=== PATIENT | female | born 1960 | race Caucasian/White ===

== ENCOUNTER 2023-02-04 22:59 | Emergency (ER) | payer MEDICARE, MEDICAID, SELFPAY ==
[2023-02-04 22:55] VITALS: BP 96/56; PULSE 75; RESP 12; O2SAT 99; BMI 25.9
[2023-02-04 23:08] LABS: Glucometer 88 mg/dL (74-106)
--- NOTE | 2023-02-04 23:21 | ED.AMS1 ---
HPI - Altered Mental Status General Stated Complaint: SUGAR HIGH Time Seen by Provider: 02/04/23 23:20 Source: patient and EMR Mode of arrival: ambulance Limitations: no limitations History of Present Illness HPI narrative: IDDM. has pump in place. States she ate ice cream and believes she bolus too much insulin. She was not aware of this until Squad was at her home standing over her and treating her. Her called Squelio. She still feels weak. Her POC BS is now 88. complains of suprapubic pain for a couple of days. No nausea, fever Related Data Home Medications Medication Instructions Recorded Confirmed atenolol 50 mg tablet mg 02/05/23 celecoxib 200 mg capsule mg 02/05/23 duloxetine 30 mg capsule,delayed mg PO 02/05/23 release duloxetine 60 mg capsule,delayed mg PO 02/05/23 release hydrocodone 7.5 mg-acetaminophen tab 02/05/23 325 mg tablet nitroglycerin 0.4 mg sublingual mg 02/05/23 tablet Allergies Allergy/AdvReac Type Severity Reaction Status Date / Time morphine Allergy Verified 02/04/23 22:54 codin Allergy Uncoded 02/04/23 22:54 Review of Systems ROS Status of ROS 10 or more systems reviewed and unremarkable except as noted in history and below PFS PFS Social History Smoking status: Never smoker Exam Constitutional: Vital Signs - 24 hr 02/04/23 22:55 02/04/23 23:30 02/04/23 23:43 Pulse Rate 75 Pulse Rate [Monito r] 75 Respiratory Rate 12 12 20 Blood Pressure Blood Pressure [Le ft Arm] 96/56 L Pulse Oximetry 99 Oxygen Delivery Me thod Room Air 02/04/23 23:44 02/04/23 23:45 02/05/23 00:00 Pulse Rate 76 80 83 Pulse Rate [Monito r] Respiratory Rate 22 12 14 Blood Pressure 98/55 L 102/67 Blood Pressure [Le ft Arm] Pulse Oximetry Oxygen Delivery Me thod 02/05/23 00:30 02/05/23 01:00 02/05/23 01:30 Pulse Rate 87 91 H 86 Pulse Rate [Monito r] Respiratory Rate 18 14 21 Blood Pressure 108/59 L 107/55 L 139/78 H Blood Pressure [Le ft Arm] Pulse Oximetry Oxygen Delivery Me thod Common normals: no apparent distress, oriented x3, healthy appearing and well nourished HENMT: Common normals: normocephalic Eye: Common normals: EOMs intact bilaterally and conjunctivae normal Neck & C-Spine: Common normals: full ROM Chest: Common normals: inspection of chest normal and inspection of breasts normal Respiratory: Common normals: normal respiratory effort, no use of accessory muscles and clear to auscultation bilaterally Effort & inspection: able to speak in complete sentences Cardio: Common normals: regular rate and regular rhythm GI: Other: mild RLQ and suprapubic tenderness. pump RLQ Back & Pelvis: Common normals: no CVA tenderness Extremity: Common normals: normal to inspection and no joint enlargement Neuro: Common normals: oriented x3 and CN's II-XII intact bilaterally Psych: Common normals: mental status grossly normal Skin: Common normals: no rashes or lesions noted and no wounds Course Vital Signs Vital signs: Vital Signs Pulse Rate 75 02/04/23 22:55 Respiratory Rate 12 02/04/23 22:55 Blood Pressure 96/56 L 02/04/23 22:55 Pulse Oximetry 99 02/04/23 22:55 Oxygen Delivery Method Room Air 02/04/23 22:55 Pulse Rate 86 02/05/23 01:30 Respiratory Rate 21 02/05/23 01:30 Blood Pressure 139/78 H 02/05/23 01:30 Pulse Oximetry 99 02/04/23 22:55 Oxygen Delivery Method Room Air 02/04/23 22:55 MDM - Altered Mental Status MDM Narrative Medical decision making narrative: patient presents with hypoglycemia.She admits to bolusing too much insulin after eating ice cream. She has been eating while here in the department and her BS is now up and she has turned her insulin pump back up. Mild elevated lactic acid which is expected after she was found unresponsive and hypoglycemic at home. She does not want to wait for a second lactic acid .Both she and her are ready to go and feel they can manage her BS at home Lab Data Labs: Lab Results 02/04/23 02/04/23 02/05/23 Range/Units 23:07 23:49 00:18 WBC 11.9 H (4.0-11.0) 10^3/uL RBC 4.69 (4.20-5.40) 10^6/uL Hgb 13.6 (12.0-16.0) g/dL Hct 42.2 (36.0-48.0) % MCV 90.0 (81.0-99.0) fL MCH 29.0 (26.7-34.0) pg MCHC 32.2 (29.9-35.2) g/dL RDW 14.5 (11.0-15.0) % Plt Count 291 (150-450) 10^3/uL MPV 10.8 (9.5-13.5) fL Neut % (Auto) 86.2 H (43.0-75.0) % Lymph % (Auto) 8.9 L (20.5-60.0) % [place] % (Auto) 3.9 (1.7-12.0) % Eos % (Auto) 0.3 L (0.9-7.0) % Baso % (Auto) 0.3 (0.2-2.0) % Neut # (Auto) 10.2 H (1.4-6.5) 10^3/uL Lymph # (Auto) 1.1 L (1.2-3.8) 10^3/uL [place] # (Auto) 0.5 (0.3-0.8) 10^3/uL Eos # (Auto) 0.0 (0.0-0.7) 10^3/uL Baso # (Auto) 0.0 (0.0-0.1) 10^3/uL POC Glucometer 88 284 H (74-106) mg/dL 02/05/23 Range/Units 01:28 WBC (4.0-11.0) 10^3/uL RBC (4.20-5.40) 10^6/uL Hgb (12.0-16.0) g/dL Hct (36.0-48.0) % MCV (81.0-99.0) fL MCH (26.7-34.0) pg MCHC (29.9-35.2) g/dL RDW (11.0-15.0) % Plt Count (150-450) 10^3/uL MPV (9.5-13.5) fL Neut % (Auto) (43.0-75.0) % Lymph % (Auto) (20.5-60.0) % [place] % (Auto) (1.7-12.0) % Eos % (Auto) (0.9-7.0) % Baso % (Auto) (0.2-2.0) % Neut # (Auto) (1.4-6.5) 10^3/uL Lymph # (Auto) (1.2-3.8) 10^3/uL [place] # (Auto) (0.3-0.8) 10^3/uL Eos # (Auto) (0.0-0.7) 10^3/uL Baso # (Auto) (0.0-0.1) 10^3/uL POC Glucometer 424 H (74-106) mg/dL Discharge Plan Discharge Clinical Impression: Hypoglycemia Mode of Transportation: Private Vehicle Prescriptions / Home Meds: No Action celecoxib 200 mg capsule hydrocodone-acetaminophen 7.5-325 mg tablet nitroglycerin 0.4 mg tablet, sublingual atenolol 50 mg tablet duloxetine 30 mg capsule,delayed release(DR/EC) PO duloxetine 60 mg capsule,delayed release(DR/EC) PO Instructions: Hypoglycemia in a Person with Diabetes (ED) Stand Alone Forms: Portal Instructions Referrals: SANTO FLORES [Primary Care Provider] - 1 week Follow Up Appointments: follow up with the family doctor next week
--- NOTE | 2023-02-04 23:24 | ECG_ITS ---
The [facility] Test Date: 2023-02-04 Pat Name: Deirdre Kan Department: Room: - Gender: Female Data Manager: : 1960 Requested By: SANTO FLORES Order Number: [id number] Reading MD: MELIZA STEPHENSON Measurements Intervals [place] Rate: 75 P: 37 [place]: 144 QRS: 60 QRSD: 88 T: 78 QT: 416 QTc: 445 Interpretive Statements 1100 Sinus rhythm 9110 normal ECG No previous ECG available for comparison Electronically Signed On 02-05-2023 15:41:55 EDT by MELIZA STEPHENSON
--- NOTE | 2023-02-04 23:24 | XR_ITS ---
The [address] [address] Patient Name: MONICA ACOSTA MRN: [id number] date: 1960 Sex: F Assigned Patient Location: ER Current Patient Location: ER Accession/Order Number: [id number] Exam Date: 02/04/2023 23:50 Report Date: 02/05/2023 00:20 At the request of: STEFFANIE FARNSWORTH Procedure: XR chest 1V CXR HISTORY: Hypoglycemia. COMPARISON: None. TECHNIQUE: 1 view of the chest submitted for review. FINDINGS: Mediastinal wires are aligned and intact. There is some platelike atelectasis in the left lung base. The lungs are adequately expanded.. The cardiac silhouette measures within normal. Pulmonary vascularity is unremarkable. Osseous structures are normal for age. IMPRESSION: 1. Platelike atelectasis in the left lung base. 2. Postop changes of the mediastinum. 3. Otherwise unremarkable for acute pathology. Electronically authenticated by: SARAH SOLIS Date: 02/05/2023 00:20
[2023-02-04 23:30] VITALS: RESP 12
[2023-02-04 23:43] VITALS: PULSE 75; RESP 20
[2023-02-04 23:44] VITALS: PULSE 76; RESP 22
[2023-02-04 23:45] VITALS: BP 98/55; PULSE 80; RESP 12
[2023-02-05] VITALS: BP 102/67; PULSE 83; RESP 14
[2023-02-05 00:21] LABS: Glucometer 284 mg/dL (74-106)
[2023-02-05 00:30] VITALS: BP 108/59; PULSE 87; RESP 18
[2023-02-05 00:39] LABS: Basophils Percent Auto 0.3 % (0.2-2.0); Eosinophils Percent Auto 0.3 % (0.9-7.0); Hematocrit 42.2 % (36.0-48.0); Hemoglobin 13.6 g/dL (12.0-16.0); Immature Granulocytes Abs Auto 0.05 10^3/uL (0.00-0.03); Immature Granulocytes Pct Auto 0.4 % (0.0-0.5); Lymphocytes Absolute Auto 1.1 10^3/uL (1.2-3.8); Lymphocytes Percent Auto 8.9 % (20.5-60.0); Mean Corpuscular HGB Conc 32.2 g/dL (29.9-35.2); Mean Platelet Volume 10.8 fL (9.5-13.5); Monocytes Absolute Auto 0.5 10^3/uL (0.3-0.8); Monocytes Percent Auto 3.9 % (1.7-12.0); Neutrophils Absolute Auto 10.2 10^3/uL (1.4-6.5); Neutrophils Percent Auto 86.2 % (43.0-75.0); Platelet Count 291 10^3/uL (150-450); Red Blood Count 4.69 10^6/uL (4.20-5.40); Red Cell Distribution Width 14.5 % (11.0-15.0); White Blood Count 11.9 10^3/uL (4.0-11.0)
[2023-02-05 01:00] VITALS: BP 107/55; PULSE 91; RESP 14
[2023-02-05] MEDS: IBUPROFEN 400 MG TABLET 800 MG PO (01:25)
[2023-02-05 01:29] LABS: Glucometer 424 mg/dL (74-106)
[2023-02-05 01:30] VITALS: BP 139/78; PULSE 86; RESP 21
[2023-02-05 01:39] LABS: Calcium 9.6 mg/dL (8.5-10.1); Carbon Dioxide 21.1 mmol/L (21.0-32.0); Chloride 97 mmol/L (98-107); Estimated GFR (African America >60 (>=60); Estimated GFR (Non-African Ame 56 (>=60); Glucose 230 mg/dL (74-106); Potassium 4.1 mmol/L (3.5-5.1); Sodium 134 mmol/L (136-145); Troponin I High Sensitivity 5.1 pg/mL (4.0-51.3)
[2023-02-05 01:44] LABS: Lactate/Lactic Acid 2.3 mmol/L (0.4-2.0)
== END 2023-02-05 02:10 | disposition home or self-care (01) ==
PROVIDERS: Emergency Provider Internal Medicine; PCP Family Medicine
DX: E11.649 Type 2 diabetes mellitus with hypoglycemia without coma (principal); Z79.4 Long term (current) use of insulin; Z96.41 Presence of insulin pump (external) (internal)
CPT/HCPCS: 36415; 36416; 71045; 80048; 81003; 82948; 83605; 84484; 84703; 85025; 93005; 99285

== ENCOUNTER 2023-03-29 12:50 | Emergency (ER) | payer MEDICARE, SELFPAY ==
[2023-03-29 12:54] VITALS: BP 139/72; PULSE 83; RESP 18; TEMP 36.2; O2SAT 97; BMI 26.5
--- NOTE | 2023-03-29 13:30 | XR_ITS ---
The [address] [address] Patient Name: MONICA ACOSTA MRN: [id number] date: 1960 Sex: F Assigned Patient Location: ER Current Patient Location: ER Accession/Order Number: [id number] Exam Date: 03/29/2023 13:35 Report Date: 03/29/2023 14:16 At the request of: YASMIN STAFFORD Procedure: XR acute abdomen series EXAMINATION: XR acute abdomen series HISTORY: Injury COMPARISON: No relevant comparison available. FINDINGS: LUNGS: No infiltrate, pneumothorax, or pleural effusion. MEDIASTINUM: No abnormal widening. Prior sternotomy. BOWEL GAS PATTERN: Non-obstructed. No abnormal dilation or suspicious fluid levels. Moderate stool burden. FREE AIR: None. CALCIFICATIONS: None significant. BONES: L1 prior mild compression fracture and vertebroplasty. No acute bone abnormality. OTHER: Negative. XR/XR acute abdomen series IMPRESSION: 1. No acute cardiopulmonary process. 2. No acute or suspicious abdominal findings. Electronically authenticated by: RICHARD BURNETTE Date: 03/29/2023 14:16
--- NOTE | 2023-03-29 13:31 | ED_ITS ---
Documented by User: PADMINI Horn 03/29/23 14:27 HPI - General Adult General Chief complaint: Abdominal Pain Stated complaint: ABD PAIN Time Seen by Provider: 03/29/23 13:25 Source: patient Source information: patient Mode of arrival: walk-in Limitations: no limitations History of Present Illness HPI narrative: patient is a 62-year-old female who presents to the emergency department for the evaluation of left upper quadrant abdominal pain that began after an injury. Patient states just prior to arrival a person in a motorized wheelchair accidentally pushed the table into her left upper abdomen. She states initially at the time of injury she had trouble breathing for a moment. She no longer feels like she is having trouble breathing, she denies any injury to the chest. She initially had some nausea but no longer feels nauseous. She had no symptoms prior to the injury. She states she feels as though she is swollen in the left upper quadrant. She takes an aspirin daily but no other anticoagulation. She denies any other associated injuries, flank or back pain. Related Data Home Medications Medication Instructions Recorded Confirmed atenolol 50 mg tablet 50 mg PO DAILY 02/05/23 03/29/23 celecoxib 200 mg capsule 200 mg PO Q24H 02/05/23 03/29/23 duloxetine 30 mg capsule,delayed 30 mg PO .DA 02/05/23 03/29/23 release duloxetine 60 mg capsule,delayed 60 mg PO DAILY 02/05/23 03/29/23 release hydrocodone 7.5 mg-acetaminophen 1 tab PO Q8H 02/05/23 03/29/23 325 mg tablet nitroglycerin 0.4 mg sublingual 0.4 mg sublingual Q5M PRN chest 02/05/23 03/29/23 tablet pain Previous Rx's Medication Instructions Recorded ondansetron 4 mg disintegrating 4 mg PO Q6H PRN nausea and 03/29/23 tablet vomiting #12 tabs Allergies Allergy/AdvReac Type Severity Reaction Status Date / Time lisinopril Allergy Intermediate Verified 03/29/23 12:57 morphine Allergy Verified 02/04/23 22:54 codin Allergy Uncoded 02/04/23 22:54 Review of Systems 2 ROS Constitutional Denies: fever or chills Ears, nose, mouth, and throat Denies: throat pain Cardiovascular Denies: chest pain Respiratory Reports: shortness of breath; Denies: cough Gastrointestinal Reports: abdominal pain and nausea; Denies: vomiting Genitourinary Denies: painful urination Musculoskeletal Denies: back pain or neck pain Integumentary/Breast Denies: rash Neurological Denies: headache PFSH [facility] Social History Smoking status: Never smoker Exam Narrative Exam Narrative: Gen.: Awake, alert, in no distress, resting comfortably and breathing easily watching a video on her phone Head: Normocephalic, atraumatic ENT: Moist mucous membranes Respiratory: No respiratory distress, lungs clear bilaterally; no tenderness of the inferior ribs or chest wall Cardio: Regular rate and rhythm Gastrointestinal: Abdomen is soft, nondistended. no palpable areas of swelling or distention, no pulsatile mass or hematoma noted. No ecchymosis, abrasion or redness of the abdomen. Insulin pump noted to the right anterior abdomen. Left upper quadrant is mildly tender to palpation with no pain out of proportion or rebound tenderness. No guarding noted. Extremities: Moves extremities equally, no injuries noted Psych: Normal mood and affect Neuro: No focal neuro deficit Skin: Warm, dry, intact Constitutional Vital Signs, click to edit/add: Last Vital Signs Temp 97.2 F L 03/29/23 12:54 Pulse 83 03/29/23 12:54 Resp 18 03/29/23 12:54 BP 139/72 H 03/29/23 12:54 Pulse Ox 97 03/29/23 12:54 O2 Del Method Room Air 03/29/23 12:54 Course Vital Signs Vital signs: Vital Signs Temperature 97.2 F L 03/29/23 12:54 Pulse Rate 83 03/29/23 12:54 Respiratory Rate 18 03/29/23 12:54 Blood Pressure 139/72 H 03/29/23 12:54 Pulse Oximetry 97 03/29/23 12:54 Oxygen Delivery Method Room Air 03/29/23 12:54 Temperature 97.2 F L 03/29/23 12:54 Pulse Rate 83 03/29/23 12:54 Respiratory Rate 18 03/29/23 12:54 Blood Pressure 139/72 H 03/29/23 12:54 Pulse Oximetry 97 03/29/23 12:54 Oxygen Delivery Method Room Air 03/29/23 12:54 Medical Decision Making MDM Narrative Medical decision making narrative: patient treated with NSAIDs in the emergency department. Abdomen is soft and benign in the Emergency Room with no pain out of proportion on exam or unstable vital signs. No evidence on abdominal exam of surgical abdomen. Abdominal x-rays performed as the patient stated she had difficulty breathing and upper abdominal tenderness at the time of the injury. Abdominal x-rays and chest x-ray with no evidence of acute cardiopulmonary changes or acute abnormalities. Patient discharged home to apply ice to area of injury, she is on Celebrex daily. follow-up with PCP and return to the Emergency Room if symptoms change or worsen. Patient's prescription list shows she takes [place] three times a day. follow-up with PCP. Medical Records Medical records reviewed: Yes I reviewed the patient's medical records Imaging Data Abdominal x-ray: Attestation: I have reviewed the pertinent imaging results. Radiologist's impression: Procedure: XR acute abdomen series EXAMINATION: XR acute abdomen series HISTORY: Injury COMPARISON: No relevant comparison available. FINDINGS: LUNGS: No infiltrate, pneumothorax, or pleural effusion. MEDIASTINUM: No abnormal widening. Prior sternotomy. BOWEL GAS PATTERN: Non-obstructed. No abnormal dilation or suspicious fluid levels. Moderate stool burden. FREE AIR: None. CALCIFICATIONS: None significant. BONES: L1 prior mild compression fracture and vertebroplasty. No acute bone abnormality. OTHER: Negative. IMPRESSION: 1. No acute cardiopulmonary process. 2. No acute or suspicious abdominal findings. Electronically authenticated by: RICHARD BURNETTE Date: 03/29/2023 14:16 Discharge Plan Discharge Chief Complaint: Abdominal Pain Clinical Impression: Abdominal wall contusion Patient Disposition: Home, Self-Care Time of Disposition Decision: 14:24 Condition: Good Prescriptions / Home Meds: New ondansetron 4 mg tablet,disintegrating 4 mg PO Q6H PRN (Reason: nausea and vomiting) Qty: 12 0RF No Action celecoxib 200 mg capsule 200 mg PO Q24H hydrocodone-acetaminophen 7.5-325 mg tablet 1 tab PO Q8H nitroglycerin 0.4 mg tablet, sublingual 0.4 mg sublingual Q5M PRN (Reason: chest pain) atenolol 50 mg tablet 50 mg PO DAILY duloxetine 30 mg capsule,delayed release(DR/EC) 30 mg PO .DA duloxetine 60 mg capsule,delayed release(DR/EC) 60 mg PO DAILY Hold Instructions: Doctor's Order Instructions: Blunt Abdominal Injury (ED), Contusion in Adults (ED) Stand Alone Forms: Portal Instructions Referrals: SANTO FLORES [Primary Care Provider] - 1 week Discharge Date/Time: 03/29/23 14:34 Documented by User: Solo Cordero MD 03/29/23 20:21 HPI - General Adult General Chief complaint: Abdominal Pain Stated complaint: ABD PAIN Time Seen by Provider: 03/29/23 13:25 Related Data Home Medications Medication Instructions Recorded Confirmed atenolol 50 mg tablet 50 mg PO DAILY 02/05/23 03/29/23 celecoxib 200 mg capsule 200 mg PO Q24H 02/05/23 03/29/23 duloxetine 30 mg capsule,delayed 30 mg PO .DA 02/05/23 03/29/23 release duloxetine 60 mg capsule,delayed 60 mg PO DAILY 02/05/23 03/29/23 release hydrocodone 7.5 mg-acetaminophen 1 tab PO Q8H 02/05/23 03/29/23 325 mg tablet nitroglycerin 0.4 mg sublingual 0.4 mg sublingual Q5M PRN chest 02/05/23 03/29/23 tablet pain Previous Rx's Medication Instructions Recorded ondansetron 4 mg disintegrating 4 mg PO Q6H PRN nausea and 03/29/23 tablet vomiting #12 tabs Allergies Allergy/AdvReac Type Severity Reaction Status Date / Time lisinopril Allergy Intermediate Verified 03/29/23 12:57 morphine Allergy Verified 02/04/23 22:54 codin Allergy Uncoded 02/04/23 22:54 PFSH PFSH Social History Smoking status: Never smoker Exam Constitutional Vital Signs, click to edit/add: Last Vital Signs Temp 97.2 F L 03/29/23 12:54 Pulse 83 03/29/23 12:54 Resp 18 03/29/23 12:54 BP 139/72 H 03/29/23 12:54 Pulse Ox 97 03/29/23 12:54 O2 Del Method Room Air 03/29/23 12:54 Course Vital Signs Vital signs: Vital Signs Temperature 97.2 F L 03/29/23 12:54 Pulse Rate 83 03/29/23 12:54 Respiratory Rate 18 03/29/23 12:54 Blood Pressure 139/72 H 03/29/23 12:54 Pulse Oximetry 97 03/29/23 12:54 Oxygen Delivery Method Room Air 03/29/23 12:54 Temperature 97.2 F L 03/29/23 12:54 Pulse Rate 83 03/29/23 12:54 Respiratory Rate 18 03/29/23 12:54 Blood Pressure 139/72 H 03/29/23 12:54 Pulse Oximetry 97 03/29/23 12:54 Oxygen Delivery Method Room Air 03/29/23 12:54 Medical Decision Making MDM Narrative Medical decision making narrative: patient treated with NSAIDs in the emergency department. Abdomen is soft and benign in the Emergency Room with no pain out of proportion on exam or unstable vital signs. No evidence on abdominal exam of surgical abdomen. Abdominal x-rays performed as the patient stated she had difficulty breathing and upper abdominal tenderness at the time of the injury. Abdominal x-rays and chest x-ray with no evidence of acute cardiopulmonary changes or acute abnormalities. Patient discharged home to apply ice to area of injury, she is on Celebrex daily. follow-up with PCP and return to the Emergency Room if symptoms change or worsen. Patient's prescription list shows she takes [place] three times a day. follow-up with PCP. I, Dr Cordero, have reviewed the above progress note and course of action in the ER; agree with the above. I have personally gone over history and physical, and discussed disposition and treatment plan with the PA/patient. Discharge Plan Discharge Chief Complaint: Abdominal Pain Clinical Impression: Abdominal wall contusion Patient Disposition: Home, Self-Care Time of Disposition Decision: 14:24 Condition: Good Prescriptions / Home Meds: New ondansetron 4 mg tablet,disintegrating 4 mg PO Q6H PRN (Reason: nausea and vomiting) Qty: 12 0RF No Action celecoxib 200 mg capsule 200 mg PO Q24H hydrocodone-acetaminophen 7.5-325 mg tablet 1 tab PO Q8H nitroglycerin 0.4 mg tablet, sublingual 0.4 mg sublingual Q5M PRN (Reason: chest pain) atenolol 50 mg tablet 50 mg PO DAILY duloxetine 30 mg capsule,delayed release(DR/EC) 30 mg PO .DA duloxetine 60 mg capsule,delayed release(DR/EC) 60 mg PO DAILY Hold Instructions: Doctor's Order Instructions: Blunt Abdominal Injury (ED), Contusion in Adults (ED) Stand Alone Forms: Portal Instructions Referrals: SANTO FLORES [Primary Care Provider] - 1 week Discharge Date/Time: 03/29/23 14:34
[2023-03-29] MEDS: KETOROLAC TROMETHAMINE 10 MG TABLET PO (14:00)
== END 2023-03-29 14:34 | disposition home or self-care (01) ==
PROVIDERS: Emergency Provider Emergency Medicine; PCP Family Medicine
DX: S30.1XXA Contusion of abdominal wall, initial encounter (principal); W22.8XXA Striking against or struck by other objects, initial encounter; Z79.899 Other long term (current) drug therapy
CPT/HCPCS: 74022; 99283

== ENCOUNTER 2023-04-15 09:28 | Outpatient (OUT) | payer MEDICARE, MEDICAID, SELFPAY | END 2023-04-15 09:29 | disposition home or self-care (01) | PROVIDERS: PCP Family Medicine; Visit Provider Podiatrist Foot & Ankle Surgery | DX: L60.8 Other nail disorders (principal) | CPT/HCPCS: G0463 ==

== ENCOUNTER 2024-02-07 17:31 | Emergency (ER) | payer MEDICARE, MEDICAID, SELFPAY ==
[2024-02-07 17:33] VITALS: BP 143/71; PULSE 81; TEMP 36.9; O2SAT 97; BMI 28.0
--- NOTE | 2024-02-07 17:35 | CT_ITS ---
The [address] [address] Patient Name: MONICA ACOSTA MRN: [id number] date: 1960 Sex: F Assigned Patient Location: ED.MAIN Current Patient Location: Accession/Order Number: [id number] Exam Date: 02/07/2024 15:55 Report Date: 02/07/2024 19:52 At the request of: BONNIE TRAN Procedure: CT cervical spine wo con CT CERVICAL SPINE WITHOUT : 02/07/2024 3:55 PM EDT HISTORY: Neck pain. TECHNIQUE: Thin section axial CT images were obtained from the foramen magnum to the T1 vertebral body. Thin section sagittal and coronal reconstructed images were performed from the axial data set. Dose reduction techniques were achieved by using automated exposure control and/or adjustment of mA and/or kV according to patient size and/or use of iterative reconstruction technique. CONTRAST: None. COMPARISON: None. FINDINGS: There is no fracture or vertebral body height loss. There is no destructive osseous lesion. Normal anatomic alignment is maintained. There is no spondylolisthesis. There is no significant degenerative change. Osseous mineralization is within normal limits. The paraspinal soft tissues are unremarkable. There is no prevertebral soft tissue swelling. There is no significant central canal or neural foraminal narrowing in the cervical region or upper thoracic spine. Bilateral facet joints are well maintained and well aligned. Diffusely calcified bilateral carotid arteries at the neck at the carotid bulb. Region. CT/CT cervical spine wo con IMPRESSION: No fracture or malalignment. Electronically authenticated by: RADHA LESTER Date: 02/07/2024 19:52
--- NOTE | 2024-02-07 17:35 | CT_ITS ---
The [address] [address] Patient Name: MONICA ACOSTA MRN: [id number] date: 1960 Sex: F Assigned Patient Location: ED.MAIN Current Patient Location: Accession/Order Number: [id number] Exam Date: 02/07/2024 15:55 Report Date: 02/07/2024 19:39 At the request of: BONNIE TRAN Procedure: CT thoracic spine wo con EXAM: CT thoracic spine wo con HISTORY: fall COMPARISON: None. TECHNIQUE: Contiguous thin section axial scans obtained from lower cervical to upper lumbar spine with coronal and sagittal reformatted images. Dose reduction techniques were achieved by using automated exposure control and/or adjustment of mA and/or kV according to patient size and/or use of iterative reconstruction technique. FINDINGS: Patient has had previous fracture treatment of L1 vertebrae with bone cement present likely from prior vertebroplasty. Old superior endplate healed burst fracture with slight retropulsion of L1. There is slight increased thoracic kyphosis in the upper thoracic spine but no acute thoracic spine fractures. Normal height of vertebrae. No spondylolisthesis or dislocation. Patient slightly tilted to the right and the gantry. Overall disc heights and facet joints are normal. No central canal or neural foraminal stenosis. No acute paraspinal soft tissue changes. There is some left basilar dependent lower lobe bronchiectasis with soft tissue changes around bronchi. Could be chronic infiltrate. Query acute versus chronic. There is some scarring and atelectasis at right lower lobe. Coronary artery calcifications. No rib fractures are seen adjacent to the thoracic spine. Diffuse osseous demineralization. Incidentally noted small sliding-type hernia. Dense coronary artery calcifications are partially seen. CT/CT thoracic spine wo con IMPRESSION: 1. No acute thoracic spine fractures or acute malalignment abnormality. 2. A prior fracture treatment of L1 vertebrae with bone cement. 3. Parenchymal changes of lungs at left lower lobe as discussed. Chronic left basilar bronchiectasis with either acute or chronic infiltrate left lower lobe. 4. Suggestion of severe coronary artery calcific disease. 5. Small sliding-type hernia. Electronically authenticated by: RADHA LESTER Date: 02/07/2024 19:39
--- NOTE | 2024-02-07 17:35 | XR_ITS ---
The [address] [address] Patient Name: MONICA ACOSTA MRN: [id number] date: 1960 Sex: F Assigned Patient Location: ED.MAIN Current Patient Location: ER Accession/Order Number: [id number] Exam Date: 02/07/2024 18:27 Report Date: 02/07/2024 19:53 At the request of: BONNIE TRAN Procedure: XR knee LT 3V EXAM: XR knee LT 3V HISTORY: fall COMPARISON: None. TECHNIQUE: 3 view left knee submitted. FINDINGS: Small joint effusion seen on lateral view obtained crosstable without obvious fluid layering. There is some mild joint space loss medial compartment likely on a degenerative basis. Joints otherwise well preserved. No subluxation or dislocation. No acute fracture is seen. Adequate bone mineralization for age. No osseous lesion or destructive process. Normal soft tissues. XR/XR knee LT 3V IMPRESSION: Small reactive joint effusion. No acute fractures seen. Electronically authenticated by: RADHA LESTER Date: 02/07/2024 19:53
--- NOTE | 2024-02-07 17:35 | CT_ITS ---
The [address] [address] Patient Name: MONICA ACOSTA MRN: [id number] date: 1960 Sex: F Assigned Patient Location: ED.MAIN Current Patient Location: ED.MAIN Accession/Order Number: [id number] Exam Date: 02/07/2024 15:55 Report Date: 02/07/2024 19:36 At the request of: BONNIE TRAN Procedure: CT head/brain wo con CT OF THE BRAIN WITHOUT CONTRAST: 02/07/2024 3:55 PM EDT HISTORY: Fell and hit head. TECHNIQUE: Contiguous axially collimated images were obtained through the intracranial compartment, from the vertex through the foramen magnum. Coronal and Sagittal reformatted images were prepared on a separate workstation and reviewed on the PACS for anatomic correlation. No contrast was administered. This CT exam was performed using one or more of the following dose reduction techniques: Automated exposure control, adjustment of the mA and/or kV according to patient size, or use of iterative reconstruction technique. Thin section coronal and sagittal images were reconstructed from the axial data set. All images were reviewed and interpreted. COMPARISON: None. FINDINGS: There is no intracranial hemorrhage or abnormal extra-axial fluid collection. To the extent of evaluated with noncontrast technique, there is no mass lesion appreciated. There is no mass-effect or shift of midline structures. There is mild age-related global brain volume loss with prominence of the ventricles and CSF spaces. There is no evidence of hydrocephalus. There is no effacement of the basal cisterns. No evidence of acute ischemia. Minimal chronic small vessel ischemic change. There is no evidence of a lacunar infarct. The posterior fossa, brain stem, and fourth ventricle are normal. There is no tonsillar ectopy. The calvarium is intact, without destructive lesion or depressed fracture. The mastoid air cells are well-aerated. The paranasal sinuses are normally aerated. CT/CT head/brain wo con IMPRESSION: No acute intracranial findings are process. Electronically authenticated by: RADHA LESTER Date: 02/07/2024 19:36
--- NOTE | 2024-02-07 17:35 | XR_ITS ---
The [address] [address] Patient Name: MONICA ACOSTA MRN: [id number] date: 1960 Sex: F Assigned Patient Location: ED.MAIN Current Patient Location: ER Accession/Order Number: [id number] Exam Date: 02/07/2024 18:27 Report Date: 02/07/2024 19:53 At the request of: BONNIE TRAN Procedure: XR shoulder RT min 2V EXAM: XR shoulder RT min 2V HISTORY: fall COMPARISON: None. TECHNIQUE: 2 views submitted. FINDINGS: No fracture or dislocation or acute subluxation. The acromioclavicular and glenohumeral joints are well-maintained. Osseous demineralization. No destructive or erosive change. Normal soft tissues. XR/XR shoulder RT min 2V IMPRESSION: No acute bone or joint findings. Electronically authenticated by: RADHA LESTER Date: 02/07/2024 19:53
--- NOTE | 2024-02-07 17:35 | CT_ITS ---
The [address] [address] Patient Name: MONICA ACOSTA MRN: [facility]:[id number] date: 1960 Sex: F Assigned Patient Location: ED.MAIN Current Patient Location: Accession/Order Number: [id number] Exam Date: 02/07/2024 15:55 Report Date: 02/07/2024 19:43 At the request of: BONNIE TRAN Procedure: CT lumbar spine wo con EXAM: CT lumbar spine wo con HISTORY: trauma COMPARISON: CT thoracic spine same day TECHNIQUE: Contiguous thin section axial scans obtained from lower thoracic spine through lower sacrum at S3-4 with coronal and sagittal reconstructed images. Reviewed in bone and soft tissue windows. Dose reduction techniques were achieved by using automated exposure control and/or adjustment of mA and/or kV according to patient size and/or use of iterative reconstruction technique. FINDINGS: Old superior L1 burst fracture, status post vertebral plasty treatment with placement of bone cement. There is some extravasation of bone cement into the left psoas muscle. This is chronic. There is approximately 25-30% loss of height of the anterior superior L1 vertebrae with retropulsion. This is chronic. No acute lumbosacral fractures are evident. Satisfactory alignment of vertebrae. Osseous demineralization probable osteoporosis. There is some mild anterior endplate spondylosis from T12-L1 through L3-4. The disc heights are maintained from L1-2 through L5-S1. No central canal or concerning neural foraminal stenosis. Facet joints are well aligned and maintained. No acute paraspinal soft tissue abnormality. There are a few nonobstructing calculi in calyces of both kidneys. These are small, 1 to 2 mm each, 1 midpole right kidney and lower pole right kidney and one lower pole left kidney. Retroperitoneal structures are otherwise unremarkable. Both SI joints are maintained with some mild degenerative narrowing. CT/CT lumbar spine wo con IMPRESSION: 1. No acute lumbosacral fractures. 2. Old healed superior L1 burst fracture with retropulsion. Status post treatment with bone cement from prior vertebral plasty. See comments above. 3. Other chronic changes as discussed. Electronically authenticated by: RADHA LESTER Date: 02/07/2024 19:43
--- NOTE | 2024-02-07 17:48 | ED_ITS ---
HPI HPI - Fall General Chief Complaint: Fall Stated Complaint: Fall Time Seen by Provider: 02/07/24 17:35 Source: patient Mode of arrival: ambulance History of Present Illness HPI Narrative: Patient states she was sitting in a lawn chair at a baseball game and the ground was uneven. The lawn chair tipped over and she fell with a lawn chair backwards. She says she hit her head she complains of neck pain mid back and low back pain. She complains of left knee pain and right shoulder pain. She said she did not lose consciousness. She is not on blood thinners except for an aspirin daily. She denies chest pain. No neurological deficit. She states she is allergic to codeine and morphine. She is requesting pain medication. She arrived in a c-collar with EMS. No obvious external signs of trauma. Related Data Home Medications ?Medication ?Instructions ?Recorded ?Confirmed atenolol 50 mg tablet 50 mg PO DAILY 02/05/23 03/29/23 celecoxib 200 mg capsule 200 mg PO Q24H 02/05/23 03/29/23 duloxetine 30 mg capsule,delayed 30 mg PO .DA 02/05/23 03/29/23 release duloxetine 60 mg capsule,delayed 60 mg PO DAILY 02/05/23 03/29/23 release hydrocodone 7.5 mg-acetaminophen 1 tab PO Q8H 02/05/23 03/29/23 325 mg tablet nitroglycerin 0.4 mg sublingual 0.4 mg sublingual Q5M PRN chest 02/05/23 03/29/23 tablet pain Previous Rx's ?Medication ?Instructions ?Recorded ondansetron 4 mg disintegrating 4 mg PO Q6H PRN nausea and 03/29/23 tablet vomiting #12 tabs Allergies Allergy/AdvReac Type Severity Reaction Status Date / Time lisinopril Allergy Intermediate Verified 03/29/23 12:57 Opioid HPI Opioid Management Most Recent Pain and Opioid Data: No Data to Display Review of Systems ROS Status of ROS 10 or more systems reviewed and unremark able except as noted in history and below PFSH PFSH Social History Smoking status: Never smoker Exam Narrative Exam Narrative: Time Seen: [] Vital Signs: [Per nurse's notes.] General: [Alert] Skin: [Warm, dry, no rash.] Head: [Normocephalic, atraumatic.] Neck: [Supple, trachea midline.Diffuse C-spine tenderness Eye: [Pupils are equal, round and reactive to light, extraocular movements are intact, normal conjunctiva.] Ears, nose, mouth and throat: oral mucosa moist. Cardiovascular: [Regular rate and rhythm, no murmur.] Respiratory: [Lungs are clear to auscultation, respirations are non-labored, breath sounds are equal.] Chest wall: [No tenderness, no deformity.] Gastrointestinal: [Soft, nontender, non distended, normal bowel sounds.] MSK: 5 out of 5 muscle strength x 4 extremities no calf pain or edema. Diffuse left knee tenderness. Diffuse right shoulder tenderness and pain with range of motion of the right arm. He has some mid back and low back pain. Lymphatics: [No lymphadenopathy.] Psychiatric: [Cooperative, appropriate mood & affect.] Neurological: [Alert and oriented to person, place, time, and situation, no focal neurological deficit observed.] Constitutional Vital Signs, click to edit/add: Last Vital Signs Temp 98.4 F 02/07/24 17:33 Pulse 81 02/07/24 17:33 Resp 16 02/07/24 17:33 BP 143/71 H 02/07/24 17:33 Pulse Ox 97 02/07/24 17:33 O2 Del Method Room Air 02/07/24 17:33 Course Vital Signs Vital signs: Vital Signs Temperature 98.4 F 02/07/24 17:33 Pulse Rate 81 02/07/24 17:33 Respiratory Rate 16 02/07/24 17:33 Blood Pressure 143/71 H 02/07/24 17:33 Pulse Oximetry 97 02/07/24 17:33 Oxygen Delivery Method Room Air 02/07/24 17:33 Temperature 98.4 F 02/07/24 17:33 Pulse Rate 81 02/07/24 17:33 Respiratory Rate 16 02/07/24 17:33 Blood Pressure 143/71 H 02/07/24 17:33 Pulse Oximetry 97 02/07/24 17:33 Oxygen Delivery Method Room Air 02/07/24 17:33 Discharge Plan Discharge Chief Complaint: Fall Prescriptions / Home Meds: No Action ondansetron 4 mg tablet,disintegrating 4 mg PO Q6H PRN (Reason: nausea and vomiting) Qty: 12 0RF celecoxib 200 mg capsule 200 mg PO Q24H hydrocodone-acetaminophen 7.5-325 mg tablet 1 tab PO Q8H nitroglycerin 0.4 mg tablet, sublingual 0.4 mg sublingual Q5M PRN (Reason: chest pain) atenolol 50 mg tablet 50 mg PO DAILY duloxetine 30 mg capsule,delayed release(DR/EC) 30 mg PO .DA duloxetine 60 mg capsule,delayed release(DR/EC) 60 mg PO DAILY Hold Instructions: Doctor's Order Print Language: Rwandan Referrals: SANTO FLORES [Primary Care Provider] - 1 week
[2024-02-07] MEDS: OXYCODONE HCL/ACETAMINOPHEN 5MG/325MG 1 TAB PO (17:54)
--- NOTE | 2024-02-07 18:24 | PC.NURSE ---
pt sat in a lawn chair and fell backwards hit head neck and tail bone pt in ct at this time no loc
--- NOTE | 2024-02-07 20:06 | ED_ITS ---
HPI HPI - Fall General Chief Complaint: Fall Stated Complaint: Fall Time Seen by Provider: 02/07/24 17:35 Source: patient Mode of arrival: ambulance History of Present Illness HPI Narrative: 63-year-old female presented to the emergency department and was initially seen by Dr. Levine. The patient was signed out to me after discussing the case thoroughly. Please see her full history and physical exam. Related Data Home Medications ?Medication ?Instructions ?Recorded ?Confirmed atenolol 50 mg tablet 50 mg PO DAILY 02/05/23 03/29/23 celecoxib 200 mg capsule 200 mg PO Q24H 02/05/23 03/29/23 duloxetine 30 mg capsule,delayed 30 mg PO .DA 02/05/23 03/29/23 release duloxetine 60 mg capsule,delayed 60 mg PO DAILY 02/05/23 03/29/23 release hydrocodone 7.5 mg-acetaminophen 1 tab PO Q8H 02/05/23 03/29/23 325 mg tablet nitroglycerin 0.4 mg sublingual 0.4 mg sublingual Q5M PRN chest 02/05/23 03/29/23 tablet pain Previous Rx's ?Medication ?Instructions ?Recorded ondansetron 4 mg disintegrating 4 mg PO Q6H PRN nausea and 03/29/23 tablet vomiting #12 tabs Allergies Allergy/AdvReac Type Severity Reaction Status Date / Time lisinopril Allergy Intermediate Verified 03/29/23 12:57 Opioid HPI Opioid Management Most Recent Pain and Opioid Data: Last Pain Scale 6 02/07/24 17:54 Last MAR Pain Assessment 02/07/24 17:54 PFSH PFSH Social History Smoking status: Never smoker Exam Constitutional Vital Signs, click to edit/add: Last Vital Signs Temp 98.4 F 02/07/24 17:33 Pulse 81 02/07/24 17:33 Resp 16 02/07/24 17:33 BP 143/71 H 02/07/24 17:33 Pulse Ox 97 02/07/24 17:33 O2 Del Method Room Air 02/07/24 17:33 Course Vital Signs Vital signs: Vital Signs Temperature 98.4 F 02/07/24 17:33 Pulse Rate 81 02/07/24 17:33 Respiratory Rate 16 02/07/24 17:33 Blood Pressure 143/71 H 02/07/24 17:33 Pulse Oximetry 97 02/07/24 17:33 Oxygen Delivery Method Room Air 02/07/24 17:33 Temperature 98.4 F 02/07/24 17:33 Pulse Rate 81 02/07/24 17:33 Respiratory Rate 16 02/07/24 17:33 Blood Pressure 143/71 H 02/07/24 17:33 Pulse Oximetry 97 02/07/24 17:33 Oxygen Delivery Method Room Air 02/07/24 17:33 MDM - Fall MDM Narrative Medical decision making narrative: All radiographs show no acute findings. She was ambulated and is now able to be discharged home. Findings are discussed with the patient and her family. Imaging Data CT C-spine: Radiologist's impression: ITS Impressions Cervical Spine CT 02/07/24 17:35 IMPRESSION: No fracture or malalignment. Electronically authenticated by: RADHA LESTER Date: 02/07/2024 19:[address] 02/07/24 17:35 IMPRESSION: No acute intracranial findings are process. Electronically authenticated by: RADHA LESTER Date: 02/07/2024 19:36 Knee X-Ray 02/07/24 17:35 IMPRESSION: Small reactive joint effusion. No acute fractures seen. Electronically authenticated by: RADHA LESTER Date: 02/07/2024 19:[address] 02/07/24 17:35 IMPRESSION: 1. No acute lumbosacral fractures. 2. Old healed superior L1 burst fracture with retropulsion. Status post treatment with bone cement from prior vertebral plasty. See comments above. 3. Other chronic changes as discussed. Electronically authenticated by: RADHA LESTER Date: 02/07/2024 19:43 Shoulder X-Ray 02/07/24 17:35 IMPRESSION: No acute bone or joint findings. Electronically authenticated by: RADHA LESTER Date: 02/07/2024 19:[address] 02/07/24 17:35 IMPRESSION: 1. No acute thoracic spine fractures or acute malalignment abnormality. 2. A prior fracture treatment of L1 vertebrae with bone cement. 3. Parenchymal changes of lungs at left lower lobe as discussed. Chronic left basilar bronchiectasis with either acute or chronic infiltrate left lower lobe. 4. Suggestion of severe coronary artery calcific disease. 5. Small sliding-type hernia. Electronically authenticated by: RAHDA LESTER Date: 02/07/2024 19:39 Discharge Plan Discharge Stand Alone Forms: Portal Instructions Chief Complaint: Fall Clinical Impression: Fall Patient Disposition: Home, Self-Care Time of Disposition Decision: 20:06 Condition: Good Mode of Transportation: Private Vehicle Prescriptions / Home Meds: No Action ondansetron 4 mg tablet,disintegrating 4 mg PO Q6H PRN (Reason: nausea and vomiting) Qty: 12 0RF celecoxib 200 mg capsule 200 mg PO Q24H hydrocodone-acetaminophen 7.5-325 mg tablet 1 tab PO Q8H nitroglycerin 0.4 mg tablet, sublingual 0.4 mg sublingual Q5M PRN (Reason: chest pain) atenolol 50 mg tablet 50 mg PO DAILY duloxetine 30 mg capsule,delayed release(DR/EC) 30 mg PO .DA duloxetine 60 mg capsule,delayed release(DR/EC) 60 mg PO DAILY Hold Instructions: Doctor's Order Print Language: Kazakh Instructions: Fall Prevention for Older Adults (ED) Referrals: SANTO FLORES [Primary Care Provider] - 1 week
[2024-02-07 20:13] VITALS: BP 145/72; PULSE 81; O2SAT 98
== END 2024-02-07 20:18 | disposition home or self-care (01) ==
PROVIDERS: Emergency Provider Emergency Medicine; PCP Family Medicine
DX: Z04.3 Encounter for examination and observation following other accident (principal)
CPT/HCPCS: 70450; 72125; 72128; 72131; 73030; 73562; 99284

== ENCOUNTER 2024-04-21 16:29 | Emergency (ER) | payer MEDICARE, MEDICAID, SELFPAY ==
[2024-04-21] VITALS (27 sets, daily range): BP systolic 115–132; BP diastolic 67–71; PULSE 90–103; TEMP 36.7; O2SAT 88–98; BMI 30.3
--- NOTE | 2024-04-21 16:35 | ECG_ITS ---
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
--- NOTE | 2024-04-21 16:38 | XR_ITS ---
The [address] [address] Patient Name: MONICA ACOSTA MRN: [facility]:[id number] date: 1960 Sex: F Assigned Patient Location: ER Current Patient Location: .[facility] Accession/Order Number: [id number] Exam Date: 04/21/2024 17:10 Report Date: 04/21/2024 18:27 At the request of: JULIO CESAR GARDNER Procedure: XR tibia fibula VIC 2V EXAM: XR tibia fibula VIC 2V HISTORY: fall, tib fib injuries B/L COMPARISON: Left knee x-ray 02/07/2024. Right foot, ankle 03/13/2022. TECHNIQUE: AP lateral right lower leg knee to ankle. AP lateral left lower leg knee to ankle. FINDINGS: Right lower leg/tibia-fibula: Lungs are demineralized. Multiple fractures noted distal and proximal. . Comminuted fracture of the distal tibia above the ankle with angulation. Fracture of the adjacent fibula mildly displaced. Measures do not extend to the ankle. Fracture of the proximal fibula at the knee possible extension to the tibial fibular joint which demonstrates degenerative spurring. Visualized knee without fracture or joint effusion involving femur or patella. Foot abnormalities including postoperative appearance of metatarsals appear chronic and unchanged. Generative changes at the ankle. Left lower leg tibia-fibula: Comminuted fractures of the distal tibia and fibular shaft proximal to the ankle. Delayed displaced fibular fracture fragments. Posterior displacement distal fragment tibia with mild angulation. Findings suggest a large central fragment on the AP view. Next No proximal femur fracture. Question minimal nondisplaced fracture neck of the fibula at the knee. Vascular soft tissue clip. Postoperative changes foot partially imaged. XR/XR tibia fibula VIC 2V IMPRESSION: 1. Right lower leg demonstrates comminuted fractures distal tibial shaft of fibula proximal to the ankle. 2. Fracture proximal fibula on the right at the knee mildly displaced. 3. Left lower leg comminuted fractures distal tibia and fibular shaft proximal to the ankle. Question a hairline nondisplaced fracture fibular neck at the knee. 4. Bones appear demineralized. No suspicious focal bone lesion. Degenerative changes at the ankles poorly visualized. 5. postoperative findings right and left foot partially imaged. Electronically authenticated by: JOEL DONAHUE Date: 04/21/2024 18:27
--- OUTSIDE RECORDS SUMMARY | 2024-04-21 16:38 | XMS_ITS | CCD ---
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 Dry Cleaner Presser Name Role Phone SELF, REFERRED Referring Unavailable YISEL, ALEXANDER Admitting Unavailable CHILANGO MARTINEZ Surgeon Unavailable DIONNE HYATT Attending Unavailable CT Procedure Practitioner Unavailab le UNKNOWN, PHYSICIAN Primary Care Unavailable SELF, REFERRED Referring Unavailable SELF, REFERRED Primary Care Unavailable CHILANGO MARTINEZ K Attending Unavailable SERENA MARTINEZSEIN K Admitting Unavailable Veronica Mcneill Unavailable RADHA BRANNON Admitting Unavailable RADHA BRANNON Attending Unavailable FURLOWILFREDO, DR ZEN Reinoso Primary Care Unavailable HIGHLRADHA VASQUEZ Consulting Unavailable MIKA, REBECCA Consulting Unavailable RADHA BRANNON Admitting Unavailable CLOVIS, RADHA Nogueira Attending Unavailable FURLONG, DR ZEN Reinoso Primary Care Unavailable RADHA BRANNON Admitting Unavailable RADHA BRANNON Attending Unavailable FURLONG, DR ZEN Reinoso Primary Care Unavailable FURLONG, DR ZEN Reinoso Primary Care Unavailable MARKER, DR MANJARREZ Admitting Unavailable MARKER, DR MANJARREZ Attending Unavailable MARKER, DR MANJARREZ Consulting Unavailable LAZARUS QUINTANILLA Consulting Unavailable RADHA BRANNON Admitting Unavailable RADHA BRANNON Attending Unavailable FURLONG, DR ZEN Reinoso Primary Care Unavailable HIGHLRADHA VASQUEZ Consulting Unavailable BRENNAN, REBECCA Consulting Unavailable RADHA BRANNON Admitting Unavailable CLOVIS, RADHA Nogueira Attending Unavailable FURLONG, DR ZEN Reinoso Primary Care Unavailable RADHA BRANNON Admitting Unavailable RADHA BRANNON Attending Unavailable FURLONG, DR ZEN Reinoso Primary Care Unavailable ABBAS, DR BLANCO Admitting Unavailable ABBAS, DR BLANCO Attending Unavailable FURLONG, DR ZEN Reinoso Primary Care Unavailable ABBAS, DR BLANCO Consulting Unavailable YOMAIRA, DR RICHARD Sidhu Consulting Unavailable RADHA BRANNON Consulting Unavailable KUNS, DR DEMETRA Sidhu Admitting Unavailable KUNS, DR DEMETRA Sidhu Attending Unavailable FURLONG, DR ZEN Reinoso Primary Care Unavailable ZIEBER, DR RICHARD Sidhu Consulting Unavailable CHARLOTTE, DR DEMETRA Sidhu Consulting Unavailable HIGHLANDER, RADHA Nogueira Admitting Unavailable HIGHLANDER, RADHA Nogueira Attending Unavailable FURLONG, DR ZEN Reinoso Primary Care Unavailable HIGHLANDER, RADHA Nogueira Consulting Unavailable HIGHLANDER, RADHA Nogueira Admitting Unavailable HIGHLANDER, RADHA Nogueira Attending Unavailable FURLONG, DR ZEN Reinoso Primary Care Unavailable HIGHLANDER, RADHA Nogueira Admitting Unavailable HIGHLANDER, RADHA Nogueira Attending Unavailable FURLONG, DR ZEN Reinoso Primary Care Unavailable LA[place] CHARLES, DR ANN García Consulting Unavailable HIGHLANDER, RADHA Nogueira Consulting Unavailable HIGHLANDER, RADHA Nogueira Admitting Unavailable HIGHLANDER, RADHA Nogueira Attending Unavailable FURLONG, DR ZEN Reinoso Primary Care Unavailable HIGHLANDER, RADHA Nogueira Admitting Unavailable HIGHLANDER, RADHA Nogueira Attending Unavailable FURLONG, DR ZEN Reinoso Primary Care Unavailable HIGHLANDER, RADHA Nogueira Admitting Unavailable HIGHLANDER, RADHA Nogueira Attending Unavailable FURLONG, DR ZEN Reinoso Primary Care Unavailable DEBI, FARIBA Admitting Unavailable DEBI, FARIBA Attending Unavailable FURLONG, DR ZEN Reinoso Primary Care Unavailable LUCYER, DR RICHARD Sidhu Consulting Unavailable DEBI, FARIBA Consulting Unavailable DEBI, FARIBA Admitting Unavailable DEBI, FARIBA Attending Unavailable FURLONG, DR ZEN Reinoso Primary Care Unavailable FURLONG, DR ZEN Reinoso Primary Care Unavailable SCHUYLER, DR JAMES Reinoso Consulting Unavailabl e REINFREYA, DR JAMES Reinoso Admitting Unavailabl e REINFREYA, DR JAMES Reinoso Attending Unavailabl e FURLONG, DR ZEN Reinoso Primary Care Unavailable HAY, DR HARRELL Admitting Unavailable HAY, DR HARRELL Attending Unavailable KENDRA, DR HARRELL Consulting Unavailable RICHARD BRONSON Consulting Unavailable FURLOWILFREDO, DR ZEN Reinoso Primary Care Unavailable HAY, DR HARRELL Admitting Unavailable KENDRA, DR HARRELL Attending Unavailable KENDRA, DR HARRELL Consulting Unavailable JANETT HERNANDEZ Consulting Unavailable JOEL WILBURN Consulting Unavailable REMI, GIOVANNI Lambert Consulting Unavailable SLICKEREThea, DR BACILIO Farnsworth Attending Unavailable LICHA, DR BACILIO Farnsworth Admitting Unavailable FURLONG, DR ZEN Reinoso Primary Care Unavailable JEAN-PAUL, DR CHAYITO Sidhu Consulting Unavailable ALESSANDRO, DR HENRY Consulting Unavailable SLICKEREThea, DR BACILIO Farnsworth Consulting Unavailable CLOVIS, RADHA Nogueira Consulting Unavailable ANDRADE DIAL Consulting Unavailable ENRRIQUE GONCALVES Consulting Unavailable HIGHLANDER, RADHA Nogueira Procedure Practitioner UnaASH Bedoya Consulting Unavailable FURLONG, DR ZEN Reinoso Primary Care Unavailable FAWWAD, CAMPBELL H Admitting Unavailable FAWWAD, CAMPBELL H Attending Unavailable SHANKAR, DR ANN García Consulting Unavailable ZIEBER, DR RICHARD Sidhu Consulting Unavailable HIGHLANDERRADHA Consulting Unavailable FAFREDERIC, H Consulting Unavailable VAZQUEZ Kasia, GIAN LUJAN Consulting Unavailable SOLA STEVE Consulting Unavailable HERRERA NOLAN Consulting Unavailable FURLONG, DR ZEN Reinoso Primary Care Unavailable ALESSANDRO, DR HENRY Consulting Unavailable JEROMY, DR NAOMIE Dalton Admitting Unavailable PINZON, DR NAOMIE Dalton Attending Unavailable PINZON, DR NAOMIE Dalton Consulting Unavailable ZIEBER, DR RICHARD Sidhu Consulting Unavailable HIGHLANDER, RADHA Nogueira Consulting Unavailable GAYLESILVINA Anderson Consulting Unavailable AYYAGARIBRENDA Consulting Unavailable MCCRICHARD GUAMAN Consulting Unavailable MIKHAIL, DANNY Consulting Unavailable RADHA BRANNON Admitting Unavailable HIGHLCHRISTINA, RADHA Nogueira Attending Unavailable SANDRA, DR ZEN Reinoso Primary Care Unavailable HIGHLCHRISTINA, RADHA Nogueira Consulting Unavailable FURLONG, DR ZEN Reinoso Admitting Unavailable FURLONG, DR ZEN Reinoso Attending Unavailable FURLONG, DR ZEN Reinoso Primary Care Unavailable HIGHLANDER, RADHA Nogueira Admitting Unavailable HIGHLANDER, RADHA Nogueira Attending Unavailable FURJAZZYNG, DR ZEN Reinoso Primary Care Unavailable ZIEBER, DR RICHARD Sidhu Consulting Unavailable HIGHLANDER, RADHA Nogueira Consulting Unavailable FURLONG, DR ZEN Reinoso Primary Care Unavailable FAWWAD, CAMPBELL H Admitting Unavailable FAHANNAHD, CAMPBELL H Attending Unavailable SCHUYLER, DR JAMES Reinoso Consulting UnavailPADMINI Allison Consulting Unavailable NORA NARAYAN Consulting Unavailable FAWWAD, CAMPBELL H Consulting Unavailable SARAH SOLIS Consulting Unavailable ANN PEREA Consulting Unavailable MIKHAIL, DANNY Consulting Unavailable RADHA BRANNON Admitting Unavailable HIGHLCHRISTINA, RADHA Nogueira Attending Unavailable SANDRA, DR ZEN Reinoso Primary Care Unavailable RICHARD GAVIN Attending Unavailable Zen Flores DO Primary Care Provider DEMETRA PORTER Attending Unavailable ZEN FLORES Referring Unavailable ZEN FLORES Primary Care Unavailable SANDRA, ZEN Reinoso Attending Unavailable ZEN FLORES Referring Unavailable FURLONG, ZEN G Primary Care Unavailable FURLONG, ZEN G Attending Unavailable FURLONG, ZEN G Referring Unavailable FURLONG, ZEN G Primary Care Unavailable FURLONG, ZEN G Attending Unavailable FURLONG, ZEN G Referring Unavailable FURLONG, ZEN G Primary Care Unavailable FURLONG, ZEN G Attending Unavailable FURLONG, ZEN G Referring Unavailable FURLONG, ZEN G Primary Care Unavailable DEMETRA PORTER Referring Unavailable FURLONG, ZEN G Primary Care Unavailable FURLONG, ZEN G Referring Unavailable FURLONG, ZEN G Primary Care Unavailable FURLONG, ZEN G Referring Unavailable FURLONG, ZEN G Primary Care Unavailable FURLONG, ZEN G Referring Unavailable FURLONG, ZEN G Primary Care Unavailable Allergies Allergy Classification Reported Allergen(s) Allergy Type Date of Onset Reaction(s) Facility (1 source) Adhesive Tape Drug allergy (disorder) 0 [facility] (6 sources) Amino Acids; 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: [LISINOPRIL] Drug Allergy 0 [facility] (1 source) Bee/Wasp/Ant venom; 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: [Bee/Wasp Stings] Propensity to adverse reactions (disorder) 0 [facility] (5 sources) Codeine; 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: [CODEINE] Drug Allergy 0 [facility] (5 sources) Morphine; 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: [MORPHINE] Drug Allergy 0 [facility] (2 sources) bee venom Drug allergy (disorder) [facility] (3 sources) cilostazol; 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: [CILOSTAZOL] Drug Allergy 0 [facility] (2 sources) Desonide Drug Allergy [facility] (4 sources) HYDROmorphone; 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: [HYDROMORPHONE] Drug Allergy 0 [facility] (1 source) icosapent ethyl Drug Allergy [facility] (10 sources) Adhesive agent; 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: [ADHESIVE] Propensity to adverse reactions to drug 1 [facility] (10 sources) Bee pollen; 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: [BEE POLLEN] Drug Allergy 0 [facility] (8 sources) cilostazol Drug Allergy 0 [facility] (8 sources) Codeine Drug Allergy 0 [facility] (8 sources) HYDROmorphone Drug Allergy 0 [facility] (10 sources) icosapent ethyl; 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: [ICOSAPENT ETHYL] Drug Allergy 2 Dizziness [facility] (8 sources) Lisinopril Drug Allergy 0 [facility] (8 sources) Morphine Drug Allergy 0 [facility] (10 sources) Bee Venom Protein (Honey Bee); 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: [BEE VENOM PROTEIN (HONEY BEE)] Propensity to adverse reactions to drug 1 [facility] Medications Current Medications Medication Drug Class(es) Dates Sig (Normalized) Sig (Original) acetaminophen 325 mg / HYDROcodone bitartrate 7.5 mg oral tablet (15 sources) Opioid Agonist Start: 10-18-2023 End: 12-05-2023 take 1 tablet by mouth twice daily as needed for pain HYDROcodone-acetam inophen (NORCO) 7.5-325 mg per tablet Indications: Rheumatoid arthritis involving multiple sites, unspecified whether rheumatoid factor present ([facility]) Take 1 tablet by mouth 2 (two) times a day as needed for pain. 60 tablet 0 12/05/2023 Active Start: 08-30-2023 End: 10-16-2023 take 1 tablet by mouth twice daily as needed for pain HYDROcodone-acetaminophen (NORCO) 7.5-32 5 mg per tablet Indications: Compression fracture of L1 vertebra with routine healing, subsequent encounter Take 1 tablet by mouth 2 (two) times a day as needed for pain. 14 tablet 0 10/05/2023 10/16/2023 Discontinued (Reorder) HYDROcodone-Acet aminophen Active [id number] 200 actuat albuterol 0.09 mg/actuat metered dose inhaler (9 sources) beta2-Adrenergic Agonist Start: 07-27-2021 take 2 puff(s) by inhalation every four to six hours as needed Albuterol Sulfate HFA 108 (90 Base) MCG/ACT 2 puffs as needed Inhalation every 4-6 hours for 14 days Jul, Active take 2 puff(s) by in halation every six hours as needed albuterol (PROVENTIL HFA;VENTOLIN HFA) 9 0 mcg/actuation inhaler Inhale 2 puffs every 6 (six) hours as needed. 0 Active aspirin 81 mg oral tablet (8 sources) Platelet Aggregation Inhibitor, Nonsteroidal Anti-inflammatory Drug take 81 mg by mouth once daily BABY ASPIRIN ORAL Take 81 mg by mouth daily. 0 Active atenolol 50 mg oral tablet (9 sources) beta-Adrenergic Rakan Start: take 1 tablet by mouth in the morning atenoloL (TENORMIN) 50 mg tablet Take 1 tablet (50 mg total) by mouth in the morning. 90 tablet 1 06/17/2023 Active Atenolol Active atorvastatin 80 mg oral tablet (9 sources) HMG-CoA Reductase Inhibitor Start: 05-17-2023 take 1 tablet by mouth in the morning atorvastatin (LIPITOR) 80 mg tablet Take 1 tablet (80 mg total) by mouth in the morning. 100 tablet 3 05/17/2023 Active Atorvastatin Cali cium Active benzonatate 100 mg oral capsule (1 source) Non-narcotic Antitussive Start: 07-27-2021 take 1 capsule by mouth every eight hours Tessalon Perles 100 MG 1 capsule as needed Orally Three times a day for 7 days Jul, Active celecoxib 200 mg oral capsule (8 sources) Nonsteroidal Anti-inflammatory Drug Start: 08-18-2023 take 1 capsule by mouth in the morning, then take 1 capsule by mouth at bedtime celecoxib (CeleBREX) 200 mg capsule Take 1 capsule (200 mg total) by mouth in the morning and 1 capsule (200 mg total) before bedtime. 60 capsule 2 08/18/2023 Active cholecalciferol 0.125 mg oral tablet (8 sources) Vitamin D cholecalciferol, vitamin D3, 5,000 units tablet cholecalciferol (vitamin D3) 125 mcg (5,000 unit) tablet 0 Active cyclobenzaprine hydrochloride 10 mg oral tablet (8 sources) Muscle Relaxant Start: 06-06-2023 take 1 tablet by mouth every eight hours cyclobenzaprine (FLEXERIL) 10 mg tablet take 1 tablet by mouth every 8 hours if needed 90 tablet 1 06/06/2023 Active DULoxetine 30 mg delayed release oral capsule (17 sources) Serotonin and Norepinephrine Reuptake Inhibitor Start: 08-18-2023 take 1 capsule by mouth once daily in the morning DULoxetine (CYMBALTA) 30 mg capsule take 1 capsule by mouth every morning 90 capsule 1 08/18/2023 Active Start: 04-05-2023 take 1 capsule by mo uth in the morning DULoxetine (CYMBALTA) 60 mg capsule Take 1 capsule (60 mg total) by mouth in the morning. 90 capsule 1 04/05/2023 Active DULoxetine HCl A ctive Folic Acid (1 source) Folic Acid Activ e FreeStyle Tru 14 Day Senso r (1 source) FreeStyle Tru 14 Day Sensor Active insulin aspart protamine, hu man 70 unt/ml / insulin aspart, human 30 unt/ml injectable suspension (8 sources) Insulin Analog insulin asp prt- insulin aspart (NovoLOG 70/30) 100 unit/mL (70-30) injection Inject under the skin. 0 Active insulin aspart, human 100 un t/ml injectable solution (9 sources) Insulin Analog insulin aspart U -100 (NovoLOG) 100 unit/mL injection Novolog U-100 Insulin aspart 100 unit/mL subcutaneous solution 0 Active NovoLOG Active leflunomide (1 source) Antirheumatic Agent Leflunomide Active nitroglycerin 0.4 mg sublingual tablet (8 sources) Nitrate Vasodilator Start: 11-19-2022 nitroglycerin (NITROSTAT) 0.4 MG SL tablet Indications: Coronary arteriosclerosis 1 sublingually Q5 minutes prn chest pain 25 tablet 1 11/19/2022 Active pantoprazole 40 mg delayed release oral tablet (9 sources) Proton Pump Inhibitor pantoprazo le (PROTONIX) 40 mg EC tablet daily. 0 Active Pantoprazole Sod ium Active Problems Active Problems Problem Classification Problem Date Documented Da te Episodic/Chronic Acquired foot deformities (2 sources) Other hammer toe(s) (acquired), left foot; 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: [Hallux varus (acquired), unspecified foot] Onset: 05-19-2022 Chronic Anxiety disorders (18 sources) Anxiety disorder, unspecified; 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: [Other specified anxiety disorders] Onset: 08-16-2019 05-21-2022 Chronic Cardiac dysrhythmias (10 sources) Other specified cardiac arrhythmias; 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: [Unspecified atrial fibrillation] Onset: 07-17-2020 05-21-2022 Chronic Chronic kidney disease (1 source) Chronic kidney disease; 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: [CHRONIC KIDNEY DISEASE STAGE 3A] Onset: 03-22-2022 Chronic ulcer of skin (4 sources) Non-pressure chronic ulcer of left heel and midfoot with fat layer exposed; 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: [Non-pressure chronic ulcer of other part of left foot with fat layer exposed] Onset: 02-08-2022 Chronic Coronary atherosclerosis and other heart disease (17 sources) Atherosclerotic heart disease of [place] coronary artery without angina pectoris; 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: [Acute coronary syndrome] Onset: 08-16-2019 05-21-2022 Chronic Coronary atherosclerosis and other heart disease (2 sources) Presence of aortocoronary bypass graft; 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: [Presence of coronary angioplasty implant and graft] Onset: 03-22-2022 Episodic Diabetes mellitus with complications (20 sources) Type 2 diabetes mellitus with hypoglycemia without coma; 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: [Type 2 diabetes mellitus with foot ulcer] Onset: 01-08-2022 Chronic Diabetes mellitus without complication (9 sources) Type 2 diabetes mellitus without complications; 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: [Type 1 diabetes mellitus] Onset: 01-08-1965 05-21-2022 Chronic Diabetes mellitus without complication (1 source) Presence of insulin pump (external) (internal); 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: [PRESENCE INSULIN PUMP EXT INTERNAL] Onset: 10-19-2022 Episodic Disorders of lipid metabolism (12 sources) Pure hypercholesterolemia, unspecified; 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: [Hypertriglyceridemia ] Onset: 11-04-2020 05-21-2022 Chronic Esophageal disorders (9 sources) Gastro-esophageal reflux disease without esophagitis; 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: [Gastroesophageal reflux disease] Onset: 08-18-2019 05-21-2022 Chronic Essential hypertension (11 sources) Essential (primary) hypertension; 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: [Hypertensive disorder] Onset: 08-16-2019 05-21-2022 Chronic Genitourinary symptoms and ill-defined conditions (8 sources) Urge incontinence of urine; 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: [Urge incontinence] Onset: 04-01-2023 04-01-2023 Chronic Headache; including migraine (8 sources) Migraine; 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: [Migraine, unspecified, not intractable, without status migrainosus] Onset: 08-16-2019 05-21-2022 Chronic Hypertension with complications and secondary hypertension (1 source) Hypertensive chronic kidney disease with stage 1 through stage 4 chronic kidney disease, or unspecified chronic kidney disease; 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: [HTN CKD W/STAGE 1-4 CKD/UNS CKD] Onset: 03-22-2022 Chronic Immunity disorders (8 sources) Sarcoidosis; 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: [Sarcoidosis, unspecified] Onset: 05-21-2022 05-21-2022 Chronic Immunizations and screening for infectious disease (2 sources) Contact with and (suspected) exposure to other viral communicable diseases; 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: [Encounter for immunization] Onset: 07-27-2021 Resolved: 07-27-2021 Episodic Infective arthritis and osteomyelitis (except that caused by tuberculosis or sexually transmitted disease) (1 source) Other osteomyelitis, unspecified sites; 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: [OTHER OSTEOMYELITIS UNS SITES] Onset: 04-20-2022 Chronic Intracranial injury (1 source) Concussion without loss of consciousness, initial encounter; 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: [Concussion without loss of consciousness, initial encounter] Onset: 02-09-2024 Episodic Malaise and fatigue (3 sources) Weakness; 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: [Other fatigue] Onset: 08-18-2022 Episodic Mood disorders (11 sources) Major depressive disorder, single episode, unspecified; 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: [Severe depression] Onset: 08-16-2019 04-01-2023 Chronic Nausea and vomiting (1 source) Vomiting, unspecified; 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: [VOMITING UNSPECIFIED] Onset: 08-18-2022 Episodic Osteoarthritis (13 sources) Unspecified osteoarthritis, unspecified site; 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: [Primary osteoarthritis, right ankle and foot] Onset: 05-13-2022 Chronic Osteoporosis (9 sources) Age-related osteoporosis without current pathological fracture; 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: [Senile osteoporosis] Onset: 09-18-2019 09-18-2019 Chronic Other acquired deformities (1 source) Contracture, left ankle; 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: [CONTRACTURE LEFT ANKLE] Onset: 03-22-2022 Chronic Other aftercare (1 source) 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; 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: [MANA[employer] 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 INSULIN] Onset: 10-19-2022 Episodic Other aftercare (1 source) Other halfway (current) drug therapy; 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: [OTH DETENTION CURRENT DRUG THERAPY] Onset: 10-19-2022 Episodic Other aftercare (1 source) senior care (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 aspirin; 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: [MANA[employer] 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 ASPIRIN] Onset: 08-18-2022 Episodic Other aftercare (2 sources) Encounter for therapeutic drug level monitoring; 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: [Encounter for therapeutic drug level monitoring] Onset: 03-26-2024 Episodic Other bone disease and musculoskeletal deformities (2 sources) History of amputation of left foot; 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: [Acquired absence of left foot] Onset: 12-05-2023 12-05-2023 Chronic Other bone disease and musculoskeletal deformities (1 source) Acquired absence of left foot; 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: [Acquired absence of left foot] Onset: 12-05-2023 Chronic Other fractures (14 sources) Compression fracture of lumbar spine; 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: [Wedge compression fracture of first lumbar vertebra, subsequent encounter for fracture with routine healing] Onset: 09-29-2020 09-12-2023 Episodic Other gastrointestinal disorders (1 source) Diarrhea, unspecified; 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: [DIARRHEA UNSPECIFIED] Onset: 08-18-2022 Episodic Other lower respiratory disease (1 source) Personal history of pneumonia (recurrent); 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: [PERSONAL HX OF PNEUMONIA RECURRENT] Onset: 08-18-2022 Episodic Peripheral and visceral atherosclerosis (11 sources) Peripheral vascular disease, unspecified; 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: [Peripheral vascular disease, unspecified] Onset: 01-28-2022 11-19-2022 Chronic Residual codes; unclassified (3 sources) Transient alteration of awareness; 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: [TRANSIENT ALTERATION OF AWARENESS] Onset: 10-17-2022 Episodic Residual codes; unclassified (1 source) Acquired absence of other specified parts of digestive tract; 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: [ACQ ABSENCE OTH PART DIGESTV TRACT] Onset: 08-18-2022 Episodic Rheumatoid arthritis and related disease (13 sources) Rheumatoid arthritis, unspecified; 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: [Rheumatoid nodule, right ankle and foot] Onset: 08-16-2019 05-21-2022 Chronic Screening and history of mental health and substance abuse codes (1 source) Personal history of nicotine dependence; 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: [PERSONAL HISTORY OF NICOTINE DEPEND] Onset: 10-19-2022 Episodic Septicemia (except in labor) (5 sources) Sepsis, unspecified organism; 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: [Sepsis due to Enterococcus] Onset: 03-22-2022 Episodic Sprains and strains (2 sources) Strain of muscle, fascia and tendon at neck level, initial encounter; 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: [Strain of unspecified muscle, fascia and tendon at shoulder and upper arm level, right arm, initial encounter] Onset: 02-09-2024 Episodic Substance-related disorders (1 source) Other psychoactive substance dependence with withdrawal, unspecified; 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: [OTH PSYCHOACTV DEPEND W/D UNSPEC] Onset: 08-18-2022 Chronic Unclassified (1 source) CONTACT W/AND (SUSP) EXPOS COVID-19; 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: [CONTACT W/AND (SUSP) EXPOS COVID-19] Onset: 08-18-2022 Unclassified (1 source) PERSONAL HISTORY OF COVID-19; 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: [PERSONAL HISTORY OF COVID-19] Onset: 08-18-2022 Unclassified (1 source) ACIDOSIS UNSPECIFIED; 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: [ACIDOSIS UNSPECIFIED] Onset: 08-18-2022 Unclassified (1 source) controlled sub Onset: 12-05-2023 Urinary tract infections (1 source) Urinary tract infection, site not specified; 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: [UTI SITE NOT SPECIFIED] Onset: 08-18-2022 Episodic Past or Other Problems Problem Classification Problem Date Documented Da te Episodic/Chronic Abdominal pain (4 sources) Unspecified abdominal pain; 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: [UNSPECIFIED ABDOMINAL PAIN] Onset: 11-03-2021 Episodic Acquired foot deformities (1 source) Other acquired deformities of left foot; 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: [OTHER ACQUIRED DEFORMITIES LT FOOT] Onset: 05-31-2022 Episodic Acquired foot deformities (1 source) Other acquired deformities of right foot; 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: [OTHER ACQUIRED DEFORMITIES RT FOOT] Onset: 05-31-2022 Episodic Acute 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 renal failure (1 source) Acute kidney failure, unspecified; 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: [ACUTE KIDNEY FAILURE UNSPECIFIED] Onset: 03-22-2022 Episodic Cardiac dysrhythmias (1 source) Tachycardia, unspecified; 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: [TACHYCARDIA UNSPECIFIED] Onset: 05-04-2022 Episodic Complications of surgical procedures or medical care (5 sources) Other complications of procedures, not elsewhere classified, initial encounter; 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: [OT COMPLICATIONS PROC NEC INITIAL] Onset: 03-18-2022 Episodic E Codes: Fall (1 source) Unspecified fall, initial encounter; 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: [UNSPECIFIED FALL INITIAL ENCOUNTER] Onset: 05-20-2022 Episodic Fluid and electrolyte disorders (1 source) Dehydration; 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: [DEHYDRATION] Onset: 11-05-2021 Episodic Genitourinary symptoms and ill-defined conditions (3 sources) Dysuria; 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: [Proteinuria, unspecified] Onset: 05-21-2022 Episodic Mood disorders (9 sources) Mood disorders; 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: [DEPRESSION UNSPECIFIED] Onset: 07-12-2023 Resolved: 12-05-2023 07-12-2023 Nonspecific chest pain (4 sources) Chest pain, unspecified; 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: [Other chest pain] Onset: 04-30-2022 Episodic Open wounds of extremities (4 sources) Puncture wound without foreign body, left foot, initial encounter; 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: [PUNCT WOUND W/O FB LT FOOT INITIAL] Onset: 10-27-2021 Episodic Other bone disease and musculoskeletal deformities (1 source) Acquired absence of other right toe(s); 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: [ACQUIRED ABSENCE OTHER RIGHT TOES] Onset: 01-08-2022 Episodic Other circulatory disease (4 sources) Other specified symptoms and signs involving the circulatory and respiratory systems; 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: [OTH SPEC SX SIGNS INVLV CIRC RS] Onset: 02-18-2022 Episodic Other connective tissue disease (4 sources) Pain in right foot; 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: [PAIN IN RIGHT FOOT] Onset: 06-15-2022 Episodic Other connective tissue disease (4 sources) Other specified soft tissue disorders; 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: [OTHER SPEC SOFT TISSUE DISORDERS] Onset: 05-31-2022 Episodic Other connective tissue disease (1 source) Plantar fascial fibromatosis; 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: [PLANTAR FASCIAL FIBROMATOSIS] Onset: 04-20-2022 Episodic Other connective tissue disease (1 source) Bursopathy, unspecified; 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: [BURSOPATHY UNSPECIFIED] Onset: 03-22-2022 Episodic Other connective tissue disease (1 source) Pain in left foot; 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: [PAIN IN LEFT FOOT] Onset: 01-08-2022 Episodic Other connective tissue disease (8 sources) Primary fibromyalgia syndrome; 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: [Fibromyalgia] Onset: 08-16-2019 05-21-2022 Episodic Other fractures (1 source) Wedge compression fracture of first lumbar vertebra, sequela; 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: [Wedge compression fracture of first lumbar vertebra, sequela] Onset: 05-21-2022 Episodic Other fractures (1 source) Wedge compression fracture of first lumbar vertebra, subsequent encounter for fracture with routine healing; 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: [Wedge compression fracture of first lumbar vertebra, subsequent encounter for fracture with routine healing] Onset: 05-21-2022 Episodic Other gastrointestinal disorders (1 source) Constipation, unspecified; 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: [CONSTIPATION UNSPECIFIED] Onset: 11-05-2021 Episodic Other injuries and conditions due to external causes (4 sources) Unspecified injury of head, initial encounter; 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: [UNSPECIFIED INJURY HEAD INITIAL ENC] Onset: 05-19-2022 Episodic Other lower respiratory disease (1 source) Shortness of breath; 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: [SHORTNESS OF BREATH] Onset: 05-04-2022 Episodic Other non-traumatic joint disorders (1 source) Osteophyte, right foot; 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: [OSTEOPHYTE RIGHT FOOT] Onset: 06-15-2022 Episodic Other non-traumatic joint disorders (1 source) Other specified joint disorders, left ankle and foot; 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: [OTHER SPEC JOINT D/O LT ANKLE FOOT] Onset: 03-22-2022 Episodic Other nutritional; endocrine; and metabolic disorders (8 sources) Overweight; 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: [Overweight] Onset: 04-01-2023 04-01-2023 Episodic Other nutritional; endocrine; and metabolic disorders (1 source) Overweight; 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: [Overweight] Onset: 04-01-2023 Episodic Other screening for suspected conditions (not mental disorders or infectious disease) (1 source) Other specified abnormal findings of blood chemistry; 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: [OTH SPEC ABNORMAL FINDINGS BLD CHEM] Onset: 03-22-2022 Episodic Other skin disorders (1 source) Localized swelling, mass and lump, left lower limb; 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: [LOC SWELL MASS LUMP LT LOWER LIMB] Onset: 10-28-2021 Episodic Pathological fracture (8 sources) Pathological fracture due to osteoporosis; 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: [Other osteoporosis with current pathological fracture, unspecified site, initial encounter for fracture] Onset: 07-17-2020 05-21-2022 Episodic Phlebitis; thrombophlebitis and thromboembolism (10 sources) Personal history of other venous thrombosis and embolism; 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: [Acute embolism and thrombosis of unspecified deep veins of right distal lower extremity] Onset: 08-16-2019 05-21-2022 Episodic Pneumonia (except that caused by tuberculosis or sexually transmitted disease) (3 sources) Pneumonia, unspecified organism; 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: [PNEUMONIA UNSPECIFIED ORGANISM] Onset: 03-13-2022 Episodic Respiratory failure; insufficiency; arrest (adult) (1 source) Acute respiratory failure with hypoxia; 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: [ACUTE RESPIRATORY FAIL W/HYPOXIA] Onset: 03-22-2022 Episodic Superficial injury; contusion (1 source) Contusion of right hip, initial encounter; 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: [CONTUSION RIGHT HIP INITIAL ENC] Onset: 05-20-2022 Episodic Viral infection (1 source) COVID-19 Onset: 07-27-2021 Resolved: 07-27-2021 Results Test Name Value Interpretation Reference Range Facility BASIC METABOLIC PANLon 04-13 Anion gap [Moles/Vol] 10 mmol/L Normal 5-15 [facility] Comment on above: Performed By: #### B MP #### [facility] ([id number]) [address] [address] [place] [address] Calcium [Mass/Vol] 9.9 mg/dL Normal 8.5-10.5 [facility] Comment on above: Performed By: #### B MP #### [facility] ([id number]) [address] [address] [place] [address] Chloride [Moles/Vol] 100 mmol/L Normal 98-109 [facility] Comment on above: Performed By: #### B MP #### [facility] ([id number]) [address], [address] [place] [address] CO2 [Moles/Vol] 27 mmol/L Normal 22-32 [facility] Comment on above: Performed By: #### B MP #### [facility] ([id number]) [address], [address] [place] [address] Creatinine [Mass/Vol] 0.92 mg/dL Normal 0.40-1.00 [facility] Comment on above: Result Comment: METH OD TRACEABLE TO IDMS STANDARD Performed By: #### B MP #### [facility] ([id number]) [address], [address] [place] [address] GFR/1.73 sq M.predicted among non-blacks MDRD (S/P/Bld) [Vol rate/Area] 70 mL/min/{1.73_m2} Normal >59 [facility] Comment on above: Result Comment: Reported eGFR is based on the CKD-EPI 2020 equation that does not use a race coefficient. Performed By: #### B MP #### [facility] ([id number]) [address], [address] [place] [address] Glucose [Mass/Vol] 151 mg/dL High 65-99 [facility] Comment on above: Performed By: #### B MP #### [facility] ([id number]) [address], [address] [place] [address] Potassium [Moles/Vol] 4.5 mmol/L Normal 3.5-5.0 [facility] Comment on above: Performed By: #### B MP #### [facility] ([id number]) [address], [address] [place] [address] Sodium [Moles/Vol] 137 mmol/L Normal 134-146 [facility] Comment on above: Performed By: #### B MP #### [facility] ([id number]) [address], [address] [place] [address] Urea nitrogen [Mass/Vol] 28 mg/dL High 5-27 [facility] Comment on above: Performed By: #### B MP #### [facility] ([id number]) [address], [address] [place] [address] DRUG SCREEN, URINEon 024 AMPHETAMINE/METHAMP Negative Normal NEG [facility] Comment on above: Result Comment: AMPH /METH screening cut off = 1000 ng/mL Performed By: #### SELENA STINSON #### [facility] ([id number]) [address], [address] [place] [address] BARBITURATES Negative Normal NEG [facility] Comment on above: Result Comment: Juana iturates screening cut off value = 200 ng/mL Performed By: #### SELENA STINSON #### [facility] ([id number]) [address] [place] [address] BENZODIAZEPINES Negative Normal NEG [facility] Comment on above: Result Comment: Wade odiazepines screening cut off value = 200 ng/mL Performed By: #### Jero DECKER SELENA #### [facility] ([id number]) [address] [place] [address] CANNABINOIDS Negative Normal NEG [facility] Comment on above: Result Comment: Venus abinoids/THC screening cut off value = 50 ng/mL Performed By: #### Jero DECKER FINESSEDRAGAN #### [facility] ([id number]) [address] [place] [address] COCAINE METABOLITE Negative Normal NEG [facility] Comment on above: Result Comment: Coca ine screening cut off value = 300 ng/mL Performed By: #### Jero DECKER FINESSEDRAGAN #### [facility] ([id number]) [address] [place] [address] ECSTASY Negative Normal [facility] Comment on above: Result Comment: Ecst asy screening cut off value = 500 ng/mL This report is intended for use in clinical monitoring or management of patients. Performed By: #### Jero DECKER FINESSEDRAGAN #### [facility] ([id number]) [address] [place] [address] METHADONE Negative Normal NEG [facility] Comment on above: Result Comment: Meth adone screening cut off value = 300 ng/mL. Performed By: #### Jero DECKER FINESSEDRAGAN #### [facility] ([id number]) [address], [address] [place] [address] OPIATES Negative Normal NEG [facility] Comment on above: Result Comment: Opia rafal screening cut off value = 300 ng/mL NOTE: This test is used for the detection of codeine, hydrocodone (>1000 ng/mL), morphine and hydromorphone (>900 ng/mL) in urine. Performed By: #### Jero DECKER FINESSEDRAGAN #### [facility] ([id number]) [address], [address] [place] [address] OXYCODONE Negative Normal NEG [facility] Comment on above: Result Comment: Oxyc odone screening cut off value = 300 ng/mL NOTE: This test is used for the detection of oxycodone and oxymorphone in urine. Performed By: #### Jero DECKER FINESSEDRAGAN #### [facility] ([id number]) [address], [address] [place] [address] PHENCYCLIDINE Negative Normal NEG [facility] Comment on above: Result Comment: Phen cyclidine screening cut off value = 25 ng/mL Performed By: #### Jero DECKER FINESSEDRAGAN #### [facility] ([id number]) [address], [address] [place] [address] MICROALBUMIN - ALBUMIN:CREAT ININE URINE RATIOon 03-27-2024 ALB/CREAT RATIO 37.7 mg/g creat High 0.0-30.0 [facility] Comment on above: Performed By: #### SELENA STINSON #### [facility] ([id number]) [address], [address] [place] [address] Albumin DL <= 20 mg/L (U) [Mass/Vol] 2.0 mg/dL High 0.0-1.9 [facility] Comment on above: Performed By: #### Jero DECKER FINESSEDRAGAN #### [facility] ([id number]) [address] [place] [address] URINE CREAT 53.06 mg/dL Normal [facility] Comment on above: Performed By: #### Jero DECKER FINESSEDRAGAN #### [facility] ([id number]) [address] [place] [address] COMPLETE BLOOD COUNTon 03-26 Erythrocyte distribution width (RBC) [Ratio] 14.4 % Normal 11.5-15.0 [facility] Comment on above: Performed By: #### C SHEEBA, CMP #### [facility] ([id number]) [address], [address] [place] [address] Hematocrit (Bld) [Volume fraction] 40.1 % Normal 35-47 [facility] Comment on above: Performed By: #### C SHEEBA, CMP #### [facility] ([id number]) [address], [address] [place] [address] Hemoglobin (Bld) [Mass/Vol] 13.5 g/dL Normal 11.7-15.5 [facility] Comment on above: Performed By: #### C SHEEBA, CMP #### [facility] ([id number]) [address], [address] [place] [address] MCH (RBC) [Entitic mass] 30.8 pg Normal 27-34 [facility] Comment on above: Performed By: #### C SHEEBA, CMP #### [facility] ([id number]) [address], [address] [place] [address] MCHC (RBC) [Mass/Vol] 33.7 g/dL Normal 32-36 [facility] Comment on above: Performed By: #### C SHEEBA, CMP #### [facility] ([id number]) [address], [address] [place] [address] MCV (RBC) [Entitic vol] 91 fL Normal 80-100 [facility] Comment on above: Performed By: #### C SHEEBA, CMP #### [facility] ([id number]) [address] [place] [address] Platelet mean volume (Bld) [Entitic vol] 9.8 fL Normal 7-12 [facility] Comment on above: Performed By: #### C SHEEBA, CMP #### [facility] ([id number]) [address], [address] [place] [address] Platelets (Bld) [#/Vol] 308 10*3/uL Normal 150-450 [facility] Comment on above: Performed By: #### C SHEEBA, CMP #### [facility] ([id number]) [address] [place] [address] RBC COUNT 4.39 X10E12/L Normal 3.80-5.20 [facility] Comment on above: Performed By: #### C SHEEBA, CMP #### [facility] ([id number]) [address] [place] [address] WBC (Bld) [#/Vol] 10.1 10*3/uL Normal 4.0-11.0 [facility] Comment on above: Performed By: #### C SHEEBA, CMP #### [facility] ([id number]) [address] [place] [address] COMPREHENSIVE METABOLIC PANE Neftali 03-26-2024 Albumin [Mass/Vol] 3.8 g/dL Normal 3.2-5.3 [facility] Comment on above: Performed By: #### C SHEEBA, CMP #### [facility] ([id number]) [address], [address] [place] [address] ALP [Catalytic activity/Vol] 133 U/L High 39-130 [facility] Comment on above: Performed By: #### C SHEEBA, CMP #### [facility] ([id number]) [address], [address] [place] [address] ALT [Catalytic activity/Vol] 22 U/L Normal 0-31 [facility] Comment on above: Performed By: #### C BC, CMP #### [facility] ([id number]) [address], [address] [place] [address] Anion gap [Moles/Vol] 7 mmol/L Normal 5-15 [facility] Comment on above: Performed By: #### C SHEEBA, CMP #### [facility] ([id number]) [address], [address] [place] [address] AST [Catalytic activity/Vol] 24 U/L Normal 0-41 [facility] Comment on above: Performed By: #### C BC, CMP #### [facility] ([id number]) [address] [place] [address] Bilirubin [Mass/Vol] 0.4 mg/dL Normal 0.3-1.2 [facility] Comment on above: Performed By: #### C SHEEBA, CMP #### [facility] ([id number]) [address], [address] [place] [address] Calcium [Mass/Vol] 9.6 mg/dL Normal 8.5-10.5 [facility] Comment on above: Performed By: #### C SHEEBA, CMP #### [facility] ([id number]) [address] [place] [address] Chloride [Moles/Vol] 102 mmol/L Normal 98-109 [facility] Comment on above: Performed By: #### C SHEEBA, CMP #### [facility] ([id number]) [address], [address] [place] [address] CO2 [Moles/Vol] 28 mmol/L Normal 22-32 [facility] Comment on above: Performed By: #### C SHEEBA, CMP #### [facility] ([id number]) [address], [address] [place] [address] Creatinine [Mass/Vol] 0.96 mg/dL Normal 0.40-1.00 [facility] Comment on above: Result Comment: METH OD TRACEABLE TO IDMS STANDARD Performed By: #### C SHEEBA, CMP #### [facility] ([id number]) [address] [place] [address] GFR/1.73 sq M.predicted among non-blacks MDRD (S/P/Bld) [Vol rate/Area] 66 mL/min/{1.73_m2} Normal >59 [facility] Comment on above: Result Comment: Reported eGFR is based on the CKD-EPI 2020 equation that does not use a race coefficient. Performed By: #### C BC, CMP #### [facility] ([id number]) [address] [place] [address] Glucose [Mass/Vol] 179 mg/dL High 65-99 [facility] Comment on above: Performed By: #### C BC, CMP #### [facility] ([id number]) [address] [address] [place] [address] Potassium [Moles/Vol] 5.1 mmol/L High 3.5-5.0 [facility] Comment on above: Performed By: #### C BC, CMP #### [facility] ([id number]) [address] [address] [place] [address] Protein [Mass/Vol] 7.2 g/dL Normal 6.0-8.0 [facility] Comment on above: Performed By: #### C BC, CMP #### [facility] ([id number]) [address] [address] [place] [address] Sodium [Moles/Vol] 137 mmol/L Normal 134-146 [facility] Comment on above: Performed By: #### C BC, CMP #### [facility] ([id number]) [address] [address] [place] [address] Urea nitrogen [Mass/Vol] 23 mg/dL Normal 5-27 [facility] Comment on above: Performed By: #### C BC, CMP #### [facility] ([id number]) [address] [address] [place] [address] Lipid 1996 panelon 04-01-202 4 Cholesterol [Mass/Vol] 106 mg/dL Low 150 - 200 mg/dL [facility] Cholesterol in HDL [Mass/Vol] 46 mg/dL 39 - PINF mg/dL [facility] Comment on above: HDL <40 mg/dL - High Risk HDL > or = 40mg/dL- Desirable HDL >60 mg/dL - Negative Risk Cholesterol in LDL [Mass/Vol] 38 mg/dL NINF - 130 mg/dL [facility] Comment on above: LDL <100 mg/dL - Desirable LDL >160 mg/dL - High Risk Cholesterol in VLDL [Mass/Vol] 22 mg/dL 0 - 30 mg/dL [facility] Cholesterol.total/Cho lesterol in HDL [Mass ratio] 2.3 {ratio} 1.0 - 5.0 [facility] Interpretation and review of laboratory results Abnormal [facility] Triglyceride [Mass/Vol] 110 mg/dL 27 - 150 mg/dL [facility] Cholesterol [Mass/Vol] 106 mg/dL Low 150-200 [facility] Comment on above: Performed By: #### 2 4331-1, 3016-3 #### [facility] ([id number]) [address] [address] [place] [address] Cholesterol in HDL [Mass/Vol] 46 mg/dL Normal >39 [facility] Comment on above: Result Comment: HDL <40 mg/dL - High Risk HDL > or = 40mg/dL- Desirable HDL >60 mg/dL - Negative Risk Performed By: #### 2 4331-1, 3015-3 #### [facility] ([id number]) [address] [place] [address] Cholesterol in LDL [Mass/Vol] 38 mg/dL Normal <130 [facility] Comment on above: Result Comment: LDL <100 mg/dL - Desirable LDL >160 mg/dL - High Risk Performed By: #### 2 4331-1, 3015-3 #### [facility] ([id number]) [address] [place] [address] Cholesterol in VLDL [Mass/Vol] 22 mg/dL Normal 0-30 [facility] Comment on above: Performed By: #### 2 4331-1, 3015-3 #### [facility] ([id number]) [address] [place] [address] CHOLESTEROL:HDL 2.3 Normal 1.0-5.0 [facility] Comment on above: Performed By: #### 2 4331-1, 3015-3 #### [facility] ([id number]) [address], [address] [place] [address] Triglyceride [Mass/Vol] 110 mg/dL Normal 27-150 [facility] Comment on above: Performed By: #### 2 4331-1, 3015-3 #### [facility] ([id number]) [address] [place] [address] TSHon 12-05-2023 TSH Qn 3.00 m[IU]/L [facility] TSH Qnon 12-05-2023 [facility] TSH 3.00 uIU/mL Normal 0.49-4.67 [facility] Comment on above: Performed By: #### 2 4331-1, 3015-3 #### [facility] ([id number]) [address] [facility] [place] [address] POINT OF CARE GLUCOSEon 10-06 Glucose [Mass/Vol] 252 mg/dL Critically high 74-106 [facility] Comment on above: Performed By: #### P OCGLUC ####[facility] [address] [place] [address]Dr. Abiel Clement PROF CHEM 8 (BAS METB)on Anion gap [Moles/Vol] 11.5 mmol/L Normal [facility] Comment on above: Performed By: #### B MP ####[facility] [address] [place], [place] [address]Dr. Abiel Clement Calcium [Mass/Vol] 9.6 mg/dL Normal 8.5-10.1 [facility] Comment on above: Performed By: #### B MP ####[facility] [address] [place], [place] [address]Dr. Abiel Clement Chloride [Moles/Vol] 102 mmol/L Normal 98-107 [facility] Comment on above: Performed By: #### B MP ####[facility] [address] [place], [place] [address]Dr. Abiel Clement CO2 [Moles/Vol] 30.8 mmol/L Normal 21.0-32.0 [facility] Comment on above: Performed By: #### B MP ####[facility] [address] [place], [place] [address]DrKasia Clement Creatinine [Mass/Vol] 0.72 mg/dL Normal 0.55-1.02 [facility] Comment on above: Performed By: #### B MP ####[facility] [address] [place] [address]Dr. Abiel Clement EGFR-AF JORDANIAN >60 Normal >=60 [facility] Comment on above: Performed By: #### B MP ####[facility] [address] [place] [address]Dr. bAiel Clement EGFR-NON AF JORDANIAN >60 Normal >=60 [facility] Comment on above: Performed By: #### B MP ####[facility] [address] [place] [id number]. Abiel Clement Glucose [Mass/Vol] 127 mg/dL Critically high 74-106 [facility] Comment on above: Performed By: #### B MP ####[facility] [address] [place] [id number]. Abiel Clement Potassium [Moles/Vol] 4.3 mmol/L Normal 3.5-5.1 [facility] Comment on above: Performed By: #### B MP ####[facility] [address] [place] [address]Dr. Abiel Clement Sodium [Moles/Vol] 140 mmol/L Normal 136-145 [facility] Comment on above: Performed By: #### B MP ####[facility] [address] [place] [address]Dr. Abiel Clement Urea nitrogen [Mass/Vol] 17.0 mg/dL Normal 7.0-18.0 [facility] Comment on above: Performed By: #### B MP ####[facility] [address] [place], [place] [address]Dr. Abiel Clement Urea nitrogen/Creatinine [Mass ratio] 23.6 mg/mg Normal [facility] Comment on above: Performed By: #### B MP ####[facility] [address] [place] [address]Dr. Abiel Clement CULTURE URINEon 08-07-2022 CULTURE URINE Normal [facility] Comment on above: Performed By: #### U RCX ####[facility] [address] [place] [address]Dr. Abiel Clement CBC W MANUAL DIFFon 08-05-20 22 ANISOCYTOSIS SLIGHT Normal [facility] Comment on above: Performed By: #### C ALVINO ####[facility] [address] [place] [id number]. Abiel Clement ATYPICAL LYMPH # Normal [facility] Comment on above: Performed By: #### C ALVINO ####[facility] [address] [place] [id number]. Abiel Clement ATYPICAL LYMPH % Normal [facility] Comment on above: Performed By: #### C BCMAN ####[facility] [address] [place] [id number]. Abiel Clement BAND # 0.6 103/ul Critically high 0.0-0.3 [facility] Comment on above: Performed By: #### C BCMAN ####[facility] [address] [place] [address]Dr. Yilan Clement BAND % 3 % Normal 0-5 [facility] Comment on above: Performed By: #### C ALVINO ####[facility] [address] [place] [address]Dr. Abiel Clement BASOM # 0.00 103/ul Normal 0.00-0.10 [facility] Comment on above: Performed By: #### C ALVINO ####[facility] [address] [place] [address]Dr. Abiel Clement BASOM % 0.0 % Critically low 0.2-2.[address] [facility] Comment on above: Performed By: #### C ALVINO ####[facility] [address] [place] [address]Dr. Abiel Clement BLAST # Normal [facility] Comment on above: Performed By: #### C ALVINO ####[facility] [address] [place] [address]Dr. Abiel Clement BLAST % Normal [facility] Comment on above: Performed By: #### C BCALLY ####[facility] [address]udkrtshok[address] [place] [address]Dr. Abiel Clement CORRECTED WBC Normal 4.0-11.0 [facility] Comment on above: Performed By: #### C ALVINO ####[facility] Aeosmutkbp27[address] [place] [address]Dr. Abiel Clement EOS # 0.00 103/ul Normal 0.00-0.70 [facility] Comment on above: Performed By: #### C BCALLY ####[facility] Srehzbyone65[address] [place], [place] [address]Hd. Abiel Clement EOS% 0.0 % Critically low 0.9-7.[address] [facility] Comment on above: Performed By: #### C ALVINO ####[facility] Zmzlpgdngd6867 [place], [place] [address]Ou. Abiel Clement HCT 34.0 % Critically low 36.0-48.[address] [facility] Comment on above: Performed By: #### C ALVINO ####[facility] Doerkpnaks0981 [place], [place] [address]Ni. Abiel Clement HGB 10.8 g/dl Critically low 12.0-16.[address] [facility] Comment on above: Performed By: #### C ALVINO ####[facility] Mdkawippzd3658 [place] [id number]. Abiel Clement LYMPHM # 0.61 103/ul Critically low 1.20-3.80 [facility] Comment on above: Performed By: #### Sheila DE OLIVEIRA ####[facility] Gbzxkozxgd3541 [place] [id number]. Abiel Clement LYMPHM% 3.0 % Critically low 20.5-60.[address] [facility] Comment on above: Performed By: #### Sheila DE OLIVEIRA ####[facility] Bjqhvxalgd2522 [place] [id number]. Abiel Clement MCH 27.3 pg Normal 26.7-34.0 [facility] Comment on above: Performed By: #### Sheila DE OLIVEIRA ####[facility] Itpnvevdud9793 [place], [place] [address]Hl. Abiel Clement MCHC 31.8 g/dl Normal 29.9-35.2 [facility] Comment on above: Performed By: #### C ALVINO ####[facility] Flppjrqmmv[address] [place] [id number]. Abiel Clement MCV 85.9 fL Normal 81.0-99.0 [facility] Comment on above: Performed By: #### Sheila DE OLIVEIRA ####[facility] Gwzukrqrwc4724 [place] [id number]. Abiel Clement METAMYELOCYTE # Normal [facility] Comment on above: Performed By: #### C ALVINO ####[facility] Spegotliab8551 [place] [address]Dr. Abiel Clement METAMYELOCYTE % Normal [facility] Comment on above: Performed By: #### C ALVINO ####[facility] Hkfvnpdgqa8058 [place] [id number]. Abiel Clement MONOM# 1.01 103/ul Critically high 0.30-0.80 [facility] Comment on above: Performed By: #### C ALVINO ####[facility] Wmlgubzaoa5938 [place] [address]Dr. Abiel Clement MONOM% 5.0 % Normal 1.7-12.0 [facility] Comment on above: Performed By: #### C ALVINO ####[facility] Aafnipcpak[address]1 [place] [address]Dr. Abiel Urbano MPV 11.1 fL Normal 9.5-13.5 [facility] Comment on above: Performed By: #### C ALVINO ####[facility] Bkrsepuoni28[address] [place] [address]Dr. Abiel Clement MYELOCYTE # Normal [facility] Comment on above: Performed By: #### C ALVINO ####[facility] Lmnwpjybmz1024 [place] [id number]. Abiel Clement MYELOCYTE % Normal [facility] Comment on above: Performed By: #### C ALVINO ####[facility] Gowdffploq9508 [place] [id number]. Abiel Clement NRBC Normal [facility] Comment on above: Performed By: #### C ALVINO ####[facility] Endmkjqwhv[address] [place], [place] [address]Dr. Aibel Clement PLT 283 103/ul Normal 150-450 [facility] Comment on above: Performed By: #### C ALVINO ####[facility] Kykplaslta8029 [place] [id number]. Suyapaviviana Urbano RBC 3.96 106/ul Critically low 4.20-5.40 [facility] Comment on above: Performed By: #### C ALVINO ####[facility] Tmddyzjjbl5277 [place] [address]Dr. Abiel Clemetn RDW 15.4 % Critically high 11.0-15.0 [facility] Comment on above: Performed By: #### C ALVINO ####[facility] Syzepfczkl0936 [place] [address]Dr. Suyapaviviana Urbano SEG # 18.07 103/ul Critically high 1.40-6.50 [facility] Comment on above: Performed By: #### C ALVINO ####[facility] Lcokgznzim8157 [place] [address]Dr. Suyapaviviana Urbano SEG % 89.0 % Critically high 43.0-75.0 [facility] Comment on above: Performed By: #### C ALVINO ####[facility] Zggecldzsy[address] [place], [place] [address]Dr. Abiel Clement WBC 20.3 103/ul Critically high 4.0-11.0 [facility] Comment on above: Performed By: #### C ALVINO ####[facility] Dyfypxlefv[address] [place], [place] [address]Dr. Abiel Clement LACTATE/LACTIC ACIDon 2021 Lactate [Moles/Vol] 2.5 mmol/L Critically high 0.4-1.9 [facility] Comment on above: Performed By: #### L ACT ####[facility] Wdjlebljun[address] [place], [place] [address]Dr. Abiel Clement POINT OF CARE GLUCOSEon Glucose [Mass/Vol] 238 mg/dL Critically high 74-106 [facility] Comment on above: Performed By: #### P OCGLUC ####[facility] Muxwiouyao[address] [place], [place] [address]DrKasia Clement PROF CHEM 8 (BAS METB)on Anion gap [Moles/Vol] 10.8 mmol/L Normal [facility] Comment on above: Performed By: #### B MP ####[facility] Mqlkvavjrv7322 [place] [id number]. Abiel Clement Calcium [Mass/Vol] 8.4 mg/dL Critically low 8.5-10.1 Th [facility] Comment on above: Performed By: #### B MP ####[facility] Lhsbxcarbs1541 [place] [id number]. Abiel Clement Chloride [Moles/Vol] 103 mmol/L Normal 98-107 [facility] Comment on above: Performed By: #### B MP ####[facility] Dbwycafsym3889 [place] [address]Dr. Abiel Clement CO2 [Moles/Vol] 27.0 mmol/L Normal 21.0-32.0 [facility] Comment on above: Performed By: #### B MP ####[facility] Trahfdgeee9121 [place] [address]Dr. Abiel Clement Creatinine [Mass/Vol] 1.02 mg/dL Normal 0.55-1.02 [facility] Comment on above: Performed By: #### B MP ####[facility] Pgknjofdtj6983 [place] [address]Dr. Abiel Clement EGFR-AF JORDANIAN >60 Normal >=60 [facility] Comment on above: Performed By: #### B MP ####[facility] Kdnwpiwemq[address] [place], [place] [address]Dr. Abiel Clement EGFR-NON AF JORDANIAN 55 mL/min/1.73m2 Critically low >=60 [facility] Comment on above: Performed By: #### B MP ####[facility] Seadcjbapp9678 [place] [address]Dr. Abiel Clement Glucose [Mass/Vol] 199 mg/dL Critically high 74-106 [facility] Comment on above: Performed By: #### B MP ####[facility] Rgrsteiznt0770 [place] [address]Dr. Abiel Clement Potassium [Moles/Vol] 3.8 mmol/L Normal 3.5-5.1 [facility] Comment on above: Performed By: #### B MP ####[facility] Uojugjytgo2211 [place] [id number]. Abiel Clement Sodium [Moles/Vol] 137 mmol/L Normal 136-145 The [facility] Comment on above: Performed By: #### B MP ####[facility] Qughfvkrwj1617 [place] [address]Dr. Abiel Clement Urea nitrogen [Mass/Vol] 21.0 mg/dL Critically high 7.0-18.0 [facility] Comment on above: Performed By: #### B MP ####[facility] Blphwawoec[address] [place], [place] [address]Dr. Abiel Clement Urea nitrogen/Creatinine [Mass ratio] 20.6 mg/mg Normal [facility] Comment on above: Performed By: #### B MP ####[facility] Bgoljonrke[address] [place], [place] [address]Dr. Abiel Clement ACETONE SERUMon 08-04-2022 ACETONE Negative Normal NEGATIVE [facility] Comment on above: Performed By: #### A CETON ####[facility] Rlomhcrvqk[address] [place], [place] [address]Dr. Abiel Clement AMMONIAon 08-04-2022 Ammonia (P) [Moles/Vol] 24 umol/L Normal 11-32 [facility] Comment on above: Performed By: #### A MM ####[facility] Vvmpjfwjcu[address] [place], [place] [address]Dr. Abiel Clement CBC AUTO DIFFon 08-04-2022 BASO # 0.0 103/ul Normal 0.0-0.1 [facility] Comment on above: Performed By: #### C BC ####[facility] Npeqwcbtpl[address] [place], [place] [address]Dr. Abiel Urbano Basophils/100 WBC (Bld) 0.3 % Normal 0.2-2.0 [facility] Comment on above: Performed By: #### C BC ####[facility] Ldkrkodgel3888 [place] [address]Dr. Abiel Urbano EO # 0.0 103/ul Normal 0.0-0.7 [facility] Comment on above: Performed By: #### C BC ####[facility] Susxcyzegc2822 [place] [id number]. Abiel Clement Eosinophils/100 WBC (Bld) 0.4 % Critically low 0.9-7.0 [facility] Comment on above: Performed By: #### C BC ####[facility] Njnpvrxqvo4937 [place] [address]Dr. Abiel Clement Erythrocyte distribution width (RBC) [Ratio] 15.1 % Critically high 11.0-15.0 [facility] Comment on above: Performed By: #### C BC ####[facility] Smvdlqxtud[address] [place], [place] [address]Dr. Abiel Clement Hematocrit (Bld) [Volume fraction] 37.7 % Normal 36.0-48.0 [facility] Comment on above: Performed By: #### C BC ####[facility] Bzzejlcmtj[address] [place], [place] [address]Dr. Abiel Clement Hemoglobin (Bld) [Mass/Vol] 12.4 g/dL Normal 12.0-16.0 [facility] Comment on above: Performed By: #### C BC ####[facility] Tklkgkfwtb3[address] [place], [place] [address]Dr. Abiel Clement IG # 0.02 10e3/ul Normal 0.00-0.03 [facility] Comment on above: Performed By: #### C BC ####[facility] Hnpisybxun[address] [place], [place] [address]Dr. Abiel Clement IG % 0.2 % Normal 0.0-0.5 [facility] Comment on above: Performed By: #### C BC ####[facility] Diwawkzlbl18[address] [place], [place] [address]Dr. Abiel Clement LYMPH # 0.6 103/ul Critically low 1.2-3.[address] [facility] Comment on above: Performed By: #### C BC ####[facility] Xyixxdirgi[address] [place], [place] [address]Dr. Abiel Clement Lymphocytes/100 WBC (Bld) 6.8 % Critically low 20.5-60.0 [facility] Comment on above: Performed By: #### C BC ####[facility] Boncrsgkxu1041 [place] [id number]. Abiel Clement MANUAL DIFF REQ NO Normal [facility] Comment on above: Performed By: #### C BC ####[facility] Hirsjjggph1587 [place] [id number]. Abiel Clement MCH (RBC) [Entitic mass] 27.7 pg Normal 26.7-34.0 [facility] Comment on above: Performed By: #### C BC ####[facility] Upujgidvwq7713 [place] [address]Dr. Abiel Clement MCHC (RBC) [Mass/Vol] 32.9 g/dL Normal 29.9-35.2 [facility] Comment on above: Performed By: #### C BC ####[facility] Yxqgbzbpbi[address] [place], [place] [address]Dr. Abiel Clement MCV (RBC) [Entitic vol] 84.2 fL Normal 81.0-99.0 [facility] Comment on above: Performed By: #### C BC ####[facility] Osteyqqrfa[address] [place], [place] [address]Dr. Abiel Clement MONO # 0.4 103/ul Normal 0.3-0.8 [facility] Comment on above: Performed By: #### C BC ####[facility] Lrmpgcszfx[address] [place], [place] [address]Dr. Abiel Clement Monocytes/100 WBC (Bld) 4.7 % Normal 1.7-12.0 [facility] Comment on above: Performed By: #### C BC ####[facility] Cyixopokuw[address] [place], [place] [address]Dr. Abiel Clement NEUT # 8.1 103/ul Critically high 1.4-6.5 [facility] Comment on above: Performed By: #### C BC ####[facility] Izmboljefk3758 [place] [address]Dr. Abiel Clement Neutrophils/100 WBC (Bld) 87.6 % Critically high 43.0-75.0 [facility] Comment on above: Performed By: #### C BC ####[facility] Nzoetpdwcb3542 [place] [address]Dr. Abiel Clement Platelet mean volume (Bld) [Entitic vol] 10.5 fL Normal 9.5-13.5 [facility] Comment on above: Performed By: #### C BC ####[facility] Qtpynprfxx7626 [place] [address]Dr. Abiel Clement PLT 286 103/ul Normal 150-450 [facility] Comment on above: Performed By: #### C BC ####[facility] Tdbgcdawix2304 [place] [address]Dr. Abiel Clement RBC 4.48 106/ul Normal 4.20-5.40 [facility] Comment on above: Performed By: #### C BC ####[facility] Efvcerozrd4872 [place] [address]Dr. Abiel Clement WBC 9.2 103/ul Normal 4.0-11.0 [facility] Comment on above: Performed By: #### C BC ####[facility] Uuxtclfupn5052 [place] [address]Dr. Abiel Clement CT ABD/PELV W CONon 08-04-20 CT ABD/PELV W CON Normal [facility] CT HEAD WO CONon 08-04-2022 CT HEAD WO CON Normal [facility] CULTURE BLOODon 08-04-2022 Microscopic examination of blood, culture Culture Observations: NO GROWTH AT 5 DAYS. Normal [facility] Comment on above: Performed By: #### B LDCX1 ####[facility] Djgxuhfjgu4092 [place] [id number]. Abiel Clement Performed By: #### B LDCX2 ####[facility] Hfqdtdkjqh4054 [place] [address]Dr. Abiel Clement Covid-19 PCR (CVDTB)on 07-08 SARS-CoV-2 (COVID-19) RNA CLARIBEL+probe Ql (Unsp spec) Not detected Normal NOT DETECTED [facility] Comment on above: Result Comment: When diagnostic testing is negative, the possibility of a false negative should be considered inthe context of a patient's recent exposures and the presence of clinical signs and symptomsconsistent with SARS-CoV-2.This test is not yet approved or cleared by the [place] FDA. When there are no FDA-approved or cleared tests available, and other criteria are met, FDA can make tests available under an emergency access mechanism called an Emergency Use Authorization (EUA). The EUA for this test is supported by the [employer] of Health and Human Service's declaration that circumstances exist to justify the emergency use of in vitro diagnostics for the detection and/or diagnosis of the virus that causes COVID-19. This EUA will remain in effect for the duration of the COVID-19 declaration justifying emergency of IVDs, unless it is terminated or revoked by the FDA (after which the test may no longer be used). Performed By: #### C VDTBH ####[facility] Gfmbohlrql[address] [place], [place] [address]Dr. Abiel Clement DRUG SCREEN RAPID (URINE)on 08-04-2022 AMP Negative Normal NEGATIVE [facility] Comment on above: Performed By: #### D RUGRPD ####[facility] Otzxzyugme[address] [place], [place] [address]Dr. Abiel Clement BAR Negative Normal NEGATIVE [facility] Comment on above: Performed By: #### D RUGRPD ####[facility] Uvkkqvusxp[address] [place], [place] [address]Dr. Abiel Clement BUP Negative Normal NEGATIVE [facility] Comment on above: Performed By: #### D RUGRPD ####[facility] Ylajskmgrj[address] [place], [place] [address]Dr. Abiel Clement BZO Negative Normal NEGATIVE [facility] Comment on above: Performed By: #### D RUGRPD ####[facility] Euqlxfvmsi[address] [place], [place] [address]Dr. Abiel Clement CAROLINE Negative Normal NEGATIVE [facility] Comment on above: Performed By: #### D RUGRPD ####[facility] Xpbtxsxwbn[address] [place], [place] [address]Dr. Abiel Cleemnt CUT-OFFS SEE BELOW Normal [facility] Comment on above: Result Comment: AMP (Amphetamine): 500ng/mL, BAR (Barbituates): 200 ng/mL, BZO (Benzodiazepines): 150 ng/mL, BUP (Buprenorphine): 10 ng/mL, CAROLINE (Cocaine): 150 ng/mL, mAMP (Methamphetamine): 500 ng/mL, MTD (Methadone): 200 ng/mL, OPI (Opiates): 100 ng/mL, OXY (Oxycodone): 100 ng/mL, PCP (Phencyclidine): 25 ng/mL, PPX (Propoxyphene): 300 ng/mL, THC (Cannabinoids): 50 ng/mL, TCA (Trycyclic Antidepressants): 300 ng/mL Performed By: #### D RUGRPD ####[facility] Gmhysqxpri[address] [place], [place] [address]Dr. [facility] DRUG CUT HEADER DRUG CLASS TEST SYSTEM CUT-OFF CONCENTRATIONS ARE FOLLOWS: Normal [facility] Comment on above: Performed By: #### D RUGRPD ####[facility] Euxayzorlj[address] [place], [place] [address]Dr. Abiel Clement mAMP Negative Normal NEGATIVE [facility] Comment on above: Performed By: #### D RUGRPD ####[facility] Zvbemcrevi399[address] [place], [place] [address]Dr. Abiel Clement MTD Negative Normal NEGATIVE [facility] Comment on above: Performed By: #### D RUGRPD ####[facility] Ejadueybbm[address] [place], [place] [address]Dr. Abiel Clement OPI Positive Abnormal NEGATIVE [facility] Comment on above: Performed By: #### D RUGRPD ####[facility] Hiwnnmongi[address] [place], [place] [address]Dr. Abiel Clement OXY Negative Normal NEGATIVE [facility] Comment on above: Performed By: #### D RUGRPD ####[facility] Jdcithoupc[address] [place], [place] [address]Dr. Abiel [facility] PCP Negative Normal NEGATIVE [facility] Comment on above: Performed By: #### D RUGRPD ####[facility] Iwrbbhlgtv9[address] [place], [place] [address]Dr. Abiel Clement PPX Negative Normal NEGATIVE [facility] Comment on above: Performed By: #### D RUGRPD ####[facility] Ozdtefvaxj6418 [place] [address]Dr. Abiel Urbano TCA Negative Normal NEGATIVE [facility] Comment on above: Performed By: #### D RUGRPD ####[facility] Xthabgycig[address] [place], [place] [address]Dr. Abiel Urbano THC Negative Normal NEGATIVE [facility] Comment on above: Performed By: #### D RUGRPD ####[facility] Cgceeyzxyh[address] [place], [place] [address]Dr. Abiel Clement ER URINE PROFILEon 2 Bilirubin Ql (U) Negative Normal NEGATIVE [facility] Comment on above: Performed By: #### NESSA ACE ####[facility] Yusgpudvwp8[address] [place], [place] [address]Dr. Abiel Clement Clarity (U) CLEAR Normal CLEAR [facility] Comment on above: Performed By: #### NESSA ACE ####[facility] Qhlerrbdbw[address] [place], [place] [address]Dr. Abiel Clement Color (U) LT. YELLOW Normal YELLOW [facility] Comment on above: Performed By: #### NESSA ACE ####[facility] Fxxlhcygbf435[address] [place], [place] [address]Dr. Abiel Clement ERUAHD A micrscopic examination will be performed if indicated. Normal [facility] Comment on above: Performed By: #### NESSA ACE ####[facility] Dyxabkpili375[address] [place], [place] [address]Dr. Abiel Clement Glucose Ql (U) Negative Normal NEGATIVE [facility] Comment on above: Performed By: #### NESSA ACE ####[facility] Xtfaiooltq936[address] [place], [place] [address]Dr. Abiel Clement Hemoglobin Ql (U) SMALL Abnormal NEGATIVE [facility] Comment on above: Performed By: #### NESSA ACE ####[facility] Sfszledayg[address] [place], [place] [address]Dr. Abiel Clement Ketones Ql (U) Negative Normal NEGATIVE [facility] Comment on above: Performed By: #### NESSA ACE ####[facility] Ruwmpwzzso9728 [place] [address]Dr. Abiel Clement LEUKOCYTES LARGE Abnormal NEGATIVE [facility] Comment on above: Performed By: #### NESSA ACE ####[facility] Ymvdxcshpb3336 [place] [address]Dr. Abiel Clement Nitrite Ql (U) Negative Normal NEGATIVE [facility] Comment on above: Performed By: #### NESSA ACE ####[facility] Wmfwjagwnh[address] [place], [place] [address]Dr. Abiel Clement pH (U) 5.0 [pH] Normal 5-9 [facility] Comment on above: Performed By: #### NESSA ACE ####[facility] Iwnhoxyzco398[address] [place], [place] [address]Dr. Abiel Clement SPEC GRAVITY 1.020 Normal 1.005-<=1.02 5 [facility] Comment on above: Performed By: #### NESSA ACE ####[facility] Tpuogddpxq[address] [place], [place] [address]Dr. Abiel Clement UA PROTEIN Negative Normal NEGATIVE/ TRACE [facility] Comment on above: Performed By: #### NESSA ACE ####[facility] Dloeuutohw[address] [place], [place] [address]Dr. Abiel Clement UR MICRO IND INDICATED Normal [facility] Comment on above: Performed By: #### NESSA ACE ####[facility] Cdtntryrrm[address] [place], [place] [address]Dr. Abiel Clement Urobilinogen Qn (U) 0.2 {Keegan'U}/dL Normal 0.2 - 1. 0 [facility] Comment on above: Performed By: #### CARLOS ACERO ####[facility] Kcmezuxfuw[address] [place], [place] [address]Dr. Abiel Clement ETHANOL (BLD ALC)on 08-04-20 22 ALC NOTE NOTE: 80 mg/dl is th e legal limit for a blood alcohol level Normal [facility] Comment on above: Performed By: #### E TH ####[facility] Azzwbubpew[address] [place], [place] [address]Dr. Abiel Clement Ethanol [Mass/Vol] mg/dL Normal [facility] Comment on above: Performed By: #### E TH ####[facility] Jlsopvdhfw[address] [place], [place] [address]Dr. Abiel Clement INFLUENZA A AND B AGon 08-04 INFLUANEGH SEE BELOW Normal [facility] Comment on above: Result Comment: Nega tive for Flu A protein angiten. Infection due to Flu A cannot be ruled out. Flu A angiten in the sample may be below the detection limit of the test. Performed By: #### I NFLUAB ####[facility] Twtlkojbwe[address] [place], [place] [address]Dr. Abiel Clement INFLUBNEGH SEE BELOW Normal [facility] Comment on above: Result Comment: Nega tive for Flu B protein antigen. Infection due to Flu B cannot be ruled out. Flu B antigen in the sample may be below the detection limit of the test. Performed By: #### I NFLUAB ####[facility] [address]ztskjno[address] [place], [place] [address]Dr. Abiel Clement INFLUENZA A AG Negative Normal NEGATIVE SEE COMMENT [facility] Comment on above: Performed By: #### I NFLUAB ####[facility] Qfkcnvvfet[address] [place], [place] [address]Dr. Abiel Clement INFLUENZA B AG Negative Normal NEGATIVE SEE COMMENT [facility] Comment on above: Performed By: #### I NFLUAB ####[facility] Jixoarauqr[address] [place], [place] [address]Dr. Suyapaviviana Clement INTERNAL CONTROLS Within Normal Limits Normal Wi thin Normal Limits [facility] Comment on above: Performed By: #### I NFLUAB ####[facility] Ifpqewiejw[address] [place], [place] [address]Dr. Abiel Clement LACTATE/LACTIC ACIDon 2021 Lactate [Moles/Vol] 2.0 mmol/L Critically high 0.4-1.9 [facility] Comment on above: Performed By: #### L ACT ####[facility] Dhxyhtxhmy86[address] [place] [address]Dr. Abiel Clement LIPASEon 08-04-2022 Lipase [Catalytic activity/Vol] 28.0 U/L Critically low 73.0-393.0 [facility] Comment on above: Performed By: #### L IPA, CMP, HSTROPN, TSH ####[facility] [address]em[address]wykj[address] [place] [address]Dr. Abiel Clement PH VENOUS BLOODon 08-04-2022 PCO2 VENOUS 30.0 mmHg Critically low 40.0-52.0 [facility] Comment on above: Performed By: #### P HVEN ####[facility] Rqjngybdnr6213 [place] [address]Dr. Abiel Clement pH VENOUS 7.509 Critically high 7.330-7.430 [facility] Comment on above: Performed By: #### P HVEN ####[facility] Kpnlrkncll99[address] [place] [address]Dr. Abiel Clement POINT OF CARE GLUCOSEon 07-08 Glucose [Mass/Vol] 230 mg/dL Critically high 74-106 [facility] Comment on above: Performed By: #### P OCGLUC ####[facility] Ytmlxraayw[address] [place] [address]Dr. Abiel Clement PROF 14(COMP METB)on 022 Albumin [Mass/Vol] 3.0 g/dL Critically low 3.4-5.0 [facility] Comment on above: Performed By: #### L IPA, CMP, HSTROPN, TSH ####[facility] Ygfxwguwkr4032 [place] [address]Dr. Abiel Clement Albumin/Globulin [Mass ratio] 0.7 {ratio} Normal [facility] Comment on above: Performed By: #### L IPA, CMP, HSTROPN, TSH ####[facility] Uquiawiofk027[address] [place] [address]Dr. Abiel Clement ALP [Catalytic activity/Vol] 196 U/L Critically high 46-116 [facility] Comment on above: Performed By: #### L IPA, CMP, HSTROPN, TSH ####[facility] Rxiupqywqc50[address] [place] [address]Dr. Abiel Clement ALT [Catalytic activity/Vol] 21 U/L Normal 14-59 [facility] Comment on above: Performed By: #### L IPA, CMP, HSTROPN, TSH ####[facility] Mezpabyasn50[address] [place] [address]Dr. Abiel Clement Anion gap [Moles/Vol] 12.1 mmol/L Normal [facility] Comment on above: Performed By: #### L IPA, CMP, HSTROPN, TSH ####[facility] Wbhimpcrht18[address] [place] [address]Dr. Abiel Clement AST [Catalytic activity/Vol] 29 U/L Normal 15-37 [facility] Comment on above: Performed By: #### L IPA, CMP, HSTROPN, TSH ####[facility] Rhpkzypffr8603 [place] [address]Dr. Abiel Clement Bilirubin [Mass/Vol] 0.3 mg/dL Normal 0.2-1.0 [facility] Comment on above: Performed By: #### L IPA, CMP, HSTROPN, TSH ####[facility] Ylevkmzagi2052 [place] [address]Dr. Abiel Clement Calcium [Mass/Vol] 8.9 mg/dL Normal 8.5-10.1 [facility] Comment on above: Performed By: #### L IPA, CMP, HSTROPN, TSH ####[facility] Fjoabloink4[address] [place] [address]Dr. Abiel Clement Chloride [Moles/Vol] 102 mmol/L Normal 98-107 [facility] Comment on above: Performed By: #### L IPA, CMP, HSTROPN, TSH ####[facility] Aathzmklsa36[address] [place] [address]Dr. Abiel Clement CO2 [Moles/Vol] 27.1 mmol/L Normal 21.0-32.0 [facility] Comment on above: Performed By: #### L IPA, CMP, HSTROPN, TSH ####[facility] Hmpmfrfqhe2942 [place] [address]Dr. Abiel Clement Creatinine [Mass/Vol] 0.83 mg/dL Normal 0.55-1.02 [facility] Comment on above: Performed By: #### L IPA, CMP, HSTROPN, TSH ####[facility] Nlmpxiokhk15[address] [place] [address]Dr. Abiel Clement EGFR-AF JORDANIAN >60 Normal >=60 [facility] Comment on above: Performed By: #### L IPA, CMP, HSTROPN, TSH ####[facility] Vkbtrwmdft[address] [place], [place] [address]Dr. Abiel Clement EGFR-NON AF JORDANIAN >60 Normal >=60 [facility] Comment on above: Performed By: #### L IPA, CMP, HSTROPN, TSH ####[facility] Xglmxksemy[address] [place], [place] [address]Dr. Abiel Clement Globulin (S) [Mass/Vol] 4.2 g/dL Normal [facility] Comment on above: Performed By: #### L IPA, CMP, HSTROPN, TSH ####[facility] Evtwoelzjr5309 [place] [address]Dr. Abiel Clement Glucose [Mass/Vol] 132 mg/dL Critically high 74-106 [facility] Comment on above: Performed By: #### L IPA, CMP, HSTROPN, TSH ####[facility] Ffcyygvbha3634 [place] [address]Dr. Abiel Clement Potassium [Moles/Vol] 4.2 mmol/L Normal 3.5-5.1 [facility] Comment on above: Performed By: #### L IPA, CMP, HSTROPN, TSH ####[facility] Jymhlvrgbt[address] [place] [address]Dr. Abiel Clement Protein [Mass/Vol] 7.2 g/dL Normal 6.4-8.2 [facility] Comment on above: Performed By: #### L IPA, CMP, HSTROPN, TSH ####[facility] Mtmfgbqian[address] [place], [place] [address]Dr. Abiel Clement Sodium [Moles/Vol] 137 mmol/L Normal 136-145 [facility] Comment on above: Performed By: #### L IPA, CMP, HSTROPN, TSH ####[facility] Lpjdgnqtut8[address] [place], [place] [address]Dr. Abiel Clement Urea nitrogen [Mass/Vol] 18.0 mg/dL Normal 7.0-18.0 [facility] Comment on above: Performed By: #### L IPA, CMP, HSTROPN, TSH ####[facility] Rpqdennhpo230[address] [place], [place] [address]Dr. Abiel Clement Urea nitrogen/Creatinine [Mass ratio] 21.7 mg/mg Normal [facility] Comment on above: Performed By: #### L IPA, CMP, HSTROPN, TSH ####[facility] Hcbnvajhzq[address] [place], [place] [address]Dr. Abiel Clement PROTIMEon 08-04-2022 INR Coag (PPP) [Relative time] 1.05 {INR} Normal [facility] Comment on above: Performed By: #### P TT, PT ####[facility] Vcrghiqeac199[address] [place], [place] [address]Dr. Abiel Clement INR GUIDELINES SEE BELOW Normal [facility] Comment on above: Result Comment: GELY RED INR: 2.0 - 3.0 CONDITIONS NOT LISTED BELOW 2.5 - 3.5 FOR PROSTHETIC HEART VALVE REPLACEMENT 2.5 - 3.5 RECURRENT THROMBOSIS Performed By: #### P TT, PT ####[facility] Dxfzikgtei[address] [place], [place] [address]Dr. Abiel Clement PT Coag (PPP) [Time] 11.3 s Normal 9.0-11.6 [facility] Comment on above: Performed By: #### P TT, PT ####[facility] Iirkkythwz[address] [place], [place] [address]Dr. Abiel Clement PTTon 08-04-2022 aPTT Coag (Bld) [Time] 25.2 s Normal 22.3-36.2 [facility] Comment on above: Performed By: #### P TT, PT ####[facility] Zlivuhbihv28[address] [place] [address]Dr. Abiel Clement TROPONIN, HIGH SENSITIVITYon 08-04-2022 HSTROP 5.0 pg/mL Normal 4.0-51.3 [facility] Comment on above: Result Comment: CUT- OFF POINTS HAVE BEEN ESTABLISHED BASED ON THE FOURTH UNIVERSAL DEFINITIONS OF MYOCARDIALINFARCTION. THE UPPER REFERENCE LIMIT (URL) OF TROPONIN, DEFINED THE 99TH PERCENTILE OFcTnI DISTRIBUTION IN A REFERENCE POPULATION, HAS BEEN CONFIRMED THE DECISION THRESHOLDFOR MD DIAGNOSIS. Performed By: #### L IPA, CMP, HSTROPN, TSH ####[facility] Gtobwkenra[address] [place] [address]Dr. Abiel Clement TSHon 08-04-2022 TSH 1.695 uIU/mL Normal 0.358-3.740 [facility] Comment on above: Performed By: #### L IPA, CMP, HSTROPN, TSH ####[facility] Jtgulwneaf58[address] [place] [address]Dr. Suyapaviviana Clement URINE MICROSCOPIC ONLYon BACTERIA MODERATE Abnormal NONE SEEN [facility] Comment on above: Performed By: #### DARIUSZ ACEICRO ####[facility] Uqubflzapq07[address] [place] [address]Dr. Suyaapviviana Clement Bacteria identified Cx Nom (U) INDICATED Normal [facility] Comment on above: Performed By: #### Krystle GERMAN UMICRO ####[facility] Jlvbjboqnf5[address] [place] [address]Dr. Abiel Clement CAST NONE SEEN Normal NONE SEEN [facility] Comment on above: Performed By: #### Krystle GERMAN UMICRO ####[facility] Jrcpghmmff0117 [place] [address]Dr. Abiel Clement Crystals LM Nom (Urine sed) NONE SEEN Normal NONE SEEN [facility] Comment on above: Performed By: #### NESSA ACE ####[facility] Jbklzxlukz32[address] [place] [address]Dr. Abiel Clement Epithelial cells LM Ql (Urine sed) FEW Abnormal NONE SEEN /RARE [facility] Comment on above: Performed By: #### NESSA ACE ####[facility] Pxpwgzjmpl2468 [place] [address]Dr. Abiel Clement MUCOUS NONE SEEN Normal NONE SEEN [facility] Comment on above: Performed By: #### NESSA ACE ####[facility] Gapnrxtnoe[address] [place], [place] [address]Dr. Abiel Clement RBC 2-5 Abnormal 0-2 [facility] Comment on above: Performed By: #### NESSA ACE ####[facility] Fecthjzdrq[address] [place], [place] [address]Dr. Abiel Clement WBC 10-20 Abnormal NONE SEEN [facility] Comment on above: Performed By: #### NESSA ACE ####[facility] [address]gjgvzsy[address] [place], [place] [address]Dr. Abiel Clement XR CHEST 1 Von 08-04-2022 XR CHEST 1 V Normal [facility] XR FOOT RT MIN 3 VIEWSon XR FOOT RT MIN 3 VIEWS Normal [facility] CBC AUTO DIFFon 06-03-2022 BASO # 0.0 103/ul Normal 0.0-0.1 [facility] Comment on above: Performed By: #### C BC ####[facility] Iqzixrxfcu456[address] [place], [place] [address]Dr. Abiel Clement Basophils/100 WBC (Bld) 0.5 % Normal 0.2-2.0 [facility] Comment on above: Performed By: #### C BC ####[facility] Qfmwkfgsko[address] [place], [place] [address]Dr. Abiel Clement EO # 0.3 103/ul Normal 0.0-0.7 [facility] Comment on above: Performed By: #### C BC ####[facility] Fzayknotog[address] [place], [place] [address]Dr. Abiel Clement Eosinophils/100 WBC (Bld) 3.5 % Normal 0.9-7.0 [facility] Comment on above: Performed By: #### C BC ####[facility] Hrunbslvcw0084 [place] [address]Dr. Abiel Clement Erythrocyte distribution width (RBC) [Ratio] 13.7 % Normal 11.0-15.0 [facility] Comment on above: Performed By: #### C BC ####[facility] Pqeprbppbj[address] [place], [place] [address]Dr. Abiel Clement Hematocrit (Bld) [Volume fraction] 34.2 % Critically low 36.0-48.0 [facility] Comment on above: Performed By: #### C BC ####[facility] Siklwsncoh[address] [place], [place] [address]Dr. Abiel Clement Hemoglobin (Bld) [Mass/Vol] 10.5 g/dL Critically low 12.0-16.0 [facility] Comment on above: Performed By: #### C BC ####[facility] Uprcwtkvdd[address] [place], [place] [address]Dr. Abiel Clement IG # 0.02 10e3/ul Normal 0.00-0.03 [facility] Comment on above: Performed By: #### C BC ####[facility] Ndluozlvfs[address] [place], [place] [address]Dr. Abiel Clement IG % 0.3 % Normal 0.0-0.5 [facility] Comment on above: Performed By: #### C BC ####[facility] Tefqhkbhrf[address] [place], [place] [address]Dr. Abiel Clement LYMPH # 1.4 103/ul Normal 1.2-3.8 [facility] Comment on above: Performed By: #### C BC ####[facility] Hgrqszqdrh[address] [place], [place] [address]Dr. Abiel Clement Lymphocytes/100 WBC (Bld) 18.5 % Critically low 20.5-60.0 [facility] Comment on above: Performed By: #### C BC ####[facility] Hykdrzdlwf[address] [place], [place] [address]Dr. Abiel Clement MANUAL DIFF REQ NO Normal [facility] Comment on above: Performed By: #### C BC ####[facility] Gjfphvezuq023[address] [place] [address]Dr. Abiel Urbano MCH (RBC) [Entitic mass] 27.8 pg Normal 26.7-34.0 [facility] Comment on above: Performed By: #### C BC ####[facility] Ayqydquxzv[address] [place], [place] [address]Dr. Abiel Urbano MCHC (RBC) [Mass/Vol] 30.7 g/dL Normal 29.9-35.2 [facility] Comment on above: Performed By: #### C BC ####[facility] Gsdlrmstsh[address] [place], [place] [address]Dr. Abiel Clement MCV (RBC) [Entitic vol] 90.5 fL Normal 81.0-99.0 [facility] Comment on above: Performed By: #### C BC ####[facility] Cqxwphdtes[address] [place], [place] [address]Dr. Abiel Clement MONO # 0.7 103/ul Normal 0.3-0.8 [facility] Comment on above: Performed By: #### C BC ####[facility] Ikemvfpeij[address] [place], [place] [address]Dr. Abiel Clement Monocytes/100 WBC (Bld) 8.5 % Normal 1.7-12.0 [facility] Comment on above: Performed By: #### C BC ####[facility] Frimlptuon[address] [place], [place] [address]Dr. Abiel Clement NEUT # 5.2 103/ul Normal 1.4-6.5 [facility] Comment on above: Performed By: #### C BC ####[facility] Ihivwbwici[address] [place], [place] [address]Dr. Abiel Clement Neutrophils/100 WBC (Bld) 68.7 % Normal 43.0-75.0 [facility] Comment on above: Performed By: #### C BC ####[facility] Caahugxqkj[address] [place], [place] [address]Dr. Abiel Clement Platelet mean volume (Bld) [Entitic vol] 11.0 fL Normal 9.5-13.5 [facility] Comment on above: Performed By: #### C BC ####[facility] Llaawgejzh25[address] [place] [address]Dr. Abiel Clement PLT 249 103/ul Normal 150-450 [facility] Comment on above: Performed By: #### C BC ####[facility] Eocfmmbcdm1364 [place] [address]Dr. Abiel Clement RBC 3.78 106/ul Critically low 4.20-5.40 [facility] Comment on above: Performed By: #### C BC ####[facility] Pykyqaxfdl7911 [place] [address]Dr. Abiel Clement WBC 7.6 103/ul Normal 4.0-11.0 [facility] Comment on above: Performed By: #### C BC ####[facility] Zccxkpkjfc8422 [place] [address]Dr. Abiel Clement POINT OF CARE GLUCOSEon 05-07 Glucose [Mass/Vol] 84 mg/dL Normal 74-106 [facility] Comment on above: Performed By: #### P OCGLUC ####[facility] Fpxahvfplc[address] [place] [address]Dr. Abiel Clement Glucose [Mass/Vol] 49 mg/dL Critically low 74-106 [facility] Comment on above: Result Comment: Will Repeat Test Performed By: #### P OCGLUC ####[facility] Zwgwrbicxd9091 [place] [address]Dr. Abiel Clement Glucose [Mass/Vol] 182 mg/dL Critically high 74-106 [facility] Comment on above: Performed By: #### P OCGLUC ####[facility] Kikoyzhzzl9882 [place] [address]Dr. Abiel Clement PROF CHEM 8 (BAS METB)on Anion gap [Moles/Vol] 8.5 mmol/L Normal [facility] Comment on above: Performed By: #### B MP ####[facility] Ffwzpkrcjo0434 [place] [id number]. Abiel Clement Calcium [Mass/Vol] 9.2 mg/dL Normal 8.5-10.1 [facility] Comment on above: Performed By: #### B MP ####[facility] Toebuuqkva1812 [place] [id number]. Abiel Clement Chloride [Moles/Vol] 99 mmol/L Normal 98-107 [facility] Comment on above: Performed By: #### B MP ####[facility] Tmynvvsivt4007 [place] [address]Dr. Abiel Clement CO2 [Moles/Vol] 29.5 mmol/L Normal 21.0-32.0 [facility] Comment on above: Performed By: #### B MP ####[facility] Cdfxlailed[address] [place], [place] [address]Dr. Abiel Clement Creatinine [Mass/Vol] 0.97 mg/dL Normal 0.55-1.02 [facility] Comment on above: Performed By: #### B MP ####[facility] Fxaeuliibn9355 [place] [address]Dr. Abiel Clement EGFR-AF JORDANIAN >60 Normal >=60 [facility] Comment on above: Performed By: #### B MP ####[facility] Ddqccizhsv[address] [place], [place] [address]Dr. Abiel Clement EGFR-NON AF JORDANIAN 58 mL/min/1.73m2 Critically low >=60 [facility] Comment on above: Performed By: #### B MP ####[facility] Bfoobortqb[address] [place], [place] [address]Dr. Abiel Clement Glucose [Mass/Vol] 193 mg/dL Critically high 74-106 [facility] Comment on above: Performed By: #### B MP ####[facility] Wxfbmoooil[address] [place], [place] [address]Dr. Abiel Clement Potassium [Moles/Vol] 4.0 mmol/L Normal 3.5-5.1 [facility] Comment on above: Performed By: #### B MP ####[facility] Tbhdhcyrsr0088 [place] [id number]. Abiel Clement Sodium [Moles/Vol] 133 mmol/L Critically low 136-145 [facility] Comment on above: Performed By: #### B MP ####[facility] Cztmljmfja[address] [place] [address]Dr. Abiel Clement Urea nitrogen [Mass/Vol] 20.0 mg/dL Critically high 7.0-18.0 [facility] Comment on above: Performed By: #### B MP ####[facility] Arsntlcpcn[address] [place] [address]Dr. Abiel Clement Urea nitrogen/Creatinine [Mass ratio] 20.6 mg/mg Normal [facility] Comment on above: Performed By: #### B MP ####[facility] Ybcitzmdmx3733 [place] [address]Dr. Abiel Clement POINT OF CARE GLUCOSEon 05-07 Glucose [Mass/Vol] 62 mg/dL Critically low 74-106 [facility] Comment on above: Performed By: #### P OCGLUC ####[facility] Jiuxuksuid4467 [place] [address]Dr. Suyapalan Clement Glucose [Mass/Vol] 75 mg/dL Normal 74-106 [facility] Comment on above: Performed By: #### P OCGLUC ####[facility] Qedmeyufdn[address] [place], [place] [address]Dr. Suyapalan Clement Glucose [Mass/Vol] 83 mg/dL Normal 74-106 [facility] Comment on above: Performed By: #### P OCGLUC ####[facility] Nsyecgfuhf8587 [place] [address]Dr. Suyapalan Clement Glucose [Mass/Vol] 107 mg/dL Critically high 74-106 [facility] Comment on above: Performed By: #### P OCGLUC ####[facility] Hkbggoiodv[address] [place], [place] [address]Dr. Yilan Clement Glucose [Mass/Vol] 140 mg/dL Critically high 74-106 [facility] Comment on above: Performed By: #### P OCGLUC ####[facility] Nkzosjyjsm[address] [place] [id number]. Abiel Clement CBC AUTO DIFFon 06-01-2022 BASO # 0.0 103/ul Normal 0.0-0.1 [facility] Comment on above: Performed By: #### C BC ####[facility] P[address]dqerws[address] [place], [place] [address]Dr. Suyapaviviana Clement Basophils/100 WBC (Bld) 0.3 % Normal 0.2-2.0 [facility] Comment on above: Performed By: #### C BC ####[facility] Xbkqidgfgl[address] [place], [place] [address]Dr. Abiel Clement EO # 0.2 103/ul Normal 0.0-0.7 [facility] Comment on above: Performed By: #### C BC ####[facility] Obridoknoq[address] [place], [place] [address]Dr. Abiel Clement Eosinophils/100 WBC (Bld) 1.9 % Normal 0.9-7.0 [facility] Comment on above: Performed By: #### C BC ####[facility] Jfnyszyjte[address] [place], [place] [address]Dr. Suyapaviviana Clement Erythrocyte distribution width (RBC) [Ratio] 13.8 % Normal 11.0-15.0 [facility] Comment on above: Performed By: #### C BC ####[facility] [address]axdfcxb[address] [place], [place] [address]Dr. Abiel Clement Hematocrit (Bld) [Volume fraction] 37.7 % Normal 36.0-48.0 [facility] Comment on above: Performed By: #### C BC ####[facility] Ewzjnyepxb[address] [place], [place] [address]Dr. Abiel Clement Hemoglobin (Bld) [Mass/Vol] 11.7 g/dL Critically low 12.0-16.0 [facility] Comment on above: Performed By: #### C BC ####[facility] Kpnqlwlibz[address] [place], [place] [address]Dr. Abiel Clement IG # 0.03 10e3/ul Normal 0.00-0.03 [facility] Comment on above: Performed By: #### C BC ####[facility] Xtffasdzid0838 [place] [id number]. Abiel Clement IG % 0.3 % Normal 0.0-0.5 [facility] Comment on above: Performed By: #### C BC ####[facility] Highnjaglc7028 [place] [id number]. Abiel Clement LYMPH # 1.1 103/ul Critically low 1.2-3.8 [facility] Comment on above: Performed By: #### C BC ####[facility] Ncwupulcyl2345 [place] [id number]. Suyapaviviana Clement Lymphocytes/100 WBC (Bld) 12.0 % Critically low 20.5-60.0 [facility] Comment on above: Performed By: #### C BC ####[facility] Kvkjnxouwf9587 [place] [address]Dr. Abiel Clement MANUAL DIFF REQ NO Normal [facility] Comment on above: Performed By: #### C BC ####[facility] Cbcxpqqowq4662 [place] [id number]. Abiel Clement MCH (RBC) [Entitic mass] 27.9 pg Normal 26.7-34.0 [facility] Comment on above: Performed By: #### C BC ####[facility] Aljswllriq4471 [place] [address]Dr. Abiel Clement MCHC (RBC) [Mass/Vol] 31.0 g/dL Normal 29.9-35.2 [facility] Comment on above: Performed By: #### C BC ####[facility] Tpciwmpbuq9232 [place] [id number]. Abiel Clement MCV (RBC) [Entitic vol] 89.8 fL Normal 81.0-99.0 [facility] Comment on above: Performed By: #### C BC ####[facility] Senrtffyfx[address] [place], [place] [address]Dr. Suyapaviviana Clement MONO # 0.7 103/ul Normal 0.3-0.8 [facility] Comment on above: Performed By: #### C BC ####[facility] Zlfhnbnchb4703 [place] [id number]. Abiel Clement Monocytes/100 WBC (Bld) 8.0 % Normal 1.7-12.0 [facility] Comment on above: Performed By: #### C BC ####[facility] Rkqkpnttmt3376 [place] [address]Dr. Abiel Clement NEUT # 6.9 103/ul Critically high 1.4-6.5 [facility] Comment on above: Performed By: #### C BC ####[facility] Sovhjculzq2031 [place] [address]Dr. Abiel Clement Neutrophils/100 WBC (Bld) 77.5 % Critically high 43.0-75.0 [facility] Comment on above: Performed By: #### C BC ####[facility] Ahxuiurwct3[address] [place] [address]Dr. Abiel Clement Platelet mean volume (Bld) [Entitic vol] 11.1 fL Normal 9.5-13.5 [facility] Comment on above: Performed By: #### C BC ####[facility] Nrqyjebkfb8[address] [place] [address]Dr. Abiel Clement PLT 276 103/ul Normal 150-450 [facility] Comment on above: Performed By: #### C BC ####[facility] Jpubaahwow3147 [place] [id number]. Abiel Clement RBC 4.20 106/ul Normal 4.20-5.40 [facility] Comment on above: Performed By: #### C BC ####[facility] Cuazseowkr1651 [place] [id number]. Abiel Clement WBC 8.9 103/ul Normal 4.0-11.0 [facility] Comment on above: Performed By: #### C BC ####[facility] Qfjhrkrtlj40[address] [place] [address]Dr. Abiel Clement POINT OF CARE GLUCOSEon 09-2 Glucose [Mass/Vol] 121 mg/dL Critically high 74-106 [facility] Comment on above: Performed By: #### P OCGLUC ####[facility] Bqnngdavis[address] [place] [address]Dr. Abiel Clement Glucose [Mass/Vol] 303 mg/dL Critically high 74-106 [facility] Comment on above: Performed By: #### P OCGLUC ####[facility] Pyvvqvbqgs2120 [place] [address]Dr. Abiel Clement PROF 14(COMP METB)on 022 Albumin [Mass/Vol] 2.8 g/dL Critically low 3.4-5.0 [facility] Comment on above: Performed By: #### C MP ####[facility] [address]qntcoyz[address] [place], [place] [address]Dr. Abiel Clement Albumin/Globulin [Mass ratio] 0.7 {ratio} Normal [facility] Comment on above: Performed By: #### C MP ####[facility] [address]wyrdj[address] [place], [place] [address]Dr. Abiel Clement ALP [Catalytic activity/Vol] 174 U/L Critically high 46-116 [facility] Comment on above: Performed By: #### C MP ####[facility] Iyishotrhc[address] [place], [place] [address]Dr. Abiel Clement ALT [Catalytic activity/Vol] 14 U/L Normal 14-59 [facility] Comment on above: Performed By: #### C MP ####[facility] Xtaehhgztv[address] [place], [place] [address]Dr. Abiel Clement Anion gap [Moles/Vol] 14.2 mmol/L Normal [facility] Comment on above: Performed By: #### C MP ####[facility] Cr[address]zwqif[address] [place], [place] [address]Dr. Abiel Clement AST [Catalytic activity/Vol] 13 U/L Critically low 15-37 [facility] Comment on above: Performed By: #### C MP ####[facility] B[address]oopdvam[address] [place], [place] [address]Dr. Abiel Clement Bilirubin [Mass/Vol] 0.1 mg/dL Critically low 0.2-1.0 [facility] Comment on above: Performed By: #### C MP ####[facility] Mvkzwuqfho0322 [place] [id number]. Abiel Clement Calcium [Mass/Vol] 8.9 mg/dL Normal 8.5-10.1 [facility] Comment on above: Performed By: #### C MP ####[facility] Wlpazojdyc9120 [place] [id number]. Abiel Clement Chloride [Moles/Vol] 99 mmol/L Normal 98-107 [facility] Comment on above: Performed By: #### C MP ####[facility] Qglojpadzd[address] [place] [id number]. Abiel Clement CO2 [Moles/Vol] 27.1 mmol/L Normal 21.0-32.0 [facility] Comment on above: Performed By: #### C MP ####[facility] Oluvscgums[address] [place], [place] [address]Dr. Abiel Urbano Creatinine [Mass/Vol] 1.19 mg/dL Critically high 0.55-1.02 [facility] Comment on above: Performed By: #### C MP ####[facility] Ibcpnhjedc[address] [place], [place] [address]Dr. Abiel Urbano EGFR-AF JORDANIAN 56 mL/min/1.73m2 Critically low >=60 [facility] Comment on above: Performed By: #### C MP ####[facility] Lfpqwezmai[address] [place] [address]Dr. Suyapaviviana Urbano EGFR-NON AF JORDANIAN 46 mL/min/1.73m2 Critically low >=60 [facility] Comment on above: Performed By: #### C MP ####[facility] Ufzfxpibbr70[address] [place] [id number]. Abiel Urbano Globulin (S) [Mass/Vol] 4.0 g/dL Normal [facility] Comment on above: Performed By: #### C MP ####[facility] Pikwcijosd3251 [place] [id number]. Abiel Clement Glucose [Mass/Vol] 148 mg/dL Critically high 74-106 [facility] Comment on above: Performed By: #### C MP ####[facility] Ymltrfsdji4661 [place] [address]Dr. Abiel Clement Potassium [Moles/Vol] 4.3 mmol/L Normal 3.5-5.1 [facility] Comment on above: Performed By: #### C MP ####[facility] Rvmtqhoqdy101[address] [place] [address]Dr. Abiel Clement Protein [Mass/Vol] 6.8 g/dL Normal 6.4-8.2 [facility] Comment on above: Performed By: #### C MP ####[facility] Ciaefrkzoa6[address] [place] [address]Dr. Abiel Clement Sodium [Moles/Vol] 136 mmol/L Normal 136-145 [facility] Comment on above: Performed By: #### C MP ####[facility] Lpkxruxblz[address] [place], [place] [address]Dr. Abiel Urbano Urea nitrogen [Mass/Vol] 25.0 mg/dL Critically high 7.0-18.0 [facility] Comment on above: Performed By: #### C MP ####[facility] Ltajutqdrt[address] [place], [place] [address]Dr. Abiel Clement Urea nitrogen/Creatinine [Mass ratio] 21.0 mg/mg [facility] Comment on above: Performed By: #### C MP ####[facility] Dxrpfgsngl[address] [place], [place] [address]Dr. Abiel Urbano XR CHEST 1 Von 06-01-2022 XR CHEST 1 V Normal [facility] POINT OF CARE GLUCOSEon 05-07 Glucose [Mass/Vol] 195 mg/dL Critically high 74-106 [facility] Comment on above: Performed By: #### P OCGLUC ####[facility] Fjshucvyka[address] [place], [place] [address]Dr. Abiel Urbano Glucose [Mass/Vol] 236 mg/dL Critically high 74-106 [facility] Comment on above: Performed By: #### P OCGLUC ####[facility] Sbxzmalexc[address] [place], [place] [address]Dr. Abiel Clement Glucose [Mass/Vol] 169 mg/dL Critically high 74-106 [facility] Comment on above: Performed By: #### P OCGLUC ####[facility] Chqthiageg45[address] [place] [id number]. Abiel Clement Glucose [Mass/Vol] 162 mg/dL Critically high 74-106 [facility] Comment on above: Performed By: #### P OCGLUC ####[facility] Esrpucplcj6[address] [place] [address]Dr. Abiel Clement XR FOOT RT MIN 3 VIEWSon XR FOOT RT MIN 3 VIEWS Normal [facility] Covid-19 PCR (CVDTBH)on 05-07 SARS-CoV-2 (COVID-19) RNA CLARIBEL+probe Ql (Unsp spec) Not detected Normal NOT DETECTED [facility] Comment on above: Result Comment: This test is not yet approved or cleared by the [place] FDA. When there are no FDA-approved or cleared tests available, and other criteria are met, FDA can make tests available under an emergency access mechanism called an Emergency Use Authorization (EUA). The EUA for this test is supported by the [employer] Teacher of Health and Human Service's (HHS's) declaration that circumstances exist to justify the emergency use of in vitro diagnostics for the detection and/or diagnosis of the virus that causes COVID-19. This EUA will remain in effect (meaning this test can be used) for the duration of the COVID-19 declaration justifying emergency of IVDs, unless it is terminated or revoked by FDA (after which the test may no longer be used).When diagnostic testing is negative, the possibility of a false negative should be considered inthe context of a patient's recent exposures and the presence of clinical signs and symptomsconsistent with SARS-CoV-2. Performed By: #### C VDTBH ####[facility] Prtonplneg[address] [place] [address]Dr. Abiel Clement PROF CHEM 8 (BAS METB)on Anion gap [Moles/Vol] 11.8 mmol/L Normal [facility] Comment on above: Performed By: #### B MP ####[facility] Lggyuyrnel668[address] [place] [address]Dr. Abiel Clement Calcium [Mass/Vol] 9.1 mg/dL Normal 8.5-10.1 [facility] Comment on above: Performed By: #### B MP ####[facility] Ceokjvspgb4[address] [place] [address]Dr. Abiel Clement Chloride [Moles/Vol] 104 mmol/L Normal 98-107 [facility] Comment on above: Performed By: #### B MP ####[facility] Lpsjsacbsj6[address] [place] [address]Dr. Abiel Clement CO2 [Moles/Vol] 27.6 mmol/L Normal 21.0-32.0 [facility] Comment on above: Performed By: #### B MP ####[facility] Mvewefbtuo[address] [place], [place] [address]Dr. Abiel Clement Creatinine [Mass/Vol] 0.89 mg/dL Normal 0.55-1.02 [facility] Comment on above: Performed By: #### B MP ####[facility] Tjzwnfbxwg[address] [place], [place] [address]Dr. Abiel Clement EGFR-AF JORDANIAN >60 Normal >=60 [facility] Comment on above: Performed By: #### B MP ####[facility] Cfwlzvreyv[address] [place], [place] [address]Dr. Abiel Clement EGFR-NON AF JORDANIAN >60 Normal >=60 [facility] Comment on above: Performed By: #### B MP ####[facility] Nczimmmgyp69[address] [place] [address]Dr. Abiel Clement Glucose [Mass/Vol] 83 mg/dL Normal 74-106 [facility] Comment on above: Performed By: #### B MP ####[facility] Refrswfemt[address] [place], [place] [address]Dr. Abiel Clement Potassium [Moles/Vol] 4.4 mmol/L Normal 3.5-5.1 [facility] Comment on above: Performed By: #### B MP ####[facility] Tktahzynww[address] [place], [place] [id number]. Abiel Clement Sodium [Moles/Vol] 139 mmol/L Normal 136-145 [facility] Comment on above: Performed By: #### B MP ####[facility] Nrzniynsei28[address] [place] [id number]. Suyapaviviana Urbano Urea nitrogen [Mass/Vol] 18.0 mg/dL Normal 7.0-18.0 [facility] Comment on above: Performed By: #### B MP ####[facility] Vljtuvlfwm[address] [place] [address]Dr. Abiel Clement Urea nitrogen/Creatinine [Mass ratio] 20.2 mg/mg Normal [facility] Comment on above: Performed By: #### B MP ####[facility] Thsdijmexo[address] [place], [place] [address]Dr. Abiel Clement CT CSPINE WO CONon 2 CT CSPINE WO CON Normal [facility] CT HEAD WO CONon 05-19-2022 CT HEAD WO CON Normal [facility] XR HIP RT 2 3V W PELVISon XR HIP RT 2 3V W PELVIS Normal [facility] CT FOOT RT WO CONon 05-13-20 CT FOOT RT WO CON Normal [facility] BLOOD CULTURE ID PANELon A. baumannii Not detected Normal NOT DETECTED [facility] Comment on above: Performed By: #### B CID2 ####[facility] Uks[address]vzwhq[address] [place] [address]Dr. Abiel Clement Bacteriodes fragilis Not detected Normal NOT DETECTED [facility] Comment on above: Performed By: #### B CID2 ####[facility] Frjsykjeuy20[address] [place] [address]Dr. Abiel Clement BCID CONTROLS PASSED Normal [facility] Comment on above: Performed By: #### B CID2 ####[facility] Xwrrbfigpz45[address] [place] [address]Dr. Abiel Clement BCIDBTHD BLOOD CULTURE BOTTLE INFORMATION Normal [facility] Comment on above: Performed By: #### B CID2 ####[facility] Xjfacsljxl0509 [place] [id number]. Yiviviana Clement BCIDHD1 ANTIMICROBIAL RESISTANCE GENES Normal [facility] Comment on above: Performed By: #### B CID2 ####[facility] Assvsrttwc8[address] [place] [address]Dr. Yiviviana Clement BCIDHD2 SEE BELOW Normal [facility] Comment on above: Result Comment: Note : Antimicrobial resitance can occur via multiple mechanisms. A Not Detected result for the [employer] antomicrobial resistance gene assays does not indicate antimicrobial susceptibility. Subculturing is required for species identification and susceptibility testing of isolates. Performed By: #### B CID2 ####[facility] Pehguijbq[address] [place], [place] [address]Dr. Yiviviana Clement BCIDHD3 Positive Normal [facility] Comment on above: Performed By: #### B CID2 ####[facility] Dypsrgnbhm[address] [place], [place] [address]Dr. Yiviviana Clement BCIDHD4 Negative Normal [facility] Comment on above: Performed By: #### B CID2 ####[facility] Otkyodgxht[address] [place], [place] [address]Dr. Yiviviana Clement BCIDHD5 YEAST Normal [facility] Comment on above: Performed By: #### B CID2 ####[facility] Mmmyrrlvlo[address] [place], [place] [address]Dr. Yiviviana Clement Bottle Set: Set 1 Normal [facility] Comment on above: Performed By: #### B CID2 ####[facility] Iabzbvewhx[address] [place], [place] [address]Dr. Yiviviana Clement Bottle: Aerobic Normal [facility] Comment on above: Performed By: #### B CID2 ####[facility] Bclrjqqsid77[address] [place] [address]Dr. Yiviviana Clement C. neoformans/gattii Not detected Normal NOT DETECTED [facility] Comment on above: Performed By: #### B CID2 ####[facility] Pmdkhjivzk22[address] [place] [address]Dr. Yiviviana Clement Sakshi albicans Not detected Normal NOT DETECTED [facility] Comment on above: Performed By: #### B CID2 ####[facility] Kzzuwrzccr499[address] [place] [id number]. Yiviviana Clement Sakshi auris Not detected Normal NOT DETECTED [facility] Comment on above: Performed By: #### B CID2 ####[facility] Homqfunxxw6213 [place] [address]Dr. Yilan Clement Sakshi glabrata Not detected Normal NOT DETECTED [facility] Comment on above: Performed By: #### B CID2 ####[facility] Ltnrwulgmo5265 [place] [address]Dr. Yilan Clement Sakshi Krusei Not detected Normal NOT DETECTED [facility] Comment on above: Performed By: #### B CID2 ####[facility] Twcvjitnxu6[address] [place], [place] [address]Dr. Yiviviana Clement Sakshi Parapsilosis Not detected Normal NOT DETECTED [facility] Comment on above: Performed By: #### B CID2 ####[facility] Rbedpitpmd4033 [place] [address]Dr. Yiviviana Clement Sakshi Tropicalis Not detected Normal NOT DETECTED [facility] Comment on above: Performed By: #### B CID2 ####[facility] Fotxcbvqbs39[address] [place], [place] [address]Dr. Abiel Clement CTX-M Resistant Gene Not Applicable Normal NOT DETECTE D [facility] Comment on above: Performed By: #### B CID2 ####[facility] Dxfzozuxtt[address] [place], [place] [address]Dr. Yiviviana Clement E. Cloacae complex Not detected Normal NOT DETECTED [facility] Comment on above: Performed By: #### B CID2 ####[facility] Txwkxjlmtk5490 [place] [address]Dr. Yilan Clement E. faecalis Not detected Normal NOT DETECTED [facility] Comment on above: Performed By: #### B CID2 ####[facility] Mqfclkkgfm6772 [place] [address]Dr. Yiviviana Clement E. faecium Not detected Normal NOT DETECTED [facility] Comment on above: Performed By: #### B CID2 ####[facility] Xqbwerjdrd7058 [place] [address]Dr. Abiel Clement Enterobacteriaceae Not detected Normal NOT DETECTED [facility] Comment on above: Performed By: #### B CID2 ####[facility] Nyflgslapj7[address] [place], [place] [address]Dr. Abiel Clement Escherichia coli Not detected Normal NOT DETECTED [facility] Comment on above: Performed By: #### B CID2 ####[facility] Vfmwlkkqgo[address] [place], [place] [address]Dr. Abiel Clement H. influenzae Not detected Normal NOT DETECTED [facility] Comment on above: Performed By: #### B CID2 ####[facility] Rupfsdhbeh34[address] [place], [place] [address]Dr. Abiel Clement IMP Resistant Gene Not Applicable Normal NOT DETECTED [facility] Comment on above: Performed By: #### B CID2 ####[facility] Awqjsgmpji919[address] [place], [place] [address]Dr. Abiel Clement K. oxytoca Not detected Normal NOT DETECTED [facility] Comment on above: Performed By: #### B CID2 ####[facility] Urceugotvz[address] [place], [place] [address]Dr. Abiel Clement K. pneumoniae Not detected Normal NOT DETECTED [facility] Comment on above: Performed By: #### B CID2 ####[facility] Sgacwrrmoj[address] [place], [place] [address]Dr. Abiel Clement Klebsiella aerogenes Not detected Normal NOT DETECTED [facility] Comment on above: Performed By: #### B CID2 ####[facility] Vjfzsyufty23[address] [place], [place] [address]Dr. Abiel Clement KPC Resistant Gene Not detected Normal NOT DETECTED [facility] Comment on above: Performed By: #### B CID2 ####[facility] Uhfaoivtav4627[address] [place], [place] [address]Dr. Abiel Clement List. monocytogenes Not detected Normal NOT DETECTED [facility] Comment on above: Performed By: #### B CID2 ####[facility] Joekltvcpx7[address] [place], [place] [address]Dr. Abiel Clement Mcr-1 Resistant Gene Not Applicable Normal NOT DETECTE D [facility] Comment on above: Performed By: #### B CID2 ####[facility] Hinckwdnqz[address] [place], [place] [address]Dr. Suyapaviviana Clement mecA/C Not Applicable Normal NOT DETECTED [facility] Comment on above: Performed By: #### B CID2 ####[facility] Vhfncaqgix13[address] [place], [place] [address]Dr. Suyapaviviana Urbano mecA/C MREJ Not Applicable Normal NOT DETECTED [facility] Comment on above: Performed By: #### B CID2 ####[facility] Fsgrvhaiko[address] [place], [place] [address]Dr. Abiel Clement N. meningitidis Not detected Normal NOT DETECTED [facility] Comment on above: Performed By: #### B CID2 ####[facility] Tfgmindgqs507[address] [place], [place] [address]Dr. Abiel Clement NDM Resistant Gene Not Applicable Normal NOT DETECTED [facility] Comment on above: Performed By: #### B CID2 ####[facility] Ygbzvitsft6414[address] [place], [place] [address]Dr. Abiel Clement Oxa-48-like Not Applicable Normal NOT DETECTED [facility] Comment on above: Performed By: #### B CID2 ####[facility] Elivscbwpk1801[address] [place], [place] [address]Dr. Abiel Clement Proteus Not detected Normal NOT DETECTED [facility] Comment on above: Performed By: #### B CID2 ####[facility] Hsnilnfxxw4312[address] [place], [place] [address]Dr. Abiel Clement Pseud. aeruginosa Not detected Normal NOT DETECTED [facility] Comment on above: Performed By: #### B CID2 ####[facility] Iiycbumqgs[address] [place], [place] [address]Dr. Abiel Clement S. maltophilia Not detected Normal NOT DETECTED [facility] Comment on above: Performed By: #### B CID2 ####[facility] Ztfwppybkn60[address] [place], [place] [address]Dr. Abiel Clement Salmonella Not detected Normal NOT DETECTED [facility] Comment on above: Performed By: #### B CID2 ####[facility] Bwooduyyoq40[address] [place] [address]Dr. Abiel Clement Seratia marcescens Not detected Normal NOT DETECTED [facility] Comment on above: Performed By: #### B CID2 ####[facility] Feiuwefyyx6376 [place] [address]Dr. Abiel Clement Site: R A/c Normal [facility] Comment on above: Performed By: #### B CID2 ####[facility] Fmppgzeazo89[address] [place], [place] [address]Dr. Abiel Clement Staph. aureus Not detected Normal NOT DETECTED [facility] Comment on above: Performed By: #### B CID2 ####[facility] Kylqtsbdho557[address] [place], [place] [address]Dr. Abiel Clement Staph. epidermidis Not detected Normal NOT DETECTED [facility] Comment on above: Performed By: #### B CID2 ####[facility] Lhjecjncvs[address] [place], [place] [address]Dr. Abiel Clement Staph. lugdunensis Not detected Normal NOT DETECTED [facility] Comment on above: Performed By: #### B CID2 ####[facility] Fhsnciuciy0426[address] [place], [place] [address]Dr. Abiel Clement Staphylococcus Not detected Normal NOT DETECTED [facility] Comment on above: Performed By: #### B CID2 ####[facility] Dhwagtsryb23[address] [place], [place] [address]Dr. Abiel Clement Strep. agalactiae Not detected Normal NOT DETECTED [facility] Comment on above: Performed By: #### B CID2 ####[facility] Yjqlifsozl911[address] [place], [place] [address]Dr. Abiel Clement Strep. pneumoniae Not detected Normal NOT DETECTED [facility] Comment on above: Performed By: #### B CID2 ####[facility] Ppsjpfucsh[address] [place], [place] [address]Dr. Abiel Clement Strep. pyogenes Not detected Normal NOT DETECTED [facility] Comment on above: Performed By: #### B CID2 ####[facility] Asqosjvnuf88[address] [place], [place] [address]Dr. Abiel Clement Streptococcus Detected Abnormal NOT DETECTED [facility] Comment on above: Performed By: #### B CID2 ####[facility] Mvedmohsvd9567[address] [place], [place] [address]Dr. Abiel Clement Jarvis/B Resist. Gene Not detected Normal NOT DETECTED [facility] Comment on above: Performed By: #### B CID2 ####[facility] Iefqyblxsv216[address] [place], [place] [address]Dr. Abiel Clement VIM Resistant Gene Not Applicable Normal NOT DETECTED [facility] Comment on above: Performed By: #### B CID2 ####[facility] Bmyfqgmpag205[address] [place], [place] [address]Dr. Abiel Clement BNPon 04-30-2022 Natriuretic peptide B (Bld) [Mass/Vol] 127.0 pg/mL Normal <=900.0 [facility] Comment on above: Performed By: #### B CLEAN ROOM ASSEMBLER, CMP, HSTROPN ####[facility] Oytxqitxcm628[address] [place], [place] [address]Dr. Abiel Clement CBC AUTO DIFFon 04-30-2022 BASO # 0.1 103/ul Normal 0.0-0.1 [facility] Comment on above: Performed By: #### C BC ####[facility] Utzcqhkqzb17[address] [place], [place] [address]Dr. Abiel Clement Basophils/100 WBC (Bld) 0.6 % Normal 0.2-2.0 [facility] Comment on above: Performed By: #### C BC ####[facility] Hlhaotfrcv[address] [place], [place] [address]Dr. Abiel Clement EO # 0.3 103/ul Normal 0.0-0.7 [facility] Comment on above: Performed By: #### C BC ####[facility] Cuxdngftoa[address] [place], [place] [address]Dr. Abiel Clement Eosinophils/100 WBC (Bld) 2.8 % Normal 0.9-7.0 [facility] Comment on above: Performed By: #### C BC ####[facility] Szfjuyeimw77[address] [place] [address]Dr. Abiel Clement Erythrocyte distribution width (RBC) [Ratio] 12.9 % Normal 11.0-15.0 [facility] Comment on above: Performed By: #### C BC ####[facility] Mgiysoeexw[address] [place], [place] [address]Dr. Abiel Clement Hematocrit (Bld) [Volume fraction] 38.7 % Normal 36.0-48.0 [facility] Comment on above: Performed By: #### C BC ####[facility] Bmrbbsfuba74[address] [place], [place] [address]Dr. Abiel Clement Hemoglobin (Bld) [Mass/Vol] 12.5 g/dL Normal 12.0-16.0 [facility] Comment on above: Performed By: #### C BC ####[facility] Wtwyxmjajb[address] [place], [place] [address]Dr. Abiel Clement IG # 0.03 10e3/ul Normal 0.00-0.03 [facility] Comment on above: Performed By: #### C BC ####[facility] Iobgnntclx138[address] [place], [place] [address]Dr. Abiel Clement IG % 0.3 % Normal 0.0-0.5 [facility] Comment on above: Performed By: #### C BC ####[facility] Pyxrbrilre66[address] [place], [place] [address]Dr. Abiel Clement LYMPH # 1.6 103/ul Normal 1.2-3.8 [facility] Comment on above: Performed By: #### C BC ####[facility] Iqpbzzqzue[address] [place], [place] [address]Dr. Abiel Clement Lymphocytes/100 WBC (Bld) 15.0 % Critically low 20.5-60.0 [facility] Comment on above: Performed By: #### C BC ####[facility] Mbtpwwpzll[address] [place], [place] [address]Dr. Abiel Clement MANUAL DIFF REQ NO Normal [facility] Comment on above: Performed By: #### C BC ####[facility] Hpqgslogmz7[address] [place] [id number]. Abiel Urbano MCH (RBC) [Entitic mass] 28.9 pg Normal 26.7-34.0 [facility] Comment on above: Performed By: #### C BC ####[facility] Zxmtlzdzco[address] [place] [id number]. Abiel Urbano MCHC (RBC) [Mass/Vol] 32.3 g/dL Normal 29.9-35.2 [facility] Comment on above: Performed By: #### C BC ####[facility] Xxkbisdkcp4442 [place] [id number]. Abiel Urbano MCV (RBC) [Entitic vol] 89.6 fL Normal 81.0-99.0 [facility] Comment on above: Performed By: #### C BC ####[facility] Wqewipcwfd[address] [place], [place] [address]Dr. Abiel Clement MONO # 0.8 103/ul Normal 0.3-0.8 [facility] Comment on above: Performed By: #### C BC ####[facility] Zpfusrimge[address] [place], [place] [address]Dr. Suyapaviviana Clement Monocytes/100 WBC (Bld) 7.2 % Normal 1.7-12.0 [facility] Comment on above: Performed By: #### C BC ####[facility] Bt[address]jledc[address] [place], [place] [id number]. Suyapaviviana Clement NEUT # 7.9 103/ul Critically high 1.4-6.5 [facility] Comment on above: Performed By: #### C BC ####[facility] Gbblqpvgta[address] [place], [place] [address]Dr. Abiel Clement Neutrophils/100 WBC (Bld) 74.1 % Normal 43.0-75.0 [facility] Comment on above: Performed By: #### C BC ####[facility] Fucknlxlxr[address] [place] [id number]. Abiel Clement Platelet mean volume (Bld) [Entitic vol] 10.9 fL Normal 9.5-13.5 [facility] Comment on above: Performed By: #### C BC ####[facility] [address]xx[address] [place], [place] [address]Ta. Abiel Clement PLT 308 103/ul Normal 150-450 [facility] Comment on above: Performed By: #### C BC ####[facility] Mmirooloxm67[address] [place], [place] [address]Mt. Abiel Clement RBC 4.32 106/ul Normal 4.20-5.40 [facility] Comment on above: Performed By: #### C BC ####[facility] Izxapjilbf8467 [place], [place] [address]Wo. Abiel Clement WBC 10.6 103/ul Normal 4.0-11.0 [facility] Comment on above: Performed By: #### C BC ####[facility] K[address]fqgcbyx[address] [place], [place] [address]Ms. Abiel Clement Covid-19 PCR (CVDTB)on 04-06 SARS-CoV-2 (COVID-19) RNA CLARIBEL+probe Ql (Unsp spec) Not detected Normal NOT DETECTED [facility] Comment on above: Result Comment: When diagnostic testing is negative, the possibility of a false negative should be considered inthe context of a patient's recent exposures and the presence of clinical signs and symptomsconsistent with SARS-CoV-2.This test is not yet approved or cleared by the [place] FDA. When there are no FDA-approved or cleared tests available, and other criteria are met, FDA can make tests available under an emergency access mechanism called an Emergency Use Authorization (EUA). The EUA for this test is supported by the [employer] of Health and Human Service's declaration that circumstances exist to justify the emergency use of in vitro diagnostics for the detection and/or diagnosis of the virus that causes COVID-19. This EUA will remain in effect for the duration of the COVID-19 declaration justifying emergency of IVDs, unless it is terminated or revoked by the FDA (after which the test may no longer be used). Performed By: #### C VDTBH ####[facility] Hed[address]tsx[address] [place] [id number]. Abiel Clement LACTATE/LACTIC ACIDon 2021 Lactate [Moles/Vol] 2.3 mmol/L Critically high 0.4-1.9 [facility] Comment on above: Performed By: #### L ACT ####[facility] C[address]we[address] [place] [address]Dr. Abiel Clement Lactate [Moles/Vol] 3.3 mmol/L Critically high 0.4-1.9 [facility] Comment on above: Performed By: #### L ACT ####[facility] Iqaisvbbmv[address] [place] [address]Dr. Abiel Clement PROF 14(COMP METB)on 022 Albumin [Mass/Vol] 3.0 g/dL Critically low 3.4-5.0 [facility] Comment on above: Performed By: #### B CLEAN ROOM ASSEMBLER, CMP, HSTROPN ####[facility] V[address] [place], [place] [address]Dr. Abiel Clement Albumin/Globulin [Mass ratio] 0.7 {ratio} Normal [facility] Comment on above: Performed By: #### B CLEAN ROOM ASSEMBLER, CMP, HSTROPN ####[facility] [address] [place], [place] [address]Dr. Abiel Clement ALP [Catalytic activity/Vol] 218 U/L Critically high 46-116 [facility] Comment on above: Performed By: #### B CLEAN ROOM ASSEMBLER, CMP, HSTROPN ####[facility] Hpxljqaocm24[address] [place] [address]Dr. Abiel Clement ALT [Catalytic activity/Vol] 29 U/L Normal 14-59 [facility] Comment on above: Performed By: #### B CLEAN ROOM ASSEMBLER, CMP, HSTROPN ####[facility] Jowfceownb5[address] [place] [address]Dr. Abiel Clement Anion gap [Moles/Vol] 14.3 mmol/L Normal [facility] Comment on above: Performed By: #### B CLEAN ROOM ASSEMBLER, CMP, HSTROPN ####[facility] Fvuzxakupr38[address] [place] [address]Dr. Abiel Clement AST [Catalytic activity/Vol] 20 U/L Normal 15-37 [facility] Comment on above: Performed By: #### B CLEAN ROOM ASSEMBLER, CMP, HSTROPN ####[facility] Tbetjrufjq[address]63 [place] [address]Dr. Abiel Clement Bilirubin [Mass/Vol] 0.3 mg/dL Normal 0.2-1.0 [facility] Comment on above: Performed By: #### B CLEAN ROOM ASSEMBLER, CMP, HSTROPN ####[facility] Pttqdixzzh13[address] [place] [address]Dr. Abiel Clement Calcium [Mass/Vol] 9.2 mg/dL Normal 8.5-10.1 [facility] Comment on above: Performed By: #### B CLEAN ROOM ASSEMBLER, CMP, HSTROPN ####[facility] Islfuzcyze[address] [place], [place] [address]Dr. Abiel Clement Chloride [Moles/Vol] 98 mmol/L Normal 98-107 [facility] Comment on above: Performed By: #### B CLEAN ROOM ASSEMBLER, CMP, HSTROPN ####[facility] Rqfks[address] [place], [place] [address]Dr. Abiel Clement CO2 [Moles/Vol] 26.5 mmol/L Normal 21.0-32.0 [facility] Comment on above: Performed By: #### B CLEAN ROOM ASSEMBLER, CMP, HSTROPN ####[facility] Wniqtrbukh35[address] [place] [address]Dr. Abiel Clement Creatinine [Mass/Vol] 1.10 mg/dL Critically high 0.55-1.02 [facility] Comment on above: Performed By: #### B CLEAN ROOM ASSEMBLER, CMP, HSTROPN ####[facility] Ebanrkluyb[address] [place] [address]Dr. Abiel Clement EGFR-AF JORDANIAN >60 Normal >=60 [facility] Comment on above: Performed By: #### B CLEAN ROOM ASSEMBLER, CMP, HSTROPN ####[facility] Oiqocebiat[address] [place], [place] [address]Dr. Suyapaviviana Clement EGFR-NON AF JORDANIAN 50 mL/min/1.73m2 Critically low >=60 [facility] Comment on above: Performed By: #### B CLEAN ROOM ASSEMBLER, CMP, HSTROPN ####[facility] Iiphnzxhhg8805 [place] [address]Dr. Abiel Clement Globulin (S) [Mass/Vol] 4.3 g/dL Normal [facility] Comment on above: Performed By: #### B CLEAN ROOM ASSEMBLER, CMP, HSTROPN ####[facility] Zbufzciscy4512 [place] [address]Dr. Abiel Clement Glucose [Mass/Vol] 338 mg/dL Critically high 74-106 [facility] Comment on above: Performed By: #### B CLEAN ROOM ASSEMBLER, CMP, HSTROPN ####[facility] Xwkq[address]rqfa[address] [place], [place] [address]Dr. Abiel Clement Potassium [Moles/Vol] 3.8 mmol/L Normal 3.5-5.1 [facility] Comment on above: Performed By: #### B CLEAN ROOM ASSEMBLER, CMP, HSTROPN ####[facility] Ks[address] [place], [place] [address]Dr. Abiel Clement Protein [Mass/Vol] 7.3 g/dL Normal 6.4-8.2 [facility] Comment on above: Performed By: #### B CLEAN ROOM ASSEMBLER, CMP, HSTROPN ####[facility] Lidugojm[address] [place], [place] [address]Dr. Abiel Clement Sodium [Moles/Vol] 135 mmol/L Critically low 136-145 [facility] Comment on above: Performed By: #### B CLEAN ROOM ASSEMBLER, CMP, HSTROPN ####[facility] Hgmfdkoqdl[address] [place], [place] [address]Dr. Abiel Clement Urea nitrogen [Mass/Vol] 23.0 mg/dL Critically high 7.0-18.0 [facility] Comment on above: Performed By: #### B CLEAN ROOM ASSEMBLER, CMP, HSTROPN ####[facility] Qtyglghyum[address] [place], [place] [address]Dr. Abiel Clement Urea nitrogen/Creatinine [Mass ratio] 20.9 mg/mg Normal [facility] Comment on above: Performed By: #### B CLEAN ROOM ASSEMBLER, CMP, HSTROPN ####[facility] Rhwmtwpvbg7937 [place] [id number]. Abiel Clement TROPONIN, HIGH SENSITIVITYon 04-30-2022 HSTROP 3.8 pg/mL Critically low 4.0-51.[address] [facility] Comment on above: Result Comment: CUT- OFF POINTS HAVE BEEN ESTABLISHED BASED ON THE FOURTH UNIVERSAL DEFINITIONS OF MYOCARDIALINFARCTION. THE UPPER REFERENCE LIMIT (URL) OF TROPONIN, DEFINED THE 99TH PERCENTILE OFcTnI DISTRIBUTION IN A REFERENCE POPULATION, HAS BEEN CONFIRMED THE DECISION THRESHOLDFOR MD DIAGNOSIS. Performed By: #### H STROPN ####[facility] K[address]uknhat[address] [place] [address]Dr. Abiel Clement HSTROP 4.0 pg/mL Normal 4.0-51.3 [facility] Comment on above: Result Comment: CUT- OFF POINTS HAVE BEEN ESTABLISHED BASED ON THE FOURTH UNIVERSAL DEFINITIONS OF MYOCARDIALINFARCTION. THE UPPER REFERENCE LIMIT (URL) OF TROPONIN, DEFINED THE 99TH PERCENTILE OFcTnI DISTRIBUTION IN A REFERENCE POPULATION, HAS BEEN CONFIRMED THE DECISION THRESHOLDFOR MD DIAGNOSIS. Performed By: #### B CLEAN ROOM ASSEMBLER, CMP, HSTROPN ####[facility] Feipwh[address]hyk[address] [place] [address]Dr. Abiel Clement XR CHEST 1 Von 04-30-2022 XR CHEST 1 V Normal [facility] BNPon 03-15-2022 Natriuretic peptide B (Bld) [Mass/Vol] 2586.0 pg/mL Critically high <=900.0 [facility] Comment on above: Result Comment: repe ated Performed By: #### C MP, BNP, HSTROPN ####[facility] Fqxusanmtq[address] [place] [id number]. Abiel Clement CBC AUTO DIFFon 03-15-2022 BASO # 0.0 103/ul Normal 0.0-0.1 [facility] Comment on above: Performed By: #### C BC ####[facility] Lwbzqmcciq8[address] [place] [address]Dr. Abiel Clement Basophils/100 WBC (Bld) 0.4 % Normal 0.2-2.0 [facility] Comment on above: Performed By: #### C BC ####[facility] Jstshsvhfn4870 [place] [address]Dr. Abiel Clement EO # 0.1 103/ul Normal 0.0-0.7 [facility] Comment on above: Performed By: #### C BC ####[facility] Zuoztudqrm6106 [place] [address]Dr. Abiel Clement Eosinophils/100 WBC (Bld) 1.8 % Normal 0.9-7.0 [facility] Comment on above: Performed By: #### C BC ####[facility] Edmmiaflto[address] [place], [place] [address]Dr. Abiel Clement Erythrocyte distribution width (RBC) [Ratio] 13.7 % Normal 11.0-15.0 [facility] Comment on above: Performed By: #### C BC ####[facility] W[address] [place], [place] [address]Dr. Abiel Clement Hematocrit (Bld) [Volume fraction] 29.7 % Critically low 36.0-48.0 [facility] Comment on above: Performed By: #### C BC ####[facility] E[address]zk[address]ca[address] [place], [place] [address]Dr. Abiel Clement Hemoglobin (Bld) [Mass/Vol] 9.5 g/dL Critically low 12.0-16.0 [facility] Comment on above: Performed By: #### C BC ####[facility] [address]os[address] [place], [place] [address]Dr. Abiel Clement IG # 0.02 10e3/ul Normal 0.00-0.03 [facility] Comment on above: Performed By: #### C BC ####[facility] Ikdgrniwbu[address] [place], [place] [address]Dr. Abiel Clement IG % 0.3 % Normal 0.0-0.5 [facility] Comment on above: Performed By: #### C BC ####[facility] Slfud[address]vxu[address] [place], [place] [address]Dr. Suyapaviviana Clement LYMPH # 1.6 103/ul Normal 1.2-3.8 [facility] Comment on above: Performed By: #### C BC ####[facility] [address]ububqho[address] [place] [id number]. Abiel Urbano Lymphocytes/100 WBC (Bld) 20.1 % Critically low 20.5-60.0 [facility] Comment on above: Performed By: #### C BC ####[facility] Lnwcquraec7[address] [place] [id number]. Abiel Clement MANUAL DIFF REQ NO Normal [facility] Comment on above: Performed By: #### C BC ####[facility] Mifaxmtluo[address] [place] [id number]. Abiel Clement MCH (RBC) [Entitic mass] 29.6 pg Normal 26.7-34.0 [facility] Comment on above: Performed By: #### C BC ####[facility] Zwqmx[address] [place], [place] [address]Dr. Abiel Clement MCHC (RBC) [Mass/Vol] 32.0 g/dL Normal 29.9-35.2 [facility] Comment on above: Performed By: #### C BC ####[facility] Xhfppkgfmx2591 [place] [id number]. Abiel Clement MCV (RBC) [Entitic vol] 92.5 fL Normal 81.0-99.0 [facility] Comment on above: Performed By: #### C BC ####[facility] J[address] [place], [place] [address]Dr. Abiel Clement MONO # 0.6 103/ul Normal 0.3-0.8 [facility] Comment on above: Performed By: #### C BC ####[facility] Ucipxgooum4990 [place] [id number]. Abiel Clement Monocytes/100 WBC (Bld) 7.1 % Normal 1.7-12.0 [facility] Comment on above: Performed By: #### C BC ####[facility] [address]ib[address]be[address] [place], [place] [address]Dr. Abiel Clement NEUT # 5.5 103/ul Normal 1.4-6.5 [facility] Comment on above: Performed By: #### C BC ####[facility] Kzxedfhhhw16[address] [place] [address]Dr. Suyapaviviana Clement Neutrophils/100 WBC (Bld) 70.3 % Normal 43.0-75.0 [facility] Comment on above: Performed By: #### C BC ####[facility] Zczyyltuci0191 [place] [address]Dr. Abiel Clement Platelet mean volume (Bld) [Entitic vol] 10.5 fL Normal 9.5-13.5 [facility] Comment on above: Performed By: #### C BC ####[facility] Tqpgpoyycg7[address] [place] [address]Dr. Abiel Clement PLT 250 103/ul Normal 150-450 [facility] Comment on above: Performed By: #### C BC ####[facility] Fxybszlkxr2769 [place] [address]Dr. Abiel Clement RBC 3.21 106/ul Critically low 4.20-5.40 [facility] Comment on above: Performed By: #### C BC ####[facility] Iwlhgbuvde[address] [place] [address]Dr. Abiel Clement WBC 7.9 103/ul Normal 4.0-11.0 [facility] Comment on above: Performed By: #### C BC ####[facility] Tvwdvprgar2417 [place] [address]DrKasia Clement PROF 14(COMP METB)on 022 Albumin [Mass/Vol] 2.2 g/dL Critically low 3.4-5.0 [facility] Comment on above: Performed By: #### C MP, BNP, HSTROPN ####[facility] Bhgxvsrxdu2895 [place] [address]Dr. Abiel Clement Albumin/Globulin [Mass ratio] 0.6 {ratio} Normal [facility] Comment on above: Performed By: #### C MP, BNP, HSTROPN ####[facility] Tqzsixrvfk8381 [place] [address]Dr. Abiel Clement ALP [Catalytic activity/Vol] 112 U/L Normal 46-116 [facility] Comment on above: Performed By: #### C MP, BNP, HSTROPN ####[facility] Bhvhqycfrr1689 [place] [address]Dr. Abiel Clement ALT [Catalytic activity/Vol] 19 U/L Normal 14-59 [facility] Comment on above: Performed By: #### C MP, BNP, HSTROPN ####[facility] Kdhcschwsp9473 [place] [address]Dr. Abiel Clement Anion gap [Moles/Vol] 12.2 mmol/L Normal [facility] Comment on above: Performed By: #### C MP, BNP, HSTROPN ####[facility] [address] [place], [place] [address]Dr. Abiel Clement AST [Catalytic activity/Vol] 15 U/L Normal 15-37 [facility] Comment on above: Performed By: #### C MP, BNP, HSTROPN ####[facility] [address]usiglmdc[address] [place], [place] [address]Dr. Abiel Clement Bilirubin [Mass/Vol] 0.3 mg/dL Normal 0.2-1.0 [facility] Comment on above: Performed By: #### C MP, BNP, HSTROPN ####[facility] Fu[address]blhpzu[address] [place], [place] [address]Dr. Abiel Clement Calcium [Mass/Vol] 8.6 mg/dL Normal 8.5-10.1 [facility] Comment on above: Performed By: #### C MP, BNP, HSTROPN ####[facility] Jetrxbafoz4[address] [place] [address]Dr. Abiel Clement Chloride [Moles/Vol] 104 mmol/L Normal 98-107 [facility] Comment on above: Performed By: #### C MP, BNP, HSTROPN ####[facility] Yymwdzkeic2121 [place] [address]Dr. Abiel Clement CO2 [Moles/Vol] 25.3 mmol/L Normal 21.0-32.0 [facility] Comment on above: Performed By: #### C MP, BNP, HSTROPN ####[facility] Yjcvlrfeep9022 [place] [address]Dr. Abiel Clement Creatinine [Mass/Vol] 0.98 mg/dL Normal 0.55-1.02 [facility] Comment on above: Performed By: #### C MP, BNP, HSTROPN ####[facility] Hicoqeyxgy4[address] [place] [address]Dr. Abiel Clement EGFR-AF JORDANIAN >60 Normal >=60 [facility] Comment on above: Performed By: #### C MP, BNP, HSTROPN ####[facility] Hmqfrronyi6301 [place] [address]Dr. Abiel Clement EGFR-NON AF JORDANIAN 58 mL/min/1.73m2 Critically low >=60 [facility] Comment on above: Performed By: #### C MP, BNP, HSTROPN ####[facility] Mdypowbirh[address] [place], [place] [address]Dr. Abiel Clement Globulin (S) [Mass/Vol] 3.7 g/dL Normal [facility] Comment on above: Performed By: #### C MP, BNP, HSTROPN ####[facility] Jgkhmicvww[address] [place], [place] [address]Dr. Abiel Clement Glucose [Mass/Vol] 279 mg/dL Critically high 74-106 [facility] Comment on above: Performed By: #### C MP, BNP, HSTROPN ####[facility] Cwyj[address]dpeg[address] [place], [place] [address]Dr. Abiel Clement Potassium [Moles/Vol] 3.5 mmol/L Normal 3.5-5.1 [facility] Comment on above: Performed By: #### C MP, BNP, HSTROPN ####[facility] Vdwalzfmqe[address] [place], [place] [address]Dr. Abiel Clement Protein [Mass/Vol] 5.9 g/dL Critically low 6.4-8.2 [facility] Comment on above: Performed By: #### C MP, BNP, HSTROPN ####[facility] Flpwsnoryu9785 [place] [id number]. Abiel Clement Sodium [Moles/Vol] 138 mmol/L Normal 136-145 [facility] Comment on above: Performed By: #### C MP, BNP, HSTROPN ####[facility] Xgmbcjjgvm0949 [place] [address]Dr. Abiel lCement Urea nitrogen [Mass/Vol] 23.0 mg/dL Critically high 7.0-18.0 [facility] Comment on above: Performed By: #### C MP, BNP, HSTROPN ####[facility] Wldhwphkza7498 [place] [address]Dr. Abiel Clement Urea nitrogen/Creatinine [Mass ratio] 23.5 mg/mg Normal [facility] Comment on above: Performed By: #### C MP, BNP, HSTROPN ####[facility] Lwcnkx[address] [place], [place] [address]Dr. Abiel Clement TROPONIN, HIGH SENSITIVITYon 03-15-2022 HSTROP 9.0 pg/mL Normal 4.0-51.3 [facility] Comment on above: Result Comment: CUT- OFF POINTS HAVE BEEN ESTABLISHED BASED ON THE FOURTH UNIVERSAL DEFINITIONS OF MYOCARDIALINFARCTION. THE UPPER REFERENCE LIMIT (URL) OF TROPONIN, DEFINED THE 99TH PERCENTILE OFcTnI DISTRIBUTION IN A REFERENCE POPULATION, HAS BEEN CONFIRMED THE DECISION THRESHOLDFOR MD DIAGNOSIS. Performed By: #### C MP, BNP, HSTROPN ####[facility] O[address]zsn18[address] [place] [address]Dr. Abiel Clement BNPon 03-14-2022 Natriuretic peptide B (Bld) [Mass/Vol] 3438.0 pg/mL Critically high <=900.0 [facility] Comment on above: Performed By: #### H STROPN, BNP, CMP ####[facility] Uvpmcsjryd9208 [place] [address]Dr. Abiel Clement CBC AUTO DIFFon 03-14-2022 BASO # 0.0 103/ul Normal 0.0-0.1 [facility] Comment on above: Performed By: #### C BC ####[facility] Amvadznvem50[address] [place] [id number]. Abiel Clement Basophils/100 WBC (Bld) 0.4 % Normal 0.2-2.0 [facility] Comment on above: Performed By: #### C BC ####[facility] Sffcksseus1109 [place] [id number]. Abiel Clement EO # 0.1 103/ul Normal 0.0-0.7 [facility] Comment on above: Performed By: #### C BC ####[facility] V[address] [place], [place] [id number]. Abiel Clement Eosinophils/100 WBC (Bld) 0.9 % Normal 0.9-7.0 [facility] Comment on above: Performed By: #### C BC ####[facility] [address]ymfw[address] [place], [place] [address]Dr. Abiel Clement Erythrocyte distribution width (RBC) [Ratio] 13.5 % Normal 11.0-15.0 [facility] Comment on above: Performed By: #### C BC ####[facility] Aqmdqcglyb0849 [place] [id number]. Abiel Clement Hematocrit (Bld) [Volume fraction] 29.5 % Critically low 36.0-48.0 [facility] Comment on above: Performed By: #### C BC ####[facility] Oeesmcocon6102 [place] [id number]. Abiel Clement Hemoglobin (Bld) [Mass/Vol] 9.3 g/dL Critically low 12.0-16.0 [facility] Comment on above: Performed By: #### C BC ####[facility] Xjqjpwbrvo5324 [place] [id number]. Abiel Clement IG # 0.07 10e3/ul Critically high 0.00-0.03 [facility] Comment on above: Performed By: #### C BC ####[facility] [address] [place], [place] [address]Dr. Abiel Clement IG % 0.7 % Critically high 0.0-0.5 [facility] Comment on above: Performed By: #### C BC ####[facility] Bkvdxtvnpw5723 [place] [id number]. Abiel Clement LYMPH # 1.7 103/ul Normal 1.2-3.8 [facility] Comment on above: Performed By: #### C BC ####[facility] Dbzuhstgks3859 [place], [place] [address]Hl. Abiel Urbano Lymphocytes/100 WBC (Bld) 17.0 % Critically low 20.5-60.0 [facility] Comment on above: Performed By: #### C BC ####[facility] Ntmavwxaer50[address] [place] [id number]. Abiel Urbano MANUAL DIFF REQ NO Normal [facility] Comment on above: Performed By: #### C BC ####[facility] Nuaqtlaxhy1583 [place] [id number]. Abiel Urbano MCH (RBC) [Entitic mass] 29.2 pg Normal 26.7-34.0 [facility] Comment on above: Performed By: #### C BC ####[facility] Wcbkhvjzla1226 [place] [id number]. Abiel Clement MCHC (RBC) [Mass/Vol] 31.5 g/dL Normal 29.9-35.2 [facility] Comment on above: Performed By: #### C BC ####[facility] Mllcitghut8022 [place] [id number]. Abiel Urbano MCV (RBC) [Entitic vol] 92.5 fL Normal 81.0-99.0 [facility] Comment on above: Performed By: #### C BC ####[facility] Raglctarey2568 [place] [id number]. Abiel Clement MONO # 0.9 103/ul Critically high 0.3-0.8 [facility] Comment on above: Performed By: #### C BC ####[facility] Fukypowccz4203 [place] [id number]. Abiel Urbano Monocytes/100 WBC (Bld) 9.1 % Normal 1.7-12.0 [facility] Comment on above: Performed By: #### C BC ####[facility] Dfrdadwtjr0801 [place] [id number]. Abiel Clement NEUT # 7.3 103/ul Critically high 1.4-6.5 [facility] Comment on above: Performed By: #### C BC ####[facility] Fkeublvzhm4546 [place] [id number]. Abiel Clement Neutrophils/100 WBC (Bld) 71.9 % Normal 43.0-75.0 [facility] Comment on above: Performed By: #### C BC ####[facility] Ktzrodbtbk5492 [place] [address]Dr. Abiel Clement Platelet mean volume (Bld) [Entitic vol] 11.0 fL Normal 9.5-13.5 [facility] Comment on above: Performed By: #### C BC ####[facility] Oosqkybdcc3018 [place] [address]Dr. Abiel Clement PLT 232 103/ul Normal 150-450 [facility] Comment on above: Performed By: #### C BC ####[facility] Ifqjyvpiok5039 [place] [id number]. Abiel Clement RBC 3.19 106/ul Critically low 4.20-5.40 [facility] Comment on above: Performed By: #### C BC ####[facility] Vhfexxafnn5907 [place] [id number]. Abiel Clement WBC 10.1 103/ul Normal 4.0-11.0 [facility] Comment on above: Performed By: #### C BC ####[facility] Qeaepzdumi9428 [place] [id number]. Abiel Clement POINT OF CARE GLUCOSEon 03-05 0-2021 Glucose [Mass/Vol] 141 mg/dL Critically high 74-106 [facility] Comment on above: Performed By: #### P OCGLUC ####[facility] Mkkremvosf8919 [place] [id number]. Abiel Clement Glucose [Mass/Vol] 182 mg/dL Critically high 74-106 [facility] Comment on above: Performed By: #### P OCGLUC ####[facility] Agwuzweiqn7262 [place] [address]Dr. Abiel Clement Glucose [Mass/Vol] 235 mg/dL Critically high 74-106 [facility] Comment on above: Performed By: #### P OCGLUC ####[facility] Bafbtqfypf66[address] [place] [address]Dr. Abiel Clement Glucose [Mass/Vol] 246 mg/dL Critically high 74-106 [facility] Comment on above: Performed By: #### P OCGLUC ####[facility] Erlqmkuukv7274 [place] [address]Dr. Abiel Clement Glucose [Mass/Vol] 256 mg/dL Critically high -106 [facility] Comment on above: Performed By: #### P OCGLUC ####[facility] Lupjsulter28[address] [place] [address]Dr. Abiel Clement Glucose [Mass/Vol] 249 mg/dL Critically high -106 [facility] Comment on above: Performed By: #### P OCGLUC ####[facility] Deizzumpca6150 [place] [address]Dr. Abiel Clement PROF 14(COMP METB)on 022 Albumin [Mass/Vol] 2.2 g/dL Critically low 3.4-5.0 [facility] Comment on above: Performed By: #### H STROPN, BNP, CMP ####[facility] Botlktzeot220[address] [place] [address]Dr. Abiel Urbano Albumin/Globulin [Mass ratio] 0.6 {ratio} Normal [facility] Comment on above: Performed By: #### H STROPN, BNP, CMP ####[facility] Ckjkbtmjls8312 [place] [address]Dr. Abiel Urbano ALP [Catalytic activity/Vol] 114 U/L Normal 46-116 [facility] Comment on above: Performed By: #### H STROPN, BNP, CMP ####[facility] [address]azhat[address] [place] [address]Dr. Suyapaviviana Clement ALT [Catalytic activity/Vol] 20 U/L Normal 14-59 [facility] Comment on above: Performed By: #### H STROPN, BNP, CMP ####[facility] Xzdcezgwej[address] [place] [address]Dr. Abiel Clement Anion gap [Moles/Vol] 9.7 mmol/L Normal [facility] Comment on above: Performed By: #### H STROPN, BNP, CMP ####[facility] Eujkifukza[address] [place] [address]Dr. Abiel Clement AST [Catalytic activity/Vol] 18 U/L Normal 15-37 [facility] Comment on above: Performed By: #### H STROPN, BNP, CMP ####[facility] Iqxjhsvxrw[address] [place], [place] [address]Dr. Abiel Clement Bilirubin [Mass/Vol] 0.2 mg/dL Normal 0.2-1.0 [facility] Comment on above: Performed By: #### H STROPN, BNP, CMP ####[facility] Eivfzzyyqm[address] [place], [place] [address]Dr. Abiel Clement Calcium [Mass/Vol] 8.4 mg/dL Critically low 8.5-10.1 [facility] Comment on above: Performed By: #### H STROPN, BNP, CMP ####[facility] Rkuumapuf[address] [place], [place] [address]Dr. Abiel Clement Chloride [Moles/Vol] 105 mmol/L Normal 98-107 [facility] Comment on above: Performed By: #### H STROPN, BNP, CMP ####[facility] Sdevhyofnv[address] [place], [place] [address]Dr. Abiel Clement CO2 [Moles/Vol] 26.1 mmol/L Normal 21.0-32.0 [facility] Comment on above: Performed By: #### H STROPN, BNP, CMP ####[facility] Pmcoommvvv[address] [place], [place] [address]Dr. Abiel Clement Creatinine [Mass/Vol] 1.01 mg/dL Normal 0.55-1.02 [facility] Comment on above: Performed By: #### H STROPN, BNP, CMP ####[facility] Eqtokcztku[address] [place] [id number]. Abiel Clement EGFR-AF JORDANIAN >60 Normal >=60 [facility] Comment on above: Performed By: #### H STROPN, BNP, CMP ####[facility] Gdzowdwzur64[address] [place] [id number]. Abiel Clement EGFR-NON AF JORDANIAN 56 mL/min/1.73m2 Critically low >=60 [facility] Comment on above: Performed By: #### H STROPN, BNP, CMP ####[facility] Duyaidodtt[address] [place] [id number]. Abiel Clement Globulin (S) [Mass/Vol] 3.4 g/dL Normal [facility] Comment on above: Performed By: #### H STROPN, BNP, CMP ####[facility] Kuglpgobgf[address] [place] [address]Dr. Abiel Clement Glucose [Mass/Vol] 267 mg/dL Critically high 74-106 [facility] Comment on above: Performed By: #### H STROPN, BNP, CMP ####[facility] Epnzqkvjqu6[address] [place] [address]Dr. Abiel Clement Potassium [Moles/Vol] 3.8 mmol/L Normal 3.5-5.1 [facility] Comment on above: Performed By: #### H STROPN, BNP, CMP ####[facility] Knmxmkibjo23[address] [place] [id number]. Abiel Clement Protein [Mass/Vol] 5.6 g/dL Critically low 6.4-8.2 [facility] Comment on above: Performed By: #### H STROPN, BNP, CMP ####[facility] Mqikdtmupj[address] [place] [address]Dr. Abiel Clement Sodium [Moles/Vol] 137 mmol/L Normal 136-145 [facility] Comment on above: Performed By: #### H STROPN, BNP, CMP ####[facility] Hfxgsqmnhg8[address] [place] [address]Dr. Abiel Clement Urea nitrogen [Mass/Vol] 28.0 mg/dL Critically high 7.0-18.0 [facility] Comment on above: Performed By: #### H STROPN, BNP, CMP ####[facility] Dmpnxqnxnu[address] [place], [place] [address]Dr. Abiel Clement Urea nitrogen/Creatinine [Mass ratio] 27.7 mg/mg Normal [facility] Comment on above: Performed By: #### H STROPN, BNP, CMP ####[facility] Ibubkpmszw7[address] [place], [place] [address]Dr. Abiel Urbano TROPONIN, HIGH SENSITIVITYon 03-14-2022 HSTROP 13.7 pg/mL Normal 4.0-51.3 [facility] Comment on above: Result Comment: CUT- OFF POINTS HAVE BEEN ESTABLISHED BASED ON THE FOURTH UNIVERSAL DEFINITIONS OF MYOCARDIALINFARCTION. THE UPPER REFERENCE LIMIT (URL) OF TROPONIN, DEFINED THE 99TH PERCENTILE OFcTnI DISTRIBUTION IN A REFERENCE POPULATION, HAS BEEN CONFIRMED THE DECISION THRESHOLDFOR MD DIAGNOSIS. Performed By: #### H STROPN, BNP, CMP ####[facility] Xjeqjhgfqg[address] [place], [place] [address]Dr. Abiel Urbano BNPon 03-13-2022 Natriuretic peptide B (Bld) [Mass/Vol] 1791.0 pg/mL Critically high <=900.0 [facility] Comment on above: Performed By: #### C MP, BNP ####[facility] Nuwasvykjs[address] [place], [place] [address]Dr. Abiel Clement Natriuretic peptide B (Bld) [Mass/Vol] 698.0 pg/mL Normal <=900.0 [facility] Comment on above: Performed By: #### B CLEAN ROOM ASSEMBLER, CMP ####[facility] Sczppndrcd[address] [place], [place] [address]Dr. Abiel Clement CBC AUTO DIFFon 03-13-2022 BASO # 0.0 103/ul Normal 0.0-0.1 [facility] Comment on above: Performed By: #### C BC ####[facility] Xevohwdbew[address] [place], [place] [address]Dr. Abiel Clement Basophils/100 WBC (Bld) 0.2 % Normal 0.2-2.0 [facility] Comment on above: Performed By: #### C BC ####[facility] T[address]rqfgkei[address] [place] [id number]. Abiel Clemnet EO # 0.0 103/ul Normal 0.0-0.7 [facility] Comment on above: Performed By: #### C BC ####[facility] Fqtlvgczam4[address] [place] [id number] Abiel Clement Eosinophils/100 WBC (Bld) 0.0 % Critically low 0.9-7.0 [facility] Comment on above: Performed By: #### C BC ####[facility] Ziqbhktrxf4[address] [place] [address]Dr. Abiel Clement Erythrocyte distribution width (RBC) [Ratio] 13.3 % Normal 11.0-15.0 [facility] Comment on above: Performed By: #### C BC ####[facility] Byhfnbluaw[address] [place], [place] [address]Dr. Abiel Clement Hematocrit (Bld) [Volume fraction] 33.4 % Critically low 36.0-48.0 [facility] Comment on above: Performed By: #### C BC ####[facility] Jbjgoimqlf[address] [place], [place] [address]Dr. Abiel Clement Hemoglobin (Bld) [Mass/Vol] 10.6 g/dL Critically low 12.0-16.0 [facility] Comment on above: Performed By: #### C BC ####[facility] Hnqkpjhijn[address] [place], [place] [address]DrKasia Abiel Clement IG # 0.13 10e3/ul Critically high 0.00-0.03 [facility] Comment on above: Performed By: #### C BC ####[facility] Zdiyqiccse[address] [place], [place] [address]Dr. Suyapaviviana Clement IG % 0.8 % Critically high 0.0-0.5 [facility] Comment on above: Performed By: #### C BC ####[facility] Gezajaennn[address] [place], [place] [address]DrKasia Clement LYMPH # 1.0 103/ul Critically low 1.2-3.8 [facility] Comment on above: Performed By: #### C BC ####[facility] F[address]lyfnkiy[address] [place] [address]Dr. Abiel Clement Lymphocytes/100 WBC (Bld) 6.0 % Critically low 20.5-60.0 [facility] Comment on above: Performed By: #### C BC ####[facility] Pysnbzppmf4[address] [place] [address]Dr. Abiel Clement MANUAL DIFF REQ NO Normal [facility] Comment on above: Performed By: #### C BC ####[facility] O[address]qigycchq[address] [place] [address]Dr. Abiel Clement MCH (RBC) [Entitic mass] 30.0 pg Normal 26.7-34.0 [facility] Comment on above: Performed By: #### C BC ####[facility] Mbqvzcf[address] [place], [place] [address]Dr. Abiel Clement MCHC (RBC) [Mass/Vol] 31.7 g/dL Normal 29.9-35.2 [facility] Comment on above: Performed By: #### C BC ####[facility] Mlffjq[address] [place], [place] [address]Dr. Abiel Clement MCV (RBC) [Entitic vol] 94.6 fL Normal 81.0-99.0 [facility] Comment on above: Performed By: #### C BC ####[facility] [address] [place] [address]Dr. Abiel Clement MONO # 1.4 103/ul Critically high 0.3-0.8 [facility] Comment on above: Performed By: #### C BC ####[facility] Bxpggqfmjk[address] [place], [place] [address]Dr. Abiel Clement Monocytes/100 WBC (Bld) 8.9 % Normal 1.7-12.0 [facility] Comment on above: Performed By: #### C BC ####[facility] Meljjyrzoi[address] [place] [address]Dr. Abiel Clement NEUT # 13.3 103/ul Critically high 1.4-6.5 [facility] Comment on above: Performed By: #### C BC ####[facility] Jrabdpkmiq0653 [place] [address]Dr. Abiel Clement Neutrophils/100 WBC (Bld) 84.1 % Critically high 43.0-75.0 [facility] Comment on above: Performed By: #### C BC ####[facility] Gporgqrpjk39[address] [place] [address]Dr. Abiel Clement Platelet mean volume (Bld) [Entitic vol] 10.8 fL Normal 9.5-13.5 [facility] Comment on above: Performed By: #### C BC ####[facility] K[address]ylw[address] [place], [place] [address]Dr. Abiel Urbano PLT 243 103/ul Normal 150-450 [facility] Comment on above: Performed By: #### C BC ####[facility] Sz[address]vxtcr[address] [place], [place] [address]Dr. Abiel Urbano RBC 3.53 106/ul Critically low 4.20-5.40 [facility] Comment on above: Performed By: #### C BC ####[facility] Zdryjzxtni[address] [place], [place] [address]Dr. Abiel Clement WBC 15.9 103/ul Critically high 4.0-11.0 [facility] Comment on above: Performed By: #### C BC ####[facility] Ajtaawwy[address] [place], [place] [address]Dr. Abiel Urbano CBC W MANUAL DIFFon 03-13-20 22 ATYPICAL LYMPH # Normal [facility] Comment on above: Performed By: #### C BCMAN ####[facility] [address] [place], [place] [address]Dr. Abiel Urbano ATYPICAL LYMPH % Normal [facility] Comment on above: Performed By: #### C BCMAN ####[facility] Miqgapccps37[address] [place] [address]Dr. Abiel Clement BAND # 0.8 103/ul Critically high 0.0-0.3 [facility] Comment on above: Performed By: #### C BCMAN ####[facility] [address]utkwwde[address] [place] [id number]. Abiel Clement BAND % 6 % Critically high 0-5 [facility] Comment on above: Performed By: #### C BCMAN ####[facility] Dyzktrkpwm2644 [place] [id number]. Abiel Clement BASOM # 0.00 103/ul Normal 0.00-0.10 [facility] Comment on above: Performed By: #### C BCMAN ####[facility] Zbmmwcayra42[address] [place] [id number]. Abiel Clement BASOM % 0.0 % Critically low 0.2-2.[address] [facility] Comment on above: Performed By: #### C BCMAN ####[facility] Pcovlsywoj[address] [place] [address]Dr. Abiel Clement BLAST # Normal [facility] Comment on above: Performed By: #### C BCALLY ####[facility] Mslmjfqdxe[address] [place] [address]Dr. Yiviviana Clement BLAST % Normal [facility] Comment on above: Performed By: #### C BCALLY ####[facility] Emzogrismg[address] [place] [address]Dr. Abiel Clement CORRECTED WBC Normal 4.0-11.0 [facility] Comment on above: Performed By: #### C BCMAN ####[facility] Xuyoqceica[address] [place] [address]Dr. Abiel Clement EOS # 0.00 103/ul Normal 0.00-0.70 [facility] Comment on above: Performed By: #### C BCMAN ####[facility] Bcdpoezvti[address] [place] [address]Dr. Abiel Clement EOS% 0.0 % Critically low 0.9-7.[address] [facility] Comment on above: Performed By: #### C BCMAN ####[facility] Tqyozqinqk[address] [place] [id number]. Abiel Clement HCT 38.5 % Normal 36.0-48.0 [facility] Comment on above: Performed By: #### C ALVINO ####[facility] [address]lct[address]ubx[address] [place], [place] [address]Ri. Abiel Clement HGB 12.5 g/dl Normal 12.0-16.0 [facility] Comment on above: Performed By: #### C ALVINO ####[facility] Xutvbmphyd9904 [place], [place] [address]Kc. Abiel Clement LYMPHM # 0.13 103/ul Critically low 1.20-3.80 [facility] Comment on above: Performed By: #### C ALVINO ####[facility] Pbafjbjdsr[address] [place] [address]Dr. Abiel Clement LYMPHM% 1.0 % Critically low 20.5-60.[address] [facility] Comment on above: Performed By: #### C ALVINO ####[facility] Hdawlrcyto14[address] [place] [address]Dr. Abiel Clement MCH 29.3 pg Normal 26.7-34.0 [facility] Comment on above: Performed By: #### C ALVINO ####[facility] Sbkagmpdxw7[address] [place] [id number]. Abiel Clement MCHC 32.5 g/dl Normal 29.9-35.2 [facility] Comment on above: Performed By: #### C ALVINO ####[facility] Tqayrlfdul[address] [place], [place] [address]Xh. Abiel Clement MCV 90.4 fL Normal 81.0-99.0 [facility] Comment on above: Performed By: #### C ALVINO ####[facility] Bsmlvmhrso01[address] [place], [place] [address]Uo. Abiel Clement METAMYELOCYTE # Normal [facility] Comment on above: Performed By: #### C ALVINO ####[facility] F[address]noeyjgt25[address] [place], [place] [address]Ms. Abiel Clement METAMYELOCYTE % Normal [facility] Comment on above: Performed By: #### Sheila DE OLIVEIRA ####[facility] Rfqkcnhyuw32[address] [place] [id number]. Abiel Clement MONOM# 0.13 103/ul Critically low 0.30-0.80 [facility] Comment on above: Performed By: #### C ALVINO ####[facility] Yynukjpxtb6814 [place] [address]Dr. Abiel Clement MONOM% 1.0 % Critically low 1.7-12.0 [facility] Comment on above: Performed By: #### C ALVINO ####[facility] Gafodjdxim14[address] [place] [address]Dr. Abiel Clement MPV 10.6 fL Normal 9.5-13.5 [facility] Comment on above: Performed By: #### C ALVINO ####[facility] Qvwpvmvkro6832 [place] [address]Dr. Abiel Clement MYELOCYTE # Normal [facility] Comment on above: Performed By: #### C ALVINO ####[facility] Ywrisvfumq10[address] [place] [address]Dr. Abiel Clement MYELOCYTE % Normal [facility] Comment on above: Performed By: #### C ALVINO ####[facility] Bzietxhbko[address] [place] [address]Dr. Abiel Clement NRBC Normal [facility] Comment on above: Performed By: #### C ALVINO ####[facility] Mitfcmngep6[address] [place] [id number]. Abiel Clement PLT 307 103/ul Normal 150-450 [facility] Comment on above: Result Comment: Plat elet clumps noted on diff. Automated Platelet count may be falsely decreased Performed By: #### C ALVINO ####[facility] Ehhekahnin87[address] [place] [id number]. Abiel Clement RBC 4.26 106/ul Normal 4.20-5.40 [facility] Comment on above: Performed By: #### C ALVINO ####[facility] Zaupwnuaqn[address] [place] [address]Dr. Abiel Clement RDW 13.3 % Normal 11.0-15.0 [facility] Comment on above: Performed By: #### C BCMAN ####[facility] Icdkwuefwu55[address] [place], [place] [address]Kz. Abiel Clement SEG # 11.68 103/ul Critically high 1.40-6.50 [facility] Comment on above: Performed By: #### C BCMAN ####[facility] Zbmalkybzz3081 [place], [place] [address]Rf. Abiel Clement SEG % 92.0 % Critically high 43.0-75.0 [facility] Comment on above: Performed By: #### C BCMAN ####[facility] Lfwqmoawmd5421 [place], [place] [address]Ci. Abiel Clement WBC 12.7 103/ul Critically high 4.0-11.0 [facility] Comment on above: Performed By: #### C BCMAN ####[facility] Gyxfcccdle2655 [place], [place] [address]Po. Abiel Clement CTA CHEST WO W CONon 022 CTA CHEST WO W CON Normal [facility] CULTURE BLOODon 03-13-2022 Microscopic examination of blood, culture Culture Observations: NO GROWTH AT 5 DAYS. Normal [facility] Comment on above: Performed By: #### B LDCX2 ####[facility] [address]kz40[address] [place], [place] [address]Du. Abiel Clement Microscopic examination of blood, culture Culture Observations: NO GROWTH AT 5 DAYS. Normal [facility] Comment on above: Performed By: #### B LDCX1 ####[facility] Gspydncudg4556 [place] [id number]. Abiel Clement Covid-19 PCR (CVDTB)on SARS-CoV-2 (COVID-19) RNA CLARIBEL+probe Ql (Unsp spec) Not detected Normal NOT DETECTED [facility] Comment on above: Result Comment: When diagnostic testing is negative, the possibility of a false negative should be considered inthe context of a patient's recent exposures and the presence of clinical signs and symptomsconsistent with SARS-CoV-2.This test is not yet approved or cleared by the [place] FDA. When there are no FDA-approved or cleared tests available, and other criteria are met, FDA can make tests available under an emergency access mechanism called an Emergency Use Authorization (EUA). The EUA for this test is supported by the [employer] of Health and Human Service's declaration that circumstances exist to justify the emergency use of in vitro diagnostics for the detection and/or diagnosis of the virus that causes COVID-19. This EUA will remain in effect for the duration of the COVID-19 declaration justifying emergency of IVDs, unless it is terminated or revoked by the FDA (after which the test may no longer be used). Performed By: #### C VDTBH ####[facility] Njpxskmrdq[address] [place], [place] [address]Dr. Abiel Clement D-DIMERon 03-13-2022 D-DIMER 2.68 mg/L FEU Critically high <=0.59 [facility] Comment on above: Performed By: #### D DIM ####[facility] [address]okmb[address]nt[address] [place], [place] [address]Dr. Abiel Clement D-DIMER COMMENTS SEE BELOW Normal [facility] Comment on above: Result Comment: Incr eases in D-Dimer concentration observed with thromboembolic events can be variable due to localization, size, and age of the thrombus. Therefore, a thromboembolic event cannot be diagnosed with certainty on the basis of the reference range. D-Dimers may also be elevated for a variety of disorders including: advanced age, , coronary disease, cancer, liver disease, infection, inflammation, hematoma, DIC, trauma, post-surgery, diabetes, thrombolytic or anticoagulant therapy, stress, and generalized hospitalization. Performed By: #### D DIM ####[facility] Xvlfjjidnj[address] [place], [place] [address]Dr. Abiel Clement LACTATE/LACTIC ACIDon 2021 Lactate [Moles/Vol] 1.6 mmol/L Normal 0.4-1.9 [facility] Comment on above: Performed By: #### L ACT ####[facility] Cexsedidxw[address] [place], [place] [address]Dr. Abiel Clement Lactate [Moles/Vol] 2.0 mmol/L Critically high 0.4-1.9 [facility] Comment on above: Performed By: #### L ACT ####[facility] Rmuygvxjzk8135 [place] [id number]. Suyapaviviana Urbano POINT OF CARE GLUCOSEon Glucose [Mass/Vol] 359 mg/dL Critically high 74-106 [facility] Comment on above: Performed By: #### P OCGLUC ####[facility] Izcyjlodru4114 [place] [id number]. Abiel Clement Glucose [Mass/Vol] 428 mg/dL Critically high 74-106 [facility] Comment on above: Performed By: #### P OCGLUC ####[facility] Xazlgwrezn6487 [place] [address]Dr. Suyapaviviana Urbano Glucose [Mass/Vol] 461 mg/dL Critically high 74-106 [facility] Comment on above: Performed By: #### P OCGLUC ####[facility] Xcywupqzaq[address] [place], [place] [address]Dr. Abiel Clement Glucose [Mass/Vol] 494 mg/dL Critically high 74-106 [facility] Comment on above: Performed By: #### P OCGLUC ####[facility] Vvbftljzpj[address] [place], [place] [address]Dr. Abiel Clement PROF 14(COMP METB)on 022 Albumin [Mass/Vol] 2.4 g/dL Critically low 3.4-5.0 [facility] Comment on above: Performed By: #### C MP, BNP ####[facility] Vwchilx[address] [place], [place] [address]Dr. Abiel Clement Albumin/Globulin [Mass ratio] 0.6 {ratio} Normal [facility] Comment on above: Performed By: #### C MP, BNP ####[facility] Efqhpxlyvk[address] [place], [place] [address]Dr. Abiel Clement ALP [Catalytic activity/Vol] 128 U/L Critically high 46-116 [facility] Comment on above: Performed By: #### C MP, BNP ####[facility] Hfagkcltno[address] [place], [place] [address]Dr. Abiel Clement ALT [Catalytic activity/Vol] 17 U/L Normal 14-59 [facility] Comment on above: Performed By: #### C MP, BNP ####[facility] Iroevxnrth[address] [place], [place] [address]Dr. Abiel Clement Anion gap [Moles/Vol] 13.9 mmol/L Normal [facility] Comment on above: Performed By: #### C MP, BNP ####[facility] Hbailowmfe[address] [place], [place] [address]Dr. Abiel Urbano AST [Catalytic activity/Vol] 26 U/L Normal 15-37 [facility] Comment on above: Performed By: #### C MP, BNP ####[facility] Wnpfbvommr[address] [place], [place] [address]Dr. Suyapaviviana Clement Bilirubin [Mass/Vol] 0.5 mg/dL Normal 0.2-1.0 [facility] Comment on above: Performed By: #### C MP, BNP ####[facility] [address]hwmelmm[address] [place], [place] [address]Dr. Abiel Urbano Calcium [Mass/Vol] 8.3 mg/dL Critically low 8.5-10.1 [facility] Comment on above: Performed By: #### C MP, BNP ####[facility] Uhqfajvidg[address] [place], [place] [address]Dr. Abiel Urbano Chloride [Moles/Vol] 99 mmol/L Normal 98-107 [facility] Comment on above: Performed By: #### C MP, BNP ####[facility] Isotqylpoq[address] [place], [place] [address]Dr. Suyapaviviana Clement CO2 [Moles/Vol] 23.4 mmol/L Normal 21.0-32.0 [facility] Comment on above: Performed By: #### C MP, BNP ####[facility] Frvqcxyoeq[address] [place], [place] [address]Dr. Abiel Urbano Creatinine [Mass/Vol] 1.19 mg/dL Critically high 0.55-1.02 [facility] Comment on above: Performed By: #### C MP, BNP ####[facility] Tbgelrpago[address] [place], [place] [address]Dr. Abiel Clement EGFR-AF JORDANIAN 56 mL/min/1.73m2 Critically low >=60 [facility] Comment on above: Performed By: #### C MP, BNP ####[facility] Zytcaklzqj[address] [place], [place] [address]Dr. Abiel Clement EGFR-NON AF JORDANIAN 46 mL/min/1.73m2 Critically low >=60 [facility] Comment on above: Performed By: #### C MP, BNP ####[facility] [address]ou[address]jgf[address] [place], [place] [address]Dr. Abiel Clement Globulin (S) [Mass/Vol] 3.7 g/dL Normal [facility] Comment on above: Performed By: #### C MP, BNP ####[facility] Ptedxtjezq[address] [place], [place] [address]Dr. Abiel Clement Glucose [Mass/Vol] 447 mg/dL Critically high 74-106 [facility] Comment on above: Performed By: #### C MP, BNP ####[facility] [address]vchhgwyz[address] [place], [place] [address]Dr. Abiel Clement Potassium [Moles/Vol] 5.3 mmol/L Critically high 3.5-5.1 [facility] Comment on above: Performed By: #### C MP, BNP ####[facility] H[address]zkwhbod[address] [place], [place] [address]Dr. Abiel Clement Protein [Mass/Vol] 6.1 g/dL Critically low 6.4-8.2 [facility] Comment on above: Performed By: #### C MP, BNP ####[facility] Cfyhogvuel[address] [place], [place] [address]Dr. Abiel Clement Sodium [Moles/Vol] 131 mmol/L Critically low 136-145 [facility] Comment on above: Performed By: #### C MP, BNP ####[facility] Tcwtlyk[address] [place], [place] [address]Dr. Abiel Clement Urea nitrogen [Mass/Vol] 36.0 mg/dL Critically high 7.0-18.0 [facility] Comment on above: Performed By: #### C MP, BNP ####[facility] Hsmosunjcs4[address] [place] [id number]. Abiel Clement Urea nitrogen/Creatinine [Mass ratio] 30.3 mg/mg Normal [facility] Comment on above: Performed By: #### C MP, BNP ####[facility] Dnxydlkrlu[address] [place] [id number]. Abiel Clement Albumin [Mass/Vol] 3.1 g/dL Critically low 3.4-5.0 [facility] Comment on above: Performed By: #### B CLEAN ROOM ASSEMBLER, CMP ####[facility] Neglwuehit5562 [place] [id number]. Abiel Clement Albumin/Globulin [Mass ratio] 0.7 {ratio} Normal [facility] Comment on above: Performed By: #### B CLEAN ROOM ASSEMBLER, CMP ####[facility] Vkvgllvtrr27[address] [place] [address]Dr. Abiel Urbano ALP [Catalytic activity/Vol] 161 U/L Critically high 46-116 [facility] Comment on above: Performed By: #### B CLEAN ROOM ASSEMBLER, CMP ####[facility] Vyfbnrlvsv5466 [place] [id number]. Abiel Clement ALT [Catalytic activity/Vol] 22 U/L Normal 14-59 [facility] Comment on above: Performed By: #### B CLEAN ROOM ASSEMBLER, CMP ####[facility] Jdppohgbbd5456 [place] [id number]. Suyapaviviana Urbano Anion gap [Moles/Vol] 13.5 mmol/L Normal [facility] Comment on above: Performed By: #### B CLEAN ROOM ASSEMBLER, CMP ####[facility] Lyxwzlsewl8436 [place] [id number]. Abiel Urbano AST [Catalytic activity/Vol] 41 U/L Critically high 15-37 [facility] Comment on above: Performed By: #### B CLEAN ROOM ASSEMBLER, CMP ####[facility] Aaloclkvfb2639 [place] [address]Dr. Abiel Clement Bilirubin [Mass/Vol] 0.5 mg/dL Normal 0.2-1.0 [facility] Comment on above: Performed By: #### B CLEAN ROOM ASSEMBLER, CMP ####[facility] Zrjcmiutod1862 [place] [id number]. Abiel Clement Calcium [Mass/Vol] 9.4 mg/dL Normal 8.5-10.1 [facility] Comment on above: Performed By: #### B CLEAN ROOM ASSEMBLER, CMP ####[facility] Otwqssmjqs8802 [place] [address]Dr. Abiel Clement Chloride [Moles/Vol] 98 mmol/L Normal 98-107 [facility] Comment on above: Performed By: #### B CLEAN ROOM ASSEMBLER, CMP ####[facility] Wdbwqvvhke[address] [place], [place] [address]Dr. Abiel Clement CO2 [Moles/Vol] 27.0 mmol/L Normal 21.0-32.0 [facility] Comment on above: Performed By: #### B CLEAN ROOM ASSEMBLER, CMP ####[facility] Pnvupcqwgb18[address] [place], [place] [address]Dr. Abiel Clement Creatinine [Mass/Vol] 1.08 mg/dL Critically high 0.55-1.02 [facility] Comment on above: Performed By: #### B CLEAN ROOM ASSEMBLER, CMP ####[facility] Pvozmxrner[address] [place], [place] [address]Dr. Abiel Clement EGFR-AF JORDANIAN >60 Normal >=60 [facility] Comment on above: Performed By: #### B CLEAN ROOM ASSEMBLER, CMP ####[facility] Ncudpnvfxf47[address] [place], [place] [address]Dr. Abiel Clement EGFR-NON AF JORDANIAN 51 mL/min/1.73m2 Critically low >=60 [facility] Comment on above: Performed By: #### B CLEAN ROOM ASSEMBLER, CMP ####[facility] Qaoyteygfl[address] [place], [place] [address]Dr. Abiel Clement Globulin (S) [Mass/Vol] 4.2 g/dL Normal [facility] Comment on above: Performed By: #### B CLEAN ROOM ASSEMBLER, CMP ####[facility] Dyrwbhhlio[address] [place], [place] [address]Dr. Abiel Clement Glucose [Mass/Vol] 173 mg/dL Critically high 74-106 [facility] Comment on above: Performed By: #### B CLEAN ROOM ASSEMBLER, CMP ####[facility] Bcifqlrytn4244 [place] [address]Dr. Abiel Clement Potassium [Moles/Vol] 4.5 mmol/L Normal 3.5-5.1 [facility] Comment on above: Performed By: #### B CLEAN ROOM ASSEMBLER, CMP ####[facility] Raupnaguov7238 [place] [address]Dr. Abiel Celment Protein [Mass/Vol] 7.3 g/dL Normal 6.4-8.2 [facility] Comment on above: Performed By: #### B CLEAN ROOM ASSEMBLER, CMP ####[facility] Ethxpikrlq[address] [place], [place] [address]Dr. Abiel Clement Sodium [Moles/Vol] 134 mmol/L Critically low 136-145 [facility] Comment on above: Performed By: #### B CLEAN ROOM ASSEMBLER, CMP ####[facility] Fucgxaabsx[address] [place], [place] [address]Dr. Abiel Clement Urea nitrogen [Mass/Vol] 37.0 mg/dL Critically high 7.0-18.0 [facility] Comment on above: Performed By: #### B CLEAN ROOM ASSEMBLER, CMP ####[facility] Xcrfslfcss9[address] [place], [place] [address]Dr. Abiel Clement Urea nitrogen/Creatinine [Mass ratio] 34.3 mg/mg Normal [facility] Comment on above: Performed By: #### B CLEAN ROOM ASSEMBLER, CMP ####[facility] Djdugvvhns27[address] [place], [place] [address]Dr. Abiel Clement XR ANKLE RT MIN 3 VIEWSon XR ANKLE RT MIN 3 VIEWS Normal [facility] XR CHEST 1 Von 03-13-2022 XR CHEST 1 V Normal [facility] XR FOOT RT MIN 3 VIEWSon XR FOOT RT MIN 3 VIEWS Normal [facility] CBC AUTO DIFFon 03-12-2022 BASO # 0.1 103/ul Normal 0.0-0.1 [facility] Comment on above: Performed By: #### C BC ####[facility] Injtzbamim[address] [place], [place] [address]Dr. Abiel Clement Basophils/100 WBC (Bld) 0.7 % Normal 0.2-2.0 [facility] Comment on above: Performed By: #### C BC ####[facility] Qqyesoiyip4655 [place] [id number]. Abiel Clement EO # 0.2 103/ul Normal 0.0-0.7 [facility] Comment on above: Performed By: #### C BC ####[facility] Mxlmoppyps8789 [place] [address]Dr. Abiel Clement Eosinophils/100 WBC (Bld) 2.1 % Normal 0.9-7.0 [facility] Comment on above: Performed By: #### C BC ####[facility] Cuqkphrful156[address] [place], [place] [address]Dr. Abiel Clement Erythrocyte distribution width (RBC) [Ratio] 13.1 % Normal 11.0-15.0 [facility] Comment on above: Performed By: #### C BC ####[facility] Npqktuwksb166[address] [place], [place] [address]Dr. Abiel Clement Hematocrit (Bld) [Volume fraction] 33.9 % Critically low 36.0-48.0 [facility] Comment on above: Performed By: #### C BC ####[facility] Ixwyuoqbgo[address] [place], [place] [address]Dr. Abiel Clement Hemoglobin (Bld) [Mass/Vol] 11.0 g/dL Critically low 12.0-16.0 [facility] Comment on above: Performed By: #### C BC ####[facility] Almabwtyqg[address] [place], [place] [address]Dr. Abiel Clement IG # 0.04 10e3/ul Critically high 0.00-0.03 [facility] Comment on above: Performed By: #### C BC ####[facility] Wdmhfwuoil50[address] [place], [place] [id number]. Abiel Clement IG % 0.4 % Normal 0.0-0.5 [facility] Comment on above: Performed By: #### C BC ####[facility] Wessqvawjg[address] [place], [place] [address]Dr. Abiel Clement LYMPH # 2.0 103/ul Normal 1.2-3.8 [facility] Comment on above: Performed By: #### C BC ####[facility] Jzkyxeakoc2159 [place] [address]Dr. Abiel Clement Lymphocytes/100 WBC (Bld) 20.0 % Critically low 20.5-60.0 [facility] Comment on above: Performed By: #### C BC ####[facility] Xagqrqqxjl9576 [place] [address]Dr. Abiel Clement MANUAL DIFF REQ NO Normal [facility] Comment on above: Performed By: #### C BC ####[facility] Whfqrbxgzs6552 [place] [address]Dr. Abiel Clement MCH (RBC) [Entitic mass] 29.5 pg Normal 26.7-34.0 [facility] Comment on above: Performed By: #### C BC ####[facility] Scapxwtvjp[address] [place], [place] [address]Dr. Abiel Clement MCHC (RBC) [Mass/Vol] 32.4 g/dL Normal 29.9-35.2 [facility] Comment on above: Performed By: #### C BC ####[facility] Gpxcuhwtrd[address] [place], [place] [address]Dr. Abiel Clement MCV (RBC) [Entitic vol] 90.9 fL Normal 81.0-99.0 [facility] Comment on above: Performed By: #### C BC ####[facility] Tkjgdtwstn6915 [place] [address]Dr. Abiel Clement MONO # 1.0 103/ul Critically high 0.3-0.8 [facility] Comment on above: Performed By: #### C BC ####[facility] Xqgubsxpvn9212 [place] [address]Dr. Abiel Clement Monocytes/100 WBC (Bld) 10.3 % Normal 1.7-12.0 [facility] Comment on above: Performed By: #### C BC ####[facility] Kpwrcsfhkt[address] [place], [place] [address]Dr. Abiel Clement NEUT # 6.5 103/ul Normal 1.4-6.5 [facility] Comment on above: Performed By: #### C BC ####[facility] Ndofcujznr8335 [place] [address]Dr. Abiel Clement Neutrophils/100 WBC (Bld) 66.5 % Normal 43.0-75.0 [facility] Comment on above: Performed By: #### C BC ####[facility] Qfacnqxtft4045 [place] [address]Dr. Abiel Clement Platelet mean volume (Bld) [Entitic vol] 10.8 fL Normal 9.5-13.5 [facility] Comment on above: Performed By: #### C BC ####[facility] Sutapesker4[address] [place] [address]Dr. Abiel Clement PLT 278 103/ul Normal 150-450 [facility] Comment on above: Performed By: #### C BC ####[facility] Dsqjkholki0555 [place] [address]Dr. Abiel Clement RBC 3.73 106/ul Critically low 4.20-5.40 [facility] Comment on above: Performed By: #### C BC ####[facility] Pwwcdawvju9053 [place] [address]Dr. Abiel Clement WBC 9.7 103/ul Normal 4.0-11.0 [facility] Comment on above: Performed By: #### C BC ####[facility] Xbzzlssutp8215 [place] [address]Dr. Abiel Urbano PROF CHEM 8 (BAS METB)on Anion gap [Moles/Vol] 11.5 mmol/L Normal [facility] Comment on above: Performed By: #### B MP ####[facility] Bdjszonlxy1837 [place] [address]Dr. Abiel Clement Calcium [Mass/Vol] 8.9 mg/dL Normal 8.5-10.1 [facility] Comment on above: Performed By: #### B MP ####[facility] Rzwvkicsoy5522 [place] [address]Dr. Abiel Clement Chloride [Moles/Vol] 102 mmol/L Normal 98-107 [facility] Comment on above: Performed By: #### B MP ####[facility] Kytlhdxssy[address] [place], [place] [address]Dr. Abiel Clement CO2 [Moles/Vol] 28.4 mmol/L Normal 21.0-32.0 [facility] Comment on above: Performed By: #### B MP ####[facility] Rjqomssiau8[address] [place], [place] [address]Dr. Abiel Clement Creatinine [Mass/Vol] 1.10 mg/dL Critically high 0.55-1.02 [facility] Comment on above: Performed By: #### B MP ####[facility] Ljuqitbokj[address] [place], [place] [address]Dr. Abiel Clement EGFR-AF JORDANIAN >60 Normal >=60 [facility] Comment on above: Performed By: #### B MP ####[facility] Dnijhnhocf[address] [place], [place] [address]Dr. Abiel Clement EGFR-NON AF JORDANIAN 50 mL/min/1.73m2 Critically low >=60 [facility] Comment on above: Performed By: #### B MP ####[facility] Lttskrbrcs[address] [place], [place] [address]Dr. Abiel Clement Glucose [Mass/Vol] 106 mg/dL Normal 74-106 [facility] Comment on above: Performed By: #### B MP ####[facility] Wixksrtwkz9[address] [place], [place] [address]Dr. Abiel Clement Potassium [Moles/Vol] 3.9 mmol/L Normal 3.5-5.1 [facility] Comment on above: Performed By: #### B MP ####[facility] Rncxjvstkk269[address] [place], [place] [address]Dr. Abiel Clement Sodium [Moles/Vol] 138 mmol/L Normal 136-145 [facility] Comment on above: Performed By: #### B MP ####[facility] Yckzrhybpi[address] [place], [place] [address]Dr. Abiel Clement Urea nitrogen [Mass/Vol] 38.0 mg/dL Critically high 7.0-18.0 [facility] Comment on above: Performed By: #### B MP ####[facility] Wsgllcqjrn5821 [place] [address]Dr. Abiel Clement Urea nitrogen/Creatinine [Mass ratio] 34.5 mg/mg Normal [facility] Comment on above: Performed By: #### B MP ####[facility] Cayegoojml2617 [place] [address]Dr. Abiel Clement XR FOOT LT MIN 3 VIEWSon XR FOOT LT MIN 3 VIEWS Normal [facility] POINT OF CARE GLUCOSEon Glucose [Mass/Vol] 389 mg/dL Critically high [facility]106 [facility] Comment on above: Performed By: #### P OCGLUC ####[facility] Dfpmtdvlld[address] [place], [place] [address]Dr. Abiel Clement Glucose [Mass/Vol] 414 mg/dL Critically high [facility]106 [facility] Comment on above: Performed By: #### P OCGLUC ####[facility] Zopkjrulom3986 [place] [address]Dr. Abiel Clement Glucose [Mass/Vol] 295 mg/dL Critically high [address] [place] [address] Comment on above: Performed By: #### P OCGLUC ####[facility] Awjkjnoelk7[address] [place], [place] [address]Dr. Abiel Clement Glucose [Mass/Vol] 323 mg/dL Critically high [address] [place] [address] Comment on above: Performed By: #### P OCGLUC ####[facility] Knyosirkxa[address] [place], [place] [address]Dr. Abiel Clement Cov[facility] ([facility])on SARS-CoV-2 (COVID-19) RNA CLARIBEL+probe Ql (Unsp spec) Not detected Normal NOT DETECTED [facility] Comment on above: Result Comment: When diagnostic testing is negative, the possibility of a false negative should be considered inthe context of a patient's recent exposures and the presence of clinical signs and symptomsconsistent with SARS-CoV-2.This test is not yet approved or cleared by the [place] FDA. When there are no FDA-approved or cleared tests available, and other criteria are met, FDA can make tests available under an emergency access mechanism called an Emergency Use Authorization (EUA). The EUA for this test is supported by the [place] of Health and Human Service's declaration that circumstances exist to justify the emergency use of in vitro diagnostics for the detection and/or diagnosis of the virus that causes COVID-19. This EUA will remain in effect for the duration of the COVID-19 declaration justifying emergency of IVDs, unless it is terminated or revoked by the FDA (after which the test may no longer be used). Performed By: #### [facility] ####[facility] Kfqvzhxpkp[address] [place], [place] [address]Dr. Suyapaviviana Clement CBC AUTO DIFFon 03-01-2022 BASO # 0.1 103/ul Normal 0.0-0.1 [facility] Comment on above: Performed By: #### C BC ####[facility] Gjlgioukqm[address] [place], [place] [address]Dr. Suyapaviviana Clement Basophils/100 WBC (Bld) 0.7 % Normal 0.2-2.0 [facility] Comment on above: Performed By: #### C BC ####[facility] Jowwjotugv[address] [place], [place] [address]Dr. Suyapaviviana Clement EO # 0.2 103/ul Normal 0.0-0.7 [facility] Comment on above: Performed By: #### C BC ####[facility] Iexwqsojfy774[address] [place], [place] [address]Dr. Suyapaviviana Clement Eosinophils/100 WBC (Bld) 2.6 % Normal 0.9-7.0 [facility] Comment on above: Performed By: #### C BC ####[facility] Kcevvbejos[address] [place], [place] [address]Dr. Suyapaviviana Clement Erythrocyte distribution width (RBC) [Ratio] 13.2 % Normal 11.0-15.0 [facility] Comment on above: Performed By: #### C BC ####[facility] Vwwjzsxwof0918 [place] [address]Dr. Abiel Clement Hematocrit (Bld) [Volume fraction] 42.4 % Normal 36.0-48.0 [facility] Comment on above: Performed By: #### C BC ####[facility] Dognbdedqj6386 [place] [address]Dr. Abiel Urbano Hemoglobin (Bld) [Mass/Vol] 13.9 g/dL Normal 12.0-16.0 [facility] Comment on above: Performed By: #### C BC ####[facility] Soalcgiuxz5013 [place] [address]Dr. Abiel Clement IG # 0.02 10e3/ul Normal 0.00-0.03 [facility] Comment on above: Performed By: #### C BC ####[facility] Tdpxuceefi9781 [place] [address]Dr. Abiel Clement IG % 0.3 % Normal 0.0-0.5 [facility] Comment on above: Performed By: #### C BC ####[facility] Dtnpaxpjrj4860 [place] [address]Dr. Suyapaviviana Clement LYMPH # 1.8 103/ul Normal 1.2-3.8 [facility] Comment on above: Performed By: #### C BC ####[facility] Cehvisdebu8083 [place] [address]Dr. Suyapaviviana Clement Lymphocytes/100 WBC (Bld) 24.1 % Normal 20.5-60.0 [facility] Comment on above: Performed By: #### C BC ####[facility] Qteyoyijkr9405 [place] [address]Dr. Suyapaviviana Clement MANUAL DIFF REQ NO Normal [facility] Comment on above: Performed By: #### C BC ####[facility] Ttagsnrabd[address] [place], [place] [address]Dr. Abiel Urbano MCH (RBC) [Entitic mass] 29.4 pg Normal 26.7-34.0 [facility] Comment on above: Performed By: #### C BC ####[facility] Erzckkuypp[address] [place], [place] [address]Dr. Abiel Clement MCHC (RBC) [Mass/Vol] 32.8 g/dL Normal 29.9-35.2 [facility] Comment on above: Performed By: #### C BC ####[facility] Ywgoxxbnwo3700 [place] [id number]. Abiel Clement MCV (RBC) [Entitic vol] 89.8 fL Normal 81.0-99.0 [facility] Comment on above: Performed By: #### C BC ####[facility] Jebgmpurkg0855 [place] [id number]. Abiel Urbano MONO # 0.7 103/ul Normal 0.3-0.8 [facility] Comment on above: Performed By: #### C BC ####[facility] Vwwhjamshd1286 [place] [address]Dr. Suyapaviviana Clement Monocytes/100 WBC (Bld) 9.2 % Normal 1.7-12.0 [facility] Comment on above: Performed By: #### C BC ####[facility] Uhvbgnqdjd[address] [place], [place] [address]Dr. Abiel Urbano NEUT # 4.6 103/ul Normal 1.4-6.5 [facility] Comment on above: Performed By: #### C BC ####[facility] Mjjcrsbybc[address] [place], [place] [address]Dr. Abiel Urbano Neutrophils/100 WBC (Bld) 63.1 % Normal 43.0-75.0 [facility] Comment on above: Performed By: #### C BC ####[facility] Fxbudhoyem8211 [place] [address]Dr. Abiel Urbano Platelet mean volume (Bld) [Entitic vol] 11.4 fL Normal 9.5-13.5 [facility] Comment on above: Performed By: #### C BC ####[facility] Lozhmqspbf6208 [place] [id number]. Abiel Urbano PLT 309 103/ul Normal 150-450 [facility] Comment on above: Performed By: #### C BC ####[facility] Fjfytxjsns0240 [place] [address]Dr. Abiel Urbano RBC 4.72 106/ul Normal 4.20-5.40 [facility] Comment on above: Performed By: #### C BC ####[facility] Cvbpxrsaal[address] [place], [place] [address]Dr. Abiel Urbano WBC 7.3 103/ul Normal 4.0-11.0 [facility] Comment on above: Performed By: #### C BC ####[facility] Jpjbumzojm5950 [place] [address]Dr. Abiel Clement PROF CHEM 8 (BAS METB)on Anion gap [Moles/Vol] 12.2 mmol/L Normal [facility] Comment on above: Performed By: #### B MP ####[facility] Fypxgubxgr[address] [place], [place] [address]Dr. Abiel Clement Calcium [Mass/Vol] 9.2 mg/dL Normal 8.5-10.1 [facility] Comment on above: Performed By: #### B MP ####[facility] Lpfqpaxnad[address] [place], [place] [address]Dr. Abiel Clement Chloride [Moles/Vol] 102 mmol/L Normal 98-107 [facility] Comment on above: Performed By: #### B MP ####[facility] Ajpljglaly[address] [place], [place] [address]Dr. Abiel Clement CO2 [Moles/Vol] 26.9 mmol/L Normal 21.0-32.0 [facility] Comment on above: Performed By: #### B MP ####[facility] Ehqxcuchmo4809 [place] [address]Dr. Abiel Clement Creatinine [Mass/Vol] 0.99 mg/dL Normal 0.55-1.02 [facility] Comment on above: Performed By: #### B MP ####[facility] Txplaebcab[address] [place], [place] [address]Dr. Abiel Clement EGFR-AF JORDANIAN >=60 Normal >=60 [facility] Comment on above: Performed By: #### B MP ####[facility] Hvdrjbdaul6927 [place] [address]Dr. Abiel Clement EGFR-NON AF JORDANIAN 57 mL/min/1.73m2 Critically low >=60 [facility] Comment on above: Performed By: #### B MP ####[facility] Zqwuyzlzwa8194 [place] [address]Dr. Abiel Clement Glucose [Mass/Vol] 103 mg/dL Normal 74-106 [facility] Comment on above: Performed By: #### B MP ####[facility] Iopflctejj[address] [place], [place] [address]Dr. Abiel Clement Potassium [Moles/Vol] 4.1 mmol/L Normal 3.5-5.1 [facility] Comment on above: Performed By: #### B MP ####[facility] Nztuqvgoii[address] [place], [place] [address]Dr. Abiel Clement Sodium [Moles/Vol] 137 mmol/L Normal 136-145 [facility] Comment on above: Performed By: #### B MP ####[facility] Opdfkqdyfo[address] [place], [place] [address]Dr. Abiel Clement Urea nitrogen [Mass/Vol] 27.0 mg/dL Critically high 7.0-18.0 [facility] Comment on above: Performed By: #### B MP ####[facility] Tzvzkdbqcq[address] [place], [place] [address]Dr. Abiel Clement Urea nitrogen/Creatinine [Mass ratio] 27.3 mg/mg Normal [facility] Comment on above: Performed By: #### B MP ####[facility] Btjkrcsqnk[address] [place], [place] [address]Dr. Abiel Clement PROTIMEon 03-01-2022 INR Coag (PPP) [Relative time] 0.97 {INR} Normal [facility] Comment on above: Performed By: #### P TT, PT ####[facility] Mgxxthoqzk[address] [place], [place] [address]Dr. Abiel Clement INR GUIDELINES SEE BELOW Normal [facility] Comment on above: Result Comment: GELY RED INR: 2.0 - 3.0 CONDITIONS NOT LISTED BELOW 2.5 - 3.5 FOR PROSTHETIC HEART VALVE REPLACEMENT 2.5 - 3.5 RECURRENT THROMBOSIS Performed By: #### P TT, PT ####[facility] Yxslnsczpo8607 [place] [address]Dr. Abiel Clement PT Coag (PPP) [Time] 10.5 s Normal 9.0-11.6 [facility] Comment on above: Performed By: #### P TT, PT ####[facility] R[address]uwysqo[address] [place], [place] [address]Dr. Abiel Clement PTTon 03-01-2022 aPTT Coag (Bld) [Time] 24.8 s Normal 22.3-36.2 [facility] Comment on above: Performed By: #### P TT, PT ####[facility] Awxjbuxqwj[address] [place], [place] [address]Dr. Abiel Clement US CAROTID ART BILon 022 US CAROTID ART VIC Normal [facility] XR FOOT VIC MIN 3 VIEWSon XR FOOT VIC MIN 3 VIEWS Normal [facility] AMYLASEon 11-03-2021 Amylase [Catalytic activity/Vol] 66 U/L Normal 31-110 [facility] Comment on above: Performed By: #### C MP, STEFFI ZAPATA ####[facility] [address]xszeyvjzu[address] [place], [place] [address]Dr. Abiel Clement CBC AUTO DIFFon 11-03-2021 BASO # 0.1 103/ul Normal 0.0-0.1 [facility] Comment on above: Performed By: #### C BC ####[facility] V[address]zhcmcos[address] [place], [place] [address]Dr. Abiel Clement Basophils/100 WBC (Bld) 1.1 % Normal 0.2-2.0 [facility] Comment on above: Performed By: #### C BC ####[facility] Tyuswmqzes[address] [place], [place] [address]Dr. Abiel Clement EO # 0.1 103/ul Normal 0.0-0.7 [facility] Comment on above: Performed By: #### C BC ####[facility] Ebczadwxxm[address] [place], [place] [address]Dr. Abiel Clement Eosinophils/100 WBC (Bld) 2.5 % Normal 0.9-7.0 [facility] Comment on above: Performed By: #### C BC ####[facility] Cxrzsjlatv5661 [place] [address]Dr. Abiel Clement Erythrocyte distribution width (RBC) [Ratio] 14.6 % Normal 11.0-15.0 [facility] Comment on above: Performed By: #### C BC ####[facility] [address] [place], [place] [address]Dr. Abiel Clement Hematocrit (Bld) [Volume fraction] 47.4 % Normal 36.0-48.0 [facility] Comment on above: Performed By: #### C BC ####[facility] Rdicdmwbvq[address] [place], [place] [address]Dr. Abiel Clement Hemoglobin (Bld) [Mass/Vol] 15.4 g/dL Normal 12.0-16.0 [facility] Comment on above: Performed By: #### C BC ####[facility] Ecybrqxvfd[address] [place], [place] [address]Dr. Abiel Clement IG # 0.01 10e3/ul Normal 0.00-0.03 [facility] Comment on above: Performed By: #### C BC ####[facility] Thzkmzw[address] [place], [place] [address]Dr. Abiel Clement IG % 0.2 % Normal 0.0-0.5 [facility] Comment on above: Performed By: #### C BC ####[facility] Dubrwvgzvc[address] [place], [place] [address]Dr. Abiel Clement LYMPH # 1.6 103/ul Normal 1.2-3.8 [facility] Comment on above: Performed By: #### C BC ####[facility] Dpczj[address] [place], [place] [address]Dr. Abiel Clmeent Lymphocytes/100 WBC (Bld) 27.3 % Normal 20.5-60.0 [facility] Comment on above: Performed By: #### C BC ####[facility] [address] [place] [address]Dr. Abiel Urbano MANUAL DIFF REQ NO Normal [facility] Comment on above: Performed By: #### C BC ####[facility] Fqpnzoqrge[address] [place] [address]Dr. Abiel Clement MCH (RBC) [Entitic mass] 28.1 pg Normal 26.7-34.0 [facility] Comment on above: Performed By: #### C BC ####[facility] Pakofitv[address] [place], [place] [address]Dr. Abiel Urbano MCHC (RBC) [Mass/Vol] 32.5 g/dL Normal 29.9-35.2 [facility] Comment on above: Performed By: #### C BC ####[facility] Ltmq[address] [place], [place] [address]Dr. Suyapaviviana Clement MCV (RBC) [Entitic vol] 86.5 fL Normal 81.0-99.0 [facility] Comment on above: Performed By: #### C BC ####[facility] Mgfuupnwsk[address] [place], [place] [address]Dr. Abiel Urbano MONO # 0.5 103/ul Normal 0.3-0.8 [facility] Comment on above: Performed By: #### C BC ####[facility] Cwlv[address]ls[address] [place], [place] [address]Dr. Abiel Clement Monocytes/100 WBC (Bld) 8.5 % Normal 1.7-12.0 [facility] Comment on above: Performed By: #### C BC ####[facility] Y[address]lu[address]qi[address] [place], [place] [address]Dr. Suyapaviviana Urbano NEUT # 3.4 103/ul Normal 1.4-6.5 [facility] Comment on above: Performed By: #### C BC ####[facility] Kvujvcrzsg[address] [place], [place] [address]Dr. Suyapaviviana Clement Neutrophils/100 WBC (Bld) 60.4 % Normal 43.0-75.0 [facility] Comment on above: Performed By: #### C BC ####[facility] Bpfmtwzyks[address] [place], [place] [address]Dr. Abiel Clement Platelet mean volume (Bld) [Entitic vol] 11.6 fL Normal 9.5-13.5 [facility] Comment on above: Performed By: #### C BC ####[facility] [address] [place] [address]Dr. Abiel Clement PLT 257 103/ul Normal 150-450 [facility] Comment on above: Performed By: #### C BC ####[facility] Ulvbjtvvts[address] [place] [address]Dr. Abiel Clement RBC 5.48 106/ul Critically high 4.20-5.40 [facility] Comment on above: Performed By: #### C BC ####[facility] Yfpdzkkxst[address] [place] [address]Dr. Abiel Clement WBC 5.7 103/ul Normal 4.0-11.0 [facility] Comment on above: Performed By: #### C BC ####[facility] [address]gs[address] [place] [address]Dr. Suyapaviviana Clement LIPASEon 11-03-2021 Lipase [Catalytic activity/Vol] 32.0 U/L Normal 23.0-300.0 [facility] Comment on above: Performed By: #### C BENNY PEDERSEN LIPA ####[facility] Qgvcdzwhmt[address] [place] [address]Dr. Abiel Clement PROF 14(COMP METB)on 022 Albumin [Mass/Vol] 3.6 g/dL Normal 3.5-5.0 [facility] Comment on above: Performed By: #### C BENNY PEDERSEN LIPA ####[facility] Wrxjuwvges[address] [place] [address]Dr. Abiel Clement Albumin/Globulin [Mass ratio] 0.8 {ratio} Normal [facility] Comment on above: Performed By: #### C BENNY PEDERSEN LIPA ####[facility] Ytqsvwjckg[address] [place] [address]Dr. Abiel Clement ALP [Catalytic activity/Vol] 325 U/L Critically high 38-126 [facility] Comment on above: Performed By: #### C MP, BENNY, LIPA ####[facility] Rxgqrzkvrm[address] [place] [address]Dr. Abiel Clement ALT [Catalytic activity/Vol] 103 U/L Critically high 9-52 [facility] Comment on above: Performed By: #### C MP, BENNY, LIPA ####[facility] Nhgjmm[address] [place] [address]Dr. Abiel Clement Anion gap [Moles/Vol] 13.1 mmol/L Normal [facility] Comment on above: Performed By: #### C MP, BENNY, LIPA ####[facility] Prscwcsdyc[address] [place] [address]Dr. Abiel Clement AST [Catalytic activity/Vol] 78 U/L Critically high 14-36 [facility] Comment on above: Performed By: #### C MP, BENNY, LIPA ####[facility] Nuzw[address] [place], [place] [address]Dr. Abiel Clement Bilirubin [Mass/Vol] 0.4 mg/dL Normal 0.2-1.3 [facility] Comment on above: Performed By: #### C MP, BENNY, LIPA ####[facility] Dzhx[address]sp[address] [place], [place] [address]Dr. Abiel Clement Calcium [Mass/Vol] 9.6 mg/dL Normal 8.4-10.2 [facility] Comment on above: Performed By: #### C MP, BENNY, LIPA ####[facility] [address]ffbzjb[address] [place] [address]Dr. Abiel Clement Chloride [Moles/Vol] 102 mmol/L Normal 98-107 [facility] Comment on above: Performed By: #### C MP, BENNY, LIPA ####[facility] Djwjjztuf[address] [place], [place] [address]Dr. Abiel Clement CO2 [Moles/Vol] 21.5 mmol/L Critically low 22.0-30.0 [facility] Comment on above: Performed By: #### C MP, BENNY, LIPA ####[facility] Dcnllaqgsx[address] [place], [place] [address]Dr. Abiel Clement Creatinine [Mass/Vol] 1.51 mg/dL Critically high 0.52-1.04 [facility] Comment on above: Performed By: #### C MP, BENNY, LIPA ####[facility] [address] [place] [address]Dr. Abiel Clement EGFR-AF JORDANIAN 42 mL/min/1.73m2 Critically low >=60 [facility] Comment on above: Performed By: #### C MP, BENNY, LIPA ####[facility] Qxomxsajhz[address] [place] [address]Dr. Abiel Clement EGFR-NON AF JORDANIAN 35 mL/min/1.73m2 Critically low >=60 [facility] Comment on above: Performed By: #### C MP, BENNY, LIPA ####[facility] V[address]kn[address] [place] [address]Dr. Abiel Clement Globulin (S) [Mass/Vol] 4.5 g/dL Normal [facility] Comment on above: Performed By: #### C MP, BENNY, LIPA ####[facility] Fwrx[address]hve[address] [place] [address]Dr. Abiel Clement Glucose [Mass/Vol] 167 mg/dL Critically high 74-106 [facility] Comment on above: Performed By: #### C MP, BENNY, LIPA ####[facility] [address]eswtnawzs[address] [place] [address]Dr. Abiel Clement Potassium [Moles/Vol] 4.6 mmol/L Normal 3.4-5.0 [facility] Comment on above: Performed By: #### C MP, BENNY, LIPA ####[facility] [address]xeewwwkd[address] [place] [address]Dr. Abiel Clement Protein [Mass/Vol] 8.1 g/dL Normal 6.1-8.2 [facility] Comment on above: Performed By: #### C MP, BENNY, LIPA ####[facility] L[address]fnxxdhr[address] [place], [place] [address]Dr. Abiel Clement Sodium [Moles/Vol] 132 mmol/L Critically low 137-145 Th e [facility] Comment on above: Performed By: #### C BENNY PEDERSEN LIPA ####[facility] [address] [place], [place] [address]Ev. Abiel Clement Urea nitrogen [Mass/Vol] 35.0 mg/dL Critically high 7.0-17.0 [facility] Comment on above: Performed By: #### C BENNY PEDERSEN LIPA ####[facility] Ptks[address] [place], [place] [address]Qf. Abiel Clement Urea nitrogen/Creatinine [Mass ratio] 23.2 mg/mg Normal [facility] Comment on above: Performed By: #### C BENNY PEDERSEN LIPA ####[facility] [address] [place] [id number]. Abiel Clement XR ABD FLAT UP_PA Tl 11-03 XR ABD FLAT UP_PA CH Normal [facility] XR FOOT LT MIN 3 VIEWSon XR FOOT LT MIN 3 VIEWS Normal [facility] COMPREHENSIVE METABOLIC PANE Neftali 09-23-2021 Albumin [Mass/Vol] 4.1 g/dL Normal 3.6-5.1 [facility] Comment on above: Performed By: #### 1 551, 0910 #### [facility] [place] [address] [employer] Installer: Christian Dove MD Albumin/Globulin [Mass ratio] 1.2 {ratio} Normal 1.0-2.5 [facility] Comment on above: Performed By: #### 1 0231, 2390 #### [facility] [place] [address] [employer] Installer: Christian Dove MD ALP [Catalytic activity/Vol] 206 U/L High 37-153 [facility] Comment on above: Performed By: #### 1 0231, 1340 #### [facility] [place] [address] [employer] Installer: Christian Dove MD ALT [Catalytic activity/Vol] 32 U/L High 6-29 [facility] Comment on above: Result Comment: NO C OLLECTION DATE RECEIVED. WE HAVE USED THE DATE THE SPECIMEN WAS RECEIVED BY THIS LABORATORY THE COLLECTION DATE. IF THIS IS INCORRECT, PLEASE CONTACT CLIENT SERVICES. PHONE NUMBER: [phone] Performed By: #### 1 0231, 7600 #### [facility] of [address], [address] [place] [address] [employer]er: Christian Dove MD AST [Catalytic activity/Vol] 28 U/L Normal 10-35 [facility] Comment on above: Performed By: #### 1 0231, 7600 #### [facility] [address], [address] [place] [address] [employer] Installer: Christian Dove MD Bilirubin [Mass/Vol] 0.5 mg/dL Normal 0.2-1.2 [facility] Comment on above: Performed By: #### 1 023, 7600 #### [facility] [address], [address] [place] [address] [employer] Installer: Christian Dove MD BUN/CREATININE RATIO NOT APPLICABLE Normal 6-22 [facility] Comment on above: Performed By: #### 1 0231, 7600 #### [facility] [place] [address] [employer] Installer: Christian Dove MD Calcium [Mass/Vol] 9.6 mg/dL Normal 8.6-10.4 [facility] Comment on above: Performed By: #### 1 0231, 7600 #### [facility] [address], [address] [place] [address] [employer] Installer: Christian Dove MD Chloride [Moles/Vol] 101 mmol/L Normal 98-110 [facility] Comment on above: Performed By: #### 1 0231, 7600 #### [facility] [address], [address] [place] [address] [employer] Installer: Christian Dove MD CO2 [Moles/Vol] 27 mmol/L Normal 20-32 [facility] Comment on above: Performed By: #### 1 0231, 7600 #### [facility] of [place] [address], [address] [place] [address] [employer] Installer: Christian Dove MD Creatinine [Mass/Vol] 0.88 mg/dL Normal 0.50-0.99 [facility] Comment on above: Result Comment: For patients >49 years of age, the reference limit for Creatinine is approximately 13% higher for people identified as -Kosovan. Performed By: #### 1 023, 7600 #### [facility] [place] [address] [employer] Installer: Christian Dove MD eGFR NON-AFR. JORDANIAN 71 mL/min/1.73m2 Normal > OR = 60 [facility] Comment on above: Performed By: #### 1 023, 7599 #### [facility] [place] [address] [employer] Installer: Christian Dove MD GFR/1.73 sq M.predicted among blacks MDRD (S/P/Bld) [Vol rate/Area] 82 mL/min/{1.73_m2} Normal > OR = 60 [facility] Comment on above: Performed By: #### 1 230, 7599 #### [facility] [place] [address] [employer] Installer: Christian Dove MD Globulin (S) [Mass/Vol] 3.3 g/dL Normal 1.9-3.7 [facility] Comment on above: Performed By: #### 1 023, 7600 #### [facility] [place] [address] [employer] Installer: Christian Dove MD Glucose [Mass/Vol] 269 mg/dL High 65-99 [facility] Comment on above: Result Comment: Fasting reference interval For someone without known diabetes, a glucose value >125 mg/dL indicates that they may have diabetes and this should be confirmed with a follow-up test. Performed By: #### 1 023, 760 #### [facility] [place] [address] [employer] Installer: Christian Dove MD Potassium [Moles/Vol] 4.3 mmol/L Normal 3.5-5.3 [facility] Comment on above: Performed By: #### 1 0231, 7600 #### [facility] of [address], [address] [place] [address] [employer] Installer: Christian Dove MD Protein [Mass/Vol] 7.4 g/dL Normal 6.1-8.1 [facility] Comment on above: Performed By: #### 1 0231, 7600 #### [facility] of [address], [address] [place] [address] [employer] Installer: Christian Dove MD Sodium [Moles/Vol] 135 mmol/L Normal 135-146 [facility] Comment on above: Performed By: #### 1 023, 0 #### [facility] of [place] [address] [employer] Installer: Christian Dove MD Urea nitrogen [Mass/Vol] 18 mg/dL Normal 7-25 [facility] Comment on above: Performed By: #### 1 023, 0 #### [facility] of [place] [address] [employer] Installer: Christian Dove MD LIPID PANEL, [facility] 09-05 Cholesterol [Mass/Vol] 123 mg/dL Normal <200 [facility] Comment on above: Performed By: #### 1 0231, 7600 #### [facility] of [place] [address] [employer] Installer: Christian Dove MD Cholesterol in HDL [Mass/Vol] 36 mg/dL Low > OR = 50 [facility] Comment on above: Performed By: #### 1 0231, 7600 #### [facility] of [place] [address] [employer] Installer: Christian Dove MD Cholesterol in LDL [Mass/Vol] 65 mg/dL Normal [facility] Comment on above: Result Comment: Refe rence range: <100 Desirable range <100 mg/dL for primary prevention; <70 mg/dL for patients with CHD or diabetic patients with > or = 2 CHD risk factors. LDL-C is now calculated using the Vita calculation, which is a validated novel method providing better accuracy than the Friedewald equation in the estimation of LDL-C. Ciro PENN et al. MARIA T. 2013;310(19): 0874-2825 (http://education.[employer].InvitedHome/faq/SCC363) Performed By: #### 1 0231, 7600 #### [facility] [address], [address] [place] [address] [employer] Installer: Christian Dove MD Cholesterol.total/Cho lesterol in HDL [Mass ratio] 3.4 {ratio} Normal <5.0 [facility] Comment on above: Performed By: #### 1 023, 0 #### [facility] [address], [address] [place] [address] [employer] Installer: Christian Dove MD NON HDL CHOLESTEROL 87 mg/dL (calc) Normal <130 [facility] Comment on above: Result Comment: For patients with diabetes plus 1 major ASCVD risk factor, treating to a non-HDL-C goal of <100 mg/dL (LDL-C of <70 mg/dL) is considered a therapeutic option. Performed By: #### 1 023, 7600 #### [facility] [address], [address] [place] [address] [employer] Installer: Christian Dove MD Triglyceride [Mass/Vol] 134 mg/dL Normal <150 [facility] Comment on above: Performed By: #### 1 023, 7600 #### [facility] [address], [address] [place] [address] [employer] Installer: Christian Dove MD COVID Quick Testingon 2020 Result Positive Novapost Other POC GLUCOSE LABon 07-14-2020 Glucose [Mass/Vol] 311 mg/dL High 70-100 [facility] Comment on above: Performed By: #### 8 4841 #### [facility] [address] [place] [address], [place] Glucose [Mass/Vol] 231 mg/dL High 70-100 [facility] Comment on above: Performed By: #### 8 5499 #### [facility] [address] [place] [address], [place] POC GLUCOSE LABon 07-13-2020 Glucose [Mass/Vol] 173 mg/dL High 70-100 [facility] Comment on above: Performed By: #### 8 5499 #### [facility] [address] [place] [address], [place] Glucose [Mass/Vol] 117 mg/dL High 70-100 [facility] Comment on above: Performed By: #### 3 1792 #### [facility] [address] [place] [address], [place] Glucose [Mass/Vol] 282 mg/dL High 70-100 [facility] Comment on above: Performed By: #### 8 5499 #### [facility] [address] [place] [address], [place] Glucose [Mass/Vol] 288 mg/dL High 70-100 [facility] Comment on above: Performed By: #### 8 5499 ####[facility] [place] [address], [place] POC GLUCOSE LABon 07-12-2020 Glucose [Mass/Vol] 281 mg/dL High 70-100 [facility] Comment on above: Performed By: #### 8 5499 ####[facility] [place] [address], [place] Glucose [Mass/Vol] 102 mg/dL High 70-100 [facility] Comment on above: Performed By: #### 8 5499 ####[facility] [place] [address], [place] Glucose [Mass/Vol] 213 mg/dL High 70-100 The [facility] Comment on above: Performed By: #### 8 5499 ####[facility] [place] [address], [place] Glucose [Mass/Vol] 195 mg/dL High 70-100 [facility] Comment on above: Performed By: #### 3 1792 #### [facility] [address] [place] [address], [place] POC GLUCOSE LABon 07-11-2020 Glucose [Mass/Vol] 221 mg/dL High 70-100 [facility] Comment on above: Performed By: #### 8 5499 #### [facility] [address] [place] [address], [place] Glucose [Mass/Vol] 201 mg/dL High 70-100 [facility] Comment on above: Performed By: #### 0 0071, 59953 #### [facility] [address] [place] [address], [place] Glucose [Mass/Vol] 279 mg/dL High 70-100 [facility] Comment on above: Performed By: #### 8 5499 ####[facility] [place] [address], [place] Glucose [Mass/Vol] 214 mg/dL High 70-100 [facility] Comment on above: Performed By: #### 3 1792 #### [facility] [address] [place] [address], [place] POC GLUCOSE LABon 07-10-2020 Glucose [Mass/Vol] 207 mg/dL High 70-100 [facility] Comment on above: Performed By: #### 8 5499 #### [facility] [address] [place] [address], [place] Glucose [Mass/Vol] 119 mg/dL High 70-100 [facility] Comment on above: Performed By: #### 8 5499 #### [facility] [address] [place] [address], [place] Glucose [Mass/Vol] 282 mg/dL High 70-100 [facility] Comment on above: Performed By: #### 8 5499 #### [facility] [address] [place] [address], [place] Glucose [Mass/Vol] 212 mg/dL High 70-100 [facility] Comment on above: Performed By: #### 8 5499 #### [facility] [address] [place] [address], [place] POC GLUCOSE LABon 07-09-2020 Glucose [Mass/Vol] 134 mg/dL High 70-100 The [facility] Comment on above: Performed By: #### 8 5499 ####[facility] [place] [address], [place] Glucose [Mass/Vol] 113 mg/dL High 70-100 The [facility] Comment on above: Performed By: #### 8 5499 ####[facility] [place] [address], [place] Glucose [Mass/Vol] 158 mg/dL High 70-100 The [facility] Comment on above: Performed By: #### 8 5499 ####[facility] [place] [address], [place] Glucose [Mass/Vol] 146 mg/dL High 70-100 The [facility] Comment on above: Performed By: #### 3 1792 #### [facility] [address] [place] [address], [place] BASIC METABOLIC PANELon 11-0 Calcium [Mass/Vol] 9.4 mg/dL Normal 8.6-10.3 [facility] Comment on above: Order Comment: No: D o not add to previous draw Performed By: #### 0 0071, 20398 #### [facility] [address] [place] [address], [place] Chloride [Moles/Vol] 102 mmol/L Normal 98-107 [facility] Comment on above: Order Comment: No: D o not add to previous draw Performed By: #### 0 0071, 11871 #### [facility] [address] [place] [address], [place] CO2 [Moles/Vol] 28 mmol/L Normal 21-31 The [facility] Comment on above: Order Comment: No: D o not add to previous draw Performed By: #### 0 0071, 48850 #### [facility] [address] [place] [address], [place] Creatinine [Mass/Vol] 0.73 mg/dL Normal 0.60-1.20 [facility] Comment on above: Order Comment: No: D o not add to previous draw Performed By: #### 0 0071, 04373 #### [facility] [address] [place] [address], [place] GFR/1.73 sq M predicted among blacks MDRD (S/P/Bld) [Vol rate/Area] mL/min/{1.73_m2} Normal >60 [facility] Comment on above: Order Comment: No: D o not add to previous draw Performed By: #### 0 0071, 11363 #### [facility] [address] [place] [address], [place] GFR/1.73 sq M predicted among non-blacks MDRD (S/P/Bld) [Vol rate/Area] mL/min/{1.73_m2} Normal >60 [facility] Comment on above: Order Comment: No: D o not add to previous draw Performed By: #### 0 0071, 73469 #### [facility] [address] [place] [address], [facility] Glucose [Mass/Vol] 162 mg/dL High 70-100 The [facility] Comment on above: Order Comment: No: D o not add to previous draw Performed By: #### 0 0071, 43080 #### [facility] [address] [place] [address], [facility] Potassium [Moles/Vol] 3.8 mmol/L Normal 3.5-5.1 [facility] Comment on above: Order Comment: No: D o not add to previous draw Performed By: #### 0 0071, 40429 #### [facility] [address] [place] [address], [facility] Sodium [Moles/Vol] 138 mmol/L Normal 136-145 The [facility] Comment on above: Order Comment: No: D o not add to previous draw Performed By: #### 0 0071, 26359 #### [facility] [address] [place] [address], [facility] Urea nitrogen [Mass/Vol] 15 mg/dL Normal 7-25 [facility] Comment on above: Order Comment: No: D o not add to previous draw Performed By: #### 0 0071, 00906 #### [facility] [address] [facility] [place] [address], [facility] CBC W/DIFFon 07-08-2020 ABS BASOPHILS 0.1 10*3/uL Normal 0.0-0.2 The [facility] Comment on above: Order Comment: No: D o not add to previous draw Performed By: #### 8 5499 #### [facility] [address] [place] [address], [facility] ABS IMM GRANS 0.0 10*3/uL Normal 0.0-0.2 The [facility] Comment on above: Order Comment: No: D o not add to previous draw Performed By: #### 8 5499 #### [facility] [address] [place] [address], [facility] ABS NEUTROPHILS 3.5 10*3/uL Normal 1.6-7.6 The [facility] Comment on above: Order Comment: No: D o not add to previous draw Performed By: #### 8 5499 #### [facility] [address] [place] [address], [facility] Basophils/100 WBC (Bld) 0.9 % Normal 0.0-1.0 [facility] Comment on above: Order Comment: No: D o not add to previous draw Performed By: #### 8 5499 #### [facility] [facility] [address] [place] [address], [facility] Eosinophils (Bld) [#/Vol] 0.3 10*3/uL Normal 0.0-0.5 [facility] Comment on above: Order Comment: No: D o not add to previous draw Performed By: #### 8 [id number] #### [facility] [address] [place] [address], [facility] Eosinophils/100 WBC (Bld) 3.9 % Normal 0.0-6.0 [facility] Comment on above: Order Comment: No: D o not add to previous draw Performed By: #### 8 [id number] #### [facility] [address] [facility] [place] [address], [facility] Erythrocyte distribution width (RBC) [Ratio] 15.1 % High 11.5-15.0 [facility] Comment on above: Order Comment: No: D o not add to previous draw Performed By: #### 8 [id number] #### [facility] [address] [place] [id number], [facility] Hematocrit (Bld) [Volume fraction] 41.0 % Normal 36.0-45.0 [facility] Comment on above: Order Comment: No: D o not add to previous draw Performed By: #### 8 [id number] #### [facility] [address] [place] [address], [facility] Hemoglobin (Bld) [Mass/Vol] 13.0 g/dL Normal 12.0-15.0 [facility] Comment on above: Order Comment: No: D o not add to previous draw Performed By: #### 8 [id number] #### [facility] [address] [place] [address], [facility] IMMATURE GRANS 0.5 % Normal 0.0-1.0 [facility] Comment on above: Order Comment: No: D o not add to previous draw Performed By: #### 8 [id number] #### [facility] [address] [facility] [place] [address], [facility] Lymphocytes (Bld) [#/Vol] 1.8 10*3/uL Normal 1.2-4.0 [facility] Comment on above: Order Comment: No: D o not add to previous draw Performed By: #### 8 [id number] #### [facility] [address] [place] [address], [facility] Lymphocytes/100 WBC (Bld) 28.2 % Normal 20.0-45.0 [facility] Comment on above: Order Comment: No: D o not add to previous draw Performed By: #### 8 [id number] #### [facility] [address] [place] [address], [facility] MCH (RBC) [Entitic mass] 28.6 pg Normal 27.0-33.0 [facility] Comment on above: Order Comment: No: D o not add to previous draw Performed By: #### 8 [id number] #### [facility] [address] [place] [address], [facility] MCHC (RBC) [Mass/Vol] 31.7 g/dL Low 32.0-35.0 [facility] Comment on above: Order Comment: No: D o not add to previous draw Performed By: #### 8 [id number] #### [facility] [address] [place] [address], [facility] MCV (RBC) [Entitic vol] 90.3 fL Normal 82.0-98.0 [facility] Comment on above: Order Comment: No: D o not add to previous draw Performed By: #### 8 [id number] #### [facility] [address] [place] [address], [facility] Monocytes (Bld) [#/Vol] 0.7 10*3/uL Normal 0.1-1.0 [facility] Comment on above: Order Comment: No: D o not add to previous draw Performed By: #### 8 [id number] #### [facility] [address] [facility] [place] [address], [facility] MONOS 11.1 % Normal 5.0-12.0 [facility] Comment on above: Order Comment: No: D o not add to previous draw Performed By: #### 8 [id number] #### [facility] [address] [facility] [place] [address], [facility] Neutrophils/100 WBC (Bld) 55.4 % Normal 40.0-72.0 [facility] Comment on above: Order Comment: No: D o not add to previous draw Performed By: #### 8 [id number] #### [facility] [address] [place] [id number], [facility] Nucleated RBC/100 WBC (Bld) [Ratio] 0 % Normal 0-0 [facility] Comment on above: Order Comment: No: D o not add to previous draw Performed By: #### 8 [id number] #### [facility] [address] [place] [id number], [facility] PLAT CNT 230 10*3/uL Normal 150-[address] [facility] Comment on above: Order Comment: No: D o not add to previous draw Performed By: #### 8 [id number] #### [facility] [address] [place] [id number], [facility] RBC (Bld) [#/Vol] 4.54 10*6/uL Normal 3.80-5.00 The [facility] Comment on above: Order Comment: No: D o not add to previous draw Performed By: #### 8 5499 #### [facility] [address] [place] [address], [place] WBC (Bld) [#/Vol] 6.38 10*3/uL Normal 4.00-10.60 The [facility] Comment on above: Order Comment: No: D o not add to previous draw Performed By: #### 8 [id number] #### [facility] [address] [place] [address], [place] POC GLUCOSE LABon 07-08-2020 Glucose [Mass/Vol] 164 mg/dL High 70-100 [facility] Comment on above: Performed By: #### 8 5499 #### [facility] [address] [place] [address], [place] Glucose [Mass/Vol] 137 mg/dL High 70-100 [facility] Comment on above: Performed By: #### 8 5499 ####[facility] [place] [address], [place] Glucose [Mass/Vol] 247 mg/dL High 70-100 [facility] Comment on above: Performed By: #### 8 5499 ####[facility] [place] [address], [place] Glucose [Mass/Vol] 154 mg/dL High 70-100 [facility] Comment on above: Performed By: #### 8 5499 ####[facility] [place] [address], [place] Glucose [Mass/Vol] 158 mg/dL High 70-100 [facility] Comment on above: Performed By: #### 8 5499 #### [facility] [address] [place] [address], [place] POC GLUCOSE LABon 07-07-2020 Glucose [Mass/Vol] 144 mg/dL High 70-100 [facility] Comment on above: Performed By: #### 3 1792 #### [facility] [address] [place] [address], [place] Glucose [Mass/Vol] 184 mg/dL High 70-100 The [facility] Comment on above: Performed By: #### 8 [id number] ####[facility] [place] [address], [place] Glucose [Mass/Vol] 171 mg/dL High 70-100 The [facility] Comment on above: Performed By: #### 8 5499 ####[facility] [place] [address], [place] Glucose [Mass/Vol] 98 mg/dL Normal 70-100 The [facility] Comment on above: Performed By: #### 8 5499 #### [facility] [address] [place] [address], [place] POC GLUCOSE LABon 07-06-2020 Glucose [Mass/Vol] 220 mg/dL High 70-100 [facility] Comment on above: Performed By: #### 8 5499 ####[facility] [place] [address], [place] Glucose [Mass/Vol] 215 mg/dL High 70-100 [facility] Comment on above: Performed By: #### 8 5499 ####[facility] [place] [address], [place] Glucose [Mass/Vol] 288 mg/dL High 70-100 [facility] Comment on above: Performed By: #### 3 1792 #### [facility] [address] [place] [address], [place] POC GLUCOSE LABon 10-31-2020 Glucose [Mass/Vol] 111 mg/dL High 70-100 The [facility] Comment on above: Performed By: #### 8 5499 #### [facility] [address] [place] [address], [place] Glucose [Mass/Vol] 144 mg/dL High 70-100 The [facility] Comment on above: Performed By: #### 8 5499 #### [facility] [address] [place] [address], [place] Glucose [Mass/Vol] 151 mg/dL High 70-100 The [facility] Comment on above: Performed By: #### 8 5499 ####[facility] [place] [address], [place] Glucose [Mass/Vol] 157 mg/dL High 70-100 The [facility] Comment on above: Performed By: #### 8 5499 ####[facility] [place] [address], [place] Glucose [Mass/Vol] 154 mg/dL High 70-100 The [facility] Comment on above: Performed By: #### 8 5499 ####[facility] [place] [address], [place] BASIC METABOLIC PANELon 10-3 Calcium [Mass/Vol] 9.2 mg/dL Normal 8.6-10.3 The [facility] Comment on above: Order Comment: No: D o not add to previous draw Performed By: #### 0 0071, 73780 #### [facility] [address] [place] [address], [place] Chloride [Moles/Vol] 101 mmol/L Normal 98-107 [facility] Comment on above: Order Comment: No: D o not add to previous draw Performed By: #### 0 0071, 00739 #### [facility] [address] [place] [address], [place] CO2 [Moles/Vol] 26 mmol/L Normal 21-31 The [facility] Comment on above: Order Comment: No: D o not add to previous draw Performed By: #### 0 0071, 64855 #### [facility] [address] [place] [address], [place] Creatinine [Mass/Vol] 0.75 mg/dL Normal 0.60-1.20 [facility] Comment on above: Order Comment: No: D o not add to previous draw Performed By: #### 0 0071, 85084 #### [facility] [address] [place] [address], [place] GFR/1.73 sq M predicted among blacks MDRD (S/P/Bld) [Vol rate/Area] mL/min/{1.73_m2} Normal >60 [facility] Comment on above: Order Comment: No: D o not add to previous draw Performed By: #### 0 0071, 74490 #### [facility] [address] [place] [address], [place] GFR/1.73 sq M predicted among non-blacks MDRD (S/P/Bld) [Vol rate/Area] mL/min/{1.73_m2} Normal >60 [facility] Comment on above: Order Comment: No: D o not add to previous draw Performed By: #### 0 0071, 03115 #### [facility] [address] [place] [address], [place] Glucose [Mass/Vol] 343 mg/dL High 70-100 [facility] Comment on above: Order Comment: No: D o not add to previous draw Performed By: #### 0 0071, 46290 #### [facility] [address] [place] [address], [place] Potassium [Moles/Vol] 3.6 mmol/L Normal 3.5-5.1 [facility] Comment on above: Order Comment: No: D o not add to previous draw Performed By: #### 0 0071, 26255 #### [facility] [address] [place] [address], [facility] Sodium [Moles/Vol] 137 mmol/L Normal 136-145 The [facility] Comment on above: Order Comment: No: D o not add to previous draw Performed By: #### 0 0071, 75422 #### [facility] [address] [place] [id number], [facility] Urea nitrogen [Mass/Vol] 15 mg/dL Normal 7-25 [facility] Comment on above: Order Comment: No: D o not add to previous draw Performed By: #### 0 0071, 11253 #### [facility] [address] [facility] [place] [address], [facility] CBC W/DIFFon 07-04-2020 ABS BASOPHILS 0.0 10*3/uL Normal 0.0-0.2 The [facility] Comment on above: Order Comment: No: D o not add to previous draw Performed By: #### 8 5499 #### [facility] [address] [facility] [place] [address], [facility] ABS IMM GRANS 0.0 10*3/uL Normal 0.0-0.2 The [facility] Comment on above: Order Comment: No: D o not add to previous draw Performed By: #### 8 5499 #### [facility] [address] [place] [address], [facility] ABS NEUTROPHILS 4.0 10*3/uL Normal 1.6-7.6 The [facility] Comment on above: Order Comment: No: D o not add to previous draw Performed By: #### 8 5499 #### [facility] [address] [place] [id number], [facility] Basophils/100 WBC (Bld) 0.7 % Normal 0.0-1.0 [facility] Comment on above: Order Comment: No: D o not add to previous draw Performed By: #### 8 5499 #### [facility] [address] [place] [address], [facility] Eosinophils (Bld) [#/Vol] 0.3 10*3/uL Normal 0.0-0.5 [facility] Comment on above: Order Comment: No: D o not add to previous draw Performed By: #### 8 5499 #### [facility] [address] [place] [id number], [facility] Eosinophils/100 WBC (Bld) 4.7 % Normal 0.0-6.0 [facility] Comment on above: Order Comment: No: D o not add to previous draw Performed By: #### 8 5499 #### [facility] [address] [place] [address], [facility] Erythrocyte distribution width (RBC) [Ratio] 15.0 % Normal 11.5-15.0 [facility] Comment on above: Order Comment: No: D o not add to previous draw Performed By: #### 8 5499 #### [facility] [address] [facility] [place] [id number], [facility] Hematocrit (Bld) [Volume fraction] 38.0 % Normal 36.0-45.0 [facility] Comment on above: Order Comment: No: D o not add to previous draw Performed By: #### 8 5499 #### [facility] [address] [place] [address], [facility] Hemoglobin (Bld) [Mass/Vol] 12.4 g/dL Normal 12.0-15.0 [facility] Comment on above: Order Comment: No: D o not add to previous draw Performed By: #### 8 5499 #### [facility] [address] [place] [address], [place] IMMATURE GRANS 0.3 % Normal 0.0-1.0 [facility] Comment on above: Order Comment: No: D o not add to previous draw Performed By: #### 8 5499 #### [facility] [address] [place] [id number], [facility] Lymphocytes (Bld) [#/Vol] 1.1 10*3/uL Low 1.2-4.0 [facility] Comment on above: Order Comment: No: D o not add to previous draw Performed By: #### 8 5499 #### [facility] [address] [place] [id number], [facility] Lymphocytes/100 WBC (Bld) 18.1 % Low 20.0-45.0 [facility] Comment on above: Order Comment: No: D o not add to previous draw Performed By: #### 8 5499 #### [facility] [address] [place] [id number], [facility] MCH (RBC) [Entitic mass] 29.1 pg Normal 27.0-33.0 [facility] Comment on above: Order Comment: No: D o not add to previous draw Performed By: #### 8 5499 #### [facility] [address] [facility] [place] [id number], [facility] MCHC (RBC) [Mass/Vol] 32.6 g/dL Normal 32.0-35.0 [facility] Comment on above: Order Comment: No: D o not add to previous draw Performed By: #### 8 5499 #### [facility] [address] [place] [id number], [facility] MCV (RBC) [Entitic vol] 89.2 fL Normal 82.0-98.0 [facility] Comment on above: Order Comment: No: D o not add to previous draw Performed By: #### 8 5499 #### [facility] [address] [place] [id number], [facility] Monocytes (Bld) [#/Vol] 0.6 10*3/uL Normal 0.1-1.0 [facility] Comment on above: Order Comment: No: D o not add to previous draw Performed By: #### 8 5499 #### [facility] [address] [place] [address], [facility] MONOS 9.6 % Normal 5.0-12.0 [facility] Comment on above: Order Comment: No: D o not add to previous draw Performed By: #### 8 5499 #### [facility] [address] [place] [id number], [facility] Neutrophils/100 WBC (Bld) 66.6 % Normal 40.0-72.0 [facility] Comment on above: Order Comment: No: D o not add to previous draw Performed By: #### 8 5499 #### [facility] [address] [place] [id number], [facility] Nucleated RBC/100 WBC (Bld) [Ratio] 0 % Normal 0-0 [facility] Comment on above: Order Comment: No: D o not add to previous draw Performed By: #### 8 5499 #### [facility] [address] [place] [address], [facility] PLAT CNT 186 10*3/uL Normal 150-[address] [facility] Comment on above: Order Comment: No: D o not add to previous draw Performed By: #### 8 5499 #### [facility] [address] [place] [id number], [facility] RBC (Bld) [#/Vol] 4.26 10*6/uL Normal 3.80-5.00 The [facility] Comment on above: Order Comment: No: D o not add to previous draw Performed By: #### 8 5499 #### [facility] [address] [place] [id number], [place] WBC (Bld) [#/Vol] 5.96 10*3/uL Normal 4.00-10.60 [facility] Comment on above: Order Comment: No: D o not add to previous draw Performed By: #### 8 5499 #### [facility] [address] [place] [address], [place] MAGNESIUM BLOODon 07-04-2020 Magnesium [Mass/Vol] 1.7 mg/dL Low 1.9-2.7 [facility] Comment on above: Order Comment: No: D o not add to previous draw Performed By: #### 0 0071, 09934 #### [facility] [address] [place] [address], [place] POC GLUCOSE LABon 07-04-2020 Glucose [Mass/Vol] 143 mg/dL High 70-100 The [facility] Comment on above: Performed By: #### 8 5499 #### [facility] [address] [place] [address], [place] Glucose [Mass/Vol] 226 mg/dL High 70-100 The [facility] Comment on above: Performed By: #### 3 1792 #### [facility] [address] [place] [address], [place] Glucose [Mass/Vol] 340 mg/dL High 70-100 The [facility] Comment on above: Performed By: #### 8 5499 #### [facility] [address] [place] [address], [place] BASIC METABOLIC PANELon 06-06 Calcium [Mass/Vol] 9.1 mg/dL Normal 8.6-10.3 The [facility] Comment on above: Order Comment: No: D o not add to previous draw Performed By: #### 0 0071, 36074 #### [facility] [address] [place] [address], [place] Chloride [Moles/Vol] 104 mmol/L Normal 98-107 [facility] Comment on above: Order Comment: No: D o not add to previous draw Performed By: #### 0 0071, 33634 #### [facility] [address] [place] [address], [place] CO2 [Moles/Vol] 27 mmol/L Normal 21-31 The [facility] Comment on above: Order Comment: No: D o not add to previous draw Performed By: #### 0 0071, 14385 #### [facility] [address] [place] [address], [place] Creatinine [Mass/Vol] 0.69 mg/dL Normal 0.60-1.20 [facility] Comment on above: Order Comment: No: D o not add to previous draw Performed By: #### 0 0071, 97007 #### [facility] [address] [place] [address], [place] GFR/1.73 sq M predicted among blacks MDRD (S/P/Bld) [Vol rate/Area] mL/min/{1.73_m2} Normal >60 [facility] Comment on above: Order Comment: No: D o not add to previous draw Performed By: #### 0 0071, 76203 #### [facility] [address] [place] [address], [place] GFR/1.73 sq M predicted among non-blacks MDRD (S/P/Bld) [Vol rate/Area] mL/min/{1.73_m2} Normal >60 [facility] Comment on above: Order Comment: No: D o not add to previous draw Performed By: #### 0 0071, 29929 #### [facility] [address] [place] [address], [place] Glucose [Mass/Vol] 192 mg/dL High 70-100 [facility] Comment on above: Order Comment: No: D o not add to previous draw Performed By: #### 0 0071, 04389 #### [facility] [address] [place] [address], [place] Potassium [Moles/Vol] 3.2 mmol/L Low 3.5-5.1 [facility] Comment on above: Order Comment: No: D o not add to previous draw Performed By: #### 0 0071, 04293 #### [facility] [address] [place] [address], [facility] Sodium [Moles/Vol] 139 mmol/L Normal 136-145 The [facility] Comment on above: Order Comment: No: D o not add to previous draw Performed By: #### 0 0071, 19747 #### [facility] [address] [place] [address], [facility] Urea nitrogen [Mass/Vol] 13 mg/dL Normal 7-25 [facility] Comment on above: Order Comment: No: D o not add to previous draw Performed By: #### 0 0071, 39920 #### [facility] [address] [place] [address], [facility] CBC W/DIFFon 07-03-2020 ABS BASOPHILS 0.1 10*3/uL Normal 0.0-0.2 The [facility] Comment on above: Order Comment: No: D o not add to previous draw Performed By: #### 8 5499 #### [facility] [address] [facility] [place] [address], [facility] ABS IMM GRANS 0.0 10*3/uL Normal 0.0-0.2 The [facility] Comment on above: Order Comment: No: D o not add to previous draw Performed By: #### 8 5499 #### [facility] [address] [place] [address], [facility] ABS NEUTROPHILS 3.7 10*3/uL Normal 1.6-7.6 The [facility] Comment on above: Order Comment: No: D o not add to previous draw Performed By: #### 8 5499 #### [facility] [address] [place] [id number], [facility] Basophils/100 WBC (Bld) 0.8 % Normal 0.0-1.0 [facility] Comment on above: Order Comment: No: D o not add to previous draw Performed By: #### 8 5499 #### [facility] [address] [place] [address], [facility] Eosinophils (Bld) [#/Vol] 0.3 10*3/uL Normal 0.0-0.5 [facility] Comment on above: Order Comment: No: D o not add to previous draw Performed By: #### 8 5499 #### [facility] [address] [place] [address], [facility] Eosinophils/100 WBC (Bld) 4.4 % Normal 0.0-6.0 [facility] Comment on above: Order Comment: No: D o not add to previous draw Performed By: #### 8 5499 #### [facility] [address] [place] [address], [facility] Erythrocyte distribution width (RBC) [Ratio] 14.7 % Normal 11.5-15.0 [facility] Comment on above: Order Comment: No: D o not add to previous draw Performed By: #### 8 5499 #### [facility] [address] [facility] [place] [address], [facility] Hematocrit (Bld) [Volume fraction] 38.4 % Normal 36.0-45.0 [facility] Comment on above: Order Comment: No: D o not add to previous draw Performed By: #### 8 5499 #### [facility] [address] [place] [address], [facility] Hemoglobin (Bld) [Mass/Vol] 12.2 g/dL Normal 12.0-15.0 [facility] Comment on above: Order Comment: No: D o not add to previous draw Performed By: #### 8 5499 #### [facility] [address] [place] [address], [facility] IMMATURE GRANS 0.5 % Normal 0.0-1.0 [facility] Comment on above: Order Comment: No: D o not add to previous draw Performed By: #### 8 5499 #### [facility] [address] [place] [address], [facility] Lymphocytes (Bld) [#/Vol] 1.3 10*3/uL Normal 1.2-4.0 [facility] Comment on above: Order Comment: No: D o not add to previous draw Performed By: #### 8 5499 #### [facility] [address] [place] [address], [facility] Lymphocytes/100 WBC (Bld) 22.0 % Normal 20.0-45.0 [facility] Comment on above: Order Comment: No: D o not add to previous draw Performed By: #### 8 5499 #### [facility] [address] [place] [address], [facility] MCH (RBC) [Entitic mass] 28.6 pg Normal 27.0-33.0 [facility] Comment on above: Order Comment: No: D o not add to previous draw Performed By: #### 8 [id number] #### [facility] [address] [facility] [place] [address], [facility] MCHC (RBC) [Mass/Vol] 31.8 g/dL Low 32.0-35.0 [facility] Comment on above: Order Comment: No: D o not add to previous draw Performed By: #### 8 5499 #### [facility] [address] [place] [id number], [facility] MCV (RBC) [Entitic vol] 90.1 fL Normal 82.0-98.0 [facility] Comment on above: Order Comment: No: D o not add to previous draw Performed By: #### 8 [id number] #### [facility] [address] [place] [id number], [facility] Monocytes (Bld) [#/Vol] 0.7 10*3/uL Normal 0.1-1.0 [facility] Comment on above: Order Comment: No: D o not add to previous draw Performed By: #### 8 5499 #### [facility] [address] [place] [address], [facility] MONOS 11.1 % Normal 5.0-12.0 [facility] Comment on above: Order Comment: No: D o not add to previous draw Performed By: #### 8 5499 #### [facility] [address] [place] [address], [facility] Neutrophils/100 WBC (Bld) 61.2 % Normal 40.0-72.0 [facility] Comment on above: Order Comment: No: D o not add to previous draw Performed By: #### 8 5499 #### [facility] [address] [place] [address], [facility] Nucleated RBC/100 WBC (Bld) [Ratio] 0 % Normal 0-0 [facility] Comment on above: Order Comment: No: D o not add to previous draw Performed By: #### 8 5499 #### [facility] [address] [facility] [place] [id number], [place] PLAT CNT 193 10*3/uL Normal 150-[address] [facility] Comment on above: Order Comment: No: D o not add to previous draw Performed By: #### 8 5499 #### [facility] [address] [place] [id number], [facility] RBC (Bld) [#/Vol] 4.26 10*6/uL Normal 3.80-5.00 [facility] Comment on above: Order Comment: No: D o not add to previous draw Performed By: #### 8 5499 #### [facility] [address] [place] [address], [place] WBC (Bld) [#/Vol] 5.96 10*3/uL Normal 4.00-10.60 [facility] Comment on above: Order Comment: No: D o not add to previous draw Performed By: #### 8 5499 #### [facility] [address] [place] [address], [facility] POC GLUCOSE LABon 07-03-2020 Glucose [Mass/Vol] 161 mg/dL High 70-100 The [facility] Comment on above: Performed By: #### 8 5499 #### [facility] [address] [place] [address], [facility] BASIC METABOLIC PANELon 06-06 Calcium [Mass/Vol] 8.5 mg/dL Low 8.6-10.3 [facility] Comment on above: Order Comment: No: D o not add to previous draw Performed By: #### 0 0071, 27991 #### [facility] [address] [place] [address], [place] Chloride [Moles/Vol] 103 mmol/L Normal 98-107 [facility] Comment on above: Order Comment: No: D o not add to previous draw Performed By: #### 0 0071, 51134 #### [facility] [address] [place] [address], [place] CO2 [Moles/Vol] 24 mmol/L Normal 21-31 [facility] Comment on above: Order Comment: No: D o not add to previous draw Performed By: #### 0 0071, 07806 #### [facility] [address] [place] [address], [place] Creatinine [Mass/Vol] 0.76 mg/dL Normal 0.60-1.20 [facility] Comment on above: Order Comment: No: D o not add to previous draw Performed By: #### 0 0071, 22424 #### [facility] [address] [place] [address], [place] GFR/1.73 sq M predicted among blacks MDRD (S/P/Bld) [Vol rate/Area] mL/min/{1.73_m2} Normal >60 [facility] Comment on above: Order Comment: No: D o not add to previous draw Performed By: #### 0 0071, 09033 #### [facility] [address] [place] [address], [place] GFR/1.73 sq M predicted among non-blacks MDRD (S/P/Bld) [Vol rate/Area] mL/min/{1.73_m2} Normal >60 [facility] Comment on above: Order Comment: No: D o not add to previous draw Performed By: #### 0 0071, 94350 #### [facility] [address] [place] [address], [place] Glucose [Mass/Vol] 224 mg/dL High 70-100 [facility] Comment on above: Order Comment: No: D o not add to previous draw Performed By: #### 0 0071, 94305 #### [facility] [address] [place] [address], [place] Potassium [Moles/Vol] 4.0 mmol/L Normal 3.5-5.1 [facility] Comment on above: Order Comment: No: D o not add to previous draw Performed By: #### 0 0071, 37880 #### [facility] [address] [place] [address], [place] Sodium [Moles/Vol] 134 mmol/L Low 136-145 [facility] Comment on above: Order Comment: No: D o not add to previous draw Performed By: #### 0 0071, 75088 #### [facility] [address] [place] [address], [place] Urea nitrogen [Mass/Vol] 16 mg/dL Normal 7-25 [facility] Comment on above: Order Comment: No: D o not add to previous draw Performed By: #### 0 0071, 95040 #### [facility] [address] CBC W/DIFFon 07-02-2020 ABS BASOPHILS 0.1 10*3/uL Normal 0.0-0.2 [facility] Comment on above: Order Comment: No: D o not add to previous draw Performed By: #### 0 0071, 93830 #### [facility] [address] [place] [address], [facility] ABS IMM GRANS 0.1 10*3/uL Normal 0.0-0.2 [facility] Comment on above: Order Comment: No: D o not add to previous draw Performed By: #### 0 0071, 57695 #### [facility] [address] [place] [address], [facility] ABS NEUTROPHILS 6.5 10*3/uL Normal 1.6-7.6 The [facility] Comment on above: Order Comment: No: D o not add to previous draw Performed By: #### 0 0071, 00560 #### [facility] [address] [place] [address], [facility] Basophils/100 WBC (Bld) 0.7 % Normal 0.0-1.0 [facility] Comment on above: Order Comment: No: D o not add to previous draw Performed By: #### 0 0071, 30503 #### [facility] [address] [place] [address], [facility] Eosinophils (Bld) [#/Vol] 0.2 10*3/uL Normal 0.0-0.5 [facility] Comment on above: Order Comment: No: D o not add to previous draw Performed By: #### 0 0071, 84331 #### [facility] [address] [place] [address], [facility] Eosinophils/100 WBC (Bld) 2.5 % Normal 0.0-6.0 [facility] Comment on above: Order Comment: No: D o not add to previous draw Performed By: #### 0 0071, 88929 #### [facility] [address] [place] [address], [facility] Erythrocyte distribution width (RBC) [Ratio] 14.9 % Normal 11.5-15.0 [facility] Comment on above: Order Comment: No: D o not add to previous draw Performed By: #### 0 0071, 59411 #### [facility] [address] [place] [id number], [facility] Hematocrit (Bld) [Volume fraction] 37.8 % Normal 36.0-45.0 [facility] Comment on above: Order Comment: No: D o not add to previous draw Performed By: #### 0 0071, 78044 #### [facility] [address] [place] [address], [facility] Hemoglobin (Bld) [Mass/Vol] 12.0 g/dL Normal 12.0-15.0 [facility] Comment on above: Order Comment: No: D o not add to previous draw Performed By: #### 0 0071, 88261 #### [facility] [address] [facility] [place] [address], [facility] IMMATURE GRANS 0.6 % Normal 0.0-1.0 [facility] Comment on above: Order Comment: No: D o not add to previous draw Performed By: #### 0 0071, 31480 #### [facility] [address] [facility] [place] [address], [facility] Lymphocytes (Bld) [#/Vol] 1.0 10*3/uL Low 1.2-4.0 [facility] Comment on above: Order Comment: No: D o not add to previous draw Performed By: #### 0 0071, 22615 #### [facility] [address] [place] [address], [facility] Lymphocytes/100 WBC (Bld) 11.3 % Low 20.0-45.0 [facility] Comment on above: Order Comment: No: D o not add to previous draw Performed By: #### 0 0071, 72347 #### [facility] [address] [place] [address], [facility] MCH (RBC) [Entitic mass] 29.0 pg Normal 27.0-33.0 [facility] Comment on above: Order Comment: No: D o not add to previous draw Performed By: #### 0 0071, 47347 #### [facility] [address] [place] [address], [facility] MCHC (RBC) [Mass/Vol] 31.7 g/dL Low 32.0-35.0 [facility] Comment on above: Order Comment: No: D o not add to previous draw Performed By: #### 0 0071, 81997 #### [facility] [address] [place] [address], [facility] MCV (RBC) [Entitic vol] 91.3 fL Normal 82.0-98.0 [facility] Comment on above: Order Comment: No: D o not add to previous draw Performed By: #### 0 0071, 80640 #### [facility] [address] [facility] [place] [address], [facility] Monocytes (Bld) [#/Vol] 0.9 10*3/uL Normal 0.1-1.0 [facility] Comment on above: Order Comment: No: D o not add to previous draw Performed By: #### 0 0071, 31999 #### [facility] [address] [place] [address], [facility] MONOS 10.3 % Normal 5.0-12.0 [facility] Comment on above: Order Comment: No: D o not add to previous draw Performed By: #### 0 0071, 34411 #### [facility] [address] [place] [address], [facility] Neutrophils/100 WBC (Bld) 74.6 % High 40.0-72.0 [facility] Comment on above: Order Comment: No: D o not add to previous draw Performed By: #### 0 0071, 68494 #### [facility] [address] [place] [address], [facility] Nucleated RBC/100 WBC (Bld) [Ratio] 0 % Normal 0-0 [facility] Comment on above: Order Comment: No: D o not add to previous draw Performed By: #### 0 0071, 23237 #### [facility] [address] [place] [address], [facility] PLAT CNT 229 10*3/uL Normal 150-[address] [facility] Comment on above: Order Comment: No: D o not add to previous draw Performed By: #### 0 0071, 18746 #### [facility] [address] [place] [address], [facility] RBC (Bld) [#/Vol] 4.14 10*6/uL Normal 3.80-5.00 [facility] Comment on above: Order Comment: No: D o not add to previous draw Performed By: #### 0 0071, 56076 #### [facility] [address] [facility] [place] [address], [facility] WBC (Bld) [#/Vol] 8.65 10*3/uL Normal 4.00-10.60 [facility] Comment on above: Order Comment: No: D o not add to previous draw Performed By: #### 0 0071, 94417 #### [facility] [address] [place] [address], [facility] MAGNESIUM BLOODon 07-02-2020 Magnesium [Mass/Vol] 1.8 mg/dL Low 1.9-2.7 [facility] Comment on above: Order Comment: No: D o not add to previous draw Performed By: #### 0 0071, 62187 #### [facility] [address] [place] [address], [facility] POC GLUCOSE LABon 07-02-2020 Glucose [Mass/Vol] 157 mg/dL High 70-100 [facility] Comment on above: Performed By: #### 8 5499 #### [address] *MRSA/MSSA CULTUREon 020 *MRSA/MSSA CULTURE Clinical Report: (D) Specimen: NASAL SWAB Collected: 07/01/2020 10:15 Status: Final Last Updated: 07/02/2020 10:18 ISO (Final) No Methicillin Sensitive Staphylococcus aureus Isolated (MSSA) ISO (Final) No Methicillin Resistant Staphylococcus aureus Isolated (MRSA) This result added by MIGUEL A on 07/02/2020 10:18. The previous result was: CULT RES (Final) No Methicillin Resistant Staphylococcus aureus Isolated (MRSA) ISO (Final) No previously released data found. Normal [facility] Comment on above: Performed By: #### 3 1302 #### [address] LUMBAR SPINE 2 OR 3 Son LUMBAR SPINE 2 OR 3 S [facility] Department of Radiology [address] [place] [id number] Patient Name: MONICA ACOSTA : 1960 Sex: F Age: Race: White Pt. Location: [id number] Patient Status: I Ordered Date: 07/01/2020 7:00:00 AM Completed Date: 07/01/2020 12:20 PM Requesting Provider: CHILANGO MARTINEZ Attending Provider: CHILANGO MARTINEZ Report Copy To: Signs & Symptoms: L1 VERTEBROPLASTY History: Comments: L1 VERTEBROPLASTY Exam: LUMBAR SPINE 2 OR 3 VWS LUMBAR SPINE 2 OR 3 VWS 07/01/2020 12:20 PM CLINICAL INDICATIONS: L1 VERTEBROPLASTY TECHNOLOGIST COMMENTS: Dr Martinez used 1 minute and 19 seconds of fluoro time for L1 Vertebroplasty Red and Black c-arms in 1130 out 1220 QUESTION FOR RADIOLOGIST: L1 VERTEBROPLASTY PROTOCOL: AP, Lateral and L5-S1 spot film was obtained. COMPARISON: 06/25/2020. IMPRESSION: Intraoperative fluoroscopic spot images demonstrates kyphoplasty at L1. Approved by:Bogdan Puga07/01/2020 3:41 PM. I, Richard Clarke,have reviewed the images and reports Electronically signed: Richard Clarke. Transcribed by: [email or web address], User Resident: BOGDAN SOTELO Electronically Signed by: RICHARD CLARKE @ 07/01/2020 08:54 PM I personally read this/these film(s) with this resident Normal [facility] Comment on above: Order Comment: No: D o not add to previous draw Operative Reporton 0 Operative Report MR#: [id number] [facility] Pt. Name: Monica Acosta Room #: [id number] Discharge Date: Birthdate: 1960 OPERATIVE REPORT DATE OF SURGERY: 07/01/2020 SURGEON: Chilango Martinez M.D. [employer]IATION [employer] CONSULTANT: Ant Jolley M.D. PREOPERATIVE DIAGNOSIS: L1 vertebral compression fracture secondary to osteoporosis (ICD-10 M80.08XA). ANESTHESIA: General endotracheal. POSITION: Prone position on the Chris table in reverse Trendelenburg position. OPERATION: 1. L1 vertebroplasty (85979). 2. Use of intraoperative fluoroscopy (90565). POSTOPERATIVE DIAGNOSIS: E2talmrpenm compression fracture secondary to osteoporosis (ICD-10 M80.08XA). ESTIMATED BLOOD LOSS: Minimal Minimal. FLUID GIVEN: 700mL.crystaloid and 500mL. albumin COMPLICATIONS: None. INDICATION: Mrs. Acosta is 59 year-old patient who seen with chief complaint of severe back pain started after a fall. X ray and MRI scan confirmed acute L1 vertebral compression fracture. Due to severity of her symptoms affecting her daily activity, the patient was keen on the above-mentioned surgical procedure. We explained to the risk and benefit of the above-mentioned surgical procedure, which include but not limited to intraoperative complications from anesthesia including , extravasation of the cement that may result into spinal cord or nerve root injury that may result in temporary or permanent paralysis, postoperative complications include but not limited to infection, DVT/PE, incomplete relief of symptoms, adjacent segment fracture. The patient fully understood the risk and benefit. She signed a consent for surgery as well as blood transfusion. The patient had been cleared by medicine team. DESCRIPTION OF PROCEDURE: The patient was taken to the operating room today and she was positively identified, received a smooth general endotracheal intubation and IV antibiotic for surgical prophylaxis. Thigh-high GABRIELA stockings as well as sequential compression devices used for DVT prophylaxis. The patient was positioned prone on a Chris table. The two image, intensifier, both AP and lateral was brought into position and marked level of pedicle of L1. The skin was then prepped and draped in the usual manner. A small puncture wound with 15 blade was then performed at approximately 3 cm of midline on the right side of the pedicle of L1. A blunt dissector and working cannula were then introduced through the soft tissue and the position was confirmed with fluoroscopy, both AP and lateral position and lateral views before advancing them through the pedicle of L1. Once we passed the posterior vertebral body wall a core harvest needle biopsy was used to harvest the tissue for pathology. Following that, the cannula was advanced in the vertebral body and after confirmation of good positioning both on the AP and lateral, the cement from [employer] system from [employer] was mixed. Cement was injected under live fluoroscopy, both AP and lateral. We have noticed good filling of the vertebral body; however, we noticed also some lateral extravasation and stoped injection. We injected a total of 5mL of cement. The cannula was then removed and the skin edges were approximated with Steri-Strips and sterile dressings were applied. The patient tolerated the procedure well. There was no immediate complication. The patient was taken to recovery room in a stable condition. POSTOPERATIVE PLAN: Mobilization as tolerated. Electronically Signed by: Chilango Martinez M.D. 07/01/2020 12:30 P Chilango Martinez M.D. Date Dict: 07/01/2020/12:25 P/Chilango Martinez M.D. Date Trans: 07/01/2020 12:25 P/ [id number] Normal [facility] POC GLUCOSE LABon 07-01-2020 Glucose [Mass/Vol] 142 mg/dL High 70-100 The [facility] Comment on above: Performed By: #### 8 5499 ####[facility] [facility].[address] Glucose [Mass/Vol] 156 mg/dL High 70-100 [facility] Comment on above: Performed By: #### 3 1792 #### [facility] [address] Glucose [Mass/Vol] 187 mg/dL High 70-100 [facility] Comment on above: Performed By: #### 3 1792 #### [facility] [address] *SARS-CoV-2 COVID-19on 06-30 [id number] Not Detected Normal Not Detected The [facility] Comment on above: Order Comment: The A ptima SARS-CoV-2 assay is a nucleic acid amplification test intended for the qualitative detection of RNA from SARS-CoV-2 isolated and purified from nasopharyngeal (CLEAN ROOM ASSEMBLER),oropharyngeal (OP), nasal swab, sputum, and bronchoalveolar lavage (BAL) specimens from patients with signs and symptoms of infection who are suspected of COVID-19. Results are for the identification of SARS-CoV-2 RNA. The SARS-CoV-2 RNA is generally detectable during the acute phase of infection. The Aptima SARS-CoV-2 Assay on the [employer] and [employer] system is intended for use by laboratory personnel specifically instructed and trained in the operation of the [employer] system. The Aptima SARS-CoV-2 assay is only for use under the Food and Drug Administration Emergency Use Authorization. Testing is limited to laboratories certified under the Clinical Laboratory Improvement Amendments of 1988 (CLIA), 42 U.S.C. ???263a, to perform high complexity tests. Not Detected: Not detected does not preclude SARS-CoV-2 infection and should not be used as the sole basis for patient management decisions. Not detected results must be combined with clinical observations, patient history, and epidemiological information. Performed By: #### 3 1792 #### [facility] [address] APTTon 06-30-2020 aPTT Coag (Bld) [Time] 22.4 s Low 25.0-35.0 [facility] Comment on above: Result Comment: ALL RESULTS MUST BE INTERPRETED WITH RESPECT TO BLOOD DRAWING ARTIFACT OR DILUTION ERROR OF ANTICOAGULANT AT THE TIME OF SAMPLING. THE APTT SHOULD NOT BE USED TO MONITOR UNFRACTIONATED HEPARIN THERAPY, THIS LABORATORY NO LONGER HAS AN ESTABLISHED THERAPEUTIC RANGE BASED ON THE APTT. IT IS RECOMMENDED THAT THE UFH - HEPARIN ASSAY (ANTI-XA ACTIVITY) BE USED FOR THIS PURPOSE. Performed By: #### 8 5499 #### [facility] [address] BASIC METABOLIC PANELon 10- Calcium [Mass/Vol] 9.5 mg/dL Normal 8.6-10.3 [facility] Comment on above: Performed By: #### 8 5499 #### [facility] [address] [place] [address], [facility] Chloride [Moles/Vol] 95 mmol/L Low 98-107 [facility] Comment on above: Performed By: #### 8 5499 #### [facility] [address] [place] [address], [facility] CO2 [Moles/Vol] 21 mmol/L Normal 21-31 The [facility] Comment on above: Performed By: #### 8 5499 #### [facility] [address] [place] [address], [place] Creatinine [Mass/Vol] 1.00 mg/dL Normal 0.60-1.20 [facility] Comment on above: Performed By: #### 8 5499 #### [facility] [address] [place] [address], [place] GFR/1.73 sq M predicted among blacks MDRD (S/P/Bld) [Vol rate/Area] mL/min/{1.73_m2} Normal >60 [facility] Comment on above: Performed By: #### 8 5499 #### [facility] [address] [place] [address], [place] GFR/1.73 sq M predicted among non-blacks MDRD (S/P/Bld) [Vol rate/Area] 56 ml/min/1.73sq m Abnormal >[address] [facility] Comment on above: Performed By: #### 8 5499 #### [facility] [address] [place] [address], [place] Glucose [Mass/Vol] 395 mg/dL High 70-100 [facility] Comment on above: Performed By: #### 8 5499 #### [facility] [address] [place] [address], [place] Potassium [Moles/Vol] 4.4 mmol/L Normal 3.5-5.1 [facility] Comment on above: Performed By: #### 8 5499 #### [facility] [address] [place] [address], [place] Sodium [Moles/Vol] 134 mmol/L Low 136-145 [facility] Comment on above: Performed By: #### 8 5499 #### [facility] [address] [place] [address], [place] Urea nitrogen [Mass/Vol] 24 mg/dL Normal 7-25 [facility] Comment on above: Performed By: #### 8 5499 #### [facility] [address] BNP (B-TYPE NATRIURETIC PEPT PADMAJA)on 06-30-2020 Natriuretic peptide B (Bld) [Mass/Vol] 27 pg/mL Normal 0-100 [facility] Comment on above: Order Comment: No: D o not add to previous draw Result Comment: Give n the appropriate clinical setting a BNP result of >100 pg/mL indicates congestive heart failure. Performed By: #### 0 0071, 96490 #### [facility] [address] CBC W/DIFFon 06-30-2020 ABS BASOPHILS 0.1 10*3/uL Normal 0.0-0.2 The [facility] Comment on above: Performed By: #### 8 5499 #### [facility] [address] ABS IMM GRANS 0.1 10*3/uL Normal 0.0-0.2 [facility] Comment on above: Performed By: #### 8 5499 #### [facility] [address] ABS NEUTROPHILS 10.3 10*3/uL High 1.6-7.6 [facility] Comment on above: Performed By: #### 8 5499 #### [facility] [address] Basophils/100 WBC (Bld) 0.7 % Normal 0.0-1.0 [facility] Comment on above: Performed By: #### 8 5499 #### [facility] [address] [place] [address], [facility] Eosinophils (Bld) [#/Vol] 0.2 10*3/uL Normal 0.0-0.5 [facility] Comment on above: Performed By: #### 8 5499 #### [facility] [address] [facility] [place] [place] [address], [facility] Eosinophils/100 WBC (Bld) 1.4 % Normal 0.0-6.0 [facility] Comment on above: Performed By: #### 8 5499 #### [facility] [address] [facility] [place] [address], [facility] Erythrocyte distribution width (RBC) [Ratio] 14.7 % Normal 11.5-15.0 [facility] Comment on above: Performed By: #### 8 5499 #### [facility] [address] [facility] [place] [address], [facility] Hematocrit (Bld) [Volume fraction] 47.7 % High 36.0-45.0 [facility] Comment on above: Performed By: #### 8 5499 #### [facility] [address] [facility]. [address] Hemoglobin (Bld) [Mass/Vol] 15.3 g/dL High 12.0-15.0 [facility] Comment on above: Performed By: #### 8 5499 #### [facility] [address] [place] [address], [facility] IMMATURE GRANS 0.6 % Normal 0.0-1.0 [facility] Comment on above: Performed By: #### 8 5499 #### [facility] [address] [facility] [place] [address], [facility] [facility] Lymphocytes (Bld) [#/Vol] 1.4 10*3/uL Normal 1.2-4.0 [facility] Comment on above: Performed By: #### 8 [id number] #### [facility] [address] [facility] [place] [address], [facility] Lymphocytes/100 WBC (Bld) 11.0 % Low 20.0-45.0 [facility] Comment on above: Performed By: #### 8 [id number] #### [facility] [address] [place] [address], [facility] MCH (RBC) [Entitic mass] 28.7 pg Normal 27.0-33.0 [facility] Comment on above: Performed By: #### 8 [id number] #### [facility] [address] [facility] [place] [id number], [facility] MCHC (RBC) [Mass/Vol] 32.1 g/dL Normal 32.0-35.0 [facility] Comment on above: Performed By: #### 8 [id number] #### [facility] [address] [facility] [place] [address], [facility] MCV (RBC) [Entitic vol] 89.3 fL Normal 82.0-98.0 [facility] Comment on above: Performed By: #### 8 [id number] #### [facility] [address] [facility] [place] [address], [facility] Monocytes (Bld) [#/Vol] 1.0 10*3/uL Normal 0.1-1.0 [facility] Comment on above: Performed By: #### 8 [id number] #### [facility] [address] [facility] [place] [address], [facility] MONOS 7.4 % Normal 5.0-12.0 [facility] Comment on above: Performed By: #### 8 [id number] #### [facility] [address] [facility] [place] [address], [facility] Neutrophils/100 WBC (Bld) 78.9 % High 40.0-72.0 [facility] Comment on above: Performed By: #### 8 [id number] #### [facility] [address] [facility] [place] [address], [facility] Nucleated RBC/100 WBC (Bld) [Ratio] 0 % Normal 0-0 [facility] Comment on above: Performed By: #### 8 [id number] #### [facility] [address] PLAT CNT 315 10*3/uL Normal 150-[address] [facility] Comment on above: Performed By: #### 8 [id number] #### [facility] [address] [place] [address], [facility] RBC (Bld) [#/Vol] 5.34 10*6/uL High 3.80-5.00 [facility] Comment on above: Performed By: #### 8 [id number] #### [facility] [address] [place] [address], [facility] WBC (Bld) [#/Vol] 13.03 10*3/uL High 4.00-10.60 [facility] Comment on above: Performed By: #### 8 [id number] #### [facility] [address] BRAIN WO CONTRASTon 06-30 CT BRAIN WO CONTRAST [facility] Department of Radiology [address] [place] [address] [phone] Patient Name: MONICA ACOSTA : 1960 Sex: F Age: Race: White Pt. Location: [facility] Patient Status: E Ordered Date: 06/30/2020 6:35:00 AM Completed Date: 06/30/2020 07:46 AM Requesting Provider: MEHREEN SANCHEZ Attending Provider: MEHREEN SANCHEZ Report Copy To: Signs & Symptoms: Head Injury History: See Comments Comments: Bleed Exam: CT BRAIN WO CONTRAST CT BRAIN WO CONTRAST 06/30/2020 7:46 AM SIGNS AND SYMPTOMS: Head Injury TECHNOLOGIST COMMENTS: S/p fall from standing hitting posterior head s/p LOC. C/o neck tenderness upon physical examination with SALDAÑA QUESTION FOR THE RADIOLOGIST: Bleed PROTOCOL: Axial CT images of the head were obtained without IV contrast. TECHNIQUE:Multi-detec tor CT axial slices of the brain were obtained without IV contrast. Helical,sagittal, coronal, and 3-D reconstructions were performed and viewed on a separate workstation. COMPARISON: None. FINDINGS: There is no shift of the midline structures, acute intracranial bleeding, mass effects, or evidence of acute ischemia. The ventricular system is normal in size. The brainstem and the cerebellum are unremarkable. The visualized intraorbital contents, and the infratemporal soft tissues show no acute abnormality. The osseous structures in the skull base and the calvarium show no abnormality. Vascular calcifications are seen in the vertebral arteries and intracranial portions of internal carotid arteries bilaterally. Minimal mucoperiosteal thickening in the left sphenoid and left maxillary sinus IMPRESSION: Normal noncontrasted CT brain. Vascular calcifications and chronic left sphenoid and maxillary sinus disease. All CT scans at this facility use dose modulation, iterative reconstruction, and/or weight based dosing when appropriate to reduce radiation dose to as low as reasonably achievable Electronically signed: Enio Miles. Transcribed by: [email or web address], User Resident: Electronically Signed by: ENIO MILES @ 06/30/2020 07:52 AM Normal [facility] Comment on above: Order Comment: Bleed CT CERVICAL SPINE WITHOUT CO NTRASTon 06-30-2020 CT CERVICAL SPINE WITHOUT CONTRAST [facility] Department of Radiology [address] [place] [phone] Patient Name: MONICA ACOSTA : 1960 Sex: F Age: Race: White Pt. Location: [facility] Patient Status: Krystle Ordered Date: 06/30/2020 6:35:00 AM Completed Date: 06/30/2020 07:46 AM Requesting Provider: MEHREEN SANCHEZ Attending Provider: MEHREEN SANCHEZ Report Copy To: Signs & Symptoms: Back Pain (specify level) History: See Comments Comments: Fractures Exam: CT CERVICAL SPINE WITHOUT CONTRAST CT CERVICAL SPINE WITHOUT CONTRAST 06/30/2020 7:46 AM CLINICAL INDICATIONS: Back Pain (specify level) TECHNOLOGIST COMMENTS: QUESTION FOR THE RADIOLOGIST: Fractures PROTOCOL: Volume acquisition with MIP, multiplanar reformats and 3D reconstructed images were generated on an independent workstation and reviewed to further define anatomy and possible pathology. TECHNIQUE: Multidetector CT axial slices of thecervical spine were obtained without IV contrast. Multiplanar reformats, MIP, volume rendered 3-D images were generated on a separate workstation and reviewed to further define anatomy and possible pathology. All CT scans at this facility use dose modulation, iterative reconstruction, and/or weight based dosing when appropriate to reduce radiation dose to as low as reasonably achievable COMPARISON: None. FINDINGS: Sagittal reconstruction revealed satisfactory alignment. There is anterior bony spurring seen from C5 to T1 level and disc space narrowing seen at C7-T1 level. There is facet joint space narrowing and mild sclerosis seen bilaterally. Findings suggest mild severe cervical spondylosis with no evidence of acute bony abnormality. Prevertebral soft tissue space is unremarkable. Coronal reconstruction revealed satisfactory alignment at C1-2 and atlantooccipital articulation. Axial images evaluated in lung windows did not reveal apical pneumothorax. Minimal apical paraseptal emphysematous changes. Soft tissues appear unremarkable with low-attenuation nodule seen in the right thyroid lobe and vascular calcification seen at the carotid bulbs. IMPRESSION: Mild cervical spondylosis with no evidence of acute bony abnormality or malalignment. Electronically signed: Enio Miles. Transcribed by: [email or web address], User Resident: Electronically Signed by: ENIO MILES @ 06/30/2020 07:54 AM Normal [facility] Comment on above: Order Comment: No: D o not add to previous draw CT LUMBAR SPINE WO CONTRASTo n 06-30-2020 CT LUMBAR SPINE WO CONTRAST [facility] Department of Radiology [address] [place] [phone] Patient Name: MONICA ACOSTA : 1960 Sex: F Age: Race: White Pt. Location: [facility] Patient Status: E Ordered Date: 06/30/2020 7:00:00 AM Completed Date: 06/30/2020 07:47 AM Requesting Provider: MEHREEN SANCHEZ Attending Provider: MEHREEN SANCHEZ Report Copy To: Signs & Symptoms: Fracture History: See Comments Comments: Fractures Exam: CT LUMBAR SPINE WO CONTRAST CT LUMBAR SPINE WO CONTRAST 06/30/2020 7:47 AM CLINICAL INDICATIONS: Fracture TECHNOLOGIST COMMENTS: QUESTION FOR THE RADIOLOGIST: Fractures PROTOCOL: Axial CT images of the spine were obtained without IV contrast. TECHNIQUE: Multidetector CT axial slices of thelumbar spine were obtained without IV contrast. Multiplanar reformats, MIP, volume rendered 3-D images were generated on a separate workstation and reviewed to further define anatomy and possible pathology. All CT scans at this facility use dose modulation, iterative reconstruction, and/or weight based dosing when appropriate to reduce radiation dose to as low as reasonably achievable COMPARISON: None. FINDINGS: Sagittal reconstruction of the lumbar spine revealed the presence of mild anterior bony spurring at multiple levels and tiny vacuum phenomenon seen anteriorly at L2-3. There is wedging and 10-20% loss of height anteriorly at L1 with transverse fracture line seen involving the superior endplate and small retropulsed fragment at the superior posterior corner of L1 vertebral body extending into the spinal canal for approximately 6 mm. No additional other fractures are seen. Vascular calcifications are seen in the abdominal aorta. Visualized part of the abdominal and pelvic viscera appeared grossly unremarkable. IMPRESSION: Acute L1 compression fracture with retropulsed 6 mm fragment at the superior posterior corner into the spinal canal with mild acquired canal stenosis. MRI examination may be helpful in further evaluation of any possibility of conus or lower cord injury. Small adjacent prevertebral soft tissue hematoma. Vascular calcifications and no evidence of other acute traumatic injury. Electronically signed: Enio Miles. Transcribed by: [email or web address], User Resident: Electronically Signed by: ENIO MILES @ 06/30/2020 07:59 AM Normal [facility] Comment on above: Order Comment: No: D o not add to previous draw CTA CHESTon 06-30-2020 CTA CHEST [facility] Department of Radiology [address] [place] [phone] Patient Name: MONICA ACOSTA : 1960 Sex: F Age: Race: White Pt. Location: [id number] Patient Status: I Ordered Date: 06/30/2020 3:25:00 PM Completed Date: 06/30/2020 08:04 PM Requesting Provider: NIKKI BEAL Attending Provider: ALEXANDER MORILLO Report Copy To: Signs & Symptoms: Chest Pain History: See Comments Comments: Pulmonary Embolism Exam: CTA CHEST CTA CHEST 06/30/2020 8:04 PM SIGNS AND SYMPTOMS: Chest Pain TECHNOLOGIST COMMENTS: shortness of breath QUESTION FOR RADIOLOGISTS: Pulmonary Embolism PROTOCOL: Axial CT angiography images were obtained with IV contrast. CONTRAST: Contrast: OMNIPAQUE 350 (LOCM), 100 milliliter, Intravenous TECHNIQUE: Multidetector CT angiography axial slices of the chest were obtained with IV contrast. Multiplanar reformats, MIP, and volume rendered 3-D images were generated on a separate workstation and reviewed to further define anatomy and possible pathology. COMPARISON: None.. FINDINGS : No acute pulmonary emboli. No thoracic aortic aneurysm. No enlarged mediastinal or axillary lymph nodes. Moderate posterior lower lobe no lung nodules. No pleural or pericardial effusions. No osseous lesions. Bibasilar atelectasis. Mild hiatal hernia. Sternotomy. IMPRESSION: No acute pulmonary emboli. Moderate bibasilar lower lobe atelectasis. Electronically signed: Richard Clarke. Transcribed by: [email or web address], User Resident: Electronically Signed by: RICHARD CLARKE @ 06/30/2020 08:13 PM Normal [facility] Comment on above: Order Comment: No: D o not add to previous draw D DIMER TESTon 06-30-2020 D-DIMER TEST 1.78 mcg/mL FEU High 0.27-0.49 [facility] Comment on above: Order Comment: No: D o not add to previous draw Result Comment: D-Di pema values of less than 0.50 ug/ml (FEU) are considered to be a negative predictor of thrombosis. However, the D-Dimer result should be used in conjunction with pretest probability and should not be used alone to diagnose a thrombotic event. Performed By: #### 0 0071, [id number] #### [place] [address] HEMOGLOBIN A1Con 06-30-2020 HbA1c (Bld) [Mass fraction] 200 mmol/L Normal [facility] Comment on above: Order Comment: No: D o not add to previous draw Performed By: #### 0 0071, [id number] #### [facility] [address] [place] [address], [facility] HbA1c (Bld) [Mass fraction] 8.6 % High 4.0-6.0 [facility] Comment on above: Order Comment: No: D o not add to previous draw Performed By: #### 0 0071, [id number] #### [facility] [address] [facility] [place] [address], [facility] LACTATE BLOODon 06-30-2020 Lactate [Moles/Vol] 1.5 mmol/L Normal 0.5-2.2 [facility] Comment on above: Order Comment: No: D o not add to previous draw Performed By: #### 0 0071, [id number] #### [facility] [address] [facility] [place] [address], [facility] MAGNESIUM BLOODon 06-30-2020 Magnesium [Mass/Vol] 1.9 mg/dL Normal 1.9-2.7 [facility] Comment on above: Order Comment: No: D o not add to previous draw Performed By: #### 0 0071, [id number] #### [facility] [address] [facility] [place] [address], [facility] MRI LUMBAR SPINE W WO CONTRA STon 06-30-2020 MRI LUMBAR SPINE W WO CONTRAST [facility] Department of Radiology [address] [place] [phone] Patient Name: MONICA ACOSTA : 1960 Sex: F Age: Race: White Pt. Location: [facility] Patient Status: I Ordered Date: 06/30/2020 7:50:00 AM Completed Date: 06/30/2020 10:59 AM Requesting Provider: VALDEMAR HOPKINS Attending Provider: MEHREEN SANCHEZ Report Copy To: Signs & Symptoms: Trauma History: See Comments Comments: Fracture Exam: MRI LUMBAR SPINE W WO CONTRAST MRI LUMBAR SPINE W WO CONTRAST 06/30/2020 10:59 AM CLINICAL INDICATIONS: Trauma. TECHNOLOGIST COMMENTS: s/p fall yesterday fx. QUESTION FOR THE RADIOLOGIST: Fracture. PROTOCOL: The following pulse sequences were utilized when imaging the lumbar spine: sagittal T2, sagittal T1, sagittal STIR, axial T2, and axial T1. Post contrast images obtained in sagittal T1 and axial T1. CONTRAST: Contrast: DOTAREM .5mmol, 20 milliliter, Intravenous COMPARISON: CT obtained earlier today. FINDINGS: Acute L1 fracture with 10% height loss and minimal retropulsion of fracture fragments. No epidural hematoma. No compression of the cauda equina or signal abnormality noted in the conus which appears normal. No malalignment. No additional fractures. Mild paraspinal inflammatory changes likely related to recent injury. Enhancement in the L1 vertebral body and paraspinal soft tissues is likely reactive secondary to recent fracture. No additional enhancing lesions noted. Minimal protrusions of the intervertebral discs and facet degenerative changes at multiple levels with no canal stenosis or significant neural foraminal narrowing. IMPRESSION: 1. Acute L1 wedge compression fracture with 10% height loss. Minimal retropulsion of fracture fragments noted without evidence of epidural hematoma or canal stenosis. Visualized portions of the cauda equina and conus medullaris are normal. 2. Mild multilevel degenerative changes. Electronically signed: Dom Carbajal. Transcribed by: [email or web address], User Resident: Electronically Signed by: DOM CARBAJAL @ 06/30/2020 11:09 AM Normal [facility] Comment on above: Order Comment: No: D o not add to previous draw POC GLUCOSE EDon 06-30-2020 Glucose [Mass/Vol] 388 mg/dL High 70-100 [facility] Comment on above: Performed By: #### 8 [id number] #### [facility] [address] [place] [address], [place] POC GLUCOSE LABon 06-30-2020 Glucose [Mass/Vol] 430 mg/dL High 70-100 [facility] Comment on above: Performed By: #### 8 [id number] ####[facility] [place] [address], [place] Glucose [Mass/Vol] 308 mg/dL High 70-100 [facility] Comment on above: Performed By: #### 3 [id number] #### [facility] [address] [place] [address], [place] Glucose [Mass/Vol] 348 mg/dL High 70-100 [facility] Comment on above: Performed By: #### 8 [id number] #### [facility] [address] [place] [address], [place] PROCALCITONINon 06-30-2020 PROCALCITONIN 0.11 ng/mL High 0.00-0.10 [facility] Comment on above: Order Comment: No: D o not add to previous draw Result Comment: Susp ected Lower Respiratory Tract Infection: 0.1-0.25ng/mL- Low likelihood for bacterial infection;Antibiotics discouraged.* >0.25ng/mL- Increased likelihood bacterial infection;Antibiotics encouraged. Suspected Sepsis: Strongly consider initiating antibiotics in all unstable patients. 0.1-0.5ng/mL- Low likelihood for sepsis; Antibiotics discouraged.* >0.5ng/mL- Increased likelihood sepsis; Antibiotics encouraged. >2.0ng/mL- High risk of sepsis/septic shock; Antibiotics strongly encouraged. *Recommend retesting PCT within 6-12hours if clinically indicated and initial PCT<0.5ng/mL Performed By: #### 0 0071, [id number] #### [facility] [address] [facility]. [address] PROTHROMBIN TIMEon 0 INR Coag (PPP) [Relative time] 0.89 {INR} Low 0.91-1.16 [facility] Comment on above: Result Comment: ACCC P RECOMMENDED INR FOR WARFARIN THERAPY -------- ------- CONDITION INR PROPHYLAXIS OF VENOUS THROMBOSIS 2-3 (HIGH-RISK SURGERY) TREATMENT OF VENOUS THROMBOSIS 2-3 TREATMENT OF PULMONARY EMBOLISM 2-3 PREVENTION OF SYSTEMIC EMBOLISM: 2-3 ACUTE MYOCARDIAL INFARCTION TISSUE HEART VALVES VALVULAR HEART DISEASE ATRIAL FIBRILLATION RECURRENT SYSTEMIC EMBOLISM MECHANICAL HEART VALVE 2.5-3.5 FROM: ORAL ANTICOAGULANTS. MECHANISM OF ACTION, CLINICAL EFFECTIVENESS, AND OPTIMAL THERAPEUTIC RANGE. CHEST 1995;108:231S-246S. Performed By: #### 8 [id number] #### [facility] [address] [facility] [place] [address], [facility] PT Coag (PPP) [Time] 12.0 s Low 12.3-14.8 [facility] Comment on above: Result Comment: ALL RESULTS MUST BE INTERPRETED WITH RESPECT TO BLOOD DRAWING ARTIFACT OR DILUTION ERROR OF ANTICOAGULANT AT THE TIME OF SAMPLING. Performed By: #### 8 [id number] #### [facility] [address] [facility] [place] [place] [address], [facility] TPO ANTIBODY [id number] TPO ANTIBODY 0.8 IU/mL Normal 0.0-9.0 [facility] Comment on above: Result Comment: Perf ormed By: [address] [place] [address] Orchestra Musician: Emilia Arrieta MD TROPONIN-Ion 06-30-2020 Troponin I.cardiac [Mass/Vol] 0.01 ng/mL Normal 0.00-0.04 [facility] Comment on above: Order Comment: No: D o not add to previous draw Result Comment: REFE RENCE RANGES: 0.00 - 0.04 ng/ml NORMAL 0.05 - 0.50 ng/ml INDETERMINATE > 0.50 ng/ml CONSISTENT WITH AN M.I. Performed By: #### 0 0071, [id number] #### [facility] [address] [place] [address], [facility] Performed By: #### 8 [id number] #### [facility] [address] [place] [address], [facility] TYPE AND SCREENon 06-30-2020 ABO INTERPRETATION A Normal [facility] Comment on above: Performed By: #### 8 [id number] #### [facility] [address] [facility] [place] [address], [facility] RH INTERPRETATION Positive Normal [facility] Comment on above: Performed By: #### 8 [id number] #### [facility] [address] [facility] [place] [address], [facility] LUMBAR SPINE 2 OR 3 VWSon LUMBAR SPINE 2 OR 3 VWS [facility] Department of Radiology [address] [place] [phone] Patient Name: MONICA ACOSTA : 1960 Sex: F Age: Race: White Pt. Location: Patient Status: D Ordered Date: 06/25/2020 3:00:00 PM Completed Date: 06/25/2020 03:05 PM Requesting Provider: CHILANGO MARTINEZ Attending Provider: CHILANGO MARTINEZ Report Copy To: Signs & Symptoms: S32.009A Unsp fracture of unsp lumbar vertebra, init for clos fx I10 History: Comments: Views (X-RAY, LUMBAR SPINE): AP, Lateral, L5-S1 Spot Exam: LUMBAR SPINE 2 OR 3 VWS LUMBAR SPINE 2 OR 3 VWS 06/25/2020 3:05 PM CLINICAL INDICATIONS: S32.009A Unsp fracture of unsp lumbar vertebra, init for clos fx I10 TECHNOLOGIST COMMENTS: low back pain patient states L1 fx - 1 week ago QUESTION FOR RADIOLOGIST: Views (X-RAY, LUMBAR SPINE): AP, Lateral, L5-S1 Spot PROTOCOL: AP, Lateral and L5-S1 spot film was obtained. COMPARISON: None. FINDINGS: There is an age-indeterminate compression deformity at L1 with 50% body height loss. The remaining vertebral body heights are maintained. There is 5 lumbar type vertebral bodies. There is dextroconvex curvature. Multilevel disc space narrowing, anterior endplate osteophytosis and hypertrophic facet arthrosis. Abdominal aortic calcifications noted. IMPRESSION: There is an age-indeterminate compression deformity at L1 with 50% vertebral body height loss. MRA examination of the lumbar spine may be considered for differentiation of the acute compression fracture versus chronic change. Approved by:Bogdan Puga06/26/2020 9:13 AM. I, Jamie Elizondo,have reviewed the images and reports Electronically signed: Jamie Elizondo. Transcribed by: [email or web address], User Resident: BOGDAN SOTELO Electronically Signed by: JAMIE ELIZONDO @ 06/26/2020 11:06 AM I personally read this/these film(s) with this resident Normal [facility] Comment on above: Order Comment: No: D o not add to previous draw Vital Signs Date Time Vital Sign Value Performing Clinician Facility 12-05-2023 12:52-0400 Body height 170.2 cm Demetra DUMONTPARTY PL[employer] SALES UNIT ADVISOR Work Phone: [facility] 12-05-2023 12:52-0400 Body mass index (BMI) [Ratio] 28.16 kg/m2 Demetra Porter APRN-PARTY PL[employer] SALES UNIT ADVISOR Work Phone: [facility] 12-05-2023 12:52-0400 Body temperature 97.59 [degF] Demetra Porter APRN-PARTY PLAN SALES UNIT ADVISOR Work Phone: [facility] 12-05-2023 12:52-0400 Body weight 81.56 kg Demetra Porter APRN-[employer] SALES UNIT ADVISOR Work Phone: [facility] 12-05-2023 12:52-0400 Diastolic blood pressure 58 mm[Hg] Demetra Porter APRN-PARTY PL[employer] SALES UNIT ADVISOR Work Phone: [facility] 12-05-2023 12:52-0400 Heart rate 84 /min Demetra Porter APRN-[employer] SALES UNIT ADVISOR Work Phone: [facility] 12-05-2023 12:52-0400 Respiratory rate 18 /min Demetra Porter APRN-[employer] PL[employer] SALES UNIT ADVISOR Work Phone: [facility] 12-05-2023 12:52-0400 SaO2% (BldA) [Mass fraction] 98 % Demetra Porter APRN-[employer] PL[employer] SALES UNIT ADVISOR Work Phone: [facility] [employer] [facility] 12-05-2023 12:52-0400 Systolic blood pressure 96 mm[Hg] Demetra Porter ENVIRONMENTAL PROTECTION OFFICER-PARTY PLAN SALES UNIT ADVISOR Work Phone: [employer] [facility] 07-27-2021 12:15-0500 Body height 170.18 cm Veronica Ginty Other [facility] Other 07-27-2021 12:15-0500 Body mass index (BMI) [Ratio] 27.88 kg/m2 Veronica Ginty Other [facility] Other 07-27-2021 12:15-0500 Body temperature 96 [degF] Veronica Ginty Other [facility] Other 07-27-2021 12:15-0500 Body weight 80.74 kg Veronica Ginty Other [facility] Other 07-27-2021 12:15-0500 SaO2% (BldA) [Mass fraction] 96 % Veronica Ginty Other [facility] Other Encounters Encounter Date Encounter Type Care Provider Facility Start: 04-13-2024 End: 04-13-2024 [facility] Start: 04-13-2024 End: 04-13-2024 ambulatory [facility] Start: 03-27-2024 End: 03-27-2024 ambulatory [facility] Start: 03-27-2024 End: 03-27-2024 ambulatory [facility] Start: 03-26-2024 End: 03-26-2024 [facility] Start: 03-26-[address] [facility] Start: 02-09-2024 End: 02-09-2024 [facility]: 12-05-2023 End: 12-05[facility]2023 [facility] Start: 12-05-2023 End: 12-05-2023 Office outpatient visit 25 minutes Demetra Porter ENVIRONMENTAL PROTECTION OFFICER-PARTY PLAN SALES UNIT ADVISOR Work Phone: [facility] Internal Medicine - Family Medicine Comment on above: Rheumatoid arthritis involving multiple sites, unspecified whether rheumatoid factor present ([facility]) (Primary Dx); Status post partial amputation of left foot ([facility]); Diabetic polyneuropathy associated with type 2 diabetes mellitus ([facility]); Severe depression ([facility]); PAD (peripheral artery disease) ([facility]); Compression fracture of L1 vertebra with routine healing, subsequent encounter; Mixed hyperlipidemia Start: 12-05-2023 End: 12-05-2023 ambulatory RICH [facility] Start: 11-29-2023 Orders Only Demetra Porter ENVIRONMENTAL PROTECTION OFFICER-PARTY PLAN SALES UNIT ADVISOR Work Phone: [facility] Start: 11-15-2023 Orders Only Demetra Porter ENVIRONMENTAL PROTECTION OFFICER-PARTY PLAN SALES UNIT ADVISOR Work Phone: [facility] Internal Medicine - Family Medicine Start: 11-14-2023 Refill Zen Cornejolo ng DO Work Phone: [facility] - Medical Oncology Comment on above: Compression fracture of L1 vertebra with routine healing, subsequent encounter Start: 10-31-2023 Refill Zen Kemar Cornejolo ng DO Work Phone: [facility] Medical [facility]cology Comment on above: Compression fracture of L1 vertebra with routine healing, subsequent encounter Start: 10-16-2023 Refill Zen Kemar Cornejolo ng DO Work Phone: [facility] - Medical Oncology Comment on above: Compression fracture of L1 vertebra with routine healing, subsequent encounter Start: 10-04-2023 Refill Zen Kemar Cornejolo ng DO Work Phone: [facility] Comment on above: Compression fracture of L1 vertebra with routine healing, subsequent encounter Start: 09-12-2023 Refill Zen burns DO Work Phone: Yojana C[facility] - Medical Oncology Comment on above: Compression fracture of L1 vertebra with routine healing, subsequent encounter Start: 08-02-2023 End: 08-02-2023 ambulatory RICHARD Farnsworth FARIDA Not Available Start: 10-17-2022 End: 10-17-[address] ZEN FLORES Facility:[facility]1 Start: 08-17-2022 ambulatory FARIBA CARRERA Facilit y:H1 Start: 08-04-2022 End: 08-05-[address] ZEN FLORES Facility:[facility]1 Start: 06-15-2022 End: 06-16-2022 ambulatory FARIBA CARRERA Facility:H1 Start: 05-31-2022 Encounter for preprocedural cardiovascular examination [facility] Jero [facility] Start: 05-31-2022 Encounter for preprocedural laboratory examination [facility] Start: 05-31-2022 End: 06-03-[address] ZEN FLORES Facility:[facility]1 Start: 05-27-2022 End: 05-28-2022 ambulatory RADHA BRANNON Facility:[facility]1 Start: 05-27-2022 End: 05-28-2022 Encounter for preprocedural cardiovascular examination RADHA BRANNON Facility:H1 Start: 05-19-2022 End: 05-19-[address] ZEN FLORES Facility:H1 Start: 05-18-2022 End: 05-19-2022 ambulatory RADHA BRANNON Facility:H1 Start: 05-13-2022 End: 05-14-2022 ambulatory RADHA BRANNON Facility:H1 Start: 05-07-2022 End: 05-08-2022 ambulatory RADHA BRANNON Facility:H1 Start: 04-30-2022 End: 04-30-[address] ZEN FLORES Facility:[facility]1 Start: 04-16-2022 End: 04-17-2022 ambulatory RADHA BRANNON Facility:H1 Start: 04-09-2022 End: 04-10-2022 ambulatory RADHA BRANNON Facility:H1 Start: 04-01-2022 End: 04-02-2022 ambulatory RADHA BRANNON Facility:H1 Start: 03-25-2022 End: 03-26-2022 ambulatory RADHA FELIXCHRISTINA Facility:H1 Start: 03-18-2022 End: 03-19-2022 ambulatory RADAH BRANNON Facility:H1 Start: 03-14-2022 Encounter for preprocedural laboratory examination RADHA BRANNON [facility] Start: 03-13-2022 End: 03-15-2022 Evaluation and management of inpatient DR BACILIO HURT Facility:H1 Start: 03-11-2022 End: 03-12-[address] ZEN FLORES Facility:H1 Start: 03-06-2022 End: 03-07-2022 ambulatory RADHA BRANNON Facility:H1 Start: 03-06-2022 End: 03-07-2022 Encounter for preprocedural laboratory examination RADHA BRANNON Facility:H1 Start: 03-01-2022 End: 03-02-2022 ambulatory RADHA BRANNON Facility:H1 Start: 02-18-2022 End: 02-19-[address] BELLA TAPIA Facility:H1 Start: 02-16-2022 End: 02-17-2022 ambulatory RADHA BRANNON Facility:H1 Start: 01-26-2022 End: 01-27-2022 ambulatory RADHA BRANNON Facility:H1 Start: 01-22-2022 End: 01-23-2022 ambulatory RADHA BRANNON Facility:H1 Start: 12-30-2021 End: 12-31-2021 ambulatory RADHA BRANNON Facility:H1 Start: 11-03-2021 End: 11-03-[address] ZEN FLORES Facility:[facility]1 Start: 10-27-2021 End: 10-28-[address] DEMETRA PORTER Facility:H1 Start: 07-27-2021 End: 07-27-2021 ambulatory Veronica Mcneill Other [facility] Other Start: 07-27-2021 Office outpatient vi sit 15 minutes Veronica Mcneill [facility] Start: 07-17-2020 End: 08-01-2020 Patient encounter procedure REFERRED SELF Facility:[facility] Start: 06-30-2020 End: 07-14-2020 Evaluation and management of inpatient REFERRED SELF Facility:[facility] Procedures Date Procedure Procedure Detail Performing Clinician Start: 02-09-2024 Follow-up visit Follow-up ZEN FLORES Start: 12-05-2023 Adult depression screening assessment Demetra Porter ENVIRONMENTAL PROTECTION OFFICER-PARTY PLAN SALES UNIT ADVISOR Work Phone: Start: 07-12-2023 Adult depression screening assessment Zen Flores DO Work Phone: Start: 06-30-2023 Diabetic retinal eye exam Zen Flores DO Work Phone: Start: 05-31-2022 Excision of Left Geovanny t Muscle, Open Approach RADHA BRANNON Start: 05-31-2022 Excision of Left Geovanny t Subcutaneous Tissue and Fascia, Open Approach RADHA BRANNON Start: 05-31-2022 Resection of Right Metatarsal, Open Approach RADHA BRANNON Start: 05-21-2022 History of cholecystectomy History of cholecystectomy Zen Flores DO Work Phone: Start: 05-21-2022 History of coronary artery bypass grafting History of coronary artery bypass surgery Zen Flores DO Work Phone: Start: 05-21-2022 History of placement of stent for coronary artery disease History of coronary artery stent placement Zen Flores DO Work Phone: Start: 05-05-2022 Microscopic examinat ion of blood, culture RADHA BRANNON Comment on above: Performed By: #### B [id number] ####[facility] [address] [place], [place] [address]KeKasia Clement Start: 03-11-2022 Detachment at Left F oot, Partial 4th Ray, Open Approach RADHA BRANNON Start: 03-11-2022 Division of Left Geovanny t Subcutaneous Tissue and Fascia, Percutaneous Approach RADHA BRANNON Start: 03-11-2022 Division of Left Low er Leg Tendon, Open Approach RADHA BRANNON Start: 03-11-2022 EXC LT METATRSL [facility] BNE 1ST TOE OP RADAH BRANNON Start: 03-11-2022 Detachment at Left F oot, Partial 4th Ray, Open Approach RADHA BRANNON Start: 03-11-2022 Division of Left Low er Leg Tendon, Open Approach RADHA BRANNON Start: 03-11-2022 EXC LT METATRSL [facility] BNE 1ST TOE OP RADHA BRANNON Start: 03-11-2022 Excision of Left Geovanny t Subcutaneous Tissue and Fascia, Open Approach RADHA BRANNON Start: 07-01-2020 SUPPLEMENT LUMBAR VERTEBRA WITH SYNTH SUB, PERC APPROACH CHILANGO MARTINEZ Start: 06-30-2020 Antibody screen REFERRE D SELF Comment on above: Performed By: #### [id number] #### [facility] [address] Plan of Treatment Date Care Activity Detail Author Start: 09-17-2029 DTaP,Tdap and Td Vaccines (2 - Td or Tdap) DTaP,Tdap and Td Vaccines (2 - Td or Tdap) [facility] Start: 12-04-2024 Adult BMI Screening Adult BMI Screen ing [facility] Start: 12-04-2024 Depression Screening Depression Scre ening [facility] Start: 12-04-2024 Tobacco Screening Tobacco Screening [facility] Start: 07-12-2024 Adult BMI Screening Adult BMI Screen ing [facility] Start: 07-12-2024 Depression Screening Depression Scre ening [facility] Start: 07-12-2024 Tobacco Screening Tobacco Screening [facility] Start: 06-30-2024 Glaucoma screening Diabetic Op hthalmology Exam [facility] Start: 05-06-2024 Influenza vaccination Influenza Vacc ine [facility] Start: 11-20-2023 Screening for malign ant neoplasm of breast Mammogram [facility] Comment on above: Postponed from 11/19 (Patient Refused) Start: 11-20-2023 Screening for malign ant neoplasm of colon Colonoscopy [facility] Comment on above: Postponed from 11/19 (Patient Refused) Start: 11-10-2023 End: 11-10-2023 Patient encounter procedure 11/10/2023 1:50 PM EST [facility] [address] [place] [id number] Zen Flores, DO [address] [place] [address] [facility] Internal Medicine - Family Medicine Start: 09-13-2023 Diabetic foot examination Diabetic Foot Exam [facility] Start: 11-19-2022 Screening for malign ant neoplasm of breast Mammogram [facility] Start: 11-19-2022 Screening for malign ant neoplasm of colon Colonoscopy [facility] Start: 12-20-2009 Administration of varicella zoster vaccine Zoster (Shingles) Vaccine (1 of 2) [facility] Start: 12-20-1977 Adult BMI Follow Up Plan Adult BMI Follow Up Plan [facility] Immunizations Immunization Date Immunization Notes Care Provider Fa cility 07-12-2023 influenza, injectabl e, quadrivalent, preservative free Zen Furlong DO Work Phone: [facility] 07-12-2023 influenza virus vacc ine, unspecified formulation Demetra Porter [employer]YLA-PARTY PLAN SALES UNIT ADVISOR Work Phone: [facility] 08-05-2022 influenza, injectabl e, quadrivalent, preservative free Zen Furlong DO Work Phone: [facility] 05-21-2021 influenza, injectabl e, quadrivalent, preservative free Zen Furlong DO Work Phone: [facility] 11-06-2020 COVID-19, mRNA, LNP- S, PF, 30mcg/0.3mL Dose Zen Furlong DO Work Phone: [facility] 11-03-2020 SARS-COV-2 (COVID-19 ) Vaccine, Unspecified Zen Furlong DO Work Phone: [facility] 06-11-2020 pneumococcal conjuga te vaccine, 13 valent Zen Furlong DO Work Phone: [facility] Work Phone: 06-05-2020 influenza virus vacc ine, unspecified formulation Zen Furlong DO Work Phone: [facility] 06-05-2020 pneumococcal vaccine , unspecified formulation Zenemanuel Cornejolong DO Work Phone: [facility] 05-20-2020 influenza, injectabl e, quadrivalent, preservative free Zenemanuel Cornejolong DO Work Phone: [facility] 05-20-2020 pneumococcal polysaccharide vaccine, 23 valent Zen Bordenng DO Work Phone: [facility] 09-17-2019 tetanus toxoid, redu timmy diphtheria toxoid, and acellular pertussis vaccine, adsorbed Zen Flores DO Work Phone: [facility] 06-08-2019 influenza, injectabl e, quadrivalent, preservative free Zenemanuel Bordenng DO Work Phone: [facility] 11-28-2012 tetanus toxoid, unspecified formulation Zen Bordenng DO Work Phone: [facility] Payers Date Payer Category [place] [id number] 2022-Present [phone] [address] [place] [address] [id number] 2022 Medicaid [id number] 2021 Medicare AETNA MEDICARE A ETNA MEDICARE PLAN (HMO) [id number] 2021-Present [phone] [address] [place] [address] [id number] 1959 Unknown [id number] 2.16.840.1.659805.3.579.2.6 47 1959 Unknown [id number] 2.16.840.1.034957.3.579.2.6 47 1959 Unknown [id number] 2.16.840.1.182142.3.579.2.5 93 1959 Unknown [id number] 2.16.840.1.710494.3.579.2.5 93 1959 Unknown [id number] 2.16.840.1.007138.3.579.2.5 93 1959 Unknown [id number] 2.16.840.1.607453.3.579.2.5 93 1959 Unknown [id number] 2.16.840.1.899072.3.579.2.5 93 1959 Unknown [id number] 2.16.840.1.491920.3.579.2.5 93 1959 Unknown [id number] 2.16.840.1.128964.3.579.2.5 93 1959 Unknown [id number] 2.16.840.1.737683.3.579.2.5 93 1959 Unknown [id number] 2.16.840.1.467269.3.579.2.5 93 1959 Unknown [id number] 2.16.840.1.490513.3.579.2.5 93 1959 Unknown [id number] 2.16.840.1.039388.3.579.2.5 93 1959 Unknown [id number] 2.16.840.1.348673.3.579.2.5 93 1959 Unknown [id number] 2.16.840.1.308302.3.579.2.5 93 1959 Unknown [id number] 2.16.840.1.736170.3.579.2.5 93 1959 Unknown [id number] 2.16.840.1.158727.3.579.2.5 93 1959 Unknown [id number] 2.16.840.1.423416.3.579.2.5 93 1959 Unknown [id number] 2.16.840.1.998593.3.579.2.5 93 1959 Unknown [id number] 2.16.840.1.586468.3.579.2.5 93 1959 Unknown [id number] 2.16.840.1.648841.3.579.2.5 93 1959 Unknown [id number] 2.16.840.1.124789.3.579.2.5 93 1959 Unknown [id number] 2.16.840.1.262860.3.579.2.5 93 1959 Unknown [id number] 2.16.840.1.944889.3.579.2.5 93 1959 Unknown [id number] 2.16.840.1.597223.3.579.2.5 93 1959 Unknown [id number] 2.16.840.1.152991.3.579.2.5 93 1959 Unknown [id number] 2.16.840.1.938954.3.579.2.5 93 1959 Unknown [id number] 2.16.840.1.690390.3.579.2.5 93 1959 Unknown [id number] 2.16.840.1.347185.3.579.2.5 93 1959 Unknown [id number] 2.16.840.1.791212.3.579.2.5 93 1959 Unknown [id number] 2.16.840.1.512244.3.579.2.1 259 1959 Unknown [id number] 2.16.840.1.557714.3.579.2.1 286 1959 Unknown [id number] 2.16.840.1.937668.3.579.2.1 286 1959 Unknown [id number] 2.16.840.1.661788.3.579.2.1 286 1959 Unknown [id number] 2..840.1.738624.3.579.2.1 286 1959 Unknown [id number] 2.840.1.867152.3.579.2.1 286 1959 Unknown [id number] 2.16840.1.671654.3.579.2.1 286 1959 Unknown [id number] 2.840.1.246908.3.579.2.1 286 1959 Unknown [id number] 2.16840.1.641387.3.579.2.1 286 1959 Unknown [id number] 2.840.1.556924.3.579.2.1 286 1959 Medicare [id number] 1960 Self-pay Private Health Insurance [id number] [id number] Unknown [id number] Social History Date Type Detail Facility Start: 11-19-2022 End: 12-05-2023 Sex Assigned At [facility] Other Start: 07-27-2022 Tobacco smoking status NHIS Ex-smoker [facility] Start: 09-05-1975 End: 06-06-1997 History of tobacco use Current smoker [facility] Start: 09-05-1975 End: 06-06-1997 History of tobacco use Cigarette Smoker [facility] Start: 07-27-2022 End: 11-19-2022 Cigarettes smoked current (pack per day) - Reported 2.5 [facility] Start: 07-27-2022 Tobacco use and exposure Smokeless tobacco non-user [facility] Start: 07-12-2023 End: 12-05-2023 Alcohol intake Ex-drinker (finding) [facility] Do you belong to any clubs or organizations such as sabianism groups, unions, fraternal or athletic groups, or school groups? Yes [facility] Are you now , , , , never or living with a partner? [facility] How often to you hav e a drink containing alcohol? Never [facility] Average Number of Drinks Not on file [facility] How hard is it for y ou to pay for the very basics like food, housing, medical care, and heating Not very hard [facility] Do you feel stress - tense, restless, nervous, or anxious, or unable to sleep at night because your mind is troubled all the time - these days [OSQ] To some extent [facility] Start: 1960 Sex Assigned At Female [facility] Start: 09-15-2022 Gender identity Identifies as female gender (finding) [facility] Start: 09-15-2022 Sexual orientation Heterosexual (finding) [facility] How hard is it for y ou to pay for the very basics like food, housing, medical care, and heating Somewhat hard [facility] Clinical Notes 07-27-2021 to 12-05-2023 Demetra Porter, ENVIRONMENTAL [facility]CTION [facility] - 12/05/2023 1:00 PM EDTMmichelle Porter, ENVIRONMENTAL PROTECTION [facility] - 11/29/2023 7:44 AM EDTMmichelle Porter, ENVIRONMENTAL PROTECTION [facility] - 11/15/2023 7:58 AM EDT Note Date & Type Note Facility 12-05-2023 History of Presen t illness Narrative .Subjective Patient ID: Monica Acosta is a 62 y.o. female. She has been taking the hydrocodone for rheumatoid arthritis more so than her low back pain although her low back still gives her pain Her rheumatoid arthritis makes her ache in multiple joints She does not see a stereo equipment repairer for this She has been taking it twice daily and this has been working pretty well for her so she can function better and do her activities of daily living She has been without it now for the past several days so her level of pain has been much increased Her blood sugars have been better lately - she does see Dr Palomino for this, she had to cancel her last apt as she had the flu recently She is now on a pump and her blood sugars have improved, her blood sugar this am was 111 She plans to call and get another apt soon She is taking all her other medications Her depression she describes as up and down but stable for her No new symptoms of neuropathy or claudication The following portions of the patient's history were reviewed and updated as appropriate: allergies, current medications, past family history, past medical history, past social history, past surgical history, problem list, and medication reconciliation was completed including current medication and post discharge medication. Review of Systems Constitutional: Positive for fatigue. HENT: Negative. Eyes: Negative. Respiratory: Negative. Cardiovascular: Negative. Gastrointestinal: Negative. Endocrine: Negative. Genitourinary: Negative. Musculoskeletal: Positive for arthralgias, back pain, gait problem and myalgias. Skin: Negative. Allergic/Immunologic: Negative. Hematological: Negative. Psychiatric/Behavioral: Positive for dysphoric mood (stable). Objective Physical Exam Vitals reviewed. Constitutional: General: She is in acute distress. HENT: Head: Normocephalic. Eyes: Conjunctiva/sclera: Conjunctivae normal. Cardiovascular: Rate and Rhythm: Normal rate and regular rhythm. Heart sounds: Normal heart sounds. No murmur heard. Pulmonary: Effort: Pulmonary effort is normal. Breath sounds: Normal breath sounds. Musculoskeletal: General: Tenderness (multiple joints, low back) present. Right lower leg: No edema. Left lower leg: No edema. Lymphadenopathy: Cervical: No cervical adenopathy. Neurological: Mental Status: She is oriented to person, place, and time. Psychiatric: Thought Content: Thought content normal. Judgment: Judgment normal. Assessment/Plan Nadia was seen today for controlled sub. Diagnoses and all orders for this visit: Rheumatoid arthritis involving multiple sites, unspecified whether rheumatoid factor present ([facility]) - HYDROcodone-acetaminophen (NORCO) 7.5-325 mg per tablet; Take 1 tablet by mouth 2 (two) times a day as needed for pain. Status post partial amputation of left foot ([facility]) Diabetic polyneuropathy associated with type 2 diabetes mellitus ([facility]) - TSH; Future Severe depression ([facility]) PAD (peripheral artery disease) ([facility]) Compression fracture of L1 vertebra with routine healing, subsequent encounter Mixed hyperlipidemia - Lipid panel; Future The hydrocodone is reviewed, it is easing her pain and allowing her to participate in her ADLs and other activities that are limited mostly by her RA, but also by her more recent compression fracture that still causes her some distress as well as her neuropathy and to a lesser extent her PAD- as these are chronic conditions and as using this twice daily does improve her mobility with provide her with quantity sufficient to use twice daily She is due also for her lipid check and her yearly thyroid check, the other labs she has checked by Dr Palomino and she knows to reschedule her apt with him She is also somewhat limited by a previous amputation although this no longer causes her pain Her mood is stable for her, will continue to monitor Will see her back in 3 months for her controlled substance review The OARRS/MAPPS database was reviewed today and found to be appropriate. No indication of medication diversion, or non compliance. BECCA Cordero 12/05/23 1329 documented in this encounter [facility] 11-29-2023 History of Presen t illness Narrative The OARRS/MAPPS database was reviewed today and found to be appropriate. No indication of medication diversion, or non compliance. BECCA Cordero 11/29/23 0745 documented in this encounter [facility] 11-15-2023 History of Presen t illness Narrative The OARRS/MAPPS database was reviewed today and found to be appropriate. No indication of medication diversion, or non compliance. BECCA Cordero 11/15/23 0759 documented in this encounter [facility] 10-16-2023 Miscellaneous Notes Formattin g of this note might be different from the original. She has requesting a refill of her controlled substance but she is overdue for an appointment. She needs to set 1 up as soon as possible documented in this encounter [facility] 10-16-2023 Telephone encount er Note She has requesting a refill of her controlled substance but she is overdue for an appointment. She needs to set 1 up as soon as possible [facility] 10-04-2023 Miscellaneous Notes Formattin g of this note might be different from the original. Rx sent in. She is due for a controlled substance recheck next week documented in this encounter [facility] 10-04-2023 Telephone encount er Note Rx sent in. She is due for a controlled substance recheck next week [facility] 07-27-2021 Evaluation note Encounter Date Diagnosis Assessment Notes Jul, Contact with and (suspected) exposure to other viral communicable diseases (ICD-10 - Z20.828) Jul, COVID-19 (ICD-10 - U07.1) Rapid COVID test performed in office today. Advised patient that test was positive. Instructed patient to isolate per CDC guidelines for 10 days from symptom onset. May return to work/activities outside home after isolation period as long as symptoms are improving and has been afebrile for 24 hours without use of antipyretic. Advised patient that health dept. will be in contact as results are reported to them. Advised patient that treatment of COVID is with viral supportive care rx of Tessalon Perles as needed and Albuterol Inhaler as needed, Tylenol/Motrin as needed for body aches/fever. Increase fluids and rest. Encouraged use of cool mist humidifier. Follow-up with PCP to advise of positive result and further management need. Immediate eval for SOB, difficulty, chest pain, fevers that do not break with antipyretic or any other concerning symptoms as reviewed on patient education handout. Patient verbalizes understanding and is agreeable to treatment plan. Patient left in stable condition Jul, Other Additional time spent conducting pre-visit phone call, screening for symptoms, instructions on social distancing, application and removal of PPE, and cleaning of examination room, equipment and supplies was preformed. Patient education given for testing methodology and results. Patient care instructions given in writting by [facility] At Home document [facility] Other Evaluation note* Diagnosis Compression fracture of L1 vertebra with routine healing, subsequent encounter [facility] Diagnosis Compression fracture of L1 vertebra with routine healing, subsequent encounter [facility] Diagnosis Compression fracture of L1 vertebra with routine healing, subsequent encounter [facility] Diagnosis Rheumatoid arthritis involving multiple sites, unspecified whether rheumatoid factor present ([facility])- Primary Status post partial amputation of left foot ([facility]) Diabetic polyneuropathy associated with type 2 diabetes mellitus ([facility] [facility] [place] Severe depression ([facility]) Depressive disorder, not elsewhere classified PAD (peripheral artery disease) ([facility] [place]) Unspecified peripheral vascular disease Compression fracture of L1 vertebra with routine healing, subsequent encounter Mixed hyperlipidemia documented in this encounter [facility] SystemHistory general Narrative - Reported* Type Description Date Medical History diabetes mallitus Medical History chronic depression Medical History high blood pressure Medical History high cholesterol Medical History rheumatoid arthritis Surgical History open heart surgery [facility] Other InstructionsNot on filedocumented in this encounter [facility] SystemInstructionsNot on filedocumented in this encounter [facility] SystemInstructionsNot on filedocumented in this encounter [facility] SystemInstructionsNot on filedocumented in this encounter [facility] Summary Purpose Family History No Family History Records FoundNo Family History Records FoundNo Family History Records FoundNo Family History Records FoundNo Family History Records FoundNo Family History Records Found Advance Directives No Advanced Directives Records FoundNo Advanced Directives Records FoundNo Advanced Directives Records FoundNo Advanced Directives Records FoundNo Advanced Directives Records FoundNo Advanced Directives Records Found Hospital Course Note MR#: [id number] [facility] Pt. Name: Monica Acosta Admitted: 06/30/2020 Discharged: 07/14/2020 Date of : 1960 Physician: Dionne Hyatt MD DISCHARGE SUMMARY PRIMARY DIAGNOSES: 1. L1 compression fractures status post L1 vertebroplasty on July 01. 2. Syncope that was associated with medication related. Cardizem dose had been cut down to 180 mg and atenolol was kept as 50 mg. The patient is doing okay without any problem. 3. History of Pott's disease. Needs to follow with Dr. Ibarra. 4. Type 1 insulin-dependent diabetes mellitus. Continue the current regimen and follow up with the primary bench molder. HOSPITAL COURSE: The patient is a 59-year-old woman with recurrent falls and syncope exacerbated by atenolol and diltiazem dose increases, status post L1 decompression, underwent L1 vertebroplasty on July 01 and was doing okay, no active complaints status post the patient did not develop any complications. The patient had been doing good fo (more content not included)... Additional Source Comments INFORMATION SOURCE (unrecogn ized section and content) DATE CREATED AUTHOR 10/15/2020 [facility] DATE CREATED AUTHOR AUTHOR'S ORGANIZ ATION 09/23/2021 [facility] DATE CREATED AUTHOR AUTHOR'S ORGANIZ ATION 10/19/2022 [facility] DATE CREATED AUTHOR AUTHOR'S ORGANIZ ATION 08/03/2023 [facility] EPIC DATE CREATED AUTHOR AUTHOR'S ORGANIZ ATION 04/16/2024 [facility] DATE CREATED AUTHOR AUTHOR'S ORGANIZ ATION 04/16/2024 [facility] REASON FOR VISIT (unrecogniz ed section and content) Reason Onset Date Comments Med Refill 09/12/2023 Reason Onset Date Comments Med Refill 10/04/2023 Reason Onset Date Comments Med Refill 10/16/2023 Reason Onset Date Comments Med Refill 10/31/2023 Reason Onset Date Comments Med Refill 11/14/2023 Reason Comments controlled sub Care Teams (unrecognized sec tion and content) Dry Cleaner Presser Relationship Specialty Start Date End Date Zen Flores DO [address] [facility] [place] [address] PCP - General Family Medicine 09/18/19 Dry Cleaner Presser Relationship Specialty Start Date End Date Zen Flores DO [address] [place] [address] PCP - [facility] 09/18/19 Dry Cleaner Presser Relationship Specialty Start Date End Date Zen Flores DO [address], [place] [address] PCP - [facility] 09/18/19 Dry Cleaner Presser Relationship Specialty Start Date End Date Zen Flores DO [address], [address] [place] [address] [facility] 09/18/19 Dry Cleaner Presser Relationship Specialty Start Date End Date Zen Flores DO [address], [address] [address] [facility] 09/18/19 FOR RECORDS PERTAINING TO PATIENTS WHO ARE OR HAVE BEEN ENROLLED IN A CHEMICAL DEPENDENCY/SUBSTANCEABUSE PROGRAM, SOME INFORMATION MAY BE OMITTED. This clinical summary was aggregated from multiple sources. Caution should be exercised in using it in the provision of clinical care. This summary normalizes information from multiple sources, and as a consequence, information in this document may materially change the coding, format and clinical context of patient data. In addition, data may be omitted in some cases. CLINICAL DECISIONS SHOULD BE BASED ON THE PRIMARY CLINICAL RECORDS. [facility]. provides no warranty or guarantee of the accuracy or completeness of information in this document.
[2024-04-21] MEDS: 0.9 % SODIUM CHLORIDE 1,000 ML 150 ML IV (16:56)
--- NOTE | 2024-04-21 17:25 | ED.LOWEXI1 ---
HPI HPI - Extremity Injury (Lower) General Chief Complaint: Extremity Injury, Lower Stated Complaint: FALL Time Seen by Provider: 04/21/24 16:29 Source: patient Mode of arrival: ambulance Limitations: no limitations History of Present Illness HPI Narrative: Pt brought in by EMS after falling at home. Pt has POTS and became dizzy while walking in her home. She tried to get to a chair but lost her footing on the flat floor and fell, injuring both lower legs. EMS reported deformities to both lower leg proximal to the ankles. They applied posterior cardboard and padding splints to both lower legs. They established IV access and gave 75mcg Fentanyl IV, 2mg Versed IV and 4mg Zofran IV. Patient arrived to our ED feeling more comfortable than when EMS arrived. She denied any injury to the other extremities, torso, head, neck or back. No LOC. No pain in the hips or pelvis, thighs or knees. Related Data Home Medications ?Medication ?Instructions ?Recorded ?Confirmed atenolol 50 mg tablet 50 mg PO DAILY 02/05/23 03/29/23 celecoxib 200 mg capsule 200 mg PO Q24H 02/05/23 03/29/23 duloxetine 30 mg capsule,delayed 30 mg PO .DA 02/05/23 03/29/23 release duloxetine 60 mg capsule,delayed 60 mg PO DAILY 02/05/23 03/29/23 release hydrocodone 7.5 mg-acetaminophen 1 tab PO Q8H 02/05/23 03/29/23 325 mg tablet nitroglycerin 0.4 mg sublingual 0.4 mg sublingual Q5M PRN chest 02/05/23 03/29/23 tablet pain Previous Rx's ?Medication ?Instructions ?Recorded ondansetron 4 mg disintegrating 4 mg PO Q6H PRN nausea and 03/29/23 tablet vomiting #12 tabs Allergies Allergy/AdvReac Type Severity Reaction Status Date / Time lisinopril Allergy Intermediate Verified 03/29/23 12:57 Opioid HPI Opioid Management Most Recent Pain and Opioid Data: Last Pain Scale 5 04/21/24 18:17 Last ED Pain Assessment 04/21/24 18:17 PFSH PFSH Social History Smoking status: Never smoker Exam Narrative Exam Narrative: Nurses note and vital signs reviewed and patient is not hypoxic. afebrile General: The patient appears well and in no apparent distress. Patient is resting comfortably on cart. GCS = 15. Skin: Warm, dry, no pallor noted. Head: Normocephalic, atraumatic Neck: Supple, trachea mid-line, no tenderness, no lymphadenopathy. Full ROM and no cervical spinal tenderness. The patient has no step-offs or crepitus noted Eyes: PERRLA, EOMI ENT: TM's clear, no hemotympanum detected, no blood in posterior oropharynx Cardiovascular: Regular Rate and Rhythm Respiratory: Patient is in no distress, no accessory muscle use, lungs are clear to auscultation, no wheezing, rales or rhonchi Chest Wall: no tenderness, no flail chest, contusion, abrasion, or signs of trauma. Back: No thoracic vertebral or lumbar vertebral tenderness to palpation. Negative straight leg raise bilaterally. No ecchymosis, abrasions, lacerations noted. Musculoskeletal: Deformity in both tibia and fibulas with instability suggesting bilateral tibial and fibular fractures. There is associated swelling, erythema and pain at the fracture sites. She is neurovascularly intact distal to the fractures. no additional sign of long bone fracture. Pulses at femoral, DP, PT, and popiteal were 2+ bilaterally. Moves two upper extremities in all modalities with 5/5 strength. GI: Normal bowel sounds, no tenderness to palpation, no masses appreciated. No rebound, guarding, or rigidity noted. Neurological: A&O x4, normal equal system engineer strength, normal finger to nose, normal speech, normal coordination, normal motor, normal sensory. Psychiatric: Cooperative Constitutional Vital Signs, click to edit/add: Last Vital Signs Temp 98.0 F 04/21/24 16:33 Pulse 97 H 04/21/24 16:33 Resp 18 04/21/24 16:33 BP 118/67 04/21/24 16:33 Pulse Ox 95 04/21/24 16:48 O2 Del Method Nasal Cannula 04/21/24 16:48 O2 Flow Rate 4 04/21/24 16:48 Course Vital Signs Vital signs: Vital Signs Temperature 98.0 F 04/21/24 16:33 Pulse Rate 97 H 04/21/24 16:33 Respiratory Rate 18 04/21/24 16:33 Blood Pressure 118/67 04/21/24 16:33 Pulse Oximetry 94 L 04/21/24 16:33 Oxygen Delivery Method Nasal Cannula 04/21/24 16:33 Oxygen Delivery Flow Rate 4 04/21/24 16:33 Temperature 98.0 F 04/21/24 16:33 Pulse Rate 97 H 04/21/24 16:33 Respiratory Rate 18 04/21/24 16:33 Blood Pressure 118/67 04/21/24 16:33 Pulse Oximetry 95 04/21/24 16:48 Oxygen Delivery Method Nasal Cannula 04/21/24 16:48 Oxygen Delivery Flow Rate 4 04/21/24 16:48 MDM - Extremity Injury (Lower) MDM Narrative Medical decision making narrative: Patient had already received 75 mg of fentanyl from EMS as well as 2 mg of Versed and 4 mg of Zofran. Portable x-rays of the bilateral tib-fib's were obtained. The patient was placed on cardiac cath tech and EKG obtained. Blood drawn and sent for evaluation. X-rays confirmed what was suspected on examination at the time of patient's presentation - Fractures of both and fibula's. I reached out to our local orthopedist. I texted Dr. Sanchez a copy of the patient's x-rays. He felt this was too complicated to manage at the [facility] and recommended transfer to a tertiary trauma facility. The patient asked to be transferred to [facility], when she learned that she could not stay here at the [facility]. Arrangements made for the patient be transferred from our emergency department to the emergency department at [facility] to be admitted for surgical repair and further treatment of the acute close fractures of both tibia and fibulas. Dr Dorsey - trauma surgeon stone mill operator at [facility] - and he agreed to have the patient sent to their facility by ER to ER transfer. I spoke with Dr Costa - ER attending - who accepted the transfer to [facility] ED. The PA and I applied posterior OCL splints to both lower legs - the one on the left was up to the popliteal area to suppor the proximal fibular fx. Patient neurovascularly before and after the splinting. Arrangements made to transfer the patient to [facility] E.D. by ambulance. Lab Data Attestation: I reviewed the patient's lab results. Imaging Data xr both tib/fib: Radiologist's impression: ITS Impressions Tibia/Fibula X-Ray 04/21/24 16:38 IMPRESSION: 1. Right lower leg demonstrates comminuted fractures distal tibial shaft of fibula proximal to the ankle. 2. Fracture proximal fibula on the right at the knee mildly displaced. 3. Left lower leg comminuted fractures distal tibia and fibular shaft proximal to the ankle. Question a hairline nondisplaced fracture fibular neck at the knee. 4. Bones appear demineralized. No suspicious focal bone lesion. Degenerative changes at the ankles poorly visualized. 5. postoperative findings right and left foot partially imaged. Electronically authenticated by: JOEL DONAHUE Date: 04/21/2024 18:27 ECG Data Attestation: I personally reviewed and interpreted this ECG as follows: Interpretation: EKG interpretation: Emergency Department physician interpretation. Normal sinus rhythm at 99bpm. Normal axis, normal intervals and no ST segment elevation or depression. Normal EKG Discharge Plan Discharge Chief Complaint: Extremity Injury, Lower Clinical Impression: Closed bilateral tibial fractures, Closed fracture of both fibulae Patient Disposition: [facility] Time of Disposition Decision: 18:07 Discharge Location: [facility]
[2024-04-21 17:27] LABS: Basophils Absolute Auto 0.1 10^3/uL (0.0-0.1); Basophils Percent Auto 0.7 % (0.2-2.0); Eosinophils Absolute Auto 0.4 10^3/uL (0.0-0.7); Eosinophils Percent Auto 3.8 % (0.9-7.0); Hematocrit 40.9 % (36.0-48.0); Hemoglobin 13.4 g/dL (12.0-16.0); Immature Granulocytes Abs Auto 0.04 10^3/uL (0.00-0.03); Immature Granulocytes Pct Auto 0.4 % (0.0-0.5); Lymphocytes Absolute Auto 1.9 10^3/uL (1.2-3.8); Lymphocytes Percent Auto 16.8 % (20.5-60.0); Mean Corpuscular HGB Conc 32.8 g/dL (29.9-35.2); Mean Corpuscular Hemoglobin 30.5 pg (26.7-34.0); Mean Platelet Volume 10.6 fL (9.5-13.5); Neutrophils Absolute Auto 7.8 10^3/uL (1.4-6.5); Neutrophils Percent Auto 69.3 % (43.0-75.0); Platelet Count 395 10^3/uL (150-450); Red Cell Distribution Width 13.2 % (11.0-15.0); White Blood Count 11.2 10^3/uL (4.0-11.0)
[2024-04-21 17:34] LABS: Anion Gap 11.5; BUN Creatinine Ratio 34.4; Calcium 9.2 mg/dL (8.5-10.1); Carbon Dioxide 30.5 mmol/L (21.0-32.0); Chloride 100 mmol/L (98-107); Estimated GFR (African America >60 (>=60); Estimated GFR (Non-African Ame >60 (>=60); Glucose 60 mg/dL (74-106); Sodium 138 mmol/L (136-145)
[2024-04-21 17:41] LABS: Partial Thromboplastin Time 25.4 sec (22.3-36.2)
[2024-04-21 17:43] LABS: INR 0.97; Prothrombin Time 10.3 sec (9.0-11.6)
[2024-04-21] MEDS: ONDANSETRON PF 4 MG/2 ML VIAL IV (18:13)
[2024-04-21] MEDS: HYDROMORPHONE HCL 1 MG/ML CARTRIDGE 0.5 MG IVP (18:13)
[2024-04-21] MEDS: DEXTROSE 50 %-WATER 25 GM/50 ML SYRINGE IV (18:47)
[2024-04-21 19:22] LABS: Glucometer 192 mg/dL (74-106)
== END 2024-04-21 20:40 | disposition short-term general hospital (02) ==
PROVIDERS: Emergency Provider Emergency Medicine; PCP Family Medicine
DX: S82.302A Unspecified fracture of lower end of left tibia, initial encounter for closed fracture (principal); S82.301A Unspecified fracture of lower end of right tibia, initial encounter for closed fracture; S82.492A Other fracture of shaft of left fibula, initial encounter for closed fracture; S82.491A Other fracture of shaft of right fibula, initial encounter for closed fracture; G90.A Postural orthostatic tachycardia syndrome [POTS]; W19.XXXA Unspecified fall, initial encounter
CPT/HCPCS: 29505; 29515; 36415; 73590; 80048; 82948; 85025; 85610; 85730; 93005; 96361; 96374; 96375; 99285; J1170; J2405

== ENCOUNTER 2024-07-25 13:52 | Outpatient (OUT) | payer MEDICARE, MEDICAID, SELFPAY ==
--- OUTSIDE RECORDS SUMMARY | 2024-07-25 14:07 | XMS_ITS | CCD ---
Author Organization [facility] Care Team Providers Care Knitting Machine Operator Name Role Phone SELF, REFERRED Referring Unavailable YISEL, ALEXANDER Admitting Unavailable ELSERENA PATELSEIN K Surgeon Unavailable DIONNE HYATT Attending Unavailable [place] Procedure Practitioner Unavailab le UNKNOWN, PHYSICIAN Primary Care Unavailable SELF, REFERRED Referring Unavailable SELF, REFERRED Primary Care Unavailable ELSERENA PATELSEIN K Attending Unavailable SERENA MARTINEZSEIN K Admitting Unavailable Veronica Mcneill Unavailable RADHA BRANNON Admitting Unavailable RADHA BRANNON Attending Unavailable CHANTALLOWILFREDO, DR ZEN Reinoso Primary Care Unavailable HIGHLRADHA VASQUEZ Consulting Unavailable MIKA, REBECCA Consulting Unavailable RADHA BRANNON Admitting Unavailable CLOVIS, RADHA Nogueira Attending Unavailable FURLONG, DR ZEN Reinoso Primary Care Unavailable RADHA BRANNON Admitting Unavailable RADHA BRANNON Attending Unavailable FURLONG, DR ZEN Reinoso Primary Care Unavailable FURLONG, DR ZEN Reinoso Primary Care Unavailable MARKER, DR MANJARREZ Admitting Unavailable MARKER, DR MANJRAREZ Attending Unavailable MARKER, DR MANJARREZ Consulting Unavailable LAZARUS QUINTANILLA Consulting Unavailable RADHA BRANONN Admitting Unavailable RADHA BRANNON Attending Unavailable FURLOWILFREDO, DR ZEN Reinoso Primary Care Unavailable HIGHLANDERRADHA Consulting Unavailable MIKA, REBECCA Consulting Unavailable RADHA BRANNON Admitting Unavailable RADHA BRANNON Attending Unavailable CHANTALLONG, DR ZEN Reinoso Primary Care Unavailable RADHA BRANNON Admitting Unavailable RADHA BRANNON Attending Unavailable FURLOWILFREDO, DR ZEN Reinoso Primary Care Unavailable ABBAS, DR BLANCO Admitting Unavailable ABBAS, DR BLANCO Attending Unavailable FURLONG, DR ZEN Reinoso Primary Care Unavailable ABBAS, DR BLANCO Consulting Unavailable MINAEBTYLER, DR RICHARD Sidhu Consulting Unavailable RADHA BRANNON [...] FURLONG, DR ZEN Reinoso Primary Care Unavailable OXFORD, DR ANN García Consulting Unavailable HIGHLANDER, RADHA [...] FARIBA Admitting Unavailable DEBI, FARIBA Attending Unavailable FURLOWILFREDO, DR ZEN Reinoso Primary Care Unavailable FURLONG, DR ZEN Reinoso Primary Care Unavailable SCHUYLER, DR JAMES Reinoso Consulting Unavailabl e SCHUYLER, DR JAMES Reinoso Admitting Unavailabl e REINFREYA, DR JAMES Reinoso Attending Unavailabl e FURLONG, DR ZEN Reinoso Primary Care Unavailable HAY, DR HARRELL Admitting Unavailable HAY, DR HARRELL Attending Unavailable HAY, DR HARRELL Consulting Unavailable RICHARD BRONSON Consulting Unavailable FURTHAO, DR ZEN Reinoso Primary Care Unavailable KENDRA, DR HARRELL Admitting Unavailable KENDRA, DR HARRELL Attending Unavailable KENDRA, DR HARRELL Consulting Unavailable MARY, JANETT Consulting Unavailable AKILA, JOEL Consulting Unavailable REMI, GIOVANNI [facility] Consulting Unavailable NADEREThea, DR BACILIO Farnsworth Attending Unavailable LICHA, DR BACILIO Farnsworth Admitting Unavailable FURJAZZYNG, DR ZEN Reinoso Primary Care Unavailable JEAN-PAUL, DR CHAYITO Sidhu Consulting Unavailable ALESSANDRO, DR HENRY Consulting Unavailable SLICKEREThea, DR BACILIO Farnsworth Consulting Unavailable HIGHLCHRISTINA, RADHA Nogueira Consulting Unavailable ANDRADE DIAL Consulting Unavailable ENRRIQUE GONCALVES Consulting Unavailable HIGHLANDER, RADHA Nogueira Procedure Practitioner UnaASH Bedoya Consulting Unavailable FURLONG, DR ZEN Reinoso Primary Care Unavailable FAWWAD, CAMPBELL H Admitting Unavailable FAWWAD, CAMPBELL H Attending Unavailable SHANKAR, DR ANN García Consulting Unavailable ZIEBER, DR RICHARD Sidhu Consulting Unavailable HIGHLANDER, RADHA Nogueira Consulting Unavailable FAFREDERIC, H Consulting Unavailable VAZQUEZ [...] GUAMAN Consulting Unavailable MIKHAIL, DANNY Consulting Unavailable HIGHLRADHA VASQUEZ Admitting Unavailable HIGHLCHRISTINA, RADHA Nogueira Attending Unavailable SANDRA, DR ZEN Reinoso Primary Care Unavailable HIGHLANDER, RADHA Nogueira Consulting Unavailable FURTHAO, DR ZEN Reinoso Admitting Unavailable FURLONG, DR ZEN Reinoso Attending Unavailable FURLONG, DR ZEN Reinoso Primary Care Unavailable HIGHLANDER, RADHA Nogueira Admitting Unavailable HIGHLANDER, RADHA Nogueira Attending Unavailable FURTHAO, DR ZEN Reinoso Primary Care Unavailable ZIEBER, DR RICHARD Sidhu Consulting Unavailable HIGHLANDERRADHA Consulting Unavailable FURLONG, DR ZEN Reinoso Primary Care Unavailable FAWWAD, CAMPBELL H Admitting Unavailable SAM, CAMPBELL H Attending Unavailable SCHUYLER, DR JAMES Reinoso Consulting UnavailPADMINI Allison Consulting Unavailable NORA NARAYAN Consulting Unavailable FAWWAD, CAMPBELL H Consulting Unavailable SARAH SOLIS Consulting Unavailable ANN PEREA Consulting Unavailable IMKHAIL, DANNY Consulting Unavailable HIGHLANDERRADHA Admitting Unavailable HIGHLCHRISTINA, RADHA Nogueira Attending Unavailable SANDRA, DR ZEN Reinoso Primary Care Unavailable RICHARD GAVIN Attending Unavailable Zen Flores DO Primary Care Provider [phone] DEMETRA PORTER Attending Unavailable ZEN FLORES Referring Unavailable ZEN FLORES Primary Care Unavailable ZEN FLORES Attending Unavailable FURLONG, ZEN G Referring Unavailable [...] FURLONG, ZEN G Primary Care Unavailable FURLONG, ZNE G Referring Unavailable FURLONG, ZEN G Primary Care Unavailable PEREZ, BROOKE Referring Unavailable STEENHOFF, ISIDRO Referring Unavailable SHENDGE, VITHAL Referring Unavailable SHENDGE, VITHAL Attending Unavailable SHENDGE, VITHAL Attending Unavailable SHENDGE, VITHAL Attending Unavailable CHONGAUTUMN Referring Unavailable SEAYANTONIO Referring Unavailable SHENDGE, VITHAL Referring Unavailable SHENDGE, VITHAL Referring Unavailable SHENDGE, VITHAL Referring Unavailable PEREZ, BROOKE Referring Unavailable SHENDGE, VITHAL Referring Unavailable SHUCK, CORTNEY Referring Unavailable SHENDGE, VITHAL Referring Unavailable STEENHOFF, ISIDRO Referring Unavailable STEENHOFF, ISIDRO Referring Unavailable HAY, JULIO CESAR Referring Unavailable HI, JIANLIN Admitting Unavailable VELY, AELA Attending Unavailable Allergies Allergy Classification Reported Allergen(s) Allergy Type Date of Onset Reaction(s) Facility (1 source) Adhesive Tape Drug allergy (disorder) [address] [facility] Repository (7 sources) Amino Acids; 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: [LISINOPRIL] Drug Allergy [address] [facility] Repository (1 source) Bee/Wasp/Ant venom; 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: [Bee/Wasp Stings] Propensity to adverse reactions (disorder) [address] [facility] Repository (6 sources) Codeine; 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: [CODEINE] Drug Allergy [address] [facility] Repository (6 sources) Morphine; 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: [MORPHINE] Drug Allergy [address] [facility] Repository (2 sources) bee venom Drug allergy (disorder) The [facility] Repository (4 sources) cilostazol; 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: [CILOSTAZOL] Drug Allergy 0 [facility] Repository (2 sources) Desonide Drug Allergy The [facility] Repository (4 sources) HYDROmorphone; 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: [HYDROMORPHONE] Drug Allergy 0 [facility] Repository (1 source) icosapent ethyl Drug Allergy The [facility] Repository (11 sources) Adhesive agent; 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: [ADHESIVE] Propensity to adverse reactions to drug 1 [facility] (11 sources) Bee pollen; 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: [BEE POLLEN] Drug Allergy 0 [facility] (8 sources) cilostazol Drug Allergy 0 [facility] (8 sources) Codeine Drug Allergy 0 [facility] (8 sources) HYDROmorphone Drug Allergy 0 [facility] (11 sources) icosapent ethyl; 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: [ICOSAPENT ETHYL] Drug Allergy 2 Dizziness [facility] (8 sources) Lisinopril Drug Allergy 0 [facility] (8 sources) Morphine Drug Allergy 0 [facility] (11 sources) Bee Venom Protein (Honey Bee); 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: [BEE VENOM PROTEIN (HONEY BEE)] Propensity to adverse reactions to drug 1 [facility] Medications Current Medications Medication Drug Class(es) Dates Sig (Normalized) Sig (Original) acetaminophen 325 mg / HYDROcodone bitartrate 7.5 mg oral tablet (15 sources) Opioid Agonist Start: 10-18-2023 End: 12-05-2023 take 1 tablet by mouth twice daily as needed for pain HYDROcodone-acetam inophen (NORCO) 7.5-325 mg per tablet Indications: Rheumatoid arthritis involving multiple sites, unspecified whether rheumatoid factor present ([facility]) Take 1 tablet by mouth [...] 10/05/2023 10/16/2023 Discontinued (Reorder) HYDROcodone-Acet aminophen Active [id number] 200 actuat albuterol 0.09 mg/actuat metered dose [...] Start: 04-05-2023 take 1 capsule by mo [facility] in the morning DULoxetine (CYMBALTA) 60 mg [...] disease (17 sources) Atherosclerotic heart disease of [place] coronary artery without angina pectoris; 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: [Acute [...] 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: [Hypertriglyceridemia ] Onset: 11-04-2020 05-21-2022 Chronic E Codes: Fall (3 sources) Unspecified fall, initial encounter; 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: [UNSPECIFIED FALL INITIAL ENCOUNTER] Onset: 05-20-2022 Episodic Esophageal disorders (9 sources) Gastro-esophageal reflux disease without esophagitis; 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: [Gastroesophageal reflux disease] Onset: 08-18-2019 05-21-2022 Chronic Essential hypertension (11 sources) Essential (primary) hypertension; 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: [Hypertensive disorder] Onset: 08-16-2019 05-21-2022 Chronic Fracture of lower limb (4 sources) Unspecified fracture of shaft of right tibia, initial encounter for open fracture type I or II; 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: [Unspecified fracture of shaft of right fibula, initial encounter for open fracture type I or II] Onset: 04-22-2024 Episodic Fracture of lower limb (4 sources) Unspecified fracture of shaft of left tibia, initial encounter for closed fracture; 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: [Unspecified fracture of shaft of left fibula, initial encounter for closed fracture] Onset: 04-22-2024 Episodic Genitourinary symptoms and ill-defined conditions (8 sources) [...] ankle and foot] Onset: 05-13-2022 Chronic Osteoporosis (11 sources) Age-related osteoporosis without current pathological fracture; 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: [Senile osteoporosis] Onset: 09-18-2019 09-18-2019 Chronic Other acquired deformities (1 source) Contracture, left ankle; 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: [CONTRACTURE LEFT ANKLE] Onset: 03-22-2022 Chronic Other aftercare (1 source) penitentiary (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; 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: [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 INSULIN] Onset: 10-19-2022 Episodic Other aftercare (1 source) Other terminal system operator (current) drug therapy; 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: [OTH LONGTERM CURRENT DRUG THERAPY] Onset: 10-19-2022 Episodic Other aftercare (1 source) assistant terminal manager (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 aspirin; 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: [LONGTERM 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 ASPIRIN] Onset: 08-18-2022 Episodic [...] 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: [DIARRHEA UNSPECIFIED] Onset: 08-18-2022 Episodic Other gastrointestinal disorders (3 sources) Constipation, unspecified; 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: [CONSTIPATION UNSPECIFIED] Onset: 11-05-2021 Episodic Other lower respiratory disease (1 source) [...] procedures, not elsewhere classified, initial encounter; 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: [OTH COMPLICATIONS PROC NEC INITIAL] Onset: 03-18-2022 Episodic Fluid and electrolyte disorders (1 source) [...] with routine healing] Onset: 05-21-2022 Episodic Other injuries and conditions due to [...] Test Name Value Interpretation Reference Range Facility 36on 05-15-2024 36 Looks like patient told Dr Shipman was already taking these medications. Dr shipman did not prescribe patient anything. She will need to contact pcp office. [facility] 36 Kady from [facility] called for clarification on calcium and vit D3 order from , [facility] does not currently have an order for calcium and vit D3 for patient, please fax clarification to Fax:[phone] [facility] 36on 05-08-2024 36 [facility] 36 [facility] Telephoneon 05-08-2024 Telephone [facility] 30on 05-01-[address] [facility] [address] [facility] BASIC METABOLIC PANELon 04-06 Anion gap [Moles/Vol] 10 mmol/L Normal 7-20 [facility] Comment on above: Performed By: #### L [id number] ####[facility] ([facility])[address] [place] [address] Calcium [Mass/Vol] 9.1 mg/dL Normal 8.6-10.3 [facility] Comment on above: Performed By: #### L [id number] ####[facility] [place] [address] Chloride [Moles/Vol] 95 mmol/L Low 98-107 [facility] Comment on above: Performed By: #### L [id number] ####[facility] ([facility])[address] [place] [address] CO2 [Moles/Vol] 32 mmol/L High 21-31 [facility] Comment on above: Performed By: #### L [id number] ####[facility] ([facility])[address] [place] [address] Creatinine [Mass/Vol] 0.76 mg/dL Normal 0.60-1.20 [facility] Comment on above: Performed By: #### L [id number] ####[facility] [place] [address] GLOMERULAR FILTRATION RATE ML/MIN/1.73 SQ M.PREDICTED 87.4 mL/min/1.73m*2 Normal >60.0 [facility] Comment on above: Result Comment: [facility]???s estimated glomerular filtration rate (eGFR) will no longer include consideration of race in its calculation. The National Kidney Foundation???s eGFR Task Force developed new recommendations for the estimation of the glomerular filtration rate in the [place] They recommend immediate implementation of the new equation refit without the race variable in all laboratories because the calculation does not include race. In addition to not including race in the calculation and reporting, it included diversity in its development, and has acceptable performance characteristics and potential consequences that do not disproportionately affect any one group of individuals. Performed By: #### L [id number] ####[facility] ([facility])[address] [place] [address] Glucose [Mass/Vol] 102 mg/dL High 70-100 [facility] Comment on above: Performed By: #### L [id number] ####[facility] ([facility])[address] [place] [address] Potassium [Moles/Vol] 4.4 mmol/L Normal 3.5-5.1 [facility] Comment on above: Performed By: #### L [id number] ####[facility] ([facility])[address] [place] [address] Sodium [Moles/Vol] 133 mmol/L Low 136-145 [facility] Comment on above: Performed By: #### L [id number] ####[facility] ([facility])[address] [place] [address] Urea nitrogen [Mass/Vol] 23 mg/dL Normal 7-25 [facility] Comment on above: Performed By: #### L [id number] ####[facility] ([facility])[address] [place] [address] UREA NITROGEN/CREATININE (MASS RATIO) IN SER/PLAS 30.[address] [facility] Comment on above: Performed By: #### L [id number] ####[facility] ([facility])[address] [place] [address] CBCon 05-01-2024 Erythrocyte distribution width (RBC) [Ratio] 15.1 % High 11.5-15.0 [facility] Comment on above: Performed By: #### L [id number] ####[facility] ([facility])[address] [place] [address] ERYTHROCYTE MEAN CORPUSCULAR HEMOGLOBIN CONCENTRATION (G/DL) BY AUTOMATED 32.2 g/dL Normal 32.0-35.0 [facility] Comment on above: Performed By: #### L [id number] ####[facility] [place] [address] Hematocrit (Bld) [Volume fraction] 35.4 % Low 36.0-48.0 [facility] Comment on above: Performed By: #### L [id number] ####[facility] [place] [address] Hemoglobin (Bld) [Mass/Vol] 11.4 g/dL Low 12.0-15.0 [facility] Comment on above: Performed By: #### L [id number] ####[facility] [address] MCH (RBC) [Entitic mass] 29.8 pg Normal 27.0-33.0 [facility] Comment on above: Performed By: #### L [id number] ####[facility] ([facility])[address] [address] MCV (RBC) [Entitic vol] 92.7 fL Normal 82.0-98.0 [facility] Comment on above: Performed By: #### L [id number] ####[facility] ([facility])[address] [address] PLATELETS (10*3/UL) IN BLOOD AUTOMATED COUNT 425 10*3/uL High 150-400 [facility] Comment on above: Performed By: #### L [id number] ####[facility] [place], [place] [address] RBC (Bld) [#/Vol] 3.82 10*6/uL Normal 3.80-5.00 [facility] Comment on above: Performed By: #### L [id number] ####[facility] ([facility])[address] [place], [place] [address] WBC (Bld) [#/Vol] 9.39 10*3/uL Normal 4.00-10.60 [facility] Comment on above: Performed By: #### L [id number] ####[facility] ([facility])[address] [place] [address] CONSULTon 05-01-2024 CONSULT 13:25-SW requested transport for patient-await response. 14:40-SW notified [facility] can transport at 3:20pm-SW to make packet. 15:15-SW gave packet to [facility] crew.[id number] completed. OTM will continue to follow. Normal [facility] DSon 05-01-[address] [facility] MAGNESIUMon 05-01-2024 Magnesium [Mass/Vol] 1.9 mg/dL Normal 1.9-2.7 [facility] Comment on above: Performed By: #### L [id number] ####[facility] ([facility])[address] [place] [address] NURSNOTEon 05-01-2024 NURSNOTE Web Press Operator attempted to call [facility] for report. Web Press Operator was on hold for 5 minutes, was not able to leave voicemail. Normal [facility] PHOSPHORUSon 05-01-2024 Magnesium [Mass/Vol] 3.5 mg/dL Normal 2.5-5.0 [facility] Comment on above: Performed By: #### L [id number] ####[facility] ([facility])[address] [place] [address] POCT GLUCOSE METER UNSOLICIT ED RESULTSon 05-01-2024 Glucose [Mass/Vol] 99 mg/dL Normal 70-105 [facility] Comment on above: Order Comment: Waive d Testing in the ED is performed under the ED CLIA certificate #[id number]. Result Comment: cmci [email or web address] Performed By: #### L [id number] ####[facility] ([facility])[address] [place] [address] Glucose [Mass/Vol] 103 mg/dL Normal 70-105 [facility] Comment on above: Order Comment: Waive d Testing in the ED is performed under the ED CLIA certificate #[id number]. Result Comment: elac umsky Performed By: #### L [id number] ####[facility] [place] [address] BASIC METABOLIC PANELon 08-2 Anion gap [Moles/Vol] 11 mmol/L Normal 7-20 [facility] Comment on above: Performed By: #### L [id number] ####[facility] [place] [address] Calcium [Mass/Vol] 9.0 mg/dL Normal 8.6-10.3 [facility] Comment on above: Performed By: #### L [id number] ####[facility] ([facility])[address] [place] [address] Chloride [Moles/Vol] 94 mmol/L Low 98-107 [facility] Comment on above: Performed By: #### L [id number] ####[facility] ([facility])[address] [place] [address] CO2 [Moles/Vol] 34 mmol/L High 21-31 [facility] Comment on above: Performed By: #### L [id number] ####[facility] ([facility])[address] [place] [address] Creatinine [Mass/Vol] 0.78 mg/dL Normal 0.60-1.20 [facility] Comment on above: Performed By: #### L [id number] ####[facility] ([facility])[address] [place] [address] GLOMERULAR FILTRATION RATE ML/MIN/1.73 SQ M.PREDICTED 84.8 mL/min/1.73m*2 Normal >60.0 [facility] Comment on above: Result Comment: [facility]???s estimated glomerular filtration rate (eGFR) will no longer include consideration of race in its calculation. The National Kidney Foundation???s eGFR Task Force developed new recommendations for the estimation of the glomerular filtration rate in the [place] They recommend immediate implementation of the new equation refit without the race variable in all laboratories because the calculation does not include race. In addition to not including race in the calculation and reporting, it included diversity in its development, and has acceptable performance characteristics and potential consequences that do not disproportionately affect any one group of individuals. Performed By: #### L [id number] ####[facility] ([facility])[address] [place] [address] Glucose [Mass/Vol] 121 mg/dL High 70-100 [facility] Comment on above: Performed By: #### L [id number] ####[facility] ([facility])[address] [place] [address] Potassium [Moles/Vol] 4.4 mmol/L Normal 3.5-5.1 [facility] Comment on above: Performed By: #### L [id number] ####[facility] ([facility])[address] [place] [address] Sodium [Moles/Vol] 135 mmol/L Low 136-145 [facility] Comment on above: Performed By: #### L [id number] ####[facility] ([facility])[address] [place] [address] Urea nitrogen [Mass/Vol] 20 mg/dL Normal 7-25 [facility] Comment on above: Performed By: #### L [id number] ####[facility] ([facility])[address] [place] [address] UREA NITROGEN/CREATININE (MASS RATIO) IN SER/PLAS 25.[address] [facility] Comment on above: Performed By: #### L [id number] ####[facility] ([facility])[address] [place] [address] CBCon 04-30-2024 Erythrocyte distribution width (RBC) [Ratio] 14.7 % Normal 11.5-15.0 [facility] Comment on above: Performed By: #### L [id number] ####[facility] ([facility])[address] [place] [address] ERYTHROCYTE MEAN CORPUSCULAR HEMOGLOBIN CONCENTRATION (G/DL) BY AUTOMATED 31.7 g/dL Low 32.0-35.0 [facility] Comment on above: Performed By: #### L [id number] ####[facility] ([facility])[address] [place] [address] Hematocrit (Bld) [Volume fraction] 36.3 % Normal 36.0-48.0 [facility] Comment on above: Performed By: #### L [id number] ####[facility] ([facility])[address] [address] Hemoglobin (Bld) [Mass/Vol] 11.5 g/dL Low 12.0-15.0 [facility] Comment on above: Performed By: #### L [id number] ####[facility] ([facility])[address] [place] [address] MCH (RBC) [Entitic mass] 30.3 pg Normal 27.0-33.0 [facility] Comment on above: Performed By: #### L [id number] ####[facility] ([facility])[address] [place] [address] MCV (RBC) [Entitic vol] 95.8 fL Normal 82.0-98.0 [facility] Comment on above: Performed By: #### L [id number] ####[facility] ([facility])[address] [place] [address] PLATELETS (10*3/UL) IN BLOOD AUTOMATED COUNT 381 10*3/uL Normal 150-400 [facility] Comment on above: Performed By: #### L [id number] ####[facility] ([facility])[address] [place] [address] RBC (Bld) [#/Vol] 3.79 10*6/uL Low 3.80-5.00 [facility] Comment on above: Performed By: #### L [id number] ####[facility] ([facility])[address] [place] [address] WBC (Bld) [#/Vol] 9.02 10*3/uL Normal 4.00-10.60 [facility] Comment on above: Performed By: #### L [id number] ####[facility] ([facility])[address] [place] [address] MAGNESIUMon 04-30-2024 Magnesium [Mass/Vol] 1.8 mg/dL Low 1.9-2.7 [facility] Comment on above: Performed By: #### L [id number] ####[facility] ([facility])[address] [place] [address] PHOSPHORUSon 04-30-2024 Magnesium [Mass/Vol] 3.2 mg/dL Normal 2.5-5.0 [facility] Comment on above: Performed By: #### L [id number] ####[facility] ([facility])[address] [place] [address] POCT GLUCOSE METER UNSOLICIT ED RESULTSon 04-30-2024 Glucose [Mass/Vol] 160 mg/dL High 70-105 [facility] Comment on above: Order Comment: Waive d Testing in the ED is performed under the ED CLIA certificate #[id number]. Result Comment: [email or web address] [email or web address] Performed By: #### L [id number] ####[facility] ([facility])[address] [place] [address] Glucose [Mass/Vol] 111 mg/dL High 70-105 [facility] Comment on above: Order Comment: Waive d Testing in the ED is performed under the ED CLIA certificate #[id number]. Result Comment: [email or web address] [email or web address] Performed By: #### L [id number] ####[facility] ([facility])[address] [place] [address] Glucose [Mass/Vol] 172 mg/dL High 70-105 [facility] Comment on above: Order Comment: Waive d Testing in the ED is performed under the ED CLIA certificate #[id number]. Result Comment: epoo [email or web address] Performed By: #### L [id number] ####[facility] ([facility])[address] [place] [address] Glucose [Mass/Vol] 160 mg/dL High 70-105 [facility] Comment on above: Order Comment: Waive d Testing in the ED is performed under the ED CLIA certificate #[id number]. Result Comment: [email or web address] [email or web address] Performed By: #### L [id number] ####[facility] ([facility])[address] [place] [address] BASIC METABOLIC PANELon 08-2 Anion gap [Moles/Vol] 10 mmol/L Normal 7-20 [facility] Comment on above: Performed By: #### L [id number] ####[facility] ([facility])[address] [place] [address] Calcium [Mass/Vol] 8.9 mg/dL Normal 8.6-10.3 [facility] Comment on above: Performed By: #### L [id number] ####[facility] ([facility])[address] [place] [address] Chloride [Moles/Vol] 95 mmol/L Low 98-107 [facility] Comment on above: Performed By: #### L [id number] ####[facility] ([facility])[address] [place] [address] CO2 [Moles/Vol] 34 mmol/L High 21-31 [facility] Comment on above: Performed By: #### L [id number] ####[facility] ([facility])[address] [place] [address] Creatinine [Mass/Vol] 0.89 mg/dL Normal 0.60-1.20 [facility] Comment on above: Performed By: #### L [id number] ####[facility] ([facility])[address] [place] [address] GLOMERULAR FILTRATION RATE ML/MIN/1.73 SQ M.PREDICTED 72.4 mL/min/1.73m*2 Normal >60.0 [facility] Comment on above: Result Comment: [facility]???s estimated glomerular filtration rate (eGFR) will no longer include consideration of race in its calculation. The National Kidney Foundation???s eGFR Task Force developed new recommendations for the estimation of the glomerular filtration rate in the [place] They recommend immediate implementation of the new equation refit without the race variable in all laboratories because the calculation does not include race. In addition to not including race in the calculation and reporting, it included diversity in its development, and has acceptable performance characteristics and potential consequences that do not disproportionately affect any one group of individuals. Performed By: #### L [id number] ####[facility] ([facility])[address] [place] [address] Glucose [Mass/Vol] 173 mg/dL High 70-100 [facility] Comment on above: Performed By: #### L [id number] ####[facility] ([facility])[address] [place] [address] Potassium [Moles/Vol] 4.7 mmol/L Normal 3.5-5.1 [facility] Comment on above: Performed By: #### L [id number] ####[facility] ([facility])[address] [place] [address] Sodium [Moles/Vol] 134 mmol/L Low 136-145 [facility] Comment on above: Performed By: #### L [id number] ####[facility] ([facility])[address] [place] [address] Urea nitrogen [Mass/Vol] 16 mg/dL Normal 7-25 [facility] Comment on above: Performed By: #### L [id number] ####[facility] ([facility])[address] [place] [address] UREA NITROGEN/CREATININE (MASS RATIO) IN SER/PLAS 18.[address] [facility] Comment on above: Performed By: #### L [id number] ####[facility] ([facility])[address] [place] [address] CBCon 04-29-2024 Erythrocyte distribution width (RBC) [Ratio] 14.6 % Normal 11.5-15.0 [facility] Comment on above: Performed By: #### L [id number] ####[facility] ([facility])[address] [place] [address] ERYTHROCYTE MEAN CORPUSCULAR HEMOGLOBIN CONCENTRATION (G/DL) BY AUTOMATED 31.0 g/dL Low 32.0-35.0 [facility] Comment on above: Performed By: #### L [id number] ####[facility] ([facility])[address] [place] [address] Hematocrit (Bld) [Volume fraction] 33.9 % Low 36.0-48.0 [facility] Comment on above: Performed By: #### L [id number] ####[facility] ([facility])[address] [place] [address] Hemoglobin (Bld) [Mass/Vol] 10.5 g/dL Low 12.0-15.0 [facility] Comment on above: Performed By: #### L [id number] ####[facility] ([facility])[address] [place] [address] MCH (RBC) [Entitic mass] 30.1 pg Normal 27.0-33.0 [facility] Comment on above: Performed By: #### L [id number] ####[facility] ([facility])[address] [place] [address] MCV (RBC) [Entitic vol] 97.1 fL Normal 82.0-98.0 [facility] Comment on above: Performed By: #### L [id number] ####[facility] ([facility])[address] [place] [address] PLATELETS (10*3/UL) IN BLOOD AUTOMATED COUNT 320 10*3/uL Normal 150-400 [facility] Comment on above: Performed By: #### L [id number] ####[facility] ([facility])[address] [place] [address] RBC (Bld) [#/Vol] 3.49 10*6/uL Low 3.80-5.00 [facility] Comment on above: Performed By: #### L [id number] ####[facility] ([facility])[address] [place] [address] WBC (Bld) [#/Vol] 9.12 10*3/uL Normal 4.00-10.60 [facility] Comment on above: Performed By: #### L [id number] ####[facility] ([facility])[address] [place] [address] MAGNESIUMon 04-29-2024 Magnesium [Mass/Vol] 1.9 mg/dL Normal 1.9-2.7 [facility] Comment on above: Performed By: #### L [id number] ####[facility] ([facility])[address] [place] [address] NURSNOTEon 04-29-[address] [facility] PHOSPHORUSon 04-29-2024 Magnesium [Mass/Vol] 3.1 mg/dL Normal 2.5-5.0 [facility] Comment on above: Performed By: #### L [id number] ####[facility] ([facility])[address] [place] [address] POCT GLUCOSE METER UNSOLICIT ED RESULTSon 04-29-2024 Glucose [Mass/Vol] 116 mg/dL High 70-105 [facility] Comment on above: Order Comment: Waive d Testing in the ED is performed under the ED CLIA certificate #[id number]. Result Comment: [email or web address] Performed By: #### L [id number] ####[facility] ([facility])[address] [place] [address] Glucose [Mass/Vol] 153 mg/dL High 70-105 [facility] Comment on above: Order Comment: Waive d Testing in the ED is performed under the ED CLIA certificate #[id number]. Result Comment: [email or web address] [email or web address] Performed By: #### L [id number] ####[facility] ([facility])[address] [place] [address] Glucose [Mass/Vol] 205 mg/dL High 70-105 [facility] Comment on above: Order Comment: Waive d Testing in the ED is performed under the ED CLIA certificate #[id number]. Result Comment: [email or web address] Performed By: #### L [id number] ####[facility] ([facility])[address] [place] [address] Glucose [Mass/Vol] 181 mg/dL High 70-105 [facility] Comment on above: Order Comment: Waive d Testing in the ED is performed under the ED CLIA certificate #[id number]. Result Comment: [email or web address] Performed By: #### L [id number] ####[facility] ([facility])[address] [place] [address] BASIC METABOLIC PANELon 08 Anion gap [Moles/Vol] 7 mmol/L Normal 7-20 [facility] Comment on above: Performed By: #### L [id number] ####[facility] [place] [address] Calcium [Mass/Vol] 8.2 mg/dL Low 8.6-10.3 [facility] Comment on above: Performed By: #### L [id number] ####[facility] [place] [address] Chloride [Moles/Vol] 98 mmol/L Normal 98-107 [facility] Comment on above: Performed By: #### L [id number] ####[facility] [place] [address] CO2 [Moles/Vol] 38 mmol/L High 21-31 [facility] Comment on above: Performed By: #### L [id number] ####[facility] ([facility])[address] [place] [address] Creatinine [Mass/Vol] 0.66 mg/dL Normal 0.60-1.20 [facility] Comment on above: Performed By: #### L [id number] ####[facility] [place] [address] GLOMERULAR FILTRATION RATE ML/MIN/1.73 SQ M.PREDICTED 97.9 mL/min/1.73m*2 Normal >60.0 [facility] Comment on above: Result Comment: [facility]???s estimated glomerular filtration rate (eGFR) will no longer include consideration of race in its calculation. The National Kidney Foundation???s eGFR Task Force developed new recommendations for the estimation of the glomerular filtration rate in the [place] They recommend immediate implementation of the new equation refit without the race variable in all laboratories because the calculation does not include race. In addition to not including race in the calculation and reporting, it included diversity in its development, and has acceptable performance characteristics and potential consequences that do not disproportionately affect any one group of individuals. Performed By: #### L [id number] ####[facility] ([facility])[address] [place] [address] Glucose [Mass/Vol] 65 mg/dL Low 70-100 [facility] Comment on above: Performed By: #### L [id number] ####[facility] ([facility])[address] [facility] [address] Potassium [Moles/Vol] 3.9 mmol/L Normal 3.5-5.1 [facility] Comment on above: Performed By: #### L [id number] ####[facility] ([facility])[address] [facility] [address] Sodium [Moles/Vol] 139 mmol/L Normal 136-145 [facility] Comment on above: Performed By: #### L [id number] ####[facility] ([facility])[address] [facility] [place] [address] Urea nitrogen [Mass/Vol] 15 mg/dL Normal 7-25 [facility] Comment on above: Performed By: #### L [id number] ####[facility] ([facility])[address] [place] [address] UREA NITROGEN/CREATININE (MASS RATIO) IN SER/PLAS 22.[address] [facility] Comment on above: Performed By: #### L [id number] ####[facility] ([facility])[address] [facility] [place] [address] CBCon 04-28-2024 Erythrocyte distribution width (RBC) [Ratio] 14.3 % Normal 11.5-15.0 [facility] Comment on above: Performed By: #### L [id number] ####[facility] ([facility])[address] [place] [address] ERYTHROCYTE MEAN CORPUSCULAR HEMOGLOBIN CONCENTRATION (G/DL) BY AUTOMATED 32.3 g/dL Normal 32.0-35.0 [facility] Comment on above: Performed By: #### L [id number] ####[facility] ([facility])[address] [address] Hematocrit (Bld) [Volume fraction] 31.3 % Low 36.0-48.0 [facility] Comment on above: Performed By: #### L [id number] ####[facility] ([facility])[address] [place] [address] Hemoglobin (Bld) [Mass/Vol] 10.1 g/dL Low 12.0-15.0 [facility] Comment on above: Performed By: #### L [id number] ####[facility] ([facility])[address] [place] [address] MCH (RBC) [Entitic mass] 30.0 pg Normal 27.0-33.0 [facility] Comment on above: Performed By: #### L [id number] ####[facility] ([facility])[address] [place] [address] MCV (RBC) [Entitic vol] 92.9 fL Normal 82.0-98.0 [facility] Comment on above: Performed By: #### L [id number] ####[facility] [place] [address] PLATELETS (10*3/UL) IN BLOOD AUTOMATED COUNT 280 10*3/uL Normal 150-400 [facility] Comment on above: Performed By: #### L [id number] ####[facility] ([facility])[address] [place] [address] RBC (Bld) [#/Vol] 3.37 10*6/uL Low 3.80-5.00 [facility] Comment on above: Performed By: #### L [id number] ####[facility] [place] [address] WBC (Bld) [#/Vol] 7.00 10*3/uL Normal 4.00-10.60 [facility] Comment on above: Performed By: #### L [id number] ####[facility] ([facility])[address] [place] [address] MAGNESIUMon 04-28-2024 Magnesium [Mass/Vol] 2.2 mg/dL Normal 1.9-2.7 [facility] Comment on above: Performed By: #### L [id number] ####[facility] ([facility])[address] [place] [address] NURSNOTEon 04-28-2024 NURSNOTE 0707: Patients glucose found to be 59. Pt declining glucose tabs, instead ate richie crackers and apple juice. Pt also turned off her insulin pump temporarily. 0830: Pt Glucose recheck is 157. Normal [facility] PHOSPHORUSon 04-28-2024 Magnesium [Mass/Vol] 2.1 mg/dL Low 2.5-5.0 [facility] Comment on above: Performed By: #### L [id number] ####[facility] ([facility])[address] [place] [address] POCT GLUCOSE METER UNSOLICIT ED RESULTSon 04-28-2024 Glucose [Mass/Vol] 206 mg/dL High 70-105 [facility] Comment on above: Order Comment: Waive d Testing in the ED is performed under the ED CLIA certificate #[id number]. Result Comment: [email or web address] Performed By: #### L [id number] ####[facility] ([facility])[address] [place] [address] Glucose [Mass/Vol] 207 mg/dL High 70-105 [facility] Comment on above: Order Comment: Waive d Testing in the ED is performed under the ED CLIA certificate #[id number]. Result Comment: [email or web address] Performed By: #### L [id number] ####[facility] ([facility])[address] [place] [address] Glucose [Mass/Vol] 184 mg/dL High 70-105 [facility] Comment on above: Order Comment: Waive d Testing in the ED is performed under the ED CLIA certificate #[id number]. Result Comment: [email or web address] Performed By: #### L [id number] ####[facility] ([facility])[address] [place] [address] Glucose [Mass/Vol] 157 mg/dL High 70-105 [facility] Comment on above: Order Comment: Waive d Testing in the ED is performed under the ED CLIA certificate #[id number]. Result Comment: [email or web address] Performed By: #### L [id number] ####[facility] ([facility])[address] [place] [address] Glucose [Mass/Vol] 59 mg/dL Low 70-105 [facility] Comment on above: Order Comment: Waive d Testing in the ED is performed under the ED CLIA certificate #[id number]. Result Comment: [email or web address] [email or web address] Performed By: #### L [id number] ####[facility] ([facility])[address] [place] [address] 30on 04-27-[address] [facility] BASIC METABOLIC PANELon 04-06 Anion gap [Moles/Vol] 10 mmol/L Normal 7-20 [facility] Comment on above: Performed By: #### L [id number] ####[facility] [place] [address] Calcium [Mass/Vol] 7.6 mg/dL Low 8.6-10.3 [facility] Comment on above: Performed By: #### L [id number] ####[facility] [place] [address] Chloride [Moles/Vol] 100 mmol/L Normal 98-107 [facility] Comment on above: Performed By: #### L [id number] ####[facility] ([facility])[address] [place] [address] CO2 [Moles/Vol] 32 mmol/L High 21-31 [facility] Comment on above: Performed By: #### L [id number] ####[facility] ([facility])[address] [place] [address] Creatinine [Mass/Vol] 0.81 mg/dL Normal 0.60-1.20 [facility] Comment on above: Performed By: #### L [id number] ####[facility] ([facility])[address] [place] [address] GLOMERULAR FILTRATION RATE ML/MIN/1.73 SQ M.PREDICTED 81.0 mL/min/1.73m*2 Normal >60.0 [facility] Comment on above: Result Comment: [facility]???s estimated glomerular filtration rate (eGFR) will no longer include consideration of race in its calculation. The National Kidney Foundation???s eGFR Task Force developed new recommendations for the estimation of the glomerular filtration rate in the [place] They recommend immediate implementation of the new equation refit without the race variable in all laboratories because the calculation does not include race. In addition to not including race in the calculation and reporting, it included diversity in its development, and has acceptable performance characteristics and potential consequences that do not disproportionately affect any one group of individuals. Performed By: #### L [id number] ####[facility] ([facility])[address] [place] [address] Glucose [Mass/Vol] 111 mg/dL High 70-100 [facility] Comment on above: Performed By: #### L [id number] ####[facility] ([facility])[address] [place] [address] Potassium [Moles/Vol] 3.6 mmol/L Normal 3.5-5.1 [facility] Comment on above: Performed By: #### L [id number] ####[facility] ([facility])[address] [place] [address] Sodium [Moles/Vol] 138 mmol/L Normal 136-145 [facility] Comment on above: Performed By: #### L [id number] ####[facility] ([facility])[address] [place] [address] Urea nitrogen [Mass/Vol] 19 mg/dL Normal 7-25 [facility] Comment on above: Performed By: #### L [id number] ####[facility] ([facility])[address] [place] [address] UREA NITROGEN/CREATININE (MASS RATIO) IN SER/PLAS 23.[address] [facility] Comment on above: Performed By: #### L [id number] ####[facility] [place] [address] CBCon 04-27-2024 Erythrocyte distribution width (RBC) [Ratio] 14.2 % Normal 11.5-15.0 [facility] Comment on above: Performed By: #### L [id number] ####[facility] [address] ERYTHROCYTE MEAN CORPUSCULAR HEMOGLOBIN CONCENTRATION (G/DL) BY AUTOMATED 32.0 g/dL Normal 32.0-35.0 [facility] Comment on above: Performed By: #### L [id number] ####[facility] ([facility])[address] [place] [address] Hematocrit (Bld) [Volume fraction] 29.7 % Low 36.0-48.0 [facility] Comment on above: Performed By: #### L [id number] ####[facility] ([facility])[address] [place] [address] Hemoglobin (Bld) [Mass/Vol] 9.5 g/dL Low 12.0-15.0 [facility] Comment on above: Performed By: #### L [id number] ####[facility] ([facility])[address] [address] MCH (RBC) [Entitic mass] 30.0 pg Normal 27.0-33.0 [facility] Comment on above: Performed By: #### L [id number] ####[facility] ([facility])[address] [address] MCV (RBC) [Entitic vol] 93.7 fL Normal 82.0-98.0 [facility] Comment on above: Performed By: #### L [id number] ####[facility] ([facility])[address] [place] [address] PLATELETS (10*3/UL) IN BLOOD AUTOMATED COUNT 280 10*3/uL Normal 150-400 [facility] Comment on above: Performed By: #### L [id number] ####[facility] ([facility])[address] [place] [address] RBC (Bld) [#/Vol] 3.17 10*6/uL Low 3.80-5.00 [facility] Comment on above: Performed By: #### L [id number] ####[facility] ([facility])[address] [facility] [place] [address] WBC (Bld) [#/Vol] 7.40 10*3/uL Normal 4.00-10.60 [facility] Comment on above: Performed By: #### L [id number] ####[facility] ([facility])[address] [place] [address] CK TOTAL AND CKMBon 04-27-20 24 CREATINE KINASE (U/L) IN SER/PLAS 99.0 U/L Normal 30.0-223.0 [facility] Comment on above: Performed By: #### L [id number] ####[facility] ([facility])[address] [place] [address] CREATINE KINASE MB/CREATINE KINASE TOTAL BY CALCULATION 1.5 Normal 0.0-1.9 [facility] Comment on above: Performed By: #### L [id number] ####[facility] ([facility])[address] [place] [address] CREATINE KINASE-MB (NG/ML) IN SER/PLAS 1.5 ng/mL Normal 0.0-5.0 [facility] Comment on above: Performed By: #### L [id number] ####[facility] ([facility])[address] [place] [address] CONSULTon 04-27-[address] [facility] CONSULT Normal [facility] MAGNESIUMon 04-27-2024 Magnesium [Mass/Vol] 1.7 mg/dL Low 1.9-2.7 [facility] Comment on above: Performed By: #### L [id number] ####[facility] ([facility])[address] [place] [address] NURSNOTEon 04-27-[address] [facility] PHOSPHORUSon 04-27-2024 Magnesium [Mass/Vol] 3.4 mg/dL Normal 2.5-5.0 [facility] Comment on above: Performed By: #### L [id number] ####[facility] ([facility])[address] [place] [address] POCT GLUCOSE METER UNSOLICIT ED RESULTSon 04-27-2024 Glucose [Mass/Vol] 174 mg/dL High 70-105 [facility] Comment on above: Order Comment: Waive d Testing in the ED is performed under the ED CLIA certificate #[id number]. Result Comment: [email or web address] Performed By: #### L [id number] ####[facility] ([facility])[address] [place] [address] Glucose [Mass/Vol] 166 mg/dL High 70-105 [facility] Comment on above: Order Comment: Waive d Testing in the ED is performed under the ED CLIA certificate #[id number]. Result Comment: elac umsky Performed By: #### L [id number] ####[facility] ([facility])[address] [place] [address] Glucose [Mass/Vol] 215 mg/dL High 70-105 [facility] Comment on above: Order Comment: Waive d Testing in the ED is performed under the ED CLIA certificate #[id number]. Result Comment: [email or web address] Performed By: #### L [id number] ####[facility] ([facility])[address] [place] [address] Glucose [Mass/Vol] 222 mg/dL High 70-105 [facility] Comment on above: Order Comment: Waive d Testing in the ED is performed under the ED CLIA certificate #[id number]. Result Comment: elac umsky Performed By: #### L [id number] ####[facility] ([facility])[address] [place] [address] Glucose [Mass/Vol] 251 mg/dL High 70-105 [facility] Comment on above: Order Comment: Waive d Testing in the ED is performed under the ED CLIA certificate #[id number]. Result Comment: elac umsky Performed By: #### L [id number] ####[facility] ([facility])[address] [facility] [place] [address] Glucose [Mass/Vol] 142 mg/dL High 70-105 [facility] Comment on above: Order Comment: Waive d Testing in the ED is performed under the ED CLIA certificate #[id number]. Result Comment: [email or web address] Performed By: #### L [id number] ####[facility] ([facility])[address] [place] [place] [address] Glucose [Mass/Vol] 66 mg/dL Low 70-105 [facility] Comment on above: Order Comment: Waive d Testing in the ED is performed under the ED CLIA certificate #[id number]. Result Comment: [email or web address] Performed By: #### L [id number] ####[facility] ([facility])[address] [place] [address] T4, FREEon 04-27-2024 THYROXINE (T4) FREE (NG/DL) IN SER/PLAS 1.00 ng/dL Normal 0.71-1.85 [facility] Comment on above: Performed By: #### L [id number] ####[facility] ([facility])[address] [place] [address] TSHon 04-27-2024 THYROTROPIN (MIU/L) IN SER/PLAS BY DETECTION LIMIT <= 0.05 MIU/L 6.69 mIU/L High 0.34-5.60 [facility] Comment on above: Performed By: #### L [id number] ####[facility] ([facility])[address] [place] [address] 30on 04-26-[address] [facility] BASIC METABOLIC PANELon 04-06 Anion gap [Moles/Vol] 12 mmol/L Normal 7-20 [facility] Comment on above: Performed By: #### L [id number] ####[facility] ([facility])[address] [place] [address] Calcium [Mass/Vol] 8.0 mg/dL Low 8.6-10.3 [facility] Comment on above: Performed By: #### L [id number] ####[facility] ([facility])[address] [place] [address] Chloride [Moles/Vol] 98 mmol/L Normal 98-107 [facility] Comment on above: Performed By: #### L [id number] ####[facility] ([facility])[address] [place] [address] CO2 [Moles/Vol] 28 mmol/L Normal 21-31 [facility] Comment on above: Performed By: #### L [id number] ####[facility] ([facility])[address] [place] [address] Creatinine [Mass/Vol] 0.78 mg/dL Normal 0.60-1.20 [facility] Comment on above: Performed By: #### L [id number] ####[facility] ([facility])[address] [place] [address] GLOMERULAR FILTRATION RATE ML/MIN/1.73 SQ M.PREDICTED 84.8 mL/min/1.73m*2 Normal >60.0 [facility] Comment on above: Result Comment: [facility]???s estimated glomerular filtration rate (eGFR) will no longer include consideration of race in its calculation. The National Kidney Foundation???s eGFR Task Force developed new recommendations for the estimation of the glomerular filtration rate in the [place] They recommend immediate implementation of the new equation refit without the race variable in all laboratories because the calculation does not include race. In addition to not including race in the calculation and reporting, it included diversity in its development, and has acceptable performance characteristics and potential consequences that do not disproportionately affect any one group of individuals. Performed By: #### L [id number] ####[facility] ([facility])[address] [place] [address] Glucose [Mass/Vol] 456 mg/dL Critically high 70-100 [facility] Comment on above: Performed By: #### L [id number] ####[facility] ([facility])[address] [place] [address] Potassium [Moles/Vol] 4.8 mmol/L Normal 3.5-5.1 [facility] Comment on above: Performed By: #### L [id number] ####[facility] ([facility])[address] [place] [address] Sodium [Moles/Vol] 133 mmol/L Low 136-145 [facility] Comment on above: Performed By: #### L [id number] ####[facility] ([facility])[address] [place] [address] Urea nitrogen [Mass/Vol] 22 mg/dL Normal 7-25 [facility] Comment on above: Performed By: #### L [id number] ####[facility] ([facility])[address] [place] [address] UREA NITROGEN/CREATININE (MASS RATIO) IN SER/PLAS 28.[address] [facility] Comment on above: Performed By: #### L [id number] ####[facility] ([facility])[address] [place] [address] BLOOD CULTUREon 04-26-2024 Bacteria identified Cx Nom (Bld) No growth at 5 days Normal [facility] Comment on above: Order Comment: From a different site than #1. Performed By: #### L [id number] ####[facility] ([facility])[address] [place] [address] Bacteria identified Cx Nom (Bld) No growth at 5 days Normal [facility] Comment on above: Performed By: #### L [id number] ####[facility] [place] [address] CBCon 04-26-2024 Erythrocyte distribution width (RBC) [Ratio] 14.6 % Normal 11.5-15.0 [facility] Comment on above: Performed By: #### L [id number] ####[facility] [address] ERYTHROCYTE MEAN CORPUSCULAR HEMOGLOBIN CONCENTRATION (G/DL) BY AUTOMATED 31.0 g/dL Low 32.0-35.0 [facility] Comment on above: Performed By: #### L [id number] ####[facility] ([facility])[address] [place] [address] Hematocrit (Bld) [Volume fraction] 33.2 % Low 36.0-48.0 [facility] Comment on above: Performed By: #### L [id number] ####[facility] [place] [address] Hemoglobin (Bld) [Mass/Vol] 10.3 g/dL Low 12.0-15.0 [facility] Comment on above: Performed By: #### L [id number] ####[facility] [place] [address] MCH (RBC) [Entitic mass] 30.1 pg Normal 27.0-33.0 [facility] Comment on above: Performed By: #### L [id number] ####[facility] ([facility])[address] [place] [address] MCV (RBC) [Entitic vol] 97.1 fL Normal 82.0-98.0 [facility] Comment on above: Performed By: #### L [id number] ####[facility] [place] [address] PLATELETS (10*3/UL) IN BLOOD AUTOMATED COUNT 233 10*3/uL Normal 150-400 [facility] Comment on above: Performed By: #### L [id number] ####[facility] [place] [address] RBC (Bld) [#/Vol] 3.42 10*6/uL Low 3.80-5.00 [facility] Comment on above: Performed By: #### L [id number] ####[facility] [place] [address] WBC (Bld) [#/Vol] 7.37 10*3/uL Normal 4.00-10.60 [facility] Comment on above: Performed By: #### L [id number] ####[facility] ([facility])[address] [place] [address] CBC WITH AUTO DIFFERENTIALon 04-26-2024 Basophils (Bld) [#/Vol] 0.06 10*3/uL Normal 0.00-0.20 [facility] Comment on above: Performed By: #### L [id number] ####[facility] [place] [address] Basophils/100 WBC (Bld) 0.7 % Normal 0.0-1.0 [facility] Comment on above: Performed By: #### L [id number] ####[facility] [place] [address] Eosinophils (Bld) [#/Vol] 0.25 10*3/uL Normal 0.00-0.50 [facility] Comment on above: Performed By: #### L [id number] ####[facility] ([facility])[address] [place] [address] Eosinophils/100 WBC (Bld) 3.1 % Normal 0.0-6.0 [facility] Comment on above: Performed By: #### L [id number] ####[facility] ([facility])[address] [place] [address] Erythrocyte distribution width (RBC) [Ratio] 14.4 % Normal 11.5-15.0 [facility] Comment on above: Performed By: #### L [id number] ####[facility] ([facility])[address] [place] [address] ERYTHROCYTE MEAN CORPUSCULAR HEMOGLOBIN CONCENTRATION (G/DL) BY AUTOMATED 32.2 g/dL Normal 32.0-35.0 [facility] Comment on above: Performed By: #### L [id number] ####[facility] ([facility])[address] [place] [address] Hematocrit (Bld) [Volume fraction] 32.6 % Low 36.0-48.0 [facility] Comment on above: Performed By: #### L [id number] ####[facility] ([facility])[address] [place] [address] Hemoglobin (Bld) [Mass/Vol] 10.5 g/dL Low 12.0-15.0 [facility] Comment on above: Performed By: #### L [id number] ####[facility] ([facility])[address] [place] [address] Immature granulocytes (Bld) [#/Vol] 0.05 10*3/uL Normal 0.00-0.20 [facility] Comment on above: Performed By: #### L [id number] ####[facility] ([facility])[address] [place] [address] Immature granulocytes/100 WBC (Bld) 0.6 % Normal 0.0-1.0 [facility] Comment on above: Performed By: #### L [id number] ####[facility] ([facility])[address] [place] [address] Lymphocytes (Bld) [#/Vol] 0.90 10*3/uL Low 1.20-4.00 [facility] Comment on above: Performed By: #### L [id number] ####[facility] ([facility])[address] [place] [address] Lymphocytes/100 WBC (Bld) 11.0 % Low 20.0-45.0 [facility] Comment on above: Performed By: #### L [id number] ####[facility] ([facility])[address] [place] [address] MCH (RBC) [Entitic mass] 30.0 pg Normal 27.0-33.0 [facility] Comment on above: Performed By: #### L [id number] ####[facility] ([facility])[address] [place] [address] MCV (RBC) [Entitic vol] 93.1 fL Normal 82.0-98.0 [facility] Comment on above: Performed By: #### L [id number] ####[facility] ([facility])[address] [place] [address] Monocytes (Bld) [#/Vol] 0.61 10*3/uL Normal 0.10-1.00 [facility] Comment on above: Performed By: #### L [id number] ####[facility] ([facility])[address] [place] [address] Monocytes/100 WBC (Bld) 7.4 % Normal 5.0-12.0 [facility] Comment on above: Performed By: #### L [id number] ####[facility] ([facility])[address] [place] [address] Neutrophils (Bld) [#/Vol] 6.32 10*3/uL Normal 1.60-7.60 [facility] Comment on above: Performed By: #### L [id number] ####[facility] [place] [address] Neutrophils/100 WBC (Bld) 77.2 % High 40.0-72.0 [facility] Comment on above: Performed By: #### L [id number] ####[facility] ([facility] [place] [address] NRBC (PER 100 WBCS) BY AUTOMATED COUNT 0.0 % Normal 0 [facility] Comment on above: Performed By: #### L [id number] ####[facility] ([facility])[address] [place] [address] PLATELETS (10*3/UL) IN BLOOD AUTOMATED COUNT 290 10*3/uL Normal 150-400 [facility] Comment on above: Performed By: #### L [id number] ####[facility] ([facility])[address] [place] [address] RBC (Bld) [#/Vol] 3.50 10*6/uL Low 3.80-5.00 [facility] Comment on above: Performed By: #### L [id number] ####[facility] ([facility])[address] [place] [address] WBC (Bld) [#/Vol] 8.19 10*3/uL Normal 4.00-10.60 [facility] Comment on above: Performed By: #### L [id number] ####[facility] ([facility])[address] [place] [address] LACTIC ACID, PLASMAon 2023 LACTATE (MMOL/L) IN SER/PLAS 1.7 mmol/L Normal 0.5-2.2 [facility] Comment on above: Performed By: #### L [id number] ####[facility] ([facility])[address] [place] [address] MAGNESIUMon 04-26-2024 Magnesium [Mass/Vol] 2.1 mg/dL Normal 1.9-2.7 [facility] Comment on above: Performed By: #### L [id number] ####[facility] ([facility])[address] [place] [address] MRSA/MSSA DNA NASALon 2023 MRSA DNA Negative Normal Negative [facility] Comment on above: Order Comment: Testi ng methodology is an automated qualitative in vitro diagnostic test for the directdetection and differentiation of Staphylococcus aureus (SA) DNA and methicillin-resistant Staphylococcus aureus (MRSA) DNA from nasal swabs in patients at risk for nasal colonization. The test utilizes real-time polymerase chain reaction (PCR) for the amplification of MRSA/SA DNA and fluorogenic target-specific hybridization probes for the detection of the amplified DNA. A negative result does not preclude nasal colonization. Performed By: #### L [id number] ####[facility] ([facility])[address] [place] [address] MSSA DNA Negative Normal Negative [facility] Comment on above: Order Comment: Testi ng methodology is an automated qualitative in vitro diagnostic test for the directdetection and differentiation of Staphylococcus aureus (SA) DNA and methicillin-resistant Staphylococcus aureus (MRSA) DNA from nasal swabs in patients at risk for nasal colonization. The test utilizes real-time polymerase chain reaction (PCR) for the amplification of MRSA/SA DNA and fluorogenic target-specific hybridization probes for the detection of the amplified DNA. A negative result does not preclude nasal colonization. Performed By: #### L [id number] ####[facility] ([facility])[address] [place] [address] PHOSPHORUSon 04-26-2024 Magnesium [Mass/Vol] 2.4 mg/dL Low 2.5-5.0 [facility] Comment on above: Performed By: #### L [id number] ####[facility] ([facility])[address] [place] [address] POCT GLUCOSE METER UNSOLICIT ED RESULTSon 04-26-2024 Glucose [Mass/Vol] 127 mg/dL High 70-105 [facility] Comment on above: Order Comment: Waive d Testing in the ED is performed under the ED CLIA certificate #[id number]. Result Comment: [email or web address] Performed By: #### L [id number] ####[facility] ([facility])[address] [facility] [address] Glucose [Mass/Vol] 221 mg/dL High 70-105 [facility] Comment on above: Order Comment: Waive d Testing in the ED is performed under the ED CLIA certificate #[id number]. Result Comment: owit tko Performed By: #### L [id number] ####[facility] ([facility])[address] [place] [address] Glucose [Mass/Vol] 438 mg/dL High 70-105 [facility] Comment on above: Order Comment: Waive d Testing in the ED is performed under the ED CLIA certificate #[id number]. Result Comment: [email or web address] tko Performed By: #### L [id number] ####[facility] ([facility])[address] [place] [address] Glucose [Mass/Vol] 474 mg/dL High 70-105 [facility] Comment on above: Order Comment: Waive d Testing in the ED is performed under the ED CLIA certificate #[id number]. Result Comment: owit tko Performed By: #### L [id number] ####[facility] ([facility])[address] [place] [address] Glucose [Mass/Vol] 480 mg/dL High 70-105 [facility] Comment on above: Order Comment: Waive d Testing in the ED is performed under the ED CLIA certificate #[id number]. Result Comment: [email or web address] Performed By: #### L [id number] ####[facility] ([facility])[address] [place] [address] Glucose [Mass/Vol] 443 mg/dL High 70-105 [facility] Comment on above: Order Comment: Waive d Testing in the ED is performed under the ED CLIA certificate #[id number]. Result Comment: owit tko Performed By: #### L [id number] ####[facility] ([facility])[address] [place] [address] 30on 04-25-[address] [facility] [address] [facility] BASIC METABOLIC PANELon 04-06 Anion gap [Moles/Vol] 9 mmol/L Normal 7-20 [facility] Comment on above: Performed By: #### L [id number] ####[facility] ([facility])[address] [place] [address] Calcium [Mass/Vol] 8.7 mg/dL Normal 8.6-10.3 [facility] Comment on above: Performed By: #### L [id number] ####[facility] ([facility])[address] [place] [address] Chloride [Moles/Vol] 102 mmol/L Normal 98-107 [facility] Comment on above: Performed By: #### L [id number] ####[facility] [place] [address] CO2 [Moles/Vol] 29 mmol/L Normal 21-31 [facility] Comment on above: Performed By: #### L [id number] ####[facility] ([facility])[address] [place] [address] Creatinine [Mass/Vol] 0.63 mg/dL Normal 0.60-1.20 [facility] Comment on above: Performed By: #### L [id number] ####[facility] ([facility])[address] [place] [address] GLOMERULAR FILTRATION RATE ML/MIN/1.73 SQ M.PREDICTED 99.0 mL/min/1.73m*2 Normal >60.0 [facility] Comment on above: Result Comment: [facility]???s estimated glomerular filtration rate (eGFR) will no longer include consideration of race in its calculation. The National Kidney Foundation???s eGFR Task Force developed new recommendations for the estimation of the glomerular filtration rate in the [place] They recommend immediate implementation of the new equation refit without the race variable in all laboratories because the calculation does not include race. In addition to not including race in the calculation and reporting, it included diversity in its development, and has acceptable performance characteristics and potential consequences that do not disproportionately affect any one group of individuals. Performed By: #### L [id number] ####[facility] [place] [address] Glucose [Mass/Vol] 175 mg/dL High 70-100 [facility] Comment on above: Performed By: #### L [id number] ####[facility] (BE[facility])[address] [place] [address] Potassium [Moles/Vol] 3.9 mmol/L Normal 3.5-5.1 [facility] Comment on above: Performed By: #### L [id number] ####[facility] (BE[facility])[address] [place] [address] Sodium [Moles/Vol] 136 mmol/L Normal 136-145 [facility] Comment on above: Performed By: #### L [id number] ####[facility] ([facility])[address] [place] [address] Urea nitrogen [Mass/Vol] 15 mg/dL Normal 7-25 [facility] Comment on above: Performed By: #### L [id number] ####[facility] ([facility])[address] [place] [address] UREA NITROGEN/CREATININE (MASS RATIO) IN SER/PLAS 23.[address] [facility] Comment on above: Performed By: #### L [id number] ####[facility] [place] [address] CALCIUM, IONIZEDon CALCIUM IONIZED (MMOL/L) IN BLOOD 1.23 mmol/L Normal 1.15-1.33 [facility] Comment on above: Performed By: #### L [id number] ####[facility] [id number] [place] [address] [place] CBCon 04-25-2024 Erythrocyte distribution width (RBC) [Ratio] 14.5 % Normal 11.5-15.0 [facility] Comment on above: Performed By: #### L [id number] ####[facility] (BE[facility])[address] [place] [address] ERYTHROCYTE MEAN CORPUSCULAR HEMOGLOBIN CONCENTRATION (G/DL) BY AUTOMATED 33.5 g/dL Normal 32.0-35.0 [facility] Comment on above: Performed By: #### L [id number] ####[facility] ([facility])[address] [place] [address] Hematocrit (Bld) [Volume fraction] 31.0 % Low 36.0-48.0 [facility] Comment on above: Performed By: #### L [id number] ####[facility] [place] [address] Hemoglobin (Bld) [Mass/Vol] 10.4 g/dL Low 12.0-15.0 [facility] Comment on above: Performed By: #### L [id number] ####[facility] ([facility])[address] [place] [address] MCH (RBC) [Entitic mass] 30.1 pg Normal 27.0-33.0 [facility] Comment on above: Performed By: #### L [id number] ####[facility] ([facility])[address] [place] [address] MCV (RBC) [Entitic vol] 89.9 fL Normal 82.0-98.0 [facility] Comment on above: Performed By: #### L [id number] ####[facility] ([facility])[address] [place] [address] PLATELETS (10*3/UL) IN BLOOD AUTOMATED COUNT 256 10*3/uL Normal 150-400 [facility] Comment on above: Performed By: #### L [id number] ####[facility] ([facility])[address] [place] [address] RBC (Bld) [#/Vol] 3.45 10*6/uL Low 3.80-5.00 [facility] Comment on above: Performed By: #### L [id number] ####[facility] ([facility])[address] [place] [address] WBC (Bld) [#/Vol] 9.27 10*3/uL Normal 4.00-10.60 [facility] Comment on above: Performed By: #### L [id number] ####[facility] ([facility])[address] [place] [address] MAGNESIUMon 04-25-2024 Magnesium [Mass/Vol] 1.5 mg/dL Low 1.9-2.7 [facility] Comment on above: Performed By: #### L [id number] ####[facility] ([facility])[address] [place] [address] PHOSPHORUSon 04-25-2024 Magnesium [Mass/Vol] 2.0 mg/dL Low 2.5-5.0 [facility] Comment on above: Performed By: #### L [id number] ####[facility] ([facility])[address] [place] [address] Magnesium [Mass/Vol] 1.6 mg/dL Low 2.5-5.0 [facility] Comment on above: Performed By: #### L [id number] ####[facility] ([facility])[address] [place] [address] POCT GLUCOSE METER UNSOLICIT ED RESULTSon 04-25-2024 Glucose [Mass/Vol] 253 mg/dL High 70-105 [facility] Comment on above: Order Comment: Waive d Testing in the ED is performed under the ED CLIA certificate #[id number]. Result Comment: [email or web address] Performed By: #### L [id number] ####[facility] ([facility])[address] [place] [address] Glucose [Mass/Vol] 283 mg/dL High 70-105 [facility] Comment on above: Order Comment: Waive d Testing in the ED is performed under the ED CLIA certificate #[id number]. Result Comment: [email or web address] Performed By: #### L [id number] ####[facility] ([facility])[address] [place] [address] Glucose [Mass/Vol] 379 mg/dL High 70-105 [facility] Comment on above: Order Comment: Waive d Testing in the ED is performed under the ED CLIA certificate #[id number]. Result Comment: [email or web address] Performed By: #### L [id number] ####[facility] [place] [address] Glucose [Mass/Vol] 334 mg/dL High 70-105 [facility] Comment on above: Order Comment: Waive d Testing in the ED is performed under the ED CLIA certificate #[id number]. Result Comment: elac [email or web address] Performed By: #### L [id number] ####[facility] ([facility])[address] [place] [address] Glucose [Mass/Vol] 197 mg/dL High 70-105 [facility] Comment on above: Order Comment: Waive d Testing in the ED is performed under the ED CLIA certificate #[id number]. Result Comment: [email or web address] Performed By: #### L [id number] ####[facility] (BE[facility])[address] [place] [address] 30on 04-24-[address] [facility] BASIC METABOLIC PANELon 04-06 Anion gap [Moles/Vol] 10 mmol/L Normal 7-20 [facility] Comment on above: Performed By: #### L [id number] ####[facility] (BE[facility])[address] [place] [address] Calcium [Mass/Vol] 8.1 mg/dL Low 8.6-10.3 [facility] Comment on above: Performed By: #### L [id number] ####[facility] (BE[facility])[address] [place] [address] Chloride [Moles/Vol] 104 mmol/L Normal 98-107 [facility] Comment on above: Performed By: #### L [id number] ####[facility] ([facility])[address] [place] [address] CO2 [Moles/Vol] 27 mmol/L Normal 21-31 [facility] Comment on above: Performed By: #### L [id number] ####[facility] (BE[facility])[address] [place] [address] Creatinine [Mass/Vol] 0.74 mg/dL Normal 0.60-1.20 [facility] Comment on above: Performed By: #### L [id number] ####[facility] (BEAKER)[address] [place] [address] GLOMERULAR FILTRATION RATE ML/MIN/1.73 SQ M.PREDICTED 90.3 mL/min/1.73m*2 Normal >60.0 [facility] Comment on above: Result Comment: [facility]???s estimated glomerular filtration rate (eGFR) will no longer include consideration of race in its calculation. The National Kidney Foundation???s eGFR Task Force developed new recommendations for the estimation of the glomerular filtration rate in the [place] They recommend immediate implementation of the new equation refit without the race variable in all laboratories because the calculation does not include race. In addition to not including race in the calculation and reporting, it included diversity in its development, and has acceptable performance characteristics and potential consequences that do not disproportionately affect any one group of individuals. Performed By: #### L [id number] ####[facility] ([facility])[address] [place] [address] Glucose [Mass/Vol] 189 mg/dL High 70-100 [facility] Comment on above: Performed By: #### L [id number] ####[facility] ([facility])[address] [place] [address] Potassium [Moles/Vol] 4.2 mmol/L Normal 3.5-5.1 [facility] Comment on above: Performed By: #### L [id number] ####[facility] ([facility])[address] [place] [address] Sodium [Moles/Vol] 137 mmol/L Normal 136-145 [facility] Comment on above: Performed By: #### L [id number] ####[facility] [place] [address] Urea nitrogen [Mass/Vol] 19 mg/dL Normal 7-25 [facility] Comment on above: Performed By: #### L [id number] ####[facility] (BEAKER)[address] [place] [address] UREA NITROGEN/CREATININE (MASS RATIO) IN SER/PLAS 25.[address] [facility] Comment on above: Performed By: #### L [id number] ####[facility] (BEAKER)[address] [place] [address] CALCIUM, IONIZEDon CALCIUM IONIZED (MMOL/L) IN BLOOD 1.01 mmol/L Low 1.15-1.33 [facility] Comment on above: Performed By: #### L [id number] ####[facility] [id number] [place] [address] [place] CBCon 04-24-2024 Erythrocyte distribution width (RBC) [Ratio] 14.3 % Normal 11.5-15.0 [facility] Comment on above: Performed By: #### L [id number] ####[facility] ([facility])[address] [place] [address] ERYTHROCYTE MEAN CORPUSCULAR HEMOGLOBIN CONCENTRATION (G/DL) BY AUTOMATED 32.3 g/dL Normal 32.0-35.0 [facility] Comment on above: Performed By: #### L [id number] ####[facility] ([facility])[address] [place] [address] Hematocrit (Bld) [Volume fraction] 31.6 % Low 36.0-48.0 [facility] Comment on above: Performed By: #### L [id number] ####[facility] ([facility])[address] [place] [address] Hemoglobin (Bld) [Mass/Vol] 10.2 g/dL Low 12.0-15.0 [facility] Comment on above: Performed By: #### L [id number] ####[facility] [place] [address] MCH (RBC) [Entitic mass] 30.3 pg Normal 27.0-33.0 [facility] Comment on above: Performed By: #### L [id number] ####[facility] (BEAKER)[address] [place] [address] MCV (RBC) [Entitic vol] 93.8 fL Normal 82.0-98.0 [facility] Comment on above: Performed By: #### L [id number] ####[facility] ([facility])[address] [place] [address] PLATELETS (10*3/UL) IN BLOOD AUTOMATED COUNT 242 10*3/uL Normal 150-400 [facility] Comment on above: Performed By: #### L [id number] ####[facility] ([facility])[address] [place] [address] RBC (Bld) [#/Vol] 3.37 10*6/uL Low 3.80-5.00 [facility] Comment on above: Performed By: #### L [id number] ####[facility] ([facility])[address] [place] [address] WBC (Bld) [#/Vol] 8.93 10*3/uL Normal 4.00-10.60 [facility] Comment on above: Performed By: #### L [id number] ####[facility] ([facility])[address] [place] [address] MAGNESIUMon 04-24-2024 Magnesium [Mass/Vol] 1.7 mg/dL Low 1.9-2.7 [facility] Comment on above: Performed By: #### L [id number] ####[facility] ([facility])[address] [place] [address] POCT GLUCOSE METER UNSOLICIT ED RESULTSon 04-24-2024 Glucose [Mass/Vol] 269 mg/dL High 70-105 [facility] Comment on above: Order Comment: Waive d Testing in the ED is performed under the ED CLIA certificate #[id number]. Result Comment: [email or web address] Performed By: #### L [id number] ####[facility] ([facility])[address] [place] [address] Glucose [Mass/Vol] 361 mg/dL High 70-105 [facility] Comment on above: Order Comment: Waive d Testing in the ED is performed under the ED CLIA certificate #[id number]. Result Comment: elac umsky Performed By: #### L [id number] ####[facility] ([facility]AKER)[address] [place] [address] Glucose [Mass/Vol] 185 mg/dL High 70-105 [facility] Comment on above: Order Comment: Waive d Testing in the ED is performed under the ED CLIA certificate #[id number]. Result Comment: elac umsky Performed By: #### L [id number] ####[facility] ([facility])[address] [place] [address] Glucose [Mass/Vol] 209 mg/dL High 70-105 [facility] Comment on above: Order Comment: Waive d Testing in the ED is performed under the ED CLIA certificate #[id number]. Result Comment: elac umsky Performed By: #### L [id number] ####[facility] ([facility])[address] [place] [address] Glucose [Mass/Vol] 199 mg/dL High 70-105 [facility] Comment on above: Order Comment: Waive d Testing in the ED is performed under the ED CLIA certificate #[id number]. Result Comment: [email or web address] Performed By: #### L [id number] ####[facility] ([facility])[address] [place] [address] Glucose [Mass/Vol] 304 mg/dL High 70-105 [facility] Comment on above: Order Comment: Waive d Testing in the ED is performed under the ED CLIA certificate #[id number]. Result Comment: [facility] eub Performed By: #### L [id number] ####[facility] [place] [address] BASIC METABOLIC PANELon 04-05 Anion gap [Moles/Vol] 9 mmol/L Normal 7-20 [facility] Comment on above: Performed By: #### L [id number] ####[facility] ([facility])[address] [place] [address] Calcium [Mass/Vol] 8.4 mg/dL Low 8.6-10.3 [facility] Comment on above: Performed By: #### L [id number] ####[facility] ([facility] [place] [address] Chloride [Moles/Vol] 106 mmol/L Normal 98-107 [facility] Comment on above: Performed By: #### L [id number] ####[facility] ([facility] [place] [address] CO2 [Moles/Vol] 25 mmol/L Normal 21-31 [facility] Comment on above: Performed By: #### L [id number] ####[facility] ([facility])[address] [place] [address] Creatinine [Mass/Vol] 0.78 mg/dL Normal 0.60-1.20 [facility] Comment on above: Performed By: #### L [id number] ####[facility] ([facility])[address] [place] [address] GLOMERULAR FILTRATION RATE ML/MIN/1.73 SQ M.PREDICTED 84.8 mL/min/1.73m*2 Normal >60.0 [facility] Comment on above: Result Comment: [facility]???s estimated glomerular filtration rate (eGFR) will no longer include consideration of race in its calculation. The National Kidney Foundation???s eGFR Task Force developed new recommendations for the estimation of the glomerular filtration rate in the [place] They recommend immediate implementation of the new equation refit without the race variable in all laboratories because the calculation does not include race. In addition to not including race in the calculation and reporting, it included diversity in its development, and has acceptable performance characteristics and potential consequences that do not disproportionately affect any one group of individuals. Performed By: #### L [id number] ####[facility] ([facility] [place] [address] Glucose [Mass/Vol] 107 mg/dL High 70-100 [facility] Comment on above: Performed By: #### L [id number] ####[facility] ([facility] [place] [address] Potassium [Moles/Vol] 3.7 mmol/L Normal 3.5-5.1 [facility] Comment on above: Performed By: #### L [id number] ####[facility] ([facility] [place] [address] Sodium [Moles/Vol] 136 mmol/L Normal 136-145 [facility] Comment on above: Performed By: #### L [id number] ####[facility] ([facility])[address] [place] [address] Urea nitrogen [Mass/Vol] 21 mg/dL Normal 7-25 [facility] Comment on above: Performed By: #### L [id number] ####[facility] ([facility])[address] [place] [address] UREA NITROGEN/CREATININE (MASS RATIO) IN SER/PLAS 26.[address] [facility] Comment on above: Performed By: #### L [id number] ####[facility] ([facility])[address] [place] [address] Anion gap [Moles/Vol] 10 mmol/L Normal 7-20 [facility] Comment on above: Performed By: #### L [id number] ####[facility] ([facility] [place] [address] Calcium [Mass/Vol] 8.7 mg/dL Normal 8.6-10.3 [facility] Comment on above: Performed By: #### L [id number] ####[facility] ([facility] [place] [address] Chloride [Moles/Vol] 106 mmol/L Normal 98-107 [facility] Comment on above: Performed By: #### L [id number] ####[facility] (BEAKER)[address] [place] [address] CO2 [Moles/Vol] 26 mmol/L Normal 21-31 [facility] Comment on above: Performed By: #### L [id number] ####[facility] (BEAKER)[address] [place] [address] Creatinine [Mass/Vol] 0.87 mg/dL Normal 0.60-1.20 [facility] Comment on above: Performed By: #### L [id number] ####[facility] ([facility])[address] [place] [address] GLOMERULAR FILTRATION RATE ML/MIN/1.73 SQ M.PREDICTED 74.4 mL/min/1.73m*2 Normal >60.0 [facility] Comment on above: Result Comment: [facility]???s estimated glomerular filtration rate (eGFR) will no longer include consideration of race in its calculation. The National Kidney Foundation???s eGFR Task Force developed new recommendations for the estimation of the glomerular filtration rate in the [place] They recommend immediate implementation of the new equation refit without the race variable in all laboratories because the calculation does not include race. In addition to not including race in the calculation and reporting, it included diversity in its development, and has acceptable performance characteristics and potential consequences that do not disproportionately affect any one group of individuals. Performed By: #### L [id number] ####[facility] ([facility])[address] [place] [address] Glucose [Mass/Vol] 175 mg/dL High 70-100 [facility] Comment on above: Performed By: #### L [id number] ####[facility] ([facility])[address] [place] [address] Potassium [Moles/Vol] 4.4 mmol/L Normal 3.5-5.1 [facility] Comment on above: Performed By: #### L [id number] ####[facility] ([facility])[address] [place] [address] Sodium [Moles/Vol] 138 mmol/L Normal 136-145 [facility] Comment on above: Performed By: #### L [id number] ####[facility] ([facility])[address] [place] [address] Urea nitrogen [Mass/Vol] 24 mg/dL Normal 7-25 [facility] Comment on above: Performed By: #### L [id number] ####[facility] ([facility])[address] [place] [address] UREA NITROGEN/CREATININE (MASS RATIO) IN SER/PLAS 27.[address] [facility] Comment on above: Performed By: #### L [id number] ####[facility] ([facility])[address] [place] [place] [address] CBCon 04-23-2024 Erythrocyte distribution width (RBC) [Ratio] 14.0 % Normal 11.5-15.0 [facility] Comment on above: Performed By: #### L [id number] ####[facility] ([facility])[address] [place] [address] ERYTHROCYTE MEAN CORPUSCULAR HEMOGLOBIN CONCENTRATION (G/DL) BY AUTOMATED 29.8 g/dL Low 32.0-35.0 [facility] Comment on above: Performed By: #### L [id number] ####[facility] ([facility])[address] [place] [address] Hematocrit (Bld) [Volume fraction] 22.8 % Low 36.0-48.0 [facility] Comment on above: Performed By: #### L [id number] ####[facility] ([facility])[address] [place] [address] Hemoglobin (Bld) [Mass/Vol] 6.8 g/dL Low 12.0-15.0 [facility] Comment on above: Performed By: #### L [id number] ####[facility] ([facility])[address] [place] [address] MCH (RBC) [Entitic mass] 30.0 pg Normal 27.0-33.0 [facility] Comment on above: Performed By: #### L [id number] ####[facility] ([facility])[address] [place] [address] MCV (RBC) [Entitic vol] 100.4 fL High 82.0-98.0 [facility] Comment on above: Performed By: #### L [id number] ####[facility] [place] [address] PLATELETS (10*3/UL) IN BLOOD AUTOMATED COUNT 229 10*3/uL Normal 150-400 [facility] Comment on above: Performed By: #### L [id number] ####[facility] (BEAKER)[address] [address] RBC (Bld) [#/Vol] 2.27 10*6/uL Low 3.80-5.00 [facility] Comment on above: Performed By: #### L [id number] ####[facility] ([facility] [address] WBC (Bld) [#/Vol] 8.76 10*3/uL Normal 4.00-10.60 [facility] Comment on above: Performed By: #### L [id number] ####[facility] ([facility] [address] Erythrocyte distribution width (RBC) [Ratio] 13.8 % Normal 11.5-15.0 [facility] Comment on above: Performed By: #### L [id number] ####[facility] ([facility] [address] ERYTHROCYTE MEAN CORPUSCULAR HEMOGLOBIN CONCENTRATION (G/DL) BY AUTOMATED 32.5 g/dL Normal 32.0-35.0 [facility] Comment on above: Performed By: #### L [id number] ####[facility] (BEAKER)[address] [address] Hematocrit (Bld) [Volume fraction] 25.2 % Low 36.0-48.0 [facility] Comment on above: Performed By: #### L [id number] ####[facility] (BEAKER)[address] [place], [place] [address] Hemoglobin (Bld) [Mass/Vol] 8.2 g/dL Low 12.0-15.0 [facility] Comment on above: Performed By: #### L [id number] ####[facility] (BEAKER)[address] [address] MCH (RBC) [Entitic mass] 30.5 pg Normal 27.0-33.0 [facility] Comment on above: Performed By: #### L [id number] ####[facility] ([facility])[address] [place] [address] MCV (RBC) [Entitic vol] 93.7 fL Normal 82.0-98.0 [facility] Comment on above: Performed By: #### L [id number] ####[facility] ([facility])[address] [place] [address] PLATELETS (10*3/UL) IN BLOOD AUTOMATED COUNT 268 10*3/uL Normal 150-400 [facility] Comment on above: Performed By: #### L [id number] ####[facility] ([facility])[place] [address] RBC (Bld) [#/Vol] 2.69 10*6/uL Low 3.80-5.00 [facility] Comment on above: Performed By: #### L [id number] ####[facility] ([facility])[address] [place] [address] WBC (Bld) [#/Vol] 9.30 10*3/uL Normal 4.00-10.60 [facility] Comment on above: Performed By: #### L [id number] ####[facility] ([facility])[address] [place] [address] MAGNESIUMon 04-23-2024 Magnesium [Mass/Vol] 1.4 mg/dL Low 1.9-2.7 [facility] Comment on above: Performed By: #### L [id number] ####[facility] ([facility])[address] [place] [address] NURSNOTEon 04-23-[address] [facility] PHOSPHORUSon 04-23-2024 Magnesium [Mass/Vol] 3.2 mg/dL Normal 2.5-5.0 [facility] Comment on above: Performed By: #### L [id number] ####[facility] ([facility]ER)[address] [place] [address] POCT GLUCOSE METER UNSOLICIT ED RESULTSon 04-23-2024 Glucose [Mass/Vol] 301 mg/dL High 70-105 [facility] Comment on above: Order Comment: Waive d Testing in the ED is performed under the ED CLIA certificate #[id number]. Result Comment: [email or web address] Performed By: #### L [id number] ####[facility] ([facility])[address] [place] [address] Glucose [Mass/Vol] 138 mg/dL High 70-105 [facility] Comment on above: Order Comment: Waive d Testing in the ED is performed under the ED CLIA certificate #[id number]. Result Comment: [facility] eub Performed By: #### L [id number] ####[facility] ([facility])[address] [place] [address] Glucose [Mass/Vol] 156 mg/dL High 70-105 [facility] Comment on above: Order Comment: Waive d Testing in the ED is performed under the ED CLIA certificate #[id number]. Result Comment: [email or web address] Performed By: #### L [id number] ####[facility] ([facility])[address] [place] [address] Glucose [Mass/Vol] 198 mg/dL High 70-105 [facility] Comment on above: Order Comment: Waive d Testing in the ED is performed under the ED CLIA certificate #[id number]. Result Comment: [email or web address] Performed By: #### L [id number] ####[facility] ([facility]ER)[address] [place] [address] Glucose [Mass/Vol] 252 mg/dL High 70-105 [facility] Comment on above: Order Comment: Waive d Testing in the ED is performed under the ED CLIA certificate #[id number]. Result Comment: [email or web address] Performed By: #### L [id number] ####[facility] ([facility])[address] [place] [address] Glucose [Mass/Vol] 182 mg/dL High 70-105 [facility] Comment on above: Order Comment: Waive d Testing in the ED is performed under the ED CLIA certificate #[id number]. Result Comment: [email or web address] Performed By: #### L [id number] ####[facility] (BEAKER)[address] [place] [address] Glucose [Mass/Vol] 189 mg/dL High 70-105 [facility] Comment on above: Order Comment: Waive d Testing in the ED is performed under the ED CLIA certificate #[id number]. Result Comment: [email or web address] Performed By: #### L [id number] ####[facility] [place] [address] [id number] 04-22-[id number] [facility] ANESon 04-22-[address] [facility] ANES Normal [facility] Anesthesiaon 04-22-2024 Anesthesia [id number] Monica Acosta 1960 F Date Provider Department [place] 04/22/2024 CHRISTIANE AVENDANO [facility] OR [facility] C No family history on file Normal [facility] BASIC METABOLIC PANELon 04-05 Anion gap [Moles/Vol] 14 mmol/L Normal 7-20 [facility] Comment on above: Performed By: #### L [id number] ####[facility] (BEAKER)[address] [place] [address] Calcium [Mass/Vol] 8.6 mg/dL Normal 8.6-10.3 [facility] Comment on above: Performed By: #### L [id number] ####[facility] (BEAKER)[address] [place] [address] Chloride [Moles/Vol] 102 mmol/L Normal 98-107 [facility] Comment on above: Performed By: #### L [id number] ####[facility] (BE[facility]ER)[address] [place] [address] CO2 [Moles/Vol] 23 mmol/L Normal 21-31 [facility] Comment on above: Performed By: #### L [id number] ####[facility] ([facility])[address] [place] [address] Creatinine [Mass/Vol] 0.81 mg/dL Normal 0.60-1.20 [facility] Comment on above: Performed By: #### L [id number] ####[facility] ([facility])[address] [place] [address] GLOMERULAR FILTRATION RATE ML/MIN/1.73 SQ M.PREDICTED 81.0 mL/min/1.73m*2 Normal >60.0 [facility] Comment on above: Result Comment: [facility]???s estimated glomerular filtration rate (eGFR) will no longer include consideration of race in its calculation. The National Kidney Foundation???s eGFR Task Force developed new recommendations for the estimation of the glomerular filtration rate in the [place] They recommend immediate implementation of the new equation refit without the race variable in all laboratories because the calculation does not include race. In addition to not including race in the calculation and reporting, it included diversity in its development, and has acceptable performance characteristics and potential consequences that do not disproportionately affect any one group of individuals. Performed By: #### L [id number] ####[facility] ([facility])[address] [place] [address] Glucose [Mass/Vol] 342 mg/dL High 70-100 [facility] Comment on above: Performed By: #### L [id number] ####[facility] [place] [address] Potassium [Moles/Vol] 4.5 mmol/L Normal 3.5-5.1 [facility] Comment on above: Performed By: #### L [id number] ####[facility] [place] [address] Sodium [Moles/Vol] 134 mmol/L Low 136-145 [facility] Comment on above: Performed By: #### L [id number] ####[facility] (BE[facility]ER)[address] [place] [address] Urea nitrogen [Mass/Vol] 28 mg/dL High 7- [facility] Comment on above: Performed By: #### L [id number] ####[facility] [place] [address] UREA NITROGEN/CREATININE (MASS RATIO) IN SER/PLAS 34.[address] [facility] Comment on above: Performed By: #### L [id number] ####[facility] [place] [address] CBC WITH AUTO DIFFERENTIALon 04-22-2024 Basophils (Bld) [#/Vol] 0.06 10*3/uL Normal 0.00-0.20 [facility] Comment on above: Performed By: #### L [id number] ####[facility] [place] [address] Basophils/100 WBC (Bld) 0.5 % Normal 0.0-1.0 [facility] Comment on above: Performed By: #### L [id number] ####[facility] [place] [address] Eosinophils (Bld) [#/Vol] 0.22 10*3/uL Normal 0.00-0.50 [facility] Comment on above: Performed By: #### L [id number] ####[facility] [place] [address] Eosinophils/100 WBC (Bld) 1.9 % Normal 0.0-6.0 [facility] Comment on above: Performed By: #### L [id number] ####[facility] [place] [address] Erythrocyte distribution width (RBC) [Ratio] 13.5 % Normal 11.5-15.0 [facility] Comment on above: Performed By: #### L [id number] ####[facility] (BEAKER)[address] [place] [address] ERYTHROCYTE MEAN CORPUSCULAR HEMOGLOBIN CONCENTRATION (G/DL) BY AUTOMATED 31.4 g/dL Low 32.0-35.0 [facility] Comment on above: Performed By: #### L [id number] ####[facility] (BE[facility]ER)[address] [place] [address] Hematocrit (Bld) [Volume fraction] 36.0 % Normal 36.0-48.0 [facility] Comment on above: Performed By: #### L [id number] ####[facility] [facility] ([facility] [place] [address] Hemoglobin (Bld) [Mass/Vol] 11.3 g/dL Low 12.0-15.0 [facility] Comment on above: Performed By: #### L [id number] ####[facility] (BEAKER)[address] [place] [address] Immature granulocytes (Bld) [#/Vol] 0.05 10*3/uL Normal 0.00-0.20 [facility] Comment on above: Performed By: #### L [id number] ####[facility] (BEAK[facility])[address] [place] [address] Immature granulocytes/100 WBC (Bld) 0.4 % Normal 0.0-1.0 [facility] Comment on above: Performed By: #### L [id number] ####[facility] (BEAK[facility])[address] [place] [address] Lymphocytes (Bld) [#/Vol] 0.93 10*3/uL Low 1.20-4.00 [facility] Comment on above: Performed By: #### L [id number] ####[facility] (BEAKER)[address] [place] [address] Lymphocytes/100 WBC (Bld) 8.1 % Low 20.0-45.0 [facility] Comment on above: Performed By: #### L [id number] ####[facility] (BEAKER)[address] [place] [address] MCH (RBC) [Entitic mass] 30.3 pg Normal 27.0-33.0 [facility] Comment on above: Performed By: #### L [id number] ####[facility] (BEAKER)[address] [place] [address] MCV (RBC) [Entitic vol] 96.5 fL Normal 82.0-98.0 [facility] Comment on above: Performed By: #### L [id number] ####[facility] [place] [address] Monocytes (Bld) [#/Vol] 0.89 10*3/uL Normal 0.10-1.00 [facility] Comment on above: Performed By: #### L [id number] ####[facility] [place] [address] Monocytes/100 WBC (Bld) 7.7 % Normal 5.0-12.0 [facility] Comment on above: Performed By: #### L [id number] ####[facility] (BEAK[facility])[address] [place] [address] Neutrophils (Bld) [#/Vol] 9.38 10*3/uL High 1.60-7.60 [facility] Comment on above: Performed By: #### L [id number] ####[facility] (BE[facility])[address] [place] [address] Neutrophils/100 WBC (Bld) 81.4 % High 40.0-72.0 [facility] Comment on above: Performed By: #### L [id number] ####[facility] (BEAKER)[address] [place] [address] NRBC (PER 100 WBCS) BY AUTOMATED COUNT 0.0 % Normal 0 [facility] Comment on above: Performed By: #### L [id number] ####[facility] (BEAKER)[address] [place] [address] PLATELETS (10*3/UL) IN BLOOD AUTOMATED COUNT 325 10*3/uL Normal 150-400 [facility] Comment on above: Performed By: #### L [id number] ####[facility] [place] [address] RBC (Bld) [#/Vol] 3.73 10*6/uL Low 3.80-5.00 [facility] Comment on above: Performed By: #### L [id number] ####[facility] ([facility])[address] [place] [address] WBC (Bld) [#/Vol] 11.53 10*3/uL High 4.00-10.60 [facility] Comment on above: Performed By: #### L [id number] ####[facility] ([facility])[address] [place] [address] EDPROVon 04-22-2024 EDPR[address] Interpret[address] Code [facility] HPon 04-22-2024 HP H&P reviewed. The patient was examined and there are no changes to the H&P. Normal [facility] MAGNESIUMon 04-22-2024 Magnesium [Mass/Vol] 1.5 mg/dL Low 1.9-2.7 [facility] Comment on above: Performed By: #### L [id number] ####[facility] ([facility])[address] [place] [address] MRSA/MSSA DNA NASALon 2023 MRSA DNA Negative Normal Negative [facility] Comment on above: Order Comment: Testi ng methodology is an automated qualitative in vitro diagnostic test for the directdetection and differentiation of Staphylococcus aureus (SA) DNA and methicillin-resistant Staphylococcus aureus (MRSA) DNA from nasal swabs in patients at risk for nasal colonization. The test utilizes real-time polymerase chain reaction (PCR) for the amplification of MRSA/SA DNA and fluorogenic target-specific hybridization probes for the detection of the amplified DNA. A negative result does not preclude nasal colonization. Performed By: #### L [id number] ####[facility] ([facility])[address] [place] [address] MSSA DNA Negative Normal Negative [facility] Comment on above: Order Comment: Testi ng methodology is an automated qualitative in vitro diagnostic test for the directdetection and differentiation of Staphylococcus aureus (SA) DNA and methicillin-resistant Staphylococcus aureus (MRSA) DNA from nasal swabs in patients at risk for nasal colonization. The test utilizes real-time polymerase chain reaction (PCR) for the amplification of MRSA/SA DNA and fluorogenic target-specific hybridization probes for the detection of the amplified DNA. A negative result does not preclude nasal colonization. Performed By: #### L [id number] ####[facility] ([facility])[address] [place] [address] NURSNOTEon 04-22-2024 NURSNOTE This greeting card writer attempte d to get information about the insulin pump that is placed, patient is unable to give or sign the agreement at this time. Will try again at a later time. Normal [facility] NURSNOTE Normal [facility] NURSNOTE Dressing: Xeroflo, fluffs, kerlix, carlos wrap to bilateral legs Normal [facility] OPNOTEon 04-22-[address] [facility] PHOSPHORUSon 04-22-2024 Magnesium [Mass/Vol] 4.2 mg/dL Normal 2.5-5.0 [facility] Comment on above: Performed By: #### L [id number] ####[facility] ([facility])[address] [place] [address] POCT GLUCOSE METER UNSOLICIT ED RESULTSon 04-22-2024 Glucose [Mass/Vol] 187 mg/dL High 70-105 [facility] Comment on above: Order Comment: Waive d Testing in the ED is performed under the ED CLIA certificate #[id number]. Result Comment: [email or web address] [email or web address] Performed By: #### L [id number] ####[facility] ([facility])[address] [place] [address] Glucose [Mass/Vol] 256 mg/dL High 70-105 [facility] Comment on above: Order Comment: Waive d Testing in the ED is performed under the ED CLIA certificate #[id number]. Result Comment: [email or web address] Performed By: #### L [id number] ####[facility] ([facility]AKER)[address] [place] [address] Glucose [Mass/Vol] 247 mg/dL High 70-105 [facility] Comment on above: Order Comment: Waive d Testing in the ED is performed under the ED CLIA certificate #[id number]. Result Comment: [email or web address] Performed By: #### L [id number] ####[facility] ([facility])[address] [place] [address] Glucose [Mass/Vol] 213 mg/dL High 70-105 [facility] Comment on above: Order Comment: Waive d Testing in the ED is performed under the ED CLIA certificate #[id number]. Result Comment: [email or web address] Performed By: #### L [id number] ####[facility] ([facility])[address] [place] [address] Glucose [Mass/Vol] 247 mg/dL High 70-105 [facility] Comment on above: Order Comment: Waive d Testing in the ED is performed under the ED CLIA certificate #[id number]. Result Comment: [email or web address] hl Performed By: #### L [id number] ####[facility] ([facility])[address] [place] [address] Glucose [Mass/Vol] 316 mg/dL High 70-105 [facility] Comment on above: Order Comment: Waive d Testing in the ED is performed under the ED CLIA certificate #[id number]. Result Comment: czyd orc Performed By: #### L [id number] ####[facility] (BEAKER)[address] [place] [address] Glucose [Mass/Vol] 343 mg/dL High 70-105 [facility] Comment on above: Order Comment: Waive d Testing in the ED is performed under the ED CLIA certificate #[id number]. Result Comment: czyd orc Performed By: #### L [id number] ####[facility] [place] [address] Glucose [Mass/Vol] 354 mg/dL High 70-105 [facility] Comment on above: Order Comment: Waive d Testing in the ED is performed under the ED CLIA certificate #[id number]. Result Comment: [email or web address] Performed By: #### L [id number] ####[facility] (BEAKER)[address] [facility] [place] [address] Glucose [Mass/Vol] 358 mg/dL High 70-105 [facility] Comment on above: Order Comment: Waive d Testing in the ED is performed under the ED CLIA certificate #[id number]. Result Comment: [email or web address] Performed By: #### L [id number] ####[facility] [facility] [place] [address] TOXICOLOGY PANEL URINEon AMPHETAMINE+METHAMPHE TAMINE SCREEN (PRESENCE) IN URINE Negative Normal Negative [facility] Comment on above: Performed By: #### L [id number] ####[facility] [facility] [place] [address] BARBITURATES PRESENCE IN URINE BY SCREEN METHOD Negative Normal Negative [facility] Comment on above: Performed By: #### L [id number] ####[facility] (BEAKER)[address] [place] [address] Benzodiazepines Ql (U) Positive Abnormal Negative [facility] Comment on above: Performed By: #### L [id number] ####[facility] [facility] [place] [address] CANNABINOID (PRESENCE) IN URINE BY SCREEN METHOD Negative Normal Negative [facility] Comment on above: Performed By: #### L [id number] ####[facility] (BEAKER)[address] [facility] [place] [address] Cocaine Ql (U) Negative Normal Negative [facility] Comment on above: Performed By: #### L [id number] ####[facility] [place] [address] METHADONE (PRESENCE) IN URINE BY SCREEN METHOD Negative Normal Negative [facility] Comment on above: Performed By: #### L [id number] ####[facility] (BEAKER)[address] [facility] [place] [address] OPIATES (PRESENCE) IN URINE BY SCREEN METHOD Positive Abnormal Negative [facility] Comment on above: Performed By: #### L [id number] ####[facility] (BEAKER)[address] [place] [address] PHENCYCLIDINE PRESENCE IN URINE BY SCREEN METHOD Negative Normal Negative [facility] Comment on above: Performed By: #### L [id number] ####[facility] (BEAKER)[address] [place] [address] Propoxyphene Screen Ql (U) Negative Normal Negative [facility] Comment on above: Performed By: #### L [id number] ####[facility] (BEAKER)[address] [facility] [place] [address] TRICYCLIC ANTIDEPRESSANTS (PRESENCE) IN URINE Positive Abnormal Negative [facility] Comment on above: Performed By: #### L [id number] ####[facility] (BEAKER)[address] [place] [address] URINALYSIS WITH MICROSCOPICo n 04-22-2024 BILIRUBIN, TOTAL PRESENCE IN URINE Negative Normal Negative [facility] Comment on above: Performed By: #### L [id number] ####[facility] (BEAKER)[address] [place] [address] Clarity (U) Clear Normal Clear [facility] Comment on above: Performed By: #### L [id number] ####[facility] (BEAKER)[address] [place] [address] Color (U) Yellow Normal Yellow [facility] Comment on above: Performed By: #### L [id number] ####[facility] (BEAKER)[address] [place] [address] Glucose (U) [Mass/Vol] 50 mg/dL Abnormal Negative [facility] Comment on above: Performed By: #### L [id number] ####[facility] ([facility])[address] [place] [address] HEMOGLOBIN PRESENCE IN URINE Negative Normal Negative [facility] Comment on above: Performed By: #### L [id number] ####[facility] ([facility])[address] [place] [address] Ketones Ql (U) Negative Normal Negative [facility] Comment on above: Performed By: #### L [id number] ####[facility] ([facility])[address] [place] [address] LEUKOCYTE ESTERASE PRESENCE IN URINE BY TEST STRIP Negative Normal Negative [facility] Comment on above: Performed By: #### L [id number] ####[facility] ([facility])[address] [place] [address] MUCUS (#/HPF) IN URINE SEDIMENT Occasional Normal None Seen, Occasional, Few [facility] Comment on above: Performed By: #### L [id number] ####[facility] ([facility])[address] [place] [address] NITRITE PRESENCE IN URINE Negative Normal Negative [facility] Comment on above: Performed By: #### L [id number] ####[facility] ([facility])[address] [place], [place] [address] pH (U) 5.0 [pH] Normal 5.0-8.0 [facility] Comment on above: Performed By: #### L [id number] ####[facility] ([facility])[address] [place] [address] Protein (U) [Mass/Vol] Negative Normal Negative [facility] Comment on above: Performed By: #### L [id number] ####[facility] ([facility])[address] [place] [address] RBC (#/HPF) IN URINE SEDIMENT None Seen Normal None Seen [facility] Comment on above: Performed By: #### L [id number] ####[facility] ([facility])[address] [place], [place] [address] Specific gravity (U) [Rel density] 1.048 High 1.015-1.020 [facility] Comment on above: Performed By: #### L [id number] ####[facility] (BEAKER)[address] [place] [address] SQUAMOUS EPITHELIAL CELLS (#/HPF) IN URINE SEDIMENT Many Abnormal None Seen, Occasional [facility] Comment on above: Performed By: #### L [id number] ####[facility] [place] [address] WBC (LEUKOCYTE) (#/HPF) IN URINE SEDIMENT None Seen Normal None Seen [facility] Comment on above: Performed By: #### L [id number] ####[facility] [place] [address] APTTon 04-21-2024 ACTIVATED PARTIAL THROMBOPLASTIN TIME IN PPP BY COAGULATION ASSAY 22.9 Seconds Low 25.0-35.0 [facility] Comment on above: Result Comment: Clin ical significance of the APTT is questionable in the presence of heparin. Performed By: #### L [id number] ####[facility] (BEAKER)[address] [place] [address] BASIC METABOLIC PANELon 04-05 Anion gap [Moles/Vol] 8 mmol/L Normal 7-20 [facility] Comment on above: Performed By: #### L [id number] ####[facility] (BEAKER)[address] [place] [address] Calcium [Mass/Vol] 9.1 mg/dL Normal 8.6-10.3 [facility] Comment on above: Performed By: #### L [id number] ####[facility] (BEAKER)[address] [place] [address] Chloride [Moles/Vol] 105 mmol/L Normal 98-107 [facility] Comment on above: Performed By: #### L [id number] ####[facility] (BEAKER)[address] [place] [address] CO2 [Moles/Vol] 27 mmol/L Normal 21-31 [facility] Comment on above: Performed By: #### L [id number] ####[facility] ([facility])[address] [place] [address] Creatinine [Mass/Vol] 0.77 mg/dL Normal 0.60-1.20 [facility] Comment on above: Performed By: #### L [id number] ####[facility] ([facility])[address] [place] [address] GLOMERULAR FILTRATION RATE ML/MIN/1.73 SQ M.PREDICTED 86.1 mL/min/1.73m*2 Normal >60.0 [facility] Comment on above: Result Comment: [facility]???s estimated glomerular filtration rate (eGFR) will no longer include consideration of race in its calculation. The National Kid[employer] Foundation???s eGFR Task Force developed new recommendations for the estimation of the glomerular filtration rate in the [place] They recommend immediate implementation of the new equation refit without the race variable in all laboratories because the calculation does not include race. In addition to not including race in the calculation and reporting, it included diversity in its development, and has acceptable performance characteristics and potential consequences that do not disproportionately affect any one group of individuals. Performed By: #### L [id number] ####[facility] ([facility])[address] [place] [address] Glucose [Mass/Vol] 158 mg/dL High 70-100 [facility] Comment on above: Performed By: #### L [id number] ####[facility] ([facility])[address] [place] [address] Potassium [Moles/Vol] 4.1 mmol/L Normal 3.5-5.1 [facility] Comment on above: Performed By: #### L [id number] ####[facility] ([facility])[address] [place] [address] Sodium [Moles/Vol] 136 mmol/L Normal 136-145 [facility] Comment on above: Performed By: #### L [id number] ####[facility] ([facility])[address] [place] [address] Urea nitrogen [Mass/Vol] 31 mg/dL High 7-25 [facility] Comment on above: Performed By: #### L [id number] ####[facility] [place] [address] UREA NITROGEN/CREATININE (MASS RATIO) IN SER/PLAS 40.[address] [facility] Comment on above: Performed By: #### L [id number] ####[facility] [place] [address] CBC WITH AUTO DIFFERENTIALon 04-21-2024 Basophils (Bld) [#/Vol] 0.03 10*3/uL Normal 0.00-0.20 [facility] Comment on above: Performed By: #### L [id number] ####[facility] [place] [address] Basophils/100 WBC (Bld) 0.2 % Normal 0.0-1.0 [facility] Comment on above: Performed By: #### L [id number] ####[facility] [place] [address] Eosinophils (Bld) [#/Vol] 0.23 10*3/uL Normal 0.00-0.50 [facility] Comment on above: Performed By: #### L [id number] ####[facility] [place] [address] Eosinophils/100 WBC (Bld) 1.8 % Normal 0.0-6.0 [facility] Comment on above: Performed By: #### L [id number] ####[facility] [place] [address] Erythrocyte distribution width (RBC) [Ratio] 13.3 % Normal 11.5-15.0 [facility] Comment on above: Performed By: #### L [id number] ####[facility] [place] [address] ERYTHROCYTE MEAN CORPUSCULAR HEMOGLOBIN CONCENTRATION (G/DL) BY AUTOMATED 32.7 g/dL Normal 32.0-35.0 [facility] Comment on above: Performed By: #### L [id number] ####[facility] [place] [address] Hematocrit (Bld) [Volume fraction] 35.5 % Low 36.0-48.0 [facility] Comment on above: Performed By: #### L [id number] ####[facility] ([facility])[address] [place] [address] Hemoglobin (Bld) [Mass/Vol] 11.6 g/dL Low 12.0-15.0 [facility] Comment on above: Performed By: #### L [id number] ####[facility] ([facility])[address] [place] [address] Immature granulocytes (Bld) [#/Vol] 0.04 10*3/uL Normal 0.00-0.20 [facility] Comment on above: Performed By: #### L [id number] ####[facility] ([facility])[address] [place] [address] Immature granulocytes/100 WBC (Bld) 0.3 % Normal 0.0-1.0 [facility] Comment on above: Performed By: #### L [id number] ####[facility] [place] [address] Lymphocytes (Bld) [#/Vol] 1.65 10*3/uL Normal 1.20-4.00 [facility] Comment on above: Performed By: #### L [id number] ####[facility] ([facility] [place] [address] Lymphocytes/100 WBC (Bld) 12.6 % Low 20.0-45.0 [facility] Comment on above: Performed By: #### L [id number] ####[facility] (BEAKER)[address] [place] [address] MCH (RBC) [Entitic mass] 30.0 pg Normal 27.0-33.0 [facility] Comment on above: Performed By: #### L [id number] ####[facility] (BEAKER)[address] [place] [address] MCV (RBC) [Entitic vol] 91.7 fL Normal 82.0-98.0 [facility] Comment on above: Performed By: #### L [id number] ####[facility] (BEAKER)[address] [place] [address] Monocytes (Bld) [#/Vol] 1.02 10*3/uL High 0.10-1.00 [facility] Comment on above: Performed By: #### L [id number] ####[facility] ([facility])[address] [place] [address] Monocytes/100 WBC (Bld) 7.8 % Normal 5.0-12.0 [facility] Comment on above: Performed By: #### L [id number] ####[facility] ([facility])[address] [place] [address] Neutrophils (Bld) [#/Vol] 10.12 10*3/uL High 1.60-7.60 [facility] Comment on above: Performed By: #### L [id number] ####[facility] [place] [address] Neutrophils/100 WBC (Bld) 77.3 % High 40.0-72.0 [facility] Comment on above: Performed By: #### L [id number] ####[facility] [place] [address] NRBC (PER 100 WBCS) BY AUTOMATED COUNT 0.0 % Normal 0 [facility] Comment on above: Performed By: #### L [id number] ####[facility] (BEAKER)[address] [place] [address] PLATELETS (10*3/UL) IN BLOOD AUTOMATED COUNT 334 10*3/uL Normal 150-400 [facility] Comment on above: Performed By: #### L [id number] ####[facility] (BEAKER)[address] [place] [address] RBC (Bld) [#/Vol] 3.87 10*6/uL Normal 3.80-5.00 [facility] Comment on above: Performed By: #### L [id number] ####[facility] (BEAKER)[address] [place] [address] WBC (Bld) [#/Vol] 13.09 10*3/uL High 4.00-10.60 [facility] Comment on above: Performed By: #### L [id number] ####[facility] [place] [address] CONSULTon 04-21-[address] [facility] CT CERVICAL SPINE WO IV CONT RASTon 04-21-2024 CT CERVICAL SPINE WO IV CONTRAST Normal [facility] CT CHEST W IV CONTRASTon CT CHEST W IV CONTRAST Normal [facility] CT HEAD WO IV CONTRASTon CT HEAD WO IV CONTRAST Normal [facility] CTA AORTA AND BILATERAL ILIO FEMORAL RUNOFF W IV CONTRASTon 04-21-2024 CTA AORTA AND BILATERAL ILIOFEMORAL RUNOFF W IV CONTRAST Normal [facility] EDNURSon 04-21-[address] [facility] EDNURS Transfer from [place] Normal [facility] EDPROVon 04-21-[address] [facility] ETHANOLon 04-21-2024 ETHANOL (MG/DL) IN SER/PLAS <[address] [facility] Comment on above: Performed By: #### L [id number] ####[facility] (BEAKER)[address] [place] [address] ETHANOL CALCULATED (%) [facility] Comment on above: Performed By: #### L [id number] ####[facility] (BEAKER)[address] [place] [address] HEPATIC FUNCTION PANELon Albumin [Mass/Vol] 3.5 g/dL Normal 3.5-5.7 [facility] Comment on above: Performed By: #### L [id number] ####[facility] (BEAKER)[address] [place] [address] ALP [Catalytic activity/Vol] 240 U/L High 34-104 [facility] Comment on above: Performed By: #### L [id number] ####[facility] (BEAKER)[address] [place] [address] ALT [Catalytic activity/Vol] 72 U/L High 7-52 [facility] Comment on above: Performed By: #### L [id number] ####[facility] [place] [address] AST [Catalytic activity/Vol] 131 U/L High 13-39 [facility] Comment on above: Performed By: #### L [id number] ####[facility] [place] [address] Bilirubin [Mass/Vol] 0.3 mg/dL Normal 0.3-1.0 [facility] Comment on above: Performed By: #### L [id number] ####[facility] [facility] ([facility] [place] [address] Magnesium [Mass/Vol] 0.1 mg/dL Normal 0-0.2 [facility] Comment on above: Performed By: #### L AB20 ####[facility] ([facility] [place] [address] Protein [Mass/Vol] 6.8 g/dL Normal 6.0-8.3 [facility] Comment on above: Performed By: #### L AB20 ####[facility] (BEAKER)[address] [place] [address] HPon 04-21-[address] [facility] HP Normal [facility] LACTIC ACID, PLASMAon 2023 LACTATE (MMOL/L) IN SER/PLAS 0.9 mmol/L Normal 0.5-2.2 [facility] Comment on above: Performed By: #### L AB95 ####[facility] (BEAKER)[address] [place] [address] LIPASEon 04-21-2024 LIPASE (U/L) IN SER/PLAS 8 U/L Low 11-82 [facility] Comment on above: Performed By: #### L AB99 ####[facility] (BEAKER)[address] [place] [address] PROTIME-INRon 04-21-2024 INR IN PPP BY COAGULATION ASSAY 0.99 Normal 0.90-1.10 [facility] Comment on above: Result Comment: ACCC P RECOMMENDED INR FOR [facility] THERAPY CONDITION INRPROPHYLAXIS OF VENOUS THROMBOSIS 2-3(HIGH-RISK SURGERY)TREATMENT OF VENOUS THROMBOSIS 2-3TREATMENT OF PULMONARY EMBOLISM 2-3PREVENTION OF SYSTEMIC EMBOLISM: 2-3 ACUTE MYOCARDIAL INFARCTION TISSUE HEART VALVES VALVULAR HEART DISEASE ATRIAL FIBRILLATION RECURRENT SYSTEMIC EMBOLISMMECHANICAL HEART VALVE 2.5-3.5 FROM: ORAL ANTICOAGULANTS. MECHANISM OF ACTION, CLINICAL EFFECTIVENESS, AND OPTIMAL THERAPEUTIC RANGE. CHEST 1995;108:231S-246S. Performed By: #### L [id number] ####[facility] (BEAKER)[address] [place] [address] PROTHROMBIN TIME (PT) IN PPP BY COAGULATION ASSAY 13.1 Seconds Normal 12.3-14.8 [facility] Comment on above: Performed By: #### L AB320 ####[facility] (BEAKER)[address] [place] [address] TROPONIN Ion 04-21-2024 Troponin I.cardiac [Mass/Vol] 0.01 ng/mL Normal 0.00-0.04 [facility] Comment on above: Performed By: #### L [id number] ####[facility] (JOSSE)[address] [facility] [address] TYPE AND SCREENon 04-21-[address] [facility] Comment on above: Performed By: #### L AB276 ####[facility] BLOOD BANK, ABO group Nom (Bld) A Normal [facility] Comment on above: Performed By: #### L AB276 ####[facility] BLOOD [facility], RH TYPE IN BLOOD Positive Normal [facility] Comment on above: Performed By: #### L [id number] ####[facility] BLOOD [facility], VITAMIN D 25 HYDROXYon 04-21 CALCIDIOL (25 [place] VITAMIN D3) (NG/ML) IN SER/PLAS 34.8 ng/mL Normal 30.0-80.0 [facility] Comment on above: Result Comment: >80. 0 Toxicity possible Performed By: #### L [id number] ####[facility] ([facility] [place] [address] BASIC METABOLIC PANLon 04-13 Anion gap [Moles/Vol] 10 mmol/L Normal 5-15 Pro [facility] Comment on above: Performed By: #### B MP #### [facility] ([id number]) [address], [address] [place] [address] Calcium [Mass/Vol] 9.9 mg/dL Normal 8.5-10.5 [facility] Comment on above: Performed By: #### B MP #### [facility] ([id number]) [address] [place] [address] Chloride [Moles/Vol] 100 mmol/L Normal 98-109 [facility] Comment on above: Performed By: #### B MP #### [facility] ([id number]) [address], [address] [place] [address] CO2 [Moles/Vol] 27 mmol/L Normal 22-32 [facility] Comment on above: Performed By: #### B MP #### [facility] ([id number]) [address], [address] [place] [address] Creatinine [Mass/Vol] 0.92 mg/dL Normal 0.40-1.00 [facility] Comment on above: Result Comment: METH OD TRACEABLE TO IDMS STANDARD Performed By: #### B MP #### [facility] ([id number]) [address], [address] [place] [address] GFR/1.73 sq M.predicted among non-blacks MDRD (S/P/Bld) [Vol rate/Area] 70 mL/min/{1.73_m2} Normal >59 [facility] Comment on above: Result Comment: Reported eGFR is based on the CKD-EPI 2020 equation that does not use a race coefficient. Performed By: #### B MP #### [facility] ([id number]) [address] [place] [address] Glucose [Mass/Vol] 151 mg/dL High 65-99 [facility] Comment on above: Performed By: #### B MP #### [facility] ([id number]) [address], [address] [place] [address] Potassium [Moles/Vol] 4.5 mmol/L Normal 3.5-5.0 [facility] Comment on above: Performed By: #### B MP #### [facility] ([id number]) [address], [address] [place] [address] Sodium [Moles/Vol] 137 mmol/L Normal 134-146 [facility] Comment on above: Performed By: #### B MP #### [facility] ([id number]) [address], [address] [place] [address] Urea nitrogen [Mass/Vol] 28 mg/dL High 5-27 [facility] Comment on above: Performed By: #### B MP #### [facility] ([id number]) [address], [address] [place] [address] DRUG SCREEN, URINEon 024 AMPHETAMINE/METHAMP Negative Normal NEG [facility] Comment on above: Result Comment: AMPH /METH screening cut off = 1000 ng/mL Performed By: #### SELENA STINSON #### [facility] ([id number]) [address], [address] [place] [address] BARBITURATES Negative Normal NEG [facility] Comment on above: Result Comment: Juana iturates screening cut off value = 200 ng/mL Performed By: #### SELENA STINSON #### [facility] ([id number]) [address], [address] [place] [address] BENZODIAZEPINES Negative Normal NEG [facility] Comment on above: Result Comment: Wade odiazepines screening cut off value = 200 ng/mL Performed By: #### SELENA STINSON #### [facility] ([id number]) [address], [address] [place] [address] CANNABINOIDS Negative Normal NEG [facility] Comment on above: Result Comment: Venus abinoids/THC screening cut off value = 50 ng/mL Performed By: #### SELENA STINSON #### [facility] ([id number]) [address], [address] [place] [address] COCAINE METABOLITE Negative Normal NEG [facility] Comment on above: Result Comment: Coca ine screening cut off value = 300 ng/mL Performed By: #### SELENA STINSON #### [facility] ([id number]) [address], [address] [place] [address] ECSTASY Negative Normal NEG [facility] Comment on above: Result Comment: Ecst asy screening cut off value = 500 ng/mL This report is intended for use in clinical monitoring or management of patients. Performed By: #### SELENA STINSON #### [facility] ([id number]) [address], [address] [place] [address] METHADONE Negative Normal NEG [facility] Comment on above: Result Comment: Meth adone screening cut off value = 300 ng/mL. Performed By: #### SELENA STINSON #### [facility] ([id number]) [address], [address] [place] [address] OPIATES Negative Normal NEG [facility] Comment on above: Result Comment: Opia rafal screening cut off value = 300 ng/mL NOTE: This test is used for the detection of codeine, hydrocodone (>1000 ng/mL), morphine and hydromorphone (>900 ng/mL) in urine. Performed By: #### SELENA STINSON #### [facility] ([id number]) [address], [address] [place] [address] OXYCODONE Negative Normal NEG [facility] Comment on above: Result Comment: Oxyc odone screening cut off value = 300 ng/mL NOTE: This test is used for the detection of oxycodone and oxymorphone in urine. Performed By: #### SELENA STINSON #### [facility] ([id number]) [address], [address] [place] [address] PHENCYCLIDINE Negative Normal NEG [facility] Comment on above: Result Comment: Phen cyclidine screening cut off value = 25 ng/mL Performed By: #### SELENA STINSON #### [facility] ([id number]) [address], [address] [place] [address] MICROALBUMIN - ALBUMIN:CREAT ININE URINE RATIOon 03-27-2024 ALB/CREAT RATIO 37.7 mg/g creat High 0.0-30.0 [facility] Comment on above: Performed By: #### SELENA STINSON #### [facility] ([id number]) [address], [address] [place] [address] Albumin DL <= 20 mg/L (U) [Mass/Vol] 2.0 mg/dL High 0.0-1.9 [facility] Comment on above: Performed By: #### SELENA STINSON #### [facility] ([id number]) [address], [facility] [address] [place] [address] URINE CREAT 53.06 mg/dL Normal [facility] Comment on above: Performed By: #### SELENA STINSON #### [facility] ([id number]) [address] [address] [place] [address] COMPLETE BLOOD COUNTon 03-26 Erythrocyte distribution width (RBC) [Ratio] 14.4 % Normal 11.5-15.0 [facility] Comment on above: Performed By: #### Sheila ALY, CMP #### [facility] ([id number]) [address], [address] [place] [address] Hematocrit (Bld) [Volume fraction] 40.1 % Normal 35-47 [facility] Comment on above: Performed By: #### Sheila ALY, CMP #### [facility] ([id number]) [address], [address] [place] [address] Hemoglobin (Bld) [Mass/Vol] 13.5 g/dL Normal 11.7-15.5 [facility] Comment on above: Performed By: #### Sheila BC, CMP #### [facility] ([id number]) [address] [place] [address] MCH (RBC) [Entitic mass] 30.8 pg Normal 27-34 [facility] Comment on above: Performed By: #### Sheila BC, CMP #### [facility] ([id number]) [address] [address] [place] [address] MCHC (RBC) [Mass/Vol] 33.7 g/dL Normal 32-36 [facility] Comment on above: Performed By: #### C BC, CMP #### [facility] ([id number]) [address], [address] [place] [address] MCV (RBC) [Entitic vol] 91 fL Normal 80-100 [facility] Comment on above: Performed By: #### C BC, CMP #### [facility] ([id number]) [address], [address] [place] [address] Platelet mean volume (Bld) [Entitic vol] 9.8 fL Normal 7-12 [facility] Comment on above: Performed By: #### C SHEEBA, CMP #### [facility] ([id number]) [address], [address] [place] [address] Platelets (Bld) [#/Vol] 308 10*3/uL Normal 150-450 [facility] Comment on above: Performed By: #### C BC, CMP #### [facility] ([id number]) [address] [place] [address] RBC COUNT 4.39 X10E12/L Normal 3.80-5.20 [facility] Comment on above: Performed By: #### C SHEEBA, CMP #### [facility] ([id number]) [address], [address] [place] [address] WBC (Bld) [#/Vol] 10.1 10*3/uL Normal 4.0-11.0 [facility] Comment on above: Performed By: #### C BC, CMP #### [facility] ([id number]) [address], [address] [place] [address] COMPREHENSIVE METABOLIC PANE Neftali 03-26-2024 Albumin [Mass/Vol] 3.8 g/dL Normal 3.2-5.3 [facility] Comment on above: Performed By: #### C BC, CMP #### [facility] ([id number]) [address], [address] [place] [address] ALP [Catalytic activity/Vol] 133 U/L High 39-130 [facility] Comment on above: Performed By: #### C BC, CMP #### [facility] ([id number]) [address] [place] [address] ALT [Catalytic activity/Vol] 22 U/L Normal 0-31 [facility] Comment on above: Performed By: #### C BC, CMP #### [facility] ([id number]) [address] [place] [address] Anion gap [Moles/Vol] 7 mmol/L Normal 5-15 [facility] Comment on above: Performed By: #### C SHEEBA, CMP #### [facility] ([id number]) [address], [address] [place] [address] AST [Catalytic activity/Vol] 24 U/L Normal 0-41 [facility] Comment on above: Performed By: #### C SHEEBA, CMP #### [facility] ([id number]) [address] [place] [address] Bilirubin [Mass/Vol] 0.4 mg/dL Normal 0.3-1.2 [facility] Comment on above: Performed By: #### C SHEEBA, CMP #### [facility] ([id number]) [address] [place] [address] Calcium [Mass/Vol] 9.6 mg/dL Normal 8.5-10.5 [facility] Comment on above: Performed By: #### C BC, CMP #### [facility] ([id number]) [address] [place] [address] Chloride [Moles/Vol] 102 mmol/L Normal 98-109 [facility] Comment on above: Performed By: #### C BC, CMP #### [facility] ([id number]) [address], [address] [place] [address] CO2 [Moles/Vol] 28 mmol/L Normal 22-32 [facility] Comment on above: Performed By: #### C SHEEBA, CMP #### [facility] ([id number]) [address], [address] [place] [address] Creatinine [Mass/Vol] 0.96 mg/dL Normal 0.40-1.00 [facility] Comment on above: Result Comment: METH OD TRACEABLE TO IDMS STANDARD Performed By: #### C SHEEBA, CMP #### [facility] ([id number]) [address] [place] [address] GFR/1.73 sq M.predicted among non-blacks MDRD (S/P/Bld) [Vol rate/Area] 66 mL/min/{1.73_m2} Normal >59 [facility] Comment on above: Result Comment: Reported eGFR is based on the CKD-EPI 2020 equation that does not use a race coefficient. Performed By: #### C SHEEBA, CMP #### [facility] ([id number]) [address], [address] [place] [address] Glucose [Mass/Vol] 179 mg/dL High 65-99 [facility] Comment on above: Performed By: #### Sheila ALY, CMP #### [facility] ([id number]) [address] [address] [address] [place] [address] Potassium [Moles/Vol] 5.1 mmol/L High 3.5-5.0 [facility] Comment on above: Performed By: #### C SHEEBA, CMP #### [facility] ([id number]) [address], [address] [place] [address] Protein [Mass/Vol] 7.2 g/dL Normal 6.0-8.0 [facility] Comment on above: Performed By: #### C BC, CMP #### [facility] ([id number]) [address], [address] [place] [address] Sodium [Moles/Vol] 137 mmol/L Normal 134-146 [facility] Comment on above: Performed By: #### C BC, CMP #### [facility] ([id number]) [address], [address] [place] [address] Urea nitrogen [Mass/Vol] 23 mg/dL Normal 5-27 [facility] Comment on above: Performed By: #### C BC, CMP #### [facility] ([id number]) [address], [address] [place] [address] Lipid 1996 panelon 4 Cholesterol [Mass/Vol] 106 mg/dL Low 150 - 200 mg/dL [facility] Cholesterol in HDL [Mass/Vol] 46 mg/dL 39 - PINF mg/dL [facility] Comment on above: HDL <40 mg/dL - High Risk HDL > or = 40mg/dL- Desirable HDL >60 mg/dL - Negative Risk Cholesterol in LDL [Mass/Vol] 38 mg/dL NINF - 130 mg/dL [facility] Comment on above: LDL <100 mg/dL - Desirable LDL >160 mg/dL - High Risk Cholesterol in VLDL [Mass/Vol] 22 mg/dL 0 - 30 mg/dL [facility] Cholesterol.total/Cho lesterol in HDL [Mass ratio] 2.3 {ratio} 1.0 - 5.0 [facility] Interpretation and review of laboratory results Abnormal [facility] [employer] Triglyceride [Mass/Vol] 110 mg/dL 27 - 150 mg/dL [facility] Cholesterol [Mass/Vol] 106 mg/dL Low 150-200 [facility] Comment on above: Performed By: #### 2 4331-1, 3015-3 #### [facility] ([id number]) [address], [address] [place] [address] Cholesterol in HDL [Mass/Vol] 46 mg/dL Normal >39 [facility] Comment on above: Result Comment: HDL <40 mg/dL - High Risk HDL > or = 40mg/dL- Desirable HDL >60 mg/dL - Negative Risk Performed By: #### 2 4331-1, 3015- #### [facility] ([id number]) [address] [place] [address] Cholesterol in LDL [Mass/Vol] 38 mg/dL Normal <130 [facility] Comment on above: Result Comment: LDL <100 mg/dL - Desirable LDL >160 mg/dL - High Risk Performed By: #### 2 4331-1, 3015-3 #### [facility] ([id number]) [address] [place] [address] Cholesterol in VLDL [Mass/Vol] 22 mg/dL Normal 0-30 [facility] Comment on above: Performed By: #### 2 4331-1, 3015-3 #### [facility] ([id number]) [address], [address] [place] [address] CHOLESTEROL:HDL 2.3 Normal 1.0-5.0 [facility] Comment on above: Performed By: #### 2 4331-1, 3015- #### [facility] ([id number]) [address] [facility] [place] [address] Triglyceride [Mass/Vol] 110 mg/dL Normal 27-150 [facility] Comment on above: Performed By: #### 2 4331-1, 3016-3 #### [facility] ([id number]) [address] [place] [address] TSHon 12-05-2023 TSH Qn 3.00 m[IU]/L [facility] TSH Qnon 12-05-2023 [facility] TSH 3.00 uIU/mL Normal 0.49-4.67 [facility] Comment on above: Performed By: #### 2 4331-1, 3016-3 #### [facility] ([id number]) [address] [place] [address] POINT OF CARE GLUCOSEon 10-06 Glucose [Mass/Vol] 252 mg/dL Critically high 74-106 [facility] Comment on above: Performed By: #### P OCGLUC ####[facility] [address] [place], [place] [address]Dr. Abile Clement PROF CHEM 8 (BAS METB)on Anion gap [Moles/Vol] 11.5 mmol/L Normal [facility] Comment on above: Performed By: #### B MP ####[facility] [address] [place], [place] [address]Dr. Abiel Clement Calcium [Mass/Vol] 9.6 mg/dL Normal 8.5-10.1 [facility] Comment on above: Performed By: #### B MP ####[facility] [address] [place], [place] [address]Dr. Abiel Clement Chloride [Moles/Vol] 102 mmol/L Normal 98-107 [facility] Comment on above: Performed By: #### B MP ####[facility] [address] [place], [place] [address]Dr. Abiel Clement CO2 [Moles/Vol] 30.8 mmol/L Normal 21.0-32.0 [facility] Comment on above: Performed By: #### B MP ####[facility] [address] [place] [address]Dr. Abiel Urbano Creatinine [Mass/Vol] 0.72 mg/dL Normal 0.55-1.02 [facility] Comment on above: Performed By: #### B MP ####[facility] [address] [address]Dr. Abiel Urbano EGFR-AF TANZANIAN >60 Normal >=60 [facility] Comment on above: Performed By: #### B MP ####[facility] [address] [address]Dr. Abiel Clement EGFR-NON AF TANZANIAN >60 Normal >=60 [facility] Comment on above: Performed By: #### B MP ####[facility] [address] [place], [place] [address]Dr. Abiel Clement Glucose [Mass/Vol] 127 mg/dL Critically high 74-106 [facility] Comment on above: Performed By: #### B MP ####[facility] [address] [place], [place] [address]Dr. Abiel Clement Potassium [Moles/Vol] 4.3 mmol/L Normal 3.5-5.1 [facility] Comment on above: Performed By: #### B MP ####[facility] [address] [place], [place] [address]Dr. Abiel Clement Sodium [Moles/Vol] 140 mmol/L Normal 136-145 [facility] Comment on above: Performed By: #### B MP ####[facility] [address] [address]Dr. Abiel Clement Urea nitrogen [Mass/Vol] 17.0 mg/dL Normal 7.0-18.0 [facility] Comment on above: Performed By: #### B MP ####[facility] [address] [address]Dr. Abiel Clement Urea nitrogen/Creatinine [Mass ratio] 23.6 mg/mg Normal [facility] Comment on above: Performed By: #### B MP ####[facility] [address] [place] [id number]. Abiel Clement CULTURE URINEon 08-07-2022 CULTURE URINE Normal [facility] Comment on above: Performed By: #### U RCX ####[facility] [address] [place] [id number]. Abiel Clement CBC W MANUAL DIFFon 08-05-20 22 ANISOCYTOSIS SLIGHT Normal [facility] Comment on above: Performed By: #### C BCALLY ####[facility] [address] [place] [address]Dr. Abiel Clement ATYPICAL LYMPH # Normal [facility] Comment on above: Performed By: #### C ALVINO ####[facility] [address] [address]Dr. Abiel Clemetn ATYPICAL LYMPH % Normal [facility] Comment on above: Performed By: #### C ALVINO ####[facility] [address] [place], [place] [address]Dr. Abiel Clement BAND # 0.6 103/ul Critically high 0.0-0.3 [facility] Comment on above: Performed By: #### C BCALLY ####[facility] [address] [place], [place] [address]Dr. Abiel Clement BAND % 3 % Normal 0-5 [facility] Comment on above: Performed By: #### C BCALLY ####[facility] [address] [place], [place] [address]Dr. Abiel Clement BASOM # 0.00 103/ul Normal 0.00-0.10 [facility] Comment on above: Performed By: #### C BCALLY ####[facility] [address] [place], [place] [address]Dr. Abiel Clement BASOM % 0.0 % Critically low 0.2-2.0 [facility] Comment on above: Performed By: #### C BCALLY ####[facility] [address] [place], [place] [address]Dr. Abiel Clement BLAST # Normal [facility] Comment on above: Performed By: #### C ALVINO ####[facility] [address] [place] [id number]. Abiel Clement BLAST % Normal [facility] Comment on above: Performed By: #### C ALVINO ####[facility] [address] [place], [place] [address]Ea. Abiel Clement CORRECTED WBC Normal 4.0-11.0 [facility] Comment on above: Performed By: #### C ALVINO ####[facility] [address] [place] [id number]. Abiel Clement EOS # 0.00 103/ul Normal 0.00-0.70 [facility] Comment on above: Performed By: #### C ALVINO ####[facility] [address] [place] [id number]. Abiel Clement EOS% 0.0 % Critically low 0.9-7.[address] [facility] Comment on above: Performed By: #### C ALVINO ####[facility] [address] [place] [phone]. Abiel Clement HCT 34.0 % Critically low 36.0-48.0 [facility] Comment on above: Performed By: #### C ALVINO ####[facility] [address] [place] [phone]. Abiel Clement HGB 10.8 g/dl Critically low 12.0-16.0 [facility] Comment on above: Performed By: #### C ALVINO ####[facility] [id number] [place] [id number]. Abiel Clement LYMPHM # 0.61 103/ul Critically low 1.20-3.80 [facility] Comment on above: Performed By: #### C ALVINO ####[facility] [id number] [place] [id number]. Abiel Clement LYMPHM% 3.0 % Critically low 20.5-60.0 [facility] Comment on above: Performed By: #### C ALVINO ####[facility] Y[address]fr[address]ie[address] [place] [phone]. Abiel Clement MCH 27.3 pg Normal 26.7-34.0 The [facility] Comment on above: Performed By: #### C ALVINO ####[facility] Fxuvvmqwcr4[address] [place] [phone]. Abiel Clement MCHC 31.8 g/dl Normal 29.9-35.2 The [facility] Comment on above: Performed By: #### C ALVINO ####[facility] Gbmjzisuqt9[address] [place] [phone]. Abiel Clement MCV 85.9 fL Normal 81.0-99.0 The [facility] Comment on above: Performed By: #### C ALVINO ####[facility] Zokqnueifk[address] [place], [place] [address]Dr. Abiel Clement METAMYELOCYTE # Normal The [facility] Comment on above: Performed By: #### C ALVINO ####[facility] Aezpafmlac[address] [place], [place] [address]Dr. Abiel Clement METAMYELOCYTE % Normal The [facility] Comment on above: Performed By: #### C ALVINO ####[facility] Rhjaeajdpa[address] [place], [place] [address]Dr. Abiel Clement MONOM# 1.01 103/ul Critically high 0.30-0.80 The [facility] Comment on above: Performed By: #### C ALVINO ####[facility] Utmdlifhkr[address] [place], [place] [address]Dr. Abiel Clement MONOM% 5.0 % Normal 1.7-12.0 The [facility] Comment on above: Performed By: #### C ALVINO ####[facility] Qdikuygpgt6[address] [place] [phone]. Abiel Clement MPV 11.1 fL Normal 9.5-13.5 The [facility] Comment on above: Performed By: #### C ALVINO ####[facility] Vnfcylbpwf[address] [place], [place] [address]Dr. Abiel Clement MYELOCYTE # Normal The [facility] Comment on above: Performed By: #### C ALVINO ####[facility] Bpeop[address]sm36[address] [place], [place] [address]Uk. Abiel Clement MYELOCYTE % Normal The [facility] Comment on above: Performed By: #### C BCMAN ####[facility] Bhwfjwzpfb4[address] [place], [place] [address]Sf. Abiel Clement NRBC Normal The [facility] Comment on above: Performed By: #### C BCALLY ####[facility] Shzghqnnno2304 [place] [phone]. Abiel Clement PLT 283 103/ul Normal 150-450 The [facility] Comment on above: Performed By: #### C BCALLY ####[facility] Ajnepogdci05[address] [place] [phone]. Abiel Clement RBC 3.96 106/ul Critically low 4.20-5.40 The [facility] Comment on above: Performed By: #### C ALVINO ####[facility] Hqvamvbuuy39[address] [place] [phone]. Abiel Clement RDW 15.4 % Critically high 11.0-15.0 [facility] Comment on above: Performed By: #### C ALVINO ####[facility] Fzhgacsddg3928 [place] [phone]. Abiel Clement SEG # 18.07 103/ul Critically high 1.40-6.50 [facility] Comment on above: Performed By: #### C ALVINO ####[facility] Varnjbgxuc04[address] [place] [phone]. Abiel Clement SEG % 89.0 % Critically high 43.0-75.0 The [facility] Comment on above: Performed By: #### C BCMAN ####[facility] Vkvxpdkexx0[address] [place] [phone]. Abiel Clement WBC 20.3 103/ul Critically high 4.0-11.0 The [facility] Comment on above: Performed By: #### C BCALLY ####[facility] Tgahsgbqiw1606 [place] [phone]. Abiel Clement LACTATE/LACTIC ACIDon 2021 Lactate [Moles/Vol] 2.5 mmol/L Critically high 0.4-1.9 [facility] Comment on above: Performed By: #### L ACT ####[facility] Zxynfeykaq[address] [place], [place] [address]Dr. Abiel Clement POINT OF CARE GLUCOSEon 12-0 Glucose [Mass/Vol] 238 mg/dL Critically high 74-106 [facility] Comment on above: Performed By: #### P OCGLUC ####[facility] Pqwoabnvph75[address] [place], [place] [address]Dr. Abiel Clement PROF CHEM 8 (BAS METB)on Anion gap [Moles/Vol] 10.8 mmol/L Normal [facility] Comment on above: Performed By: #### B MP ####[facility] Sqykftmtfi[address] [place], [place] [address]Dr. Abiel Clement Calcium [Mass/Vol] 8.4 mg/dL Critically low 8.5-10.1 [facility] Comment on above: Performed By: #### B MP ####[facility] Kqlhzzubcp[address] [place], [place] [address]Dr. Abiel Clement Chloride [Moles/Vol] 103 mmol/L Normal 98-107 [facility] Comment on above: Performed By: #### B MP ####[facility] Ubyuqeimld7[address] [place], [place] [address]Dr. Abiel Clement CO2 [Moles/Vol] 27.0 mmol/L Normal 21.0-32.0 [facility] Comment on above: Performed By: #### B MP ####[facility] Jxphwbceuk[address] [place], [place] [address]Dr. Abiel Clement Creatinine [Mass/Vol] 1.02 mg/dL Normal 0.55-1.02 [facility] Comment on above: Performed By: #### B MP ####[facility] Hmzlxwozfw[address] [place], [place] [address]Dr. Abiel Clement EGFR-AF TANZANIAN >60 Normal >=60 The [facility] Comment on above: Performed By: #### B MP ####[facility] Qwmghemkbp50[address] [place] [address]Dr. Abiel Clement EGFR-NON AF TANZANIAN 55 mL/min/1.73m2 Critically low >=60 [facility] Comment on above: Performed By: #### B MP ####[facility] Mpbujopiqx46[address] [place] [address]Dr. Abiel Clement Glucose [Mass/Vol] 199 mg/dL Critically high 74-106 [facility] Comment on above: Performed By: #### B MP ####[facility] Ktcolcwgod45[address] [place] [address]Dr. Abiel Clement Potassium [Moles/Vol] 3.8 mmol/L Normal 3.5-5.1 [facility] Comment on above: Performed By: #### B MP ####[facility] Slkcvsmvyf07[address] [place], [place] [address]Dr. Abiel Clement Sodium [Moles/Vol] 137 mmol/L Normal 136-145 [facility] Comment on above: Performed By: #### B MP ####[facility] Wecksrdgnc8[address] [place], [place] [address]Dr. Abiel Clement Urea nitrogen [Mass/Vol] 21.0 mg/dL Critically high 7.0-18.0 [facility] Comment on above: Performed By: #### B MP ####[facility] Mlfnkkbusf006[address] [place], [place] [address]Dr. Abiel Clement Urea nitrogen/Creatinine [Mass ratio] 20.6 mg/mg Normal [facility] Comment on above: Performed By: #### B MP ####[facility] Ybpvihwaqg350[address] [place], [place] [address]Dr. Abiel Clement ACETONE SERUMon 08-04-2022 ACETONE Negative Normal NEGATIVE [facility] Comment on above: Performed By: #### A CETON ####[facility] Fjwephemde7[address] [place], [place] [address]Dr. Abiel Clement AMMONIAon 08-04-2022 Ammonia (P) [Moles/Vol] 24 umol/L Normal 11-32 [facility] Comment on above: Performed By: #### A MM ####[facility] Mzljfmxueb85[address] [place] [phone]. Abiel Clement CBC AUTO DIFFon 08-04-2022 BASO # 0.0 103/ul Normal 0.0-0.1 The [facility] Comment on above: Performed By: #### C BC ####[facility] Wveooibctw[address] [place], [place] [address]Dr. Suyapaviviana Clement Basophils/100 WBC (Bld) 0.3 % Normal 0.2-2.0 The [facility] Comment on above: Performed By: #### C BC ####[facility] Qflvvfyojn[address] [place], [place] [address]Dr. Abiel Clement EO # 0.0 103/ul Normal 0.0-0.7 The [facility] Comment on above: Performed By: #### C BC ####[facility] Jdomxqqxcj[address] [place], [place] [address]Dr. Abiel Clement Eosinophils/100 WBC (Bld) 0.4 % Critically low 0.9-7.0 The [facility] Comment on above: Performed By: #### C BC ####[facility] Evfiixdnkm[address] [place], [place] [address]Dr. Suyapaviviana Clement Erythrocyte distribution width (RBC) [Ratio] 15.1 % Critically high 11.0-15.0 [facility] Comment on above: Performed By: #### C BC ####[facility] Yefdhbeaie[address] [place], [place] [address]Dr. Abiel Clement Hematocrit (Bld) [Volume fraction] 37.7 % Normal 36.0-48.0 The [facility] Comment on above: Performed By: #### C BC ####[facility] Scmieznnvi[address] [place], [place] [address]Dr. Suyapaviviana Clement Hemoglobin (Bld) [Mass/Vol] 12.4 g/dL Normal 12.0-16.0 The [facility] Comment on above: Performed By: #### C BC ####[facility] Iwylb[address]kwq[address] [place], [place] [address]Dr. Abiel Clement IG # 0.02 10e3/ul Normal 0.00-0.03 The [facility] Comment on above: Performed By: #### C BC ####[facility] Lcdxpqwkoa36[address] [place] [phone]. Abiel Clement IG % 0.2 % Normal 0.0-0.5 [facility] Comment on above: Performed By: #### C BC ####[facility] Fipxoxmqby59[address] [place] [phone]. Abiel Clement LYMPH # 0.6 103/ul Critically low 1.2-3.[address] [facility] Comment on above: Performed By: #### C BC ####[facility] Sumvjjkbuw8[address] [place] [phone]. Abiel Urbano Lymphocytes/100 WBC (Bld) 6.8 % Critically low 20.5-60.0 [facility] Comment on above: Performed By: #### C BC ####[facility] Gznvteirld[address] [place] [address]Dr. Abiel Clement MANUAL DIFF REQ NO Normal [facility] Comment on above: Performed By: #### C BC ####[facility] Dwelwihwvm59[address] [place] [phone]. Abiel Clement MCH (RBC) [Entitic mass] 27.7 pg Normal 26.7-34.0 [facility] Comment on above: Performed By: #### C BC ####[facility] Yhcjbcqize17[address] [place] [phone]. Abiel Clement MCHC (RBC) [Mass/Vol] 32.9 g/dL Normal 29.9-35.2 The [facility] Comment on above: Performed By: #### C BC ####[facility] Fhlnrtiroz8244 [place] [phone]. Abiel Clement MCV (RBC) [Entitic vol] 84.2 fL Normal 81.0-99.0 The [facility] Comment on above: Performed By: #### C BC ####[facility] Zlbmagemzq[address] [place], [place] [address]Dr. Abiel Clement MONO # 0.4 103/ul Normal 0.3-0.8 The [facility] Comment on above: Performed By: #### C BC ####[facility] Aolscicnfy38[address] [place] [phone]. Abiel Clement Monocytes/100 WBC (Bld) 4.7 % Normal 1.7-12.0 [facility] Comment on above: Performed By: #### C BC ####[facility] Ospcsmpaik45[address] [place] [phone]. Abiel Clement NEUT # 8.1 103/ul Critically high 1.4-6.5 [facility] Comment on above: Performed By: #### C BC ####[facility] Lfqacsaeze3051 [place] [phone]. Abiel Clement Neutrophils/100 WBC (Bld) 87.6 % Critically high 43.0-75.0 [facility] Comment on above: Performed By: #### C BC ####[facility] Eprgaijrgr5[address] [place] [phone]. Abiel Clement Platelet mean volume (Bld) [Entitic vol] 10.5 fL Normal 9.5-13.5 [facility] Comment on above: Performed By: #### C BC ####[facility] Maboytsnvd48[address] [place] [phone]. Abiel Clement PLT 286 103/ul Normal 150-450 The [facility] Comment on above: Performed By: #### C BC ####[facility] Gpnxizbaeh50[address] [place] [phone]. Abiel Clement RBC 4.48 106/ul Normal 4.20-5.40 The [facility] Comment on above: Performed By: #### C BC ####[facility] Campobtvfv1097 [place] [phone]. Abiel Clement WBC 9.2 103/ul Normal 4.0-11.0 The [facility] Comment on above: Performed By: #### C BC ####[facility] Kobtjekiag[address] [place] [phone]. Abiel Clmeent CT ABD/PELV W CONon 08-04-20 CT ABD/PELV W CON Normal [facility] CT HEAD WO CONon 08-04-2022 CT HEAD WO CON Normal The [facility] CULTURE BLOODon 08-04-2022 Microscopic examination of blood, culture Culture Observations: NO GROWTH AT 5 DAYS. Normal The [facility] Comment on above: Performed By: #### B LDCX1 ####[facility] Feyqsinwfv25[address] [place], [place] [address]Xr. Abiel Clement Performed By: #### B LDCX2 ####[facility] Xcakkykymw05[address] [place] [phone]. Abiel Clement Covid-19 PCR (CVDTB)on 07-08 SARS-CoV-2 (COVID-19) RNA CLARIBEL+probe Ql (Unsp spec) Not detected Normal NOT DETECTED The [facility] Comment on above: Result Comment: When diagnostic [...] for this test is supported by the [place] [employer] and [employer]'s declaration that [...] be used). Performed By: #### C VDTBH ####[facility] Uilgecfzfm0162 [place], [place] [address]Sx. Abiel Clement DRUG SCREEN RAPID (URINE)on 08-04-2022 AMP Negative Normal NEGATIVE The [facility] Comment on above: Performed By: #### D RUGRPD ####[facility] Qonizoslfr3427 [place], [place] [address]Xu. Abiel Clement BAR Negative Normal NEGATIVE The [facility] Comment on above: Performed By: #### D RUGRPD ####[facility] [address] [place], [place] [address]Dr. Abiel Clement BUP Negative Normal NEGATIVE The [facility] Comment on above: Performed By: #### D RUGRPD ####[facility] [address]wevabnufb[address] [place], [place] [address]Dr. Abiel Clement BZO Negative Normal NEGATIVE The [facility] Comment on above: Performed By: #### D RUGRPD ####[facility] Yswasgagyg[address] [place], [place] [address]Dr. Abiel Clement CAROLINE Negative Normal NEGATIVE The [facility] Comment on above: Performed By: #### D RUGRPD ####[facility] Gmzrtpzxqo2[address] [place], [place] [address]Dr. Abiel Clement CUT-OFFS SEE BELOW Normal The [facility] Comment on above: Result Comment: AMP (Amphetamine): 500ng/mL, BAR (Barbituates): 200 ng/mL, BZO (Benzodiazepines): 150 ng/mL, BUP (Buprenorphine): 10 ng/mL, CAROLINE (Cocaine): 150 ng/mL, mAMP (Methamphetamine): 500 ng/mL, MTD (Methadone): 200 ng/mL, OPI (Opiates): 100 ng/mL, OXY (Oxycodone): 100 ng/mL, PCP (Phencyclidine): 25 ng/mL, PPX (Propoxyphene): 300 ng/mL, THC (Cannabinoids): 50 ng/mL, TCA (Trycyclic Antidepressants): 300 ng/mL Performed By: #### D RUGRPD ####[facility] Zibkwruerb[address] [place], [place] [address]Dr. Abiel Clement DRUG CUT HEADER DRUG CLASS TEST SYSTEM CUT-OFF CONCENTRATIONS ARE FOLLOWS: Normal The [facility] Comment on above: Performed By: #### D RUGRPD ####[facility] Lpsoodbwtr[address] [place], [place] [address]Dr. Abiel Clement mAMP Negative Normal NEGATIVE The [facility] Comment on above: Performed By: #### D RUGRPD ####[facility] Pgdtrcaitn5[address] [place], [place] [address]Dr. Abiel Clement MTD Negative Normal NEGATIVE The [facility] Comment on above: Performed By: #### D RUGRPD ####[facility] Gwvucbmfam64[address] [place] [address]Dr. Abiel Clement OPI Positive Abnormal NEGATIVE The [facility] Comment on above: Performed By: #### D RUGRPD ####[facility] Omtyamugnt38[address] [place] [address]Dr. Yilan Clement OXY Negative Normal NEGATIVE The [facility] Comment on above: Performed By: #### D RUGRPD ####[facility] Zeqtnmqxan24[address] [place] [address]Dr. Yilan Clement PCP Negative Normal NEGATIVE The [facility] Comment on above: Performed By: #### D RUGRPD ####[facility] Yf[address]vdfbgi[address] [place], [place] [address]Dr. Yilan Clement PPX Negative Normal NEGATIVE The [facility] Comment on above: Performed By: #### D RUGRPD ####[facility] Dwhwzbijet4[address] [place], [place] [address]Dr. Yilan Clement TCA Negative Normal NEGATIVE The [facility] Comment on above: Performed By: #### D RUGRPD ####[facility] Hpzxnqkuqi[address] [place], [place] [address]Dr. Yilan Clement THC Negative Normal NEGATIVE The [facility] Comment on above: Performed By: #### D RUGRPD ####[facility] Dtjehbaoym[address] [place], [place] [address]Dr. Abiel Clement ER URINE PROFILEon 2 Bilirubin Ql (U) Negative Normal NEGATIVE The [facility] Comment on above: Performed By: #### NESSA ACE ####[facility] Podozgrqsy[address] [place] [address]Dr. Suyapalan Clement Clarity (U) CLEAR Normal CLEAR The [facility] Comment on above: Performed By: #### NESSA ACE ####[facility] Igyfzcfyyh9[address] [place], [place] [address]Dr. Yilan Clement Color (U) LT. YELLOW Normal YELLOW The [facility] Comment on above: Performed By: #### NESSA ACE ####[facility] Xtxcdhszhk98[address] [place], [place] [address]Dr. Abiel KEY A micrscopic examination will be performed if indicated. Normal The [facility] Comment on above: Performed By: #### NESSA ACE ####[facility] Qezvlvfsmb[address] [place], [place] [address]Dr. Abiel Clement Glucose Ql (U) Negative Normal NEGATIVE The [facility] Comment on above: Performed By: #### NESSA ACE ####[facility] Nsztjlnmdi[address] [place], [place] [address]Dr. Abiel Clement Hemoglobin Ql (U) SMALL Abnormal NEGATIVE The [facility] Comment on above: Performed By: #### NESSA ACE ####[facility] Shxdryyjbu34[address] [place], [place] [address]Dr. Abiel Clement Ketones Ql (U) Negative Normal NEGATIVE The [facility] Comment on above: Performed By: #### CARLOS ACERO ####[facility] Ahvjoevcul05[address] [place], [place] [address]Dr. Abiel Clement LEUKOCYTES LARGE Abnormal NEGATIVE The [facility] Comment on above: Performed By: #### NESSA ACE ####[facility] Yoxujcyrgl[address] [place], [place] [address]Dr. Abiel Clement Nitrite Ql (U) Negative Normal NEGATIVE The [facility] Comment on above: Performed By: #### NESSA ACE ####[facility] Adqipammcw14[address] [place], [place] [address]Dr. Abiel Clement pH (U) 5.0 [pH] Normal 5-9 The [facility] Comment on above: Performed By: #### CARLOS ACERO ####[facility] Xlbwdphcib[address] [place], [place] [address]Dr. Abiel Clement SPEC GRAVITY 1.020 Normal 1.005-<=1.02 5 [facility] Comment on above: Performed By: #### CARLOS ACERO ####[facility] Pkrdymcpfo[address] [place], [place] [address]Dr. Abiel Clement UA PROTEIN Negative Normal NEGATIVE/ TRACE The [facility] Comment on above: Performed By: #### E CARLOS GERMANRO ####[facility] Bozmauusfa[address] [place], [place] [address]Dr. Abiel Clement UR MICRO IND INDICATED Normal [facility] Comment on above: Performed By: #### E NESSA GERMAN ####[facility] Qyuqsvalka04[address] [place], [place] [address]Dr. Abiel Urbano Urobilinogen Qn (U) 0.2 {Keegan'U}/dL Normal 0.2 - 1. 0 [facility] Comment on above: Performed By: #### E NESSA GERMAN ####[facility] Vfpjarfyqp[address] [place], [place] [address]Dr. Abiel Clement ETHANOL (BLD ALC)on 08-04-20 22 ALC NOTE NOTE: 80 mg/dl is th e legal limit for a blood alcohol level Normal [facility] Comment on above: Performed By: #### E TH ####[facility] Adfjwrcipj4[address] [place], [place] [address]Dr. Abiel Clement Ethanol [Mass/Vol] mg/dL Normal [facility] Comment on above: Performed By: #### E TH ####[facility] Udjdriiakm[address] [place], [place] [address]Dr. Abiel Clement INFLUENZA A AND B AGon 08-04 INFLUANEGH SEE BELOW Normal [facility] Comment on above: Result Comment: Nega tive for Flu A protein angiten. Infection due to Flu A cannot be ruled out. Flu A angiten in the sample may be below the detection limit of the test. Performed By: #### I NFLUAB ####[facility] Raokusrurm[address] [place], [place] [address]Dr. Abiel Clement INFLUBNEGH SEE BELOW Normal [facility] Comment on above: Result Comment: Nega tive for Flu B protein antigen. Infection due to Flu B cannot be ruled out. Flu B antigen in the sample may be below the detection limit of the test. Performed By: #### I NFLUAB ####[facility] Xnyahzuoev[address] [place], [place] [address]Dr. Abiel Clement INFLUENZA A AG Negative Normal NEGATIVE SEE COMMENT The [facility] Comment on above: Performed By: #### I NFLUAB ####[facility] Xqwlncpiyb99[address] [place] [address]Dr. Abiel Clement INFLUENZA B AG Negative Normal NEGATIVE SEE COMMENT The [facility] Comment on above: Performed By: #### I NFLUAB ####[facility] Heqhnmgjos1968 [place] [address]Dr. Abiel Clement INTERNAL CONTROLS Within Normal Limits Normal Wi thin Normal Limits The [facility] Comment on above: Performed By: #### I NFLUAB ####[facility] Bjtvhtsfoi[address] [place], [place] [address]Dr. Abiel Clement LACTATE/LACTIC ACIDon 2021 Lactate [Moles/Vol] 2.0 mmol/L Critically high 0.4-1.9 [facility] Comment on above: Performed By: #### L ACT ####[facility] Qqitslaznm[address] [place], [place] [address]Dr. Abiel Clement LIPASEon 08-04-2022 Lipase [Catalytic activity/Vol] 28.0 U/L Critically low 73.0-393.0 [facility] Comment on above: Performed By: #### L IPA, CMP, HSTROPN, TSH ####[facility] Ooygsepipo[address] [place], [place] [address]Dr. Abiel Clement PH VENOUS BLOODon 08-04-2022 PCO2 VENOUS 30.0 mmHg Critically low 40.0-52.0 [facility] Comment on above: Performed By: #### P HVEN ####[facility] Pxycqyrbju1896 [place] [address]Dr. Abiel Clement pH VENOUS 7.509 Critically high 7.330-7.430 [facility] Comment on above: Performed By: #### P HVEN ####[facility] Gebbtwpsmj8569 [place] [address]Dr. Abiel Clement POINT OF CARE GLUCOSEon 07-08 Glucose [Mass/Vol] 230 mg/dL Critically high 74-106 [facility] Comment on above: Performed By: #### P OCGLUC ####[facility] Ogdwhfyhwx8596 [place] [address]Dr. Abiel Clement PROF 14(COMP METB)on 022 Albumin [Mass/Vol] 3.0 g/dL Critically low 3.4-5.0 [facility] Comment on above: Performed By: #### L IPA, CMP, HSTROPN, TSH ####[facility] Eadsjqhyqk1026 [place] [address]Dr. Abiel Clement Albumin/Globulin [Mass ratio] 0.7 {ratio} Normal [facility] Comment on above: Performed By: #### L IPA, CMP, HSTROPN, TSH ####[facility] Bsddmzfjne1365 [place] [address]Dr. Abiel Clement ALP [Catalytic activity/Vol] 196 U/L Critically high 46-116 [facility] Comment on above: Performed By: #### L IPA, CMP, HSTROPN, TSH ####[facility] Wqvatsfaql7051 [place] [address]Dr. Abiel Clement ALT [Catalytic activity/Vol] 21 U/L Normal 14-59 [facility] Comment on above: Performed By: #### L IPA, CMP, HSTROPN, TSH ####[facility] Lvdlcixref1915 [place] [address]Dr. Abiel Clement Anion gap [Moles/Vol] 12.1 mmol/L Normal [facility] Comment on above: Performed By: #### L IPA, CMP, HSTROPN, TSH ####[facility] Agscmjuabb3757 [place] [address]Dr. Abiel Clement AST [Catalytic activity/Vol] 29 U/L Normal 15-37 [facility] Comment on above: Performed By: #### L IPA, CMP, HSTROPN, TSH ####[facility] Tukvrxwwss1504 [place] [address]Dr. Abiel Clement Bilirubin [Mass/Vol] 0.3 mg/dL Normal 0.2-1.0 [facility] Comment on above: Performed By: #### L IPA, CMP, HSTROPN, TSH ####[facility] Eagdqshmml3195 [place] [address]Dr. Abiel Clement Calcium [Mass/Vol] 8.9 mg/dL Normal 8.5-10.1 [facility] Comment on above: Performed By: #### L IPA, CMP, HSTROPN, TSH ####[facility] Cmbaiflpoy5513 [place] [address]Dr. Abiel Clement Chloride [Moles/Vol] 102 mmol/L Normal 98-107 [facility] Comment on above: Performed By: #### L IPA, CMP, HSTROPN, TSH ####[facility] Ymbhfegohn5149 [place] [address]Dr. bAiel Clement CO2 [Moles/Vol] 27.1 mmol/L Normal 21.0-32.0 [facility] Comment on above: Performed By: #### L IPA, CMP, HSTROPN, TSH ####[facility] Zcoyyvbclu[address] [place], [place] [address]Dr. Abiel Clement Creatinine [Mass/Vol] 0.83 mg/dL Normal 0.55-1.02 [facility] Comment on above: Performed By: #### L IPA, CMP, HSTROPN, TSH ####[facility] Urdzeumref7218 [place] [address]Dr. Abiel Clement EGFR-AF TANZANIAN >60 Normal >=60 [facility] Comment on above: Performed By: #### L IPA, CMP, HSTROPN, TSH ####[facility] Ihujczbpzl9188 [place] [address]Dr. Abiel Clement EGFR-NON AF TANZANIAN >60 Normal >=60 [facility] Comment on above: Performed By: #### L IPA, CMP, HSTROPN, TSH ####[facility] Odcoyhrhdj5528 [place] [address]Dr. Abiel Clement Globulin (S) [Mass/Vol] 4.2 g/dL Normal [facility] Comment on above: Performed By: #### L IPA, CMP, HSTROPN, TSH ####[facility] Gtfeirhpmx6950 [place] [address]Dr. Abiel Clement Glucose [Mass/Vol] 132 mg/dL Critically high 74-106 [facility] Comment on above: Performed By: #### L IPA, CMP, HSTROPN, TSH ####[facility] Eodgurlrxh6284 [place] [address]Dr. Abiel Clement Potassium [Moles/Vol] 4.2 mmol/L Normal 3.5-5.1 [facility] Comment on above: Performed By: #### L IPA, CMP, HSTROPN, TSH ####[facility] Xmgfqiuoor1255 [place] [address]Dr. Abiel Clement Protein [Mass/Vol] 7.2 g/dL Normal 6.4-8.2 [facility] Comment on above: Performed By: #### L IPA, CMP, HSTROPN, TSH ####[facility] Djhadumlzy0829 [place] [address]Dr. Abiel Clement Sodium [Moles/Vol] 137 mmol/L Normal 136-145 [facility] Comment on above: Performed By: #### L IPA, CMP, HSTROPN, TSH ####[facility] Uryqaocsjt1293 [place] [address]Dr. Abiel Clement Urea nitrogen [Mass/Vol] 18.0 mg/dL Normal 7.0-18.0 [facility] Comment on above: Performed By: #### L IPA, CMP, HSTROPN, TSH ####[facility] Kwrxojphio0086 [place] [address]Dr. Abiel Clement Urea nitrogen/Creatinine [Mass ratio] 21.7 mg/mg Normal [facility] Comment on above: Performed By: #### L IPA, CMP, HSTROPN, TSH ####[facility] Ripysmvuuj6871 [place] [address]Dr. Abiel Clement PROTIMEon 08-04-2022 INR Coag (PPP) [Relative time] 1.05 {INR} Normal [facility] Comment on above: Performed By: #### P TT, PT ####[facility] Yyswjuujhh1814 [place] [id number]. Abiel Clement INR GUIDELINES SEE BELOW Normal The [facility] Comment on above: Result Comment: GELY RED INR: 2.0 - 3.0 CONDITIONS NOT LISTED BELOW 2.5 - 3.5 FOR PROSTHETIC HEART VALVE REPLACEMENT 2.5 - 3.5 RECURRENT THROMBOSIS Performed By: #### P TT, PT ####[facility] Gllrtzhyla9333 [place] [address]Dr. Abiel Clement PT Coag (PPP) [Time] 11.3 s Normal 9.0-11.6 [facility] Comment on above: Performed By: #### P TT, PT ####[facility] Trykqqrcxj9508 [place] [address]Dr. Abiel Clement PTTon 08-04-2022 aPTT Coag (Bld) [Time] 25.2 s Normal 22.3-36.2 [facility] Comment on above: Performed By: #### P TT, PT ####[facility] Waqktshyke[address] [place], [place] [address]Dr. Abiel Clement TROPONIN, HIGH SENSITIVITYon 08-04-2022 HSTROP 5.0 pg/mL Normal 4.0-51.3 [facility] Comment on above: Result Comment: CUT- OFF POINTS HAVE BEEN ESTABLISHED BASED ON THE FOURTH UNIVERSAL DEFINITIONS OF MYOCARDIALINFARCTION. THE UPPER REFERENCE LIMIT (URL) OF TROPONIN, DEFINED THE 99TH PERCENTILE OFcTnI DISTRIBUTION IN A REFERENCE POPULATION, HAS BEEN CONFIRMED THE DECISION THRESHOLDFOR VA DIAGNOSIS. Performed By: #### L IPA, CMP, HSTROPN, TSH ####[facility] Zpttrgssgx2338 [place] [address]Dr. Abiel Clement TSHon 08-04-2022 TSH 1.695 uIU/mL Normal 0.358-3.740 [facility] Comment on above: Performed By: #### L IPA, CMP, HSTROPN, TSH ####[facility] Avwkxuylmb9794 [place] [address]Dr. Abiel Clement URINE MICROSCOPIC ONLYon BACTERIA MODERATE Abnormal NONE SEEN The [facility] Comment on above: Performed By: #### Krystle GERMAN UMICRO ####[facility] Ykndmfndsf[address] [place], [place] [address]Dr. Abiel Clement Bacteria identified Cx Nom (U) INDICATED Normal [facility] Comment on above: Performed By: #### Krystle GERMAN UMBELGICARO ####[facility] Grarenxiyz2672 [place] [address]Dr. Abiel Clement CAST NONE SEEN Normal NONE SEEN The [facility] Comment on above: Performed By: #### Krystle GERMAN UMICRO ####[facility] Mvzowpyjav6545 [place] [address]Dr. Abiel Clement Crystals LM Nom (Urine sed) NONE SEEN Normal NONE SEEN The [facility] Comment on above: Performed By: #### Krystle GERMAN UMBELGICARO ####[facility] Zpjtbutuyt13[address] [place], [place] [address]Dr. Abiel Clement Epithelial cells LM Ql (Urine sed) FEW Abnormal NONE SEEN /RARE The [facility] Comment on above: Performed By: #### Krystle GERMAN UMICRO ####[facility] Vfsvtwuqqy0[address] [place], [place] [address]Dr. Abiel Clement MUCOUS NONE SEEN Normal NONE SEEN The [facility] Comment on above: Performed By: #### CARLOS ACERO ####[facility] Grnihvsbus023[address] [place], [place] [address]Dr. Abiel Clement RBC 2-5 Abnormal 0-2 [facility] Comment on above: Performed By: #### CARLOS ACERO ####[facility] Bxllrbhfwc7[address] [place], [place] [address]Dr. Abiel Clement WBC 10-20 Abnormal NONE SEEN The [facility] Comment on above: Performed By: #### CARLOS ACERO ####[facility] Nrgwitebvs7[address] [place], [place] [address]Dr. Abiel Clement XR CHEST 1 Von 08-04-2022 XR CHEST 1 V Normal [facility] XR FOOT RT MIN 3 VIEWSon XR FOOT RT MIN 3 VIEWS Normal [facility] CBC AUTO DIFFon 06-03-2022 BASO # 0.0 103/ul Normal 0.0-0.1 [facility] Comment on above: Performed By: #### C BC ####[facility] Bfxylmdotf4944 [place] [address]Dr. Abiel Clement Basophils/100 WBC (Bld) 0.5 % Normal 0.2-2.0 [facility] Comment on above: Performed By: #### C BC ####[facility] Afqkbwgiqz817[address] [place], [place] [address]Dr. Abiel Clement EO # 0.3 103/ul Normal 0.0-0.7 [facility] Comment on above: Performed By: #### C BC ####[facility] Zezhwqasqy[address] [place], [place] [address]Dr. Abiel Clement Eosinophils/100 WBC (Bld) 3.5 % Normal 0.9-7.0 The [facility] Comment on above: Performed By: #### C BC ####[facility] Anyowwbogp07[address] [place], [place] [address]Dr. Abiel Clement Erythrocyte distribution width (RBC) [Ratio] 13.7 % Normal 11.0-15.0 [facility] Comment on above: Performed By: #### C BC ####[facility] Cwhynsalgw[address] [place], [place] [address]Dr. Abiel Clement Hematocrit (Bld) [Volume fraction] 34.2 % Critically low 36.0-48.0 [facility] Comment on above: Performed By: #### C BC ####[facility] Rvkxdkscua8[address] [place], [place] [address]Dr. Abiel Clement Hemoglobin (Bld) [Mass/Vol] 10.5 g/dL Critically low 12.0-16.0 [facility] Comment on above: Performed By: #### C BC ####[facility] Tntoelvezx7[address] [place], [place] [address]Dr. Suyapaviviana Clement IG # 0.02 10e3/ul Normal 0.00-0.03 [facility] Comment on above: Performed By: #### C BC ####[facility] Baqdqidltg1896 [place] [address]Dr. Abiel Clement IG % 0.3 % Normal 0.0-0.5 The [facility] Comment on above: Performed By: #### C BC ####[facility] Ppnpgqgewa8732 [place] [address]Dr. Abiel Clement LYMPH # 1.4 103/ul Normal 1.2-3.8 The [facility] Comment on above: Performed By: #### C BC ####[facility] Jqjesancmx[address] [place], [place] [address]Dr. Abiel Clement Lymphocytes/100 WBC (Bld) 18.5 % Critically low 20.5-60.0 The [facility] Comment on above: Performed By: #### C BC ####[facility] Aqxcnkilhf[address] [place], [place] [address]Dr. Abiel Clement MANUAL DIFF REQ NO Normal The [facility] Comment on above: Performed By: #### C BC ####[facility] Nkmumwuusq300[address] [place], [place] [address]Dr. Suyapaviviana Clement MCH (RBC) [Entitic mass] 27.8 pg Normal 26.7-34.0 The [facility] Comment on above: Performed By: #### C BC ####[facility] Dkqqmtlbwi0384[address] [place], [place] [address]Dr. Abiel Urbano MCHC (RBC) [Mass/Vol] 30.7 g/dL Normal 29.9-35.2 The [facility] Comment on above: Performed By: #### C BC ####[facility] Tbenwufliw[address] [place], [place] [address]DrKasia Clement MCV (RBC) [Entitic vol] 90.5 fL Normal 81.0-99.0 The [facility] Comment on above: Performed By: #### C BC ####[facility] Tnxrzrxbvy[address] [place], [place] [address]DrKasia Clement MONO # 0.7 103/ul Normal 0.3-0.8 The [facility] Comment on above: Performed By: #### C BC ####[facility] Pcbzciugwz[address] [place], [place] [address]Dr. Abiel Clement Monocytes/100 WBC (Bld) 8.5 % Normal 1.7-12.0 The [facility] Comment on above: Performed By: #### C BC ####[facility] Ulybpgntdc8980 [place] [address]Dr. Abiel Clement NEUT # 5.2 103/ul Normal 1.4-6.5 [facility] Comment on above: Performed By: #### C BC ####[facility] Yhbtxbdakm9015 [place] [address]Dr. Abiel Clement Neutrophils/100 WBC (Bld) 68.7 % Normal 43.0-75.0 The [facility] Comment on above: Performed By: #### C BC ####[facility] Jdmbxqrqfl0635 [place] [address]Dr. Abiel Clement Platelet mean volume (Bld) [Entitic vol] 11.0 fL Normal 9.5-13.5 [facility] Comment on above: Performed By: #### C BC ####[facility] Fabweqbnte2165 [place] [address]Dr. Abiel Clement PLT 249 103/ul Normal 150-450 [facility] Comment on above: Performed By: #### C BC ####[facility] Nhogxryhte8506 [place] [address]Dr. Abiel Clement RBC 3.78 106/ul Critically low 4.20-5.40 The [facility] Comment on above: Performed By: #### C BC ####[facility] Qedwzbvran8110 [place] [address]Dr. Abiel Clement WBC 7.6 103/ul Normal 4.0-11.0 The [facility] Comment on above: Performed By: #### C BC ####[facility] Ercgudedzz2244 [place] [address]Dr. Abiel Clement POINT OF CARE GLUCOSEon 05-07 Glucose [Mass/Vol] 84 mg/dL Normal 74-106 [facility] Comment on above: Performed By: #### P OCGLUC ####[facility] Mncdbfhwyn14[address] [place], [place] [address]Dr. Abiel Urbano Glucose [Mass/Vol] 49 mg/dL Critically low 74-106 [facility] Comment on above: Result Comment: Will Repeat Test Performed By: #### P OCGLUC ####[facility] Qzfnoqyacj8895 [place] [address]Dr. Suyapaviviana Clement Glucose [Mass/Vol] 182 mg/dL Critically high 74-106 [facility] Comment on above: Performed By: #### P OCGLUC ####[facility] Frkpzkgmza5718 [place] [address]Dr. Abiel Clement PROF CHEM 8 (BAS METB)on Anion gap [Moles/Vol] 8.5 mmol/L Normal [facility] Comment on above: Performed By: #### B MP ####[facility] Kwdsuntjtu[address] [place], [place] [address]Dr. Abiel Clement Calcium [Mass/Vol] 9.2 mg/dL Normal 8.5-10.1 [facility] Comment on above: Performed By: #### B MP ####[facility] Szmlalzvqv[address] [place], [place] [address]Dr. Abiel Clement Chloride [Moles/Vol] 99 mmol/L Normal 98-107 [facility] Comment on above: Performed By: #### B MP ####[facility] Aveihsgfoj8825[address] [place], [place] [address]Dr. Abiel Clement CO2 [Moles/Vol] 29.5 mmol/L Normal 21.0-32.0 [facility] Comment on above: Performed By: #### B MP ####[facility] Padzaqleua3762 [place] [address]Dr. Abiel Clement Creatinine [Mass/Vol] 0.97 mg/dL Normal 0.55-1.02 [facility] Comment on above: Performed By: #### B MP ####[facility] Atznicjmwz6210 [place] [address]Dr. Abiel Clement EGFR-AF TANZANIAN >60 Normal >=60 [facility] Comment on above: Performed By: #### B MP ####[facility] Pgujsuwybz6642 [place] [address]Dr. Abiel Clement EGFR-NON AF TANZANIAN 58 mL/min/1.73m2 Critically low >=60 [facility] Comment on above: Performed By: #### B MP ####[facility] Caevquvwgx3530 [place] [address]Dr. Abiel Clement Glucose [Mass/Vol] 193 mg/dL Critically high 74-106 [facility] Comment on above: Performed By: #### B MP ####[facility] Ajfjmzzbki0149 [place] [address]Dr. Abiel Clement Potassium [Moles/Vol] 4.0 mmol/L Normal 3.5-5.1 [facility] Comment on above: Performed By: #### B MP ####[facility] Rxmaocylvv3768 [place] [address]Dr. Abiel Clement Sodium [Moles/Vol] 133 mmol/L Critically low 136-145 [facility] Comment on above: Performed By: #### B MP ####[facility] Lergymnqry2[address] [place], [place] [address]Dr. Abiel Clement Urea nitrogen [Mass/Vol] 20.0 mg/dL Critically high 7.0-18.0 [facility] Comment on above: Performed By: #### B MP ####[facility] Suwjsisfkv[address] [place], [place] [address]Dr. Abiel Clement Urea nitrogen/Creatinine [Mass ratio] 20.6 mg/mg Normal [facility] Comment on above: Performed By: #### B MP ####[facility] Ytbthbuuan0111 [place] [address]Dr. Abiel Clement POINT OF CARE GLUCOSEon 05-07 Glucose [Mass/Vol] 62 mg/dL Critically low 74-106 [facility] Comment on above: Performed By: #### P OCGLUC ####[facility] Egfhjtprml9497 [place] [address]Dr. Abiel Clement Glucose [Mass/Vol] 75 mg/dL Normal 74-106 [facility] Comment on above: Performed By: #### P OCGLUC ####[facility] Rwuabukttz7581 [place] [id number]. Abiel Clement Glucose [Mass/Vol] 83 mg/dL Normal 74-106 [facility] Comment on above: Performed By: #### P OCGLUC ####[facility] Jprkaycyqb3946 [place] [id number]. Abiel Clement Glucose [Mass/Vol] 107 mg/dL Critically high 74-106 [facility] Comment on above: Performed By: #### P OCGLUC ####[facility] Mzzhbvyflp[address] [place], [place] [address]Dr. Suyapalan Clement Glucose [Mass/Vol] 140 mg/dL Critically high 74-106 [facility] Comment on above: Performed By: #### P OCGLUC ####[facility] Vsxxmyshwm647[address] [place], [place] [address]Dr. Abiel Clement CBC AUTO DIFFon 06-01-2022 BASO # 0.0 103/ul Normal 0.0-0.1 [facility] Comment on above: Performed By: #### C BC ####[facility] Nujzzwakpv[address] [place], [place] [address]Dr. Abiel Clement Basophils/100 WBC (Bld) 0.3 % Normal 0.2-2.0 [facility] Comment on above: Performed By: #### C BC ####[facility] Fvkwhwamyl73[address] [place], [place] [address]Dr. Abiel Clement EO # 0.2 103/ul Normal 0.0-0.7 [facility] Comment on above: Performed By: #### C BC ####[facility] Jvoqrzahxv32[address] [place], [place] [address]Dr. Abiel Clement Eosinophils/100 WBC (Bld) 1.9 % Normal 0.9-7.0 The [facility] Comment on above: Performed By: #### C BC ####[facility] Anxplqbhrl35[address] [place], [place] [address]Dr. Abiel Clement Erythrocyte distribution width (RBC) [Ratio] 13.8 % Normal 11.0-15.0 [facility] Comment on above: Performed By: #### C BC ####[facility] Aycvlotdmq8629 [place] [address]Dr. Abiel Clement Hematocrit (Bld) [Volume fraction] 37.7 % Normal 36.0-48.0 [facility] Comment on above: Performed By: #### C BC ####[facility] Zzecifhjiw5966 [place] [address]Dr. Abiel Clement Hemoglobin (Bld) [Mass/Vol] 11.7 g/dL Critically low 12.0-16.0 [facility] Comment on above: Performed By: #### C BC ####[facility] Vezwkuiwxc[address] [place], [place] [address]Dr. Abiel Clement IG # 0.03 10e3/ul Normal 0.00-0.03 [facility] Comment on above: Performed By: #### C BC ####[facility] Xfpvmxhfhe[address] [place], [place] [address]Dr. Abiel Clement IG % 0.3 % Normal 0.0-0.5 [facility] Comment on above: Performed By: #### C BC ####[facility] Mdaxjjmxeb[address] [place], [place] [address]Dr. Abiel Clement LYMPH # 1.1 103/ul Critically low 1.2-3.[address] [facility] Comment on above: Performed By: #### C BC ####[facility] Alourcjxgf[address] [place], [place] [address]Dr. Abiel Clement Lymphocytes/100 WBC (Bld) 12.0 % Critically low 20.5-60.0 The [facility] Comment on above: Performed By: #### C BC ####[facility] Zcimbscasv[address] [place], [place] [address]Dr. Abiel Clement MANUAL DIFF REQ NO Normal The [facility] Comment on above: Performed By: #### C BC ####[facility] Qrkofqobvg[address] [place], [place] [address]Dr. Abiel Clement MCH (RBC) [Entitic mass] 27.9 pg Normal 26.7-34.0 The [facility] Comment on above: Performed By: #### C BC ####[facility] Fifdwixrfz[address] [place] [id number]. Abiel Urbano MCHC (RBC) [Mass/Vol] 31.0 g/dL Normal 29.9-35.2 The [facility] Comment on above: Performed By: #### C BC ####[facility] Qewffbrnrt7580 [place] [phone]. Abiel Clement MCV (RBC) [Entitic vol] 89.8 fL Normal 81.0-99.0 The [facility] Comment on above: Performed By: #### C BC ####[facility] Widapydjoz[address] [place], [place] [address]Dr. Abiel Clement MONO # 0.7 103/ul Normal 0.3-0.8 The [facility] Comment on above: Performed By: #### C BC ####[facility] Rzunidllzq[address] [place], [place] [address]Dr. Abiel Clement Monocytes/100 WBC (Bld) 8.0 % Normal 1.7-12.0 The [facility] Comment on above: Performed By: #### C BC ####[facility] Ikibduaequ[address] [place], [place] [address]Dr. Abiel Clement NEUT # 6.9 103/ul Critically high 1.4-6.5 The [facility] Comment on above: Performed By: #### C BC ####[facility] Hgxfitubcc[address] [place], [place] [address]Dr. Abiel Clement Neutrophils/100 WBC (Bld) 77.5 % Critically high 43.0-75.0 The [facility] Comment on above: Performed By: #### C BC ####[facility] Pghdkvkujq[address] [place], [place] [address]Dr. Abiel Clement Platelet mean volume (Bld) [Entitic vol] 11.1 fL Normal 9.5-13.5 The [facility] Comment on above: Performed By: #### C BC ####[facility] Urnyrbxogx[address] [place], [place] [address]Dr. Abiel Clement PLT 276 103/ul Normal 150-450 The [facility] Comment on above: Performed By: #### C BC ####[facility] Rlykzwnbpi6394 [place] [phone]. Abiel Clement RBC 4.20 106/ul Normal 4.20-5.40 [facility] Comment on above: Performed By: #### C BC ####[facility] Xkzprivquy8950 [place] [phone]. Abiel Clement WBC 8.9 103/ul Normal 4.0-11.0 [facility] Comment on above: Performed By: #### C BC ####[facility] Cgohhqrtvk1278 [place] [address]Dr. Abiel Clement POINT OF CARE GLUCOSEon 05-07-2021 Glucose [Mass/Vol] 121 mg/dL Critically high 74-106 [facility] Comment on above: Performed By: #### P OCGLUC ####[facility] Hkirrxwflx7049 [place] [address]Dr. Abiel Clement Glucose [Mass/Vol] 303 mg/dL Critically high 74-106 [facility] Comment on above: Performed By: #### P OCGLUC ####[facility] Jvhhjbfepf9386 [place] [address]Dr. Abiel Clement PROF 14(COMP METB)on 022 Albumin [Mass/Vol] 2.8 g/dL Critically low 3.4-5.0 Th [facility] Comment on above: Performed By: #### C MP ####[facility] Anywoicvfg5367 [place] [address]Dr. Abiel Clement Albumin/Globulin [Mass ratio] 0.7 {ratio} Normal [facility] Comment on above: Performed By: #### C MP ####[facility] Bwrprclzwk2417 [place] [address]Dr. Abiel Clement ALP [Catalytic activity/Vol] 174 U/L Critically high 46-116 [facility] Comment on above: Performed By: #### C MP ####[facility] Ofwjqbgkwx8171 [place] [address]Dr. Abiel Clement ALT [Catalytic activity/Vol] 14 U/L Normal 14-59 [facility] Comment on above: Performed By: #### C MP ####[facility] Flsgvjygus9667 [place] [phone]. Abiel Clement Anion gap [Moles/Vol] 14.2 mmol/L Normal Th [facility] Comment on above: Performed By: #### C MP ####[facility] Thsltrhdew4654 [place] [phone]. Abiel Clement AST [Catalytic activity/Vol] 13 U/L Critically low 15-37 [facility] Comment on above: Performed By: #### C MP ####[facility] Vfltwjwmdd3849 [place] [address]Dr. Abiel Urbano Bilirubin [Mass/Vol] 0.1 mg/dL Critically low 0.2-1.0 [facility] Comment on above: Performed By: #### C MP ####[facility] Uildmtxbvn[address] [place], [place] [address]Dr. Abiel Urbano Calcium [Mass/Vol] 8.9 mg/dL Normal 8.5-10.1 [facility] Comment on above: Performed By: #### C MP ####[facility] Gqcarxwphv[address] [place], [place] [address]Dr. Abiel Urbano Chloride [Moles/Vol] 99 mmol/L Normal 98-107 [facility] Comment on above: Performed By: #### C MP ####[facility] Nepfhqgcas[address] [place], [place] [address]Dr. Abiel Urbano CO2 [Moles/Vol] 27.1 mmol/L Normal 21.0-32.0 [facility] Comment on above: Performed By: #### C MP ####[facility] Asjxevezwz[address] [place], [place] [address]Dr. Abiel Urbano Creatinine [Mass/Vol] 1.19 mg/dL Critically high 0.55-1.02 [facility] Comment on above: Performed By: #### C MP ####[facility] Qlrwbimzxi1481 [place] [address]Dr. Abiel Urbano EGFR-AF TANZANIAN 56 mL/min/1.73m2 Critically low >=60 [facility] Comment on above: Performed By: #### C MP ####[facility] Ypulrpipaq0754 [place] [phone]. Abiel Clement EGFR-NON AF TANZANIAN 46 mL/min/1.73m2 Critically low >=60 [facility] Comment on above: Performed By: #### C MP ####[facility] Elhfdzktec7173 [place] [phone]. Abiel Clement Globulin (S) [Mass/Vol] 4.0 g/dL Normal [facility] Comment on above: Performed By: #### C MP ####[facility] Zrtgyclreb9597 [place] [phone]. Abiel Clement Glucose [Mass/Vol] 148 mg/dL Critically high 74-106 [facility] Comment on above: Performed By: #### C MP ####[facility] Kuvcjdpgnj4650 [place] [address]Dr. Abiel Urbano Potassium [Moles/Vol] 4.3 mmol/L Normal 3.5-5.1 [facility] Comment on above: Performed By: #### C MP ####[facility] [address] [place], [place] [address]Dr. Abiel Clement Protein [Mass/Vol] 6.8 g/dL Normal 6.4-8.2 [facility] Comment on above: Performed By: #### C MP ####[facility] Qlzalzebhg9278 [place] [address]Dr. Abiel Clement Sodium [Moles/Vol] 136 mmol/L Normal 136-145 [facility] Comment on above: Performed By: #### C MP ####[facility] Xremmhxbxr0546 [place] [address]Dr. Abiel Clement Urea nitrogen [Mass/Vol] 25.0 mg/dL Critically high 7.0-18.0 [facility] Comment on above: Performed By: #### C MP ####[facility] Iltkzxqrus8949 [place] [address]Dr. Abiel Clement Urea nitrogen/Creatinine [Mass ratio] 21.0 mg/mg Normal [facility] Comment on above: Performed By: #### C MP ####[facility] Ktfwwrueqp3859 [place] [address]Dr. Abiel Clement XR CHEST 1 Von 06-01-2022 XR CHEST 1 V Normal The [facility] POINT OF CARE GLUCOSEon 05-07 Glucose [Mass/Vol] 195 mg/dL Critically high -106 [facility] Comment on above: Performed By: #### P OCGLUC ####[facility] Wunslsqfwk6185 [place] [address]Dr. Abiel Clement Glucose [Mass/Vol] 236 mg/dL Critically high -106 [facility] Comment on above: Performed By: #### P OCGLUC ####[facility] Hxnojpwdym[address] [place] [address]Dr. Abiel Clement Glucose [Mass/Vol] 169 mg/dL Critically high [facility]106 [facility] Comment on above: Performed By: #### P OCGLUC ####[facility] Omypuacrrz8619 [place] [address]Dr. Abiel Clement Glucose [Mass/Vol] 162 mg/dL Critically high [facility]106 [facility] Comment on above: Performed By: #### P OCGLUC ####[facility] Zmddzwvxxv[address] [place], [place] [address]Dr. Abiel Clement XR FOOT RT MIN 3 VIEWSon XR FOOT RT MIN 3 VIEWS Normal The [facility] Covid-19 PCR (CVDTB)on 05-07 SARS-CoV-2 (COVID-19) RNA CLARIBEL+probe Ql (Unsp spec) Not detected Normal NOT DETECTED The [facility] Comment on above: Result Comment: This test is not yet approved or cleared by the [place] FDA. When there are no FDA-approved or cleared tests available, and other criteria are met, FDA can make tests available under an emergency access mechanism called an Emergency Use Authorization (EUA). The EUA for this test is supported by the [place] of Health and Human Service's (HHS's) declaration [...] symptomsconsistent with SARS-CoV-2. Performed By: #### C VDTB ####[facility] Vporbkoomx5681 [place] [address]Dr. Abiel Clement PROF CHEM 8 (BAS METB)on Anion gap [Moles/Vol] 11.8 mmol/L Normal [facility] Comment on above: Performed By: #### B MP ####[facility] Apzermspoi5[address] [place], [place] [address]Dr. Abiel Clement Calcium [Mass/Vol] 9.1 mg/dL Normal 8.5-10.1 [facility] Comment on above: Performed By: #### B MP ####[facility] Naxzkznwis[address] [place], [place] [address]Dr. Abiel Clement Chloride [Moles/Vol] 104 mmol/L Normal 98-107 [facility] Comment on above: Performed By: #### B MP ####[facility] Lvqxinqnen[address] [place], [place] [address]Dr. Abiel Clement CO2 [Moles/Vol] 27.6 mmol/L Normal 21.0-32.0 The [facility] Comment on above: Performed By: #### B MP ####[facility] Pbwknlcvmz[address] [place], [place] [address]Dr. Abiel Clement Creatinine [Mass/Vol] 0.89 mg/dL Normal 0.55-1.02 [facility] Comment on above: Performed By: #### B MP ####[facility] Qhqyhlawmc[address] [place], [place] [address]Dr. Abiel Clement EGFR-AF TANZANIAN >60 Normal >=60 [facility] Comment on above: Performed By: #### B MP ####[facility] Hzewnfkcjb3455 [place] [phone]. Abiel Clement EGFR-NON AF TANZANIAN >60 Normal >=60 The [facility] Comment on above: Performed By: #### B MP ####[facility] Srhtazcpfe0835 [place] [address]Dr. Abiel Clement Glucose [Mass/Vol] 83 mg/dL Normal 74-106 [facility] Comment on above: Performed By: #### B MP ####[facility] Stkmbmhmut5891 [place] [phone]. Suyapaviviana Clement Potassium [Moles/Vol] 4.4 mmol/L Normal 3.5-5.1 The [facility] Comment on above: Performed By: #### B MP ####[facility] Epsrfyttta0375 [place] [address]Dr. Abiel Clement Sodium [Moles/Vol] 139 mmol/L Normal 136-145 [facility] Comment on above: Performed By: #### B MP ####[facility] Nrzyujklvs4482 [place] [address]Dr. Abiel Clement Urea nitrogen [Mass/Vol] 18.0 mg/dL Normal 7.0-18.0 The [facility] Comment on above: Performed By: #### B MP ####[facility] Liihazjkdd3069 [place] [address]Dr. Suyapaviviana Urbano Urea nitrogen/Creatinine [Mass ratio] 20.2 mg/mg Normal The [facility] Comment on above: Performed By: #### B MP ####[facility] Hnasfywsex[address] [place], [place] [address]Dr. Abiel Urbano CT CSPINE WO CONon 2 CT CSPINE WO CON Normal The [facility] CT HEAD WO CONon 05-19-2022 CT HEAD WO CON Normal The [facility] XR HIP RT 2 3V W PELVISon XR HIP RT 2 3V W PELVIS Normal The [facility] CT FOOT RT WO CONon 05-13-20 CT FOOT RT WO CON Normal The [facility] BLOOD CULTURE ID PANELon A. baumannii Not detected Normal NOT DETECTED The [facility] Comment on above: Performed By: #### B CID2 ####[facility] Aldkrvjqef3677 [place] [phone]. Yiviviana Clement Bacteriodes fragilis Not detected Normal NOT DETECTED The [facility] Comment on above: Performed By: #### B CID2 ####[facility] Domarkugko6470 [place] [phone]. Yilan Clement BCID CONTROLS PASSED Normal The [facility] Comment on above: Performed By: #### B CID2 ####[facility] Nursdiwjia5499 [place] [phone]. Yiviviana Clement BCIDBTHD BLOOD CULTURE BOTTLE INFORMATION [place] The [facility] Comment on above: Performed By: #### B CID2 ####[facility] Fxogadmgpv9880 [place] [address]Dr. Yiviviana Clement BCIDHD1 ANTIMICROBIAL RESISTANCE GENES Normal [facility] Comment on above: Performed By: #### B CID2 ####[facility] Amjqhrcpnu5069 [place] [address]Dr. Yilan Clement BCIDHD2 SEE BELOW [facility] Comment on above: Result Comment: Note : Antimicrobial resitance can occur via multiple mechanisms. A Not Detected result for the [employer] antomicrobial resistance gene assays does not indicate antimicrobial susceptibility. Subculturing is required for species identification and susceptibility testing of isolates. Performed By: #### B CID2 ####[facility] Enssdoytfk7245 [place] [address]Dr. Yiviviana Clement BCIDHD[address] [facility] Comment on above: Performed By: #### B CID2 ####[facility] Jpprdsswnk8586 [place] [address]Dr. Yilan Clement BCIDHD4 Negative Normal The [facility] Comment on above: Performed By: #### B CID2 ####[facility] Plwftaxnqp5074 [place] [address]Dr. Yiviviana Clement BCIDHD5 YEAST Normal The [facility] Comment on above: Performed By: #### B CID2 ####[facility] Bozvokplvd2439 [place] [address]Dr. Yilan Clement Bottle Set: Set 1 Normal The [facility] Comment on above: Performed By: #### B CID2 ####[facility] Itjyggqdns7511 [place] [address]Dr. Abiel Clement Bottle: Aerobic Normal The [facility] Comment on above: Performed By: #### B CID2 ####[facility] Bivesqasvv0192 [place] [address]Dr. Abiel Clement C. neoformans/gattii Not detected Normal NOT DETECTED The [facility] Comment on above: Performed By: #### B CID2 ####[facility] Ftehyrvnzv[address] [place], [place] [address]Dr. Abiel Clement Sakshi albicans Not detected Normal NOT DETECTED The [facility] Comment on above: Performed By: #### B CID2 ####[facility] Yqjmciinor[address] [place], [place] [address]Dr. Abiel Clement Sakshi auris Not detected Normal NOT DETECTED The [facility] Comment on above: Performed By: #### B CID2 ####[facility] Ahyimwvyfg[address] [place], [place] [address]Dr. Abiel [facility] Sakshi glabrata Not detected Normal NOT DETECTED The [facility] Comment on above: Performed By: #### B CID2 ####[facility] Kaesxpqavq5[address] [place], [place] [address]Dr. Abiel Clement Sakshi Krusei Not detected Normal NOT DETECTED [facility] Comment on above: Performed By: #### B CID2 ####[facility] Lezmlyccjj27[address] [place], [place] [address]Dr. Abiel Clement Sakshi Parapsilosis Not detected Normal NOT DETECTED The [facility] Comment on above: Performed By: #### B CID2 ####[facility] Mevcyugpua144[address] [place], [place] [address]Dr. Abiel Clement Sakshi Tropicalis Not detected Normal NOT DETECTED [facility] Comment on above: Performed By: #### B CID2 ####[facility] Uhcgbvhtfu50[address] [place], [place] [address]Dr. Abiel Clement CTX-M Resistant Gene Not Applicable Normal NOT DETECTE D [facility] Comment on above: Performed By: #### B CID2 ####[facility] Jcmaunmsdy2485 [place] [address]Dr. Abiel Clement E. Cloacae complex Not detected Normal NOT DETECTED [facility] Comment on above: Performed By: #### B CID2 ####[facility] Jhtnvxtlqo90[address] [place], [place] [address]Dr. Abiel Clement E. faecalis Not detected Normal NOT DETECTED The [facility] Comment on above: Performed By: #### B CID2 ####[facility] Fdhywbdlgz7[address] [place], [place] [address]Dr. Abiel Clement E. faecium Not detected Normal NOT DETECTED The [facility] Comment on above: Performed By: #### B CID2 ####[facility] Ewgcudivqe[address] [place], [place] [address]Dr. Abiel Clement Enterobacteriaceae Not detected Normal NOT DETECTED [facility] Comment on above: Performed By: #### B CID2 ####[facility] Eaxkqtaveh[address] [place], [place] [address]Dr. Abiel Clement Escherichia coli Not detected Normal NOT DETECTED The [facility] Comment on above: Performed By: #### B CID2 ####[facility] Xhrafrqxhm33[address] [place], [place] [address]Dr. Abiel Clement H. influenzae Not detected Normal NOT DETECTED The [facility] Comment on above: Performed By: #### B CID2 ####[facility] Ujbxpfbmce75[address] [place], [place] [address]Dr. Abiel Clement IMP Resistant Gene Not Applicable Normal NOT DETECTED The [facility] Comment on above: Performed By: #### B CID2 ####[facility] Gprzwaihox[address] [place], [place] [address]Dr. Abiel Clement K. oxytoca Not detected Normal NOT DETECTED The [facility] Comment on above: Performed By: #### B CID2 ####[facility] Zufiumjfso169[address] [place], [place] [address]Dr. Abiel Clement K. pneumoniae Not detected Normal NOT DETECTED The [facility] Comment on above: Performed By: #### B CID2 ####[facility] Aybiwkgelf7545 [place] [phone]. Abiel Clement Klebsiella aerogenes Not detected Normal NOT DETECTED The [facility] Comment on above: Performed By: #### B CID2 ####[facility] Erpopibueo7167[address] [place], [place] [address]Dr. Abiel Clement KPC Resistant Gene Not detected Normal NOT DETECTED [facility] Comment on above: Performed By: #### B CID2 ####[facility] Gclsssovep[address] [place], [place] [address]Dr. Abiel Clement List. monocytogenes Not detected Normal NOT DETECTED [facility] Comment on above: Performed By: #### B CID2 ####[facility] Dwgesbddln[address] [place], [place] [address]Dr. Abiel Clement Mcr-1 Resistant Gene Not Applicable Normal NOT DETECTE D [facility] Comment on above: Performed By: #### B CID2 ####[facility] Psdwctyawk[address] [place], [place] [address]Dr. Abiel Clement mecA/C Not Applicable Normal NOT DETECTED The [facility] Comment on above: Performed By: #### B CID2 ####[facility] Rekidsvpst[address] [place], [place] [address]Dr. Abiel Clement mecA/C MREJ Not Applicable Normal NOT DETECTED The [facility] Comment on above: Performed By: #### B CID2 ####[facility] Grpylotfrr7125[address] [place], [place] [address]Dr. Abiel Clement N. meningitidis Not detected Normal NOT DETECTED The [facility] Comment on above: Performed By: #### B CID2 ####[facility] Tnlhgmgikp2174[address] [place], [place] [address]Dr. Abiel Clement NDM Resistant Gene Not Applicable Normal NOT DETECTED The [facility] Comment on above: Performed By: #### B CID2 ####[facility] Opcjlcdhuc9[address] [place], [place] [address]Dr. Abiel Clement Oxa-48-like Not Applicable Normal NOT DETECTED The [facility] Comment on above: Performed By: #### B CID2 ####[facility] Yprqwouvuw[address] [place], [place] [address]Dr. Abiel Clement Proteus Not detected Normal NOT DETECTED The [facility] Comment on above: Performed By: #### B CID2 ####[facility] Uakehmhveq64[address] [place], [place] [address]Dr. Abiel Clement Pseud. aeruginosa Not detected Normal NOT DETECTED [facility] Comment on above: Performed By: #### B CID2 ####[facility] Vunbziifcl4[address] [place], [place] [address]Dr. Abiel Clement S. maltophilia Not detected Normal NOT DETECTED [facility] Comment on above: Performed By: #### B CID2 ####[facility] Pqgevgflhw[address] [place], [place] [address]Dr. Abiel Clement Salmonella Not detected Normal NOT DETECTED The [facility] Comment on above: Performed By: #### B CID2 ####[facility] Wlrnxeycul06[address] [place], [place] [address]Dr. Abiel Clement Seratia marcescens Not detected Normal NOT DETECTED [facility] Comment on above: Performed By: #### B CID2 ####[facility] [facility] Oasxxxjdjy[address] [place], [place] [address]Dr. Abiel Clement Site: R A/c Normal The [facility] Comment on above: Performed By: #### B CID2 ####[facility] Rqiqrbbgnc[address] [place], [place] [address]Dr. Abiel Clement Staph. aureus Not detected Normal NOT DETECTED The [facility] Comment on above: Performed By: #### B CID2 ####[facility] Vprsjprqxo[address] [place], [place] [address]Dr. Abiel Clement Staph. epidermidis Not detected Normal NOT DETECTED [facility] Comment on above: Performed By: #### B CID2 ####[facility] Grtfzmvpoq[address] [place], [place] [address]Dr. Abiel Clement Staph. lugdunensis Not detected Normal NOT DETECTED [facility] Comment on above: Performed By: #### B CID2 ####[facility] Egprhupnkx94[address] [place], [place] [address]Dr. Abiel Clement Staphylococcus Not detected Normal NOT DETECTED The [facility] Comment on above: Performed By: #### B CID2 ####[facility] Qqgouevbvs[address] [place], [place] [address]Dr. Abiel Clement Strep. agalactiae Not detected Normal NOT DETECTED The [facility] Comment on above: Performed By: #### B CID2 ####[facility] Vnoimksbni[address] [place], [place] [address]Dr. Abiel Clement Strep. pneumoniae Not detected Normal NOT DETECTED The [facility] Comment on above: Performed By: #### B CID2 ####[facility] Xemjgwkxcm[address] [place], [place] [address]Dr. Abiel Clement Strep. pyogenes Not detected Normal NOT DETECTED The [facility] Comment on above: Performed By: #### B CID2 ####[facility] Kpbxvmlnae[address] [place], [place] [address]Dr. Abiel Clement Streptococcus Detected Abnormal NOT DETECTED The [facility] Comment on above: Performed By: #### B CID2 ####[facility] Ansreklbdg[address] [place], [place] [address]Dr. Abiel Clement Jarvis/B Resist. Gene Not detected Normal NOT DETECTED [facility] Comment on above: Performed By: #### B CID2 ####[facility] Boqegmzmtj[address] [place], [place] [address]Dr. Abiel Clement VIM Resistant Gene Not Applicable Normal NOT DETECTED The [facility] Comment on above: Performed By: #### B CID2 ####[facility] Hlwzbmtciz9[address] [place], [place] [address]Dr. Abiel Clement BNPon 04-30-2022 Natriuretic peptide B (Bld) [Mass/Vol] 127.0 pg/mL Normal <=900.0 The [facility] Comment on above: Performed By: #### B PEDIATRICIAN MANAGING PARTNER, CMP, HSTROPN ####[facility] Nhqfhapots[address] [place], [place] [address]Dr. Abiel Clement CBC AUTO DIFFon 04-30-2022 BASO # 0.1 103/ul Normal 0.0-0.1 [facility] Comment on above: Performed By: #### C BC ####[facility] Ieefpemf[address] [place] [id number]. Abiel Clement Basophils/100 WBC (Bld) 0.6 % Normal 0.2-2.0 The [facility] Comment on above: Performed By: #### C BC ####[facility] [address] [place], [place] [address]Dr. Abiel Clement EO # 0.3 103/ul Normal 0.0-0.7 The [facility] Comment on above: Performed By: #### C BC ####[facility] Xxrgwgppqk9[address] [place], [place] [address]Dr. Abiel Clement Eosinophils/100 WBC (Bld) 2.8 % Normal 0.9-7.0 The [facility] Comment on above: Performed By: #### C BC ####[facility] Essqnbohct[address] [place], [place] [address]Dr. Abiel Clement Erythrocyte distribution width (RBC) [Ratio] 12.9 % Normal 11.0-15.0 [facility] Comment on above: Performed By: #### C BC ####[facility] [address]sw[address] [place], [place] [address]Dr. Abiel Clement Hematocrit (Bld) [Volume fraction] 38.7 % Normal 36.0-48.0 [facility] Comment on above: Performed By: #### C BC ####[facility] U[address] [place], [place] [address]Dr. Abiel Clement Hemoglobin (Bld) [Mass/Vol] 12.5 g/dL Normal 12.0-16.0 The [facility] Comment on above: Performed By: #### C BC ####[facility] Uxbyfgwnqo[address] [place], [place] [address]Dr. Abiel Clement IG # 0.03 10e3/ul Normal 0.00-0.03 The [facility] Comment on above: Performed By: #### C BC ####[facility] Ovpzxrvkrm[address] [place], [place] [address]Dr. Abiel Clement IG % 0.3 % Normal 0.0-0.5 The [facility] Comment on above: Performed By: #### C BC ####[facility] Zeifvadoau[address] [place] [id number]. Abiel Urbano LYMPH # 1.6 103/ul Normal 1.2-3.8 [facility] Comment on above: Performed By: #### C BC ####[facility] Bszpaynfsy28[address] [place] [phone]. Suyapaviviana Clement Lymphocytes/100 WBC (Bld) 15.0 % Critically low 20.5-60.0 [facility] Comment on above: Performed By: #### C BC ####[facility] Sazdpufuxh5[address] [place] [phone]. Abiel Clement MANUAL DIFF REQ NO Normal [facility] Comment on above: Performed By: #### C BC ####[facility] Uhopvhibhw5887 [place] [phone]. Abiel Clement MCH (RBC) [Entitic mass] 28.9 pg Normal 26.7-34.0 [facility] Comment on above: Performed By: #### C BC ####[facility] Ufwnqraqmj5846 [place] [phone]. Abiel Urbano MCHC (RBC) [Mass/Vol] 32.3 g/dL Normal 29.9-35.2 [facility] Comment on above: Performed By: #### C BC ####[facility] Rrmesmnifj0275 [place] [phone]. Abiel Clement MCV (RBC) [Entitic vol] 89.6 fL Normal 81.0-99.0 [facility] Comment on above: Performed By: #### C BC ####[facility] Fiemscsszh1763 [place] [phone]. Abiel Clement MONO # 0.8 103/ul Normal 0.3-0.8 The [facility] Comment on above: Performed By: #### C BC ####[facility] Bhuxevyuqj[address] [place] [phone]. Abiel Clement Monocytes/100 WBC (Bld) 7.2 % Normal 1.7-12.0 [facility] Comment on above: Performed By: #### C BC ####[facility] Zkluqfdmpp4470 [place] [phone]. Abiel Clement NEUT # 7.9 103/ul Critically high 1.4-6.5 [facility] Comment on above: Performed By: #### C BC ####[facility] Euojiwkvrn8569 [place] [phone]. Abiel Clement Neutrophils/100 WBC (Bld) 74.1 % Normal 43.0-75.0 The [facility] Comment on above: Performed By: #### C BC ####[facility] Hslpgimuit2712 [place] [phone]. Abiel Clement Platelet mean volume (Bld) [Entitic vol] 10.9 fL Normal 9.5-13.5 The [facility] Comment on above: Performed By: #### C BC ####[facility] Pvrevbrqvx5[address] [place] [address]Dr. Abiel Clement PLT 308 103/ul Normal 150-450 The [facility] Comment on above: Performed By: #### C BC ####[facility] Bixbjwjgfb6873 [place] [phone]. Abiel Clement RBC 4.32 106/ul Normal 4.20-5.40 The [facility] Comment on above: Performed By: #### C BC ####[facility] Zgwlcgdecq3104 [place] [phone]. Abiel Clement WBC 10.6 103/ul Normal 4.0-11.0 The [facility] Comment on above: Performed By: #### C BC ####[facility] R[address] [place], [place] [address]Dr. Abiel Clement Covid-19 PCR (CVDTB)on 04-06 SARS-CoV-2 (COVID-19) RNA CLARIBEL+probe Ql (Unsp spec) Not detected Normal NOT DETECTED The [facility] Comment on above: Result Comment: When diagnostic [...] for this test is supported by the Needle Loom Tender of Health and Human Service's declaration that [...] longer be used). Performed By: #### C VDTB ####[facility] Weds[address]rj[address] [place], [place] [address]Dr. Abiel Clement LACTATE/LACTIC ACIDon 2021 Lactate [Moles/Vol] 2.3 mmol/L Critically high 0.4-1.9 [facility] Comment on above: Performed By: #### L ACT ####[facility] Mqrlcnwgvj[address] [place], [place] [address]Dr. Abiel Clement Lactate [Moles/Vol] 3.3 mmol/L Critically high 0.4-1.9 [facility] Comment on above: Performed By: #### L ACT ####[facility] Dmarcdrtrt[address] [place], [place] [address]Dr. Abiel Clement PROF 14(COMP METB)on 022 Albumin [Mass/Vol] 3.0 g/dL Critically low 3.4-5.0 Th [facility] Comment on above: Performed By: #### B PEDIATRICIAN MANAGING PARTNER, CMP, HSTROPN ####[facility] Vndisgqqtz[address] [place] [address]Dr. Abiel Clement Albumin/Globulin [Mass ratio] 0.7 {ratio} Normal The [facility] Comment on above: Performed By: #### B PEDIATRICIAN MANAGING PARTNER, CMP, HSTROPN ####[facility] Xhspaqyxvz28[address] [place] [address]Dr. Abiel Clement ALP [Catalytic activity/Vol] 218 U/L Critically high 46-116 The [facility] Comment on above: Performed By: #### B PEDIATRICIAN MANAGING PARTNER, CMP, HSTROPN ####[facility] Epujydxxsb55[address] [place] [address]Dr. Abiel Clement ALT [Catalytic activity/Vol] 29 U/L Normal 14-59 [facility] Comment on above: Performed By: #### B PEDIATRICIAN MANAGING PARTNER, CMP, HSTROPN ####[facility] Eyrgnlsirt2157 [place] [address]Dr. Abiel Clement Anion gap [Moles/Vol] 14.3 mmol/L Normal Th e [facility] Comment on above: Performed By: #### B PEDIATRICIAN MANAGING PARTNER, CMP, HSTROPN ####[facility] Weurwnyyet[address] [place], [place] [address]Dr. Abiel Clement AST [Catalytic activity/Vol] 20 U/L Normal 15-37 [facility] Comment on above: Performed By: #### B PEDIATRICIAN MANAGING PARTNER, CMP, HSTROPN ####[facility] Bqmqcjigio[address] [place], [place] [address]Dr. Abiel Clement Bilirubin [Mass/Vol] 0.3 mg/dL Normal 0.2-1.0 The [facility] Comment on above: Performed By: #### B PEDIATRICIAN MANAGING PARTNER, CMP, HSTROPN ####[facility] Neencaumtg[address] [place], [place] [address]Dr. Abiel Clement Calcium [Mass/Vol] 9.2 mg/dL Normal 8.5-10.1 [facility] Comment on above: Performed By: #### B PEDIATRICIAN MANAGING PARTNER, CMP, HSTROPN ####[facility] Khonyrbyvg[address]23 [place] [address]Dr. Abiel Clement Chloride [Moles/Vol] 98 mmol/L Normal 98-107 The [facility] Comment on above: Performed By: #### B PEDIATRICIAN MANAGING PARTNER, CMP, HSTROPN ####[facility] Ghajxxqmub[address]409 [place] [address]Dr. Abiel Clement CO2 [Moles/Vol] 26.5 mmol/L Normal 21.0-32.0 The [facility] Comment on above: Performed By: #### B PEDIATRICIAN MANAGING PARTNER, CMP, HSTROPN ####[facility] Anqvsazcmh[address] [place] [address]Dr. Abiel Clement Creatinine [Mass/Vol] 1.10 mg/dL Critically high 0.55-1.02 [facility] Comment on above: Performed By: #### B PEDIATRICIAN MANAGING PARTNER, CMP, HSTROPN ####[facility] Odrkpnvasj18[address] [place] [address]Dr. Abiel Clement EGFR-AF TANZANIAN >60 Normal >=60 [facility] Comment on above: Performed By: #### B PEDIATRICIAN MANAGING PARTNER, CMP, HSTROPN ####[facility] Qxezxnsvtr26[address] [place] [address]Dr. Abiel Clement EGFR-NON AF TANZANIAN 50 mL/min/1.73m2 Critically low >=60 The [facility] Comment on above: Performed By: #### B PEDIATRICIAN MANAGING PARTNER, CMP, HSTROPN ####[facility] Jslptomzie[address] [place] [address]Dr. Abiel Clement Globulin (S) [Mass/Vol] 4.3 g/dL Normal [facility] Comment on above: Performed By: #### B PEDIATRICIAN MANAGING PARTNER, CMP, HSTROPN ####[facility] Rkpeusupnl[address] [place], [place] [address]Dr. Abiel Clement Glucose [Mass/Vol] 338 mg/dL Critically high 74-106 [facility] Comment on above: Performed By: #### B PEDIATRICIAN MANAGING PARTNER, CMP, HSTROPN ####[facility] Ossqqjbytw[address] [place] [address]Dr. Abiel Clement Potassium [Moles/Vol] 3.8 mmol/L Normal 3.5-5.1 [facility] Comment on above: Performed By: #### B PEDIATRICIAN MANAGING PARTNER, CMP, HSTROPN ####[facility] Enloknqhwj[address] [place], [place] [address]Dr. Abiel Clement Protein [Mass/Vol] 7.3 g/dL Normal 6.4-8.2 The [facility] Comment on above: Performed By: #### B PEDIATRICIAN MANAGING PARTNER, CMP, HSTROPN ####[facility] [address]uxfxtwbyp[address] [place], [place] [address]Dr. Abiel Clement Sodium [Moles/Vol] 135 mmol/L Critically low 136-145 Th e [facility] Comment on above: Performed By: #### B PEDIATRICIAN MANAGING PARTNER, CMP, HSTROPN ####[facility] Ddcnaukgtv5936 [place] [address]Dr. Abiel Clement Urea nitrogen [Mass/Vol] 23.0 mg/dL Critically high 7.0-18.0 [facility] Comment on above: Performed By: #### B PEDIATRICIAN MANAGING PARTNER, CMP, HSTROPN ####[facility] Vybbzubsag[address] [place] [address]Dr. Suyapaviviana Clement Urea nitrogen/Creatinine [Mass ratio] 20.9 mg/mg Normal [facility] Comment on above: Performed By: #### B PEDIATRICIAN MANAGING PARTNER, CMP, HSTROPN ####[facility] Pagdgicijl[address] [place] [address]Dr. Abiel Urbano TROPONIN, HIGH SENSITIVITYon 04-30-2022 HSTROP 3.8 pg/mL Critically low 4.0-51.[address] [facility] Comment on above: Result Comment: CUT- OFF POINTS HAVE BEEN ESTABLISHED BASED ON THE FOURTH UNIVERSAL DEFINITIONS OF MYOCARDIALINFARCTION. THE UPPER REFERENCE LIMIT (URL) OF TROPONIN, DEFINED THE 99TH PERCENTILE OFcTnI DISTRIBUTION IN A REFERENCE POPULATION, HAS BEEN CONFIRMED THE DECISION THRESHOLDFOR VA DIAGNOSIS. Performed By: #### H STROPN ####[facility] Hejgphgdfl8331 [place] [address]Dr. Abiel Clement HSTROP 4.0 pg/mL Normal 4.0-51.3 [facility] Comment on above: Result Comment: CUT- OFF POINTS HAVE BEEN ESTABLISHED BASED ON THE FOURTH UNIVERSAL DEFINITIONS OF MYOCARDIALINFARCTION. THE UPPER REFERENCE LIMIT (URL) OF TROPONIN, DEFINED THE 99TH PERCENTILE OFcTnI DISTRIBUTION IN A REFERENCE POPULATION, HAS BEEN CONFIRMED THE DECISION THRESHOLDFOR VA DIAGNOSIS. Performed By: #### B PEDIATRICIAN MANAGING PARTNER, CMP, HSTROPN ####[facility] Kstknasroi[address] [place] [address]Dr. Abiel Urbano XR CHEST 1 Von 04-30-2022 XR CHEST 1 V Normal The [facility] BNPon 03-15-2022 Natriuretic peptide B (Bld) [Mass/Vol] 2586.0 pg/mL Critically high <=900.0 The [facility] Comment on above: Result Comment: repe ated Performed By: #### C MP, BNP, HSTROPN ####[facility] Fjxqkumrfe[address] [place] [address]Dr. Abiel Urbano CBC AUTO DIFFon 03-15-2022 BASO # 0.0 103/ul Normal 0.0-0.1 The [facility] Comment on above: Performed By: #### C BC ####[facility] Xhtottjhon[address] [place], [place] [address]Dr. Abiel Clement Basophils/100 WBC (Bld) 0.4 % Normal 0.2-2.0 The [facility] Comment on above: Performed By: #### C BC ####[facility] Mpcwuxfrql[address] [place], [place] [address]Dr. Abiel Clement EO # 0.1 103/ul Normal 0.0-0.7 The [facility] Comment on above: Performed By: #### C BC ####[facility] Xpyrmywz[address] [place], [place] [address]Dr. Abiel Clement Eosinophils/100 WBC (Bld) 1.8 % Normal 0.9-7.0 The [facility] Comment on above: Performed By: #### C BC ####[facility] Tehalovvbm[address] [place], [place] [address]Dr. Abiel Clement Erythrocyte distribution width (RBC) [Ratio] 13.7 % Normal 11.0-15.0 The [facility] Comment on above: Performed By: #### C BC ####[facility] Uudfkttsif[address] [place], [place] [address]Dr. Abiel Clement Hematocrit (Bld) [Volume fraction] 29.7 % Critically low 36.0-48.0 The [facility] Comment on above: Performed By: #### C BC ####[facility] Jerxsffpwf19[address] [place], [place] [address]Dr. Abiel Clement Hemoglobin (Bld) [Mass/Vol] 9.5 g/dL Critically low 12.0-16.0 The [facility] Comment on above: Performed By: #### C BC ####[facility] Ammsvufslm6508 [place] [phone]. Abiel Clement IG # 0.02 10e3/ul Normal 0.00-0.03 [facility] Comment on above: Performed By: #### C BC ####[facility] Ijpiauzrom5681 [place] [phone]. Abiel Clement IG % 0.3 % Normal 0.0-0.5 [facility] Comment on above: Performed By: #### C BC ####[facility] Qwrptvbhxl8764 [place] [address]Dr. Abiel Clement LYMPH # 1.6 103/ul Normal 1.2-3.8 [facility] Comment on above: Performed By: #### C BC ####[facility] Ewjxedwteq9950 [place] [address]Dr. Abiel Clement Lymphocytes/100 WBC (Bld) 20.1 % Critically low 20.5-60.0 [facility] Comment on above: Performed By: #### C BC ####[facility] Lqdfbvfbzj4594 [place] [address]Dr. Abiel Clement MANUAL DIFF REQ NO Normal [facility] Comment on above: Performed By: #### C BC ####[facility] Tybrveemyd1899 [place] [phone]. Abiel Clement MCH (RBC) [Entitic mass] 29.6 pg Normal 26.7-34.0 [facility] Comment on above: Performed By: #### C BC ####[facility] Rqxzkhjuiw2954 [place] [phone]. Abiel Clement MCHC (RBC) [Mass/Vol] 32.0 g/dL Normal 29.9-35.2 The [facility] Comment on above: Performed By: #### C BC ####[facility] Mvacgjeztq7595 [place] [address]Dr. Abiel Clement MCV (RBC) [Entitic vol] 92.5 fL Normal 81.0-99.0 [facility] Comment on above: Performed By: #### C BC ####[facility] Lvqnowqsmf9965 [place] [phone]. Abiel Clement MONO # 0.6 103/ul Normal 0.3-0.8 The [facility] Comment on above: Performed By: #### C BC ####[facility] Cjpkhytztw3942 [place] [phone]. Abiel Clement Monocytes/100 WBC (Bld) 7.1 % Normal 1.7-12.0 The [facility] Comment on above: Performed By: #### C BC ####[facility] Kbxaqelewj2640 [place] [phone]. Abiel Clement NEUT # 5.5 103/ul Normal 1.4-6.5 [facility] Comment on above: Performed By: #### C BC ####[facility] Fvxtxmisdv9705 [place] [address]Dr. Abiel Clement Neutrophils/100 WBC (Bld) 70.3 % Normal 43.0-75.0 The [facility] Comment on above: Performed By: #### C BC ####[facility] Pbmqjftqbq6864 [place] [phone]. Abiel Clement Platelet mean volume (Bld) [Entitic vol] 10.5 fL Normal 9.5-13.5 [facility] Comment on above: Performed By: #### C BC ####[facility] Eborindcce6613 [place] [phone]. Abiel Clement PLT 250 103/ul Normal 150-450 The [facility] Comment on above: Performed By: #### C BC ####[facility] Dhaxdsppbu4983 [place] [phone]. Abiel Clement RBC 3.21 106/ul Critically low 4.20-5.40 The [facility] Comment on above: Performed By: #### C BC ####[facility] Odhgrodeay9719 [place] [phone]. Abiel Clement WBC 7.9 103/ul Normal 4.0-11.0 The [facility] Comment on above: Performed By: #### C BC ####[facility] Xwmaotntnv8594 [place] [address]Dr. Abiel Clement PROF 14(COMP METB)on 022 Albumin [Mass/Vol] 2.2 g/dL Critically low 3.4-5.0 [facility] Comment on above: Performed By: #### C MP, BNP, HSTROPN ####[facility] Qcygudtcrp4600 [place] [address]Dr. Abiel Clement Albumin/Globulin [Mass ratio] 0.6 {ratio} Normal [facility] Comment on above: Performed By: #### C MP, BNP, HSTROPN ####[facility] [address]ouxyorqv[address] [place], [place] [address]Dr. Abiel Clement ALP [Catalytic activity/Vol] 112 U/L Normal 46-116 [facility] Comment on above: Performed By: #### C MP, BNP, HSTROPN ####[facility] Ycjafjlwnm[address] [place], [place] [address]Dr. Abiel Clement ALT [Catalytic activity/Vol] 19 U/L Normal 14-59 [facility] Comment on above: Performed By: #### C MP, BNP, HSTROPN ####[facility] Eszknnmosf[address] [place], [place] [address]Dr. Abiel Clement Anion gap [Moles/Vol] 12.2 mmol/L Normal [facility] Comment on above: Performed By: #### C MP, BNP, HSTROPN ####[facility] Augultlhop[address] [place], [place] [address]Dr. Abiel Clement AST [Catalytic activity/Vol] 15 U/L Normal 15-37 [facility] Comment on above: Performed By: #### C MP, BNP, HSTROPN ####[facility] [address]llwzwwavm[address] [place], [place] [address]Dr. Abiel Clement Bilirubin [Mass/Vol] 0.3 mg/dL Normal 0.2-1.0 [facility] Comment on above: Performed By: #### C MP, BNP, HSTROPN ####[facility] Dhylwsfepg4122 [place] [address]Dr. Abiel Clement Calcium [Mass/Vol] 8.6 mg/dL Normal 8.5-10.1 [facility] Comment on above: Performed By: #### C MP, BNP, HSTROPN ####[facility] Yqmqukgghh[address] [place] [address]Dr. Abiel Clement Chloride [Moles/Vol] 104 mmol/L Normal 98-107 The [facility] Comment on above: Performed By: #### C MP, BNP, HSTROPN ####[facility] Kjadagjcsd[address] [place] [address]Dr. Abiel Clement CO2 [Moles/Vol] 25.3 mmol/L Normal 21.0-32.0 The [facility] Comment on above: Performed By: #### C MP, BNP, HSTROPN ####[facility] [address] [place], [place] [address]Dr. Abiel Clement Creatinine [Mass/Vol] 0.98 mg/dL Normal 0.55-1.02 The [facility] Comment on above: Performed By: #### C MP, BNP, HSTROPN ####[facility] Pjcxfrvqsy[address] [place], [place] [address]Dr. Abiel Clement EGFR-AF TANZANIAN >60 Normal >=60 The [facility] Comment on above: Performed By: #### C MP, BNP, HSTROPN ####[facility] Pxmzmwetsr[address] [place], [place] [address]Dr. Abiel Clement EGFR-NON AF TANZANIAN 58 mL/min/1.73m2 Critically low >=60 The [facility] Comment on above: Performed By: #### C MP, BNP, HSTROPN ####[facility] Dxpdonyvcw[address] [place], [place] [address]Dr. Abiel Clement Globulin (S) [Mass/Vol] 3.7 g/dL Normal The [facility] Comment on above: Performed By: #### C MP, BNP, HSTROPN ####[facility] Gdtafwifxm[address] [place] [address]Dr. Abiel Clement Glucose [Mass/Vol] 279 mg/dL Critically high 74-106 [facility] Comment on above: Performed By: #### C MP, BNP, HSTROPN ####[facility] Oiezpgywpf32[address] [place] [address]Dr. Abiel Clement Potassium [Moles/Vol] 3.5 mmol/L Normal 3.5-5.1 [facility] Comment on above: Performed By: #### C MP, BNP, HSTROPN ####[facility] Fngakhfpax28[address] [place] [address]Dr. Abiel Clement Protein [Mass/Vol] 5.9 g/dL Critically low 6.4-8.2 [facility] Comment on above: Performed By: #### C MP, BNP, HSTROPN ####[facility] Xipvixatxk24[address] [place] [address]Dr. Abiel Clement Sodium [Moles/Vol] 138 mmol/L Normal 136-145 [facility] Comment on above: Performed By: #### C MP, BNP, HSTROPN ####[facility] Ypwhgwcfsv6834 [place] [address]Dr. Abiel Clement Urea nitrogen [Mass/Vol] 23.0 mg/dL Critically high 7.0-18.0 [facility] Comment on above: Performed By: #### C MP, BNP, HSTROPN ####[facility] Sasqriyyum34[address] [place] [address]Dr. Abiel Clement Urea nitrogen/Creatinine [Mass ratio] 23.5 mg/mg Normal [facility] Comment on above: Performed By: #### C MP, BNP, HSTROPN ####[facility] Ktnakgsfzg4[address] [place] [address]Dr. Abiel Clement TROPONIN, HIGH SENSITIVITYon 03-15-2022 HSTROP 9.0 pg/mL Normal 4.0-51.3 [facility] Comment on above: Result Comment: CUT- OFF POINTS HAVE BEEN ESTABLISHED BASED ON THE FOURTH UNIVERSAL DEFINITIONS OF MYOCARDIALINFARCTION. THE UPPER REFERENCE LIMIT (URL) OF TROPONIN, DEFINED THE 99TH PERCENTILE OFcTnI DISTRIBUTION IN A REFERENCE POPULATION, HAS BEEN CONFIRMED THE DECISION THRESHOLDFOR VA DIAGNOSIS. Performed By: #### C MP, BNP, HSTROPN ####[facility] Jujdkywstp[address] [place] [address]Dr. Abiel Clement BNPon 03-14-2022 Natriuretic peptide B (Bld) [Mass/Vol] 3438.0 pg/mL Critically high <=900.0 The [facility] Comment on above: Performed By: #### H STROPN, BNP, CMP ####[facility] Hrldwsadrf[address] [place], [place] [address]Dr. Abiel Clement CBC AUTO DIFFon 03-14-2022 BASO # 0.0 103/ul Normal 0.0-0.1 The [facility] Comment on above: Performed By: #### C BC ####[facility] Qxugxmihpq[address] [place], [place] [address]Dr. Abiel Clement Basophils/100 WBC (Bld) 0.4 % Normal 0.2-2.0 The [facility] Comment on above: Performed By: #### C BC ####[facility] Smrwpptnih[address] [place], [place] [address]Dr. Abiel Clement EO # 0.1 103/ul Normal 0.0-0.7 The [facility] Comment on above: Performed By: #### C BC ####[facility] Jklbhhgk[address] [place], [place] [address]Dr. Abiel Clemetn Eosinophils/100 WBC (Bld) 0.9 % Normal 0.9-7.0 The [facility] Comment on above: Performed By: #### C BC ####[facility] Gbxozvjuiv[address] [place], [place] [address]Dr. Abiel Clement Erythrocyte distribution width (RBC) [Ratio] 13.5 % Normal 11.0-15.0 The [facility] Comment on above: Performed By: #### C BC ####[facility] Gfyiesmtfq[address] [place], [place] [address]Dr. Abiel Clement Hematocrit (Bld) [Volume fraction] 29.5 % Critically low 36.0-48.0 The [facility] Comment on above: Performed By: #### C BC ####[facility] Cpwssmwgeo[address] [place] [id number]. Abiel Clement Hemoglobin (Bld) [Mass/Vol] 9.3 g/dL Critically low 12.0-16.0 The [facility] Comment on above: Performed By: #### C BC ####[facility] Zpkphblpme4584 [place] [phone]. Abiel Clement IG # 0.07 10e3/ul Critically high 0.00-0.03 [facility] Comment on above: Performed By: #### C BC ####[facility] Fdrszjgzwc6578 [place] [address]Dr. Abiel Clement IG % 0.7 % Critically high 0.0-0.5 The [facility] Comment on above: Performed By: #### C BC ####[facility] Gakuknhxuj[address] [place], [place] [address]Dr. Abiel Clement LYMPH # 1.7 103/ul Normal 1.2-3.8 The [facility] Comment on above: Performed By: #### C BC ####[facility] Vcifjeiriy8[address] [place] [address]Dr. Abiel Clement Lymphocytes/100 WBC (Bld) 17.0 % Critically low 20.5-60.0 [facility] Comment on above: Performed By: #### C BC ####[facility] Wfkcmjkwmh[address] [place] [address]Dr. Abiel Clement MANUAL DIFF REQ NO Normal The [facility] Comment on above: Performed By: #### C BC ####[facility] Tqtwlwiaec[address] [place], [place] [address]Dr. Abiel Clement MCH (RBC) [Entitic mass] 29.2 pg Normal 26.7-34.0 The [facility] Comment on above: Performed By: #### C BC ####[facility] Wvcjtpxahj[address] [place], [place] [address]Dr. Abiel Clement MCHC (RBC) [Mass/Vol] 31.5 g/dL Normal 29.9-35.2 The [facility] Comment on above: Performed By: #### C BC ####[facility] Yvoawnmucs3485 [place] [phone]. Abiel Clement MCV (RBC) [Entitic vol] 92.5 fL Normal 81.0-99.0 The [facility] Comment on above: Performed By: #### C BC ####[facility] Yhnhbtwaet1182 [place] [phone]. Abiel Clement MONO # 0.9 103/ul Critically high 0.3-0.8 The [facility] Comment on above: Performed By: #### C BC ####[facility] R[address] [place], [place] [id number]. Abiel Clement Monocytes/100 WBC (Bld) 9.1 % Normal 1.7-12.0 The [facility] Comment on above: Performed By: #### C BC ####[facility] Ihsjqvloca[address] [place], [place] [address]Dr. Abiel Clement NEUT # 7.3 103/ul Critically high 1.4-6.5 The [facility] Comment on above: Performed By: #### C BC ####[facility] Mn[address]rx[address]xy[address] [place], [place] [id number]. Abiel Clement Neutrophils/100 WBC (Bld) 71.9 % Normal 43.0-75.0 The [facility] Comment on above: Performed By: #### C BC ####[facility] Jbdpybmslc[address] [place], [place] [address]Dr. Abiel Clement Platelet mean volume (Bld) [Entitic vol] 11.0 fL Normal 9.5-13.5 The [facility] Comment on above: Performed By: #### C BC ####[facility] Wurjkuqpxp7[address] [place] [phone]. Abiel Clement PLT 232 103/ul Normal 150-450 The [facility] Comment on above: Performed By: #### C BC ####[facility] Cxr[address]volq[address] [place], [place] [address]Dr. Abiel Clement RBC 3.19 106/ul Critically low 4.20-5.40 The [facility] Comment on above: Performed By: #### C BC ####[facility] Egimfoskhe08[address] [place] [phone]. Abiel Clement WBC 10.1 103/ul Normal 4.0-11.0 [facility] Comment on above: Performed By: #### C BC ####[facility] Iksmjcyilx9157 [place] [phone]. Abiel Clement POINT OF CARE GLUCOSEon 03-05 Glucose [Mass/Vol] 141 mg/dL Critically high [address] [place] [address] Comment on above: Performed By: #### P OCGLUC ####[facility] Tfyplvigpq7120 [place] [address]Dr. Abiel Clement Glucose [Mass/Vol] 182 mg/dL Critically high [address] [place] [address] Comment on above: Performed By: #### P OCGLUC ####[facility] Lrxzykdlrp4513 [place] [address]Dr. Abiel Clement Glucose [Mass/Vol] 235 mg/dL Critically high [address] [place] [address] Comment on above: Performed By: #### P OCGLUC ####[facility] Kirtclufuq0146 [place] [address]Dr. Abiel Clement Glucose [Mass/Vol] 246 mg/dL Critically high [address] [place] [address] Comment on above: Performed By: #### P OCGLUC ####[facility] Djqsadbell1207 [place] [address]Dr. Abiel Clement Glucose [Mass/Vol] 256 mg/dL Critically high [address] [place] [address] Comment on above: Performed By: #### P OCGLUC ####[facility] Mxcgoclbss5643 [place] [address]Dr. Abiel Clement Glucose [Mass/Vol] 249 mg/dL Critically high [address] [place] [address] Comment on above: Performed By: #### P OCGLUC ####[facility] Ygguboalap43[address] [place] [address]Dr. Abiel Urbano PROF 14(COMP METB)on 022 Albumin [Mass/Vol] 2.2 g/dL Critically low 3.4-5.0 [facility] Comment on above: Performed By: #### H STROPN, BNP, CMP ####[facility] Aqagcqdpcn98[address] [place] [address]Dr. Abiel Clement Albumin/Globulin [Mass ratio] 0.6 {ratio} Normal [facility] Comment on above: Performed By: #### H STROPN, BNP, CMP ####[facility] Kwjopfyltw7329 [place] [address]Dr. Abiel Clement ALP [Catalytic activity/Vol] 114 U/L Normal 46-116 [facility] Comment on above: Performed By: #### H STROPN, BNP, CMP ####[facility] Jfmsexbhwh5966 [place] [address]Dr. Abiel Clement ALT [Catalytic activity/Vol] 20 U/L Normal 14-59 [facility] Comment on above: Performed By: #### H STROPN, BNP, CMP ####[facility] Mmhswsecvh[address] [place], [place] [address]Dr. Abiel Clement Anion gap [Moles/Vol] 9.7 mmol/L Normal [facility] Comment on above: Performed By: #### H STROPN, BNP, CMP ####[facility] Edhkvpglbw[address] [place], [place] [address]Dr. Abiel Clement AST [Catalytic activity/Vol] 18 U/L Normal 15-37 [facility] Comment on above: Performed By: #### H STROPN, BNP, CMP ####[facility] Dxbejpvgrd[address] [place], [place] [address]Dr. Abiel Clement Bilirubin [Mass/Vol] 0.2 mg/dL Normal 0.2-1.0 [facility] Comment on above: Performed By: #### H STROPN, BNP, CMP ####[facility] Zedpuacmii[address] [place], [place] [address]Dr. Abiel Clement Calcium [Mass/Vol] 8.4 mg/dL Critically low 8.5-10.1 [facility] Comment on above: Performed By: #### H STROPN, BNP, CMP ####[facility] Ibakherocp[address] [place], [place] [address]Dr. Abiel Clement Chloride [Moles/Vol] 105 mmol/L Normal 98-107 The [facility] Comment on above: Performed By: #### H STROPN, BNP, CMP ####[facility] Bmriumeyki27[address] [place] [address]Dr. Abiel Clement CO2 [Moles/Vol] 26.1 mmol/L Normal 21.0-32.0 The [facility] Comment on above: Performed By: #### H STROPN, BNP, CMP ####[facility] Miazigdyse[address]138 [place] [address]Dr. Abiel Clement Creatinine [Mass/Vol] 1.01 mg/dL Normal 0.55-1.02 The [facility] Comment on above: Performed By: #### H STROPN, BNP, CMP ####[facility] Rruuxftdnf9928 [place] [address]Dr. Abiel Clement EGFR-AF TANZANIAN >60 Normal >=60 [facility] Comment on above: Performed By: #### H STROPN, BNP, CMP ####[facility] Gexvgjkpod15[address] [place] [address]Dr. Abiel Clement EGFR-NON AF TANZANIAN 56 mL/min/1.73m2 Critically low >=60 The [facility] Comment on above: Performed By: #### H STROPN, BNP, CMP ####[facility] Exlbkvvmee4547 [place] [address]Dr. Abiel Clement Globulin (S) [Mass/Vol] 3.4 g/dL Normal [facility] Comment on above: Performed By: #### H STROPN, BNP, CMP ####[facility] Xrysvfyfwx7041 [place] [address]Dr. Abiel Clement Glucose [Mass/Vol] 267 mg/dL Critically high 74-106 [facility] Comment on above: Performed By: #### H STROPN, BNP, CMP ####[facility] Mstqdzwxvt4938 [place] [address]Dr. Abiel Clement Potassium [Moles/Vol] 3.8 mmol/L Normal 3.5-5.1 The [facility] Comment on above: Performed By: #### H STROPN, BNP, CMP ####[facility] Qzwmjbgtbf1314 [place] [address]Dr. Abiel Clement Protein [Mass/Vol] 5.6 g/dL Critically low 6.4-8.2 Th [facility] Comment on above: Performed By: #### H STROPN, BNP, CMP ####[facility] Cknojdnsrs2576 [place] [address]Dr. Abiel Clement Sodium [Moles/Vol] 137 mmol/L Normal 136-145 [facility] Comment on above: Performed By: #### H STROPN, BNP, CMP ####[facility] Xobvfcujpa1258 [place] [address]Dr. Abiel Clement Urea nitrogen [Mass/Vol] 28.0 mg/dL Critically high 7.0-18.0 [facility] Comment on above: Performed By: #### H STROPN, BNP, CMP ####[facility] Zicdbbvjwx8871 [place] [address]Dr. Abiel Clement Urea nitrogen/Creatinine [Mass ratio] 27.7 mg/mg Normal [facility] Comment on above: Performed By: #### H STROPN, BNP, CMP ####[facility] Fenvobcqka45[address] [place] [address]Dr. Abiel Clement TROPONIN, HIGH SENSITIVITYon 03-14-2022 HSTROP 13.7 pg/mL Normal 4.0-51.3 [facility] Comment on above: Result Comment: CUT- OFF POINTS HAVE BEEN ESTABLISHED BASED ON THE FOURTH UNIVERSAL DEFINITIONS OF MYOCARDIALINFARCTION. THE UPPER REFERENCE LIMIT (URL) OF TROPONIN, DEFINED THE 99TH PERCENTILE OFcTnI DISTRIBUTION IN A REFERENCE POPULATION, HAS BEEN CONFIRMED THE DECISION THRESHOLDFOR VA DIAGNOSIS. Performed By: #### H STROPN, BNP, CMP ####[facility] Pxsvixxwky5732 [place] [address]Dr. Abiel Clement BNPon 03-13-2022 Natriuretic peptide B (Bld) [Mass/Vol] 1791.0 pg/mL Critically high <=900.0 [facility] Comment on above: Performed By: #### C MP, BNP ####[facility] Aeowoeutjg8925 [place] [phone]. Abiel Urbano Natriuretic peptide B (Bld) [Mass/Vol] 698.0 pg/mL Normal <=900.0 The [facility] Comment on above: Performed By: #### B [employer], CMP ####[facility] Xzyikupgya[address] [place], [place] [address]Dr. Abiel Clement CBC AUTO DIFFon 03-13-2022 BASO # 0.0 103/ul Normal 0.0-0.1 The [facility] Comment on above: Performed By: #### C BC ####[facility] Tcqmbwufxr[address] [place], [place] [address]Dr. Abiel Clement Basophils/100 WBC (Bld) 0.2 % Normal 0.2-2.0 The [facility] Comment on above: Performed By: #### C BC ####[facility] Eexnyoorgg[address] [place], [place] [address]Dr. Abiel Clement EO # 0.0 103/ul Normal 0.0-0.7 The [facility] Comment on above: Performed By: #### C BC ####[facility] Rmqyxdklwt[address] [place], [place] [address]Dr. Abiel Clement Eosinophils/100 WBC (Bld) 0.0 % Critically low 0.9-7.0 The [facility] Comment on above: Performed By: #### C BC ####[facility] Wabvqsdryu[address] [place], [place] [address]Dr. Abiel Clement Erythrocyte distribution width (RBC) [Ratio] 13.3 % Normal 11.0-15.0 The [facility] Comment on above: Performed By: #### C BC ####[facility] Xylmgkxcmo[address] [place], [place] [address]Dr. Abiel Clement Hematocrit (Bld) [Volume fraction] 33.4 % Critically low 36.0-48.0 The [facility] Comment on above: Performed By: #### C BC ####[facility] Gxbhhjwdfg[address] [place], [place] [address]Dr. Abiel Clement Hemoglobin (Bld) [Mass/Vol] 10.6 g/dL Critically low 12.0-16.0 [facility] Comment on above: Performed By: #### C BC ####[facility] Puptxuqmcp3844 [place] [address]DrKasia Clement IG # 0.13 10e3/ul Critically high 0.00-0.03 [facility] Comment on above: Performed By: #### C BC ####[facility] Iczmffzzmd9508 [place] [address]DrKasia Clement IG % 0.8 % Critically high 0.0-0.5 [facility] Comment on above: Performed By: #### C BC ####[facility] Tnqsmfhsvh2616 [place] [address]DrKasia Clement LYMPH # 1.0 103/ul Critically low 1.2-3.[address] [facility] Comment on above: Performed By: #### C BC ####[facility] Mwblxbiwty5026 [place] [address]DrKasia Clement Lymphocytes/100 WBC (Bld) 6.0 % Critically low 20.5-60.0 [facility] Comment on above: Performed By: #### C BC ####[facility] Birdxaxdkf7978 [place] [address]DrKasia Clement MANUAL DIFF REQ NO Normal [facility] Comment on above: Performed By: #### C BC ####[facility] Vmfnuilxok7995 [place] [address]DrKasia Clement MCH (RBC) [Entitic mass] 30.0 pg Normal 26.7-34.0 [facility] Comment on above: Performed By: #### C BC ####[facility] Yltyollmce1866 [place] [phone] Clement MCHC (RBC) [Mass/Vol] 31.7 g/dL Normal 29.9-35.2 The [facility] Comment on above: Performed By: #### C BC ####[facility] Mcupitmtte0187 [place] [phone] Clement MCV (RBC) [Entitic vol] 94.6 fL Normal 81.0-99.0 The [facility] Comment on above: Performed By: #### C BC ####[facility] Tjiiqqkjed0659 [place] [phone]. Abiel Clement MONO # 1.4 103/ul Critically high 0.3-0.8 [facility] Comment on above: Performed By: #### C BC ####[facility] Gkwqqqtfwy5788 [place] [phone]. Abiel Clement Monocytes/100 WBC (Bld) 8.9 % Normal 1.7-12.0 The [facility] Comment on above: Performed By: #### C BC ####[facility] Nnalxgdpny6304 [place] [phone]. Abiel Clement NEUT # 13.3 103/ul Critically high 1.4-6.5 [facility] Comment on above: Performed By: #### C BC ####[facility] Jvggkajrlm2958 [place] [address]Dr. Abiel Clement Neutrophils/100 WBC (Bld) 84.1 % Critically high 43.0-75.0 The [facility] Comment on above: Performed By: #### C BC ####[facility] Hstzibpogv9224 [place] [phone]. Abiel Clement Platelet mean volume (Bld) [Entitic vol] 10.8 fL Normal 9.5-13.5 The [facility] Comment on above: Performed By: #### C BC ####[facility] Ybdjmftujw8341 [place] [phone]. Abiel Clement PLT 243 103/ul Normal 150-450 The [facility] Comment on above: Performed By: #### C BC ####[facility] Zqudodueaw3864 [place] [phone]. Abiel Urbano RBC 3.53 106/ul Critically low 4.20-5.40 The [facility] Comment on above: Performed By: #### C BC ####[facility] Tyqwqeqcxr9589 [place] [phone]. Abiel Urbano WBC 15.9 103/ul Critically high 4.0-11.0 [facility] Comment on above: Performed By: #### C BC ####[facility] Haeudmofty[address] [place] [address]Dr. Abiel Clement CBC W MANUAL DIFFon 03-13-20 22 ATYPICAL LYMPH # Normal [facility] Comment on above: Performed By: #### C BCMAN ####[facility] Vlldhffiyo8364 [place] [phone]. Abiel Clement ATYPICAL LYMPH % Normal [facility] Comment on above: Performed By: #### C BCMAN ####[facility] Wqwheuycrv9465 [place] [address]Dr. Abiel Clement BAND # 0.8 103/ul Critically high 0.0-0.3 The [facility] Comment on above: Performed By: #### C BCMAN ####[facility] Onqvctubuh1566 [place] [address]Dr. Abiel Clement BAND % 6 % Critically high 0-5 The [facility] Comment on above: Performed By: #### C BCMAN ####[facility] [address]sfscneni[address] [place], [place] [address]Dr. Abiel Clement BASOM # 0.00 103/ul Normal 0.00-0.10 The [facility] Comment on above: Performed By: #### C BCMAN ####[facility] Yxkhystxbq2685 [place] [address]Dr. Abiel Urbano BASOM % 0.0 % Critically low 0.2-2.0 [facility] Comment on above: Performed By: #### C BCMAN ####[facility] Bfohsrfkdh8[address] [place] [address]Dr. Abiel Clement BLAST # Normal The [facility] Comment on above: Performed By: #### C BCMAN ####[facility] Fxwhub[address] [place], [place] [address]Dr. Abiel Clement BLAST % Normal The [facility] Comment on above: Performed By: #### C BCMAN ####[facility] Rgpzygxhnh[address] [place], [place] [address]Dr. Abiel Clement CORRECTED WBC Normal 4.0-11.0 [facility] Comment on above: Performed By: #### C ALVINO ####[facility] Ekmyhvilwj4039 [place], [place] [address]Zf. Abiel Clement EOS # 0.00 103/ul Normal 0.00-0.70 [facility] Comment on above: Performed By: #### C ALVINO ####[facility] Bndqcpvutk5539 [place], [place] [address]Pg. Abiel Clement EOS% 0.0 % Critically low 0.9-7.[address] [facility] Comment on above: Performed By: #### C ALVINO ####[facility] Mafdsxcdol0697 [place] [id number]. Abiel Clement HCT 38.5 % Normal 36.0-48.0 [facility] Comment on above: Performed By: #### C ALVINO ####[facility] Htfjwttevf5270 [place] [id number]. Abiel Clement HGB 12.5 g/dl Normal 12.0-16.0 [facility] Comment on above: Performed By: #### C ALVINO ####[facility] Qdpunxplex4547 [place] [id number]. Abiel Clement LYMPHM # 0.13 103/ul Critically low 1.20-3.80 [facility] Comment on above: Performed By: #### C ALVINO ####[facility] Tlhjmqbzal1377 [place] [phone]. Abiel Clement LYMPHM% 1.0 % Critically low 20.5-60.0 [facility] Comment on above: Performed By: #### C ALVINO ####[facility] Aauroyckjt1483 [place], [place] [address]Xh. Abiel Clement MCH 29.3 pg Normal 26.7-34.0 The [facility] Comment on above: Performed By: #### C ALVINO ####[facility] Fyigzzluqg8542 [place] [phone]. Abiel Clement MCHC 32.5 g/dl Normal 29.9-35.2 The [facility] Comment on above: Performed By: #### Sheila DE OLIVEIRA ####[facility] Tflyvjtyjw0312 [place] [phone]. Abiel Clement MCV 90.4 fL Normal 81.0-99.0 [facility] Comment on above: Performed By: #### C ALVINO ####[facility] Mwesnytebo8402 [place] [phone]. Abiel Clement METAMYELOCYTE # Normal The [facility] Comment on above: Performed By: #### Sheila DE OLIVEIRA ####[facility] Omfrhxtsou5033 [place] [address]Dr. Abiel Clement METAMYELOCYTE % Normal [facility] Comment on above: Performed By: #### Sheila DE OLIVEIRA ####[facility] Qzdlhvglxp[address] [place], [place] [address]Dr. Abiel Clement MONOM# 0.13 103/ul Critically low 0.30-0.80 [facility] Comment on above: Performed By: #### Sheila DE OLIVEIRA ####[facility] Nnecuuskmt[address] [place], [place] [address]Dr. Abiel Clement MONOM% 1.0 % Critically low 1.7-12.[address] [facility] Comment on above: Performed By: #### Sheila DE OLIVEIRA ####[facility] Dmudgfsdad9[address] [place], [place] [address]Dr. Abiel Clement MPV 10.6 fL Normal 9.5-13.5 The [facility] Comment on above: Performed By: #### Sheila DE OLIVEIRA ####[facility] Pnjxlhrimk[address] [place], [place] [address]Dr. Abiel Clement MYELOCYTE # Normal The [facility] Comment on above: Performed By: #### Sheila DE OLIVEIRA ####[facility] Ogeamzrawt[address] [place] [address]Dr. Abiel Clement MYELOCYTE % Normal The [facility] Comment on above: Performed By: #### Sheila DE OLIVEIRA ####[facility] Uyojhipzxt3222 [place] [address]Dr. Abiel Clement NRBC Normal The [facility] Comment on above: Performed By: #### Sheila DE OLIVEIRA ####[facility] Afgvockonu4650 [place], [place] [address]Dv. Abiel Clement PLT 307 103/ul Normal 150-450 [facility] Comment on above: Result Comment: Plat elet clumps noted on diff. Automated Platelet count may be falsely decreased Performed By: #### C ALVINO ####[facility] Njmxovbkhe2272 [place], [place] [address]Sa. Abiel Clement RBC 4.26 106/ul Normal 4.20-5.40 [facility] Comment on above: Performed By: #### C ALVINO ####[facility] Vxymzpisms8249 [place], [place] [address]Mv. Abiel Clement RDW 13.3 % Normal 11.0-15.0 [facility] Comment on above: Performed By: #### Sheila DE OLIVEIRA ####[facility] Evpqnveomq0460 [place] [phone]. Abiel Clement SEG # 11.68 103/ul Critically high 1.40-6.50 [facility] Comment on above: Performed By: #### Sheila DE OLIVEIRA ####[facility] Mrttnxzklz2047 [place], [place] [address]Zb. Abiel Clement SEG % 92.0 % Critically high 43.0-75.0 [facility] Comment on above: Performed By: #### C ALVINO ####[facility] Cbivajfryz7299 [place], [place] [address]Zb. Abiel Clement WBC 12.7 103/ul Critically high 4.0-11.0 [facility] Comment on above: Performed By: #### Sheila DE OLIEVIRA ####[facility] Mknlcqrdcr2424 [place], [place] [address]Sy. Abiel Clement CTA CHEST WO W CONon 022 CTA CHEST WO W CON Normal The [facility] CULTURE BLOODon 03-13-2022 Microscopic examination of blood, culture Culture Observations: NO GROWTH AT 5 DAYS. Normal The [facility] Comment on above: Performed By: #### B LDCX2 ####[facility] Bdybahvzha4825 [place] [phone]. Suyapaviviana Clement Microscopic examination of blood, culture Culture Observations: NO GROWTH AT 5 DAYS. Normal [facility] Comment on above: Performed By: #### B LDCX1 ####[facility] Bupjoqipvy1616 [place], [place] [address]Pv. Abiel Urbano [facility]on SARS-CoV-2 (COVID-19) RNA CLARIBEL+probe Ql (Unsp spec) Not detected Normal NOT DETECTED The [facility] Comment on above: Result Comment: When diagnostic [...] for this test is supported by the [place] of [employer] and Human Service's declaration that [...] be used). Performed By: #### C VDTBH ####[facility] Ilmmqadyjl8328 [place], [place] [address]Lk. Abiel Clement D-DIMERon 03-13-2022 D-DIMER 2.68 mg/L FEU Critically high <=0.59 [facility] Comment on above: Performed By: #### D DIM ####[facility] Tifylbblho6834 [place], [place] [address]Ls. Abiel [facility] D-DIMER COMMENTS SEE BELOW Normal The [facility] Comment on above: Result Comment: Incr eases [...] generalized hospitalization. Performed By: #### D DIM ####[facility] Ypdnburvtz9[address] [place], [place] [address]Dr. Suyapaviviana Urbano LACTATE/LACTIC ACIDon 2021 Lactate [Moles/Vol] 1.6 mmol/L Normal 0.4-1.9 [facility] Comment on above: Performed By: #### L ACT ####[facility] Frprqbxpsq[address] [place], [place] [address]Dr. Abiel Clement Lactate [Moles/Vol] 2.0 mmol/L Critically high 0.4-1.9 [facility] Comment on above: Performed By: #### L ACT ####[facility] Xqjqoijxcg83[address] [place], [place] [address]Dr. Abiel Clement POINT OF CARE GLUCOSEon Glucose [Mass/Vol] 359 mg/dL Critically high [address] [place] [address] Comment on above: Performed By: #### P OCGLUC ####[facility] Urpdxhothq98[address] [place], [place] [address]Dr. Abiel Clement Glucose [Mass/Vol] 428 mg/dL Critically high [address] [place] [address] Comment on above: Performed By: #### P OCGLUC ####[facility] Vryvteiahs[address] [place], [place] [address]Dr. Suyapaviviana Clement Glucose [Mass/Vol] 461 mg/dL Critically high [address] [place] [address] Comment on above: Performed By: #### P OCGLUC ####[facility] Zlyqfoyoqs8[address] [place], [place] [address]Dr. Abiel Clement Glucose [Mass/Vol] 494 mg/dL Critically high [address] [place] [address] Comment on above: Performed By: #### P OCGLUC ####[facility] Clleshehup72[address] [place], [place] [address]Dr. Abiel Clement PROF 14(COMP METB)on 022 Albumin [Mass/Vol] 2.4 g/dL Critically low 3.4-5.0 [facility] Comment on above: Performed By: #### C MP, BNP ####[facility] Ziuogfhoqa2492 [place] [address]Dr. Abiel Clement Albumin/Globulin [Mass ratio] 0.6 {ratio} Normal [facility] Comment on above: Performed By: #### C MP, BNP ####[facility] Elnwkfzihd6269 [place] [address]Dr. Abiel Clement ALP [Catalytic activity/Vol] 128 U/L Critically high 46-116 [facility] Comment on above: Performed By: #### C MP, BNP ####[facility] Qjfrsmvmln[address] [place], [place] [address]Dr. Abiel Clement ALT [Catalytic activity/Vol] 17 U/L Normal 14-59 [facility] Comment on above: Performed By: #### C MP, BNP ####[facility] Ukbpdbvdqv594[address] [place], [place] [address]Dr. Abiel Clement Anion gap [Moles/Vol] 13.9 mmol/L Normal [facility] Comment on above: Performed By: #### C MP, BNP ####[facility] Sscqnafbxt4[address] [place], [place] [address]Dr. Abiel Clement AST [Catalytic activity/Vol] 26 U/L Normal 15-37 [facility] Comment on above: Performed By: #### C MP, BNP ####[facility] Mbchkkovlc[address] [place], [place] [address]Dr. Abiel Clement Bilirubin [Mass/Vol] 0.5 mg/dL Normal 0.2-1.0 [facility] Comment on above: Performed By: #### C MP, BNP ####[facility] Xsvskydmiv72[address] [place], [place] [address]Dr. Abiel Clement Calcium [Mass/Vol] 8.3 mg/dL Critically low 8.5-10.1 [facility] Comment on above: Performed By: #### C MP, BNP ####[facility] Hsidbzhpuq35[address] [place], [place] [address]Dr. Abiel Clement Chloride [Moles/Vol] 99 mmol/L Normal 98-107 [facility] Comment on above: Performed By: #### C MP, BNP ####[facility] Vluwvputai3706[address] [place], [place] [address]Dr. Suyapaviviana Urbano CO2 [Moles/Vol] 23.4 mmol/L Normal 21.0-32.0 [facility] Comment on above: Performed By: #### C MP, BNP ####[facility] Pemqdweqqu[address] [place], [place] [address]Dr. Abiel Clement Creatinine [Mass/Vol] 1.19 mg/dL Critically high 0.55-1.02 [facility] Comment on above: Performed By: #### C MP, BNP ####[facility] Yfpmhsimaz5214[address] [place], [place] [address]Dr. Abiel Clement EGFR-AF TANZANIAN 56 mL/min/1.73m2 Critically low >=60 [facility] Comment on above: Performed By: #### C MP, BNP ####[facility] Cbzfgmdyht[address] [place], [place] [address]Dr. Abiel Clement EGFR-NON AF TANZANIAN 46 mL/min/1.73m2 Critically low >=60 [facility] Comment on above: Performed By: #### C MP, BNP ####[facility] Anivkbuzyr4924[address] [place], [place] [address]Dr. Abiel Clement Globulin (S) [Mass/Vol] 3.7 g/dL Normal [facility] Comment on above: Performed By: #### C MP, BNP ####[facility] Hfgaclcsnv919[address] [place], [place] [address]Dr. Abiel Clement Glucose [Mass/Vol] 447 mg/dL Critically high 74-106 [facility] Comment on above: Performed By: #### C MP, BNP ####[facility] Zualqplpbp74[address] [place], [place] [address]Dr. Abiel Clement Potassium [Moles/Vol] 5.3 mmol/L Critically high 3.5-5.1 [facility] Comment on above: Performed By: #### C MP, BNP ####[facility] [address] [place], [place] [address]Dr. Abiel Clement Protein [Mass/Vol] 6.1 g/dL Critically low 6.4-8.2 Th [facility] Comment on above: Performed By: #### C MP, BNP ####[facility] Ycczgzomlc9513[address] [place], [place] [address]Dr. Abiel Clement Sodium [Moles/Vol] 131 mmol/L Critically low 136-145 Th [facility] Comment on above: Performed By: #### C MP, BNP ####[facility] Sizlmwtedp039[address] [place], [place] [address]Dr. Abiel Clement Urea nitrogen [Mass/Vol] 36.0 mg/dL Critically high 7.0-18.0 [facility] Comment on above: Performed By: #### C MP, BNP ####[facility] Vfuiazdrjo[address] [place], [place] [address]Dr. Abiel Clement Urea nitrogen/Creatinine [Mass ratio] 30.3 mg/mg Normal [facility] Comment on above: Performed By: #### C MP, BNP ####[facility] Oaatetjmxp2799[address] [place], [place] [address]Dr. Abiel Clement Albumin [Mass/Vol] 3.1 g/dL Critically low 3.4-5.0 [facility] Comment on above: Performed By: #### B PEDIATRICIAN MANAGING PARTNER, CMP ####[facility] Tcrekkbnko3854[address] [place], [place] [address]Dr. Abiel Clement Albumin/Globulin [Mass ratio] 0.7 {ratio} Normal [facility] Comment on above: Performed By: #### B PEDIATRICIAN MANAGING PARTNER, CMP ####[facility] Synhlxjrrt1664[address] [place], [place] [address]Dr. Abiel Clement ALP [Catalytic activity/Vol] 161 U/L Critically high 46-116 [facility] Comment on above: Performed By: #### B PEDIATRICIAN MANAGING PARTNER, CMP ####[facility] Tgwcfwbwbt17[address] [place], [place] [address]Dr. Abiel Clement ALT [Catalytic activity/Vol] 22 U/L Normal 14-59 [facility] Comment on above: Performed By: #### B PEDIATRICIAN MANAGING PARTNER, CMP ####[facility] Pbwhixvtim5363 [place] [address]Dr. Abiel Clement Anion gap [Moles/Vol] 13.5 mmol/L Normal [facility] Comment on above: Performed By: #### B PEDIATRICIAN MANAGING PARTNER, CMP ####[facility] Itezmvobao3[address] [place], [place] [address]Dr. Abiel Clement AST [Catalytic activity/Vol] 41 U/L Critically high 15-37 The [facility] Comment on above: Performed By: #### B PEDIATRICIAN MANAGING PARTNER, CMP ####[facility] Ceajsngfro[address] [place], [place] [address]Dr. Abiel Clement Bilirubin [Mass/Vol] 0.5 mg/dL Normal 0.2-1.0 [facility] Comment on above: Performed By: #### B PEDIATRICIAN MANAGING PARTNER, CMP ####[facility] Nnxmefbhhe1312[address] [place], [place] [address]Dr. Abiel Clement Calcium [Mass/Vol] 9.4 mg/dL Normal 8.5-10.1 [facility] Comment on above: Performed By: #### B PEDIATRICIAN MANAGING PARTNER, CMP ####[facility] Pxjidsohcf27[address] [place], [place] [address]Dr. Suyapaviviana Clement Chloride [Moles/Vol] 98 mmol/L Normal 98-107 [facility] Comment on above: Performed By: #### B PEDIATRICIAN MANAGING PARTNER, CMP ####[facility] Vkaxtfvgmc7[address] [place], [place] [address]Dr. Suyapaviviana Clement CO2 [Moles/Vol] 27.0 mmol/L Normal 21.0-32.0 [facility] Comment on above: Performed By: #### B PEDIATRICIAN MANAGING PARTNER, CMP ####[facility] Ifvtmpbjuj3801[address] [place], [place] [address]Dr. Abiel Clement Creatinine [Mass/Vol] 1.08 mg/dL Critically high 0.55-1.02 [facility] Comment on above: Performed By: #### B PEDIATRICIAN MANAGING PARTNER, CMP ####[facility] Vryyirbpdr[address] [place], [place] [address]Dr. Abiel Clement EGFR-AF TANZANIAN >60 Normal >=60 [facility] Comment on above: Performed By: #### B PEDIATRICIAN MANAGING PARTNER, CMP ####[facility] Ofwzcdllyw3178 [place] [address]Dr. Abiel Clement EGFR-NON AF TANZANIAN 51 mL/min/1.73m2 Critically low >=60 [facility] Comment on above: Performed By: #### B PEDIATRICIAN MANAGING PARTNER, CMP ####[facility] Pmybbnstwq3799 [place] [phone]. Abiel Clement Globulin (S) [Mass/Vol] 4.2 g/dL Normal [facility] Comment on above: Performed By: #### B PEDIATRICIAN MANAGING PARTNER, CMP ####[facility] Mjhdmpktad7018 [place] [address]Dr. Abiel Clement Glucose [Mass/Vol] 173 mg/dL Critically high 74-106 [facility] Comment on above: Performed By: #### B PEDIATRICIAN MANAGING PARTNER, CMP ####[facility] Szkkijkwob[address] [place], [place] [address]Dr. Abiel Clement Potassium [Moles/Vol] 4.5 mmol/L Normal 3.5-5.1 [facility] Comment on above: Performed By: #### B PEDIATRICIAN MANAGING PARTNER, CMP ####[facility] C[address]ogjcufef[address] [place], [place] [address]Dr. Abiel Clement Protein [Mass/Vol] 7.3 g/dL Normal 6.4-8.2 [facility] Comment on above: Performed By: #### B PEDIATRICIAN MANAGING PARTNER, CMP ####[facility] Jtrbqrggwg66[address] [place], [place] [address]Dr. Abiel Clement Sodium [Moles/Vol] 134 mmol/L Critically low 136-145 Th [facility] Comment on above: Performed By: #### B PEDIATRICIAN MANAGING PARTNER, CMP ####[facility] [address]hz[address]vj[address] [place], [place] [address]Dr. Abiel Clement Urea nitrogen [Mass/Vol] 37.0 mg/dL Critically high 7.0-18.0 [facility] Comment on above: Performed By: #### B PEDIATRICIAN MANAGING PARTNER, CMP ####[facility] Rrapyyicpd17[address] [place], [place] [address]Dr. Abiel Clement Urea nitrogen/Creatinine [Mass ratio] 34.3 mg/mg Normal [facility] Comment on above: Performed By: #### B PEDIATRICIAN MANAGING PARTNER, CMP ####[facility] Dkhxrfpwaz3867 [place] [address]Dr. Abiel Clement XR ANKLE RT MIN 3 VIEWSon XR ANKLE RT MIN 3 VIEWS Normal The [facility] XR CHEST 1 Von 03-13-2022 XR CHEST 1 V Normal The [facility] XR FOOT RT MIN 3 VIEWSon XR FOOT RT MIN 3 VIEWS Normal The [facility] CBC AUTO DIFFon 03-12-2022 BASO # 0.1 103/ul Normal 0.0-0.1 The [facility] Comment on above: Performed By: #### C BC ####[facility] Crwjjduiao1424[address] [place], [place] [address]Dr. Abiel Clement Basophils/100 WBC (Bld) 0.7 % Normal 0.2-2.0 The [facility] Comment on above: Performed By: #### C BC ####[facility] Eaizoeydbw264[address] [place], [place] [address]Dr. Abiel Clement EO # 0.2 103/ul Normal 0.0-0.7 The [facility] Comment on above: Performed By: #### C BC ####[facility] Eoalqfqjsc[address] [place], [place] [address]DrKasia Clement Eosinophils/100 WBC (Bld) 2.1 % Normal 0.9-7.0 The [facility] Comment on above: Performed By: #### C BC ####[facility] Rziohwbags[address] [place], [place] [address]DrKasia Clement Erythrocyte distribution width (RBC) [Ratio] 13.1 % Normal 11.0-15.0 The [facility] Comment on above: Performed By: #### C BC ####[facility] Cmwbkwqqfi[address] [place], [place] [address]DrKasia Clement Hematocrit (Bld) [Volume fraction] 33.9 % Critically low 36.0-48.0 The [facility] Comment on above: Performed By: #### C BC ####[facility] Wtcrmoiifd[address] [place], [place] [address]DrKasia Clement Hemoglobin (Bld) [Mass/Vol] 11.0 g/dL Critically low 12.0-16.0 The [facility] Comment on above: Performed By: #### C BC ####[facility] Hhprrgfjzp0589 [place] [address]DrKasia Clement IG # 0.04 10e3/ul Critically high 0.00-0.03 [facility] Comment on above: Performed By: #### C BC ####[facility] Biwkaddopw1435 [place] [address]Dr. Abiel Clement IG % 0.4 % Normal 0.0-0.5 The [facility] Comment on above: Performed By: #### C BC ####[facility] Ussxucwlyv[address] [place], [place] [address]DrKasia Clement LYMPH # 2.0 103/ul Normal 1.2-3.8 The [facility] Comment on above: Performed By: #### C BC ####[facility] Ukopihrnri[address] [place], [place] [address]Dr. Abiel Clement Lymphocytes/100 WBC (Bld) 20.0 % Critically low 20.5-60.0 The [facility] Comment on above: Performed By: #### C BC ####[facility] Mnrfemmamf[address] [place], [place] [address]DrKasia Clement MANUAL DIFF REQ NO Normal [facility] Comment on above: Performed By: #### C BC ####[facility] Oeymoxksdi[address] [place], [place] [address]DrKasia Clement MCH (RBC) [Entitic mass] 29.5 pg Normal 26.7-34.0 The [facility] Comment on above: Performed By: #### C BC ####[facility] Sjdtpvxiqi[address] [place], [place] [address]Dr. Abiel Clement MCHC (RBC) [Mass/Vol] 32.4 g/dL Normal 29.9-35.2 The [facility] Comment on above: Performed By: #### C BC ####[facility] Buwyhnugvs[address] [place], [place] [address]Dr. Abiel Clement MCV (RBC) [Entitic vol] 90.9 fL Normal 81.0-99.0 The [facility] Comment on above: Performed By: #### C BC ####[facility] Txaehjfgms44[address] [place] [address]DrKasia Clement MONO # 1.0 103/ul Critically high 0.3-0.8 The [facility] Comment on above: Performed By: #### C BC ####[facility] Xg[address]yixc[address] [place], [place] [address]DrKasia Abiel Clement Monocytes/100 WBC (Bld) 10.3 % Normal 1.7-12.0 The [facility] Comment on above: Performed By: #### C BC ####[facility] Qenhbxxudv[address] [place], [place] [address]DrKasia Abiel Clement NEUT # 6.5 103/ul Normal 1.4-6.5 The [facility] Comment on above: Performed By: #### C BC ####[facility] Jptefpjkqc[address] [place], [place] [address]DrKasia Abiel Clement Neutrophils/100 WBC (Bld) 66.5 % Normal 43.0-75.0 The [facility] Comment on above: Performed By: #### C BC ####[facility] Nefxqrhdqj[address] [place], [place] [address]DrKasia Abiel Clement Platelet mean volume (Bld) [Entitic vol] 10.8 fL Normal 9.5-13.5 The [facility] Comment on above: Performed By: #### C BC ####[facility] Zwgwskkoua[address] [place], [place] [address]DrKasia Abiel Urbano PLT 278 103/ul Normal 150-450 The [facility] Comment on above: Performed By: #### C BC ####[facility] Ifxjgyvlgu[address] [place], [place] [address]DrKasia Abiel Urbano RBC 3.73 106/ul Critically low 4.20-5.40 The [facility] Comment on above: Performed By: #### C BC ####[facility] Vetgwsbowk[address] [place], [place] [address]DrKasia Clement WBC 9.7 103/ul Normal 4.0-11.0 [facility] Comment on above: Performed By: #### C BC ####[facility] Ygvrsarccb60[address] [place] [address]DrKasia Clement PROF CHEM 8 (BAS METB)on Anion gap [Moles/Vol] 11.5 mmol/L Normal [facility] Comment on above: Performed By: #### B MP ####[facility] Mdafxphhum[address] [place], [place] [address]Dr. Abiel Clement Calcium [Mass/Vol] 8.9 mg/dL Normal 8.5-10.1 [facility] Comment on above: Performed By: #### B MP ####[facility] Xplnelxnja[address] [place], [place] [address]DrKasia Clement Chloride [Moles/Vol] 102 mmol/L Normal 98-107 [facility] Comment on above: Performed By: #### B MP ####[facility] Rwyatxwgnx24[address] [place], [place] [address]Dr. Abiel Clement CO2 [Moles/Vol] 28.4 mmol/L Normal 21.0-32.0 [facility] Comment on above: Performed By: #### B MP ####[facility] Kicgqwluft27[address] [place], [place] [address]Dr. Abiel Clement Creatinine [Mass/Vol] 1.10 mg/dL Critically high 0.55-1.02 [facility] Comment on above: Performed By: #### B MP ####[facility] Uxwodwrkel[address] [place] [address]DrKasia Clement EGFR-AF TANZANIAN >60 Normal >=60 The [facility] Comment on above: Performed By: #### B MP ####[facility] Yuqwmgmlqn[address] [place], [place] [address]DrKasia Clement EGFR-NON AF TANZANIAN 50 mL/min/1.73m2 Critically low >=60 The [facility] Comment on above: Performed By: #### B MP ####[facility] Hizqojsxfl34[address] [place], [place] [address]DrKasia Clement Glucose [Mass/Vol] 106 mg/dL Normal 74-106 [facility] Comment on above: Performed By: #### B MP ####[facility] Zrssoskjir95[address] [place] [address]Dr. Abiel Clement Potassium [Moles/Vol] 3.9 mmol/L Normal 3.5-5.1 [facility] Comment on above: Performed By: #### B MP ####[facility] Cxyhlpooff[address] [place], [place] [address]Dr. Abiel Clement Sodium [Moles/Vol] 138 mmol/L Normal 136-145 [facility] Comment on above: Performed By: #### B MP ####[facility] Eqdjkyzyzx15[address] [place], [place] [address]Dr. Abiel Clement Urea nitrogen [Mass/Vol] 38.0 mg/dL Critically high 7.0-18.0 [facility] Comment on above: Performed By: #### B MP ####[facility] Xtxtayaknu[address] [place], [place] [address]Dr. Abiel Clement Urea nitrogen/Creatinine [Mass ratio] 34.5 mg/mg Normal [facility] Comment on above: Performed By: #### B MP ####[facility] Thykpfhryg[address] [place], [place] [address]Dr. Abiel Clement XR FOOT LT MIN 3 VIEWSon -2021 XR FOOT LT MIN 3 VIEWS Normal [facility] POINT OF CARE GLUCOSEon 0 Glucose [Mass/Vol] 389 mg/dL Critically high 74-106 [facility] Comment on above: Performed By: #### P OCGLUC ####[facility] Kcjbzbceql4355 [place] [address]Dr. Abiel Clement Glucose [Mass/Vol] 414 mg/dL Critically high 74-106 [facility] Comment on above: Performed By: #### P OCGLUC ####[facility] Rbsyekhdtt2674 [place] [address]Dr. Abiel Clement Glucose [Mass/Vol] 295 mg/dL Critically high 74-106 [facility] Comment on above: Performed By: #### P OCGLUC ####[facility] Ojusknhnwh6[address] [place] [id number]. Abiel Clement Glucose [Mass/Vol] 323 mg/dL Critically high 74-106 T he [facility] Comment on above: Performed By: #### P OCGLUC ####[facility] Zmmyoguong99[address] [place] [id number]. Abiel Clement Covid-19 PCR (CVDTBH)on SARS-CoV-2 (COVID-19) RNA CLARIBEL+probe Ql (Unsp spec) Not detected Normal NOT DETECTED The [facility] Comment on above: Result Comment: When diagnostic [...] for this test is supported by the [employer] and Human Service's declaration that [...] be used). Performed By: #### C VDTBH ####[facility] Osiahcmlwj2[address] [place] [id number]. Abiel Clement CBC AUTO DIFFon 03-01-2022 BASO # 0.1 103/ul Normal 0.0-0.1 [facility] Comment on above: Performed By: #### C BC ####[facility] Sqjpnxuazt2565 [place] [id number]. Abiel Clement Basophils/100 WBC (Bld) 0.7 % Normal 0.2-2.0 [facility] Comment on above: Performed By: #### C BC ####[facility] Wotildapup[address]72 [place] [address]Dr. Abiel Clement EO # 0.2 103/ul Normal 0.0-0.7 The [facility] Comment on above: Performed By: #### C BC ####[facility] Xrsrjhxeii24[address] [place], [place] [address]Dr. Abiel Clement Eosinophils/100 WBC (Bld) 2.6 % Normal 0.9-7.0 The [facility] Comment on above: Performed By: #### C BC ####[facility] Srigshpcru7[address] [place], [place] [address]Dr. Abiel Clement Erythrocyte distribution width (RBC) [Ratio] 13.2 % Normal 11.0-15.0 The [facility] Comment on above: Performed By: #### C BC ####[facility] Vcgghywidl[address] [place], [place] [address]Dr. Abiel Clement Hematocrit (Bld) [Volume fraction] 42.4 % Normal 36.0-48.0 The [facility] Comment on above: Performed By: #### C BC ####[facility] Fyggxwxfpf74[address] [place], [place] [address]Dr. Abiel Clement Hemoglobin (Bld) [Mass/Vol] 13.9 g/dL Normal 12.0-16.0 The [facility] Comment on above: Performed By: #### C BC ####[facility] Ewulxjidou[address] [place], [place] [address]Dr. Abiel Clement IG # 0.02 10e3/ul Normal 0.00-0.03 The [facility] Comment on above: Performed By: #### C BC ####[facility] Ygmhecajna[address] [place], [place] [address]Dr. Abiel Clement IG % 0.3 % Normal 0.0-0.5 The [facility] Comment on above: Performed By: #### C BC ####[facility] Kxoxnywepn[address] [place], [place] [address]Dr. Abiel Clement LYMPH # 1.8 103/ul Normal 1.2-3.8 The [facility] Comment on above: Performed By: #### C BC ####[facility] Xndpiaeijl9[address] [place] [address]Dr. Abiel Urbano Lymphocytes/100 WBC (Bld) 24.1 % Normal 20.5-60.0 The [facility] Comment on above: Performed By: #### C BC ####[facility] Gtnotdwvrg4236 [place] [address]Dr. Suyapaviviana Clement MANUAL DIFF REQ NO Normal The [facility] Comment on above: Performed By: #### C BC ####[facility] Ntsafbcmip2099 [place] [phone]. Abiel Urbano MCH (RBC) [Entitic mass] 29.4 pg Normal 26.7-34.0 The [facility] Comment on above: Performed By: #### C BC ####[facility] Ydwqctyofj[address] [place], [place] [address]Dr. Abiel Urbano MCHC (RBC) [Mass/Vol] 32.8 g/dL Normal 29.9-35.2 The [facility] Comment on above: Performed By: #### C BC ####[facility] Vuwuttnaxz4417[address] [place], [place] [address]Dr. Suyapaviviana Clement MCV (RBC) [Entitic vol] 89.8 fL Normal 81.0-99.0 The [facility] Comment on above: Performed By: #### C BC ####[facility] Harnzfykdo[address] [place], [place] [address]Dr. Abiel Clement MONO # 0.7 103/ul Normal 0.3-0.8 The [facility] Comment on above: Performed By: #### C BC ####[facility] Umxbhdjrhr[address] [place], [place] [address]Dr. Suyapaviviana Clement Monocytes/100 WBC (Bld) 9.2 % Normal 1.7-12.0 The [facility] Comment on above: Performed By: #### C BC ####[facility] Qzorkogogh1369[address] [place], [place] [address]Dr. Abiel Clement NEUT # 4.6 103/ul Normal 1.4-6.5 The [facility] Comment on above: Performed By: #### C BC ####[facility] Afuhjwzpzy1599 [place] [address]Dr. Abiel Clement Neutrophils/100 WBC (Bld) 63.1 % Normal 43.0-75.0 [facility] Comment on above: Performed By: #### C BC ####[facility] Usmacldhmi0739[address] [place], [place] [address]Dr. Abiel Clement Platelet mean volume (Bld) [Entitic vol] 11.4 fL Normal 9.5-13.5 [facility] Comment on above: Performed By: #### C BC ####[facility] Pmssbjyjpi67[address] [place], [place] [address]Dr. Abiel Clement PLT 309 103/ul Normal 150-450 [facility] Comment on above: Performed By: #### C BC ####[facility] Lwbggvahlj9198[address] [place], [place] [address]Dr. Abiel Clement RBC 4.72 106/ul Normal 4.20-5.40 [facility] Comment on above: Performed By: #### C BC ####[facility] Rabfykjton8[address] [place], [place] [address]Dr. Abiel Clement WBC 7.3 103/ul Normal 4.0-11.0 [facility] Comment on above: Performed By: #### C BC ####[facility] Icoicghtep35[address] [place], [place] [address]Dr. Abiel Clement PROF CHEM 8 (BAS METB)on Anion gap [Moles/Vol] 12.2 mmol/L Normal [facility] Comment on above: Performed By: #### B MP ####[facility] Tkapfsyklu[address] [place], [place] [address]Dr. Abiel Clement Calcium [Mass/Vol] 9.2 mg/dL Normal 8.5-10.1 [facility] Comment on above: Performed By: #### B MP ####[facility] Inagdrnapl6170[address] [place], [place] [address]Dr. Abiel Clement Chloride [Moles/Vol] 102 mmol/L Normal 98-107 [facility] Comment on above: Performed By: #### B MP ####[facility] Wnhvcrhjuf6156 [place] [phone]. Abiel Clement CO2 [Moles/Vol] 26.9 mmol/L Normal 21.0-32.0 The [facility] Comment on above: Performed By: #### B MP ####[facility] Rdjnsyqkmc2900 [place] [address]Dr. Abiel Clement Creatinine [Mass/Vol] 0.99 mg/dL Normal 0.55-1.02 The [facility] Comment on above: Performed By: #### B MP ####[facility] Mhkovvdpsx194[address] [place], [place] [address]Dr. Abiel Urbano EGFR-AF TANZANIAN >=60 Normal >=60 The [facility] Comment on above: Performed By: #### B MP ####[facility] Mptmtzkxcl963[address] [place], [place] [address]Dr. Abiel Clement EGFR-NON AF TANZANIAN 57 mL/min/1.73m2 Critically low >=60 The [facility] Comment on above: Performed By: #### B MP ####[facility] Whyjjjgsus7580[address] [place], [place] [address]Dr. Abiel Clement Glucose [Mass/Vol] 103 mg/dL Normal 74-106 The [facility] Comment on above: Performed By: #### B MP ####[facility] Lhgpaldajz34[address] [place], [place] [address]Dr. Abiel Clement Potassium [Moles/Vol] 4.1 mmol/L Normal 3.5-5.1 The [facility] Comment on above: Performed By: #### B MP ####[facility] Fnoyzllgjx6[address] [place], [place] [address]Dr. Abiel Clement Sodium [Moles/Vol] 137 mmol/L Normal 136-145 [facility] Comment on above: Performed By: #### B MP ####[facility] Bfnowkairr4064[address] [place], [place] [address]Dr. Abiel Clement Urea nitrogen [Mass/Vol] 27.0 mg/dL Critically high 7.0-18.0 The [facility] Comment on above: Performed By: #### B MP ####[facility] Yyigspgens7061 [place] [address]Dr. Abiel Clement Urea nitrogen/Creatinine [Mass ratio] 27.3 mg/mg Normal The [facility] Comment on above: Performed By: #### B MP ####[facility] Qynwgpqhrm9[address] [place] [address]Dr. Abiel Clement PROTIMEon 03-01-2022 INR Coag (PPP) [Relative time] 0.97 {INR} Normal The [facility] Comment on above: Performed By: #### P TT, PT ####[facility] Aynazmixnt96[address] [place], [place] [address]Dr. Abiel Clement INR GUIDELINES SEE BELOW Normal The [facility] Comment on above: Result Comment: GELY RED INR: 2.0 - 3.0 CONDITIONS NOT LISTED BELOW 2.5 - 3.5 FOR PROSTHETIC HEART VALVE REPLACEMENT 2.5 - 3.5 RECURRENT THROMBOSIS Performed By: #### P TT, PT ####[facility] Yanxkqiifl7[address] [place], [place] [address]Dr. Abiel Clement PT Coag (PPP) [Time] 10.5 s Normal 9.0-11.6 The [facility] Comment on above: Performed By: #### P TT, PT ####[facility] Twjrnibcqg509[address] [place], [place] [address]Dr. Abiel Clement PTTon 03-01-2022 aPTT Coag (Bld) [Time] 24.8 s Normal 22.3-36.2 The [facility] Comment on above: Performed By: #### P TT, PT ####[facility] Cchqvdldxu26[address] [place], [place] [address]Dr. Abiel Clement US CAROTID ART BILon 022 US CAROTID ART VIC Normal The [facility] XR FOOT VIC MIN 3 VIEWSon XR FOOT VIC MIN 3 VIEWS Normal The [facility] AMYLASEon 11-03-2021 Amylase [Catalytic activity/Vol] 66 U/L Normal 31-110 The [facility] Comment on above: Performed By: #### C MP, BENNY, LIPA ####[facility] Smhxrclvme[address] [place], [place] [address]Dr. Abiel Clement CBC AUTO DIFFon 11-03-2021 BASO # 0.1 103/ul Normal 0.0-0.1 The [facility] Comment on above: Performed By: #### C BC ####[facility] Oidahnwsrx29[address] [place], [place] [address]Dr. Abiel Urbano Basophils/100 WBC (Bld) 1.1 % Normal 0.2-2.0 The [facility] Comment on above: Performed By: #### C BC ####[facility] Imdoytxakk39[address] [place], [place] [address]Dr. Abiel Clement EO # 0.1 103/ul Normal 0.0-0.7 The [facility] Comment on above: Performed By: #### C BC ####[facility] Tnkznjpuhg[address] [place], [place] [address]Dr. Abiel Clement Eosinophils/100 WBC (Bld) 2.5 % Normal 0.9-7.0 The [facility] Comment on above: Performed By: #### C BC ####[facility] Cymgpkrokm[address] [place], [place] [address]Dr. Suyapaviviana Clement Erythrocyte distribution width (RBC) [Ratio] 14.6 % Normal 11.0-15.0 The [facility] Comment on above: Performed By: #### C BC ####[facility] Qsyofyktla[address] [place], [place] [address]Dr. Abiel Clement Hematocrit (Bld) [Volume fraction] 47.4 % Normal 36.0-48.0 The [facility] Comment on above: Performed By: #### C BC ####[facility] Caxvtixymi[address] [place], [place] [address]Dr. Abiel Clement Hemoglobin (Bld) [Mass/Vol] 15.4 g/dL Normal 12.0-16.0 The [facility] Comment on above: Performed By: #### C BC ####[facility] Emrhznbvaj1584[address] [place], [place] [address]Dr. Abiel Clement IG # 0.01 10e3/ul Normal 0.00-0.03 The [facility] Comment on above: Performed By: #### C BC ####[facility] Anwddivocc37[address] [place] [id number]. Suyapaviviana Clement IG % 0.2 % Normal 0.0-0.5 The [facility] Comment on above: Performed By: #### C BC ####[facility] Nunyvurvfg[address] [place] [address]Dr. Abiel Clement LYMPH # 1.6 103/ul Normal 1.2-3.8 The [facility] Comment on above: Performed By: #### C BC ####[facility] Zldrmkumyr[address] [place], [place] [address]DrKasia Clement Lymphocytes/100 WBC (Bld) 27.3 % Normal 20.5-60.0 The [facility] Comment on above: Performed By: #### C BC ####[facility] Dhpyevmliv74[address] [place], [place] [address]Dr. Abiel Clement MANUAL DIFF REQ NO Normal The [facility] Comment on above: Performed By: #### C BC ####[facility] Cpzynlvilm01[address] [place] [address]Dr. Abiel Urbano MCH (RBC) [Entitic mass] 28.1 pg Normal 26.7-34.0 The [facility] Comment on above: Performed By: #### C BC ####[facility] Iakcjmctdy8[address] [place], [place] [address]Dr. Abiel Urbano MCHC (RBC) [Mass/Vol] 32.5 g/dL Normal 29.9-35.2 The [facility] Comment on above: Performed By: #### C BC ####[facility] Tugykqveiq[address] [place], [place] [address]DrKasia Clement MCV (RBC) [Entitic vol] 86.5 fL Normal 81.0-99.0 The [facility] Comment on above: Performed By: #### C BC ####[facility] Cmhgccjpob[address] [place], [place] [address]DrKasia Clement MONO # 0.5 103/ul Normal 0.3-0.8 The [facility] Comment on above: Performed By: #### C BC ####[facility] [address]ax[address] [place], [place] [address]DrKasia Abiel Clement Monocytes/100 WBC (Bld) 8.5 % Normal 1.7-12.0 The [facility] Comment on above: Performed By: #### C BC ####[facility] Irtdcryuld0[address] [place] [address]Dr. Abiel Clement NEUT # 3.4 103/ul Normal 1.4-6.5 The [facility] Comment on above: Performed By: #### C BC ####[facility] Mhclefujtv1584 [place] [address]Dr. Abiel Clement Neutrophils/100 WBC (Bld) 60.4 % Normal 43.0-75.0 The [facility] Comment on above: Performed By: #### C BC ####[facility] Bqeovgqdgw4997 [place] [address]Dr. Abiel Clement Platelet mean volume (Bld) [Entitic vol] 11.6 fL Normal 9.5-13.5 The [facility] Comment on above: Performed By: #### C BC ####[facility] Xiqxdhwsdy9971 [place] [address]Dr. Abiel Clement PLT 257 103/ul Normal 150-450 The [facility] Comment on above: Performed By: #### C BC ####[facility] Vgnpbjghnv[address] [place], [place] [address]Dr. Abiel Clement RBC 5.48 106/ul Critically high 4.20-5.40 The [facility] Comment on above: Performed By: #### C BC ####[facility] Brinpjwklw8894 [place] [address]Dr. Abiel Clement WBC 5.7 103/ul Normal 4.0-11.0 The [facility] Comment on above: Performed By: #### C BC ####[facility] Jtfauvhnxi[address] [place] [address]Dr. Abiel Clement LIPASEon 11-03-2021 Lipase [Catalytic activity/Vol] 32.0 U/L Normal 23.0-300.0 The [facility] Comment on above: Performed By: #### C MP, BENNY, LIPA ####[facility] Pgatoljnci4057 [place] [address]Dr. Abiel Clement PROF 14(COMP METB)on 022 Albumin [Mass/Vol] 3.6 g/dL Normal 3.5-5.0 [facility] Comment on above: Performed By: #### C MP, BENNY, LIPA ####[facility] Cduszvdezz7965 [place] [address]Dr. Abiel Clement Albumin/Globulin [Mass ratio] 0.8 {ratio} Normal [facility] Comment on above: Performed By: #### C MP, BENNY, LIPA ####[facility] Yyjvoqltvn0823 [place] [address]Dr. Abiel Clement ALP [Catalytic activity/Vol] 325 U/L Critically high 38-126 [facility] Comment on above: Performed By: #### C MP, BENNY, LIPA ####[facility] Ynvcljwrck[address] [place], [place] [address]Dr. Abiel Clement ALT [Catalytic activity/Vol] 103 U/L Critically high 9-52 [facility] Comment on above: Performed By: #### C MP, BENNY, LIPA ####[facility] Zudiyzqhfg6[address] [place] [address]Dr. Abiel Clement Anion gap [Moles/Vol] 13.1 mmol/L Normal [facility] Comment on above: Performed By: #### C MP, BENNY, LIPA ####[facility] Krzpazfxod9[address] [place] [address]Dr. Abiel Clement AST [Catalytic activity/Vol] 78 U/L Critically high 14-36 [facility] Comment on above: Performed By: #### C MP, BENNY, LIPA ####[facility] [id number] [place] [address]Dr. Abiel Clement Bilirubin [Mass/Vol] 0.4 mg/dL Normal 0.2-1.3 [facility] Comment on above: Performed By: #### C MP, BENNY, LIPA ####[facility] [id number] [place] [address]Dr. Abiel Clement Calcium [Mass/Vol] 9.6 mg/dL Normal 8.4-10.2 [facility] Comment on above: Performed By: #### C BENNY PEDERSEN, LIPA ####[facility] [id number] [place] [address]Dr. Abiel Clement Chloride [Moles/Vol] 102 mmol/L Normal 98-107 [facility] Comment on above: Performed By: #### C SLAVA BENNY, LIPA ####[facility] [id number] [place] [address]Dr. Abiel Clement CO2 [Moles/Vol] 21.5 mmol/L Critically low 22.0-30.0 [facility] Comment on above: Performed By: #### C BENNY PEDERSEN LIPA ####[facility] [id number] [place], [place] [address]Dr. Abiel Clement Creatinine [Mass/Vol] 1.51 mg/dL Critically high 0.52-1.04 [facility] Comment on above: Performed By: #### C SLAVA BENNY, LIPA ####[facility] [id number] [place] [address]Dr. Abiel Clement EGFR-AF TANZANIAN 42 mL/min/1.73m2 Critically low >=60 [facility] Comment on above: Performed By: #### C SLAVA BENNY, LIPA ####[facility] [id number] [place] [address]Dr. Abiel Clement EGFR-NON AF TANZANIAN 35 mL/min/1.73m2 Critically low >=60 The [facility] Comment on above: Performed By: #### C MP BENNY, LIPA ####[facility] [id number] [place] [address]Dr. Abiel Clement Globulin (S) [Mass/Vol] 4.5 g/dL Normal The [facility] Comment on above: Performed By: #### C MP BENNY, LIPA ####[facility] [id number] [place] [address]Dr. Abiel Clement Glucose [Mass/Vol] 167 mg/dL Critically high 74-106 [facility] Comment on above: Performed By: #### C MP BENNY, LIPA ####[facility] [id number] [place] [address]Dr. Abiel Clement Potassium [Moles/Vol] 4.6 mmol/L Normal 3.4-5.0 [facility] Comment on above: Performed By: #### C MP, BENNY, LIPA ####[facility] [id number] [place] [address]Dr. Abiel Clement Protein [Mass/Vol] 8.1 g/dL Normal 6.1-8.2 [facility] Comment on above: Performed By: #### C MP, BENNY, LIPA ####[facility] [id number] [place] [address]Dr. Abiel Clement Sodium [Moles/Vol] 132 mmol/L Critically low 137-145 [facility] Comment on above: Performed By: #### C MP, BENNY, LIPA ####[facility] [id number] [place] [address]Dr. Abiel Clement Urea nitrogen [Mass/Vol] 35.0 mg/dL Critically high 7.0-17.0 [facility] Comment on above: Performed By: #### C SLAVA, BENNY, LIPA ####[facility] [id number] [place] [address]Dr. Abiel Clement Urea nitrogen/Creatinine [Mass ratio] 23.2 mg/mg Normal [facility] Comment on above: Performed By: #### C MP, BENNY, LIPA ####[facility] [id number] [place] [address]Dr. Abiel Clement XR ABD FLAT UP_PA Tl 11-03 XR ABD FLAT UP_PA CH Normal The [facility] XR FOOT LT MIN 3 VIEWSon XR FOOT LT MIN 3 VIEWS Normal The [facility] COMPREHENSIVE METABOLIC PANE Neftali 09-23-2021 Albumin [Mass/Vol] 4.1 g/dL Normal 3.6-5.1 [facility] Comment on above: Performed By: #### 1 8911, 8960 #### [facility] [address], [address] [place] [address] [employer] Laborer: Christian Dove MD Albumin/Globulin [Mass ratio] 1.2 {ratio} Normal 1.0-2.5 [facility] Comment on above: Performed By: #### 1 0231, 7600 #### [facility] of [address], [address] [place] [address] [employer] Laborer: Christian Dove MD ALP [Catalytic activity/Vol] 206 U/L High 37-153 [facility] Comment on above: Performed By: #### 1 0231, 7600 #### [facility] of [address], [address] [place] [address] [employer] Laborer: Christian Dove MD ALT [Catalytic activity/Vol] 32 U/L High 6-29 [facility] Comment on above: Result Comment: NO C OLLECTION DATE RECEIVED. WE HAVE USED THE DATE THE SPECIMEN WAS RECEIVED BY THIS LABORATORY THE COLLECTION DATE. IF THIS IS INCORRECT, PLEASE CONTACT CLIENT SERVICES. PHONE NUMBER: [phone] Performed By: #### 1 0231, 7600 #### [facility] of [address], [address] [place] [address] [employer] Laborer: Christian Dove MD AST [Catalytic activity/Vol] 28 U/L Normal 10-35 [facility] Comment on above: Performed By: #### 1 0231, 7600 #### [facility] of [address], [address] [place] [address] [employer]em[employer] Laborer: Christian Dove MD Bilirubin [Mass/Vol] 0.5 mg/dL Normal 0.2-1.2 [facility] Comment on above: Performed By: #### 1 0231, 7600 #### [facility] of [address], [address] [place] [address] [employer]em[employer] Laborer: Christian Dove MD BUN/CREATININE RATIO NOT APPLICABLE Normal 6-22 [facility] Comment on above: Performed By: #### 1 0231, 7600 #### [facility] [address], [address] [place] [address] [employer] Laborer: Christian Dove MD Calcium [Mass/Vol] 9.6 mg/dL Normal 8.6-10.4 [facility] Comment on above: Performed By: #### 1 230, 7600 #### [facility] [address], [address] [place] [address] [employer] Laborer: Christian Dove MD Chloride [Moles/Vol] 101 mmol/L Normal 98-110 [facility] Comment on above: Performed By: #### 1 023, 7600 #### [facility] [address], [address] [place] [address] [employer]esem[employer] Laborer: Christian Dove MD CO2 [Moles/Vol] 27 mmol/L Normal 20-32 [facility] Comment on above: Performed By: #### 1 023, 7600 #### [facility] [place] [address] [employer]em[employer] Laborer: Christian Dove MD Creatinine [Mass/Vol] 0.88 mg/dL Normal 0.50-0.99 [facility] Comment on above: Result Comment: For patients >49 years of age, the reference limit for Creatinine is approximately 13% higher for people identified as -Malaysian. Performed By: #### 1 230, 7600 #### [facility] [place] [address] [employer] Laborer: Christian Dove MD eGFR NON-AFR. TANZANIAN 71 mL/min/1.73m2 Normal > OR = 60 [facility] Comment on above: Performed By: #### 1 023, 7600 #### [facility] [place] [address] [employer] Laborer: Christian Dove MD GFR/1.73 sq M.predicted among blacks MDRD (S/P/Bld) [Vol rate/Area] 82 mL/min/{1.73_m2} Normal > OR = 60 [facility] Comment on above: Performed By: #### 1 230, 7600 #### [facility] [address], [address] [place] [address] [employer]esem[employer] Laborer: Christian Dove MD Globulin (S) [Mass/Vol] 3.3 g/dL Normal 1.9-3.7 [facility] Comment on above: Performed By: #### 1 023, 7600 #### [facility] of [place] [address] [employer]esemaking Laborer: Christian Dove MD Glucose [Mass/Vol] 269 mg/dL High 65-99 [facility] Comment on above: Result Comment: Fasting reference interval For someone without known diabetes, a glucose value >125 mg/dL indicates that they may have diabetes and this should be confirmed with a follow-up test. Performed By: #### 1 023, 0 #### [facility] [place] [address] [employer] Laborer: Christian Dove MD Potassium [Moles/Vol] 4.3 mmol/L Normal 3.5-5.3 [facility] Comment on above: Performed By: #### 1 230, 7599 #### [facility] of [place] [address] [employer]esem[employer] Laborer: Christian Dove MD Protein [Mass/Vol] 7.4 g/dL Normal 6.1-8.1 [facility] Comment on above: Performed By: #### 1 023, 0 #### [facility] [place] [address] Cheesemaking Laborer: Christian Dove MD Sodium [Moles/Vol] 135 mmol/L Normal 135-146 [facility] Comment on above: Performed By: #### 1 023, 0 #### [facility] of [place] [address] Cheesem[employer] Laborer: Christian Dove MD Urea nitrogen [Mass/Vol] 18 mg/dL Normal 7-25 [facility] Comment on above: Performed By: #### 1 023, 7600 #### [facility] of [place] [address] [employer]esem[employer] Laborer: Christian Dove MD LIPID PANEL, STANDARD 09-05 Cholesterol [Mass/Vol] 123 mg/dL Normal <200 [facility] Comment on above: Performed By: #### 1 023, 7600 #### [facility] [address], [address] [place] [address] Cheesemaking Laborer: Christian Dove MD Cholesterol in HDL [Mass/Vol] 36 mg/dL Low > OR = 50 [facility] Comment on above: Performed By: #### 1 023, 0 #### [facility] [address], [address] [place] [address] Cheesemaking Laborer: Christian Dove MD Cholesterol in LDL [Mass/Vol] [...] Ciro PENN et al. MARIA T. 2013;310(19): 3860-5220 (http://[email or web address]) Performed By: #### 1 230, 0 #### [facility] [place] [address] Cheesemaking Laborer: Christian Dove MD Cholesterol.total/Cho lesterol in HDL [Mass ratio] 3.4 {ratio} Normal <5.0 [facility] Comment on above: Performed By: #### 1 023, 0 #### [facility] [address], [address] [place] [address] Cheesemaking Laborer: Christian Dove MD NON HDL CHOLESTEROL 87 mg/dL (calc) Normal <130 [facility] Comment on above: Result Comment: For patients with diabetes plus 1 major ASCVD risk factor, treating to a non-HDL-C goal of <100 mg/dL (LDL-C of <70 mg/dL) is considered a therapeutic option. Performed By: #### 1 023, 7600 #### [facility] [address], [address] [place] [address] [employer]esemaking Laborer: Christian Dove MD Triglyceride [Mass/Vol] 134 mg/dL Normal <150 [facility] Comment on above: Performed By: #### 1 023, 7600 #### [facility] [address], [address] [place] [address] Cheesemaking Laborer: Christian Dove MD COVID Quick Testingon 2020 Result Positive [employer] Other POC GLUCOSE LABon 07-14-2020 Glucose [Mass/Vol] 311 mg/dL High 70-100 [facility] Comment on [facility]: Performed By: #### 8 5499 #### [facility] [address] [place] [address], [place] Glucose [Mass/Vol] 231 mg/dL High 70-100 [facility] Comment on above: Performed By: #### 8 5499 #### [facility] [address] [place] [address], [place] POC GLUCOSE LABon 07-13-2020 Glucose [Mass/Vol] 173 mg/dL High 70-100 [facility] Comment on above: Performed By: #### 8 5499 #### [facility] [address] [place] [address], [place] Glucose [Mass/Vol] 117 mg/dL High 70-100 [facility] Comment on above: Performed By: #### 3 1792 #### [facility] [address] [place] [address], [place] Glucose [Mass/Vol] 282 mg/dL High 70-100 [facility] Comment on above: Performed By: #### 8 5499 #### [facility] [address] [place] [address], [place] Glucose [Mass/Vol] 288 mg/dL High 70-100 [facility] Comment on above: Performed By: #### 8 5499 ####[facility] [place] [address], [place] POC GLUCOSE LABon 07-12-2020 Glucose [Mass/Vol] 281 mg/dL High 70-100 [facility] Comment on above: Performed By: #### 8 5499 ####[facility] [place] [address], [place] Glucose [Mass/Vol] 102 mg/dL High 70-100 [facility] Comment on above: Performed By: #### 8 5499 ####[facility] [place] [address], [place] Glucose [Mass/Vol] 213 mg/dL High 70-100 [facility] Comment on above: Performed By: #### 8 5499 ####[facility] [place] [address], [place] Glucose [Mass/Vol] 195 mg/dL High 70-100 [facility] Comment on above: Performed By: #### 3 1792 #### [facility] [address] [place] [address], [place] POC GLUCOSE LABon 07-11-2020 Glucose [Mass/Vol] 221 mg/dL High 70-100 [facility] Comment on above: Performed By: #### 8 5499 #### [facility] [address] [place] [address], [place] Glucose [Mass/Vol] 201 mg/dL High 70-100 [facility] Comment on above: Performed By: #### 0 0071, 31606 #### [facility] [address] [place] [address], [place] Glucose [Mass/Vol] 279 mg/dL High 70-100 [facility] Comment on above: Performed By: #### 8 5499 ####[facility] [place] [address], [place] Glucose [Mass/Vol] 214 mg/dL High 70-100 [facility] Comment on above: Performed By: #### 3 1792 #### [facility] [address] [place] [address], [place] POC GLUCOSE LABon 07-10-2020 Glucose [Mass/Vol] 207 mg/dL High 70-100 [facility] Comment on above: Performed By: #### 8 5499 #### [facility] [address] [place] [address], [place] Glucose [Mass/Vol] 119 mg/dL High 70-100 [facility] Comment on above: Performed By: #### 8 5499 #### [facility] [address] [place] [address], [place] Glucose [Mass/Vol] 282 mg/dL High 70-100 [facility] Comment on above: Performed By: #### 8 5499 #### [facility] [address] [place] [address], [place] Glucose [Mass/Vol] 212 mg/dL High 70-100 [facility] Comment on above: Performed By: #### 8 5499 #### [facility] [address] [place] [address], [place] POC GLUCOSE LABon 07-09-2020 Glucose [Mass/Vol] 134 mg/dL High 70-100 [facility] Comment on above: Performed By: #### 8 5499 ####[facility] [place] [address], [place] Glucose [Mass/Vol] 113 mg/dL High 70-100 [facility] Comment on above: Performed By: #### 8 5499 ####[facility] [place] [address], [place] Glucose [Mass/Vol] 158 mg/dL High 70-100 [facility] Comment on above: Performed By: #### 8 5499 ####[facility] [place] [address], [place] Glucose [Mass/Vol] 146 mg/dL High 70-100 [facility] Comment on above: Performed By: #### 3 1792 #### [facility] [address] [place] [place] [address], [place] BASIC METABOLIC PANELon 11-0 Calcium [Mass/Vol] 9.4 mg/dL Normal 8.6-10.3 [facility] Comment on above: Order Comment: No: D o not add to previous draw Performed By: #### 0 0071, 38772 #### [facility] [address] [place] [address], [place] Chloride [Moles/Vol] 102 mmol/L Normal 98-[address] [facility] Comment on above: Order Comment: No: D o not add to previous draw Performed By: #### 0 0071, 09895 #### [facility] [address] [place] [address], [place] CO2 [Moles/Vol] 28 mmol/L Normal 21-31 The [facility] Comment on above: Order Comment: No: D o not add to previous draw Performed By: #### 0 0071, 54071 #### [facility] [address] [place] [address], [place] Creatinine [Mass/Vol] 0.73 mg/dL Normal 0.60-1.[address] [facility] Comment on above: Order Comment: No: D o not add to previous draw Performed By: #### 0 0071, 68144 #### [facility] [address] [place] [address], [place] GFR/1.73 sq M predicted among blacks MDRD (S/P/Bld) [Vol rate/Area] mL/min/{1.73_m2} Normal >[address] [facility] Comment on above: Order Comment: No: D o not add to previous draw Performed By: #### 0 0071, 67444 #### [facility] [address] [place] [address], [place] GFR/1.73 sq M predicted among non-blacks MDRD (S/P/Bld) [Vol rate/Area] mL/min/{1.73_m2} Normal >[address] [facility] Comment on above: Order Comment: No: D o not add to previous draw Performed By: #### 0 0071, 19965 #### [facility] [address] [place] [address], [place] Glucose [Mass/Vol] 162 mg/dL High 70-100 [facility] Comment on above: Order Comment: No: D o not add to previous draw Performed By: #### 0 0071, 35058 #### [facility] [address] [place] [address], [place] Potassium [Moles/Vol] 3.8 mmol/L Normal 3.5-5.[address] [facility] Comment on above: Order Comment: No: D o not add to previous draw Performed By: #### 0 0071, 67065 #### [facility] [address] [place] [address], [place] Sodium [Moles/Vol] 138 mmol/L Normal 136-145 [facility] Comment on above: Order Comment: No: D o not add to previous draw Performed By: #### 0 0071, 36647 #### [facility] [address] [place] [address], [place] Urea nitrogen [Mass/Vol] 15 mg/dL Normal 7-[address] [facility] Comment on above: Order Comment: No: D o not add to previous draw Performed By: #### 0 0071, 91499 #### [facility] [address] [place] [address], [facility] CBC W/DIFFon 07-08-2020 ABS BASOPHILS 0.1 10*3/uL Normal 0.0-0.2 The [facility] Comment on above: Order Comment: No: D o not add to previous draw Performed By: #### 8 5499 #### [facility] [address] [place] [address], [facility] ABS IMM GRANS 0.0 10*3/uL Normal 0.0-0.2 The [facility] Comment on above: Order Comment: No: D o not add to previous draw Performed By: #### 8 5499 #### [facility] [address] [place] [address], [facility] ABS NEUTROPHILS 3.5 10*3/uL Normal 1.6-7.6 The [facility] Comment on above: Order Comment: No: D o not add to previous draw Performed By: #### 8 5499 #### [facility] [address] [facility] [place] [address], [facility] Basophils/100 WBC (Bld) 0.9 % Normal 0.0-1.[address] [facility] Comment on above: Order Comment: No: D o not add to previous draw Performed By: #### 8 5499 #### [facility] [address] [facility] [place] [address], [facility] Eosinophils (Bld) [#/Vol] 0.3 10*3/uL Normal 0.0-0.[address] [facility] Comment on above: Order Comment: No: D o not add to previous draw Performed By: #### 8 5499 #### [facility] [address] [place] [address], [facility] Eosinophils/100 WBC (Bld) 3.9 % Normal 0.0-6.[address] [facility] Comment on above: Order Comment: No: D o not add to previous draw Performed By: #### 8 5499 #### [facility] [address] [place] [address], [facility] Erythrocyte distribution width (RBC) [Ratio] 15.1 % High 11.5-15.[address] [facility] Comment on above: Order Comment: No: D o not add to previous draw Performed By: #### 8 5499 #### [facility] [address] [place] [address], [facility] Hematocrit (Bld) [Volume fraction] 41.0 % Normal 36.0-45.[address] [facility] Comment on above: Order Comment: No: D o not add to previous draw Performed By: #### 8 5499 #### [facility] [address] [place] [id number], [facility] Hemoglobin (Bld) [Mass/Vol] 13.0 g/dL Normal 12.0-15.[address] [facility] Comment on above: Order Comment: No: D o not add to previous draw Performed By: #### 8 5499 #### [facility] [address] [place] [id number], [facility] IMMATURE GRANS 0.5 % Normal 0.0-1.0 The [facility] Comment on above: Order Comment: No: D o not add to previous draw Performed By: #### 8 5499 #### [facility] [address] [place] [id number], [facility] Lymphocytes (Bld) [#/Vol] 1.8 10*3/uL Normal 1.2-4.[address] [facility] Comment on above: Order Comment: No: D o not add to previous draw Performed By: #### 8 5499 #### [facility] [address] [place] [id number], [facility] Lymphocytes/100 WBC (Bld) 28.2 % Normal 20.0-45.[address] [facility] Comment on above: Order Comment: No: D o not add to previous draw Performed By: #### 8 5499 #### [facility] [address] [place] [id number], [facility] MCH (RBC) [Entitic mass] 28.6 pg Normal 27.0-33.[address] [facility] Comment on above: Order Comment: No: D o not add to previous draw Performed By: #### 8 5499 #### [facility] [address] [place] [address], [facility] MCHC (RBC) [Mass/Vol] 31.7 g/dL Low 32.0-35.[address] [facility] Comment on above: Order Comment: No: D o not add to previous draw Performed By: #### 8 5499 #### [facility] [address] [place] [id number], [facility] MCV (RBC) [Entitic vol] 90.3 fL Normal 82.0-98.[address] [facility] Comment on above: Order Comment: No: D o not add to previous draw Performed By: #### 8 5499 #### [facility] [address] [place] [id number], [facility] Monocytes (Bld) [#/Vol] 0.7 10*3/uL Normal 0.1-1.[address] [facility] Comment on above: Order Comment: No: D o not add to previous draw Performed By: #### 8 5499 #### [facility] [address] [place] [address], [facility] MONOS 11.1 % Normal 5.0-12.[address] [facility] Comment on above: Order Comment: No: D o not add to previous draw Performed By: #### 8 5499 #### [facility] [address] [place] [address], [facility] Neutrophils/100 WBC (Bld) 55.4 % Normal 40.0-72.[address] [facility] Comment on above: Order Comment: No: D o not add to previous draw Performed By: #### 8 5499 #### [facility] [address] [place] [address], [place] Nucleated RBC/100 WBC (Bld) [Ratio] 0 % Normal 0-[address] [facility] Comment on above: Order Comment: No: D o not add to previous draw Performed By: #### 8 5499 #### [facility] [address] [place] [address], [place] PLAT CNT 230 10*3/uL Normal 150-400 The [facility] Comment on above: Order Comment: No: D o not add to previous draw Performed By: #### 8 5499 #### [facility] [address] [place] [address], [place] RBC (Bld) [#/Vol] 4.54 10*6/uL Normal 3.80-5.00 The [facility] Comment on above: Order Comment: No: D o not add to previous draw Performed By: #### 8 5499 #### [facility] [address] [place] [address], [place] WBC (Bld) [#/Vol] 6.38 10*3/uL Normal 4.00-10.60 The [facility] Comment on above: Order Comment: No: D o not add to previous draw Performed By: #### 8 5499 #### [facility] [address] [place] [address], [place] POC GLUCOSE LABon 07-08-2020 Glucose [Mass/Vol] 164 mg/dL High 70-100 [facility] Comment on above: Performed By: #### 8 5499 #### [facility] [address] [place] [address], [place] Glucose [Mass/Vol] 137 mg/dL High 70-100 [facility] Comment on above: Performed By: #### 8 5499 ####[facility] [place] [address], [place] Glucose [Mass/Vol] 247 mg/dL High 70-100 [facility] Comment on above: Performed By: #### 8 5499 ####[facility] [place] [address], [place] Glucose [Mass/Vol] 154 mg/dL High 70-100 [facility] Comment on above: Performed By: #### 8 5499 ####[facility] [place] [address], [place] Glucose [Mass/Vol] 158 mg/dL High 70-100 [facility] Comment on above: Performed By: #### 8 [id number] #### [facility] [address] [place] [address], [place] POC GLUCOSE LABon 07-07-2020 Glucose [Mass/Vol] 144 mg/dL High 70-100 [facility] Comment on above: Performed By: #### 3 1792 #### [facility] [address] [place] [address], [place] Glucose [Mass/Vol] 184 mg/dL High 70-100 [facility] Comment on above: Performed By: #### 8 5499 ####[facility] [place] [address], [place] Glucose [Mass/Vol] 171 mg/dL High 70-100 [facility] Comment on above: Performed By: #### 8 5499 ####[facility] [place] [address], [place] Glucose [Mass/Vol] 98 mg/dL Normal 70-100 [facility] Comment on above: Performed By: #### 8 [id number] #### [facility] [address] [place] [address], [place] POC GLUCOSE LABon 07-06-2020 Glucose [Mass/Vol] 220 mg/dL High 70-100 [facility] Comment on above: Performed By: #### 8 5499 ####[facility] [place] [address], [place] Glucose [Mass/Vol] 215 mg/dL High 70-100 [facility] Comment on above: Performed By: #### 8 5499 ####[facility] [place] [address], [place] Glucose [Mass/Vol] 288 mg/dL High 70-100 [facility] Comment on above: Performed By: #### 3 1792 #### [facility] [address] [place] [address], [place] POC GLUCOSE LABon 07-05-2020 Glucose [Mass/Vol] 111 mg/dL High 70-100 [facility] Comment on above: Performed By: #### 8 [id number] #### [facility] [address] [place] [address], [place] Glucose [Mass/Vol] 144 mg/dL High 70-100 [facility] Comment on above: Performed By: #### 8 5499 #### [facility] [address] [place] [address], [place] Glucose [Mass/Vol] 151 mg/dL High 70-100 [facility] Comment on above: Performed By: #### 8 5499 ####[facility] [place] [address], [place] Glucose [Mass/Vol] 157 mg/dL High 70-100 [facility]: Performed By: #### 8 5499 ####[facility] [place] [address], [place] Glucose [Mass/Vol] 154 mg/dL High 70-100 [facility] Comment on above: Performed By: #### 8 5499 ####[facility] [place] [address], [place] BASIC METABOLIC PANELon 10-3 0-2020 Calcium [Mass/Vol] 9.2 mg/dL Normal 8.6-10.3 [facility] Comment on above: Order Comment: No: D o not add to previous draw Performed By: #### 0 0071, 55453 #### [facility] [address] [place] [address], [place] Chloride [Moles/Vol] 101 mmol/L Normal 98-[address] [facility] Comment on above: Order Comment: No: D o not add to previous draw Performed By: #### 0 0071, 83069 #### [facility] [address] [place] [address], [place] CO2 [Moles/Vol] 26 mmol/L Normal 21-31 [facility] Comment on above: Order Comment: No: D o not add to previous draw Performed By: #### 0 0071, 33660 #### [facility] [address] [place] [address], [place] Creatinine [Mass/Vol] 0.75 mg/dL Normal 0.60-1.[address] [facility] Comment on above: Order Comment: No: D o not add to previous draw Performed By: #### 0 0071, 23171 #### [facility] [address] [place] [address], [place] GFR/1.73 sq M predicted among blacks MDRD (S/P/Bld) [Vol rate/Area] mL/min/{1.73_m2} Normal >[address] [facility] Comment on above: Order Comment: No: D o not add to previous draw Performed By: #### 0 0071, 61238 #### [facility] [address] [place] [address], [place] GFR/1.73 sq M predicted among non-blacks MDRD (S/P/Bld) [Vol rate/Area] mL/min/{1.73_m2} Normal >[address] [facility] Comment on above: Order Comment: No: D o not add to previous draw Performed By: #### 0 0071, 39545 #### [facility] [address] [place] [address], [place] Glucose [Mass/Vol] 343 mg/dL High 70-100 [facility] Comment on above: Order Comment: No: D o not add to previous draw Performed By: #### 0 0071, 49425 #### [facility] [address] [place] [address], [facility] Potassium [Moles/Vol] 3.6 mmol/L Normal 3.5-5.[address] [facility] Comment on above: Order Comment: No: D o not add to previous draw Performed By: #### 0 0071, 27238 #### [facility] [address] [place] [address], [facility] Sodium [Moles/Vol] 137 mmol/L Normal 136-145 [facility] Comment on above: Order Comment: No: D o not add to previous draw Performed By: #### 0 0071, 49331 #### [facility] [address] [place] [address], [facility] Urea nitrogen [Mass/Vol] 15 mg/dL Normal 7-[address] [facility] Comment on above: Order Comment: No: D o not add to previous draw Performed By: #### 0 0071, 14517 #### [facility] [address] [place] [address], [place] CBC W/DIFFon 07-04-2020 ABS BASOPHILS 0.0 10*3/uL Normal 0.0-0.2 The [facility] Comment on above: Order Comment: No: D o not add to previous draw Performed By: #### 8 5499 #### [facility] [address] [place] [address], [place] ABS IMM GRANS 0.0 10*3/uL Normal 0.0-0.2 [facility] Comment on above: Order Comment: No: D o not add to previous draw Performed By: #### 8 5499 #### [facility] [address] [place] [address], [facility] ABS NEUTROPHILS 4.0 10*3/uL Normal 1.6-7.6 The [facility] Comment on above: Order Comment: No: D o not add to previous draw Performed By: #### 8 5499 #### [facility] [address] [place] [address], [facility] Basophils/100 WBC (Bld) 0.7 % Normal 0.0-1.[address] [facility] Comment on above: Order Comment: No: D o not add to previous draw Performed By: #### 8 5499 #### [facility] [address] [place] [address], [facility] Eosinophils (Bld) [#/Vol] 0.3 10*3/uL Normal 0.0-0.[address] [facility] Comment on above: Order Comment: No: D o not add to previous draw Performed By: #### 8 5499 #### [facility] [address] [place] [address], [facility] Eosinophils/100 WBC (Bld) 4.7 % Normal 0.0-6.[address] [facility] Comment on above: Order Comment: No: D o not add to previous draw Performed By: #### 8 5499 #### [facility] [address] [place] [address], [place] Erythrocyte distribution width (RBC) [Ratio] 15.0 % Normal 11.5-15.[address] [facility] Comment on above: Order Comment: No: D o not add to previous draw Performed By: #### 8 5499 #### [facility] [address] [place] [address], [facility] Hematocrit (Bld) [Volume fraction] 38.0 % Normal 36.0-45.[address] [facility] Comment on above: Order Comment: No: D o not add to previous draw Performed By: #### 8 5499 #### [facility] [address] [place] [id number], [facility] Hemoglobin (Bld) [Mass/Vol] 12.4 g/dL Normal 12.0-15.[address] [facility] Comment on above: Order Comment: No: D o not add to previous draw Performed By: #### 8 5499 #### [facility] [address] [place] [id number], [facility] IMMATURE GRANS 0.3 % Normal 0.0-1.0 [facility] Comment on above: Order Comment: No: D o not add to previous draw Performed By: #### 8 5499 #### [facility] [address] [place] [id number], [facility] Lymphocytes (Bld) [#/Vol] 1.1 10*3/uL Low 1.2-4.[address] [facility] Comment on above: Order Comment: No: D o not add to previous draw Performed By: #### 8 5499 #### [facility] [address] [place] [address], [facility] Lymphocytes/100 WBC (Bld) 18.1 % Low 20.0-45.[address] [facility] Comment on above: Order Comment: No: D o not add to previous draw Performed By: #### 8 [id number] #### [facility] [address] [place] [id number], [place] MCH (RBC) [Entitic mass] 29.1 pg Normal 27.0-33.[address] [facility] Comment on above: Order Comment: No: D o not add to previous draw Performed By: #### 8 [id number] #### [facility] [address] [place] [id number], [facility] MCHC (RBC) [Mass/Vol] 32.6 g/dL Normal 32.0-35.[address] [facility] Comment on above: Order Comment: No: D o not add to previous draw Performed By: #### 8 5499 #### [facility] [address] [place] [address], [facility] MCV (RBC) [Entitic vol] 89.2 fL Normal 82.0-98.[address] [facility] Comment on above: Order Comment: No: D o not add to previous draw Performed By: #### 8 5499 #### [facility] [address] [place] [id number], [facility] Monocytes (Bld) [#/Vol] 0.6 10*3/uL Normal 0.1-1.[address] [facility] Comment on above: Order Comment: No: D o not add to previous draw Performed By: #### 8 5499 #### [facility] [address] [place] [address], [facility] MONOS 9.6 % Normal 5.0-12.[address] [facility] Comment on above: Order Comment: No: D o not add to previous draw Performed By: #### 8 [id number] #### [facility] [address] [facility] [place] [address], [facility] Neutrophils/100 WBC (Bld) 66.6 % Normal 40.0-72.[address] [facility] Comment on above: Order Comment: No: D o not add to previous draw Performed By: #### 8 [id number] #### [facility] [address] [facility] [place] [address], [facility] Nucleated RBC/100 WBC (Bld) [Ratio] 0 % Normal 0-[address] [facility] Comment on above: Order Comment: No: D o not add to previous draw Performed By: #### 8 [id number] #### [facility] [address] [place] [address], [place] PLAT CNT 186 10*3/uL Normal 150-400 The [facility] Comment on above: Order Comment: No: D o not add to previous draw Performed By: #### 8 [id number] #### [facility] [address] [place] [address], [place] RBC (Bld) [#/Vol] 4.26 10*6/uL Normal 3.80-5.00 The [facility] Comment on above: Order Comment: No: D o not add to previous draw Performed By: #### 8 [id number] #### [facility] [address] [place] [address], [place] WBC (Bld) [#/Vol] 5.96 10*3/uL Normal 4.00-10.60 The [facility] Comment on above: Order Comment: No: D o not add to previous draw Performed By: #### 8 [id number] #### [facility] [address] [place] [address], [place] MAGNESIUM BLOODon 07-04-2020 Magnesium [Mass/Vol] 1.7 mg/dL Low 1.9-2.[address] [facility] Comment on above: Order Comment: No: D o not add to previous draw Performed By: #### 0 0071, 27432 #### [facility] [address] [place] [address], [place] POC GLUCOSE LABon 07-04-2020 Glucose [Mass/Vol] 143 mg/dL High 70-100 [facility] Comment on above: Performed By: #### 8 5499 #### [facility] [address] [place] [address], [place] Glucose [Mass/Vol] 226 mg/dL High 70-100 [facility] Comment on above: Performed By: #### 3 1792 #### [facility] [address] [place] [address], [place] Glucose [Mass/Vol] 340 mg/dL High 70-100 [facility] Comment on above: Performed By: #### 8 5499 #### [facility] [address] [place] [address], [place] BASIC METABOLIC PANELon 10-2 Calcium [Mass/Vol] 9.1 mg/dL Normal 8.6-10.3 [facility] Comment on above: Order Comment: No: D o not add to previous draw Performed By: #### 0 0071, 24018 #### [facility] [address] [place] [address], [place] Chloride [Moles/Vol] 104 mmol/L Normal 98-[address] [facility] Comment on above: Order Comment: No: D o not add to previous draw Performed By: #### 0 0071, 83300 #### [facility] [address] [place] [address], [place] CO2 [Moles/Vol] 27 mmol/L Normal 21-31 [facility] Comment on above: Order Comment: No: D o not add to previous draw Performed By: #### 0 0071, 91875 #### [facility] [address] [place] [address], [place] Creatinine [Mass/Vol] 0.69 mg/dL Normal 0.60-1.[address] [facility] Comment on above: Order Comment: No: D o not add to previous draw Performed By: #### 0 0071, 34886 #### [facility] [address] [place] [address], [place] GFR/1.73 sq M predicted among blacks MDRD (S/P/Bld) [Vol rate/Area] mL/min/{1.73_m2} Normal >[address] [facility] Comment on above: Order Comment: No: D o not add to previous draw Performed By: #### 0 0071, 22977 #### [facility] [address] [place] [address], [place] GFR/1.73 sq M predicted among non-blacks MDRD (S/P/Bld) [Vol rate/Area] mL/min/{1.73_m2} Normal >[address] [facility] Comment on above: Order Comment: No: D o not add to previous draw Performed By: #### 0 0071, 30158 #### [facility] [address] [place] [address], [place] Glucose [Mass/Vol] 192 mg/dL High 70-100 [facility] Comment on above: Order Comment: No: D o not add to previous draw Performed By: #### 0 0071, 97115 #### [facility] [address] [place] [address], [facility] Potassium [Moles/Vol] 3.2 mmol/L Low 3.5-5.[address] [facility] Comment on above: Order Comment: No: D o not add to previous draw Performed By: #### 0 0071, 72973 #### [facility] [address] [place] [address], [facility] Sodium [Moles/Vol] 139 mmol/L Normal 136-145 [facility] Comment on above: Order Comment: No: D o not add to previous draw Performed By: #### 0 0071, 89980 #### [facility] [address] [place] [address], [facility] Urea nitrogen [Mass/Vol] 13 mg/dL Normal 7-[address] [facility] Comment on above: Order Comment: No: D o not add to previous draw Performed By: #### 0 0071, 13422 #### [facility] [address] [place] [address], [place] CBC W/DIFFon 07-03-2020 ABS BASOPHILS 0.1 10*3/uL Normal 0.0-0.2 The [facility] Comment on above: Order Comment: No: D o not add to previous draw Performed By: #### 8 5499 #### [facility] [address] [place] [address], [place] ABS IMM GRANS 0.0 10*3/uL Normal 0.0-0.2 [facility] Comment on above: Order Comment: No: D o not add to previous draw Performed By: #### 8 5499 #### [facility] [address] [place] [address], [facility] ABS NEUTROPHILS 3.7 10*3/uL Normal 1.6-7.6 The [facility] Comment on above: Order Comment: No: D o not add to previous draw Performed By: #### 8 5499 #### [facility] [address] [place] [id number], [facility] Basophils/100 WBC (Bld) 0.8 % Normal 0.0-1.[address] [facility] Comment on above: Order Comment: No: D o not add to previous draw Performed By: #### 8 5499 #### [facility] [address] [place] [id number], [facility] Eosinophils (Bld) [#/Vol] 0.3 10*3/uL Normal 0.0-0.[address] [facility] Comment on above: Order Comment: No: D o not add to previous draw Performed By: #### 8 5499 #### [facility] [address] [place] [address], [facility] Eosinophils/100 WBC (Bld) 4.4 % Normal 0.0-6.[address] [facility] Comment on above: Order Comment: No: D o not add to previous draw Performed By: #### 8 5499 #### [facility] [address] [place] [id number], [place] Erythrocyte distribution width (RBC) [Ratio] 14.7 % Normal 11.5-15.[address] [facility] Comment on above: Order Comment: No: D o not add to previous draw Performed By: #### 8 5499 #### [facility] [address] [place] [address], [facility] Hematocrit (Bld) [Volume fraction] 38.4 % Normal 36.0-45.[address] [facility] Comment on above: Order Comment: No: D o not add to previous draw Performed By: #### 8 5499 #### [facility] [address] [place] [address], [place] Hemoglobin (Bld) [Mass/Vol] 12.2 g/dL Normal 12.0-15.[address] [facility] Comment on above: Order Comment: No: D o not add to previous draw Performed By: #### 8 5499 #### [facility] [address] [place] [id number], [facility] IMMATURE GRANS 0.5 % Normal 0.0-1.0 The [facility] Comment on above: Order Comment: No: D o not add to previous draw Performed By: #### 8 5499 #### [facility] [address] [place] [id number], [facility] Lymphocytes (Bld) [#/Vol] 1.3 10*3/uL Normal 1.2-4.[address] [facility] Comment on above: Order Comment: No: D o not add to previous draw Performed By: #### 8 5499 #### [facility] [address] [place] [id number], [place] Lymphocytes/100 WBC (Bld) 22.0 % Normal 20.0-45.[address] [facility] Comment on above: Order Comment: No: D o not add to previous draw Performed By: #### 8 5499 #### [facility] [address] [place] [address], [place] MCH (RBC) [Entitic mass] 28.6 pg Normal 27.0-33.[address] [facility] Comment on above: Order Comment: No: D o not add to previous draw Performed By: #### 8 5499 #### [facility] [address] [place] [address], [place] MCHC (RBC) [Mass/Vol] 31.8 g/dL Low 32.0-35.[address] [facility] Comment on above: Order Comment: No: D o not add to previous draw Performed By: #### 8 5499 #### [facility] [address] [place] [address], [facility] MCV (RBC) [Entitic vol] 90.1 fL Normal 82.0-98.[address] [facility] Comment on above: Order Comment: No: D o not add to previous draw Performed By: #### 8 5499 #### [facility] [address] [place] [address], [facility] Monocytes (Bld) [#/Vol] 0.7 10*3/uL Normal 0.1-1.[address] [facility] Comment on above: Order Comment: No: D o not add to previous draw Performed By: #### 8 5499 #### [facility] [address] [facility] [place] [address], [facility] MONOS 11.1 % Normal 5.0-12.[address] [facility] Comment on above: Order Comment: No: D o not add to previous draw Performed By: #### 8 5499 #### [facility] [address] [facility] [place] [address], [facility] Neutrophils/100 WBC (Bld) 61.2 % Normal 40.0-72.[address] [facility] Comment on above: Order Comment: No: D o not add to previous draw Performed By: #### 8 [id number] #### [facility] [address] [facility] [place] [address], [facility] Nucleated RBC/100 WBC (Bld) [Ratio] 0 % Normal 0-[address] [facility] Comment on above: Order Comment: No: D o not add to previous draw Performed By: #### 8 [id number] #### [facility] [address] [place] [id number], [facility] PLAT CNT 193 10*3/uL Normal 150-400 The [facility] Comment on above: Order Comment: No: D o not add to previous draw Performed By: #### 8 5499 #### [facility] [address] [place] [address], [facility] RBC (Bld) [#/Vol] 4.26 10*6/uL Normal 3.80-5.00 The [facility] Comment on above: Order Comment: No: D o not add to previous draw Performed By: #### 8 [id number] #### [facility] [address] [place] [address], [place] WBC (Bld) [#/Vol] 5.96 10*3/uL Normal 4.00-10.60 The [facility] Comment on above: Order Comment: No: D o not add to previous draw Performed By: #### 8 [id number] #### [facility] [address] [place] [address], [facility] POC GLUCOSE LABon 07-03-2020 Glucose [Mass/Vol] 161 mg/dL High 70-100 [facility] Comment on above: Performed By: #### 8 [id number] #### [facility] [address] [place] [id number], [facility] BASIC METABOLIC PANELon 06-06 Calcium [Mass/Vol] 8.5 mg/dL Low 8.6-10.3 [facility] Comment on above: Order Comment: No: D o not add to previous draw Performed By: #### 0 0071, 92838 #### [facility] [address] [place] [address], [place] Chloride [Moles/Vol] 103 mmol/L Normal 98-[address] [facility] Comment on above: Order Comment: No: D o not add to previous draw Performed By: #### 0 0071, 42559 #### [facility] [address] [place] [address], [place] CO2 [Moles/Vol] 24 mmol/L Normal 21-31 [facility] [place] [facility] Comment on above: Order Comment: No: D o not add to previous draw Performed By: #### 0 0071, 33878 #### [facility] [address] [place] [address], [facility] Creatinine [Mass/Vol] 0.76 mg/dL Normal 0.60-1.[address] [facility] Comment on above: Order Comment: No: D o not add to previous draw Performed By: #### 0 0071, 68862 #### [facility] [address] [place] [address], [facility] GFR/1.73 sq M predicted among blacks MDRD (S/P/Bld) [Vol rate/Area] mL/min/{1.73_m2} Normal >[address] [facility] Comment on above: Order Comment: No: D o not add to previous draw Performed By: #### 0 0071, 98676 #### [facility] [address] [place] [address], [place] GFR/1.73 sq M predicted among non-blacks MDRD (S/P/Bld) [Vol rate/Area] mL/min/{1.73_m2} Normal >[address] [facility] Comment on above: Order Comment: No: D o not add to previous draw Performed By: #### 0 0071, 20142 #### [facility] [address] [place] [address], [place] Glucose [Mass/Vol] 224 mg/dL High 70-100 [facility] Comment on above: Order Comment: No: D o not add to previous draw Performed By: #### 0 0071, 22713 #### [facility] [address] [place] [address], [place] Potassium [Moles/Vol] 4.0 mmol/L Normal 3.5-5.[address] [facility] Comment on above: Order Comment: No: D o not add to previous draw Performed By: #### 0 0071, 53794 #### [facility] [address] [facility]. [address] Sodium [Moles/Vol] 134 mmol/L Low 136-145 [facility] Comment on above: Order Comment: No: D o not add to previous draw Performed By: #### 0 0071, 84176 #### [facility] [address] [facility]. [address] Urea nitrogen [Mass/Vol] 16 mg/dL Normal 7-[address] [facility] Comment on above: Order Comment: No: D o not add to previous draw Performed By: #### 0 0071, 09791 #### [facility] [address] CBC W/DIFFon 07-02-2020 ABS BASOPHILS 0.1 10*3/uL Normal 0.0-0.2 [facility] Comment on above: Order Comment: No: D o not add to previous draw Performed By: #### [id number], [id number] #### [facility] [address] ABS IMM GRANS 0.1 10*3/uL Normal 0.0-0.2 [facility] Comment on above: Order Comment: No: D o not add to previous draw Performed By: #### [id number], [id number] #### [facility] [address] [facility]. [address] ABS NEUTROPHILS 6.5 10*3/uL Normal 1.6-7.6 [facility] Comment on above: Order Comment: No: D o not add to previous draw Performed By: #### 0 0071, [id number] #### [facility] [address] [place] [address], [facility] Basophils/100 WBC (Bld) 0.7 % Normal 0.0-1.[address] [facility] Comment on above: Order Comment: No: D o not add to previous draw Performed By: #### 0 0071, 86096 #### [facility] [address] [place] [address], [facility] Eosinophils (Bld) [#/Vol] 0.2 10*3/uL Normal 0.0-0.[address] [facility] Comment on above: Order Comment: No: D o not add to previous draw Performed By: #### 0 0071, 92255 #### [facility] [address] [place] [id number], [facility] Eosinophils/100 WBC (Bld) 2.5 % Normal 0.0-6.[address] [facility] Comment on above: Order Comment: No: D o not add to previous draw Performed By: #### 0 0071, 94424 #### [facility] [address] [place] [address], [facility] Erythrocyte distribution width (RBC) [Ratio] 14.9 % Normal 11.5-15.[address] [facility] Comment on above: Order Comment: No: D o not add to previous draw Performed By: #### 0 0071, 63148 #### [facility] [address] [facility] [address], [facility] Hematocrit (Bld) [Volume fraction] 37.8 % Normal 36.0-45.[address] [facility] Comment on above: Order Comment: No: D o not add to previous draw Performed By: #### 0 0071, 62608 #### [facility] [address] [place] [address], [facility] Hemoglobin (Bld) [Mass/Vol] 12.0 g/dL Normal 12.0-15.[address] [facility] Comment on above: Order Comment: No: D o not add to previous draw Performed By: #### 0 0071, 04821 #### [facility] [address] [place] [address], [facility] IMMATURE GRANS 0.6 % Normal 0.0-1.0 The [facility] Dall[facility] rojas [facility] Comment on above: Order Comment: No: D o not add to previous draw Performed By: #### 0 0071, 36945 #### [facility] [address] [place] [address], [facility] Lymphocytes (Bld) [#/Vol] 1.0 10*3/uL Low 1.2-4.[address] [facility] Comment on above: Order Comment: No: D o not add to previous draw Performed By: #### 0 0071, 58561 #### [facility] [address] [place] [address], [facility] Lymphocytes/100 WBC (Bld) 11.3 % Low 20.0-45.[address] [facility] Comment on above: Order Comment: No: D o not add to previous draw Performed By: #### 0 0071, 63197 #### [facility] [address] [facility] [place] [address], [facility] MCH (RBC) [Entitic mass] 29.0 pg Normal 27.0-33.[address] [facility] Comment on above: Order Comment: No: D o not add to previous draw Performed By: #### 0 0071, 41784 #### [facility] [address] [facility] [place] [address], [facility] MCHC (RBC) [Mass/Vol] 31.7 g/dL Low 32.0-35.[address] [facility] Comment on above: Order Comment: No: D o not add to previous draw Performed By: #### 0 0071, 73997 #### [facility] [address] [facility] [address], [facility] MCV (RBC) [Entitic vol] 91.3 fL Normal 82.0-98.[address] [facility] Comment on above: Order Comment: No: D o not add to previous draw Performed By: #### 0 0071, 43197 #### [facility] [address] [place] [id number], [facility] Monocytes (Bld) [#/Vol] 0.9 10*3/uL Normal 0.1-1.[address] [facility] Comment on above: Order Comment: No: D o not add to previous draw Performed By: #### 0 0071, 64927 #### [facility] [address] [place] [address], [place] MONOS 10.3 % Normal 5.0-12.[address] [facility] Comment on above: Order Comment: No: D o not add to previous draw Performed By: #### 0 0071, 09017 #### [facility] [address] [place] [address], [place] Neutrophils/100 WBC (Bld) 74.6 % High 40.0-72.[address] [facility] Comment on above: Order Comment: No: D o not add to previous draw Performed By: #### 0 0071, 08525 #### [facility] [address] [place] [address], [place] Nucleated RBC/100 WBC (Bld) [Ratio] 0 % Normal 0-[address] [facility] Comment on above: Order Comment: No: D o not add to previous draw Performed By: #### 0 0071, 39881 #### [facility] [address] [place] [address], [place] PLAT CNT 229 10*3/uL Normal 150-400 The [facility] Comment on above: Order Comment: No: D o not add to previous draw Performed By: #### 0 0071, 05022 #### [facility] [address] [place] [address], [place] RBC (Bld) [#/Vol] 4.14 10*6/uL Normal 3.80-5.00 The [facility] Comment on above: Order Comment: No: D o not add to previous draw Performed By: #### 0 0071, 48404 #### [facility] [address] [place] [address], [place] WBC (Bld) [#/Vol] 8.65 10*3/uL Normal 4.00-10.60 The [facility] Comment on above: Order Comment: No: D o not add to previous draw Performed By: #### 0 0071, 52056 #### [facility] [address] [place], [place] [address] [place] [address] MAGNESIUM BLOODon 07-02-2020 Magnesium [Mass/Vol] 1.8 mg/dL Low 1.9-2.[address] [facility] Comment on above: Order Comment: No: D o not add to previous draw Performed By: #### 0 0071, 95280 #### [facility] [address] [place], [place] [id number] [place] [address] POC GLUCOSE LABon 07-02-2020 Glucose [Mass/Vol] 157 mg/dL High 70-100 The [facility] Comment on above: Performed By: #### 8 5499 #### [facility] [address] *MRSA/MSSA CULTUREon 020 *MRSA/MSSA CULTURE Clinical [...] No previously released data found. Normal [facility] Comment on above: Performed By: #### 3 1302 #### [facility] [address] [place], [place] [id number] [place] [address] LUMBAR SPINE 2 OR 3 VWSon LUMBAR SPINE [address] [facility] Department of Radiology [address] [place] [id number] Patient Name: MONICA ACOSTA : 1960 Sex: F Age: Race: White Pt. Location: [id number] Patient Status: I Ordered Date: 07/01/2020 7:00:00 [...] reports Electronically signed: Richard Clarke. Transcribed by: [email or web address], User Resident: BOGDAN SOTELO Electronically Signed by: RICHARD CLARKE @ 07/01/2020 08:54 PM I personally read this/these film(s) with this resident Normal [facility] Comment on above: Order Comment: No: D o not add to previous draw Operative Reporton 0 Operative Report MR#: [id number] [facility] Pt. Name: Monica Acosta Room #: [id number] Discharge Date: Birthdate: 1960 OPERATIVE REPORT DATE OF SURGERY: 07/01/2020 SURGEON: Chilango Martinez M.D. MOLDING SUPERVISOR: Ant Jolley M.D. PREOPERATIVE DIAGNOSIS: L1 vertebral compression fracture secondary to osteoporosis (ICD-10 M80.08XA). ANESTHESIA: General endotracheal. POSITION: Prone position on the Chris table in reverse Trendelenburg position. OPERATION: 1. L1 vertebroplasty (95381). 2. Use of intraoperative fluoroscopy (75216). POSTOPERATIVE DIAGNOSIS: S5esxizupbl compression fracture secondary to osteoporosis (ICD-10 M80.08XA). [...] Martinez M.D. Date Trans: 07/01/2020 12:25 P/ [id number] [facility] POC GLUCOSE LABon 07-01-2020 Glucose [Mass/Vol] 142 mg/dL High 70-100 [facility] Comment on above: Performed By: #### 8 5499 ####[facility] [facility] [place] [address], [facility] Glucose [Mass/Vol] 156 mg/dL High 70-100 [facility] Comment on above: Performed By: #### 3 1792 #### [facility] [address] [facility] [place] [address], [facility] Glucose [Mass/Vol] 187 mg/dL High 70-100 [facility] Comment on above: Performed By: #### 3 1792 #### [facility] [address] [facility] *SARS-CoV-2 COVID-19on 06-30 [id number] Not Detected Normal Not Detected The [facility] Comment on above: Order Comment: The A ptima SARS-CoV-2 assay is a nucleic acid amplification test intended for the qualitative detection of RNA from SARS-CoV-2 isolated and purified from nasopharyngeal (PED[employer]ICIAN MANAGING [employer]NER),oropharyngeal (OP), nasal swab, sputum, and bronchoalveolar lavage (BAL) specimens from patients with signs and symptoms of infection who are suspected of COVID-19. Results are for the identification of SARS-CoV-2 RNA. The SARS-CoV-2 RNA is generally detectable during the acute phase of infection. The Aptima SARS-CoV-2 Assay on the [employer] and [employer] system is intended for use by laboratory personnel specifically instructed and trained in the operation of the [employer] system. The Aptima SARS-CoV-2 assay is [...] information. Performed By: #### 3 1792 #### [facility] [address] APTTon 06-30-2020 aPTT Coag (Bld) [Time] 22.4 s Low 25.0-35.[address] [facility] Comment on above: Result Comment: ALL [...] PURPOSE. Performed By: #### 8 5499 #### [facility] [address] BASIC METABOLIC PANELon 10-2 6-2020 Calcium [Mass/Vol] 9.5 mg/dL Normal 8.6-10.3 [facility] Comment on above: Performed By: #### 8 5499 #### [facility] [address] [place] [address], [place] Chloride [Moles/Vol] 95 mmol/L Low 98-[address] [facility] Comment on above: Performed By: #### 8 5499 #### [facility] [address] [place] [address], [place] CO2 [Moles/Vol] 21 mmol/L Normal 21-31 The [facility] Comment on above: Performed By: #### 8 5499 #### [facility] [address] [place] [address], [place] Creatinine [Mass/Vol] 1.00 mg/dL Normal 0.60-1.[address] [facility] Comment on above: Performed By: #### 8 5499 #### [facility] [address] [place] [address], [place] GFR/1.73 sq M predicted among blacks MDRD (S/P/Bld) [Vol rate/Area] mL/min/{1.73_m2} Normal >[address] [facility] Comment on above: Performed By: #### 8 5499 #### [facility] [address] [place] [address], [place] GFR/1.73 sq M predicted among non-blacks MDRD (S/P/Bld) [Vol rate/Area] 56 ml/min/1.73sq m Abnormal >60 The [facility] Comment on above: Performed By: #### 8 5499 #### [facility] [address] [place] [address], [place] Glucose [Mass/Vol] 395 mg/dL High 70-100 [facility] Comment on above: Performed By: #### 8 5499 #### [facility] [address] [place] [address], [facility] Potassium [Moles/Vol] 4.4 mmol/L Normal 3.5-5.[address] [facility] Comment on above: Performed By: #### 8 5499 #### [facility] [address] [place] [address], [facility] Sodium [Moles/Vol] 134 mmol/L Low 136-145 [facility] Comment on above: Performed By: #### 8 5499 #### [facility] [address] [facility] [place] [address], [facility] Urea nitrogen [Mass/Vol] 24 mg/dL Normal 7-[address] [facility] Comment on above: Performed By: #### 8 5499 #### [facility] [address] [facility] BNP (B-TYPE NATRIURETIC PEPT PADMAJA)on 06-30-2020 Natriuretic peptide B (Bld) [Mass/Vol] 27 pg/mL Normal 0-[address] [facility] Comment on above: Order Comment: No: D o not add to previous draw Result Comment: Give n the appropriate clinical setting a BNP result of >100 pg/mL indicates congestive heart failure. Performed By: #### 0 0071, 51888 #### [facility] [address] [facility] [place] [address], [facility] CBC W/DIFFon 06-30-2020 ABS BASOPHILS 0.1 10*3/uL Normal 0.0-0.2 The [facility] Comment on above: Performed By: #### 8 5499 #### [facility] [address] [facility] [place] [address], [facility] ABS IMM GRANS 0.1 10*3/uL Normal 0.0-0.2 The [facility] Comment on above: Performed By: #### 8 5499 #### [facility] [address] [place] [address], [facility] ABS NEUTROPHILS 10.3 10*3/uL High 1.6-7.6 The [facility] Comment on above: Performed By: #### 8 5499 #### [facility] [address] [place] [address], [facility] Basophils/100 WBC (Bld) 0.7 % Normal 0.0-1.[address] [facility] Comment on above: Performed By: #### 8 5499 #### [facility] [address] [place] [address], [facility] Eosinophils (Bld) [#/Vol] 0.2 10*3/uL Normal 0.0-0.[address] [facility] Comment on above: Performed By: #### 8 5499 #### [facility] [address] [facility] [place] [address], [facility] Eosinophils/100 WBC (Bld) 1.4 % Normal 0.0-6.[address] [facility] Comment on above: Performed By: #### 8 5499 #### [facility] [address] [facility] [place] [address], [facility] Erythrocyte distribution width (RBC) [Ratio] 14.7 % Normal 11.5-15.[address] [facility] Comment on above: Performed By: #### 8 5499 #### [facility] [address] [facility] [place] [address], [facility] Hematocrit (Bld) [Volume fraction] 47.7 % High 36.0-45.[address] [facility] Comment on above: Performed By: #### 8 5499 #### [facility] [address] [facility] [place] [address], [facility] Hemoglobin (Bld) [Mass/Vol] 15.3 g/dL High 12.0-15.[address] [facility] Comment on above: Performed By: #### 8 5499 #### [facility] [address] [place] [address], [place] IMMATURE GRANS 0.6 % Normal 0.0-1.0 The Marge rojas [facility] Comment on above: Performed By: #### 8 5499 #### [facility] [address] [facility] [place] [address], [facility] Lymphocytes (Bld) [#/Vol] 1.4 10*3/uL Normal 1.2-4.[address] [facility] Comment on above: Performed By: #### 8 5499 #### [facility] [address] [facility] [place] [address], [facility] Lymphocytes/100 WBC (Bld) 11.0 % Low 20.0-45.[address] [facility] Comment on above: Performed By: #### 8 5499 #### [facility] [address] [facility] [address] MCH (RBC) [Entitic mass] 28.7 pg Normal 27.0-33.[address] [facility] Comment on above: Performed By: #### 8 5499 #### [facility] [address] [facility] [place] [address], [facility] MCHC (RBC) [Mass/Vol] 32.1 g/dL Normal 32.0-35.[address] [facility] Comment on above: Performed By: #### 8 5499 #### [facility] [address] [facility] [place] [address], [facility] MCV (RBC) [Entitic vol] 89.3 fL Normal 82.0-98.[address] [facility] Comment on above: Performed By: #### 8 5499 #### [facility] [address] [facility] [place] [address], [facility] Monocytes (Bld) [#/Vol] 1.0 10*3/uL Normal 0.1-1.[address] [facility] Comment on above: Performed By: #### 8 5499 #### [facility] [address] [facility] [place] [address], [facility] MONOS 7.4 % Normal 5.0-12.0 [facility] Comment on above: Performed By: #### 8 5499 #### [facility] [address] [facility] [place] [address], [facility] Neutrophils/100 WBC (Bld) 78.9 % High 40.0-72.0 [facility] Comment on above: Performed By: #### 8 5499 #### [facility] [address] [facility] [place] [address], [facility] Nucleated RBC/100 WBC (Bld) [Ratio] 0 % Normal 0-[address] [facility] Comment on above: Performed By: #### 8 5499 #### [facility] [address] [place] [address], [facility] PLAT CNT 315 10*3/uL Normal 150-400 The [facility] Comment on above: Performed By: #### 8 5499 #### [facility] [address] [place] [address], [facility] RBC (Bld) [#/Vol] 5.34 10*6/uL High 3.80-5.00 [facility] Comment on above: Performed By: #### 8 5499 #### [address] [place] [address], [facility] WBC (Bld) [#/Vol] 13.03 10*3/uL High 4.00-10.[address] [facility] Comment on above: Performed By: #### 8 5499 #### [place] [address], [facility] CT BRAIN WO CONTRASTon 06-30 CT BRAIN WO CONTRAST [facility] Department of Radiology [address] [place] [phone] Patient Name: MONICA ACOSTA : 1960 Sex: F Age: Race: White Pt. Location: [facility] Patient Status: E Ordered Date: 06/30/2020 6:35:00 [...] achievable Electronically signed: Enio Miles. Transcribed by: [email or web address], User Resident: Electronically Signed by: JUANLITO GINGER @ 06/30/2020 07:[address] [facility] Comment on above: Order Comment: Bleed CT CERVICAL SPINE WITHOUT CO NTRASTon 06-30-2020 CT CERVICAL SPINE WITHOUT CONTRAST [facility] Department of Radiology [address] [place] [phone] Patient Name: MONICA ACOSTA : 1960 Sex: F Age: Race: White Pt. Location: [facility] Patient Status: E Ordered Date: 06/30/2020 6:35:00 [...] malalignment. Electronically signed: Enio Miles. Transcribed by: [email or web address], User Resident: Electronically Signed by: ENIO MILES @ 06/30/2020 07:[address] [facility] Comment on above: Order Comment: No: D o not add to previous draw CT LUMBAR SPINE WO CONTRASTo n 06-30-2020 CT LUMBAR SPINE WO CONTRAST [facility] Department of Radiology [address] [place] [phone] Patient Name: MONICA ACOSTA : 1960 Sex: F Age: Race: White Pt. Location: [facility] Patient Status: E Ordered Date: 06/30/2020 7:00:00 [...] injury. Electronically signed: Enio Miles. Transcribed by: [email or web address], User Resident: Electronically Signed by: ENIO MILES @ 06/30/2020 07:[address] [facility] Comment on above: Order Comment: No: D o not add to previous draw CTA CHESTon 06-30-[address] [facility] Department of Radiology [address] [place] [phone] Patient Name: MONICA ACOSTA : 1960 Sex: F Age: Race: White Pt. Location: [id number] Patient Status: I Ordered Date: 06/30/2020 3:25:00 [...] atelectasis. Electronically signed: Richard Clarke. Transcribed by: [email or web address], User Resident: Electronically Signed by: RICHARD CLARKE @ 06/30/2020 08:13 PM Normal [facility] Comment on above: Order Comment: No: D o not add to previous draw D DIMER TESTon 06-30-2020 D-DIMER TEST 1.78 mcg/mL FEU High 0.27-0.49 [facility] Comment on above: Order Comment: No: D o not add to previous draw Result Comment: D-Di pema values of less than 0.50 ug/ml (FEU) are considered to be a negative predictor of thrombosis. However, the D-Dimer result should be used in conjunction with pretest probability and should not be used alone to diagnose a thrombotic event. Performed By: #### 0 0071, 14789 #### [facility] [address] [facility] [address] HEMOGLOBIN A1Con 06-30-2020 HbA1c (Bld) [Mass fraction] 200 mmol/L Normal [facility] Comment on above: Order Comment: No: D o not add to previous draw Performed By: #### 0 0071, 12308 #### [facility] [address] HbA1c (Bld) [Mass fraction] 8.6 % High 4.0-6.[address] [facility] Comment on above: Order Comment: No: D o not add to previous draw Performed By: #### 0 0071, 76945 #### [facility] [address] [place] [address], [facility] LACTATE BLOODon 06-30-2020 Lactate [Moles/Vol] 1.5 mmol/L Normal 0.5-2.2 The [facility] Comment on above: Order Comment: No: D o not add to previous draw Performed By: #### 0 0071, 01802 #### [facility] [address] [place] [address], [facility] MAGNESIUM BLOODon 06-30-2020 Magnesium [Mass/Vol] 1.9 mg/dL Normal 1.9-2.[address] [facility] Comment on above: Order Comment: No: D o not add to previous draw Performed By: #### 0 0071, 39259 #### [address] MRI LUMBAR SPINE W WO CONTRA STon 06-30-2020 MRI LUMBAR SPINE W WO CONTRAST [facility] Department of Radiology [address] [place] [phone] Patient Name: MONICA ACOSTA : 1960 Sex: F Age: Race: White Pt. Location: [facility] Patient Status: I Ordered Date: 06/30/2020 7:50:00 [...] changes. Electronically signed: Dom Carbajal. Transcribed by: [email or web address], User Resident: Electronically Signed by: DOM CARBAJAL @ 06/30/2020 11:[address] [facility] Comment on above: Order Comment: No: D o not add to previous draw POC GLUCOSE EDon 06-30-2020 Glucose [Mass/Vol] 388 mg/dL High 70-100 [facility] Comment on above: Performed By: #### 8 5499 #### [facility] [address] [place] [address], [place] POC GLUCOSE LABon 06-30-2020 Glucose [Mass/Vol] 430 mg/dL High 70-100 [facility] Comment on above: Performed By: #### 8 5499 ####[facility] [place] [address], [place] Glucose [Mass/Vol] 308 mg/dL High 70-100 [facility] Comment on above: Performed By: #### 3 1792 #### [facility] [address] [place] [address], [place] Glucose [Mass/Vol] 348 mg/dL High 70-100 [facility] Comment on above: Performed By: #### 8 5499 #### [facility] [address] [place] [address], [place] PROCALCITONINon 06-30-2020 PROCALCITONIN 0.11 ng/mL High 0.00-0.10 The [facility] Comment on above: Order Comment: No: [...] initial PCT<0.5ng/mL Performed By: #### 0 0071, 00804 #### [address] PROTHROMBIN TIMEon 0 INR Coag (PPP) [Relative time] 0.89 {INR} Low 0.91-1.[address] [facility] Comment on above: Result Comment: ACC P RECOMMENDED INR FOR WARFARIN THERAPY -------- [...] 1995;108:[id number]. Performed By: #### 8 5499 #### [facility] [address] PT Coag (PPP) [Time] 12.0 s Low 12.3-14.8 [facility] Comment on above: Result Comment: ALL RESULTS MUST BE INTERPRETED WITH RESPECT TO BLOOD DRAWING ARTIFACT OR DILUTION ERROR OF ANTICOAGULANT AT THE TIME OF SAMPLING. Performed By: #### 8 5499 #### [facility] [address] TPO ANTIBODY 81384hy 020 TPO ANTIBODY 0.8 IU/mL Normal 0.0-9.0 The [facility] Comment on above: Result Comment: Perf ormed By: Padlet [address] [place] [id number] Pricing Strategist: Emilia Arrieta MD TROPONIN-Ion 06-30-2020 Troponin I.cardiac [Mass/Vol] 0.01 ng/mL Normal 0.00-0.04 [facility] Comment on above: Order Comment: No: D o not add to previous draw Result Comment: REFE RENCE RANGES: 0.00 - 0.04 ng/ml NORMAL 0.05 - 0.50 ng/ml INDETERMINATE > 0.50 ng/ml CONSISTENT WITH AN M.I. Performed By: #### 0 0071, 55084 #### [facility] [address] Performed By: #### 8 5499 #### [facility] 3000 [facility] [place] [address], [facility] TYPE AND SCREENon 06-30-2020 ABO INTERPRETATION A Normal [facility] Comment on above: Performed By: #### 8 5499 #### [facility] [address] [facility] [place] [address], [facility] RH INTERPRETATION Positive Normal [facility] Comment on above: Performed By: #### 8 5499 #### [facility] [address] [facility] [place] [address], [facility] LUMBAR SPINE 2 OR 3 VWSon LUMBAR SPINE [address] [facility] Department of Radiology [address] [place] [address] [id number] Patient Name: MONICA ACOSTA : 1960 Sex: [...] reports Electronically signed: Jamie Elizondo. Transcribed by: [email or web address], User Resident: BOGDAN SOTELO Electronically Signed by: JAMIE ELIZONDO @ 06/26/2020 11:06 AM I personally read this/these film(s) with this resident Normal [facility] Comment on above: Order Comment: No: D o not add to previous draw Vital Signs Date Time Vital Sign Value Performing Clinician Facility 12-05-2023 12:52-0400 Body height 170.2 cm Demetra Charlotte HUDSON Work Phone: [facility] 12-05-2023 12:52-0400 Body mass index (BMI) [Ratio] 28.16 kg/m2 Demetra Charlotte WAKEFIELD-MANAGER SERVICING Work Phone: [facility] 12-05-2023 12:52-0400 Body temperature 97.59 [degF] Demetra Charlotte WAKEFIELD-MANAGER SERVICING Work Phone: [facility] 12-05-2023 12:52-0400 Body weight 81.56 kg Demetra Charlotte WAKEFIELD-MANAGER SERVICING Work Phone: [employer] 12-05-2023 12:52-0400 Diastolic blood pressure 58 mm[Hg] 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 Work Phone: [employer] 12-05-2023 12:52-0400 Heart rate 84 /min 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 Work Phone: [employer] 12-05-2023 12:52-0400 Respiratory rate 18 /min 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 Work Phone: [employer] 12-05-2023 12:52-0400 SaO2% (BldA) [Mass fraction] 98 % 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 Work Phone: [employer] 12-05-2023 12:52-0400 Systolic blood pressure 96 mm[Hg] Demetra Porter APRN-MANAGER SERVICING Work Phone: [employer] 07-27-2021 12:15-0500 Body height 170.18 cm Veronica Ginty Other [employer] Other 07-27-2021 12:15-0500 Body mass index (BMI) [Ratio] 27.88 kg/m2 Veronica Ginty Other [employer] Other 07-27-2021 12:15-0500 Body temperature 96 [degF] Veronica Ginty Other [employer] Other 07-27-2021 12:15-0500 Body weight 80.74 kg Veronica Ginty Other [employer] Other 07-27-2021 12:15-0500 SaO2% (BldA) [Mass fraction] 96 % Veronica Ginty Other [employer] Other Encounters Encounter Date Encounter Type Care Provider Facility Start: 07-09-2024 End: 07-09-2024 ambulatory [facility] Start: 06-11-2024 End: 06-11-2024 ambulatory [facility] Start: 05-14-2024 End: 05-14-2024 ambulatory [facility] Start: 04-28-2024 Evaluation and manag ement of inpatient ANTONIO SEAY [facility] Start: 04-27-2024 Evaluation and manag ement of inpatient AUTUMN SLATERENE [facility] Start: 04-25-2024 Evaluation and manag ement of inpatient CORTNEY HOLDEN [facility] Start: 04-24-2024 Evaluation [facility]ment [facility] Start: 04-22-2024 Evaluation and manag ement of inpatient [facility] Start: 04-22-2024 Evaluation and manag ement of inpatient [facility] Start: 04-22-2024 Emergency department patient visit [facility] Start: 04-21-2024 Emergency department patient visit ISIDRO [facility] Start: 04-21-2024 End: 05-01-2024 Evaluation and management of inpatient JULIO CESAR GARDNER [facility] Start: 04-13-2024 End: 04-13-2024 ambulatory [facility] Start: 04-13-2024 End: 04-13-2024 ambulatory [facility] Start: 03-27-2024 End: 03-27-2024 ambulatory [facility] Start: 03-27-2024 End: 03-27-2024 ambulatory [facility] Start: 03-26-2024 End: 03-26-2024 [facility] Start: 03-26-2024 ambulatory [facility] Start: 02-09-2024 End: 02-09-2024 ambulatory ZEN CORNEJOWILFREDO [facility] Start: 12-05-2023 End: 12-05-2023 [facility] Start: 12-05-2023 End: 12-05-2023 Office outpatient visit 25 minutes 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 Work Phone: [facility] Comment on above: Rheumatoid arthritis involving multiple sites, unspecified whether rheumatoid factor present ([facility]) (Primary Dx); Status post partial amputation of left foot ([facility]); Diabetic polyneuropathy associated with type 2 diabetes mellitus ([facility]); Severe depression ([facility]); PAD (peripheral artery disease) ([facility]); Compression fracture of L1 vertebra with routine healing, subsequent encounter; Mixed hyperlipidemia Start: 12-05-2023 End: 12-05-2023 ambulatory RICH [facility] Start: 11-29-2023 Orders Only 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 Work Phone: [facility] Start: 11-15-2023 Orders Only 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 Work Phone: [facility] Start: 11-14-2023 Refill Zen Cornejolo ng DO Work Phone: [facility] Comment on above: Compression fracture of L1 vertebra with routine healing, subsequent encounter Start: 10-31-2023 Refill Zen Kemar Cornejolo ng DO Work Phone: [facility] Comment on above: Compression fracture of L1 vertebra with routine healing, subsequent encounter Start: 10-16-2023 Refill Zen Kemar Cornejolo ng DO Work Phone: [facility] Comment on above: Compression fracture of L1 vertebra with routine healing, subsequent encounter Start: 10-04-2023 Refill Zen Kemar Cornejolo ng DO Work Phone: [facility] Comment on above: Compression fracture of L1 vertebra with routine healing, subsequent encounter Start: 09-12-2023 Refill Zen burns DO Work Phone: [facility] - [facility] Oncology Comment on above: Compression fracture of L1 vertebra with routine healing, subsequent encounter Start: 08-02-2023 End: 08-02-2023 ambulatory RICHARD Daja [facility] Not Available Start: 10-17-2022 End: 10-17-[address] ZEN FLORES Facility:[facility] Start: 08-17-2022 ambulatory FARIBA CARRERA Facilit y:[facility]1 Start: 08-04-2022 End: 08-05-[address] ZEN FLORES Facility:[facility] Start: 06-15-2022 End: 06-16-2022 ambulatory FARIBA CARRERA Facility:[facility] Start: 05-31-2022 Encounter for preprocedural cardiovascular examination [facility] Jero [facility] Start: 05-31-2022 Encounter for preprocedural laboratory examination [facility] Start: 05-31-2022 End: 06-03-[address] ZEN [...] Facility:[facility] Start: 03-25-2022 End: 03-26-2022 ambulatory RADHA BRANNON Facility:[facility] Start: 03-18-2022 End: 03-19-2022 ambulatory RADHA BRANNON Facility:[facility] Start: 03-14-2022 Encounter for preprocedural laboratory examination RADHA BRANNON [facility] Start: 03-13-2022 End: 03-15-2022 Evaluation and [...] 07-27-2021 End: 07-27-2021 ambulatory Veronica Mcneill Other [employer] Other Start: 07-27-2021 Office outpatient vi sit 15 minutes Veronica Mcneill [facility] Start: 07-17-2020 End: 08-01-2020 Patient encounter procedure REFERRED SELF Facility:[facility] Start: 06-30-2020 End: 07-14-2020 Evaluation and management of inpatient REFERRED SELF Facility:[facility] Procedures Date Procedure Procedure Detail Performing Clinician Start: 07-09-2024 Follow-up visit BROOKE PEREZ Start: 06-11-2024 Follow-up visit BROOKE PEREZ Start: 05-14-2024 Follow-up visit BROOKE PEREZ Start: 02-09-2024 Follow-up visit Follow-up ZEN FLORES Start: 12-05-2023 Adult depression screening assessment 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 Work Phone: Start: 07-12-2023 Adult depression screening [...] on above: Performed By: #### B LDX1 ####[facility] [address] [place], [place] [address]JcKasia Clement Start: 03-11-2022 Detachment at Left F oot, Partial 4th Ray, Open Approach RADHA BRANNON Start: 03-11-2022 Division of Left Geovanny t Subcutaneous Tissue and Fascia, Percutaneous Approach RADHA BRANNON Start: 03-11-2022 Division of Left Low er Leg Tendon, Open Approach RADHA BRANNON Start: 03-11-2022 EXC LT METATRSL [facility] BNE 1ST TOE OP RADHA BRANNON Start: 03-11-2022 Detachment at Left F oot, Partial 4th Ray, Open Approach RADHA BRANNON Start: 03-11-2022 Division of Left Low er Leg Tendon, Open Approach RADHA BRANNON Start: 03-11-2022 EXC LT METATRSL [facility] BNE 1ST TOE OP RADHA BRANNON Start: 03-11-2022 Excision of Left Geovanny t Subcutaneous Tissue and Fascia, Open Approach [facility] Start: 07-01-2020 SUPPLEMENT LUMBAR VERTEBRA WITH SYNTH SUB, PERC APPROACH CHILANGO Carvajal LINARabia Start: 06-30-2020 Antibody screen REFERRE D SELF Comment on above: Performed By: #### [id number] #### [address] Plan of Treatment Date Care Activity Detail Author Start: 09-17-2029 DTaP,Tdap and Td Vaccines (2 - Td or Tdap) DTaP,Tdap and Td Vaccines (2 - Td or Tdap) [facility] Start: 12-04-2024 Adult BMI Screening Adult BMI Screen ing [facility] Start: 12-04-2024 Depression Screening Depression Scre ening [facility] Start: 12-04-2024 Tobacco Screening Tobacco Screening [facility] Start: 07-12-2024 Adult BMI Screening Adult BMI Screen ing [facility] Start: 07-12-2024 Depression Screening Depression Scre ening [facility] Start: 07-12-2024 Tobacco Screening Tobacco Screening [facility] Start: 06-30-2024 Glaucoma screening Diabetic Op hthalmology Exam [facility] Start: 05-06-2024 Influenza vaccination Influenza Vacc ine [facility] Start: 11-20-2023 Screening for malign ant neoplasm of breast Mammogram [facility] Comment on above: Postponed from 11/19 (Patient Refused) Start: 11-20-2023 Screening for malign ant neoplasm of colon Colonoscopy [facility] Comment on above: Postponed from 11/19 (Patient Refused) Start: 11-10-2023 End: 11-10-2023 Patient encounter procedure 11/10/2023 1:50 PM EST Office Visit [facility] [address] [place] [address] ChantalthaoEvelioZen Kemar, DO [address], [facility] [place] [address] [facility] Start: 09-13-2023 Diabetic foot examination Diabetic Foot Exam [facility] Start: 11-19-2022 Screening for malign ant neoplasm of breast Mammogram [facility] Start: 11-19-2022 Screening for malign ant neoplasm of colon Colonoscopy [facility] Start: 12-20-2009 Administration of varicella zoster vaccine Zoster (Shingles) Vaccine (1 of 2) [facility] Start: 12-20-1977 Adult BMI Follow Up Plan Adult BMI Follow Up Plan [facility] Immunizations Immunization Date Immunization Notes Care Provider Fa cility 07-12-2023 influenza, injectabl e, quadrivalent, preservative free Zen Furlong DO Work Phone: [facility] 07-12-2023 influenza virus vacc ine, unspecified formulation 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 Work Phone: [facility] 08-05-2022 influenza, injectabl e, quadrivalent, preservative free Zen Furlong DO Work Phone: [facility] 05-21-2021 influenza, injectabl e, quadrivalent, preservative free Zen Furlong DO Work Phone: [facility] 11-06-2020 COVID-19, mRNA, LNP- S, PF, 30mcg/0.3mL Dose Zen Furlong DO Work Phone: [facility] 11-03-2020 SARS-COV-2 (COVID-19 ) Vaccine, Unspecified Zen Furlong DO Work Phone: [facility] 06-11-2020 pneumococcal conjuga te vaccine, 13 valent Zen Furlong DO Work Phone: [facility] Work Phone: 06-05-2020 influenza virus vacc ine, unspecified formulation Zen Furlong DO Work Phone: [facility] 06-05-2020 pneumococcal vaccine , unspecified formulation Zen Furlong DO Work Phone: [facility] 05-20-2020 influenza, injectabl e, quadrivalent, preservative free Zen Furlong DO Work Phone: [facility] 05-20-2020 pneumococcal polysaccharide vaccine, 23 valent Zen Furlong DO Work Phone: [facility] 09-17-2019 tetanus toxoid, redu timmy diphtheria toxoid, and acellular pertussis vaccine, adsorbed Zen Furlong DO Work Phone: [facility] 06-08-2019 influenza, injectabl e, quadrivalent, preservative free Zen Furlong DO Work Phone: [facility] 11-28-2012 tetanus toxoid, unspecified formulation Zen Furlong DO Work Phone: [facility] Payers Date Payer Category Payer Medicaid MEDICAID [facility] M EDICAID [id number] 2022-Present [phone] [address] [place] [address] [id number] 2022 Medicaid [id number] 2021 Medicare AETNA MEDICARE A ETNA MEDICARE PLAN (HMO) [id number] 2021-Present [phone] [address] [place] [address] [id number] 1959 Unknown [id number] 2.16.840.1.298937.3.579.2.6 47 1959 Unknown [id number] 2.16.840.1.729152.3.579.2.6 47 1959 Unknown [id number] 2.16.840.1.626274.3.579.2.5 93 1959 Unknown [id number] 2.16.840.1.953550.3.579.2.5 93 1959 Unknown [id number] 2.16.840.1.172791.3.579.2.5 93 1959 Unknown [id number] 2.16.840.1.376859.3.579.2.5 93 1959 Unknown [id number] 2.16.840.1.647670.3.579.2.5 93 1959 Unknown [id number] 2.16.840.1.938829.3.579.2.5 93 1959 Unknown [id number] 2.16.840.1.116812.3.579.2.5 93 1959 Unknown [id number] 2.16.840.1.358443.3.579.2.5 93 1959 Unknown [id number] 2.16.840.1.504771.3.579.2.5 93 1959 Unknown [id number] 2.16.840.1.295686.3.579.2.5 93 1959 Unknown [id number] 2.16.840.1.938520.3.579.2.5 93 1959 Unknown [id number] 2.16.840.1.126683.3.579.2.5 93 1959 Unknown [id number] 2.16.840.1.451813.3.579.2.5 93 1959 Unknown [id number] 2.16.840.1.465395.3.579.2.5 93 1959 Unknown [id number] 2.16.840.1.307868.3.579.2.5 93 1959 Unknown [id number] 2.16.840.1.634823.3.579.2.5 93 1959 Unknown [id number] 2.16.840.1.618035.3.579.2.5 93 1959 Unknown [id number] 2.16.840.1.385976.3.579.2.5 93 1959 Unknown [id number] 2.16.840.1.270248.3.579.2.5 93 1959 Unknown [id number] 2.16.840.1.366189.3.579.2.5 93 1959 Unknown [id number] 2.16.840.1.465298.3.579.2.5 93 1959 Unknown [id number] 2.16.840.1.014935.3.579.2.5 93 1959 Unknown [id number] 2.16.840.1.323345.3.579.2.5 93 1959 Unknown [id number] 2.16.840.1.623269.3.579.2.5 93 1959 Unknown [id number] 2.16.840.1.633653.3.579.2.5 93 1959 Unknown [id number] 2.16.840.1.789906.3.579.2.5 93 1959 Unknown [id number] 2.16.840.1.254761.3.579.2.5 93 1959 Unknown [id number] 2.16.840.1.862646.3.579.2.5 93 1959 Unknown [id number] 2.16.840.1.196972.3.579.2.1 259 1959 Unknown [id number] 2.16.840.1.491328.3.579.2.1 286 1959 Unknown [id number] 2.16840.1.716686.3.579.2.1 286 1959 Unknown [id number] 2.16.840.1.079441.3.579.2.1 286 1959 Unknown [id number] 2.16.840.1.067700.3.579.2.1 286 1959 Unknown [id number] 2.16.840.1.985337.3.579.2.1 286 1959 Unknown [id number] 2.16.840.1.226073.3.579.2.1 286 1959 Unknown [id number] 2.16.840.1.913049.3.579.2.1 286 1959 Unknown [id number] 2.16840.1.771308.3.579.2.1 286 1959 Unknown [id number] 2.840.1.424466.3.579.2.1 286 1960 Medicare [id number] 1960 Self-pay Private Health Insurance MEB [id number] Unknown [id number] Social History Date Type Detail Facility Start: 11-19-2022 End: 12-05-2023 Sex Assigned At [employer] Other Start: 07-27-2022 Tobacco smoking status NHIS Ex-smoker [facility] [employer] [facility] Start: 09-05-1975 End: 06-06-1997 History of tobacco use [facility] Start: 09-05-1975 End: 06-06-1997 History of tobacco use [facility] Start: 07-27-2022 End: 11-19-2022 Cigarettes smoked current (pack per day) - [facility] Start: 07-27-2022 Tobacco use and exposure Smokeless tobacco non-user [facility] [employer] [facility] Start: 07-12-2023 End: 12-05-2023 Alcohol intake Ex-drinker (finding) [facility] Do you belong to any clubs or organizations such as scientologist groups, unions, fraternal or athletic groups, or school groups? Yes [facility] Are you now , , , , never or living with a partner? [facility] How often to you hav e a drink containing alcohol? Never [facility] Average Number of Drinks Not on file [facility] How hard is it for y ou to pay for the very basics like food, housing, medical care, and heating Not very hard [facility] Do you feel stress - tense, restless, nervous, or anxious, or unable to sleep at night because your mind is troubled all the time - these days [OSQ] To some extent [facility] Start: 1960 Sex Assigned At Female [facility] Start: 09-15-2022 Gender identity Identifies as female gender (finding) [facility] Start: 09-15-2022 Sexual orientation Heterosexual (finding) [facility] How hard is it for y ou to pay for the very basics like food, housing, medical care, and heating Somewhat hard [facility] Clinical Notes 07-27-2021 to 07-09-2024 [facility] 12/05/2023 1:00 PM EDTMmichelle Porter, WASTE REDUCTION [facility]ORDIN[facility] - 11/29/2023 7:44 AM EDTMmichelle Porter, WASTE RED[facility]CTION [facility] - 11/15/2023 7:58 AM EDT Note Date & Type Note Facility 07-09-2024 Note [facility] 06-11-2024 Note [facility] 05-14-2024 Note [facility] 05-01-2024 Note Chronic CHF, [facility]. [facility] 05-01-2024 Note [facility] 05-01-2024 Note [facility] 05-01-2024 Note [facility] 04-30-2024 Note [facility] 04-30-2024 Note [facility] 04-30-2024 Note [facility] 04-30-2024 Note [facility] 04-30-2024 Note [facility] 04-30-2024 Note [facility] 04-29-2024 Note [facility] 04-29-2024 Note [facility] 04-28-2024 Note [facility] 04-28-2024 Note [facility] 04-27-2024 Note [facility] 04-26-2024 Note [facility] 04-26-2024 Note [facility] 04-26-2024 Note [facility] 04-26-2024 Note 10:00-SW sent update s to facility-await precert. OTM will continue to follow. [facility] 04-26-2024 Note [facility] 04-25-2024 Note [facility] 04-25-2024 Note 8:30-SW sent updates to [facility]-currently awaiting precert that was requested yesterday. OTM will continue to follow. [facility] 04-25-2024 Note [facility] 04-24-2024 Note [facility] 04-24-2024 Note [facility] 04-24-2024 Note [facility] 04-24-2024 Note [facility] 04-24-2024 Note [facility] 04-24-2024 Note [facility] 04-23-2024 Note New referral sent to Rosendo Banda [facility] 04-23-2024 Note [facility] 04-23-2024 Note [facility] 04-23-2024 Note [facility] 04-23-2024 Note [facility] 04-23-2024 Note [facility] 04-22-2024 Note Addendum created 1430 by Kirt Nicole MD Intra[facility] Event edited, Intraprocedure Staff edited [facility] 04-22-2024 Note [facility] 04-22-2024 Note [facility] 04-22-2024 Note [facility] 04-22-2024 Note [facility] 04-22-2024 Note [facility] 04-22-2024 Note [facility] 12-05-2023 History of Presen t illness Narrative .Subjective Patient ID: Monica Acosta is a 62 y.o. female. 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 Status post partial amputation of left foot ([facility]) Diabetic polyneuropathy associated with type 2 diabetes mellitus ([facility]) - TSH; Future Severe depression ([facility]) PAD (peripheral artery disease) ([facility]) Compression fracture of L1 vertebra with routine [...] diversion, or non compliance. BECCA Cordero 12/05/23 1328 documented in this encounter [employer] 11-29-2023 History of Presen t illness Narrative The OARRS/MAPPS database was reviewed today and found to be appropriate. No indication of medication diversion, or non compliance. Demetra Macario TWYLA Porter-MYRA 11/29/23 0745 documented in this encounter [facility] 11-15-2023 History of Presen t illness Narrative The OARRS/MAPPS database was reviewed today and found to be appropriate. No indication of medication diversion, or non compliance. Demetra Macario TWYLA Porter-MYRA 11/15/23 0759 documented in this encounter [facility] 10-16-2023 Miscellaneous Notes She has requesting a refill of her controlled substance but she is overdue for an appointment. She needs to set 1 up as soon as possible documented in this encounter [facility] 10-16-2023 Telephone encounter Note She has requesting a refill of her controlled substance but she is overdue for an appointment. She needs to set 1 up as soon as possible [facility] 10-04-2023 Miscellaneous Notes Rx sent in. She is due for a controlled substance recheck next week documented in this encounter [facility] 10-04-2023 Telephone encounter Note Rx sent in. She is due for a controlled substance recheck next week [facility] 11-22-2021 Evaluation note Encounter Date Diagnosis Assessment Notes [...] care instructions given in writting by [facility] Care At Home document [employer] Other Evaluation note* Diagnosis Compression fracture of L1 vertebra with routine healing, subsequent encounter [facility] Diagnosis Compression fracture of L1 vertebra with routine healing, subsequent encounter documented in this encounter [facility] Diagnosis Compression fracture of L1 vertebra with routine healing, subsequent encounter documented in this encounter [facility] [facility] SystemEvaluation note* Diagnosis Rheumatoid arthritis involving multiple sites, unspecified whether rheumatoid factor present ([facility])- Primary Status post partial amputation of left foot ([facility] Diabetic polyneuropathy associated with type 2 diabetes mellitus ([facility]) Severe depression ([facility]) Depressive disorder, not elsewhere classified PAD (peripheral artery disease) ([facility]) Unspecified peripheral vascular disease Compression fracture of L1 vertebra with routine healing, subsequent encounter Mixed hyperlipidemia documented in this encounter [facility] - [facility]* Type Description Date Medical History diabetes mallitus Medical History chronic depression Medical History high blood pressure Medical History high cholesterol Medical History rheumatoid arthritis Surgical History open heart surgery [employer] Other InstructionsNot on filedocumented in this encounter [facility] filedocument[facility] filedocumented in this encounter [facility] filed[facility] Purpose Family History No Family [...] Records Found Hospital Course Note MR#: [id number] [facility] Pt. Name: Monica Acosta Admitted: 06/30/2020 Discharged: [...] regimen and follow up with the primary contact center agent. HOSPITAL COURSE: The patient is a 59-year-old [...] and content) DATE CREATED AUTHOR 10/15/2020 [facility] DATE CREATED AUTHOR AUTHOR'S ORGANIZ ATION 09/23/2021 [facility] DATE CREATED AUTHOR AUTHOR'S ORGANIZ ATION 10/19/2022 [facility] DATE CREATED AUTHOR AUTHOR'S ORGANIZ ATION 08/03/2023 [facility] EPIC DATE CREATED AUTHOR AUTHOR'S ORGANIZ ATION 04/16/2024 [facility] DATE CREATED AUTHOR AUTHOR'S ORGANIZ ATION 04/16/2024 [facility] DATE CREATED AUTHOR AUTHOR'S ORGANIZ ATION 07/20/2024 [facility] REASON FOR VISIT (unrecogniz ed section and content) Reason Onset Date Comments Med Refill 09/12/2023 Reason Onset Date Comments Med Refill 10/04/2023 Reason Onset Date Comments Med Refill 10/16/2023 Reason Onset Date Comments Med Refill 10/31/2023 Reason Onset Date Comments Med Refill 11/14/2023 Reason Comments controlled sub 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[employer] Relationship Specialty Start Date End Date Zen Flores DO [address] [place] [address] PCP - General Family Medicine 09/18/19 [employer] Relationship Specialty Start Date End Date Zen Flores DO [address] [address] PCP - General Family Medicine 09/18/19 [employer] Relationship Specialty Start Date End Date Zen Flores DO [address] [address] PCP - General Family Medicine 09/18/19 [employer] Relationship Specialty Start Date End Date Zen Flores DO [address] [address] PCP - General Family Medicine 09/18/19 [employer] Relationship Specialty Start Date End Date Zen Flores DO [address] [place] [address] PCP - General Family Medicine 09/18/19 FOR RECORDS PERTAINING TO PATIENTS WHO [...] BE BASED ON THE PRIMARY CLINICAL RECORDS. [employer] [facility]. provides no warranty or guarantee of the accuracy or completeness of information in this document.
== END 2024-07-25 13:53 | disposition home or self-care (01) ==
LOC: WC 13:52
PROVIDERS: PCP Family Medicine; Visit Provider Physician Assistant
DX: E11.621 Type 2 diabetes mellitus with foot ulcer (principal); L97.412 Non-pressure chronic ulcer of right heel and midfoot with fat layer exposed
CPT/HCPCS: A6213; G0463

== ENCOUNTER 2024-08-23 14:18 | Outpatient (OUT) | payer MEDICARE, MEDICAID, SELFPAY | END 2024-08-23 14:19 | disposition home or self-care (01) | LOC: WC 14:19 | PROVIDERS: PCP Family Medicine; Visit Provider Physician Assistant | DX: L97.918 Non-pressure chronic ulcer of unspecified part of right lower leg with other specified severity (principal); L89.610 Pressure ulcer of right heel, unstageable | CPT/HCPCS: A6213; G0463 ==

== ENCOUNTER 2024-10-02 15:31 | Outpatient (OUT) | payer MEDICARE, MEDICAID, SELFPAY ==
--- OUTSIDE RECORDS SUMMARY | 2024-10-02 15:42 | XMS_ITS | CCD ---
Author Organization [facility] Care Team Providers Care Staff Toxicologist Name Role Phone SELF, REFERRED Referring Unavailable YISEL, ALEXANDER Admitting Unavailable ELGAFY CHILANGO K Surgeon Unavailable DIONNE HYATT Attending Unavailable MO Procedure Practitioner Unavailab le UNKNOWN, PHYSICIAN Primary Care Unavailable SELF, REFERRED Referring Unavailable SELF, REFERRED Primary Care Unavailable ELGAFY, CHILANGO K Attending Unavailable ELGAFRabia CHILANGO K Admitting Unavailable Veronica Mcneill Unavailable RADHA BRANNON Admitting Unavailable RADHA BRANNON Attending Unavailable SANDRA, DR ZEN Reinoso Primary Care Unavailable HIGHLRADHA VASQUEZ Consulting Unavailable REBECCA BRENNAN Consulting Unavailable RADHA BRANNON Admitting Unavailable CLOVIS, RADHA Nogueira Attending Unavailable CHANTALLOWILFREDO, DR ZEN Reinoso Primary Care Unavailable RADHA BRANNON Admitting Unavailable RADHA BRANNON Attending Unavailable FURLOWILFREDO, DR ZEN Reinoso Primary Care Unavailable FURLONG, DR ZEN Reinoso Primary Care Unavailable MARKER, DR MANJARREZ Admitting Unavailable MARKER, DR MANJARREZ Attending Unavailable MARKER, DR MANJARREZ Consulting Unavailable LAZARUS QUINTANILLA Consulting Unavailable RADHA BRANNON Admitting Unavailable RADHA BRANNON Attending Unavailable SANDRA, DR ZEN Reinoso Primary Care Unavailable HIGHLRADHA VASQUEZ Consulting Unavailable MIKA REBECCA Consulting Unavailable RADHA BRANNON Admitting Unavailable RADHA BRANNON Attending Unavailable SANDRA, DR ZEN Reinoso Primary Care Unavailable RADHA BRANNON Admitting Unavailable RADHA BRANNON Attending Unavailable SANDRA, DR ZEN Reinoso Primary Care Unavailable ABBAS, DR BLANCO Admitting Unavailable ABBAS, DR BLANCO Attending Unavailable SANDRA, DR ZEN Reinoso Primary Care Unavailable ABBAS, DR BLANCO Consulting Unavailable YOMAIRA, DR RICHARD Sidhu Consulting Unavailable RADHA BRANNON Consulting Unavailable CHARLOTTE, DR DEMETRA Sidhu Admitting Unavailable CHARLOTTE, DR DEMETRA Sidhu Attending Unavailable SANDRA, DR ZEN Reinoso Primary Care Unavailable ZIEBER, DR RICHARD Sidhu Consulting Unavailable KUNBrian, DR DEMETRA Sidhu Consulting Unavailable HIGHLANDER, RADHA Nogueira Admitting Unavailable HIGHLANDER, RADHA Nogueira Attending Unavailable FURLONG, DR ZEN Reinoso Primary Care Unavailable HIGHLANDER, RADHA Nogueira Consulting Unavailable HIGHLANDER, RADHA Nogueira Admitting Unavailable HIGHLANDER, RADHA Nogueira Attending Unavailable FURLONG, DR ZEN Reinoso Primary Care Unavailable HIGHLANDER, RADHA Nogueira Admitting Unavailable HIGHLANDER, RADHA Nogueira Attending Unavailable FURLONG, DR ZEN Reinoso Primary Care Unavailable RIVERHEAD, DR ANN García Consulting Unavailable HIGHLANDER, RADHA Nogueira Consulting Unavailable HIGHLANDER, RADHA Nogueira Admitting Unavailable HIGHLANDER, RADHA Nogueira Attending Unavailable FURLONG, DR ZEN Reinoso Primary Care Unavailable HIGHLANDER, RADHA Nogueira Admitting Unavailable HIGHLANDER, RADHA Nogueira Attending Unavailable FURLONG, DR ZEN Reinoso Primary Care Unavailable HIGHLANDER, RADHA Nogueira Admitting Unavailable HIGHLANDER, RADHA Nogueira Attending Unavailable FURJAZZYNG, DR ZEN Reinoso Primary Care Unavailable FARIBA CARRERA Admitting Unavailable FARIBA CARRERA Attending Unavailable SANDRA, DR ZEN Reinoso Primary Care Unavailable YOMAIRA, DR RICHARD Sidhu Consulting Unavailable DEBI, FARIBA Consulting Unavailable DEBI, FARIBA Admitting Unavailable DEBI, FARIBA Attending Unavailable SANDRA, DR ZEN Reinoso Primary Care Unavailable FURLONG, DR ZEN Reinoso Primary Care Unavailable SCHUYLER, DR JAMES Reinoso Consulting Unavailabl e SCHUYLER, DR JAMES Reinoso Admitting Unavailabl e REINFREYA, DR JAMES Reinoso Attending Unavailabl e SANDRA, DR ZEN Reinoso Primary Care Unavailable KENDRA, DR HARRELL Admitting Unavailable KENDRA, DR HARRELL Attending Unavailable KENDRA, DR HARRELL Consulting Unavailable RICHARD BRONSON Consulting Unavailable SANDRA, DR ZEN Reinoso Primary Care Unavailable KENDRA, DR HARRELL Admitting Unavailable KENDRA, DR HARRELL Attending Unavailable KENDRA, DR HARRELL Consulting Unavailable MARY, JANETT Consulting Unavailable AKILA, JOEL Consulting Unavailable REMI, GIOVANNI Lambert Consulting Unavailable SLICKEREThea, DR RUDOLPH Farnsworth Attending Unavailable LICHA, DR RUDOLPH Farnsworth Admitting Unavailable SANDRA, DR ZEN Reinoso Primary Care Unavailable JEAN-PAUL, DR CHAYITO Sidhu Consulting Unavailable ALESSANDRO, DR HENRY Consulting Unavailable LICHA, DR RUDOLPH Farnsworth Consulting Unavailable HIGHLCHRISTINA, RADHA Nogueira Consulting Unavailable ANDRADE DIAL Consulting Unavailable ENRRIQUE GONCALVES Consulting Unavailable RADHA BRANNON Procedure Practitioner Unava ASH Elizabeth Consulting Unavailable FURLONG, DR ZEN Reinoso Primary Care Unavailable FAWWAD, CAMPBELL H Admitting Unavailable FAWWAD, CAMPBELL H Attending Unavailable SHANKAR, DR ANN García Consulting Unavailable ZIEBER, DR RICHARD Sidhu Consulting Unavailable HIGHLANDERRADHA Consulting Unavailable FAFREDERIC, H Consulting Unavailable GIAN BALDWIN Consulting Unavailable SOLA STEVE Consulting Unavailable HERRERA NOLAN Consulting Unavailable FURLONG, DR ZEN Reinoso Primary Care Unavailable ALESSANDRO, DR HENRY Consulting Unavailable JEROMY, DR NAOMIE Dalton Admitting Unavailable PINZON, DR NAOMIE Dalton Attending Unavailable PINZON, DR NAOMIE Dalton Consulting Unavailable ZIEBER, DR RICHARD Sidhu Consulting Unavailable HIGHLANDER, RADHA Nogueira Consulting Unavailable SILVINA ARAUJO Consulting Unavailable AYYAGARI, BRENDA Consulting Unavailable RICHARD VILLATORO Consulting Unavailable MIKHAIL, DANNY Consulting Unavailable HIGHLRADHA VASQUEZ Admitting Unavailable HIGHLCHRISTINA, RADHA Nogueira Attending Unavailable SANDRA, DR ZEN Reinoso Primary Care Unavailable HIGHLANDER, RADHA Nogueira Consulting Unavailable FURLONG, DR ZEN Reinoso Admitting Unavailable FURLONG, DR ZEN Reinoso Attending Unavailable FURLONG, DR ZEN Reinoso Primary Care Unavailable HIGHLANDER, RADHA Nogueira Admitting Unavailable HIGHLANDER, RADHA Nogueira Attending Unavailable FURLONG, DR ZEN Reinoso Primary Care Unavailable LUCYER, DR RICHARD Sidhu Consulting Unavailable HIGHLANDERRADHA Consulting Unavailable FURLONG, DR ZEN Reinoso Primary Care Unavailable FAWWAD, CAMPBELL H Admitting Unavailable AMID, CAMPBELL H Attending Unavailable SCHUYLER, DR JAMES Reinoso Consulting UnavailPADMINI Allison Consulting Unavailable NORA NARAYAN Consulting Unavailable FAWWAD, CAMPBELL H Consulting Unavailable SARAH SOLIS Consulting Unavailable ANN PEREA Consulting Unavailable ELIZONDO, DANNY Consulting Unavailable HIGHLRADHA VASQUEZ Admitting Unavailable HIGHLANDERRADHA Attending Unavailable FURLOWILFREDO, DR ZEN Reinoso Primary Care Unavailable Furlong Zen WISE Primary Care Provider [phone] DEMETRA PORTER Attending Unavailable ZEN FLORES Referring Unavailable ZEN FLORES Primary Care Unavailable ZEN FLORES Attending Unavailable FURLONGZEN Referring Unavailable FURLONG, ZEN G Primary Care [...] Unavailable FURLONG, ZEN G Primary Care Unavailable SHENDGE, VITHAL Referring Unavailable SHENDGE, VITHAL Referring Unavailable PEREZ, BROOKE Referring Unavailable SHENDGE, VITHAL Attending Unavailable SHENDGE, VITHAL Attending Unavailable SHENDGE, VITHAL Attending Unavailable SHENDGE, VITHAL Attending Unavailable SHENDGE, VITHAL Referring Unavailable HAYJULIO CESAR Referring Unavailable HINUNU Admitting Unavailable VELY, AEDANTE Attending Unavailable STEENHOFF, ISIDRO Referring Unavailable STEENHOFF, ISIDRO Referring Unavailable STEENHOFF, ISIDRO Referring Unavailable PEREZ, BROOKE Referring Unavailable SHENDGE, VITHAL Referring Unavailable SEAY, ANTONIO Referring Unavailable SHENDGE, VITHAL Referring Unavailable CHONGAUTUMN Referring Unavailable SHUCKCORTNEY Referring Unavailable SHENDGE, VITHAL Referring Unavailable SHENDGE, VITHAL Referring Unavailable Furlong Zen SHAVER Primary Care Provider [phone] Rudolph Hurt MD Primary Care Provider [phone] RUDOLPH HURT Attending Unavailable SRIRAM, AHMAD F Attending Unavailable SRIRAM, AHMAD F Referring Unavailable Allergies Allergy Classification Reported Allergen(s) Allergy Type Date of Onset Reaction(s) Facility (1 source) Adhesive Tape Drug allergy (disorder) 0 [facility] (7 sources) Amino Acids; 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: [LISINOPRIL] Drug Allergy 0 [facility] (1 source) Bee/Wasp/Ant venom; 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: [Bee/Wasp Stings] Propensity to adverse reactions (disorder) 0 [facility] (6 sources) Codeine; 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: [CODEINE] Drug Allergy 0 [facility] (6 sources) Morphine; 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: [MORPHINE] Drug Allergy 0 [facility] (2 sources) bee venom Drug allergy (disorder) [facility] (4 sources) cilostazol; 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: [CILOSTAZOL] Drug Allergy 0 [facility] (2 sources) Desonide Drug Allergy [facility] (4 sources) HYDROmorphone; 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: [HYDROMORPHONE] Drug Allergy 0 [facility] (1 source) icosapent ethyl Drug Allergy [facility] (12 sources) Adhesive agent; 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: [ADHESIVE] Propensity to adverse reactions to drug 1 [facility] (12 sources) Bee pollen; 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: [BEE POLLEN] Drug Allergy 0 [facility] (9 sources) cilostazol Drug Allergy 0 [facility] (13 sources) Codeine Drug Allergy 0 Other [facility] (15 sources) HYDROmorphone Drug Allergy 0 [facility] (12 sources) icosapent ethyl; 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: [ICOSAPENT ETHYL] Drug Allergy 2 [facility] Lisinopril Drug Allergy 0 [facility] (13 sources) Morphine Drug Allergy 0 Other [facility] (12 sources) Bee Venom Protein (Honey Bee); 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: [BEE VENOM PROTEIN (HONEY BEE)] Propensity to adverse reactions to drug 1 [facility] (6 sources) Honey bee venom Propensity to adverse reactions 1 [facility] (6 sources) Lisinopril Allergy to substance 0 Other [facility] (6 sources) Wound Dressing Adhesive Drug Intolerance 1 [facility] Medications Current Medications Medication Drug Class(es) Dates Sig (Normalized) Sig (Original) acetaminophen 325 mg / HYDROcodone bitartrate 5 mg oral tablet (20 sources) Opioid Agonist Start: 09-19-2024 End: 09-26-2024 take 1 tablet by mouth four times daily as needed for pain HYDROcodone-aceta minophen ([place]) 5-325 MG tablet Indications: Rheumatoid arthritis involving multiple sites with positive rheumatoid factor ([facility]/HCC) Take 1 tablet by mouth 4 (four) times a day as needed for severe pain for up to 7 days 28 tablet 09/19/2024 09/26/2024 Active Start: 10-18-2023 End: 12-05-2023 take 1 tablet by mouth twice daily as needed for pain HYDROcodone-acetaminophen (NORCO) 7.5-32 5 mg per tablet Indications: Rheumatoid arthritis involving multiple sites, unspecified whether rheumatoid factor present ([facility]) Take 1 tablet by mouth 2 (two) times a day as needed for pain. 60 tablet 0 12/05/2023 Active Start: 08-18-2023 End: 10-16-2023 take 1 tablet by mouth twice daily as needed for pain HYDROcodone-acetaminophen (NORCO) 7.5-32 5 mg per tablet Indications: Compression fracture of L1 vertebra with routine healing, subsequent encounter Take 1 tablet by mouth 2 (two) times a day as needed for pain. 14 tablet 0 10/05/2023 10/16/2023 Discontinued (Reorder) End: 09-19-2024 HYDROcodone-acetaminophen (N orco) 5-325 MG tablet 09/19/2024 Discontinued HYDROcodone-Acet aminophen Active [id number] 200 actuat albuterol 0.09 mg/actuat metered dose inhaler (10 sources) beta2-Adrenergic Agonist Start: 07-27-2021 take 2 [...] as needed. 0 Active aspirin 81 mg delayed release oral tablet (15 sources) Platelet Aggregation Inhibitor, Nonsteroidal Anti-inflammatory Drug take 1 tablet by mouth in the morning aspirin 81 MG EC tablet Take 81 mg by mouth in the morning. Active take 81 mg by mouth once daily B SATHISH ASPIRIN ORAL Take 81 mg by mouth daily. 0 Active atenolol 50 mg oral tablet (16 sources) beta-Adrenergic Rakan Start: 06-17-2023 take 1 tablet by mouth in the morning atenoloL (TENORMIN) 50 mg tablet Take 1 tablet (50 mg total) by mouth in the morning. 90 tablet 1 06/17/2023 Active Atenolol Active atorvastatin 80 mg oral tablet (16 sources) HMG-CoA Reductase Inhibitor Start: 05-17-2023 take [...] a day for 7 days Jul, Active Blood Glucose Monitoring Suppl (OneTouch Verio Reflect) w/Device kit (6 sources) End: 09-19-2024 Blood Glucose Monitoring Suppl (OneTouch Verio Reflect) w/Device kit 09/19/2024 Discontinued Blood Glucose Mo nitoring Suppl (OneTouch Verio Reflect) w/Device kit Active cariprazine 1.5 mg oral capsule (6 sources) Atypical Antipsychotic End: 09-19-2024 Cariprazine HCl (Vraylar) 1.5 MG capsule Take by mouth 09/19/2024 Discontinued celecoxib 200 mg oral capsule (15 sources) Nonsteroidal Anti-inflammatory Drug Start: 08-18-2023 take 1 capsule by mouth in the morning, then take 1 capsule by mouth at bedtime celecoxib (CeleBREX) 200 mg capsule Take 1 capsule (200 mg total) by mouth in the morning and 1 capsule (200 mg total) before bedtime. 60 capsule 2 08/18/2023 Active cholecalciferol 0.025 mg oral capsule (15 sources) Vitamin D End: 09-19-2024 take 1 capsule by mouth in the morning cholecalciferol (Vitamin D-3) 25 MCG (1000 UT) capsule Take 1,000 Units by mouth in the morning. 09/19/2024 Discontinued cholecalciferol, vitamin D3, 5,000 units tablet cholecalciferol (vitamin D3) 125 mcg (5,000 unit) tablet 0 Active Continuous Glucose [employer] (FreeStyle Tru 14 Day [place]) device (6 sources) End: 09-19-2024 Continuous Glucose [employer] (FreeStyle Tru 14 Day [place]) device 09/19/2024 Discontinued Continuous Gluco se [employer] (FreeStyle Tru 14 Day [place]) device Active Continuous Glucose Sensor (FreeStyle Tru 14 Day Sensor) misc (6 sources) End: 09-19-2024 Continuous Glucose Sensor (FreeStyle Tru 14 Day Sensor) misc 09/19/2024 Discontinued Continuous Gluco se Sensor (FreeStyle Tru 14 Day Sensor) misc Active cyclobenzaprine hydrochloride 10 mg oral tablet (12 sources) Muscle Relaxant Start: 02-09-2024 End: 09-19-2024 take 1 tablet by mouth three times daily as needed for muscle spasms cyclobenzaprine (Flexeril) 10 MG tablet Take 10 mg by mouth 3 (three) times a day as needed for muscle spasms 02/09/2024 09/19/2024 Discontinued Start: 06-06-2023 take 1 tablet by nguyen every eight hours cyclobenzaprine (FLEXERIL) 10 mg tablet take 1 tablet by mouth every 8 hours if needed 90 tablet 1 06/06/2023 Active 24 hr dilTIAZem hydrochloride 180 mg extended release oral capsule (6 sources) Calcium Channel Rakan End: 09-19-2024 take 1 capsule by mouth once daily, then take 1 capsule by mouth every twenty-four hours dilTIAZem CD (Cardizem CD) 180 MG 24 hr capsule Take 180 mg by mouth Daily 09/19/2024 Discontinued DULoxetine 30 mg delayed release oral capsule (20 sources) Serotonin and Norepinephrine Reuptake Inhibitor Start: 08-18-2023 take 1 capsule by mouth once daily in the morning DULoxetine (CYMBALTA) 30 mg capsule take 1 capsule by mouth every morning 90 capsule 1 08/18/2023 Active Start: 04-05-2023 take 1 capsule by mo mth in the morning DULoxetine (CYMBALTA) 60 mg capsule Take 1 capsule (60 mg total) by mouth in the morning. 90 capsule 1 04/05/2023 Active DULoxetine HCl A ctive folic acid 1 mg oral tablet (3 sources) Start: 09-19-2024 take 1 tablet by mouth once daily folic acid (Folvite) 1 MG tablet Indications: Rheumatoid arthritis involving multiple sites with positive rheumatoid factor (CMS/HCC) Take 1 tablet (1 mg) by mouth Daily 30 tablet 5 09/19/2024 Active Start: 09-19-2024 take 1 tablet by nguyen th once daily folic acid (Folvite) 1 MG tablet Indications: Rheumatoid arthritis involving multiple sites with positive rheumatoid factor (CMS/HCC) Take 1 tablet (1 mg) by mouth Daily 30 tablet 5 09/19/2024 Active Folic Acid Activ e FreeStyle Tru 14 Day Sensor (1 source) FreeStyle Tru 14 Day Sensor Active gabapentin 100 mg oral capsule (6 sources) Anti-epileptic Agent take 1 capsule by mouth in the morning, then take 1 capsule by mouth in the evening, then take 1 capsule by mouth at bedtime gabapentin (Neurontin) 100 MG capsule Take 1 capsule by mouth in the morning and 1 capsule in the evening and 1 capsule before bedtime. Active HYDROcodone bitartrate 7.5 mg / ibuprofen 200 mg oral tablet (6 sources) Opioid Agonist, Nonsteroidal Anti-inflammatory Drug End: HYDROcodone-ibuprofe n (Vicoprofen) 7.5-200 MG tablet 09/19/2024 Discontinued insulin aspart protamine, human 70 unt/ml / insulin aspart, human 30 unt/ml injectable suspension (15 sources) Insulin Analog End: insulin aspart protamine-insulin aspart (NovoLOG Mix 70-30) (70-30) 100 UNIT/ML injection Inject under the skin 2 (two) times a day with meals. 09/19/2024 Discontinued insulin asp prt- insulin aspart (NovoLOG 70/30) 100 unit/mL (70-30) injection Inject under the skin. 0 Active insulin aspart, human 100 unt/ml injectable solution (20 sources) Insulin Analog Start: 08-21-2024 End: 11-19-2024 Insulin Aspart (NovoLOG) 100 UNIT/ML solution Indications: Type 1 diabetes mellitus with hyperglycemia (HCC) (CMS/HCC) Inject 50 Units as directed Daily 60 mL 1 08/21/2024 11/19/2024 Active End: 08-21-2024 insulin aspart (NovoLOG, Jodee sp) 100 UNIT/ML patient supplied pump Inject under the skin continuously Active insulin aspart U -100 (NovoLOG) 100 unit/mL injection Novolog U-100 Insulin aspart 100 unit/mL subcutaneous solution 0 Active NovoLOG Active leflunomide 20 mg oral tablet (7 sources) Antirheumatic Agent End: 09-19-2024 take 1 tablet by mouth once daily leflunomide (Arava) 20 MG tablet Take 20 mg by mouth Daily 09/19/2024 Discontinued Leflunomide Acti ve levothyroxine sodium 0.075 mg oral tablet (2 sources) l-Thyroxine take 1 tablet by mouth before mealtime levothyroxine (Synthroid, Levoxyl) 75 MCG tablet Take 75 mcg by mouth in the morning. Take before meals. Active methocarbamol 500 mg oral tablet (2 sources) Muscle Relaxant Start: 05-01-20 24 methocarbamol (Robaxin) 500 MG tablet Take 500 mg by mouth in the morning and 500 mg at noon and 500 mg in the evening. 05/01/2024 Active methotrexate 2.5 mg oral tablet (2 sources) Folate Analog Metabolic Inhibitor Start: 09-19-19 25 take 4 tablets by mouth every week methotrexate 2.5 MG tablet Indications: Rheumatoid arthritis involving multiple sites with positive rheumatoid factor (CMS/HCC) 4 tabs PO once a week 16 tablet 5 09/19/2024 Active Start: 09-19-2024 take 4 tablets by mo uth every week methotrexate 2.5 MG tablet Indications: Rheumatoid arthritis involving multiple sites with positive rheumatoid factor (CMS/HCC) 4 tabs PO once a week 16 tablet 5 09/19/2024 Active midodrine hydrochloride 10 mg oral tablet (6 sources) alpha-Adrenergic Agonist End: 09-19-2024 take 1 tablet by mouth in the morning, then take 1 tablet by mouth in the evening, then take 1 tablet by mouth at bedtime midodrine (Proamatine) 10 MG tablet Take 10 mg by mouth in the morning and 10 mg in the evening and 10 mg before bedtime. 09/19/2024 Discontinued nitroglycerin 0.4 mg sublingual tablet (15 sources) Nitrate Vasodilator Start: 11-19-2022 nitroglycerin (NITROSTAT) 0.4 MG SL tablet Indications: Coronary arteriosclerosis 1 sublingually Q5 minutes prn chest pain 25 tablet 1 11/19/2022 Active nitroglycerin (N itrostat) 0.[address] 0.4 mg under the tongue every 5 (five) minutes if needed for chest pain. Active ondansetron 4 mg oral tablet (6 sources) Serotonin-3 Receptor Antagonist End: 09-19-2024 ondansetron (Zofran) 4 MG tablet Take by mouth. 09/19/2024 Discontinued pantoprazole 40 mg delayed release oral tablet (16 sources) Proton Pump Inhibitor End: 09-19-2024 take 1 tablet by mouth before mealtime pantoprazole (ProtoNix) 40 MG EC tablet Take 40 mg by mouth in the morning. Take before meals. Do not crush, chew, or split.. 09/19/2024 Discontinued Pantoprazole Sod ium Active Problems Active Problems Problem Classification Problem Date Documented Da te Episodic/Chronic Acquired foot deformities (2 sources) Other hammer toe(s) (acquired), left foot; 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: [Hallux varus (acquired), unspecified foot] Onset: 05-19-2022 Chronic Anxiety disorders (20 sources) Anxiety disorder, unspecified; 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: [Other specified anxiety disorders] Onset: 08-16-2019 05-21-2022 Chronic Cardiac dysrhythmias (15 sources) Other specified cardiac arrhythmias; 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: [Unspecified [...] Chronic Coronary atherosclerosis and other heart disease (20 sources) Atherosclerotic heart disease of [place] coronary artery without angina pectoris; 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: [Acute [...] Onset: 01-08-2022 Chronic Diabetes mellitus without complication (12 sources) Type 2 diabetes mellitus without complications; 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: [Type 1 diabetes mellitus] Onset: 01-08-1965 05-21-2022 Chronic Diabetes mellitus without complication (9 sources) Presence of insulin pump (external) (internal); 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: [Insulin pump present] Onset: 10-19-2022 07-18-2024 Episodic Disorders of lipid metabolism (20 sources) Pure hypercholesterolemia, unspecified; 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: [Hypertriglyceridemia ] Onset: 11-04-2020 05-21-2022 Chronic Esophageal disorders (10 sources) Gastro-esophageal reflux disease without esophagitis; 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: [Gastroesophageal reflux disease] Onset: 08-18-2019 05-21-2022 Chronic Genitourinary symptoms and ill-defined conditions (9 sources) Urge incontinence of urine; 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: [Urge incontinence] Onset: 04-01-2023 04-01-2023 Chronic Headache; including migraine (9 sources) Migraine; 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: [Migraine, unspecified, not intractable, without status migrainosus] Onset: 08-16-2019 05-21-2022 Chronic Hypertension with complications and secondary hypertension (1 source) Hypertensive chronic kidney disease with stage 1 through stage 4 chronic kidney disease, or unspecified chronic kidney disease; 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: [HTN CKD W/STAGE 1-4 CKD/UNS CKD] Onset: 03-22-2022 Chronic Immunity disorders (9 sources) Sarcoidosis; 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: [Sarcoidosis, unspecified] Onset: 05-21-2022 [...] [Other fatigue] Onset: 08-18-2022 Episodic Mood disorders (12 sources) Major depressive disorder, single episode, unspecified; 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: [Severe depression] Onset: 08-16-2019 04-01-2023 Chronic Nausea and vomiting (1 source) Vomiting, unspecified; 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: [VOMITING UNSPECIFIED] Onset: 08-18-2022 Episodic Nutritional deficiencies (8 sources) Vitamin D deficiency; 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: [Vitamin D deficiency, unspecified] Onset: 07-18-2024 07-18-2024 Chronic Osteoarthritis (14 sources) Unspecified osteoarthritis, unspecified site; 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: [Primary osteoarthritis, right ankle and foot] Onset: 05-13-2022 Chronic Osteoporosis (12 sources) Age-related osteoporosis without current pathological fracture; 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: [Senile osteoporosis] Onset: 09-18-2019 09-18-2019 Chronic Other acquired deformities (1 source) Contracture, left ankle; 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: [CONTRACTURE LEFT ANKLE] Onset: 03-22-2022 Chronic Other aftercare (1 source) 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; 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: [SENIOR LIVING 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 INSULIN] Onset: 10-19-2022 Episodic Other aftercare (1 source) Other residential (current) drug therapy; 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: [OTH SENIOR LIVING CURRENT DRUG THERAPY] Onset: 10-19-2022 Episodic Other aftercare (1 source) termite treater (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 aspirin; 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: [TELESCOPE MAINTENANCE 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 ASPIRIN] Onset: 08-18-2022 Episodic Other aftercare (2 sources) Encounter for therapeutic drug level monitoring; 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: [Encounter for therapeutic drug level monitoring] Onset: 03-26-2024 Episodic Other aftercare (10 sources) Long-term current use of insulin; 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: [residential (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] Onset: 07-18-2024 07-18-2024 Episodic Other aftercare (4 sources) Long-term current use of drug therapy; 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: [Other residential (current) drug therapy] Onset: 09-19-2024 09-19-2024 Episodic Other bone disease and musculoskeletal deformities (2 sources) History of amputation of left foot; 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: [Acquired absence of left foot] Onset: 12-05-2023 12-05-2023 Chronic Other bone disease and musculoskeletal deformities (1 source) Acquired absence of left foot; 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: [Acquired absence of left foot] Onset: 12-05-2023 Chronic Other fractures (16 sources) Compression fracture of lumbar spine; 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: [Wedge compression fracture of first lumbar vertebra, subsequent encounter for fracture with routine healing] Onset: 09-29-2020 09-12-2023 Episodic Other gastrointestinal disorders (1 source) Diarrhea, unspecified; 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: [DIARRHEA UNSPECIFIED] Onset: 08-18-2022 Episodic Other lower respiratory disease (1 source) Personal history of pneumonia (recurrent); 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: [PERSONAL HX OF PNEUMONIA RECURRENT] Onset: 08-18-2022 Episodic Peripheral and visceral atherosclerosis (16 sources) Peripheral vascular disease, unspecified; 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: [Peripheral vascular disease, unspecified] Onset: 01-28-2022 11-19-2022 Chronic Residual codes; unclassified (3 sources) Transient alteration of awareness; 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: [TRANSIENT ALTERATION OF AWARENESS] Onset: 10-17-2022 Episodic Residual codes; unclassified (1 source) Acquired absence of other specified parts of digestive tract; 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: [ACQ ABSENCE OTH PART DIGESTV TRACT] Onset: 08-18-2022 Episodic Rheumatoid arthritis and related disease (20 sources) Rheumatoid arthritis, unspecified; 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: [Rheumatoid nodule, [...] [ACUTE KIDNEY FAILURE UNSPECIFIED] Onset: 03-22-2022 Episodic Administrative/social admission (8 sources) Patient encounter status; 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: [Dietary counseling and surveillance] Onset: 07-18-2024 Resolved: 09-19-2024 07-18-2024 Episodic Cardiac dysrhythmias (1 source) Tachycardia, unspecified; 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: [TACHYCARDIA UNSPECIFIED] Onset: 05-04-2022 Episodic Complications of surgical procedures or medical care (5 sources) Other complications of procedures, not elsewhere classified, initial encounter; 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: [OTH COMPLICATIONS PROC NEC INITIAL] Onset: 03-18-2022 Episodic E Codes: Fall (3 sources) Unspecified fall, initial encounter; 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: [UNSPECIFIED FALL INITIAL ENCOUNTER] Onset: 05-20-2022 Episodic Essential hypertension (20 sources) Essential (primary) hypertension; 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: [Hypertensive disorder] Onset: 08-16-2019 Resolved: 09-19-2024 05-21-2022 Chronic Fluid and electrolyte disorders (1 source) Dehydration; 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: [DEHYDRATION] Onset: 11-05-2021 Episodic Fracture of lower limb (4 sources) Unspecified fracture of shaft of left tibia, initial encounter for closed fracture; 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: [Unspecified fracture of shaft of left fibula, initial encounter for closed fracture] Onset: 04-22-2024 Episodic Fracture of lower limb (4 sources) Unspecified fracture of shaft of right tibia, initial encounter for open fracture type I or II; 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: [Unspecified fracture of shaft of right fibula, initial encounter for open fracture type I or II] Onset: 04-22-2024 Episodic Genitourinary symptoms and ill-defined conditions (3 sources) Dysuria; 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: [Proteinuria, unspecified] Onset: 05-21-2022 Episodic Mood disorders (10 sources) Mood disorders; 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: [DEPRESSION UNSPECIFIED] Onset: [...] Onset: 01-08-2022 Episodic Other connective tissue disease (9 sources) Primary fibromyalgia syndrome; 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: [Fibromyalgia] Onset: [...] healing] Onset: 05-21-2022 Episodic Other gastrointestinal disorders (3 sources) Constipation, [...] Episodic Other nutritional; endocrine; and metabolic disorders (9 sources) Overweight; 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: [Overweight] Onset: 04-01-2023 04-01-2023 [...] LOWER LIMB] Onset: 10-28-2021 Episodic Pathological fracture (9 sources) Pathological fracture due to osteoporosis; 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: [Other osteoporosis with current pathological fracture, unspecified site, initial encounter for fracture] Onset: 07-17-2020 05-21-2022 Episodic Phlebitis; thrombophlebitis and thromboembolism (11 sources) Personal history of other venous thrombosis [...] Test Name Value Interpretation Reference Range Facility Glucose (Bld) [Mass/Vol]Orde red By: Meenakshi Heck on 08-21-2024 Glucose Blood, POC 100 mg/dL [facility] - Hematology and Cell countson 08-21-2024 HbA1c (Bld) [Mass fraction] 7.5 % [facility] No Panel InformationOrdered By: Meenakshi Heck on 08-21-2024 [facility] Follow-Upon 08-13-2024 Follow-Up [facility] 36on 05-15-2024 36 Looks like patient told Dr Shipman was already taking these medications. Dr shipman did not prescribe patient anything. She will need to contact pcp office. [facility] 36 Kady from [place] called for clarification on calcium and vit D3 order from , [place] does not currently have an order for calcium and vit D3 for patient, please fax clarification to Fax:[phone] [facility] 36on 05-08-2024 36 [facility] 36 [facility] Telephoneon 05-08-2024 Telephone [facility] 30on 05-01-2024 30 [facility] 30 [facility] BASIC METABOLIC PANELon 04-06 Anion gap [Moles/Vol] 10 mmol/L Normal - [facility] [place] Comment on above: Performed By: #### L [id number] ####[facility] ([facility])[address] [place] [address] Calcium [Mass/Vol] 9.1 mg/dL Normal 8.6-10.3 [facility] Comment on above: Performed By: #### L [id number] ####[facility] (BEAKER)[address] [place] [address] Chloride [Moles/Vol] 95 mmol/L Low 98-107 [facility] Comment on above: Performed By: #### L [id number] ####[facility] ([facility])[address] [place] [address] CO2 [Moles/Vol] 32 mmol/L High 21-31 [facility] Comment on above: Performed By: #### L [id number] ####[facility] ([facility])[address] [place] [address] Creatinine [Mass/Vol] 0.76 mg/dL Normal 0.60-1.20 [facility] Comment on above: Performed By: #### L [id number] ####[facility] ([facility])[address] [place] [address] GLOMERULAR FILTRATION RATE ML/MIN/1.73 SQ M.PREDICTED 87.4 mL/min/1.73m*2 Normal >60.0 [facility] Comment on above: Result Comment: [facility]???s estimated glomerular filtration rate (eGFR) will no [...] of individuals. Performed By: #### L [id number] ####[facility] ([facility])[address] [place] [address] Glucose [Mass/Vol] 102 mg/dL High 70-100 [facility] Comment on above: Performed By: #### L [id number] ####[facility] ([facility])[address] [place] [address] Potassium [Moles/Vol] 4.4 mmol/L Normal 3.5-5.1 [facility] [place] Comment on above: Performed By: #### L [id number] ####[facility] ([facility])[address] [place] [address] Sodium [Moles/Vol] 133 mmol/L Low 136-145 [facility] Comment on above: Performed By: #### L [id number] ####[facility] ([facility])[address] [place] [address] Urea nitrogen [Mass/Vol] 23 mg/dL Normal 7-25 [facility] Comment on above: Performed By: #### L [id number] ####[facility] ([facility])[address] [place] [address] UREA NITROGEN/CREATININE (MASS RATIO) IN SER/PLAS 30.3 Normal [facility] Comment on above: Performed By: #### L [id number] ####[facility] ([facility])[address] [place] [address] CBCon 05-01-2024 Erythrocyte distribution width (RBC) [Ratio] 15.1 % High 11.5-15.0 [facility] Comment on above: Performed By: #### L [id number] ####[facility] ([facility])[address] [place] [address] ERYTHROCYTE MEAN CORPUSCULAR HEMOGLOBIN CONCENTRATION (G/DL) BY AUTOMATED 32.2 g/dL Normal 32.0-35.0 [facility] Comment on above: Performed By: #### L [id number] ####[facility] ([facility])[address] [place] [address] Hematocrit (Bld) [Volume fraction] 35.4 % Low 36.0-48.0 [facility] Comment on above: Performed By: #### L [id number] ####[facility] ([facility])[address] [place] [address] Hemoglobin (Bld) [Mass/Vol] 11.4 g/dL Low 12.0-15.0 [facility] Comment on above: Performed By: #### L [id number] ####[facility] ([facility])[address] [place] [address] MCH (RBC) [Entitic mass] 29.8 pg Normal 27.0-33.0 [facility] Comment on above: Performed By: #### L [id number] ####[facility] ([facility])[address] [place] [address] MCV (RBC) [Entitic vol] 92.7 fL Normal 82.0-98.0 [facility] Comment on above: Performed By: #### L [id number] ####[facility] ([facility])[address] [place] [address] PLATELETS (10*3/UL) IN BLOOD AUTOMATED COUNT 425 10*3/uL High 150-400 [facility] Comment on above: Performed By: #### L [id number] ####[facility] ([facility])[address] [place] [address] RBC (Bld) [#/Vol] 3.82 10*6/uL Normal 3.80-5.00 [facility] Comment on above: Performed By: #### L [id number] ####[facility] ([facility])[address] [place] [address] WBC (Bld) [#/Vol] 9.39 10*3/uL Normal 4.00-10.60 [facility] Comment on above: Performed By: #### L [id number] ####[facility] ([facility])[address] [place] [address] CONSULTon 05-01-2024 CONSULT 13:25-SW requested transport for patient-await response. 14:40-SW notified [facility] can transport at 3:20pm-SW to make packet. 15:15-SW gave packet to [facility] crew.[id number] completed. OTM will continue to follow. Normal [facility] DSon 05-01-2024 DS Normal [facility] MAGNESIUMon 05-01-2024 Magnesium [Mass/Vol] 1.9 mg/dL Normal 1.9-2.7 [facility] Comment on above: Performed By: #### L [id number] ####[facility] ([facility])[address] [place] [address] NURSNOTEon 05-01-2024 NURSNOTE [employer]or attempted to call [employer] for report. Appliance Counselor was on hold for 5 minutes, was not able to leave voicemail. Normal [facility] PHOSPHORUSon 05-01-2024 Magnesium [Mass/Vol] 3.5 mg/dL Normal 2.5-5.0 [facility] Comment on above: Performed By: #### L [id number] ####[facility] ([facility])[address] [place] [address] POCT GLUCOSE METER UNSOLICIT ED RESULTSon 05-01-2024 Glucose [Mass/Vol] 99 mg/dL Normal 70-105 [facility] Comment on above: Order Comment: Waive d Testing in the ED is performed under the ED CLIA certificate #[id number]. Result Comment: [email or web address] Performed By: #### L [id number] ####[facility] ([facility])[address] [place] [address] Glucose [Mass/Vol] 103 mg/dL Normal 70-105 [facility] Comment on above: Order Comment: Waive d Testing in the ED is performed under the ED CLIA certificate #[id number]. Result Comment: elac umsky Performed By: #### L [id number] ####[facility] ([facility])[address] [place] [address] BASIC METABOLIC PANELon 04-06 Anion gap [Moles/Vol] 11 mmol/L Normal 7-20 [facility] Comment on above: Performed By: #### L [id number] ####[facility] ([facility])[address] [place] [address] Calcium [Mass/Vol] 9.0 mg/dL Normal 8.6-10.3 [facility] Comment on above: Performed By: #### L [id number] ####[facility] ([facility])[address] [place] [address] Chloride [Moles/Vol] 94 mmol/L Low 98-107 [facility] Comment on above: Performed By: #### L [id number] ####[facility] ([facility])[address] [place] [address] CO2 [Moles/Vol] 34 mmol/L High 21-31 [facility] Comment on above: Performed By: #### L [id number] ####[facility] ([facility])[address] [place] [address] Creatinine [Mass/Vol] 0.78 mg/dL Normal 0.60-1.20 [facility] Comment on above: Performed By: #### L [id number] ####[facility] ([facility])[address] [place] [address] GLOMERULAR FILTRATION RATE ML/MIN/1.73 SQ M.PREDICTED 84.8 mL/min/1.73m*2 Normal >60.0 [facility] Comment on above: Result Comment: [facility]???s estimated glomerular filtration rate (eGFR) will no [...] of individuals. Performed By: #### L [id number] ####[facility] ([facility])[address] [place] [address] Glucose [Mass/Vol] 121 mg/dL High 70-100 [facility] Comment on above: Performed By: #### L [id number] ####[facility] ([facility])[address] [place] [address] Potassium [Moles/Vol] 4.4 mmol/L Normal 3.5-5.1 [facility] [place] Comment on above: Performed By: #### L [id number] ####[facility] ([facility])[address] [place] [address] Sodium [Moles/Vol] 135 mmol/L Low 136-145 [facility] Comment on above: Performed By: #### L [id number] ####[facility] ([facility])[address] [place] [address] Urea nitrogen [Mass/Vol] 20 mg/dL Normal 7-25 [facility] Comment on above: Performed By: #### L [id number] ####[facility] ([facility])[address] [place] [address] UREA NITROGEN/CREATININE (MASS RATIO) IN SER/PLAS 25.6 Normal [facility] Comment on above: Performed By: #### L [id number] ####[facility] ([facility])[address] [place] [address] CBCon 04-30-2024 Erythrocyte distribution width (RBC) [Ratio] 14.7 % Normal 11.5-15.0 [facility] Comment on above: Performed By: #### L [id number] ####[facility] ([facility])[address] [place] [address] ERYTHROCYTE MEAN CORPUSCULAR HEMOGLOBIN CONCENTRATION (G/DL) BY AUTOMATED 31.7 g/dL Low 32.0-35.0 [facility] Comment on above: Performed By: #### L [id number] ####[facility] ([facility])[address] [place] [address] Hematocrit (Bld) [Volume fraction] 36.3 % Normal 36.0-48.0 [facility] Comment on above: Performed By: #### L [id number] ####[facility] ([facility])[address] [place] [address] Hemoglobin (Bld) [Mass/Vol] 11.5 g/dL Low 12.0-15.0 [facility] Comment on above: Performed By: #### L [id number] ####[facility] ([facility])[address] [place] [address] MCH (RBC) [Entitic mass] 30.3 pg Normal 27.0-33.0 [facility] Comment on above: Performed By: #### L [id number] ####[facility] ([facility])[address] [address] MCV (RBC) [Entitic vol] 95.8 fL Normal 82.0-98.0 [facility] Comment on above: Performed By: #### L [id number] ####[facility] ([facility])[address] [place] [address] PLATELETS (10*3/UL) IN BLOOD AUTOMATED COUNT 381 10*3/uL Normal 150-400 [facility] Comment on above: Performed By: #### L [id number] ####[facility] ([facility])[address] [address] RBC (Bld) [#/Vol] 3.79 10*6/uL Low 3.80-5.00 [facility] Comment on above: Performed By: #### L [id number] ####[facility] ([facility])[address] [place] [address] WBC (Bld) [#/Vol] 9.02 10*3/uL Normal 4.00-10.60 [facility] Comment on above: Performed By: #### L [id number] ####[facility] ([facility])[address] [place] [address] MAGNESIUMon 04-30-2024 Magnesium [Mass/Vol] 1.8 mg/dL Low 1.9-2.7 [facility] Comment on above: Performed By: #### L [id number] ####[facility] ([facility])[address] [place] [address] PHOSPHORUSon 04-30-2024 Magnesium [Mass/Vol] 3.2 mg/dL Normal 2.5-5.0 [facility] Comment on above: Performed By: #### L [id number] ####[facility] ([facility])[address] [place] [address] POCT GLUCOSE METER UNSOLICIT ED RESULTSon 04-30-2024 Glucose [Mass/Vol] 160 mg/dL High 70-105 [facility] Comment on above: Order Comment: Waive d Testing in the ED is performed under the ED CLIA certificate #[id number]. Result Comment: saravanan downey Performed By: #### L [id number] ####[facility] ([facility])[address] [place] [address] Glucose [Mass/Vol] 111 mg/dL High 70-105 [facility] Comment on above: Order Comment: Waive d Testing in the ED is performed under the ED CLIA certificate #[id number]. Result Comment: epoo [email or web address] Performed By: #### L [id number] ####[facility] ([facility])[address] [place] [address] Glucose [Mass/Vol] 172 mg/dL High 70-105 [facility] Comment on above: Order Comment: Waive d Testing in the ED is performed under the ED CLIA certificate #[id number]. Result Comment: epoo [email or web address] Performed By: #### L [id number] ####[facility] ([facility])[address] [place] [address] Glucose [Mass/Vol] 160 mg/dL High 70-105 [facility] Comment on above: Order Comment: Waive d Testing in the ED is performed under the ED CLIA certificate #[id number]. Result Comment: epoo [email or web address] Performed By: #### L [id number] ####[facility] ([facility])[address] [place] [address] BASIC METABOLIC PANELon 04-06 Anion gap [Moles/Vol] 10 mmol/L Normal 7-20 [facility] Comment on above: Performed By: #### L [id number] ####[facility] ([facility])[address] [place] [address] Calcium [Mass/Vol] 8.9 mg/dL Normal 8.6-10.3 [facility] Comment on above: Performed By: #### L [id number] ####[facility] ([facility])[address] [place] [address] Chloride [Moles/Vol] 95 mmol/L Low 98-107 [facility] Comment on above: Performed By: #### L [id number] ####[facility] ([facility])[address] [place] [address] CO2 [Moles/Vol] 34 mmol/L High 21-31 [facility] Comment on above: Performed By: #### L [id number] ####[facility] ([facility])[address] [place] [address] Creatinine [Mass/Vol] 0.89 mg/dL Normal 0.60-1.20 [facility] Comment on above: Performed By: #### L [id number] ####[facility] ([facility])[address] [place] [address] GLOMERULAR FILTRATION RATE ML/MIN/1.73 SQ M.PREDICTED 72.4 mL/min/1.73m*2 Normal >60.0 [facility] Comment on above: Result Comment: [facility]???s estimated glomerular filtration rate (eGFR) will no [...] of individuals. Performed By: #### L [id number] ####[facility] ([facility])[address] [place] [address] Glucose [Mass/Vol] 173 mg/dL High 70-100 [facility] Comment on above: Performed By: #### L [id number] ####[facility] ([facility])[address] [place] [address] Potassium [Moles/Vol] 4.7 mmol/L Normal 3.5-5.1 [facility] [place] Comment on above: Performed By: #### L [id number] ####[facility] ([facility])[address] [place] [address] Sodium [Moles/Vol] 134 mmol/L Low 136-145 [facility] Comment on above: Performed By: #### L [id number] ####[facility] ([facility])[address] [place] [address] Urea nitrogen [Mass/Vol] 16 mg/dL Normal 7-25 [facility] Comment on above: Performed By: #### L [id number] ####[facility] ([facility])[address] [place] [address] UREA NITROGEN/CREATININE (MASS RATIO) IN SER/PLAS 18.0 Normal [facility] Comment on above: Performed By: #### L [id number] ####[facility] ([facility])[address] [place] [address] CBCon 04-29-2024 Erythrocyte distribution width (RBC) [Ratio] 14.6 % Normal 11.5-15.0 [facility] Comment on above: Performed By: #### L [id number] ####[facility] ([facility])[address] [place] [address] ERYTHROCYTE MEAN CORPUSCULAR HEMOGLOBIN CONCENTRATION (G/DL) BY AUTOMATED 31.0 g/dL Low 32.0-35.0 [facility] Comment on above: Performed By: #### L [id number] ####[facility] ([facility])[address] [place] [address] Hematocrit (Bld) [Volume fraction] 33.9 % Low 36.0-48.0 [facility] Comment on above: Performed By: #### L [id number] ####[facility] ([facility])[address] [place] [address] Hemoglobin (Bld) [Mass/Vol] 10.5 g/dL Low 12.0-15.0 [facility] Comment on above: Performed By: #### L [id number] ####[facility] ([facility])[address] [place] [address] MCH (RBC) [Entitic mass] 30.1 pg Normal 27.0-33.0 [facility] Comment on above: Performed By: #### L [id number] ####[facility] ([facility])[address] [place] [address] MCV (RBC) [Entitic vol] 97.1 fL Normal 82.0-98.0 [facility] Comment on above: Performed By: #### L [id number] ####[facility] ([facility])[address] [place] [address] PLATELETS (10*3/UL) IN BLOOD AUTOMATED COUNT 320 10*3/uL Normal 150-400 [facility] Comment on above: Performed By: #### L [id number] ####[facility] ([facility])[address] [place] [address] RBC (Bld) [#/Vol] 3.49 10*6/uL Low 3.80-5.00 [facility] Comment on above: Performed By: #### L [id number] ####[facility] ([facility])[address] [place] [address] WBC (Bld) [#/Vol] 9.12 10*3/uL Normal 4.00-10.60 [facility] Comment on above: Performed By: #### L [id number] ####[facility] ([facility])[address] [place] [address] MAGNESIUMon 04-29-2024 Magnesium [Mass/Vol] 1.9 mg/dL Normal 1.9-2.7 [facility] Comment on above: Performed By: #### L [id number] ####[facility] ([facility])[address] [place] [address] NURSNOTEon 04-29-2024 NURSNOTE Normal [facility] PHOSPHORUSon 04-29-2024 Magnesium [Mass/Vol] 3.1 mg/dL Normal 2.5-5.0 [facility] Comment on above: Performed By: #### L [id number] ####[facility] ([facility])[address] [place] [address] POCT GLUCOSE METER UNSOLICIT ED RESULTSon 04-29-2024 Glucose [Mass/Vol] 116 mg/dL High 70-105 [facility] Comment on above: Order Comment: Waive d Testing in the ED is performed under the ED CLIA certificate #[id number]. Result Comment: beatrice castaneda Performed By: #### L [id number] ####[facility] ([facility])[address] [place] [address] Glucose [Mass/Vol] 153 mg/dL High 70-105 [facility] Comment on above: Order Comment: Waive d Testing in the ED is performed under the ED CLIA certificate #[id number]. Result Comment: epoo le6 Performed By: #### L [id number] ####[facility] ([facility])[address] [place] [address] Glucose [Mass/Vol] 205 mg/dL High 70-105 [facility] Comment on above: Order Comment: Waive d Testing in the ED is performed under the ED CLIA certificate #[id number]. Result Comment: epoo le6 Performed By: #### L [id number] ####[facility] ([facility])[address] [place] [address] Glucose [Mass/Vol] 181 mg/dL High 70-105 [facility] Comment on above: Order Comment: Waive d Testing in the ED is performed under the ED CLIA certificate #[id number]. Result Comment: [email or web address] Performed By: #### L [id number] ####[facility] ([facility])[address] [place] [address] BASIC METABOLIC PANELon 08-2 Anion gap [Moles/Vol] 7 mmol/L Normal 7-20 [facility] Comment on above: Performed By: #### L [id number] ####[facility] ([facility])[address] [place] [address] Calcium [Mass/Vol] 8.2 mg/dL Low 8.6-10.3 [facility] Comment on above: Performed By: #### L [id number] ####[facility] ([facility])[address] [place] [address] Chloride [Moles/Vol] 98 mmol/L Normal 98-107 [facility] Comment on above: Performed By: #### L [id number] ####[facility] ([facility])[address] [place] [address] CO2 [Moles/Vol] 38 mmol/L High 21-31 [facility] Comment on above: Performed By: #### L [id number] ####[facility] ([facility])[address] [place] [address] Creatinine [Mass/Vol] 0.66 mg/dL Normal 0.60-1.20 [facility] Comment on above: Performed By: #### L [id number] ####[facility] ([facility])[address] [place] [address] GLOMERULAR FILTRATION RATE ML/MIN/1.73 SQ M.PREDICTED 97.9 mL/min/1.73m*2 Normal >60.0 [facility] Comment on above: Result Comment: [facility]???s estimated glomerular filtration rate (eGFR) will no [...] of individuals. Performed By: #### L [id number] ####[facility] ([facility])[address] [place] [address] Glucose [Mass/Vol] 65 mg/dL Low 70-100 [facility] Comment on above: Performed By: #### L [id number] ####[facility] ([facility])[address] [place] [address] Potassium [Moles/Vol] 3.9 mmol/L Normal 3.5-5.1 [facility] Comment on above: Performed By: #### L [id number] ####[facility] ([facility])[address] [place] [address] Sodium [Moles/Vol] 139 mmol/L Normal 136-145 [facility] Comment on above: Performed By: #### L [id number] ####[facility] ([facility])[address] [place] [address] Urea nitrogen [Mass/Vol] 15 mg/dL Normal 7-25 [facility] Comment on above: Performed By: #### L [id number] ####[facility] ([facility])[address] [place] [address] UREA NITROGEN/CREATININE (MASS RATIO) IN SER/PLAS 22.7 Normal [facility] Comment on above: Performed By: #### L [id number] ####[facility] ([facility])[address] [place] [address] CBCon 04-28-2024 Erythrocyte distribution width (RBC) [Ratio] 14.3 % Normal 11.5-15.0 [facility] Comment on above: Performed By: #### L [id number] ####[facility] ([facility])[address] [place] [address] ERYTHROCYTE MEAN CORPUSCULAR HEMOGLOBIN CONCENTRATION (G/DL) BY AUTOMATED 32.3 g/dL Normal 32.0-35.0 [facility] Comment on above: Performed By: #### L [id number] ####[facility] ([facility])[address] [place] [address] Hematocrit (Bld) [Volume fraction] 31.3 % Low 36.0-48.0 [facility] Comment on above: Performed By: #### L [id number] ####[facility] ([facility])[address] [place] [address] Hemoglobin (Bld) [Mass/Vol] 10.1 g/dL Low 12.0-15.0 [facility] Comment on above: Performed By: #### L [id number] ####[facility] ([facility])[address] [place] [address] MCH (RBC) [Entitic mass] 30.0 pg Normal 27.0-33.0 [facility] Comment on above: Performed By: #### L [id number] ####[facility] ([facility])[address] [place] [address] MCV (RBC) [Entitic vol] 92.9 fL Normal 82.0-98.0 [facility] Comment on above: Performed By: #### L [id number] ####[facility] ([facility])[address] [place] [address] PLATELETS (10*3/UL) IN BLOOD AUTOMATED COUNT 280 10*3/uL Normal 150-400 [facility] Comment on above: Performed By: #### L [id number] ####[facility] ([facility])[address] [place] [address] RBC (Bld) [#/Vol] 3.37 10*6/uL Low 3.80-5.00 [facility] Comment on above: Performed By: #### L [id number] ####[facility] ([facility])[address] [place], [place] [address] WBC (Bld) [#/Vol] 7.00 10*3/uL Normal 4.00-10.60 [facility] Comment on above: Performed By: #### L [id number] ####[facility] ([facility])[address] [place] [address] MAGNESIUMon 04-28-2024 Magnesium [Mass/Vol] 2.2 mg/dL Normal 1.9-2.7 [facility] Comment on above: Performed By: #### L [id number] ####[facility] ([facility])[address] [place] [address] NURSNOTEon 04-28-2024 NURSNOTE 0707: Patients glucose found to be 59. Pt declining glucose tabs, instead ate richie crackers and apple juice. Pt also turned off her insulin pump temporarily. 0830: Pt Glucose recheck is 157. Normal [facility] PHOSPHORUSon 04-28-2024 Magnesium [Mass/Vol] 2.1 mg/dL Low 2.5-5.0 [facility] Comment on above: Performed By: #### L [id number] ####[facility] ([facility])[address] [place] [address] POCT GLUCOSE METER UNSOLICIT ED RESULTSon 04-28-2024 Glucose [Mass/Vol] 206 mg/dL High 70-105 [facility] Comment on above: Order Comment: Waive d Testing in the ED is performed under the ED CLIA certificate #[id number]. Result Comment: [email or web address] Performed By: #### L [id number] ####[facility] ([facility])[address] [place] [address] Glucose [Mass/Vol] 207 mg/dL High 70-105 [facility] Comment on above: Order Comment: Waive d Testing in the ED is performed under the ED CLIA certificate #[id number]. Result Comment: [email or web address] Performed By: #### L [id number] ####[facility] ([facility])[address] [place] [address] Glucose [Mass/Vol] 184 mg/dL High 70-105 [facility] Comment on above: Order Comment: Waive d Testing in the ED is performed under the ED CLIA certificate #[id number]. Result Comment: [email or web address] Performed By: #### L [id number] ####[facility] ([facility])[address] [place] [address] Glucose [Mass/Vol] 157 mg/dL High 70-105 [facility] Comment on above: Order Comment: Waive d Testing in the ED is performed under the ED CLIA certificate #[id number]. Result Comment: [email or web address] Performed By: #### L [id number] ####[facility] ([facility])[address] [place] [address] Glucose [Mass/Vol] 59 mg/dL Low 70-105 [facility] Comment on above: Order Comment: Waive d Testing in the ED is performed under the ED CLIA certificate #[id number]. Result Comment: [email or web address] Performed By: #### L [id number] ####[facility] ([facility])[address] [place] [address] 30on 04-27-2024 30 Normal [facility] BASIC METABOLIC PANELon 04-06 Anion gap [Moles/Vol] 10 mmol/L Normal 7-20 [facility] Comment on above: Performed By: #### L [id number] ####[facility] ([facility])[address] [place] [address] Calcium [Mass/Vol] 7.6 mg/dL Low 8.6-10.3 [facility] Comment on above: Performed By: #### L [id number] ####[facility] ([facility])[address] [place] [address] Chloride [Moles/Vol] 100 mmol/L Normal 98-107 [facility] Comment on above: Performed By: #### L [id number] ####[facility] ([facility])[address] [place] [address] CO2 [Moles/Vol] 32 mmol/L High 21-31 [facility] Comment on above: Performed By: #### L [id number] ####[facility] ([facility])[address] [place] [address] Creatinine [Mass/Vol] 0.81 mg/dL Normal 0.60-1.20 [facility] Comment on above: Performed By: #### L [id number] ####[facility] ([facility])[address] [place] [address] GLOMERULAR FILTRATION RATE ML/MIN/1.73 SQ M.PREDICTED 81.0 mL/min/1.73m*2 Normal >60.0 [facility] Comment on above: Result Comment: [facility]???s estimated glomerular filtration rate (eGFR) will no [...] of individuals. Performed By: #### L [id number] ####[facility] ([facility])[address] [place] [address] Glucose [Mass/Vol] 111 mg/dL High 70-100 [facility] Comment on above: Performed By: #### L [id number] ####[facility] ([facility])[address] [place] [address] Potassium [Moles/Vol] 3.6 mmol/L Normal 3.5-5.1 [facility] Comment on above: Performed By: #### L [id number] ####[facility] ([facility])[address] [place] [address] Sodium [Moles/Vol] 138 mmol/L Normal 136-145 [facility] Comment on above: Performed By: #### L [id number] ####[facility] ([facility])[address] [place] [address] Urea nitrogen [Mass/Vol] 19 mg/dL Normal 7-25 [facility] Comment on above: Performed By: #### L [id number] ####[facility] ([facility])[address] [place] [address] UREA NITROGEN/CREATININE (MASS RATIO) IN SER/PLAS 23.5 Normal [facility] Comment on above: Performed By: #### L [id number] ####[facility] ([facility])[address] [place] [address] CBCon 04-27-2024 Erythrocyte distribution width (RBC) [Ratio] 14.2 % Normal 11.5-15.0 [facility] Comment on above: Performed By: #### L [id number] ####[facility] ([facility])[address] [place] [address] ERYTHROCYTE MEAN CORPUSCULAR HEMOGLOBIN CONCENTRATION (G/DL) BY AUTOMATED 32.0 g/dL Normal 32.0-35.0 [facility] Comment on above: Performed By: #### L [id number] ####[facility] ([facility])[address] [place] [address] Hematocrit (Bld) [Volume fraction] 29.7 % Low 36.0-48.0 [facility] Comment on above: Performed By: #### L [id number] ####[facility] ([facility])[address] [place] [address] Hemoglobin (Bld) [Mass/Vol] 9.5 g/dL Low 12.0-15.0 [facility] Comment on above: Performed By: #### L [id number] ####[facility] ([facility])[address] [place] [address] MCH (RBC) [Entitic mass] 30.0 pg Normal 27.0-33.0 [facility] Comment on above: Performed By: #### L [id number] ####[facility] ([facility])[address] [place] [address] MCV (RBC) [Entitic vol] 93.7 fL Normal 82.0-98.0 [facility] Comment on above: Performed By: #### L [id number] ####[facility] ([facility])[address] [place] [address] PLATELETS (10*3/UL) IN BLOOD AUTOMATED COUNT 280 10*3/uL Normal 150-400 [facility] Comment on above: Performed By: #### L [id number] ####[facility] ([facility])[address] [place] [address] RBC (Bld) [#/Vol] 3.17 10*6/uL Low 3.80-5.00 [facility] Comment on above: Performed By: #### L [id number] ####[facility] ([facility])[address] [place] [address] WBC (Bld) [#/Vol] 7.40 10*3/uL Normal 4.00-10.60 [facility] Comment on above: Performed By: #### L [id number] ####[facility] ([facility])[address] [place] [address] CK TOTAL AND CKMBon 04-27-20 CREATINE KINASE (U/L) IN SER/PLAS 99.0 U/L Normal 30.0-223.0 [facility] Comment on above: Performed By: #### L [id number] ####[facility] ([facility])[address] [place] [address] CREATINE KINASE MB/CREATINE KINASE TOTAL BY CALCULATION 1.5 Normal 0.0-1.9 [facility] Comment on above: Performed By: #### L [id number] ####[facility] ([facility])[address] [place] [address] CREATINE KINASE-MB (NG/ML) IN SER/PLAS 1.5 ng/mL Normal 0.0-5.0 [facility] Comment on above: Performed By: #### L [id number] ####[facility] ([facility])[address] [place] [address] CONSULTon 04-27-2024 CONSULT Normal [facility] CONSULT Normal [facility] MAGNESIUMon 04-27-2024 Magnesium [Mass/Vol] 1.7 mg/dL Low 1.9-2.7 [facility] Comment on above: Performed By: #### L [id number] ####[facility] ([facility])[address] [place] [address] NURSNOTEon 04-27-2024 NURSNOTE Normal [facility] PHOSPHORUSon 04-27-2024 Magnesium [Mass/Vol] 3.4 mg/dL Normal 2.5-5.0 [facility] Comment on above: Performed By: #### L [id number] ####[facility] ([facility])[address] [place] [address] POCT GLUCOSE METER UNSOLICIT ED RESULTSon 04-27-2024 Glucose [Mass/Vol] 174 mg/dL High 70-105 [facility] Comment on above: Order Comment: Waive d Testing in the ED is performed under the ED CLIA certificate #[id number]. Result Comment: [email or web address] Performed By: #### L [id number] ####[facility] ([facility])[address] [place] [address] Glucose [Mass/Vol] 166 mg/dL High 70-105 [facility] Comment on above: Order Comment: Waive d Testing in the ED is performed under the ED CLIA certificate #[id number]. Result Comment: [email or web address] Performed By: #### L [id number] ####[facility] ([facility])[address] [place] [address] Glucose [Mass/Vol] 215 mg/dL High 70-105 [facility] Comment on above: Order Comment: Waive d Testing in the ED is performed under the ED CLIA certificate #[id number]. Result Comment: [email or web address] Performed By: #### L [id number] ####[facility] ([facility])[address] [place] [address] Glucose [Mass/Vol] 222 mg/dL High 70-105 [facility] Comment on above: Order Comment: Waive d Testing in the ED is performed under the ED CLIA certificate #[id number]. Result Comment: elac [email or web address] Performed By: #### L [id number] ####[facility] ([facility])[address] [place] [address] Glucose [Mass/Vol] 251 mg/dL High 70-105 [facility] Comment on above: Order Comment: Waive d Testing in the ED is performed under the ED CLIA certificate #[id number]. Result Comment: elac umsky Performed By: #### L [id number] ####[facility] ([facility])[address] [place] [address] Glucose [Mass/Vol] 142 mg/dL High 70-105 [facility] Comment on above: Order Comment: Waive d Testing in the ED is performed under the ED CLIA certificate #[id number]. Result Comment: [email or web address] Performed By: #### L [id number] ####[facility] ([facility])[address] [place] [address] Glucose [Mass/Vol] 66 mg/dL Low 70-105 [facility] Comment on above: Order Comment: Waive d Testing in the ED is performed under the ED CLIA certificate #[id number]. Result Comment: [email or web address] Performed By: #### L [id number] ####[facility] ([facility])[address] [place] [address] T4, FREEon 04-27-2024 THYROXINE (T4) FREE (NG/DL) IN SER/PLAS 1.00 ng/dL Normal 0.71-1.85 [facility] Comment on above: Performed By: #### L [id number] ####[facility] ([facility])[address] [place] [address] TSHon 04-27-2024 THYROTROPIN (MIU/L) IN SER/PLAS BY DETECTION LIMIT <= 0.05 MIU/L 6.69 mIU/L High 0.34-5.60 [facility] Comment on above: Performed By: #### L [id number] ####[facility] ([facility])[address] [place] [address] 30on 04-26-2024 30 Normal [facility] BASIC METABOLIC PANELon 04-06 Anion gap [Moles/Vol] 12 mmol/L Normal 7-20 [facility] Comment on above: Performed By: #### L [id number] ####[facility] ([facility])[address] [place] [address] Calcium [Mass/Vol] 8.0 mg/dL Low 8.6-10.3 [facility] Comment on above: Performed By: #### L [id number] ####[facility] ([facility])[address] [place] [address] Chloride [Moles/Vol] 98 mmol/L Normal 98-107 [facility] Comment on above: Performed By: #### L [id number] ####[facility] ([facility])[address] [place] [address] CO2 [Moles/Vol] 28 mmol/L Normal 21-31 [facility] Comment on above: Performed By: #### L [id number] ####[facility] ([facility])[address] [place] [address] Creatinine [Mass/Vol] 0.78 mg/dL Normal 0.60-1.20 [facility] Comment on above: Performed By: #### L [id number] ####[facility] ([facility])[address] [place] [address] GLOMERULAR FILTRATION RATE ML/MIN/1.73 SQ M.PREDICTED 84.8 mL/min/1.73m*2 Normal >60.0 [facility] Comment on above: Result Comment: [facility]???s estimated glomerular filtration rate (eGFR) will no [...] of individuals. Performed By: #### L [id number] ####[facility] ([facility])[address] [place] [address] Glucose [Mass/Vol] 456 mg/dL Critically high 70-100 [facility] Comment on above: Performed By: #### L [id number] ####[facility] ([facility])[address] [place] [address] Potassium [Moles/Vol] 4.8 mmol/L Normal 3.5-5.1 [facility] Comment on above: Performed By: #### L [id number] ####[facility] ([facility])[address] [place] [address] Sodium [Moles/Vol] 133 mmol/L Low 136-145 [facility] Comment on above: Performed By: #### L [id number] ####[facility] ([facility])[address] [place] [address] Urea nitrogen [Mass/Vol] 22 mg/dL Normal 7-25 [facility] Comment on above: Performed By: #### L [id number] ####[facility] ([facility])[address] [place] [address] UREA NITROGEN/CREATININE (MASS RATIO) IN SER/PLAS 28.2 [facility] Comment on above: Performed By: #### L [id number] ####[facility] ([facility])[address] [place] [address] BLOOD CULTUREon 04-26-2024 Bacteria identified Cx Nom (Bld) No growth at 5 days [facility] Comment on above: Order Comment: From a different site than #1. Performed By: #### L [id number] ####[facility] ([facility])[address] [place] [address] Bacteria identified Cx Nom (Bld) No growth at 5 days Normal [facility] Comment on above: Performed By: #### L [id number] ####[facility] ([facility])[address] [place] [address] CBCon 04-26-2024 Erythrocyte distribution width (RBC) [Ratio] 14.6 % Normal 11.5-15.0 [facility] Comment on above: Performed By: #### L [id number] ####[facility] ([facility])[address] [place] [address] ERYTHROCYTE MEAN CORPUSCULAR HEMOGLOBIN CONCENTRATION (G/DL) BY AUTOMATED 31.0 g/dL Low 32.0-35.0 [facility] Comment on above: Performed By: #### L [id number] ####[facility] ([facility])[address] [place] [address] Hematocrit (Bld) [Volume fraction] 33.2 % Low 36.0-48.0 [facility] Comment on above: Performed By: #### L [id number] ####[facility] ([facility])[address] [place] [address] Hemoglobin (Bld) [Mass/Vol] 10.3 g/dL Low 12.0-15.0 [facility] Comment on above: Performed By: #### L [id number] ####[facility] ([facility])[address] [place] [address] MCH (RBC) [Entitic mass] 30.1 pg Normal 27.0-33.0 [facility] Comment on above: Performed By: #### L [id number] ####[facility] ([facility])[address] [place] [address] MCV (RBC) [Entitic vol] 97.1 fL Normal 82.0-98.0 [facility] Comment on above: Performed By: #### L [id number] ####[facility] ([facility])[address] [place] [address] PLATELETS (10*3/UL) IN BLOOD AUTOMATED COUNT 233 10*3/uL Normal 150-400 [facility] Comment on above: Performed By: #### L [id number] ####[facility] ([facility])[address] [place] [address] RBC (Bld) [#/Vol] 3.42 10*6/uL Low 3.80-5.00 [facility] Comment on above: Performed By: #### L [id number] ####[facility] ([facility])[address] [place] [address] WBC (Bld) [#/Vol] 7.37 10*3/uL Normal 4.00-10.60 [facility] Comment on above: Performed By: #### L [id number] ####[facility] ([facility])[address] [place] [address] CBC WITH AUTO DIFFERENTIALon 04-26-2024 Basophils (Bld) [#/Vol] 0.06 10*3/uL Normal 0.00-0.20 [facility] Comment on above: Performed By: #### L [id number] ####[facility] ([facility])[address] [place] [address] Basophils/100 WBC (Bld) 0.7 % Normal 0.0-1.0 [facility] Comment on above: Performed By: #### L [id number] ####[facility] ([facility])[address] [place] [address] Eosinophils (Bld) [#/Vol] 0.25 10*3/uL Normal 0.00-0.50 [facility] Comment on above: Performed By: #### L [id number] ####[facility] ([facility])[address] [place] [address] Eosinophils/100 WBC (Bld) 3.1 % Normal 0.0-6.0 [facility] Comment on above: Performed By: #### L [id number] ####[facility] ([facility])[address] [place] [address] Erythrocyte distribution width (RBC) [Ratio] 14.4 % Normal 11.5-15.0 [facility] Comment on above: Performed By: #### L [id number] ####[facility] ([facility])[address] [place] [address] ERYTHROCYTE MEAN CORPUSCULAR HEMOGLOBIN CONCENTRATION (G/DL) BY AUTOMATED 32.2 g/dL Normal 32.0-35.0 [facility] Comment on above: Performed By: #### L [id number] ####[facility] ([facility])[address] [place] [address] Hematocrit (Bld) [Volume fraction] 32.6 % Low 36.0-48.0 [facility] Comment on above: Performed By: #### L [id number] ####[facility] ([facility])[address] [place] [address] Hemoglobin (Bld) [Mass/Vol] 10.5 g/dL Low 12.0-15.0 [facility] Comment on above: Performed By: #### L [id number] ####[facility] ([facility])[address] [place] [address] Immature granulocytes (Bld) [#/Vol] 0.05 10*3/uL Normal 0.00-0.20 [facility] Comment on above: Performed By: #### L [id number] ####[facility] ([facility])[address] [place] [address] Immature granulocytes/100 WBC (Bld) 0.6 % Normal 0.0-1.0 [facility] Comment on above: Performed By: #### L [id number] ####[facility] ([facility])[address] [place] [address] Lymphocytes (Bld) [#/Vol] 0.90 10*3/uL Low 1.20-4.00 [facility] Comment on above: Performed By: #### L [id number] ####[facility] ([facility])[address] [place] [address] Lymphocytes/100 WBC (Bld) 11.0 % Low 20.0-45.0 [facility] Comment on above: Performed By: #### L [id number] ####[facility] ([facility])[address] [place] [address] MCH (RBC) [Entitic mass] 30.0 pg Normal 27.0-33.0 [facility] Comment on above: Performed By: #### L [id number] ####[facility] ([facility])[address] [place] [address] MCV (RBC) [Entitic vol] 93.1 fL Normal 82.0-98.0 [facility] Comment on above: Performed By: #### L [id number] ####[facility] ([facility])[address] [place] [address] Monocytes (Bld) [#/Vol] 0.61 10*3/uL Normal 0.10-1.00 [facility] Comment on above: Performed By: #### L [id number] ####[facility] ([facility])[address] [place] [address] Monocytes/100 WBC (Bld) 7.4 % Normal 5.0-12.0 [facility] Comment on above: Performed By: #### L [id number] ####[facility] ([facility])[address] [place] [address] Neutrophils (Bld) [#/Vol] 6.32 10*3/uL Normal 1.60-7.60 [facility] Comment on above: Performed By: #### L [id number] ####[facility] ([facility])[address] [place] [address] Neutrophils/100 WBC (Bld) 77.2 % High 40.0-72.0 [facility] Comment on above: Performed By: #### L [id number] ####[facility] ([facility])[address] [place] [address] NRBC (PER 100 WBCS) BY AUTOMATED COUNT 0.0 % Normal 0 [facility] Comment on above: Performed By: #### L [id number] ####[facility] ([facility])[address] [place] [address] PLATELETS (10*3/UL) IN BLOOD AUTOMATED COUNT 290 10*3/uL Normal 150-400 [facility] Comment on above: Performed By: #### L [id number] ####[facility] ([facility])[address] [place] [address] RBC (Bld) [#/Vol] 3.50 10*6/uL Low 3.80-5.00 [facility] Comment on above: Performed By: #### L [id number] ####[facility] ([facility])[address] [place] [address] WBC (Bld) [#/Vol] 8.19 10*3/uL Normal 4.00-10.60 [facility] Comment on above: Performed By: #### L [id number] ####[facility] ([facility])[address] [place] [address] LACTIC ACID, PLASMAon 2023 LACTATE (MMOL/L) IN SER/PLAS 1.7 mmol/L Normal 0.5-2.2 [facility] Comment on above: Performed By: #### L [id number] ####[facility] ([facility])[address] [place] [address] MAGNESIUMon 04-26-2024 Magnesium [Mass/Vol] 2.1 mg/dL Normal 1.9-2.7 [facility] Comment on above: Performed By: #### L [id number] ####[facility] ([facility])[address] [place] [address] MRSA/MSSA DNA NASALon 2023 MRSA DNA Negative Normal Negative [facility] Comment on above: Order Comment: Testi ng [...] preclude nasal colonization. Performed By: #### L [id number] ####[facility] ([facility])[address] [place] [address] MSSA DNA Negative Normal Negative [facility] Comment on above: Order Comment: Testi ng [...] preclude nasal colonization. Performed By: #### L [id number] ####[facility] ([facility])[address] [facility] [place] [address] PHOSPHORUSon 04-26-2024 Magnesium [Mass/Vol] 2.4 mg/dL Low 2.5-5.0 [facility] Comment on above: Performed By: #### L [id number] ####[facility] ([facility])[address] [facility] [place] [address] POCT GLUCOSE METER UNSOLICIT ED RESULTSon 04-26-2024 Glucose [Mass/Vol] 127 mg/dL High 70-105 [facility] Comment on above: Order Comment: Waive d Testing in the ED is performed under the ED CLIA certificate #[id number]. Result Comment: [email or web address] Performed By: #### L [id number] ####[facility] ([facility])[address] [place] [address] Glucose [Mass/Vol] 221 mg/dL High 70-105 [facility] Comment on above: Order Comment: Waive d Testing in the ED is performed under the ED CLIA certificate #[id number]. Result Comment: owit tko Performed By: #### L [id number] ####[facility] ([facility])[address] [facility] [place] [address] Glucose [Mass/Vol] 438 mg/dL High 70-105 [facility] Comment on above: Order Comment: Waive d Testing in the ED is performed under the ED CLIA certificate #[id number]. Result Comment: owit tko Performed By: #### L [id number] ####[facility] ([facility])[address] [place] [address] Glucose [Mass/Vol] 474 mg/dL High 70-105 [facility] Comment on above: Order Comment: Waive d Testing in the ED is performed under the ED CLIA certificate #[id number]. Result Comment: owit tko Performed By: #### L [id number] ####[facility] ([facility])[address] [place] [address] Glucose [Mass/Vol] 480 mg/dL High 70-105 [facility] Comment on above: Order Comment: Waive d Testing in the ED is performed under the ED CLIA certificate #[id number]. Result Comment: stephon campbell Performed By: #### L [id number] ####[facility] ([facility])[address] [place] [address] Glucose [Mass/Vol] 443 mg/dL High 70-105 [facility] Comment on above: Order Comment: Waive d Testing in the ED is performed under the ED CLIA certificate #[id number]. Result Comment: owit tko Performed By: #### L [id number] ####[facility] ([facility])[address] [place] [address] 30on 04-25-2024 30 Normal [facility] 30 Normal [facility] BASIC METABOLIC PANELon 08-2 Anion gap [Moles/Vol] 9 mmol/L Normal 7-20 [facility] Comment on above: Performed By: #### L [id number] ####[facility] ([facility])[address] [place] [address] Calcium [Mass/Vol] 8.7 mg/dL Normal 8.6-10.3 [facility] Comment on above: Performed By: #### L [id number] ####[facility] ([facility])[address] [place] [address] Chloride [Moles/Vol] 102 mmol/L Normal 98-107 [facility] Comment on above: Performed By: #### L [id number] ####[facility] ([facility])[address] [place] [address] CO2 [Moles/Vol] 29 mmol/L Normal 21-31 [facility] Comment on above: Performed By: #### L [id number] ####[facility] ([facility])[address] [place] [address] Creatinine [Mass/Vol] 0.63 mg/dL Normal 0.60-1.20 [facility] Comment on above: Performed By: #### L [id number] ####[facility] ([facility])[address] [place] [address] GLOMERULAR FILTRATION RATE ML/MIN/1.73 SQ M.PREDICTED 99.0 mL/min/1.73m*2 Normal >60.0 [facility] Comment on above: Result Comment: [facility]???s estimated glomerular filtration rate (eGFR) will no [...] of individuals. Performed By: #### L [id number] ####[facility] ([facility])[address] [place] [address] Glucose [Mass/Vol] 175 mg/dL High 70-100 [facility] Comment on above: Performed By: #### L [id number] ####[facility] ([facility])[address] [place] [address] Potassium [Moles/Vol] 3.9 mmol/L Normal 3.5-5.1 [facility] Comment on above: Performed By: #### L [id number] ####[facility] ([facility])[address] [place] [address] Sodium [Moles/Vol] 136 mmol/L Normal 136-145 [facility] Comment on above: Performed By: #### L [id number] ####[facility] ([facility])[address] [place] [address] Urea nitrogen [Mass/Vol] 15 mg/dL Normal 7-25 [facility] Comment on above: Performed By: #### L [id number] ####[facility] ([facility])[address] [place] [address] UREA NITROGEN/CREATININE (MASS RATIO) IN SER/PLAS 23.8 Normal [facility] Comment on above: Performed By: #### L [id number] ####[facility] ([facility])[address] [place] [address] CALCIUM, IONIZEDon CALCIUM IONIZED (MMOL/L) IN BLOOD 1.23 mmol/L Normal 1.15-1.33 [facility] Comment on above: Performed By: #### L [id number] ####[facility] [id number] [place] [address] [place] CBCon 04-25-2024 Erythrocyte distribution width (RBC) [Ratio] 14.5 % Normal 11.5-15.0 [facility] Comment on above: Performed By: #### L [id number] ####[facility] ([facility])[address] [place] [address] ERYTHROCYTE MEAN CORPUSCULAR HEMOGLOBIN CONCENTRATION (G/DL) BY AUTOMATED 33.5 g/dL Normal 32.0-35.0 [facility] Comment on above: Performed By: #### L [id number] ####[facility] ([facility])[address] [place] [address] Hematocrit (Bld) [Volume fraction] 31.0 % Low 36.0-48.0 [facility] Comment on above: Performed By: #### L [id number] ####[facility] ([facility])[address] [place] [address] Hemoglobin (Bld) [Mass/Vol] 10.4 g/dL Low 12.0-15.0 [facility] Comment on above: Performed By: #### L [id number] ####[facility] ([facility])[address] [place] [address] MCH (RBC) [Entitic mass] 30.1 pg Normal 27.0-33.0 [facility] Comment on above: Performed By: #### L [id number] ####[facility] ([facility])[address] [place] [address] MCV (RBC) [Entitic vol] 89.9 fL Normal 82.0-98.0 [facility] Comment on above: Performed By: #### L [id number] ####[facility] ([facility])[address] [place] [address] PLATELETS (10*3/UL) IN BLOOD AUTOMATED COUNT 256 10*3/uL Normal 150-400 [facility] Comment on above: Performed By: #### L [id number] ####[facility] ([facility])[address] [address] RBC (Bld) [#/Vol] 3.45 10*6/uL Low 3.80-5.00 [facility] Comment on above: Performed By: #### L [id number] ####[facility] ([facility])[address] [place] [address] WBC (Bld) [#/Vol] 9.27 10*3/uL Normal 4.00-10.60 [facility] Comment on above: Performed By: #### L [id number] ####[facility] ([facility])[address] [place] [address] MAGNESIUMon 04-25-2024 Magnesium [Mass/Vol] 1.5 mg/dL Low 1.9-2.7 [facility] Comment on above: Performed By: #### L [id number] ####[facility] ([facility])[address] [place] [address] PHOSPHORUSon 04-25-2024 Magnesium [Mass/Vol] 2.0 mg/dL Low 2.5-5.0 [facility] Comment on above: Performed By: #### L [id number] ####[facility] ([facility])[address] [place] [address] Magnesium [Mass/Vol] 1.6 mg/dL Low 2.5-5.0 [facility] Comment on above: Performed By: #### L [id number] ####[facility] ([facility])[address] [place] [address] POCT GLUCOSE METER UNSOLICIT ED RESULTSon 04-25-2024 Glucose [Mass/Vol] 253 mg/dL High 70-105 [facility] Comment on above: Order Comment: Waive d Testing in the ED is performed under the ED CLIA certificate #[id number]. Result Comment: [email or web address] Performed By: #### L [id number] ####[facility] ([facility])[address] [place] [address] Glucose [Mass/Vol] 283 mg/dL High 70-105 [facility] Comment on above: Order Comment: Waive d Testing in the ED is performed under the ED CLIA certificate #[id number]. Result Comment: elac umsky Performed By: #### L [id number] ####[facility] ([facility])[address] [place] [address] Glucose [Mass/Vol] 379 mg/dL High 70-105 [facility] Comment on above: Order Comment: Waive d Testing in the ED is performed under the ED CLIA certificate #[id number]. Result Comment: [email or web address] Performed By: #### L [id number] ####[facility] ([facility])[address] [place] [address] Glucose [Mass/Vol] 334 mg/dL High 70-105 [facility] Comment on above: Order Comment: Waive d Testing in the ED is performed under the ED CLIA certificate #[id number]. Result Comment: elac umsky Performed By: #### L [id number] ####[facility] ([facility]ER)[address] [place] [address] Glucose [Mass/Vol] 197 mg/dL High 70-105 [facility] Comment on above: Order Comment: Waive d Testing in the ED is performed under the ED CLIA certificate #[id number]. Result Comment: [facility] Performed By: #### L [id number] ####[facility] ([facility])[address] [place] [address] 30on 04-24-2023 30 Normal [facility] BASIC METABOLIC PANELon 04-06 Anion gap [Moles/Vol] 10 mmol/L Normal 7-20 [facility] Comment on above: Performed By: #### L [id number] ####[facility] ([facility])[address] [place] [address] Calcium [Mass/Vol] 8.1 mg/dL Low 8.6-10.3 [facility] Comment on above: Performed By: #### L [id number] ####[facility] ([facility])[address] [place] [address] Chloride [Moles/Vol] 104 mmol/L Normal 98-107 [facility] Comment on above: Performed By: #### L [id number] ####[facility] ([facility])[address] [place] [address] CO2 [Moles/Vol] 27 mmol/L Normal 21-31 [facility] Comment on above: Performed By: #### L [id number] ####[facility] ([facility])[address] [place] [address] Creatinine [Mass/Vol] 0.74 mg/dL Normal 0.60-1.20 [facility] Comment on above: Performed By: #### L [id number] ####[facility] ([facility])[address] [place] [address] GLOMERULAR FILTRATION RATE ML/MIN/1.73 SQ M.PREDICTED 90.3 mL/min/1.73m*2 Normal >60.0 [facility] Comment on above: Result Comment: [facility]???s estimated glomerular filtration rate (eGFR) will no [...] of individuals. Performed By: #### L [id number] ####[facility] ([facility])[address] [place] [address] Glucose [Mass/Vol] 189 mg/dL High 70-100 [facility] Comment on above: Performed By: #### L [id number] ####[facility] ([facility])[address] [place] [address] Potassium [Moles/Vol] 4.2 mmol/L Normal 3.5-5.1 [facility] [place] Comment on above: Performed By: #### L [id number] ####[facility] ([facility])[address] [place] [address] Sodium [Moles/Vol] 137 mmol/L Normal 136-145 [facility] Comment on above: Performed By: #### L [id number] ####[facility] ([facility])[address] [place] [address] Urea nitrogen [Mass/Vol] 19 mg/dL Normal 7-25 [facility] Comment on above: Performed By: #### L [id number] ####[facility] ([facility])[address] [place] [address] UREA NITROGEN/CREATININE (MASS RATIO) IN SER/PLAS 25.7 Normal [facility] Comment on above: Performed By: #### L [id number] ####[facility] ([facility])[address] [place] [address] CALCIUM, IONIZEDon 4 CALCIUM IONIZED (MMOL/L) IN BLOOD 1.01 mmol/L Low 1.15-1.33 [facility] Comment on above: Performed By: #### L [id number] ####[facility] RESPIRATORY [id number] [place] [address] [place] CBCon 04-24-2024 Erythrocyte distribution width (RBC) [Ratio] 14.3 % Normal 11.5-15.0 [facility] Comment on above: Performed By: #### L [id number] ####[facility] ([facility])[address] [place] [address] ERYTHROCYTE MEAN CORPUSCULAR HEMOGLOBIN CONCENTRATION (G/DL) BY AUTOMATED 32.3 g/dL Normal 32.0-35.0 [facility] Comment on above: Performed By: #### L [id number] ####[facility] ([facility])[address] [place] [address] Hematocrit (Bld) [Volume fraction] 31.6 % Low 36.0-48.0 [facility] Comment on above: Performed By: #### L [id number] ####[facility] ([facility])[address] [place] [address] Hemoglobin (Bld) [Mass/Vol] 10.2 g/dL Low 12.0-15.0 [facility] Comment on above: Performed By: #### L [id number] ####[facility] ([facility])[address] [place] [address] MCH (RBC) [Entitic mass] 30.3 pg Normal 27.0-33.0 [facility] Comment on above: Performed By: #### L [id number] ####[facility] ([facility])[address] [place] [address] MCV (RBC) [Entitic vol] 93.8 fL Normal 82.0-98.0 [facility] Comment on above: Performed By: #### L [id number] ####[facility] ([facility])[address] [place] [address] PLATELETS (10*3/UL) IN BLOOD AUTOMATED COUNT 242 10*3/uL Normal 150-400 [facility] Comment on above: Performed By: #### L [id number] ####[facility] ([facility])[address] [place] [address] RBC (Bld) [#/Vol] 3.37 10*6/uL Low 3.80-5.00 [facility] Comment on above: Performed By: #### L [id number] ####[facility] ([facility])[address] [place] [address] WBC (Bld) [#/Vol] 8.93 10*3/uL Normal 4.00-10.60 [facility] Comment on above: Performed By: #### L [id number] ####[facility] ([facility])[address] [place] [address] MAGNESIUMon 04-24-2024 Magnesium [Mass/Vol] 1.7 mg/dL Low 1.9-2.7 [facility] Comment on above: Performed By: #### L [id number] ####[facility] ([facility])[address] [place] [address] POCT GLUCOSE METER UNSOLICIT ED RESULTSon 04-24-2024 Glucose [Mass/Vol] 269 mg/dL High 70-105 [facility] Comment on above: Order Comment: Waive d Testing in the ED is performed under the ED CLIA certificate #[id number]. Result Comment: [email or web address] Performed By: #### L [id number] ####[facility] ([facility])[address] [place] [address] Glucose [Mass/Vol] 361 mg/dL High 70-105 [facility] Comment on above: Order Comment: Waive d Testing in the ED is performed under the ED CLIA certificate #[id number]. Result Comment: micky quiroz Performed By: #### L [id number] ####[facility] ([facility])[address] [place] [address] Glucose [Mass/Vol] 185 mg/dL High 70-105 [facility] Comment on above: Order Comment: Waive d Testing in the ED is performed under the ED CLIA certificate #[id number]. Result Comment: elac umsky Performed By: #### L [id number] ####[facility] ([facility])[address] [place] [address] Glucose [Mass/Vol] 209 mg/dL High 70-105 [facility] Comment on above: Order Comment: Waive d Testing in the ED is performed under the ED CLIA certificate #[id number]. Result Comment: elac umsky Performed By: #### L [id number] ####[facility] ([facility])[address] [place] [address] Glucose [Mass/Vol] 199 mg/dL High 70-105 [facility] Comment on above: Order Comment: Waive d Testing in the ED is performed under the ED CLIA certificate #[id number]. Result Comment: [email or web address] gun Performed By: #### L [id number] ####[facility] ([facility])[address] [place] [address] Glucose [Mass/Vol] 304 mg/dL High 70-105 [facility] Comment on above: Order Comment: Waive d Testing in the ED is performed under the ED CLIA certificate #[id number]. Result Comment: [facility] Performed By: #### L [id number] ####[facility] ([facility])[address] [place] [address] BASIC METABOLIC PANELon - Anion gap [Moles/Vol] 9 mmol/L Normal 7-20 [facility] Comment on above: Performed By: #### L [id number] ####[facility] ([facility])[address] [place] [address] Calcium [Mass/Vol] 8.4 mg/dL Low 8.6-10.3 [facility] Comment on above: Performed By: #### L [id number] ####[facility] ([facility])[address] [place] [address] Chloride [Moles/Vol] 106 mmol/L Normal 98-107 [facility] Comment on above: Performed By: #### L [id number] ####[facility] ([facility])[address] [place] [address] CO2 [Moles/Vol] 25 mmol/L Normal 21-31 [facility] Comment on above: Performed By: #### L [id number] ####[facility] ([facility])[address] [place] [address] Creatinine [Mass/Vol] 0.78 mg/dL Normal 0.60-1.20 [facility] Comment on above: Performed By: #### L [id number] ####[facility] ([facility])[address] [place] [address] GLOMERULAR FILTRATION RATE ML/MIN/1.73 SQ M.PREDICTED 84.8 mL/min/1.73m*2 Normal >60.0 [facility] Comment on above: Result Comment: [facility]???s estimated glomerular filtration rate (eGFR) will no [...] of individuals. Performed By: #### L [id number] ####[facility] ([facility])[address] [place] [address] Glucose [Mass/Vol] 107 mg/dL High 70-100 [facility] Comment on above: Performed By: #### L [id number] ####[facility] ([facility])[address] [place] [address] Potassium [Moles/Vol] 3.7 mmol/L Normal 3.5-5.1 [facility] Comment on above: Performed By: #### L [id number] ####[facility] ([facility])[address] [place] [address] Sodium [Moles/Vol] 136 mmol/L Normal 136-145 [facility] Comment on above: Performed By: #### L [id number] ####[facility] ([facility])[address] [place] [address] Urea nitrogen [Mass/Vol] 21 mg/dL Normal 7-25 [facility] Comment on above: Performed By: #### L [id number] ####[facility] ([facility])[address] [place] [address] UREA NITROGEN/CREATININE (MASS RATIO) IN SER/PLAS 26.9 Normal [facility] Comment on above: Performed By: #### L [id number] ####[facility] ([facility])[address] [place] [address] Anion gap [Moles/Vol] 10 mmol/L Normal 7-20 [facility] Comment on above: Performed By: #### L [id number] ####[facility] ([facility])[address] [place] [address] Calcium [Mass/Vol] 8.7 mg/dL Normal 8.6-10.3 [facility] Comment on above: Performed By: #### L [id number] ####[facility] ([facility])[address] [place] [address] Chloride [Moles/Vol] 106 mmol/L Normal 98-107 [facility] Comment on above: Performed By: #### L [id number] ####[facility] ([facility])[address] [place] [address] CO2 [Moles/Vol] 26 mmol/L Normal 21-31 [facility] Comment on above: Performed By: #### L [id number] ####[facility] ([facility])[address] [place] [address] Creatinine [Mass/Vol] 0.87 mg/dL Normal 0.60-1.20 [facility] Comment on above: Performed By: #### L [id number] ####[facility] ([facility])[address] [place] [address] GLOMERULAR FILTRATION RATE ML/MIN/1.73 SQ M.PREDICTED 74.4 mL/min/1.73m*2 Normal >60.0 [facility] Comment on above: Result Comment: [facility]???s estimated glomerular filtration rate (eGFR) will no [...] of individuals. Performed By: #### L [id number] ####[facility] ([facility])[address] [place] [address] Glucose [Mass/Vol] 175 mg/dL High 70-100 [facility] Comment on above: Performed By: #### L [id number] ####[facility] ([facility])[address] [place] [address] Potassium [Moles/Vol] 4.4 mmol/L Normal 3.5-5.1 [facility] Comment on above: Performed By: #### L [id number] ####[facility] ([facility])[address] [place] [address] Sodium [Moles/Vol] 138 mmol/L Normal 136-145 [facility] Comment on above: Performed By: #### L [id number] ####[facility] ([facility])[address] [place] [address] Urea nitrogen [Mass/Vol] 24 mg/dL Normal 7-25 [facility] Comment on above: Performed By: #### L [id number] ####[facility] ([facility])[address] [place] [address] UREA NITROGEN/CREATININE (MASS RATIO) IN SER/PLAS 27.6 Normal [facility] Comment on above: Performed By: #### L [id number] ####[facility] ([facility])[address] [place] [address] CBCon 04-23-2024 Erythrocyte distribution width (RBC) [Ratio] 14.0 % Normal 11.5-15.0 [facility] Comment on above: Performed By: #### L [id number] ####[facility] ([facility])[address] [address] ERYTHROCYTE MEAN CORPUSCULAR HEMOGLOBIN CONCENTRATION (G/DL) BY AUTOMATED 29.8 g/dL Low 32.0-35.0 [facility] Comment on above: Performed By: #### L [id number] ####[facility] ([facility])[address] [place] [address] Hematocrit (Bld) [Volume fraction] 22.8 % Low 36.0-48.0 [facility] Comment on above: Performed By: #### L [id number] ####[facility] ([facility])[address] [place] [address] Hemoglobin (Bld) [Mass/Vol] 6.8 g/dL Low 12.0-15.0 [facility] Comment on above: Performed By: #### L [id number] ####[facility] ([facility])[address] [place] [address] MCH (RBC) [Entitic mass] 30.0 pg Normal 27.0-33.0 [facility] Comment on above: Performed By: #### L [id number] ####[facility] ([facility])[address] [place] [address] MCV (RBC) [Entitic vol] 100.4 fL High 82.0-98.0 [facility] Comment on above: Performed By: #### L [id number] ####[facility] ([facility])[address] [place] [address] PLATELETS (10*3/UL) IN BLOOD AUTOMATED COUNT 229 10*3/uL Normal 150-400 [facility] Comment on above: Performed By: #### L [id number] ####[facility] ([facility])[address] [place] [address] RBC (Bld) [#/Vol] 2.27 10*6/uL Low 3.80-5.00 [facility] Comment on above: Performed By: #### L [id number] ####[facility] ([facility])[address] [place] [address] WBC (Bld) [#/Vol] 8.76 10*3/uL Normal 4.00-10.60 [facility] Comment on above: Performed By: #### L [id number] ####[facility] ([facility])[address] [place] [address] Erythrocyte distribution width (RBC) [Ratio] 13.8 % Normal 11.5-15.0 [facility] Comment on above: Performed By: #### L [id number] ####[facility] ([facility])[address] [place] [address] ERYTHROCYTE MEAN CORPUSCULAR HEMOGLOBIN CONCENTRATION (G/DL) BY AUTOMATED 32.5 g/dL Normal 32.0-35.0 [facility] Comment on above: Performed By: #### L [id number] ####[facility] ([facility])[address] [place] [address] Hematocrit (Bld) [Volume fraction] 25.2 % Low 36.0-48.0 [facility] Comment on above: Performed By: #### L [id number] ####[facility] ([facility])[address] [place] [address] Hemoglobin (Bld) [Mass/Vol] 8.2 g/dL Low 12.0-15.0 [facility] Comment on above: Performed By: #### L [id number] ####[facility] ([facility])[address] [place] [address] MCH (RBC) [Entitic mass] 30.5 pg Normal 27.0-33.0 [facility] Comment on above: Performed By: #### L [id number] ####[facility] ([facility])[address] [place] [address] MCV (RBC) [Entitic vol] 93.7 fL Normal 82.0-98.0 [facility] Comment on above: Performed By: #### L [id number] ####[facility] ([facility])[address] [place] [address] PLATELETS (10*3/UL) IN BLOOD AUTOMATED COUNT 268 10*3/uL Normal 150-400 [facility] Comment on above: Performed By: #### L [id number] ####[facility] ([facility])[address] [place] [address] RBC (Bld) [#/Vol] 2.69 10*6/uL Low 3.80-5.00 [facility] Comment on above: Performed By: #### L [id number] ####[facility] ([facility])[address] [place] [address] WBC (Bld) [#/Vol] 9.30 10*3/uL Normal 4.00-10.60 [facility] Comment on above: Performed By: #### L [id number] ####[facility] ([facility])[address] [place] [address] MAGNESIUMon 04-23-2024 Magnesium [Mass/Vol] 1.4 mg/dL Low 1.9-2.7 [facility] Comment on above: Performed By: #### L [id number] ####[facility] ([facility])[address] [place] [address] NURSNOTEon 04-23-2024 NURSNOTE Normal [facility] PHOSPHORUSon 04-23-2024 Magnesium [Mass/Vol] 3.2 mg/dL Normal 2.5-5.0 [facility] Comment on above: Performed By: #### L [id number] ####[facility] ([facility])[address] [place] [address] POCT GLUCOSE METER UNSOLICIT ED RESULTSon 04-23-2024 Glucose [Mass/Vol] 301 mg/dL High 70-105 [facility] Comment on above: Order Comment: Waive d Testing in the ED is performed under the ED CLIA certificate #[id number]. Result Comment: nsc eub Performed By: #### L [id number] ####[facility] ([facility])[address] [place] [address] Glucose [Mass/Vol] 138 mg/dL High 70-105 [facility] Comment on above: Order Comment: Waive d Testing in the ED is performed under the ED CLIA certificate #[id number]. Result Comment: [facility] eub Performed By: #### L [id number] ####[facility] ([facility])[address] [place] [address] Glucose [Mass/Vol] 156 mg/dL High 70-105 [facility] Comment on above: Order Comment: Waive d Testing in the ED is performed under the ED CLIA certificate #[id number]. Result Comment: [email or web address] Performed By: #### L [id number] ####[facility] ([facility])[address] [place] [address] Glucose [Mass/Vol] 198 mg/dL High 70-105 [facility] Comment on above: Order Comment: Waive d Testing in the ED is performed under the ED CLIA certificate #[id number]. Result Comment: ulysses [email or web address] Performed By: #### L [id number] ####[facility] ([facility])[address] [place] [address] Glucose [Mass/Vol] 252 mg/dL High 70-105 [facility] Comment on above: Order Comment: Waive d Testing in the ED is performed under the ED CLIA certificate #[id number]. Result Comment: ulysses [email or web address] Performed By: #### L [id number] ####[facility] ([facility])[address] [place] [address] Glucose [Mass/Vol] 182 mg/dL High 70-105 [facility] Comment on above: Order Comment: Waive d Testing in the ED is performed under the ED CLIA certificate #[id number]. Result Comment: alaf oun3 Performed By: #### L [id number] ####[facility] ([facility])[address] [place] [address] Glucose [Mass/Vol] 189 mg/dL High 70-105 [facility] Comment on above: Order Comment: Waive d Testing in the ED is performed under the ED CLIA certificate #[id number]. Result Comment: alaf oun3 Performed By: #### L [id number] ####[facility] ([facility])[address] [place] [address] [id number] 04-22-2024 [id number] Normal [facility] ANESon 04-22-2024 ANES Normal [facility] ANES Normal [facility] Anesthesiaon 04-22-2024 Anesthesia [id number] Monica Acosta 1960 F Date Provider Department [place] 04/22/2024 BrentCHRISTIANE MERINO. [facility] No family history on file Normal [facility] BASIC METABOLIC PANELon 04-05 Anion gap [Moles/Vol] 14 mmol/L Normal 7-20 [facility] Comment on above: Performed By: #### L [id number] ####[facility] ([facility])[address] [place] [address] Calcium [Mass/Vol] 8.6 mg/dL Normal 8.6-10.3 [facility] Comment on above: Performed By: #### L [id number] ####[facility] ([facility])[address] [place] [address] Chloride [Moles/Vol] 102 mmol/L Normal 98-107 [facility] Comment on above: Performed By: #### L [id number] ####[facility] ([facility])[address] [place] [address] CO2 [Moles/Vol] 23 mmol/L Normal 21-31 [facility] Comment on above: Performed By: #### L [id number] ####[facility] ([facility])[address] [place] [address] Creatinine [Mass/Vol] 0.81 mg/dL Normal 0.60-1.20 [facility] Comment on above: Performed By: #### L [id number] ####[facility] ([facility])[address] [place] [address] GLOMERULAR FILTRATION RATE ML/MIN/1.73 SQ M.PREDICTED 81.0 mL/min/1.73m*2 Normal >60.0 [facility] Comment on above: Result Comment: [facility]???s estimated glomerular filtration rate (eGFR) will no [...] of individuals. Performed By: #### L [id number] ####[facility] ([facility])[address] [place] [address] Glucose [Mass/Vol] 342 mg/dL High 70-100 [facility] Comment on above: Performed By: #### L [id number] ####[facility] ([facility])[address] [place] [address] Potassium [Moles/Vol] 4.5 mmol/L Normal 3.5-5.1 [facility] Comment on above: Performed By: #### L [id number] ####[facility] ([facility])[address] [place] [address] Sodium [Moles/Vol] 134 mmol/L Low 136-145 [facility] Comment on above: Performed By: #### L [id number] ####[facility] ([facility])[address] [place] [address] Urea nitrogen [Mass/Vol] 28 mg/dL High 7-25 [facility] Comment on above: Performed By: #### L [id number] ####[facility] ([facility])[address] [place] [address] UREA NITROGEN/CREATININE (MASS RATIO) IN SER/PLAS 34.6 Normal [facility] Comment on above: Performed By: #### L [id number] ####[facility] ([facility])[address] [place] [address] CBC WITH AUTO DIFFERENTIALon 04-22-2024 Basophils (Bld) [#/Vol] 0.06 10*3/uL Normal 0.00-0.20 [facility] Comment on above: Performed By: #### L [id number] ####[facility] ([facility])[address] [place] [address] Basophils/100 WBC (Bld) 0.5 % Normal 0.0-1.0 [facility] Comment on above: Performed By: #### L [id number] ####[facility] ([facility])[address] [place] [address] Eosinophils (Bld) [#/Vol] 0.22 10*3/uL Normal 0.00-0.50 [facility] Comment on above: Performed By: #### L [id number] ####[facility] ([facility])[address] [place] [address] Eosinophils/100 WBC (Bld) 1.9 % Normal 0.0-6.0 [facility] Comment on above: Performed By: #### L [id number] ####[facility] ([facility])[address] [place] [address] Erythrocyte distribution width (RBC) [Ratio] 13.5 % Normal 11.5-15.0 [facility] Comment on above: Performed By: #### L [id number] ####[facility] ([facility])[address] [place] [address] ERYTHROCYTE MEAN CORPUSCULAR HEMOGLOBIN CONCENTRATION (G/DL) BY AUTOMATED 31.4 g/dL Low 32.0-35.0 [facility] Comment on above: Performed By: #### L [id number] ####[facility] ([facility])[address] [place] [address] Hematocrit (Bld) [Volume fraction] 36.0 % Normal 36.0-48.0 [facility] Comment on above: Performed By: #### L [id number] ####[facility] ([facility])[address] [place] [address] Hemoglobin (Bld) [Mass/Vol] 11.3 g/dL Low 12.0-15.0 [facility] Comment on above: Performed By: #### L [id number] ####[facility] ([facility])[address] [place] [address] Immature granulocytes (Bld) [#/Vol] 0.05 10*3/uL Normal 0.00-0.20 [facility] Comment on above: Performed By: #### L [id number] ####[facility] ([facility])[address] [place] [address] Immature granulocytes/100 WBC (Bld) 0.4 % Normal 0.0-1.0 [facility] Comment on above: Performed By: #### L [id number] ####[facility] ([facility])[address] [place] [address] Lymphocytes (Bld) [#/Vol] 0.93 10*3/uL Low 1.20-4.00 [facility] Comment on above: Performed By: #### L [id number] ####[facility] ([facility])[address] [place] [address] Lymphocytes/100 WBC (Bld) 8.1 % Low 20.0-45.0 [facility] Comment on above: Performed By: #### L [id number] ####[facility] ([facility])[address] [place] [address] MCH (RBC) [Entitic mass] 30.3 pg Normal 27.0-33.0 [facility] Comment on above: Performed By: #### L [id number] ####[facility] ([facility])[address] [place] [address] MCV (RBC) [Entitic vol] 96.5 fL Normal 82.0-98.0 [facility] Comment on above: Performed By: #### L [id number] ####[facility] ([facility])[address] [place] [address] Monocytes (Bld) [#/Vol] 0.89 10*3/uL Normal 0.10-1.00 [facility] Comment on above: Performed By: #### L [id number] ####[facility] ([facility])[address] [place] [address] Monocytes/100 WBC (Bld) 7.7 % Normal 5.0-12.0 [facility] Comment on above: Performed By: #### L [id number] ####[facility] ([facility])[address] [place] [address] Neutrophils (Bld) [#/Vol] 9.38 10*3/uL High 1.60-7.60 [facility] Comment on above: Performed By: #### L [id number] ####[facility] ([facility])[address] [place] [address] Neutrophils/100 WBC (Bld) 81.4 % High 40.0-72.0 [facility] Comment on above: Performed By: #### L [id number] ####[facility] ([facility])[address] [place] [address] NRBC (PER 100 WBCS) BY AUTOMATED COUNT 0.0 % Normal 0 [facility] Comment on above: Performed By: #### L [id number] ####[facility] ([facility])[address] [place] [address] PLATELETS (10*3/UL) IN BLOOD AUTOMATED COUNT 325 10*3/uL Normal 150-400 [facility] Comment on above: Performed By: #### L [id number] ####[facility] ([facility])[address] [place] [address] RBC (Bld) [#/Vol] 3.73 10*6/uL Low 3.80-5.00 [facility] Comment on above: Performed By: #### L [id number] ####[facility] ([facility])[address] [place] [address] WBC (Bld) [#/Vol] 11.53 10*3/uL High 4.00-10.60 [facility] Comment on above: Performed By: #### L [id number] ####[facility] ([facility])[address] [place] [address] EDPROVon 04-22-2024 EDPROV Invalid Interpretation Code [facility] HPon 04-22-2024 HP H&P reviewed. The patient was examined and there are no changes to the H&P. Normal [facility] MAGNESIUMon 04-22-2024 Magnesium [Mass/Vol] 1.5 mg/dL Low 1.9-2.7 [facility] Comment on above: Performed By: #### L [id number] ####[facility] ([facility])[address] [place] [address] MRSA/MSSA DNA NASALon 2023 MRSA DNA Negative Normal Negative [facility] Comment on above: Order Comment: Testi ng [...] preclude nasal colonization. Performed By: #### L [id number] ####[facility] ([facility])[address] [place] [address] MSSA DNA Negative Normal Negative [facility] Comment on above: Order Comment: Testi ng [...] preclude nasal colonization. Performed By: #### L [id number] ####[facility] ([facility])[address] [place] [address] NURSNOTEon 04-22-2024 NURSNOTE This senior copywriter attempte d to get information about the insulin pump that is placed, patient is unable to give or sign the agreement at this time. Will try again at a later time. Normal [facility] NURSNOTE Normal [facility] NURSNOTE Dressing: Xeroflo, fluffs, kerlix, carlos wrap to bilateral legs [facility] OPNOTEon 04-22-2024 OPNOTE Normal [facility] PHOSPHORUSon 04-22-2024 Magnesium [Mass/Vol] 4.2 mg/dL Normal 2.5-5.0 [facility] Comment on above: Performed By: #### L [id number] ####[facility] ([facility])[address] [place] [address] POCT GLUCOSE METER UNSOLICIT ED RESULTSon 04-22-2024 Glucose [Mass/Vol] 187 mg/dL High 70-105 [facility] Comment on above: Order Comment: Waive d Testing in the ED is performed under the ED CLIA certificate #[id number]. Result Comment: atha [email or web address] Performed By: #### L [id number] ####[facility] ([facility])[address] [place] [address] Glucose [Mass/Vol] 256 mg/dL High 70-105 [facility] Comment on above: Order Comment: Waive d Testing in the ED is performed under the ED CLIA certificate #[id number]. Result Comment: [email or web address] Performed By: #### L [id number] ####[facility] ([facility])[address] [place] [address] Glucose [Mass/Vol] 247 mg/dL High 70-105 [facility] Comment on above: Order Comment: Waive d Testing in the ED is performed under the ED CLIA certificate #[id number]. Result Comment: [email or web address] Performed By: #### L [id number] ####[facility] ([facility])[address] [place] [address] Glucose [Mass/Vol] 213 mg/dL High 70-105 [facility] Comment on above: Order Comment: Waive d Testing in the ED is performed under the ED CLIA certificate #[id number]. Result Comment: [email or web address] [email or web address] Performed By: #### L [id number] ####[facility] ([facility])[address] [place] [address] Glucose [Mass/Vol] 247 mg/dL High 70-105 [facility] Comment on above: Order Comment: Waive d Testing in the ED is performed under the ED CLIA certificate #[id number]. Result Comment: sanket hl Performed By: #### L [id number] ####[facility] ([facility])[address] [place] [address] Glucose [Mass/Vol] 316 mg/dL High 70-105 [facility] Comment on above: Order Comment: Waive d Testing in the ED is performed under the ED CLIA certificate #[id number]. Result Comment: czyd orc Performed By: #### L [id number] ####[facility] ([facility])[address] [place] [address] Glucose [Mass/Vol] 343 mg/dL High 70-105 [facility] Comment on above: Order Comment: Waive d Testing in the ED is performed under the ED CLIA certificate #[id number]. Result Comment: czyd orc Performed By: #### L [id number] ####[facility] ([facility])[address] [place] [address] Glucose [Mass/Vol] 354 mg/dL High 70-105 [facility] Comment on above: Order Comment: Waive d Testing in the ED is performed under the ED CLIA certificate #[id number]. Result Comment: [email or web address] Performed By: #### L [id number] ####[facility] ([facility])[address] [place] [address] Glucose [Mass/Vol] 358 mg/dL High 70-105 [facility] Comment on above: Order Comment: Waive d Testing in the ED is performed under the ED CLIA certificate #[id number]. Result Comment: [email or web address] Performed By: #### L [id number] ####[facility] ([facility])[address] [place] [address] TOXICOLOGY PANEL URINEon AMPHETAMINE+METHAMPHE TAMINE SCREEN (PRESENCE) IN URINE Negative Normal Negative [facility] Comment on above: Performed By: #### L [id number] ####[facility] ([facility])[address] [place] [address] BARBITURATES PRESENCE IN URINE BY SCREEN METHOD Negative Normal Negative [facility] Comment on above: Performed By: #### L [id number] ####[facility] ([facility])[address] [place] [address] Benzodiazepines Ql (U) Positive Abnormal Negative [facility] Comment on above: Performed By: #### L [id number] ####[facility] ([facility])[address] [place] [address] CANNABINOID (PRESENCE) IN URINE BY SCREEN METHOD Negative Normal Negative [facility] Comment on above: Performed By: #### L [id number] ####[facility] ([facility])[address] [place] [address] Cocaine Ql (U) Negative Normal Negative [facility] Comment on above: Performed By: #### L [id number] ####[facility] ([facility])[address] [place] [address] METHADONE (PRESENCE) IN URINE BY SCREEN METHOD Negative Normal Negative [facility] Comment on above: Performed By: #### L [id number] ####[facility] ([facility])[address] [place] [address] OPIATES (PRESENCE) IN URINE BY SCREEN METHOD Positive Abnormal Negative [facility] Comment on above: Performed By: #### L [id number] ####[facility] ([facility])[address] [place] [address] PHENCYCLIDINE PRESENCE IN URINE BY SCREEN METHOD Negative Normal Negative [facility] Comment on above: Performed By: #### L [id number] ####[facility] ([facility])[address] [place] [address] Propoxyphene Screen Ql (U) Negative Normal Negative [facility] Comment on above: Performed By: #### L [id number] ####[facility] ([facility])[address] [place] [address] TRICYCLIC ANTIDEPRESSANTS (PRESENCE) IN URINE Positive Abnormal Negative [facility] Comment on above: Performed By: #### L [id number] ####[facility] ([facility])[address] [place] [address] URINALYSIS WITH MICROSCOPICo n 04-22-2024 BILIRUBIN, TOTAL PRESENCE IN URINE Negative Normal Negative [facility] Comment on above: Performed By: #### L [id number] ####[facility] ([facility])[address] [place] [address] Clarity (U) Clear Normal Clear [facility] Comment on above: Performed By: #### L [id number] ####[facility] ([facility])[address] [place] [address] Color (U) Yellow Normal Yellow [facility] Comment on above: Performed By: #### L [id number] ####[facility] ([facility])[address] [place] [address] Glucose (U) [Mass/Vol] 50 mg/dL Abnormal Negative [facility] Comment on above: Performed By: #### L [id number] ####[facility] ([facility])[address] [place] [address] HEMOGLOBIN PRESENCE IN URINE Negative Normal Negative [facility] Comment on above: Performed By: #### L [id number] ####[facility] ([facility])[address] [place] [address] Ketones Ql (U) Negative Normal Negative [facility] Comment on above: Performed By: #### L [id number] ####[facility] ([facility])[address] [place] [address] LEUKOCYTE ESTERASE PRESENCE IN URINE BY TEST STRIP Negative Normal Negative [facility] Comment on above: Performed By: #### L [id number] ####[facility] ([facility])[address] [place] [address] MUCUS (#/HPF) IN URINE SEDIMENT Occasional Normal None Seen, Occasional, Few [facility] Comment on above: Performed By: #### L [id number] ####[facility] ([facility])[address] [place] [address] NITRITE PRESENCE IN URINE Negative Normal Negative [facility] Comment on above: Performed By: #### L [id number] ####[facility] ([facility])[address] [place] [address] pH (U) 5.0 [pH] Normal 5.0-8.0 [facility] Comment on above: Performed By: #### L [id number] ####[facility] ([facility])[address] [place] [address] Protein (U) [Mass/Vol] Negative Normal Negative [facility] Comment on above: Performed By: #### L [id number] ####[facility] ([facility])[address] [place] [address] RBC (#/HPF) IN URINE SEDIMENT None Seen Normal None Seen [facility] Comment on above: Performed By: #### L [id number] ####[facility] ([facility])[address] [place] [address] Specific gravity (U) [Rel density] 1.048 High 1.015-1.020 [facility] Comment on above: Performed By: #### L [id number] ####[facility] ([facility])[address] [place] [address] SQUAMOUS EPITHELIAL CELLS (#/HPF) IN URINE SEDIMENT Many Abnormal None Seen, Occasional [facility] Comment on above: Performed By: #### L [id number] ####[facility] ([facility])[address] [place] [address] WBC (LEUKOCYTE) (#/HPF) IN URINE SEDIMENT None Seen Normal None Seen [facility] Comment on above: Performed By: #### L [id number] ####[facility] ([facility])[address] [place] [address] APTTon 04-21-2024 ACTIVATED PARTIAL THROMBOPLASTIN TIME IN PPP BY COAGULATION ASSAY 22.9 Seconds Low 25.0-35.0 [facility] Comment on above: Result Comment: Clin ical significance of the APTT is questionable in the presence of heparin. Performed By: #### L [id number] ####[facility] ([facility])[address] [place] [address] BASIC METABOLIC PANELon 04-05 Anion gap [Moles/Vol] 8 mmol/L Normal 7-20 [facility] Comment on above: Performed By: #### L [id number] ####[facility] ([facility])[address] [place] [address] Calcium [Mass/Vol] 9.1 mg/dL Normal 8.6-10.3 [facility] Comment on above: Performed By: #### L [id number] ####[facility] ([facility])[address] [place] [address] Chloride [Moles/Vol] 105 mmol/L Normal 98-107 [facility] Comment on above: Performed By: #### L [id number] ####[facility] ([facility]AK[facility])[address] [place] [address] CO2 [Moles/Vol] 27 mmol/L Normal 21-31 [facility] Comment on above: Performed By: #### L [id number] ####[facility] ([facility])[address] [place] [address] Creatinine [Mass/Vol] 0.77 mg/dL Normal 0.60-1.20 [facility] Comment on above: Performed By: #### L [id number] ####[facility] ([facility])[address] [place] [address] GLOMERULAR FILTRATION RATE ML/MIN/1.73 SQ M.PREDICTED 86.1 mL/min/1.73m*2 Normal >60.0 [facility] Comment on above: Result Comment: [facility]???s estimated glomerular filtration rate (eGFR) will no [...] of individuals. Performed By: #### L [id number] ####[facility] ([facility])[address] [place] [address] Glucose [Mass/Vol] 158 mg/dL High 70-100 [facility] Comment on above: Performed By: #### L [id number] ####[facility] ([facility])[address] [place] [address] Potassium [Moles/Vol] 4.1 mmol/L Normal 3.5-5.1 [facility] Comment on above: Performed By: #### L [id number] ####[facility] ([facility])[address] [place] [address] Sodium [Moles/Vol] 136 mmol/L Normal 136-145 [facility] Comment on above: Performed By: #### L [id number] ####[facility] ([facility])[address] [place] [address] Urea nitrogen [Mass/Vol] 31 mg/dL High 7-25 [facility] Comment on above: Performed By: #### L [id number] ####[facility] ([facility])[address] [place] [address] UREA NITROGEN/CREATININE (MASS RATIO) IN SER/PLAS 40.3 Normal [facility] Comment on above: Performed By: #### L [id number] ####[facility] ([facility])[address] [place] [address] CBC WITH AUTO DIFFERENTIALon 04-21-2024 Basophils (Bld) [#/Vol] 0.03 10*3/uL Normal 0.00-0.20 [facility] Comment on above: Performed By: #### L [id number] ####[facility] ([facility])[address] [place] [address] Basophils/100 WBC (Bld) 0.2 % Normal 0.0-1.0 [facility] Comment on above: Performed By: #### L [id number] ####[facility] ([facility])[address] [place] [address] Eosinophils (Bld) [#/Vol] 0.23 10*3/uL Normal 0.00-0.50 [facility] Comment on above: Performed By: #### L [id number] ####[facility] ([facility])[address] [place] [address] Eosinophils/100 WBC (Bld) 1.8 % Normal 0.0-6.0 [facility] Comment on above: Performed By: #### L [id number] ####[facility] ([facility])[address] [place] [address] Erythrocyte distribution width (RBC) [Ratio] 13.3 % Normal 11.5-15.0 [facility] Comment on above: Performed By: #### L [id number] ####[facility] ([facility])[address] [place] [address] ERYTHROCYTE MEAN CORPUSCULAR HEMOGLOBIN CONCENTRATION (G/DL) BY AUTOMATED 32.7 g/dL Normal 32.0-35.0 [facility] Comment on above: Performed By: #### L [id number] ####[facility] ([facility])[address] [place] [address] Hematocrit (Bld) [Volume fraction] 35.5 % Low 36.0-48.0 [facility] Comment on above: Performed By: #### L [id number] ####[facility] ([facility])[address] [place] [address] Hemoglobin (Bld) [Mass/Vol] 11.6 g/dL Low 12.0-15.0 [facility] Comment on above: Performed By: #### L [id number] ####[facility] ([facility])[address] [place] [address] Immature granulocytes (Bld) [#/Vol] 0.04 10*3/uL Normal 0.00-0.20 [facility] Comment on above: Performed By: #### L [id number] ####[facility] ([facility])[address] [place] [address] Immature granulocytes/100 WBC (Bld) 0.3 % Normal 0.0-1.0 [facility] Comment on above: Performed By: #### L [id number] ####[facility] ([facility])[address] [place] [address] Lymphocytes (Bld) [#/Vol] 1.65 10*3/uL Normal 1.20-4.00 [facility] Comment on above: Performed By: #### L [id number] ####[facility] ([facility])[address] [place] [address] Lymphocytes/100 WBC (Bld) 12.6 % Low 20.0-45.0 [facility] Comment on above: Performed By: #### L [id number] ####[facility] ([facility])[address] [place] [address] MCH (RBC) [Entitic mass] 30.0 pg Normal 27.0-33.0 [facility] Comment on above: Performed By: #### L [id number] ####[facility] ([facility])[address] [place] [address] MCV (RBC) [Entitic vol] 91.7 fL Normal 82.0-98.0 [facility] Comment on above: Performed By: #### L [id number] ####[facility] ([facility]ER)[address] [place] [address] Monocytes (Bld) [#/Vol] 1.02 10*3/uL High 0.10-1.00 [facility] Comment on above: Performed By: #### L [id number] ####[facility] ([facility])[address] [place] [address] Monocytes/100 WBC (Bld) 7.8 % Normal 5.0-12.0 [facility] Comment on above: Performed By: #### L [id number] ####[facility] ([facility])[address] [place], [place] [address] Neutrophils (Bld) [#/Vol] 10.12 10*3/uL High 1.60-7.60 [facility] Comment on above: Performed By: #### L [id number] ####[facility] ([facility])[address] [place] [address] Neutrophils/100 WBC (Bld) 77.3 % High 40.0-72.0 [facility] Comment on above: Performed By: #### L [id number] ####[facility] ([facility])[address] [place] [place] [address] NRBC (PER 100 WBCS) BY AUTOMATED COUNT 0.0 % Normal 0 [facility] Comment on above: Performed By: #### L [id number] ####[facility] ([facility])[address] [place] [address] PLATELETS (10*3/UL) IN BLOOD AUTOMATED COUNT 334 10*3/uL Normal 150-400 [facility] Comment on above: Performed By: #### L [id number] ####[facility] ([facility])[address] [place], [place] [address] RBC (Bld) [#/Vol] 3.87 10*6/uL Normal 3.80-5.00 [facility] Comment on above: Performed By: #### L [id number] ####[facility] ([facility])[address] [place] [address] WBC (Bld) [#/Vol] 13.09 10*3/uL High 4.00-10.60 [facility] Comment on above: Performed By: #### L [id number] ####[facility] ([facility])[address] [place] [address] CONSULTon 04-21-2024 CONSULT Normal [facility] CT CERVICAL SPINE WO IV CONT RASTon 04-21-2024 CT CERVICAL SPINE WO IV CONTRAST Normal [facility] CT CHEST W IV CONTRASTon CT CHEST W IV CONTRAST Normal [facility] CT HEAD WO IV CONTRASTon CT HEAD WO IV CONTRAST Normal [facility] CTA AORTA AND BILATERAL ILIO FEMORAL RUNOFF W IV CONTRASTon 04-21-2024 CTA AORTA AND BILATERAL ILIOFEMORAL RUNOFF W IV CONTRAST Normal [facility] EDNURSon 04-21-2024 EDNURS Normal [facility] EDNURS Transfer from Tye Normal [facility] EDPROVon 04-21-2024 EDPROV Normal [facility] ETHANOLon 04-21-2024 ETHANOL (MG/DL) IN SER/PLAS <10 Normal [facility] Comment on above: Performed By: #### L [id number] ####[facility] ([facility])[address] [place] [address] ETHANOL CALCULATED (%) [facility] Comment on above: Performed By: #### L [id number] ####[facility] ([facility])[address] [place] [address] HEPATIC FUNCTION PANELon Albumin [Mass/Vol] 3.5 g/dL Normal 3.5-5.7 [facility] Comment on above: Performed By: #### L [id number] ####[facility] ([facility])[address] [place] [address] ALP [Catalytic activity/Vol] 240 U/L High 34-104 [facility] Comment on above: Performed By: #### L [id number] ####[facility] ([facility])[address] [place] [address] ALT [Catalytic activity/Vol] 72 U/L High 7-52 [facility] Comment on above: Performed By: #### L [id number] ####[facility] ([facility])[address] [place] [address] AST [Catalytic activity/Vol] 131 U/L High 13-39 [facility] Comment on above: Performed By: #### L [id number] ####[facility] ([facility])[address] [place] [address] Bilirubin [Mass/Vol] 0.3 mg/dL Normal 0.3-1.0 [facility] Comment on above: Performed By: #### L [id number] ####[facility] ([facility])[address] [place] [address] Magnesium [Mass/Vol] 0.1 mg/dL Normal 0-0.2 [facility] Comment on above: Performed By: #### L [id number] ####[facility] ([facility])[address] [place] [address] Protein [Mass/Vol] 6.8 g/dL Normal 6.0-8.3 [facility] Comment on above: Performed By: #### L [id number] ####[facility] ([facility])[address] [place] [address] HPon 04-21-2024 HP Normal [facility] HP Normal [facility] LACTIC ACID, PLASMAon 2023 LACTATE (MMOL/L) IN SER/PLAS 0.9 mmol/L Normal 0.5-2.2 [facility] Comment on above: Performed By: #### L [id number] ####[facility] ([facility])[address] [place] [address] LIPASEon 04-21-2024 LIPASE (U/L) IN SER/PLAS 8 U/L Low 11-82 [facility] Comment on above: Performed By: #### L [id number] ####[facility] ([employer])[address] [place] [address] PROTIME-INRon 04-21-2024 INR IN PPP BY COAGULATION ASSAY 0.99 Normal 0.90-1.10 [facility] Comment on above: Result Comment: ACCC P [...] CHEST 1995;108:231S-246S. Performed By: #### L [id number] ####[facility] ([employer])[address] [place] [address] PROTHROMBIN TIME (PT) IN PPP BY COAGULATION ASSAY 13.1 Seconds Normal 12.3-14.8 [facility] Comment on above: Performed By: #### L [id number] ####[facility] ([employer])[address] [place] [address] TROPONIN Ion 04-21-2024 Troponin I.cardiac [Mass/Vol] 0.01 ng/mL Normal 0.00-0.04 [facility] Comment on above: Performed By: #### L [id number] ####[facility] ([employer])[address] [place] [address] TYPE AND SCREENon 04-21-2024 AB SCREEN Negative Normal [facility] Comment on above: Performed By: #### L [id number] ####[facility], ABO group Nom (Bld) A [facility] Comment on above: Performed By: #### L [id number] ####[facility], RH TYPE IN BLOOD Positive Normal [facility] Comment on above: Performed By: #### L [id number] ####[facility], VITAMIN D 25 HYDROXYon 04-21 CALCIDIOL (25 [place] VITAMIN D3) (NG/ML) IN SER/PLAS 34.8 ng/mL Normal 30.0-80.0 [facility] Comment on above: Result Comment: >80. 0 Toxicity possible Performed By: #### L [id number] ####[facility] ([facility]AKER)[address] [place] [address] BASIC METABOLIC PANLon 04-13 Anion gap [Moles/Vol] 10 mmol/L Normal 5-15 [facility] Comment on above: Performed By: #### B MP #### [facility] ([id number]) [address], [address] [place] [address] Calcium [Mass/Vol] 9.9 mg/dL Normal 8.5-10.5 [facility] Comment on above: Performed By: #### B MP #### [facility] ([id number]) [address], [address] [place] [address] Chloride [Moles/Vol] 100 mmol/L Normal 98-109 [facility] Comment on above: Performed By: #### B MP #### [facility] ([id number]) [address], [address] [place] [address] CO2 [Moles/Vol] 27 mmol/L Normal 22-32 [facility] Comment on above: Performed By: #### B MP #### [facility] ([id number]) [address], [address] [place] [address] Creatinine [Mass/Vol] 0.92 mg/dL Normal 0.40-1.00 [facility] Comment on above: Result Comment: METH OD TRACEABLE TO IDMS STANDARD Performed By: #### B MP #### [facility] ([id number]) [address], [address] [place] [address] GFR/1.73 sq M.predicted among non-blacks MDRD (S/P/Bld) [Vol rate/Area] 70 mL/min/{1.73_m2} Normal >59 [facility] Comment on above: Result Comment: Reported eGFR is based on the CKD-EPI 2020 equation that does not use a race coefficient. Performed By: #### B MP #### [facility] ([id number]) [address], [address] [place] [address] Glucose [Mass/Vol] 151 mg/dL High 65-99 [facility] Comment on above: Performed By: #### B MP #### [facility] ([id number]) [address], [address] [place] [address] Potassium [Moles/Vol] 4.5 mmol/L Normal 3.5-5.0 [facility] Comment on above: Performed By: #### B MP #### [facility] ([id number]) [address], [address] [place] [address] Sodium [Moles/Vol] 137 mmol/L Normal 134-146 [facility] Comment on above: Performed By: #### B MP #### [facility] ([id number]) [address], [address] [place] [address] Urea nitrogen [Mass/Vol] 28 mg/dL High 5-27 [facility] Comment on above: Performed By: #### B MP #### [facility] ([id number]) [address], [address] [place] [address] DRUG SCREEN, URINEon 07-23-2 024 AMPHETAMINE/METHAMP Negative Normal [facility] [place] Comment on above: Result Comment: AMPH /METH screening cut off = 1000 ng/mL Performed By: #### Jero EDCKER FINESSEDRAGAN #### [facility] ([id number]) [address], [address] [place] [address] BARBITURATES Negative Normal NEG [facility] Comment on above: Result Comment: Juana iturates screening cut off value = 200 ng/mL Performed By: #### Jero DECKER FINESSEDRAGAN #### [facility] ([id number]) [address], [address] [place] [address] BENZODIAZEPINES Negative Normal NEG [facility] Comment on above: Result Comment: Wade odiazepines screening cut off value = 200 ng/mL Performed By: #### Jero DECKER FINESSEDRAGAN #### [facility] ([id number]) [address], [address] [place] [address] CANNABINOIDS Negative Normal NEG [facility] Comment on above: Result Comment: Venus abinoids/THC screening cut off value = 50 ng/mL Performed By: #### SELENA STINSON #### [facility] ([id number]) [address], [address] [place] [address] COCAINE METABOLITE Negative Normal NEG [facility] Comment on above: Result Comment: Coca ine screening cut off value = 300 ng/mL Performed By: #### Jero DECKER FINESSEDRAGAN #### [facility] ([id number]) [address], [address] [place] [address] ECSTASY Negative Normal NEG [facility] Comment on above: Result Comment: Ecst asy screening cut off value = 500 ng/mL This report is intended for use in clinical monitoring or management of patients. Performed By: #### SELENA STINSON #### [facility] ([id number]) [address], [address] [place] [address] METHADONE Negative Normal NEG [facility] Comment on above: Result Comment: Meth adone screening cut off value = 300 ng/mL. Performed By: #### SELENA STINSON #### [facility] ([id number]) [address], [address] [place] [address] OPIATES Negative Normal NEG [facility] Comment on above: Result Comment: Opia rafal screening cut off value = 300 ng/mL NOTE: This test is used for the detection of codeine, hydrocodone (>1000 ng/mL), morphine and hydromorphone (>900 ng/mL) in urine. Performed By: #### SELENA STINSON #### [facility] ([id number]) [address] [facility] [place] [address] OXYCODONE Negative Normal NEG [facility] Comment on above: Result Comment: Oxyc odone screening cut off value = 300 ng/mL NOTE: This test is used for the detection of oxycodone and oxymorphone in urine. Performed By: #### SELENA STINSON #### [facility] ([id number]) [address], [address] [place] [address] PHENCYCLIDINE Negative Normal NEG [facility] Comment on above: Result Comment: Phen cyclidine screening cut off value = 25 ng/mL Performed By: #### SELENA STINSON #### [facility] ([id number]) [address], [address] [place] [address] MICROALBUMIN - ALBUMIN:CREAT ININE URINE RATIOon 03-27-2024 ALB/CREAT RATIO 37.7 mg/g creat High 0.0-30.0 [facility] Comment on above: Performed By: #### SELENA STINSON #### [facility] ([id number]) [address], [address] [place] [address] Albumin DL <= 20 mg/L (U) [Mass/Vol] 2.0 mg/dL High 0.0-1.9 [facility] Comment on above: Performed By: #### D SELENA DECKER #### [facility] ([id number]) [address], [address] [place] [address] URINE CREAT 53.06 mg/dL Normal [facility] Comment on above: Performed By: #### SELENA STINSON #### [facility] ([id number]) [address], [address] [place] [address] COMPLETE BLOOD COUNTon 03-26 Erythrocyte distribution width (RBC) [Ratio] 14.4 % Normal 11.5-15.0 [facility] Comment on above: Performed By: #### Sheila ALY, CMP #### [facility] ([id number]) [address], [address] [place] [address] Hematocrit (Bld) [Volume fraction] 40.1 % Normal 35-47 [facility] Comment on above: Performed By: #### Sheila ALY, CMP #### [facility] ([id number]) [address], [address] [place] [address] Hemoglobin (Bld) [Mass/Vol] 13.5 g/dL Normal 11.7-15.5 [facility] Comment on above: Performed By: #### C BC, CMP #### [facility] ([id number]) [address] [place] [address] MCH (RBC) [Entitic mass] 30.8 pg Normal 27-34 [facility] Comment on above: Performed By: #### C BC, CMP #### [facility] ([id number]) [address] [place] [address] MCHC (RBC) [Mass/Vol] 33.7 g/dL Normal 32-36 [facility] Comment on above: Performed By: #### C BC, CMP #### [facility] ([id number]) [address], [address] [place] [address] MCV (RBC) [Entitic vol] 91 fL Normal 80-100 [facility] Comment on above: Performed By: #### C SHEEBA, CMP #### [facility] ([id number]) [address], [address] [place] [address] Platelet mean volume (Bld) [Entitic vol] 9.8 fL Normal 7-12 [facility] Comment on above: Performed By: #### C SHEEBA, CMP #### [facility] ([id number]) [address], [facility] [address] [place] [address] Platelets (Bld) [#/Vol] 308 10*3/uL Normal 150-450 [facility] Comment on above: Performed By: #### C SHEEBA, CMP #### [facility] ([id number]) [address], [address] [place] [address] RBC COUNT 4.39 X10E12/L Normal 3.80-5.20 [facility] Comment on above: Performed By: #### Sheila ALY, CMP #### [facility] ([id number]) [address], [facility] [address] [place] [address] WBC (Bld) [#/Vol] 10.1 10*3/uL Normal 4.0-11.0 [place] Comment on above: Performed By: #### Sheila ALY, CMP #### [facility] ([id number]) [address], [address] [place] [address] COMPREHENSIVE METABOLIC PANE Neftali 03-26-2024 Albumin [Mass/Vol] 3.8 g/dL Normal 3.2-5.3 [facility] Comment on above: Performed By: #### C BC, CMP #### [facility] ([id number]) [address], [address] [place] [address] ALP [Catalytic activity/Vol] 133 U/L High 39-130 [facility] Comment on above: Performed By: #### C BC, CMP #### [facility] ([id number]) [address], [address] [place] [address] ALT [Catalytic activity/Vol] 22 U/L Normal 0-31 [facility] Comment on above: Performed By: #### C BC, CMP #### [facility] ([id number]) [address] [place] [address] Anion gap [Moles/Vol] 7 mmol/L Normal 5-15 [facility] Comment on above: Performed By: #### C SHEEBA, CMP #### [facility] ([id number]) [address] [place] [address] AST [Catalytic activity/Vol] 24 U/L Normal 0-41 [facility] Comment on above: Performed By: #### C SHEEBA, CMP #### [facility] ([id number]) [address] [place] [address] Bilirubin [Mass/Vol] 0.4 mg/dL Normal 0.3-1.2 [facility] Comment on above: Performed By: #### C SHEEBA, CMP #### [facility] ([id number]) [address] [place] [address] Calcium [Mass/Vol] 9.6 mg/dL Normal 8.5-10.5 [facility] Comment on above: Performed By: #### C SHEEBA, CMP #### [facility] ([id number]) [address], [address] [place] [address] Chloride [Moles/Vol] 102 mmol/L Normal 98-109 [facility] Comment on above: Performed By: #### C BC, CMP #### [facility] ([id number]) [address], [address] [place] [address] CO2 [Moles/Vol] 28 mmol/L Normal 22-32 [facility] Comment on above: Performed By: #### C SHEEBA, CMP #### [facility] ([id number]) [address] [address] [place] [address] Creatinine [Mass/Vol] 0.96 mg/dL Normal 0.40-1.00 [facility] Comment on above: Result Comment: METH OD TRACEABLE TO IDMS STANDARD Performed By: #### C SHEEBA, CMP #### [facility] ([id number]) [address] [place] [address] GFR/1.73 sq M.predicted among non-blacks MDRD (S/P/Bld) [Vol rate/Area] 66 mL/min/{1.73_m2} Normal >59 [facility] Comment on above: Result Comment: Reported eGFR is based on the CKD-EPI 2020 equation that does not use a race coefficient. Performed By: #### C SHEEBA, CMP #### [facility] ([id number]) [address] [address] [place] [address] Glucose [Mass/Vol] 179 mg/dL High 65-99 [facility] Comment on above: Performed By: #### Sheila ALY, CMP #### [facility] ([id number]) [address] [address] [place] [address] Potassium [Moles/Vol] 5.1 mmol/L High 3.5-5.0 [facility] Comment on above: Performed By: #### C SHEEBA, CMP #### [facility] ([id number]) [address] [address] [place] [address] Protein [Mass/Vol] 7.2 g/dL Normal 6.0-8.0 [facility] Comment on above: Performed By: #### Sheila ALY, CMP #### [facility] ([id number]) [address] [address] [place] [address] Sodium [Moles/Vol] 137 mmol/L Normal 134-146 [facility] Comment on above: Performed By: #### C BC, CMP #### [facility] ([id number]) [address] [facility] [place] [address] Urea nitrogen [Mass/Vol] 23 mg/dL Normal 5-27 [facility] Comment on above: Performed By: #### C BC, CMP #### [facility] ([id number]) [address] [facility], [address] [place] [address] Lipid 1996 panelon 4 Cholesterol [Mass/Vol] 106 mg/dL Low 150 - 200 mg/dL [facility] Cholesterol in HDL [Mass/Vol] 46 mg/dL 39 - PINF mg/dL [facility] Comment on above: HDL <40 mg/dL - High Risk HDL > or = 40mg/dL- Desirable HDL >60 mg/dL - Negative Risk Cholesterol in LDL [Mass/Vol] 38 mg/dL NINF - 130 mg/dL [facility] Comment on above: LDL <100 mg/dL - Desirable LDL >160 mg/dL - High Risk Cholesterol in VLDL [Mass/Vol] 22 mg/dL 0 - 30 mg/dL [facility] Cholesterol.total/Cho lesterol in HDL [Mass ratio] 2.3 {ratio} 1.0 - 5.0 [facility] Interpretation and review of laboratory results Abnormal [facility] Triglyceride [Mass/Vol] 110 mg/dL 27 - 150 mg/dL [facility] Cholesterol [Mass/Vol] 106 mg/dL Low 150-200 [facility] Comment on above: Performed By: #### 2 4331-1, 3016-3 #### [facility] ([id number]) [address], [address] [place] [address] Cholesterol in HDL [Mass/Vol] 46 mg/dL Normal >39 [facility] Comment on above: Result Comment: HDL <40 mg/dL - High Risk HDL > or = 40mg/dL- Desirable HDL >60 mg/dL - Negative Risk Performed By: #### 2 4331-1, 3015-3 #### [facility] ([id number]) [address], [facility] [address] [place] [address] Cholesterol in LDL [Mass/Vol] 38 mg/dL Normal <130 [facility] Comment on above: Result Comment: LDL <100 mg/dL - Desirable LDL >160 mg/dL - High Risk Performed By: #### 2 4331-1, 6-3 #### [facility] ([id number]) [address], [facility] [address] [place] [address] Cholesterol in VLDL [Mass/Vol] 22 mg/dL Normal 0-30 [facility] Comment on above: Performed By: #### 2 4331-1, 6-3 #### [facility] ([id number]) [address], [facility] [address] [place] [address] CHOLESTEROL:HDL 2.3 Normal 1.0-5.0 [facility] Comment on above: Performed By: #### 2 4331-1, 6-3 #### [facility] ([id number]) [address] [address] [place] [address] Triglyceride [Mass/Vol] 110 mg/dL Normal 27-150 [facility] Comment on above: Performed By: #### 2 4331-1, 3016-3 #### [facility] ([id number]) [address] [facility] [place] [address] TSHon 12-05-2023 TSH Qn 3.00 m[IU]/L [facility] TSH Qnon 12-05-2023 [facility] TSH 3.00 uIU/mL Normal 0.49-4.67 [facility] Comment on above: Performed By: #### 2 4331-1, 3016-3 #### [facility] ([id number]) [address] [facility] [place] [address] POINT OF CARE GLUCOSEon 10-06 Glucose [Mass/Vol] 252 mg/dL Critically high 74-106 [facility] Comment on above: Performed By: #### P OCGLUC ####[facility] Ly[address]yco[address] [place], [place] [address]Dr. Abiel Clement PROF CHEM 8 (BAS METB)on Anion gap [Moles/Vol] 11.5 mmol/L Normal [facility] Comment on above: Performed By: #### B MP ####[facility] B[address] [place], [place] [address]Dr. Abiel Clement Calcium [Mass/Vol] 9.6 mg/dL Normal 8.5-10.1 [facility] Comment on above: Performed By: #### B MP ####[facility] [address] [place] [address]Dr. Abiel Clement Chloride [Moles/Vol] 102 mmol/L Normal 98-107 Comment on above: Performed By: #### B MP ####[facility] [address] [place] [address]Dr. Abiel Clement CO2 [Moles/Vol] 30.8 mmol/L Normal 21.0-32.0 [facility] Comment on above: Performed By: #### B MP ####[facility] [address]qolncote[address] [place] [address]Dr. Abiel Clement Creatinine [Mass/Vol] 0.72 mg/dL Normal 0.55-1.02 Comment on above: Performed By: #### B MP ####[facility] [address] [place] [address]Dr. Abiel Urbano EGFR-AF RWANDAN >60 Normal >=60 [facility] Comment on above: Performed By: #### B MP ####[facility] [address]ihj61[address] [place] [address]Dr. Abiel Urbano EGFR-NON AF RWANDAN >60 Normal >=60 Comment on above: Performed By: #### B MP ####[facility] Wgiojsxqyz8118 [place] [address]Dr. Suyapaviviana Urbano Glucose [Mass/Vol] 127 mg/dL Critically high 74-106 [facility] Comment on above: Performed By: #### B MP ####[facility] [address]mmm[address] [place] [address]Dr. Suyapaviviana Urbano Potassium [Moles/Vol] 4.3 mmol/L Normal 3.5-5.1 Comment on above: Performed By: #### B MP ####[facility] [address]rjty27[address] [place] [address]Dr. Suyapaviviana Urbano Sodium [Moles/Vol] 140 mmol/L Normal 136-145 [facility] Comment on above: Performed By: #### B MP ####[facility] Jywusdxrfo9812 [place] [address]Dr. Suyapaviviana Urbano Urea nitrogen [Mass/Vol] 17.0 mg/dL Normal 7.0-18.0 Comment on above: Performed By: #### B MP ####[facility] Rwsovbvyeg1632 [place] [address]Dr. Abiel Clement Urea nitrogen/Creatinine [Mass ratio] 23.6 mg/mg Normal Comment on above: Performed By: #### B MP ####[facility] Fcxponhaqq6001 [place] [address]Dr. Abiel Clement CULTURE URINEon 08-07-2022 CULTURE URINE Normal [facility] Comment on above: Performed By: #### U RCX ####[facility] [address]wci[address] [place] [address]Dr. Abiel Clement CBC W MANUAL DIFFon 08-05-20 22 ANISOCYTOSIS SLIGHT Normal Comment on above: Performed By: #### C BCMAN ####[facility] [address]odnttwz[address] [place] [address]Dr. Abiel Clement ATYPICAL LYMPH # Normal [facility] Comment on above: Performed By: #### C BCMAN ####[facility] Q[address]vevtnod[address] [place] [address]Dr. Abiel Clement ATYPICAL LYMPH % Normal [facility] Comment on above: Performed By: #### C BCMAN ####[facility] Gxe[address]auhalc[address] [place], [place] [address]Dr. Abiel Clement BAND # 0.6 103/ul Critically high 0.0-0.3 [facility] Comment on above: Performed By: #### C BCMAN ####[facility] O[address] [place], [place] [address]Dr. Abiel Clement BAND % 3 % Normal 0-5 [facility] Comment on above: Performed By: #### C BCALLY ####[facility] Ifcgvgkldg[address] [place], [place] [address]Dr. Abiel Clement BASOM # 0.00 103/ul Normal 0.00-0.10 [facility] Comment on above: Performed By: #### C BCALLY ####[facility] [address]srbkdcajz[address] [place], [place] [address]Dr. Abiel Clement BASOM % 0.0 % Critically low 0.2-2.0 [facility] Comment on above: Performed By: #### C BCALLY ####[facility] Kyxgpotyqj[address] [place], [place] [address]Dr. Abiel Clement BLAST # Normal Comment on above: Performed By: #### C BCALLY ####[facility] Dmumjqllsb[address] [place], [place] [address]Dr. Abiel Clement BLAST % Normal [facility] Comment on above: Performed By: #### C BCALLY ####[facility] [address] [place], [place] [address]Ud. Abiel Clement CORRECTED WBC Normal 4.0-11.0 [facility] Comment on above: Performed By: #### C ALVINO ####[facility] Tunthnxchu3263 [place], [place] [address]Fg. Abiel Clement EOS # 0.00 103/ul Normal 0.00-0.70 [facility] Comment on above: Performed By: #### C ALVINO ####[facility] Zvobchibrm3997 [place], [place] [address]Tj. Abiel Clement EOS% 0.0 % Critically low 0.9-7.0 [facility] Comment on above: Performed By: #### C ALVINO ####[facility] Fxncyvdnhf9709 [place], [place] [address]Jl. Abiel Clement HCT 34.0 % Critically low 36.0-48.0 [facility] Comment on above: Performed By: #### C ALVINO ####[facility] Phdgqvjnpq4114 [place] [phone]. Abiel Clement HGB 10.8 g/dl Critically low 12.0-16.0 [facility] Comment on above: Performed By: #### C ALVINO ####[facility] Qgvjusyzhu0739 [place], [place] [address]Oh. Abiel Clement LYMPHM # 0.61 103/ul Critically low 1.20-3.80 [facility] Comment on above: Performed By: #### C ALVINO ####[facility] Vkyfgewovo5540 [place] [address]Dr. Abiel Clement LYMPHM% 3.0 % Critically low 20.5-60.0 [facility] Comment on above: Performed By: #### C ALVINO ####[facility] Gxoqyyxjvf9217 [place], [place] [address]Zy. Abiel Clement MCH 27.3 pg Normal 26.7-34.0 [facility] Comment on above: Performed By: #### C ALVINO ####[facility] Slatpdvjkf3181 [place] [phone]. Abiel Clement MCHC 31.8 g/dl Normal 29.9-35.2 [facility] Comment on above: Performed By: #### C ALVINO ####[facility] Dwdbxggdwy10[address] [place] [address]Dr. Abiel Clement MCV 85.9 fL Normal 81.0-99.0 [facility] Comment on above: Performed By: #### C ALVINO ####[facility] Vlcrwyfvyx8332 [place] [address]Dr. Abiel Clement METAMYELOCYTE # Normal [facility] Comment on above: Performed By: #### C ALVINO ####[facility] Lrmobsvpjg9213 [place] [address]Dr. Abiel Clement METAMYELOCYTE % Normal [facility] Comment on above: Performed By: #### C ALVINO ####[facility] [address]vnhqrxkbu[address] [place], [place] [address]Dr. Abiel Clement MONOM# 1.01 103/ul Critically high 0.30-0.80 [facility] Comment on above: Performed By: #### C ALVINO ####[facility] Yaiikdobjr[address] [place], [place] [address]Dr. Abiel Clement MONOM% 5.0 % Normal 1.7-12.0 Comment on above: Performed By: #### C ALVINO ####[facility] Akymumczar[address] [place], [place] [address]Dr. Abiel Clement MPV 11.1 fL Normal 9.5-13.5 [facility] Comment on above: Performed By: #### C ALVINO ####[facility] Tejjdonlth[address] [place] [address]Dr. Abiel Clement MYELOCYTE # Normal [facility] Comment on above: Performed By: #### C ALVINO ####[facility] Xdajsghzjl9565 [place] [address]Dr. Abiel Clement MYELOCYTE % Normal [facility] Comment on above: Performed By: #### C ALVINO ####[facility] Omvrosxtgf3318 [place] [address]Dr. Abiel Clement NRBC Normal [facility] Comment on above: Performed By: #### C ALVINO ####[facility] Oiluabepki3989 [place] [address]Dr. Abiel Clement PLT 283 103/ul Normal 150-450 Comment on above: Performed By: #### C ALVINO ####[facility] Jdxojtjnxv3115 [place], [place] [address]Ol. Abiel Clement RBC 3.96 106/ul Critically low 4.20-5.40 [facility] Comment on above: Performed By: #### C ALVINO ####[facility] Wkdkogstaa0855 [place] [address]Dr. Abiel Clement RDW 15.4 % Critically high 11.0-15.0 [facility] Comment on above: Performed By: #### C ALVINO ####[facility] Ampzqsrpva7027 [place] [address]Dr. Abiel Clement SEG # 18.07 103/ul Critically high 1.40-6.50 [facility] Comment on above: Performed By: #### C ALVINO ####[facility] Utlrlrjiyh3255 [place] [address]Dr. Abiel Clement SEG % 89.0 % Critically high 43.0-75.0 [facility] Comment on above: Performed By: #### C ALVINO ####[facility] Jgpcisijvt4024 [place] [address]Dr. Abiel Clement WBC 20.3 103/ul Critically high 4.0-11.0 [facility] Comment on above: Performed By: #### C ALVINO ####[facility] Gsnnxmqngt1001 [place] [address]Dr. Abiel Clement LACTATE/LACTIC ACIDon 2021 Lactate [Moles/Vol] 2.5 mmol/L Critically high 0.4-1.9 Comment on above: Performed By: #### L ACT ####[facility] Voqmsyawrd7794 [place] [address]Dr. Abiel Urbano POINT OF CARE GLUCOSEon 12-0 Glucose [Mass/Vol] 238 mg/dL Critically high 74-106 [facility] Comment on above: Performed By: #### P OCGLUC ####[facility] Asambhutbi48[address] [place] [address]Dr. Abiel Urbano PROF CHEM 8 (BAS METB)on Anion gap [Moles/Vol] 10.8 mmol/L Normal [facility] Comment on above: Performed By: #### B MP ####[facility] Caiexughpp5226 [place] [address]Dr. Abiel Clement Calcium [Mass/Vol] 8.4 mg/dL Critically low 8.5-10.1 [facility] Comment on above: Performed By: #### B MP ####[facility] Zsdretzgoq[address] [place], [place] [address]Dr. Abiel Clement Chloride [Moles/Vol] 103 mmol/L Normal 98-107 Comment on above: Performed By: #### B MP ####[facility] Chehcpetyb54[address] [place], [place] [address]Dr. Abiel Clement CO2 [Moles/Vol] 27.0 mmol/L Normal 21.0-32.0 [facility] Comment on above: Performed By: #### B MP ####[facility] Cm[address]fnsqlv[address] [place], [place] [address]Dr. Abiel Clement Creatinine [Mass/Vol] 1.02 mg/dL Normal 0.55-1.02 Comment on above: Performed By: #### B MP ####[facility] Icfpsdyddj9013 [place] [address]Dr. Abiel Clement EGFR-AF RWANDAN >60 Normal >=60 [facility] Comment on above: Performed By: #### B MP ####[facility] Eiudehxnhu8645 [place] [address]Dr. Abiel Clement EGFR-NON AF RWANDAN 55 mL/min/1.73m2 Critically low >=60 Comment on above: Performed By: #### B MP ####[facility] Qpxfvdtyvz6056 [place] [address]Dr. Abiel Clement Glucose [Mass/Vol] 199 mg/dL Critically high 74-106 T [facility] Comment on above: Performed By: #### B MP ####[facility] Apjhdkoiim[address] [place], [place] [address]Dr. Abiel Clement Potassium [Moles/Vol] 3.8 mmol/L Normal 3.5-5.1 Comment on above: Performed By: #### B MP ####[facility] Mwelllzies[address] [place], [place] [address]Dr. Abiel Clement Sodium [Moles/Vol] 137 mmol/L Normal 136-145 [facility] Comment on above: Performed By: #### B MP ####[facility] Kcaurvzroi[address] [place], [place] [address]Dr. Abiel Clement Urea nitrogen [Mass/Vol] 21.0 mg/dL Critically high 7.0-18.0 Comment on above: Performed By: #### B MP ####[facility] Ecyffanoww32[address] [place], [place] [address]Dr. Abiel Clement Urea nitrogen/Creatinine [Mass ratio] 20.6 mg/mg Normal Comment on above: Performed By: #### B MP ####[facility] Ttvebyfpmo[address] [place], [place] [address]Dr. Abiel Clement ACETONE SERUMon 08-04-2022 ACETONE Negative Normal NEGATIVE Comment on above: Performed By: #### A CETON ####[facility] Fuokhodbwp8[address] [place], [place] [address]Dr. Abiel Clement AMMONIAon 08-04-2022 Ammonia (P) [Moles/Vol] 24 umol/L Normal - Comment on above: Performed By: #### A MM ####[facility] Zpbudruyeh[address] [place], [place] [address]Dr. Abiel Clement CBC AUTO DIFFon 08-04-2022 BASO # 0.0 103/ul Normal 0.0-0.1 Comment on above: Performed By: #### C BC ####[facility] Luzdbwltlu3654 [place] [address]Dr. Abiel Clement Basophils/100 WBC (Bld) 0.3 % Normal 0.2-2.0 [facility] Comment on above: Performed By: #### C BC ####[facility] Hyt[address]xdv[address] [place], [place] [address]Dr. Abiel Clement EO # 0.0 103/ul Normal 0.0-0.7 [facility] Comment on above: Performed By: #### C BC ####[facility] Pxarizhkto04[address] [place], [place] [address]Dr. Abiel Clement Eosinophils/100 WBC (Bld) 0.4 % Critically low 0.9-7.0 [facility] Comment on above: Performed By: #### C BC ####[facility] Kjafwppluo[address] [place], [place] [address]Dr. Abiel Clement Erythrocyte distribution width (RBC) [Ratio] 15.1 % Critically high 11.0-15.0 [facility] Comment on above: Performed By: #### C BC ####[facility] Diqpmrglts[address] [place], [place] [address]Dr. Abiel Clement Hematocrit (Bld) [Volume fraction] 37.7 % Normal 36.0-48.0 [facility] Comment on above: Performed By: #### C BC ####[facility] Kfwxibzqsx[address] [place], [place] [address]Dr. Abiel Clement Hemoglobin (Bld) [Mass/Vol] 12.4 g/dL Normal 12.0-16.0 [facility] Comment on above: Performed By: #### C BC ####[facility] Bhsaogvnyi06[address] [place], [place] [address]Dr. Abiel Clement IG # 0.02 10e3/ul Normal 0.00-0.03 [facility] Comment on above: Performed By: #### C BC ####[facility] Xhluopknsk[address] [place], [place] [address]Dr. Abiel Clement IG % 0.2 % Normal 0.0-0.5 [facility] Comment on above: Performed By: #### C BC ####[facility] Ohpawyvzqe7611 [place] [address]Dr. Abiel Clement LYMPH # 0.6 103/ul Critically low 1.2-3.8 [facility] Comment on above: Performed By: #### C BC ####[facility] Zpdlzwruvw9618 [place] [address]Dr. Abiel Urbano Lymphocytes/100 WBC (Bld) 6.8 % Critically low 20.5-60.0 Comment on above: Performed By: #### C BC ####[facility] Byqkxtiokd0822 [place] [address]Dr. Suyapaviviana Clement MANUAL DIFF REQ NO Normal [facility] Comment on above: Performed By: #### C BC ####[facility] Qyfpjywnbu4274 [place] [address]Dr. Abiel Urbano MCH (RBC) [Entitic mass] 27.7 pg Normal 26.7-34.0 Comment on above: Performed By: #### C BC ####[facility] Ljymwovmdr1107 [place] [address]Dr. Abiel Clement MCHC (RBC) [Mass/Vol] 32.9 g/dL Normal 29.9-35.2 Comment on above: Performed By: #### C BC ####[facility] Hspegcykej9671 [place] [address]Dr. Abiel Urbano MCV (RBC) [Entitic vol] 84.2 fL Normal 81.0-99.0 [facility] Comment on above: Performed By: #### C BC ####[facility] Tfolfpbsgg6962 [place] [address]Dr. Abiel Clement MONO # 0.4 103/ul Normal 0.3-0.8 [facility] Comment on above: Performed By: #### C BC ####[facility] Clldvezdcp4185 [place] [address]Dr. Abiel Urbano Monocytes/100 WBC (Bld) 4.7 % Normal 1.7-12.0 [facility] Comment on above: Performed By: #### C BC ####[facility] Cyisivzhcw6453 [place] [address]Dr. Abiel Clement NEUT # 8.1 103/ul Critically high 1.4-6.5 [facility] Comment on above: Performed By: #### C BC ####[facility] Qsbuzcnyai8789 [place] [address]Dr. Abiel Clement Neutrophils/100 WBC (Bld) 87.6 % Critically high 43.0-75.0 Comment on above: Performed By: #### C BC ####[facility] Vmykokpeqg8228 [place] [address]Dr. Abiel Clement Platelet mean volume (Bld) [Entitic vol] 10.5 fL Normal 9.5-13.5 Comment on above: Performed By: #### C BC ####[facility] Btglnivpfb6431 [place] [address]Dr. Abiel Clement PLT 286 103/ul Normal 150-450 [facility] Comment on above: Performed By: #### C BC ####[facility] Vocpsmcjrt2741 [place] [address]Dr. Abiel Clement RBC 4.48 106/ul Normal 4.20-5.40 [facility] Comment on above: Performed By: #### C BC ####[facility] Vajtweanng4211 [place] [address]Dr. Abiel Clement WBC 9.2 103/ul Normal 4.0-11.0 [facility] Comment on above: Performed By: #### C BC ####[facility] Unwliepxwr5111 [place] [address]Dr. Abiel Clement CT ABD/PELV W CONon 08-04-[address] ABD/PELV W CON Normal [facility] CT HEAD WO CONon 08-04-2022 CT HEAD WO CON Normal [facility] CULTURE BLOODon 08-04-2022 Microscopic examination of blood, culture Culture Observations: NO GROWTH AT 5 DAYS. Normal [facility] Comment on above: Performed By: #### B LDCX1 ####[facility] Nazigtidzu3898 [place] [address]Dr. Abiel Clement Performed By: #### B LDCX2 ####[facility] Fwgdtlrrxy09[address] [place] [address]Dr. Abiel Clement [facility]on [facility]-08 SARS-CoV-2 (COVID-19) RNA CLARIBEL+probe Ql (Unsp spec) Not detected Normal NOT DETECTED [facility] Comment on above: Result Comment: When [...] for this test is supported by the [place] of [employer] and Human Service's declaration that [...] be used). Performed By: #### C VDTBH ####[facility] Qyprabjlsq55[address] [place] [address]Dr. Abiel Clement DRUG SCREEN RAPID (URINE)on 08-04-2022 AMP Negative Normal NEGATIVE [facility] Comment on above: Performed By: #### D RUGRPD ####[facility] Yhrgyuxkte4503 [place] [address]Dr. Abiel Clement BAR Negative Normal NEGATIVE [facility] Comment on above: Performed By: #### D RUGRPD ####[facility] Uwrmaedphn0459 [place] [address]Dr. Abiel Clement BUP Negative Normal NEGATIVE [facility] Comment on above: Performed By: #### D RUGRPD ####[facility] [address]hnl[address]nb[address] [place], [place] [address]Dr. Abiel Clement BZO Negative Normal NEGATIVE [facility] Comment on above: Performed By: #### D RUGRPD ####[facility] Jejjxfcqtq9765 [place] [address]Dr. Abiel Clement CAROLINE Negative Normal NEGATIVE [facility] Comment on above: Performed By: #### D RUGRPD ####[facility] Ludkameykj55[address] [place] [address]Dr. Abiel Clement CUT-OFFS SEE BELOW Normal [facility] Comment on above: Result Comment: AMP (Amphetamine): 500ng/mL, BAR (Barbituates): 200 ng/mL, BZO (Benzodiazepines): 150 ng/mL, BUP (Buprenorphine): 10 ng/mL, CAROLINE (Cocaine): 150 ng/mL, mAMP (Methamphetamine): 500 ng/mL, MTD (Methadone): 200 ng/mL, OPI (Opiates): 100 ng/mL, OXY (Oxycodone): 100 ng/mL, PCP (Phencyclidine): 25 ng/mL, PPX (Propoxyphene): 300 ng/mL, THC (Cannabinoids): 50 ng/mL, TCA (Trycyclic Antidepressants): 300 ng/mL Performed By: #### D RUGRPD ####[facility] Cmlpxdmfrq[address] [place], [place] [address]Dr. Abiel Clement DRUG CUT HEADER DRUG CLASS TEST SYSTEM CUT-OFF CONCENTRATIONS ARE FOLLOWS: Normal [facility] Comment on above: Performed By: #### D RUGRPD ####[facility] Ikmesygpch[address] [place], [place] [address]Dr. Abiel Clement mAMP Negative Normal NEGATIVE [facility] Comment on above: Performed By: #### D RUGRPD ####[facility] Efpwexaqge6939 [place] [address]Dr. Abiel Clement MTD Negative Normal NEGATIVE [facility] Comment on above: Performed By: #### D RUGRPD ####[facility] Jeuswoekqz1975 [place] [address]Dr. Abiel Clement OPI Positive Abnormal NEGATIVE [facility] Comment on above: Performed By: #### D RUGRPD ####[facility] Sfcxlnocfs4651 [place] [address]Dr. Abiel Clement OXY Negative Normal NEGATIVE [facility] Comment on above: Performed By: #### D RUGRPD ####[facility] Xqxhtugbti8140 [place] [address]Dr. Abiel Clement PCP Negative Normal NEGATIVE [facility] Comment on above: Performed By: #### D RUGRPD ####[facility] Xmbdislfgu[address] [place], [place] [address]Dr. Abiel Clement PPX Negative Normal NEGATIVE [facility] Comment on above: Performed By: #### D RUGRPD ####[facility] Zqpszsgmkk[address] [place], [place] [address]Dr. Abiel Clement TCA Negative Normal NEGATIVE [facility] Comment on above: Performed By: #### D RUGRPD ####[facility] Scasmpxunx[address] [place], [place] [address]Dr. Abiel Clement THC Negative Normal NEGATIVE [facility] Comment on above: Performed By: #### D RUGRPD ####[facility] Mxwqbwbkuc[address] [place], [place] [address]Dr. Abiel Urbano ER URINE PROFILEon 2 Bilirubin Ql (U) Negative Normal NEGATIVE [facility] Comment on above: Performed By: #### NESSA ACE ####[facility] Gogmjnzurh4[address] [place], [place] [address]Dr. Abiel Clement Clarity (U) CLEAR Normal CLEAR [facility] Comment on above: Performed By: #### NESSA ACE ####[facility] Rljhexorzf[address] [place], [place] [address]Dr. Abiel Clement Color (U) LT. YELLOW Normal YELLOW Comment on above: Performed By: #### NESSA ACE ####[facility] Sbljabdqkq[address] [place], [place] [address]Dr. Abiel Clement ERUAHD A micrscopic examination will be performed if indicated. Normal [facility] Comment on above: Performed By: #### NESSA ACE ####[facility] Aahmkmveyp1656 [place] [address]Dr. Abiel Clement Glucose Ql (U) Negative Normal NEGATIVE [facility] Comment on above: Performed By: #### NESSA ACE ####[facility] Rtpoxsinzv[address] [place], [place] [address]Dr. Abiel Clement Hemoglobin Ql (U) SMALL Abnormal NEGATIVE [facility] Comment on above: Performed By: #### NESSA ACE ####[facility] Xzrjaocofr[address] [place], [place] [address]Dr. Abiel Clement Ketones Ql (U) Negative Normal NEGATIVE [facility] Comment on above: Performed By: #### NESSA ACE ####[facility] Dgxxwcolkm[address] [place], [place] [address]Dr. Abiel Clement LEUKOCYTES LARGE Abnormal NEGATIVE Comment on above: Performed By: #### NESSA ACE ####[facility] [address]xdexeyieo[address] [place], [place] [address]Dr. Abiel Clement Nitrite Ql (U) Negative Normal NEGATIVE [facility] Comment on above: Performed By: #### NESSA ACE ####[facility] Lqlzcylcrq[address] [place], [place] [address]Dr. Abiel Clement pH (U) 5.0 [pH] Normal 5-9 Comment on above: Performed By: #### NESSA ACE ####[facility] Lxjzhkixyw[address] [place], [place] [address]Dr. Abiel Clement SPEC GRAVITY 1.020 Normal 1.005-<=1.02 5 Comment on above: Performed By: #### NESSA ACE ####[facility] Sixdeihvib4[address] [place], [place] [address]Dr. Abiel Clement UA PROTEIN Negative Normal NEGATIVE/ TRACE [facility] Comment on above: Performed By: #### NESAS ACE ####[facility] Fapbiyhkhj6[address] [place], [place] [address]Dr. Abiel Clement UR MICRO IND INDICATED Normal Comment on above: Performed By: #### E NESSA GERMAN ####[facility] Yktukfayzk9[address] [place], [place] [address]Dr. Abiel Clement Urobilinogen Qn (U) 0.2 {Keegan'U}/dL Normal 0.2 - 1. 0 Comment on above: Performed By: #### E NESSA GERMAN ####[facility] Bncrhyrrgw5[address] [place], [place] [address]Dr. Abiel Clement ETHANOL (BLD ALC)on 08-04-20 22 ALC NOTE NOTE: 80 mg/dl is th e legal limit for a blood alcohol level Normal Comment on above: Performed By: #### E TH ####[facility] Iqrpwmezii57[address] [place], [place] [address]Dr. Abiel Clement Ethanol [Mass/Vol] mg/dL Normal [facility] Comment on above: Performed By: #### E TH ####[facility] Crcjzgumuh[address] [place], [place] [address]Dr. Abiel Clement INFLUENZA A AND B AGon 08-04 INFLUANEGH SEE BELOW Normal Comment on above: Result Comment: Nega tive for Flu A protein angiten. Infection due to Flu A cannot be ruled out. Flu A angiten in the sample may be below the detection limit of the test. Performed By: #### I NFLUAB ####[facility] Emingsnmyt[address] [place], [place] [address]Dr. Abiel Clement INFLUBNEGH SEE BELOW Normal Comment on above: Result Comment: Nega tive for Flu B protein antigen. Infection due to Flu B cannot be ruled out. Flu B antigen in the sample may be below the detection limit of the test. Performed By: #### I NFLUAB ####[facility] Khsglstlxi17[address] [place], [place] [address]Dr. Abiel Clement INFLUENZA A AG Negative Normal NEGATIVE SEE COMMENT Comment on above: Performed By: #### I NFLUAB ####[facility] Lconeptarp92[address] [place], [place] [address]Dr. Abiel Clement INFLUENZA B AG Negative Normal NEGATIVE SEE COMMENT [facility] Comment on above: Performed By: #### I NFLUAB ####[facility] Gogoifvkzn[address] [place] [address]Dr. Abiel Clement INTERNAL CONTROLS Within Normal Limits Normal Wi thin Normal Limits Comment on above: Performed By: #### I NFLUAB ####[facility] Hsoovdsaoi80[address] [place] [address]Dr. Suyapaviviana Urbano LACTATE/LACTIC ACIDon 2021 Lactate [Moles/Vol] 2.0 mmol/L Critically high 0.4-1.9 Comment on above: Performed By: #### L ACT ####[facility] Xuwzhexucz5[address] [place], [place] [address]Dr. Abiel Clement LIPASEon 08-04-2022 Lipase [Catalytic activity/Vol] 28.0 U/L Critically low 73.0-393.0 Comment on above: Performed By: #### L IPA, CMP, HSTROPN, TSH ####[facility] [address]acdqad[address] [place] [address]Dr. Abiel Clement PH VENOUS BLOODon 08-04-2022 PCO2 VENOUS 30.0 mmHg Critically low 40.0-52.0 [facility] Comment on above: Performed By: #### P HVEN ####[facility] Vxgzpchszk[address] [place] [address]Dr. Suyapaviviana Clement pH VENOUS 7.509 Critically high 7.330-7.430 [facility] Comment on above: Performed By: #### P HVEN ####[facility] [address]velodzqep[address] [place] [address]Dr. Abiel Clement POINT OF CARE GLUCOSEon 07-08 Glucose [Mass/Vol] 230 mg/dL Critically high 74-106 T [facility] Comment on above: Performed By: #### P OCGLUC ####[facility] Xsakdwwjoh02[address] [place] [address]Dr. Abiel Clement PROF 14(COMP METB)on 022 Albumin [Mass/Vol] 3.0 g/dL Critically low 3.4-5.0 [facility] Comment on above: Performed By: #### L IPA, CMP, HSTROPN, TSH ####[facility] Heweboikga[address] [place] [address]Dr. Abiel Clement Albumin/Globulin [Mass ratio] 0.7 {ratio} Normal Comment on above: Performed By: #### L IPA, CMP, HSTROPN, TSH ####[facility] Sqpyeerovo9678 [place] [address]Dr. Abiel Clement ALP [Catalytic activity/Vol] 196 U/L Critically high 46-116 Comment on above: Performed By: #### L IPA, CMP, HSTROPN, TSH ####[facility] Vbtsbtaqsh1582 [place] [address]Dr. Abiel Clement ALT [Catalytic activity/Vol] 21 U/L Normal 14-59 Comment on above: Performed By: #### L IPA, CMP, HSTROPN, TSH ####[facility] Ebrtzwicxc23[address] [place], [place] [address]Dr. Abiel Clement Anion gap [Moles/Vol] 12.1 mmol/L Normal [facility] Comment on above: Performed By: #### L IPA, CMP, HSTROPN, TSH ####[facility] Xuxetxkwee0606 [place] [address]Dr. Abiel Clement AST [Catalytic activity/Vol] 29 U/L Normal 15-37 Comment on above: Performed By: #### L IPA, CMP, HSTROPN, TSH ####[facility] Gwerneepqu[address] [place] [address]Dr. Abiel Clement Bilirubin [Mass/Vol] 0.3 mg/dL Normal 0.2-1.0 Comment on above: Performed By: #### L IPA, CMP, HSTROPN, TSH ####[facility] Gxoafoejmf3387 [place] [address]Dr. Abiel Clement Calcium [Mass/Vol] 8.9 mg/dL Normal 8.5-10.1 [facility] Comment on above: Performed By: #### L IPA, CMP, HSTROPN, TSH ####[facility] Fuibffbdbv668[address] [place] [address]Dr. Abiel Clement Chloride [Moles/Vol] 102 mmol/L Normal 98-107 [facility] Comment on above: Performed By: #### L IPA, CMP, HSTROPN, TSH ####[facility] Jomqcpzhyl2173 [place] [address]Dr. Abiel Clement CO2 [Moles/Vol] 27.1 mmol/L Normal 21.0-32.0 [facility] Comment on above: Performed By: #### L IPA, CMP, HSTROPN, TSH ####[facility] Ecyzckaaxg00[address] [place], [place] [address]Dr. Abiel Clement Creatinine [Mass/Vol] 0.83 mg/dL Normal 0.55-1.02 [facility] Comment on above: Performed By: #### L IPA, CMP, HSTROPN, TSH ####[facility] Abtnczpjuc68[address] [place], [place] [address]Dr. Abiel Clement EGFR-AF RWANDAN >60 Normal >=60 [facility] Comment on above: Performed By: #### L IPA, CMP, HSTROPN, TSH ####[facility] Kgvkenlgcn17[address] [place] [address]Dr. Abiel Clement EGFR-NON AF RWANDAN >60 Normal >=60 [facility] Comment on above: Performed By: #### L IPA, CMP, HSTROPN, TSH ####[facility] Nrrxjbency3562 [place] [address]Dr. Abiel Clement Globulin (S) [Mass/Vol] 4.2 g/dL Normal [facility] Comment on above: Performed By: #### L IPA, CMP, HSTROPN, TSH ####[facility] Opssrgvvbs2290 [place] [address]Dr. Abiel Clement Glucose [Mass/Vol] 132 mg/dL Critically high 74-106 T [facility] Comment on above: Performed By: #### L IPA, CMP, HSTROPN, TSH ####[facility] Sclsenjsst7894 [place] [address]Dr. Abiel Clement Potassium [Moles/Vol] 4.2 mmol/L Normal 3.5-5.1 [facility] Comment on above: Performed By: #### L IPA, CMP, HSTROPN, TSH ####[facility] Vujbkcrmdf3119 [place] [address]Dr. Suyapaviviana Clement Protein [Mass/Vol] 7.2 g/dL Normal 6.4-8.2 [facility] Comment on above: Performed By: #### L IPA, CMP, HSTROPN, TSH ####[facility] Ycjysnsays9608 [place] [address]Dr. Suyapaviviana Clement Sodium [Moles/Vol] 137 mmol/L Normal 136-145 [facility] Comment on above: Performed By: #### L IPA, CMP, HSTROPN, TSH ####[facility] Ecdppubngq[address] [place], [place] [address]Dr. Abiel Clement Urea nitrogen [Mass/Vol] 18.0 mg/dL Normal 7.0-18.0 [facility] Comment on above: Performed By: #### L IPA, CMP, HSTROPN, TSH ####[facility] Alxlqobstk[address] [place], [place] [address]Dr. Abiel Clement Urea nitrogen/Creatinine [Mass ratio] 21.7 mg/mg Normal [facility] Comment on above: Performed By: #### L IPA, CMP, HSTROPN, TSH ####[facility] Uxfvqucpbj2153 [place] [address]Dr. Abiel Clement PROTIMEon 08-04-2022 INR Coag (PPP) [Relative time] 1.05 {INR} Normal [facility] Comment on above: Performed By: #### P TT, PT ####[facility] Irhahkfvdj[address] [place], [place] [address]Dr. Abiel Clement INR GUIDELINES SEE BELOW Normal [facility] Comment on above: Result Comment: GELY RED INR: 2.0 - 3.0 CONDITIONS NOT LISTED BELOW 2.5 - 3.5 FOR PROSTHETIC HEART VALVE REPLACEMENT 2.5 - 3.5 RECURRENT THROMBOSIS Performed By: #### P TT, PT ####[facility] Eeubohpmik[address] [place] [address]Dr. Abiel Clement PT Coag (PPP) [Time] 11.3 s Normal 9.0-11.6 [facility] Comment on above: Performed By: #### P TT, PT ####[facility] Hjrgaiwcip3538 [place] [address]Dr. Abiel Clement PTTon 08-04-2022 aPTT Coag (Bld) [Time] 25.2 s Normal 22.3-36.2 [facility] Comment on above: Performed By: #### P TT, PT ####[facility] Smpcdtzudf[address] [place], [place] [address]Dr. Abiel Clement TROPONIN, HIGH SENSITIVITYon 08-04-2022 HSTROP 5.0 pg/mL Normal 4.0-51.3 [facility] Comment on above: Result Comment: CUT- OFF POINTS HAVE BEEN ESTABLISHED BASED ON THE FOURTH UNIVERSAL DEFINITIONS OF MYOCARDIALINFARCTION. THE UPPER REFERENCE LIMIT (URL) OF TROPONIN, DEFINED THE 99TH PERCENTILE OFcTnI DISTRIBUTION IN A REFERENCE POPULATION, HAS BEEN CONFIRMED THE DECISION THRESHOLDFOR OR DIAGNOSIS. Performed By: #### L IPA, CMP, HSTROPN, TSH ####[facility] Nznrapxhxk04[address] [place] [address]Dr. Abiel Clement TSHon 08-04-2022 TSH 1.695 uIU/mL Normal 0.358-3.740 [facility] Comment on above: Performed By: #### L IPA, CMP, HSTROPN, TSH ####[facility] Gr[address]amgvru[address] [place] [address]Dr. Abiel Clement URINE MICROSCOPIC ONLYon BACTERIA MODERATE Abnormal NONE SEEN [facility] Comment on above: Performed By: #### E CARLOS GERMANRO ####[facility] Fwwrymdaol[address] [place] [address]Dr. Abiel Clement Bacteria identified Cx Nom (U) INDICATED Normal [facility] Comment on above: Performed By: #### E RANDYR, UMICRO ####[facility] Wfhphydovs6772 [place] [address]Dr. Abiel Clement CAST NONE SEEN Normal NONE SEEN [facility] Comment on above: Performed By: #### CARLOS ACERO ####[facility] Cfvpsmaxaz3819 [place] [address]Dr. Abiel Clement Crystals LM Nom (Urine sed) NONE SEEN Normal NONE SEEN [facility] Comment on above: Performed By: #### CARLOS ACERO ####[facility] Qgpfnjxawr8858 [place] [address]Dr. Abiel Clement Epithelial cells LM Ql (Urine sed) FEW Abnormal NONE SEEN /RARE [facility] Comment on above: Performed By: #### CARLOS ACERO ####[facility] Jfrjejgyyv14[address] [place] [address]Dr. Abiel Clement MUCOUS NONE SEEN Normal NONE SEEN [facility] Comment on above: Performed By: #### CARLOS ACERO ####[facility] Peinssjeni[address] [place], [place] [address]Dr. Abiel Clement RBC 2-5 Abnormal 0-2 [facility] Comment on above: Performed By: #### CARLOS ACERO ####[facility] Ybikaazctr[address] [place], [place] [address]Dr. Abiel Clement WBC 10-20 Abnormal NONE SEEN [facility] Comment on above: Performed By: #### CARLOS ACERO ####[facility] Ihzwujlexv0[address] [place], [place] [address]Dr. Abiel Clement XR CHEST 1 Von 08-04-2022 XR CHEST 1 V Normal [facility] XR FOOT RT MIN 3 VIEWSon XR FOOT RT MIN 3 VIEWS Normal [facility] CBC AUTO DIFFon 06-03-2022 BASO # 0.0 103/ul Normal 0.0-0.1 [facility] Comment on above: Performed By: #### C BC ####[facility] Exrqsuceku[address] [place], [place] [address]Dr. Abiel Clement Basophils/100 WBC (Bld) 0.5 % Normal 0.2-2.0 [facility] Comment on above: Performed By: #### C BC ####[facility] Hpkpcfhfcq[address] [place], [place] [address]Dr. Abiel Clement EO # 0.3 103/ul Normal 0.0-0.7 [facility] Comment on above: Performed By: #### C BC ####[facility] Iancpfsuob9[address] [place], [place] [address]Dr. Abiel Clement Eosinophils/100 WBC (Bld) 3.5 % Normal 0.9-7.0 [facility] Comment on above: Performed By: #### C BC ####[facility] Onbjymxwrd59[address] [place], [place] [address]Dr. Abiel Clement Erythrocyte distribution width (RBC) [Ratio] 13.7 % Normal 11.0-15.0 [facility] Comment on above: Performed By: #### C BC ####[facility] Endrzdhswj64[address] [place], [place] [address]Dr. Abiel Clement Hematocrit (Bld) [Volume fraction] 34.2 % Critically low 36.0-48.0 [facility] Comment on above: Performed By: #### C BC ####[facility] Yydfsypfgd[address] [place], [place] [address]Dr. Abiel Clement Hemoglobin (Bld) [Mass/Vol] 10.5 g/dL Critically low 12.0-16.0 [facility] Comment on above: Performed By: #### C BC ####[facility] Gcqafmqedu[address] [place], [place] [address]Dr. Abiel Clement IG # 0.02 10e3/ul Normal 0.00-0.03 [facility] Comment on above: Performed By: #### C BC ####[facility] Ofxihmglym18[address] [place], [place] [address]Dr. Abiel Urbano IG % 0.3 % Normal 0.0-0.5 [facility] Comment on above: Performed By: #### C BC ####[facility] Dvzukavyej[address] [place], [place] [address]Dr. Abiel Clement LYMPH # 1.4 103/ul Normal 1.2-3.8 [facility] Comment on above: Performed By: #### C BC ####[facility] Iyikmaaosc5182 [place] [address]DrKasia Clement Lymphocytes/100 WBC (Bld) 18.5 % Critically low 20.5-60.0 [facility] Comment on above: Performed By: #### C BC ####[facility] Gtobpfhhar7904 [place] [address]DrKasia Clement MANUAL DIFF REQ NO Normal [facility] Comment on above: Performed By: #### C BC ####[facility] Xtsdoykdpq2013 [place] [address]Dr. Abiel Clement MCH (RBC) [Entitic mass] 27.8 pg Normal 26.7-34.0 [facility] Comment on above: Performed By: #### C BC ####[facility] Rqzqjlbwvv[address] [place], [place] [address]Dr. Abiel Clement MCHC (RBC) [Mass/Vol] 30.7 g/dL Normal 29.9-35.2 [facility] Comment on above: Performed By: #### C BC ####[facility] Ijiusoobjn01[address] [place], [place] [address]DrKasia Clement MCV (RBC) [Entitic vol] 90.5 fL Normal 81.0-99.0 [facility] Comment on above: Performed By: #### C BC ####[facility] Tskdegmrln6905 [place] [address]DrKasia Clement MONO # 0.7 103/ul Normal 0.3-0.8 [facility] Comment on above: Performed By: #### C BC ####[facility] Uyoxcykyyt[address] [place], [place] [address]DrKasia Clement Monocytes/100 WBC (Bld) 8.5 % Normal 1.7-12.0 [facility] Comment on above: Performed By: #### C BC ####[facility] Lznxlliysz20[address] [place], [place] [address]Dr. Abiel Clement NEUT # 5.2 103/ul Normal 1.4-6.5 Comment on above: Performed By: #### C BC ####[facility] Sqcpppdyba6727 [place] [address]Dr. Abiel Clement Neutrophils/100 WBC (Bld) 68.7 % Normal 43.0-75.0 Comment on above: Performed By: #### C BC ####[facility] Ttscjpmijw7410 [place] [address]Dr. Abiel Clement Platelet mean volume (Bld) [Entitic vol] 11.0 fL Normal 9.5-13.5 Comment on above: Performed By: #### C BC ####[facility] Aiypdcnxpa[address] [place], [place] [address]Dr. Abiel Clement PLT 249 103/ul Normal 150-450 Comment on above: Performed By: #### C BC ####[facility] Chgxicmsqu26[address] [place], [place] [address]Dr. Abiel Clement RBC 3.78 106/ul Critically low 4.20-5.40 [facility] Comment on above: Performed By: #### C BC ####[facility] Lfdsqbbejb8[address] [place], [place] [address]Dr. Abiel Clement WBC 7.6 103/ul Normal 4.0-11.0 Comment on above: Performed By: #### C BC ####[facility] Krqvvgqfiv[address] [place], [place] [address]DrKasia Abiel Clement POINT OF CARE GLUCOSEon - Glucose [Mass/Vol] 84 mg/dL Normal 74-106 [facility] Comment on above: Performed By: #### P OCGLUC ####[facility] Povvfcwbqp5739 [place] [address]Dr. Abiel Urbano Glucose [Mass/Vol] 49 mg/dL Critically low 74-106 [facility] Comment on above: Result Comment: Will Repeat Test Performed By: #### P OCGLUC ####[facility] Dnqcgiqfot[address] [place], [place] [address]Dr. Abiel Clement Glucose [Mass/Vol] 182 mg/dL Critically high 74-106 T [facility] Comment on above: Performed By: #### P OCGLUC ####[facility] Tjxihffoai1586 [place] [address]Dr. Suyapaviviana Clement PROF CHEM 8 (BAS METB)on Anion gap [Moles/Vol] 8.5 mmol/L Normal Comment on above: Performed By: #### B MP ####[facility] Jybokooemi8599 [place] [address]Dr. Aibel Clement Calcium [Mass/Vol] 9.2 mg/dL Normal 8.5-10.1 [facility] Comment on above: Performed By: #### B MP ####[facility] Epvlofldjx6039 [place] [address]Dr. Abiel Clement Chloride [Moles/Vol] 99 mmol/L Normal 98-107 Comment on above: Performed By: #### B MP ####[facility] Zxrvozovll9624 [place] [address]Dr. Abiel Clement CO2 [Moles/Vol] 29.5 mmol/L Normal 21.0-32.0 [facility] Comment on above: Performed By: #### B MP ####[facility] Amkzclwufe2202 [place] [address]Dr. Abiel Clement Creatinine [Mass/Vol] 0.97 mg/dL Normal 0.55-1.02 Comment on above: Performed By: #### B MP ####[facility] Ekxrhonxut8848 [place] [address]Dr. Abiel Clement EGFR-AF RWANDAN >60 Normal >=60 [facility] Comment on above: Performed By: #### B MP ####[facility] Brgoumqehg5274 [place] [address]Dr. Abiel Clement EGFR-NON AF RWANDAN 58 mL/min/1.73m2 Critically low >=60 Comment on above: Performed By: #### B MP ####[facility] Qfrayyaepj6684 [place] [address]Dr. Abiel Clement Glucose [Mass/Vol] 193 mg/dL Critically high 74-106 T [facility] Comment on above: Performed By: #### B MP ####[facility] Lhozftvtpp[address] [place], [place] [address]Dr. Abiel Clement Potassium [Moles/Vol] 4.0 mmol/L Normal 3.5-5.1 Comment on above: Performed By: #### B MP ####[facility] Xtrufuzwtj[address] [place], [place] [address]Dr. Abiel Clement Sodium [Moles/Vol] 133 mmol/L Critically low 136-145 [facility] Comment on above: Performed By: #### B MP ####[facility] Cdgeiwvubv90[address] [place], [place] [address]Dr. Abiel Clement Urea nitrogen [Mass/Vol] 20.0 mg/dL Critically high 7.0-18.0 Comment on above: Performed By: #### B MP ####[facility] Jhvgbblglc34[address] [place], [place] [address]Dr. Abiel Clement Urea nitrogen/Creatinine [Mass ratio] 20.6 mg/mg Normal Comment on above: Performed By: #### B MP ####[facility] Xijvpwjgkd[address] [place], [place] [address]Dr. Abiel Clement POINT OF CARE GLUCOSEon 05-07 Glucose [Mass/Vol] 62 mg/dL Critically low 74-106 [facility] Comment on above: Performed By: #### P OCGLUC ####[facility] Cpwruqzsrb44[address] [place], [place] [address]Dr. Suyapalan Clement Glucose [Mass/Vol] 75 mg/dL Normal 74-106 [facility] Comment on above: Performed By: #### P OCGLUC ####[facility] Btkwacbbvq[address] [place], [place] [address]Dr. Suyapalan Clement Glucose [Mass/Vol] 83 mg/dL Normal 74-106 [facility] Comment on above: Performed By: #### P OCGLUC ####[facility] Pbaeqozgiq9978 [place] [address]Dr. Abiel Clement Glucose [Mass/Vol] 107 mg/dL Critically high 74-106 [facility] Comment on above: Performed By: #### P OCGLUC ####[facility] Hdjrxwgogd65[address] [place], [place] [address]Dr. Abiel Clement Glucose [Mass/Vol] 140 mg/dL Critically high 74-106 [facility] Comment on above: Performed By: #### P OCGLUC ####[facility] Brqjuocuze7[address] [place], [place] [address]Dr. Abiel Clement CBC AUTO DIFFon 06-01-2022 BASO # 0.0 103/ul Normal 0.0-0.1 [facility] Comment on above: Performed By: #### C BC ####[facility] Pcpjzpxslv[address] [place], [place] [address]Dr. Abiel Clement Basophils/100 WBC (Bld) 0.3 % Normal 0.2-2.0 Comment on above: Performed By: #### C BC ####[facility] Cuzpl[address]ebq[address] [place], [place] [address]Dr. Abiel Clement EO # 0.2 103/ul Normal 0.0-0.7 [facility] Comment on above: Performed By: #### C BC ####[facility] Wlrasedrtb[address] [place], [place] [address]Dr. Abiel Clement Eosinophils/100 WBC (Bld) 1.9 % Normal 0.9-7.0 [facility] Comment on above: Performed By: #### C BC ####[facility] [address]bqmytvhgj[address] [place], [place] [address]Dr. Abiel Clement Erythrocyte distribution width (RBC) [Ratio] 13.8 % Normal 11.0-15.0 [facility] Comment on above: Performed By: #### C BC ####[facility] Kqfpupkxgr[address] [place], [place] [address]Dr. Abiel Clement Hematocrit (Bld) [Volume fraction] 37.7 % Normal 36.0-48.0 [facility] Comment on above: Performed By: #### C BC ####[facility] Qpcijbfbfg1786 [place] [address]Dr. Abiel Clement Hemoglobin (Bld) [Mass/Vol] 11.7 g/dL Critically low 12.0-16.0 [facility] Comment on above: Performed By: #### C BC ####[facility] Hvodaxbihh5478 [place] [address]Dr. Abiel Clement IG # 0.03 10e3/ul Normal 0.00-0.03 [facility] Comment on above: Performed By: #### C BC ####[facility] Ywmfloirmj8500 [place] [address]Dr. Abiel Clement IG % 0.3 % Normal 0.0-0.5 [facility] Comment on above: Performed By: #### C BC ####[facility] Bsiiehbfjs7154 [place] [address]Dr. Abiel Clement LYMPH # 1.1 103/ul Critically low 1.2-3.8 [facility] Comment on above: Performed By: #### C BC ####[facility] Huzmsuijtx6441 [place] [address]Dr. Abiel Clement Lymphocytes/100 WBC (Bld) 12.0 % Critically low 20.5-60.0 Comment on above: Performed By: #### C BC ####[facility] Emhxtwrvin6492 [place] [address]Dr. Suyapaviviana Clement MANUAL DIFF REQ NO Normal [facility] Comment on above: Performed By: #### C BC ####[facility] Bicvmnjtkr[address] [place], [place] [address]Dr. Abiel Clement MCH (RBC) [Entitic mass] 27.9 pg Normal 26.7-34.0 [facility] Comment on above: Performed By: #### C BC ####[facility] Wyedcyvmaq[address] [place], [place] [address]Dr. Abiel Clement MCHC (RBC) [Mass/Vol] 31.0 g/dL Normal 29.9-35.2 [facility] Comment on above: Performed By: #### C BC ####[facility] Wwrdnuadtz1220 [place] [id number]. Abiel Clement MCV (RBC) [Entitic vol] 89.8 fL Normal 81.0-99.0 [facility] Comment on above: Performed By: #### C BC ####[facility] Jqyqkksova5247 [place] [address]Dr. Abiel Clement MONO # 0.7 103/ul Normal 0.3-0.8 [facility] Comment on above: Performed By: #### C BC ####[facility] Zeursylriu[address] [place], [place] [address]Dr. Abiel Clement Monocytes/100 WBC (Bld) 8.0 % Normal 1.7-12.0 [facility] Comment on above: Performed By: #### C BC ####[facility] [address]dvnsdiof[address] [place], [place] [address]Dr. Abiel Clement NEUT # 6.9 103/ul Critically high 1.4-6.5 [facility] Comment on above: Performed By: #### C BC ####[facility] [address]dnafhsbof[address] [place], [place] [address]Dr. Abiel Clement Neutrophils/100 WBC (Bld) 77.5 % Critically high 43.0-75.0 [facility] Comment on above: Performed By: #### C BC ####[facility] [address]ynqjppcit[address] [place], [place] [address]Dr. Abiel Clement Platelet mean volume (Bld) [Entitic vol] 11.1 fL Normal 9.5-13.5 [facility] Comment on above: Performed By: #### C BC ####[facility] Jgfdpieyci[address] [place], [place] [address]Dr. Abiel Clement PLT 276 103/ul Normal 150-450 [facility] Comment on above: Performed By: #### C BC ####[facility] Ahrkhkllxz[address] [place], [place] [id number]. Abiel Urbano RBC 4.20 106/ul Normal 4.20-5.40 [facility] Comment on above: Performed By: #### C BC ####[facility] Palqsatwvb037[address] [place] [id number]. Abiel Clemnet WBC 8.9 103/ul Normal 4.0-11.0 Comment on above: Performed By: #### C BC ####[facility] Zcenbhfegd4[address] [place] [address]Dr. Abiel Clement POINT OF CARE GLUCOSEon 05-07 Glucose [Mass/Vol] 121 mg/dL Critically high 74-106 [facility] Comment on above: Performed By: #### P OCGLUC ####[facility] Wnptkipjog[address] [place] [address]Dr. Abiel Clement Glucose [Mass/Vol] 303 mg/dL Critically high 74-106 [facility] Comment on above: Performed By: #### P OCGLUC ####[facility] Vdrelurhqu[address] [place] [address]Dr. Abiel Clement PROF 14(COMP METB)on 022 Albumin [Mass/Vol] 2.8 g/dL Critically low 3.4-5.0 [facility] Comment on above: Performed By: #### C MP ####[facility] Tknrtwjcis[address] [place] [address]Dr. Abiel Clement Albumin/Globulin [Mass ratio] 0.7 {ratio} Normal Comment on above: Performed By: #### C MP ####[facility] Wlmpnsdxhu450[address] [place] [address]Dr. Abiel Clement ALP [Catalytic activity/Vol] 174 U/L Critically high 46-116 Comment on above: Performed By: #### C MP ####[facility] Fqkwxrlfmh2435 [place] [address]Dr. Abiel Clement ALT [Catalytic activity/Vol] 14 U/L Normal 14-59 Comment on above: Performed By: #### C MP ####[facility] Rrcwgvztpx23[address] [place] [address]Dr. Abiel Clement Anion gap [Moles/Vol] 14.2 mmol/L Normal [facility] Comment on above: Performed By: #### C MP ####[facility] Jalpjrrxzb25[address] [place] [address]Dr. Abiel Clement AST [Catalytic activity/Vol] 13 U/L Critically low 15-37 Comment on above: Performed By: #### C MP ####[facility] Xlrtbjhvbw[address] [place] [address]Dr. Abiel Clement Bilirubin [Mass/Vol] 0.1 mg/dL Critically low 0.2-1.0 Comment on above: Performed By: #### C MP ####[facility] Xwpwcbpppy[address] [place], [place] [address]Dr. Abiel Clement Calcium [Mass/Vol] 8.9 mg/dL Normal 8.5-10.1 [facility] Comment on above: Performed By: #### C MP ####[facility] Qnlegvujrf5[address] [place], [place] [address]Dr. Abiel Clement Chloride [Moles/Vol] 99 mmol/L Normal 98-107 Comment on above: Performed By: #### C MP ####[facility] Tbpvgfvsys[address] [place], [place] [address]Dr. Abiel Clement CO2 [Moles/Vol] 27.1 mmol/L Normal 21.0-32.0 [facility] Comment on above: Performed By: #### C MP ####[facility] Ervajvwojs[address] [place], [place] [address]Dr. Abiel Clement Creatinine [Mass/Vol] 1.19 mg/dL Critically high 0.55-1.02 Comment on above: Performed By: #### C MP ####[facility] Pqizoywqqc548[address] [place], [place] [address]Dr. Abiel Clement EGFR-AF RWANDAN 56 mL/min/1.73m2 Critically low >=60 [facility] Comment on above: Performed By: #### C MP ####[facility] Wbdaerqhin6[address] [place], [place] [address]Dr. Abiel Urbano EGFR-NON AF RWANDAN 46 mL/min/1.73m2 Critically low >=60 Comment on above: Performed By: #### C MP ####[facility] Wfsuwxfuqf35[address] [place] [address]Dr. Abiel Clement Globulin (S) [Mass/Vol] 4.0 g/dL Normal Comment on above: Performed By: #### C MP ####[facility] Wdfgprapgk3120 [place] [address]Dr. Abiel Clement Glucose [Mass/Vol] 148 mg/dL Critically high 74-106 [facility] Comment on above: Performed By: #### C MP ####[facility] Rzpjslukmm8926 [place] [address]Dr. Abiel Clement Potassium [Moles/Vol] 4.3 mmol/L Normal 3.5-5.1 Comment on above: Performed By: #### C MP ####[facility] Lzckhhzfvr14[address] [place], [place] [address]Dr. Abiel Clement Protein [Mass/Vol] 6.8 g/dL Normal 6.4-8.2 [facility] Comment on above: Performed By: #### C MP ####[facility] Kuqmrztfir86[address] [place], [place] [address]Dr. Abiel Clement Sodium [Moles/Vol] 136 mmol/L Normal 136-145 [facility] Comment on above: Performed By: #### C MP ####[facility] Oqudrqaxkj28[address] [place] [address]Dr. Abiel Clement Urea nitrogen [Mass/Vol] 25.0 mg/dL Critically high 7.0-18.0 Comment on above: Performed By: #### C MP ####[facility] Nkrldqzpni2197 [place] [address]Dr. Abiel Clement Urea nitrogen/Creatinine [Mass ratio] 21.0 mg/mg Normal Comment on above: Performed By: #### C MP ####[facility] Tizhksqtvy[address]107 [place] [address]Dr. Abiel Urbano XR CHEST 1 Von 06-01-2022 XR CHEST 1 V Normal [facility] POINT OF CARE GLUCOSEon 05-07 Glucose [Mass/Vol] 195 mg/dL Critically high 74-106 [facility] Comment on above: Performed By: #### P OCGLUC ####[facility] Zefeurfjus6[address] [place] [address]Dr. Abiel Clement Glucose [Mass/Vol] 236 mg/dL Critically high -106 [facility] Comment on above: Performed By: #### P OCGLUC ####[facility] Jpwkmdcrkz4881 [place] [address]Dr. Abiel Clement Glucose [Mass/Vol] 169 mg/dL Critically high -106 [facility] Comment on above: Performed By: #### P OCGLUC ####[facility] Hwmkfidsxm4799 [place] [address]Dr. Abiel Clement Glucose [Mass/Vol] 162 mg/dL Critically high [facility]106 [facility] Comment on above: Performed By: #### P OCGLUC ####[facility] Avkupwhedj79[address] [place] [address]Dr. Abiel Clement XR FOOT RT MIN 3 VIEWSon XR FOOT RT MIN 3 VIEWS Normal [facility]on 05-07 SARS-CoV-2 (COVID-19) RNA CLARIBEL+probe Ql (Unsp spec) Not detected Normal NOT DETECTED [facility] Comment on above: Result Comment: This test is not yet approved or cleared by the [place] FDA. When there are no FDA-approved or cleared tests available, and other criteria are met, FDA can make tests available under an emergency access mechanism called an Emergency Use Authorization (EUA). The EUA for this test is supported by the [employer] Manager of Health and Human Service's (HHS's) declaration [...] with SARS-CoV-2. Performed By: #### C VDTB ####[facility] Ykhkzxqofz[address] [place] [address]Dr. Abiel Clement PROF CHEM 8 (BAS METB)on Anion gap [Moles/Vol] 11.8 mmol/L Normal [facility] Comment on above: Performed By: #### B MP ####[facility] Fgnrzifdrp7925[address] [place], [place] [address]Dr. Abiel Clement Calcium [Mass/Vol] 9.1 mg/dL Normal 8.5-10.1 [facility] Comment on above: Performed By: #### B MP ####[facility] Hdmolmwsyq4[address] [place], [place] [address]Dr. Abiel Clement Chloride [Moles/Vol] 104 mmol/L Normal 98-107 Comment on above: Performed By: #### B MP ####[facility] Olyfaprrmh[address] [place], [place] [address]Dr. Abiel Clement CO2 [Moles/Vol] 27.6 mmol/L Normal 21.0-32.0 [facility] Comment on above: Performed By: #### B MP ####[facility] Iwasxgaupr27[address] [place], [place] [address]Dr. Abiel Clement Creatinine [Mass/Vol] 0.89 mg/dL Normal 0.55-1.02 Comment on above: Performed By: #### B MP ####[facility] Jbenxnsydp87[address] [place], [place] [address]Dr. Abiel Clement EGFR-AF RWANDAN >60 Normal >=60 [facility] Comment on above: Performed By: #### B MP ####[facility] Wuahqltozw408[address] [place], [place] [address]Dr. Abiel Clement EGFR-NON AF RWANDAN >60 Normal >=60 Comment on above: Performed By: #### B MP ####[facility] Ofcbrctppu92[address] [place], [place] [address]Dr. Abiel Clement Glucose [Mass/Vol] 83 mg/dL Normal 74-106 [facility] Comment on above: Performed By: #### B MP ####[facility] Ivgcnzyutm1694 [place] [address]Dr. Abiel Clement Potassium [Moles/Vol] 4.4 mmol/L Normal 3.5-5.1 Comment on above: Performed By: #### B MP ####[facility] Wiqaxzvsvd1936 [place] [address]Dr. Abiel Clement Sodium [Moles/Vol] 139 mmol/L Normal 136-145 [facility] Comment on above: Performed By: #### B MP ####[facility] Ctlcjspron[address] [place], [place] [address]Dr. Abiel Clement Urea nitrogen [Mass/Vol] 18.0 mg/dL Normal 7.0-18.0 Comment on above: Performed By: #### B MP ####[facility] Kmvptqwxkr34[address] [place], [place] [address]Dr. Abiel Clement Urea nitrogen/Creatinine [Mass ratio] 20.2 mg/mg Normal [facility] Comment on above: Performed By: #### B MP ####[facility] Lgoclvdinl5[address] [place], [place] [address]Dr. Abiel Clement CT CSPINE WO CONon 2 CT CSPINE WO CON Normal [facility] CT HEAD WO CONon 05-19-2022 CT HEAD WO CON Normal [facility] XR HIP RT 2 3V W PELVISon XR HIP RT 2 3V W PELVIS Normal [facility] CT FOOT RT WO CONon 05-13-[address] FOOT RT WO CON Normal [facility] BLOOD CULTURE ID PANELon A. baumannii Not detected Normal NOT DETECTED [facility] Comment on above: Performed By: #### B CID2 ####[facility] Tpnpjouphv23[address] [place] [address]Dr. Suyapaviviana Urbano Bacteriodes fragilis Not detected Normal NOT DETECTED [facility] Comment on above: Performed By: #### B CID2 ####[facility] Tffrfjdzwt3489 [place] [address]Dr. Yilan Clement BCID CONTROLS PASSED Normal [facility] Comment on above: Performed By: #### B CID2 ####[facility] Dgulqietna7064 [place] [address]Dr. Yiviviana Clement BCIDBTHD BLOOD CULTURE BOTTLE INFORMATION [facility] Comment on above: Performed By: #### B CID2 ####[facility] Yiffkxasha1556 [place] [address]Dr. Yiviviana Clement BCIDHD1 ANTIMICROBIAL RESISTANCE GENES [facility] Comment on above: Performed By: #### B CID2 ####[facility] Gmeipnctws9[address] [place] [address]Dr. Yiviviana Clement BCIDHD2 SEE BELOW [facility] Comment on above: Result Comment: Note : Antimicrobial resitance can occur via multiple mechanisms. A Not Detected result for the Scan[employer] antomicrobial resistance gene assays does not indicate antimicrobial susceptibility. Subculturing is required for species identification and susceptibility testing of isolates. Performed By: #### B CID2 ####[facility] Tbspewerrg0124 [place] [address]Dr. Abiel Clement BCIDHD3 Positive [facility] Comment on above: Performed By: #### B CID2 ####[facility] Ilgtyzeohc2203 [place] [address]Dr. Yiviviana Clement BCIDHD4 Negative [facility] Comment on above: Performed By: #### B CID2 ####[facility] Cocxolpfnt8849 [place] [address]Dr. Yiviviana Clement BCIDHD5 YEAST Normal Comment on above: Performed By: #### B CID2 ####[facility] Vdnlrxzmun5016 [place] [address]Dr. Yilan Clement Bottle Set: Set 1 [facility] Comment on above: Performed By: #### B CID2 ####[facility] Hnqchurfgn8766 [place] [address]Dr. Yilan Clement Bottle: Aerobic [facility] Comment on above: Performed By: #### B CID2 ####[facility] Tbneebczds9890 [place] [address]Dr. Yilan Clement C. neoformans/gattii Not detected Normal NOT DETECTED [facility] Comment on above: Performed By: #### B CID2 ####[facility] Imteroytya5168 [place] [address]Dr. Yilan Clement Sakshi albicans Not detected Normal NOT DETECTED [facility] Comment on above: Performed By: #### B CID2 ####[facility] Hprmntauem[address] [place], [place] [address]Dr. Yilan Clement Sakshi auris Not detected Normal NOT DETECTED [facility] Comment on above: Performed By: #### B CID2 ####[facility] Uvyygapmrv4[address] [place], [place] [address]Dr. Yiviviana Clement Sakshi glabrata Not detected Normal NOT DETECTED [facility] Comment on above: Performed By: #### B CID2 ####[facility] Jwpzuoamop19[address] [place], [place] [address]Dr. Yilan Clement Sakshi Krusei Not detected Normal NOT DETECTED [facility] Comment on above: Performed By: #### B CID2 ####[facility] Lacuzercne[address] [place], [place] [address]Dr. Yilan Clement Sakshi Parapsilosis Not detected Normal NOT DETECTED [facility] Comment on above: Performed By: #### B CID2 ####[facility] Tfgniodcyp68[address] [place], [place] [address]Dr. Yilan Clement Sakshi Tropicalis Not detected Normal NOT DETECTED [facility] Comment on above: Performed By: #### B CID2 ####[facility] Zofugmhpvj00[address] [place], [place] [address]Dr. Abiel Clement CTX-M Resistant Gene Not Applicable Normal NOT DETECTE D Comment on above: Performed By: #### B CID2 ####[facility] Ljhsnuwiox27[address] [place] [address]Dr. Yiviviana Clement E. Cloacae complex Not detected Normal NOT DETECTED [facility] Comment on above: Performed By: #### B CID2 ####[facility] Iswmcxjcon8[address] [place], [place] [address]Dr. Abiel Clement E. faecalis Not detected Normal NOT DETECTED [facility] Comment on above: Performed By: #### B CID2 ####[facility] Uxavqsthvf5[address] [place], [place] [address]Dr. Abiel Clement E. faecium Not detected Normal NOT DETECTED [facility] Comment on above: Performed By: #### B CID2 ####[facility] Fbskmzqdji6922[address] [place], [place] [address]Dr. Abiel Clement Enterobacteriaceae Not detected Normal NOT DETECTED [facility] Comment on above: Performed By: #### B CID2 ####[facility] Wcvjldhprc6[address] [place], [place] [address]Dr. Abiel Clement Escherichia coli Not detected Normal NOT DETECTED [facility] Comment on above: Performed By: #### B CID2 ####[facility] Vyglnjczrg86[address] [place], [place] [address]Dr. Abiel Clement H. influenzae Not detected Normal NOT DETECTED [facility] Comment on above: Performed By: #### B CID2 ####[facility] Suwijstxsd[address] [place], [place] [address]Dr. Abiel Clement IMP Resistant Gene Not Applicable Normal NOT DETECTED [facility] Comment on above: Performed By: #### B CID2 ####[facility] Xsqfkjkxon6[address] [place], [place] [address]Dr. Abiel Clement K. oxytoca Not detected Normal NOT DETECTED [facility] Comment on above: Performed By: #### B CID2 ####[facility] Ucmktirjco39[address] [place], [place] [address]Dr. Abiel Clement K. pneumoniae Not detected Normal NOT DETECTED [facility] Comment on above: Performed By: #### B CID2 ####[facility] Gwbwaoyljb75[address] [place], [place] [address]Dr. Abiel Clement Klebsiella aerogenes Not detected Normal NOT DETECTED [facility] Comment on above: Performed By: #### B CID2 ####[facility] Nurcmclypo2330[address] [place], [place] [address]Dr. Abiel Clement KPC Resistant Gene Not detected Normal NOT DETECTED [facility] Comment on above: Performed By: #### B CID2 ####[facility] Rbbrxprsgj749[address] [place], [place] [address]Dr. Abiel Clement List. monocytogenes Not detected Normal NOT DETECTED [facility] Comment on above: Performed By: #### B CID2 ####[facility] Zldkiwobku3513[address] [place], [place] [address]Dr. Abiel Clement Mcr-1 Resistant Gene Not Applicable Normal NOT DETECTE D Comment on above: Performed By: #### B CID2 ####[facility] Bxgdtfisxt[address] [place], [place] [address]Dr. Abiel Clement mecA/C Not Applicable Normal NOT DETECTED [facility] Comment on above: Performed By: #### B CID2 ####[facility] Zcjhmdzrkp11[address] [place], [place] [address]Dr. Abiel Clement mecA/C MREJ Not Applicable Normal NOT DETECTED [facility] Comment on above: Performed By: #### B CID2 ####[facility] Itkjeisphb60[address] [place], [place] [address]Dr. Abiel Clement N. meningitidis Not detected Normal NOT DETECTED [facility] Comment on above: Performed By: #### B CID2 ####[facility] Jchqdanpns2912[address] [place], [place] [address]Dr. Abiel Clement NDM Resistant Gene Not Applicable Normal NOT DETECTED [facility] Comment on above: Performed By: #### B CID2 ####[facility] Mnktmylury9[address] [place], [place] [address]Dr. Abiel Clement Oxa-48-like Not Applicable Normal NOT DETECTED [facility] Comment on above: Performed By: #### B CID2 ####[facility] Wnwwjvjvkv18[address] [place], [place] [address]Dr. Abiel Clement Proteus Not detected Normal NOT DETECTED [facility] Comment on above: Performed By: #### B CID2 ####[facility] Uovdpjpvph345[address] [place], [place] [address]Dr. Abiel Clement Pseud. aeruginosa Not detected Normal NOT DETECTED [facility] Comment on above: Performed By: #### B CID2 ####[facility] Ghnefjhfog424[address] [place], [place] [address]Dr. Abiel Clement S. maltophilia Not detected Normal NOT DETECTED [facility] Comment on above: Performed By: #### B CID2 ####[facility] Rhcsyvdkns24[address] [place], [place] [address]Dr. Abiel Clement Salmonella Not detected Normal NOT DETECTED [facility] Comment on above: Performed By: #### B CID2 ####[facility] Mayknitwuk9[address] [place], [place] [address]Dr. Abiel Clement Seratia marcescens Not detected Normal NOT DETECTED [facility] Comment on above: Performed By: #### B CID2 ####[facility] Zikazanidn256[address] [place], [place] [address]Dr. Abiel Clement Site: R A/c Normal [facility] Comment on above: Performed By: #### B CID2 ####[facility] Kruokpnbce9407[address] [place], [place] [address]Dr. Abiel Clement Staph. aureus Not detected Normal NOT DETECTED [facility] Comment on above: Performed By: #### B CID2 ####[facility] Fvknurnacs966[address] [place], [place] [address]Dr. Abiel Clement Staph. epidermidis Not detected Normal NOT DETECTED [facility] Comment on above: Performed By: #### B CID2 ####[facility] Kyampdxdfp3306[address] [place], [place] [address]Dr. Abiel Clement Staph. lugdunensis Not detected Normal NOT DETECTED [facility] Comment on above: Performed By: #### B CID2 ####[facility] Jnvtizoifg27[address] [place], [place] [address]Dr. Abiel Clement Staphylococcus Not detected Normal NOT DETECTED [facility] Comment on above: Performed By: #### B CID2 ####[facility] Ckwqqmfxrn8832[address] [place], [place] [address]Dr. Abiel Clement Strep. agalactiae Not detected Normal NOT DETECTED [facility] Comment on above: Performed By: #### B CID2 ####[facility] Uauotqaxbt906[address] [place], [place] [address]Dr. Abiel Clement Strep. pneumoniae Not detected Normal NOT DETECTED Comment on above: Performed By: #### B CID2 ####[facility] Hjjqvykdsm158[address] [place], [place] [address]Dr. Abiel Clement Strep. pyogenes Not detected Normal NOT DETECTED [facility] Comment on above: Performed By: #### B CID2 ####[facility] Iikptjztwv9639[address] [place], [place] [address]Dr. Abiel Clement Streptococcus Detected Abnormal NOT DETECTED [facility] Comment on above: Performed By: #### B CID2 ####[facility] Nutlrhufxp94[address] [place], [place] [address]Dr. Abiel Clement Jarvis/B Resist. Gene Not detected Normal NOT DETECTED [facility] Comment on above: Performed By: #### B CID2 ####[facility] Ewzcovtsbm300[address] [place], [place] [address]Dr. Abiel Clement VIM Resistant Gene Not Applicable Normal NOT DETECTED [facility] Comment on above: Performed By: #### B CID2 ####[facility] Gjopoyjybb[address] [place], [place] [address]Dr. Abiel Clement BNPon 04-30-2022 Natriuretic peptide B (Bld) [Mass/Vol] 127.0 pg/mL Normal <=900.0 [facility] Comment on above: Performed By: #### B FACILITIES PAINTER, CMP, HSTROPN ####[facility] Gfqecpogvg38[address] [place], [place] [address]Dr. Abiel Clement CBC AUTO DIFFon 04-30-2022 BASO # 0.1 103/ul Normal 0.0-0.1 Comment on above: Performed By: #### C BC ####[facility] Fssljbqcaq8636[address] [place], [place] [address]Dr. Abiel Clement Basophils/100 WBC (Bld) 0.6 % Normal 0.2-2.0 [facility] Comment on above: Performed By: #### C BC ####[facility] Dchlhwldkh8271 [place] [address]Dr. Abiel Clement EO # 0.3 103/ul Normal 0.0-0.7 [facility] Comment on above: Performed By: #### C BC ####[facility] Qdoazmclwy60[address] [place], [place] [address]Dr. Abiel Clement Eosinophils/100 WBC (Bld) 2.8 % Normal 0.9-7.0 [facility] Comment on above: Performed By: #### C BC ####[facility] Hrlpddztdj9[address] [place], [place] [address]Dr. Abiel Clement Erythrocyte distribution width (RBC) [Ratio] 12.9 % Normal 11.0-15.0 Comment on above: Performed By: #### C BC ####[facility] Niaveaprlj5[address] [place], [place] [address]Dr. Abiel Clement Hematocrit (Bld) [Volume fraction] 38.7 % Normal 36.0-48.0 Comment on above: Performed By: #### C BC ####[facility] Xcpjnbotmy8184[address] [place], [place] [address]Dr. Abiel Clement Hemoglobin (Bld) [Mass/Vol] 12.5 g/dL Normal 12.0-16.0 [facility] Comment on above: Performed By: #### C BC ####[facility] Rhdthjcutf9513[address] [place], [place] [address]Dr. Abiel Clement IG # 0.03 10e3/ul Normal 0.00-0.03 [facility] Comment on above: Performed By: #### C BC ####[facility] Uumorjfobj20[address] [place], [place] [address]Dr. Abiel Clement IG % 0.3 % Normal 0.0-0.5 [facility] Comment on above: Performed By: #### C BC ####[facility] Xcsypacged65[address] [place], [place] [address]Dr. Abiel Clement LYMPH # 1.6 103/ul Normal 1.2-3.8 [facility] Comment on above: Performed By: #### C BC ####[facility] Uamajjcwih0456 [place] [address]Dr. Abiel Clement Lymphocytes/100 WBC (Bld) 15.0 % Critically low 20.5-60.0 Comment on above: Performed By: #### C BC ####[facility] Wbxyassver3210 [place] [address]Dr. Abiel Urbano MANUAL DIFF REQ NO Normal [facility] Comment on above: Performed By: #### C BC ####[facility] Nxghpwmnkj9732 [place] [address]Dr. Abiel Urbano MCH (RBC) [Entitic mass] 28.9 pg Normal 26.7-34.0 [facility] Comment on above: Performed By: #### C BC ####[facility] Pqplwverue[address] [place], [place] [address]Dr. Abiel Urbano MCHC (RBC) [Mass/Vol] 32.3 g/dL Normal 29.9-35.2 [facility] Comment on above: Performed By: #### C BC ####[facility] Paxwmdlyug5481 [place] [address]Dr. Abiel Clement MCV (RBC) [Entitic vol] 89.6 fL Normal 81.0-99.0 [facility] Comment on above: Performed By: #### C BC ####[facility] Fmyycsyxam[address] [place], [place] [address]Dr. Abiel Urbano MONO # 0.8 103/ul Normal 0.3-0.8 [facility] Comment on above: Performed By: #### C BC ####[facility] [address]ux[address]teeywh[address] [place], [place] [address]Dr. Abiel Clement Monocytes/100 WBC (Bld) 7.2 % Normal 1.7-12.0 [facility] Comment on above: Performed By: #### C BC ####[facility] Fjjyajnrgh[address] [place], [place] [address]Dr. Suyapaviviana Clement NEUT # 7.9 103/ul Critically high 1.4-6.5 [facility] Comment on above: Performed By: #### C BC ####[facility] [address]ikz[address] [place] [id number]. Abiel Clement Neutrophils/100 WBC (Bld) 74.1 % Normal 43.0-75.0 Comment on above: Performed By: #### C BC ####[facility] Mquwbifott4[address] [place] [id number]. Abiel Clement Platelet mean volume (Bld) [Entitic vol] 10.9 fL Normal 9.5-13.5 Comment on above: Performed By: #### C BC ####[facility] Pntngcwztl92[address] [place] [phone]. Abiel Clement PLT 308 103/ul Normal 150-450 [facility] Comment on above: Performed By: #### C BC ####[facility] Nuuotdcwft8[address] [place] [id number]. Abiel Clement RBC 4.32 106/ul Normal 4.20-5.40 [facility] Comment on above: Performed By: #### C BC ####[facility] Qeseexheci2171 [place] [id number]. Abiel Clement WBC 10.6 103/ul Normal 4.0-11.0 [facility] Comment on above: Performed By: #### C BC ####[facility] Qhjklfjbzt76[address] [place] [id number]. Abiel Clement Covid-19 PCR (CVDTB)on 04-06 SARS-CoV-2 (COVID-19) RNA CLARIBEL+probe Ql (Unsp spec) Not detected Normal NOT DETECTED [facility] Comment on above: Result Comment: When [...] for this test is supported by the [employer] Manager of Health and Human Service's declaration that [...] be used). Performed By: #### C VDTB ####[facility] [address] [place] [address]Dr. Abiel Clement LACTATE/LACTIC ACIDon 2021 Lactate [Moles/Vol] 2.3 mmol/L Critically high 0.4-1.9 Comment on above: Performed By: #### L ACT ####[facility] Imsbsdvpjt[address] [place], [place] [address]Dr. Abiel Clement Lactate [Moles/Vol] 3.3 mmol/L Critically high 0.4-1.9 Comment on above: Performed By: #### L ACT ####[facility] Sythxffeyz[address] [place], [place] [address]Dr. Abiel Clement PROF 14(COMP METB)on 022 Albumin [Mass/Vol] 3.0 g/dL Critically low 3.4-5.0 [facility] Comment on above: Performed By: #### B FACILITIES PAINTER, CMP, HSTROPN ####[facility] Znqinrqeqe24[address] [place], [place] [address]Dr. Abiel Clement Albumin/Globulin [Mass ratio] 0.7 {ratio} Normal [facility] Comment on above: Performed By: #### B FACILITIES PAINTER, CMP, HSTROPN ####[facility] [address]zovx[address] [place] [address]Dr. Abiel Clement ALP [Catalytic activity/Vol] 218 U/L Critically high 46-116 [facility] Comment on above: Performed By: #### B FACILITIES PAINTER, CMP, HSTROPN ####[facility] Z[address]zhygzbmi5[address] [place] [address]Dr. Abiel Clement ALT [Catalytic activity/Vol] 29 U/L Normal 14-59 [facility] Comment on above: Performed By: #### B FACILITIES PAINTER, CMP, HSTROPN ####[facility] Hqcunlhlui6[address] [place] [address]Dr. Abiel Clement Anion gap [Moles/Vol] 14.3 mmol/L Normal [facility] Comment on above: Performed By: #### B FACILITIES PAINTER, CMP, HSTROPN ####[facility] Acjbevrigk[address] [place] [address]Dr. Abiel Clement AST [Catalytic activity/Vol] 20 U/L Normal 15-37 Comment on above: Performed By: #### B FACILITIES PAINTER, CMP, HSTROPN ####[facility] Ajxrcgllud[address] [place], [place] [address]Dr. Abiel Clement Bilirubin [Mass/Vol] 0.3 mg/dL Normal 0.2-1.0 Comment on above: Performed By: #### B FACILITIES PAINTER, CMP, HSTROPN ####[facility] Thgfewewqi64[address] [place], [place] [address]Dr. Abiel Clement Calcium [Mass/Vol] 9.2 mg/dL Normal 8.5-10.1 [facility] Comment on above: Performed By: #### B FACILITIES PAINTER, CMP, HSTROPN ####[facility] [address]fejjmtzpm35[address] [place] [address]Dr. Abiel Clement Chloride [Moles/Vol] 98 mmol/L Normal 98-107 Comment on above: Performed By: #### B FACILITIES PAINTER, CMP, HSTROPN ####[facility] Hepbxzwmaj[address] [place], [place] [address]Dr. Abiel Clement CO2 [Moles/Vol] 26.5 mmol/L Normal 21.0-32.0 [facility] Comment on above: Performed By: #### B FACILITIES PAINTER, CMP, HSTROPN ####[facility] Ajssbmvkmm79[address] [place] [address]Dr. Abiel Clement Creatinine [Mass/Vol] 1.10 mg/dL Critically high 0.55-1.02 Comment on above: Performed By: #### B FACILITIES PAINTER, CMP, HSTROPN ####[facility] Ihxdeylktz40[address] [place] [id number]. Abiel Clement EGFR-AF RWANDAN >60 Normal >=60 [facility] Comment on above: Performed By: #### B FACILITIES PAINTER, CMP, HSTROPN ####[facility] Sligzxidxy[address] [place] [address]Dr. Abiel Clement EGFR-NON AF RWANDAN 50 mL/min/1.73m2 Critically low >=60 Comment on above: Performed By: #### B FACILITIES PAINTER, CMP, HSTROPN ####[facility] Ecpvkpbtvm5435 [place] [address]Dr. Abiel Clement Globulin (S) [Mass/Vol] 4.3 g/dL Normal Comment on above: Performed By: #### B FACILITIES PAINTER, CMP, HSTROPN ####[facility] Zckrkusqgg4[address] [place], [place] [address]Dr. Abiel Clement Glucose [Mass/Vol] 338 mg/dL Critically high 74-106 T [facility] Comment on above: Performed By: #### B FACILITIES PAINTER, CMP, HSTROPN ####[facility] Onevutrhyp[address] [place], [place] [address]Dr. Abiel Clement Potassium [Moles/Vol] 3.8 mmol/L Normal 3.5-5.1 Comment on above: Performed By: #### B FACILITIES PAINTER, CMP, HSTROPN ####[facility] Ljvwfltkvt68[address] [place] [address]Dr. Abiel Clement Protein [Mass/Vol] 7.3 g/dL Normal 6.4-8.2 [facility] Comment on above: Performed By: #### B FACILITIES PAINTER, CMP, HSTROPN ####[facility] Bojgtmeqaj9[address] [place], [place] [address]Dr. Abiel Clement Sodium [Moles/Vol] 135 mmol/L Critically low 136-145 [facility] Comment on above: Performed By: #### B FACILITIES PAINTER, CMP, HSTROPN ####[facility] [address] [place] [id number]. Abiel Clement Urea nitrogen [Mass/Vol] 23.0 mg/dL Critically high 7.0-18.0 [facility] Comment on above: Performed By: #### B FACILITIES PAINTER, CMP, HSTROPN ####[facility] Saegkihvvp18[address] [place] [phone]. Abiel Clement Urea nitrogen/Creatinine [Mass ratio] 20.9 mg/mg Normal [facility] Comment on above: Performed By: #### B FACILITIES PAINTER, CMP, HSTROPN ####[facility] Lhmdzehyqp24[address] [place] [phone]. Abiel Clement TROPONIN, HIGH SENSITIVITYon 04-30-2022 HSTROP 3.8 pg/mL Critically low 4.0-51.3 [facility] Comment on above: Result Comment: CUT- OFF POINTS HAVE BEEN ESTABLISHED BASED ON THE FOURTH UNIVERSAL DEFINITIONS OF MYOCARDIALINFARCTION. THE UPPER REFERENCE LIMIT (URL) OF TROPONIN, DEFINED THE 99TH PERCENTILE OFcTnI DISTRIBUTION IN A REFERENCE POPULATION, HAS BEEN CONFIRMED THE DECISION THRESHOLDFOR OR DIAGNOSIS. Performed By: #### H STROPN ####[facility] [address]fjiscfb[address] [place] [address]Dr. Abiel Clmeent HSTROP 4.0 pg/mL Normal 4.0-51.3 [facility] Comment on above: Result Comment: CUT- OFF POINTS HAVE BEEN ESTABLISHED BASED ON THE FOURTH UNIVERSAL DEFINITIONS OF MYOCARDIALINFARCTION. THE UPPER REFERENCE LIMIT (URL) OF TROPONIN, DEFINED THE 99TH PERCENTILE OFcTnI DISTRIBUTION IN A REFERENCE POPULATION, HAS BEEN CONFIRMED THE DECISION THRESHOLDFOR OR DIAGNOSIS. Performed By: #### B FACILITIES PAINTER, CMP, HSTROPN ####[facility] Okxizjndmy17[address] [place] [phone]. Abiel Clement XR CHEST 1 Von 04-30-2022 XR CHEST 1 V Normal [facility] BNPon 03-15-2022 Natriuretic peptide B (Bld) [Mass/Vol] 2586.0 pg/mL Critically high <=900.0 [facility] Comment on above: Result Comment: repe ated Performed By: #### C MP, BNP, HSTROPN ####[facility] Xaxsrebybu23[address] [place] [id number]. Abiel Clement CBC AUTO DIFFon 03-15-2022 BASO # 0.0 103/ul Normal 0.0-0.1 [facility] Comment on above: Performed By: #### C BC ####[facility] Qipgsfrwwa7186 [place] [phone]. Suyapaviviana Clement Basophils/100 WBC (Bld) 0.4 % Normal 0.2-2.0 [facility] Comment on above: Performed By: #### C BC ####[facility] Muskczchyr[address] [place], [place] [address]Dr. Abiel Urbano EO # 0.1 103/ul Normal 0.0-0.7 [facility] Comment on above: Performed By: #### C BC ####[facility] Xacbnxbjrx[address] [place], [place] [address]Dr. Suyapaviviana Clement Eosinophils/100 WBC (Bld) 1.8 % Normal 0.9-7.0 [facility] Comment on above: Performed By: #### C BC ####[facility] Vvnqpzyywp[address] [place], [place] [address]Dr. Abiel Clement Erythrocyte distribution width (RBC) [Ratio] 13.7 % Normal 11.0-15.0 [facility] Comment on above: Performed By: #### C BC ####[facility] Fyybrbhlxh[address] [place], [place] [address]Dr. Abiel Clement Hematocrit (Bld) [Volume fraction] 29.7 % Critically low 36.0-48.0 [facility] Comment on above: Performed By: #### C BC ####[facility] Cuwgoskaaw[address] [place], [place] [address]Dr. Abiel Clement Hemoglobin (Bld) [Mass/Vol] 9.5 g/dL Critically low 12.0-16.0 [facility] Comment on above: Performed By: #### C BC ####[facility] Tazuw[address]fb[address] [place], [place] [address]Dr. Abiel Clement IG # 0.02 10e3/ul Normal 0.00-0.03 [facility] Comment on above: Performed By: #### C BC ####[facility] Xqmoimmuat7679 [place] [phone]. Suyapaviviana Clement IG % 0.3 % Normal 0.0-0.5 Comment on above: Performed By: #### C BC ####[facility] Xixcmkdaue4310 [place] [phone]. Abiel Urbano LYMPH # 1.6 103/ul Normal 1.2-3.8 [facility] Comment on above: Performed By: #### C BC ####[facility] Dhcyyipiol3796 [place] [address]Dr. Suyapaviviana Clement Lymphocytes/100 WBC (Bld) 20.1 % Critically low 20.5-60.0 Comment on above: Performed By: #### C BC ####[facility] Hgnyufdnib9513 [place] [address]Dr. Abiel Clement MANUAL DIFF REQ NO Normal [facility] Comment on above: Performed By: #### C BC ####[facility] Kfqfhnbbma6562 [place] [phone]. Abiel Urbano MCH (RBC) [Entitic mass] 29.6 pg Normal 26.7-34.0 Comment on above: Performed By: #### C BC ####[facility] Nwjgpmswwu0619 [place] [address]Dr. Abiel Urbano MCHC (RBC) [Mass/Vol] 32.0 g/dL Normal 29.9-35.2 [facility] Comment on above: Performed By: #### C BC ####[facility] Fvphgbndxf1710 [place] [address]Dr. Abiel Urbano MCV (RBC) [Entitic vol] 92.5 fL Normal 81.0-99.0 [facility] Comment on above: Performed By: #### C BC ####[facility] Ycgglnpioz[address] [place], [place] [address]Dr. Abiel Clement MONO # 0.6 103/ul Normal 0.3-0.8 Comment on above: Performed By: #### C BC ####[facility] Bbdfbrrnoa3866 [place] [phone]. Abiel Clement Monocytes/100 WBC (Bld) 7.1 % Normal 1.7-12.0 Comment on above: Performed By: #### C BC ####[facility] Vbdmmtjxae8692 [place] [phone]. Abiel Clement NEUT # 5.5 103/ul Normal 1.4-6.5 Comment on above: Performed By: #### C BC ####[facility] Wroelnftjo9304 [place] [phone]. Abiel Clement Neutrophils/100 WBC (Bld) 70.3 % Normal 43.0-75.0 Comment on above: Performed By: #### C BC ####[facility] Aasiapmdle5619 [place] [phone]. Abiel Clement Platelet mean volume (Bld) [Entitic vol] 10.5 fL Normal 9.5-13.5 Comment on above: Performed By: #### C BC ####[facility] Pibmkiumuw7902 [place] [id number]. Abiel Clement PLT 250 103/ul Normal 150-450 Comment on above: Performed By: #### C BC ####[facility] Qwnqilkdjo5697 [place] [phone]. Abiel Clement RBC 3.21 106/ul Critically low 4.20-5.40 [facility] Comment on above: Performed By: #### C BC ####[facility] Yyecrjvtjc8551 [place] [phone]. Abiel Clement WBC 7.9 103/ul Normal 4.0-11.0 Comment on above: Performed By: #### C BC ####[facility] Hjoylffsif2346 [place] [id number] Abiel Urbano PROF 14(COMP METB)on 022 Albumin [Mass/Vol] 2.2 g/dL Critically low 3.4-5.0 [facility] Comment on above: Performed By: #### C MP, BNP, HSTROPN ####[facility] Wckwoqtmgo5248 [place] [address]Dr. Abiel Clement Albumin/Globulin [Mass ratio] 0.6 {ratio} Normal Comment on above: Performed By: #### C MP, BNP, HSTROPN ####[facility] Adsjtmwamy4314 [place] [address]Dr. Abiel Clement ALP [Catalytic activity/Vol] 112 U/L Normal 46-116 Comment on above: Performed By: #### C MP, BNP, HSTROPN ####[facility] Xjxlfrkwim[address] [place], [place] [address]Dr. Abiel Clement ALT [Catalytic activity/Vol] 19 U/L Normal 14-59 Comment on above: Performed By: #### C MP, BNP, HSTROPN ####[facility] [address]nwncadazn[address] [place], [place] [address]Dr. Abiel Clement Anion gap [Moles/Vol] 12.2 mmol/L Normal [facility] Comment on above: Performed By: #### C MP, BNP, HSTROPN ####[facility] Dfsasybdfu[address] [place], [place] [address]Dr. Abiel Clement AST [Catalytic activity/Vol] 15 U/L Normal 15-37 Comment on above: Performed By: #### C MP, BNP, HSTROPN ####[facility] Qhktperslo[address] [place], [place] [address]Dr. Abiel Clement Bilirubin [Mass/Vol] 0.3 mg/dL Normal 0.2-1.0 Comment on above: Performed By: #### C MP, BNP, HSTROPN ####[facility] Irwcyyfzmk[address] [place], [place] [address]Dr. Abiel Urbano Calcium [Mass/Vol] 8.6 mg/dL Normal 8.5-10.1 [facility] Comment on above: Performed By: #### C MP, BNP, HSTROPN ####[facility] Amzzoiiosd7416 [place] [address]Dr. Abiel Clement Chloride [Moles/Vol] 104 mmol/L Normal 98-107 [facility] Comment on above: Performed By: #### C MP, BNP, HSTROPN ####[facility] Qlmfszknic7304 [place] [address]Dr. Abiel Clement CO2 [Moles/Vol] 25.3 mmol/L Normal 21.0-32.0 [facility] Comment on above: Performed By: #### C MP, BNP, HSTROPN ####[facility] Oawqzpbnmc6212 [place] [address]Dr. Abiel Clement Creatinine [Mass/Vol] 0.98 mg/dL Normal 0.55-1.02 Comment on above: Performed By: #### C MP, BNP, HSTROPN ####[facility] H[address]ocsrshts[address] [place], [place] [address]Dr. Abiel Clement EGFR-AF RWANDAN >60 Normal >=60 [facility] Comment on above: Performed By: #### C MP, BNP, HSTROPN ####[facility] Oljaatsjml[address] [place], [place] [address]Dr. Abiel Clement EGFR-NON AF RWANDAN 58 mL/min/1.73m2 Critically low >=60 Comment on above: Performed By: #### C MP, BNP, HSTROPN ####[facility] Wcjoyxokwz7102 [place] [address]Dr. Abiel Clement Globulin (S) [Mass/Vol] 3.7 g/dL Normal Comment on above: Performed By: #### C MP, BNP, HSTROPN ####[facility] Uumonizkrv[address] [place], [place] [address]Dr. Abiel Clement Glucose [Mass/Vol] 279 mg/dL Critically high 74-106 T [facility] Comment on above: Performed By: #### C MP, BNP, HSTROPN ####[facility] Xcjlskkjpe7587 [place] [address]Dr. Abiel Clement Potassium [Moles/Vol] 3.5 mmol/L Normal 3.5-5.1 Comment on above: Performed By: #### C MP, BNP, HSTROPN ####[facility] Ubjrgroawi7358 [place] [address]Dr. Abiel Clement Protein [Mass/Vol] 5.9 g/dL Critically low 6.4-8.2 [facility] Comment on above: Performed By: #### C MP, BNP, HSTROPN ####[facility] Xfbdqlktcp2608 [place] [address]Dr. Abiel Clement Sodium [Moles/Vol] 138 mmol/L Normal 136-145 [facility] Comment on above: Performed By: #### C MP, BNP, HSTROPN ####[facility] Huvttzcjia7450 [place] [address]Dr. Abiel Clement Urea nitrogen [Mass/Vol] 23.0 mg/dL Critically high 7.0-18.0 Comment on above: Performed By: #### C MP, BNP, HSTROPN ####[facility] Hecvjntmec8371 [place] [address]Dr. Abiel Clement Urea nitrogen/Creatinine [Mass ratio] 23.5 mg/mg Normal Comment on above: Performed By: #### C MP, BNP, HSTROPN ####[facility] Hreassxciu7239 [place] [address]Dr. Abiel Clement TROPONIN, HIGH SENSITIVITYon 03-15-2022 HSTROP 9.0 pg/mL Normal 4.0-51.3 Comment on above: Result Comment: CUT- OFF POINTS HAVE BEEN ESTABLISHED BASED ON THE FOURTH UNIVERSAL DEFINITIONS OF MYOCARDIALINFARCTION. THE UPPER REFERENCE LIMIT (URL) OF TROPONIN, DEFINED THE 99TH PERCENTILE OFcTnI DISTRIBUTION IN A REFERENCE POPULATION, HAS BEEN CONFIRMED THE DECISION THRESHOLDFOR OR DIAGNOSIS. Performed By: #### C MP, BNP, HSTROPN ####[facility] Woyzzxltmu0058 [place] [address]Dr. Abiel Clement BNPon 03-14-2022 Natriuretic peptide B (Bld) [Mass/Vol] 3438.0 pg/mL Critically high <=900.0 [facility] Comment on above: Performed By: #### H STROPN, BNP, CMP ####[facility] Gwqxxbtjne05[address] [place] [address]Dr. Abiel Clement CBC AUTO DIFFon 03-14-2022 BASO # 0.0 103/ul Normal 0.0-0.1 [facility] Comment on above: Performed By: #### C BC ####[facility] Edaduconjc[address] [place], [place] [address]Dr. Suyapaviviana Clement Basophils/100 WBC (Bld) 0.4 % Normal 0.2-2.0 [facility] Comment on above: Performed By: #### C BC ####[facility] Fqcejmrgxl[address] [place], [place] [address]Dr. Suyapaviviana Clement EO # 0.1 103/ul Normal 0.0-0.7 [facility] Comment on above: Performed By: #### C BC ####[facility] Crdvfzumih[address] [place], [place] [address]Dr. Suyapaviviana Clement Eosinophils/100 WBC (Bld) 0.9 % Normal 0.9-7.0 [facility] Comment on above: Performed By: #### C BC ####[facility] Mtqoyxblzy[address] [place], [place] [address]Dr. Suyapaviviana Clement Erythrocyte distribution width (RBC) [Ratio] 13.5 % Normal 11.0-15.0 [facility] Comment on above: Performed By: #### C BC ####[facility] Pmypeifler[address] [place], [place] [address]Dr. Suyapaviviana Clement Hematocrit (Bld) [Volume fraction] 29.5 % Critically low 36.0-48.0 [facility] Comment on above: Performed By: #### C BC ####[facility] [address]btirzogtb[address] [place], [place] [address]Dr. Abiel Clement Hemoglobin (Bld) [Mass/Vol] 9.3 g/dL Critically low 12.0-16.0 [facility] Comment on above: Performed By: #### C BC ####[facility] Qzkhsuoxob7335 [place] [phone]. Abiel Clement IG # 0.07 10e3/ul Critically high 0.00-0.03 [facility] Comment on above: Performed By: #### C BC ####[facility] Bkzbhhugop0592 [place] [phone]. Abiel Clement IG % 0.7 % Critically high 0.0-0.5 [facility] Comment on above: Performed By: #### C BC ####[facility] Ctwztzjhob9[address] [place] [address]Dr. Abiel Clement LYMPH # 1.7 103/ul Normal 1.2-3.8 [facility] Comment on above: Performed By: #### C BC ####[facility] Ptnpmtohcs3125 [place] [address]Dr. Abiel Clement Lymphocytes/100 WBC (Bld) 17.0 % Critically low 20.5-60.0 Comment on above: Performed By: #### C BC ####[facility] Oqucviliap[address] [place] [address]Dr. Abiel Clement MANUAL DIFF REQ NO Normal [facility] Comment on above: Performed By: #### C BC ####[facility] Btaoubnpjx74[address] [place] [address]Dr. Abiel Clement MCH (RBC) [Entitic mass] 29.2 pg Normal 26.7-34.0 Comment on above: Performed By: #### C BC ####[facility] [address]ytbyjuuyi[address] [place], [place] [address]Dr. Abiel Clement MCHC (RBC) [Mass/Vol] 31.5 g/dL Normal 29.9-35.2 [facility] Comment on above: Performed By: #### C BC ####[facility] Zazryyogjf6966 [place] [address]Dr. Abiel Clement MCV (RBC) [Entitic vol] 92.5 fL Normal 81.0-99.0 Comment on above: Performed By: #### C BC ####[facility] Yiokgjbvmz9425 [place] [id number]. Abiel Clement MONO # 0.9 103/ul Critically high 0.3-0.8 [facility] Comment on above: Performed By: #### C BC ####[facility] Owrotuasun7938 [place] [id number]. Aibel Clement Monocytes/100 WBC (Bld) 9.1 % Normal 1.7-12.0 [facility] Comment on above: Performed By: #### C BC ####[facility] Awagzebjyq2235 [place] [id number]. Abiel Clement NEUT # 7.3 103/ul Critically high 1.4-6.5 [facility] Comment on above: Performed By: #### C BC ####[facility] Rkdocjyqrl6272 [place] [address]Dr. Abiel Clement Neutrophils/100 WBC (Bld) 71.9 % Normal 43.0-75.0 [facility] Comment on above: Performed By: #### C BC ####[facility] Nnskoogoda4908 [place] [phone]. Abiel Clement Platelet mean volume (Bld) [Entitic vol] 11.0 fL Normal 9.5-13.5 [facility] Comment on above: Performed By: #### C BC ####[facility] Hmaczspynn6342 [place] [id number]. Abiel Clement PLT 232 103/ul Normal 150-450 [facility] Comment on above: Performed By: #### C BC ####[facility] Hnzmkqsoki3732 [place] [id number]. Abiel Clement RBC 3.19 106/ul Critically low 4.20-5.40 [facility] Comment on above: Performed By: #### C BC ####[facility] Zjyukldain4110 [place] [id number]. Abiel Clement WBC 10.1 103/ul Normal 4.0-11.0 [facility] Comment on above: Performed By: #### C BC ####[facility] Rnsouctzqr6440 [place] [id number]. Abiel Clement POINT OF CARE GLUCOSEon 03-05 Glucose [Mass/Vol] 141 mg/dL Critically high [address] [place] [address] Comment on above: Performed By: #### P OCGLUC ####[facility] Gsxeshusjo6608 [place] [phone]. Abiel Clement Glucose [Mass/Vol] 182 mg/dL Critically high [address] [place] [address] Comment on above: Performed By: #### P OCGLUC ####[facility] Uqxaurayaf9737 [place] [phone]. Abiel Clement Glucose [Mass/Vol] 235 mg/dL Critically high [address] [place] [address] Comment on above: Performed By: #### P OCGLUC ####[facility] Lbmtmnufsl[address] [place] [address]Dr. Abiel Clement Glucose [Mass/Vol] 246 mg/dL Critically high [address] [place] [address] Comment on above: Performed By: #### P OCGLUC ####[facility] Iaggbvkgzq1724 [place] [address]Dr. Abiel Clement Glucose [Mass/Vol] 256 mg/dL Critically high [address] [place] [address] Comment on above: Performed By: #### P OCGLUC ####[facility] Sisnrsodil7203 [place] [address]Dr. Abiel Clement Glucose [Mass/Vol] 249 mg/dL Critically high [address] [place] [address] Comment on above: Performed By: #### P OCGLUC ####[facility] [address]xrlfcxtkj[address] [place], [place] [address]Dr. Abiel Clement PROF 14(COMP METB)on 022 Albumin [Mass/Vol] 2.2 g/dL Critically low 3.4-5.0 [facility] Comment on above: Performed By: #### H STROPN, BNP, CMP ####[facility] Fyfzbteeot3613 [place] [address]Dr. Abiel Clement Albumin/Globulin [Mass ratio] 0.6 {ratio} [facility] Comment on above: Performed By: #### H STROPN, BNP, CMP ####[facility] Rztufzwvht9719 [place] [address]Dr. Abiel Clement ALP [Catalytic activity/Vol] 114 U/L Normal 46-116 Comment on above: Performed By: #### H STROPN, BNP, CMP ####[facility] Rwebevupis2898 [place] [address]Dr. Abiel Clement ALT [Catalytic activity/Vol] 20 U/L Normal 14-59 Comment on above: Performed By: #### H STROPN, BNP, CMP ####[facility] Gnfvpnayrj3084 [place] [address]Dr. Abiel Clement Anion gap [Moles/Vol] 9.7 mmol/L Normal Comment on above: Performed By: #### H STROPN, BNP, CMP ####[facility] Cxirnfpzem[address] [place], [place] [address]Dr. Abiel Clement AST [Catalytic activity/Vol] 18 U/L Normal 15-37 Comment on above: Performed By: #### H STROPN, BNP, CMP ####[facility] Zanteytqpn[address] [place], [place] [address]Dr. Abiel Clement Bilirubin [Mass/Vol] 0.2 mg/dL Normal 0.2-1.0 Comment on above: Performed By: #### H STROPN, BNP, CMP ####[facility] Hdxkaadbpe[address] [place], [place] [address]Dr. Abiel Clement Calcium [Mass/Vol] 8.4 mg/dL Critically low 8.5-10.1 [facility] Comment on above: Performed By: #### H STROPN, BNP, CMP ####[facility] [facility] [address] [place], [place] [address]Dr. Abiel Clement Chloride [Moles/Vol] 105 mmol/L Normal 98-107 Comment on above: Performed By: #### H STROPN, BNP, CMP ####[facility] Iyxpkvmxxg0[address] [place], [place] [address]Dr. Abiel Clement CO2 [Moles/Vol] 26.1 mmol/L Normal 21.0-32.0 [facility] Comment on above: Performed By: #### H STROPN, BNP, CMP ####[facility] Lqaragpvqa45[address] [place] [address]Dr. Abiel Clement Creatinine [Mass/Vol] 1.01 mg/dL Normal 0.55-1.02 Comment on above: Performed By: #### H STROPN, BNP, CMP ####[facility] Sichgsccyv38[address] [place] [address]Dr. Abiel Clement EGFR-AF RWANDAN >60 Normal >=60 [facility] Comment on above: Performed By: #### H STROPN, BNP, CMP ####[facility] Xcdbldavrj8636 [place] [address]Dr. Abiel Clement EGFR-NON AF RWANDAN 56 mL/min/1.73m2 Critically low >=60 Comment on above: Performed By: #### H STROPN, BNP, CMP ####[facility] Yexclisddd8112 [place] [address]Dr. Suyapaviviana Clement Globulin (S) [Mass/Vol] 3.4 g/dL Normal Comment on above: Performed By: #### H STROPN, BNP, CMP ####[facility] Fqonehpyjz8804 [place] [address]Dr. Suyapaviviana Clement Glucose [Mass/Vol] 267 mg/dL Critically high 74-106 [facility] Comment on above: Performed By: #### H STROPN, BNP, CMP ####[facility] Tsyulzecmc5355 [place] [address]Dr. Abiel Clement Potassium [Moles/Vol] 3.8 mmol/L Normal 3.5-5.1 Comment on above: Performed By: #### H STROPN, BNP, CMP ####[facility] Glxmoeofjq78[address] [place] [address]Dr. Abiel Clement Protein [Mass/Vol] 5.6 g/dL Critically low 6.4-8.2 [facility] Comment on above: Performed By: #### H STROPN, BNP, CMP ####[facility] Blcdmsziki7103 [place] [address]Dr. Abiel Clement Sodium [Moles/Vol] 137 mmol/L Normal 136-145 [facility] Comment on above: Performed By: #### H STROPN, BNP, CMP ####[facility] Cdbwmwpgtt8016 [place] [address]Dr. Abiel Clement Urea nitrogen [Mass/Vol] 28.0 mg/dL Critically high 7.0-18.0 Comment on above: Performed By: #### H STROPN, BNP, CMP ####[facility] Jdjfntrwgf1727 [place] [address]Dr. Abiel Clement Urea nitrogen/Creatinine [Mass ratio] 27.7 mg/mg Normal Comment on above: Performed By: #### H STROPN, BNP, CMP ####[facility] Anprukaexp[address] [place], [place] [address]Dr. Abiel Clement TROPONIN, HIGH SENSITIVITYon 03-14-2022 HSTROP 13.7 pg/mL Normal 4.0-51.3 Comment on above: Result Comment: CUT- OFF POINTS HAVE BEEN ESTABLISHED BASED ON THE FOURTH UNIVERSAL DEFINITIONS OF MYOCARDIALINFARCTION. THE UPPER REFERENCE LIMIT (URL) OF TROPONIN, DEFINED THE 99TH PERCENTILE OFcTnI DISTRIBUTION IN A REFERENCE POPULATION, HAS BEEN CONFIRMED THE DECISION THRESHOLDFOR OR DIAGNOSIS. Performed By: #### H STROPN, BNP, CMP ####[facility] Sdxvfluqah[address] [place], [place] [address]Dr. Abiel Clement BNPon 03-13-2022 Natriuretic peptide B (Bld) [Mass/Vol] 1791.0 pg/mL Critically high <=900.0 Comment on above: Performed By: #### C MP, BNP ####[facility] Ijlkfmpoiu28[address] [place] [address]Dr. Abiel Clement Natriuretic peptide B (Bld) [Mass/Vol] 698.0 pg/mL Normal <=900.0 Comment on above: Performed By: #### B FACILITIES PAINTER, CMP ####[facility] Qetlsvppnc9925 [place] [id number]. Abile Clement CBC AUTO DIFFon 03-13-2022 BASO # 0.0 103/ul Normal 0.0-0.1 [facility] Comment on above: Performed By: #### C BC ####[facility] Rtjoqgunjd5166 [place] [id number]. Suyapaviviana Clement Basophils/100 WBC (Bld) 0.2 % Normal 0.2-2.0 [facility] Comment on above: Performed By: #### C BC ####[facility] Iynlfuixzv0675 [place] [address]Dr. Abiel Clement EO # 0.0 103/ul Normal 0.0-0.7 [facility] Comment on above: Performed By: #### C BC ####[facility] Bbwkxifuti7[address] [place], [place] [address]Dr. Abiel Urbano Eosinophils/100 WBC (Bld) 0.0 % Critically low 0.9-7.0 [facility] Comment on above: Performed By: #### C BC ####[facility] Wsqyxfzrhb[address] [place], [place] [address]Dr. Abiel Clement Erythrocyte distribution width (RBC) [Ratio] 13.3 % Normal 11.0-15.0 [facility] Comment on above: Performed By: #### C BC ####[facility] Zqeovlssjs[address] [place], [place] [address]Dr. Abiel Clement Hematocrit (Bld) [Volume fraction] 33.4 % Critically low 36.0-48.0 [facility] Comment on above: Performed By: #### C BC ####[facility] Omemwjuflp24[address] [place], [place] [address]Dr. Abiel Clement Hemoglobin (Bld) [Mass/Vol] 10.6 g/dL Critically low 12.0-16.0 [facility] Comment on above: Performed By: #### C BC ####[facility] Zufsawhqrz0[address] [place], [place] [address]Dr. Abiel Clement IG # 0.13 10e3/ul Critically high 0.00-0.03 [facility] Comment on above: Performed By: #### C BC ####[facility] Nmxlbsitbg5270 [place] [id number] Clement IG % 0.8 % Critically high 0.0-0.5 [facility] Comment on above: Performed By: #### C BC ####[facility] Ntkynctmui1661 [place] [phone] Clement LYMPH # 1.0 103/ul Critically low 1.2-3.8 [facility] Comment on above: Performed By: #### C BC ####[facility] Qtyqifrvwh6357 [place] [phone] Clement Lymphocytes/100 WBC (Bld) 6.0 % Critically low 20.5-60.0 Comment on above: Performed By: #### C BC ####[facility] Sgsoriwtjo5426 [place] [id number] Clement MANUAL DIFF REQ NO Normal [facility] Comment on above: Performed By: #### C BC ####[facility] Wlivqxlsob4926 [place] [phone] Abiel Urbano MCH (RBC) [Entitic mass] 30.0 pg Normal 26.7-34.0 Comment on above: Performed By: #### C BC ####[facility] Dzycjbbowd4611 [place] [phone] Suyapaviviana Clement MCHC (RBC) [Mass/Vol] 31.7 g/dL Normal 29.9-35.2 Comment on above: Performed By: #### C BC ####[facility] Svkxdtduti1218 [place] [phone] Clement MCV (RBC) [Entitic vol] 94.6 fL Normal 81.0-99.0 Comment on above: Performed By: #### C BC ####[facility] Khfsgalyed6986 [place] [id number] Clement MONO # 1.4 103/ul Critically high 0.3-0.8 [facility] Comment on above: Performed By: #### C BC ####[facility] Mznldyevxw8984 [place] [address]Dr. Abiel Clement Monocytes/100 WBC (Bld) 8.9 % Normal 1.7-12.0 [facility] Comment on above: Performed By: #### C BC ####[facility] Bcikuphaom8686 [place] [phone]. Abiel Clement NEUT # 13.3 103/ul Critically high 1.4-6.5 [facility] Comment on above: Performed By: #### C BC ####[facility] Ojyebkfdsk0899 [place] [address]Dr. Abiel Clement Neutrophils/100 WBC (Bld) 84.1 % Critically high 43.0-75.0 Comment on above: Performed By: #### C BC ####[facility] Winnelxrej0933 [place] [address]Dr. Abiel Clement Platelet mean volume (Bld) [Entitic vol] 10.8 fL Normal 9.5-13.5 [facility] Comment on above: Performed By: #### C BC ####[facility] [address]qsx[address] [place], [place] [address]Dr. Abiel Clement PLT 243 103/ul Normal 150-450 [facility] Comment on above: Performed By: #### C BC ####[facility] Mflidpxmsg1092 [place] [address]Dr. Abiel Clement RBC 3.53 106/ul Critically low 4.20-5.40 [facility] Comment on above: Performed By: #### C BC ####[facility] Zxcfmcvvwl5041 [place] [phone]. Abiel Clement WBC 15.9 103/ul Critically high 4.0-11.0 [facility] Comment on above: Performed By: #### C BC ####[facility] Zhqbxvrdgi3406 [place] [phone]. Abiel Clement CBC W MANUAL DIFFon 03-13-20 22 ATYPICAL LYMPH # Normal [facility] Comment on above: Performed By: #### C BCALLY ####[facility] Xfzewjbvrl9515 [place] [phone]. Abiel Clement ATYPICAL LYMPH % Normal [facility] Comment on above: Performed By: #### C BCMAN ####[facility] Fjqxfpxmai0537 [place] [phone]. Abiel Clement BAND # 0.8 103/ul Critically high 0.0-0.3 [facility] Comment on above: Performed By: #### C BCMAN ####[facility] Wuqfohkweb9072 [place] [phone]. Suyapalan Clement BAND % 6 % Critically high 0-5 [facility] Comment on above: Performed By: #### C ALVINO ####[facility] Zvjdiobzqi5671 [place] [address]Dr. Abiel Clement BASOM # 0.00 103/ul Normal 0.00-0.10 [facility] Comment on above: Performed By: #### C ALVINO ####[facility] Gtpowdpoon2922 [place] [address]Dr. Abiel Clement BASOM % 0.0 % Critically low 0.2-2.0 [facility] Comment on above: Performed By: #### C BCALLY ####[facility] Ldwaxioxnw5924 [place] [phone]. Abiel Clement BLAST # Normal [facility] Comment on above: Performed By: #### C BCALLY ####[facility] Jxtatiemvv3550 [place] [address]Dr. Abiel Clement BLAST % Normal [facility] Comment on above: Performed By: #### C ALVINO ####[facility] Fbxoasgsag6130 [place] [address]Dr. Abiel Clement CORRECTED WBC Normal 4.0-11.0 [facility] Comment on above: Performed By: #### C BCALLY ####[facility] Jwbdnycpff1299 [place] [phone]. Suyapalan Clement EOS # 0.00 103/ul Normal 0.00-0.70 [facility] Comment on above: Performed By: #### C ALVINO ####[facility] Bbaduyjjrc2573 [place], [place] [address]Sh. Abiel Clement EOS% 0.0 % Critically low 0.9-7.0 [facility] Comment on above: Performed By: #### C ALVINO ####[facility] Nqaskpsgzd9654 [place], [place] [address]Ci. Abiel Clement HCT 38.5 % Normal 36.0-48.0 [facility] Comment on above: Performed By: #### C ALVINO ####[facility] Ejbpinlosa1032 [place], [place] [address]Uc. Abiel Clement HGB 12.5 g/dl Normal 12.0-16.0 [facility] Comment on above: Performed By: #### C ALVINO ####[facility] Gxbonuhfco3223 [place], [place] [address]Za. Abiel Clement LYMPHM # 0.13 103/ul Critically low 1.20-3.80 [facility] Comment on above: Performed By: #### C ALVINO ####[facility] Ajqhgzrplv1408 [place], [place] [address]Wb. Abiel Clement LYMPHM% 1.0 % Critically low 20.5-60.0 [facility] Comment on above: Performed By: #### C ALVINO ####[facility] Ridntomkdf4519 [place], [place] [address]Ff. Abiel Clement MCH 29.3 pg Normal 26.7-34.0 [facility] Comment on above: Performed By: #### C ALVINO ####[facility] Bleckvyxae3690 [place], [place] [address]Ph. Abiel Clement MCHC 32.5 g/dl Normal 29.9-35.2 [facility] Comment on above: Performed By: #### C ALVINO ####[facility] Hpmdmnviqg4139 [place], [place] [address]Fu. Abiel Clement MCV 90.4 fL Normal 81.0-99.0 [facility] Comment on above: Performed By: #### C ALVINO ####[facility] Gbhllibdig2535 [place] [phone]. Abiel Clement METAMYELOCYTE # Normal [facility] Comment on above: Performed By: #### C ALVINO ####[facility] Aqpdvcxgzr5709 [place] [phone]. Abiel Clement METAMYELOCYTE % Normal [facility] Comment on above: Performed By: #### C ALVINO ####[facility] Lcbjkrrcyh6114 [place] [phone]. Abiel Clement MONOM# 0.13 103/ul Critically low 0.30-0.80 [facility] Comment on above: Performed By: #### C ALVINO ####[facility] Zzjennetme8868 [place] [address]Dr. Abiel Clement MONOM% 1.0 % Critically low 1.7-12.0 [facility] Comment on above: Performed By: #### C ALVINO ####[facility] Kiyqhlvdil9689 [place] [address]Dr. Abiel Clement MPV 10.6 fL Normal 9.5-13.5 Comment on above: Performed By: #### C ALVINO ####[facility] [address]utij[address] [place], [place] [address]Dr. Abiel Clement MYELOCYTE # Normal [facility] Comment on above: Performed By: #### C ALVINO ####[facility] Vpogwyoxmc9199 [place] [address]Dr. Abiel Clement MYELOCYTE % Normal [facility] Comment on above: Performed By: #### C ALVINO ####[facility] Vdpbidfufa3090 [place] [address]Dr. Abiel Clement NRBC Normal [facility] Comment on above: Performed By: #### C ALVINO ####[facility] Egopxjpmfr3198 [place] [address]Dr. Abiel Clement PLT 307 103/ul Normal 150-450 [facility] Comment on above: Result Comment: Plat elet clumps noted on diff. Automated Platelet count may be falsely decreased Performed By: #### C ALVINO ####[facility] Kqhpesyglp4124 [place], [place] [address]Wj. Abiel Clement RBC 4.26 106/ul Normal 4.20-5.40 Comment on above: Performed By: #### C ALVINO ####[facility] Tsyfdpxkeu4298 [place], [place] [address]Dp. Abiel Clement RDW 13.3 % Normal 11.0-15.0 Comment on above: Performed By: #### C ALVINO ####[facility] Pzbmfqmklv8865 [place], [place] [address]Wq. Abiel Clement SEG # 11.68 103/ul Critically high 1.40-6.50 [facility] Comment on above: Performed By: #### Sheila DE OLIVEIRA ####[facility] Mrdvprmjqy3746 [place] [phone]. Abiel Clement SEG % 92.0 % Critically high 43.0-75.0 [facility] Comment on above: Performed By: #### Sheila DE OLIVEIRA ####[facility] Vroflnuqhp6607 [place], [place] [address]Ij. Abiel Clement WBC 12.7 103/ul Critically high 4.0-11.0 [facility] Comment on above: Performed By: #### Sheila DE OLIVEIRA ####[facility] Wzljjpyfrq9127 [place], [place] [address]Oa. Suyapaviviana Urbano CTA CHEST WO W CONon 022 CTA CHEST WO W CON Normal [facility] CULTURE BLOODon 03-13-2022 Microscopic examination of blood, culture Culture Observations: NO GROWTH AT 5 DAYS. Normal Comment on above: Performed By: #### B LDCX2 ####[facility] Ooslxlgvbm8620 [place] [id number]. Abiel Clement Microscopic examination of blood, culture Culture Observations: NO GROWTH AT 5 DAYS. Normal Comment on above: Performed By: #### B LDCX1 ####[facility] Gztegslnie6869 [place] [phone]. Abiel Clement Covid-19 PCR (CVDTBH)on SARS-CoV-2 (COVID-19) RNA CLARIBEL+probe Ql (Unsp spec) Not detected Normal NOT DETECTED [facility] Comment on above: Result Comment: When [...] for this test is supported by the [employer] Manager of Health and Human Service's declaration that [...] be used). Performed By: #### C VDTBH ####[facility] Quwulpkctl3458 [place] [address]Dr. Abiel Clement D-DIMERon 03-13-2022 D-DIMER 2.68 mg/L FEU Critically high <=0.59 [facility] Comment on above: Performed By: #### D DIM ####[facility] Wpwjoeghkp[address] [place], [place] [address]Dr. Abiel Clement D-DIMER COMMENTS SEE BELOW Normal [facility] Comment on above: Result Comment: Incr [...] generalized hospitalization. Performed By: #### D DIM ####[facility] Eqjzkakwlk1848 [place] [address]Dr. Suyapaviviana Urbano LACTATE/LACTIC ACIDon 2021 Lactate [Moles/Vol] 1.6 mmol/L Normal 0.4-1.9 [facility] Comment on above: Performed By: #### L ACT ####[facility] Hykjpfccrj0646 [place] [address]Dr. Suyapaviviana Urbano Lactate [Moles/Vol] 2.0 mmol/L Critically high 0.4-1.9 Comment on above: Performed By: #### L ACT ####[facility] Wvkoqeupau9331 [place] [address]Dr. Suyapaviviana Urbano POINT OF CARE GLUCOSEon Glucose [Mass/Vol] 359 mg/dL Critically high [address] [place] [address] Comment on above: Performed By: #### P OCGLUC ####[facility] Fmljwugcwg0512 [place] [address]Dr. Abiel Clement Glucose [Mass/Vol] 428 mg/dL Critically high [address] [place] [address] Comment on above: Performed By: #### P OCGLUC ####[facility] Gddguznqil2550 [place] [address]Dr. Abiel Clement Glucose [Mass/Vol] 461 mg/dL Critically high [address] [place] [address] Comment on above: Performed By: #### P OCGLUC ####[facility] Ptafuuspvb8099 [place] [address]Dr. Abiel Urbano Glucose [Mass/Vol] 494 mg/dL Critically high [address] [place] [address] Comment on above: Performed By: #### P OCGLUC ####[facility] Bclkrsauhh4556 [place] [address]Dr. Abiel Clement PROF 14(COMP METB)on 022 Albumin [Mass/Vol] 2.4 g/dL Critically low 3.4-5.0 [facility] Comment on above: Performed By: #### C MP, BNP ####[facility] Wszndmlziv6131 [place] [address]Dr. Abiel Clement Albumin/Globulin [Mass ratio] 0.6 {ratio} Normal [facility] Comment on above: Performed By: #### C MP, BNP ####[facility] Fhvuosrsgz0807 [place] [address]Dr. Abiel Clement ALP [Catalytic activity/Vol] 128 U/L Critically high 46-116 Comment on above: Performed By: #### C MP, BNP ####[facility] Fmzakyafil2202 [place] [address]Dr. Abiel Urbano ALT [Catalytic activity/Vol] 17 U/L Normal 14-59 Comment on above: Performed By: #### C MP, BNP ####[facility] Tajsvzstlj[address] [place], [place] [address]Dr. Abiel Urbano Anion gap [Moles/Vol] 13.9 mmol/L Normal [facility] Comment on above: Performed By: #### C MP, BNP ####[facility] Jlaplgvccz[address] [place], [place] [address]Dr. Abiel Urbano AST [Catalytic activity/Vol] 26 U/L Normal 15-37 Comment on above: Performed By: #### C MP, BNP ####[facility] Gtczkbcrwj12[address] [place], [place] [address]Dr. Abiel Urbano Bilirubin [Mass/Vol] 0.5 mg/dL Normal 0.2-1.0 Comment on above: Performed By: #### C MP, BNP ####[facility] Vrhsjfinjy60[address] [place], [place] [address]Dr. Abiel Clement Calcium [Mass/Vol] 8.3 mg/dL Critically low 8.5-10.1 [facility] Comment on above: Performed By: #### C MP, BNP ####[facility] Aimmvxffcv9[address] [place], [place] [address]Dr. Abiel Clement Chloride [Moles/Vol] 99 mmol/L Normal 98-107 Comment on above: Performed By: #### C MP, BNP ####[facility] Onrtdhidva[address] [place], [place] [address]Dr. Abiel Clement CO2 [Moles/Vol] 23.4 mmol/L Normal 21.0-32.0 [facility] Comment on above: Performed By: #### C MP, BNP ####[facility] Pcovfjadjy9[address] [place], [place] [address]Dr. Abiel Urbano Creatinine [Mass/Vol] 1.19 mg/dL Critically high 0.55-1.02 Comment on above: Performed By: #### C MP, BNP ####[facility] Auyscuouct[address] [place], [place] [address]Dr. Abiel Urbano EGFR-AF RWANDAN 56 mL/min/1.73m2 Critically low >=60 Comment on above: Performed By: #### C MP, BNP ####[facility] Mxtdxsrmwr[address] [place], [place] [address]Dr. Suyapaviviana Urbano EGFR-NON AF RWANDAN 46 mL/min/1.73m2 Critically low >=60 Comment on above: Performed By: #### C MP, BNP ####[facility] Cjgihzimqs[address] [place], [place] [address]Dr. Abiel Clement Globulin (S) [Mass/Vol] 3.7 g/dL Normal Comment on above: Performed By: #### C MP, BNP ####[facility] Kpywnrrckv6[address] [place], [place] [address]Dr. Suyapaviviana Urbano Glucose [Mass/Vol] 447 mg/dL Critically high 74-106 [facility] Comment on above: Performed By: #### C MP, BNP ####[facility] Bhgkkcmfze99[address] [place], [place] [address]Dr. Abiel Clement Potassium [Moles/Vol] 5.3 mmol/L Critically high 3.5-5.1 Comment on above: Performed By: #### C MP, BNP ####[facility] Gpszifhbza9[address] [place], [place] [address]Dr. bAiel Clement Protein [Mass/Vol] 6.1 g/dL Critically low 6.4-8.2 [facility] Comment on above: Performed By: #### C MP, BNP ####[facility] Rmgzxlnwqn32[address] [place], [place] [address]Dr. Abiel Clement Sodium [Moles/Vol] 131 mmol/L Critically low 136-145 [facility] Comment on above: Performed By: #### C MP, BNP ####[facility] Fpnsvjbdjn3[address] [place], [place] [address]Dr. Abiel Clement Urea nitrogen [Mass/Vol] 36.0 mg/dL Critically high 7.0-18.0 Comment on above: Performed By: #### C MP, BNP ####[facility] Cbobjrfjpd[address] [place], [place] [address]Dr. Abiel Urbano Urea nitrogen/Creatinine [Mass ratio] 30.3 mg/mg Normal Comment on above: Performed By: #### C MP, BNP ####[facility] Tzdzazotcb24[address] [place], [place] [address]Dr. Suyapaviviana Clement Albumin [Mass/Vol] 3.1 g/dL Critically low 3.4-5.0 [facility] Comment on above: Performed By: #### B FACILITIES PAINTER, CMP ####[facility] Mlgkyjmqgd[address] [place], [place] [address]Dr. Abiel Clement Albumin/Globulin [Mass ratio] 0.7 {ratio} Normal Comment on above: Performed By: #### B FACILITIES PAINTER, CMP ####[facility] Vfngzafaxk[address] [place], [place] [address]Dr. Abiel Urbano ALP [Catalytic activity/Vol] 161 U/L Critically high 46-116 Comment on above: Performed By: #### B FACILITIES PAINTER, CMP ####[facility] Jdiyeubyab350[address] [place], [place] [address]Dr. Abiel Urbano ALT [Catalytic activity/Vol] 22 U/L Normal 14-59 Comment on above: Performed By: #### B FACILITIES PAINTER, CMP ####[facility] Cmnzittrsv[address] [place], [place] [address]Dr. Suyapaviviana Urbano Anion gap [Moles/Vol] 13.5 mmol/L Normal [facility] Comment on above: Performed By: #### B FACILITIES PAINTER, CMP ####[facility] Bmxgqlqcch6889 [place] [address]Dr. Abiel Clement AST [Catalytic activity/Vol] 41 U/L Critically high 15-37 [facility] Comment on above: Performed By: #### B FACILITIES PAINTER, CMP ####[facility] Hzglhxtkmk9[address] [place], [place] [address]Dr. Abiel Clement Bilirubin [Mass/Vol] 0.5 mg/dL Normal 0.2-1.0 Comment on above: Performed By: #### B FACILITIES PAINTER, CMP ####[facility] Builkloeqc[address] [place], [place] [address]Dr. Abiel Clement Calcium [Mass/Vol] 9.4 mg/dL Normal 8.5-10.1 [facility] Comment on above: Performed By: #### B FACILITIES PAINTER, CMP ####[facility] Jtfnvxjbgg604[address] [place], [place] [address]Dr. Abiel Clement Chloride [Moles/Vol] 98 mmol/L Normal 98-107 Comment on above: Performed By: #### B FACILITIES PAINTER, CMP ####[facility] Didljyzdqt85[address] [place], [place] [address]Dr. Abiel Clement CO2 [Moles/Vol] 27.0 mmol/L Normal 21.0-32.0 [facility] Comment on above: Performed By: #### B FACILITIES PAINTER, CMP ####[facility] Rmyxihvfuo[address] [place], [place] [address]Dr. Abiel Clement Creatinine [Mass/Vol] 1.08 mg/dL Critically high 0.55-1.02 Comment on above: Performed By: #### B FACILITIES PAINTER, CMP ####[facility] Mgzzcucryh9[address] [place], [place] [address]Dr. Abiel Urbano EGFR-AF RWANDAN >60 Normal >=60 [facility] Comment on above: Performed By: #### B FACILITIES PAINTER, CMP ####[facility] Numtfauynv7[address] [place], [place] [address]Dr. Abiel Urbano EGFR-NON AF RWANDAN 51 mL/min/1.73m2 Critically low >=60 [facility] Comment on above: Performed By: #### B FACILITIES PAINTER, CMP ####[facility] Gfpflfluxh9528 [place] [address]Dr. Abiel Clement Globulin (S) [Mass/Vol] 4.2 g/dL Normal Comment on above: Performed By: #### B FACILITIES PAINTER, CMP ####[facility] Xbjsackhsn8590 [place] [address]Dr. Abiel Clement Glucose [Mass/Vol] 173 mg/dL Critically high 74-106 T [facility] Comment on above: Performed By: #### B FACILITIES PAINTER, CMP ####[facility] Dazeywnvte5272 [place] [address]Dr. Abiel Clement Potassium [Moles/Vol] 4.5 mmol/L Normal 3.5-5.1 Comment on above: Performed By: #### B FACILITIES PAINTER, CMP ####[facility] [address]ozmlxvcel[address] [place], [place] [address]Dr. Abiel Clement Protein [Mass/Vol] 7.3 g/dL Normal 6.4-8.2 [facility] Comment on above: Performed By: #### B FACILITIES PAINTER, CMP ####[facility] Ibqsfrvgty804467 [address] [address] [place], [place] [address]Dr. Abiel Clement Sodium [Moles/Vol] 134 mmol/L Critically low 136-145 [facility] Comment on above: Performed By: #### B FACILITIES PAINTER, CMP ####[facility] Fqzrgldjkd4[address] [place], [place] [address]Dr. Abiel Clement Urea nitrogen [Mass/Vol] 37.0 mg/dL Critically high 7.0-18.0 Comment on above: Performed By: #### B FACILITIES PAINTER, CMP ####[facility] Tnmtbytrvl6866[address] [place], [place] [address]Dr. Abiel Clement Urea nitrogen/Creatinine [Mass ratio] 34.3 mg/mg Normal Comment on above: Performed By: #### B FACILITIES PAINTER, CMP ####[facility] Wpjengujwm4435[address] [place], [place] [address]Dr. Abiel Urbano XR ANKLE RT MIN 3 VIEWSon XR ANKLE RT MIN 3 VIEWS Normal XR CHEST 1 Von 03-13-2022 XR CHEST 1 V Normal [facility] XR FOOT RT MIN 3 VIEWSon XR FOOT RT MIN 3 VIEWS Normal [facility] CBC AUTO DIFFon 03-12-2022 BASO # 0.1 103/ul Normal 0.0-0.1 [facility] Comment on above: Performed By: #### C BC ####[facility] [address] [place] [address]Dr. Abiel Clement Basophils/100 WBC (Bld) 0.7 % Normal 0.2-2.0 [facility] Comment on above: Performed By: #### C BC ####[facility] Scfsaglzzc939867 [address] [place], [place] [address]Dr. Abiel Clement EO # 0.2 103/ul Normal 0.0-0.7 [facility] Comment on above: Performed By: #### C BC ####[facility] Dhlngytrxg4985[address] [place], [place] [address]Dr. Abiel Clement Eosinophils/100 WBC (Bld) 2.1 % Normal 0.9-7.0 [facility] Comment on above: Performed By: #### C BC ####[facility] Mbxlwtkoki4938[address] [place], [place] [address]Dr. Abiel Clement Erythrocyte distribution width (RBC) [Ratio] 13.1 % Normal 11.0-15.0 [facility] Comment on above: Performed By: #### C BC ####[facility] Birymnrzng926067 [address] [place], [place] [address]Dr. Abiel Clement Hematocrit (Bld) [Volume fraction] 33.9 % Critically low 36.0-48.0 [facility] Comment on above: Performed By: #### C BC ####[facility] Qjaaqzebiv3[address] [place], [place] [address]Dr. Abiel Clement Hemoglobin (Bld) [Mass/Vol] 11.0 g/dL Critically low 12.0-16.0 [facility] Comment on above: Performed By: #### C BC ####[facility] Gqqicadqmk245[address] [place], [place] [address]DrKasia Clement IG # 0.04 10e3/ul Critically high 0.00-0.03 [facility] Comment on above: Performed By: #### C BC ####[facility] [address]muqma[address] [place] [address]DrKasia Clement IG % 0.4 % Normal 0.0-0.5 Comment on above: Performed By: #### C BC ####[facility] Paxmpcennr[address] [place] [address]DrKasia Clement LYMPH # 2.0 103/ul Normal 1.2-3.8 [facility] Comment on above: Performed By: #### C BC ####[facility] Vwvulmhoyz790767 [address] [place], [place] [address]DrKaisa Clement Lymphocytes/100 WBC (Bld) 20.0 % Critically low 20.5-60.0 Comment on above: Performed By: #### C BC ####[facility] Xneaywqump1160[address] [place], [place] [address]DrKasia Clement MANUAL DIFF REQ NO Normal [facility] Comment on above: Performed By: #### C BC ####[facility] Ucqwvevdhh613[address] [place], [place] [address]DrKasia Clement MCH (RBC) [Entitic mass] 29.5 pg Normal 26.7-34.0 [facility] Comment on above: Performed By: #### C BC ####[facility] Npqpbpdlfi899[address] [place], [place] [address]DrKasia Clement MCHC (RBC) [Mass/Vol] 32.4 g/dL Normal 29.9-35.2 [facility] Comment on above: Performed By: #### C BC ####[facility] Avfhgkhjmw804867 [address] [place], [place] [address]DrKasia Clement MCV (RBC) [Entitic vol] 90.9 fL Normal 81.0-99.0 [facility] Comment on above: Performed By: #### C BC ####[facility] Oageuszxcb3080[address] [place], [place] [address]DrKasia Clement MONO # 1.0 103/ul Critically high 0.3-0.8 [facility] Comment on above: Performed By: #### C BC ####[facility] Xwrioqusnd57[address] [place] [id number]. Abiel Clement Monocytes/100 WBC (Bld) 10.3 % Normal 1.7-12.0 [facility] Comment on above: Performed By: #### C BC ####[facility] Xypngutnjv[address] [place] [address]Dr. Abiel Clement NEUT # 6.5 103/ul Normal 1.4-6.5 [facility] Comment on above: Performed By: #### C BC ####[facility] Svayacmsmf[address] [place] [address]Dr. Abiel Clement Neutrophils/100 WBC (Bld) 66.5 % Normal 43.0-75.0 [facility] Comment on above: Performed By: #### C BC ####[facility] Jlchqhyxau454[address] [place], [place] [address]Dr. Abiel Clement Platelet mean volume (Bld) [Entitic vol] 10.8 fL Normal 9.5-13.5 [facility] Comment on above: Performed By: #### C BC ####[facility] [address]okqmmudu[address] [place] [address]Dr. Abiel Clement PLT 278 103/ul Normal 150-450 [facility] Comment on above: Performed By: #### C BC ####[facility] Bnafdaasxl5[address] [place] [id number]. Abiel Clement RBC 3.73 106/ul Critically low 4.20-5.40 [facility] Comment on above: Performed By: #### C BC ####[facility] Gnwdbawhtl59[address] [place] [id number]. Abiel Clement WBC 9.7 103/ul Normal 4.0-11.0 [facility] Comment on above: Performed By: #### C BC ####[facility] Zhreyfyllz7467[address] [place], [place] [address]DrKasia Suyapaviviana Clement PROF CHEM 8 (BAS METB)on Anion gap [Moles/Vol] 11.5 mmol/L Normal [facility] Comment on above: Performed By: #### B MP ####[facility] Acweifiegp403567 [address] [place], [place] [address]Dr. Suyapaviviana Clement Calcium [Mass/Vol] 8.9 mg/dL Normal 8.5-10.1 [facility] Comment on above: Performed By: #### B MP ####[facility] Htskdbxobq691467 [address] [place], [place] [address]Dr. Abiel Clement Chloride [Moles/Vol] 102 mmol/L Normal 98-107 [facility] Comment on above: Performed By: #### B MP ####[facility] Tkomgogonl964467 [address] [place], [place] [address]Dr. Abiel Clement CO2 [Moles/Vol] 28.4 mmol/L Normal 21.0-32.0 [facility] Comment on above: Performed By: #### B MP ####[facility] Jdfkgrkqor735167 [address] [place], [place] [address]Dr. Abiel Clement Creatinine [Mass/Vol] 1.10 mg/dL Critically high 0.55-1.02 Comment on above: Performed By: #### B MP ####[facility] Vjgttlymcn4248[address] [place], [place] [address]Dr. Abiel Clement EGFR-AF RWANDAN >60 Normal >=60 [facility] Comment on above: Performed By: #### B MP ####[facility] Wmdqioscza2086[address] [place], [place] [address]Dr. Abiel Clement EGFR-NON AF RWANDAN 50 mL/min/1.73m2 Critically low >=60 [facility] Comment on above: Performed By: #### B MP ####[facility] Kyusqibdrx089[address] [place], [place] [address]Dr. Abiel Clement Glucose [Mass/Vol] 106 mg/dL Normal 74-106 [facility] Comment on above: Performed By: #### B MP ####[facility] Yzsykpjgfw7597[address] [place], [place] [address]Dr. Abiel Clement Potassium [Moles/Vol] 3.9 mmol/L Normal 3.5-5.1 Comment on above: Performed By: #### B MP ####[facility] [address]qnvlfrkgd[address] [place] [address]Dr. Abiel Clement Sodium [Moles/Vol] 138 mmol/L Normal 136-145 [facility] Comment on above: Performed By: #### B MP ####[facility] Fwygjbldub[address] [place] [address]Dr. Abiel Clement Urea nitrogen [Mass/Vol] 38.0 mg/dL Critically high 7.0-18.0 Comment on above: Performed By: #### B MP ####[facility] Tyukyibohn109[address] [place], [place] [address]Dr. Abiel Clement Urea nitrogen/Creatinine [Mass ratio] 34.5 mg/mg Normal Comment on above: Performed By: #### B MP ####[facility] Enswyaxfgs059[address] [place], [place] [address]Dr. Abiel Clement XR FOOT LT MIN 3 VIEWSon XR FOOT LT MIN 3 VIEWS Normal POINT OF CARE GLUCOSEon Glucose [Mass/Vol] 389 mg/dL Critically high [address] [place] [address] Comment on above: Performed By: #### P OCGLUC ####[facility] [address]fqgvsfy[address] [place] [address]Dr. Abiel Clement Glucose [Mass/Vol] 414 mg/dL Critically high [facility]106 [facility] Comment on above: Performed By: #### P OCGLUC ####[facility] Pdrmzjnypx16[address] [place] [address]Dr. Abiel Clement Glucose [Mass/Vol] 295 mg/dL Critically high [address] [place] [address] Comment on above: Performed By: #### P OCGLUC ####[facility] Uawtkndocy6136 [place] [address]Dr. Abiel Clement Glucose [Mass/Vol] 323 mg/dL Critically high [facility]106 [facility] Comment on above: Performed By: #### P OCGLUC ####[facility] Wizwprovig5410[address] [place], [place] [address]Dr. Abiel Clement [facility]on SARS-CoV-2 (COVID-19) RNA CLARIBEL+probe Ql (Unsp spec) Not detected Normal NOT DETECTED [facility] Comment on above: Result Comment: When [...] for this test is supported by the [employer] Manager of Health and Human Service's declaration that [...] be used). Performed By: #### C VDTBH ####[facility] Txwmtjmvjv020[address] [place], [place] [address]Dr. Abiel Clement CBC AUTO DIFFon 03-01-2022 BASO # 0.1 103/ul Normal 0.0-0.1 [facility] Comment on above: Performed By: #### C BC ####[facility] Iqpcrsdpqv6189[address] [place], [place] [address]Dr. Abiel Urbano Basophils/100 WBC (Bld) 0.7 % Normal 0.2-2.0 [facility] Comment on above: Performed By: #### C BC ####[facility] Ssiqhfaqzj4520[address] [place], [place] [address]Dr. Abiel Clement EO # 0.2 103/ul Normal 0.0-0.7 [facility] Comment on above: Performed By: #### C BC ####[facility] Pcfegqigsk5669[address] [place], [place] [address]Dr. Abiel Clement Eosinophils/100 WBC (Bld) 2.6 % Normal 0.9-7.0 [facility] Comment on above: Performed By: #### C BC ####[facility] Sezrusrail[address] [place] [address]Dr. Abiel Clement Erythrocyte distribution width (RBC) [Ratio] 13.2 % Normal 11.0-15.0 [facility] Comment on above: Performed By: #### C BC ####[facility] Cmhzoenomm9348 [place] [address]Dr. Abiel Celment Hematocrit (Bld) [Volume fraction] 42.4 % Normal 36.0-48.0 [facility] Comment on above: Performed By: #### C BC ####[facility] Kalpaxrids66[address] [place] [address]Dr. Abiel Clement Hemoglobin (Bld) [Mass/Vol] 13.9 g/dL Normal 12.0-16.0 [facility] Comment on above: Performed By: #### C BC ####[facility] Icdjjtrxqk7071 [place] [address]Dr. Abiel Clement IG # 0.02 10e3/ul Normal 0.00-0.03 [facility] Comment on above: Performed By: #### C BC ####[facility] Moitqscwsc038[address] [place] [address]Dr. Abiel Clement IG % 0.3 % Normal 0.0-0.5 [facility] Comment on above: Performed By: #### C BC ####[facility] Cbduxrddsu[address] [place] [address]Dr. Abiel Clement LYMPH # 1.8 103/ul Normal 1.2-3.8 [facility] Comment on above: Performed By: #### C BC ####[facility] Jooivgjumu[address] [place] [address]Dr. Abiel Clement Lymphocytes/100 WBC (Bld) 24.1 % Normal 20.5-60.0 [facility] Comment on above: Performed By: #### C BC ####[facility] [address]iqlfrkfoa[address] [place] [address]Dr. Abiel Urbano MANUAL DIFF REQ NO Normal [facility] Comment on above: Performed By: #### C BC ####[facility] Uzrsoontps2051 [place] [id number]. Abiel Clement MCH (RBC) [Entitic mass] 29.4 pg Normal 26.7-34.0 [facility] Comment on above: Performed By: #### C BC ####[facility] Htqetvluyo87[address] [place] [address]Dr. Abiel Urbano MCHC (RBC) [Mass/Vol] 32.8 g/dL Normal 29.9-35.2 [facility] Comment on above: Performed By: #### C BC ####[facility] Dllpdptalv6584[address] [place], [place] [address]Dr. Suyapaviviana Clement MCV (RBC) [Entitic vol] 89.8 fL Normal 81.0-99.0 [facility] Comment on above: Performed By: #### C BC ####[facility] Wdtaudwmvh7204[address] [place], [place] [address]Dr. Abiel Urbano MONO # 0.7 103/ul Normal 0.3-0.8 [facility] Comment on above: Performed By: #### C BC ####[facility] Zcipblpenl733867 [address] [place], [place] [address]Dr. Suyapaviviana Clement Monocytes/100 WBC (Bld) 9.2 % Normal 1.7-12.0 [facility] Comment on above: Performed By: #### C BC ####[facility] Oyrjaigitv99[address] [place] [address]Dr. Suyapaviviana Urbano NEUT # 4.6 103/ul Normal 1.4-6.5 [facility] Comment on above: Performed By: #### C BC ####[facility] Mlvtotdysf3584[address] [place], [place] [address]Dr. Abiel Clement Neutrophils/100 WBC (Bld) 63.1 % Normal 43.0-75.0 [facility] Comment on above: Performed By: #### C BC ####[facility] Bkpxjyiakc2[address] [place] [address]Dr. Abiel Clement Platelet mean volume (Bld) [Entitic vol] 11.4 fL Normal 9.5-13.5 Comment on above: Performed By: #### C BC ####[facility] Tggwhkzapj8196 [place] [address]Dr. Abiel Clement PLT 309 103/ul Normal 150-450 Comment on above: Performed By: #### C BC ####[facility] Fsgfgrvutq68[address] [place] [address]Dr. Abiel Clement RBC 4.72 106/ul Normal 4.20-5.40 Comment on above: Performed By: #### C BC ####[facility] Xrxrnlqqrv6604[address] [place], [place] [address]Dr. Abiel Clement WBC 7.3 103/ul Normal 4.0-11.0 Comment on above: Performed By: #### C BC ####[facility] Afmtbfgxpm279067 [address] [place], [place] [address]Dr. Abiel Clement PROF CHEM 8 (BAS METB)on Anion gap [Moles/Vol] 12.2 mmol/L Normal [facility] Comment on above: Performed By: #### B MP ####[facility] Gygjfjkdxr079967 [address] [place], [place] [address]Dr. Abiel Clement Calcium [Mass/Vol] 9.2 mg/dL Normal 8.5-10.1 [facility] Comment on above: Performed By: #### B MP ####[facility] Bpfnsvfgob29[address] [place] [address]Dr. Abiel Clement Chloride [Moles/Vol] 102 mmol/L Normal 98-107 Comment on above: Performed By: #### B MP ####[facility] Jtatwkwawm045[address] [place], [place] [address]Dr. Abiel Clement CO2 [Moles/Vol] 26.9 mmol/L Normal 21.0-32.0 [facility] Comment on above: Performed By: #### B MP ####[facility] Paswfpihnm3498 [place] [address]Dr. Abiel Urbano Creatinine [Mass/Vol] 0.99 mg/dL Normal 0.55-1.02 [facility] Comment on above: Performed By: #### B MP ####[facility] Dxqvqhvkry3185 [place] [address]Dr. Suyapaviviana Urbano EGFR-AF RWANDAN >=60 Normal >=60 [facility] Comment on above: Performed By: #### B MP ####[facility] Cbgonaltrb8971 [place] [address]Dr. Suyapaviviana Urbano EGFR-NON AF RWANDAN 57 mL/min/1.73m2 Critically low >=60 [facility] Comment on above: Performed By: #### B MP ####[facility] Aacanqqqfx573367 [address] [place], [place] [address]Dr. Abiel Clement Glucose [Mass/Vol] 103 mg/dL Normal 74-106 [facility] Comment on above: Performed By: #### B MP ####[facility] Hpeegknxvw996[address] [place], [place] [address]Dr. Abiel Clement Potassium [Moles/Vol] 4.1 mmol/L Normal 3.5-5.1 [facility] Comment on above: Performed By: #### B MP ####[facility] Mcosuhhejx8675[address] [place], [place] [address]Dr. Abiel Clement Sodium [Moles/Vol] 137 mmol/L Normal 136-145 [facility] Comment on above: Performed By: #### B MP ####[facility] Atrdjfxinf38216[address] [place], [place] [address]Dr. Abiel Clement Urea nitrogen [Mass/Vol] 27.0 mg/dL Critically high 7.0-18.0 [facility] Comment on above: Performed By: #### B MP ####[facility] Fllymaujvo094867 [address] [place], [place] [address]Dr. Abiel Clement Urea nitrogen/Creatinine [Mass ratio] 27.3 mg/mg Normal [facility] Comment on above: Performed By: #### B MP ####[facility] Vbtwhvkjwm2367[address] [place], [place] [address]Dr. Abiel Clement PROTIMEon 03-01-2022 INR Coag (PPP) [Relative time] 0.97 {INR} Normal [facility] Comment on above: Performed By: #### P TT, PT ####[facility] Fmsdkyyfli8984[address] [place], [place] [address]DrKasia Clement INR GUIDELINES SEE BELOW Normal [facility] Comment on above: Result Comment: GELY RED INR: 2.0 - 3.0 CONDITIONS NOT LISTED BELOW 2.5 - 3.5 FOR PROSTHETIC HEART VALVE REPLACEMENT 2.5 - 3.5 RECURRENT THROMBOSIS Performed By: #### P TT, PT ####[facility] Timtpjozat1908[address] [place], [place] [address]Dr. Abiel Clement PT Coag (PPP) [Time] 10.5 s Normal 9.0-11.6 [facility] Comment on above: Performed By: #### P TT, PT ####[facility] Wmvtcrinwc310[address] [place], [place] [address]DrKasia Clement PTTon 03-01-2022 aPTT Coag (Bld) [Time] 24.8 s Normal 22.3-36.2 [facility] Comment on above: Performed By: #### P TT, PT ####[facility] Vbquvamejj0716[address] [place], [place] [address]DrKasia Clement US CAROTID ART BILon 022 US CAROTID ART VIC Normal [facility] XR FOOT VIC MIN 3 VIEWSon XR FOOT VIC MIN 3 VIEWS Normal [facility] AMYLASEon 11-03-2021 Amylase [Catalytic activity/Vol] 66 U/L Normal 31-110 [facility] Comment on above: Performed By: #### C MP, BENNY, LIPA ####[facility] Ttnehqszwe7422[address] [place], [place] [address]DrKasia Clement CBC AUTO DIFFon 11-03-2021 BASO # 0.1 103/ul Normal 0.0-0.1 [facility] Comment on above: Performed By: #### C BC ####[facility] Fqapistnmz8274[address] [place], [place] [address]DrKasia Clement Basophils/100 WBC (Bld) 1.1 % Normal 0.2-2.0 [facility] Comment on above: Performed By: #### C BC ####[facility] Jbbkccetxy3148[address] [place], [place] [address]Dr. Abiel Clement EO # 0.1 103/ul Normal 0.0-0.7 [facility] Comment on above: Performed By: #### C BC ####[facility] Umpmsuvhnq599[address] [place], [place] [address]Dr. Abiel Clement Eosinophils/100 WBC (Bld) 2.5 % Normal 0.9-7.0 [facility] Comment on above: Performed By: #### C BC ####[facility] Xlpedvfmkg407367 [address] [place], [place] [address]Dr. Abiel Clement Erythrocyte distribution width (RBC) [Ratio] 14.6 % Normal 11.0-15.0 [facility] Comment on above: Performed By: #### C BC ####[facility] Nixsnwblpa2418[address] [place], [place] [address]Dr. Abiel Clement Hematocrit (Bld) [Volume fraction] 47.4 % Normal 36.0-48.0 [facility] Comment on above: Performed By: #### C BC ####[facility] Pumljbdjwo1459[address] [place], [place] [address]Dr. Abiel Clement Hemoglobin (Bld) [Mass/Vol] 15.4 g/dL Normal 12.0-16.0 [facility] Comment on above: Performed By: #### C BC ####[facility] Stkafuciqb25[address] [place], [place] [address]Dr. Abiel Clement IG # 0.01 10e3/ul Normal 0.00-0.03 [facility] Comment on above: Performed By: #### C BC ####[facility] Pxyqruckte1790[address] [place], [place] [address]Dr. Abiel Clement IG % 0.2 % Normal 0.0-0.5 [facility] Comment on above: Performed By: #### C BC ####[facility] Qyxacvhhpb874[address] [place], [place] [address]Dr. Abiel Clement LYMPH # 1.6 103/ul Normal 1.2-3.8 [facility] Comment on above: Performed By: #### C BC ####[facility] Zyp[address]zjbvz94[address] [place] [address]Dr. Suyapaviviana Clement Lymphocytes/100 WBC (Bld) 27.3 % Normal 20.5-60.0 [facility] Comment on above: Performed By: #### C BC ####[facility] Jnosnwpftm6074 [place] [address]Dr. Abiel Clement MANUAL DIFF REQ NO Normal [facility] Comment on above: Performed By: #### C BC ####[facility] Tjhdjvrjjn7702 [place] [address]Dr. Abiel Clement MCH (RBC) [Entitic mass] 28.1 pg Normal 26.7-34.0 [facility] Comment on above: Performed By: #### C BC ####[facility] Orkvvefanu77[address] [place], [place] [address]Dr. Suyaapviviana Clement MCHC (RBC) [Mass/Vol] 32.5 g/dL Normal 29.9-35.2 [facility] Comment on above: Performed By: #### C BC ####[facility] Mxobnkunrq3987[address] [place], [place] [address]Dr. Abiel Clement MCV (RBC) [Entitic vol] 86.5 fL Normal 81.0-99.0 [facility] Comment on above: Performed By: #### C BC ####[facility] Frqfzmfnxm8808 [place] [address]Dr. Abiel Clement MONO # 0.5 103/ul Normal 0.3-0.8 [facility] Comment on above: Performed By: #### C BC ####[facility] Jhpjlrfhce8[address] [place], [place] [address]Dr. Abiel Clement Monocytes/100 WBC (Bld) 8.5 % Normal 1.7-12.0 [facility] Comment on above: Performed By: #### C BC ####[facility] Emwylwavbk55[address] [place], [place] [address]Dr. Abiel Clement NEUT # 3.4 103/ul Normal 1.4-6.5 Comment on above: Performed By: #### C BC ####[facility] Mtpmojoybs2826 [place] [address]Dr. Abiel Clement Neutrophils/100 WBC (Bld) 60.4 % Normal 43.0-75.0 Comment on above: Performed By: #### C BC ####[facility] Hnzsgoyjgz9127 [place] [address]Dr. Abiel Clement Platelet mean volume (Bld) [Entitic vol] 11.6 fL Normal 9.5-13.5 Comment on above: Performed By: #### C BC ####[facility] Ulnpagsenh[address] [place] [address]Dr. Abiel Clement PLT 257 103/ul Normal 150-450 [facility] Comment on above: Performed By: #### C BC ####[facility] Szmzbvitms1132 [place] [address]Dr. Abiel Clement RBC 5.48 106/ul Critically high 4.20-5.40 [facility] Comment on above: Performed By: #### C BC ####[facility] Jycbotvjgk9284 [place] [address]Dr. Abiel Clement WBC 5.7 103/ul Normal 4.0-11.0 Comment on above: Performed By: #### C BC ####[facility] [address]mkvteuzt26[address] [place] [address]DrKasia Abiel Urbano LIPASEon 11-03-2021 Lipase [Catalytic activity/Vol] 32.0 U/L Normal 23.0-300.0 Comment on above: Performed By: #### C BENNY PEDERSEN LIPA ####[facility] Fnkkxmtple86[address] [place] [address]DrKasia Clement PROF 14(COMP METB)on 022 Albumin [Mass/Vol] 3.6 g/dL Normal 3.5-5.0 [facility] Comment on above: Performed By: #### C BENNY PEDERSEN, LIPA ####[facility] Bmjfsmvibx7[address] [place] [address]Dr. Abiel Urbano Albumin/Globulin [Mass ratio] 0.8 {ratio} Normal Comment on above: Performed By: #### C MP, BENNY, LIPA ####[facility] Eysvbeosae87[address] [place] [address]Dr. Abiel Urbano ALP [Catalytic activity/Vol] 325 U/L Critically high 38-126 Comment on above: Performed By: #### C MP, BENNY, LIPA ####[facility] Wuskegnroo52[address] [place] [address]Dr. Abiel Clement ALT [Catalytic activity/Vol] 103 U/L Critically high 9-52 Comment on above: Performed By: #### C MP, BENNY, LIPA ####[facility] Lqrbxjktdc7350 [place] [address]Dr. Abiel Clement Anion gap [Moles/Vol] 13.1 mmol/L Normal [facility] Comment on above: Performed By: #### C MP, BENNY, LIPA ####[facility] Pwsrvpsurg[address] [place], [place] [address]Dr. Suyapaviviana Clement AST [Catalytic activity/Vol] 78 U/L Critically high 14-36 Comment on above: Performed By: #### C MP, BENNY, LIPA ####[facility] Ssqrutnbmv3858 [place] [address]Dr. Abiel Clement Bilirubin [Mass/Vol] 0.4 mg/dL Normal 0.2-1.3 Comment on above: Performed By: #### C MP, BENNY, LIPA ####[facility] Kspbwiivbt8999 [place] [address]Dr. Abiel Clement Calcium [Mass/Vol] 9.6 mg/dL Normal 8.4-10.2 [facility] Comment on above: Performed By: #### C MP, BENNY, LIPA ####[facility] Qmiygxvwyv3157 [place] [address]Dr. Abiel Clement Chloride [Moles/Vol] 102 mmol/L Normal 98-107 [facility] Comment on above: Performed By: #### C BENNY PEDERSEN, LIPA ####[facility] Jxprndkfkm7028 [place] [address]Dr. Abiel Clement CO2 [Moles/Vol] 21.5 mmol/L Critically low 22.0-30.0 Comment on above: Performed By: #### C BENNY PEDERSEN LIPA ####[facility] [address] [place] [address]Dr. Abiel Clement Creatinine [Mass/Vol] 1.51 mg/dL Critically high 0.52-1.04 [facility] Comment on above: Performed By: #### C BENNY PEDERSEN, LIPA ####[facility] [address] [place], [place] [address]Dr. Abiel Clement EGFR-AF RWANDAN 42 mL/min/1.73m2 Critically low >=60 [facility] Comment on above: Performed By: #### C BENNY PEDERSEN LIPA ####[facility] [address] [place] [address]Dr. Abiel Clement EGFR-NON AF RWANDAN 35 mL/min/1.73m2 Critically low >=60 [facility] Comment on above: Performed By: #### C BENNY PEDERSEN, LIPA ####[facility] [address] [place] [address]Dr. Abiel Clement Globulin (S) [Mass/Vol] 4.5 g/dL Normal [facility] Comment on above: Performed By: #### C BENNY PEDERSEN, LIPA ####[facility] [address] [place] [address]Dr. Abiel Clement Glucose [Mass/Vol] 167 mg/dL Critically high 74-106 T [facility] Comment on above: Performed By: #### C BENNY PEDERSEN, LIPA ####[facility] [address] [place] [address]Dr. Abiel Clement Potassium [Moles/Vol] 4.6 mmol/L Normal 3.4-5.0 [facility] Comment on above: Performed By: #### C BENNY PEDERSEN, LIPA ####[facility] [address] [place] [id number]. Abiel Clement Protein [Mass/Vol] 8.1 g/dL Normal 6.1-8.2 [facility] Comment on above: Performed By: #### C MP, BENNY, LIPA ####[facility] [address] [place] [id number]. Abiel Clement Sodium [Moles/Vol] 132 mmol/L Critically low 137-145 Th [facility] Comment on above: Performed By: #### C MP, BENNY, LIPA ####[facility] [address] [place] [address]Dr. Abiel Clement Urea nitrogen [Mass/Vol] 35.0 mg/dL Critically high 7.0-17.0 Comment on above: Performed By: #### C SLAVA, BENNY, LIPA ####[facility] [address] [place] [address]Dr. Abiel Clement Urea nitrogen/Creatinine [Mass ratio] 23.2 mg/mg Normal Comment on above: Performed By: #### C SLAVA, BENNY, LIPA ####[facility] [address] [place] [address]Dr. Abiel Clement XR ABD FLAT UP_PA Tl 11-03 XR ABD FLAT UP_PA CH Normal [facility] XR FOOT LT MIN 3 VIEWSon XR FOOT LT MIN 3 VIEWS Normal [facility] COMPREHENSIVE METABOLIC PANE Neftali 09-23-2021 Albumin [Mass/Vol] 4.1 g/dL Normal 3.6-5.1 [facility] Comment on above: Performed By: #### 1 023, 3110 #### [facility] [address] [address] [employer]ist: Christian Dove MD Albumin/Globulin [Mass ratio] 1.2 {ratio} Normal 1.0-2.5 [facility] Comment on above: Performed By: #### 1 0231, 0 #### [facility] [address] [place] [address] [employer]ist: Christian Dove MD ALP [Catalytic activity/Vol] 206 U/L High 37-153 [facility] Comment on above: Performed By: #### 1 0231, 7600 #### [facility] of [address], [address] [place] [address] [employer]ist: Christian Dove MD ALT [Catalytic activity/Vol] 32 U/L High 6-29 [facility] Comment on above: Result Comment: NO C OLLECTION DATE RECEIVED. WE HAVE USED THE DATE THE SPECIMEN WAS RECEIVED BY THIS LABORATORY THE COLLECTION DATE. IF THIS IS INCORRECT, PLEASE CONTACT CLIENT SERVICES. PHONE NUMBER: [phone] Performed By: #### 1 0231, 7600 #### [facility] of [address], [address] [place] [address] [employer]ist: Christian Dove MD AST [Catalytic activity/Vol] 28 U/L Normal 10-35 [facility] Comment on above: Performed By: #### 1 0231, 7600 #### [facility] of [address], [address] [place] [address] [employer] Specialist: Christian Dove MD Bilirubin [Mass/Vol] 0.5 mg/dL Normal 0.2-1.2 [facility] Comment on above: Performed By: #### 1 0231, 7600 #### [facility] of [address], [address] [place] [address] [employer] Specialist: Christian Dove MD BUN/CREATININE RATIO NOT APPLICABLE Normal 6-22 [facility] Comment on above: Performed By: #### 1 0231, 7600 #### [facility] of [address], [address] [place] [address] [employer]ist: Christian Dove MD Calcium [Mass/Vol] 9.6 mg/dL Normal 8.6-10.4 [facility] Comment on above: Performed By: #### 1 0231, 7600 #### [facility] of [address], [address] [place] [address] [employer] Specialist: Christian Dove MD Chloride [Moles/Vol] 101 mmol/L Normal 98-110 [facility] Comment on above: Performed By: #### 1 023, 7600 #### [facility] [place] [address] [employer] Specialist: Christian Dove MD CO2 [Moles/Vol] 27 mmol/L Normal 20-32 [facility] Comment on above: Performed By: #### 1 023, 7600 #### [facility] [place] [address] [employer] Specialist: Christian Dove MD Creatinine [Mass/Vol] 0.88 mg/dL Normal 0.50-0.[address] [facility] [address] [facility] Comment on above: Result Comment: For patients >49 years of age, the reference limit for Creatinine is approximately 13% higher for people identified as -Albanian. Performed By: #### 1 230, 0 #### [facility] [place] [address] [employer]ist: Christian Dove MD eGFR NON-AFR. RWANDAN 71 mL/min/1.73m2 Normal > OR = 60 [facility] Comment on above: Performed By: #### 1 230, 7600 #### [facility] [place] [address] [employer] Specialist: Christian Dove MD GFR/1.73 sq M.predicted among blacks MDRD (S/P/Bld) [Vol rate/Area] 82 mL/min/{1.73_m2} Normal > OR = 60 [facility] Comment on above: Performed By: #### 1 023, 7600 #### [facility] [place] [address] [employer] Specialist: Christian Dove MD Globulin (S) [Mass/Vol] 3.3 g/dL Normal 1.9-3.7 [facility] Comment on above: Performed By: #### 1 230, 7600 #### [facility] [address] [place] [address] [employer]ist: Christian Dove MD Glucose [Mass/Vol] 269 mg/dL High 65-99 [facility] Comment on above: Result Comment: Fasting reference interval For someone without known diabetes, a glucose value >125 mg/dL indicates that they may have diabetes and this should be confirmed with a follow-up test. Performed By: #### 1 0231, 7600 #### [facility] [address], [address] [place] [address] [employer]ist: Christian Dove MD Potassium [Moles/Vol] 4.3 mmol/L Normal 3.5-5.[address] [facility] Comment on above: Performed By: #### 1 023, 7600 #### [facility] [place] [address] [employer] Specialist: Christian Dove MD Protein [Mass/Vol] 7.4 g/dL Normal 6.1-8.1 [facility] Comment on above: Performed By: #### 1 023, 0 #### [facility] [place] [address] [employer] Specialist: Christian Dove MD Sodium [Moles/Vol] 135 mmol/L Normal 135-146 [facility] Comment on above: Performed By: #### 1 023, 7600 #### [facility] [place] [address] [employer] Specialist: Christian Dove MD Urea nitrogen [Mass/Vol] 18 mg/dL Normal 7-25 [facility] Comment on above: Performed By: #### 1 0231, 7600 #### [facility] [place] [address] [employer] Specialist: Christian Dove MD LIPID PANEL, STANDARD 09-05 Cholesterol [Mass/Vol] 123 mg/dL Normal <200 [facility] Comment on above: Performed By: #### 1 0231, 7600 #### [facility] [place] [address] [employer] Specialist: Christian Dove MD Cholesterol in HDL [Mass/Vol] 36 mg/dL Low > OR = 50 [facility] Comment on above: Performed By: #### 1 023, 7600 #### [facility] [place] [address] [employer] Specialist: Christian Dvoe MD Cholesterol in LDL [Mass/Vol] 65 mg/dL [...] Ciro PENN et al. MARIA T. 2013;310(19): 4472-5882 ([email or web address]/[email or web address]) Performed By: #### 1 023, 0 #### [facility] [address], [address] [place] [address] [employer]ist: Christian Dove MD Cholesterol.total/Cho lesterol in HDL [Mass ratio] 3.4 {ratio} Normal <5.0 [facility] Comment on above: Performed By: #### 1 023, 0 #### [facility] [place] [address] [employer] Specialist: Christian Dove MD NON HDL CHOLESTEROL 87 mg/dL (calc) Normal <130 [facility] Comment on above: Result Comment: For patients with diabetes plus 1 major ASCVD risk factor, treating to a non-HDL-C goal of <100 mg/dL (LDL-C of <70 mg/dL) is considered a therapeutic option. Performed By: #### 1 023, 7600 #### [facility] [place] [address] [employer] Specialist: Christian Dove MD Triglyceride [Mass/Vol] 134 mg/dL Normal <150 [facility] Comment on above: Performed By: #### 1 0231, 5970 #### [facility] [address], [address] [place] [address] [employer]ist: Christian Dove MD COVID Quick Testingon 2020 Result Positive [place] Other POC GLUCOSE LABon 07-14-2020 Glucose [Mass/Vol] 311 mg/dL High 70-100 [facility] Comment on above: Performed By: #### 8 5499 #### [facility] [address] [place] [address], [place] Glucose [Mass/Vol] 231 mg/dL High 70-100 [facility] Comment on above: Performed By: #### 8 5499 #### [facility] [address] [place] [address], [place] POC GLUCOSE LABon 07-13-2020 Glucose [Mass/Vol] 173 mg/dL High 70-100 [facility] Comment on above: Performed By: #### 8 5499 #### [facility] [address] [place] [address], [place] Glucose [Mass/Vol] 117 mg/dL High 70-100 [facility] Comment on above: Performed By: #### 3 1792 #### [facility] [address] [place] [address], [place] Glucose [Mass/Vol] 282 mg/dL High 70-100 [facility] Comment on above: Performed By: #### 8 5499 #### [facility] [address] [place] [address], [place] Glucose [Mass/Vol] 288 mg/dL High 70-100 [facility] Comment on above: Performed By: #### 8 5499 ####[facility] [place] [address], [place] POC GLUCOSE LABon 07-12-2020 Glucose [Mass/Vol] 281 mg/dL High 70-100 [facility] Comment on above: Performed By: #### 8 5499 ####[facility] [place] [address], [place] Glucose [Mass/Vol] 102 mg/dL High 70-100 [facility] Comment on above: Performed By: #### 8 5499 ####[facility] [place] [address], [place] Glucose [Mass/Vol] 213 mg/dL High 70-100 [facility] Comment on above: Performed By: #### 8 5499 ####[facility] [place] [address], [place] Glucose [Mass/Vol] 195 mg/dL High 70-100 [facility] Comment on above: Performed By: #### 3 1792 #### [facility] [address] [place] [address], [place] POC GLUCOSE LABon 07-11-2020 Glucose [Mass/Vol] 221 mg/dL High 70-100 [facility] Comment on above: Performed By: #### 8 5499 #### [facility] [address] [place] [address], [place] Glucose [Mass/Vol] 201 mg/dL High 70-100 [facility] Comment on above: Performed By: #### 0 0071, 82453 #### [facility] [address] [place] [address], [place] Glucose [Mass/Vol] 279 mg/dL High 70-100 [facility] Comment on above: Performed By: #### 8 5499 ####[facility] [place] [address], [place] Glucose [Mass/Vol] 214 mg/dL High 70-100 [facility] Comment on above: Performed By: #### 3 1792 #### [facility] [address] [place] [address], [place] POC GLUCOSE LABon 07-10-2020 Glucose [Mass/Vol] 207 mg/dL High 70-100 [facility] Comment on above: Performed By: #### 8 5499 #### [facility] [address] [place] [address], [place] Glucose [Mass/Vol] 119 mg/dL High 70-100 [facility] Comment on above: Performed By: #### 8 5499 #### [facility] [address] [place] [address], [place] Glucose [Mass/Vol] 282 mg/dL High 70-100 [facility] Comment on above: Performed By: #### 8 5499 #### [facility] [address] [place] [address], [place] Glucose [Mass/Vol] 212 mg/dL High 70-100 [facility] Comment on above: Performed By: #### 8 5499 #### [facility] [address] [place] [address], [place] POC GLUCOSE LABon 07-09-2020 Glucose [Mass/Vol] 134 mg/dL High 70-100 [facility] Comment on above: Performed By: #### 8 5499 ####[facility] [place] [address], [place] Glucose [Mass/Vol] 113 mg/dL High 70-100 [facility] Comment on above: Performed By: #### 8 5499 ####[facility] [place] [address], [place] Glucose [Mass/Vol] 158 mg/dL High 70-100 [facility] Comment on above: Performed By: #### 8 5499 ####[facility] [place] [address], [place] Glucose [Mass/Vol] 146 mg/dL High 70-100 The [facility] Comment on above: Performed By: #### 3 1792 #### [facility] [address] [place] [address], [place] BASIC METABOLIC PANELon 11-0 Calcium [Mass/Vol] 9.4 mg/dL Normal 8.6-10.3 The [facility] Comment on above: Order Comment: No: D o not add to previous draw Performed By: #### 0 0071, 31108 #### [facility] [address] [place] [address], [place] Chloride [Moles/Vol] 102 mmol/L Normal 98-107 [facility] Comment on above: Order Comment: No: D o not add to previous draw Performed By: #### 0 0071, 39878 #### [facility] [address] [place] [address], [place] CO2 [Moles/Vol] 28 mmol/L Normal 21-31 The [facility] Comment on above: Order Comment: No: D o not add to previous draw Performed By: #### 0 0071, 04798 #### [facility] [address] [place] [address], [place] Creatinine [Mass/Vol] 0.73 mg/dL Normal 0.60-1.20 [facility] Comment on above: Order Comment: No: D o not add to previous draw Performed By: #### 0 0071, 85879 #### [facility] [address] [place] [address], [place] GFR/1.73 sq M predicted among blacks MDRD (S/P/Bld) [Vol rate/Area] mL/min/{1.73_m2} Normal >60 [facility] Comment on above: Order Comment: No: D o not add to previous draw Performed By: #### 0 0071, 01721 #### [facility] [address] [place] [address], [facility] GFR/1.73 sq M predicted among non-blacks MDRD (S/P/Bld) [Vol rate/Area] mL/min/{1.73_m2} Normal >60 [facility] Comment on above: Order Comment: No: D o not add to previous draw Performed By: #### 0 0071, 08289 #### [facility] [address] [place] [address], [facility] Glucose [Mass/Vol] 162 mg/dL High 70-100 The [facility] Comment on above: Order Comment: No: D o not add to previous draw Performed By: #### 0 0071, 96084 #### [facility] [address] [place] [address], [facility] Potassium [Moles/Vol] 3.8 mmol/L Normal 3.5-5.1 [facility] Comment on above: Order Comment: No: D o not add to previous draw Performed By: #### 0 0071, 96966 #### [facility] [address] [place] [address], [facility] Sodium [Moles/Vol] 138 mmol/L Normal 136-145 The [facility] Comment on above: Order Comment: No: D o not add to previous draw Performed By: #### 0 0071, 02330 #### [facility] [address] [place] [address], [facility] Urea nitrogen [Mass/Vol] 15 mg/dL Normal 7-25 [facility] Comment on above: Order Comment: No: D o not add to previous draw Performed By: #### 0 0071, 07559 #### [facility] [address] [place] [address], [place] CBC W/DIFFon 07-08-2020 ABS BASOPHILS 0.1 10*3/uL Normal 0.0-0.2 The [facility] Comment on above: Order Comment: No: D o not add to previous draw Performed By: #### 8 5499 #### [facility] [address] [place] [address], [facility] ABS IMM GRANS 0.0 10*3/uL Normal 0.0-0.2 [facility] Comment on above: Order Comment: No: D o not add to previous draw Performed By: #### 8 5499 #### [facility] [address] [place] [address], [place] ABS NEUTROPHILS 3.5 10*3/uL Normal 1.6-7.6 The [facility] Comment on above: Order Comment: No: D o not add to previous draw Performed By: #### 8 5499 #### [facility] [address] [place] [address], [facility] Basophils/100 WBC (Bld) 0.9 % Normal 0.0-1.0 [facility] Comment on above: Order Comment: No: D o not add to previous draw Performed By: #### 8 5499 #### [facility] [address] [place] [address], [place] Eosinophils (Bld) [#/Vol] 0.3 10*3/uL Normal 0.0-0.5 [facility] Comment on above: Order Comment: No: D o not add to previous draw Performed By: #### 8 5499 #### [facility] [address] [place] [address], [place] Eosinophils/100 WBC (Bld) 3.9 % Normal 0.0-6.0 [facility] Comment on above: Order Comment: No: D o not add to previous draw Performed By: #### 8 5499 #### [facility] [address] [place] [address], [place] Erythrocyte distribution width (RBC) [Ratio] 15.1 % High 11.5-15.0 [facility] Comment on above: Order Comment: No: D o not add to previous draw Performed By: #### 8 5499 #### [facility] [address] [place] [address], [facility] Hematocrit (Bld) [Volume fraction] 41.0 % Normal 36.0-45.0 [facility] Comment on above: Order Comment: No: D o not add to previous draw Performed By: #### 8 5499 #### [facility] [address] [place] [address], [facility] Hemoglobin (Bld) [Mass/Vol] 13.0 g/dL Normal 12.0-15.0 [facility] Comment on above: Order Comment: No: D o not add to previous draw Performed By: #### 8 5499 #### [facility] [address] [place] [address], [facility] IMMATURE GRANS 0.5 % Normal 0.0-1.0 The [facility] Comment on above: Order Comment: No: D o not add to previous draw Performed By: #### 8 5499 #### [facility] [address] [place] [address], [facility] Lymphocytes (Bld) [#/Vol] 1.8 10*3/uL Normal 1.2-4.0 [facility] Comment on above: Order Comment: No: D o not add to previous draw Performed By: #### 8 5499 #### [facility] [address] [place] [address], [place] Lymphocytes/100 WBC (Bld) 28.2 % Normal 20.0-45.0 [facility] Comment on above: Order Comment: No: D o not add to previous draw Performed By: #### 8 5499 #### [facility] [address] [place] [address], [place] MCH (RBC) [Entitic mass] 28.6 pg Normal 27.0-33.0 [facility] Comment on above: Order Comment: No: D o not add to previous draw Performed By: #### 8 5499 #### [facility] [address] [place] [address], [facility] MCHC (RBC) [Mass/Vol] 31.7 g/dL Low 32.0-35.0 [facility] Comment on above: Order Comment: No: D o not add to previous draw Performed By: #### 8 5499 #### [facility] [address] [place] [address], [facility] MCV (RBC) [Entitic vol] 90.3 fL Normal 82.0-98.0 [facility] Comment on above: Order Comment: No: D o not add to previous draw Performed By: #### 8 5499 #### [facility] [address] [place] [address], [facility] Monocytes (Bld) [#/Vol] 0.7 10*3/uL Normal 0.1-1.0 [facility] Comment on above: Order Comment: No: D o not add to previous draw Performed By: #### 8 5499 #### [facility] [address] [place] [address], [facility] MONOS 11.1 % Normal 5.0-12.0 [facility] Comment on above: Order Comment: No: D o not add to previous draw Performed By: #### 8 5499 #### [facility] [address] [place] [address], [facility] Neutrophils/100 WBC (Bld) 55.4 % Normal 40.0-72.0 [facility] Comment on above: Order Comment: No: D o not add to previous draw Performed By: #### 8 [id number] #### [facility] [address] [place] [address], [facility] Nucleated RBC/100 WBC (Bld) [Ratio] 0 % Normal 0-0 [facility] Comment on above: Order Comment: No: D o not add to previous draw Performed By: #### 8 [id number] #### [facility] [address] [place] [address], [place] PLAT CNT 230 10*3/uL Normal 150-400 The [facility] Comment on above: Order Comment: No: D o not add to previous draw Performed By: #### 8 [id number] #### [facility] [address] [place] [address], [place] RBC (Bld) [#/Vol] 4.54 10*6/uL Normal 3.80-5.00 The [facility] Comment on above: Order Comment: No: D o not add to previous draw Performed By: #### 8 5499 #### [facility] [address] [place] [address], [place] WBC (Bld) [#/Vol] 6.38 10*3/uL Normal 4.00-10.60 [facility] Comment on above: Order Comment: No: D o not add to previous draw Performed By: #### 8 [id number] #### [facility] [address] [place] [address], [place] POC GLUCOSE LABon 07-08-2020 Glucose [Mass/Vol] 164 mg/dL High 70-100 The [facility] Comment on above: Performed By: #### 8 5499 #### [facility] [address] [place] [address], [place] Glucose [Mass/Vol] 137 mg/dL High 70-100 The [facility] Comment on above: Performed By: #### 8 [id number] ####[facility] [place] [address], [place] Glucose [Mass/Vol] 247 mg/dL High 70-100 The [facility] Comment on above: Performed By: #### 8 [id number] ####[facility] [place] [address], [place] Glucose [Mass/Vol] 154 mg/dL High 70-100 [facility] Comment on above: Performed By: #### 8 [id number] ####[facility] [place] [address], [place] Glucose [Mass/Vol] 158 mg/dL High 70-100 [facility] Comment on above: Performed By: #### 8 [id number] #### [facility] [address] [place] [address], [place] POC GLUCOSE LABon 07-07-2020 Glucose [Mass/Vol] 144 mg/dL High 70-100 [facility] Comment on above: Performed By: #### 3 1792 #### [facility] [address] [place] [address], [place] Glucose [Mass/Vol] 184 mg/dL High 70-100 [facility] Comment on above: Performed By: #### 8 [id number] ####[facility] [place] [address], [place] Glucose [Mass/Vol] 171 mg/dL High 70-100 [facility] Comment on above: Performed By: #### 8 [id number] ####[facility] [place] [address], [place] Glucose [Mass/Vol] 98 mg/dL Normal 70-100 [facility] Comment on above: Performed By: #### 8 [id number] #### [facility] [address] [place] [address], [place] POC GLUCOSE LABon 07-06-2020 Glucose [Mass/Vol] 220 mg/dL High 70-100 [facility] Comment on above: Performed By: #### 8 [id number] ####[facility] [place] [address], [place] Glucose [Mass/Vol] 215 mg/dL High 70-100 [facility] Comment on above: Performed By: #### 8 [id number] ####[facility] [place] [address], [place] Glucose [Mass/Vol] 288 mg/dL High 70-100 [facility] Comment on above: Performed By: #### 3 1792 #### [facility] [address] [place] [address], [place] POC GLUCOSE LABon 07-05-2020 Glucose [Mass/Vol] 111 mg/dL High 70-100 [facility] Comment on above: Performed By: #### 8 [id number] #### [facility] [address] [place] [address], [place] Glucose [Mass/Vol] 144 mg/dL High 70-100 [facility] Comment on above: Performed By: #### 8 [id number] #### [facility] [address] [place] [address], [place] Glucose [Mass/Vol] 151 mg/dL High 70-100 [facility] Comment on above: Performed By: #### 8 [id number] ####[facility] [place] [address], [place] Glucose [Mass/Vol] 157 mg/dL High 70-100 [facility] Comment on above: Performed By: #### 8 [id number] ####[facility] [place] [address], [place] Glucose [Mass/Vol] 154 mg/dL High 70-100 [facility] Comment on above: Performed By: #### 8 [id number] ####[facility] [place] [address], [place] BASIC METABOLIC PANELon 10-3 Calcium [Mass/Vol] 9.2 mg/dL Normal 8.6-10.3 [facility] Comment on above: Order Comment: No: D o not add to previous draw Performed By: #### 0 0071, 87021 #### [facility] [address] [place] [address], [place] Chloride [Moles/Vol] 101 mmol/L Normal 98-107 The [facility] Comment on above: Order Comment: No: D o not add to previous draw Performed By: #### 0 0071, 80636 #### [facility] [address] [place] [address], [place] CO2 [Moles/Vol] 26 mmol/L Normal 21-31 The [facility] Comment on above: Order Comment: No: D o not add to previous draw Performed By: #### 0 0071, [id number] #### [facility] [address] [place] [address], [place] Creatinine [Mass/Vol] 0.75 mg/dL Normal 0.60-1.20 The [facility] Comment on above: Order Comment: No: D o not add to previous draw Performed By: #### 0 0071, 82822 #### [facility] [address] [place] [address], [place] GFR/1.73 sq M predicted among blacks MDRD (S/P/Bld) [Vol rate/Area] mL/min/{1.73_m2} Normal >60 The [facility] Comment on above: Order Comment: No: D o not add to previous draw Performed By: #### 0 0071, [id number] #### [facility] [address] [place] [address], [place] GFR/1.73 sq M predicted among non-blacks MDRD (S/P/Bld) [Vol rate/Area] mL/min/{1.73_m2} Normal >60 The [facility] Comment on above: Order Comment: No: D o not add to previous draw Performed By: #### 0 0071, [id number] #### [facility] [address] [place] [address], [facility] Glucose [Mass/Vol] 343 mg/dL High 70-100 The [facility] Comment on above: Order Comment: No: D o not add to previous draw Performed By: #### 0 0071, 23093 #### [facility] [address] [place] [address], [facility] Potassium [Moles/Vol] 3.6 mmol/L Normal 3.5-5.1 The [facility] Comment on above: Order Comment: No: D o not add to previous draw Performed By: #### 0 0071, [id number] #### [facility] [address] [place] [address], [facility] Sodium [Moles/Vol] 137 mmol/L Normal 136-145 The [facility] Comment on above: Order Comment: No: D o not add to previous draw Performed By: #### 0 0071, [id number] #### [facility] [address] [place] [address], [facility] Urea nitrogen [Mass/Vol] 15 mg/dL Normal 7-25 The [facility] Comment on above: Order Comment: No: D o not add to previous draw Performed By: #### 0 0071, 92076 #### [facility] [address] [place] [address], [facility] CBC W/DIFFon 07-04-2020 ABS BASOPHILS 0.0 10*3/uL Normal 0.0-0.2 The [facility] Comment on above: Order Comment: No: D o not add to previous draw Performed By: #### 8 [id number] #### [facility] [address] [place] [address], [facility] ABS IMM GRANS 0.0 10*3/uL Normal 0.0-0.2 The [facility] Comment on above: Order Comment: No: D o not add to previous draw Performed By: #### 8 [id number] #### [facility] [address] [place] [address], [facility] ABS NEUTROPHILS 4.0 10*3/uL Normal 1.6-7.6 The [facility] Comment on above: Order Comment: No: D o not add to previous draw Performed By: #### 8 [id number] #### [facility] [address] [place] [address], [place] Basophils/100 WBC (Bld) 0.7 % Normal 0.0-1.0 [facility] Comment on above: Order Comment: No: D o not add to previous draw Performed By: #### 8 [id number] #### [facility] [address] [place] [address], [facility] Eosinophils (Bld) [#/Vol] 0.3 10*3/uL Normal 0.0-0.5 [facility] Comment on above: Order Comment: No: D o not add to previous draw Performed By: #### 8 [id number] #### [facility] [address] [place] [address], [facility] Eosinophils/100 WBC (Bld) 4.7 % Normal 0.0-6.0 [facility] Comment on above: Order Comment: No: D o not add to previous draw Performed By: #### 8 [id number] #### [facility] [address] [place] [address], [facility] Erythrocyte distribution width (RBC) [Ratio] 15.0 % Normal 11.5-15.0 [facility] Comment on above: Order Comment: No: D o not add to previous draw Performed By: #### 8 [id number] #### [facility] [address] [place] [address], [facility] Hematocrit (Bld) [Volume fraction] 38.0 % Normal 36.0-45.0 [facility] Comment on above: Order Comment: No: D o not add to previous draw Performed By: #### 8 [id number] #### [facility] [address] [place] [address], [facility] Hemoglobin (Bld) [Mass/Vol] 12.4 g/dL Normal 12.0-15.0 [facility] Comment on above: Order Comment: No: D o not add to previous draw Performed By: #### 8 [id number] #### [facility] [address] [place] [address], [facility] IMMATURE GRANS 0.3 % Normal 0.0-1.0 [facility] Comment on above: Order Comment: No: D o not add to previous draw Performed By: #### 8 [id number] #### [facility] [address] [place] [address], [facility] Lymphocytes (Bld) [#/Vol] 1.1 10*3/uL Low 1.2-4.0 [facility] Comment on above: Order Comment: No: D o not add to previous draw Performed By: #### 8 [id number] #### [facility] [address] [facility] [place] [address], [facility] Lymphocytes/100 WBC (Bld) 18.1 % Low 20.0-45.0 [facility] Comment on above: Order Comment: No: D o not add to previous draw Performed By: #### 8 [id number] #### [facility] [address] [facility] [place] [address], [facility] MCH (RBC) [Entitic mass] 29.1 pg Normal 27.0-33.0 [facility] Comment on above: Order Comment: No: D o not add to previous draw Performed By: #### 8 [id number] #### [facility] [address] [facility] [place] [id number], [facility] MCHC (RBC) [Mass/Vol] 32.6 g/dL Normal 32.0-35.0 [facility] Comment on above: Order Comment: No: D o not add to previous draw Performed By: #### 8 [id number] #### [facility] [address] [place] [address], [facility] MCV (RBC) [Entitic vol] 89.2 fL Normal 82.0-98.0 [facility] Comment on above: Order Comment: No: D o not add to previous draw Performed By: #### 8 [id number] #### [facility] [address] [place] [address], [facility] Monocytes (Bld) [#/Vol] 0.6 10*3/uL Normal 0.1-1.0 [facility] Comment on above: Order Comment: No: D o not add to previous draw Performed By: #### 8 [id number] #### [facility] [address] [place] [address], [facility] MONOS 9.6 % Normal 5.0-12.0 [facility] Comment on above: Order Comment: No: D o not add to previous draw Performed By: #### 8 [id number] #### [facility] [address] [facility] [place] [address], [facility] Neutrophils/100 WBC (Bld) 66.6 % Normal 40.0-72.0 [facility] Comment on above: Order Comment: No: D o not add to previous draw Performed By: #### 8 [id number] #### [facility] [address] [facility] [place] [address], [facility] Nucleated RBC/100 WBC (Bld) [Ratio] 0 % Normal 0-0 [facility] Comment on above: Order Comment: No: D o not add to previous draw Performed By: #### 8 [id number] #### [facility] [address] [place] [id number], [place] PLAT CNT 186 10*3/uL Normal 150-400 [facility] Comment on above: Order Comment: No: D o not add to previous draw Performed By: #### 8 [id number] #### [facility] [address] [place] [address], [facility] RBC (Bld) [#/Vol] 4.26 10*6/uL Normal 3.80-5.00 [facility] Comment on above: Order Comment: No: D o not add to previous draw Performed By: #### 8 [id number] #### [facility] [address] [place] [address], [place] WBC (Bld) [#/Vol] 5.96 10*3/uL Normal 4.00-10.60 [facility] Comment on above: Order Comment: No: D o not add to previous draw Performed By: #### 8 [id number] #### [facility] [address] [place] [address], [place] MAGNESIUM BLOODon 07-04-2020 Magnesium [Mass/Vol] 1.7 mg/dL Low 1.9-2.7 [facility] Comment on above: Order Comment: No: D o not add to previous draw Performed By: #### 0 0071, 90179 #### [facility] [address] [place] [address], [place] POC GLUCOSE LABon 07-04-2020 Glucose [Mass/Vol] 143 mg/dL High 70-100 The [facility] Comment on above: Performed By: #### 8 [id number] #### [facility] [address] [place] [address], [place] Glucose [Mass/Vol] 226 mg/dL High 70-100 [facility] Comment on above: Performed By: #### 3 1792 #### [facility] [address] [place] [address], [place] Glucose [Mass/Vol] 340 mg/dL High 70-100 [facility] Comment on above: Performed By: #### 8 [id number] #### [facility] [address] [place] [address], [place] BASIC METABOLIC PANELon - Calcium [Mass/Vol] 9.1 mg/dL Normal 8.6-10.3 [facility] Comment on above: Order Comment: No: D o not add to previous draw Performed By: #### 0 0071, 56504 #### [facility] [address] [place] [address], [place] Chloride [Moles/Vol] 104 mmol/L Normal 98-107 [facility] Comment on above: Order Comment: No: D o not add to previous draw Performed By: #### 0 0071, 38821 #### [facility] [address] [place] [address], [place] CO2 [Moles/Vol] 27 mmol/L Normal 21-31 The [facility] Comment on above: Order Comment: No: D o not add to previous draw Performed By: #### 0 0071, 84024 #### [facility] [address] [place] [address], [place] Creatinine [Mass/Vol] 0.69 mg/dL Normal 0.60-1.20 [facility] Comment on above: Order Comment: No: D o not add to previous draw Performed By: #### 0 0071, 21872 #### [facility] [address] [place] [address], [place] GFR/1.73 sq M predicted among blacks MDRD (S/P/Bld) [Vol rate/Area] mL/min/{1.73_m2} Normal >60 [facility] Comment on above: Order Comment: No: D o not add to previous draw Performed By: #### 0 0071, [id number] #### [facility] [address] [place] [address], [place] GFR/1.73 sq M predicted among non-blacks MDRD (S/P/Bld) [Vol rate/Area] mL/min/{1.73_m2} Normal >60 [facility] Comment on above: Order Comment: No: D o not add to previous draw Performed By: #### 0 0071, 22456 #### [facility] [address] [place] [address], [facility] Glucose [Mass/Vol] 192 mg/dL High 70-100 The [facility] Comment on above: Order Comment: No: D o not add to previous draw Performed By: #### 0 0071, 49799 #### [facility] [address] [place] [address], [facility] Potassium [Moles/Vol] 3.2 mmol/L Low 3.5-5.1 [facility] Comment on above: Order Comment: No: D o not add to previous draw Performed By: #### 0 0071, 48780 #### [facility] [address] [place] [address], [facility] Sodium [Moles/Vol] 139 mmol/L Normal 136-145 The [facility] Comment on above: Order Comment: No: D o not add to previous draw Performed By: #### 0 0071, 09833 #### [facility] [address] [place] [address], [facility] Urea nitrogen [Mass/Vol] 13 mg/dL Normal 7-25 [facility] Comment on above: Order Comment: No: D o not add to previous draw Performed By: #### 0 0071, 14228 #### [facility] [address] [place] [address], [facility] CBC W/DIFFon 07-03-2020 ABS BASOPHILS 0.1 10*3/uL Normal 0.0-0.2 The [facility] Comment on above: Order Comment: No: D o not add to previous draw Performed By: #### 8 [id number] #### [facility] [address] [place] [address], [facility] ABS IMM GRANS 0.0 10*3/uL Normal 0.0-0.2 [facility] Comment on above: Order Comment: No: D o not add to previous draw Performed By: #### 8 [id number] #### [facility] [address] [place] [address], [facility] ABS NEUTROPHILS 3.7 10*3/uL Normal 1.6-7.6 The [facility] Comment on above: Order Comment: No: D o not add to previous draw Performed By: #### 8 [id number] #### [facility] [address] [place] [address], [place] Basophils/100 WBC (Bld) 0.8 % Normal 0.0-1.0 [facility] Comment on above: Order Comment: No: D o not add to previous draw Performed By: #### 8 [id number] #### [facility] [address] [place] [address], [facility] Eosinophils (Bld) [#/Vol] 0.3 10*3/uL Normal 0.0-0.5 [facility] Comment on above: Order Comment: No: D o not add to previous draw Performed By: #### 8 [id number] #### [facility] [address] [place] [address], [facility] Eosinophils/100 WBC (Bld) 4.4 % Normal 0.0-6.0 [facility] Comment on above: Order Comment: No: D o not add to previous draw Performed By: #### 8 [id number] #### [facility] [address] [place] [id number], [facility] Erythrocyte distribution width (RBC) [Ratio] 14.7 % Normal 11.5-15.0 [facility] Comment on above: Order Comment: No: D o not add to previous draw Performed By: #### 8 [id number] #### [facility] [address] [place] [address], [place] Hematocrit (Bld) [Volume fraction] 38.4 % Normal 36.0-45.0 [facility] Comment on above: Order Comment: No: D o not add to previous draw Performed By: #### 8 [id number] #### [facility] [address] [place] [address], [facility] Hemoglobin (Bld) [Mass/Vol] 12.2 g/dL Normal 12.0-15.0 [facility] Comment on above: Order Comment: No: D o not add to previous draw Performed By: #### 8 [id number] #### [facility] [address] [place] [address], [facility] IMMATURE GRANS 0.5 % Normal 0.0-1.0 [facility] Comment on above: Order Comment: No: D o not add to previous draw Performed By: #### 8 [id number] #### [facility] [address] [facility] [place] [address], [facility] Lymphocytes (Bld) [#/Vol] 1.3 10*3/uL Normal 1.2-4.0 [facility] Comment on above: Order Comment: No: D o not add to previous draw Performed By: #### 8 [id number] #### [facility] [address] [facility] [place] [address], [facility] Lymphocytes/100 WBC (Bld) 22.0 % Normal 20.0-45.0 [facility] Comment on above: Order Comment: No: D o not add to previous draw Performed By: #### 8 [id number] #### [facility] [address] [facility] [place] [address], [facility] MCH (RBC) [Entitic mass] 28.6 pg Normal 27.0-33.0 [facility] Comment on above: Order Comment: No: D o not add to previous draw Performed By: #### 8 [id number] #### [facility] [address] [facility] [place] [id number], [facility] MCHC (RBC) [Mass/Vol] 31.8 g/dL Low 32.0-35.0 [facility] Comment on above: Order Comment: No: D o not add to previous draw Performed By: #### 8 [id number] #### [facility] [address] [place] [address], [facility] MCV (RBC) [Entitic vol] 90.1 fL Normal 82.0-98.0 [facility] Comment on above: Order Comment: No: D o not add to previous draw Performed By: #### 8 [id number] #### [facility] [address] [place] [address], [facility] Monocytes (Bld) [#/Vol] 0.7 10*3/uL Normal 0.1-1.0 [facility] Comment on above: Order Comment: No: D o not add to previous draw Performed By: #### 8 [id number] #### [facility] [address] [place] [address], [facility] MONOS 11.1 % Normal 5.0-12.0 [facility] Comment on above: Order Comment: No: D o not add to previous draw Performed By: #### 8 [id number] #### [facility] [address] [facility] [place] [address], [facility] Neutrophils/100 WBC (Bld) 61.2 % Normal 40.0-72.0 [facility] Comment on above: Order Comment: No: D o not add to previous draw Performed By: #### 8 [id number] #### [facility] [address] [facility] [place] [id number], [facility] Nucleated RBC/100 WBC (Bld) [Ratio] 0 % Normal 0-0 [facility] Comment on above: Order Comment: No: D o not add to previous draw Performed By: #### 8 [id number] #### [facility] [address] [place] [address], [facility] PLAT CNT 193 10*3/uL Normal 150-400 [facility] Comment on above: Order Comment: No: D o not add to previous draw Performed By: #### 8 [id number] #### [facility] [address] [place] [id number], [facility] RBC (Bld) [#/Vol] 4.26 10*6/uL Normal 3.80-5.00 [facility] Comment on above: Order Comment: No: D o not add to previous draw Performed By: #### 8 [id number] #### [facility] [address] [place] [address], [facility] WBC (Bld) [#/Vol] 5.96 10*3/uL Normal 4.00-10.60 [facility] Comment on above: Order Comment: No: D o not add to previous draw Performed By: #### 8 [id number] #### [facility] [address] [place] [address], [facility] POC GLUCOSE LABon 07-03-2020 Glucose [Mass/Vol] 161 mg/dL High 70-100 The [facility] Comment on above: Performed By: #### 8 [id number] #### [facility] [address] [place] [address], [facility] BASIC METABOLIC PANELon - Calcium [Mass/Vol] 8.5 mg/dL Low 8.6-10.3 [facility] Comment on above: Order Comment: No: D o not add to previous draw Performed By: #### 0 0071, [id number] #### [facility] [address] [place] [address], [facility] Chloride [Moles/Vol] 103 mmol/L Normal 98-107 [facility] Comment on above: Order Comment: No: D o not add to previous draw Performed By: #### 0 0071, [id number] #### [facility] [address] [place] [id number], [facility] CO2 [Moles/Vol] 24 mmol/L Normal 21-31 [facility] Comment on above: Order Comment: No: D o not add to previous draw Performed By: #### 0 0071, 44095 #### [facility] [facility] [address] [place] [address], [facility] Creatinine [Mass/Vol] 0.76 mg/dL Normal 0.60-1.20 [facility] Comment on above: Order Comment: No: D o not add to previous draw Performed By: #### 0 0071, [id number] #### [facility] [address] [place] [address], [place] GFR/1.73 sq M predicted among blacks MDRD (S/P/Bld) [Vol rate/Area] mL/min/{1.73_m2} Normal >60 [facility] Comment on above: Order Comment: No: D o not add to previous draw Performed By: #### 0 0071, 38455 #### [facility] [address] [facility] [place] [address], [facility] GFR/1.73 sq M predicted among non-blacks MDRD (S/P/Bld) [Vol rate/Area] mL/min/{1.73_m2} Normal >60 [facility] Comment on above: Order Comment: No: D o not add to previous draw Performed By: #### 0 0071, 80070 #### [facility] [address] [place] [address], [facility] Glucose [Mass/Vol] 224 mg/dL High 70-100 [facility] Comment on above: Order Comment: No: D o not add to previous draw Performed By: #### 0 0071, 80468 #### [facility] [address] [place] [address], [place] Potassium [Moles/Vol] 4.0 mmol/L Normal 3.5-5.1 [facility] Comment on above: Order Comment: No: D o not add to previous draw Performed By: #### 0 0071, 27123 #### [facility] [address] [place] [address], [place] Sodium [Moles/Vol] 134 mmol/L Low 136-145 [facility] Comment on above: Order Comment: No: D o not add to previous draw Performed By: #### 0 0071, 14294 #### [facility] [address] [place] [address], [facility] Urea nitrogen [Mass/Vol] 16 mg/dL Normal 7-25 [facility] Comment on above: Order Comment: No: D o not add to previous draw Performed By: #### 0 0071, [id number] #### [facility] [address] [place] [address], [facility] CBC W/DIFFon 07-02-2020 ABS BASOPHILS 0.1 10*3/uL Normal 0.0-0.2 [facility] Comment on above: Order Comment: No: D o not add to previous draw Performed By: #### 0 0071, 61160 #### [facility] [address] ABS IMM GRANS 0.1 10*3/uL Normal 0.0-0.2 [facility] Comment on above: Order Comment: No: D o not add to previous draw Performed By: #### 0 0071, 72186 #### [facility] [address] [place] [address], [facility] ABS NEUTROPHILS 6.5 10*3/uL Normal 1.6-7.6 The [facility] Comment on above: Order Comment: No: D o not add to previous draw Performed By: #### 0 0071, 68234 #### [facility] [address] [facility] [place] [address], [facility] Basophils/100 WBC (Bld) 0.7 % Normal 0.0-1.0 [facility] Comment on above: Order Comment: No: D o not add to previous draw Performed By: #### 0 0071, 47769 #### [facility] [address] [place] [address], [facility] Eosinophils (Bld) [#/Vol] 0.2 10*3/uL Normal 0.0-0.5 [facility] Comment on above: Order Comment: No: D o not add to previous draw Performed By: #### 0 0071, 43556 #### [facility] [address] [place] [address], [facility] Eosinophils/100 WBC (Bld) 2.5 % Normal 0.0-6.0 [facility] Comment on above: Order Comment: No: D o not add to previous draw Performed By: #### 0 0071, 25041 #### [facility] [address] [place] [address], [facility] Erythrocyte distribution width (RBC) [Ratio] 14.9 % Normal 11.5-15.0 [facility] Comment on above: Order Comment: No: D o not add to previous draw Performed By: #### 0 0071, 77050 #### [facility] [address] [place] [address], [facility] Hematocrit (Bld) [Volume fraction] 37.8 % Normal 36.0-45.0 [facility] Comment on above: Order Comment: No: D o not add to previous draw Performed By: #### 0 0071, 08854 #### [facility] [address] [place] [address], [facility] Hemoglobin (Bld) [Mass/Vol] 12.0 g/dL Normal 12.0-15.0 [facility] Comment on above: Order Comment: No: D o not add to previous draw Performed By: #### 0 0071, 23084 #### [facility] [address] [place] [address], [facility] IMMATURE GRANS 0.6 % Normal 0.0-1.0 [facility] Comment on above: Order Comment: No: D o not add to previous draw Performed By: #### 0 0071, 59567 #### [facility] [address] [place] [id number], [facility] Lymphocytes (Bld) [#/Vol] 1.0 10*3/uL Low 1.2-4.0 [facility] Comment on above: Order Comment: No: D o not add to previous draw Performed By: #### 0 0071, 60432 #### [facility] [address] [place] [address], [facility] Lymphocytes/100 WBC (Bld) 11.3 % Low 20.0-45.0 [facility] Comment on above: Order Comment: No: D o not add to previous draw Performed By: #### 0 0071, 59145 #### [facility] [address] [place] [address], [facility] MCH (RBC) [Entitic mass] 29.0 pg Normal 27.0-33.0 [facility] Comment on above: Order Comment: No: D o not add to previous draw Performed By: #### 0 0071, 31861 #### [facility] [address] [place] [address], [facility] MCHC (RBC) [Mass/Vol] 31.7 g/dL Low 32.0-35.0 [facility] Comment on above: Order Comment: No: D o not add to previous draw Performed By: #### 0 0071, 88304 #### [facility] [address] [place] [address], [facility] MCV (RBC) [Entitic vol] 91.3 fL Normal 82.0-98.0 [facility] Comment on above: Order Comment: No: D o not add to previous draw Performed By: #### 0 0071, 36098 #### [facility] [address] [place] [address], [facility] Monocytes (Bld) [#/Vol] 0.9 10*3/uL Normal 0.1-1.0 [facility] Comment on above: Order Comment: No: D o not add to previous draw Performed By: #### 0 0071, 94993 #### [facility] [address] [place] [address], [place] MONOS 10.3 % Normal 5.0-12.0 [facility] Comment on above: Order Comment: No: D o not add to previous draw Performed By: #### 0 0071, 21159 #### [facility] [address] [place] [address], [place] Neutrophils/100 WBC (Bld) 74.6 % High 40.0-72.0 [facility] Comment on above: Order Comment: No: D o not add to previous draw Performed By: #### 0 0071, 43958 #### [facility] [address] [place] [address], [place] Nucleated RBC/100 WBC (Bld) [Ratio] 0 % Normal 0-0 [facility] Comment on above: Order Comment: No: D o not add to previous draw Performed By: #### 0 0071, 57935 #### [facility] [address] [place] [address], [place] PLAT CNT 229 10*3/uL Normal 150-400 [facility] Comment on above: Order Comment: No: D o not add to previous draw Performed By: #### 0 0071, 94629 #### [facility] [address] [place] [address], [place] RBC (Bld) [#/Vol] 4.14 10*6/uL Normal 3.80-5.00 [facility] Comment on above: Order Comment: No: D o not add to previous draw Performed By: #### 0 0071, 16350 #### [facility] [address] [place] [address], [place] WBC (Bld) [#/Vol] 8.65 10*3/uL Normal 4.00-10.60 [facility] Comment on above: Order Comment: No: D o not add to previous draw Performed By: #### 0 0071, 17409 #### [facility] [address] MAGNESIUM BLOODon 07-02-2020 Magnesium [Mass/Vol] 1.8 mg/dL Low 1.9-2.7 [facility] Comment on above: Order Comment: No: D o not add to previous draw Performed By: #### 0 0071, 85802 #### [facility] [address] [facility] POC GLUCOSE LABon 07-02-2020 Glucose [Mass/Vol] 157 mg/dL High 70-100 [facility] Comment on above: Performed By: #### 8 5499 #### [facility] [address] *MRSA/MSSA CULTUREon 020 *MRSA/MSSA CULTURE Clinical [...] No previously released data found. Normal [facility] Comment on above: Performed By: #### 3 1302 #### [address] LUMBAR SPINE 2 OR 3 [facility] LUMBAR SPINE 2 OR 3 S [facility] Department of Radiology [address] [place] [address] Patient Name: MONICA ACOSTA : 1960 Sex: F Age: Race: White Pt. Location: [id number] Patient Status: I Ordered Date: 07/01/2020 7:00:00 [...] reports Electronically signed: Richard Clarke. Transcribed by: [email or web address], User Resident: BOGDAN SOTELO Electronically Signed by: RICHARD CLARKE @ 07/01/2020 08:54 PM I personally read this/these film(s) with this resident Normal [facility] Comment on above: Order Comment: No: D o not add to previous draw Operative Reporton 0 Operative Report MR#: [id number] I [facility] Pt. Name: Monica Acosta Room #: [id number] Discharge Date: Birthdate: 1960 OPERATIVE REPORT DATE OF SURGERY: 07/01/2020 SURGEON: Chilango Martinez M.D. SCALE OPERATOR: Ant Jolley M.D. PREOPERATIVE DIAGNOSIS: L1 vertebral compression fracture secondary to osteoporosis (ICD-10 M80.08XA). ANESTHESIA: General endotracheal. POSITION: Prone position on the Chris table in reverse Trendelenburg position. OPERATION: 1. L1 vertebroplasty (40872). 2. Use of intraoperative fluoroscopy (85546). POSTOPERATIVE DIAGNOSIS: [id number] compression fracture secondary to osteoporosis (ICD-10 M80.08XA). [...] Martinez M.D. Date Trans: 07/01/2020 12:25 P/ [id number] Normal [facility] POC GLUCOSE LABon 07-01-2020 Glucose [Mass/Vol] 142 mg/dL High 70-100 [facility] Comment on above: Performed By: #### 8 [id number] ####[facility] [address] Glucose [Mass/Vol] 156 mg/dL High 70-100 [facility] Comment on above: Performed By: #### 3 1792 #### [facility] [address] Glucose [Mass/Vol] 187 mg/dL High 70-100 [facility] Comment on above: Performed By: #### 3 1792 #### [facility] [address] *SARS-CoV-2 COVID-19on 06-30 [id number] Not Detected Normal Not Detected [facility] Comment on above: Order Comment: The A ptima SARS-CoV-2 assay is a nucleic acid amplification test intended for the qualitative detection of RNA from SARS-CoV-2 isolated and purified from nasopharyngeal (FACILITIES PAINTER),oropharyngeal (OP), nasal swab, sputum, and bronchoalveolar lavage (BAL) specimens from patients with signs and symptoms of infection who are suspected of COVID-19. Results are for the identification of SARS-CoV-2 RNA. The SARS-CoV-2 RNA is generally detectable during the acute phase of infection. The Aptima SARS-CoV-2 Assay on the [employer] and Gety[employer] Fusion system is intended for use by laboratory personnel specifically instructed and trained in the operation of the [place] and [place] Fusion system. The Aptima SARS-CoV-2 assay is [...] information. Performed By: #### 3 1792 #### [facility] [address] APTTon 06-30-2020 aPTT Coag (Bld) [Time] 22.4 s Low 25.0-35.0 [facility] Comment on above: Result Comment: ALL RESULTS [...] PURPOSE. Performed By: #### 8 5499 #### [facility] [address] BASIC METABOLIC PANELon - Calcium [Mass/Vol] 9.5 mg/dL Normal 8.6-10.3 [facility] Comment on above: Performed By: #### 8 5499 #### [facility] [address] [place] [address], [place] Chloride [Moles/Vol] 95 mmol/L Low 98-107 [facility] Comment on above: Performed By: #### 8 5499 #### [facility] [address] [place] [address], [place] CO2 [Moles/Vol] 21 mmol/L Normal 21-31 [facility] Comment on above: Performed By: #### 8 5499 #### [facility] [address] [place] [address], [place] Creatinine [Mass/Vol] 1.00 mg/dL Normal 0.60-1.20 [facility] Comment on above: Performed By: #### 8 5499 #### [facility] [address] [place] [address], [place] GFR/1.73 sq M predicted among blacks MDRD (S/P/Bld) [Vol rate/Area] mL/min/{1.73_m2} Normal >60 [facility] Comment on above: Performed By: #### 8 5499 #### [facility] [address] [place] [address], [place] GFR/1.73 sq M predicted among non-blacks MDRD (S/P/Bld) [Vol rate/Area] 56 ml/min/1.73sq m Abnormal >60 [facility] Comment on above: Performed By: #### 8 [id number] #### [facility] [address] [place] [address], [place] Glucose [Mass/Vol] 395 mg/dL High 70-100 [facility] Comment on above: Performed By: #### 8 5499 #### [facility] [address] [place] [address], [place] Potassium [Moles/Vol] 4.4 mmol/L Normal 3.5-5.1 [facility] Comment on above: Performed By: #### 8 5499 #### [facility] [address] [place] [address], [facility] Sodium [Moles/Vol] 134 mmol/L Low 136-145 [facility] Comment on above: Performed By: #### 8 5499 #### [facility] [address] [facility] [place] [address], [facility] Urea nitrogen [Mass/Vol] 24 mg/dL Normal 7-25 [facility] Comment on above: Performed By: #### 8 5499 #### [facility] [address] [place] [address], [facility] BNP (B-TYPE NATRIURETIC PEPT PADMAJA)on 06-30-2020 Natriuretic peptide B (Bld) [Mass/Vol] 27 pg/mL Normal 0-100 [facility] Comment on above: Order Comment: No: D o not add to previous draw Result Comment: Give n the appropriate clinical setting a BNP result of >100 pg/mL indicates congestive heart failure. Performed By: #### 0 0071, 38348 #### [facility] [address] [place] [address], [facility] CBC W/DIFFon 06-30-2020 ABS BASOPHILS 0.1 10*3/uL Normal 0.0-0.2 [facility] Comment on above: Performed By: #### 8 5499 #### [facility] [address] [place] [address], [facility] ABS IMM GRANS 0.1 10*3/uL Normal 0.0-0.2 [facility] Comment on above: Performed By: #### 8 5499 #### [facility] [address] [place] [address], [facility] ABS NEUTROPHILS 10.3 10*3/uL High 1.6-7.6 [facility] Comment on above: Performed By: #### 8 5499 #### [facility] [address] [place] [address], [facility] Basophils/100 WBC (Bld) 0.7 % Normal 0.0-1.0 [facility] Comment on above: Performed By: #### 8 5499 #### [facility] [address] [place] [address], [facility] Eosinophils (Bld) [#/Vol] 0.2 10*3/uL Normal 0.0-0.5 [facility] Comment on above: Performed By: #### 8 5499 #### [facility] [address] [place] [address], [facility] Eosinophils/100 WBC (Bld) 1.4 % Normal 0.0-6.0 [facility] Comment on above: Performed By: #### 8 5499 #### [facility] [address] [facility] [address] Erythrocyte distribution width (RBC) [Ratio] 14.7 % Normal 11.5-15.0 [facility] Comment on above: Performed By: #### 8 5499 #### [facility] [address] [place] [address], [facility] Hematocrit (Bld) [Volume fraction] 47.7 % High 36.0-45.0 [facility] Comment on above: Performed By: #### 8 5499 #### [facility] [address] [place] [address], [facility] Hemoglobin (Bld) [Mass/Vol] 15.3 g/dL High 12.0-15.0 [facility] Comment on above: Performed By: #### 8 5499 #### [facility] [address] [address], [facility] IMMATURE GRANS 0.6 % Normal 0.0-1.0 [facility] Comment on above: Performed By: #### 8 5499 #### [facility] [address] [place] [address], [facility] Lymphocytes (Bld) [#/Vol] 1.4 10*3/uL Normal 1.2-4.0 [facility] Comment on above: Performed By: #### 8 5499 #### [facility] [address] [place] [address], [facility] Lymphocytes/100 WBC (Bld) 11.0 % Low 20.0-45.0 [facility] Comment on above: Performed By: #### 8 5499 #### [facility] [address] [facility] [place] [address], [facility] MCH (RBC) [Entitic mass] 28.7 pg Normal 27.0-33.0 [facility] Comment on above: Performed By: #### 8 5499 #### [facility] [address] [facility] [address] MCHC (RBC) [Mass/Vol] 32.1 g/dL Normal 32.0-35.0 [facility] Comment on above: Performed By: #### 8 5499 #### [facility] [address] [facility] [place] [address], [facility] MCV (RBC) [Entitic vol] 89.3 fL Normal 82.0-98.0 [facility] Comment on above: Performed By: #### 8 5499 #### [facility] [address] [facility] [place] [address], [facility] Monocytes (Bld) [#/Vol] 1.0 10*3/uL Normal 0.1-1.0 [facility] Comment on above: Performed By: #### 8 5499 #### [facility] [address] [place] [address], [facility] MONOS 7.4 % Normal 5.0-12.0 [facility] Comment on above: Performed By: #### 8 5499 #### [facility] [address] [place] [address], [facility] Neutrophils/100 WBC (Bld) 78.9 % High 40.0-72.0 [facility] Comment on above: Performed By: #### 8 5499 #### [facility] [address] Nucleated RBC/100 WBC (Bld) [Ratio] 0 % Normal 0-0 [facility] Comment on above: Performed By: #### 8 5499 #### [facility] [address] PLAT CNT 315 10*3/uL Normal 150-400 [facility] Comment on above: Performed By: #### 8 5499 #### [address] RBC (Bld) [#/Vol] 5.34 10*6/uL High 3.80-5.00 [facility] Comment on above: Performed By: #### 8 5499 #### [facility] [address] WBC (Bld) [#/Vol] 13.03 10*3/uL High 4.00-10.60 [facility] Comment on above: Performed By: #### 8 5499 #### [address] BRAIN WO CONTRAST 06-30 CT BRAIN WO CONTRAST [facility] Department of Radiology [address] [place] [id number] Patient Name: MONICA ACOSTA : 1960 Sex: F Age: Race: White Pt. Location: [facility] Patient Status: E Ordered Date: [...] achievable Electronically signed: Enio Miles. Transcribed by: [email or web address], User Resident: Electronically Signed by: ENOI MILES @ 06/30/2020 07:52 AM Normal [facility] Comment on above: Order Comment: Bleed CT CERVICAL SPINE WITHOUT CO NTRASTon 06-30-2020 CT CERVICAL SPINE WITHOUT CONTRAST [facility] Department of Radiology [address] [place] [address] Patient Name: MONICA ACOSTA : 1960 Sex: F Age: Race: White Pt. Location: [facility] Patient Status: E Ordered Date: [...] malalignment. Electronically signed: Enio Miles. Transcribed by: [id number], User Resident: Electronically Signed by: ENIO MILES @ 06/30/2020 07:54 AM Normal [facility] Comment on above: Order Comment: No: D o not add to previous draw CT LUMBAR SPINE WO CONTRASTo n 06-30-2020 CT LUMBAR SPINE WO CONTRAST [facility] Department of Radiology [address] [place] [id number] Patient Name: MONICA ACOSTA : 1960 Sex: F Age: Race: White Pt. Location: [facility] Patient Status: E Ordered Date: [...] injury. Electronically signed: Enio Miles. Transcribed by: [email or web address], User Resident: Electronically Signed by: ENIO MILES @ 06/30/2020 07:59 AM Normal [facility] Comment on above: Order Comment: No: D o not add to previous draw CTA CHESTon 06-30-2020 CTA CHEST [facility] Department of Radiology [address] [place] [id number] Patient Name: MONICA ACOSTA : 1960 Sex: F Age: Race: White Pt. Location: [id number] Patient Status: I Ordered Date: 06/30/2020 3:25:00 [...] bibasilar lower lobe atelectasis. Electronically signed: Richard Clarek. Transcribed by: [email or web address], User Resident: Electronically Signed by: RICHARD CLARKE @ 06/30/2020 08:13 PM Normal [facility] Comment on above: Order Comment: No: D o not add to previous draw D DIMER TESTon 06-30-2020 D-DIMER TEST 1.78 mcg/mL FEU High 0.27-0.49 [facility] Comment on above: Order Comment: No: D o not add to previous draw Result Comment: D-Di pema values of less than 0.50 ug/ml (FEU) are considered to be a negative predictor of thrombosis. However, the D-Dimer result should be used in conjunction with pretest probability and should not be used alone to diagnose a thrombotic event. Performed By: #### 0 0071, 36451 #### [facility] [address] HEMOGLOBIN A1Con 06-30-2020 HbA1c (Bld) [Mass fraction] 200 mmol/L Normal [facility] Comment on above: Order Comment: No: D o not add to previous draw Performed By: #### 0 0071, 24851 #### [facility] [address] [place] [address], [facility] HbA1c (Bld) [Mass fraction] 8.6 % High 4.0-6.0 [facility] Comment on above: Order Comment: No: D o not add to previous draw Performed By: #### 0 0071, 72599 #### [facility] [address] [place] [address], [facility] LACTATE BLOODon 06-30-2020 Lactate [Moles/Vol] 1.5 mmol/L Normal 0.5-2.2 [facility] Comment on above: Order Comment: No: D o not add to previous draw Performed By: #### 0 [id number], [id number] #### [facility] [address] [place] [address], [facility] MAGNESIUM BLOODon 06-30-2020 Magnesium [Mass/Vol] 1.9 mg/dL Normal 1.9-2.7 [facility] Comment on above: Order Comment: No: D o not add to previous draw Performed By: #### 0 [id number], [id number] #### [facility] [address] [place] [address], [facility] MRI LUMBAR SPINE W WO CONTRA STon 06-30-2020 MRI LUMBAR SPINE W WO CONTRAST [facility] Department of Radiology [address] [place] [address] Patient Name: MONICA ACOSTA : 1960 Sex: F Age: Race: White Pt. Location: [facility] Patient Status: I Ordered Date: [...] changes. Electronically signed: Dom Carbajal. Transcribed by: [email or web address], User Resident: Electronically Signed by: DOM CARBAJAL @ 06/30/2020 11:09 AM Normal [facility] Comment on above: Order Comment: No: D o not add to previous draw POC GLUCOSE EDon 06-30-2020 Glucose [Mass/Vol] 388 mg/dL High 70-100 [facility] Comment on above: Performed By: #### [id number] #### [facility] [address] [facility] [place] [address], [facility] POC GLUCOSE LABon 06-30-2020 Glucose [Mass/Vol] 430 mg/dL High 70-100 [facility] Comment on above: Performed By: #### [id number] ####[facility] [place] [address], [place] Glucose [Mass/Vol] 308 mg/dL High 70-100 [facility] Comment on above: Performed By: #### 3 [id number] #### [facility] [address] [facility] [place] [address], [place] Glucose [Mass/Vol] 348 mg/dL High 70-100 [facility] Comment on above: Performed By: #### [id number] #### [facility] [address] [place] [address], [place] PROCALCITONINon 06-30-2020 PROCALCITONIN 0.11 ng/mL High 0.00-0.10 [facility] Comment on above: Order Comment: No: [...] initial PCT<0.5ng/mL Performed By: #### 0 0071, [id number] #### [address] PROTHROMBIN TIMEon 0 INR Coag (PPP) [Relative time] 0.89 {INR} Low 0.91-1.16 [facility] Comment on above: Result Comment: ACCC P [...] 1995;[id number]. Performed By: #### [id number] #### [facility] [address] PT Coag (PPP) [Time] 12.0 s Low 12.3-14.8 [facility] Comment on above: Result Comment: ALL RESULTS MUST BE INTERPRETED WITH RESPECT TO BLOOD DRAWING ARTIFACT OR DILUTION ERROR OF ANTICOAGULANT AT THE TIME OF SAMPLING. Performed By: #### [id number] #### [facility] [address] [facility] [address] TPO ANTIBODY [id number] 020 TPO ANTIBODY 0.8 IU/mL Normal 0.0-9.0 The [facility] Comment on above: Result Comment: Perf ormed By: [employer] [address] [place] [address] Contract Associate Manager: Emilia Arrieta MD TROPONIN-Ion 06-30-2020 Troponin I.cardiac [Mass/Vol] 0.01 ng/mL Normal 0.00-0.04 [facility] Comment on above: Order Comment: No: D o not add to previous draw Result Comment: REFE RENCE RANGES: 0.00 - 0.04 ng/ml NORMAL 0.05 - 0.50 ng/ml INDETERMINATE > 0.50 ng/ml CONSISTENT WITH AN M.I. Performed By: #### 0 0071, [id number] #### [facility] [address] [facility] [address] Performed By: #### [id number] #### [facility] [address] [facility] [address] TYPE AND SCREENon 06-30-2020 ABO INTERPRETATION A Normal [facility] Comment on above: Performed By: #### [id number] #### [address] [place] [address], [facility] RH INTERPRETATION Positive Normal [facility] Comment on above: Performed By: #### 8 [id number] #### [facility] [address] [facility] [place] [address], [facility] LUMBAR SPINE 2 OR 3 [facility] LUMBAR SPINE 2 OR 3 VWS [facility] Department of Radiology [address] [place] [id number] Patient Name: MONICA ACOSTA : 1960 [...] reports Electronically signed: Jamie Elizondo. Transcribed by: [email or web address], User Resident: BOGDAN SOTELO Electronically Signed by: JAMIE ELIZONDO @ 06/26/2020 11:06 AM I personally read this/these film(s) with this resident Normal [facility] Comment on above: Order Comment: No: D o not add to previous draw Vital Signs Date Time Vital Sign Value Performing Clinician Facility 09-19-2024 11:190500 Body height 170.2 cm Rudolph Hurt MD Work Phone: [facility] 09-19-2024 11:19-0500 Body mass index (BMI) [Ratio] 29.76 kg/m2 Rudolph Hurt MD Work Phone: [facility] 09-19-2024 11:19-0500 Body temperature 96.21 [degF] Rudolph Hurt MD Work Phone: [facility] 09-19-2024 11:19-0500 Body weight 86.18 kg Rudolph Hurt MD Work Phone: [facility] 09-19-2024 11:19-0500 Diastolic blood pressure 66 mm[Hg] Rudolph Hurt MD Work Phone: [facility] 09-19-2024 11:19-0500 Heart rate 102 /min Rudolph Hurt MD Work Phone: [facility] 09-19-2024 11:19-0500 Respiratory rate 22 /min Rudolph Hurt MD Work Phone: [facility] 09-19-2024 11:19-0500 SaO2% (BldA) [Mass fraction] 91 % Rudolph Hurt MD Work Phone: [facility] 09-19-2024 11:19-0500 Systolic blood pressure 124 mm[Hg] Rudolph Hurt MD Work Phone: [facility] 08-21-2024 13:37-0500 Body height 170.2 cm Zeyad Tate MD Work Phone: [facility] 08-21-2024 13:37-0500 Body mass index (BMI) [Ratio] 30.7 kg/m2 Zeyad Tate MD Work Phone: [facility] 08-21-2024 13:37-0500 Body weight 88.91 kg Zeyad Tate MD Work Phone: [facility] 08-21-2024 13:37-0500 Diastolic blood pressure 66 mm[Hg] Zeayd Tate MD Work Phone: [facility] 08-21-2024 13:37-0500 Heart rate 83 /min Zeyad Tate MD Work Phone: [facility] 08-21-2024 13:37-0500 Respiratory rate 18 /min Zeyad Tate MD Work Phone: [facility] 08-21-2024 13:37-0500 Systolic blood pressure 100 mm[Hg] Zeyad Tate MD Work Phone: [facility] 12-05-2023 12:52-0400 Body height 170.2 cm Demetra HUDSON Work Phone: [facility] 12-05-2023 12:52-0400 Body mass index (BMI) [Ratio] 28.16 kg/m2 Demetra Porter APRN-CORONARY CLINICAL SPECIALIST Work Phone: [facility] 12-05-2023 12:52-0400 Body temperature 97.59 [degF] Demetra Porter APRN-CORONARY CLINICAL SPECIALIST [facility] 12-05-2023 12:52-0400 Body weight 81.56 kg Demetra Porter APRN-CORONARY CLINICAL SPECIALIST Work Phone: [facility] 12-05-2023 12:52-0400 Diastolic blood pressure 58 mm[Hg] Demetra Porter APRN-CORONARY CLINICAL SPECIALIST [facility] 12-05-2023 12:52-0400 Heart rate 84 /min Demetra DUMONTCORONARY CLINICAL SPECIALIST [facility] 12-05-2023 12:52-0400 Respiratory rate 18 /min Demetra Porter APRN-CORONARY CLINICAL SPECIALIST [facility] 12-05-2023 12:52-0400 SaO2% (BldA) [Mass fraction] 98 % Demetra Porter APRN-CORONARY CLINICAL SPECIALIST Work Phone: [employer] 12-05-2023 12:52-0400 Systolic blood pressure 96 mm[Hg] Demetra DUMONTCORONARY CLINICAL SPECIALIST Work Phone: [employer] 07-27-2021 12:15-0500 Body height 170.18 cm Veronica Ginty Other [facility] Other 07-27-2021 12:15-0500 Body mass index (BMI) [Ratio] 27.88 kg/m2 Veronica Ginty Other [facility] Other 07-27-2021 12:15-0500 Body temperature 96 [degF] Veronica Ginty Other [facility] Other 07-27-2021 12:15-0500 Body weight 80.74 kg Veronica Ginty Other [facility] Other 07-27-2021 12:150500 SaO2% (BldA) [Mass fraction] 96 % Veronica Mcneill Other [facility] Other Encounters Encounter Date Encounter Type Care Provider Facility Start: 09-19-2024 End: 09-19-2024 Bamboo flowsheet Rudolph Hurt MD Work Phone: [facility] Start: 09-19-2024 End: 09-19-2024 Bamboo flowsheet Rudolph Hurt MD Work Phone: [facility] Start: 09-19-2024 End: 09-19-2024 Office outpatient new 45 minutes Rudolph Hurt MD Work Phone: [facility] Comment on above: Rheumatoid arthritis involving multiple sites with positive rheumatoid factor (CMS/HCC) (Primary Dx); Type I diabetes mellitus with polyneuropathy (CMS/HCC); Coronary artery disease involving otoe-missouria coronary artery of otoe[place] heart without angina pectoris (CMS/HCC); PAD (peripheral artery disease) (CMS/HCC); POTS (postural orthostatic tachycardia syndrome); Type 1 diabetes mellitus with other circulatory complications (CMS/HCC); Type 1 diabetes mellitus with hyperglycemia (HCC) (CMS/HCC); Encounter for long-term (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 medications; Dyslipidemia (CMS/HCC); residential (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 (CMS/HCC) Start: 09-19-2024 End: 09-19-2024 ambulatory RUDOLPH HURT Not Available Start: 08-21-2024 End: 08-21-2024 Bamboo flowsheet Zeyad Tate MD Work Phone: [facility] Start: 08-21-2024 End: 08-21-2024 Bamboo flowsheet Zeyad Tate MD Work Phone: [facility] Start: 08-21-2024 End: 08-21-2024 Office outpatient new 60 minutes Zeyad Tate MD Work Phone: [facility] Comment on above: Type 1 diabetes ciara itus with hyperglycemia (HCC) (CMS/HCC) (Primary Dx); Essential (primary) hypertension (CMS/HCC); Vitamin D deficiency, unspecified; Dietary counseling and surveillance; Mixed hyperlipidemia (CMS/HCC); Presence of insulin pump (external) (internal); 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); Encounter for fitting or adjustment of insulin pump Start: 08-21-2024 End: 08-21-2024 ambulatory ZEYAD TATE Not Available Start: 08-13-2024 End: 08-13-2024 ambulatory [facility] Start: 07-09-2024 End: 07-09-2024 ambulatory [facility] Start: 06-11-2024 End: 06-11-2024 ambulatory [facility] Start: 05-14-2024 End: 05-14-2024 ambulatory [facility] Start: 04-28-2024 Evaluation and management of inpatient ANTONIO SEAY [facility] Start: 04-27-2024 Evaluation and management of inpatient AUTUMN SCHWARZ [facility] Start: 04-25-2024 Evaluation and management of inpatient CORTNEY HOLDEN [facility] Start: 04-24-2024 Evaluation and management of inpatient BROOKE PEREZ [facility] Start: 04-22-2024 Evaluation and management of inpatient [facility] Start: 04-22-2024 Evaluation and management of inpatient [facility] Start: 04-22-2024 [facility] Start: 04-21-[facility]24 [facility] Start: 04-21-2024 End: 05-01-2024 Evaluation and management of inpatient JULIO CESAR GARDNER [facility] Start: 04-13-2024 End: 04-13-2024 [facility] Start: 04-13-2024 End: 04-13-2024 ambulatory [facility] Start: 03-27-2024 End: 03-27-2024 ambulatory [facility] Start: 03-27-2024 End: 03-27-2024 ambulatory [facility] Start: 03-26-2024 End: 03-26-2024 ambulatory [facility] Start: 03-26-2024 ambulatory [facility] Start: 02-09-2024 End: 02-09-2024 ambulatory [facility] Start: 12-05-2023 End: 12-05-2023 ambulatory RICH [facility] Start: 12-05-2023 End: 12-05-2023 Office outpatient visit 25 minutes Demetra Porter CLINICAL INSTRUCTOR-CORONARY CLINICAL SPECIALIST Work Phone: [facility] Comment on above: Rheumatoid arthritis involving multiple sites, unspecified whether rheumatoid factor present ([facility]) (Primary Dx); Status post partial amputation of left foot ([facility]); Diabetic polyneuropathy associated with type 2 diabetes mellitus ([facility]); Severe depression ([facility]); PAD (peripheral artery disease) ([facility]); Compression fracture of L1 vertebra with routine healing, subsequent encounter; Mixed hyperlipidemia Start: 12-05-2023 End: 12-05-2023 ambulatory RICH [facility] Start: 11-29-2023 Orders Only Demetra Porter CLINICAL INSTRUCTOR-CORONARY CLINICAL SPECIALIST Work Phone: [facility] Start: 11-15-2023 Orders Only Demetra Porter CLINICAL INSTRUCTOR-CORONARY CLINICAL SPECIALIST Work Phone: [facility] Start: 11-14-2023 Refill Zen G Furlo ng DO Work Phone: [facility] Comment on above: Compression fracture of L1 vertebra with routine healing, subsequent encounter Start: 10-31-2023 Refill Zen G Furlo ng DO Work Phone: [facility] Comment on above: Compression fracture of L1 vertebra with routine healing, subsequent encounter Start: 10-16-2023 Refill Zen Borden ng DO Work Phone: [facility] Comment on above: Compression fracture of L1 vertebra with routine healing, subsequent encounter Start: 10-04-2023 Refill Zenюлия Borden ng DO Work Phone: [facility] Comment on above: Compression fracture of L1 vertebra with routine healing, subsequent encounter Start: 09-12-2023 Refill Zen Cornejolo ng DO Work Phone: [facility] Comment on above: Compression fracture of L1 vertebra with routine healing, subsequent encounter Start: 08-30-2023 Refill Zenюлия Cornejojazzy ng DO Work Phone: [facility] Comment on above: Compression fracture of L1 vertebra with routine healing, subsequent encounter Start: 10-17-2022 End: 10-17-[address] ZEN FLORES Facility:[facility] Start: 08-17-2022 ambulatory FARIBA CARRERA Facilit y:[facility] Start: 08-04-2022 End: 08-05-[address] ZEN LFORES Facility:[facility] Start: 06-15-2022 End: 06-16-2022 ambulatory FARIBA CARRERA Facility:[facility] Start: 05-31-2022 Encounter for preprocedural cardiovascular examination RADHA BRANNON Start: 05-31-2022 Encounter for preprocedural laboratory examination RADHA BRANNON Start: 05-31-2022 End: 06-03-[address] ZEN [...] Facility:[facility] Start: 03-25-2022 End: 03-26-2022 ambulatory RADHA FELIXANDER Facility:[facility] Start: 03-18-2022 End: 03-19-2022 ambulatory RADHA BRANNON Facility:[facility] Start: 03-14-2022 Encounter for preprocedural laboratory examination RADHA BRANNON Start: 03-13-2022 End: 03-15-2022 Evaluation and management of inpatient DR RUDOLPH HURT Facility:[facility] Start: 03-11-2022 End: 03-12-2022 ambulatory [...] 07-27-2021 End: 07-27-2021 ambulatory Veronica Mcneill Other [facility] Other Start: 07-27-2021 Office outpatient vi sit 15 minutes Veronica Ginty [facility] Start: 07-17-2020 End: 08-01-2020 Patient encounter procedure REFERRED SELF Facility:[facility] Start: 06-30-2020 End: 07-14-2020 Evaluation and management of inpatient REFERRED SELF Facility:[facility] Procedures Date Procedure Procedure Detail Performing Clinician Start: 08-21-2024 Gluc bld gluc mntr d ev cleared fda spec home use Zeyad Tate MD Work Phone: Start: 07-09-2024 Follow-up visit OCTAVIANO SHIPMAN Start: 06-11-2024 Follow-up visit OCTAVIANO SHIPMAN Start: 05-14-2024 Follow-up visit OCTAVIANO SHIPMAN Start: 02-09-2024 Follow-up visit Follow-up ZEN FLORES Start: 12-05-2023 Adult depression screening assessment Demetra Porter CLINICAL INSTRUCTOR-CORONARY CLINICAL SPECIALIST Work Phone: Start: 07-12-2023 Adult depression screening assessment Zen Flores Work Phone: Start: 06-30-2023 Diabetic retinal eye [...] on above: Performed By: #### B [id number] ####[facility] [id number] [place], [place] [address]Qx. Abiel Clement Start: 03-11-2022 Detachment at Left F oot, Partial 4th Ray, Open Approach RADHA [facility] Start: 03-11-2022 Division of Left Geovanny t Subcutaneous Tissue and Fascia, Percutaneous Approach RADHA [facility] Start: 03-11-2022 Division of Left Low er Leg Tendon, Open Approach RADHA [facility] Start: 03-11-2022 EXC LT METATRSL SSMD BNE 1ST TOE OP RADHA [facility] Start: 03-11-2022 Detachment at Left F oot, Partial 4th Ray, Open Approach RADHA [facility] Start: 03-11-2022 Division of Left Low er Leg Tendon, Open Approach RADHA [facility] Start: 03-11-2022 EXC LT METATRSL SSMD BNE 1ST TOE OP RADHA [facility] Start: 03-11-2022 Excision of Left Geovanny t Subcutaneous Tissue and Fascia, Open Approach RADHA [facility] Start: 07-01-2020 SUPPLEMENT LUMBAR VERTEBRA WITH SYNTH SUB, PERC APPROACH CHILANGO MARTINEZ Start: 06-30-2020 Antibody screen REFERRE D SELF Comment on above: Performed By: #### [id number] #### [address] Plan of Treatment Date Care Activity Detail Author Start: 09-17-2029 DTaP,Tdap and Td Vaccines (2 - Td or Tdap) DTaP,Tdap and Td Vaccines (2 - Td or Tdap) [facility] Start: 09-19-2025 Screening for malign ant neoplasm of breast Mammogram [facility] Comment on above: Postponed from 12/20 (Patient Refused) Start: 09-19-2025 Screening for malign ant neoplasm of colon Colorectal Cancer Screening [facility] Comment on above: Postponed from 12/20 (Patient Refused) Start: 03-27-2025 Urine screening for protein Diabetes: Urine Protein Screening [facility] Start: 02-19-2025 Hemoglobin A1c measurement Diabetes: Hemoglobin A1C [facility] Start: 12-10-2024 End: 12-10-2024 Patient encounter procedure 12/10/2024 2:15 PM EDT Office Visit [facility] [address] [place] [address] Rudolph Hurt MD [address] [place] [address] [facility] Start: 12-04-2024 Adult BMI Screening Adult BMI Screen ing [facility] Start: 12-04-2024 Depression Screening Depression Scre ening [facility] Start: 12-04-2024 Tobacco Screening Tobacco Screening [facility] Start: 11-27-2024 End: 11-27-2024 Patient encounter procedure 11/27/2024 1:40 PM EDT Office Visit [facility] [address] [place] [address] Zeyad Tate MD [address] [place] [address] [facility] Start: 11-19-2024 Hemoglobin A1c measurement Diabetes: Hemoglobin A1C [facility] Start: 09-19-2024 End: 09-19-2025 Basic metabolic 1998 panel - Serum or Plasma Basic metabolic panel Lab Routine Encounter for long-term (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 medications Expected: 09/19/2024 (Approximate), Expires: 09/19/2025 [facility] Comment on above: Expected: 09/19/2024 (Approximate), Expires: 09/19/2025 Start: 09-19-2024 End: 09-19-2025 CBC W Auto Differential panel - Blood CBC and differential Lab Routine Encounter for long-term (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 medications Expected: 09/19/2024 (Approximate), Expires: 09/19/2025 [facility] Comment on above: Expected: 09/19/2024 (Approximate), Expires: 09/19/2025 Start: 09-19-2024 End: 09-19-2025 Erythrocyte sedimentation rate Sedimentation rate, automated Lab Routine Rheumatoid arthritis involving multiple sites with positive rheumatoid factor ([facility]) Expected: 09/19/2024 (Approximate), Expires: 09/19/2025 [facility] Comment on above: Expected: 09/19/2024 (Approximate), Expires: 09/19/2025 Start: 09-19-2024 End: 09-19-2025 Hepatic function 2000 panel - Serum or Plasma Hepatic function panel Lab Routine Encounter for long-term (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 medications Expected: 09/19/2024 (Approximate), Expires: 09/19/2025 [facility] Comment on above: Expected: 09/19/2024 (Approximate), Expires: 09/19/2025 Start: 09-19-2024 End: 09-19-2025 Lipid 1996 panel - Serum or Plasma Lipid panel Lab Routine Dyslipidemia ([facility]) Expected: 09/19/2024 (Approximate), Expires: 09/19/2025 [facility] Comment on above: Expected: 09/19/2024 (Approximate), Expires: 09/19/2025 Start: 09-19-2024 End: 09-19-2025 Rheumatoid factor [Units/volume] in Serum or Plasma Rheumatoid factor Lab Routine Rheumatoid arthritis involving multiple sites with positive rheumatoid factor ([facility]) Expected: 09/19/2024 (Approximate), Expires: 09/19/2025 [facility] Work Phone: Comment on above: Expected: 09/19/2024 (Approximate), Expires: 09/19/2025 Start: 09-19-2024 End: 09-19-2024 Patient encounter procedure 09/19/2024 11:30 AM EST Office Visit [facility] [address] [place] [id number] Rudolph Hurt MD [address] [place] [phone] Arrived [facility] Comment on above: Arrived Start: 08-21-2024 End: 08-21-2024 Patient encounter procedure 08/21/2024 1:20 PM EST [facility] Visit [facility] [address] [place] [address] Zeyad Tate MD [address] [place] [address] Arrived [facility] Comment on above: Arrived Start: 07-12-2024 Adult BMI Screening Adult BMI Screen ing [facility] Start: 07-12-2024 Depression Screening Depression Scre ening [facility] Start: 07-12-2024 Medicare Annual Well ness (AWV) Medicare Annual Wellness (AWV) [facility] Start: 07-12-2024 Tobacco Screening Tobacco Screening [facility] Start: 06-30-2024 Glaucoma screening Diabetic Op hthalmology Exam [facility] Start: 05-06-2024 Influenza vaccination [facility] Start: 11-20-2023 Screening for malign ant neoplasm of breast Mammogram [facility] Comment on above: Postponed from 11/19 (Patient Refused) Start: 11-20-2023 Screening for malign ant neoplasm of colon Colonoscopy [facility] Comment on above: Postponed from 11/19 (Patient Refused) Start: 11-10-2023 End: 11-10-2023 Patient encounter procedure 11/10/2023 1:50 PM EST [facility] [address] [place] [address] Zen Flores, [address], [place] [address] [facility] Start: 09-13-2023 Diabetic foot examination Diabetic Foot Exam [facility] Start: 11-19-2022 Screening for malign ant neoplasm of breast Mammogram [facility] Start: 11-19-2022 Screening for malign ant neoplasm of colon Colonoscopy [facility] Start: 09-30-2020 Hemoglobin A1c measurement Diabetes: Hemoglobin A1C [facility] Start: 12-20-2009 Administration of varicella zoster vaccine Zoster (Shingles) Vaccine (1 of 2) [facility] Start: 1999 Screening for malign ant neoplasm of breast Mammogram [facility] Start: 12-20-1989 Screening for malign ant neoplasm of cervix [facility] Start: 12-20-1980 Screening for malign ant neoplasm of cervix Pap Smear [facility] Start: 12-20-1977 Adult BMI Follow Up Plan Adult BMI Follow Up Plan [facility] Start: 12-20-1969 Glaucoma screening Diabetes: R etinopathy Screening [facility] Start: 1959 Screening for malign ant neoplasm of colon [facility] Immunizations Immunization Date Immunization Notes [facility] Provider [facility] 07-12-2023 influenza, injectabl e, quadrivalent, preservative free Zen Furlong DO Work Phone: [facility] 07-12-2023 influenza virus vacc ine, unspecified formulation Demetra Porter CLINICAL INSTRUCTOR-CORONARY CLINICAL SPECIALIST Work Phone: [facility] 08-05-2022 influenza, injectabl e, quadrivalent, preservative free Zen Furlong DO Work Phone: [facility] 09-01-2021 Pfizer Purple Cap SARS-CoV-2 Vaccination Zeyad Tate MD Work Phone: [facility] 05-21-2021 influenza, injectabl e, quadrivalent, preservative free Zen Furlong DO Work Phone: [facility] 11-27-2020 Pfizer Purple Cap SARS-CoV-2 Vaccination Zeyad Tate MD Work Phone: [facility] 11-06-2020 COVID-19, mRNA, LNP- S, PF, 30mcg/0.3mL Dose Zen Furlong DO Work Phone: [facility] 11-03-2020 SARS-COV-2 (COVID-19 ) Vaccine, Unspecified Zen Furlong DO Work Phone: [facility] 06-11-2020 pneumococcal conjuga te vaccine, 13 valent Zen Furlong DO Work Phone: [facility] Work Phone: 06-05-2020 influenza virus vacc ine, unspecified formulation Zen Furlong DO Work Phone: [facility] 06-05-2020 pneumococcal vaccine , unspecified formulation Zen Furlong DO Work Phone: [facility] 05-20-2020 influenza, injectabl e, quadrivalent, preservative free Zen Chantallong DO Work Phone: [facility] 05-20-2020 pneumococcal polysaccharide vaccine, 23 valent Zen Furlong DO Work Phone: [facility] 09-17-2019 tetanus toxoid, redu timmy diphtheria toxoid, and acellular pertussis vaccine, adsorbed Zen Miching DO Work Phone: [facility] 06-08-2019 influenza, injectabl e, quadrivalent, preservative free Zen Chantallong DO Work Phone: [facility] 06-04-2019 influenza, seasonal, injectable Zeyad Tate MD Work Phone: [facility] 11-28-2012 tetanus toxoid, unspecified formulation Zen Furlong DO Work Phone: [facility] Payers Date Payer Category Payer Medicaid [id number] 2022 Medicaid [id number] 2021 Medicare AETNA MEDICARE A ETNA MEDICARE PLAN (HMO) [id number] 2021-Present [phone] [address] [place] [address] [id number] 1959 Unknown [id number] 2.16.840.1.062972.3.579.2.6 47 1959 Unknown [id number] 2.16.840.1.007682.3.579.2.6 47 1959 Unknown [id number] 2.16.840.1.828058.3.579.2.5 93 1959 Unknown [id number] 2.16.840.1.656005.3.579.2.5 93 1959 Unknown [id number] 2.16.840.1.763113.3.579.2.5 93 1959 Unknown [id number] 2.16.840.1.371969.3.579.2.5 93 1959 Unknown [id number] 2.16.840.1.177254.3.579.2.5 93 1959 Unknown [id number] 2.16.840.1.265574.3.579.2.5 93 1959 Unknown [id number] 2.16.840.1.099920.3.579.2.5 93 1959 Unknown [id number] 2.16.840.1.854604.3.579.2.5 93 1959 Unknown [id number] 2.16.840.1.416023.3.579.2.5 93 1959 Unknown [id number] 2.16.840.1.340666.3.579.2.5 93 1959 Unknown [id number] 2.16.840.1.145735.3.579.2.5 93 1959 Unknown [id number] 2.16.840.1.851009.3.579.2.5 93 1959 Unknown [id number] 2.16.840.1.856658.3.579.2.5 93 1959 Unknown [id number] 2.16.840.1.845351.3.579.2.5 93 1959 Unknown [id number] 2.16.840.1.640222.3.579.2.5 93 1959 Unknown [id number] 2.16.840.1.341462.3.579.2.5 93 1959 Unknown [id number] 2.16.840.1.405845.3.579.2.5 93 1959 Unknown [id number] 2.16.840.1.035968.3.579.2.5 93 1959 Unknown [id number] 2.16.840.1.739262.3.579.2.5 93 1959 Unknown [id number] 2.16.840.1.133849.3.579.2.5 93 1959 Unknown [id number] 2.16.840.1.859948.3.579.2.5 93 1959 Unknown [id number] 2.16.840.1.674709.3.579.2.5 93 1959 Unknown [id number] 2.16.840.1.679293.3.579.2.5 93 1959 Unknown [id number] 2.16.840.1.367599.3.579.2.5 93 1959 Unknown [id number] 2.16.840.1.641669.3.579.2.5 93 1959 Unknown [id number] 2.16.840.1.009038.3.579.2.5 93 1959 Unknown [id number] 2.16.840.1.677212.3.579.2.5 93 1959 Unknown [id number] 2.16.840.1.830352.3.579.2.5 93 1959 Unknown [id number] 2.16.840.1.899546.3.579.2.1 286 1959 Unknown [id number] 2.16.840.1.619347.3.579.2.1 286 1959 Unknown [id number] 2.16.840.1.259869.3.579.2.1 286 1959 Unknown [id number] 2.16.840.1.954142.3.579.2.1 286 1959 Unknown [id number] 2.16.840.1.534235.3.579.2.1 286 1959 Unknown [id number] 2.16.840.1.898671.3.579.2.1 286 1959 Unknown [id number] 2.16.840.1.043825.3.579.2.1 286 1959 Unknown [id number] 2.16.840.1.278273.3.579.2.1 286 1959 Unknown [id number] 2.16.840.1.472376.3.579.2.1 286 1959 Unknown [id number] 2.16840.1.380534.3.579.2.1 259 1959 Unknown [id number] 2.16840.1.843999.3.579.2.1 259 1959 Medicare [id number] 1960 Self-pay Private Health Insurance NHB [id number] Unknown [id number] Social History Date Type Detail Facility Start: 11-19-2022 End: 04-01-2023 Sex Assigned At [place] Other Start: 07-27-2022 End: 07-01-2024 Tobacco smoking status GAIS Ex-smoker [facility] Start: 09-05-1975 End: 06-06-1997 History of tobacco use Current smoker [facility] Start: 09-05-1975 End: 06-06-1997 History of tobacco use Cigarette Smoker [facility] Start: 07-27-2022 End: 11-19-2022 Cigarettes smoked current (pack per day) - Reported 2.5 [facility] Start: 07-27-2022 End: 07-01-2024 Tobacco use and exposure Smokeless tobacco non-user [facility] Start: 07-12-2023 End: 09-19-2024 Alcohol intake Ex-drinker (finding) [facility] Do you belong to any clubs or organizations such as [employer] groups, [employer], [employer] or athle[employer]ura! groups, or school groups? Yes [facility] Are you now , , , , never or living with a partner? [facility] How often to you hav e a drink containing alcohol? Never [facility] Average Number of Drinks Not on file [facility] How hard is it for y ou to pay for the very basics like food, housing, medical care, and heating Not very hard [facility] Do you feel stress - tense, restless, nervous, or anxious, or unable to sleep at night because your mind is troubled all the time - these days [OSQ] To some extent [facility] Start: 1960 Sex Assigned At Female [facility] Start: 09-15-2022 Gender identity Identifies as female gender (finding) [facility] Start: 09-15-2022 Sexual orientation Heterosexual (finding) [facility] How hard is it for y ou to pay for the very basics like food, housing, medical care, and heating Somewhat hard [facility] Start: 1960 Sex assigned at Not on file [facility] Do you belong to any clubs or organizations such as [employer] groups, [employer], [employer] or [employer]ura! groups, or school groups? No [facility] (I/We) worried wheth er (my/our) food would run out before (I/we) got money to buy more. Sometimes true [facility] The food that (I/we) bought just didn't last, and (I/we) didn't have money to get more. Never true [facility] Medical Equipment Procedure Code Equipment Code Equipment Origin al Text Equipment Identifier Dates End: 09-19-2024 Clinical Notes 07-27-2021 to 09-19-2024 Rudolph Hurt MD - 09/19/2024 12:14 PM Melina Hurt MD - 09/19/2024 12:14 PM Melina Hurt MD - 09/19/2024 12:14 PM Melina Hurt MD - 09/19/2024 12:08 PM EST Note Date & Type Note Facility 09-19-2024 History of Presen t illness Narrative Associated Problem(s): Type I diabetes mellitus with polyneuropathy (CMS/HCC) Symptoms stable and continue neurontin. Associated Problem(s): Type 1 diabetes mellitus with other circulatory complications (CMS/HCC) Follow with vascular. Associated Problem(s): Type 1 diabetes mellitus with hyperglycemia (HCC) (CMS/HCC) BS stable and follow with endo. Associated Problem(s): Rheumatoid arthritis involving multiple sites with positive rheumatoid factor (CMS/HCC) Continued pain and deformity. Check labs and refer to rheumatology. Resume methotrexate and folic acid. Resume norco. Discussed risks and benefits of opiate therapy. Warned medication is narcotic and risk of addiction. OARRS reviewed. Associated Problem(s): POTS (postural orthostatic tachycardia syndrome) Occasional symptoms and increase fluids. Continue atenolol. Associated Problem(s): PAD (peripheral artery disease) (CMS/HCC) Not lightheaded and monitor. Return to vascular. Associated Problem(s): Coronary artery disease involving otoe-missouria coronary artery of o[place]ou[place] heart without angina pectoris (CMS/HCC) No pain and continue medication. Recommend return to cardiology. Images from the original note were not included. Subjective Patient ID: Monica Acosta is a 63 y.o. female who presents for Follow-up (New patient ). New patient to establish care and changing PCPs. History of rheumatoid arthritis diagnosed several years ago. Previously on medication and currently only on celebrex. Needs referral to rheumatology. No labs for months. Follows with endo for DM and on insulin pump. Last A1C 7.5. History of neuropathy and on neurontin. Continues to have pain and burning in feet. History of PAD and seen by vascular. Monitoring carotids. Prior CAD with stents but no evaluation for several years. Taking medication daily. Previously diagnosed with POTS. Still occasional low BP and lightheaded when up and moving. On atenolol and doesn't notice heart racing. Review of Systems Respiratory: Negative for cough, shortness of breath and wheezing. Cardiovascular: Negative for chest pain and palpitations. Gastrointestinal: Negative for abdominal pain, diarrhea, nausea and vomiting. Genitourinary: Negative for dysuria. Objective Physical Exam Constitutional: General: She is not in acute distress. Appearance: Normal appearance. HENT: Head: Normocephalic. Right Ear: Tympanic membrane normal. Left Ear: Tympanic membrane normal. Eyes: Extraocular Movements: Extraocular movements intact. Pupils: Pupils are equal, round, and reactive to light. Cardiovascular: Rate and Rhythm: Normal rate and regular rhythm. Heart sounds: No murmur heard. No friction rub. No gallop. Pulmonary: Effort: Pulmonary effort is normal. Breath sounds: Normal breath sounds. No wheezing, rhonchi or rales. Abdominal: General: Bowel sounds are normal. There is no distension. Palpations: Abdomen is soft. Tenderness: There is no abdominal tenderness. There is no guarding or rebound. Musculoskeletal: Cervical back: Neck supple. Right lower leg: No edema. Left lower leg: No edema. Neurological: Mental Status: She is alert. Assessment/Plan Problem List Items Addressed This Visit Type 1 diabetes mellitus with other circulatory complications (CMS/HCC) Follow with vascular. Dyslipidemia (CMS/HCC) Relevant Orders Lipid panel PAD (peripheral artery disease) (CMS/HCC) Not lightheaded and monitor. Return to vascular. Coronary artery disease involving otoe-missouria coronary artery of otoe-[place]ou[place] heart without angina pectoris (CMS/HCC) No pain and continue medication. Recommend return to cardiology. Rheumatoid arthritis involving multiple sites with positive rheumatoid factor (CMS/HCC) - Primary Continued pain and deformity. Check labs and refer to rheumatology. Resume methotrexate and folic acid. Resume norco. Discussed risks and benefits of opiate therapy. Warned medication is narcotic and risk of addiction. OARRS reviewed. Relevant Medications folic acid (Folvite) 1 MG tablet methotrexate 2.5 MG tablet HYDROcodone-acetaminophen (Muscadine) 5-325 MG tablet Other Relevant Orders Rheumatoid factor Sedimentation rate, automated Ambulatory referral to Rheumatology Type 1 diabetes mellitus with hyperglycemia (HCC) (CMS/HCC) BS stable and follow with endo. Type I diabetes mellitus with polyneuropathy (CMS/HCC) Symptoms stable and continue neurontin. POTS (postural orthostatic tachycardia syndrome) Occasional symptoms and increase fluids. Continue atenolol. Encounter for long-term (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 medications Relevant Orders Basic metabolic panel CBC and differential Hepatic function panel documented in this encounter [facility] 08-21-2024 History of Presen t illness Narrative Monica Acosta is a 63 y.o. female Zeyad Tate MD presents with chief complaint of Diabetes Mellitus and Follow-up HPI: IM: 08/2024 follow up 08/21 with a 01/2024 from type 1 diabetes. Basal rates at 12 a.m 0.95, 8 a.m., 1.3, 12 p.m 1.45, 10 pm 1.2. ICR at 12 am 5.5, 9 am 6.5, 5 PM 6. ISS 1:75. A1c in the office 7.5, TDD 43, CGM 183. IM: 04/2024 follow up 04/18/2024 from type 1 diabetes. Basal rates at 12 a.m 0.85, 8 a.m., 1.3, 12 p.m 1.45, 10 pm 1.2. ICR at 12 am 5.5, 9 am 6.5, 5 PM 6. ISS 1:75. A1c in the office 8.7, Basal 56%, bolus 44% , avg 196, TDD 39. CGM 1-70-29 avg 196. IM: 12/2023 follow up 12/20/2023 from type 1 diabetes. Basal rates at 12 a.m 0.85, 8 a.m., 1.3, 12 p.m 1.45, 10 pm 1.2. ICR at 12 am 5.5, 9 am 6.5, 5 PM 6. ISS 1:75. A1c in the office 8.4, Basal 45%, bolus 55% , avg 225, TDD 36. CGM 0-75-25 avg 176. IM: 08/2023 follow up 08/15/2023 from type 1 diabetes. Basal rates at 12 a.m 0.85, 8 a.m., 1.1, 12 p.m 1.15, 10 pm 0.8. ICR at 12 am 7, 9 am 6.5, 5 PM 7. ISS 1:70. A1c in the office 8.6, Basal 72%, bolus 28% , avg 295, TDD 43. CGM 0-72-28 avg 176. IM: 05/2023 follow up 05/23/2023 from type 1 diabetes. Basal rates at 12 a.m 0.95, 8 a.m., 1.10, 12 p.m 1, 10 pm 0.8. ICR at 12 am 7, 9 am 6.5, 5 PM 7. ISS 1:70. A1c in the office 8.5, Basal 42%, bolus 58% , avg 413, TDD 33. CGM 0-70-30, IM: 10/2022 follow up from type 1 diabetes. Basal rates at 12 a.m 1, 8 a.m., 1.2, 12 p.m 1. ICR at 12 am 7, 9 am 6.5, 5 PM 7. ISS 1:65. A1c in the office 8.0, Basal 56%, bolus 46% , avg 209, TDD 35. CGM 3-47-50. had depression IM: 04/2022 follow up from type 1 diabetes. Basal rates at 12 a.m 1, 8 a.m., 1.2, 12 p.m 1. ICR at 12 am 7, 9 am 6.5, 5 PM 7. ISS 1:65. A1c in the office 7.1. M 65 %, AUTO 35 , Basal 50%, bolus 50% , avg 217, CGM 4-24 avg 168 IM: 01/2022 follow up from type 1 diabetes. Basal rates at 12 a.m. 1; 8 a.m., 1.2, 12 p.m 1. ICR at 12 am 9, 8 a, 8.8 12 PM 8, 5 PM 8. ISS 1:50. A1c in the office 8.6. M 50%, AUTO 50, Basal 60%, bolus 40% , avg 231, CGM 251 IM:: 06/2021 follow up from type 1 diabetes. Basal rates at 12 a.m. 1.1; 8 a.m., 1.2, 12 p.m 1.15; and 11 p.m., 1.05. ICR at 12 a.m., 7; 9 a.M 8, 12 PM 6.8, 5 PM 6.8. ISS 1:60. A1c in the office 8.2. M 100%, Basal 79%, bolus 21% , avg 315. had issues with [facility] IM: 02/2021 follow up from type 1 diabetes. Basal rates at 12 a.m. 1.1; 8 a.m., 1.3, 12 p.m 1.15; and 11 p.m., 1.3. ICR at 12 a.m., 8; 9 a.m., 5; and 5 p.m., 8.5. ISS 1:45. A1c in the office 7.9. A 16%, M 84%, Basal 67%, bolus 33% , avg 244. IM: 10/2020 follow up from type 1 diabetes. Basal rates at 12 a.m. 1.1; 8 a.m., 01.3, 12 p.m 1.15; and 11 p.m., 1.3. ICR at 12 a.m., 8; 9 a.m., 6.5; and 5 p.m., 8.5. ISS 1:45. A1c in the office 7.8. had back surgery in [place] IM: 03/2020 follow up from type 1 diabetes. Basal rates at 12 a.m. 0.7; 8 a.m., 0.9; 12 p.m., 0.875; and 11 p.m., 0.95. ICR at 12 a.m., 8; 9 a.m., 6.5; and 5 p.m., 8.5. ISS 1:55. A1c in the office 7.8 IM: 12/[address] Zen Flores for type 1 diabetes. Basal rates at 12 a.m. 0.7; 8 a.m., 0.9; 12 p.m., 0.875; and 11 p.m., 0.95. ICR at 12 a.m., 8; 9 a.m., 6.5; and 5 p.m., 8.5. ISS 1:55. we saw her today with tele medicine with [employer]. HPI: 09/24 New patient sent from Dr. Zen Flores for type 1 diabetes. A1C in the office 6.9 and it was 7. She has diabetes since 54 years. She is on insulin pump since 1980. CGM interpretation was 1% low range, 73% in good range, 16% in high range, and 10% in very high range. Basal rates at 12 a.m. 0.7; 8 a.m., 0.9; 12 p.m., 0.875; and 11 p.m., 0.95. ICR at 12 a.m., 8; 9 a.m., 6.5; and 5 p.m., 8.5. ISS 1:55. Pump readings; auto-mode 88%, manual mode 12%, sensor read 86%, average 156, carb 167, total daily dose 50 units. SUBJECTIVE: MEDICATIONS: Current Outpatient Medications Medication Instructions Accu-Chek FastClix Lancets misc Does not apply aspirin 81 mg, Daily atenolol (TENORMIN) 50 mg, Daily atorvastatin (LIPITOR) 80 mg, Daily Blood Glucose Monitoring Suppl (Kuapay Verio Reflect) w/Device kit Does not apply Cariprazine HCl (Vraylar) 1.5 MG capsule Oral celecoxib (CELEBREX) 200 mg, 2 times daily cholecalciferol (VITAMIN D-3) 1,000 Units, Oral, Daily Continuous Glucose Associate Director Finance (FreeStyle Tru 14 Day [place]) device Does not apply Continuous Glucose Sensor (FreeStyle Tru 14 Day Sensor) misc Does not apply dilTIAZem CD (CARDIZEM CD) 180 mg, Oral, Daily DULoxetine (CYMBALTA) 60 mg, Daily DULoxetine (CYMBALTA) 30 mg, 2 times daily gabapentin (Neurontin) 100 MG capsule 1 capsule, 3 times daily glucose blood (Accu-Chek Guide) test strip 1 each, Other, As needed, Use as instructed glucose blood (Contour Next Test) test strip 1 each, Other, As needed, Use as instructed glucose blood (OneTouch Verio) test strip 1 each, Other, As needed, Use as instructed HYDROcodone-acetaminophen (Muscadine) 5-325 MG tablet No dose, route, or frequency recorded. HYDROcodone-ibuprofen (Vicoprofen) 7.5-200 MG tablet No dose, route, or frequency recorded. Insulin Aspart (NOVOLOG) 50 Units, Injection, Daily insulin aspart protamine-insulin aspart (NovoLOG Mix 70-30) (70-30) 100 UNIT/ML injection Subcutaneous, 2 times daily with meals leflunomide (ARAVA) 20 mg, Oral, Daily midodrine (PROAMATINE) 10 mg, Oral, 3 times daily nitroglycerin (NITROSTAT) 0.4 mg, Every 5 min PRN ondansetron (Zofran) 4 MG tablet Oral OneTouch Delica Lancets 33G misc Does not apply pantoprazole (PROTONIX) 40 mg, Oral, Daily before breakfast, Do not crush, chew, or split. ALLERGIES: Allergies Allergen Reactions Wound Dressing Adhesive BLISTERS (IF ON FOR TOO LONG) Bee Venom Other reaction(s): TROUBLE BREATHING Codeine Other Other Reaction(s): GETS HYPERACTIVE Hydromorphone Lisinopril Other Other Reaction(s): LOW BLOOD PRESSURE Morphine Other Other Reaction(s): PASS OUT Past Medical History: Diagnosis Date Body mass index (BMI) 31.0-31.9, adult CAD (coronary artery disease) ([facility]/HCC) Current use of insulin ([facility]) Diabetes ([facility]) Dietary counseling and surveillance Encounter for fitting and adjustment of insulin pump Essential (primary) hypertension ([facility]) Fracture of right hand Heart problem High cholesterol ([facility]) History of open heart surgery HTN (hypertension) ([facility] Hypertension ([facility]) 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 ([facility]) Mixed hyperlipidemia ([facility]) Obesity, unspecified PAD (peripheral artery disease) ([facility]) Personal history of other medical treatment Triple Bypass POTS (postural orthostatic tachycardia syndrome) Presence of insulin pump (external) (internal) Rheumatoid arthritis ([facility]) Type 1 diabetes mellitus with other circulatory complications ([facility]) Vitamin D deficiency, unspecified Past Surgical History: Procedure Laterality Date BACK SURGERY fall CARDIAC SURGERY CATARACT EXTRACTION Bilateral SECTION, CLASSIC CHOLECYSTECTOMY CT ANGIOGRAM HEART CORONARY 06/30/2020 CT ANGIOGRAM TAVR FOOT SURGERY GALLBLADDER SURGERY HERNIA REPAIR ORTHOPEDIC SURGERY WRIST SURGERY REVIEW OF SYMPTOMS: 14 POINT OF SYSTEM REVIEWED AND NEGATIVE OBJECTIVE: Constitutional: Afebrile @ home; no weakness or night sweats SKIN: No change in skin color; no itching, rash or lesions; no hair loss; HEENT: No HAs or injury; no dizziness; No difficulty with vision; no eye pain, discharge or lesions; no hearing loss or difficulty; no nasal discharge, NECK: No pain, limitation of motion, lumps or swollen glands RESP: No cough, wheezing or difficulty breathing. No CP with breathing; CARDIO: No CP , SOB or fatigue, No edema, palpitations or dyspnea with exertion GI: No N/V/D or abd. pain; good appetite with no recent change. No heart burn, liver or gallbladder disease; no rectal bleeding or pain : No urinary pain , frequency or odor. MUSCULOSKELETAL: No muscle pain or cramps; no extremity weakness.No joint pain, stiffness, swelling or limitation of movement NEUROLOGY: No H/O seizures, stroke or fainting. No weakness, tremors. Hematology: No bleeding problems or excessive bruising ENDOCRINE: No increase in hunger, thirst or urination; admits compliance to medical management plan Feet: numbness tingling , ulcers or skin break Lab Results Component Value Date HGBA1C 7.5 08/21/2024 Lab Results Component Value Date GLU 100 08/21/2024 GLU 99 05/01/2024 GLU 103 05/01/2024 Visit Vitals BP 100/66 Pulse 83 Resp 18 Ht 5' 7 Wt 196 lb BMI 30.70 kg/m Smoking Status Former BSA 2.05 m ASSESSMENT AND PLAN: Assessment/Plan Diagnoses and all orders for this visit: Type 1 diabetes mellitus with hyperglycemia (HCC) (CMS/HCC) - POCT glucose manually resulted - POCT glycosylated hemoglobin (Hb A1C) docked device - Insulin Aspart (NovoLOG) 100 UNIT/ML solution; Inject 50 Units as directed Daily We will continue the same settings. Essential (primary) hypertension (CMS/HCC) Vitamin D deficiency, unspecified Dietary counseling and surveillance Diet and exercise reviewed with the patient Mixed hyperlipidemia (CMS/HCC) Presence of insulin pump (external) (internal) residential (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 (CMS/HCC) Encounter for fitting or adjustment of insulin pump Follow up in about 3 months (around 11/19/2024). documented in this encounter [facility] 08-13-2024 Note [facility] 07-09-2024 Note [facility] 06-11-2024 Note [facility] 05-14-2024 Note [facility] 05-01-2024 Note Chronic CHF, [facility] type[facility] 05-01-2024 Note [facility] 05-01-2024 Note [facility] 05-01-2024 Note [facility] 04-30-2024 Note [facility] 04-30-2024 Note [facility] 04-30-2024 Note [facility] 04-30-2024 Note [facility] 04-30-2024 Note [facility] 04-30-2024 Note [facility] 04-29-2024 Note [facility] 04-29-2024 Note [facility] 04-28-2024 Note [facility] 04-28-2024 Note [facility] 04-27-2024 Note [facility] 04-26-2024 Note [facility] 04-26-2024 Note [facility] 04-26-2024 Note [facility] 04-26-2024 Note 10:00-SW sent update s to [facility]-await precert. OTM will continue to follow. [facility] 04-26-2024 Note [facility] 04-25-2024 Note [facility] 04-25-2024 Note 8:30-SW sent updates to [facility]-currently awaiting precert that was requested yesterday. OTM will continue to follow. [facility] 04-25-2024 Note [facility] 04-24-2024 Note [facility] 04-24-2024 Note [facility] 04-24-2024 Note [facility] 04-24-2024 Note [facility] 04-24-2024 Note [facility] 04-24-2024 Note [facility] 04-23-2024 Note New referral sent to Ros[facility] Banda [facility] 04-23-2024 Note [facility] 04-23-2024 Note [facility] 04-23-2024 Note [facility] 04-23-2024 Note [facility] 04-23-2024 Note [facility] 04-22-2024 Note Addendum created 1430 by Kirt Nicole MD Intraprocedure Event edited, Intraprocedure Staff edited [facility] 04-22-2024 Note [facility] 04-22-2024 Note [facility] 04-22-2024 Note [facility] 04-22-2024 Note [facility] 04-22-2024 Note [facility] 04-22-2024 Note [facility] 12-05-2023 History of Presen t illness Narrative .Subjective Patient ID: Monica Acosta is a 62 y.o. female. She has been taking the hydrocodone for rheumatoid arthritis more so than her low back pain although her low back still gives her pain Her rheumatoid arthritis makes her ache in multiple joints She does not see a resource economist for this She has been taking it [...] multiple sites, unspecified whether rheumatoid factor present ([facility] [place] - HYDROcodone-acetaminophen (NORCO) 7.5-325 mg per tablet; Take 1 tablet by mouth 2 (two) times a day as needed for pain. Status post partial amputation of left foot ([facility] [place] Diabetic polyneuropathy associated with type 2 diabetes mellitus ([facility] [place] - TSH; Future Severe depression ([facility] [place] PAD (peripheral artery disease) ([facility] [place] Compression fracture of L1 vertebra with routine [...] Cordero 12/05/23 1329 documented in this encounter [facility] 11-29-2023 History of Presen t illness Narrative The OARRS/MAPPS database was reviewed today and found to be appropriate. No indication of medication diversion, or non compliance. BECCA Cordero 11/29/23 0745 documented in this encounter [facility] 11-15-2023 History of Presen t illness Narrative The OARRS/MAPPS database was reviewed today and found to be appropriate. No indication of medication diversion, or non compliance. RichBECCA Vasquez 11/15/23 0759 documented in this encounter [facility] 10-16-2023 Miscellaneous Notes She has requesting a refill of her controlled substance but she is overdue for an appointment. She needs to set 1 up as soon as possible documented in this encounter [facility] 10-16-2023 Telephone encounter Note She has requesting a refill of her controlled substance but she is overdue for an appointment. She needs to set 1 up as soon as possible [facility] 10-04-2023 Miscellaneous Notes Rx sent in. She is due for a controlled substance recheck next week documented in this encounter [facility] 10-04-2023 Telephone encounter Note Rx sent in. She is due for a controlled substance recheck next week [facility] 07-27-2021 Evaluation note Encounter Date Diagnosis Assessment [...] Patient care instructions given in writting by [facility] At Home document [place] Other Evaluation note* Diagnosis Compression fracture of L1 vertebra with routine healing, subsequent encounter [facility] Diagnosis Compression fracture of L1 vertebra with routine healing, subsequent encounter [facility] Diagnosis Compression fracture of L1 vertebra with routine healing, subsequent encounter [facility] Diagnosis Rheumatoid arthritis involving multiple sites, unspecified whether rheumatoid factor present ([facility] Primary Status post partial amputation of left foot ([facility] [place] Diabetic polyneuropathy associated with type 2 diabetes mellitus ([facility]) Severe depression ([facility] [place] Depressive disorder, not elsewhere classified PAD (peripheral artery disease) ([facility] [place] Unspecified peripheral vascular disease Compression fracture of L1 vertebra with routine healing, subsequent encounter Mixed hyperlipidemia documented [facility] Diagnosis Type 1 diabetes mellitus with hyperglycemia (HCC) ([facility] Primary Essential (primary) hypertension ([facility]) Unspecified essential hypertension Vitamin D deficiency, unspecified Dietary counseling and surveillance Mixed hyperlipidemia ([facility]) Mixed hyperlipidemia Presence of insulin pump (external) (internal) 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 ([facility]) Encounter for fitting or adjustment of insulin pump Fitting and adjustment of insulin pump documented in this encounter [facility] HealthcareEvaluation note* Diagnosis Rheumatoid arthritis involving multiple sites with positive rheumatoid factor ([facility] Primary Type I diabetes mellitus with polyneuropathy ([facility]) Coronary artery disease involving otoe-[place]ouria coronary artery of otoe-[place] heart without angina pectoris ([facility]) PAD (peripheral artery disease) ([facility]) Unspecified peripheral vascular disease POTS (postural orthostatic tachycardia syndrome) Unspecified tachycardia Type 1 diabetes mellitus with other circulatory complications ([facility]) Type 1 diabetes mellitus with hyperglycemia (HCC) ([facility]) Encounter for long-term (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 medications Encounter for long-term (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 other medications Dyslipidemia ([facility]) Other 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 hyperlipidemia 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 ([facility]) documented in this encounter [facility] HealthcareHistory general Narrative - Reported* Type Description Date Medical History diabetes mallitus Medical History chronic depression Medical History high blood pressure Medical History high cholesterol Medical History rheumatoid arthritis Surgical History open heart surgery [place] Other InstructionsNot on filedocumented in this [facility] this [facility] Summary Purpose Family History No [...] Records Found Hospital Course Note MR#: [id number] [facility] Pt. Name: Monica Acosta Admitted: 06/30/2020 [...] regimen and follow up with the primary sewing machinist. HOSPITAL COURSE: The patient is a 59-year-old [...] and content) DATE CREATED AUTHOR 10/15/2020 [facility] DATE CREATED AUTHOR AUTHOR'S ORGANIZ ATION 09/23/2021 [facility] DATE CREATED AUTHOR AUTHOR'S ORGANIZ ATION 10/19/2022 [facility] DATE CREATED AUTHOR AUTHOR'S ORGANIZ ATION 04/16/2024 [facility] DATE CREATED AUTHOR AUTHOR'S ORGANIZ ATION 04/16/2024 [facility] DATE CREATED AUTHOR AUTHOR'S ORGANIZ ATION 08/19/2024 [facility] DATE CREATED AUTHOR AUTHOR'S ORGANIZ ATION 09/22/2024 [facility] EPIC REASON FOR VISIT (unrecogniz ed section and content) Reason Onset Date Comments Med Refill 09/12/2023 Reason Onset Date Comments Med Refill 10/04/2023 Reason Onset Date Comments Med Refill 10/16/2023 Reason Onset Date Comments Med Refill 10/31/2023 Reason Onset Date Comments Med Refill 11/14/2023 Reason Comments controlled sub Reason Comments Diabetes Mellitus Follow-up Reason Comments Follow-up New patient Reason Onset Date Comments Med Refill 08/30/2023 Care Teams (unrecognized sec tion and content) Staff Toxicologist Relationship Specialty Start Date End Date Zen Flores DO [address] [place] [address] PCP - General Family Medicine 09/18/19 Staff Toxicologist Relationship Specialty Start Date End Date Zen Flores DO [address] [place] [address] PCP - General Family Medicine 09/18/19 Staff Toxicologist Relationship Specialty Start Date End Date Zen Flores DO [address] [place] [address] PCP - General Family Medicine 09/18/19 Staff Toxicologist Relationship Specialty Start Date End Date ChantaljazzyZen burns [address], [place] [address] PCP - General Family Medicine 09/18/19 Staff Toxicologist Relationship Specialty Start Date End Date Chantalthao Zen Kemar [address], [place] [address] PCP - General Family Medicine 09/18/19 Staff Toxicologist Relationship Specialty Start Date End Date Zen Flores MD [address], [place] [address] PCP - General Family Medicine 08/14/24 Staff Toxicologist Relationship Specialty Start Date End Date Zen Flores MD [address] [place] [address] PCP - General Family Medicine 08/14/24 Staff Toxicologist Relationship Specialty Start Date End Date Rudolph Hurt MD [address] [place] [address] PCP - General Family Medicine 09/19/24 Staff Toxicologist Relationship Specialty Start Date End Date Zen Flores MD [address] [place] [address] PCP - General Family Medicine 08/14/24 FOR RECORDS PERTAINING TO PATIENTS WHO ARE [...] BE BASED ON THE PRIMARY CLINICAL RECORDS. [employer] provides no warranty or guarantee of the accuracy or completeness of information in this document.
== END 2024-10-02 15:32 | disposition home or self-care (01) ==
LOC: WC 15:31
PROVIDERS: PCP Family Medicine; Visit Provider Physician Assistant
DX: L97.918 Non-pressure chronic ulcer of unspecified part of right lower leg with other specified severity (principal); L89.610 Pressure ulcer of right heel, unstageable
CPT/HCPCS: G0463

== ENCOUNTER 2024-10-30 14:15 | Outpatient (OUT) | payer MEDICARE, MEDICAID, SELFPAY | END 2024-10-30 14:16 | disposition home or self-care (01) | LOC: WC 14:15 | PROVIDERS: PCP Family Medicine; Visit Provider Physician Assistant | DX: L97.918 Non-pressure chronic ulcer of unspecified part of right lower leg with other specified severity (principal); L89.610 Pressure ulcer of right heel, unstageable | CPT/HCPCS: G0463 ==

== ENCOUNTER 2024-11-21 14:20 | Outpatient (OUT) | payer MEDICARE, MEDICAID, SELFPAY | END 2024-11-21 14:21 | disposition home or self-care (01) | LOC: WC 14:21 | PROVIDERS: PCP Family Medicine; Visit Provider Physician Assistant | DX: L97.918 Non-pressure chronic ulcer of unspecified part of right lower leg with other specified severity (principal); L89.610 Pressure ulcer of right heel, unstageable; L97.919 Non-pressure chronic ulcer of unspecified part of right lower leg with unspecified severity; Z98.890 Other specified postprocedural states; R60.0 Localized edema | CPT/HCPCS: 73590; G0463 ==

== ENCOUNTER 2024-11-21 14:46 | Outpatient (OUT) | payer MEDICARE, MEDICAID, SELFPAY ==
--- NOTE | 2024-11-21 14:51 | XR_ITS ---
[facility] [place] [id number] Patient Name: MONICA ACOSTA MRN: [id number] date: 1960 Sex: F Assigned Patient Location: [facility] Current Patient Location: [facility] Accession/Order Number: [id number] Exam Date: 11/21/2024 18:36 Report Date: 11/21/2024 18:38 At the request of: FARIBA CARRERA Procedure: XR tibia fibula RT 2V RIGHT TIBIA AND FIBULA - - 2 views CLINICAL HISTORY: Pressure sore distal aspect of right tib-fib for 2 months. COMPARISON: None FINDINGS: Vascular clips are noted. Soft tissue swelling is present. No soft tissue gas or radiopaque foreign body is seen. Hardware fixation is seen involving a remote tibial fracture without evidence of hardware complication. Remote posttraumatic deformity is seen involving the distal fibula. No acute fracture or plain film evidence of osteomyelitis. Bones are grossly generalized. Ankle mortise appears intact with degenerative change. Visualized knee joint demonstrate degenerative change. XR/XR tibia fibula RT 2V IMPRESSION: SOFT TISSUE SWELLING. POSTTRAUMATIC CHANGES INVOLVING THE DISTAL TIBIA AND FIBULA WITHOUT EVIDENCE OF HARDWARE COMPLICATION. NO DEFINITIVE PLAIN FILM EVIDENCE OF OSTEOMYELITIS. Impression dictated by: Daniel Salas Jr., D.O.11/21/2024 6:38 PM Dictation Location: [place] [address] Electronically authenticated by: [id number] Y Date: 11/21/2024 18:38
== END 2024-11-21 14:47 | disposition home or self-care (01) ==
LOC: RAD 14:47
PROVIDERS: PCP Family Medicine; Visit Provider Physician Assistant
DX: L97.919 Non-pressure chronic ulcer of unspecified part of right lower leg with unspecified severity (principal); Z98.890 Other specified postprocedural states; R60.0 Localized edema
CPT/HCPCS: 73590

== ENCOUNTER 2024-11-22 11:57 | Outpatient (OUT) | payer MEDICARE, MEDICAID, SELFPAY ==
--- OUTSIDE RECORDS SUMMARY | 2024-11-22 12:05 | XMS_ITS | CCD ---
Author Organization [facility] Care Team Providers Care Rope Tier Name Role Phone SELF, REFERRED Referring Unavailable YISEL, ALEXANDER Admitting Unavailable CHILANGO MARTINEZ Surgeon Unavailable DIONNE HYATT Attending Unavailable [place] Procedure Practitioner Unavailab le UNKNOWN, PHYSICIAN Primary [...] FURLONG, DR ZEN Reinoso Primary Care Unavailable MILL CREEK, DR ANN García Consulting Unavailable HIGHLANDER, RADHA [...] Unavailable LICHA, DR RUDOLPH Farnsworth Admitting Unavailable FURLONG, DR ZEN Reinoso Primary Care Unavailable JEAN-PAUL, DR CHAYITO Sidhu Consulting Unavailable ALESSANDRO, DR HENRY Consulting Unavailable SLICKEREThea, DR RUDOLPH Farnsworth Consulting Unavailable CLOVIS, RADHA Nogueira Consulting [...] GAYLESILVINA Anderson Consulting Unavailable AYYAGARIBRENDA Consulting Unavailable MCCORNARICHARD MILLER Consulting Unavailable MIKHAIL, DANNY Consulting Unavailable RADHA [...] Unavailable FAWWAD, CAMPBELL H Admitting Unavailable FAHANNAHD, CMAPBELL H Attending Unavailable SCHUYLER, DR JAMES Reinoso Consulting UnavailPADMINI Allison Consulting Unavailable NORA NARAYAN Consulting Unavailable FAWWAD, CAMPBELL H Consulting Unavailable SARAH SOLIS Consulting Unavailable ANN PEREA Consulting Unavailable MIKHAIL, DANNY Consulting Unavailable RADHA BRANNON Admitting Unavailable HIGHLCHRISTINA, RADHA Nogueira Attending Unavailable FURLONG, DR ZEN Reinoso Primary Care Unavailable DEMETRA PORTER Attending Unavailable FURLOZEN VILLALOBOS Referring Unavailable FURLONGZEN Primary Care Unavailable FURLONGZEN Attending Unavailable FURLONGZEN Referring Unavailable FURLONGZEN Primary Care Unavailable FURLONG, ZEN Reinoso Attending Unavailable FURLONG, ZEN Reinoso Referring Unavailable FURLONG, ZEN G Primary Care Unavailable FURLONG, ZEN G Attending Unavailable FURLONG, ZEN G Referring Unavailable FURLONG, ZEN G Primary Care Unavailable FURLONG, ZEN G Attending Unavailable FURLONG, ZEN G Referring Unavailable FURLONG, ZEN G Primary Care Unavailable Furlong Zen SHAVER Primary Care Provider [phone] Rudolph Hurt MD Primary Care Provider [phone] RUDOLPH HURT Attending Unavailable ZEYAD TATE Attending Unavailable ZEYAD TATE F Referring Unavailable Furlong DOZen Primary Care Provider [phone] SHENDGE, VITHAL Referring Unavailable SHENDGE, VITHAL Referring Unavailable SHENDGE, VITHAL Referring Unavailable SHENDGE, VITHAL Attending Unavailable CORTNEY HOLDEN Referring Unavailable STEENHOFF, ISIDRO Referring Unavailable HAYJULIO CESAR Referring Unavailable NUNU HI Admitting Unavailable DONNA WONG Attending Unavailable SHENDGE, VITHAL Referring Unavailable AUTUMN SCHWARZ Referring Unavailable SEAYANTONIO Referring Unavailable SHENDGE, VITHAL Referring Unavailable SHENDGE, VITHAL Attending Unavailable PEREZ, BROOKE Referring Unavailable SHENDGE, VITHAL Referring Unavailable PEREZ, BROOKE Referring Unavailable STEENHOFF, ISIDRO Referring Unavailable STEENHOFF, ISIDRO Referring Unavailable SHENDGE, VITHAL Attending Unavailable SHENDGE, VITHAL Attending Unavailable SHENDGE, VITHAL Attending Unavailable SHENDGE, VITHAL Referring Unavailable SHENDGE, VITHAL Referring Unavailable Rudolph Hurt MD Primary Care Provider [phone] DEMETRA PORTER Referring Unavailable FURLONG, ZEN G Primary Care Unavailable FURLONG, ZEN G Referring Unavailable FURLONG, ZEN G Primary Care Unavailable FURLONG, ZEN G Referring Unavailable FURLONG, ZEN G Primary Care Unavailable FURLONG, ZEN G Referring Unavailable FURLONG, ZEN G Primary Care Unavailable RIGO, COLLIN Attending Unavailable RUDOLPH HURT Referring Unavailable RUDOLPH HURT Primary Care Unavailable RIGO, COLLIN Referring Unavailable RUDOLPH HURT Primary Care Unavailable SABA, COLLIN Referring Unavailable RUDOLPH HURT Primary Care Unavailable Allergies Allergy Classification Reported Allergen(s) Allergy Type Date of Onset Reaction(s) Facility (1 source) Adhesive Tape Drug allergy (disorder) [address] [facility] Repository (7 sources) Amino Acids; 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: [LISINOPRIL] Drug Allergy [address] [facility] Repository (1 source) Bee/Wasp/Ant venom; 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: [Bee/Wasp Stings] Propensity to adverse reactions (disorder) [address] [facility] Repository (6 sources) Codeine; 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: [CODEINE] Drug Allergy [address] [facility] Repository (6 sources) Morphine; 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: [MORPHINE] Drug Allergy [address] [facility] Repository (2 sources) bee venom Drug allergy (disorder) The [facility] Repository (4 sources) cilostazol; 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: [CILOSTAZOL] Drug Allergy 0 [facility] Repository (2 sources) Desonide Drug Allergy [facility] Rep[facility] (4 sources) HYDROmorphone; 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: [HYDROMORPHONE] Drug Allergy 0 [facility] Repository (1 source) icosapent ethyl Drug Allergy [facility] Repository (20 sources) Adhesive agent; 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: [ADHESIVE] Propensity to adverse reactions to drug (disorder) 1 [facility] Repository (20 sources) Bee pollen; 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: [BEE POLLEN] Propensity to adverse reactions to drug (disorder) 0 [facility] (20 sources) icosapent ethyl; 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: [ICOSAPENT ETHYL] Drug Allergy 2 Dizziness [facility] Rep[facility] (20 sources) BEE VENOM PROTEIN (HONEY BEE); 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: [BEE VENOM PROTEIN (HONEY BEE)] Propensity to adverse reactions to drug (disorder) 1 [facility] (20 sources) Codeine Drug Allergy 0 Other [facility] (8 sources) Honey bee venom Propensity to adverse reactions 1 [facility] (20 sources) HYDROmorphone Drug Allergy 0 [facility] (8 sources) Lisinopril Allergy to substance 0 Other [facility] (20 sources) Morphine Drug Allergy 0 Other [facility] (8 sources) Wound Dressing Adhesive Drug Intolerance 1 [facility] (20 sources) cilostazol Drug Allergy 0 [facility] (20 sources) Lisinopril Drug Allergy 0 Rash [facility] Medications Current Medications Medication Drug Class(es) Dates Sig (Normalized) Sig (Original) acetaminophen 325 mg / HYDROcodone bitartrate 5 mg oral tablet (20 sources) Opioid Agonist Start: 11-12-2024 End: 11-19-2024 take 1 tablet by mouth four times daily as needed for pain HYDROcodone-aceta minophen ([place]) 5-325 MG tablet Indications: Rheumatoid arthritis involving multiple sites with positive rheumatoid factor (CMS/HCC) Take 1 tablet by mouth 4 (four) times a day as needed for severe pain for up to 7 days 28 tablet 11/12/2024 11/19/2024 Active Start: 10-19-2024 End: 10-26-2024 take 1 tablet by mouth four times daily as needed for pain HYDROcodone-acetaminophen ([place]) 5-325 MG tablet Indications: Rheumatoid arthritis involving multiple sites with positive rheumatoid factor (CMS/HCC) Take 1 tablet by mouth 4 (four) times a day as needed for severe pain for up to 7 days 28 tablet 10/19/2024 10/26/2024 Active Start: 09-19-2024 End: 09-26-2024 take 1 tablet by mouth four times daily as needed for pain HYDROcodone-acetaminophen ([place]) 5-325 MG tablet Indications: Rheumatoid arthritis involving multiple sites with positive rheumatoid factor (CMS/HCC) Take 1 tablet by mouth 4 (four) times a day as needed for severe pain for up to 7 days 28 tablet 09/19/2024 09/26/2024 Active Start: 03-29-2024 take 1 tablet by nguyen th once daily in the morning HYDROcodone-acetaminophen (NORCO) 7.5-32 5 mg per tablet Indications: Rheumatoid arthritis involving multiple sites, unspecified whether rheumatoid factor present (CMS-HCC) Take 1 tablet by mouth in the morning. Max Daily Amount: 1 tablet. 21 tablet 03/29/2024 Active Start: 10-18-2023 End: 03-27-2024 take 1 tablet by mouth twice daily as needed for pain HYDROcodone-acetaminophen (NORCO) 7.5-32 5 mg per tablet Indications: Rheumatoid arthritis involving multiple sites, unspecified whether rheumatoid factor present ([facility]) Take 1 tablet by mouth 2 (two) [...] MG tablet 09/19/2024 Discontinued HYDROcodone-Acet aminophen Active [id number] 200 actuat albuterol 0.09 mg/actuat metered dose inhaler (20 sources) beta2-Adrenergic Agonist Start: 07-27-2021 take 2 puff(s) by inhalation every four to six hours as needed Albuterol Sulfate HFA 108 (90 Base) MCG/ACT 2 puffs as needed Inhalation every 4-6 hours for 14 days Jul, Active End: 03-26-2024 take 2 puff(s) by inhalation every six hours as needed albuterol (PROVENTIL HFA;VENTOLIN HFA) 90 mcg/actuation inhaler Inhale 2 puffs every 6 (six) hours as needed. 03/26/2024 Discontinued (Patient Stopped On Own) aspirin 81 mg oral tablet (20 sources) Platelet Aggregation Inhibitor, Nonsteroidal Anti-inflammatory Drug take 81 mg by mouth once daily BABY ASPIRIN ORAL Take 81 mg by mouth daily. Active take 1 tablet by mouth in the mo rning aspirin 81 MG EC tablet Take 81 mg by mouth in the morning. Active atenolol 50 mg oral tablet (20 sources) beta-Adrenergic Rakan Start: 06-17-2023 End: 02-27-2024 take 1 tablet by mouth in the morning atenoloL (TENORMIN) 50 mg tablet Take 1 tablet (50 mg total) by mouth in the morning. 90 tablet 1 02/27/2024 Active Atenolol Active atorvastatin 80 mg oral tablet (20 sources) HMG-CoA Reductase Inhibitor Start: 05-17-2023 take [...] Suppl (OneTouch Verio Reflect) w/Device kit Active blood-glucose meter (ONETOUCH VERIO REFLECT METER) misc (11 sources) blood-glucose me ter (ONETOUCH VERIO REFLECT METER) misc use as directed Active cariprazine 1.5 mg oral capsule (6 sources) Atypical Antipsychotic End: Cariprazine HCl (Vraylar) 1.5 MG capsule Take by mouth 09/19/2024 Discontinued celecoxib 200 mg oral capsule (20 sources) Nonsteroidal Anti-inflammatory Drug Start: 023 End: 024 take 1 capsule by mouth in the morning celecoxib (CeleBREX) 200 MG capsule Indications: Rheumatoid arthritis involving multiple sites with positive rheumatoid factor (CMS/HCC) Take 1 capsule (200 mg) by mouth in the morning and 1 capsule (200 mg) before bedtime. 60 capsule 3 09/19/2024 Active cholecalciferol 0.125 mg oral tablet (20 sources) Vitamin D cholecalciferol, vitamin D3, 5,000 units tablet cholecalciferol (vitamin D3) 125 mcg (5,000 unit) tablet Active End: 09-19-2024 take 1 capsule by mouth in the morning cholecalciferol (Vitamin D-3) 25 MCG (1000 UT) capsule Take 1,000 Units by mouth in the morning. 09/19/2024 Discontinued cholecalciferol, vitamin D3, 5,000 units tablet cholecalciferol (vitamin D3) 125 mcg (5,000 unit) tablet 0 Active Continuous Glucose Clothing Consultant (FreeStyle Tru 14 Day [place]) device (6 sources) End: 09-19-2024 Continuous Glucose Clothing Consultant (FreeStyle Tru 14 Day [place]) device 09/19/2024 Discontinued Continuous Gluco se Clothing Consultant (FreeStyle Tru 14 Day [place]) device Active Continuous Glucose Sensor (FreeStyle Tru 14 Day Sensor) misc (6 sources) End: 09-19-2024 Continuous Glucose Sensor (FreeStyle Tru 14 Day Sensor) misc 09/19/2024 Discontinued Continuous Gluco se Sensor (FreeStyle Tru 14 Day Sensor) [facility] [place] cyclobenzaprine hydrochloride 10 mg oral tablet (20 sources) Muscle Relaxant Start: 02-09-2024 End: 09-19-2024 take 1 tablet by mouth three times daily as needed for muscle spasms cyclobenzaprine (FLEXERIL) 10 mg tablet Indications: Strain of neck muscle, initial encounter Take 1 tablet (10 mg total) by mouth 3 (three) times a day as needed for muscle spasms. 30 tablet 1 02/09/2024 Active Start: 06-06-2023 End: 02-09-2024 take 1 tablet by mouth every eight hours cyclobenzaprine (FLEXERIL) 10 mg tablet take 1 tablet by mouth every 8 hours if needed 90 tablet 1 06/06/2023 02/09/2024 Discontinued (Reorder) 24 hr dilTIAZem hydrochloride 180 mg extended [...] Serotonin and Norepinephrine Reuptake Inhibitor Start: 08-18-2023 End: 04-03-2024 take 1 capsule by mouth once daily in the morning DULoxetine (CYMBALTA) 30 mg capsule take 1 capsule by mouth every morning 30 capsule 04/03/2024 Active Start: 04-05-2023 End: 10-04-2025 take 1 capsule by mouth once daily DULoxetine (Cymbalta) [address] capsule Indications: Generalized anxiety disorder (CMS/HCC) Take 1 capsule (60 mg) by mouth Daily Do not crush or chew. 30 capsule 5 10/04/2024 10/04/2025 Active DULoxetine HCl A ctive finerenone (KERENDIA) 10 mg tablet (4 sources) Start: 04-16-2024 take 1 tablet by mouth in the morning finerenone (KERENDIA) 10 mg tablet Take 10 mg by mouth in the morning. 30 tablet 5 04/16/2024 Active Start: 04-13-2024 End: 04-13-2024 take 1 tablet by mouth in the morning finerenone (KERENDIA) 10 mg tablet Take 10 mg by mouth in the morning. 90 tablet 1 04/13/2024 04/13/2024 Discontinued (Error) folic acid 1 mg oral tablet (5 sources) Start: 09-19-2024 take 1 tablet by mouth once daily folic acid (Folvite) 1 MG tablet Indications: Rheumatoid arthritis involving multiple sites with positive rheumatoid factor (CMS/HCC) Take 1 tablet (1 mg) by mouth Daily 30 tablet 5 09/19/2024 Active Folic Acid Activ e FreeStyle Tru 14 Day Sensor (1 source) FreeStyle Tru 14 Day Sensor Active gabapentin 100 mg oral capsule (12 sources) Anti-epileptic Agent Start: 2023 take 1 capsule by mouth three times daily gabapentin (NEURONTIN) 100 mg capsule Indications: Diabetic polyneuropathy associated with type 1 diabetes mellitus (CMS-HCC) Take 1 capsule (100 mg total) by mouth 3 (three) times a day. 90 capsule 2 04/13/2024 Active HYDROcodone bitartrate 7.5 mg / ibuprofen 200 mg oral tablet (6 sources) Opioid Agonist, Nonsteroidal Anti-inflammatory Drug End: 2024 HYDROcodone-ibuprofen (Vicoprofen) 7.5-200 MG tablet 09/19/2024 Discontinued hydroxychloroquine sulfate 200 mg oral tablet (1 source) Antimalarial, Antirheumatic Agent Start: 2024 take 1 tablet by mouth in the morning, then take 1 tablet by mouth at bedtime hydroxychloroquine (PLAQUENIL) 200 mg tablet Indications: Rheumatoid arthritis involving multiple sites, unspecified whether rheumatoid factor present (CMS-HCC) Take 1 tablet (200 mg total) by mouth in the morning and 1 tablet (200 mg total) before bedtime. 60 tablet 2 11/19/2024 Active insulin aspart protamine, human 70 unt/ml / insulin aspart, human 30 unt/ml injectable suspension (20 sources) Insulin Analog insulin asp prt- insulin aspart (NovoLOG 70/30) 100 unit/mL (70-30) injection Inject under the skin. Active End: 09-19-2024 insulin aspart protamine-ins ulin aspart (NovoLOG Mix 70-30) (70-30) 100 UNIT/ML [...] Type 1 diabetes mellitus with hyperglycemia (HCC) ([facility]) Inject 50 Units as directed Daily 60 mL 1 08/21/2024 11/19/2024 Active insulin aspart U -100 (NovoLOG) 100 unit/mL injection Novolog U-100 Insulin aspart 100 unit/mL subcutaneous solution Active End: 08-21-2024 insulin aspart (NovoLOG, Jodee sp) 100 UNIT/ML patient supplied pump Inject under the skin continuously Active insulin aspart U -100 (NovoLOG) 100 unit/mL injection Novolog U-100 Insulin aspart 100 unit/mL subcutaneous solution 0 Active NovoLOG Active leflunomide 20 mg oral tablet (8 sources) Antirheumatic Agent Start: 11-19-2024 take 1 tablet by mouth in the morning leflunomide (ARAVA) 20 mg tablet Indications: Rheumatoid arthritis involving multiple sites, unspecified whether rheumatoid factor present ([facility]) Take 1 tablet (20 mg total) by mouth in the morning. 30 tablet 5 11/19/2024 Active End: 09-19-2024 take 1 tablet by mouth once daily leflunomide (Arava) 20 MG tablet Take 20 mg by mouth Daily 09/19/2024 Discontinued Leflunomide Acti ve levothyroxine sodium 0.075 mg oral tablet (4 sources) l-Thyroxine Start: 09-24-2024 take 1 tablet by mouth before mealtime levothyroxine (Synthroid, Levoxyl) 75 MCG tablet Indications: Dyslipidemia (CMS/HCC) Take 1 tablet (75 mcg) by mouth in the morning. Take before meals. 90 tablet 3 09/24/2024 Active take 1 tablet by mouth before me altime levothyroxine (Synthroid, Levoxyl) 75 MCG tablet Take 75 mcg by mouth in the morning. Take before meals. Active methocarbamol 500 mg oral tablet (4 sources) Muscle Relaxant Start: 09-24-2024 take 1 tablet by mouth every eight hours for muscle spasms methocarbamol (Robaxin) 500 MG tablet Indications: Rheumatoid arthritis involving multiple sites with positive rheumatoid factor (CMS/HCC) Take 1 tablet (500 mg) by mouth every 8 (eight) hours if needed for muscle spasms 90 tablet 09/24/2024 Active Start: 05-01-2024 methocarbamol (Robaxin) 500 MG tablet Take 500 mg by mouth in the morning and 500 mg at noon and 500 mg in the evening. 05/01/2024 Active methotrexate 2.5 mg oral tablet (4 sources) Folate Analog Metabolic Inhibitor Start: 09-19-2024 take 4 tablets by mouth every week [...] 09/19/2024 Discontinued nitroglycerin 0.4 mg sublingual tablet (20 sources) Nitrate Vasodilator Start: 11-19-2022 nitroglycerin (NITROSTAT) [...] pantoprazole 40 mg delayed release oral tablet (20 sources) Proton Pump Inhibitor End: 09-19-2024 take [...] disorders] Onset: 08-16-2019 05-21-2022 Chronic Cardiac dysrhythmias (20 sources) Other specified cardiac arrhythmias; 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: [Unspecified atrial fibrillation] Onset: 07-17-2020 09-19-2024 Chronic Chronic kidney disease (1 source) Chronic [...] disease (20 sources) Atherosclerotic heart disease of [place] coronary artery without angina pectoris; 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: [Coronary arteriosclerosis] Onset: 08-16-2019 09-19-2024 Chronic Coronary atherosclerosis and other heart disease (2 sources) Presence of aortocoronary bypass graft; 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: [Presence of coronary angioplasty implant and graft] Onset: 03-22-2022 Episodic Diabetes mellitus with complications (20 sources) Type 2 diabetes mellitus with hypoglycemia without coma; 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: [Type 2 diabetes mellitus with foot ulcer] Onset: 01-08-2022 Chronic Diabetes mellitus without complication (20 sources) Type 2 diabetes mellitus without complications; 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: [Patient encounter status] Onset: 01-08-1965 08-21-2024 Chronic Disorders of lipid metabolism (20 sources) Pure hypercholesterolemia, unspecified; 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: [Mixed hyperlipidemia] Onset: 11-04-2020 07-18-2024 Chronic Esophageal disorders (20 sources) Gastro-esophageal reflux disease without esophagitis; 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: [Gastroesophageal reflux disease] Onset: 08-18-2019 05-21-2022 Chronic Essential hypertension (20 sources) Essential (primary) hypertension; 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: [Essential hypertension] Onset: 08-16-2019 Resolved: 09-19-2024 07-18-2024 Chronic Genitourinary symptoms and ill-defined conditions (20 sources) Urge incontinence of urine; 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: [Urge incontinence] Onset: 04-01-2023 04-01-2023 Chronic Headache; including migraine (20 sources) Migraine; 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: [Migraine, unspecified, not intractable, without status migrainosus] Onset: 08-16-2019 05-21-2022 Chronic Hypertension with complications and secondary hypertension (1 source) Hypertensive chronic kidney disease with stage 1 through stage 4 chronic kidney disease, or unspecified chronic kidney disease; 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: [HTN CKD W/STAGE 1-4 CKD/UNS CKD] Onset: 03-22-2022 Chronic Immunity disorders (20 sources) Sarcoidosis; 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: [Sarcoidosis, unspecified] Onset: 05-21-2022 [...] UNS SITES] Onset: 04-20-2022 Chronic Intracranial injury (2 sources) Concussion without loss of consciousness, initial encounter; 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: [Concussion with no loss of consciousness] Onset: 02-09-2024 02-09-2024 Episodic Mood disorders (20 sources) Major depressive disorder, single episode, unspecified; 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: [Major depressive disorder, single episode, severe without psychotic features] Onset: 08-16-2019 04-01-2023 Chronic Nausea and vomiting (1 source) Vomiting, unspecified; 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: [VOMITING UNSPECIFIED] Onset: 08-18-2022 Episodic Nutritional deficiencies (10 sources) Vitamin D deficiency; 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: [Vitamin D deficiency, unspecified] Onset: 07-18-2024 4 Chronic Osteoarthritis (20 sources) Unspecified osteoarthritis, unspecified site; Translations: [Primary osteoarthritis, right ankle and foot] Onset: 05-13-2022 Chronic Osteoporosis (20 sources) Age-related osteoporosis without current pathological fracture; Translations: [Senile osteoporosis] Onset: 09-18-2019 09-18-2019 Chronic Other acquired deformities (1 source) Contracture, left ankle; Translations: [CONTRACTURE LEFT ANKLE] Onset: 03-22-2022 Chronic Other aftercare (1 source) shelter (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; Translations: [LONG-TERM 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 INSULIN] Onset: 10-19-2022 Episodic Other aftercare (2 sources) Other senior care (current) drug therapy; Translations: [OTH ICE MAKER CURRENT DRUG THERAPY] Onset: 10-19-2022 Episodic Other aftercare (1 source) 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; Translations: [LONG-TERM 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 ASPIRIN] Onset: 08-18-2022 Episodic Other aftercare (6 sources) Long-term current use of drug therapy; Translations: [Other senior care (current) drug therapy] Onset: 09-19-2024 09-19-2024 Episodic Other aftercare (1 source) Drug therapy finding; Translations: [Other [place] (current) drug therapy] 11-19-2024 Episodic Other aftercare (2 sources) Long-term current use of leflunomide; Translations: [Other [place]erman (current) drug therapy] Onset: 11-19-2024 11-19-2024 Episodic Other bone disease and musculoskeletal deformities (1 source) Acquired absence of left foot; Translations: [Acquired absence of left foot] Onset: 12-05-2023 Chronic Other bone disease and musculoskeletal deformities (20 sources) History of amputation of left foot; Translations: [Acquired absence of left foot] Onset: 12-05-2023 12-05-2023 Chronic Other gastrointestinal disorders (1 source) Diarrhea, unspecified; Translations: [DIARRHEA UNSPECIFIED] Onset: 08-18-2022 Episodic Other lower respiratory disease (1 source) Personal history of pneumonia (recurrent); Translations: [PERSONAL HX OF PNEUMONIA RECURRENT] Onset: 08-18-2022 Episodic Peripheral and visceral atherosclerosis (20 sources) Peripheral vascular disease, unspecified; Translations: [Peripheral vascular disease, unspecified] Onset: 01-28-2022 09-19-2024 Chronic Residual codes; unclassified (3 sources) Transient alteration of awareness; Translations: [TRANSIENT ALTERATION OF AWARENESS] Onset: 10-17-2022 Episodic Residual codes; unclassified (1 source) Acquired absence of other specified parts of digestive tract; Translations: [ACQ ABSENCE OTH PART DIGESTV TRACT] Onset: 08-18-2022 Episodic Rheumatoid arthritis and related disease (20 sources) Rheumatoid arthritis, unspecified; Translations: [Rheumatoid nodule, right ankle and foot] Onset: 08-16-2019 09-19-2024 Chronic Screening and history of mental health and substance abuse codes (1 source) Personal history of nicotine dependence; Translations: [PERSONAL HISTORY OF NICOTINE DEPEND] Onset: 10-19-2022 Episodic Septicemia (except in labor) (5 sources) Sepsis, unspecified organism; Translations: [Sepsis due to Enterococcus] Onset: 03-22-2022 Episodic Sprains and strains (4 sources) Strain of muscle, fascia and tendon at neck level, initial encounter; Translations: [Strain of unspecified muscle, fascia and tendon at shoulder and upper arm level, right arm, initial encounter] Onset: 02-09-2024 02-09-2024 Episodic Substance-related disorders (1 source) Other [...] COMPLICATIONS PROC NEC INITIAL] Onset: 03-18-2022 Episodic Diabetes mellitus without complication (11 sources) Presence of insulin pump (external) (internal); Translations: [Insulin pump present] Onset: 10-19-2022 07-18-2024 Episodic E Codes: Fall (3 sources) Unspecified fall, initial encounter; Translations: [UNSPECIFIED FALL INITIAL ENCOUNTER] Onset: 05-20-2022 Episodic Fluid and electrolyte disorders (2 sources) Dehydration; Translations: [Hyperkalemia] Onset: 11-05-2021 04-13-2024 Episodic Fracture of lower limb (4 sources) [...] Dysuria; Translations: [Proteinuria, unspecified] Onset: 05-21-2022 Episodic Malaise and fatigue (4 sources) Weakness; Translations: [Other fatigue] Onset: 08-18-2022 03-26-2024 Episodic Mood disorders (20 sources) Mood disorders; Translations: [DEPRESSION UNSPECIFIED] Onset: 07-12-2023 Resolved: 04-13-2024 07-12-2023 Nonspecific chest pain (4 sources) Chest pain, unspecified; Translations: [Other chest pain] Onset: 04-30-2022 Episodic Open wounds of extremities (4 sources) Puncture wound without foreign body, left foot, initial encounter; Translations: [PUNCT WOUND W/O FB LT FOOT INITIAL] Onset: 10-27-2021 Episodic Other aftercare (2 sources) Encounter for therapeutic drug level monitoring; Translations: [Encounter for therapeutic drug level monitoring] Onset: 03-26-2024 Episodic Other aftercare (12 sources) Patient encounter status; Translations: [Dietary counseling and surveillance] Onset: 07-18-2024 Resolved: 09-19-2024 07-18-2024 Episodic Other aftercare (12 sources) Long-term current use of insulin; 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] Onset: 07-18-2024 07-18-2024 Episodic Other bone disease and musculoskeletal deformities [...] Onset: 01-08-2022 Episodic Other connective tissue disease (20 sources) Primary fibromyalgia syndrome; Translations: [Fibromyalgia] Onset: [...] with routine healing] Onset: 05-21-2022 Episodic Other fractures (20 sources) Compression fracture of lumbar spine; Translations: [Wedge compression fracture of unspecified lumbar vertebra, initial encounter for closed fracture] Onset: 09-29-2020 05-21-2022 Episodic Other gastrointestinal disorders (3 sources) [...] Overweight; Translations: [Overweight] Onset: 04-01-2023 Episodic Other nutritional; endocrine; and metabolic disorders (20 sources) Overweight; Translations: [Overweight] Onset: 04-01-2023 04-01-2023 Episodic Other screening for suspected conditions (not mental disorders or infectious disease) (1 source) Other specified abnormal findings of blood chemistry; Translations: [OTH SPEC ABNORMAL FINDINGS BLD CHEM] Onset: 03-22-2022 Episodic Other skin disorders (1 source) Localized swelling, mass and lump, left lower limb; Translations: [LOC SWELL MASS LUMP LT LOWER LIMB] Onset: 10-28-2021 Episodic Pathological fracture (20 sources) Pathological fracture due to osteoporosis; Translations: [Other osteoporosis with current pathological fracture, unspecified site, initial encounter for fracture] Onset: 07-17-2020 05-21-2022 Episodic Phlebitis; thrombophlebitis and thromboembolism (20 sources) Personal history of other venous thrombosis [...] W/HYPOXIA] Onset: 03-22-2022 Episodic Superficial injury; contusion (2 sources) Contusion of right hip, initial encounter; Translations: [Contusion of left knee] Onset: 05-20-2022 02-10-2024 Episodic Viral infection (1 source) COVID-19 Onset: 07-27-2021 Resolved: 07-27-2021 Results Test Name Value Interpretation Reference Range Facility XR OSSEOUS SURVEY LIMITEDon 11-20-2024 XR OSSEOUS SURVEY LIMITED XR OSSEOUS SURVEY LIMITED XR OSSEOUS SURVEY LIMITED Rheumatoid arthritis involving multiple sites, unspecified whether [place] factor present [place] [place] Findings: There is grossly no fracture or destructive lesion. Impression: * No acute findings. 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 Findings are bilateral but most notable on the right. * Consider MRI if you suspect occult process. * Finalized by Pavan Ames MD on 11/20/2024 7:53 AM Normal [facility] CBC AND AUTO DIFFon 11-20-19 25 ABSOLUTE BASOPHIL 0.1 X10E9/L Normal 0.0-0.2 [facility] Comment on above: Performed By: #### 2 4331-1, 3016-3 #### [facility] ([id number]) [address], [address] [place] [address] ABSOLUTE NEUTROPHIL 5.8 X10E9/L Normal 1.5-6.6 [facility] Comment on above: Performed By: #### 2 4331-1, 3015-3 #### [facility] ([id number]) [address], [address] [place] [address] Basophils/100 WBC (Bld) 1.5 % Normal [facility] Comment on above: Performed By: #### 2 4331-1, 3015-3 #### [facility] ([id number]) [address], [address] [place] [address] Eosinophils (Bld) [#/Vol] 0.3 10*3/uL Normal 0.0-0.4 [facility] Comment on above: Performed By: #### 2 4331-1, 3015- #### [facility] ([id number]) [address], [address] [place] [address] Eosinophils/100 WBC (Bld) 3.6 % Normal [facility] Comment on above: Performed By: #### 2 4331-1, 3015-3 #### [facility] ([id number]) [address], [address] [place] [address] Erythrocyte distribution width (RBC) [Ratio] 19.0 % High 11.5-15.0 [facility] Comment on above: Performed By: #### 2 4331-1, 3015-3 #### [facility] ([id number]) [address], [address] [place] [address] Hematocrit (Bld) [Volume fraction] 43.6 % Normal 35-47 [facility] Comment on above: Performed By: #### 2 4331-1, 3015-3 #### [facility] ([id number]) [address], [address] [place] [address] Hemoglobin (Bld) [Mass/Vol] 14.6 g/dL Normal 11.7-15.5 [facility] Comment on above: Performed By: #### 2 4331-1, 3016-3 #### [facility] ([id number]) [address], [facility] [address] [place] [address] Lymphocytes (Bld) [#/Vol] 1.1 10*3/uL Normal 1.0-3.5 [facility] Comment on above: Performed By: #### 2 4331-1, 3015-3 #### [facility] ([id number]) [address], [facility] [address] [place] [address] Lymphocytes/100 WBC (Bld) 14.2 % Normal [facility] Comment on above: Performed By: #### 2 4331-1, 3015- #### [facility] ([id number]) [address], [facility] [address] [place] [address] MCH (RBC) [Entitic mass] 29.8 pg Normal 27-34 [facility] Comment on above: Performed By: #### 2 4331-1, 3015-3 #### [facility] ([id number]) [address], [facility] [address] [place] [address] MCHC (RBC) [Mass/Vol] 33.5 g/dL Normal 32-36 [facility] Comment on above: Performed By: #### 2 4331-1, 3015- #### [facility] ([id number]) [address], [facility] [address] [place] [address] MCV (RBC) [Entitic vol] 89 fL Normal 80-100 [facility] Comment on above: Performed By: #### 2 4331-1, 3015- #### [facility] ([id number]) [address] [address] [place] [address] Monocytes (Bld) [#/Vol] 0.5 10*3/uL Normal 0-0.9 [facility] Comment on above: Performed By: #### 2 4331-1, 3015-3 #### [facility] ([id number]) [address], [address] [place] [address] Monocytes/100 WBC (Bld) 6.2 % Normal [facility] Comment on above: Performed By: #### 2 4331-1, 6-3 #### [facility] ([id number]) [address], [address] [place] [address] Neutrophils/100 WBC (Bld) 74.5 % Normal [facility] Comment on above: Performed By: #### 2 4331-1, 3015-3 #### [facility] ([id number]) [address], [address] [place] [address] Platelet mean volume (Bld) [Entitic vol] 9.6 fL Normal 7-12 [facility] Comment on above: Performed By: #### 2 4331-1, 3015-3 #### [facility] ([id number]) [address], [address] [place] [address] Platelets (Bld) [#/Vol] 262 10*3/uL Normal 150-450 [facility] Comment on above: Performed By: #### 2 4331-1, 3015-3 #### [facility] ([id number]) [address], [address] [place] [address] RBC COUNT 4.89 X10E12/L Normal 3.80-5.20 [facility] Comment on above: Performed By: #### 2 4331-1, 3015-3 #### [facility] ([id number]) [address], [address] [place] [address] WBC (Bld) [#/Vol] 7.8 10*3/uL Normal 4.0-11.0 [facility] Comment on above: Performed By: #### 2 4331-1, 6-3 #### [facility] ([id number]) [address], [address] [place] [address] COMPREHENSIVE METABOLIC PANE [facility] 11-19-2024 Albumin [Mass/Vol] 4.1 g/dL Normal 3.2-5.3 [facility] Comment on above: Performed By: #### 1 5205-8, 3016-3, CMP, 1988-01, CBCA, 9, 52827-0, 68799-9, 21348-9 #### [facility] ([id number]) [address], [address] [place] [address] ALP [Catalytic activity/Vol] 154 U/L High 39-130 [facility] Comment on above: Performed By: #### 1 5-8, 6-3, CMP, 1988-01, CBCA, 2132-05, 73073-8, 89914-4, 70137-8 #### [facility] ([id number]) [address], [address] [place] [address] ALT [Catalytic activity/Vol] 19 U/L Normal 0-31 [facility] Comment on above: Performed By: #### 1 5-8, 6-3, CMP, 1988-01, CBCA, 2132-05, 07241-7, 92408-1, 93468-7 #### [facility] ([id number]) [address], [facility] [address] [place] [address] Anion gap [Moles/Vol] 12 mmol/L Normal 5-15 [facility] Comment on above: Performed By: #### 1 5-8, 6-3, CMP, 1988-01, CBCA, 2132-05, 44174-5, 70870-5, 23197-3 #### [facility] ([id number]) [address], [address] [place] [address] AST [Catalytic activity/Vol] 28 U/L Normal 0-41 [facility] Comment on above: Performed By: #### 1 5-8, 6-3, CMP, 1988-01, CBCA, 9, 21023-8, 36745-9, 32240-6 #### [facility] ([id number]) [address], [address] [place] [address] Bilirubin [Mass/Vol] 0.4 mg/dL Normal 0.3-1.2 [facility] Comment on above: Performed By: #### 1 5-8, 6-3, CMP, 1988-01, CBCA, 2132-05, 84742-6, 84524-1, 99556-0 #### [facility] ([id number]) [address], [address] [place] [address] Calcium [Mass/Vol] 10.1 mg/dL Normal 8.5-10.5 [facility] Comment on above: Performed By: #### 1 5204-8, 3015-3, CMP, 1988-01, CBCA, 2132-05, 34117-8, 16488-4, 69997-1 #### [facility] ([id number]) [address], [address] [place] [address] Chloride [Moles/Vol] 99 mmol/L Normal 98-109 [facility] Comment on above: Performed By: #### 1 5204-8, 3015-3, CMP, 1988-01, CBCA, 2132-05, 74884-6, 06875-2, 72833-1 #### [facility] ([id number]) [address], [address] [place] [address] CO2 [Moles/Vol] 24 mmol/L Normal 22-32 [facility] Comment on above: Performed By: #### 1 5204-8, 3015-3, CMP, 1988-01, CBCA, 2132-05, 81625-3, 98441-5, 19011-6 #### [facility] ([id number]) [address], [address] [place] [address] Creatinine [Mass/Vol] 1.24 mg/dL High 0.40-1.00 [facility] Comment on above: Result Comment: METH OD TRACEABLE TO IDMS STANDARD Performed By: #### 1 5204-8, 3015-3, CMP, 1988-01, CBCA, 2132-05, 45076-4, 34087-7, 73584-4 #### [facility] ([id number]) [address] [facility], [address] [place] [address] GFR/1.73 sq M.predicted among non-blacks MDRD (S/P/Bld) [Vol rate/Area] 49 mL/min/{1.73_m2} Low >59 [facility] Comment on above: Result Comment: Reported eGFR is based on the CKD-EPI 2020 equation that does not use a race coefficient. Performed By: #### 1 5204-8, 3015-3, [facility], 1988-01, CBCA, 2132-05, 34276-6, 92037-2, 32474-8 #### [facility] ([id number]) [address] [facility], [address] [place] [address] Glucose [Mass/Vol] 189 mg/dL High 65-99 [facility] Comment on above: Performed By: #### 1 5204-8, 3015-3, CMP, 1988-01, CBCA, 2132-05, 68028-7, 47879-0, 18889-9 #### [facility] ([id number]) [address], [address] [place] [address] Potassium [Moles/Vol] 5.0 mmol/L Normal 3.5-5.0 [facility] Comment on above: Performed By: #### 1 5204-8, 3015-3, CMP, 1988-01, CBCA, 2132-05, 92149-9, 47583-8, 33647-0 #### [facility] ([id number]) [address], [address] [place] [address] Protein [Mass/Vol] 7.9 g/dL Normal 6.0-8.0 [facility] Comment on above: Performed By: #### 1 5205-8, 3016-3, CMP, 1988-01, CBCA, 2132-05, 13451-6, 37846-9, 42065-3 #### [facility] ([id number]) [address], [address] [place] [address] Sodium [Moles/Vol] 135 mmol/L Normal 134-146 [facility] Comment on above: Performed By: #### 1 5205-8, 6-3, CMP, 1988-01, CBCA, 2132-05, 40742-5, 99783-2, 52157-2 #### [facility] ([id number]) [address], [facility] [address] [place] [address] Urea nitrogen [Mass/Vol] 25 mg/dL Normal 5-27 [facility] Comment on above: Performed By: #### 1 5-8, 6-3, CMP, 1988-01, CBCA, 2132-05, 19846-3, 08369-2, 61405-2 #### [facility] ([id number]) [address], [address] [place] [address] CRP [Mass/Vol]on 11-19-2024 C REACTIVE PROTEIN 0.5 mg/dL Normal 0.000-0.744 [facility] Comment on above: Performed By: #### 2 4331-1, 3015-3 #### [facility] ([id number]) [address], [address] [place] [address] ESR Photometric method (Bld) [Velocity]on 11-19-2024 ESR, ERYTHROCYTE SEDIMENTATION RATE 29 mm/h Normal 0-30 [facility] Comment on above: Performed By: #### 2 4331-1, 6-3 #### [facility] ([id number]) [address], [address] [place] [address] Rheumatoid factor Nephelomet ry Qn (S)on 11-19-2024 RHEUMATOID FACTOR 54 IU/mL High <20 [facility] Comment on above: Performed By: #### 1 5205-8, 3016-3, CMP, 1988-01, CBCA, 2132-05, 64086-3, 59193-8, 35728-5 #### [facility] ([id number]) [address] [facility], [address] [place] [address] TSH Qnon 11-19-2024 TSH 3.01 uIU/mL Normal 0.49-4.67 [facility] Comment on above: Performed By: #### 1 5205-8, 3016-3, CMP, 1988-01, CBCA, 2132-05, 05586-5, 47295-5, 47805-5 #### [facility] ([id number]) [address] [facility], [address] [place] [address] VITAMIN B12on 11-19-2024 Cobalamin (Vitamin B12) [Mass/Vol] 279 pg/mL Normal 180-914 [facility] Comment on above: Performed By: #### 2 4331-1, 3016-3 #### [facility] ([id number]) [address] [facility], [address] [place] [address] Vitamin D+Metabolites [Mass/ Vol]on 11-19-2024 VITAMIN D 25 HYD TOT 55.1 ng/mL Normal 30-100 [facility] Comment on above: Result Comment: Vitamin D status 25 [place] Vitamin D Deficiency <20 ng/mL Insufficiency 20-29 ng/mL Sufficiency 30-100 ng/mL Toxicity >100 ng/mL NOTE: A pediatric reference range has not been established by the behavioral health associate of this kit. The [place] [employer] recommends a Vitamin D level of = or >20ng/mL in infants and children. Performed By: #### 2 4331-1, 3016-3 #### [facility] ([id number]) [address], [address] [place] [address] XR CHEST 2 VWSon 11-19-2024 XR CHEST 2 VWS XR CHEST 2 VWS EXAM: XR CHEST 2 VWS CLINICAL INFORMATION: Rheumatoid arthritis involving multiple sites, unspecified whether rheumatoid factor present ([facility] COMPARISON: None. FINDINGS: There are low lung volumes with associated hypoventilatory changes. There is mild left basilar atelectasis. There are no focal consolidations. There is no pulmonary edema or pleural effusions. Heart size is within normal limits. There are changes of prior sternotomy. Changes of lumbar kyphoplasty are noted. IMPRESSION: 1. No acute cardiopulmonary disease. 2. Postsurgical changes, as above. Finalized by Fernando Brenner MD on 11/19/2024 6:46 PM [facility] Follow-Upon 10-15-2024 Follow-Up [facility] Glucose (Bld) [Mass/Vol]Orde red By: Meenakshi Heck on 08-21-2024 Glucose Blood, POC 100 mg/dL [facility] - Hematology and Cell countson 08-21-2024 HbA1c (Bld) [Mass fraction] 7.5 % [facility] No Panel InformationOrdered By: Meenakshi Heck on 08-21-2024 [facility] Follow-Upon 08-13-2024 Follow-Up [facility] 36on 05-15-2024 36 Looks like patient told Dr Shipman was already taking these medications. Dr shipman did not prescribe patient anything. She will need to contact pcp office. [facility] 36 Kady from [place] called for clarification on calcium and vit D3 order from , [facility] does not currently have an order for calcium and vit D3 for patient, please fax clarification to Fax:[phone] [facility] 36on 05-08-2024 36 [facility] 36 [facility] Telephoneon 05-08-2024 Telephone [facility] 30on 05-01-[address] [facility] [address] [facility] BASIC METABOLIC PANELon 04-06 Anion gap [Moles/Vol] 10 mmol/L Normal 7-20 [facility] Comment on above: Performed By: #### L AB15 ####[facility] ([facility])[address] [place] [address] Calcium [Mass/Vol] 9.1 mg/dL Normal 8.6-10.[address] [facility] Comment on above: Performed By: #### L AB15 ####[facility] ([facility])[address] [place] [address] Chloride [Moles/Vol] 95 mmol/L Low 98-107 [facility] Comment on above: Performed By: #### L AB15 ####[facility] (BEAKER)[address] [place] [address] CO2 [Moles/Vol] 32 mmol/L High 21-31 [facility] Comment on above: Performed By: #### L AB15 ####[facility] (BEAKER)[address] [place] [address] Creatinine [Mass/Vol] 0.76 mg/dL Normal 0.60-1.20 [facility] Comment on above: Performed By: #### L AB15 ####[facility] ([facility])[address] [place] [address] GLOMERULAR FILTRATION RATE ML/MIN/1.73 SQ M.PREDICTED 87.4 mL/min/1.73m*2 Normal >60.0 [facility] Comment on above: Result Comment: [facility]???s estimated glomerular filtration rate (eGFR) will [...] of individuals. Performed By: #### L AB15 ####[facility] ([facility])[address] [place] [address] Glucose [Mass/Vol] 102 mg/dL High 70-[address] [facility] Comment on above: Performed By: #### L AB15 ####[facility] ([facility])[address] [place] [address] Potassium [Moles/Vol] 4.4 mmol/L Normal 3.5-5.1 [facility] Comment on above: Performed By: #### L AB15 ####[facility] ([facility])[address] [place] [address] Sodium [Moles/Vol] 133 mmol/L Low 136-[address] [facility] Comment on above: Performed By: #### L AB15 ####[facility] ([facility])[address] [place] [address] Urea nitrogen [Mass/Vol] 23 mg/dL Normal 7-25 [facility] Comment on above: Performed By: #### L AB15 ####[facility] ([facility])[address] [place] [address] UREA NITROGEN/CREATININE (MASS RATIO) IN SER/PLAS 30.[address] [facility] Comment on above: Performed By: #### L AB15 ####[facility] ([facility])[address] [place] [address] CBCon 05-01-2024 Erythrocyte distribution width (RBC) [Ratio] 15.1 % High 11.5-15.0 [facility] Comment on above: Performed By: #### L [id number] ####[facility] ([facility])[address] [place] [address] ERYTHROCYTE MEAN CORPUSCULAR HEMOGLOBIN CONCENTRATION (G/DL) BY AUTOMATED 32.2 g/dL Normal 32.0-35.0 [facility] Comment on above: Performed By: #### L AB294 ####[facility] ([facility])[address] [place] [address] Hematocrit (Bld) [Volume fraction] 35.4 % Low 36.0-48.0 [facility] Comment on above: Performed By: #### L [id number] ####[facility] ([facility])[address] [place] [place] [address] Hemoglobin (Bld) [Mass/Vol] 11.4 g/dL Low 12.0-15.0 [facility] Comment on above: Performed By: #### L [id number] ####[facility] ([facility])[address] [place] [address] MCH (RBC) [Entitic mass] 29.8 pg Normal 27.0-33.0 [facility] Comment on above: Performed By: #### L AB294 ####[facility] ([facility])[address] [place] [address] MCV (RBC) [Entitic vol] 92.7 fL Normal 82.0-98.0 [facility] Comment on above: Performed By: #### L AB294 ####[facility] ([facility])[address] [place] [address] PLATELETS (10*3/UL) IN BLOOD AUTOMATED COUNT 425 10*3/uL High 150-400 [facility] Comment on above: Performed By: #### L [id number] ####[facility] ([facility])[address] [place] [address] RBC (Bld) [#/Vol] 3.82 10*6/uL Normal 3.80-5.00 [facility] Comment on above: Performed By: #### L [id number] ####[facility] ([facility])[address] [place], [place] [address] WBC (Bld) [#/Vol] 9.39 10*3/uL Normal 4.00-10.60 [facility] Comment on above: Performed By: #### L AB294 ####[facility] ([facility])[address] [place] [address] CONSULTon 05-01-2024 CONSULT 13:25-SW requested transport for patient-await response. 14:40-SW notified [facility] can transport at 3:20pm-SW to make packet. 15:15-SW gave packet to [facility] crew.[id number] completed. OTM will continue to follow. Normal [facility] DSon 05-01-[address] [facility] MAGNESIUMon 05-01-2024 Magnesium [Mass/Vol] 1.9 mg/dL Normal 1.9-2.7 [facility] Comment on above: Performed By: #### L AB103 ####[facility] ([facility])[address] [place] [address] NURSNOTEon 05-01-2024 NURSNOTE Window Installer attempted to call [facility] for report. Window Installer was on hold for 5 minutes, was not able to leave voicemail. Normal [facility] PHOSPHORUSon 05-01-2024 Magnesium [Mass/Vol] 3.5 mg/dL Normal 2.5-5.0 [facility] Comment on above: Performed By: #### L AB113 ####[facility] ([facility])[address] [place] [address] POCT GLUCOSE METER UNSOLICIT ED RESULTSon 05-01-2024 Glucose [Mass/Vol] 99 mg/dL Normal 70-[address] [facility] Comment on above: Order Comment: Waive d Testing in the ED is performed under the ED CLIA certificate #[id number]. Result Comment: cmci [email or web address] Performed By: #### L [id number] ####[facility] ([facility])[address] [place] [address] Glucose [Mass/Vol] 103 mg/dL Normal 70-[address] [facility] Comment on above: Order Comment: Waive d Testing in the ED is performed under the ED CLIA certificate #[id number]. Result Comment: elac umsky Performed By: #### L [id number] ####[facility] ([facility])[address] [place] [address] BASIC METABOLIC PANELon 08-2 Anion gap [Moles/Vol] 11 mmol/L Normal 7-20 [facility] Comment on above: Performed By: #### L [id number] ####[facility] ([facility])[address] [place] [address] Calcium [Mass/Vol] 9.0 mg/dL Normal 8.6-10.[address] [facility] Comment on above: Performed By: #### L [id number] ####[facility] ([facility])[address] [place] [address] Chloride [Moles/Vol] 94 mmol/L Low 98-107 [facility] Comment on above: Performed By: #### L [id number] ####[facility] ([facility])[address] [place] [address] CO2 [Moles/Vol] 34 mmol/L High 21-31 [facility] Comment on above: Performed By: #### L [id number] ####[facility] ([facility])[address] [place] [address] Creatinine [Mass/Vol] 0.78 mg/dL Normal 0.60-1.20 [facility] Comment on above: Performed By: #### L [id number] ####[facility] ([facility])[address] [place] [address] GLOMERULAR FILTRATION RATE ML/MIN/1.73 SQ M.PREDICTED 84.8 mL/min/1.73m*2 Normal >60.0 [facility] Comment on above: Result Comment: [facility]???s estimated glomerular filtration rate (eGFR) will [...] of individuals. Performed By: #### L [id number] ####[facility] ([facility])[address] [place] [address] Glucose [Mass/Vol] 121 mg/dL High 70-[address] [facility] Comment on above: Performed By: #### L [id number] ####[facility] ([facility])[address] [place] [address] Potassium [Moles/Vol] 4.4 mmol/L Normal 3.5-5.1 [facility] Comment on above: Performed By: #### L [id number] ####[facility] ([facility])[address] [place] [address] Sodium [Moles/Vol] 135 mmol/L Low 136-[address] [facility] Comment on above: Performed By: #### L [id number] ####[facility] ([facility])[address] [place] [address] Urea nitrogen [Mass/Vol] 20 mg/dL Normal 7-25 [facility] Comment on above: Performed By: #### L [id number] ####[facility] ([facility])[address] [place] [address] UREA NITROGEN/CREATININE (MASS RATIO) IN SER/PLAS 25.[address] [facility] Comment on above: Performed By: #### L [id number] ####[facility] ([facility])[address] [place] [address] CBCon 04-30-2024 Erythrocyte distribution width (RBC) [Ratio] 14.7 % Normal 11.5-15.0 [facility] Comment on above: Performed By: #### L [id number] ####[facility] ([facility])[address] [place] [address] ERYTHROCYTE MEAN CORPUSCULAR HEMOGLOBIN CONCENTRATION (G/DL) BY AUTOMATED 31.7 g/dL Low 32.0-35.0 [facility] Comment on above: Performed By: #### L [id number] ####[facility] ([facility])[address] [place] [address] Hematocrit (Bld) [Volume fraction] 36.3 % Normal 36.0-48.0 [facility] Comment on above: Performed By: #### L [id number] ####[facility] ([facility])[address] [place] [address] Hemoglobin (Bld) [Mass/Vol] 11.5 g/dL Low 12.0-15.0 [facility] Comment on above: Performed By: #### L [id number] ####[facility] ([facility])[address] [place] [address] MCH (RBC) [Entitic mass] 30.3 pg Normal 27.0-33.0 [facility] Comment on above: Performed By: #### L [id number] ####[facility] ([facility])[address] [place] [address] MCV (RBC) [Entitic vol] 95.8 fL Normal 82.0-98.0 [facility] Comment on above: Performed By: #### L [id number] ####[facility] ([facility])[address] [place] [address] PLATELETS (10*3/UL) IN BLOOD AUTOMATED COUNT 381 10*3/uL Normal 150-400 [facility] Comment on above: Performed By: #### L [id number] ####[facility] ([facility])[address] [place] [address] RBC (Bld) [#/Vol] 3.79 10*6/uL Low 3.80-5.00 [facility] Comment on above: Performed By: #### L [id number] ####[facility] ([facility])[address] [place] [address] WBC (Bld) [#/Vol] 9.02 10*3/uL Normal 4.00-10.60 [facility] Comment on above: Performed By: #### L [id number] ####[facility] ([facility])[address] [place] [address] MAGNESIUMon 04-30-2024 Magnesium [Mass/Vol] 1.8 mg/dL Low 1.9-2.7 [facility] Comment on above: Performed By: #### L [id number] ####[facility] ([facility])[address] [place] [address] PHOSPHORUSon 04-30-2024 Magnesium [Mass/Vol] 3.2 mg/dL Normal 2.5-5.0 [facility] Comment on above: Performed By: #### L [id number] ####[facility] ([facility])[address] [place] [address] POCT GLUCOSE METER UNSOLICIT ED RESULTSon 04-30-2024 Glucose [Mass/Vol] 160 mg/dL High 70-[address] [facility] Comment on above: Order Comment: Waive d Testing in the ED is performed under the ED CLIA certificate #[id number]. Result Comment: [email or web address] [email or web address] Performed By: #### L [id number] ####[facility] ([facility])[address] [place] [address] Glucose [Mass/Vol] 111 mg/dL High 70-[address] [facility] Comment on above: Order Comment: Waive d Testing in the ED is performed under the ED CLIA certificate #[id number]. Result Comment: epoo [email or web address] Performed By: #### L [id number] ####[facility] ([facility])[address] [place] [address] Glucose [Mass/Vol] 172 mg/dL High 70-[address] [facility] Comment on above: Order Comment: Waive d Testing in the ED is performed under the ED CLIA certificate #[id number]. Result Comment: epoo [email or web address] Performed By: #### L [id number] ####[facility] ([facility])[address] [place] [address] Glucose [Mass/Vol] 160 mg/dL High 70-[address] [facility] Comment on above: Order Comment: Waive d Testing in the ED is performed under the ED CLIA certificate #[id number]. Result Comment: epoo [email or web address] Performed By: #### L [id number] ####[facility] ([facility])[address] [place] [address] BASIC METABOLIC PANELon 08-2 Anion gap [Moles/Vol] 10 mmol/L Normal 7-20 [facility] Comment on above: Performed By: #### L [id number] ####[facility] ([facility])[address] [place] [address] Calcium [Mass/Vol] 8.9 mg/dL Normal 8.6-10.[address] [facility] Comment on above: Performed By: #### L [id number] ####[facility] ([facility])[address] [place] [address] Chloride [Moles/Vol] 95 mmol/L Low 98-107 [facility] Comment on above: Performed By: #### L [id number] ####[facility] ([facility])[address] [place] [address] CO2 [Moles/Vol] 34 mmol/L High 21-31 [facility] Comment on above: Performed By: #### L [id number] ####[facility] ([facility])[address] [place] [address] Creatinine [Mass/Vol] 0.89 mg/dL Normal 0.60-1.20 [facility] Comment on above: Performed By: #### L [id number] ####[facility] ([facility])[address] [place] [address] GLOMERULAR FILTRATION RATE ML/MIN/1.73 SQ M.PREDICTED 72.4 mL/min/1.73m*2 Normal >60.0 [facility] Comment on above: Result Comment: [facility]???s estimated glomerular filtration rate (eGFR) will [...] of individuals. Performed By: #### L [id number] ####[facility] ([facility])[address] [place] [address] Glucose [Mass/Vol] 173 mg/dL High 70-[address] [facility] Comment on above: Performed By: #### L [id number] ####[facility] ([facility])[address] [place] [address] Potassium [Moles/Vol] 4.7 mmol/L Normal 3.5-5.1 [facility] Comment on above: Performed By: #### L [id number] ####[facility] ([facility])[address] [place] [address] Sodium [Moles/Vol] 134 mmol/L Low 136-[address] [facility] Comment on above: Performed By: #### L [id number] ####[facility] ([facility])[address] [place] [address] Urea nitrogen [Mass/Vol] 16 mg/dL Normal 7-25 [facility] Comment on above: Performed By: #### L [id number] ####[facility] ([facility])[address] [place] [address] UREA NITROGEN/CREATININE (MASS RATIO) IN SER/PLAS 18.[address] [facility] Comment on above: Performed By: #### L [id number] ####[facility] ([facility])[address] [place] [address] CBCon 04-29-2024 Erythrocyte distribution width (RBC) [Ratio] 14.6 % Normal 11.5-15.0 [facility] Comment on above: Performed By: #### L [id number] ####[facility] ([facility])[address] [place] [address] ERYTHROCYTE MEAN CORPUSCULAR HEMOGLOBIN CONCENTRATION (G/DL) BY AUTOMATED 31.0 g/dL Low 32.0-35.0 [facility] Comment on above: Performed By: #### L [id number] ####[facility] ([facility])[address] [place] [address] Hematocrit (Bld) [Volume fraction] 33.9 % Low 36.0-48.0 [facility] Comment on above: Performed By: #### L [id number] ####[facility] ([facility])[address] [place] [address] Hemoglobin (Bld) [Mass/Vol] 10.5 g/dL Low 12.0-15.0 [facility] Comment on above: Performed By: #### L [id number] ####[facility] ([facility])[address] [place] [address] MCH (RBC) [Entitic mass] 30.1 pg Normal 27.0-33.0 [facility] Comment on above: Performed By: #### L [id number] ####[facility] ([facility])[address] [place] [address] MCV (RBC) [Entitic vol] 97.1 fL Normal 82.0-98.0 [facility] Comment on above: Performed By: #### L [id number] ####[facility] ([facility])[address] [place] [address] PLATELETS (10*3/UL) IN BLOOD AUTOMATED COUNT 320 10*3/uL Normal 150-400 [facility] Comment on above: Performed By: #### L [id number] ####[facility] ([facility])[address] [place] [address] RBC (Bld) [#/Vol] 3.49 10*6/uL Low 3.80-5.00 [facility] Comment on above: Performed By: #### L [id number] ####[facility] ([facility])[address] [place] [address] WBC (Bld) [#/Vol] 9.12 10*3/uL Normal 4.00-10.60 [facility] Comment on above: Performed By: #### L [id number] ####[facility] ([facility])[address] [place] [address] MAGNESIUMon 04-29-2024 Magnesium [Mass/Vol] 1.9 mg/dL Normal 1.9-2.7 [facility] Comment on above: Performed By: #### L [id number] ####[facility] ([facility])[address] [place] [address] NURSNOTEon 04-29-[address] [facility] PHOSPHORUSon 04-29-2024 Magnesium [Mass/Vol] 3.1 mg/dL Normal 2.5-5.0 [facility] Comment on above: Performed By: #### L [id number] ####[facility] ([facility])[address] [place] [address] POCT GLUCOSE METER UNSOLICIT ED RESULTSon 04-29-2024 Glucose [Mass/Vol] 116 mg/dL High 70-[address] [facility] Comment on above: Order Comment: Waive d Testing in the ED is performed under the ED CLIA certificate #[id number]. Result Comment: [email or web address] Performed By: #### L [id number] ####[facility] ([facility])[address] [place] [address] Glucose [Mass/Vol] 153 mg/dL High 70-[address] [facility] Comment on above: Order Comment: Waive d Testing in the ED is performed under the ED CLIA certificate #[id number]. Result Comment: epoo [email or web address] Performed By: #### L [id number] ####[facility] ([facility])[address] [place] [address] Glucose [Mass/Vol] 205 mg/dL High 70-[address] [facility] Comment on above: Order Comment: Waive d Testing in the ED is performed under the ED CLIA certificate #[id number]. Result Comment: epoo [email or web address] Performed By: #### L [id number] ####[facility] ([facility])[address] [place] [address] Glucose [Mass/Vol] 181 mg/dL High 70-[address] [facility] Comment on above: Order Comment: Waive d Testing in the ED is performed under the ED CLIA certificate #[id number]. Result Comment: [email or web address] Performed By: #### L [id number] ####[facility] ([facility])[address] [place] [address] BASIC METABOLIC PANELon 08-2 Anion gap [Moles/Vol] 7 mmol/L Normal 7-20 [facility] Comment on above: Performed By: #### L [id number] ####[facility] ([facility])[address] [place] [address] Calcium [Mass/Vol] 8.2 mg/dL Low 8.6-10.[address] [facility] Comment on above: Performed By: #### L [id number] ####[facility] ([facility])[address] [place] [address] Chloride [Moles/Vol] 98 mmol/L Normal 98-107 [facility] Comment on above: Performed By: #### L [id number] ####[facility] ([facility])[address] [place] [address] CO2 [Moles/Vol] 38 mmol/L High 21-31 [facility] Comment on above: Performed By: #### L [id number] ####[facility] ([facility])[address] [place] [address] Creatinine [Mass/Vol] 0.66 mg/dL Normal 0.60-1.20 [facility] Comment on above: Performed By: #### L [id number] ####[facility] ([facility])[address] [place] [address] GLOMERULAR FILTRATION RATE ML/MIN/1.73 SQ M.PREDICTED 97.9 mL/min/1.73m*2 Normal >60.0 [facility] Comment on above: Result Comment: [facility]???s estimated glomerular filtration rate (eGFR) will [...] of individuals. Performed By: #### L [id number] ####[facility] ([facility])[address] [place] [address] Glucose [Mass/Vol] 65 mg/dL Low 70-[address] [facility] Comment on above: Performed By: #### L [id number] ####[facility] ([facility])[address] [place] [place] [address] Potassium [Moles/Vol] 3.9 mmol/L Normal 3.5-5.1 [facility] Comment on above: Performed By: #### L [id number] ####[facility] ([facility])[address] [place] [address] Sodium [Moles/Vol] 139 mmol/L Normal 136-[address] [facility] Comment on above: Performed By: #### L [id number] ####[facility] ([facility])[address] [place] [place] [address] Urea nitrogen [Mass/Vol] 15 mg/dL Normal 7-25 [facility] Comment on above: Performed By: #### L [id number] ####[facility] ([facility])[address] [place] [address] UREA NITROGEN/CREATININE (MASS RATIO) IN SER/PLAS 22.[address] [facility] Comment on above: Performed By: #### L [id number] ####[facility] ([facility])[address] [place] [address] CBCon 04-28-2024 Erythrocyte distribution width (RBC) [Ratio] 14.3 % Normal 11.5-15.0 [facility] Comment on above: Performed By: #### L [id number] ####[facility] ([facility])[address] [place] [address] ERYTHROCYTE MEAN CORPUSCULAR HEMOGLOBIN CONCENTRATION (G/DL) BY AUTOMATED 32.3 g/dL Normal 32.0-35.0 [facility] Comment on above: Performed By: #### L [id number] ####[facility] ([facility])[address] [place] [address] Hematocrit (Bld) [Volume fraction] 31.3 % Low 36.0-48.0 [facility] Comment on above: Performed By: #### L [id number] ####[facility] ([facility])[address] [place] [address] Hemoglobin (Bld) [Mass/Vol] 10.1 g/dL Low 12.0-15.0 [facility] Comment on above: Performed By: #### L [id number] ####[facility] ([facility])[address] [place] [address] MCH (RBC) [Entitic mass] 30.0 pg Normal 27.0-33.0 [facility] Comment on above: Performed By: #### L [id number] ####[facility] ([facility])[address] [place] [address] MCV (RBC) [Entitic vol] 92.9 fL Normal 82.0-98.0 [facility] Comment on above: Performed By: #### L [id number] ####[facility] ([facility])[address] [place] [address] PLATELETS (10*3/UL) IN BLOOD AUTOMATED COUNT 280 10*3/uL Normal 150-400 [facility] Comment on above: Performed By: #### L [id number] ####[facility] ([facility])[address] [place] [address] RBC (Bld) [#/Vol] 3.37 10*6/uL Low 3.80-5.00 [facility] Comment on above: Performed By: #### L [id number] ####[facility] ([facility])[address] [place] [address] WBC (Bld) [#/Vol] 7.00 10*3/uL Normal 4.00-10.60 [facility] Comment on above: Performed By: #### L [id number] ####[facility] ([facility])[address] [place] [address] MAGNESIUMon 04-28-2024 Magnesium [Mass/Vol] 2.2 mg/dL Normal 1.9-2.7 [facility] Comment on above: Performed By: #### L [id number] ####[facility] ([facility])[address] [place] [address] NURSNOTEon 04-28-2024 NURSNOTE 0707: Patients glucose found to be 59. Pt declining glucose tabs, instead ate richie crackers and apple juice. Pt also turned off her insulin pump temporarily. 0830: Pt Glucose recheck is 157. Normal [facility] PHOSPHORUSon 04-28-2024 Magnesium [Mass/Vol] 2.1 mg/dL Low 2.5-5.0 [facility] Comment on above: Performed By: #### L [id number] ####[facility] ([facility])[address] [place] [address] POCT GLUCOSE METER UNSOLICIT ED RESULTSon 04-28-2024 Glucose [Mass/Vol] 206 mg/dL High 70-[address] [facility] Comment on above: Order Comment: Waive d Testing in the ED is performed under the ED CLIA certificate #[id number]. Result Comment: [email or web address] Performed By: #### L [id number] ####[facility] ([facility])[address] [place] [address] Glucose [Mass/Vol] 207 mg/dL High 70-[address] [facility] Comment on above: Order Comment: Waive d Testing in the ED is performed under the ED CLIA certificate #[id number]. Result Comment: epoo [email or web address] Performed By: #### L [id number] ####[facility] ([facility])[address] [place] [address] Glucose [Mass/Vol] 184 mg/dL High 70-[address] [facility] Comment on above: Order Comment: Waive d Testing in the ED is performed under the ED CLIA certificate #[id number]. Result Comment: epoo [email or web address] Performed By: #### L [id number] ####[facility] ([facility])[address] [place] [address] Glucose [Mass/Vol] 157 mg/dL High 70-[address] [facility] Comment on above: Order Comment: Waive d Testing in the ED is performed under the ED CLIA certificate #[id number]. Result Comment: epoo [email or web address] Performed By: #### L [id number] ####[facility] ([facility])[address] [place] [address] Glucose [Mass/Vol] 59 mg/dL Low 70-[address] [facility] Comment on above: Order Comment: Waive d Testing in the ED is performed under the ED CLIA certificate #[id number]. Result Comment: epoo [email or web address] Performed By: #### L [id number] ####[facility] ([facility])[address] [place] [address] 30on 04-27-[address] [facility] BASIC METABOLIC PANELon 04-06 Anion gap [Moles/Vol] 10 mmol/L Normal 7-20 [facility] Comment on above: Performed By: #### L [id number] ####[facility] ([facility])[address] [place] [address] Calcium [Mass/Vol] 7.6 mg/dL Low 8.6-10.[address] [facility] Comment on above: Performed By: #### L [id number] ####[facility] ([facility])[address] [place] [address] Chloride [Moles/Vol] 100 mmol/L Normal 98-107 [facility] Comment on above: Performed By: #### L [id number] ####[facility] ([facility])[address] [place] [address] CO2 [Moles/Vol] 32 mmol/L High 21-31 [facility] Comment on above: Performed By: #### L [id number] ####[facility] ([facility])[address] [place] [address] Creatinine [Mass/Vol] 0.81 mg/dL Normal 0.60-1.20 [facility] Comment on above: Performed By: #### L [id number] ####[facility] ([facility])[address] [place] [address] GLOMERULAR FILTRATION RATE ML/MIN/1.73 SQ M.PREDICTED 81.0 mL/min/1.73m*2 Normal >60.0 [facility] Comment on above: Result Comment: [facility]???s estimated glomerular filtration rate (eGFR) will [...] of individuals. Performed By: #### L [id number] ####[facility] ([facility])[address] [place] [address] Glucose [Mass/Vol] 111 mg/dL High 70-[address] [facility] Comment on above: Performed By: #### L [id number] ####[facility] ([facility])[address] [place] [address] Potassium [Moles/Vol] 3.6 mmol/L Normal 3.5-5.1 [facility] Comment on above: Performed By: #### L [id number] ####[facility] ([facility])[address] [place] [address] Sodium [Moles/Vol] 138 mmol/L Normal 136-[address] [facility] Comment on above: Performed By: #### L [id number] ####[facility] ([facility])[address] [address] Urea nitrogen [Mass/Vol] 19 mg/dL Normal 7-25 [facility] Comment on above: Performed By: #### L [id number] ####[facility] ([facility])[address] [address] UREA NITROGEN/CREATININE (MASS RATIO) IN SER/PLAS 23.[address] [facility] Comment on above: Performed By: #### L [id number] ####[facility] ([facility])[address] [address] CBCon 04-27-2024 Erythrocyte distribution width (RBC) [Ratio] 14.2 % Normal 11.5-15.0 [facility] Comment on above: Performed By: #### L [id number] ####[facility] ([facility])[address] [address] ERYTHROCYTE MEAN CORPUSCULAR HEMOGLOBIN CONCENTRATION (G/DL) BY AUTOMATED 32.0 g/dL Normal 32.0-35.0 [facility] Comment on above: Performed By: #### L [id number] ####[facility] ([facility])[address] [address] Hematocrit (Bld) [Volume fraction] 29.7 % Low 36.0-48.0 [facility] Comment on above: Performed By: #### L [id number] ####[facility] ([facility])[address] [address] Hemoglobin (Bld) [Mass/Vol] 9.5 g/dL Low 12.0-15.0 [facility] Comment on above: Performed By: #### L [id number] ####[facility] ([facility])[address] [address] MCH (RBC) [Entitic mass] 30.0 pg Normal 27.0-33.0 [facility] Comment on above: Performed By: #### L [id number] ####[facility] ([facility])[address] [address] MCV (RBC) [Entitic vol] 93.7 fL Normal 82.0-98.0 [facility] Comment on above: Performed By: #### L [id number] ####[facility] ([facility])[address] [place] [address] PLATELETS (10*3/UL) IN BLOOD AUTOMATED COUNT 280 10*3/uL Normal 150-400 [facility] Comment on above: Performed By: #### L [id number] ####[facility] ([facility])[address] [place] [address] RBC (Bld) [#/Vol] 3.17 10*6/uL Low 3.80-5.00 [facility] Comment on above: Performed By: #### L [id number] ####[facility] ([facility])[address] [place] [address] WBC (Bld) [#/Vol] 7.40 10*3/uL Normal 4.00-10.60 [facility] Comment on above: Performed By: #### L [id number] ####[facility] ([facility])[address] [place] [address] CK TOTAL AND CKMBon 04-27-20 24 CREATINE KINASE (U/L) IN SER/PLAS 99.0 U/L Normal 30.0-223.0 [facility] Comment on above: Performed By: #### L [id number] ####[facility] ([facility])[address] [place] [address] CREATINE KINASE MB/CREATINE KINASE TOTAL BY CALCULATION 1.5 Normal 0.0-1.9 [facility] Comment on above: Performed By: #### L [id number] ####[facility] ([facility])[address] [place] [address] CREATINE KINASE-MB (NG/ML) IN SER/PLAS 1.5 ng/mL Normal 0.0-5.0 [facility] Comment on above: Performed By: #### L [id number] ####[facility] ([facility])[address] [place] [address] CONSULTon 04-27-[address] [facility] CONSULT Normal [facility] MAGNESIUMon 04-27-2024 Magnesium [Mass/Vol] 1.7 mg/dL Low 1.9-2.7 [facility] Comment on above: Performed By: #### L [id number] ####[facility] ([facility])[address] [place] [address] NURSNOTEon 04-27-[address] [facility] PHOSPHORUSon 04-27-2024 Magnesium [Mass/Vol] 3.4 mg/dL Normal 2.5-5.0 [facility] Comment on above: Performed By: #### L [id number] ####[facility] ([employer])[address] [place] [address] POCT GLUCOSE METER UNSOLICIT ED RESULTSon 04-27-2024 Glucose [Mass/Vol] 174 mg/dL High 70-[address] [facility] Comment on above: Order Comment: Waive d Testing in the ED is performed under the ED CLIA certificate #[id number]. Result Comment: [email or web address] Performed By: #### L [id number] ####[facility] ([facility])[address] [place] [address] Glucose [Mass/Vol] 166 mg/dL High 70-[address] [facility] Comment on above: Order Comment: Waive d Testing in the ED is performed under the ED CLIA certificate #[id number]. Result Comment: elac umsky Performed By: #### L [id number] ####[facility] ([employer])[address] [place] [address] Glucose [Mass/Vol] 215 mg/dL High 70-[address] [facility] Comment on above: Order Comment: Waive d Testing in the ED is performed under the ED CLIA certificate #[id number]. Result Comment: [email or web address] Performed By: #### L [id number] ####[facility] ([employer])[address] [place] [address] Glucose [Mass/Vol] 222 mg/dL High 70-[address] [facility] Comment on above: Order Comment: Waive d Testing in the ED is performed under the ED CLIA certificate #[id number]. Result Comment: elac umsky Performed By: #### L [id number] ####[facility] ([facility])[address] [place] [address] Glucose [Mass/Vol] 251 mg/dL High 70-[address] [facility] Comment on above: Order Comment: Waive d Testing in the ED is performed under the ED CLIA certificate #[id number]. Result Comment: elac umsky Performed By: #### L [id number] ####[facility] ([facility])[address] [place] [address] Glucose [Mass/Vol] 142 mg/dL High 70-[address] [facility] Comment on above: Order Comment: Waive d Testing in the ED is performed under the ED CLIA certificate #[id number]. Result Comment: [email or web address] Performed By: #### L [id number] ####[facility] ([facility])[address] [place] [address] Glucose [Mass/Vol] 66 mg/dL Low 70-[address] [facility] Comment on above: Order Comment: Waive d Testing in the ED is performed under the ED CLIA certificate #[id number]. Result Comment: [email or web address] Performed By: #### L [id number] ####[facility] ([facility])[address] [place] [address] T4, FREEon 04-27-2024 THYROXINE (T4) FREE (NG/DL) IN SER/PLAS 1.00 ng/dL Normal 0.71-1.85 [facility] Comment on above: Performed By: #### L [id number] ####[facility] ([facility])[address] [place] [address] TSHon 04-27-2024 THYROTROPIN (MIU/L) IN SER/PLAS BY DETECTION LIMIT <= 0.05 MIU/L 6.69 mIU/L High 0.34-5.60 [facility] Comment on above: Performed By: #### L [id number] ####[facility] ([facility])[address] [place] [address] 30on 04-26-[address] [facility] BASIC METABOLIC PANELon 04-06 Anion gap [Moles/Vol] 12 mmol/L Normal 7-20 [facility] Comment on above: Performed By: #### L [id number] ####[facility] ([facility])[address] [place] [address] Calcium [Mass/Vol] 8.0 mg/dL Low 8.6-10.[address] [facility] Comment on above: Performed By: #### L [id number] ####[facility] ([facility])[address] [place] [address] Chloride [Moles/Vol] 98 mmol/L Normal 98-107 [facility] Comment on above: Performed By: #### L [id number] ####[facility] ([facility])[address] [place] [address] CO2 [Moles/Vol] 28 mmol/L Normal 21-31 [facility] Comment on above: Performed By: #### L [id number] ####[facility] ([facility])[address] [place] [address] Creatinine [Mass/Vol] 0.78 mg/dL Normal 0.60-1.20 [facility] Comment on above: Performed By: #### L [id number] ####[facility] ([facility])[address] [place] [address] GLOMERULAR FILTRATION RATE ML/MIN/1.73 SQ M.PREDICTED 84.8 mL/min/1.73m*2 Normal >60.0 [facility] Comment on above: Result Comment: [facility]???s estimated glomerular filtration rate (eGFR) will [...] of individuals. Performed By: #### L [id number] ####[facility] ([facility])[address] [place] [address] Glucose [Mass/Vol] 456 mg/dL Critically high 70-100 [facility] Comment on above: Performed By: #### L [id number] ####[facility] ([facility])[address] [place] [address] Potassium [Moles/Vol] 4.8 mmol/L Normal 3.5-5.1 [facility] Comment on above: Performed By: #### L [id number] ####[facility] ([facility])[address] [place] [address] Sodium [Moles/Vol] 133 mmol/L Low 136-[address] [facility] Comment on above: Performed By: #### L [id number] ####[facility] ([facility])[address] [place] [address] Urea nitrogen [Mass/Vol] 22 mg/dL Normal 7-25 [facility] Comment on above: Performed By: #### L [id number] ####[facility] ([facility])[address] [place] [address] UREA NITROGEN/CREATININE (MASS RATIO) IN SER/PLAS 28.[address] [facility] Comment on above: Performed By: #### L [id number] ####[facility] ([facility])[address] [place] [address] BLOOD CULTUREon 04-26-2024 Bacteria identified Cx Nom (Bld) No growth at 5 days Normal [facility] Comment on above: Order Comment: From a different site than #1. Performed By: #### L [id number] ####[facility] ([facility])[address] [place] [address] Bacteria identified Cx Nom (Bld) No growth at 5 days Normal [facility] Comment on above: Performed By: #### L [id number] ####[facility] ([facility])[address] [address] CBCon 04-26-2024 Erythrocyte distribution width (RBC) [Ratio] 14.6 % Normal 11.5-15.0 [facility] Comment on above: Performed By: #### L [id number] ####[facility] ([facility])[address] [address] ERYTHROCYTE MEAN CORPUSCULAR HEMOGLOBIN CONCENTRATION (G/DL) BY AUTOMATED 31.0 g/dL Low 32.0-35.0 [facility] Comment on above: Performed By: #### L [id number] ####[facility] ([facility])[address] [place] [address] Hematocrit (Bld) [Volume fraction] 33.2 % Low 36.0-48.0 [facility] Comment on above: Performed By: #### L [id number] ####[facility] ([facility])[address] [place] [address] Hemoglobin (Bld) [Mass/Vol] 10.3 g/dL Low 12.0-15.0 [facility] Comment on above: Performed By: #### L [id number] ####[facility] ([facility])[address] [place] [address] MCH (RBC) [Entitic mass] 30.1 pg Normal 27.0-33.0 [facility] Comment on above: Performed By: #### L [id number] ####[facility] ([facility])[address] [place] [address] MCV (RBC) [Entitic vol] 97.1 fL Normal 82.0-98.0 [facility] Comment on above: Performed By: #### L [id number] ####[facility] ([facility])[address] [place] [address] PLATELETS (10*3/UL) IN BLOOD AUTOMATED COUNT 233 10*3/uL Normal 150-400 [facility] Comment on above: Performed By: #### L [id number] ####[facility] ([facility])[address] [place] [address] RBC (Bld) [#/Vol] 3.42 10*6/uL Low 3.80-5.00 [facility] Comment on above: Performed By: #### L [id number] ####[facility] ([facility])[address] [place] [address] WBC (Bld) [#/Vol] 7.37 10*3/uL Normal 4.00-10.60 [facility] Comment on above: Performed By: #### L [id number] ####[facility] ([facility])[address] [place] [address] CBC WITH AUTO DIFFERENTIALon 04-26-2024 Basophils (Bld) [#/Vol] 0.06 10*3/uL Normal 0.00-0.20 [facility] Comment on above: Performed By: #### L [id number] ####[facility] ([facility])[address] [place] [address] Basophils/100 WBC (Bld) 0.7 % Normal 0.0-1.0 [facility] Comment on above: Performed By: #### L [id number] ####[facility] ([facility])[address] [place] [address] Eosinophils (Bld) [#/Vol] 0.25 10*3/uL Normal 0.00-0.50 [facility] Comment on above: Performed By: #### L [id number] ####[facility] ([facility])[address] [place] [address] Eosinophils/100 WBC (Bld) 3.1 % Normal 0.0-6.0 [facility] Comment on above: Performed By: #### L [id number] ####[facility] ([facility])[address] [place] [address] Erythrocyte distribution width (RBC) [Ratio] 14.4 % Normal 11.5-15.0 [facility] Comment on above: Performed By: #### L [id number] ####[facility] ([facility])[address] [place] [address] ERYTHROCYTE MEAN CORPUSCULAR HEMOGLOBIN CONCENTRATION (G/DL) BY AUTOMATED 32.2 g/dL Normal 32.0-35.0 [facility] Comment on above: Performed By: #### L [id number] ####[facility] ([facility])[address] [place] [address] Hematocrit (Bld) [Volume fraction] 32.6 % Low 36.0-48.0 [facility] Comment on above: Performed By: #### L [id number] ####[facility] ([facility])[address] [place] [address] Hemoglobin (Bld) [Mass/Vol] 10.5 g/dL Low 12.0-15.0 [facility] Comment on above: Performed By: #### L [id number] ####[facility] ([facility])[address] [place] [address] Immature granulocytes (Bld) [#/Vol] 0.05 10*3/uL Normal 0.00-0.20 [facility] Comment on above: Performed By: #### L [id number] ####[facility] ([facility])[address] [place] [address] Immature granulocytes/100 WBC (Bld) 0.6 % Normal 0.0-1.0 [facility] Comment on above: Performed By: #### L [id number] ####[facility] ([facility])[address] [place] [address] Lymphocytes (Bld) [#/Vol] 0.90 10*3/uL Low 1.20-4.00 [facility] Comment on above: Performed By: #### L [id number] ####[facility] ([facility])[address] [place] [address] Lymphocytes/100 WBC (Bld) 11.0 % Low 20.0-45.0 [facility] Comment on above: Performed By: #### L [id number] ####[facility] ([facility])[address] [place] [address] MCH (RBC) [Entitic mass] 30.0 pg Normal 27.0-33.0 [facility] Comment on above: Performed By: #### L [id number] ####[facility] ([facility])[address] [place] [address] MCV (RBC) [Entitic vol] 93.1 fL Normal 82.0-98.0 [facility] Comment on above: Performed By: #### L [id number] ####[facility] ([facility])[address] [place] [address] Monocytes (Bld) [#/Vol] 0.61 10*3/uL Normal 0.10-1.00 [facility] Comment on above: Performed By: #### L [id number] ####[facility] ([facility])[address] [place] [address] Monocytes/100 WBC (Bld) 7.4 % Normal 5.0-12.0 [facility] Comment on above: Performed By: #### L [id number] ####[facility] ([facility])[address] [place] [address] Neutrophils (Bld) [#/Vol] 6.32 10*3/uL Normal 1.60-7.60 [facility] Comment on above: Performed By: #### L [id number] ####[facility] ([facility])[address] [place] [address] Neutrophils/100 WBC (Bld) 77.2 % High 40.0-72.0 [facility] Comment on above: Performed By: #### L [id number] ####[facility] ([facility])[address] [place] [address] NRBC (PER 100 WBCS) BY AUTOMATED COUNT 0.0 % Normal 0 [facility] Comment on above: Performed By: #### L [id number] ####[facility] ([facility])[address] [place] [address] PLATELETS (10*3/UL) IN BLOOD AUTOMATED COUNT 290 10*3/uL Normal 150-400 [facility] Comment on above: Performed By: #### L [id number] ####[facility] ([facility])[address] [place] [address] RBC (Bld) [#/Vol] 3.50 10*6/uL Low 3.80-5.00 [facility] Comment on above: Performed By: #### L [id number] ####[facility] ([facility])[address] [place] [address] WBC (Bld) [#/Vol] 8.19 10*3/uL Normal 4.00-10.60 [facility] Comment on above: Performed By: #### L [id number] ####[facility] ([facility])[address] [place] [address] LACTIC ACID, PLASMAon 2023 LACTATE (MMOL/L) IN SER/PLAS 1.7 mmol/L Normal 0.5-2.2 [facility] Comment on above: Performed By: #### L [id number] ####[facility] ([facility])[address] [place] [address] MAGNESIUMon 04-26-2024 Magnesium [Mass/Vol] 2.1 mg/dL Normal 1.9-2.7 [facility] Comment on above: Performed By: #### L [id number] ####[facility] ([facility])[address] [place] [address] MRSA/MSSA DNA NASALon 2023 MRSA DNA Negative Normal Negative [facility] Comment on above: Order Comment: Testi [...] preclude nasal colonization. Performed By: #### L [id number] ####[facility] ([facility])[address] [address] MSSA DNA Negative Normal Negative [facility] Comment on above: Order Comment: Testi [...] preclude nasal colonization. Performed By: #### L [id number] ####[facility] ([facility])[address] [place] [address] PHOSPHORUSon 04-26-2024 Magnesium [Mass/Vol] 2.4 mg/dL Low 2.5-5.0 [facility] Comment on above: Performed By: #### L [id number] ####[facility] ([facility])[address] [place] [address] POCT GLUCOSE METER UNSOLICIT ED RESULTSon 04-26-2024 Glucose [Mass/Vol] 127 mg/dL High 70-[address] [facility] Comment on above: Order Comment: Waive d Testing in the ED is performed under the ED CLIA certificate #[id number]. Result Comment: [email or web address] Performed By: #### L [id number] ####[facility] ([facility])[address] [place] [address] Glucose [Mass/Vol] 221 mg/dL High 70-105 [facility] Comment on above: Order Comment: Waive d Testing in the ED is performed under the ED CLIA certificate #[id number]. Result Comment: owit tko Performed By: #### L [id number] ####[facility] ([facility])[address] [place] [address] Glucose [Mass/Vol] 438 mg/dL High 70-105 [facility] Comment on above: Order Comment: Waive d Testing in the ED is performed under the ED CLIA certificate #[id number]. Result Comment: owit tko Performed By: #### L [id number] ####[facility] ([facility])[address] [place] [address] Glucose [Mass/Vol] 474 mg/dL High 70-[address] [facility] Comment on above: Order Comment: Waive d Testing in the ED is performed under the ED CLIA certificate #[id number]. Result Comment: owit tko Performed By: #### L [id number] ####[facility] ([facility])[address] [place] [address] Glucose [Mass/Vol] 480 mg/dL High 70-[address] [facility] Comment on above: Order Comment: Waive d Testing in the ED is performed under the ED CLIA certificate #[id number]. Result Comment: [email or web address] Performed By: #### L [id number] ####[facility] ([employer])[address] [place] [address] Glucose [Mass/Vol] 443 mg/dL High 70-[address] [facility] Comment on above: Order Comment: Waive d Testing in the ED is performed under the ED CLIA certificate #[id number]. Result Comment: owit tko Performed By: #### L [id number] ####[facility] ([facility])[address] [place] [address] 30on 04-25-[address] [facility] [address] [facility] BASIC METABOLIC PANELon - Anion gap [Moles/Vol] 9 mmol/L Normal 7-20 [facility] Comment on above: Performed By: #### L [id number] ####[facility] ([facility])[address] [place] [address] Calcium [Mass/Vol] 8.7 mg/dL Normal 8.6-10.[address] [facility] Comment on above: Performed By: #### L [id number] ####[facility] ([facility])[address] [place] [address] Chloride [Moles/Vol] 102 mmol/L Normal 98-107 [facility] Comment on above: Performed By: #### L [id number] ####[facility] ([facility])[address] [place] [address] CO2 [Moles/Vol] 29 mmol/L Normal 21-31 [facility] Comment on above: Performed By: #### L [id number] ####[facility] ([facility])[address] [place] [address] Creatinine [Mass/Vol] 0.63 mg/dL Normal 0.60-1.20 [facility] Comment on above: Performed By: #### L [id number] ####[facility] ([facility])[address] [place] [address] GLOMERULAR FILTRATION RATE ML/MIN/1.73 SQ M.PREDICTED 99.0 mL/min/1.73m*2 Normal >60.0 [facility] Comment on above: Result Comment: [facility]???s estimated glomerular filtration rate (eGFR) will [...] of individuals. Performed By: #### L [id number] ####[facility] ([facility])[address] [place] [address] Glucose [Mass/Vol] 175 mg/dL High 70-[address] [facility] Comment on above: Performed By: #### L [id number] ####[facility] ([facility]ER)[address] [place] [address] Potassium [Moles/Vol] 3.9 mmol/L Normal 3.5-5.1 [facility] Comment on above: Performed By: #### L [id number] ####[facility] ([facility])[address] [place] [address] Sodium [Moles/Vol] 136 mmol/L Normal 136-[address] [facility] Comment on above: Performed By: #### L [id number] ####[facility] ([facility])[address] [place] [address] Urea nitrogen [Mass/Vol] 15 mg/dL Normal 7-25 [facility] Comment on above: Performed By: #### L [id number] ####[facility] ([facility])[address] [place] [address] UREA NITROGEN/CREATININE (MASS RATIO) IN SER/PLAS 23.[address] [facility] Comment on above: Performed By: #### L [id number] ####[facility] ([facility])[address] [place] [address] CALCIUM, IONIZEDon CALCIUM IONIZED (MMOL/L) IN BLOOD 1.23 mmol/L Normal 1.15-1.33 [facility] Comment on above: Performed By: #### L [id number] ####[facility] [id number] [place] [address] [place] CBCon 04-25-2024 Erythrocyte distribution width (RBC) [Ratio] 14.5 % Normal 11.5-15.0 [facility] Comment on above: Performed By: #### L [id number] ####[facility] ([facility])[address] [place] [address] ERYTHROCYTE MEAN CORPUSCULAR HEMOGLOBIN CONCENTRATION (G/DL) BY AUTOMATED 33.5 g/dL Normal 32.0-35.0 [facility] Comment on above: Performed By: #### L [id number] ####[facility] ([facility])[address] [place] [address] Hematocrit (Bld) [Volume fraction] 31.0 % Low 36.0-48.0 [facility] Comment on above: Performed By: #### L [id number] ####[facility] ([facility])[address] [place] [address] Hemoglobin (Bld) [Mass/Vol] 10.4 g/dL Low 12.0-15.0 [facility] Comment on above: Performed By: #### L [id number] ####[facility] ([facility])[address] [place] [address] MCH (RBC) [Entitic mass] 30.1 pg Normal 27.0-33.0 [facility] Comment on above: Performed By: #### L [id number] ####[facility] ([facility])[address] [place] [address] MCV (RBC) [Entitic vol] 89.9 fL Normal 82.0-98.0 [facility] [facility] Comment on above: Performed By: #### L [id number] ####[facility] ([facility])[address] [place] [address] PLATELETS (10*3/UL) IN BLOOD AUTOMATED COUNT 256 10*3/uL Normal 150-400 [facility] Comment on above: Performed By: #### L [id number] ####[facility] ([facility])[address] [place] [address] RBC (Bld) [#/Vol] 3.45 10*6/uL Low 3.80-5.00 [facility] Comment on above: Performed By: #### L [id number] ####[facility] ([facility])[address] [place] [address] WBC (Bld) [#/Vol] 9.27 10*3/uL Normal 4.00-10.60 [facility] Comment on above: Performed By: #### L [id number] ####[facility] ([facility])[address] [place] [address] MAGNESIUMon 04-25-2024 Magnesium [Mass/Vol] 1.5 mg/dL Low 1.9-2.7 [facility] Comment on above: Performed By: #### L [id number] ####[facility] ([facility])[address] [place] [address] PHOSPHORUSon 04-25-2024 Magnesium [Mass/Vol] 2.0 mg/dL Low 2.5-5.0 [facility] Comment on above: Performed By: #### L [id number] ####[facility] ([facility])[address] [place] [address] Magnesium [Mass/Vol] 1.6 mg/dL Low 2.5-5.0 [facility] Comment on above: Performed By: #### L [id number] ####[facility] ([facility])[address] [place] [address] POCT GLUCOSE METER UNSOLICIT ED RESULTSon 04-25-2024 Glucose [Mass/Vol] 253 mg/dL High 70-[address] [facility] Comment on above: Order Comment: Waive d Testing in the ED is performed under the ED CLIA certificate #[id number]. Result Comment: [email or web address] Performed By: #### L [id number] ####[facility] ([facility])[address] [place] [address] Glucose [Mass/Vol] 283 mg/dL High 70-[address] [facility] Comment on above: Order Comment: Waive d Testing in the ED is performed under the ED CLIA certificate #[id number]. Result Comment: [email or web address] Performed By: #### L [id number] ####[facility] ([facility])[address] [place] [address] Glucose [Mass/Vol] 379 mg/dL High 70-[address] [facility] Comment on above: Order Comment: Waive d Testing in the ED is performed under the ED CLIA certificate #[id number]. Result Comment: [email or web address] Performed By: #### L [id number] ####[facility] ([facility])[address] [place] [address] Glucose [Mass/Vol] 334 mg/dL High 70-[address] [facility] Comment on above: Order Comment: Waive d Testing in the ED is performed under the ED CLIA certificate #[id number]. Result Comment: elac umsky Performed By: #### L [id number] ####[facility] ([facility])[address] [place] [address] Glucose [Mass/Vol] 197 mg/dL High 70-[address] [facility] Comment on above: Order Comment: Waive d Testing in the ED is performed under the ED CLIA certificate #[id number]. Result Comment: nsch eub Performed By: #### L [id number] ####[facility] ([facility])[address] [place] [address] 30on 04-24-[address] [facility] BASIC METABOLIC PANELon 04-06 Anion gap [Moles/Vol] 10 mmol/L Normal 7-20 [facility] Comment on above: Performed By: #### L [id number] ####[facility] ([facility])[address] [place] [address] Calcium [Mass/Vol] 8.1 mg/dL Low 8.6-10.[address] [facility] Comment on above: Performed By: #### L [id number] ####[facility] ([facility])[address] [place] [address] Chloride [Moles/Vol] 104 mmol/L Normal 98-107 [facility] Comment on above: Performed By: #### L [id number] ####[facility] ([facility])[address] [place] [address] CO2 [Moles/Vol] 27 mmol/L Normal 21-31 [facility] Comment on above: Performed By: #### L [id number] ####[facility] ([facility])[address] [place] [address] Creatinine [Mass/Vol] 0.74 mg/dL Normal 0.60-1.20 [facility] Comment on above: Performed By: #### L [id number] ####[facility] ([facility])[address] [place] [address] GLOMERULAR FILTRATION RATE ML/MIN/1.73 SQ M.PREDICTED 90.3 mL/min/1.73m*2 Normal >60.0 [facility] Comment on above: Result Comment: [facility]???s estimated glomerular filtration rate (eGFR) will [...] of individuals. Performed By: #### L [id number] ####[facility] ([facility])[address] [place] [address] Glucose [Mass/Vol] 189 mg/dL High 70-[address] [facility] Comment on above: Performed By: #### L [id number] ####[facility] ([facility])[address] [place] [address] Potassium [Moles/Vol] 4.2 mmol/L Normal 3.5-5.1 [facility] Comment on above: Performed By: #### L [id number] ####[facility] ([facility])[address] [place] [address] Sodium [Moles/Vol] 137 mmol/L Normal 136-[address] [facility] Comment on above: Performed By: #### L [id number] ####[facility] ([facility])[address] [place] [address] Urea nitrogen [Mass/Vol] 19 mg/dL Normal 7-25 [facility] Comment on above: Performed By: #### L [id number] ####[facility] ([facility])[address] [place] [address] UREA NITROGEN/CREATININE (MASS RATIO) IN SER/PLAS 25.[address] [facility] Comment on above: Performed By: #### L [id number] ####[facility] ([facility])[address] [place] [address] CALCIUM, IONIZEDon CALCIUM IONIZED (MMOL/L) IN BLOOD 1.01 mmol/L Low 1.15-1.33 [facility] Comment on above: Performed By: #### L [id number] ####[facility] [id number] [place] [address] [place] CBCon 04-24-2024 Erythrocyte distribution width (RBC) [Ratio] 14.3 % Normal 11.5-15.0 [facility] Comment on above: Performed By: #### L [id number] ####[facility] ([facility])[address] [place] [address] ERYTHROCYTE MEAN CORPUSCULAR HEMOGLOBIN CONCENTRATION (G/DL) BY AUTOMATED 32.3 g/dL Normal 32.0-35.0 [facility] Comment on above: Performed By: #### L [id number] ####[facility] ([facility])[address] [place] [address] Hematocrit (Bld) [Volume fraction] 31.6 % Low 36.0-48.0 [facility] Comment on above: Performed By: #### L [id number] ####[facility] ([facility])[address] [place] [address] Hemoglobin (Bld) [Mass/Vol] 10.2 g/dL Low 12.0-15.0 [facility] Comment on above: Performed By: #### L [id number] ####[facility] ([facility])[address] [place] [address] MCH (RBC) [Entitic mass] 30.3 pg Normal 27.0-33.0 [facility] Comment on above: Performed By: #### L [id number] ####[facility] ([facility])[address] [place] [address] MCV (RBC) [Entitic vol] 93.8 fL Normal 82.0-98.0 [facility] Comment on above: Performed By: #### L [id number] ####[facility] ([facility])[address] [place] [address] PLATELETS (10*3/UL) IN BLOOD AUTOMATED COUNT 242 10*3/uL Normal 150-400 [facility] Comment on above: Performed By: #### L [id number] ####[facility] ([facility])[address] [place] [address] RBC (Bld) [#/Vol] 3.37 10*6/uL Low 3.80-5.00 [facility] Comment on above: Performed By: #### L [id number] ####[facility] ([facility])[address] [place] [address] WBC (Bld) [#/Vol] 8.93 10*3/uL Normal 4.00-10.60 [facility] Comment on above: Performed By: #### L [id number] ####[facility] ([facility])[address] [place] [address] MAGNESIUMon 04-24-2024 Magnesium [Mass/Vol] 1.7 mg/dL Low 1.9-2.7 [facility] Comment on above: Performed By: #### L [id number] ####[facility] ([facility])[address] [place] [address] POCT GLUCOSE METER UNSOLICIT ED RESULTSon 04-24-2024 Glucose [Mass/Vol] 269 mg/dL High 70-[address] [facility] Comment on above: Order Comment: Waive d Testing in the ED is performed under the ED CLIA certificate #[id number]. Result Comment: [email or web address] Performed By: #### L [id number] ####[facility] ([facility])[address] [place] [address] Glucose [Mass/Vol] 361 mg/dL High 70-[address] [facility] Comment on above: Order Comment: Waive d Testing in the ED is performed under the ED CLIA certificate #[id number]. Result Comment: elac umsky Performed By: #### L [id number] ####[facility] ([facility])[address] [place] [address] Glucose [Mass/Vol] 185 mg/dL High 70-[address] [facility] Comment on above: Order Comment: Waive d Testing in the ED is performed under the ED CLIA certificate #[id number]. Result Comment: elac umsky Performed By: #### L [id number] ####[facility] ([facility])[address] [place] [address] Glucose [Mass/Vol] 209 mg/dL High 70-[address] [facility] Comment on above: Order Comment: Waive d Testing in the ED is performed under the ED CLIA certificate #[id number]. Result Comment: elac umsky Performed By: #### L [id number] ####[facility] ([facility])[address] [place] [address] Glucose [Mass/Vol] 199 mg/dL High 70-[address] [facility] Comment on above: Order Comment: Waive d Testing in the ED is performed under the ED CLIA certificate #[id number]. Result Comment: [email or web address] gun Performed By: #### L [id number] ####[facility] ([facility])[address] [place] [address] Glucose [Mass/Vol] 304 mg/dL High 70-[address] [facility] Comment on above: Order Comment: Waive d Testing in the ED is performed under the ED CLIA certificate #[id number]. Result Comment: [facility] Performed By: #### L [id number] ####[facility] ([facility])[address] [place] [address] BASIC METABOLIC PANELon 04-05 Anion gap [Moles/Vol] 9 mmol/L Normal 7-20 [facility] Comment on above: Performed By: #### L [id number] ####[facility] ([facility])[address] [place] [address] Calcium [Mass/Vol] 8.4 mg/dL Low 8.6-10.[address] [facility] Comment on above: Performed By: #### L [id number] ####[facility] ([facility])[address] [place] [address] Chloride [Moles/Vol] 106 mmol/L Normal 98-107 [facility] Comment on above: Performed By: #### L [id number] ####[facility] ([facility])[address] [place] [address] CO2 [Moles/Vol] 25 mmol/L Normal 21-31 [facility] Comment on above: Performed By: #### L [id number] ####[facility] ([facility])[address] [place] [address] Creatinine [Mass/Vol] 0.78 mg/dL Normal 0.60-1.20 [facility] Comment on above: Performed By: #### L [id number] ####[facility] ([facility])[address] [place] [address] GLOMERULAR FILTRATION RATE ML/MIN/1.73 SQ M.PREDICTED 84.8 mL/min/1.73m*2 Normal >60.0 [facility] Comment on above: Result Comment: [facility]???s estimated glomerular filtration rate (eGFR) will [...] of individuals. Performed By: #### L [id number] ####[facility] ([facility])[address] [place] [address] Glucose [Mass/Vol] 107 mg/dL High 70-[address] [facility] Comment on above: Performed By: #### L [id number] ####[facility] ([facility])[address] [place] [address] Potassium [Moles/Vol] 3.7 mmol/L Normal 3.5-5.1 [facility] Comment on above: Performed By: #### L [id number] ####[facility] ([facility])[address] [place] [address] Sodium [Moles/Vol] 136 mmol/L Normal 136-[address] [facility] Comment on above: Performed By: #### L [id number] ####[facility] ([facility])[address] [place] [address] Urea nitrogen [Mass/Vol] 21 mg/dL Normal 7-25 [facility] Comment on above: Performed By: #### L [id number] ####[facility] ([facility])[address] [place] [address] UREA NITROGEN/CREATININE (MASS RATIO) IN SER/PLAS 26.[address] [facility] Comment on above: Performed By: #### L [id number] ####[facility] ([facility])[address] [place] [address] Anion gap [Moles/Vol] 10 mmol/L Normal 7-20 [facility] Comment on above: Performed By: #### L [id number] ####[facility] ([facility])[address] [place] [address] Calcium [Mass/Vol] 8.7 mg/dL Normal 8.6-10.[address] [facility] Comment on above: Performed By: #### L [id number] ####[facility] ([facility])[address] [place] [address] Chloride [Moles/Vol] 106 mmol/L Normal 98-107 [facility] Comment on above: Performed By: #### L [id number] ####[facility] ([facility])[address] [place] [address] CO2 [Moles/Vol] 26 mmol/L Normal 21-31 [facility] Comment on above: Performed By: #### L [id number] ####[facility] ([facility])[address] [place] [address] Creatinine [Mass/Vol] 0.87 mg/dL Normal 0.60-1.20 [facility] Comment on above: Performed By: #### L [id number] ####[facility] ([facility])[address] [place] [address] GLOMERULAR FILTRATION RATE ML/MIN/1.73 SQ M.PREDICTED 74.4 mL/min/1.73m*2 Normal >60.0 [facility] Comment on above: Result Comment: [facility]???s estimated glomerular filtration rate (eGFR) will [...] of individuals. Performed By: #### L [id number] ####[facility] ([facility])[address] [place] [address] Glucose [Mass/Vol] 175 mg/dL High 70-[address] [facility] Comment on above: Performed By: #### L [id number] ####[facility] ([facility])[address] [place] [address] Potassium [Moles/Vol] 4.4 mmol/L Normal 3.5-5.1 [facility] Comment on above: Performed By: #### L [id number] ####[facility] ([facility])[address] [place] [address] Sodium [Moles/Vol] 138 mmol/L Normal 136-[address] [facility] Comment on above: Performed By: #### L [id number] ####[facility] ([facility])[address] [place] [address] Urea nitrogen [Mass/Vol] 24 mg/dL Normal 7-25 [facility] Comment on above: Performed By: #### L [id number] ####[facility] ([facility])[address] [place] [address] UREA NITROGEN/CREATININE (MASS RATIO) IN SER/PLAS 27.[address] [facility] Comment on above: Performed By: #### L [id number] ####[facility] ([facility])[address] [place] [address] CBCon 04-23-2024 Erythrocyte distribution width (RBC) [Ratio] 14.0 % Normal 11.5-15.0 [facility] Comment on above: Performed By: #### L [id number] ####[facility] ([facility])[address] [place] [address] ERYTHROCYTE MEAN CORPUSCULAR HEMOGLOBIN CONCENTRATION (G/DL) BY AUTOMATED 29.8 g/dL Low 32.0-35.0 [facility] Comment on above: Performed By: #### L [id number] ####[facility] ([facility])[address] [place] [address] Hematocrit (Bld) [Volume fraction] 22.8 % Low 36.0-48.0 [facility] Comment on above: Performed By: #### L [id number] ####[facility] ([facility])[address] [place] [address] Hemoglobin (Bld) [Mass/Vol] 6.8 g/dL Low 12.0-15.0 [facility] Comment on above: Performed By: #### L [id number] ####[facility] ([facility])[address] [place] [address] MCH (RBC) [Entitic mass] 30.0 pg Normal 27.0-33.0 [facility] Comment on above: Performed By: #### L [id number] ####[facility] ([facility])[address] [place] [address] MCV (RBC) [Entitic vol] 100.4 fL High 82.0-98.0 [facility] Comment on above: Performed By: #### L [id number] ####[facility] ([facility])[address] [place] [address] PLATELETS (10*3/UL) IN BLOOD AUTOMATED COUNT 229 10*3/uL Normal 150-400 [facility] Comment on above: Performed By: #### L [id number] ####[facility] ([facility])[address] [address] RBC (Bld) [#/Vol] 2.27 10*6/uL Low 3.80-5.00 [facility] Comment on above: Performed By: #### L [id number] ####[facility] ([facility])[address] [address] WBC (Bld) [#/Vol] 8.76 10*3/uL Normal 4.00-10.60 [facility] Comment on above: Performed By: #### L [id number] ####[facility] ([facility])[address] [place] [address] Erythrocyte distribution width (RBC) [Ratio] 13.8 % Normal 11.5-15.0 [facility] Comment on above: Performed By: #### L [id number] ####[facility] ([facility])[address] [place], [place] [address] ERYTHROCYTE MEAN CORPUSCULAR HEMOGLOBIN CONCENTRATION (G/DL) BY AUTOMATED 32.5 g/dL Normal 32.0-35.0 [facility] Comment on above: Performed By: #### L [id number] ####[facility] ([facility])[address] [place], [place] [address] Hematocrit (Bld) [Volume fraction] 25.2 % Low 36.0-48.0 [facility] Comment on above: Performed By: #### L [id number] ####[facility] ([facility])[address] [place], [place] [address] Hemoglobin (Bld) [Mass/Vol] 8.2 g/dL Low 12.0-15.0 [facility] Comment on above: Performed By: #### L [id number] ####[facility] ([facility])[address] [place] [address] MCH (RBC) [Entitic mass] 30.5 pg Normal 27.0-33.0 [facility] Comment on above: Performed By: #### L [id number] ####[facility] ([facility])[address] [place] [address] MCV (RBC) [Entitic vol] 93.7 fL Normal 82.0-98.0 [facility] Comment on above: Performed By: #### L [id number] ####[facility] ([facility])[address] [place] [address] PLATELETS (10*3/UL) IN BLOOD AUTOMATED COUNT 268 10*3/uL Normal 150-400 [facility] Comment on above: Performed By: #### L [id number] ####[facility] ([facility] [address] RBC (Bld) [#/Vol] 2.69 10*6/uL Low 3.80-5.00 [facility] Comment on above: Performed By: #### L [id number] ####[facility] ([facility])[address] [place] [address] WBC (Bld) [#/Vol] 9.30 10*3/uL Normal 4.00-10.60 [facility] Comment on above: Performed By: #### L [id number] ####[facility] ([facility])[address] [place] [address] MAGNESIUMon 04-23-2024 Magnesium [Mass/Vol] 1.4 mg/dL Low 1.9-2.7 [facility] Comment on above: Performed By: #### L [id number] ####[facility] ([facility])[address] [place] [address] NURSNOTEon 04-23-[address] [facility] PHOSPHORUSon 04-23-2024 Magnesium [Mass/Vol] 3.2 mg/dL Normal 2.5-5.0 [facility] Comment on above: Performed By: #### L [id number] ####[facility] ([facility])[address] [place] [address] POCT GLUCOSE METER UNSOLICIT ED RESULTSon 04-23-2024 Glucose [Mass/Vol] 301 mg/dL High 70-[address] [facility] Comment on above: Order Comment: Waive d Testing in the ED is performed under the ED CLIA certificate #[id number]. Result Comment: nsch eub Performed By: #### L [id number] ####[facility] ([facility])[address] [place] [address] Glucose [Mass/Vol] 138 mg/dL High 70-[address] [facility] Comment on above: Order Comment: Waive d Testing in the ED is performed under the ED CLIA certificate #[id number]. Result Comment: [facility] eub Performed By: #### L [id number] ####[facility] ([facility])[address] [place] [address] Glucose [Mass/Vol] 156 mg/dL High 70-[address] [facility] Comment on above: Order Comment: Waive d Testing in the ED is performed under the ED CLIA certificate #[id number]. Result Comment: [email or web address] Performed By: #### L [id number] ####[facility] ([facility])[address] [place] [address] Glucose [Mass/Vol] 198 mg/dL High 70-[address] [facility] Comment on above: Order Comment: Waive d Testing in the ED is performed under the ED CLIA certificate #[id number]. Result Comment: [email or web address] Performed By: #### L [id number] ####[facility] ([facility])[address] [place] [address] Glucose [Mass/Vol] 252 mg/dL High 70-[address] [facility] Comment on above: Order Comment: Waive d Testing in the ED is performed under the ED CLIA certificate #[id number]. Result Comment: [email or web address] Performed By: #### L [id number] ####[facility] ([facility])[address] [place] [address] Glucose [Mass/Vol] 182 mg/dL High 70-[address] [facility] Comment on above: Order Comment: Waive d Testing in the ED is performed under the ED CLIA certificate #[id number]. Result Comment: [email or web address] Performed By: #### L [id number] ####[facility] ([facility])[address] [place] [address] Glucose [Mass/Vol] 189 mg/dL High 70-[address] [facility] Comment on above: Order Comment: Waive d Testing in the ED is performed under the ED CLIA certificate #[id number]. Result Comment: [email or web address] Performed By: #### L [id number] ####[facility] ([facility])[address] [place] [address] [id number] 04-22-[id number] [facility] ANESon 04-22-[address] [facility] ANES Normal [facility] Anesthesiaon 04-22-2024 Anesthesia [id number] Monica Acosta 1960 F Date Provider Department [place] [facility] No family history on file Normal [facility] BASIC METABOLIC PANELon 04-05 Anion gap [Moles/Vol] 14 mmol/L Normal 7-20 [facility] Comment on above: Performed By: #### L [id number] ####[facility] ([facility])[address] [place] [address] Calcium [Mass/Vol] 8.6 mg/dL Normal 8.6-10.[address] [facility] Comment on above: Performed By: #### L [id number] ####[facility] ([facility])[address] [place] [address] Chloride [Moles/Vol] 102 mmol/L Normal 98-107 [facility] Comment on above: Performed By: #### L [id number] ####[facility] ([facility])[address] [place] [address] CO2 [Moles/Vol] 23 mmol/L Normal 21-31 [facility] Comment on above: Performed By: #### L [id number] ####[facility] ([facility])[address] [place] [address] Creatinine [Mass/Vol] 0.81 mg/dL Normal 0.60-1.20 [facility] Comment on above: Performed By: #### L [id number] ####[facility] ([facility])[address] [place] [address] GLOMERULAR FILTRATION RATE ML/MIN/1.73 SQ M.PREDICTED 81.0 mL/min/1.73m*2 Normal >60.0 [facility] Comment on above: Result Comment: [facility]???s estimated glomerular filtration rate (eGFR) will [...] of individuals. Performed By: #### L [id number] ####[facility] ([facility])[address] [place] [address] Glucose [Mass/Vol] 342 mg/dL High 70-[address] [facility] Comment on above: Performed By: #### L [id number] ####[facility] ([facility])[address] [place] [address] Potassium [Moles/Vol] 4.5 mmol/L Normal 3.5-5.1 [facility] Comment on above: Performed By: #### L [id number] ####[facility] ([facility])[address] [place] [address] Sodium [Moles/Vol] 134 mmol/L Low 136-[address] [facility] Comment on above: Performed By: #### L [id number] ####[facility] ([facility])[address] [place] [address] Urea nitrogen [Mass/Vol] 28 mg/dL High - [facility] Comment on above: Performed By: #### L [id number] ####[facility] ([facility])[address] [place] [address] UREA NITROGEN/CREATININE (MASS RATIO) IN SER/PLAS 34.[address] [facility] Comment on above: Performed By: #### L [id number] ####[facility] ([facility])[address] [place] [address] CBC WITH AUTO DIFFERENTIALon 04-22-2024 Basophils (Bld) [#/Vol] 0.06 10*3/uL Normal 0.00-0.20 [facility] Comment on above: Performed By: #### L [id number] ####[facility] ([facility])[address] [place] [address] Basophils/100 WBC (Bld) 0.5 % Normal 0.0-1.0 [facility] Comment on above: Performed By: #### L [id number] ####[facility] ([facility])[address] [place] [address] Eosinophils (Bld) [#/Vol] 0.22 10*3/uL Normal 0.00-0.50 [facility] Comment on above: Performed By: #### L [id number] ####[facility] ([facility])[address] [place] [address] Eosinophils/100 WBC (Bld) 1.9 % Normal 0.0-6.0 [facility] Comment on above: Performed By: #### L [id number] ####[facility] ([facility])[address] [place] [address] Erythrocyte distribution width (RBC) [Ratio] 13.5 % Normal 11.5-15.0 [facility] Comment on above: Performed By: #### L [id number] ####[facility] ([facility])[address] [place] [address] ERYTHROCYTE MEAN CORPUSCULAR HEMOGLOBIN CONCENTRATION (G/DL) BY AUTOMATED 31.4 g/dL Low 32.0-35.0 [facility] Comment on above: Performed By: #### L [id number] ####[facility] ([facility])[address] [place] [address] Hematocrit (Bld) [Volume fraction] 36.0 % Normal 36.0-48.0 [facility] Comment on above: Performed By: #### L [id number] ####[facility] ([facility])[address] [place] [address] Hemoglobin (Bld) [Mass/Vol] 11.3 g/dL Low 12.0-15.0 [facility] Comment on above: Performed By: #### L [id number] ####[facility] ([facility])[address] [place] [address] Immature granulocytes (Bld) [#/Vol] 0.05 10*3/uL Normal 0.00-0.20 [facility] Comment on above: Performed By: #### L [id number] ####[facility] ([facility])[address] [place] [address] Immature granulocytes/100 WBC (Bld) 0.4 % Normal 0.0-1.0 [facility] Comment on above: Performed By: #### L [id number] ####[facility] ([facility])[address] [place] [address] Lymphocytes (Bld) [#/Vol] 0.93 10*3/uL Low 1.20-4.00 [facility] Comment on above: Performed By: #### L [id number] ####[facility] ([facility])[address] [place] [address] Lymphocytes/100 WBC (Bld) 8.1 % Low 20.0-45.0 [facility] Comment on above: Performed By: #### L [id number] ####[facility] ([facility])[address] [place] [address] MCH (RBC) [Entitic mass] 30.3 pg Normal 27.0-33.0 [facility] Comment on above: Performed By: #### L [id number] ####[facility] ([facility])[address] [place] [address] MCV (RBC) [Entitic vol] 96.5 fL Normal 82.0-98.0 [facility] Comment on above: Performed By: #### L [id number] ####[facility] ([facility])[address] [place] [address] Monocytes (Bld) [#/Vol] 0.89 10*3/uL Normal 0.10-1.00 [facility] Comment on above: Performed By: #### L [id number] ####[facility] ([facility])[address] [place] [address] Monocytes/100 WBC (Bld) 7.7 % Normal 5.0-12.0 [facility] Comment on above: Performed By: #### L [id number] ####[facility] ([facility])[address] [place] [address] Neutrophils (Bld) [#/Vol] 9.38 10*3/uL High 1.60-7.60 [facility] Comment on above: Performed By: #### L [id number] ####[facility] ([facility])[address] [place] [address] Neutrophils/100 WBC (Bld) 81.4 % High 40.0-72.0 [facility] Comment on above: Performed By: #### L [id number] ####[facility] ([facility])[address] [place] [address] NRBC (PER 100 WBCS) BY AUTOMATED COUNT 0.0 % Normal 0 [facility] Comment on above: Performed By: #### L [id number] ####[facility] ([facility])[address] [place] [address] PLATELETS (10*3/UL) IN BLOOD AUTOMATED COUNT 325 10*3/uL Normal 150-400 [facility] Comment on above: Performed By: #### L [id number] ####[facility] ([facility])[address] [place] [address] RBC (Bld) [#/Vol] 3.73 10*6/uL Low 3.80-5.00 [facility] Comment on above: Performed By: #### L [id number] ####[facility] ([facility])[address] [place] [address] WBC (Bld) [#/Vol] 11.53 10*3/uL High 4.00-10.60 [facility] Comment on above: Performed By: #### L [id number] ####[facility] ([facility])[address] [place] [address] EDPROVon 04-22-2024 EDPROV [address] Interpretation Code [facility] HPon 04-22-2024 HP H&P reviewed. The patient was examined and there are no changes to the H&P. Normal [facility] MAGNESIUMon 04-22-2024 Magnesium [Mass/Vol] 1.5 mg/dL Low 1.9-2.7 [facility] Comment on above: Performed By: #### L [id number] ####[facility] ([facility])[address] [place] [address] MRSA/MSSA DNA NASALon 2023 MRSA DNA Negative Normal Negative [facility] Comment on above: Order Comment: Testi [...] preclude nasal colonization. Performed By: #### L [id number] ####[facility] ([facility])[address] [place] [address] MSSA DNA Negative Normal Negative [facility] Comment on above: Order Comment: Testi [...] preclude nasal colonization. Performed By: #### L [id number] ####[facility] ([facility])[address] [place] [address] NURSNOTEon 04-22-2024 NURSNOTE This singer songwriter attempte d to get information about the insulin pump that is placed, patient is unable to give or sign the agreement at this time. Will try again at a later time. Normal [facility] NURSNOTE Normal [facility] NURSNOTE Dressing: Xeroflo, fluffs, kerlix, carlos wrap to bilateral legs Normal [facility] OPNOTEon 04-22-[address] [facility] PHOSPHORUSon 04-22-2024 Magnesium [Mass/Vol] 4.2 mg/dL Normal 2.5-5.0 [facility] Comment on above: Performed By: #### L [id number] ####[facility] ([facility])[address] [place] [address] POCT GLUCOSE METER UNSOLICIT ED RESULTSon 04-22-2024 Glucose [Mass/Vol] 187 mg/dL High 70-[address] [facility] Comment on above: Order Comment: Waive d Testing in the ED is performed under the ED CLIA certificate #[id number]. Result Comment: [email or web address] [email or web address] Performed By: #### L [id number] ####[facility] ([facility])[address] [place] [address] Glucose [Mass/Vol] 256 mg/dL High 70-[address] [facility] Comment on above: Order Comment: Waive d Testing in the ED is performed under the ED CLIA certificate #[id number]. Result Comment: [email or web address] Performed By: #### L [id number] ####[facility] ([facility])[address] [place] [address] Glucose [Mass/Vol] 247 mg/dL High 70-[address] [facility] Comment on above: Order Comment: Waive d Testing in the ED is performed under the ED CLIA certificate #[id number]. Result Comment: [email or web address] Performed By: #### L [id number] ####[facility] ([facility])[address] [place] [address] Glucose [Mass/Vol] 213 mg/dL High 70-[address] [facility] Comment on above: Order Comment: Waive d Testing in the ED is performed under the ED CLIA certificate #[id number]. Result Comment: [email or web address] Performed By: #### L [id number] ####[facility] ([facility])[address] [place] [address] Glucose [Mass/Vol] 247 mg/dL High 70-[address] [facility] Comment on above: Order Comment: Waive d Testing in the ED is performed under the ED CLIA certificate #[id number]. Result Comment: sanket hl Performed By: #### L [id number] ####[facility] ([facility])[address] [place] [address] Glucose [Mass/Vol] 316 mg/dL High 70-[address] [facility] Comment on above: Order Comment: Waive d Testing in the ED is performed under the ED CLIA certificate #[id number]. Result Comment: czyd orc Performed By: #### L [id number] ####[facility] ([facility])[address] [place] [address] Glucose [Mass/Vol] 343 mg/dL High 70-[address] [facility] Comment on above: Order Comment: Waive d Testing in the ED is performed under the ED CLIA certificate #[id number]. Result Comment: czyd orc Performed By: #### L [id number] ####[facility] ([facility])[address] [place] [address] Glucose [Mass/Vol] 354 mg/dL High 70-[address] [facility] Comment on above: Order Comment: Waive d Testing in the ED is performed under the ED CLIA certificate #[id number]. Result Comment: [email or web address] Performed By: #### L [id number] ####[facility] ([facility])[address] [place] [address] Glucose [Mass/Vol] 358 mg/dL High 70-[address] [facility] Comment on above: Order Comment: Waive d Testing in the ED is performed under the ED CLIA certificate #[id number]. Result Comment: [email or web address] Performed By: #### L [id number] ####[facility] ([facility])[address] [place] [address] TOXICOLOGY PANEL URINEon AMPHETAMINE+METHAMPHE TAMINE SCREEN (PRESENCE) IN URINE Negative Normal Negative [facility] Comment on above: Performed By: #### L [id number] ####[facility] ([facility])[address] [address] BARBITURATES PRESENCE IN URINE BY SCREEN METHOD Negative Normal Negative [facility] Comment on above: Performed By: #### L [id number] ####[facility] ([facility])[address] [place] [address] Benzodiazepines Ql (U) Positive Abnormal Negative [facility] Comment on above: Performed By: #### L [id number] ####[facility] ([facility])[address] [place] [place] [address] CANNABINOID (PRESENCE) IN URINE BY SCREEN METHOD Negative Normal Negative [facility] Comment on above: Performed By: #### L [id number] ####[facility] ([facility])[address] [place] [address] Cocaine Ql (U) Negative Normal Negative [facility] Comment on above: Performed By: #### L [id number] ####[facility] ([facility])[address] [place] [address] METHADONE (PRESENCE) IN URINE BY SCREEN METHOD Negative Normal Negative [facility] Comment on above: Performed By: #### L [id number] ####[facility] ([facility])[address] [place] [address] OPIATES (PRESENCE) IN URINE BY SCREEN METHOD Positive Abnormal Negative [facility] Comment on above: Performed By: #### L [id number] ####[facility] ([facility])[address] [place] [address] PHENCYCLIDINE PRESENCE IN URINE BY SCREEN METHOD Negative Normal Negative [facility] Comment on above: Performed By: #### L [id number] ####[facility] ([facility])[address] [place] [address] Propoxyphene Screen Ql (U) Negative Normal Negative [facility] Comment on above: Performed By: #### L [id number] ####[facility] ([facility])[address] [place] [address] TRICYCLIC ANTIDEPRESSANTS (PRESENCE) IN URINE Positive Abnormal Negative [facility] Comment on above: Performed By: #### L [id number] ####[facility] ([facility])[address] [place] [address] URINALYSIS WITH MICROSCOPICo n 04-22-2024 BILIRUBIN, TOTAL PRESENCE IN URINE Negative Normal Negative [facility] Comment on above: Performed By: #### L [id number] ####[facility] ([facility])[address] [place] [address] Clarity (U) Clear Normal Clear [facility] Comment on above: Performed By: #### L [id number] ####[facility] ([facility])[address] [place] [address] Color (U) Yellow Normal Yellow [facility] Comment on above: Performed By: #### L [id number] ####[facility] ([facility])[address] [place] [address] Glucose (U) [Mass/Vol] 50 mg/dL Abnormal Negative [facility] Comment on above: Performed By: #### L [id number] ####[facility] ([facility])[address] [place] [address] HEMOGLOBIN PRESENCE IN URINE Negative Normal Negative [facility] Comment on above: Performed By: #### L [id number] ####[facility] ([facility])[address] [place] [address] Ketones Ql (U) Negative Normal Negative [facility] Comment on above: Performed By: #### L [id number] ####[facility] ([facility])[address] [place] [address] LEUKOCYTE ESTERASE PRESENCE IN URINE BY TEST STRIP Negative Normal Negative [facility] Comment on above: Performed By: #### L [id number] ####[facility] ([facility])[address] [place] [address] MUCUS (#/HPF) IN URINE SEDIMENT Occasional Normal None Seen, Occasional, Few [facility] Comment on above: Performed By: #### L [id number] ####[facility] ([facility])[address] [place] [address] NITRITE PRESENCE IN URINE Negative Normal Negative [facility] Comment on above: Performed By: #### L [id number] ####[facility] ([facility])[address] [place] [address] pH (U) 5.0 [pH] Normal 5.0-8.0 [facility] Comment on above: Performed By: #### L [id number] ####[facility] ([facility])[address] [place] [address] Protein (U) [Mass/Vol] Negative Normal Negative [facility] Comment on above: Performed By: #### L [id number] ####[facility] ([facility])[address] [place] [address] RBC (#/HPF) IN URINE SEDIMENT None Seen Normal None Seen [facility] Comment on above: Performed By: #### L [id number] ####[facility] ([facility])[address] [place] [address] Specific gravity (U) [Rel density] 1.048 High 1.015-1.020 [facility] Comment on above: Performed By: #### L [id number] ####[facility] ([facility])[address] [place] [address] SQUAMOUS EPITHELIAL CELLS (#/HPF) IN URINE SEDIMENT Many Abnormal None Seen, Occasional [facility] Comment on above: Performed By: #### L [id number] ####[facility] ([facility])[address] [place] [address] WBC (LEUKOCYTE) (#/HPF) IN URINE SEDIMENT None Seen Normal None Seen [facility] Comment on above: Performed By: #### L [id number] ####[facility] ([facility])[address] [place] [address] APTTon 04-21-2024 ACTIVATED PARTIAL THROMBOPLASTIN TIME IN PPP BY COAGULATION ASSAY 22.9 Seconds Low 25.0-35.0 [facility] Comment on above: Result Comment: Clin ical significance of the APTT is questionable in the presence of heparin. Performed By: #### L [id number] ####[facility] ([facility])[address] [place] [address] BASIC METABOLIC PANELon 04-05 Anion gap [Moles/Vol] 8 mmol/L Normal 7-20 [facility] Comment on above: Performed By: #### L [id number] ####[facility] ([facility])[address] [place] [address] Calcium [Mass/Vol] 9.1 mg/dL Normal 8.6-10.[address] [facility] Comment on above: Performed By: #### L [id number] ####[facility] ([facility])[address] [place] [address] Chloride [Moles/Vol] 105 mmol/L Normal 98-107 [facility] Comment on above: Performed By: #### L [id number] ####[facility] ([facility])[address] [place] [address] CO2 [Moles/Vol] 27 mmol/L Normal 21-31 [facility] Comment on above: Performed By: #### L [id number] ####[facility] ([facility])[address] [place] [address] Creatinine [Mass/Vol] 0.77 mg/dL Normal 0.60-1.20 [facility] Comment on above: Performed By: #### L [id number] ####[facility] ([facility])[address] [place] [address] GLOMERULAR FILTRATION RATE ML/MIN/1.73 SQ M.PREDICTED 86.1 mL/min/1.73m*2 Normal >60.0 [facility] Comment on above: Result Comment: [facility]???s estimated glomerular filtration rate (eGFR) will [...] of individuals. Performed By: #### L [id number] ####[facility] ([facility])[address] [place] [address] Glucose [Mass/Vol] 158 mg/dL High 70-[address] [facility] Comment on above: Performed By: #### L [id number] ####[facility] ([facility])[address] [place] [address] Potassium [Moles/Vol] 4.1 mmol/L Normal 3.5-5.1 [facility] Comment on above: Performed By: #### L [id number] ####[facility] ([facility])[address] [place] [address] Sodium [Moles/Vol] 136 mmol/L Normal 136-[address] [facility] Comment on above: Performed By: #### L [id number] ####[facility] ([facility])[address] [place] [address] Urea nitrogen [Mass/Vol] 31 mg/dL High 7-25 [facility] Comment on above: Performed By: #### L [id number] ####[facility] ([facility])[address] [place] [address] UREA NITROGEN/CREATININE (MASS RATIO) IN SER/PLAS 40.[address] [facility] Comment on above: Performed By: #### L [id number] ####[facility] ([facility])[address] [place] [address] CBC WITH AUTO DIFFERENTIALon 04-21-2024 Basophils (Bld) [#/Vol] 0.03 10*3/uL Normal 0.00-0.20 [facility] Comment on above: Performed By: #### L [id number] ####[facility] ([facility])[address] [place] [address] Basophils/100 WBC (Bld) 0.2 % Normal 0.0-1.0 [facility] Comment on above: Performed By: #### L [id number] ####[facility] ([facility])[address] [place] [address] Eosinophils (Bld) [#/Vol] 0.23 10*3/uL Normal 0.00-0.50 [facility] Comment on above: Performed By: #### L [id number] ####[facility] ([facility])[address] [place] [address] Eosinophils/100 WBC (Bld) 1.8 % Normal 0.0-6.0 [facility] Comment on above: Performed By: #### L [id number] ####[facility] ([facility])[address] [place] [address] Erythrocyte distribution width (RBC) [Ratio] 13.3 % Normal 11.5-15.0 [facility] Comment on above: Performed By: #### L [id number] ####[facility] ([facility])[address] [place] [address] ERYTHROCYTE MEAN CORPUSCULAR HEMOGLOBIN CONCENTRATION (G/DL) BY AUTOMATED 32.7 g/dL Normal 32.0-35.0 [facility] Comment on above: Performed By: #### L [id number] ####[facility] ([facility])[address] [place] [address] Hematocrit (Bld) [Volume fraction] 35.5 % Low 36.0-48.0 [facility] Comment on above: Performed By: #### L [id number] ####[facility] ([facility])[address] [place] [address] Hemoglobin (Bld) [Mass/Vol] 11.6 g/dL Low 12.0-15.0 [facility] Comment on above: Performed By: #### L [id number] ####[facility] ([facility])[address] [place] [address] Immature granulocytes (Bld) [#/Vol] 0.04 10*3/uL Normal 0.00-0.20 [facility] Comment on above: Performed By: #### L [id number] ####[facility] ([facility])[address] [place] [address] Immature granulocytes/100 WBC (Bld) 0.3 % Normal 0.0-1.0 [facility] Comment on above: Performed By: #### L [id number] ####[facility] ([facility])[address] [place] [address] Lymphocytes (Bld) [#/Vol] 1.65 10*3/uL Normal 1.20-4.00 [facility] Comment on above: Performed By: #### L [id number] ####[facility] ([facility])[address] [place] [address] Lymphocytes/100 WBC (Bld) 12.6 % Low 20.0-45.0 [facility] Comment on above: Performed By: #### L [id number] ####[facility] ([facility])[address] [place] [address] MCH (RBC) [Entitic mass] 30.0 pg Normal 27.0-33.0 [facility] Comment on above: Performed By: #### L [id number] ####[facility] ([facility])[address] [place] [address] MCV (RBC) [Entitic vol] 91.7 fL Normal 82.0-98.0 [facility] Comment on above: Performed By: #### L [id number] ####[facility] ([facility])[address] [place] [address] Monocytes (Bld) [#/Vol] 1.02 10*3/uL High 0.10-1.00 [facility] Comment on above: Performed By: #### L [id number] ####[facility] ([facility])[address] [place] [address] Monocytes/100 WBC (Bld) 7.8 % Normal 5.0-12.0 [facility] Comment on above: Performed By: #### L [id number] ####[facility] ([facility])[address] [place] [address] Neutrophils (Bld) [#/Vol] 10.12 10*3/uL High 1.60-7.60 [facility] Comment on above: Performed By: #### L [id number] ####[facility] ([facility])[address] [place] [address] Neutrophils/100 WBC (Bld) 77.3 % High 40.0-72.0 [facility] Comment on above: Performed By: #### L [id number] ####[facility] ([facility])[address] [place] [address] NRBC (PER 100 WBCS) BY AUTOMATED COUNT 0.0 % Normal 0 [facility] Comment on above: Performed By: #### L [id number] ####[facility] ([facility])[address] [place] [address] PLATELETS (10*3/UL) IN BLOOD AUTOMATED COUNT 334 10*3/uL Normal 150-400 [facility] Comment on above: Performed By: #### L [id number] ####[facility] ([facility])[address] [place] [address] RBC (Bld) [#/Vol] 3.87 10*6/uL Normal 3.80-5.00 [facility] Comment on above: Performed By: #### L [id number] ####[facility] ([facility])[address] [address] WBC (Bld) [#/Vol] 13.09 10*3/uL High 4.00-10.60 [facility] Comment on above: Performed By: #### L [id number] ####[facility] ([facility])[address] [place] [address] CONSULTon 04-21-[address] [facility] CT CERVICAL SPINE WO IV CONT RASTon 04-21-2024 CT CERVICAL SPINE WO IV CONTRAST Normal [facility] CT CHEST W IV CONTRASTon CT CHEST W IV CONTRAST Normal [facility] CT HEAD WO IV CONTRASTon CT HEAD WO IV CONTRAST Normal [facility] CTA AORTA AND BILATERAL ILIO FEMORAL RUNOFF W IV CONTRASTon 04-21-2024 CTA AORTA AND BILATERAL ILIOFEMORAL RUNOFF W IV CONTRAST Normal [facility] EDNURSon 04-21-[address] [facility] EDNURS Transfer from [place] Normal [facility] EDPROVon 04-21-[address] [facility] ETHANOLon 04-21-2024 ETHANOL (MG/DL) IN SER/PLAS <[address] [facility] Comment on above: Performed By: #### L [id number] ####[facility] ([facility])[address] [place] [address] ETHANOL CALCULATED (%) [facility] Comment on above: Performed By: #### L [id number] ####[facility] ([facility])[address] [place] [address] HEPATIC FUNCTION PANELon Albumin [Mass/Vol] 3.5 g/dL Normal 3.5-5.[address] [facility] Comment on above: Performed By: #### L [id number] ####[facility] ([facility])[address] [place] [address] ALP [Catalytic activity/Vol] 240 U/L High 34-104 [facility] Comment on above: Performed By: #### L [id number] ####[facility] ([facility])[address] [place] [address] ALT [Catalytic activity/Vol] 72 U/L High 7-52 [facility] Comment on above: Performed By: #### L [id number] ####[facility] ([facility])[address] [place] [address] AST [Catalytic activity/Vol] 131 U/L High 13-39 [facility] Comment on above: Performed By: #### L [id number] ####[facility] ([facility])[address] [place] [address] Bilirubin [Mass/Vol] 0.3 mg/dL Normal 0.3-1.0 [facility] Comment on above: Performed By: #### L [id number] ####[facility] ([facility])[address] [place] [address] Magnesium [Mass/Vol] 0.1 mg/dL Normal 0-0.2 [facility] Comment on above: Performed By: #### L [id number] ####[facility] ([facility])[address] [place] [address] Protein [Mass/Vol] 6.8 g/dL Normal 6.0-8.[address] [facility] Comment on above: Performed By: #### L [id number] ####[facility] ([facility])[address] [place] [address] HPon 04-21-2024 HP [facility] HP [facility] LACTIC ACID, PLASMAon 2023 LACTATE (MMOL/L) IN SER/PLAS 0.9 mmol/L Normal 0.5-2.2 [facility] Comment on above: Performed By: #### L [id number] ####[facility] ([facility])[address] [place] [address] LIPASEon 04-21-2024 LIPASE (U/L) IN SER/PLAS 8 U/L Low 11-82 [facility] Comment on above: Performed By: #### L [id number] ####[facility] ([facility])[address] [place] [address] PROTIME-INRon 04-21-2024 INR IN PPP BY COAGULATION ASSAY 0.99 Normal 0.90-1.10 [facility] Comment on above: Result Comment: ACCC [...] CHEST 1995;108:231S-246S. Performed By: #### L [id number] ####[facility] ([facility])[address] [place] [address] PROTHROMBIN TIME (PT) IN PPP BY COAGULATION ASSAY 13.1 Seconds Normal 12.3-14.8 [facility] Comment on above: Performed By: #### L [id number] ####[facility] ([facility])[address] [place] [address] TROPONIN Ion 04-21-2024 Troponin I.cardiac [Mass/Vol] 0.01 ng/mL Normal 0.00-0.04 [facility] Comment on above: Performed By: #### L [id number] ####[facility] ([facility]OSSE)[address] [place] [address] TYPE AND SCREENon 04-21-[address]24 AB SCREEN Negative Normal [facility] Comment on above: Performed By: #### L [id number] ####[facility], ABO group Nom (Bld) A Normal [facility] Comment on above: Performed By: #### L [id number] ####[facility], RH TYPE IN BLOOD Positive Normal [facility] Comment on above: Performed By: #### L [id number] ####[facility], VITAMIN D 25 HYDROXYon 04-21 CALCIDIOL (25 [place] VITAMIN D3) (NG/ML) IN SER/PLAS 34.8 ng/mL Normal 30.0-80.0 [facility] Comment on above: Result Comment: >80. 0 Toxicity possible Performed By: #### L [id number] ####[facility] ([facility])[address] [place] [address] BASIC METABOLIC PANLon 04-13 Anion gap [Moles/Vol] 10 mmol/L Normal 5-15 Pro [facility] Comment on above: Performed By: #### B MP #### [facility] ([id number]) [address], [address] [place] [address] Calcium [Mass/Vol] 9.9 mg/dL Normal 8.5-10.5 [facility] Comment on above: Performed By: #### B MP #### [facility] ([id number]) [address], [address] [place] [address] Chloride [Moles/Vol] 100 mmol/L Normal 98-109 [facility] Comment on above: Performed By: #### B MP #### [facility] ([id number]) [address], [address] [place] [address] CO2 [Moles/Vol] 27 mmol/L Normal 22-32 [facility] Comment on above: Performed By: #### B MP #### [facility] ([id number]) [address], [address] [place] [address] Creatinine [Mass/Vol] 0.92 mg/dL Normal 0.40-1.00 [facility] Comment on above: Result Comment: METH OD TRACEABLE TO IDMS STANDARD Performed By: #### B MP #### [facility] ([id number]) [address], [address] [place] [address] GFR/1.73 sq M.predicted among non-blacks MDRD (S/P/Bld) [Vol rate/Area] 70 mL/min/{1.73_m2} Normal >59 [facility] Comment on above: Result Comment: Reported eGFR is based on the CKD-EPI 2020 equation that does not use a race coefficient. Performed By: #### B MP #### [facility] ([id number]) [address], [address] [place] [address] Glucose [Mass/Vol] 151 mg/dL High 65-99 [facility] Comment on above: Performed By: #### B MP #### [facility] ([id number]) [address], [address] [place] [address] Potassium [Moles/Vol] 4.5 mmol/L Normal 3.5-5.0 [facility] Comment on above: Performed By: #### B MP #### [facility] ([id number]) [address], [address] [place] [address] Sodium [Moles/Vol] 137 mmol/L Normal 134-146 [facility] Comment on above: Performed By: #### B MP #### [facility] ([id number]) [address], [address] [place] [address] Urea nitrogen [Mass/Vol] 28 mg/dL High 5-27 [facility] Comment on above: Performed By: #### B MP #### [facility] ([id number]) [address], [address] [place] [address] DRUG SCREEN, URINEon 024 AMPHETAMINE/METHAMP Negative Normal NEG [facility] Comment on above: Result Comment: AMPH /METH screening cut off = 1000 ng/mL Performed By: #### SELENA STINSON #### [facility] ([id number]) [address], [address] [place] [address] BARBITURATES Negative Normal NEG [facility] Comment on above: Result Comment: Juana iturates screening cut off value = 200 ng/mL Performed By: #### SELENA STINSON #### [facility] ([id number]) [address], [address] [place] [address] BENZODIAZEPINES Negative Normal NEG [facility] Comment on above: Result Comment: Wade odiazepines screening cut off value = 200 ng/mL Performed By: #### SELENA STINSON #### [facility] ([id number]) [address], [address] [place] [address] CANNABINOIDS Negative Normal NEG [facility] Comment on above: Result Comment: Venus abinoids/THC screening cut off value = 50 ng/mL Performed By: #### SELENA STINSON #### [facility] ([id number]) [address] [place] [address] COCAINE METABOLITE Negative Normal NEG [facility] Comment on above: Result Comment: Coca ine screening cut off value = 300 ng/mL Performed By: #### SELENA STINSON #### [facility] ([id number]) [address], [address] [place] [address] ECSTASY Negative Normal NEG [facility] Comment on above: Result Comment: Ecst asy screening cut off value = 500 ng/mL This report is intended for use in clinical monitoring or management of patients. Performed By: #### SELENA STINSON #### [facility] ([id number]) [address], [address] [place] [address] METHADONE Negative Normal NEG [facility] Comment on above: Result Comment: Meth adone screening cut off value = 300 ng/mL. Performed By: #### SELENA STINSON #### [facility] ([id number]) [address], [address] [place] [address] OPIATES Negative Normal NEG [facility] Comment on above: Result Comment: Opia rafal screening cut off value = 300 ng/mL NOTE: This test is used for the detection of codeine, hydrocodone (>1000 ng/mL), morphine and hydromorphone (>900 ng/mL) in urine. Performed By: #### SELENA STINSON #### [facility] ([id number]) [address], [address] [place] [address] OXYCODONE Negative Normal NEG [facility] Comment on above: Result Comment: Oxyc odone screening cut off value = 300 ng/mL NOTE: This test is used for the detection of oxycodone and oxymorphone in urine. Performed By: #### SELENA STINSON #### [facility] ([id number]) [address], [address] [place] [address] PHENCYCLIDINE Negative Normal NEG [facility] Comment on above: Result Comment: Phen cyclidine screening cut off value = 25 ng/mL Performed By: #### SELENA STINSON #### [facility] ([id number]) [address], [address] [place] [address] MICROALBUMIN - ALBUMIN:CREAT ININE URINE RATIOon 03-27-2024 ALB/CREAT RATIO 37.7 mg/g creat High 0.0-30.0 [facility] Comment on above: Performed By: #### SELENA STINSON #### [facility] ([id number]) [address] [place] [address] Albumin DL <= 20 mg/L (U) [Mass/Vol] 2.0 mg/dL High 0.0-1.9 [facility] Comment on above: Performed By: #### SELENA STINSON #### [facility] ([id number]) [address] [place] [address] URINE CREAT 53.06 mg/dL Normal [facility] Comment on above: Performed By: #### SELENA STINSON #### [facility] ([id number]) [address] [address] [place] [address] COMPLETE BLOOD COUNTon 03-26 Erythrocyte distribution width (RBC) [Ratio] 14.4 % Normal 11.5-15.0 [facility] Comment on above: Performed By: #### Sheila ALY, CMP #### [facility] ([id number]) [address] [address] [place] [address] Hematocrit (Bld) [Volume fraction] 40.1 % Normal 35-47 [facility] Comment on above: Performed By: #### Sheila ALY, CMP #### [facility] ([id number]) [address] [address] [place] [address] Hemoglobin (Bld) [Mass/Vol] 13.5 g/dL Normal 11.7-15.5 [facility] Comment on above: Performed By: #### Sheila BC, CMP #### [facility] ([id number]) [address] [place] [address] MCH (RBC) [Entitic mass] 30.8 pg Normal 27-34 [facility] Comment on above: Performed By: #### Sheila BC, CMP #### [facility] ([id number]) [address] [place] [address] MCHC (RBC) [Mass/Vol] 33.7 g/dL Normal 32-36 [facility] Comment on above: Performed By: #### C BC, CMP #### [facility] ([id number]) [address], [address] [place] [address] MCV (RBC) [Entitic vol] 91 fL Normal 80-100 [facility] Comment on above: Performed By: #### C BC, CMP #### [facility] ([id number]) [address], [address] [place] [address] Platelet mean volume (Bld) [Entitic vol] 9.8 fL Normal 7-12 [facility] Comment on above: Performed By: #### C SHEEBA, CMP #### [facility] ([id number]) [address], [address] [place] [address] Platelets (Bld) [#/Vol] 308 10*3/uL Normal 150-450 [facility] Comment on above: Performed By: #### C BC, CMP #### [facility] ([id number]) [address], [address] [place] [address] RBC COUNT 4.39 X10E12/L Normal 3.80-5.20 [facility] Comment on above: Performed By: #### C SHEEBA, CMP #### [facility] ([id number]) [address], [address] [place] [address] WBC (Bld) [#/Vol] 10.1 10*3/uL Normal 4.0-11.0 [facility] Comment on above: Performed By: #### C BC, CMP #### [facility] ([id number]) [address], [address] [place] [address] COMPREHENSIVE METABOLIC PANE Neftali 03-26-2024 Albumin [Mass/Vol] 3.8 g/dL Normal 3.2-5.3 [facility] Comment on above: Performed By: #### C BC, CMP #### [facility] ([id number]) [address], [address] [place] [address] ALP [Catalytic activity/Vol] 133 U/L High 39-130 [facility] Comment on above: Performed By: #### C BC, CMP #### [facility] ([id number]) [address], [address] [place] [address] ALT [Catalytic activity/Vol] 22 U/L Normal 0-31 [facility] Comment on above: Performed By: #### C BC, CMP #### [facility] ([id number]) [address], [address] [place] [address] Anion gap [Moles/Vol] 7 mmol/L Normal 5-15 [facility] Comment on above: Performed By: #### C SHEEBA, CMP #### [facility] ([id number]) [address], [address] [place] [address] AST [Catalytic activity/Vol] 24 U/L Normal 0-41 [facility] Comment on above: Performed By: #### C SHEEBA, CMP #### [facility] ([id number]) [address] [place] [address] Bilirubin [Mass/Vol] 0.4 mg/dL Normal 0.3-1.2 [facility] Comment on above: Performed By: #### C SHEEBA, CMP #### [facility] ([id number]) [address], [address] [place] [address] Calcium [Mass/Vol] 9.6 mg/dL Normal 8.5-10.5 [facility] Comment on above: Performed By: #### C BC, CMP #### [facility] ([id number]) [address], [address] [place] [address] Chloride [Moles/Vol] 102 mmol/L Normal 98-109 [facility] Comment on above: Performed By: #### C BC, CMP #### [facility] ([id number]) [address], [address] [place] [address] CO2 [Moles/Vol] 28 mmol/L Normal 22-32 [facility] Comment on above: Performed By: #### C SHEEBA, CMP #### [facility] ([id number]) [address], [address] [place] [address] Creatinine [Mass/Vol] 0.96 mg/dL Normal 0.40-1.00 [facility] Comment on above: Result Comment: METH OD TRACEABLE TO IDMS STANDARD Performed By: #### C SHEEBA, CMP #### [facility] ([id number]) [address], [address] [place] [address] GFR/1.73 sq M.predicted among non-blacks MDRD (S/P/Bld) [Vol rate/Area] 66 mL/min/{1.73_m2} Normal >59 [facility] Comment on above: Result Comment: Reported eGFR is based on the CKD-EPI 2020 equation that does not use a race coefficient. Performed By: #### Sheila ALY, CMP #### [facility] ([id number]) [address], [address] [place] [address] Glucose [Mass/Vol] 179 mg/dL High 65-99 [facility] Comment on above: Performed By: #### Sheila ALY, CMP #### [facility] ([id number]) [address] [place] [address] Potassium [Moles/Vol] 5.1 mmol/L High 3.5-5.0 [facility] Comment on above: Performed By: #### Sheila ALY, CMP #### [facility] ([id number]) [address], [address] [place] [address] Protein [Mass/Vol] 7.2 g/dL Normal 6.0-8.0 [facility] Comment on above: Performed By: #### C BC, CMP #### [facility] ([id number]) [address], [address] [place] [address] Sodium [Moles/Vol] 137 mmol/L Normal 134-146 [facility] Comment on above: Performed By: #### C BC, CMP #### [facility] ([id number]) [address], [address] [place] [address] Urea nitrogen [Mass/Vol] 23 mg/dL Normal 5-27 [facility] Comment on above: Performed By: #### C BC, CMP #### [facility] ([id number]) [address], [address] [place] [address] Lipid 1996 panelon 4 Cholesterol [Mass/Vol] 106 mg/dL Low 150 - 200 mg/dL [facility] Cholesterol in HDL [Mass/Vol] 46 mg/dL 39 - PINF mg/dL [facility] Comment on above: HDL <40 mg/dL - High Risk HDL > or = 40mg/dL- Desirable HDL >60 mg/dL - Negative Risk Cholesterol in LDL [Mass/Vol] 38 mg/dL NINF - 130 mg/dL [facility] Comment on above: LDL <100 mg/dL - Desirable LDL >160 mg/dL - High Risk Cholesterol in VLDL [Mass/Vol] 22 mg/dL 0 - 30 mg/dL [facility] Cholesterol.total/Cho lesterol in HDL [Mass ratio] 2.3 {ratio} 1.0 - 5.0 [facility] Interpretation and review of laboratory results Abnormal [facility] Triglyceride [Mass/Vol] 110 mg/dL 27 - 150 mg/dL [facility] Cholesterol [Mass/Vol] 106 mg/dL Low 150-200 [facility] Comment on above: Performed By: #### 2 4331-1, 3015-3 #### [facility] ([id number]) [address], [address] [place] [address] Cholesterol in HDL [Mass/Vol] 46 mg/dL Normal >39 [facility] Comment on above: Result Comment: HDL <40 mg/dL - High Risk HDL > or = 40mg/dL- Desirable HDL >60 mg/dL - Negative Risk Performed By: #### 2 4331-1, 3015- #### [facility] ([id number]) [address], [address] [place] [address] Cholesterol in LDL [Mass/Vol] 38 mg/dL Normal <130 [facility] Comment on above: Result Comment: LDL <100 mg/dL - Desirable LDL >160 mg/dL - High Risk Performed By: #### 2 4331-1, 3015-3 #### [facility] ([id number]) [address] [place] [address] Cholesterol in VLDL [Mass/Vol] 22 mg/dL Normal 0-30 [facility] Comment on above: Performed By: #### 2 4331-1, 3015-3 #### [facility] ([id number]) [address], [address] [place] [address] CHOLESTEROL:HDL 2.3 Normal 1.0-5.0 [facility] Comment on above: Performed By: #### 2 4331-1, 3015- #### [facility] ([id number]) [address], [address] [place] [address] Triglyceride [Mass/Vol] 110 mg/dL Normal 27-150 [facility] Comment on above: Performed By: #### 2 4331-1, 3016-3 #### [facility] ([id number]) [address], [address] [place] [address] TSHon 12-05-2023 TSH Qn 3.00 m[IU]/L [facility] TSH Qnon 12-05-2023 [facility] TSH 3.00 uIU/mL Normal 0.49-4.67 [facility] Comment on above: Performed By: #### 2 4331-1, 3016-3 #### [facility] ([id number]) [address], [address] [place] [address] POINT OF CARE GLUCOSEon 10-06 Glucose [Mass/Vol] 252 mg/dL Critically high 74-106 [facility] Comment on above: Performed By: #### P OCGLUC ####[facility] [address] [place], [place] [address]Dr. Abiel Clement PROF CHEM 8 (BAS METB)on Anion gap [Moles/Vol] 11.5 mmol/L Normal [facility] Comment on above: Performed By: #### B MP ####[facility] [address] [place], [place] [address]Dr. Abiel Clement Calcium [Mass/Vol] 9.6 mg/dL Normal 8.5-10.1 [facility] Comment on above: Performed By: #### B MP ####[facility] [address] [place], [place] [address]Dr. Abiel Clement Chloride [Moles/Vol] 102 mmol/L Normal 98-[address] [facility] Comment on above: Performed By: #### B MP ####[facility] [address] [place], [place] [address]Dr. Abiel Clement CO2 [Moles/Vol] 30.8 mmol/L Normal 21.0-32.0 [facility] Comment on above: Performed By: #### B MP ####[facility] [address] [place] [address]Dr. Abiel Urbano Creatinine [Mass/Vol] 0.72 mg/dL Normal 0.55-1.[address] [facility] Comment on above: Performed By: #### B MP ####[facility] [address] [place] [address]Dr. Suyapaviviana Urbano EGFR-AF PALAUAN >60 Normal >=60 [facility] Comment on above: Performed By: #### B MP ####[facility] [address] [place] [address]Dr. Abiel Clement EGFR-NON AF PALAUAN >60 Normal >=[address] [facility] Comment on above: Performed By: #### B MP ####[facility] [address] [place], [place] [address]Dr. Abiel Clement Glucose [Mass/Vol] 127 mg/dL Critically high 74-106 [facility] Comment on above: Performed By: #### B MP ####[facility] [address] [place], [place] [address]Dr. Abiel Clement Potassium [Moles/Vol] 4.3 mmol/L Normal 3.5-5.[address] [facility] Comment on above: Performed By: #### B MP ####[facility] Vsxbzhbcdn[address] [place], [place] [address]Dr. Abiel Clement Sodium [Moles/Vol] 140 mmol/L Normal 136-145 [facility] Comment on above: Performed By: #### B MP ####[facility] Eluxgvyiyj[address] [place] [address]Dr. Abiel Clement Urea nitrogen [Mass/Vol] 17.0 mg/dL Normal 7.0-18.[address] [facility] Comment on above: Performed By: #### B MP ####[facility] Drinuohqct[address] [place] [address]Dr. Abiel Clement Urea nitrogen/Creatinine [Mass ratio] 23.6 mg/mg Normal [facility] Comment on above: Performed By: #### B MP ####[facility] Vgthhdfuhs27[address] [place] [address]Dr. Abiel Clement CULTURE URINEon 08-07-2022 CULTURE URINE Normal [facility] Comment on above: Performed By: #### U RCX ####[facility] Dqrgpwxlke6026 [place] [id number]. Abiel Celment CBC W MANUAL DIFFon 08-05-20 22 ANISOCYTOSIS SLIGHT Normal [facility] Comment on above: Performed By: #### C BCALLY ####[facility] Zytsxmgvct7064 [place] [address]Dr. Abiel Clement ATYPICAL LYMPH # Normal [facility] Comment on above: Performed By: #### C ALVINO ####[facility] Dcknffnyvu438[address] [place], [place] [address]Dr. Abiel Clement ATYPICAL LYMPH % Normal [facility] Comment on above: Performed By: #### C ALVINO ####[facility] Txgrwbvfar84[address] [place], [place] [address]Dr. Abiel Clement BAND # 0.6 103/ul Critically high 0.0-0.3 [facility] Comment on above: Performed By: #### C BCALLY ####[facility] Gcrmtznnsc[address] [place], [place] [address]Dr. Abiel Urbano BAND % 3 % Normal 0-5 [facility] Comment on above: Performed By: #### C BCALLY ####[facility] Ltqgzzndaz[address] [place], [place] [address]Dr. Abiel Clement BASOM # 0.00 103/ul Normal 0.00-0.10 [facility] Comment on above: Performed By: #### C BCALLY ####[facility] Dakrosyhwn[address] [place], [place] [address]Dr. Abiel Clement BASOM % 0.0 % Critically low 0.2-2.0 [facility] Comment on above: Performed By: #### C BCALLY ####[facility] Vtfxbajdqc[address] [place], [place] [address]Dr. Abiel Clement BLAST # Normal [facility] Comment on above: Performed By: #### C ALVINO ####[facility] Hullzjlxzj5945 [place] [id number]. Abiel Clement BLAST % Normal [facility] Comment on above: Performed By: #### C ALVINO ####[facility] Qaescfgynu8908 [place] [id number]. Abiel Clement CORRECTED WBC Normal 4.0-11.0 [facility] Comment on above: Performed By: #### C ALVINO ####[facility] Mzopjrptgo5973 [place] [id number]. Abiel Clement EOS # 0.00 103/ul Normal 0.00-0.70 [facility] Comment on above: Performed By: #### C ALVINO ####[facility] Wonitngxqh2063 [place] [id number]. Abiel Clement EOS% 0.0 % Critically low 0.9-7.0 [facility] Comment on above: Performed By: #### C ALVINO ####[facility] Cubjfgjfpu9144 [place] [id number]. Abiel Clement HCT 34.0 % Critically low 36.0-48.0 [facility] Comment on above: Performed By: #### C ALVINO ####[facility] Vrxqlpugup0575 [place] [id number]. Abiel Clement HGB 10.8 g/dl Critically low 12.0-16.0 [facility] Comment on above: Performed By: #### C ALVINO ####[facility] Nxndiorbrw2721 [place] [id number]. Abiel Clement LYMPHM # 0.61 103/ul Critically low 1.20-3.80 [facility] Comment on above: Performed By: #### C ALVINO ####[facility] Spawzxaucb7241 [place] [id number]. Abiel Clement LYMPHM% 3.0 % Critically low 20.5-60.0 [facility] Comment on above: Performed By: #### C ALVINO ####[facility] Glhscxlvbe8708 [place] [id number]. Abiel Clement MCH 27.3 pg Normal 26.7-34.0 [facility] Comment on above: Performed By: #### C ALVINO ####[facility] Iwumlzwghy6258 [place] [id number]. Abiel Clement MCHC 31.8 g/dl Normal 29.9-35.2 [facility] Comment on above: Performed By: #### C ALVINO ####[facility] Kyryvgejwo7575 [place] [id number]. Abiel Clement MCV 85.9 fL Normal 81.0-99.0 [facility] Comment on above: Performed By: #### C ALVINO ####[facility] Cwqqjnjioy[address] [place], [place] [address]Dr. Abiel Clement METAMYELOCYTE # Normal [facility] Comment on above: Performed By: #### C ALVINO ####[facility] Evzuouamiw[address] [place], [place] [address]Dr. Abiel Clement METAMYELOCYTE % Normal [facility] Comment on above: Performed By: #### C ALVINO ####[facility] Dgxtdcnvev40[address] [place], [place] [address]Dr. Abiel Clement MONOM# 1.01 103/ul Critically high 0.30-0.80 [facility] Comment on above: Performed By: #### C ALVINO ####[facility] Kbesavgepl57[address] [place], [place] [address]Dr. Abiel Clement MONOM% 5.0 % Normal 1.7-12.0 [facility] Comment on above: Performed By: #### C ALVINO ####[facility] Efxgprwjkh[address] [place], [place] [address]Dr. Abiel Clement MPV 11.1 fL Normal 9.5-13.5 [facility] Comment on above: Performed By: #### C ALVINO ####[facility] Zlnbhkpfuj72[address] [place], [place] [address]Dr. Abiel Clement MYELOCYTE # Normal [facility] Comment on above: Performed By: #### C ALVINO ####[facility] Jzclmhcfwi9954 [place], [place] [address]Tj. Abiel Clement MYELOCYTE % Normal [facility] Comment on above: Performed By: #### C BCALLY ####[facility] Dviguarvsk4506 [place], [place] [address]Fl. Abiel Clement NRBC Normal [facility] Comment on above: Performed By: #### C BCALLY ####[facility] Cevqotmtvw0170 [place] [id number]. Abiel Clement PLT 283 103/ul Normal 150-450 [facility] Comment on above: Performed By: #### C ALVINO ####[facility] Flqaxomkgy7990 [place] [id number]. Abiel Clement RBC 3.96 106/ul Critically low 4.20-5.40 [facility] Comment on above: Performed By: #### C ALVINO ####[facility] Xkvpooraft5746 [place] [id number]. Abiel Clement RDW 15.4 % Critically high 11.0-15.0 [facility] Comment on above: Performed By: #### C ALVINO ####[facility] Wveooondgv6281 [place] [id number]. Abiel Clement SEG # 18.07 103/ul Critically high 1.40-6.50 [facility] Comment on above: Performed By: #### C ALVINO ####[facility] Ylbzkokgzc1499 [place] [id number]. Abiel Clement SEG % 89.0 % Critically high 43.0-75.0 [facility] Comment on above: Performed By: #### C BCALLY ####[facility] Xsmgdyddds4627 [place] [id number]. Abiel Clement WBC 20.3 103/ul Critically high 4.0-11.0 [facility] Comment on above: Performed By: #### C BCALLY ####[facility] Rbpijsmwpp7478 [place] [id number]. Abiel Clement LACTATE/LACTIC ACIDon 12-01- 2022 Lactate [Moles/Vol] 2.5 mmol/L Critically high 0.4-1.[address] [facility] Comment on above: Performed By: #### L ACT ####[facility] Abdpzqieeq429[address] [place], [place] [address]Dr. Abiel Clement POINT OF CARE GLUCOSEon 12- Glucose [Mass/Vol] 238 mg/dL Critically high 74-106 [facility] Comment on above: Performed By: #### P OCGLUC ####[facility] Glufznbqeh[address] [place], [place] [address]Dr. Abiel Clement PROF CHEM 8 (BAS METB)on Anion gap [Moles/Vol] 10.8 mmol/L Normal [facility] Comment on above: Performed By: #### B MP ####[facility] Tvcpddvzza9[address] [place], [place] [address]Dr. Abiel Clement Calcium [Mass/Vol] 8.4 mg/dL Critically low 8.5-10.[address] [facility] Comment on above: Performed By: #### B MP ####[facility] Pmtofbbjsa136[address] [place], [place] [address]Dr. Abiel Clement Chloride [Moles/Vol] 103 mmol/L Normal 98-[address] [facility] Comment on above: Performed By: #### B MP ####[facility] Xmzbdujlfa018[address] [place], [place] [address]Dr. Abiel Clement CO2 [Moles/Vol] 27.0 mmol/L Normal 21.0-32.0 [facility] Comment on above: Performed By: #### B MP ####[facility] Cxdbpobufi0439 [place] [address]Dr. Abiel Clement Creatinine [Mass/Vol] 1.02 mg/dL Normal 0.55-1.[address] [facility] Comment on above: Performed By: #### B MP ####[facility] Ykcekzqgtd4146 [place] [address]Dr. Abiel Clement EGFR-AF PALAUAN >60 Normal >=60 [facility] Comment on above: Performed By: #### B MP ####[facility] Jdoqebkdkd7503 [place] [id number]. Abiel Clement EGFR-NON AF PALAUAN 55 mL/min/1.73m2 Critically low >=[address] [facility] Comment on above: Performed By: #### B MP ####[facility] Waytyuhtcf2278 [place] [address]Dr. Abiel Clement Glucose [Mass/Vol] 199 mg/dL Critically high 74-106 [facility] Comment on above: Performed By: #### B MP ####[facility] Rwhvsfdfxh3608 [place] [address]Dr. Abiel Clement Potassium [Moles/Vol] 3.8 mmol/L Normal 3.5-5.[address] [facility] Comment on above: Performed By: #### B MP ####[facility] Rcgcjnfonu7422 [place] [address]Dr. Abiel Clement Sodium [Moles/Vol] 137 mmol/L Normal 136-145 [facility] Comment on above: Performed By: #### B MP ####[facility] Ptuwpmbvji6832 [place] [address]Dr. Abiel Clement Urea nitrogen [Mass/Vol] 21.0 mg/dL Critically high 7.0-18.[address] [facility] Comment on above: Performed By: #### B MP ####[facility] Hjawpbnlsv8570 [place] [address]Dr. Abiel Clement Urea nitrogen/Creatinine [Mass ratio] 20.6 mg/mg Normal [facility] Comment on above: Performed By: #### B MP ####[facility] Xtkbkoobsx5493 [place] [address]Dr. Abiel Clement ACETONE SERUMon 08-04-2022 ACETONE Negative Normal NEGATIVE [facility] Comment on above: Performed By: #### A CETON ####[facility] Twwxwpgynd8[address] [place], [place] [address]Dr. Abiel Clement AMMONIAon 08-04-2022 Ammonia (P) [Moles/Vol] 24 umol/L Normal 11-[address] [facility] Comment on above: Performed By: #### A MM ####[facility] Rnchrjcxgi4223 [place] [id number]. Abiel Clement CBC AUTO DIFFon 08-04-2022 BASO # 0.0 103/ul Normal 0.0-0.1 [facility] Comment on above: Performed By: #### C BC ####[facility] Rratyscxwu690[address] [place], [place] [address]Dr. Suyapaviviana Clement Basophils/100 WBC (Bld) 0.3 % Normal 0.2-2.0 [facility] Comment on above: Performed By: #### C BC ####[facility] Vyodebthdf25[address] [place], [place] [address]Dr. Suyapaviviana Clement EO # 0.0 103/ul Normal 0.0-0.7 [facility] Comment on above: Performed By: #### C BC ####[facility] Upxxsrvwla304[address] [place], [place] [address]Dr. Abiel Clement Eosinophils/100 WBC (Bld) 0.4 % Critically low 0.9-7.0 [facility] Comment on above: Performed By: #### C BC ####[facility] Kgtsgshwzp[address] [place], [place] [address]Dr. Suyapaviviana Clement Erythrocyte distribution width (RBC) [Ratio] 15.1 % Critically high 11.0-15.[address] [facility] Comment on above: Performed By: #### C BC ####[facility] Vffhpgmfme[address] [place], [place] [address]Dr. Suyapaviviana Clement Hematocrit (Bld) [Volume fraction] 37.7 % Normal 36.0-48.0 [facility] Comment on above: Performed By: #### C BC ####[facility] Joxondudus[address] [place], [place] [address]Dr. Suyapaviviana Clement Hemoglobin (Bld) [Mass/Vol] 12.4 g/dL Normal 12.0-16.0 [facility] Comment on above: Performed By: #### C BC ####[facility] Mdnoztzlby25[address] [place], [place] [address]Dr. Abiel Clement IG # 0.02 10e3/ul Normal 0.00-0.03 [facility] Comment on above: Performed By: #### C BC ####[facility] Mlpudrxouf4510 [place] [id number]. Abiel Clement IG % 0.2 % Normal 0.0-0.[address] [facility] Comment on above: Performed By: #### C BC ####[facility] Thfseezjch2403 [place] [id number]. Abiel Clement LYMPH # 0.6 103/ul Critically low 1.2-3.8 [facility] Comment on above: Performed By: #### C BC ####[facility] Wwleqtjjev3783 [place] [id number]. Abiel Urbano Lymphocytes/100 WBC (Bld) 6.8 % Critically low 20.5-60.[address] [facility] Comment on above: Performed By: #### C BC ####[facility] Sjsjrymjkz0926 [place] [address]Dr. Abiel Clement MANUAL DIFF REQ NO Normal [facility] Comment on above: Performed By: #### C BC ####[facility] Obcfvnqcvo7059 [place] [id number]. Abiel Clement MCH (RBC) [Entitic mass] 27.7 pg Normal 26.7-34.[address] [facility] Comment on above: Performed By: #### C BC ####[facility] Ntvendhalj6838 [place] [address]Dr. Abiel Clement MCHC (RBC) [Mass/Vol] 32.9 g/dL Normal 29.9-35.2 [facility] Comment on above: Performed By: #### C BC ####[facility] Pmdtvqvoiy3689 [place] [id number]. Abiel Urbano MCV (RBC) [Entitic vol] 84.2 fL Normal 81.0-99.0 [facility] Comment on above: Performed By: #### C BC ####[facility] Offmogchqx2715 [place] [address]Dr. Abiel Clement MONO # 0.4 103/ul Normal 0.3-0.8 [facility] Comment on above: Performed By: #### C BC ####[facility] Iltovmqxfk7596 [place], [place] [address]Zm. Abiel Clement Monocytes/100 WBC (Bld) 4.7 % Normal 1.7-12.0 [facility] Comment on above: Performed By: #### C BC ####[facility] Rcoottomau9186 [place] [id number]. Abiel Clement NEUT # 8.1 103/ul Critically high 1.4-6.5 [facility] Comment on above: Performed By: #### C BC ####[facility] Xzoufzgefp3537 [place] [address]Dr. Abiel Clement Neutrophils/100 WBC (Bld) 87.6 % Critically high 43.0-75.[address] [facility] Comment on above: Performed By: #### C BC ####[facility] Iwyeaxosqp4588 [place] [id number]. Abiel Clement Platelet mean volume (Bld) [Entitic vol] 10.5 fL Normal 9.5-13.[address] [facility] Comment on above: Performed By: #### C BC ####[facility] Kzsxbrevdu5747 [place] [id number]. Abiel Clement PLT 286 103/ul Normal 150-450 [facility] Comment on above: Performed By: #### C BC ####[facility] Ifqrlfwgbv8711 [place] [address]Dr. Abiel Clement RBC 4.48 106/ul Normal 4.20-5.40 [facility] Comment on above: Performed By: #### C BC ####[facility] Aydwohqdrt2044 [place] [id number]. Abiel Clement WBC 9.2 103/ul Normal 4.0-11.0 [facility] Comment on above: Performed By: #### C BC ####[facility] Gfmspzuavu8309 [place] [id number]. Abiel Clement CT ABD/PELV W CONon 08-04-20 CT ABD/PELV W CON Normal [facility] CT HEAD WO CONon 08-04-2022 CT HEAD WO CON Normal [facility] CULTURE BLOODon 08-04-2022 Microscopic examination of blood, culture Culture Observations: NO GROWTH AT 5 DAYS. Normal [facility] Comment on above: Performed By: #### B LDCX1 ####[facility] Gbjrvktbet1976 [place], [place] [address]Ar. Abiel Clement Performed By: #### B LDCX2 ####[facility] Eeyqlybdjs9250 [place] [id number]. Abiel Clement Covid-19 PCR (CVDTB)on 07-08 SARS-CoV-2 (COVID-19) RNA CLARIBEL+probe Ql (Unsp spec) Not detected Normal NOT DETECTED [facility] Comment on above: Result Comment: When [...] for this test is supported by the [place] of [employer] and Human Service's declaration that [...] be used). Performed By: #### C VDTBH ####[facility] Jckloraggx1168 [place], [place] [address]Nl. Abiel Clement DRUG SCREEN RAPID (URINE)on 08-04-2022 AMP Negative Normal NEGATIVE [facility] Comment on above: Performed By: #### D RUGRPD ####[facility] Pwthtzouee0198 [place], [place] [address]Or. Abiel Clement BAR Negative Normal NEGATIVE [facility] Comment on above: Performed By: #### D RUGRPD ####[facility] Qdexzmgssn[address] [place], [place] [address]Dr. Suyapaviviana Clement BUP Negative Normal NEGATIVE [facility] Comment on above: Performed By: #### D RUGRPD ####[facility] Bxxzlibrup7[address] [place], [place] [address]Dr. Abiel Clement BZO Negative Normal NEGATIVE [facility] Comment on above: Performed By: #### D RUGRPD ####[facility] Iphhuixkwe[address] [place], [place] [address]Dr. Abiel Clement CAROLINE Negative Normal NEGATIVE [facility] Comment on above: Performed By: #### D RUGRPD ####[facility] Ecbkmurfwk[address] [place], [place] [address]Dr. Abiel Clement CUT-OFFS SEE BELOW Normal [facility] Comment on above: Result Comment: AMP (Amphetamine): 500ng/mL, BAR (Barbituates): 200 ng/mL, BZO (Benzodiazepines): 150 ng/mL, BUP (Buprenorphine): 10 ng/mL, CAROLINE (Cocaine): 150 ng/mL, mAMP (Methamphetamine): 500 ng/mL, MTD (Methadone): 200 ng/mL, OPI (Opiates): 100 ng/mL, OXY (Oxycodone): 100 ng/mL, PCP (Phencyclidine): 25 ng/mL, PPX (Propoxyphene): 300 ng/mL, THC (Cannabinoids): 50 ng/mL, TCA (Trycyclic Antidepressants): 300 ng/mL Performed By: #### D RUGRPD ####[facility] Xivsclalcp04[address] [place], [place] [address]Dr. Abiel Clement DRUG CUT HEADER DRUG CLASS TEST SYSTEM CUT-OFF CONCENTRATIONS ARE FOLLOWS: Normal [facility] Comment on above: Performed By: #### D RUGRPD ####[facility] Wekaewicdl175[address] [place], [place] [address]Dr. Abiel Clement mAMP Negative Normal NEGATIVE [facility] Comment on above: Performed By: #### D RUGRPD ####[facility] Adgszifgqr93[address] [place], [place] [address]Dr. Abiel Clement MTD Negative Normal NEGATIVE [facility] Comment on above: Performed By: #### D RUGRPD ####[facility] Lfzqiticrj8190 [place] [address]Dr. Yiviviana Clement OPI Positive Abnormal NEGATIVE [facility] Comment on above: Performed By: #### D RUGRPD ####[facility] Owrpngunmw2764 [place] [address]Dr. Yilan Clement OXY Negative Normal NEGATIVE [facility] Comment on above: Performed By: #### D RUGRPD ####[facility] Jxqqamprhz8381 [place] [address]Dr. Yilan Clement PCP Negative Normal NEGATIVE [facility] Comment on above: Performed By: #### D RUGRPD ####[facility] Rtaltouswp[address] [place], [place] [address]Dr. Yilan Clement PPX Negative Normal NEGATIVE [facility] Comment on above: Performed By: #### D RUGRPD ####[facility] Jfltlbejpy63[address] [place], [place] [address]Dr. Yilan Clement TCA Negative Normal NEGATIVE [facility] Comment on above: Performed By: #### D RUGRPD ####[facility] [address]ajxmalwok[address] [place], [place] [address]Dr. Yilan Clement THC Negative Normal NEGATIVE [facility] Comment on above: Performed By: #### D RUGRPD ####[facility] Jbacvzchdx[address] [place], [place] [address]Dr. Abiel Clement ER URINE PROFILEon 2 Bilirubin Ql (U) Negative Normal NEGATIVE [facility] Comment on above: Performed By: #### NESSA ACE ####[facility] Cbveuvhkrt[address] [place], [place] [address]Dr. Suyapalan Clement Clarity (U) CLEAR Normal CLEAR [facility] Comment on above: Performed By: #### NESSA ACE ####[facility] Ahexxpxfji4862 [place] [address]Dr. Suyapalan Clement Color (U) LT. YELLOW Normal YELLOW [facility] Comment on above: Performed By: #### NESSA ACE ####[facility] Uvszlbfvhp5[address] [place], [place] [address]Dr. Abiel TORRESAHD A micrscopic examination will be performed if indicated. Normal [facility] Comment on above: Performed By: #### NESSA ACE ####[facility] Rjjcuphxhm9119 [place] [address]Dr. Abiel Clement Glucose Ql (U) Negative Normal NEGATIVE [facility] Comment on above: Performed By: #### NESSA ACE ####[facility] Kyrcmisxyh[address] [place], [place] [address]Dr. Abiel Clement Hemoglobin Ql (U) SMALL Abnormal NEGATIVE [facility] Comment on above: Performed By: #### NESSA ACE ####[facility] Pltyahmhgo045[address] [place], [place] [address]Dr. Abiel Clement Ketones Ql (U) Negative Normal NEGATIVE [facility] Comment on above: Performed By: #### CARLOS ACERO ####[facility] Rdlrtgbbqr840[address] [place], [place] [address]Dr. Abiel Clement LEUKOCYTES LARGE Abnormal NEGATIVE [facility] Comment on above: Performed By: #### NESSA ACE ####[facility] Qyackkduoy626[address] [place], [place] [address]Dr. Abiel Clement Nitrite Ql (U) Negative Normal NEGATIVE [facility] Comment on above: Performed By: #### NESSA ACE ####[facility] Nwyegqynwh84[address] [place], [place] [address]Dr. Abiel Clement pH (U) 5.0 [pH] Normal 5-9 [facility] Comment on above: Performed By: #### CARLOS ACERO ####[facility] Rodgoqdflf287[address] [place], [place] [address]Dr. Abiel Clement SPEC GRAVITY 1.020 Normal 1.005-<=1.[address] [facility] Comment on above: Performed By: #### NESSA ACE ####[facility] Ksyoplegit[address] [place], [place] [address]Dr. Abiel Clement UA PROTEIN Negative Normal NEGATIVE/ TRACE [facility] Comment on above: Performed By: #### E CARLOS GERMANRO ####[facility] Npqrmoyptm[address] [place], [place] [address]Dr. Abiel Clement UR MICRO IND INDICATED Normal [facility] Comment on above: Performed By: #### E CARLOS GERMANRO ####[facility] Anivytcrbo[address] [place], [place] [address]Dr. Abiel Urbano Urobilinogen Qn (U) 0.2 {Keegan'U}/dL Normal 0.2 - 1. [address] [facility] Comment on above: Performed By: #### E CARLOS GERMANRO ####[facility] Seazimkukk[address] [place], [place] [address]Dr. Abiel Clement ETHANOL (BLD ALC)on 08-04-20 22 ALC NOTE NOTE: 80 mg/dl is th e legal limit for a blood alcohol level Normal [facility] Comment on above: Performed By: #### E TH ####[facility] Edoerbrpoa[address] [place], [place] [address]Dr. Abiel Clement Ethanol [Mass/Vol] mg/dL Normal [facility] Comment on above: Performed By: #### E TH ####[facility] Wmcjawtnge[address] [place], [place] [address]Dr. Abiel Clement INFLUENZA A AND B AGon 08-04 INFLUANEGH SEE BELOW Normal [facility] Comment on above: Result Comment: Nega tive for Flu A protein angiten. Infection due to Flu A cannot be ruled out. Flu A angiten in the sample may be below the detection limit of the test. Performed By: #### I NFLUAB ####[facility] Kexmmtfr[address] [place], [place] [address]Dr. Abiel Clement INFLUBNEGH SEE BELOW Normal [facility] Comment on above: Result Comment: Nega tive for Flu B protein antigen. Infection due to Flu B cannot be ruled out. Flu B antigen in the sample may be below the detection limit of the test. Performed By: #### I NFLUAB ####[facility] Djksdmrbgv[address] [place], [place] [address]Dr. Abiel Clement INFLUENZA A AG Negative Normal NEGATIVE SEE COMMENT [facility] Comment on above: Performed By: #### I NFLUAB ####[facility] [address] [place] [address]Dr. Abiel Clement INFLUENZA B AG Negative Normal NEGATIVE SEE COMMENT [facility] Comment on above: Performed By: #### I NFLUAB ####[facility] [address]tstcekfhq[address] [place] [address]Dr. Abiel Clement INTERNAL CONTROLS Within Normal Limits Normal Wi thin Normal Limits [facility] Comment on above: Performed By: #### I NFLUAB ####[facility] [address]zb[address] [place] [address]Dr. Abiel Clement LACTATE/LACTIC ACIDon 2021 Lactate [Moles/Vol] 2.0 mmol/L Critically high 0.4-1.[address] [facility] Comment on above: Performed By: #### L ACT ####[facility] Suvdzzbugg[address] [place], [place] [address]Dr. Abiel Clement LIPASEon 08-04-2022 Lipase [Catalytic activity/Vol] 28.0 U/L Critically low 73.0-393.[address] [facility] Comment on above: Performed By: #### L IPA, CMP, HSTROPN, TSH ####[facility] [address] [place] [address]Dr. Abiel Clement PH VENOUS BLOODon 08-04-2022 PCO2 VENOUS 30.0 mmHg Critically low 40.0-52.0 [facility] Comment on above: Performed By: #### P HVEN ####[facility] [address]rmxsh[address] [place] [address]Dr. Abiel Clement pH VENOUS 7.509 Critically high 7.330-7.430 [facility] Comment on above: Performed By: #### P HVEN ####[facility] [address]mujurz[address] [place] [address]Dr. Abiel Clement POINT OF CARE GLUCOSEon 07-08 Glucose [Mass/Vol] 230 mg/dL Critically high 74-106 [facility] Comment on above: Performed By: #### P OCGLUC ####[facility] [address]cud[address] [place] [address]Dr. Abiel Clement PROF 14(COMP METB)on 022 Albumin [Mass/Vol] 3.0 g/dL Critically low 3.4-5.[address] [facility] Comment on above: Performed By: #### L IPA, CMP, HSTROPN, TSH ####[facility] [address]clns[address] [place] [address]Dr. Abiel Clement Albumin/Globulin [Mass ratio] 0.7 {ratio} Normal [facility] Comment on above: Performed By: #### L IPA, CMP, HSTROPN, TSH ####[facility] [address]hrdeg[address] [place] [address]Dr. Abiel Clement ALP [Catalytic activity/Vol] 196 U/L Critically high 46-[address] [facility] Comment on above: Performed By: #### L IPA, CMP, HSTROPN, TSH ####[facility] Efuqdjgrvn[address] [place] [address]Dr. Abiel Clement ALT [Catalytic activity/Vol] 21 U/L Normal 14-[address] [facility] Comment on above: Performed By: #### L IPA, CMP, HSTROPN, TSH ####[facility] Qmltauuayr[address] [place] [address]Dr. Abiel Clement Anion gap [Moles/Vol] 12.1 mmol/L Normal [facility] Comment on above: Performed By: #### L IPA, CMP, HSTROPN, TSH ####[facility] [address]zhcpqdact[address] [place] [address]Dr. Abiel Clement AST [Catalytic activity/Vol] 29 U/L Normal 15-[address] [facility] Comment on above: Performed By: #### L IPA, CMP, HSTROPN, TSH ####[facility] Wqiyj[address]bxe[address] [place] [address]Dr. Abiel Clement Bilirubin [Mass/Vol] 0.3 mg/dL Normal 0.2-1.[address] [facility] Comment on above: Performed By: #### L IPA, CMP, HSTROPN, TSH ####[facility] Xuwctzigdk[address] [place] [address]Dr. Abiel Clement Calcium [Mass/Vol] 8.9 mg/dL Normal 8.5-10.1 [facility] Comment on above: Performed By: #### L IPA, CMP, HSTROPN, TSH ####[facility] Urdm[address]lfpp[address] [place] [address]Dr. Abiel Clement Chloride [Moles/Vol] 102 mmol/L Normal 98-107 [facility] Comment on above: Performed By: #### L IPA, CMP, HSTROPN, TSH ####[facility] Agtmshqelf[address] [place], [place] [address]Dr. Abiel Clement CO2 [Moles/Vol] 27.1 mmol/L Normal 21.0-32.0 [facility] Comment on above: Performed By: #### L IPA, CMP, HSTROPN, TSH ####[facility] Bwnhhzvnuk[address] [place], [place] [address]Dr. Abiel Clement Creatinine [Mass/Vol] 0.83 mg/dL Normal 0.55-1.02 [facility] Comment on above: Performed By: #### L IPA, CMP, HSTROPN, TSH ####[facility] Afkutcbjcj[address] [place], [place] [address]Dr. Abiel Clement EGFR-AF PALAUAN >60 Normal >=60 [facility] Comment on above: Performed By: #### L IPA, CMP, HSTROPN, TSH ####[facility] [address]oz[address] [place] [address]Dr. Abiel Clement EGFR-NON AF PALAUAN >60 Normal >=60 [facility] Comment on above: Performed By: #### L IPA, CMP, HSTROPN, TSH ####[facility] Euq[address]xpln[address] [place] [address]Dr. Abiel Clement Globulin (S) [Mass/Vol] 4.2 g/dL Normal [facility] Comment on above: Performed By: #### L IPA, CMP, HSTROPN, TSH ####[facility] U[address]tf[address]ou[address] [place] [address]Dr. Abiel Clement Glucose [Mass/Vol] 132 mg/dL Critically high 74-106 T [facility] Comment on above: Performed By: #### L IPA, CMP, HSTROPN, TSH ####[facility] [address]whijc[address] [place] [address]Dr. Abiel Clement Potassium [Moles/Vol] 4.2 mmol/L Normal 3.5-5.[address] [facility] Comment on above: Performed By: #### L IPA, CMP, HSTROPN, TSH ####[facility] [address]oyxx[address]vsd[address] [place] [address]Dr. Abiel Clement Protein [Mass/Vol] 7.2 g/dL Normal 6.4-8.[address] [facility] Comment on above: Performed By: #### L IPA, CMP, HSTROPN, TSH ####[facility] [address]uhdccie[address] [place] [address]Dr. Abiel Clement Sodium [Moles/Vol] 137 mmol/L Normal 136-[address] [facility] Comment on above: Performed By: #### L IPA, CMP, HSTROPN, TSH ####[facility] [address]izsqduovm[address] [place] [address]Dr. Abiel Clement Urea nitrogen [Mass/Vol] 18.0 mg/dL Normal 7.0-18.0 [facility] Comment on above: Performed By: #### L IPA, CMP, HSTROPN, TSH ####[facility] [address]ntd[address] [place] [address]Dr. Abiel Clement Urea nitrogen/Creatinine [Mass ratio] 21.7 mg/mg Normal [facility] Comment on above: Performed By: #### L IPA, CMP, HSTROPN, TSH ####[facility] [address]flc[address] [place] [address]Dr. Abiel Clement PROTIMEon 08-04-2022 INR Coag (PPP) [Relative time] 1.05 {INR} Normal [facility] Comment on above: Performed By: #### P TT, PT ####[facility] [address] [place] [id number]. Abiel Clement INR GUIDELINES SEE BELOW Normal [facility] Comment on above: Result Comment: GELY RED INR: 2.0 - 3.0 CONDITIONS NOT LISTED BELOW 2.5 - 3.5 FOR PROSTHETIC HEART VALVE REPLACEMENT 2.5 - 3.5 RECURRENT THROMBOSIS Performed By: #### P TT, PT ####[facility] [address]ibc[address] [place] [address]Dr. Abiel Clement PT Coag (PPP) [Time] 11.3 s Normal 9.0-11.6 [facility] Comment on above: Performed By: #### P TT, PT ####[facility] Sdbfwxtyrl[address] [place] [address]Dr. Abiel Clement PTTon 08-04-2022 aPTT Coag (Bld) [Time] 25.2 s Normal 22.3-36.2 [facility] Comment on above: Performed By: #### P TT, PT ####[facility] Enbkipnrxj[address] [place], [place] [address]Dr. Abiel Clement TROPONIN, HIGH SENSITIVITYon 08-04-2022 HSTROP 5.0 pg/mL Normal 4.0-51.3 [facility] Comment on above: Result Comment: CUT- OFF POINTS HAVE BEEN ESTABLISHED BASED ON THE FOURTH UNIVERSAL DEFINITIONS OF MYOCARDIALINFARCTION. THE UPPER REFERENCE LIMIT (URL) OF TROPONIN, DEFINED THE 99TH PERCENTILE OFcTnI DISTRIBUTION IN A REFERENCE POPULATION, HAS BEEN CONFIRMED THE DECISION THRESHOLDFOR [place] DIAGNOSIS. Performed By: #### L IPA, CMP, HSTROPN, TSH ####[facility] [address] [place] [id number]. Abiel Clement TSHon 08-04-2022 TSH 1.695 uIU/mL Normal 0.358-3.740 [facility] Comment on above: Performed By: #### L IPA, CMP, HSTROPN, TSH ####[facility] [address]vow[address] [place] [address]Dr. Abiel Clement URINE MICROSCOPIC ONLYon BACTERIA MODERATE Abnormal NONE SEEN [facility] Comment on above: Performed By: #### Krystle GERMAN UMICRO ####[facility] Muggwvbzro[address] [place], [place] [address]Dr. Abiel Clement Bacteria identified Cx Nom (U) INDICATED Normal [facility] Comment on above: Performed By: #### Krystle GERMAN UMBELGICARO ####[facility] Oqyofmmuqj[address] [place], [place] [address]Dr. Abiel Clement CAST NONE SEEN Normal NONE SEEN [facility] Comment on above: Performed By: #### Krystle GREMAN UMICRO ####[facility] [address]seuey[address] [place] [address]Dr. Abiel Clement Crystals LM Nom (Urine sed) NONE SEEN Normal NONE SEEN [facility] Comment on above: Performed By: #### Krystle GERMAN UMICRO ####[facility] Deudrslizh[address] [place], [place] [address]Dr. Abiel Clement Epithelial cells LM Ql (Urine sed) FEW Abnormal NONE SEEN /RARE [facility] Comment on above: Performed By: #### Krystle GERMAN UMICRO ####[facility] Xaeyjrdsol[address] [place], [place] [address]Dr. Abiel Clement MUCOUS NONE SEEN Normal NONE SEEN [facility] Comment on above: Performed By: #### CARLOS ACERO ####[facility] Zftuazutfn[address] [place], [place] [address]Dr. Abiel Clement RBC 2-5 Abnormal 0-2 [facility] Comment on above: Performed By: #### CARLOS ACERO ####[facility] Fkgwuwjakx[address] [place], [place] [address]Dr. Abiel Clement WBC 10-20 Abnormal NONE SEEN [facility] Comment on above: Performed By: #### CARLOS ACERO ####[facility] Nrffdvlvzl[address] [place], [place] [address]Dr. Abiel Clement XR CHEST 1 Von 08-04-2022 XR CHEST 1 V Normal [facility] XR FOOT RT MIN 3 VIEWSon XR FOOT RT MIN 3 VIEWS Normal [facility] CBC AUTO DIFFon 06-03-2022 BASO # 0.0 103/ul Normal 0.0-0.1 [facility] Comment on above: Performed By: #### C BC ####[facility] [address]ef[address]rmt[address] [place] [address]Dr. Abiel Clement Basophils/100 WBC (Bld) 0.5 % Normal 0.2-2.0 [facility] Comment on above: Performed By: #### C BC ####[facility] K[address]kxmprtuy[address] [place], [place] [address]Dr. Abiel Clement EO # 0.3 103/ul Normal 0.0-0.7 [facility] Comment on above: Performed By: #### C BC ####[facility] Fdasqqzoyw[address] [place], [place] [address]Dr. Abiel Clement Eosinophils/100 WBC (Bld) 3.5 % Normal 0.9-7.0 [facility] Comment on above: Performed By: #### C BC ####[facility] [address]pncwrsmqi[address] [place], [place] [address]Dr. Abiel Clement Erythrocyte distribution width (RBC) [Ratio] 13.7 % Normal 11.0-15.0 [facility] Comment on above: Performed By: #### C BC ####[facility] Vquankraug[address] [place], [place] [address]Dr. Abiel Clement Hematocrit (Bld) [Volume fraction] 34.2 % Critically low 36.0-48.0 [facility] Comment on above: Performed By: #### C BC ####[facility] Owlwizbqpq[address] [place], [place] [address]Dr. Abiel Clement Hemoglobin (Bld) [Mass/Vol] 10.5 g/dL Critically low 12.0-16.0 [facility] Comment on above: Performed By: #### C BC ####[facility] Qzsjtejexo[address] [place], [place] [address]Dr. Suyapaviviana Clement IG # 0.02 10e3/ul Normal 0.00-0.03 [facility] Comment on above: Performed By: #### C BC ####[facility] [address]sp[address]vxl[address] [place] [address]Dr. Abiel Clement IG % 0.3 % Normal 0.0-0.5 [facility] Comment on above: Performed By: #### C BC ####[facility] Axvzufokxq[address] [place], [place] [address]Dr. Abiel Clement LYMPH # 1.4 103/ul Normal 1.2-3.8 [facility] Comment on above: Performed By: #### C BC ####[facility] Qppwhaynkv[address] [place], [place] [address]Dr. Abiel Clement Lymphocytes/100 WBC (Bld) 18.5 % Critically low 20.5-60.0 [facility] Comment on above: Performed By: #### C BC ####[facility] Fxetvtauoq[address] [place], [place] [address]Dr. Abiel Clement MANUAL DIFF REQ NO Normal [facility] Comment on above: Performed By: #### C BC ####[facility] V[address]jhqomawf[address] [place] [address]Dr. Suyapaviviana Clement MCH (RBC) [Entitic mass] 27.8 pg Normal 26.7-34.0 [facility] Comment on above: Performed By: #### C BC ####[facility] Sfbtxrnrzj[address] [place], [place] [address]Dr. Abiel Urbano MCHC (RBC) [Mass/Vol] 30.7 g/dL Normal 29.9-35.2 [facility] Comment on above: Performed By: #### C BC ####[facility] Nnwxmrssfe[address] [place], [place] [address]DrKasia Clement MCV (RBC) [Entitic vol] 90.5 fL Normal 81.0-99.0 [facility] Comment on above: Performed By: #### C BC ####[facility] Hntfcklqie[address] [place], [place] [address]DrKasia Clement MONO # 0.7 103/ul Normal 0.3-0.8 [facility] Comment on above: Performed By: #### C BC ####[facility] Wvjcwjcgyg[address] [place], [place] [address]Dr. Abiel Clement Monocytes/100 WBC (Bld) 8.5 % Normal 1.7-12.0 [facility] Comment on above: Performed By: #### C BC ####[facility] Natguiklzh[address] [place] [address]Dr. Abiel Clement NEUT # 5.2 103/ul Normal 1.4-6.[address] [facility] Comment on above: Performed By: #### C BC ####[facility] Jhvbvdqdmy[address] [place] [address]Dr. Abiel Clement Neutrophils/100 WBC (Bld) 68.7 % Normal 43.0-75.0 [facility] Comment on above: Performed By: #### C BC ####[facility] Qhbpyydgtb[address] [place] [address]Dr. Abiel Clement Platelet mean volume (Bld) [Entitic vol] 11.0 fL Normal 9.5-13.[address] [facility] Comment on above: Performed By: #### C BC ####[facility] Zvpwosmhnu[address] [place] [address]Dr. Abiel Clement PLT 249 103/ul Normal 150-450 [facility] Comment on above: Performed By: #### C BC ####[facility] Enmihhjelo[address] [place] [address]Dr. Abiel Clement RBC 3.78 106/ul Critically low 4.20-5.40 [facility] Comment on above: Performed By: #### C BC ####[facility] P[address]merbhoi[address] [place] [address]Dr. Abiel Clement WBC 7.6 103/ul Normal 4.0-11.0 [facility] Comment on above: Performed By: #### C BC ####[facility] Xfpdvqwnga[address] [place] [address]Dr. Abiel Clement POINT OF CARE GLUCOSEon - Glucose [Mass/Vol] 84 mg/dL Normal 74-106 [facility] Comment on above: Performed By: #### P OCGLUC ####[facility] Cecxjtmnru[address] [place], [place] [address]Dr. Suyapaviviana Urbano Glucose [Mass/Vol] 49 mg/dL Critically low 74-106 Th [facility] Comment on above: Result Comment: Will Repeat Test Performed By: #### P OCGLUC ####[facility] [address]twbznvgcc[address] [place] [address]Dr. Suyapaviviana Clement Glucose [Mass/Vol] 182 mg/dL Critically high 74-106 T [facility] Comment on above: Performed By: #### P OCGLUC ####[facility] Zdsxoxkrph[address] [place] [address]Dr. Abiel Clement PROF CHEM 8 (BAS METB)on Anion gap [Moles/Vol] 8.5 mmol/L Normal [facility] Comment on above: Performed By: #### B MP ####[facility] Ztumxrdrwo[address] [place], [place] [address]Dr. Abiel Clement Calcium [Mass/Vol] 9.2 mg/dL Normal 8.5-10.1 [facility] Comment on above: Performed By: #### B MP ####[facility] [address]msqrsbmdi[address] [place], [place] [address]Dr. Abiel Clement Chloride [Moles/Vol] 99 mmol/L Normal 98-[address] [facility] Comment on above: Performed By: #### B MP ####[facility] [address]jlvtwahxi[address] [place], [place] [address]Dr. Abiel Clement CO2 [Moles/Vol] 29.5 mmol/L Normal 21.0-32.0 [facility] Comment on above: Performed By: #### B MP ####[facility] [address]wqxklnomr[address] [place], [place] [address]Dr. Abiel Clement Creatinine [Mass/Vol] 0.97 mg/dL Normal 0.55-1.[address] [facility] Comment on above: Performed By: #### B MP ####[facility] Bxvfbnipcu[address] [place], [place] [address]Dr. Abiel Clement EGFR-AF PALAUAN >60 Normal >=60 [facility] Comment on above: Performed By: #### B MP ####[facility] [address]azcxlrb[address] [place] [address]Dr. Abiel Clement EGFR-NON AF PALAUAN 58 mL/min/1.73m2 Critically low >=[address] [facility] Comment on above: Performed By: #### B MP ####[facility] [address]nqbuibkn[address] [place] [address]Dr. Abiel Clement Glucose [Mass/Vol] 193 mg/dL Critically high 74-106 T [facility] Comment on above: Performed By: #### B MP ####[facility] Rftffgfezf[address]188 [place] [address]Dr. Abiel Clement Potassium [Moles/Vol] 4.0 mmol/L Normal 3.5-5.[address] [facility] Comment on above: Performed By: #### B MP ####[facility] Wgxhuqkdcp[address] [place] [address]Dr. Abiel Clement Sodium [Moles/Vol] 133 mmol/L Critically low 136-145 Th [facility] Comment on above: Performed By: #### B MP ####[facility] Lcfofgdgox[address] [place], [place] [address]Dr. Abiel Clement Urea nitrogen [Mass/Vol] 20.0 mg/dL Critically high 7.0-18.[address] [facility] Comment on above: Performed By: #### B MP ####[facility] [address]hyxvqkf[address] [place], [place] [address]Dr. Abiel Clement Urea nitrogen/Creatinine [Mass ratio] 20.6 mg/mg Normal [facility] Comment on above: Performed By: #### B MP ####[facility] Hrynyiitrl[address] [place] [address]Dr. Abiel Clement POINT OF CARE GLUCOSEon 05-07 Glucose [Mass/Vol] 62 mg/dL Critically low 74-106 Th [facility] Comment on above: Performed By: #### P OCGLUC ####[facility] Kfzgkhqzwu7[address] [place] [id number]. Abiel Clement Glucose [Mass/Vol] 75 mg/dL Normal 74-106 [facility] Comment on above: Performed By: #### P OCGLUC ####[facility] Ciejgransb8745 [place] [id number]. Abiel Clement Glucose [Mass/Vol] 83 mg/dL Normal 74-106 [facility] Comment on above: Performed By: #### P OCGLUC ####[facility] Qxntzegsvz4397 [place] [id number]. Abiel Clement Glucose [Mass/Vol] 107 mg/dL Critically high 74-106 [facility] Comment on above: Performed By: #### P OCGLUC ####[facility] Kboqgyvfpc[address] [place] [address]Dr. Suyapalan Clement Glucose [Mass/Vol] 140 mg/dL Critically high 74-106 [facility] Comment on above: Performed By: #### P OCGLUC ####[facility] Uqkocvnzzj[address] [place], [place] [address]Dr. Abiel Clement CBC AUTO DIFFon 06-01-2022 BASO # 0.0 103/ul Normal 0.0-0.[address] [facility] Comment on above: Performed By: #### C BC ####[facility] Yrkefbbasz[address] [place], [place] [address]Dr. Abiel Clement Basophils/100 WBC (Bld) 0.3 % Normal 0.2-2.[address] [facility] Comment on above: Performed By: #### C BC ####[facility] Hgdwyeipob[address] [place], [place] [address]Dr. Abiel Clement EO # 0.2 103/ul Normal 0.0-0.[address] [facility] Comment on above: Performed By: #### C BC ####[facility] Bluxijdzlu[address] [place], [place] [address]Dr. Abiel Clement Eosinophils/100 WBC (Bld) 1.9 % Normal 0.9-7.0 [facility] Comment on above: Performed By: #### C BC ####[facility] Mrjitwsmzc[address] [place], [place] [address]Dr. Abiel Clement Erythrocyte distribution width (RBC) [Ratio] 13.8 % Normal 11.0-15.[address] [facility] Comment on above: Performed By: #### C BC ####[facility] [address]utnuuxgjv[address] [place] [address]Dr. Suyapaviviana Clement Hematocrit (Bld) [Volume fraction] 37.7 % Normal 36.0-48.[address] [facility] Comment on above: Performed By: #### C BC ####[facility] [address]nyffmcacw[address] [place] [address]Dr. Abiel Clement Hemoglobin (Bld) [Mass/Vol] 11.7 g/dL Critically low 12.0-16.0 [facility] Comment on above: Performed By: #### C BC ####[facility] Prryzavuik[address] [place], [place] [address]Dr. Abiel Clement IG # 0.03 10e3/ul Normal 0.00-0.[address] [facility] Comment on above: Performed By: #### C BC ####[facility] Thwogupecn[address] [place], [place] [address]Dr. Abiel Clement IG % 0.3 % Normal 0.0-0.5 [facility] Comment on above: Performed By: #### C BC ####[facility] Tnpjgqirxd[address] [place], [place] [address]Dr. Abiel Clement LYMPH # 1.1 103/ul Critically low 1.2-3.8 [facility] Comment on above: Performed By: #### C BC ####[facility] Izyjrucaxm[address] [place], [place] [address]Dr. Abiel Clement Lymphocytes/100 WBC (Bld) 12.0 % Critically low 20.5-60.0 [facility] Comment on above: Performed By: #### C BC ####[facility] Apnowtbwdk413[address] [place], [place] [address]Dr. Abiel Clement MANUAL DIFF REQ NO Normal The [facility] Comment on above: Performed By: #### C BC ####[facility] [address]ymvjy[address] [place] [address]Dr. Abiel Clement MCH (RBC) [Entitic mass] 27.9 pg Normal 26.7-34.0 [facility] Comment on above: Performed By: #### C BC ####[facility] Smevkrevaw[address] [place] [id number]. Abiel Urbano MCHC (RBC) [Mass/Vol] 31.0 g/dL Normal 29.9-35.2 [facility] Comment on above: Performed By: #### C BC ####[facility] Dveooniica8096 [place] [id number]. Abiel Clement MCV (RBC) [Entitic vol] 89.8 fL Normal 81.0-99.0 [facility] Comment on above: Performed By: #### C BC ####[facility] Jkkqledebm5[address] [place], [place] [address]Dr. Abiel Clement MONO # 0.7 103/ul Normal 0.3-0.8 [facility] Comment on above: Performed By: #### C BC ####[facility] Hdzeqphlwx47[address] [place], [place] [address]Dr. Abiel Clement Monocytes/100 WBC (Bld) 8.0 % Normal 1.7-12.0 [facility] Comment on above: Performed By: #### C BC ####[facility] Mqpasrphtg326[address] [place], [place] [address]Dr. Abiel Clement NEUT # 6.9 103/ul Critically high 1.4-6.5 [facility] Comment on above: Performed By: #### C BC ####[facility] Bmntpcddyp[address] [place], [place] [address]Dr. Abiel Clement Neutrophils/100 WBC (Bld) 77.5 % Critically high 43.0-75.0 [facility] Comment on above: Performed By: #### C BC ####[facility] Llpcrmrufz[address] [place], [place] [address]Dr. Abiel Clement Platelet mean volume (Bld) [Entitic vol] 11.1 fL Normal 9.5-13.5 [facility] Comment on above: Performed By: #### C BC ####[facility] Xoisnjwfuz[address] [place], [place] [address]Dr. Abiel Clement PLT 276 103/ul Normal 150-450 [facility] Comment on above: Performed By: #### C BC ####[facility] Uvpvaeohhc9358 [place] [address]Dr. Abiel Clement RBC 4.20 106/ul Normal 4.20-5.[address] [facility] Comment on above: Performed By: #### C BC ####[facility] Xtzihqkzag5862 [place] [id number]. Abiel Clement WBC 8.9 103/ul Normal 4.0-11.[address] [facility] Comment on above: Performed By: #### C BC ####[facility] Mkihxzjcgi[address]990 [place] [address]Dr. Abiel Clement POINT OF CARE GLUCOSEon 05-07 Glucose [Mass/Vol] 121 mg/dL Critically high 74-106 [facility] Comment on above: Performed By: #### P OCGLUC ####[facility] Snbuisnfmf[address] [place] [address]Dr. Abiel Clement Glucose [Mass/Vol] 303 mg/dL Critically high 74-106 [facility] Comment on above: Performed By: #### P OCGLUC ####[facility] Spdbhmspug[address] [place] [address]Dr. Abiel Clement PROF 14(COMP METB)on 022 Albumin [Mass/Vol] 2.8 g/dL Critically low 3.4-5.0 Th [facility] Comment on above: Performed By: #### C MP ####[facility] Wnwmcxjbww9280 [place] [address]Dr. Abiel Clement Albumin/Globulin [Mass ratio] 0.7 {ratio} Normal [facility] Comment on above: Performed By: #### C MP ####[facility] Tniezmfrly[address] [place] [address]Dr. Abiel Clement ALP [Catalytic activity/Vol] 174 U/L Critically high 46-[address] [facility] Comment on above: Performed By: #### C MP ####[facility] Nlmztjrmmo4974 [place] [address]Dr. Abiel Clement ALT [Catalytic activity/Vol] 14 U/L Normal 14-[address] [facility] Comment on above: Performed By: #### C MP ####[facility] Iowxvhszem79[address] [place] [id number]. Abiel Clement Anion gap [Moles/Vol] 14.2 mmol/L Normal Th [facility] Comment on above: Performed By: #### C MP ####[facility] Ypvcvzxtbp4441 [place] [id number]. Abiel Clement AST [Catalytic activity/Vol] 13 U/L Critically low 15-[address] [facility] Comment on above: Performed By: #### C MP ####[facility] Vmbfxecxvz5342 [place] [id number]. Abiel Clement Bilirubin [Mass/Vol] 0.1 mg/dL Critically low 0.2-1.[address] [facility] Comment on above: Performed By: #### C MP ####[facility] Toqhmffdts64[address] [place], [place] [address]Dr. Abiel Urbano Calcium [Mass/Vol] 8.9 mg/dL Normal 8.5-10.1 [facility] Comment on above: Performed By: #### C MP ####[facility] Hrwqovervs[address] [place], [place] [address]Dr. Abiel Urbano Chloride [Moles/Vol] 99 mmol/L Normal 98-[address] [facility] Comment on above: Performed By: #### C MP ####[facility] Ljsktoqdwv6644 [place] [address]Dr. Abiel Urbano CO2 [Moles/Vol] 27.1 mmol/L Normal 21.0-32.0 [facility] Comment on above: Performed By: #### C MP ####[facility] Klotijzsql[address] [place] [address]Dr. Abiel Clement Creatinine [Mass/Vol] 1.19 mg/dL Critically high 0.55-1.[address] [facility] Comment on above: Performed By: #### C MP ####[facility] Nmuuttpbyq49[address] [place] [address]Dr. Abiel Urbano EGFR-AF PALAUAN 56 mL/min/1.73m2 Critically low >=60 [facility] Comment on above: Performed By: #### C MP ####[facility] Qcjrajaqij1282 [place] [id number]. Abiel Clement EGFR-NON AF PALAUAN 46 mL/min/1.73m2 Critically low >=[address] [facility] Comment on above: Performed By: #### C MP ####[facility] Rtrqhpksqy2783 [place] [id number]. Abiel Clement Globulin (S) [Mass/Vol] 4.0 g/dL Normal [facility] Comment on above: Performed By: #### C MP ####[facility] Bvqpcwadye3841 [place] [id number]. Abiel Clement Glucose [Mass/Vol] 148 mg/dL Critically high 74-106 T [facility] Comment on above: Performed By: #### C MP ####[facility] Mhoxryqdbe8403 [place] [id number]. Abiel Urbano Potassium [Moles/Vol] 4.3 mmol/L Normal 3.5-5.[address] [facility] Comment on above: Performed By: #### C MP ####[facility] Pwtdkvjzse9420 [place] [id number]. Abiel Clement Protein [Mass/Vol] 6.8 g/dL Normal 6.4-8.2 [facility] Comment on above: Performed By: #### C MP ####[facility] Nvmeottonr6120 [place] [id number]. Abiel Clement Sodium [Moles/Vol] 136 mmol/L Normal 136-[address] [facility] Comment on above: Performed By: #### C MP ####[facility] Urvimbglbl8887 [place] [id number]. Abiel Clement Urea nitrogen [Mass/Vol] 25.0 mg/dL Critically high 7.0-18.[address] [facility] Comment on above: Performed By: #### C MP ####[facility] Sitrciyciz6241 [place] [id number]. Abiel Clement Urea nitrogen/Creatinine [Mass ratio] 21.0 mg/mg Normal [facility] Comment on above: Performed By: #### C MP ####[facility] Pqepiwnkyy9[address] [place] [address]Dr. Abiel Clement XR CHEST 1 Von 06-01-2022 XR CHEST 1 V Normal [facility] POINT OF CARE GLUCOSEon 05-07 Glucose [Mass/Vol] 195 mg/dL Critically high 74-106 [facility] Comment on above: Performed By: #### P OCGLUC ####[facility] Eevudlmtvb27[address] [place] [address]Dr. Abiel Clement Glucose [Mass/Vol] 236 mg/dL Critically high -106 [facility] Comment on above: Performed By: #### P OCGLUC ####[facility] Needgbraks[address] [place], [place] [address]Dr. Abiel Clement Glucose [Mass/Vol] 169 mg/dL Critically high -106 [facility] Comment on above: Performed By: #### P OCGLUC ####[facility] Drcxjzrzbp7187 [place] [address]Dr. Abiel Clement Glucose [Mass/Vol] 162 mg/dL Critically high [facility]106 [facility] Comment on above: Performed By: #### P OCGLUC ####[facility] Wnmddrlfuu[address] [place], [place] [address]Dr. Abiel Clement XR FOOT RT MIN 3 VIEWSon XR FOOT RT MIN 3 VIEWS Normal [facility] Covid-19 PCR (CVDTB)on 05-07 SARS-CoV-2 (COVID-19) RNA CLARIBEL+probe Ql (Unsp spec) Not detected Normal NOT DETECTED [facility] Comment on above: Result Comment: This test is not yet approved or cleared by the [place] FDA. When there are no FDA-approved or cleared tests available, and other criteria are met, FDA can make tests available under an emergency access mechanism called an Emergency Use Authorization (EUA). The EUA for this test is supported by the [employer] [place] of Health and Human Service's (HHS's) declaration [...] with SARS-CoV-2. Performed By: #### C VDTB ####[facility] Csmatsegkv7452 [place] [address]Dr. Abiel Clement PROF CHEM 8 (BAS METB)on Anion gap [Moles/Vol] 11.8 mmol/L Normal [facility] Comment on above: Performed By: #### B MP ####[facility] Qsynygqrrk[address] [place], [place] [address]Dr. Abiel Clement Calcium [Mass/Vol] 9.1 mg/dL Normal 8.5-10.1 [facility] Comment on above: Performed By: #### B MP ####[facility] Lrhmkdxgsp455[address] [place], [place] [address]Dr. Abiel Clement Chloride [Moles/Vol] 104 mmol/L Normal 98-[address] [facility] Comment on above: Performed By: #### B MP ####[facility] Wlvwwbdyfo05[address] [place], [place] [address]Dr. Abiel Clement CO2 [Moles/Vol] 27.6 mmol/L Normal 21.0-32.0 [facility] Comment on above: Performed By: #### B MP ####[facility] Zdbnxqhfzq1464[address] [place], [place] [address]Dr. Abiel Clement Creatinine [Mass/Vol] 0.89 mg/dL Normal 0.55-1.[address] [facility] Comment on above: Performed By: #### B MP ####[facility] Wilkuyxpwh[address] [place], [place] [address]Dr. Abiel Clement EGFR-AF PALAUAN >60 Normal >=60 [facility] Comment on above: Performed By: #### B MP ####[facility] Laeclldmue8336 [place] [id number]. Abiel Clement EGFR-NON AF PALAUAN >60 Normal >=60 [facility] Comment on above: Performed By: #### B MP ####[facility] Euujgafjgg7868 [place] [address]Dr. Suyapaviviana Clement Glucose [Mass/Vol] 83 mg/dL Normal 74-[address] [facility] Comment on above: Performed By: #### B MP ####[facility] Izxtqeyomm3458 [place] [id number]. Suyapaviviana Clement Potassium [Moles/Vol] 4.4 mmol/L Normal 3.5-5.1 [facility] Comment on above: Performed By: #### B MP ####[facility] Xzvywqasiv7156 [place] [address]Dr. Abiel Clement Sodium [Moles/Vol] 139 mmol/L Normal 136-[address] [facility] Comment on above: Performed By: #### B MP ####[facility] Psqduwbyhq9781 [place] [address]Dr. Abiel Clement Urea nitrogen [Mass/Vol] 18.0 mg/dL Normal 7.0-18.0 [facility] Comment on above: Performed By: #### B MP ####[facility] Vqjnmyjkce6291 [place] [address]Dr. Abeil Clement Urea nitrogen/Creatinine [Mass ratio] 20.2 mg/mg Normal [facility] Comment on above: Performed By: #### B MP ####[facility] Sovqyjteiw74[address] [place], [place] [address]Dr. Abiel Urbano CT CSPINE WO CONon 2 CT CSPINE WO CON Normal [facility] CT HEAD WO CONon 05-19-2022 CT HEAD WO CON Normal [facility] XR HIP RT 2 3V W PELVISon XR HIP RT 2 3V W PELVIS Normal [facility] CT FOOT RT WO CONon 05-13-20 CT FOOT RT WO CON Normal [facility] BLOOD CULTURE ID PANELon A. baumannii Not detected Normal NOT DETECTED [facility] Comment on above: Performed By: #### B CID2 ####[facility] Rbuacludtt8928 [place] [id number]. Yiviviana Clement Bacteriodes fragilis Not detected Normal NOT DETECTED [facility] Comment on above: Performed By: #### B CID2 ####[facility] Gjhwwqdxww4443 [place] [id number]. Yilan Clement BCID CONTROLS PASSED Normal [facility] Comment on above: Performed By: #### B CID2 ####[facility] Ugcjcpsmzo8038 [place] [id number]. Yiviviana Clement BCIDBTHD BLOOD CULTURE BOTTLE INFORMATION Normal [facility] Comment on above: Performed By: #### B CID2 ####[facility] Qlhrwagusx5813 [place] [address]Dr. Yiviviana Clement BCIDHD1 ANTIMICROBIAL RESISTANCE GENES [facility] Comment on above: Performed By: #### B CID2 ####[facility] Cnhsnvphga8846 [place] [address]Dr. Yilan Clement BCIDHD2 SEE BELOW [facility] Comment on above: Result Comment: Note : Antimicrobial resitance can occur via multiple mechanisms. A Not Detected result for the [employer] antomicrobial resistance gene assays does not indicate antimicrobial susceptibility. Subculturing is required for species identification and susceptibility testing of isolates. Performed By: #### B CID2 ####[facility] Nwcorsyebm4281 [place] [address]Dr. Abiel Clement BCIDHD3 Positive [facility] Comment on above: Performed By: #### B CID2 ####[facility] Vuomjesjrt7719 [place] [address]Dr. Yilan Clement BCIDHD4 Negative Normal [facility] Comment on above: Performed By: #### B CID2 ####[facility] Adsbnsjaoa5837 [place] [address]Dr. Yiviivana Clement BCIDHD5 YEAST Normal [facility] Comment on above: Performed By: #### B CID2 ####[facility] Ndzlzqqegi377[address] [place], [place] [address]Dr. Yilan Clement Bottle Set: Set 1 Normal [facility] Comment on above: Performed By: #### B CID2 ####[facility] Eorxnktiyc8214 [place] [address]Dr. Abiel Clement Bottle: Aerobic Normal [facility] Comment on above: Performed By: #### B CID2 ####[facility] Yiczydbvzg[address] [place], [place] [address]Dr. Abiel Clement C. neoformans/gattii Not detected Normal NOT DETECTED [facility] Comment on above: Performed By: #### B CID2 ####[facility] Tkyanzkagy17[address] [place], [place] [address]Dr. Abiel Clement Sakshi albicans Not detected Normal NOT DETECTED [facility] Comment on above: Performed By: #### B CID2 ####[facility] Tawanzubwb7[address] [place], [place] [address]Dr. Abiel Clement Sakshi auris Not detected Normal NOT DETECTED [facility] Comment on above: Performed By: #### B CID2 ####[facility] Aouiqxuxmq290[address] [place], [place] [address]Dr. Abiel Clement Sakshi glabrata Not detected Normal NOT DETECTED [facility] Comment on above: Performed By: #### B CID2 ####[facility] Alobkhwyae9916[address] [place], [place] [address]Dr. Abiel Clement Sakshi Krusei Not detected Normal NOT DETECTED [facility] Comment on above: Performed By: #### B CID2 ####[facility] Wlzjtpbgwv[address] [place], [place] [address]Dr. Abiel Clement Sakshi Parapsilosis Not detected Normal NOT DETECTED [facility] Comment on above: Performed By: #### B CID2 ####[facility] Tpbflvtcqa377[address] [place], [place] [address]Dr. Abiel Clement Sakshi Tropicalis Not detected Normal NOT DETECTED [facility] Comment on above: Performed By: #### B CID2 ####[facility] Xhmgqmojua60[address] [place], [place] [address]Dr. Abiel Clement CTX-M Resistant Gene Not Applicable Normal NOT DETECTE D [facility] Comment on above: Performed By: #### B CID2 ####[facility] Lnpfadsots4685 [place] [address]Dr. Abiel Clement E. Cloacae complex Not detected Normal NOT DETECTED [facility] Comment on above: Performed By: #### B CID2 ####[facility] Nmdmsgidgl6017 [place] [address]Dr. Abiel Clement E. faecalis Not detected Normal NOT DETECTED [facility] Comment on above: Performed By: #### B CID2 ####[facility] Xwvppbxxum78[address] [place], [place] [address]Dr. Abiel Clement E. faecium Not detected Normal NOT DETECTED [facility] Comment on above: Performed By: #### B CID2 ####[facility] Skzeqmkcuu979[address] [place], [place] [address]Dr. Abiel Clement Enterobacteriaceae Not detected Normal NOT DETECTED [facility] Comment on above: Performed By: #### B CID2 ####[facility] Jvtkmrwsjt368[address] [place], [place] [address]Dr. Abiel Clement Escherichia coli Not detected Normal NOT DETECTED [facility] Comment on above: Performed By: #### B CID2 ####[facility] Gshgpilyel116[address] [place], [place] [address]Dr. Abiel Clement H. influenzae Not detected Normal NOT DETECTED [facility] Comment on above: Performed By: #### B CID2 ####[facility] Stqsfagbis[address] [place], [place] [address]Dr. Suyapaviviana Clement IMP Resistant Gene Not Applicable Normal NOT DETECTED [facility] Comment on above: Performed By: #### B CID2 ####[facility] Hmxovqenqz17[address] [place], [place] [address]Dr. Abiel Clement K. oxytoca Not detected Normal NOT DETECTED [facility] Comment on above: Performed By: #### B CID2 ####[facility] Ejbwfvxooi97[address] [place], [place] [address]Dr. Abiel Clement K. pneumoniae Not detected Normal NOT DETECTED [facility] Comment on above: Performed By: #### B CID2 ####[facility] Dohmsyugdm3629 [place] [address]Dr. Abiel Clement Klebsiella aerogenes Not detected Normal NOT DETECTED [facility] Comment on above: Performed By: #### B CID2 ####[facility] Osfhpwqang33[address] [place], [place] [address]Dr. Abiel Clement KPC Resistant Gene Not detected Normal NOT DETECTED [facility] Comment on above: Performed By: #### B CID2 ####[facility] Kndjkfehkt14[address] [place], [place] [address]Dr. Abiel Clement List. monocytogenes Not detected Normal NOT DETECTED T [facility] Comment on above: Performed By: #### B CID2 ####[facility] Osmbxkzucs904[address] [place], [place] [address]Dr. Abiel Clement Mcr-1 Resistant Gene Not Applicable Normal NOT DETECTE D [facility] Comment on above: Performed By: #### B CID2 ####[facility] Vqxzcikfbx26[address] [place], [place] [address]Dr. Abiel Clement mecA/C Not Applicable Normal NOT DETECTED [facility] Comment on above: Performed By: #### B CID2 ####[facility] Rlsikmgjpq287[address] [place], [place] [address]Dr. Abiel Clement mecA/C MREJ Not Applicable Normal NOT DETECTED [facility] Comment on above: Performed By: #### B CID2 ####[facility] Jqxoddmlub353[address] [place], [place] [address]Dr. Abiel Clement N. meningitidis Not detected Normal NOT DETECTED [facility] Comment on above: Performed By: #### B CID2 ####[facility] Sibpckmbxg740[address] [place], [place] [address]Dr. Abiel Clement NDM Resistant Gene Not Applicable Normal NOT DETECTED [facility] Comment on above: Performed By: #### B CID2 ####[facility] Bgxjmvisyi598[address] [place], [place] [address]Dr. Abiel Clement Oxa-48-like Not Applicable Normal NOT DETECTED [facility] Comment on above: Performed By: #### B CID2 ####[facility] Qnrylhwafv529[address] [place], [place] [address]Dr. Abiel Clement Proteus Not detected Normal NOT DETECTED [facility] Comment on above: Performed By: #### B CID2 ####[facility] Hpqimlnmya580[address] [place], [place] [address]Dr. Abiel Clement Pseud. aeruginosa Not detected Normal NOT DETECTED [facility] Comment on above: Performed By: #### B CID2 ####[facility] Pxfdmdzzme249[address] [place], [place] [address]Dr. Abiel Clement S. maltophilia Not detected Normal NOT DETECTED [facility] Comment on above: Performed By: #### B CID2 ####[facility] Htswexjgio114[address] [place], [place] [address]Dr. Abiel Clement Salmonella Not detected Normal NOT DETECTED [facility] Comment on above: Performed By: #### B CID2 ####[facility] Nkcmgrsnam8[address] [place], [place] [address]Dr. Abiel Clement Seratia marcescens Not detected Normal NOT DETECTED [facility] Comment on above: Performed By: #### B CID2 ####[facility] Kolvucgldj958[address] [place], [place] [address]Dr. Abiel Clement Site: R A/c Normal [facility] Comment on above: Performed By: #### B CID2 ####[facility] Slqiolbuzp098[address] [place], [place] [address]Dr. Abeil Clement Staph. aureus Not detected Normal NOT DETECTED [facility] Comment on above: Performed By: #### B CID2 ####[facility] Yknyxqgykn589[address] [place], [place] [address]Dr. Abiel Clement Staph. epidermidis Not detected Normal NOT DETECTED [facility] Comment on above: Performed By: #### B CID2 ####[facility] Qvnwfdusud264[address] [place], [place] [address]Dr. Abiel Clement Staph. lugdunensis Not detected Normal NOT DETECTED [facility] Comment on above: Performed By: #### B CID2 ####[facility] Qcsktbnbzo820[address] [place], [place] [address]Dr. Abiel Clement Staphylococcus Not detected Normal NOT DETECTED [facility] Comment on above: Performed By: #### B CID2 ####[facility] Yylowksxgk58[address] [place], [place] [address]Dr. Abiel Clement Strep. agalactiae Not detected Normal NOT DETECTED [facility] Comment on above: Performed By: #### B CID2 ####[facility] Rncijhecht[address] [place], [place] [address]Dr. Suyapaviviana Clement Strep. pneumoniae Not detected Normal NOT DETECTED [facility] Comment on above: Performed By: #### B CID2 ####[facility] Ndhcoowgdd86[address] [place], [place] [address]Dr. Suyapaviviana Clement Strep. pyogenes Not detected Normal NOT DETECTED [facility] Comment on above: Performed By: #### B CID2 ####[facility] Tkdthfyudv[address] [place], [place] [address]Dr. Suyapaviviana Clement Streptococcus Detected Abnormal NOT DETECTED The [facility] Comment on above: Performed By: #### B CID2 ####[facility] Pnayzcqxvm[address] [place], [place] [address]Dr. Abiel Clement Jarvis/B Resist. Gene Not detected Normal NOT DETECTED [facility] Comment on above: Performed By: #### B CID2 ####[facility] Zroyfuzldd390[address] [place], [place] [address]Dr. Abiel Clement VIM Resistant Gene Not Applicable Normal NOT DETECTED [facility] Comment on above: Performed By: #### B CID2 ####[facility] Zwmdcxrpdp[address] [place], [place] [address]Dr. Abiel Clement BNPon 04-30-2022 Natriuretic peptide B (Bld) [Mass/Vol] 127.0 pg/mL Normal <=900.0 [facility] Comment on above: Performed By: #### B BUILDINGS AND GROUNDS DIRECTOR, CMP, HSTROPN ####[facility] Cmanpgxsij44[address] [place], [place] [address]Dr. Abiel Clement CBC AUTO DIFFon 04-30-2022 BASO # 0.1 103/ul Normal 0.0-0.[address] [facility] Comment on above: Performed By: #### C BC ####[facility] Gqmbqxartl[address] [place] [id number]. Abiel Clement Basophils/100 WBC (Bld) 0.6 % Normal 0.2-2.0 [facility] Comment on above: Performed By: #### C BC ####[facility] R[address]wed[address]ft[address] [place], [place] [address]Dr. Abiel Clement EO # 0.3 103/ul Normal 0.0-0.7 [facility] Comment on above: Performed By: #### C BC ####[facility] Upopkhryci[address] [place], [place] [address]Dr. Abiel Clement Eosinophils/100 WBC (Bld) 2.8 % Normal 0.9-7.0 [facility] Comment on above: Performed By: #### C BC ####[facility] Ayicgvyims[address] [place], [place] [address]Dr. Abiel Clement Erythrocyte distribution width (RBC) [Ratio] 12.9 % Normal 11.0-15.[address] [facility] Comment on above: Performed By: #### C BC ####[facility] Wpwsrppvew[address] [place], [place] [address]Dr. Abiel Clement Hematocrit (Bld) [Volume fraction] 38.7 % Normal 36.0-48.[address] [facility] Comment on above: Performed By: #### C BC ####[facility] Trvzvgmcq[address] [place], [place] [address]Dr. Abiel Clement Hemoglobin (Bld) [Mass/Vol] 12.5 g/dL Normal 12.0-16.0 [facility] Comment on above: Performed By: #### C BC ####[facility] Ylvormdrhj4[address] [place], [place] [address]Dr. Abiel Clement IG # 0.03 10e3/ul Normal 0.00-0.03 [facility] Comment on above: Performed By: #### C BC ####[facility] Shcxmhysyh13[address] [place], [place] [address]Dr. Abiel Clement IG % 0.3 % Normal 0.0-0.5 [facility] Comment on above: Performed By: #### C BC ####[facility] Bcfjnycbke4[address] [place] [id number]. Abiel Urbano LYMPH # 1.6 103/ul Normal 1.2-3.[address] [facility] Comment on above: Performed By: #### C BC ####[facility] Cenymhrlam6334 [place] [id number]. Suyapaviviana Clement Lymphocytes/100 WBC (Bld) 15.0 % Critically low 20.5-60.[address] [facility] Comment on above: Performed By: #### C BC ####[facility] Iiuxrvqldw8448 [place] [id number]. Abiel Clement MANUAL DIFF REQ NO Normal [facility] Comment on above: Performed By: #### C BC ####[facility] Ailnjnfves5168 [place] [id number]. Abiel Clement MCH (RBC) [Entitic mass] 28.9 pg Normal 26.7-34.[address] [facility] Comment on above: Performed By: #### C BC ####[facility] Qczzhkmsec8892 [place] [id number]. Suyapaviviana Clement MCHC (RBC) [Mass/Vol] 32.3 g/dL Normal 29.9-35.[address] [facility] Comment on above: Performed By: #### C BC ####[facility] Ngobworyte3464 [place] [id number]. Abiel Clement MCV (RBC) [Entitic vol] 89.6 fL Normal 81.0-99.0 [facility] Comment on above: Performed By: #### C BC ####[facility] Gigfunfsdr1956 [place] [id number]. Abiel Clement MONO # 0.8 103/ul Normal 0.3-0.8 [facility] Comment on above: Performed By: #### C BC ####[facility] Rciiyjshuk9916 [place] [id number]. Abiel Clement Monocytes/100 WBC (Bld) 7.2 % Normal 1.7-12.[address] [facility] Comment on above: Performed By: #### C BC ####[facility] Wsfqicuyql7021 [place] [id number]. Abiel Clement NEUT # 7.9 103/ul Critically high 1.4-6.5 The [facility] Comment on above: Performed By: #### C BC ####[facility] Qlgqiomado8404 [place] [id number]. Abiel Clement Neutrophils/100 WBC (Bld) 74.1 % Normal 43.0-75.0 [facility] Comment on above: Performed By: #### C BC ####[facility] Snirqubrks2570 [place] [id number]. Abiel Clement Platelet mean volume (Bld) [Entitic vol] 10.9 fL Normal 9.5-13.5 [facility] Comment on above: Performed By: #### C BC ####[facility] [address]esggwenhf[address] [place] [address]Dr. Abiel Clement PLT 308 103/ul Normal 150-450 [facility] Comment on above: Performed By: #### C BC ####[facility] Jhpwliqnck7886 [place] [id number]. Abiel Clement RBC 4.32 106/ul Normal 4.20-5.40 [facility] Comment on above: Performed By: #### C BC ####[facility] Qrgesnwnan6759 [place] [id number]. Abiel Clement WBC 10.6 103/ul Normal 4.0-11.0 [facility] Comment on above: Performed By: #### C BC ####[facility] Gjlfolrlxw[address] [place], [place] [address]Dr. Abiel Clement Covid-19 PCR (CVDTB)on 04-06 SARS-CoV-2 (COVID-19) RNA CLARIBEL+probe Ql (Unsp spec) Not detected Normal NOT DETECTED [facility] Comment on above: Result Comment: When [...] for this test is supported by the [employer] [place] of Health and Human Service's declaration that [...] be used). Performed By: #### C VDTB ####[facility] Wxppkgsaqh[address] [place], [place] [address]Dr. Abiel Clement LACTATE/LACTIC ACIDon 2021 Lactate [Moles/Vol] 2.3 mmol/L Critically high 0.4-1.[address] [facility] Comment on above: Performed By: #### L ACT ####[facility] Qdjohqgrhw[address] [place], [place] [address]DrKasia Clement Lactate [Moles/Vol] 3.3 mmol/L Critically high 0.4-1.[address] [facility] Comment on above: Performed By: #### L ACT ####[facility] Lbsdtlzlfx[address] [place], [place] [address]DrKasia Clement PROF 14(COMP METB)on 022 Albumin [Mass/Vol] 3.0 g/dL Critically low 3.4-5.0 Th [facility] Comment on above: Performed By: #### B BUILDINGS AND GROUNDS DIRECTOR, CMP, HSTROPN ####[facility] Huhajabiqy4267 [place] [address]DrKasia Clement Albumin/Globulin [Mass ratio] 0.7 {ratio} Normal [facility] Comment on above: Performed By: #### B BUILDINGS AND GROUNDS DIRECTOR, CMP, HSTROPN ####[facility] Eyjakvwpcg[address] [place] [address]Dr. Abiel Clement ALP [Catalytic activity/Vol] 218 U/L Critically high 46-116 [facility] Comment on above: Performed By: #### B BUILDINGS AND GROUNDS DIRECTOR, CMP, HSTROPN ####[facility] Pabuyqwdke[address] [place] [address]Dr. Abiel Clement ALT [Catalytic activity/Vol] 29 U/L Normal 14-[address] [facility] Comment on above: Performed By: #### B BUILDINGS AND GROUNDS DIRECTOR, CMP, HSTROPN ####[facility] Zhpncjaevd7688 [place] [address]Dr. Abiel Clement Anion gap [Moles/Vol] 14.3 mmol/L Normal Th e [facility] Comment on above: Performed By: #### B BUILDINGS AND GROUNDS DIRECTOR, CMP, HSTROPN ####[facility] Paappzyuqp[address] [place], [place] [address]Dr. Abiel Clement AST [Catalytic activity/Vol] 20 U/L Normal 15-[address] [facility] Comment on above: Performed By: #### B BUILDINGS AND GROUNDS DIRECTOR, CMP, HSTROPN ####[facility] Nvliymezcj[address] [place], [place] [address]Dr. Abiel Clement Bilirubin [Mass/Vol] 0.3 mg/dL Normal 0.2-1.[address] [facility] Comment on above: Performed By: #### B BUILDINGS AND GROUNDS DIRECTOR, CMP, HSTROPN ####[facility] Xruhxagrbp[address] [place], [place] [address]Dr. Abiel Clement Calcium [Mass/Vol] 9.2 mg/dL Normal 8.5-10.1 [facility] Comment on above: Performed By: #### B BUILDINGS AND GROUNDS DIRECTOR, CMP, HSTROPN ####[facility] Hhscpqctet7335 [place] [address]Dr. Abiel Clement Chloride [Moles/Vol] 98 mmol/L Normal 98-107 [facility] Comment on above: Performed By: #### B BUILDINGS AND GROUNDS DIRECTOR, CMP, HSTROPN ####[facility] Tybobgcwky8[address] [place] [address]Dr. Abiel Clement CO2 [Moles/Vol] 26.5 mmol/L Normal 21.0-32.0 [facility] Comment on above: Performed By: #### B BUILDINGS AND GROUNDS DIRECTOR, CMP, HSTROPN ####[facility] Myocoycwqw47[address] [place] [address]Dr. Abiel Clement Creatinine [Mass/Vol] 1.10 mg/dL Critically high 0.55-1.[address] [facility] Comment on above: Performed By: #### B BUILDINGS AND GROUNDS DIRECTOR, CMP, HSTROPN ####[facility] Bfnpudkyfw6196 [place] [address]Dr. Abiel Clement EGFR-AF PALAUAN >60 Normal >=60 [facility] Comment on above: Performed By: #### B BUILDINGS AND GROUNDS DIRECTOR, CMP, HSTROPN ####[facility] Fengigkgta224[address] [place] [address]Dr. Abiel Clement EGFR-NON AF PALAUAN 50 mL/min/1.73m2 Critically low >=60 [facility] Comment on above: Performed By: #### B BUILDINGS AND GROUNDS DIRECTOR, CMP, HSTROPN ####[facility] Abpctmdhrj1651 [place] [address]Dr. Abiel Clement Globulin (S) [Mass/Vol] 4.3 g/dL Normal [facility] Comment on above: Performed By: #### B BUILDINGS AND GROUNDS DIRECTOR, CMP, HSTROPN ####[facility] Zrrnqnbzmr[address] [place], [place] [address]Dr. Abiel Clement Glucose [Mass/Vol] 338 mg/dL Critically high 74-106 T [facility] Comment on above: Performed By: #### B BUILDINGS AND GROUNDS DIRECTOR, CMP, HSTROPN ####[facility] Vecxuulttg9842 [place] [address]Dr. Abiel Clement Potassium [Moles/Vol] 3.8 mmol/L Normal 3.5-5.[address] [facility] Comment on above: Performed By: #### B BUILDINGS AND GROUNDS DIRECTOR, CMP, HSTROPN ####[facility] Usmfjkrlxa[address] [place], [place] [address]Dr. Abiel Clement Protein [Mass/Vol] 7.3 g/dL Normal 6.4-8.[address] [facility] Comment on above: Performed By: #### B BUILDINGS AND GROUNDS DIRECTOR, CMP, HSTROPN ####[facility] Mxixbvugnb[address] [place], [place] [address]Dr. Abiel Clement Sodium [Moles/Vol] 135 mmol/L Critically low 136-145 Th e [facility] Comment on above: Performed By: #### B BUILDINGS AND GROUNDS DIRECTOR, CMP, HSTROPN ####[facility] Vhkcvzrjgl0304 [place] [id number]. Abiel Clement Urea nitrogen [Mass/Vol] 23.0 mg/dL Critically high 7.0-18.[address] [facility] Comment on above: Performed By: #### B BUILDINGS AND GROUNDS DIRECTOR, CMP, HSTROPN ####[facility] Feuqwudlbj37[address] [place] [address]Dr. Suyapaviviana Clement Urea nitrogen/Creatinine [Mass ratio] 20.9 mg/mg Normal [facility] Comment on above: Performed By: #### B BUILDINGS AND GROUNDS DIRECTOR, CMP, HSTROPN ####[facility] Fxjwzdmmav4698 [place] [address]Dr. Abiel Urbano TROPONIN, HIGH SENSITIVITYon 04-30-2022 HSTROP 3.8 pg/mL Critically low 4.0-51.3 [facility] Comment on above: Result Comment: CUT- OFF POINTS HAVE BEEN ESTABLISHED BASED ON THE FOURTH UNIVERSAL DEFINITIONS OF MYOCARDIALINFARCTION. THE UPPER REFERENCE LIMIT (URL) OF TROPONIN, DEFINED THE 99TH PERCENTILE OFcTnI DISTRIBUTION IN A REFERENCE POPULATION, HAS BEEN CONFIRMED THE DECISION THRESHOLDFOR [place] DIAGNOSIS. Performed By: #### H STROPN ####[facility] Kybmocupsw[address] [place] [address]Dr. Abiel Clement HSTROP 4.0 pg/mL Normal 4.0-51.[address] [facility] Comment on above: Result Comment: CUT- OFF POINTS HAVE BEEN ESTABLISHED BASED ON THE FOURTH UNIVERSAL DEFINITIONS OF MYOCARDIALINFARCTION. THE UPPER REFERENCE LIMIT (URL) OF TROPONIN, DEFINED THE 99TH PERCENTILE OFcTnI DISTRIBUTION IN A REFERENCE POPULATION, HAS BEEN CONFIRMED THE DECISION THRESHOLDFOR [place] DIAGNOSIS. Performed By: #### B BUILDINGS AND GROUNDS DIRECTOR, CMP, HSTROPN ####[facility] Sljygycixa[address] [place] [address]Dr. Abiel Urbano XR CHEST 1 Von 04-30-2022 XR CHEST 1 V Normal [facility] BNPon 03-15-2022 Natriuretic peptide B (Bld) [Mass/Vol] 2586.0 pg/mL Critically high <=900.0 [facility] Comment on above: Result Comment: repe ated Performed By: #### C MP, BNP, HSTROPN ####[facility] Iactcbxolc9699 [place] [address]Dr. Abiel Urbano CBC AUTO DIFFon 03-15-2022 BASO # 0.0 103/ul Normal 0.0-0.1 [facility] Comment on above: Performed By: #### C BC ####[facility] Jfemndiwos[address] [place], [place] [address]Dr. Abiel Clement Basophils/100 WBC (Bld) 0.4 % Normal 0.2-2.0 [facility] Comment on above: Performed By: #### C BC ####[facility] Aqzvjtkgza[address] [place], [place] [address]Dr. Abiel Clement EO # 0.1 103/ul Normal 0.0-0.7 [facility] Comment on above: Performed By: #### C BC ####[facility] Tesyxivlcn[address] [place], [place] [address]Dr. Abiel Clement Eosinophils/100 WBC (Bld) 1.8 % Normal 0.9-7.0 [facility] Comment on above: Performed By: #### C BC ####[facility] Efmhfowzhg[address] [place], [place] [address]Dr. Abiel Clement Erythrocyte distribution width (RBC) [Ratio] 13.7 % Normal 11.0-15.0 [facility] Comment on above: Performed By: #### C BC ####[facility] Ukwncrnfzg[address] [place], [place] [address]Dr. Abiel Clement Hematocrit (Bld) [Volume fraction] 29.7 % Critically low 36.0-48.0 [facility] Comment on above: Performed By: #### C BC ####[facility] Htpjdcnahn[address] [place], [place] [address]Dr. Abiel Clement Hemoglobin (Bld) [Mass/Vol] 9.5 g/dL Critically low 12.0-16.0 [facility] Comment on above: Performed By: #### C BC ####[facility] Aprcwwroxt26[address] [place] [address]Dr. Abiel Clement IG # 0.02 10e3/ul Normal 0.00-0.[address] [facility] Comment on above: Performed By: #### C BC ####[facility] Ogmjyoitrv5239 [place] [address]Dr. Abiel Clement IG % 0.3 % Normal 0.0-0.[address] [facility] Comment on above: Performed By: #### C BC ####[facility] Kgvtuqpsyo3285 [place] [address]Dr. Abiel Clement LYMPH # 1.6 103/ul Normal 1.2-3.[address] [facility] Comment on above: Performed By: #### C BC ####[facility] Mewkebfzxs4825 [place] [address]Dr. Abiel Clement Lymphocytes/100 WBC (Bld) 20.1 % Critically low 20.5-60.[address] [facility] Comment on above: Performed By: #### C BC ####[facility] Nszozehxcg[address] [place] [address]Dr. Abiel Clement MANUAL DIFF REQ NO Normal [facility] Comment on above: Performed By: #### C BC ####[facility] Flqnomvjqx2427 [place] [id number]. Abiel Clement MCH (RBC) [Entitic mass] 29.6 pg Normal 26.7-34.[address] [facility] Comment on above: Performed By: #### C BC ####[facility] Lskydpgvdh4824 [place] [id number]. Abiel Clement MCHC (RBC) [Mass/Vol] 32.0 g/dL Normal 29.9-35.2 [facility] Comment on above: Performed By: #### C BC ####[facility] Ubkyvwlbwf0191 [place] [address]Dr. Abiel Clement MCV (RBC) [Entitic vol] 92.5 fL Normal 81.0-99.[address] [facility] Comment on above: Performed By: #### C BC ####[facility] Hrvqjbhapn7240 [place] [id number]. Abiel Clement MONO # 0.6 103/ul Normal 0.3-0.8 [facility] Comment on above: Performed By: #### C BC ####[facility] Cdsejfatll8165 [place] [id number]. Abiel Clement Monocytes/100 WBC (Bld) 7.1 % Normal 1.7-12.0 [facility] Comment on above: Performed By: #### C BC ####[facility] Qymxnwetwq5967 [place] [id number]. Abiel Clement NEUT # 5.5 103/ul Normal 1.4-6.5 [facility] Comment on above: Performed By: #### C BC ####[facility] Mnbzwvzped7928 [place] [address]Dr. Abiel Clement Neutrophils/100 WBC (Bld) 70.3 % Normal 43.0-75.0 [facility] Comment on above: Performed By: #### C BC ####[facility] Zckwnpzcxa3552 [place] [id number]. Abiel Clement Platelet mean volume (Bld) [Entitic vol] 10.5 fL Normal 9.5-13.[address] [facility] Comment on above: Performed By: #### C BC ####[facility] Llarzmgfoh2663 [place] [id number]. Abiel Clement PLT 250 103/ul Normal 150-450 [facility] Comment on above: Performed By: #### C BC ####[facility] Xfjoxxnqrn7655 [place] [id number]. Abiel Clement RBC 3.21 106/ul Critically low 4.20-5.40 [facility] Comment on above: Performed By: #### C BC ####[facility] Jhqhrnjkua3229 [place] [id number]. Abiel Clement WBC 7.9 103/ul Normal 4.0-11.0 [facility] Comment on above: Performed By: #### C BC ####[facility] Vizugxjbtk3457 [place] [address]Dr. Abiel Clement PROF 14(COMP METB)on 022 Albumin [Mass/Vol] 2.2 g/dL Critically low 3.4-5.[address] [facility] Comment on above: Performed By: #### C MP, BNP, HSTROPN ####[facility] Yddqjjisyh6116 [place] [address]Dr. Abiel Clement Albumin/Globulin [Mass ratio] 0.6 {ratio} Normal [facility] Comment on above: Performed By: #### C MP, BNP, HSTROPN ####[facility] Xnjcsjkdxx[address] [place], [place] [address]Dr. Abiel Clement ALP [Catalytic activity/Vol] 112 U/L Normal 46-[address] [facility] Comment on above: Performed By: #### C MP, BNP, HSTROPN ####[facility] Wpzisocqho[address] [place], [place] [address]Dr. Abiel Clement ALT [Catalytic activity/Vol] 19 U/L Normal 14-[address] [facility] Comment on above: Performed By: #### C MP, BNP, HSTROPN ####[facility] Bcgiagvlmo45[address] [place], [place] [address]Dr. Abiel Clement Anion gap [Moles/Vol] 12.2 mmol/L Normal [facility] Comment on above: Performed By: #### C MP, BNP, HSTROPN ####[facility] Npeeiodqts14[address] [place], [place] [address]Dr. Abiel Clement AST [Catalytic activity/Vol] 15 U/L Normal 15-[address] [facility] Comment on above: Performed By: #### C MP, BNP, HSTROPN ####[facility] Vwempojfnd[address] [place], [place] [address]Dr. Abiel Clement Bilirubin [Mass/Vol] 0.3 mg/dL Normal 0.2-1.[address] [facility] Comment on above: Performed By: #### C MP, BNP, HSTROPN ####[facility] Hqoaqqlvkf3725 [place] [address]Dr. Abiel Clement Calcium [Mass/Vol] 8.6 mg/dL Normal 8.5-10.[address] [facility] Comment on above: Performed By: #### C MP, BNP, HSTROPN ####[facility] Pgenpuzctl7561 [place] [address]Dr. Abiel Clement Chloride [Moles/Vol] 104 mmol/L Normal 98-107 [facility] Comment on above: Performed By: #### C MP, BNP, HSTROPN ####[facility] Bmbytoplki2371 [place] [address]Dr. Abiel Clement CO2 [Moles/Vol] 25.3 mmol/L Normal 21.0-32.0 [facility] Comment on above: Performed By: #### C MP, BNP, HSTROPN ####[facility] Vlbkcxlvrs[address] [place], [place] [address]Dr. Abiel Clement Creatinine [Mass/Vol] 0.98 mg/dL Normal 0.55-1.02 [facility] Comment on above: Performed By: #### C MP, BNP, HSTROPN ####[facility] Eusyqbnqsb[address] [place], [place] [address]Dr. Abiel Clement EGFR-AF PALAUAN >60 Normal >=60 [facility] Comment on above: Performed By: #### C MP, BNP, HSTROPN ####[facility] Eticrbxjuf[address] [place], [place] [address]Dr. Abiel Clement EGFR-NON AF PALAUAN 58 mL/min/1.73m2 Critically low >=60 [facility] Comment on above: Performed By: #### C MP, BNP, HSTROPN ####[facility] Zytmfujhwg[address] [place], [place] [address]Dr. Abiel Clement Globulin (S) [Mass/Vol] 3.7 g/dL Normal [facility] Comment on above: Performed By: #### C MP, BNP, HSTROPN ####[facility] Yfwfbesdbp9598 [place] [address]Dr. Abiel Clement Glucose [Mass/Vol] 279 mg/dL Critically high 74-106 T [facility] Comment on above: Performed By: #### C MP, BNP, HSTROPN ####[facility] Dcomsjevfc0529 [place] [address]Dr. Abiel Clement Potassium [Moles/Vol] 3.5 mmol/L Normal 3.5-5.[address] [facility] Comment on above: Performed By: #### C MP, BNP, HSTROPN ####[facility] Bgfprftnlg6505 [place] [address]Dr. Abiel Clement Protein [Mass/Vol] 5.9 g/dL Critically low 6.4-8.[address] [facility] Comment on above: Performed By: #### C MP, BNP, HSTROPN ####[facility] Ebiovkcmbj9603 [place] [address]Dr. Abiel Clement Sodium [Moles/Vol] 138 mmol/L Normal 136-145 [facility] Comment on above: Performed By: #### C MP, BNP, HSTROPN ####[facility] Wxcqjvogko1745 [place] [address]Dr. Abiel Clement Urea nitrogen [Mass/Vol] 23.0 mg/dL Critically high 7.0-18.[address] [facility] Comment on above: Performed By: #### C MP, BNP, HSTROPN ####[facility] Mjncpzjukt0621 [place] [address]Dr. Abiel Clement Urea nitrogen/Creatinine [Mass ratio] 23.5 mg/mg Normal [facility] Comment on above: Performed By: #### C MP, BNP, HSTROPN ####[facility] Jeqikklhve3740 [place] [address]Dr. Abiel Clement TROPONIN, HIGH SENSITIVITYon 03-15-2022 HSTROP 9.0 pg/mL Normal 4.0-51.[address] [facility] Comment on above: Result Comment: CUT- OFF POINTS HAVE BEEN ESTABLISHED BASED ON THE FOURTH UNIVERSAL DEFINITIONS OF MYOCARDIALINFARCTION. THE UPPER REFERENCE LIMIT (URL) OF TROPONIN, DEFINED THE 99TH PERCENTILE OFcTnI DISTRIBUTION IN A REFERENCE POPULATION, HAS BEEN CONFIRMED THE DECISION [place]RESHOLDFOR [place] DIAGNOSIS. Performed By: #### C MP, BNP, HSTROPN ####[facility] [address] [place] [address]Dr. Abiel Clement BNPon 03-14-2022 Natriuretic peptide B (Bld) [Mass/Vol] 3438.0 pg/mL Critically high <=900.[address] [facility] Comment on above: Performed By: #### H STROPN, BNP, CMP ####[facility] Svgxqusm[address] [place], [place] [address]Dr. Abiel Clement CBC AUTO DIFFon 03-14-2022 BASO # 0.0 103/ul Normal 0.0-0.1 [facility] Comment on above: Performed By: #### C BC ####[facility] Ffizgnkwoe[address] [place], [place] [address]Dr. Abiel Clement Basophils/100 WBC (Bld) 0.4 % Normal 0.2-2.0 [facility] Comment on above: Performed By: #### C BC ####[facility] Wkkezvozre[address] [place], [place] [address]Dr. Abiel Clement EO # 0.1 103/ul Normal 0.0-0.7 [facility] Comment on above: Performed By: #### C BC ####[facility] Kbbzzdrrgv[address] [place], [place] [address]Dr. Abiel Clement Eosinophils/100 WBC (Bld) 0.9 % Normal 0.9-7.0 [facility] Comment on above: Performed By: #### C BC ####[facility] Tmxtnpyqpk[address] [place], [place] [address]Dr. Abiel Clement Erythrocyte distribution width (RBC) [Ratio] 13.5 % Normal 11.0-15.0 [facility] Comment on above: Performed By: #### C BC ####[facility] Vmytqdmtug[address] [place], [place] [address]Dr. Abiel Clement Hematocrit (Bld) [Volume fraction] 29.5 % Critically low 36.0-48.0 [facility] Comment on above: Performed By: #### C BC ####[facility] [address]ow[address] [place] [id number]. Abiel Clement Hemoglobin (Bld) [Mass/Vol] 9.3 g/dL Critically low 12.0-16.0 [facility] Comment on above: Performed By: #### C BC ####[facility] Sfiisqklli[address] [place] [id number]. Abiel Clement IG # 0.07 10e3/ul Critically high 0.00-0.03 [facility] Comment on above: Performed By: #### C BC ####[facility] [address]fr[address] [place] [address]Dr. Abiel Clement IG % 0.7 % Critically high 0.0-0.5 [facility] Comment on above: Performed By: #### C BC ####[facility] Apppdgkavz[address] [place], [place] [address]Dr. Abiel Clement LYMPH # 1.7 103/ul Normal 1.2-3.8 [facility] Comment on above: Performed By: #### C BC ####[facility] Dnitqavzah[address] [place] [address]Dr. Abiel Clement Lymphocytes/100 WBC (Bld) 17.0 % Critically low 20.5-60.[address] [facility] Comment on above: Performed By: #### C BC ####[facility] Xndkmqkrqs[address] [place] [address]Dr. Abiel Clement MANUAL DIFF REQ NO Normal [facility] Comment on above: Performed By: #### C BC ####[facility] Dqybaoekfb[address] [place], [place] [address]Dr. Abiel Clement MCH (RBC) [Entitic mass] 29.2 pg Normal 26.7-34.0 [facility] Comment on above: Performed By: #### C BC ####[facility] Rehhjqfdyj94[address] [place], [place] [address]Dr. Abiel Clement MCHC (RBC) [Mass/Vol] 31.5 g/dL Normal 29.9-35.2 [facility] Comment on above: Performed By: #### C BC ####[facility] Sebcnarktg[address] [place] [id number]. Abiel Clement MCV (RBC) [Entitic vol] 92.5 fL Normal 81.0-99.0 [facility] Comment on above: Performed By: #### C BC ####[facility] Rhhcsjgrtk[address] [place] [id number]. Abiel Clement MONO # 0.9 103/ul Critically high 0.3-0.8 [facility] Comment on above: Performed By: #### C BC ####[facility] Xdrggargrx[address] [place], [place] [address]Dr. Abiel Clement Monocytes/100 WBC (Bld) 9.1 % Normal 1.7-12.0 [facility] Comment on above: Performed By: #### C BC ####[facility] Gyhwqdwkzw058[address] [place], [place] [address]Dr. Abiel Clement NEUT # 7.3 103/ul Critically high 1.4-6.5 [facility] Comment on above: Performed By: #### C BC ####[facility] Anijuqzplu339[address] [place], [place] [address]Dr. Abiel Clement Neutrophils/100 WBC (Bld) 71.9 % Normal 43.0-75.0 [facility] Comment on above: Performed By: #### C BC ####[facility] Ooemakdqkg35[address] [place], [place] [address]Dr. Abiel Clement Platelet mean volume (Bld) [Entitic vol] 11.0 fL Normal 9.5-13.5 [facility] Comment on above: Performed By: #### C BC ####[facility] Bugqjzegoz[address] [place], [place] [address]Dr. Abiel Clement PLT 232 103/ul Normal 150-450 [facility] Comment on above: Performed By: #### C BC ####[facility] [address]zvexfprb[address] [place], [place] [address]Dr. Abiel Clement RBC 3.19 106/ul Critically low 4.20-5.40 [facility] Comment on above: Performed By: #### C BC ####[facility] Odbxpztlqs47[address] [place] [id number]. Abiel Clement WBC 10.1 103/ul Normal 4.0-11.[address] [facility] Comment on above: Performed By: #### C BC ####[facility] Htkqxxcajc9164 [place] [id number]. Abiel Clement POINT OF CARE GLUCOSEon 03-05 Glucose [Mass/Vol] 141 mg/dL Critically high [address] [place] [address] Comment on above: Performed By: #### P OCGLUC ####[facility] Xsliimjnet[address] [place] [address]Dr. Abiel Clement Glucose [Mass/Vol] 182 mg/dL Critically high [address] [place] [address] Comment on above: Performed By: #### P OCGLUC ####[facility] Vrsqqcmkoo[address] [place] [address]Dr. Abiel Clement Glucose [Mass/Vol] 235 mg/dL Critically high [address] [place] [address] Comment on above: Performed By: #### P OCGLUC ####[facility] Mmructfwfj[address] [place] [address]Dr. Abiel Clement Glucose [Mass/Vol] 246 mg/dL Critically high [address] [place] [address] Comment on above: Performed By: #### P OCGLUC ####[facility] Tuhvylgovt[address] [place] [address]Dr. Abiel Clement Glucose [Mass/Vol] 256 mg/dL Critically high [address] [place] [address] Comment on above: Performed By: #### P OCGLUC ####[facility] Ijpbhohyag[address] [place] [address]Dr. Abiel Clement Glucose [Mass/Vol] 249 mg/dL Critically high [address] [place] [address] Comment on above: Performed By: #### P OCGLUC ####[facility] Acgdbkecpb[address] [place], [place] [address]Dr. Abiel Urbano PROF 14(COMP METB)on 022 Albumin [Mass/Vol] 2.2 g/dL Critically low 3.4-5.[address] [facility] Comment on above: Performed By: #### H STROPN, BNP, CMP ####[facility] Vpzyxxpgow[address] [place] [address]Dr. Abiel Clement Albumin/Globulin [Mass ratio] 0.6 {ratio} Normal [facility] Comment on above: Performed By: #### H STROPN, BNP, CMP ####[facility] Spxshybdvv6[address] [place] [address]Dr. Abiel Clement ALP [Catalytic activity/Vol] 114 U/L Normal 46-[address] [facility] Comment on above: Performed By: #### H STROPN, BNP, CMP ####[facility] [address]edrjayqsa[address] [place] [address]Dr. Abiel Clement ALT [Catalytic activity/Vol] 20 U/L Normal 14-[address] [facility] Comment on above: Performed By: #### H STROPN, BNP, CMP ####[facility] Iaqmvapnco12[address] [place], [place] [address]Dr. Abiel Clement Anion gap [Moles/Vol] 9.7 mmol/L Normal [facility] Comment on above: Performed By: #### H STROPN, BNP, CMP ####[facility] Hlvzglmyzp264[address] [place], [place] [address]Dr. Abiel Clement AST [Catalytic activity/Vol] 18 U/L Normal 15-[address] [facility] Comment on above: Performed By: #### H STROPN, BNP, CMP ####[facility] Bhtbsxbjdq[address] [place], [place] [address]Dr. Abiel Clement Bilirubin [Mass/Vol] 0.2 mg/dL Normal 0.2-1.[address] [facility] Comment on above: Performed By: #### H STROPN, BNP, CMP ####[facility] Kpivppyvkp[address] [place], [place] [address]Dr. Abiel Clement Calcium [Mass/Vol] 8.4 mg/dL Critically low 8.5-10.1 [facility] Comment on above: Performed By: #### H STROPN, BNP, CMP ####[facility] Fqmusstsup15[address] [place], [place] [address]Dr. Abiel Clement Chloride [Moles/Vol] 105 mmol/L Normal 98-107 [facility] Comment on above: Performed By: #### H STROPN, BNP, CMP ####[facility] Dhdipnlqkp[address] [place] [address]Dr. Abiel Clement CO2 [Moles/Vol] 26.1 mmol/L Normal 21.0-32.0 [facility] Comment on above: Performed By: #### H STROPN, BNP, CMP ####[facility] Dasxciunko[address] [place] [address]Dr. Abiel Clement Creatinine [Mass/Vol] 1.01 mg/dL Normal 0.55-1.02 [facility] Comment on above: Performed By: #### H STROPN, BNP, CMP ####[facility] Gicxzrunwi[address] [place] [address]Dr. Abiel Clement EGFR-AF PALAUAN >60 Normal >=60 [facility] Comment on above: Performed By: #### H STROPN, BNP, CMP ####[facility] Weupzumbkd14[address] [place] [address]Dr. Abiel Clement EGFR-NON AF PALAUAN 56 mL/min/1.73m2 Critically low >=60 [facility] Comment on above: Performed By: #### H STROPN, BNP, CMP ####[facility] Sjlcodsllb[address] [place] [address]Dr. Abiel Clement Globulin (S) [Mass/Vol] 3.4 g/dL Normal [facility] Comment on above: Performed By: #### H STROPN, BNP, CMP ####[facility] Sawmmfapcr[address] [place] [address]Dr. Abiel Clement Glucose [Mass/Vol] 267 mg/dL Critically high 74-106 [facility] Comment on above: Performed By: #### H STROPN, BNP, CMP ####[facility] Yvmhzdxaie[address] [place] [address]Dr. Abiel Clement Potassium [Moles/Vol] 3.8 mmol/L Normal 3.5-5.1 [facility] Comment on above: Performed By: #### H STROPN, BNP, CMP ####[facility] Eoybgocroy[address] [place] [address]Dr. Abiel Clement Protein [Mass/Vol] 5.6 g/dL Critically low 6.4-8.2 Th [facility] Comment on above: Performed By: #### H STROPN, BNP, CMP ####[facility] Wkqmikyben[address] [place] [address]Dr. Abiel Clement Sodium [Moles/Vol] 137 mmol/L Normal 136-145 [facility] Comment on above: Performed By: #### H STROPN, BNP, CMP ####[facility] Dlykzscfxk6[address] [place] [address]Dr. Abiel Clement Urea nitrogen [Mass/Vol] 28.0 mg/dL Critically high 7.0-18.[address] [facility] Comment on above: Performed By: #### H STROPN, BNP, CMP ####[facility] Bssgqtcyzz[address] [place], [place] [address]Dr. Abiel Clement Urea nitrogen/Creatinine [Mass ratio] 27.7 mg/mg Normal [facility] Comment on above: Performed By: #### H STROPN, BNP, CMP ####[facility] Qvthuhreli[address] [place], [place] [address]Dr. Abiel Clement TROPONIN, HIGH SENSITIVITYon 03-14-2022 HSTROP 13.7 pg/mL Normal 4.0-51.[address] [facility] Comment on above: Result Comment: CUT- OFF POINTS HAVE BEEN ESTABLISHED BASED ON THE FOURTH UNIVERSAL DEFINITIONS OF MYOCARDIALINFARCTION. THE UPPER REFERENCE LIMIT (URL) OF TROPONIN, DEFINED THE 99TH PERCENTILE OFcTnI DISTRIBUTION IN A REFERENCE POPULATION, HAS BEEN CONFIRMED THE DECISION THRESHOLDFOR [place] DIAGNOSIS. Performed By: #### H STROPN, BNP, CMP ####[facility] Avjbkbezdo[address] [place] [address]Dr. Abiel Clement BNPon 03-13-2022 Natriuretic peptide B (Bld) [Mass/Vol] 1791.0 pg/mL Critically high <=900.[address] [facility] Comment on above: Performed By: #### C MP, BNP ####[facility] Tvnnhfzwmz[address] [place] [id number]. Abiel Urbano Natriuretic peptide B (Bld) [Mass/Vol] 698.0 pg/mL Normal <=900.0 [facility] Comment on above: Performed By: #### B BUILDINGS AND GROUNDS DIRECTOR, CMP ####[facility] Soodocskbr[address] [place] [address]Dr. Abiel Clement CBC AUTO DIFFon 03-13-2022 BASO # 0.0 103/ul Normal 0.0-0.1 [facility] Comment on above: Performed By: #### C BC ####[facility] Pxdrcvyyzh[address] [place], [place] [address]Dr. Abiel Clement Basophils/100 WBC (Bld) 0.2 % Normal 0.2-2.0 [facility] Comment on above: Performed By: #### C BC ####[facility] Rxillcerqe36[address] [place], [place] [address]Dr. Abiel Clement EO # 0.0 103/ul Normal 0.0-0.7 [facility] Comment on above: Performed By: #### C BC ####[facility] Okjyoakdow17[address] [place], [place] [address]Dr. Abiel Clement Eosinophils/100 WBC (Bld) 0.0 % Critically low 0.9-7.[address] [facility] Comment on above: Performed By: #### C BC ####[facility] Krljfzotpk[address] [place], [place] [address]Dr. Abiel Clement Erythrocyte distribution width (RBC) [Ratio] 13.3 % Normal 11.0-15.0 [facility] Comment on above: Performed By: #### C BC ####[facility] Iykvxcvyhi[address] [place], [place] [address]Dr. Abiel Clement Hematocrit (Bld) [Volume fraction] 33.4 % Critically low 36.0-48.0 [facility] Comment on above: Performed By: #### C BC ####[facility] Byfvfzymer23[address] [place], [place] [address]Dr. Abiel Clement Hemoglobin (Bld) [Mass/Vol] 10.6 g/dL Critically low 12.0-16.[address] [facility] Comment on above: Performed By: #### C BC ####[facility] Xudpdzxsuj64[address] [place] [address]DrKasia Clement IG # 0.13 10e3/ul Critically high 0.00-0.03 [facility] Comment on above: Performed By: #### C BC ####[facility] Atibjzndwc[address] [place] [address]DrKasia Clement IG % 0.8 % Critically high 0.0-0.5 [facility] Comment on above: Performed By: #### C BC ####[facility] Vaeasusogc[address] [place] [address]DrKasia Clement LYMPH # 1.0 103/ul Critically low 1.2-3.8 [facility] Comment on above: Performed By: #### C BC ####[facility] Fxbyexptya9980 [place] [address]DrKasia Clement Lymphocytes/100 WBC (Bld) 6.0 % Critically low 20.5-60.[address] [facility] Comment on above: Performed By: #### C BC ####[facility] Dhiicividj0454 [place] [address]DrKasia Clement MANUAL DIFF REQ NO Normal [facility] Comment on above: Performed By: #### C BC ####[facility] Tlgduqqbqd7859 [place] [address]DrKasia Clement MCH (RBC) [Entitic mass] 30.0 pg Normal 26.7-34.[address] [facility] Comment on above: Performed By: #### C BC ####[facility] Skccyhkgrg2287 [place] [id number] Clement MCHC (RBC) [Mass/Vol] 31.7 g/dL Normal 29.9-35.2 [facility] Comment on above: Performed By: #### C BC ####[facility] Qoxrgfnagh1408 [place] [id number] Clement MCV (RBC) [Entitic vol] 94.6 fL Normal 81.0-99.0 [facility] Comment on above: Performed By: #### C BC ####[facility] Htlmbxzljo6991 [place] [id number]. Abiel Clement MONO # 1.4 103/ul Critically high 0.3-0.8 [facility] Comment on above: Performed By: #### C BC ####[facility] Whftuqohfl2368 [place] [id number]. Abiel Urbano Monocytes/100 WBC (Bld) 8.9 % Normal 1.7-12.0 [facility] Comment on above: Performed By: #### C BC ####[facility] Xleibqnqfh4937 [place] [id number]. Abiel Clement NEUT # 13.3 103/ul Critically high 1.4-6.5 [facility] Comment on above: Performed By: #### C BC ####[facility] Cjshpjzkbx5[address] [place] [address]Dr. Suyapaviviana Clement Neutrophils/100 WBC (Bld) 84.1 % Critically high 43.0-75.0 [facility] Comment on above: Performed By: #### C BC ####[facility] Vhlfeyotrb4783 [place] [id number]. Abiel Urbano Platelet mean volume (Bld) [Entitic vol] 10.8 fL Normal 9.5-13.5 [facility] Comment on above: Performed By: #### C BC ####[facility] Wvnobyxocp4643 [place] [id number]. Abiel Urbano PLT 243 103/ul Normal 150-450 [facility] Comment on above: Performed By: #### C BC ####[facility] Qgtivrabdu9334 [place] [id number]. Abiel Clement RBC 3.53 106/ul Critically low 4.20-5.40 [facility] Comment on above: Performed By: #### C BC ####[facility] Wbtdbiriur3367 [place] [id number]. Abiel Clement WBC 15.9 103/ul Critically high 4.0-11.0 [facility] Comment on above: Performed By: #### C BC ####[facility] Qrtomeqdpd8093 [place] [address]Dr. Abiel Clement CBC W MANUAL DIFFon 03-13-20 22 ATYPICAL LYMPH # Normal [facility] Comment on above: Performed By: #### C BCMAN ####[facility] Ytldswpccz023[address] [place] [address]Dr. Abiel Clement ATYPICAL LYMPH % Normal [facility] Comment on above: Performed By: #### C BCMAN ####[facility] Gbeucykpza7[address] [place] [address]Dr. Abiel Clement BAND # 0.8 103/ul Critically high 0.0-0.3 [facility] Comment on above: Performed By: #### C BCMAN ####[facility] [address]uktjasykw[address] [place], [place] [address]Dr. Abiel Clement BAND % 6 % Critically high 0-5 [facility] Comment on above: Performed By: #### C BCMAN ####[facility] Wphgegdcun[address] [place], [place] [address]Dr. Abiel Clement BASOM # 0.00 103/ul Normal 0.00-0.10 [facility] Comment on above: Performed By: #### C BCMAN ####[facility] Ytndpoybkw[address] [place], [place] [address]Dr. Abiel Clement BASOM % 0.0 % Critically low 0.2-2.0 [facility] Comment on above: Performed By: #### C BCMAN ####[facility] Ttujojntcs7[address] [place] [address]Dr. Abiel Clement BLAST # Normal [facility] Comment on above: Performed By: #### C BCMAN ####[facility] Bdibdnvhgk[address] [place], [place] [address]Dr. Abiel Clement BLAST % Normal [facility] Comment on above: Performed By: #### C BCMAN ####[facility] Ijtcatgxps[address] [place], [place] [address]Dr. Abiel Clement CORRECTED WBC Normal 4.0-11.0 [facility] Comment on above: Performed By: #### C BCALLY ####[facility] Eorhuwapog1749 [place], [place] [address]St. Abiel Clement EOS # 0.00 103/ul Normal 0.00-0.[address] [facility] Comment on above: Performed By: #### C BCALLY ####[facility] Qshbqebfsk9712 [place] [id number]. Abiel Clement EOS% 0.0 % Critically low 0.9-7.0 [facility] Comment on above: Performed By: #### C ALVINO ####[facility] Rhkfwdgyon7218 [place] [id number]. Abiel Clement HCT 38.5 % Normal 36.0-48.[address] [facility] Comment on above: Performed By: #### C ALVINO ####[facility] Pdnkbssyon5754 [place] [id number]. Abiel Clement HGB 12.5 g/dl Normal 12.0-16.[address] [facility] Comment on above: Performed By: #### C ALVINO ####[facility] Flfkekksbe3132 [place] [id number]. Abiel Clement LYMPHM # 0.13 103/ul Critically low 1.20-3.80 [facility] Comment on above: Performed By: #### C ALVINO ####[facility] Xxudoqjkhx2411 [place] [id number]. Abiel Clement LYMPHM% 1.0 % Critically low 20.5-60.0 [facility] Comment on above: Performed By: #### C ALVINO ####[facility] Ngvqatpjxu1401 [place], [place] [address]Iq. Abiel Clement MCH 29.3 pg Normal 26.7-34.0 [facility] Comment on above: Performed By: #### C ALVINO ####[facility] Rzrqrbhzdh8723 [place] [id number]. Abiel Clement MCHC 32.5 g/dl Normal 29.9-35.2 [facility] Comment on above: Performed By: #### Sheila DE OLIVEIRA ####[facility] Hbbjbgqfue0626 [place] [id number]. Abiel Clement MCV 90.4 fL Normal 81.0-99.[address] [facility] Comment on above: Performed By: #### C ALVINO ####[facility] Yfbpfvfhmw8507 [place] [id number]. Abiel Clement METAMYELOCYTE # Normal [facility] Comment on above: Performed By: #### Sheila DE OLIVEIRA ####[facility] Duuvbkyrde[address] [place], [place] [address]Dr. Abiel Clement METAMYELOCYTE % Normal [facility] Comment on above: Performed By: #### C ALVINO ####[facility] Jsbfkolnbb[address] [place], [place] [address]Dr. Abiel Clement MONOM# 0.13 103/ul Critically low 0.30-0.80 [facility] Comment on above: Performed By: #### Sheila DE OLIVEIRA ####[facility] Erckelaphx[address] [place], [place] [address]Dr. Abiel Clement MONOM% 1.0 % Critically low 1.7-12.0 [facility] Comment on above: Performed By: #### Sheila DE OLIVEIRA ####[facility] Izdrmybakw[address] [place], [place] [address]Dr. Abiel Clement MPV 10.6 fL Normal 9.5-13.[address] [facility] Comment on above: Performed By: #### Sheila DE OLIVEIRA ####[facility] Usufifwifi[address] [place], [place] [address]Dr. Abiel Clement MYELOCYTE # Normal [facility] Comment on above: Performed By: #### Sheila DE OLIVEIRA ####[facility] [address]azjswiccw[address] [place], [place] [address]Dr. Abiel Clement MYELOCYTE % Normal [facility] Comment on above: Performed By: #### Sheila DE OLIVEIRA ####[facility] Veflvhjzfq[address] [place], [place] [address]Dr. Abiel Clement NRBC Normal [facility] Comment on above: Performed By: #### Sheila DE OLIVEIRA ####[facility] Hrchhgdzgn5441 [place], [place] [address]Sf. Abiel Clement PLT 307 103/ul Normal 150-450 [facility] Comment on above: Result Comment: Plat elet clumps noted on diff. Automated Platelet count may be falsely decreased Performed By: #### C ALVINO ####[facility] Hgsfitxtxt1497 [place], [place] [address]Wb. Abiel Clement RBC 4.26 106/ul Normal 4.20-5.40 [facility] [facility] Comment on above: Performed By: #### Sheila DE OLIVEIRA ####[facility] Zvjcczzzpm[address] [place], [place] [address]Vi. Abiel Clement RDW 13.3 % Normal 11.0-15.[address] [facility] Comment on above: Performed By: #### Sheila DE OLIVEIRA ####[facility] Cpaybgftzy37[address] [place] [id number]. Suyapaviviana Clement SEG # 11.68 103/ul Critically high 1.40-6.50 [facility] Comment on above: Performed By: #### Sheila DE OLIVEIRA ####[facility] Tzycvsdq[address] [place], [place] [address]Lg. Abiel Clement SEG % 92.0 % Critically high 43.0-75.0 [facility] Comment on above: Performed By: #### Sheila DE OLIVEIRA ####[facility] Xuigumgixe3318 [place], [place] [address]Ts. Abiel Clement WBC 12.7 103/ul Critically high 4.0-11.0 [facility] Comment on above: Performed By: #### Sheila DE OLIVEIRA ####[facility] Emwlpzzors5493 [place], [place] [address]Uz. Abiel Clement CTA CHEST WO W CONon 022 CTA CHEST WO W CON Normal The [facility] CULTURE BLOODon 03-13-2022 Microscopic examination of blood, culture Culture Observations: NO GROWTH AT 5 DAYS. Normal [facility] Comment on above: Performed By: #### B LDCX2 ####[facility] Karqnaiaot[address] [place] [id number]. Abiel Clement Microscopic examination of blood, culture Culture Observations: NO GROWTH AT 5 [address]. [address] [facility] Comment on above: Performed By: #### B LDCX1 ####[facility] Ciywjiegtu0682 [place], [place] [address]Xh. Abiel Clement Covid-19 PCR (CVDTB)on SARS-CoV-2 (COVID-19) RNA CLARIBEL+probe Ql (Unsp spec) Not detected Normal NOT DETECTED [facility] Comment on above: Result Comment: When [...] for this test is supported by the [place] of Health and Human Service's declaration that [...] be used). Performed By: #### C VDTBH ####[facility] Ylxgktxgfm1752 [place], [place] [address]Du. Abiel Clement D-DIMERon 03-13-2022 D-DIMER 2.68 mg/L FEU Critically high <=0.[address] [facility] Comment on above: Performed By: #### D DIM ####[facility] Ubolirggme2419 [place], [place] [address]Ib. Abiel [facility] D-DIMER COMMENTS SEE BELOW Normal [facility] Comment on above: Result Comment: Incr [...] generalized hospitalization. Performed By: #### D DIM ####[facility] Sxuytrhxk[address] [place], [place] [address]Dr. Abiel Clement LACTATE/LACTIC ACIDon 2021 Lactate [Moles/Vol] 1.6 mmol/L Normal 0.4-1.9 [facility] Comment on above: Performed By: #### L ACT ####[facility] Ntkviwhpnl[address] [place], [place] [address]Dr. Abiel Clement Lactate [Moles/Vol] 2.0 mmol/L Critically high 0.4-1.[address] [facility] Comment on above: Performed By: #### L ACT ####[facility] Qyweidvzzf[address] [place], [place] [address]Dr. Abiel Clement POINT OF CARE GLUCOSEon Glucose [Mass/Vol] 359 mg/dL Critically high [address] [place] [address] Comment on above: Performed By: #### P OCGLUC ####[facility] Unqhqkoqry[address] [place], [place] [address]Dr. Abiel Clement Glucose [Mass/Vol] 428 mg/dL Critically high [address] [place] [address] Comment on above: Performed By: #### P OCGLUC ####[facility] Tlhdcilacf034[address] [place], [place] [address]Dr. Suyapaviviana Clement Glucose [Mass/Vol] 461 mg/dL Critically high [address] [place] [address] Comment on above: Performed By: #### P OCGLUC ####[facility] Picznzygfa039[address] [place], [place] [address]Dr. Abiel Clement Glucose [Mass/Vol] 494 mg/dL Critically high [address] [place] [address] Comment on above: Performed By: #### P OCGLUC ####[facility] Oczmzbtzpx[address] [place], [place] [address]Dr. Abiel Clement PROF 14(COMP METB)on 022 Albumin [Mass/Vol] 2.4 g/dL Critically low 3.4-5.[address] [facility] Comment on above: Performed By: #### C MP, BNP ####[facility] Gcxbpdpwsp[address] [place] [address]Dr. Abiel Clement Albumin/Globulin [Mass ratio] 0.6 {ratio} Normal [facility] Comment on above: Performed By: #### C MP, BNP ####[facility] Gompclgwhx[address] [place] [address]Dr. Abiel Clement ALP [Catalytic activity/Vol] 128 U/L Critically high 46-[address] [facility] Comment on above: Performed By: #### C MP, BNP ####[facility] Papngjztpw18[address] [place], [place] [address]Dr. Abiel Clement ALT [Catalytic activity/Vol] 17 U/L Normal 14-[address] [facility] Comment on above: Performed By: #### C MP, BNP ####[facility] Ewdhlkrvqn709[address] [place], [place] [address]Dr. Abiel Clement Anion gap [Moles/Vol] 13.9 mmol/L Normal Th [facility] Comment on above: Performed By: #### C MP, BNP ####[facility] Olsxpaazki[address] [place], [place] [address]Dr. Abiel Clement AST [Catalytic activity/Vol] 26 U/L Normal 15-[address] [facility] Comment on above: Performed By: #### C MP, BNP ####[facility] Mtczyaucrz[address] [place], [place] [address]Dr. Abiel Clement Bilirubin [Mass/Vol] 0.5 mg/dL Normal 0.2-1.[address] [facility] Comment on above: Performed By: #### C MP, BNP ####[facility] Abucchsnut11[address] [place], [place] [address]Dr. Abiel Clement Calcium [Mass/Vol] 8.3 mg/dL Critically low 8.5-10.1 Th [facility] Comment on above: Performed By: #### C MP, BNP ####[facility] Zndetknvtt13[address] [place], [place] [address]Dr. Abiel Clement Chloride [Moles/Vol] 99 mmol/L Normal 98-[address] [facility] Comment on above: Performed By: #### C MP, BNP ####[facility] Wtkpholzau[address] [place], [place] [address]Dr. Abiel Clement CO2 [Moles/Vol] 23.4 mmol/L Normal 21.0-32.0 [facility] Comment on above: Performed By: #### C MP, BNP ####[facility] Feytsqzxde06[address] [place], [place] [address]Dr. Abiel Clement Creatinine [Mass/Vol] 1.19 mg/dL Critically high 0.55-1.[address] [facility] Comment on above: Performed By: #### C MP, BNP ####[facility] Bkwoqxrckz[address] [place], [place] [address]Dr. Abiel Clement EGFR-AF PALAUAN 56 mL/min/1.73m2 Critically low >=[address] [facility] Comment on above: Performed By: #### C MP, BNP ####[facility] Gvdmxhstce[address] [place], [place] [address]Dr. Abiel Clement EGFR-NON AF PALAUAN 46 mL/min/1.73m2 Critically low >=[address] [facility] Comment on above: Performed By: #### C MP, BNP ####[facility] Sviehskjng33[address] [place], [place] [address]Dr. Abiel Clement Globulin (S) [Mass/Vol] 3.7 g/dL Normal [facility] Comment on above: Performed By: #### C MP, BNP ####[facility] Lvtasslriw317[address] [place], [place] [address]Dr. Abiel Clement Glucose [Mass/Vol] 447 mg/dL Critically high 74-106 [facility] Comment on above: Performed By: #### C MP, BNP ####[facility] Kdxbbgicxr9[address] [place], [place] [address]Dr. Abiel Clement Potassium [Moles/Vol] 5.3 mmol/L Critically high 3.5-5.[address] [facility] Comment on above: Performed By: #### C MP, BNP ####[facility] Ovpdshjsds27[address] [place], [place] [address]Dr. Abiel Clement Protein [Mass/Vol] 6.1 g/dL Critically low 6.4-8.2 Th [facility] Comment on above: Performed By: #### C MP, BNP ####[facility] Mcqtpvxvlj802[address] [place], [place] [address]Dr. Abiel Clement Sodium [Moles/Vol] 131 mmol/L Critically low 136-145 Th [facility] Comment on above: Performed By: #### C MP, BNP ####[facility] Lnqrmzfqlo97[address] [place], [place] [address]Dr. Abiel Clement Urea nitrogen [Mass/Vol] 36.0 mg/dL Critically high 7.0-18.[address] [facility] Comment on above: Performed By: #### C MP, BNP ####[facility] Hbgrhwfupx965[address] [place], [place] [address]Dr. Abiel Clement Urea nitrogen/Creatinine [Mass ratio] 30.3 mg/mg Normal [facility] Comment on above: Performed By: #### C MP, BNP ####[facility] Bylvhpdbjl57[address] [place], [place] [address]Dr. Abiel Clement Albumin [Mass/Vol] 3.1 g/dL Critically low 3.4-5.[address] [facility] Comment on above: Performed By: #### B BUILDINGS AND GROUNDS DIRECTOR, CMP ####[facility] Wnmvmavfxb400[address] [place], [place] [address]Dr. Abiel Clement Albumin/Globulin [Mass ratio] 0.7 {ratio} Normal [facility] Comment on above: Performed By: #### B BUILDINGS AND GROUNDS DIRECTOR, CMP ####[facility] Kkmubjaely138[address] [place], [place] [address]Dr. Abiel Clement ALP [Catalytic activity/Vol] 161 U/L Critically high 46-[address] [facility] Comment on above: Performed By: #### B BUILDINGS AND GROUNDS DIRECTOR, CMP ####[facility] Qyzwgyybfx2[address] [place], [place] [address]Dr. Abiel Clement ALT [Catalytic activity/Vol] 22 U/L Normal 14-[address] [facility] Comment on above: Performed By: #### B BUILDINGS AND GROUNDS DIRECTOR, CMP ####[facility] L[address]vqhbmhj[address] [place] [id number]. Abiel Clement Anion gap [Moles/Vol] 13.5 mmol/L Normal [facility] Comment on above: Performed By: #### B BUILDINGS AND GROUNDS DIRECTOR, CMP ####[facility] Cdgumvamul[address] [place], [place] [address]Dr. Abiel Clement AST [Catalytic activity/Vol] 41 U/L Critically high 15-37 [facility] Comment on above: Performed By: #### B BUILDINGS AND GROUNDS DIRECTOR, CMP ####[facility] Sonlaffvqr36[address] [place], [place] [address]Dr. Suyapaviviana Clement Bilirubin [Mass/Vol] 0.5 mg/dL Normal 0.2-1.[address] [facility] Comment on above: Performed By: #### B BUILDINGS [employer] GROUNDS DIRECTOR, CMP ####[facility] Quyydcwatf12[address] [place], [place] [address]Dr. Abiel Clement Calcium [Mass/Vol] 9.4 mg/dL Normal 8.5-10.1 [facility] Comment on above: Performed By: #### B BUILDINGS AND GROUNDS DIRECTOR, CMP ####[facility] Alnclbprhq[address] [place], [place] [address]Dr. Abiel Clement Chloride [Moles/Vol] 98 mmol/L Normal 98-[address] [facility] Comment on above: Performed By: #### B BUILDINGS AND GROUNDS DIRECTOR, CMP ####[facility] Eyfvaafaap[address] [place], [place] [address]Dr. Abiel Clement CO2 [Moles/Vol] 27.0 mmol/L Normal 21.0-32.0 [facility] Comment on above: Performed By: #### B BUILDINGS AND GROUNDS DIRECTOR, CMP ####[facility] Eebemfujad[address] [place], [place] [address]Dr. Abiel Clement Creatinine [Mass/Vol] 1.08 mg/dL Critically high 0.55-1.[address] [facility] Comment on above: Performed By: #### B BUILDINGS AND GROUNDS DIRECTOR, CMP ####[facility] Ytzkftnxyq64[address] [place], [place] [address]Dr. Abiel Clement EGFR-AF PALAUAN >60 Normal >=60 [facility] Comment on above: Performed By: #### B BUILDINGS AND GROUNDS DIRECTOR, CMP ####[facility] Fveawicyny1220 [place] [id number]. Abiel Clement EGFR-NON AF PALAUAN 51 mL/min/1.73m2 Critically low >=[address] [facility] Comment on above: Performed By: #### B BUILDINGS AND GROUNDS DIRECTOR, CMP ####[facility] Cgkdufozyb5707 [place] [id number]. Abiel Clement Globulin (S) [Mass/Vol] 4.2 g/dL Normal [facility] Comment on above: Performed By: #### B BUILDINGS AND GROUNDS DIRECTOR, CMP ####[facility] Pyorxhzwxk5[address] [place] [address]Dr. Abiel Clement Glucose [Mass/Vol] 173 mg/dL Critically high 74-106 T [facility] Comment on above: Performed By: #### B BUILDINGS AND GROUNDS DIRECTOR, CMP ####[facility] Plnpfzmzov[address] [place], [place] [address]Dr. Abiel Clement Potassium [Moles/Vol] 4.5 mmol/L Normal 3.5-5.[address] [facility] Comment on above: Performed By: #### B BUILDINGS AND GROUNDS DIRECTOR, CMP ####[facility] Kaebrvndii[address] [place], [place] [address]Dr. Abiel Clement Protein [Mass/Vol] 7.3 g/dL Normal 6.4-8.2 [facility] Comment on above: Performed By: #### B BUILDINGS AND GROUNDS DIRECTOR, CMP ####[facility] Ypjsgnalob[address] [place], [place] [address]Dr. Abiel Clement Sodium [Moles/Vol] 134 mmol/L Critically low 136-[address] [facility] Comment on above: Performed By: #### B BUILDINGS AND GROUNDS DIRECTOR, CMP ####[facility] Foiizxvrxk[address] [place], [place] [address]Dr. Abiel Clement Urea nitrogen [Mass/Vol] 37.0 mg/dL Critically high 7.0-18.[address] [facility] Comment on above: Performed By: #### B BUILDINGS AND GROUNDS DIRECTOR, CMP ####[facility] Domjnlqmph[address] [place], [place] [address]Dr. Abiel Clement Urea nitrogen/Creatinine [Mass ratio] 34.3 mg/mg Normal [facility] Comment on above: Performed By: #### B BUILDINGS AND GROUNDS DIRECTOR, CMP ####[facility] Tpjsqdyuso[address] [place] [address]Dr. Abiel Clement XR ANKLE RT MIN 3 VIEWSon XR ANKLE RT MIN 3 VIEWS Normal [facility] XR CHEST 1 Von 03-13-2022 XR CHEST 1 V Normal [facility] XR FOOT RT MIN 3 VIEWSon XR FOOT RT MIN 3 VIEWS Normal [facility] CBC AUTO DIFFon 03-12-2022 BASO # 0.1 103/ul Normal 0.0-0.1 [facility] Comment on above: Performed By: #### C BC ####[facility] Xbxeqrpmxr[address] [place], [place] [address]Dr. Abiel Clement Basophils/100 WBC (Bld) 0.7 % Normal 0.2-2.0 [facility] Comment on above: Performed By: #### C BC ####[facility] Jqujsarsni[address] [place], [place] [address]Dr. Abiel Clement EO # 0.2 103/ul Normal 0.0-0.7 [facility] Comment on above: Performed By: #### C BC ####[facility] Muaiicgbeh[address] [place], [place] [address]DrKasia Clement Eosinophils/100 WBC (Bld) 2.1 % Normal 0.9-7.0 [facility] Comment on above: Performed By: #### C BC ####[facility] Swifheippe[address] [place], [place] [address]DrKasia Clement Erythrocyte distribution width (RBC) [Ratio] 13.1 % Normal 11.0-15.0 [facility] Comment on above: Performed By: #### C BC ####[facility] Bvsqymmzve[address] [place], [place] [address]DrKasia Clement Hematocrit (Bld) [Volume fraction] 33.9 % Critically low 36.0-48.0 [facility] Comment on above: Performed By: #### C BC ####[facility] Mbubfovqfz89[address] [place], [place] [address]Dr. Abiel Clement Hemoglobin (Bld) [Mass/Vol] 11.0 g/dL Critically low 12.0-16.0 [facility] Comment on above: Performed By: #### C BC ####[facility] Lbfvhwxqwe3[address] [place] [address]Dr. Abiel Clement IG # 0.04 10e3/ul Critically high 0.00-0.03 [facility] Comment on above: Performed By: #### C BC ####[facility] Jvkkrfkxiw69[address] [place] [address]Dr. Abiel Clement IG % 0.4 % Normal 0.0-0.5 [facility] Comment on above: Performed By: #### C BC ####[facility] Smqlqixfxl[address] [place], [place] [address]Dr. Abiel Clement LYMPH # 2.0 103/ul Normal 1.2-3.8 [facility] Comment on above: Performed By: #### C BC ####[facility] Dnatzrgcls85[address] [place], [place] [address]Dr. Abiel Clement Lymphocytes/100 WBC (Bld) 20.0 % Critically low 20.5-60.0 [facility] Comment on above: Performed By: #### C BC ####[facility] Mmwpussuuy[address] [place], [place] [address]Dr. Abiel Clement MANUAL DIFF REQ NO Normal [facility] Comment on above: Performed By: #### C BC ####[facility] Cgpatkcmfz324[address] [place], [place] [address]Dr. Abiel Clement MCH (RBC) [Entitic mass] 29.5 pg Normal 26.7-34.0 [facility] Comment on above: Performed By: #### C BC ####[facility] Zloxulzwfx614[address] [place], [place] [address]Dr. Abiel Clement MCHC (RBC) [Mass/Vol] 32.4 g/dL Normal 29.9-35.2 [facility] Comment on above: Performed By: #### C BC ####[facility] Xmgrlmtbhm364[address] [place], [place] [address]Dr. Abiel Clement MCV (RBC) [Entitic vol] 90.9 fL Normal 81.0-99.0 [facility] Comment on above: Performed By: #### C BC ####[facility] [address]qpocjgge[address] [place] [address]DrKasia Abiel Clement MONO # 1.0 103/ul Critically high 0.3-0.8 [facility] Comment on above: Performed By: #### C BC ####[facility] Odtmstjpws[address] [place], [place] [address]Dr. Abiel Urbano Monocytes/100 WBC (Bld) 10.3 % Normal 1.7-12.0 [facility] Comment on above: Performed By: #### C BC ####[facility] Xotlcvubok[address] [place], [place] [address]Dr. Abiel Clement NEUT # 6.5 103/ul Normal 1.4-6.5 [facility] Comment on above: Performed By: #### C BC ####[facility] Lkevbuudue[address] [place], [place] [address]Dr. Abiel Urbano Neutrophils/100 WBC (Bld) 66.5 % Normal 43.0-75.0 [facility] Comment on above: Performed By: #### C BC ####[facility] Hnmzmjcqfo[address] [place], [place] [address]Dr. Abiel Urbano Platelet mean volume (Bld) [Entitic vol] 10.8 fL Normal 9.5-13.5 [facility] Comment on above: Performed By: #### C BC ####[facility] Rybtjtlvim[address] [place], [place] [address]Dr. Suyapaviviana Urbano PLT 278 103/ul Normal 150-450 [facility] Comment on above: Performed By: #### C BC ####[facility] Muyeahkkkx[address] [place], [place] [address]DrKasia Daleviviana Urbano RBC 3.73 106/ul Critically low 4.20-5.40 [facility] Comment on above: Performed By: #### C BC ####[facility] Lanhavnvjf[address] [place], [place] [address]Dr. Abiel Clement WBC 9.7 103/ul Normal 4.0-11.[address] [facility] Comment on above: Performed By: #### C BC ####[facility] Igvdiixevx25[address] [place] [address]DrKasia Clement PROF CHEM 8 (BAS METB)on Anion gap [Moles/Vol] 11.5 mmol/L Normal [facility] Comment on above: Performed By: #### B MP ####[facility] Bphzjxspmr66[address] [place] [address]Dr. Abiel Clement Calcium [Mass/Vol] 8.9 mg/dL Normal 8.5-10.1 [facility] Comment on above: Performed By: #### B MP ####[facility] Xmsaaaxtjs[address] [place] [address]Dr. Abiel Clement Chloride [Moles/Vol] 102 mmol/L Normal 98-[address] [facility] Comment on above: Performed By: #### B MP ####[facility] Awxqunsmvb409[address] [place], [place] [address]Dr. Abiel Clement CO2 [Moles/Vol] 28.4 mmol/L Normal 21.0-32.0 [facility] Comment on above: Performed By: #### B MP ####[facility] Trnwjlbiyt038[address] [place], [place] [address]Dr. Abiel Clement Creatinine [Mass/Vol] 1.10 mg/dL Critically high 0.55-1.[address] [facility] Comment on above: Performed By: #### B MP ####[facility] Sjkbriswnf[address] [place] [address]DrKasia Clement EGFR-AF PALAUAN >60 Normal >=60 [facility] Comment on above: Performed By: #### B MP ####[facility] Hgxsdsjvyh[address] [place], [place] [address]DrKasia Clement EGFR-NON AF PALAUAN 50 mL/min/1.73m2 Critically low >=60 [facility] Comment on above: Performed By: #### B MP ####[facility] Mqzrjpifip9[address] [place], [place] [address]Dr. Abiel Clement Glucose [Mass/Vol] 106 mg/dL Normal 74-106 [facility] Comment on above: Performed By: #### B MP ####[facility] [address]oxvqlzq[address] [place] [address]Dr. Abiel Clement Potassium [Moles/Vol] 3.9 mmol/L Normal 3.5-5.[address] [facility] Comment on above: Performed By: #### B MP ####[facility] Sbknoonkde3406 [place] [address]Dr. Abiel Clement Sodium [Moles/Vol] 138 mmol/L Normal 136-145 [facility] Comment on above: Performed By: #### B MP ####[facility] Igkhzshfod[address] [place], [place] [address]Dr. Abiel Clement Urea nitrogen [Mass/Vol] 38.0 mg/dL Critically high 7.0-18.[address] [facility] Comment on above: Performed By: #### B MP ####[facility] Wybcarwapr[address] [place], [place] [address]Dr. Abiel Clement Urea nitrogen/Creatinine [Mass ratio] 34.5 mg/mg Normal [facility] Comment on above: Performed By: #### B MP ####[facility] Hfhvcgxbwr[address] [place], [place] [address]Dr. Abiel Clement XR FOOT LT MIN 3 VIEWSon -2021 XR FOOT LT MIN 3 VIEWS Normal [facility] POINT OF CARE GLUCOSEon 0 Glucose [Mass/Vol] 389 mg/dL Critically high 74-106 [facility] Comment on above: Performed By: #### P OCGLUC ####[facility] Djngvtgzzk[address] [place] [address]Dr. Abiel Clement Glucose [Mass/Vol] 414 mg/dL Critically high 74-106 [facility] Comment on above: Performed By: #### P OCGLUC ####[facility] Rgrkmaqjyx45[address] [place] [address]Dr. Abiel Clement Glucose [Mass/Vol] 295 mg/dL Critically high 74-106 [facility] Comment on above: Performed By: #### P OCGLUC ####[facility] [address]oektzssw[address] [place] [id number]. Abiel Clement Glucose [Mass/Vol] 323 mg/dL Critically high 74-106 T [facility] Comment on above: Performed By: #### P OCGLUC ####[facility] Mdzrhxhlut[address] [place] [id number]. Abiel Clement Covid-19 PCR (CVDTB)on SARS-CoV-2 (COVID-19) RNA CLARIBEL+probe Ql (Unsp spec) Not detected Normal NOT DETECTED [facility] Comment on above: Result Comment: When [...] for this test is supported by the [place] of Health and Human Service's declaration that [...] be used). Performed By: #### C VDTBH ####[facility] Eddloctgzz[address] [place] [address]Dr. Abiel Clement CBC AUTO DIFFon 03-01-2022 BASO # 0.1 103/ul Normal 0.0-0.1 [facility] Comment on above: Performed By: #### C BC ####[facility] [address] [place], [place] [address]Dr. Abiel Clement Basophils/100 WBC (Bld) 0.7 % Normal 0.2-2.0 [facility] Comment on above: Performed By: #### C BC ####[facility] Mnxbwrxrde[address] [place] [address]Dr. Abiel Clement EO # 0.2 103/ul Normal 0.0-0.7 [facility] Comment on above: Performed By: #### C BC ####[facility] Fgbmkepnan218[address] [place], [place] [address]Dr. Abiel Clement Eosinophils/100 WBC (Bld) 2.6 % Normal 0.9-7.0 [facility] Comment on above: Performed By: #### C BC ####[facility] Ncadjutwlg416[address] [place], [place] [address]Dr. Abiel Clement Erythrocyte distribution width (RBC) [Ratio] 13.2 % Normal 11.0-15.0 [facility] Comment on above: Performed By: #### C BC ####[facility] Pltdvqzrgt448[address] [place], [place] [address]Dr. Abiel Clement Hematocrit (Bld) [Volume fraction] 42.4 % Normal 36.0-48.0 [facility] Comment on above: Performed By: #### C BC ####[facility] Nqnxjovziu[address] [place], [place] [address]Dr. Abiel Clement Hemoglobin (Bld) [Mass/Vol] 13.9 g/dL Normal 12.0-16.0 [facility] Comment on above: Performed By: #### C BC ####[facility] Blqpfwdvbx725[address] [place], [place] [address]Dr. Abiel Clement IG # 0.02 10e3/ul Normal 0.00-0.03 [facility] Comment on above: Performed By: #### C BC ####[facility] Pejbnkhdhb515[address] [place], [place] [address]Dr. Abiel Clement IG % 0.3 % Normal 0.0-0.5 [facility] Comment on above: Performed By: #### C BC ####[facility] Mizktubgxx14[address] [place], [place] [address]Dr. Abiel Clement LYMPH # 1.8 103/ul Normal 1.2-3.8 [facility] Comment on above: Performed By: #### C BC ####[facility] Ctdamvgolr9374 [place] [id number]. Abiel Urbano Lymphocytes/100 WBC (Bld) 24.1 % Normal 20.5-60.0 [facility] Comment on above: Performed By: #### C BC ####[facility] Hgfjlaeheb4401 [place] [address]Dr. Abiel Urbano MANUAL DIFF REQ NO Normal [facility] Comment on above: Performed By: #### C BC ####[facility] Mlzyvgzwqu9767 [place] [id number]. Abiel Urbano MCH (RBC) [Entitic mass] 29.4 pg Normal 26.7-34.0 [facility] Comment on above: Performed By: #### C BC ####[facility] Ioeuolaitt205[address] [place], [place] [address]Dr. Abiel Urbano MCHC (RBC) [Mass/Vol] 32.8 g/dL Normal 29.9-35.2 [facility] Comment on above: Performed By: #### C BC ####[facility] Dcdtlgjltz2591 [place] [address]Dr. Abiel Urbano MCV (RBC) [Entitic vol] 89.8 fL Normal 81.0-99.0 [facility] Comment on above: Performed By: #### C BC ####[facility] Soamzicgdi0115[address] [place], [place] [address]Dr. Suyapaviviana Urbano MONO # 0.7 103/ul Normal 0.3-0.8 [facility] Comment on above: Performed By: #### C BC ####[facility] Favjkisyjc1555 [place] [address]Dr. Suyapaviviana Clement Monocytes/100 WBC (Bld) 9.2 % Normal 1.7-12.0 [facility] Comment on above: Performed By: #### C BC ####[facility] Fwksilsdpu916[address] [place], [place] [address]Dr. Abiel Clement NEUT # 4.6 103/ul Normal 1.4-6.5 [facility] Comment on above: Performed By: #### C BC ####[facility] Jklgysnzbl0674 [place] [address]Dr. Abiel Clement Neutrophils/100 WBC (Bld) 63.1 % Normal 43.0-75.[address] [facility] Comment on above: Performed By: #### C BC ####[facility] Mbuxmfnebb4284 [place] [address]Dr. Abiel Clement Platelet mean volume (Bld) [Entitic vol] 11.4 fL Normal 9.5-13.5 [facility] Comment on above: Performed By: #### C BC ####[facility] Mlxutqosii397[address] [place], [place] [address]Dr. Abiel Clement PLT 309 103/ul Normal 150-[address] [facility] Comment on above: Performed By: #### C BC ####[facility] Hvawbmfyed79[address] [place], [place] [address]Dr. Abiel Clement RBC 4.72 106/ul Normal 4.20-5.[address] [facility] Comment on above: Performed By: #### C BC ####[facility] Qeovubjsea969[address] [place], [place] [address]Dr. Abiel Clement WBC 7.3 103/ul Normal 4.0-11.[address] [facility] Comment on above: Performed By: #### C BC ####[facility] Nsktmauijw[address] [place], [place] [address]Dr. Abiel Clement PROF CHEM 8 (BAS METB)on Anion gap [Moles/Vol] 12.2 mmol/L Normal [facility] Comment on above: Performed By: #### B MP ####[facility] Rbwkllachh39[address] [place], [place] [address]Dr. Abiel Clement Calcium [Mass/Vol] 9.2 mg/dL Normal 8.5-10.1 [facility] Comment on above: Performed By: #### B MP ####[facility] Stsykccfkc[address] [place], [place] [address]Dr. Abiel Clement Chloride [Moles/Vol] 102 mmol/L Normal 98-[address] [facility] Comment on above: Performed By: #### B MP ####[facility] Whjlvfxcbq2224 [place] [address]Dr. Abiel Clement CO2 [Moles/Vol] 26.9 mmol/L Normal 21.0-32.0 [facility] Comment on above: Performed By: #### B MP ####[facility] Mdphqgucgm4577 [place] [address]Dr. Abiel Clement Creatinine [Mass/Vol] 0.99 mg/dL Normal 0.55-1.02 [facility] Comment on above: Performed By: #### B MP ####[facility] Utmsjyycil[address] [place] [address]Dr. Abiel Urbano EGFR-AF PALAUAN >=60 Normal >=60 [facility] Comment on above: Performed By: #### B MP ####[facility] Pmpguzyjig9115 [place] [address]Dr. Abiel Urbano EGFR-NON AF PALAUAN 57 mL/min/1.73m2 Critically low >=60 [facility] Comment on above: Performed By: #### B MP ####[facility] Pnvjaheper1114[address] [place], [place] [address]Dr. Abiel Clement Glucose [Mass/Vol] 103 mg/dL Normal 74-[address] [facility] Comment on above: Performed By: #### B MP ####[facility] Xfzklqezyj414[address] [place], [place] [address]Dr. Abiel Clement Potassium [Moles/Vol] 4.1 mmol/L Normal 3.5-5.1 [facility] Comment on above: Performed By: #### B MP ####[facility] Ivtibtijjx2397 [place] [address]Dr. Abiel Clement Sodium [Moles/Vol] 137 mmol/L Normal 136-[address] [facility] Comment on above: Performed By: #### B MP ####[facility] Kmwibaonxv258[address] [place], [place] [address]Dr. Abiel Clement Urea nitrogen [Mass/Vol] 27.0 mg/dL Critically high 7.0-18.0 [facility] Comment on above: Performed By: #### B MP ####[facility] Mupsbqgski3884 [place] [address]Dr. Abiel Clement Urea nitrogen/Creatinine [Mass ratio] 27.3 mg/mg Normal [facility] Comment on above: Performed By: #### B MP ####[facility] Xtjsdjwhls6164 [place] [address]Dr. Abiel Clement PROTIMEon 03-01-2022 INR Coag (PPP) [Relative time] 0.97 {INR} Normal [facility] Comment on above: Performed By: #### P TT, PT ####[facility] Zkwirbrduq546[address] [place], [place] [address]Dr. Abiel Clement INR GUIDELINES SEE BELOW Normal [facility] Comment on above: Result Comment: GELY RED INR: 2.0 - 3.0 CONDITIONS NOT LISTED BELOW 2.5 - 3.5 FOR PROSTHETIC HEART VALVE REPLACEMENT 2.5 - 3.5 RECURRENT THROMBOSIS Performed By: #### P TT, PT ####[facility] Ajbeqxflhz037[address] [place], [place] [address]Dr. Abiel Clement PT Coag (PPP) [Time] 10.5 s Normal 9.0-11.6 [facility] Comment on above: Performed By: #### P TT, PT ####[facility] Ivyoosqdjd919[address] [place], [place] [address]Dr. Abiel Clement PTTon 03-01-2022 aPTT Coag (Bld) [Time] 24.8 s Normal 22.3-36.2 [facility] Comment on above: Performed By: #### P TT, PT ####[facility] Xmcrkxptrx[address] [place], [place] [address]Dr. Abiel Clement US CAROTID ART BILon 022 US CAROTID ART VIC Normal The [facility] XR FOOT VIC MIN 3 VIEWSon XR FOOT VIC MIN 3 VIEWS Normal [facility] AMYLASEon 11-03-2021 Amylase [Catalytic activity/Vol] 66 U/L Normal 31-110 [facility] Comment on above: Performed By: #### C MP, BENNY, LIPA ####[facility] Kwtevkbnqn9828[address] [place], [place] [address]Dr. Abiel Clement CBC AUTO DIFFon 11-03-2021 BASO # 0.1 103/ul Normal 0.0-0.1 [facility] Comment on above: Performed By: #### C BC ####[facility] Naaybmxwgr387[address] [place], [place] [address]Dr. Suyapaviviana Clement Basophils/100 WBC (Bld) 1.1 % Normal 0.2-2.0 [facility] Comment on above: Performed By: #### C BC ####[facility] Xmflbmekmb232[address] [place], [place] [address]Dr. Abiel Clement EO # 0.1 103/ul Normal 0.0-0.7 [facility] Comment on above: Performed By: #### C BC ####[facility] Kfpqzavjzo33[address] [place], [place] [address]Dr. Abiel Clement Eosinophils/100 WBC (Bld) 2.5 % Normal 0.9-7.0 [facility] Comment on above: Performed By: #### C BC ####[facility] Paiiyuejlg86[address] [place], [place] [address]Dr. Abiel Clement Erythrocyte distribution width (RBC) [Ratio] 14.6 % Normal 11.0-15.0 [facility] Comment on above: Performed By: #### C BC ####[facility] Krezsjjvkh840[address] [place], [place] [address]Dr. Abiel Clement Hematocrit (Bld) [Volume fraction] 47.4 % Normal 36.0-48.0 [facility] Comment on above: Performed By: #### C BC ####[facility] Czqipipcnb25[address] [place], [place] [address]Dr. Suyapaviviana Clement Hemoglobin (Bld) [Mass/Vol] 15.4 g/dL Normal 12.0-16.0 [facility] Comment on above: Performed By: #### C BC ####[facility] Vxtneczbol[address] [place], [place] [address]Dr. Abiel Clement IG # 0.01 10e3/ul Normal 0.00-0.03 [facility] Comment on above: Performed By: #### C BC ####[facility] Jguhmlgrxk2313 [place] [id number]. Abiel Clement IG % 0.2 % Normal 0.0-0.5 [facility] Comment on above: Performed By: #### C BC ####[facility] Pqijbeasht3155 [place] [address]Dr. Abiel Clement LYMPH # 1.6 103/ul Normal 1.2-3.8 [facility] Comment on above: Performed By: #### C BC ####[facility] Nlhduvhyds7[address] [place], [place] [address]Dr. Abiel Clement Lymphocytes/100 WBC (Bld) 27.3 % Normal 20.5-60.0 [facility] Comment on above: Performed By: #### C BC ####[facility] Aksecshagb8[address] [place], [place] [address]Dr. Abiel Clement MANUAL DIFF REQ NO Normal [facility] Comment on above: Performed By: #### C BC ####[facility] Jobglphike3378 [place] [address]Dr. Abiel Urbano MCH (RBC) [Entitic mass] 28.1 pg Normal 26.7-34.0 [facility] Comment on above: Performed By: #### C BC ####[facility] Gfxwtxrgzv39[address] [place], [place] [address]Dr. Abiel Urbano MCHC (RBC) [Mass/Vol] 32.5 g/dL Normal 29.9-35.2 [facility] Comment on above: Performed By: #### C BC ####[facility] Bkagfarbyo4509 [place] [address]Dr. Abiel Clement MCV (RBC) [Entitic vol] 86.5 fL Normal 81.0-99.0 [facility] Comment on above: Performed By: #### C BC ####[facility] Kjdwcectxy63[address] [place], [place] [address]Dr. Abiel Clement MONO # 0.5 103/ul Normal 0.3-0.8 [facility] Comment on above: Performed By: #### C BC ####[facility] Fdxysrinxo464[address] [place], [place] [address]Dr. Abiel Clement Monocytes/100 WBC (Bld) 8.5 % Normal 1.7-12.0 [facility] Comment on above: Performed By: #### C BC ####[facility] Oihnjfntac1937 [place] [address]Dr. Abiel Clement NEUT # 3.4 103/ul Normal 1.4-6.5 [facility] Comment on above: Performed By: #### C BC ####[facility] Afsuwyazcc0763 [place] [address]Dr. Abiel Clement Neutrophils/100 WBC (Bld) 60.4 % Normal 43.0-75.0 [facility] Comment on above: Performed By: #### C BC ####[facility] Sqhftfulyn8900 [place] [address]Dr. Abiel Clement Platelet mean volume (Bld) [Entitic vol] 11.6 fL Normal 9.5-13.5 [facility] Comment on above: Performed By: #### C BC ####[facility] Xuqjxhsznp3060 [place] [address]Dr. Abiel Clement PLT 257 103/ul Normal 150-450 [facility] Comment on above: Performed By: #### C BC ####[facility] Sqkdelybga0670 [place] [address]Dr. Abiel Clement RBC 5.48 106/ul Critically high 4.20-5.40 [facility] Comment on above: Performed By: #### C BC ####[facility] Lfovjsifko7720 [place] [address]Dr. Abiel Clement WBC 5.7 103/ul Normal 4.0-11.0 [facility] Comment on above: Performed By: #### C BC ####[facility] Epvuoejpfg7060 [place] [address]Dr. Abiel Clement LIPASEon 11-03-2021 Lipase [Catalytic activity/Vol] 32.0 U/L Normal 23.0-300.0 [facility] Comment on above: Performed By: #### C MP, BENNY, LIPA ####[facility] Avivmavpyu1994 [place] [address]Dr. Abiel Clement PROF 14(COMP METB)on 022 Albumin [Mass/Vol] 3.6 g/dL Normal 3.5-5.0 [facility] Comment on above: Performed By: #### C MP, BENNY, LIPA ####[facility] Ggqlwueqbe9936 [place] [address]Dr. Abiel Clement Albumin/Globulin [Mass ratio] 0.8 {ratio} Normal [facility] Comment on above: Performed By: #### C MP, BENNY, LIPA ####[facility] Dtxjasyity[address] [place], [place] [address]Dr. Abiel Clement ALP [Catalytic activity/Vol] 325 U/L Critically high 38-[address] [facility] Comment on above: Performed By: #### C MP, BENNY, LIPA ####[facility] Otczsqkpuc99[address] [place], [place] [address]Dr. Abiel Clement ALT [Catalytic activity/Vol] 103 U/L Critically high 9-[address] [facility] Comment on above: Performed By: #### C MP, BENNY, LIPA ####[facility] Tifaokppqj398[address] [place], [place] [address]Dr. Abiel Clement Anion gap [Moles/Vol] 13.1 mmol/L Normal [facility] Comment on above: Performed By: #### C MP, BENNY, LIPA ####[facility] Wqemobdtmr50[address] [place], [place] [address]Dr. Abiel Clement AST [Catalytic activity/Vol] 78 U/L Critically high 14-[address] [facility] Comment on above: Performed By: #### C MP, BENNY, LIPA ####[facility] Eobluhvszq94[address] [place], [place] [address]Dr. Abiel Clement Bilirubin [Mass/Vol] 0.4 mg/dL Normal 0.2-1.[address] [facility] Comment on above: Performed By: #### C MP, BENNY, LIPA ####[facility] Kapbkrlqas26[address] [place], [place] [address]Dr. Abiel Clement Calcium [Mass/Vol] 9.6 mg/dL Normal 8.4-10.2 [facility] Comment on above: Performed By: #### C BENNY PEDERSEN LIPA ####[facility] Jjfluehlvo0287 [place] [address]Dr. Abiel Clement Chloride [Moles/Vol] 102 mmol/L Normal 98-[address] [facility] Comment on above: Performed By: #### C SLAVA BENNY, LIPA ####[facility] Kvteojplic6023 [place] [address]Dr. Abiel Clement CO2 [Moles/Vol] 21.5 mmol/L Critically low 22.0-30.[address] [facility] Comment on above: Performed By: #### C BENNY PEDERSEN LIPA ####[facility] Rbucknxskr[address] [place], [place] [address]Dr. Abiel Clement Creatinine [Mass/Vol] 1.51 mg/dL Critically high 0.52-1.[address] [facility] Comment on above: Performed By: #### C SLAVA BENNY, LIPA ####[facility] Hupznnqfpb4139 [place] [address]Dr. Abiel Clement EGFR-AF PALAUAN 42 mL/min/1.73m2 Critically low >=[address] [facility] Comment on above: Performed By: #### C BENNY PEDERSEN, LIPA ####[facility] Pnrkkrxjww94[address] [place], [place] [address]Dr. Abiel Clement EGFR-NON AF PALAUAN 35 mL/min/1.73m2 Critically low >=60 [facility] Comment on above: Performed By: #### C SLAVA BENNY, LIPA ####[facility] Rubvooehkk6156 [place] [address]Dr. Abiel Clement Globulin (S) [Mass/Vol] 4.5 g/dL Normal [facility] Comment on above: Performed By: #### C MP BENNY, LIPA ####[facility] Zohxlodiwu4792 [place] [address]Dr. Abiel Clement Glucose [Mass/Vol] 167 mg/dL Critically high 74-106 [facility] Comment on above: Performed By: #### C SLAVA BENNY, LIPA ####[facility] Tzrdvwujqh7410 [place] [address]Dr. Abiel Clement Potassium [Moles/Vol] 4.6 mmol/L Normal 3.4-5.[address] [facility] Comment on above: Performed By: #### C MP, BENNY, LIPA ####[facility] Cruhclqhfo0628 [place] [address]Dr. Abiel Clement Protein [Mass/Vol] 8.1 g/dL Normal 6.1-8.2 [facility] Comment on above: Performed By: #### C MP, BENNY, LIPA ####[facility] Mexalsfaue9834 [place] [address]Dr. Abiel Clement Sodium [Moles/Vol] 132 mmol/L Critically low 137-145 Th [facility] Comment on above: Performed By: #### C MP, BENNY, LIPA ####[facility] Ethgfvzkab8788 [place] [address]Dr. Abiel Clement Urea nitrogen [Mass/Vol] 35.0 mg/dL Critically high 7.0-17.[address] [facility] Comment on above: Performed By: #### C SLAVA, BENNY, LIPA ####[facility] Oejconbopp0620 [place] [address]Dr. Abiel Clement Urea nitrogen/Creatinine [Mass ratio] 23.2 mg/mg Normal [facility] Comment on above: Performed By: #### C MP, BENNY, LIPA ####[facility] Owqcnwjswc0623 [place] [address]Dr. Abiel Clement XR ABD FLAT UP_PA Tl 11-03 XR ABD FLAT UP_PA CH Normal [facility] XR FOOT LT MIN 3 VIEWSon XR FOOT LT MIN 3 VIEWS Normal [facility] COMPREHENSIVE METABOLIC PANE Neftali 09-23-2021 Albumin [Mass/Vol] 4.1 g/dL Normal 3.6-5.1 [facility] Comment on above: Performed By: #### 1 1951, 2120 #### [facility] [address], [address] [place] [address] [employer] Supervisor: Christian Dove MD Albumin/Globulin [Mass ratio] 1.2 {ratio} Normal 1.0-2.5 [facility] Comment on above: Performed By: #### 1 0231, 7600 #### [facility] of [address], [address] [place] [address] [employer] Supervisor: Christian Dove MD ALP [Catalytic activity/Vol] 206 U/L High 37-153 [facility] Comment on above: Performed By: #### 1 0231, 7600 #### [facility] of [address], [address] [place] [address] [employer] Supervisor: Christian Dove MD ALT [Catalytic activity/Vol] 32 U/L High 6-29 [facility] Comment on above: Result Comment: NO C OLLECTION DATE RECEIVED. WE HAVE USED THE DATE THE SPECIMEN WAS RECEIVED BY THIS LABORATORY THE COLLECTION DATE. IF THIS IS INCORRECT, PLEASE CONTACT CLIENT SERVICES. PHONE NUMBER: [phone] Performed By: #### 1 0231, 7600 #### [facility] of [address], [address] [place] [address] [employer] Supervisor: Christian Dove MD AST [Catalytic activity/Vol] 28 U/L Normal 10-35 [facility] Comment on above: Performed By: #### 1 0231, 7600 #### [facility] of [address], [address] [place] [address] [employer] Supervisor: Christian Dove MD Bilirubin [Mass/Vol] 0.5 mg/dL Normal 0.2-1.2 [facility] Comment on above: Performed By: #### 1 0231, 7600 #### [facility] [address], [address] [place] [address] [employer] Supervisor: Christian Dove MD BUN/CREATININE RATIO NOT APPLICABLE Normal 6-22 [facility] Comment on above: Performed By: #### 1 0231, 7600 #### [facility] [address], [address] [place] [address] [employer] Supervisor: Christian Dove MD Calcium [Mass/Vol] 9.6 mg/dL Normal 8.6-10.4 [facility] Comment on above: Performed By: #### 1 230, 7600 #### [facility] [address], [address] [place] [address] [employer] Supervisor: Christian Dove MD Chloride [Moles/Vol] 101 mmol/L Normal 98-110 [facility] Comment on above: Performed By: #### 1 023, 7600 #### [facility] [address], [address] [place] [address] [employer] Supervisor: Christian Dove MD CO2 [Moles/Vol] 27 mmol/L Normal 20-32 [facility] Comment on above: Performed By: #### 1 023, 7600 #### [facility] [place] [address] [employer] Supervisor: Christian Dove MD Creatinine [Mass/Vol] 0.88 mg/dL Normal 0.50-0.[address] [facility] Comment on above: Result Comment: For patients >49 years of age, the reference limit for Creatinine is approximately 13% higher for people identified as -Ecuad[place]. Performed By: #### 1 230, 0 #### [facility] [place] [address] [employer] Supervisor: Christian Dove MD eGFR NON-AFR. PALAUAN 71 mL/min/1.73m2 Normal > OR = 60 [facility] Comment on above: Performed By: #### 1 230, 7600 #### [facility] [place] [address] [employer] Supervisor: Christian Dove MD GFR/1.73 sq M.predicted among blacks MDRD (S/P/Bld) [Vol rate/Area] 82 mL/min/{1.73_m2} Normal > OR = 60 [facility] Comment on above: Performed By: #### 1 230, 7600 #### [facility] [place] [address] [employer] Supervisor: Christian Dove MD Globulin (S) [Mass/Vol] 3.3 g/dL Normal 1.9-3.7 [facility] Comment on above: Performed By: #### 1 023, 7600 #### [facility] of [place] [address] [employer] Supervisor: Christian Dove MD Glucose [Mass/Vol] 269 mg/dL High 65-99 [facility] Comment on above: Result Comment: Fasting reference interval For someone without known diabetes, a glucose value >125 mg/dL indicates that they may have diabetes and this should be confirmed with a follow-up test. Performed By: #### 1 023, 7600 #### [facility] [place] [address] [employer] Supervisor: Christian Dove MD Potassium [Moles/Vol] 4.3 mmol/L Normal 3.5-5.[address] [facility] Comment on above: Performed By: #### 1 230, 7599 #### [facility] of [place] [address] [employer] Supervisor: Christian Dove MD Protein [Mass/Vol] 7.4 g/dL Normal 6.1-8.1 [facility] Comment on above: Performed By: #### 1 023, 7600 #### [facility] [place] [address] [employer] Supervisor: Christian Dove MD Sodium [Moles/Vol] 135 mmol/L Normal 135-146 [facility] Comment on above: Performed By: #### 1 023, 0 #### [facility] of [place] [address] [employer] Supervisor: Christian Dove MD Urea nitrogen [Mass/Vol] 18 mg/dL Normal 7-25 [facility] Comment on above: Performed By: #### 1 023, 7600 #### [facility] [place] [address] [employer] Supervisor: Christian Dove MD LIPID PANEL, STANDARD 09-05 Cholesterol [Mass/Vol] 123 mg/dL Normal <200 [facility] Comment on above: Performed By: #### 1 023, 7600 #### [facility] [place] [address] [employer] Supervisor: Christian Dove MD Cholesterol in HDL [Mass/Vol] 36 mg/dL Low > OR = 50 [facility] Comment on above: Performed By: #### 1 230, 0 #### [facility] [address], [address] [place] [address] [employer] Supervisor: Christian Dove MD Cholesterol in LDL [Mass/Vol] 65 mg/dL Normal [facility] Comment on above: Result Comment: Refe rence range: <100 Desirable range <100 mg/dL for primary prevention; <70 mg/dL for patients with CHD or diabetic patients with > or = 2 CHD risk factors. LDL-C is now calculated using the Ciro-Fox calculation, which is a validated novel method providing better accuracy than the Friedewald equation in the estimation of LDL-C. Ciro PENN et al. MARIA T. 2013;310(19): 6488-0782 (http://education.FabZat.com/faq/EZZ978) Performed By: #### 1 230, 0 #### [facility] [place] [address] [employer] Supervisor: Christian Dove MD Cholesterol.total/Cho lesterol in HDL [Mass ratio] 3.4 {ratio} Normal <5.0 [facility] Comment on above: Performed By: #### 1 023, 0 #### [facility] [address], [address] [place] [address] [employer] Supervisor: Christian Dove MD NON HDL CHOLESTEROL 87 mg/dL (calc) Normal <130 [facility] Comment on above: Result Comment: For patients with diabetes plus 1 major ASCVD risk factor, treating to a non-HDL-C goal of <100 mg/dL (LDL-C of <70 mg/dL) is considered a therapeutic option. Performed By: #### 1 023, 7600 #### [facility] [address], [address] [place] [address] [employer] Supervisor: Christian Dove MD Triglyceride [Mass/Vol] 134 mg/dL Normal <150 [facility] Comment on above: Performed By: #### 1 023, 7599 #### [facility] [address], [address] [place] [address] [employer] Supervisor: Christian Dove MD COVID Quick Testingon 2020 Result Positive [employer] Other POC GLUCOSE LABon 07-14-2020 Glucose [Mass/Vol] 311 mg/dL High 70-100 [facility] Comment on above: Performed By: #### 8 5499 #### [facility] [address] [place] [address], [place] Glucose [Mass/Vol] 231 mg/dL High 70-100 [facility] Comment on above: Performed By: #### 8 5499 #### [facility] [place] [address] [place] [address], [place] POC GLUCOSE LABon 07-13-2020 Glucose [Mass/Vol] 173 mg/dL High 70-100 [facility] Comment on above: Performed By: #### 8 5499 #### [facility] [address] [place] [address], [place] Glucose [Mass/Vol] 117 mg/dL High 70-100 [facility] Comment on above: Performed By: #### 3 1792 #### [facility] [place] [address] [place] [address], [place] Glucose [Mass/Vol] 282 mg/dL High 70-100 [facility] Comment on above: Performed By: #### 8 5499 #### [facility] [place] [address] [place] [address], [place] Glucose [Mass/Vol] 288 mg/dL High 70-100 [facility] Comment on above: Performed By: #### 8 5499 ####[facility] [place] [address], [place] POC GLUCOSE LABon 07-12-2020 Glucose [Mass/Vol] 281 mg/dL High 70-100 [facility] Comment on above: Performed By: #### 8 5499 ####[facility] [place] [address], [place] Glucose [Mass/Vol] 102 mg/dL High 70-100 [facility] Comment on above: Performed By: #### 8 5499 ####[facility] [place] [address], [place] Glucose [Mass/Vol] 213 mg/dL High 70-100 [facility] Comment on above: Performed By: #### 8 5499 ####[facility] [place] [address], [place] Glucose [Mass/Vol] 195 mg/dL High 70-100 [facility] Comment on above: Performed By: #### 3 1792 #### [facility] [address] [place] [address], [place] POC GLUCOSE LABon 07-11-2020 Glucose [Mass/Vol] 221 mg/dL High 70-100 [facility] Comment on above: Performed By: #### 8 5499 #### [facility] [place] [address] [place] [address], [place] Glucose [Mass/Vol] 201 mg/dL High 70-100 [facility] Comment on above: Performed By: #### 0 0071, 43877 #### [facility] [address] [place] [address], [place] Glucose [Mass/Vol] 279 mg/dL High 70-100 [facility] Comment on above: Performed By: #### 8 5499 ####[facility] [place] [address], [place] Glucose [Mass/Vol] 214 mg/dL High 70-100 [facility] Comment on above: Performed By: #### 3 1792 #### [facility] [address] [place] [address], [place] POC GLUCOSE LABon 07-10-2020 Glucose [Mass/Vol] 207 mg/dL High 70-100 [facility] Comment on above: Performed By: #### 8 5499 #### [facility] [address] [place] [address], [place] Glucose [Mass/Vol] 119 mg/dL High 70-100 [facility] Comment on above: Performed By: #### 8 5499 #### [facility] [address] [place] [address], [place] Glucose [Mass/Vol] 282 mg/dL High 70-100 [facility] Comment on above: Performed By: #### 8 5499 #### [facility] [place] [address] [place] [address], [place] Glucose [Mass/Vol] 212 mg/dL High 70-100 [facility] Comment on above: Performed By: #### 8 5499 #### [facility] [place] [address] [place] [address], [place] POC GLUCOSE LABon 07-09-2020 Glucose [Mass/Vol] 134 mg/dL High 70-100 [facility] Comment on above: Performed By: #### 8 5499 ####[facility] [place] [address], [place] Glucose [Mass/Vol] 113 mg/dL High 70-100 [facility] Comment on above: Performed By: #### 8 5499 ####[facility] [place] [address], [place] Glucose [Mass/Vol] 158 mg/dL High 70-100 [facility] Comment on above: Performed By: #### 8 5499 ####[facility] [place] [address], [place] Glucose [Mass/Vol] 146 mg/dL High 70-100 [facility] Comment on above: Performed By: #### 3 1792 #### [facility] [place] [address] [place] [place] [address], [place] BASIC METABOLIC PANELon 11-0 Calcium [Mass/Vol] 9.4 mg/dL Normal 8.6-10.3 [facility] Comment on above: Order Comment: No: D o not add to previous draw Performed By: #### 0 0071, 57027 #### [facility] [address] [place] [address], [place] Chloride [Moles/Vol] 102 mmol/L Normal 98-[address] [facility] Comment on above: Order Comment: No: D o not add to previous draw Performed By: #### 0 0071, 63011 #### [facility] [address] [place] [address], [place] CO2 [Moles/Vol] 28 mmol/L Normal 21-31 The [facility] Comment on above: Order Comment: No: D o not add to previous draw Performed By: #### 0 0071, 87984 #### [facility] [place] [address] [place] [address], [place] Creatinine [Mass/Vol] 0.73 mg/dL Normal 0.60-1.[address] [facility] Comment on above: Order Comment: No: D o not add to previous draw Performed By: #### 0 0071, 59851 #### [facility] [place] [address] [place] [address], [place] GFR/1.73 sq M predicted among blacks MDRD (S/P/Bld) [Vol rate/Area] mL/min/{1.73_m2} Normal >[address] [facility] Comment on above: Order Comment: No: D o not add to previous draw Performed By: #### 0 0071, 90057 #### [facility] [place] [address] [place] [address], [place] GFR/1.73 sq M predicted among non-blacks MDRD (S/P/Bld) [Vol rate/Area] mL/min/{1.73_m2} Normal >[address] [facility] Comment on above: Order Comment: No: D o not add to previous draw Performed By: #### 0 0071, 10042 #### [facility] [address] [place] [address], [place] Glucose [Mass/Vol] 162 mg/dL High 70-100 [facility] Comment on above: Order Comment: No: D o not add to previous draw Performed By: #### 0 0071, 59372 #### [facility] [place] [address] [place] [address], [place] Potassium [Moles/Vol] 3.8 mmol/L Normal 3.5-5.[address] [facility] Comment on above: Order Comment: No: D o not add to previous draw Performed By: #### 0 0071, 38329 #### [facility] [address] [place] [address], [place] Sodium [Moles/Vol] 138 mmol/L Normal 136-145 [facility] Comment on above: Order Comment: No: D o not add to previous draw Performed By: #### 0 0071, 43303 #### [facility] [place] [address] [place] [address], [place] Urea nitrogen [Mass/Vol] 15 mg/dL Normal 7-[address] [facility] Comment on above: Order Comment: No: D o not add to previous draw Performed By: #### 0 0071, 64737 #### [facility] [address] [place] [address], [facility] CBC W/DIFFon 07-08-2020 ABS BASOPHILS 0.1 10*3/uL Normal 0.0-0.[address] [facility] Comment on above: Order Comment: No: D o not add to previous draw Performed By: #### 8 [id number] #### [facility] [place] [address] [place] [address], [facility] ABS IMM GRANS 0.0 10*3/uL Normal 0.0-0.[address] [facility] Comment on above: Order Comment: No: D o not add to previous draw Performed By: #### 8 [id number] #### [facility] [place] [address] [place] [address], [facility] ABS NEUTROPHILS 3.5 10*3/uL Normal 1.6-7.6 The [facility] Comment on above: Order Comment: No: D o not add to previous draw Performed By: #### 8 [id number] #### [facility] [place] [address] [facility] [place] [address], [facility] Basophils/100 WBC (Bld) 0.9 % Normal 0.0-1.[address] [facility] Comment on above: Order Comment: No: D o not add to previous draw Performed By: #### 8 [id number] #### [facility] [place] [address] [facility] [place] [address], [facility] Eosinophils (Bld) [#/Vol] 0.3 10*3/uL Normal 0.0-0.[address] [facility] Comment on above: Order Comment: No: D o not add to previous draw Performed By: #### 8 [id number] #### [facility] [place] [address] [place] [address], [facility] Eosinophils/100 WBC (Bld) 3.9 % Normal 0.0-6.[address] [facility] Comment on above: Order Comment: No: D o not add to previous draw Performed By: #### 8 [id number] #### [facility] [address] [place] [address], [facility] Erythrocyte distribution width (RBC) [Ratio] 15.1 % High 11.5-15.[address] [facility] Comment on above: Order Comment: No: D o not add to previous draw Performed By: #### 8 [id number] #### [facility] [address] [place] [address], [facility] Hematocrit (Bld) [Volume fraction] 41.0 % Normal 36.0-45.[address] [facility] Comment on above: Order Comment: No: D o not add to previous draw Performed By: #### 8 [id number] #### [facility] [place] [address] [place] [id number], [facility] Hemoglobin (Bld) [Mass/Vol] 13.0 g/dL Normal 12.0-15.[address] [facility] Comment on above: Order Comment: No: D o not add to previous draw Performed By: #### 8 [id number] #### [facility] [place] [address] [place] [id number], [facility] IMMATURE GRANS 0.5 % Normal 0.0-1.[address] [facility] Comment on above: Order Comment: No: D o not add to previous draw Performed By: #### 8 [id number] #### [facility] [place] [address] [place] [id number], [facility] Lymphocytes (Bld) [#/Vol] 1.8 10*3/uL Normal 1.2-4.[address] [facility] Comment on above: Order Comment: No: D o not add to previous draw Performed By: #### 8 [id number] #### [facility] [place] [address] [place] [id number], [facility] Lymphocytes/100 WBC (Bld) 28.2 % Normal 20.0-45.[address] [facility] Comment on above: Order Comment: No: D o not add to previous draw Performed By: #### 8 [id number] #### [facility] [place] [address] [place] [address], [facility] MCH (RBC) [Entitic mass] 28.6 pg Normal 27.0-33.[address] [facility] Comment on above: Order Comment: No: D o not add to previous draw Performed By: #### 8 [id number] #### [facility] [place] [address] [place] [id number], [facility] MCHC (RBC) [Mass/Vol] 31.7 g/dL Low 32.0-35.[address] [facility] Comment on above: Order Comment: No: D o not add to previous draw Performed By: #### 8 [id number] #### [facility] [place] [address] [place] [address], [facility] MCV (RBC) [Entitic vol] 90.3 fL Normal 82.0-98.[address] [facility] Comment on above: Order Comment: No: D o not add to previous draw Performed By: #### 8 [id number] #### [facility] [place] [address] [place] [address], [facility] Monocytes (Bld) [#/Vol] 0.7 10*3/uL Normal 0.1-1.[address] [facility] Comment on above: Order Comment: No: D o not add to previous draw Performed By: #### 8 [id number] #### [facility] [place] [address] [place] [address], [facility] MONOS 11.1 % Normal 5.0-12.[address] [facility] Comment on above: Order Comment: No: D o not add to previous draw Performed By: #### 8 [id number] #### [facility] [place] [address] [place] [address], [facility] Neutrophils/100 WBC (Bld) 55.4 % Normal 40.0-72.[address] [facility] Comment on above: Order Comment: No: D o not add to previous draw Performed By: #### 8 [id number] #### [facility] [address] [place] [address], [place] Nucleated RBC/100 WBC (Bld) [Ratio] 0 % Normal 0-[address] [facility] Comment on above: Order Comment: No: D o not add to previous draw Performed By: #### 8 [id number] #### [facility] [address] [place] [address], [place] PLAT CNT 230 10*3/uL Normal 150-400 [facility] Comment on above: Order Comment: No: D o not add to previous draw Performed By: #### 8 [id number] #### [facility] [place] [address] [place] [address], [place] RBC (Bld) [#/Vol] 4.54 10*6/uL Normal 3.80-5.00 The [facility] Comment on above: Order Comment: No: D o not add to previous draw Performed By: #### 8 [id number] #### [facility] [address] [place] [address], [place] WBC (Bld) [#/Vol] 6.38 10*3/uL Normal 4.00-10.60 [facility] Comment on above: Order Comment: No: D o not add to previous draw Performed By: #### 8 [id number] #### [facility] [address] [place] [address], [place] POC GLUCOSE LABon 07-08-2020 Glucose [Mass/Vol] 164 mg/dL High 70-100 [facility] Comment on above: Performed By: #### 8 [id number] #### [facility] [address] [place] [address], [place] Glucose [Mass/Vol] 137 mg/dL High 70-100 [facility] Comment on above: Performed By: #### 8 [id number] ####[facility] [place] [address], [place] Glucose [Mass/Vol] 247 mg/dL High 70-100 [facility] Comment on above: Performed By: #### 8 [id number] ####[facility] [place] [address], [place] Glucose [Mass/Vol] 154 mg/dL High 70-100 [facility] Comment on above: Performed By: #### 8 [id number] ####[facility] [place] [address], [place] Glucose [Mass/Vol] 158 mg/dL High 70-100 [facility] Comment on above: Performed By: #### 8 [id number] #### [facility] [address] [place] [address], [place] POC GLUCOSE LABon 07-07-2020 Glucose [Mass/Vol] 144 mg/dL High 70-100 [facility] Comment on above: Performed By: #### 3 1792 #### [facility] [address] [place] [address], [place] Glucose [Mass/Vol] 184 mg/dL High 70-100 [facility] Comment on above: Performed By: #### 8 [id number] ####[facility] [place] [address], [place] Glucose [Mass/Vol] 171 mg/dL High 70-100 [facility] Comment on above: Performed By: #### 8 5499 ####[facility] [place] [address], [place] Glucose [Mass/Vol] 98 mg/dL Normal 70-100 [facility] Comment on above: Performed By: #### 8 [id number] #### [facility] [address] [place] [address], [place] POC GLUCOSE LABon 07-06-2020 Glucose [Mass/Vol] 220 mg/dL High 70-100 [facility] Comment on above: Performed By: #### 8 [id number] ####[facility] [place] [address], [place] Glucose [Mass/Vol] 215 mg/dL High 70-100 [facility] Comment on above: Performed By: #### 8 [id number] ####[facility] [place] [address], [place] Glucose [Mass/Vol] 288 mg/dL High 70-100 [facility] Comment on above: Performed By: #### 3 1792 #### [facility] [address] [place] [address], [place] POC GLUCOSE LABon 07-05-2020 Glucose [Mass/Vol] 111 mg/dL High 70-100 [facility] Comment on above: Performed By: #### 8 [id number] #### [facility] [address] [place] [address], [place] Glucose [Mass/Vol] 144 mg/dL High 70-100 [facility] Comment on above: Performed By: #### 8 [id number] #### [facility] [place] [address] [place] [address], [place] Glucose [Mass/Vol] 151 mg/dL High 70-100 [facility] Comment on above: Performed By: #### 8 5499 ####[facility] [place] [address], [place] Glucose [Mass/Vol] 157 mg/dL High 70-100 [facility] Comment on above: Performed By: #### 8 [id number] ####[facility] [place] [place] [address], [place] Glucose [Mass/Vol] 154 mg/dL High 70-100 [facility] Comment on above: Performed By: #### 8 [id number] ####[facility] [place] [place] [address], [place] BASIC METABOLIC PANELon 10-3 0-2020 Calcium [Mass/Vol] 9.2 mg/dL Normal 8.6-10.3 [facility] Comment on above: Order Comment: No: D o not add to previous draw Performed By: #### 0 0071, 92605 #### [facility] [address] [place] [address], [place] Chloride [Moles/Vol] 101 mmol/L Normal 98-[address] [facility] Comment on above: Order Comment: No: D o not add to previous draw Performed By: #### 0 0071, 51840 #### [facility] [address] [place] [address], [place] CO2 [Moles/Vol] 26 mmol/L Normal 21-31 [facility] Comment on above: Order Comment: No: D o not add to previous draw Performed By: #### 0 0071, 91644 #### [facility] [place] [address] [place] [address], [place] Creatinine [Mass/Vol] 0.75 mg/dL Normal 0.60-1.[address] [facility] Comment on above: Order Comment: No: D o not add to previous draw Performed By: #### 0 0071, 96125 #### [facility] [place] [address] [place] [address], [place] GFR/1.73 sq M predicted among blacks MDRD (S/P/Bld) [Vol rate/Area] mL/min/{1.73_m2} Normal >[address] [facility] Comment on above: Order Comment: No: D o not add to previous draw Performed By: #### 0 0071, 21669 #### [facility] [address] [place] [address], [place] GFR/1.73 sq M predicted among non-blacks MDRD (S/P/Bld) [Vol rate/Area] mL/min/{1.73_m2} Normal >[address] [facility] Comment on above: Order Comment: No: D o not add to previous draw Performed By: #### 0 0071, [id number] #### [facility] [place] [address] [place] [address], [place] Glucose [Mass/Vol] 343 mg/dL High 70-100 [facility] Comment on above: Order Comment: No: D o not add to previous draw Performed By: #### 0 0071, 79601 #### [facility] [place] [address] [place] [address], [facility] Potassium [Moles/Vol] 3.6 mmol/L Normal 3.5-5.[address] [facility] Comment on above: Order Comment: No: D o not add to previous draw Performed By: #### 0 0071, [id number] #### [facility] [place] [address] [place] [address], [facility] Sodium [Moles/Vol] 137 mmol/L Normal 136-145 [facility] Comment on above: Order Comment: No: D o not add to previous draw Performed By: #### 0 0071, 40781 #### [facility] [place] [address] [place] [address], [facility] Urea nitrogen [Mass/Vol] 15 mg/dL Normal 7-[address] [facility] Comment on above: Order Comment: No: D o not add to previous draw Performed By: #### 0 0071, [id number] #### [facility] [place] [address] [place] [address], [place] CBC W/DIFFon 07-04-2020 ABS BASOPHILS 0.0 10*3/uL Normal 0.0-0.[address] [facility] Comment on above: Order Comment: No: D o not add to previous draw Performed By: #### 8 [id number] #### [facility] [place] [address] [place] [address], [place] ABS IMM GRANS 0.0 10*3/uL Normal 0.0-0.[address] [facility] Comment on above: Order Comment: No: D o not add to previous draw Performed By: #### 8 [id number] #### [facility] [place] [address] [place] [address], [facility] ABS NEUTROPHILS 4.0 10*3/uL Normal 1.6-7.6 [facility] Comment on above: Order Comment: No: D o not add to previous draw Performed By: #### 8 [id number] #### [facility] [place] [address] [place] [address], [facility] Basophils/100 WBC (Bld) 0.7 % Normal 0.0-1.[address] [facility] Comment on above: Order Comment: No: D o not add to previous draw Performed By: #### 8 [id number] #### [facility] [place] [address] [place] [address], [facility] Eosinophils (Bld) [#/Vol] 0.3 10*3/uL Normal 0.0-0.[address] [facility] Comment on above: Order Comment: No: D o not add to previous draw Performed By: #### 8 [id number] #### [facility] [place] [address] [place] [address], [facility] Eosinophils/100 WBC (Bld) 4.7 % Normal 0.0-6.[address] [facility] Comment on above: Order Comment: No: D o not add to previous draw Performed By: #### 8 [id number] #### [facility] [place] [address] [place] [address], [place] Erythrocyte distribution width (RBC) [Ratio] 15.0 % Normal 11.5-15.[address] [facility] Comment on above: Order Comment: No: D o not add to previous draw Performed By: #### 8 [id number] #### [facility] [place] [address] [place] [address], [place] Hematocrit (Bld) [Volume fraction] 38.0 % Normal 36.0-45.[address] [facility] Comment on above: Order Comment: No: D o not add to previous draw Performed By: #### 8 [id number] #### [facility] [place] [address] [place] [address], [facility] Hemoglobin (Bld) [Mass/Vol] 12.4 g/dL Normal 12.0-15.[address] [facility] Comment on above: Order Comment: No: D o not add to previous draw Performed By: #### 8 [id number] #### [facility] [place] [address] [place] [address], [place] IMMATURE GRANS 0.3 % Normal 0.0-1.0 [facility] Comment on above: Order Comment: No: D o not add to previous draw Performed By: #### 8 [id number] #### [facility] [place] [address] [place] [address], [place] Lymphocytes (Bld) [#/Vol] 1.1 10*3/uL Low 1.2-4.[address] [facility] Comment on above: Order Comment: No: D o not add to previous draw Performed By: #### 8 [id number] #### [facility] [place] [address] [place] [id number], [place] Lymphocytes/100 WBC (Bld) 18.1 % Low 20.0-45.[address] [facility] Comment on above: Order Comment: No: D o not add to previous draw Performed By: #### 8 [id number] #### [facility] [place] [address] [place] [address], [place] MCH (RBC) [Entitic mass] 29.1 pg Normal 27.0-33.[address] [facility] Comment on above: Order Comment: No: D o not add to previous draw Performed By: #### 8 [id number] #### [facility] [place] [address] [place] [address], [place] MCHC (RBC) [Mass/Vol] 32.6 g/dL Normal 32.0-35.[address] [facility] Comment on above: Order Comment: No: D o not add to previous draw Performed By: #### 8 [id number] #### [facility] [place] [address] [place] [address], [facility] MCV (RBC) [Entitic vol] 89.2 fL Normal 82.0-98.[address] [facility] Comment on above: Order Comment: No: D o not add to previous draw Performed By: #### 8 [id number] #### [facility] [place] [address] [place] [id number], [facility] Monocytes (Bld) [#/Vol] 0.6 10*3/uL Normal 0.1-1.[address] [facility] Comment on above: Order Comment: No: D o not add to previous draw Performed By: #### 8 [id number] #### [facility] [place] [address] [facility] [place] [address], [facility] MONOS 9.6 % Normal 5.0-12.[address] [facility] Comment on above: Order Comment: No: D o not add to previous draw Performed By: #### 8 [id number] #### [facility] [place] [address] [facility] [address], [facility] Neutrophils/100 WBC (Bld) 66.6 % Normal 40.0-72.[address] [facility] Comment on above: Order Comment: No: D o not add to previous draw Performed By: #### 8 [id number] #### [facility] [place] [address] [place] [address], [facility] Nucleated RBC/100 WBC (Bld) [Ratio] 0 % Normal 0-[address] [facility] Comment on above: Order Comment: No: D o not add to previous draw Performed By: #### 8 [id number] #### [facility] [place] [address] [place] [id number], [facility] PLAT CNT 186 10*3/uL Normal 150-400 [facility] Comment on above: Order Comment: No: D o not add to previous draw Performed By: #### 8 [id number] #### [facility] [place] [address] [place] [address], [place] RBC (Bld) [#/Vol] 4.26 10*6/uL Normal 3.80-5.00 [facility] Comment on above: Order Comment: No: D o not add to previous draw Performed By: #### 8 [id number] #### [facility] [place] [address] [place] [address], [place] WBC (Bld) [#/Vol] 5.96 10*3/uL Normal 4.00-10.60 [facility] Comment on above: Order Comment: No: D o not add to previous draw Performed By: #### 8 [id number] #### [facility] [place] [address] [place] [address], [place] MAGNESIUM BLOODon 07-04-2020 Magnesium [Mass/Vol] 1.7 mg/dL Low 1.9-2.[address] [facility] Comment on above: Order Comment: No: D o not add to previous draw Performed By: #### 0 0071, 05981 #### [facility] [place] [address] [place] [address], [place] POC GLUCOSE LABon 07-04-2020 Glucose [Mass/Vol] 143 mg/dL High 70-100 [facility] Comment on above: Performed By: #### 8 [id number] #### [facility] [place] [address] [place] [address], [place] Glucose [Mass/Vol] 226 mg/dL High 70-100 [facility] Comment on above: Performed By: #### 3 [id number] #### [facility] [place] [address] [place] [address], [place] Glucose [Mass/Vol] 340 mg/dL High 70-100 [facility] Comment on above: Performed By: #### 8 [id number] #### [facility] [place] [address] [place] [address], [place] BASIC METABOLIC PANELon 10-2 Calcium [Mass/Vol] 9.1 mg/dL Normal 8.6-10.3 [facility] Comment on above: Order Comment: No: D o not add to previous draw Performed By: #### 0 0071, [id number] #### [facility] [place] [address] [place] [address], [place] Chloride [Moles/Vol] 104 mmol/L Normal 98-[address] [facility] Comment on above: Order Comment: No: D o not add to previous draw Performed By: #### 0 0071, [id number] #### [facility] [place] [address] [place] [address], [place] CO2 [Moles/Vol] 27 mmol/L Normal 21-31 [facility] Comment on above: Order Comment: No: D o not add to previous draw Performed By: #### 0 0071, 73838 #### [facility] [place] [address] [place] [address], [facility] Creatinine [Mass/Vol] 0.69 mg/dL Normal 0.60-1.[address] [facility] Comment on above: Order Comment: No: D o not add to previous draw Performed By: #### 0 0071, [id number] #### [facility] [place] [address] [place] [address], [place] GFR/1.73 sq M predicted among blacks MDRD (S/P/Bld) [Vol rate/Area] mL/min/{1.73_m2} Normal >[address] [facility] Comment on above: Order Comment: No: D o not add to previous draw Performed By: #### 0 0071, [id number] #### [facility] [place] [address] [place] [address], [place] GFR/1.73 sq M predicted among non-blacks MDRD (S/P/Bld) [Vol rate/Area] mL/min/{1.73_m2} Normal >[address] [facility] Comment on above: Order Comment: No: D o not add to previous draw Performed By: #### 0 0071, 32703 #### [facility] [place] [address] [place] [address], [place] Glucose [Mass/Vol] 192 mg/dL High 70-100 [facility] Comment on above: Order Comment: No: D o not add to previous draw Performed By: #### 0 0071, 22384 #### [facility] [place] [address] [place] [address], [facility] Potassium [Moles/Vol] 3.2 mmol/L Low 3.5-5.[address] [facility] Comment on above: Order Comment: No: D o not add to previous draw Performed By: #### 0 0071, 18752 #### [facility] [place] [address] [place] [address], [facility] Sodium [Moles/Vol] 139 mmol/L Normal 136-145 [facility] Comment on above: Order Comment: No: D o not add to previous draw Performed By: #### 0 0071, 59415 #### [facility] [place] [address] [place] [address], [facility] Urea nitrogen [Mass/Vol] 13 mg/dL Normal 7-[address] [facility] Comment on above: Order Comment: No: D o not add to previous draw Performed By: #### 0 0071, 17000 #### [facility] [place] [address] [place] [address], [place] CBC W/DIFFon 07-03-2020 ABS BASOPHILS 0.1 10*3/uL Normal 0.0-0.[address] [facility] Comment on above: Order Comment: No: D o not add to previous draw Performed By: #### 8 [id number] #### [facility] [place] [address] [place] [address], [facility] ABS IMM GRANS 0.0 10*3/uL Normal 0.0-0.[address] [facility] Comment on above: Order Comment: No: D o not add to previous draw Performed By: #### 8 [id number] #### [facility] [place] [address] [place] [address], [facility] ABS NEUTROPHILS 3.7 10*3/uL Normal 1.6-7.6 [facility] Comment on above: Order Comment: No: D o not add to previous draw Performed By: #### 8 [id number] #### [facility] [place] [address] [place] [address], [facility] Basophils/100 WBC (Bld) 0.8 % Normal 0.0-1.[address] [facility] Comment on above: Order Comment: No: D o not add to previous draw Performed By: #### 8 [id number] #### [facility] [place] [address] [place] [id number], [facility] Eosinophils (Bld) [#/Vol] 0.3 10*3/uL Normal 0.0-0.[address] [facility] Comment on above: Order Comment: No: D o not add to previous draw Performed By: #### 8 [id number] #### [facility] [place] [address] [place] [id number], [facility] Eosinophils/100 WBC (Bld) 4.4 % Normal 0.0-6.[address] [facility] Comment on above: Order Comment: No: D o not add to previous draw Performed By: #### 8 [id number] #### [facility] [place] [address] [place] [id number], [place] Erythrocyte distribution width (RBC) [Ratio] 14.7 % Normal 11.5-15.[address] [facility] Comment on above: Order Comment: No: D o not add to previous draw Performed By: #### 8 [id number] #### [facility] [place] [address] [place] [address], [facility] Hematocrit (Bld) [Volume fraction] 38.4 % Normal 36.0-45.[address] [facility] Comment on above: Order Comment: No: D o not add to previous draw Performed By: #### 8 [id number] #### [facility] [place] [address] [place] [address], [place] Hemoglobin (Bld) [Mass/Vol] 12.2 g/dL Normal 12.0-15.[address] [facility] Comment on above: Order Comment: No: D o not add to previous draw Performed By: #### 8 [id number] #### [facility] [place] [address] [place] [id number], [facility] IMMATURE GRANS 0.5 % Normal 0.0-1.[address] [facility] Comment on above: Order Comment: No: D o not add to previous draw Performed By: #### 8 [id number] #### [facility] [place] [address] [place] [id number], [facility] Lymphocytes (Bld) [#/Vol] 1.3 10*3/uL Normal 1.2-4.[address] [facility] Comment on above: Order Comment: No: D o not add to previous draw Performed By: #### 8 [id number] #### [facility] [place] [address] [place] [id number], [place] Lymphocytes/100 WBC (Bld) 22.0 % Normal 20.0-45.[address] [facility] Comment on above: Order Comment: No: D o not add to previous draw Performed By: #### 8 [id number] #### [facility] [place] [address] [place] [id number], [place] MCH (RBC) [Entitic mass] 28.6 pg Normal 27.0-33.[address] [facility] Comment on above: Order Comment: No: D o not add to previous draw Performed By: #### 8 [id number] #### [facility] [place] [address] [place] [id number], [place] MCHC (RBC) [Mass/Vol] 31.8 g/dL Low 32.0-35.[address] [facility] Comment on above: Order Comment: No: D o not add to previous draw Performed By: #### 8 [id number] #### [facility] [place] [address] [place] [address], [facility] MCV (RBC) [Entitic vol] 90.1 fL Normal 82.0-98.[address] [facility] Comment on above: Order Comment: No: D o not add to previous draw Performed By: #### 8 [id number] #### [facility] [place] [address] [place] [address], [facility] Monocytes (Bld) [#/Vol] 0.7 10*3/uL Normal 0.1-1.[address] [facility] Comment on above: Order Comment: No: D o not add to previous draw Performed By: #### 8 [id number] #### [facility] [place] [address] [place] [address], [facility] MONOS 11.1 % Normal 5.0-12.[address] [facility] Comment on above: Order Comment: No: D o not add to previous draw Performed By: #### 8 [id number] #### [facility] [place] [address] [place] [address], [facility] Neutrophils/100 WBC (Bld) 61.2 % Normal 40.0-72.[address] [facility] Comment on above: Order Comment: No: D o not add to previous draw Performed By: #### 8 [id number] #### [facility] [place] [address] [place] [id number], [facility] Nucleated RBC/100 WBC (Bld) [Ratio] 0 % Normal 0-[address] [facility] Comment on above: Order Comment: No: D o not add to previous draw Performed By: #### 8 [id number] #### [facility] [place] [address] [place] [address], [facility] PLAT CNT 193 10*3/uL Normal 150-400 [facility] Comment on above: Order Comment: No: D o not add to previous draw Performed By: #### 8 [id number] #### [facility] [place] [address] [place] [address], [facility] RBC (Bld) [#/Vol] 4.26 10*6/uL Normal 3.80-5.00 [facility] Comment on above: Order Comment: No: D o not add to previous draw Performed By: #### 8 [id number] #### [facility] [place] [address] [place] [address], [place] WBC (Bld) [#/Vol] 5.96 10*3/uL Normal 4.00-10.60 [facility] Comment on above: Order Comment: No: D o not add to previous draw Performed By: #### 8 [id number] #### [facility] [place] [address] [place] [address], [facility] POC GLUCOSE LABon 07-03-2020 Glucose [Mass/Vol] 161 mg/dL High 70-100 [facility] Comment on above: Performed By: #### 8 [id number] #### [facility] [place] [address] [place] [address], [facility] BASIC METABOLIC PANELon 06-06 Calcium [Mass/Vol] 8.5 mg/dL Low 8.6-10.3 [facility] Comment on above: Order Comment: No: D o not add to previous draw Performed By: #### 0 0071, [id number] #### [facility] [place] [address] [place] [address], [place] Chloride [Moles/Vol] 103 mmol/L Normal 98-[address] [facility] Comment on above: Order Comment: No: D o not add to previous draw Performed By: #### 0 0071, 67444 #### [facility] [place] [address] [place] [address], [place] CO2 [Moles/Vol] 24 mmol/L Normal 21-31 [facility] Comment on above: Order Comment: No: D o not add to previous draw Performed By: #### 0 0071, 12323 #### [facility] [place] [address] [place] [address], [facility] Creatinine [Mass/Vol] 0.76 mg/dL Normal 0.60-1.[address] [facility] Comment on above: Order Comment: No: D o not add to previous draw Performed By: #### 0 0071, 34465 #### [facility] [place] [address] [place] [address], [place] GFR/1.73 sq M predicted among blacks MDRD (S/P/Bld) [Vol rate/Area] mL/min/{1.73_m2} Normal >[address] [facility] Comment on above: Order Comment: No: D o not add to previous draw Performed By: #### 0 0071, 81584 #### [facility] [place] [address] [place] [address], [place] GFR/1.73 sq M predicted among non-blacks MDRD (S/P/Bld) [Vol rate/Area] mL/min/{1.73_m2} Normal >[address] [facility] Comment on above: Order Comment: No: D o not add to previous draw Performed By: #### 0 0071, 76382 #### [facility] [place] [address] [place] [address], [place] Glucose [Mass/Vol] 224 mg/dL High 70-100 [facility] Comment on above: Order Comment: No: D o not add to previous draw Performed By: #### 0 0071, 01363 #### [facility] [place] [address] [place] [address], [place] Potassium [Moles/Vol] 4.0 mmol/L Normal 3.5-5.[address] [facility] Comment on above: Order Comment: No: D o not add to previous draw Performed By: #### 0 0071, 97458 #### [facility] [place] [address] [facility] Sodium [Moles/Vol] 134 mmol/L Low 136-145 [facility] Comment on above: Order Comment: No: D o not add to previous draw Performed By: #### 0 0071, 99410 #### [facility] [place] [address] [facility]. [address] Urea nitrogen [Mass/Vol] 16 mg/dL Normal 7-[address] [facility] Comment on above: Order Comment: No: D o not add to previous draw Performed By: #### 0 0071, 90365 #### [facility] [place] [address] CBC W/DIFFon 07-02-2020 ABS BASOPHILS 0.1 10*3/uL Normal 0.0-0.[address] [facility] Comment on above: Order Comment: No: D o not add to previous draw Performed By: #### 0 0071, 74356 #### [facility] [place] [address] ABS IMM GRANS 0.1 10*3/uL Normal 0.0-0.[address] [facility] Comment on above: Order Comment: No: D o not add to previous draw Performed By: #### 0 0071, 85618 #### [facility] [place] [address] [facility]. [address] ABS NEUTROPHILS 6.5 10*3/uL Normal 1.6-7.6 [facility] Comment on above: Order Comment: No: D o not add to previous draw Performed By: #### 0 0071, 30533 #### [facility] [place] [address] Basophils/100 WBC (Bld) 0.7 % Normal 0.0-1.[address] [facility] Comment on above: Order Comment: No: D o not add to previous draw Performed By: #### 0 0071, 63590 #### [facility] [place] [address] [place] [address], [facility] Eosinophils (Bld) [#/Vol] 0.2 10*3/uL Normal 0.0-0.[address] [facility] Comment on above: Order Comment: No: D o not add to previous draw Performed By: #### 0 0071, 59515 #### [facility] [place] [address] [place] [id number], [facility] Eosinophils/100 WBC (Bld) 2.5 % Normal 0.0-6.[address] [facility] Comment on above: Order Comment: No: D o not add to previous draw Performed By: #### 0 0071, 83372 #### [facility] [place] [address] [place] [address], [facility] Erythrocyte distribution width (RBC) [Ratio] 14.9 % Normal 11.5-15.[address] [facility] Comment on above: Order Comment: No: D o not add to previous draw Performed By: #### 0 0071, 74050 #### [facility] [place] [address] [place] [id number], [facility] Hematocrit (Bld) [Volume fraction] 37.8 % Normal 36.0-45.[address] [facility] Comment on above: Order Comment: No: D o not add to previous draw Performed By: #### 0 0071, 13109 #### [facility] [place] [address] [place] [address], [facility] Hemoglobin (Bld) [Mass/Vol] 12.0 g/dL Normal 12.0-15.[address] [facility] Comment on above: Order Comment: No: D o not add to previous draw Performed By: #### 0 0071, 25281 #### [facility] [place] [address] [place] [address], [facility] IMMATURE GRANS 0.6 % Normal 0.0-1.0 [facility] Comment on above: Order Comment: No: D o not add to previous draw Performed By: #### 0 0071, [id number] #### [facility] [place] [address] [place] [address], [facility] Lymphocytes (Bld) [#/Vol] 1.0 10*3/uL Low 1.2-4.[address] [facility] Comment on above: Order Comment: No: D o not add to previous draw Performed By: #### 0 0071, 51474 #### [facility] [place] [address] [place] [address], [facility] Lymphocytes/100 WBC (Bld) 11.3 % Low 20.0-45.[address] [facility] Comment on above: Order Comment: No: D o not add to previous draw Performed By: #### 0 0071, 96946 #### [facility] [place] [address] [facility] [place] [address], [facility] MCH (RBC) [Entitic mass] 29.0 pg Normal 27.0-33.[address] [facility] Comment on above: Order Comment: No: D o not add to previous draw Performed By: #### 0 0071, 67424 #### [facility] [place] [address] [facility] [place] [address], [facility] MCHC (RBC) [Mass/Vol] 31.7 g/dL Low 32.0-35.[address] [facility] Comment on above: Order Comment: No: D o not add to previous draw Performed By: #### 0 0071, 45563 #### [facility] [place] [address] [place] [id number], [facility] MCV (RBC) [Entitic vol] 91.3 fL Normal 82.0-98.[address] [facility] Comment on above: Order Comment: No: D o not add to previous draw Performed By: #### 0 0071, 05080 #### [facility] [place] [address] [place] [address], [facility] Monocytes (Bld) [#/Vol] 0.9 10*3/uL Normal 0.1-1.[address] [facility] Comment on above: Order Comment: No: D o not add to previous draw Performed By: #### 0 0071, 14171 #### [facility] [place] [address] [place] [address], [place] MONOS 10.3 % Normal 5.0-12.[address] [facility] Comment on above: Order Comment: No: D o not add to previous draw Performed By: #### 0 0071, 74571 #### [facility] [place] [address] [place] [address], [place] Neutrophils/100 WBC (Bld) 74.6 % High 40.0-72.[address] [facility] Comment on above: Order Comment: No: D o not add to previous draw Performed By: #### 0 0071, 84164 #### [facility] [place] [address] [place] [address], [place] Nucleated RBC/100 WBC (Bld) [Ratio] 0 % Normal 0-[address] [facility] Comment on above: Order Comment: No: D o not add to previous draw Performed By: #### 0 0071, 84713 #### [facility] [place] [address] [place] [address], [place] PLAT CNT 229 10*3/uL Normal 150-400 [facility] Comment on above: Order Comment: No: D o not add to previous draw Performed By: #### 0 0071, 06307 #### [facility] [place] [address] [place] [address], [place] RBC (Bld) [#/Vol] 4.14 10*6/uL Normal 3.80-5.00 The [facility] Comment on above: Order Comment: No: D o not add to previous draw Performed By: #### 0 0071, 23881 #### [facility] [place] [address] [place] [address], [place] WBC (Bld) [#/Vol] 8.65 10*3/uL Normal 4.00-10.60 [facility] Comment on above: Order Comment: No: D o not add to previous draw Performed By: #### 0 0071, 62815 #### [facility] [place] [address] [facility] [place], [place] [id number] [place] [address] MAGNESIUM BLOODon 07-02-2020 Magnesium [Mass/Vol] 1.8 mg/dL Low 1.9-2.[address] [facility] Comment on above: Order Comment: No: D o not add to previous draw Performed By: #### 0 0071, 14110 #### [facility] [place] [address] [place], [place] [id number] [place] [address] POC GLUCOSE LABon 07-02-2020 Glucose [Mass/Vol] 157 mg/dL High 70-100 [facility] Comment on above: Performed By: #### 8 [id number] #### [facility] [place] [address] *MRSA/MSSA CULTUREon 020 *MRSA/MSSA CULTURE Clinical [...] previously released data found. Normal The [facility] Comment on above: Performed By: #### 3 1302 #### [facility] [place] [address] [place], [place] [id number] [place] [address] LUMBAR SPINE 2 OR 3 VWSon LUMBAR SPINE [address] [facility] Department of Radiology [address] [place] [address] Patient Name: MONICA ACOSTA : 1960 Sex: F Age: Race: White Pt. Location: [id number] Patient Status: I Ordered Date: 07/01/2020 7:00:00 AM Completed Date: 07/01/2020 12:20 PM Requesting Provider: HCILANGO MARTINEZ Attending Provider: CHILANGO MARTINEZ Report Copy [...] reports Electronically signed: Richard Clarke. Transcribed by: [email or web address], User Resident: BOGDAN SOTELO Electronically Signed by: RICHARD CLARKE @ 07/01/2020 08:54 PM I personally read this/these film(s) with this resident Normal The [facility] Comment on above: Order Comment: No: D o not add to previous draw Operative Reporton 0 Operative Report MR#: [id number] [facility] Pt. Name: Monica Acosta Room #: [id number] Discharge Date: Birthdate: 1960 OPERATIVE REPORT DATE OF SURGERY: 07/01/2020 SURGEON: Chilango Martinez M.D. CONSUMER CREDIT COUNSELOR: Ant Jolley M.D. PREOPERATIVE DIAGNOSIS: L1 vertebral compression fracture secondary to osteoporosis (ICD-10 M80.08XA). ANESTHESIA: General endotracheal. POSITION: Prone position on the Chris table in reverse Trendelenburg position. OPERATION: 1. L1 vertebroplasty (96421). 2. Use of intraoperative fluoroscopy (41137). POSTOPERATIVE DIAGNOSIS: A6xdtygcnib compression fracture secondary to osteoporosis (ICD-10 M80.08XA). [...] Martinez M.D. Date Trans: 07/01/2020 12:25 P/ [id number] [facility] POC GLUCOSE LABon 07-01-2020 Glucose [Mass/Vol] 142 mg/dL High 70-100 The [facility] Comment on above: Performed By: #### 8 [id number] ####[facility] [place] [facility] [place] [address], [facility] Glucose [Mass/Vol] 156 mg/dL High 70-100 [facility] Comment on above: Performed By: #### 3 1792 #### [facility] [place] [address] [facility] [place] [address], [facility] Glucose [Mass/Vol] 187 mg/dL High 70-100 [facility] Comment on above: Performed By: #### 3 1792 #### [facility] [place] [address] *SARS-CoV-2 COVID-19on 06-30 [id number] Not Detected Normal Not Detected The [facility] Comment on above: Order Comment: The A ptima SARS-CoV-2 assay is a nucleic acid amplification test intended for the qualitative detection of RNA from SARS-CoV-2 isolated and purified from nasopharyngeal (BUILDINGS AND GROUNDS DIRECTOR),oropharyngeal (OP), nasal swab, sputum, and bronchoalveolar lavage (BAL) specimens from patients with signs and symptoms of infection who are suspected of COVID-19. Results are for the identification of SARS-CoV-2 RNA. The SARS-CoV-2 RNA is generally detectable during the acute phase of infection. The Aptima SARS-CoV-2 Assay on the Darudar and Darudar Fusion system is intended for use by laboratory personnel specifically instructed and trained in the operation of the [place]agara and Niagara Fusion system. The Aptima SARS-CoV-2 assay is [...] information. Performed By: #### 3 1792 #### [facility] [place] [address] [facility]. [address] APTTon 06-30-2020 aPTT Coag (Bld) [Time] 22.4 s Low 25.0-35.[address] [facility] Comment on above: Result Comment: ALL [...] PURPOSE. Performed By: #### 8 [id number] #### [facility] [place] [address] BASIC METABOLIC PANELon 10-2 6-2020 Calcium [Mass/Vol] 9.5 mg/dL Normal 8.6-10.3 [facility] Comment on above: Performed By: #### 8 [id number] #### [facility] [place] [address] [place] [address], [place] Chloride [Moles/Vol] 95 mmol/L Low 98-[address] [facility] Comment on above: Performed By: #### 8 [id number] #### [facility] [place] [address] [place] [address], [place] CO2 [Moles/Vol] 21 mmol/L Normal 21-31 The [facility] Comment on above: Performed By: #### 8 [id number] #### [facility] [place] [address] [place] [address], [place] Creatinine [Mass/Vol] 1.00 mg/dL Normal 0.60-1.[address] [facility] Comment on above: Performed By: #### 8 5499 #### [facility] [place] [address] [place] [address], [place] GFR/1.73 sq M predicted among blacks MDRD (S/P/Bld) [Vol rate/Area] mL/min/{1.73_m2} Normal >[address] [facility] Comment on above: Performed By: #### 8 5499 #### [facility] [place] [address] [place] [address], [place] GFR/1.73 sq M predicted among non-blacks MDRD (S/P/Bld) [Vol rate/Area] 56 ml/min/1.73sq m Abnormal >60 [facility] Comment on above: Performed By: #### 8 [id number] #### [facility] [place] [address] [place] [address], [place] Glucose [Mass/Vol] 395 mg/dL High 70-100 [facility] Comment on above: Performed By: #### 8 [id number] #### [facility] [place] [address] [place] [address], [facility] Potassium [Moles/Vol] 4.4 mmol/L Normal 3.5-5.[address] [facility] Comment on above: Performed By: #### 8 [id number] #### [facility] [place] [address] [place] [address], [facility] Sodium [Moles/Vol] 134 mmol/L Low 136-145 [facility] Comment on above: Performed By: #### 8 [id number] #### [facility] [place] [address] [facility] [place] [address], [facility] Urea nitrogen [Mass/Vol] 24 mg/dL Normal 7-[address] [facility] Comment on above: Performed By: #### 8 [id number] #### [facility] [place] [address] [facility]. [address] BNP (B-TYPE NATRIURETIC PEPT PADMAJA)on 06-30-2020 Natriuretic peptide B (Bld) [Mass/Vol] 27 pg/mL Normal 0-[address] [facility] Comment on above: Order Comment: No: D o not add to previous draw Result Comment: Give n the appropriate clinical setting a BNP result of >100 pg/mL indicates congestive heart failure. Performed By: #### 0 0071, 13871 #### [facility] [place] [address] [facility] [place] [address], [facility] CBC W/DIFFon 06-30-2020 ABS BASOPHILS 0.1 10*3/uL Normal 0.0-0.[address] [facility] Comment on above: Performed By: #### 8 [id number] #### [facility] [place] [address] [facility] [place] [address], [facility] ABS IMM GRANS 0.1 10*3/uL Normal 0.0-0.[address] [facility] Comment on above: Performed By: #### 8 [id number] #### [facility] [place] [address] [place] [address], [facility] ABS NEUTROPHILS 10.3 10*3/uL High 1.6-7.6 The [facility] Comment on above: Performed By: #### 8 [id number] #### [facility] [place] [address] [place] [address], [facility] Basophils/100 WBC (Bld) 0.7 % Normal 0.0-1.[address] [facility] Comment on above: Performed By: #### 8 5499 #### [facility] [place] [address] [place] [address], [facility] Eosinophils (Bld) [#/Vol] 0.2 10*3/uL Normal 0.0-0.[address] [facility] Comment on above: Performed By: #### 8 [id number] #### [facility] [place] [address] [facility] [place] [address], [facility] Eosinophils/100 WBC (Bld) 1.4 % Normal 0.0-6.[address] [facility] Comment on above: Performed By: #### 8 [id number] #### [facility] [place] [address] [facility] [place] [address], [facility] Erythrocyte distribution width (RBC) [Ratio] 14.7 % Normal 11.5-15.[address] [facility] Comment on above: Performed By: #### 8 [id number] #### [facility] [place] [address] [facility] [place] [address], [facility] Hematocrit (Bld) [Volume fraction] 47.7 % High 36.0-45.[address] [facility] Comment on above: Performed By: #### 8 [id number] #### [facility] [place] [address] [place] [place] [address], [facility] Hemoglobin (Bld) [Mass/Vol] 15.3 g/dL High 12.0-15.[address] [facility] Comment on above: Performed By: #### 8 [id number] #### [facility] [place] [address] [place] [place] [address], [place] IMMATURE GRANS 0.6 % Normal 0.0-1.0 [facility] Comment on above: Performed By: #### 8 [id number] #### [facility] [place] [address] [place] [address], [facility] Lymphocytes (Bld) [#/Vol] 1.4 10*3/uL Normal 1.2-4.[address] [facility] Comment on above: Performed By: #### 8 5499 #### [facility] [place] [address] [facility] [place] [address], [facility] Lymphocytes/100 WBC (Bld) 11.0 % Low 20.0-45.[address] [facility] Comment on above: Performed By: #### 8 [id number] #### [facility] [place] [address] [facility] MCH (RBC) [Entitic mass] 28.7 pg Normal 27.0-33.[address] [facility] Comment on above: Performed By: #### 8 [id number] #### [facility] [place] [address] [facility] MCHC (RBC) [Mass/Vol] 32.1 g/dL Normal 32.0-35.[address] [facility] Comment on above: Performed By: #### 8 [id number] #### [facility] [place] [address] [place] [address], [facility] MCV (RBC) [Entitic vol] 89.3 fL Normal 82.0-98.[address] [facility] Comment on above: Performed By: #### 8 [id number] #### [facility] [place] [address] [place] [address], [facility] Monocytes (Bld) [#/Vol] 1.0 10*3/uL Normal 0.1-1.[address] [facility] Comment on above: Performed By: #### 8 [id number] #### [facility] [place] [address] [place] [address], [place] MONOS 7.4 % Normal 5.0-12.0 [facility] Comment on above: Performed By: #### 8 [id number] #### [facility] [place] [address] [facility] [place] [address], [facility] Neutrophils/100 WBC (Bld) 78.9 % High 40.0-72.0 [facility] Comment on above: Performed By: #### 8 [id number] #### [facility] [place] [address] [facility] [place] [place] [address], [facility] Nucleated RBC/100 WBC (Bld) [Ratio] 0 % Normal 0-[address] [facility] Comment on above: Performed By: #### 8 [id number] #### [facility] [place] [address] [facility] [place] [address], [facility] PLAT CNT 315 10*3/uL Normal 150-400 [facility] Comment on above: Performed By: #### 8 [id number] #### [facility] [place] [address] [place] [address], [facility] RBC (Bld) [#/Vol] 5.34 10*6/uL High 3.80-5.00 [facility] Comment on above: Performed By: #### 8 [id number] #### [facility] [place] [address] [facility] [place] [place] [address], [facility] WBC (Bld) [#/Vol] 13.03 10*3/uL High 4.00-10.60 [facility] Comment on above: Performed By: #### 8 [id number] #### [facility] [place] [address] [place] [address], [facility] CT BRAIN WO CONTRASTon 06-30 CT BRAIN WO CONTRAST [facility] Department of Radiology [address] [place] [id number] Patient Name: MONICA ACOSTA : 1960 Sex: F Age: Race: White Pt. Location: [facility] Patient Status: E Ordered Date: 06/30/2020 6:35:00 [...] achievable Electronically signed: Enio Miles. Transcribed by: [email or web address], User Resident: Electronically Signed by: ENIO MILES @ 06/30/2020 07:[address] [facility] Comment on above: Order Comment: Bleed CT CERVICAL SPINE WITHOUT CO NTRASTon 06-30-2020 CT CERVICAL SPINE WITHOUT CONTRAST [facility] Department of Radiology [address] [place] [id number] Patient Name: MONICA ACOSTA : 1960 Sex: F Age: Race: White Pt. Location: [facility] Patient Status: E Ordered Date: 06/30/2020 6:35:00 [...] malalignment. Electronically signed: Enio Miles. Transcribed by: [email or web address], User Resident: Electronically Signed by: ENIO MILES @ 06/30/2020 07:[address] [facility] Comment on above: Order Comment: No: D o not add to previous draw CT LUMBAR SPINE WO CONTRASTo n 06-30-2020 CT LUMBAR SPINE WO CONTRAST [facility] Department of Radiology [address] [place] [phone] Patient Name: MONICA ACOSTA : 1960 Sex: F Age: Race: White Pt. Location: [facility] Patient Status: E Ordered Date: 06/30/2020 7:00:00 [...] injury. Electronically signed: Enio Miles. Transcribed by: [email or web address], User Resident: Electronically Signed by: ENIO MILES @ 06/30/2020 07:[address] [facility] Comment on above: Order Comment: No: D o not add to previous draw CTA CHESTon 06-30-[address] [facility] Department of Radiology [address] [place] [phone] Patient Name: MONICA ACOSTA : 1960 Sex: F Age: Race: White Pt. Location: [id number] Patient Status: I Ordered Date: 06/30/2020 3:25:00 [...] atelectasis. Electronically signed: Richard Clarke. Transcribed by: [email or web address], User Resident: Electronically Signed by: RICHARD CLARKE @ 06/30/2020 08:13 PM Normal [facility] Comment on above: Order Comment: No: D o not add to previous draw D DIMER TESTon 06-30-2020 D-DIMER TEST 1.78 mcg/mL FEU High 0.27-0.49 [facility] Comment on above: Order [...] thrombotic event. Performed By: #### 0 0071, [id number] #### [facility] [place] [address] [facility] [address] HEMOGLOBIN A1Con 06-30-2020 HbA1c (Bld) [Mass fraction] 200 mmol/L Normal [facility] Comment on above: Order Comment: No: D o not add to previous draw Performed By: #### 0 0071, [id number] #### [facility] [place] [address] HbA1c (Bld) [Mass fraction] 8.6 % High 4.0-6.[address] [facility] Comment on above: Order Comment: No: D o not add to previous draw Performed By: #### 0 0071, [id number] #### [facility] [place] [address] [facility] [place] [address], [facility] LACTATE BLOODon 06-30-2020 Lactate [Moles/Vol] 1.5 mmol/L Normal 0.5-2.2 [facility] Comment on above: Order Comment: No: D o not add to previous draw Performed By: #### 0 0071, 22365 #### [facility] [place] [address] [place] [address], [facility] MAGNESIUM BLOODon 06-30-2020 Magnesium [Mass/Vol] 1.9 mg/dL Normal 1.9-2.[address] [facility] Comment on above: Order Comment: No: D o not add to previous draw Performed By: #### 0 0071, 53260 #### [address] MRI LUMBAR SPINE W WO CONTRA STon 06-30-2020 MRI LUMBAR SPINE W WO CONTRAST [facility] Department of Radiology [address] [place] [phone] Patient Name: MONICA ACOSTA : 1960 Sex: F Age: Race: White Pt. Location: [facility] Patient Status: I Ordered Date: 06/30/2020 7:50:00 [...] changes. Electronically signed: Dom Carbajal. Transcribed by: [email or web address], User Resident: Electronically Signed by: DOM CARBAJAL @ 06/30/2020 11:[address] [facility] Comment on above: Order Comment: No: D o not add to previous draw POC GLUCOSE EDon 06-30-2020 Glucose [Mass/Vol] 388 mg/dL High 70-100 [facility] Comment on above: Performed By: #### 8 [id number] #### [facility] [place] [address] [place] [address], [place] POC GLUCOSE LABon 06-30-2020 Glucose [Mass/Vol] 430 mg/dL High 70-100 [facility] Comment on above: Performed By: #### [id number] ####[facility] [place] [place] [address], [place] Glucose [Mass/Vol] 308 mg/dL High 70-100 [facility] Comment on above: Performed By: #### [id number] #### [facility] [place] [address] [place] [address], [place] Glucose [Mass/Vol] 348 mg/dL High 70-100 [facility] Comment on above: Performed By: #### [id number] #### [facility] [address] [place] [address], [place] PROCALCITONINon 06-30-2020 PROCALCITONIN 0.11 ng/mL High 0.00-0.10 [facility] Comment on above: Order Comment: No: D [...] initial PCT<0.5ng/mL Performed By: #### [id number], [id number] #### [facility] [address] PROTHROMBIN TIMEon 0 INR Coag (PPP) [Relative time] 0.89 {INR} Low 0.91-1.[address] [facility] Comment on above: Result Comment: ACC [...] 1995;[id number]. Performed By: #### [id number] #### [facility] [place] [address] PT Coag (PPP) [Time] 12.0 s Low 12.3-14.8 [facility] Comment on above: Result Comment: ALL RESULTS MUST BE INTERPRETED WITH RESPECT TO BLOOD DRAWING ARTIFACT OR DILUTION ERROR OF ANTICOAGULANT AT THE TIME OF SAMPLING. Performed By: #### [id number] #### [facility] [place] [address] TPO ANTIBODY [id number] TPO ANTIBODY 0.8 IU/mL Normal 0.0-9.0 [facility] Comment on above: Result Comment: Perf ormed By: [employer] [place] [id number] Manager Intermediate: Emilia Arrieta MD TROPONIN-Ion 06-30-2020 Troponin I.cardiac [Mass/Vol] 0.01 ng/mL Normal 0.00-0.04 [facility] Comment on above: Order Comment: No: D o not add to previous draw Result Comment: REFE RENCE RANGES: 0.00 - 0.04 ng/ml NORMAL 0.05 - 0.50 ng/ml INDETERMINATE > 0.50 ng/ml CONSISTENT WITH AN M.I. Performed By: #### [id number], [id number] #### [facility] [place] [address] Performed By: #### [id number] #### [facility] [address] [facility] [place] [address], [facility] TYPE AND SCREENon 06-30-2020 ABO INTERPRETATION A Normal [facility] Comment on above: Performed By: #### [id number] #### [facility] [address] [facility] [place] [place] [address], [facility] RH INTERPRETATION Positive Normal [facility] Comment on above: Performed By: #### [id number] #### [facility] [address] [facility] [place] [address], [facility] LUMBAR SPINE 2 OR 3 VWSon LUMBAR SPINE [address] [facility] Department of Radiology [address] [place] [address] [id number] Patient Name: MONICA ACOSTA : 1960 Sex: [...] reports Electronically signed: Jamie Elizondo. Transcribed by: [email or web address], User Resident: BOGDAN SOTELO Electronically Signed by: JAMIE ELIZONDO @ 06/26/2020 11:06 AM I personally read this/these film(s) with this resident Normal [facility] Comment on above: Order Comment: No: D o not add to previous draw Vital Signs Date Time Vital Sign Value Performing Clinician Facility 11-19-2024 13:38-0400 Body height 170.2 cm Collin Saba MD Work Phone: [facility] 11-19-2024 13:38-0400 Body mass index (BMI) [Ratio] 29.12 kg/m2 Collin Saba MD Work Phone: [facility] 11-19-2024 13:38-0400 Body weight 84.37 kg Collin Saba MD Work Phone: [facility] 11-19-2024 13:38-0400 Diastolic blood pressure 64 mm[Hg] Collin Saba MD Work Phone: [facility] 11-19-2024 13:38-0400 Respiratory rate 18 /min Collin Saba MD Work Phone: [facility] 11-19-2024 13:38-0400 Systolic blood pressure 114 mm[Hg] Collin Saba MD Work Phone: [facility] 09-19-2024 11:19-0500 Body height 170.2 cm Rudolph Hurt MD Work Phone: [facility] 09-19-2024 11:19-0500 Body mass index (BMI) [Ratio] 29.76 kg/m2 Rudolph Hurt MD Work Phone: [facility] 09-19-2024 11:19-0500 Body temperature 96.21 [degF] Rudolph Hurt MD Work Phone: [facility] 09-19-2024 11:19-0500 Body weight 86.18 kg Rudolph Hurt MD Work Phone: [facility] 09-19-2024 11:19-0500 Diastolic blood pressure 66 mm[Hg] Rudolph Hurt MD Work Phone: [facility] 09-19-2024 11:19-0500 Heart rate 102 /min Rudolph Hurt MD Work Phone: [facility] 09-19-2024 11:19-0500 Respiratory rate 22 /min Rudolph Hurt MD Work Phone: [facility] 09-19-2024 11:19-0500 SaO2% (BldA) [Mass fraction] 91 % Rudolph Hurt MD Work Phone: [facility] 09-19-2024 11:19-0500 Systolic blood pressure 124 mm[Hg] Rudolph Hurt MD Work Phone: [facility] 08-21-2024 13:37-0500 Body height 170.2 cm Zeyad Tate MD Work Phone: [facility] 08-21-2024 13:37-0500 Body mass index (BMI) [Ratio] 30.7 kg/m2 Zeyad Tate MD Work Phone: [facility] 08-21-2024 13:37-0500 Body weight 88.91 kg Zeyad Tate MD Work Phone: [facility] 08-21-2024 13:37-0500 Diastolic blood pressure 66 mm[Hg] Zeyad Tate MD Work Phone: [facility] 08-21-2024 13:37-0500 Heart rate 83 /min Zeyad Tate MD Work Phone: [facility] 08-21-2024 13:37-0500 Respiratory rate 18 /min Zeyad Tate MD Work Phone: [facility] 08-21-2024 13:37-0500 Systolic blood pressure 100 mm[Hg] Zeyad Tate MD Work Phone: [facility] 04-13-2024 11:43-0400 Body height 170.2 cm Zen Furlong DO Work Phone: [facility] 04-13-2024 11:43-0400 Body mass index (BMI) [Ratio] 28.66 kg/m2 Zen Furlong DO Work Phone: [facility] 04-13-2024 11:43-0400 Body temperature 98.01 [degF] Zen Furlong DO Work Phone: [facility] 04-13-2024 11:43-0400 Body weight 83.01 kg Zen Furlong DO Work Phone: [facility] 04-13-2024 11:43-0400 Diastolic blood pressure 60 mm[Hg] Zen Furlong DO Work Phone: [facility] 04-13-2024 11:43-0400 Heart rate 88 /min Zen Furlong DO Work Phone: [facility] 04-13-2024 11:43-0400 SaO2% (BldA) [Mass fraction] 97 % Zen Furlong DO Work Phone: [facility] 04-13-2024 11:43-0400 Systolic blood pressure 100 mm[Hg] Zen Furlong DO Work Phone: [facility] 03-26-2024 13:20-0400 Body height 170.2 cm Zen Furlong DO Work Phone: [facility] 03-26-2024 13:20-0400 Body mass index (BMI) [Ratio] 28.72 kg/m2 Zen Furlong DO Work Phone: [facility] 03-26-2024 13:20-0400 Body temperature 97.9 [degF] Zen Furlong DO Work Phone: [facility] 03-26-2024 13:20-0400 Body weight 83.19 kg Zen Furlong DO Work Phone: [facility] 03-26-2024 13:20-0400 Diastolic blood pressure 60 mm[Hg] Zen Furlong DO Work Phone: [facility] 03-26-2024 13:20-0400 Heart rate 81 /min Zen Furlong DO Work Phone: [facility] 03-26-2024 13:20-0400 SaO2% (BldA) [Mass fraction] 97 % Zen Furlong DO Work Phone: [facility] 03-26-2024 13:20-0400 Systolic blood pressure 110 mm[Hg] Zen Furlong DO Work Phone: [facility] 02-09-2024 16:28-0400 Body height 170.2 cm Zen Furlong DO Work Phone: [facility] 02-09-2024 16:28-0400 Body mass index (BMI) [Ratio] 28.33 kg/m2 Zen Furlong DO Work Phone: [facility] 02-09-2024 16:28-0400 Body temperature 98.2 [degF] Zen Furlong DO Work Phone: [facility] 02-09-2024 16:28-0400 Body weight 82.06 kg Zne Furlong DO Work Phone: [facility] 02-09-2024 16:28-0400 Diastolic blood pressure 60 mm[Hg] Zen Furlong DO Work Phone: [facility] 02-09-2024 16:28-0400 Heart rate 84 /min Zen Furlong DO Work Phone: [facility] 02-09-2024 16:28-0400 Respiratory rate 18 /min Zen Furlong DO Work Phone: [facility] 02-09-2024 16:28-0400 SaO2% (BldA) [Mass fraction] 95 % Zen Furlong DO Work Phone: [facility] 02-09-2024 16:28-0400 Systolic blood pressure 110 mm[Hg] Zen Furlong DO Work Phone: [facility] 12-05-2023 12:52-0400 Body height 170.2 cm Demetra Porter DEPARTMENTAL SHIPPING CLERK-PAYROLL SUPERVISOR Work Phone: [facility] 12-05-2023 12:52-0400 Body mass index (BMI) [Ratio] 28.16 kg/m2 Demerta Porter DEPARTMENTAL SHIPPING CLERK-PAYROLL SUPERVISOR Work Phone: [facility] 12-05-2023 12:52-0400 Body temperature 97.59 [degF] Demetra Porter DEPARTMENTAL SHIPPING CLERK-PAYROLL SUPERVISOR Work Phone: [facility] 12-05-2023 12:52-0400 Body weight 81.56 kg Demetra DUMONTPAYROLL SUPERVISOR Work Phone: [facility] 12-05-2023 12:52-0400 Diastolic blood pressure 58 mm[Hg] Demetra DUMONTPAYROLL SUPERVISOR Work Phone: [facility] 12-05-2023 12:52-0400 Heart rate 84 /min Demetra DUMONTPAYROLL SUPERVISOR Work Phone: [facility] 12-05-2023 12:52-0400 Respiratory rate 18 /min Demetra DUMONTPAYROLL SUPERVISOR Work Phone: [facility] 12-05-2023 12:52-0400 SaO2% (BldA) [Mass fraction] 98 % Demetra DUMONTPAYROLL SUPERVISOR Work Phone: [facility] 12-05-2023 12:52-0400 Systolic blood pressure 96 mm[Hg] Demetra DUMONTPAYROLL SUPERVISOR Work Phone: [facility] 07-27-2021 12:15-0500 Body height 170.18 cm Veronica Ginty [facility] Other 07-27-2021 12:15-0500 Body mass index (BMI) [Ratio] 27.88 kg/m2 Veronica Ginty [facility] Other 07-27-2021 12:15-0500 Body temperature 96 [degF] Veronica Ginty [facility] Other 07-27-2021 12:15-0500 Body weight 80.74 kg Veronica Ginty [facility] Other 07-27-2021 12:15-0500 SaO2% (BldA) [Mass fraction] 96 % Veronica Ginty [facility] Other Encounters Encounter Date Encounter Type Care Provider Facility Start: 11-19-2024 End: 11-19-2024 ambulatory [facility] Start: 11-19-2024 End: 11-19-2024 Office consultation new/estab patient 80 min Collin Saba MD Work Phone: [facility] Rheumatology, A Department of [facility] Comment on above: Rheumatoid arthritis involving multiple sites, unspecified whether rheumatoid factor present (CMS-HCC) (Primary Dx); Long-term use of Plaquenil; Long-term use of leflunomide therapy Start: 11-19-2024 End: 11-19-2024 ambulatory [facility] Start: 11-12-2024 End: 11-12-2024 Refill Rudolph Hurt MD Work Phone: [facility] Comment on above: Rheumatoid arthritis involving multiple sites with positive rheumatoid factor (CMS/HCC) Start: 10-19-2024 End: 10-19-2024 Refill Rudolph Hurt MD Work Phone: [facility] Comment on above: Rheumatoid arthritis involving multiple sites with positive rheumatoid factor (CMS/HCC) Start: 10-15-2024 End: 10-15-2024 ambulatory [facility] Start: 09-19-2024 End: 09-19-2024 Bamboo flowsaneta Hurt MD Work Phone: [facility] Start: 09-19-2024 End: 09-19-2024 Bamboo flowsheet Rudolph Hurt MD Work Phone: [facility] Start: 09-19-2024 End: 09-19-2024 Office outpatient new 45 minutes Rudolph Hurt MD Work Phone: [facility] Comment on above: Rheumatoid arthritis involving multiple sites with positive rheumatoid factor (CMS/HCC) (Primary Dx); Type I diabetes mellitus with polyneuropathy (CMS/HCC); Coronary artery disease involving [place] coronary artery of [place] heart without angina pectoris (CMS/HCC); PAD (peripheral artery disease) (CMS/HCC); POTS (postural orthostatic tachycardia syndrome); Type 1 diabetes mellitus with other circulatory complications (CMS/HCC); Type 1 diabetes mellitus with hyperglycemia (HCC) (CMS/HCC); Encounter for long-term (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 medications; Dyslipidemia (CMS/HCC); shelter (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 (CMS/HCC) Start: 09-19-2024 End: 09-19-2024 ambulatory RUDOLPH HURT Not Available Start: 08-21-2024 End: 08-21-2024 Bamboo flowsheet Zeyad Tate MD Work Phone: [facility] Start: 08-21-2024 End: 08-21-2024 Scan & Targeto flowsheet Zeyad Tate MD Work Phone: [facility] Start: 08-21-2024 End: 08-21-2024 Office outpatient new 60 minutes Zeyad Tate MD Work Phone: [facility] Comment on above: Type 1 diabetes ciara itus with hyperglycemia (HCC) (CMS/HCC) (Primary Dx); Essential (primary) hypertension (CMS/HCC); Vitamin D deficiency, unspecified; Dietary counseling and surveillance; Mixed hyperlipidemia (CMS/HCC); Presence of insulin pump (external) (internal); shelter (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 (CMS/HCC); Encounter for fitting or adjustment of insulin pump Start: 08-21-2024 End: 08-21-2024 ambulatory ZEYAD TATE Not Available Start: 08-13-2024 End: 08-13-2024 ambulatory [facility] Start: 07-09-2024 End: 07-09-2024 ambulatory [facility] Start: 06-11-2024 End: 06-11-2024 ambulatory [facility] Start: 05-14-2024 End: 05-14-2024 ambulatory [facility] Start: 04-30-2024 End: 05-02-2024 Telephone encounter Ana Edwards STATE WILDLIFE OFFICER [facility] Start: 04-28-2024 Evaluation and manag ement of inpatient ANTONIO SEAY [facility] Start: 04-27-2024 Evaluation and manag ement of inpatient AUTUMN SCHWARZ [facility] Start: 04-25-2024 Evaluation and manag ement of inpatient CORTNEY HOLDEN [facility] Start: 04-24-2024 Evaluation and manag ement of inpatient BROOKE PEREZ [facility] Start: 04-22-2024 Evaluation and manag ement of inpatient [facility] Start: 04-22-2024 Evaluation and manag ement of inpatient [facility] Start: 04-22-2024 [facility] Start: 04-21-2024 Emergency department [facility] Start: 04-21-2024 End: 05-01-2024 Evaluation and management of inpatient JULIO CESAR GARDNER [facility] Start: 04-16-2024 End: 04-16-2024 Orders Only Zen Flores DO Work Phone: [facility] Start: 04-13-2024 End: 04-13-2024 ambulatory [facility] Start: 04-13-2024 End: 04-13-2024 Office outpatient visit 25 minutes Zen Flores DO Work Phone: [facility] Comment on above: Stage 2 chronic kidn ey disease due to type 1 diabetes mellitus ([facility]-H[facility]) (Primary Dx); Rheumatoid arthritis involving multiple sites, unspecified whether rheumatoid factor present ([facility]-HCC); 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 ([facility]-HCC); Diabetic polyneuropathy associated with type 1 diabetes mellitus ([facility]); Hyperkalemia; Compression fracture of L1 vertebra, sequela Start: 04-13-2024 End: 04-13-2024 ambulatory [facility] Start: 04-03-2024 End: 04-03-2024 Orders Only Zen Bordenng DO Work Phone: [facility] Comment on above: Medication monitorin g encounter (Primary Dx); Compression fracture of L1 vertebra, sequela; Rheumatoid arthritis involving multiple sites, unspecified whether rheumatoid factor present ([facility]) Start: 04-03-2024 End: 04-03-2024 Refill Radha Ohara DEPARTMENTAL SHIPPING CLERK-STUCCO PLASTERER [facility] Start: 03-30-2024 End: 04-02-2024 Telephone encounter Ana Edwards [facility] Start: 03-29-2024 End: 03-29-2024 Telephone encounter Zen Flores DO Work Phone: [facility] - [facility] Start: 03-27-2024 End: 03-27-2024 ambulatory [facility] Start: 03-27-2024 End: 03-29-2024 ambulatory [facility] Comment on above: Rheumatoid arthritis involving multiple sites, unspecified whether rheumatoid factor present ([facility] Start: 03-26-2024 End: 03-26-2024 ambulatory [facility] Start: 03-26-2024 End: 03-26-2024 Office outpatient visit 25 minutes Zen Bordenng DO Work Phone: [facility] Comment on above: Compression fracture of L1 vertebra, sequela (Primary Dx); Rheumatoid arthritis involving multiple sites, unspecified whether rheumatoid factor present ([facility]); Other fatigue; Medication monitoring encounter; Primary hypertension; Type 1 diabetes mellitus with diabetic polyneuropathy [place] Overweight Start: 03-26-2024 ambulatory [facility] Start: 03-20-2024 End: 03-20-2024 Refill Zen Bordenng DO Work Phone: [facility] - Medical Oncology Start: 02-27-2024 End: 02-27-2024 Refill Zen Flores DO Work Phone: [facility] Start: 02-09-2024 End: 02-09-2024 Office outpatient visit 15 minutes Zen Flores DO Work Phone: [facility] Comment on above: Concussion without l oss of consciousness, initial encounter (Primary Dx); Strain of neck muscle, initial encounter; Strain of right shoulder, initial encounter; Overweight; Contusion of left knee, initial encounter Start: 02-09-2024 End: 02-09-2024 [facility] Start: 02-07-2024 End: 02-09-2024 Telephone encounter Demetra Porter DEPARTMENTAL SHIPPING CLERK-PAYROLL SUPERVISOR Work Phone: [facility] Start: 01-27-2024 End: 01-27-2024 Orders Only Zen Flores DO Work Phone: [facility] Start: 01-26-2024 End: 01-27-2024 Refill Demetra Porter DEPARTMENTAL SHIPPING CLERK-PAYROLL SUPERVISOR Work Phone: [facility] Comment on above: Rheumatoid arthritis involving multiple sites, unspecified whether rheumatoid factor present ([facility]) Start: 12-26-2023 End: 12-27-2023 Refill Zen Flores DO Work Phone: [facility] Start: 12-08-2023 Refill Dario Barker Work Phone: [facility] Start: 12-05-2023 End: 12-05-2023 ambulatory [facility] Thea PORTER [facility] Start: 12-05-2023 End: 12-05-2023 Office outpatient visit 25 minutes Demetra Porter DEPARTMENTAL SHIPPING CLERK-PAYROLL SUPERVISOR Work Phone: [facility] Comment on above: Rheumatoid arthritis involving multiple sites, unspecified whether rheumatoid factor present ([facility]) (Primary Dx); Status post partial amputation of left foot ([facility]); Diabetic polyneuropathy associated with type 2 diabetes mellitus ([facility]); Severe depression ([facility]-H[facility]); PAD (peripheral artery disease) ([facility]); Compression fracture of L1 vertebra with routine healing, subsequent encounter; Mixed hyperlipidemia Start: 12-05-2023 End: 12-05-2023 ambulatory DEMETRA PORTER [facility] Start: 11-29-2023 Orders Only Demetra Porter DEPARTMENTAL SHIPPING CLERK-PAYROLL SUPERVISOR [facility] Start: 11-15-2023 Orders Only Demetra Porter DEPARTMENTAL SHIPPING CLERK-PAYROLL SUPERVISOR Work Phone: [facility] Start: 11-14-2023 Refill Zen G Furlo ng DO Work Phone: [facility] Medical Oncology Comment on above: Compression fracture of L1 vertebra with routine healing, subsequent encounter Start: 10-31-2023 Refill Zen G Furlo ng DO Work Phone: [facility] Comment on above: Compression fracture of L1 vertebra with routine healing, subsequent encounter Start: 10-16-2023 Refill Zen G Furlo ng DO Work Phone: [facility] Comment on above: Compression fracture of L1 vertebra with routine healing, subsequent encounter Start: 10-04-2023 Refill Zen G Furlo ng DO Work Phone: [facility] Medical Oncology Comment on above: Compression fracture of L1 vertebra with routine healing, subsequent encounter Start: 09-12-2023 Refill Zen G Furlo ng DO Work Phone: [facility] Medical Oncology Comment on above: Compression fracture of L1 vertebra with routine healing, subsequent encounter Start: 08-30-2023 Orders Only Zen G Furlo ng DO Work Phone: [facility] Comment on above: Compression fracture of L1 vertebra with routine healing, subsequent encounter Start: 10-17-2022 End: 10-17-[address] ZEN FLORES Facility:[facility] Start: 08-17-2022 ambulatory FARIBA CARRERA Facilit y:[facility] Start: 08-04-2022 End: 08-05-[address] ZEN FLORES Facility:[facility] Start: 06-15-2022 End: 06-16-2022 ambulatory FARIBA CARRERA Facility:[facility] Start: 05-31-2022 Encounter for preprocedural cardiovascular examination RADHA BRANNON [facility] Start: 05-31-2022 Encounter for preprocedural laboratory examination RADHA BRANNON [facility] Start: 05-31-2022 End: 06-03-[address] [...] Encounter for preprocedural laboratory examination RADHA BRANNON [facility] Start: 03-13-2022 End: 03-15-2022 Evaluation and management of inpatient DR RUDOLPH HURT Facility:[facility] Start: 03-11-2022 End: 03-12-[address] ZEN FLORES Facility:[facility] Start: 03-06-2022 End: 03-07-2022 ambulatory RADHA Nogueira [facility] Facility:[facility] Start: 03-06-2022 End: 03-07-2022 Encounter for preprocedural laboratory examination RADHA Nogueira [facility] Facility:[facility] Start: 03-01-2022 End: 03-02-2022 ambulatory RADHA Nogueira [facility] Facility:H1 Start: 02-18-2022 End: 02-19-[address] BELLA TAPIA Facility:H1 Start: 02-16-2022 End: 02-17-2022 ambulatory RADHA Nogueira [facility] Facility:H1 Start: 01-26-2022 End: 01-27-2022 ambulatory RADHA Nogueira [facility] Facility:H1 Start: 01-22-2022 End: 01-23-2022 ambulatory RADHA Nogueira [facility] Facility:H1 Start: 12-30-2021 End: 12-31-2021 ambulatory RADHA Nogueira [facility] Facility:H1 Start: 11-03-2021 End: 11-03-[address] ZEN FLORES Facility:H1 Start: 10-27-2021 End: 10-28-[address] DEMETRA PORTER Facility:H1 Start: 07-27-2021 End: 07-27-2021 ambulatory Veronica Mcneill [facility] Other Start: 07-27-2021 Office outpatient vi sit 15 minutes Veronica Mcneill [facility] Start: 07-17-2020 End: 08-01-2020 Patient encounter procedure REFERRED SELF Facility:[facility] Start: 06-30-2020 End: 07-14-2020 Evaluation and management of inpatient REFERRED SELF Facility:[facility] Procedures Date Procedure Procedure Detail Performing Clinician Start: 11-19-2024 Cyclic citrullinated peptide antibody DEMETRA PORTER Comment on above: Result Comment: Interpretation-------- <3 Negative >=3 Positive Performed By: #### 2 [id number], [id number] #### [facility] ([id number]) [address], [address] [place] [address] Start: 08-21-2024 Gluc bld gluc mntr d ev cleared fda spec home use Zeyad Tate MD Work Phone: Start: 07-09-2024 Follow-up visit OCTAVIANO SHIPMAN Start: 06-11-2024 Follow-up visit OCTAVIANO SHIPMAN Start: 05-14-2024 Follow-up visit OCTAVIANO MASONKrystle Start: 04-13-2024 Adult depression screening assessment Zen Flores DO [employer] Phone: Start: 03-26-2024 Adult depression screening assessment Zen Flores DO [employer] Phone: Start: 02-09-2024 Follow-up visit Follow-up ZEN FLORES Start: 02-09-2024 Adult depression screening assessment Demetra Porter APRN-[employer] Work Phone: Start: 12-05-2023 Adult depression screening assessment Demetra Porter APRN-[facility] Work Phone: Start: 07-12-2023 Adult depression screening assessment Zen Flores DO [employer] Phone: Start: 06-30-2023 Diabetic retinal eye exam Zen Flores DO [employer] Phone: Start: 05-31-2022 Excision of Left Geovanny t Muscle, Open Approach RADHA BRANNON Start: 05-31-2022 Excision of Left Geovanny t Subcutaneous Tissue and Fascia, Open Approach RADHA BRANNON Start: 05-31-2022 Resection of Right Metatarsal, Open Approach RADHA BRANNON Start: 05-21-2022 History of cholecystectomy History of cholecystectomy Zen Flores [employer] Phone: Start: 05-21-2022 History of coronary artery bypass grafting History of coronary artery bypass surgery Zen Flores [employer] Work Phone: Start: 05-21-2022 History of placement of stent for coronary artery disease History of coronary artery stent placement Zen Flores DO Work Phone: Start: 05-05-2022 Microscopic examinat ion of blood, culture RADHA BRANNON Comment on above: Performed By: #### B [id number] ####[facility] [id number] [id number]. Abiel Clement Start: 03-11-2022 Detachment at Left F oot, Partial 4th Ray, Open Approach RADHA [facility] Start: 03-11-2022 Division of Left Geovanny t Subcutaneous Tissue and Fascia, Percutaneous Approach RADHA [facility] Start: 03-11-2022 Division of Left Low er Leg Tendon, Open Approach RADHA [facility] Start: 03-11-2022 EXC LT METATRSL [facility] BNE 1ST TOE OP RADHA [facility] Start: 03-11-2022 Detachment at Left F oot, Partial 4th Ray, Open Approach RADHA [facility] Start: 03-11-2022 Division of Left Low er Leg Tendon, Open Approach RADHA [facility] Start: 03-11-2022 EXC LT METATRSL SSMD BNE 1ST TOE OP RADHA [facility] Start: 03-11-2022 Excision of Left Geovanny t Subcutaneous Tissue and Fascia, Open Approach RADHA [facility] Start: 07-01-2020 SUPPLEMENT LUMBAR VERTEBRA WITH SYNTH SUB, PERC APPROACH CHILANGO MARTINEZ Start: 06-30-2020 Antibody screen REFERRE D SELF Comment on above: Performed By: #### [id number] #### [address] Plan of Treatment Date Care Activity Detail Author Start: 09-17-2029 DTaP,Tdap and Td Vaccines (2 - Td or Tdap) DTaP,Tdap and Td Vaccines (2 - Td or Tdap) [facility] Start: 11-19-2025 Adult BMI Screening Adult BMI Screening [facility] Start: 09-19-2025 Screening for malignant neoplasm of breast Mammogram [facility] Comment on above: Postponed from 1999 (Patient Refus ed) Start: 09-19-2025 Screening for malignant neoplasm of colon Colorectal Cancer Screening [facility] Comment on above: Postponed from 1959 (Patient Refus ed) Start: 04-13-2025 Adult BMI Screening Adult BMI Screening [facility] Start: 04-13-2025 Depression Screening Depression Screening [facility] Start: 04-13-2025 Tobacco Screening Tobacco Screening [facility] Start: 03-27-2025 Urine screening for protein Diabetes: Urine Protein Screening [facility] Start: 03-26-2025 Adult BMI Screening Adult BMI Screening [facility] Start: 03-26-2025 Depression Screening Depression Screening [facility] Start: 03-26-2025 Tobacco Screening Tobacco Screening [facility] Start: 02-19-2025 Hemoglobin A1c measurement Diabetes: Hemoglobin A1C [facility] Start: 02-09-2025 Screening for malignant neoplasm of colon Colonoscopy [facility] Comment on above: Postponed from 11/19/2022 (Patient Refus ed) Start: 02-09-2025 Tobacco Screening Tobacco Screening [facility] Start: 02-08-2025 Adult BMI Screening Adult BMI Screening [facility] Start: 02-08-2025 Depression Screening Depression Screening [facility] Start: 02-08-2025 Tobacco Screening Tobacco Screening [facility] Start: 12-20-2024 End: 11-19-2025 CBC W Auto Differential panel - Blood CBC auto differential Lab Routine Rheumatoid arthritis involving multiple sites, unspecified whether rheumatoid factor present ([facility]) Long-term use of leflunomide therapy Expected: 12/20/2024 (Approximate), Expires: 11/19/2025 [facility] Comment on above: Expected: 12/20/2024 (Approximate), Expi res: 11/19/2025 Start: 12-20-2024 End: 11-19-2025 Comprehensive metabolic 2000 panel - Serum or Plasma Comprehensive metabolic panel Lab Routine Rheumatoid arthritis involving multiple sites, unspecified whether rheumatoid factor present ([facility]) Long-term use of leflunomide therapy Expected: 12/20/2024 (Approximate), Expires: 11/19/2025 [facility] Comment on above: Expected: 12/20/2024 (Approximate), Expi res: 11/19/2025 Start: 12-19-2024 End: 12-19-2024 Patient encounter procedure 12/19/2024 3:00 PM EDT Office Visit [facility], A Department of [facility] [address] [phone] Collin Saba MD [address] [address] [facility] Department of [facility] Start: 12-10-2024 End: 12-10-2024 Patient encounter procedure 12/10/2024 2:15 PM EDT Office Visit [facility] [address] [place] [address] Rudolph Hurt MD [address] [place] [address] [facility] Start: 12-04-2024 Adult BMI Screening Adult BMI Screening [facility] Start: 12-04-2024 Depression Screening Depression Screening [facility] Start: 12-04-2024 Tobacco Screening Tobacco Screening [facility] Start: 12-03-2024 End: 11-19-2025 CBC W Auto Differential panel - Blood CBC auto differential Lab Routine Rheumatoid arthritis involving multiple sites, unspecified whether rheumatoid factor present ([facility]) Long-term use of leflunomide therapy Expected: 12/03/2024 (Approximate), Expires: 11/19/2025 [facility] Comment on above: Expected: 12/03/2024 (Approximate), Expi res: 11/19/2025 Start: 12-03-2024 End: 11-19-2025 Comprehensive metabolic 2000 panel - Serum or Plasma Comprehensive metabolic panel Lab Routine Rheumatoid arthritis involving multiple sites, unspecified whether rheumatoid factor present ([facility]) Long-term use of leflunomide therapy Expected: 12/03/2024 (Approximate), Expires: 11/19/2025 [facility] Comment on above: Expected: 12/03/2024 (Approximate), Expi res: 11/19/2025 Start: 11-27-2024 End: 11-27-2024 Patient encounter procedure 11/27/2024 1:40 PM EDT [facility] [address] [place] [address] Zeyad Tate MD [address] [place] [address] [facility] Start: 11-19-2024 End: 11-19-2025 C-reactive protein C-reactive protein Lab Routine Rheumatoid arthritis involving multiple sites, unspecified whether rheumatoid factor present ([facility]) Expected: 11/19/2024 (Approximate), Expires: 11/19/2025 [facility] Comment on above: Expected: 11/19/2024 (Approximate), Expi res: 11/19/2025 Start: 11-19-2024 End: 11-19-2025 CBC W Auto Differential panel - Blood [facility] Comment on above: Expected: 11/19/2024 (Approximate), Expi res: 11/19/2025 Start: 11-19-2024 End: 11-19-2025 Comprehensive metabolic 2000 panel - Serum or Plasma [facility] Comment on above: Expected: 11/19/2024 (Approximate), Expi res: 11/19/2025 Start: 11-19-2024 End: 11-19-2025 Cyanocobalamin vitamin b-12 Vitamin B12 Lab Routine Rheumatoid arthritis involving multiple sites, unspecified whether rheumatoid factor present ([facility]) Expected: 11/19/2024, Expires: 11/19/2025 [facility] Comment on above: Expected: 11/19/2024, Expires: Start: 11-19-2024 End: 11-19-2025 Erythrocyte sedimentation rate Erythrocyte Sedimentation Rate (ESR) Lab Routine Rheumatoid arthritis involving multiple sites, unspecified whether rheumatoid factor present ([facility]) Expected: 11/19/2024 (Approximate), Expires: 11/19/2025 [facility] Comment on above: Expected: 11/19/2024 (Approximate), Expi res: 11/19/2025 Start: 11-19-2024 Hemoglobin A1c measurement Diabetes: Hemoglobin A1C [facility] Start: 11-19-2024 End: 11-19-2025 Thyrotropin [Units/volume] in Serum or Plasma [facility] Comment on above: Expected: 11/19/2024, Expires: Start: 11-19-2024 End: 11-19-2025 Vitamin D 25 hydroxy Vitamin D 25 hydroxy Lab Routine Rheumatoid arthritis involving multiple sites, unspecified whether rheumatoid factor present ([facility]) Expected: 11/19/2024, Expires: 11/19/2025 [employer] Work Phone: Comment on above: Expected: 11/19/2024, Expires: Start: 11-19-2024 End: 11-19-2025 XR Bones Limited Survey Views [facility] Comment on above: Expected: 11/19/2024, Expires: Start: 11-19-2024 End: 11-19-2025 XR Chest PA and Lateral [employer] Comment on above: Expected: 11/19/2024, Expires: Start: 09-19-2024 End: 09-19-2025 Basic metabolic 1998 panel - Serum or Plasma Basic metabolic panel Lab Routine Encounter for long-term (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 medications Expected: 09/19/2024 (Approximate), Expires: 09/19/2025 [facility] Comment on above: Expected: 09/19/2024 (Approximate), Expi res: 09/19/2025 Start: 09-19-2024 End: 09-19-2025 CBC W Auto Differential panel - Blood CBC and differential Lab Routine Encounter for long-term (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 medications Expected: 09/19/2024 (Approximate), Expires: 09/19/2025 [facility] Comment on above: Expected: 09/19/2024 (Approximate), Expi res: 09/19/2025 Start: 09-19-2024 End: 09-19-2025 Erythrocyte sedimentation rate Sedimentation rate, automated Lab Routine Rheumatoid arthritis involving multiple sites with positive rheumatoid factor ([facility]) Expected: 09/19/2024 (Approximate), Expires: 09/19/2025 [facility] Comment on above: Expected: 09/19/2024 (Approximate), Expi res: 09/19/2025 Start: 09-19-2024 End: 09-19-2025 Hepatic function 2000 panel - Serum or Plasma Hepatic function panel Lab Routine Encounter for long-term (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 medications Expected: 09/19/2024 (Approximate), Expires: 09/19/2025 [facility] Comment on above: Expected: 09/19/2024 (Approximate), Expi res: 09/19/2025 Start: 09-19-2024 End: 09-19-2025 Lipid 1996 panel - Serum or Plasma Lipid panel Lab Routine Dyslipidemia ([facility]) Expected: 09/19/2024 (Approximate), Expires: 09/19/2025 [facility] Comment on above: Expected: 09/19/2024 (Approximate), Expi res: 09/19/2025 Start: 09-19-2024 End: 09-19-2025 Rheumatoid factor [Units/volume] in Serum or Plasma Rheumatoid factor Lab Routine Rheumatoid arthritis involving multiple sites with positive rheumatoid factor ([facility]) Expected: 09/19/2024 (Approximate), Expires: 09/19/2025 [facility] Work Phone: Comment on above: Expected: 09/19/2024 (Approximate), Expi res: 09/19/2025 Start: 09-19-2024 End: 09-19-2024 Patient encounter procedure 09/19/2024 11:30 AM EST Office Visit [facility] [address] [place] [phone] Rudolph Hurt MD [address] [place] [phone] Arrived [facility] Comment on above: Arrived Start: 08-21-2024 End: 08-21-2024 Patient encounter procedure 08/21/2024 1:20 PM EST Office Visit [facility] [address] [place] [address] Zeyad Tate MD [address] [place] [address] Arrived [facility] Comment on above: Arrived Start: 07-12-2024 Adult BMI Screening Adult BMI Screening [facility] Start: 07-12-2024 Depression Screening Depression Screening [facility] Start: 07-12-2024 Medicare Annual Wellness (AWV) Medicare Annual Wellness (AWV) [facility] Start: 07-12-2024 Tobacco Screening Tobacco Screening [facility] Start: 06-30-2024 Glaucoma screening Diabetic Ophthalmology Exam [facility] Start: 05-06-2024 Influenza vaccination [facility] Start: 04-17-2024 End: 04-17-2024 Patient encounter procedure 04/17/2024 11:45 AM EDT Office Visit [facility] [address] [address] Collin Saba MD [address] [address] [facility] Start: 04-13-2024 End: 04-13-2024 Patient encounter procedure 04/13/2024 11:30 AM EDT Office Visit [facility] - Family Medicine [address] [place] [address] Zen Flores DO [address], [place] [address] [facility] Start: 03-26-2024 End: 03-26-2024 Patient encounter procedure 03/26/2024 1:30 PM EDT Office Visit [facility] [address] [place] [address] Zen Flores, [address], [place] [address] [facility] Start: 03-19-2024 End: 03-19-2024 Patient encounter procedure 03/19/2024 2:15 PM EDT Office Visit [facility] [address] [place] [address] Zen Flores, DO [address], [place] [address] [facility] - Family Medicine Start: 11-20-2023 Screening for malignant neoplasm of breast Mammogram [facility] Comment on above: Postponed from 11/19/2022 (Patient Refus ed) Start: 11-20-2023 Screening for malignant neoplasm of colon Colonoscopy [facility] Comment on above: Postponed from 11/19/2022 (Patient Refus ed) Start: 11-10-2023 End: 11-10-2023 Patient encounter procedure 11/10/2023 1:50 PM EST [facility] [address] [place] [address] Zen Flores DO [address], [place] [address] [facility] Internal Medicine Family Medicine Start: 09-13-2023 Diabetic foot examination Diabetic Foot Exam [facility] Start: 11-19-2022 Screening for malignant neoplasm of breast Mammogram [facility] Start: 11-19-2022 Screening for malignant neoplasm of colon Colonoscopy [facility] Start: 09-30-2020 Hemoglobin A1c measurement Diabetes: Hemoglobin A1C [facility] Start: 12-20-2009 Administration of varicella zoster vaccine Zoster (Shingles) Vaccine (1 of 2) [facility] Start: 1999 Screening for malignant neoplasm of breast Mammogram [facility] Start: 12-20-1989 Screening for malignant neoplasm of cervix [facility] Start: 12-20-1980 Screening for malignant neoplasm of cervix Pap Smear [facility] Start: 12-20-1977 Adult BMI Follow Up Plan Adult BMI Follow Up Plan [facility] Start: 12-20-1969 Glaucoma screening Diabetes: Retinopathy Screening [facility] Start: 1959 Screening for malignant neoplasm of colon [facility] End: 04-13-2025 Basic metabolic 2000 panel - Serum or Plasma Basic Metabolic Panel Lab Routine 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 1 Occurrences starting 04/13/2024 until 04/13/2025 [employer] Work Phone: Comment on above: 1 Occurrences starting 04/13/2024 until 04/13/2025 C reactive protein [Mass/volume] in Serum or Plasma C-reactive protein Lab Routine Rheumatoid arthritis involving multiple sites, unspecified whether rheumatoid factor present [place] 11/19/2024 2:38 PM EDT [facility] End: 03-26-2025 CBC panel - Blood by Automated count CBC Lab Routine Other fatigue 1 Occurrences starting 03/26/2024 until 03/26/2025 [facility] Comment on above: 1 Occurrences starting 03/26/2024 until 03/26/2025 End: 11-19-2025 CCP Ab CCP Ab Lab Routine Rheumatoid arthritis involving multiple sites, unspecified whether rheumatoid factor present ([facility] 1 Occurrences starting 11/19/2024 until 11/19/2025 [facility] Comment on above: 1 Occurrences starting 11/19/2024 until 11/19/2025 Cobalamin (Vitamin B 12) [Mass/volume] in Serum or Plasma Vitamin B12 Lab Routine Rheumatoid arthritis involving multiple sites, unspecified whether rheumatoid factor present ([facility] 11/19/2024 2:38 PM EDT [facility] End: 03-26-2025 Comprehensive metabolic 2000 panel - Serum or Plasma Comprehensive metabolic panel Lab Routine Primary hypertension 1 Occurrences starting 03/26/2024 until 03/26/2025 [facility] Comment on above: 1 Occurrences starting 03/26/2024 until 03/26/2025 Cyclic citrullinated peptide IgG Ab [Units/volume] in Serum or Plasma CCP Ab Lab Routine Rheumatoid arthritis involving multiple sites, unspecified whether rheumatoid factor present ([facility] 11/19/2024 2:38 PM EDT [facility] End: 07-22-2025 Drug Screen, Urine Drug Screen, Urine Lab Routine Medication monitoring encounter 1 Occurrences starting 03/26/2024 until 03/26/2025 [employer] Work Phone: Comment on above: 1 Occurrences starting 03/26/2024 until 03/26/2025 End: 04-03-2025 Drug Screen, Urine Drug Screen, Urine Lab Routine Medication monitoring encounter Rheumatoid arthritis involving multiple sites, unspecified whether rheumatoid factor present ([facility] 1 Occurrences starting 04/03/2024 until 04/03/2025 [employer] Work Phone: Comment on above: 1 Occurrences starting 04/03/2024 until 04/03/2025 Erythrocyte sedimentation rate by Photometric method Erythrocyte Sedimentation Rate (ESR) Lab Routine Rheumatoid arthritis involving multiple sites, unspecified whether rheumatoid factor present ([facility] 11/19/2024 2:38 PM EDT [facility] End: 03-26-2025 Microalbumin - Albumin: Creatinine Urine Ratio Microalbumin - Albumin: Creatinine Urine Ratio Lab Routine Type 1 diabetes mellitus with diabetic polyneuropathy ([facility] 1 Occurrences starting 03/26/2024 until 03/26/2025 [facility] Comment on above: 1 Occurrences starting 03/26/2024 until 03/26/2025 End: 11-19-2025 Rheumatoid factor Rheumatoid factor Lab Routine Rheumatoid arthritis involving multiple sites, unspecified whether rheumatoid factor present ([facility] 1 Occurrences starting 11/19/2024 until 11/19/2025 [facility] Comment on above: 1 Occurrences starting 11/19/2024 until 11/19/2025 Rheumatoid factor [Units/volume] in Serum by Nephelometry Rheumatoid factor Lab Routine Rheumatoid arthritis involving multiple sites, unspecified whether rheumatoid factor present ([facility] 11/19/2024 2:38 PM EDT [facility] Vitamin D+Metabolite s [Mass/volume] in Serum or Plasma Vitamin D 25 hydroxy Lab Routine Rheumatoid arthritis involving multiple sites, unspecified whether rheumatoid factor present ([facility] 11/19/2024 2:38 PM EDT [facility] Immunizations Immunization Date Immunization Notes Care Provider Fa cili 07-12-2023 influenza, injectabl e, quadrivalent, preservative free Zen Flores DO Work Phone: [facility] 07-12-2023 influenza virus vacc ine, unspecified formulation Zen Furlong DO Work Phone: [facility] 08-05-2022 influenza, injectabl e, quadrivalent, preservative free Zen Furlong DO Work Phone: [facility] 09-01-2021 Pfizer Purple Cap SARS-CoV-2 Vaccination Zeyad Tate MD Work Phone: [facility] 05-21-2021 influenza, injectabl e, quadrivalent, preservative free Zen Furlong DO Work Phone: [facility] 11-27-2020 Pfizer Purple Cap SARS-CoV-2 Vaccination Zeyad Tate MD Work Phone: [facility] 11-06-2020 COVID-19, mRNA, LNP- S, PF, 30mcg/0.3mL Dose Zen Furlong DO Work Phone: [facility] 11-03-2020 SARS-COV-2 (COVID-19 ) Vaccine, Unspecified Zen Furlong DO Work Phone: [facility] 06-11-2020 pneumococcal conjuga te vaccine, 13 valent Zen Furlong DO Work Phone: [facility] 06-05-2020 influenza virus vacc ine, unspecified formulation Zen Furlong DO Work Phone: [facility] 06-05-2020 pneumococcal vaccine , unspecified formulation Zen Furlong DO Work Phone: [facility] 05-20-2020 influenza, injectabl e, quadrivalent, preservative free Zen Furlong DO Work Phone: [facility] 05-20-2020 pneumococcal polysaccharide vaccine, 23 valent Zen Furlong DO Work Phone: [facility] 09-17-2019 tetanus toxoid, redu timmy diphtheria toxoid, and acellular pertussis vaccine, adsorbed Zen Furlong DO Work Phone: [facility] 06-08-2019 influenza, injectabl e, quadrivalent, preservative free Zen Flores DO Work Phone: [facility] 06-04-2019 influenza, seasonal, injectable Zeyad Tate MD Work Phone: [facility] 11-28-2012 tetanus toxoid, unspecified formulation Zen Flores DO Work Phone: [facility] Payers Date Payer Category Payer Medicaid [id number] 2022 Medicaid [id number] 2021 Medicare AETNA MEDICARE A ETNA MEDICARE PLAN (HMO) [id number] 2021-Present [id number] [place] [id number] 2021 Medicare HMO AETNA MEDICARE [id number] 1959 Unknown [id number] 2.16.840.1.797025.3.579.2. 647 1959 Unknown [id number] 2.16.840.1.886193.3.579.2. 647 1959 Unknown [id number] 2.16.840.1.621070.3.579.2. 593 1959 Unknown [id number] 2.16.840.1.628946.3.579.2. 59 1959 Unknown [id number] 2.16.840.1.788478.3.579.2. 593 1959 Unknown [id number] 2.16.840.1.078327.3.579.2. 59 1959 Unknown [id number] 2.16.840.1.408349.3.579.2. 593 1959 Unknown [id number] 2.16.840.1.901481.3.579.2. 59 1959 Unknown [id number] 2.16.840.1.408921.3.579.2. 593 1959 Unknown [id number] 2.16.840.1.548364.3.579.2. 59 1959 Unknown [id number] 2.16.840.1.546691.3.579.2. 593 1959 Unknown [id number] 2.16.840.1.832337.3.579.2. 593 1959 Unknown [id number] 2.16.840.1.853523.3.579.2. 593 1959 Unknown [id number] 2.16.840.1.732717.3.579.2. 59 1959 Unknown [id number] 2.16.840.1.732321.3.579.2. 593 1959 Unknown [id number] 2.16.840.1.540581.3.579.2. 59 1959 Unknown [id number] 2.16.840.1.865262.3.579.2. 593 1959 Unknown [id number] 2.16.840.1.307170.3.579.2. 59 1959 Unknown [id number] 2.16.840.1.173836.3.579.2. 593 1959 Unknown [id number] 2.16.840.1.575534.3.579.2. 593 1959 Unknown [id number] 2.16.840.1.024118.3.579.2. 593 1959 Unknown [id number] 2.16.840.1.485360.3.579.2. 593 1959 Unknown [id number] 2.16.840.1.663388.3.579.2. 593 1959 Unknown [id number] 2.16.840.1.834007.3.579.2. 593 1959 Unknown [id number] 2.16.840.1.115648.3.579.2. 593 1959 Unknown [id number] 2.16.840.1.285944.3.579.2. 593 1959 Unknown [id number] 2.16.840.1.831886.3.579.2. 593 1959 Unknown [id number] 2.16.840.1.438364.3.579.2. 593 1959 Unknown [id number] 2.16.840.1.677372.3.579.2. 593 1959 Unknown [id number] 2.16.840.1.201519.3.579.2. 593 1959 Unknown [id number] 2.16.840.1.405009.3.579.2. 1286 1959 Unknown [id number] 2.16.840.1.800642.3.579.2. 128 1959 Unknown [id number] 2.16.840.1.967073.3.579.2. 1286 1959 Unknown [id number] 2.16.840.1.346357.3.579.2. 1286 -16-1960 Unknown [id number] 2.16.840.1.990491.3.579.2. 128 1959 Unknown [id number] 2.16.840.1.000403.3.579.2. 1259 1959 Unknown [id number] 2.16.840.1.331988.3.579.2. 1259 1959 Unknown [id number] 2.16.840.1.373708.3.579.2. 128 1959 Unknown [id number] 2.16.840.1.361137.3.579.2. 1285 1959 Unknown [id number] 2.16840.1.994656.3.579.2. 1285 1959 Unknown [id number] 2.840.1.054768.3.579.2. 1285 1959 Unknown [id number] 2.16840.1.746775.3.579.2. 1285 1959 Unknown [id number] 2.16840.1.187030.3.579.2. 1285 1959 Unknown [id number] 2.16840.1.311460.3.579.2. 1285 1959 Unknown [id number] 2.840.1.154398.3.579.2. 1285 1959 Medicare [id number] 1960 Self-pay Private Health Insurance [facility] [id number] Unknown [id number] Social History Date Type Detail Facility Start: 11-19-2022 End: 07-01-2024 Sex Assigned At [facility] Start: 07-27-2022 End: 07-01-2024 Tobacco smoking status MNIS Ex-smoker [facility] Start: 09-05-1975 End: 06-06-1997 History of tobacco use Current smoker [facility] Start: 09-05-1975 End: 06-06-1997 History of tobacco use Cigarette Smoker [facility] Start: 07-27-2022 End: 07-01-2024 Tobacco use and exposure Smokeless tobacco non-user [facility] Start: 08-14-2024 End: 11-19-2024 Alcoholic beverage intake Ex-drinker (finding) [facility] Start: 11-19-2022 End: 07-01-2024 History of Social function [facility] Start: 1960 Sex assigned at Not on file [facility] Start: 09-15-2022 Sexual orientation Heterosexual (finding) [facility] How often do you nee d to have someone help you when you read instructions, pamphlets, or other written material from your doctor or pharmacy [SILS] Never [facility] Do you belong to any clubs or organizations such as adventist groups, [employer], [employer] or [email or web address] groups, or school groups? No [facility] Are you now , , , , never or living with a partner? [facility] How often to you hav e a drink containing alcohol? Never [facility] How hard is it for y ou to pay for the very basics like food, housing, medical care, and heating Not very hard [facility] Do you feel stress - tense, restless, nervous, or anxious, or unable to sleep at night because your mind is troubled all the time - these days [OSQ] To some extent [facility] (I/We) worried wheth er (my/our) food would run out before (I/we) got money to buy more. Sometimes true [facility] The food that (I/we) bought just didn't last, and (I/we) didn't have money to get more. Never true [facility] Do you belong to any clubs or organizations such as adventist groups, [employer], [employer] or [email or web address] groups, or school groups? Yes [facility] Start: 1960 Sex Assigned At Female [facility] Start: 09-15-2022 Gender identity Identifies as female gender (finding) [facility] How hard is it for y ou to pay for the very basics like food, housing, medical care, and heating Somewhat hard [facility] Start: 09-18-2019 Sex Female (finding) [facility] Medical Equipment Procedure Code Equipment Code Equipment Origin al Text Equipment Identifier Dates End: 09-19-2024 Clinical Notes 07-27-2021 to 11-19-2024 Collin Saba MD - 11/19/2024 2:15 PM Jon Hurt MD - 09/19/2024 12:14 PM Melina Hurt MD - 09/19/2024 12:14 PM Melina Hurt MD - 09/19/2024 12:14 PM EST Note Date & Type Note Facility 11-19-2024 History of Present illness Narrative Images from the original note were not included. [id number] [address] Date of Service: 11/19/2024 Subjective: Monica Acosta is a 63 y.o. female who presents today for evaluation rheumatoid arthritis. Patient is seen at the request of RUDOLPH HURT MD. This is the 1st clinic visit for this 63-year-old female patient who has been referred to us with diagnosis of rheumatoid arthritis Patient symptoms started in age 39 years with joint pain involving the joints of the hands, knees, ankles, hips, shoulders, elbows, feet, associated with swelling, and stiffness, for which she has been was given methotrexate which she took for few weeks and stop because fatigue, subsequently was given leflunomide for 6 months however stop because of follow-up issues, patient said that she was given 1 time Humira injection and stopped because of insurance issues. At least for the past 6 weeks patient has been on a on Celebrex for pain control. Patient has been given the following medications including atenolol, atorvastatin, Celebrex, cyclobenzaprine, duloxetine, , insulin, Past surgical gall bladder removal,triple bypass heart,. Past medical hyperlipidemia, hypertension, diabetes Smoking history negative The following portions of the patient's history were reviewed and updated as appropriate: allergies, current medications, past family history, past medical history, past social history, past surgical history and problem list. Review of Systems: Review of Systems Constitutional: Positive for fatigue. HENT: Negative. Eyes: Negative. Respiratory: Negative. Cardiovascular: Negative. Gastrointestinal: Negative. Genitourinary: Negative. Musculoskeletal: Positive for arthralgias and joint swelling. Skin: Negative for rash. Allergic/Immunologic: Lisinopril rash Neurological: Negative for seizures, syncope, weakness and headaches. Hematological: Does not bruise/bleed easily. Psychiatric/Behavioral: Positive for dysphoric mood. Current Outpatient Medications Medication Sig Dispense Refill atenoloL (TENORMIN) 50 mg tablet Take 1 tablet (50 mg total) by mouth in the morning. 90 tablet 1 atorvastatin (LIPITOR) 80 mg tablet Take 1 tablet (80 mg total) by mouth in the morning. 100 tablet 3 BABY ASPIRIN ORAL Take 81 mg by mouth daily. celecoxib (CeleBREX) 200 mg capsule take 1 capsule by mouth twice a day every morning and BEFORE BEDTIME 60 capsule 2 cholecalciferol, vitamin D3, 5,000 units tablet cholecalciferol (vitamin D3) 125 mcg (5,000 unit) tablet DULoxetine (CYMBALTA) 60 mg capsule Take 1 capsule (60 mg total) by mouth in the morning. 90 capsule 1 finerenone (KERENDIA) 10 mg tablet Take 10 mg by mouth in the morning. 30 tablet 5 gabapentin (NEURONTIN) 100 mg capsule Take 1 capsule (100 mg total) by mouth 3 (three) times a day. 90 capsule 2 HYDROcodone-acetaminophen (NORCO) 7.5-325 mg per tablet Take 1 tablet by mouth in the morning. Max Daily Amount: 1 tablet. 21 tablet 0 insulin asp prt-insulin aspart (NovoLOG 70/30) 100 unit/mL (70-30) injection Inject under the skin. insulin aspart U-100 (NovoLOG) 100 unit/mL injection Novolog U-100 Insulin aspart 100 unit/mL subcutaneous solution nitroglycerin (NITROSTAT) 0.4 MG SL tablet 1 sublingually Q5 minutes prn chest pain 25 tablet 1 blood-glucose meter (ZEturf VERIO REFLECT METER) [facility] directed cyclobenzaprine (FLEXERIL) 10 mg tablet Take 1 tablet (10 mg total) by mouth 3 (three) times a day as needed for muscle spasms. 30 tablet 1 DULoxetine (CYMBALTA) 30 mg capsule take 1 capsule by mouth every morning 30 capsule 0 hydroxychloroquine (PLAQUENIL) 200 mg tablet Take 1 tablet (200 mg total) by mouth in the morning and 1 tablet (200 mg total) before bedtime. 60 tablet 2 lancets (ONETOUCH DELICA PLUS LANCET) 33 gauge misc TEST DIRECTED 5 TIMES A DAY leflunomide (ARAVA) 20 mg tablet Take 1 tablet (20 mg total) by mouth in the morning. 30 tablet 5 ONETOUCH VERIO TEST STRIPS strip TEST DIRECTED 5 TIMES A DAY No current facility-administered medications for this visit. Physical Exam: Physical Exam Vitals and nursing note reviewed. Constitutional: General: She is not in acute distress. Appearance: She is well-developed. She is not diaphoretic. HENT: Head: Normocephalic and atraumatic. Right Ear: External ear normal. Left Ear: External ear normal. Nose: Nose normal. Eyes: Conjunctiva/sclera: Conjunctivae normal. Pupils: Pupils are equal, round, and reactive to light. Neck: Thyroid: No thyromegaly. Cardiovascular: Rate and Rhythm: Normal rate and regular rhythm. Heart sounds: Normal heart sounds. No murmur heard. No friction rub. Pulmonary: Effort: Pulmonary effort is normal. No respiratory distress. Breath sounds: No stridor. No wheezing or rales. Abdominal: General: There is no distension. Palpations: Abdomen is soft. There is no mass. Tenderness: There is no guarding. Musculoskeletal: General: No tenderness or deformity. Normal range of motion. Cervical back: Normal range of motion and neck supple. Comments: Ulnar deviation right wrist with some subluxation at the MCP levels with painful range motion and limited range of motion of wrists. Left side putting year middle finger, reduced range motion of the MCPs as well as wrists. Right elbow subcutaneous nodule. Left foot cooked -up deformities Skin: General: Skin is warm and dry. Findings: No erythema or rash. Neurological: Mental Status: She is alert and oriented to person, place, and time. Cranial Nerves: No cranial nerve deficit. Coordination: Coordination normal. Psychiatric: Behavior: Behavior normal. BUSTILLOS-28 (If Applicable) There is currently no information documented on the homunculus. Go to the Rheumatology activity and complete the homunculus joint exam. BUSTLILOS-28 (CRP): -- BUSTILLOS-28 (ESR): -- Tender (BUSTILLOS-28): -- Swollen (BUSTILLOS-28): -- BP 114/64 Resp 18 Ht 170.2 cm (5' 7.01 ) Wt 84.4 kg (186 lb) BMI 29.12 kg/m : reviewed Labs and Imaging: reviewed and discussed with the patient during the visit.I Lab Results Component Value Date WBC 10.1 03/26/2024 HGB 13.5 03/26/2024 HCT 40.1 03/26/2024 MCV 91 03/26/2024 GFR 55 (L) 01/29/2020 GFR >60 01/29/2020 AST 24 03/26/2024 Imaging: Assessment and Plan: Monica Acosta is a 63 y.o. female patient with: 1. Rheumatoid arthritis involving multiple sites, unspecified whether [place] factor present [place] [place] - Vitamin D 25 hydroxy; Future - Vitamin B12; Future - TSH; Future - Comprehensive metabolic panel; Future - CBC auto differential; Future - C-reactive protein; Future - Erythrocyte Sedimentation Rate (ESR); Future - Rheumatoid factor; Future - CCP Ab; Future - X-ray osseous survey limited; Future - X-ray chest 2 views; Future - hydroxychloroquine (PLAQUENIL) 200 mg tablet; Take 1 tablet (200 mg total) by mouth in the morning and 1 tablet (200 mg total) before bedtime. Dispense: 60 tablet; Refill: 2 - leflunomide (ARAVA) 20 mg tablet; Take 1 tablet (20 mg total) by mouth in the morning. Dispense: 30 tablet; Refill: 5 - CBC auto differential; Future - Comprehensive metabolic panel; Future - CBC auto differential; Future - Comprehensive metabolic panel; Future 2. Long-term use of Plaquenil 3. Long-term use of leflunomide therapy - Comprehensive metabolic panel; Future - CBC auto differential; Future - CBC auto differential; Future - Comprehensive metabolic panel; Future - CBC auto differential; Future - Comprehensive metabolic panel; Future At this point I am seeing this patient with longstanding nodule rheumatoid with deformities who has not been on treatment for many, she was given early in her disease short courses of medication including methotrexate and leflunomide and 1 injection of Humira. Putting order for lab tests as well as x-rays. Restart patient on hydroxychloroquine as well as leflunomide. Side effects were explained the patient and advised that she needs to see Ophthalmology. Lab tests today, 2 weeks and 1 month RTC 1 months This note was created with the assistance of a speech recognition program. While intending to generate a timely document that accurately reflects the content of the visit, no guarantee can be provided that every grammatical or spelling mistake has been or will be identified or corrected. Thank you for your understanding. [facility] Rheumatology Dr. Collin Saba MD [address], [address] [place] [address] Office: [phone] documented in this encounter [facility] 10-15-2024 Note [facility] 09-19-2024 History of Present illness Narrative Associated Problem(s): Type I diabetes [...] atenolol. Associated Problem(s): PAD (peripheral artery disease) ([facility]/HCC) Not lightheaded and monitor. Return to vascular. Associated Problem(s): Coronary artery disease involving [place] coronary artery of [place] heart without angina pectoris ([facility]) No pain and continue medication. Recommend return [...] Return to vascular. Coronary artery disease involving [place] coronary artery of [place] heart without angina pectoris (CMS/HCC) No pain [...] MG tablet methotrexate 2.5 MG tablet HYDROcodone-acetaminophen ([place]) 5-325 MG tablet Other Relevant Orders Rheumatoid [...] Hepatic function panel documented in this encounter [facility] 08-21-2024 History of Present illness Narrative Monica Acosta is a 63 [...] 50%, bolus 50% , avg 217, CGM 4-62-24 avg 168 IM: 01/2022 follow up from type 1 diabetes. Basal rates at 12 a.m. 1; 8 a.m., 1.2, 12 p.m 1. ICR at 12 am 9, 8 a, 8.8 12 PM 8, 5 PM 8. ISS 1:50. A1c in the office 8.6. M 50%, AUTO 50, Basal 60%, bolus 40% , avg 231, CGM 2-47-51 IM:: 06/2021 follow up from type 1 [...] the office 7.8. had back surgery in [place] IM: 03/2020 follow up from type 1 [...] saw her today with tele medicine with [facility]. HPI: 09/24 New patient sent from Dr. [...] 80 mg, Daily Blood Glucose Monitoring Suppl (OneReDoc Softwareuch Verio Reflect) w/Device kit Does not apply Cariprazine HCl (Vraylar) 1.5 MG capsule Oral celecoxib (CELEBREX) 200 mg, 2 times daily cholecalciferol (VITAMIN D-3) 1,000 Units, Oral, Daily Continuous Glucose Clothing Consultant (FreeStyle Tru 14 Day [place]) device Does not apply Continuous Glucose Sensor [...] Other, As needed, Use as instructed HYDROcodone-acetaminophen ([place]) 5-325 MG tablet No dose, route, or [...] (BMI) 31.0-31.9, adult CAD (coronary artery disease) ([facility]) Current use of insulin ([facility] Diabetes ([facility]) Dietary counseling and surveillance Encounter for fitting and adjustment of insulin pump Essential (primary) hypertension ([facility]) Fracture of right hand Heart problem High cholesterol ([facility]) History of open heart surgery HTN (hypertension) ([facility] Hypertension ([facility]) shelter (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 ([facility]) Mixed hyperlipidemia ([facility]) Obesity, unspecified PAD (peripheral artery disease) ([facility]) Personal history of other medical treatment Triple Bypass POTS (postural orthostatic tachycardia syndrome) Presence of insulin pump (external) (internal) Rheumatoid arthritis ([facility]) Type 1 diabetes mellitus with other circulatory complications ([facility]) Vitamin D deficiency, unspecified Past Surgical History: [...] (CMS/HCC) 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 documented in this encounter [facility] 08-13-2024 Note [facility] 07-09-2024 Note [facility] 06-11-2024 Note [facility] 05-14-2024 Note [facility] 05-01-2024 Note Chronic CHF, unknown type. [facility] 05-01-2024 Note [facility] 05-01-2024 Note [facility] 05-01-2024 Note [facility] 04-30-2024 Note [facility] 04-30-2024 Note [facility] 04-30-2024 Note [facility] 04-30-2024 Note [facility] 04-30-2024 Miscellaneous Notes Patient is at [facility] she fell and broke both legs and will be transferring to the [place] for rehab documented in this encounter [facility] 04-30-2024 Telephone encounter Note Patient is at [facility] she fell and broke both legs and will be transferring to the [place] for rehab [facility] 04-30-2024 Note [facility] 04-30-2024 Note [facility] 04-29-2024 Note [facility] 04-29-2024 Note [facility] 04-28-2024 Note [facility] 04-28-2024 Note [facility] 04-27-2024 Note [facility] 04-26-2024 Note [facility] 04-26-2024 Note [facility] 04-26-2024 Note [facility] 04-26-2024 Note 10:00-SW sent update s to [facility]-await precert. OTM will continue to follow. [facility] 04-26-2024 Note [facility] 04-25-2024 Note [facility] 04-25-2024 Note 8:30-SW sent updates to [facility]-currently awaiting precert that was requested yesterday. OTM will continue to follow. [facility] 04-25-2024 Note [facility] 04-24-2024 Note [facility] 04-24-2024 Note [facility] 04-24-2024 Note [facility] 04-24-2024 Note [facility] 04-24-2024 Note [facility] 04-24-2024 Note [facility] 04-23-2024 Note New referral sent to Rosendo Banda [facility] 04-23-2024 Note [facility] 04-23-2024 Note [facility] 04-23-2024 Note [facility] 04-23-2024 Note [facility] 04-23-2024 Note [facility] 04-22-2024 Note Addendum created 1430 by Kirt Nicole MD Intraprocedure Event edited, Intraprocedure Staff edited [facility] 04-22-2024 Note [facility] 04-22-2024 Note [facility] 04-22-2024 Note [facility] 04-22-2024 Note [facility] 04-22-2024 Note [facility] 04-22-2024 Note [facility] 04-13-2024 History of Present illness Narrative Subjective Patient ID: Monica Acosta is a 63 y.o. female. Nadia presents today for recheck of her chronic pain. She had no hydrocodone in her urine at last check despite the fact that she is adamant that she says she takes it. I offered to recheck it again today but she declined. She would rather just try to get off of it and take something else for pain and not have to hassle with all that is involved with opioid medications such as drug monitoring. She does have rheumatoid arthritis pain. She was seeing a telephone collector in [place] prior to coming to [place] and was referred to Rheumatology here but had to keep cancelling the appointment due to illnesses. She is taking Celebrex. She says that her back where she had the compression fracture is still generating a significant amount of her pain. That was the primary reason for using hydrocodone. The following portions of the patient's history were reviewed and updated as appropriate: allergies, current medications, past family history, past medical history, past social history, past surgical history, problem list, and medication reconciliation was completed including current medication and post discharge medication. Review of Systems Constitutional: Negative. Musculoskeletal: Positive for arthralgias, back pain, joint swelling and myalgias. Neurological: Negative. Objective Physical Exam Vitals reviewed. Exam conducted with a geophysical prospecting surveyor present. Constitutional: General: She is not in acute distress. HENT: Head: Normocephalic. Neck: Vascular: No carotid bruit. Cardiovascular: Rate and Rhythm: Normal rate and regular rhythm. Pulses: Normal pulses. Heart sounds: Normal heart sounds. No murmur heard. Pulmonary: Effort: Pulmonary effort is normal. No respiratory distress. Breath sounds: Normal breath sounds. No wheezing, rhonchi or rales. Musculoskeletal: General: Swelling (Multiple joints), tenderness and deformity (Ulnar deviation of multiple fingers) present. Cervical back: Neck supple. Lymphadenopathy: Cervical: No cervical adenopathy. Neurological: General: No focal deficit present. Mental Status: She is alert and oriented to person, place, and time. Psychiatric: Attention and Perception: Attention normal. Mood and Affect: Mood and affect normal. Speech: Speech normal. Behavior: Behavior normal. Behavior is cooperative. Thought Content: Thought content normal. Cognition and Memory: Cognition normal. Judgment: Judgment normal. Assessment/Plan Nadia was seen today for discuss pain options. Diagnoses and all orders for this visit: Rheumatoid arthritis involving multiple sites, unspecified whether rheumatoid factor present [place] [place] [facility] [place], [place]; Future Refer back to Rheumatology. Importance of modifying disease progression discussed. Stay on Celebrex for now since she has stage 2 chronic kidney disease. 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 She has stage 2 chronic kidney disease with microalbuminuria Diabetic polyneuropathy associated with type 1 diabetes mellitus [place] [place] - gabapentin (NEURONTIN) 100 mg capsule; Take 1 capsule (100 mg total) by mouth 3 (three) times a day. We will start gabapentin 100 mg 3 times a day. Hyperkalemia Recheck potassium. If normal then consider kerendia Stage 2 chronic kidney disease due to type 1 diabetes mellitus Recheck BMP. Follow-up with endocrinology as directed Compression fracture of L1 vertebrae, sequelae Patient defers referral to pain management. We will wean her off hydrocodone. She is taking 7.5 mg daily. We will decrease to 5 mg daily for another 2 weeks and then stop. We will start gabapentin 100 mg 3 times a day. Stay on Celebrex for now since she has stage 2 chronic kidney disease. Other orders - Discontinue: finerenone (KERENDIA) 10 mg tablet; Take 10 mg by mouth in the morning. documented in this encounter [facility] 03-30-2024 Miscellaneous Notes Patient is very upset and would like to ask you some questions like what stage her kidneys are in. She stated if you can call her when you are done with patients today that would be great. documented in this encounter [facility] 03-30-2024 Telephone encounter Note Patient is very upset and would like to ask you some questions like what stage her kidneys are in. She stated if you can call her when you are done with patients today that would be great. [facility] 03-29-2024 Miscellaneous Notes Patient called and she is complaining about her drug screen and norco, she said she takes it every day and now she is out. I dont know what you would like to do I sent in few more and then we need to discuss different treatment options Notified and appointment scheduled documented in this encounter [facility] 03-29-2024 Telephone encounter Note Patient called and she is complaining about her drug screen and norco, she said she takes it every day and now she is out. I dont know what you would like to do [facility] 03-29-2024 Telephone encounter Note I sent in few more and then we need to discuss different treatment options [facility] 03-29-2024 Telephone encounter Note Notified and appointment scheduled [facility] 03-27-2024 History of Present illness Narrative Urine specimen obtained for drug screen documented in this encounter [facility] 03-26-2024 History of Present illness Narrative Images from the original note were not included. Subjective Patient ID: Monica Acosta is a 63 y.o. female. Nadia is here to recheck her hydrocodone use. She is using 1-2 a day for her compression fracture of her spine and rheumatoid arthritis. She had been only using 1 a day until her recent fall. Her neck and shoulder are feeling better. It is providing moderate relief. Pain gets up to about an 8 on a scale of 1-10. She is also taking Celebrex 200 mg twice a day and Flexeril as needed. She has not having any side effects. She is fatigued. She would like labs checked. She would like to see if she is anemic. She was anemic in the past. She denies sleep apnea symptoms, snoring, witnessed apnea or headaches. She sees the tip puncher as week for type 1 diabetes. The following portions of the patient's history were reviewed and updated as appropriate: allergies, current medications, past family history, past medical history, past social history, past surgical history, problem list, and medication reconciliation was completed including current medication and post discharge medication. Review of Systems Objective Physical Exam Vitals reviewed. Constitutional: General: She is not in acute distress. Appearance: She is overweight. HENT: Head: Normocephalic and atraumatic. Cardiovascular: Rate and Rhythm: Normal rate and regular rhythm. Pulses: Normal pulses. Heart sounds: Normal heart sounds. No murmur heard. Pulmonary: Effort: Pulmonary effort is normal. No respiratory distress. Breath sounds: Normal breath sounds. No wheezing, rhonchi or rales. Abdominal: General: Bowel sounds are normal. Palpations: Abdomen is soft. Tenderness: There is no abdominal tenderness. Musculoskeletal: Right hand: Swelling, deformity and tenderness present. Decreased range of motion. Left hand: Swelling, deformity and tenderness present. Decreased range of motion. Cervical back: Neck supple. No spasms. Back: Left knee: Normal. Right lower leg: No edema. Left lower leg: No edema. Lymphadenopathy: Cervical: No cervical adenopathy. Neurological: General: No focal deficit present. Mental Status: She is alert and oriented to person, place, and time. Cranial Nerves: Cranial nerves 2-12 are intact. Psychiatric: Attention and Perception: Attention normal. Mood and Affect: Mood normal. Speech: Speech normal. Behavior: Behavior normal. Behavior is cooperative. Thought Content: Thought content normal. Judgment: Judgment normal. Assessment/Plan Nadia was seen today for controlled substance. Diagnoses and all orders for this visit: Compression fracture of L1 vertebra, sequela Stable. Continue current regimen. She is a high risk medication with benefit. Check urine for drugs of abuse and presence of medication. She will try to cut back to 1 a day on the hydrocodone since her shoulder and neck are feeling better. Rheumatoid arthritis involving multiple sites, unspecified whether rheumatoid factor present [place] [place] As above. Other fatigue - CBC; Future Check CBC. [place] sleep scale showed normal risk. She was moderate risk with STOPBANG scale. May need further workup Medication monitoring encounter - Drug Screen, Urine; Future Check urine for drugs of abuse. Primary hypertension - Comprehensive metabolic panel; Future Check CMP. Blood pressure at goal. Type 1 diabetes mellitus with diabetic polyneuropathy ([facility]) - Microalbumin - Albumin: Creatinine Urine Ratio; Future Check ACR. Overweight She is overweight. She would benefit from weight loss. Diet exercise and weight loss discussed. Not really able to exercise much due to rheumatoid arthritis documented in this encounter [facility] 02-09-2024 History of Present illness Narrative Images from the original note were not included. Subjective Patient ID: Monica Acosta is a 63 y.o. female. She was at [facility] watching grandson play T-ball and her son put down her chair and it was uneven and she fell backwards in her chair. She hit her head on the ground. She has a concussion. She did not lose consciousness. She did not get up right away. She laid there and people called the squad and told her not to move since she landed on her head and neck. She is nauseated, even more dizzy than usual. The back of her head hurts. She also some how hurt her knee when she tried to do a somersault . The knee pain is gone now. She also hurt her right shoulder but it hurts now more in the muscle by the neck and shoulder. She has trouble lifting her arm above the level of her head. She did drive herself to the office today. Follow-up Associated symptoms include arthralgias and headaches. The following portions of the patient's history were reviewed and updated as appropriate: allergies, current medications, past family history, past medical history, past social history, past surgical history, problem list, and medication reconciliation was completed including current medication and post discharge medication. Review of Systems Constitutional: Negative. Respiratory: Negative. Cardiovascular: Negative. Musculoskeletal: Positive for arthralgias and back pain. Neurological: Positive for dizziness, light-headedness and headaches. Psychiatric/Behavioral: Negative. Objective Physical Exam Constitutional: General: She is not in acute distress. Appearance: She is overweight. HENT: Head: Normocephalic and atraumatic. Comments: She has point tenderness on the back of her head Cardiovascular: Rate and Rhythm: Normal rate and regular rhythm. Pulses: Normal pulses. Heart sounds: Normal heart sounds. Pulmonary: Effort: Pulmonary effort is normal. No respiratory distress. Breath sounds: Normal breath sounds. No wheezing, rhonchi or rales. Musculoskeletal: Right shoulder: Tenderness present. No swelling, deformity, effusion, laceration, bony tenderness or crepitus. Decreased range of motion (Unable to actively abduct greater than 110 but I could passively abductor to about 150 ; she could internally and externally rotate by touching the back of her head and her mid back but with pain). Cervical back: Spasms and tenderness present. Thoracic back: Spasms and tenderness present. Back: Left knee: Normal. Comments: Tenderness and spasm of the right trapezius, upper back area Neurological: General: No focal deficit present. Mental Status: She is alert and oriented to person, place, and time. Cranial Nerves: Cranial nerves 2-12 are intact. Psychiatric: Attention and Perception: Attention normal. Mood and Affect: Mood normal. Speech: Speech normal. Behavior: Behavior normal. Behavior is cooperative. Thought Content: Thought content normal. Judgment: Judgment normal. Assessment/Plan Nadia was seen today for follow-up. Diagnoses and all orders for this visit: Concussion without loss of consciousness, initial encounter Discussed concussion measures. She should avoid electronics, loud noises and excessive stimulation. Rest frequently. When he came into the room she was on her phone. She should avoid driving until her dizziness resolves. ER report, x-rays and CT scans reviewed and discussed with patient. Fractures were noted. No intracranial hemorrhage. Call if worse or new symptoms arise. Should slowly resolve over time. May take weeks though. Strain of neck muscle, initial encounter - cyclobenzaprine (FLEXERIL) 10 mg tablet; Take 1 tablet (10 mg total) by mouth 3 (three) times a day as needed for muscle spasms. Will add Flexeril 10 mg every 8 hours as needed for muscle spasms. Strain of right shoulder, initial encounter [id number] exercises given. Risk of frozen shoulder discussed. She defers physical therapy. Medications as above. Overweight She is overweight. It is contributing to diabetes. She would benefit from weight loss Contusion of left knee, initial encounter Resolved documented in this encounter [facility] 02-07-2024 Miscellaneous Notes ----- Message from BECCA Cordero sent at 12/05/2023 1:22 PM EDT ----- Regarding: controlled substance Due late February, early March for RA Sent mychart msg documented in this encounter [facility] 02-07-2024 Telephone encounter Note ----- Message from BECCA Cordero sent at 12/05/2023 1:22 PM EDT ----- Regarding: controlled substance Due late February, early March for RA [facility] 02-07-2024 Telephone encounter Note Sent mychart msg [facility] 01-27-2024 History of Present illness Narrative The OARRS/MAPPS database was reviewed today and found to be appropriate. No indication of medication diversion, or non compliance. documented in this encounter [facility] 12-05-2023 History of Present illness Narrative .Subjective Patient ID: Monica Acosta is a 62 y.o. female. She has been taking the hydrocodone for rheumatoid arthritis more so than her low back pain although her low back still gives her pain Her rheumatoid arthritis makes her ache in multiple joints She does not see a telephone collector for this She has been taking it [...] multiple sites, unspecified whether rheumatoid factor present [place] [place] - HYDROcodone-acetaminophen (NORCO) 7.5-325 mg per tablet; Take 1 tablet by mouth 2 (two) times a day as needed for pain. Status post partial amputation of left foot ([facility]) Diabetic polyneuropathy associated with type 2 diabetes mellitus [place] [place] TSH; Future Severe depression ([facility]) PAD (peripheral artery disease) ([facility]) Compression fracture of L1 vertebra with routine [...] Cordero 12/05/23 1329 documented in this encounter [facility] 11-29-2023 History of Present illness Narrative The OARRS/MAPPS database was reviewed today and found to be appropriate. No indication of medication diversion, or non compliance. BECCA Cordero 11/29/23 0745 documented in this encounter [facility] 11-15-2023 History of Present illness Narrative The OARRS/MAPPS database was reviewed today and found to be appropriate. No indication of medication diversion, or non compliance. BECCA Cordero 11/15/23 0759 documented in this encounter [facility] 10-16-2023 Miscellaneous Notes She has requesting a refill of her controlled substance but she is overdue for an appointment. She needs to set 1 up as soon as possible documented in this encounter [facility] 10-16-2023 Telephone encounter Note She has requesting a refill of her controlled substance but she is overdue for an appointment. She needs to set 1 up as soon as possible [facility] Miscellaneous Notes Rx sent in. She is due for a controlled substance recheck next week documented in this encounter [facility] 10-04-2023 Telephone encounter Note Rx sent in. She is due for a controlled substance recheck next week [facility] Evaluation note Encounter Date Diagnosis [...] Patient care instructions given in writting by [facility] Care At Home document [facility] Other Evaluation note* Diagnosis Type 1 diabetes mellitus with hyperglycemia (HCC) (CMS/HCC)- Primary Essential (primary) hypertension (CMS/HCC) Unspecified essential hypertension Vitamin D deficiency, unspecified Dietary counseling and surveillance Mixed hyperlipidemia (CMS/HCC) Mixed hyperlipidemia Presence of insulin pump (external) (internal) shelter (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 ([facility]) Encounter for fitting or adjustment of insulin pump Fitting and adjustment of insulin pump documented in this encounter [facility]* Diagnosis Rheumatoid arthritis involving multiple sites with positive rheumatoid factor (CMS/HCC)- Primary Type I diabetes mellitus with polyneuropathy (CMS/HCC) Coronary artery disease involving [place] coronary artery of [place] heart without angina pectoris (CMS/HCC) PAD (peripheral artery disease) ([facility]) Unspecified peripheral vascular disease POTS (postural orthostatic tachycardia syndrome) Unspecified tachycardia Type 1 diabetes mellitus with other circulatory complications (CMS/HCC) Type 1 diabetes mellitus with hyperglycemia (HCC) ([facility]) Encounter for long-term (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 medications Encounter for long-term (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 other medications Dyslipidemia (CMS/HCC) Other 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 hyperlipidemia shelter (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 ([facility]) documented in this encounter [facility]* Diagnosis Compression fracture of L1 vertebra with routine healing, subsequent encounter documented in this encounter [facility]* Diagnosis Rheumatoid arthritis involving multiple sites with positive rheumatoid factor ([facility]/HCC)- Primary Type I diabetes mellitus with polyneuropathy (CMS/HCC) Coronary artery disease involving [place] coronary artery of [place] heart without angina pectoris (CMS/HCC) PAD (peripheral artery disease) ([facility]/HCC) Unspecified peripheral vascular disease POTS (postural orthostatic tachycardia syndrome) Unspecified tachycardia Type 1 diabetes mellitus with other circulatory complications (CMS/HCC) Type 1 diabetes mellitus with hyperglycemia (HCC) ([facility]) Encounter for long-term (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 medications Encounter for long-term (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 other medications Dyslipidemia (CMS/HCC) Other 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 hyperlipidemia 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 Diagnosis Rheumatoid arthritis involving multiple sites, unspecified whether rheumatoid factor present ([facility]) [facility]* Diagnosis Compression fracture of L1 vertebra with routine healing, subsequent encounter [facility]* Diagnosis Compression fracture of L1 vertebra with routine healing, subsequent encounter [facility]* Diagnosis Compression fracture of L1 vertebra, sequela- Primary Rheumatoid arthritis involving multiple sites, unspecified whether rheumatoid factor present ([facility]) Other fatigue Medication monitoring encounter Encounter for therapeutic drug monitoring Primary hypertension Unspecified essential hypertension Type 1 diabetes mellitus with diabetic polyneuropathy [place] [place] Overweight documented in this encounter [facility]* Diagnosis Rheumatoid arthritis involving multiple sites, unspecified whether rheumatoid factor present ([facility]) [facility]* Diagnosis Medication monitoring encounter- Primary Encounter for therapeutic drug monitoring Compression fracture of L1 vertebra, sequela Rheumatoid arthritis involving multiple sites, unspecified whether rheumatoid factor present ([facility]) documented in this encounter [facility]* Diagnosis Rheumatoid arthritis involving multiple sites, unspecified whether rheumatoid factor present ([facility])- Primary Status post partial amputation of left foot [place] [place] Diabetic polyneuropathy associated with type 2 diabetes mellitus [place] [place] Severe depression [place] [place] Depressive disorder, not elsewhere classified PAD (peripheral artery disease) [place] [place] Unspecified peripheral vascular disease Compression fracture of L1 vertebra with routine healing, subsequent encounter Mixed hyperlipidemia [facility]* Diagnosis Stage 2 chronic kidney disease due to type 1 diabetes mellitus ([facility])- Primary Rheumatoid arthritis involving multiple sites, unspecified whether rheumatoid factor present ([facility]) 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 [place] [place] Diabetic polyneuropathy associated with type 1 diabetes mellitus [place] [place] Hyperkalemia Hyperpotassemia Compression fracture of L1 vertebra, sequela [facility] Diagnosis Rheumatoid arthritis involving multiple sites with positive rheumatoid factor ([facility]/HCC)- Primary Type I diabetes mellitus with polyneuropathy ([facility]/HCC) Coronary artery disease involving [place] coronary artery of [place] heart without angina pectoris ([facility]/HCC) PAD (peripheral artery disease) ([facility] [facility]) Unspecified peripheral vascular disease POTS (postural orthostatic tachycardia syndrome) Unspecified tachycardia Type 1 diabetes mellitus with other circulatory complications ([facility]/HCC) Type 1 diabetes mellitus with hyperglycemia (HCC) ([facility]) Encounter for long-term (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 medications Encounter for long-term (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 other medications Dyslipidemia ([facility]) Other 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 hyperlipidemia shelter (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 ([facility]) Rheumatoid arthritis involving multiple sites with positive rheumatoid factor ([facility]) [facility] encounter [facility] Diagnosis Rheumatoid arthritis involving multiple sites, unspecified whether rheumatoid factor present ([facility])- Primary Long-term use of Pl[place]en[place] Long-term use of leflunomide therapy [facility] - [facility]* Type Description Date Medical History diabetes mallitus Medical History chronic depression Medical History high blood pressure Medical History high cholesterol Medical History rheumatoid arthritis Surgical History open heart surgery [facility] Other InstructionsNot on filedocumented in this encounter [facility] filedocumented in this encounter [facility]ructionsNot on filedocumented in this encounter [facility]* Attachments The following attachments cannot be sent through Care Everywhere. * Frozen Shoulder Exercises (Canadian) documented in this encounterPro[facility]ica Health SystemInstructionsNot on file documented in this encounterProMedica Health SystemInstructionsNot on file documented in this encounterProMediFoodini Health SystemInstructionsNot on file documented in this encounterProMediFoodini Health SystemInstructionsNot on file documented in this encounterProMedica Health SystemInstructionsNot on file documented in this encounterProMediFoodini Health SystemInstructionsNot on file documented in this encounterProMediIsotera SystemInstructionsNot on file documented in this encounterProMedica Health SystemReason for referral (narrative)* Consultation (Routine) - Authorized Specialty Diagnoses / Procedures Referred By Contac t Referred To Contact Rheumatology Diagnoses Rheumatoid arthritis involving multiple sites, unspecified whether rheumatoid factor present [place] [place] Zen Flores DO [address], [place] [address] Collin Saba MD [address] [address] Referral ID Status Reason Start Date Expiration Date Visits Requested Visits Authorized [id number] Authorized Specialty Services Required 04/13/2024 04/13/2025 1 1 [facility] hospital for visit Narrative* Consultation (Routine) - Pending Review Specialty Diagnoses / Procedures Referred By Narendra adams Referred To Contact Rheumatology Diagnoses Rheumatoid arthritis involving multiple sites with positive rheumatoid factor [place] [place] Procedures [place] OFFICE OUTPATIENT VISIT 60-74 MINS HIGH MDM [id number] (SNOMED CT) - AMB REFERRAL TO RHEUMATOLOGY Rudolph Hurt MD [address] [place] [address] Phone: tel: fax: Collin Saba MD [address] [address] Phone: tel: fax: Referral ID Status Reason Start Date Expiration Date V isits Requested Visits Authorized [id number] Pending Review 09/19/2024 03/18/2025 1 1 [facility] Summary Purpose Family History No Family History [...] Records Found Hospital Course Note MR#: [id number] [facility] Pt. Name: Monica Acosta Admitted: 06/30/2020 Discharged: [...] regimen and follow up with the primary tip puncher. HOSPITAL COURSE: The patient is a 59-year-old [...] and content) DATE CREATED AUTHOR 10/15/2020 [facility] DATE CREATED AUTHOR AUTHOR'S ORGANIZ ATION 09/23/2021 [facility] DATE CREATED AUTHOR AUTHOR'S ORGANIZ ATION [facility]/19[facility]2022 [facility] DATE CREATED AUTHOR AUTHOR'S ORGANIZ ATION 04/16/2024 [facility] DATE CREATED AUTHOR AUTHOR'S ORGANIZ ATION 09/22/2024 [facility] DATE CREATED AUTHOR AUTHOR'S ORGANIZ ATION 10/19/2024 [facility] DATE CREATED AUTHOR AUTHOR'S ORGANIZ ATION 11/21/2024 [facility] REASON FOR VISIT (unrecogniz ed section and content) Reason Comments Diabetes Mellitus Follow-up Reason Comments Follow-up New patient Reason Onset Date Comments Med Refill 08/30/2023 Reason Onset Date Comments Med Refill 12/26/2023 Reason Onset Date Comments Med Refill 09/12/2023 Reason Onset Date Comments Med Refill 10/19/2024 Reason Comments Follow-up [facility] Reason Onset Date Comments Med Refill 01/26/2024 Reason Onset Date Comments Med Refill 10/04/2023 Reason Onset Date Comments Med Refill 10/16/2023 Reason Onset Date Comments Med Refill 02/27/2024 Reason Onset Date Comments Med Refill 10/31/2023 Reason Comments Med Refill Reason Onset Date Comments Med Refill 11/14/2023 Reason Comments Controlled Substance Reason Onset Date Comments Med Refill 03/27/2024 Reason Comments controlled sub Reason Comments Discuss Pain Options Reason Onset Date Comments Med Refill 12/08/2023 Care Teams (unrecognized sec tion and content) Rope Tier Relationship Specialty Start Date End Date Zen Flores MD [address], [place] [address] PCP - General Family Medicine 08/14/24 Rope Tier Relationship Specialty Start Date End Date Zen Flores MD [address], [place] [address] PCP - General Family Medicine 08/14/24 Rope Tier Relationship Specialty Start Date End Date Rudolph Hurt MD [address] [place] [address] PCP - General Family Medicine 09/19/24 Rope Tier Relationship Specialty Start Date End Date Zen Flores MD [address], [place] [address] PCP - General Family Medicine 08/14/24 Rope Tier Relationship Specialty Start Date End Date Zen Flores DO [address] [place] [address] PCP - General Family Medicine 09/18/19 Rope Tier Relationship Specialty Start Date End Date Zen Flores DO [address], [place] [address] PCP - General Family Medicine 09/18/19 Rope Tier Relationship Specialty Start Date End Date Rudolph Hurt MD [address] [place] [address] PCP - General Family Medicine 09/19/24 Rope Tier Relationship Specialty Start Date End Date SandraZen [address] [place] [address] PCP - General Family Medicine 09/18/19 Rope Tier Relationship Specialty Start Date End Date SandraZen [address], [place] [address] PCP - General Family Medicine 09/18/19 Rope Tier Relationship Specialty Start Date End Date Evelio Floresemanuel Reinoso [address], [place] [address] PCP - General Family Medicine 09/18/19 Rope Tier Relationship Specialty Start Date End Date SandraZen [address], [place] [address] PCP - General Family Medicine 09/18/19 Rope Tier Relationship Specialty Start Date End Date SandraZen [address] [place] [address] PCP - General Family Medicine 09/18/19 Rope Tier Relationship Specialty Start Date End Date Evelio Floresemanuel Reinoso [address] [place] [address] PCP - General Family Medicine 09/18/19 Rope Tier Relationship Specialty Start Date End Date Zen Flores DO [address] [place] [address] PCP - [facility] 09/18/19 Rope Tier Relationship Specialty Start Date End Date Rudolph Hurt MD [address] [place] [address] PCP - [facility] 09/19/24 Rope Tier Relationship Specialty Start Date End Date Rudolph Hurt MD [address] [place] [address] PCP - General Family [facility] 09/21/24 FOR RECORDS PERTAINING TO PATIENTS WHO ARE [...] BE BASED ON THE PRIMARY CLINICAL RECORDS. [employer] [facility]. provides no warranty or guarantee of the accuracy or completeness of information in this document.
== END 2024-11-22 11:58 | disposition home or self-care (01) ==
LOC: WC 11:58
PROVIDERS: PCP Family Medicine; Visit Provider Podiatrist Foot & Ankle Surgery
DX: L89.610 Pressure ulcer of right heel, unstageable (principal); L97.814 Non-pressure chronic ulcer of other part of right lower leg with necrosis of bone
CPT/HCPCS: G0463

== ENCOUNTER 2024-11-30 14:08 | Outpatient (OUT) | payer MEDICARE, MEDICAID, SELFPAY ==
[2024-11-30 15:38] LABS: INR 1.02; Partial Thromboplastin Time 25.1 sec (22.3-36.2); Prothrombin Time 10.8 sec (9.0-11.6)
== END 2024-11-30 14:09 | disposition home or self-care (01) ==
PROVIDERS: PCP Family Medicine; Visit Provider Podiatrist Foot & Ankle Surgery
DX: Z01.812 Encounter for preprocedural laboratory examination (principal); M86.8X6 Other osteomyelitis, lower leg
CPT/HCPCS: 80048; 85610; 85652; 85730; 86140

== ENCOUNTER 2024-12-03 06:40 | Outpatient (OUT) | payer MEDICARE, MEDICAID, SELFPAY ==
--- OUTSIDE RECORDS SUMMARY | 2024-12-03 06:43 | XMS_ITS | CCD ---
Author Organization [facility] Care Team Providers Care Online Merchandising Manager Name Role Phone SELF, REFERRED Referring Unavailable YISEL, ALEXANDER Admitting Unavailable ELGAFRabia CHILANGO K Surgeon Unavailable DIONNE HYATT Attending Unavailable [place] Procedure Practitioner Unavailab le UNKNOWN, PHYSICIAN Primary Care Unavailable SELF, REFERRED Referring Unavailable SELF, REFERRED Primary Care Unavailable ELGAFY, CHILANGO K Attending Unavailable ELGAEVIE CHILANGO K Admitting Unavailable Veronica Mcneill Unavailable RADHA BRANNON Admitting Unavailable RADHA BRANNON Attending Unavailable SANDRA, DR ZEN Reinoso Primary Care Unavailable HIGHLRADHA VASQUEZ Consulting Unavailable REBECCA BRENNAN Consulting Unavailable RADHA BRANNON Admitting Unavailable CLOVIS, RADHA Nogueira Attending Unavailable CHANTALLOKATY, DR ZEN Reinoso Primary Care Unavailable RADHA BRANNON Admitting Unavailable RADHA BRANNON Attending Unavailable FURLOKATY, DR ZEN Reinoso Primary Care Unavailable FURLONG, [...] FURLONG, DR ZEN Reinoso Primary Care Unavailable CHEROKEE, DR ANN García Consulting Unavailable HIGHLANDER, RADHA [...] Consulting Unavailable FAFREDERIC, H Consulting Unavailable VAZQUEZ Pedroza, GIAN LUJAN Consulting Unavailable SOLA STEVE Consulting Unavailable HERRERA NOLAN Consulting Unavailable FURLONG, DR ZEN Reinoso Primary Care Unavailable ALESSANDRO, DR HENRY Consulting Unavailable JEROMY, DR NAOMIE Dalton Admitting Unavailable PINZON, DR NAOMIE Dalton Attending Unavailable PINZON, DR NAOMIE Dalton Consulting Unavailable ZIEBER, DR RICHARD Sidhu Consulting Unavailable HIGHLANDER, RADHA Nogueira Consulting Unavailable SILVINA ARAUJO Consulting Unavailable AYYAGARI, BRENDA Consulting Unavailable MCCRICHARD GUAMAN Consulting Unavailable MIKHAIL, DANNY Consulting Unavailable HIGHLRADHA VASQUEZ Admitting Unavailable HIGHLCHRISTINA, RADHA Nogueira Attending Unavailable FURDONATO, DR ZEN Reinoso Primary Care Unavailable HIGHLANDER, RADHA Nogueira Consulting Unavailable FURLONG, DR ZEN Reinoso Admitting Unavailable FURLONG, DR ZEN Reinoso Attending Unavailable FURLONG, DR ZEN Reinoso Primary Care Unavailable HIGHLANDER, RADHA Nogueira Admitting Unavailable HIGHLANDER, RADHA Nogueira Attending Unavailable FURLONG, DR ZEN Reinoso Primary Care Unavailable ZIEBER, DR RICHARD Sidhu Consulting Unavailable HIGHLANDERRADHA Consulting Unavailable FURLONG, DR ZEN Renioso Primary Care Unavailable FAWWAD, CAMPBELL H Admitting Unavailable AMID, CAMPBELL H Attending Unavailable SCHUYLER, DR JAMES Reinoso Consulting UnavailPADMINI Allison Consulting Unavailable NORA NARAYAN Consulting Unavailable FAWWAD, CAMPBELL H Consulting Unavailable SARAH SOLIS Consulting Unavailable ANN PEREA Consulting Unavailable MIKHAIL, DANNY Consulting Unavailable HIGHLRADHA VASQUEZ Admitting Unavailable HIGHLANDER, RADHA Nogueira Attending Unavailable FURLONG, DR ZEN Reinoso Primary Care Unavailable DEMETRA PORTER Attending Unavailable FURLONGZEN Referring Unavailable FURLONGZEN Primary Care Unavailable FURLONGZEN Attending Unavailable FURLONGZEN Referring Unavailable FURLONG, ZEN Reinoso Primary Care Unavailable FURLONG, ZEN Reinoso Attending Unavailable FURLONG, ZEN G Referring Unavailable FURLONG, ZEN G Primary Care Unavailable FURLONG, ZEN G Attending Unavailable FURLONG, ZEN G Referring Unavailable FURLONG, ZEN G Primary Care Unavailable FURLONG, ZEN G Attending Unavailable FURLONG, ZEN G Referring Unavailable FURLONG, ZEN G Primary Care Unavailable Furlong Zen SHAVER Primary Care Provider [phone] Rudolph Hurt MD Primary Care Provider RUDOLPH HURT Attending Unavailable ZEYAD TATE Attending Unavailable ZEYAD TATE F Referring Unavailable Furlong DO, Zen Reinoso Primary Care Provider Rudolph Hurt MD Primary Care Provider DEMETRA PORTER Referring Unavailable FURLONG, ZEN G Primary Care Unavailable FURLONG, ZEN G Referring Unavailable FURLONG, ZEN G Primary Care Unavailable FURLONG, ZEN G Referring Unavailable FURLONG, ZEN G Primary Care Unavailable FURLONG, ZEN G Referring Unavailable FURLONG, ZEN G Primary Care Unavailable RIGO, COLLIN Attending Unavailable RUDOLPH HURT Referring Unavailable RUDOLPH HURT Primary Care Unavailable MACIE SABAADER Referring Unavailable RUDOLPH HURT Primary Care Unavailable RIGO, COLLIN Referring Unavailable RUDOLPH HURT Primary Care Unavailable TY COREA Attending Unavailable JULIO CESAR GARDNER Referring Unavailable NUNU HI Admitting Unavailable DONNA WONG Attending Unavailable STEENHOFF, ISIDRO Referring Unavailable SHENDGE, VITHAL Attending Unavailable SHENDGE, VITHAL Attending Unavailable SHENDGE, VITHAL Referring Unavailable SHENDGE, VITHAL Referring Unavailable SHENDGE, VITHAL Attending Unavailable SHENDGE, VITHAL Attending Unavailable STEENHOFF, ISIDRO Referring Unavailable PEREZ BROOKE Referring Unavailable SHENDGE, VITHAL Referring Unavailable ANA, BROOKE Referring Unavailable SHENDGE, VITHAL Referring Unavailable ANTONIO SEAY Referring Unavailable AUTUMN SCHWARZ Referring Unavailable CORTNEY HOLDEN Referring Unavailable SHENDGE, VITHAL Attending Unavailable SHENDGE, VITHAL Referring Unavailable SHENDGE, VITHAL Referring Unavailable SHENDGE, VITHAL Referring Unavailable SHENDGE, VITHAL Referring Unavailable STEENHOFF, ISIDRO Referring Unavailable Allergies Allergy Classification Reported Allergen(s) Allergy Type Date of Onset Reaction(s) Facility (1 source) Adhesive Tape Drug allergy (disorder) 0 [facility] (7 sources) Amino Acids; Translations: [LISINOPRIL] Drug Allergy 0 [facility] (1 source) Bee/Wasp/Ant venom; Translations: [Bee/Wasp Stings] Propensity to adverse reactions (disorder) 0 [facility] (6 sources) Codeine; Translations: [CODEINE] Drug Allergy 0 [facility] (6 sources) Morphine; Translations: [MORPHINE] Drug Allergy 0 [facility] (2 sources) bee venom Drug allergy (disorder) [facility] (4 sources) cilostazol; Translations: [CILOSTAZOL] Drug Allergy 0 [facility] (2 sources) Desonide Drug Allergy [facility] (4 sources) HYDROmorphone; Translations: [HYDROMORPHONE] Drug Allergy 0 [facility] (1 source) icosapent ethyl Drug Allergy [facility] (20 sources) Adhesive agent; Translations: [...] Drug Allergy 0 Other [facility] (9 sources) Honey bee venom Propensity to adverse reactions 1 [facility] (20 sources) HYDROmorphone Drug Allergy 0 [facility] (9 sources) Lisinopril Allergy to substance 0 Other [facility] (20 sources) Morphine Drug Allergy 0 Other [facility] (9 sources) Wound Dressing Adhesive Drug Intolerance 1 [facility] (20 sources) cilostazol [facility] Lisinopril Drug Allergy 0 Rash [facility] Medications Current Medications Medication Drug Class(es) Dates Sig (Normalized) Sig (Original) acetaminophen 325 mg / HYDROcodone bitartrate 5 mg oral tablet (20 sources) Opioid Agonist Start: 11-12-2024 End: 11-19-2024 take 1 tablet by mouth four times daily as needed for pain HYDROcodone-aceta minophen (Antonito) 5-325 MG tablet Indications: Rheumatoid arthritis involving multiple sites with positive rheumatoid factor (CMS/HCC) Take 1 tablet by mouth 4 (four) times a day as needed for severe pain for up to 7 days 28 tablet 11/12/2024 11/19/2024 Active Start: 10-19-2024 End: 10-26-2024 take 1 tablet by mouth four times daily as needed for pain HYDROcodone-acetaminophen (Antonito) 5-325 MG tablet Indications: Rheumatoid arthritis involving multiple sites with positive rheumatoid factor (CMS/HCC) Take 1 tablet by mouth 4 (four) times a day as needed for severe pain for up to 7 days 28 tablet 10/19/2024 10/26/2024 Active Start: 09-19-2024 End: 09-26-2024 take 1 tablet by mouth four times daily as needed for pain HYDROcodone-acetaminophen (Antonito) 5-325 MG tablet Indications: Rheumatoid arthritis involving [...] multiple sites, unspecified whether rheumatoid factor present ([facility]) Take 1 tablet by mouth 2 [...] MG tablet 09/19/2024 Discontinued HYDROcodone-Acet aminophen Active [id number] 200 actuat albuterol 0.09 mg/actuat metered dose [...] (Patient Stopped On Own) aspirin 81 mg delayed release oral tablet (20 sources) Platelet Aggregation Inhibitor, Nonsteroidal Anti-inflammatory Drug take 1 tablet by mouth in the morning aspirin 81 MG EC tablet Take 81 mg by mouth in the morning. Active take 81 mg by mouth once daily B SATHISH ASPIRIN ORAL Take 81 mg by mouth daily. Active atenolol 50 mg oral tablet (20 [...] oral capsule (6 sources) Atypical Antipsychotic End: 09-19-19 Cariprazine HCl (Vraylar) 1.5 MG capsule Take by mouth 09/19/2024 Discontinued celecoxib 200 mg oral capsule (20 sources) Nonsteroidal Anti-inflammatory Drug Start: 09-19-19 25 take 1 capsule by mouth in the morning celecoxib (CeleBREX) 200 MG capsule Indications: Rheumatoid arthritis involving multiple sites with positive rheumatoid factor (CMS/HCC) Take 1 capsule (200 mg) by mouth in the morning and 1 capsule (200 mg) before bedtime. 60 capsule 3 09/19/2024 Active Start: 08-18-2023 End: 03-20-2024 take 1 capsule by mouth in the morning celecoxib (CeleBREX) 200 MG capsule Indications: Rheumatoid arthritis involving multiple sites with positive rheumatoid factor (CMS/HCC) Take 1 capsule (200 mg) by mouth in the morning and 1 capsule (200 mg) before bedtime. 60 capsule 3 09/19/2024 Active cholecalciferol 0.125 mg ora l tablet (20 sources) Vitamin D cholecalciferol, vitamin [...] (5,000 unit) tablet 0 Active Continuous Glucose Seal Mixing Operator (FreeStyle Tru 14 Day [place]) device (6 sources) End: 09-19-2024 Continuous Glucose Seal Mixing Operator (FreeStyle Tru 14 Day [place]) device 09/19/2024 Discontinued Continuous Gluco se Seal Mixing Operator (FreeStyle Tru 14 Day [place]) device Active Continuous Glucose Sensor (FreeStyle Tru [...] mg by mouth Daily 09/19/2024 Discontinued DULoxetine 60 mg delayed release oral capsule (20 sources) [...] (Error) folic acid 1 mg oral tablet (6 sources) Start: 09-19-2024 take 1 tablet by mouth once daily folic acid (Folvite) 1 MG tablet Indications: Rheumatoid arthritis involving multiple sites with positive rheumatoid factor (CMS/HCC) Take 1 tablet (1 mg) by mouth Daily 30 tablet 5 09/19/2024 Active Folic Acid Activ e FreeStyle Tru 14 Day Sensor (1 source) FreeStyle Tru 14 Day Sensor Active gabapentin 100 mg oral capsule (13 sources) Anti-epileptic Agent Start: 2023 take 1 [...] as directed Daily 60 mL 1 08/21/2024 Active End: 08-21-2024 insulin aspart (NovoLOG, Jodee sp) 100 UNIT/ML patient supplied pump Inject under the skin continuously Active insulin aspart U -100 (NovoLOG) 100 unit/mL injection Novolog U-100 Insulin aspart 100 unit/mL subcutaneous solution Active insulin aspart U -100 (NovoLOG) 100 unit/mL injection Novolog U-100 Insulin aspart 100 unit/mL subcutaneous solution 0 Active NovoLOG Active leflunomide 20 mg oral tablet (8 sources) Antirheumatic Agent Start: 11-19-2024 take 1 tablet by mouth in the morning leflunomide (ARAVA) 20 mg tablet Indications: Rheumatoid arthritis involving multiple sites, unspecified whether rheumatoid factor present (CMS-HCC) Take 1 tablet (20 mg total) by mouth in the morning. 30 tablet 5 11/19/2024 Active End: 09-19-2024 take 1 tablet by mouth once daily leflunomide (Arava) 20 MG tablet Take 20 mg by mouth Daily 09/19/2024 Discontinued Leflunomide Acti ve levothyroxine sodium 0.075 mg oral tablet (5 sources) l-Thyroxine Start: 09-24-2024 take 1 tablet [...] meals. Active methocarbamol 500 mg oral tablet (5 sources) Muscle Relaxant Start: 09-24-2024 take 1 [...] 05/01/2024 Active methotrexate 2.5 mg oral tablet (5 sources) Folate Analog Metabolic Inhibitor Start: 09-19-2024 [...] disease (20 sources) Atherosclerotic heart disease of [place] coronary artery without angina pectoris; Translations: [Coronary arteriosclerosis] Onset: 08-16-2019 09-19-2024 Chronic Coronary atherosclerosis and other heart disease (4 sources) Presence of aortocoronary bypass graft; Translations: [...] 05-21-2022 Chronic Genitourinary symptoms and ill-defined conditions (20 [...] [VOMITING UNSPECIFIED] Onset: 08-18-2022 Episodic Nutritional deficiencies (11 sources) Vitamin D deficiency; Translations: [Vitamin D deficiency, unspecified] Onset: 07-18-2024 07-18-2024 Chronic Osteoarthritis (20 sources) Unspecified osteoarthritis, unspecified site; Translations: [Primary osteoarthritis, right ankle and foot] Onset: 05-13-2022 Chronic Osteoporosis (20 sources) Age-related osteoporosis without current pathological fracture; Translations: [Senile osteoporosis] Onset: 09-18-2019 09-18-2019 Chronic Other acquired deformities (1 source) Contracture, left ankle; Translations: [CONTRACTURE LEFT ANKLE] Onset: 03-22-2022 Chronic Other aftercare (1 source) 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; 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] Onset: 10-19-2022 Episodic Other aftercare (2 sources) Other detention (current) drug therapy; Translations: [OTH SENIOR CARE CURRENT DRUG THERAPY] Onset: 10-19-2022 Episodic Other aftercare (1 source) [facility] (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 aspirin; Translations: [SENIOR CARE 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 ASPIRIN] Onset: 08-18-2022 Episodic Other aftercare (7 sources) Long-term current use of drug therapy; Translations: [Other detention (current) drug therapy] Onset: 09-19-2024 09-19-2024 Episodic Other aftercare (1 source) Drug therapy finding; Translations: [Other detention (current) drug therapy] 11-19-2024 Episodic Other aftercare (2 sources) Long-term current use of leflunomide; Translations: [Other detention (current) drug therapy] Onset: 11-19-2024 11-19-2024 Episodic Other bone disease and musculoskeletal deformities (1 source) Acquired absence of left foot; Translations: [Acquired absence of left foot] Onset: 12-05-2023 Chronic Other bone disease and musculoskeletal deformities (20 sources) History of amputation of left foot; Translations: [Acquired absence of left foot] Onset: 12-05-2023 12-05-2023 Chronic Other circulatory disease (2 sources) Postural orthostatic tachycardia syndrome ; Translations: [Postural orthostatic tachycardia syndrome (POTS)] Onset: 11-30-2024 Episodic Other gastrointestinal disorders (1 source) Diarrhea, unspecified; Translations: [DIARRHEA UNSPECIFIED] Onset: 08-18-2022 Episodic Other lower respiratory disease (1 source) Personal history of pneumonia (recurrent); Translations: [PERSONAL HX OF PNEUMONIA RECURRENT] Onset: 08-18-2022 Episodic Other lower respiratory disease (3 sources) Shortness of breath; Translations: [SHORTNESS OF BREATH] Onset: 05-04-2022 Episodic Peripheral and visceral atherosclerosis (20 sources) [...] Onset: 03-18-2022 Episodic Diabetes mellitus without complication (12 sources) Presence of insulin pump (external) (internal); Translations: [Insulin pump present] Onset: 10-19-2022 07-18-2024 Episodic E Codes: Fall (3 sources) Unspecified fall, initial encounter; Translations: [UNSPECIFIED FALL INITIAL ENCOUNTER] Onset: 05-20-2022 Episodic Essential hypertension (20 sources) Essential (primary) hypertension; Translations: [Essential hypertension] Onset: 08-16-2019 Resolved: 09-19-2024 07-18-2024 Chronic Fluid and electrolyte disorders (2 sources) Dehydration; Translations: [Hyperkalemia] Onset: 11-05-2021 04-13-2024 Episodic Fracture of lower limb (4 sources) Unspecified fracture of shaft of right tibia, initial encounter for open fracture type I or II; Translations: [Unspecified fracture of shaft of right fibula, initial encounter for open fracture type I or II] Onset: 04-21-2024 Episodic Fracture of lower limb (4 sources) Unspecified fracture of shaft of left tibia, initial encounter for closed fracture; Translations: [Unspecified fracture of shaft of left fibula, initial encounter for closed fracture] Onset: 04-21-2024 Episodic Genitourinary symptoms and ill-defined conditions (3 [...] level monitoring] Onset: 03-26-2024 Episodic Other aftercare (13 sources) Patient encounter status; Translations: [Dietary counseling and surveillance] Onset: 07-18-2024 Resolved: 09-19-2024 07-18-2024 Episodic Other aftercare (13 sources) Long-term current use of insulin; Translations: [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] Onset: 07-18-2024 07-18-2024 [...] HEAD INITIAL ENC] Onset: 05-19-2022 Episodic Other non-traumatic joint disorders (1 source) [...] Test Name Value Interpretation Reference Range Facility [facility] APTTon 11-30-2024 aPTT Coag (Bld) [Time] 25.1 s [facility] No Panel Informationon 11-30 [facility] SRMCOH PROTHROMBIN TIME INR W/O COUMon 11-30-2024 PT Coag (PPP) [Time] 10.8 s [facility] TB INR 1.02 [facility] Comment on above: DESIRED INR: 2.0-3.0 CONDITIONS NOT LISTED BELOW 2.5-3.5 FOR PROSTHETIC HEART VALVE REPLACEMENT 2.5-3.5 RECURRENT THROMBOSIS XR OSSEOUS SURVEY LIMITEDon 11-20-2024 XR OSSEOUS SURVEY LIMITED XR OSSEOUS SURVEY LIMITED XR OSSEOUS SURVEY LIMITED Rheumatoid arthritis involving multiple sites, unspecified whether rheumatoid factor present [place] Findings: There is grossly no fracture or [...] Ames MD on 11/20/2024 7:53 AM Normal [facility] CBC AND AUTO DIFFon 11-20-19 25 ABSOLUTE BASOPHIL 0.1 X10E9/L Normal 0.0-0.2 [facility] Comment on above: Performed By: #### 2 4331-1, 3016-3 #### [facility] ([id number]) [address], [address] [place] [address] ABSOLUTE NEUTROPHIL 5.8 X10E9/L Normal 1.5-6.6 [facility] Comment on above: Performed By: #### 2 4331-1, 3016-3 #### [facility] ([id number]) [address], [address] [place] [address] Basophils/100 WBC (Bld) 1.5 % Normal [facility] Comment on above: Performed By: #### 2 4331-1, 3016-3 #### [facility] ([id number]) [address], [address] [place] [address] Eosinophils (Bld) [#/Vol] 0.3 10*3/uL Normal 0.0-0.4 [facility] Comment on above: Performed By: #### 2 4331-1, 3016-3 #### [facility] ([id number]) [address], [address] [place] [address] Eosinophils/100 WBC (Bld) 3.6 % Normal [facility] Comment on above: Performed By: #### 2 4331-1, 3016-3 #### [facility] ([id number]) [address], [facility] [address] [place] [address] Erythrocyte distribution width (RBC) [Ratio] 19.0 % High 11.5-15.0 [facility] Comment on above: Performed By: #### 2 4331-1, 3015-3 #### [facility] ([id number]) [address], [facility] [address] [place] [address] Hematocrit (Bld) [Volume fraction] 43.6 % Normal 35-47 [facility] Comment on above: Performed By: #### 2 4331-1, 3015-3 #### [facility] ([id number]) [address], [facility] [address] [place] [address] Hemoglobin (Bld) [Mass/Vol] 14.6 g/dL Normal 11.7-15.5 [facility] Comment on above: Performed By: #### 2 4331-1, 3015-3 #### [facility] ([id number]) [address] [address] [place] [address] Lymphocytes (Bld) [#/Vol] 1.1 10*3/uL Normal 1.0-3.5 [facility] Comment on above: Performed By: #### 2 4331-1, 3015-3 #### [facility] ([id number]) [address] [address] [place] [address] Lymphocytes/100 WBC (Bld) 14.2 % Normal [facility] Comment on above: Performed By: #### 2 4331-1, 3015-3 #### [facility] ([id number]) [address] [address] [place] [address] MCH (RBC) [Entitic mass] 29.8 pg Normal 27-34 [facility] Comment on above: Performed By: #### 2 4331-1, 3015-3 #### [facility] ([id number]) [address], [address] [place] [address] MCHC (RBC) [Mass/Vol] 33.5 g/dL Normal 32-36 [facility] Comment on above: Performed By: #### 2 4331-1, 6-3 #### [facility] ([id number]) [address], [address] [place] [address] MCV (RBC) [Entitic vol] 89 fL Normal 80-100 [facility] Comment on above: Performed By: #### 2 4331-1, 6-3 #### [facility] ([id number]) [address], [address] [place] [address] Monocytes (Bld) [#/Vol] 0.5 10*3/uL Normal 0-0.9 [facility] Comment on above: Performed By: #### 2 4331-1, 6-3 #### [facility] ([id number]) [address], [address] [place] [address] Monocytes/100 WBC (Bld) 6.2 % Normal [facility] Comment on above: Performed By: #### 2 4331-1, 6-3 #### [facility] ([id number]) [address], [address] [place] [address] Neutrophils/100 WBC (Bld) 74.5 % Normal [facility] Comment on above: Performed By: #### 2 4331-1, 6-3 #### [facility] ([id number]) [address], [address] [place] [address] Platelet mean volume (Bld) [Entitic vol] 9.6 fL Normal 7-12 [facility] Comment on above: Performed By: #### 2 4331-1, 6-3 #### [facility] ([id number]) [address], [address] [place] [address] Platelets (Bld) [#/Vol] 262 10*3/uL Normal 150-450 [facility] Comment on above: Performed By: #### 2 4331-1, 3016-3 #### [facility] ([id number]) [address], [address] [place] [address] RBC COUNT 4.89 X10E12/L Normal 3.80-5.20 [facility] Comment on above: Performed By: #### 2 4331-1, 6-3 #### [facility] ([id number]) [address], [address] [place] [address] WBC (Bld) [#/Vol] 7.8 10*3/uL Normal 4.0-11.0 [facility] Comment on above: Performed By: #### 2 4331-1, 3015-3 #### [facility] ([id number]) [address], [address] [place] [address] COMPREHENSIVE METABOLIC PANE Neftali 11-19-2024 Albumin [Mass/Vol] 4.1 g/dL Normal 3.2-5.3 [facility] Comment on above: Performed By: #### 1 5205-8, 3016-3, CMP, 1988-01, CBCA, 2132-05, 75501-7, 01113-4, 77208-6 #### [facility] ([id number]) [address], [address] [place] [address] ALP [Catalytic activity/Vol] 154 U/L High 39-130 [facility] Comment on above: Performed By: #### 1 5205-8, 3016-3, CMP, 1988-01, CBCA, 2132-05, 68175-8, 12580-0, 40178-3 #### [facility] ([id number]) [address], [address] [place] [address] ALT [Catalytic activity/Vol] 19 U/L Normal 0-31 [facility] Comment on above: Performed By: #### 1 5-8, 6-3, CMP, 1988-01, CBCA, 9, 43877-8, 54082-0, 58254-4 #### [facility] ([id number]) [address], [address] [place] [address] Anion gap [Moles/Vol] 12 mmol/L Normal 5-15 [facility] Comment on above: Performed By: #### 1 5204-8, 3015-3, CMP, 1988-01, CBCA, 2132-05, 62381-1, 49932-9, 87819-4 #### [facility] ([id number]) [address], [address] [place] [address] AST [Catalytic activity/Vol] 28 U/L Normal 0-41 [facility] Comment on above: Performed By: #### 1 5204-8, 3015-3, CMP, 1988-01, CBCA, 2132-05, 02806-8, 92294-1, 79434-8 #### [facility] ([id number]) [address], [address] [place] [address] Bilirubin [Mass/Vol] 0.4 mg/dL Normal 0.3-1.2 [facility] Comment on above: Performed By: #### 1 5204-8, 3015-3, CMP, 1988-01, CBCA, 2132-05, 84647-4, 85521-3, 19520-6 #### [facility] ([id number]) [address], [address] [place] [address] Calcium [Mass/Vol] 10.1 mg/dL Normal 8.5-10.5 [facility] Comment on above: Performed By: #### 1 5-8, 3015-3, CMP, 1988-01, CBCA, 9, 95464-9, 87073-3, 22462-5 #### [facility] ([id number]) [address], [address] [place] [address] Chloride [Moles/Vol] 99 mmol/L Normal 98-109 [facility] Comment on above: Performed By: #### 1 5-8, 6-3, CMP, 1988-01, CBCA, 2132-05, 21974-2, 07034-7, 54885-2 #### [facility] ([id number]) [address], [address] [place] [address] CO2 [Moles/Vol] 24 mmol/L Normal 22-32 [facility] Comment on above: Performed By: #### 1 5204-8, 3015-3, CMP, 1988-01, CBCA, 2132-05, 83392-8, 77913-9, 40951-7 #### [facility] ([id number]) [address], [address] [place] [address] Creatinine [Mass/Vol] 1.24 mg/dL High 0.40-1.00 [facility] Comment on above: Result Comment: METH OD TRACEABLE TO IDMS STANDARD Performed By: #### 1 5204-8, 3015-3, [facility], 1988-01, CBCA, 2132-05, 92395-1, 22153-5, 59299-2 #### [facility] ([id number]) [address], [address] [place] [address] GFR/1.73 sq M.predicted among non-blacks MDRD (S/P/Bld) [Vol rate/Area] 49 mL/min/{1.73_m2} Low >59 [facility] Comment on above: Result Comment: Reported eGFR is based on the CKD-EPI 2020 equation that does not use a race coefficient. Performed By: #### 1 5-8, 6-3, CMP, 1988-01, CBCA, 2132-05, 83104-5, 43793-4, 10546-9 #### [facility] ([id number]) [address], [address] [place] [address] Glucose [Mass/Vol] 189 mg/dL High 65-99 [facility] Comment on above: Performed By: #### 1 5-8, 6-3, CMP, 1988-01, CBCA, 2132-05, 94569-0, 00147-6, 17126-9 #### [facility] ([id number]) [address], [address] [place] [address] Potassium [Moles/Vol] 5.0 mmol/L Normal 3.5-5.0 [facility] Comment on above: Performed By: #### 1 5204-8, 3015-3, CMP, 1988-01, CBCA, 2132-05, 68948-4, 33179-1, 87960-0 #### [facility] ([id number]) [address], [address] [place] [address] Protein [Mass/Vol] 7.9 g/dL Normal 6.0-8.0 [facility] Comment on above: Performed By: #### 1 5204-8, 3015-3, CMP, 1988-01, CBCA, 2132-05, 34705-5, 13214-7, 57950-0 #### [facility] ([id number]) [address], [address] [place] [address] Sodium [Moles/Vol] 135 mmol/L Normal 134-146 [facility] Comment on above: Performed By: #### 1 5-8, 3015-3, CMP, 1988-01, CBCA, 2132-05, 34839-3, 82695-9, 61351-5 #### [facility] ([id number]) [address], [address] [place] [address] Urea nitrogen [Mass/Vol] 25 mg/dL Normal 5-27 [facility] Comment on above: Performed By: #### 1 5-8, 6-3, CMP, 1988-01, CBCA, 2132-05, 54579-0, 82075-2, 57241-1 #### [facility] ([id number]) [address], [address] [place] [address] CRP [Mass/Vol]on 11-19-2024 C REACTIVE PROTEIN 0.5 mg/dL Normal 0.000-0.744 [facility] Comment on above: Performed By: #### 2 4331-1, 6-3 #### [facility] ([id number]) [address] [place] [address] ESR Photometric method (Bld) [Velocity]on 11-19-2024 ESR, ERYTHROCYTE SEDIMENTATION RATE 29 mm/h Normal 0-30 [facility] Comment on above: Performed By: #### 2 4331-1, 6-3 #### [facility] ([id number]) [address] [place] [address] Rheumatoid factor Nephelomet ry Qn (S)on 11-19-2024 RHEUMATOID FACTOR 54 IU/mL High <20 [facility] Comment on above: Performed By: #### 1 5205-8, 6-3, CMP, 1988-01, CBCA, 2132-05, 81677-5, 05781-4, 67302-7 #### [facility] ([id number]) [address], [address] [place] [address] TSH Qnon 11-19-2024 TSH 3.01 uIU/mL Normal 0.49-4.67 [facility] Comment on above: Performed By: #### 1 5205-8, 3016-3, CMP, 1988-01, CBCA, 2132-05, 10723-7, 80653-8, 91117-1 #### [facility] ([id number]) [address] [address] [place] [address] VITAMIN B12on 11-19-2024 Cobalamin (Vitamin B12) [Mass/Vol] 279 pg/mL Normal 180-914 [facility] Comment on above: Performed By: #### 2 4331-1, 3016-3 #### [facility] ([id number]) [address], [address] [place] [address] Vitamin D+Metabolites [Mass/ Vol]on 11-19-2024 VITAMIN D 25 HYD TOT 55.1 ng/mL Normal 30-100 [facility] Comment on above: Result Comment: Vitamin D status 25 [place] Vitamin D Deficiency <20 ng/mL Insufficiency 20-29 ng/mL Sufficiency 30-100 ng/mL Toxicity >100 ng/mL NOTE: A pediatric reference range has not been established by the metal expediter of this kit. The [place] [employer] recommends a Vitamin D level of = or >20ng/mL in infants and children. Performed By: #### 2 4331-1, 3016-3 #### [facility] ([id number]) [address] [place] [address] XR CHEST 2 VWSon 11-19-2024 XR CHEST 2 VWS XR CHEST 2 VWS EXAM: XR CHEST 2 VWS CLINICAL INFORMATION: Rheumatoid arthritis involving multiple sites, unspecified whether rheumatoid factor present ([facility] COMPARISON: None. FINDINGS: There are low [...] Fernando Brenner MD on 11/19/2024 6:46 PM Normal [facility] Follow-Upon 10-15-2024 Follow-Up [facility] Glucose (Bld) [Mass/Vol]Orde red By: Meenakshi Heck on 08-21-2024 Glucose Blood, POC 100 mg/dL [facility] - Hematology and Cell countson 08-21-2024 HbA1c (Bld) [Mass fraction] 7.5 % [facility] No Panel InformationOrdered By: Meenakshi Heck on 08-21-2024 [facility] Follow-Upon 08-13-2024 Follow-Up [facility] 36on 05-15-2024 36 Looks like patient told Dr Shipman was already taking these medications. Dr shipman did not prescribe patient anything. She will need to contact pcp office. [facility] 36 Kady from [place] called for clarification on calcium and vit D3 order from , [place] does not currently have an order for calcium and vit D3 for patient, please fax clarification to Fax:[phone] [facility] 36on 05-08-2024 36 [facility] 36 [facility] Telephoneon 05-08-2024 Telephone [facility] 30on 05-01-2024 30 [facility] 30 [facility] BASIC METABOLIC PANELon 04-06 Anion gap [Moles/Vol] 10 mmol/L Normal 7-20 [facility] Comment on above: Performed By: #### L [id number] ####[facility] ([facility])[address] [place] [address] Calcium [Mass/Vol] 9.1 mg/dL Normal 8.6-10.3 [facility] Comment on above: Performed By: #### L [id number] ####[facility] ([facility])[address] [facility] [place] [address] Chloride [Moles/Vol] 95 mmol/L Low 98-107 [facility] Comment on above: Performed By: #### L [id number] ####[facility] ([facility])[address] [facility] [place] [address] CO2 [Moles/Vol] 32 mmol/L High 21-31 [facility] Comment on above: Performed By: #### L [id number] ####[facility] ([facility])[address] [place] [address] Creatinine [Mass/Vol] 0.76 mg/dL Normal 0.60-1.20 [facility] Comment on above: Performed By: #### L [id number] ####[facility] ([facility])[address] [place] [address] GLOMERULAR FILTRATION RATE ML/MIN/1.73 SQ M.PREDICTED 87.4 mL/min/1.73m*2 Normal >60.0 [facility] Comment on above: Result Comment: [facility]???s estimated glomerular filtration rate (eGFR) will [...] of individuals. Performed By: #### L [id number] ####[facility] ([facility])[address] [place] [address] Glucose [Mass/Vol] 102 mg/dL High 70-100 [facility] Comment on above: Performed By: #### L [id number] ####[facility] ([facility])[address] [place] [address] Potassium [Moles/Vol] 4.4 mmol/L Normal 3.5-5.1 [facility] Comment on above: Performed By: #### L [id number] ####[facility] ([facility])[address] [place] [address] Sodium [Moles/Vol] 133 mmol/L Low 136-145 [facility] Comment on above: Performed By: #### L [id number] ####[facility] ([facility])[address] [place] [address] Urea nitrogen [Mass/Vol] 23 mg/dL Normal 7-25 [facility] Comment on above: Performed By: #### L [id number] ####[facility] [place] [address] UREA NITROGEN/CREATININE (MASS RATIO) IN SER/PLAS 30.3 Normal [facility] Comment on above: Performed By: #### L [id number] ####[facility] [place] [address] CBCon 05-01-2024 Erythrocyte distribution width (RBC) [Ratio] 15.1 % High 11.5-15.0 [facility] Comment on above: Performed By: #### L [id number] ####[facility] ([facility])[address] [place] [address] ERYTHROCYTE MEAN CORPUSCULAR HEMOGLOBIN CONCENTRATION (G/DL) BY AUTOMATED 32.2 g/dL Normal 32.0-35.0 [facility] Comment on above: Performed By: #### L [id number] ####[facility] ([facility] [place] [address] Hematocrit (Bld) [Volume fraction] 35.4 % Low 36.0-48.0 [facility] Comment on above: Performed By: #### L [id number] ####[facility] [place] [address] Hemoglobin (Bld) [Mass/Vol] 11.4 g/dL Low 12.0-15.0 [facility] Comment on above: Performed By: #### L [id number] ####[facility] [place] [address] MCH (RBC) [Entitic mass] 29.8 pg Normal 27.0-33.0 [facility] Comment on above: Performed By: #### L [id number] ####[facility] ([facility])[address] [place] [address] MCV (RBC) [Entitic vol] 92.7 fL Normal 82.0-98.0 [facility] Comment on above: Performed By: #### L [id number] ####[facility] ([facility])[address] [place] [address] PLATELETS (10*3/UL) IN BLOOD AUTOMATED COUNT 425 10*3/uL High 150-400 [facility] Comment on above: Performed By: #### L [id number] ####[facility] ([facility])[address] [facility] [address] RBC (Bld) [#/Vol] 3.82 10*6/uL Normal 3.80-5.00 [facility] Comment on above: Performed By: #### L [id number] ####[facility] ([facility])[address] [place] [address] WBC (Bld) [#/Vol] 9.39 10*3/uL Normal 4.00-10.60 [facility] Comment on above: Performed By: #### L [id number] ####[facility] ([facility])[address] [facility] [address] CONSULTon 05-01-2024 CONSULT 13:25-SW requested transport for patient-await response. 14:40-SW notified [facility] can transport at 3:20pm-SW to make packet. 15:15-SW gave packet to [facility] crew.[id number] completed. OTM will continue to follow. [facility] DSon 05-01-2024 DS Normal [facility] MAGNESIUMon 05-01-2024 Magnesium [Mass/Vol] 1.9 mg/dL Normal 1.9-2.7 [facility] Comment on above: Performed By: #### L [id number] ####[facility] ([facility])[address] [place] [address] NURSNOTEon 05-01-2024 NURSNOTE Training Lead attempted to call [place] for report. Training Lead was on hold for 5 minutes, was not able to leave voicemail. [facility] PHOSPHORUSon 05-01-2024 Magnesium [Mass/Vol] 3.5 mg/dL Normal 2.5-5.0 [facility] Comment on above: Performed By: #### L [id number] ####[facility] ([facility])[address] [place] [address] POCT GLUCOSE METER UNSOLICIT ED RESULTSon 05-01-2024 Glucose [Mass/Vol] 99 mg/dL Normal 70-105 [facility] Comment on above: Order Comment: Waive d Testing in the ED is performed under the ED CLIA certificate #[id number]. Result Comment: [email or web address] Performed By: #### L [id number] ####[facility] [place] [address] Glucose [Mass/Vol] 103 mg/dL Normal 70-105 [facility] Comment on above: Order Comment: Waive d Testing in the ED is performed under the ED CLIA certificate #[id number]. Result Comment: elac umsky Performed By: #### L [id number] ####[facility] ([facility])[address] [place] [address] BASIC METABOLIC PANELon 04-06 Anion gap [Moles/Vol] 11 mmol/L Normal 7-20 [facility] Comment on above: Performed By: #### L [id number] ####[facility] ([facility])[address] [place] [address] Calcium [Mass/Vol] 9.0 mg/dL Normal 8.6-10.3 [facility] Comment on above: Performed By: #### L [id number] ####[facility] ([facility])[address] [place] [address] Chloride [Moles/Vol] 94 mmol/L Low 98-107 [facility] Comment on above: Performed By: #### L [id number] ####[facility] ([facility])[address] [place] [address] CO2 [Moles/Vol] 34 mmol/L High 21-31 [facility] Comment on above: Performed By: #### L [id number] ####[facility] [place] [address] Creatinine [Mass/Vol] 0.78 mg/dL Normal 0.60-1.20 [facility] Comment on above: Performed By: #### L [id number] ####[facility] ([facility])[address] [place] [address] GLOMERULAR FILTRATION RATE ML/MIN/1.73 SQ M.PREDICTED 84.8 mL/min/1.73m*2 Normal >60.0 [facility] Comment on above: Result Comment: [facility]???s estimated glomerular filtration rate (eGFR) will [...] of individuals. Performed By: #### L [id number] ####[facility] ([facility])[address] [place] [address] Glucose [Mass/Vol] 121 mg/dL High 70-100 [facility] Comment on above: Performed By: #### L [id number] ####[facility] ([facility])[address] [place] [address] Potassium [Moles/Vol] 4.4 mmol/L Normal 3.5-5.1 [facility] Comment on above: Performed By: #### L [id number] ####[facility] ([facility])[address] [place] [address] Sodium [Moles/Vol] 135 mmol/L Low 136-145 [facility] Comment on above: Performed By: #### L [id number] ####[facility] ([facility])[address] [place] [address] Urea nitrogen [Mass/Vol] 20 mg/dL Normal 7-25 [facility] Comment on above: Performed By: #### L [id number] ####[facility] ([facility])[address] [place] [address] UREA NITROGEN/CREATININE (MASS RATIO) IN SER/PLAS 25.6 [facility] Comment on above: Performed By: #### L [id number] ####[facility] ([facility])[address] [place] [address] CBCon 04-30-2024 Erythrocyte distribution width (RBC) [Ratio] 14.7 % Normal 11.5-15.0 [facility] Comment on above: Performed By: #### L [id number] ####[facility] ([facility])[address] [place] [address] ERYTHROCYTE MEAN CORPUSCULAR HEMOGLOBIN CONCENTRATION (G/DL) BY AUTOMATED 31.7 g/dL Low 32.0-35.0 [facility] Comment on above: Performed By: #### L [id number] ####[facility] ([facility])[address] [place] [address] Hematocrit (Bld) [Volume fraction] 36.3 % Normal 36.0-48.0 [facility] Comment on above: Performed By: #### L [id number] ####[facility] [place] [address] Hemoglobin (Bld) [Mass/Vol] 11.5 g/dL Low 12.0-15.0 [facility] Comment on above: Performed By: #### L [id number] ####[facility] ([facility] [place] [address] MCH (RBC) [Entitic mass] 30.3 pg Normal 27.0-33.0 [facility] Comment on above: Performed By: #### L [id number] ####[facility] ([facility])[address] [place] [address] MCV (RBC) [Entitic vol] 95.8 fL Normal 82.0-98.0 [facility] Comment on above: Performed By: #### L [id number] ####[facility] ([facility])[address] [place] [address] PLATELETS (10*3/UL) IN BLOOD AUTOMATED COUNT 381 10*3/uL Normal 150-400 [facility] Comment on above: Performed By: #### L [id number] ####[facility] ([facility])[address] [place] [address] RBC (Bld) [#/Vol] 3.79 10*6/uL Low 3.80-5.00 [facility] Comment on above: Performed By: #### L [id number] ####[facility] ([facility])[address] [place] [address] WBC (Bld) [#/Vol] 9.02 10*3/uL Normal 4.00-10.60 [facility] Comment on above: Performed By: #### L [id number] ####[facility] ([facility])[address] [place] [address] MAGNESIUMon 04-30-2024 Magnesium [Mass/Vol] 1.8 mg/dL Low 1.9-2.7 [facility] Comment on above: Performed By: #### L [id number] ####[facility] ([facility])[address] [place] [address] PHOSPHORUSon 04-30-2024 Magnesium [Mass/Vol] 3.2 mg/dL Normal 2.5-5.0 [facility] Comment on above: Performed By: #### L [id number] ####[facility] ([facility])[address] [place] [address] POCT GLUCOSE METER UNSOLICIT ED RESULTSon 04-30-2024 Glucose [Mass/Vol] 160 mg/dL High 70-105 [facility] Comment on above: Order Comment: Waive d Testing in the ED is performed under the ED CLIA certificate #[id number]. Result Comment: saravanan downey Performed By: #### L [id number] ####[facility] ([facility])[address] [place] [address] Glucose [Mass/Vol] 111 mg/dL High 70-105 [facility] Comment on above: Order Comment: Waive d Testing in the ED is performed under the ED CLIA certificate #[id number]. Result Comment: epoo [email or web address] Performed By: #### L [id number] ####[facility] ([facility])[address] [place] [address] Glucose [Mass/Vol] 172 mg/dL High 70-105 [facility] Comment on above: Order Comment: Waive d Testing in the ED is performed under the ED CLIA certificate #[id number]. Result Comment: epoo le6 Performed By: #### L [id number] ####[facility] ([facility])[address] [place] [address] Glucose [Mass/Vol] 160 mg/dL High 70-105 [facility] Comment on above: Order Comment: Waive d Testing in the ED is performed under the ED CLIA certificate #[id number]. Result Comment: epoo [email or web address] Performed By: #### L [id number] ####[facility] ([facility])[address] [place] [address] BASIC METABOLIC PANELon 08-2 Anion gap [Moles/Vol] 10 mmol/L Normal 7-20 [facility] Comment on above: Performed By: #### L [id number] ####[facility] ([facility])[address] [place] [address] Calcium [Mass/Vol] 8.9 mg/dL Normal 8.6-10.3 [facility] Comment on above: Performed By: #### L [id number] ####[facility] ([facility])[address] [place] [address] Chloride [Moles/Vol] 95 mmol/L Low 98-107 [facility] Comment on above: Performed By: #### L [id number] ####[facility] ([facility])[address] [place] [address] CO2 [Moles/Vol] 34 mmol/L High 21-31 [facility] Comment on above: Performed By: #### L [id number] ####[facility] ([facility])[address] [place] [address] Creatinine [Mass/Vol] 0.89 mg/dL Normal 0.60-1.20 [facility] Comment on above: Performed By: #### L [id number] ####[facility] ([facility])[address] [place] [address] GLOMERULAR FILTRATION RATE ML/MIN/1.73 SQ M.PREDICTED 72.4 mL/min/1.73m*2 Normal >60.0 [facility] Comment on above: Result Comment: [facility]???s estimated glomerular filtration rate (eGFR) will [...] of individuals. Performed By: #### L [id number] ####[facility] ([facility])[address] [place] [address] Glucose [Mass/Vol] 173 mg/dL High 70-100 [facility] Comment on above: Performed By: #### L [id number] ####[facility] ([facility])[address] [place] [address] Potassium [Moles/Vol] 4.7 mmol/L Normal 3.5-5.1 [facility] Comment on above: Performed By: #### L [id number] ####[facility] ([facility])[address] [place] [address] Sodium [Moles/Vol] 134 mmol/L Low 136-145 [facility] Comment on above: Performed By: #### L [id number] ####[facility] ([facility])[address] [place] [address] Urea nitrogen [Mass/Vol] 16 mg/dL Normal 7-25 [facility] Comment on above: Performed By: #### L [id number] ####[facility] [place] [address] UREA NITROGEN/CREATININE (MASS RATIO) IN SER/PLAS 18.0 Normal [facility] Comment on above: Performed By: #### L [id number] ####[facility] [place] [address] CBCon 04-29-2024 Erythrocyte distribution width (RBC) [Ratio] 14.6 % Normal 11.5-15.0 [facility] Comment on above: Performed By: #### L [id number] ####[facility] ([facility])[address] [place] [address] ERYTHROCYTE MEAN CORPUSCULAR HEMOGLOBIN CONCENTRATION (G/DL) BY AUTOMATED 31.0 g/dL Low 32.0-35.0 [facility] Comment on above: Performed By: #### L [id number] ####[facility] ([facility] [address] Hematocrit (Bld) [Volume fraction] 33.9 % Low 36.0-48.0 [facility] Comment on above: Performed By: #### L [id number] ####[facility] [address] Hemoglobin (Bld) [Mass/Vol] 10.5 g/dL Low 12.0-15.0 [facility] Comment on above: Performed By: #### L [id number] ####[facility] ([facility])[address] [address] MCH (RBC) [Entitic mass] 30.1 pg Normal 27.0-33.0 [facility] Comment on above: Performed By: #### L [id number] ####[facility] ([facility])[address] [address] MCV (RBC) [Entitic vol] 97.1 fL Normal 82.0-98.0 [facility] Comment on above: Performed By: #### L [id number] ####[facility] ([facility])[address] [place] [address] PLATELETS (10*3/UL) IN BLOOD AUTOMATED COUNT 320 10*3/uL Normal 150-400 [facility] Comment on above: Performed By: #### L [id number] ####[facility] ([facility])[address] [place] [address] RBC (Bld) [#/Vol] 3.49 10*6/uL Low 3.80-5.00 [facility] Comment on above: Performed By: #### L [id number] ####[facility] ([facility])[address] [place] [address] WBC (Bld) [#/Vol] 9.12 10*3/uL Normal 4.00-10.60 [facility] Comment on above: Performed By: #### L [id number] ####[facility] ([facility])[address] [facility] [address] MAGNESIUMon 04-29-2024 Magnesium [Mass/Vol] 1.9 mg/dL Normal 1.9-2.7 [facility] Comment on above: Performed By: #### L [id number] ####[facility] ([facility])[address] [place] [address] NURSNOTEon 04-29-2024 NURSNOTE Normal [facility] PHOSPHORUSon 04-29-2024 Magnesium [Mass/Vol] 3.1 mg/dL Normal 2.5-5.0 [facility] Comment on above: Performed By: #### L [id number] ####[facility] ([facility])[address] [place] [address] POCT GLUCOSE METER UNSOLICIT ED RESULTSon 04-29-2024 Glucose [Mass/Vol] 116 mg/dL High 70-105 [facility] Comment on above: Order Comment: Waive d Testing in the ED is performed under the ED CLIA certificate #[id number]. Result Comment: [email or web address] Performed By: #### L [id number] ####[facility] ([facility])[address] [place] [address] Glucose [Mass/Vol] 153 mg/dL High 70-105 [facility] Comment on above: Order Comment: Waive d Testing in the ED is performed under the ED CLIA certificate #[id number]. Result Comment: [email or web address] [email or web address] Performed By: #### L [id number] ####[facility] ([facility])[address] [place] [address] Glucose [Mass/Vol] 205 mg/dL High 70-105 [facility] Comment on above: Order Comment: Waive d Testing in the ED is performed under the ED CLIA certificate #[id number]. Result Comment: [email or web address] [email or web address] Performed By: #### L [id number] ####[facility] ([facility])[address] [place] [address] Glucose [Mass/Vol] 181 mg/dL High 70-105 [facility] Comment on above: Order Comment: Waive d Testing in the ED is performed under the ED CLIA certificate #[id number]. Result Comment: [email or web address] Performed By: #### L [id number] ####[facility] ([facility])[address] [place] [address] BASIC METABOLIC PANELon 08-2 Anion gap [Moles/Vol] 7 mmol/L Normal 7-20 [facility] Comment on above: Performed By: #### L [id number] ####[facility] ([facility])[address] [place] [address] Calcium [Mass/Vol] 8.2 mg/dL Low 8.6-10.3 [facility] Comment on above: Performed By: #### L [id number] ####[facility] [place] [address] Chloride [Moles/Vol] 98 mmol/L Normal 98-107 [facility] Comment on above: Performed By: #### L [id number] ####[facility] ([facility])[address] [place] [address] CO2 [Moles/Vol] 38 mmol/L High 21-31 [facility] Comment on above: Performed By: #### L [id number] ####[facility] ([facility])[address] [place] [address] Creatinine [Mass/Vol] 0.66 mg/dL Normal 0.60-1.20 [facility] Comment on above: Performed By: #### L [id number] ####[facility] ([facility])[address] [place] [address] GLOMERULAR FILTRATION RATE ML/MIN/1.73 SQ M.PREDICTED 97.9 mL/min/1.73m*2 Normal >60.0 [facility] Comment on above: Result Comment: [facility]???s estimated glomerular filtration rate (eGFR) will [...] of individuals. Performed By: #### L [id number] ####[facility] ([facility])[address] [place] [address] Glucose [Mass/Vol] 65 mg/dL Low 70-100 [facility] Comment on above: Performed By: #### L [id number] ####[facility] [place] [address] Potassium [Moles/Vol] 3.9 mmol/L Normal 3.5-5.1 [facility] Comment on above: Performed By: #### L [id number] ####[facility] ([facility])[address] [place] [address] Sodium [Moles/Vol] 139 mmol/L Normal 136-145 [facility] Comment on above: Performed By: #### L [id number] ####[facility] [place] [address] Urea nitrogen [Mass/Vol] 15 mg/dL Normal 7-25 [facility] Comment on above: Performed By: #### L [id number] ####[facility] ([facility])[address] [place] [address] UREA NITROGEN/CREATININE (MASS RATIO) IN SER/PLAS 22.7 Normal [facility] Comment on above: Performed By: #### L [id number] ####[facility] ([facility])[address] [place] [address] CBCon 04-28-2024 Erythrocyte distribution width (RBC) [Ratio] 14.3 % Normal 11.5-15.0 [facility] Comment on above: Performed By: #### L [id number] ####[facility] [place] [address] ERYTHROCYTE MEAN CORPUSCULAR HEMOGLOBIN CONCENTRATION (G/DL) BY AUTOMATED 32.3 g/dL Normal 32.0-35.0 [facility] Comment on above: Performed By: #### L [id number] ####[facility] [place] [address] Hematocrit (Bld) [Volume fraction] 31.3 % Low 36.0-48.0 [facility] Comment on above: Performed By: #### L [id number] ####[facility] [place] [address] Hemoglobin (Bld) [Mass/Vol] 10.1 g/dL Low 12.0-15.0 [facility] Comment on above: Performed By: #### L [id number] ####[facility] ([facility])[address] [place] [address] MCH (RBC) [Entitic mass] 30.0 pg Normal 27.0-33.0 [facility] Comment on above: Performed By: #### L [id number] ####[facility] ([facility])[address] [place] [address] MCV (RBC) [Entitic vol] 92.9 fL Normal 82.0-98.0 [facility] Comment on above: Performed By: #### L [id number] ####[facility] ([facility])[address] [place] [address] PLATELETS (10*3/UL) IN BLOOD AUTOMATED COUNT 280 10*3/uL Normal 150-400 [facility] Comment on above: Performed By: #### L [id number] ####[facility] ([facility])[address] [place] [address] RBC (Bld) [#/Vol] 3.37 10*6/uL Low 3.80-5.00 [facility] Comment on above: Performed By: #### L [id number] ####[facility] ([facility])[address] [place] [address] WBC (Bld) [#/Vol] 7.00 10*3/uL Normal 4.00-10.60 [facility] Comment on above: Performed By: #### L [id number] ####[facility] ([facility])[address] [place] [address] MAGNESIUMon 04-28-2024 Magnesium [Mass/Vol] 2.2 mg/dL Normal 1.9-2.7 [facility] Comment on above: Performed By: #### L [id number] ####[facility] ([facility])[address] [place] [address] NURSNOTEon 04-28-2024 NURSNOTE 0707: Patients glucose found to be 59. Pt declining glucose tabs, instead ate richie crackers and apple juice. Pt also turned off her insulin pump temporarily. 0830: Pt Glucose recheck is 157. Normal [facility] PHOSPHORUSon 04-28-2024 Magnesium [Mass/Vol] 2.1 mg/dL Low 2.5-5.0 [facility] Comment on above: Performed By: #### L [id number] ####[facility] ([facility])[address] [place] [address] POCT GLUCOSE METER UNSOLICIT ED RESULTSon 04-28-2024 Glucose [Mass/Vol] 206 mg/dL High 70-105 [facility] Comment on above: Order Comment: Waive d Testing in the ED is performed under the ED CLIA certificate #[id number]. Result Comment: [email or web address] Performed By: #### L [id number] ####[facility] ([facility])[address] [place] [address] Glucose [Mass/Vol] 207 mg/dL High 70-105 [facility] Comment on above: Order Comment: Waive d Testing in the ED is performed under the ED CLIA certificate #[id number]. Result Comment: [email or web address] [email or web address] Performed By: #### L [id number] ####[facility] ([facility])[address] [place] [address] Glucose [Mass/Vol] 184 mg/dL High 70-105 [facility] Comment on above: Order Comment: Waive d Testing in the ED is performed under the ED CLIA certificate #[id number]. Result Comment: [email or web address] [email or web address] Performed By: #### L [id number] ####[facility] ([employer])[address] [place] [address] Glucose [Mass/Vol] 157 mg/dL High 70-105 [facility] Comment on above: Order Comment: Waive d Testing in the ED is performed under the ED CLIA certificate #[id number]. Result Comment: [email or web address] [email or web address] Performed By: #### L [id number] ####[facility] ([facility] [place] [address] Glucose [Mass/Vol] 59 mg/dL Low 70-105 [facility] Comment on above: Order Comment: Waive d Testing in the ED is performed under the ED CLIA certificate #[id number]. Result Comment: [email or web address] [email or web address] Performed By: #### L [id number] ####[facility] ([facility])[address] [place] [address] 30on 04-27-2024 30 Normal [facility] BASIC METABOLIC PANELon 04-06 Anion gap [Moles/Vol] 10 mmol/L Normal 7-20 [facility] Comment on above: Performed By: #### L [id number] ####[facility] ([facility])[address] [place] [address] Calcium [Mass/Vol] 7.6 mg/dL Low 8.6-10.3 [facility] Comment on above: Performed By: #### L [id number] ####[facility] ([facility])[address] [place] [address] Chloride [Moles/Vol] 100 mmol/L Normal 98-107 [facility] Comment on above: Performed By: #### L [id number] ####[facility] ([facility])[address] [place] [address] CO2 [Moles/Vol] 32 mmol/L High 21-31 [facility] Comment on above: Performed By: #### L [id number] ####[facility] ([facility])[address] [place] [address] Creatinine [Mass/Vol] 0.81 mg/dL Normal 0.60-1.20 [facility] Comment on above: Performed By: #### L [id number] ####[facility] ([facility])[address] [place] [address] GLOMERULAR FILTRATION RATE ML/MIN/1.73 SQ M.PREDICTED 81.0 mL/min/1.73m*2 Normal >60.0 [facility] Comment on above: Result Comment: [facility]???s estimated glomerular filtration rate (eGFR) will [...] of individuals. Performed By: #### L [id number] ####[facility] [place] [address] Glucose [Mass/Vol] 111 mg/dL High 70-100 [facility] Comment on above: Performed By: #### L [id number] ####[facility] ([facility])[address] [place] [address] Potassium [Moles/Vol] 3.6 mmol/L Normal 3.5-5.1 [facility] Comment on above: Performed By: #### L [id number] ####[facility] ([facility])[address] [place] [address] Sodium [Moles/Vol] 138 mmol/L Normal 136-145 [facility] Comment on above: Performed By: #### L [id number] ####[facility] ([facility])[address] [place] [address] Urea nitrogen [Mass/Vol] 19 mg/dL Normal 7-25 [facility] Comment on above: Performed By: #### L [id number] ####[facility] ([facility])[address] [place] [address] UREA NITROGEN/CREATININE (MASS RATIO) IN SER/PLAS 23.5 Normal [facility] Comment on above: Performed By: #### L [id number] ####[facility] ([facility])[address] [place] [address] CBCon 04-27-2024 Erythrocyte distribution width (RBC) [Ratio] 14.2 % Normal 11.5-15.0 [facility] Comment on above: Performed By: #### L [id number] ####[facility] [place] [address] ERYTHROCYTE MEAN CORPUSCULAR HEMOGLOBIN CONCENTRATION (G/DL) BY AUTOMATED 32.0 g/dL Normal 32.0-35.0 [facility] Comment on above: Performed By: #### L [id number] ####[facility] ([facility])[address] [place] [address] Hematocrit (Bld) [Volume fraction] 29.7 % Low 36.0-48.0 [facility] Comment on above: Performed By: #### L [id number] ####[facility] ([facility])[address] [place] [address] Hemoglobin (Bld) [Mass/Vol] 9.5 g/dL Low 12.0-15.0 [facility] Comment on above: Performed By: #### L [id number] ####[facility] ([facility])[address] [place] [address] MCH (RBC) [Entitic mass] 30.0 pg Normal 27.0-33.0 [facility] Comment on above: Performed By: #### L [id number] ####[facility] ([facility])[address] [place] [address] MCV (RBC) [Entitic vol] 93.7 fL Normal 82.0-98.0 [facility] Comment on above: Performed By: #### L [id number] ####[facility] ([facility])[address] [place] [address] PLATELETS (10*3/UL) IN BLOOD AUTOMATED COUNT 280 10*3/uL Normal 150-400 [facility] Comment on above: Performed By: #### L [id number] ####[facility] ([facility])[address] [place] [address] RBC (Bld) [#/Vol] 3.17 10*6/uL Low 3.80-5.00 [facility] Comment on above: Performed By: #### L [id number] ####[facility] ([facility])[address] [place] [address] WBC (Bld) [#/Vol] 7.40 10*3/uL Normal 4.00-10.60 [facility] Comment on above: Performed By: #### L [id number] ####[facility] ([facility])[address] [place] [address] CK TOTAL AND CKMBon 04-27-20 24 CREATINE KINASE (U/L) IN SER/PLAS 99.0 U/L Normal 30.0-223.0 [facility] Comment on above: Performed By: #### L [id number] ####[facility] ([facility])[address] [place] [address] CREATINE KINASE MB/CREATINE KINASE TOTAL BY CALCULATION 1.5 Normal 0.0-1.9 [facility] Comment on above: Performed By: #### L [id number] ####[facility] ([facility])[address] [place] [address] CREATINE KINASE-MB (NG/ML) IN SER/PLAS 1.5 ng/mL Normal 0.0-5.0 [facility] Comment on above: Performed By: #### L [id number] ####[facility] ([facility])[address] [place] [address] CONSULTon 04-27-2024 CONSULT Normal [facility] CONSULT Normal [facility] MAGNESIUMon 04-27-2024 Magnesium [Mass/Vol] 1.7 mg/dL Low 1.9-2.7 [facility] Comment on above: Performed By: #### L [id number] ####[facility] ([facility])[address] [place] [address] NURSNOTEon 04-27-2024 NURSNOTE Normal [facility] PHOSPHORUSon 04-27-2024 Magnesium [Mass/Vol] 3.4 mg/dL Normal 2.5-5.0 [facility] Comment on above: Performed By: #### L [id number] ####[facility] ([facility])[address] [place] [address] POCT GLUCOSE METER UNSOLICIT ED RESULTSon 04-27-2024 Glucose [Mass/Vol] 174 mg/dL High 70-105 [facility] Comment on above: Order Comment: Waive d Testing in the ED is performed under the ED CLIA certificate #[id number]. Result Comment: [email or web address] Performed By: #### L [id number] ####[facility] ([facility])[address] [place] [address] Glucose [Mass/Vol] 166 mg/dL High 70-105 [facility] Comment on above: Order Comment: Waive d Testing in the ED is performed under the ED CLIA certificate #[id number]. Result Comment: elac [email or web address] Performed By: #### L [id number] ####[facility] ([facility])[address] [place] [address] Glucose [Mass/Vol] 215 mg/dL High 70-105 [facility] Comment on above: Order Comment: Waive d Testing in the ED is performed under the ED CLIA certificate #[id number]. Result Comment: [email or web address] Performed By: #### L [id number] ####[facility] ([facility])[address] [place] [address] Glucose [Mass/Vol] 222 mg/dL High 70-105 [facility] Comment on above: Order Comment: Waive d Testing in the ED is performed under the ED CLIA certificate #[id number]. Result Comment: elac umsky Performed By: #### L [id number] ####[facility] ([facility])[address] [place] [address] Glucose [Mass/Vol] 251 mg/dL High 70-105 [facility] Comment on above: Order Comment: Waive d Testing in the ED is performed under the ED CLIA certificate #[id number]. Result Comment: elac umsky Performed By: #### L [id number] ####[facility] [place] [address] Glucose [Mass/Vol] 142 mg/dL High 70-105 [facility] Comment on above: Order Comment: Waive d Testing in the ED is performed under the ED CLIA certificate #[id number]. Result Comment: [email or web address] Performed By: #### L [id number] ####[facility] [place] [address] Glucose [Mass/Vol] 66 mg/dL Low 70-105 [facility] Comment on above: Order Comment: Waive d Testing in the ED is performed under the ED CLIA certificate #[id number]. Result Comment: [email or web address] Performed By: #### L [id number] ####[facility] ([facility])[address] [place] [address] T4, FREEon 04-27-2024 THYROXINE (T4) FREE (NG/DL) IN SER/PLAS 1.00 ng/dL Normal 0.71-1.85 [facility] Comment on above: Performed By: #### L [id number] ####[facility] ([facility])[address] [place] [address] TSHon 04-27-2024 THYROTROPIN (MIU/L) IN SER/PLAS BY DETECTION LIMIT <= 0.05 MIU/L 6.69 mIU/L High 0.34-5.60 [facility] Comment on above: Performed By: #### L [id number] ####[facility] ([facility])[address] [place] [address] 30on 04-26-2024 30 Normal [facility] BASIC METABOLIC PANELon 08 Anion gap [Moles/Vol] 12 mmol/L Normal 7-20 [facility] Comment on above: Performed By: #### L [id number] ####[facility] ([facility])[address] [place] [address] Calcium [Mass/Vol] 8.0 mg/dL Low 8.6-10.3 [facility] Comment on above: Performed By: #### L [id number] ####[facility] ([facility])[address] [place] [address] Chloride [Moles/Vol] 98 mmol/L Normal 98-107 [facility] Comment on above: Performed By: #### L [id number] ####[facility] [place] [address] CO2 [Moles/Vol] 28 mmol/L Normal 21-31 [facility] Comment on above: Performed By: #### L [id number] ####[facility] ([facility])[address] [place] [address] Creatinine [Mass/Vol] 0.78 mg/dL Normal 0.60-1.20 [facility] Comment on above: Performed By: #### L [id number] ####[facility] ([facility])[address] [place] [address] GLOMERULAR FILTRATION RATE ML/MIN/1.73 SQ M.PREDICTED 84.8 mL/min/1.73m*2 Normal >60.0 [facility] Comment on above: Result Comment: [facility]???s estimated glomerular filtration rate (eGFR) will [...] of individuals. Performed By: #### L [id number] ####[facility] ([facility])[address] [place] [address] Glucose [Mass/Vol] 456 mg/dL Critically high 70-100 [facility] Comment on above: Performed By: #### L [id number] ####[facility] [place] [address] Potassium [Moles/Vol] 4.8 mmol/L Normal 3.5-5.1 [facility] Comment on above: Performed By: #### L [id number] ####[facility] ([facility])[address] [place] [address] Sodium [Moles/Vol] 133 mmol/L Low 136-145 [facility] Comment on above: Performed By: #### L [id number] ####[facility] ([facility])[address] [place] [address] Urea nitrogen [Mass/Vol] 22 mg/dL Normal 7-25 [facility] Comment on above: Performed By: #### L [id number] ####[facility] ([facility])[address] [place] [address] UREA NITROGEN/CREATININE (MASS RATIO) IN SER/PLAS 28.2 Normal [facility] Comment on above: Performed By: #### L [id number] ####[facility] ([facility])[address] [place] [address] BLOOD CULTUREon 04-26-2024 Bacteria identified Cx Nom (Bld) No growth at 5 days Normal [facility] Comment on above: Order Comment: From a different site than #1. Performed By: #### L [id number] ####[facility] ([facility])[address] [place] [address] Bacteria identified Cx Nom (Bld) No growth at 5 days Normal [facility] Comment on above: Performed By: #### L [id number] ####[facility] ([facility])[address] [place] [address] CBCon 04-26-2024 Erythrocyte distribution width (RBC) [Ratio] 14.6 % Normal 11.5-15.0 [facility] Comment on above: Performed By: #### L [id number] ####[facility] ([facility])[address] [place] [address] ERYTHROCYTE MEAN CORPUSCULAR HEMOGLOBIN CONCENTRATION (G/DL) BY AUTOMATED 31.0 g/dL Low 32.0-35.0 [facility] Comment on above: Performed By: #### L [id number] ####[facility] ([facility])[address] [place] [address] Hematocrit (Bld) [Volume fraction] 33.2 % Low 36.0-48.0 [facility] Comment on above: Performed By: #### L [id number] ####[facility] ([facility])[address] [place] [address] Hemoglobin (Bld) [Mass/Vol] 10.3 g/dL Low 12.0-15.0 [facility] Comment on above: Performed By: #### L [id number] ####[facility] ([facility])[address] [place] [address] MCH (RBC) [Entitic mass] 30.1 pg Normal 27.0-33.0 [facility] Comment on above: Performed By: #### L [id number] ####[facility] ([facility])[address] [place] [address] MCV (RBC) [Entitic vol] 97.1 fL Normal 82.0-98.0 [facility] Comment on above: Performed By: #### L [id number] ####[facility] ([facility])[address] [place] [address] PLATELETS (10*3/UL) IN BLOOD AUTOMATED COUNT 233 10*3/uL Normal 150-400 [facility] Comment on above: Performed By: #### L [id number] ####[facility] ([facility])[address] [place] [address] RBC (Bld) [#/Vol] 3.42 10*6/uL Low 3.80-5.00 [facility] Comment on above: Performed By: #### L [id number] ####[facility] ([facility])[address] [place] [address] WBC (Bld) [#/Vol] 7.37 10*3/uL Normal 4.00-10.60 [facility] Comment on above: Performed By: #### L [id number] ####[facility] ([facility])[address] [place] [address] CBC WITH AUTO DIFFERENTIALon 04-26-2024 Basophils (Bld) [#/Vol] 0.06 10*3/uL Normal 0.00-0.20 [facility] Comment on above: Performed By: #### L [id number] ####[facility] ([facility])[address] [place] [address] Basophils/100 WBC (Bld) 0.7 % Normal 0.0-1.0 [facility] Comment on above: Performed By: #### L [id number] ####[facility] ([facility])[address] [place] [address] Eosinophils (Bld) [#/Vol] 0.25 10*3/uL Normal 0.00-0.50 [facility] Comment on above: Performed By: #### L [id number] ####[facility] ([facility])[address] [place] [address] Eosinophils/100 WBC (Bld) 3.1 % Normal 0.0-6.0 [facility] Comment on above: Performed By: #### L [id number] ####[facility] ([facility])[address] [place] [address] Erythrocyte distribution width (RBC) [Ratio] 14.4 % Normal 11.5-15.0 [facility] Comment on above: Performed By: #### L [id number] ####[facility] ([facility])[address] [place] [address] ERYTHROCYTE MEAN CORPUSCULAR HEMOGLOBIN CONCENTRATION (G/DL) BY AUTOMATED 32.2 g/dL Normal 32.0-35.0 [facility] Comment on above: Performed By: #### L [id number] ####[facility] ([facility])[address] [place] [address] Hematocrit (Bld) [Volume fraction] 32.6 % Low 36.0-48.0 [facility] Comment on above: Performed By: #### L [id number] ####[facility] ([facility])[address] [place] [address] Hemoglobin (Bld) [Mass/Vol] 10.5 g/dL Low 12.0-15.0 [facility] Comment on above: Performed By: #### L [id number] ####[facility] (BEAKER)[address] [place] [address] Immature granulocytes (Bld) [#/Vol] 0.05 10*3/uL Normal 0.00-0.20 [facility] Comment on above: Performed By: #### L [id number] ####[facility] ([facility])[address] [place] [address] Immature granulocytes/100 WBC (Bld) 0.6 % Normal 0.0-1.0 [facility] Comment on above: Performed By: #### L [id number] ####[facility] ([facility])[address] [place] [address] Lymphocytes (Bld) [#/Vol] 0.90 10*3/uL Low 1.20-4.00 [facility] Comment on above: Performed By: #### L [id number] ####[facility] ([facility])[address] [place] [address] Lymphocytes/100 WBC (Bld) 11.0 % Low 20.0-45.0 [facility] Comment on above: Performed By: #### L [id number] ####[facility] ([facility])[address] [place] [address] MCH (RBC) [Entitic mass] 30.0 pg Normal 27.0-33.0 [facility] Comment on above: Performed By: #### L [id number] ####[facility] ([facility])[address] [place] [address] MCV (RBC) [Entitic vol] 93.1 fL Normal 82.0-98.0 [facility] Comment on above: Performed By: #### L [id number] ####[facility] ([facility])[address] [place] [address] Monocytes (Bld) [#/Vol] 0.61 10*3/uL Normal 0.10-1.00 [facility] Comment on above: Performed By: #### L [id number] ####[facility] ([facility])[address] [place] [address] Monocytes/100 WBC (Bld) 7.4 % Normal 5.0-12.0 [facility] Comment on above: Performed By: #### L [id number] ####[facility] ([facility])[address] [place] [address] Neutrophils (Bld) [#/Vol] 6.32 10*3/uL Normal 1.60-7.60 [facility] Comment on above: Performed By: #### L [id number] ####[facility] [place] [address] Neutrophils/100 WBC (Bld) 77.2 % High 40.0-72.0 [facility] Comment on above: Performed By: #### L [id number] ####[facility] [place] [address] NRBC (PER 100 WBCS) BY AUTOMATED COUNT 0.0 % Normal 0 [facility] Comment on above: Performed By: #### L [id number] ####[facility] ([facility])[address] [address] PLATELETS (10*3/UL) IN BLOOD AUTOMATED COUNT 290 10*3/uL Normal 150-400 [facility] Comment on above: Performed By: #### L [id number] ####[facility] [place] [address] RBC (Bld) [#/Vol] 3.50 10*6/uL Low 3.80-5.00 [facility] Comment on above: Performed By: #### L [id number] ####[facility] ([facility])[address] [place] [address] WBC (Bld) [#/Vol] 8.19 10*3/uL Normal 4.00-10.60 [facility] Comment on above: Performed By: #### L [id number] ####[facility] ([facility])[address] [place] [address] LACTIC ACID, PLASMAon 2023 LACTATE (MMOL/L) IN SER/PLAS 1.7 mmol/L Normal 0.5-2.2 [facility] Comment on above: Performed By: #### L [id number] ####[facility] ([facility])[address] [place] [address] MAGNESIUMon 04-26-2024 Magnesium [Mass/Vol] 2.1 mg/dL Normal 1.9-2.7 [facility] Comment on above: Performed By: #### L [id number] ####[facility] ([facility])[address] [place] [address] MRSA/MSSA DNA NASALon 2023 MRSA DNA Negative Normal Negative [facility] Comment on above: Order Comment: Testi [...] preclude nasal colonization. Performed By: #### L [id number] ####[facility] ([facility])[address] [place] [address] MSSA DNA Negative Normal Negative [facility] Comment on above: Order Comment: Testi [...] preclude nasal colonization. Performed By: #### L [id number] ####[facility] ([facility])[address] [place] [address] PHOSPHORUSon 04-26-2024 Magnesium [Mass/Vol] 2.4 mg/dL Low 2.5-5.0 [facility] Comment on above: Performed By: #### L [id number] ####[facility] [place] [address] POCT GLUCOSE METER UNSOLICIT ED RESULTSon 04-26-2024 Glucose [Mass/Vol] 127 mg/dL High 70-105 [facility] Comment on above: Order Comment: Waive d Testing in the ED is performed under the ED CLIA certificate #[id number]. Result Comment: [email or web address] Performed By: #### L [id number] ####[facility] ([facility])[address] [place] [address] Glucose [Mass/Vol] 221 mg/dL High 70-105 [facility] Comment on above: Order Comment: Waive d Testing in the ED is performed under the ED CLIA certificate #[id number]. Result Comment: owit tko Performed By: #### L [id number] ####[facility] ([facility])[address] [place] [address] Glucose [Mass/Vol] 438 mg/dL High 70-105 [facility] Comment on above: Order Comment: Waive d Testing in the ED is performed under the ED CLIA certificate #[id number]. Result Comment: owit tko Performed By: #### L [id number] ####[facility] ([facility])[address] [place] [address] Glucose [Mass/Vol] 474 mg/dL High 70-105 [facility] Comment on above: Order Comment: Waive d Testing in the ED is performed under the ED CLIA certificate #[id number]. Result Comment: owit tko Performed By: #### L [id number] ####[facility] ([facility])[address] [place] [address] Glucose [Mass/Vol] 480 mg/dL High 70-105 [facility] Comment on above: Order Comment: Waive d Testing in the ED is performed under the ED CLIA certificate #[id number]. Result Comment: [email or web address] Performed By: #### L [id number] ####[facility] ([facility])[address] [place] [address] Glucose [Mass/Vol] 443 mg/dL High 70-105 [facility] Comment on above: Order Comment: Waive d Testing in the ED is performed under the ED CLIA certificate #[id number]. Result Comment: owit tko Performed By: #### L [id number] ####[facility] ([facility])[address] [place] [address] 30on 04-25-2024 30 Normal [facility] 30 Normal [facility] BASIC METABOLIC PANELon 04-06 Anion gap [Moles/Vol] 9 mmol/L Normal 7-20 [facility] Comment on above: Performed By: #### L [id number] ####[facility] ([facility])[address] [place] [address] Calcium [Mass/Vol] 8.7 mg/dL Normal 8.6-10.3 [facility] Comment on above: Performed By: #### L [id number] ####[facility] ([facility])[address] [place] [address] Chloride [Moles/Vol] 102 mmol/L Normal 98-107 [facility] Comment on above: Performed By: #### L [id number] ####[facility] ([facility])[address] [place] [address] CO2 [Moles/Vol] 29 mmol/L Normal 21-31 [facility] Comment on above: Performed By: #### L [id number] ####[facility] ([facility])[address] [place] [address] Creatinine [Mass/Vol] 0.63 mg/dL Normal 0.60-1.20 [facility] Comment on above: Performed By: #### L [id number] ####[facility] ([facility])[address] [place] [address] GLOMERULAR FILTRATION RATE ML/MIN/1.73 SQ M.PREDICTED 99.0 mL/min/1.73m*2 Normal >60.0 [facility] Comment on above: Result Comment: [facility]???s estimated glomerular filtration rate (eGFR) will [...] of individuals. Performed By: #### L [id number] ####[facility] ([facility])[address] [place] [address] Glucose [Mass/Vol] 175 mg/dL High 70-100 [facility] Comment on above: Performed By: #### L [id number] ####[facility] [place] [address] Potassium [Moles/Vol] 3.9 mmol/L Normal 3.5-5.1 [facility] Comment on above: Performed By: #### L [id number] ####[facility] [place] [address] Sodium [Moles/Vol] 136 mmol/L Normal 136-145 [facility] Comment on above: Performed By: #### L [id number] ####[facility] ([facility])[address] [facility] [address] Urea nitrogen [Mass/Vol] 15 mg/dL Normal 7-25 [facility] Comment on above: Performed By: #### L [id number] ####[facility] [address] UREA NITROGEN/CREATININE (MASS RATIO) IN SER/PLAS 23.8 Normal [facility] Comment on above: Performed By: #### L [id number] ####[facility] ([facility])[address] [facility] [address] CALCIUM, IONIZEDon 4 CALCIUM IONIZED (MMOL/L) IN BLOOD 1.23 mmol/L Normal 1.15-1.33 [facility] Comment on above: Performed By: #### L [id number] ####[facility] [id number] [place] [address] [place] CBCon 04-25-2024 Erythrocyte distribution width (RBC) [Ratio] 14.5 % Normal 11.5-15.0 [facility] Comment on above: Performed By: #### L [id number] ####[facility] ([facility]ER)[address] [place] [address] ERYTHROCYTE MEAN CORPUSCULAR HEMOGLOBIN CONCENTRATION (G/DL) BY AUTOMATED 33.5 g/dL Normal 32.0-35.0 [facility] Comment on above: Performed By: #### L [id number] ####[facility] ([facility]ER)[address] [place] [address] Hematocrit (Bld) [Volume fraction] 31.0 % Low 36.0-48.0 [facility] Comment on above: Performed By: #### L [id number] ####[facility] ([facility])[address] [place] [address] Hemoglobin (Bld) [Mass/Vol] 10.4 g/dL Low 12.0-15.0 [facility] Comment on above: Performed By: #### L [id number] ####[facility] ([facility])[address] [place] [address] MCH (RBC) [Entitic mass] 30.1 pg Normal 27.0-33.0 [facility] Comment on above: Performed By: #### L [id number] ####[facility] ([facility]ER)[address] [place] [address] MCV (RBC) [Entitic vol] 89.9 fL Normal 82.0-98.0 [facility] Comment on above: Performed By: #### L [id number] ####[facility] ([facility])[address] [place] [address] PLATELETS (10*3/UL) IN BLOOD AUTOMATED COUNT 256 10*3/uL Normal 150-400 [facility] Comment on above: Performed By: #### L [id number] ####[facility] [place] [address] RBC (Bld) [#/Vol] 3.45 10*6/uL Low 3.80-5.00 [facility] Comment on above: Performed By: #### L [id number] ####[facility] ([facility])[address] [place] [address] WBC (Bld) [#/Vol] 9.27 10*3/uL Normal 4.00-10.60 [facility] Comment on above: Performed By: #### L [id number] ####[facility] ([facility])[address] [place] [address] MAGNESIUMon 04-25-2024 Magnesium [Mass/Vol] 1.5 mg/dL Low 1.9-2.7 [facility] Comment on above: Performed By: #### L [id number] ####[facility] ([facility])[address] [place] [address] PHOSPHORUSon 04-25-2024 Magnesium [Mass/Vol] 2.0 mg/dL Low 2.5-5.0 [facility] Comment on above: Performed By: #### L [id number] ####[facility] ([facility])[address] [place] [address] Magnesium [Mass/Vol] 1.6 mg/dL Low 2.5-5.0 [facility] Comment on above: Performed By: #### L [id number] ####[facility] [place] [address] POCT GLUCOSE METER UNSOLICIT ED RESULTSon 04-25-2024 Glucose [Mass/Vol] 253 mg/dL High 70-105 [facility] Comment on above: Order Comment: Waive d Testing in the ED is performed under the ED CLIA certificate #[id number]. Result Comment: [email or web address] [email or web address] Performed By: #### L [id number] ####[facility] ([facility]ER)[address] [place] [address] Glucose [Mass/Vol] 283 mg/dL High 70-105 [facility] Comment on above: Order Comment: Waive d Testing in the ED is performed under the ED CLIA certificate #[id number]. Result Comment: elac umsky Performed By: #### L [id number] ####[facility] ([facility]ER)[address] [place] [address] Glucose [Mass/Vol] 379 mg/dL High 70-105 [facility] Comment on above: Order Comment: Waive d Testing in the ED is performed under the ED CLIA certificate #[id number]. Result Comment: nicolle macedo Performed By: #### L [id number] ####[facility] ([facility]ER)[address] [place] [address] Glucose [Mass/Vol] 334 mg/dL High 70-105 [facility] Comment on above: Order Comment: Waive d Testing in the ED is performed under the ED CLIA certificate #[id number]. Result Comment: elac umsky Performed By: #### L [id number] ####[facility] ([facility])[address] [place] [address] Glucose [Mass/Vol] 197 mg/dL High 70-105 [facility] Comment on above: Order Comment: Waive d Testing in the ED is performed under the ED CLIA certificate #[id number]. Result Comment: [facility] eub Performed By: #### L [id number] ####[facility] ([facility]ER)[address] [place] [address] 30on 04-24-2023 30 Normal [facility] BASIC METABOLIC PANELon 04-06 Anion gap [Moles/Vol] 10 mmol/L Normal 7-20 [facility] Comment on above: Performed By: #### L [id number] ####[facility] ([facility]ER)[address] [place] [address] Calcium [Mass/Vol] 8.1 mg/dL Low 8.6-10.3 [facility] Comment on above: Performed By: #### L [id number] ####[facility] ([facility]OSSE)[address] [place] [address] Chloride [Moles/Vol] 104 mmol/L Normal 98-107 [facility] Comment on above: Performed By: #### L [id number] ####[facility] ([facility])[address] [place] [address] CO2 [Moles/Vol] 27 mmol/L Normal 21-31 [facility] Comment on above: Performed By: #### L [id number] ####[facility] ([facility])[address] [place] [address] Creatinine [Mass/Vol] 0.74 mg/dL Normal 0.60-1.20 [facility] Comment on above: Performed By: #### L [id number] ####[facility] ([facility])[address] [facility] [place] [address] GLOMERULAR FILTRATION RATE ML/MIN/1.73 SQ M.PREDICTED 90.3 mL/min/1.73m*2 Normal >60.0 [facility] Comment on above: Result Comment: [facility]???s estimated glomerular filtration rate (eGFR) will [...] of individuals. Performed By: #### L [id number] ####[facility] ([place])[address] [place] [address] Glucose [Mass/Vol] 189 mg/dL High 70-100 [facility] Comment on above: Performed By: #### L [id number] ####[facility] ([facility]ER)[address] [place] [address] Potassium [Moles/Vol] 4.2 mmol/L Normal 3.5-5.1 [facility] Comment on above: Performed By: #### L [id number] ####[facility] ([facility])[address] [place] [address] Sodium [Moles/Vol] 137 mmol/L Normal 136-145 [facility] Comment on above: Performed By: #### L [id number] ####[facility] ([facility]ER)[address] [place] [address] Urea nitrogen [Mass/Vol] 19 mg/dL Normal 7-25 [facility] Comment on above: Performed By: #### L [id number] ####[facility] ([facility])[address] [place] [address] UREA NITROGEN/CREATININE (MASS RATIO) IN SER/PLAS 25.7 Normal [facility] Comment on above: Performed By: #### L [id number] ####[facility] ([facility])[address] [place] [address] CALCIUM, IONIZEDon CALCIUM IONIZED (MMOL/L) IN BLOOD 1.01 mmol/L Low 1.15-1.33 [facility] Comment on above: Performed By: #### L [id number] ####[facility] [id number] [place] [address] [place] CBCon 04-24-2024 Erythrocyte distribution width (RBC) [Ratio] 14.3 % Normal 11.5-15.0 [facility] Comment on above: Performed By: #### L [id number] ####[facility] ([facility])[address] [place] [address] ERYTHROCYTE MEAN CORPUSCULAR HEMOGLOBIN CONCENTRATION (G/DL) BY AUTOMATED 32.3 g/dL Normal 32.0-35.0 [facility] Comment on above: Performed By: #### L [id number] ####[facility] ([facility])[address] [place] [address] Hematocrit (Bld) [Volume fraction] 31.6 % Low 36.0-48.0 [facility] Comment on above: Performed By: #### L [id number] ####[facility] ([facility])[address] [place] [address] Hemoglobin (Bld) [Mass/Vol] 10.2 g/dL Low 12.0-15.0 [facility] Comment on above: Performed By: #### L [id number] ####[facility] ([facility])[address] [place] [address] MCH (RBC) [Entitic mass] 30.3 pg Normal 27.0-33.0 [facility] Comment on above: Performed By: #### L [id number] ####[facility] ([facility])[address] [place] [address] MCV (RBC) [Entitic vol] 93.8 fL Normal 82.0-98.0 [facility] Comment on above: Performed By: #### L [id number] ####[facility] ([facility])[address] [place] [address] PLATELETS (10*3/UL) IN BLOOD AUTOMATED COUNT 242 10*3/uL Normal 150-400 [facility] Comment on above: Performed By: #### L [id number] ####[facility] ([facility])[address] [place] [address] RBC (Bld) [#/Vol] 3.37 10*6/uL Low 3.80-5.00 [facility] Comment on above: Performed By: #### L [id number] ####[facility] ([facility])[address] [place] [address] WBC (Bld) [#/Vol] 8.93 10*3/uL Normal 4.00-10.60 [facility] Comment on above: Performed By: #### L [id number] ####[facility] [place] [address] MAGNESIUMon 04-24-2024 Magnesium [Mass/Vol] 1.7 mg/dL Low 1.9-2.7 [facility] Comment on above: Performed By: #### L [id number] ####[facility] ([facility])[address] [place] [address] POCT GLUCOSE METER UNSOLICIT ED RESULTSon 04-24-2024 Glucose [Mass/Vol] 269 mg/dL High 70-105 [facility] Comment on above: Order Comment: Waive d Testing in the ED is performed under the ED CLIA certificate #[id number]. Result Comment: [email or web address] [email or web address] Performed By: #### L [id number] ####[facility] ([facility])[address] [place] [address] Glucose [Mass/Vol] 361 mg/dL High 70-105 [facility] Comment on above: Order Comment: Waive d Testing in the ED is performed under the ED CLIA certificate #[id number]. Result Comment: elac umsky Performed By: #### L [id number] ####[facility] ([facility])[address] [place] [address] Glucose [Mass/Vol] 185 mg/dL High 70-105 [facility] Comment on above: Order Comment: Waive d Testing in the ED is performed under the ED CLIA certificate #[id number]. Result Comment: elac umsky Performed By: #### L [id number] ####[facility] ([facility])[address] [place] [address] Glucose [Mass/Vol] 209 mg/dL High 70-105 [facility] Comment on above: Order Comment: Waive d Testing in the ED is performed under the ED CLIA certificate #[id number]. Result Comment: elac umsky Performed By: #### L [id number] ####[facility] ([facility])[address] [place] [address] Glucose [Mass/Vol] 199 mg/dL High 70-105 [facility] Comment on above: Order Comment: Waive d Testing in the ED is performed under the ED CLIA certificate #[id number]. Result Comment: oziel gun Performed By: #### L [id number] ####[facility] (BEAKER)[address] [place] [address] Glucose [Mass/Vol] 304 mg/dL High 70-105 [facility] Comment on above: Order Comment: Waive d Testing in the ED is performed under the ED CLIA certificate #[id number]. Result Comment: nsch eub Performed By: #### L [id number] ####[facility] (BEAKER)[address] [place] [address] BASIC METABOLIC PANELon 04-05 Anion gap [Moles/Vol] 9 mmol/L Normal 7-20 [facility] Comment on above: Performed By: #### L [id number] ####[facility] ([facility])[address] [place] [address] Calcium [Mass/Vol] 8.4 mg/dL Low 8.6-10.3 [facility] Comment on above: Performed By: #### L [id number] ####[facility] ([facility])[address] [place] [address] Chloride [Moles/Vol] 106 mmol/L Normal 98-107 [facility] Comment on above: Performed By: #### L [id number] ####[facility] ([facility])[address] [place] [address] CO2 [Moles/Vol] 25 mmol/L Normal 21-31 [facility] Comment on above: Performed By: #### L [id number] ####[facility] ([facility])[address] [place] [address] Creatinine [Mass/Vol] 0.78 mg/dL Normal 0.60-1.20 [facility] Comment on above: Performed By: #### L [id number] ####[facility] (BEAKER)[address] [place] [address] GLOMERULAR FILTRATION RATE ML/MIN/1.73 SQ M.PREDICTED 84.8 mL/min/1.73m*2 Normal >60.0 [facility] Comment on above: Result Comment: [facility]???s estimated glomerular filtration rate (eGFR) will [...] of individuals. Performed By: #### L [id number] ####[facility] ([facility])[address] [place] [address] Glucose [Mass/Vol] 107 mg/dL High 70-100 [facility] Comment on above: Performed By: #### L [id number] ####[facility] ([facility])[address] [place] [address] Potassium [Moles/Vol] 3.7 mmol/L Normal 3.5-5.1 [facility] Comment on above: Performed By: #### L [id number] ####[facility] ([facility])[address] [place] [address] Sodium [Moles/Vol] 136 mmol/L Normal 136-145 [facility] Comment on above: Performed By: #### L [id number] ####[facility] [place] [address] Urea nitrogen [Mass/Vol] 21 mg/dL Normal 7-25 [facility] Comment on above: Performed By: #### L [id number] ####[facility] ([facility])[address] [place] [address] UREA NITROGEN/CREATININE (MASS RATIO) IN SER/PLAS 26.9 Normal [facility] Comment on above: Performed By: #### L [id number] ####[facility] ([facility])[address] [place] [address] Anion gap [Moles/Vol] 10 mmol/L Normal 7-20 [facility] Comment on above: Performed By: #### L [id number] ####[facility] [place] [address] Calcium [Mass/Vol] 8.7 mg/dL Normal 8.6-10.3 [facility] Comment on above: Performed By: #### L [id number] ####[facility] [place] [address] Chloride [Moles/Vol] 106 mmol/L Normal 98-107 [facility] Comment on above: Performed By: #### L [id number] ####[facility] ([facility])[address] [place] [address] CO2 [Moles/Vol] 26 mmol/L Normal 21-31 [facility] Comment on above: Performed By: #### L [id number] ####[facility] ([facility])[address] [place] [address] Creatinine [Mass/Vol] 0.87 mg/dL Normal 0.60-1.20 [facility] Comment on above: Performed By: #### L [id number] ####[facility] ([facility])[address] [place] [address] GLOMERULAR FILTRATION RATE ML/MIN/1.73 SQ M.PREDICTED 74.4 mL/min/1.73m*2 Normal >60.0 [facility] Comment on above: Result Comment: [facility]???s estimated glomerular filtration rate (eGFR) will [...] of individuals. Performed By: #### L [id number] ####[facility] ([facility])[address] [place] [address] Glucose [Mass/Vol] 175 mg/dL High 70-100 [facility] Comment on above: Performed By: #### L [id number] ####[facility] ([facility])[address] [place] [address] Potassium [Moles/Vol] 4.4 mmol/L Normal 3.5-5.1 [facility] [facility] Comment on above: Performed By: #### L [id number] ####[facility] ([facility] [place] [address] Sodium [Moles/Vol] 138 mmol/L Normal 136-145 [facility] Comment on above: Performed By: #### L [id number] ####[facility] ([facility] [place] [address] Urea nitrogen [Mass/Vol] 24 mg/dL Normal 7-25 [facility] Comment on above: Performed By: #### L [id number] ####[facility] ([facility])[address] [place] [address] UREA NITROGEN/CREATININE (MASS RATIO) IN SER/PLAS 27.6 Normal [facility] Comment on above: Performed By: #### L [id number] ####[facility] ([facility] [place] [address] CBCon 04-23-2024 Erythrocyte distribution width (RBC) [Ratio] 14.0 % Normal 11.5-15.0 [facility] Comment on above: Performed By: #### L [id number] ####[facility] ([facility] [place] [address] ERYTHROCYTE MEAN CORPUSCULAR HEMOGLOBIN CONCENTRATION (G/DL) BY AUTOMATED 29.8 g/dL Low 32.0-35.0 [facility] Comment on above: Performed By: #### L [id number] ####[facility] ([facility])[address] [place] [address] Hematocrit (Bld) [Volume fraction] 22.8 % Low 36.0-48.0 [facility] Comment on above: Performed By: #### L [id number] ####[facility] ([facility])[address] [place] [address] Hemoglobin (Bld) [Mass/Vol] 6.8 g/dL Low 12.0-15.0 [facility] Comment on above: Performed By: #### L [id number] ####[facility] ([facility])[address] [place] [address] MCH (RBC) [Entitic mass] 30.0 pg Normal 27.0-33.0 [facility] Comment on above: Performed By: #### L [id number] ####[facility] ([facility])[address] [place], [place] [address] MCV (RBC) [Entitic vol] 100.4 fL High 82.0-98.0 [facility] Comment on above: Performed By: #### L [id number] ####[facility] ([facility])[address] [place] [address] PLATELETS (10*3/UL) IN BLOOD AUTOMATED COUNT 229 10*3/uL Normal 150-400 [facility] Comment on above: Performed By: #### L [id number] ####[facility] ([facility])[address] [place] [address] RBC (Bld) [#/Vol] 2.27 10*6/uL Low 3.80-5.00 [facility] Comment on above: Performed By: #### L [id number] ####[facility] ([facility])[address] [place] [address] WBC (Bld) [#/Vol] 8.76 10*3/uL Normal 4.00-10.60 [facility] Comment on above: Performed By: #### L [id number] ####[facility] ([facility])[address] [place] [address] Erythrocyte distribution width (RBC) [Ratio] 13.8 % Normal 11.5-15.0 [facility] Comment on above: Performed By: #### L [id number] ####[facility] ([facility])[address] [place] [address] ERYTHROCYTE MEAN CORPUSCULAR HEMOGLOBIN CONCENTRATION (G/DL) BY AUTOMATED 32.5 g/dL Normal 32.0-35.0 [facility] Comment on above: Performed By: #### L [id number] ####[facility] ([facility])[address] [place] [address] Hematocrit (Bld) [Volume fraction] 25.2 % Low 36.0-48.0 [facility] Comment on above: Performed By: #### L [id number] ####[facility] ([facility])[address] [place] [address] Hemoglobin (Bld) [Mass/Vol] 8.2 g/dL Low 12.0-15.0 [facility] Comment on above: Performed By: #### L [id number] ####[facility] ([facility])[address] [place] [address] MCH (RBC) [Entitic mass] 30.5 pg Normal 27.0-33.0 [facility] Comment on above: Performed By: #### L [id number] ####[facility] ([facility])[address] [place] [address] MCV (RBC) [Entitic vol] 93.7 fL Normal 82.0-98.0 [facility] Comment on above: Performed By: #### L [id number] ####[facility] ([facility])[address] [place] [address] PLATELETS (10*3/UL) IN BLOOD AUTOMATED COUNT 268 10*3/uL Normal 150-400 [facility] Comment on above: Performed By: #### L [id number] ####[facility] ([facility])[address] [place] [address] RBC (Bld) [#/Vol] 2.69 10*6/uL Low 3.80-5.00 [facility] Comment on above: Performed By: #### L [id number] ####[facility] [place] [address] WBC (Bld) [#/Vol] 9.30 10*3/uL Normal 4.00-10.60 [facility] Comment on above: Performed By: #### L [id number] ####[facility] ([facility])[address] [place] [address] MAGNESIUMon 04-23-2024 Magnesium [Mass/Vol] 1.4 mg/dL Low 1.9-2.7 [facility] Comment on above: Performed By: #### L [id number] ####[facility] ([facility])[address] [place] [address] NURSNOTEon 04-23-2024 NURSNOT Normal [facility] PHOSPHORUSon 04-23-2024 Magnesium [Mass/Vol] 3.2 mg/dL Normal 2.5-5.0 [facility] Comment on above: Performed By: #### L [id number] ####[facility] ([facility])[address] [place] [address] POCT GLUCOSE METER UNSOLICIT ED RESULTSon 04-23-2024 Glucose [Mass/Vol] 301 mg/dL High 70-105 [facility] Comment on above: Order Comment: Waive d Testing in the ED is performed under the ED CLIA certificate #[id number]. Result Comment: nsch eub Performed By: #### L [id number] ####[facility] ([facility])[address] [place] [address] Glucose [Mass/Vol] 138 mg/dL High 70-105 [facility] Comment on above: Order Comment: Waive d Testing in the ED is performed under the ED CLIA certificate #[id number]. Result Comment: [facility] eub Performed By: #### L [id number] ####[facility] [place] [address] Glucose [Mass/Vol] 156 mg/dL High 70-105 [facility] Comment on above: Order Comment: Waive d Testing in the ED is performed under the ED CLIA certificate #[id number]. Result Comment: [email or web address] Performed By: #### L [id number] ####[facility] ([facility])[address] [place] [address] Glucose [Mass/Vol] 198 mg/dL High 70-105 [facility] Comment on above: Order Comment: Waive d Testing in the ED is performed under the ED CLIA certificate #[id number]. Result Comment: [email or web address] Performed By: #### L [id number] ####[facility] ([facility])[address] [place] [address] Glucose [Mass/Vol] 252 mg/dL High 70-105 [facility] Comment on above: Order Comment: Waive d Testing in the ED is performed under the ED CLIA certificate #[id number]. Result Comment: [email or web address] Performed By: #### L [id number] ####[facility] ([facility])[address] [place] [address] Glucose [Mass/Vol] 182 mg/dL High 70-105 [facility] Comment on above: Order Comment: Waive d Testing in the ED is performed under the ED CLIA certificate #[id number]. Result Comment: alaf oun3 Performed By: #### L [id number] ####[facility] ([facility])[address] [place] [address] Glucose [Mass/Vol] 189 mg/dL High 70-105 [facility] Comment on above: Order Comment: Waive d Testing in the ED is performed under the ED CLIA certificate #[id number]. Result Comment: alaf oun3 Performed By: #### L [id number] ####[facility] ([facility])[address] [place] [address] [id number] 04-22-2024 [id number] Normal [facility] ANESon 04-22-2024 ANES Normal [facility] ANES Normal [facility] Anesthesiaon 04-22-2024 Anesthesia [id number] Monica Acosta 1960 F Date Provider Department [place] 04/22/2024 CHRISTIANE AVENDANO [facility] No family history on file Normal [facility] BASIC METABOLIC PANELon 04-05 Anion gap [Moles/Vol] 14 mmol/L Normal 7-20 [facility] Comment on above: Performed By: #### L [id number] ####[facility] ([facility])[address] [place] [address] Calcium [Mass/Vol] 8.6 mg/dL Normal 8.6-10.3 [facility] Comment on above: Performed By: #### L [id number] ####[facility] ([facility])[address] [place] [address] Chloride [Moles/Vol] 102 mmol/L Normal 98-107 [facility] Comment on above: Performed By: #### L [id number] ####[facility] ([facility])[address] [place] [address] CO2 [Moles/Vol] 23 mmol/L Normal 21-31 [facility] Comment on above: Performed By: #### L [id number] ####[facility] ([facility])[address] [place] [address] Creatinine [Mass/Vol] 0.81 mg/dL Normal 0.60-1.20 [facility] Comment on above: Performed By: #### L [id number] ####[facility] ([facility])[address] [place] [address] GLOMERULAR FILTRATION RATE ML/MIN/1.73 SQ M.PREDICTED 81.0 mL/min/1.73m*2 Normal >60.0 [facility] Comment on above: Result Comment: [facility]???s estimated glomerular filtration rate (eGFR) will [...] of individuals. Performed By: #### L [id number] ####[facility] ([facility])[address] [place] [address] Glucose [Mass/Vol] 342 mg/dL High 70-100 [facility] Comment on above: Performed By: #### L [id number] ####[facility] ([facility])[address] [place] [address] Potassium [Moles/Vol] 4.5 mmol/L Normal 3.5-5.1 [facility] Comment on above: Performed By: #### L [id number] ####[facility] ([facility])[address] [place] [address] Sodium [Moles/Vol] 134 mmol/L Low 136-145 [facility] Comment on above: Performed By: #### L [id number] ####[facility] ([facility])[address] [place] [address] Urea nitrogen [Mass/Vol] 28 mg/dL High 7-25 [facility] Comment on above: Performed By: #### L [id number] ####[facility] [place] [address] UREA NITROGEN/CREATININE (MASS RATIO) IN SER/PLAS 34.6 Normal [facility] Comment on above: Performed By: #### L [id number] ####[facility] ([facility])[address] [place] [address] CBC WITH AUTO DIFFERENTIALon 04-22-2024 Basophils (Bld) [#/Vol] 0.06 10*3/uL Normal 0.00-0.20 [facility] Comment on above: Performed By: #### L [id number] ####[facility] ([facility])[address] [place] [address] Basophils/100 WBC (Bld) 0.5 % Normal 0.0-1.0 [facility] Comment on above: Performed By: #### L [id number] ####[facility] ([facility])[address] [place] [address] Eosinophils (Bld) [#/Vol] 0.22 10*3/uL Normal 0.00-0.50 [facility] Comment on above: Performed By: #### L [id number] ####[facility] [place] [address] Eosinophils/100 WBC (Bld) 1.9 % Normal 0.0-6.0 [facility] Comment on above: Performed By: #### L [id number] ####[facility] ([facility])[address] [place] [address] Erythrocyte distribution width (RBC) [Ratio] 13.5 % Normal 11.5-15.0 [facility] Comment on above: Performed By: #### L [id number] ####[facility] [place] [address] ERYTHROCYTE MEAN CORPUSCULAR HEMOGLOBIN CONCENTRATION (G/DL) BY AUTOMATED 31.4 g/dL Low 32.0-35.0 [facility] Comment on above: Performed By: #### L [id number] ####[facility] ([facility])[address] [place] [address] Hematocrit (Bld) [Volume fraction] 36.0 % Normal 36.0-48.0 [facility] Comment on above: Performed By: #### L [id number] ####[facility] ([facility])[address] [place] [address] Hemoglobin (Bld) [Mass/Vol] 11.3 g/dL Low 12.0-15.0 [facility] Comment on above: Performed By: #### L [id number] ####[facility] ([facility])[address] [place] [address] Immature granulocytes (Bld) [#/Vol] 0.05 10*3/uL Normal 0.00-0.20 [facility] Comment on above: Performed By: #### L [id number] ####[facility] ([facility])[address] [place] [address] Immature granulocytes/100 WBC (Bld) 0.4 % Normal 0.0-1.0 [facility] Comment on above: Performed By: #### L [id number] ####[facility] ([facility])[address] [place] [address] Lymphocytes (Bld) [#/Vol] 0.93 10*3/uL Low 1.20-4.00 [facility] Comment on above: Performed By: #### L [id number] ####[facility] ([facility])[address] [place] [address] Lymphocytes/100 WBC (Bld) 8.1 % Low 20.0-45.0 [facility] Comment on above: Performed By: #### L [id number] ####[facility] ([facility])[address] [place] [address] MCH (RBC) [Entitic mass] 30.3 pg Normal 27.0-33.0 [facility] Comment on above: Performed By: #### L [id number] ####[facility] ([facility])[address] [place] [address] MCV (RBC) [Entitic vol] 96.5 fL Normal 82.0-98.0 [facility] Comment on above: Performed By: #### L [id number] ####[facility] ([facility])[address] [place] [address] Monocytes (Bld) [#/Vol] 0.89 10*3/uL Normal 0.10-1.00 [facility] Comment on above: Performed By: #### L [id number] ####[facility] [place] [place] [address] Monocytes/100 WBC (Bld) 7.7 % Normal 5.0-12.0 [facility] Comment on above: Performed By: #### L [id number] ####[facility] ([facility])[address] [place] [address] Neutrophils (Bld) [#/Vol] 9.38 10*3/uL High 1.60-7.60 [facility] Comment on above: Performed By: #### L [id number] ####[facility] ([facility])[address] [place] [address] Neutrophils/100 WBC (Bld) 81.4 % High 40.0-72.0 [facility] Comment on above: Performed By: #### L [id number] ####[facility] [place] [address] NRBC (PER 100 WBCS) BY AUTOMATED COUNT 0.0 % Normal 0 [facility] Comment on above: Performed By: #### L [id number] ####[facility] ([facility])[address] [place] [address] PLATELETS (10*3/UL) IN BLOOD AUTOMATED COUNT 325 10*3/uL Normal 150-400 [facility] Comment on above: Performed By: #### L [id number] ####[facility] ([facility])[address] [place] [address] RBC (Bld) [#/Vol] 3.73 10*6/uL Low 3.80-5.00 [facility] Comment on above: Performed By: #### L [id number] ####[facility] [place] [address] WBC (Bld) [#/Vol] 11.53 10*3/uL High 4.00-10.60 [facility] Comment on above: Performed By: #### L [id number] ####[facility] [place] [address] EDPROVon 04-22-2024 EDPROV Invalid Interpretation Code [facility] HPon 04-22-2024 HP H&P reviewed. The patient was examined and there are no changes to the H&P. Normal [facility] MAGNESIUMon 04-22-2024 Magnesium [Mass/Vol] 1.5 mg/dL Low 1.9-2.7 [facility] Comment on above: Performed By: #### L [id number] ####[facility] ([facility])[address] [place] [address] MRSA/MSSA DNA NASALon 2023 MRSA DNA Negative Normal Negative [facility] Comment on above: Order Comment: Testi [...] preclude nasal colonization. Performed By: #### L [id number] ####[facility] ([facility])[address] [place] [address] MSSA DNA Negative Normal Negative [facility] Comment on above: Order Comment: Testi [...] preclude nasal colonization. Performed By: #### L [id number] ####[facility] ([facility])[address] [place] [address] NURSNOTEon 04-22-2024 NURSNOTE This radio script writer attempte d to get information about the insulin pump that is placed, patient is unable to give or sign the agreement at this time. Will try again at a later time. [facility] NURSNOTE [facility] NURSNOTE Dressing: Xeroflo, fluffs, kerlix, carlos wrap to bilateral legs [facility] OPNOTEon 08-18-2024 OPNOTE Normal [facility] PHOSPHORUSon 04-22-2024 Magnesium [Mass/Vol] 4.2 mg/dL Normal 2.5-5.0 [facility] Comment on above: Performed By: #### L [id number] ####[facility] ([facility])[address] [place] [address] POCT GLUCOSE METER UNSOLICIT ED RESULTSon 04-22-2024 Glucose [Mass/Vol] 187 mg/dL High 70-105 [facility] Comment on above: Order Comment: Waive d Testing in the ED is performed under the ED CLIA certificate #[id number]. Result Comment: [email or web address] [email or web address] Performed By: #### L [id number] ####[facility] ([facility])[address] [place] [address] Glucose [Mass/Vol] 256 mg/dL High 70-105 [facility] Comment on above: Order Comment: Waive d Testing in the ED is performed under the ED CLIA certificate #[id number]. Result Comment: [email or web address] Performed By: #### L [id number] ####[facility] ([facility])[address] [place] [address] Glucose [Mass/Vol] 247 mg/dL High 70-105 [facility] Comment on above: Order Comment: Waive d Testing in the ED is performed under the ED CLIA certificate #[id number]. Result Comment: [email or web address] Performed By: #### L [id number] ####[facility] ([facility])[address] [place] [address] Glucose [Mass/Vol] 213 mg/dL High 70-105 [facility] Comment on above: Order Comment: Waive d Testing in the ED is performed under the ED CLIA certificate #[id number]. Result Comment: [email or web address] [email or web address] Performed By: #### L [id number] ####[facility] ([facility])[address] [place] [address] Glucose [Mass/Vol] 247 mg/dL High 70-105 [facility] Comment on above: Order Comment: Waive d Testing in the ED is performed under the ED CLIA certificate #[id number]. Result Comment: sanket hl Performed By: #### L [id number] ####[facility] ([employer])[address] [place] [address] Glucose [Mass/Vol] 316 mg/dL High 70-105 [facility] Comment on above: Order Comment: Waive d Testing in the ED is performed under the ED CLIA certificate #[id number]. Result Comment: czyd orc Performed By: #### L [id number] ####[facility] ([facility])[address] [facility] [place] [address] Glucose [Mass/Vol] 343 mg/dL High [address] [facility] Comment on above: Order Comment: Waive d Testing in the ED is performed under the ED CLIA certificate #[id number]. Result Comment: czyd orc Performed By: #### L [id number] ####[facility] ([facility])[address] [facility] [place] [address] Glucose [Mass/Vol] 354 mg/dL High [address] [facility] Comment on above: Order Comment: Waive d Testing in the ED is performed under the ED CLIA certificate #[id number]. Result Comment: [email or web address] Performed By: #### L [id number] ####[facility] ([employer])[address] [facility] [place] [address] Glucose [Mass/Vol] 358 mg/dL High 70-105 [facility] Comment on above: Order Comment: Waive d Testing in the ED is performed under the ED CLIA certificate #[id number]. Result Comment: [email or web address] Performed By: #### L [id number] ####[facility] ([employer])[address] [facility] [place] [address] TOXICOLOGY PANEL URINEon AMPHETAMINE+METHAMPHE TAMINE SCREEN (PRESENCE) IN URINE Negative Normal Negative [facility] Comment on above: Performed By: #### L [id number] ####[facility] [place] [address] BARBITURATES PRESENCE IN URINE BY SCREEN METHOD Negative Normal Negative [facility] Comment on above: Performed By: #### L [id number] ####[facility] [place] [address] Benzodiazepines Ql (U) Positive Abnormal Negative [facility] Comment on above: Performed By: #### L [id number] ####[facility] ([facility])[address] [place] [address] CANNABINOID (PRESENCE) IN URINE BY SCREEN METHOD Negative Normal Negative [facility] Comment on above: Performed By: #### L [id number] ####[facility] ([facility])[address] [place] [address] Cocaine Ql (U) Negative Normal Negative [facility] Comment on above: Performed By: #### L [id number] ####[facility] ([facility])[address] [place] [address] METHADONE (PRESENCE) IN URINE BY SCREEN METHOD Negative Normal Negative [facility] Comment on above: Performed By: #### L [id number] ####[facility] ([facility])[address] [place] [address] OPIATES (PRESENCE) IN URINE BY SCREEN METHOD Positive Abnormal Negative [facility] Comment on above: Performed By: #### L [id number] ####[facility] ([facility])[address] [place] [address] PHENCYCLIDINE PRESENCE IN URINE BY SCREEN METHOD Negative Normal Negative [facility] Comment on above: Performed By: #### L [id number] ####[facility] ([facility])[address] [address] Propoxyphene Screen Ql (U) Negative Normal Negative [facility] Comment on above: Performed By: #### L [id number] ####[facility] [place] [address] TRICYCLIC ANTIDEPRESSANTS (PRESENCE) IN URINE Positive Abnormal Negative [facility] Comment on above: Performed By: #### L [id number] ####[facility] ([facility])[address] [place] [address] URINALYSIS WITH MICROSCOPICo n 04-22-2024 BILIRUBIN, TOTAL PRESENCE IN URINE Negative Normal Negative [facility] Comment on above: Performed By: #### L [id number] ####[facility] [place] [address] Clarity (U) Clear Normal Clear [facility] Comment on above: Performed By: #### L [id number] ####[facility] ([facility])[address] [place] [address] Color (U) Yellow Normal Yellow [facility] Comment on above: Performed By: #### L [id number] ####[facility] ([facility])[address] [place] [address] Glucose (U) [Mass/Vol] 50 mg/dL Abnormal Negative [facility] Comment on above: Performed By: #### L [id number] ####[facility] ([facility])[address] [place] [address] HEMOGLOBIN PRESENCE IN URINE Negative Normal Negative [facility] Comment on above: Performed By: #### L [id number] ####[facility] ([facility])[address] [place] [address] Ketones Ql (U) Negative Normal Negative [facility] Comment on above: Performed By: #### L [id number] ####[facility] ([facility])[address] [place] [address] LEUKOCYTE ESTERASE PRESENCE IN URINE BY TEST STRIP Negative Normal Negative [facility] Comment on above: Performed By: #### L [id number] ####[facility] ([facility])[address] [place] [address] MUCUS (#/HPF) IN URINE SEDIMENT Occasional Normal None Seen, Occasional, Few [facility] Comment on above: Performed By: #### L [id number] ####[facility] ([facility])[address] [place] [address] NITRITE PRESENCE IN URINE Negative Normal Negative [facility] Comment on above: Performed By: #### L [id number] ####[facility] ([facility])[address] [place] [address] pH (U) 5.0 [pH] Normal 5.0-8.0 [facility] Comment on above: Performed By: #### L [id number] ####[facility] ([facility])[address] [place] [address] Protein (U) [Mass/Vol] Negative Normal Negative [facility] Comment on above: Performed By: #### L [id number] ####[facility] ([employer])[address] [place] [address] RBC (#/HPF) IN URINE SEDIMENT None Seen Normal None Seen [facility] Comment on above: Performed By: #### L [id number] ####[facility] ([employer])[address] [place] [address] Specific gravity (U) [Rel density] 1.048 High 1.015-1.020 [facility] Comment on above: Performed By: #### L [id number] ####[facility] ([employer])[address] [place] [address] SQUAMOUS EPITHELIAL CELLS (#/HPF) IN URINE SEDIMENT Many Abnormal None Seen, Occasional [facility] Comment on above: Performed By: #### L [id number] ####[facility] ([facility])[address] [place] [address] WBC (LEUKOCYTE) (#/HPF) IN URINE SEDIMENT None Seen Normal None Seen [facility] Comment on above: Performed By: #### L [id number] ####[facility] ([facility]AK[facility])[address] [place] [address] APTTon 04-21-2024 ACTIVATED PARTIAL THROMBOPLASTIN TIME IN PPP BY COAGULATION ASSAY 22.9 Seconds Low 25.0-35.0 [facility] Comment on above: Result Comment: Clin ical significance of the APTT is questionable in the presence of heparin. Performed By: #### L [id number] ####[facility] (BEAKER)[address] [place] [address] BASIC METABOLIC PANELon 04-05 Anion gap [Moles/Vol] 8 mmol/L Normal 7-20 [facility] Comment on above: Performed By: #### L [id number] ####[facility] ([facility] [place] [address] Calcium [Mass/Vol] 9.1 mg/dL Normal 8.6-10.3 [facility] Comment on above: Performed By: #### L [id number] ####[facility] ([facility])[address] [place] [address] Chloride [Moles/Vol] 105 mmol/L Normal 98-107 [facility] Comment on above: Performed By: #### L [id number] ####[facility] ([facility] [place] [address] CO2 [Moles/Vol] 27 mmol/L Normal 21-31 [facility] Comment on above: Performed By: #### L [id number] ####[facility] ([facility] [place] [address] Creatinine [Mass/Vol] 0.77 mg/dL Normal 0.60-1.20 [facility] Comment on above: Performed By: #### L [id number] ####[facility] ([facility] [place] [address] GLOMERULAR FILTRATION RATE ML/MIN/1.73 SQ M.PREDICTED 86.1 mL/min/1.73m*2 Normal >60.0 [facility] Comment on above: Result Comment: [facility]???s estimated glomerular filtration rate (eGFR) will [...] of individuals. Performed By: #### L [id number] ####[facility] ([facility])[address] [place] [address] Glucose [Mass/Vol] 158 mg/dL High 70-100 [facility] Comment on above: Performed By: #### L [id number] ####[facility] ([facility])[address] [place] [address] Potassium [Moles/Vol] 4.1 mmol/L Normal 3.5-5.1 [facility] Comment on above: Performed By: #### L [id number] ####[facility] ([facility])[address] [place] [address] Sodium [Moles/Vol] 136 mmol/L Normal 136-145 [facility] Comment on above: Performed By: #### L [id number] ####[facility] ([facility])[address] [place] [address] Urea nitrogen [Mass/Vol] 31 mg/dL High 7-25 [facility] Comment on above: Performed By: #### L [id number] ####[facility] ([facility])[address] [place] [address] UREA NITROGEN/CREATININE (MASS RATIO) IN SER/PLAS 40.3 Normal [facility] Comment on above: Performed By: #### L [id number] ####[facility] ([facility])[address] [place] [address] CBC WITH AUTO DIFFERENTIALon 04-21-2024 Basophils (Bld) [#/Vol] 0.03 10*3/uL Normal 0.00-0.20 [facility] Comment on above: Performed By: #### L [id number] ####[facility] ([facility])[address] [place] [address] Basophils/100 WBC (Bld) 0.2 % Normal 0.0-1.0 [facility] Comment on above: Performed By: #### L [id number] ####[facility] (BEAKER)[address] [place] [address] Eosinophils (Bld) [#/Vol] 0.23 10*3/uL Normal 0.00-0.50 [facility] Comment on above: Performed By: #### L [id number] ####[facility] ([facility] [place] [address] Eosinophils/100 WBC (Bld) 1.8 % Normal 0.0-6.0 [facility] Comment on above: Performed By: #### L [id number] ####[facility] ([facility])[address] [place] [address] Erythrocyte distribution width (RBC) [Ratio] 13.3 % Normal 11.5-15.0 [facility] Comment on above: Performed By: #### L [id number] ####[facility] ([facility])[address] [place] [address] ERYTHROCYTE MEAN CORPUSCULAR HEMOGLOBIN CONCENTRATION (G/DL) BY AUTOMATED 32.7 g/dL Normal 32.0-35.0 [facility] Comment on above: Performed By: #### L [id number] ####[facility] ([facility])[address] [place] [address] Hematocrit (Bld) [Volume fraction] 35.5 % Low 36.0-48.0 [facility] Comment on above: Performed By: #### L [id number] ####[facility] ([facility] [place] [address] Hemoglobin (Bld) [Mass/Vol] 11.6 g/dL Low 12.0-15.0 [facility] Comment on above: Performed By: #### L [id number] ####[facility] ([facility] [place] [address] Immature granulocytes (Bld) [#/Vol] 0.04 10*3/uL Normal 0.00-0.20 [facility] Comment on above: Performed By: #### L [id number] ####[facility] ([facility])[address] [place] [address] Immature granulocytes/100 WBC (Bld) 0.3 % Normal 0.0-1.0 [facility] Comment on above: Performed By: #### L [id number] ####[facility] ([facility])[address] [place] [address] Lymphocytes (Bld) [#/Vol] 1.65 10*3/uL Normal 1.20-4.00 [facility] Comment on above: Performed By: #### L [id number] ####[facility] ([facility]ER)[address] [place] [address] Lymphocytes/100 WBC (Bld) 12.6 % Low 20.0-45.0 [facility] Comment on above: Performed By: #### L [id number] ####[facility] ([facility])[address] [place] [address] MCH (RBC) [Entitic mass] 30.0 pg Normal 27.0-33.0 [facility] Comment on above: Performed By: #### L [id number] ####[facility] ([facility]ER)[address] [place] [address] MCV (RBC) [Entitic vol] 91.7 fL Normal 82.0-98.0 [facility] Comment on above: Performed By: #### L [id number] ####[facility] ([facility])[address] [place] [address] Monocytes (Bld) [#/Vol] 1.02 10*3/uL High 0.10-1.00 [facility] Comment on above: Performed By: #### L [id number] ####[facility] ([facility])[address] [place] [address] Monocytes/100 WBC (Bld) 7.8 % Normal 5.0-12.0 [facility] Comment on above: Performed By: #### L [id number] ####[facility] ([facility])[address] [place] [address] Neutrophils (Bld) [#/Vol] 10.12 10*3/uL High 1.60-7.60 [facility] Comment on above: Performed By: #### L [id number] ####[facility] ([facility])[address] [place] [address] Neutrophils/100 WBC (Bld) 77.3 % High 40.0-72.0 [facility] Comment on above: Performed By: #### L [id number] ####[facility] ([facility])[address] [place] [address] NRBC (PER 100 WBCS) BY AUTOMATED COUNT 0.0 % Normal 0 [facility] Comment on above: Performed By: #### L [id number] ####[facility] ([facility])[address] [place] [address] PLATELETS (10*3/UL) IN BLOOD AUTOMATED COUNT 334 10*3/uL Normal 150-400 [facility] Comment on above: Performed By: #### L [id number] ####[facility] ([facility])[address] [place] [address] RBC (Bld) [#/Vol] 3.87 10*6/uL Normal 3.80-5.00 [facility] Comment on above: Performed By: #### L [id number] ####[facility] ([facility])[address] [place] [address] WBC (Bld) [#/Vol] 13.09 10*3/uL High 4.00-10.60 [facility] Comment on above: Performed By: #### L [id number] ####[facility] ([facility])[address] [place] [address] CONSULTon 04-21-2024 CONSULT Normal [facility] CT CERVICAL SPINE WO IV CONT RASTon 04-21-2024 CT CERVICAL SPINE WO IV CONTRAST Normal [facility] CT CHEST W IV CONTRASTon CT CHEST W IV CONTRAST Normal [facility] CT HEAD WO IV CONTRASTon CT HEAD WO IV CONTRAST Normal [facility] CTA AORTA AND BILATERAL ILIO FEMORAL RUNOFF W IV CONTRASTon 04-21-2024 CTA AORTA AND BILATERAL ILIOFEMORAL RUNOFF W IV CONTRAST Normal [facility] EDNURSon 04-21-2024 EDNURS Normal [facility] EDNURS Transfer from [place] Normal [facility] EDPROVon 04-21-2024 EDPROV Normal [facility] ETHANOLon 04-21-2024 ETHANOL (MG/DL) IN SER/PLAS <10 Normal [facility] Comment on above: Performed By: #### L [id number] ####[facility] ([facility]AKER)[address] [place] [address] ETHANOL CALCULATED (%) [facility] Comment on above: Performed By: #### L [id number] ####[facility] ([facility])[address] [place] [address] HEPATIC FUNCTION PANELon Albumin [Mass/Vol] 3.5 g/dL Normal 3.5-5.7 [facility] Comment on above: Performed By: #### L [id number] ####[facility] ([facility]ER)[address] [place] [address] ALP [Catalytic activity/Vol] 240 U/L High 34-104 [facility] Comment on above: Performed By: #### L [id number] ####[facility] ([facility]ER)[address] [place] [address] ALT [Catalytic activity/Vol] 72 U/L High 7-52 [facility] Comment on above: Performed By: #### L [id number] ####[facility] ([facility]ER)[address] [place] [address] AST [Catalytic activity/Vol] 131 U/L High 13-39 [facility] Comment on above: Performed By: #### L [id number] ####[facility] ([facility]ER)[address] [place] [address] Bilirubin [Mass/Vol] 0.3 mg/dL Normal 0.3-1.0 [facility] Comment on above: Performed By: #### L [id number] ####[facility] ([facility] [place] [address] Magnesium [Mass/Vol] 0.1 mg/dL Normal 0-0.2 [facility] Comment on above: Performed By: #### L [id number] ####[facility] ([facility])[address] [place] [address] Protein [Mass/Vol] 6.8 g/dL Normal 6.0-8.3 [facility] Comment on above: Performed By: #### L [id number] ####[facility] ([facility])[address] [place] [address] HPon 04-21-2024 HP Normal [facility] HP Normal [facility] LACTIC ACID, PLASMAon 2023 LACTATE (MMOL/L) IN SER/PLAS 0.9 mmol/L Normal 0.5-2.2 [facility] Comment on above: Performed By: #### L [id number] ####[facility] ([facility])[address] [place] [address] LIPASEon 04-21-2024 LIPASE (U/L) IN SER/PLAS 8 U/L Low 11-82 [facility] Comment on above: Performed By: #### L [id number] ####[facility] ([facility])[address] [place] [address] PROTIME-INRon 04-21-2024 INR IN PPP BY COAGULATION ASSAY 0.99 Normal 0.90-1.10 [facility] Comment on above: Result Comment: ACCC [...] CHEST 1995;108:[id number]. Performed By: #### L [id number] ####[facility] ([employer])[address] [place] [address] PROTHROMBIN TIME (PT) IN PPP BY COAGULATION ASSAY 13.1 Seconds Normal 12.3-14.8 [facility] Comment on above: Performed By: #### L [id number] ####[facility] ([employer])[address] [facility] [place] [address] TROPONIN Ion 04-21-2024 Troponin I.cardiac [Mass/Vol] 0.01 ng/mL Normal 0.00-0.04 [facility] Comment on above: Performed By: #### L [id number] ####[facility] ([employer])[address] [facility] [place] [address] TYPE AND SCREENon 04-21-2024 AB SCREEN Negative Normal [facility] Comment on above: Performed By: #### L [id number] ####[facility], ABO group Nom (Bld) A Normal [facility] Comment on above: Performed By: #### L [id number] ####[facility], RH TYPE IN BLOOD Positive Normal [facility] Comment on above: Performed By: #### L [id number] ####[facility], VITAMIN D 25 HYDROXYon 04-21 CALCIDIOL (25 [place] VITAMIN D3) (NG/ML) IN SER/PLAS 34.8 ng/mL Normal 30.0-80.0 [facility] Comment on above: Result Comment: >80. 0 Toxicity possible Performed By: #### L [id number] ####[facility] ([facility])[address] [place] [address] BASIC METABOLIC PANLon 04-13 Anion gap [Moles/Vol] 10 mmol/L Normal 5-15 [facility] Comment on above: Performed By: #### B MP #### [facility] ([id number]) [address], [address] [place] [address] Calcium [Mass/Vol] 9.9 mg/dL Normal 8.5-10.5 [facility] Comment on above: Performed By: #### B MP #### [facility] ([id number]) [address], [address] [place] [address] Chloride [Moles/Vol] 100 mmol/L Normal 98-109 [facility] Comment on above: Performed By: #### B MP #### [facility] ([id number]) [address], [address] [place] [address] CO2 [Moles/Vol] 27 mmol/L Normal 22-32 [facility] Comment on above: Performed By: #### B MP #### [facility] ([id number]) [address], [address] [place] [address] Creatinine [Mass/Vol] 0.92 mg/dL Normal 0.40-1.00 [facility] Comment on above: Result Comment: METH OD TRACEABLE TO IDMS STANDARD Performed By: #### B MP #### [facility] ([id number]) [address], [address] [place] [address] GFR/1.73 sq M.predicted among non-blacks MDRD (S/P/Bld) [Vol rate/Area] 70 mL/min/{1.73_m2} Normal >59 [facility] Comment on above: Result Comment: Reported eGFR is based on the CKD-EPI 2020 equation that does not use a race coefficient. Performed By: #### B MP #### [facility] ([id number]) [address], [address] [place] [address] Glucose [Mass/Vol] 151 mg/dL High 65-99 [facility] Comment on above: Performed By: #### B MP #### [facility] ([id number]) [address], [address] [place] [address] Potassium [Moles/Vol] 4.5 mmol/L Normal 3.5-5.0 [facility] Comment on above: Performed By: #### B MP #### [facility] ([id number]) [address], [address] [place] [address] Sodium [Moles/Vol] 137 mmol/L Normal 134-146 [facility] Comment on above: Performed By: #### B MP #### [facility] ([id number]) [address], [address] [place] [address] Urea nitrogen [Mass/Vol] 28 mg/dL High 5-27 [facility] Comment on above: Performed By: #### B MP #### [facility] ([id number]) [address], [address] [place] [address] DRUG SCREEN, URINEon 024 AMPHETAMINE/METHAMP Negative Normal NEG [facility] Comment on above: Result Comment: AMPH /METH screening cut off = 1000 ng/mL Performed By: #### SELENA STINSON #### [facility] ([id number]) [address], [address] [place] [address] BARBITURATES Negative Normal NEG [facility] Comment on above: Result Comment: Juana iturates screening cut off value = 200 ng/mL Performed By: #### SELENA STINSON #### [facility] ([id number]) [address], [address] [place] [address] BENZODIAZEPINES Negative Normal NEG [facility] Comment on above: Result Comment: Wade odiazepines screening cut off value = 200 ng/mL Performed By: #### SELENA STINSON #### [facility] ([id number]) [address], [address] [place] [address] CANNABINOIDS Negative Normal NEG [facility] Comment on above: Result Comment: Venus abinoids/THC screening cut off value = 50 ng/mL Performed By: #### SELENA STINSON #### [facility] ([id number]) [address], [address] [place] [address] COCAINE METABOLITE Negative Normal NEG [facility] Comment on above: Result Comment: Coca ine screening cut off value = 300 ng/mL Performed By: #### SELENA STINSON #### [facility] ([id number]) [address], [address] [place] [address] ECSTASY Negative Normal NEG [facility] Comment on above: Result Comment: Ecst asy screening cut off value = 500 ng/mL This report is intended for use in clinical monitoring or management of patients. Performed By: #### SELENA STINSON #### [facility] ([id number]) [address], [address] [place] [address] METHADONE Negative Normal NEG [facility] Comment on above: Result Comment: Meth adone screening cut off value = 300 ng/mL. Performed By: #### SELENA STINSON #### [facility] ([id number]) [address], [address] [place] [address] OPIATES Negative Normal NEG [facility] Comment on above: Result Comment: Opia rafal screening cut off value = 300 ng/mL NOTE: This test is used for the detection of codeine, hydrocodone (>1000 ng/mL), morphine and hydromorphone (>900 ng/mL) in urine. Performed By: #### SELENA STINSON #### [facility] ([id number]) [address], [address] [place] [address] OXYCODONE Negative Normal NEG [facility] Comment on above: Result Comment: Oxyc odone screening cut off value = 300 ng/mL NOTE: This test is used for the detection of oxycodone and oxymorphone in urine. Performed By: #### SELENA STINSON #### [facility] ([id number]) [address] [address] PHENCYCLIDINE Negative Normal NEG [facility] Comment on above: Result Comment: Phen cyclidine screening cut off value = 25 ng/mL Performed By: #### SELENA STINSON #### [facility] ([id number]) [address] [address] MICROALBUMIN - ALBUMIN:CREAT ININE URINE RATIOon 03-27-2024 ALB/CREAT RATIO 37.7 mg/g creat High 0.0-30.0 [facility] Comment on above: Performed By: #### SELENA STINSON #### [facility] ([id number]) [address] [address] Albumin DL <= 20 mg/L (U) [Mass/Vol] 2.0 mg/dL High 0.0-1.9 [facility] Comment on above: Performed By: #### SELENA STINSON #### [facility] ([id number]) [address] [address] URINE CREAT 53.06 mg/dL Normal [facility] Comment on above: Performed By: #### Jero DECKER FINESSEDRAGAN #### [facility] ([id number]) [address] [address] COMPLETE BLOOD COUNTon 03-26 Erythrocyte distribution width (RBC) [Ratio] 14.4 % Normal 11.5-15.0 [facility] Comment on above: Performed By: #### C BC, CMP #### [facility] ([id number]) [address] [place] [address] Hematocrit (Bld) [Volume fraction] 40.1 % Normal 35-47 [facility] Comment on above: Performed By: #### C SHEEBA, CMP #### [facility] ([id number]) [address], [address] [place] [address] Hemoglobin (Bld) [Mass/Vol] 13.5 g/dL Normal 11.7-15.5 [facility] Comment on above: Performed By: #### C SHEEBA, CMP #### [facility] ([id number]) [address], [facility] [address] [place] [address] MCH (RBC) [Entitic mass] 30.8 pg Normal 27-34 [facility] Comment on above: Performed By: #### Sheila ALY, CMP #### [facility] ([id number]) [address], [address] [place] [address] MCHC (RBC) [Mass/Vol] 33.7 g/dL Normal 32-36 [facility] Comment on above: Performed By: #### C SHEEBA, CMP #### [facility] ([id number]) [address], [address] [place] [address] MCV (RBC) [Entitic vol] 91 fL Normal 80-100 [facility] Comment on above: Performed By: #### C SHEEBA, CMP #### [facility] ([id number]) [address], [address] [place] [address] Platelet mean volume (Bld) [Entitic vol] 9.8 fL Normal 7-12 [facility] Comment on above: Performed By: #### C SHEEBA, CMP #### [facility] ([id number]) [address] [address] [place] [address] Platelets (Bld) [#/Vol] 308 10*3/uL Normal 150-450 [facility] Comment on above: Performed By: #### C SHEEBA, CMP #### [facility] ([id number]) [address], [address] [place] [address] RBC COUNT 4.39 X10E12/L Normal 3.80-5.20 [facility] Comment on above: Performed By: #### C SHEEBA, CMP #### [facility] ([id number]) [address], [address] [place] [address] WBC (Bld) [#/Vol] 10.1 10*3/uL Normal 4.0-11.0 [facility] Comment on above: Performed By: #### C SHEEBA, CMP #### [facility] ([id number]) [address], [address] [place] [address] COMPREHENSIVE METABOLIC PANE Neftali 03-26-2024 Albumin [Mass/Vol] 3.8 g/dL Normal 3.2-5.3 [facility] Comment on above: Performed By: #### Sheila ALY, CMP #### [facility] ([id number]) [address], [address] [place] [address] ALP [Catalytic activity/Vol] 133 U/L High 39-130 [facility] Comment on above: Performed By: #### C SHEEBA, CMP #### [facility] ([id number]) [address], [address] [place] [address] ALT [Catalytic activity/Vol] 22 U/L Normal 0-31 [facility] Comment on above: Performed By: #### Sheila ALY, CMP #### [facility] ([id number]) [address], [address] [place] [address] Anion gap [Moles/Vol] 7 mmol/L Normal 5-15 [facility] Comment on above: Performed By: #### C SHEEBA, CMP #### [facility] ([id number]) [address], [address] [place] [address] AST [Catalytic activity/Vol] 24 U/L Normal 0-41 [facility] Comment on above: Performed By: #### C SHEEBA, CMP #### [facility] ([id number]) [address], [address] [place] [address] Bilirubin [Mass/Vol] 0.4 mg/dL Normal 0.3-1.2 [facility] Comment on above: Performed By: #### C SHEEBA, CMP #### [facility] ([id number]) [address], [address] [facility] [place] [address] Calcium [Mass/Vol] 9.6 mg/dL Normal 8.5-10.5 [facility] Comment on above: Performed By: #### Sheila ALY, CMP #### [facility] ([id number]) [address], [address] [place] [address] Chloride [Moles/Vol] 102 mmol/L Normal 98-109 [facility] Comment on above: Performed By: #### Sheila ALY, CMP #### [facility] ([id number]) [address], [address] [place] [address] CO2 [Moles/Vol] 28 mmol/L Normal 22-32 [facility] Comment on above: Performed By: #### Sheila ALY, CMP #### [facility] ([id number]) [address], [address] [place] [address] Creatinine [Mass/Vol] 0.96 mg/dL Normal 0.40-1.00 [facility] Comment on above: Result Comment: METH OD TRACEABLE TO IDMS STANDARD Performed By: #### C SHEEBA, CMP #### [facility] ([id number]) [address], [address] [place] [address] GFR/1.73 sq M.predicted among non-blacks MDRD (S/P/Bld) [Vol rate/Area] 66 mL/min/{1.73_m2} Normal >59 [facility] Comment on above: Result Comment: Reported eGFR is based on the CKD-EPI 2020 equation that does not use a race coefficient. Performed By: #### C SHEEBA, CMP #### [facility] ([id number]) [address], [address] [place] [address] Glucose [Mass/Vol] 179 mg/dL High 65-99 [facility] Comment on above: Performed By: #### C SHEEBA, CMP #### [facility] ([id number]) [address], [address] [place] [address] Potassium [Moles/Vol] 5.1 mmol/L High 3.5-5.0 [facility] Comment on above: Performed By: #### C SHEEBA, CMP #### [facility] ([id number]) [address], [address] [place] [address] Protein [Mass/Vol] 7.2 g/dL Normal 6.0-8.0 [facility] Comment on above: Performed By: #### C SHEEBA, CMP #### [facility] ([id number]) [address], [address] [place] [address] Sodium [Moles/Vol] 137 mmol/L Normal 134-146 [facility] Comment on above: Performed By: #### Sheila ALY, CMP #### [facility] ([id number]) [address] [address] [address] [place] [address] Urea nitrogen [Mass/Vol] 23 mg/dL Normal 5-27 [facility] Comment on above: Performed By: #### C SHEEBA, CMP #### [facility] ([id number]) [address] [place] [address] Lipid 1996 panelon 4 Cholesterol [Mass/Vol] 106 mg/dL Low 150 - 200 mg/dL [facility] Cholesterol in HDL [Mass/Vol] 46 mg/dL 39 - PINF mg/dL [facility] Comment on above: HDL <40 mg/dL - High Risk HDL > or = 40mg/dL- Desirable HDL >60 mg/dL - Negative Risk Cholesterol in LDL [Mass/Vol] 38 mg/dL NINF - 130 mg/dL [facility] Comment on above: LDL <100 mg/dL - Desirable LDL >160 mg/dL - High Risk Cholesterol in VLDL [Mass/Vol] 22 mg/dL 0 - 30 mg/dL [facility] Cholesterol.total/Cho lesterol in HDL [Mass ratio] 2.3 {ratio} 1.0 - 5.0 [facility] Interpretation and review of laboratory results Abnormal [facility] Triglyceride [Mass/Vol] 110 mg/dL 27 - 150 mg/dL [facility] Cholesterol [Mass/Vol] 106 mg/dL Low 150-200 [facility] Comment on above: Performed By: #### 2 4331-1, 3016-3 #### [facility] ([id number]) Formerly [facility] [address] [place] [address] Cholesterol in HDL [Mass/Vol] 46 mg/dL Normal >39 [facility] Comment on above: Result Comment: HDL <40 mg/dL - High Risk HDL > or = 40mg/dL- Desirable HDL >60 mg/dL - Negative Risk Performed By: #### 2 4331-1, 3016-3 #### [facility] ([id number]) [address], [address] [place] [address] Cholesterol in LDL [Mass/Vol] 38 mg/dL Normal <130 [facility] Comment on above: Result Comment: LDL <100 mg/dL - Desirable LDL >160 mg/dL - High Risk Performed By: #### 2 4331-1, 6-3 #### [facility] ([id number]) [address] [place] [address] Cholesterol in VLDL [Mass/Vol] 22 mg/dL Normal 0-30 [facility] Comment on above: Performed By: #### 2 4331-1, 6-3 #### [facility] ([id number]) [address], [address] [place] [address] CHOLESTEROL:HDL 2.3 Normal 1.0-5.0 [facility] Comment on above: Performed By: #### 2 4331-1, 6-3 #### [facility] ([id number]) [address], [address] [place] [address] Triglyceride [Mass/Vol] 110 mg/dL Normal 27-150 [facility] Comment on above: Performed By: #### 2 4331-1, 6-3 #### [facility] ([id number]) [address] [place] [address] TSHon 12-05-2023 TSH Qn 3.00 m[IU]/L [facility] TSH Qnon 12-05-2023 [facility] TSH 3.00 uIU/mL Normal 0.49-4.67 [facility] Comment on above: Performed By: #### 2 4331-1, 6-3 #### [facility] ([id number]) [address] [place] [address] POINT OF CARE GLUCOSEon 10-06 Glucose [Mass/Vol] 252 mg/dL Critically high 74-106 [facility] Comment on above: Performed By: #### P OCGLUC ####[facility] [address]ort[address] [place] [address]Dr. Abiel Clement PROF CHEM 8 (BAS METB)on Anion gap [Moles/Vol] 11.5 mmol/L Normal [facility] Comment on above: Performed By: #### B MP ####[facility] Eyomb[address]msr[address] [place] [address]Dr. Abiel Clement Calcium [Mass/Vol] 9.6 mg/dL Normal 8.5-10.1 [facility] Comment on above: Performed By: #### B MP ####[facility] Smizckuiag[address] [place], [place] [address]Dr. Abiel Clement Chloride [Moles/Vol] 102 mmol/L Normal 98-107 [facility] Comment on above: Performed By: #### B MP ####[facility] Cbejithiwe[address] [place], [place] [address]Dr. Abiel Clement CO2 [Moles/Vol] 30.8 mmol/L Normal 21.0-32.0 [facility] Comment on above: Performed By: #### B MP ####[facility] Mlririrlan[address] [place], [place] [address]Dr. Abiel Clement Creatinine [Mass/Vol] 0.72 mg/dL Normal 0.55-1.02 [facility] Comment on above: Performed By: #### B MP ####[facility] Uwtvlvkzej[address] [place], [place] [address]Dr. Abiel Clement EGFR-AF CZECH >60 Normal >=60 [facility] Comment on above: Performed By: #### B MP ####[facility] Abzurmvtrv[address] [place], [place] [address]Dr. Abiel Clement EGFR-NON AF CZECH >60 Normal >=60 [facility] Comment on above: Performed By: #### B MP ####[facility] Bayapggbab4[address] [place], [place] [address]Dr. Abiel Clement Glucose [Mass/Vol] 127 mg/dL Critically high 74-106 [facility] Comment on above: Performed By: #### B MP ####[facility] [address]dsxwfj[address] [place] [address]Dr. Abiel Clement Potassium [Moles/Vol] 4.3 mmol/L Normal 3.5-5.1 [facility] Comment on above: Performed By: #### B MP ####[facility] Jpionvsspy[address] [place] [address]Dr. Abiel Clement Sodium [Moles/Vol] 140 mmol/L Normal 136-145 [facility] Comment on above: Performed By: #### B MP ####[facility] N[address]yhubopz[address] [place] [address]Dr. Abiel Clement Urea nitrogen [Mass/Vol] 17.0 mg/dL Normal 7.0-18.0 [facility] Comment on above: Performed By: #### B MP ####[facility] Iyfpzolnzr[address] [place], [place] [address]Dr. Abiel Clement Urea nitrogen/Creatinine [Mass ratio] 23.6 mg/mg Normal [facility] Comment on above: Performed By: #### B MP ####[facility] Oqlquyenqm[address] [place], [place] [address]Dr. Abiel Clement CULTURE URINEon 08-07-2022 CULTURE URINE Normal [facility] Comment on above: Performed By: #### U RCX ####[facility] Ymztzvssgk[address] [place], [place] [address]Dr. Abiel Clement CBC W MANUAL DIFFon 08-05-20 22 ANISOCYTOSIS SLIGHT Normal [facility] Comment on above: Performed By: #### C BCMAN ####[facility] [address]tvkfte[address] [place] [address]Dr. Abiel Clement ATYPICAL LYMPH # Normal [facility] Comment on above: Performed By: #### C BCMAN ####[facility] Nxy[address]hmnyw[address] [place] [address]Dr. Abiel Clement ATYPICAL LYMPH % Normal [facility] Comment on above: Performed By: #### C BCMAN ####[facility] Lbnuxbwaeg[address] [place], [place] [address]Dr. Abiel Clement BAND # 0.6 103/ul Critically high 0.0-0.3 [facility] Comment on above: Performed By: #### C BCMAN ####[facility] [address]qrfokts[address] [place] [address]Dr. Abiel Clement BAND % 3 % Normal 0-5 [facility] Comment on above: Performed By: #### C BCMAN ####[facility] T[address]hectt[address] [place] [address]Dr. Abiel Clement BASOM # 0.00 103/ul Normal 0.00-0.10 [facility] Comment on above: Performed By: #### C BCMAN ####[facility] Wdzuptlwzy[address] [place], [place] [address]Dr. Abiel Clement BASOM % 0.0 % Critically low 0.2-2.0 [facility] Comment on above: Performed By: #### C BCALLY ####[facility] Iefbgynjew[address] [place], [place] [address]Dr. Abiel Clement BLAST # Normal [facility] Comment on above: Performed By: #### C BCALLY ####[facility] Ixetfgzmux[address] [place], [place] [address]Dr. Abiel Clement BLAST % Normal [facility] Comment on above: Performed By: #### C BCALLY ####[facility] Toizhckkkb[address] [place], [place] [address]Dr. Abiel Clement CORRECTED WBC Normal 4.0-11.0 [facility] Comment on above: Performed By: #### C BCMAN ####[facility] Cbbgqqoeop94[address] [place], [place] [address]Dr. Abiel Clement EOS # 0.00 103/ul Normal 0.00-0.70 [facility] Comment on above: Performed By: #### C BCMAN ####[facility] Tcizctbshz[address] [place], [place] [address]Dr. Abiel Clement EOS% 0.0 % Critically low 0.9-7.0 [facility] Comment on above: Performed By: #### C BCALLY ####[facility] [address]zb[address]15[address] [place], [place] [address]Yc. Abiel Clement HCT 34.0 % Critically low 36.0-48.0 [facility] Comment on above: Performed By: #### C ALVINO ####[facility] Yvbcgcczkt5[address] [place], [place] [address]Kb. Abiel Clement HGB 10.8 g/dl Critically low 12.0-16.0 [facility] Comment on above: Performed By: #### C ALVINO ####[facility] [address] [place] [id number]. Abiel Clement LYMPHM # 0.61 103/ul Critically low 1.20-3.80 [facility] Comment on above: Performed By: #### C ALVINO ####[facility] Spqojynknc65[address] [place] [id number]. Abiel Clement LYMPHM% 3.0 % Critically low 20.5-60.0 [facility] Comment on above: Performed By: #### C ALVINO ####[facility] [address]ryyikuy[address] [place] [id number]. Abiel Clement MCH 27.3 pg Normal 26.7-34.0 [facility] Comment on above: Performed By: #### C ALVINO ####[facility] Mwkvovvzkv60[address] [place] [id number]. Abiel Clement MCHC 31.8 g/dl Normal 29.9-35.2 [facility] Comment on above: Performed By: #### C ALVINO ####[facility] Impchaadle[address] [place] [id number]. Abiel Clement MCV 85.9 fL Normal 81.0-99.0 [facility] Comment on above: Performed By: #### C ALVINO ####[facility] Itdsiyrayw64[address] [place] [id number]. Abiel Clement METAMYELOCYTE # Normal [facility] Comment on above: Performed By: #### C ALVINO ####[facility] Aofadvznzx9394 [place] [id number]. Abiel Clement METAMYELOCYTE % Normal [facility] Comment on above: Performed By: #### C ALVINO ####[facility] Dcjoqtfewf64[address] [place], [place] [address]Ih. Abiel Clement MONOM# 1.01 103/ul Critically high 0.30-0.80 [facility] Comment on above: Performed By: #### C ALVINO ####[facility] Mnbpvcdhas8253 [place], [place] [address]Io. Abiel Clement MONOM% 5.0 % Normal 1.7-12.0 [facility] Comment on above: Performed By: #### C ALVINO ####[facility] Rwlqfqyely6[address] [place], [place] [address]Ox. Abiel Clement MPV 11.1 fL Normal 9.5-13.5 [facility] Comment on above: Performed By: #### C ALVINO ####[facility] Gokgctavjx27[address] [place] [id number]. Abiel Clement MYELOCYTE # Normal [facility] Comment on above: Performed By: #### C ALVINO ####[facility] Mezsxfujrk37[address] [place], [place] [address]Ra. Abiel Clement MYELOCYTE % Normal [facility] Comment on above: Performed By: #### C ALVINO ####[facility] Jsbyfvbtcv264[address] [place], [place] [address]Tp. Abiel Clement NRBC Normal [facility] Comment on above: Performed By: #### C ALVINO ####[facility] Qxtaldceir[address] [place] [id number]. Abiel Clement PLT 283 103/ul Normal 150-450 [facility] Comment on above: Performed By: #### C ALVINO ####[facility] Pigfisxvsw9244 [place] [id number]. Abiel Clement RBC 3.96 106/ul Critically low 4.20-5.40 [facility] Comment on above: Performed By: #### C ALVINO ####[facility] Gzubnaidhu33[address] [place], [place] [address]Ev. Abiel Clement RDW 15.4 % Critically high 11.0-15.0 [facility] Comment on above: Performed By: #### C BCMAN ####[facility] Aclbbnznvu99[address] [place] [address]Dr. Suyapaviviana Urbano SEG # 18.07 103/ul Critically high 1.40-6.50 [facility] Comment on above: Performed By: #### C BCMAN ####[facility] Gsunymdtbi7[address] [place] [address]Dr. Abiel Clement SEG % 89.0 % Critically high 43.0-75.0 [facility] Comment on above: Performed By: #### C BCALLY ####[facility] Bmbdyyrrwy4686 [place] [address]Dr. Abiel Clement WBC 20.3 103/ul Critically high 4.0-11.0 [facility] Comment on above: Performed By: #### C ALVINO ####[facility] Zomdwukbtv[address] [place], [place] [address]Dr. Abiel Clement LACTATE/LACTIC ACIDon 2021 Lactate [Moles/Vol] 2.5 mmol/L Critically high 0.4-1.9 [facility] Comment on above: Performed By: #### L ACT ####[facility] Hdlkhnyqyf[address] [place], [place] [address]Dr. Abiel Clement POINT OF CARE GLUCOSEon Glucose [Mass/Vol] 238 mg/dL Critically high 74-106 [facility] Comment on above: Performed By: #### P OCGLUC ####[facility] Mvxklwjxmq3332 [place] [address]DrKasia Clement PROF CHEM 8 (BAS METB)on Anion gap [Moles/Vol] 10.8 mmol/L Normal [facility] Comment on above: Performed By: #### B MP ####[facility] Mticamkchr0228 [place] [address]DrKasia Clement Calcium [Mass/Vol] 8.4 mg/dL Critically low 8.5-10.1 [facility] Comment on above: Performed By: #### B MP ####[facility] Pzziqhmsyz7707 [place] [phone]. Abiel Clement Chloride [Moles/Vol] 103 mmol/L Normal 98-107 [facility] Comment on above: Performed By: #### B MP ####[facility] Lqlwtqmmxa9657 [place] [phone]. Abiel Clement CO2 [Moles/Vol] 27.0 mmol/L Normal 21.0-32.0 [facility] Comment on above: Performed By: #### B MP ####[facility] Uhqbivlqhm7600 [place] [phone]. Abiel Clement Creatinine [Mass/Vol] 1.02 mg/dL Normal 0.55-1.02 [facility] Comment on above: Performed By: #### B MP ####[facility] Keopenvhlb77[address] [place] [address]Dr. Suyapaviviana Urbano EGFR-AF CZECH >60 Normal >=60 [facility] Comment on above: Performed By: #### B MP ####[facility] Lilmvjelxb169[address] [place], [place] [address]Dr. Abiel Urbano EGFR-NON AF CZECH 55 mL/min/1.73m2 Critically low >=60 [facility] Comment on above: Performed By: #### B MP ####[facility] Xtlxqlisuv18[address] [place], [place] [address]Dr. Abiel Clement Glucose [Mass/Vol] 199 mg/dL Critically high 74-106 T [facility] Comment on above: Performed By: #### B MP ####[facility] Lrplqwxfxu8121 [place] [address]Dr. Suyapaviviana Clmeent Potassium [Moles/Vol] 3.8 mmol/L Normal 3.5-5.1 [facility] Comment on above: Performed By: #### B MP ####[facility] Kbktumjcyd8970 [place] [address]Dr. Abiel Clement Sodium [Moles/Vol] 137 mmol/L Normal 136-145 [facility] Comment on above: Performed By: #### B MP ####[facility] Rkyyygpwgs0026 [place] [address]Dr. Abiel Clement Urea nitrogen [Mass/Vol] 21.0 mg/dL Critically high 7.0-18.0 [facility] Comment on above: Performed By: #### B MP ####[facility] Z[address]ebwkmpi01[address] [place], [place] [address]Dr. Abiel Clement Urea nitrogen/Creatinine [Mass ratio] 20.6 mg/mg Normal [facility] Comment on above: Performed By: #### B MP ####[facility] Fdtdrpzpvj37[address] [place], [place] [address]Dr. Abiel Clement ACETONE SERUMon 08-04-2022 ACETONE Negative Normal NEGATIVE [facility] Comment on above: Performed By: #### A CETON ####[facility] Wabdzzjzso[address] [place], [place] [address]Dr. Abiel Clement AMMONIAon 08-04-2022 Ammonia (P) [Moles/Vol] 24 umol/L Normal [facility] Comment on above: Performed By: #### A MM ####[facility] Agofvznelp[address] [place], [place] [address]Dr. Abiel Clement CBC AUTO DIFFon 08-04-2022 BASO # 0.0 103/ul Normal 0.0-0.1 [facility] Comment on above: Performed By: #### C BC ####[facility] Mqkmvhwpnv[address] [place], [place] [address]Dr. Abiel Clement Basophils/100 WBC (Bld) 0.3 % Normal 0.2-2.0 [facility] Comment on above: Performed By: #### C BC ####[facility] Urpfjxvnwv70[address] [place], [place] [address]Dr. Abiel Clement EO # 0.0 103/ul Normal 0.0-0.7 [facility] Comment on above: Performed By: #### C BC ####[facility] Spujzhebuq4925[address] [place], [place] [address]Dr. Abiel Clement Eosinophils/100 WBC (Bld) 0.4 % Critically low 0.9-7.0 [facility] Comment on above: Performed By: #### C BC ####[facility] Wawizxslot4664 [place] [address]Dr. Abiel Clement Erythrocyte distribution width (RBC) [Ratio] 15.1 % Critically high 11.0-15.0 [facility] Comment on above: Performed By: #### C BC ####[facility] Cnrygjzsum89[address] [place] [address]Dr. Abiel Clement Hematocrit (Bld) [Volume fraction] 37.7 % Normal 36.0-48.0 [facility] Comment on above: Performed By: #### C BC ####[facility] Oydumddfzg[address] [place], [place] [address]Dr. Abiel Clement Hemoglobin (Bld) [Mass/Vol] 12.4 g/dL Normal 12.0-16.0 [facility] Comment on above: Performed By: #### C BC ####[facility] Rnforccydt[address] [place], [place] [address]Dr. Abiel Clement IG # 0.02 10e3/ul Normal 0.00-0.03 [facility] Comment on above: Performed By: #### C BC ####[facility] Vzmwqqvbtt3[address] [place], [place] [address]Dr. Abiel Clement IG % 0.2 % Normal 0.0-0.5 [facility] Comment on above: Performed By: #### C BC ####[facility] Fskpqscgnc[address] [place], [place] [address]Dr. Abiel Clement LYMPH # 0.6 103/ul Critically low 1.2-3.8 [facility] Comment on above: Performed By: #### C BC ####[facility] Nooywemxze64[address] [place], [place] [address]Dr. Abiel Clement Lymphocytes/100 WBC (Bld) 6.8 % Critically low 20.5-60.0 [facility] Comment on above: Performed By: #### C BC ####[facility] Xgysloctsn[address] [place], [place] [address]Dr. Abiel Clement MANUAL DIFF REQ NO Normal [facility] Comment on above: Performed By: #### C BC ####[facility] Wjihylfwzy2674 [place] [phone]. Abiel Urbano MCH (RBC) [Entitic mass] 27.7 pg Normal 26.7-34.0 [facility] Comment on above: Performed By: #### C BC ####[facility] Bwwzgrynxo[address] [place] [phone]. Abiel Urbano MCHC (RBC) [Mass/Vol] 32.9 g/dL Normal 29.9-35.2 [facility] Comment on above: Performed By: #### C BC ####[facility] Ootexmciia16[address] [place] [phone]. Suyapaviviana Clement MCV (RBC) [Entitic vol] 84.2 fL Normal 81.0-99.0 [facility] Comment on above: Performed By: #### C BC ####[facility] Oibzdezclb[address] [place], [place] [address]Dr. Abiel Clement MONO # 0.4 103/ul Normal 0.3-0.8 [facility] Comment on above: Performed By: #### C BC ####[facility] Vptfsrprou40[address] [place] [address]Dr. Abiel Clement Monocytes/100 WBC (Bld) 4.7 % Normal 1.7-12.0 [facility] Comment on above: Performed By: #### C BC ####[facility] [address]yqmkizc[address] [place], [place] [address]Dr. Abiel Clement NEUT # 8.1 103/ul Critically high 1.4-6.5 [facility] Comment on above: Performed By: #### C BC ####[facility] Ipfdhnfanf8100 [place] [phone]. Abiel Clement Neutrophils/100 WBC (Bld) 87.6 % Critically high 43.0-75.0 [facility] Comment on above: Performed By: #### C BC ####[facility] [address]vq[address] [place], [place] [id number]. Abiel Clement Platelet mean volume (Bld) [Entitic vol] 10.5 fL Normal 9.5-13.5 [facility] Comment on above: Performed By: #### C BC ####[facility] Shlolopesb75[address] [place], [place] [address]Vh. Abiel Clement PLT 286 103/ul Normal 150-450 [facility] Comment on above: Performed By: #### C BC ####[facility] Zkjcgzjrgj8601 [place], [place] [address]Im. Abiel Clement RBC 4.48 106/ul Normal 4.20-5.40 [facility] Comment on above: Performed By: #### C BC ####[facility] Vpjxcgagos7424 [place], [place] [address]Ai. Abiel Clement WBC 9.2 103/ul Normal 4.0-11.0 [facility] Comment on above: Performed By: #### C BC ####[facility] Kmcdvyzqvb9573 [place], [place] [address]Cy. Abiel Clement CT ABD/PELV W CONon 08-04-20 CT ABD/PELV W CON Normal [facility] CT HEAD WO CONon 08-04-2022 CT HEAD WO CON Normal [facility] CULTURE BLOODon 08-04-2022 Microscopic examination of blood, culture Culture Observations: NO GROWTH AT 5 DAYS. Normal [facility] Comment on above: Performed By: #### B LDCX1 ####[facility] Xttcoozuwl[address] [place] [phone]. Abiel Clement Performed By: #### B LDCX2 ####[facility] Ssouawshex[address] [place] [phone]. Abiel Clement [facility]08 SARS-CoV-2 (COVID-19) RNA CLARIBEL+probe Ql (Unsp spec) Not detected Normal NOT DETECTED [facility] Comment on above: Result Comment: When [...] for this test is supported by the [place] of [employer] and Human Service's declaration that [...] be used). Performed By: #### C VDTBH ####[facility] Ozrrkuausu[address] [place], [place] [address]Dr. Abiel Clement DRUG SCREEN RAPID (URINE)on 08-04-2022 AMP Negative Normal NEGATIVE [facility] Comment on above: Performed By: #### D RUGRPD ####[facility] Slnssjvmca[address] [place], [place] [address]Dr. Abiel Clement BAR Negative Normal NEGATIVE [facility] Comment on above: Performed By: #### D RUGRPD ####[facility] Fsscuwttyz129[address] [place], [place] [address]Dr. Suyapaviviana [facility] BUP Negative Normal NEGATIVE [facility] Comment on above: Performed By: #### D RUGRPD ####[facility] Irbgonamcc024[address] [place], [place] [address]Dr. Abiel Clement BZO Negative Normal NEGATIVE [facility] Comment on above: Performed By: #### D RUGRPD ####[facility] Peqymndbjg924[address] [place], [place] [address]Dr. Suyapaviviana Clement CAROLINE Negative Normal NEGATIVE [facility] Comment on above: Performed By: #### D RUGRPD ####[facility] Kdceowhoyo9[address] [place], [place] [address]Dr. [facility] CUT-OFFS SEE BELOW Normal [facility] Comment on above: Result Comment: AMP (Amphetamine): 500ng/mL, BAR (Barbituates): 200 ng/mL, BZO (Benzodiazepines): 150 ng/mL, BUP (Buprenorphine): 10 ng/mL, CAROLINE (Cocaine): 150 ng/mL, mAMP (Methamphetamine): 500 ng/mL, MTD (Methadone): 200 ng/mL, OPI (Opiates): 100 ng/mL, OXY (Oxycodone): 100 ng/mL, PCP (Phencyclidine): 25 ng/mL, PPX (Propoxyphene): 300 ng/mL, THC (Cannabinoids): 50 ng/mL, TCA (Trycyclic Antidepressants): 300 ng/mL Performed By: #### D RUGRPD ####[facility] Zwhenwqfda62[address] [place], [place] [address]Dr. Abiel Clement DRUG CUT HEADER DRUG CLASS TEST SYSTEM CUT-OFF CONCENTRATIONS ARE FOLLOWS: Normal [facility] Comment on above: Performed By: #### D RUGRPD ####[facility] Gifteimzmy[address] [place], [place] [address]Dr. Abiel Clement mAMP Negative Normal NEGATIVE [facility] Comment on above: Performed By: #### D RUGRPD ####[facility] Apnpmszjdt2517[address] [place], [place] [address]Dr. Abiel Clement MTD Negative Normal NEGATIVE [facility] Comment on above: Performed By: #### D RUGRPD ####[facility] Oswubdbajn28[address] [place], [place] [address]Dr. Abiel Clement OPI Positive Abnormal NEGATIVE [facility] Comment on above: Performed By: #### D RUGRPD ####[facility] Hsszefhoyt[address] [place], [place] [address]Dr. Abiel Clement OXY Negative Normal NEGATIVE [facility] Comment on above: Performed By: #### D RUGRPD ####[facility] Advixptcgl5729[address] [place], [place] [address]Dr. Abiel Clement PCP Negative Normal NEGATIVE [facility] Comment on above: Performed By: #### D RUGRPD ####[facility] Lglkkawkqr490[address] [place], [place] [address]Dr. Abiel Clement PPX Negative Normal NEGATIVE [facility] Comment on above: Performed By: #### D RUGRPD ####[facility] Tyxwoyjvqy[address] [place], [place] [address]Dr. Abiel Clement TCA Negative Normal NEGATIVE [facility] Comment on above: Performed By: #### D RUGRPD ####[facility] [address] [place] [address]Dr. Abiel Clement THC Negative Normal NEGATIVE [facility] Comment on above: Performed By: #### Jero IBRAHIM ####[facility] Nuqqryzabp[address] [place] [address]Dr. Abiel Clement ER URINE PROFILEon 2 Bilirubin Ql (U) Negative Normal NEGATIVE [facility] Comment on above: Performed By: #### NESSA ACE ####[facility] Zidqphqvpc449[address] [place], [place] [address]Dr. Abiel Clement Clarity (U) CLEAR Normal CLEAR [facility] Comment on above: Performed By: #### NESSA ACE ####[facility] Agtslfkuzs758[address] [place], [place] [address]Dr. Abiel Clement Color (U) LT. YELLOW Normal YELLOW [facility] Comment on above: Performed By: #### NESSA ACE ####[facility] Qaxdbyhnoe729[address] [place], [place] [address]Dr. Abiel Clement ERUAHD A micrscopic examination will be performed if indicated. Normal [facility] Comment on above: Performed By: #### NESSA ACE ####[facility] Eigzgythwl188[address] [place], [place] [address]Dr. Abiel Clement Glucose Ql (U) Negative Normal NEGATIVE The [facility] Comment on above: Performed By: #### NESSA ACE ####[facility] Qojezsxozd4700[address] [place], [place] [address]Dr. Abiel Clement Hemoglobin Ql (U) SMALL Abnormal NEGATIVE The [facility] Comment on above: Performed By: #### NESSA ACE ####[facility] Qzjlqfzmra20[address] [place], [place] [address]Dr. Abiel Clement Ketones Ql (U) Negative Normal NEGATIVE [facility] Comment on above: Performed By: #### NESSA ACE ####[facility] Hgkjwaumzx808[address] [place], [place] [address]Dr. Abiel Clement LEUKOCYTES LARGE Abnormal NEGATIVE [facility] Comment on above: Performed By: #### CARLOS ACERO ####[facility] Vqudmvhauv25[address] [place] [address]Dr. Abiel Clement Nitrite Ql (U) Negative Normal NEGATIVE [facility] Comment on above: Performed By: #### CARLOS ACERO ####[facility] Omxjkomxjs95[address] [place] [address]DrKasia Clement pH (U) 5.0 [pH] Normal 5-9 [facility] Comment on above: Performed By: #### CARLOS ACERO ####[facility] Xukenrcixn307[address] [place], [place] [address]DrKasia Clement SPEC GRAVITY 1.020 Normal 1.005-<=1.02 5 [facility] Comment on above: Performed By: #### CARLOS ACERO ####[facility] Nbgfpafcgg2533[address] [place], [place] [address]Dr. Abiel Clement UA PROTEIN Negative Normal NEGATIVE/ TRACE [facility] Comment on above: Performed By: #### CARLOS ACERO ####[facility] Bgufbuxxec524[address] [place], [place] [address]DrKasia Clement UR MICRO IND INDICATED Normal [facility] Comment on above: Performed By: #### CARLOS ACERO ####[facility] Ckroaeibit[address] [place], [place] [address]Dr. Abiel Clement Urobilinogen Qn (U) 0.2 {Keegan'U}/dL Normal 0.2 - 1. 0 [facility] Comment on above: Performed By: #### CARLOS ACERO ####[facility] Axknisgpiv350[address] [place], [place] [address]DrKasia Clement ETHANOL (BLD ALC)on 08-04-20 ALC NOTE NOTE: 80 mg/dl is th e legal limit for a blood alcohol level Normal [facility] Comment on above: Performed By: #### Krytsle TH ####[facility] Zmnkzukqgu589[address] [place], [place] [address]Dr. Abiel Clement Ethanol [Mass/Vol] mg/dL Normal [facility] Comment on above: Performed By: #### E TH ####[facility] Xhdnkooqhb4428[address] [place], [place] [address]Dr. Abiel Clement INFLUENZA A AND B AGon 08-04 INFLUANEGH SEE BELOW Normal [facility] Comment on above: Result Comment: Nega tive for Flu A protein angiten. Infection due to Flu A cannot be ruled out. Flu A angiten in the sample may be below the detection limit of the test. Performed By: #### I NFLUAB ####[facility] Iradbztmsz723[address] [place], [place] [address]Dr. Abiel Clement INFLUBNEGH SEE BELOW Normal [facility] Comment on above: Result Comment: Nega tive for Flu B protein antigen. Infection due to Flu B cannot be ruled out. Flu B antigen in the sample may be below the detection limit of the test. Performed By: #### I NFLUAB ####[facility] Tqnwntbiab8[address] [place], [place] [address]Dr. Abiel Clement INFLUENZA A AG Negative Normal NEGATIVE SEE COMMENT [facility] Comment on above: Performed By: #### I NFLUAB ####[facility] Ipmockbhlu[address] [place], [place] [address]Dr. Abiel Clement INFLUENZA B AG Negative Normal NEGATIVE SEE COMMENT [facility] Comment on above: Performed By: #### I NFLUAB ####[facility] Kqayrdpxhr300[address] [place], [place] [address]Dr. Abiel Clement INTERNAL CONTROLS Within Normal Limits Normal Wi thin Normal Limits [facility] Comment on above: Performed By: #### I NFLUAB ####[facility] Eleboepuwq4589[address] [place], [place] [address]Dr. Abiel Clement LACTATE/LACTIC ACIDon 2021 Lactate [Moles/Vol] 2.0 mmol/L Critically high 0.4-1.9 [facility] Comment on above: Performed By: #### L ACT ####[facility] Vutscesbuu56[address] [place], [place] [address]Dr. Abiel Clement LIPASEon 08-04-2022 Lipase [Catalytic activity/Vol] 28.0 U/L Critically low 73.0-393.0 [facility] Comment on above: Performed By: #### L IPA, CMP, HSTROPN, TSH ####[facility] P[address]xf[address] [place] [address]Dr. Suyapaviviana Clement PH VENOUS BLOODon 08-04-2022 PCO2 VENOUS 30.0 mmHg Critically low 40.0-52.0 [facility] Comment on above: Performed By: #### P HVEN ####[facility] Egakmebamp[address] [place] [address]Dr. Suyapaviviana Clement pH VENOUS 7.509 Critically high 7.330-7.430 [facility] Comment on above: Performed By: #### P HVEN ####[facility] Droybhvqja[address] [place] [address]Dr. Abiel Clement POINT OF CARE GLUCOSEon 07-08 Glucose [Mass/Vol] 230 mg/dL Critically high 74-106 [facility] Comment on above: Performed By: #### P OCGLUC ####[facility] Ftxxcehtdg4[address] [place] [address]Dr. Abiel Clement PROF 14(COMP METB)on 022 Albumin [Mass/Vol] 3.0 g/dL Critically low 3.4-5.0 [facility] Comment on above: Performed By: #### L IPA, CMP, HSTROPN, TSH ####[facility] Jalmnrqcut[address] [place] [address]Dr. Abiel Clement Albumin/Globulin [Mass ratio] 0.7 {ratio} Normal [facility] Comment on above: Performed By: #### L IPA, CMP, HSTROPN, TSH ####[facility] Mcyxbtqwuz[address] [place] [address]Dr. Abiel Clement ALP [Catalytic activity/Vol] 196 U/L Critically high 46-116 [facility] Comment on above: Performed By: #### L IPA, CMP, HSTROPN, TSH ####[facility] Wzrayqvmct[address] [place] [address]Dr. Abiel Clement ALT [Catalytic activity/Vol] 21 U/L Normal 14-59 [facility] Comment on above: Performed By: #### L IPA, CMP, HSTROPN, TSH ####[facility] Veplozmapx[address] [place] [address]Dr. Abiel Clement Anion gap [Moles/Vol] 12.1 mmol/L Normal [facility] Comment on above: Performed By: #### L IPA, CMP, HSTROPN, TSH ####[facility] Rarfikldhe[address] [place] [address]Dr. Abiel Clement AST [Catalytic activity/Vol] 29 U/L Normal 15-37 [facility] Comment on above: Performed By: #### L IPA, CMP, HSTROPN, TSH ####[facility] Hkwqohdhha[address] [place] [address]Dr. Abiel Clement Bilirubin [Mass/Vol] 0.3 mg/dL Normal 0.2-1.0 [facility] Comment on above: Performed By: #### L IPA, CMP, HSTROPN, TSH ####[facility] Greuujmwuo[address] [place] [address]Dr. Abiel Clement Calcium [Mass/Vol] 8.9 mg/dL Normal 8.5-10.1 [facility] Comment on above: Performed By: #### L IPA, CMP, HSTROPN, TSH ####[facility] M[address]ut[address]wojw[address] [place] [address]Dr. Abiel Clement Chloride [Moles/Vol] 102 mmol/L Normal 98-107 [facility] Comment on above: Performed By: #### L IPA, CMP, HSTROPN, TSH ####[facility] Rujbdzhhae4[address] [place] [address]Dr. Abiel Clement CO2 [Moles/Vol] 27.1 mmol/L Normal 21.0-32.0 [facility] Comment on above: Performed By: #### L IPA, CMP, HSTROPN, TSH ####[facility] Mypgklqgvd[address] [place] [address]Dr. Abiel Clement Creatinine [Mass/Vol] 0.83 mg/dL Normal 0.55-1.02 [facility] Comment on above: Performed By: #### L IPA, CMP, HSTROPN, TSH ####[facility] Jxzabnbykx[address] [place] [address]Dr. Abiel Clement EGFR-AF CZECH >60 Normal >=60 [facility] Comment on above: Performed By: #### L IPA, CMP, HSTROPN, TSH ####[facility] Hsewueqxep[address] [place] [address]Dr. Abiel Clement EGFR-NON AF CZECH >60 Normal >=60 [facility] Comment on above: Performed By: #### L IPA, CMP, HSTROPN, TSH ####[facility] Uzkwtmemab25[address] [place] [address]Dr. Abiel Clement Globulin (S) [Mass/Vol] 4.2 g/dL Normal [facility] Comment on above: Performed By: #### L IPA, CMP, HSTROPN, TSH ####[facility] Oknrzskwco[address] [place] [address]Dr. Abiel Clement Glucose [Mass/Vol] 132 mg/dL Critically high 74-106 [facility] Comment on above: Performed By: #### L IPA, CMP, HSTROPN, TSH ####[facility] Efqcxixedj7954 [place] [address]Dr. Abiel Clement Potassium [Moles/Vol] 4.2 mmol/L Normal 3.5-5.1 [facility] Comment on above: Performed By: #### L IPA, CMP, HSTROPN, TSH ####[facility] Cyixzrzyun[address] [place] [address]Dr. Abiel Clement Protein [Mass/Vol] 7.2 g/dL Normal 6.4-8.2 [facility] Comment on above: Performed By: #### L IPA, CMP, HSTROPN, TSH ####[facility] Rsmghglgmt[address] [place] [address]Dr. Abiel Clement Sodium [Moles/Vol] 137 mmol/L Normal 136-145 [facility] Comment on above: Performed By: #### L IPA, CMP, HSTROPN, TSH ####[facility] Veenjnlkfw5[address] [place] [address]Dr. Abiel Clement Urea nitrogen [Mass/Vol] 18.0 mg/dL Normal 7.0-18.0 [facility] Comment on above: Performed By: #### L IPA, CMP, HSTROPN, TSH ####[facility] Njwxlfhuyy3047 [place] [address]Dr. Abiel Clement Urea nitrogen/Creatinine [Mass ratio] 21.7 mg/mg Normal [facility] Comment on above: Performed By: #### L IPA, CMP, HSTROPN, TSH ####[facility] Lzxmwlfnva[address] [place], [place] [address]Dr. Abiel Clement PROTIMEon 08-04-2022 INR Coag (PPP) [Relative time] 1.05 {INR} Normal [facility] Comment on above: Performed By: #### P TT, PT ####[facility] Tbmzzcweld[address] [place], [place] [address]Dr. Abiel Clement INR GUIDELINES SEE BELOW Normal [facility] Comment on above: Result Comment: GELY RED INR: 2.0 - 3.0 CONDITIONS NOT LISTED BELOW 2.5 - 3.5 FOR PROSTHETIC HEART VALVE REPLACEMENT 2.5 - 3.5 RECURRENT THROMBOSIS Performed By: #### P TT, PT ####[facility] Nwfwxmzdgk23[address] [place], [place] [address]Dr. Abiel Clement PT Coag (PPP) [Time] 11.3 s Normal 9.0-11.6 [facility] Comment on above: Performed By: #### P TT, PT ####[facility] Gmzxefnrao[address] [place], [place] [address]Dr. Abiel Clement PTTon 08-04-2022 aPTT Coag (Bld) [Time] 25.2 s Normal 22.3-36.2 [facility] Comment on above: Performed By: #### P TT, PT ####[facility] Ruyqszwuih[address] [place], [place] [address]Dr. Abiel Clement TROPONIN, HIGH SENSITIVITYon 08-04-2022 HSTROP 5.0 pg/mL Normal 4.0-51.3 [facility] Comment on above: Result Comment: CUT- OFF POINTS HAVE BEEN ESTABLISHED BASED ON THE FOURTH UNIVERSAL DEFINITIONS OF MYOCARDIALINFARCTION. THE UPPER REFERENCE LIMIT (URL) OF TROPONIN, DEFINED THE 99TH PERCENTILE OFcTnI DISTRIBUTION IN A REFERENCE POPULATION, HAS BEEN CONFIRMED THE DECISION THRESHOLDFOR [place] DIAGNOSIS. Performed By: #### L IPA, CMP, HSTROPN, TSH ####[facility] Cbfstrzllz[address] [place] [address]Dr. Abiel Clement TSHon 08-04-2022 TSH 1.695 uIU/mL Normal 0.358-3.740 [facility] Comment on above: Performed By: #### L IPA, CMP, HSTROPN, TSH ####[facility] Ejzslohlzq[address] [place] [address]Dr. Abiel Urbano URINE MICROSCOPIC ONLYon BACTERIA MODERATE Abnormal NONE SEEN [facility] Comment on above: Performed By: #### Krystle GERMAN UMICRO ####[facility] Vpbudkcnpp[address] [place] [address]Dr. Suyapaviviana Clement Bacteria identified Cx Nom (U) INDICATED Normal [facility] Comment on above: Performed By: #### Krystle GERMAN UMICRO ####[facility] Lojenavecr[address] [place] [address]Dr. Abiel Clement CAST NONE SEEN Normal NONE SEEN [facility] Comment on above: Performed By: #### Krystle GERMAN UMICRO ####[facility] Sbnfptcmiy[address] [place] [address]Dr. Abiel Clement Crystals LM Nom (Urine sed) NONE SEEN Normal NONE SEEN [facility] Comment on above: Performed By: #### Krystle GERMAN UMICRO ####[facility] Bqanrxwuns6274 [place] [address]Dr. Abiel Clement Epithelial cells LM Ql (Urine sed) FEW Abnormal NONE SEEN /RARE [facility] Comment on above: Performed By: #### NESSA ACE ####[facility] Sxogltmkwj2397 [place] [address]Dr. Abiel Clement MUCOUS NONE SEEN Normal NONE SEEN [facility] Comment on above: Performed By: #### NESSA ACE ####[facility] Byqoitfffk5081 [place] [address]Dr. Abiel Clement RBC 2-5 Abnormal 0-2 [facility] Comment on above: Performed By: #### NESSA ACE ####[facility] Wktqsqxfge0242 [place] [address]Dr. Abiel Urbano WBC 10-20 Abnormal NONE SEEN [facility] Comment on above: Performed By: #### NESSA ACE ####[facility] Mguuugzpor8[address] [place], [place] [address]Dr. Abiel Clement XR CHEST 1 Von 08-04-2022 XR CHEST 1 V Normal [facility] XR FOOT RT MIN 3 VIEWSon XR FOOT RT MIN 3 VIEWS Normal [facility] CBC AUTO DIFFon 06-03-2022 BASO # 0.0 103/ul Normal 0.0-0.1 [facility] Comment on above: Performed By: #### C BC ####[facility] Miufisknux23[address] [place], [place] [address]Dr. Abiel Clement Basophils/100 WBC (Bld) 0.5 % Normal 0.2-2.0 [facility] Comment on above: Performed By: #### C BC ####[facility] Xsijnrioug939[address] [place], [place] [address]Dr. Abiel Clement EO # 0.3 103/ul Normal 0.0-0.7 [facility] Comment on above: Performed By: #### C BC ####[facility] Iknvilbvjn[address] [place], [place] [address]Dr. Suyapaviviana Urbano Eosinophils/100 WBC (Bld) 3.5 % Normal 0.9-7.0 [facility] Comment on above: Performed By: #### C BC ####[facility] Zlezydyswi[address] [place], [place] [address]Dr. Abiel Clement Erythrocyte distribution width (RBC) [Ratio] 13.7 % Normal 11.0-15.0 [facility] Comment on above: Performed By: #### C BC ####[facility] Xhcrmorigh8418 [place] [address]Dr. Abiel Clement Hematocrit (Bld) [Volume fraction] 34.2 % Critically low 36.0-48.0 [facility] Comment on above: Performed By: #### C BC ####[facility] Ucoqvawsxv80[address] [place], [place] [address]Dr. Abiel Clement Hemoglobin (Bld) [Mass/Vol] 10.5 g/dL Critically low 12.0-16.0 [facility] Comment on above: Performed By: #### C BC ####[facility] Wbidemgrtg7[address] [place], [place] [address]Dr. Suyapaviviana Clement IG # 0.02 10e3/ul Normal 0.00-0.03 [facility] Comment on above: Performed By: #### C BC ####[facility] Agqudvanaw8155[address] [place], [place] [address]Dr. Abeil Clement IG % 0.3 % Normal 0.0-0.5 [facility] Comment on above: Performed By: #### C BC ####[facility] Amrvruqpxj107[address] [place], [place] [address]DrKasia Abiel Clement LYMPH # 1.4 103/ul Normal 1.2-3.8 [facility] Comment on above: Performed By: #### C BC ####[facility] Ixzccxpsyk[address] [place], [place] [address]DrKasia Abiel Clement Lymphocytes/100 WBC (Bld) 18.5 % Critically low 20.5-60.0 [facility] Comment on above: Performed By: #### C BC ####[facility] Cyyjbovbdd1867[address] [place], [place] [address]DrKasia Abiel Urbano MANUAL DIFF REQ NO Normal [facility] Comment on above: Performed By: #### C BC ####[facility] Zhokimjifw7024[address] [place], [place] [address]DrKasia Clement MCH (RBC) [Entitic mass] 27.8 pg Normal 26.7-34.0 [facility] Comment on above: Performed By: #### C BC ####[facility] Btrcueoezr5272 [place] [address]Dr. Abiel Urbano MCHC (RBC) [Mass/Vol] 30.7 g/dL Normal 29.9-35.2 [facility] Comment on above: Performed By: #### C BC ####[facility] Ihfhxkfwhg43[address] [place], [place] [address]Dr. Abiel Clement MCV (RBC) [Entitic vol] 90.5 fL Normal 81.0-99.0 [facility] Comment on above: Performed By: #### C BC ####[facility] Hfmipikqzw[address] [place], [place] [address]Dr. Abiel Clement MONO # 0.7 103/ul Normal 0.3-0.8 [facility] Comment on above: Performed By: #### C BC ####[facility] Epdxysgtoe749[address] [place], [place] [address]Dr. Abiel Clement Monocytes/100 WBC (Bld) 8.5 % Normal 1.7-12.0 [facility] Comment on above: Performed By: #### C BC ####[facility] Kjreilxytd6[address] [place], [place] [address]Dr. Abiel Clement NEUT # 5.2 103/ul Normal 1.4-6.5 [facility] Comment on above: Performed By: #### C BC ####[facility] Erhqlmlwej9989[address] [place], [place] [address]Dr. Abiel Clement Neutrophils/100 WBC (Bld) 68.7 % Normal 43.0-75.0 [facility] Comment on above: Performed By: #### C BC ####[facility] Vqmpuajlad9[address] [place], [place] [address]DrKasia Clement Platelet mean volume (Bld) [Entitic vol] 11.0 fL Normal 9.5-13.5 [facility] Comment on above: Performed By: #### C BC ####[facility] Bkwxbtspyr18[address] [place], [place] [address]Dr. Abiel Clement PLT 249 103/ul Normal 150-450 [facility] Comment on above: Performed By: #### C BC ####[facility] Fvsycahntp026[address] [place] [address]Dr. Abiel Clement RBC 3.78 106/ul Critically low 4.20-5.40 [facility] Comment on above: Performed By: #### C BC ####[facility] Vimqjfdmcr8[address] [place] [address]Dr. Abiel Clement WBC 7.6 103/ul Normal 4.0-11.0 [facility] Comment on above: Performed By: #### C BC ####[facility] Vuqbygxxjm7058 [place] [address]Dr. Abiel Urbano POINT OF CARE GLUCOSEon 05-07 Glucose [Mass/Vol] 84 mg/dL Normal 74-106 [facility] Comment on above: Performed By: #### P OCGLUC ####[facility] Nhnqkgizyr3997 [place] [address]Dr. Abiel Clement Glucose [Mass/Vol] 49 mg/dL Critically low 74-106 [facility] Comment on above: Result Comment: Will Repeat Test Performed By: #### P OCGLUC ####[facility] Vksluxqibi3633 [place] [address]Dr. Abiel Clement Glucose [Mass/Vol] 182 mg/dL Critically high 74-106 T [facility] Comment on above: Performed By: #### P OCGLUC ####[facility] Nequccjnxx7705 [place] [address]Dr. Abiel Urbano PROF CHEM 8 (BAS METB)on Anion gap [Moles/Vol] 8.5 mmol/L Normal [facility] Comment on above: Performed By: #### B MP ####[facility] Ucdhynoahj0010 [place] [address]Dr. Abiel Clement Calcium [Mass/Vol] 9.2 mg/dL Normal 8.5-10.1 [facility] Comment on above: Performed By: #### B MP ####[facility] Xmbmxyiopj1827 [place] [id number]. Abiel Clement Chloride [Moles/Vol] 99 mmol/L Normal 98-107 [facility] Comment on above: Performed By: #### B MP ####[facility] Vutuhgsaxt7909 [place] [address]Dr. Abiel Clement CO2 [Moles/Vol] 29.5 mmol/L Normal 21.0-32.0 [facility] Comment on above: Performed By: #### B MP ####[facility] Qvvdyhrzeq6255 [place] [address]Dr. Abiel Urbano Creatinine [Mass/Vol] 0.97 mg/dL Normal 0.55-1.02 [facility] Comment on above: Performed By: #### B MP ####[facility] Mlnwonaxiz8360 [place] [address]Dr. Suyapaviviana Urbano EGFR-AF CZECH >60 Normal >=60 [facility] Comment on above: Performed By: #### B MP ####[facility] Tyhtrfrpdr9666 [place] [address]Dr. Abiel Urbano EGFR-NON AF CZECH 58 mL/min/1.73m2 Critically low >=60 [facility] Comment on above: Performed By: #### B MP ####[facility] Qzvrtdofsf4887 [place] [address]Dr. Suyapaviviana Urbano Glucose [Mass/Vol] 193 mg/dL Critically high 74-106 T [facility] Comment on above: Performed By: #### B MP ####[facility] Ghexqgadvh8848 [place] [address]Dr. Abiel Clement Potassium [Moles/Vol] 4.0 mmol/L Normal 3.5-5.1 [facility] Comment on above: Performed By: #### B MP ####[facility] Gogvdseddc8452 [place] [address]Dr. Abiel Clement Sodium [Moles/Vol] 133 mmol/L Critically low 136-145 [facility] Comment on above: Performed By: #### B MP ####[facility] Epdqtjonjt4475 [place] [address]Dr. Abiel Clement Urea nitrogen [Mass/Vol] 20.0 mg/dL Critically high 7.0-18.0 [facility] Comment on above: Performed By: #### B MP ####[facility] Vzgenztndf1539 [place] [address]Dr. Abiel Clement Urea nitrogen/Creatinine [Mass ratio] 20.6 mg/mg Normal [facility] Comment on above: Performed By: #### B MP ####[facility] Dbpwmqkawi20[address] [place], [place] [address]Dr. Abiel Clement POINT OF CARE GLUCOSEon 05-07 Glucose [Mass/Vol] 62 mg/dL Critically low 74-106 [facility] Comment on above: Performed By: #### P OCGLUC ####[facility] Ztrsevgbze97[address] [place], [place] [address]Dr. Abiel Clement Glucose [Mass/Vol] 75 mg/dL Normal 74-106 [facility] Comment on above: Performed By: #### P OCGLUC ####[facility] Tgkfxsimnb439[address] [place], [place] [address]Dr. Abiel Clement Glucose [Mass/Vol] 83 mg/dL Normal 74-106 [facility] Comment on above: Performed By: #### P OCGLUC ####[facility] Yjlbvtyirx7801[address] [place], [place] [address]Dr. Abiel Clement Glucose [Mass/Vol] 107 mg/dL Critically high 74-106 [facility] Comment on above: Performed By: #### P OCGLUC ####[facility] Uvzzuubjuu623[address] [place], [place] [address]Dr. Abiel Clement Glucose [Mass/Vol] 140 mg/dL Critically high 74-106 [facility] Comment on above: Performed By: #### P OCGLUC ####[facility] Vkfjydcpaf26[address] [place], [place] [address]Dr. Abiel Clement CBC AUTO DIFFon 06-01-2022 BASO # 0.0 103/ul Normal 0.0-0.1 [facility] Comment on above: Performed By: #### C BC ####[facility] Eoziyjqfbx5291 [place] [id number]. Abiel Clement Basophils/100 WBC (Bld) 0.3 % Normal 0.2-2.0 [facility] Comment on above: Performed By: #### C BC ####[facility] Ojzetpnmvz3837 [place] [phone]. Abiel Clement EO # 0.2 103/ul Normal 0.0-0.7 [facility] Comment on above: Performed By: #### C BC ####[facility] Xgpdnynrgj80[address] [place], [place] [id number]. Abiel Clement Eosinophils/100 WBC (Bld) 1.9 % Normal 0.9-7.0 [facility] Comment on above: Performed By: #### C BC ####[facility] Jegcvdhlxx5129[address] [place], [place] [address]Dr. Abiel Clement Erythrocyte distribution width (RBC) [Ratio] 13.8 % Normal 11.0-15.0 [facility] Comment on above: Performed By: #### C BC ####[facility] Rdiqxzbfbr023[address] [place], [place] [address]Dr. Abiel Clement Hematocrit (Bld) [Volume fraction] 37.7 % Normal 36.0-48.0 [facility] Comment on above: Performed By: #### C BC ####[facility] Phuxxxlgmg5037 [place] [phone]. Abiel Clement Hemoglobin (Bld) [Mass/Vol] 11.7 g/dL Critically low 12.0-16.0 [facility] Comment on above: Performed By: #### C BC ####[facility] Fzaqwlcntj[address] [place], [place] [address]Dr. Abiel Clement IG # 0.03 10e3/ul Normal 0.00-0.03 [facility] Comment on above: Performed By: #### C BC ####[facility] Ptdsevltuj7964[address] [place], [place] [id number]. Abiel Clement IG % 0.3 % Normal 0.0-0.5 [facility] Comment on above: Performed By: #### C BC ####[facility] Hbmepemwek1576 [place] [phone]. Abiel Urbano LYMPH # 1.1 103/ul Critically low 1.2-3.8 The [facility] Comment on above: Performed By: #### C BC ####[facility] Cfqpneqmum6093 [place] [phone]. Abiel Urbano Lymphocytes/100 WBC (Bld) 12.0 % Critically low 20.5-60.0 [facility] Comment on above: Performed By: #### C BC ####[facility] Eudzdclbob3736 [place] [phone]. Suyapaviviana Clement MANUAL DIFF REQ NO Normal [facility] Comment on above: Performed By: #### C BC ####[facility] Coujupvjsr8165 [place] [phone]. Abiel Urbano MCH (RBC) [Entitic mass] 27.9 pg Normal 26.7-34.0 [facility] Comment on above: Performed By: #### C BC ####[facility] Nljhyqfwqq2805 [place] [phone]. Abiel Clement MCHC (RBC) [Mass/Vol] 31.0 g/dL Normal 29.9-35.2 [facility] Comment on above: Performed By: #### C BC ####[facility] Llwjzkoxml4676 [place] [phone]. Abiel Clement MCV (RBC) [Entitic vol] 89.8 fL Normal 81.0-99.0 [facility] Comment on above: Performed By: #### C BC ####[facility] Zuccubydtj1540 [place] [phone]. Abiel Urbano MONO # 0.7 103/ul Normal 0.3-0.8 [facility] Comment on above: Performed By: #### C BC ####[facility] Bsdvcfuoek6784 [place] [phone]. Suyapaviviana Clement Monocytes/100 WBC (Bld) 8.0 % Normal 1.7-12.0 [facility] Comment on above: Performed By: #### C BC ####[facility] Kfjnftzcjy2555 [place] [phone]. Abiel Clement NEUT # 6.9 103/ul Critically high 1.4-6.5 [facility] Comment on above: Performed By: #### C BC ####[facility] Dlngxfoqtg9749 [place] [phone]. Abiel Clement Neutrophils/100 WBC (Bld) 77.5 % Critically high 43.0-75.0 [facility] Comment on above: Performed By: #### C BC ####[facility] Kspxvuzbme4694 [place] [phone]. Abiel Clement Platelet mean volume (Bld) [Entitic vol] 11.1 fL Normal 9.5-13.5 [facility] Comment on above: Performed By: #### C BC ####[facility] Vvfuesdysp9699 [place] [address]Dr. Abiel Clement PLT 276 103/ul Normal 150-450 [facility] Comment on above: Performed By: #### C BC ####[facility] Xcwidrtgnh9566 [place] [address]Dr. Abiel Clement RBC 4.20 106/ul Normal 4.20-5.40 [facility] Comment on above: Performed By: #### C BC ####[facility] Fmctiaavsy2848 [place] [phone]. Abiel Clement WBC 8.9 103/ul Normal 4.0-11.0 [facility] Comment on above: Performed By: #### C BC ####[facility] Xaektlfzap4612 [place] [phone]. Abiel Clement POINT OF CARE GLUCOSEon 05-07 Glucose [Mass/Vol] 121 mg/dL Critically high 74-106 [facility] Comment on above: Performed By: #### P OCGLUC ####[facility] Ajymtuqesl2775 [place] [phone]. Abiel Clement Glucose [Mass/Vol] 303 mg/dL Critically high 74-106 [facility] Comment on above: Performed By: #### P OCGLUC ####[facility] Fywftbzrno8139 [place] [address]Dr. Abiel Clement PROF 14(COMP METB)on 022 Albumin [Mass/Vol] 2.8 g/dL Critically low 3.4-5.0 [facility] Comment on above: Performed By: #### C MP ####[facility] Kqbzkarroo4145 [place] [address]Dr. Abiel Clement Albumin/Globulin [Mass ratio] 0.7 {ratio} Normal [facility] Comment on above: Performed By: #### C MP ####[facility] Disvakznrk4531 [place] [address]Dr. Abiel Clement ALP [Catalytic activity/Vol] 174 U/L Critically high 46-116 [facility] Comment on above: Performed By: #### C MP ####[facility] Gpgdvxezsw18[address] [place], [place] [address]Dr. Abiel Clement ALT [Catalytic activity/Vol] 14 U/L Normal 14-59 [facility] Comment on above: Performed By: #### C MP ####[facility] Grhasbuqsw47[address] [place], [place] [address]Dr. Abiel Clement Anion gap [Moles/Vol] 14.2 mmol/L Normal [facility] Comment on above: Performed By: #### C MP ####[facility] Bkzcxoksyz750[address] [place], [place] [address]Dr. Abiel Clement AST [Catalytic activity/Vol] 13 U/L Critically low 15-37 [facility] Comment on above: Performed By: #### C MP ####[facility] Ghvosfatyc5314[address] [place], [place] [address]Dr. Abiel Clement Bilirubin [Mass/Vol] 0.1 mg/dL Critically low 0.2-1.0 [facility] Comment on above: Performed By: #### C MP ####[facility] Xznbcxnkxb388[address] [place], [place] [address]Dr. Abiel Clement Calcium [Mass/Vol] 8.9 mg/dL Normal 8.5-10.1 [facility] Comment on above: Performed By: #### C MP ####[facility] Sfmjxiufer8691 [place] [address]Dr. Abiel Clement Chloride [Moles/Vol] 99 mmol/L Normal 98-107 [facility] Comment on above: Performed By: #### C MP ####[facility] Lrczyrcgcq2189 [place] [phone]. Abiel Clement CO2 [Moles/Vol] 27.1 mmol/L Normal 21.0-32.0 [facility] Comment on above: Performed By: #### C MP ####[facility] Putpujmugl5143 [place] [address]Dr. Abiel Urbano Creatinine [Mass/Vol] 1.19 mg/dL Critically high 0.55-1.02 [facility] Comment on above: Performed By: #### C MP ####[facility] Fdttvqvseb[address] [place], [place] [address]Dr. Abiel Urbano EGFR-AF CZECH 56 mL/min/1.73m2 Critically low >=60 [facility] Comment on above: Performed By: #### C MP ####[facility] Rnfjplugzk3218[address] [place], [place] [address]Dr. Abiel Urbano EGFR-NON AF CZECH 46 mL/min/1.73m2 Critically low >=60 [facility] Comment on above: Performed By: #### C MP ####[facility] Lngsgnfrin7[address] [place], [place] [address]Dr. Abiel Urbano Globulin (S) [Mass/Vol] 4.0 g/dL Normal [facility] Comment on above: Performed By: #### C MP ####[facility] Gapasgmxal9438 [place] [address]Dr. Abiel Urbano Glucose [Mass/Vol] 148 mg/dL Critically high 74-106 T [facility] Comment on above: Performed By: #### C MP ####[facility] Vtvrbmuwhn5243 [place] [address]Dr. Abiel Clement Potassium [Moles/Vol] 4.3 mmol/L Normal 3.5-5.1 [facility] Comment on above: Performed By: #### C MP ####[facility] Maklqbhcxc2964 [place] [address]Dr. Abiel Clement Protein [Mass/Vol] 6.8 g/dL Normal 6.4-8.2 [facility] Comment on above: Performed By: #### C MP ####[facility] Ikexiwpkkm1778 [place] [address]Dr. Abiel Clement Sodium [Moles/Vol] 136 mmol/L Normal 136-145 [facility] Comment on above: Performed By: #### C MP ####[facility] Xgzxygqssl410[address] [place], [place] [address]Dr. Abiel Clement Urea nitrogen [Mass/Vol] 25.0 mg/dL Critically high 7.0-18.0 [facility] Comment on above: Performed By: #### C MP ####[facility] Fjacxmqlhc98[address] [place], [place] [address]Dr. Abiel Clement Urea nitrogen/Creatinine [Mass ratio] 21.0 mg/mg [facility] Comment on above: Performed By: #### C MP ####[facility] Blsujerxsj16[address] [place], [place] [address]Dr. Abiel Clement XR CHEST 1 Von 06-01-2022 XR CHEST 1 V Normal [facility] POINT OF CARE GLUCOSEon 05-07 Glucose [Mass/Vol] 195 mg/dL Critically high 74-106 [facility] Comment on above: Performed By: #### P OCGLUC ####[facility] Uwvxpirsif27[address] [place], [place] [address]Dr. Abiel Clement Glucose [Mass/Vol] 236 mg/dL Critically high 74-106 [facility] Comment on above: Performed By: #### P OCGLUC ####[facility] Jjrcnwuidd4814[address] [place], [place] [address]Dr. Abiel Clement Glucose [Mass/Vol] 169 mg/dL Critically high 74-106 [facility] Comment on above: Performed By: #### P OCGLUC ####[facility] Fdfanqlaux1118[address] [place], [place] [address]Dr. Yilan Clement Glucose [Mass/Vol] 162 mg/dL Critically high 74-106 T he [facility] Comment on above: Performed By: #### P OCGLUC ####[facility] Lldrxunuga8495 [place] [phone]. Abiel Urbano XR FOOT RT MIN 3 VIEWSon XR FOOT RT MIN 3 VIEWS Normal [facility] Covid-19 PCR (CVDTBH)on 05-07 SARS-CoV-2 (COVID-19) RNA CLARIBEL+probe Ql (Unsp spec) Not detected Normal NOT DETECTED [facility] Comment on above: Result Comment: This test is not yet approved or cleared by the [place] FDA. When there are no FDA-approved or cleared tests available, and other criteria are met, FDA can make tests available under an emergency access mechanism called an Emergency Use Authorization (EUA). The EUA for this test is supported by the [employer] of Health and Human Service's (HHS's) declaration [...] with SARS-CoV-2. Performed By: #### C VDTBH ####[facility] Arcnqmeoht5455 [place] [address]Dr. Abiel Clement PROF CHEM 8 (BAS METB)on Anion gap [Moles/Vol] 11.8 mmol/L Normal [facility] Comment on above: Performed By: #### B MP ####[facility] Utjpflbler7431 [place] [phone]. Abiel Clement Calcium [Mass/Vol] 9.1 mg/dL Normal 8.5-10.1 [facility] Comment on above: Performed By: #### B MP ####[facility] Ovrmsxivrw5907 [place] [phone]. Abiel Clement Chloride [Moles/Vol] 104 mmol/L Normal 98-107 [facility] Comment on above: Performed By: #### B MP ####[facility] Ytpdxepdhu1998 [place] [address]Dr. Abiel Clement CO2 [Moles/Vol] 27.6 mmol/L Normal 21.0-32.0 [facility] Comment on above: Performed By: #### B MP ####[facility] Oflhgdugtp1356 [place] [address]Dr. Abiel Clement Creatinine [Mass/Vol] 0.89 mg/dL Normal 0.55-1.02 [facility] Comment on above: Performed By: #### B MP ####[facility] Jmkfvbrqxs8320 [place] [address]Dr. Abiel Clement EGFR-AF CZECH >60 Normal >=60 [facility] Comment on above: Performed By: #### B MP ####[facility] Ulcwpiowpn317[address] [place], [place] [address]Dr. Abiel Clement EGFR-NON AF CZECH >60 Normal >=60 [facility] Comment on above: Performed By: #### B MP ####[facility] Fsatwhnreg390[address] [place], [place] [address]Dr. Abiel Clement Glucose [Mass/Vol] 83 mg/dL Normal 74-106 [facility] Comment on above: Performed By: #### B MP ####[facility] Rslllzvkou7205[address] [place], [place] [address]Dr. Abiel Clement Potassium [Moles/Vol] 4.4 mmol/L Normal 3.5-5.1 [facility] Comment on above: Performed By: #### B MP ####[facility] Ajgcvlpaxb8364[address] [place], [place] [address]Dr. Abiel Clement Sodium [Moles/Vol] 139 mmol/L Normal 136-145 [facility] Comment on above: Performed By: #### B MP ####[facility] Dtzqwcogwe738[address] [place], [place] [address]Dr. Abiel Clement Urea nitrogen [Mass/Vol] 18.0 mg/dL Normal 7.0-18.0 [facility] Comment on above: Performed By: #### B MP ####[facility] Jfarnrhntw7060 [place] [address]Dr. Suyapaviviana Urbano Urea nitrogen/Creatinine [Mass ratio] 20.2 mg/mg Normal [facility] Comment on above: Performed By: #### B MP ####[facility] Ztpbgpckkm922[address] [place], [place] [address]Dr. Suyapaviviana Urbano CT CSPINE WO CONon CT CSPINE WO CON Normal [facility] CT HEAD WO CONon 05-19-2022 CT HEAD WO CON Normal [facility] XR HIP RT 2 3V W PELVISon XR HIP RT 2 3V W PELVIS Normal [facility] CT FOOT RT WO CONon 05-13-20 CT FOOT RT WO CON Normal The [facility] BLOOD CULTURE ID PANELon A. baumannii Not detected Normal NOT DETECTED [facility] Comment on above: Performed By: #### B CID2 ####[facility] Arssdzaoio45[address] [place], [place] [address]Dr. Abiel Clement Bacteriodes fragilis Not detected Normal NOT DETECTED [facility] Comment on above: Performed By: #### B CID2 ####[facility] Vcqeelvkkq0337 [place] [address]Dr. Abiel Clement BCID CONTROLS PASSED Normal The [facility] Comment on above: Performed By: #### B CID2 ####[facility] Umyhoxyclx1697 [place] [address]Dr. Abiel Clement BCIDBTHD BLOOD CULTURE BOTTLE INFORMATION Normal [facility] Comment on above: Performed By: #### B CID2 ####[facility] Acjtbqdgma9[address] [place], [place] [address]Dr. Abiel Clement BCIDHD1 ANTIMICROBIAL RESISTANCE GENES Normal [facility] Comment on above: Performed By: #### B CID2 ####[facility] Nmuzoaunrs53[address] [place], [place] [address]Dr. Abiel Clement BCIDHD2 SEE BELOW Normal [facility] Comment on above: Result Comment: Note : Antimicrobial resitance can occur via multiple mechanisms. A Not Detected result for the [employer] antomicrobial resistance gene assays does not indicate antimicrobial susceptibility. Subculturing is required for species identification and susceptibility testing of isolates. Performed By: #### B CID2 ####[facility] Zuckvpgrvg7963 [place] [address]Dr. Abiel Clement BCIDHD3 Positive Normal [facility] Comment on above: Performed By: #### B CID2 ####[facility] Bmbcyqxtpk8749 [place] [address]Dr. Abiel Clement BCIDHD4 Negative Normal [facility] Comment on above: Performed By: #### B CID2 ####[facility] Lwywzwazsj8[address] [place], [place] [address]Dr. Abiel Clement BCIDHD5 YEAST Normal [facility] Comment on above: Performed By: #### B CID2 ####[facility] Xufhwwdvre415[address] [place], [place] [address]Dr. Abiel Clement Bottle Set: Set 1 Normal [facility] Comment on above: Performed By: #### B CID2 ####[facility] Cnevgcxshz112[address] [place], [place] [address]Dr. Abiel Clement Bottle: Aerobic Normal [facility] Comment on above: Performed By: #### B CID2 ####[facility] Pnntrcdanz498[address] [place], [place] [address]Dr. Abiel Clement C. neoformans/gattii Not detected Normal NOT DETECTED [facility] Comment on above: Performed By: #### B CID2 ####[facility] Jrvvrfrhmm8059 [place] [address]Dr. Abiel Clement Sakshi albicans Not detected Normal NOT DETECTED [facility] Comment on above: Performed By: #### B CID2 ####[facility] Sopgrzkbim60[address] [place], [place] [address]Dr. Abiel Clement Sakshi auris Not detected Normal NOT DETECTED [facility] Comment on above: Performed By: #### B CID2 ####[facility] Xkbjlogzyg[address] [place], [place] [id number]. Abiel Clement Sakshi glabrata Not detected Normal NOT DETECTED [facility] Comment on above: Performed By: #### B CID2 ####[facility] Zwhenfigsb088[address] [place], [place] [address]Dr. Yiviviana Clement Sakshi Krusei Not detected Normal NOT DETECTED [facility] Comment on above: Performed By: #### B CID2 ####[facility] Unuedhxrid33[address] [place], [place] [address]Dr. Yiviviana Clement Sakshi Parapsilosis Not detected Normal NOT DETECTED [facility] Comment on above: Performed By: #### B CID2 ####[facility] [address]ctzbv[address] [place], [place] [address]Dr. Yiviviana Clement Sakshi Tropicalis Not detected Normal NOT DETECTED [facility] Comment on above: Performed By: #### B CID2 ####[facility] Itbmaxujlu6810[address] [place], [place] [address]Dr. Abiel Clement CTX-M Resistant Gene Not Applicable Normal NOT DETECTE D [facility] Comment on above: Performed By: #### B CID2 ####[facility] Pdjjxerwva2329[address] [place], [place] [address]Dr. Yiviviana Clement E. Cloacae complex Not detected Normal NOT DETECTED [facility] Comment on above: Performed By: #### B CID2 ####[facility] Kwxyukktnx6611[address] [place], [place] [address]Dr. Yiviviana Clement E. faecalis Not detected Normal NOT DETECTED [facility] Comment on above: Performed By: #### B CID2 ####[facility] Mxlkfbuuyf220[address] [place], [place] [address]Dr. Abiel Clement E. faecium Not detected Normal NOT DETECTED The [facility] Comment on above: Performed By: #### B CID2 ####[facility] Zspaocoptm8690[address] [place], [place] [address]Dr. Abiel Clement Enterobacteriaceae Not detected Normal NOT DETECTED [facility] Comment on above: Performed By: #### B CID2 ####[facility] Avkzomerxo1235[address] [place], [place] [address]Dr. Yilan Lcement Escherichia coli Not detected Normal NOT DETECTED [facility] Comment on above: Performed By: #### B CID2 ####[facility] Ygeiaezctz5155[address] [place], [place] [address]Dr. Abiel Clement H. influenzae Not detected Normal NOT DETECTED [facility] Comment on above: Performed By: #### B CID2 ####[facility] Lzegkwhwvo1285[address] [place], [place] [address]Dr. Abiel Clement IMP Resistant Gene Not Applicable Normal NOT DETECTED [facility] Comment on above: Performed By: #### B CID2 ####[facility] Kqwwdlxdvh738[address] [place], [place] [address]Dr. Abiel Clement K. oxytoca Not detected Normal NOT DETECTED The [facility] Comment on above: Performed By: #### B CID2 ####[facility] Krwpdmejtn3155[address] [place], [place] [address]Dr. Abiel Clement K. pneumoniae Not detected Normal NOT DETECTED [facility] Comment on above: Performed By: #### B CID2 ####[facility] Adhftimhdv636[address] [place], [place] [address]Dr. Abiel Clement Klebsiella aerogenes Not detected Normal NOT DETECTED [facility] Comment on above: Performed By: #### B CID2 ####[facility] Pposozbpmp635[address] [place], [place] [address]Dr. Abiel Clement KPC Resistant Gene Not detected Normal NOT DETECTED [facility] Comment on above: Performed By: #### B CID2 ####[facility] Oiprugpalv995[address] [place], [place] [address]Dr. Abiel Clement List. monocytogenes Not detected Normal NOT DETECTED [facility] Comment on above: Performed By: #### B CID2 ####[facility] Jjtshbcygp2028[address] [place], [place] [address]Dr. Abiel Clement Mcr-1 Resistant Gene Not Applicable Normal NOT DETECTE D [facility] Comment on above: Performed By: #### B CID2 ####[facility] Ewxpqwbzvb8713[address] [place], [place] [address]Dr. Abiel Clement mecA/C Not Applicable Normal NOT DETECTED The [facility] Comment on above: Performed By: #### B CID2 ####[facility] Tztedhfqkd7675[address] [place], [place] [address]Dr. Abiel Clement mecA/C MREJ Not Applicable Normal NOT DETECTED [facility] Comment on above: Performed By: #### B CID2 ####[facility] Mucevomqjb199[address] [place], [place] [address]Dr. Abiel Clement N. meningitidis Not detected Normal NOT DETECTED The [facility] Comment on above: Performed By: #### B CID2 ####[facility] Ldcfdxkxkr988779 [address] [place], [place] [address]Dr. Abiel Clement NDM Resistant Gene Not Applicable Normal NOT DETECTED [facility] Comment on above: Performed By: #### B CID2 ####[facility] Cxdfldhhbo037[address] [place], [place] [address]Dr. Abiel Clement Oxa-48-like Not Applicable Normal NOT DETECTED The [facility] Comment on above: Performed By: #### B CID2 ####[facility] Drueexjudw725[address] [place], [place] [address]Dr. Abiel Clement Proteus Not detected Normal NOT DETECTED The [facility] Comment on above: Performed By: #### B CID2 ####[facility] Yliobxoniq604[address] [place], [place] [address]Dr. Abiel Clement Pseud. aeruginosa Not detected Normal NOT DETECTED [facility] Comment on above: Performed By: #### B CID2 ####[facility] Hthzhreeus872[address] [place], [place] [address]Dr. Abiel Clement S. maltophilia Not detected Normal NOT DETECTED The [facility] Comment on above: Performed By: #### B CID2 ####[facility] Aqcxbdregf194[address] [place], [place] [address]Dr. Abiel Clement Salmonella Not detected Normal NOT DETECTED The [facility] Comment on above: Performed By: #### B CID2 ####[facility] Vghlgllroi4626[address] [place], [place] [address]Dr. Abiel Clement Seratia marcescens Not detected Normal NOT DETECTED [facility] Comment on above: Performed By: #### B CID2 ####[facility] U[address]rsnq[address] [place] [address]Dr. Abiel Clement Site: R A/c Normal [facility] Comment on above: Performed By: #### B CID2 ####[facility] Worpexhyck3048[address] [place], [place] [address]Dr. Abiel Clement Staph. aureus Not detected Normal NOT DETECTED [facility] Comment on above: Performed By: #### B CID2 ####[facility] Zwfndkqhlj659379 [address] [place], [place] [address]Dr. Abiel Clement Staph. epidermidis Not detected Normal NOT DETECTED [facility] Comment on above: Performed By: #### B CID2 ####[facility] Jalbvxfnuu8988[address] [place], [place] [address]Dr. Abiel Clement Staph. lugdunensis Not detected Normal NOT DETECTED [facility] Comment on above: Performed By: #### B CID2 ####[facility] Rjhlboummj918[address] [place], [place] [address]Dr. Abiel Clement Staphylococcus Not detected Normal NOT DETECTED The [facility] Comment on above: Performed By: #### B CID2 ####[facility] Ttduljgnto7299[address] [place], [place] [address]Dr. Abiel Clement Strep. agalactiae Not detected Normal NOT DETECTED [facility] Comment on above: Performed By: #### B CID2 ####[facility] Xilgpcgahm804[address] [place], [place] [address]Dr. Abiel Clement Strep. pneumoniae Not detected Normal NOT DETECTED [facility] Comment on above: Performed By: #### B CID2 ####[facility] Eoolvslzfz2225[address] [place], [place] [address]Dr. Abiel Clement Strep. pyogenes Not detected Normal NOT DETECTED The [facility] Comment on above: Performed By: #### B CID2 ####[facility] Giqvdbxlmc0744[address] [place], [place] [address]Dr. Suyapalan Clement Streptococcus Detected Abnormal NOT DETECTED [facility] Comment on above: Performed By: #### B CID2 ####[facility] Agdnymqcrs149879 [address] [place], [place] [address]Dr. Abiel Clement Jarvis/B Resist. Gene Not detected Normal NOT DETECTED T [facility] Comment on above: Performed By: #### B CID2 ####[facility] Ggdwguxhmo5211[address] [place], [place] [address]Dr. Abiel Clement VIM Resistant Gene Not Applicable Normal NOT DETECTED [facility] Comment on above: Performed By: #### B CID2 ####[facility] Zmdcedrxsr7828[address] [place], [place] [address]Dr. Abiel Clement BNPon 04-30-2022 Natriuretic peptide B (Bld) [Mass/Vol] 127.0 pg/mL Normal <=900.0 [facility] Comment on above: Performed By: #### B RACING SECRETARY AND HANDICAPPER, CMP, HSTROPN ####[facility] Vzpmvitxzf0035[address] [place], [place] [address]Dr. Abiel Clement CBC AUTO DIFFon 04-30-2022 BASO # 0.1 103/ul Normal 0.0-0.1 [facility] Comment on above: Performed By: #### C BC ####[facility] Orhxxtcyoh6468[address] [place], [place] [address]Dr. Abiel Clement Basophils/100 WBC (Bld) 0.6 % Normal 0.2-2.0 [facility] Comment on above: Performed By: #### C BC ####[facility] Glmcyrmlrq650[address] [place], [place] [address]Dr. Abiel Clement EO # 0.3 103/ul Normal 0.0-0.7 [facility] Comment on above: Performed By: #### C BC ####[facility] Xjwoaoelqu359[address] [place], [place] [address]Dr. Abiel Clement Eosinophils/100 WBC (Bld) 2.8 % Normal 0.9-7.0 [facility] Comment on above: Performed By: #### C BC ####[facility] Mdtdclyhvd996[address] [place], [place] [address]Dr. Abiel Clement Erythrocyte distribution width (RBC) [Ratio] 12.9 % Normal 11.0-15.0 [facility] Comment on above: Performed By: #### C BC ####[facility] Wy[address]wzoedd[address] [place] [address]Dr. Abiel Clement Hematocrit (Bld) [Volume fraction] 38.7 % Normal 36.0-48.0 [facility] Comment on above: Performed By: #### C BC ####[facility] Xbzwaweevh[address] [place] [address]Dr. Abiel Clement Hemoglobin (Bld) [Mass/Vol] 12.5 g/dL Normal 12.0-16.0 [facility] Comment on above: Performed By: #### C BC ####[facility] Lldpjwzsnb584[address] [place], [place] [address]Dr. Abiel Clement IG # 0.03 10e3/ul Normal 0.00-0.03 [facility] Comment on above: Performed By: #### C BC ####[facility] Qfzdxplbzq5937[address] [place], [place] [address]Dr. Suyapaviviana Clement IG % 0.3 % Normal 0.0-0.5 [facility] Comment on above: Performed By: #### C BC ####[facility] Lezhogjqfc055[address] [place], [place] [address]Dr. Abiel Urbano LYMPH # 1.6 103/ul Normal 1.2-3.8 [facility] Comment on above: Performed By: #### C BC ####[facility] Shilnqbcog308[address] [place], [place] [address]Dr. Suyapaviviana Clement Lymphocytes/100 WBC (Bld) 15.0 % Critically low 20.5-60.0 [facility] Comment on above: Performed By: #### C BC ####[facility] Dawuukguie7205[address] [place], [place] [address]Dr. Suyapaviviana Clement MANUAL DIFF REQ NO Normal [facility] Comment on above: Performed By: #### C BC ####[facility] M[address]ahojddt9[address] [place] [address]Dr. Suyapaviviana Clement MCH (RBC) [Entitic mass] 28.9 pg Normal 26.7-34.0 [facility] Comment on above: Performed By: #### C BC ####[facility] Pqslopccvn6[address] [place] [id number]. Abiel Urbano MCHC (RBC) [Mass/Vol] 32.3 g/dL Normal 29.9-35.2 [facility] Comment on above: Performed By: #### C BC ####[facility] Anaoxzeuaa[address] [place] [id number]. Abiel Clement MCV (RBC) [Entitic vol] 89.6 fL Normal 81.0-99.0 [facility] Comment on above: Performed By: #### C BC ####[facility] Ednlsznigh[address] [place], [place] [id number]. Abiel Clement MONO # 0.8 103/ul Normal 0.3-0.8 [facility] Comment on above: Performed By: #### C BC ####[facility] Vpkuotdmlw6727[address] [place], [place] [address]Dr. Abiel Clement Monocytes/100 WBC (Bld) 7.2 % Normal 1.7-12.0 [facility] Comment on above: Performed By: #### C BC ####[facility] Hbsnqqgeuz4429[address] [place], [place] [address]Dr. Abiel Clement NEUT # 7.9 103/ul Critically high 1.4-6.5 [facility] Comment on above: Performed By: #### C BC ####[facility] Scjpbgowhq878[address] [place], [place] [address]Dr. Abiel Clement Neutrophils/100 WBC (Bld) 74.1 % Normal 43.0-75.0 [facility] Comment on above: Performed By: #### C BC ####[facility] Vfsqoztkac897[address] [place], [place] [address]Dr. Abiel Clement Platelet mean volume (Bld) [Entitic vol] 10.9 fL Normal 9.5-13.5 [facility] Comment on above: Performed By: #### C BC ####[facility] Jqpluaofrx5626[address] [place], [place] [address]Dr. Abiel Clement PLT 308 103/ul Normal 150-450 [facility] Comment on above: Performed By: #### C BC ####[facility] Ujfgdxjpiy15[address] [place] [id number]. Abiel Clement RBC 4.32 106/ul Normal 4.20-5.40 [facility] Comment on above: Performed By: #### C BC ####[facility] Akuclomgvo23[address] [place] [id number]. Abiel Clement WBC 10.6 103/ul Normal 4.0-11.0 [facility] Comment on above: Performed By: #### C BC ####[facility] Gnngcebndw96[address] [place] [id number]. Abiel Clement Covid-19 PCR (CVDTBH)on 04-06 SARS-CoV-2 (COVID-19) RNA CLARIBEL+probe Ql (Unsp spec) Not detected Normal NOT DETECTED [facility] Comment on above: Result Comment: When [...] for this test is supported by the [employer] of Health and Human Service's declaration that [...] be used). Performed By: #### C VDTBH ####[facility] Hqrwdkkvpp36[address] [place] [address]Dr. Abiel Clement LACTATE/LACTIC ACIDon 2021 Lactate [Moles/Vol] 2.3 mmol/L Critically high 0.4-1.9 [facility] Comment on above: Performed By: #### L ACT ####[facility] Jhnbuevjci[address] [place], [place] [id number]. Abiel Clement Lactate [Moles/Vol] 3.3 mmol/L Critically high 0.4-1.9 [facility] Comment on above: Performed By: #### L ACT ####[facility] O[address]xqdiob[address] [place] [address]Dr. Abiel Clement PROF 14(COMP METB)on 022 Albumin [Mass/Vol] 3.0 g/dL Critically low 3.4-5.0 [facility] Comment on above: Performed By: #### B RACING SECRETARY AND HANDICAPPER, CMP, HSTROPN ####[facility] Firewtcued[address] [place], [place] [address]Dr. Abiel Clement Albumin/Globulin [Mass ratio] 0.7 {ratio} Normal [facility] Comment on above: Performed By: #### B RACING SECRETARY AND HANDICAPPER, CMP, HSTROPN ####[facility] Uicdhyrncp0132[address] [place], [place] [address]Dr. Abiel Clement ALP [Catalytic activity/Vol] 218 U/L Critically high 46-116 [facility] Comment on above: Performed By: #### B RACING SECRETARY AND HANDICAPPER, CMP, HSTROPN ####[facility] Yunzykvaec7159[address] [place], [place] [address]Dr. Abiel Clement ALT [Catalytic activity/Vol] 29 U/L Normal 14-59 [facility] Comment on above: Performed By: #### B RACING SECRETARY AND HANDICAPPER, CMP, HSTROPN ####[facility] Yoxhrunwur[address] [place] [address]Dr. Abiel Clement Anion gap [Moles/Vol] 14.3 mmol/L Normal [facility] Comment on above: Performed By: #### B RACING SECRETARY AND HANDICAPPER, CMP, HSTROPN ####[facility] Nuenjdgbhh487[address] [place], [place] [address]Dr. Abiel Clement AST [Catalytic activity/Vol] 20 U/L Normal 15-37 [facility] Comment on above: Performed By: #### B RACING SECRETARY AND HANDICAPPER, CMP, HSTROPN ####[facility] Ejosxwgeup1568[address] [place], [place] [address]Dr. Abiel Clement Bilirubin [Mass/Vol] 0.3 mg/dL Normal 0.2-1.0 [facility] Comment on above: Performed By: #### B RACING SECRETARY AND HANDICAPPER, CMP, HSTROPN ####[facility] Vnztjgilvg68[address] [place] [address]Dr. Abiel Clement Calcium [Mass/Vol] 9.2 mg/dL Normal 8.5-10.1 [facility] Comment on above: Performed By: #### B RACING SECRETARY AND HANDICAPPER, CMP, HSTROPN ####[facility] Gzgizadpgh0941 [place] [address]Dr. Abiel Clement Chloride [Moles/Vol] 98 mmol/L Normal 98-107 [facility] Comment on above: Performed By: #### B RACING SECRETARY AND HANDICAPPER, CMP, HSTROPN ####[facility] Egpxjxvvzg3436[address] [place], [place] [address]Dr. Abiel Clement CO2 [Moles/Vol] 26.5 mmol/L Normal 21.0-32.0 [facility] Comment on above: Performed By: #### B RACING SECRETARY AND HANDICAPPER, CMP, HSTROPN ####[facility] Ttfufgnahx9037[address] [place], [place] [address]Dr. Abiel Clement Creatinine [Mass/Vol] 1.10 mg/dL Critically high 0.55-1.02 [facility] Comment on above: Performed By: #### B RACING SECRETARY AND HANDICAPPER, CMP, HSTROPN ####[facility] Gzpvsiunbx032[address] [place], [place] [address]Dr. Abiel Clement EGFR-AF CZECH >60 Normal >=60 [facility] Comment on above: Performed By: #### B RACING SECRETARY AND HANDICAPPER, CMP, HSTROPN ####[facility] Thpkmisnlp65[address] [place], [place] [address]Dr. Abiel Clement EGFR-NON AF CZECH 50 mL/min/1.73m2 Critically low >=60 [facility] Comment on above: Performed By: #### B RACING SECRETARY AND HANDICAPPER, CMP, HSTROPN ####[facility] Ljktlnvdyf94[address] [place] [address]Dr. Abiel Clement Globulin (S) [Mass/Vol] 4.3 g/dL Normal [facility] Comment on above: Performed By: #### B RACING SECRETARY AND HANDICAPPER, CMP, HSTROPN ####[facility] Mnawmmmcpq6[address] [place] [address]Dr. Abiel Clement Glucose [Mass/Vol] 338 mg/dL Critically high 74-106 T [facility] Comment on above: Performed By: #### B RACING SECRETARY AND HANDICAPPER, CMP, HSTROPN ####[facility] Dcmiepgdgg44[address] [place] [address]Dr. Abiel Clement Potassium [Moles/Vol] 3.8 mmol/L Normal 3.5-5.1 [facility] Comment on above: Performed By: #### B RACING SECRETARY AND HANDICAPPER, CMP, HSTROPN ####[facility] Hkhytswvbf426[address] [place], [place] [address]Dr. Abiel Clement Protein [Mass/Vol] 7.3 g/dL Normal 6.4-8.2 [facility] Comment on above: Performed By: #### B RACING SECRETARY AND HANDICAPPER, CMP, HSTROPN ####[facility] Qcjnenguuw325[address] [place], [place] [address]Dr. Abiel Clement Sodium [Moles/Vol] 135 mmol/L Critically low 136-145 Th [facility] Comment on above: Performed By: #### B RACING SECRETARY AND HANDICAPPER, CMP, HSTROPN ####[facility] Lxqpgwrllk23[address] [place] [address]Dr. Abiel Clement Urea nitrogen [Mass/Vol] 23.0 mg/dL Critically high 7.0-18.0 [facility] Comment on above: Performed By: #### B RACING SECRETARY AND HANDICAPPER, CMP, HSTROPN ####[facility] Wbzhmigcrh57[address] [place] [address]Dr. Abiel Clement Urea nitrogen/Creatinine [Mass ratio] 20.9 mg/mg Normal [facility] Comment on above: Performed By: #### B RACING SECRETARY AND HANDICAPPER, CMP, HSTROPN ####[facility] Gmiwxhviqt8[address] [place] [address]Dr. Abiel Clement TROPONIN, HIGH SENSITIVITYon 04-30-2022 HSTROP 3.8 pg/mL Critically low 4.0-51.3 [facility] Comment on above: Result Comment: CUT- OFF POINTS HAVE BEEN ESTABLISHED BASED ON THE FOURTH UNIVERSAL DEFINITIONS OF MYOCARDIALINFARCTION. THE UPPER REFERENCE LIMIT (URL) OF TROPONIN, DEFINED THE 99TH PERCENTILE OFcTnI DISTRIBUTION IN A REFERENCE POPULATION, HAS BEEN CONFIRMED THE DECISION THRESHOLDFOR [place] DIAGNOSIS. Performed By: #### H STROPN ####[facility] Zdfgnurqiw76[address] [place], [place] [address]Dr. Abiel Urbano HSTROP 4.0 pg/mL Normal 4.0-51.3 [facility] Comment on above: Result Comment: CUT- OFF POINTS HAVE BEEN ESTABLISHED BASED ON THE FOURTH UNIVERSAL DEFINITIONS OF MYOCARDIALINFARCTION. THE UPPER REFERENCE LIMIT (URL) OF TROPONIN, DEFINED THE 99TH PERCENTILE OFcTnI DISTRIBUTION IN A REFERENCE POPULATION, HAS BEEN CONFIRMED THE DECISION THRESHOLDFOR [place] DIAGNOSIS. Performed By: #### B RACING SECRETARY AND HANDICAPPER, CMP, HSTROPN ####[facility] Tgnqgisflj1848[address] [place], [place] [address]Dr. Suyapaviviana Clement XR CHEST 1 Von 04-30-2022 XR CHEST 1 V Normal [facility] BNPon 03-15-2022 Natriuretic peptide B (Bld) [Mass/Vol] 2586.0 pg/mL Critically high <=900.0 [facility] Comment on above: Result Comment: repe ated Performed By: #### C MP, BNP, HSTROPN ####[facility] Rojvsschya650[address] [place], [place] [address]Dr. Abiel Urbano CBC AUTO DIFFon 03-15-2022 BASO # 0.0 103/ul Normal 0.0-0.1 [facility] Comment on above: Performed By: #### C BC ####[facility] Sshwwfoxfx115[address] [place], [place] [address]Dr. Abiel Clement Basophils/100 WBC (Bld) 0.4 % Normal 0.2-2.0 [facility] Comment on above: Performed By: #### C BC ####[facility] Zkwnqiwzun[address] [place], [place] [address]Dr. Abiel Clement EO # 0.1 103/ul Normal 0.0-0.7 [facility] Comment on above: Performed By: #### C BC ####[facility] Jgzhaezrec14[address] [place] [address]Dr. Abiel Clement Eosinophils/100 WBC (Bld) 1.8 % Normal 0.9-7.0 [facility] Comment on above: Performed By: #### C BC ####[facility] Nwqbmmlppd332[address] [place], [place] [address]Dr. Abiel Clement Erythrocyte distribution width (RBC) [Ratio] 13.7 % Normal 11.0-15.0 [facility] Comment on above: Performed By: #### C BC ####[facility] Ornomqvoqh2[address] [place], [place] [address]Dr. Abiel Clement Hematocrit (Bld) [Volume fraction] 29.7 % Critically low 36.0-48.0 [facility] Comment on above: Performed By: #### C BC ####[facility] Exyrsdukfb3270[address] [place], [place] [address]Dr. Abiel Clement Hemoglobin (Bld) [Mass/Vol] 9.5 g/dL Critically low 12.0-16.0 [facility] Comment on above: Performed By: #### C BC ####[facility] Doycduzrdd16[address] [place], [place] [address]Dr. Abiel Clement IG # 0.02 10e3/ul Normal 0.00-0.03 [facility] Comment on above: Performed By: #### C BC ####[facility] Jiggqatxye3[address] [place], [place] [address]Dr. Aibel Clement IG % 0.3 % Normal 0.0-0.5 [facility] [facility] Comment on above: Performed By: #### C BC ####[facility] J[address]kwz[address]ia[address] [place], [place] [address]Dr. Abiel Clement LYMPH # 1.6 103/ul Normal 1.2-3.8 [facility] Comment on above: Performed By: #### C BC ####[facility] Ehkiqromqh8[address] [place], [place] [address]Dr. Abiel Clement Lymphocytes/100 WBC (Bld) 20.1 % Critically low 20.5-60.0 [facility] Comment on above: Performed By: #### C BC ####[facility] Uzmpedvrgq88[address] [place] [phone]. Abiel Clement MANUAL DIFF REQ NO Normal [facility] Comment on above: Performed By: #### C BC ####[facility] Ubvocmdatr6224 [place] [phone]. Abiel Clement MCH (RBC) [Entitic mass] 29.6 pg Normal 26.7-34.0 [facility] Comment on above: Performed By: #### C BC ####[facility] Lqbmbvkxqc6723 [place] [phone]. Abiel Clement MCHC (RBC) [Mass/Vol] 32.0 g/dL Normal 29.9-35.2 [facility] Comment on above: Performed By: #### C BC ####[facility] Ydfngtipxw[address] [place], [place] [address]Dr. Abiel Clement MCV (RBC) [Entitic vol] 92.5 fL Normal 81.0-99.0 [facility] Comment on above: Performed By: #### C BC ####[facility] Qfcsxxcwtn[address] [place], [place] [id number]. Abiel Clement MONO # 0.6 103/ul Normal 0.3-0.8 [facility] Comment on above: Performed By: #### C BC ####[facility] Xydnyffuzd[address] [place], [place] [address]Dr. Abiel Clement Monocytes/100 WBC (Bld) 7.1 % Normal 1.7-12.0 [facility] Comment on above: Performed By: #### C BC ####[facility] Cjiapprpgc[address] [place], [place] [address]Dr. Abiel Clement NEUT # 5.5 103/ul Normal 1.4-6.5 [facility] Comment on above: Performed By: #### C BC ####[facility] Ujgwavvqtz6[address] [place], [place] [id number]. Abiel Clement Neutrophils/100 WBC (Bld) 70.3 % Normal 43.0-75.0 [facility] Comment on above: Performed By: #### C BC ####[facility] Wkihsehlaj5284 [place] [address]Dr. Abiel Clement Platelet mean volume (Bld) [Entitic vol] 10.5 fL Normal 9.5-13.5 [facility] Comment on above: Performed By: #### C BC ####[facility] Twrsqszutw4510 [place] [address]Dr. Abiel Clement PLT 250 103/ul Normal 150-450 [facility] Comment on above: Performed By: #### C BC ####[facility] Fuxsneiatt0640 [place] [address]Dr. Abiel Clement RBC 3.21 106/ul Critically low 4.20-5.40 [facility] Comment on above: Performed By: #### C BC ####[facility] Cdvqovuxyf3012 [place] [address]Dr. Abiel Clement WBC 7.9 103/ul Normal 4.0-11.0 [facility] Comment on above: Performed By: #### C BC ####[facility] Hxraqidvjp9[address] [place], [place] [address]Dr. Abiel Clement PROF 14(COMP METB)on 022 Albumin [Mass/Vol] 2.2 g/dL Critically low 3.4-5.0 [facility] Comment on above: Performed By: #### C MP, BNP, HSTROPN ####[facility] Jhplneanyz0052 [place] [address]Dr. Abiel Clement Albumin/Globulin [Mass ratio] 0.6 {ratio} Normal [facility] Comment on above: Performed By: #### C MP, BNP, HSTROPN ####[facility] Xxvikyabau0164 [place] [address]Dr. Abiel Clement ALP [Catalytic activity/Vol] 112 U/L Normal 46-116 [facility] Comment on above: Performed By: #### C MP, BNP, HSTROPN ####[facility] Sjmoylvvbe4418 [place] [address]Dr. Abiel Clement ALT [Catalytic activity/Vol] 19 U/L Normal 14-59 [facility] Comment on above: Performed By: #### C MP, BNP, HSTROPN ####[facility] Zgrxwklaxu1857 [place] [address]Dr. Abiel Clement Anion gap [Moles/Vol] 12.2 mmol/L Normal [facility] Comment on above: Performed By: #### C MP, BNP, HSTROPN ####[facility] Wmclwojsuj8[address] [place], [place] [address]Dr. Abiel Clement AST [Catalytic activity/Vol] 15 U/L Normal 15-37 [facility] Comment on above: Performed By: #### C MP, BNP, HSTROPN ####[facility] Evfvktxidb5848[address] [place], [place] [address]Dr. Abiel Clement Bilirubin [Mass/Vol] 0.3 mg/dL Normal 0.2-1.0 [facility] Comment on above: Performed By: #### C MP, BNP, HSTROPN ####[facility] Wlmdhinfau13[address] [place], [place] [address]Dr. Abiel Clement Calcium [Mass/Vol] 8.6 mg/dL Normal 8.5-10.1 [facility] Comment on above: Performed By: #### C MP, BNP, HSTROPN ####[facility] Fiqgkmidbd249[address] [place], [place] [address]Dr. Abiel Clement Chloride [Moles/Vol] 104 mmol/L Normal 98-107 [facility] Comment on above: Performed By: #### C MP, BNP, HSTROPN ####[facility] Niafkbqglm[address] [place], [place] [address]Dr. Abiel Clement CO2 [Moles/Vol] 25.3 mmol/L Normal 21.0-32.0 [facility] Comment on above: Performed By: #### C MP, BNP, HSTROPN ####[facility] Scfkmosbgs4085 [place] [address]Dr. Abiel Clement Creatinine [Mass/Vol] 0.98 mg/dL Normal 0.55-1.02 [facility] Comment on above: Performed By: #### C MP, BNP, HSTROPN ####[facility] Olctmlcofk2133 [place] [address]Dr. Abiel Clement EGFR-AF CZECH >60 Normal >=60 [facility] Comment on above: Performed By: #### C MP, BNP, HSTROPN ####[facility] Nzzpvrquva7696 [place] [address]Dr. Abiel Clement EGFR-NON AF CZECH 58 mL/min/1.73m2 Critically low >=60 [facility] Comment on above: Performed By: #### C MP, BNP, HSTROPN ####[facility] Ilxonjoqne0786 [place] [address]Dr. Abiel Clement Globulin (S) [Mass/Vol] 3.7 g/dL Normal [facility] Comment on above: Performed By: #### C MP, BNP, HSTROPN ####[facility] Qulhpempqh6[address] [place], [place] [address]Dr. Abiel Clement Glucose [Mass/Vol] 279 mg/dL Critically high 74-106 [facility] Comment on above: Performed By: #### C MP, BNP, HSTROPN ####[facility] Jrlrftaran418[address] [place], [place] [address]Dr. Abiel Clement Potassium [Moles/Vol] 3.5 mmol/L Normal 3.5-5.1 [facility] Comment on above: Performed By: #### C MP, BNP, HSTROPN ####[facility] Avrssiasfw932[address] [place], [place] [address]Dr. Abiel Clement Protein [Mass/Vol] 5.9 g/dL Critically low 6.4-8.2 [facility] Comment on above: Performed By: #### C MP, BNP, HSTROPN ####[facility] Auoxfwglri3526[address] [place], [place] [address]Dr. Abiel Clement Sodium [Moles/Vol] 138 mmol/L Normal 136-145 [facility] Comment on above: Performed By: #### C MP, BNP, HSTROPN ####[facility] Lntnilgoqa3458 [place] [address]Dr. Abiel Clement Urea nitrogen [Mass/Vol] 23.0 mg/dL Critically high 7.0-18.0 [facility] Comment on above: Performed By: #### C MP, BNP, HSTROPN ####[facility] Utzyxnxiyv4741 [place] [address]Dr. Abiel Clement Urea nitrogen/Creatinine [Mass ratio] 23.5 mg/mg Normal [facility] Comment on above: Performed By: #### C MP, BNP, HSTROPN ####[facility] Eniqipjexq464[address] [place], [place] [address]Dr. Abiel Clement TROPONIN, HIGH SENSITIVITYon 03-15-2022 HSTROP 9.0 pg/mL Normal 4.0-51.3 [facility] Comment on above: Result Comment: CUT- OFF POINTS HAVE BEEN ESTABLISHED BASED ON THE FOURTH UNIVERSAL DEFINITIONS OF MYOCARDIALINFARCTION. THE UPPER REFERENCE LIMIT (URL) OF TROPONIN, DEFINED THE 99TH PERCENTILE OFcTnI DISTRIBUTION IN A REFERENCE POPULATION, HAS BEEN CONFIRMED THE DECISION THRESHOLDFOR [place] DIAGNOSIS. Performed By: #### C MP, BNP, HSTROPN ####[facility] Uiezrlfoon[address] [place], [place] [address]Dr. Abiel Clement BNPon 03-14-2022 Natriuretic peptide B (Bld) [Mass/Vol] 3438.0 pg/mL Critically high <=900.0 [facility] Comment on above: Performed By: #### H STROPN, BNP, CMP ####[facility] Ydovqwjatr[address] [place], [place] [address]Dr. Abiel Clement CBC AUTO DIFFon 03-14-2022 BASO # 0.0 103/ul Normal 0.0-0.1 [facility] Comment on above: Performed By: #### C BC ####[facility] Qjhfipyrkn5[address] [place], [place] [address]Dr. Abiel Clement Basophils/100 WBC (Bld) 0.4 % Normal 0.2-2.0 [facility] Comment on above: Performed By: #### C BC ####[facility] Lsuiubucpg7457 [place] [phone]. Abiel Clement EO # 0.1 103/ul Normal 0.0-0.7 [facility] Comment on above: Performed By: #### C BC ####[facility] Gtubsudjns3410 [place] [phone]. Abiel Clement Eosinophils/100 WBC (Bld) 0.9 % Normal 0.9-7.0 [facility] Comment on above: Performed By: #### C BC ####[facility] Cpddkryvxo2593 [place] [address]Dr. Abiel Clement Erythrocyte distribution width (RBC) [Ratio] 13.5 % Normal 11.0-15.0 [facility] Comment on above: Performed By: #### C BC ####[facility] Kjswjzjyyq9997 [place] [address]Dr. Abiel Clement Hematocrit (Bld) [Volume fraction] 29.5 % Critically low 36.0-48.0 [facility] Comment on above: Performed By: #### C BC ####[facility] Qflycsigck4492 [place] [phone]. Abiel Clement Hemoglobin (Bld) [Mass/Vol] 9.3 g/dL Critically low 12.0-16.0 [facility] Comment on above: Performed By: #### C BC ####[facility] Vwifukarhg8998 [place] [address]Dr. Abiel Clement IG # 0.07 10e3/ul Critically high 0.00-0.03 [facility] Comment on above: Performed By: #### C BC ####[facility] Ottbrjzuzl3751 [place] [phone]. Abiel Clement IG % 0.7 % Critically high 0.0-0.5 [facility] Comment on above: Performed By: #### C BC ####[facility] Jyshqykauy9[address] [place], [place] [address]Dr. Abiel Cleemnt LYMPH # 1.7 103/ul Normal 1.2-3.8 [facility] Comment on above: Performed By: #### C BC ####[facility] Cgcoilyywn7484 [place] [phone]. Abiel Urbano Lymphocytes/100 WBC (Bld) 17.0 % Critically low 20.5-60.0 [facility] Comment on above: Performed By: #### C BC ####[facility] Wetpakryrp2912 [place] [phone]. Suyapaviviana Clement MANUAL DIFF REQ NO Normal [facility] Comment on above: Performed By: #### C BC ####[facility] Dbuysxlyyz2877 [place] [phone]. Abiel Urbano MCH (RBC) [Entitic mass] 29.2 pg Normal 26.7-34.0 [facility] Comment on above: Performed By: #### C BC ####[facility] Jgbkotqshl246[address] [place], [place] [address]Dr. Abiel Urbano MCHC (RBC) [Mass/Vol] 31.5 g/dL Normal 29.9-35.2 [facility] Comment on above: Performed By: #### C BC ####[facility] Rkdgpjgsls2176 [place] [phone]. Abiel Urbano MCV (RBC) [Entitic vol] 92.5 fL Normal 81.0-99.0 [facility] Comment on above: Performed By: #### C BC ####[facility] Tcgkcfqyvi0182 [place] [phone]. Abiel Clement MONO # 0.9 103/ul Critically high 0.3-0.8 [facility] Comment on above: Performed By: #### C BC ####[facility] Icapbbkowx5399 [place] [phone]. Suyapaviviana Clement Monocytes/100 WBC (Bld) 9.1 % Normal 1.7-12.0 [facility] Comment on above: Performed By: #### C BC ####[facility] Xnbxgjccpa[address] [place], [place] [id number]. Abiel Clement NEUT # 7.3 103/ul Critically high 1.4-6.5 [facility] Comment on above: Performed By: #### C BC ####[facility] Hitheraodm6986 [place] [phone]. Abiel Clement Neutrophils/100 WBC (Bld) 71.9 % Normal 43.0-75.0 [facility] Comment on above: Performed By: #### C BC ####[facility] Vrkoqzamhp1115 [place] [phone]. Abiel Clement Platelet mean volume (Bld) [Entitic vol] 11.0 fL Normal 9.5-13.5 [facility] Comment on above: Performed By: #### C BC ####[facility] Znixcdaalb4435 [place] [phone]. Abiel Clement PLT 232 103/ul Normal 150-450 [facility] Comment on above: Performed By: #### C BC ####[facility] Fuxcrofcry4719 [place] [phone]. Abiel Clement RBC 3.19 106/ul Critically low 4.20-5.40 [facility] Comment on above: Performed By: #### C BC ####[facility] Gqgfoggfdr8716 [place] [phone]. Abiel Clement WBC 10.1 103/ul Normal 4.0-11.0 [facility] Comment on above: Performed By: #### C BC ####[facility] Rmloahiywu9946 [place] [phone]. Abiel Clement POINT OF CARE GLUCOSEon 07- 0-2021 Glucose [Mass/Vol] 141 mg/dL Critically high 74-106 [facility] Comment on above: Performed By: #### P OCGLUC ####[facility] Drwlccxpbh1052 [place] [phone]. Abiel Clement Glucose [Mass/Vol] 182 mg/dL Critically high 74-106 [facility] Comment on above: Performed By: #### P OCGLUC ####[facility] Vxkieeczta3570 [place] [phone]. Abiel Clement Glucose [Mass/Vol] 235 mg/dL Critically high 74-106 [facility] Comment on above: Performed By: #### P OCGLUC ####[facility] Trnzhpbiga5947 [place] [phone]. Abiel Clement Glucose [Mass/Vol] 246 mg/dL Critically high 74-106 [facility] Comment on above: Performed By: #### P OCGLUC ####[facility] Cryawaeuds7091 [place] [phone]. Abiel Clement Glucose [Mass/Vol] 256 mg/dL Critically high -106 [facility] Comment on above: Performed By: #### P OCGLUC ####[facility] Awxridaeje7285 [place] [address]Dr. Abiel Clement Glucose [Mass/Vol] 249 mg/dL Critically high -106 [facility] Comment on above: Performed By: #### P OCGLUC ####[facility] Sttvfvgkzh4469 [place] [address]Dr. Abiel Clement PROF 14(COMP METB)on 022 Albumin [Mass/Vol] 2.2 g/dL Critically low 3.4-5.0 [facility] Comment on above: Performed By: #### H STROPN, BNP, CMP ####[facility] Krilyybxrc0495 [place] [address]Dr. Abiel Clement Albumin/Globulin [Mass ratio] 0.6 {ratio} Normal [facility] Comment on above: Performed By: #### H STROPN, BNP, CMP ####[facility] Cewvincmen9169 [place] [address]Dr. Abiel Clement ALP [Catalytic activity/Vol] 114 U/L Normal 46-116 [facility] Comment on above: Performed By: #### H STROPN, BNP, CMP ####[facility] Yabqtpcdim3403 [place] [address]Dr. Abiel Clement ALT [Catalytic activity/Vol] 20 U/L Normal 14-59 [facility] Comment on above: Performed By: #### H STROPN, BNP, CMP ####[facility] Gfjbmlqcwn0815 [place] [address]Dr. Abiel Clement Anion gap [Moles/Vol] 9.7 mmol/L Normal [facility] Comment on above: Performed By: #### H STROPN, BNP, CMP ####[facility] Gwvczstmas9006 [place] [address]Dr. Abiel Clement AST [Catalytic activity/Vol] 18 U/L Normal 15-37 [facility] Comment on above: Performed By: #### H STROPN, BNP, CMP ####[facility] Bszfebcktr4471 [place] [address]Dr. Abiel Clement Bilirubin [Mass/Vol] 0.2 mg/dL Normal 0.2-1.0 [facility] Comment on above: Performed By: #### H STROPN, BNP, CMP ####[facility] Gstxwbpztv23[address] [place], [place] [address]Dr. Abiel Clement Calcium [Mass/Vol] 8.4 mg/dL Critically low 8.5-10.1 [facility] Comment on above: Performed By: #### H STROPN, BNP, CMP ####[facility] Jzceuovsyl[address] [place], [place] [address]Dr. Abiel Clement Chloride [Moles/Vol] 105 mmol/L Normal 98-107 [facility] Comment on above: Performed By: #### H STROPN, BNP, CMP ####[facility] Cmaxbuyizt489[address] [place], [place] [address]Dr. Abiel Clement CO2 [Moles/Vol] 26.1 mmol/L Normal 21.0-32.0 [facility] Comment on above: Performed By: #### H STROPN, BNP, CMP ####[facility] Xnejxyrnla97[address] [place], [place] [address]Dr. Abiel Clement Creatinine [Mass/Vol] 1.01 mg/dL Normal 0.55-1.02 [facility] Comment on above: Performed By: #### H STROPN, BNP, CMP ####[facility] Toquldqtjq395[address] [place], [place] [address]Dr. Abiel Clement EGFR-AF CZECH >60 Normal >=60 [facility] Comment on above: Performed By: #### H STROPN, BNP, CMP ####[facility] Yqhmuvhxqn6838 [place] [address]Dr. Abiel Clement EGFR-NON AF CZECH 56 mL/min/1.73m2 Critically low >=60 [facility] Comment on above: Performed By: #### H STROPN, BNP, CMP ####[facility] Gutocanrmu9960 [place] [address]Dr. Abiel Clement Globulin (S) [Mass/Vol] 3.4 g/dL Normal [facility] Comment on above: Performed By: #### H STROPN, BNP, CMP ####[facility] Whfousrcao3262 [place] [address]Dr. Abiel Clement Glucose [Mass/Vol] 267 mg/dL Critically high 74-106 [facility] Comment on above: Performed By: #### H STROPN, BNP, CMP ####[facility] Qftlqhzlgh9195 [place] [address]Dr. Abiel Clement Potassium [Moles/Vol] 3.8 mmol/L Normal 3.5-5.1 [facility] Comment on above: Performed By: #### H STROPN, BNP, CMP ####[facility] Bkrailqhcz3120 [place] [address]Dr. Abiel Clement Protein [Mass/Vol] 5.6 g/dL Critically low 6.4-8.2 [facility] Comment on above: Performed By: #### H STROPN, BNP, CMP ####[facility] Xhbbfabyhx8876 [place] [address]Dr. Abiel Clement Sodium [Moles/Vol] 137 mmol/L Normal 136-145 [facility] Comment on above: Performed By: #### H STROPN, BNP, CMP ####[facility] Vlcubbfvjk5455 [place] [address]Dr. Abiel Clement Urea nitrogen [Mass/Vol] 28.0 mg/dL Critically high 7.0-18.0 [facility] Comment on above: Performed By: #### H STROPN, BNP, CMP ####[facility] Fkbymhpaib6302 [place] [address]Dr. Abiel Clement Urea nitrogen/Creatinine [Mass ratio] 27.7 mg/mg Normal [facility] Comment on above: Performed By: #### H STROPN, BNP, CMP ####[facility] Klwzkvlngs8522 [place] [address]Dr. Abiel Clement TROPONIN, HIGH SENSITIVITYon 03-14-2022 HSTROP 13.7 pg/mL Normal 4.0-51.3 [facility] Comment on above: Result Comment: CUT- OFF POINTS HAVE BEEN ESTABLISHED BASED ON THE FOURTH UNIVERSAL DEFINITIONS OF MYOCARDIALINFARCTION. THE UPPER REFERENCE LIMIT (URL) OF TROPONIN, DEFINED THE 99TH PERCENTILE OFcTnI DISTRIBUTION IN A REFERENCE POPULATION, HAS BEEN CONFIRMED THE DECISION THRESHOLDFOR [place] DIAGNOSIS. Performed By: #### H STROPN, BNP, CMP ####[facility] Xqearphvbs197[address] [place], [place] [address]Dr. Abiel Clement BNPon 03-13-2022 Natriuretic peptide B (Bld) [Mass/Vol] 1791.0 pg/mL Critically high <=900.0 [facility] Comment on above: Performed By: #### C MP, BNP ####[facility] Nufmeuhgwc[address] [place], [place] [address]Dr. Abiel Clement Natriuretic peptide B (Bld) [Mass/Vol] 698.0 pg/mL Normal <=900.0 [facility] Comment on above: Performed By: #### B RACING SECRETARY AND HANDICAPPER, CMP ####[facility] Qfwurxeseq832[address] [place], [place] [address]Dr. Abiel Clement CBC AUTO DIFFon 03-13-2022 BASO # 0.0 103/ul Normal 0.0-0.1 [facility] Comment on above: Performed By: #### C BC ####[facility] Yufaewndqf807[address] [place], [place] [address]Dr. Abiel Clement Basophils/100 WBC (Bld) 0.2 % Normal 0.2-2.0 [facility] Comment on above: Performed By: #### C BC ####[facility] Ydmguaayuh387[address] [place], [place] [address]Dr. Abiel Clement EO # 0.0 103/ul Normal 0.0-0.7 [facility] Comment on above: Performed By: #### C BC ####[facility] Ygxgfteafo7903 [place] [phone]. Abiel Clement Eosinophils/100 WBC (Bld) 0.0 % Critically low 0.9-7.0 [facility] Comment on above: Performed By: #### C BC ####[facility] Yjhzxjvbzb6730 [place] [phone]. Abiel Clement Erythrocyte distribution width (RBC) [Ratio] 13.3 % Normal 11.0-15.0 [facility] Comment on above: Performed By: #### C BC ####[facility] Wniqydnksi8104 [place] [address]Dr. Abiel Clement Hematocrit (Bld) [Volume fraction] 33.4 % Critically low 36.0-48.0 [facility] Comment on above: Performed By: #### C BC ####[facility] Uvaemqvpnj[address] [place], [place] [address]Dr. Abiel Clement Hemoglobin (Bld) [Mass/Vol] 10.6 g/dL Critically low 12.0-16.0 [facility] Comment on above: Performed By: #### C BC ####[facility] Urnvrdwptl[address] [place], [place] [address]Dr. Abiel Clement IG # 0.13 10e3/ul Critically high 0.00-0.03 [facility] Comment on above: Performed By: #### C BC ####[facility] Dfebrhcjto7522 [place] [address]Dr. Abiel Clement IG % 0.8 % Critically high 0.0-0.5 [facility] Comment on above: Performed By: #### C BC ####[facility] Cmwnavcqju[address] [place], [place] [address]Dr. Abiel Clement LYMPH # 1.0 103/ul Critically low 1.2-3.8 [facility] Comment on above: Performed By: #### C BC ####[facility] Bbdvegkjka0502 [place] [phone]. Abiel Clement Lymphocytes/100 WBC (Bld) 6.0 % Critically low 20.5-60.0 [facility] Comment on above: Performed By: #### C BC ####[facility] Wsbktoqjki5902 [place] [address]Dr. Abiel Clement MANUAL DIFF REQ NO Normal [facility] Comment on above: Performed By: #### C BC ####[facility] Ufrqjtkooz1355 [place] [phone]. Abiel Clement MCH (RBC) [Entitic mass] 30.0 pg Normal 26.7-34.0 [facility] Comment on above: Performed By: #### C BC ####[facility] Gsifuquhsw4761 [place] [address]Dr. Abiel Clement MCHC (RBC) [Mass/Vol] 31.7 g/dL Normal 29.9-35.2 [facility] Comment on above: Performed By: #### C BC ####[facility] [facility] Xxvpqtogxd[address] [place], [place] [address]Dr. Abiel Clement MCV (RBC) [Entitic vol] 94.6 fL Normal 81.0-99.0 [facility] Comment on above: Performed By: #### C BC ####[facility] Ufgfzxmjzx[address] [place], [place] [address]Dr. Abiel Clement MONO # 1.4 103/ul Critically high 0.3-0.8 [facility] Comment on above: Performed By: #### C BC ####[facility] Uibichmzdg115[address] [place], [place] [address]Dr. Abiel Celment Monocytes/100 WBC (Bld) 8.9 % Normal 1.7-12.0 [facility] Comment on above: Performed By: #### C BC ####[facility] Fxfhrtsfqg15[address] [place], [place] [address]DrKasia Clement NEUT # 13.3 103/ul Critically high 1.4-6.5 The [facility] Comment on above: Performed By: #### C BC ####[facility] Voumnproji[address] [place], [place] [id number] Clement Neutrophils/100 WBC (Bld) 84.1 % Critically high 43.0-75.0 [facility] Comment on above: Performed By: #### C BC ####[facility] [address]irskwozu[address] [place] [address]Dr. Abiel Clement Platelet mean volume (Bld) [Entitic vol] 10.8 fL Normal 9.5-13.5 [facility] Comment on above: Performed By: #### C BC ####[facility] Boiamvczlx1354 [place] [address]Dr. Abiel Clement PLT 243 103/ul Normal 150-450 [facility] Comment on above: Performed By: #### C BC ####[facility] Dpgcvlxzcl3436 [place] [address]Dr. Abiel Clement RBC 3.53 106/ul Critically low 4.20-5.40 [facility] Comment on above: Performed By: #### C BC ####[facility] Gxagqtgtuo9156 [place] [address]Dr. Abiel Clement WBC 15.9 103/ul Critically high 4.0-11.0 The [facility] Comment on above: Performed By: #### C BC ####[facility] Drrnhryiot[address] [place] [address]Dr. Abiel Clement CBC W MANUAL DIFFon 03-13-20 22 ATYPICAL LYMPH # Normal [facility] Comment on above: Performed By: #### C BCMAN ####[facility] Tlkcwkmaxf3558 [place] [address]Dr. Abiel Clement ATYPICAL LYMPH % Normal [facility] Comment on above: Performed By: #### C BCMAN ####[facility] Deljpotxfr9328 [place] [id number]. Suyapaviviana Urbano BAND # 0.8 103/ul Critically high 0.0-0.3 [facility] Comment on above: Performed By: #### C BCMAN ####[facility] Pcnpfgccmf6085 [place] [address]Dr. Abiel Clement BAND % 6 % Critically high 0-5 [facility] Comment on above: Performed By: #### C BCMAN ####[facility] Yxtxzydgqe1183 [place] [id number]. Abiel Clement BASOM # 0.00 103/ul Normal 0.00-0.10 [facility] Comment on above: Performed By: #### C BCMAN ####[facility] Isgaiglcwu4052 [place] [address]Dr. Abiel Clement BASOM % 0.0 % Critically low 0.2-2.0 The [facility] Comment on above: Performed By: #### C BCMAN ####[facility] Looixndveh4666 [place] [address]Dr. Abiel Clement BLAST # Normal [facility] Comment on above: Performed By: #### C BCALLY ####[facility] Iidpjsizui248[address] [place], [place] [address]Dr. Abiel Clement BLAST % Normal [facility] Comment on above: Performed By: #### C BCALLY ####[facility] Gqbmbnzilm[address] [place], [place] [address]Dr. Abiel Clement CORRECTED WBC Normal 4.0-11.0 The [facility] Comment on above: Performed By: #### C BCALLY ####[facility] Qcylvznrpy7[address] [place], [place] [address]Dr. Abiel Clement EOS # 0.00 103/ul Normal 0.00-0.70 [facility] Comment on above: Performed By: #### C BCALLY ####[facility] Lkfaanexle[address] [place], [place] [address]Dr. Abiel Clement EOS% 0.0 % Critically low 0.9-7.0 The [facility] Comment on above: Performed By: #### C BCALLY ####[facility] Cgpzckzzof42[address] [place], [place] [address]Dr. Abiel Clement HCT 38.5 % Normal 36.0-48.0 [facility] Comment on above: Performed By: #### C BCMAN ####[facility] Nxsbmktjic95[address] [place], [place] [address]Dr. Abiel Clement HGB 12.5 g/dl Normal 12.0-16.0 [facility] Comment on above: Performed By: #### C ALVINO ####[facility] Gqywhbkxpr8279 [place], [place] [address]Jq. Abiel Clement LYMPHM # 0.13 103/ul Critically low 1.20-3.80 [facility] Comment on above: Performed By: #### C ALVINO ####[facility] Hurygelzox3009 [place] [id number]. Abiel Clement LYMPHM% 1.0 % Critically low 20.5-60.0 [facility] Comment on above: Performed By: #### C ALVINO ####[facility] Zpctltykvj2366 [place] [phone]. Abiel Clement MCH 29.3 pg Normal 26.7-34.0 [facility] Comment on above: Performed By: #### Sheila DE OLIVEIRA ####[facility] Fepkmbfayw9767 [place] [phone]. Abiel Clement MCHC 32.5 g/dl Normal 29.9-35.2 [facility] Comment on above: Performed By: #### Sheila DE OLIVEIRA ####[facility] Xphvqgqcpl7253 [place] [phone]. Abiel Clement MCV 90.4 fL Normal 81.0-99.0 [facility] Comment on above: Performed By: #### Sheila DE OLIVEIRA ####[facility] Bvmngyyqkz4656 [place] [phone]. Abiel Clement METAMYELOCYTE # Normal [facility] Comment on above: Performed By: #### Sheila DE OLIVEIRA ####[facility] Kvnbbbxtbv2648 [place] [phone]. Abiel Clement METAMYELOCYTE % Normal [facility] Comment on above: Performed By: #### Sheila DE OLIVEIRA ####[facility] Txqgikzjum8069 [place] [phone]. Abiel Clement MONOM# 0.13 103/ul Critically low 0.30-0.80 [facility] Comment on above: Performed By: #### Sheila DE OLIVEIRA ####[facility] Xkkhziqjqj1183 [place] [phone]. Abiel Clement MONOM% 1.0 % Critically low 1.7-12.0 The [facility] Comment on above: Performed By: #### C ALVINO ####[facility] Xeqlrbegpn2224 [place] [phone]. Abiel Clement MPV 10.6 fL Normal 9.5-13.5 [facility] Comment on above: Performed By: #### C ALVINO ####[facility] Gxtyjkybpw7970 [place] [phone]. Abiel Clement MYELOCYTE # Normal [facility] Comment on above: Performed By: #### C ALVINO ####[facility] Ncaietvqcl0716 [place] [address]Dr. Abiel Clement MYELOCYTE % Normal [facility] Comment on above: Performed By: #### C ALVINO ####[facility] Psudkesukp1385 [place] [address]Dr. bAiel Clement NRBC Normal [facility] Comment on above: Performed By: #### C ALVINO ####[facility] Uzkomgtuek5730 [place] [phone]. Abiel Clement PLT 307 103/ul Normal 150-450 [facility] Comment on above: Result Comment: Plat elet clumps noted on diff. Automated Platelet count may be falsely decreased Performed By: #### C ALVINO ####[facility] Zwmpyrhwfj3622 [place] [address]Dr. Abiel Clement RBC 4.26 106/ul Normal 4.20-5.40 [facility] Comment on above: Performed By: #### C ALVINO ####[facility] Uwmpfckpya7713 [place] [phone]. Abiel Clement RDW 13.3 % Normal 11.0-15.0 [facility] Comment on above: Performed By: #### C ALVINO ####[facility] Tqmmoyggrs4731 [place] [phone]. Abiel Clement SEG # 11.68 103/ul Critically high 1.40-6.50 [facility] Comment on above: Performed By: #### C ALVINO ####[facility] Cgjrkxevvg1925 [place], [place] [address]Zv. Abiel Clement SEG % 92.0 % Critically high 43.0-75.0 [facility] Comment on above: Performed By: #### C BCMAN ####[facility] Yiuvmvxtoj6876 [place], [place] [address]Ob. Abiel Clement WBC 12.7 103/ul Critically high 4.0-11.0 [facility] Comment on above: Performed By: #### C BCMAN ####[facility] Linaoowtzz2421 [place], [place] [address]Hk. Abiel Clement CTA CHEST WO W CONon 022 CTA CHEST WO W CON Normal [facility] CULTURE BLOODon 03-13-2022 Microscopic examination of blood, culture Culture Observations: NO GROWTH AT 5 DAYS. Normal [facility] Comment on above: Performed By: #### B LDCX2 ####[facility] Qipfxdyzox8414 [place], [place] [address]Hk. Abiel Clement Microscopic examination of blood, culture Culture Observations: NO GROWTH AT 5 DAYS. Normal [facility] Comment on above: Performed By: #### B LDCX1 ####[facility] Wbljxcxlvn9428 [place] [phone]. Abiel Clement Covid-19 PCR (CVDTB)on SARS-CoV-2 (COVID-19) RNA CLARIBEL+probe Ql (Unsp spec) Not detected Normal NOT DETECTED [facility] Comment on above: Result Comment: When [...] for this test is supported by the [place] of [employer] and Human Service's declaration that [...] be used). Performed By: #### C VDTB ####[facility] Rllnhnzdbc[address] [place], [place] [address]Dr. Abiel Clement D-DIMERon 03-13-2022 D-DIMER 2.68 mg/L FEU Critically high <=0.59 [facility] Comment on above: Performed By: #### D DIM ####[facility] Eaqlpqdcql[address] [place], [place] [address]Dr. Abiel [facility] D-DIMER COMMENTS SEE BELOW Normal [facility] Comment on above: Result Comment: [...] generalized hospitalization. Performed By: #### D DIM ####[facility] Niapvwhuyr68[address] [place], [place] [address]Dr. Abiel Clement LACTATE/LACTIC ACIDon 2021 Lactate [Moles/Vol] 1.6 mmol/L Normal 0.4-1.9 [facility] Comment on above: Performed By: #### L ACT ####[facility] Ctpplvbvng32[address] [place], [place] [address]Dr. Abiel Clement Lactate [Moles/Vol] 2.0 mmol/L Critically high 0.4-1.9 [facility] Comment on above: Performed By: #### L ACT ####[facility] Lxfcurchkg7824[address] [place], [place] [address]Dr. Abiel Clement POINT OF CARE GLUCOSEon Glucose [Mass/Vol] 359 mg/dL Critically high 74-106 [facility] Comment on above: Performed By: #### P OCGLUC ####[facility] Umdehfiybr4120 [place] [phone]. Abiel Clement Glucose [Mass/Vol] 428 mg/dL Critically high 74-106 [facility] Comment on above: Performed By: #### P OCGLUC ####[facility] Cetzlwvzlh0890 [place] [phone]. Suyapaviviana Urbano Glucose [Mass/Vol] 461 mg/dL Critically high 74-106 [facility] Comment on above: Performed By: #### P OCGLUC ####[facility] Lftiyhoodm6609 [place] [address]Dr. Abiel Clement Glucose [Mass/Vol] 494 mg/dL Critically high 74-106 [facility] Comment on above: Performed By: #### P OCGLUC ####[facility] Byyzhjbcqa0537 [place] [address]Dr. Abiel Clement PROF 14(COMP METB)on 022 Albumin [Mass/Vol] 2.4 g/dL Critically low 3.4-5.0 [facility] Comment on above: Performed By: #### C MP, BNP ####[facility] Mnzjhtdhis7965 [place] [address]Dr. Abiel Clement Albumin/Globulin [Mass ratio] 0.6 {ratio} Normal [facility] Comment on above: Performed By: #### C MP, BNP ####[facility] Zfpqilicbk0218 [place] [address]Dr. Abiel Clement ALP [Catalytic activity/Vol] 128 U/L Critically high 46-116 [facility] Comment on above: Performed By: #### C MP, BNP ####[facility] Jlaoexhjcd4915 [place] [address]Dr. Abiel Clement ALT [Catalytic activity/Vol] 17 U/L Normal 14-59 [facility] Comment on above: Performed By: #### C MP, BNP ####[facility] Fohybjwwgi1206 [place] [phone]. Abiel Clement Anion gap [Moles/Vol] 13.9 mmol/L Normal [facility] Comment on above: Performed By: #### C MP, BNP ####[facility] Mmndiqfhqc8620 [place] [address]Dr. Abiel Urbano AST [Catalytic activity/Vol] 26 U/L Normal 15-37 [facility] Comment on above: Performed By: #### C MP, BNP ####[facility] Udurmcflrs5712 [place] [address]Dr. Abiel Clement Bilirubin [Mass/Vol] 0.5 mg/dL Normal 0.2-1.0 [facility] Comment on above: Performed By: #### C MP, BNP ####[facility] Vdslwexofp[address] [place], [place] [address]Dr. Abiel Clement Calcium [Mass/Vol] 8.3 mg/dL Critically low 8.5-10.1 [facility] Comment on above: Performed By: #### C MP, BNP ####[facility] Pcyqcbwrex17[address] [place], [place] [address]Dr. Abiel Clement Chloride [Moles/Vol] 99 mmol/L Normal 98-107 [facility] Comment on above: Performed By: #### C MP, BNP ####[facility] Iksdpltfyv1399[address] [place], [place] [address]Dr. Abiel Clement CO2 [Moles/Vol] 23.4 mmol/L Normal 21.0-32.0 [facility] Comment on above: Performed By: #### C MP, BNP ####[facility] Qzzlioysiu8868[address] [place], [place] [address]Dr. Abiel Clement Creatinine [Mass/Vol] 1.19 mg/dL Critically high 0.55-1.02 [facility] Comment on above: Performed By: #### C MP, BNP ####[facility] Xweafrxiag479[address] [place], [place] [address]Dr. Abiel Clement EGFR-AF CZECH 56 mL/min/1.73m2 Critically low >=60 [facility] Comment on above: Performed By: #### C MP, BNP ####[facility] Ncrxoxdgue335[address] [place], [place] [address]Dr. Abiel Clement EGFR-NON AF CZECH 46 mL/min/1.73m2 Critically low >=60 [facility] Comment on above: Performed By: #### C MP, BNP ####[facility] Qzatrrdofa705[address] [place], [place] [address]Dr. Abiel Clement Globulin (S) [Mass/Vol] 3.7 g/dL Normal [facility] Comment on above: Performed By: #### C MP, BNP ####[facility] Raprbkstaa9185[address] [place], [place] [address]Dr. Abiel Clement Glucose [Mass/Vol] 447 mg/dL Critically high 74-106 T [facility] Comment on above: Performed By: #### C MP, BNP ####[facility] Raalsypcjd0050[address] [place], [place] [address]Dr. Abiel Clement Potassium [Moles/Vol] 5.3 mmol/L Critically high 3.5-5.1 [facility] Comment on above: Performed By: #### C MP, BNP ####[facility] Hlsicjihcs[address] [place], [place] [address]Dr. Abiel Clement Protein [Mass/Vol] 6.1 g/dL Critically low 6.4-8.2 [facility] Comment on above: Performed By: #### C MP, BNP ####[facility] Pahjxanleo144[address] [place], [place] [address]Dr. Abiel Clement Sodium [Moles/Vol] 131 mmol/L Critically low 136-145 [facility] Comment on above: Performed By: #### C MP, BNP ####[facility] Eekxakemcu267[address] [place], [place] [address]Dr. Abiel Clement Urea nitrogen [Mass/Vol] 36.0 mg/dL Critically high 7.0-18.0 [facility] Comment on above: Performed By: #### C MP, BNP ####[facility] Cvgmosiadw88[address] [place], [place] [address]Dr. Abiel Clement Urea nitrogen/Creatinine [Mass ratio] 30.3 mg/mg Normal [facility] Comment on above: Performed By: #### C MP, BNP ####[facility] Xufughndrp8887 [place], [place] [address]In. Abiel Clement Albumin [Mass/Vol] 3.1 g/dL Critically low 3.4-5.0 [facility] Comment on above: Performed By: #### B RACING SECRETARY AND HANDICAPPER, CMP ####[facility] Fxdfcpymhr8006 [place], [place] [address]Tq. Abiel Clement Albumin/Globulin [Mass ratio] 0.7 {ratio} Normal [facility] Comment on above: Performed By: #### B RACING SECRETARY AND HANDICAPPER, CMP ####[facility] Fuefwzmdej4912 [place] [phone]. Abiel Clement ALP [Catalytic activity/Vol] 161 U/L Critically high 46-116 [facility] Comment on above: Performed By: #### B RACING SECRETARY AND HANDICAPPER, CMP ####[facility] Uvrcpnlmtb6226 [place] [phone]. Abiel Urbano ALT [Catalytic activity/Vol] 22 U/L Normal 14-59 [facility] Comment on above: Performed By: #### B RACING SECRETARY AND HANDICAPPER, CMP ####[facility] Jjtgzqmxdn0325 [place] [phone]. Abiel Clement Anion gap [Moles/Vol] 13.5 mmol/L Normal [facility] Comment on above: Performed By: #### B RACING SECRETARY AND HANDICAPPER, CMP ####[facility] Zyvrbuscfl5902 [place] [phone]. Abiel Urbano AST [Catalytic activity/Vol] 41 U/L Critically high 15-37 [facility] Comment on above: Performed By: #### B RACING SECRETARY AND HANDICAPPER, CMP ####[facility] Acvefffadp0505 [place] [phone]. Abiel Urbano Bilirubin [Mass/Vol] 0.5 mg/dL Normal 0.2-1.0 [facility] Comment on above: Performed By: #### B RACING SECRETARY AND HANDICAPPER, CMP ####[facility] Vkrythwhfx3142 [place] [phone]. Abiel Urbano Calcium [Mass/Vol] 9.4 mg/dL Normal 8.5-10.1 [facility] Comment on above: Performed By: #### B RACING SECRETARY AND HANDICAPPER, CMP ####[facility] Fuzficzjie6505 [place] [phone]. Abiel Clement Chloride [Moles/Vol] 98 mmol/L Normal 98-107 [facility] Comment on above: Performed By: #### B RACING SECRETARY AND HANDICAPPER, CMP ####[facility] Dzdqddiigs9066 [place] [phone]. Abiel Clement CO2 [Moles/Vol] 27.0 mmol/L Normal 21.0-32.0 [facility] Comment on above: Performed By: #### B RACING SECRETARY AND HANDICAPPER, CMP ####[facility] Xwlzjeaojk2701 [place] [address]Dr. Abiel Clement Creatinine [Mass/Vol] 1.08 mg/dL Critically high 0.55-1.02 [facility] Comment on above: Performed By: #### B RACING SECRETARY AND HANDICAPPER, CMP ####[facility] Hrpitgpjno[address] [place], [place] [address]Dr. Abiel Clement EGFR-AF CZECH >60 Normal >=60 [facility] Comment on above: Performed By: #### B RACING SECRETARY AND HANDICAPPER, CMP ####[facility] Igbrxssqmn3170 [place] [phone]. Abiel Clement EGFR-NON AF CZECH 51 mL/min/1.73m2 Critically low >=60 [facility] Comment on above: Performed By: #### B RACING SECRETARY AND HANDICAPPER, CMP ####[facility] Fcnqtwablo[address] [place], [place] [address]Dr. Abiel Clement Globulin (S) [Mass/Vol] 4.2 g/dL Normal [facility] Comment on above: Performed By: #### B RACING SECRETARY AND HANDICAPPER, CMP ####[facility] Qnfyrcaepr1212 [place] [phone]. Abiel Clement Glucose [Mass/Vol] 173 mg/dL Critically high 74-106 [facility] Comment on above: Performed By: #### B RACING SECRETARY AND HANDICAPPER, CMP ####[facility] Oklvodefvq807[address] [place], [place] [address]Dr. Abiel Clement Potassium [Moles/Vol] 4.5 mmol/L Normal 3.5-5.1 [facility] Comment on above: Performed By: #### B RACING SECRETARY AND HANDICAPPER, CMP ####[facility] Ckkqaiocwj8534 [place] [address]Dr. Abiel Urbano Protein [Mass/Vol] 7.3 g/dL Normal 6.4-8.2 [facility] Comment on above: Performed By: #### B RACING SECRETARY AND HANDICAPPER, CMP ####[facility] Ustamjaiqu68[address] [place], [place] [address]Dr. Abiel Clement Sodium [Moles/Vol] 134 mmol/L Critically low 136-145 [facility] Comment on above: Performed By: #### B RACING SECRETARY AND HANDICAPPER, CMP ####[facility] Zpcvxzsgwz3767[address] [place], [place] [address]Dr. Abiel Clement Urea nitrogen [Mass/Vol] 37.0 mg/dL Critically high 7.0-18.0 [facility] Comment on above: Performed By: #### B RACING SECRETARY AND HANDICAPPER, CMP ####[facility] Prwpsybicv9889[address] [place], [place] [address]Dr. Abiel Clement Urea nitrogen/Creatinine [Mass ratio] 34.3 mg/mg Normal [facility] Comment on above: Performed By: #### B RACING SECRETARY AND HANDICAPPER, CMP ####[facility] Cjzgmivrqr[address] [place], [place] [address]Dr. Abiel Clement XR ANKLE RT MIN 3 VIEWSon XR ANKLE RT MIN 3 VIEWS Normal [facility] XR CHEST 1 Von 03-13-2022 XR CHEST 1 V Normal [facility] XR FOOT RT MIN 3 VIEWSon XR FOOT RT MIN 3 VIEWS Normal [facility] CBC AUTO DIFFon 03-12-2022 BASO # 0.1 103/ul Normal 0.0-0.1 [facility] Comment on above: Performed By: #### C BC ####[facility] Gwajyujkjl8[address] [place], [place] [address]Dr. Abiel Clement Basophils/100 WBC (Bld) 0.7 % Normal 0.2-2.0 [facility] Comment on above: Performed By: #### C BC ####[facility] Ltsrxytavk210[address] [place], [place] [address]Dr. Abiel Clement EO # 0.2 103/ul Normal 0.0-0.7 [facility] Comment on above: Performed By: #### C BC ####[facility] Yiwgykucjn6851 [place] [address]Dr. Abiel Urbano Eosinophils/100 WBC (Bld) 2.1 % Normal 0.9-7.0 [facility] Comment on above: Performed By: #### C BC ####[facility] Mvbghiminb876[address] [place], [place] [address]Dr. Abiel Urbano Erythrocyte distribution width (RBC) [Ratio] 13.1 % Normal 11.0-15.0 [facility] Comment on above: Performed By: #### C BC ####[facility] Onvempdeza040[address] [place], [place] [address]Dr. Abiel Clement Hematocrit (Bld) [Volume fraction] 33.9 % Critically low 36.0-48.0 [facility] Comment on above: Performed By: #### C BC ####[facility] Rffrdhwukl455[address] [place], [place] [address]Dr. Abiel Clement Hemoglobin (Bld) [Mass/Vol] 11.0 g/dL Critically low 12.0-16.0 [facility] Comment on above: Performed By: #### C BC ####[facility] Igkvtcuvxe723[address] [place], [place] [address]Dr. Suyapaviviana Urbano IG # 0.04 10e3/ul Critically high 0.00-0.03 [facility] Comment on above: Performed By: #### C BC ####[facility] T[address]jvxnlje90[address] [place], [place] [address]Dr. Abiel Clement IG % 0.4 % Normal 0.0-0.5 [facility] Comment on above: Performed By: #### C BC ####[facility] Oivydzppkj037[address] [place], [place] [address]Dr. Abiel Clement LYMPH # 2.0 103/ul Normal 1.2-3.8 [facility] [facility] Comment on above: Performed By: #### C BC ####[facility] Cuuojzykpl[address] [place], [place] [address]DrKasia Clement Lymphocytes/100 WBC (Bld) 20.0 % Critically low 20.5-60.0 [facility] Comment on above: Performed By: #### C BC ####[facility] Invosovjaz[address] [place] [address]DrKasia Clement MANUAL DIFF REQ NO Normal [facility] Comment on above: Performed By: #### C BC ####[facility] Iiceuehazs4167 [place] [address]DrKasia Clement MCH (RBC) [Entitic mass] 29.5 pg Normal 26.7-34.0 [facility] Comment on above: Performed By: #### C BC ####[facility] Inhwsbsbjq777[address] [place], [place] [address]DrKasia Clement MCHC (RBC) [Mass/Vol] 32.4 g/dL Normal 29.9-35.2 [facility] Comment on above: Performed By: #### C BC ####[facility] Hmquvblras32[address] [place], [place] [address]DrKasia Clement MCV (RBC) [Entitic vol] 90.9 fL Normal 81.0-99.0 [facility] Comment on above: Performed By: #### C BC ####[facility] Jhlviiijbl2438[address] [place], [place] [address]DrKasia Clement MONO # 1.0 103/ul Critically high 0.3-0.8 [facility] Comment on above: Performed By: #### C BC ####[facility] Wfuabvysig078[address] [place], [place] [address]DrKasia Clement Monocytes/100 WBC (Bld) 10.3 % Normal 1.7-12.0 [facility] Comment on above: Performed By: #### C BC ####[facility] Oujynucbst9718[address] [place], [place] [address]DrKasia Clement NEUT # 6.5 103/ul Normal 1.4-6.5 [facility] Comment on above: Performed By: #### C BC ####[facility] Soqlqtkydi600[address] [place], [place] [address]DrKasia Clement Neutrophils/100 WBC (Bld) 66.5 % Normal 43.0-75.0 [facility] Comment on above: Performed By: #### C BC ####[facility] Vujxavbrnz0867 [place] [id number] Clement Platelet mean volume (Bld) [Entitic vol] 10.8 fL Normal 9.5-13.5 [facility] Comment on above: Performed By: #### C BC ####[facility] Pcalzcamku0257 [place] [address]DrKasia Clement PLT 278 103/ul Normal 150-450 [facility] Comment on above: Performed By: #### C BC ####[facility] Cwkprbqqbm6036[address] [place], [place] [address]DrKasia Clement RBC 3.73 106/ul Critically low 4.20-5.40 [facility] Comment on above: Performed By: #### C BC ####[facility] Ijqhdbtwbp6885[address] [place], [place] [address]DrKasia Clement WBC 9.7 103/ul Normal 4.0-11.0 [facility] Comment on above: Performed By: #### C BC ####[facility] Mftbnkzlxf1244[address] [place], [place] [address]DrKasia Clement PROF CHEM 8 (BAS METB)on Anion gap [Moles/Vol] 11.5 mmol/L Normal [facility] Comment on above: Performed By: #### B MP ####[facility] Redduocovh234[address] [place], [place] [address]DrKasia Clement Calcium [Mass/Vol] 8.9 mg/dL Normal 8.5-10.1 [facility] Comment on above: Performed By: #### B MP ####[facility] Inzmreqtnh486[address] [place], [place] [address]DrKasia Clement Chloride [Moles/Vol] 102 mmol/L Normal 98-107 [facility] Comment on above: Performed By: #### B MP ####[facility] Exjbkpaxjd8[address] [place], [place] [id number] Beebe Urbano CO2 [Moles/Vol] 28.4 mmol/L Normal 21.0-32.0 [facility] Comment on above: Performed By: #### B MP ####[facility] Jmsxltaoxd5264 [place] [address]Dr. Suyapaviviana Urbano Creatinine [Mass/Vol] 1.10 mg/dL Critically high 0.55-1.02 [facility] Comment on above: Performed By: #### B MP ####[facility] Oyocugghko9[address] [place] [address]Dr. Abiel Clement EGFR-AF CZECH >60 Normal >=60 [facility] Comment on above: Performed By: #### B MP ####[facility] Fddhotnlbf449[address] [place], [place] [address]Dr. Abiel Clement EGFR-NON AF CZECH 50 mL/min/1.73m2 Critically low >=60 [facility] Comment on above: Performed By: #### B MP ####[facility] Tpalhllmpt801[address] [place], [place] [address]Dr. Abiel Clemnet Glucose [Mass/Vol] 106 mg/dL Normal 74-106 [facility] Comment on above: Performed By: #### B MP ####[facility] Wstzxusatg2330[address] [place], [place] [address]Dr. Abiel Clement Potassium [Moles/Vol] 3.9 mmol/L Normal 3.5-5.1 [facility] Comment on above: Performed By: #### B MP ####[facility] Ooonrynsza6628[address] [place], [place] [address]Dr. Abiel Clement Sodium [Moles/Vol] 138 mmol/L Normal 136-145 [facility] Comment on above: Performed By: #### B MP ####[facility] Oykhjmyszg9775[address] [place], [place] [address]Dr. Abiel Clement Urea nitrogen [Mass/Vol] 38.0 mg/dL Critically high 7.0-18.0 [facility] Comment on above: Performed By: #### B MP ####[facility] Kjjgfoohtk8864[address] [place], [place] [address]Dr. Abiel Clement Urea nitrogen/Creatinine [Mass ratio] 34.5 mg/mg Normal [facility] Comment on above: Performed By: #### B MP ####[facility] Eotjwrodrl7[address] [place] [address]Dr. Abiel Clement XR FOOT LT MIN 3 VIEWSon XR FOOT LT MIN 3 VIEWS Normal [facility] POINT OF CARE GLUCOSEon Glucose [Mass/Vol] 389 mg/dL Critically high [facility]106 [facility] Comment on above: Performed By: #### P OCGLUC ####[facility] Pngnfwhxgd5514 [place] [id number]. Abiel Clement Glucose [Mass/Vol] 414 mg/dL Critically high [facility]106 [facility] Comment on above: Performed By: #### P OCGLUC ####[facility] Tawksvmpuq5259 [place] [address]Dr. Abiel Clement Glucose [Mass/Vol] 295 mg/dL Critically high [address] [place] [address] Comment on above: Performed By: #### P OCGLUC ####[facility] Bctdoxxnoj9726 [place] [phone]. Abiel Clement Glucose [Mass/Vol] 323 mg/dL Critically high [address] [place] [address] Comment on above: Performed By: #### P OCGLUC ####[facility] Ycybmhuhaf8508 [place] [address]Dr. Abiel Clement Covid-19 PCR ([facility])on SARS-CoV-2 (COVID-19) RNA CLARIBEL+probe Ql (Unsp spec) Not detected Normal NOT DETECTED [facility] Comment on above: Result Comment: When [...] for this test is supported by the [employer] of Health and Human Service's declaration that [...] longer be used). Performed By: #### C [facility] ####[facility] Xwwnepfwti3499[address] [place], [place] [address]Dr. Abiel Urbano CBC AUTO DIFFon 03-01-2022 BASO # 0.1 103/ul Normal 0.0-0.1 [facility] Comment on above: Performed By: #### C BC ####[facility] Lsmrneftpv884[address] [place], [place] [address]Dr. Abiel Clement Basophils/100 WBC (Bld) 0.7 % Normal 0.2-2.0 [facility] Comment on above: Performed By: #### C BC ####[facility] Ofwxnqddft184379 [address] [place], [place] [address]Dr. Abiel Clement EO # 0.2 103/ul Normal 0.0-0.7 [facility] Comment on above: Performed By: #### C BC ####[facility] Tepjhbttpe75[address] [place], [place] [address]Dr. Suyapaviviana Clement Eosinophils/100 WBC (Bld) 2.6 % Normal 0.9-7.0 [facility] Comment on above: Performed By: #### C BC ####[facility] Dklawfmorm824[address] [place], [place] [address]Dr. Suyapaviviana Clement Erythrocyte distribution width (RBC) [Ratio] 13.2 % Normal 11.0-15.0 [facility] Comment on above: Performed By: #### C BC ####[facility] Bbqghgapga818[address] [place], [place] [address]Dr. Abiel Clement Hematocrit (Bld) [Volume fraction] 42.4 % Normal 36.0-48.0 [facility] Comment on above: Performed By: #### C BC ####[facility] Ltgodhqlys4138 [place] [id number]. Abiel Clement Hemoglobin (Bld) [Mass/Vol] 13.9 g/dL Normal 12.0-16.0 [facility] Comment on above: Performed By: #### C BC ####[facility] Kgyvoqhxcj1790 [place] [phone]. Abiel Clement IG # 0.02 10e3/ul Normal 0.00-0.03 [facility] Comment on above: Performed By: #### C BC ####[facility] Ftvmuqshir3155 [place] [id number]. Abiel Clement IG % 0.3 % Normal 0.0-0.5 [facility] Comment on above: Performed By: #### C BC ####[facility] Itcjyrbqdf5416 [place] [address]Dr. Abiel Clement LYMPH # 1.8 103/ul Normal 1.2-3.8 [facility] Comment on above: Performed By: #### C BC ####[facility] Utwepzvoqk5201 [place] [phone]. Abiel Clement Lymphocytes/100 WBC (Bld) 24.1 % Normal 20.5-60.0 [facility] Comment on above: Performed By: #### C BC ####[facility] Tovahdnezd6875 [place] [id number]. Abiel Clement MANUAL DIFF REQ NO Normal [facility] Comment on above: Performed By: #### C BC ####[facility] Maqhyknire8729 [place] [phone]. Abiel Clement MCH (RBC) [Entitic mass] 29.4 pg Normal 26.7-34.0 [facility] Comment on above: Performed By: #### C BC ####[facility] Wxqxvtvbkc7239 [place] [phone]. Abiel Clement MCHC (RBC) [Mass/Vol] 32.8 g/dL Normal 29.9-35.2 [facility] Comment on above: Performed By: #### C BC ####[facility] Hfgrxmixhy4585 [place] [phone]. Abiel Urbano MCV (RBC) [Entitic vol] 89.8 fL Normal 81.0-99.0 [facility] Comment on above: Performed By: #### C BC ####[facility] Ibzicwxydw9054 [place] [address]Dr. Abiel Clement MONO # 0.7 103/ul Normal 0.3-0.8 [facility] Comment on above: Performed By: #### C BC ####[facility] Mdjsglsnsc4930[address] [place], [place] [address]Dr. Suyapaviviana Clement Monocytes/100 WBC (Bld) 9.2 % Normal 1.7-12.0 [facility] Comment on above: Performed By: #### C BC ####[facility] Hpwcsddwvn617[address] [place], [place] [address]Dr. Abiel Urbano NEUT # 4.6 103/ul Normal 1.4-6.5 [facility] Comment on above: Performed By: #### C BC ####[facility] Cefnopuzrw1770[address] [place], [place] [address]Dr. Suyapaviviana Clement Neutrophils/100 WBC (Bld) 63.1 % Normal 43.0-75.0 [facility] Comment on above: Performed By: #### C BC ####[facility] Zghyecwsqf3337[address] [place], [place] [address]Dr. Abiel Urbano Platelet mean volume (Bld) [Entitic vol] 11.4 fL Normal 9.5-13.5 [facility] Comment on above: Performed By: #### C BC ####[facility] Vaiguofhuw3750[address] [place], [place] [address]Dr. Abiel Urbano PLT 309 103/ul Normal 150-450 [facility] Comment on above: Performed By: #### C BC ####[facility] Iznydekzum832[address] [place], [place] [address]Dr. Abiel Clement RBC 4.72 106/ul Normal 4.20-5.40 [facility] Comment on above: Performed By: #### C BC ####[facility] Qhtrjhkhjx850979 [address] [place], [place] [address]Dr. Abiel Clement WBC 7.3 103/ul Normal 4.0-11.0 [facility] Comment on above: Performed By: #### C BC ####[facility] Lnvtxeczmo3655 [place] [address]Dr. Abiel Urbano PROF CHEM 8 (BAS METB)on Anion gap [Moles/Vol] 12.2 mmol/L Normal [facility] Comment on above: Performed By: #### B MP ####[facility] Piiivrgnar4034 [place] [address]Dr. Abiel Urbano Calcium [Mass/Vol] 9.2 mg/dL Normal 8.5-10.1 [facility] Comment on above: Performed By: #### B MP ####[facility] Jsqgpcksty2345[address] [place], [place] [address]Dr. Abiel Clement Chloride [Moles/Vol] 102 mmol/L Normal 98-107 [facility] Comment on above: Performed By: #### B MP ####[facility] Vtgxdmuqlr3475[address] [place], [place] [address]Dr. Abiel Urbano CO2 [Moles/Vol] 26.9 mmol/L Normal 21.0-32.0 [facility] Comment on above: Performed By: #### B MP ####[facility] Tpsyscugjo646[address] [place], [place] [address]Dr. Suyapaviviana Urbano Creatinine [Mass/Vol] 0.99 mg/dL Normal 0.55-1.02 [facility] Comment on above: Performed By: #### B MP ####[facility] Jbiszvtoug0074 [place] [address]Dr. Abiel Clement EGFR-AF CZECH >=60 Normal >=60 [facility] Comment on above: Performed By: #### B MP ####[facility] Yttavjazsx5610[address] [place], [place] [address]Dr. Abiel Clement EGFR-NON AF CZECH 57 mL/min/1.73m2 Critically low >=60 [facility] Comment on above: Performed By: #### B MP ####[facility] Dyjsfesxxb7645[address] [place], [place] [address]Dr. Abiel Clement Glucose [Mass/Vol] 103 mg/dL Normal 74-106 [facility] Comment on above: Performed By: #### B MP ####[facility] Lzxxlceotk3680 [place] [address]Dr. Abiel Clement Potassium [Moles/Vol] 4.1 mmol/L Normal 3.5-5.1 [facility] Comment on above: Performed By: #### B MP ####[facility] Xmttvlfcel7119 [place] [address]Dr. Abiel Clement Sodium [Moles/Vol] 137 mmol/L Normal 136-145 [facility] Comment on above: Performed By: #### B MP ####[facility] Qphebfinmg5059 [place] [address]Dr. Abiel Clement Urea nitrogen [Mass/Vol] 27.0 mg/dL Critically high 7.0-18.0 [facility] Comment on above: Performed By: #### B MP ####[facility] Dqbvddviyq2882 [place] [address]Dr. Abiel Clement Urea nitrogen/Creatinine [Mass ratio] 27.3 mg/mg Normal [facility] Comment on above: Performed By: #### B MP ####[facility] Npptphihkz5549 [place] [address]Dr. Abiel Clement PROTIMEon 03-01-2022 INR Coag (PPP) [Relative time] 0.97 {INR} Normal [facility] Comment on above: Performed By: #### P TT, PT ####[facility] Vpopqdtrvx9385 [place] [address]Dr. Abiel Clement INR GUIDELINES SEE BELOW Normal [facility] Comment on above: Result Comment: GELY RED INR: 2.0 - 3.0 CONDITIONS NOT LISTED BELOW 2.5 - 3.5 FOR PROSTHETIC HEART VALVE REPLACEMENT 2.5 - 3.5 RECURRENT THROMBOSIS Performed By: #### P TT, PT ####[facility] Stqrlogfrc1455 [place] [address]Dr. Abiel Clement PT Coag (PPP) [Time] 10.5 s Normal 9.0-11.6 [facility] Comment on above: Performed By: #### P TT, PT ####[facility] Tjfncbdkxn6[address] [place], [place] [address]Dr. Abiel Clement PTTon 03-01-2022 aPTT Coag (Bld) [Time] 24.8 s Normal 22.3-36.2 [facility] Comment on above: Performed By: #### P TT, PT ####[facility] Afndnnapvg712979 [address] [place], [place] [address]Dr. Abiel Clement US CAROTID ART BILon 022 US CAROTID ART VIC Normal [facility] XR FOOT VIC MIN 3 VIEWSon XR FOOT VIC MIN 3 VIEWS Normal [facility] AMYLASEon 11-03-2021 Amylase [Catalytic activity/Vol] 66 U/L Normal 31-110 [facility] Comment on above: Performed By: #### C MP, BENNY, LIPA ####[facility] Kmwkgooehd8[address] [place], [place] [address]Dr. Abiel Clement CBC AUTO DIFFon 11-03-2021 BASO # 0.1 103/ul Normal 0.0-0.1 [facility] Comment on above: Performed By: #### C BC ####[facility] Kahzbydqij567[address] [place], [place] [address]Dr. Abiel Urbano Basophils/100 WBC (Bld) 1.1 % Normal 0.2-2.0 [facility] Comment on above: Performed By: #### C BC ####[facility] Ahmtmykgar980979 [address] [place], [place] [address]Dr. Abiel Clement EO # 0.1 103/ul Normal 0.0-0.7 [facility] Comment on above: Performed By: #### C BC ####[facility] Kfzsztgjsq807[address] [place], [place] [address]Dr. Abiel Urbano Eosinophils/100 WBC (Bld) 2.5 % Normal 0.9-7.0 [facility] Comment on above: Performed By: #### C BC ####[facility] Vksjbztwbq836[address] [place], [place] [address]Dr. Abiel Clement Erythrocyte distribution width (RBC) [Ratio] 14.6 % Normal 11.0-15.0 [facility] Comment on above: Performed By: #### C BC ####[facility] Mkktlgoktv3034 [place] [address]Dr. Abiel Clement Hematocrit (Bld) [Volume fraction] 47.4 % Normal 36.0-48.0 [facility] Comment on above: Performed By: #### C BC ####[facility] Ldvkdmvppv0111[address] [place], [place] [address]Dr. Abiel Clement Hemoglobin (Bld) [Mass/Vol] 15.4 g/dL Normal 12.0-16.0 [facility] Comment on above: Performed By: #### C BC ####[facility] Smauhsaaoj7868[address] [place], [place] [address]Dr. Suyapaviviana Clement IG # 0.01 10e3/ul Normal 0.00-0.03 [facility] Comment on above: Performed By: #### C BC ####[facility] Ckopryycgt7332[address] [place], [place] [address]Dr. Abiel Clement IG % 0.2 % Normal 0.0-0.5 [facility] Comment on above: Performed By: #### C BC ####[facility] Xrbenayefm157679 [address] [place], [place] [address]Dr. Abiel Clement LYMPH # 1.6 103/ul Normal 1.2-3.8 [facility] Comment on above: Performed By: #### C BC ####[facility] Wanujbxhoq3417[address] [place], [place] [address]Dr. Abiel Urbano Lymphocytes/100 WBC (Bld) 27.3 % Normal 20.5-60.0 [facility] Comment on above: Performed By: #### C BC ####[facility] Lqbtlamwij2489[address] [place], [place] [address]Dr. Suyapaviviana Clement MANUAL DIFF REQ NO Normal [facility] Comment on above: Performed By: #### C BC ####[facility] Apidwcdudo350[address] [place], [place] [address]Dr. Abiel Clement MCH (RBC) [Entitic mass] 28.1 pg Normal 26.7-34.0 [facility] Comment on above: Performed By: #### C BC ####[facility] Xexknoehqi1410 [place] [address]Dr. Abiel Clement MCHC (RBC) [Mass/Vol] 32.5 g/dL Normal 29.9-35.2 [facility] Comment on above: Performed By: #### C BC ####[facility] Udutgugqbe4[address] [place], [place] [address]Dr. Abiel Urbano MCV (RBC) [Entitic vol] 86.5 fL Normal 81.0-99.0 [facility] Comment on above: Performed By: #### C BC ####[facility] Lwadkqthey7880[address] [place], [place] [address]Dr. Abiel Clement MONO # 0.5 103/ul Normal 0.3-0.8 [facility] Comment on above: Performed By: #### C BC ####[facility] Adcjoffgbq349[address] [place], [place] [address]Dr. Suyapaviviana Clement Monocytes/100 WBC (Bld) 8.5 % Normal 1.7-12.0 [facility] Comment on above: Performed By: #### C BC ####[facility] Ecoetgtcmq510[address] [place], [place] [address]Dr. Abiel Urbano NEUT # 3.4 103/ul Normal 1.4-6.5 [facility] Comment on above: Performed By: #### C BC ####[facility] Gamujodhuj8417[address] [place], [place] [address]Dr. Abiel Clement Neutrophils/100 WBC (Bld) 60.4 % Normal 43.0-75.0 [facility] Comment on above: Performed By: #### C BC ####[facility] Tyuinekedn5615[address] [place], [place] [address]Dr. Abiel Clement Platelet mean volume (Bld) [Entitic vol] 11.6 fL Normal 9.5-13.5 [facility] Comment on above: Performed By: #### C BC ####[facility] V[address]ssgpmeti[address] [place], [place] [id number]. Abiel Clement PLT 257 103/ul Normal 150-450 [facility] Comment on above: Performed By: #### C BC ####[facility] Cvkfktisse6094 [place] [address]Dr. Abiel Clement RBC 5.48 106/ul Critically high 4.20-5.40 [facility] Comment on above: Performed By: #### C BC ####[facility] Xyryrcqdbl2572 [place] [address]Dr. Abiel Clement WBC 5.7 103/ul Normal 4.0-11.0 [facility] Comment on above: Performed By: #### C BC ####[facility] Zqounsddnf66[address] [place], [place] [address]Dr. Abiel Clement LIPASEon 11-03-2021 Lipase [Catalytic activity/Vol] 32.0 U/L Normal 23.0-300.0 [facility] Comment on above: Performed By: #### C MP, BENNY, LIPA ####[facility] Ecbxwitzcx3502 [place] [address]Dr. Suyapaviviana Clement PROF 14(COMP METB)on 022 Albumin [Mass/Vol] 3.6 g/dL Normal 3.5-5.0 [facility] Comment on above: Performed By: #### C MP, BENNY, LIPA ####[facility] Tzgazduppp9228 [place] [address]Dr. Abiel Urbano Albumin/Globulin [Mass ratio] 0.8 {ratio} Normal [facility] Comment on above: Performed By: #### C MP, BENNY, LIPA ####[facility] Akdoreohcd6487 [place] [address]Dr. Abiel Urbano ALP [Catalytic activity/Vol] 325 U/L Critically high 38-126 [facility] Comment on above: Performed By: #### C MP, BENNY, LIPA ####[facility] Kjqevxxulu5626 [place] [address]Dr. Abiel Clement ALT [Catalytic activity/Vol] 103 U/L Critically high 9-52 [facility] Comment on above: Performed By: #### C MP, BENNY, LIPA ####[facility] Seobwgzdxt1030 [place] [address]Dr. Abiel Clement Anion gap [Moles/Vol] 13.1 mmol/L Normal [facility] Comment on above: Performed By: #### C MP, BENNY, LIPA ####[facility] Rcuffdaazx3761 [place] [address]Dr. Abiel Clement AST [Catalytic activity/Vol] 78 U/L Critically high 14-36 [facility] Comment on above: Performed By: #### C MP, BENNY, LIPA ####[facility] Yhyhxigsoa4167 [place] [address]Dr. Abiel Clement Bilirubin [Mass/Vol] 0.4 mg/dL Normal 0.2-1.3 [facility] Comment on above: Performed By: #### C MP, BENNY, LIPA ####[facility] Fkerwarpkf[address] [place], [place] [address]Dr. Abiel Clement Calcium [Mass/Vol] 9.6 mg/dL Normal 8.4-10.2 [facility] Comment on above: Performed By: #### C MP, BENNY, LIPA ####[facility] [facility] [address] [place], [place] [address]Dr. Abiel Clement Chloride [Moles/Vol] 102 mmol/L Normal 98-107 [facility] Comment on above: Performed By: #### C MP, BENNY, LIPA ####[facility] [address] [place], [place] [address]Dr. Abiel Clement CO2 [Moles/Vol] 21.5 mmol/L Critically low 22.0-30.0 [facility] Comment on above: Performed By: #### C MP, BENNY, LIPA ####[facility] [address] [place], [place] [address]Dr. Abiel Clement Creatinine [Mass/Vol] 1.51 mg/dL Critically high 0.52-1.04 [facility] Comment on above: Performed By: #### C MP, BENNY, LIPA ####[facility] [address] [place] [address]Dr. Abiel Clement EGFR-AF CZECH 42 mL/min/1.73m2 Critically low >=60 [facility] Comment on above: Performed By: #### C MP, BENNY, LIPA ####[facility] [address] [place] [address]Dr. Abiel Clement EGFR-NON AF CZECH 35 mL/min/1.73m2 Critically low >=60 [facility] Comment on above: Performed By: #### C MP, BENNY, LIPA ####[facility] [address] [place] [address]Dr. Abiel Clement Globulin (S) [Mass/Vol] 4.5 g/dL Normal [facility] Comment on above: Performed By: #### C MP, BENNY, LIPA ####[facility] [address] [place] [address]Dr. Abiel Clement Glucose [Mass/Vol] 167 mg/dL Critically high 74-106 T [facility] Comment on above: Performed By: #### C MP, BENNY, LIPA ####[facility] [address] [place] [address]Dr. Abiel Clement Potassium [Moles/Vol] 4.6 mmol/L Normal 3.4-5.0 [facility] Comment on above: Performed By: #### C MP, BENNY, LIPA ####[facility] [address] [place] [address]Dr. Abiel Clement Protein [Mass/Vol] 8.1 g/dL Normal 6.1-8.2 [facility] Comment on above: Performed By: #### C MP, BENNY, LIPA ####[facility] [address] [place] [address]Dr. Abiel Clement Sodium [Moles/Vol] 132 mmol/L Critically low 137-145 [facility] Comment on above: Performed By: #### C MP, BENNY, LIPA ####[facility] [address] [place] [address]Dr. Abiel Clement Urea nitrogen [Mass/Vol] 35.0 mg/dL Critically high 7.0-17.0 [facility] Comment on above: Performed By: #### C BENNY PEDERSEN, LIPA ####[facility] [address] [place], [place] [address]Vp. Abiel Clement Urea nitrogen/Creatinine [Mass ratio] 23.2 mg/mg Normal [facility] Comment on above: Performed By: #### C MP BENNY, LIPA ####[facility] [address] [place], [place] [address]Py. Abiel Clement XR ABD FLAT UP_PA Tl 11-03 XR ABD FLAT UP_PA CH Normal [facility] XR FOOT LT MIN 3 VIEWSon XR FOOT LT MIN 3 VIEWS Normal [facility] COMPREHENSIVE METABOLIC PANE Neftali 09-23-2021 Albumin [Mass/Vol] 4.1 g/dL Normal 3.6-5.1 [facility] Comment on above: Performed By: #### 1 023, 7600 #### [facility] [place] [address] Therapy Technician: Christian Dove MD Albumin/Globulin [Mass ratio] 1.2 {ratio} Normal 1.0-2.5 [facility] Comment on above: Performed By: #### 1 023, 7600 #### [facility] [place] [address] Therapy Technician: Christian Dove MD ALP [Catalytic activity/Vol] 206 U/L High 37-153 [facility] Comment on above: Performed By: #### 1 0231, 7600 #### [facility] [place] [address] Therapy Technician: Christian Dove MD ALT [Catalytic activity/Vol] 32 U/L High 6-29 [facility] Comment on above: Result Comment: NO C OLLECTION DATE RECEIVED. WE HAVE USED THE DATE THE SPECIMEN WAS RECEIVED BY THIS LABORATORY THE COLLECTION DATE. IF THIS IS INCORRECT, PLEASE CONTACT CLIENT SERVICES. PHONE NUMBER: [phone] Performed By: #### 1 0231, 7600 #### [facility] of [place] [address] Therapy Technician: Christian Dove MD AST [Catalytic activity/Vol] 28 U/L Normal 10-35 [facility] Comment on above: Performed By: #### 1 0231, 7600 #### [facility] of [place] [address] Therapy Technician: Christian Dove MD Bilirubin [Mass/Vol] 0.5 mg/dL Normal 0.2-1.2 [facility] Comment on above: Performed By: #### 1 023, 7600 #### [facility] of [place] [address] Therapy Technician: Christian Dove MD BUN/CREATININE RATIO NOT APPLICABLE Normal 6-22 [facility] Comment on above: Performed By: #### 1 023, 7600 #### [facility] [place] [address] Therapy Technician: Christian Dove MD Calcium [Mass/Vol] 9.6 mg/dL Normal 8.6-10.4 [facility] Comment on above: Performed By: #### 1 0231, 7600 #### [facility] [place] [address] Therapy Technician: Christian Dove MD Chloride [Moles/Vol] 101 mmol/L Normal 98-110 [facility] Comment on above: Performed By: #### 1 0231, 7600 #### [facility] of [place] [address] Therapy Technician: Christian Dove MD CO2 [Moles/Vol] 27 mmol/L Normal 20-32 [facility] Comment on above: Performed By: #### 1 0231, 7600 #### [facility] of [place] [address] Therapy Technician: Christian Dove MD Creatinine [Mass/Vol] 0.88 mg/dL Normal 0.50-0.99 [facility] Comment on above: Result Comment: For patients >49 years of age, the reference limit for Creatinine is approximately 13% higher for people identified as -Omani. Performed By: #### 1 230, 7600 #### [facility] [place] [address] Therapy Technician: Christian Dove MD eGFR NON-AFR. CZECH 71 mL/min/1.73m2 Normal > OR = 60 [facility] Comment on above: Performed By: #### 1 023, 7600 #### [facility] [place] [address] Therapy Technician: Christian Dove MD GFR/1.73 sq M.predicted among blacks MDRD (S/P/Bld) [Vol rate/Area] 82 mL/min/{1.73_m2} Normal > OR = 60 [facility] Comment on above: Performed By: #### 1 230, 0 #### [facility] [place] [address] Therapy Technician: Christian Dove MD Globulin (S) [Mass/Vol] 3.3 g/dL Normal 1.9-3.7 [facility] Comment on above: Performed By: #### 1 023, 7600 #### [facility] [place] [address] Therapy Technician: Christian Dove MD Glucose [Mass/Vol] 269 mg/dL High 65-99 [facility] Comment on above: Result Comment: Fasting reference interval For someone without known diabetes, a glucose value >125 mg/dL indicates that they may have diabetes and this should be confirmed with a follow-up test. Performed By: #### 1 023, 7600 #### [facility] [place] [address] Therapy Technician: Christian Dove MD Potassium [Moles/Vol] 4.3 mmol/L Normal 3.5-5.3 [facility] Comment on above: Performed By: #### 1 023, 7600 #### [facility] [address] [place] [address] Therapy Technician: Christian Dove MD Protein [Mass/Vol] 7.4 g/dL Normal 6.1-8.1 [facility] Comment on above: Performed By: #### 1 0231, 7600 #### [facility] [place] [address] Therapy Technician: Christian Dove MD Sodium [Moles/Vol] 135 mmol/L Normal 135-146 [facility] Comment on above: Performed By: #### 1 0231, 7600 #### [facility] [place] [address] Therapy Technician: Christian Dove MD Urea nitrogen [Mass/Vol] 18 mg/dL Normal 7-25 [facility] Comment on above: Performed By: #### 1 023, 7600 #### [facility] [place] [address] Therapy Technician: Christian Dove MD LIPID PANEL, [facility] 09-05 Cholesterol [Mass/Vol] 123 mg/dL Normal <200 [facility] Comment on above: Performed By: #### 1 0231, 7600 #### [facility] [place] [address] Therapy Technician: Christian Dove MD Cholesterol in HDL [Mass/Vol] 36 mg/dL Low > OR = 50 [facility] Comment on above: Performed By: #### 1 0231, 7600 #### [facility] [place] [address] Therapy Technician: Christian Dove MD Cholesterol in LDL [Mass/Vol] [...] Ciro PENN et al. MARIA T. 2013;310(19): 9008-8064 (http://[email or web address]/[email or web address]) Performed By: #### 1 230, 7600 #### [facility] of [address], [address] [place] [address] Therapy Technician: Christian Dove MD Cholesterol.total/Cho lesterol in HDL [Mass ratio] 3.4 {ratio} Normal <5.0 [facility] Comment on above: Performed By: #### 1 230, 0 #### [facility] [address], [address] [place] [address] Therapy Technician: Christian Dove MD NON HDL CHOLESTEROL 87 mg/dL (calc) Normal <130 [facility] Comment on above: Result Comment: For patients with diabetes plus 1 major ASCVD risk factor, treating to a non-HDL-C goal of <100 mg/dL (LDL-C of <70 mg/dL) is considered a therapeutic option. Performed By: #### 1 230, 0 #### [facility] [address], [address] [place] [address] Therapy Technician: Christian Dove MD Triglyceride [Mass/Vol] 134 mg/dL Normal <150 [facility] Comment on above: Performed By: #### 1 230, 0 #### [facility] [address], [address] [place] [address] Therapy Technician: Christian Dove MD COVID Quick Testingon 2020 Result Positive [facility] Other POC GLUCOSE LABon 07-14-2020 Glucose [Mass/Vol] 311 mg/dL High 70-100 [facility] Comment on above: Performed By: #### 8 7649 #### [facility] [address] [place] [address], [facility] Glucose [Mass/Vol] 231 mg/dL High 70-100 [facility] Comment on above: Performed By: #### 8 8892 #### [facility] [address] [place] [address], [place] POC GLUCOSE LABon 07-13-2020 Glucose [Mass/Vol] 173 mg/dL High 70-100 [facility] Comment on above: Performed By: #### 8 5499 #### [facility] [address] [place] [address], [place] Glucose [Mass/Vol] 117 mg/dL High 70-100 [facility] Comment on above: Performed By: #### 3 1792 #### [facility] [address] [place] [address], [place] Glucose [Mass/Vol] 282 mg/dL High 70-100 [facility] Comment on above: Performed By: #### 8 5499 #### [facility] [address] [place] [address], [place] Glucose [Mass/Vol] 288 mg/dL High 70-100 [facility] Comment on above: Performed By: #### 8 5499 ####[facility] [place] [address], [place] POC GLUCOSE LABon 07-12-2020 Glucose [Mass/Vol] 281 mg/dL High 70-100 [facility] Comment on above: Performed By: #### 8 5499 ####[facility] [place] [address], [place] Glucose [Mass/Vol] 102 mg/dL High 70-100 [facility] Comment on above: Performed By: #### 8 5499 ####[facility] [place] [address], [place] Glucose [Mass/Vol] 213 mg/dL High 70-100 [facility] Comment on above: Performed By: #### 8 5499 ####[facility] [place] [address], [place] Glucose [Mass/Vol] 195 mg/dL High 70-100 [facility] Comment on above: Performed By: #### 3 1792 #### [facility] [address] [place] [address], [place] POC GLUCOSE LABon 07-11-2020 Glucose [Mass/Vol] 221 mg/dL High 70-100 [facility] Comment on above: Performed By: #### 8 5499 #### [facility] [address] [place] [address], [place] Glucose [Mass/Vol] 201 mg/dL High 70-100 [facility] Comment on above: Performed By: #### 0 0071, 31832 #### [facility] [address] [place] [address], [place] Glucose [Mass/Vol] 279 mg/dL High 70-100 [facility] Comment on above: Performed By: #### 8 5499 ####[facility] [place] [address], [place] Glucose [Mass/Vol] 214 mg/dL High 70-100 [facility] Comment on above: Performed By: #### 3 1792 #### [facility] [address] [place] [address], [place] POC GLUCOSE LABon 07-10-2020 Glucose [Mass/Vol] 207 mg/dL High 70-100 The [facility] Comment on above: Performed By: #### 8 5499 #### [facility] [address] [place] [address], [place] Glucose [Mass/Vol] 119 mg/dL High 70-100 [facility] Comment on above: Performed By: #### 8 5499 #### [facility] [address] [place] [address], [place] Glucose [Mass/Vol] 282 mg/dL High 70-100 [facility] Comment on above: Performed By: #### 8 5499 #### [facility] [address] [place] [address], [place] Glucose [Mass/Vol] 212 mg/dL High 70-100 [facility] Comment on above: Performed By: #### 8 5499 #### [facility] [address] [place] [address], [place] POC GLUCOSE LABon 07-09-2020 Glucose [Mass/Vol] 134 mg/dL High 70-100 [facility] Comment on above: Performed By: #### 8 5499 ####[facility] [place] [address], [place] Glucose [Mass/Vol] 113 mg/dL High 70-100 [facility] Comment on above: Performed By: #### 8 5499 ####[facility] [place] [address], [place] Glucose [Mass/Vol] 158 mg/dL High 70-100 [facility] Comment on above: Performed By: #### 8 5499 ####[facility] [place] [address], [place] Glucose [Mass/Vol] 146 mg/dL High 70-100 [facility] Comment on above: Performed By: #### 3 1792 #### [facility] [address] [place] [address], [place] BASIC METABOLIC PANELon 11-0 Calcium [Mass/Vol] 9.4 mg/dL Normal 8.6-10.3 [facility] Comment on above: Order Comment: No: D o not add to previous draw Performed By: #### 0 0071, 88197 #### [facility] [address] [place] [address], [place] Chloride [Moles/Vol] 102 mmol/L Normal 98-107 [facility] Comment on above: Order Comment: No: D o not add to previous draw Performed By: #### 0 0071, 81530 #### [facility] [address] [place] [address], [place] CO2 [Moles/Vol] 28 mmol/L Normal 21-31 [facility] Comment on above: Order Comment: No: D o not add to previous draw Performed By: #### 0 0071, 25375 #### [facility] [address] [place] [address], [facility] Creatinine [Mass/Vol] 0.73 mg/dL Normal 0.60-1.20 [facility] Comment on above: Order Comment: No: D o not add to previous draw Performed By: #### 0 0071, 38775 #### [facility] [address] [place] [address], [place] GFR/1.73 sq M predicted among blacks MDRD (S/P/Bld) [Vol rate/Area] mL/min/{1.73_m2} Normal >60 [facility] Comment on above: Order Comment: No: D o not add to previous draw Performed By: #### 0 0071, 56902 #### [facility] [address] [place] [address], [place] GFR/1.73 sq M predicted among non-blacks MDRD (S/P/Bld) [Vol rate/Area] mL/min/{1.73_m2} Normal >60 [facility] Comment on above: Order Comment: No: D o not add to previous draw Performed By: #### 0 0071, 55962 #### [facility] [address] [place] [address], [place] Glucose [Mass/Vol] 162 mg/dL High 70-[address] [facility] Comment on above: Order Comment: No: D o not add to previous draw Performed By: #### 0 0071, 01399 #### [facility] [address] [place] [address], [facility] Potassium [Moles/Vol] 3.8 mmol/L Normal 3.5-5.1 [facility] Comment on above: Order Comment: No: D o not add to previous draw Performed By: #### 0 0071, 57319 #### [facility] [address] [place] [address], [facility] Sodium [Moles/Vol] 138 mmol/L Normal 136-145 [facility] Comment on above: Order Comment: No: D o not add to previous draw Performed By: #### 0 0071, 91489 #### [facility] [address] [address], [facility] Urea nitrogen [Mass/Vol] 15 mg/dL Normal 7-25 [facility] Comment on above: Order Comment: No: D o not add to previous draw Performed By: #### 0 0071, 71637 #### [facility] [address] [place] [address], [facility] CBC W/DIFFon 07-08-2020 ABS BASOPHILS 0.1 10*3/uL Normal 0.0-0.2 The [facility] Comment on above: Order Comment: No: D o not add to previous draw Performed By: #### 8 5499 #### [facility] [address] [place] [address], [facility] ABS IMM GRANS 0.0 10*3/uL Normal 0.0-0.2 The [facility] Comment on above: Order Comment: No: D o not add to previous draw Performed By: #### 8 5499 #### [facility] [address] [place] [address], [facility] ABS NEUTROPHILS 3.5 10*3/uL Normal 1.6-7.6 The [facility] Comment on above: Order Comment: No: D o not add to previous draw Performed By: #### 8 5499 #### [facility] [address] [place] [address], [facility] Basophils/100 WBC (Bld) 0.9 % Normal 0.0-1.0 [facility] Comment on above: Order Comment: No: D o not add to previous draw Performed By: #### 8 5499 #### [facility] [address] [place] [address], [place] Eosinophils (Bld) [#/Vol] 0.3 10*3/uL Normal 0.0-0.5 [facility] Comment on above: Order Comment: No: D o not add to previous draw Performed By: #### 8 5499 #### [facility] [address] [place] [address], [facility] Eosinophils/100 WBC (Bld) 3.9 % Normal 0.0-6.0 [facility] Comment on above: Order Comment: No: D o not add to previous draw Performed By: #### 8 5499 #### [facility] [address] [place] [address], [facility] Erythrocyte distribution width (RBC) [Ratio] 15.1 % High 11.5-15.0 [facility] Comment on above: Order Comment: No: D o not add to previous draw Performed By: #### 8 5499 #### [facility] [address] [place] [address], [facility] Hematocrit (Bld) [Volume fraction] 41.0 % Normal 36.0-45.0 [facility] Comment on above: Order Comment: No: D o not add to previous draw Performed By: #### 8 5499 #### [facility] [address] [place] [address], [facility] Hemoglobin (Bld) [Mass/Vol] 13.0 g/dL Normal 12.0-15.0 [facility] Comment on above: Order Comment: No: D o not add to previous draw Performed By: #### 8 5499 #### [facility] [address] [place] [address], [facility] IMMATURE GRANS 0.5 % Normal 0.0-1.0 [facility] Comment on above: Order Comment: No: D o not add to previous draw Performed By: #### 8 5499 #### [facility] [address] [address], [facility] Lymphocytes (Bld) [#/Vol] 1.8 10*3/uL Normal 1.2-4.0 [facility] Comment on above: Order Comment: No: D o not add to previous draw Performed By: #### 8 5499 #### [facility] [address] [place] [address], [facility] Lymphocytes/100 WBC (Bld) 28.2 % Normal 20.0-45.0 [facility] Comment on above: Order Comment: No: D o not add to previous draw Performed By: #### 8 5499 #### [facility] [address] [address], [facility] MCH (RBC) [Entitic mass] 28.6 pg Normal 27.0-33.0 [facility] Comment on above: Order Comment: No: D o not add to previous draw Performed By: #### 8 5499 #### [facility] [address] [facility] [place] [address], [facility] MCHC (RBC) [Mass/Vol] 31.7 g/dL Low 32.0-35.0 [facility] Comment on above: Order Comment: No: D o not add to previous draw Performed By: #### 8 5499 #### [facility] [address] [facility] [place] [address], [facility] MCV (RBC) [Entitic vol] 90.3 fL Normal 82.0-98.0 [facility] Comment on above: Order Comment: No: D o not add to previous draw Performed By: #### 8 5499 #### [facility] [address] [place] [address], [facility] Monocytes (Bld) [#/Vol] 0.7 10*3/uL Normal 0.1-1.0 [facility] Comment on above: Order Comment: No: D o not add to previous draw Performed By: #### 8 5499 #### [facility] [address] [place] [address], [facility] MONOS 11.1 % Normal 5.0-12.0 [facility] Comment on above: Order Comment: No: D o not add to previous draw Performed By: #### 8 5499 #### [facility] [address] [facility] [place] [address], [facility] Neutrophils/100 WBC (Bld) 55.4 % Normal 40.0-72.0 [facility] Comment on above: Order Comment: No: D o not add to previous draw Performed By: #### 8 5499 #### [facility] [address] [place] [address], [facility] Nucleated RBC/100 WBC (Bld) [Ratio] 0 % Normal 0-0 [facility] Comment on above: Order Comment: No: D o not add to previous draw Performed By: #### 8 [id number] #### [facility] [address] [facility] [place] [address], [facility] PLAT CNT 230 10*3/uL Normal 150-400 The [facility] Comment on above: Order Comment: No: D o not add to previous draw Performed By: #### 8 [id number] #### [facility] [address] [place] [id number], [facility] RBC (Bld) [#/Vol] 4.54 10*6/uL Normal 3.80-5.00 The [facility] Comment on above: Order Comment: No: D o not add to previous draw Performed By: #### 8 [id number] #### [facility] [address] [place] [address], [place] WBC (Bld) [#/Vol] 6.38 10*3/uL Normal 4.00-10.60 [facility] Comment on above: Order Comment: No: D o not add to previous draw Performed By: #### 8 [id number] #### [facility] [address] [place] [address], [place] POC GLUCOSE LABon 07-08-2020 Glucose [Mass/Vol] 164 mg/dL High 70-100 [facility] Comment on above: Performed By: #### 8 5499 #### [facility] [address] [place] [address], [place] Glucose [Mass/Vol] 137 mg/dL High 70-100 [facility] Comment on above: Performed By: #### 8 5499 ####[facility] [place] [address], [place] Glucose [Mass/Vol] 247 mg/dL High 70-100 [facility] Comment on above: Performed By: #### 8 5499 ####[facility] [place] [address], [place] Glucose [Mass/Vol] 154 mg/dL High 70-100 [facility] Comment on above: Performed By: #### 8 [id number] ####[facility] [place] [address], [place] Glucose [Mass/Vol] 158 mg/dL High 70-100 [facility] Comment on above: Performed By: #### 8 [id number] #### [facility] [address] [place] [place] [address], [place] POC GLUCOSE LABon 07-07-2020 Glucose [Mass/Vol] 144 mg/dL High 70-100 [facility] Comment on above: Performed By: #### 3 1792 #### [facility] [address] [place] [address], [place] Glucose [Mass/Vol] 184 mg/dL High 70-100 [facility] Comment on above: Performed By: #### 8 [id number] ####[facility] [place] [address], [place] Glucose [Mass/Vol] 171 mg/dL High 70-100 [facility] Comment on above: Performed By: #### 8 [id number] ####[facility] [place] [address], [place] Glucose [Mass/Vol] 98 mg/dL Normal 70-100 [facility] Comment on above: Performed By: #### 8 [id number] #### [facility] [address] [place] [address], [place] POC GLUCOSE LABon 07-06-2020 Glucose [Mass/Vol] 220 mg/dL High 70-100 [facility] Comment on above: Performed By: #### 8 [id number] ####[facility] [place] [address], [place] Glucose [Mass/Vol] 215 mg/dL High 70-100 [facility] Comment on above: Performed By: #### 8 [id number] ####[facility] [place] [address], [place] Glucose [Mass/Vol] 288 mg/dL High 70-100 [facility] Comment on above: Performed By: #### 3 1792 #### [facility] [address] [place] [address], [place] POC GLUCOSE LABon 07-05-2020 Glucose [Mass/Vol] 111 mg/dL High 70-100 [facility] Comment on above: Performed By: #### 8 [id number] #### [facility] [address] [place] [address], [place] Glucose [Mass/Vol] 144 mg/dL High 70-100 [facility] Comment on above: Performed By: #### 8 [id number] #### [facility] [address] [place] [address], [place] Glucose [Mass/Vol] 151 mg/dL High 70-100 [facility] Comment on above: Performed By: #### 8 [id number] ####[facility] [place] [address], [place] Glucose [Mass/Vol] 157 mg/dL High 70-100 [facility] Comment on above: Performed By: #### 8 [id number] ####[facility] [place] [address], [place] Glucose [Mass/Vol] 154 mg/dL High 70-100 [facility] Comment on above: Performed By: #### 8 [id number] ####[facility] [place] [address], [place] BASIC METABOLIC PANELon 10-3 0-2020 Calcium [Mass/Vol] 9.2 mg/dL Normal 8.6-10.3 [facility] Comment on above: Order Comment: No: D o not add to previous draw Performed By: #### 0 0071, 94548 #### [facility] [address] [place] [address], [place] Chloride [Moles/Vol] 101 mmol/L Normal 98-107 [facility] Comment on above: Order Comment: No: D o not add to previous draw Performed By: #### 0 0071, 22555 #### [facility] [address] [place] [address], [place] CO2 [Moles/Vol] 26 mmol/L Normal 21-31 The [facility] Comment on above: Order Comment: No: D o not add to previous draw Performed By: #### 0 0071, 01664 #### [facility] [address] [place] [address], [place] Creatinine [Mass/Vol] 0.75 mg/dL Normal 0.60-1.20 [facility] Comment on above: Order Comment: No: D o not add to previous draw Performed By: #### 0 0071, 92918 #### [facility] [address] [place] [address], [place] GFR/1.73 sq M predicted among blacks MDRD (S/P/Bld) [Vol rate/Area] mL/min/{1.73_m2} Normal >60 [facility] Comment on above: Order Comment: No: D o not add to previous draw Performed By: #### 0 0071, 99304 #### [facility] [address] [place] [address], [place] GFR/1.73 sq M predicted among non-blacks MDRD (S/P/Bld) [Vol rate/Area] mL/min/{1.73_m2} Normal >60 [facility] Comment on above: Order Comment: No: D o not add to previous draw Performed By: #### 0 0071, 58391 #### [facility] [address] [place] [address], [place] Glucose [Mass/Vol] 343 mg/dL High 70-100 [facility] Comment on above: Order Comment: No: D o not add to previous draw Performed By: #### 0 0071, 85619 #### [facility] [address] [place] [address], [place] Potassium [Moles/Vol] 3.6 mmol/L Normal 3.5-5.1 [facility] Comment on above: Order Comment: No: D o not add to previous draw Performed By: #### 0 0071, 22571 #### [facility] [address] [place] [address], [place] Sodium [Moles/Vol] 137 mmol/L Normal 136-145 [facility] Comment on above: Order Comment: No: D o not add to previous draw Performed By: #### 0 0071, 11947 #### [facility] [address] [facility] [place] [address], [facility] Urea nitrogen [Mass/Vol] 15 mg/dL Normal 7-25 [facility] Comment on above: Order Comment: No: D o not add to previous draw Performed By: #### 0 0071, 70817 #### [facility] [address] [facility] [place] [address], [facility] CBC W/DIFFon 07-04-2020 ABS BASOPHILS 0.0 10*3/uL Normal 0.0-0.2 The [facility] Comment on above: Order Comment: No: D o not add to previous draw Performed By: #### 8 [id number] #### [facility] [address] [place] [address], [facility] ABS IMM GRANS 0.0 10*3/uL Normal 0.0-0.2 The [facility] Comment on above: Order Comment: No: D o not add to previous draw Performed By: #### 8 [id number] #### [facility] [address] [facility] [place] [address], [facility] ABS NEUTROPHILS 4.0 10*3/uL Normal 1.6-7.6 The [facility] Comment on above: Order Comment: No: D o not add to previous draw Performed By: #### 8 [id number] #### [facility] [address] [facility] [place] [address], [facility] Basophils/100 WBC (Bld) 0.7 % Normal 0.0-1.0 [facility] Comment on above: Order Comment: No: D o not add to previous draw Performed By: #### 8 [id number] #### [facility] [address] [place] [address], [facility] Eosinophils (Bld) [#/Vol] 0.3 10*3/uL Normal 0.0-0.5 [facility] Comment on above: Order Comment: No: D o not add to previous draw Performed By: #### 8 [id number] #### [facility] [address] [place] [address], [facility] Eosinophils/100 WBC (Bld) 4.7 % Normal 0.0-6.0 [facility] Comment on above: Order Comment: No: D o not add to previous draw Performed By: #### 8 [id number] #### [facility] [address] [place] [address], [facility] Erythrocyte distribution width (RBC) [Ratio] 15.0 % Normal 11.5-15.0 [facility] Comment on above: Order Comment: No: D o not add to previous draw Performed By: #### 8 [id number] #### [facility] [address] [place] [address], [facility] Hematocrit (Bld) [Volume fraction] 38.0 % Normal 36.0-45.0 [facility] Comment on above: Order Comment: No: D o not add to previous draw Performed By: #### 8 [id number] #### [facility] [address] [place] [address], [facility] Hemoglobin (Bld) [Mass/Vol] 12.4 g/dL Normal 12.0-15.0 [facility] Comment on above: Order Comment: No: D o not add to previous draw Performed By: #### 8 [id number] #### [facility] [address] [place] [address], [place] IMMATURE GRANS 0.3 % Normal 0.0-1.0 The [facility] Comment on above: Order Comment: No: D o not add to previous draw Performed By: #### 8 [id number] #### [facility] [address] [place] [address], [place] Lymphocytes (Bld) [#/Vol] 1.1 10*3/uL Low 1.2-4.0 [facility] Comment on above: Order Comment: No: D o not add to previous draw Performed By: #### 8 [id number] #### [facility] [address] [place] [address], [facility] Lymphocytes/100 WBC (Bld) 18.1 % Low 20.0-45.0 [facility] Comment on above: Order Comment: No: D o not add to previous draw Performed By: #### 8 [id number] #### [facility] [address] [facility] [place] [id number], [facility] MCH (RBC) [Entitic mass] 29.1 pg Normal 27.0-33.0 [facility] Comment on above: Order Comment: No: D o not add to previous draw Performed By: #### 8 [id number] #### [facility] [address] [place] [address], [facility] MCHC (RBC) [Mass/Vol] 32.6 g/dL Normal 32.0-35.0 [facility] Comment on above: Order Comment: No: D o not add to previous draw Performed By: #### 8 [id number] #### [facility] [address] [facility] [place] [address], [facility] MCV (RBC) [Entitic vol] 89.2 fL Normal 82.0-98.0 [facility] Comment on above: Order Comment: No: D o not add to previous draw Performed By: #### 8 [id number] #### [facility] [address] [place] [address], [facility] Monocytes (Bld) [#/Vol] 0.6 10*3/uL Normal 0.1-1.0 [facility] Comment on above: Order Comment: No: D o not add to previous draw Performed By: #### 8 [id number] #### [facility] [address] [facility] [place] [id number], [facility] MONOS 9.6 % Normal 5.0-12.0 [facility] Comment on above: Order Comment: No: D o not add to previous draw Performed By: #### 8 [id number] #### [facility] [address] [place] [address], [facility] Neutrophils/100 WBC (Bld) 66.6 % Normal 40.0-72.0 [facility] Comment on above: Order Comment: No: D o not add to previous draw Performed By: #### 8 [id number] #### [facility] [address] [place] [address], [facility] Nucleated RBC/100 WBC (Bld) [Ratio] 0 % Normal 0-0 [facility] Comment on above: Order Comment: No: D o not add to previous draw Performed By: #### 8 [id number] #### [facility] [address] [place] [address], [facility] PLAT CNT 186 10*3/uL Normal 150-400 The [facility] Comment on above: Order Comment: No: D o not add to previous draw Performed By: #### 8 [id number] #### [facility] [address] [place] [address], [facility] RBC (Bld) [#/Vol] 4.26 10*6/uL Normal 3.80-5.00 The [facility] Comment on above: Order Comment: No: D o not add to previous draw Performed By: #### 8 [id number] #### [facility] [address] [place] [address], [place] WBC (Bld) [#/Vol] 5.96 10*3/uL Normal 4.00-10.60 The [facility] Comment on above: Order Comment: No: D o not add to previous draw Performed By: #### 8 [id number] #### [facility] [address] [place] [address], [place] MAGNESIUM BLOODon 07-04-2020 Magnesium [Mass/Vol] 1.7 mg/dL Low 1.9-2.7 [facility] Comment on above: Order Comment: No: D o not add to previous draw Performed By: #### 0 0071, 01094 #### [facility] [address] [place] [address], [place] POC GLUCOSE LABon 07-04-2020 Glucose [Mass/Vol] 143 mg/dL High 70-100 [facility] Comment on above: Performed By: #### 8 [id number] #### [facility] [address] [place] [address], [place] Glucose [Mass/Vol] 226 mg/dL High 70-100 [facility] Comment on above: Performed By: #### 3 1792 #### [facility] [address] [place] [address], [place] Glucose [Mass/Vol] 340 mg/dL High 70-100 [facility] Comment on above: Performed By: #### 8 [id number] #### [facility] [address] [place] [address], [place] BASIC METABOLIC PANELon 06-06 Calcium [Mass/Vol] 9.1 mg/dL Normal 8.6-10.3 [facility] Comment on above: Order Comment: No: D o not add to previous draw Performed By: #### 0 0071, 13879 #### [facility] [address] [place] [address], [place] Chloride [Moles/Vol] 104 mmol/L Normal 98-107 [facility] Comment on above: Order Comment: No: D o not add to previous draw Performed By: #### 0 0071, 99515 #### [facility] [address] [place] [address], [place] CO2 [Moles/Vol] 27 mmol/L Normal 21-31 The [facility] Comment on above: Order Comment: No: D o not add to previous draw Performed By: #### 0 0071, 95668 #### [facility] [address] [place] [address], [place] Creatinine [Mass/Vol] 0.69 mg/dL Normal 0.60-1.20 [facility] Comment on above: Order Comment: No: D o not add to previous draw Performed By: #### 0 0071, 02320 #### [facility] [address] [place] [address], [place] GFR/1.73 sq M predicted among blacks MDRD (S/P/Bld) [Vol rate/Area] mL/min/{1.73_m2} Normal >60 [facility] Comment on above: Order Comment: No: D o not add to previous draw Performed By: #### 0 0071, 74091 #### [facility] [address] [place] [address], [place] GFR/1.73 sq M predicted among non-blacks MDRD (S/P/Bld) [Vol rate/Area] mL/min/{1.73_m2} Normal >60 [facility] Comment on above: Order Comment: No: D o not add to previous draw Performed By: #### 0 0071, 97614 #### [facility] [address] [place] [address], [place] Glucose [Mass/Vol] 192 mg/dL High 70-100 [facility] Comment on above: Order Comment: No: D o not add to previous draw Performed By: #### 0 0071, 62054 #### [facility] [address] [place] [address], [place] Potassium [Moles/Vol] 3.2 mmol/L Low 3.5-5.1 [facility] Comment on above: Order Comment: No: D o not add to previous draw Performed By: #### 0 0071, 37804 #### [facility] [address] [place] [address], [place] Sodium [Moles/Vol] 139 mmol/L Normal 136-145 [facility] Comment on above: Order Comment: No: D o not add to previous draw Performed By: #### 0 0071, 50783 #### [facility] [address] [place] [address], [facility] Urea nitrogen [Mass/Vol] 13 mg/dL Normal 7-25 [facility] Comment on above: Order Comment: No: D o not add to previous draw Performed By: #### 0 0071, 46010 #### [facility] [address] [place] [address], [facility] CBC W/DIFFon 07-03-2020 ABS BASOPHILS 0.1 10*3/uL Normal 0.0-0.2 The [facility] Comment on above: Order Comment: No: D o not add to previous draw Performed By: #### 8 [id number] #### [facility] [address] [facility] [place] [address], [facility] ABS IMM GRANS 0.0 10*3/uL Normal 0.0-0.2 The [facility] Comment on above: Order Comment: No: D o not add to previous draw Performed By: #### 8 [id number] #### [facility] [address] [facility] [place] [address], [facility] ABS NEUTROPHILS 3.7 10*3/uL Normal 1.6-7.6 The [facility] Comment on above: Order Comment: No: D o not add to previous draw Performed By: #### 8 [id number] #### [facility] [address] [place] [address], [facility] Basophils/100 WBC (Bld) 0.8 % Normal 0.0-1.0 [facility] Comment on above: Order Comment: No: D o not add to previous draw Performed By: #### 8 [id number] #### [facility] [address] [place] [address], [place] Eosinophils (Bld) [#/Vol] 0.3 10*3/uL Normal 0.0-0.5 [facility] Comment on above: Order Comment: No: D o not add to previous draw Performed By: #### 8 [id number] #### [facility] [address] [place] [address], [facility] Eosinophils/100 WBC (Bld) 4.4 % Normal 0.0-6.0 [facility] Comment on above: Order Comment: No: D o not add to previous draw Performed By: #### 8 [id number] #### [facility] [address] [place] [address], [facility] Erythrocyte distribution width (RBC) [Ratio] 14.7 % Normal 11.5-15.0 [facility] Comment on above: Order Comment: No: D o not add to previous draw Performed By: #### 8 [id number] #### [facility] [address] Hematocrit (Bld) [Volume fraction] 38.4 % Normal 36.0-45.0 [facility] Comment on above: Order Comment: No: D o not add to previous draw Performed By: #### 8 [id number] #### [facility] [address] [place] [address], [facility] Hemoglobin (Bld) [Mass/Vol] 12.2 g/dL Normal 12.0-15.0 [facility] Comment on above: Order Comment: No: D o not add to previous draw Performed By: #### 8 [id number] #### [facility] [address] [place] [id number], [facility] IMMATURE GRANS 0.5 % Normal 0.0-1.0 The [facility] Comment on above: Order Comment: No: D o not add to previous draw Performed By: #### 8 [id number] #### [facility] [address] [place] [address], [facility] Lymphocytes (Bld) [#/Vol] 1.3 10*3/uL Normal 1.2-4.0 [facility] Comment on above: Order Comment: No: D o not add to previous draw Performed By: #### 8 [id number] #### [facility] [address] [place] [address], [facility] Lymphocytes/100 WBC (Bld) 22.0 % Normal 20.0-45.0 [facility] Comment on above: Order Comment: No: D o not add to previous draw Performed By: #### 8 [id number] #### [facility] [address] [place] [address], [facility] MCH (RBC) [Entitic mass] 28.6 pg Normal 27.0-33.0 [facility] Comment on above: Order Comment: No: D o not add to previous draw Performed By: #### 8 [id number] #### [facility] [address] [place] [address], [facility] MCHC (RBC) [Mass/Vol] 31.8 g/dL Low 32.0-35.0 [facility] Comment on above: Order Comment: No: D o not add to previous draw Performed By: #### 8 [id number] #### [facility] [address] [place] [address], [facility] MCV (RBC) [Entitic vol] 90.1 fL Normal 82.0-98.0 [facility] Comment on above: Order Comment: No: D o not add to previous draw Performed By: #### 8 [id number] #### [facility] [address] [place] [address], [facility] Monocytes (Bld) [#/Vol] 0.7 10*3/uL Normal 0.1-1.0 [facility] Comment on above: Order Comment: No: D o not add to previous draw Performed By: #### 8 [id number] #### [facility] [address] [place] [address], [place] MONOS 11.1 % Normal 5.0-12.0 [facility] Comment on above: Order Comment: No: D o not add to previous draw Performed By: #### 8 [id number] #### [facility] [address] [place] [address], [facility] Neutrophils/100 WBC (Bld) 61.2 % Normal 40.0-72.0 [facility] Comment on above: Order Comment: No: D o not add to previous draw Performed By: #### 8 [id number] #### [facility] [address] [place] [address], [facility] Nucleated RBC/100 WBC (Bld) [Ratio] 0 % Normal 0-0 [facility] Comment on above: Order Comment: No: D o not add to previous draw Performed By: #### 8 [id number] #### [facility] [address] [place] [address], [facility] PLAT CNT 193 10*3/uL Normal 150-400 The [facility] Comment on above: Order Comment: No: D o not add to previous draw Performed By: #### 8 [id number] #### [facility] [address] [facility] [place] [address], [facility] RBC (Bld) [#/Vol] 4.26 10*6/uL Normal 3.80-5.00 The [facility] Comment on above: Order Comment: No: D o not add to previous draw Performed By: #### 8 [id number] #### [facility] [address] [place] [id number], [place] WBC (Bld) [#/Vol] 5.96 10*3/uL Normal 4.00-10.60 The [facility] Comment on above: Order Comment: No: D o not add to previous draw Performed By: #### 8 [id number] #### [facility] [address] [place] [id number], [facility] POC GLUCOSE LABon 07-03-2020 Glucose [Mass/Vol] 161 mg/dL High 70-100 [facility] Comment on above: Performed By: #### 8 [id number] #### [facility] [address] [place] [address], [facility] BASIC METABOLIC PANELon 10-2 Calcium [Mass/Vol] 8.5 mg/dL Low 8.6-10.3 [facility] Comment on above: Order Comment: No: D o not add to previous draw Performed By: #### 0 0071, 00269 #### [facility] [address] [place] [address], [facility] Chloride [Moles/Vol] 103 mmol/L Normal 98-107 [facility] Comment on above: Order Comment: No: D o not add to previous draw Performed By: #### 0 0071, 77177 #### [facility] [address] [place] [address], [facility] CO2 [Moles/Vol] 24 mmol/L Normal 21-31 The [facility] Comment on above: Order Comment: No: D o not add to previous draw Performed By: #### 0 0071, 37234 #### [facility] [address] [place] [address], [facility] Creatinine [Mass/Vol] 0.76 mg/dL Normal 0.60-1.20 [facility] Comment on above: Order Comment: No: D o not add to previous draw Performed By: #### 0 0071, 94569 #### [facility] [address] [place] [address], [place] GFR/1.73 sq M predicted among blacks MDRD (S/P/Bld) [Vol rate/Area] mL/min/{1.73_m2} Normal >60 [facility] Comment on above: Order Comment: No: D o not add to previous draw Performed By: #### 0 0071, 19558 #### [facility] [address] [place] [address], [facility] GFR/1.73 sq M predicted among non-blacks MDRD (S/P/Bld) [Vol rate/Area] mL/min/{1.73_m2} Normal >60 [facility] Comment on above: Order Comment: No: D o not add to previous draw Performed By: #### [id number] #### [facility] [address] [place] [address], [facility] Glucose [Mass/Vol] 224 mg/dL High 70-100 [facility] Comment on above: Order Comment: No: D o not add to previous draw Performed By: #### [id number], [id number] #### [facility] [facility] [address] [place] [address], [facility] Potassium [Moles/Vol] 4.0 mmol/L Normal 3.5-5.1 [facility] Comment on above: Order Comment: No: D o not add to previous draw Performed By: #### 0 0071, 58589 #### [facility] [address] [facility] [place] [address], [facility] Sodium [Moles/Vol] 134 mmol/L Low 136-145 [facility] Comment on above: Order Comment: No: D o not add to previous draw Performed By: #### 0 0071, 80131 #### [facility] [address] [place] [address], [facility] Urea nitrogen [Mass/Vol] 16 mg/dL Normal 7-25 [facility] Comment on above: Order Comment: No: D o not add to previous draw Performed By: #### 0 0071, 80165 #### [facility] [address] [place] [address], [facility] CBC W/DIFFon 07-02-2020 ABS BASOPHILS 0.1 10*3/uL Normal 0.0-0.2 The [facility] Comment on above: Order Comment: No: D o not add to previous draw Performed By: #### 0 0071, 12401 #### [facility] [address] [place] [address], [facility] ABS IMM GRANS 0.1 10*3/uL Normal 0.0-0.2 The [facility] Comment on above: Order Comment: No: D o not add to previous draw Performed By: #### 0 0071, 76527 #### [facility] [address] [place] [address], [facility] ABS NEUTROPHILS 6.5 10*3/uL Normal 1.6-7.6 The [facility] Comment on above: Order Comment: No: D o not add to previous draw Performed By: #### 0 0071, 67937 #### [facility] [address] [place] [address], [facility] Basophils/100 WBC (Bld) 0.7 % Normal 0.0-1.0 [facility] Comment on above: Order Comment: No: D o not add to previous draw Performed By: #### 0 0071, 38734 #### [facility] [address] [facility] [place] [address], [facility] Eosinophils (Bld) [#/Vol] 0.2 10*3/uL Normal 0.0-0.5 [facility] Comment on above: Order Comment: No: D o not add to previous draw Performed By: #### 0 0071, 99549 #### [facility] [address] [facility] [place] [address], [facility] Eosinophils/100 WBC (Bld) 2.5 % Normal 0.0-6.0 [facility] Comment on above: Order Comment: No: D o not add to previous draw Performed By: #### 0 0071, 06665 #### [facility] [address] [place] [address], [facility] Erythrocyte distribution width (RBC) [Ratio] 14.9 % Normal 11.5-15.0 [facility] Comment on above: Order Comment: No: D o not add to previous draw Performed By: #### 0 0071, 07209 #### [facility] [address] [facility] [place] [address], [facility] Hematocrit (Bld) [Volume fraction] 37.8 % Normal 36.0-45.0 [facility] Comment on above: Order Comment: No: D o not add to previous draw Performed By: #### 0 0071, 25945 #### [facility] [address] [facility] [place] [address], [facility] Hemoglobin (Bld) [Mass/Vol] 12.0 g/dL Normal 12.0-15.0 [facility] Comment on above: Order Comment: No: D o not add to previous draw Performed By: #### 0 0071, 33177 #### [facility] [address] [facility] [place] [address], [facility] IMMATURE GRANS 0.6 % Normal 0.0-1.0 The [facility] Comment on above: Order Comment: No: D o not add to previous draw Performed By: #### 0 0071, 79901 #### [facility] [address] [place] [address], [facility] Lymphocytes (Bld) [#/Vol] 1.0 10*3/uL Low 1.2-4.0 [facility] Comment on above: Order Comment: No: D o not add to previous draw Performed By: #### 0 0071, 19796 #### [facility] [address] [place] [address], [facility] Lymphocytes/100 WBC (Bld) 11.3 % Low 20.0-45.0 [facility] Comment on above: Order Comment: No: D o not add to previous draw Performed By: #### 0 0071, 83919 #### [facility] [address] [facility] [id number], [facility] MCH (RBC) [Entitic mass] 29.0 pg Normal 27.0-33.0 [facility] Comment on above: Order Comment: No: D o not add to previous draw Performed By: #### 0 0071, 90183 #### [facility] [address] [place] [address], [facility] MCHC (RBC) [Mass/Vol] 31.7 g/dL Low 32.0-35.0 [facility] Comment on above: Order Comment: No: D o not add to previous draw Performed By: #### 0 0071, 36102 #### [facility] [address] [place] [id number], [facility] MCV (RBC) [Entitic vol] 91.3 fL Normal 82.0-98.0 [facility] Comment on above: Order Comment: No: D o not add to previous draw Performed By: #### 0 0071, 22083 #### [facility] [address] [place] [address], [facility] Monocytes (Bld) [#/Vol] 0.9 10*3/uL Normal 0.1-1.0 [facility] Comment on above: Order Comment: No: D o not add to previous draw Performed By: #### 0 0071, 62706 #### [facility] [address] [place] [address], [facility] MONOS 10.3 % Normal 5.0-12.0 [facility] Comment on above: Order Comment: No: D o not add to previous draw Performed By: #### 0 0071, 17340 #### [facility] [address] [place] [address], [facility] Neutrophils/100 WBC (Bld) 74.6 % High 40.0-72.0 [facility] Comment on above: Order Comment: No: D o not add to previous draw Performed By: #### 0 0071, 69343 #### [facility] [address] [place] [id number], [facility] Nucleated RBC/100 WBC (Bld) [Ratio] 0 % Normal 0-0 [facility] Comment on above: Order Comment: No: D o not add to previous draw Performed By: #### 0 0071, 96450 #### [facility] [address] [place] [address], [facility] PLAT CNT 229 10*3/uL Normal 150-400 The [facility] Comment on above: Order Comment: No: D o not add to previous draw Performed By: #### 0 0071, 37828 #### [facility] [address] [place] [address], [facility] RBC (Bld) [#/Vol] 4.14 10*6/uL Normal 3.80-5.00 The [facility] Comment on above: Order Comment: No: D o not add to previous draw Performed By: #### 0 0071, 32425 #### [facility] [address] [place] [address], [facility] WBC (Bld) [#/Vol] 8.65 10*3/uL Normal 4.00-10.60 The [facility] Comment on above: Order Comment: No: D o not add to previous draw Performed By: #### 0 0071, 09357 #### [facility] [address] MAGNESIUM BLOODon 07-02-2020 Magnesium [Mass/Vol] 1.8 mg/dL Low 1.9-2.7 [facility] Comment on above: Order Comment: No: D o not add to previous draw Performed By: #### 0 0071, 61054 #### [facility] [address] [place] [address], [facility] POC GLUCOSE LABon 07-02-2020 Glucose [Mass/Vol] 157 mg/dL High 70-100 [facility] Comment on above: Performed By: #### 8 5499 #### [facility] [address] *MRSA/MSSA CULTUREon 020 *MRSA/MSSA CULTURE Clinical [...] No previously released data found. Normal [facility] Comment on above: Performed By: #### 3 1302 #### [address] LUMBAR SPINE 2 OR 3 [facility] LUMBAR SPINE 2 OR 3 [facility] Department of Radiology [address] [place] [phone] Patient Name: MONICA ACOSTA : 1960 Sex: F Age: Race: White Pt. Location: [id number] Patient Status: I Ordered Date: 07/01/2020 7:00:00 AM Completed Date: 07/01/2020 12:20 PM Requesting Provider: CHILANGO MARTINEZ Attending Provider: CHILANGO MARTINEZ Report Copy To: Signs & Symptoms: L1 VERTEBROPLASTY History: Comments: L1 VERTEBROPLASTY Exam: LUMBAR SPINE 2 OR 3 [facility] LUMBAR SPINE 2 OR 3 VWS 07/01/2020 [...] L1. Approved by:Bogdan Puga07/01/2020 3:41 PM. I, Richrad Clarke,have reviewed the images and reports Electronically signed: Richard Clarke. Transcribed by: [email or web address], User Resident: BOGDAN SOTELO Electronically Signed by: RICHARD CLARKE @ 07/01/2020 08:54 PM I personally read this/these film(s) with this resident Normal [facility] Comment on above: Order Comment: No: D o not add to previous draw Operative Reporton 0 Operative Report MR#: [id number] [facility] Pt. Name: Monica Acosta Room #: [id number] Discharge Date: Birthdate: 1960 OPERATIVE REPORT DATE OF SURGERY: 07/01/2020 SURGEON: Chilango Martinez M.D. LETTERSET PRESS SET UP OPERATOR: Ant Jolley M.D. PREOPERATIVE DIAGNOSIS: L1 vertebral compression fracture secondary to osteoporosis (ICD-10 M80.08XA). ANESTHESIA: General endotracheal. POSITION: Prone position on the Chris table in reverse Trendelenburg position. OPERATION: 1. L1 vertebroplasty (04994). 2. Use of intraoperative fluoroscopy (12478). POSTOPERATIVE DIAGNOSIS: [id number] compression fracture secondary to osteoporosis (ICD-10 M80.08XA). [...] lateral, the cement from [employer] system from [employer] was mixed. Cement was injected under live [...] Martinez M.D. Date Trans: 07/01/2020 12:25 P/ [id number] Normal [facility] POC GLUCOSE LABon 07-01-2020 Glucose [Mass/Vol] 142 mg/dL High 70-100 [facility] Comment on above: Performed By: #### 8 5499 ####[facility] [address] Glucose [Mass/Vol] 156 mg/dL High 70-100 [facility] Comment on above: Performed By: #### 3 1792 #### [facility] [address] [place] [address], [facility] Glucose [Mass/Vol] 187 mg/dL High 70-100 [facility] Comment on above: Performed By: #### 3 1792 #### [facility] [address] *SARS-CoV-2 COVID-19on 06-30 [id number] Not Detected Normal Not Detected The [facility] Comment on above: Order Comment: The A ptima SARS-CoV-2 assay is a nucleic acid amplification test intended for the qualitative detection of RNA from SARS-CoV-2 isolated and purified from nasopharyngeal (RACING SECRETARY AND HANDICAPPER),oropharyngeal (OP), nasal swab, sputum, and bronchoalveolar lavage (BAL) specimens from patients with signs and symptoms of infection who are suspected of COVID-19. Results are for the identification of SARS-CoV-2 RNA. The SARS-CoV-2 RNA is generally detectable during the acute phase of infection. The Aptima SARS-CoV-2 Assay on the [employer] and [employer] system is intended for use by laboratory personnel specifically instructed and trained in the operation of the [employer] system. The Aptima SARS-CoV-2 assay is [...] information. Performed By: #### 3 1792 #### [facility] [address] APTTon 06-30-2020 aPTT Coag (Bld) [Time] 22.4 s Low 25.0-35.0 [facility] Comment on above: Result Comment: ALL [...] PURPOSE. Performed By: #### 8 5499 #### [facility] [address] BASIC METABOLIC PANELon 06-06 Calcium [Mass/Vol] 9.5 mg/dL Normal 8.6-10.[address] [facility] Comment on above: Performed By: #### 8 5499 #### [facility] [address] [facility] [address], [facility] Chloride [Moles/Vol] 95 mmol/L Low 98-107 [facility] Comment on above: Performed By: #### 8 5499 #### [facility] [address] [place] [address], [facility] CO2 [Moles/Vol] 21 mmol/L Normal 21-31 The [facility] Comment on above: Performed By: #### 8 5499 #### [facility] [address] [place] [address], [facility] Creatinine [Mass/Vol] 1.00 mg/dL Normal 0.60-1.20 [facility] Comment on above: Performed By: #### 8 5499 #### [facility] [address] [place] [address], [place] GFR/1.73 sq M predicted among blacks MDRD (S/P/Bld) [Vol rate/Area] mL/min/{1.73_m2} Normal >60 [facility] Comment on above: Performed By: #### 8 5499 #### [facility] [address] [place] [address], [place] GFR/1.73 sq M predicted among non-blacks MDRD (S/P/Bld) [Vol rate/Area] 56 ml/min/1.73sq m Abnormal >60 The [facility] Comment on above: Performed By: #### 8 5499 #### [facility] [address] [place] [address], [place] Glucose [Mass/Vol] 395 mg/dL High 70-100 [facility] Comment on above: Performed By: #### 8 5499 #### [facility] [address] [place] [address], [place] Potassium [Moles/Vol] 4.4 mmol/L Normal 3.5-5.1 [facility] Comment on above: Performed By: #### 8 5499 #### [facility] [address] [place] [address], [place] Sodium [Moles/Vol] 134 mmol/L Low 136-145 [facility] Comment on above: Performed By: #### 8 5499 #### [facility] [address] [place] [address], [place] Urea nitrogen [Mass/Vol] 24 mg/dL Normal 7-25 [facility] Comment on above: Performed By: #### 8 5499 #### [facility] [address] [place] [address], [place] BNP (B-TYPE NATRIURETIC PEPT PADMAJA)on 06-30-2020 Natriuretic peptide B (Bld) [Mass/Vol] 27 pg/mL Normal 0-100 [facility] Comment on above: Order Comment: No: D o not add to previous draw Result Comment: Give n the appropriate clinical setting a BNP result of >100 pg/mL indicates congestive heart failure. Performed By: #### 0 0071, 40578 #### [facility] [address] CBC W/DIFFon 06-30-2020 ABS BASOPHILS 0.1 10*3/uL Normal 0.0-0.2 The [facility] Comment on above: Performed By: #### 8 5499 #### [facility] [address] ABS IMM GRANS 0.1 10*3/uL Normal 0.0-0.2 The [facility] Comment on above: Performed By: #### 8 5499 #### [facility] [address] ABS NEUTROPHILS 10.3 10*3/uL High 1.6-7.6 The [facility] Comment on above: Performed By: #### 8 5499 #### [facility] [address] [place] [address], [facility] Basophils/100 WBC (Bld) 0.7 % Normal 0.0-1.0 [facility] Comment on above: Performed By: #### 8 5499 #### [facility] [address] [place] [address], [facility] Eosinophils (Bld) [#/Vol] 0.2 10*3/uL Normal 0.0-0.5 [facility] Comment on above: Performed By: #### 8 5499 #### [facility] [address] [place] [address], [facility] Eosinophils/100 WBC (Bld) 1.4 % Normal 0.0-6.0 [facility] Comment on above: Performed By: #### 8 5499 #### [facility] [address] [facility] [place] [address] Erythrocyte distribution width (RBC) [Ratio] 14.7 % Normal 11.5-15.0 [facility] Comment on above: Performed By: #### 8 5499 #### [facility] [address] [facility] [place] [address], [facility] Hematocrit (Bld) [Volume fraction] 47.7 % High 36.0-45.0 [facility] Comment on above: Performed By: #### 8 5499 #### [facility] [address] [facility] Hemoglobin (Bld) [Mass/Vol] 15.3 g/dL High 12.0-15.0 [facility] Comment on above: Performed By: #### 8 5499 #### [facility] [address] [place] [address], [facility] IMMATURE GRANS 0.6 % Normal 0.0-1.0 The [facility] Comment on above: Performed By: #### 8 5499 #### [facility] [address] [facility] Lymphocytes (Bld) [#/Vol] 1.4 10*3/uL Normal 1.2-4.0 [facility] Comment on above: Performed By: #### 8 5499 #### [facility] [address] [facility] Lymphocytes/100 WBC (Bld) 11.0 % Low 20.0-45.0 [facility] Comment on above: Performed By: #### 8 5499 #### [facility] [address] [place] [address], [facility] MCH (RBC) [Entitic mass] 28.7 pg Normal 27.0-33.0 [facility] Comment on above: Performed By: #### 8 5499 #### [facility] [address] [place] [address], [facility] MCHC (RBC) [Mass/Vol] 32.1 g/dL Normal 32.0-35.0 [facility] Comment on above: Performed By: #### 8 5499 #### [facility] [address] [place] [address], [facility] MCV (RBC) [Entitic vol] 89.3 fL Normal 82.0-98.0 [facility] Comment on above: Performed By: #### 8 5499 #### [facility] [address] [facility] [place] [address], [facility] Monocytes (Bld) [#/Vol] 1.0 10*3/uL Normal 0.1-1.0 [facility] Comment on above: Performed By: #### 8 5499 #### [facility] [address] [facility] [place] [address], [facility] MONOS 7.4 % Normal 5.0-12.0 [facility] Comment on above: Performed By: #### 8 5499 #### [facility] [address] [facility] [place] [address], [facility] Neutrophils/100 WBC (Bld) 78.9 % High 40.0-72.0 [facility] Comment on above: Performed By: #### 8 5499 #### [facility] [address] [facility] [place] [address], [facility] Nucleated RBC/100 WBC (Bld) [Ratio] 0 % Normal 0-0 [facility] Comment on above: Performed By: #### 8 5499 #### [facility] [address] [facility] [place] [address], [facility] PLAT CNT 315 10*3/uL Normal 150-400 The [facility] Comment on above: Performed By: #### 8 5499 #### [facility] [address] [place] [address], [facility] RBC (Bld) [#/Vol] 5.34 10*6/uL High 3.80-5.00 [facility] Comment on above: Performed By: #### 8 5499 #### [facility] [address] [facility] [address], [facility] WBC (Bld) [#/Vol] 13.03 10*3/uL High 4.00-10.60 [facility] Comment on above: Performed By: #### 8 5499 #### [facility] [address] [facility] [address], [facility] CT BRAIN WO CONTRASTon 06-30 CT BRAIN WO CONTRAST [facility] Department of Radiology [address] [place], [place] [phone] Patient Name: MONICA ACOSTA : 1960 Sex: F Age: Race: White Pt. Location: [facility] Patient Status: E Ordered Date: 06/30/2020 [...] achievable Electronically signed: Enio Miles. Transcribed by: [email or web address], User Resident: Electronically Signed by: ENIO MILES @ 06/30/2020 07:52 AM Normal [facility] Comment on above: Order Comment: Bleed CT CERVICAL SPINE WITHOUT CO NTRASTon 06-30-2020 CT CERVICAL SPINE WITHOUT CONTRAST [facility] Department of Radiology [address] [place] [phone] Patient Name: MONICA ACOSTA : 1960 Sex: F Age: Race: White Pt. Location: [facility] Patient Status: E Ordered Date: 06/30/2020 [...] malalignment. Electronically signed: Enio Miles. Transcribed by: [email or web address], User Resident: Electronically Signed by: ENIO MILES @ 06/30/2020 07:54 AM Kevin [facility] Comment on above: Order Comment: No: D o not add to previous draw CT LUMBAR SPINE WO CONTRASTo n 06-30-2020 CT LUMBAR SPINE WO CONTRAST [facility] Department of Radiology [address] [place] [phone] Patient Name: MONICA ACOSTA : 1960 Sex: F Age: Race: White Pt. Location: [facility] Patient Status: E Ordered Date: 06/30/2020 [...] injury. Electronically signed: Enio Miles. Transcribed by: [email or web address], User Resident: Electronically Signed by: ENIO MILES @ 06/30/2020 07:59 AM Normal [facility] Comment on above: Order Comment: No: D o not add to previous draw CTA CHESTon 06-30-2020 CTA CHEST [facility] Department of Radiology [address] [place] [phone] Patient Name: MONICA ACOSTA : 1960 Sex: F Age: Race: White Pt. Location: [id number] Patient Status: I Ordered Date: 06/30/2020 3:25:00 [...] atelectasis. Electronically signed: Richard Clarke. Transcribed by: [email or web address], User Resident: Electronically Signed by: RICHARD CLARKE @ 06/30/2020 08:13 PM Normal [facility] Comment on above: Order Comment: No: D o not add to previous draw D DIMER TESTon 06-30-2020 D-DIMER TEST 1.78 mcg/mL FEU High 0.27-0.49 The [facility] Comment on above: Order Comment: No: D o not add to previous draw Result Comment: D-Di pema values of less than 0.50 ug/ml (FEU) are considered to be a negative predictor of thrombosis. However, the D-Dimer result should be used in conjunction with pretest probability and should not be used alone to diagnose a thrombotic event. Performed By: #### 0 0071, 32353 #### [facility] [address] [place] [address], [facility] HEMOGLOBIN A1Con 06-30-2020 HbA1c (Bld) [Mass fraction] 200 mmol/L Normal [facility] Comment on above: Order Comment: No: D o not add to previous draw Performed By: #### 0 0071, 44809 #### [facility] [address] [place] [address], [facility] HbA1c (Bld) [Mass fraction] 8.6 % High 4.0-6.0 [facility] Comment on above: Order Comment: No: D o not add to previous draw Performed By: #### 0 0071, 48678 #### [facility] [address] [place] [address], [facility] LACTATE BLOODon 06-30-2020 Lactate [Moles/Vol] 1.5 mmol/L Normal 0.5-2.2 The [facility] Comment on above: Order Comment: No: D o not add to previous draw Performed By: #### 0 0071, 72352 #### [facility] [address] [place] [address], [facility] MAGNESIUM BLOODon 06-30-2020 Magnesium [Mass/Vol] 1.9 mg/dL Normal 1.9-2.7 [facility] Comment on above: Order Comment: No: D o not add to previous draw Performed By: #### 0 0071, 60568 #### [facility] [address] [facility] [place] [address], [facility] MRI LUMBAR SPINE W WO CONTRA STon 06-30-2020 MRI LUMBAR SPINE W WO CONTRAST [facility] Department of Radiology [address] [place] [phone] Patient Name: MONICA ACOSTA : 1960 Sex: F Age: Race: White Pt. Location: [facility] Patient Status: I Ordered Date: 06/30/2020 [...] changes. Electronically signed: Dom Carbajal. Transcribed by: [email or web address], User Resident: Electronically Signed by: DOM CARBAJAL @ 06/30/2020 11:09 AM Normal [facility] Comment on above: Order Comment: No: D o not add to previous draw POC GLUCOSE EDon 06-30-2020 Glucose [Mass/Vol] 388 mg/dL High 70-100 [facility] Comment on above: Performed By: #### [id number] #### [facility] [address] [place] [address], [place] POC GLUCOSE LABon 06-30-2020 Glucose [Mass/Vol] 430 mg/dL High 70-100 [facility] Comment on above: Performed By: #### [id number] ####[facility] [place] [address], [place] Glucose [Mass/Vol] 308 mg/dL High 70-100 [facility] Comment on above: Performed By: #### [id number] #### [facility] [address] [place] [address], [place] Glucose [Mass/Vol] 348 mg/dL High 70-100 [facility] Comment on above: Performed By: #### [id number] #### [facility] [address] [place] [address], [facility] PROCALCITONINon 06-30-2020 PROCALCITONIN 0.11 ng/mL High 0.00-0.10 [facility] Comment on above: Order Comment: No: [...] initial PCT<0.5ng/mL Performed By: #### 0 [id number], [id number] #### [facility] [address] [place] [address], [facility] PROTHROMBIN TIMEon 06-30-202 0 INR Coag (PPP) [Relative time] 0.89 {INR} Low 0.91-1.16 [facility] Comment on above: Result Comment: ACCC [...] 1995;[id number]. Performed By: #### [id number] #### [facility] [address] [place] [address], [facility] PT Coag (PPP) [Time] 12.0 s Low 12.3-14.8 [facility] Comment on above: Result Comment: ALL RESULTS MUST BE INTERPRETED WITH RESPECT TO BLOOD DRAWING ARTIFACT OR DILUTION ERROR OF ANTICOAGULANT AT THE TIME OF SAMPLING. Performed By: #### [id number] #### [facility] [address] [facility] TPO ANTIBODY [address]ia 020 TPO ANTIBODY 0.8 IU/mL Normal 0.0-9.0 [facility] Comment on above: Result Comment: Perf ormed By: [facility] [address] [place] [address] Buckle Sorter: Emilia Arrieta MD TROPONIN-Ion 06-30-2020 Troponin I.cardiac [Mass/Vol] 0.01 ng/mL Normal 0.00-0.04 [facility] Comment on above: Order Comment: No: D o not add to previous draw Result Comment: REFE RENCE RANGES: 0.00 - 0.04 ng/ml NORMAL 0.05 - 0.50 ng/ml INDETERMINATE > 0.50 ng/ml CONSISTENT WITH AN M.I. Performed By: #### 0 [id number], [id number] #### [address] Performed By: #### [id number] #### [facility] [address] [place], [place] [id number] [place] [address] TYPE AND SCREENon 06-30-2020 ABO INTERPRETATION A Normal [facility] Comment on above: Performed By: #### [id number] #### [facility] [address] [facility] [place] [address], [facility] RH INTERPRETATION Positive Normal [facility] Comment on above: Performed By: #### [id number] #### [address] [address], [facility] LUMBAR SPINE 2 OR 3 [facility] LUMBAR SPINE 2 OR 3 [facility] Department of Radiology [address] [place] [address] [id number] Patient Name: MONICA ACOSTA : 1960 Sex: [...] chronic change. Approved by:Bogdan Puga06/26/2020 9:13 AM. IJamie,have reviewed the images and reports Electronically signed: Jamie Elizondo. Transcribed by: [email or web address], User Resident: BOGDAN MCNAIRP Electronically Signed by: JAMIE ELIZONDO @ 06/26/2020 11:06 AM I personally read this/these film(s) with this resident Normal [facility] Comment on above: Order Comment: No: D o not add to previous draw Vital Signs Date Time Vital Sign Value Performing Clinician Facility 11-19-2024 13:38-0400 Body height 170.2 cm Collin Saba MD Work Phone: [facility] 11-19-2024 13:38-0400 Body mass index (BMI) [Ratio] 29.12 kg/m2 Collin Saba MD Work Phone: [facility] 11-19-2024 13:38-0400 Body weight 84.37 kg Collin Saba MD Work Phone: [facility] 11-19-2024 13:38-0400 Diastolic blood pressure 64 mm[Hg] Collin Saba MD Work Phone: [facility] 11-19-2024 13:38-0400 Respiratory rate 18 /min Collin Saba MD Work Phone: [facility] 11-19-2024 13:38-0400 Systolic blood pressure 114 mm[Hg] Collin Saba MD Work Phone: [facility] 09-19-2024 11:19-0500 Body height 170.2 cm Rudolph Hurt MD Work Phone: [facility] 09-19-2024 11:19-0500 Body mass index (BMI) [Ratio] 29.76 kg/m2 Rudolph Hurt MD Work Phone: [facility] 09-19-2024 11:19-0500 Body temperature 96.21 [degF] Rudolph Hurt MD Work Phone: [facility] 09-19-2024 11:19-0500 Body weight 86.18 kg Rudolph Hurt MD Work Phone: [facility] 09-19-2024 11:19-0500 Diastolic blood pressure 66 mm[Hg] Rudolph Hurt MD Work Phone: [facility] 09-19-2024 11:19-0500 Heart rate 102 /min Rudolph Hurt MD Work Phone: [facility] 09-19-2024 11:19-0500 Respiratory rate 22 /min Rudolph Hurt MD Work Phone: [facility] 09-19-2024 11:19-0500 SaO2% (BldA) [Mass fraction] 91 % Rudolph Hurt MD Work Phone: [facility] 09-19-2024 11:19-0500 Systolic blood pressure 124 mm[Hg] Rudolph Hurt MD Work Phone: [facility] 08-21-2024 13:37-0500 Body height 170.2 cm Zeyad Tate MD Work Phone: [facility] 08-21-2024 13:37-0500 Body mass index (BMI) [Ratio] 30.7 kg/m2 Zeyad Tate MD Work Phone: [facility] 08-21-2024 13:37-0500 Body weight 88.91 kg Zeyad Tate MD Work Phone: [facility] 08-21-2024 13:37-0500 Diastolic blood pressure 66 mm[Hg] Zeyad Tate MD Work Phone: [facility] 08-21-2024 13:37-0500 Heart rate 83 /min Zeyad Tate MD Work Phone: [facility] 08-21-2024 13:37-0500 Respiratory rate 18 /min Zeyad Tate MD Work Phone: [facility] 08-21-2024 13:37-0500 Systolic blood pressure 100 mm[Hg] Zeyad Tate MD Work Phone: [facility] 04-13-2024 11:43-0400 Body height 170.2 cm Zen Furlong DO Work Phone: [facility] [employer] 04-13-2024 11:43-0400 Body mass index (BMI) [Ratio] 28.66 kg/m2 Zen Furlong DO Work Phone: [facility] [employer] 04-13-2024 11:43-0400 Body temperature 98.01 [degF] Zen Furlong DO Work Phone: [facility] [employer] [facility] 04-13-2024 11:43-0400 Body weight 83.01 kg Zen Furlong DO Work Phone: [facility] [employer] 04-13-2024 11:43-0400 Diastolic blood pressure 60 mm[Hg] Zen Furlong DO Work Phone: [facility] [employer] [facility] 04-13-2024 11:43-0400 Heart rate 88 /min Zen Furlong DO Work Phone: [facility] [employer] 04-13-2024 11:43-0400 SaO2% (BldA) [Mass fraction] 97 % Zen Furlong DO Work Phone: [facility] [employer] 04-13-2024 11:43-0400 Systolic blood pressure 100 mm[Hg] Zen Furlong DO Work Phone: [facility] [employer] [facility] 03-26-2024 13:20-0400 Body height 170.2 cm Zen Furlong DO Work Phone: [facility] [employer] [facility] 03-26-2024 13:20-0400 Body mass index (BMI) [Ratio] 28.72 kg/m2 Zen Furlong DO Work Phone: [facility] [employer] [facility] 03-26-2024 13:20-0400 Body temperature 97.9 [degF] Zen Furlong DO Work Phone: [facility] [employer] [facility] 03-26-2024 13:20-0400 Body weight 83.19 kg Zen Furlong DO Work Phone: [facility] [employer] [facility] 03-26-2024 13:20-0400 Diastolic blood pressure 60 mm[Hg] Zen Furlong DO Work Phone: [facility] [employer] [facility] 03-26-2024 13:20-0400 Heart rate 81 /min Zen Furlong DO Work Phone: [facility] 03-26-2024 13:20-0400 SaO2% (BldA) [Mass fraction] 97 % Zen Furlong DO Work Phone: [facility] [employer] [facility] 03-26-2024 13:20-0400 Systolic blood pressure 110 mm[Hg] Zen Furlong DO Work Phone: [facility] 02-09-2024 16:28-0400 Body height 170.2 cm Zen Furlong DO Work Phone: [facility] 02-09-2024 16:28-0400 Body mass index (BMI) [Ratio] 28.33 kg/m2 Zen Furlong DO Work Phone: [facility] [employer] [facility] 02-09-2024 16:28-0400 Body temperature 98.2 [degF] Zen Furlong DO Work Phone: [facility] [employer] [facility] 02-09-2024 16:28-0400 Body weight 82.06 kg Zen Furlong DO Work Phone: [facility] 02-09-2024 16:28-0400 Diastolic blood pressure 60 mm[Hg] Zen Furlong DO Work Phone: [facility] [employer] [facility] 02-09-2024 16:28-0400 Heart rate 84 /min Zen Furlong DO Work Phone: [facility] 02-09-2024 16:28-0400 Respiratory rate 18 /min Zen Furlong DO Work Phone: [facility] 02-09-2024 16:28-0400 SaO2% (BldA) [Mass fraction] 95 % Zen Flores DO Work Phone: [facility] [employer] [facility] 02-09-2024 16:28-0400 Systolic blood pressure 110 mm[Hg] Zen Flores DO Work Phone: [facility] [employer] [facility] 12-05-2023 12:52-0400 Body height 170.2 cm Demetra DUMONTMACHINE OPERATOR TRANSPLANTER Work Phone: [facility] 12-05-2023 12:52-0400 Body mass index (BMI) [Ratio] 28.16 kg/m2 Demetra Porter APRN-MACHINE OPERATOR TRANSPLANTER Work Phone: [facility] [employer] [facility] 12-05-2023 12:52-0400 Body temperature 97.59 [degF] Demetra DUMONTMACHINE OPERATOR TRANSPLANTER Work Phone: [facility] [employer] [facility] 12-05-2023 12:52-0400 Body weight 81.56 kg Demetra DUMONTMACHINE OPERATOR TRANSPLANTER Work Phone: [facility] [employer] [facility] 12-05-2023 12:52-0400 Diastolic blood pressure 58 mm[Hg] Demetra HUDSON Work Phone: [facility] [employer] [facility] 12-05-2023 12:52-0400 Heart rate 84 /min Demetra GARCIAP Work Phone: [facility] [employer] [facility] 12-05-2023 12:52-0400 Respiratory rate 18 /min Demetra Porter APRNDeangeloMACHINE OPERATOR TRANSPLANTER Work Phone: [facility] [employer] [facility] 12-05-2023 12:52-0400 SaO2% (BldA) [Mass fraction] 98 % Demetra DUMONTMACHINE OPERATOR TRANSPLANTER Work Phone: [facility] [employer] [facility] 12-05-2023 12:52-0400 Systolic blood pressure 96 mm[Hg] Demetra Porter APRNDeangeloMACHINE OPERATOR TRANSPLANTER Work Phone: [facility] [employer] [facility] 07-27-2021 12:15-0500 Body height 170.18 cm Veronica Ginty Other [employer] Other 07-27-2021 12:15-0500 Body mass index (BMI) [Ratio] 27.88 kg/m2 Veronica Ginty Other [employer] Other 07-27-2021 12:15-0500 Body temperature 96 [degF] Veronica Ginty Other [employer] Other 07-27-2021 12:15-0500 Body weight 80.74 kg Veronica Ginty Other [employer] Other 07-27-2021 12:15-0500 SaO2% (BldA) [Mass fraction] 96 % Veronica Ginty Other [employer] Other Encounters Encounter Date Encounter Type Care Provider Facility Start: 11-30-2024 End: 11-30-2024 Clinisync Result Encounter Generic External Data Provider [facility] External Department Unsolicited Start: 11-30-2024 End: 11-30-2024 Clinisync Result Encounter Generic External Data Provider [facility] External Department Unsolicited Start: 11-30-2024 End: 11-30-2024 ambulatory [facility] Start: 11-30-2024 End: 11-30-2024 Encounter for preprocedural cardiovascular examination [facility] Start: 11-19-2024 End: 11-19-2024 ambulatory COLLIN SABA [facility] Start: 11-19-2024 End: 11-19-2024 Office consultation new/estab patient 80 min Collin Saba MD Work Phone: [facility], A Department of [facility] Comment on above: Rheumatoid arthritis involving multiple sites, unspecified whether rheumatoid factor present ([facility]) (Primary Dx); Long-term use of Plaquenil; Long-term use of leflunomide therapy Start: 11-19-2024 End: 11-19-2024 ambulatory COLLINKATLYN SULLIVANAFA [facility] Start: 11-12-2024 End: 11-12-2024 Refill Rudolph Hurt MD Work Phone: [facility] Comment on above: Rheumatoid arthritis involving multiple sites with positive rheumatoid factor (CMS/HCC) Start: 10-19-2024 End: 10-19-2024 Refill Rudolph Hurt MD Work Phone: [facility] Comment on above: Rheumatoid arthritis involving multiple sites with positive rheumatoid factor (CMS/HCC) Start: 10-15-2024 End: 10-15-2024 ambulatory [facility] Start: 09-19-2024 End: 09-19-2024 Bamboo flowsheet Rudolph [...] with polyneuropathy (CMS/HCC); Coronary artery disease involving [place] coronary artery of [place] heart without angina pectoris (CMS/HCC); PAD (peripheral artery disease) (CMS/HCC); POTS (postural orthostatic tachycardia syndrome); Type 1 diabetes mellitus with other circulatory complications (CMS/HCC); Type 1 diabetes mellitus with hyperglycemia (HCC) (CMS/HCC); Encounter for long-term (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 medications; Dyslipidemia (CMS/HCC); 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) Start: 09-19-2024 End: 09-19-2024 ambulatory RUDOLPH HURT Not Available Start: 08-21-2024 End: 08-21-2024 Bamboo flowsheet Zeyad Tate MD Work Phone: [facility] Start: 08-21-2024 End: 08-21-2024 Bamboo flowsheet Zeyad Tate MD Work Phone: [facility] Start: 08-21-2024 End: 08-21-2024 Office outpatient new 60 minutes Zeyad Tate MD Work Phone: [facility] Comment on above: Type 1 diabetes ciara itus with hyperglycemia (HCC) (CMS/HCC) (Primary Dx); Essential (primary) hypertension (CMS/HCC); Vitamin D deficiency, unspecified; Dietary counseling and surveillance; Mixed hyperlipidemia (CMS/HCC); Presence of insulin pump (external) (internal); 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); Encounter for fitting or adjustment of insulin pump Start: 08-21-2024 End: 08-21-2024 ambulatory ZEYAD TATE Not Available Start: 08-13-2024 End: 08-13-2024 ambulatory [facility] Start: 07-09-2024 End: 07-09-2024 ambulatory [facility] Start: 06-11-2024 End: 06-11-2024 ambulatory [facility] Start: 05-14-2024 End: 05-14-2024 ambulatory [facility] Start: 04-30-2024 End: 05-02-2024 Telephone encounter [facility] Start: 04-28-2024 Evaluation and manag ement of inpatient ANTONIO SEAY [facility] Start: 04-27-2024 Evaluation and manag ement of inpatient AUTUMN SCHWARZ [facility] Start: 04-25-2024 Evaluation and manag ement of inpatient [facility] Start: 04-24-2024 Evaluation and manag ement of inpatient BROOKE PERZE [facility] Start: 04-22-2024 Evaluation and manag ement of inpatient [facility] Start: 04-22-2024 Evaluation and manag ement of inpatient [facility] Start: 04-22-2024 [facility]: [facility] Start: 04-21-2024 End: 05-01-2024 Evaluation and management of inpatient JULIO CESAR GARDNER [facility] Start: 04-16-2024 End: 04-16-2024 Orders Only Zen Flores DO Work Phone: [facility] Start: 04-13-2024 End: 04-13-2024 ambulatory [facility] Start: 04-13-2024 End: 04-13-2024 Office outpatient visit 25 minutes Zen Flores DO Work Phone: [facility] Comment on above: Stage 2 chronic kidn ey disease due to type 1 diabetes mellitus (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 ([facility]); Diabetic polyneuropathy associated with type 1 diabetes mellitus ([facility]); Hyperkalemia; Compression fracture of L1 vertebra, sequela Start: 04-13-2024 End: 04-13-2024 ambulatory [facility] Start: 04-03-2024 End: 04-03-2024 Orders Only Zen Flores DO Work Phone: [facility] Comment on above: Medication monitorin g encounter (Primary Dx); Compression fracture of L1 vertebra, sequela; Rheumatoid arthritis involving multiple sites, unspecified whether rheumatoid factor present ([facility]) Start: 04-03-2024 End: 04-03-2024 Refill Radha Ohara FINANCIAL AUDITOR-ART LIBRARIAN Work Phone: [facility] Start: 03-30-2024 End: 04-02-2024 Telephone encounter [facility] Start: 03-29-2024 End: 03-29-2024 Telephone encounter Zen Flores DO Work Phone: [facility] Start: 03-27-2024 End: 03-27-2024 ambulatory [facility] Start: 03-27-2024 End: 03-29-2024 ambulatory [facility] Comment on above: Rheumatoid arthritis involving multiple sites, unspecified whether rheumatoid factor present ([facility]) Start: 03-26-2024 End: 03-26-2024 [facility] Start: 03-26-2024 End: 03-26-2024 Office outpatient visit 25 minutes Zen Bordenng DO Work Phone: [facility] Comment on above: Compression fracture of L1 vertebra, sequela (Primary Dx); Rheumatoid arthritis involving multiple sites, unspecified whether rheumatoid factor present ([facility]); Other fatigue; Medication monitoring encounter; Primary hypertension; Type 1 diabetes mellitus with diabetic polyneuropathy ([facility]); Overweight Start: 03-26-2024 [facility] Start: 03-20-2024 End: 03-20-2024 Refill Zen Bordenng DO Work Phone: [facility] Start: 02-27-2024 End: 02-27-2024 Refill Zen Bordenng DO Work Phone: [facility] Start: 02-09-2024 End: 02-09-2024 Office outpatient visit 15 minutes Zen Bordenng DO Work Phone: [facility] Comment on above: Concussion without l oss of consciousness, initial encounter (Primary Dx); Strain of neck muscle, initial encounter; Strain of right shoulder, initial encounter; Overweight; Contusion of left knee, initial encounter Start: 02-09-2024 End: 02-09-2024 ambulatory [facility] Start: 02-07-2024 End: 02-09-2024 Telephone encounter Demetra Porter FINANCIAL AUDITOR-MACHINE OPERATOR TRANSPLANTER Work Phone: [facility] Start: 01-27-2024 End: 01-27-2024 Orders Only Zen Cornejokaty DO Work Phone: [facility] Start: 01-26-2024 End: 01-27-2024 Refill Demetra Porter FINANCIAL AUDITOR-MACHINE OPERATOR TRANSPLANTER Work Phone: [facility] Comment on above: Rheumatoid arthritis involving multiple sites, unspecified whether rheumatoid factor present ([facility]) Start: 12-26-2023 End: 12-27-2023 Refill Zen Cornejokaty DO Work Phone: [facility] Oncology Start: 12-08-2023 Refill [facility] Barker [facility] Start: 12-05-2023 End: 12-05-2023 ambulatory [facility] Start: 12-05-2023 End: 12-05-2023 Office outpatient visit 25 minutes Demetra Porter FINANCIAL AUDITOR-MACHINE OPERATOR TRANSPLANTER Work Phone: [facility] Comment on above: Rheumatoid arthritis involving multiple sites, unspecified whether rheumatoid factor present ([facility]) (Primary Dx); Status post partial amputation of left foot ([facility]); Diabetic polyneuropathy associated with type 2 diabetes mellitus ([facility]); Severe depression ([facility]); PAD (peripheral artery disease) ([facility]); Compression fracture of L1 vertebra with routine healing, subsequent encounter; Mixed hyperlipidemia Start: 12-05-2023 End: 12-05-2023 ambulatory [address] [facility] Start: 11-29-2023 Orders Only Demetra Porter FINANCIAL AUDITOR-MACHINE OPERATOR TRANSPLANTER Work Phone: [facility] Start: 11-15-2023 Orders Only Demetra Porter FINANCIAL AUDITOR-MACHINE OPERATOR TRANSPLANTER Work Phone: [facility] Start: 11-14-2023 Refill Zen Borden ng DO Work Phone: [facility] Comment on above: Compression fracture of L1 vertebra with routine healing, subsequent encounter Start: 10-31-2023 Refill Zenюлия Cornejolo ng DO Work Phone: [facility] Comment on above: Compression fracture of L1 vertebra with routine healing, subsequent encounter Start: 10-16-2023 Refill Zenюлия Cornejolo ng DO Work Phone: [facility] Comment on above: Compression fracture of L1 vertebra with routine healing, subsequent encounter Start: 10-04-2023 Refill Zenюлия Cornejolo ng DO Work Phone: [facility] Comment on above: Compression fracture of L1 vertebra with routine healing, subsequent encounter Start: 09-12-2023 Refill Zenюлия Cornejolo ng DO Work Phone: [facility] Comment on above: Compression fracture of L1 vertebra with routine healing, subsequent encounter Start: 08-30-2023 Orders Only Zenюлия Cornejolo ng DO Work Phone: [facility] [...] Encounter for preprocedural cardiovascular examination RADHA BRANNON [facility] Start: 05-31-2022 Encounter for preprocedural laboratory examination RADHA BRANNON [facility] Start: 05-31-2022 End: 06-03-[address] [...] Encounter for preprocedural laboratory examination RADHA BRANNON [facility] Start: 03-13-2022 End: 03-15-2022 Evaluation and management of inpatient DR RUDOLPH HURT Facility:[facility] Start: 03-11-2022 End: 03-12-[address] ZEN FLORES Facility:[facility] Start: 03-06-2022 End: 03-07-2022 ambulatory RADHA BRANNON Facility:[facility] Start: 03-06-2022 End: 03-07-2022 Encounter for preprocedural laboratory examination RADHA BRANNON Facility:H1 Start: 03-01-2022 End: 03-02-2022 ambulatory RADHA Nogueira [facility] Facility:H1 Start: 02-18-2022 End: 02-19-[address] BELLA TAPIA Facility:H1 Start: 02-16-2022 End: 02-17-2022 ambulatory RADHA Jero [facility] Facility:H1 Start: 01-26-2022 End: 01-27-2022 ambulatory RADHA Nogueira [facility] Facility:H1 Start: 01-22-2022 End: 01-23-2022 ambulatory RADHA Nogueira [facility] Facility:[facility]1 Start: 12-30-2021 End: 12-31-2021 ambulatory RADHA Nogueira [facility] Facility:H1 Start: 11-03-2021 End: 11-03-[address] ZEN FLORES Facility:H1 Start: 10-27-2021 End: 10-28-[address] DEMETRA PORTER Facility:H1 Start: 07-27-2021 End: 07-27-2021 ambulatory Veronica Mcneill Other [facility] Other Start: 07-27-2021 Office outpatient vi sit 15 minutes Veronica Mcneill [facility] Start: 07-17-2020 End: 08-01-2020 Patient encounter procedure REFERRED SELF Facility:[facility] Start: 06-30-2020 End: 07-14-2020 Evaluation and management of inpatient REFERRED SELF Facility:[facility] Procedures Date Procedure Procedure Detail Performing Clinician Start: 11-30-2024 [facility] APTT Generic Ex ternal Data Provider Start: 11-30-2024 SRMCOH PROTHROMBIN T MARISA INR W/O COUM Generic External Data Provider Start: 11-30-2024 Follow-up visit TY COREA Start: 11-19-2024 Cyclic citrullinated peptide antibody DEMETRA PORTER Comment on above: Result Comment: Interpretation-------- <3 Negative >=3 Positive Performed By: #### 2 [id number], [id number] #### [facility] ([id number]) [address] [place] [address], [address] [place] [address] Start: 08-21-2024 Gluc bld gluc mntr d ev cleared fda spec home use Zeyad Tate MD Work Phone: Start: 07-09-2024 Follow-up visit TY COREA Start: 06-11-2024 Follow-up visit TY COREA Start: 05-14-2024 Follow-up visit TY COREA Start: 04-13-2024 Adult depression screening assessment Zen Flores DO Work Phone: Start: 03-26-2024 Adult depression screening assessment Zen Flores DO Work Phone: Start: 02-09-2024 Follow-up visit Follow-up ZEN FLORES Start: 02-09-2024 Adult depression screening assessment Demetra Porter FINANCIAL AUDITOR-MACHINE OPERATOR TRANSPLANTER Work Phone: Start: 12-05-2023 Adult depression screening assessment Demetra Porter APRN-[facility] Work Phone: Start: 07-12-2023 Adult depression [...] of cholecystectomy History of cholecystectomy Zen Flores [employer] Work Phone: Start: 05-21-2022 History of coronary artery bypass grafting History of coronary artery bypass surgery Zen Flores DO Work Phone: Start: 05-21-2022 History of placement of stent for coronary artery disease History of coronary artery stent placement Zen Flores DO Work Phone: Start: 05-05-2022 Microscopic examinat ion of blood, culture RADHA BRANNON Comment on above: Performed By: #### B [id number] ####[facility] [id number] [place], [place] [address]FjKasia Clement Start: 03-11-2022 Detachment at Left F oot, Partial 4th Ray, Open Approach RADHA [facility] Start: 03-11-2022 Division of Left Geovanny t Subcutaneous Tissue and Fascia, Percutaneous Approach [facility] Start: 03-11-2022 Division of Left Low er Leg Tendon, Open Approach [facility] Start: 03-11-2022 EXC LT METATRSL [facility] BNE 1ST TOE OP [facility] Start: 03-11-2022 Detachment at Left F oot, Partial 4th Ray, Open Approach [facility] Start: 03-11-2022 Division of Left Low er Leg Tendon, Open Approach [facility] Start: 03-11-2022 EXC LT METATRSL [facility] BNE 1ST TOE OP [facility] Start: 03-11-2022 Excision of Left Geovanny t Subcutaneous Tissue and Fascia, Open Approach [facility] Start: 07-01-2020 SUPPLEMENT LUMBAR VERTEBRA WITH SYNTH SUB, PERC APPROACH CHILANGO MARTINEZ Start: 06-30-2020 Antibody screen REFERRE D SELF Comment on above: Performed By: #### [id number] #### [address] Plan of Treatment Date Care Activity Detail Author Start: 09-17-2029 DTaP,Tdap and Td Vaccines (2 - Td or Tdap) DTaP,Tdap and Td Vaccines (2 - Td or Tdap) [facility] Start: 11-19-2025 Adult BMI Screening Adult BMI Screening [facility] Start: 09-19-2025 Screening for malignant neoplasm of breast Mammogram [facility] Comment on above: Postponed from 1999 (Patient Refus ed) Start: 09-19-2025 Screening for malignant neoplasm of colon Colorectal Cancer Screening [facility] Comment on above: Postponed from 1959 (Patient Refus ed) Start: 04-13-2025 Adult BMI Screening Adult BMI Screening [facility] Start: 04-13-2025 Depression Screening Depression Screening [facility] Start: 04-13-2025 Tobacco Screening Tobacco Screening [facility] Start: 03-27-2025 Urine screening for protein Diabetes: Urine Protein Screening [facility] Start: 03-26-2025 Adult BMI Screening Adult BMI Screening [facility] Start: 03-26-2025 Depression Screening Depression Screening [facility] Start: 03-26-2025 Tobacco Screening Tobacco Screening [facility] Start: 02-19-2025 Hemoglobin A1c measurement Diabetes: Hemoglobin A1C [facility] Start: 02-09-2025 Screening for malignant neoplasm of colon Colonoscopy [facility] Comment on above: Postponed from 11/19/2022 (Patient Refus ed) Start: 02-09-2025 Tobacco Screening Tobacco Screening [facility] Start: 02-08-2025 Adult BMI Screening Adult BMI Screening [facility] Start: 02-08-2025 Depression Screening Depression Screening [facility] Start: 02-08-2025 Tobacco Screening Tobacco Screening [facility] Start: 12-20-2024 End: 11-19-2025 CBC W Auto Differential panel - Blood CBC auto differential Lab Routine Rheumatoid arthritis involving multiple sites, unspecified whether rheumatoid factor present ([facility]) Long-term use of leflunomide therapy Expected: 12/20/2024 (Approximate), Expires: 11/19/2025 [facility] Comment on above: Expected: 12/20/2024 (Approximate), Expi res: 11/19/2025 Start: 12-20-2024 End: 11-19-2025 Comprehensive metabolic 2000 panel - Serum or Plasma Comprehensive metabolic panel Lab Routine Rheumatoid arthritis involving multiple sites, unspecified whether rheumatoid factor present ([facility]) Long-term use of leflunomide therapy Expected: 12/20/2024 (Approximate), Expires: 11/19/2025 [facility] Comment on above: Expected: 12/20/2024 (Approximate), Expi res: 11/19/2025 Start: 12-19-2024 End: 12-19-2024 Patient encounter procedure 12/19/2024 3:00 PM EDT Office Visit [facility] Department of [facility] [address] [address] Collin Saba MD [address] [address] [facility], [facility] Department of [facility] Start: 12-10-2024 End: 12-10-2024 Patient encounter procedure 12/10/2024 2:15 PM EDT Office Visit [facility] [address] [place] [address] Rudolph Hurt MD [address] [place] [address] [facility] Start: 12-04-2024 Adult BMI Screening Adult BMI Screening [facility] Start: 12-04-2024 Depression Screening Depression Screening [facility] Start: 12-04-2024 Tobacco Screening Tobacco Screening [facility] Start: 12-03-2024 End: 11-19-2025 CBC W Auto Differential panel - Blood CBC auto differential Lab Routine Rheumatoid arthritis involving multiple sites, unspecified whether rheumatoid factor present ([facility]) Long-term use of leflunomide therapy Expected: 12/03/2024 (Approximate), Expires: 11/19/2025 [facility] Comment on above: Expected: 12/03/2024 (Approximate), Expi res: 11/19/2025 Start: 12-03-2024 End: 11-19-2025 Comprehensive metabolic 2000 panel - Serum or Plasma Comprehensive metabolic panel Lab Routine Rheumatoid arthritis involving multiple sites, unspecified whether rheumatoid factor present ([facility]) Long-term use of leflunomide therapy Expected: 12/03/2024 (Approximate), Expires: 11/19/2025 [facility] Comment on above: Expected: 12/03/2024 (Approximate), Expi res: 11/19/2025 Start: 11-27-2024 End: 11-27-2024 Patient encounter procedure 11/27/2024 1:40 PM EDT Office Visit [facility] [address] [place] [id number] Zeyad Tate MD [address], [address] [place] [address] [facility] Start: 11-19-2024 End: 11-19-2025 C-reactive protein C-reactive protein Lab Routine Rheumatoid arthritis involving multiple sites, unspecified whether rheumatoid factor present ([facility]) Expected: 11/19/2024 (Approximate), Expires: 11/19/2025 [facility] Comment on above: Expected: 11/19/2024 (Approximate), Expi res: 11/19/2025 Start: 11-19-2024 End: 11-19-2025 CBC W Auto Differential panel - Blood [facility] Comment on above: Expected: 11/19/2024 (Approximate), Expi res: 11/19/2025 Start: 11-19-2024 End: 11-19-2025 Comprehensive metabolic 2000 panel - Serum or Plasma [facility] Comment on above: Expected: 11/19/2024 (Approximate), Expi res: 11/19/2025 Start: 11-19-2024 End: 11-19-2025 Cyanocobalamin vitamin b-12 Vitamin B12 Lab Routine Rheumatoid arthritis involving multiple sites, unspecified whether rheumatoid factor present ([facility]) Expected: 11/19/2024, Expires: 11/19/2025 [facility] Comment on above: Expected: 11/19/2024, Expires: Start: 11-19-2024 End: 11-19-2025 Erythrocyte sedimentation rate Erythrocyte Sedimentation Rate (ESR) Lab Routine Rheumatoid arthritis involving multiple sites, unspecified whether rheumatoid factor present ([facility]) Expected: 11/19/2024 (Approximate), Expires: 11/19/2025 [facility] M-Factor [facility] Comment on above: Expected: 11/19/2024 (Approximate), Expi res: 11/19/2025 Start: 11-19-2024 Hemoglobin A1c measurement Diabetes: Hemoglobin A1C [facility] Start: 11-19-2024 End: 11-19-2025 Thyrotropin [Units/volume] in Serum or Plasma [facility] Comment on above: Expected: 11/19/2024, Expires: Start: 11-19-2024 End: 11-19-2025 Vitamin D 25 hydroxy Vitamin D 25 hydroxy Lab Routine Rheumatoid arthritis involving multiple sites, unspecified whether rheumatoid factor present ([facility]) Expected: 11/19/2024, Expires: 11/19/2025 [employer] Work Phone: Comment on above: Expected: 11/19/2024, Expires: Start: 11-19-2024 End: 11-19-2025 XR [employer] [facility] Comment on above: Expected: 11/19/2024, Expires: Start: 11-19-2024 End: 11-19-2025 XR Chest PA and Lateral [facility] Comment on above: Expected: 11/19/2024, Expires: Start: 09-19-2024 End: 09-19-2025 Basic metabolic 1998 panel - Serum or Plasma Basic metabolic panel Lab Routine Encounter for long-term (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 medications Expected: 09/19/2024 (Approximate), Expires: 09/19/2025 [facility] Comment on above: Expected: 09/19/2024 (Approximate), Expi res: 09/19/2025 Start: 09-19-2024 End: 09-19-2025 CBC W Auto Differential panel - Blood CBC and differential Lab Routine Encounter for long-term (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 medications Expected: 09/19/2024 (Approximate), Expires: 09/19/2025 [facility] Comment on above: Expected: 09/19/2024 (Approximate), Expi res: 09/19/2025 Start: 09-19-2024 End: 09-19-2025 Erythrocyte sedimentation rate Sedimentation rate, automated Lab Routine Rheumatoid arthritis involving multiple sites with positive rheumatoid factor ([facility]) Expected: 09/19/2024 (Approximate), Expires: 09/19/2025 [facility] Comment on above: Expected: 09/19/2024 (Approximate), Expi res: 09/19/2025 Start: 09-19-2024 End: 09-19-2025 Hepatic function 2000 panel - Serum or Plasma Hepatic function panel Lab Routine Encounter for long-term (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 medications Expected: 09/19/2024 (Approximate), Expires: 09/19/2025 [facility] Comment on above: Expected: 09/19/2024 (Approximate), Expi res: 09/19/2025 Start: 09-19-2024 End: 09-19-2025 Lipid 1996 panel - Serum or Plasma Lipid panel Lab Routine Dyslipidemia ([facility]) Expected: 09/19/2024 (Approximate), Expires: 09/19/2025 [facility] Comment on above: Expected: 09/19/2024 (Approximate), Expi res: 09/19/2025 Start: 09-19-2024 End: 09-19-2025 Rheumatoid factor [Units/volume] in Serum or Plasma Rheumatoid factor Lab Routine Rheumatoid arthritis involving multiple sites with positive rheumatoid factor ([facility]) Expected: 09/19/2024 (Approximate), Expires: 09/19/2025 [facility] Work Phone: Comment on above: Expected: 09/19/2024 (Approximate), Expi res: 09/19/2025 Start: 09-19-2024 End: 09-19-2024 Patient encounter procedure 09/19/2024 11:30 AM EST Office [facility] [address] [place] [address] Rudolph Hurt MD [address] [place] [address] [facility] [facility] Comment on above: Arrived Start: 08-21-2024 End: 08-21-2024 Patient encounter procedure 08/21/2024 1:20 PM EST Office Visit [facility] [address] [place] [address] Zeyad Tate MD [address] [place] [address] [facility] Comment on above: Arrived Start: 07-12-2024 Adult BMI Screening Adult BMI Screening [facility] Start: 07-12-2024 Depression Screening Depression Screening [facility] Start: 07-12-2024 Medicare Annual Wellness (AWV) Medicare Annual Wellness (AWV) [facility] Start: 07-12-2024 Tobacco Screening Tobacco Screening [facility] Start: 06-30-2024 Glaucoma screening Diabetic Ophthalmology Exam [facility] Start: 05-06-2024 Influenza vaccination [facility] Start: 04-17-2024 End: 04-17-2024 Patient encounter procedure 04/17/2024 11:45 AM EDT Office Visit [facility] [address] [address] Collin Saba MD [address] [address] [facility] Start: 04-13-2024 End: 04-13-2024 Patient encounter procedure 04/13/2024 11:30 AM EDT Office Visit [facility] - Family Medicine [address] [place] [address] Zen Flores DO [address], [facility] [address] [facility] Start: 03-26-2024 End: 03-26-2024 Patient encounter procedure 03/26/2024 1:30 PM EDT Office Visit [facility] [address] [place] [address] Zen Flores DO [address], [facility] [address] [facility] Start: 03-19-2024 End: 03-19-2024 Patient encounter procedure 03/19/2024 2:15 PM EDT Office Visit [facility] [address] [place] [address] Zen Flores DO [address] [place] [address] [facility] Start: 11-20-2023 Screening for malignant neoplasm of breast Mammogram [facility] Comment on above: Postponed from 11/19/2022 (Patient Refus ed) Start: 11-20-2023 Screening for malignant neoplasm of colon Colonoscopy [facility] Comment on above: Postponed from 11/19/2022 (Patient Refus ed) Start: 11-10-2023 End: 11-10-2023 Patient encounter procedure 11/10/2023 1:50 PM EST Office Visit [facility] [address] [place] [address] Zen Flores DO [address] [place] [address] [facility] Start: 09-13-2023 Diabetic foot examination Diabetic Foot Exam [facility] Start: 11-19-2022 Screening for malignant neoplasm of breast Mammogram [facility] Start: 11-19-2022 Screening for malignant neoplasm of colon Colonoscopy [facility] Start: 09-30-2020 Hemoglobin A1c measurement Diabetes: Hemoglobin A1C [facility] Start: 12-20-2009 Administration of varicella zoster vaccine Zoster (Shingles) Vaccine (1 of 2) [facility] Start: 1999 Screening for malignant neoplasm of breast Mammogram [facility] Start: 12-20-1989 Screening for malignant neoplasm of cervix [facility] Start: 12-20-1980 Screening for malignant neoplasm of cervix Pap Smear [facility] Start: 12-20-1977 Adult BMI Follow Up Plan Adult BMI Follow Up Plan [facility] Start: 12-20-1969 Glaucoma screening Diabetes: Retinopathy Screening [facility] Start: 1959 Screening for malignant neoplasm of colon [facility] End: 04-13-2025 Basic metabolic 2000 panel - Serum or Plasma Basic Metabolic Panel Lab Routine 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 1 Occurrences starting 04/13/2024 until 04/13/2025 [employer] Work Phone: Comment on above: 1 Occurrences starting 04/13/2024 until 04/13/2025 C reactive protein [Mass/volume] in Serum or Plasma C-reactive protein Lab Routine Rheumatoid arthritis involving multiple sites, unspecified whether rheumatoid factor present ([facility]) 11/19/2024 2:38 PM EDT [facility] End: 03-26-2025 CBC panel - Blood by Automated count CBC Lab Routine Other fatigue 1 Occurrences starting 03/26/2024 until 03/26/2025 [facility] Comment on above: 1 Occurrences starting 03/26/2024 until 03/26/2025 End: 11-19-2025 CCP Ab CCP Ab Lab Routine Rheumatoid arthritis involving multiple sites, unspecified whether rheumatoid factor present ([facility] 1 Occurrences starting 11/19/2024 until 11/19/2025 [facility] Comment on above: 1 Occurrences starting 11/19/2024 until 11/19/2025 Cobalamin (Vitamin B 12) [Mass/volume] in Serum or Plasma Vitamin B12 Lab Routine Rheumatoid arthritis involving multiple sites, unspecified whether rheumatoid factor present ([facility]) 11/19/2024 2:38 PM EDT [facility] End: 03-26-2025 Comprehensive metabolic 2000 panel - Serum or Plasma Comprehensive metabolic panel Lab Routine Primary hypertension 1 Occurrences starting 03/26/2024 until 03/26/2025 [facility] Comment on above: 1 Occurrences starting 03/26/2024 until 03/26/2025 Cyclic citrullinated peptide IgG Ab [Units/volume] in Serum or Plasma CCP Ab Lab Routine Rheumatoid arthritis involving multiple sites, unspecified whether rheumatoid factor present ([facility]) 11/19/2024 2:38 PM EDT [facility] End: 03-26-2025 Drug Screen, Urine Drug Screen, Urine Lab Routine Medication monitoring encounter 1 Occurrences starting 03/26/2024 until 03/26/2025 [employer] Work Phone: Comment on above: 1 Occurrences starting 03/26/2024 until 03/26/2025 End: 04-03-2025 Drug Screen, Urine Drug Screen, Urine Lab Routine Medication monitoring encounter Rheumatoid arthritis involving multiple sites, unspecified whether rheumatoid factor present ([facility] 1 Occurrences starting 04/03/2024 until 04/03/2025 [employer] Work Phone: Comment on above: 1 Occurrences starting 04/03/2024 until 04/03/2025 Erythrocyte sedimentation rate by Photometric method Erythrocyte Sedimentation Rate (ESR) Lab Routine Rheumatoid arthritis involving multiple sites, unspecified whether rheumatoid factor present ([facility]) 11/19/2024 2:38 PM EDT [facility] End: 03-26-2025 Microalbumin - Albumin: Creatinine Urine Ratio Microalbumin - Albumin: Creatinine Urine Ratio Lab Routine Type 1 diabetes mellitus with diabetic polyneuropathy ([facility]) 1 Occurrences starting 03/26/2024 until 03/26/2025 [facility] Comment on above: 1 Occurrences starting 03/26/2024 until 03/26/2025 End: 11-19-2025 Rheumatoid factor Rheumatoid factor Lab Routine Rheumatoid arthritis involving multiple sites, unspecified whether rheumatoid factor present ([facility] 1 Occurrences starting 11/19/2024 until 11/19/2025 [facility] on above: 1 Occurrences starting 11/19/2024 until 11/19/2025 Rheumatoid factor [Units/volume] in Serum by Nephelometry Rheumatoid factor Lab Routine Rheumatoid arthritis involving multiple sites, unspecified whether rheumatoid factor present ([facility] 11/19/2024 2:38 PM EDT [facility] Vitamin D+Metabolite s [Mass/volume] in Serum or Plasma Vitamin D 25 hydroxy Lab Routine Rheumatoid arthritis involving multiple sites, unspecified whether rheumatoid factor present ([facility]) 11/19/2024 2:38 PM EDT [facility] Immunizations Immunization Date Immunization Notes Care Provider Fa cili 07-12-2023 influenza, injectabl e, quadrivalent, preservative free Zen Furlong DO [facility] 07-12-2023 influenza virus vacc ine, unspecified formulation Zen Furlong DO Work Phone: [facility] 08-05-2022 influenza, injectabl e, quadrivalent, preservative free Zen Furlong DO Work Phone: [facility] 09-01-2021 Pfizer Purple Cap SARS-CoV-2 Vaccination Zeyad Tate MD Work Phone: [facility] 05-21-2021 influenza, injectabl e, quadrivalent, preservative free Zen Furlong DO Work Phone: [facility] 11-27-2020 Pfizer Purple Cap SARS-CoV-2 Vaccination Zeyad Tate MD Work Phone: [facility] 11-06-2020 COVID-19, mRNA, LNP- S, PF, 30mcg/0.3mL Dose Zen Furlong DO Work Phone: [facility] 11-03-2020 SARS-COV-2 (COVID-19 ) Vaccine, Unspecified Zen Furlong DO Work Phone: [facility] 06-11-2020 pneumococcal conjuga te vaccine, 13 valent Zen Furlong DO Work Phone: [facility] 06-05-2020 influenza virus vacc ine, unspecified formulation Zen Furlong DO Work Phone: [facility] 06-05-2020 pneumococcal vaccine , unspecified formulation Zen Furlong DO Work Phone: [facility] 05-20-2020 influenza, injectabl e, quadrivalent, preservative free Zen Furlong DO Work Phone: [facility] 05-20-2020 pneumococcal polysaccharide vaccine, 23 valent Zen Furlong DO Work Phone: [facility] 09-17-2019 tetanus toxoid, redu timmy diphtheria toxoid, and acellular pertussis vaccine, adsorbed Zen Furlong DO Work Phone: [facility] Services 06-08-2019 influenza, injectabl e, quadrivalent, preservative free Zen Furlong DO Work Phone: [facility] 06-04-2019 influenza, seasonal, injectable Zeyad Tate MD Work Phone: [facility] 11-28-2012 tetanus toxoid, unspecified formulation Zen Flores DO Work Phone: [facility] Payers Date Payer Category Payer Medicaid [id number] 2022 Medicaid [id number] 2021 Medicare AETNA MEDICARE A ETNA MEDICARE PLAN (HMO) [id number] 2021-Present [phone] [id number] [place] [id number] 2021 Medicare HMO AETNA MEDICARE [id number] 1959 Unknown [id number] 2.16.840.1.924237.3.579.2. 647 1959 Unknown [id number] 2.16.840.1.151456.3.579.2. 647 1959 Unknown [id number] 2.16.840.1.921078.3.579.2. 593 1959 Unknown [id number] 2.16.840.1.622038.3.579.2. 593 1959 Unknown [id number] 2.16.840.1.646931.3.579.2. 593 1959 Unknown [id number] 2.16.840.1.792617.3.579.2. 593 1959 Unknown [id number] 2.16.840.1.311643.3.579.2. 593 1959 Unknown [id number] 2.16.840.1.860332.3.579.2. 593 1959 Unknown [id number] 2.16.840.1.254377.3.579.2. 593 1959 Unknown [id number] 2.16.840.1.430463.3.579.2. 59 1959 Unknown [id number] 2.16.840.1.840123.3.579.2. 593 1959 Unknown [id number] 2.16.840.1.279056.3.579.2. 593 1959 Unknown [id number] 2.16.840.1.499903.3.579.2. 593 1959 Unknown [id number] 2.16.840.1.474390.3.579.2. 593 1959 Unknown [id number] 2.16.840.1.212198.3.579.2. 593 1959 Unknown [id number] 2.16.840.1.868253.3.579.2. 593 1959 Unknown [id number] 2.16.840.1.014135.3.579.2. 593 1959 Unknown [id number] 2.16.840.1.314243.3.579.2. 593 1959 Unknown [id number] 2.16.840.1.084239.3.579.2. 593 1959 Unknown [id number] 2.16.840.1.884839.3.579.2. 593 1959 Unknown [id number] 2.16.840.1.086948.3.579.2. 593 1959 Unknown [id number] 2.16.840.1.297976.3.579.2. 593 1959 Unknown [id number] 2.16.840.1.836352.3.579.2. 593 1959 Unknown [id number] 2.16.840.1.704746.3.579.2. 593 1959 Unknown [id number] 2.16.840.1.292384.3.579.2. 593 1959 Unknown [id number] 2.16.840.1.715137.3.579.2. 593 1959 Unknown [id number] 2.16.840.1.461399.3.579.2. 593 1959 Unknown [id number] 2.16.840.1.322580.3.579.2. 593 1959 Unknown [id number] 2.16.840.1.614408.3.579.2. 593 1959 Unknown [id number] 2.16.840.1.700745.3.579.2. 593 1959 Unknown [id number] 2.16.840.1.041347.3.579.2. 1286 1959 Unknown [id number] 2.16.840.1.218077.3.579.2. 1285 1959 Unknown [id number] 2.16.840.1.792099.3.579.2. 128 1959 Unknown [id number] 2.16.840.1.889065.3.579.2. 1285 1959 Unknown [id number] 2.16.840.1.615973.3.579.2. 128 1959 Unknown [id number] 2.16.840.1.509143.3.579.2. 1259 1959 Unknown [id number] 2.16.840.1.880196.3.579.2. 1259 1959 Unknown [id number] 2.16.840.1.306064.3.579.2. 1286 1959 Unknown [id number] 2.16.840.1.847893.3.579.2. 1285 1959 Unknown [id number] 2.16.840.1.477870.3.579.2. 1285 1959 Unknown [id number] 2.16.840.1.348372.3.579.2. 1285 1959 Unknown [id number] 2.16.840.1.244612.3.579.2. 1285 1959 Unknown [id number] 2.16.840.1.932536.3.579.2. 1285 1959 Unknown [id number] 2.16840.1.019824.3.579.2. 1285 1959 Unknown [id number] 2.16.840.1.831750.3.579.2. 6 1959 Medicare [id number] 1960 Self-pay Private Health Insurance [facility] [id number] Unknown [id number] 2.16.840.1.921400.19 Social History Date Type Detail Facility Start: 07-01-2024 End: 09-12-2024 Sex Assigned At [facility] Start: 07-27-2022 End: 07-01-2024 Tobacco smoking status ALIS Ex-smoker [facility] Start: 09-05-1975 End: 06-06-1997 History of tobacco use Current smoker [facility] Start: 09-05-1975 End: 06-06-1997 History of tobacco use Cigarette Smoker [facility] Start: 07-27-2022 End: 07-01-2024 Tobacco use and exposure Smokeless tobacco non-user [facility] Start: 08-14-2024 End: 09-19-2024 Alcoholic beverage intake Ex-drinker (finding) [facility] Start: 07-01-2024 End: 09-12-2024 History of Social function [facility] Start: 1960 Sex assigned at Not on file [facility] Start: 09-15-2022 Sexual orientation Heterosexual (finding) [facility] How often do you nee d to have someone help you when you read instructions, pamphlets, or other written material from your doctor or pharmacy [SILS] Never [facility] Do you belong to any clubs or organizations such as [employer] groups, [employer], [employer] or [employer] groups, or school groups? No [facility] Are you now , , , , never or living with a partner? [facility] How often to you hav e a drink containing alcohol? Never [facility] How hard is it for y ou to pay for the very basics like food, housing, medical care, and heating Not very hard [facility] Do you feel stress - tense, restless, nervous, or anxious, or unable to sleep at night because your mind is troubled all the time - these days [OSQ] To some extent [facility] (I/We) worried whenicki er (my/our) food would run out before (I/we) got money to buy more. Sometimes true [facility] The food that (I/we) bought just didn't last, and (I/we) didn't have money to get more. Never true [facility] Do you belong to any clubs or organizations such as [facility] [facility] groups, [employer], [employer] or [employer] groups, or school groups? Yes [facility] Start: 1960 Sex Assigned At Female [facility] Start: 09-15-2022 Gender identity Identifies as female gender (finding) [facility] How hard is it for y ou to pay for the very basics like food, housing, medical care, and heating Somewhat hard [facility] Start: 09-18-2019 Sex Female (finding) [facility] Medical Equipment Procedure Code Equipment Code Equipment Origin al Text Equipment Identifier Dates End: 09-19-2024 Clinical Notes 07-27-2021 to 11-30-2024 Collin Saba MD - 11/19/2024 2:15 PM Jon Hurt MD - 09/19/2024 12:14 PM Melina Hurt MD - 09/19/2024 12:14 PM Melina Hurt MD - 09/19/2024 12:14 PM EST Note Date & Type Note Facility 11-30-2024 Note [facility] 11-19-2024 History of Present illness Narrative Images from the original note were not included. [address] [facility] [address] [facility] [id number] Date of Service: 11/19/2024 Subjective: Monica Acosta [...] chest pain 25 tablet 1 blood-glucose meter ([employer] VERIO REFLECT METER) misc use as directed cyclobenzaprine (FLEXERIL) 10 mg [...] total) before bedtime. 60 tablet 2 lancets (Quality PracticeTOUCH DELICA PLUS LANCET) 33 gauge misc TEST [...] activity and complete the homunculus joint exam. BUSTILLOS-28 (CRP): -- BUSTILLOS-28 (ESR): -- Tender (BUSTILLOS-28): [...] multiple sites, unspecified whether rheumatoid factor present [place] - Vitamin D 25 hydroxy; Future - [...] or corrected. Thank you for your understanding. [facility] Dr. Collin Saba MD [address], [address] [place] [address] Office: [phone] documented in this encounter [facility] 10-15-2024 Note [facility] 09-19-2024 History of Present illness Narrative Associated [...] vascular. Associated Problem(s): Coronary artery disease involving [place] coronary artery of [place] heart without angina pectoris (CMS/HCC) No pain [...] Return to vascular. Coronary artery disease involving [place] coronary artery of [place] heart without angina pectoris (CMS/HCC) No pain [...] MG tablet methotrexate 2.5 MG tablet HYDROcodone-acetaminophen (Antonito) 5-325 MG tablet Other Relevant Orders Rheumatoid [...] Hepatic function panel documented in this encounter [facility] 08-21-2024 History of Present illness Narrative Monica [...] 46% , avg 209, TDD 35. CGM 347-50. had depression IM: 04/2022 follow up from type 1 diabetes. Basal rates at 12 a.m 1, 8 a.m., 1.2, 12 p.m 1. ICR at 12 am 7, 9 am 6.5, 5 PM 7. ISS 1:65. A1c in the office 7.1. M 65 %, AUTO 35 , Basal 50%, bolus 50% , avg 217, CGM 462-24 avg 168 IM: 01/2022 follow up from type 1 diabetes. Basal rates at 12 a.m. 1; 8 a.m., 1.2, 12 p.m 1. ICR at 12 am 9, 8 a, 8.8 12 PM 8, 5 PM 8. ISS 1:50. A1c in the office 8.6. M 50%, AUTO 50, Basal 60%, bolus 40% , avg 231, CGM 247-51 IM:: 06/2021 follow up from type 1 [...] the office 7.8. had back surgery in [place] IM: 03/2020 follow up from type 1 [...] saw her today with tele medicine with [facility]. HPI: 09/24 New patient sent from Dr. [...] 80 mg, Daily Blood Glucose Monitoring Suppl (OneTouch Verio Reflect) w/Device kit Does not apply Cariprazine HCl (Vraylar) 1.5 MG capsule Oral celecoxib (CELEBREX) 200 mg, 2 times daily cholecalciferol (VITAMIN D-3) 1,000 Units, Oral, Daily Continuous Glucose Seal Mixing Operator (FreeStyle Tru 14 Day Sterling) device Does not apply Continuous Glucose Sensor [...] Other, As needed, Use as instructed HYDROcodone-acetaminophen (Antonito) 5-325 MG tablet No dose, route, or [...] MG tablet Oral OneTouch Delica Lancets 33G [facility] [place] Does not apply pantoprazole (PROTONIX) 40 mg, [...] (BMI) 31.0-31.9, adult CAD (coronary artery disease) ([facility]) Current use of insulin ([facility]) Diabetes ([facility]) Dietary counseling and surveillance Encounter for fitting and adjustment of insulin pump Essential (primary) hypertension ([facility]) Fracture of right hand Heart problem High cholesterol ([facility]) History of open heart surgery HTN (hypertension) ([facility] Hypertension ([facility]) FDC (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 ([facility]) Mixed hyperlipidemia ([facility]) Obesity, unspecified PAD (peripheral artery disease) ([facility]) Personal history of other medical treatment Triple Bypass POTS (postural orthostatic tachycardia syndrome) Presence of insulin pump (external) (internal) Rheumatoid arthritis ([facility]) Type 1 diabetes mellitus with other circulatory complications ([facility]) Vitamin D deficiency, unspecified Past Surgical [...] Type 1 diabetes mellitus with hyperglycemia (HCC) ([facility]) - POCT glucose manually resulted - POCT glycosylated hemoglobin (Hb A1C) docked device - Insulin Aspart (NovoLOG) 100 UNIT/ML solution; Inject 50 Units as directed Daily We will continue the same settings. Essential (primary) hypertension ([facility]) Vitamin D deficiency, unspecified Dietary counseling and surveillance Diet and exercise reviewed with the patient Mixed hyperlipidemia ([facility]) Presence of insulin pump (external) (internal) FDC (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 ([facility]) Encounter for fitting or adjustment of insulin pump Follow up in about 3 months (around 11/19/2024). documented in this encounter [facility] 08-13-2024 Note [facility] 07-09-2024 Note [facility] 06-11-2024 Note [facility] 05-14-2024 Note [facility] 05-01-2024 Note Chronic CHF, unknown type. [facility] 05-01-2024 Note [facility] 05-01-2024 Note [facility] 05-01-2024 Note [facility] 04-30-2024 Note [facility] 04-30-2024 Note [facility] 04-30-2024 Note [facility] 04-30-2024 Note [facility] 04-30-2024 Miscellaneous Notes Patient is at [facility] she fell and broke both legs and will be transferring to [facility] rehab documented in this encounter [facility] 04-30-2024 Telephone encounter Note Patient is at [facility] she fell and broke both legs and will be transferring to the [facility] for rehab [facility] 04-30-2024 Note [facility] 04-30-2024 Note [facility] 04-29-2024 Note [facility] 04-29-2024 Note [facility] 04-28-2024 Note [facility] 04-28-2024 Note [facility] 04-27-2024 Note [facility] 04-26-2024 Note [facility] 04-26-2024 Note [facility] 04-26-2024 Note [facility] 04-26-2024 Note 10:00-SW sent update s to facility-await precert. OTM will continue to follow. [facility] 04-26-2024 Note [facility] 04-25-2024 Note [facility] 04-25-2024 Note 8:30-SW sent updates to [facility]-currently awaiting precert that was requested yesterday. OTM will continue to follow. [facility] 04-25-2024 Note [facility] 04-24-2024 Note [facility] 04-24-2024 Note [facility] 04-24-2024 Note [facility] 04-24-2024 Note [facility] 04-24-2024 Note [facility] 04-24-2024 Note [facility] 04-23-2024 Note New referral sent to Ros[facility] B[facility] 04-23-2024 Note [facility] 04-23-2024 Note [facility] 04-23-2024 Note [facility] 04-23-2024 Note [facility] 04-23-2024 Note [facility] 04-22-2024 Note Addendum created 1430 by Kirt Nicole MD Intraprocedure Event edited, Intraprocedure Staff edited [facility] 04-22-2024 Note [facility] 04-22-2024 Note [facility] 04-22-2024 Note [facility] 04-22-2024 Note [facility] 04-22-2024 Note [facility] 04-22-2024 Note [facility] 04-13-2024 History of Present illness Narrative Subjective [...] rheumatoid arthritis pain. She was seeing a packing floor worker in [place] prior to coming to [place] and was referred to Rheumatology here but [...] Exam Vitals reviewed. Exam conducted with a tank cooper present. Constitutional: General: She is not in [...] multiple sites, unspecified whether rheumatoid factor present ([facility] - [facility] [place], [place]; Future Refer back to Rheumatology. Importance of modifying disease progression discussed. Stay on Celebrex for now since she has stage 2 chronic kidney disease. 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 - Basic Metabolic Panel; Future Recheck BMP to recheck potassium. She has stage 2 chronic kidney disease with microalbuminuria Diabetic polyneuropathy associated with type 1 diabetes mellitus ([facility] - gabapentin (NEURONTIN) 100 mg capsule; Take [...] in the morning. documented in this encounter [facility] 03-30-2024 Miscellaneous Notes Patient is very upset and would like to ask you some questions like what stage her kidneys are in. She stated if you can call her when you are done with patients today that would be great. documented in this encounter [facility] 03-30-2024 Telephone encounter Note Patient is very upset and would like to ask you some questions like what stage her kidneys are in. She stated if you can call her when you are done with patients today that would be great. [facility] 03-29-2024 Miscellaneous Notes Patient called and she is complaining about her drug screen and norco, she said she takes it every day and now she is out. I dont know what you would like to do I sent in few more and then we need to discuss different treatment options Notified and appointment scheduled documented in this encounter [facility] 03-29-2024 Telephone encounter Note Patient called and she is complaining about her drug screen and norco, she said she takes it every day and now she is out. I dont know what you would like to do [facility] 03-29-2024 Telephone encounter Note I sent in few more and then we need to discuss different treatment options [facility] 03-29-2024 Telephone encounter Note Notified and appointment scheduled [facility] 03-27-2024 History of Present illness Narrative Urine specimen obtained for drug screen documented in this encounter [facility] 03-26-2024 History of Present [...] witnessed apnea or headaches. She sees the varnisher as week for type 1 diabetes. The [...] multiple sites, unspecified whether rheumatoid factor present ([facility]) As above. Other fatigue - CBC; Future Check CBC. [place] sleep scale showed normal risk. She was moderate risk with STOPBANG scale. May need further workup Medication monitoring encounter - Drug Screen, Urine; Future Check urine for drugs of abuse. Primary hypertension - Comprehensive metabolic panel; Future Check CMP. Blood pressure at goal. Type 1 diabetes mellitus with diabetic polyneuropathy ([facility]) - Microalbumin - Albumin: Creatinine Urine Ratio; Future Check ACR. Overweight She is overweight. She would benefit from weight loss. Diet exercise and weight loss discussed. Not really able to exercise much due to rheumatoid arthritis [facility] History of Present illness Narrative Images from the original note were not included. Subjective Patient ID: Monica Acosta is a 63 y.o. female. She was at [facility] watching grandson play T-ball and her son [...] spasms. Strain of right shoulder, initial encounter [id number]-ym-[id number] exercises given. Risk of frozen shoulder discussed. She defers physical therapy. Medications as above. Overweight She is overweight. It is contributing to diabetes. She would benefit from weight loss Contusion of left knee, initial encounter Resolved [facility] 02-07-[facility]24 Miscellaneous Notes ----- Message from BECCA Cordero sent at 12/05/2023 1:22 PM EDT ----- Regarding: controlled substance Due late February, early March for RA Sent jesika cervantes documented in this encounter [facility] 02-07-2024 Telephone encounter Note ----- Message from BECCA Cordero sent at 12/05/2023 1:22 PM EDT ----- Regarding: controlled substance Due late February, early March for RA [facility] 02-07-2024 Telephone encounter Note Sent mychart msg [facility] 01-27-2024 History of Present illness Narrative The OARRS/MAPPS database was reviewed today and found to be appropriate. No indication of medication diversion, or non compliance. documented in this encounter [facility] 12-05-2023 History of Present illness Narrative .Subjective Patient ID: Monica Acosta is a 62 y.o. female. 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 - HYDROcodone-acetaminophen (NORCO) 7.5-325 mg per tablet; Take 1 tablet by mouth 2 (two) times a day as needed for pain. Status post partial amputation of left foot ([facility]) Diabetic polyneuropathy associated with type 2 diabetes mellitus ([facility]) - TSH; Future Severe depression ([facility]) PAD (peripheral artery disease) ([facility]) Compression fracture of L1 vertebra with routine [...] of medication diversion, or non compliance. Demetra Porter APRN-MYRA 12/05/23 1329 documented in this encounter [facility] 11-29-2023 History of Present illness Narrative The OARRS/MAPPS database was reviewed today and found to be appropriate. No indication of medication diversion, or non compliance. Demetra Porter APRN-MYRA 11/29/23 0745 documented in this encounter [facility] 11-15-2023 History of Present illness Narrative The OARRS/MAPPS database was reviewed today and found to be appropriate. No indication of medication diversion, or non compliance. RichBECCA Vasquez 11/15/23 0759 documented in this encounter [facility] 10-16-2023 Miscellaneous Notes She has requesting a refill of her controlled substance but she is overdue for an appointment. She needs to set 1 up as soon as possible documented in this encounter [facility] 10-16-2023 Telephone encounter Note She has requesting a refill of her controlled substance but she is overdue for an appointment. She needs to set 1 up as soon as possible [facility] 10-04-2023 Miscellaneous Notes Rx sent in. She is due for a controlled substance recheck next week [facility] Telephone encounter Note Rx sent in. She is due for a controlled substance recheck next week [facility] 07-27-2021 Evaluation note Encounter Date Diagnosis [...] Patient care instructions given in writting by [facility] At Home document [employer] Other Evaluation note* Diagnosis Type 1 diabetes mellitus with hyperglycemia (HCC) ([facility])- Primary Essential (primary) hypertension ([facility]) Unspecified essential hypertension Vitamin D deficiency, unspecified Dietary counseling and surveillance Mixed hyperlipidemia ([facility]) Mixed hyperlipidemia Presence of insulin pump (external) (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 ([facility]) Encounter for fitting or adjustment of insulin pump Fitting and adjustment of insulin pump documented in this encounter [facility] HealthcareEvaluation note* Diagnosis Rheumatoid arthritis involving multiple sites with positive rheumatoid factor ([facility] [facility])- Primary Type I diabetes mellitus with polyneuropathy ([facility]) Coronary artery disease involving [place] coronary artery of [place] heart without angina pectoris ([facility]) PAD (peripheral artery disease) ([facility]) Unspecified peripheral vascular disease POTS (postural orthostatic tachycardia syndrome) Unspecified tachycardia Type 1 diabetes mellitus with other circulatory complications ([facility]) Type 1 diabetes mellitus with hyperglycemia (HCC) ([facility]) Encounter for long-term (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 medications Encounter for long-term (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 other medications Dyslipidemia ([facility]) Other 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 hyperlipidemia FDC (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 ([facility]) documented in this encounter [facility] HealthcareEvaluation note* Diagnosis Compression fracture of L1 vertebra with routine healing, subsequent encounter [facility] Diagnosis Rheumatoid arthritis involving multiple sites with positive rheumatoid factor ([facility])- Primary Type I diabetes mellitus with polyneuropathy ([facility]) Coronary artery disease involving [place] coronary artery of [place] heart without angina pectoris ([facility]) PAD (peripheral artery disease) ([facility]) Unspecified peripheral vascular disease POTS (postural orthostatic tachycardia syndrome) Unspecified tachycardia Type 1 diabetes mellitus with other circulatory complications ([facility]) Type 1 diabetes mellitus with hyperglycemia (HCC) ([facility]) Encounter for long-term (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 medications Encounter for long-term (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 other medications Dyslipidemia ([facility]) Other 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 hyperlipidemia 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 ([facility]) Rheumatoid arthritis involving multiple sites with positive rheumatoid factor ([facility]) documented in this encounter [facility] HealthcareEvaluation note* Diagnosis Concussion without loss of consciousness, initial encounter- Primary Strain of neck muscle, initial encounter Strain of right shoulder, initial encounter Overweight Contusion of left knee, initial encounter [facility] in this [facility]* Diagnosis Rheumatoid arthritis involving multiple sites, unspecified whether rheumatoid factor present ([facility]) documented in this encounter [facility] SystemEvaluation note* Diagnosis Compression fracture of L1 vertebra with routine healing, subsequent encounter documented in this encounter [facility] SystemEvaluation note* Diagnosis Compression fracture of L1 vertebra with routine healing, subsequent encounter documented in this encounter [facility] SystemEvaluation note* Diagnosis Compression fracture of L1 vertebra, sequela- Primary Rheumatoid arthritis involving multiple sites, unspecified whether rheumatoid factor present ([facility]) Other fatigue Medication monitoring encounter Encounter for therapeutic drug monitoring Primary hypertension Unspecified essential hypertension Type 1 diabetes mellitus with diabetic polyneuropathy ([facility]) Overweight documented in this encounter [facility] SystemEvaluation note* Diagnosis Rheumatoid arthritis involving multiple sites, unspecified whether rheumatoid factor present ([facility]) documented in this encounter [facility] SystemEvaluation note* Diagnosis Medication monitoring encounter- Primary Encounter for therapeutic drug monitoring Compression fracture of L1 vertebra, sequela Rheumatoid arthritis involving multiple sites, unspecified whether rheumatoid factor present ([facility]) documented in this encounter [facility] SystemEvaluation note* Diagnosis Rheumatoid arthritis involving multiple sites, unspecified whether rheumatoid factor present ([facility])- Primary Status post partial amputation of left foot ([facility]) Diabetic polyneuropathy associated with type 2 diabetes mellitus ([facility]) Severe depression ([facility]) Depressive disorder, not elsewhere classified PAD (peripheral artery disease) ([facility]) Unspecified peripheral vascular disease Compression fracture of L1 vertebra with routine healing, subsequent encounter Mixed hyperlipidemia documented in this encounter [facility] System[facility] note* Diagnosis Stage 2 chronic kidney disease due to type 1 diabetes mellitus ([facility])- Primary Rheumatoid arthritis involving multiple sites, unspecified whether rheumatoid factor present ([facility]) 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 ([facility]) Diabetic polyneuropathy associated with type 1 diabetes mellitus ([facility]) Hyperkalemia Hyperpotassemia Compression fracture of L1 vertebra, sequela documented in this encounter [facility] System[facility] note* Diagnosis Rheumatoid arthritis involving multiple sites with positive rheumatoid factor ([facility])- Primary Type I diabetes mellitus with polyneuropathy ([facility]) Coronary artery disease involving [place] coronary artery of [place] heart without angina pectoris ([facility]) PAD (peripheral artery disease) ([facility]) Unspecified peripheral vascular disease POTS (postural orthostatic tachycardia syndrome) Unspecified tachycardia Type 1 diabetes mellitus with other circulatory complications ([facility]) Type 1 diabetes mellitus with hyperglycemia (HCC) ([facility]) Encounter for long-term (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 medications Encounter for long-term (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 other medications Dyslipidemia (CMS/HCC) Other 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 hyperlipidemia FDC (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 ([facility]) Rheumatoid arthritis involving multiple sites with positive rheumatoid factor ([facility]) documented in this encounter [facility] HealthcareEvaluation note* Diagnosis Rheumatoid arthritis involving multiple sites, unspecified whether rheumatoid factor present ([facility])- Primary Long-term use of [place] Long-term use of leflunomide therapy documented [facility] - Reported* Type Description Date Medical History diabetes mallitus Medical History chronic depression Medical History high blood pressure Medical History high cholesterol Medical History rheumatoid arthritis Surgical History open heart surgery Ventario Other InstructionsNot on filedocumented in this encounter [facility] filed[facility] in this encounter [facility] filedocumented in this encounter [facility]* Attachments The following attachments cannot be sent through Care Everywhere. * Frozen Shoulder Exercises (Turkmen) documented in [facility] on [...] Authorized Specialty Diagnoses / Procedures Referred By Narendra t Referred To Contact Rheumatology Diagnoses Rheumatoid arthritis involving multiple sites, unspecified whether rheumatoid factor present ([facility]) Zen Flores, DO [address], [place] [address] Collin Saba MD [address] [address] Referral ID Status Reason Start Date Expiration Date Visits Requested Visits Authorized [id number] Authorized Specialty Services Required 04/13/2024 04/13/2025 1 1 [facility] for visit Narrative* Consultation (Routine) - Pending Review Specialty Diagnoses / Procedures Referred By Contac t Referred To Contact Rheumatology Diagnoses Rheumatoid arthritis involving multiple sites with positive rheumatoid factor ([facility]) Procedures [place] OFFICE OUTPATIENT VISIT 60-74 MINS HIGH MDM [id number] (SNOMED CT) - AMB REFERRAL TO RHEUMATOLOGY Rudolph Hurt MD [address] [place] [address] Phone: tel: fax: Collin Saba MD [address] [address] Phone: tel: fax: Referral ID Status Reason Start Date Expiration Date V isits Requested Visits Authorized [id number] Pending Review 09/19/2024 03/18/2025 1 1 [facility] Summary Purpose Family History No Family History [...] Records Found Hospital Course Note MR#: [id number] [facility] Pt. Name: Monica Acosta Admitted: [...] regimen and follow up with the primary varnisher. HOSPITAL COURSE: The patient is a 59-year-old [...] and content) DATE CREATED AUTHOR 10/15/2020 [facility] DATE CREATED AUTHOR AUTHOR'S ORGANIZ ATION 09/23/2021 [facility] DATE CREATED AUTHOR AUTHOR'S ORGANIZ ATION 10/19/2022 [facility] DATE CREATED AUTHOR AUTHOR'S ORGANIZ ATION 04/16/2024 [facility] DATE CREATED AUTHOR AUTHOR'S ORGANIZ ATION 09/22/2024 [facility] EPIC DATE CREATED AUTHOR AUTHOR'S ORGANIZ ATION 11/21/2024 [facility] DATE CREATED AUTHOR AUTHOR'S ORGANIZ ATION 12/01/2024 [facility] REASON FOR VISIT (unrecogniz ed section [...] Care Teams (unrecognized sec tion and content) Online Merchandising Manager Relationship Specialty Start Date End Date Zen Flores MD [address] [place] [address] PCP - General Family Medicine 08/14/24 Online Merchandising Manager Relationship Specialty Start Date End Date Zen Flores MD [address], [place] [address] PCP - General Family Medicine 08/14/24 Online Merchandising Manager Relationship Specialty Start Date End Date Rudolph Hurt MD [address] [place] [phone] PCP - General Family Medicine 09/19/24 Online Merchandising Manager Relationship Specialty Start Date End Date Zen Flores MD [address], [place] [address] PCP - General Family Medicine 08/14/24 Online Merchandising Manager Relationship Specialty Start Date End Date Zen Flores DO [address], [place] [address] PCP - General Family Medicine 09/18/19 Online Merchandising Manager Relationship Specialty Start Date End Date Zen Flores DO [address], [place] [address] PCP - General Family Medicine 09/18/19 Online Merchandising Manager Relationship Specialty Start Date End Date Rudolph Hurt MD [address] [place] [phone] PCP - General Family Medicine 09/19/24 Online Merchandising Manager Relationship Specialty Start Date End Date Zen Flores DO [address] [place] [address] PCP - General Family Medicine 09/18/19 Online Merchandising Manager Relationship Specialty Start Date End Date ChantaljazzyZen burns DO [address] [place] [address] PCP - General Family Medicine 09/18/19 Online Merchandising Manager Relationship Specialty Start Date End Date ChantaljazzyZen burns DO [address] [place] [address] PCP - General Family Medicine 09/18/19 Online Merchandising Manager Relationship Specialty Start Date End Date ChantaljazzyZen burns DO [address] [place] [address] PCP - General Family Medicine 09/18/19 Online Merchandising Manager Relationship Specialty Start Date End Date Zen Flores DO [address] [place] [address] PCP - General Family Medicine 09/18/19 Online Merchandising Manager Relationship Specialty Start Date End Date ChantaljazzyZen burns DO [address] [place] [address] PCP - General Family Medicine 09/18/19 Online Merchandising Manager Relationship Specialty Start Date End Date ChantaljazzyZen burns DO [address] [address] PCP - General Family Medicine 09/18/19 Online Merchandising Manager Relationship Specialty Start Date End Date Rudolph Hurt MD [address] [place] [phone] PCP - General [facility] 09/19/24 Online Merchandising Manager Relationship Specialty Start Date End Date Rudolph Hurt MD [address] [place] [phone] PCP - [facility] 09/21/24 Online Merchandising Manager Relationship Specialty Start Date End Date Rudolph Hurt MD [address] [place] [phone] PCP - General Family Medicine 09/19/24 FOR RECORDS PERTAINING TO PATIENTS WHO ARE [...] BE BASED ON THE PRIMARY CLINICAL RECORDS. [facility]. provides no warranty or guarantee of the accuracy or completeness of information in this document.
--- NOTE | 2024-12-03 07:00 | CA_ITS ---
Patient Name: MONICA ACOSTA MR#: [id number] : 1960 Exam Date: 12/03/2024 Ordering Doctor: DR TY CARTER M.D. ECHOCARDIOGRAM REPORT PROCEDURE: CA ECHO DOPPLER COMPLETE INDICATIONS: Preop, shortness of breath, CABGx3, diabetes COMPARISON: None. DESCRIPTION: COMPLETE ECHOCARDIOGRAM Real-time transthoracic echocardiography with 2D, M-mode, spectral and color flow Doppler performed. QUALITY: Technical quality was good. LEFT VENTRICLE: Normal chamber size. Abnormal septal motion due to prior open heart surgery. Systolic function is normal. LV EF: Normal left ventricular ejection fraction, (55-60%). DIASTOLIC: Normal diastolic function. ATRIAL SEPTUM: LEFT ATRIUM: Normal chamber size. RIGHT ATRIUM: Normal chamber size. RIGHT VENTRICLE: Normal chamber size. Mildly reduced right ventricular systolic function. TRICUSPID VALVE: Normal mobility and thickness. No stenosis with trivial regurgitation. Doppler studies reveal mildly (35-45) elevated right sided pressures. RVSP 36 mmHg MITRAL VALVE: Normal mobility and thickness. No evidence of mitral valve stenosis. Mild mitral annular calcification. No mitral regurgitation. AORTIC VALVE: Normal trileaflet appearance. No visible sclerosis. Normal leaflet mobility. No evidence of aortic valve stenosis. No aortic regurgitation. AORTIC ROOT: Normal diameter and appearance, measuring 2.6 cm. PULMONIC VALVE: Normal thickness and mobility. No stenosis. PERICARDIUM: No evidence of pericardial effusion. IVC: Not well visualized. PLEURA: CONCLUSION: 1. Normal left ventricular size and systolic function. Estimated LVEF is 55 to 60%. 2. Normal right ventricular size with mildly reduced systolic function. 3. No significant valvular dysfunction. 4. Mildly elevated right-sided pressures. 5. No pericardial effusion. Adult Echocardiography Procedure Report Left Ventricle LVEDD (3.7 - 5.6 cm): 2.97 cm LVESD (2.2 - 4.0 cm): 2.28 cm LVIVS thickness (0.6 - 1.2 cm): 0.80 cm LVPW thickness (0.5 - 1.0 cm): 0.77 cm e': 0.10 m/s E - e': 4.93 LVOT Max Gradient: 2.26 mm[Hg] LVOT Area (cm2): 0.75 m/s Peak Velocity (LVOT): 0.75 m/s Mean Velocity (LVOT): 0.50 m/s LVOT Diameter 1.97 cm Left Atrium LA Volume Index (2D A2C): 21.16 ml/m2 Left Atrium Systolic Dimension: 3.13 cm Mitral Valve MV E to A Ratio: 0.63 Mitral Valve A-Wave Peak Velocity: 0.80 m/s Mitral Valve E-Wave Peak Velocity: 0.51 m/s Right Ventricle Aorta AO Root Diam: 2.57 cm Aortic Valve AoV Area (Peak Pawel): 1.85 cm2, 1.85 cm2 AoV Area (VTI): 2.14 cm2, 2.14 cm2 Peak Velocity(Antegrade Flow): 1.23 m/s Peak Gradient(Antegrade Flow): 6.10 mm[Hg] Mean Velocity(Antegrade Flow): 0.85 m/s Mean Gradient(Antegrade Flow): 3.21 mm[Hg] Velocity Time Integral: 23.52 cm Tricuspid Valve Peak Velocity (Regurgitant Flow): 2.85 m/s Pulmonic Valve Mean Gradient: 1.71 mm[Hg] Mean Velocity: 0.61 m/s Peak Velocity: 0.91 m/s, 0.82 m/s Peak Gradient: 2.66 mm[Hg], 3.31 mm[Hg] Right Atrium Right Atrium Systolic Pressure: 23.34 ml, 23.34 ml Dictated by: Ty Carter M.D. on 12/03/2024 at 19:48 Approved by: Ty Carter M.D. on 12/03/2024 at 19:51
== END 2024-12-03 06:41 | disposition home or self-care (01) ==
LOC: CARD 06:40
PROVIDERS: PCP Family Medicine; Visit Provider Internal Medicine Interventional Cardiology
DX: Z01.810 Encounter for preprocedural cardiovascular examination (principal); R06.02 Shortness of breath; I25.10 Atherosclerotic heart disease of native coronary artery without angina pectoris
CPT/HCPCS: 93306

== ENCOUNTER 2024-12-05 12:41 | Outpatient (OUT) | payer MEDICARE, MEDICAID, SELFPAY ==
--- NOTE | 2024-12-05 12:48 | CT_ITS ---
The [address] [address] Patient Name: MONICA ACOSTA MRN: [id number] date: 1960 Sex: F Assigned Patient Location: CT Current Patient Location: [facility] Accession/Order Number: [id number] Exam Date: 12/05/2024 14:10 Report Date: 12/05/2024 14:22 At the request of: RADHA BRANNON DPM Procedure: CT lower leg RT wo con CT of the right lower leg without contrast TECHNIQUE: The CT exam was performed using one or more the following dose reduction techniques: Automated exposure control, adjustment of the MA and/or Kv according to patient size, or use of the iterative reconstruction technique. COMPARISON: Plain film imaging 11/21/2024 demonstrating posttraumatic changes. No evidence of osteomyelitis. History of wound involving the distal aspect of the right tibia and fibula for 2 months duration. Additional history of bone sticking out of the region of the wound. HISTORY: History of the above No skin marker identified. Plain film demonstrates skin marker in the anterior lower tibia. There is a region of 5 bony prominence/soft tissue calcification in the anterior portion of the distal tibia adjacent to soft tissue wound. This area is appears be well-defined. There is no acute bony destruction present. There is adjacent cortical defect in this region. 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 Lucency extends to the intramedullary dwaine. This is in the region of heel/healing fracture of the distal tibia. the intramedullary fixation hardware is intact. The support screws are intact. No subcutaneous air. No identifiable soft tissue abscess. Healed/healing distal fibular shaft fracture. CT/CT lower leg RT wo con IMPRESSION: Findings likely representing 2 cm bony sequestration in the anterior portion of the distal tibia associated with the region of soft tissue wound. Impression dictated by: Solo Hill M.D.12/05/2024 2:22 PM Dictation Location: [place] [address] Electronically authenticated by: [id number] Y Date: 12/05/2024 14:22
== END 2024-12-05 12:42 | disposition home or self-care (01) ==
LOC: CT 12:41
PROVIDERS: PCP Family Medicine; Visit Provider Podiatrist Foot & Ankle Surgery
DX: M86.661 Other chronic osteomyelitis, right tibia and fibula (principal)
CPT/HCPCS: 73700

== ENCOUNTER 2024-12-06 10:37 | Day surgery (SDC) | payer MEDICARE, MEDICAID, SELFPAY ==
[2024-11-30 15:11] VITALS: BP 131/80; PULSE 84; TEMP 36.2; O2SAT 96; BMI 29.4
[2024-12-06] VITALS (8 sets, daily range): BP systolic 105–137; BP diastolic 61–91; PULSE 71–89; TEMP 36.1–36.4; O2SAT 92–99; BMI 29.4
[2024-12-06 10:51] LABS: Basophils Absolute Auto 0.1 10^3/uL (0.0-0.1); Basophils Percent Auto 0.8 % (0.2-2.0); Eosinophils Absolute Auto 0.4 10^3/uL (0.0-0.7); Eosinophils Percent Auto 3.4 % (0.9-7.0); Hematocrit 47.2 % (36.0-48.0); Hemoglobin 15.2 g/dL (12.0-16.0); Immature Granulocytes Abs Auto 0.04 10^3/uL (0.00-0.03); Immature Granulocytes Pct Auto 0.4 % (0.0-0.5); Lymphocytes Absolute Auto 1.5 10^3/uL (1.2-3.8); Lymphocytes Percent Auto 14.5 % (20.5-60.0); Mean Corpuscular HGB Conc 32.2 g/dL (29.9-35.2); Mean Corpuscular Hemoglobin 29.4 pg (26.7-34.0); Mean Corpuscular Volume 91.3 fL (81.0-99.0); Mean Platelet Volume 11.7 fL (9.5-13.5); Monocytes Absolute Auto 0.6 10^3/uL (0.3-0.8); Monocytes Percent Auto 5.3 % (1.7-12.0); Neutrophils Absolute Auto 7.8 10^3/uL (1.4-6.5); Neutrophils Percent Auto 75.6 % (43.0-75.0); Platelet Count 292 10^3/uL (150-450); Red Blood Count 5.17 10^6/uL (4.20-5.40); Red Cell Distribution Width 16.8 % (11.0-15.0); White Blood Count 10.3 10^3/uL (4.0-11.0)
[2024-12-06 11:04] LABS: Glucometer 187 mg/dL (74-106)
--- NOTE | 2024-12-06 11:44 | PC.NURSE ---
1 unsuccessful attempt by other staff member
[2024-12-06] MEDS: LACTATED RINGER'S SOLUTION 1,000 ML 50 ML IV (11:45)
[2024-12-06] MEDS: CEFAZOLIN SODIUM 2 GM/50 ML D5W PREMIX IV (12:21)
--- NOTE | 2024-12-06 12:30 | PC.NURSE ---
Saphenous/ popliteal block started at 1202 and completed at 1214 by nurse German anesthesia; procedure tolerated well; insulin pump and monitor removed
--- NOTE | 2024-12-06 12:49 | PM.ORONB ---
Brief Operative Note Date of procedure: 12/06/24 Pre-op diagnosis general: Right leg chronic osteomyelitis, ulceration with bone necrosis, tibia fracture sequela Post-op diagnosis: same as pre-op Procedure: Procedure performed: Partial excision of right tibia with delayed primary closure of ulceration Indications for procedure: Patient is a 63-year-old female with multiple medical comorbidities who suffered right tibia shaft fracture which required intramedullary nail fixation months ago which was performed at an outside facility. Subsequently she developed an ulceration over the right anterior leg and presented to our wound center. Despite local wound care the ulceration did not progress and at her most recent appointment there was exposed bone noted from the ulceration. CT scan was ordered which showed secondary bone healing of her fracture with stable fixation with a prominent fracture fragment underneath the ulcer site. I discussed the potential risks and benefits of surgical intervention versus continued conservative care and patient wished to undergo the above procedures. She has been on p.o. antibiotics over the last 2 weeks and has not noticed any local signs of acute infection. Intraoperative findings: Ulceration noted on anterior tibia with bone protruding out. Ulceration measures 1.2 x 0.8 cm. Exposed bone was discolored and soft. Bone excised did not bleed well so bone was debrided until healthy bleeding occurred. No evidence of acute infection such as pus. Closure was obtained without tension Procedure in detail: Patient was identified in preop holding by myself which time correct side and site were marked and consent was obtained. Regional anesthesia was performed by the anesthesia team and patient was brought back in the operating theater and placed on table in supine position. Preoperative antibiotics were started and the right lower extremity was prepped and draped in usual sterile fashion with a thigh tourniquet. Formal timeout was performed and the right lower extremity was exsanguinated and tourniquet was inflated. Ulceration was excised and a 3-1 ellipse then extended proximally and distally. Then a combination of sharp and blunt dissection allowed full exposure of the protruding bone as well as underlying compromised bone which was yellowish and soft. Debridement of this bone showed no bleeding and therefore was excised with an osteotome. Then a rasp and curettes were used until healthy bleeding bone was noted. Excised bone was sent to the lab for analysis. Surgical site was irrigated with copious saline. Then a clean curette was used to obtain a specimen from the tibia which was sent to microbiology for analysis. The tourniquet was deflated with a prompt hyperemic response and all remaining tissue bled appropriately. A small defect in the bone was noted and was packed with vancomycin impregnated observable bone cement. Then additional vancomycin powder was placed into the surgical site prior to closure. Skin edges were friable therefore a 3 deep sutures were placed with observable suture were placed to protect the skin. Skin was then closed with nonabsorbable suture and a dry sterile dressing was then placed. Patient tolerated the procedure and anesthesia well was transferred to the recovery room with vital signs stable and brisk capillary refill to the toes. Postoperative plan: Discharge home under family's care Weightbearing as tolerated May change surgical dressing in 3 days and wash the surgical site with soap and water and replace gauze dressing Continue antibiotics as prescribed Prescription for [place] 5/325 #30 was placed in the chart Follow-up in wound center within 1 week Implants: Stimulan absorbable bone cement with vancomycin Anesthesia: MAC and regional Surgeon: Montez Montoya Estimated blood loss (mL): 25 Pathology: other (tibia to micro/path) Condition: stable Disposition: PACU
[2024-12-06] MEDS: VANCOMYCIN HCL 1,000 MG VIAL 2000 MG TOPICAL (13:19)
[2024-12-06 13:59] LABS: Glucometer 165 mg/dL (74-106)
--- NOTE | 2024-12-06 14:08 | XR_ITS ---
[address] [address] Patient Name: MONICA ACOSTA MRN: [id number] date: 1960 Sex: F Assigned Patient [facility]: [facility] Current Patient Location: [facility] Accession/Order Number: [id number] Exam Date: 12/06/2024 14:30 Report Date: 12/06/2024 14:32 At the request of: RADHA BRANNON [facility] Procedure: XR tibia fibula RT 2V 2 views right tibia and fibula plain film HISTORY: Postop right lower leg osteomyelitis COMPARISON: CT 12/05/2024 ACUTE FINDINGS: Stable bony alignment. No acute complication. DEGENERATIVE CHANGE: Unremarkable SOFT TISSUE FINDINGS: Atherosclerosis JOINT EFFUSION: None POSTOP CHANGES: Postsurgical bony resection changes of the anterior portion of the distal tibia. Stable hardware. BONE MINERALIZATION: Adequate XR/XR tibia fibula RT 2V IMPRESSION: Bony resection changes of the anterior distal tibia. No complication. Intact hardware. No bony or soft tissue complication. Impression dictated by: Solo Hill M.D.12/06/2024 2:32 PM Dictation Location: [place] [address] Electronically authenticated by: [id number] Y Date: 12/06/2024 14:32
[2024-12-06] MEDS: OXYCODONE HCL 5 MG TABLET 10 MG PO (14:20)
--- NOTE | 2024-12-06 14:31 | PC.NURSE ---
Medicated for left hip pain that radiates down leg with oral narcotic pain medication
--- NOTE | 2024-12-06 14:49 | PC.NURSE ---
States that right hip also hurts; assisted to chair and extremity elevated and ice applied
== END 2024-12-06 15:20 | disposition home or self-care (01) ==
PROVIDERS: Anesthesiology; PCP Family Medicine; Visit Provider Podiatrist Foot & Ankle Surgery
PROC: (CPT 1480; principal; 2024-12-06 12:00)
DX: E10.69 Type 1 diabetes mellitus with other specified complication (principal); M86.661 Other chronic osteomyelitis, right tibia and fibula; L97.814 Non-pressure chronic ulcer of other part of right lower leg with necrosis of bone; S82.391S Other fracture of lower end of right tibia, sequela; E10.622 Type 1 diabetes mellitus with other skin ulcer; Z79.4 Long term (current) use of insulin; Z90.49 Acquired absence of other specified parts of digestive tract; Z95.1 Presence of aortocoronary bypass graft; Z95.5 Presence of coronary angioplasty implant and graft; I25.10 Atherosclerotic heart disease of native coronary artery without angina pectoris
CPT/HCPCS: 27640; 36415; 64445; 64450; 73590; 76942; 82948; 85025; 87070; 87102; 87116; 87205; 87206; 88305; 99999; C1713; J0690; J2250; J2405; J2704; J2795; J3010; J3370

== ENCOUNTER 2024-12-14 10:38 | Outpatient (OUT) | payer MEDICARE, MEDICAID, SELFPAY | END 2024-12-14 10:39 | disposition home or self-care (01) | LOC: WC 10:38 | PROVIDERS: PCP Family Medicine; Visit Provider Podiatrist Foot & Ankle Surgery | DX: L89.610 Pressure ulcer of right heel, unstageable (principal); L97.814 Non-pressure chronic ulcer of other part of right lower leg with necrosis of bone | CPT/HCPCS: G0463 ==

== ENCOUNTER 2025-01-02 15:58 | Outpatient (OUT) | payer MEDICARE, MEDICAID, SELFPAY | END 2025-01-02 15:59 | disposition home or self-care (01) | LOC: WC 15:58 | PROVIDERS: PCP Family Medicine; Visit Provider Podiatrist Foot & Ankle Surgery | DX: L89.610 Pressure ulcer of right heel, unstageable (principal) | CPT/HCPCS: A6213; G0463 ==

== ENCOUNTER 2025-02-13 10:43 | Outpatient (OUT) | payer MEDICARE, MEDICAID, SELFPAY ==
--- OUTSIDE RECORDS SUMMARY | 2025-02-13 10:45 | XMS_ITS | Encounter Summary ---
Author Organization [facility] Address [address] [place] [address] Care Team Providers Care Letterer Name Role Phone Zeyad Tate MD Primary Care Provider [phone] Zen Viera MD Primary Care Provider [phone] Rudoplh Peter MD Primary Care Provider [phone] Encounter Details Date Type Department Care Team (Late Contact Info) Description 08/16/2023 Abstract [facility] [address] [place] [id number] Panchito Pardo DPM [address] [place], [place] [id number] Social History Tobacco Use Types Packs/Day Years Used Date Smoking Tobacco: Never Smokeless Tobacco: Never Alcohol Use Standard Drinks/Week Comments Not Currently 0 (1 standard drink = 0.6 oz pur e alcohol) Comments Unknown Sex and Gender Information Value Date Recorded Sex Assigned at Not on file Legal Sex Female 11:21 PM EDT Gender Identity Not on file Sexual Orientation Straight 05/04/2023 9: 27 AM EDT COVID-19 Exposure Response Date Recorded In the last 10 days, have yo u been in contact with someone who was confirmed or suspected to have Coronavirus/COVID-19? No / Unsure 08/01/2023 11:13 AM EST documented as of this encounter Plan of Treatment Upcoming Encounters Date Type Department Care Team (Late Contact Info) Description 03/14/2025 1:30 PM EDT Office Visit [facility] [address] [place] [address] Rudolph Peter MD [address] [place] [address] 04/01/2025 2:10 PM EDT Office Visit [facility] [address] [place] [address] Zeyad Tate MD [address] [place] [address] documented as of this encounter Visit Diagnoses Not on filedocumented in this encounter Care Teams Letterer Relationship Specialty Start Date End Date Zeyad Tate MD [address] [place] [address] PCP - General Endocrinology 06/06/23 08/13/24 Zen Viera MD [address] [place] [address] PCP - General Family Medicine 08/14/24 09/18/24 Rudolph Peter MD [address] [place] [address] PCP - General Family Medicine 09/19/24 documented as of this encounter
--- OUTSIDE RECORDS SUMMARY | 2025-02-13 10:46 | XMS_ITS | Encounter Summary ---
Author Organization [facility] Address [facility] [id number] [address] [place] [address] Care Team Providers Care Syrup Shed Supervisor Name Role Phone Rudolph Peter MD Primary Care Provider [phone] Encounter Details Date Type Department Care Team (Late st Contact Info) Description 04/05/2023 Orders Only [facility] - Family Medicine [address] [place] [address] Dario Love, DO [address] [place] [address] Social History Tobacco Use Types Packs/Day Years Used Date Smoking Tobacco: Former Cigarettes 2.5 24 1 976 - 06/06/1997 Smokeless Tobacco: Never Alcohol Use Standard Drinks/Week Comments Not Currently 0 (1 standard drink = 0.6 oz pur e alcohol) Social Connection and Isolat ion Panel [NHANES] Answer Date Recorded In a typical week, how many times do you talk on the phone with family, friends, or neighbors? More than three times a week 11/19/2022 How often do you get togethe r with friends or relatives? More than three times a week 11/19/2022 How often do you attend chur ch or episcopal services? More than 4 times per year 11/19/2022 Do you belong to any clubs o r organizations such as yarsanism groups, unions, fraternal or athletic groups, or school groups? Yes 11/19/2022 How often do you attend meet ings of the clubs or organizations you belong to? More than 4 times per year 11/19/2022 Are you , , di vorced, , never , or living with a partner? 11/19/2022 AUDIT-C Answer Date Recorded Q1: How often do you have a drink containing alc ohol? Never 01/30/2020 Average Number of Drinks Not on file 020 Frequency of Binge Drinking Not on file 01/04 Overall Financial Resource Strain (CARDIA) Answe r Date Recorded How hard is it for you to pa y for the very basics like food, housing, medical care, and heating? Not very hard 11/19/2022 PHQ-2 Answer Date Recorded Total Score 16 04/01/2023 [facility] [place] of Occupat ional Health - Occupational Stress Questionnaire Answer Date Recorded Do you feel stress - tense, restless, nervous, or anxious, or unable to sleep at night because your mind is troubled all the time - these days? To some extent 11/19/2022 Exercise Vital Sign Answer Date Recorde d On average, how many days pe r week do you engage in moderate to strenuous exercise (like a brisk walk)? 0 days 04/01/2023 On average, how many minutes do you engage in exercise at this level? 0 min 04/01/2023 PRAPARE - Transportation Answer Date Re corded In the past 12 months, has l ack of transportation kept you from medical appointments or from getting medications? No 11/03 In the past 12 months, has l ack of transportation kept you from meetings, work, or from getting things needed for daily living? No 11/19/2022 Housing Instability Answer Date Recorde d Are you worried or concerned that in the next two months you may not have stable housing that you own, rent or stay in as a part of a household? No 11/19/2022 Childcare Answer Date Recorded Do problems getting child ca re make it difficult for you to work or study? No 11/19/2022 Employment Answer Date Recorded Do you need help finding a l ocal career center and/or a training program? No 11/19/2022 Hunger Screening Answer Date Recorded Within the past 12 months we worried whether our food would run out before we got money to buy more. Sometimes True 023 Within the past 12 months th e food we bought just didn't last and we didn't have money to get more. Sometimes True 11/19/2022 Purpose - Life Answer Date Recorded I have a purpose and direction in my life. Lamonte chairez Agree nor Disagree 11/19/2022 Comments No Sex and Gender Information Value Date Recorded Sex Assigned at Female 09/15/2022 1:36 AM EST Legal Sex Female 10:27 AM EST Gender Identity Female 09/15/2022 1:36 AM EST Sexual Orientation Straight 09/15/2022 1: 36 AM EST documented as of this encounter Plan of Treatment Not on file documented as of this encounter Visit Diagnoses Not on filedocumented in this encounter Additional Health Concerns Assessment Noted Time PHQ-9 Depression Total Score: 16 023 10:13 AM EDT documented as of this encounter Care Teams Syrup Shed Supervisor Relationship Specialty Start Date End Date Rudolph Peter MD PCP - General Family Medicine 09/21/24 documented as of this encounter
--- OUTSIDE RECORDS SUMMARY | 2025-02-13 10:46 | XMS_ITS | Encounter Summary ---
Author Organization [facility] Address [id number] [address] [place] [address] Care Team Providers Care Converting Supervisor Name Role Phone Rudolph Peter MD Primary Care Provider [phone] Reason for Visit * Reason Onset Date Comments Med Refill 11/29/2022 Encounter Details Date Type Department Care Team (Late st Contact Info) Description 11/29/2022 Refill [facility] - Family Medicine [address] [place] [address] Zen Viera, DO [address] [facility], [place] [address] Compression fracture of L1 vertebra with routine healing, subsequent encounter Social History Tobacco Use Types Packs/Day Years [...] often do you attend chur ch or spiritism services? More than 4 times per year 11/19/2022 Do you belong to any clubs o r organizations such as sabianist groups, unions, fraternal or athletic groups, or [...] 11/19/2022 PHQ-2 Answer Date Recorded Total Score 9 11/19/2022 [facility] [place] of Occupat ional Health - Occupational Stress [...] to strenuous exercise (like a brisk walk)? 7 days 11/19/2022 On average, how many minutes do you engage in exercise at this level? 10 min 11/19/2022 PRAPARE - Transportation Answer Date Re corded [...] Recorded Do you need help finding a [facility] career center and/or a training program? No [...] a purpose and direction in my life. Neith er Agree nor Disagree 11/19/2022 Comments No Sex and Gender Information Value Date Recorded Sex Assigned at Female 09/15/2022 1:36 AM EST Legal Sex Female 10:27 AM EST Gender Identity Female 09/15/2022 1:36 AM EST Sexual Orientation Straight 09/15/2022 1: 36 AM EST COVID-19 Exposure Response Date Recorded In the last month, have you been in contact with someone who was confirmed or suspected to have Coronavirus / COVID-19? No / Unsure 11/19/2022 9:38 AM EDT documented as of this encounter Plan of Treatment Not on file documented as of this encounter Visit Diagnoses Diagnosis Compression fracture of L1 vertebra with routine healing, subsequent encounter documented in this encounter Additional Health Concerns Assessment Noted Time PHQ-9 Depression Total Score: 9 11/20/19 23 9:43 AM EDT documented as of this encounter Care Teams Converting Supervisor Relationship Specialty Start Date End Date Rudolph Peter MD PCP - General Family Medicine 09/21/24 documented as of this encounter
--- OUTSIDE RECORDS SUMMARY | 2025-02-13 10:46 | XMS_ITS | Encounter Summary ---
Author Organization [facility] Address [facility] [id number] [address] [place] [address] Care Team Providers Care Maintenance Clerk Name Role Phone Rudolph Peter MD Primary Care Provider [phone] Encounter Details Date Type Department Care Team (Late st Contact Info) Description 03/29/2024 Orders Only [facility] - Family Medicine [address] [place] [address] Zen Viera, DO [address], [place] [address] Social History Tobacco Use Types Packs/Day Years [...] often do you attend chur ch or restoration services? More than 4 times per year 11/19/2022 Do you belong to any clubs o r organizations such as christian groups, unions, fraternal or athletic groups, or [...] like food, housing, medical care, and heating? Somewhat hard 12/03/2023 PHQ-2 Answer Date Recorded Total Score 17 03/26/2024 [facility] of Occupat ional Health - Occupational Stress [...] medical appointments or from getting medications? No 11/05 In the past 12 months, has l ack of transportation kept you from meetings, work, or from getting things needed for daily living? No 12/03/2023 Housing Instability Answer Date Recorde d Are you worried or concerned that in the next two months you may not have stable housing that you own, rent or stay in as a part of a household? No 12/03/2023 Childcare Answer Date Recorded Do problems getting [...] before we got money to buy more. Never True 03/26/2024 Within the past 12 months th e food we bought just didn't last and we didn't have money to get more. Never True 03/26/2024 Purpose - Life Answer Date Recorded I [...] Assessment Noted Time PHQ-9 Depression Total Score: 17 024 1:18 PM EDT documented as of this encounter Care Teams Maintenance Clerk Relationship Specialty Start Date End Date Rudolph Peter MD PCP - General Family Medicine 09/21/24 documented as of this encounter
--- OUTSIDE RECORDS SUMMARY | 2025-02-13 10:46 | XMS_ITS | Encounter Summary ---
Author Organization [facility] Address [id number] [address] [place] [address] Care Team Providers Care Geophysicist Name Role Phone Rudolph Peter MD Primary Care Provider [phone] Encounter Details Date Type Department Care Team (Late st Contact Info) Description 03/31/2023 Orders Only [facility] - Family Medicine [address] [place] [address] External, Scanning Provider Social History Tobacco Use Types Packs/Day Years [...] often do you attend chur ch or cheondoism services? More than 4 times per year 11/19/2022 Do you belong to any clubs o r organizations such as shinto groups, unions, fraternal or athletic groups, or [...] Answer Date Recorded Total Score 16 04/01/2023 [facility] of Occupat ional Health - Occupational [...] Recorded Do you need help finding a [facility] career center and/or a training program? No [...] purpose and direction in my life. Lamonte er Agree nor Disagree 11/19/2022 Comments No Sex and Gender Information Value Date Recorded Sex Assigned at Female 09/15/2022 1:36 AM EST Legal Sex Female 10:27 AM EST Gender Identity Female 09/15/2022 1:36 AM EST Sexual Orientation Straight 09/15/2022 1: 36 AM EST documented as of this encounter Plan of Treatment Not on file documented as of this encounter Procedures Procedure Name Priority Date/Time Associated Diagnosis Comments XR ABDOMEN AP 1 VW Routine 03/29/2023 8:44 AM EDT documented in this encounter Results * X-ray abdomen ap 1 view (03/29/2023 8:44 AM EDT) Anatomical Region Laterality Modality Body, Abdomen N/A Computed Radiogr aphy us Scanning Provider External IMG DIAGNOSTIC IMAGIN G ORDERABLES Final Result documented in this encounter Visit Diagnoses Not on filedocumented in this encounter Additional Health Concerns Assessment Noted Time PHQ-9 Depression Total Score: 10 12/27/2 023 10:54 AM EDT documented as of this encounter Care Teams Geophysicist Relationship Specialty Start Date End Date Rudolph Peter MD PCP - General Family Medicine 09/21/24 documented as of this encounter
--- OUTSIDE RECORDS SUMMARY | 2025-02-13 10:46 | XMS_ITS | Encounter Summary ---
Author Organization [facility] Address [id number] [address] [place] [address] Care Team Providers Care Banding Machine Operator Name Role Phone Rudolph Peter MD Primary Care Provider [phone] Reason for Visit * Reason Onset Date Comments Med Refill 08/03/2022 Encounter Details Date Type Department Care Team (Late st Contact Info) Description 08/03/2022 Refill [facility] Internal Medicine - Family Medicine [address] [place] [address] Zen Viera, DO [address] [facility], [place] [address] Compression fracture of L1 vertebra with routine healing, subsequent encounter Social History Tobacco Use Types Packs/Day Years Used Date Smoking Tobacco: Former Cigarettes 2.5 24 1 976 - 06/06/1997 Smokeless Tobacco: Never Alcohol Use Standard Drinks/Week Comments Not Currently 0 (1 standard drink = 0.6 oz pur e alcohol) AUDIT-C Answer Date Recorded Q1: How often do you have a drink containing alc ohol? Never 01/30/2020 Average Number of Drinks Not on file 020 Frequency of Binge Drinking Not on file 01/04 Childcare Answer Date Recorded Childcare Unknown 09/18/2019 Employment Answer Date Recorded Employment Unknown 09/18/2019 Purpose - Life Answer Date Recorded Purpose and direction in life Unknown Comments No Sex and Gender Information Value [...] have Coronavirus / COVID-19? No / Unsure 07/27/2022 3:24 PM EST documented as of this encounter Plan of Treatment Not on file documented as of this encounter Visit Diagnoses Diagnosis Compression fracture of L1 vertebra with routine healing, subsequent encounter documented in this encounter Care Teams Banding Machine Operator Relationship Specialty Start Date End Date Rudolph Peter MD PCP - General Family Medicine 09/21/24 documented as of this encounter
--- OUTSIDE RECORDS SUMMARY | 2025-02-13 10:46 | XMS_ITS | Encounter Summary ---
Author Organization [facility] Address [facility] [id number] [address] [place] [address] Care Team Providers Care Forklift Picker Name Role Phone Rudolph Peter MD Primary Care Provider [phone] Reason for Visit * Reason Comments Med Refill Encounter Details Date Type Department Care Team (Late st Contact Info) Description 04/10/2023 Refill [facility] - Family Medicine [address] [place] [address] Radha Ohara, CRYSTALIZER OPERATOR-GENERAL ROAD PRODUCTION MANAGER [address] [place] [address] Social History Tobacco Use Types Packs/Day Years [...] 11/19/2022 How often do you attend chur or druze services? More than 4 times per year 11/19/2022 Do you belong to any clubs o r organizations such as religion groups, unions, fraternal or athletic groups, or [...] Answer Date Recorded Total Score 16 04/01/2023 [facility] [place] of Occupat ional Health - Occupational Stress [...] Recorded Do you need help finding a [facility] career [facility] and/or a training program? No [...] documented as of this encounter Care Teams Forklift Picker Relationship Specialty Start Date End Date Rudolph Peter MD PCP - General Family Medicine 09/21/24 documented as of this encounter
--- OUTSIDE RECORDS SUMMARY | 2025-02-13 10:46 | XMS_ITS | Encounter Summary ---
Author [facility] Address [facility] [id number] [address] [place] [address] Care Team Providers Care Consulting Property Manager Name Role Phone Rudolph Peter MD Primary Care Provider [phone] Encounter Details Date Type Department Care Team (Late st Contact Info) Description 03/31/2023 [facility]phone [facility] [address] [place] [address] Mariya Nascimento CMA Social History Tobacco Use Types Packs/Day Years [...] often do you attend chur ch or islam services? More than 4 times per year 11/19/2022 Do you belong to any clubs o r organizations such as adventist groups, unions, fraternal or athletic groups, or [...] Answer Date Recorded Total Score 16 04/01/2023 [facility] of Occupat ional Health - Occupational Stress [...] Recorded Do you need help finding a [facility] career [facility] and/or a training program? [...] AM EST documented as of this encounter Miscellaneous Notes * Telephone Encounter - Mariya Nascimento CMA - 03/31/2023 8:48 AM EDT FYI- Pt has an appointment with you tomorrow for her controlled substance visit. We got an XR from ER, looks like she was at [facility] on March 29. I called Med records, and they will be sending over her ED Notes. * Telephone Encounter - Zen Viera DO - 03/31/2023 8:48 AM EDT Ok thanks documented in this encounter Plan of Treatment Not on file documented as of this encounter Visit Diagnoses Not on filedocumented in this encounter Additional Health Concerns Assessment Noted Time PHQ-9 Depression Total Score: 10 023 10:54 AM EDT documented as of this encounter Care Teams Consulting Property Manager Relationship Specialty Start Date End Date Rudolph Peter MD PCP - General Family Medicine 09/21/24 documented as of this encounter
--- OUTSIDE RECORDS SUMMARY | 2025-02-13 10:46 | XMS_ITS | Encounter Summary ---
Author [facility] Address [facility] [id number] [address] [place] [address] Care Team Providers Care Air Transport Professionals Name Role Phone Rudolph Peter MD Primary Care Provider [phone] Encounter Details Date Type Department Care Team (Late st Contact Info) Description 03/27/2024 [facility]phone [facility] [address] [place] [address] Faiza Lange, PETROLEUM GEOLOGY FACULTY MEMBER Social History Tobacco Use Types Packs/Day Years [...] often do you attend chur ch or jehovah's witness services? More than 4 times per year 11/19/2022 Do you belong to any clubs o r organizations such as taoism groups, unions, fraternal or athletic groups, or [...] Answer Date Recorded Total Score 17 03/26/2024 [facility] of Occupat ional Health - [...] Recorded Do you need help finding a [facility] career center and/or a training [...] encounter Miscellaneous Notes * Telephone Encounter - Faiza Lange CMA - 03/27/2024 7:59 AM EDT Did you orginally order a drug urine on this pt ? If so she came in and left a sample can you send an order ? * Telephone Encounter - Faiza Lange CMA - 03/27/2024 7:59 AM EDT Never mind I found it and printed it off documented in this encounter Plan of Treatment Not on file documented as of this encounter Visit Diagnoses Not on filedocumented in this encounter Additional Health Concerns Assessment Noted Time PHQ-9 Depression Total Score: 17 024 1:18 PM EDT documented as of this encounter Care Teams Air Transport Professionals Relationship Specialty Start Date End Date Rudolph Peter MD PCP - General Family Medicine 09/21/24 documented as of this encounter
--- OUTSIDE RECORDS SUMMARY | 2025-02-13 10:46 | XMS_ITS | Encounter Summary ---
Author Organization [facility] Address [address] [place] [address] Care Team Providers Care Policy Advisor Name Role Phone Rudolph Peter MD Primary Care Provider [phone] Encounter Details Date Type Department Care Team (Late st Contact Info) Description 01/01/2025 Abstract [facility] [address] [place] [phone] Rudolph Peter MD [address] [place] [id number] Social History Tobacco Use Types Packs/Day Years Used Date Smoking Tobacco: Former Cigarettes Smokeless Tobacco: Never Alcohol Use Standard Drinks/Week Comments Not Currently 0 (1 standard drink = 0.6 oz pur e alcohol) B1300 Health Literacy Answer Date Recor ded How often do you need to hav e someone help you when you read instructions, pamphlets, or other written material from your doctor or pharmacy? Never 09/12/2024 Social Connection and Isolat ion Panel [NHANES] Answer Date Recorded In a typical week, how many times do you talk on the phone with family, friends, or neighbors? More than three times a week 09/12/2024 How often do you get togethe r with friends or relatives? More than three times a week 09/12/2024 How often do you attend chur ch or jehovah's witness services? More than 4 times per year 09/12/2024 Do you belong to any clubs o r organizations such as latter-day groups, unions, fraternal or athletic groups, or school groups? No 09/12/2024 How often do you attend meet ings of the clubs or organizations you belong to? Patient declined 09/12/2024 Are you , , di vorced, , never , or living with a partner? 09/12/2024 AUDIT-C Answer Date Recorded Q1: How often do you have a drink containing alcohol? Never 09/12/2024 Q2: How many drinks containi ng alcohol do you have on a typical day when you are drinking? Patient does not drink Q3: How often do you have si x or more drinks on one occasion? Never 09/12/2024 Overall Financial Resource Strain (CARDIA) Answe r Date Recorded How hard is it for you to pa y for the very basics like food, housing, medical care, and heating? Not very hard 09/12/2024 [facility] [place] of Occupat ional Health - Occupational Stress Questionnaire Answer Date Recorded Do you feel stress - tense, restless, nervous, or anxious, or unable to sleep at night because your mind is troubled all the time - these days? To some extent 09/12/2024 Exercise Vital Sign Answer Date Recorde d On average, how many days pe r week do you engage in moderate to strenuous exercise (like a brisk walk)? 0 days 09/12/2024 On average, how many minutes do you engage in exercise at this level? 0 min 09/12/2024 Hunger Vital Sign Answer Date Recorded Within the past 12 months, y ou worried that your food would run out before you got the money to buy more. Sometimes true Within the past 12 months, t he food you bought just didn't last and you didn't have money to get more. Never true 04/2025 PRAPARE - Transportation Answer Date Re corded In the past 12 months, has l ack of transportation kept you from medical appointments or from getting medications? Yes 04/2025 In the past 12 months, has l ack of transportation kept you from meetings, work, or from getting things needed for daily living? Yes 09/12/2024 Housing Stability Vital Sign Answer Iftikhar e Recorded In the last 12 months, was t here a time when you were not able to pay the mortgage or rent on time? No 09/12/2024 In the past 12 months, how m any times have you moved where you were living? 0 09/12/2024 At any time in the past 12 m [facility], were you homeless or living in a fci (including now)? No 09/12/2024 Comments Unknown Sex and Gender Information Value Date Recorded Sex Assigned at Not on file Legal Sex Female 11:21 PM EDT Gender Identity Not on file Sexual Orientation Straight 05/04/2023 9: 27 AM EDT documented as of this encounter Plan of Treatment Upcoming Encounters Date Type Department Care Team (Late st Contact Info) Description 03/14/2025 1:30 PM EDT Office Visit [facility] [address] [place] [address] Rudolph Peter MD [address] [place] [phone] 04/01/2025 2:10 PM EDT Office Visit [facility] [address] [place] [address] Zeyad Tate MD [address] [place] [address] documented as of this encounter Visit Diagnoses Not on filedocumented in this encounter Care Teams Policy Advisor Relationship Specialty Start Date End Date Rudolph Peter MD [address] [place] [phone] PCP - General Family Medicine 09/19/24 documented as of this encounter
--- OUTSIDE RECORDS SUMMARY | 2025-02-13 10:46 | XMS_ITS | Clinical Summary ---
Author Organization [facility] Address [address] [place] [address] Care Team Providers Care Land Leasing Information Clerk Name Role Phone Rudolph Peter MD Primary Care Provider [phone] Allergies Active Allergy Reactions Criticality Noted Date Comments Adhesive Other High 06/03/2021 BLISTERS (IF ON FOR TOO LONG) Bee Pollen Other 01/30/2020 Bee Venom Protein (Honey Bee) Shortness of breath High 06/03/2021 Other reaction(s): TROUBLE BREATHING Other reaction(s): TROUBLE BREATHING Cilostazol Unknown 01/30/2020 Codeine Other 01/30/2020 Other Reaction(s): GETS HYPERACTIVE Icosapent Ethyl Dizziness 02/11/2022 Lisinopril Other,Rash Low 01/30/2020 Other Reaction(s): LOW BLOOD PRESSURE Red face Morphine Other 01/30/2020 Other Reaction(s): PASS OUT Medications atenolol (Tenormin) 50 mg tablet Take 1 tablet by mouth in the morning. Active celecoxib (CeleBREX) 200 mg capsule take 1 capsule by mouth twice a day every morning and BEFORE BEDTIME 4 Active DULoxetine (Cymbalta) [address] capsule take 1 capsule by mouth once daily ALONG WITH A 60 MG TABLET 4 Active DULoxetine (Cymbalta) [address] capsule take 1 capsule by mouth once daily ALONG WITH 30MG CAPSULE 4 Active nitroglycerin (Nitrostat) 0.4 mg SL tablet 1 sublingually Q5 minutes prn chest pain 3 Active atorvastatin (Lipitor) 80 mg tablet Take 1 tablet by mouth in the morning. Active methocarbamol (Robaxin) 500 mg tabletIndicati ons:Type I or II open fracture of right tibia and fibula, initial encounter,Frac ture of shaft of tibia and fibula, closed, left, initial encounter,Fall , initial encounter Take 1 tablet (500 mg) by mouth three times daily. 90 tablet 4 Active acetaminophen (Tylenol 8 Hour) 650 mg ER tablet Take 650 mg by mouth every 8 (eight) hours if needed for mild pain (1-3 pain score). Do not crush, chew, or split. Active vitamin D3-folic acid 2,500 unit- 1 mg tablet Take 2 capsules by mouth in the morning. Active docusate sodium (Colace) 100 mg capsule Take 100 mg by mouth two times daily. Active enoxaparin (Lovenox) 40 mg/0.4 mL syringe Inject 40 mg under the skin in the morning. Active gabapentin (Neurontin) 100 mg capsule Take 100 mg by mouth three times daily. Active ibuprofen 400 mg tablet Take 400 mg by mouth every 6 (six) hours if needed for moderate pain (4-7 pain score). Active lactulose 10 gram/15 mL solution Take 20 g by mouth three times daily. Active levothyroxine (Synthroid, Levoxyl) 75 mcg tablet Take 75 mcg by mouth before breakfast. Active lidocaine (Lidoderm) 5 % patch Apply 1 patch topically in the morning. Remove & discard patch within 12 hours or as directed by MD. Active loperamide (Imodium A-D) 2 mg tablet Take 2 mg by mouth if needed in the morning, at noon, in the evening, and at bedtime for diarrhea. Active melatonin 3 mg capsule Take by mouth. Activ e polyethylene glycol (Glycolax) oral powder Take 17 g by mouth in the morning. Active sennosides (Senokot) 8.6 mg tablet Take 1 tablet by mouth in the morning. Active cyclobenzaprin e (Flexeril) 10 mg tablet 10 mg if needed in the morning, at noon, and at bedtime for muscle spasms. 4 Active hydroxychloroq uine (Plaquenil) 200 mg tablet Take 200 mg by mouth twice a day. 5 Active NovoLOG U-100 Insulin aspart 100 unit/mL injection vial INJECT 50 UNITS SUBCUTANEOUSLY (UNDER THE SKIN) DAILY Active methotrexate 2.5 mg tablet 4 tabs PO once a week 5 Active HYDROcodone-ac etaminophen ([place]) 5-325 mg tablet Take 1 tablet by mouth every 4 (four) hours if needed for severe pain (8-10 pain score). Active aspirin 81 mg EC tablet Take 81 mg by mouth in the morning. 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 07/18/2024 Presence of insulin pump (external) (internal) 1 09/17/2023 Type 1 diabetes mellitus wit h other circulatory complications 07/18/2024 Vitamin D deficiency, unspecified 07/18/2024 Fall 04/22/2024 Type I or II open fracture o f right tibia and fibula, initial encounter 04/22/2024 Type I or II open fracture of right tibia and fi bula 04/21/2024 Fracture of shaft of tibia a nd fibula, closed, left, initial encounter 04/21/2024 Diabetic polyneuropathy asso ciated with type 1 diabetes mellitus 12/05/2023 Status post partial amputation of left foot 09/2023 Overweight 04/01/2023 Urge incontinence of urine 04/01/2023 PAD (peripheral artery disease) 11/19/2022 History of cholecystectomy 05/21/2022 History of coronary artery bypass surgery 2021 Localized, primary osteoarthritis of hand 2021 Sarcoidosis 05/21/2022 History of coronary artery stent placement 05/21 Hypertriglyceridemia 11/04/2020 Compression fracture of lumbar vertebra 09/29/19 21 Pneumonia 09/04/2020 Postural orthostatic tachycardia syndrome 2019 Gastroesophageal reflux disease 08/18/2019 Coronary arteriosclerosis 08/16/2019 Hypertension 08/16/2019 Migraine 08/16/2019 Panic attack 08/16/2019 Primary fibromyalgia syndrome 08/16/2019 Rheumatoid arthritis 08/16/2019 Severe depression 08/16/2019 Resolved Problems Problem Noted Date Diagnosed Date Resolved Date Acute coronary syndrome 05/21/2022 08/2 12/2023 Deep vein thrombosis (DVT) 08/16/2019 0 04/28/2024 Encounters Date Type Department Care Team Description 11/30/2024 9:15 AM EDT Office Visit [facility] [address] [place] [address] Berny Carter MD Preop cardiovascular exam (Primary Dx); Shortness of breath; Coronary artery disease involving [place] coronary artery of [place] heart without angina pectoris; POTS (postural orthostatic tachycardia syndrome); History of coronary artery bypass surgery from Last 3 Months Immunizations Immunization Administration Dates Next Due Influenza, injectable, quadr ivalent, preservative free 07/12/2023,08/05/2022,05/21/2021,2019,06/08/2019 Pneumococcal Conjugate PCV 13 06/11/2020 Family History Medical History Relation Name Comments Broken bones Father Ilana Marquez Coronary artery disease Father Ilana Marquez Stroke Father Ilana Marquez Anesthesia problems Mother Nina Mcintyre Broken bones Mother Nina Mcintyre Osteoporosis Mother Nina Mcintyre Relation Name Status Comments Father Ilana Marquez Mother Nina Mcintyre Social History Tobacco Use Types Packs/Day Years Used Date Smoking Tobacco: Former Cigarettes 1.5 15 Smokeless Tobacco: Never Tobacco Cessation:Counseling Given: Not Answered Alcohol Use Standard Drinks/Week Comments Never 0 (1 standard drink = 0.6 oz pur e alcohol) [facility] Utilities Answer Date Recorded In the past 12 months has e [employer], gas, oil, or water [employer] threatened to shut off services in your home? No 05/14/2024 Humiliation, Afraid, Rape, and Kick questionnair e Answer Date Recorded Within the last year, have y ou been afraid of your partner or ex-partner? No 07/09/2024 Emotionally Abused Not on file 07/09/2024 Physically Abused Not on file 07/09/2024 Sexually Abused Not on file 07/09/2024 Overall Financial Resource Strain (CARDIA) Answe r Date Recorded How hard is it for you to pa y for the very basics like food, housing, medical care, and heating? Not hard at all 05/14/2024 PHQ-2 Answer Date Recorded Patient Health Questionnaire-2 Score 0 08/13/2024 Transportation Answer Date Recorded In the past 12 months, has l ack of transportation kept you from medical appointments or from getting medications? No 05/14/2024 Lack of Transportation (Non-Medical) Not on file 05/14/2024 Housing Stability Vital Sign Answer Iftikhar e Recorded Unable to Pay for Housing in the Last Year Not o n file 05/14/2024 Number of Places Lived in the Last Year Not on f ile 05/14/2024 In the last 12 months, was t here a time when you did not have a steady place to sleep or slept in a group home (including now)? No 05/14/2024 Hunger Vital Sign Answer Date Recorded Within the past 12 months, y ou worried that your food would run out before you got the money to buy more. Never true 05/14/20 24 Ran Out of Food in the Last Year Not on file 05/14/2024 Comments No Sex and Gender Information Value Date Recorded Sex Assigned at Female 08/13/2024 12:53 PM EST Legal Sex Female 12:29 AM EDT Gender Identity Female 08/13/2024 12:53 PM EST Sexual Orientation Heterosexual or Straight 11/2024 9:04 AM EST Last Filed Vital Signs Vital Sign Reading Time Taken Comments Blood Pressure 108/68 11/30/2024 8:50 AM EDT Pulse 83 11/30/2024 8:50 AM EDT Temperature 36.8 C (98.2 F) 05/01/2024 6:12 AM EDT Respiratory Rate 16 05/01/2024 6:12 AM EDT Oxygen Saturation 95% 11/30/2024 8:50 AM EDT Inhaled Oxygen Concentration - - Weight 77.1 kg (170 lb) 11/30/2024 8:50 AM EDT Height 170.2 cm (5' 7 ) 11/30/2024 8:50 AM EDT Body Mass Index 26.63 11/30/2024 8:50 AM EDT Plan of Treatment Upcoming Encounters Date Type Department Care Team (Late st Contact Info) Description 02/20/2025 2:00 PM EDT Follow-Up [facility] [address] [place] [address] [place] [address] Christian Shipman MD [address] [place] [address] 02/25/2025 2:00 PM EDT Office Visit [facility] [address] [place] [address] Berny Carter MD [address] [facility] [address] [facility] [place] [address] Health Maintenance Due Date Last Done Comments CT Colonography 1959 Colonoscopy 1959 Colorectal Cancer Screening 1959 FIT-DNA 1959 FIT 1959 FOBT 1959 Medicare Annual Wellness (AWV) 1959 Medicare Initial Physical (IPPE) 1959 Sigmoidoscopy 1959 Diabetes: Retinopathy Screening 12/20/1969 Pap Smear 12/20/1980 Cervical Cancer Screening 12/20/1989 HPV/Cotest 12/20/1989 Mammogram 1999 Zoster Vaccines (1 of 2) 12/20/2009 Diabetes: Hemoglobin A1C 09/30/2020 06/30/2020 COVID-19 Vaccine ( season) 2024 09/01/2021, 11/27/2020, 11/06/2020, Additional history exists Fall Risk Screening 12/20/2024 08/13/2024 Diabetes: Urine Protein Screening 03/27/2025 03/27/2024 Influenza Vaccine (Season Ended) 2025 07/12/2023, 08/05/2022, 05/21/2021, Additional history exists Pneumococcal Vaccine: 50+ Years (3 of 3 - PCV20 or PCV21) 06/11/2025 06/11/2020, 06/05/2020, 05/20/2020 Depression Screening 08/13/2025 08/13/2024 Adult Tetanus 09/17/2029 09/17/2019 HIB Vaccines Aged Out No longer eligi ble based on patient's age to complete this topic HPV Vaccines Aged Out No longer eligi ble based on patient's age to complete this topic IPV Vaccines Aged Out No longer eligi ble based on patient's age to complete this topic Meningococcal B Vaccine Aged Out No l onger eligible based on patient's age to complete this topic Meningococcal Vaccine Aged Out No elizabeth kimberlee eligible based on patient's age to complete this topic Rotavirus Vaccines Aged Out No longer eligible based on patient's age to complete this topic Medical Devices Implanted Type Area Dry Cleaner Hand Device Identifier Shelf Expiration Date Model / Serial / Lot T2 Alpha Tibia Implanted:Qty: 1 on 04/22/2024 by Christian Shipman MD at [facility] Nail Right: Tibia [facility] [employer] [id number] 09/04/2033 [id number] S / / [id number] T2 Alpha Nail Implanted:Qty: 1 on 04/22/2024 by Christian Shipman MD at [facility] Nail Left: Tibia [facility] [id number] 12/03/2032 3352-7552 S / / [id number] Imn Screws Advanced Locking Screw Implanted:Qty: 1 on 04/22/2024 by Christian Shipman MD at [facility] Screw Right: Tibia [employer] [id number] 07/05/2032 0529-2365 S / / [id number] Imn Screws Advanced Locking Screw Implanted:Qty: 1 on 04/22/2024 by Christian Shipman MD at [facility] Screw Left: Tibia [facility] [id number] 12/03/2032 7855-8787 S / / [id number] Imn Screws Advanced Locking Screw Implanted:Qty: 1 on 04/22/2024 by Christian Shipman MD at [facility] Screw Right: Tibia [facility] [id number] 02/02/2034 3338-8896 S / / [id number] Imn Screws Advanced Locking Screw Implanted:Qty: 1 on 04/22/2024 by Christian Shipman MD at [facility] Screw Right: Tibia [facility] [id number] 03/04/2033 4976-3804 S / / [id number] Imn Screws Advanced Locking Screw Implanted:Qty: 1 on 04/22/2024 by Christian Shipman MD at [facility] Screw Left: Tibia [facility] [id number] 11/02/2032 3161-9573 S / / [id number] Imn Screws Advanced Locking Screw Implanted:Qty: 1 on 04/22/2024 by Christian Shipman MD at [facility] Screw Right: Tibia [facility] [id number] 11/02/2032 2562-6180 S / / [id number] Imn Screws Advanced Locking Screw Implanted:Qty: 1 on 04/22/2024 by Christian Shipman MD at [facility] Screw Left: Tibia [facility] [id number] 10/05/2032 7198-2296 S / / [id number] Imn Screws Advanced Locking Screw Implanted:Qty: 1 on 04/22/2024 by Christian Shipman MD at [facility] Screw Right: Tibia [facility] [id number] 01/02/2033 2888-3492 S / / [id number] Imn Screws Advanced Locking Screw Implanted:Qty: 1 on 04/22/2024 by Christian Shipman MD at [facility] Screw Right: Tibia [facility] [id number] 07/05/2032 4065-1631 S / / [id number] Alpha Tibial System End Cap Tibia Implanted:Qty: 1 on 04/22/2024 by Christian Shipman MD at [facility] Right: Tibia [facility] [id number] 08/04/2032 6471-3243 S / / [id number] T2 Alpha Tibia End Cap Tibia Implanted:Qty: 1 on 04/22/2024 by Christian Shipman MD at [facility] Left: Tibia [facility] [id number] 02/02/2033 3034-7026 S / / [id number] Procedures Procedure Name Priority Date/Time Associated Diagnosis Comments ECG 12 LEAD UNIT PERFORMED Routine 11/30/2024 8:50 AM EDT Preop cardiovascular exam HEMOGLOBIN A1C Routine 06/30/2020 11:36 AM EDT from Last 3 Months or Most Recently Relevant to Health Maintenance Results * ECG 12 lead unit performed (11/30/2024 8:50 AM EDT) Berny Carter MD ECG ORDERABLES Final Result * (ABNORMAL) Hemoglobin A1c (06/30/2020 11:36 AM EDT) Hemoglobin A1C 8.6(H) 4.0 - 6.0 % LAB CONVERSIONS Estimated Average Glucose 200 mmol/L LAB CONVERSIONS 06/30/2020 11:3 6 AM EDT 06/30/2020 6:28 PM EDT Narrative LAB CONVERSIONS - 07/01/2020 10:26 AM EDT Yes: Add to Previous draw if able us Generic Provider Conversion LAB BLOOD ORDERABLES Final Result LAB CONVERSIONS from Last 3 Months or Most Recently Relevant to Health Maintenance Insurance MEDICAID [place] [employer] MEDICARE ADVANTAGE Advance Directives * Full Code (Latest Code Status on File) Date Activated Date Inactivated Comments 04/22/2024 3:26 AM 05/01/2024 5:35 PM Care Teams Land Leasing Information Clerk Relationship Specialty Start Date End Date Rudolph Peter MD [address] [place] [address] PCP - General Family Medicine 11/23/24
--- OUTSIDE RECORDS SUMMARY | 2025-02-13 10:46 | XMS_ITS | Encounter Summary ---
Author Organization [facility] Address [id number] [address] [place] [address] Care Team Providers Care Smelter Operator Name Role Phone Rudolph Peter MD Primary Care Provider [phone] Encounter Details Date Type Department Care Team (Late st Contact Info) Description 08/09/2022 Orders Only [facility] - Family Medicine [address] [place] [address] Zen Viera, DO [address] [place] [address] Social History Tobacco Use Types Packs/Day Years [...] Name Priority Date/Time Associated Diagnosis Comments ECG 12-LEAD Routine 08/09/2022 documented in this encounter Results * ECG 12 lead (08/09/2022) us Zen Viera DO ECG ORDERABLES Final Result MANUALLY TRANSCRIBED RESULTS documented in this encounter Visit Diagnoses Not on filedocumented in this encounter Care Teams Smelter Operator Relationship Specialty Start Date End Date Rudolph Peter MD PCP - General Family Medicine 09/21/24 documented as of this encounter
--- OUTSIDE RECORDS SUMMARY | 2025-02-13 10:46 | XMS_ITS | Encounter Summary ---
Author Organization [facility] Address [address] [place] [address] Care Team Providers Care Stone Hand Name Role Phone Rudolph Peter MD Primary Care Provider [phone] Encounter Details Date Type Department Care Team (Late st Contact Info) Description 11/20/2024 [facility] Only [facility] [address] [place] [phone] Rudolph Peter MD [address] [place] [address] Social History Tobacco Use Types Packs/Day Years [...] often do you attend chur ch or orthodoxy services? More than 4 times per year 09/12/2024 Do you belong to any clubs o r organizations such as sabianism groups, unions, fraternal [...] care, and heating? Not very hard 09/12/2024 [facility] [place] of Occupat ional Health - Occupational Stress [...] any time in the past 12 m [facility], were you homeless or living in a senior care (including now)? No 09/12/2024 Comments Unknown Sex [...] 03/14/2025 1:30 PM EDT Office Visit [facility] [address] [place] [address] Rudolph Peter MD [address] [place] [address] 04/01/2025 2:10 PM EDT Office Visit [facility] [address] [place] [address] Zeyad Tate MD [address] [place] [address] documented as of this encounter Procedures Procedure Name Priority Date/Time Associated Diagnosis Comments XR BONE SURVEY LIMITED Routine 11/20/2024 11:55 AM EDT XR CHEST 2 VIEWS Routine 11/20/2024 8:54 AM EDT documented in this encounter Results * XR bone survey limited (11/20/2024 11:55 AM EDT) Anatomical Region Laterality Modality Body, Upper Extremities, Low er Extremities, Spine, Head, Neck Radiographic Imaging us Rudolph Peter MD IMG XR PROCEDURES Final Result * XR chest 2 views (11/20/2024 8:54 AM EDT) Anatomical Region Laterality Modality Chest Radiographic Caro ging us Rudolph Peter MD IMG XR PROCEDURES Final Result documented in this encounter Visit Diagnoses Not on filedocumented in this encounter Care Teams Stone Hand Relationship Specialty Start Date End Date Rudolph Peter MD [address] [place] [phone] PCP - General Family Medicine 09/19/24 documented as of this encounter
--- OUTSIDE RECORDS SUMMARY | 2025-02-13 10:46 | XMS_ITS | Encounter Summary ---
Author Organization [facility] Sys [facility] Address [facility][id number] [address] [place] [address] Care Team Providers Care Wallpaperer Helper Name Role Phone Rudolph Peter MD Primary Care Provider [phone] Encounter Details Date Type Department Care Team (Late st Contact Info) Description 09/13/2022 Telephone [facility] [address] [place] [address] Katelynn Jean CMA Social History Tobacco Use Types Packs/Day [...] of Binge Drinking Not on file 01/04 PHQ-2 Answer Date Recorded Total Score 14 08/19/2022 Childcare Answer Date Recorded Childcare Unknown 09/18/2019 [...] have Coronavirus / COVID-19? No / Unsure 08/19/2022 1:51 PM EST documented as of this encounter Plan of Treatment Not on file documented as of this encounter Visit Diagnoses Not on filedocumented in this encounter Additional Health Concerns Assessment Noted Time PHQ-9 Depression Total Score: 14 022 2:07 PM EST documented as of this encounter Care Teams Wallpaperer Helper Relationship Specialty Start Date End Date Rudolph Peter MD PCP - General Family Medicine 09/21/24 documented as of this encounter
--- OUTSIDE RECORDS SUMMARY | 2025-02-13 10:46 | XMS_ITS | Encounter Summary ---
Author Organization [facility] Address [address] [place] [address] Care Team Providers Care Button Puncher Name Role Phone Zeyad Tate MD Primary Care Provider [phone] Zen Viera MD Primary Care Provider [phone] Rudolph Peter MD Primary Care Provider [phone] Encounter Details Date Type Department Care Team (Late Contact Info) Description 07/17/2024 Abstract [facility] [address] [place] [address] Zeyad Tate MD [address] [place] [address] Social History Tobacco Use Types Packs/Day Years [...] 03/14/2025 1:30 PM EDT Office Visit [facility] [address] [place] [address] Rudolph Peter MD [address] [place] [address] 04/01/2025 2:10 PM EDT Office Visit [facility] [address] [place] [address] Zeyad Tate MD [address] [place] [address] documented as of this encounter Visit Diagnoses Not on filedocumented in this encounter Care Teams Button Puncher Relationship Specialty Start Date End Date Zeyad Tate MD [address] [place] [address] PCP - General Endocrinology 06/06/23 08/13/24 Zen Viera MD [address] [place] [address] PCP - General Family Medicine 08/14/24 09/18/24 Rudolph Peter MD [address] [place] [address] PCP - General Family Medicine 09/19/24 documented as of this encounter
--- OUTSIDE RECORDS SUMMARY | 2025-02-13 10:46 | XMS_ITS | Referral Summary ---
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 Active aspirin 81 mg EC tablet Take 81 mg by mouth in the morning. 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 07/18/2024 Presence [...] Deep vein thrombosis (DVT) 08/16/2019 0 04/28/2024 Immunizations Immunization Administration Dates Next Due Influenza, injectable, quadr ivalent, preservative free 07/12/2023,08/05/2022,05/21/2021,2019,06/08/2019 Pneumococcal Conjugate PCV 13 06/11/2020 Social History Tobacco Use Types Packs/Day Years Used Date Smoking Tobacco: Former Cigarettes 1.5 15 Smokeless Tobacco: Never Tobacco Cessation:Counseling Given: Not Answered Alcohol Use Standard Drinks/Week Comments Never 0 (1 standard drink = 0.6 oz pur e alcohol) [facility] Utilities Answer Date Recorded In the past 12 months has th e electric, gas, oil, or water company threatened to shut off services in your [...] place to sleep or slept in a mcfp (including now)? No 05/14/2024 Hunger Vital Sign [...] Info) Description 02/20/2025 2:00 PM EDT Follow-Up [facility] [address] [place] [address] [place] [address] Christian Shipman MD [address] [place] [address] [place] [address] 02/25/2025 2:00 PM EDT Office Visit [facility] [address] [place] [address] Berny Carter MD [address] [place] [address] Medical Devices Implanted Type Area Adoption Manager Device Identifier Shelf Expiration Date Model / Serial / Lot T2 Alpha Tibia Implanted:Qty: 1 on 04/22/2024 by Christian Shipman MD at [facility] Nail Right: Tibia [employer] [id number] 09/04/2033 2601-0277 S / / [id number] T2 Alpha Nail Implanted:Qty: 1 on 04/22/2024 by Christian Shipman MD at [facility] Nail Left: Tibia [employer] [id number] 12/03/2032 8625-6582 S / / [id number] Imn Screws Advanced Locking Screw Implanted:Qty: 1 on 04/22/2024 by Christian Shipman MD at [facility] Screw Right: Tibia [employer] [id number] 07/05/2032 0271-9946 S / / [id number] Imn Screws Advanced Locking Screw Implanted:Qty: 1 on 04/22/2024 by Christian Shipman MD at [facility] Screw Left: [employer]ia [employer] [id number] 12/03/2032 7946-1986 S / / [id number] Imn Screws Advanced Locking Screw Implanted:Qty: 1 on 04/22/2024 by Christian Shipman MD at [facility] Screw Right: Tibia [employer] [id number] 02/02/2034 5301-2428 S / / [id number] Imn Screws Advanced Locking Screw Implanted:Qty: 1 on 04/22/2024 by Christian Shipman MD at [facility] Screw Right: [employer]ia [employer] [id number] 03/04/2033 0343-9427 S / / [id number] Imn Screws Advanced Locking Screw Implanted:Qty: 1 on 04/22/2024 by Christian Shipman MD at [facility] Screw Left: [employer]ia [employer] [id number] 11/02/2032 7927-8314 S / / [id number] Imn Screws Advanced Locking Screw Implanted:Qty: 1 on 04/22/2024 by Christian Shipman MD at [facility] Screw Right: [employer] [id number] 11/02/2032 3452-5954 S / / [id number] Imn Screws Advanced Locking Screw Implanted:Qty: 1 on 04/22/2024 by Christian Shipman MD at [facility] Screw Left: Tibia [employer] [id number] 10/05/2032 0151-8927 S / / [id number] Imn Screws Advanced Locking Screw Implanted:Qty: 1 on 04/22/2024 by Christian Shipman MD at [facility] Screw Right: Tibia [employer] [id number] 01/02/2033 8674-4921 S / / [id number] Imn Screws Advanced Locking Screw Implanted:Qty: 1 on 04/22/2024 by Christian Shipman MD at [facility] Screw Right: Tibia [employer] [id number] 07/05/2032 0380-6068 S / / [id number] T2 Alpha Tibial System End Cap Tibia Implanted:Qty: 1 on 04/22/2024 by Christian Shipman MD at [facility] Right: Tibia [employer] [id number] 08/04/2032 5282-7060 S / / [id number] Alpha Tibia End Cap Tibia Implanted:Qty: 1 on 04/22/2024 by Christian Shipman MD at [facility] Left: Tibia [employer] [id number] 02/02/2033 0334-4035 S / / [id number] Procedures Procedure Name Priority Date/Time Associated Diagnosis [...] Yes: Add to Previous draw if able Generic Provider Conversion LAB BLOOD ORDERABLES Final Result LAB CONVERSIONS from Last 3 Months or Most Recently Relevant to Health Maintenance Insurance [place]ICAID [place] [employer] MEDICARE ADVANTAGE Advance Directives * Full Code (Latest Code Status on File) Date Activated Date Inactivated Comments 04/22/2024 3:26 AM 05/01/2024 5:35 PM Care Teams Network Operations Analyst Relationship Specialty Start Date End Date Rudolph Peter MD [address] [place] [address] PCP - General Family Medicine 11/23/24
--- OUTSIDE RECORDS SUMMARY | 2025-02-13 10:46 | XMS_ITS | Encounter Summary ---
Author Organization [facility] Sys [facility] Address [id number] [address] [place] [address] Care Team Providers Care Test Borer Helper Name Role Phone Rudolph Peter MD Primary Care Provider [phone] Encounter Details Date Type Department Care Team (Late st Contact Info) Description 03/03/2023 Orders Only [facility] - Family Medicine [address] [place] [address] Zen Viera, DO [address], [place] [address] Social History Tobacco Use Types Packs/Day Years [...] any clubs o r organizations such as gnosticism groups, unions, fraternal or athletic groups, or [...] 11/19/2022 PHQ-2 Answer Date Recorded Total Score 10 12/27/2022 [facility] of Occupat ional Health - [...] documented as of this encounter Care Teams Test Borer Helper Relationship Specialty Start Date End Date Rudolph Peter MD PCP - General Family Medicine 09/21/24 documented as of this encounter
--- OUTSIDE RECORDS SUMMARY | 2025-02-13 10:46 | XMS_ITS | Encounter Summary ---
Author Organization [employer] [facility] Address [facility][id number] [address] [place] [address] Care Team Providers Care Hopper Feeder Name Role Phone Rudolph Peter MD Primary Care Provider [phone] Encounter Details Date Type Department Care Team (Late st Contact Info) Description 08/25/2022 Telephone [facility] [address] [facility] [address] [place] [address] Katelynn Jean, [place] Social History Tobacco Use Types Packs/Day Years [...] documented as of this encounter Care Teams Hopper Feeder Relationship Specialty Start Date End Date Rudolph Peter MD PCP - General Family Medicine 09/21/24 documented as of this encounter
--- OUTSIDE RECORDS SUMMARY | 2025-02-13 10:46 | XMS_ITS | Encounter Summary ---
Author Organization [facility] Address [id number] [address] [place] [address] Care Team Providers Care Infrastructure Software Engineer Name Role Phone Rudolph Peter MD Primary Care Provider [phone] Reason for Visit * Reason Comments Med Refill Encounter Details Date Type Department Care Team (Late st Contact Info) Description 07/27/2022 Refill [facility] - Family Medicine [address] [place] [address] Zen Viera, DO [address] [facility], [place] [address] Social History Tobacco Use Types Packs/Day Years [...] on filedocumented in this encounter Care Teams Infrastructure Software Engineer Relationship Specialty Start Date End Date Rudolph Peter MD PCP - General Family Medicine 09/21/24 documented as of this encounter
--- OUTSIDE RECORDS SUMMARY | 2025-02-13 10:46 | XMS_ITS | Encounter Summary ---
Author Organization [facility] Address [id number] [address] [place] [address] Care Team Providers Care Kennel Operator Name Role Phone Rudolph Peter MD Primary Care Provider [phone] Encounter Details Date Type Department Care Team (Late st Contact Info) Description 11/27/2024 [facility]phone [facility] [address] [place] [address] Kailee Mays CMA Social History Tobacco Use Types Packs/Day [...] often do you attend chur ch or adventist services? More than 4 times per year 11/19/2022 Do you belong to any clubs o r organizations such as confucianism groups, unions, fraternal or athletic groups, or [...] 12/03/2023 PHQ-2 Answer Date Recorded Total Score 16 04/13/2024 [facility] of Occupat ional Health - Occupational Stress [...] Recorded Do you need help finding a [facility] career center and/or a training program? No 11/19/2022 Hunger Screening Answer Date Recorded Within the past 12 months we worried whether our food would run out before we got money to buy more. Never True 04/13/2024 Within the past 12 months th e food we bought just didn't last and we didn't have money to get more. Never True 04/13/2024 Purpose - Life Answer Date Recorded I [...] encounter Miscellaneous Notes * Telephone Encounter - Kailee Mays CMA - 11/27/2024 12:46 PM EDT Nadia called stated since started the plaquenil she been having more pain than usually. Also this medication is upsetting her stomach. Please advise. Thanks * Telephone Encounter - Belgica Saba MD - 11/27/2024 12:46 PM EDT She can stop hydroxychloroquine for a week time to see if the pain will go away * Telephone Encounter - Kailee Mays CMA - 11/27/2024 12:46 PM EDT Pt notified. documented in this encounter Plan of Treatment Not on file documented as of this encounter Visit Diagnoses Not on filedocumented in this encounter Additional Health Concerns Assessment Noted Time PHQ-9 Depression Total Score: 16 024 11:42 AM EDT documented as of this encounter Care Teams Kennel Operator Relationship Specialty Start Date End Date Rudolph Peter MD PCP - General Family Medicine 09/21/24 documented as of this encounter
--- OUTSIDE RECORDS SUMMARY | 2025-02-13 10:46 | XMS_ITS | Encounter Summary ---
Author Organization [facility] Address [address] [place] [address] Care Team Providers Care Jewelry Department Supervisor Name Role Phone Rudolph Peter MD Primary Care Provider [phone] Encounter Details Date Type Department Care Team (Late st Contact Info) Description 12/17/2024 Abstract [facility] [address] [place] [address] Rudolph Peter MD [address] [place] [address] Social History Tobacco Use Types Packs/Day Years [...] often do you attend chur ch or christianity services? More than 4 times per year [...] care, and heating? Not very hard 09/12/2024 [facility] of Occupat ional Health - Occupational Stress [...] any time in the past 12 m [facility], were you homeless or living in [...] Visit [facility] [address] [place] [address] Rudolph Peter MD [address] [place] [address] 04/01/2025 2:10 PM EDT Office Visit [facility] [address] [place] [address] Zeyad Tate MD [address] [place] [address] documented as of this encounter Visit Diagnoses Not on filedocumented in this encounter Care Teams Jewelry Department Supervisor Relationship Specialty Start Date End Date Rudolph Peter MD [address] [place] [address] PCP - General Family Medicine 09/19/24 documented as of this encounter
--- OUTSIDE RECORDS SUMMARY | 2025-02-13 10:46 | XMS_ITS | Encounter Summary ---
Author Organization [facility] Sys tem Address [id number] [address] [place] [address] Care Team Providers Care Crime Scene Evidence Technician Name Role Phone Rudolph Peter MD Primary Care Provider [phone] Encounter Details Date Type Department Care Team (Late st Contact Info) Description 02/07/2023 Orders Only [facility] - Family Medicine [address] [place] [address] External, Scanning Provider Social History Tobacco Use [...] often do you attend chur ch or moravian services? More than 4 times per year 11/19/2022 Do you belong to any clubs o r organizations such as sikhism groups, unions, fraternal or athletic groups, or [...] Answer Date Recorded Total Score 10 12/27/2022 [facility] of Occupat ional Health - Occupational Stress [...] Recorded Do you need help finding a [facility] and/or a training program? [...] Name Priority Date/Time Associated Diagnosis Comments XR CHEST 1 VW Routine 02/07/2023 ECG 12-LEAD Routine 02/07/2023 documented in this encounter Results * X-ray chest 1 view (02/07/2023) Anatomical Region Laterality Modality Body, Chest N/A Computed Radiogr aphy us Scanning Provider External IMG DIAGNOSTIC IMAGIN G ORDERABLES Final Result * ECG 12 lead (02/07/2023) us Zen Viera DO ECG ORDERABLES Final Result MANUALLY TRANSCRIBED RESULTS documented in this encounter Visit Diagnoses Not on filedocumented in this encounter Additional Health Concerns Assessment Noted Time PHQ-9 Depression Total Score: 10 023 10:54 AM EDT documented as of this encounter Care Teams Crime Scene Evidence Technician Relationship Specialty Start Date End Date Rudolph Peter MD PCP - General Family Medicine 09/21/24 documented as of this encounter
--- OUTSIDE RECORDS SUMMARY | 2025-02-13 10:46 | XMS_ITS | Encounter Summary ---
Author Organization [facility] Sys tem Address [facility]-[id number] [address] [place] [address] Care Team Providers Care Combat Information Center Officer Name Role Phone Rudolph Peter MD Primary Care Provider [phone] Reason for Visit * Reason Onset Date Comments Med Refill 08/24/2022 Encounter Details Date Type Department Care Team (Late st Contact Info) Description 08/24/2022 Refill [facility] - Family Medicine [address] [place] [address] Zen Viera, DO [address] [facility], [place] [address] Compression fracture of L1 vertebra with routine [...] documented as of this encounter Care Teams Combat Information Center Officer Relationship Specialty Start Date End Date Rudolph Peter MD PCP - General Family Medicine 09/21/24 documented as of this encounter
--- OUTSIDE RECORDS SUMMARY | 2025-02-13 10:46 | XMS_ITS | Encounter Summary ---
Author Organization [facility] Sys tem Address [id number] [address] [place] [address] Care Team Providers Care Pollution Control Chemist Name Role Phone Rudolph Peter MD Primary Care Provider [phone] Encounter Details Date Type Department Care Team (Late st Contact Info) Description 02/08/2024 Orders Only [facility] - Family Medicine [address] [place] [address] External, Scanning Provider Social History Tobacco Use [...] often do you attend chur ch or sikh services? More than 4 times per year 11/19/2022 Do you belong to any clubs o r organizations such as catholic groups, unions, fraternal or athletic groups, or [...] 12/03/2023 PHQ-2 Answer Date Recorded Total Score 12 02/09/2024 [facility] of Occupat ional Health - [...] Do you need help finding a [facility] and/or a training program? No 11/19/2022 Hunger Screening Answer Date Recorded Within the past 12 months we worried whether our food would run out before we got money to buy more. Never True 02/09/2024 Within the past 12 months th e food we bought just didn't last and we didn't have money to get more. Never True 02/09/2024 Purpose - Life Answer Date Recorded I [...] Name Priority Date/Time Associated Diagnosis Comments XR SHOULDER RT MIN 2 VWS Routine 02/07/2024 8:[address] CERVICAL SPINE WO CONT Routine 02/07/2024 8:[address] THORACIC SPINE WO CONT Routine 02/07/2024 CT LUMBAR SPINE W WO CONT Routine 02/07/2024 XR KNEE LT 3 VWS Routine 02/07/2024 CT BRAIN WO CONT Routine 02/07/2024 documented in this encounter Results * X-ray shoulder right minimum 2 views (02/07/2024 8:37 AM EDT) Anatomical Region Laterality Modality MSK, Upper Extremities, Shoulder Right Computed Radiography us Scanning Provider External IMG DIAGNOSTIC IMAGIN G ORDERABLES Final Result * CT cervical spine without contrast (02/07/2024 8:34 AM EDT) Anatomical Region Laterality Modality MSK, Neuro, Spine, C-spine, Spine Covera N/A Computed Tomography us Scanning Provider External IMG CT ORDERABLES Fin al Result * CT lumbar spine with and without contrast (02/07/2024) Anatomical Region Laterality Modality MSK, Neuro, Spine, L-spine, Spine Covera N/A Computed Tomography 02/07/2024 us Scanning Provider External IMG CT ORDERABLES Fin al Result * CT thoracic spine without contrast (02/07/2024) Anatomical Region Laterality Modality MSK, Neuro, Spine, T-spine, Spine Covera N/A Computed Tomography 02/07/2024 us Scanning Provider External IMG CT ORDERABLES Fin al Result * CT brain without contrast (02/07/2024) Anatomical Region Laterality Modality Neuro, Head, Head and Neck, Neuro Covera N/A Computed Tomography 02/07/2024 us Scanning Provider External IMG CT ORDERABLES Christiano shavonne Result - Final * X-ray knee left 3 views (02/07/2024) Anatomical Region Laterality Modality Lower Extremities, MSK, Knee Left Com puted Radiography 02/07/2024 us Scanning Provider External IMG DIAGNOSTIC IMAGIN G ORDERABLES Final Result documented in this encounter Visit Diagnoses Not on filedocumented in this encounter Additional Health Concerns Assessment Noted Time PHQ-9 Depression Total Score: 12 024 12:49 PM EDT documented as of this encounter Care Teams Pollution Control Chemist Relationship Specialty Start Date End Date Rudolph Peter MD PCP - General Family Medicine 09/21/24 documented as of this encounter
--- OUTSIDE RECORDS SUMMARY | 2025-02-13 10:46 | XMS_ITS | Encounter Summary ---
Author Organization [facility] Address [id number] [address] [place] [address] Care Team Providers Care Derrick Boat Captain Name Role Phone Rudolph Peter MD Primary Care Provider [phone] Reason for Visit * Reason Comments Med Refill Encounter Details Date Type Department Care Team (Late st Contact Info) Description 07/22/2022 Refill [facility] - Family Medicine [address] [place] [address] Zen Viera, DO [address] [place] [address] Compression fracture of L1 vertebra with routine [...] Purpose and direction in life Unknown Comments Unknown Sex and Gender Information Value [...] encounter documented in this encounter Care Teams Derrick Boat Captain Relationship Specialty Start Date End Date Rudolph Peter MD PCP - General Family Medicine 09/21/24 documented as of this encounter
--- OUTSIDE RECORDS SUMMARY | 2025-02-13 10:46 | XMS_ITS | Encounter Summary ---
Author Organization [facility] Sys [facility] Address [id number] [address] [place] [address] Care Team Providers Care Powder And Primer Canning Leader Name Role Phone Rudolph Peter MD Primary Care Provider [phone] Encounter Details Date Type Department Care Team (Late st Contact Info) Description 07/12/2022 Orders Only [facility] [address] [facility] [place] [place] [address] Ref Prov, [place] [address] Social History Tobacco Use Types Packs/Day Years [...] Procedure Name Priority Date/Time Associated Diagnosis Comments DIABETES EYE EXAM Routine 07/12/2022 documented in this encounter Results * DIABETES EYE EXAM (07/12/2022) us Not In System Ref Prov HEALTH MAINTENANCE Final Result MANUALLY TRANSCRIBED RESULTS documented in this encounter Visit Diagnoses Not on filedocumented in this encounter Care Teams Powder And Primer Canning Leader Relationship Specialty Start Date End Date Rudolph Peter MD PCP - General Family Medicine 09/21/24 documented as of this encounter
--- OUTSIDE RECORDS SUMMARY | 2025-02-13 10:47 | XMS_ITS | Encounter Summary ---
Author Organization [facility] tem Address [facility] [id number] [address] [place] [address] Care Team Providers Care Concrete Analyst Name Role Phone Rudolph Peter MD Primary Care Provider [phone] Encounter Details Date Type Department Care Team (Late st Contact Info) Description 11/01/2023 Orders Only [facility] - Family Medicine [address] [place] [address] Zne Viera, DO [address], [place] [address] Social History Tobacco Use Types Packs/Day Years [...] often do you attend chur ch or latter-day services? More than 4 times per year 11/19/2022 Do you belong to any clubs o r organizations such as methodist groups, unions, fraternal or athletic groups, or [...] 11/19/2022 PHQ-2 Answer Date Recorded Total Score 0 07/12/2023 [facility] of Occupat ional Health - Occupational Stress [...] Assessment Noted Time PHQ-9 Depression Total Score: 0 07/12/20 23 12:48 PM EST documented as of this encounter Care Teams Concrete Analyst Relationship Specialty Start Date End Date Rudolph Peter MD PCP - General Family Medicine 09/21/24 documented as of this encounter
--- OUTSIDE RECORDS SUMMARY | 2025-02-13 10:47 | XMS_ITS | Encounter Summary ---
Author Organization [facility] Sys tem Address [facility] [place]-[id number] [address] [place] [address] Care Team Providers Care Cake Puncher Name Role Phone Rudolph Peter MD Primary Care Provider [phone] Encounter Details Date Type Department Care Team (Late st Contact Info) Description 08/18/2023 Orders Only [facility] Internal [facility] - Family Medicine [address] [place] [address] Zen Viera, DO [address], [place] [address] Social History Tobacco Use Types Packs/Day Years [...] often do you attend chur ch or amish services? More than 4 times per year 11/19/2022 Do you belong to any clubs o r organizations such as rastafari groups, unions, fraternal or athletic groups, or [...] Answer Date Recorded Total Score 0 07/12/2023 [facility] of Occupat ional Health - Occupational [...] documented as of this encounter Care Teams Cake Puncher Relationship Specialty Start Date End Date Rudolph Peter MD PCP - General Family Medicine 09/21/24 documented as of this encounter
--- OUTSIDE RECORDS SUMMARY | 2025-02-13 10:47 | XMS_ITS | Encounter Summary ---
Author Organization [facility] Address [facility] [id number] [address] [place] [address] Care Team Providers Care Upholstery Estimator Name Role Phone Rudolph Peter MD Primary Care Provider [phone] Encounter Details Date Type Department Care Team (Late st Contact Info) Description 11/29/2023 Telephone [facility] Internal [facility] - Family Medicine [address] [place] [address] Demetra Yin, OPHTHALMIC SURGEON-CIVILIAN JAIL OFFICER [address] [facility] [facility] [address] [place] [address] Social History Tobacco Use Types Packs/Day Years [...] often do you attend chur ch or nondenominational services? More than 4 times per year 11/19/2022 Do you belong to any clubs o r organizations such as muslim groups, unions, fraternal or athletic groups, or [...] 12/03/2023 PHQ-2 Answer Date Recorded Total Score 0 07/12/2023 [facility] of Occupat ional Health - Occupational Stress [...] got money to buy more. Never True 024 Within the past 12 months th e food we bought just didn't last and we didn't have money to get more. Sometimes True 12/03/2023 Purpose - Life Answer Date Recorded I [...] encounter Miscellaneous Notes * Telephone Encounter - Kaylin Fitch - 11/29/2023 9:10 AM EDT ----- Message from Demetra Yin APRN-MYRA sent at 11/29/2023 7:46 AM EDT ----- Regarding: refill of hydrocodone I haven't seen her since July, she needs an apt before her hydrocodone can be refilled - Demetra * Telephone Encounter - Kaylin Fitch - 11/29/2023 9:10 AM EDT As many times as we have scheduled appointment she keeps canceling, will try again documented in this encounter Plan of Treatment Not on file documented as of this encounter Visit Diagnoses Not on filedocumented in this encounter Additional Health Concerns Assessment Noted Time PHQ-9 Depression Total Score: 0 07/12/20 23 12:48 PM EST documented as of this encounter Care Teams Upholstery Estimator Relationship Specialty Start Date End Date Rudolhp Peter MD PCP - General Family Medicine 09/21/24 documented as of this encounter
--- OUTSIDE RECORDS SUMMARY | 2025-02-13 10:47 | XMS_ITS | Encounter Summary ---
Author Organization [facility] tem Address [id number] [address] [place] [address] Care Team Providers Care Airfreight Operations Agent Name Role Phone Rudolph Peter MD Primary Care Provider [phone] Encounter Details Date Type Department Care Team (Late st Contact Info) Description 05/27/2023 Orders Only [facility] - Family Medicine [address] [place] [address] Zen Viera, DO [address], [place] [address] Social History Tobacco Use Types Packs/Day Years [...] often do you attend chur ch or adventism services? More than 4 times per year 11/19/2022 Do you belong to any clubs o r organizations such as tenriism groups, unions, fraternal or athletic groups, or [...] 11/19/2022 PHQ-2 Answer Date Recorded Total Score 8 05/02/2023 [facility] of Occupat ional Health - Occupational [...] Assessment Noted Time PHQ-9 Depression Total Score: 8 05/02/20 23 1:14 PM EDT documented as of this encounter Care Teams Airfreight Operations Agent Relationship Specialty Start Date End Date Rudolph Peter MD PCP - General Family Medicine 09/21/24 documented as of this encounter
--- OUTSIDE RECORDS SUMMARY | 2025-02-13 10:47 | XMS_ITS | Encounter Summary ---
Author Organization [employer] [facility] Address [facility]-[id number] [address] [place] [address] Care Team Providers Care Acute Care Assistant Name Role Phone Rudolph Peter MD Primary Care Provider [phone] Reason for Visit * Reason Comments Med Refill Encounter Details Date Type Department Care Team (Late st Contact Info) Description 10/27/2022 Refill [facility] C[facility] - Medical Oncology [address] [place] [address] Zen Viera, DO [address] [facility], [place] [address] Social History Tobacco Use Types Packs/Day Years [...] Noted Time PHQ-9 Depression Total Score: 14 12/2 022 2:07 PM EST documented as of this encounter Care Teams Acute Care Assistant Relationship Specialty Start Date End Date Rudolph Peter MD PCP - General Family Medicine 09/21/24 documented as of this encounter
--- OUTSIDE RECORDS SUMMARY | 2025-02-13 10:47 | XMS_ITS | Encounter Summary ---
Author Organization [facility] Address [facility] [id number] [address] [place] [address] Care Team Providers Care Field Services Manager Name Role Phone Rudolph Peter MD Primary Care Provider [phone] Reason for Visit * Reason Comments Med Refill Encounter Details Date Type Department Care Team (Late st Contact Info) Description 06/01/2022 Refill [facility] - Family Medicine [address] [place] [address] Zen Viera, DO [address] [facility], [place] [address] Social History Tobacco Use Types Packs/Day Years [...] on filedocumented in this encounter Care Teams Field Services Manager Relationship Specialty Start Date End Date Rudolph Peter MD PCP - General Family Medicine 09/21/24 documented as of this encounter
--- OUTSIDE RECORDS SUMMARY | 2025-02-13 10:47 | XMS_ITS | Encounter Summary ---
Author Organization [facility] Sys tem Address [facility] [id number] [address] [place] [address] Care Team Providers Care It Application Support Analyst Name Role Phone Rudolph Peter MD Primary Care Provider [phone] Encounter Details Date Type Department Care Team (Late st Contact Info) Description 07/06/2023 Orders Only [facility] - Family Medicine [address] [place] [address] External, Scanning Provider Social History Tobacco Use [...] any clubs o r organizations such as pentecostalism groups, unions, fraternal or athletic groups, or [...] Answer Date Recorded Total Score 8 05/02/2023 [facility] of Occupat ional Health - Occupational [...] Recorded Do you need help finding a [facility] and/or a training program? [...] documented as of this encounter Care Teams It Application Support Analyst Relationship Specialty Start Date End Date Rudolph Peter MD PCP - General Family Medicine 09/21/24 documented as of this encounter
--- OUTSIDE RECORDS SUMMARY | 2025-02-13 10:47 | XMS_ITS | Encounter Summary ---
Author Organization [facility] Address [facility] [place]-[id number] [address] [place] [address] Care Team Providers Care Cylinder Press Operator Name Role Phone Rudolph Peter MD Primary Care Provider [phone] Reason for Visit * Reason Onset Date Comments Med Refill 04/25/2023 Encounter Details Date Type Department Care Team (Late st Contact Info) Description 04/25/2023 Refill [facility] - Family Medicine [address] [place] [address] Zen Viera, DO [address] [facility], [place] [address] Compression fracture of L1 vertebra with routine [...] often do you attend chur ch or christian services? More than 4 times per year 11/19/2022 Do you belong to any clubs o r organizations such as jainism groups, unions, fraternal or athletic groups, or [...] Answer Date Recorded Total Score 16 04/01/2023 [facility] of Occupat ional Health - Occupational Stress [...] Recorded Do you need help finding a [facility] career center and/or a training program? [...] documented as of this encounter Care Teams Cylinder Press Operator Relationship Specialty Start Date End Date Rudolph Peter MD PCP - General Family Medicine 09/21/24 documented as of this encounter
--- OUTSIDE RECORDS SUMMARY | 2025-02-13 10:47 | XMS_ITS | Encounter Summary ---
Author Organization [facility] Address [facility] [id number] [address] [place] [address] Care Team Providers Care General Superintendent Name Role Phone Rudolph Peter MD Primary Care Provider [phone] Reason for Visit * Reason Comments Med Refill Encounter Details Date Type Department Care Team (Late st Contact Info) Description 05/29/2022 Refill [facility] - Family Medicine [address] [place] [address] Zen Viera, DO [address] [facility], [place] [address] Compression fracture of L1 vertebra with routine [...] encounter documented in this encounter Care Teams General Superintendent Relationship Specialty Start Date End Date Rudolph Peter MD PCP - General Family Medicine 09/21/24 documented as of this encounter
--- OUTSIDE RECORDS SUMMARY | 2025-02-13 10:47 | XMS_ITS | Encounter Summary ---
Author Organization [facility] Address [id number] [address] [place] [address] Care Team Providers Care Grocery Deliverer Name Role Phone Rudolph Peter MD Primary Care Provider [phone] Encounter Details Date Type Department Care Team (Late st Contact Info) Description 06/01/2023 Orders Only [facility] Internal [facility] - Family Medicine [address] [place] [place] [address] Miranda Nash CMA Type 1 diabetes mellitus with diabetic polyneuropathy ([facility]) Social History Tobacco Use Types Packs/Day Years [...] often do you attend chur ch or church services? More than 4 times per year [...] Answer Date Recorded Total Score 8 05/02/2023 [facility] of Occupat ional Health - Occupational Stress [...] Recorded Do you need help finding a [facility] and/or a training program? [...] Procedure Name Priority Date/Time Associated Diagnosis Comments AMB REFERRAL TO ENDOCRINOLOGY Routine 06/01/2023 5:46 PM EDT Type 1 diabetes mellitus with diabetic polyneuropathy (CMS-HCC) documented in this encounter Results * Ambulatory referral to Endocrinology (06/01/2023 5:46 PM EDT) us Zen Viera DO OUTPATIENT REFERRAL ORDERABL ES Final Result MANUALLY TRANSCRIBED RESULTS documented in this encounter Visit Diagnoses Diagnosis Type 1 diabetes mellitus with diabetic polyneuropathy (CMS-HCC) documented in this encounter Additional Health Concerns Assessment Noted Time PHQ-9 Depression Total Score: 8 05/02/20 23 1:14 PM EDT documented as of this encounter Care Teams Grocery Deliverer Relationship Specialty Start Date End Date Rudolph Peter MD PCP - General Family Medicine 09/21/24 documented as of this encounter
--- OUTSIDE RECORDS SUMMARY | 2025-02-13 10:47 | XMS_ITS | Encounter Summary ---
Author Organization [email or web address] Sys tem Address [facility]-[id number] [address] [place] [address] Care Team Providers Care Drum Sealer Name Role Phone Rudolph Peter MD Primary Care Provider [phone] Reason for Visit * Reason Onset Date Comments Med Refill 05/16/2023 Encounter Details Date Type Department Care Team (Late st Contact Info) Description 05/16/2023 Refill Yojana Cai [facility] - Medical Oncology [address] [place] [address] Zen Viera, DO [address] [facility], [place] [address] Compression fracture of L1 vertebra with routine [...] often do you attend chur ch or baptist services? More than 4 times per year [...] Answer Date Recorded Total Score 8 05/02/2023 [facility] [place] of Occupat ional Health - Occupational Stress [...] Recorded Do you need help finding a [facility] career center and/or a training program? No [...] documented as of this encounter Care Teams Drum Sealer Relationship Specialty Start Date End Date Rudolph Peter MD PCP - General Family Medicine 09/21/24 documented as of this encounter
--- OUTSIDE RECORDS SUMMARY | 2025-02-13 10:47 | XMS_ITS | Encounter Summary ---
Author Organization [facility] tem Address [facility] [place]-[id number] [address] [place] [address] Care Team Providers Care Blow Mold Machine Operator Name Role Phone Rudolph Peter MD Primary Care Provider [phone] Encounter Details Date Type Department Care Team (Late st Contact Info) Description 08/08/2023 Orders Only [facility] Internal Medicine - Family Medicine [address] [place] [address] Zen Viera, DO [address], [place] [address] Social History Tobacco Use Types Packs/Day Years [...] often do you attend chur ch or worship services? More than 4 times per year 11/19/2022 Do you belong to any clubs o r organizations such as zoroastrianism groups, unions, fraternal or athletic groups, or [...] Answer Date Recorded Total Score 0 07/12/2023 [facility] of Occupat ional Health - Occupational [...] documented as of this encounter Care Teams Blow Mold Machine Operator Relationship Specialty Start Date End Date Rudolph Peter MD PCP - General Family Medicine 09/21/24 documented as of this encounter
--- OUTSIDE RECORDS SUMMARY | 2025-02-13 10:47 | XMS_ITS | Encounter Summary ---
Author Organization [employer] [facility] Address [facility] [place]-[id number] [address] [place] [address] Care Team Providers Care Regional Sales Trainer Name Role Phone Rudolph Peter MD Primary Care Provider [phone] Reason for Visit * Reason Onset Date Comments Med Refill 11/28/2023 Encounter Details Date Type Department Care Team (Late st Contact Info) Description 11/28/2023 Refill Yojana Cai [facility] - Medical Oncology [address] [place] [address] Demetra Yin, ALPINE PATROLLER-RETAIL ACCOUNT REPRESENTATIVE [address] [facility] [address] [place], [place] [id number] Compression fracture of L1 vertebra with routine [...] often do you attend chur ch or shinto services? More than 4 times per year 11/19/2022 Do you belong to any clubs o r organizations such as confucianist groups, unions, fraternal or athletic groups, or [...] Answer Date Recorded Total Score 0 07/12/2023 [facility] of Occupat ional Health - [...] Recorded Do you need help finding a [facility] career center and/or a training program? No [...] documented as of this encounter Care Teams Regional Sales Trainer Relationship Specialty Start Date End Date Rudolph Peter MD PCP - General Family Medicine 09/21/24 documented as of this encounter
--- OUTSIDE RECORDS SUMMARY | 2025-02-13 10:47 | XMS_ITS | Encounter Summary ---
Author Organization [facility] Address [facility] [place][id number] [address] [place] [address] Care Team Providers Care Unix Systems Administrator Name Role Phone Rudolph Peter MD Primary Care Provider [phone] Encounter Details Date Type Department Care Team (Late st Contact Info) Description 01/28/2022 Orders Only [facility] [address] [place] [address] Ref Prov, [place] [address] Social History Tobacco Use Types Packs/Day Years Used Date Smoking Tobacco: Former Smokeless Tobacco: Never Alcohol Use Standard Drinks/Week Comments Never 0 [...] Procedure Name Priority Date/Time Associated Diagnosis Comments ANKLE BRACHIAL INDEX Routine 01/28/2022 documented in this encounter Results * Ankle Brachial Index (01/28/2022) us Not In System Ref Prov PROCEDURE/MINOR SURGICAL ORDERABLES Final Result MANUALLY TRANSCRIBED RESULTS documented in this encounter Visit Diagnoses Not on filedocumented in this encounter Care Teams Unix Systems Administrator Relationship Specialty Start Date End Date Rudolph Peter MD PCP - General Family Medicine 09/21/24 documented as of this encounter
--- OUTSIDE RECORDS SUMMARY | 2025-02-13 10:47 | XMS_ITS | Encounter Summary ---
Author Organization [employer] Address [facility] [id number] [address] [place] [address] Care Team Providers Care Kitchen Food Assembler Name Role Phone Rudolph Peter MD Primary Care Provider [phone] Reason for Visit * Reason Comments Med Refill Encounter Details Date Type Department Care Team (Late st Contact Info) Description 11/11/2022 Refill Yojana Cai [facility] - Medical Oncology [address] [place] [address] Zen Viera, DO [address] [facility], [place] [address] Social History Tobacco Use Types Packs/Day Years [...] documented as of this encounter Care Teams Kitchen Food Assembler Relationship Specialty Start Date End Date Rudolph Peter MD PCP - General Family Medicine 09/21/24 documented as of this encounter
--- OUTSIDE RECORDS SUMMARY | 2025-02-13 10:47 | XMS_ITS | Clinical Summary ---
Author Organization [place] s tem Address [id number] [address] [place] [address] Care Team Providers Care Audio Visual Collections Coordinator Name Role Phone Rudolph Peter MD Primary Care Provider [phone] Allergies Active Allergy Reactions Criticality Noted Date Comments Adhesive High 06/03/2021 BLISTERS (IF ON FOR TOO LONG) Bee Pollen 01/30/2020 Bee Venom Protein (Honey Bee) 06/03/2021 Other reaction(s): TROUBLE BREATHING Cilostazol 01/30/2020 Icosapent Ethyl Dizziness 02/11/2022 Lisinopril Rash Low 01/30/2020 Red face Medications BABY ASPIRIN ORAL Take 81 mg by mouth daily. Active cholecalciferol, vitamin D3, 5,000 units tablet cholecalciferol (vitamin D3) 125 mcg (5,000 unit) tablet Active insulin aspart U-100 (NovoLOG) 100 unit/mL injection Novolog U-100 Insulin aspart 100 unit/mL subcutaneous solution Active nitroglycerin (NITROSTAT) 0.4 MG SL tabletIndications:C oronary arteriosclerosis 1 sublingually Q5 minutes prn chest pain 25 tablet 1 023 Active atorvastatin (LIPITOR) 80 mg tablet Take 1 tablet (80 mg total) by mouth in the morning. 100 tablet 3 023 Active insulin asp prt-insulin aspart (NovoLOG 70/30) 100 unit/mL (70-30) injection Inject under the skin. Active DULoxetine (CYMBALTA) 60 mg capsule Take 1 capsule (60 mg total) by mouth in the morning. 90 capsule 1 024 Active cyclobenzaprine (FLEXERIL) 10 mg tabletIndications:S train of neck muscle, initial encounter Take 1 tablet (10 mg total) by mouth 3 (three) times a day as needed for muscle spasms. 30 tablet 1 024 Active atenoloL (TENORMIN) 50 mg tablet Take 1 tablet (50 mg total) by mouth in the morning. 90 tablet 1 024 Active celecoxib (CeleBREX) 200 mg capsule take 1 capsule by mouth twice a day every morning and BEFORE BEDTIME 60 capsule 2 024 Active lancets (EmployInsightTOUCH DELICA PLUS LANCET) 33 gauge misc TEST DIRECTED 5 TIMES A DAY Active ONETOUCH VERIO TEST STRIPS strip TEST DIRECTED 5 TIMES A DAY Active blood-glucose meter (EmployInsightTOUCH VERIO REFLECT METER) misc use as directed Active HYDROcodone-acetami nophen (NORCO) 7.5-325 mg per tabletIndications:R heumatoid arthritis involving multiple sites, unspecified whether rheumatoid factor present ([facility]) Take 1 tablet by mouth in the morning. Max Daily Amount: 1 tablet. 21 tablet 024 Active DULoxetine (CYMBALTA) 30 mg capsule take 1 capsule by mouth every morning 30 capsule 024 Active gabapentin (NEURONTIN) 100 mg capsuleIndications: Diabetic polyneuropathy associated with type 1 diabetes mellitus ([facility]) Take 1 capsule (100 mg total) by mouth 3 (three) times a day. 90 capsule 2 024 Active finerenone (KERENDIA) 10 mg tablet Take 10 mg by mouth in the morning. 30 tablet 5 024 Active hydroxychloroquine (PLAQUENIL) 200 mg tabletIndications:R heumatoid arthritis involving multiple sites, unspecified whether rheumatoid factor present ([facility]) Take 1 tablet (200 mg total) by mouth in the morning and 1 tablet (200 mg total) before bedtime. 60 tablet 2 025 Active leflunomide (ARAVA) 20 mg tabletIndications:R heumatoid arthritis involving multiple sites, unspecified whether rheumatoid factor present ([facility]) Take 1 tablet (20 mg total) by mouth in the morning. 30 tablet 5 025 Active Active Problems Problem Noted Date Diagnosed Date Long-term use of leflunomide therapy 11/19/2024 Status post partial amputation of left foot 09/2023 Diabetic polyneuropathy asso ciated with type 1 diabetes mellitus 12/05/2023 Urge incontinence of urine 04/01/2023 Overweight 04/01/2023 PAD (peripheral artery disease) 11/19/2022 Acute coronary syndrome 05/21/2022 History of cholecystectomy 05/21/2022 History of coronary artery bypass surgery 2021 History of coronary artery stent placement 05/21 Localized, primary osteoarthritis of hand 2021 Sarcoidosis 05/21/2022 Hypertriglyceridemia 11/04/2020 Compression fracture of lumbar vertebra 09/29/19 21 Pathological fracture due to osteoporosis 2019 Postural orthostatic tachycardia syndrome 2019 Senile osteoporosis 09/18/2019 Gastroesophageal reflux disease 08/18/2019 Anxiety 08/16/2019 Coronary arteriosclerosis 08/16/2019 Deep vein thrombosis (DVT) 08/16/2019 Severe depression 08/16/2019 Hypertension 08/16/2019 Migraine 08/16/2019 Panic attack 08/16/2019 Primary fibromyalgia syndrome 08/16/2019 Rheumatoid arthritis 08/16/2019 Type 1 diabetes mellitus 01/08/1965 Encounters Date Type Department Care Team Description 01/25/2025 Telephone [facility] - Family Medicine [address] [place] [address] Manda Marinelli CMA appointment due 01/05/2025 Travel 12/17/2024 Travel 11/27/2024 Telephone [facility], A Department of [facility] [address] [facility] [address] [place] [address] Kailee Mays CMA 11/19/2024 2:54 PM EDT - 11/19/2024 11:59 PM EDT Hospital Encounter [facility] - Radiology Imaging [address] [facility] [address] [place] [phone] Rheumatoid arthritis involving multiple sites, unspecified whether rheumatoid factor present ([facility]) Discharge Disposition: Home 11/19/2024 2:54 PM EDT - 11/19/2024 11:59 PM EDT Hospital Encounter [facility] - Radiology Imaging [address] [facility] [address] [place] [phone] Rheumatoid arthritis involving multiple sites, unspecified whether rheumatoid factor present ([facility]) Discharge Disposition: Home 11/19/2024 2:36 PM EDT - 11/19/2024 2:53 PM EDT Hospital Encounter [facility] - Lab [address] [facility] [place] [phone] Rheumatoid arthritis involving multiple sites, unspecified whether rheumatoid factor present ([facility]); Long-term use of leflunomide therapy Discharge Disposition: Home 11/19/2024 2:15 PM EDT [facility] Department of [facility] [address] [facility] [address] [place] [address] Belgica Saba MD Rheumatoid arthritis involving multiple sites, unspecified whether rheumatoid factor present ([facility]) (Primary Dx); Long-term use of Plaquenil; Long-term use of leflunomide therapy 11/19/2024 Travel from Last 3 Months Immunizations Immunization Administration Dates Next Due COVID-19, mRNA, LNP-S, PF, 3 0mcg/0.3mL Dose 11/06/2020 Influenza, Injectable, quadr ivalent (PF) 07/12/2023,08/05/2022,05/21/2021,05/20,06/08/2019 Influenza, Unspecified 06/05/2020 Pneumococcal Conjugate 13-Valent 06/11/2020 Pneumococcal Polysaccharide 05/20/2020 Pneumococcal, Unspecified 06/05/2020 SARS-COV-2 (COVID-19) Vaccin e, Unspecified 11/03/2020 Tdap 09/17/2019 Tetanus Toxoid, Unspecified 11/28/2012 Family History Medical History Relation Name Comments Stroke Brother 1 blood clot went to brain after surgery for soft tissue mass on leg No Known Problems Brother 2 motorcycle accident at age 22 No Known Problems Daughter Cerebral aneurysm Father Ilana Hypertension Father Ilana Stroke Father Ilana Arthritis Maternal Grandmother Kelly Lived w ith it Dementia Mother Stroke Paternal Grandfather Diabetes Paternal Grandmother No Known Problems Son Relation Name Status Comments Brother 1 Brother 2 Daughter Alive Father Ilana Granddaughter Alive Grandson 1 Alive Grandson 2 Alive Maternal Grandfather Maternal Grandmother Kelly Mother Paternal Grandfather Paternal Grandmother Son Alive Social History Tobacco Use Types Packs/Day Years Used Date Smoking Tobacco: Former Cigarettes 2.5 24 1 976 - 06/06/1997 Smokeless Tobacco: Never Tobacco Cessation:Counseling Given: Not Answered Alcohol Use Standard Drinks/Week Comments Not Currently [...] often do you attend chur ch or mormon services? More than 4 times per year [...] Answer Date Recorded Total Score 16 04/13/2024 [facility] [place] of Occupat ional Health - Occupational Stress [...] Recorded Do you need help finding a [facility] career center and/or a training program? [...] Orientation Straight 09/15/2022 1: 36 AM EST Last Filed Vital Signs Vital Sign Reading Time Taken Comments Blood Pressure 114/64 11/19/2024 1:38 PM EDT Pulse 88 04/13/2024 11:43 AM EDT Temperature 36.7 C (98 F) 04/13/2024 11:43 AM EDT Respiratory Rate 18 11/19/2024 1:38 PM EDT Oxygen Saturation 97% 04/13/2024 11:43 AM EDT Inhaled Oxygen Concentration - - Weight 84.4 kg (186 lb) 11/19/2024 1:38 PM EDT Height 170.2 cm (5' 7.01 ) 11/19/2024 1:38 PM ED T Body Mass Index 29.12 11/19/2024 1:38 PM EDT Plan of Treatment Health Maintenance Due Date Last Done Comments Adult BMI Follow Up Plan 12/20/1977 Zoster (Shingles) Vaccine (1 of 2) 12/20/2009 Colonoscopy 11/19/2022 Mammogram 11/19/2022 Diabetic Foot Exam 09/13/2023 09/13/2022 Diabetic Ophthalmology Exam 06/30/2024 06/30/2023, 1 09/11/2021 Medicare Annual Wellness Visit 07/12/2024 07/12/2023 Depression Screening 04/13/2025 04/13/2024 Fall Risk Screening 04/13/2025 04/13/2024 Influenza Vaccine 05/06/2025 07/12/2023, , 05/21/2021, Additional history exists Adult BMI Screening 11/19/2025 11/19/2024 Tobacco Screening 11/19/2025 11/19/2024 DTaP,Tdap and Td Vaccines (2 - Td or Tdap) 09/17/2029 09/17/2019 COVID-19 Vaccine Discontinued 09/01/2021, , 11/06/2020, Additional history exists Medical Devices Not on file Procedures Procedure Name Priority Date/Time Associated Diagnosis Comments XR CHEST 2 VWS Routine 11/19/2024 3:22 PM EDT Rheumatoid arthritis involving multiple sites, unspecified whether rheumatoid factor present ([facility]) XR OSSEOUS SURVEY LIMITED Routine 11/19/2024 3:11 PM EDT Rheumatoid arthritis involving multiple sites, unspecified whether rheumatoid factor present ([facility]) VITAMIN D 25 HYDROXY Routine 11/19/2024 2:37 PM EDT Rheumatoid arthritis involving multiple sites, unspecified whether rheumatoid factor present ([facility]) VITAMIN B12 Routine 11/19/2024 2:37 PM EDT Rheumatoid arthritis involving multiple sites, unspecified whether rheumatoid factor present (CMS-HCC) TSH Routine 11/19/2024 2:37 PM EDT Rheumatoid arthritis involving multiple sites, unspecified whether rheumatoid factor present (CMS-HCC) COMPREHENSIVE METABOLIC PANEL Routine 11/19/2024 2:37 PM EDT Rheumatoid arthritis involving multiple sites, unspecified whether rheumatoid factor present (CMS-HCC) Long-term use of leflunomide therapy CBC WITH AUTO DIFFERENTIAL Routine 11/19/2024 2:37 PM EDT Rheumatoid arthritis involving multiple sites, unspecified whether rheumatoid factor present (CMS-HCC) Long-term use of leflunomide therapy C-REACTIVE PROTEIN Routine 11/19/2024 2: 37 PM EDT Rheumatoid arthritis involving multiple sites, unspecified whether rheumatoid factor present (CMS-HCC) ERYTHROCYTE SEDIMENTATION RATE (ESR) Routine 11/19/2024 2:37 PM EDT Rheumatoid arthritis involving multiple sites, unspecified whether rheumatoid factor present (CMS-HCC) RHEUMATOID FACTOR Routine 11/19/2024 2:3 7 PM EDT Rheumatoid arthritis involving multiple sites, unspecified whether rheumatoid factor present (CMS-HCC) CCP ANTIBODY Routine 11/19/2024 2:37 PM EDT Rheumatoid arthritis involving multiple sites, unspecified whether rheumatoid factor present (CMS-HCC) HM DIABETES EYE EXAM Routine 07/12/2022 from Last 3 Months or Most Recently Relevant to Health Maintenance Results * X-ray chest 2 views (11/19/2024 3:22 PM EDT) Anatomical Region Laterality Modality Body, Chest N/A Computed Radiogr aphy 11/19/2024 6:45 PM EDT Narrative 11/19/2024 6:46 PM EDT EXAM: XR CHEST 2 VWS CLINICAL INFORMATION: Rheumatoid arthritis involving multiple sites, unspecified whether rheumatoid factor present (CMS-HCC). COMPARISON: None. FINDINGS: There are low lung [...] Fernando Brenner MD on 11/19/2024 6:46 PM Procedure Note Fernando Brenner MD - 11/19/2024 EXAM: XR CHEST 2 VWS CLINICAL INFORMATION: Rheumatoid arthritis involving multiple sites,unspecified whether rheumatoid factor present ([facility]). COMPARISON: None. FINDINGS: There are low lung volumes with associated hypoventilatory changes. Thereis mild left basilar atelectasis. There are no focal consolidations.There is no pulmonary edema or pleural effusions. Heart size is withinnormal limits. There are changes of prior sternotomy. Changes of lumbarkyphoplasty are noted. IMPRESSION: 1. No acute cardiopulmonary disease. 2. Postsurgical changes, as above. Finalized by Fernando Brenner MD on 11/19/2024 6:46 PM Belgica Saba MD IMG DIAGNOSTIC IMAGING ORDERAB LES Final Result * X-ray osseous survey limited (11/19/2024 3:11 PM EDT) Anatomical Region Laterality Modality MSK N/A Computed Radiogr aphy 11/20/2024 7:51 AM EDT Narrative 11/20/2024 7:53 AM EDT XR OSSEOUS SURVEY LIMITED Rheumatoid arthritis involving multiple sites, unspecified whether rheumatoid factor present ([facility]) Findings: There is grossly no fracture or [...] Pavan Ames MD on 11/20/2024 7:53 AM Procedure Note Pavan Ames MD - 11/20/2024 XR OSSEOUS SURVEY LIMITED Rheumatoid arthritis involving multiple sites, unspecified whetherrheumatoid factor present ([facility]) Findings: There is grossly no fracture or destructive lesion. Impression: * No acute findings. Advanced inflammatory arthropathy with ulnarsubluxations and dislocations at the MPJs and extensive bone erosions atthose joints as well as diffuse osteopenia and extensive erosion of theradiocarpal joint and intercarpal articulations and distal radial ulnarjoint. Findings are bilateral but most notable on the right. * Consider MRI if you suspect occult process. * Finalized by Pavan Ames MD on 11/20/2024 7:53 AM Belgica Saba MD IMG DIAGNOSTIC IMAGING ORDERAB LES Final Result * Erythrocyte Sedimentation Rate (ESR) (11/19/2024 2:37 PM EDT) [facility] Sed Rate 29 0 - 30 mm/h 11/19/2024 6:00 PM EDT [facility] Blood / Unknown 11/19/2024 2 :37 PM EDT 11/19/2024 2:38 PM EDT Belgica Saba MD LAB BLOOD ORDERABLES Final Res ult [facility] [address] [facility] [place] [address] * (ABNORMAL) CCP Ab (11/19/2024 2:37 PM EDT) [facility] [address] CCP IgG Antibodies 16.3(H) <3.0 U/ML 11/20/2024 1:31 PM EDT [facility] Comment: Interpretation-------- <3 Negative >=3 Positive Serum / Unknown 11/19/2024 2 :37 PM EDT 11/19/2024 2:38 PM EDT us Belgica Saba MD LAB BLOOD ORDERABLES Final Res ult [facility] [address] [facility] [place] [address] * (ABNORMAL) CBC auto differential (11/19/2024 2:37 PM EDT) White Blood Cells 7.8 4.0 - 11.0 X10E9/L 11/19/2024 5:47 PM EDT [facility] RBC count 4.89 3.80 - 5.20 X10E12/L 11/19/2024 5:47 PM EDT [facility] Hemoglobin 14.6 11.7 - 15.5 g/dL 11/19/2024 5:47 PM EDT [facility] Hematocrit 43.6 35 - 47 % 11/19/2024 5:47 PM EDT [facility] MCV 89 80 - 100 fL 11/19/2024 5:47 PM EDT [facility] MCH 29.8 27 - 34 pg 11/19/2024 5:47 PM EDT [facility] MCHC 33.5 32 - 36 g/dL 11/19/2024 5:47 PM EDT [facility] RDW 19.0(H) 11.5 - 15.0 % 11/19/2024 5:47 PM EDT [facility] Platelets 262 150 - 450 X10E9/L 11/19/2024 5:47 PM EDT [facility] MPV 9.6 7 - 12 fL 11/19/2024 5:47 PM EDT [facility] % neutrophils 74.5 % 11/19/2024 5:47 PM EDT [facility] % lymphocytes 14.2 % 11/19/2024 5:47 PM EDT [facility] % monocytes 6.2 % 11/19/2024 5:47 PM EDT [facility] % eosinophils 3.6 % 11/19/2024 5:47 PM EDT [facility] % Basophils 1.5 % 11/19/2024 5:47 PM EDT [facility] Neutrophils Absolute (A) 5.8 1.5 - 6.6 X10E9/L 11/19/2024 5:47 PM EDT [facility] Lymphocytes Absolute 1.1 1.0 - 3.5 X10E9/L 11/19/2024 5:47 PM EDT [facility] Monocytes Absolute 0.5 0 - 0.9 X10E9/L 11/19/2024 5:47 PM EDT [facility] Eosinophils Absolute 0.3 0.0 - 0.4 X10E9/L 11/19/2024 5:47 PM EDT [facility] Basophils Absolute 0.1 0.0 - 0.2 X10E9/L 11/19/2024 5:47 PM EDT [facility] Blood / Unknown 11/19/2024 2 :37 PM EDT 11/19/2024 2:38 PM EDT us Belgica Saba MD LAB BLOOD ORDERABLES Final Res ult [facility]IL [facility] [address] [facility] [place] [address] * Vitamin D 25 hydroxy (11/19/2024 2:37 PM EDT) Vit D, 25-Hydroxy 55.1 30 - 100 ng/mL 11/19/2024 5:59 PM EDT [facility] Comment: Vitamin D status 25 [place] Vitamin D Deficiency <20 ng/mL Insufficiency 20-29 ng/mL Sufficiency 30-100 ng/mL Toxicity >100 ng/mL NOTE: A pediatric reference range has not been established by the veterinary nurse of this kit. The [place] [employer] recommends a Vitamin D level of = or >20ng/mL in infants and children. PLASMA 11/19/2024 2:37 PM EDT 11/19/2024 2:38 PM EDT Belgica Saba MD LAB BLOOD ORDERABLES Final Res ult [facility] [address] [facility] [place] [address] * (ABNORMAL) Rheumatoid factor (11/19/2024 2:37 PM EDT) Rheumatoid factor 54(H) <20 IU/mL 11/19/2024 5:30 PM EDT [facility] Serum / Unknown 11/19/2024 2 :37 PM EDT 11/19/2024 2:38 PM EDT Belgica Saba MD LAB BLOOD ORDERABLES Final Res ult Performing Organization Address City/[facility]/ZIP Co de Phone Number [facility] [address] [facility] [place] [address] * C-reactive protein (11/19/2024 2:37 PM EDT) CRP 0.5 0.000 - 0.744 mg/dL 11/19/2024 5:46 PM EDT [facility] PLASMA 11/19/2024 2:37 PM EDT 11/19/2024 2:38 PM EDT Belgica Saba MD LAB BLOOD ORDERABLES Final Res ult Performing Organization Address City/[facility]/ZIP Co de Phone Number [facility] [address] [facility] [address] [place] [address] * TSH (11/19/2024 2:37 PM EDT) Pathologist [facility] TSH 3.01 0.49 - 4.67 uIU/mL 11/19/2024 5:45 PM EDT [facility] PLASMA 11/19/2024 2:37 PM EDT 11/19/2024 2:38 PM EDT Belgica Saba MD LAB BLOOD ORDERABLES Final Res ult [facility] [address] [place] [address], [address] [place] [address] * Vitamin B12 (11/19/2024 2:37 PM EDT) Pathologist [facility] Vitamin B-12 279 180 - 914 pg/mL 11/19/2024 5:56 PM EDT [facility] Serum / Unknown 11/19/2024 2 :37 PM EDT 11/19/2024 2:38 PM EDT Belgica Saba MD LAB BLOOD ORDERABLES Final Res ult [facility] [address] [place] [address], [address] [place] [address] * (ABNORMAL) Comprehensive metabolic panel (11/19/2024 2:37 PM EDT) Pathologist [facility] Sodium 135 134 - 146 mmol/L 11/19/2024 5:46 PM EDT [facility] Potassium, Bld 5.0 3.5 - 5.0 mmol/L 11/19/2024 5:46 PM EDT [facility] Chloride 99 98 - 109 mmol/L 11/19/2024 5:46 PM EDT [facility] CO2 24 22 - 32 mmol/L 11/19/2024 5:46 PM EDT [facility] Anion gap 12 5 - 15 mmol/L 11/19/2024 5:46 PM EDT [facility] BUN 25 5 - 27 mg/dL 11/19/2024 5:46 PM EDT [facility] Creatinine 1.24(H) 0.40 - 1.00 mg/dL 11/19/2024 5:46 PM EDT [facility] Comment:METHOD TRACEABLE TO IDIA STANDARD Glucose 189(H) 65 - 99 mg/dL 11/19/2024 5:46 PM EDT [facility] Calcium 10.1 8.5 - 10.5 mg/dL 11/19/2024 5:46 PM EDT [facility] Total Protein 7.9 6.0 - 8.0 g/dL 11/19/2024 5:46 PM EDT [facility] Albumin 4.1 3.2 - 5.3 g/dL 11/19/2024 5:46 PM EDT [facility] Alkaline Phosphatase 154(H) 39 - 130 U/L 11/19/2024 5:46 PM EDT [facility] AST 28 0 - 41 U/L 11/19/2024 5:46 PM EDT [facility] ALT 19 0 - 31 U/L 11/19/2024 5:46 PM EDT [facility] Total bilirubin 0.4 0.3 - 1.2 mg/dL 11/19/2024 5:46 PM EDT [facility] eGFR (CKD-EPI)non-rac e dependent 49(L) >59 ml/min/1.7 3sq.m 11/19/2024 5:46 PM EDT [facility] Comment: Reported eGFR is based on the CKD-EPI 2020 equation that does not use a race coefficient. PLASMA 11/19/2024 2:37 PM EDT 11/19/2024 2:38 PM EDT Belgica Saba MD LAB BLOOD ORDERABLES Final Res ult [facility]IL [facility] [address] [facility] [facility] [place] [address] * DIABETES EYE EXAM (07/12/2022) us Not In System Ref Prov HEALTH MAINTENANCE Final Result MANUALLY TRANSCRIBED RESULTS from Last 3 Months or Most Recently Relevant to Health Maintenance Insurance [employer] MEDICARE MEDICAID [place] Care Teams Audio Visual Collections Coordinator Relationship Specialty Start Date End Date Rudolph Peter MD PCP - General Family Medicine 09/21/24
--- OUTSIDE RECORDS SUMMARY | 2025-02-13 10:47 | XMS_ITS | Encounter Summary ---
[id number] [address] [place] [address] Care Team Providers Care Cigarette Making Machine Catcher Name Role Phone Rudolph Peter MD Primary Care Provider [phone] Encounter Details Date Type Department Care Team (Late st Contact Info) Description 04/16/2024 [facility] [address] [place] [address] Humza Celeste CMA Social History Tobacco Use Types Packs/Day [...] often do you attend chur ch or jain services? More than 4 times per year 11/19/2022 Do you belong to any clubs o r organizations such as sikh groups, unions, fraternal or athletic groups, or [...] Answer Date Recorded Total Score 16 04/13/2024 [facility] [place] of Occupat ional Health - Occupational Stress [...] Recorded Do you need help finding a [facility] and/or a training [...] encounter Miscellaneous Notes * Telephone Encounter - Humza Celeste CMA - 04/16/2024 8:53 AM EDT ----- Message from Dr. Zen Viera DO sent at 04/15/2024 9:53 AM EDT ----- Her K+ is now ok. I will send in Kerendia if she still agrees. Her GFR is stable at 70 which is stage 2 chronic kidney disease. I called pt and read result note. Pt verbally states she understands. She is agreeable to Kerendia and pharmacy is [facility] documented in this encounter Plan of Treatment Not on file documented as of this encounter Visit Diagnoses Not on filedocumented in this encounter Additional Health Concerns Assessment Noted Time PHQ-9 Depression Total Score: 16 024 11:42 AM EDT documented as of this encounter Care Teams Cigarette Making Machine Catcher Relationship Specialty Start Date End Date Rudolph Peter MD PCP - General Family Medicine 09/21/24 documented as of this encounter
--- OUTSIDE RECORDS SUMMARY | 2025-02-13 10:47 | XMS_ITS | Encounter Summary ---
Author [facility] Address [facility] [place]-[id number] [address] [place] [address] Care Team Providers Care Radio Board Operator Name Role Phone Rudolph Peter MD Primary Care Provider [phone] Encounter Details Date Type Department Care Team (Late st Contact Info) Description 05/31/2023 [facility] [address] [place] [address] Zen Viera, DO [address], [place] [address] Social History Tobacco Use Types Packs/Day Years [...] often do you attend chur ch or jainism services? More than 4 times per year 11/19/2022 Do you belong to any clubs o r organizations such as pentecostal groups, unions, fraternal or athletic groups, or [...] Answer Date Recorded Total Score 8 05/02/2023 [facility] [place] of Occupat ional Health - Occupational Stress [...] encounter Miscellaneous Notes * Telephone Encounter - Colette King - 05/31/2023 10:47 AM EDT Michelle called from Dr Montoya's office. Pt was scheduled for an appt with them on 05-18-23 and was a no show. documented in this encounter Plan of Treatment Not on file documented as of this encounter Visit Diagnoses Not on filedocumented in this encounter Additional Health Concerns Assessment Noted Time PHQ-9 Depression Total Score: 8 05/02/20 23 1:14 PM EDT documented as of this encounter Care Teams Radio Board Operator Relationship Specialty Start Date End Date Rudolph Peter MD PCP - General Family Medicine 09/21/24 documented as of this encounter
--- OUTSIDE RECORDS SUMMARY | 2025-02-13 10:47 | XMS_ITS | Encounter Summary ---
[facility] Address [facility]-[id number] [address] [place] [address] Care Team Providers Care Cloth Printer Name Role Phone Rudolph Peter MD Primary Care Provider [phone] Encounter Details Date Type Department Care Team (Late st Contact Info) Description 07/18/2024 [facility] [address] [place] [address] Faiza Lange, WORKFORCE MANAGEMENT CONSULTANT Social History Tobacco Use Types Packs/Day Years [...] often do you attend chur ch or orthodox services? More than 4 times per year 11/19/2022 Do you belong to any clubs o r organizations such as anglican groups, unions, fraternal or athletic groups, or [...] Answer Date Recorded Total Score 16 04/13/2024 [facility] of Occupat ional Health - Occupational [...] Recorded Do you need help finding a [facility] and/or a training [...] Telephone Encounter - Faiza Lange CMA - 07/18/2024 10:30 AM EST Stephanie from [facility] called to see if you would follow this pt for [facility]? * Telephone Encounter - Zen Viera DO - 07/18/2024 10:30 AM EST sure documented in this encounter Plan of Treatment Not on file documented as of this encounter Visit Diagnoses Not on filedocumented in this encounter Additional Health Concerns Assessment Noted Time PHQ-9 Depression Total Score: 16 024 11:42 AM EDT documented as of this encounter Care Teams Cloth Printer Relationship Specialty Start Date End Date Rudolph Peter MD PCP - General Family Medicine 09/21/24 documented as of this encounter
--- OUTSIDE RECORDS SUMMARY | 2025-02-13 10:47 | XMS_ITS | Encounter Summary ---
Author Organization [facility] Sys tem Address [id number] [address] [place] [address] Care Team Providers Care Counter Person Name Role Phone Rudolph Peter MD Primary Care Provider [phone] Encounter Details Date Type Department Care Team (Late st Contact Info) Description 04/24/2024 Orders Only [facility] Internal Medicine - Family Medicine [address] [place] [address] Ref Prov, [place] [address] Social History Tobacco Use Types Packs/Day Years [...] often do you attend chur ch or lutheran services? More than 4 times per year 11/19/2022 Do you belong to any clubs o r organizations such as lutheran groups, unions, fraternal or athletic groups, or [...] Answer Date Recorded Total Score 16 04/13/2024 [facility] [place] of Occupat ional Health - Occupational Stress [...] Recorded Do you need help finding a [facility] career center and/or a training program? [...] Name Priority Date/Time Associated Diagnosis Comments XR TIBIA FIBULA LT MIN 2 VWS Routine 04/21/2024 7:39 AM EDT ECG 12-LEAD Routine 04/21/2024 7:38 AM EDT documented in this encounter Results * X-ray tibia fibula left minimum 2 views (04/21/2024 7:39 AM EDT) Anatomical Region Laterality Modality Lower Extremities, MSK, Lower Leg Left Computed Radiography us Not In System Ref Prov IMG DIAGNOSTIC IMAGING OR DERABLES Final Result * ECG 12 lead (04/21/2024 7:38 AM EDT) us Not In System Ref Prov ECG ORDERABLES Final Res ult MANUALLY TRANSCRIBED RESULTS documented in this encounter Visit Diagnoses Not on filedocumented in this encounter Additional Health Concerns Assessment Noted Time PHQ-9 Depression Total Score: 16 024 11:42 AM EDT documented as of this encounter Care Teams Counter Person Relationship Specialty Start Date End Date Rudolph Peter MD PCP - General Family Medicine 09/21/24 documented as of this encounter
--- OUTSIDE RECORDS SUMMARY | 2025-02-13 10:47 | XMS_ITS | Encounter Summary ---
Author Organization [facility] Sys tem Address [facility]-[id number] [address] [place] [address] Care Team Providers Care Paint Pourer Name Role Phone Rudolph Peter MD Primary Care Provider Encounter Details Date Type Department Care Team (Late st Contact Info) Description 05/17/2022 Orders Only [facility] Internal Medicine - Family Medicine [address] [place] [address] External, Scanning Provider Social History Tobacco Use [...] Procedure Name Priority Date/Time Associated Diagnosis Comments CT FOOT RT WO CONT Routine 05/13/2022 documented in this encounter Results * CT foot right without contrast (05/13/2022) Anatomical Region Laterality Modality MSK, Lower Extremities, Foot, Toes, MSK Covera R ight Computed Tomography us Scanning Provider External IMG CT ORDERABLES Fin al Result documented in this encounter Visit Diagnoses Not on filedocumented in this encounter Care Teams Paint Pourer Relationship Specialty Start Date End Date Rudolph Peter MD PCP - General Family Medicine 09/21/24 documented as of this encounter
--- OUTSIDE RECORDS SUMMARY | 2025-02-13 10:47 | XMS_ITS | Encounter Summary ---
Author Organization [facility] Address [address] [place] [address] Care Team Providers Care Hi Lo Driver Name Role Phone Rudolph Peter MD Primary Care Provider [phone] Encounter Details Date Type Department Care Team (Late st Contact Info) Description 01/01/2025 Abstract [facility] [address] [place] [phone] Rudolph Peter MD [address] [place] [address] Social History Tobacco Use Types Packs/Day Years [...] often do you attend chur ch or scientology services? More than 4 times per year 09/12/2024 Do you belong to any clubs o r organizations such as restorationism groups, unions, fraternal or athletic groups, or [...] care, and heating? Not very hard 09/12/2024 [facility] [place] of Occupat ional Health - Occupational Stress [...] any time in the past 12 m [facility], were you homeless or living in a usp (including now)? No 09/12/2024 Comments Unknown Sex [...] Visit [facility] [address] [place] [place] [address] Rudolph Peter MD [address] [place] [phone] 04/01/2025 2:10 PM EDT Office Visit [facility] [address] [place] [address] Zeyad Tate MD [address] [place] [address] documented as of this encounter Visit Diagnoses Not on filedocumented in this encounter Care Teams Hi Lo Driver Relationship Specialty Start Date End Date Rudolph Peter MD [address] [place] [phone] PCP - General Family Medicine 09/19/24 documented as of this encounter
--- OUTSIDE RECORDS SUMMARY | 2025-02-13 10:47 | XMS_ITS | Encounter Summary ---
Author Organization [facility] Address [facility] [place] [place]-[id number] [address] [place] [address] Care Team Providers Care Ssn/Ssbn Assistant Navigator Name Role Phone Rudolph Peter MD Primary Care Provider [phone] Reason for Visit * Reason Comments Med Refill Encounter Details Date Type Department Care Team (Late st Contact Info) Description 05/16/2023 Refill [facility] Internal Medicine - Family Medicine [address] [place] [address] Zen Viera, DO [address] [facility], [place] [address] Compression fracture of L1 vertebra with routine [...] often do you attend chur ch or buddhism services? More than 4 times per year 11/19/2022 Do you belong to any clubs o r organizations such as buddhist groups, unions, fraternal or athletic groups, or [...] Answer Date Recorded Total Score 8 05/02/2023 [facility] of Occupat ional Health - [...] Recorded Do you need help finding a [facility] career center and/or a training program? [...] documented as of this encounter Care Teams Ssn/Ssbn Assistant Navigator Relationship Specialty Start Date End Date Rudolph Peter MD PCP - General Family Medicine 09/21/24 documented as of this encounter
--- OUTSIDE RECORDS SUMMARY | 2025-02-13 10:47 | XMS_ITS | Encounter Summary ---
Author [facility] Address [id number] [address] [place] [address] Care Team Providers Care Spring Coiler Name Role Phone Rudolph Peter MD Primary Care Provider [phone] Encounter Details Date Type Department Care Team (Late st Contact Info) Description 11/15/2023 Telephone [facility] Internal Medicine - Family Medicine [address] [place] [address] Demetra Yin, PRESSURIZATION MECHANIC-COVER SEAMER [address] [place] [address] Social History Tobacco Use Types Packs/Day Years [...] often do you attend chur ch or advent services? More than 4 times per year 11/19/2022 Do you belong to any clubs o r organizations such as hinduism groups, unions, fraternal or athletic groups, or [...] Answer Date Recorded Total Score 0 07/12/2023 [facility] [place] of Occupat ional Health - Occupational Stress [...] got money to buy more. Sometimes True 03/17/2 023 Within the past 12 months th [...] * Telephone Encounter - Kaylin Fitch - 11/15/2023 10:32 AM EDT ----- Message from Demetra Yin APRN-MYRA sent at 11/15/2023 8:00 AM EDT ----- Regarding: hydrocodone prescription I am going to refill her hydrocodone today but it appears she has been on this intermittently for some time, I would recommend she make a f/u apt with Dr Viera when he comes back as she likely meets the criteria at this point for chronic management - Demetra * Telephone Encounter - Kaylin Fitch - 11/15/2023 10:32 AM EDT LM on VM documented in this encounter Plan of Treatment Not on file documented as of this encounter Visit Diagnoses Not on filedocumented in this encounter Additional Health Concerns Assessment Noted Time PHQ-9 Depression Total Score: 0 07/12/20 23 12:48 PM EST documented as of this encounter Care Teams Spring Coiler Relationship Specialty Start Date End Date Rudolph Peter MD PCP - General Family Medicine 09/21/24 documented as of this encounter
--- OUTSIDE RECORDS SUMMARY | 2025-02-13 10:47 | XMS_ITS | Clinical Summary ---
Author Organization [facility] Healthcare Address [address] [place] [address] Care Team Providers Care Patient Service Specialist Name Role Phone Rudolph Peter MD Primary Care Provider [phone] Allergies Active Allergy Reactions Criticality Noted Date Comments Bee Venom 06/03/2021 Other reaction(s): TROUBLE BREATHING Hydromorphone 07/01/2024 Lisinopril Other 01/30/2020 Other Reaction(s): LOW BLOOD PRESSURE Wound Dressing Adhesive High 06/03/2021 BLISTERS (IF ON FOR TOO LONG) Medications atorvastatin (Lipitor) 80 MG tablet Take 80 mg by mouth Daily Active aspirin 81 MG EC tablet Take 81 mg by mouth Daily Active nitroglycerin (Nitrostat) 0.[address] 0.4 mg under the tongue every 5 (five) minutes if needed for chest pain Active gabapentin (Neurontin) 100 MG capsule Take 1 capsule by mouth in the morning and 1 capsule in the evening and 1 capsule before bedtime. Active DULoxetine (Cymbalta) [address] capsule Take 30 mg by mouth in the morning and 30 mg before bedtime. Do not crush or chew. Active Insulin Aspart (NovoLOG) 100 UNIT/ML solutionIndicati ons:Type 1 diabetes mellitus with hyperglycemia (HCC) ([facility]) Inject 50 Units as directed Daily 60 mL 1 024 Active insulin aspart (NovoLOG, Fiasp) 100 UNIT/ML patient supplied pump Inject under the skin continuously Active folic acid (Folvite) 1 MG tabletIndication s:Rheumatoid arthritis involving multiple sites with positive rheumatoid factor (CMS/HCC) Take 1 tablet (1 mg) by mouth Daily 30 tablet 5 025 Active Additional Information Patient not taking.Reported on 01/15/2025 methotrexate 2.5 MG tabletIndication s:Rheumatoid arthritis involving multiple sites with positive rheumatoid factor (CMS/HCC) 4 tabs PO once a week 16 tablet 025 Active celecoxib (CeleBREX) 200 MG capsuleIndicatio ns:Rheumatoid arthritis involving multiple sites with positive rheumatoid factor (CMS/HCC) Take 1 capsule (200 mg) by mouth in the morning and 1 capsule (200 mg) before bedtime. 60 capsule 3 025 Active levothyroxine (Synthroid, Levoxyl) 75 MCG tabletIndication s:Dyslipidemia (CMS/HCC) Take 1 tablet (75 mcg) by mouth in the morning. Take before meals. 90 tablet 3 025 Active methocarbamol (Robaxin) 500 MG tabletIndication s:Rheumatoid arthritis involving multiple sites with positive rheumatoid factor (CMS/HCC) Take 1 tablet (500 mg) by mouth every 8 (eight) hours if needed for muscle spasms 90 tablet 025 Active DULoxetine (Cymbalta) [address] capsuleIndicatio ns:Generalized anxiety disorder (CMS/HCC) Take 1 capsule (60 mg) by mouth Daily Do not crush or chew. 30 capsule 025 2025 Active leflunomide (Arava) 10 MG tablet Take 10 mg by mouth Daily Active albuterol HFA 90 mcg/act inhalerIndicatio ns:SOB (shortness of breath) on exertion Inhale 2 puffs every 4 (four) hours if needed for shortness of breath or wheezing 18 g 2 025 Active atenolol (Tenormin) 50 MG tabletIndication s:POTS (postural orthostatic tachycardia syndrome) TAKE 1 TABLET BY MOUTH IN THE MORNING 90 tablet 3 025 Active HYDROcodone-acet aminophen ([place]) 5-325 MG tabletIndication s:Rheumatoid arthritis involving multiple sites with positive rheumatoid factor (CMS/HCC) Take 1 tablet by mouth 4 (four) times a day as needed for moderate pain or severe pain 28 tablet 025 Active atenolol (Tenormin) 50 MG tablet Take 50 mg by mouth Daily 2024 Discontinued HYDROcodone-acet aminophen ([place]) 5-325 MG tabletIndication s:Rheumatoid arthritis involving multiple sites with positive rheumatoid factor (CMS/HCC) Take 1 tablet by mouth 4 (four) times a day as needed for severe pain or moderate pain 28 tablet 025 2024 Discontinued Active Problems Problem Noted Date Diagnosed Date Rheumatoid arthritis with rh eumatoid factor of multiple sites without organ or systems involvement 01/24/2025 Unsteadiness on feet 01/24/2025 SOB (shortness of breath) on exertion 01/15/2025 Assessment & Plan (01/15/2025 12:34 PM EDT): Continued SOB and former smoker. Check PFTs and start albuterol PRN. Chest pain at rest 01/15/2025 Assessment & Plan (01/15/2025 12:33 PM EDT): Developed pain with exertion and prior 3 vessel CABG. Check lexiscan cardiolyte stress test. Follow with cardiology. Hypersomnia 12/10/2024 Assessment & Plan (01/15/2025 12:34 PM EDT): Signs of MARA and check sleep study. Assessment & Plan (12/10/2024 2:53 PM EDT): Signs of MARA and check sleep study. PAD (peripheral artery disease) 09/19/2024 Assessment & Plan (09/19/2024 12:07 PM EST): Not lightheaded and monitor. Return to vascular. Coronary artery disease invo lving mohegan coronary artery of mohegan heart without angina pectoris 09/19/2024 Assessment & Plan (01/15/2025 12:34 PM EDT): Check stress test and follow with cardiology. Assessment & Plan (12/10/2024 2:53 PM EDT): Feels worse and follow up with cardiology. Assessment & Plan (09/19/2024 12:07 PM EST): No pain and continue medication. Recommend return to cardiology. Rheumatoid arthritis involvi ng multiple sites with positive rheumatoid factor 09/19/2024 Assessment & Plan (12/10/2024 2:54 PM EDT): Continued pain and deformity. Follow with rheum. Assessment & Plan (09/19/2024 12:14 PM EST): Continued pain and deformity. Check labs and refer to rheumatology. Resume methotrexate and folic acid. Resume norco. Discussed risks and benefits of opiate therapy. Warned medication is narcotic and risk of addiction. OARRS reviewed. Type 1 diabetes mellitus with hyperglycemia (HCC ) 09/19/2024 Assessment & Plan (12/10/2024 2:54 PM EDT): BS stable and follow with endo. Assessment & Plan (09/19/2024 12:14 PM EST): BS stable and follow with endo. Type I diabetes mellitus with polyneuropathy Assessment & Plan (12/10/2024 2:54 PM EDT): Symptoms stable and continue neurontin. Assessment & Plan (09/19/2024 12:14 PM EST): Symptoms stable and continue neurontin. POTS (postural orthostatic tachycardia syndrome) 09/19/2024 Assessment & Plan (01/23/2025 2:46 PM EDT): Monica is in need of a power wheelchair due to POTS, DM with polyneuropathy, and RA in order to complete MRADLs. Assessment & Plan (12/10/2024 2:54 PM EDT): Occasional symptoms and increase fluids. Continue atenolol. Assessment & Plan (09/19/2024 12:07 PM EST): Occasional symptoms and increase fluids. Continue atenolol. Encounter for long-term (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 medicat ions 09/19/2024 Type 1 diabetes mellitus wit h other circulatory complications 07/18/2024 Assessment & Plan (09/19/2024 12:14 PM EST): Follow with vascular. Vitamin D deficiency, unspecified 07/18/2024 Dyslipidemia 07/18/2024 Presence of insulin pump (external) (internal) 1 09/17/2023 nursing home (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 07/18/2024 Resolved Problems Problem Noted Date Diagnosed Date Resolved Date Essential (primary) hypertension 07/18/2024 09/19/2024 Dietary counseling and surveillance 07/18/2024 09/19/2024 Encounters Date Type Department Care Team Description 01/26/2025 Refill [facility] [address] [place] [address] Rudolph Peter MD POTS (postural orthostatic tachycardia syndrome) (Primary Dx); Rheumatoid arthritis involving multiple sites with positive rheumatoid factor ([facility]/HCC) 01/24/2025 Bamboo flowsheet [facility] [address] [place] [address] Taylor Tilley, PT 01/24/2025 Travel 01/24/2025 Plan of Care Documentation [facility] [address] [place] [address] 01/23/2025 10:45 AM EDT Clinical Support [facility] [address] [place] [address] Taylor Tilley, PT POTS (postural orthostatic tachycardia syndrome) (Primary Dx); Rheumatoid arthritis with rheumatoid factor of multiple sites without organ or systems involvement ([facility]); Unsteadiness on feet 01/23/2025 Telephone [facility] [address] [place] [address] Rudolph Peter MD 01/15/2025 11:45 AM EDT Office Visit [facility] [address] [place] [address] Rudolph Peter MD Chest pain at rest (Primary Dx); SOB (shortness of breath) on exertion; Coronary artery disease involving mohegan coronary artery of mohegan heart without angina pectoris (CMS/HCC); Hypersomnia; POTS (postural orthostatic tachycardia syndrome) 01/01/2025 Abstract [facility] [address] [place] [address] Rudolph Peter MD 01/01/2025 Abstract [facility] [address] [place] [address] Rudolph Peter MD 12/31/2024 2:10 PM EDT Office Visit [facility] [address] [place] [address] Zeyad Tate MD Type 1 diabetes mellitus with hyperglycemia (HCC) (CMS/HCC) (Primary Dx); Essential (primary) hypertension (CMS/HCC); Vitamin D deficiency, unspecified; Dietary counseling and surveillance; Mixed hyperlipidemia (CMS/HCC); Presence of insulin pump (external) (internal); nursing home (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 (CMS/HCC); Encounter for fitting or adjustment of insulin pump 12/31/2024 Bamboo flowsheet [facility] [address] [place] [address] Zeyad Tate MD 12/27/2024 [facility] [address] [place] [address] Rudolph Peter MD Rheumatoid arthritis involving multiple sites with positive rheumatoid factor (CMS/HCC) 12/27/2024 Travel 12/17/2024 Abstract [facility] [address] [place] [address] Rudolph Peter MD 12/10/2024 2:15 PM EDT Office Visit [facility] [address] [place] [address] Rudolph Peter MD Type I diabetes mellitus with polyneuropathy (CMS/HCC) (Primary Dx); Type 1 diabetes mellitus with hyperglycemia (HCC) (CMS/HCC); POTS (postural orthostatic tachycardia syndrome); Rheumatoid arthritis involving multiple sites with positive rheumatoid factor ([facility]); Coronary artery disease involving mohegan coronary artery of mohegan heart without angina pectoris ([facility]); Hypersomnia 12/10/2024 Bamboo flowsheet [facility] [address] [place] [address] Rudolph Peter MD 12/08/2024 Travel 12/06/2024 Clinisync Result Encounter [facility] External Department Unsolicited Provider, Generic External Data 12/06/2024 Clinisync Result Encounter [facility] External Department Unsolicited Provider, Generic External Data 12/05/2024 Clinisync Result Encounter [facility] External Department Unsolicited Provider, Generic External Data 12/04/2024 Travel 12/03/2024 Clinisync Result Encounter [facility] External Department Unsolicited Provider, Generic External Data 12/03/2024 Refill [facility] [address] [place] [address] Rudolph Peter MD Rheumatoid arthritis involving multiple sites with positive rheumatoid factor ([facility]) 11/30/2024 Clinisync Result Encounter [facility] External Department Unsolicited Provider, Generic External Data 11/20/2024 Orders Only [facility] [address] [place] [address] Rudolph Peter MD 11/19/2024 External Result Encounter [facility] External Department Unsolicited Provider, Generic External Data from Last 3 Months Immunizations Immunization Administration Dates Next Due Influenza, Unspecified 06/05/2020 Influenza, injectable, quadr ivalent, preservative free 08/05/2022,05/21/2021,05/20/2020,06/08 Influenza, seasonal, injectable 06/04/2019 Pfizer Purple Cap SARS-CoV-2 Vaccination 09/01/2021,11/27/2020,11/06/2020 Pneumococcal Conjugate PCV 13 06/11/2020 Pneumococcal Polysaccharide PPSV23 05/20/2020 Pneumococcal, Unspecified 06/05/2020 SARS-CoV-2, Unspecified 11/03/2020 Tdap 09/17/2019 Tetanus Toxoid, Unspecified 11/28/2012 Family History Medical History Relation Name Comments Heart disease Father Relation Name Status Comments Father Mother Other 2 children Alive Sibling 2 Social History Tobacco Use Types Packs/Day Years Used Date Smoking Tobacco: Former Cigarettes Smokeless Tobacco: Never Tobacco Cessation:Counseling Given: Not [...] 09/12/2024 How often do you attend chur or rastafarian services? More than 4 times per year [...] care, and heating? Not very hard 09/12/2024 [facility] [place] [facility] Occupat ional [facility] - Occupational Stress [...] any time in the past 12 [address] [place], were you homeless or living in a alf (including now)? No 09/12/2024 Comments Unknown Sex and Gender Information Value Date Recorded Sex Assigned at Not on file Legal Sex Female 11:21 PM EDT Gender Identity Not on file Sexual Orientation Straight 05/04/2023 9: 27 AM EDT Last Filed Vital Signs Vital Sign Reading Time Taken Comments Blood Pressure 140/70 01/15/2025 12:06 PM EDT Pulse 88 01/15/2025 12:06 PM EDT Temperature 35.7 C (96.2 F) 01/15/2025 12:06 PM EDT Respiratory Rate 20 01/15/2025 12:06 PM EDT Oxygen Saturation 97% 01/15/2025 12:06 PM EDT Inhaled Oxygen Concentration - - Weight 84.8 kg (187 lb) 01/15/2025 12:06 PM EDT Height 170.2 cm (5' 7 ) 01/15/2025 12:06 PM EDT Body Mass Index 29.29 01/15/2025 12:06 PM EDT Plan of Treatment Upcoming Encounters Date Type Department Care Team (Late st Contact Info) Description 03/14/2025 1:30 PM EDT Office Visit [facility] [address] [place] [address] Rudolph Peter MD [address] [place] [address] 04/01/2025 2:10 PM EDT Office Visit [facility] [address] [place] [phone] Zeyad Tate MD [address] [place] [address] Health Maintenance Due Date Last Done Comments CT Colonography 1960 Colonoscopy 1960 FIT-DNA 1959 FIT 1960 FOBT 1960 Sigmoidoscopy 1960 Diabetes: Retinopathy Screening 12/20/1969 Pap Smear 12/20/1980 Cervical Cancer Screening 12/20/1989 HPV/Cotest 12/20/1989 Medicare Annual Wellness (AWV) 07/12/2024 07/12/2023 Diabetes: Urine Protein Screening 03/27/2025 03/27/2024, 03/27/2024 Influenza Vaccine (Season Ended) 2025 07/12/2023, 08/05/2022, 05/21/2021, Additional history exists Pneumococcal Vaccine: 65+ Years (3 of 3 - PCV20 or PCV21) 06/11/2025 06/11/2020, 06/05/2020, 05/20/2020 Diabetes: Hemoglobin A1C 07/02/2025 025, 08/21/2024, 06/30/2020 Colorectal Cancer Screening 09/19/2025 Postponed from 1959 (Patient Refused) Mammogram 09/19/2025 Postponed from 1999 (Patient Refused) Procedures Procedure Name Priority Date/Time Associated Diagnosis Comments POCT GLYCOSYLATED HEMOGLOBIN (HGB A1C) Routine 12/31/2024 1:55 PM EDT Type 1 diabetes mellitus with hyperglycemia (HCC) ([facility]) POCT GLUCOSE Routine 12/31/2024 1:55 PM EDT Type 1 diabetes mellitus with hyperglycemia (HCC) ([facility]) XR TIBIA FIBULA 2 VIEWS RIGHT 12/06/2024 2:32 PM EDT AEROBIC CULTURE Routine 12/06/2024 1:14 PM EDT ANAEROBIC CULTURE Routine 12/06/2024 1:1 4 PM EDT FUNGUS STAIN Routine 12/06/2024 1:14 PM EDT GRAM STAIN RESULT Routine 12/06/2024 1:1 4 PM EDT FUNGUS (MYCOLOGY) CULTURE Routine 12/06/2024 1:14 PM EDT ACID FAST CULTURE Routine 12/06/2024 1:1 4 PM EDT ACID FAST SMEAR Routine 12/06/2024 1:14 PM EDT AFB SPECIMEN PROCESSING Routine 12/06/2024 1:14 PM EDT ALL CBC WITH AUTO DIFF Routine 12/06/2024 10:[address] LOWER EXTREMITY RIGHT WO IV CONTRAST 12/05/2024 2:22 PM EDT CA ECHO DOPPLER COMPLETE 12/03/2024 7:51 PM EDT CCF APTT Routine 11/30/2024 3:10 PM EDT SRMCOH PROTHROMBIN TIME INR W/O COUM Routine 11/30/2024 3:10 PM EDT XR BONE SURVEY LIMITED Routine 11/20/2024 11:55 AM EDT XR CHEST 2 VIEWS Routine 11/20/2024 8:54 AM EDT CYCLIC CITRUL PEPTIDE ANTIBODY, IGG Routine 11/19/2024 2:37 PM EDT SED RATE BY MODIFIED WESTERGREN Routine 11/19/2024 2:37 PM EDT VITAMIN D 25 HYDROXY TOTAL Routine 11/19/2024 2:37 PM EDT VITAMIN B12 Routine 11/19/2024 2:37 PM EDT CBC WITH AUTO DIFFERENTIAL Routine 11/19/2024 2:37 PM EDT C-REACTIVE PROTEIN Routine 11/19/2024 2: 37 PM EDT COMPREHENSIVE METABOLIC PANEL Routine 11/19/2024 2:37 PM EDT TSH ([place]) Routine 11/19/2024 2:37 PM EDT RHEUMATOID FACTOR Routine 11/19/2024 2:3 7 PM EDT from Last 3 Months Results * POCT glycosylated hemoglobin (Hb A1C) docked device (12/31/2024 1:55 PM EDT) Hemoglobin A1C 7.5 Blood Venous blood specimen / Unknown 12/31/2024 1:55 PM EDT us Zeyad Tate MD POINT OF CARE TEST ENTER/EDIT ORDERABLES Final Result * POCT glucose manually resulted (12/31/2024 1:55 PM EDT) Glucose Blood, POC 166 mg/dL Blood Capillary blood specimen / Unknown 12/31/2024 1:55 PM EDT us Zeyad Tate MD POINT OF CARE TEST ENTER/EDIT ORDERABLES Final Result * XR tibia fibula 2 views right (12/06/2024 2:32 PM EDT) Anatomical Region Laterality Modality Lower Extremities, Lower Leg Right Rad iographic Imaging 12/06/2024 2:32 PM EDT Narrative 12/06/2024 2:35 [place] [address] XRay Report Signed Patient: MONICA ACOSTA MR#: [id number] : 1960 Acct:[id number] Age/Sex: 63 / F ADM Date: 12/06/24 Loc: SURGOUT Attending Dr: Radha Montoya D.P.M. Ordering Physician: Radha Montoya D.P.M. Date of Service: 12/06/24 Procedure(s): XR tibia fibula RT 2V Accession Number(s): [id number] cc: Radha Montoya D.P.M.; Rudolph Peter M.D. [place] [address] Patient Name: MONICA ACOSTA MRN: [facility]:[id number] date: 1960 Sex: F Assigned Patient Location: [facility] Current Patient Location: [facility] Accession/Order Number: [id number] Exam Date: 12/06/2024 14:30 Report Date: 12/06/2024 14:32 At the request of: RADHA MONTOYA DPM Procedure: XR tibia fibula RT 2V 2 views right tibia and fibula plain film HISTORY: Postop right lower leg osteomyelitis COMPARISON: CT 12/05/2024 ACUTE FINDINGS: Stable bony alignment. No acute complication. DEGENERATIVE CHANGE: Unremarkable SOFT TISSUE FINDINGS: Atherosclerosis JOINT EFFUSION: None POSTOP CHANGES: Postsurgical bony resection changes of the anterior portion of the distal tibia. Stable hardware. BONE MINERALIZATION: Adequate XR/XR tibia fibula RT 2V IMPRESSION: Bony resection changes of the anterior distal tibia. No complication. Intact hardware. No bony or soft tissue complication. Impression dictated by: Solo Hill M.D.12/06/2024 2:32 PM Dictation Location: [place] [address] Electronically authenticated by: [id number] Y Date: 12/06/2024 14:32 Dictated By: Solo Hill D.O. Signed By: 12/06/241434 DD/ 31 TD/TT: Comber Setter: Procedure Note Radiology, Radiologist, - 12/06/2024 [place] [address] XRay Report Signed Patient: MONICA ACOSTA LMR#: [id number] : 1960Acct:[id number] Age/Sex: 63 / FADM Date: 12/06/24 Loc: SURGOUT Attending Dr: Radha Montoya D.P.M. Ordering Physician: Radha Montoya D.P.M. Date of Service: 12/06/24 Procedure(s): XR tibia fibula RT 2V Accession Number(s): [id number] cc: Radha Montoya D.P.M.; Rudolph Peter M.D. The [address] [address] Patient Name: MONICA ACOSTA MRN: [id number] date: 1960 Sex: F Assigned Patient Location: [facility] Current Patient Location: [facility] Accession/Order Number: [id number] Exam Date: 12/06/2024 14:30 Report Date: 12/06/2024 14:32 At the request of: RADHA MONTOYA DPPetra Procedure: XR tibia fibula RT 2V 2 views right tibia and fibula plain film HISTORY: Postop right lower leg osteomyelitis COMPARISON: CT 12/05/2024 ACUTE FINDINGS: Stable bony alignment. No acute complication. DEGENERATIVE CHANGE: Unremarkable SOFT TISSUE FINDINGS: Atherosclerosis JOINT EFFUSION: None POSTOP CHANGES: Postsurgical bony resection changes of the anteriorportion of the distal tibia. Stable hardware. BONE MINERALIZATION: Adequate XR/XR tibia fibula RT 2V IMPRESSION: Bony resection changes of the anterior distal tibia. No complication. Intact hardware. No bony or soft tissue complication. Impression dictated by: Solo Hill M.D.12/06/2024 2:32 PM Dictation Location: [place] [address] Electronically authenticated by: [id number] Y Date: 4:32 Dictated By: Solo Hill D.O. Signed By:12/06/24 1435 DD/ 31 TD/TT: Comber Setter: Generic External Data Provider IMG XR PROCEDURES Final Result * ANAEROBIC CULTURE (12/06/2024 1:14 PM EDT) ANAEROBIC CULTURE Anaerobic Culture No anaerobic growth in 72 hours. TB 12/06/2024 1:14 PM EDT 12/06/2024 2:41 PM EDT Narrative CLINISYID - 01/01/2025 4:07 PM EDT Generic External Data Provider LAB BLOOD ORDERAB LES Final Result Performing Organization Address [facility] Co de Phone Number [facility] TB * AEROBIC CULTURE (12/06/2024 1:14 PM EDT) AEROBIC CULTURE Aerobic Culture No growth in 56-72 hours. TB 12/06/2024 1:14 PM EDT 12/06/2024 2:41 PM EDT Narrative CLINISYID - 01/01/2025 4:07 PM EDT Generic External Data Provider LAB BLOOD ORDERAB LES Final Result Performing Organization Address [facility] Co de Phone Number [facility] * GRAM STAIN RESULT (12/06/2024 1:14 PM EDT) GRAM STAIN RESULT Gram Stain Result TB[facility] GRAM STAIN RESULT Few white blood cells. [facility] GRAM STAIN RESULT [facility] GRAM STAIN RESULT Few gram negative rods. TB 12/06/2024 1:14 PM EDT 12/06/2024 2:41 PM EDT Narrative CLINISYNC - 01/01/2025 4:07 PM EDT us Generic External Data Provider LAB BLOOD ORDERAB LES Final Result Performing Organization Address [facility] de Phone Number CLINFABIENID TB * FUNGUS STAIN (12/06/2024 1:14 PM EDT) FUNGUS STAIN Fungus Stain TB FUNGUS STAIN AURELIA/Calcofl uor preparation : no fungus observed. [facility] 12/06/2024 1:14 PM EDT 12/06/2024 2:41 PM EDT Narrative [facility] - 01/04/2025 12:09 PM EDT Generic External Data Provider LAB BLOOD ORDERAB LES Final Result Performing Organization Address [facility] Phone Number [facility] * ACID FAST CULTURE (12/06/2024 1:14 PM EDT) ACID FAST CULTURE Acid Fast Culture Specimen has been received and testing has been initiated. [facility] ACID FAST CULTURE Negative TB ACID FAST CULTURE No acid fast bacilli isolated after 6 weeks. TB ACID FAST CULTURE Performed at: [facility] TB ACID FAST CULTURE [address] [place], [place] [id number] [facility] ACID FAST CULTURE Tank Furnace Operator: Stephane Terrazas PhD, Phone: [phone] [facility] 12/06/2024 1:14 PM EDT 12/06/2024 2:41 PM EDT Narrative [facility] - 01/19/2025 8:09 AM EDT Generic External Data Provider LAB BLOOD ORDERAB LES Final Result Performing Organization Address [facility] de Phone Number CL[facility]ABIENID TB * FUNGUS (MYCOLOGY) CULTURE (12/06/2024 1:14 PM EDT) FUNGUS (MYCOLOGY) CULTURE Fungus (Mycology) Culture TB FUNGUS (MYCOLOGY) CULTURE Culture Report: TB FUNGUS (MYCOLOGY) CULTURE The specimen submitted for fungus culture has been received and TB FUNGUS (MYCOLOGY) CULTURE culture has been initiated. TB FUNGUS (MYCOLOGY) CULTURE No yeast or mold isolated after 4 weeks. TB FUNGUS (MYCOLOGY) CULTURE [facility]formed [facility]: [facility] FUNGUS (MYCOLOGY) CULTURE [address], [place] [id number] [facility] FUNGUS (MYCOLOGY) CULTURE Tank Furnace Operator: Stephane Terrazas PhD, Phone: [phone] [facility] 12/06/2024 1:14 PM EDT 12/06/2024 2:41 PM EDT Narrative [facility] - 01/04/2025 12:09 PM EDT Generic External Data Provider LAB BLOOD ORDERAB LES Final Result Performing Organization Address City/[facility]/ZIP Co de Phone Number [facility] * ACID FAST SMEAR (12/06/2024 1:14 PM EDT) Pathologist [facility] ACID FAST SMEAR Acid Fast Smear Negative [facility] 12/06/2024 1:14 PM EDT 12/06/2024 2:41 PM EDT Narrative [facility] - 01/19/2025 8:09 AM EDT [facility] External Data Provider LAB BLOOD ORDERAB LES Final Result Performing Organization Address [facility] Co de Phone Number [facility] * AFB SPECIMEN PROCESSING (12/06/2024 1:14 PM EDT) Pathologist [facility] AFB SPECIMEN PROCESSING AFB Specimen Processing [facility] AFB SPECIMEN PROCESSING Tissue Grinding [facility] 12/06/2024 1:14 PM EDT 12/06/2024 2:41 PM EDT Narrative [facility] - 01/19/2025 8:09 AM EDT Generic External Data Provider LAB BLOOD ORDERAB LES Final Result Performing Organization Address City/[facility] Co de Phone Number [facility] * (ABNORMAL) ALL CBC WITH AUTO DIFF (12/06/2024 10:46 AM EDT) Pathologist [facility] WBC 10.3 4.0 - 11.0 10 3/uL TB TB RBC 5.17 4.20 - 5.40 10 6/uL [facility]H TBH HGB 15.2 12.0 - 16.0 g/dL [facility] TBH HCT 47.2 36.0 - 48.0 % [facility]H [facility] MCV 91.3 81.0 - 99.0 fL TBH TBH MCH 29.4 26.7 - 34.0 pg TBH TBH MCHC 32.2 29.9 - 35.2 g/dL TBH TBH RDW 16.8(H) 11.0 - 15.0 % TBH TBH PLT 292 150 - 450 10 3/uL TBH TBH MPV 11.7 9.5 - 13.5 fL TBH NEUTROPHILS PERCENT AUTO 75.6(H) 43.0 - 75.0 % TBH LYMPHOCYTES PERCENT AUTO 14.5(L) 20.5 - 60.0 % [facility]H MONOCYTES PERCENT AUTO 5.3 1.7 - 12.0 % [facility]H [facility]H EO % 3.4 0.9 - 7.0 % [facility] BASOPHILS PERCENT AUTO 0.8 0.2 - 2.0 % [facility]H IMMATURE GRANULOCYTES PCT AUTO 0.4 0.0 - 0.5 % TBH NEUTROPHILS ABSOLUTE AUTO 7.8(H) 1.4 - 6.5 10 3/uL TBH LYMPHOCYTES ABSOLUTE AUTO 1.5 1.2 - 3.8 10 3/uL TBH MONOCYTES ABSOLUTE AUTO 0.6 0.3 - 0.8 10 3/uL TBH TBH EO # 0.4 0.0 - 0.7 10 3/uL TBH BASOPHILS ABSOLUTE AUTO 0.1 0.0 - 0.1 10 3/uL TBH IMMATURE GRANULOCYTES ABS AUTO 0.04(H) 0.00 - 0.03 10 3/uL [facility] 12/06/2024 10:4 6 AM EDT 12/06/2024 10:48 AM EDT Narrative [facility] - 12/06/2024 10:51 AM EDT us Generic External Data Provider [facility] F inal Result [facility] * CT lower extremity right wo IV contrast (12/05/2024 2:22 PM EDT) Anatomical Region Laterality Modality Lower Extremities Right Computed Tomog jimi 12/05/2024 2:22 PM EDT Narrative 12/05/2024 2:24 PM EDT [facility] [place] [id number] CT Scan Report Signed Patient: MONICA ACOSTA MR#: [id number] : 1960 Acct:[id number] Age/Sex: 63 / F ADM Date: 12/05/24 Loc: CT Attending Dr: Radha Montoya D.P.M. Ordering Physician: Radha Montoya D.P.M. Date of Service: 12/05/24 Procedure(s): CT lower leg RT wo con Accession Number(s): [id number] cc: Rudolph Peter M.D. [facility] [place] [address] Patient Name: MONICA ACOSTA MRN: [id number] date: 1960 Sex: F Assigned Patient Location: CT Current Patient Location: [facility] Accession/Order Number: [id number] Exam Date: 12/05/2024 14:10 Report Date: 12/05/2024 14:22 At the request of: RADHA MONTOYA DPePtra Procedure: CT lower leg RT wo con CT of the right lower leg without contrast TECHNIQUE: The CT exam was performed using one or more the following dose reduction techniques: Automated exposure control, adjustment of the MA and/or Kv according to patient size, or use of the iterative reconstruction technique. COMPARISON: Plain film imaging 11/21/2024 demonstrating posttraumatic changes. No evidence of osteomyelitis. History of wound involving the distal aspect of the right tibia and fibula for 2 months duration. Additional history of bone sticking out of the region of the wound. HISTORY: History of the above No skin marker identified. Plain film demonstrates skin marker in the anterior lower tibia. There is a region of 5 bony prominence/soft tissue calcification in the anterior portion of the distal tibia adjacent to soft tissue wound. This area is appears be well-defined. There is no acute bony destruction present. There is adjacent cortical defect in this region. 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 Lucency extends to the intramedullary dwaine. This is in the region of heel/healing fracture of the distal tibia. the intramedullary fixation hardware is intact. The support screws are intact. No subcutaneous air. No identifiable soft tissue abscess. Healed/healing distal fibular shaft fracture. CT/CT lower leg RT wo con IMPRESSION: Findings likely representing 2 cm bony sequestration in the anterior portion of the distal tibia associated with the region of soft tissue wound. Impression dictated by: Solo Hill M.D.12/05/2024 2:22 PM Dictation Location: [place] [address] Electronically authenticated by: [id number] Y Date: 12/05/2024 14:22 Dictated By: Solo Hill D.O. Signed By: 12/05/24 1424 DD/ 142 TD/TT: Comber Setter: Procedure Note Radiology, Radiologist, MD - 12/06/2024 [place] [address] CT Scan Report Signed Patient: MONICA ACOSTA LMR#: [id number] : 1960Acct:[id number] Age/Sex: 63 / FADM Date: 12/05/24 Loc: CT Attending Dr: Radha Montoya D.P.M. Ordering Physician: Radha Montoya D.P.M. Date of Service: 12/05/24 Procedure(s): CT lower leg RT wo con Accession Number(s): [id number] cc: Rudolph Peter M.D. [facility] [place] [id number] Patient Name: MONICA ACOSTA MRN: [id number] date: 1960 Sex: F Assigned Patient Location: CT Current Patient Location: [facility] Accession/Order Number: [id number] Exam Date: 12/05/2024 14:10 Report Date: 12/05/2024 14:22 At the request of: RADHA MONTOYA DPM Procedure: CT lower leg RT wo con CT of the right lower leg without contrast TECHNIQUE: The CT exam was performed using one or more the following dose reduction techniques: Automated exposure control, adjustment of the MAand/or Kv according to patient size, or use of the iterative reconstruction technique. COMPARISON: Plain film imaging 11/21/2024 demonstrating posttraumaticchanges. No evidence of osteomyelitis. History of wound involving the distalaspect of the right tibia and fibula for 2 months duration. Additional history ofbone sticking out of the region of the wound. HISTORY: History of the above No skin marker identified. Plain film demonstrates skin marker in the anterior lower tibia. There is a region of 5 bony prominence/soft tissue calcification in the anterior portion of the distal tibia adjacent to soft tissue wound. This area is appears be well-defined. There is no acutebony destruction present. There is adjacent cortical defect in this region. 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 Lucency extends to the intramedullary dwaine. This is in the region of heel/healing fracture of the distal tibia. the intramedullary fixation hardware is intact. The support screws are intact. No subcutaneous air.No identifiable soft tissue abscess. Healed/healing distal fibular shaft fracture. CT/CT lower leg RT wo con IMPRESSION: Findings likely representing 2 cm bony sequestration in the anterior portion of the distal tibia associated with the region of softtissue wound. Impression dictated by: Solo Hill M.D.12/05/2024 2:22 PM Dictation Location: [place] [address] Electronically authenticated by: [id number] Y Date: 4:22 Dictated By: Solo Hill D.O. Signed By:12/05/24 1424 DD/ 1422 TD/TT: Comber Setter: Generic External Data Provider IMG CT PROCEDURES Final Result * CA ECHO DOPPLER COMPLETE (12/03/2024 7:51 PM EDT) Anatomical Region Laterality Modality Other 12/03/2024 7:51 PM EDT Narrative 12/03/2024 7:52 [place] [address] Cardiology Report Signed Patient: MONICA ACOSTA MR#: [id number] : 1960 Acct:[id number] Age/Sex: 63 / F ADM Date: 12/03/24 Loc: CARD Attending Dr: TY COREA Ordering Physician: TY COREA Date of Service: 12/03/24 Procedure(s): CA echo doppler complete Accession Number(s): [id number] cc: TY COREA; Rudolph Peter M.D. Patient Name: MONICA ACOSTA MR#: [id number] : 1960 Exam Date: 12/03/2024 Ordering Doctor: DR TY COREA M.D. ECHOCARDIOGRAM REPORT PROCEDURE: CA ECHO DOPPLER COMPLETE INDICATIONS: Preop, shortness of breath, CABGx3, diabetes COMPARISON: None. DESCRIPTION: COMPLETE ECHOCARDIOGRAM Real-time transthoracic echocardiography with 2D, M-mode, spectral and color flow Doppler performed. QUALITY: Technical quality was good. LEFT VENTRICLE: Normal chamber size. Abnormal septal motion due to prior open heart surgery. Systolic function is normal. LV EF: Normal left ventricular ejection fraction, (55-60%). DIASTOLIC: Normal diastolic function. ATRIAL SEPTUM: LEFT ATRIUM: Normal chamber size. RIGHT ATRIUM: Normal chamber size. RIGHT VENTRICLE: Normal chamber size. Mildly reduced right ventricular systolic function. TRICUSPID VALVE: Normal mobility and thickness. No stenosis with trivial regurgitation. Doppler studies reveal mildly (35-45) elevated right sided pressures. RVSP 36 mmHg MITRAL VALVE: Normal mobility and thickness. No evidence of mitral valve stenosis. Mild mitral annular calcification. No mitral regurgitation. AORTIC VALVE: Normal trileaflet appearance. No visible sclerosis. Normal leaflet mobility. No evidence of aortic valve stenosis. No aortic regurgitation. AORTIC ROOT: Normal diameter and appearance, measuring 2.6 cm. PULMONIC VALVE: Normal thickness and mobility. No stenosis. PERICARDIUM: No evidence of pericardial effusion. IVC: Not well visualized. PLEURA: CONCLUSION: 1. Normal left ventricular size and systolic function. Estimated LVEF is 55 to 60%. 2. Normal right ventricular size with mildly reduced systolic function. 3. No significant valvular dysfunction. 4. Mildly elevated right-sided pressures. 5. No pericardial effusion. Adult Echocardiography Procedure Report Left Ventricle LVEDD (3.7 - 5.6 cm): 2.97 cm LVESD (2.2 - 4.0 cm): 2.28 cm LVIVS thickness (0.6 - 1.2 cm): 0.80 cm LVPW thickness (0.5 - 1.0 cm): 0.77 cm e': 0.10 m/s E - e': 4.93 LVOT Max Gradient: 2.26 mm[Hg] LVOT Area (cm2): 0.75 m/s Peak Velocity (LVOT): 0.75 m/s Mean Velocity (LVOT): 0.50 m/s LVOT Diameter 1.97 cm Left Atrium LA Volume Index (2D A2C): 21.16 ml/m2 Left Atrium Systolic Dimension: 3.13 cm Mitral Valve MV E to A Ratio: 0.63 Mitral Valve A-Wave Peak Velocity: 0.80 m/s Mitral Valve E-Wave Peak Velocity: 0.51 m/s Right Ventricle Aorta AO Root Diam: 2.57 cm Aortic Valve AoV Area (Peak Pawel): 1.85 cm2, 1.85 cm2 AoV Area (VTI): 2.14 cm2, 2.14 cm2 Peak Velocity(Antegrade Flow): 1.23 m/s Peak Gradient(Antegrade Flow): 6.10 mm[Hg] Mean Velocity(Antegrade Flow): 0.85 m/s Mean Gradient(Antegrade Flow): 3.21 mm[Hg] Velocity Time Integral: 23.52 cm Tricuspid Valve Peak Velocity (Regurgitant Flow): 2.85 m/s Pulmonic Valve Mean Gradient: 1.71 mm[Hg] Mean Velocity: 0.61 m/s Peak Velocity: 0.91 m/s, 0.82 m/s Peak Gradient: 2.66 mm[Hg], 3.31 mm[Hg] Right Atrium Right Atrium Systolic Pressure: 23.34 ml, 23.34 ml Dictated by: Ty Corea M.D. on 12/03/2024 at 19:48 Approved by: Ty Corea M.D. on 12/03/2024 at 19:51 Dictated By: TY COREA Signed By: 12/03/241951 DD/ 50 TD/TT: Comber Setter: Procedure Note Radiology, Radiologist, MD - 12/03/2024 [facility] [place] [id number] Cardiology Report Signed Patient: MONICA ACOSTA LMR#: [id number] : 1960Acct:[id number] Age/Sex: 63 / FADM Date: 12/03/24 Loc: CARD Attending Dr: TY COREA Ordering Physician: TY COREA Date of Service: 12/03/24 Procedure(s): CA echo doppler complete Accession Number(s): [id number] cc: TY COREA; Rudolph Peter M.D. Patient Name: MONICA ACOSTA MR#: [id number] : 1960 Exam Date: 12/03/2024 Ordering Doctor: DR TY COREA M.D. ECHOCARDIOGRAM REPORT PROCEDURE: CA ECHO DOPPLER COMPLETE INDICATIONS: Preop, shortness of breath, CABGx3, diabetes COMPARISON: None. DESCRIPTION: COMPLETE ECHOCARDIOGRAM Real-time transthoracic echocardiography with 2D, M-mode, spectral and color flow Dopplerperformed. QUALITY: Technical quality was good. LEFT VENTRICLE: Normal chamber size. Abnormal septal motion due toprior open heart surgery. Systolic function is normal. LV EF: Normal left ventricular ejection fraction, (55-60%). DIASTOLIC: Normal diastolic function. ATRIAL SEPTUM: LEFT ATRIUM: Normal chamber size. RIGHT ATRIUM: Normal chamber size. RIGHT VENTRICLE: Normal chamber size. Mildly reduced rightventricular systolic function. TRICUSPID VALVE: Normal mobility and thickness. No stenosis withtrivial regurgitation. Doppler studies reveal mildly (35-45) elevated right sided pressures. RVSP 36 mmHg MITRAL VALVE: Normal mobility and thickness. No evidence of mitralvalve stenosis. Mild mitral annular calcification. No mitral regurgitation. AORTIC VALVE: Normal trileaflet appearance. No visible sclerosis.Normal leaflet mobility. No evidence of aortic valve stenosis. No aortic regurgitation. AORTIC ROOT: Normal diameter and appearance, measuring 2.6 cm. PULMONIC VALVE: Normal thickness and mobility. No stenosis. PERICARDIUM: No evidence of pericardial effusion. IVC: Not well visualized. PLEURA: CONCLUSION: 1. Normal left ventricular size and systolic function. Estimated LVEF is55 to 60%. 2. Normal right ventricular size with mildly reduced systolic function. 3. No significant valvular dysfunction. 4. Mildly elevated right-sided pressures. 5. No pericardial effusion. Adult Echocardiography Procedure Report Left Ventricle LVEDD (3.7 - 5.6 cm): 2.97 cm LVESD (2.2 - 4.0 cm): 2.28 cm LVIVS thickness (0.6 - 1.2 cm): 0.80 cm LVPW thickness (0.5 - 1.0 cm): 0.77 cm e': 0.10 m/s E - e': 4.93 LVOT Max Gradient: 2.26 mm[Hg] LVOT Area (cm2): 0.75 m/s Peak Velocity (LVOT): 0.75 m/s Mean Velocity (LVOT): 0.50 m/s LVOT Diameter 1.97 cm Left Atrium LA Volume Index (2D A2C): 21.16 ml/m2 Left Atrium Systolic Dimension: 3.13 cm Mitral Valve MV E to A Ratio: 0.63 Mitral Valve A-Wave Peak Velocity: 0.80 m/s Mitral Valve E-Wave Peak Velocity: 0.51 m/s Right Ventricle Aorta AO Root Diam: 2.57 cm Aortic Valve AoV Area (Peak Pawel): 1.85 cm2, 1.85 cm2 AoV Area (VTI): 2.14 cm2, 2.14 cm2 Peak Velocity(Antegrade Flow): 1.23 m/s Peak Gradient(Antegrade Flow): 6.10 mm[Hg] Mean Velocity(Antegrade Flow): 0.85 m/s Mean Gradient(Antegrade Flow): 3.21 mm[Hg] Velocity Time Integral: 23.52 cm Tricuspid Valve Peak Velocity (Regurgitant Flow): 2.85 m/s Pulmonic Valve Mean Gradient: 1.71 mm[Hg] Mean Velocity: 0.61 m/s Peak Velocity: 0.91 m/s, 0.82 m/s Peak Gradient: 2.66 mm[Hg], 3.31 mm[Hg] Right Atrium Right Atrium Systolic Pressure: 23.34 ml, 23.34 ml Dictated by: Ty Corea M.D. on 12/03/2024 at 19:48 Approved by: Ty Corea M.D. on 12/03/2024 at 19:51 Dictated By: TY COREA Signed By:12/03/241951 DD/ 50 TD/TT: Comber Setter: Generic External Data Provider [facility] IMAGING Final Result * [facility] PROTHROMBIN TIME INR W/O COUM (11/30/2024 3:10 PM EDT) PROTHROMBIN TIME 10.8 9.0 - 11.6 sec TBH TBH INR 1.02 TBH Comment: DESIRED INR: 2.0-3.0 CONDITIONS NOT LISTED BELOW 2.5-3.5 FOR PROSTHETIC HEART VALVE REPLACEMENT 2.5-3.5 RECURRENT THROMBOSIS 11/30/2024 3:10 PM EDT 11/30/2024 3:16 PM EDT Narrative [facility] - 11/30/2024 3:46 PM EDT Generic External Data Provider [facility] F inal Result Performing Organization Address City/[facility]/ZIP Co de Phone Number [facility] * CCF APTT (11/30/2024 3:10 PM EDT) PARTIAL THROMBOPLASTIN TIME 25.1 22.3 - 36.2 sec TB 11/30/2024 3:10 PM EDT 11/30/2024 3:16 PM EDT Narrative [facility] - 11/30/2024 3:46 PM EDT Generic External Data Provider [facility] F inal Result Performing Organization Address City/[facility]/ZIP Co de Phone Number [facility] TB * XR bone survey limited (11/20/2024 11:55 AM EDT) Anatomical Region Laterality Modality Body, Upper Extremities, Low er Extremities, Spine, Head, Neck Radiographic Imaging Rudolph Peter MD IMG XR PROCEDURES Final Result * XR chest 2 views (11/20/2024 8:54 AM EDT) Anatomical Region Laterality Modality Chest Radiographic Caro ging Rudolph Peter MD IMG XR PROCEDURES Final Result * TSH ([facility]) (11/19/2024 2:37 PM EDT) TSH 3.01 0.49 - 4.67 uIU/mL [facility] Comment: PERFORMED AT [facility] [address],[place] [address] The copy-to physician of this order is RUDOLPH Salas ; , ; The ordering physician of this order is COLLIN Ricci 11/19/2024 2:37 PM EDT 11/19/2024 2:38 PM EDT us Generic External Data Provider LAB BLOOD ORDERAB LES Final Result [facility] * (ABNORMAL) CBC auto differential (11/19/2024 2:37 PM EDT) WHITE BLOOD CELL COUNT, WBC 7.8 4.0 - 11.0 X10E9/L [facility] RED BLOOD CELL COUNT, RBC 4.89 3.80 - 5.20 X10E12/L [facility] HEMOGLOBIN 14.6 11.7 - 15.5 g/dL [facility] HEMATOCRIT 43.6 35 - 47 % [facility] MEAN CELL VOLUME, MCV 89 80 - 100 fL [facility] MEAN CELL HEMOGLOBIN, MCH 29.8 27 - 34 pg [facility] MEAN CELL HEMOGLOGIN CONCENTRATION, MCHC 33.5 32 - 36 g/dL [facility] RED CELL DISTRIBUTION WIDTH, RDW 19.0(H) 11.5 - 15.0 % [facility] PLATELET COUNT 262 150 - 450 X10E9/L [facility] MEAN PLATELET VOLUME, MPV 9.6 7 - 12 fL [facility] % NEUTROPHILS 74.5 % [facility] % LYMPHOCYTES 14.2 % [facility] % MONOCYTES 6.2 % [facility] % EOSINOPHILS 3.6 % [facility] % BASOPHILS 1.5 % [facility] ABSOLUTE NEUTROPHIL 5.8 1.5 - 6.6 X10E9/L [facility] ABSOLUTE LYMPHOCYTE 1.1 1.0 - 3.5 X10E9/L [facility] ABSOLUTE MONOCYTE 0.5 0 - 0.9 X10E9/L [facility] ABSOLUTE EOSINOPHIL 0.3 0.0 - 0.4 X10E9/L [facility] ABSOLUTE BASOPHIL 0.1 0.0 - 0.2 X10E9/L [facility] Comment: PERFORMED AT [address], [place] [address] The copy-to physician of this order is RUDOLPH Salas ; , ; The ordering physician of this order is COLLIN Ricci 11/19/2024 2:37 PM EDT 11/19/2024 2:38 PM EDT Generic External Data Provider LAB BLOOD ORDERAB LES Final Result Performing Organization Address [facility] Co de Phone Number [facility] * (ABNORMAL) Cyclic citrul peptide antibody, IgG (11/19/2024 2:37 PM EDT) CCP ANTIBODY 16.3(H) <3.0 U/ML [facility] Comment: Interpretation-------- <3 Negative >=3 Positive PERFORMED AT [address], [place] [address] The copy-to physician of this order is RUDOLPH Salas ; , ; The ordering physician of this order is COLLIN Ricci 11/19/2024 2:37 PM EDT 11/19/2024 2:38 PM EDT Generic External Data Provider LAB BLOOD ORDERAB LES Final Result [facility] * Vitamin D 25 hydroxy Total (11/19/2024 2:37 PM EDT) VITAMIN D 25 HYD TOT 55.1 30 - 100 ng/mL [facility] Comment: Vitamin D status 25 [place] Vitamin D Deficiency <20 ng/mL Insufficiency 20-29 ng/mL Sufficiency 30-100 ng/mL Toxicity >100 ng/mL NOTE: A pediatric reference range has not been established by the hospital carrier of this kit. The [place] [employer] recommends a Vitamin D level of = or >20ng/mL in infants and children. PERFORMED AT [address], [place] [address] The copy-to physician of this order is RUDOLPH Salas ; , ; The ordering physician of this order is COLLIN Ricci 11/19/2024 2:37 PM EDT 11/19/2024 2:38 PM EDT Generic External Data Provider LAB BLOOD ORDERAB LES Final Result Performing Organization Address City/[facility]/ZIP Co de Phone Number [facility] * Sedimentation rate, automated (11/19/2024 2:37 PM EDT) ESR 29 0 - 30 mm/h [facility] Comment: PERFORMED AT [address], [place] [address] The copy-to physician of this order is RUDOLPH Salas ; , ; The ordering physician of this order is COLLIN Ricci 11/19/2024 2:37 PM EDT 11/19/2024 2:38 PM EDT us Generic External Data Provider LAB BLOOD ORDERAB LES Final Result [facility] * (ABNORMAL) Rheumatoid factor (11/19/2024 2:37 PM EDT) RHEUMATOID FACTOR 54(H) <20 IU/mL [facility] Comment: PERFORMED AT [address], [place] [address] The copy-to physician of this order is RUDOLPH Salas ; , ; The ordering physician of this order is COLLIN Ricci 11/19/2024 2:37 PM EDT 11/19/2024 2:38 PM EDT us Generic External Data Provider LAB BLOOD ORDERAB LES Final Result Performing Organization Address [facility] Co de Phone Number [facility] * C-reactive protein (11/19/2024 2:37 PM EDT) Pathologist [facility] C REACTIVE PROTEIN 0.5 0.000 - 0.744 mg/dL [facility] Comment: PERFORMED AT [address], [place] [address] The copy-to physician of this order is RUDOLPH Salas ; , ; The ordering physician of this order is COLLIN Ricci 11/19/2024 2:37 PM EDT 11/19/2024 2:38 PM EDT Generic External Data Provider LAB BLOOD ORDERAB LES Final Result Performing Organization Address [facility] Phone Number [facility] * Vitamin B12 (11/19/2024 2:37 PM EDT) [facility] VITAMIN B12 279 180 - 914 pg/mL [facility] Comment: PERFORMED AT [address], [place] [address] The copy-to physician of this order is RUDOLPH Salas ; , ; The ordering physician of this order is COLLIN Ricci 11/19/2024 2:37 PM EDT 11/19/2024 2:38 PM EDT us Generic External Data Provider LAB BLOOD ORDERAB LES Final Result Performing Organization Address City/[facility] Co de Phone Number [facility] * (ABNORMAL) Comprehensive metabolic panel (11/19/2024 2:37 PM EDT) Sodium 135 134 - 146 mmol/L [facility] Potassium, Bld 5.0 3.5 - 5.0 mmol/L [facility] Chloride 99 98 - 109 mmol/L [facility] Carbon Dioxide 24 22 - 32 mmol/L [facility] Anion Gap 12 5 - 15 mmol/L [facility] BUN 25 5 - 27 mg/dL [facility] Creatinine 1.24(H) 0.40 - 1.00 mg/dL [facility] Comment:METHOD TRACEABLE TO IDMS STANDARD Glucose 189(H) 65 - 99 mg/dL [facility] Calcium 10.1 8.5 - 10.5 mg/dL [facility] TOTAL PROTEIN 7.9 6.0 - 8.0 g/dL [facility] ALBUMIN 4.1 3.2 - 5.3 g/dL [facility] ALKALINE PHOSPHATASE 154(H) 39 - 130 U/L [facility] AST 28 0 - 41 U/L [facility] ALT 19 0 - 31 U/L [facility] TOTAL BILIRUBIN 0.4 0.3 - 1.2 mg/dL [facility] EGFR 49(L) >59 ml/min/1.7 3sq.m [facility] Comment: Reported eGFR is based on the CKD-EPI 2020 equation that does not use a race coefficient. PERFORMED AT [facility] [address],[place] [address] The copy-to physician of this order is RUDOLPH Salas ; , ; The ordering physician of this order is COLLIN Ricci 11/19/2024 2:37 PM EDT 11/19/2024 2:38 PM EDT us Generic External Data Provider LAB BLOOD ORDERAB LES Final Result [facility] from Last 3 Months Insurance [employer] MED[employer]ARE [employer]VANTAGE MEDICAID [place] Care Teams Patient Service Specialist Relationship Specialty Start Date End Date Rudolph Peter MD [address] [place] [phone] PCP - General Family Medicine 09/19/24
== END 2025-02-13 10:44 | disposition home or self-care (01) ==
LOC: WC 10:43
PROVIDERS: PCP Family Medicine; Visit Provider Physician Assistant
DX: L89.610 Pressure ulcer of right heel, unstageable (principal); L97.814 Non-pressure chronic ulcer of other part of right lower leg with necrosis of bone
CPT/HCPCS: G0463

== ENCOUNTER 2025-05-07 13:08 | Outpatient (OUT) | payer MEDICARE, MEDICAID, SELFPAY ==
--- OUTSIDE RECORDS SUMMARY | 2025-05-07 13:32 | XMS_ITS | CCD ---
Author Organization [facility] Care Team Providers Care Javascript Programmer Name Role Phone SELF, REFERRED Referring Unavailable YISEL, ALEXANDER Admitting Unavailable ELGAFY CHILANGO K Surgeon Unavailable DIONNE HYATT Attending Unavailable MA Procedure Practitioner Unavailab le UNKNOWN, PHYSICIAN Primary Care Unavailable SELF, REFERRED Referring Unavailable SELF, REFERRED Primary Care Unavailable ELGAFY, CHILANGO K Attending Unavailable ELGAFLexy CHILANGO K Admitting Unavailable Veronica Mcneill Unavailable [...] FURLONG, DR ZEN Reinoso Primary Care Unavailable ROUND [place], DR ANN García Consulting Unavailable HIGHLANDER, RADHA Nogueira Consulting Unavailable HIGHLANDER, RADHA Nogueira Admitting Unavailable HIGHLANDER, RADHA Nogueira Attending Unavailable FURLONG, DR ZEN Reinoso Primary Care Unavailable HIGHLANDER, ARDHA Nogueira Admitting Unavailable HIGHLANDER, RADHA Nogueira Attending [...] Admitting Unavailable HIGHLCHRISTINA, RADHA Nogueira Attending Unavailable FURTHAO, DR ZEN Reinoso Primary Care Unavailable HIGHLANDER, [...] Unavailable Furlong Zen SHAVER Primary Care Provider Rudolph Hurt MD Primary Care Provider Chantallong DO Zen G Primary Care Provider Rudolph Hurt MD Primary Care Provider DEMETRA PORTER Referring Unavailable FURLONG, ZEN Reinoso Primary Care Unavailable FURLONG, ZEN Kemar Referring Unavailable FURLONG, ZEN Reinoso Primary Care Unavailable FURLONG, ZEN G Referring Unavailable FURLONG, ZEN Reinoso Primary Care Unavailable FURLONG, ZEN Kemar Referring Unavailable FURLONG, ZEN Kemar Primary Care Unavailable SABA, COLLIN Attending Unavailable RUDOLPH HURT Referring Unavailable NADERER, RUDOLPH Primary Care Unavailable SABA, COLLIN Referring Unavailable NADERER, RUDOLPH Primary Care Unavailable SABA, COLLIN Referring Unavailable RUDOLPH HURT Primary Care Unavailable Furlong DO Zen Primary Care Provider Radha Brannon DPM Attending Provider [phone] SHENDGE, VITHAL Referring Unavailable SHENDGE, VITHAL Referring Unavailable SHENDGE, VITHAL Referring Unavailable SHENDGE, VITHAL Attending Unavailable SHENDGE, KARLHAL Attending Unavailable STEENHOFF, ISIDRO Referring Unavailable JULIO CESAR GARDNER Referring Unavailable DONNA WONG Attending Unavailable NUNU HI Admitting Unavailable TY CARTER Attending Unavailable SHENDGE, VITHAL Attending Unavailable CORTNEY HOLDEN Referring Unavailable AUTUMN SCHWARZ Referring Unavailable ANTONIO SEAY Referring Unavailable SHENDGE, VITHAL Referring Unavailable PEREZ, BROOKE Referring Unavailable SHENDGE, VITHAL Referring Unavailable PEREZ, BROOKE Referring Unavailable STEENHOFF, ISIDRO Referring Unavailable SHENDGE, VITHAL Attending Unavailable SHENDGE, VITHAL Attending Unavailable SHENDGE, VITHAL Referring Unavailable SHENDGE, VITHAL Referring Unavailable STEENHOFF, ISIDRO Referring Unavailable SHENDGE, VITHAL Referring Unavailable Rahda Brannon Attending Unavailable Radha Brannon Admitting Unavailable MichiZen burns Primary Care Unavailable Silvia Blank APRN Attending Provider [phone] Rudolph Hurt MD Primary Care Provider [phone] RUDOLPH HURT Attending Unavailable SRIRAM, AHMAD F Attending Unavailable SRIRAM, AHMAD F Referring Unavailable SRIRAM, AHMAD F Attending Unavailable SRIRAM, AHMAD F Referring Unavailable RUDOLPH HURT Attending Unavailable SANJEEV CHAIREZ Attending Unavailable RUDOLPH HURT Referring Unavailable RUDOLPH HURT Attending Unavailable RUDOLPH HURT Attending Unavailable Allergies Allergy Classification Reported Allergen(s) [...] sources) bee venom Drug allergy (disorder) [facility] Repository (4 sources) cilostazol; Translations: [CILOSTAZOL] Drug Allergy 0 [facility] (2 sources) Desonide Drug Allergy [facility] (4 sources) HYDROmorphone; Translations: [HYDROMORPHONE] Drug Allergy 0 [facility] (1 source) icosapent ethyl Drug Allergy [facility] Rep[facility] (20 sources) Adhesive agent; [...] (20 sources) Codeine Drug Allergy 0 Other [facility] (20 sources) Honey bee venom Propensity to adverse reactions 1 [facility] (20 sources) HYDROmorphone Drug Allergy 0 [facility] (20 sources) Lisinopril Allergy to substance 0 Other [facility] (20 sources) Morphine Drug Allergy 0 Other [facility] (20 sources) Wound Dressing Adhesive Drug Intolerance 1 [facility] (20 sources) cilostazol Drug Allergy 0 [facility] (20 sources) Lisinopril Drug Allergy 0 Rash [facility] Medications Current Medications Medication Drug Class(es) Dates Sig (Normalized) Sig (Original) acetaminophen 325 mg / HYDROcodone bitartrate 5 mg oral tablet (20 sources) Opioid Agonist Start: 03-14-2025 End: 03-29-2025 take 1 tablet by mouth four times daily as needed for pain HYDROcodone-aceta minophen ([place]) 5-325 MG tablet Indications: Rheumatoid arthritis involving multiple sites with positive rheumatoid factor (HCC) Take 1 tablet by mouth 4 (four) times a day as needed for severe pain for up to 15 days 60 tablet 03/14/2025 03/29/2025 Active Start: 12-27-2024 End: 03-05-2025 take 1 tablet by mouth four times daily as needed for pain HYDROcodone-acetaminophen ([place]) 5-325 MG tablet Indications: Rheumatoid arthritis involving multiple sites with positive rheumatoid factor (HCC) Take 1 tablet by mouth 4 (four) times a day as needed for severe pain for up to 7 days 28 tablet 02/26/2025 03/05/2025 Active Start: 12-03-2024 End: 12-10-2024 take 1 tablet by mouth four times daily as needed for pain HYDROcodone-acetaminophen ([place]) 5-325 MG tablet Indications: Rheumatoid arthritis involving multiple sites with positive rheumatoid factor (CMS/HCC) Take 1 tablet by mouth 4 (four) times a day as needed for severe pain for up to 7 days 28 tablet 12/03/2024 12/10/2024 Active Start: 11-12-2024 End: 11-19-2024 take 1 tablet by mouth four times daily as needed for pain HYDROcodone-acetaminophen ([place]) 5-325 MG tablet Indications: Rheumatoid arthritis involving multiple sites with positive rheumatoid factor (CMS/HCC) Take 1 tablet by mouth 4 (four) times a day as needed for severe pain for up to 7 days 28 tablet 11/12/2024 11/19/2024 Active Start: 10-19-2024 End: 10-26-2024 take 1 tablet by mouth four times daily as needed for pain HYDROcodone-acetaminophen ([place]) 5-325 MG tablet Indications: Rheumatoid arthritis involving multiple sites with positive rheumatoid factor (CMS/HCC) Take 1 tablet by mouth 4 (four) times a day as needed for severe pain for up to 7 days 28 tablet 10/19/2024 10/26/2024 Active Start: 09-19-2024 End: 09-26-2024 take 1 tablet by mouth four times daily as needed for pain HYDROcodone-acetaminophen ([place]) 5-325 MG tablet Indications: Rheumatoid arthritis involving multiple sites with positive rheumatoid factor (CMS/HCC) Take 1 tablet by mouth 4 (four) times a day as needed for severe pain for up to 7 days 28 tablet 09/19/2024 09/26/2024 Active Start: 03-29-2024 take 1 tablet by nguyen once daily in the morning HYDROcodone-acetaminophen ([place]) [...] present (CMS-HCC) Take 1 tablet by mouth 2 (two) [...] MG tablet 09/19/2024 Discontinued HYDROcodone-Acet aminophen Active [id number] 200 actuat albuterol 0.09 mg/actuat metered dose inhaler (20 sources) beta2-Adrenergic Agonist Start: 01-15-2025 take 2 puff(s) by inhalation every four hours for wheezing albuterol HFA 90 mcg/act inhaler Indications: SOB (shortness of breath) on exertion Inhale 2 puffs every 4 (four) hours if needed for shortness of breath or wheezing 18 g 2 01/15/2025 Active Start: 07-27-2021 take 2 puff(s) by in halation every four to six hours as needed [...] Anti-inflammatory Drug take 1 tablet by mouth once daily aspirin 81 MG EC tablet Take 81 mg by mouth Daily Active take 81 mg by mouth once daily B SATHISH ASPIRIN ORAL Take 81 mg by mouth daily. Active atenolol 50 mg oral tablet (20 sources) beta-Adrenergic Rakan Start: 06-17-2023 End: 01-29-2025 take 1 tablet by mouth in the morning atenolol (Tenormin) 50 MG tablet Indications: POTS (postural orthostatic tachycardia syndrome) TAKE 1 TABLET BY MOUTH IN THE MORNING 90 tablet 3 01/29/2025 Active Atenolol Active atorvastatin 80 mg oral tablet (20 sources) HMG-CoA Reductase Inhibitor Start: 05-17-2023 End: 02-25-2025 take 1 tablet by mouth once daily atorvastatin (Lipitor) 80 MG tablet Indications: Coronary artery disease involving [place] coronary artery of [place] heart without angina pectoris Take 1 tablet (80 mg) by mouth Daily 90 tablet 3 02/26/2025 Active Atorvastatin Cali cium Active benzonatate 100 [...] (20 sources) Nonsteroidal Anti-inflammatory Drug Start: 09-19-19 End: 03-14-20 take 1 capsule by mouth in the morning celecoxib (CeleBREX) 200 MG capsule Indications: Rheumatoid arthritis involving multiple sites with positive rheumatoid factor (HCC) Take 1 capsule (200 mg) by mouth in the morning and 1 capsule (200 mg) before bedtime. 180 capsule 3 03/14/2025 Active Start: 08-18-2023 End: 03-20-2024 take 1 [...] (5,000 unit) tablet 0 Active Continuous Glucose Barn Operator (FreeStyle Tru 14 Day [place]) device (6 sources) End: 09-19-2024 Continuous Glucose Barn Operator (FreeStyle Tru 14 Day [place]) device 09/19/2024 Discontinued Continuous Gluco se Barn Operator (FreeStyle Tru 14 Day [place]) device Active Continuous Glucose Sensor (FreeStyle Tru [...] and Norepinephrine Reuptake Inhibitor Start: 08-18-2023 End: 03-14-2025 take 1 capsule by mouth once daily DULoxetine (Cymbalta) [address] capsule Indications: MDD (major depressive disorder), recurrent episode, moderate (HCC) Take 1 capsule (30 mg) by mouth Daily Do not crush or chew. 30 capsule 5 03/14/2025 Active Start: 04-05-2023 End: 10-04-2025 take 1 capsule by mouth once daily DULoxetine (Cymbalta) [address] capsule Indications: Generalized anxiety disorder Take 1 capsule (60 mg) by mouth [...] 90 tablet 1 04/13/2024 04/13/2024 Discontinued (Error) FreeStyle Tru 14 Day Sensor (1 source) FreeStyle Tru 14 Day Sensor Active HYDROcodone bitartrate 7.5 mg / ibuprofen [...] injectable solution (20 sources) Insulin Analog Start: 03-11-2025 Insulin Aspart U-100 (Novolog U-100 Insulin Aspart) 100 unit/mL solution Active SUBCUT March 11, 2025 12:00am Complies with drug therapy Start: 08-21-2024 End: 11-19-2024 Insulin Aspart (NovoLOG) 100 UNIT/ML solution Indications: Type 1 diabetes mellitus with hyperglycemia (HCC) Inject 50 Units as directed Daily 60 [...] NovoLOG Active leflunomide 20 mg oral tablet (18 sources) Antirheumatic Agent Start: 11-19-2024 take 1 tablet by mouth in the morning leflunomide (ARAVA) 20 mg tablet Indications: Rheumatoid arthritis involving multiple sites, unspecified whether rheumatoid factor present ([facility]-HCC) Take 1 tablet (20 mg total) by mouth in the morning. 30 tablet 5 11/19/2024 Active take 1 tablet by nguyen once daily leflunomide (Arava) 10 MG tablet Take 10 mg by mouth Daily Active End: 09-19-2024 take 1 tablet by mouth once daily leflunomide (Arava) 20 MG tablet Take 20 mg by mouth Daily 09/19/2024 Discontinued Leflunomide Acti ve levothyroxine sodium 0.075 mg oral tablet (20 sources) l-Thyroxine Start: 09-24-2024 take 1 tablet by mouth before mealtime levothyroxine (Synthroid, Levoxyl) 75 MCG tablet Indications: Dyslipidemia Take 1 tablet (75 mcg) by mouth in the morning. Take before meals. 90 tablet 3 09/24/2024 Active take 1 tablet by mouth before me altime levothyroxine (Synthroid, Levoxyl) 75 MCG tablet Take 75 mcg by mouth in the morning. Take before meals. Active methocarbamol 500 mg oral tablet (20 sources) Muscle Relaxant Start: 09-24-2024 take 1 tablet by mouth every eight hours for muscle spasms methocarbamol (Robaxin) 500 MG tablet Indications: Rheumatoid arthritis involving multiple sites with positive rheumatoid factor (HCC) Take 1 tablet (500 mg) by mouth every 8 (eight) hours if needed for muscle spasms 90 tablet 09/24/2024 Active Start: 05-01-2024 methocarbamol (Robaxin) 500 MG tablet Take 500 mg by mouth in the morning and 500 mg at noon and 500 mg in the evening. 05/01/2024 Active midodrine hydrochloride 10 mg oral tablet [...] minutes if needed for chest pain Active ondansetron 4 mg oral tablet (6 [...] split.. 09/19/2024 Discontinued Pantoprazole Sod ium Active Completed/Discontinued Medications Medication Drug Class(es) Dates Sig (Normalized) Sig (Original) Finerenone (1 source) Start: 03-11-2025 End: 03-11-2025 Finerenone (Kerendia) 10 mg tablet Discontinued MG PO March 11, 2025 12:00am March 11, 2025 12:59pm folic acid 1 mg oral tablet (20 sources) Start: 09-19-2024 End: 03-14-2025 take 1 tablet by mouth once daily folic acid (Folvite) 1 MG tablet Indications: Rheumatoid arthritis involving multiple sites with positive rheumatoid factor (HCC) Take 1 tablet (1 mg) by mouth Daily 30 tablet 5 09/19/2024 03/14/2025 Discontinued Folic Acid Activ e gabapentin 100 mg oral capsule (20 sources) Anti-epileptic Agent Start: 04-13-2024 End: 03-14-2025 Gabapentin 100 mg capsule Discontinued MG PO March 11, 2025 12:00am March 11, 2025 12:59pm methotrexate 2.5 mg oral tablet (20 sources) Folate Analog Metabolic Inhibitor Start: 09-19-2024 End: 03-14-2025 take 4 tablets by mouth every week methotrexate 2.5 MG tablet Indications: Rheumatoid arthritis involving multiple sites with positive rheumatoid factor (HCC) 4 tabs PO once a week 16 tablet 5 09/19/2024 03/14/2025 Discontinued Problems Active Problems Problem Classification Problem Date [...] disease (20 sources) Atherosclerotic heart disease of [place] coronary artery without angina pectoris; Translations: [Coronary [...] unspecified; Translations: [VOMITING UNSPECIFIED] Onset: 08-18-2022 Episodic Nonspecific chest pain (16 sources) Chest pain, unspecified; Translations: [Other chest pain] Onset: 04-30-2022 Resolved: 03-14-2025 Episodic Nutritional deficiencies (20 sources) Vitamin D deficiency; Translations: [Vitamin D [...] Onset: 03-22-2022 Chronic Other aftercare (1 source) longterm (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; Translations: [HOOP COILER 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 INSULIN] Onset: 10-19-2022 Episodic Other aftercare (2 sources) Other halfway (current) drug therapy; Translations: [OTH LONGTERM CURRENT DRUG THERAPY] Onset: 10-19-2022 Episodic Other aftercare (1 source) parts counterman (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 aspirin; Translations: [LONGTERM 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 ASPIRIN] Onset: 08-18-2022 Episodic Other aftercare (1 source) Drug therapy finding; Translations: [Other halfway (current) drug therapy] 11-19-2024 Episodic Other aftercare (2 sources) Long-term current use of leflunomide; Translations: [Other parts counterman (current) drug therapy] Onset: 11-19-2024 11-19-2024 Episodic [...] [SHORTNESS OF BREATH] Onset: 05-04-2022 Episodic Other lower respiratory disease (10 sources) Dyspnea on exertion; Translations: [Shortness of breath] Onset: 01-15-2025 01-15-2025 Episodic Other nervous system disorders (5 sources) Unsteady when standing; Translations: [Unsteadiness on feet] Onset: 01-24-2025 01-24-2025 Episodic Peripheral and visceral atherosclerosis (20 sources) Peripheral vascular disease, unspecified; Translations: [Peripheral vascular disease, unspecified] Onset: 01-28-2022 09-19-2024 Chronic Residual codes; unclassified (18 sources) Hypersomnia; Translations: [Hypersomnia, unspecified] Onset: 12-10-2024 12-10-2024 Chronic Residual codes; unclassified (3 sources) Transient [...] Onset: 03-18-2022 Episodic Diabetes mellitus without complication (20 sources) Presence of insulin pump (external) (internal); [...] [DEPRESSION UNSPECIFIED] Onset: 07-12-2023 Resolved: 04-13-2024 07-12-2023 Open wounds of extremities (4 sources) Puncture wound without foreign body, left foot, initial encounter; Translations: [PUNCT WOUND W/O FB LT FOOT INITIAL] Onset: 10-27-2021 Episodic Other aftercare (2 sources) Encounter for therapeutic drug level monitoring; Translations: [Encounter for therapeutic drug level monitoring] Onset: 03-26-2024 Episodic Other aftercare (20 sources) Patient encounter status; Translations: [Dietary counseling and surveillance] Onset: 07-18-2024 Resolved: 09-19-2024 07-18-2024 Episodic Other aftercare (20 sources) Long-term current use of insulin; Translations: [longterm (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] Onset: 07-18-2024 07-18-2024 Episodic Other aftercare (20 sources) Long-term current use of drug therapy; Translations: [Other halfway (current) drug therapy] Onset: 09-19-2024 09-19-2024 Episodic [...] (Bld) [Mass/Vol]Orde red By: Meenakshi Heck on 12-31-2024 Glucose Blood, POC 166 mg/dL [facility] - Hematology and Cell countson 12-31-2024 HbA1c (Bld) [Mass fraction] 7.5 % [facility] No Panel InformationOrdered By: Meenakshi Heck on 12-31-2024 [facility] ALL CBC WITH AUTO DIFFon BASOPHILS ABSOLUTE AUTO 0.1 [facility] Basophils/100 WBC (Bld) 0.8 % 0.2 - 2.0 % [facility] Eosinophils/100 WBC (Bld) 3.4 % 0.9 - 7.0 % [facility] Erythrocyte distribution width (RBC) [Ratio] 16.8 % High 11.0 - 15.0 % [facility] Hematocrit (Bld) [Volume fraction] 47.2 % 36.0 - 48.0 % [facility] Hemoglobin (Bld) [Mass/Vol] 15.2 g/dL 12.0 - 16.0 g/dL [facility] IMMATURE GRANULOCYTES ABS AUTO 0.04 High [facility] Immature granulocytes/100 WBC (Bld) 0.4 % 0.0 - 0.5 % [facility] Interpretation and review of laboratory results Abnormal [facility] LYMPHOCYTES ABSOLUTE AUTO 1.5 [facility] Lymphocytes/100 WBC (Bld) 14.5 % Low 20.5 - 60.0 % [facility] MCH (RBC) [Entitic mass] 29.4 pg 26.7 - 34.0 pg [facility] MCHC (RBC) [Mass/Vol] 32.2 g/dL 29.9 - 35.2 g/dL [facility] MCV (RBC) [Entitic vol] 91.3 fL 81.0 - 99.0 fL [facility] MONOCYTES ABSOLUTE AUTO 0.6 [facility] Monocytes/100 WBC (Bld) 5.3 % 1.7 - 12.0 % [facility] NEUTROPHILS ABSOLUTE AUTO 7.8 High [facility] Neutrophils/100 WBC (Bld) 75.6 % High 43.0 - 75.0 % [facility] Platelet mean volume (Bld) [Entitic vol] 11.7 fL 9.5 - 13.5 fL [facility] EO # 0.4 [facility] PLT 292 [facility] RBC 5.17 [facility] WBC 10.3 [facility] Neftali 12-06-2024 L - -------- Specimen: [id number] Received: 12/07/24 Status: MARLEE Escobar Num: [id number] Spec Type: Surgical Subm Dr: Radha Brannon,WALTER, [place] Tissues: A Bone Fragments - Other than Path Fracture (RIGHT TIBIA) Procedures: ADY, Gross/Micro L3, Decalcification -------- Age/ Patient Sex Location Account Attending Physician -------- Monica Acosta 63/F LABELL [id number] Radha Brannon DPM, MS -------- SPEC NUM: [id number] RECD: 12/07/24135 STATUS: MARLEE ESCOBAR NUM: [id number] GLENROY: 12/06/24 [facility] DR: Radha Brannon DPM, MS ENTERED: 12/07/24-[address]: Solo,Lab SPEC TYPE: Surgical DEPT: [facility]IN[facility] ENTERED BY: [id number] RECV BY: [id number] ORDERED: HE, Gross/Micro L3, Decalcification ORDERED: HE, Gross/Micro L3, Decalcification Pathological Diagnosis Right tibia, biopsy: Soft tissue and bone with reactive changes. Clinical Information Osteomyelitis and ulcer right anterior lower leg Gross Description Part A is received in formalin labeled with the patients name, date of , and right tibia are lopez-doll, granular bone fragments, 2.8 x 1.4 x 0.8 cm in aggregate. Axle And Frame Mechanic sections are submitted in a single cassette after decalcification in rapid Cali immuno. (1, , RS42-056 A) CPT Codes 67659 -------- -------- Specimen: [id number] Received: 12/07/24 Status: MARLEE Escobar Num: [id number] Spec Type: Surgical Subm Dr: Radha Brannon,WALTER, MS Tissues: A Bone Fragments - Other than Path Fracture (RIGHT TIBIA) Procedures: HE, Gross/Micro L3, Decalcification -------- Patient: Monica Acosta [id number] (Continued) -------- Signed (signature on file) Keyla Lewis MD 12/12/24 6836 Normal [facility] XR Tibia and Fibula - right 2 Viewson 12-06-2024 The [facility] [address] [place] [address] XRay Report Signed Patient: MONICA ACOSTA MR#: [id number] : 1960 Acct:[id number] Age/Sex: 63 / F ADM Date: 12/06/24 Loc: SURGOUT Attending Dr: Radha Brannon D.P.M. Ordering Physician: Radha Brannon D.P.M. Date of Service: 12/06/24 Procedure(s): XR tibia fibula RT 2V Accession Number(s): [id number] cc: Radha Brannon D.P.M.; Rudolph Hurt M.D. The [address] [address] Patient Name: MONICA ACOSTA MRN: [facility]:[id number] date: 1960 Sex: F Assigned Patient Location: SURGOUT Current Patient Location: [facility] Accession/Order Number: [id number] Exam Date: 12/06/2024 14:30 Report Date: 12/06/2024 14:32 At the request of: RADHA BRANNON DP Procedure: XR tibia fibula RT 2V 2 [...] Solo Hill M.D.12/06/2024 2:32 PM Dictation Location: [place] [address] Electronically authenticated by: [id number] Y Date: 12/06/2024 14:32 Dictated By: Solo Hill D.O. Signed By: 12/06/24 1435 DD/ 143 TD/TT: Bowling Pin Setters Installer: [facility] Radiology, Radiologist, MD - 12/06/[address] [address] XRay Report Signed Patient: MONICA ACOSTA MR#: [id number] : 1960 Acct:[id number] Age/Sex: 63 / F ADM Date: 12/06/24 Loc: SURGOUT Attending Dr: Radha Brannon D.P.M. Ordering Physician: Radha Brannon D.P.M. Date of Service: 12/06/24 Procedure(s): XR tibia fibula RT 2V Accession Number(s): [id number] cc: Radha Brannon D.P.M.; Rudolph Hurt M.D. [place] [address] Patient Name: MONICA ACOSTA MRN: [id number] date: 1960 Sex: F Assigned Patient Location: [facility]OUT [facility] Accession/Order Number: [id number] Exam Date: 12/06/2024 14:30 Report Date: 12/06/2024 14:32 At the request of: RADHA BRANNON DPM Procedure: XR tibia fibula RT 2V [...] Solo Hill M.D.12/06/2024 2:32 PM Dictation Location: [place] [address] Electronically authenticated by: [id number] Y Date: 12/06/2024 14:32 Dictated By: Solo Hill D.O. Signed By: 12/06/24 1435 DD/ 143 TD/TT: Bowling Pin Setters Installer: [facility] [employer] Radiology Study observation (narrative) [facility] XR Tibia and Fibula - right 2 ViewsOrdered By: Radiologist Radiology on 12-06-2024 [facility] [employer] Work Phone: CT Lower extremity - right W O contraston 12-05-2024 [place] [address] CT Scan Report Signed Patient: MONICA ACOSTA MR#: [id number] : 1960 Acct:[id number] Age/Sex: 63 / F ADM Date: 12/05/24 Loc: CT Attending Dr: Radha Brannon D.P.M. Ordering Physician: Radha Brannon D.P.M. Date of Service: 12/05/24 Procedure(s): CT lower leg RT wo con Accession Number(s): [id number] cc: Rudolph Hurt M.D. [place] [address] Patient Name: MONICA ACOSTA MRN: [facility]:[id number] date: 1960 Sex: F Assigned Patient Location: CT [facility] Accession/Order Number: [id number] Exam Date: 12/05/2024 14:10 Report Date: 12/05/2024 14:22 At the request of: RADHA BRANNON DPPetra Procedure: CT lower leg RT wo con [...] Solo Hill M.D.12/05/2024 2:22 PM Dictation Location: [place] [address] Electronically authenticated by: [id number] Y Date: 12/05/2024 14:22 Dictated By: Solo Hill D.O. Signed By: 12/05/24 1424 DD/ 142 TD/TT: Bowling Pin Set[employer] Installer: [facility] Radiology, Radiologist, MD - 12/06/2024 [place] [address] CT Scan Report Signed Patient: MONICA ACOSTA MR#: [id number] : 1960 Acct:[id number] Age/Sex: 63 / F ADM Date: 12/05/24 Loc: CT Attending Dr: Radha Brannon D.P.M. Ordering Physician: Radha Brannon D.P.M. Date of Service: 12/05/24 Procedure(s): CT lower leg RT wo con Accession Number(s): [id number] cc: Rudolph Hurt M.D. [place] [address] Patient Name: MONICA ACOSTA MRN: [facility]:[id number] date: 1960 Sex: F Assigned Patient Location: CT Current Patient Location: [facility] Accession/Order Number: [id number] Exam Date: 12/05/2024 14:10 Report Date: 12/05/2024 14:22 At the request of: RADHA BRANNON DPPetra Procedure: CT lower leg RT wo con [...] Solo Hill M.D.12/05/2024 2:22 PM Dictation Location: [facility] [employer] Electronically authenticated by: [id number] Y Date: 12/05/2024 14:22 Dictated By: Solo Hill D.O. Signed By: 12/05/24 1424 DD/ 1422 TD/TT: [employer] Installer: [facility] Radiology Study observation (narrative) [facility] CT Lower extremity - right W O contrastOrdered By: Radiologist Radiology on 12-05-2024 [facility] [employer] Work Phone: [place] ECHO DOPPLER COMPLETEon 0 12-03-2024 [place] [address] Cardiology Report Signed Patient: MONICA ACOSTA MR#: [id number] : 1960 Acct:[id number] Age/Sex: 63 / F ADM Date: 12/03/24 Loc: CARD Attending Dr: TY CARTER Ordering Physician: TY CARTER Date of Service: 12/03/24 Procedure(s): CA echo doppler complete Accession Number(s): [id number] cc: TY CARTER; Rudolph Hurt M.D. Patient Name: MONICA ACOSTA MR#: [id number] : 1960 Exam Date: 12/03/2024 Ordering Doctor: DR TY CARTER M.D. ECHOCARDIOGRAM REPORT PROCEDURE: CA ECHO DOPPLER [...] 23.34 ml, 23.34 ml Dictated by: Ty Carter M.D. on 12/03/2024 at 19:48 Approved by: Ty Carter M.D. on 12/03/2024 at 19:51 Dictated By: TY CARTER Signed By: 12/03/241951 (more content not included)... [facility] Radiology, Radiologist, MD - 12/03/2024 [place] [address] Cardiology Report Signed Patient: MONICA ACOSTA MR#: [id number] : 1960 Acct:[id number] Age/Sex: 63 / F ADM Date: 12/03/24 Loc: CARD Attending Dr: TY CARTER Ordering Physician: TY CARTER Date of Service: 12/03/24 Procedure(s): CA echo doppler complete Accession Number(s): [id number] cc: TY CARTER; Rudolph Hurt M.D. Patient Name: MONICA ACOSTA MR#: [id number] : 1960 Exam Date: 12/03/2024 Ordering Doctor: DR TY CARTER M.D. ECHOCARDIOGRAM REPORT PROCEDURE: CA ECHO DOPPLER [...] 23.34 ml, 23.34 ml Dictated by: Ty Carter M.D. on 12/03/2024 at 19:48 Approved by: Ty Carter M.D. on 12/03/2024 at 19:51 Dictated By: TY CARTER Signed By: 12/03/241951 DD/ 50 TD/TT: [employer] Installer: [facility] Radiology Study observation (narrative) [facility] CA ECHO DOPPLER COMPLETEOrde red By: Radiologist Radiology on 12-03-2024 [facility] Work Phone: [facility] APTTon 11-30-2024 aPTT Coag (Bld) [Time] 25.1 s [facility] No Panel Informationon 11-30 [facility] SRMCOH PROTHROMBIN TIME INR W/O COUMon 11-30-2024 PT Coag (PPP) [Time] 10.8 s [facility] TBH INR 1.02 [facility] Comment on above: DESIRED INR: 2.0-3.0 CONDITIONS NOT LISTED BELOW 2.5-3.5 FOR PROSTHETIC HEART VALVE REPLACEMENT 2.5-3.5 RECURRENT THROMBOSIS XR OSSEOUS SURVEY LIMITEDon 11-20-2024 XR OSSEOUS SURVEY LIMITED XR OSSEOUS SURVEY LIMITED XR OSSEOUS SURVEY LIMITED Rheumatoid arthritis involving multiple sites, unspecified whether rheumatoid factor present ([facility]) Findings: There is grossly no fracture or [...] Ames MD on 11/20/2024 7:53 AM Normal [facility] CBC AND AUTO DIFFon 11-20-19 25 ABSOLUTE BASOPHIL 0.1 X10E9/L Normal 0.0-0.2 [facility] Comment on above: Performed By: #### 2 4331-1, 3016-3 #### [facility] ([id number]) [address], [address] [place] [address] ABSOLUTE NEUTROPHIL 5.8 X10E9/L Normal 1.5-6.6 [facility] Comment on above: Performed By: #### 2 4331-1, 3016-3 #### [facility] ([id number]) [address], [address] [place] [address] Basophils/100 WBC (Bld) 1.5 % Normal [facility] Comment on above: Performed By: #### 2 4331-1, 3016-3 #### [facility] ([id number]) [address], [facility] [address] [place] [address] Eosinophils (Bld) [#/Vol] 0.3 10*3/uL Normal 0.0-0.4 [facility] Comment on above: Performed By: #### 2 4331-1, 3016-3 #### [facility] ([id number]) [address], [address] [place] [address] Eosinophils/100 WBC (Bld) 3.6 % Normal [facility] Comment on above: Performed By: #### 2 4331-1, 3016-3 #### [facility] ([id number]) [address], [address] [place] [address] Erythrocyte distribution width (RBC) [Ratio] 19.0 % High 11.5-15.0 [facility] Comment on above: Performed By: #### 2 4331-1, 6-3 #### [facility] ([id number]) [address], [facility] [address] [place] [address] Hematocrit (Bld) [Volume fraction] 43.6 % Normal 35-47 [facility] Comment on above: Performed By: #### 2 4331-1, 3015-3 #### [facility] ([id number]) [address], [address] [place] [address] Hemoglobin (Bld) [Mass/Vol] 14.6 g/dL Normal 11.7-15.5 [facility] Comment on above: Performed By: #### 2 4331-1, 6-3 #### [facility] ([id number]) [address], [address] [place] [address] Lymphocytes (Bld) [#/Vol] 1.1 10*3/uL Normal 1.0-3.5 [facility] Comment on above: Performed By: #### 2 4331-1, 6-3 #### [facility] ([id number]) [address], [address] [place] [address] Lymphocytes/100 WBC (Bld) 14.2 % Normal [facility] Comment on above: Performed By: #### 2 4331-1, 6-3 #### [facility] ([id number]) [address], [address] [place] [address] MCH (RBC) [Entitic mass] 29.8 pg Normal 27-34 [facility] Comment on above: Performed By: #### 2 4331-1, 6-3 #### [facility] ([id number]) [address], [address] [place] [address] MCHC (RBC) [Mass/Vol] 33.5 g/dL Normal 32-36 [facility] Comment on above: Performed By: #### 2 4331-1, 3015-3 #### [facility] ([id number]) [address], [address] [place] [address] MCV (RBC) [Entitic vol] 89 fL Normal 80-100 [facility] Comment on above: Performed By: #### 2 4331-1, 3015-3 #### [facility] ([id number]) [address], [address] [place] [address] Monocytes (Bld) [#/Vol] 0.5 10*3/uL Normal 0-0.9 [facility] Comment on above: Performed By: #### 2 4331-1, 3015-3 #### [facility] ([id number]) [address], [address] [place] [address] Monocytes/100 WBC (Bld) 6.2 % Normal [facility] Comment on above: Performed By: #### 2 4331-1, 3015-3 #### [facility] ([id number]) [address], [address] [place] [address] Neutrophils/100 WBC (Bld) 74.5 % Normal [facility] Comment on above: Performed By: #### 2 4331-1, 3015-3 #### [facility] ([id number]) [address], [address] [place] [address] Platelet mean volume (Bld) [Entitic vol] 9.6 fL Normal 7-12 [facility] Comment on above: Performed By: #### 2 4331-1, 6-3 #### [facility] ([id number]) [address], [address] [place] [address] Platelets (Bld) [#/Vol] 262 10*3/uL Normal 150-450 [facility] Comment on above: Performed By: #### 2 4331-1, 3015-3 #### [facility] ([id number]) [address], [address] [place] [address] RBC COUNT 4.89 X10E12/L Normal 3.80-5.20 [facility] Comment on above: Performed By: #### 2 4331-1, 3015-3 #### [facility] ([id number]) [address], [address] [place] [address] WBC (Bld) [#/Vol] 7.8 10*3/uL Normal 4.0-11.0 [facility] Comment on above: Performed By: #### 2 4331-1, 3015-3 #### [facility] ([id number]) [address], [address] [place] [address] COMPREHENSIVE METABOLIC PANE Neftali 11-19-2024 Albumin [Mass/Vol] 4.1 g/dL Normal 3.2-5.3 [facility] Comment on above: Performed By: #### 1 5205-8, 6-3, CMP, 1988-01, CBCA, 2132-05, 78565-2, 12720-4, 10847-0 #### [facility] ([id number]) [address], [address] [place] [address] ALP [Catalytic activity/Vol] 154 U/L High 39-130 [facility] Comment on above: Performed By: #### 1 5-8, 6-3, CMP, 1988-01, CBCA, 2132-05, 00288-2, 83440-0, 91857-7 #### [facility] ([id number]) [address], [address] [place] [address] ALT [Catalytic activity/Vol] 19 U/L Normal 0-31 [facility] Comment on above: Performed By: #### 1 5205-8, 3016-3, CMP, 1988-01, CBCA, 2132-05, 29794-0, 10172-0, 87431-0 #### [facility] ([id number]) [address], [address] [place] [address] Anion gap [Moles/Vol] 12 mmol/L Normal 5-15 [facility] Comment on above: Performed By: #### 1 5205-8, 3016-3, CMP, 1988-01, CBCA, 2132-05, 77813-5, 88898-8, 83021-9 #### [facility] ([id number]) [address], [address] [place] [address] AST [Catalytic activity/Vol] 28 U/L Normal 0-41 [facility] Comment on above: Performed By: #### 1 5205-8, 3016-3, CMP, 1988-01, CBCA, 2132-05, 22240-4, 26035-6, 17414-9 #### [facility] ([id number]) [address], [address] [place] [address] Bilirubin [Mass/Vol] 0.4 mg/dL Normal 0.3-1.2 [facility] Comment on above: Performed By: #### 1 5205-8, 3016-3, CMP, 1988-01, CBCA, 2132-05, 02282-2, 67569-4, 35582-9 #### [facility] ([id number]) [address], [address] [place] [address] Calcium [Mass/Vol] 10.1 mg/dL Normal 8.5-10.5 [facility] Comment on above: Performed By: #### 1 5205-8, 3016-3, CMP, 1988-01, CBCA, 9, 59911-4, 84800-0, 25964-6 #### [facility] ([id number]) [address], [address] [place] [address] Chloride [Moles/Vol] 99 mmol/L Normal 98-109 [facility] Comment on above: Performed By: #### 1 5205-8, 6-3, CMP, 1988-01, CBCA, 2132-05, 37527-3, 35918-1, 21610-8 #### [facility] ([id number]) [address], [address] [place] [address] CO2 [Moles/Vol] 24 mmol/L Normal 22-32 [facility] Comment on above: Performed By: #### 1 5205-8, 6-3, CMP, 1988-01, CBCA, 9, 46731-2, 60386-3, 87995-4 #### [facility] ([id number]) [address], [address] [place] [address] Creatinine [Mass/Vol] 1.24 mg/dL High 0.40-1.00 [facility] Comment on above: Result Comment: METH OD TRACEABLE TO IDMS STANDARD Performed By: #### 1 5-8, 6-3, CMP, 1988-01, CBCA, 9, 80103-0, 49946-8, 08784-3 #### [facility] ([id number]) [address], [address] [place] [address] GFR/1.73 sq M.predicted among non-blacks MDRD (S/P/Bld) [Vol rate/Area] 49 mL/min/{1.73_m2} Low >59 [facility] Comment on above: Result Comment: Reported eGFR is based on the CKD-EPI 2020 equation that does not use a race coefficient. Performed By: #### 1 5204-8, 3015-3, CMP, 1988-01, CBCA, 2132-05, 74996-7, 84481-8, 65542-6 #### [facility] ([id number]) [address], [address] [place] [address] Glucose [Mass/Vol] 189 mg/dL High 65-99 [facility] Comment on above: Performed By: #### 1 5204-8, 3015-3, CMP, 1988-01, CBCA, 2132-05, 70147-6, 24867-2, 53401-5 #### [facility] ([id number]) [address], [address] [place] [address] Potassium [Moles/Vol] 5.0 mmol/L Normal 3.5-5.[address] [facility] Comment on above: Performed By: #### 1 5204-8, 3, CMP, 1988-01, CBCA, 2132-05, 08346-3, 84788-0, 37741-9 #### [facility] ([id number]) [address], [address] [place] [address] Protein [Mass/Vol] 7.9 g/dL Normal 6.0-8.0 [facility] Comment on above: Performed By: #### 1 5204-8, 3, CMP, 1988-01, CBCA, 2132-05, 76736-5, 90922-3, 14514-1 #### [facility] ([id number]) [address], [address] [place] [address] Sodium [Moles/Vol] 135 mmol/L Normal 134-146 [facility] Comment on above: Performed By: #### 1 5204-8, 3015-3, CMP, 1988-01, CBCA, 2132-05, 67586-2, 77988-9, 26576-8 #### [facility] ([id number]) [address], [address] [place] [address] Urea nitrogen [Mass/Vol] 25 mg/dL Normal 5-27 [facility] Comment on above: Performed By: #### 1 5205-8, 6-3, CMP, 1988-01, CBCA, 2132-05, 32341-0, 22211-9, 10011-0 #### [facility] ([id number]) [address], [address] [place] [address] CRP [Mass/Vol]on 11-19-2024 C REACTIVE PROTEIN 0.5 mg/dL Normal 0.000-0.744 [facility] Comment on above: Performed By: #### 2 4331-1, 3015-3 #### [facility] ([id number]) [address], [address] [place] [address] ESR Photometric method (Bld) [Velocity]on 11-19-2024 ESR, ERYTHROCYTE SEDIMENTATION RATE 29 mm/h Normal 0-30 [facility] Comment on above: Performed By: #### 2 4331-1, 3015-3 #### [facility] ([id number]) [address], [address] [place] [address] Rheumatoid factor Nephelomet ry Qn (S)on 11-19-2024 RHEUMATOID FACTOR 54 IU/mL High <20 [facility] Comment on above: Performed By: #### 1 5205-8, 6-3, CMP, 1988-01, CBCA, 2132-05, 85676-0, 40225-6, 90985-9 #### [facility] ([id number]) [address], [address] [place] [address] TSH Qnon 11-19-2024 TSH 3.01 uIU/mL Normal 0.49-4.67 [facility] Comment on above: Performed By: #### 1 5204-8, 3016-3, CMP, 1988-01, CBCA, 2131-9, 68958-1, 83097-6, 49532-4 #### [facility] ([id number]) [address], [address] [place] [address] VITAMIN B12on 11-19-2024 Cobalamin (Vitamin B12) [Mass/Vol] 279 pg/mL Normal 180-914 [facility] Comment on above: Performed By: #### 2 4331-1, 3015-3 #### [facility] ([id number]) [address], [address] [place] [address] Vitamin D+Metabolites [Mass/ Vol]on 11-19-2024 VITAMIN D 25 HYD TOT 55.1 ng/mL Normal 30-100 [facility] Comment on above: Result Comment: Vitamin D status 25 [place] Vitamin D Deficiency <20 ng/mL Insufficiency 20-29 ng/mL Sufficiency 30-100 ng/mL Toxicity >100 ng/mL NOTE: A pediatric reference range has not been established by the propellant assembler of this kit. The [employer] [employer] recommends a Vitamin D level of = or >20ng/mL in infants and children. Performed By: #### 2 4331-1, 3015-3 #### [facility] ([id number]) [address], [address] [place] [address] XR CHEST 2 VWSon 11-19-2024 XR CHEST 2 VWS XR CHEST 2 VWS EXAM: XR CHEST 2 VWS CLINICAL INFORMATION: Rheumatoid arthritis involving multiple sites, unspecified whether rheumatoid factor present ([facility]). COMPARISON: None. FINDINGS: There are low lung [...] Fernando Brenner MD on 11/19/2024 6:46 PM [facility] Follow-Upon 10-15-2024 Follow-Up [facility] Glucose (Bld) [Mass/Vol]Orde red By: Meenakshi Heck on 08-21-2024 Glucose Blood, POC 100 mg/dL [facility] - Hematology and Cell countson 08-21-2024 HbA1c (Bld) [Mass fraction] 7.5 % [facility] No Panel InformationOrdered By: Meenakshi Heck on 08-21-2024 [facility] Follow-Upon 08-13-2024 Follow-Up [facility] 36on 05-15-2024 36 Looks like patient told Dr Shipman was already taking these medications. Dr shipman did not prescribe patient anything. She will need to contact pcp office. [facility] 36 Kady from [facility] called for clarification on calcium and vit D3 order from , [facility] does not currently have an order for calcium and vit D3 for patient, please fax clarification to Fax:[phone] [facility] 36on 05-08-2024 36 [facility] 36 [facility] Telephoneon 05-08-2024 Telephone [facility] 30on 05-01-2024 30 [facility] 30 [facility] BASIC METABOLIC PANELon 04-06 Anion gap [Moles/Vol] 10 mmol/L Normal 7-20 [facility] Comment on above: Performed By: #### L AB15 ####[facility] (BEAKER)[address] [place] [address] Calcium [Mass/Vol] 9.1 mg/dL Normal 8.6-10.3 [facility] Comment on above: Performed By: #### L AB15 ####[facility] (BEAKER)[address] [place] [address] Chloride [Moles/Vol] 95 mmol/L Low 98-107 [facility] Comment on above: Performed By: #### L AB15 ####[facility] ([facility])[address] [place] [address] CO2 [Moles/Vol] 32 mmol/L High 21-31 [facility] Comment on above: Performed By: #### L AB15 ####[facility] ([facility])[address] [place] [address] Creatinine [Mass/Vol] 0.76 mg/dL Normal 0.60-1.20 [facility] Comment on above: Performed By: #### L AB15 ####[facility] ([facility])[address] [place] [address] GLOMERULAR FILTRATION RATE ML/MIN/1.73 SQ M.PREDICTED 87.4 mL/min/1.73m*2 Normal >60.0 [facility] Comment on above: Result Comment: The St. [...] of individuals. Performed By: #### L AB15 ####[facility] ([facility])[address] [place] [address] Glucose [Mass/Vol] 102 mg/dL High 70-100 [facility] Comment on above: Performed By: #### L AB15 ####[facility] ([facility])[address] [place] [address] Potassium [Moles/Vol] 4.4 mmol/L Normal 3.5-5.1 [facility] Comment on above: Performed By: #### L AB15 ####[facility] (BEAKER)[address] [place] [address] Sodium [Moles/Vol] 133 mmol/L Low 136-145 [facility] Comment on above: Performed By: #### L AB15 ####[facility] ([facility] [place] [address] Urea nitrogen [Mass/Vol] 23 mg/dL Normal 7-25 [facility] Comment on above: Performed By: #### L AB15 ####[facility] ([facility])[address] [place] [address] UREA NITROGEN/CREATININE (MASS RATIO) IN SER/PLAS 30.[address] [facility] Comment on above: Performed By: #### L AB15 ####[facility] ([facility])[address] [place] [address] CBCon 05-01-2024 Erythrocyte distribution width (RBC) [Ratio] 15.1 % High 11.5-15.0 [facility] Comment on above: Performed By: #### L AB294 ####[facility] ([facility] [place] [address] ERYTHROCYTE MEAN CORPUSCULAR HEMOGLOBIN CONCENTRATION (G/DL) BY AUTOMATED 32.2 g/dL Normal 32.0-35.0 [facility] Comment on above: Performed By: #### L AB294 ####[facility] ([facility] [place] [address] Hematocrit (Bld) [Volume fraction] 35.4 % Low 36.0-48.0 [facility] Comment on above: Performed By: #### L AB294 ####[facility] (BEAKER)[address] [place] [address] Hemoglobin (Bld) [Mass/Vol] 11.4 g/dL Low 12.0-15.0 [facility] Comment on above: Performed By: #### L AB294 ####[facility] (BEAKER)[address] [place] [address] MCH (RBC) [Entitic mass] 29.8 pg Normal 27.0-33.0 [facility] Comment on above: Performed By: #### L AB294 ####[facility] ([facility])[address] [place] [address] MCV (RBC) [Entitic vol] 92.7 fL Normal 82.0-98.0 [facility] Comment on above: Performed By: #### L AB294 ####[facility] ([facility])[address] [place] [address] PLATELETS (10*3/UL) IN BLOOD AUTOMATED COUNT 425 10*3/uL High 150-400 [facility] Comment on above: Performed By: #### L AB294 ####[facility] ([facility])[address] [place] [address] RBC (Bld) [#/Vol] 3.82 10*6/uL Normal 3.80-5.00 [facility] Comment on above: Performed By: #### L AB294 ####[facility] ([facility])[address] [place] [address] WBC (Bld) [#/Vol] 9.39 10*3/uL Normal 4.00-10.60 [facility] Comment on above: Performed By: #### L AB294 ####[facility] ([facility])[address] [place] [address] CONSULTon 05-01-2024 CONSULT 13:25-SW requested transport for patient-await response. 14:40-SW notified [facility] can transport at 3:20pm-SW to make packet. 15:15-SW gave packet to [facility] crew.7000 completed. OTM will continue to follow. Normal [facility] DSon 05-01-[address] [facility] MAGNESIUMon 05-01-2024 Magnesium [Mass/Vol] 1.9 mg/dL Normal 1.9-2.7 [facility] Comment on above: Performed By: #### L AB103 ####[facility] ([facility])[address] [place] [address] NURSNOTEon 05-01-2024 NURSNOTE Photocomposition Keyboard Operator attempted to call [facility] for report. Photocomposition Keyboard Operator was on hold for 5 minutes, was not able to leave voicemail. Normal [facility] PHOSPHORUSon 05-01-2024 Magnesium [Mass/Vol] 3.5 mg/dL Normal 2.5-5.0 [facility] Comment on above: Performed By: #### L AB113 ####[facility] ([facility])[address] [place] [address] POCT GLUCOSE METER UNSOLICIT ED RESULTSon 05-01-2024 Glucose [Mass/Vol] 99 mg/dL Normal 70-105 [facility] Comment on above: Order Comment: Waive d Testing in the ED is performed under the ED CLIA certificate #[id number]. Result Comment: [email or web address] Performed By: #### L [id number] ####[facility] ([facility])[address] [facility] [place] [address] Glucose [Mass/Vol] 103 mg/dL Normal 70-105 [facility] Comment on above: Order Comment: Waive d Testing in the ED is performed under the ED CLIA certificate #[id number]. Result Comment: [email or web address] Performed By: #### L [id number] ####[facility] ([facility] [facility] [place] [address] BASIC METABOLIC PANELon 04-06 Anion gap [Moles/Vol] 11 mmol/L Normal 7-20 [facility] Comment on above: Performed By: #### L [id number] ####[facility] ([facility] [place] [address] Calcium [Mass/Vol] 9.0 mg/dL Normal 8.6-10.3 [facility] Comment on above: Performed By: #### L [id number] ####[facility] ([facility] [facility] [place] [address] Chloride [Moles/Vol] 94 mmol/L Low 98-107 [facility] Comment on above: Performed By: #### L [id number] ####[facility] ([facility])[address] [place] [address] CO2 [Moles/Vol] 34 mmol/L High 21-31 [facility] Comment on above: Performed By: #### L [id number] ####[facility] ([facility] [place] [address] Creatinine [Mass/Vol] 0.78 mg/dL Normal 0.60-1.20 [facility] [facility] Comment on above: Performed By: #### L [id number] ####[facility] [place] [address] GLOMERULAR FILTRATION RATE ML/MIN/1.73 SQ M.PREDICTED 84.8 mL/min/1.73m*2 Normal >60.0 [facility] Comment on above: Result Comment: The St. [...] of individuals. Performed By: #### L [id number] ####[facility] (BEAKER)[address] [place] [address] Glucose [Mass/Vol] 121 mg/dL High 70-100 [facility] Comment on above: Performed By: #### L [id number] ####[facility] (BEAKER)[address] [place] [address] Potassium [Moles/Vol] 4.4 mmol/L Normal 3.5-5.1 [facility] Comment on above: Performed By: #### L [id number] ####[facility] (BEAKER)[address] [place] [address] Sodium [Moles/Vol] 135 mmol/L Low 136-145 [facility] Comment on above: Performed By: #### L [id number] ####[facility] ([facility] [place] [address] Urea nitrogen [Mass/Vol] 20 mg/dL Normal 7-25 [facility] Comment on above: Performed By: #### L [id number] ####[facility] ([facility])[address] [place] [address] UREA NITROGEN/CREATININE (MASS RATIO) IN SER/PLAS 25.[address] [facility] Comment on above: Performed By: #### L [id number] ####[facility] ([facility])[address] [place] [address] CBCon 04-30-2024 Erythrocyte distribution width (RBC) [Ratio] 14.7 % Normal 11.5-15.0 [facility] Comment on above: Performed By: #### L [id number] ####[facility] ([facility])[address] [place] [address] ERYTHROCYTE MEAN CORPUSCULAR HEMOGLOBIN CONCENTRATION (G/DL) BY AUTOMATED 31.7 g/dL Low 32.0-35.0 [facility] Comment on above: Performed By: #### L [id number] ####[facility] ([facility])[address] [place] [address] Hematocrit (Bld) [Volume fraction] 36.3 % Normal 36.0-48.0 [facility] Comment on above: Performed By: #### L [id number] ####[facility] ([facility] [place] [address] Hemoglobin (Bld) [Mass/Vol] 11.5 g/dL Low 12.0-15.0 [facility] Comment on above: Performed By: #### L [id number] ####[facility] [place] [address] MCH (RBC) [Entitic mass] 30.3 pg Normal 27.0-33.0 [facility] Comment on above: Performed By: #### L [id number] ####[facility] ([facility] [place] [address] MCV (RBC) [Entitic vol] 95.8 fL Normal 82.0-98.0 [facility] Comment on above: Performed By: #### L [id number] ####[facility] ([facility])[address] [place] [address] PLATELETS (10*3/UL) IN BLOOD AUTOMATED COUNT 381 10*3/uL Normal 150-400 [facility] Comment on above: Performed By: #### L [id number] ####[facility] ([facility])[address] [place] [address] RBC (Bld) [#/Vol] 3.79 10*6/uL Low 3.80-5.00 [facility] Comment on above: Performed By: #### L [id number] ####[facility] ([facility])[address] [place] [address] WBC (Bld) [#/Vol] 9.02 10*3/uL Normal 4.00-10.60 [facility] Comment on above: Performed By: #### L [id number] ####[facility] ([facility])[address] [place] [address] MAGNESIUMon 04-30-2024 Magnesium [Mass/Vol] 1.8 mg/dL Low 1.9-2.7 [facility] Comment on above: Performed By: #### L [id number] ####[facility] ([facility])[address] [place] [address] PHOSPHORUSon 04-30-2024 Magnesium [Mass/Vol] 3.2 mg/dL Normal 2.5-5.0 [facility] Comment on above: Performed By: #### L [id number] ####[facility] ([facility])[address] [place] [address] POCT GLUCOSE METER UNSOLICIT ED RESULTSon 04-30-2024 Glucose [Mass/Vol] 160 mg/dL High 70-105 [facility] Comment on above: Order Comment: Waive d Testing in the ED is performed under the ED CLIA certificate #[id number]. Result Comment: [email or web address] Performed By: #### L [id number] ####[facility] (BEAKER)[address] [place] [address] Glucose [Mass/Vol] 111 mg/dL High 70-105 [facility] Comment on above: Order Comment: Waive d Testing in the ED is performed under the ED CLIA certificate #[id number]. Result Comment: epoo [email or web address] Performed By: #### L [id number] ####[facility] ([facility])[address] [place] [address] Glucose [Mass/Vol] 172 mg/dL High 70-105 [facility] Comment on above: Order Comment: Waive d Testing in the ED is performed under the ED CLIA certificate #[id number]. Result Comment: epoo [email or web address] Performed By: #### L [id number] ####[facility] ([facility])[address] [place] [address] Glucose [Mass/Vol] 160 mg/dL High 70-105 [facility] Comment on above: Order Comment: Waive d Testing in the ED is performed under the ED CLIA certificate #[id number]. Result Comment: epoo [email or web address] Performed By: #### L [id number] ####[facility] ([facility])[address] [place] [address] BASIC METABOLIC PANELon 08-2 Anion gap [Moles/Vol] 10 mmol/L Normal 7-20 [facility] Comment on above: Performed By: #### L [id number] ####[facility] ([facility])[address] [place] [address] Calcium [Mass/Vol] 8.9 mg/dL Normal 8.6-10.3 [facility] Comment on above: Performed By: #### L [id number] ####[facility] ([facility])[address] [place] [address] Chloride [Moles/Vol] 95 mmol/L Low 98-107 [facility] Comment on above: Performed By: #### L [id number] ####[facility] ([facility])[address] [place] [address] CO2 [Moles/Vol] 34 mmol/L High 21-31 [facility] Comment on above: Performed By: #### L [id number] ####[facility] ([facility])[address] [place] [address] Creatinine [Mass/Vol] 0.89 mg/dL Normal 0.60-1.20 [facility] Comment on above: Performed By: #### L [id number] ####[facility] ([facility])[address] [place] [address] GLOMERULAR FILTRATION RATE ML/MIN/1.73 SQ M.PREDICTED 72.4 mL/min/1.73m*2 Normal >60.0 [facility] Comment on above: Result Comment: The St. [...] of individuals. Performed By: #### L [id number] ####[facility] ([facility])[address] [place] [address] Glucose [Mass/Vol] 173 mg/dL High 70-100 [facility] Comment on above: Performed By: #### L [id number] ####[facility] ([facility])[address] [place] [address] Potassium [Moles/Vol] 4.7 mmol/L Normal 3.5-5.1 [facility] Comment on above: Performed By: #### L [id number] ####[facility] (BEAKER)[address] [place] [address] Sodium [Moles/Vol] 134 mmol/L Low 136-145 [facility] Comment on above: Performed By: #### L [id number] ####[facility] (BEAKER)[address] [place] [address] Urea nitrogen [Mass/Vol] 16 mg/dL Normal 7-25 [facility] Comment on above: Performed By: #### L [id number] ####[facility] (BEAKER)[address] [place] [address] UREA NITROGEN/CREATININE (MASS RATIO) IN SER/PLAS 18.[address] [facility] Comment on above: Performed By: #### L [id number] ####[facility] (BEAKER)[address] [place] [address] CBCon 04-29-2024 Erythrocyte distribution width (RBC) [Ratio] 14.6 % Normal 11.5-15.0 [facility] Comment on above: Performed By: #### L [id number] ####[facility] (BEAKER)[address] [place] [address] ERYTHROCYTE MEAN CORPUSCULAR HEMOGLOBIN CONCENTRATION (G/DL) BY AUTOMATED 31.0 g/dL Low 32.0-35.0 [facility] Comment on above: Performed By: #### L [id number] ####[facility] (BEAKER)[address] [place], [place] [address] Hematocrit (Bld) [Volume fraction] 33.9 % Low 36.0-48.0 [facility] Comment on above: Performed By: #### L [id number] ####[facility] (BEAKER)[address] [place], [place] [address] Hemoglobin (Bld) [Mass/Vol] 10.5 g/dL Low 12.0-15.0 [facility] Comment on above: Performed By: #### L [id number] ####[facility] (BEAKER)[address] [place] [address] MCH (RBC) [Entitic mass] 30.1 pg Normal 27.0-33.0 [facility] Comment on above: Performed By: #### L [id number] ####[facility] ([facility])[address] [place] [address] MCV (RBC) [Entitic vol] 97.1 fL Normal 82.0-98.0 [facility] Comment on above: Performed By: #### L [id number] ####[facility] ([facility])[address] [place] [address] PLATELETS (10*3/UL) IN BLOOD AUTOMATED COUNT 320 10*3/uL Normal 150-400 [facility] Comment on above: Performed By: #### L [id number] ####[facility] ([facility])[address] [place] [address] RBC (Bld) [#/Vol] 3.49 10*6/uL Low 3.80-5.00 [facility] Comment on above: Performed By: #### L [id number] ####[facility] ([facility])[address] [place] [address] WBC (Bld) [#/Vol] 9.12 10*3/uL Normal 4.00-10.60 [facility] Comment on above: Performed By: #### L [id number] ####[facility] ([facility])[address] [place] [address] MAGNESIUMon 04-29-2024 Magnesium [Mass/Vol] 1.9 mg/dL Normal 1.9-2.7 [facility] Comment on above: Performed By: #### L [id number] ####[facility] ([facility])[address] [place] [address] NURSNOTEon 04-29-[address] [facility] PHOSPHORUSon 04-29-2024 Magnesium [Mass/Vol] 3.1 mg/dL Normal 2.5-5.0 [facility] Comment on above: Performed By: #### L [id number] ####[facility] [place] [address] POCT GLUCOSE METER UNSOLICIT ED RESULTSon 04-29-2024 Glucose [Mass/Vol] 116 mg/dL High 70-105 [facility] Comment on above: Order Comment: Waive d Testing in the ED is performed under the ED CLIA certificate #[id number]. Result Comment: [email or web address] Performed By: #### L [id number] ####[facility] ([facility])[address] [place] [address] Glucose [Mass/Vol] 153 mg/dL High 70-105 [facility] Comment on above: Order Comment: Waive d Testing in the ED is performed under the ED CLIA certificate #[id number]. Result Comment: [email or web address] [email or web address] Performed By: #### L [id number] ####[facility] ([facility])[address] [place] [address] Glucose [Mass/Vol] 205 mg/dL High 70-105 [facility] Comment on above: Order Comment: Waive d Testing in the ED is performed under the ED CLIA certificate #[id number]. Result Comment: [email or web address] [email or web address] Performed By: #### L [id number] ####[facility] ([facility])[address] [place] [address] Glucose [Mass/Vol] 181 mg/dL High 70-105 [facility] Comment on above: Order Comment: Waive d Testing in the ED is performed under the ED CLIA certificate #[id number]. Result Comment: [email or web address] Performed By: #### L [id number] ####[facility] ([facility])[address] [place] [address] BASIC METABOLIC PANELon 04-06 Anion gap [Moles/Vol] 7 mmol/L Normal 7-20 [facility] Comment on above: Performed By: #### L [id number] ####[facility] (Clean PET)[address] [place] [address] Calcium [Mass/Vol] 8.2 mg/dL Low 8.6-10.3 [facility] Comment on above: Performed By: #### L [id number] ####[facility] ([facility])[address] [place] [address] Chloride [Moles/Vol] 98 mmol/L Normal 98-107 [facility] Comment on above: Performed By: #### L [id number] ####[facility] ([facility])[address] [place] [address] CO2 [Moles/Vol] 38 mmol/L High 21-31 [facility] Comment on above: Performed By: #### L [id number] ####[facility] ([facility])[address] [place] [address] Creatinine [Mass/Vol] 0.66 mg/dL Normal 0.60-1.20 [facility] Comment on above: Performed By: #### L [id number] ####[facility] ([facility])[address] [place] [address] GLOMERULAR FILTRATION RATE ML/MIN/1.73 SQ M.PREDICTED 97.9 mL/min/1.73m*2 Normal >60.0 [facility] Comment on above: Result Comment: The St. [...] of individuals. Performed By: #### L [id number] ####[facility] ([facility])[address] [place] [address] Glucose [Mass/Vol] 65 mg/dL Low 70-100 [facility] Comment on above: Performed By: #### L [id number] ####[facility] (BEAKER)[address] [place] [address] Potassium [Moles/Vol] 3.9 mmol/L Normal 3.5-5.1 [facility] Comment on above: Performed By: #### L [id number] ####[facility] (BEAKER)[address] [place] [address] Sodium [Moles/Vol] 139 mmol/L Normal 136-145 [facility] Comment on above: Performed By: #### L [id number] ####[facility] (BEAKER)[address] [place] [address] Urea nitrogen [Mass/Vol] 15 mg/dL Normal 7-25 [facility] Comment on above: Performed By: #### L [id number] ####[facility] (BEAKER)[address] [place] [address] UREA NITROGEN/CREATININE (MASS RATIO) IN SER/PLAS 22.[address] [facility] Comment on above: Performed By: #### L [id number] ####[facility] (BEAKER)[address] [place] [address] CBCon 04-28-2024 Erythrocyte distribution width (RBC) [Ratio] 14.3 % Normal 11.5-15.0 [facility] Comment on above: Performed By: #### L [id number] ####[facility] (BEAKER)[address] [place] [address] ERYTHROCYTE MEAN CORPUSCULAR HEMOGLOBIN CONCENTRATION (G/DL) BY AUTOMATED 32.3 g/dL Normal 32.0-35.0 [facility] Comment on above: Performed By: #### L [id number] ####[facility] (BEAKER)[address] [place] [address] Hematocrit (Bld) [Volume fraction] 31.3 % Low 36.0-48.0 [facility] Comment on above: Performed By: #### L [id number] ####[facility] (BEAKER)[address] [place] [address] Hemoglobin (Bld) [Mass/Vol] 10.1 g/dL Low 12.0-15.0 [facility] Comment on above: Performed By: #### L [id number] ####[facility] ([facility])[address] [place] [address] MCH (RBC) [Entitic mass] 30.0 pg Normal 27.0-33.0 [facility] Comment on above: Performed By: #### L [id number] ####[facility] ([facility])[address] [place] [address] MCV (RBC) [Entitic vol] 92.9 fL Normal 82.0-98.0 [facility] Comment on above: Performed By: #### L [id number] ####[facility] ([facility])[address] [place] [address] PLATELETS (10*3/UL) IN BLOOD AUTOMATED COUNT 280 10*3/uL Normal 150-400 [facility] Comment on above: Performed By: #### L [id number] ####[facility] ([facility])[address] [place] [address] RBC (Bld) [#/Vol] 3.37 10*6/uL Low 3.80-5.00 [facility] Comment on above: Performed By: #### L [id number] ####[facility] ([facility])[address] [place] [address] WBC (Bld) [#/Vol] 7.00 10*3/uL Normal 4.00-10.60 [facility] Comment on above: Performed By: #### L [id number] ####[facility] ([facility])[address] [place] [address] MAGNESIUMon 04-28-2024 Magnesium [Mass/Vol] 2.2 mg/dL Normal 1.9-2.7 [facility] Comment on above: Performed By: #### L [id number] ####[facility] ([facility])[address] [place] [address] NURSNOTEon 04-28-2024 NURSNOTE 0707: Patients glucose found to be 59. Pt declining glucose tabs, instead ate richie crackers and apple juice. Pt also turned off her insulin pump temporarily. 0830: Pt Glucose recheck is 157. Normal [facility] PHOSPHORUSon 04-28-2024 Magnesium [Mass/Vol] 2.1 mg/dL Low 2.5-5.0 [facility] Comment on above: Performed By: #### L [id number] ####[facility] ([facility])[address] [place] [address] POCT GLUCOSE METER UNSOLICIT ED RESULTSon 04-28-2024 Glucose [Mass/Vol] 206 mg/dL High 70-105 [facility] Comment on above: Order Comment: Waive d Testing in the ED is performed under the ED CLIA certificate #[id number]. Result Comment: [email or web address] Performed By: #### L [id number] ####[facility] (Clean PET)[address] [place] [address] Glucose [Mass/Vol] 207 mg/dL High 70-105 [facility] Comment on above: Order Comment: Waive d Testing in the ED is performed under the ED CLIA certificate #[id number]. Result Comment: [email or web address] [email or web address] Performed By: #### L [id number] ####[facility] ([employer])[address] [place] [address] Glucose [Mass/Vol] 184 mg/dL High 70-105 [facility] Comment on above: Order Comment: Waive d Testing in the ED is performed under the ED CLIA certificate #[id number]. Result Comment: [email or web address] Performed By: #### L [id number] ####[facility] ([employer])[address] [place] [address] Glucose [Mass/Vol] 157 mg/dL High 70-105 [facility] Comment on above: Order Comment: Waive d Testing in the ED is performed under the ED CLIA certificate #[id number]. Result Comment: [email or web address] Performed By: #### L [id number] ####[facility] ([employer])[address] [place] [address] Glucose [Mass/Vol] 59 mg/dL Low 70-105 [facility] Comment on above: Order Comment: Waive d Testing in the ED is performed under the ED CLIA certificate #[id number]. Result Comment: [email or web address] [email or web address] Performed By: #### L [id number] ####[facility] (BEAKER)[address] [place] [address] 30on 04-27-[address] [facility] BASIC METABOLIC PANELon 04-06 Anion gap [Moles/Vol] 10 mmol/L Normal 7-20 [facility] Comment on above: Performed By: #### L [id number] ####[facility] [place] [address] Calcium [Mass/Vol] 7.6 mg/dL Low 8.6-10.3 [facility] Comment on above: Performed By: #### L [id number] ####[facility] (BEAKER)[address] [place] [address] Chloride [Moles/Vol] 100 mmol/L Normal 98-107 [facility] Comment on above: Performed By: #### L [id number] ####[facility] (BEAKER)[address] [place] [address] CO2 [Moles/Vol] 32 mmol/L High 21-31 [facility] Comment on above: Performed By: #### L [id number] ####[facility] (BEAKER)[address] [place] [address] Creatinine [Mass/Vol] 0.81 mg/dL Normal 0.60-1.20 [facility] Comment on above: Performed By: #### L [id number] ####[facility] (BEAKER)[address] [place] [address] GLOMERULAR FILTRATION RATE ML/MIN/1.73 SQ M.PREDICTED 81.0 mL/min/1.73m*2 Normal >60.0 [facility] Comment on above: Result Comment: The St. [...] of individuals. Performed By: #### L [id number] ####[facility] (AKER)[address] [place] [address] Glucose [Mass/Vol] 111 mg/dL High 70-100 [facility] Comment on above: Performed By: #### L [id number] ####[facility] (BEAKER)[address] [place] [address] Potassium [Moles/Vol] 3.6 mmol/L Normal 3.5-5.1 [facility] Comment on above: Performed By: #### L [id number] ####[facility] (BEAKER)[address] [place] [address] Sodium [Moles/Vol] 138 mmol/L Normal 136-145 [facility] Comment on above: Performed By: #### L [id number] ####[facility] (BEAKER)[address] [place] [address] Urea nitrogen [Mass/Vol] 19 mg/dL Normal 7-25 [facility] Comment on above: Performed By: #### L [id number] ####[facility] (BEAKER)[address] [place] [address] UREA NITROGEN/CREATININE (MASS RATIO) IN SER/PLAS 23.[address] [facility] Comment on above: Performed By: #### L [id number] ####[facility] (BEAKER)[address] [place] [address] CBCon 04-27-2024 Erythrocyte distribution width (RBC) [Ratio] 14.2 % Normal 11.5-15.0 [facility] Comment on above: Performed By: #### L [id number] ####[facility] [place] [address] ERYTHROCYTE MEAN CORPUSCULAR HEMOGLOBIN CONCENTRATION (G/DL) BY AUTOMATED 32.0 g/dL Normal 32.0-35.0 [facility] Comment on above: Performed By: #### L [id number] ####[facility] ([facility])[address] [place] [address] Hematocrit (Bld) [Volume fraction] 29.7 % Low 36.0-48.0 [facility] Comment on above: Performed By: #### L [id number] ####[facility] ([facility])[address] [place] [address] Hemoglobin (Bld) [Mass/Vol] 9.5 g/dL Low 12.0-15.0 [facility] Comment on above: Performed By: #### L [id number] ####[facility] ([facility])[address] [place] [address] MCH (RBC) [Entitic mass] 30.0 pg Normal 27.0-33.0 [facility] Comment on above: Performed By: #### L [id number] ####[facility] ([facility])[address] [place] [address] MCV (RBC) [Entitic vol] 93.7 fL Normal 82.0-98.0 [facility] Comment on above: Performed By: #### L [id number] ####[facility] [place] [address] PLATELETS (10*3/UL) IN BLOOD AUTOMATED COUNT 280 10*3/uL Normal 150-400 [facility] Comment on above: Performed By: #### L [id number] ####[facility] [place] [address] RBC (Bld) [#/Vol] 3.17 10*6/uL Low 3.80-5.00 [facility] Comment on above: Performed By: #### L [id number] ####[facility] ([facility])[address] [place] [address] WBC (Bld) [#/Vol] 7.40 10*3/uL Normal 4.00-10.60 [facility] Comment on above: Performed By: #### L [id number] ####[facility] ([facility])[address] [place] [address] CK TOTAL AND CKMBon 04-27-20 24 CREATINE KINASE (U/L) IN SER/PLAS 99.0 U/L Normal 30.0-223.0 [facility] Comment on above: Performed By: #### L [id number] ####[facility] ([facility])[address] [place] [address] CREATINE KINASE MB/CREATINE KINASE TOTAL BY CALCULATION 1.5 Normal 0.0-1.9 [facility] Comment on above: Performed By: #### L [id number] ####[facility] ([facility])[address] [place] [address] CREATINE KINASE-MB (NG/ML) IN SER/PLAS 1.5 ng/mL Normal 0.0-5.0 [facility] Comment on above: Performed By: #### L [id number] ####[facility] ([facility])[address] [place] [address] CONSULTon 04-27-[address] [facility] CONSULT Normal [facility] MAGNESIUMon 04-27-2024 Magnesium [Mass/Vol] 1.7 mg/dL Low 1.9-2.7 [facility] Comment on above: Performed By: #### L [id number] ####[facility] ([facility])[address] [place] [address] NURSNOTEon 04-27-[address] [facility] PHOSPHORUSon 04-27-2024 Magnesium [Mass/Vol] 3.4 mg/dL Normal 2.5-5.0 [facility] Comment on above: Performed By: #### L [id number] ####[facility] ([facility])[address] [place] [address] POCT GLUCOSE METER UNSOLICIT ED RESULTSon 04-27-2024 Glucose [Mass/Vol] 174 mg/dL High 70-105 [facility] Comment on above: Order Comment: Waive d Testing in the ED is performed under the ED CLIA certificate #[id number]. Result Comment: [email or web address] Performed By: #### L [id number] ####[facility] ([facility])[address] [place] [address] Glucose [Mass/Vol] 166 mg/dL High 70-105 [facility] Comment on above: Order Comment: Waive d Testing in the ED is performed under the ED CLIA certificate #[id number]. Result Comment: elac umsky Performed By: #### L [id number] ####[facility] ([facility])[address] [place] [address] Glucose [Mass/Vol] 215 mg/dL High 70-105 [facility] Comment on above: Order Comment: Waive d Testing in the ED is performed under the ED CLIA certificate #[id number]. Result Comment: [email or web address] Performed By: #### L [id number] ####[facility] ([facility])[address] [place] [address] Glucose [Mass/Vol] 222 mg/dL High 70-105 [facility] Comment on above: Order Comment: Waive d Testing in the ED is performed under the ED CLIA certificate #[id number]. Result Comment: elac umsky Performed By: #### L [id number] ####[facility] ([facility])[address] [place] [address] Glucose [Mass/Vol] 251 mg/dL High 70-105 [facility] Comment on above: Order Comment: Waive d Testing in the ED is performed under the ED CLIA certificate #[id number]. Result Comment: elac umsky Performed By: #### L [id number] ####[facility] ([facility])[address] [place] [address] Glucose [Mass/Vol] 142 mg/dL High 70-105 [facility] Comment on above: Order Comment: Waive d Testing in the ED is performed under the ED CLIA certificate #[id number]. Result Comment: [email or web address] Performed By: #### L [id number] ####[facility] ([facility])[address] [place] [address] Glucose [Mass/Vol] 66 mg/dL Low 70-105 [facility] Comment on above: Order Comment: Waive d Testing in the ED is performed under the ED CLIA certificate #[id number]. Result Comment: [email or web address] Performed By: #### L [id number] ####[facility] ([facility])[address] [place] [address] T4, FREEon 04-27-2024 THYROXINE (T4) FREE (NG/DL) IN SER/PLAS 1.00 ng/dL Normal 0.71-1.85 [facility] Comment on above: Performed By: #### L [id number] ####[facility] ([facility])[address] [place] [address] TSHon 04-27-2024 THYROTROPIN (MIU/L) IN SER/PLAS BY DETECTION LIMIT <= 0.05 MIU/L 6.69 mIU/L High 0.34-5.60 [facility] Comment on above: Performed By: #### L [id number] ####[facility] ([facility])[address] [place] [address] 30on 04-26-[address] [facility] BASIC METABOLIC PANELon 04-06 Anion gap [Moles/Vol] 12 mmol/L Normal 7-20 [facility] Comment on above: Performed By: #### L [id number] ####[facility] ([facility])[address] [place] [address] Calcium [Mass/Vol] 8.0 mg/dL Low 8.6-10.3 [facility] Comment on above: Performed By: #### L [id number] ####[facility] ([facility])[address] [place] [address] Chloride [Moles/Vol] 98 mmol/L Normal 98-107 [facility] Comment on above: Performed By: #### L [id number] ####[facility] ([facility])[address] [place] [address] CO2 [Moles/Vol] 28 mmol/L Normal 21-31 [facility] Comment on above: Performed By: #### L [id number] ####[facility] ([facility])[address] [place] [address] Creatinine [Mass/Vol] 0.78 mg/dL Normal 0.60-1.20 [facility] Comment on above: Performed By: #### L [id number] ####[facility] ([facility])[address] [place] [address] GLOMERULAR FILTRATION RATE ML/MIN/1.73 SQ M.PREDICTED 84.8 mL/min/1.73m*2 Normal >60.0 [facility] Comment on above: Result Comment: The St. [...] of individuals. Performed By: #### L [id number] ####[facility] ([facility])[address] [place] [address] Glucose [Mass/Vol] 456 mg/dL Critically high 70-100 [facility] Comment on above: Performed By: #### L [id number] ####[facility] ([facility])[address] [place] [address] Potassium [Moles/Vol] 4.8 mmol/L Normal 3.5-5.1 [facility] Comment on above: Performed By: #### L [id number] ####[facility] [place] [address] Sodium [Moles/Vol] 133 mmol/L Low 136-145 [facility] Comment on above: Performed By: #### L [id number] ####[facility] [place] [address] Urea nitrogen [Mass/Vol] 22 mg/dL Normal 7-25 [facility] Comment on above: Performed By: #### L [id number] ####[facility] ([facility])[address] [place] [address] UREA NITROGEN/CREATININE (MASS RATIO) IN SER/PLAS 28.[address] [facility] Comment on above: Performed By: #### L [id number] ####[facility] ([facility])[address] [place] [address] BLOOD CULTUREon 04-26-2024 Bacteria identified Cx Nom (Bld) No growth at 5 days Normal [facility] Comment on above: Order Comment: From a different site than #1. Performed By: #### L [id number] ####[facility] [place] [address] Bacteria identified Cx Nom (Bld) No growth at 5 days Normal [facility] Comment on above: Performed By: #### L [id number] ####[facility] [place] [address] CBCon 04-26-2024 Erythrocyte distribution width (RBC) [Ratio] 14.6 % Normal 11.5-15.0 [facility] Comment on above: Performed By: #### L [id number] ####[facility] ([facility] [place] [address] ERYTHROCYTE MEAN CORPUSCULAR HEMOGLOBIN CONCENTRATION (G/DL) BY AUTOMATED 31.0 g/dL Low 32.0-35.0 [facility] Comment on above: Performed By: #### L [id number] ####[facility] ([facility])[address] [place] [address] Hematocrit (Bld) [Volume fraction] 33.2 % Low 36.0-48.0 [facility] Comment on above: Performed By: #### L [id number] ####[facility] ([facility])[address] [address] Hemoglobin (Bld) [Mass/Vol] 10.3 g/dL Low 12.0-15.0 [facility] Comment on above: Performed By: #### L [id number] ####[facility] ([facility])[address] [address] MCH (RBC) [Entitic mass] 30.1 pg Normal 27.0-33.0 [facility] Comment on above: Performed By: #### L [id number] ####[facility] ([facility])[address] [place] [address] MCV (RBC) [Entitic vol] 97.1 fL Normal 82.0-98.0 [facility] Comment on above: Performed By: #### L [id number] ####[facility] ([facility])[address] [place] [address] PLATELETS (10*3/UL) IN BLOOD AUTOMATED COUNT 233 10*3/uL Normal 150-400 [facility] Comment on above: Performed By: #### L [id number] ####[facility] ([facility])[address] [place] [address] RBC (Bld) [#/Vol] 3.42 10*6/uL Low 3.80-5.00 [facility] Comment on above: Performed By: #### L [id number] ####[facility] ([facility])[address] [address] WBC (Bld) [#/Vol] 7.37 10*3/uL Normal 4.00-10.60 [facility] Comment on above: Performed By: #### L [id number] ####[facility] ([facility])[address] [place] [address] CBC WITH AUTO DIFFERENTIALon 04-26-2024 Basophils (Bld) [#/Vol] 0.06 10*3/uL Normal 0.00-0.20 [facility] Comment on above: Performed By: #### L [id number] ####[facility] [place] [address] Basophils/100 WBC (Bld) 0.7 % Normal 0.0-1.0 [facility] Comment on above: Performed By: #### L [id number] ####[facility] ([facility])[address] [place] [address] Eosinophils (Bld) [#/Vol] 0.25 10*3/uL Normal 0.00-0.50 [facility] Comment on above: Performed By: #### L [id number] ####[facility] ([facility])[address] [place] [address] Eosinophils/100 WBC (Bld) 3.1 % Normal 0.0-6.0 [facility] Comment on above: Performed By: #### L [id number] ####[facility] ([facility])[address] [place] [address] Erythrocyte distribution width (RBC) [Ratio] 14.4 % Normal 11.5-15.0 [facility] Comment on above: Performed By: #### L [id number] ####[facility] ([facility])[address] [place] [address] ERYTHROCYTE MEAN CORPUSCULAR HEMOGLOBIN CONCENTRATION (G/DL) BY AUTOMATED 32.2 g/dL Normal 32.0-35.0 [facility] Comment on above: Performed By: #### L [id number] ####[facility] ([facility])[address] [place] [address] Hematocrit (Bld) [Volume fraction] 32.6 % Low 36.0-48.0 [facility] Comment on above: Performed By: #### L [id number] ####[facility] ([facility])[address] [place] [address] Hemoglobin (Bld) [Mass/Vol] 10.5 g/dL Low 12.0-15.0 [facility] Comment on above: Performed By: #### L [id number] ####[facility] ([facility])[address] [place] [address] Immature granulocytes (Bld) [#/Vol] 0.05 10*3/uL Normal 0.00-0.20 [facility] Comment on above: Performed By: #### L [id number] ####[facility] ([facility])[address] [place] [address] Immature granulocytes/100 WBC (Bld) 0.6 % Normal 0.0-1.0 [facility] Comment on above: Performed By: #### L [id number] ####[facility] ([facility])[address] [place] [address] Lymphocytes (Bld) [#/Vol] 0.90 10*3/uL Low 1.20-4.00 [facility] Comment on above: Performed By: #### L [id number] ####[facility] ([facility])[address] [place] [address] Lymphocytes/100 WBC (Bld) 11.0 % Low 20.0-45.0 [facility] Comment on above: Performed By: #### L [id number] ####[facility] ([facility])[address] [place] [address] MCH (RBC) [Entitic mass] 30.0 pg Normal 27.0-33.0 [facility] Comment on above: Performed By: #### L [id number] ####[facility] ([facility])[address] [place] [address] MCV (RBC) [Entitic vol] 93.1 fL Normal 82.0-98.0 [facility] Comment on above: Performed By: #### L [id number] ####[facility] ([facility])[address] [place] [address] Monocytes (Bld) [#/Vol] 0.61 10*3/uL Normal 0.10-1.00 [facility] Comment on above: Performed By: #### L [id number] ####[facility] ([facility])[address] [place] [address] Monocytes/100 WBC (Bld) 7.4 % Normal 5.0-12.0 [facility] Comment on above: Performed By: #### L [id number] ####[facility] ([facility])[address] [place] [address] Neutrophils (Bld) [#/Vol] 6.32 10*3/uL Normal 1.60-7.60 [facility] Comment on above: Performed By: #### L [id number] ####[facility] ([facility])[address] [place] [address] Neutrophils/100 WBC (Bld) 77.2 % High 40.0-72.0 [facility] Comment on above: Performed By: #### L [id number] ####[facility] ([facility])[address] [place] [address] NRBC (PER 100 WBCS) BY AUTOMATED COUNT 0.0 % Normal 0 [facility] Comment on above: Performed By: #### L [id number] ####[facility] ([facility])[address] [place] [address] PLATELETS (10*3/UL) IN BLOOD AUTOMATED COUNT 290 10*3/uL Normal 150-400 [facility] Comment on above: Performed By: #### L [id number] ####[facility] ([facility])[address] [place] [address] RBC (Bld) [#/Vol] 3.50 10*6/uL Low 3.80-5.00 [facility] Comment on above: Performed By: #### L [id number] ####[facility] ([facility])[address] [place] [address] WBC (Bld) [#/Vol] 8.19 10*3/uL Normal 4.00-10.60 [facility] Comment on above: Performed By: #### L [id number] ####[facility] ([facility])[address] [place] [address] LACTIC ACID, PLASMAon 2023 LACTATE (MMOL/L) IN SER/PLAS 1.7 mmol/L Normal 0.5-2.2 [facility] Comment on above: Performed By: #### L [id number] ####[facility] ([facility])[address] [place] [address] MAGNESIUMon 04-26-2024 Magnesium [Mass/Vol] 2.1 mg/dL Normal 1.9-2.7 [facility] Comment on above: Performed By: #### L [id number] ####[facility] ([facility])[address] [place] [address] MRSA/MSSA DNA NASALon 2023 MRSA DNA Negative [...] preclude nasal colonization. Performed By: #### L [id number] ####[facility] ([facility])[address] [place] [address] MSSA DNA Negative [facility] [...] preclude nasal colonization. Performed By: #### L [id number] ####[facility] ([facility])[address] [place] [address] PHOSPHORUSon 04-26-2024 Magnesium [Mass/Vol] 2.4 mg/dL Low 2.5-5.0 [facility] Comment on above: Performed By: #### L [id number] ####[facility] ([facility])[address] [place] [address] POCT GLUCOSE METER UNSOLICIT ED RESULTSon 04-26-2024 Glucose [Mass/Vol] 127 mg/dL High 70-105 [facility] Comment on above: Order Comment: Waive d Testing in the ED is performed under the ED CLIA certificate #[id number]. Result Comment: [email or web address] Performed By: #### L [id number] ####[facility] ([facility])[address] [place] [address] Glucose [Mass/Vol] 221 mg/dL High 70-105 [facility] Comment on above: Order Comment: Waive d Testing in the ED is performed under the ED CLIA certificate #[id number]. Result Comment: owit tko Performed By: #### L [id number] ####[facility] ([facility])[address] [place] [address] Glucose [Mass/Vol] 438 mg/dL High 70-105 [facility] Comment on above: Order Comment: Waive d Testing in the ED is performed under the ED CLIA certificate #[id number]. Result Comment: owit tko Performed By: #### L [id number] ####[facility] ([facility])[address] [place] [address] Glucose [Mass/Vol] 474 mg/dL High 70-105 [facility] Comment on above: Order Comment: Waive d Testing in the ED is performed under the ED CLIA certificate #[id number]. Result Comment: owit tko Performed By: #### L [id number] ####[facility] ([facility])[address] [place] [address] Glucose [Mass/Vol] 480 mg/dL High 70-105 [facility] Comment on above: Order Comment: Waive d Testing in the ED is performed under the ED CLIA certificate #[id number]. Result Comment: stephon campbell Performed By: #### L [id number] ####[facility] ([facility])[address] [place] [address] Glucose [Mass/Vol] 443 mg/dL High 70-105 [facility] Comment on above: Order Comment: Waive d Testing in the ED is performed under the ED CLIA certificate #[id number]. Result Comment: owit tko Performed By: #### L [id number] ####[facility] ([facility])[address] [place] [address] 30on 04-25-[address] [facility] [address] [facility] BASIC METABOLIC PANELon 04-06 Anion gap [Moles/Vol] 9 mmol/L Normal 7-20 [facility] Comment on above: Performed By: #### L [id number] ####[facility] ([facility])[address] [place] [address] Calcium [Mass/Vol] 8.7 mg/dL Normal 8.6-10.3 [facility] Comment on above: Performed By: #### L [id number] ####[facility] ([facility])[address] [place] [address] Chloride [Moles/Vol] 102 mmol/L Normal 98-107 [facility] Comment on above: Performed By: #### L [id number] ####[facility] ([facility])[address] [place] [address] CO2 [Moles/Vol] 29 mmol/L Normal 21-31 [facility] Comment on above: Performed By: #### L [id number] ####[facility] ([facility])[address] [place] [address] Creatinine [Mass/Vol] 0.63 mg/dL Normal 0.60-1.20 [facility] Comment on above: Performed By: #### L [id number] ####[facility] ([facility])[address] [place] [address] GLOMERULAR FILTRATION RATE ML/MIN/1.73 SQ M.PREDICTED 99.0 mL/min/1.73m*2 Normal >60.0 [facility] Comment on above: Result Comment: The St. [...] of individuals. Performed By: #### L [id number] ####[facility] ([facility])[address] [place] [address] Glucose [Mass/Vol] 175 mg/dL High 70-100 [facility] Comment on above: Performed By: #### L [id number] ####[facility] ([facility])[address] [place] [address] Potassium [Moles/Vol] 3.9 mmol/L Normal 3.5-5.1 [facility] Comment on above: Performed By: #### L [id number] ####[facility] ([facility])[address] [place] [address] Sodium [Moles/Vol] 136 mmol/L Normal 136-145 [facility] Comment on above: Performed By: #### L [id number] ####[facility] ([facility])[address] [place] [address] Urea nitrogen [Mass/Vol] 15 mg/dL Normal 7-25 [facility] Comment on above: Performed By: #### L [id number] ####[facility] ([facility])[address] [place] [address] UREA NITROGEN/CREATININE (MASS RATIO) IN SER/PLAS 23.[address] [facility] Comment on above: Performed By: #### L [id number] ####[facility] ([facility])[address] [place] [address] CALCIUM, IONIZEDon CALCIUM IONIZED (MMOL/L) IN BLOOD 1.23 mmol/L Normal 1.15-1.33 [facility] Comment on above: Performed By: #### L [id number] ####[facility] RESPIRATORY [id number] [place] [address] [facility] CBCon 04-25-2024 Erythrocyte distribution width (RBC) [Ratio] 14.5 % Normal 11.5-15.0 [facility] Comment on above: Performed By: #### L [id number] ####[facility] ([facility])[address] [place] [address] ERYTHROCYTE MEAN CORPUSCULAR HEMOGLOBIN CONCENTRATION (G/DL) BY AUTOMATED 33.5 g/dL Normal 32.0-35.0 [facility] Comment on above: Performed By: #### L [id number] ####[facility] ([facility])[address] [place] [address] Hematocrit (Bld) [Volume fraction] 31.0 % Low 36.0-48.0 [facility] Comment on above: Performed By: #### L [id number] ####[facility] ([facility])[address] [place] [address] Hemoglobin (Bld) [Mass/Vol] 10.4 g/dL Low 12.0-15.0 [facility] Comment on above: Performed By: #### L [id number] ####[facility] ([facility])[address] [place] [address] MCH (RBC) [Entitic mass] 30.1 pg Normal 27.0-33.0 [facility] Comment on above: Performed By: #### L [id number] ####[facility] ([facility])[address] [place] [address] MCV (RBC) [Entitic vol] 89.9 fL Normal 82.0-98.0 [facility] Comment on above: Performed By: #### L [id number] ####[facility] ([facility])[address] [place] [address] PLATELETS (10*3/UL) IN BLOOD AUTOMATED COUNT 256 10*3/uL Normal 150-400 [facility] Comment on above: Performed By: #### L [id number] ####[facility] ([facility])[address] [place] [address] RBC (Bld) [#/Vol] 3.45 10*6/uL Low 3.80-5.00 [facility] Comment on above: Performed By: #### L [id number] ####[facility] ([facility])[address] [place] [address] WBC (Bld) [#/Vol] 9.27 10*3/uL Normal 4.00-10.60 [facility] Comment on above: Performed By: #### L [id number] ####[facility] ([facility])[address] [place] [address] MAGNESIUMon 04-25-2024 Magnesium [Mass/Vol] 1.5 mg/dL Low 1.9-2.7 [facility] Comment on above: Performed By: #### L [id number] ####[facility] ([facility])[address] [place] [address] PHOSPHORUSon 04-25-2024 Magnesium [Mass/Vol] 2.0 mg/dL Low 2.5-5.0 [facility] Comment on above: Performed By: #### L [id number] ####[facility] ([facility])[address] [place] [address] Magnesium [Mass/Vol] 1.6 mg/dL Low 2.5-5.0 [facility] Comment on above: Performed By: #### L [id number] ####[facility] [place] [address] POCT GLUCOSE METER UNSOLICIT ED RESULTSon 04-25-2024 Glucose [Mass/Vol] 253 mg/dL High 70-105 [facility] Comment on above: Order Comment: Waive d Testing in the ED is performed under the ED CLIA certificate #[id number]. Result Comment: [email or web address] Performed By: #### L [id number] ####[facility] ([facility])[address] [place] [address] Glucose [Mass/Vol] 283 mg/dL High 70-105 [facility] Comment on above: Order Comment: Waive d Testing in the ED is performed under the ED CLIA certificate #[id number]. Result Comment: elac umsky Performed By: #### L [id number] ####[facility] ([facility])[address] [place] [address] Glucose [Mass/Vol] 379 mg/dL High 70-105 [facility] Comment on above: Order Comment: Waive d Testing in the ED is performed under the ED CLIA certificate #[id number]. Result Comment: [email or web address] Performed By: #### L [id number] ####[facility] ([facility])[address] [place] [address] Glucose [Mass/Vol] 334 mg/dL High 70-105 [facility] Comment on above: Order Comment: Waive d Testing in the ED is performed under the ED CLIA certificate #[id number]. Result Comment: elac umsky Performed By: #### L [id number] ####[facility] ([facility])[address] [place] [address] Glucose [Mass/Vol] 197 mg/dL High 70-105 [facility] Comment on above: Order Comment: Waive d Testing in the ED is performed under the ED CLIA certificate #[id number]. Result Comment: [facility] eub Performed By: #### L [id number] ####[facility] (BEAKER)[address] [place] [address] 30on 04-24-[address] [facility] BASIC METABOLIC PANELon 08-2 Anion gap [Moles/Vol] 10 mmol/L Normal 7-20 [facility] Comment on above: Performed By: #### L [id number] ####[facility] ([facility])[address] [place] [address] Calcium [Mass/Vol] 8.1 mg/dL Low 8.6-10.3 [facility] Comment on above: Performed By: #### L [id number] ####[facility] ([facility])[address] [facility] [address] Chloride [Moles/Vol] 104 mmol/L Normal 98-107 [facility] Comment on above: Performed By: #### L [id number] ####[facility] ([facility])[address] [place] [address] CO2 [Moles/Vol] 27 mmol/L Normal 21-31 [facility] Comment on above: Performed By: #### L [id number] ####[facility] ([facility])[address] [facility] [place] [address] Creatinine [Mass/Vol] 0.74 mg/dL Normal 0.60-1.20 [facility] Comment on above: Performed By: #### L [id number] ####[facility] ([facility])[address] [facility] [place] [address] GLOMERULAR FILTRATION RATE ML/MIN/1.73 SQ M.PREDICTED 90.3 mL/min/1.73m*2 Normal >60.0 [facility] Comment on above: Result Comment: The St. [...] of individuals. Performed By: #### L [id number] ####[facility] ([facility])[address] [place] [address] Glucose [Mass/Vol] 189 mg/dL High 70-100 [facility] Comment on above: Performed By: #### L [id number] ####[facility] ([facility])[address] [place] [address] Potassium [Moles/Vol] 4.2 mmol/L Normal 3.5-5.1 [facility] Comment on above: Performed By: #### L [id number] ####[facility] ([facility])[address] [place] [address] Sodium [Moles/Vol] 137 mmol/L Normal 136-145 [facility] Comment on above: Performed By: #### L [id number] ####[facility] ([facility])[address] [place] [address] Urea nitrogen [Mass/Vol] 19 mg/dL Normal 7-25 [facility] Comment on above: Performed By: #### L [id number] ####[facility] ([facility])[address] [place] [address] UREA NITROGEN/CREATININE (MASS RATIO) IN SER/PLAS 25.[address] [facility] Comment on above: Performed By: #### L [id number] ####[facility] ([facility])[address] [place] [address] CALCIUM, IONIZEDon CALCIUM IONIZED (MMOL/L) IN BLOOD 1.01 mmol/L Low 1.15-1.33 [facility] Comment on above: Performed By: #### L [id number] ####[facility] RESPIRATORY [id number] [place] [address] [place] CBCon 04-24-2024 Erythrocyte distribution width (RBC) [Ratio] 14.3 % Normal 11.5-15.0 [facility] Comment on above: Performed By: #### L [id number] ####[facility] ([facility]ER)[address] [place] [address] ERYTHROCYTE MEAN CORPUSCULAR HEMOGLOBIN CONCENTRATION (G/DL) BY AUTOMATED 32.3 g/dL Normal 32.0-35.0 [facility] Comment on above: Performed By: #### L [id number] ####[facility] [place] [address] Hematocrit (Bld) [Volume fraction] 31.6 % Low 36.0-48.0 [facility] Comment on above: Performed By: #### L [id number] ####[facility] [place] [address] Hemoglobin (Bld) [Mass/Vol] 10.2 g/dL Low 12.0-15.0 [facility] Comment on above: Performed By: #### L [id number] ####[facility] [place] [address] MCH (RBC) [Entitic mass] 30.3 pg Normal 27.0-33.0 [facility] Comment on above: Performed By: #### L [id number] ####[facility] [place] [address] MCV (RBC) [Entitic vol] 93.8 fL Normal 82.0-98.0 [facility] Comment on above: Performed By: #### L [id number] ####[facility] [place] [address] PLATELETS (10*3/UL) IN BLOOD AUTOMATED COUNT 242 10*3/uL Normal 150-400 [facility] Comment on above: Performed By: #### L [id number] ####[facility] ([facility])[address] [place] [address] RBC (Bld) [#/Vol] 3.37 10*6/uL Low 3.80-5.00 [facility] Comment on above: Performed By: #### L [id number] ####[facility] ([facility])[address] [place] [address] WBC (Bld) [#/Vol] 8.93 10*3/uL Normal 4.00-10.60 [facility] Comment on above: Performed By: #### L [id number] ####[facility] ([facility])[address] [place] [address] MAGNESIUMon 04-24-2024 Magnesium [Mass/Vol] 1.7 mg/dL Low 1.9-2.7 [facility] Comment on above: Performed By: #### L [id number] ####[facility] ([facility])[address] [place] [address] POCT GLUCOSE METER UNSOLICIT ED RESULTSon 04-24-2024 Glucose [Mass/Vol] 269 mg/dL High 70-105 [facility] Comment on above: Order Comment: Waive d Testing in the ED is performed under the ED CLIA certificate #[id number]. Result Comment: [email or web address] Performed By: #### L [id number] ####[facility] ([facility])[address] [place] [address] Glucose [Mass/Vol] 361 mg/dL High 70-105 [facility] Comment on above: Order Comment: Waive d Testing in the ED is performed under the ED CLIA certificate #[id number]. Result Comment: elac umsky Performed By: #### L [id number] ####[facility] ([facility])[address] [place] [address] Glucose [Mass/Vol] 185 mg/dL High 70-105 [facility] Comment on above: Order Comment: Waive d Testing in the ED is performed under the ED CLIA certificate #[id number]. Result Comment: elac umsky Performed By: #### L [id number] ####[facility] ([facility])[address] [place] [address] Glucose [Mass/Vol] 209 mg/dL High 70-105 [facility] Comment on above: Order Comment: Waive d Testing in the ED is performed under the ED CLIA certificate #[id number]. Result Comment: elac umsky Performed By: #### L [id number] ####[facility] ([facility])[address] [place] [address] Glucose [Mass/Vol] 199 mg/dL High 70-105 [facility] Comment on above: Order Comment: Waive d Testing in the ED is performed under the ED CLIA certificate #[id number]. Result Comment: [email or web address] Performed By: #### L [id number] ####[facility] ([facility] [place] [address] Glucose [Mass/Vol] 304 mg/dL High 70-105 [facility] Comment on above: Order Comment: Waive d Testing in the ED is performed under the ED CLIA certificate #[id number]. Result Comment: [facility] eub Performed By: #### L [id number] ####[facility] ([facility]ER)[address] [place] [address] BASIC METABOLIC PANELon 04-05 Anion gap [Moles/Vol] 9 mmol/L Normal 7-20 [facility] Comment on above: Performed By: #### L [id number] ####[facility] ([facility])[address] [place] [address] Calcium [Mass/Vol] 8.4 mg/dL Low 8.6-10.3 [facility] Comment on above: Performed By: #### L [id number] ####[facility] ([facility])[address] [place] [address] Chloride [Moles/Vol] 106 mmol/L Normal 98-107 [facility] Comment on above: Performed By: #### L [id number] ####[facility] ([facility])[address] [place] [address] CO2 [Moles/Vol] 25 mmol/L Normal 21-31 [facility] Comment on above: Performed By: #### L [id number] ####[facility] ([facility])[address] [place] [address] Creatinine [Mass/Vol] 0.78 mg/dL Normal 0.60-1.20 [facility] Comment on above: Performed By: #### L [id number] ####[facility] ([facility])[address] [place] [address] GLOMERULAR FILTRATION RATE ML/MIN/1.73 SQ M.PREDICTED 84.8 mL/min/1.73m*2 Normal >60.0 [facility] Comment on above: Result Comment: The St. [...] of individuals. Performed By: #### L [id number] ####[facility] ([facility])[address] [place] [address] Glucose [Mass/Vol] 107 mg/dL High 70-100 [facility] Comment on above: Performed By: #### L [id number] ####[facility] ([facility])[address] [place] [address] Potassium [Moles/Vol] 3.7 mmol/L Normal 3.5-5.1 [facility] Comment on above: Performed By: #### L [id number] ####[facility] ([facility])[address] [place] [address] Sodium [Moles/Vol] 136 mmol/L Normal 136-145 [facility] Comment on above: Performed By: #### L [id number] ####[facility] ([facility])[address] [place] [address] Urea nitrogen [Mass/Vol] 21 mg/dL Normal 7-25 [facility] Comment on above: Performed By: #### L [id number] ####[facility] ([facility])[address] [place] [address] UREA NITROGEN/CREATININE (MASS RATIO) IN SER/PLAS 26.[address] [facility] Comment on above: Performed By: #### L [id number] ####[facility] ([facility])[address] [place] [address] Anion gap [Moles/Vol] 10 mmol/L Normal 7-20 [facility] Comment on above: Performed By: #### L [id number] ####[facility] ([facility])[address] [place] [address] Calcium [Mass/Vol] 8.7 mg/dL Normal 8.6-10.3 [facility] Comment on above: Performed By: #### L [id number] ####[facility] ([facility])[address] [place] [address] Chloride [Moles/Vol] 106 mmol/L Normal 98-107 [facility] Comment on above: Performed By: #### L [id number] ####[facility] ([facility])[address] [place] [address] CO2 [Moles/Vol] 26 mmol/L Normal 21-31 [facility] Comment on above: Performed By: #### L [id number] ####[facility] ([facility])[address] [place] [address] Creatinine [Mass/Vol] 0.87 mg/dL Normal 0.60-1.20 [facility] Comment on above: Performed By: #### L [id number] ####[facility] ([facility])[address] [place] [address] GLOMERULAR FILTRATION RATE ML/MIN/1.73 SQ M.PREDICTED 74.4 mL/min/1.73m*2 Normal >60.0 [facility] Comment on above: Result Comment: The St. [...] of individuals. Performed By: #### L [id number] ####[facility] ([facility] [place] [address] Glucose [Mass/Vol] 175 mg/dL High 70-100 [facility] Comment on above: Performed By: #### L [id number] ####[facility] ([facility])[address] [place] [address] Potassium [Moles/Vol] 4.4 mmol/L Normal 3.5-5.1 [facility] Comment on above: Performed By: #### L [id number] ####[facility] ([facility])[address] [place] [address] Sodium [Moles/Vol] 138 mmol/L Normal 136-145 [facility] Comment on above: Performed By: #### L [id number] ####[facility] ([facility])[address] [place] [address] Urea nitrogen [Mass/Vol] 24 mg/dL Normal 7-25 [facility] Comment on above: Performed By: #### L [id number] ####[facility] ([facility] [place] [address] UREA NITROGEN/CREATININE (MASS RATIO) IN SER/PLAS 27.[address] [facility] Comment on above: Performed By: #### L [id number] ####[facility] ([facility])[address] [place] [address] CBCon 04-23-2024 Erythrocyte distribution width (RBC) [Ratio] 14.0 % Normal 11.5-15.0 [facility] Comment on above: Performed By: #### L [id number] ####[facility] ([facility]ER)[address] [place] [address] ERYTHROCYTE MEAN CORPUSCULAR HEMOGLOBIN CONCENTRATION (G/DL) BY AUTOMATED 29.8 g/dL Low 32.0-35.0 [facility] Comment on above: Performed By: #### L [id number] ####[facility] ([facility])[address] [place] [address] Hematocrit (Bld) [Volume fraction] 22.8 % Low 36.0-48.0 [facility] Comment on above: Performed By: #### L [id number] ####[facility] ([facility])[address] [place] [address] Hemoglobin (Bld) [Mass/Vol] 6.8 g/dL Low 12.0-15.0 [facility] Comment on above: Performed By: #### L [id number] ####[facility] ([facility])[address] [place] [address] MCH (RBC) [Entitic mass] 30.0 pg Normal 27.0-33.0 [facility] Comment on above: Performed By: #### L [id number] ####[facility] ([facility])[address] [place] [address] MCV (RBC) [Entitic vol] 100.4 fL High 82.0-98.0 [facility] Comment on above: Performed By: #### L [id number] ####[facility] ([facility])[address] [place] [address] PLATELETS (10*3/UL) IN BLOOD AUTOMATED COUNT 229 10*3/uL Normal 150-400 [facility] Comment on above: Performed By: #### L [id number] ####[facility] ([facility])[address] [place] [address] RBC (Bld) [#/Vol] 2.27 10*6/uL Low 3.80-5.00 [facility] Comment on above: Performed By: #### L [id number] ####[facility] ([facility])[address] [place] [address] WBC (Bld) [#/Vol] 8.76 10*3/uL Normal 4.00-10.60 [facility] Comment on above: Performed By: #### L [id number] ####[facility] ([facility])[address] [place] [address] Erythrocyte distribution width (RBC) [Ratio] 13.8 % Normal 11.5-15.0 [facility] Comment on above: Performed By: #### L [id number] ####[facility] ([facility])[address] [place] [address] ERYTHROCYTE MEAN CORPUSCULAR HEMOGLOBIN CONCENTRATION (G/DL) BY AUTOMATED 32.5 g/dL Normal 32.0-35.0 [facility] Comment on above: Performed By: #### L [id number] ####[facility] ([facility])[address] [place] [address] Hematocrit (Bld) [Volume fraction] 25.2 % Low 36.0-48.0 [facility] Comment on above: Performed By: #### L [id number] ####[facility] ([facility])[address] [place] [address] Hemoglobin (Bld) [Mass/Vol] 8.2 g/dL Low 12.0-15.0 [facility] Comment on above: Performed By: #### L [id number] ####[facility] ([facility])[address] [place] [address] MCH (RBC) [Entitic mass] 30.5 pg Normal 27.0-33.0 [facility] Comment on above: Performed By: #### L [id number] ####[facility] ([facility])[address] [place] [address] MCV (RBC) [Entitic vol] 93.7 fL Normal 82.0-98.0 [facility] Comment on above: Performed By: #### L [id number] ####[facility] ([facility])[address] [place] [address] PLATELETS (10*3/UL) IN BLOOD AUTOMATED COUNT 268 10*3/uL Normal 150-400 [facility] Comment on above: Performed By: #### L [id number] ####[facility] ([facility])[address] [place] [address] RBC (Bld) [#/Vol] 2.69 10*6/uL Low 3.80-5.00 [facility] Comment on above: Performed By: #### L [id number] ####[facility] ([facility])[address] [place] [address] WBC (Bld) [#/Vol] 9.30 10*3/uL Normal 4.00-10.60 [facility] Comment on above: Performed By: #### L [id number] ####[facility] ([facility])[address] [place] [address] MAGNESIUMon 04-23-2024 Magnesium [Mass/Vol] 1.4 mg/dL Low 1.9-2.7 [facility] Comment on above: Performed By: #### L [id number] ####[facility] ([facility])[address] [place] [address] NURSNOTEon 04-23-[address] [facility] PHOSPHORUSon 04-23-2024 Magnesium [Mass/Vol] 3.2 mg/dL Normal 2.5-5.0 [facility] Comment on above: Performed By: #### L [id number] ####[facility] ([facility])[address] [place] [address] POCT GLUCOSE METER UNSOLICIT ED RESULTSon 04-23-2024 Glucose [Mass/Vol] 301 mg/dL High 70-105 [facility] Comment on above: Order Comment: Waive d Testing in the ED is performed under the ED CLIA certificate #[id number]. Result Comment: [facility] eub Performed By: #### L [id number] ####[facility] ([facility])[address] [place] [address] Glucose [Mass/Vol] 138 mg/dL High 70-105 [facility] Comment on above: Order Comment: Waive d Testing in the ED is performed under the ED CLIA certificate #[id number]. Result Comment: nsch eub Performed By: #### L [id number] ####[facility] ([facility]ER)[address] [place] [address] Glucose [Mass/Vol] 156 mg/dL High 70-105 [facility] Comment on above: Order Comment: Waive d Testing in the ED is performed under the ED CLIA certificate #[id number]. Result Comment: [email or web address] Performed By: #### L [id number] ####[facility] ([facility]ER)[address] [place] [address] Glucose [Mass/Vol] 198 mg/dL High 70-105 [facility] Comment on above: Order Comment: Waive d Testing in the ED is performed under the ED CLIA certificate #[id number]. Result Comment: [email or web address] Performed By: #### L [id number] ####[facility] (BEAKER)[address] [place] [address] Glucose [Mass/Vol] 252 mg/dL High 70-105 [facility] Comment on above: Order Comment: Waive d Testing in the ED is performed under the ED CLIA certificate #[id number]. Result Comment: [email or web address] Performed By: #### L [id number] ####[facility] (BEClean PET)[address] [place] [address] Glucose [Mass/Vol] 182 mg/dL High 70-105 [facility] Comment on above: Order Comment: Waive d Testing in the ED is performed under the ED CLIA certificate #[id number]. Result Comment: [email or web address] [email or web address] Performed By: #### L [id number] ####[facility] (BE[facility]ER)[address] [place] [address] Glucose [Mass/Vol] 189 mg/dL High 70-105 [facility] Comment on above: Order Comment: Waive d Testing in the ED is performed under the ED CLIA certificate #[id number]. Result Comment: alaf [email or web address] Performed By: #### L [id number] ####[facility] ([facility]ER)[address] [place] [address] [id number] 04-22-[id number] [facility] ANESon 04-22-[address] [facility] ANES Normal [facility] Anesthesiaon 04-22-2024 Anesthesia [id number] LuciusMonica 1960 F Date Provider Department [place] 04/22/2024 CHRISTIANE AVENDANO [facility] OR [facility] C No family history on file Normal [facility] BASIC METABOLIC PANELon 04-05 Anion gap [Moles/Vol] 14 mmol/L Normal 7-20 [facility] Comment on above: Performed By: #### L [id number] ####[facility] (BEAKER)[address] [place] [address] Calcium [Mass/Vol] 8.6 mg/dL Normal 8.6-10.3 [facility] Comment on above: Performed By: #### L [id number] ####[facility] (BEAKER)[address] [place] [address] Chloride [Moles/Vol] 102 mmol/L Normal 98-107 [facility] Comment on above: Performed By: #### L [id number] ####[facility] (BEAKER)[address] [place] [address] CO2 [Moles/Vol] 23 mmol/L Normal 21-31 [facility] Comment on above: Performed By: #### L [id number] ####[facility] (BEAKER)[address] [place] [address] Creatinine [Mass/Vol] 0.81 mg/dL Normal 0.60-1.20 [facility] Comment on above: Performed By: #### L [id number] ####[facility] (BEAKER)[address] [place] [address] GLOMERULAR FILTRATION RATE ML/MIN/1.73 SQ M.PREDICTED 81.0 mL/min/1.73m*2 Normal >60.0 [facility] Comment on above: Result Comment: The St. [...] of individuals. Performed By: #### L [id number] ####[facility] (BEAKER)[address] [place] [address] Glucose [Mass/Vol] 342 mg/dL High 70-100 [facility] Comment on above: Performed By: #### L [id number] ####[facility] (BEAKER)[address] [place] [address] Potassium [Moles/Vol] 4.5 mmol/L Normal 3.5-5.1 [facility] Comment on above: Performed By: #### L [id number] ####[facility] (BEAKER)[address] [place] [address] Sodium [Moles/Vol] 134 mmol/L Low 136-145 [facility] Comment on above: Performed By: #### L [id number] ####[facility] (BEAKER)[address] [place] [address] Urea nitrogen [Mass/Vol] 28 mg/dL High 7-25 [facility] Comment on above: Performed By: #### L [id number] ####[facility] (BEAKER)[address] [place] [address] UREA NITROGEN/CREATININE (MASS RATIO) IN SER/PLAS 34.[address] [facility] Comment on above: Performed By: #### L [id number] ####[facility] (BEAKER)[address] [place] [address] CBC WITH AUTO DIFFERENTIALon 04-22-2024 Basophils (Bld) [#/Vol] 0.06 10*3/uL Normal 0.00-0.20 [facility] Comment on above: Performed By: #### L [id number] ####[facility] (BEAKER)[address] [place] [address] Basophils/100 WBC (Bld) 0.5 % Normal 0.0-1.0 [facility] Comment on above: Performed By: #### L [id number] ####[facility] (BEAKER)[address] [place] [address] Eosinophils (Bld) [#/Vol] 0.22 10*3/uL Normal 0.00-0.50 [facility] Comment on above: Performed By: #### L [id number] ####[facility] (BEAKER)[address] [place] [address] Eosinophils/100 WBC (Bld) 1.9 % Normal 0.0-6.0 [facility] Comment on above: Performed By: #### L [id number] ####[facility] (BEAKER)[address] [place] [address] Erythrocyte distribution width (RBC) [Ratio] 13.5 % Normal 11.5-15.0 [facility] Comment on above: Performed By: #### L [id number] ####[facility] (BEAKER)[address] [place] [address] ERYTHROCYTE MEAN CORPUSCULAR HEMOGLOBIN CONCENTRATION (G/DL) BY AUTOMATED 31.4 g/dL Low 32.0-35.0 [facility] Comment on above: Performed By: #### L [id number] ####[facility] (BEAKER)[address] [place] [address] Hematocrit (Bld) [Volume fraction] 36.0 % Normal 36.0-48.0 [facility] Comment on above: Performed By: #### L [id number] ####[facility] (BEAKER)[address] [place] [address] Hemoglobin (Bld) [Mass/Vol] 11.3 g/dL Low 12.0-15.0 [facility] Comment on above: Performed By: #### L [id number] ####[facility] [place] [address] Immature granulocytes (Bld) [#/Vol] 0.05 10*3/uL Normal 0.00-0.20 [facility] Comment on above: Performed By: #### L [id number] ####[facility] ([facility])[address] [place] [address] Immature granulocytes/100 WBC (Bld) 0.4 % Normal 0.0-1.0 [facility] Comment on above: Performed By: #### L [id number] ####[facility] ([facility])[address] [place] [address] Lymphocytes (Bld) [#/Vol] 0.93 10*3/uL Low 1.20-4.00 [facility] Comment on above: Performed By: #### L [id number] ####[facility] ([facility])[address] [place] [address] Lymphocytes/100 WBC (Bld) 8.1 % Low 20.0-45.0 [facility] Comment on above: Performed By: #### L [id number] ####[facility] ([facility])[address] [place] [address] MCH (RBC) [Entitic mass] 30.3 pg Normal 27.0-33.0 [facility] Comment on above: Performed By: #### L [id number] ####[facility] ([facility] [place] [address] MCV (RBC) [Entitic vol] 96.5 fL Normal 82.0-98.0 [facility] Comment on above: Performed By: #### L [id number] ####[facility] (BEAKER)[address] [place] [address] Monocytes (Bld) [#/Vol] 0.89 10*3/uL Normal 0.10-1.00 [facility] Comment on above: Performed By: #### L [id number] ####[facility] ([facility]AKER)[address] [place], [place] [address] Monocytes/100 WBC (Bld) 7.7 % Normal 5.0-12.0 [facility] Comment on above: Performed By: #### L [id number] ####[facility] (BEAKER)[address] [place] [address] Neutrophils (Bld) [#/Vol] 9.38 10*3/uL High 1.60-7.60 [facility] Comment on above: Performed By: #### L [id number] ####[facility] (BEAKER)[address] [place], [place] [address] Neutrophils/100 WBC (Bld) 81.4 % High 40.0-72.0 [facility] Comment on above: Performed By: #### L [id number] ####[facility] (BEAKER)[address] [place], [place] [address] NRBC (PER 100 WBCS) BY AUTOMATED COUNT 0.0 % Normal 0 [facility] Comment on above: Performed By: #### L [id number] ####[facility] (BEAKER)[address] [place], [place] [address] PLATELETS (10*3/UL) IN BLOOD AUTOMATED COUNT 325 10*3/uL Normal 150-400 [facility] Comment on above: Performed By: #### L [id number] ####[facility] (BEAKER)[address] [place], [place] [address] RBC (Bld) [#/Vol] 3.73 10*6/uL Low 3.80-5.00 [facility] Comment on above: Performed By: #### L [id number] ####[facility] (BEAKER)[address] [place], [place] [address] WBC (Bld) [#/Vol] 11.53 10*3/uL High 4.00-10.60 [facility] Comment on above: Performed By: #### L [id number] ####[facility] (BEAKER)[address] [place] [address] EDPROVon 04-22-2024 EDPROV Invalid Interpretation Code [facility] HPon 04-22-2024 HP H&P reviewed. The patient was examined and there are no changes to the H&P. Normal [facility] MAGNESIUMon 04-22-2024 Magnesium [Mass/Vol] 1.5 mg/dL Low 1.9-2.7 [facility] Comment on above: Performed By: #### L [id number] ####[facility] ([facility])[address] [place] [address] MRSA/MSSA DNA NASALon 2023 MRSA DNA Negative [...] preclude nasal colonization. Performed By: #### L [id number] ####[facility] ([facility])[address] [place] [address] MSSA DNA Negative [facility] [...] preclude nasal colonization. Performed By: #### L [id number] ####[facility] ([facility])[address] [place] [address] NURSNOTEon 04-22-2024 NURSNOTE This com writer attempte d to get information about [...] 04-22-2024 Magnesium [Mass/Vol] 4.2 mg/dL Normal 2.5-5.0 [facility] Comment on above: Performed By: #### L [id number] ####[facility] ([facility])[address] [place] [address] POCT GLUCOSE METER UNSOLICIT ED RESULTSon 04-22-2024 Glucose [Mass/Vol] 187 mg/dL High 70-105 [facility] Comment on above: Order Comment: Waive d Testing in the ED is performed under the ED CLIA certificate #[id number]. Result Comment: [email or web address] Performed By: #### L [id number] ####[facility] ([facility] [place] [address] Glucose [Mass/Vol] 256 mg/dL High 70-105 [facility] Comment on above: Order Comment: Waive d Testing in the ED is performed under the ED CLIA certificate #[id number]. Result Comment: [email or web address] Performed By: #### L [id number] ####[facility] ([employer])[address] [place] [address] Glucose [Mass/Vol] 247 mg/dL High 70-105 [facility] Comment on above: Order Comment: Waive d Testing in the ED is performed under the ED CLIA certificate #[id number]. Result Comment: [email or web address] Performed By: #### L [id number] ####[facility] ([facility])[address] [place] [address] Glucose [Mass/Vol] 213 mg/dL High 70-105 [facility] Comment on above: Order Comment: Waive d Testing in the ED is performed under the ED CLIA certificate #[id number]. Result Comment: [email or web address] Performed By: #### L [id number] ####[facility] ([facility])[address] [place] [address] Glucose [Mass/Vol] 247 mg/dL High 70-105 [facility] Comment on above: Order Comment: Waive d Testing in the ED is performed under the ED CLIA certificate #[id number]. Result Comment: [email or web address] Performed By: #### L [id number] ####[facility] ([facility])[address] [place] [address] Glucose [Mass/Vol] 316 mg/dL High 70-105 [facility] Comment on above: Order Comment: Waive d Testing in the ED is performed under the ED CLIA certificate #[id number]. Result Comment: czyd orc Performed By: #### L [id number] ####[facility] ([facility])[address] [place] [address] Glucose [Mass/Vol] 343 mg/dL High 70-105 [facility] Comment on above: Order Comment: Waive d Testing in the ED is performed under the ED CLIA certificate #[id number]. Result Comment: czyd orc Performed By: #### L [id number] ####[facility] ([facility])[address] [place] [address] Glucose [Mass/Vol] 354 mg/dL High 70-105 [facility] Comment on above: Order Comment: Waive d Testing in the ED is performed under the ED CLIA certificate #[id number]. Result Comment: [email or web address] Performed By: #### L [id number] ####[facility] ([facility])[address] [place] [address] Glucose [Mass/Vol] 358 mg/dL High 70-105 [facility] Comment on above: Order Comment: Waive d Testing in the ED is performed under the ED CLIA certificate #[id number]. Result Comment: [email or web address] Performed By: #### L [id number] ####[facility] ([facility])[address] [facility] [place] [address] TOXICOLOGY PANEL URINEon AMPHETAMINE+METHAMPHE TAMINE SCREEN (PRESENCE) IN URINE Negative Normal Negative [facility] Comment on above: Performed By: #### L [id number] ####[facility] ([facility])[address] [facility] [place] [address] BARBITURATES PRESENCE IN URINE BY SCREEN METHOD Negative Normal Negative [facility] Comment on above: Performed By: #### L [id number] ####[facility] ([facility])[address] [facility] [place] [address] Benzodiazepines Ql (U) Positive Abnormal Negative [facility] Comment on above: Performed By: #### L [id number] ####[facility] ([facility])[address] [facility] [place] [address] CANNABINOID (PRESENCE) IN URINE BY SCREEN METHOD Negative Normal Negative [facility] Comment on above: Performed By: #### L [id number] ####[facility] ([facility])[address] [facility] [place] [address] Cocaine Ql (U) Negative Normal Negative [facility] Comment on above: Performed By: #### L [id number] ####[facility] ([facility])[address] [facility] [place] [address] METHADONE (PRESENCE) IN URINE BY SCREEN METHOD Negative Normal Negative [facility] Comment on above: Performed By: #### L [id number] ####[facility] ([facility])[address] [facility] [place] [address] OPIATES (PRESENCE) IN URINE BY SCREEN METHOD Positive Abnormal Negative [facility] Comment on above: Performed By: #### L [id number] ####[facility] ([facility])[address] [facility] [place] [address] PHENCYCLIDINE PRESENCE IN URINE BY SCREEN METHOD Negative Normal Negative [facility] Comment on above: Performed By: #### L [id number] ####[facility] ([facility])[address] [facility] [place] [address] Propoxyphene Screen Ql (U) Negative Normal Negative [facility] Comment on above: Performed By: #### L [id number] ####[facility] (BEAKER)[address] [place] [address] TRICYCLIC ANTIDEPRESSANTS (PRESENCE) IN URINE Positive Abnormal Negative [facility] Comment on above: Performed By: #### L [id number] ####[facility] (BEAKER)[address] [place] [address] URINALYSIS WITH MICROSCOPICo n 04-22-2024 BILIRUBIN, TOTAL PRESENCE IN URINE Negative Normal Negative [facility] Comment on above: Performed By: #### L [id number] ####[facility] (BEAKER)[address] [place] [address] Clarity (U) Clear Normal Clear [facility] Comment on above: Performed By: #### L [id number] ####[facility] (BEAKER)[address] [place] [address] Color (U) Yellow Normal Yellow [facility] Comment on above: Performed By: #### L [id number] ####[facility] (BEAKER)[address] [place] [address] Glucose (U) [Mass/Vol] 50 mg/dL Abnormal Negative [facility] Comment on above: Performed By: #### L [id number] ####[facility] (BEAKER)[address] [place] [address] HEMOGLOBIN PRESENCE IN URINE Negative Normal Negative [facility] Comment on above: Performed By: #### L [id number] ####[facility] (BEAKER)[address] [place] [address] Ketones Ql (U) Negative Normal Negative [facility] Comment on above: Performed By: #### L [id number] ####[facility] (BEAKER)[address] [place] [address] LEUKOCYTE ESTERASE PRESENCE IN URINE BY TEST STRIP Negative Normal Negative [facility] Comment on above: Performed By: #### L [id number] ####[facility] (BEAKER)[address] [place] [address] MUCUS (#/HPF) IN URINE SEDIMENT Occasional Normal None Seen, Occasional, Few [facility] Comment on above: Performed By: #### L [id number] ####[facility] ([facility])[address] [place] [address] NITRITE PRESENCE IN URINE Negative Normal Negative [facility] Comment on above: Performed By: #### L [id number] ####[facility] ([facility])[address] [place] [address] pH (U) 5.0 [pH] Normal 5.0-8.0 [facility] Comment on above: Performed By: #### L [id number] ####[facility] ([facility])[address] [place] [address] Protein (U) [Mass/Vol] Negative Normal Negative [facility] Comment on above: Performed By: #### L [id number] ####[facility] ([facility])[address] [place] [address] RBC (#/HPF) IN URINE SEDIMENT None Seen Normal None Seen [facility] Comment on above: Performed By: #### L [id number] ####[facility] ([facility])[address] [place] [address] Specific gravity (U) [Rel density] 1.048 High 1.015-1.020 [facility] Comment on above: Performed By: #### L [id number] ####[facility] ([facility])[address] [place] [address] SQUAMOUS EPITHELIAL CELLS (#/HPF) IN URINE SEDIMENT Many Abnormal None Seen, Occasional [facility] Comment on above: Performed By: #### L [id number] ####[facility] ([facility] [place] [address] WBC (LEUKOCYTE) (#/HPF) IN URINE SEDIMENT None Seen Normal None Seen [facility] Comment on above: Performed By: #### L [id number] ####[facility] ([facility])[address] [place] [address] APTTon 04-21-2024 ACTIVATED PARTIAL THROMBOPLASTIN TIME IN PPP BY COAGULATION ASSAY 22.9 Seconds Low 25.0-35.0 [facility] Comment on above: Result Comment: Clin ical significance of the APTT is questionable in the presence of heparin. Performed By: #### L [id number] ####[facility] (BEAKER)[address] [place] [address] BASIC METABOLIC PANELon - Anion gap [Moles/Vol] 8 mmol/L Normal 7-20 [facility] Comment on above: Performed By: #### L [id number] ####[facility] ([facility])[address] [place] [address] Calcium [Mass/Vol] 9.1 mg/dL Normal 8.6-10.3 [facility] Comment on above: Performed By: #### L [id number] ####[facility] ([facility])[address] [place] [address] Chloride [Moles/Vol] 105 mmol/L Normal 98-107 [facility] Comment on above: Performed By: #### L [id number] ####[facility] ([facility] [place] [address] CO2 [Moles/Vol] 27 mmol/L Normal 21-31 [facility] Comment on above: Performed By: #### L [id number] ####[facility] ([facility] [place] [address] Creatinine [Mass/Vol] 0.77 mg/dL Normal 0.60-1.20 [facility] Comment on above: Performed By: #### L [id number] ####[facility] ([facility])[address] [place] [address] GLOMERULAR FILTRATION RATE ML/MIN/1.73 SQ M.PREDICTED 86.1 mL/min/1.73m*2 Normal >60.0 [facility] Comment on above: Result Comment: The St. [...] of individuals. Performed By: #### L [id number] ####[facility] ([facility])[address] [place] [address] Glucose [Mass/Vol] 158 mg/dL High 70-100 [facility] Comment on above: Performed By: #### L [id number] ####[facility] ([facility])[address] [place] [address] Potassium [Moles/Vol] 4.1 mmol/L Normal 3.5-5.1 [facility] Comment on above: Performed By: #### L [id number] ####[facility] ([facility])[address] [facility] [place] [address] Sodium [Moles/Vol] 136 mmol/L Normal 136-145 [facility] Comment on above: Performed By: #### L [id number] ####[facility] ([facility])[address] [place] [address] Urea nitrogen [Mass/Vol] 31 mg/dL High 7-25 [facility] Comment on above: Performed By: #### L [id number] ####[facility] ([facility])[address] [facility] [place] [address] UREA NITROGEN/CREATININE (MASS RATIO) IN SER/PLAS 40.[address] [facility] Comment on above: Performed By: #### L [id number] ####[facility] ([facility])[address] [facility] [place] [address] CBC WITH AUTO DIFFERENTIALon 04-21-2024 Basophils (Bld) [#/Vol] 0.03 10*3/uL Normal 0.00-0.20 [facility] Comment on above: Performed By: #### L [id number] ####[facility] (BEAKER)[address] [place] [address] Basophils/100 WBC (Bld) 0.2 % Normal 0.0-1.0 [facility] Comment on above: Performed By: #### L [id number] ####[facility] (BEAKER)[address] [place] [address] Eosinophils (Bld) [#/Vol] 0.23 10*3/uL Normal 0.00-0.50 [facility] Comment on above: Performed By: #### L [id number] ####[facility] (BEAKER)[address] [place] [address] Eosinophils/100 WBC (Bld) 1.8 % Normal 0.0-6.0 [facility] Comment on above: Performed By: #### L [id number] ####[facility] (BEAKER)[address] [place] [address] Erythrocyte distribution width (RBC) [Ratio] 13.3 % Normal 11.5-15.0 [facility] Comment on above: Performed By: #### L [id number] ####[facility] (BEAKER)[address] [place] [address] ERYTHROCYTE MEAN CORPUSCULAR HEMOGLOBIN CONCENTRATION (G/DL) BY AUTOMATED 32.7 g/dL Normal 32.0-35.0 [facility] Comment on above: Performed By: #### L [id number] ####[facility] (BEAKER)[address] [place] [address] Hematocrit (Bld) [Volume fraction] 35.5 % Low 36.0-48.0 [facility] Comment on above: Performed By: #### L [id number] ####[facility] (BEAKER)[address] [place] [address] Hemoglobin (Bld) [Mass/Vol] 11.6 g/dL Low 12.0-15.0 [facility] Comment on above: Performed By: #### L [id number] ####[facility] (BEAKER)[address] [place] [address] Immature granulocytes (Bld) [#/Vol] 0.04 10*3/uL Normal 0.00-0.20 [facility] Comment on above: Performed By: #### L [id number] ####[facility] (BEAKER)[address] [place] [address] Immature granulocytes/100 WBC (Bld) 0.3 % Normal 0.0-1.0 [facility] Comment on above: Performed By: #### L [id number] ####[facility] (BEAKER)[address] [place] [address] Lymphocytes (Bld) [#/Vol] 1.65 10*3/uL Normal 1.20-4.00 [facility] Comment on above: Performed By: #### L [id number] ####[facility] (BEAKER)[address] [place] [address] Lymphocytes/100 WBC (Bld) 12.6 % Low 20.0-45.0 [facility] Comment on above: Performed By: #### L [id number] ####[facility] (BEAKER)[address] [place] [address] MCH (RBC) [Entitic mass] 30.0 pg Normal 27.0-33.0 [facility] Comment on above: Performed By: #### L [id number] ####[facility] (BEAKER)[address] [place] [address] MCV (RBC) [Entitic vol] 91.7 fL Normal 82.0-98.0 [facility] Comment on above: Performed By: #### L [id number] ####[facility] (BEAKER)[address] [place] [address] Monocytes (Bld) [#/Vol] 1.02 10*3/uL High 0.10-1.00 [facility] Comment on above: Performed By: #### L [id number] ####[facility] (BEAKER)[address] [place] [address] Monocytes/100 WBC (Bld) 7.8 % Normal 5.0-12.0 [facility] Comment on above: Performed By: #### L [id number] ####[facility] ([facility])[address] [place] [address] Neutrophils (Bld) [#/Vol] 10.12 10*3/uL High 1.60-7.60 [facility] Comment on above: Performed By: #### L [id number] ####[facility] ([facility])[address] [place] [address] Neutrophils/100 WBC (Bld) 77.3 % High 40.0-72.0 [facility] Comment on above: Performed By: #### L [id number] ####[facility] ([facility])[address] [place] [address] NRBC (PER 100 WBCS) BY AUTOMATED COUNT 0.0 % Normal 0 [facility] Comment on above: Performed By: #### L [id number] ####[facility] ([facility])[address] [place] [address] PLATELETS (10*3/UL) IN BLOOD AUTOMATED COUNT 334 10*3/uL Normal 150-400 [facility] Comment on above: Performed By: #### L [id number] ####[facility] ([facility])[address] [place] [address] RBC (Bld) [#/Vol] 3.87 10*6/uL Normal 3.80-5.00 [facility] Comment on above: Performed By: #### L [id number] ####[facility] ([facility])[address] [place] [address] WBC (Bld) [#/Vol] 13.09 10*3/uL High 4.00-10.60 [facility] Comment on above: Performed By: #### L [id number] ####[facility] [place] [address] CONSULTon 04-21-[address] [facility] [...] Normal [facility] EDNURS Transfer from [place] Normal [facility] EDPROVon 04-21-[address] [facility] ETHANOLon 04-21-2024 ETHANOL (MG/DL) IN SER/PLAS <[address] [facility] Comment on above: Performed By: #### L [id number] ####[facility] (BEAKER)[address] [facility] [place] [address] ETHANOL CALCULATED (%) Normal [facility] Comment on above: Performed By: #### L [id number] ####[facility] (BEAKER)[address] [facility] [place] [address] HEPATIC FUNCTION PANELon Albumin [Mass/Vol] 3.5 g/dL Normal 3.5-5.7 [facility] Comment on above: Performed By: #### L [id number] ####[facility] (BEAKER)[address] [facility] [place] [address] ALP [Catalytic activity/Vol] 240 U/L High 34-104 [facility] Comment on above: Performed By: #### L [id number] ####[facility] (BEAKER)[address] [facility] [place] [address] ALT [Catalytic activity/Vol] 72 U/L High 7-52 [facility] Comment on above: Performed By: #### L [id number] ####[facility] (BEAKER)[address] [place] [address] AST [Catalytic activity/Vol] 131 U/L High 13-39 [facility] Comment on above: Performed By: #### L [id number] ####[facility] [place] [address] Bilirubin [Mass/Vol] 0.3 mg/dL Normal 0.3-1.0 [facility] Comment on above: Performed By: #### L [id number] ####[facility] ([facility])[address] [place] [address] Magnesium [Mass/Vol] 0.1 mg/dL Normal 0-0.2 [facility] Comment on above: Performed By: #### L [id number] ####[facility] ([facility])[address] [place] [address] Protein [Mass/Vol] 6.8 g/dL Normal 6.0-8.3 [facility] Comment on above: Performed By: #### L [id number] ####[facility] ([facility])[address] [place] [address] HPon 04-21-[address] [facility] HP Normal [facility] LACTIC ACID, PLASMAon 2023 LACTATE (MMOL/L) IN SER/PLAS 0.9 mmol/L Normal 0.5-2.2 [facility] Comment on above: Performed By: #### L [id number] ####[facility] ([facility])[address] [place] [address] LIPASEon 04-21-2024 LIPASE (U/L) IN SER/PLAS 8 U/L Low 11-82 [facility] Comment on above: Performed By: #### L [id number] ####[facility] ([facility])[address] [place] [address] PROTIME-INRon 04-21-2024 INR IN PPP BY COAGULATION ASSAY 0.99 Normal 0.90-1.10 [facility] Comment on above: Result Comment: [facility] RECOMMENDED INR FOR WARFARIN THERAPY CONDITION INRPROPHYLAXIS OF VENOUS THROMBOSIS 2-3(HIGH-RISK SURGERY)TREATMENT OF VENOUS THROMBOSIS 2-3TREATMENT OF PULMONARY EMBOLISM 2-3PREVENTION OF SYSTEMIC EMBOLISM: 2-3 ACUTE MYOCARDIAL INFARCTION TISSUE HEART VALVES VALVULAR HEART DISEASE ATRIAL FIBRILLATION RECURRENT SYSTEMIC EMBOLISMMECHANICAL HEART VALVE 2.5-3.5 FROM: ORAL ANTICOAGULANTS. MECHANISM OF ACTION, CLINICAL EFFECTIVENESS, AND OPTIMAL THERAPEUTIC RANGE. CHEST 1995;108:231S-246S. Performed By: #### L [id number] ####[facility] ([facility])[address] [place] [address] PROTHROMBIN TIME (PT) IN PPP BY COAGULATION ASSAY 13.1 Seconds Normal 12.3-14.8 [facility] Comment on above: Performed By: #### L [id number] ####[facility] ([facility])[address] [place] [address] TROPONIN Ion 04-21-2024 Troponin I.cardiac [Mass/Vol] 0.01 ng/mL Normal 0.00-0.04 [facility] Comment on above: Performed By: #### L [id number] ####[facility] ([facility])[address] [place] [address] TYPE AND SCREENon 04-21-[address] Normal [facility] Comment on above: Performed By: #### L [id number] ####[facility] BLOOD BANK, ABO group Nom (Bld) A Normal [facility] Comment on above: Performed By: #### L [id number] ####[facility] BLOOD BANK, RH TYPE IN BLOOD Positive Normal [facility] Comment on above: Performed By: #### L [id number] ####[facility] BLOOD BANK, VITAMIN D 25 HYDROXYon 04-21 CALCIDIOL (25 [place] VITAMIN D3) (NG/ML) IN SER/PLAS 34.8 ng/mL Normal 30.0-80.0 [facility] Comment on above: Result Comment: >80. 0 Toxicity possible Performed By: #### L [id number] ####[facility] HOSPITAL LAB (BEAKER)[address] [place] [address] BASIC METABOLIC PANLon 04-13 Anion gap [Moles/Vol] 10 mmol/L Normal 5-15 [facility] Comment on above: Performed By: #### B MP #### [facility] ([id number]) [address], [address] [place] [address] Calcium [Mass/Vol] 9.9 mg/dL Normal 8.5-10.5 [facility] Comment on above: Performed By: #### B MP #### [facility] ([id number]) [address], [address] [place] [address] Chloride [Moles/Vol] 100 mmol/L Normal 98-109 [facility] Comment on above: Performed By: #### B MP #### [facility] ([id number]) [address], [address] [place] [address] CO2 [Moles/Vol] 27 mmol/L Normal 22-32 [facility] Comment on above: Performed By: #### B MP #### [facility] ([id number]) [address], [address] [place] [address] Creatinine [Mass/Vol] 0.92 mg/dL Normal 0.40-1.00 [facility] Comment on above: Result Comment: METH OD TRACEABLE TO IDMS STANDARD Performed By: #### B MP #### [facility] ([id number]) [address], [address] [place] [address] GFR/1.73 sq M.predicted among non-blacks MDRD (S/P/Bld) [Vol rate/Area] 70 mL/min/{1.73_m2} Normal >59 [facility] Comment on above: Result Comment: Reported eGFR is based on the CKD-EPI 2020 equation that does not use a race coefficient. Performed By: #### B MP #### [facility] ([id number]) [address], [address] [place] [address] Glucose [Mass/Vol] 151 mg/dL High 65-99 [facility] Comment on above: Performed By: #### B MP #### [facility] ([id number]) [address], [address] [place] [address] Potassium [Moles/Vol] 4.5 mmol/L Normal 3.5-5.0 [facility] Comment on above: Performed By: #### B MP #### [facility] ([id number]) [address], [address] [place] [address] Sodium [Moles/Vol] 137 mmol/L Normal 134-146 [facility] Comment on above: Performed By: #### B MP #### [facility] ([id number]) [address], [address] [place] [address] Urea nitrogen [Mass/Vol] 28 mg/dL High 5-27 [facility] Comment on above: Performed By: #### B MP #### [facility] ([id number]) [address], [address] [place] [address] DRUG SCREEN, URINEon 024 AMPHETAMINE/METHAMP Negative Normal NEG [facility] Comment on above: Result Comment: AMPH /METH screening cut off = 1000 ng/mL Performed By: #### SELENA STINSON #### [facility] ([id number]) [address], [address] [place] [address] BARBITURATES Negative Normal NEG [facility] Comment on above: Result Comment: Juana iturates screening cut off value = 200 ng/mL Performed By: #### D SELENA DECKER #### [facility] ([id number]) [address] [place] [address] BENZODIAZEPINES Negative Normal [facility] Comment on above: Result Comment: Wade odiazepines screening cut off value = 200 ng/mL Performed By: #### Jero DECKER SELENA #### [facility] ([id number]) [address] [place] [address] CANNABINOIDS Negative Normal NEG [facility] Comment on above: Result Comment: Venus abinoids/THC screening cut off value = 50 ng/mL Performed By: #### Jero DECKER FINESSEDRAGAN #### [facility] ([id number]) [address] [place] [address] COCAINE METABOLITE Negative Normal [facility] Comment on above: Result Comment: Coca ine screening cut off value = 300 ng/mL Performed By: #### Jero DECKER FINESSEDRAGAN #### [facility] ([id number]) [address], [address] [place] [address] [facility] Comment on above: Result Comment: Ecst asy screening cut off value = 500 ng/mL This report is intended for use in clinical monitoring or management of patients. Performed By: #### Jero DECKER FINESSEDRAGAN #### [facility] ([id number]) [address] [place] [address] METHADONE Negative Normal NEG [facility] Comment on above: Result Comment: Meth adone screening cut off value = 300 ng/mL. Performed By: #### Jero DECKER FINESSEDRAGAN #### [facility] ([id number]) [address], [address] [place] [address] OPIATES Negative Normal NEG [facility] Comment on above: Result Comment: Opia rafal screening cut off value = 300 ng/mL NOTE: This test is used for the detection of codeine, hydrocodone (>1000 ng/mL), morphine and hydromorphone (>900 ng/mL) in urine. Performed By: #### SELENA STINSON #### [facility] ([id number]) [address], [address] [place] [address] OXYCODONE Negative Normal NEG [facility] Comment on above: Result Comment: Oxyc odone screening cut off value = 300 ng/mL NOTE: This test is used for the detection of oxycodone and oxymorphone in urine. Performed By: #### SELENA STINSON #### [facility] ([id number]) [address], [address] [place] [address] PHENCYCLIDINE Negative Normal NEG [facility] Comment on above: Result Comment: Phen cyclidine screening cut off value = 25 ng/mL Performed By: #### SELENA STINSON #### [facility] ([id number]) [address], [address] [place] [address] MICROALBUMIN - ALBUMIN:CREAT ININE URINE RATIOon 03-27-2024 ALB/CREAT RATIO 37.7 mg/g creat High 0.0-30.0 [facility] Comment on above: Performed By: #### SELENA STINSON #### [facility] ([id number]) [address], [address] [place] [address] Albumin DL <= 20 mg/L (U) [Mass/Vol] 2.0 mg/dL High 0.0-1.9 [facility] Comment on above: Performed By: #### SELENA STINSON #### [facility] ([id number]) [address], [address] [place] [address] URINE CREAT 53.06 mg/dL Normal [facility] Comment on above: Performed By: #### SELENA STINSON #### [facility] ([id number]) [address], [address] [place] [address] COMPLETE BLOOD COUNTon 03-26 Erythrocyte distribution width (RBC) [Ratio] 14.4 % Normal 11.5-15.0 [facility] Comment on above: Performed By: #### C SHEEBA, CMP #### [facility] ([id number]) [address], [address] [place] [address] Hematocrit (Bld) [Volume fraction] 40.1 % Normal 35-47 [facility] Comment on above: Performed By: #### C SHEEBA, CMP #### [facility] ([id number]) [address], [address] [place] [address] Hemoglobin (Bld) [Mass/Vol] 13.5 g/dL Normal 11.7-15.5 [facility] Comment on above: Performed By: #### C SHEEBA, CMP #### [facility] ([id number]) [address], [address] [place] [address] MCH (RBC) [Entitic mass] 30.8 pg Normal 27-34 [facility] Comment on above: Performed By: #### C SHEEBA, CMP #### [facility] ([id number]) [address], [address] [place] [address] MCHC (RBC) [Mass/Vol] 33.7 g/dL Normal 32-36 [facility] Comment on above: Performed By: #### C SHEEBA, CMP #### [facility] ([id number]) [address], [address] [place] [address] MCV (RBC) [Entitic vol] 91 fL Normal 80-100 [facility] Comment on above: Performed By: #### C SHEEBA, CMP #### [facility] ([id number]) [address], [address] [place] [address] Platelet mean volume (Bld) [Entitic vol] 9.8 fL Normal 7-12 [facility] Comment on above: Performed By: #### C SHEEBA, CMP #### [facility] ([id number]) [address], [address] [place] [address] Platelets (Bld) [#/Vol] 308 10*3/uL Normal 150-450 [facility] Comment on above: Performed By: #### C SHEEBA, CMP #### [facility] ([id number]) [address], [address] [place] [address] RBC COUNT 4.39 X10E12/L Normal 3.80-5.20 [facility] Comment on above: Performed By: #### C SHEEBA, CMP #### [facility] ([id number]) [address], [address] [place] [address] WBC (Bld) [#/Vol] 10.1 10*3/uL Normal 4.0-11.0 [facility] Comment on above: Performed By: #### Sheila ALY, CMP #### [facility] ([id number]) [address], [address] [place] [address] COMPREHENSIVE METABOLIC PANE Neftali 03-26-2024 Albumin [Mass/Vol] 3.8 g/dL Normal 3.2-5.3 [facility] Comment on above: Performed By: #### Sheila ALY, CMP #### [facility] ([id number]) [address] [place] [address] ALP [Catalytic activity/Vol] 133 U/L High 39-130 [facility] Comment on above: Performed By: #### C SHEEBA, CMP #### [facility] ([id number]) [address], [address] [place] [address] ALT [Catalytic activity/Vol] 22 U/L Normal 0-31 [facility] Comment on above: Performed By: #### Sheila ALY, CMP #### [facility] ([id number]) [address], [address] [place] [address] Anion gap [Moles/Vol] 7 mmol/L Normal 5-15 [facility] Comment on above: Performed By: #### C SHEEBA, CMP #### [facility] ([id number]) [address], [address] [place] [address] AST [Catalytic activity/Vol] 24 U/L Normal 0-41 [facility] Comment on above: Performed By: #### C BC, CMP #### [facility] ([id number]) [address] [place] [address] Bilirubin [Mass/Vol] 0.4 mg/dL Normal 0.3-1.2 [facility] Comment on above: Performed By: #### C SHEEBA, CMP #### [facility] ([id number]) [address], [address] [place] [address] Calcium [Mass/Vol] 9.6 mg/dL Normal 8.5-10.5 [facility] Comment on above: Performed By: #### C SHEEBA, CMP #### [facility] ([id number]) [address] [place] [address] Chloride [Moles/Vol] 102 mmol/L Normal 98-109 [facility] Comment on above: Performed By: #### C SHEEBA, CMP #### [facility] ([id number]) [address] [place] [address] CO2 [Moles/Vol] 28 mmol/L Normal 22-32 [facility] Comment on above: Performed By: #### C SHEEBA, CMP #### [facility] ([id number]) [address], [address] [place] [address] Creatinine [Mass/Vol] 0.96 mg/dL Normal 0.40-1.00 [facility] Comment on above: Result Comment: METH OD TRACEABLE TO IDMS STANDARD Performed By: #### C SHEEBA, CMP #### [facility] ([id number]) [address] [place] [address] GFR/1.73 sq M.predicted among non-blacks MDRD (S/P/Bld) [Vol rate/Area] 66 mL/min/{1.73_m2} Normal >59 [facility] Comment on above: Result Comment: Reported eGFR is based on the CKD-EPI 2020 equation that does not use a race coefficient. Performed By: #### C BC, CMP #### [facility] ([id number]) [address] [place] [address] Glucose [Mass/Vol] 179 mg/dL High 65-99 [facility] Comment on above: Performed By: #### C BC, CMP #### [facility] ([id number]) [address] [address] [place] [address] Potassium [Moles/Vol] 5.1 mmol/L High 3.5-5.0 [facility] Comment on above: Performed By: #### C BC, CMP #### [facility] ([id number]) [address] [address] [place] [address] Protein [Mass/Vol] 7.2 g/dL Normal 6.0-8.0 [facility] Comment on above: Performed By: #### C BC, CMP #### [facility] ([id number]) [address] [place] [address] Sodium [Moles/Vol] 137 mmol/L Normal 134-146 [facility] Comment on above: Performed By: #### C BC, CMP #### [facility] ([id number]) [address] [place] [address] Urea nitrogen [Mass/Vol] 23 mg/dL Normal 5-27 [facility] Comment on above: Performed By: #### C BC, CMP #### [facility] ([id number]) [address] [place] [address] Lipid 1996 panelon 4 Cholesterol [Mass/Vol] 106 mg/dL Low 150 - 200 mg/dL [facility] Cholesterol in HDL [Mass/Vol] 46 mg/dL 39 - PINF mg/dL [facility] Comment on above: HDL <40 mg/dL - High Risk HDL > or = 40mg/dL- Desirable HDL >60 mg/dL - Negative Risk Cholesterol in LDL [Mass/Vol] 38 mg/dL NINF - 130 mg/dL [facility] Comment on above: LDL <100 mg/dL - Desirable LDL >160 mg/dL - High Risk Cholesterol in VLDL [Mass/Vol] 22 mg/dL 0 - 30 mg/dL [facility] Cholesterol.total/Cho lesterol in HDL [Mass ratio] 2.3 {ratio} 1.0 - 5.0 [facility] Interpretation and review of laboratory results Abnormal [facility] Triglyceride [Mass/Vol] 110 mg/dL 27 - 150 mg/dL [facility] Cholesterol [Mass/Vol] 106 mg/dL Low 150-200 [facility] Comment on above: Performed By: #### 2 4331-1, 3016-3 #### [facility] ([id number]) [address] [facility] [address], [address] [place] [address] Cholesterol in HDL [Mass/Vol] 46 mg/dL Normal >39 [facility] Comment on above: Result Comment: HDL <40 mg/dL - High Risk HDL > or = 40mg/dL- Desirable HDL >60 mg/dL - Negative Risk Performed By: #### 2 4331-1, 3015-3 #### [facility] ([id number]) [address] [place] [address] Cholesterol in LDL [Mass/Vol] 38 mg/dL Normal <130 [facility] Comment on above: Result Comment: LDL <100 mg/dL - Desirable LDL >160 mg/dL - High Risk Performed By: #### 2 4331-1, 6-3 #### [facility] ([id number]) [address], [address] [place] [address] Cholesterol in VLDL [Mass/Vol] 22 mg/dL Normal 0-30 [facility] Comment on above: Performed By: #### 2 4331-1, 3015-3 #### [facility] ([id number]) [address], [address] [place] [address] CHOLESTEROL:HDL 2.3 Normal 1.0-5.0 [facility] Comment on above: Performed By: #### 2 4331-1, 3015-3 #### [facility] ([id number]) [address], [address] [place] [address] Triglyceride [Mass/Vol] 110 mg/dL Normal 27-150 [facility] Comment on above: Performed By: #### 2 4331-1, 3015-3 #### [facility] ([id number]) [address], [address] [place] [address] TSHon 12-05-2023 TSH Qn 3.00 m[IU]/L [facility] TSH Qnon 12-05-2023 [facility] TSH 3.00 uIU/mL Normal 0.49-4.67 [facility] Comment on above: Performed By: #### 2 4331-1, 6-3 #### [facility] ([id number]) [address] [facility], [address] [place] [address] POINT OF CARE GLUCOSEon 10-06 Glucose [Mass/Vol] 252 mg/dL Critically high 74-106 [facility] Comment on above: Performed By: #### P OCGLUC ####[facility] [address] [place] [address]Dr. Abiel Clement PROF CHEM 8 (BAS METB)on Anion gap [Moles/Vol] 11.5 mmol/L Normal [facility] Comment on above: Performed By: #### B MP ####[facility] [address] [place], [place] [address]Dr. Abiel Clement Calcium [Mass/Vol] 9.6 mg/dL Normal 8.5-10.1 [facility] Comment on above: Performed By: #### B MP ####[facility] [address] [place], [place] [address]Dr. Abiel Clement Chloride [Moles/Vol] 102 mmol/L Normal 98-107 [facility] [place] [facility] Comment on above: Performed By: #### B MP ####[facility] [address] [place], [place] [address]Dr. Abiel Clement CO2 [Moles/Vol] 30.8 mmol/L Normal 21.0-32.0 [facility] Comment on above: Performed By: #### B MP ####[facility] [address] [place], [place] [address]DrKasia Clement Creatinine [Mass/Vol] 0.72 mg/dL Normal 0.55-1.02 [facility] [place] [facility] Comment on above: Performed By: #### B MP ####[facility] [address] [place] [address]Dr. Abiel Clement EGFR-AF HAITIAN >60 Normal >=60 [facility] Comment on above: Performed By: #### B MP ####[facility] [address] [place], [place] [address]Dr. Abiel Clement EGFR-NON AF HAITIAN >60 Normal >=60 [facility] Comment on above: Performed By: #### B MP ####[facility] [address] [place] [address]Dr. Abiel Clement Glucose [Mass/Vol] 127 mg/dL Critically high 74-106 [facility] Comment on above: Performed By: #### B MP ####[facility] [address] [place] [address]Dr. Abiel Clement Potassium [Moles/Vol] 4.3 mmol/L Normal 3.5-5.1 [facility] [place] [facility] Comment on above: Performed By: #### B MP ####[facility] [address] [place] [address]Dr. Abiel Clement Sodium [Moles/Vol] 140 mmol/L Normal 136-145 [facility] Comment on above: Performed By: #### B MP ####[facility] [address] [place] [address]Dr. Abiel Clement Urea nitrogen [Mass/Vol] 17.0 mg/dL Normal 7.0-18.0 [facility] [place] [facility] Comment on above: Performed By: #### B MP ####[facility] [address] [place] [address]Dr. Abiel Clement Urea nitrogen/Creatinine [Mass ratio] 23.6 mg/mg Normal [facility] [place] [facility] Comment on above: Performed By: #### B MP ####[facility] [address] [place] [address]Dr. Abiel Clement CULTURE URINEon 08-07-2022 CULTURE URINE Normal [facility] Comment on above: Performed By: #### U RCX ####[facility] [address] [place] [address]Dr. Abiel Clement CBC W MANUAL DIFFon 08-05-20 ANISOCYTOSIS SLIGHT Normal [facility] [place] [facility] Comment on above: Performed By: #### C ALVINO ####[facility] [address] [place] [address]Dr. Abiel Clement ATYPICAL LYMPH # Normal [facility] Comment on above: Performed By: #### C BCALLY ####[facility] [address] [place] [address]Dr. Abiel Clement ATYPICAL LYMPH % Normal [facility] Comment on above: Performed By: #### C ALVINO ####[facility] [address] [place] [address]Dr. Yiviviana Clement BAND # 0.6 103/ul Critically high 0.0-0.3 [facility] Comment on above: Performed By: #### C BCALLY ####[facility] [address] [place] [address]Dr. Yilan Clement BAND % 3 % Normal 0-5 [facility] Comment on above: Performed By: #### C ALVINO ####[facility] [address] [place] [address]Dr. Abiel Clement BASOM # 0.00 103/ul Normal 0.00-0.10 [facility] Comment on above: Performed By: #### C ALVINO ####[facility] [address] [place] [address]Dr. Abiel Clement BASOM % 0.0 % Critically low 0.2-2.0 [facility] Comment on above: Performed By: #### C ALVINO ####[facility] [address] [place], [place] [address]Dr. Abiel Clement BLAST # Normal [facility] Comment on above: Performed By: #### C ALVINO ####[facility] [address] [place] [address]Dr. Abiel Clement BLAST % Normal [facility] Comment on above: Performed By: #### C ALVINO ####[facility] [address] [place] [address]Dr. Abiel Clement CORRECTED WBC Normal 4.0-11.0 [facility] Comment on above: Performed By: #### C ALVINO ####[facility] [address] [place] [address]Dr. Abiel Clement EOS # 0.00 103/ul Normal 0.00-0.70 [facility] Comment on above: Performed By: #### C ALVINO ####[facility] [address] [place], [place] [address]Pt. Abiel Clement EOS% 0.0 % Critically low 0.9-7.0 [facility] Comment on above: Performed By: #### C ALVINO ####[facility] [address] [place], [place] [address]Gv. Abiel Clement HCT 34.0 % Critically low 36.0-48.0 [facility] Comment on above: Performed By: #### C ALVINO ####[facility] [address] [place], [place] [address]Ez. Abiel Clement HGB 10.8 g/dl Critically low 12.0-16.0 [facility] Comment on above: Performed By: #### C ALVINO ####[facility] [address] [place], [place] [address]Fc. Abiel Clement LYMPHM # 0.61 103/ul Critically low 1.20-3.80 [facility] Comment on above: Performed By: #### C ALVINO ####[facility] [address] [place], [place] [address]Dg. Abiel Clement LYMPHM% 3.0 % Critically low 20.5-60.0 [facility] Comment on above: Performed By: #### C ALVINO ####[facility] [address] [place] [id number]. Abiel Clement MCH 27.3 pg Normal 26.7-34.0 [facility] Comment on above: Performed By: #### C ALVINO ####[facility] [address] [place], [place] [address]To. Abiel Clement MCHC 31.8 g/dl Normal 29.9-35.2 [facility] Comment on above: Performed By: #### C ALVINO ####[facility] [address] [place], [place] [address]Fx. Abiel Clement MCV 85.9 fL Normal 81.0-99.0 [facility] Comment on above: Performed By: #### C ALVINO ####[facility] [address] [place] [id number]. Abiel Clement METAMYELOCYTE # Normal [facility] Comment on above: Performed By: #### C ALVINO ####[facility] [address] [place] [id number]. Abiel Clement METAMYELOCYTE % Normal [facility] Comment on above: Performed By: #### C ALVINO ####[facility] [address] [place] [id number]. Abiel Clement MONOM# 1.01 103/ul Critically high 0.30-0.80 [facility] Comment on above: Performed By: #### C ALVINO ####[facility] [address] [place] [address]Dr. Abiel Clement MONOM% 5.0 % Normal 1.7-12.0 [facility] [place] [facility] Comment on above: Performed By: #### C ALVINO ####[facility] [address] [place] [address]Dr. Abiel Clement MPV 11.1 fL Normal 9.5-13.5 [facility] [place] [facility] Comment on above: Performed By: #### C ALVINO ####[facility] [address] [place] [address]Dr. Abiel Clement MYELOCYTE # Normal [facility] Comment on above: Performed By: #### C ALVINO ####[facility] Vvhssiqpri[address] [place] [address] [id number]. Abiel Clement MYELOCYTE % Normal [facility] Comment on above: Performed By: #### C ALVINO ####[facility] Zhtddqznun[address] [place] [id number]. Abiel Clement NRBC Normal [facility] Comment on above: Performed By: #### C ALVINO ####[facility] Epgjydsdes[address] [place] [id number]. Abiel Clement PLT 283 103/ul Normal 150-450 [facility] Comment on above: Performed By: #### C ALVINO ####[facility] Bakdetmoob[address] [place] [id number]. Abiel Clement RBC 3.96 106/ul Critically low 4.20-5.40 [facility] Comment on above: Performed By: #### C ALVINO ####[facility] Bwhvdwjmtu[address] [place] [address]Dr. Suyapaviviana Urbano RDW 15.4 % Critically high 11.0-15.0 [facility] Comment on above: Performed By: #### C ALVINO ####[facility] Nuscqqezth[address] [place] [address]DrKasia Daleviviana Urbano SEG # 18.07 103/ul Critically high 1.40-6.50 [facility] Comment on above: Performed By: #### C ALVINO ####[facility] [address]vcu[address]uv[address] [place], [place] [address]Dr. Abiel Clement SEG % 89.0 % Critically high 43.0-75.0 [facility] Comment on above: Performed By: #### C ALVINO ####[facility] Lyhhxivvab[address] [place], [place] [address]DrKasia Clement WBC 20.3 103/ul Critically high 4.0-11.0 [facility] Comment on above: Performed By: #### C ALVINO ####[facility] Egnvkzxhxo[address] [place], [place] [address]DrKasia Clement LACTATE/LACTIC ACIDon 2021 Lactate [Moles/Vol] 2.5 mmol/L Critically high 0.4-1.9 [facility] Comment on above: Performed By: #### L ACT ####[facility] Aywfsbarcz[address] [place], [place] [address]DrKasia Clement POINT OF CARE GLUCOSEon Glucose [Mass/Vol] 238 mg/dL Critically high 74-106 [facility] Comment on above: Performed By: #### P OCGLUC ####[facility] Wowsqognuk[address] [place], [place] [address]DrKasia Clement PROF CHEM 8 (BAS METB)on Anion gap [Moles/Vol] 10.8 mmol/L Normal [facility] Comment on above: Performed By: #### B MP ####[facility] Mtyijcjbgm[address] [place] [id number]. Abiel Clement Calcium [Mass/Vol] 8.4 mg/dL Critically low 8.5-10.1 [facility] Comment on above: Performed By: #### B MP ####[facility] Evqbuwxqee[address] [place] [address]Dr. Abiel Clement Chloride [Moles/Vol] 103 mmol/L Normal 98-107 [facility] Comment on above: Performed By: #### B MP ####[facility] [address]dsjzpyjhs[address] [place], [place] [address]Dr. Abiel Clement CO2 [Moles/Vol] 27.0 mmol/L Normal 21.0-32.0 [facility] Comment on above: Performed By: #### B MP ####[facility] Urklxcrlmo005[address] [place], [place] [address]Dr. Abiel Clement Creatinine [Mass/Vol] 1.02 mg/dL Normal 0.55-1.02 [facility] Comment on above: Performed By: #### B MP ####[facility] Tjrymfqyjx[address] [place], [place] [address]Dr. Abiel Clement EGFR-AF HAITIAN >60 Normal >=60 [facility] Comment on above: Performed By: #### B MP ####[facility] Umvvdsffxj[address] [place], [place] [address]Dr. Abiel Clement EGFR-NON AF HAITIAN 55 mL/min/1.73m2 Critically low >=60 [facility] Comment on above: Performed By: #### B MP ####[facility] P[address]wbkrjrlv[address] [place], [place] [address]Dr. Abiel Clement Glucose [Mass/Vol] 199 mg/dL Critically high 74-106 [facility] Comment on above: Performed By: #### B MP ####[facility] Etdvkydtpy24[address] [place], [place] [address]Dr. Abiel Clement Potassium [Moles/Vol] 3.8 mmol/L Normal 3.5-5.1 [facility] Comment on above: Performed By: #### B MP ####[facility] Ypwlnfwrhk[address] [place] [id number]. Abiel Clement Sodium [Moles/Vol] 137 mmol/L Normal 136-145 [facility] Comment on above: Performed By: #### B MP ####[facility] Pnhweqlzwj57[address] [place] [address]Dr. Abiel Clement Urea nitrogen [Mass/Vol] 21.0 mg/dL Critically high 7.0-18.0 [facility] Comment on above: Performed By: #### B MP ####[facility] Dsfvsiemyf[address] [place], [place] [address]Dr. Abiel Clement Urea nitrogen/Creatinine [Mass ratio] 20.6 mg/mg Normal [facility] Comment on above: Performed By: #### B MP ####[facility] Emkutqlyao22[address] [place], [place] [address]Dr. Abiel Clement ACETONE SERUMon 08-04-2022 ACETONE Negative Normal NEGATIVE [facility] Comment on above: Performed By: #### A CETON ####[facility] Qvxtcxmgkf460[address] [place], [place] [address]Dr. Abiel Clement AMMONIAon 08-04-2022 Ammonia (P) [Moles/Vol] 24 umol/L Normal 11-32 [facility] Comment on above: Performed By: #### A MM ####[facility] Adgdgcwngu208[address] [place], [place] [address]Dr. Abiel Clement CBC AUTO DIFFon 08-04-2022 BASO # 0.0 103/ul Normal 0.0-0.1 [facility] Comment on above: Performed By: #### C BC ####[facility] Epynfbnthq911[address] [place], [place] [address]Dr. Abiel Urbano Basophils/100 WBC (Bld) 0.3 % Normal 0.2-2.0 [facility] Comment on above: Performed By: #### C BC ####[facility] Ubryfkwhqv15[address] [place], [place] [address]Dr. Abiel Urbano EO # 0.0 103/ul Normal 0.0-0.7 [facility] Comment on above: Performed By: #### C BC ####[facility] [address]ir[address]obsx[address] [place] [address]Dr. Abiel Clement Eosinophils/100 WBC (Bld) 0.4 % Critically low 0.9-7.0 [facility] Comment on above: Performed By: #### C BC ####[facility] Ibimonzkxe[address] [place] [address]Dr. Abiel Clement Erythrocyte distribution width (RBC) [Ratio] 15.1 % Critically high 11.0-15.0 [facility] Comment on above: Performed By: #### C BC ####[facility] Ljllvfspci[address] [place], [place] [address]Dr. Abiel Clement Hematocrit (Bld) [Volume fraction] 37.7 % Normal 36.0-48.0 [facility] Comment on above: Performed By: #### C BC ####[facility] Bbflmuxfjx625[address] [place], [place] [address]Dr. Abiel Clement Hemoglobin (Bld) [Mass/Vol] 12.4 g/dL Normal 12.0-16.0 [facility] Comment on above: Performed By: #### C BC ####[facility] Vgujcmjgcg033[address] [place], [place] [address]Dr. Abiel Clement IG # 0.02 10e3/ul Normal 0.00-0.03 [facility] Comment on above: Performed By: #### C BC ####[facility] Auxvygwxzw49[address] [place], [place] [address]Dr. Abiel Clement IG % 0.2 % Normal 0.0-0.5 [facility] Comment on above: Performed By: #### C BC ####[facility] Ohrqauudik24[address] [place], [place] [address]Dr. Abiel Clement LYMPH # 0.6 103/ul Critically low 1.2-3.8 [facility] Comment on above: Performed By: #### C BC ####[facility] Ivozvrthqc[address] [place], [place] [address]Dr. Abiel Clement Lymphocytes/100 WBC (Bld) 6.8 % Critically low 20.5-60.0 [facility] Comment on above: Performed By: #### C BC ####[facility] [address]xrjfketdt[address] [place] [id number]. Abiel Clement MANUAL DIFF REQ NO Normal [facility] Comment on above: Performed By: #### C BC ####[facility] Iemxndzvcu13[address] [place] [id number]. Abiel Clement MCH (RBC) [Entitic mass] 27.7 pg Normal 26.7-34.0 [facility] Comment on above: Performed By: #### C BC ####[facility] Ndzeslmlga28[address] [place] [id number]. Abiel Clement MCHC (RBC) [Mass/Vol] 32.9 g/dL Normal 29.9-35.2 [facility] Comment on above: Performed By: #### C BC ####[facility] Fyhvthkfij[address] [place], [place] [address]Dr. Abiel Clement MCV (RBC) [Entitic vol] 84.2 fL Normal 81.0-99.0 [facility] Comment on above: Performed By: #### C BC ####[facility] Ovziuzwisi[address] [place], [place] [address]Dr. Abiel Clement MONO # 0.4 103/ul Normal 0.3-0.8 [facility] Comment on above: Performed By: #### C BC ####[facility] Lwbdmjykfu248[address] [place], [place] [address]Dr. Abiel Clement Monocytes/100 WBC (Bld) 4.7 % Normal 1.7-12.0 [facility] Comment on above: Performed By: #### C BC ####[facility] Dmdqypleaq[address] [place], [place] [address]Dr. Abiel Clement NEUT # 8.1 103/ul Critically high 1.4-6.5 [facility] Comment on above: Performed By: #### C BC ####[facility] Cgmjsnkonm62[address] [place] [id number]. Abiel Clement Neutrophils/100 WBC (Bld) 87.6 % Critically high 43.0-75.0 [facility] Comment on above: Performed By: #### C BC ####[facility] Uajpaygbyu[address] [place] [id number]. Abiel Clement Platelet mean volume (Bld) [Entitic vol] 10.5 fL Normal 9.5-13.5 [facility] Comment on above: Performed By: #### C BC ####[facility] J[address]gjdusqu3[address] [place] [id number]. Abiel Clement PLT 286 103/ul Normal 150-450 [facility] Comment on above: Performed By: #### C BC ####[facility] Pcqlsyzirw45[address] [place] [id number]. Abiel Clement RBC 4.48 106/ul Normal 4.20-5.40 [facility] Comment on above: Performed By: #### C BC ####[facility] Bl[address]vsofpls16[address] [place] [phone]. Abiel Clement WBC 9.2 103/ul Normal 4.0-11.0 [facility] Comment on above: Performed By: #### C BC ####[facility] Bzcfgkyzck[address] [place] [id number]. Abiel Clement CT ABD/PELV W CONon 08-04-20 CT ABD/PELV W CON Normal [facility] CT HEAD WO CONon 08-04-2022 CT HEAD WO CON Normal [facility] CULTURE BLOODon 08-04-2022 Microscopic examination of blood, culture Culture Observations: NO GROWTH AT 5 DAYS. Normal [facility] Comment on above: Performed By: #### B LDCX1 ####[facility] Euvieyvqkz[address] [place] [id number]. Abiel Clement Performed By: #### B LDCX2 ####[facility] Yqvovukrxu[address] [place] [address]Dr. Abiel Clement Covid-19 PCR (CVDTB)on 07-08 SARS-CoV-2 (COVID-19) RNA CLARIBEL+probe Ql (Unsp spec) Not detected Normal NOT DETECTED [facility] Comment on above: Result Comment: [...] for this test is supported by the [place] of [employer] and Human Service's declaration that [...] be used). Performed By: #### C VDTBH ####[facility] Qydcvfuqku109[address] [place], [place] [address]Dr. Abiel Clement DRUG SCREEN RAPID (URINE)on 08-04-2022 AMP Negative Normal NEGATIVE [facility] Comment on above: Performed By: #### D RUGRPD ####[facility] [address]vafrgzad[address] [place] [address]Dr. Abiel Clement BAR Negative Normal NEGATIVE [facility] Comment on above: Performed By: #### D RUGRPD ####[facility] Snqenekira34[address] [place] [id number]. Abiel Clement BUP Negative Normal NEGATIVE [facility] Comment on above: Performed By: #### D RUGRPD ####[facility] Xfqhmqngjp13[address] [place] [address]Dr. Abiel Clement BZO Negative Normal NEGATIVE [facility] Comment on above: Performed By: #### D RUGRPD ####[facility] Jyzeljvlbf[address] [place] [address]Dr. Abiel Clement CAROLINE Negative Normal NEGATIVE [facility] Comment on above: Performed By: #### D RUGRPD ####[facility] Ykpqigkjzu[address] [place], [place] [address]Dr. Abiel Clement CUT-OFFS SEE BELOW Normal [facility] Comment on above: Result Comment: AMP (Amphetamine): 500ng/mL, BAR (Barbituates): 200 ng/mL, BZO (Benzodiazepines): 150 ng/mL, BUP (Buprenorphine): 10 ng/mL, CAROLINE (Cocaine): 150 ng/mL, mAMP (Methamphetamine): 500 ng/mL, MTD (Methadone): 200 ng/mL, OPI (Opiates): 100 ng/mL, OXY (Oxycodone): 100 ng/mL, PCP (Phencyclidine): 25 ng/mL, PPX (Propoxyphene): 300 ng/mL, THC (Cannabinoids): 50 ng/mL, TCA (Trycyclic Antidepressants): 300 ng/mL Performed By: #### D RUGRPD ####[facility] Bmhpiyjlxf[address] [place], [place] [address]Dr. [facility] [place][Note 2] DRUG CUT HEADER DRUG CLASS TEST SYSTEM CUT-OFF CONCENTRATIONS ARE FOLLOWS: Normal [facility] Comment on above: Performed By: #### D RUGRPD ####[facility] Qltounyjzu4[address] [place], [place] [address]Dr. Abiel [facility] mAMP Negative Normal NEGATIVE [facility] Comment on above: Performed By: #### D RUGRPD ####[facility] Hneegxdkbt[address] [place], [place] [address]Dr. [facility] [place][Note 2] MTD Negative Normal NEGATIVE [facility] Comment on above: Performed By: #### D RUGRPD ####[facility] Nzpkpfwwbu370[address] [place], [place] [address]Dr. [facility] [place][Note 2] OPI Positive Abnormal NEGATIVE [facility] Comment on above: Performed By: #### D RUGRPD ####[facility] Fngrbujtqn158[address] [place], [place] [address]Dr. [facility] OXY Negative Normal NEGATIVE [facility] Comment on above: Performed By: #### D RUGRPD ####[facility] Kwkpdgsmwz760[address] [place], [place] [address]Dr. [facility] PCP Negative Normal NEGATIVE [facility] Comment on above: Performed By: #### D RUGRPD ####[facility] Cmqbsmfvsl230[address] [place], [place] [address]Dr. Abiel Clement PPX Negative Normal NEGATIVE [facility] Comment on above: Performed By: #### D RUGRPD ####[facility] Fgjhcltnbg7[address] [place] [address]Dr. Abiel Clement TCA Negative Normal NEGATIVE [facility] Comment on above: Performed By: #### D RUGRPD ####[facility] Pyxidofpes65[address] [place], [place] [address]Dr. Abiel Clement THC Negative Normal NEGATIVE [facility] Comment on above: Performed By: #### D RUGRPD ####[facility] Vwyiikknpu[address] [place], [place] [address]Dr. Abiel Clement ER URINE PROFILEon 2 Bilirubin Ql (U) Negative Normal NEGATIVE [facility] Comment on above: Performed By: #### NESSA ACE ####[facility] Lrushsehys[address] [place], [place] [address]Dr. Abiel Clement Clarity (U) CLEAR Normal CLEAR [facility] Comment on above: Performed By: #### NESSA ACE ####[facility] Ytodznnrfu704[address] [place], [place] [address]Dr. Abiel Clement Color (U) LT. YELLOW Normal YELLOW [facility] Comment on above: Performed By: #### NESSA ACE ####[facility] Iqxytibfjn368[address] [place], [place] [address]Dr. Abiel Clement ERUAHD A micrscopic examination will be performed if indicated. Normal [facility] Comment on above: Performed By: #### NESSA ACE ####[facility] Nkxgdflnkp96[address] [place], [place] [address]Dr. Abiel Clement Glucose Ql (U) Negative Normal NEGATIVE [facility] Comment on above: Performed By: #### NESSA ACE ####[facility] Acoxhotdqj434[address] [place], [place] [address]Dr. Abiel Clement Hemoglobin Ql (U) SMALL Abnormal NEGATIVE [facility] Comment on above: Performed By: #### NESSA ACE ####[facility] Hkfkowomqp3[address] [place] [address]Dr. Abiel Clement Ketones Ql (U) Negative Normal NEGATIVE [facility] Comment on above: Performed By: #### NESSA ACE ####[facility] Fvgmzgkiow9[address] [place] [address]Dr. Abiel Clement LEUKOCYTES LARGE Abnormal NEGATIVE [facility] Comment on above: Performed By: #### NESSA ACE ####[facility] Ldwjtvluza[address] [place], [place] [address]Dr. Abiel Clement Nitrite Ql (U) Negative Normal NEGATIVE [facility] Comment on above: Performed By: #### NESSA ACE ####[facility] Yxqgmguncv7[address] [place], [place] [address]DrKasia Clement pH (U) 5.0 [pH] Normal 5-9 [facility] Comment on above: Performed By: #### NESSA ACE ####[facility] Cpllnalkso05[address] [place], [place] [address]Dr. Abiel Clement SPEC GRAVITY 1.020 Normal 1.005-<=1.02 5 [facility] Comment on above: Performed By: #### NESSA ACE ####[facility] Qjzbnkqkrx[address] [place], [place] [address]DrKasia Clement UA PROTEIN Negative Normal NEGATIVE/ TRACE [facility] Comment on above: Performed By: #### NESSA ACE ####[facility] Rrubbdbmss[address] [place], [place] [address]Dr. Abiel Clement UR MICRO IND INDICATED Normal [facility] Comment on above: Performed By: #### NESSA ACE ####[facility] Crgegmcpxr709[address] [place], [place] [address]DrKasia Clement Urobilinogen Qn (U) 0.2 {Keegan'U}/dL Normal 0.2 - 1. 0 [facility] Comment on above: Performed By: #### NESSA ACE ####[facility] Augkepubsa[address] [place], [place] [address]DrKasia Clement ETHANOL (BLD ALC)on 08-04-20 22 ALC NOTE NOTE: 80 mg/dl is th e legal limit for a blood alcohol level Normal [facility] Comment on above: Performed By: #### E TH ####[facility] Lhioghvduc[address] [place], [place] [address]Dr. Abiel Clement Ethanol [Mass/Vol] mg/dL Normal [facility] Comment on above: Performed By: #### E TH ####[facility] Oksqfkzdvl19[address] [place], [place] [address]Dr. Abiel Clement INFLUENZA A AND B AGon 08-04 INFLUANEGH SEE BELOW Normal [facility] Comment on above: Result Comment: Nega tive for Flu A protein angiten. Infection due to Flu A cannot be ruled out. Flu A angiten in the sample may be below the detection limit of the test. Performed By: #### I NFLUAB ####[facility] Zaodjamgcn[address] [place], [place] [address]Dr. Abiel Clement INFLUBNEGH SEE BELOW Normal [facility] Comment on above: Result Comment: Nega tive for Flu B protein antigen. Infection due to Flu B cannot be ruled out. Flu B antigen in the sample may be below the detection limit of the test. Performed By: #### I NFLUAB ####[facility] Wkeghtifzd[address] [place], [place] [address]Dr. Abiel [facility] INFLUENZA A AG Negative Normal NEGATIVE SEE COMMENT [facility] Comment on above: Performed By: #### I NFLUAB ####[facility] [address]vwljgfh[address] [place], [place] [address]Dr. Abiel Clement INFLUENZA B AG Negative Normal NEGATIVE SEE COMMENT [facility] Comment on above: Performed By: #### I NFLUAB ####[facility] Ibkoyskigf[address] [place], [place] [address]Dr. Abiel Clement INTERNAL CONTROLS Within Normal Limits Normal Wi thin Normal Limits [facility] Comment on above: Performed By: #### I NFLUAB ####[facility] Qivatutjex[address] [place], [place] [address]Dr. Abiel Clement LACTATE/LACTIC ACIDon 2021 Lactate [Moles/Vol] 2.0 mmol/L Critically high 0.4-1.9 [facility] Comment on above: Performed By: #### L ACT ####[facility] Wxbkclkmwl[address] [place] [address]Dr. Suyapaviviana Urbano LIPASEon 08-04-2022 Lipase [Catalytic activity/Vol] 28.0 U/L Critically low 73.0-393.0 [facility] Comment on above: Performed By: #### L IPA, CMP, HSTROPN, TSH ####[facility] Psnvwdiytx[address] [place] [address]Dr. Abiel Clement PH VENOUS BLOODon 08-04-2022 PCO2 VENOUS 30.0 mmHg Critically low 40.0-52.0 [facility] Comment on above: Performed By: #### P HVEN ####[facility] Phrhodqcpg[address] [place] [address]Dr. Abiel Clement pH VENOUS 7.509 Critically high 7.330-7.430 [facility] Comment on above: Performed By: #### P HVEN ####[facility] Bfdmlaqfxx67[address] [place] [address]Dr. Abiel Clement POINT OF CARE GLUCOSEon 07-08 Glucose [Mass/Vol] 230 mg/dL Critically high 74-106 [facility] Comment on above: Performed By: #### P OCGLUC ####[facility] Xsxixkydkj[address] [place] [address]Dr. Abiel Clement PROF 14(COMP METB)on 022 Albumin [Mass/Vol] 3.0 g/dL Critically low 3.4-5.0 [facility] Comment on above: Performed By: #### L IPA, CMP, HSTROPN, TSH ####[facility] Dhjirbfwnn[address] [place] [address]Dr. Abiel Clement Albumin/Globulin [Mass ratio] 0.7 {ratio} Normal [facility] Comment on above: Performed By: #### L IPA, CMP, HSTROPN, TSH ####[facility] Aiyqacjlts[address] [place] [address]Dr. Abiel Clement ALP [Catalytic activity/Vol] 196 U/L Critically high 46-116 [facility] Comment on above: Performed By: #### L IPA, CMP, HSTROPN, TSH ####[facility] Agvugjawjm[address] [place] [address]Dr. Abiel Clement ALT [Catalytic activity/Vol] 21 U/L Normal 14-59 [facility] Comment on above: Performed By: #### L IPA, CMP, HSTROPN, TSH ####[facility] Bpbxlrrkle98[address] [place] [address]Dr. Abiel Clement Anion gap [Moles/Vol] 12.1 mmol/L Normal Th [facility] Comment on above: Performed By: #### L IPA, CMP, HSTROPN, TSH ####[facility] Utxxvndvmv94[address] [place] [address]Dr. Abiel Clement AST [Catalytic activity/Vol] 29 U/L Normal 15-37 [facility] Comment on above: Performed By: #### L IPA, CMP, HSTROPN, TSH ####[facility] Vtvlqonwlj[address] [place] [address]Dr. Abiel Clement Bilirubin [Mass/Vol] 0.3 mg/dL Normal 0.2-1.0 [facility] Comment on above: Performed By: #### L IPA, CMP, HSTROPN, TSH ####[facility] W[address]velczgh[address] [place] [address]Dr. Abiel Clement Calcium [Mass/Vol] 8.9 mg/dL Normal 8.5-10.1 [facility] Comment on above: Performed By: #### L IPA, CMP, HSTROPN, TSH ####[facility] Wtpnfyjahu37[address] [place] [address]Dr. Abiel Clement Chloride [Moles/Vol] 102 mmol/L Normal 98-107 [facility] Comment on above: Performed By: #### L IPA, CMP, HSTROPN, TSH ####[facility] Bbsxgulvok[address] [place] [address]Dr. Abiel Clement CO2 [Moles/Vol] 27.1 mmol/L Normal 21.0-32.0 [facility] Comment on above: Performed By: #### L IPA, CMP, HSTROPN, TSH ####[facility] Whdemqslvp23[address] [place] [address]Dr. Abiel Clement Creatinine [Mass/Vol] 0.83 mg/dL Normal 0.55-1.02 [facility] Comment on above: Performed By: #### L IPA, CMP, HSTROPN, TSH ####[facility] Wxmzrinlja70[address] [place] [address]Dr. Abiel Clement EGFR-AF HAITIAN >60 Normal >=60 [facility] Comment on above: Performed By: #### L IPA, CMP, HSTROPN, TSH ####[facility] Svyxweauxp46[address] [place] [address]Dr. Abiel Clement EGFR-NON AF HAITIAN >60 Normal >=60 [facility] Comment on above: Performed By: #### L IPA, CMP, HSTROPN, TSH ####[facility] [address]vocidfnv[address] [place], [place] [address]Dr. Abiel Clement Globulin (S) [Mass/Vol] 4.2 g/dL Normal [facility] Comment on above: Performed By: #### L IPA, CMP, HSTROPN, TSH ####[facility] Wzofxiipuh[address] [place] [address]Dr. Abiel Clement Glucose [Mass/Vol] 132 mg/dL Critically high 74-106 [facility] Comment on above: Performed By: #### L IPA, CMP, HSTROPN, TSH ####[facility] Mutnnclfzn[address] [place] [address]Dr. Abiel Clement Potassium [Moles/Vol] 4.2 mmol/L Normal 3.5-5.1 [facility] Comment on above: Performed By: #### L IPA, CMP, HSTROPN, TSH ####[facility] [address]fulse[address] [place] [address]Dr. Abiel Clement Protein [Mass/Vol] 7.2 g/dL Normal 6.4-8.2 [facility] Comment on above: Performed By: #### L IPA, CMP, HSTROPN, TSH ####[facility] Suzkejvosq[address] [place] [address]Dr. Abiel Clement Sodium [Moles/Vol] 137 mmol/L Normal 136-145 [facility] Comment on above: Performed By: #### L IPA, CMP, HSTROPN, TSH ####[facility] Lmkgu[address] [place], [place] [address]Dr. Abiel Clement Urea nitrogen [Mass/Vol] 18.0 mg/dL Normal 7.0-18.0 [facility] Comment on above: Performed By: #### L IPA, CMP, HSTROPN, TSH ####[facility] Mfstrocjvz[address] [place], [place] [address]Dr. Abiel Clement Urea nitrogen/Creatinine [Mass ratio] 21.7 mg/mg Normal [facility] Comment on above: Performed By: #### L IPA, CMP, HSTROPN, TSH ####[facility] Ipcomaencz[address] [place], [place] [address]Dr. Abiel Clement PROTIMEon 08-04-2022 INR Coag (PPP) [Relative time] 1.05 {INR} Normal [facility] Comment on above: Performed By: #### P TT, PT ####[facility] Dmobtbtdz[address] [place], [place] [address]Dr. Abiel Clement INR GUIDELINES SEE BELOW Normal The [facility] Comment on above: Result Comment: GELY RED INR: 2.0 - 3.0 CONDITIONS NOT LISTED BELOW 2.5 - 3.5 FOR PROSTHETIC HEART VALVE REPLACEMENT 2.5 - 3.5 RECURRENT THROMBOSIS Performed By: #### P TT, PT ####[facility] Jdnjnrcyim[address] [place], [place] [address]Dr. Abiel Clement PT Coag (PPP) [Time] 11.3 s Normal 9.0-11.6 [facility] Comment on above: Performed By: #### P TT, PT ####[facility] Ubmftbvxql[address] [place], [place] [address]Dr. Abiel Clement PTTon 08-04-2022 aPTT Coag (Bld) [Time] 25.2 s Normal 22.3-36.2 [facility] Comment on above: Performed By: #### P TT, PT ####[facility] F[address]kncyb[address] [place] [address]Dr. Abiel Clement TROPONIN, HIGH SENSITIVITYon 08-04-2022 HSTROP 5.0 pg/mL Normal 4.0-51.3 [facility] Comment on above: Result Comment: CUT- OFF POINTS HAVE BEEN ESTABLISHED BASED ON THE FOURTH UNIVERSAL DEFINITIONS OF MYOCARDIALINFARCTION. THE UPPER REFERENCE LIMIT (URL) OF TROPONIN, DEFINED THE 99TH PERCENTILE OFcTnI DISTRIBUTION IN A REFERENCE POPULATION, HAS BEEN CONFIRMED THE DECISION THRESHOLDFOR NH DIAGNOSIS. Performed By: #### L IPA, CMP, HSTROPN, TSH ####[facility] Tjxvfofohb[address] [place], [place] [address]Dr. Abiel Clement TSHon 08-04-2022 TSH 1.695 uIU/mL Normal 0.358-3.740 [facility] Comment on above: Performed By: #### L IPA, CMP, HSTROPN, TSH ####[facility] Xaarihxlfb[address] [place], [place] [address]Dr. Abiel Clement URINE MICROSCOPIC ONLYon BACTERIA MODERATE Abnormal NONE SEEN [facility] Comment on above: Performed By: #### Krystle GERMAN UMICRO ####[facility] Zdluhfqjax[address] [place], [place] [address]Dr. Abiel Urbano Bacteria identified Cx Nom (U) INDICATED Normal [facility] Comment on above: Performed By: #### Krystle RUThea UMICRO ####[facility] Eebqgfephg[address] [place], [place] [address]Dr. Abiel Clement CAST NONE SEEN Normal NONE SEEN [facility] Comment on above: Performed By: #### E RUThea UMICRO ####[facility] Buuyutyeje[address] [place], [place] [address]Dr. Abiel Clement Crystals LM Nom (Urine sed) NONE SEEN Normal NONE SEEN [facility] Comment on above: Performed By: #### E RUR, UMICRO ####[facility] P[address]og[address]bsbwb[address] [place] [address]Dr. Abiel Clement Epithelial cells LM Ql (Urine sed) FEW Abnormal NONE SEEN /RARE [facility] Comment on above: Performed By: #### NESSA ACE ####[facility] Szirxclcix[address] [place] [address]Dr. Abiel Clement MUCOUS NONE SEEN Normal NONE SEEN [facility] Comment on above: Performed By: #### CARLOS ACERO ####[facility] Frgpxwkjfw27[address] [place], [place] [address]Dr. Abiel Clement RBC 2-5 Abnormal 0-2 [facility] Comment on above: Performed By: #### NESSA ACE ####[facility] Exiuwbbdbr58[address] [place], [place] [address]Dr. Abiel Clement WBC 10-20 Abnormal NONE SEEN [facility] Comment on above: Performed By: #### NESSA ACE ####[facility] Ivqxctnooo[address] [place], [place] [address]Dr. Abiel Clement XR CHEST 1 Von 08-04-2022 XR CHEST 1 V Normal [facility] XR FOOT RT MIN 3 VIEWSon XR FOOT RT MIN 3 VIEWS Normal [facility] CBC AUTO DIFFon 06-03-2022 BASO # 0.0 103/ul Normal 0.0-0.1 [facility] Comment on above: Performed By: #### C BC ####[facility] Nknvcsenot[address] [place], [place] [address]Dr. Abiel Clement Basophils/100 WBC (Bld) 0.5 % Normal 0.2-2.0 [facility] Comment on above: Performed By: #### C BC ####[facility] Bupbzhethf[address] [place], [place] [address]Dr. Abiel Clement EO # 0.3 103/ul Normal 0.0-0.7 [facility] Comment on above: Performed By: #### C BC ####[facility] Blbaguexdp87[address] [place], [place] [address]Dr. Abiel Clement Eosinophils/100 WBC (Bld) 3.5 % Normal 0.9-7.0 [facility] Comment on above: Performed By: #### C BC ####[facility] Flcyohfaqa[address] [place] [address]Dr. Abiel Clement Erythrocyte distribution width (RBC) [Ratio] 13.7 % Normal 11.0-15.0 [facility] Comment on above: Performed By: #### C BC ####[facility] Ypiqyyyftk[address] [place], [place] [address]Dr. Abiel Clement Hematocrit (Bld) [Volume fraction] 34.2 % Critically low 36.0-48.0 [facility] Comment on above: Performed By: #### C BC ####[facility] Tjvhpuytze[address] [place], [place] [address]Dr. Abiel Clement Hemoglobin (Bld) [Mass/Vol] 10.5 g/dL Critically low 12.0-16.0 [facility] Comment on above: Performed By: #### C BC ####[facility] Mhrwkvfqui[address] [place], [place] [address]Dr. Abiel Clement IG # 0.02 10e3/ul Normal 0.00-0.03 [facility] Comment on above: Performed By: #### C BC ####[facility] Xkjjcjohby88[address] [place], [place] [address]Dr. Abiel Clement IG % 0.3 % Normal 0.0-0.5 [facility] Comment on above: Performed By: #### C BC ####[facility] Icsspwrxji[address] [place], [place] [address]Dr. Abiel Clement LYMPH # 1.4 103/ul Normal 1.2-3.8 [facility] Comment on above: Performed By: #### C BC ####[facility] Xeitwntjvx64[address] [place], [place] [address]Dr. Abiel Clement Lymphocytes/100 WBC (Bld) 18.5 % Critically low 20.5-60.0 [facility] Comment on above: Performed By: #### C BC ####[facility] Ikngsdxxge[address] [place] [address]Dr. Abiel Urbano MANUAL DIFF REQ NO Normal [facility] Comment on above: Performed By: #### C BC ####[facility] Rwzwzettvk64[address] [place] [address]Dr. Abiel Clement MCH (RBC) [Entitic mass] 27.8 pg Normal 26.7-34.0 [facility] Comment on above: Performed By: #### C BC ####[facility] Genkfbnjjq[address] [place], [place] [address]Dr. Abiel Urbano MCHC (RBC) [Mass/Vol] 30.7 g/dL Normal 29.9-35.2 [facility] Comment on above: Performed By: #### C BC ####[facility] Zyfannmofe[address] [place], [place] [address]Dr. Suyapaviviana Clement MCV (RBC) [Entitic vol] 90.5 fL Normal 81.0-99.0 [facility] Comment on above: Performed By: #### C BC ####[facility] Hqfrcpfrnt[address] [place], [place] [address]Dr. Abiel Urbano MONO # 0.7 103/ul Normal 0.3-0.8 [facility] Comment on above: Performed By: #### C BC ####[facility] Zcntuuqciv25[address] [place], [place] [address]Dr. Abiel Clement Monocytes/100 WBC (Bld) 8.5 % Normal 1.7-12.0 [facility] Comment on above: Performed By: #### C BC ####[facility] Eknzyzhqwn[address] [place], [place] [address]Dr. Suyapaviviana Urbano NEUT # 5.2 103/ul Normal 1.4-6.5 [facility] Comment on above: Performed By: #### C BC ####[facility] Ywdkfzytwk[address] [place], [place] [address]Dr. Suyapaviviana Clement Neutrophils/100 WBC (Bld) 68.7 % Normal 43.0-75.0 [facility] Comment on above: Performed By: #### C BC ####[facility] Hutqdoraut[address] [place], [place] [address]Dr. Abiel Clement Platelet mean volume (Bld) [Entitic vol] 11.0 fL Normal 9.5-13.5 [facility] Comment on above: Performed By: #### C BC ####[facility] [address]wxg[address] [place] [address]Dr. Abiel Clement PLT 249 103/ul Normal 150-450 [facility] Comment on above: Performed By: #### C BC ####[facility] Rfsq[address]jsyai[address] [place] [address]Dr. Abiel Clement RBC 3.78 106/ul Critically low 4.20-5.40 [facility] Comment on above: Performed By: #### C BC ####[facility] Tr[address]ztpk[address] [place] [address]Dr. Abiel Clement WBC 7.6 103/ul Normal 4.0-11.0 [facility] Comment on above: Performed By: #### C BC ####[facility] Q[address]rfpcexx[address] [place] [address]Dr. Abiel Clement POINT OF CARE GLUCOSEon 05-07 Glucose [Mass/Vol] 84 mg/dL Normal 74-106 [facility] Comment on above: Performed By: #### P OCGLUC ####[facility] Kwnedxxiju[address] [place] [address]Dr. Abiel Clement Glucose [Mass/Vol] 49 mg/dL Critically low 74-106 [facility] Comment on above: Result Comment: Will Repeat Test Performed By: #### P OCGLUC ####[facility] Ueavvupaer[address] [place] [address]Dr. Abiel Clement Glucose [Mass/Vol] 182 mg/dL Critically high 74-106 [facility] Comment on above: Performed By: #### P OCGLUC ####[facility] [address]raq[address] [place] [address]Dr. Abiel Clement PROF CHEM 8 (BAS METB)on Anion gap [Moles/Vol] 8.5 mmol/L Normal [facility] Comment on above: Performed By: #### B MP ####[facility] [address]ohendbltp[address] [place] [id number]. Abiel Clement Calcium [Mass/Vol] 9.2 mg/dL Normal 8.5-10.1 [facility] Comment on above: Performed By: #### B MP ####[facility] Pmffxxpgqf495[address] [place] [id number]. Abiel Clement Chloride [Moles/Vol] 99 mmol/L Normal 98-107 [facility] Comment on above: Performed By: #### B MP ####[facility] Zerpuivinq032[address] [place] [id number]. Abiel Clement CO2 [Moles/Vol] 29.5 mmol/L Normal 21.0-32.0 [facility] Comment on above: Performed By: #### B MP ####[facility] Xwndssjhyx[address] [place] [address]Dr. Abiel Clement Creatinine [Mass/Vol] 0.97 mg/dL Normal 0.55-1.02 [facility] Comment on above: Performed By: #### B MP ####[facility] [address]umlsfncc[address] [place] [address]Dr. Abiel Clement EGFR-AF HAITIAN >60 Normal >=60 [facility] Comment on above: Performed By: #### B MP ####[facility] Coecpcqrmf[address] [place] [id number]. Abiel Clement EGFR-NON AF HAITIAN 58 mL/min/1.73m2 Critically low >=60 [facility] Comment on above: Performed By: #### B MP ####[facility] Dtmff[address]awvp[address] [place] [address]Dr. Abiel Clement Glucose [Mass/Vol] 193 mg/dL Critically high 74-106 [facility] Comment on above: Performed By: #### B MP ####[facility] Iwabfttwvg[address] [place] [address]Dr. Abiel Clement Potassium [Moles/Vol] 4.0 mmol/L Normal 3.5-5.1 [facility] Comment on above: Performed By: #### B MP ####[facility] Srbfakrhng2410 [place] [id number]. Abiel Clement Sodium [Moles/Vol] 133 mmol/L Critically low 136-145 [facility] Comment on above: Performed By: #### B MP ####[facility] Pdgyjiocla[address] [place] [address]Dr. Suyapalan Clement Urea nitrogen [Mass/Vol] 20.0 mg/dL Critically high 7.0-18.0 [facility] Comment on above: Performed By: #### B MP ####[facility] Wglekqjsbz[address] [place] [address]Dr. Suyapalan Clement Urea nitrogen/Creatinine [Mass ratio] 20.6 mg/mg Normal [facility] Comment on above: Performed By: #### B MP ####[facility] Aojhelvykq76[address] [place] [address]Dr. Abiel Clement POINT OF CARE GLUCOSEon 05-07 Glucose [Mass/Vol] 62 mg/dL Critically low 74-106 [facility] Comment on above: Performed By: #### P OCGLUC ####[facility] Qwslgkaxhw75[address] [place] [address]Dr. Suyapalan Clement Glucose [Mass/Vol] 75 mg/dL Normal 74-106 [facility] Comment on above: Performed By: #### P OCGLUC ####[facility] Rwrfukbmxk3441 [place] [address]Dr. Suyapalan Clement Glucose [Mass/Vol] 83 mg/dL Normal 74-106 [facility] Comment on above: Performed By: #### P OCGLUC ####[facility] Jtswusktmm0[address] [place] [address]Dr. Yilan Clement Glucose [Mass/Vol] 107 mg/dL Critically high 74-106 [facility] Comment on above: Performed By: #### P OCGLUC ####[facility] Bvkisgagiv8046 [place] [address]Dr. Yilan Clement Glucose [Mass/Vol] 140 mg/dL Critically high 74-106 [facility] Comment on above: Performed By: #### P OCGLUC ####[facility] Vdccqenqtm17[address] [place] [id number]. Abiel Urbano CBC AUTO DIFFon 06-01-2022 BASO # 0.0 103/ul Normal 0.0-0.1 [facility] Comment on above: Performed By: #### C BC ####[facility] Koqknuktxs[address] [place], [place] [address]Dr. Abiel Clement Basophils/100 WBC (Bld) 0.3 % Normal 0.2-2.0 [facility] Comment on above: Performed By: #### C BC ####[facility] Uslptqumnc22[address] [place], [place] [address]Dr. Abiel Clement EO # 0.2 103/ul Normal 0.0-0.7 [facility] Comment on above: Performed By: #### C BC ####[facility] Kpfxdbyfju[address] [place], [place] [address]Dr. Abiel Clement Eosinophils/100 WBC (Bld) 1.9 % Normal 0.9-7.0 [facility] Comment on above: Performed By: #### C BC ####[facility] Ldekmquhpx[address] [place], [place] [address]Dr. Suyapaviviana Clement Erythrocyte distribution width (RBC) [Ratio] 13.8 % Normal 11.0-15.0 [facility] Comment on above: Performed By: #### C BC ####[facility] Qwydaobwch[address] [place], [place] [address]Dr. Abiel Clement Hematocrit (Bld) [Volume fraction] 37.7 % Normal 36.0-48.0 [facility] Comment on above: Performed By: #### C BC ####[facility] Uanvfxyyot[address] [place], [place] [address]Dr. Abiel Clement Hemoglobin (Bld) [Mass/Vol] 11.7 g/dL Critically low 12.0-16.0 [facility] Comment on above: Performed By: #### C BC ####[facility] Jbzgclbqbg[address] [place], [place] [address]Dr. Abiel Clement IG # 0.03 10e3/ul Normal 0.00-0.03 [facility] Comment on above: Performed By: #### C BC ####[facility] Xfchwbadfb6299 [place] [id number]. Suyapaviviana Clement IG % 0.3 % Normal 0.0-0.5 [facility] Comment on above: Performed By: #### C BC ####[facility] Alsanctwuf264[address] [place] [id number]. Abiel Urbano LYMPH # 1.1 103/ul Critically low 1.2-3.8 [facility] Comment on above: Performed By: #### C BC ####[facility] Kfknterkuk[address] [place] [id number]. Suyapaviviana Clement Lymphocytes/100 WBC (Bld) 12.0 % Critically low 20.5-60.0 [facility] Comment on above: Performed By: #### C BC ####[facility] Kbzvmkotyl56[address] [place] [address]Dr. Abiel Clement MANUAL DIFF REQ NO Normal [facility] Comment on above: Performed By: #### C BC ####[facility] Wdwvqfmptc7[address] [place] [phone]. Abiel Urbano MCH (RBC) [Entitic mass] 27.9 pg Normal 26.7-34.0 [facility] Comment on above: Performed By: #### C BC ####[facility] Fdwrgfrqis8[address] [place] [phone]. Abiel Urbano MCHC (RBC) [Mass/Vol] 31.0 g/dL Normal 29.9-35.2 [facility] Comment on above: Performed By: #### C BC ####[facility] Xbikmqfxkh91[address] [place] [phone]. Abiel Urbano MCV (RBC) [Entitic vol] 89.8 fL Normal 81.0-99.0 [facility] Comment on above: Performed By: #### C BC ####[facility] Qbhxrqaefp94[address] [place] [address]Dr. Abiel Clement MONO # 0.7 103/ul Normal 0.3-0.8 [facility] Comment on above: Performed By: #### C BC ####[facility] Llnkuokdtp1781 [place] [phone]. Abiel Clement Monocytes/100 WBC (Bld) 8.0 % Normal 1.7-12.0 [facility] Comment on above: Performed By: #### C BC ####[facility] Ylwgmqvoed54[address] [place] [id number]. Abiel Clement NEUT # 6.9 103/ul Critically high 1.4-6.5 [facility] Comment on above: Performed By: #### C BC ####[facility] Roixacyztx3520 [place] [phone]. Abiel Clement Neutrophils/100 WBC (Bld) 77.5 % Critically high 43.0-75.0 [facility] Comment on above: Performed By: #### C BC ####[facility] Ehqxwntmja3165 [place] [phone]. Abiel Clement Platelet mean volume (Bld) [Entitic vol] 11.1 fL Normal 9.5-13.5 [facility] Comment on above: Performed By: #### C BC ####[facility] Uurgslfhmv[address] [place] [address]Dr. Abiel Clement PLT 276 103/ul Normal 150-450 [facility] Comment on above: Performed By: #### C BC ####[facility] Efovoshskt7[address] [place] [id number]. Abiel Clement RBC 4.20 106/ul Normal 4.20-5.40 [facility] Comment on above: Performed By: #### C BC ####[facility] Jphhuckree7[address] [place] [phone]. Abiel Clement WBC 8.9 103/ul Normal 4.0-11.0 [facility] Comment on above: Performed By: #### C BC ####[facility] Cduenqddig[address] [place] [id number]. Abiel Clement POINT OF CARE GLUCOSEon 09-2 Glucose [Mass/Vol] 121 mg/dL Critically high 74-106 [facility] Comment on above: Performed By: #### P OCGLUC ####[facility] Voqhdroove[address] [place] [address]Dr. Abiel Clement Glucose [Mass/Vol] 303 mg/dL Critically high 74-106 [facility] Comment on above: Performed By: #### P OCGLUC ####[facility] Xynhwolzlt400[address] [place] [address]Dr. Abiel Clement PROF 14(COMP METB)on 022 Albumin [Mass/Vol] 2.8 g/dL Critically low 3.4-5.0 [facility] Comment on above: Performed By: #### C MP ####[facility] Atqtdewsqu[address] [place], [place] [address]Dr. Abiel Clement Albumin/Globulin [Mass ratio] 0.7 {ratio} Normal [facility] Comment on above: Performed By: #### C MP ####[facility] Tretvsfodq[address] [place], [place] [address]Dr. Abiel Clement ALP [Catalytic activity/Vol] 174 U/L Critically high 46-116 [facility] Comment on above: Performed By: #### C MP ####[facility] Oxzditgexz[address] [place], [place] [address]Dr. Abiel Clement ALT [Catalytic activity/Vol] 14 U/L Normal 14-59 [facility] Comment on above: Performed By: #### C MP ####[facility] Bmrbfavofs[address] [place], [place] [address]Dr. Abiel Clement Anion gap [Moles/Vol] 14.2 mmol/L Normal [facility] Comment on above: Performed By: #### C MP ####[facility] Gsxergqqnu[address] [place], [place] [address]Dr. Abiel Clement AST [Catalytic activity/Vol] 13 U/L Critically low 15-37 [facility] Comment on above: Performed By: #### C MP ####[facility] Obrdzumeej[address] [place], [place] [address]Dr. Abiel Clement Bilirubin [Mass/Vol] 0.1 mg/dL Critically low 0.2-1.0 [facility] Comment on above: Performed By: #### C MP ####[facility] Juwvznbeni5058 [place] [id number]. Abiel Clement Calcium [Mass/Vol] 8.9 mg/dL Normal 8.5-10.1 [facility] Comment on above: Performed By: #### C MP ####[facility] Gvournybhw6042 [place] [id number]. Abiel Clement Chloride [Moles/Vol] 99 mmol/L Normal 98-107 [facility] Comment on above: Performed By: #### C MP ####[facility] Pydcfsyqry7354 [place] [id number]. Abiel Clement CO2 [Moles/Vol] 27.1 mmol/L Normal 21.0-32.0 [facility] Comment on above: Performed By: #### C MP ####[facility] Jayzvnvtdi[address] [place] [address]Dr. Abiel Urbano Creatinine [Mass/Vol] 1.19 mg/dL Critically high 0.55-1.02 [facility] Comment on above: Performed By: #### C MP ####[facility] Etaqowgfur[address] [place] [id number]. Abiel Urbano EGFR-AF HAITIAN 56 mL/min/1.73m2 Critically low >=60 [facility] Comment on above: Performed By: #### C MP ####[facility] Cgyhcyqrxo5536 [place] [phone]. Abiel Urbano EGFR-NON AF HAITIAN 46 mL/min/1.73m2 Critically low >=60 [facility] Comment on above: Performed By: #### C MP ####[facility] Wrnlouvmdt8543 [place] [phone]. Abiel Urbano Globulin (S) [Mass/Vol] 4.0 g/dL Normal [facility] Comment on above: Performed By: #### C MP ####[facility] Aawgsdilhx4676 [place] [phone]. Abiel Clement Glucose [Mass/Vol] 148 mg/dL Critically high 74-106 [facility] Comment on above: Performed By: #### C MP ####[facility] Njhgaqvazz2641 [place] [address]Dr. Abiel Clement Potassium [Moles/Vol] 4.3 mmol/L Normal 3.5-5.1 [facility] Comment on above: Performed By: #### C MP ####[facility] Nnloucvhor7713 [place] [address]Dr. Abiel Clement Protein [Mass/Vol] 6.8 g/dL Normal 6.4-8.2 [facility] Comment on above: Performed By: #### C MP ####[facility] Taihwsqeqe[address] [place], [place] [address]Dr. Abiel Clement Sodium [Moles/Vol] 136 mmol/L Normal 136-145 [facility] Comment on above: Performed By: #### C MP ####[facility] [address]crrltexv[address] [place], [place] [address]Dr. Abiel Clement Urea nitrogen [Mass/Vol] 25.0 mg/dL Critically high 7.0-18.0 [facility] Comment on above: Performed By: #### C MP ####[facility] Ifdoiqarlv[address] [place], [place] [address]Dr. Abiel Clement Urea nitrogen/Creatinine [Mass ratio] 21.0 mg/mg [facility] Comment on above: Performed By: #### C MP ####[facility] Orvdtmiyhm[address] [place], [place] [address]Dr. Abiel Clement XR CHEST 1 Von 06-01-2022 XR CHEST 1 V Normal [facility] POINT OF CARE GLUCOSEon 05-07 Glucose [Mass/Vol] 195 mg/dL Critically high 74-106 [facility] Comment on above: Performed By: #### P OCGLUC ####[facility] Npeihaetig[address] [place], [place] [address]Dr. Abiel Clement Glucose [Mass/Vol] 236 mg/dL Critically high 74-106 [facility] Comment on above: Performed By: #### P OCGLUC ####[facility] Qpnztwyiyq[address] [place], [place] [address]Dr. Abiel Clement Glucose [Mass/Vol] 169 mg/dL Critically high 74-106 [facility] Comment on above: Performed By: #### P OCGLUC ####[facility] Srafhxncxx2843 [place] [id number]. Abiel Clement Glucose [Mass/Vol] 162 mg/dL Critically high 74-106 [facility] Comment on above: Performed By: #### P OCGLUC ####[facility] Khbhqhtazs27[address] [place] [address]Dr. Abiel Clement XR FOOT RT MIN 3 VIEWSon XR FOOT RT MIN 3 VIEWS Normal [facility] Covid-19 PCR (CVDTB)on 05-07 SARS-CoV-2 (COVID-19) RNA CLARIBEL+probe Ql (Unsp spec) Not detected Normal NOT DETECTED [facility] Comment on above: Result Comment: This test is not yet approved or cleared by the [place] FDA. When there are no FDA-approved or cleared tests available, and other criteria are met, FDA can make tests available under an emergency access mechanism called an Emergency Use Authorization (EUA). The EUA for this test is supported by the [place] of Health and Human Service's (HHS's) declaration [...] with SARS-CoV-2. Performed By: #### C VDTBH ####[facility] [address] [place] [address]Dr. Abiel Clement PROF CHEM 8 (BAS METB)on Anion gap [Moles/Vol] 11.8 mmol/L Normal [facility] Comment on above: Performed By: #### B MP ####[facility] [address] [place] [address]Dr. Abiel Clement Calcium [Mass/Vol] 9.1 mg/dL Normal 8.5-10.1 [facility] Comment on above: Performed By: #### B MP ####[facility] [address]qtex[address] [place] [address]Dr. Abiel Clement Chloride [Moles/Vol] 104 mmol/L Normal 98-107 [facility] Comment on above: Performed By: #### B MP ####[facility] Xngqyxsssz[address] [place] [address]Dr. Abiel Clement CO2 [Moles/Vol] 27.6 mmol/L Normal 21.0-32.0 [facility] Comment on above: Performed By: #### B MP ####[facility] E[address] [place], [place] [address]Dr. Abiel Clement Creatinine [Mass/Vol] 0.89 mg/dL Normal 0.55-1.02 [facility] Comment on above: Performed By: #### B MP ####[facility] Udfkprovvm[address] [place], [place] [address]Dr. Abiel Clement EGFR-AF HAITIAN >60 Normal >=60 [facility] Comment on above: Performed By: #### B MP ####[facility] Zldnewezpa[address] [place], [place] [address]Dr. Abiel Clement EGFR-NON AF HAITIAN >60 Normal >=60 [facility] Comment on above: Performed By: #### B MP ####[facility] Zxipvcpkan[address] [place], [place] [address]Dr. Abiel Clement Glucose [Mass/Vol] 83 mg/dL Normal 74-106 [facility] Comment on above: Performed By: #### B MP ####[facility] Mppfxgruzr7[address] [place], [place] [address]Dr. Abiel Clement Potassium [Moles/Vol] 4.4 mmol/L Normal 3.5-5.1 [facility] Comment on above: Performed By: #### B MP ####[facility] [address]ix[address] [place] [id number]. Abiel Clement Sodium [Moles/Vol] 139 mmol/L Normal 136-145 [facility] Comment on above: Performed By: #### B MP ####[facility] Xcqqrfasxq01[address] [place] [id number]. Abiel Clement Urea nitrogen [Mass/Vol] 18.0 mg/dL Normal 7.0-18.0 [facility] Comment on above: Performed By: #### B MP ####[facility] G[address]ze[address]rg[address]ad[address] [place] [address]Dr. Abiel Clement Urea nitrogen/Creatinine [Mass ratio] 20.2 mg/mg Normal [facility] Comment on above: Performed By: #### B MP ####[facility] Jaoyeuachc6[address] [place], [place] [address]Dr. Abiel Clement CT CSPINE WO CONon 2 CT CSPINE WO CON Normal [facility] CT HEAD WO CONon 05-19-2022 CT HEAD WO CON Normal [facility] XR HIP RT 2 3V W PELVISon XR HIP RT 2 3V W PELVIS Normal [facility] CT FOOT RT WO CONon 05-13-20 CT FOOT RT WO CON Normal [facility] BLOOD CULTURE ID PANELon A. baumannii Not detected Normal NOT DETECTED [facility] Comment on above: Performed By: #### B CID2 ####[facility] Pclndnpkxp18[address] [place], [place] [address]Dr. Abiel Clement Bacteriodes fragilis Not detected Normal NOT DETECTED [facility] Comment on above: Performed By: #### B CID2 ####[facility] [address]vq[address] [place] [address]Dr. Abiel Clement BCID CONTROLS PASSED Normal [facility] Comment on above: Performed By: #### B CID2 ####[facility] Hzrhiagelo65[address] [place] [id number]. Abiel Clement BCIDBTHD BLOOD CULTURE BOTTLE INFORMATION Normal [facility] Comment on above: Performed By: #### B CID2 ####[facility] Naovzteocp4[address] [place] [id number]. Yiviviana Clement BCIDHD1 ANTIMICROBIAL RESISTANCE GENES Normal [facility] Comment on above: Performed By: #### B CID2 ####[facility] Erjicjcvma[address] [place] [address]Dr. Yiviviana Clement BCIDHD2 SEE BELOW Normal [facility] Comment on above: Result Comment: Note : Antimicrobial resitance can occur via multiple mechanisms. A Not Detected result for the [employer] antomicrobial resistance gene assays does not indicate antimicrobial susceptibility. Subculturing is required for species identification and susceptibility testing of isolates. Performed By: #### B CID2 ####[facility] Tnjifrktyl[address] [place], [place] [address]Dr. Yiivviana Clement BCIDHD3 Positive Normal [facility] [place] [facility] Comment on above: Performed By: #### B CID2 ####[facility] Yvsoelenwv2265[address] [place], [place] [address]Dr. Yiviviana Clement BCIDHD4 Negative Normal [facility] Comment on above: Performed By: #### B CID2 ####[facility] Glcupmtykj712[address] [place], [place] [address]Dr. Yiviviana Clement BCIDHD5 YEAST Normal [facility] Comment on above: Performed By: #### B CID2 ####[facility] Kxxnrmsjdi[address] [place], [place] [address]Dr. Yilan Clement Bottle Set: Set 1 Normal [facility] Comment on above: Performed By: #### B CID2 ####[facility] Tuhdmjvsug[address] [place], [place] [address]Dr. Yilan Clement Bottle: Aerobic Normal [facility] Comment on above: Performed By: #### B CID2 ####[facility] X[address]wx[address] [place] [address]Dr. Yilan Clement C. neoformans/gattii Not detected Normal NOT DETECTED [facility] Comment on above: Performed By: #### B CID2 ####[facility] [address]eb[address]emzai[address] [place] [address]Dr. Yiviviana Clement Sakshi albicans Not detected Normal NOT DETECTED [facility] Comment on above: Performed By: #### B CID2 ####[facility] Izpaurtnkd[address] [place] [id number]. Yiviviana Clement Sakshi auris Not detected Normal NOT DETECTED [facility] Comment on above: Performed By: #### B CID2 ####[facility] Hpmruckpbb[address] [place] [address]Dr. Yiviviana Clement Sakshi glabrata Not detected Normal NOT DETECTED [facility] Comment on above: Performed By: #### B CID2 ####[facility] Fmaxgxlgpt8[address] [place] [address]Dr. Yiviviana Clement Sakshi Krusei Not detected Normal NOT DETECTED [facility] Comment on above: Performed By: #### B CID2 ####[facility] Psvyduneol[address] [place], [place] [address]Dr. Yiviviana Clement Sakshi Parapsilosis Not detected Normal NOT DETECTED [facility] Comment on above: Performed By: #### B CID2 ####[facility] Ufzxatgqih57[address] [place], [place] [address]Dr. Yiviviana Clement Sakshi Tropicalis Not detected Normal NOT DETECTED [facility] Comment on above: Performed By: #### B CID2 ####[facility] Pibfgbolfl[address] [place], [place] [address]Dr. Abiel Clement CTX-M Resistant Gene Not Applicable Normal NOT DETECTE D [facility] [place] [facility] Comment on above: Performed By: #### B CID2 ####[facility] Fortipujkv9316[address] [place], [place] [address]Dr. Yiviviana Clement E. Cloacae complex Not detected Normal NOT DETECTED [facility] Comment on above: Performed By: #### B CID2 ####[facility] Vvvwfkaiev[address] [place] [address]Dr. Yilan Clement E. faecalis Not detected Normal NOT DETECTED [facility] Comment on above: Performed By: #### B CID2 ####[facility] Mcrhhotmeg44[address] [place], [place] [address]Dr. Yivviiana Clement E. faecium Not detected Normal NOT DETECTED [facility] Comment on above: Performed By: #### B CID2 ####[facility] Cbgmhfupht[address] [place], [place] [id number]. Suyapaviviana Clement Enterobacteriaceae Not detected Normal NOT DETECTED [facility] Comment on above: Performed By: #### B CID2 ####[facility] Npvhvxukrq714[address] [place], [place] [address]Dr. Abiel Clement Escherichia coli Not detected Normal NOT DETECTED [facility] Comment on above: Performed By: #### B CID2 ####[facility] Kuxunpwdwz25[address] [place], [place] [address]Dr. Abiel Clement H. influenzae Not detected Normal NOT DETECTED [facility] Comment on above: Performed By: #### B CID2 ####[facility] Lnubxuwdcw2979[address] [place], [place] [address]Dr. Abiel Clement IMP Resistant Gene Not Applicable Normal NOT DETECTED [facility] Comment on above: Performed By: #### B CID2 ####[facility] Hejhbuhlod736[address] [place], [place] [address]Dr. Abiel Clement K. oxytoca Not detected Normal NOT DETECTED [facility] Comment on above: Performed By: #### B CID2 ####[facility] Zbifmtpmlp376[address] [place], [place] [address]Dr. Abiel Clement K. pneumoniae Not detected Normal NOT DETECTED [facility] Comment on above: Performed By: #### B CID2 ####[facility] Krpokyygsr3914[address] [place], [place] [address]Dr. Abiel Clement Klebsiella aerogenes Not detected Normal NOT DETECTED [facility] Comment on above: Performed By: #### B CID2 ####[facility] S[address]xpciuvoa[address] [place], [place] [address]Dr. Abiel Clement KPC Resistant Gene Not detected Normal NOT DETECTED [facility] Comment on above: Performed By: #### B CID2 ####[facility] Fxygejdztk1812[address] [place], [place] [address]Dr. Abiel Clement List. monocytogenes Not detected Normal NOT DETECTED [facility] Comment on above: Performed By: #### B CID2 ####[facility] Wemcnbdcvt95[address] [place], [place] [address]Dr. Abiel Clement Mcr-1 Resistant Gene Not Applicable Normal NOT DETECTE D [facility] Comment on above: Performed By: #### B CID2 ####[facility] Crmdilnihe8518[address] [place], [place] [address]Dr. Suyapaviviana Urbano mecA/C Not Applicable Normal NOT DETECTED [facility] Comment on above: Performed By: #### B CID2 ####[facility] Ecwwkcfgvb[address] [place], [place] [address]Dr. Abiel Clement mecA/C MREJ Not Applicable Normal NOT DETECTED [facility] Comment on above: Performed By: #### B CID2 ####[facility] Axvtiugdbw7035[address] [place], [place] [address]Dr. Abiel Clement N. meningitidis Not detected Normal NOT DETECTED [facility] Comment on above: Performed By: #### B CID2 ####[facility] Fvirroktje9824[address] [place], [place] [address]Dr. Abiel Clement NDM Resistant Gene Not Applicable Normal NOT DETECTED [facility] Comment on above: Performed By: #### B CID2 ####[facility] Qhvaivkpuy355[address] [place], [place] [address]Dr. Abiel Clement Oxa-48-like Not Applicable Normal NOT DETECTED [facility] Comment on above: Performed By: #### B CID2 ####[facility] Xowigjrnol79[address] [place], [place] [address]Dr. Abiel Clement Proteus Not detected Normal NOT DETECTED [facility] Comment on above: Performed By: #### B CID2 ####[facility] Rqhtxkxlhu2469[address] [place], [place] [address]Dr. Abiel Clement Pseud. aeruginosa Not detected Normal NOT DETECTED [facility] Comment on above: Performed By: #### B CID2 ####[facility] Vvnowqygfi9950[address] [place], [place] [address]Dr. Abiel Clement S. maltophilia Not detected Normal NOT DETECTED [facility] Comment on above: Performed By: #### B CID2 ####[facility] Xkpiooxwtw377[address] [place], [place] [address]Dr. Abiel Clement Salmonella Not detected Normal NOT DETECTED [facility] Comment on above: Performed By: #### B CID2 ####[facility] Pbxiosxflb[address] [place] [address]Dr. Abiel Clement Seratia marcescens Not detected Normal NOT DETECTED [facility] Comment on above: Performed By: #### B CID2 ####[facility] Brujflmkpf[address] [place] [address]Dr. Abiel Clement Site: R A/c Normal [facility] Comment on above: Performed By: #### B CID2 ####[facility] Cgojpjrhnq[address] [place], [place] [address]Dr. Abiel Clement Staph. aureus Not detected Normal NOT DETECTED [facility] Comment on above: Performed By: #### B CID2 ####[facility] Gsxqnsblmw512[address] [place], [place] [address]Dr. Abiel Clement Staph. epidermidis Not detected Normal NOT DETECTED [facility] Comment on above: Performed By: #### B CID2 ####[facility] Vhgaiafwxg[address] [place], [place] [address]Dr. Abiel Clement Staph. lugdunensis Not detected Normal NOT DETECTED [facility] Comment on above: Performed By: #### B CID2 ####[facility] Ntzqkinfpq668[address] [place], [place] [address]Dr. Abiel Clement Staphylococcus Not detected Normal NOT DETECTED [facility] Comment on above: Performed By: #### B CID2 ####[facility] Mcsmuuzoeq[address] [place], [place] [address]Dr. Abiel Clement Strep. agalactiae Not detected Normal NOT DETECTED [facility] Comment on above: Performed By: #### B CID2 ####[facility] Ovsxzfcsvy596[address] [place], [place] [address]Dr. Abiel Clement Strep. pneumoniae Not detected Normal NOT DETECTED [facility] Comment on above: Performed By: #### B CID2 ####[facility] Vvbwxztrat[address] [place], [place] [address]Dr. Abiel Clement Strep. pyogenes Not detected Normal NOT DETECTED [facility] Comment on above: Performed By: #### B CID2 ####[facility] Kgewoxmhzl[address] [place], [place] [address]Dr. Abiel Clement Streptococcus Detected Abnormal NOT DETECTED [facility] Comment on above: Performed By: #### B CID2 ####[facility] Xbdmflylkb6439[address] [place], [place] [address]Dr. Abiel Clement Jarvis/B Resist. Gene Not detected Normal NOT DETECTED [facility] Comment on above: Performed By: #### B CID2 ####[facility] Nnlhpderxt5675[address] [place], [place] [address]Dr. Abiel Clement VIM Resistant Gene Not Applicable Normal NOT DETECTED [facility] Comment on above: Performed By: #### B CID2 ####[facility] Gpmiqxxnkd9339[address] [place], [place] [address]Dr. Abiel Clement BNPon 04-30-2022 Natriuretic peptide B (Bld) [Mass/Vol] 127.0 pg/mL Normal <=900.0 [facility] [place] [facility] Comment on above: Performed By: #### B FUR PULLER, CMP, HSTROPN ####[facility] Fmqknhepkr27[address] [place], [place] [address]Dr. Abiel Clement CBC AUTO DIFFon 04-30-2022 BASO # 0.1 103/ul Normal 0.0-0.1 [facility] [place] [facility] Comment on above: Performed By: #### C BC ####[facility] Cvvcqfwetn[address] [place], [place] [address]Dr. Abiel Clement Basophils/100 WBC (Bld) 0.6 % Normal 0.2-2.0 [facility] Comment on above: Performed By: #### C BC ####[facility] Cagimetaed43[address] [place], [place] [address]Dr. Abiel Clement EO # 0.3 103/ul Normal 0.0-0.7 [facility] Comment on above: Performed By: #### C BC ####[facility] Yfztizlzjd[address] [place], [place] [address]Dr. Abiel Clement Eosinophils/100 WBC (Bld) 2.8 % Normal 0.9-7.0 [facility] Comment on above: Performed By: #### C BC ####[facility] [address]xdrenfn[address] [place] [address]Dr. Abiel Clement Erythrocyte distribution width (RBC) [Ratio] 12.9 % Normal 11.0-15.0 [facility] [place] [facility] Comment on above: Performed By: #### C BC ####[facility] Jwgcvgxava645[address] [place], [place] [address]Dr. Abiel Clement Hematocrit (Bld) [Volume fraction] 38.7 % Normal 36.0-48.0 [facility] [place] [facility] Comment on above: Performed By: #### C BC ####[facility] Qkkgzsqetu[address] [place], [place] [address]Dr. Abiel Clement Hemoglobin (Bld) [Mass/Vol] 12.5 g/dL Normal 12.0-16.0 [facility] [place] [facility] Comment on above: Performed By: #### C BC ####[facility] Hndxkzgjtz[address] [place], [place] [address]Dr. Abiel Clement IG # 0.03 10e3/ul Normal 0.00-0.03 [facility] [place] [facility] Comment on above: Performed By: #### C BC ####[facility] Ivbrtcdqkh[address] [place], [place] [address]Dr. Abiel Clement IG % 0.3 % Normal 0.0-0.5 [facility] [place] [facility] Comment on above: Performed By: #### C BC ####[facility] Hafwucahkj[address] [place], [place] [address]Dr. Abiel Clement LYMPH # 1.6 103/ul Normal 1.2-3.8 [facility] Comment on above: Performed By: #### C BC ####[facility] Rtdfkpiabp[address] [place], [place] [address]Dr. Abiel Clement Lymphocytes/100 WBC (Bld) 15.0 % Critically low 20.5-60.0 [facility] [place] [facility] Comment on above: Performed By: #### C BC ####[facility] Teaunmwpse[address] [place], [place] [address]Dr. Abiel Clement MANUAL DIFF REQ NO Normal [facility] Comment on above: Performed By: #### C BC ####[facility] [address] [place] [id number]. Abiel Urbano MCH (RBC) [Entitic mass] 28.9 pg Normal 26.7-34.0 [facility] Comment on above: Performed By: #### C BC ####[facility] Goyxtevyvw[address] [place] [id number]. Abiel Urbano MCHC (RBC) [Mass/Vol] 32.3 g/dL Normal 29.9-35.2 [facility] Comment on above: Performed By: #### C BC ####[facility] Vnrgjbxfdh[address] [place] [address]Dr. Suyapaviviana Clement MCV (RBC) [Entitic vol] 89.6 fL Normal 81.0-99.0 [facility] Comment on above: Performed By: #### C BC ####[facility] [address]feiiojk[address] [place], [place] [address]Dr. Abiel Clement MONO # 0.8 103/ul Normal 0.3-0.8 [facility] Comment on above: Performed By: #### C BC ####[facility] [address]gswercp[address] [place] [address]Dr. Abiel Clement Monocytes/100 WBC (Bld) 7.2 % Normal 1.7-12.0 [facility] Comment on above: Performed By: #### C BC ####[facility] [address]uzvuxdcwx[address] [place], [place] [address]Dr. Abiel Clement NEUT # 7.9 103/ul Critically high 1.4-6.5 [facility] Comment on above: Performed By: #### C BC ####[facility] [address]vn[address] [place], [place] [address]Dr. Abiel Clement Neutrophils/100 WBC (Bld) 74.1 % Normal 43.0-75.0 [facility] Comment on above: Performed By: #### C BC ####[facility] Uuwlesrvmj[address] [place] [id number]. Abiel Clement Platelet mean volume (Bld) [Entitic vol] 10.9 fL Normal 9.5-13.5 [facility] Comment on above: Performed By: #### C BC ####[facility] [address] [place], [place] [address]Br. Abiel Clement PLT 308 103/ul Normal 150-450 [facility] Comment on above: Performed By: #### C BC ####[facility] [address]wo[address] [place], [place] [address]Sh. Abiel Clement RBC 4.32 106/ul Normal 4.20-5.40 [facility] Comment on above: Performed By: #### C BC ####[facility] W[address]umeofwey54[address] [place], [place] [address]Xz. Abiel Clement WBC 10.6 103/ul Normal 4.0-11.0 [facility] Comment on above: Performed By: #### C BC ####[facility] [address]cch[address]jcm[address]60 [place], [place] [address]Jd. Abiel Clement Covid-19 PCR (CVDTB)on 04-06 SARS-CoV-2 (COVID-19) RNA CLARIBEL+probe Ql (Unsp spec) Not detected Normal NOT DETECTED [facility] Comment on above: Result Comment: [...] for this test is supported by the [place] of Health and Human Service's declaration that [...] be used). Performed By: #### C VDTBH ####[facility] Qyyxcwwqum[address]406 [place], [place] [address]Ql. Abiel Clement LACTATE/LACTIC ACIDon 2021 Lactate [Moles/Vol] 2.3 mmol/L Critically high 0.4-1.9 [facility] [place] [facility] Comment on above: Performed By: #### L ACT ####[facility] D[address]ujmbace[address] [place] [address]Dr. Abiel Clement Lactate [Moles/Vol] 3.3 mmol/L Critically high 0.4-1.9 [facility] [place] [facility] Comment on above: Performed By: #### L ACT ####[facility] Wh[address]ngdutih[address] [place] [address]Dr. Abiel Clement PROF 14(COMP METB)on 022 Albumin [Mass/Vol] 3.0 g/dL Critically low 3.4-5.0 [facility] Comment on above: Performed By: #### B FUR PULLER, CMP, HSTROPN ####[facility] Vlkzqnofpt[address] [place], [place] [address]Dr. Abiel Clement Albumin/Globulin [Mass ratio] 0.7 {ratio} Normal [facility] [place] [facility] Comment on above: Performed By: #### B FUR PULLER, CMP, HSTROPN ####[facility] [address]ockzuqvo[address] [place], [place] [address]Dr. Abiel Clement ALP [Catalytic activity/Vol] 218 U/L Critically high 46-116 [facility] [place] [facility] Comment on above: Performed By: #### B FUR PULLER, CMP, HSTROPN ####[facility] Jpwhxoethh[address] [place] [address]Dr. Abiel Clement ALT [Catalytic activity/Vol] 29 U/L Normal 14-59 [facility] [place] [facility] Comment on above: Performed By: #### B FUR PULLER, CMP, HSTROPN ####[facility] Vvchgitkii[address] [place], [place] [address]Dr. Abiel Clement Anion gap [Moles/Vol] 14.3 mmol/L Normal [facility] Comment on above: Performed By: #### B FUR PULLER, CMP, HSTROPN ####[facility] Ofbrjeynal[address] [place], [place] [address]Dr. Abiel Clement AST [Catalytic activity/Vol] 20 U/L Normal 15-37 [facility] Comment on above: Performed By: #### B FUR PULLER, CMP, HSTROPN ####[facility] [address]xvpjcw[address] [place] [address]Dr. Abiel Clement Bilirubin [Mass/Vol] 0.3 mg/dL Normal 0.2-1.0 [facility] Comment on above: Performed By: #### B FUR PULLER, CMP, HSTROPN ####[facility] [address]xuf[address] [place] [address]Dr. Abiel Clement Calcium [Mass/Vol] 9.2 mg/dL Normal 8.5-10.1 [facility] Comment on above: Performed By: #### B FUR PULLER, CMP, HSTROPN ####[facility] [address]xb[address]xz[address] [place] [address]Dr. Abiel Clement Chloride [Moles/Vol] 98 mmol/L Normal 98-107 [facility] Comment on above: Performed By: #### B FUR PULLER, CMP, HSTROPN ####[facility] [address]yaevgeah[address] [place] [address]Dr. Abiel Clement CO2 [Moles/Vol] 26.5 mmol/L Normal 21.0-32.0 [facility] Comment on above: Performed By: #### B FUR PULLER, CMP, HSTROPN ####[facility] [address]omnz[address] [place] [address]Dr. Abiel Clement Creatinine [Mass/Vol] 1.10 mg/dL Critically high 0.55-1.02 [facility] [place] [facility] Comment on above: Performed By: #### B FUR PULLER, CMP, HSTROPN ####[facility] [address]qkgfwj[address] [place] [address]Dr. Abiel Clement EGFR-AF HAITIAN >60 Normal >=60 [facility] Comment on above: Performed By: #### B FUR PULLER, CMP, HSTROPN ####[facility] [address]ns[address]zcj[address] [place] [address]Dr. Abiel Clement EGFR-NON AF HAITIAN 50 mL/min/1.73m2 Critically low >=60 [facility] Comment on above: Performed By: #### B FUR PULLER, CMP, HSTROPN ####[facility] [address]tr[address] [place] [address]Dr. Abiel Clement Globulin (S) [Mass/Vol] 4.3 g/dL Normal [facility] [place] [facility] Comment on above: Performed By: #### B FUR PULLER, CMP, HSTROPN ####[facility] Lfwtggejex[address] [place] [address]Dr. Abiel Clement Glucose [Mass/Vol] 338 mg/dL Critically high 74-106 [facility] Comment on above: Performed By: #### B FUR PULLER, CMP, HSTROPN ####[facility] Nzkdnnrxdd[address] [place] [address]Dr. Abiel Clement Potassium [Moles/Vol] 3.8 mmol/L Normal 3.5-5.1 [facility] [place] [facility] Comment on above: Performed By: #### B FUR PULLER, CMP, HSTROPN ####[facility] [address] [place], [place] [address]Dr. Abiel Clement Protein [Mass/Vol] 7.3 g/dL Normal 6.4-8.2 [facility] Comment on above: Performed By: #### B FUR PULLER, CMP, HSTROPN ####[facility] [address]thq[address] [place] [address]Dr. Abiel Clement Sodium [Moles/Vol] 135 mmol/L Critically low 136-145 [facility] Comment on above: Performed By: #### B FUR PULLER, CMP, HSTROPN ####[facility] Ecpwnuypwl[address] [place] [address]Dr. Suyapalan Clement Urea nitrogen [Mass/Vol] 23.0 mg/dL Critically high 7.0-18.0 [facility] [place] [facility] Comment on above: Performed By: #### B FUR PULLER, CMP, HSTROPN ####[facility] Ifkhhlbmit[address] [place] [address]Dr. Abiel Clement Urea nitrogen/Creatinine [Mass ratio] 20.9 mg/mg Normal [facility] [place] [facility] Comment on above: Performed By: #### B FUR PULLER, CMP, HSTROPN ####[facility] [address]rsbwt[address] [place] [id number]. Abiel Clement TROPONIN, HIGH SENSITIVITYon 04-30-2022 HSTROP 3.8 pg/mL Critically low 4.0-51.3 [facility] Comment on above: Result Comment: CUT- OFF POINTS HAVE BEEN ESTABLISHED BASED ON THE FOURTH UNIVERSAL DEFINITIONS OF MYOCARDIALINFARCTION. THE UPPER REFERENCE LIMIT (URL) OF TROPONIN, DEFINED THE 99TH PERCENTILE OFcTnI DISTRIBUTION IN A REFERENCE POPULATION, HAS BEEN CONFIRMED THE DECISION THRESHOLDFOR [place] DIAGNOSIS. Performed By: #### H STROPN ####[facility] Hi[address]bcccwq[address] [place] [address]Dr. Abiel Clement HSTROP 4.0 pg/mL Normal 4.0-51.3 [facility] Comment on above: Result Comment: CUT- OFF POINTS HAVE BEEN ESTABLISHED BASED ON THE FOURTH UNIVERSAL DEFINITIONS OF MYOCARDIALINFARCTION. THE UPPER REFERENCE LIMIT (URL) OF TROPONIN, DEFINED THE 99TH PERCENTILE OFcTnI DISTRIBUTION IN A REFERENCE POPULATION, HAS BEEN CONFIRMED THE DECISION THRESHOLDFOR [place] DIAGNOSIS. Performed By: #### B FUR PULLER, CMP, HSTROPN ####[facility] [address]rjgl[address] [place] [address]Dr. Abiel Clement XR CHEST 1 Von 04-30-2022 XR CHEST 1 V Normal [facility] BNPon 03-15-2022 Natriuretic peptide B (Bld) [Mass/Vol] 2586.0 pg/mL Critically high <=900.0 [facility] Comment on above: Result Comment: repe ated Performed By: #### C MP, BNP, HSTROPN ####[facility] Ylzhmjokzd[address] [place] [id number]. Abiel Clement CBC AUTO DIFFon 03-15-2022 BASO # 0.0 103/ul Normal 0.0-0.1 [facility] Comment on above: Performed By: #### C BC ####[facility] Orz[address]zcqg[address] [place] [address]Dr. Abiel Clement Basophils/100 WBC (Bld) 0.4 % Normal 0.2-2.0 [facility] Comment on above: Performed By: #### C BC ####[facility] Ifctxwkckh5[address] [place] [address]Dr. Abiel Clement EO # 0.1 103/ul Normal 0.0-0.7 [facility] Comment on above: Performed By: #### C BC ####[facility] Mhybpzozab[address] [place] [address]Dr. Abiel Clement Eosinophils/100 WBC (Bld) 1.8 % Normal 0.9-7.0 [facility] Comment on above: Performed By: #### C BC ####[facility] [address]ztefg[address] [place], [place] [address]Dr. Abiel Clement Erythrocyte distribution width (RBC) [Ratio] 13.7 % Normal 11.0-15.0 [facility] Comment on above: Performed By: #### C BC ####[facility] Zeobksjtxy[address] [place], [place] [address]Dr. Abiel Clement Hematocrit (Bld) [Volume fraction] 29.7 % Critically low 36.0-48.0 [facility] [place] [facility] Comment on above: Performed By: #### C BC ####[facility] Gsp[address]nfyzr[address] [place], [place] [address]Dr. Abiel Clement Hemoglobin (Bld) [Mass/Vol] 9.5 g/dL Critically low 12.0-16.0 [facility] Comment on above: Performed By: #### C BC ####[facility] Ynnsuoxvmq[address] [place], [place] [address]Dr. Abiel Clement IG # 0.02 10e3/ul Normal 0.00-0.03 [facility] Comment on above: Performed By: #### C BC ####[facility] [address]uezvzpz[address] [place], [place] [address]Dr. Abiel Clement IG % 0.3 % Normal 0.0-0.5 [facility] Comment on above: Performed By: #### C BC ####[facility] Q[address]jjeiocm[address] [place], [place] [address]Dr. Suyapaviviana Clement LYMPH # 1.6 103/ul Normal 1.2-3.8 [facility] Comment on above: Performed By: #### C BC ####[facility] Kwrtumazxa[address] [place] [id number]. Abiel Clement Lymphocytes/100 WBC (Bld) 20.1 % Critically low 20.5-60.0 [facility] [place] [facility] Comment on above: Performed By: #### C BC ####[facility] Yxormvqcti8[address] [place] [id number]. Abiel Clement MANUAL DIFF REQ NO Normal [facility] Comment on above: Performed By: #### C BC ####[facility] Nyqhxpjblr10[address] [place] [id number]. Abiel Clement MCH (RBC) [Entitic mass] 29.6 pg Normal 26.7-34.0 [facility] Comment on above: Performed By: #### C BC ####[facility] G[address]rrwnudqu[address] [place] [address]Dr. Abiel Clement MCHC (RBC) [Mass/Vol] 32.0 g/dL Normal 29.9-35.2 [facility] Comment on above: Performed By: #### C BC ####[facility] Aiytjlaiue4[address] [place] [id number]. Abiel Clement MCV (RBC) [Entitic vol] 92.5 fL Normal 81.0-99.0 [facility] [place] [facility] Comment on above: Performed By: #### C BC ####[facility] H[address]jnccfa42[address] [place] [address]Dr. Abiel Clement MONO # 0.6 103/ul Normal 0.3-0.8 [facility] Comment on above: Performed By: #### C BC ####[facility] Chtgwbqjak9[address] [place] [id number]. Abiel Clement Monocytes/100 WBC (Bld) 7.1 % Normal 1.7-12.0 [facility] Comment on above: Performed By: #### C BC ####[facility] Oxnsumzuhk[address] [place], [place] [address]Dr. Abiel Clement NEUT # 5.5 103/ul Normal 1.4-6.5 [facility] Comment on above: Performed By: #### C BC ####[facility] Ixemedwtlo64[address] [place] [address]Dr. Abiel Clement Neutrophils/100 WBC (Bld) 70.3 % Normal 43.0-75.0 [facility] [place] [facility] Comment on above: Performed By: #### C BC ####[facility] Kfzeankriw[address] [place] [address]Dr. Abiel Clement Platelet mean volume (Bld) [Entitic vol] 10.5 fL Normal 9.5-13.5 [facility] [place] [facility] Comment on above: Performed By: #### C BC ####[facility] Xhsarfnhev[address] [place] [address]Dr. Abiel Clement PLT 250 103/ul Normal 150-450 [facility] [place] [facility] Comment on above: Performed By: #### C BC ####[facility] Zmnkkboxgn65[address] [place] [address]Dr. Abiel Clement RBC 3.21 106/ul Critically low 4.20-5.40 [facility] Comment on above: Performed By: #### C BC ####[facility] Wlckuzonel[address] [place], [place] [address]Dr. Abiel Clement WBC 7.9 103/ul Normal 4.0-11.0 [facility] [place] [facility] Comment on above: Performed By: #### C BC ####[facility] Elaq[address]izmwr[address] [place] [address]DrKasia Clement PROF 14(COMP METB)on 022 Albumin [Mass/Vol] 2.2 g/dL Critically low 3.4-5.0 [facility] Comment on above: Performed By: #### C MP, BNP, HSTROPN ####[facility] Licjsckvvv[address] [place] [address]Dr. Abiel Clement Albumin/Globulin [Mass ratio] 0.6 {ratio} Normal [facility] [place] [facility] Comment on above: Performed By: #### C MP, BNP, HSTROPN ####[facility] Angmxaixek[address] [place] [address]Dr. Abiel Clement ALP [Catalytic activity/Vol] 112 U/L Normal 46-116 [facility] [place] [facility] Comment on above: Performed By: #### C MP, BNP, HSTROPN ####[facility] Slvvcxdjiz[address] [place] [address]Dr. Abiel Clement ALT [Catalytic activity/Vol] 19 U/L Normal 14-59 [facility] [place] [facility] Comment on above: Performed By: #### C MP, BNP, HSTROPN ####[facility] Untnolgtik15[address] [place] [address]Dr. Abiel Clement Anion gap [Moles/Vol] 12.2 mmol/L Normal [facility] Comment on above: Performed By: #### C MP, BNP, HSTROPN ####[facility] Nckginools[address] [place], [place] [address]Dr. Abiel Clement AST [Catalytic activity/Vol] 15 U/L Normal 15-37 [facility] [place] [facility] Comment on above: Performed By: #### C MP, BNP, HSTROPN ####[facility] [address] [place], [place] [address]Dr. Abiel Clement Bilirubin [Mass/Vol] 0.3 mg/dL Normal 0.2-1.0 [facility] [place] [facility] Comment on above: Performed By: #### C MP, BNP, HSTROPN ####[facility] Mugnaewkti[address] [place] [address]Dr. Abiel Clement Calcium [Mass/Vol] 8.6 mg/dL Normal 8.5-10.1 [facility] Comment on above: Performed By: #### C MP, BNP, HSTROPN ####[facility] Eielnfbusv[address] [place] [address]Dr. Abiel Clement Chloride [Moles/Vol] 104 mmol/L Normal 98-107 [facility] Comment on above: Performed By: #### C MP, BNP, HSTROPN ####[facility] Lflnlpmsjb13[address] [place] [address]Dr. Abiel Clement CO2 [Moles/Vol] 25.3 mmol/L Normal 21.0-32.0 [facility] Comment on above: Performed By: #### C MP, BNP, HSTROPN ####[facility] Yistroexcm[address] [place] [address]Dr. Abiel Clement Creatinine [Mass/Vol] 0.98 mg/dL Normal 0.55-1.02 [facility] [place] [facility] Comment on above: Performed By: #### C MP, BNP, HSTROPN ####[facility] Ephhyupkne[address] [place], [place] [address]Dr. Abiel Clement EGFR-AF HAITIAN >60 Normal >=60 [facility] Comment on above: Performed By: #### C MP, BNP, HSTROPN ####[facility] V[address]fhrlrmfg[address] [place], [place] [address]Dr. Abiel Clement EGFR-NON AF HAITIAN 58 mL/min/1.73m2 Critically low >=60 [facility] [place] [facility] Comment on above: Performed By: #### C MP, BNP, HSTROPN ####[facility] [address]rmiwl[address] [place], [place] [address]Dr. Abiel Clement Globulin (S) [Mass/Vol] 3.7 g/dL Normal [facility] [place] [facility] Comment on above: Performed By: #### C MP, BNP, HSTROPN ####[facility] Y[address]btu[address] [place], [place] [address]Dr. Abiel Clement Glucose [Mass/Vol] 279 mg/dL Critically high 74-106 [facility] Comment on above: Performed By: #### C MP, BNP, HSTROPN ####[facility] Kljliabicm[address] [place], [place] [address]Dr. Abiel Clement Potassium [Moles/Vol] 3.5 mmol/L Normal 3.5-5.1 [facility] [place] [facility] Comment on above: Performed By: #### C MP, BNP, HSTROPN ####[facility] [address]zuzjcxv[address] [place], [place] [address]Dr. Abiel Clement Protein [Mass/Vol] 5.9 g/dL Critically low 6.4-8.2 [facility] Comment on above: Performed By: #### C MP, BNP, HSTROPN ####[facility] Mapfnrjwiz80[address] [place] [address]Dr. Abiel Clement Sodium [Moles/Vol] 138 mmol/L Normal 136-145 [facility] Comment on above: Performed By: #### C MP, BNP, HSTROPN ####[facility] Tnqvnkebdd9547 [place] [address]Dr. Abiel Clement Urea nitrogen [Mass/Vol] 23.0 mg/dL Critically high 7.0-18.0 [facility] [place] [facility] Comment on above: Performed By: #### C MP, BNP, HSTROPN ####[facility] Eb[address]kg[address] [place], [place] [address]Dr. Abiel Clement Urea nitrogen/Creatinine [Mass ratio] 23.5 mg/mg Normal [facility] Comment on above: Performed By: #### C MP, BNP, HSTROPN ####[facility] B[address]cv[address]efyi[address] [place], [place] [address]Dr. Abiel Clement TROPONIN, HIGH SENSITIVITYon 03-15-2022 HSTROP 9.0 pg/mL Normal 4.0-51.3 [facility] Comment on above: Result Comment: CUT- OFF POINTS HAVE BEEN ESTABLISHED BASED ON THE FOURTH UNIVERSAL DEFINITIONS OF MYOCARDIALINFARCTION. THE UPPER REFERENCE LIMIT (URL) OF TROPONIN, DEFINED THE 99TH PERCENTILE OFcTnI DISTRIBUTION IN A REFERENCE POPULATION, HAS BEEN CONFIRMED THE DECISION THRESHOLDFOR NH DIAGNOSIS. Performed By: #### C MP, BNP, HSTROPN ####[facility] [address]wtvibhtfx[address] [place], [place] [address]Dr. Abiel Clement BNPon 03-14-2022 Natriuretic peptide B (Bld) [Mass/Vol] 3438.0 pg/mL Critically high <=900.0 [facility] Comment on above: Performed By: #### H STROPN, BNP, CMP ####[facility] [address]wgwnksw[address] [place], [place] [address]Dr. Abiel Clement CBC AUTO DIFFon 03-14-2022 BASO # 0.0 103/ul Normal 0.0-0.1 [facility] [place] [facility] Comment on above: Performed By: #### C BC ####[facility] [address]ytusk[address] [place] [id number]. Abiel Clement Basophils/100 WBC (Bld) 0.4 % Normal 0.2-2.0 [facility] Comment on above: Performed By: #### C BC ####[facility] Snculemphk[address] [place] [id number]. Abiel Clement EO # 0.1 103/ul Normal 0.0-0.7 [facility] Comment on above: Performed By: #### C BC ####[facility] Tfwnecjztr[address] [place], [place] [address]Dr. Abiel Clement Eosinophils/100 WBC (Bld) 0.9 % Normal 0.9-7.0 [facility] Comment on above: Performed By: #### C BC ####[facility] Ctllhugvyp[address] [place], [place] [address]Dr. Abiel Clement Erythrocyte distribution width (RBC) [Ratio] 13.5 % Normal 11.0-15.0 [facility] [place] [facility] Comment on above: Performed By: #### C BC ####[facility] [address]uphryowaa[address] [place] [address]Dr. Abiel Clement Hematocrit (Bld) [Volume fraction] 29.5 % Critically low 36.0-48.0 [facility] [place] [facility] Comment on above: Performed By: #### C BC ####[facility] Jqsjxqbldn17[address] [place] [id number]. Abiel Clement Hemoglobin (Bld) [Mass/Vol] 9.3 g/dL Critically low 12.0-16.0 [facility] Comment on above: Performed By: #### C BC ####[facility] Fqhfgtvrby3614 [place] [phone]. Abiel Clement IG # 0.07 10e3/ul Critically high 0.00-0.03 [facility] Comment on above: Performed By: #### C BC ####[facility] Umnyh[address] [place], [place] [address]Dr. Abiel Clement IG % 0.7 % Critically high 0.0-0.5 [facility] Comment on above: Performed By: #### C BC ####[facility] Rwsjeuflkd4[address] [place] [phone]. Abiel Clement LYMPH # 1.7 103/ul Normal 1.2-3.8 [facility] Comment on above: Performed By: #### C BC ####[facility] Dspvxewkrd8134 [place], [place] [address]Gn. Abiel Urbano Lymphocytes/100 WBC (Bld) 17.0 % Critically low 20.5-60.0 [facility] Comment on above: Performed By: #### C BC ####[facility] Ilmnsxsxpt8[address] [place] [phone]. Suyapaviviana Clement MANUAL DIFF REQ NO Normal [facility] Comment on above: Performed By: #### C BC ####[facility] Vulhnigzhv28[address] [place] [phone]. Abiel Urbano MCH (RBC) [Entitic mass] 29.2 pg Normal 26.7-34.0 [facility] Comment on above: Performed By: #### C BC ####[facility] Yambshuqbq7[address] [place] [phone]. Abiel Clement MCHC (RBC) [Mass/Vol] 31.5 g/dL Normal 29.9-35.2 [facility] [place] [facility] Comment on above: Performed By: #### C BC ####[facility] Vakvpzirqn4[address] [place] [phone]. Abiel Clement MCV (RBC) [Entitic vol] 92.5 fL Normal 81.0-99.0 [facility] Comment on above: Performed By: #### C BC ####[facility] Ocfvscrugn9[address] [place] [id number]. Abiel Clement MONO # 0.9 103/ul Critically high 0.3-0.8 [facility] Comment on above: Performed By: #### C BC ####[facility] Obgsikjvgw88[address] [place] [phone]. Suyapaviviana Clement Monocytes/100 WBC (Bld) 9.1 % Normal 1.7-12.0 [facility] Comment on above: Performed By: #### C BC ####[facility] Zzxeurdmai045[address] [place] [id number]. Abiel Clement NEUT # 7.3 103/ul Critically high 1.4-6.5 [facility] Comment on above: Performed By: #### C BC ####[facility] Hkpnptucdl39[address] [place] [phone]. Abiel Clement Neutrophils/100 WBC (Bld) 71.9 % Normal 43.0-75.0 [facility] [place] [facility] Comment on above: Performed By: #### C BC ####[facility] Kskkoguvgu[address] [place] [address]Dr. Abiel Clement Platelet mean volume (Bld) [Entitic vol] 11.0 fL Normal 9.5-13.5 [facility] [place] [facility] Comment on above: Performed By: #### C BC ####[facility] Fsbcjwpcku59[address] [place] [address]Dr. Abiel Clement PLT 232 103/ul Normal 150-450 [facility] Comment on above: Performed By: #### C BC ####[facility] Aqmkdojruy45[address] [place] [phone]. Abiel Clement RBC 3.19 106/ul Critically low 4.20-5.40 [facility] Comment on above: Performed By: #### C BC ####[facility] Yvpqplxnhk8023 [place] [phone]. Abiel Clement WBC 10.1 103/ul Normal 4.0-11.0 [facility] [place] [facility] Comment on above: Performed By: #### C BC ####[facility] Svtbynlqix8[address] [place] [phone]. Abiel Clement POINT OF CARE GLUCOSEon 07- 0-2021 Glucose [Mass/Vol] 141 mg/dL Critically high 74-106 [facility] Comment on above: Performed By: #### P OCGLUC ####[facility] Dylnfwpdce[address] [place] [address]Dr. Abiel Clement Glucose [Mass/Vol] 182 mg/dL Critically high 74-106 [facility] Comment on above: Performed By: #### P OCGLUC ####[facility] Bxjfnedkkh8539 [place] [address]Dr. Abiel Clement Glucose [Mass/Vol] 235 mg/dL Critically high -106 [facility] Comment on above: Performed By: #### P OCGLUC ####[facility] Yoelosdywc8026 [place] [address]Dr. Abiel Clement Glucose [Mass/Vol] 246 mg/dL Critically high 74-106 [facility] Comment on above: Performed By: #### P OCGLUC ####[facility] Lqkgddocrj2531 [place] [address]Dr. Abiel Clement Glucose [Mass/Vol] 256 mg/dL Critically high -106 [facility] Comment on above: Performed By: #### P OCGLUC ####[facility] Busmllpmto7665 [place] [address]Dr. Abiel Clement Glucose [Mass/Vol] 249 mg/dL Critically high -106 [facility] Comment on above: Performed By: #### P OCGLUC ####[facility] Ignjmzhokh[address]42 [place] [address]Dr. Abiel Clement PROF 14(COMP METB)on 022 Albumin [Mass/Vol] 2.2 g/dL Critically low 3.4-5.0 [facility] Comment on above: Performed By: #### H STROPN, BNP, CMP ####[facility] Kjzdzzskfg27[address] [place] [address]Dr. Abiel Urbano Albumin/Globulin [Mass ratio] 0.6 {ratio} Normal [facility] [place] [facility] Comment on above: Performed By: #### H STROPN, BNP, CMP ####[facility] Rmzhiogvil[address] [place] [address]Dr. Abiel Clement ALP [Catalytic activity/Vol] 114 U/L Normal 46-116 [facility] [place] [facility] Comment on above: Performed By: #### H STROPN, BNP, CMP ####[facility] Sekyvkwook[address] [place] [address]Dr. Abiel Urbano ALT [Catalytic activity/Vol] 20 U/L Normal 14-59 [facility] [place] [facility] Comment on above: Performed By: #### H STROPN, BNP, CMP ####[facility] Jyseengbjk500[address] [place] [address]Dr. Abiel Clement Anion gap [Moles/Vol] 9.7 mmol/L Normal [facility] [place] [facility] Comment on above: Performed By: #### H STROPN, BNP, CMP ####[facility] Rycanutwey[address] [place] [address]Dr. Abiel Clement AST [Catalytic activity/Vol] 18 U/L Normal 15-37 [facility] [place] [facility] Comment on above: Performed By: #### H STROPN, BNP, CMP ####[facility] Byevxybhiu[address] [place], [place] [address]Dr. Abiel Clement Bilirubin [Mass/Vol] 0.2 mg/dL Normal 0.2-1.0 [facility] [place] [facility] Comment on above: Performed By: #### H STROPN, BNP, CMP ####[facility] [address] [place], [place] [address]Dr. Abiel Clement Calcium [Mass/Vol] 8.4 mg/dL Critically low 8.5-10.1 [facility] Comment on above: Performed By: #### H STROPN, BNP, CMP ####[facility] Mmmrdfepcx8[address] [place] [address]Dr. Abiel Clement Chloride [Moles/Vol] 105 mmol/L Normal 98-107 [facility] Comment on above: Performed By: #### H STROPN, BNP, CMP ####[facility] Evkrycumrm[address] [place], [place] [address]Dr. Abiel Clement CO2 [Moles/Vol] 26.1 mmol/L Normal 21.0-32.0 [facility] Comment on above: Performed By: #### H STROPN, BNP, CMP ####[facility] [address]zb[address]rkkbp[address] [place], [place] [address]Dr. Abiel Clement Creatinine [Mass/Vol] 1.01 mg/dL Normal 0.55-1.02 [facility] [place] [facility] Comment on above: Performed By: #### H STROPN, BNP, CMP ####[facility] Hhpowzvstl5[address] [place] [id number]. Abiel Clement EGFR-AF HAITIAN >60 Normal >=60 [facility] Comment on above: Performed By: #### H STROPN, BNP, CMP ####[facility] Mvlbbylvzi3597 [place] [id number]. Abiel Clement EGFR-NON AF HAITIAN 56 mL/min/1.73m2 Critically low >=60 [facility] [place] [facility] Comment on above: Performed By: #### H STROPN, BNP, CMP ####[facility] Mmvmatgbhe2908 [place] [id number]. Abiel Clement Globulin (S) [Mass/Vol] 3.4 g/dL Normal [facility] [place] [facility] Comment on above: Performed By: #### H STROPN, BNP, CMP ####[facility] Hskdgyyprs11[address] [place] [address]Dr. Abiel Clement Glucose [Mass/Vol] 267 mg/dL Critically high 74-106 [facility] Comment on above: Performed By: #### H STROPN, BNP, CMP ####[facility] Dmmlywyhlm4087 [place] [address]Dr. Abiel Clement Potassium [Moles/Vol] 3.8 mmol/L Normal 3.5-5.1 [facility] [place] [facility] Comment on above: Performed By: #### H STROPN, BNP, CMP ####[facility] Ivralonruj23[address] [place] [address]Dr. Abiel Clement Protein [Mass/Vol] 5.6 g/dL Critically low 6.4-8.2 [facility] Comment on above: Performed By: #### H STROPN, BNP, CMP ####[facility] Jhyabtlzds[address] [place] [address]Dr. Abiel Clement Sodium [Moles/Vol] 137 mmol/L Normal 136-145 [facility] Comment on above: Performed By: #### H STROPN, BNP, CMP ####[facility] Xhdbtivojj9848 [place] [address]Dr. Abiel Clement Urea nitrogen [Mass/Vol] 28.0 mg/dL Critically high 7.0-18.0 [facility] Comment on above: Performed By: #### H STROPN, BNP, CMP ####[facility] Olwkeosczf[address] [place] [address]Dr. Abiel Clement Urea nitrogen/Creatinine [Mass ratio] 27.7 mg/mg Normal [facility] Comment on above: Performed By: #### H STROPN, BNP, CMP ####[facility] [address] [place], [place] [address]Dr. Abiel Urbano TROPONIN, HIGH SENSITIVITYon 03-14-2022 HSTROP 13.7 pg/mL Normal 4.0-51.3 [facility] Comment on above: Result Comment: CUT- OFF POINTS HAVE BEEN ESTABLISHED BASED ON THE FOURTH UNIVERSAL DEFINITIONS OF MYOCARDIALINFARCTION. THE UPPER REFERENCE LIMIT (URL) OF TROPONIN, DEFINED THE 99TH PERCENTILE OFcTnI DISTRIBUTION IN A REFERENCE POPULATION, HAS BEEN CONFIRMED THE DECISION THRESHOLDFOR [place] DIAGNOSIS. Performed By: #### H STROPN, BNP, CMP ####[facility] [address] [place], [place] [address]Dr. Abiel Clement BNPon 03-13-2022 Natriuretic peptide B (Bld) [Mass/Vol] 1791.0 pg/mL Critically high <=900.0 [facility] Comment on above: Performed By: #### C MP, BNP ####[facility] [address] [place], [place] [address]Dr. Suyapaviviana Clement Natriuretic peptide B (Bld) [Mass/Vol] 698.0 pg/mL Normal <=900.0 [facility] Comment on above: Performed By: #### B FUR PULLER, CMP ####[facility] Zttxeclznl[address] [place], [place] [address]Dr. Suyapaviviana Clement CBC AUTO DIFFon 03-13-2022 BASO # 0.0 103/ul Normal 0.0-0.1 [facility] Comment on above: Performed By: #### C BC ####[facility] Hdfjjsrsli[address] [place], [place] [address]Dr. Abiel Clement Basophils/100 WBC (Bld) 0.2 % Normal 0.2-2.0 [facility] Comment on above: Performed By: #### C BC ####[facility] Vwkxvgcxmc42[address] [place] [id number]. Abiel Clement EO # 0.0 103/ul Normal 0.0-0.7 [facility] [place] [facility] Comment on above: Performed By: #### C BC ####[facility] Hsmzzjttbc5399 [place] [id number]. Abiel Clement Eosinophils/100 WBC (Bld) 0.0 % Critically low 0.9-7.0 [facility] [place] [facility] Comment on above: Performed By: #### C BC ####[facility] Upukfuxuds[address] [place] [address]Dr. Suyapaviviana Clement Erythrocyte distribution width (RBC) [Ratio] 13.3 % Normal 11.0-15.0 [facility] [place] [facility] Comment on above: Performed By: #### C BC ####[facility] Wbfblelkmq4933[address] [place], [place] [address]Dr. Suyapaviviana Clement Hematocrit (Bld) [Volume fraction] 33.4 % Critically low 36.0-48.0 [facility] [place] [facility] Comment on above: Performed By: #### C BC ####[facility] Vxjuytxrkx[address] [place], [place] [address]Dr. Abiel Clement Hemoglobin (Bld) [Mass/Vol] 10.6 g/dL Critically low 12.0-16.0 [facility] [place] [facility] Comment on above: Performed By: #### C BC ####[facility] Rhbphpxgkt185[address] [place], [place] [address]Dr. Abiel Clement IG # 0.13 10e3/ul Critically high 0.00-0.03 [facility] Comment on above: Performed By: #### C BC ####[facility] Qqmlnblrsb417[address] [place], [place] [address]Dr. Abiel Clement IG % 0.8 % Critically high 0.0-0.5 [facility] Comment on above: Performed By: #### C BC ####[facility] Utayxcycps427[address] [place], [place] [address]DrKasia Clement LYMPH # 1.0 103/ul Critically low 1.2-3.8 [facility] Comment on above: Performed By: #### C BC ####[facility] Jpcrmtjkgz12[address] [place] [address]DrKasia Clement Lymphocytes/100 WBC (Bld) 6.0 % Critically low 20.5-60.0 [facility] [place] [facility] Comment on above: Performed By: #### C BC ####[facility] Jqeriosvph[address] [place] [address]DrKasia Clement MANUAL DIFF REQ NO Normal [facility] Comment on above: Performed By: #### C BC ####[facility] Hqgohdizeh59[address] [place] [address]DrKasia Clement MCH (RBC) [Entitic mass] 30.0 pg Normal 26.7-34.0 [facility] [place] [facility] Comment on above: Performed By: #### C BC ####[facility] Dfruicdpii205[address] [place], [place] [address]Dr. Abiel Clement MCHC (RBC) [Mass/Vol] 31.7 g/dL Normal 29.9-35.2 [facility] Comment on above: Performed By: #### C BC ####[facility] Pdgqhywbhs57[address] [place], [place] [address]DrKasia Clement MCV (RBC) [Entitic vol] 94.6 fL Normal 81.0-99.0 [facility] Comment on above: Performed By: #### C BC ####[facility] Wvnwlszbtp88[address] [place], [place] [address]DrKasia Clement MONO # 1.4 103/ul Critically high 0.3-0.8 [facility] Comment on above: Performed By: #### C BC ####[facility] Jvkzlbdyco3975[address] [place], [place] [address]DrKasia Clement Monocytes/100 WBC (Bld) 8.9 % Normal 1.7-12.0 [facility] Comment on above: Performed By: #### C BC ####[facility] Clldscbqwp388[address] [place], [place] [address]DrKasia Clement NEUT # 13.3 103/ul Critically high 1.4-6.5 [facility] Comment on above: Performed By: #### C BC ####[facility] Afgoiiolhp[address] [place] [address]Dr. Abiel Clement Neutrophils/100 WBC (Bld) 84.1 % Critically high 43.0-75.0 [facility] Comment on above: Performed By: #### C BC ####[facility] Snssrczuol[address] [place] [address]Dr. Abiel Urbano Platelet mean volume (Bld) [Entitic vol] 10.8 fL Normal 9.5-13.5 [facility] Comment on above: Performed By: #### C BC ####[facility] Ydjyrdgsmr58[address] [place], [place] [address]Dr. Abiel Urbano PLT 243 103/ul Normal 150-450 [facility] Comment on above: Performed By: #### C BC ####[facility] Ivedrgtmde5920[address] [place], [place] [address]Dr. Abiel Urbano RBC 3.53 106/ul Critically low 4.20-5.40 [facility] Comment on above: Performed By: #### C BC ####[facility] Pqvsbavyjs117[address] [place], [place] [address]Dr. Abiel Urbano WBC 15.9 103/ul Critically high 4.0-11.0 [facility] Comment on above: Performed By: #### C BC ####[facility] Liqmonmcmg886[address] [place], [place] [address]Dr. Abiel Clement CBC W MANUAL DIFFon 03-13-20 22 ATYPICAL LYMPH # Normal [facility] Comment on above: Performed By: #### C BCMAN ####[facility] Txuchgrhlu[address] [place], [place] [address]Dr. Abiel Clement ATYPICAL LYMPH % Normal [facility] Comment on above: Performed By: #### C BCMAN ####[facility] Bdcrtkniel[address] [place], [place] [address]Dr. Abiel Clement BAND # 0.8 103/ul Critically high 0.0-0.3 [facility] Comment on above: Performed By: #### C BCALLY ####[facility] Pmxzwaskuo9357 [place] [id number]. Abiel Clement BAND % 6 % Critically high 0-5 [facility] Comment on above: Performed By: #### C BCMAN ####[facility] Yfuwzvlots5319 [place], [place] [address]Oc. Abiel Clement BASOM # 0.00 103/ul Normal 0.00-0.10 [facility] Comment on above: Performed By: #### C BCMAN ####[facility] Uonfwjojnh2657 [place] [phone]. Yiviviana Clement BASOM % 0.0 % Critically low 0.2-2.0 [facility] [place] [facility] Comment on above: Performed By: #### C ALVINO ####[facility] Qyhsbftwgt9034 [place] [phone]. Yiviviana Clement BLAST # Normal [facility] [place] [facility] Comment on above: Performed By: #### C BCALLY ####[facility] Jautvwhwul[address] [place] [address]Dr. Yiviviana Clement BLAST % Normal [facility] Comment on above: Performed By: #### C BCALLY ####[facility] Edryrgmyig[address] [place] [address]Dr. Abiel Clement CORRECTED WBC Normal 4.0-11.0 [facility] Comment on above: Performed By: #### C BCALLY ####[facility] Wbcvwueknr4973 [place] [phone]. Yiviviana Clement EOS # 0.00 103/ul Normal 0.00-0.70 [facility] Comment on above: Performed By: #### C BCALLY ####[facility] Roazvgwesf75[address] [place] [address]Dr. Yiviviana Clement EOS% 0.0 % Critically low 0.9-7.0 [facility] [place] [facility] Comment on above: Performed By: #### C BCALLY ####[facility] Rjdewgkvan4528 [place] [phone]. Yilan Clement HCT 38.5 % Normal 36.0-48.0 [facility] Comment on above: Performed By: #### C ALVINO ####[facility] Pjxgemxsjy4465 [place] [phone]. Abiel Clement HGB 12.5 g/dl Normal 12.0-16.0 [facility] [place] [facility] Comment on above: Performed By: #### C ALVINO ####[facility] Mepbeycwdo9[address] [place] [phone]. Abiel Clement LYMPHM # 0.13 103/ul Critically low 1.20-3.80 [facility] Comment on above: Performed By: #### C ALVINO ####[facility] Vwrlffqtuu2353 [place] [phone]. Abiel Clement LYMPHM% 1.0 % Critically low 20.5-60.0 [facility] Comment on above: Performed By: #### C ALVINO ####[facility] Twfpppqvjr2798 [place] [phone]. Abiel Clement MCH 29.3 pg Normal 26.7-34.0 [facility] [place] [facility] Comment on above: Performed By: #### C ALVINO ####[facility] Dwrhugpbif0276 [place] [phone]. Abiel Clement MCHC 32.5 g/dl Normal 29.9-35.2 [facility] Comment on above: Performed By: #### C ALVINO ####[facility] Ounzxiyduh97[address] [place] [phone]. Abiel Clement MCV 90.4 fL Normal 81.0-99.0 [facility] Comment on above: Performed By: #### C ALVINO ####[facility] Fjwbgrgwhf4734 [place] [phone]. Abiel Clement METAMYELOCYTE # Normal [facility] Comment on above: Performed By: #### C ALVINO ####[facility] Opeabqjqkp8780 [place] [phone]. Abiel Clement METAMYELOCYTE % Normal [facility] Comment on above: Performed By: #### Sheila DE OLIVEIRA ####[facility] Ijzqzxwboi19[address] [place] [phone]. Abiel Clement MONOM# 0.13 103/ul Critically low 0.30-0.80 [facility] Comment on above: Performed By: #### C ALVINO ####[facility] Gehipytvex0496 [place] [phone]. Abiel Clement MONOM% 1.0 % Critically low 1.7-12.0 [facility] Comment on above: Performed By: #### C ALVINO ####[facility] Wxhrjbqpqi67[address] [place] [address]Dr. Abiel Clement MPV 10.6 fL Normal 9.5-13.5 [facility] Comment on above: Performed By: #### C ALVINO ####[facility] R[address]njmdh[address] [place], [place] [address]Dr. Abiel Clement MYELOCYTE # Normal [facility] Comment on above: Performed By: #### C AVLINO ####[facility] Kdjnvzednz[address] [place], [place] [address]Dr. Abiel Clement MYELOCYTE % Normal [facility] Comment on above: Performed By: #### C ALVINO ####[facility] Nyqnbniykp58[address] [place] [address]Dr. Abiel Clement NRBC Normal [facility] Comment on above: Performed By: #### C ALVINO ####[facility] Gpebcghggf6997 [place] [address]Dr. Abiel Clement PLT 307 103/ul Normal 150-450 [facility] Comment on above: Result Comment: Plat elet clumps noted on diff. Automated Platelet count may be falsely decreased Performed By: #### C ALVINO ####[facility] Rhvwnqoadf9563 [place] [phone]. Abiel Clement RBC 4.26 106/ul Normal 4.20-5.40 [facility] Comment on above: Performed By: #### C ALVINO ####[facility] Yzvvwixnxq7047 [place] [address]Dr. Abiel Clement RDW 13.3 % Normal 11.0-15.0 [facility] Comment on above: Performed By: #### C BCMAN ####[facility] Gvmjdrtezl2400 [place], [place] [address]Al. Abiel Clement SEG # 11.68 103/ul Critically high 1.40-6.50 [facility] Comment on above: Performed By: #### C BCMAN ####[facility] Hryrhrlhcf5531 [place], [place] [address]Ph. Abiel Clement SEG % 92.0 % Critically high 43.0-75.0 [facility] Comment on above: Performed By: #### C BCMAN ####[facility] Jfcnaeqjpm3375 [place], [place] [address]As. Abiel Clement WBC 12.7 103/ul Critically high 4.0-11.0 [facility] Comment on above: Performed By: #### C BCMAN ####[facility] Bwsfoxubqk8568 [place] [phone]. Abiel Clement CTA CHEST WO W CONon 022 CTA CHEST WO W CON Normal [facility] CULTURE BLOODon 03-13-2022 Microscopic examination of blood, culture Culture Observations: NO GROWTH AT 5 DAYS. Normal [facility] Comment on above: Performed By: #### B LDCX2 ####[facility] Hfkmbqhgsq4661 [place] [phone]. Abiel Clement Microscopic examination of blood, culture Culture Observations: NO GROWTH AT 5 DAYS. Normal [facility] [place] [facility] Comment on above: Performed By: #### B LDCX1 ####[facility] Jfeyquamro8472 [place] [phone]. Abiel Clement Covid-19 PCR (CVDTB)on SARS-CoV-2 (COVID-19) RNA CLARIBEL+probe Ql (Unsp spec) Not detected Normal NOT DETECTED [facility] Comment on above: Result Comment: [...] for this test is supported by the [place] of [employer] and Human Service's declaration that [...] be used). Performed By: #### C VDTBH ####[facility] Cdwcbwcuyx[address] [place], [place] [address]Dr. Abiel Clement D-DIMERon 03-13-2022 D-DIMER 2.68 mg/L FEU Critically high <=0.59 [facility] Comment on above: Performed By: #### D DIM ####[facility] Wlcpleahjm06[address] [place], [place] [address]Dr. Abiel Clement D-DIMER COMMENTS SEE BELOW Normal [facility] Comment on above: Result Comment: Incr [...] generalized hospitalization. Performed By: #### D DIM ####[facility] Hnkfezbbcx8[address] [place], [place] [address]Dr. Abiel Clement LACTATE/LACTIC ACIDon 2021 Lactate [Moles/Vol] 1.6 mmol/L Normal 0.4-1.9 [facility] Comment on above: Performed By: #### L ACT ####[facility] Qjoeaigmco[address] [place], [place] [address]Dr. Abiel Clement Lactate [Moles/Vol] 2.0 mmol/L Critically high 0.4-1.9 [facility] [place] [facility] Comment on above: Performed By: #### L ACT ####[facility] Cmgaapchxh5322 [place] [phone]. Abiel Clement POINT OF CARE GLUCOSEon Glucose [Mass/Vol] 359 mg/dL Critically high -106 [facility] Comment on above: Performed By: #### P OCGLUC ####[facility] Vzysbubmez7[address] [place] [address]Dr. Abiel Clement Glucose [Mass/Vol] 428 mg/dL Critically high 74-106 [facility] Comment on above: Performed By: #### P OCGLUC ####[facility] Taxsaiihaz[address] [place] [address]Dr. Abiel Clement Glucose [Mass/Vol] 461 mg/dL Critically high -106 [facility] Comment on above: Performed By: #### P OCGLUC ####[facility] Tdjpnfzcdk66[address] [place], [place] [address]Dr. Abiel Clement Glucose [Mass/Vol] 494 mg/dL Critically high 74-106 [facility] Comment on above: Performed By: #### P OCGLUC ####[facility] Aiugoluzpq25[address] [place], [place] [address]Dr. Abiel Clement PROF 14(COMP METB)on 022 Albumin [Mass/Vol] 2.4 g/dL Critically low 3.4-5.0 [facility] Comment on above: Performed By: #### C MP, BNP ####[facility] Vfcpvsbgip4530 [place] [address]Dr. Abiel Clement Albumin/Globulin [Mass ratio] 0.6 {ratio} Normal [facility] [place] [facility] Comment on above: Performed By: #### C MP, BNP ####[facility] Snucutbzli9461 [place] [address]Dr. Abiel Clement ALP [Catalytic activity/Vol] 128 U/L Critically high 46-116 [facility] [place] [facility] Comment on above: Performed By: #### C MP, BNP ####[facility] Nvfgiphoyh8432 [place] [address]Dr. Abiel Clement ALT [Catalytic activity/Vol] 17 U/L Normal 14-59 [facility] [place] [facility] Comment on above: Performed By: #### C MP, BNP ####[facility] Ovegzpiqzy017[address] [place], [place] [address]Dr. Suyapaviviana Urbano Anion gap [Moles/Vol] 13.9 mmol/L Normal [facility] Comment on above: Performed By: #### C MP, BNP ####[facility] Teynswutti[address] [place], [place] [address]Dr. Suyapaviviana Urbano AST [Catalytic activity/Vol] 26 U/L Normal 15-37 [facility] [place] [facility] Comment on above: Performed By: #### C MP, BNP ####[facility] Jiofpvfnlx400[address] [place], [place] [address]Dr. Abiel Clement Bilirubin [Mass/Vol] 0.5 mg/dL Normal 0.2-1.0 [facility] [place] [facility] Comment on above: Performed By: #### C MP, BNP ####[facility] Xbjntvvcyu016[address] [place], [place] [address]Dr. Abiel Clement Calcium [Mass/Vol] 8.3 mg/dL Critically low 8.5-10.1 [facility] Comment on above: Performed By: #### C MP, BNP ####[facility] Qpshojkcrf47[address] [place], [place] [address]Dr. Abiel Clement Chloride [Moles/Vol] 99 mmol/L Normal 98-107 [facility] [place] [facility] Comment on above: Performed By: #### C MP, BNP ####[facility] Jsxgeaesnm9210[address] [place], [place] [address]Dr. Abiel Clement CO2 [Moles/Vol] 23.4 mmol/L Normal 21.0-32.0 [facility] Comment on above: Performed By: #### C MP, BNP ####[facility] Mztaqcslnf[address] [place], [place] [address]Dr. Abiel Clement Creatinine [Mass/Vol] 1.19 mg/dL Critically high 0.55-1.02 [facility] [place] [facility] Comment on above: Performed By: #### C MP, BNP ####[facility] Zcvbcernwb[address] [place], [place] [address]Dr. Abiel Clement EGFR-AF HAITIAN 56 mL/min/1.73m2 Critically low >=60 [facility] [place] [facility] Comment on above: Performed By: #### C MP, BNP ####[facility] Vopvvxihhu97[address] [place], [place] [address]Dr. Abiel Clement EGFR-NON AF HAITIAN 46 mL/min/1.73m2 Critically low >=60 [facility] [place] [facility] Comment on above: Performed By: #### C MP, BNP ####[facility] Jccyyjihre38[address] [place], [place] [address]Dr. Abiel Clement Globulin (S) [Mass/Vol] 3.7 g/dL Normal [facility] [place] [facility] Comment on above: Performed By: #### C MP, BNP ####[facility] Gmdcikunik437[address] [place], [place] [address]Dr. Abiel Clement Glucose [Mass/Vol] 447 mg/dL Critically high 74-106 [facility] Comment on above: Performed By: #### C MP, BNP ####[facility] Bvwwbpvbnf74[address] [place], [place] [address]Dr. Abiel Clement Potassium [Moles/Vol] 5.3 mmol/L Critically high 3.5-5.1 [facility] [place] [facility] Comment on above: Performed By: #### C MP, BNP ####[facility] Gcpcntrtmx[address] [place], [place] [address]Dr. Abeil Clement Protein [Mass/Vol] 6.1 g/dL Critically low 6.4-8.2 [facility] Comment on above: Performed By: #### C MP, BNP ####[facility] Cvwtcommys208[address] [place], [place] [address]Dr. Abiel Clement Sodium [Moles/Vol] 131 mmol/L Critically low 136-145 [facility] Comment on above: Performed By: #### C MP, BNP ####[facility] Jsbjdutpkb10[address] [place], [place] [address]Dr. Abiel Clement Urea nitrogen [Mass/Vol] 36.0 mg/dL Critically high 7.0-18.0 [facility] [place] [facility] Comment on above: Performed By: #### C MP, BNP ####[facility] Gvghtjosia7[address] [place] [id number]. Abiel Clement Urea nitrogen/Creatinine [Mass ratio] 30.3 mg/mg Normal [facility] [place] [facility] Comment on above: Performed By: #### C MP, BNP ####[facility] Zcwjuzheoc3541 [place] [phone]. Abiel Clement Albumin [Mass/Vol] 3.1 g/dL Critically low 3.4-5.0 [facility] Comment on above: Performed By: #### B FUR PULLER, CMP ####[facility] Azrriacqzh47[address] [place] [address]Dr. Abiel Clement Albumin/Globulin [Mass ratio] 0.7 {ratio} Normal [facility] [place] [facility] Comment on above: Performed By: #### B FUR PULLER, CMP ####[facility] Flyocdpmor379[address] [place], [place] [address]Dr. Abiel Clement ALP [Catalytic activity/Vol] 161 U/L Critically high 46-116 [facility] [place] [facility] Comment on above: Performed By: #### B FUR PULLER, CMP ####[facility] Omwkvdvakb4421 [place] [id number]. Abiel Clement ALT [Catalytic activity/Vol] 22 U/L Normal 14-59 [facility] [place] [facility] Comment on above: Performed By: #### B FUR PULLER, CMP ####[facility] Qfuogwaucq6528 [place] [phone]. Suyapaviviana Urbano Anion gap [Moles/Vol] 13.5 mmol/L Normal [facility] Comment on above: Performed By: #### B FUR PULLER, CMP ####[facility] Fmezinvqte3330 [place] [phone]. Suyapaviviana Clement AST [Catalytic activity/Vol] 41 U/L Critically high 15-37 [facility] [place] [facility] Comment on above: Performed By: #### B FUR PULLER, CMP ####[facility] Lwcqxasqcr[address] [place], [place] [address]Dr. Abiel Clement Bilirubin [Mass/Vol] 0.5 mg/dL Normal 0.2-1.0 [facility] [place] [facility] Comment on above: Performed By: #### B FUR PULLER, CMP ####[facility] Ukkspvaame2201 [place] [phone]. Abiel Clement Calcium [Mass/Vol] 9.4 mg/dL Normal 8.5-10.1 [facility] Comment on above: Performed By: #### B FUR PULLER, CMP ####[facility] Zszfpuhged7368 [place] [address]Dr. Abiel Clement Chloride [Moles/Vol] 98 mmol/L Normal 98-107 [facility] Comment on above: Performed By: #### B FUR PULLER, CMP ####[facility] Odvxhvcntx9027 [place] [address]Dr. Abiel Clement CO2 [Moles/Vol] 27.0 mmol/L Normal 21.0-32.0 [facility] Comment on above: Performed By: #### B FUR PULLER, CMP ####[facility] Wnhinoyvqz477[address] [place], [place] [address]Dr. Abiel Clement Creatinine [Mass/Vol] 1.08 mg/dL Critically high 0.55-1.02 [facility] [place] [facility] Comment on above: Performed By: #### B FUR PULLER, CMP ####[facility] Ob[address]afjvzrg[address] [place], [place] [address]Dr. Abiel Clement EGFR-AF HAITIAN >60 Normal >=60 [facility] Comment on above: Performed By: #### B FUR PULLER, CMP ####[facility] Pttzthiyft057[address] [place], [place] [address]Dr. Abiel Clement EGFR-NON AF HAITIAN 51 mL/min/1.73m2 Critically low >=60 [facility] [place] [facility] Comment on above: Performed By: #### B FUR PULLER, CMP ####[facility] Yoltylabtj67[address] [place], [place] [address]Dr. Abiel Clement Globulin (S) [Mass/Vol] 4.2 g/dL Normal [facility] [place] [facility] Comment on above: Performed By: #### B FUR PULLER, CMP ####[facility] Iasjrrxvhv494[address] [place], [place] [address]Dr. Abiel Clement Glucose [Mass/Vol] 173 mg/dL Critically high 74-106 [facility] Comment on above: Performed By: #### B FUR PULLER, CMP ####[facility] Ucgrljrxlk2475 [place] [address]Dr. Abiel Clement Potassium [Moles/Vol] 4.5 mmol/L Normal 3.5-5.1 [facility] [place] [facility] Comment on above: Performed By: #### B FUR PULLER, CMP ####[facility] Gucrtzwlma[address] [place], [place] [address]Dr. Abiel Urbano Protein [Mass/Vol] 7.3 g/dL Normal 6.4-8.2 [facility] Comment on above: Performed By: #### B FUR PULLER, CMP ####[facility] Suzwyjvxne30[address] [place], [place] [address]Dr. Suyapaviviana Urbano Sodium [Moles/Vol] 134 mmol/L Critically low 136-145 [facility] Comment on above: Performed By: #### B FUR PULLER, CMP ####[facility] Okndyycroe8[address] [place], [place] [address]Dr. Abiel Clement Urea nitrogen [Mass/Vol] 37.0 mg/dL Critically high 7.0-18.0 [facility] [place] [facility] Comment on above: Performed By: #### B FUR PULLER, CMP ####[facility] Waspyorqgd385[address] [place], [place] [address]Dr. Suyapaviviana Urbano Urea nitrogen/Creatinine [Mass ratio] 34.3 mg/mg Normal [facility] [place] [facility] Comment on above: Performed By: #### B FUR PULLER, CMP ####[facility] [address]swaxspfpu[address] [place], [place] [address]Dr. Abiel Urbano XR ANKLE RT MIN 3 VIEWSon XR ANKLE RT MIN 3 VIEWS Normal [facility] XR CHEST 1 Von 03-13-2022 XR CHEST 1 V Normal [facility] XR FOOT RT MIN 3 VIEWSon XR FOOT RT MIN 3 VIEWS Normal [facility] [place] [facility] CBC AUTO DIFFon 03-12-2022 BASO # 0.1 103/ul Normal 0.0-0.1 [facility] [place] [facility] Comment on above: Performed By: #### C BC ####[facility] Qquvvspbsl[address] [place], [place] [address]Dr. Abiel Clement Basophils/100 WBC (Bld) 0.7 % Normal 0.2-2.0 [facility] Comment on above: Performed By: #### C BC ####[facility] Wacrspurwu[address] [place] [address]Dr. Abiel Clement EO # 0.2 103/ul Normal 0.0-0.7 [facility] Comment on above: Performed By: #### C BC ####[facility] [facility] [address] [place], [place] [address]Dr. Abiel Clement Eosinophils/100 WBC (Bld) 2.1 % Normal 0.9-7.0 [facility] Comment on above: Performed By: #### C BC ####[facility] Hdxgtkzuzg354[address] [place], [place] [address]Dr. Abiel Clement Erythrocyte distribution width (RBC) [Ratio] 13.1 % Normal 11.0-15.0 [facility] Comment on above: Performed By: #### C BC ####[facility] Uciddzdrwu34[address] [place], [place] [address]Dr. Abiel Clement Hematocrit (Bld) [Volume fraction] 33.9 % Critically low 36.0-48.0 [facility] Comment on above: Performed By: #### C BC ####[facility] Mpwcbrddan89[address] [place], [place] [address]Dr. Abiel Clement Hemoglobin (Bld) [Mass/Vol] 11.0 g/dL Critically low 12.0-16.0 [facility] Comment on above: Performed By: #### C BC ####[facility] Arvlcfsvbz85[address] [place], [place] [address]Dr. Abiel Clement IG # 0.04 10e3/ul Critically high 0.00-0.03 [facility] Comment on above: Performed By: #### C BC ####[facility] Bvegdrdzoo01[address] [place], [place] [address]Dr. Abiel Clement IG % 0.4 % Normal 0.0-0.5 [facility] Comment on above: Performed By: #### C BC ####[facility] Zektrzwasq[address] [place], [place] [id number]. Abiel Clement LYMPH # 2.0 103/ul Normal 1.2-3.8 [facility] Comment on above: Performed By: #### C BC ####[facility] [address]asgojaac[address] [place] [address]Dr. Suyapaviviana Clement Lymphocytes/100 WBC (Bld) 20.0 % Critically low 20.5-60.0 [facility] Comment on above: Performed By: #### C BC ####[facility] Ilfglnherb[address] [place] [address]Dr. Abiel Clement MANUAL DIFF REQ NO Normal [facility] Comment on above: Performed By: #### C BC ####[facility] Bkplcimzuu3408 [place] [address]Dr. Abiel Urbano MCH (RBC) [Entitic mass] 29.5 pg Normal 26.7-34.0 [facility] Comment on above: Performed By: #### C BC ####[facility] Tfpuonktpn143[address] [place], [place] [address]Dr. Abiel Urbano MCHC (RBC) [Mass/Vol] 32.4 g/dL Normal 29.9-35.2 [facility] Comment on above: Performed By: #### C BC ####[facility] Gurhgxruan[address] [place] [address]Dr. Abiel Clement MCV (RBC) [Entitic vol] 90.9 fL Normal 81.0-99.0 [facility] Comment on above: Performed By: #### C BC ####[facility] Vpbuadvntg[address] [place] [address]Dr. Abiel Clement MONO # 1.0 103/ul Critically high 0.3-0.8 [facility] Comment on above: Performed By: #### C BC ####[facility] Ecopxyjtni7[address] [place], [place] [address]Dr. Abiel Clement Monocytes/100 WBC (Bld) 10.3 % Normal 1.7-12.0 [facility] Comment on above: Performed By: #### C BC ####[facility] Qepdlrbjgs66[address] [place], [place] [address]Dr. Abiel Clement NEUT # 6.5 103/ul Normal 1.4-6.5 [facility] Comment on above: Performed By: #### C BC ####[facility] Fslfqbnqpn2686 [place] [address]Dr. Abiel Clement Neutrophils/100 WBC (Bld) 66.5 % Normal 43.0-75.0 [facility] Comment on above: Performed By: #### C BC ####[facility] Xagrxsqbpk20[address] [place] [address]Dr. Abiel Clement Platelet mean volume (Bld) [Entitic vol] 10.8 fL Normal 9.5-13.5 [facility] Comment on above: Performed By: #### C BC ####[facility] Dlevstjavr4746 [place] [address]Dr. Abiel Urbano PLT 278 103/ul Normal 150-450 [facility] Comment on above: Performed By: #### C BC ####[facility] Jjoawqojiv201[address] [place], [place] [address]Dr. Abiel Clement RBC 3.73 106/ul Critically low 4.20-5.40 [facility] Comment on above: Performed By: #### C BC ####[facility] Zoywkhskdp7[address] [place] [address]Dr. Abiel Clement WBC 9.7 103/ul Normal 4.0-11.0 [facility] Comment on above: Performed By: #### C BC ####[facility] Lpzgixuqyl0345 [place] [address]Dr. Suyapaviviana Clement PROF CHEM 8 (BAS METB)on Anion gap [Moles/Vol] 11.5 mmol/L Normal [facility] Comment on above: Performed By: #### B MP ####[facility] Kvzyuvwmxy3673 [place] [address]Dr. Abiel Urbano Calcium [Mass/Vol] 8.9 mg/dL Normal 8.5-10.1 [facility] Comment on above: Performed By: #### B MP ####[facility] Dkwyrlatpm5241 [place] [id number]. Abiel Clement Chloride [Moles/Vol] 102 mmol/L Normal 98-107 [facility] Comment on above: Performed By: #### B MP ####[facility] Cflvcnnzqf2437 [place] [address]Dr. Abiel Clement CO2 [Moles/Vol] 28.4 mmol/L Normal 21.0-32.0 [facility] Comment on above: Performed By: #### B MP ####[facility] Jnzbyahmhl2359 [place] [address]Dr. Abiel Clement Creatinine [Mass/Vol] 1.10 mg/dL Critically high 0.55-1.02 [facility] Comment on above: Performed By: #### B MP ####[facility] Hzelrywllc34[address] [place], [place] [address]Dr. Abiel Clement EGFR-AF HAITIAN >60 Normal >=60 [facility] Comment on above: Performed By: #### B MP ####[facility] Qyhfsykltm25[address] [place], [place] [address]Dr. Abiel Clement EGFR-NON AF HAITIAN 50 mL/min/1.73m2 Critically low >=60 [facility] Comment on above: Performed By: #### B MP ####[facility] Bqhhawwgmx4450[address] [place], [place] [address]Dr. Abiel Clement Glucose [Mass/Vol] 106 mg/dL Normal 74-106 [facility] Comment on above: Performed By: #### B MP ####[facility] Kqdowqaznq85[address] [place], [place] [address]Dr. Abiel Clement Potassium [Moles/Vol] 3.9 mmol/L Normal 3.5-5.1 [facility] Comment on above: Performed By: #### B MP ####[facility] Hllotijyyu6[address] [place], [place] [address]Dr. Abiel Clement Sodium [Moles/Vol] 138 mmol/L Normal 136-145 [facility] Comment on above: Performed By: #### B MP ####[facility] Akpxaafspf1299[address] [place], [place] [address]Dr. Abiel Clement Urea nitrogen [Mass/Vol] 38.0 mg/dL Critically high 7.0-18.0 [facility] Comment on above: Performed By: #### B MP ####[facility] Lzxofllepx5981 [place] [address]Dr. Abiel Clement Urea nitrogen/Creatinine [Mass ratio] 34.5 mg/mg Normal [facility] Comment on above: Performed By: #### B MP ####[facility] Notekbqscw4244 [place] [address]Dr. Abiel Clement XR FOOT LT MIN 3 VIEWSon XR FOOT LT MIN 3 VIEWS Normal [facility] POINT OF CARE GLUCOSEon Glucose [Mass/Vol] 389 mg/dL Critically high [facility]106 [facility] Comment on above: Performed By: #### P OCGLUC ####[facility] Tgzzdwulwo9846 [place] [address]Dr. Abiel Clement Glucose [Mass/Vol] 414 mg/dL Critically high [facility]106 [facility] Comment on above: Performed By: #### P OCGLUC ####[facility] Losizgidjw8352 [place] [address]Dr. Abiel Clement Glucose [Mass/Vol] 295 mg/dL Critically high [address] [place] [address] Comment on above: Performed By: #### P OCGLUC ####[facility] Niploalhch[address] [place], [place] [address]Dr. Abiel Clement Glucose [Mass/Vol] 323 mg/dL Critically high [facility]106 [facility] Comment on above: Performed By: #### P OCGLUC ####[facility] Aoutvegypg538[address] [place], [place] [address]Dr. Abiel Clement Covid-19 PCR ([facility])on SARS-CoV-2 (COVID-19) RNA CLARIBEL+probe Ql (Unsp spec) Not detected Normal NOT DETECTED [facility] Comment on above: Result Comment: [...] for this test is supported by the Head Cager of Health and Human Service's declaration that [...] longer be used). Performed By: #### [facility] ####[facility] Wenmoilkyv31[address] [place], [place] [address]Dr. Suyapaviviana Clement CBC AUTO DIFFon 03-01-2022 BASO # 0.1 103/ul Normal 0.0-0.1 [facility] Comment on above: Performed By: #### C BC ####[facility] Orhosagnki[address] [place], [place] [address]Dr. Suyapaviviana Clement Basophils/100 WBC (Bld) 0.7 % Normal 0.2-2.0 [facility] Comment on above: Performed By: #### C BC ####[facility] Gujdobkpsn[address] [place], [place] [address]Dr. Suyapaviviana Clement EO # 0.2 103/ul Normal 0.0-0.7 [facility] Comment on above: Performed By: #### C BC ####[facility] Jepbhgoudp838[address] [place], [place] [address]Dr. Suyapaviviana Clement Eosinophils/100 WBC (Bld) 2.6 % Normal 0.9-7.0 [facility] Comment on above: Performed By: #### C BC ####[facility] Psqkgzqfjb175[address] [place], [place] [address]Dr. Suyapaviviana Clement Erythrocyte distribution width (RBC) [Ratio] 13.2 % Normal 11.0-15.0 [facility] Comment on above: Performed By: #### C BC ####[facility] Gscfrqcamu28[address] [place] [address]Dr. Abiel Clement Hematocrit (Bld) [Volume fraction] 42.4 % Normal 36.0-48.0 [facility] Comment on above: Performed By: #### C BC ####[facility] Cgppwepkjq3705 [place] [address]Dr. Abiel Urbano Hemoglobin (Bld) [Mass/Vol] 13.9 g/dL Normal 12.0-16.0 [facility] Comment on above: Performed By: #### C BC ####[facility] Kkvnbwwwzk6042 [place] [address]Dr. Abiel Clement IG # 0.02 10e3/ul Normal 0.00-0.03 [facility] Comment on above: Performed By: #### C BC ####[facility] Bpxyodngey60[address] [place] [address]Dr. Abiel Clement IG % 0.3 % Normal 0.0-0.5 [facility] Comment on above: Performed By: #### C BC ####[facility] Kpjqyjsbsu8494 [place] [address]Dr. Suyapaviviana Clement LYMPH # 1.8 103/ul Normal 1.2-3.8 [facility] Comment on above: Performed By: #### C BC ####[facility] Odjagoxaux[address] [place], [place] [address]Dr. Abiel Clement Lymphocytes/100 WBC (Bld) 24.1 % Normal 20.5-60.0 [facility] Comment on above: Performed By: #### C BC ####[facility] Vvirtidjrv5182 [place] [address]Dr. Suyapaviviana Clement MANUAL DIFF REQ NO Normal [facility] Comment on above: Performed By: #### C BC ####[facility] Vcissnuxig1299[address] [place], [place] [address]Dr. Abiel Clement MCH (RBC) [Entitic mass] 29.4 pg Normal 26.7-34.0 [facility] Comment on above: Performed By: #### C BC ####[facility] Xssjcoggqa5240 [place] [id number]. Abiel Clement MCHC (RBC) [Mass/Vol] 32.8 g/dL Normal 29.9-35.2 [facility] Comment on above: Performed By: #### C BC ####[facility] Oucoqdphbq4432 [place] [id number]. Abiel Clement MCV (RBC) [Entitic vol] 89.8 fL Normal 81.0-99.0 [facility] Comment on above: Performed By: #### C BC ####[facility] Xhkmksskwb6644 [place] [address]Dr. Abiel Clement MONO # 0.7 103/ul Normal 0.3-0.8 [facility] Comment on above: Performed By: #### C BC ####[facility] Uyvblkvwfy194[address] [place], [place] [address]Dr. Abiel Urbano Monocytes/100 WBC (Bld) 9.2 % Normal 1.7-12.0 [facility] Comment on above: Performed By: #### C BC ####[facility] Bhspztqagb[address] [place], [place] [address]Dr. Abiel Clement NEUT # 4.6 103/ul Normal 1.4-6.5 [facility] Comment on above: Performed By: #### C BC ####[facility] Moyftputch88[address] [place], [place] [address]Dr. Abiel Clement Neutrophils/100 WBC (Bld) 63.1 % Normal 43.0-75.0 [facility] Comment on above: Performed By: #### C BC ####[facility] Xxbnsexdtz4512 [place] [id number]. Abiel Clement Platelet mean volume (Bld) [Entitic vol] 11.4 fL Normal 9.5-13.5 [facility] Comment on above: Performed By: #### C BC ####[facility] Gzdlzxdfun17[address] [place], [place] [address]Dr. Abiel Urbano PLT 309 103/ul Normal 150-450 [facility] Comment on above: Performed By: #### C BC ####[facility] Irodmgpekq9332 [place] [address]Dr. Suyapaviviana Urbano RBC 4.72 106/ul Normal 4.20-5.40 [facility] Comment on above: Performed By: #### C BC ####[facility] Eizgytskeo4089 [place] [address]Dr. Suyapaviviana Urbano WBC 7.3 103/ul Normal 4.0-11.0 [facility] Comment on above: Performed By: #### C BC ####[facility] Rtiefnajev39[address] [place], [place] [address]Dr. Abiel Clement PROF CHEM 8 (BAS METB)on Anion gap [Moles/Vol] 12.2 mmol/L Normal [facility] Comment on above: Performed By: #### B MP ####[facility] Zhdoglprnt9[address] [place], [place] [address]Dr. Abiel Clement Calcium [Mass/Vol] 9.2 mg/dL Normal 8.5-10.1 [facility] Comment on above: Performed By: #### B MP ####[facility] Wotalsdbhw8539[address] [place], [place] [address]Dr. Abiel Clement Chloride [Moles/Vol] 102 mmol/L Normal 98-107 [facility] Comment on above: Performed By: #### B MP ####[facility] Reuxouuksp[address]15[address] [place], [place] [address]Dr. Abiel Clement CO2 [Moles/Vol] 26.9 mmol/L Normal 21.0-32.0 [facility] Comment on above: Performed By: #### B MP ####[facility] Eulaozaopd[address] [place], [place] [address]Dr. Abiel Clement Creatinine [Mass/Vol] 0.99 mg/dL Normal 0.55-1.02 [facility] Comment on above: Performed By: #### B MP ####[facility] Bnezfvwfip35[address] [place], [place] [address]Dr. Abiel Clement EGFR-AF HAITIAN >=60 Normal >=60 [facility] Comment on above: Performed By: #### B MP ####[facility] Ezwakswdro1416 [place] [address]Dr. Abiel Clement EGFR-NON AF HAITIAN 57 mL/min/1.73m2 Critically low >=60 [facility] Comment on above: Performed By: #### B MP ####[facility] Mzjjbqhmlj3513 [place] [address]Dr. Abiel Clement Glucose [Mass/Vol] 103 mg/dL Normal 74-106 [facility] Comment on above: Performed By: #### B MP ####[facility] Mdlyvcobwa6016 [place] [address]Dr. Abiel Clement Potassium [Moles/Vol] 4.1 mmol/L Normal 3.5-5.1 [facility] Comment on above: Performed By: #### B MP ####[facility] Mhfxmuzuoz0028 [place] [address]Dr. Abiel Clement Sodium [Moles/Vol] 137 mmol/L Normal 136-145 [facility] Comment on above: Performed By: #### B MP ####[facility] Ozcmcmidyr6[address] [place], [place] [address]Dr. Abiel Clement Urea nitrogen [Mass/Vol] 27.0 mg/dL Critically high 7.0-18.0 [facility] Comment on above: Performed By: #### B MP ####[facility] Iebjjvuvld425[address] [place], [place] [address]Dr. Abiel Clement Urea nitrogen/Creatinine [Mass ratio] 27.3 mg/mg Normal [facility] Comment on above: Performed By: #### B MP ####[facility] Gwvloqxvub37[address] [place] [address]Dr. Abiel Clement PROTIMEon 03-01-2022 INR Coag (PPP) [Relative time] 0.97 {INR} Normal [facility] Comment on above: Performed By: #### P TT, PT ####[facility] Cnpezhkdhc[address] [place], [place] [address]Dr. Abiel Clement INR GUIDELINES SEE BELOW Normal [facility] Comment on above: Result Comment: GELY RED INR: 2.0 - 3.0 CONDITIONS NOT LISTED BELOW 2.5 - 3.5 FOR PROSTHETIC HEART VALVE REPLACEMENT 2.5 - 3.5 RECURRENT THROMBOSIS Performed By: #### P TT, PT ####[facility] Sddffcltnu0369 [place] [address]Dr. Suyapaviviana Urbano PT Coag (PPP) [Time] 10.5 s Normal 9.0-11.6 [facility] Comment on above: Performed By: #### P TT, PT ####[facility] Vowzdglerx1199 [place] [address]Dr. Abiel Clement PTTon 03-01-2022 aPTT Coag (Bld) [Time] 24.8 s Normal 22.3-36.2 [facility] Comment on above: Performed By: #### P TT, PT ####[facility] Xlmjemuskq424[address] [place], [place] [address]Dr. Abiel Clement US CAROTID ART BILon 022 US CAROTID ART VIC Normal [facility] XR FOOT VIC MIN 3 VIEWSon XR FOOT VIC MIN 3 VIEWS Normal [facility] AMYLASEon 11-03-2021 Amylase [Catalytic activity/Vol] 66 U/L Normal 31-110 [facility] Comment on above: Performed By: #### C BENNY PEDERSEN LIPA ####[facility] Tkqmgssrle[address] [place], [place] [address]Dr. Abiel Clement CBC AUTO DIFFon 11-03-2021 BASO # 0.1 103/ul Normal 0.0-0.1 [facility] Comment on above: Performed By: #### C BC ####[facility] Qghptouuhp025[address] [place], [place] [address]Dr. Abiel Clement Basophils/100 WBC (Bld) 1.1 % Normal 0.2-2.0 [facility] Comment on above: Performed By: #### C BC ####[facility] Nwmvbmvwod[address] [place], [place] [address]Dr. Abiel Clement EO # 0.1 103/ul Normal 0.0-0.7 [facility] Comment on above: Performed By: #### C BC ####[facility] Nhvxjalcvd990[address] [place], [place] [address]Dr. Abiel Clement Eosinophils/100 WBC (Bld) 2.5 % Normal 0.9-7.0 [facility] Comment on above: Performed By: #### C BC ####[facility] Qnmqczcmxn9286 [place] [address]Dr. Abiel Clement Erythrocyte distribution width (RBC) [Ratio] 14.6 % Normal 11.0-15.0 [facility] Comment on above: Performed By: #### C BC ####[facility] Twpwerrqua1522 [place] [address]Dr. Abiel Clement Hematocrit (Bld) [Volume fraction] 47.4 % Normal 36.0-48.0 [facility] Comment on above: Performed By: #### C BC ####[facility] Qfrtkamdft2042 [place] [address]Dr. Abiel Clement Hemoglobin (Bld) [Mass/Vol] 15.4 g/dL Normal 12.0-16.0 [facility] Comment on above: Performed By: #### C BC ####[facility] Bcyicwnszz1153 [place] [address]Dr. Abiel Clement IG # 0.01 10e3/ul Normal 0.00-0.03 [facility] Comment on above: Performed By: #### C BC ####[facility] Jqoaqvhhlu3553 [place] [address]Dr. Abiel Clement IG % 0.2 % Normal 0.0-0.5 [facility] Comment on above: Performed By: #### C BC ####[facility] Eixernirvb3143 [place] [address]Dr. Abiel Clement LYMPH # 1.6 103/ul Normal 1.2-3.8 [facility] Comment on above: Performed By: #### C BC ####[facility] Yeqgdibkar2569 [place] [address]Dr. Abiel Clement Lymphocytes/100 WBC (Bld) 27.3 % Normal 20.5-60.0 [facility] Comment on above: Performed By: #### C BC ####[facility] Knfiycpeox8039 [place] [address]Dr. Suyapaviviana Clement MANUAL DIFF REQ NO Normal [facility] Comment on above: Performed By: #### C BC ####[facility] Fjktgbqiuv0716 [place] [address]Dr. Abiel Clement MCH (RBC) [Entitic mass] 28.1 pg Normal 26.7-34.0 [facility] Comment on above: Performed By: #### C BC ####[facility] Sfpcxiiaul5057 [place] [address]Dr. Abiel Urbano MCHC (RBC) [Mass/Vol] 32.5 g/dL Normal 29.9-35.2 [facility] Comment on above: Performed By: #### C BC ####[facility] Foxesnsnjl87[address] [place], [place] [address]Dr. Suyapaviviana Clement MCV (RBC) [Entitic vol] 86.5 fL Normal 81.0-99.0 [facility] Comment on above: Performed By: #### C BC ####[facility] Itumvaggbm[address] [place], [place] [address]Dr. Abiel Urbano MONO # 0.5 103/ul Normal 0.3-0.8 [facility] Comment on above: Performed By: #### C BC ####[facility] Ynqkwwtash[address] [place], [place] [address]Dr. Abiel Clement Monocytes/100 WBC (Bld) 8.5 % Normal 1.7-12.0 [facility] Comment on above: Performed By: #### C BC ####[facility] Zegiwbfxsm5444 [place] [address]Dr. Abiel Clement NEUT # 3.4 103/ul Normal 1.4-6.5 [facility] Comment on above: Performed By: #### C BC ####[facility] Hkfexxayay[address] [place], [place] [address]Dr. Abiel Clement Neutrophils/100 WBC (Bld) 60.4 % Normal 43.0-75.0 [facility] Comment on above: Performed By: #### C BC ####[facility] Cwaqpzkrpp9838 [place] [address]Dr. Abiel Clement Platelet mean volume (Bld) [Entitic vol] 11.6 fL Normal 9.5-13.5 [facility] Comment on above: Performed By: #### C BC ####[facility] Wnjijevdef9105 [place] [address]Dr. Abiel Clement PLT 257 103/ul Normal 150-450 [facility] Comment on above: Performed By: #### C BC ####[facility] Uhyxgwroqb6492 [place] [address]Dr. Abiel Clement RBC 5.48 106/ul Critically high 4.20-5.40 [facility] Comment on above: Performed By: #### C BC ####[facility] Zfuktamyyx[address] [place], [place] [address]Dr. Abiel Clement WBC 5.7 103/ul Normal 4.0-11.0 [facility] Comment on above: Performed By: #### C BC ####[facility] Vbulplqcwa5972 [place] [address]Dr. Abiel Urbano LIPASEon 11-03-2021 Lipase [Catalytic activity/Vol] 32.0 U/L Normal 23.0-300.0 [facility] Comment on above: Performed By: #### C BENNY PEDERSEN LIPA ####[facility] Jppbmtozkr4779 [place] [address]Dr. Abiel Clement PROF 14(COMP METB)on 022 Albumin [Mass/Vol] 3.6 g/dL Normal 3.5-5.0 [facility] Comment on above: Performed By: #### C BENNY PEDERSEN, LIPA ####[facility] Lfvingilcf8332 [place] [address]Dr. Abiel Clement Albumin/Globulin [Mass ratio] 0.8 {ratio} Normal [facility] Comment on above: Performed By: #### C SLAVA BENNY, LIPA ####[facility] Dfrvyqqeaz2860 [place] [address]Dr. Abiel Clement ALP [Catalytic activity/Vol] 325 U/L Critically high 38-126 [facility] Comment on above: Performed By: #### C MP, BENNY, LIPA ####[facility] Xpkopwruhk7667 [place] [address]Dr. Abiel Clement ALT [Catalytic activity/Vol] 103 U/L Critically high 9-52 [facility] Comment on above: Performed By: #### C MP, BENNY, LIPA ####[facility] Zzlejkabxa4522 [place] [address]Dr. Abiel Clement Anion gap [Moles/Vol] 13.1 mmol/L Normal [facility] Comment on above: Performed By: #### C MP, BENNY, LIPA ####[facility] Wycpyzerxk1064 [place] [address]Dr. Abiel Clement AST [Catalytic activity/Vol] 78 U/L Critically high 14-36 [facility] Comment on above: Performed By: #### C MP, BENNY, LIPA ####[facility] Zwktrsewhv[address] [place], [place] [address]Dr. Abiel Clement Bilirubin [Mass/Vol] 0.4 mg/dL Normal 0.2-1.3 [facility] Comment on above: Performed By: #### C MP, BENNY, LIPA ####[facility] Fvbseooxjd[address] [place], [place] [address]Dr. Abiel Clement Calcium [Mass/Vol] 9.6 mg/dL Normal 8.4-10.2 [facility] Comment on above: Performed By: #### C MP, BENNY, LIPA ####[facility] Kmxommntzb0794 [place] [address]Dr. Abiel Clement Chloride [Moles/Vol] 102 mmol/L Normal 98-107 [facility] Comment on above: Performed By: #### C MP, BENNY, LIPA ####[facility] Irqsyfbynt[address] [place], [place] [address]Dr. Abiel Clement CO2 [Moles/Vol] 21.5 mmol/L Critically low 22.0-30.0 [facility] Comment on above: Performed By: #### C MP, BENNY, LIPA ####[facility] [address] [place], [place] [id number]. Abiel Clement Creatinine [Mass/Vol] 1.51 mg/dL Critically high 0.52-1.04 [facility] [place] [facility] Comment on above: Performed By: #### C MP, BENNY, LIPA ####[facility] [address] [place] [address]Dr. Abiel Clement EGFR-AF HAITIAN 42 mL/min/1.73m2 Critically low >=60 [facility] [place] [facility] Comment on above: Performed By: #### C MP, BENNY, LIPA ####[facility] [address] [place] [address]Dr. Abiel Clement EGFR-NON AF HAITIAN 35 mL/min/1.73m2 Critically low >=60 [facility] [place] [facility] Comment on above: Performed By: #### C MP, BENNY, LIPA ####[facility] [address] [place] [address]Dr. Abiel Urbano Globulin (S) [Mass/Vol] 4.5 g/dL Normal [facility] [place] [facility] Comment on above: Performed By: #### C MP, BENNY, LIPA ####[facility] [address] [place] [address]Dr. Abiel Clement Glucose [Mass/Vol] 167 mg/dL Critically high 74-106 [facility] Comment on above: Performed By: #### C MP, BENNY, LIPA ####[facility] [address] [place] [address]Dr. Abiel Clement Potassium [Moles/Vol] 4.6 mmol/L Normal 3.4-5.0 [facility] [place] [facility] Comment on above: Performed By: #### C MP, BENNY, LIPA ####[facility] [address] [place] [address]Dr. Abiel Clement Protein [Mass/Vol] 8.1 g/dL Normal 6.1-8.2 [facility] Comment on above: Performed By: #### C MP, BENNY, LIPA ####[facility] [address] [place], [place] [address]Dr. Abiel Clement Sodium [Moles/Vol] 132 mmol/L Critically low 137-145 Th e [facility] Comment on above: Performed By: #### C BENNY PEDERSEN LIPA ####[facility] [address] [place] [id number]. Abiel Clement Urea nitrogen [Mass/Vol] 35.0 mg/dL Critically high 7.0-17.0 [facility] [place] [facility] Comment on above: Performed By: #### C BENNY PEDERSEN LIPA ####[facility] [address] [place], [place] [address]Jc. Abiel Clement Urea nitrogen/Creatinine [Mass ratio] 23.2 mg/mg Normal [facility] [place] [facility] Comment on above: Performed By: #### C BENNY PEDERSEN LIPA ####[facility] [address] [place] [id number]. Abiel Clement XR ABD FLAT UP_PA Tl 11-03 XR ABD FLAT UP_PA CH Normal [facility] XR FOOT LT MIN 3 VIEWSon XR FOOT LT MIN 3 VIEWS Normal [facility] COMPREHENSIVE METABOLIC PANE Neftali 09-23-2021 Albumin [Mass/Vol] 4.1 g/dL Normal 3.6-5.1 [facility] Comment on above: Performed By: #### 1 023, 7600 #### [facility] [place] [address] Price Analyst: Christian Dove MD Albumin/Globulin [Mass ratio] 1.2 {ratio} Normal 1.0-2.5 [facility] Comment on above: Performed By: #### 1 0231, 7600 #### [facility] [place] [address] Price Analyst: Christian Dove MD ALP [Catalytic activity/Vol] 206 U/L High 37-153 [facility] Comment on above: Performed By: #### 1 023, 7600 #### [facility] [place] [address] Price Analyst: Christian Dove MD ALT [Catalytic activity/Vol] 32 U/L High 6-29 [facility] Comment on above: Result Comment: NO C OLLECTION DATE RECEIVED. WE HAVE USED THE DATE THE SPECIMEN WAS RECEIVED BY THIS LABORATORY THE COLLECTION DATE. IF THIS IS INCORRECT, PLEASE CONTACT CLIENT SERVICES. PHONE NUMBER: [phone] Performed By: #### 1 0231, 7600 #### [facility] of [address], [address] [place] [address] Price Analyst: Christian Dove MD AST [Catalytic activity/Vol] 28 U/L Normal 10-35 [facility] Comment on above: Performed By: #### 1 0231, 7600 #### [facility] [address], [address] [place] [address] Price Analyst: Christian Dove MD Bilirubin [Mass/Vol] 0.5 mg/dL Normal 0.2-1.2 [facility] Comment on above: Performed By: #### 1 023, 7600 #### [facility] [place] [address] Price Analyst: Christian Dove MD BUN/CREATININE RATIO NOT APPLICABLE Normal 6-22 [facility] Comment on above: Performed By: #### 1 0231, 7600 #### [facility] [place] [address] Price Analyst: Christian Dove MD Calcium [Mass/Vol] 9.6 mg/dL Normal 8.6-10.4 [facility] Comment on above: Performed By: #### 1 0231, 7600 #### [facility] [place] [address] Price Analyst: Christian Dove MD Chloride [Moles/Vol] 101 mmol/L Normal 98-110 [facility] Comment on above: Performed By: #### 1 0231, 7600 #### [facility] [place] [address] Price Analyst: Christian Dove MD CO2 [Moles/Vol] 27 mmol/L Normal 20-32 [facility] Comment on above: Performed By: #### 1 0231, 7600 #### [facility] [place] [address] Price Analyst: Christian Dove MD Creatinine [Mass/Vol] 0.88 mg/dL Normal 0.50-0.99 [facility] Comment on above: Result Comment: For patients >49 years of age, the reference limit for Creatinine is approximately 13% higher for people identified as -Tajik. Performed By: #### 1 230, 7600 #### [facility] [place] [address] Price Analyst: Christian Dove MD eGFR NON-AFR. HAITIAN 71 mL/min/1.73m2 Normal > OR = 60 [facility] Comment on above: Performed By: #### 1 230, 7599 #### [facility] [place] [address] Price Analyst: Christian Dove MD GFR/1.73 sq M.predicted among blacks MDRD (S/P/Bld) [Vol rate/Area] 82 mL/min/{1.73_m2} Normal > OR = 60 [facility] Comment on above: Performed By: #### 1 230, 7599 #### [facility] [place] [address] Price Analyst: Christian Dove MD Globulin (S) [Mass/Vol] 3.3 g/dL Normal 1.9-3.7 [facility] Comment on above: Performed By: #### 1 230, 7600 #### [facility] [place] [address] Price Analyst: Christian Dove MD Glucose [Mass/Vol] 269 mg/dL High 65-99 [facility] Comment on above: Result Comment: Fasting reference interval For someone without known diabetes, a glucose value >125 mg/dL indicates that they may have diabetes and this should be confirmed with a follow-up test. Performed By: #### 1 230, 7599 #### [facility] [place] [address] Price Analyst: Christian Dove MD Potassium [Moles/Vol] 4.3 mmol/L Normal 3.5-5.3 [facility] Comment on above: Performed By: #### 1 0231, 7600 #### [facility] of [place] [address] Price Analyst: Christian Dove MD Protein [Mass/Vol] 7.4 g/dL Normal 6.1-8.1 [facility] Comment on above: Performed By: #### 1 0231, 7600 #### [facility] of [address], [address] [place] [address] Price Analyst: Christian Dove MD Sodium [Moles/Vol] 135 mmol/L Normal 135-146 [facility] Comment on above: Performed By: #### 1 0231, 7600 #### [facility] [place] [address] Price Analyst: Christian Dove MD Urea nitrogen [Mass/Vol] 18 mg/dL Normal 7-25 [facility] Comment on above: Performed By: #### 1 0231, 7600 #### [facility] [place] [address] Price Analyst: Christian Dove MD LIPID PANEL, [facility] 09-05 Cholesterol [Mass/Vol] 123 mg/dL Normal <200 [facility] Comment on above: Performed By: #### 1 0231, 7600 #### [facility] of [place] [address] Price Analyst: Christian Dove MD Cholesterol in HDL [Mass/Vol] 36 mg/dL Low > OR = 50 [facility] Comment on above: Performed By: #### 1 0231, 7600 #### [facility] of [place] [address] Price Analyst: Christian Dove MD Cholesterol in LDL [Mass/Vol] [...] Ciro PENN et al. MARIA T. 2013;310(19): 7702-9544 ([email or web address]://[email or web address]) Performed By: #### 1 0231, 7600 #### [facility] [address], [address] [place] [address] Price Analyst: Christian Dove MD Cholesterol.total/Cho lesterol in HDL [Mass ratio] 3.4 {ratio} Normal <5.0 [facility] Comment on above: Performed By: #### 1 023, 7600 #### [facility] [address], [address] [place] [address] Price Analyst: Christian Dove MD NON HDL CHOLESTEROL 87 mg/dL (calc) Normal <130 [facility] Comment on above: Result Comment: For patients with diabetes plus 1 major ASCVD risk factor, treating to a non-HDL-C goal of <100 mg/dL (LDL-C of <70 mg/dL) is considered a therapeutic option. Performed By: #### 1 023, 7600 #### [facility] [address], [address] [place] [address] Price Analyst: Christian Dove MD Triglyceride [Mass/Vol] 134 mg/dL Normal <150 [facility] Comment on above: Performed By: #### 1 023, 7600 #### [facility] [address], [address] [place] [address] Price Analyst: Christian Dove MD COVID Quick Testingon 2020 Result Positive [facility] Other POC GLUCOSE LABon 07-14-2020 Glucose [Mass/Vol] 311 mg/dL High 70-100 [facility] Comment on above: Performed By: #### 8 7167 #### [facility] [address] [place] [address], [place] Glucose [Mass/Vol] 231 mg/dL High 70-100 [facility] Comment on above: Performed By: #### 8 5499 #### [facility] [address] [place] [address], [place] POC GLUCOSE LABon 07-13-2020 Glucose [Mass/Vol] 173 mg/dL High 70-100 [facility] Comment on above: Performed By: #### 8 5499 #### [facility] [address] [place] [address], [place] Glucose [Mass/Vol] 117 mg/dL High 70-100 [facility] Comment on above: Performed By: #### 3 1792 #### [facility] [address] [place] [address], [place] Glucose [Mass/Vol] 282 mg/dL High 70-100 [facility] Comment on above: Performed By: #### 8 5499 #### [facility] [address] [place] [address], [place] Glucose [Mass/Vol] 288 mg/dL High 70-100 [facility] Comment on above: Performed By: #### 8 5499 ####[facility] [place] [address], [place] POC GLUCOSE LABon 07-12-2020 Glucose [Mass/Vol] 281 mg/dL High 70-100 [facility] Comment on above: Performed By: #### 8 5499 ####[facility] [place] [address], [place] Glucose [Mass/Vol] 102 mg/dL High 70-100 [facility] Comment on above: Performed By: #### 8 5499 ####[facility] [place] [address], [place] Glucose [Mass/Vol] 213 mg/dL High 70-100 [facility] Comment on above: Performed By: #### 8 5499 ####[facility] [place] [address], [place] Glucose [Mass/Vol] 195 mg/dL High 70-100 [facility] Comment on above: Performed By: #### 3 1792 #### [facility] [address] [place] [address], [place] POC GLUCOSE LABon 07-11-2020 Glucose [Mass/Vol] 221 mg/dL High 70-100 [facility] Comment on above: Performed By: #### 8 5499 #### [facility] [address] [place] [address], [place] Glucose [Mass/Vol] 201 mg/dL High 70-100 [facility] Comment on above: Performed By: #### 0 0071, 98546 #### [facility] [address] [place] [address], [place] Glucose [Mass/Vol] 279 mg/dL High 70-100 [facility] Comment on above: Performed By: #### 8 5499 ####[facility] [place] [address], [place] Glucose [Mass/Vol] 214 mg/dL High 70-100 [facility] Comment on above: Performed By: #### 3 1792 #### [facility] [address] [place] [address], [place] POC GLUCOSE LABon 07-10-2020 Glucose [Mass/Vol] 207 mg/dL High 70-100 [facility] Comment on above: Performed By: #### 8 5499 #### [facility] [address] [place] [address], [place] Glucose [Mass/Vol] 119 mg/dL High 70-100 [facility] Comment on above: Performed By: #### 8 5499 #### [facility] [address] [place] [address], [place] Glucose [Mass/Vol] 282 mg/dL High 70-100 [facility] Comment on above: Performed By: #### 8 5499 #### [facility] [address] [place] [address], [place] Glucose [Mass/Vol] 212 mg/dL High 70-100 [facility] Comment on above: Performed By: #### 8 5499 #### [facility] [address] [place] [address], [place] POC GLUCOSE LABon 07-09-2020 Glucose [Mass/Vol] 134 mg/dL High 70-100 [facility] Comment on above: Performed By: #### 8 5499 ####[facility] [place] [address], [place] Glucose [Mass/Vol] 113 mg/dL High 70-100 [facility] Comment on above: Performed By: #### 8 5499 ####[facility] [place] [address], [place] Glucose [Mass/Vol] 158 mg/dL High 70-100 [facility] Comment on above: Performed By: #### 8 5499 ####[facility] [place] [address], [place] Glucose [Mass/Vol] 146 mg/dL High 70-100 The [facility] Comment on above: Performed By: #### 3 1792 #### [facility] [address] [place] [address], [place] BASIC METABOLIC PANELon 11-0 Calcium [Mass/Vol] 9.4 mg/dL Normal 8.6-10.3 [facility] [place] [facility] Comment on above: Order Comment: No: D o not add to previous draw Performed By: #### 0 0071, 07247 #### [facility] [address] [place] [address], [place] Chloride [Moles/Vol] 102 mmol/L Normal 98-[address] [facility] Comment on above: Order Comment: No: D o not add to previous draw Performed By: #### 0 0071, 93525 #### [facility] [address] [place] [address], [place] CO2 [Moles/Vol] 28 mmol/L Normal 21-31 [facility] Comment on above: Order Comment: No: D o not add to previous draw Performed By: #### 0 0071, 68191 #### [facility] [address] [place] [address], [place] Creatinine [Mass/Vol] 0.73 mg/dL Normal 0.60-1.[address] [facility] Comment on above: Order Comment: No: D o not add to previous draw Performed By: #### 0 0071, 35858 #### [facility] [address] [place] [address], [place] GFR/1.73 sq M predicted among blacks MDRD (S/P/Bld) [Vol rate/Area] mL/min/{1.73_m2} Normal >[address] [facility] Comment on above: Order Comment: No: D o not add to previous draw Performed By: #### 0 0071, 22264 #### [facility] [address] [place] [address], [place] GFR/1.73 sq M predicted among non-blacks MDRD (S/P/Bld) [Vol rate/Area] mL/min/{1.73_m2} Normal >[address] [facility] Comment on above: Order Comment: No: D o not add to previous draw Performed By: #### 0 0071, 13605 #### [facility] [address] [place] [address], [facility] Glucose [Mass/Vol] 162 mg/dL High 70-100 [facility] Comment on above: Order Comment: No: D o not add to previous draw Performed By: #### 0 0071, 01798 #### [facility] [address] [place] [address], [facility] Potassium [Moles/Vol] 3.8 mmol/L Normal 3.5-5.[address] [facility] Comment on above: Order Comment: No: D o not add to previous draw Performed By: #### 0 0071, 26706 #### [facility] [address] [place] [address], [facility] Sodium [Moles/Vol] 138 mmol/L Normal 136-145 [facility] Comment on above: Order Comment: No: D o not add to previous draw Performed By: #### 0 0071, 81245 #### [facility] [address] [place] [address], [facility] Urea nitrogen [Mass/Vol] 15 mg/dL Normal 7-[address] [facility] Comment on above: Order Comment: No: D o not add to previous draw Performed By: #### 0 0071, 57488 #### [facility] [address] [place] [address], [facility] CBC W/DIFFon 07-08-2020 ABS BASOPHILS 0.1 10*3/uL Normal 0.0-0.2 The [facility] Comment on above: Order Comment: No: D o not add to previous draw Performed By: #### 8 5499 #### [facility] [address] [place] [address], [facility] ABS IMM GRANS 0.0 10*3/uL Normal 0.0-0.2 The [facility] Comment on above: Order Comment: No: D o not add to previous draw Performed By: #### 8 5499 #### [facility] [address] [place] [address], [facility] ABS NEUTROPHILS 3.5 10*3/uL Normal 1.6-7.6 The [facility] Comment on above: Order Comment: No: D o not add to previous draw Performed By: #### 8 5499 #### [facility] [address] [place] [address], [facility] Basophils/100 WBC (Bld) 0.9 % Normal 0.0-1.[address] [facility] Comment on above: Order Comment: No: D o not add to previous draw Performed By: #### 8 5499 #### [facility] [address] [place] [address], [facility] Eosinophils (Bld) [#/Vol] 0.3 10*3/uL Normal 0.0-0.5 [facility] Comment on above: Order Comment: No: D o not add to previous draw Performed By: #### 8 5499 #### [facility] [address] [place] [address], [facility] Eosinophils/100 WBC (Bld) 3.9 % Normal 0.0-6.[address] [facility] Comment on above: Order Comment: No: D o not add to previous draw Performed By: #### 8 5499 #### [facility] [address] [place] [id number], [facility] Erythrocyte distribution width (RBC) [Ratio] 15.1 % High 11.5-15.[address] [facility] Comment on above: Order Comment: No: D o not add to previous draw Performed By: #### 8 5499 #### [facility] [address] [place] [address], [facility] Hematocrit (Bld) [Volume fraction] 41.0 % Normal 36.0-45.[address] [facility] Comment on above: Order Comment: No: D o not add to previous draw Performed By: #### 8 5499 #### [facility] [address] [place] [address], [facility] Hemoglobin (Bld) [Mass/Vol] 13.0 g/dL Normal 12.0-15.[address] [facility] Comment on above: Order Comment: No: D o not add to previous draw Performed By: #### 8 5499 #### [facility] [address] [place] [address], [facility] IMMATURE GRANS 0.5 % Normal 0.0-1.0 [facility] Comment on above: Order Comment: No: D o not add to previous draw Performed By: #### 8 5499 #### [facility] [address] [place] [address], [facility] Lymphocytes (Bld) [#/Vol] 1.8 10*3/uL Normal 1.2-4.[address] [facility] Comment on above: Order Comment: No: D o not add to previous draw Performed By: #### 8 5499 #### [facility] [address] [place] [place] [address], [facility] Lymphocytes/100 WBC (Bld) 28.2 % Normal 20.0-45.[address] [facility] Comment on above: Order Comment: No: D o not add to previous draw Performed By: #### 8 5499 #### [facility] [address] [place] [address], [facility] MCH (RBC) [Entitic mass] 28.6 pg Normal 27.0-33.[address] [facility] Comment on above: Order Comment: No: D o not add to previous draw Performed By: #### 8 5499 #### [facility] [address] [place] [id number], [facility] MCHC (RBC) [Mass/Vol] 31.7 g/dL Low 32.0-35.[address] [facility] Comment on above: Order Comment: No: D o not add to previous draw Performed By: #### 8 5499 #### [facility] [address] [place] [address], [facility] MCV (RBC) [Entitic vol] 90.3 fL Normal 82.0-98.[address] [facility] Comment on above: Order Comment: No: D o not add to previous draw Performed By: #### 8 5499 #### [facility] [address] [place] [address], [facility] Monocytes (Bld) [#/Vol] 0.7 10*3/uL Normal 0.1-1.[address] [facility] Comment on above: Order Comment: No: D o not add to previous draw Performed By: #### 8 5499 #### [facility] [address] [place] [address], [facility] MONOS 11.1 % Normal 5.0-12.[address] [facility] Comment on above: Order Comment: No: D o not add to previous draw Performed By: #### 8 5499 #### [facility] [address] [place] [id number], [facility] Neutrophils/100 WBC (Bld) 55.4 % Normal 40.0-72.[address] [facility] Comment on above: Order Comment: No: D o not add to previous draw Performed By: #### 8 5499 #### [facility] [address] [place] [id number], [facility] Nucleated RBC/100 WBC (Bld) [Ratio] 0 % Normal 0-[address] [facility] Comment on above: Order Comment: No: D o not add to previous draw Performed By: #### 8 5499 #### [facility] [address] [place] [address], [facility] PLAT CNT 230 10*3/uL Normal 150-400 The [facility] Comment on above: Order Comment: No: D o not add to previous draw Performed By: #### 8 5499 #### [facility] [address] [place] [id number], [place] RBC (Bld) [#/Vol] 4.54 10*6/uL Normal 3.80-5.00 [facility] Comment on above: Order Comment: No: D o not add to previous draw Performed By: #### 8 5499 #### [facility] [address] [place] [address], [place] WBC (Bld) [#/Vol] 6.38 10*3/uL Normal 4.00-10.60 The [facility] Comment on above: Order Comment: No: D o not add to previous draw Performed By: #### 8 5499 #### [facility] [address] [place] [address], [place] POC GLUCOSE LABon 07-08-2020 Glucose [Mass/Vol] 164 mg/dL High 70-100 [facility] Comment on above: Performed By: #### 8 5499 #### [facility] [address] [place] [address], [place] Glucose [Mass/Vol] 137 mg/dL High 70-100 [facility] Comment on above: Performed By: #### 8 5499 ####[facility] [place] [address], [place] Glucose [Mass/Vol] 247 mg/dL High 70-100 [facility] Comment on above: Performed By: #### 8 5499 ####[facility] [place] [address], [place] Glucose [Mass/Vol] 154 mg/dL High 70-100 [facility] Comment on above: Performed By: #### 8 5499 ####[facility] [place] [address], [place] Glucose [Mass/Vol] 158 mg/dL High 70-100 [facility] Comment on above: Performed By: #### 8 5499 #### [facility] [address] [place] [address], [place] POC GLUCOSE LABon 07-07-2020 Glucose [Mass/Vol] 144 mg/dL High 70-100 [facility] Comment on above: Performed By: #### 3 1792 #### [facility] [address] [place] [address], [place] Glucose [Mass/Vol] 184 mg/dL High 70-100 [facility] Comment on above: Performed By: #### 8 5499 ####[facility] [place] [address], [place] Glucose [Mass/Vol] 171 mg/dL High 70-100 [facility] Comment on above: Performed By: #### 8 5499 ####[facility] [place] [address], [place] Glucose [Mass/Vol] 98 mg/dL Normal 70-100 [facility] Comment on above: Performed By: #### 8 5499 #### [facility] [address] [place] [address], [place] POC GLUCOSE LABon 07-06-2020 Glucose [Mass/Vol] 220 mg/dL High 70-100 [facility] Comment on above: Performed By: #### 8 5499 ####[facility] [place] [address], [place] Glucose [Mass/Vol] 215 mg/dL High 70-100 [facility] Comment on above: Performed By: #### 8 5499 ####[facility] [place] [address], [place] Glucose [Mass/Vol] 288 mg/dL High 70-100 [facility] Comment on above: Performed By: #### 3 1792 #### [facility] [address] [place] [address], [place] POC GLUCOSE LABon 07-05-2020 Glucose [Mass/Vol] 111 mg/dL High 70-100 The [facility] Comment on above: Performed By: #### 8 5499 #### [facility] [address] [place] [address], [place] Glucose [Mass/Vol] 144 mg/dL High 70-100 [facility] Comment on above: Performed By: #### 8 [id number] #### [facility] [address] [place] [address], [place] Glucose [Mass/Vol] 151 mg/dL High 70-100 [facility] Comment on above: Performed By: #### 8 [id number] ####[facility] [place] [address], [place] Glucose [Mass/Vol] 157 mg/dL High 70-100 [facility] Comment on above: Performed By: #### 8 5499 ####[facility] [place] [address], [place] Glucose [Mass/Vol] 154 mg/dL High 70-100 [facility] Comment on above: Performed By: #### 8 5499 ####[facility] [place] [address], [place] BASIC METABOLIC PANELon 06-07 Calcium [Mass/Vol] 9.2 mg/dL Normal 8.6-10.3 [facility] Comment on above: Order Comment: No: D o not add to previous draw Performed By: #### 0 0071, [id number] #### [facility] [address] [place] [address], [place] Chloride [Moles/Vol] 101 mmol/L Normal 98-[address] [facility] Comment on above: Order Comment: No: D o not add to previous draw Performed By: #### 0 0071, 44830 #### [facility] [address] [place] [address], [place] CO2 [Moles/Vol] 26 mmol/L Normal 21-[address] [facility] Comment on above: Order Comment: No: D o not add to previous draw Performed By: #### 0 0071, 87314 #### [facility] [address] [place] [address], [place] Creatinine [Mass/Vol] 0.75 mg/dL Normal 0.60-1.[address] [facility] Comment on above: Order Comment: No: D o not add to previous draw Performed By: #### 0 0071, 84133 #### [facility] [address] [place] [address], [place] GFR/1.73 sq M predicted among blacks MDRD (S/P/Bld) [Vol rate/Area] mL/min/{1.73_m2} Normal >[address] [facility] Comment on above: Order Comment: No: D o not add to previous draw Performed By: #### 0 0071, 06986 #### [facility] [address] [place] [address], [place] GFR/1.73 sq M predicted among non-blacks MDRD (S/P/Bld) [Vol rate/Area] mL/min/{1.73_m2} Normal >[address] [facility] Comment on above: Order Comment: No: D o not add to previous draw Performed By: #### 0 0071, 14883 #### [facility] [address] [place] [address], [place] Glucose [Mass/Vol] 343 mg/dL High 70-100 [facility] Comment on above: Order Comment: No: D o not add to previous draw Performed By: #### 0 0071, 64573 #### [facility] [address] [place] [address], [place] Potassium [Moles/Vol] 3.6 mmol/L Normal 3.5-5.[address] [facility] Comment on above: Order Comment: No: D o not add to previous draw Performed By: #### 0 0071, 31891 #### [facility] [address] [place] [id number], [facility] Sodium [Moles/Vol] 137 mmol/L Normal 136-145 [facility] Comment on above: Order Comment: No: D o not add to previous draw Performed By: #### 0 0071, 71144 #### [facility] [address] [place] [id number], [facility] Urea nitrogen [Mass/Vol] 15 mg/dL Normal 7-[address] [facility] Comment on above: Order Comment: No: D o not add to previous draw Performed By: #### 0 0071, 78294 #### [facility] [address] [place] [id number], [facility] CBC W/DIFFon 07-04-2020 ABS BASOPHILS 0.0 10*3/uL Normal 0.0-0.2 [facility] Comment on above: Order Comment: No: D o not add to previous draw Performed By: #### 8 [id number] #### [facility] [address] [address], [facility] ABS IMM GRANS 0.0 10*3/uL Normal 0.0-0.2 [facility] Comment on above: Order Comment: No: D o not add to previous draw Performed By: #### 8 [id number] #### [facility] [address] [place] [id number], [facility] ABS NEUTROPHILS 4.0 10*3/uL Normal 1.6-7.6 The [facility] Comment on above: Order Comment: No: D o not add to previous draw Performed By: #### 8 5499 #### [facility] [address] [place] [id number], [facility] Basophils/100 WBC (Bld) 0.7 % Normal 0.0-1.[address] [facility] Comment on above: Order Comment: No: D o not add to previous draw Performed By: #### 8 5499 #### [facility] [address] [place] [address], [facility] Eosinophils (Bld) [#/Vol] 0.3 10*3/uL Normal 0.0-0.[address] [facility] Comment on above: Order Comment: No: D o not add to previous draw Performed By: #### 8 5499 #### [facility] [address] [place] [id number], [facility] Eosinophils/100 WBC (Bld) 4.7 % Normal 0.0-6.[address] [facility] Comment on above: Order Comment: No: D o not add to previous draw Performed By: #### 8 [id number] #### [facility] [address] [place] [address], [facility] Erythrocyte distribution width (RBC) [Ratio] 15.0 % Normal 11.5-15.[address] [facility] Comment on above: Order Comment: No: D o not add to previous draw Performed By: #### 8 [id number] #### [facility] [address] [place] [address], [facility] Hematocrit (Bld) [Volume fraction] 38.0 % Normal 36.0-45.[address] [facility] Comment on above: Order Comment: No: D o not add to previous draw Performed By: #### 8 [id number] #### [facility] [address] [place] [address], [facility] Hemoglobin (Bld) [Mass/Vol] 12.4 g/dL Normal 12.0-15.[address] [facility] Comment on above: Order Comment: No: D o not add to previous draw Performed By: #### 8 [id number] #### [facility] [address] [place] [address], [facility] IMMATURE GRANS 0.3 % Normal 0.0-1.0 [facility] Comment on above: Order Comment: No: D o not add to previous draw Performed By: #### 8 [id number] #### [facility] [address] [place] [address], [facility] Lymphocytes (Bld) [#/Vol] 1.1 10*3/uL Low 1.2-4.[address] [facility] Comment on above: Order Comment: No: D o not add to previous draw Performed By: #### 8 5499 #### [facility] [address] [place] [id number], [facility] Lymphocytes/100 WBC (Bld) 18.1 % Low 20.0-45.[address] [facility] Comment on above: Order Comment: No: D o not add to previous draw Performed By: #### 8 [id number] #### [facility] [address] [place] [address], [facility] MCH (RBC) [Entitic mass] 29.1 pg Normal 27.0-33.[address] [facility] Comment on above: Order Comment: No: D o not add to previous draw Performed By: #### 8 [id number] #### [facility] [address] [place] [id number], [facility] MCHC (RBC) [Mass/Vol] 32.6 g/dL Normal 32.0-35.[address] [facility] Comment on above: Order Comment: No: D o not add to previous draw Performed By: #### 8 5499 #### [facility] [address] [place] [address], [facility] MCV (RBC) [Entitic vol] 89.2 fL Normal 82.0-98.[address] [facility] Comment on above: Order Comment: No: D o not add to previous draw Performed By: #### 8 5499 #### [facility] [address] [place] [address], [facility] Monocytes (Bld) [#/Vol] 0.6 10*3/uL Normal 0.1-1.[address] [facility] Comment on above: Order Comment: No: D o not add to previous draw Performed By: #### 8 [id number] #### [facility] [address] [place] [id number], [facility] MONOS 9.6 % Normal 5.0-12.[address] [facility] Comment on above: Order Comment: No: D o not add to previous draw Performed By: #### 8 5499 #### [facility] [address] [place] [id number], [facility] Neutrophils/100 WBC (Bld) 66.6 % Normal 40.0-72.[address] [facility] Comment on above: Order Comment: No: D o not add to previous draw Performed By: #### 8 [id number] #### [facility] [address] [place] [address], [facility] Nucleated RBC/100 WBC (Bld) [Ratio] 0 % Normal 0-[address] [facility] Comment on above: Order Comment: No: D o not add to previous draw Performed By: #### 8 [id number] #### [facility] [address] [place] [id number], [facility] PLAT CNT 186 10*3/uL Normal 150-400 [facility] Comment on above: Order Comment: No: D o not add to previous draw Performed By: #### 8 5499 #### [facility] [address] [place] [id number], [facility] RBC (Bld) [#/Vol] 4.26 10*6/uL Normal 3.80-5.00 [facility] Comment on above: Order Comment: No: D o not add to previous draw Performed By: #### 8 [id number] #### [facility] [address] [place] [id number], [place] WBC (Bld) [#/Vol] 5.96 10*3/uL Normal 4.00-10.60 [facility] Comment on above: Order Comment: No: D o not add to previous draw Performed By: #### 8 5499 #### [facility] [address] [place] [address], [place] MAGNESIUM BLOODon 07-04-2020 Magnesium [Mass/Vol] 1.7 mg/dL Low 1.9-2.[address] [facility] Comment on above: Order Comment: No: D o not add to previous draw Performed By: #### 0 0071, 70027 #### [facility] [address] [place] [address], [place] POC GLUCOSE LABon 07-04-2020 Glucose [Mass/Vol] 143 mg/dL High 70-100 [facility] Comment on above: Performed By: #### 8 5499 #### [facility] [address] [place] [address], [place] Glucose [Mass/Vol] 226 mg/dL High 70-100 [facility] Comment on above: Performed By: #### 3 1792 #### [facility] [address] [place] [address], [place] Glucose [Mass/Vol] 340 mg/dL High 70-100 [facility] Comment on above: Performed By: #### 8 5499 #### [facility] [address] [place] [address], [place] BASIC METABOLIC PANELon 06-06 Calcium [Mass/Vol] 9.1 mg/dL Normal 8.6-10.3 [facility] Comment on above: Order Comment: No: D o not add to previous draw Performed By: #### 0 0071, 25789 #### [facility] [address] [place] [address], [place] Chloride [Moles/Vol] 104 mmol/L Normal 98-[address] [facility] Comment on above: Order Comment: No: D o not add to previous draw Performed By: #### 0 0071, 64073 #### [facility] [address] [place] [address], [place] CO2 [Moles/Vol] 27 mmol/L Normal 21-31 [facility] Comment on above: Order Comment: No: D o not add to previous draw Performed By: #### 0 0071, 08258 #### [facility] [address] [place] [address], [place] Creatinine [Mass/Vol] 0.69 mg/dL Normal 0.60-1.[address] [facility] Comment on above: Order Comment: No: D o not add to previous draw Performed By: #### 0 0071, 34595 #### [facility] [address] [place] [address], [place] GFR/1.73 sq M predicted among blacks MDRD (S/P/Bld) [Vol rate/Area] mL/min/{1.73_m2} Normal >60 [facility] Comment on above: Order Comment: No: D o not add to previous draw Performed By: #### 0 0071, 60909 #### [facility] [address] [place] [address], [place] GFR/1.73 sq M predicted among non-blacks MDRD (S/P/Bld) [Vol rate/Area] mL/min/{1.73_m2} Normal >[address] [facility] Comment on above: Order Comment: No: D o not add to previous draw Performed By: #### 0 0071, 02276 #### [facility] [address] [place] [address], [place] Glucose [Mass/Vol] 192 mg/dL High 70-100 [facility] Comment on above: Order Comment: No: D o not add to previous draw Performed By: #### 0 0071, 94356 #### [facility] [address] [place] [address], [place] Potassium [Moles/Vol] 3.2 mmol/L Low 3.5-5.[address] [facility] Comment on above: Order Comment: No: D o not add to previous draw Performed By: #### 0 0071, 23447 #### [facility] [address] [place] [address], [facility] Sodium [Moles/Vol] 139 mmol/L Normal 136-145 [facility] Comment on above: Order Comment: No: D o not add to previous draw Performed By: #### 0 0071, 84730 #### [facility] [address] [place] [address], [facility] Urea nitrogen [Mass/Vol] 13 mg/dL Normal 7-[address] [facility] Comment on above: Order Comment: No: D o not add to previous draw Performed By: #### 0 0071, 78303 #### [facility] [address] [place] [address], [facility] CBC W/DIFFon 07-03-2020 ABS BASOPHILS 0.1 10*3/uL Normal 0.0-0.2 [facility] Comment on above: Order Comment: No: D o not add to previous draw Performed By: #### 8 [id number] #### [facility] [address] [place] [address], [facility] ABS IMM GRANS 0.0 10*3/uL Normal 0.0-0.2 [facility] Comment on above: Order Comment: No: D o not add to previous draw Performed By: #### 8 5499 #### [facility] [address] [place] [id number], [facility] ABS NEUTROPHILS 3.7 10*3/uL Normal 1.6-7.6 The [facility] Comment on above: Order Comment: No: D o not add to previous draw Performed By: #### 8 5499 #### [facility] [address] [place] [id number], [facility] Basophils/100 WBC (Bld) 0.8 % Normal 0.0-1.[address] [facility] Comment on above: Order Comment: No: D o not add to previous draw Performed By: #### 8 5499 #### [facility] [address] [place] [address], [facility] Eosinophils (Bld) [#/Vol] 0.3 10*3/uL Normal 0.0-0.[address] [facility] Comment on above: Order Comment: No: D o not add to previous draw Performed By: #### 8 5499 #### [facility] [address] [place] [address], [facility] Eosinophils/100 WBC (Bld) 4.4 % Normal 0.0-6.[address] [facility] Comment on above: Order Comment: No: D o not add to previous draw Performed By: #### 8 5499 #### [facility] [address] [place] [address], [facility] Erythrocyte distribution width (RBC) [Ratio] 14.7 % Normal 11.5-15.[address] [facility] Comment on above: Order Comment: No: D o not add to previous draw Performed By: #### 8 [id number] #### [facility] [address] [place] [address], [facility] Hematocrit (Bld) [Volume fraction] 38.4 % Normal 36.0-45.[address] [facility] Comment on above: Order Comment: No: D o not add to previous draw Performed By: #### 8 5499 #### [facility] [address] [place] [address], [facility] Hemoglobin (Bld) [Mass/Vol] 12.2 g/dL Normal 12.0-15.[address] [facility] Comment on above: Order Comment: No: D o not add to previous draw Performed By: #### 8 5499 #### [facility] [address] [place] [address], [facility] IMMATURE GRANS 0.5 % Normal 0.0-1.0 [facility] Comment on above: Order Comment: No: D o not add to previous draw Performed By: #### 8 [id number] #### [facility] [address] [place] [address], [facility] Lymphocytes (Bld) [#/Vol] 1.3 10*3/uL Normal 1.2-4.[address] [facility] Comment on above: Order Comment: No: D o not add to previous draw Performed By: #### 8 5499 #### [facility] [address] [place] [address], [facility] Lymphocytes/100 WBC (Bld) 22.0 % Normal 20.0-45.[address] [facility] Comment on above: Order Comment: No: D o not add to previous draw Performed By: #### 8 [id number] #### [facility] [address] [place] [address], [facility] MCH (RBC) [Entitic mass] 28.6 pg Normal 27.0-33.[address] [facility] Comment on above: Order Comment: No: D o not add to previous draw Performed By: #### 8 [id number] #### [facility] [address] [address], [facility] MCHC (RBC) [Mass/Vol] 31.8 g/dL Low 32.0-35.[address] [facility] Comment on above: Order Comment: No: D o not add to previous draw Performed By: #### 8 5499 #### [facility] [address] [place] [address], [facility] MCV (RBC) [Entitic vol] 90.1 fL Normal 82.0-98.[address] [facility] Comment on above: Order Comment: No: D o not add to previous draw Performed By: #### 8 [id number] #### [facility] [address] [place] [id number], [facility] Monocytes (Bld) [#/Vol] 0.7 10*3/uL Normal 0.1-1.0 [facility] Comment on above: Order Comment: No: D o not add to previous draw Performed By: #### 8 [id number] #### [facility] [address] [place] [id number], [facility] MONOS 11.1 % Normal 5.0-12.[address] [facility] Comment on above: Order Comment: No: D o not add to previous draw Performed By: #### 8 5499 #### [facility] [address] [place] [address], [facility] Neutrophils/100 WBC (Bld) 61.2 % Normal 40.0-72.[address] [facility] Comment on above: Order Comment: No: D o not add to previous draw Performed By: #### 8 [id number] #### [facility] [address] [place] [address], [facility] Nucleated RBC/100 WBC (Bld) [Ratio] 0 % Normal 0-[address] [facility] Comment on above: Order Comment: No: D o not add to previous draw Performed By: #### 8 [id number] #### [facility] [address] [place] [address], [facility] PLAT CNT 193 10*3/uL Normal 150-400 [facility] Comment on above: Order Comment: No: D o not add to previous draw Performed By: #### 8 [id number] #### [facility] [address] [place] [id number], [facility] RBC (Bld) [#/Vol] 4.26 10*6/uL Normal 3.80-5.00 [facility] Comment on above: Order Comment: No: D o not add to previous draw Performed By: #### 8 [id number] #### [facility] [address] [place] [address], [place] WBC (Bld) [#/Vol] 5.96 10*3/uL Normal 4.00-10.60 [facility] Comment on above: Order Comment: No: D o not add to previous draw Performed By: #### 8 [id number] #### [facility] [address] [place] [address], [facility] POC GLUCOSE LABon 07-03-2020 Glucose [Mass/Vol] 161 mg/dL High 70-100 [facility] Comment on above: Performed By: #### 8 [id number] #### [facility] [address] [place] [address], [facility] BASIC METABOLIC PANELon 06-06 Calcium [Mass/Vol] 8.5 mg/dL Low 8.6-10.3 [facility] Comment on above: Order Comment: No: D o not add to previous draw Performed By: #### 0 0071, 68654 #### [facility] [address] [place] [address], [place] Chloride [Moles/Vol] 103 mmol/L Normal 98-[address] [facility] Comment on above: Order Comment: No: D o not add to previous draw Performed By: #### 0 0071, 65468 #### [facility] [address] [place] [address], [place] CO2 [Moles/Vol] 24 mmol/L Normal 21-[address] [facility] Comment on above: Order Comment: No: D o not add to previous draw Performed By: #### 0 0071, 75531 #### [facility] [address] [place] [address], [place] Creatinine [Mass/Vol] 0.76 mg/dL Normal 0.60-1.[address] [facility] Comment on above: Order Comment: No: D o not add to previous draw Performed By: #### 0 0071, 54272 #### [facility] [address] [place] [address], [place] GFR/1.73 sq M predicted among blacks MDRD (S/P/Bld) [Vol rate/Area] mL/min/{1.73_m2} Normal >[address] [facility] Comment on above: Order Comment: No: D o not add to previous draw Performed By: #### 0 0071, 68072 #### [facility] [address] [place] [address], [place] GFR/1.73 sq M predicted among non-blacks MDRD (S/P/Bld) [Vol rate/Area] mL/min/{1.73_m2} Normal >[address] [facility] Comment on above: Order Comment: No: D o not add to previous draw Performed By: #### 0 0071, 61931 #### [facility] [address] [place] [address], [place] Glucose [Mass/Vol] 224 mg/dL High 70-100 [facility] Comment on above: Order Comment: No: D o not add to previous draw Performed By: #### 0 0071, 82368 #### [facility] [address] [place] [address], [place] Potassium [Moles/Vol] 4.0 mmol/L Normal 3.5-5.[address] [facility] Comment on above: Order Comment: No: D o not add to previous draw Performed By: #### 0 0071, 88059 #### [facility] [address] [place] [address], [place] Sodium [Moles/Vol] 134 mmol/L Low 136-145 [facility] Comment on above: Order Comment: No: D o not add to previous draw Performed By: #### 0 0071, 87546 #### [facility] [address] [place] [address], [place] Urea nitrogen [Mass/Vol] 16 mg/dL Normal 7-[address] [facility] Comment on above: Order Comment: No: D o not add to previous draw Performed By: #### 0 0071, 74052 #### [facility] [address] CBC W/DIFFon 07-02-2020 ABS BASOPHILS 0.1 10*3/uL Normal 0.0-0.2 The [facility] Comment on above: Order Comment: No: D o not add to previous draw Performed By: #### 0 0071, 32909 #### [facility] [address] [place] [address], [facility] ABS IMM GRANS 0.1 10*3/uL Normal 0.0-0.2 [facility] Comment on above: Order Comment: No: D o not add to previous draw Performed By: #### 0 0071, 24535 #### [facility] [address] ABS NEUTROPHILS 6.5 10*3/uL Normal 1.6-7.6 The [facility] Comment on above: Order Comment: No: D o not add to previous draw Performed By: #### 0 0071, 50371 #### [facility] [address] [place] [address], [facility] Basophils/100 WBC (Bld) 0.7 % Normal 0.0-1.[address] [facility] Comment on above: Order Comment: No: D o not add to previous draw Performed By: #### 0 0071, 88690 #### [facility] [address] [place] [address], [facility] Eosinophils (Bld) [#/Vol] 0.2 10*3/uL Normal 0.0-0.[address] [facility] Comment on above: Order Comment: No: D o not add to previous draw Performed By: #### 0 0071, 59585 #### [facility] [address] [place] [address], [facility] Eosinophils/100 WBC (Bld) 2.5 % Normal 0.0-6.[address] [facility] Comment on above: Order Comment: No: D o not add to previous draw Performed By: #### 0 0071, 59698 #### [facility] [address] [place] [address], [facility] Erythrocyte distribution width (RBC) [Ratio] 14.9 % Normal 11.5-15.[address] [facility] Comment on above: Order Comment: No: D o not add to previous draw Performed By: #### 0 0071, 74031 #### [facility] [address] [place] [address], [facility] Hematocrit (Bld) [Volume fraction] 37.8 % Normal 36.0-45.[address] [facility] Comment on above: Order Comment: No: D o not add to previous draw Performed By: #### 0 0071, 11612 #### [facility] [address] [place] [address], [facility] Hemoglobin (Bld) [Mass/Vol] 12.0 g/dL Normal 12.0-15.[address] [facility] Comment on above: Order Comment: No: D o not add to previous draw Performed By: #### 0 0071, 94846 #### [facility] [address] [place] [place] [address], [facility] IMMATURE GRANS 0.6 % Normal 0.0-1.0 [facility] Comment on above: Order Comment: No: D o not add to previous draw Performed By: #### 0 0071, 39244 #### [facility] [address] [place] [address], [facility] Lymphocytes (Bld) [#/Vol] 1.0 10*3/uL Low 1.2-4.[address] [facility] Comment on above: Order Comment: No: D o not add to previous draw Performed By: #### 0 0071, 66065 #### [facility] [address] [place] [address], [facility] Lymphocytes/100 WBC (Bld) 11.3 % Low 20.0-45.[address] [facility] Comment on above: Order Comment: No: D o not add to previous draw Performed By: #### 0 0071, 76521 #### [facility] [address] [place] [address], [facility] MCH (RBC) [Entitic mass] 29.0 pg Normal 27.0-33.[address] [facility] Comment on above: Order Comment: No: D o not add to previous draw Performed By: #### 0 0071, 49757 #### [facility] [address] [place] [address], [facility] MCHC (RBC) [Mass/Vol] 31.7 g/dL Low 32.0-35.[address] [facility] Comment on above: Order Comment: No: D o not add to previous draw Performed By: #### 0 0071, 91936 #### [facility] [address] [place] [address], [facility] MCV (RBC) [Entitic vol] 91.3 fL Normal 82.0-98.[address] [facility] Comment on above: Order Comment: No: D o not add to previous draw Performed By: #### 0 0071, 91982 #### [facility] [address] [place] [address], [facility] Monocytes (Bld) [#/Vol] 0.9 10*3/uL Normal 0.1-1.[address] [facility] Comment on above: Order Comment: No: D o not add to previous draw Performed By: #### 0 0071, 06567 #### [facility] [address] [place] [address], [facility] MONOS 10.3 % Normal 5.0-12.[address] [facility] Comment on above: Order Comment: No: D o not add to previous draw Performed By: #### 0 0071, 63930 #### [facility] [address] [place] [address], [facility] Neutrophils/100 WBC (Bld) 74.6 % High 40.0-72.[address] [facility] Comment on above: Order Comment: No: D o not add to previous draw Performed By: #### 0 0071, 00548 #### [facility] [address] [place] [address], [facility] Nucleated RBC/100 WBC (Bld) [Ratio] 0 % Normal 0-[address] [facility] Comment on above: Order Comment: No: D o not add to previous draw Performed By: #### 0 0071, 85149 #### [facility] [address] [place] [address], [place] PLAT CNT 229 10*3/uL Normal 150-400 The [facility] Comment on above: Order Comment: No: D o not add to previous draw Performed By: #### 0 0071, 68764 #### [facility] [address] [place] [address], [facility] RBC (Bld) [#/Vol] 4.14 10*6/uL Normal 3.80-5.00 [facility] Comment on above: Order Comment: No: D o not add to previous draw Performed By: #### 0 0071, 04655 #### [facility] [address] [place] [address], [facility] WBC (Bld) [#/Vol] 8.65 10*3/uL Normal 4.00-10.60 [facility] Comment on above: Order Comment: No: D o not add to previous draw Performed By: #### 0 0071, 51476 #### [facility] [address] [place] [address], [facility] MAGNESIUM BLOODon 07-02-2020 Magnesium [Mass/Vol] 1.8 mg/dL Low 1.9-2.[address] [facility] Comment on above: Order Comment: No: D o not add to previous draw Performed By: #### 0 0071, 19660 #### [facility] [address] [place] [address], [facility] POC GLUCOSE LABon 07-02-2020 Glucose [Mass/Vol] 157 mg/dL High 70-100 [facility] Comment on above: Performed By: #### 8 5499 #### [address] *MRSA/MSSA CULTUREon 020 *MRSA/MSSA CULTURE Clinical [...] above: Performed By: #### 3 1302 #### [address] LUMBAR SPINE 2 OR 3 [facility] LUMBAR SPINE [address] [facility] Department of Radiology [address] [place] [phone] Patient Name: MONICA ACOSTA : 1960 Sex: F Age: Race: White Pt. Location: [id number] Patient Status: I Ordered Date: 07/01/2020 7:00:00 AM Completed Date: 07/01/2020 12:20 PM Requesting Provider: CHILANGO MARTINEZ Attending Provider: CHILANGO MARTINEZ Report Copy To: Signs & Symptoms: L1 VERTEBROPLASTY History: Comments: L1 VERTEBROPLASTY Exam: LUMBAR SPINE 2 OR 3 VWS LUMBAR SPINE 2 OR 3 S 07/01/2020 12:20 PM CLINICAL INDICATIONS: L1 VERTEBROPLASTY [...] reports Electronically signed: Richard Clarke. Transcribed by: [email or web address], User Resident: BOGDAN SOTELO Electronically Signed by: RICHARD CLARKE @ 07/01/2020 08:54 PM I personally read this/these film(s) with this resident Normal [facility] Comment on above: Order Comment: No: D o not add to previous draw Operative Reporton 0 Operative Report MR#: [id number] [facility] Pt. Name: Monica Acosta Room #: [id number] Discharge Date: Birthdate: 1960 OPERATIVE REPORT DATE OF SURGERY: 07/01/2020 SURGEON: Chilango Martinez M.D. [employer] OWNER: Ant Jolley M.D. PREOPERATIVE DIAGNOSIS: L1 vertebral compression fracture secondary to osteoporosis (ICD-10 M80.08XA). ANESTHESIA: General endotracheal. POSITION: Prone position on the Chris table in reverse Trendelenburg position. OPERATION: 1. L1 vertebroplasty (16190). 2. Use of intraoperative fluoroscopy (46867). POSTOPERATIVE DIAGNOSIS: [id number] compression fracture secondary to osteoporosis (ICD-10 M80.08XA). ESTIMATED BLOOD LOSS: Minimal Minimal. FLUID GIVEN: 700mL.crystaloid and 500mL. albumin COMPLICATIONS: None. INDICATION: Mrs. Acsota is 59 year-old patient who seen with [...] lateral, the cement from [employer] system from [employer] was mixed. Cement was injected under live [...] Martinez M.D. Date Trans: 07/01/2020 12:25 P/ [id number] [facility] POC GLUCOSE LABon 07-01-2020 Glucose [Mass/Vol] 142 mg/dL High 70-100 The [facility] Comment on above: Performed By: #### 8 5499 ####[facility].[address] Glucose [Mass/Vol] 156 mg/dL High 70-100 [facility] Comment on above: Performed By: #### 3 1792 #### [facility] [address] [place] [address], [facility] Glucose [Mass/Vol] 187 mg/dL High 70-100 [facility] Comment on above: Performed By: #### 3 1792 #### [facility] [address] [facility]. [address] *SARS-CoV-2 COVID-19on 06-30 [id number] Not Detected Normal Not Detected [facility] Comment on above: Order Comment: The A ptima SARS-CoV-2 assay is a nucleic acid amplification test intended for the qualitative detection of RNA from SARS-CoV-2 isolated and purified from nasopharyngeal (FUR PULLER),oropharyngeal (OP), nasal swab, sputum, and bronchoalveolar lavage (BAL) specimens from patients with signs and symptoms of infection who are suspected of COVID-19. Results are for the identification of SARS-CoV-2 RNA. The SARS-CoV-2 RNA is generally detectable during the acute phase of infection. The Aptima SARS-CoV-2 Assay on the [employer] and [employer] system is intended for use by laboratory personnel specifically instructed and trained in the operation of the [employer] system. The Aptima SARS-CoV-2 assay is [...] information. Performed By: #### 3 1792 #### [facility] [address] APTTon 06-30-2020 aPTT Coag (Bld) [Time] [...] PURPOSE. Performed By: #### 8 5499 #### [facility] [address] BASIC METABOLIC PANELon 10-2 Calcium [Mass/Vol] 9.5 mg/dL Normal 8.6-10.3 [facility] Comment on above: Performed By: #### 8 5499 #### [facility] [address] [place] [address], [facility] Chloride [Moles/Vol] 95 mmol/L Low 98-[address] [facility] Comment on above: Performed By: #### 8 5499 #### [facility] [address] [facility] [place] [address], [facility] CO2 [Moles/Vol] 21 mmol/L Normal 21-[address] [facility] Comment on above: Performed By: #### 8 5499 #### [facility] [address] [place] [address], [place] Creatinine [Mass/Vol] 1.00 mg/dL Normal 0.60-1.[address] [facility] Comment on above: Performed By: #### 8 5499 #### [facility] [address] [place] [address], [place] GFR/1.73 sq M predicted among blacks MDRD (S/P/Bld) [Vol rate/Area] mL/min/{1.73_m2} Normal >[address] [facility] Comment on above: Performed By: #### 8 5499 #### [facility] [address] [place] [address], [place] GFR/1.73 sq M predicted among non-blacks MDRD (S/P/Bld) [Vol rate/Area] 56 ml/min/1.73sq m Abnormal >60 The [facility] Comment on above: Performed By: #### 8 5499 #### [facility] [address] [place] [address], [place] Glucose [Mass/Vol] 395 mg/dL High 70-100 [facility] Comment on above: Performed By: #### 8 5499 #### [facility] [address] [place] [address], [place] Potassium [Moles/Vol] 4.4 mmol/L Normal 3.5-5.[address] [facility] Comment on above: Performed By: #### 8 5499 #### [facility] [address] [place] [address], [place] Sodium [Moles/Vol] 134 mmol/L Low 136-145 [facility] Comment on above: Performed By: #### 8 5499 #### [facility] [address] [place] [address], [place] Urea nitrogen [Mass/Vol] 24 mg/dL Normal 7-[address] [facility] Comment on above: Performed By: #### 8 5499 #### [facility] [address] BNP (B-TYPE NATRIURETIC PEPT PADMAJA)on 06-30-2020 Natriuretic peptide B (Bld) [Mass/Vol] 27 pg/mL Normal 0-[address] [facility] Comment on above: Order Comment: No: D o not add to previous draw Result Comment: Give n the appropriate clinical setting a BNP result of >100 pg/mL indicates congestive heart failure. Performed By: #### 0 0071, 61717 #### [facility] [address] CBC W/DIFFon 06-30-2020 ABS BASOPHILS 0.1 10*3/uL Normal 0.0-0.2 The [facility] Comment on above: Performed By: #### 8 5499 #### [facility] [address] ABS IMM GRANS 0.1 10*3/uL Normal 0.0-0.2 The [facility] Comment on above: Performed By: #### 8 5499 #### [facility] [address] ABS NEUTROPHILS 10.3 10*3/uL High 1.6-7.6 [facility] Comment on above: Performed By: #### 8 5499 #### [facility] [address] Basophils/100 WBC (Bld) 0.7 % Normal 0.0-1.[address] [facility] Comment on above: Performed By: #### 8 5499 #### [facility] [address] [place] [address], [facility] Eosinophils (Bld) [#/Vol] 0.2 10*3/uL Normal 0.0-0.[address] [facility] Comment on above: Performed By: #### 8 5499 #### [facility] [address] [place] [address], [facility] Eosinophils/100 WBC (Bld) 1.4 % Normal 0.0-6.[address] [facility] Comment on above: Performed By: #### 8 5499 #### [facility] [address] [facility] [place] [address], [facility] Erythrocyte distribution width (RBC) [Ratio] 14.7 % Normal 11.5-15.[address] [facility] Comment on above: Performed By: #### 8 5499 #### [facility] [address] [facility] [place] [address], [facility] Hematocrit (Bld) [Volume fraction] 47.7 % High 36.0-45.[address] [facility] Comment on above: Performed By: #### 8 5499 #### [facility] [address] [facility] [place] [address], [facility] Hemoglobin (Bld) [Mass/Vol] 15.3 g/dL High 12.0-15.[address] [facility] Comment on above: Performed By: #### 8 5499 #### [facility] [address] [place] [address], [facility] IMMATURE GRANS 0.6 % Normal 0.0-1.0 The [facility] Comment on above: Performed By: #### 8 5499 #### [facility] [address] [facility] [place] [address], [facility] Lymphocytes (Bld) [#/Vol] 1.4 10*3/uL Normal 1.2-4.[address] [facility] Comment on above: Performed By: #### 8 5499 #### [facility] [address] [place] [place] [address], [facility] Lymphocytes/100 WBC (Bld) 11.0 % Low 20.0-45.[address] [facility] Comment on above: Performed By: #### 8 5499 #### [facility] [address] [facility] [place] [address], [facility] MCH (RBC) [Entitic mass] 28.7 pg Normal 27.0-33.[address] [facility] Comment on above: Performed By: #### 8 5499 #### [facility] [address] [facility] [place] [place] [address], [facility] MCHC (RBC) [Mass/Vol] 32.1 g/dL Normal 32.0-35.[address] [facility] Comment on above: Performed By: #### 8 5499 #### [facility] [address] MCV (RBC) [Entitic vol] 89.3 fL Normal 82.0-98.[address] [facility] Comment on above: Performed By: #### 8 5499 #### [facility] [address] Monocytes (Bld) [#/Vol] 1.0 10*3/uL Normal 0.1-1.[address] [facility] Comment on above: Performed By: #### 8 5499 #### [facility] [address] MONOS 7.4 % Normal 5.0-12.[address] [facility] Comment on above: Performed By: #### 8 5499 #### [facility] [address] Neutrophils/100 WBC (Bld) 78.9 % High 40.0-72.[address] [facility] Comment on above: Performed By: #### 8 5499 #### [facility] [address] [place] [address], [facility] Nucleated RBC/100 WBC (Bld) [Ratio] 0 % Normal 0-[address] [facility] Comment on above: Performed By: #### 8 5499 #### [facility] [address] PLAT CNT 315 10*3/uL Normal 150-400 [facility] Comment on above: Performed By: #### 8 5499 #### [address] RBC (Bld) [#/Vol] 5.34 10*6/uL High 3.80-5.00 [facility] Comment on above: Performed By: #### 8 5499 #### [facility] [address] [place] [address], [facility] WBC (Bld) [#/Vol] 13.03 10*3/uL High 4.00-10.60 [facility] Comment on above: Performed By: #### 8 5499 #### [address] BRAIN WO CONTRASTon 06-30 CT BRAIN WO CONTRAST [facility] Department of Radiology [address] [place], [place] [phone] Patient Name: MONICA ACOSTA : 1960 Sex: F Age: Race: White Pt. Location: [facility] Patient Status: E Ordered Date: 06/30/2020 [...] achievable Electronically signed: Enio Miles. Transcribed by: [email or web address], User Resident: Electronically Signed by: ENIO MILES @ 06/30/2020 07:[address] [facility] Comment on above: Order Comment: Bleed CT CERVICAL SPINE WITHOUT CO NTRASTon 06-30-2020 CT CERVICAL SPINE WITHOUT CONTRAST [facility] Department of Radiology [address] [place] [phone] Patient Name: MONICA AOCSTA : 1960 Sex: F Age: Race: White Pt. Location: [facility] Patient Status: Krystle Ordered Date: 06/30/2020 6:35:00 [...] malalignment. Electronically signed: Enio Miles. Transcribed by: [email or web address], User Resident: Electronically Signed by: ENIO MILES @ 06/30/2020 07:[address] [facility] Comment on above: Order Comment: No: D o not add to previous draw CT LUMBAR SPINE WO CONTRASTo n 06-30-2020 CT LUMBAR SPINE WO CONTRAST [facility] Department of Radiology [address] [place] [phone] Patient Name: MONICA ACOSTA : 1960 Sex: F Age: Race: White Pt. Location: [facility] Patient Status: E Ordered Date: 06/30/2020 [...] injury. Electronically signed: Enio Miles. Transcribed by: [email or web address], User Resident: Electronically Signed by: ENIO MILES @ 06/30/2020 07:[address] [facility] Comment on above: Order Comment: No: D o not add to previous draw CTA CHESTon 06-30-[address] [facility] Department of Radiology [address] [place] [phone] Patient Name: MONICA ACOSTA : 1960 Sex: F Age: Race: White Pt. Location: [id number] Patient Status: I Ordered Date: 06/30/2020 3:25:00 [...] atelectasis. Electronically signed: Richard Clarke. Transcribed by: [email or web address], User Resident: Electronically Signed by: RICHARD CLARKE @ 06/30/2020 08:[address] [facility] Comment on above: Order Comment: No: D o not add to previous draw D DIMER TESTon 06-30-2020 D-DIMER TEST 1.78 mcg/mL FEU High 0.27-0.49 [facility] Comment on above: Order Comment: No: D o not add to previous draw Result Comment: D-Di pema values of less than 0.50 ug/ml (FEU) are considered to be a negative predictor of thrombosis. However, the D-Dimer result should be used in conjunction with pretest probability and should not be used alone to diagnose a thrombotic event. Performed By: #### 0 0071, [address]167 #### [place] [address] [address] HEMOGLOBIN A1Con 06-30-2020 HbA1c (Bld) [Mass fraction] 200 mmol/L Normal [facility] Comment on above: Order Comment: No: D o not add to previous draw Performed By: #### 0 0071, 21652 #### [facility] [address] [place] [address], [facility] HbA1c (Bld) [Mass fraction] 8.6 % High 4.0-6.[address] [facility] Comment on above: Order Comment: No: D o not add to previous draw Performed By: #### 0 0071, 61373 #### [facility] [address] [facility] [place] [address], [facility] LACTATE BLOODon 06-30-2020 Lactate [Moles/Vol] 1.5 mmol/L Normal 0.5-2.2 [facility] Comment on above: Order Comment: No: D o not add to previous draw Performed By: #### 0 0071, 18484 #### [facility] [address] [place] [address], [facility] MAGNESIUM BLOODon 06-30-2020 Magnesium [Mass/Vol] 1.9 mg/dL Normal 1.9-2.[address] [facility] Comment on above: Order Comment: No: D o not add to previous draw Performed By: #### 0 0071, 48849 #### [facility] [address] [facility] [place] [address], [facility] MRI LUMBAR SPINE W WO CONTRA STon 06-30-2020 MRI LUMBAR SPINE W WO CONTRAST [facility] Department of Radiology [address] [place] [phone] Patient Name: MONICA ACOSTA : 1960 Sex: F Age: Race: White Pt. Location: [facility] Patient Status: I Ordered Date: 06/30/2020 7:50:00 AM Completed Date: 06/30/2020 10:59 AM Requesting Provider: SOLO HOPKINS Attending Provider: MEHREEN SANCHEZ Report Copy [...] changes. Electronically signed: Dom Carbajal. Transcribed by: [email or web address], User Resident: Electronically Signed by: DOM CARBAJAL @ 06/30/2020 11:[address] [facility] Comment on above: Order Comment: No: D o not add to previous draw POC GLUCOSE EDon 06-30-2020 Glucose [Mass/Vol] 388 mg/dL High 70-100 [facility] Comment on above: Performed By: #### 8 5499 #### [facility] [address] [place] [address], [place] POC GLUCOSE LABon 06-30-2020 Glucose [Mass/Vol] 430 mg/dL High 70-100 [facility] Comment on above: Performed By: #### 8 5499 ####[facility] [place] [address], [place] Glucose [Mass/Vol] 308 mg/dL High 70-100 [facility] Comment on above: Performed By: #### 3 1792 #### [facility] [address] [place] [address], [place] Glucose [Mass/Vol] 348 mg/dL High 70-100 [facility] Comment on above: Performed By: #### 8 5499 #### [facility] [address] [place] [address], [place] PROCALCITONINon 06-30-2020 PROCALCITONIN 0.11 ng/mL High 0.00-0.10 The [facility] Comment on above: Order Comment: [...] initial PCT<0.5ng/mL Performed By: #### 0 0071, 82917 #### [facility] [address] [facility]. [address] PROTHROMBIN TIMEon 0 INR Coag (PPP) [...] 1995;108:231S-246S. Performed By: #### 8 5499 #### [facility] [address] [place] [address], [facility] PT Coag (PPP) [Time] 12.0 s Low 12.3-14.8 [facility] Comment on above: Result Comment: ALL RESULTS MUST BE INTERPRETED WITH RESPECT TO BLOOD DRAWING ARTIFACT OR DILUTION ERROR OF ANTICOAGULANT AT THE TIME OF SAMPLING. Performed By: #### 8 5499 #### [facility] [address] [facility] [place] [address], [facility] TPO ANTIBODY [id number] 020 TPO ANTIBODY 0.8 IU/mL Normal 0.0-9.0 The [facility] Comment on above: Result Comment: Perf ormed By: [employer] [address] [place] [address] Medical Affairs Specialist: Emilia Arrieta MD TROPONIN-Ion 06-30-2020 Troponin I.cardiac [Mass/Vol] 0.01 ng/mL Normal 0.00-0.04 [facility] Comment on above: Order Comment: No: D o not add to previous draw Result Comment: REFE RENCE RANGES: 0.00 - 0.04 ng/ml NORMAL 0.05 - 0.50 ng/ml INDETERMINATE > 0.50 ng/ml CONSISTENT WITH AN M.I. Performed By: #### 0 0071, 45913 #### [facility] [address] [place] [address], [facility] Performed By: #### 8 5499 #### [facility] [address] [facility] [place] [address], [facility] TYPE AND SCREENon 06-30-2020 ABO INTERPRETATION A Normal [facility] Comment on above: Performed By: #### 8 5499 #### [facility] [address] [facility] [place] [address], [facility] RH INTERPRETATION Positive Normal [facility] Comment on above: Performed By: #### 8 5499 #### [facility] [address] [facility] [place] [address], [facility] LUMBAR SPINE 2 OR 3 VWSon LUMBAR SPINE [address] [facility] Department of Radiology [address] [place] [phone] Patient Name: MONICA ACOSTA : 1960 [...] reports Electronically signed: Jamie Elizondo. Transcribed by: [email or web address], User Resident: BOGDAN SOTELO Electronically Signed by: JAMIE ELIZONDO @ 06/26/2020 11:06 AM I personally read this/these film(s) with this resident Normal [facility] Comment on above: Order Comment: No: D o not add to previous draw Vital Signs Date Time Vital Sign Value Performing Clinician Facility 03-14-2025 13:27-0400 Body height 170.2 cm Rudolph Hurt MD Work Phone: [facility] 03-14-2025 13:27-0400 Body mass index (BMI) [Ratio] 28.66 kg/m2 Rudolph Hurt MD Work Phone: [facility] 03-14-2025 13:27-0400 Body temperature 97.11 [degF] Rudolph Hurt MD Work Phone: [facility] 03-14-2025 13:27-0400 Body weight 83.01 kg Rudolph Hurt MD Work Phone: [facility] 03-14-2025 13:27-0400 Diastolic blood pressure 58 mm[Hg] Rudolph Hurt MD Work Phone: [facility] 03-14-2025 13:27-0400 Heart rate 89 /min Rudolph Hurt MD Work Phone: [facility] 03-14-2025 13:27-0400 Respiratory rate 20 /min Rudolph Hurt MD Work Phone: [facility] 03-14-2025 13:27-0400 SaO2% (BldA) [Mass fraction] 95 % Rudolph Hurt MD Work Phone: [facility] 03-14-2025 13:27-0400 Systolic blood pressure 118 mm[Hg] Rudolph Hurt MD Work Phone: [facility] 03-11-2025 12:59-0400 Body height 170.18 cm Rudolph Hurt MD Work Phone: [facility] 03-11-2025 12:59-0400 Body mass index (BMI) [Ratio] 28.5 kg/m2 Rudolph Hurt MD Work Phone: [facility] 03-11-2025 12:59-0400 Body temperature 98.6 [degF] Rudolph Hurt MD Work Phone: [facility] 03-11-2025 12:59-0400 Body weight 82.78 kg Rudolph Hurt MD Work Phone: [facility] 03-11-2025 12:59-0400 Diastolic blood pressure 70 mm[Hg] Rudolph Hurt MD Work Phone: [facility] 03-11-2025 12:59-0400 Heart rate 83 /min Rudolph Hurt MD Work Phone: [facility] 03-11-2025 12:59-0400 Respiratory rate 18 /min Rudolph Hurt MD Work Phone: [facility] 03-11-2025 12:59-0400 SaO2% (BldA) [Mass fraction] 97 % Rudolph Hurt MD Work Phone: [facility] 03-11-2025 12:59-0400 Systolic blood pressure 117 mm[Hg] Rudolph Hurt MD Work Phone: [facility] 01-15-2025 12:06-0400 Body height 170.2 cm Rudolph Hurt MD Work Phone: [facility] 01-15-2025 12:06-0400 Body mass index (BMI) [Ratio] 29.29 kg/m2 Rudolph Hurt MD Work Phone: [facility] 01-15-2025 12:06-0400 Body temperature 96.21 [degF] Rudolph Hurt MD Work Phone: [facility] 01-15-2025 12:06-0400 Body weight 84.82 kg Rudolph Hurt MD Work Phone: [facility] 01-15-2025 12:06-0400 Diastolic blood pressure 70 mm[Hg] Rudolph Hurt MD Work Phone: [facility] 01-15-2025 12:06-0400 Heart rate 88 /min Rudolph Hurt MD Work Phone: [facility] 01-15-2025 12:06-0400 Respiratory rate 20 /min Rudolph Hurt MD Work Phone: [facility] 01-15-2025 12:06-0400 SaO2% (BldA) [Mass fraction] 97 % Rudolph Hurt MD Work Phone: [facility] 01-15-2025 12:06-0400 Systolic blood pressure 140 mm[Hg] Rudolph Hurt MD Work Phone: [facility] 12-31-2024 13:52-0400 Body height 170.2 cm Zeyad Tate MD Work Phone: [facility] 12-31-2024 13:52-0400 Body mass index (BMI) [Ratio] 29.91 kg/m2 Zeyad Tate MD Work Phone: [facility] 12-31-2024 13:52-0400 Body weight 86.64 kg Zeyad Tate MD Work Phone: [facility] 12-31-2024 13:52-0400 Diastolic blood pressure 60 mm[Hg] Zeyad Tate MD Work Phone: [facility] 12-31-2024 13:52-0400 Heart rate 82 /min Zeyad Tate MD Work Phone: [facility] 12-31-2024 13:52-0400 Respiratory rate 18 /min Zeyad Tate MD Work Phone: [facility] 12-31-2024 13:52-0400 SaO2% (BldA) [Mass fraction] 97 % Zeyad Tate MD Work Phone: [facility] 12-31-2024 13:52-0400 Systolic blood pressure 110 mm[Hg] Zeyad Tate MD Work Phone: [facility] 12-10-2024 14:18-0400 Body height 170.2 cm Rudolph Hurt MD Work Phone: [facility] 12-10-2024 14:18-0400 Body mass index (BMI) [Ratio] 29.29 kg/m2 Rudolph Hurt MD Work Phone: [facility] 12-10-2024 14:18-0400 Body temperature 97.11 [degF] Rudolph Hurt MD Work Phone: [facility] 12-10-2024 14:18-0400 Body weight 84.82 kg Rudolph Hurt MD Work Phone: [facility] 12-10-2024 14:18-0400 Diastolic blood pressure 76 mm[Hg] Rudolph Hurt MD Work Phone: [facility] 12-10-2024 14:18-0400 Heart rate 87 /min Rudolph Hurt MD Work Phone: [facility] 12-10-2024 14:18-0400 Respiratory rate 22 /min Rudolph Hurt MD Work Phone: [facility] 12-10-2024 14:18-0400 SaO2% (BldA) [Mass fraction] 95 % Rudolph Hurt MD Work Phone: [facility] 12-10-2024 14:18-0400 Systolic blood pressure 114 mm[Hg] Rudolph Hurt MD Work Phone: [facility] 11-19-2024 13:38-0400 Body height 170.2 cm Collin Saba MD Work Phone: [facility] 11-19-2024 13:38-0400 Body mass index (BMI) [Ratio] 29.12 kg/m2 Collin Saba MD Work Phone: [facility] 11-19-2024 13:38-0400 Body weight 84.37 kg Collin Saba MD Work Phone: [facility] 11-19-2024 13:38-0400 Diastolic blood pressure 64 mm[Hg] Collin Saba MD Work Phone: [facility] 11-19-2024 13:38-0400 Respiratory rate 18 /min Collin Saba MD Work Phone: [facility] 11-19-2024 13:38-0400 Systolic blood pressure 114 mm[Hg] Collin Saba MD Work Phone: [facility] 09-19-2024 11:19-0500 Body height 170.2 cm Rudolph Hurt MD Work Phone: [facility] 09-19-2024 11:19-0500 Body mass index (BMI) [Ratio] 29.76 kg/m2 Rudolph Hurt MD Work Phone: [facility] 09-19-2024 11:19-0500 Body temperature 96.21 [degF] Rudolph Hurt MD Work Phone: [facility] 09-19-2024 11:19-0500 Body weight 86.18 kg Rudolph Hurt MD Work Phone: [facility] 09-19-2024 11:19-0500 Diastolic blood pressure 66 mm[Hg] Rudolph Hurt MD Work Phone: [facility] 09-19-2024 11:19-0500 Heart rate 102 /min Rudolph Hurt MD Work Phone: [facility] 09-19-2024 11:19-0500 Respiratory rate 22 /min Rudolph Hurt MD Work Phone: [facility] 09-19-2024 11:19-0500 SaO2% (BldA) [Mass fraction] 91 % Rudolph Hurt MD Work Phone: [facility] 09-19-2024 11:19-0500 Systolic blood pressure 124 mm[Hg] Rudolph Hurt MD Work Phone: [facility] 08-21-2024 13:37-0500 Body height 170.2 cm Zeyad Tate MD Work Phone: [facility] 08-21-2024 13:37-0500 Body mass index (BMI) [Ratio] 30.7 kg/m2 Zeyad Tate MD Work Phone: [facility] 08-21-2024 13:37-0500 Body weight 88.91 kg Zeyad Tate MD Work Phone: [facility] 08-21-2024 13:37-0500 Diastolic blood pressure 66 mm[Hg] Zeyad Tate MD Work Phone: [facility] 08-21-2024 13:37-0500 Heart rate 83 /min Zeyad Tate MD Work Phone: [facility] 08-21-2024 13:37-0500 Respiratory rate 18 /min Zeyad Tate MD Work Phone: [facility] 08-21-2024 13:37-0500 Systolic blood pressure 100 mm[Hg] Zeyad Tate MD Work Phone: [facility] 04-13-2024 11:43-0400 Body height 170.2 cm Zenюлия Cornejothao DO Work Phone: [facility] 04-13-2024 11:43-0400 Body mass index (BMI) [Ratio] 28.66 kg/m2 Zen Chantallong DO Work Phone: [facility] 04-13-2024 11:43-0400 Body temperature 98.01 [degF] Zenюлия Cornejolong DO Work Phone: [facility] 04-13-2024 11:43-0400 Body weight 83.01 kg Zen Furlong DO Work Phone: [facility] 04-13-2024 11:43-0400 Diastolic blood pressure 60 mm[Hg] Zen Furlong DO Work Phone: [facility] 04-13-2024 11:43-0400 Heart rate 88 /min Zen Furlong DO Work Phone: [facility] 04-13-2024 11:43-0400 SaO2% (BldA) [Mass fraction] 97 % Zen Furlong DO Work Phone: [facility] 04-13-2024 11:43-0400 Systolic blood pressure 100 mm[Hg] Zen Furlong DO Work Phone: [facility] 03-26-2024 13:20-0400 Body height 170.2 cm Zen Furlong DO Work Phone: [facility] 03-26-2024 13:20-0400 Body mass index (BMI) [Ratio] 28.72 kg/m2 Zen Furlong DO Work Phone: [facility] 03-26-2024 13:20-0400 Body temperature 97.9 [degF] Zen Furlong DO Work Phone: [facility] 03-26-2024 13:20-0400 Body weight 83.19 kg Zen Furlong DO Work Phone: [facility] 03-26-2024 13:20-0400 Diastolic blood pressure 60 mm[Hg] Zen Furlong DO Work Phone: [facility] 03-26-2024 13:20-0400 Heart rate 81 /min Zen Furlong DO Work Phone: [facility] 03-26-2024 13:20-0400 SaO2% (BldA) [Mass fraction] 97 % Zen Furlong DO Work Phone: [facility] 03-26-2024 13:20-0400 Systolic blood pressure 110 mm[Hg] Zen Furlong DO Work Phone: [facility] 02-09-2024 16:28-0400 Body height 170.2 cm Zen Furlong DO Work Phone: [facility] 02-09-2024 16:28-0400 Body mass index (BMI) [Ratio] 28.33 kg/m2 Zen Furlong DO Work Phone: [facility] 02-09-2024 16:28-0400 Body temperature 98.2 [degF] Zen Furlong DO Work Phone: [facility] 02-09-2024 16:28-0400 Body weight 82.06 kg Zen Furlong DO Work Phone: [facility] 02-09-2024 16:28-0400 Diastolic blood pressure 60 mm[Hg] Zen Furlong DO Work Phone: [facility] 02-09-2024 16:28-0400 Heart rate 84 /min Zen Furlong DO Work Phone: [facility] 02-09-2024 16:28-0400 Respiratory rate 18 /min Zen Furlong DO Work Phone: [facility] 02-09-2024 16:28-0400 SaO2% (BldA) [Mass fraction] 95 % Zen Furlong DO Work Phone: [facility] 02-09-2024 16:28-0400 Systolic blood pressure 110 mm[Hg] Zen Furlong DO Work Phone: [facility] 12-05-2023 12:52-0400 Body height 170.2 cm Demetra Porter [employer] Work Phone: [facility] 12-05-2023 12:52-0400 Body mass index (BMI) [Ratio] 28.16 kg/m2 Demetra [address] [employer] Work Phone: [facility] 12-05-2023 12:52-0400 Body temperature 97.59 [degF] Demetra [address] [employer] Work Phone: [facility] 12-05-2023 12:52-0400 Body weight 81.[address] [employer] Work Phone: [facility] 12-05-2023 12:52-0400 Diastolic blood pressure 58 mm[Hg] Demetra [address] [employer] Work Phone: [facility] 12-05-2023 12:52-0400 Heart rate 84 /min Demetra [address] [employer] Work Phone: [facility] 12-05-2023 12:52-0400 Respiratory rate 18 /min Demetra [address] [employer] Work Phone: [facility] 12-05-2023 12:52-0400 SaO2% (BldA) [Mass fraction] 98 % Demetra [address] [employer] Work Phone: [facility] 12-05-2023 12:52-0400 Systolic blood pressure 96 mm[Hg] Demetra [address] [employer] Work Phone: [facility] 07-27-2021 12:15-0500 Body height 170.18 cm Veronica Ginty Other [facility] Other 07-27-2021 12:15-0500 Body mass index (BMI) [Ratio] 27.88 kg/m2 Veronica Ginty Other [facility] Other 07-27-2021 12:15-0500 Body temperature 96 [degF] Veronica Ginty Other [facility] Other 07-27-2021 12:15-0500 Body weight 80.74 kg Veronica Mcneill Other [facility] Other 07-27-2021 12:15-0500 SaO2% (BldA) [Mass fraction] 96 % Veronica Mcneill Other [facility] Other Encounters Encounter Date Encounter Type Care Provider Facility Start: 03-14-2025 End: 03-14-2025 [employer] flowsheet Rudolph Hurt MD Work Phone: [facility] Start: 03-14-2025 End: 03-14-2025 [employer] Rudolph Hurt MD Work Phone: [facility] Start: 03-14-2025 End: 03-14-2025 Office outpatient visit 25 minutes Rudolph Hurt MD Work Phone: [facility] Comment on above: MDD (major depressiv e disorder), recurrent episode, moderate (HCC) (Primary Dx); Type I diabetes mellitus with polyneuropathy (HCC); Rheumatoid arthritis involving multiple sites with positive rheumatoid factor (HCC); Type 1 diabetes mellitus with hyperglycemia (HCC); POTS (postural orthostatic tachycardia syndrome); Coronary artery disease involving [place] coronary artery of [place] heart without angina pectoris Start: 03-14-2025 End: 03-14-2025 ambulatory RUDOLPH HURT Not Available Start: 03-11-2025 End: 03-11-2025 ambulatory Rudolph Hurt MD Work Phone: [facility] Work Phone: Start: 03-11-2025 End: 03-11-2025 Patient encounter procedure Silvia Blank [facility] [employer] Work Phone: Start: 02-25-2025 End: 02-26-2025 Refill Rudolph Hurt MD Work Phone: [facility] Comment on above: Coronary artery dise ase involving [place] coronary artery of [place] heart without angina pectoris (Primary Dx); Rheumatoid arthritis involving multiple sites with positive rheumatoid factor (HCC) Start: 01-26-2025 End: 01-29-2025 Refill Rudolph Hurt MD Work Phone: [facility] Comment on above: POTS (postural ortho static tachycardia syndrome) (Primary Dx); Rheumatoid arthritis involving multiple sites with positive rheumatoid factor (CMS/HCC) Start: 01-24-2025 End: 01-24-2025 Bamboo flowsheet Sanjeev Chairez PT Work Phone: [facility] Start: 01-24-2025 End: 01-24-2025 Bamboo flowsheet Sanjeev Chairez PT Work Phone: [facility] Start: 01-24-2025 End: 01-24-2025 ambulatory SANJEEV CHAIREZ Not Available Start: 01-15-2025 End: 01-15-2025 Office outpatient visit 25 minutes Rudolph Hurt MD Work Phone: [facility] Comment on above: Chest pain at rest ( Primary Dx); SOB (shortness of breath) on exertion; Coronary artery disease involving [place] coronary artery of [place] heart without angina pectoris (CMS/HCC); Hypersomnia Start: 01-15-2025 End: 01-15-2025 ambulatory RUDOLPH HURT Not Available Start: 12-31-2024 End: 12-31-2024 Office outpatient visit 40 minutes Zeyad Tate MD Work Phone: [facility] Comment on above: Type 1 diabetes ciara itus with hyperglycemia (HCC) (CMS/HCC) (Primary Dx); Essential (primary) hypertension (CMS/HCC); Vitamin D deficiency, unspecified; Dietary counseling and surveillance; Mixed hyperlipidemia (CMS/HCC); Presence of insulin pump (external) (internal); 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); Encounter for fitting or adjustment of insulin pump Start: 12-31-2024 End: 12-31-2024 Bamboo flowsheet Zeyad Tate MD Work Phone: [facility] Start: 12-31-2024 End: 12-31-2024 Bamboo flowsheet Zeyad Tate MD Work Phone: [facility] Start: 12-31-2024 End: 12-31-2024 ambulatory ZEYAD TATE Not Available Start: 12-27-2024 End: 12-27-2024 Refill Rudolph Hurt MD Work Phone: [facility] Comment on above: Rheumatoid arthritis involving multiple sites with positive rheumatoid factor (CMS/HCC) Start: 12-10-2024 End: 12-10-2024 Office outpatient visit 25 minutes Rudolph Hurt MD Work Phone: [facility] Comment on above: Type I diabetes ciara itus with polyneuropathy (CMS/HCC) (Primary Dx); Type 1 diabetes mellitus with hyperglycemia (HCC) (CMS/HCC); POTS (postural orthostatic tachycardia syndrome); Rheumatoid arthritis involving multiple sites with positive rheumatoid factor (CMS/HCC); Coronary artery disease involving [place] coronary artery of [place] heart without angina pectoris (CMS/HCC); Hypersomnia Start: 12-10-2024 End: 12-10-2024 Bamboo flowsheet Rudolph Hurt MD Work Phone: [facility] Start: 12-10-2024 End: 12-10-2024 Bamboo flowsheet Rudolph Hurt MD Work Phone: [facility] Start: 12-10-2024 End: 12-10-2024 ambulatory RUDOLPH HURT Not Available Start: 12-06-2024 End: 12-06-2024 Clinisync Result Encounter Generic External Data Provider [facility] External Department Unsolicited Start: 12-06-2024 End: 12-06-2024 Clinisync Result Encounter Generic External Data Provider [facility] External Department Unsolicited Start: 12-06-2024 End: 12-06-2024 ambulatory Zen Flores DO Work Phone: [facility] Work Phone: Start: 12-06-2024 End: 12-06-2024 Departed Referred Zen Flores Work Phone: [facility] Start: 12-05-2024 End: 12-06-2024 Clinisync Result Encounter Generic External Data Provider [facility] External Department Unsolicited Start: 12-05-2024 End: 12-06-2024 Clinisync Result Encounter Generic External Data Provider [facility] External Department Unsolicited Start: 12-03-2024 End: 12-03-2024 Clinisync Result Encounter Generic External Data Provider [facility] External Department Unsolicited Start: 12-03-2024 End: 12-03-2024 Clinisync Result Encounter Generic External Data Provider [facility] External Department Unsolicited Start: 12-03-2024 End: 12-03-2024 Refill Rudolph Hurt MD Work Phone: [facility] Comment on above: Rheumatoid arthritis involving multiple sites with positive rheumatoid factor (CMS/HCC) Start: 11-30-2024 End: 11-30-2024 Clinisync Result Encounter Generic External Data Provider [facility] External Department Unsolicited Start: 11-30-2024 End: 11-30-2024 Clinisync Result Encounter Generic External Data Provider [facility] External Department Unsolicited Start: 11-30-2024 End: 11-30-2024 ambulatory [facility] Start: 11-30-2024 End: 11-30-2024 Encounter for preprocedural cardiovascular examination [facility] Start: 11-19-2024 End: 11-19-2024 ambulatory [facility] Start: 11-19-2024 End: 11-19-2024 Office consultation new/estab patient 80 min Collin Saba MD Work Phone: [facility] Comment on above: Rheumatoid arthritis involving multiple sites, unspecified whether rheumatoid factor present ([facility]) (Primary Dx); Long-term use of Plaquenil; Long-term use of leflunomide therapy Start: 11-19-2024 End: 11-19-2024 ambulatory COLLIN SABA [facility] Start: 11-12-2024 End: 11-12-2024 Refill Rudolph Hurt MD Work Phone: [facility] Comment on above: Rheumatoid arthritis involving multiple sites with positive rheumatoid factor (CMS/HCC) Start: 10-19-2024 End: 10-19-2024 Refill Rudolph Hurt MD Work Phone: [facility] Comment on above: Rheumatoid arthritis involving multiple sites with positive rheumatoid factor (CMS/HCC) Start: 10-15-2024 End: 10-15-2024 ambulatory [facility] Start: 09-19-2024 End: 09-19-2024 Bamboo flowsheet Rudolph Hurt MD Work Phone: [facility] Start: 09-19-2024 End: 09-19-2024 Bamboo flowsheet Rudolph Hurt MD Work Phone: [facility] Start: 09-19-2024 End: 09-19-2024 Office outpatient new 45 minutes Rudolph Hurt MD Work Phone: [facility] Comment on above: Rheumatoid arthritis involving multiple sites with positive rheumatoid factor (CMS/HCC) (Primary Dx); Type I diabetes mellitus with polyneuropathy (CMS/HCC); Coronary artery disease involving [place] coronary artery of [place] heart without angina pectoris (CMS/HCC); PAD (peripheral artery disease) (CMS/HCC); POTS (postural orthostatic tachycardia syndrome); Type 1 diabetes mellitus with other circulatory complications (CMS/HCC); Type 1 diabetes mellitus with hyperglycemia (HCC) (CMS/HCC); Encounter for long-term (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 medications; Dyslipidemia (CMS/HCC); longterm (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 (CMS/HCC) Start: 09-19-2024 End: 09-19-2024 ambulatory RUDOLPH HURT Not Available Start: 08-21-2024 End: 08-21-2024 Bamboo flowsheet Zeyad Tate MD Work Phone: [facility] Start: 08-21-2024 End: 08-21-2024 Bamboo flowsheet Zeyad Tate MD Work Phone: [facility] Start: 08-21-2024 End: 08-21-2024 Office outpatient new 60 minutes Zeyad Tate MD Work Phone: [facility] Comment on above: Type 1 diabetes ciara itus with hyperglycemia (HCC) (CMS/HCC) (Primary Dx); Essential (primary) hypertension (CMS/HCC); Vitamin D deficiency, unspecified; Dietary counseling and surveillance; Mixed hyperlipidemia (CMS/HCC); Presence of insulin pump (external) (internal); longterm (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 (CMS/HCC); Encounter for fitting or adjustment of insulin pump Start: 08-21-2024 End: 08-21-2024 ambulatory ZEYAD TATE Not Available Start: 08-13-2024 End: 08-13-2024 ambulatory [facility] Start: 07-09-2024 End: 07-09-2024 ambulatory [facility] Start: 06-11-2024 End: 06-11-2024 ambulatory [facility] Start: 05-14-2024 End: 05-14-2024 ambulatory [facility] Start: 04-30-2024 End: 05-02-2024 Telephone encounter Ana Edwards CMA [facility] Start: 04-28-2024 Evaluation and manag ement of inpatient ANTONIO SEAY [facility] Start: 04-27-2024 Evaluation and manag ement of inpatient AUTUMN SCHWARZ [facility] Start: 04-25-2024 Evaluation and manag ement of inpatient CORTNEY HOLDEN [facility] Start: 04-24-2024 Evaluation and manag ement of inpatient BROOKE PEREZ [facility] Start: 04-22-2024 Evaluation and manag ement of inpatient [facility] Start: 04-22-2024 Evaluation and manag ement of inpatient [facility] Start: 04-22-2024 Emergency department patient visit ISIDRO DINERO [facility] Start: 04-21-2024 Emergency department patient visit ISIDRO DINERO [facility] Start: 04-21-2024 End: 05-01-2024 Evaluation and management of inpatient JULIO CESAR GARDNER [facility] Start: 04-16-2024 End: 04-16-2024 Orders Only Zen Flores DO Work Phone: [facility] Start: 04-13-2024 End: 04-13-2024 ambulatory [facility] Start: 04-13-2024 End: 04-13-2024 Office outpatient visit 25 minutes Zen Flores DO Work Phone: [facility] Comment on above: Stage 2 chronic kidn ey disease due to type 1 diabetes mellitus ([facility]) (Primary Dx); Rheumatoid arthritis involving multiple sites, unspecified whether rheumatoid factor present ([facility]); 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 ([facility]); Diabetic polyneuropathy associated with type 1 diabetes mellitus ([facility]); Hyperkalemia; Compression fracture of L1 vertebra, sequela Start: 04-13-2024 End: 04-13-2024 ambulatory [facility] Start: 04-03-2024 End: 04-03-2024 Orders Only Zen Flores DO Work Phone: [facility] Comment on above: Medication monitorin g encounter (Primary Dx); Compression fracture of L1 vertebra, sequela; Rheumatoid arthritis involving multiple sites, unspecified whether rheumatoid factor present ([facility]) Start: 04-03-2024 End: 04-03-2024 Refill Radha Ohara [employer] Work Phone: [facility] Start: 03-30-2024 End: 04-02-2024 [facility] Start: 03-29-2024 End: 03-29-2024 Telephone encounter Zen Flores DO Work Phone: [facility] Start: 03-27-2024 End: 03-27-2024 [facility] Start: 03-27-2024 End: 03-29-2024 ambulatory [facility] Comment on above: Rheumatoid arthritis involving multiple sites, unspecified whether rheumatoid factor present ([facility]) Start: 03-26-2024 End: 03-26-2024 [facility] Start: 03-26-2024 End: 03-26-2024 Office outpatient visit 25 minutes Zen Flores DO Work Phone: [facility] Comment on above: Compression fracture of L1 vertebra, sequela (Primary Dx); Rheumatoid arthritis involving multiple sites, unspecified whether rheumatoid factor present ([facility]); Other fatigue; Medication monitoring encounter; Primary hypertension; Type 1 diabetes mellitus with diabetic polyneuropathy ([facility]); Overweight Start: 03-26-2024 ambulatory [facility] Start: 03-20-2024 End: 03-20-2024 Refill Zen Flores DO Work Phone: [facility] Start: 02-27-2024 End: 02-27-2024 [...] knee, initial encounter Start: 02-09-2024 End: 02-09-2024 [facility] Start: 02-07-2024 End: 02-09-2024 Telephone encounter Demetra Porter [employer] Work Phone: [facility] Start: 01-27-2024 End: 01-27-2024 Orders Only Zen Flores DO Work [facility] Start: 01-26-2024 End: 01-27-2024 Refill Demetra Porter [employer] Work Phone: [facility] Comment on above: Rheumatoid arthritis involving multiple sites, unspecified whether rheumatoid factor present ([facility]) Start: 12-26-2023 End: 12-27-2023 Refill Zen Flores DO Work Phone: [facility] Start: 12-08-2023 Refill Dario Barker Work Phone: [facility] Start: 12-05-2023 End: 12-05-2023 ambulatory [facility] Start: 12-05-2023 End: 12-05-2023 Office outpatient visit 25 minutes Demetra Porter [employer] Work Phone: [facility] - Family Medicine Comment on above: Rheumatoid arthritis involving multiple sites, unspecified whether rheumatoid factor present ([facility]) (Primary Dx); Status post partial amputation of left foot ([facility]); Diabetic polyneuropathy associated with type 2 diabetes mellitus ([facility]); Severe depression ([facility]); PAD (peripheral artery disease) ([facility]); Compression fracture of L1 vertebra with routine healing, subsequent encounter; Mixed hyperlipidemia Start: 12-05-2023 End: 12-05-2023 ambulatory [facility] Start: 11-29-2023 Orders Only Demetra Porter [employer] Work Phone: [facility] Start: 11-15-2023 Orders Only Demetra Porter [employer] Work Phone: [facility] Start: 11-14-2023 Refill Zen Cornejolo ng DO Work Phone: [facility] Comment on above: Compression fracture of L1 vertebra with routine healing, subsequent encounter Start: 10-31-2023 Refill Zen Cornejolo ng DO Work Phone: [facility] Comment on above: Compression fracture of L1 vertebra with routine healing, subsequent encounter Start: 10-16-2023 Refill Zen Cornejolo ng DO Work Phone: [facility] Comment on above: Compression fracture of L1 vertebra with routine healing, subsequent encounter Start: 10-04-2023 Refill Zen Cornejolo ng DO Work Phone: [facility] Comment on above: Compression fracture of L1 vertebra with routine healing, subsequent encounter Start: 09-12-2023 Refill Zen Cornejolo ng DO Work Phone: [facility] Comment on above: Compression fracture of L1 vertebra with routine healing, subsequent encounter Start: 08-30-2023 Orders Only Zen Borden ng DO Work Phone: [facility] [...] Start: 05-31-2022 Encounter for preprocedural cardiovascular examination [facility] Start: 05-31-2022 Encounter for preprocedural laboratory examination [facility] Start: 05-31-2022 End: 06-03-[address] ZEN FLORES Facility:H1 Start: 05-27-2022 End: 05-28-2022 ambulatory RADHA BRANNON Facility:[facility]1 Start: 05-27-2022 End: 05-28-2022 Encounter for preprocedural cardiovascular examination RADHA BRANNON Facility:[facility]1 Start: 05-19-2022 End: 05-19-[address] ZEN FLORES Facility:[facility]1 Start: 05-18-2022 End: 05-19-2022 ambulatory RADHA RBANNON Facility:H1 Start: 05-13-2022 End: 05-14-2022 ambulatory RADHA [...] Encounter for preprocedural laboratory examination RADHA BRANNON [facility] Start: 03-13-2022 End: 03-15-2022 Evaluation and [...] Start: 02-16-2022 End: 02-17-2022 [facility] Start: 01-26-2022 End: 01-27-2022 ambulatory [facility] Start: 01-22-2022 End: 01-23-2022 ambulatory RADHA Nogueira [facility] Facility:H1 Start: 12-30-2021 End: 12-31-2021 ambulatory [facility] Start: 11-03-2021 End: 11-03-[address] ZEN FLORES Facility:[facility]1 Start: 10-27-2021 End: 10-28-[address] DEMETRA PORTER Facility:H1 Start: 07-27-2021 End: 07-27-2021 ambulatory Veronica Ginty [facility] Other Start: 07-27-2021 Office outpatient vi sit 15 minutes Veronica Ginty [facility] Start: 07-17-2020 End: 08-01-2020 Patient encounter procedure REFERRED SELF Facility:[facility] Start: 06-30-2020 End: 07-14-2020 Evaluation and management of inpatient REFERRED SELF Facility:[facility] Procedures Date Procedure Procedure Detail Performing Clinician Start: 12-31-2024 Gluc bld gluc mntr d ev cleared fda spec home use Zeyad Tate MD Work Phone: Start: 12-06-2024 Radiologic examinati on tibia & fibula 2 views Generic External Data Provider Start: 12-06-2024 ALL CBC WITH AUTO DIFF Generic External Data Provider Start: 12-05-2024 Ct lower extremity w /o contrast material Generic External Data Provider Start: 12-03-2024 CA ECHO DOPPLER COMPLETE Generic External Data Provider Start: 11-30-2024 [facility] APTT Generic Ex ternal Data Provider Start: 11-30-2024 SRMCOH PROTHROMBIN T MARISA INR W/O COUM Generic External Data Provider Start: 11-30-2024 Follow-up visit OCTAVIANO SHIPMAN Start: 11-19-2024 Cyclic citrullinated peptide antibody DEMETRA PORTER Comment on above: Result Comment: Interpretation-------- <3 Negative >=3 Positive Performed By: #### 2 [id number], [id number] #### [facility] ([id number]) [address], [address] [place] [address] Start: 08-21-2024 Gluc bld gluc mntr d ev cleared fda spec home use Zeyad Tate MD Work Phone: Start: 07-09-2024 Follow-up visit OCTAVIANO SHIPMAN Start: 06-11-2024 Follow-up visit OCTAVIANO ROAROBERTO Start: 05-14-2024 Follow-up visit OCTAVIANO ROAROBERTO Start: 04-13-2024 Adult depression screening assessment Zen Flores DO [facility] Phone: Start: 03-26-2024 Adult depression screening assessment Zen Flores DO [facility] Phone: Start: 02-09-2024 Follow-up visit Follow-up ZEN FLORES Start: 02-09-2024 Adult depression screening assessment Demetra Porter [employer] Work Phone: Start: 12-05-2023 Adult depression screening assessment Demetra Porter [employer] Work Phone: Start: 07-12-2023 Adult depression screening assessment Zne Flores DO [facility] Phone: Start: 06-30-2023 Diabetic retinal eye exam Zen Flores DO [facility] Phone: Start: 05-31-2022 Excision of Left Geovanny t Muscle, Open Approach RADHA BRANNON Start: 05-31-2022 Excision of Left Geovanny t Subcutaneous Tissue and Fascia, Open Approach RADHA BRANNON Start: 05-31-2022 Resection of Right Metatarsal, Open Approach RADHA BRANNON Start: 05-21-2022 History of cholecystectomy History of cholecystectomy Zen Flores Pomelo Work Phone: Start: 05-21-2022 History of coronary artery bypass grafting History of coronary artery bypass surgery Zen Flores DO Work Phone: Start: 05-21-2022 History of placement of stent for coronary artery disease History of coronary artery stent placement Zen Flores DO Work Phone: Start: 05-05-2022 Microscopic examinat ion of blood, culture RADHA BRANNON Comment on above: Performed By: #### B [id number] ####[facility] [id number] [place], [place] [address]Uy. Abiel Clement Start: 03-11-2022 Detachment at Left F oot, Partial 4th Ray, Open Approach RADHA [facility] Start: 03-11-2022 Division of Left Geovanny t Subcutaneous Tissue and Fascia, Percutaneous Approach RADHA [facility] Start: 03-11-2022 Division of Left Low er Leg Tendon, Open Approach RADHA [facility] Start: 03-11-2022 EXC LT METATRSL SSMD BNE 1ST TOE OP RADHA [facility] Start: 03-11-2022 Detachment at Left F oot, Partial 4th Ray, Open Approach RADHA [facility] Start: 03-11-2022 Division of Left Low er Leg Tendon, Open Approach RADHA [facility] Start: 03-11-2022 EXC LT METATRSL SSMD BNE 1ST TOE OP ARDHA [facility] Start: 03-11-2022 Excision of Left Geovanny t Subcutaneous Tissue and Fascia, Open Approach RADHA [facility] Start: 07-01-2020 SUPPLEMENT LUMBAR VERTEBRA WITH SYNTH SUB, PERC APPROACH CHILANGO MARTINEZ Start: 06-30-2020 Antibody screen REFERRE D SELF Comment on above: Performed By: #### 8 [id number] #### [address] Plan of Treatment Date Care Activity Detail Author Start: 09-17-2029 DTaP,Tdap and Td Vaccines (2 - Td or Tdap) DTaP,Tdap and Td Vaccines (2 - Td or Tdap) [facility] Start: 11-19-2025 Adult BMI Screening Adult BMI Screening [facility] Start: 09-19-2025 Screening for malignant neoplasm of breast Mammogram [facility] Comment on above: Postponed from 1999 (Patient Refus ed) Start: 09-19-2025 Screening for malignant neoplasm of colon Colorectal Cancer Screening [facility] Comment on above: Postponed from 1959 (Patient Refus ed) Start: 09-16-2025 End: 09-16-2025 Patient encounter procedure 09/16/2025 1:15 PM EST Office Visit [facility] [address] [place] [address] Rudolph Hurt MD [address] [place] [address] [facility] Start: 07-02-2025 Hemoglobin A1c measurement Diabetes: Hemoglobin A1C [facility] Start: 06-11-2025 Pneumococcal Vaccine: 65+ Years (3 of 3 - PCV20 or PCV21) Pneumococcal Vaccine: 65+ Years (3 of 3 - PCV20 or PCV21) [facility] Start: 05-06-2025 Influenza vaccination [facility] Start: 04-13-2025 Adult BMI Screening Adult BMI Screening [facility] Start: 04-13-2025 Depression Screening Depression Screening [facility] Start: 04-13-2025 Tobacco Screening Tobacco Screening [facility] Start: 04-01-2025 End: 04-01-2025 Patient encounter procedure 04/01/2025 2:10 PM EDT Office Visit [facility] [address] [place] [address] Zeyad Tate MD [address] [place] [address] [facility] Start: 03-27-2025 Urine screening for protein Diabetes: Urine Protein Screening [facility] Start: 03-26-2025 Adult BMI Screening Adult BMI Screening [facility] Start: 03-26-2025 Depression Screening Depression Screening [facility] Start: 03-26-2025 Tobacco Screening Tobacco Screening [facility] Start: 03-14-2025 End: 03-14-2025 Patient encounter procedure [facility] Comment on above: Arrived Start: 02-19-2025 Hemoglobin A1c measurement Diabetes: Hemoglobin A1C [facility] Start: 02-09-2025 Screening for malignant neoplasm of colon Colonoscopy [facility] Comment on above: Postponed from 11/19/2022 (Patient Refus ed) Start: 02-09-2025 Tobacco Screening Tobacco Screening [facility] Start: 02-08-2025 Adult BMI Screening Adult BMI Screening [facility] Start: 02-08-2025 Depression Screening Depression Screening [facility] Start: 02-08-2025 Tobacco Screening Tobacco Screening [facility] Start: 01-15-2025 End: 01-15-2027 NM Heart Perfusion W single state of exercise Stress test with myocardial perfusion Cardiac Nuclear Medicine Routine Chest pain at rest Coronary artery disease involving [place] coronary artery of [place] heart without angina pectoris ([facility]) Expected: 01/15/2025 (Approximate), Expires: 01/15/2027 [facility] Comment on above: Expected: 01/15/2025 (Approximate), Expi res: 01/15/2027 Start: 12-31-2024 End: 12-31-2024 Patient encounter procedure [facility] Comment on above: Type 1 diabetes mellitus with hyperglyce matias (HCC) ([facility]) Start: 12-20-2024 End: 11-19-2025 CBC W Auto Differential panel - Blood CBC auto differential Lab Routine Rheumatoid arthritis involving multiple sites, unspecified whether rheumatoid factor present ([facility]) Long-term use of leflunomide therapy Expected: 12/20/2024 (Approximate), Expires: 11/19/2025 [facility] Comment on above: Expected: 12/20/2024 (Approximate), Expi res: 11/19/2025 Start: 12-20-2024 End: 11-19-2025 Comprehensive metabolic 2000 panel - Serum or Plasma Comprehensive metabolic panel Lab Routine Rheumatoid arthritis involving multiple sites, unspecified whether rheumatoid factor present ([facility]) Long-term use of leflunomide therapy Expected: 12/20/2024 (Approximate), Expires: 11/19/2025 [facility] Comment on above: Expected: 12/20/2024 (Approximate), Expi res: 11/19/2025 Start: 12-19-2024 End: 12-19-2024 Patient encounter procedure 12/19/2024 3:00 PM EDT Office Visit [facility] Department of [facility] [address] [id number] Collin Saba MD [address] [address] [facility] Department of [facility] Start: 12-11-2024 End: 12-11-2024 Patient encounter procedure 12/11/2024 1:50 PM EDT Office Visit [facility] [address] [place] [address] Zeyad Tate MD [address] [place] [address] [facility] Start: 12-10-2024 End: 12-10-2024 Patient encounter procedure [facility] Comment on above: Arrived Start: 12-04-2024 Adult BMI Screening Adult BMI Screening [facility] Start: 12-04-2024 Depression Screening Depression Screening [facility] Start: 12-04-2024 Tobacco Screening Tobacco Screening [facility] Start: 12-03-2024 End: 11-19-2025 CBC W Auto Differential panel - Blood CBC auto differential Lab Routine Rheumatoid arthritis involving multiple sites, unspecified whether rheumatoid factor present ([facility]) Long-term use of leflunomide therapy Expected: 12/03/2024 (Approximate), Expires: 11/19/2025 [facility] Comment on above: Expected: 12/03/2024 (Approximate), Expi res: 11/19/2025 Start: 12-03-2024 End: 11-19-2025 Comprehensive metabolic 2000 panel - Serum or Plasma Comprehensive metabolic panel Lab Routine Rheumatoid arthritis involving multiple sites, unspecified whether rheumatoid factor present ([facility]) Long-term use of leflunomide therapy Expected: 12/03/2024 (Approximate), Expires: 11/19/2025 [facility] Comment on above: Expected: 12/03/2024 (Approximate), Expi res: 11/19/2025 Start: 11-27-2024 End: 11-27-2024 Patient encounter procedure 11/27/2024 1:40 PM EDT Office Visit [facility] [address] [place] [address] Zeyad Tate MD [address] [place] [address] [facility] Start: 11-19-2024 End: 11-19-2025 C-reactive protein C-reactive protein Lab Routine Rheumatoid arthritis involving multiple sites, unspecified whether rheumatoid factor present ([facility]) Expected: 11/19/2024 (Approximate), Expires: 11/19/2025 [facility] Comment on above: Expected: 11/19/2024 (Approximate), Expi res: 11/19/2025 Start: 11-19-2024 End: 11-19-2025 CBC W Auto Differential panel - Blood [facility] Comment on above: Expected: 11/19/2024 (Approximate), Expi res: 11/19/2025 Start: 11-19-2024 End: 11-19-2025 Comprehensive metabolic 2000 panel - Serum or Plasma [facility] Comment on above: Expected: 11/19/2024 (Approximate), Expi res: 11/19/2025 Start: 11-19-2024 End: 11-19-2025 Cyanocobalamin vitamin b-12 Vitamin B12 Lab Routine Rheumatoid arthritis involving multiple sites, unspecified whether rheumatoid factor present ([facility]) Expected: 11/19/2024, Expires: 11/19/2025 [facility] Comment on above: Expected: 11/19/2024, Expires: Start: 11-19-2024 End: 11-19-2025 Erythrocyte sedimentation rate Erythrocyte Sedimentation Rate (ESR) Lab Routine Rheumatoid arthritis involving multiple sites, unspecified whether rheumatoid factor present ([facility]) Expected: 11/19/2024 (Approximate), Expires: 11/19/2025 [facility] Comment on above: Expected: 11/19/2024 (Approximate), Expi res: 11/19/2025 Start: 11-19-2024 Hemoglobin A1c measurement Diabetes: Hemoglobin A1C [facility] Start: 11-19-2024 End: 11-19-2025 Thyrotropin [Units/volume] in Serum or Plasma [facility] Comment on above: Expected: 11/19/2024, Expires: Start: 11-19-2024 End: 11-19-2025 Vitamin D 25 hydroxy Vitamin D 25 hydroxy Lab Routine Rheumatoid arthritis involving multiple sites, unspecified whether rheumatoid factor present ([facility]) Expected: 11/19/2024, Expires: 11/19/2025 [employer] Work Phone: Comment on above: Expected: 11/19/2024, Expires: Start: 11-19-2024 End: 11-19-2025 XR Bones Limited Survey Views [facility] Comment on above: Expected: 11/19/2024, Expires: Start: 11-19-2024 End: 11-19-2025 XR Chest PA and Lateral [facility] Comment on above: Expected: 11/19/2024, Expires: Start: 09-19-2024 End: 09-19-2025 Basic metabolic 1998 panel - Serum or Plasma Basic metabolic panel Lab Routine Encounter for long-term (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 medications Expected: 09/19/2024 (Approximate), Expires: 09/19/2025 [facility] Comment on above: Expected: 09/19/2024 (Approximate), Expi res: 09/19/2025 Start: 09-19-2024 End: 09-19-2025 CBC W Auto Differential panel - Blood CBC and differential Lab Routine Encounter for long-term (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 medications Expected: 09/19/2024 (Approximate), Expires: 09/19/2025 [facility] Comment on above: Expected: 09/19/2024 (Approximate), Expi res: 09/19/2025 Start: 09-19-2024 End: 09-19-2025 Erythrocyte sedimentation rate Sedimentation rate, automated Lab Routine Rheumatoid arthritis involving multiple sites with positive rheumatoid factor ([facility]) Expected: 09/19/2024 (Approximate), Expires: 09/19/2025 [facility] Comment on above: Expected: 09/19/2024 (Approximate), Expi res: 09/19/2025 Start: 09-19-2024 End: 09-19-2025 Hepatic function 2000 panel - Serum or Plasma Hepatic function panel Lab Routine Encounter for long-term (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 medications Expected: 09/19/2024 (Approximate), Expires: 09/19/2025 [facility] Comment on above: Expected: 09/19/2024 (Approximate), Expi res: 09/19/2025 Start: 09-19-2024 End: 09-19-2025 Lipid 1996 panel - Serum or Plasma Lipid panel Lab Routine Dyslipidemia ([facility]) Expected: 09/19/2024 (Approximate), Expires: 09/19/2025 [facility] Comment on above: Expected: 09/19/2024 (Approximate), Expi res: 09/19/2025 Start: 09-19-2024 End: 09-19-2025 Rheumatoid factor [Units/volume] in Serum or Plasma Rheumatoid factor Lab Routine Rheumatoid arthritis involving multiple sites with positive rheumatoid factor ([facility]) Expected: 09/19/2024 (Approximate), Expires: 09/19/2025 [facility] Work Phone: Comment on above: Expected: 09/19/2024 (Approximate), Expi res: 09/19/2025 Start: 09-19-2024 End: 09-19-2024 Patient encounter procedure 09/19/2024 11:30 AM EST Office Visit [facility] [address] [place] [phone] Rudolph Hurt MD [address] [place] [phone] Arrived [facility] Comment on above: Arrived Start: 08-21-2024 End: 08-21-2024 Patient encounter procedure 08/21/2024 1:20 PM EST Office Visit [facility] [address] [place] [phone] Zeyad Tate MD [address] [place] [address] Arrived [facility] Comment on above: Arrived Start: 07-12-2024 Adult BMI Screening Adult BMI Screening [facility] Start: 07-12-2024 Depression Screening Depression Screening [facility] Start: 07-12-2024 Medicare Annual Wellness (AWV) Medicare Annual Wellness (AWV) [facility] Start: 07-12-2024 Tobacco Screening Tobacco Screening [facility] Start: 06-30-2024 Glaucoma screening Diabetic Ophthalmology Exam [facility] Start: 05-06-2024 Influenza vaccination [facility] Start: 04-17-2024 End: 04-17-2024 Patient encounter procedure 04/17/2024 11:45 AM EDT Office Visit [facility] [address] [address] Collin Saba MD [address] [address] [facility] Start: 04-13-2024 End: 04-13-2024 Patient encounter procedure 04/13/2024 11:30 AM EDT Office Visit [facility] [address] [place] [address] Zen Flores, [address] [place] [address] [facility] Start: 03-26-2024 End: 03-26-2024 Patient encounter procedure 03/26/2024 1:30 PM EDT Office Visit [facility] [address] [place] [address] Zen Flores DO [address], [place] [address] [facility] Start: 03-19-2024 End: 03-19-2024 Patient encounter procedure 03/19/2024 2:15 PM EDT Office Visit [facility] [address] [place] [address] Zen Flores, DO [address] [place] [address] [facility] Start: 11-20-2023 Screening for malignant neoplasm of breast Mammogram [facility] Comment on above: Postponed from 11/19/2022 (Patient Refus ed) Start: 11-20-2023 Screening for malignant neoplasm of colon Colonoscopy [facility] Comment on above: Postponed from 11/19/2022 (Patient Refus ed) Start: 11-10-2023 End: 11-10-2023 Patient encounter procedure 11/10/2023 1:50 PM EST [facility] [address] [place] [address] Zen Flores, DO [address], [place] [address] [facility] Start: 09-13-2023 Diabetic foot examination Diabetic Foot Exam [facility] Start: 11-19-2022 Screening for malignant neoplasm of breast Mammogram [facility] Start: 11-19-2022 Screening for malignant neoplasm of colon Colonoscopy [facility] Start: 09-30-2020 Hemoglobin A1c measurement Diabetes: Hemoglobin A1C [facility] Start: 12-20-2009 Administration of varicella zoster vaccine Zoster (Shingles) Vaccine (1 of 2) [facility] Start: 1999 Screening for malignant neoplasm of breast Mammogram [facility] Start: 12-20-1989 Screening for malignant neoplasm of cervix [facility] Start: 12-20-1980 Screening for malignant neoplasm of cervix Pap Smear [facility] Start: 12-20-1977 Adult BMI Follow Up Plan Adult BMI Follow Up Plan [facility] Start: 12-20-1969 Glaucoma screening Diabetes: Retinopathy Screening [facility] Start: 1959 Screening for malignant neoplasm of colon [facility] End: 04-13-2025 Basic metabolic 2000 panel - Serum or Plasma Basic Metabolic Panel Lab Routine 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 ([facility]) 1 Occurrences starting 04/13/2024 until 04/13/2025 [employer] Phone: Comment on above: 1 Occurrences starting 04/13/2024 until 04/13/2025 C reactive protein [Mass/volume] in Serum or Plasma C-reactive protein Lab Routine Rheumatoid arthritis involving multiple sites, unspecified whether rheumatoid factor present ([facility]) 11/19/2024 2:38 PM EDT [place] End: 03-26-2025 CBC panel - Blood by Automated count CBC Lab Routine Other fatigue 1 Occurrences starting 03/26/2024 until 03/26/2025 [place] Comment on above: 1 Occurrences starting 03/26/2024 until 03/26/2025 End: 11-19-2025 CCP Ab CCP Ab Lab Routine Rheumatoid arthritis involving multiple sites, unspecified whether rheumatoid factor present ([facility]) 1 Occurrences starting 11/19/2024 until 11/19/[address] [facility] Comment on above: 1 Occurrences starting 11/19/2024 until 11/19/2025 Cobalamin (Vitamin B 12) [Mass/volume] in Serum or Plasma Vitamin B12 Lab Routine Rheumatoid arthritis involving multiple sites, unspecified whether rheumatoid factor present ([facility]) 11/19/2024 2:38 PM EDT [place] End: 03-26-2025 Comprehensive metabolic 2000 panel - Serum or Plasma Comprehensive metabolic panel Lab Routine Primary hypertension 1 Occurrences starting 03/26/2024 until 03/26/2025 [place] Comment on above: 1 Occurrences starting 03/26/2024 until 03/26/2025 Cyclic citrullinated peptide IgG Ab [Units/volume] in Serum or Plasma CCP Ab Lab Routine Rheumatoid arthritis involving multiple sites, unspecified whether rheumatoid factor present ([facility]) 11/19/2024 2:38 PM EDT [place] End: 03-26-2025 Drug Screen, Urine Drug Screen, Urine Lab Routine Medication monitoring encounter 1 Occurrences starting 03/26/2024 until 03/26/2025 [employer] Work Phone: Comment on above: 1 Occurrences starting 03/26/2024 until 03/26/2025 End: 04-03-2025 Drug Screen, Urine Drug Screen, Urine Lab Routine Medication monitoring encounter Rheumatoid arthritis involving multiple sites, unspecified whether rheumatoid factor present ([facility]) 1 Occurrences starting 04/03/2024 until 04/03/2025 [employer] Work Phone: Comment on above: 1 Occurrences starting 04/03/2024 until 04/03/2025 Erythrocyte sedimentation rate by Photometric method Erythrocyte Sedimentation Rate (ESR) Lab Routine Rheumatoid arthritis involving multiple sites, unspecified whether rheumatoid factor present ([facility]) 11/19/2024 2:38 PM EDT [place] End: 03-26-2025 Microalbumin - Albumin: Creatinine Urine Ratio Microalbumin - Albumin: Creatinine Urine Ratio Lab Routine Type 1 diabetes mellitus with diabetic polyneuropathy ([facility]) 1 Occurrences starting 03/26/2024 until 03/26/2025 [place] Comment on above: 1 Occurrences starting 03/26/2024 until 03/26/2025 Pulmonary function report Pulmonary Function Test Imaging Routine SOB (shortness of breath) on exertion Ordered: 01/15/2025 [facility] [employer] Work Phone: Comment on above: Ordered: 01/15/2025 End: 11-19-2025 Rheumatoid factor Rheumatoid factor Lab Routine Rheumatoid arthritis involving multiple sites, unspecified whether rheumatoid factor present ([facility]) 1 Occurrences starting 11/19/2024 until 11/19/2025 [place] Comment on above: 1 Occurrences starting 11/19/2024 until 11/19/2025 Rheumatoid factor [Units/volume] in Serum by Nephelometry Rheumatoid factor Lab Routine Rheumatoid arthritis involving multiple sites, unspecified whether rheumatoid factor present ([facility]) 11/19/2024 2:38 PM EDT [place] Vitamin D+Metabolite s [Mass/volume] in Serum or Plasma Vitamin D 25 hydroxy Lab Routine Rheumatoid arthritis involving multiple sites, unspecified whether rheumatoid factor present ([facility]) 11/19/2024 2:38 PM EDT [facility] Immunizations Immunization Date Immunization Notes Care Provider Daisha velarde 07-12-2023 influenza, injectabl e, quadrivalent, preservative free Zen Furlong DO Work Phone: [facility] 07-12-2023 influenza virus vacc ine, unspecified formulation Zen Furlong DO Work Phone: [facility] 08-05-2022 influenza, injectabl e, quadrivalent, preservative free Zen Furlong DO Work Phone: [facility] 09-01-2021 Pfizer Purple Cap SARS-CoV-2 Vaccination Zeyad Tate MD Work Phone: [facility] 05-21-2021 influenza, injectabl e, quadrivalent, preservative free Zen Furlong DO Work Phone: [facility] 11-27-2020 Pfizer Purple Cap SARS-CoV-2 Vaccination Zeyad Tate MD Work Phone: [facility] 11-06-2020 COVID-19, mRNA, LNP- S, PF, 30mcg/0.3mL Dose Zen Furlong DO Work Phone: [facility] 11-03-2020 SARS-COV-2 (COVID-19 ) Vaccine, Unspecified Zen Furlong DO Work Phone: [facility] 06-11-2020 pneumococcal conjuga te vaccine, 13 valent Zen Furlong DO Work Phone: [facility] 06-05-2020 influenza virus vacc ine, unspecified formulation Zen Furlong DO Work Phone: [facility] 06-05-2020 pneumococcal vaccine , unspecified formulation Zen Furlong DO Work Phone: [facility] 05-20-2020 influenza, injectabl e, quadrivalent, preservative free Zen Furlong DO Work Phone: [facility] 05-20-2020 pneumococcal polysaccharide vaccine, 23 valent Zen Flores DO Work Phone: [facility] 09-17-2019 tetanus toxoid, redu timmy diphtheria toxoid, and acellular pertussis vaccine, adsorbed Zen Flores DO Work Phone: [facility] 06-08-2019 influenza, injectabl e, quadrivalent, preservative free Zen Flores DO Work Phone: [facility] 06-04-2019 influenza, seasonal, injectable Zeyad Tate MD Work Phone: [facility] 11-28-2012 tetanus toxoid, unspecified formulation Zen Flores DO Work Phone: [facility] Payers Date Payer Category Payer Medicaid [id number] 2022 Medicaid [id number] 2021 Medicare AETNA MEDICARE A ETNA MEDICARE PLAN (HMO) [id number] 2021-Present [id number] [place] [id number] 2021 Medicare HMO A[employer] MEDICARE [id number] 1959 Unknown [id number] 2.16.840.1.810607.3.579.2. 647 1959 Unknown [id number] 2.16.840.1.006718.3.579.2. 647 1959 Unknown [id number] 2.16.840.1.523543.3.579.2. 593 1959 Unknown [id number] 2.16.840.1.719243.3.579.2. 593 1959 Unknown [id number] 2.16.840.1.694332.3.579.2. 593 1959 Unknown [id number] 2.16.840.1.568820.3.579.2. 593 1959 Unknown [id number] 2.16.840.1.603689.3.579.2. 593 1959 Unknown [id number] 2.16.840.1.218971.3.579.2. 593 1959 Unknown [id number] 2.16.840.1.007402.3.579.2. 593 1959 Unknown [id number] 2.16.840.1.916773.3.579.2. 593 1959 Unknown [id number] 2.16.840.1.958008.3.579.2. 593 1959 Unknown [id number] 2.16.840.1.745827.3.579.2. 593 1959 Unknown [id number] 2.16.840.1.503269.3.579.2. 593 1959 Unknown [id number] 2.16.840.1.020132.3.579.2. 593 1959 Unknown [id number] 2.16.840.1.284239.3.579.2. 593 1959 Unknown [id number] 2.16.840.1.012169.3.579.2. 593 1959 Unknown [id number] 2.16.840.1.425358.3.579.2. 593 1959 Unknown [id number] 2.16.840.1.348629.3.579.2. 593 1959 Unknown [id number] 2.16.840.1.652097.3.579.2. 593 1959 Unknown [id number] 2.16.840.1.200221.3.579.2. 593 1959 Unknown [id number] 2.16.840.1.672012.3.579.2. 593 1959 Unknown [id number] 2.16.840.1.786480.3.579.2. 593 1959 Unknown [id number] 2.16.840.1.465513.3.579.2. 593 1959 Unknown [id number] 2.16.840.1.230987.3.579.2. 593 1959 Unknown [id number] 2.16.840.1.904564.3.579.2. 593 1959 Unknown [id number] 2.16.840.1.747445.3.579.2. 593 1959 Unknown [id number] 2.16.840.1.246677.3.579.2. 593 1959 Unknown [id number] 2.16.840.1.751332.3.579.2. 593 1959 Unknown [id number] 2.16.840.1.449727.3.579.2. 593 1959 Unknown [id number] 2.16.840.1.962334.3.579.2. 593 1959 Unknown [id number] 2.16.840.1.338343.3.579.2. 1286 1959 Unknown [id number] 2.16.840.1.770841.3.579.2. 1285 1959 Unknown [id number] 2.16.840.1.897932.3.579.2. 1285 1959 Unknown [id number] 2.16.840.1.396361.3.579.2. 1285 1959 Unknown [id number] 2..840.1.071076.3.579.2. 1285 1959 Unknown [id number] 2..840.1.545403.3.579.2. 1285 1959 Unknown [id number] 2..840.1.454324.3.579.2. 1285 1959 Unknown [id number] 2.840.1.694370.3.579.2. 1285 1959 Unknown [id number] 2.840.1.972212.3.579.2. 1285 1959 Unknown [id number] 2.840.1.196489.3.579.2. 1285 1959 Unknown [id number] 2..840.1.334136.3.579.2. 1285 1959 Unknown [id number] 2.840.1.028822.3.579.2. 1285 1959 Unknown [id number] 840.1.713765.3.579.2. 1285 1959 Unknown [id number] 2..840.1.825147.3.579.2. 1258 1959 Unknown [id number] 2..840.1.117008.3.579.2. 1258 1959 Unknown [id number] 2..840.1.355131.3.579.2. 1258 1959 Unknown [id number] 2..840.1.323770.3.579.2. 1258 1959 Unknown [id number] 2..840.1.854397.3.579.2. 1259 1959 Unknown [id number] 2..840.1.857613.3.579.2. 1259 1959 Unknown [id number] 2..840.1.570704.3.579.2. 1259 1959 Medicare [id number] 1960 Self-pay Private Health Insurance MEB [id number] Unknown [id number] 2..840.1.594215.19 Unknown [id number] 2.16.840.1.757432.3.579.2. 531 Social History Date Type Detail Facility Start: 07-01-2024 End: 09-12-2024 Sex Assigned At [facility] Start: 07-27-2022 End: 07-01-2024 Tobacco smoking status [facility] Ex-smoker [facility] Start: 09-05-1975 End: 06-06-1997 History of tobacco use Current smoker [facility] Start: 09-05-1975 End: 06-06-1997 History of tobacco use Cigarette Smoker [facility] Start: 07-27-2022 End: 07-01-2024 Tobacco use and exposure Smokeless tobacco non-user [facility] Start: 08-14-2024 End: 03-14-2025 Alcoholic beverage intake Ex-drinker (finding) [facility] Start: 07-01-2024 End: 09-12-2024 History of Social function [facility] Start: 1960 Sex assigned at Not on file [facility] Start: 09-15-2022 Sexual orientation Heterosexual (finding) [facility] How often do you nee d to have someone help you when you read instructions, pamphlets, or other written material from your doctor or pharmacy [SILS] Never [facility] Do you belong to any clubs or organizations such as sabianism groups, unions, fraternal or athletic groups, or school groups? No [facility] Are you now , , , , never or living with a partner? [facility] How often to you hav e a drink containing alcohol? Never [facility] How hard is it for y ou to pay for the very basics like food, housing, medical care, and heating Not very hard [facility] Do you feel stress - tense, restless, nervous, or anxious, or unable to sleep at night because your mind is troubled all the time - these days [OSQ] To some extent [facility] (I/We) worried wheth er (my/our) food would run out before (I/we) got money to buy more. Sometimes true [facility] The food that (I/we) bought just didn't last, and (I/we) didn't have money to get more. Never true [facility] Do you belong to any clubs or organizations such as sabianism groups, unions, fraternal or athletic groups, or school groups? Yes [facility] Start: 1960 Sex Assigned At Female [facility] Start: 09-15-2022 Gender identity Identifies as female gender (finding) [facility] How hard is it for y ou to pay for the very basics like food, housing, medical care, and heating Somewhat hard [facility] Start: 09-18-2019 End: 12-08-2024 Sex Female (finding) [facility] Tobacco smoking stat [facility] Unknown if ever smoked [facility] Work Phone: Medical Equipment Procedure Code Equipment Code Equipment Origin al Text Equipment Identifier Dates End: 09-19-2024 Clinical Notes 07-27-2021 to 03-14-2025 Rudolph Hurt MD - 03/14/2025 2:04 PM Jon Hurt MD - 03/14/2025 2:04 PM Jon Hurt MD - 03/14/2025 2:04 PM Jon Hurt MD - 03/14/2025 2:04 PM EDT Note Date & Type Note Facility 03-14-2025 History of Present illness Narrative Associated Problem(s): Type I diabetes mellitus with polyneuropathy (HCC) Symptoms stable and use norco PRN. Associated Problem(s): Type 1 diabetes mellitus with hyperglycemia (HCC) BS stable and follow with endo. Associated Problem(s): Rheumatoid arthritis involving multiple sites with positive rheumatoid factor (HCC) Continued pain and deformity. Follow with rheum. Associated Problem(s): POTS (postural orthostatic tachycardia syndrome) Symptoms stable and increase fluids. Follow with cardiology. Associated Problem(s): MDD (major depressive disorder), recurrent episode, moderate (HCC) Symptoms worse and increase cymbalta to 90 mg daily. Associated Problem(s): Coronary artery disease involving [place] coronary artery of [place] heart without angina pectoris Follow with cardiology. Images from the original note were not included. Subjective Patient ID: Monica Acosta is a 64 y.o. female who presents for Follow-up (3m f/up/Depression worse). Follow up depression, neuropathy, DM, RA, POTS, and CAD. Depression worse over the past few weeks. Down, sad, and no motivation. Not want to be around others. Garza and irritable. Snapping at others. Previously on 90 mg cymbalta but down to 60 mg and mood worse. Neuropathy stable and mild pain and burning in feet. Taking norco PRN and helps. DM controlled and following with endo. Seen by rheumatology and medication stable. Continued pain in multiple joints. Following with cardiology for CAD and stable. POTS stable and occasional heart racing. Review of Systems Respiratory: Negative [...] Assessment/Plan Problem List Items Addressed This Visit Coronary artery disease involving [place] coronary artery of [place] heart without angina pectoris Follow with cardiology. Rheumatoid arthritis involving multiple sites with positive rheumatoid factor (HCC) Continued pain and deformity. Follow with rheum. Relevant Medications celecoxib (CeleBREX) 200 MG capsule HYDROcodone-acetaminophen ([place]) 5-325 MG tablet Type 1 diabetes mellitus with hyperglycemia (HCC) BS stable and follow with endo. Type I diabetes mellitus with polyneuropathy (HCC) Symptoms stable and use norco PRN. POTS (postural orthostatic tachycardia syndrome) Symptoms stable and increase fluids. Follow with cardiology. MDD (major depressive disorder), recurrent episode, moderate (HCC) - Primary Symptoms worse and increase cymbalta to 90 mg daily. Relevant Medications DULoxetine (Cymbalta) [address] capsule documented in this encounter [facility] 01-15-2025 History of Present illness Narrative Associated Problem(s): SOB (shortness of breath) on exertion Continued SOB and former smoker. Check PFTs and start albuterol PRN. Associated Problem(s): Hypersomnia Signs of MARA and check sleep study. Associated Problem(s): Coronary artery disease involving [place] coronary artery of [place] heart without angina pectoris (CMS/HCC) Check stress test and follow with cardiology. Associated Problem(s): Chest pain at rest Developed pain with exertion and prior 3 vessel CABG. Check lexiscan cardiolyte stress test. Follow with cardiology. Images from the original note were not included. Subjective Patient ID: Monica Acosta is a 64 y.o. female who presents for Follow-up (Breathing trouble at night low pulse ox). C/o SOB and chest tightness over the past few weeks. Developed SOB with exertion and severe fatigue with exertion. Develops chest tightness and needs to stop. Hard to stay active due to symptoms. No cough. Former smoker and smoked about 1 - 1 1/2 PPD x 20 plus years but quit in 1996. No history of COPD. History of CAD and 3 vessel CABG in 2013. Several years since last stress test. Echo normal in November and scheduled with cardiology in February. Notice hypoxia and SOB at night. Sleep study ordered last visit and need to reschedule. Review of Systems Respiratory: Positive for shortness of breath. Negative for cough and wheezing. Cardiovascular: Positive for chest pain. Negative for palpitations. Gastrointestinal: Negative for abdominal pain, diarrhea, [...] Assessment/Plan Problem List Items Addressed This Visit Coronary artery disease involving [place] coronary artery of [place] heart without angina pectoris (CMS/HCC) Check stress test and follow with cardiology. Relevant Orders Stress test with myocardial perfusion Hypersomnia Signs of MARA and check sleep study. SOB (shortness of breath) on exertion Continued SOB and former smoker. Check PFTs and start albuterol PRN. Relevant Medications albuterol HFA 90 mcg/act inhaler Other Relevant Orders Pulmonary Function Test Chest pain at rest - Primary Developed pain with exertion and prior 3 vessel CABG. Check lexiscan cardiolyte stress test. Follow with cardiology. Relevant Orders Stress test with myocardial perfusion documented in this encounter [facility] 12-31-2024 History of Present illness Narrative Monica Acosta is a 64 y.o. female Zeyad Tate MD presents with chief complaint of Diabetes and Follow-up HPI: History of Present Illness The patient is a 64-year-old female who presents for a follow-up of type 1 diabetes. She is currently using a [employer] insulin pump with basal rates set at 0.95 units per hour from 12 AM, 1.3 units per hour from 8 AM, 1.35 units per hour from 12 PM, and 1.1 units per hour from 10 PM. Her carbohydrate ratio ranges from 5.5 to 6.5, and she is on a carb ratio for 75. The plan is to switch her to a T-slim pump as she prefers it. IM: 08/2024 follow up 08/21 with a [...] the office 7.8. had back surgery in [place] IM: 03/2020 follow up from type 1 [...] saw her today with tele medicine with [facility]. HPI: 09/24 New patient sent from Dr. [...] SUBJECTIVE: MEDICATIONS: Current Outpatient Medications Medication Instructions aspirin 81 mg, Daily atenolol (TENORMIN) 50 mg, Daily atorvastatin (LIPITOR) 80 mg, Daily celecoxib (CELEBREX) 200 mg, Oral, 2 times daily DULoxetine (CYMBALTA) 30 mg, 2 times daily DULoxetine (CYMBALTA) 60 mg, Oral, Daily, Do not crush or chew. folic acid (FOLVITE) 1 mg, Oral, Daily gabapentin (Neurontin) 100 MG capsule 1 capsule, 3 times daily HYDROcodone-acetaminophen ([place]) 5-325 MG tablet 1 tablet, Oral, 4 times daily PRN Insulin Aspart (NOVOLOG) 50 Units, Injection, Daily insulin aspart (NovoLOG, Fiasp) 100 UNIT/ML patient supplied pump Continuous leflunomide (ARAVA) 10 mg, Daily levothyroxine (SYNTHROID, LEVOXYL) 75 mcg, Oral, Daily before breakfast methocarbamol (ROBAXIN) 500 mg, Oral, Every 8 hours PRN methotrexate 2.5 MG tablet 4 tabs PO once a week nitroglycerin (NITROSTAT) 0.4 mg, Every 5 min PRN ALLERGIES: Allergies Allergen Reactions Wound Dressing Adhesive BLISTERS (IF ON FOR TOO LONG) Bee Venom Other reaction(s): TROUBLE BREATHING Hydromorphone Lisinopril Other Other Reaction(s): LOW BLOOD PRESSURE Past Medical History: Diagnosis Date Body mass index (BMI) 31.0-31.9, adult CAD (coronary artery disease) ([facility]) Current use of insulin ([facility]) Diabetes ([facility]) Dietary counseling and surveillance Encounter for fitting and adjustment of insulin pump Essential (primary) hypertension ([facility]) Fracture of right hand Heart problem High cholesterol ([facility]) History of open heart surgery HTN (hypertension) ([facility]) Hypertension ([facility]) 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 ([facility]) Mixed hyperlipidemia ([facility]) Obesity, unspecified PAD (peripheral artery disease) ([facility]) Personal history of other medical treatment Triple Bypass POTS (postural orthostatic tachycardia syndrome) Presence of insulin pump (external) (internal) Rheumatoid arthritis ([facility]) Type 1 diabetes mellitus with other circulatory complications Vitamin D deficiency, unspecified Past Surgical History: Procedure Laterality Date BACK SURGERY fall CARDIAC SURGERY CATARACT EXTRACTION Bilateral SECTION, CLASSIC SECTION, LOW TRANSVERSE CHOLECYSTECTOMY CT ANGIOGRAM HEART CORONARY 06/30/2020 CT ANGIOGRAM TAVR FOOT SURGERY FRACTURE SURGERY GALLBLADDER SURGERY HERNIA REPAIR ORTHOPEDIC SURGERY [...] Lab Results Component Value Date HGBA1C 7.5 12/31/2024 HGBA1C 7.5 08/21/2024 Lab Results Component Value Date GLU 166 12/31/2024 GLU 189 (H) 11/19/2024 GLU 189 (H) 11/19/2024 Visit Vitals BP 110/60 Pulse 82 Resp 18 Ht 5' 7 Wt 191 lb SpO2 97% BMI 29.91 kg/m Smoking Status Former BSA 2.02 m ASSESSMENT AND PLAN: Assessment/Plan Diagnoses and all orders for this visit: Type 1 diabetes mellitus with hyperglycemia (HCC) ([facility]) - POCT glucose manually resulted - POCT glycosylated hemoglobin (Hb A1C) docked device Essential (primary) hypertension ([facility]) Vitamin D deficiency, unspecified Dietary counseling and surveillance Mixed hyperlipidemia (CMS/HCC) Presence of insulin pump (external) (internal) 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 Type 1 diabetes mellitus. Her A1c level is stable at 7.5, and her blood glucose level is 166. She has adjusted her basal insulin rates: 0.95 units/h at 12 AM, 1.3 units/h at 8 AM, 1.35 units/h at 12 PM, and 1.1 units/h at 10 PM. Her carbohydrate ratio remains between 5.5 and 6.5, and she is on a carb ratio for 75. The plan is to transition her to a T-slim insulin pump, which she prefers. Her sensitivity has been adjusted to 1:80 from 1:75. She will continue with her current regimen and monitor her blood glucose levels closely. Follow up in about 3 months (around 04/01/2025). Answers submitted by the patient for this visit: Diabetes Questionnaire (Submitted on 12/27/2024) Chief Complaint: Diabetes problem Diabetes type: type 1 MedicAlert ID: No blurred vision: No chest pain: No fatigue: No foot paresthesias: No foot ulcerations: No polydipsia: No polyphagia: No polyuria: No visual change: No weakness: No weight loss: No Symptom course: stable confusion: No speech difficulty: No dizziness: No nervous/anxious: No headaches: No hunger: No mood changes: No pallor: No seizures: No tremors: No sleepiness: No sweats: No blackouts: No hospitalization: No nocturnal hypoglycemia: Yes required assistance: No required glucagon: No CVA: No heart disease: Yes impotence: No nephropathy: Yes peripheral neuropathy: Yes PVD: Yes retinopathy: No CAD risks: dyslipidemia, family history, hypertension, obesity, post-menopausal, sedentary lifestyle, stress Current treatments: diet, insulin pump Treatment compliance: most of the time Dose schedule: pre-breakfast, pre-lunch, pre-dinner Given by: patient Injection sites: abdominal wall Home blood tests: 3-4 x per week Home urines: <1 x per month Monitoring compliance: poor Blood glucose trend: decreasing steadily breakfast time: after 10 am breakfast glucose level: 130-140 lunch time: 11-12 pm lunch glucose level: 110-130 dinner time: 6-7 pm dinner glucose level: 140-180 Bedtime: 8-9 pm Bedtime glucose level: 130-140 High score: >200 Overall: 140-180 Weight trend: stable Current diet: generally healthy Meal planning: carbohydrate counting Exercise: intermittently Dietitian visit: No Eye exam current: Yes Sees sports director: Yes documented in this encounter [facility] 12-27-2024 Telephone encounter Note [facility] 12-27-2024 Miscellaneous Notes documented in this encounter [facility] 12-10-2024 History of Present illness Narrative Associated Problem(s): Type I diabetes mellitus with polyneuropathy (CMS/HCC) Symptoms stable and continue neurontin. Associated Problem(s): Type 1 diabetes mellitus with hyperglycemia (HCC) (CMS/HCC) BS stable and follow with endo. Associated Problem(s): Rheumatoid arthritis involving multiple sites with positive rheumatoid factor (CMS/HCC) Continued pain and deformity. Follow with rheum. Associated Problem(s): POTS (postural orthostatic tachycardia syndrome) Occasional symptoms and increase fluids. Continue atenolol. Associated Problem(s): Hypersomnia Signs of MARA and check sleep study. Associated Problem(s): Coronary artery disease involving [place] coronary artery of [place] heart without angina pectoris (CMS/HCC) Feels worse and follow up with cardiology. Images from the original note were not included. Subjective Patient ID: Monica Acosta is a 63 y.o. female who presents for Follow-up (Chest tightness/Not feeling well). Follow up neuropathy, DM, RA, POTS, and CAD. Neuropathy stable and mild pain and burning in feet. Taking neurontin and helps. DM controlled and recent A1C 7.5. Following with endo. Seen by rheumatology and adjusted medication. C/o side effects since and feels off. Very lightheaded and fatigued. Balance off. Continued pain in multiple joints. Requests power mobility device to help get around at home. Following with cardiology for CAD and recommended stress. POTS stable and occasional heart racing. Concerned of MARA. Snores loudly and pauses during sleep. Not rested in am and tired all day. Review of Systems Respiratory: Negative for cough, [...] Assessment/Plan Problem List Items Addressed This Visit Coronary artery disease involving [place] coronary artery of [place] heart without angina pectoris (CMS/HCC) Feels worse and follow up with cardiology. Rheumatoid arthritis involving multiple sites with positive rheumatoid factor (CMS/HCC) Continued pain and deformity. Follow with rheum. Type 1 diabetes mellitus with hyperglycemia (HCC) (CMS/HCC) BS stable and follow with endo. Type I diabetes mellitus with polyneuropathy (CMS/HCC) - Primary Symptoms stable and continue neurontin. POTS (postural orthostatic tachycardia syndrome) Occasional symptoms and increase fluids. Continue atenolol. Hypersomnia Signs of MARA and check sleep study. documented in this encounter [facility] 11-30-2024 Note [facility] 11-19-2024 History of Present illness Narrative Images from the original note were not included. [id number] [id number] Date of Service: 11/19/2024 Subjective: Monica Acosta [...] chest pain 25 tablet 1 blood-glucose meter (AkimboUCH VERIO REFLECT METER) [facility] use as directed cyclobenzaprine (FLEXERIL) 10 mg [...] multiple sites, unspecified whether rheumatoid factor present ([facility]) - Vitamin D 25 hydroxy; Future - [...] or corrected. Thank you for your understanding. [facility] Dr. Collin Saba MD [id number], [address] [place] [address] Office: [phone] documented in this encounter [facility] 10-15-2024 Note [facility] 09-19-2024 History of Present illness Narrative Associated [...] vascular. Associated Problem(s): Coronary artery disease involving [place] coronary artery of [place] heart without angina pectoris (CMS/HCC) No pain [...] Return to vascular. Coronary artery disease involving [place] coronary artery of [place] heart without angina pectoris (CMS/HCC) No pain [...] MG tablet methotrexate 2.5 MG tablet HYDROcodone-acetaminophen ([place]) 5-325 MG tablet Other Relevant Orders Rheumatoid [...] Hepatic function panel documented in this encounter [facility] 08-21-2024 History of Present illness [...] the office 7.8. had back surgery in [place] IM: 03/2020 follow up from type 1 [...] saw her today with tele medicine with [facility]. HPI: 09/24 New patient sent from Dr. 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 (A [employer] PleasureStyle Tru 14 Day [place]) device Does not apply Continuous Glucose Sensor [...] Other, As needed, Use as instructed HYDROcodone-acetaminophen ([place]) 5-325 MG tablet No dose, route, or [...] (BMI) 31.0-31.9, adult CAD (coronary artery disease) ([facility]) Current use of insulin ([facility]) Diabetes ([facility]) Dietary counseling and surveillance Encounter for fitting and adjustment of insulin pump Essential (primary) hypertension ([facility]) Fracture of right hand Heart problem High cholesterol ([facility]) History of open heart surgery HTN (hypertension) ([facility] Hypertension ([facility]) longterm (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 ([facility]) Mixed hyperlipidemia ([facility]) Obesity, unspecified PAD (peripheral artery disease) ([facility]) Personal history of other medical treatment Triple Bypass POTS (postural orthostatic tachycardia syndrome) Presence of insulin pump (external) (internal) Rheumatoid arthritis ([facility]) Type 1 diabetes mellitus with other circulatory complications ([facility]) Vitamin D deficiency, unspecified Past Surgical History: [...] (CMS/HCC) Presence of insulin pump (external) (internal) longterm (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 (CMS/HCC) Encounter for fitting or adjustment of insulin pump Follow up in about 3 months (around 11/19/2024). documented in this encounter [facility] 08-13-2024 Note [facility] 07-09-2024 Note [facility] 06-11-2024 Note [facility] 05-14-2024 Note [facility] 05-01-2024 Note Chronic CHF, [facility] type. [facility] 05-01-2024 Note [facility] 05-01-2024 Note [facility] 05-01-2024 Note [facility] 04-30-2024 Note [facility] 04-30-2024 Note [facility] 04-30-2024 Note [facility] 04-30-2024 Note [facility] 04-30-2024 Miscellaneous Notes Patient is at [facility] she fell and broke both legs and will be transferring to the [place] for rehab documented in this encounter [facility] 04-30-2024 Telephone encounter Note Patient is at [facility] she fell and broke both legs and will be transferring to the [place] for rehab [facility] 04-30-2024 Note [facility] 04-30-2024 Note [facility] 04-29-2024 Note [facility] 04-29-2024 Note [facility] 04-28-2024 Note [facility] 04-28-2024 Note [facility] 04-27-2024 Note [facility] 04-26-2024 Note [facility] 04-26-2024 Note [facility] 04-26-2024 Note [facility] 04-26-2024 Note 10:00-SW sent update s to facility-await precert. OTM will continue to follow. [facility] 04-26-2024 Note [facility] 04-25-2024 Note [facility] 04-25-2024 Note 8:30-SW sent updates to [facility]-currently awaiting precert that was requested yesterday. OTM will continue to follow. [facility] 04-25-2024 Note [facility] 04-24-2024 Note [facility] 04-24-2024 Note [facility] 04-24-2024 Note [facility] 04-24-2024 Note [facility] 04-24-2024 Note [facility] 04-24-2024 Note [facility] 04-23-2024 Note New referral sent to Rosendo Banda [facility] 04-23-2024 Note [facility] 04-23-2024 Note [facility] 04-23-2024 Note [facility] 04-23-2024 Note [facility] 04-23-2024 Note [facility] 04-22-2024 Note Addendum created 1430 by Kirt Nicole MD Intraprocedure Event edited, Intraprocedure Staff edited [facility] 04-22-2024 Note [facility] 04-22-2024 Note [facility] 04-22-2024 Note [facility] 04-22-2024 Note [facility] 04-22-2024 Note [facility] 04-22-2024 Note [facility] 04-13-2024 History of Present illness Narrative Subjective [...] rheumatoid arthritis pain. She was seeing a instructor psychiatric aide in [place] prior to coming to [place] and was referred to Rheumatology here but [...] Exam Vitals reviewed. Exam conducted with a finished goods inspector present. Constitutional: General: She is not in [...] multiple sites, unspecified whether rheumatoid factor present ([facility]) - [facility] - [place], [place]; Future Refer back to Rheumatology. Importance of modifying disease progression discussed. Stay on Celebrex for now since she has stage 2 chronic kidney disease. 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 She has stage 2 chronic kidney disease with microalbuminuria Diabetic polyneuropathy associated with type 1 diabetes mellitus ([facility]) - gabapentin (NEURONTIN) 100 mg capsule; Take [...] in the morning. documented in this encounter [facility] 03-30-2024 Miscellaneous Notes Patient is very upset and would like to ask you some questions like what stage her kidneys are in. She stated if you can call her when you are done with patients today that would be great. documented in this encounter [facility] 03-30-2024 Telephone encounter Note Patient is very upset and would like to ask you some questions like what stage her kidneys are in. She stated if you can call her when you are done with patients today that would be great. [facility] 03-29-2024 Miscellaneous Notes Patient called and she is complaining about her drug screen and norco, she said she takes it every day and now she is out. I dont know what you would like to do I sent in few more and then we need to discuss different treatment options Notified and appointment scheduled documented in this encounter [facility] 03-29-2024 Telephone encounter Note Patient called and she is complaining about her drug screen and norco, she said she takes it every day and now she is out. I dont know what you would like to do [facility] 03-29-2024 Telephone encounter Note I sent in few more and then we need to discuss different treatment options [facility] 03-29-2024 Telephone encounter Note Notified and appointment scheduled [facility] 03-27-2024 History of Present illness Narrative Urine specimen obtained for drug screen documented in this encounter [facility] 03-26-2024 History of Present illness Narrative Images [...] witnessed apnea or headaches. She sees the sneller hand as week for type 1 diabetes. The [...] multiple sites, unspecified whether rheumatoid factor present ([facility]) As above. Other fatigue - CBC; Future Check CBC. [place] sleep scale showed normal risk. She was moderate risk with STOPBANG scale. May need further workup Medication monitoring encounter - Drug Screen, Urine; Future Check urine for drugs of abuse. Primary hypertension - Comprehensive metabolic panel; Future Check CMP. Blood pressure at goal. Type 1 diabetes mellitus with diabetic polyneuropathy ([facility]) - Microalbumin - Albumin: Creatinine Urine Ratio; Future Check ACR. Overweight She is overweight. She would benefit from weight loss. Diet exercise and weight loss discussed. Not really able to exercise much due to rheumatoid arthritis documented in this encounter [facility] 02-09-2024 History of Present illness Narrative Images from the original note were not included. Subjective Patient ID: Monica Acosta is a 63 y.o. female. She was at [facility] watching grandson play T-ball and her son [...] spasms. Strain of right shoulder, initial encounter [id number] exercises given. Risk of frozen shoulder discussed. She defers physical therapy. Medications as above. Overweight She is overweight. It is contributing to diabetes. She would benefit from weight loss Contusion of left knee, initial encounter Resolved documented in this encounter [facility] 02-07-2024 Miscellaneous Notes ----- Message from BECCA Cordero sent at 12/05/2023 1:22 PM EDT ----- Regarding: controlled substance Due late February, early March for RA Sent mychart msg documented in this encounter [facility] 02-07-2024 Telephone encounter Note ----- Message from BECCA Cordero sent at 12/05/2023 1:22 PM EDT ----- Regarding: controlled substance Due late February, early March for RA [facility] 02-07-2024 Telephone encounter Note Sent mychart msg [facility] 01-27-2024 History of Present illness Narrative The OARRS/MAPPS database was reviewed today and found to be appropriate. No indication of medication diversion, or non compliance. documented in this encounter [facility] 12-05-2023 History of Present illness Narrative .Subjective Patient ID: Monica Acosta is a 62 y.o. female. She has been taking the hydrocodone for rheumatoid arthritis more so than her low back pain although her low back still gives her pain Her rheumatoid arthritis makes her ache in multiple joints She does not see a instructor psychiatric aide for this She has been taking it [...] multiple sites, unspecified whether rheumatoid factor present ([facility]) - HYDROcodone-acetaminophen ([place]) 7.5-325 mg per tablet; Take 1 tablet by mouth 2 (two) times a day as needed for pain. Status post partial amputation of left foot ([facility]) Diabetic polyneuropathy associated with type 2 diabetes mellitus ([facility]) - TSH; Future Severe depression ([facility]) PAD (peripheral artery disease) ([facility]) Compression fracture of L1 vertebra with routine [...] Cordero 12/05/23 1329 documented in this encounter [facility] 11-29-2023 History of Present illness Narrative The OARRS/MAPPS database was reviewed today and found to be appropriate. No indication of medication diversion, or non compliance. BECCA Cordero 11/29/23 0745 documented in this encounter [facility] 11-15-2023 History of Present illness Narrative The OARRS/MAPPS database was reviewed today and found to be appropriate. No indication of medication diversion, or non compliance. BECCA Cordero 11/15/23 0759 documented in this encounter [facility] 10-16-2023 Miscellaneous Notes She has requesting a refill of her controlled substance but she is overdue for an appointment. She needs to set 1 up as soon as possible documented in this encounter [facility] 10-16-2023 Telephone encounter Note She has requesting a refill of her controlled substance but she is overdue for an appointment. She needs to set 1 up as soon as possible [facility] 10-04-2023 Miscellaneous Notes Rx sent in. She is due for a controlled substance recheck next week [facility] Telephone encounter Note Rx sent in. She is due for a controlled substance recheck next week [facility] 07-27-2021 Evaluation note Encounter Date Diagnosis [...] Patient care instructions given in writting by [facility] Care At Home document [facility] Other Evaluation note* Diagnosis Type 1 diabetes mellitus with hyperglycemia (HCC) ([facility])- Primary Essential (primary) hypertension (CMS/HCC) Unspecified essential hypertension Vitamin D deficiency, unspecified Dietary counseling and surveillance Mixed hyperlipidemia (CMS/HCC) Mixed hyperlipidemia Presence of insulin pump (external) (internal) 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 ([facility]) Encounter for fitting or adjustment of insulin pump Fitting and adjustment of insulin pump documented in this encounter [facility] Healthcare[facility]* Diagnosis Rheumatoid arthritis involving multiple sites with positive rheumatoid factor ([facility])- Primary Type I diabetes mellitus with polyneuropathy ([facility]) Coronary artery disease involving [place] coronary artery of [place] heart without angina pectoris ([facility]) PAD (peripheral artery disease) ([facility]) Unspecified peripheral vascular disease POTS (postural orthostatic tachycardia syndrome) Unspecified tachycardia Type 1 diabetes mellitus with other circulatory complications ([facility]) Type 1 diabetes mellitus with hyperglycemia (HCC) ([facility]) Encounter for long-term (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 medications Encounter for long-term (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 other medications Dyslipidemia ([facility]) Other 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 hyperlipidemia longterm (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 ([facility]) documented in this encounter [facility] HealthcareEvaluation note* Diagnosis Compression fracture of L1 vertebra with routine healing, subsequent encounter [facility] Diagnosis Rheumatoid arthritis involving multiple sites with positive rheumatoid factor ([facility]/HCC)- Primary Type I diabetes mellitus with polyneuropathy ([facility]) Coronary artery disease involving [place] coronary artery of [place] heart without angina pectoris ([facility]) PAD (peripheral artery disease) ([facility]) Unspecified peripheral vascular disease POTS (postural orthostatic tachycardia syndrome) Unspecified tachycardia Type 1 diabetes mellitus with other circulatory complications ([facility]CC) Type 1 diabetes mellitus with hyperglycemia (HCC) ([facility]) Encounter for long-term (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 medications Encounter for long-term (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 other medications Dyslipidemia (CMS/HCC) Other 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 hyperlipidemia longterm (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 ([facility]) Rheumatoid arthritis involving multiple sites with positive rheumatoid factor ([facility]) documented in this encounter [facility] HealthcareEvaluation note* Diagnosis Concussion without loss of consciousness, initial encounter- Primary Strain of neck muscle, initial encounter Strain of right shoulder, initial encounter Overweight Contusion of left knee, initial encounter [facility] Diagnosis Rheumatoid arthritis involving multiple sites, unspecified whether rheumatoid factor present ([facility]) [facility] Diagnosis Compression fracture of L1 vertebra with routine healing, subsequent encounter [facility] Diagnosis Compression fracture of L1 vertebra with routine healing, subsequent encounter [facility] Diagnosis Compression fracture of L1 vertebra, sequela- Primary Rheumatoid arthritis involving multiple sites, unspecified whether rheumatoid factor present ([facility]) Other fatigue Medication monitoring encounter Encounter for therapeutic drug monitoring Primary hypertension Unspecified essential hypertension Type 1 diabetes mellitus with diabetic polyneuropathy ([facility]) Overweight [facility] Diagnosis Rheumatoid arthritis involving multiple sites, unspecified whether rheumatoid factor present ([facility]) [facility] Diagnosis Medication monitoring encounter- Primary Encounter for therapeutic drug monitoring Compression fracture of L1 vertebra, sequela Rheumatoid arthritis involving multiple sites, unspecified whether rheumatoid factor present ([facility]) [facility] Diagnosis Rheumatoid arthritis involving multiple sites, unspecified whether rheumatoid factor present ([facility])- Primary Status post partial amputation of left foot ([facility]) Diabetic polyneuropathy associated with type 2 diabetes mellitus ([facility]) Severe depression ([facility]) Depressive disorder, not elsewhere classified PAD (peripheral artery disease) ([facility]) Unspecified peripheral vascular disease Compression fracture of L1 vertebra with routine healing, subsequent encounter Mixed hyperlipidemia [facility] Diagnosis Stage 2 chronic kidney disease due to type 1 diabetes mellitus ([facility])- Primary Rheumatoid arthritis involving multiple sites, unspecified whether rheumatoid factor present ([facility]) 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 ([facility]) Diabetic polyneuropathy associated with type 1 diabetes mellitus ([facility]) Hyperkalemia Hyperpotassemia Compression fracture of L1 vertebra, sequela [facility] Diagnosis Rheumatoid arthritis involving multiple sites with positive rheumatoid factor (CMS/HCC)- Primary Type I diabetes mellitus with polyneuropathy (CMS/HCC) Coronary artery disease involving [place] coronary artery of [place] heart without angina pectoris (CMS/HCC) PAD (peripheral artery disease) (CMS/HCC) Unspecified peripheral vascular disease POTS (postural orthostatic tachycardia syndrome) Unspecified tachycardia Type 1 diabetes mellitus with other circulatory complications (CMS/HCC) Type 1 diabetes mellitus with hyperglycemia (HCC) ([facility]) Encounter for long-term (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 medications Encounter for long-term (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 other medications Dyslipidemia (CMS/HCC) Other 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 hyperlipidemia longterm (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 (CMS/HCC) Rheumatoid arthritis involving multiple sites with positive rheumatoid factor (CMS/HCC) documented in this encounter [facility] HealthcareEvaluation note* Diagnosis Rheumatoid arthritis involving multiple sites, unspecified whether rheumatoid factor present ([facility]-HCC)- Primary Long-term use of [place] Long-term use of leflunomide therapy [facility] Diagnosis Rheumatoid arthritis involving multiple sites with positive rheumatoid factor (CMS/HCC)- Primary Type I diabetes mellitus with polyneuropathy (CMS/HCC) Coronary artery disease involving [place] coronary artery of [place] heart without angina pectoris (CMS/HCC) PAD (peripheral artery disease) (CMS/HCC) Unspecified peripheral vascular disease POTS (postural orthostatic tachycardia syndrome) Unspecified tachycardia Type 1 diabetes mellitus with other circulatory complications Type 1 diabetes mellitus with hyperglycemia (HCC) ([facility]) Encounter for long-term (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 medications Encounter for long-term (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 other medications Dyslipidemia (CMS/HCC) Other 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 hyperlipidemia longterm (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 (CMS/HCC) Rheumatoid arthritis involving multiple sites with positive rheumatoid factor (CMS/HCC) documented in this encounter [facility] HealthcareEvaluation noteNo assessment information availableTr[facility] Work Phone: Evaluation note* Diagnosis Rheumatoid arthritis involving multiple sites with positive rheumatoid factor (CMS/HCC)- Primary Type I diabetes mellitus with polyneuropathy (CMS/HCC) Coronary artery disease involving [place] coronary artery of [place] heart without angina pectoris (CMS/HCC) PAD (peripheral artery disease) ([facility]/HCC) Unspecified peripheral vascular disease POTS (postural orthostatic tachycardia syndrome) Unspecified tachycardia Type 1 diabetes mellitus with other circulatory complications Type 1 diabetes mellitus with hyperglycemia (HCC) ([facility]) Encounter for long-term (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 medications Encounter for long-term (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 other medications Dyslipidemia ([facility]/HCC) Other 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 hyperlipidemia 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 ([facility]) Type I diabetes mellitus with polyneuropathy ([facility]/HCC)- Primary Type 1 diabetes mellitus with hyperglycemia (HCC) ([facility]) POTS (postural orthostatic tachycardia syndrome) Unspecified tachycardia Rheumatoid arthritis involving multiple sites with positive rheumatoid factor ([facility]) Coronary artery disease involving [place] coronary artery of [place] heart without angina pectoris ([facility]) Hypersomnia Hypersomnia, unspecified documented in this encounter [facility]* Diagnosis Rheumatoid arthritis involving multiple sites with positive rheumatoid factor ([facility])- Primary Type I diabetes mellitus with polyneuropathy ([facility]) Coronary artery disease involving [place] coronary artery of [place] heart without angina pectoris ([facility]) PAD (peripheral artery disease) ([facility]) Unspecified peripheral vascular disease POTS (postural orthostatic tachycardia syndrome) Unspecified tachycardia Type 1 diabetes mellitus with other circulatory complications Type 1 diabetes mellitus with hyperglycemia (HCC) ([facility]) Encounter for long-term (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 medications Encounter for long-term (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 other medications Dyslipidemia ([facility]) Other 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 hyperlipidemia longterm (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 ([facility]) Type I diabetes mellitus with polyneuropathy ([facility])- Primary Type 1 diabetes mellitus with hyperglycemia (HCC) ([facility]) POTS (postural orthostatic tachycardia syndrome) Unspecified tachycardia Rheumatoid arthritis involving multiple sites with positive rheumatoid factor ([facility]) Coronary artery disease involving [place] coronary artery of [place] heart without angina pectoris ([facility]) Hypersomnia Hypersomnia, unspecified Rheumatoid arthritis involving multiple sites with positive rheumatoid factor ([facility]) documented in this encounter [facility]* Diagnosis Rheumatoid arthritis involving multiple sites with positive rheumatoid factor ([facility])- Primary Type I diabetes mellitus with polyneuropathy ([facility]) Coronary artery disease involving [place] coronary artery of [place] heart without angina pectoris ([facility]) PAD (peripheral artery disease) ([facility]) Unspecified peripheral vascular disease POTS (postural orthostatic tachycardia syndrome) Unspecified tachycardia Type 1 diabetes mellitus with other circulatory complications Type 1 diabetes mellitus with hyperglycemia (HCC) ([facility]) Encounter for long-term (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 medications Encounter for long-term (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 other medications Dyslipidemia ([facility]/HCC) Other 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 hyperlipidemia longterm (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 ([facility]) Type I diabetes mellitus with polyneuropathy ([facility])- Primary Type 1 diabetes mellitus with hyperglycemia (HCC) ([facility]) POTS (postural orthostatic tachycardia syndrome) Unspecified tachycardia Rheumatoid arthritis involving multiple sites with positive rheumatoid factor ([facility]) Coronary artery disease involving [place] coronary artery of [place] heart without angina pectoris ([facility]) Hypersomnia Hypersomnia, unspecified Type 1 diabetes mellitus with hyperglycemia (HCC) ([facility])- Primary Essential (primary) hypertension ([facility]) Unspecified essential hypertension Vitamin D deficiency, unspecified Dietary counseling and surveillance Mixed hyperlipidemia ([facility]) Mixed hyperlipidemia Presence of insulin pump (external) (internal) 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 ([facility]) Encounter for fitting or adjustment of insulin pump Fitting and adjustment of insulin pump documented in this encounter [facility] HealthcareEvaluation note* Diagnosis Rheumatoid arthritis involving multiple sites with positive rheumatoid factor ([facility])- Primary Type I diabetes mellitus with polyneuropathy ([facility]) Coronary artery disease involving [place] coronary artery of [place] heart without angina pectoris ([facility]) PAD (peripheral artery disease) ([facility]) Unspecified peripheral vascular disease POTS (postural orthostatic tachycardia syndrome) Unspecified tachycardia Type 1 diabetes mellitus with other circulatory complications Type 1 diabetes mellitus with hyperglycemia (HCC) ([facility]) Encounter for long-term (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 medications Encounter for long-term (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 other medications Dyslipidemia ([facility]) Other 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 hyperlipidemia 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 ([facility] Type I diabetes mellitus with polyneuropathy ([facility])- Primary Type 1 diabetes mellitus with hyperglycemia (HCC) ([facility]) POTS (postural orthostatic tachycardia syndrome) Unspecified tachycardia Rheumatoid arthritis involving multiple sites with positive rheumatoid factor ([facility]) Coronary artery disease involving [place] coronary artery of [place] heart without angina pectoris ([facility]) Hypersomnia Hypersomnia, unspecified Chest pain at rest- Primary Unspecified chest pain SOB (shortness of breath) on exertion Shortness of breath Coronary artery disease involving [place] coronary artery of [place] heart without angina pectoris ([facility]) Hypersomnia Hypersomnia, unspecified documented in this encounter [facility] HealthcareEvaluation note* Diagnosis Rheumatoid arthritis involving multiple sites with positive rheumatoid factor ([facility])- Primary Type I diabetes mellitus with polyneuropathy ([facility]) Coronary artery disease involving [place] coronary artery of [place] heart without angina pectoris ([facility]) PAD (peripheral artery disease) ([facility]) Unspecified peripheral vascular disease POTS (postural orthostatic tachycardia syndrome) Unspecified tachycardia Type 1 diabetes mellitus with other circulatory complications Type 1 diabetes mellitus with hyperglycemia (HCC) ([facility]) Encounter for long-term (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 medications Encounter for long-term (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 other medications Dyslipidemia ([facility]) Other 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 hyperlipidemia 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 ([facility]) Type I diabetes mellitus with polyneuropathy ([facility])- Primary Type 1 diabetes mellitus with hyperglycemia (HCC) ([facility]) POTS (postural orthostatic tachycardia syndrome) Unspecified tachycardia Rheumatoid arthritis involving multiple sites with positive rheumatoid factor ([facility]) Coronary artery disease involving [place] coronary artery of [place] heart without angina pectoris ([facility]) Hypersomnia Hypersomnia, unspecified Chest pain at rest- Primary Unspecified chest pain SOB (shortness of breath) on exertion Shortness of breath Coronary artery disease involving [place] coronary artery of [place] heart without angina pectoris ([facility]) Hypersomnia Hypersomnia, unspecified POTS (postural orthostatic tachycardia syndrome) Unspecified tachycardia POTS (postural orthostatic tachycardia syndrome)- Primary Unspecified tachycardia Rheumatoid arthritis involving multiple sites with positive rheumatoid factor ([facility]) documented in this encounter [facility] HealthcareEvaluation note* Diagnosis Rheumatoid arthritis involving multiple sites with positive rheumatoid factor (HCC)- Primary Type I diabetes mellitus with polyneuropathy (HCC) Coronary artery disease involving [place] coronary artery of [place] heart without angina pectoris PAD (peripheral artery disease) Unspecified peripheral vascular disease POTS (postural orthostatic tachycardia syndrome) Unspecified tachycardia Type 1 diabetes mellitus with other circulatory complications (HCC) Type 1 diabetes mellitus with hyperglycemia (HCC) Encounter for long-term (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 medications Encounter for long-term (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 other medications Dyslipidemia Other 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 hyperlipidemia longterm (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 (HCC) Type I diabetes mellitus with polyneuropathy (HCC)- Primary Type 1 diabetes mellitus with hyperglycemia (HCC) POTS (postural orthostatic tachycardia syndrome) Unspecified tachycardia Rheumatoid arthritis involving multiple sites with positive rheumatoid factor (HCC) Coronary artery disease involving [place] coronary artery of [place] heart without angina pectoris Hypersomnia Hypersomnia, unspecified Chest pain at rest- Primary Unspecified chest pain SOB (shortness of breath) on exertion Shortness of breath Coronary artery disease involving [place] coronary artery of [place] heart without angina pectoris Hypersomnia Hypersomnia, unspecified POTS (postural orthostatic tachycardia syndrome) Unspecified tachycardia Coronary artery disease involving [place] coronary artery of [place] heart without angina pectoris- Primary Rheumatoid arthritis involving multiple sites with positive rheumatoid factor (HCC) documented in this encounter [facility] HealthcareEvaluation note* Diagnosis Rheumatoid arthritis involving multiple sites with positive rheumatoid factor (HCC)- Primary Type I diabetes mellitus with polyneuropathy (HCC) Coronary artery disease involving [place] coronary artery of [place] heart without angina pectoris PAD (peripheral artery disease) Unspecified peripheral vascular disease POTS (postural orthostatic tachycardia syndrome) Unspecified tachycardia Type 1 diabetes mellitus with other circulatory complications (HCC) Type 1 diabetes mellitus with hyperglycemia (HCC) Encounter for long-term (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 medications Encounter for long-term (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 other medications Dyslipidemia Other 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 hyperlipidemia 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 (HCC) Type I diabetes mellitus with polyneuropathy (HCC)- Primary Type 1 diabetes mellitus with hyperglycemia (HCC) POTS (postural orthostatic tachycardia syndrome) Unspecified tachycardia Rheumatoid arthritis involving multiple sites with positive rheumatoid factor (HCC) Coronary artery disease involving [place] coronary artery of [place] heart without angina pectoris Hypersomnia Hypersomnia, unspecified Chest pain at rest- Primary Unspecified chest pain SOB (shortness of breath) on exertion Shortness of breath Coronary artery disease involving [place] coronary artery of [place] heart without angina pectoris Hypersomnia Hypersomnia, unspecified POTS (postural orthostatic tachycardia syndrome) Unspecified tachycardia MDD (major depressive disorder), recurrent episode, moderate (HCC)- Primary Type I diabetes mellitus with polyneuropathy (HCC) Rheumatoid arthritis involving multiple sites with positive rheumatoid factor (HCC) Type 1 diabetes mellitus with hyperglycemia (HCC) POTS (postural orthostatic tachycardia syndrome) Unspecified tachycardia Coronary artery disease involving [place] coronary artery of [place] heart without angina pectoris documented in this encounter [facility] HealthcareHistory general Narrative - Reported* Type Description Date Medical History diabetes mallitus Medical History chronic depression Medical History high blood pressure Medical History high cholesterol Medical History rheumatoid arthritis Surgical History open heart surgery [facility] Other InstructionsNot on filedocumented in this encounter [facility] filedocument[facility] in [facility]Not on filedocumented in this encounter [facility]* Attachments The following attachments cannot be sent through Care Everywhere. * Frozen Shoulder Exercises (Indian) documented in this encounterProMedica Health SystemInstructionsNot on [...] multiple sites, unspecified whether rheumatoid factor present ([facility]) Zen Flores DO [address] [facility] [place] [address] Collin Saba MD [phone] [address] Referral ID Status Reason Start Date Expiration Date Visits Requested Visits Authorized [id number] Authorized Specialty Services Required 04/13/2024 04/13/2025 1 1 [facility] (narrative)No reason for referral information availableSouthern [facility] Work Phone: Reason for visit Narrative* Consultation (Routine) - Pending Review Specialty Diagnoses / Procedures Referred By Narendra adams Referred To Contact Rheumatology Diagnoses Rheumatoid arthritis involving multiple sites with positive rheumatoid factor ([facility]) Procedures MA OFFICE OUTPATIENT VISIT 60-74 MINS HIGH MDM [id number] (SNOMED CT) - AMB REFERRAL TO RHEUMATOLOGY Rudolph Hurt MD [address] [place] [address] Phone: tel: fax: Collin Saba MD [id number] [address] Phone: tel: fax: Referral ID Status Reason Start Date Expiration Date V isits Requested Visits Authorized [id number] Pending Review 09/19/2024 03/18/2025 1 1 [facility] Summary Purpose Family History No Family History Records FoundNo Family History Records FoundNo Family History Records FoundNo Family History Records FoundNo Family History Records FoundNo Family History Records FoundNo Family History Records FoundNo Family History Records Found Advance Directives No Advanced Directives Records Found Advance Directive Response Recorded Date/ Time Advance Directives No March 03 2:25pm Hospital Course Note MR#: [id number] [facility] Pt. Name: Monica Acosta Admitted: 06/30/2020 Discharged: [...] regimen and follow up with the primary sneller hand. HOSPITAL COURSE: The patient is a 59-year-old woman with recurrent falls and syncope exacerbated by atenolol and diltiazem dose increases, status post L1 decompression, underwent L1 vertebroplasty on July 01 and was doing okay, no active complaints status post the patient did not develop any complications. The patient had been doing good fo (more content not included)... Chief Complaint and Reason for Visit Chief Complaint Admit Date Ear Cleaning, plugged March 11, 2025 12: 50pm Additional Source Comments INFORMATION SOURCE (unrecogn ized section and content) DATE CREATED AUTHOR 10/15/2020 [facility] DATE CREATED AUTHOR AUTHOR'S ORGANIZ ATION 09/23/2021 [facility] DATE CREATED AUTHOR AUTHOR'S ORGANIZ ATION 10/19/2022 [facility] DATE CREATED AUTHOR AUTHOR'S ORGANIZ ATION 04/16/2024 [facility] DATE CREATED AUTHOR AUTHOR'S ORGANIZ ATION 11/21/2024 [facility] DATE CREATED AUTHOR AUTHOR'S ORGANIZ ATION 12/08/2024 [facility] DATE CREATED AUTHOR AUTHOR'S ORGANIZ ATION 12/14/2024 [facility] DATE CREATED AUTHOR AUTHOR'S ORGANIZ ATION 03/18/2025 [facility] EPIC REASON FOR VISIT (unrecogniz [...] Reason Onset Date Comments Med Refill 12/08/2023 Reason Comments Follow-up Chest tightnessNot f eeling well Reason Comments Diabetes Follow-up Reason Comments Follow-up Breathing trouble at night low pulse ox Reason Comments Follow-up 3m f/upDepression wo rse Care Teams (unrecognized sec tion and content) Javascript Programmer Relationship Specialty Start Date End Date Zen Flores MD [address] [facility], [place] [address] PCP - General Family Medicine 08/14/24 Javascript Programmer Relationship Specialty Start Date End Date Zen Flores MD [address] [place] [address] PCP - General Family Medicine 08/14/24 Javascript Programmer Relationship Specialty Start Date End Date Rudolph Hurt MD [address] [place] [id number] PCP - General Family Medicine 09/19/24 Javascript Programmer Relationship Specialty Start Date End Date Zen Flores MD [address], [place] [address] PCP - General Family Medicine 08/14/24 Javascript Programmer Relationship Specialty Start Date End Date Zen Flores DO [address], [place] [address] PCP - General Family Medicine 09/18/19 Javascript Programmer Relationship Specialty Start Date End Date Zen Flores DO [address], [place] [address] PCP - General Family Medicine 09/18/19 Javascript Programmer Relationship Specialty Start Date End Date Rudolph Hurt MD [address] [place] [id number] PCP - General Family Medicine 09/19/24 Javascript Programmer Relationship Specialty Start Date End Date Zen Flores DO [address] [place] [address] PCP - General Family Medicine 09/18/19 Javascript Programmer Relationship Specialty Start Date End Date Zen Flores DO [address], [place] [address] PCP - General Family Medicine 09/18/19 Javascript Programmer Relationship Specialty Start Date End Date Zen Flores DO [address] [place] [address] PCP - General Family Medicine 09/18/19 Javascript Programmer Relationship Specialty Start Date End Date Zen Flores DO [address], [place] [address] PCP - General Family Medicine 09/18/19 Javascript Programmer Relationship Specialty Start Date End Date Zen Flores DO [address], [place] [address] PCP - General Family Medicine 09/18/19 Javascript Programmer Relationship Specialty Start Date End Date Zen Flores DO [address], [place] [address] PCP - General Family Medicine 09/18/19 Javascript Programmer Relationship Specialty Start Date End Date Zen Flores DO [address] [place] [address] PCP - General Family Medicine 09/18/19 Javascript Programmer Relationship Specialty Start Date End Date Rudolph Hurt MD [address] [place] [address] PCP - General Family Medicine 09/19/24 Javascript Programmer Relationship Specialty Start Date End Date Rudolph Hurt MD [address] [place] [id number] PCP - General Family Medicine 09/21/24 Javascript Programmer Relationship Specialty Start Date End Date Rudolph Hurt MD [address] [place] [phone] PCP - General Family Medicine 09/19/24 Javascript Programmer Relationship Specialty Start Date End Date Rudolph Hurt MD [address] [place] [phone] PCP - General Family Medicine 09/19/24 Team Status: Active Member Role Status Dates Zen Flores DO Primary Care Provider Active Team Status: Inactive Member Role Status Dates Zen Flores DO Primary Care Provider Active Start: December 06, 2024 End: December 06, 2024 Radha Brannon DPM MS Attending Provider Active Start: December 06, 2024 End: December 06, 2024 Javascript Programmer Relationship Specialty Start Date End Date Rudolph Hurt MD [address] [place] [phone] PCP - General Family Medicine 09/19/24 Javascript Programmer Relationship Specialty Start Date End Date Rudolph Hurt MD [address] [place] [phone] PCP - General Family Medicine 09/19/24 Javascript Programmer Relationship Specialty Start Date End Date Rudolph Hurt MD [address] [place] [phone] PCP - General Family Medicine 09/19/24 Javascript Programmer Relationship Specialty Start Date End Date Rudolph Hurt MD [address] [place] [phone] PCP - General Family Medicine 09/19/24 Javascript Programmer Relationship Specialty Start Date End Date Rudolph Hurt MD [address] [place] [phone] PCP - General Family Medicine 09/19/24 Javascript Programmer Relationship Specialty Start Date End Date Rudolph Hurt MD [address] [place] [phone] PCP - General Family Medicine 09/19/24 Javascript Programmer Relationship Specialty Start Date End Date Rudolph Hurt MD [address] [place] [phone] PCP - General Family Medicine 09/19/24 Javascript Programmer Relationship Specialty Start Date End Date Rudolph Hurt MD [address] [place] [phone] PCP - General Family Medicine 09/19/24 Team Status: Active Member Role Status Dates Rudolph Hurt MD Primary Care Provider Active Team Status: Inactive Member Role Status Dates Silvia Blank APRN Attending Provider Active Start: March 11, 2025 End: March 11, 2025 Rudolph Hurt MD Primary Care Provider Active S tart: March 11, 2025 End: March 11, 2025 Javascript Programmer Relationship Specialty Start Date End Date Rudolph Hurt MD [address] [place] [phone] PCP - General Family Medicine 09/19/24 Javascript Programmer Relationship Specialty Start Date End Date Rudolph Hurt MD [address] [place] [address] PCP - General Family Medicine 09/19/24 Goals (unrecognized section and content) Goals may be documented in a n alternate section FOR RECORDS PERTAINING TO PATIENTS WHO ARE [...] BE BASED ON THE PRIMARY CLINICAL RECORDS. [employer] provides no warranty or guarantee of the accuracy or completeness of information in this document.
== END 2025-05-07 13:09 | disposition home or self-care (01) ==
LOC: WC 13:08
PROVIDERS: PCP Family Medicine; Visit Provider Physician Assistant
DX: L97.814 Non-pressure chronic ulcer of other part of right lower leg with necrosis of bone (principal)
CPT/HCPCS: 11043

== ENCOUNTER 2025-05-29 09:47 | Outpatient (OUT) | payer MEDICARE, MEDICAID, SELFPAY ==
--- OUTSIDE RECORDS SUMMARY | 2025-05-29 10:02 | XMS_ITS | CCD ---
Author Organization [facility] Care Team Providers Care Neuroscientist Name Role Phone SELF, REFERRED Referring Unavailable YISEL, ALEXANDER Admitting Unavailable SERENA MARTINEZSEIN Alena Surgeon Unavailable DIONNE HYATT Attending Unavailable [place] Procedure Practitioner Unavailab le UNKNOWN, PHYSICIAN Primary Care Unavailable SELF, REFERRED Referring Unavailable SELF, REFERRED Primary Care Unavailable ELAMANDA CHILANGO K Attending Unavailable SERENA MARTINEZSEIN K Admitting Unavailable Veronica Mcneill Unavailable RADHA BRANNON Admitting Unavailable RADHA BRANNON Attending Unavailable SANDRA, DR ZEN Reinoso Primary Care Unavailable HIGHLRADHA VASQUEZ Consulting Unavailable REBECCA BRENNAN Consulting Unavailable RADHA BRANNON Admitting Unavailable CLOVIS, RADHA Nogueira Attending Unavailable SANDRA, DR ZEN [...] BRENNAN Consulting Unavailable RADHA BRANNON Admitting Unavailable RADHA BRANNON Attending Unavailable SANDRA, DR ZEN Reinoso Primary Care Unavailable RADHA BRANNON Admitting Unavailable RADHA BRANNON Attending Unavailable SANDRA, DR ZEN Rienoso Primary Care Unavailable ABBAS, DR BLANCO Admitting Unavailable ABBAS, DR BLANCO Attending Unavailable SANDRA, DR ZEN Reinoso Primary Care Unavailable ABBAS, DR BLANCO Consulting Unavailable YOMAIRA, DR RICHARD Sidhu Consulting Unavailable RADHA BRANNON Consulting Unavailable CHARLOTTE, DR DEMETRA Sidhu Admitting Unavailable CHARLOTTE, DR DEMETRA Sidhu Attending Unavailable SANDRA, DR ZEN Reinoso Primary Care Unavailable ZIKERWINER, DR RICHARD Sidhu Consulting Unavailable CHARLOTTE, DR [...] FURLONG, DR ZEN Reinoso Primary Care Unavailable ARCADIA, DR ANN García Consulting Unavailable HIGHLANDER, RADHA Nogueira Consulting Unavailable HIGHLANDER, RADHA Nogueira Admitting Unavailable HIGHLANDER, RADHA Nogueira Attending Unavailable FURJAZZYNG, DR ZEN Reinoso Primary Care Unavailable HIGHLANDER, RADHA Nogueira Admitting Unavailable HIGHLANDER, RADHA Nogueira Attending Unavailable FURLONG, DR ZEN Reinoso Primary Care Unavailable HIGHLANDER, RADHA Nogueira Admitting Unavailable HIGHLANDER, RADHA Nogueira Attending Unavailable FURJAZZYNG, DR ZEN Reinoso Primary Care Unavailable FARIBA CARRERA Admitting Unavailable DEBI, FARIBA Attending Unavailable FURTHAO, DR ZEN Reinoso Primary Care Unavailable YOMAIRA, DR RICHARD Sidhu Consulting Unavailable DEBI, FARIBA Consulting Unavailable DEBIFARIBA Admitting Unavailable DEBI, FARIBA Attending Unavailable FURTHAO, DR ZEN Reinoso Primary Care Unavailable FURLONG, DR ZEN Reinoso Primary Care Unavailable SCHUYLER, DR JAMES Reinoso Consulting Unavailabl e SCHUYLER, DR JAMES Reinoso Admitting Unavailabl e REINFREYA, DR JAMES Reinoso Attending Unavailabl e SANDRA, DR ZEN Reinoso Primary Care Unavailable HAY, DR HARRELL Admitting Unavailable KENDRA, DR HARRELL Attending Unavailable KENDRA, DR HARRELL Consulting Unavailable RICHARD BRONSON Consulting Unavailable SANDRA, DR ZEN Reinoso Primary Care Unavailable KENDRA, DR HARRELL Admitting Unavailable KENDRA, DR HARRELL Attending Unavailable KENDRA, DR HARRELL Consulting Unavailable MARY, JANETT Consulting Unavailable AKILAJOEL Regan Consulting Unavailable GIOVANNI KHALIL Consulting Unavailable SLICKEREThea, DR RUDOLPH Farnsworth Attending Unavailable LICHA, DR RUDOLPH Farnsworth Admitting Unavailable SANDRA, DR ZEN Reinoso Primary Care Unavailable JEAN-PAUL, DR CHAYITO Sidhu Consulting Unavailable ALESSANDRO, DR HENRY Consulting Unavailable LICHA, DR RUDOLPH Farnsworth Consulting Unavailable HIGHLCHRISTINA, RADHA Nogueira Consulting Unavailable ANDRADE DIAL Consulting Unavailable ENRRIQUE GONCALVES Consulting Unavailable HIGHLRADHA VASQUEZ Procedure Practitioner Unava ASH Elizabeth Consulting Unavailable FURLONG, DR ZEN Reinoso Primary Care Unavailable FAWWAD, CAMPBELL H Admitting Unavailable FAWWAD, CAMPBELL H Attending Unavailable SHANKAR, DR ANN García Consulting Unavailable ZIEBER, DR RICHARD Sidhu Consulting Unavailable HIGHLANDER, RADHA Nogueira Consulting Unavailable FAWCOCOD, H Consulting Unavailable VAZQUEZ Pedroza, GIAN LUJAN Consulting Unavailable SOLA STEVE Consulting Unavailable HERRERA NOLAN Consulting Unavailable FURLONG, DR ZEN Reinoso Primary Care Unavailable ALESSANDRO, DR HENRY Consulting Unavailable JEROMY, DR NAOMIE Dalton Admitting Unavailable PINZON, DR NAOMIE Dalton Attending Unavailable PINZON, DR NAOMIE Dalton Consulting Unavailable ZIEBER, DR RICHARD Sidhu Consulting Unavailable HIGHLANDER, RADHA Nogueira Consulting Unavailable SILVINA ARAUJO Consulting Unavailable AYYAGARIBRENDA Consulting Unavailable MCCRICHARD GUAMAN [...] FURLONG, DR ZEN Reinoso Primary Care Unavailable EDMETRA PORTER Attending Unavailable FURLOZEN BURNS Referring Unavailable FURLONGZEN Primary Care Unavailable FURLONG, ZEN Reinoso Attending Unavailable FURLONGZEN Referring Unavailable FURLONG, ZEN [...] Unavailable Furlong Zen SHAVER Primary Care Provider [phone] Rudolph Hurt MD Primary Care Provider Furlong DO, Zen Kemar Primary Care Provider Rudolph Hrut MD Primary Care Provider [phone] DEMETRA PORTER Referring Unavailable FURLONG, ZEN G Primary Care Unavailable FURLONG, ZEN G Referring Unavailable FURLONG, ZEN G Primary Care Unavailable FURLONG, ZEN G Referring Unavailable FURLONG, ZEN G Primary Care Unavailable FURLONG, ZEN G Referring Unavailable FURLONG, ZEN G Primary Care Unavailable SABA, COLLIN Attending Unavailable RUDOLPH HURT Referring Unavailable NADERERRUDOLPH Primary Care Unavailable SABA, COLLIN Referring Unavailable RUDOLPH HURT Primary Care Unavailable SABA, COLLIN Referring Unavailable RUDOLPH HRUT Primary Care Unavailable Furlong Zen WISE Primary Care Provider Radha Brannon DPM Attending Provider Radha Brannon Attending Unavailable Radha Brannon Admitting Unavailable Furlong, Zen Primary Care Unavailable Silvia Blank APRN Attending Provider [phone] Rudolph Hurt MD Primary Care Provider [phone] RUDOLPH HURT Attending Unavailable SRIRAM, AHMAD F Attending Unavailable SRIRAM, AHMAD F Referring Unavailable SRIRAM, AHMAD F Attending Unavailable SRIRAM, AHMAD F Referring Unavailable NADERER, RUDOLPH Attending Unavailable SANJEEV CHAIREZ Attending Unavailable RUDOLPH HURT Referring Unavailable RUDOLPH HURT Attending Unavailable VIVIANARRUDOLPH Attending Unavailable SHENDGE, VITHAL Attending Unavailable SHENDGE, VITHAL Attending Unavailable SHENDGE, VITHAL Referring Unavailable SHENDGE, VITHAL Referring Unavailable SHENDGE, VITHAL Referring Unavailable SHENDGE, VITHAL Referring Unavailable SHENDGE, VITHAL Referring Unavailable SHENDGE, VITHAL Referring Unavailable SHENDGE, VITHAL Attending Unavailable TY CARTER Attending Unavailable SHENDGE, VITHAL Attending Unavailable SHENDGE, VITHAL Attending Unavailable SHENDGE, VITHAL Attending Unavailable Allergies Allergy Classification Reported Allergen(s) Allergy Type Date of Onset Reaction(s) Facility (1 source) Adhesive Tape Drug allergy (disorder) 0 [facility] Repository (7 sources) Amino Acids; Translations: [LISINOPRIL] Drug Allergy 0 [facility] Repository (1 source) Bee/Wasp/Ant venom; Translations: [Bee/Wasp Stings] Propensity to adverse reactions (disorder) 0 [facility] Repository (6 sources) Codeine; Translations: [CODEINE] Drug Allergy 0 [facility] Repository (6 sources) Morphine; Translations: [MORPHINE] Drug Allergy 0 [facility] Repository (2 sources) bee venom Drug allergy (disorder) The [facility] Repository (4 sources) cilostazol; Translations: [CILOSTAZOL] Drug Allergy 0 The [facility] Repository (2 sources) Desonide Drug Allergy The [facility] Repository (4 sources) HYDROmorphone; Translations: [HYDROMORPHONE] Drug Allergy 0 The [facility] Repository (1 source) icosapent ethyl Drug Allergy The [facility] Repository (20 sources) Adhesive agent; Translations: [...] (20 sources) Codeine Drug Allergy 0 Other [facility] (20 sources) Honey bee venom Propensity to adverse reactions 1 [facility] (20 sources) HYDROmorphone Drug Allergy 0 [facility] (20 sources) Lisinopril Allergy to substance 0 Other [facility] (20 sources) Morphine Drug Allergy 0 Other [facility] (20 sources) Wound Dressing Adhesive Drug Intolerance 1 [facility] (20 sources) cilostazol Drug Allergy 0 [facility] (20 sources) Lisinopril Drug Allergy 0 Rash [facility] Medications Current Medications Medication Drug Class(es) Dates Sig (Normalized) Sig (Original) acetaminophen 325 mg / HYDROcodone bitartrate 5 mg oral tablet (20 sources) Opioid Agonist Start: 03-14-2025 End: 03-29-2025 take 1 tablet by mouth four times daily as needed for pain HYDROcodone-aceta minophen ([place]) 5-325 MG tablet Indications: Rheumatoid arthritis involving multiple sites with positive rheumatoid factor (HCC) Take 1 tablet by mouth 4 (four) times a day as needed for severe pain for up to 15 days 60 tablet 03/14/2025 03/29/2025 Active Start: 12-27-2024 End: 03-05-2025 take 1 tablet by mouth four times daily as needed for pain HYDROcodone-acetaminophen ([place]) 5-325 MG tablet Indications: Rheumatoid arthritis involving multiple sites with positive rheumatoid factor (HCC) Take 1 tablet by mouth 4 (four) times a day as needed for severe pain for up to 7 days 28 tablet 02/26/2025 03/05/2025 Active Start: 12-03-2024 End: 12-10-2024 take 1 tablet by mouth four times daily as needed for pain HYDROcodone-acetaminophen ([place]) 5-325 MG tablet Indications: Rheumatoid arthritis involving multiple sites with positive rheumatoid factor (CMS/HCC) Take 1 tablet by mouth 4 (four) times a day as needed for severe pain for up to 7 days 28 tablet 12/03/2024 12/10/2024 Active Start: 11-12-2024 End: 11-19-2024 take 1 tablet by mouth four times daily as needed for pain HYDROcodone-acetaminophen ([place]) 5-325 MG tablet Indications: Rheumatoid arthritis involving multiple sites with positive rheumatoid factor (CMS/HCC) Take 1 tablet by mouth 4 (four) times a day as needed for severe pain for up to 7 days 28 tablet 11/12/2024 11/19/2024 Active Start: 10-19-2024 End: 10-26-2024 take 1 tablet by mouth four times daily as needed for pain HYDROcodone-acetaminophen ([place]) 5-325 MG tablet Indications: Rheumatoid arthritis involving multiple sites with positive rheumatoid factor (CMS/HCC) Take 1 tablet by mouth 4 (four) times a day as needed for severe pain for up to 7 days 28 tablet 10/19/2024 10/26/2024 Active Start: 09-19-2024 End: 09-26-2024 take 1 tablet by mouth four times daily as needed for pain HYDROcodone-acetaminophen ([place]) 5-325 MG tablet Indications: Rheumatoid arthritis involving [...] MG tablet 09/19/2024 Discontinued HYDROcodone-Acet aminophen Active [id number] 200 actuat albuterol 0.09 mg/actuat metered dose [...] MG tablet Indications: 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 Take 1 tablet [...] (5,000 unit) tablet 0 Active Continuous Glucose Scientist/Engineer (FreeStyle Tru 14 Day [place]) device (6 sources) End: 09-19-2024 Continuous Glucose Scientist/Engineer (FreeStyle Tru 14 Day [place]) device 09/19/2024 Discontinued Continuous Gluco se Scientist/Engineer (FreeStyle Tru 14 Day [place]) device Active Continuous Glucose Sensor (FreeStyle Tru [...] multiple sites, unspecified whether rheumatoid factor present ([facility]) Take 1 tablet (200 mg total) by [...] multiple sites, unspecified whether rheumatoid factor present ([facility]) Take 1 tablet (20 mg total) [...] disease (20 sources) 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; Translations: [Coronary arteriosclerosis] Onset: 08-16-2019 09-19-2024 Chronic Diabetes mellitus with complications (20 sources) Type [...] Onset: 03-22-2022 Chronic Other aftercare (1 source) residential (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; Translations: [GROUP HOME 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 INSULIN] Onset: 10-19-2022 Episodic Other aftercare (2 sources) Other long-term (current) drug therapy; Translations: [OTH GROUP HOME CURRENT DRUG THERAPY] Onset: 10-19-2022 Episodic Other aftercare (1 source) 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 aspirin; Translations: [[employer] 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 ASPIRIN] Onset: 08-18-2022 Episodic Other aftercare (1 source) Drug therapy finding; Translations: [Other long-term (current) drug therapy] 11-19-2024 Episodic Other aftercare (2 sources) Long-term current use of leflunomide; Translations: [Other oysterman (current) drug therapy] Onset: 11-19-2024 11-19-2024 Episodic [...] Onset: 08-18-2022 Episodic Other lower respiratory disease (10 sources) [...] psychoactive substance dependence with withdrawal, unspecified; Translations: [OT PSYCHOACTV DEPEND W/D UNSPEC] Onset: 08-18-2022 Chronic [...] procedures, not elsewhere classified, initial encounter; Translations: [[facility] COMPLICATIONS PROC NEC INITIAL] Onset: 03-18-2022 Episodic Coronary atherosclerosis and other heart disease (4 sources) Presence of aortocoronary bypass graft; Translations: [Presence of coronary angioplasty implant and graft] Onset: 03-22-2022 Episodic Diabetes mellitus without complication (20 sources) Presence of insulin pump (external) (internal); Translations: [Insulin pump present] Onset: 10-19-2022 07-18-2024 Episodic E Codes: Fall (1 source) Unspecified [...] current use of drug therapy; Translations: [Other long-term (current) drug therapy] Onset: 09-19-2024 09-19-2024 Episodic Other bone disease and musculoskeletal deformities (1 source) Acquired absence of other right toe(s); Translations: [ACQUIRED ABSENCE OTHER RIGHT TOES] Onset: 01-08-2022 Episodic Other circulatory disease (4 sources) Other specified symptoms and signs involving the circulatory and respiratory systems; Translations: [OTH SPEC SX SIGNS INVLV CIRC RS] Onset: 02-18-2022 Episodic Other circulatory disease (2 sources) Postural orthostatic tachycardia syndrome ; Translations: [Postural orthostatic tachycardia syndrome (POTS)] Onset: 11-30-2024 Episodic Other connective tissue disease (4 sources) [...] Onset: 09-29-2020 05-21-2022 Episodic Other gastrointestinal disorders (1 source) Constipation, unspecified; Translations: [CONSTIPATION UNSPECIFIED] Onset: 11-05-2021 Episodic Other injuries and conditions due to external causes (4 sources) Unspecified injury of head, initial encounter; Translations: [UNSPECIFIED INJURY HEAD INITIAL ENC] Onset: 05-19-2022 Episodic Other lower respiratory disease (3 sources) [...] Test Name Value Interpretation Reference Range Facility Follow-Upon 05-08-2025 Follow-Up [id number] Monica Acosta 1960 F Date Provider Department Center 05/08/2025 [facility] Family History Problem Relation Age of Onset Anesthesia problems Mother Broken bones Mother Osteoporosis Mother Broken bones Father Stroke Father Coronary artery disease Father Family Status - Relation Status Age at Mother Father Level of Service:19368 [place] OFFICE/OUTPATIENT ESTABLISHED LOW MDM 20 MIN (GC) Reason for Visit and Comments: Follow-up [490320] Pain [136] Follow-up [860503] Pain [136] Normal [facility] Glucose (Bld) [Mass/Vol]Orde red By: Meenakshi Heck on 12-31-2024 Glucose Blood, POC 166 mg/dL [facility] - Hematology and Cell countson 12-31-2024 HbA1c (Bld) [Mass fraction] 7.5 % [facility] No Panel InformationOrdered By: Meenakshi Heck on 12-31-2024 [facility] ALL CBC WITH AUTO DIFFon BASOPHILS ABSOLUTE AUTO 0.1 [facility] Basophils/100 WBC (Bld) 0.8 % 0.2 - 2.0 % [facility] Eosinophils/100 WBC (Bld) 3.4 % 0.9 - 7.0 % [facility] Erythrocyte distribution width (RBC) [Ratio] 16.8 % High 11.0 - 15.0 % [facility] Hematocrit (Bld) [Volume fraction] 47.2 % 36.0 - 48.0 % [facility] Hemoglobin (Bld) [Mass/Vol] 15.2 g/dL 12.0 - 16.0 g/dL [facility] IMMATURE GRANULOCYTES ABS AUTO 0.04 High [facility] Immature granulocytes/100 WBC (Bld) 0.4 % 0.0 - 0.5 % [facility] Interpretation and review of laboratory results Abnormal [facility] LYMPHOCYTES ABSOLUTE AUTO 1.[address] [facility] Lymphocytes/100 WBC (Bld) 14.5 % Low 20.5 - 60.0 % [facility] MCH (RBC) [Entitic mass] 29.4 pg 26.7 - 34.0 pg [facility] MCHC (RBC) [Mass/Vol] 32.2 g/dL 29.9 - 35.2 g/dL [facility] MCV (RBC) [Entitic vol] 91.3 fL 81.0 - 99.0 fL [facility] MONOCYTES ABSOLUTE AUTO 0.6 [facility] Monocytes/100 WBC (Bld) 5.3 % 1.7 - 12.0 % [facility] NEUTROPHILS ABSOLUTE AUTO 7.8 High [facility] Neutrophils/100 WBC (Bld) 75.6 % High 43.0 - 75.0 % [facility] Platelet mean volume (Bld) [Entitic vol] 11.7 fL 9.5 - 13.5 fL [facility] TBH EO # 0.4 [facility] PLT 292 [facility] RBC 5.17 [facility] WBC 10.3 [facility] Neftali 12-06-2024 L - -------- Specimen: [id number] Received: 12/07/24 Status: MARLEE Escobar Num: [id number] Spec Type: Surgical Subm Dr: Radha Brannon,DPM, MS Tissues: A Bone Fragments - Other than Path Fracture (RIGHT TIBIA) Procedures: HE, Gross/Micro L3, Decalcification -------- Age/ Patient Sex Location Account Attending Physician -------- Monica Acosta 63/F LABELL [id number] Radha Brannon DPM, MS -------- SPEC NUM: [id number] RECD: 12/07/24 STATUS: MARLEE ESCOBAR NUM: [id number] GLENROY: 12/06/24 [facility] DR: Radha Brannon DPM, MS ENTERED: 12/07/[address]: Solo,Lab SPEC TYPE: Surgical DEPT: AYAN COLINDRES ENTERED BY: [id number] RECV BY: [id number] ORDERED: HE, Gross/Micro L3, Decalcification ORDERED: HE, Gross/Micro L3, Decalcification Pathological Diagnosis Right tibia, biopsy: Soft tissue and bone with reactive changes. Clinical Information Osteomyelitis and ulcer right anterior lower leg Gross Description Part A is received in formalin labeled with the patients name, date of , and right tibia are lopez-doll, granular bone fragments, 2.8 x 1.4 x 0.8 cm in aggregate. Senior Game Advisor sections are submitted in a single cassette after decalcification in rapid Cal[place] immuno. (1, , CA31-019 A) CPT Codes 48479 -------- -------- Specimen: [id number] Received: 12/07/24 Status: MARLEE Alexisrica Num: [id number] Spec Type: Surgical Subm Dr: Radha Brannon,WALTER, MS Tissues: A Bone Fragments - Other than Path Fracture (RIGHT TIBIA) Procedures: ADY, Gross/Micro L3, Decalcification -------- Patient: Monica Acosta [id number] (Continued) -------- Signed (signature on file) Keyla Lewis MD 12/12/24 8726 Normal The [facility] XR Tibia and Fibula - right 2 Viewson 12-06-[address] [address] XRay Report Signed Patient: DAVEMONICA MR#: [id number] : 1960 Acct:[id number] Age/Sex: 63 / F ADM Date: 12/06/24 Loc: SURGOUT Attending Dr: Radha Brannon D.P.M. Ordering Physician: Radha Brannon D.P.M. Date of Service: 12/06/24 Procedure(s): XR tibia fibula RT 2V Accession Number(s): [id number] cc: Radha Brannon D.P.M.; Rudolph Hurt M.D. The [place] [id number] Patient Name: MONICA ACOSTA MRN: [facility]:[id number] date: 1960 Sex: F Assigned Patient Location: SURGOUT Current Patient Location: [facility] Accession/Order Number: [id number] Exam Date: 12/06/2024 14:30 Report Date: 12/06/2024 [...] Solo Hill M.D.12/06/2024 2:32 PM Dictation Location: [place] [address] Electronically authenticated by: [id number] Y Date: 12/06/2024 14:32 Dictated By: Solo Hill D.O. Signed By: 12/06/241434 DD/ 31 TD/TT: Concrete Paving Machine Operator: [facility] Radiology, Radiologist, MD - 12/06/2024 [place] [address] XRay Report Signed Patient: MONICA ACOSTA MR#: [id number] : 1960 Acct:[id number] Age/Sex: 63 / F ADM Date: 12/06/24 Loc: SURGOUT Attending Dr: Radha Brannon D.P.M. Ordering Physician: Radha Brannon D.P.M. Date of Service: 12/06/24 Procedure(s): XR tibia fibula RT 2V Accession Number(s): [id number] cc: Radha Brannon D.P.M.; Rudolph Hurt M.D. [place] [address] Patient Name: MONICA ACOSTA MRN: [facility]:[id number] date: 1960 Sex: F Assigned Patient Location: [facility] Current Patient Location: [facility] Accession/Order Number: [id number] Exam Date: 12/06/2024 14:30 Report Date: 12/06/2024 [...] Solo Hill M.D.12/06/2024 2:32 PM Dictation Location: [place] [address] Electronically authenticated by: [id number] Y Date: 12/06/2024 14:32 Dictated By: Solo Hill D.O. Signed By: 12/06/241434 DD/ 31 TD/TT: Concrete Paving Machine Operator: [facility] [employer] Radiology Study observation (narrative) [facility] XR Tibia and Fibula - right 2 ViewsOrdered By: Radiologist Radiology on 12-06-2024 [facility] [employer] Work Phone: CT Lower extremity - right W O contraston 12-05-[address] [address] [address] Scan Report Signed Patient: MONICA ACOSTA MR#: [id number] : 1960 Acct:[id number] Age/Sex: 63 / F ADM Date: 12/05/24 Loc: CT Attending Dr: Radha Brannon D.P.M. Ordering Physician: Radha Brannon D.P.M. Date of Service: 12/05/24 Procedure(s): CT lower leg RT wo con Accession Number(s): [id number] cc: Rudolph Hurt M.D. The [address] [address] Patient Name: MONICA ACOSTA MRN: [id number] date: 1960 Sex: F Assigned Patient Location: CT Current Patient Location: [facility] Accession/Order Number: [id number] Exam Date: 12/05/2024 14:10 Report Date: 12/05/2024 [...] Solo Hill M.D.12/05/2024 2:22 PM Dictation Location: [place] [address] Electronically authenticated by: [id number] Y Date: 12/05/2024 14:22 Dictated By: Solo Hill D.O. Signed By: 12/05/24 1424 DD/ 1422 TD/TT: Concrete Paving Machine Operator: [facility] Radiology, Radiologist, MD - 12/06/2024 [place] [address] CT Scan Report Signed Patient: MONICA ACOSTA MR#: [id number] : 1960 Acct:[id number] Age/Sex: 63 / F ADM Date: 12/05/24 Loc: CT Attending Dr: Radha Brannon D.P.M. Ordering Physician: Radha Brannon D.P.M. Date of Service: 12/05/24 Procedure(s): CT lower leg RT wo con Accession Number(s): [id number] cc: Rudolph Hurt M.D. The [place] [address] Patient Name: MONICA ACOSTA MRN: [facility]:[id number] date: 1960 Sex: F Assigned Patient Location: CT Current Patient Location: [facility] Accession/Order Number: [id number] Exam Date: 12/05/2024 14:10 Report Date: 12/05/2024 14:22 At the request of: RADHA BRANNON DPM Procedure: CT lower leg RT wo [...] Solo Hill M.D.12/05/2024 2:22 PM Dictation Location: [place] [address] Electronically authenticated by: [id number] Y Date: 12/05/2024 14:22 Dictated By: Solo Hill D.O. Signed By: 12/05/24 1424 DD/ 21 TD/TT: Concrete Paving Machine Operator: [facility] Radiology Study observation (narrative) [facility] CT Lower extremity - right W O contrastOrdered By: Radiologist Radiology on 12-05-2024 [facility] [employer] Work Phone: [place] ECHO DOPPLER COMPLETEon 0 12-03-2024 [place] [address] Cardiology Report Signed Patient: MONICA ACOSTA MR#: [id number] : 1960 Acct:[id number] Age/Sex: 63 / F ADM Date: 12/03/24 Loc: CARD Attending Dr: TY CARTER Ordering Physician: YT CARTER Date of Service: 12/03/24 Procedure(s): CA echo doppler complete Accession Number(s): [id number] cc: TY CARTER; Rudolph Hurt M.D. Patient Name: MONICA ACOSTA MR#: [id number] : 1960 Exam Date: 12/03/2024 Ordering Doctor: [...] Signed By: 12/03/241951 (more content not included)... [facility] Radiology, Radiologist, MD - 12/03/2024 [facility] [place] [id number] Cardiology Report Signed Patient: MONICA ACOSTA MR#: [id number] : 1960 Acct:[id number] Age/Sex: 63 / F ADM Date: 12/03/24 Loc: CARD Attending Dr: TY CARTER Ordering Physician: TY CARTER Date of Service: 12/03/24 Procedure(s): [place] echo doppler complete Accession Number(s): [id number] cc: TY CARTER; Rudolph Hurt M.D. Patient Name: MONICA ACOSTA MR#: [id number] : 1960 Exam Date: 12/03/2024 Ordering Doctor: [...] CARTER Signed By: 12/03/241951 DD/ 50 TD/TT: [employer] Operator: [facility] [employer] Radiology Study observation (narrative) [facility] [place] ECHO DOPPLER COMPLETEOrde red By: Radiologist Radiology on 12-03-2024 [facility] [employer] Work Phone: [facility] APTTon 11-30-2024 aPTT Coag (Bld) [Time] 25.1 s [facility] [employer] No Panel Informationon 11-30 [facility] Office Visiton 11-30-2024 Follow-up visit [id number] Monica Acosta 1960 F Date Provider Department Center 11/30/2024 Maia-TY CARTER [facility] Family History Problem Relation Age of Onset Anesthesia problems Mother Broken bones Mother Osteoporosis Mother Broken bones Father Stroke Father Coronary artery disease Father Family Status - Relation Status Age at Mother Father Level of Service:98669 [place] OFFICE/OUTPATIENT NEW MODERATE MDM 45 MINUTES Normal [facility] SRMCOH PROTHROMBIN TIME INR W/O COUMon 11-30-2024 PT Coag (PPP) [Time] 10.8 s [facility] [employer] TB INR 1.02 [facility] Comment on above: DESIRED INR: 2.0-3.0 CONDITIONS NOT LISTED BELOW 2.5-3.5 FOR PROSTHETIC HEART VALVE REPLACEMENT 2.5-3.5 RECURRENT THROMBOSIS XR OSSEOUS SURVEY LIMITEDon 11-20-2024 XR OSSEOUS SURVEY LIMITED XR OSSEOUS SURVEY LIMITED XR OSSEOUS SURVEY LIMITED Rheumatoid arthritis involving multiple sites, unspecified whether rheumatoid factor present ([facility]) Findings: There is grossly no fracture or [...] Ames MD on 11/20/2024 7:53 AM Normal [facility] CBC AND AUTO DIFFon 11-20-19 ABSOLUTE BASOPHIL 0.1 X10E9/L Normal 0.0-0.2 [facility] Comment on above: Performed By: #### 2 4331-1, 3016-3 #### [facility] ([id number]) [address], [address] [place] [address] ABSOLUTE NEUTROPHIL 5.8 X10E9/L Normal 1.5-6.6 [facility] Comment on above: Performed By: #### 2 4331-1, 3015-3 #### [facility] ([id number]) [address], [address] [place] [address] Basophils/100 WBC (Bld) 1.5 % Normal [facility] Comment on above: Performed By: #### 2 4331-1, 3015-3 #### [facility] ([id number]) [address], [address] [place] [address] Eosinophils (Bld) [#/Vol] 0.3 10*3/uL Normal 0.0-0.4 [facility] Comment on above: Performed By: #### 2 4331-1, 3015-3 #### [facility] ([id number]) [address], [address] [place] [address] Eosinophils/100 WBC (Bld) 3.6 % Normal [facility] Comment on above: Performed By: #### 2 433-1, 3015-3 #### [facility] ([id number]) [address], [address] [place] [address] Erythrocyte distribution width (RBC) [Ratio] 19.0 % High 11.5-15.0 [facility] Comment on above: Performed By: #### 2 4331-1, 3015-3 #### [facility] ([id number]) [address], [address] [place] [address] Hematocrit (Bld) [Volume fraction] 43.6 % Normal 35-47 [facility] Comment on above: Performed By: #### 2 4331-1, 3015-3 #### [facility] ([id number]) [address], [address] [place] [address] Hemoglobin (Bld) [Mass/Vol] 14.6 g/dL Normal 11.7-15.5 [facility] Comment on above: Performed By: #### 2 4331-1, 3015-3 #### [facility] ([id number]) [address], [address] [place] [address] Lymphocytes (Bld) [#/Vol] 1.1 10*3/uL Normal 1.0-3.5 [facility] Comment on above: Performed By: #### 2 4331-1, 3015-3 #### [facility] ([id number]) [address], [address] [place] [address] Lymphocytes/100 WBC (Bld) 14.2 % Normal [facility] Comment on above: Performed By: #### 2 4331-1, 3015- #### [facility] ([id number]) [address], [facility] [address] [place] [address] MCH (RBC) [Entitic mass] 29.8 pg Normal 27-34 [facility] Comment on above: Performed By: #### 2 4331-1, 3015- #### [facility] ([id number]) [address], [address] [place] [address] MCHC (RBC) [Mass/Vol] 33.5 g/dL Normal 32-36 [facility] Comment on above: Performed By: #### 2 4331-1, 3015- #### [facility] ([id number]) [address], [facility] [address] [place] [address] MCV (RBC) [Entitic vol] 89 fL Normal 80-100 [facility] Comment on above: Performed By: #### 2 4331-1, 3015-3 #### [facility] ([id number]) [address], [facility] [address] [place] [address] Monocytes (Bld) [#/Vol] 0.5 10*3/uL Normal 0-0.9 [facility] Comment on above: Performed By: #### 2 4331-1, 3015-3 #### [facility] ([id number]) [address], [address] [place] [address] Monocytes/100 WBC (Bld) 6.2 % Normal [facility] Comment on above: Performed By: #### 2 4331-1, 6-3 #### [facility] ([id number]) [address], [address] [place] [address] Neutrophils/100 WBC (Bld) 74.5 % Normal [facility] Comment on above: Performed By: #### 2 4331-1, 6-3 #### [facility] ([id number]) [address], [address] [place] [address] Platelet mean volume (Bld) [Entitic vol] 9.6 fL Normal 7-12 [facility] Comment on above: Performed By: #### 2 4331-1, 3015-3 #### [facility] ([id number]) [address], [address] [place] [address] Platelets (Bld) [#/Vol] 262 10*3/uL Normal 150-450 [facility] Comment on above: Performed By: #### 2 4331-1, 6-3 #### [facility] ([id number]) [address], [address] [place] [address] RBC COUNT 4.89 X10E12/L Normal 3.80-5.20 [facility] Comment on above: Performed By: #### 2 4331-1, 6-3 #### [facility] ([id number]) [address], [address] [place] [address] WBC (Bld) [#/Vol] 7.8 10*3/uL Normal 4.0-11.0 [facility] Comment on above: Performed By: #### 2 4331-1, 6-3 #### [facility] ([id number]) [address] [address] [place] [address] COMPREHENSIVE METABOLIC PANE Neftali 11-19-2024 Albumin [Mass/Vol] 4.1 g/dL Normal 3.2-5.3 [facility] Comment on above: Performed By: #### 1 5205-8, 3016-3, CMP, 1988-01, CBCA, 2131-9, 14858-4, 33555-2, 08228-5 #### [facility] ([id number]) [address], [address] [place] [address] ALP [Catalytic activity/Vol] 154 U/L High 39-130 [facility] Comment on above: Performed By: #### 1 5-8, 6-3, CMP, 1988-01, CBCA, 2132-05, 92599-8, 29487-1, 10180-4 #### [facility] ([id number]) [address], [address] [place] [address] ALT [Catalytic activity/Vol] 19 U/L Normal 0-31 [facility] Comment on above: Performed By: #### 1 5-8, 6-3, CMP, 1988-01, CBCA, 2132-05, 98977-6, 82198-3, 39662-2 #### [facility] ([id number]) [address], [address] [place] [address] Anion gap [Moles/Vol] 12 mmol/L Normal 5-15 [facility] Comment on above: Performed By: #### 1 5205-8, 3016-3, CMP, 1988-01, CBCA, 2132-05, 01201-8, 59688-6, 29218-5 #### [facility] ([id number]) [address], [address] [place] [address] AST [Catalytic activity/Vol] 28 U/L Normal 0-41 [facility] Comment on above: Performed By: #### 1 5-8, 3016-3, CMP, 1988-01, CBCA, 2131-9, 89863-6, 49097-5, 61728-6 #### [facility] ([id number]) [address], [address] [place] [address] Bilirubin [Mass/Vol] 0.4 mg/dL Normal 0.3-1.2 [facility] Comment on above: Performed By: #### 1 5204-8, 3015-3, CMP, 1988-01, CBCA, 2132-05, 08140-2, 55770-1, 28384-9 #### [facility] ([id number]) [address], [address] [place] [address] Calcium [Mass/Vol] 10.1 mg/dL Normal 8.5-10.5 [facility] Comment on above: Performed By: #### 1 8, 3, CMP, 1988-01, CBCA, 2132-05, 17870-6, 92203-3, 25987-8 #### [facility] ([id number]) [address], [address] [place] [address] Chloride [Moles/Vol] 99 mmol/L Normal 98-109 [facility] Comment on above: Performed By: #### 1 5204-8, 3015-3, CMP, 1988-01, CBCA, 2132-05, 46699-3, 26002-5, 42141-1 #### [facility] ([id number]) [address], [address] [place] [address] CO2 [Moles/Vol] 24 mmol/L Normal 22-32 [facility] Comment on above: Performed By: #### 1 5204-8, 3015-3, CMP, 1988-01, CBCA, 9, 17299-6, 98648-3, 40443-7 #### [facility] ([id number]) [address], [address] [place] [address] Creatinine [Mass/Vol] 1.24 mg/dL High 0.40-1.00 [facility] Comment on above: Result Comment: METH OD TRACEABLE TO IDMS STANDARD Performed By: #### 1 5-8, 3016-3, CMP, 1988-01, CBCA, 2132-05, 49837-7, 68244-3, 52327-6 #### [facility] ([id number]) [address], [address] [place] [address] GFR/1.73 sq M.predicted among non-blacks MDRD (S/P/Bld) [Vol rate/Area] 49 mL/min/{1.73_m2} Low >59 [facility] Comment on above: Result Comment: Reported eGFR is based on the CKD-EPI 2020 equation that does not use a race coefficient. Performed By: #### 1 5204-8, 3015-3, CMP, 1988-01, CBCA, 2132-05, 05565-4, 50141-9, 23386-2 #### [facility] ([id number]) [address], [address] [place] [address] Glucose [Mass/Vol] 189 mg/dL High 65-99 [facility] Comment on above: Performed By: #### 1 5-8, 3015-3, CMP, 1988-01, CBCA, 2132-05, 43798-7, 45414-1, 58095-1 #### [facility] ([id number]) [address], [address] [place] [address] Potassium [Moles/Vol] 5.0 mmol/L Normal 3.5-5.0 [facility] Comment on above: Performed By: #### 1 5-8, 6-3, CMP, 1988-01, CBCA, 2132-05, 82784-7, 76327-4, 03638-1 #### [facility] ([id number]) [address], [address] [place] [address] Protein [Mass/Vol] 7.9 g/dL Normal 6.0-8.0 [facility] Comment on above: Performed By: #### 1 5205-8, 3016-3, CMP, 1988-01, CBCA, 2132-05, 72711-6, 56312-1, 13001-4 #### [facility] ([id number]) [address], [address] [place] [address] Sodium [Moles/Vol] 135 mmol/L Normal 134-146 [facility] Comment on above: Performed By: #### 1 5-8, 6-3, CMP, 1988-01, CBCA, 2132-05, 35353-6, 26222-3, 50373-5 #### [facility] ([id number]) [address], [address] [place] [address] Urea nitrogen [Mass/Vol] 25 mg/dL Normal 5-27 [facility] Comment on above: Performed By: #### 1 5-8, 6-3, CMP, 1988-01, CBCA, 2132-05, 03419-3, 37629-8, 65459-5 #### [facility] ([id number]) [address], [address] [place] [address] CRP [Mass/Vol]on 11-19-2024 C REACTIVE PROTEIN 0.5 mg/dL Normal 0.000-0.[address] [facility] Comment on above: Performed By: #### 2 4331-1, 3015-3 #### [facility] ([id number]) [address], [address] [place] [address] ESR Photometric method (Bld) [Velocity]on 11-19-2024 ESR, ERYTHROCYTE SEDIMENTATION RATE 29 mm/h Normal 0-30 [facility] Comment on above: Performed By: #### 2 4331-1, 3015-3 #### [facility] ([id number]) [address], [address] [place] [address] Rheumatoid factor Nephelomet ry Qn (S)on 11-19-2024 RHEUMATOID FACTOR 54 IU/mL High <20 [facility] Comment on above: Performed By: #### 1 5205-8, 3016-3, CMP, 1988-01, CBCA, 2132-05, 36308-6, 63774-9, 64594-9 #### [facility] ([id number]) [address] [facility] [place] [address] TSH Qnon 11-19-2024 TSH 3.01 uIU/mL Normal 0.49-4.67 [facility] Comment on above: Performed By: #### 1 5205-8, 3016-3, CMP, 1988-01, CBCA, 2132-05, 03462-5, 76466-5, 87953-4 #### [facility] ([id number]) [address] [facility] [facility] [place] [address] VITAMIN B12on 11-19-2024 Cobalamin (Vitamin B12) [Mass/Vol] 279 pg/mL Normal 180-914 [facility] Comment on above: Performed By: #### 2 4331-1, 3016-3 #### [facility] ([id number]) [address] [facility] [place] [address] Vitamin D+Metabolites [Mass/ Vol]on 11-19-2024 VITAMIN D 25 HYD TOT 55.1 ng/mL Normal 30-100 [facility] Comment on above: Result Comment: Vitamin D status 25 [place] Vitamin D Deficiency <20 ng/mL Insufficiency 20-29 ng/mL Sufficiency 30-100 ng/mL Toxicity >100 ng/mL NOTE: A pediatric reference range has not been established by the business development representative of this kit. The [place] [employer] recommends a Vitamin D level of = or >20ng/mL in infants and children. Performed By: #### 2 4331-1, 3016-3 #### [facility] ([id number]) [address] [facility] [place] [address] XR CHEST 2 VWSon 11-19-2024 XR CHEST 2 VWS XR CHEST 2 VWS EXAM: XR CHEST 2 VWS CLINICAL INFORMATION: Rheumatoid arthritis involving multiple sites, unspecified whether rheumatoid factor present ([facility]). COMPARISON: None. FINDINGS: There are low [...] Brenner MD on 11/19/2024 6:46 PM Normal [facility] Follow-Upon 10-15-2024 Follow-Up [id number] Monica Acosta 1960 F Date Provider Department Center 10/15/2024 OCTAVIANO LOZOYA MP ORTHO MPORTHO Family History Problem Relation Age of Onset Anesthesia problems Mother Broken bones Mother Osteoporosis Mother Broken bones Father Family Status - Relation Status Age at Mother Father Level of Service:33408 [place] OFFICE/OUTPATIENT ESTABLISHED LOW MDM 20 MIN (GC) Reason for Visit and Comments: Follow-up [408494] Pain [136] Follow-up [404925] Pain [136] Normal [facility] Glucose (Bld) [Mass/Vol]Orde red By: Meenakshi Heck on 08-21-2024 Glucose Blood, POC 100 mg/dL [facility] Hematology and Cell countson 08-21-2024 HbA1c (Bld) [Mass fraction] 7.5 % [facility] No Panel InformationOrdered By: Meenakshi Heck on 08-21-2024 [facility] Follow-Upon 08-13-2024 Follow-Up [id number] Monica Acosta 1960 F Date Provider Department Center 08/13/2024 OCTAVIANO LOZOYA MP ORTHO MPORTHO Family History Problem Relation Age of Onset Anesthesia problems Mother Broken bones Mother Osteoporosis Mother Broken bones Father Family Status - Relation Status Age at Mother Father Level of Service:87514 [place] OFFICE/OUTPATIENT ESTABLISHED LOW MDM 20 MIN (GC) Reason for Visit and Comments: Follow-up [265283] Pain [136] Follow-up [991866] Pain [136] [facility] Office Visiton 07-09-2024 Follow-up visit [id number] Monica Acosta 1960 Date Provider Department Center 07/09/2024 OCTAVIANO LOZOYA MP ORTHO MPORTHO Family History Problem Relation Age of Onset Anesthesia problems Mother Broken bones Mother Osteoporosis Mother Broken bones Father Family Status - Relation Status Age at Mother Father Level of Service:76425 [place] POSTOP FOLLOW UP VISIT RELATED TO ORIGINAL PX (GC) Reason for Visit and Comments: Post-op [483] Post-op [483] [facility] Office Visiton 06-11-2024 Follow-up visit [id number] Oswald 1960 Provider Department Center 06/11/2024 OCTAVIANO LOZOYA MP ORTHO MPORTHO Family History Problem Relation Age of Onset Anesthesia problems Mother Broken bones Mother Osteoporosis Mother Broken bones Father Family Status - Relation Status Age at Mother Father Level of Service:66788 [place] POSTOP FOLLOW UP VISIT RELATED TO ORIGINAL PX (GC) Reason for Visit and Comments: Post-op [483] Pain [136] Post-op [483] Pain [136] [facility] 36on 05-15-2024 36 Looks like patient told Dr Shipman was already taking these medications. Dr shipman did not prescribe patient anything. She will need to contact pcp office. [facility] 36 Kady from [facility] called for clarification on calcium and vit D3 order from , [facility] does not currently have an order for calcium and vit D3 for patient, please fax clarification to Fax:[phone] [facility] Office Visiton 05-14-2024 Follow-up visit [id number] Oswald 1960 Date Provider Department Center 05/14/2024 OCTAVIANO LOZOYA MP MPORTHO Family History Problem Relation Age of Onset Anesthesia problems Mother Broken bones Mother Osteoporosis Mother Broken bones Father Family Status - Relation Status Age at Mother Father Level of Service:84694 [place] POSTOP FOLLOW UP VISIT RELATED TO ORIGINAL PX Reason for Visit and Comments: Post-op [483] Pain [136] Post-op [483] Pain [136] Normal [facility] BASIC METABOLIC PANLon 04-13 Anion gap [Moles/Vol] 10 mmol/L Normal 5-15 [facility] Comment on above: Performed By: #### B MP #### [facility] ([id number]) [address] [facility] [address] [place] [address] Calcium [Mass/Vol] 9.9 mg/dL Normal 8.5-10.5 [facility] Comment on above: Performed By: #### B MP #### [facility] ([id number]) [address] [place] [address] Chloride [Moles/Vol] 100 mmol/L Normal 98-109 [facility] Comment on above: Performed By: #### B MP #### [facility] ([id number]) [address] [place] [address] CO2 [Moles/Vol] 27 mmol/L Normal 22-32 [facility] Comment on above: Performed By: #### B MP #### [facility] ([id number]) [address] [place] [address] Creatinine [Mass/Vol] 0.92 mg/dL Normal 0.40-1.00 [facility] Comment on above: Result Comment: METH OD TRACEABLE TO IDMS STANDARD Performed By: #### B MP #### [facility] ([id number]) [address] [place] [address] GFR/1.73 sq M.predicted among non-blacks MDRD (S/P/Bld) [Vol rate/Area] 70 mL/min/{1.73_m2} Normal >59 [facility] Comment on above: Result Comment: Reported eGFR is based on the CKD-EPI 2020 equation that does not use a race coefficient. Performed By: #### B MP #### [facility] ([id number]) [address] [place] [address] Glucose [Mass/Vol] 151 mg/dL High 65-99 [facility] Comment on above: Performed By: #### B MP #### [facility] ([id number]) [address] [place] [address] Potassium [Moles/Vol] 4.5 mmol/L Normal 3.5-5.0 [facility] Comment on above: Performed By: #### B MP #### [facility] ([id number]) [address] [place] [address] Sodium [Moles/Vol] 137 mmol/L Normal 134-146 [facility] Comment on above: Performed By: #### B MP #### [facility] ([id number]) [address] [place] [address] Urea nitrogen [Mass/Vol] 28 mg/dL High 5-27 [facility] Comment on above: Performed By: #### B MP #### [facility] ([id number]) [address] [place] [address] DRUG SCREEN, URINEon 024 AMPHETAMINE/METHAMP Negative Normal NEG [facility] Comment on above: Result Comment: AMPH /METH screening cut off = 1000 ng/mL Performed By: #### D SELENA DEKCER #### [facility] ([id number]) [address] [place] [address] BARBITURATES Negative Normal NEG [facility] Comment on above: Result Comment: Juana iturates screening cut off value = 200 ng/mL Performed By: #### Jero DECKER SELENA #### [facility] ([id number]) [address] [place] [address] BENZODIAZEPINES Negative Normal [facility] Comment on above: Result Comment: Wade odiazepines screening cut off value = 200 ng/mL Performed By: #### Jero DECKER, SELENA #### [facility] ([id number]) [address] [place] [address] CANNABINOIDS Negative Normal NEG [facility] Comment on above: Result Comment: Venus abinoids/THC screening cut off value = 50 ng/mL Performed By: #### Jero DECKER FINESSEDRAGAN #### [facility] ([id number]) [address] [place] [address] COCAINE METABOLITE Negative Normal NEG [facility] Comment on above: Result Comment: Coca ine screening cut off value = 300 ng/mL Performed By: #### Jero DECKER FINESSEDRAGAN #### [facility] ([id number]) [address] [place] [address] ECSTASY Negative Normal [facility] Comment on above: Result Comment: Ecst asy screening cut off value = 500 ng/mL This report is intended for use in clinical monitoring or management of patients. Performed By: #### Jero DECKER FINESSEDRAGAN #### [facility] ([id number]) [address] [place] [address] METHADONE Negative Normal [facility] Comment on above: Result Comment: Meth adone screening cut off value = 300 ng/mL. Performed By: #### Jero DECKER FINESSEDRAGAN #### [facility] ([id number]) [address] [place] [address] OPIATES Negative Normal NEG [facility] Comment on above: Result Comment: Opia rafal screening cut off value = 300 ng/mL NOTE: This test is used for the detection of codeine, hydrocodone (>1000 ng/mL), morphine and hydromorphone (>900 ng/mL) in urine. Performed By: #### SELENA STINSON #### [facility] ([id number]) [address] [place] [address] OXYCODONE Negative Normal NEG [facility] Comment on above: Result Comment: Oxyc odone screening cut off value = 300 ng/mL NOTE: This test is used for the detection of oxycodone and oxymorphone in urine. Performed By: #### SELENA STINSON #### [facility] ([id number]) [address], [address] [place] [address] PHENCYCLIDINE Negative Normal NEG [facility] Comment on above: Result Comment: Phen cyclidine screening cut off value = 25 ng/mL Performed By: #### SELENA STINSON #### [facility] ([id number]) [address], [address] [place] [id number] MICROALBUMIN - ALBUMIN:CREAT ININE URINE RATIOon 03-27-2024 ALB/CREAT RATIO 37.7 mg/g creat High 0.0-30.0 [facility] [place] Comment on above: Performed By: #### SELENA STINSON #### [facility] ([id number]) [address] [address] Albumin DL <= 20 mg/L (U) [Mass/Vol] 2.0 mg/dL High 0.0-1.9 [facility] Comment on above: Performed By: #### Jero DECKER FINESSEDRAGAN #### [facility] ([id number]) [address], [address] [place] [address] URINE CREAT 53.06 mg/dL Normal [facility] Comment on above: Performed By: #### SELENA STINSON #### [facility] ([id number]) [address], [address] [place] [address] COMPLETE BLOOD COUNTon 03-26 Erythrocyte distribution width (RBC) [Ratio] 14.4 % Normal 11.5-15.0 [facility] Comment on above: Performed By: #### C SHEEBA, CMP #### [facility] ([id number]) [address] [place] [address] Hematocrit (Bld) [Volume fraction] 40.1 % Normal 35-47 [facility] Comment on above: Performed By: #### C SHEEBA, CMP #### [facility] ([id number]) [address], [address] [place] [address] Hemoglobin (Bld) [Mass/Vol] 13.5 g/dL Normal 11.7-15.5 [facility] Comment on above: Performed By: #### C SHEEBA, CMP #### [facility] ([id number]) [address], [address] [place] [address] MCH (RBC) [Entitic mass] 30.8 pg Normal 27-34 [facility] Comment on above: Performed By: #### C SHEEBA, CMP #### [facility] ([id number]) [address] [place] [address] MCHC (RBC) [Mass/Vol] 33.7 g/dL Normal 32-36 [facility] Comment on above: Performed By: #### C SHEEBA, CMP #### [facility] ([id number]) [address], [address] [place] [address] MCV (RBC) [Entitic vol] 91 fL Normal 80-100 [facility] Comment on above: Performed By: #### C SHEEBA, CMP #### [facility] ([id number]) [address], [address] [place] [address] Platelet mean volume (Bld) [Entitic vol] 9.8 fL Normal 7-12 [facility] Comment on above: Performed By: #### C BC, CMP #### [facility] ([id number]) [address], [address] [place] [address] Platelets (Bld) [#/Vol] 308 10*3/uL Normal 150-450 [facility] Comment on above: Performed By: #### C BC, CMP #### [facility] ([id number]) [address], [address] [place] [address] RBC COUNT 4.39 X10E12/L Normal 3.80-5.20 [facility] Comment on above: Performed By: #### C BC, CMP #### [facility] ([id number]) [address], [address] [place] [address] WBC (Bld) [#/Vol] 10.1 10*3/uL Normal 4.0-11.[address] [facility] Comment on above: Performed By: #### C SHEEBA, CMP #### [facility] ([id number]) [address], [address] [place] [address] COMPREHENSIVE METABOLIC PANE Neftail 03-26-2024 Albumin [Mass/Vol] 3.8 g/dL Normal 3.2-5.3 [facility] Comment on above: Performed By: #### C BC, CMP #### [facility] ([id number]) [address], [address] [place] [address] ALP [Catalytic activity/Vol] 133 U/L High 39-130 [facility] Comment on above: Performed By: #### C BC, CMP #### [facility] ([id number]) [address], [address] [place] [address] ALT [Catalytic activity/Vol] 22 U/L Normal 0-31 [facility] Comment on above: Performed By: #### C BC, CMP #### [facility] ([id number]) [address], [address] [place] [address] Anion gap [Moles/Vol] 7 mmol/L Normal 5-15 [facility] Comment on above: Performed By: #### C SHEEBA, CMP #### [facility] ([id number]) [address] [place] [address] AST [Catalytic activity/Vol] 24 U/L Normal 0-41 [facility] Comment on above: Performed By: #### C SHEEBA, CMP #### [facility] ([id number]) [address] [place] [address] Bilirubin [Mass/Vol] 0.4 mg/dL Normal 0.3-1.2 [facility] Comment on above: Performed By: #### C SHEEBA, CMP #### [facility] ([id number]) [address], [address] [place] [address] Calcium [Mass/Vol] 9.6 mg/dL Normal 8.5-10.5 [facility] Comment on above: Performed By: #### C SHEEBA, CMP #### [facility] ([id number]) [address], [address] [place] [address] Chloride [Moles/Vol] 102 mmol/L Normal 98-109 [facility] Comment on above: Performed By: #### Sheila ALY, CMP #### [facility] ([id number]) [address], [address] [place] [address] CO2 [Moles/Vol] 28 mmol/L Normal 22-32 [facility] Comment on above: Performed By: #### C SHEEBA, CMP #### [facility] ([id number]) [address], [address] [place] [address] Creatinine [Mass/Vol] 0.96 mg/dL Normal 0.40-1.00 [facility] Comment on above: Result Comment: METH OD TRACEABLE TO IDMS STANDARD Performed By: #### C SHEEBA, CMP #### [facility] ([id number]) [address], [address] [place] [address] GFR/1.73 sq M.predicted among non-blacks MDRD (S/P/Bld) [Vol rate/Area] 66 mL/min/{1.73_m2} Normal >59 [facility] Comment on above: Result Comment: Reported eGFR is based on the CKD-EPI 2020 equation that does not use a race coefficient. Performed By: #### C BC, CMP #### [facility] ([id number]) [address] [place] [address] Glucose [Mass/Vol] 179 mg/dL High 65-99 [facility] Comment on above: Performed By: #### C BC, CMP #### [facility] ([id number]) [address] [address] [address] [place] [address] Potassium [Moles/Vol] 5.1 mmol/L High 3.5-5.0 [facility] Comment on above: Performed By: #### C BC, CMP #### [facility] ([id number]) [address] [address] [place] [address] Protein [Mass/Vol] 7.2 g/dL Normal 6.0-8.0 [facility] Comment on above: Performed By: #### C BC, CMP #### [facility] ([id number]) [address], [address] [place] [address] Sodium [Moles/Vol] 137 mmol/L Normal 134-146 [facility] Comment on above: Performed By: #### C BC, CMP #### [facility] ([id number]) [address] [address] [address] [place] [address] Urea nitrogen [Mass/Vol] 23 mg/dL Normal 5-27 [facility] Comment on above: Performed By: #### C BC, CMP #### [facility] ([id number]) [address] [place] [address] Lipid 1996 panelon 4 Cholesterol [Mass/Vol] 106 mg/dL Low 150 - 200 mg/dL [facility] Cholesterol in HDL [Mass/Vol] 46 mg/dL 39 - PINF mg/dL [facility] Comment on above: HDL <40 mg/dL - High Risk HDL > or = 40mg/dL- Desirable HDL >60 mg/dL - Negative Risk Cholesterol in LDL [Mass/Vol] 38 mg/dL NINF - 130 mg/dL [facility] Comment on above: LDL <100 mg/dL - Desirable LDL >160 mg/dL - High Risk Cholesterol in VLDL [Mass/Vol] 22 mg/dL 0 - 30 mg/dL [facility] Cholesterol.total/Cho lesterol in HDL [Mass ratio] 2.3 {ratio} 1.0 - 5.0 [facility] Interpretation and review of laboratory results Abnormal [facility] Triglyceride [Mass/Vol] 110 mg/dL 27 - 150 mg/dL [facility] Cholesterol [Mass/Vol] 106 mg/dL Low 150-200 [facility] Comment on above: Performed By: #### 2 4331-1, 3016-3 #### [facility] ([id number]) [address], [address] [place] [address] Cholesterol in HDL [Mass/Vol] 46 mg/dL Normal >39 [facility] Comment on above: Result Comment: HDL <40 mg/dL - High Risk HDL > or = 40mg/dL- Desirable HDL >60 mg/dL - Negative Risk Performed By: #### 2 4331-1, 3015-3 #### [facility] ([id number]) [address] [place] [address] Cholesterol in LDL [Mass/Vol] 38 mg/dL Normal <130 [facility] Comment on above: Result Comment: LDL <100 mg/dL - Desirable LDL >160 mg/dL - High Risk Performed By: #### 2 4331-1, 3015-3 #### [facility] ([id number]) [address] [place] [address] Cholesterol in VLDL [Mass/Vol] 22 mg/dL Normal 0-30 [facility] Comment on above: Performed By: #### 2 4331-1, 3015-3 #### [facility] ([id number]) [address], [address] [place] [address] CHOLESTEROL:HDL 2.3 Normal 1.0-5.0 [facility] Comment on above: Performed By: #### 2 4331-1, 3015-3 #### [facility] ([id number]) [address] [place] [address] Triglyceride [Mass/Vol] 110 mg/dL Normal 27-150 [facility] Comment on above: Performed By: #### 2 4331-1, 6-3 #### [facility] ([id number]) [address] [place] [address] TSHon 12-05-2023 TSH Qn 3.00 m[IU]/L [facility] TSH Qnon 12-05-2023 [facility] TSH 3.00 uIU/mL Normal 0.49-4.67 [facility] Comment on above: Performed By: #### 2 4331-1, 6-3 #### [facility] ([id number]) [address] [facility] [place] [address] POINT OF CARE GLUCOSEon 10-06 Glucose [Mass/Vol] 252 mg/dL Critically high 74-106 [facility] Comment on above: Performed By: #### P OCGLUC ####[facility] [address] [place] [address]Dr. Abiel Clement PROF CHEM 8 (BAS METB)on Anion gap [Moles/Vol] 11.5 mmol/L Normal [facility] Comment on above: Performed By: #### B MP ####[facility] [address] [place], [place] [address]Dr. Abiel Clement Calcium [Mass/Vol] 9.6 mg/dL Normal 8.5-10.1 [facility] Comment on above: Performed By: #### B MP ####[facility] [address] [place], [place] [address]Dr. Abiel Clement Chloride [Moles/Vol] 102 mmol/L Normal 98-107 [facility] Comment on above: Performed By: #### B MP ####[facility] [address] [place], [place] [address]Dr. Abiel Clement CO2 [Moles/Vol] 30.8 mmol/L Normal 21.0-32.0 [facility] Comment on above: Performed By: #### B MP ####[facility] [address] [place], [place] [address]Dr. Abiel Clement Creatinine [Mass/Vol] 0.72 mg/dL Normal 0.55-1.02 [facility] Comment on above: Performed By: #### B MP ####[facility] [address] [place], [place] [address]Dr. Abiel Clement EGFR-AF ALBANIAN >60 Normal >=60 [facility] Comment on above: Performed By: #### B MP ####[facility] [address] [place], [place] [address]Dr. Abiel Clement EGFR-NON AF ALBANIAN >60 Normal >=60 [facility] Comment on above: Performed By: #### B MP ####[facility] [address] [place] [address]Dr. Abiel Clement Glucose [Mass/Vol] 127 mg/dL Critically high 74-106 [facility] Comment on above: Performed By: #### B MP ####[facility] [address] [place] [address]Dr. Abiel Clement Potassium [Moles/Vol] 4.3 mmol/L Normal 3.5-5.1 [facility] Comment on above: Performed By: #### B MP ####[facility] [address] [place], [place] [address]Dr. Abiel Clement Sodium [Moles/Vol] 140 mmol/L Normal 136-145 [facility] Comment on above: Performed By: #### B MP ####[facility] [address] [place], [place] [address]Dr. Abiel Clement Urea nitrogen [Mass/Vol] 17.0 mg/dL Normal 7.0-18.0 [facility] Comment on above: Performed By: #### B MP ####[facility] X[address] [place], [place] [address]Dr. Abiel Clement Urea nitrogen/Creatinine [Mass ratio] 23.6 mg/mg Normal [facility] Comment on above: Performed By: #### B MP ####[facility] Qiouv[address]ntu[address] [place], [place] [address]Dr. Abiel Clement CULTURE URINEon 08-07-2022 CULTURE URINE Normal [facility] Comment on above: Performed By: #### U RCX ####[facility] [address] [place] [id number]. Abiel Clement CBC W MANUAL DIFFon 08-05-20 ANISOCYTOSIS SLIGHT Normal [facility] Comment on above: Performed By: #### C ALVINO ####[facility] [address] [place] [address]Dr. Abiel Clement ATYPICAL LYMPH # Normal [facility] Comment on above: Performed By: #### C BCALLY ####[facility] [address] [place] [id number]. Abile Clement ATYPICAL LYMPH % Normal [facility] Comment on above: Performed By: #### C BCMAN ####[facility] [address] [place] [id number]. Abiel Clement BAND # 0.6 103/ul Critically high 0.0-0.3 [facility] Comment on above: Performed By: #### C BCALLY ####[facility] [address] [place] [address]Dr. Yilan Clement BAND % 3 % Normal 0-5 [facility] Comment on above: Performed By: #### C BCALLY ####[facility] [address] [place], [place] [address]Dr. Abiel Clement BASOM # 0.00 103/ul Normal 0.00-0.10 [facility] Comment on above: Performed By: #### C BCALLY ####[facility] [address] [place], [place] [address]Dr. Abiel Clement BASOM % 0.0 % Critically low 0.2-2.0 [facility] Comment on above: Performed By: #### C BCALLY ####[facility] [address] [place], [place] [address]Dr. Abiel Clement BLAST # Normal [facility] Comment on above: Performed By: #### C ALVINO ####[facility] [address] [place] [address]Dr. Yilan Clement BLAST % Normal [facility] Comment on above: Performed By: #### C ALVINO ####[facility] [address] [place] [address]Dr. Abiel Cleemnt CORRECTED WBC Normal 4.0-11.0 [facility] Comment on above: Performed By: #### C BCALLY ####[facility] [address] [place] [address]Dr. Abiel Clement EOS # 0.00 103/ul Normal 0.00-0.70 [facility] Comment on above: Performed By: #### C BCALLY ####[facility] [address] [place], [place] [address]Gi. Abiel Clement EOS% 0.0 % Critically low 0.9-7.0 [facility] Comment on above: Performed By: #### C ALVINO ####[facility] [address] [place], [place] [address]Ob. Abiel Clement HCT 34.0 % Critically low 36.0-48.0 [facility] Comment on above: Performed By: #### C ALVINO ####[facility] [address] [place], [place] [address]Mf. Abiel Clement HGB 10.8 g/dl Critically low 12.0-16.0 [facility] Comment on above: Performed By: #### C ALVINO ####[facility] [address] [place], [place] [address]St. Abiel Clement LYMPHM # 0.61 103/ul Critically low 1.20-3.80 [facility] Comment on above: Performed By: #### C ALVINO ####[facility] [address] [place], [place] [address]Um. Abiel Clement LYMPHM% 3.0 % Critically low 20.5-60.0 [facility] Comment on above: Performed By: #### C ALVINO ####[facility] [address] [place], [place] [address]Ld. Abiel Clement MCH 27.3 pg Normal 26.7-34.0 [facility] Comment on above: Performed By: #### C ALVINO ####[facility] [address] [place], [place] [address]Ed. Abiel Clement MCHC 31.8 g/dl Normal 29.9-35.2 [facility] Comment on above: Performed By: #### C ALVINO ####[facility] [address] [place], [place] [address]Mu. Abiel Clement MCV 85.9 fL Normal 81.0-99.0 [facility] Comment on above: Performed By: #### C ALVINO ####[facility] [address] [place] [id number]. Abiel Clement METAMYELOCYTE # Normal [facility] Comment on above: Performed By: #### C ALVINO ####[facility] [address] [place] [id number]. Abiel Clement METAMYELOCYTE % Normal [facility] Comment on above: Performed By: #### C ALVINO ####[facility] [address] [place] [id number]. Abiel Clement MONOM# 1.01 103/ul Critically high 0.30-0.80 [facility] Comment on above: Performed By: #### C ALVINO ####[facility] [address]ols[address] [place] [id number]. Abiel Clement MONOM% 5.0 % Normal 1.7-12.0 [facility] Comment on above: Performed By: #### C ALVINO ####[facility] [address] [place], [place] [address]Dr. Abiel Urbano MPV 11.1 fL Normal 9.5-13.5 [facility] Comment on above: Performed By: #### C ALVINO ####[facility] [address] [place], [place] [address]Dr. Abiel Clement MYELOCYTE # Normal [facility] Comment on above: Performed By: #### C ALVINO ####[facility] [address] [place], [place] [address]Dr. Abiel Urbano MYELOCYTE % Normal [facility] Comment on above: Performed By: #### C ALVINO ####[facility] [address]fwfo[address] [place], [place] [address]Dr. Abiel Urbano NRBC Normal [facility] Comment on above: Performed By: #### C ALVINO ####[facility] [address]uzfe[address] [place], [place] [address]Dr. Suyapaviviana Urbano PLT 283 103/ul Normal 150-450 [facility] Comment on above: Performed By: #### C ALVINO ####[facility] [address] [place], [place] [address]Dr. Abiel Urbano RBC 3.96 106/ul Critically low 4.20-5.40 [facility] Comment on above: Performed By: #### C ALVINO ####[facility] [address]cul[address] [place] [address]Dr. Abiel Clement RDW 15.4 % Critically high 11.0-15.0 [facility] Comment on above: Performed By: #### C ALVINO ####[facility] [address]treb[address] [place] [address]Dr. Abiel Clement SEG # 18.07 103/ul Critically high 1.40-6.50 [facility] Comment on above: Performed By: #### C ALVINO ####[facility] [address]me[address] [place], [place] [address]Dr. Abiel Clement SEG % 89.0 % Critically high 43.0-75.0 [facility] Comment on above: Performed By: #### C ALVINO ####[facility] [address]xzi[address] [place], [place] [address]Dr. Abiel Urbano WBC 20.3 103/ul Critically high 4.0-11.0 [facility] Comment on above: Performed By: #### Sheila DE OLIVEIRA ####[facility] [address]pcp[address] [place], [place] [address]DrKasia Abiel Urbano LACTATE/LACTIC ACIDon 2021 Lactate [Moles/Vol] 2.5 mmol/L Critically high 0.4-1.9 [facility] Comment on above: Performed By: #### L ACT ####[facility] [address]ys[address] [place] [address]Dr. Abiel Urbano POINT OF CARE GLUCOSEon Glucose [Mass/Vol] 238 mg/dL Critically high 74-106 [facility] [place] [facility] Comment on above: Performed By: #### P OCGLUC ####[facility] [address] [place] [address]DrKasia Suyapaviviana Clement PROF CHEM 8 (BAS METB)on Anion gap [Moles/Vol] 10.8 mmol/L Normal [facility] Comment on above: Performed By: #### B MP ####[facility] [address] [place] [address]Dr. Abiel Clement Calcium [Mass/Vol] 8.4 mg/dL Critically low 8.5-10.1 [facility] Comment on above: Performed By: #### B MP ####[facility] [address] [place] [address]Dr. Abiel Clement Chloride [Moles/Vol] 103 mmol/L Normal 98-107 [facility] Comment on above: Performed By: #### B MP ####[facility] [address] [place] [address]Dr. Abiel Clement CO2 [Moles/Vol] 27.0 mmol/L Normal 21.0-32.0 [facility] Comment on above: Performed By: #### B MP ####[facility] S[address]cmh[address] [place], [place] [address]Dr. Abiel Clement Creatinine [Mass/Vol] 1.02 mg/dL Normal 0.55-1.02 [facility] Comment on above: Performed By: #### B MP ####[facility] [address]ws[address] [place], [place] [address]Dr. Abiel Clement EGFR-AF ALBANIAN >60 Normal >=60 [facility] Comment on above: Performed By: #### B MP ####[facility] [address]ct[address]vfo[address] [place], [place] [address]Dr. Abiel Urbano EGFR-NON AF ALBANIAN 55 mL/min/1.73m2 Critically low >=60 [facility] Comment on above: Performed By: #### B MP ####[facility] Um[address]wn[address] [place], [place] [address]Dr. Abiel Clement Glucose [Mass/Vol] 199 mg/dL Critically high 74-106 [facility] [place] [facility] Comment on above: Performed By: #### B MP ####[facility] [address]ib[address] [place], [place] [address]Dr. Abiel lCement Potassium [Moles/Vol] 3.8 mmol/L Normal 3.5-5.1 [facility] Comment on above: Performed By: #### B MP ####[facility] [address]hey[address] [place] [id number]. Abiel Clement Sodium [Moles/Vol] 137 mmol/L Normal 136-145 [facility] Comment on above: Performed By: #### B MP ####[facility] [address] [place] [id number]. Abiel Clement Urea nitrogen [Mass/Vol] 21.0 mg/dL Critically high 7.0-18.0 [facility] Comment on above: Performed By: #### B MP ####[facility] [address]wgbl[address] [place], [place] [address]Dr. Abiel Urbano Urea nitrogen/Creatinine [Mass ratio] 20.6 mg/mg Normal [facility] Comment on above: Performed By: #### B MP ####[facility] Tupfmuyfa[address] [place], [place] [address]Dr. Abiel Urbano ACETONE SERUMon 08-04-2022 ACETONE Negative Normal NEGATIVE [facility] Comment on above: Performed By: #### A CETON ####[facility] Az[address]wlxn[address] [place], [place] [address]Dr. Abiel Urbano AMMONIAon 08-04-2022 Ammonia (P) [Moles/Vol] 24 umol/L Normal 11-32 [facility] Comment on above: Performed By: #### A MM ####[facility] [address]mp[address]pt[address] [place], [place] [address]Dr. Abiel Urbano CBC AUTO DIFFon 08-04-2022 BASO # 0.0 103/ul Normal 0.0-0.1 [facility] Comment on above: Performed By: #### C BC ####[facility] [address]quimrm[address] [place], [place] [address]Dr. Suyapaviviana Clement Basophils/100 WBC (Bld) 0.3 % Normal 0.2-2.0 [facility] Comment on above: Performed By: #### C BC ####[facility] [address]rmkizd[address] [place], [place] [address]Dr. Abiel Clement EO # 0.0 103/ul Normal 0.0-0.7 [facility] Comment on above: Performed By: #### C BC ####[facility] [address] [place] [address]Dr. Abiel Clement Eosinophils/100 WBC (Bld) 0.4 % Critically low 0.9-7.0 [facility] Comment on above: Performed By: #### C BC ####[facility] Xmdrt[address]ly[address] [place], [place] [address]Dr. Abiel Clement Erythrocyte distribution width (RBC) [Ratio] 15.1 % Critically high 11.0-15.0 [facility] Comment on above: Performed By: #### C BC ####[facility] [address] [place], [place] [address]Dr. Abiel Clement Hematocrit (Bld) [Volume fraction] 37.7 % Normal 36.0-48.0 [facility] Comment on above: Performed By: #### C BC ####[facility] [address] [place], [place] [address]Dr. Abiel Clement Hemoglobin (Bld) [Mass/Vol] 12.4 g/dL Normal 12.0-16.0 [facility] Comment on above: Performed By: #### C BC ####[facility] [address] [place], [place] [address]Dr. Abiel Clement IG # 0.02 10e3/ul Normal 0.00-0.03 [facility] Comment on above: Performed By: #### C BC ####[facility] [address]okc[address] [place], [place] [address]Dr. Abiel Clement IG % 0.2 % Normal 0.0-0.5 [facility] Comment on above: Performed By: #### C BC ####[facility] Ul[address]kilobzh[address] [place], [place] [address]Dr. Abiel Clement LYMPH # 0.6 103/ul Critically low 1.2-3.8 [facility] Comment on above: Performed By: #### C BC ####[facility] Qpvihhlouz[address] [place], [place] [address]Dr. Abiel Clement Lymphocytes/100 WBC (Bld) 6.8 % Critically low 20.5-60.0 [facility] Comment on above: Performed By: #### C BC ####[facility] [address]exxgjdtdr[address] [place] [address]Dr. Abiel Clement MANUAL DIFF REQ NO Normal [facility] Comment on above: Performed By: #### C BC ####[facility] Tbymoxdtad8[address] [place] [id number]. Abile Clement MCH (RBC) [Entitic mass] 27.7 pg Normal 26.7-34.0 [facility] Comment on above: Performed By: #### C BC ####[facility] Jejnwomesm[address] [place] [address]Dr. Abiel Clement MCHC (RBC) [Mass/Vol] 32.9 g/dL Normal 29.9-35.2 [facility] Comment on above: Performed By: #### C BC ####[facility] Gdzgzxkqxf[address] [place], [place] [address]Dr. Abiel Clement MCV (RBC) [Entitic vol] 84.2 fL Normal 81.0-99.0 [facility] Comment on above: Performed By: #### C BC ####[facility] Vmyvjaljjo[address] [place], [place] [address]Dr. Abiel Clement MONO # 0.4 103/ul Normal 0.3-0.8 [facility] Comment on above: Performed By: #### C BC ####[facility] Ychcgmzhrn[address] [place] [address]Dr. Abiel Clement Monocytes/100 WBC (Bld) 4.7 % Normal 1.7-12.0 [facility] Comment on above: Performed By: #### C BC ####[facility] Rlwgkhlumk[address] [place], [place] [address]DrKasia Clement NEUT # 8.1 103/ul Critically high 1.4-6.5 [facility] Comment on above: Performed By: #### C BC ####[facility] Xyxjfgtofo19[address] [place] [address]Dr. Abiel Clement Neutrophils/100 WBC (Bld) 87.6 % Critically high 43.0-75.0 [facility] Comment on above: Performed By: #### C BC ####[facility] Fjevjshrze32[address] [place] [id number]. Abiel Clement Platelet mean volume (Bld) [Entitic vol] 10.5 fL Normal 9.5-13.5 [facility] Comment on above: Performed By: #### C BC ####[facility] Srlpkipesq7434 [place] [id number]. Abiel Clement PLT 286 103/ul Normal 150-450 [facility] Comment on above: Performed By: #### C BC ####[facility] Tcthtrdxoi8294 [place] [id number]. Abiel Clement RBC 4.48 106/ul Normal 4.20-5.40 [facility] Comment on above: Performed By: #### C BC ####[facility] Meyffeszwf3894 [place] [id number]. Abiel Clement WBC 9.2 103/ul Normal 4.0-11.0 [facility] Comment on above: Performed By: #### C BC ####[facility] Fmqhnkupsm[address] [place] [id number]. Abiel Clement CT ABD/PELV W CONon 08-04-20 CT ABD/PELV W CON Normal [facility] CT HEAD WO CONon 08-04-2022 CT HEAD WO CON Normal [facility] CULTURE BLOODon 08-04-2022 Microscopic examination of blood, culture Culture Observations: NO GROWTH AT 5 DAYS. Normal [facility] Comment on above: Performed By: #### B LDCX1 ####[facility] Tawvcoforr[address] [place] [address]Dr. Abiel Clement Performed By: #### B LDCX2 ####[facility] Adhliytumt9[address] [place] [address]Dr. Abiel Clement Covid-19 PCR (CVDTB)on 07-08 SARS-CoV-2 (COVID-19) RNA CLARIBEL+probe Ql (Unsp spec) Not detected Normal NOT DETECTED [facility] Comment on above: Result Comment: When [...] for this test is supported by the [employer] and Human Service's declaration that [...] be used). Performed By: #### C VDTBH ####[facility] Awsfqhrxnv497[address] [place], [place] [address]Dr. Abiel Clement DRUG SCREEN RAPID (URINE)on 08-04-2022 AMP Negative Normal NEGATIVE [facility] Comment on above: Performed By: #### D RUGRPD ####[facility] Tqvaymrenb312[address] [place], [place] [address]Dr. Abiel Clement BAR Negative Normal NEGATIVE [facility] Comment on above: Performed By: #### D RUGRPD ####[facility] Bghhszzbzt7931 [place] [id number]. Abiel Clement BUP Negative Normal NEGATIVE [facility] Comment on above: Performed By: #### D RUGRPD ####[facility] Ivhzbslsme6317 [place] [id number]. Abiel Clement BZO Negative Normal NEGATIVE [facility] Comment on above: Performed By: #### D RUGRPD ####[facility] Kwuoaiiuvo9563 [place] [id number]. Abiel Clement CAROLINE Negative Normal NEGATIVE [facility] Comment on above: Performed By: #### D RUGRPD ####[facility] Tcdauhebdz[address] [place], [place] [id number]. Abiel Clement CUT-OFFS SEE BELOW Normal [facility] Comment on above: Result Comment: AMP (Amphetamine): 500ng/mL, BAR (Barbituates): 200 ng/mL, BZO (Benzodiazepines): 150 ng/mL, BUP (Buprenorphine): 10 ng/mL, CAROLINE (Cocaine): 150 ng/mL, mAMP (Methamphetamine): 500 ng/mL, MTD (Methadone): 200 ng/mL, OPI (Opiates): 100 ng/mL, OXY (Oxycodone): 100 ng/mL, PCP (Phencyclidine): 25 ng/mL, PPX (Propoxyphene): 300 ng/mL, THC (Cannabinoids): 50 ng/mL, TCA (Trycyclic Antidepressants): 300 ng/mL Performed By: #### D RUGRPD ####[facility] Tlmhlmijsm[address] [place], [place] [address]Dr. viviana [facility] DRUG CUT HEADER DRUG CLASS TEST SYSTEM CUT-OFF CONCENTRATIONS ARE FOLLOWS: Normal [facility] Comment on above: Performed By: #### D RUGRPD ####[facility] Jzhydornka[address] [place], [place] [address]Dr. Abiel Clement mAMP Negative Normal NEGATIVE [facility] Comment on above: Performed By: #### D RUGRPD ####[facility] Isqhvvqokb45[address] [place], [place] [address]Dr. Abiel Clement MTD Negative Normal NEGATIVE [facility] Comment on above: Performed By: #### D RUGRPD ####[facility] Ayelszoajs94[address] [place], [place] [address]Dr. Abiel Clement OPI Positive Abnormal NEGATIVE [facility] Comment on above: Performed By: #### D RUGRPD ####[facility] Yqlfbxiriu11[address] [place], [place] [address]Dr. Abiel Clement OXY Negative Normal NEGATIVE [facility] Comment on above: Performed By: #### D RUGRPD ####[facility] Eeuchipnzz485[address] [place], [place] [address]Dr. Abiel Clement PCP Negative Normal NEGATIVE [facility] Comment on above: Performed By: #### D RUGRPD ####[facility] Llqujdezlr7[address] [place], [place] [address]Dr. Abiel Clement PPX Negative Normal NEGATIVE [facility] Comment on above: Performed By: #### D RUGRPD ####[facility] Mqplshmiqr2766 [place] [address]Dr. Abiel Urbano TCA Negative Normal NEGATIVE [facility] Comment on above: Performed By: #### D RUGRPD ####[facility] Jgmnqvvjav9276 [place] [address]Dr. Abiel Urbano THC Negative Normal NEGATIVE [facility] Comment on above: Performed By: #### D RUGRPD ####[facility] Xzipvigdjj9[address] [place], [place] [address]Dr. Abiel Clement ER URINE PROFILEon 2 Bilirubin Ql (U) Negative Normal NEGATIVE [facility] Comment on above: Performed By: #### CARLOS ACERO ####[facility] Savxxsewdl768[address] [place], [place] [address]Dr. Abiel Clement Clarity (U) CLEAR Normal CLEAR [facility] Comment on above: Performed By: #### CARLOS ACERO ####[facility] Yerlpotnpt6[address] [place], [place] [address]Dr. Abiel Clement Color (U) LT. YELLOW Normal YELLOW [facility] Comment on above: Performed By: #### CARLOS ACERO ####[facility] Rzicmdyzmi04[address] [place], [place] [address]Dr. Abiel Clement ERUAHD A micrscopic examination will be performed if indicated. Normal [facility] Comment on above: Performed By: #### CARLOS ACERO ####[facility] Sxvggtfpam759[address] [place], [place] [address]Dr. Abiel Clement Glucose Ql (U) Negative Normal NEGATIVE [facility] Comment on above: Performed By: #### CARLOS ACERO ####[facility] Phjitzkgtz59[address] [place], [place] [address]Dr. Abiel Clement Hemoglobin Ql (U) SMALL Abnormal NEGATIVE [facility] Comment on above: Performed By: #### CARLOS ACERO ####[facility] Ogxsabwezi56[address] [place] [address]Dr. Abiel Clement Ketones Ql (U) Negative Normal NEGATIVE [facility] Comment on above: Performed By: #### NESSA ACE ####[facility] Ausqwcnlpf8596 [place] [address]Dr. Abiel Clement LEUKOCYTES LARGE Abnormal NEGATIVE [facility] Comment on above: Performed By: #### NESSA ACE ####[facility] Ylfqahvwxr26[address] [place], [place] [address]Dr. Abiel Clement Nitrite Ql (U) Negative Normal NEGATIVE [facility] Comment on above: Performed By: #### NESSA ACE ####[facility] Avdvbwrarw04[address] [place], [place] [address]Dr. Abiel Clement pH (U) 5.0 [pH] Normal 5-9 [facility] Comment on above: Performed By: #### NESSA ACE ####[facility] Gqgdsvxbjd68[address] [place], [place] [address]Dr. Abiel Clement SPEC GRAVITY 1.020 Normal 1.005-<=1.02 5 [facility] Comment on above: Performed By: #### NESSA ACE ####[facility] Txufnwtvkd[address] [place], [place] [address]Dr. Abiel Clement UA PROTEIN Negative Normal NEGATIVE/ TRACE [facility] Comment on above: Performed By: #### NESSA ACE ####[facility] Lgdnigucfq[address] [place], [place] [address]DrKasia Clement UR MICRO IND INDICATED Normal [facility] Comment on above: Performed By: #### NESSA ACE ####[facility] Euqbodjkir5[address] [place], [place] [address]Dr. Abiel Clement Urobilinogen Qn (U) 0.2 {Keegan'U}/dL Normal 0.2 - 1. 0 [facility] Comment on above: Performed By: #### NESSA ACE ####[facility] Vzzflrbifi[address] [place], [place] [address]Dr. Abiel Clement ETHANOL (BLD ALC)on 08-04-20 22 ALC NOTE NOTE: 80 mg/dl is th e legal limit for a blood alcohol level Normal [facility] Comment on above: Performed By: #### E TH ####[facility] Rqlpcrkipr[address] [place], [place] [address]Dr. Abiel Clement Ethanol [Mass/Vol] mg/dL Normal [facility] Comment on above: Performed By: #### E TH ####[facility] Gdibderrwp18[address] [place], [place] [address]Dr. Abiel Clement INFLUENZA A AND B AGon 08-04 INFLUANEGH SEE BELOW Normal [facility] Comment on above: Result Comment: Nega tive for Flu A protein angiten. Infection due to Flu A cannot be ruled out. Flu A angiten in the sample may be below the detection limit of the test. Performed By: #### I NFLUAB ####[facility] Rdoowtistp[address] [place], [place] [address]Dr. Abiel Clement INFLUBNEGH SEE BELOW Normal [facility] Comment on above: Result Comment: Nega tive for Flu B protein antigen. Infection due to Flu B cannot be ruled out. Flu B antigen in the sample may be below the detection limit of the test. Performed By: #### I NFLUAB ####[facility] Bqnsixvjzd17[address] [place], [place] [address]Dr. Abiel Clement INFLUENZA A AG Negative Normal NEGATIVE SEE COMMENT [facility] Comment on above: Performed By: #### I NFLUAB ####[facility] Gaptrnszvf[address] [place], [place] [address]Dr. Abiel Urbano INFLUENZA B AG Negative Normal NEGATIVE SEE COMMENT [facility] Comment on above: Performed By: #### I NFLUAB ####[facility] Gdoixetudk[address] [place], [place] [address]Dr. Suyapaviviana Clement INTERNAL CONTROLS Within Normal Limits Normal Wi thin Normal Limits [facility] Comment on above: Performed By: #### I NFLUAB ####[facility] Jaypfvzgiy94[address] [place], [place] [address]Dr. Abiel Clement LACTATE/LACTIC ACIDon 2021 Lactate [Moles/Vol] 2.0 mmol/L Critically high 0.4-1.9 [facility] Comment on above: Performed By: #### L ACT ####[facility] [address]ux[address]wyzoz[address] [place] [address]Dr. Suyapaviviana Urbano LIPASEon 08-04-2022 Lipase [Catalytic activity/Vol] 28.0 U/L Critically low 73.0-393.0 [facility] Comment on above: Performed By: #### L IPA, CMP, HSTROPN, TSH ####[facility] Eyeceootlj7[address] [place] [address]Dr. Abiel Clement PH VENOUS BLOODon 08-04-2022 PCO2 VENOUS 30.0 mmHg Critically low 40.0-52.0 [facility] Comment on above: Performed By: #### P HVEN ####[facility] Tsjsafdyxv37[address] [place] [address]Dr. Abiel Clement pH VENOUS 7.509 Critically high 7.330-7.430 [facility] Comment on above: Performed By: #### P HVEN ####[facility] Jkkohzyumm7[address] [place] [address]Dr. Abiel Clement POINT OF CARE GLUCOSEon 07-08 Glucose [Mass/Vol] 230 mg/dL Critically high 74-106 [facility] Comment on above: Performed By: #### P OCGLUC ####[facility] Agmqcabtwv9972 [place] [address]Dr. Abiel Clement PROF 14(COMP METB)on 022 Albumin [Mass/Vol] 3.0 g/dL Critically low 3.4-5.0 [facility] Comment on above: Performed By: #### L IPA, CMP, HSTROPN, TSH ####[facility] Vsnpbkplzm2628 [place] [address]Dr. Abiel Clement Albumin/Globulin [Mass ratio] 0.7 {ratio} Normal [facility] Comment on above: Performed By: #### L IPA, CMP, HSTROPN, TSH ####[facility] Qnediilwos6101 [place] [address]Dr. Abiel Clement ALP [Catalytic activity/Vol] 196 U/L Critically high 46-116 [facility] Comment on above: Performed By: #### L IPA, CMP, HSTROPN, TSH ####[facility] Qyrhrvhcpt4786 [place] [address]Dr. Abiel Clement ALT [Catalytic activity/Vol] 21 U/L Normal 14-59 [facility] Comment on above: Performed By: #### L IPA, CMP, HSTROPN, TSH ####[facility] Fwadhsacex9637 [place] [address]Dr. Abiel Clement Anion gap [Moles/Vol] 12.1 mmol/L Normal [facility] Comment on above: Performed By: #### L IPA, CMP, HSTROPN, TSH ####[facility] Rpcdtutvvr[address] [place], [place] [address]Dr. Abiel Clement AST [Catalytic activity/Vol] 29 U/L Normal 15-37 [facility] Comment on above: Performed By: #### L IPA, CMP, HSTROPN, TSH ####[facility] Cnscghdqen83[address] [place] [address]Dr. Abiel Clement Bilirubin [Mass/Vol] 0.3 mg/dL Normal 0.2-1.0 [facility] Comment on above: Performed By: #### L IPA, CMP, HSTROPN, TSH ####[facility] Ekwsbvgmca[address] [place], [place] [address]Dr. Abiel Clement Calcium [Mass/Vol] 8.9 mg/dL Normal 8.5-10.1 [facility] Comment on above: Performed By: #### L IPA, CMP, HSTROPN, TSH ####[facility] Izekmxdgum[address] [place], [place] [address]Dr. Abiel Clement Chloride [Moles/Vol] 102 mmol/L Normal 98-107 [facility] Comment on above: Performed By: #### L IPA, CMP, HSTROPN, TSH ####[facility] Azrbrsloyc28[address] [place] [address]Dr. Abiel Clement CO2 [Moles/Vol] 27.1 mmol/L Normal 21.0-32.0 [facility] Comment on above: Performed By: #### L IPA, CMP, HSTROPN, TSH ####[facility] Bsdcikiynb1445 [place] [address]Dr. Abiel Clement Creatinine [Mass/Vol] 0.83 mg/dL Normal 0.55-1.02 [facility] Comment on above: Performed By: #### L IPA, CMP, HSTROPN, TSH ####[facility] Hmpsngrwcq4118 [place] [address]Dr. Abiel Clement EGFR-AF ALBANIAN >60 Normal >=60 [facility] Comment on above: Performed By: #### L IPA, CMP, HSTROPN, TSH ####[facility] Zfjvelokuu28[address] [place] [address]Dr. Abiel Clement EGFR-NON AF ALBANIAN >60 Normal >=60 [facility] Comment on above: Performed By: #### L IPA, CMP, HSTROPN, TSH ####[facility] Moqnnkbima9083 [place] [address]Dr. Abiel Clement Globulin (S) [Mass/Vol] 4.2 g/dL Normal [facility] Comment on above: Performed By: #### L IPA, CMP, HSTROPN, TSH ####[facility] Hmdtzyixov4043 [place] [address]Dr. Abiel Clement Glucose [Mass/Vol] 132 mg/dL Critically high 74-106 T [facility] Comment on above: Performed By: #### L IPA, CMP, HSTROPN, TSH ####[facility] Olwrwlrbml8633 [place] [address]Dr. Abiel Clement Potassium [Moles/Vol] 4.2 mmol/L Normal 3.5-5.1 [facility] Comment on above: Performed By: #### L IPA, CMP, HSTROPN, TSH ####[facility] Lmtgwuarmk0908 [place] [address]Dr. Abiel Clement Protein [Mass/Vol] 7.2 g/dL Normal 6.4-8.2 [facility] Comment on above: Performed By: #### L IPA, CMP, HSTROPN, TSH ####[facility] Jwerhangeq0044 [place] [address]Dr. Abiel Clement Sodium [Moles/Vol] 137 mmol/L Normal 136-145 [facility] Comment on above: Performed By: #### L IPA, CMP, HSTROPN, TSH ####[facility] Jymtuphrim[address] [place], [place] [address]Dr. Abiel Clement Urea nitrogen [Mass/Vol] 18.0 mg/dL Normal 7.0-18.0 [facility] Comment on above: Performed By: #### L IPA, CMP, HSTROPN, TSH ####[facility] Udmuteshsq[address] [place], [place] [address]Dr. Abiel Clement Urea nitrogen/Creatinine [Mass ratio] 21.7 mg/mg Normal [facility] Comment on above: Performed By: #### L IPA, CMP, HSTROPN, TSH ####[facility] Cvfubfbrny[address] [place], [place] [address]Dr. Abiel Clement PROTIMEon 08-04-2022 INR Coag (PPP) [Relative time] 1.05 {INR} Normal [facility] Comment on above: Performed By: #### P TT, PT ####[facility] Knircgqwjm7[address] [place], [place] [address]Dr. Abiel Clement INR GUIDELINES SEE BELOW Normal [facility] Comment on above: Result Comment: GELY RED INR: 2.0 - 3.0 CONDITIONS NOT LISTED BELOW 2.5 - 3.5 FOR PROSTHETIC HEART VALVE REPLACEMENT 2.5 - 3.5 RECURRENT THROMBOSIS Performed By: #### P TT, PT ####[facility] Qaeebebhyl[address] [place], [place] [address]Dr. Abiel Clement PT Coag (PPP) [Time] 11.3 s Normal 9.0-11.6 [facility] Comment on above: Performed By: #### P TT, PT ####[facility] Qutrrlkaze[address] [place], [place] [address]Dr. Abiel Clement PTTon 08-04-2022 aPTT Coag (Bld) [Time] 25.2 s Normal 22.3-36.2 [facility] Comment on above: Performed By: #### P TT, PT ####[facility] Brynmhnmuq[address] [place] [address]Dr. Abiel Clement TROPONIN, HIGH SENSITIVITYon 08-04-2022 HSTROP 5.0 pg/mL Normal 4.0-51.3 [facility] Comment on above: Result Comment: CUT- OFF POINTS HAVE BEEN ESTABLISHED BASED ON THE FOURTH UNIVERSAL DEFINITIONS OF MYOCARDIALINFARCTION. THE UPPER REFERENCE LIMIT (URL) OF TROPONIN, DEFINED THE 99TH PERCENTILE OFcTnI DISTRIBUTION IN A REFERENCE POPULATION, HAS BEEN CONFIRMED THE DECISION THRESHOLDFOR PR DIAGNOSIS. Performed By: #### L IPA, CMP, HSTROPN, TSH ####[facility] Oktheehlfg[address] [place] [address]Dr. Abiel Clement TSHon 08-04-2022 TSH 1.695 uIU/mL Normal 0.358-3.740 [facility] Comment on above: Performed By: #### L IPA, CMP, HSTROPN, TSH ####[facility] Zlqsusmwxc299[address] [place] [address]Dr. Abiel Clement URINE MICROSCOPIC ONLYon BACTERIA MODERATE Abnormal NONE SEEN [facility] Comment on above: Performed By: #### Krystle GERMAN UMICRO ####[facility] Azdawgullc27[address] [place] [address]Dr. Abiel Clement Bacteria identified Cx Nom (U) INDICATED Normal [facility] Comment on above: Performed By: #### Krystle GERMAN UMICRO ####[facility] Yxfmwsdali2989 [place] [address]Dr. Abiel Clement CAST NONE SEEN Normal NONE SEEN [facility] Comment on above: Performed By: #### Krystle GERMAN UMICRO ####[facility] Owjhehbqac[address] [place], [place] [address]Dr. Abiel Clement Crystals LM Nom (Urine sed) NONE SEEN Normal NONE SEEN [facility] Comment on above: Performed By: #### NESSA ACE ####[facility] Bkqsrmbhga7048 [place] [address]Dr. Abiel Clement Epithelial cells LM Ql (Urine sed) FEW Abnormal NONE SEEN /RARE [facility] Comment on above: Performed By: #### NESSA ACE ####[facility] Hokccgpspu72[address] [place], [place] [address]Dr. Abiel Clement MUCOUS NONE SEEN Normal NONE SEEN [facility] Comment on above: Performed By: #### CARLOS ACERO ####[facility] Rmkzmhzkii[address] [place], [place] [address]Dr. Abiel Clement RBC 2-5 Abnormal 0-2 [facility] Comment on above: Performed By: #### NESSA ACE ####[facility] Svvqmbrtxk[address] [place], [place] [address]Dr. Abiel Clement WBC 10-20 Abnormal NONE SEEN [facility] Comment on above: Performed By: #### NESSA ACE ####[facility] Uyddcpqmxp103[address] [place], [place] [address]Dr. Abiel Clement XR CHEST 1 Von 08-04-2022 XR CHEST 1 V Normal [facility] XR FOOT RT MIN 3 VIEWSon XR FOOT RT MIN 3 VIEWS Normal [facility] CBC AUTO DIFFon 06-03-2022 BASO # 0.0 103/ul Normal 0.0-0.1 [facility] Comment on above: Performed By: #### C BC ####[facility] Tfozqcgrar[address] [place], [place] [address]Dr. Abiel Clement Basophils/100 WBC (Bld) 0.5 % Normal 0.2-2.0 [facility] Comment on above: Performed By: #### C BC ####[facility] Roeblodnrh[address] [place], [place] [address]Dr. Abiel Clement EO # 0.3 103/ul Normal 0.0-0.7 [facility] Comment on above: Performed By: #### C BC ####[facility] Maiceymehb[address] [place], [place] [address]Dr. Abiel Clement Eosinophils/100 WBC (Bld) 3.5 % Normal 0.9-7.0 [facility] Comment on above: Performed By: #### C BC ####[facility] Evddvrbqub7[address] [place] [address]Dr. Abiel Clement Erythrocyte distribution width (RBC) [Ratio] 13.7 % Normal 11.0-15.0 [facility] Comment on above: Performed By: #### C BC ####[facility] Nezsnrplah9743 [place] [address]Dr. Abiel Clement Hematocrit (Bld) [Volume fraction] 34.2 % Critically low 36.0-48.0 [facility] Comment on above: Performed By: #### C BC ####[facility] Yvbicasvzu9542 [place] [address]Dr. Abiel Clement Hemoglobin (Bld) [Mass/Vol] 10.5 g/dL Critically low 12.0-16.0 [facility] Comment on above: Performed By: #### C BC ####[facility] Ilqpczmhxv24[address] [place] [address]Dr. Abiel Clement IG # 0.02 10e3/ul Normal 0.00-0.03 [facility] Comment on above: Performed By: #### C BC ####[facility] Kklhzagvkw39[address] [place] [address]Dr. Abiel Clement IG % 0.3 % Normal 0.0-0.5 [facility] Comment on above: Performed By: #### C BC ####[facility] Uhlzmlxknu15[address] [place] [address]Dr. Abiel Clement LYMPH # 1.4 103/ul Normal 1.2-3.8 [facility] Comment on above: Performed By: #### C BC ####[facility] Yfvbdxiwbs2409 [place] [address]Dr. Abiel Clement Lymphocytes/100 WBC (Bld) 18.5 % Critically low 20.5-60.0 [facility] Comment on above: Performed By: #### C BC ####[facility] [address]rmajoo[address] [place] [id number]. Abiel Clement MANUAL DIFF REQ NO Normal [facility] Comment on above: Performed By: #### C BC ####[facility] Pumnizrewo64[address] [place] [id number]. Abiel Clement MCH (RBC) [Entitic mass] 27.8 pg Normal 26.7-34.0 [facility] Comment on above: Performed By: #### C BC ####[facility] [address]rzwnmxwyu[address] [place] [address]Dr. Abiel Urbano MCHC (RBC) [Mass/Vol] 30.7 g/dL Normal 29.9-35.2 [facility] Comment on above: Performed By: #### C BC ####[facility] Mlxzblqoeq9[address] [place] [address]Dr. Abiel Urbano MCV (RBC) [Entitic vol] 90.5 fL Normal 81.0-99.0 [facility] Comment on above: Performed By: #### C BC ####[facility] [address]oly[address] [place] [address]Dr. Abiel Urbano MONO # 0.7 103/ul Normal 0.3-0.8 [facility] Comment on above: Performed By: #### C BC ####[facility] Cnxfrgamgd[address] [place] [address]Dr. Suyapaviviana Clement Monocytes/100 WBC (Bld) 8.5 % Normal 1.7-12.0 [facility] Comment on above: Performed By: #### C BC ####[facility] Powuhhfbwt[address] [place] [address]Dr. Abiel Urbano NEUT # 5.2 103/ul Normal 1.4-6.5 [facility] Comment on above: Performed By: #### C BC ####[facility] Smqvcrrzag[address] [place] [address]Dr. Abiel Clement Neutrophils/100 WBC (Bld) 68.7 % Normal 43.0-75.0 [facility] Comment on above: Performed By: #### C BC ####[facility] Rtzjaosgeq06[address] [place] [address]Dr. Abiel Clement Platelet mean volume (Bld) [Entitic vol] 11.0 fL Normal 9.5-13.5 [facility] Comment on above: Performed By: #### C BC ####[facility] Cvohcjoljs[address] [place] [id number]. Abiel Clement PLT 249 103/ul Normal 150-450 [facility] Comment on above: Performed By: #### C BC ####[facility] Cckmuntvme[address] [place] [address]Dr. Abiel Clement RBC 3.78 106/ul Critically low 4.20-5.40 [facility] Comment on above: Performed By: #### C BC ####[facility] Aoduwomips[address] [place] [address]Dr. Abiel Clement WBC 7.6 103/ul Normal 4.0-11.0 [facility] Comment on above: Performed By: #### C BC ####[facility] Rojeoqhmdk[address] [place] [address]Dr. Abiel Clement POINT OF CARE GLUCOSEon 05-07 Glucose [Mass/Vol] 84 mg/dL Normal 74-106 [facility] Comment on above: Performed By: #### P OCGLUC ####[facility] Yckizuhksz[address] [place] [address]Dr. Abiel Clement Glucose [Mass/Vol] 49 mg/dL Critically low 74-106 [facility] Comment on above: Result Comment: Will Repeat Test Performed By: #### P OCGLUC ####[facility] Okrqeuxzhg[address] [place] [address]Dr. Abiel Clement Glucose [Mass/Vol] 182 mg/dL Critically high 74-106 [facility] Comment on above: Performed By: #### P OCGLUC ####[facility] Hvtslzoqov[address] [place] [address]Dr. Abiel Clement PROF CHEM 8 (BAS METB)on Anion gap [Moles/Vol] 8.5 mmol/L Normal [facility] Comment on above: Performed By: #### B MP ####[facility] Aaefjiasjb[address] [place] [address]Dr. Abiel Clement Calcium [Mass/Vol] 9.2 mg/dL Normal 8.5-10.1 [facility] Comment on above: Performed By: #### B MP ####[facility] Vcyusfbfup30[address] [place] [address]Dr. Abiel Clement Chloride [Moles/Vol] 99 mmol/L Normal 98-107 [facility] Comment on above: Performed By: #### B MP ####[facility] Slovxvxtfn92[address] [place] [address]Dr. Abiel Clement CO2 [Moles/Vol] 29.5 mmol/L Normal 21.0-32.0 [facility] Comment on above: Performed By: #### B MP ####[facility] Helwvkzrya[address] [place], [place] [address]Dr. Abiel Clement Creatinine [Mass/Vol] 0.97 mg/dL Normal 0.55-1.02 [facility] Comment on above: Performed By: #### B MP ####[facility] Uydvmyakpa[address] [place], [place] [address]Dr. Abiel Clement EGFR-AF ALBANIAN >60 Normal >=60 [facility] Comment on above: Performed By: #### B MP ####[facility] Ioeaucwage[address] [place], [place] [address]Dr. Abiel Clement EGFR-NON AF ALBANIAN 58 mL/min/1.73m2 Critically low >=60 [facility] Comment on above: Performed By: #### B MP ####[facility] Jrraxpqhly40[address] [place], [place] [address]Dr. Abiel Clement Glucose [Mass/Vol] 193 mg/dL Critically high 74-106 [facility] Comment on above: Performed By: #### B MP ####[facility] Bdhgupvnml60[address] [place], [place] [address]Dr. Abiel Clement Potassium [Moles/Vol] 4.0 mmol/L Normal 3.5-5.1 [facility] Comment on above: Performed By: #### B MP ####[facility] Qvsooqsaib3516 [place] [id number]. Abiel Clement Sodium [Moles/Vol] 133 mmol/L Critically low 136-145 [facility] Comment on above: Performed By: #### B MP ####[facility] Wbkmpbqiij4341 [place] [id number]. Abiel Clement Urea nitrogen [Mass/Vol] 20.0 mg/dL Critically high 7.0-18.0 [facility] Comment on above: Performed By: #### B MP ####[facility] Iqmusegcgj9358 [place] [id number]. Abiel Clement Urea nitrogen/Creatinine [Mass ratio] 20.6 mg/mg Normal [facility] Comment on above: Performed By: #### B MP ####[facility] Bgnmngsjnw68[address] [place] [address]Dr. Abiel Clement POINT OF CARE GLUCOSEon 05-07 Glucose [Mass/Vol] 62 mg/dL Critically low 74-106 [facility] Comment on above: Performed By: #### P OCGLUC ####[facility] Srpfqhudzb45[address] [place] [address]Dr. Suyapalan Clement Glucose [Mass/Vol] 75 mg/dL Normal 74-106 [facility] Comment on above: Performed By: #### P OCGLUC ####[facility] Iamqdzqhqd5[address] [place] [address]Dr. Suyapalan Clement Glucose [Mass/Vol] 83 mg/dL Normal 74-106 [facility] Comment on above: Performed By: #### P OCGLUC ####[facility] Eellxstjqr9[address] [place] [address]Dr. Yilan Clement Glucose [Mass/Vol] 107 mg/dL Critically high 74-106 [facility] [place] [facility] Comment on above: Performed By: #### P OCGLUC ####[facility] Tagdzndsfy[address] [place], [place] [address]Dr. Yilan Clement Glucose [Mass/Vol] 140 mg/dL Critically high 74-106 [facility] Comment on above: Performed By: #### P OCGLUC ####[facility] Kwjhxsjftd3573 [place] [id number]. Abiel Clement CBC AUTO DIFFon 06-01-2022 BASO # 0.0 103/ul Normal 0.0-0.1 [facility] Comment on above: Performed By: #### C BC ####[facility] Urgzdayblf29[address] [place] [id number]. Suyapaviviana Clement Basophils/100 WBC (Bld) 0.3 % Normal 0.2-2.0 [facility] Comment on above: Performed By: #### C BC ####[facility] Jjkqxmyetm6376 [place] [address]Dr. Suyapaviviana Clement EO # 0.2 103/ul Normal 0.0-0.7 [facility] Comment on above: Performed By: #### C BC ####[facility] Xclmnbfcrq[address] [place], [place] [address]Dr. Suyapaviviana Clement Eosinophils/100 WBC (Bld) 1.9 % Normal 0.9-7.0 [facility] Comment on above: Performed By: #### C BC ####[facility] Vtnsytfctw[address] [place], [place] [address]Dr. Abiel Clement Erythrocyte distribution width (RBC) [Ratio] 13.8 % Normal 11.0-15.0 [facility] Comment on above: Performed By: #### C BC ####[facility] Mwmpgvisiz313[address] [place], [place] [address]Dr. Abiel Clement Hematocrit (Bld) [Volume fraction] 37.7 % Normal 36.0-48.0 [facility] Comment on above: Performed By: #### C BC ####[facility] Tkfwbglrum[address] [place], [place] [address]Dr. Abiel Clement Hemoglobin (Bld) [Mass/Vol] 11.7 g/dL Critically low 12.0-16.0 [facility] Comment on above: Performed By: #### C BC ####[facility] Rjsnfgbyyn67[address] [place], [place] [address]Dr. Abiel Clement IG # 0.03 10e3/ul Normal 0.00-0.03 [facility] Comment on above: Performed By: #### C BC ####[facility] Fpslytvtyf74[address] [place] [id number]. Abiel Clement IG % 0.3 % Normal 0.0-0.5 [facility] Comment on above: Performed By: #### C BC ####[facility] Fwhlznerpo28[address] [place] [id number]. Abiel Clement LYMPH # 1.1 103/ul Critically low 1.2-3.8 [facility] Comment on above: Performed By: #### C BC ####[facility] Iasfkokpix2397 [place] [id number]. Abiel Clement Lymphocytes/100 WBC (Bld) 12.0 % Critically low 20.5-60.0 [facility] Comment on above: Performed By: #### C BC ####[facility] Lemyucfqki[address] [place] [address]Dr. Abiel Clement MANUAL DIFF REQ NO Normal [facility] Comment on above: Performed By: #### C BC ####[facility] Nczxepgsfa8601 [place] [id number]. Abiel Clement MCH (RBC) [Entitic mass] 27.9 pg Normal 26.7-34.0 [facility] Comment on above: Performed By: #### C BC ####[facility] Cjchekyovc1354 [place] [id number]. Abiel Clement MCHC (RBC) [Mass/Vol] 31.0 g/dL Normal 29.9-35.2 [facility] Comment on above: Performed By: #### C BC ####[facility] Lyeonjghjy7783 [place] [id number] Clement MCV (RBC) [Entitic vol] 89.8 fL Normal 81.0-99.0 [facility] Comment on above: Performed By: #### C BC ####[facility] Yqthvhgelh4[address] [place] [address]DrKasia Clement MONO # 0.7 103/ul Normal 0.3-0.8 [facility] Comment on above: Performed By: #### C BC ####[facility] Qmqetzkela[address] [place] [id number]. Abiel Clement Monocytes/100 WBC (Bld) 8.0 % Normal 1.7-12.0 [facility] Comment on above: Performed By: #### C BC ####[facility] Pjsggugawf36[address] [place] [id number]. Abiel Clement NEUT # 6.9 103/ul Critically high 1.4-6.5 [facility] Comment on above: Performed By: #### C BC ####[facility] Awaekeohjp2174 [place] [id number]. Abiel Clement Neutrophils/100 WBC (Bld) 77.5 % Critically high 43.0-75.0 [facility] Comment on above: Performed By: #### C BC ####[facility] Vfhpaftbrb6973 [place] [phone]. Abiel Clement Platelet mean volume (Bld) [Entitic vol] 11.1 fL Normal 9.5-13.5 [facility] Comment on above: Performed By: #### C BC ####[facility] Uqyqvoqkoj40[address] [place] [id number]. Abiel Clement PLT 276 103/ul Normal 150-450 [facility] Comment on above: Performed By: #### C BC ####[facility] Tvahjkyfvm0941 [place] [id number]. Abiel Clement RBC 4.20 106/ul Normal 4.20-5.40 [facility] Comment on above: Performed By: #### C BC ####[facility] Bgzmseounb6836 [place] [id number]. Abiel Clement WBC 8.9 103/ul Normal 4.0-11.0 [facility] Comment on above: Performed By: #### C BC ####[facility] Eovylmngqk0084 [place] [id number]. Abiel Clement POINT OF CARE GLUCOSEon 09-2 Glucose [Mass/Vol] 121 mg/dL Critically high 74-106 [facility] Comment on above: Performed By: #### P OCGLUC ####[facility] Fuaiqnazzu49[address] [place] [address]Dr. Abiel Clement Glucose [Mass/Vol] 303 mg/dL Critically high 74-106 [facility] Comment on above: Performed By: #### P OCGLUC ####[facility] Bfdzfseiki380[address] [place] [address]Dr. Abiel Clement PROF 14(COMP METB)on 022 Albumin [Mass/Vol] 2.8 g/dL Critically low 3.4-5.0 [facility] Comment on above: Performed By: #### C MP ####[facility] Bbqjvrdaoa8[address] [place] [address]Dr. Abiel Clement Albumin/Globulin [Mass ratio] 0.7 {ratio} Normal [facility] Comment on above: Performed By: #### C MP ####[facility] Xtwrewcbbp[address] [place], [place] [address]Dr. Abiel Clement ALP [Catalytic activity/Vol] 174 U/L Critically high 46-116 [facility] Comment on above: Performed By: #### C MP ####[facility] Wgxiiviods[address] [place], [place] [address]Dr. Abiel Clement ALT [Catalytic activity/Vol] 14 U/L Normal 14-59 [facility] Comment on above: Performed By: #### C MP ####[facility] Fbjmzsrjwj9972 [place] [address]Dr. Abiel Clement Anion gap [Moles/Vol] 14.2 mmol/L Normal [facility] Comment on above: Performed By: #### C MP ####[facility] Eunzorfhso8052 [place] [address]Dr. Abiel Clement AST [Catalytic activity/Vol] 13 U/L Critically low 15-37 [facility] Comment on above: Performed By: #### C MP ####[facility] Lgatzdqzuv384[address] [place], [place] [address]Dr. Abiel Clement Bilirubin [Mass/Vol] 0.1 mg/dL Critically low 0.2-1.0 [facility] Comment on above: Performed By: #### C MP ####[facility] Wtbrforaoc3273 [place] [id number]. Abiel Clement Calcium [Mass/Vol] 8.9 mg/dL Normal 8.5-10.1 [facility] Comment on above: Performed By: #### C MP ####[facility] Zivqnnrxez5392 [place] [id number]. Abiel Clement Chloride [Moles/Vol] 99 mmol/L Normal 98-107 [facility] Comment on above: Performed By: #### C MP ####[facility] Dhxcufqsci4593 [place] [id number]. Abiel Clement CO2 [Moles/Vol] 27.1 mmol/L Normal 21.0-32.0 [facility] Comment on above: Performed By: #### C MP ####[facility] Yxuhsajuzk69[address] [place], [place] [address]Dr. Abiel Urbano Creatinine [Mass/Vol] 1.19 mg/dL Critically high 0.55-1.02 [facility] Comment on above: Performed By: #### C MP ####[facility] [address]wrxzwqlub[address] [place], [place] [address]Dr. Abiel Urbano EGFR-AF ALBANIAN 56 mL/min/1.73m2 Critically low >=60 [facility] Comment on above: Performed By: #### C MP ####[facility] Ehmnzawtnu2[address] [place] [address]Dr. Suyapaviviana Urbano EGFR-NON AF ALBANIAN 46 mL/min/1.73m2 Critically low >=60 [facility] Comment on above: Performed By: #### C MP ####[facility] Ton[address] [place], [place] [address]Dr. Abiel Clement Globulin (S) [Mass/Vol] 4.0 g/dL Normal [facility] Comment on above: Performed By: #### C MP ####[facility] Auzfgduqgv8424 [place] [id number]. Abiel Clement Glucose [Mass/Vol] 148 mg/dL Critically high 74-106 [facility] Comment on above: Performed By: #### C MP ####[facility] Qgndkffeul8178 [place] [address]Dr. Abiel Clement Potassium [Moles/Vol] 4.3 mmol/L Normal 3.5-5.1 [facility] Comment on above: Performed By: #### C MP ####[facility] Heqfamyhxz0576 [place] [address]Dr. Abiel Clement Protein [Mass/Vol] 6.8 g/dL Normal 6.4-8.2 [facility] Comment on above: Performed By: #### C MP ####[facility] Nmpdndmboz89[address] [place], [place] [address]Dr. Abiel Clement Sodium [Moles/Vol] 136 mmol/L Normal 136-145 [facility] Comment on above: Performed By: #### C MP ####[facility] Oyjnpnufhb99[address] [place], [place] [address]Dr. Abiel Clement Urea nitrogen [Mass/Vol] 25.0 mg/dL Critically high 7.0-18.0 [facility] Comment on above: Performed By: #### C MP ####[facility] Gldsvttxwf[address] [place], [place] [address]Dr. Abiel Clement Urea nitrogen/Creatinine [Mass ratio] 21.0 mg/mg Normal [facility] Comment on above: Performed By: #### C MP ####[facility] Xjvlohqqyg[address] [place], [place] [address]Dr. Abiel Clement XR CHEST 1 Von 06-01-2022 XR CHEST 1 V Normal [facility] POINT OF CARE GLUCOSEon 05-07 Glucose [Mass/Vol] 195 mg/dL Critically high 74-106 [facility] Comment on above: Performed By: #### P OCGLUC ####[facility] Aztzywtnaq[address] [place], [place] [address]Dr. Abiel Clement Glucose [Mass/Vol] 236 mg/dL Critically high 74-106 [facility] Comment on above: Performed By: #### P OCGLUC ####[facility] Ttpeuhfagr[address] [place] [id number]. Abiel Clement Glucose [Mass/Vol] 169 mg/dL Critically high 74-106 [facility] Comment on above: Performed By: #### P OCGLUC ####[facility] Kmtifxpeih7458 [place] [id number]. Abiel Clement Glucose [Mass/Vol] 162 mg/dL Critically high 74-106 [facility] Comment on above: Performed By: #### P OCGLUC ####[facility] Xojrtcpvle0091 [place] [id number]. Abiel Clement XR FOOT RT MIN 3 VIEWSon XR FOOT RT MIN 3 VIEWS Normal [facility] Covid-19 PCR (CVDTB)on 05-07 SARS-CoV-2 (COVID-19) RNA CLARIBEL+probe Ql (Unsp spec) Not detected Normal NOT DETECTED [facility] Comment on above: Result Comment: This test is not yet approved or cleared by the [place] FDA. When there are no FDA-approved or cleared tests available, and other criteria are met, FDA can make tests available under an emergency access mechanism called an Emergency Use Authorization (EUA). The EUA for this test is supported by the [place] of Health and Human Service's (HHS's) declaration [...] with SARS-CoV-2. Performed By: #### C VDTBH ####[facility] Mpazvyfibf[address] [place] [address]Dr. Abiel Clement PROF CHEM 8 (BAS METB)on Anion gap [Moles/Vol] 11.8 mmol/L Normal [facility] Comment on above: Performed By: #### B MP ####[facility] Mwuxqenmzg1102 [place] [address]Dr. Abiel Clement Calcium [Mass/Vol] 9.1 mg/dL Normal 8.5-10.1 [facility] Comment on above: Performed By: #### B MP ####[facility] Vazatzvlkh4952 [place] [address]Dr. Abiel Clement Chloride [Moles/Vol] 104 mmol/L Normal 98-107 [facility] Comment on above: Performed By: #### B MP ####[facility] Gtolxjjcgn2823 [place] [address]Dr. Abiel Clement CO2 [Moles/Vol] 27.6 mmol/L Normal 21.0-32.0 [facility] Comment on above: Performed By: #### B MP ####[facility] Cckzzcqhik[address] [place], [place] [address]Dr. Abiel Clement Creatinine [Mass/Vol] 0.89 mg/dL Normal 0.55-1.02 [facility] Comment on above: Performed By: #### B MP ####[facility] Sifynpyzrw[address] [place], [place] [address]Dr. Abiel Clement EGFR-AF ALBANIAN >60 Normal >=60 [facility] Comment on above: Performed By: #### B MP ####[facility] Hbsvintsbt[address] [place], [place] [address]Dr. Abiel Clement EGFR-NON AF ALBANIAN >60 Normal >=60 [facility] Comment on above: Performed By: #### B MP ####[facility] Sxteilsbat80[address] [place], [place] [address]Dr. Abiel Clement Glucose [Mass/Vol] 83 mg/dL Normal 74-106 [facility] Comment on above: Performed By: #### B MP ####[facility] Atkhfnhysr[address] [place], [place] [address]Dr. Abiel Clement Potassium [Moles/Vol] 4.4 mmol/L Normal 3.5-5.1 [facility] Comment on above: Performed By: #### B MP ####[facility] Qaqfpcvkwv2538 [place] [id number]. Abiel Clement Sodium [Moles/Vol] 139 mmol/L Normal 136-145 [facility] Comment on above: Performed By: #### B MP ####[facility] Jeymckfqub6958 [place], [place] [address]Et. Abiel Clement Urea nitrogen [Mass/Vol] 18.0 mg/dL Normal 7.0-18.0 [facility] Comment on above: Performed By: #### B MP ####[facility] Pbcgecwnwd6247 [place] [id number]. Abiel Clement Urea nitrogen/Creatinine [Mass ratio] 20.2 mg/mg Normal [facility] Comment on above: Performed By: #### B MP ####[facility] Ixpkzwuqps47[address] [place] [id number]. Abiel Clement CT CSPINE WO CONon CT CSPINE WO CON Normal [facility] CT HEAD WO CONon 05-19-2022 CT HEAD WO CON Normal [facility] XR HIP RT 2 3V W PELVISon XR HIP RT 2 3V W PELVIS Normal [facility] CT FOOT RT WO CONon 05-13-20 CT FOOT RT WO CON Normal [facility] BLOOD CULTURE ID PANELon A. baumannii Not detected Normal NOT DETECTED [facility] Comment on above: Performed By: #### B CID2 ####[facility] Umvaqzewbw14[address] [place] [id number]. Abiel Clement Bacteriodes fragilis Not detected Normal NOT DETECTED [facility] Comment on above: Performed By: #### B CID2 ####[facility] Bwkgtjyhok8504 [place] [id number]. Abiel Clement BCID CONTROLS PASSED Normal [facility] Comment on above: Performed By: #### B CID2 ####[facility] Igmjmtmofs5674 [place] [id number]. Abiel Clement BCIDBTHD BLOOD CULTURE BOTTLE INFORMATION Normal [facility] Comment on above: Performed By: #### B CID2 ####[facility] Ofosgxdjty3757 [place] [address]Dr. Yiviviana Clement BCIDHD1 ANTIMICROBIAL RESISTANCE GENES Normal [facility] Comment on above: Performed By: #### B CID2 ####[facility] Asrldvcsrv90[address] [place] [address]Dr. Yiviviana Clement BCIDHD2 SEE BELOW Normal [facility] Comment on above: Result Comment: Note : Antimicrobial resitance can occur via multiple mechanisms. A Not Detected result for the [employer] antomicrobial resistance gene assays does not indicate antimicrobial susceptibility. Subculturing is required for species identification and susceptibility testing of isolates. Performed By: #### B CID2 ####[facility] Tnqgbeujbs[address] [place], [place] [address]Dr. Abiel Clement BCIDHD3 Positive Normal [facility] Comment on above: Performed By: #### B CID2 ####[facility] Lpwtmchtaq65[address] [place], [place] [address]Dr. Yiviviana Clement BCIDHD4 Negative Normal [facility] Comment on above: Performed By: #### B CID2 ####[facility] K[address]pzjwcqc[address] [place], [place] [address]Dr. Yiviviana Clement BCIDHD5 YEAST Normal [facility] Comment on above: Performed By: #### B CID2 ####[facility] Lhjjkmhoeb[address] [place], [place] [address]Dr. Yiviviana Clement Bottle Set: Set 1 Normal [facility] Comment on above: Performed By: #### B CID2 ####[facility] Oehtybnbdq[address] [place], [place] [address]Dr. Yilan Clement Bottle: Aerobic Normal [facility] Comment on above: Performed By: #### B CID2 ####[facility] Dfzvxapxmr[address] [place], [place] [address]Dr. Yiviviana Clement C. neoformans/gattii Not detected Normal NOT DETECTED [facility] Comment on above: Performed By: #### B CID2 ####[facility] Fqujbkpnum[address] [place], [place] [address]Dr. Yiviviana Clement Sakshi albicans Not detected Normal NOT DETECTED [facility] Comment on above: Performed By: #### B CID2 ####[facility] Qgtdrmxbnm8749 [place] [address]Dr. Yiviviana Clement Sakshi auris Not detected Normal NOT DETECTED [facility] Comment on above: Performed By: #### B CID2 ####[facility] Uvqmeskkcl[address] [place] [address]Dr. Yilan Clement Sakshi glabrata Not detected Normal NOT DETECTED [facility] Comment on above: Performed By: #### B CID2 ####[facility] Bkjgpeqwpv8[address] [place] [address]Dr. Yiviviana Clement Sakshi Krusei Not detected Normal NOT DETECTED [facility] Comment on above: Performed By: #### B CID2 ####[facility] Qqtmkcwkaa[address] [place], [place] [address]Dr. Abiel Clement Sakshi Parapsilosis Not detected Normal NOT DETECTED [facility] Comment on above: Performed By: #### B CID2 ####[facility] Wibzxfwrdi[address] [place], [place] [address]Dr. Yiviviana Clement Sakshi Tropicalis Not detected Normal NOT DETECTED [facility] Comment on above: Performed By: #### B CID2 ####[facility] Wdivcygrll[address] [place], [place] [address]Dr. Abiel Clement CTX-M Resistant Gene Not Applicable Normal NOT DETECTE D [facility] Comment on above: Performed By: #### B CID2 ####[facility] Stmfwgfhsf[address] [place], [place] [address]Dr. Yiviviana Clement E. Cloacae complex Not detected Normal NOT DETECTED [facility] Comment on above: Performed By: #### B CID2 ####[facility] Rymhewtzvl[address] [place], [place] [address]Dr. Yilan Clement E. faecalis Not detected Normal NOT DETECTED [facility] Comment on above: Performed By: #### B CID2 ####[facility] Jthzdrnacw[address] [place], [place] [address]Dr. Yiviviana Clement E. faecium Not detected Normal NOT DETECTED [facility] Comment on above: Performed By: #### B CID2 ####[facility] Ghwfifhgoz913[address] [place], [place] [address]Dr. Abiel Clement Enterobacteriaceae Not detected Normal NOT DETECTED [facility] Comment on above: Performed By: #### B CID2 ####[facility] Dssiokgrdk317[address] [place], [place] [address]Dr. Abiel Clement Escherichia coli Not detected Normal NOT DETECTED [facility] Comment on above: Performed By: #### B CID2 ####[facility] Kwcemcfvml650[address] [place], [place] [address]Dr. Abiel Clement H. influenzae Not detected Normal NOT DETECTED [facility] Comment on above: Performed By: #### B CID2 ####[facility] Glaikemgki106[address] [place], [place] [address]Dr. Abiel Clement IMP Resistant Gene Not Applicable Normal NOT DETECTED [facility] Comment on above: Performed By: #### B CID2 ####[facility] Sfvjvzvqvr[address] [place], [place] [address]Dr. Abiel Clement K. oxytoca Not detected Normal NOT DETECTED [facility] Comment on above: Performed By: #### B CID2 ####[facility] Pnkpqiyjse410[address] [place], [place] [address]Dr. Abiel Clement K. pneumoniae Not detected Normal NOT DETECTED [facility] Comment on above: Performed By: #### B CID2 ####[facility] Nbhsrvevuf78[address] [place], [place] [address]Dr. Abiel Clement Klebsiella aerogenes Not detected Normal NOT DETECTED [facility] Comment on above: Performed By: #### B CID2 ####[facility] Fojkbipucb595[address] [place], [place] [address]Dr. Abiel Clement KPC Resistant Gene Not detected Normal NOT DETECTED [facility] Comment on above: Performed By: #### B CID2 ####[facility] Lvsfgybwus2210[address] [place], [place] [address]Dr. Abiel Clement List. monocytogenes Not detected Normal NOT DETECTED [facility] Comment on above: Performed By: #### B CID2 ####[facility] Oitgmarrkp6866[address] [place], [place] [address]Dr. Abiel Clement Mcr-1 Resistant Gene Not Applicable Normal NOT DETECTE D [facility] Comment on above: Performed By: #### B CID2 ####[facility] Kqqtqiuhwe13[address] [place], [place] [address]Dr. Abiel Urbano mecA/C Not Applicable Normal NOT DETECTED [facility] Comment on above: Performed By: #### B CID2 ####[facility] Gbfiwzpwks8845[address] [place], [place] [address]Dr. Abiel Clement mecA/C MREJ Not Applicable Normal NOT DETECTED [facility] Comment on above: Performed By: #### B CID2 ####[facility] Wwilzpxfpr3084[address] [place], [place] [address]Dr. Abiel Clement N. meningitidis Not detected Normal NOT DETECTED [facility] Comment on above: Performed By: #### B CID2 ####[facility] Rboiedftje068[address] [place], [place] [address]Dr. Abiel Clement NDM Resistant Gene Not Applicable Normal NOT DETECTED [facility] Comment on above: Performed By: #### B CID2 ####[facility] Ucnajpsqfv5915[address] [place], [place] [address]Dr. Abiel Clement Oxa-48-like Not Applicable Normal NOT DETECTED [facility] Comment on above: Performed By: #### B CID2 ####[facility] Ukfbdkgzoe3547[address] [place], [place] [address]Dr. Abiel Clement Proteus Not detected Normal NOT DETECTED [facility] Comment on above: Performed By: #### B CID2 ####[facility] Psxymliskp044[address] [place], [place] [address]Dr. Abiel Clement Pseud. aeruginosa Not detected Normal NOT DETECTED [facility] Comment on above: Performed By: #### B CID2 ####[facility] Mugkoxrbqr9580[address] [place], [place] [address]Dr. Abiel Clement S. maltophilia Not detected Normal NOT DETECTED [facility] Comment on above: Performed By: #### B CID2 ####[facility] Yutiyeqyvb[address] [place], [place] [address]Dr. Abiel Clement Salmonella Not detected Normal NOT DETECTED [facility] Comment on above: Performed By: #### B CID2 ####[facility] [address] [place] [address]Dr. Abiel Clement Seratia marcescens Not detected Normal NOT DETECTED [facility] Comment on above: Performed By: #### B CID2 ####[facility] Mrznyfqkvk[address] [place], [place] [id number]. Abiel Clement Site: R A/c Normal [facility] Comment on above: Performed By: #### B CID2 ####[facility] Haqujncxkn4612[address] [place], [place] [address]Dr. Abiel Clement Staph. aureus Not detected Normal NOT DETECTED [facility] Comment on above: Performed By: #### B CID2 ####[facility] Jxgmwmxhtu046[address] [place], [place] [address]Dr. Abiel Clement Staph. epidermidis Not detected Normal NOT DETECTED [facility] Comment on above: Performed By: #### B CID2 ####[facility] Ytacjwbzbf367[address] [place], [place] [address]Dr. Abiel Clement Staph. lugdunensis Not detected Normal NOT DETECTED [facility] Comment on above: Performed By: #### B CID2 ####[facility] Lbtgtuiufv169[address] [place], [place] [address]Dr. Abiel Clement Staphylococcus Not detected Normal NOT DETECTED [facility] Comment on above: Performed By: #### B CID2 ####[facility] Opkbruerqc6435[address] [place], [place] [address]Dr. Abiel Clement Strep. agalactiae Not detected Normal NOT DETECTED [facility] Comment on above: Performed By: #### B CID2 ####[facility] Mvwbkxkxyz4869[address] [place], [place] [address]Dr. Suyapaviviana Clement Strep. pneumoniae Not detected Normal NOT DETECTED [facility] Comment on above: Performed By: #### B CID2 ####[facility] Bautuatvym[address] [place], [place] [address]Dr. Abiel Clement Strep. pyogenes Not detected Normal NOT DETECTED [facility] Comment on above: Performed By: #### B CID2 ####[facility] S[address]ql[address]hu350[address] [place] [address]Dr. Abiel Clement Streptococcus Detected Abnormal NOT DETECTED [facility] Comment on above: Performed By: #### B CID2 ####[facility] Mctkqgwbka6465 [place] [address]Dr. Abiel Clement Jarvis/B Resist. Gene Not detected Normal NOT DETECTED [facility] Comment on above: Performed By: #### B CID2 ####[facility] Pqzckefinq6059[address] [place], [place] [address]Dr. Abiel Clement VIM Resistant Gene Not Applicable Normal NOT DETECTED [facility] Comment on above: Performed By: #### B CID2 ####[facility] Owddaopsvc136[address] [place], [place] [address]Dr. Abiel Clement BNPon 04-30-2022 Natriuretic peptide B (Bld) [Mass/Vol] 127.0 pg/mL Normal <=900.0 [facility] Comment on above: Performed By: #### B PAPER MAKING MACHINE OPERATOR, CMP, HSTROPN ####[facility] Pokyvlihdh634[address] [place], [place] [address]Dr. Abiel Clement CBC AUTO DIFFon 04-30-2022 BASO # 0.1 103/ul Normal 0.0-0.1 [facility] Comment on above: Performed By: #### C BC ####[facility] Tljpnjtxyz517[address] [place], [place] [address]Dr. Abiel Clement Basophils/100 WBC (Bld) 0.6 % Normal 0.2-2.0 [facility] Comment on above: Performed By: #### C BC ####[facility] Anvzeebcaf6069[address] [place], [place] [address]Dr. Abiel Clement EO # 0.3 103/ul Normal 0.0-0.7 [facility] Comment on above: Performed By: #### C BC ####[facility] Iphhoreyin8214[address] [place], [place] [address]Dr. Abiel Clement Eosinophils/100 WBC (Bld) 2.8 % Normal 0.9-7.0 [facility] Comment on above: Performed By: #### C BC ####[facility] Frxzhkpmkd0464 [place] [address]Dr. Abiel Clement Erythrocyte distribution width (RBC) [Ratio] 12.9 % Normal 11.0-15.0 [facility] Comment on above: Performed By: #### C BC ####[facility] Zigpboqmuh2155 [place] [address]Dr. Abiel Clement Hematocrit (Bld) [Volume fraction] 38.7 % Normal 36.0-48.0 [facility] Comment on above: Performed By: #### C BC ####[facility] Zxfawokcxv724[address] [place], [place] [address]Dr. Abiel Clement Hemoglobin (Bld) [Mass/Vol] 12.5 g/dL Normal 12.0-16.0 [facility] Comment on above: Performed By: #### C BC ####[facility] Tkxdazzvfo3317[address] [place], [place] [address]Dr. Abiel Clement IG # 0.03 10e3/ul Normal 0.00-0.03 [facility] Comment on above: Performed By: #### C BC ####[facility] Kjvttqqnzz46[address] [place], [place] [address]Dr. Abiel Clement IG % 0.3 % Normal 0.0-0.5 [facility] Comment on above: Performed By: #### C BC ####[facility] Mhjrrtlxcf[address] [place], [place] [address]Dr. Abiel Clement LYMPH # 1.6 103/ul Normal 1.2-3.8 [facility] Comment on above: Performed By: #### C BC ####[facility] Wuxrfucsxm639[address] [place], [place] [address]Dr. Abiel Clement Lymphocytes/100 WBC (Bld) 15.0 % Critically low 20.5-60.0 [facility] Comment on above: Performed By: #### C BC ####[facility] Tjplqmzrnq[address] [place], [place] [address]Dr. Abiel Clement MANUAL DIFF REQ NO Normal [facility] Comment on above: Performed By: #### C BC ####[facility] [address]xb[address] [place] [id number]. Abiel Clement MCH (RBC) [Entitic mass] 28.9 pg Normal 26.7-34.0 [facility] Comment on above: Performed By: #### C BC ####[facility] Wwvjlxoyqa1192 [place] [id number]. Abiel Clement MCHC (RBC) [Mass/Vol] 32.3 g/dL Normal 29.9-35.2 [facility] Comment on above: Performed By: #### C BC ####[facility] Nfvzojqnum5803 [place] [address]Dr. Abiel Urbano MCV (RBC) [Entitic vol] 89.6 fL Normal 81.0-99.0 [facility] Comment on above: Performed By: #### C BC ####[facility] Vpesajutzt25[address] [place], [place] [address]Dr. Abiel Urbano MONO # 0.8 103/ul Normal 0.3-0.8 [facility] Comment on above: Performed By: #### C BC ####[facility] W[address]rxipzq2134 [place] [address]Dr. Suyapaviviana Clement Monocytes/100 WBC (Bld) 7.2 % Normal 1.7-12.0 [facility] Comment on above: Performed By: #### C BC ####[facility] Lipfvtlyhk[address] [place] [address]DrKasia Abiel Urbano NEUT # 7.9 103/ul Critically high 1.4-6.5 [facility] Comment on above: Performed By: #### C BC ####[facility] K[address]tsxbglpb7153 [place] [id number] Suyapaviviana Clement Neutrophils/100 WBC (Bld) 74.1 % Normal 43.0-75.0 [facility] Comment on above: Performed By: #### C BC ####[facility] P[address]xp[address]wrkx4[address] [place] [id number] Suyapaviviana Clement Platelet mean volume (Bld) [Entitic vol] 10.9 fL Normal 9.5-13.5 [facility] Comment on above: Performed By: #### C BC ####[facility] [address]mt[address] [place], [place] [address]Wi. Abiel Clement PLT 308 103/ul Normal 150-450 [facility] Comment on above: Performed By: #### C BC ####[facility] Zx[address]24[address] [place], [place] [address]An. Abiel Clement RBC 4.32 106/ul Normal 4.20-5.40 [facility] Comment on above: Performed By: #### C BC ####[facility] [address]ov[address] [place], [place] [address]Sq. Abiel Clement WBC 10.6 103/ul Normal 4.0-11.0 [facility] Comment on above: Performed By: #### C BC ####[facility] X[address]sp[address] [place] [id number]. Abiel Clement Covid-19 PCR (CVDTB)on 04-06 SARS-CoV-2 (COVID-19) RNA CLARIBEL+probe Ql (Unsp spec) Not detected Normal NOT DETECTED [facility] Comment on above: Result Comment: When [...] for this test is supported by the [employer] and Human Service's declaration that [...] be used). Performed By: #### C VDTBH ####[facility] [address]yl[address] [place] [id number]. Abiel Clement LACTATE/LACTIC ACIDon 2021 Lactate [Moles/Vol] 2.3 mmol/L Critically high 0.4-1.9 [facility] Comment on above: Performed By: #### L ACT ####[facility] [address]urpqv[address] [place] [address]Dr. Abiel Clement Lactate [Moles/Vol] 3.3 mmol/L Critically high 0.4-1.9 [facility] Comment on above: Performed By: #### L ACT ####[facility] Zzgqwiieyb9[address] [place] [address]Dr. Abiel Clement PROF 14(COMP METB)on 022 Albumin [Mass/Vol] 3.0 g/dL Critically low 3.4-5.0 [facility] Comment on above: Performed By: #### B PAPER MAKING MACHINE OPERATOR, CMP, HSTROPN ####[facility] Wu[address]wz45[address] [place] [address]Dr. Abiel Clement Albumin/Globulin [Mass ratio] 0.7 {ratio} Normal [facility] Comment on above: Performed By: #### B PAPER MAKING MACHINE OPERATOR, CMP, HSTROPN ####[facility] [address] [place] [address]Dr. Abiel Clement ALP [Catalytic activity/Vol] 218 U/L Critically high 46-116 [facility] Comment on above: Performed By: #### B PAPER MAKING MACHINE OPERATOR, CMP, HSTROPN ####[facility] Zrtvgbczef3724 [place] [address]Dr. Abiel Clement ALT [Catalytic activity/Vol] 29 U/L Normal 14-59 [facility] Comment on above: Performed By: #### B PAPER MAKING MACHINE OPERATOR, CMP, HSTROPN ####[facility] Xyinewukia[address] [place] [address]Dr. Abiel Clement Anion gap [Moles/Vol] 14.3 mmol/L Normal [facility] Comment on above: Performed By: #### B PAPER MAKING MACHINE OPERATOR, CMP, HSTROPN ####[facility] Mpdnqwpstr[address]35 [place] [address]Dr. Abiel Clement AST [Catalytic activity/Vol] 20 U/L Normal 15-37 [facility] Comment on above: Performed By: #### B PAPER MAKING MACHINE OPERATOR, CMP, HSTROPN ####[facility] Mmzsmxoqzo9191 [place] [address]Dr. Abiel Clement Bilirubin [Mass/Vol] 0.3 mg/dL Normal 0.2-1.0 [facility] Comment on above: Performed By: #### B PAPER MAKING MACHINE OPERATOR, CMP, HSTROPN ####[facility] Rtibbonroh[address] [place], [place] [address]Dr. Abiel Clement Calcium [Mass/Vol] 9.2 mg/dL Normal 8.5-10.1 [facility] Comment on above: Performed By: #### B PAPER MAKING MACHINE OPERATOR, CMP, HSTROPN ####[facility] Dqxvujgmcb50[address] [place], [place] [address]Dr. Abiel Clement Chloride [Moles/Vol] 98 mmol/L Normal 98-107 [facility] Comment on above: Performed By: #### B PAPER MAKING MACHINE OPERATOR, CMP, HSTROPN ####[facility] Uyqestngjp[address] [place], [place] [address]Dr. Abiel Clement CO2 [Moles/Vol] 26.5 mmol/L Normal 21.0-32.0 [facility] Comment on above: Performed By: #### B PAPER MAKING MACHINE OPERATOR, CMP, HSTROPN ####[facility] Wlgbhxovpb958[address] [place], [place] [address]Dr. Abiel Clement Creatinine [Mass/Vol] 1.10 mg/dL Critically high 0.55-1.02 [facility] Comment on above: Performed By: #### B PAPER MAKING MACHINE OPERATOR, CMP, HSTROPN ####[facility] S[address]xfwbch[address] [place] [address]Dr. Abiel Clement EGFR-AF ALBANIAN >60 Normal >=60 [facility] Comment on above: Performed By: #### B PAPER MAKING MACHINE OPERATOR, CMP, HSTROPN ####[facility] Otrywmfvlm[address] [place] [address]Dr. Abiel Urbano EGFR-NON AF ALBANIAN 50 mL/min/1.73m2 Critically low >=60 [facility] Comment on above: Performed By: #### B PAPER MAKING MACHINE OPERATOR, CMP, HSTROPN ####[facility] Wggihewvqo6840 [place] [address]Dr. Abiel Clement Globulin (S) [Mass/Vol] 4.3 g/dL Normal [facility] Comment on above: Performed By: #### B PAPER MAKING MACHINE OPERATOR, CMP, HSTROPN ####[facility] Zxfudotqio7844 [place] [address]Dr. Abiel Clement Glucose [Mass/Vol] 338 mg/dL Critically high 74-106 [facility] Comment on above: Performed By: #### B PAPER MAKING MACHINE OPERATOR, CMP, HSTROPN ####[facility] Jzngsatcdw299[address] [place], [place] [address]Dr. Abiel Clement Potassium [Moles/Vol] 3.8 mmol/L Normal 3.5-5.1 [facility] Comment on above: Performed By: #### B PAPER MAKING MACHINE OPERATOR, CMP, HSTROPN ####[facility] Drdfzkmjqd6700[address] [place], [place] [address]Dr. Abiel Clement Protein [Mass/Vol] 7.3 g/dL Normal 6.4-8.2 [facility] Comment on above: Performed By: #### B PAPER MAKING MACHINE OPERATOR, CMP, HSTROPN ####[facility] Ptznfsmodq2901 [place] [address]Dr. Abiel Clement Sodium [Moles/Vol] 135 mmol/L Critically low 136-145 [facility] Comment on above: Performed By: #### B PAPER MAKING MACHINE OPERATOR, CMP, HSTROPN ####[facility] Atshurhzjv969[address] [place], [place] [address]Dr. Abiel Clement Urea nitrogen [Mass/Vol] 23.0 mg/dL Critically high 7.0-18.0 [facility] Comment on above: Performed By: #### B PAPER MAKING MACHINE OPERATOR, CMP, HSTROPN ####[facility] Lysarjeyrj57[address] [place] [address]Dr. Abiel Clement Urea nitrogen/Creatinine [Mass ratio] 20.9 mg/mg Normal [facility] Comment on above: Performed By: #### B PAPER MAKING MACHINE OPERATOR, CMP, HSTROPN ####[facility] Rvyzrnfxpc0123 [place] [id number]. Abiel Clement TROPONIN, HIGH SENSITIVITYon 04-30-2022 HSTROP 3.8 pg/mL Critically low 4.0-51.3 [facility] Comment on above: Result Comment: CUT- OFF POINTS HAVE BEEN ESTABLISHED BASED ON THE FOURTH UNIVERSAL DEFINITIONS OF MYOCARDIALINFARCTION. THE UPPER REFERENCE LIMIT (URL) OF TROPONIN, DEFINED THE 99TH PERCENTILE OFcTnI DISTRIBUTION IN A REFERENCE POPULATION, HAS BEEN CONFIRMED THE DECISION THRESHOLDFOR PR DIAGNOSIS. Performed By: #### H STROPN ####[facility] Hfipwdcqhk18[address] [place], [place] [address]Dr. Abiel Urbano HSTROP 4.0 pg/mL Normal 4.0-51.3 [facility] Comment on above: Result Comment: CUT- OFF POINTS HAVE BEEN ESTABLISHED BASED ON THE FOURTH UNIVERSAL DEFINITIONS OF MYOCARDIALINFARCTION. THE UPPER REFERENCE LIMIT (URL) OF TROPONIN, DEFINED THE 99TH PERCENTILE OFcTnI DISTRIBUTION IN A REFERENCE POPULATION, HAS BEEN CONFIRMED THE DECISION THRESHOLDFOR PR DIAGNOSIS. Performed By: #### B PAPER MAKING MACHINE OPERATOR, CMP, HSTROPN ####[facility] Gfdrzebdgw[address] [place], [place] [address]Dr. Abiel Urbano XR CHEST 1 Von 04-30-2022 XR CHEST 1 V Normal [facility] BNPon 03-15-2022 Natriuretic peptide B (Bld) [Mass/Vol] 2586.0 pg/mL Critically high <=900.0 [facility] Comment on above: Result Comment: repe ated Performed By: #### C MP, BNP, HSTROPN ####[facility] X[address]ikfhtgk9[address] [place] [address]Dr. Abiel Urbano CBC AUTO DIFFon 03-15-2022 BASO # 0.0 103/ul Normal 0.0-0.1 [facility] Comment on above: Performed By: #### C BC ####[facility] Qafcwdhoad549[address] [place] [address]Dr. Abiel Clement Basophils/100 WBC (Bld) 0.4 % Normal 0.2-2.0 [facility] Comment on above: Performed By: #### C BC ####[facility] Dthsvoytdb9149 [place] [address]Dr. Abiel Clement EO # 0.1 103/ul Normal 0.0-0.7 [facility] Comment on above: Performed By: #### C BC ####[facility] Ijpiadgqtw3683 [place] [address]Dr. Abiel Clement Eosinophils/100 WBC (Bld) 1.8 % Normal 0.9-7.0 [facility] Comment on above: Performed By: #### C BC ####[facility] Ddjkunofbe3904[address] [place], [place] [address]Dr. Abiel Clement Erythrocyte distribution width (RBC) [Ratio] 13.7 % Normal 11.0-15.0 [facility] Comment on above: Performed By: #### C BC ####[facility] Vmoznkcrhy7[address] [place], [place] [address]Dr. Abiel Clement Hematocrit (Bld) [Volume fraction] 29.7 % Critically low 36.0-48.0 [facility] Comment on above: Performed By: #### C BC ####[facility] Ykagdtosjs644[address] [place], [place] [address]Dr. Abiel Clement Hemoglobin (Bld) [Mass/Vol] 9.5 g/dL Critically low 12.0-16.0 [facility] Comment on above: Performed By: #### C BC ####[facility] Rhpblycgnv[address] [place], [place] [address]Dr. Abiel Clement IG # 0.02 10e3/ul Normal 0.00-0.03 [facility] Comment on above: Performed By: #### C BC ####[facility] Oeqgliwifu[address] [place], [place] [address]Dr. Abiel Clement IG % 0.3 % Normal 0.0-0.5 [facility] Comment on above: Performed By: #### C BC ####[facility] Nizhdqhyum[address] [place], [place] [address]DrKasia Clement LYMPH # 1.6 103/ul Normal 1.2-3.8 [facility] Comment on above: Performed By: #### C BC ####[facility] Fhlwufnhpj5144 [place] [id number]. Abiel Clement Lymphocytes/100 WBC (Bld) 20.1 % Critically low 20.5-60.0 [facility] Comment on above: Performed By: #### C BC ####[facility] Lawmgoigid2583 [place] [id number] Clement MANUAL DIFF REQ NO Normal [facility] Comment on above: Performed By: #### C BC ####[facility] Xzeynirbsi2910 [place] [id number]. Abiel Clement MCH (RBC) [Entitic mass] 29.6 pg Normal 26.7-34.0 [facility] Comment on above: Performed By: #### C BC ####[facility] Qrlvisageo8112[address] [place], [place] [address]Dr. Abiel Clement MCHC (RBC) [Mass/Vol] 32.0 g/dL Normal 29.9-35.2 [facility] Comment on above: Performed By: #### C BC ####[facility] T[address]iaxtiel[address] [place], [place] [id number] Clement MCV (RBC) [Entitic vol] 92.5 fL Normal 81.0-99.0 [facility] Comment on above: Performed By: #### C BC ####[facility] Twzaevzaeh0318 [place] [address]Dr. Abiel Clement MONO # 0.6 103/ul Normal 0.3-0.8 [facility] Comment on above: Performed By: #### C BC ####[facility] Xudwqtitsm[address] [place], [place] [id number] Clement Monocytes/100 WBC (Bld) 7.1 % Normal 1.7-12.0 [facility] Comment on above: Performed By: #### C BC ####[facility] Ekfugovtuo[address] [place], [place] [id number] Clement NEUT # 5.5 103/ul Normal 1.4-6.5 [facility] Comment on above: Performed By: #### C BC ####[facility] Gynlyxulsp9711 [place] [address]DrKasia Clement Neutrophils/100 WBC (Bld) 70.3 % Normal 43.0-75.0 [facility] Comment on above: Performed By: #### C BC ####[facility] Kcsabtrfji0726 [place] [address]DrKasia Clement Platelet mean volume (Bld) [Entitic vol] 10.5 fL Normal 9.5-13.5 [facility] Comment on above: Performed By: #### C BC ####[facility] Orwzxttcoy9158 [place] [address]DrKasia Clement PLT 250 103/ul Normal 150-450 [facility] Comment on above: Performed By: #### C BC ####[facility] Mcisjvhxzq8896 [place] [address]DrKasia Clement RBC 3.21 106/ul Critically low 4.20-5.40 [facility] Comment on above: Performed By: #### C BC ####[facility] Blkzojsxiu644[address] [place], [place] [address]DrKasia Clement WBC 7.9 103/ul Normal 4.0-11.0 [facility] Comment on above: Performed By: #### C BC ####[facility] Hjjacfodjc5663 [place] [address]DrKasia Clement PROF 14(COMP METB)on 022 Albumin [Mass/Vol] 2.2 g/dL Critically low 3.4-5.0 [facility] Comment on above: Performed By: #### C MP, BNP, HSTROPN ####[facility] Obfxoeodzx[address] [place] [address]DrKasia Clement Albumin/Globulin [Mass ratio] 0.6 {ratio} Normal [facility] Comment on above: Performed By: #### C MP, BNP, HSTROPN ####[facility] Kncgpyjhny1724 [place] [address]DrKasia Clement ALP [Catalytic activity/Vol] 112 U/L Normal 46-116 [facility] Comment on above: Performed By: #### C MP, BNP, HSTROPN ####[facility] Lmdwifjbuq[address] [place] [address]Dr. Abiel Clement ALT [Catalytic activity/Vol] 19 U/L Normal 14-59 [facility] Comment on above: Performed By: #### C MP, BNP, HSTROPN ####[facility] Uunovvgnlg[address] [place] [address]Dr. Abiel Clement Anion gap [Moles/Vol] 12.2 mmol/L Normal [facility] Comment on above: Performed By: #### C MP, BNP, HSTROPN ####[facility] Hytewjorfa[address] [place], [place] [address]Dr. Abiel Clement AST [Catalytic activity/Vol] 15 U/L Normal 15-37 [facility] Comment on above: Performed By: #### C MP, BNP, HSTROPN ####[facility] Eixhlearuw668[address] [place], [place] [address]Dr. Abiel Clement Bilirubin [Mass/Vol] 0.3 mg/dL Normal 0.2-1.0 [facility] Comment on above: Performed By: #### C MP, BNP, HSTROPN ####[facility] Yhofpbbftg5[address] [place] [address]Dr. Abiel Clement Calcium [Mass/Vol] 8.6 mg/dL Normal 8.5-10.1 [facility] Comment on above: Performed By: #### C MP, BNP, HSTROPN ####[facility] Ablwflinjd9[address] [place] [address]Dr. Abiel Clement Chloride [Moles/Vol] 104 mmol/L Normal 98-107 [facility] Comment on above: Performed By: #### C MP, BNP, HSTROPN ####[facility] Gwypjpdosg4[address] [place] [address]Dr. Abiel Clement CO2 [Moles/Vol] 25.3 mmol/L Normal 21.0-32.0 [facility] Comment on above: Performed By: #### C MP, BNP, HSTROPN ####[facility] Dylltgctri6490 [place] [address]Dr. Abiel Clement Creatinine [Mass/Vol] 0.98 mg/dL Normal 0.55-1.02 [facility] Comment on above: Performed By: #### C MP, BNP, HSTROPN ####[facility] Hwuikbyfli15[address] [place] [address]Dr. Abiel Clement EGFR-AF ALBANIAN >60 Normal >=60 [facility] Comment on above: Performed By: #### C MP, BNP, HSTROPN ####[facility] Kkuebsrqon18[address] [place], [place] [address]Dr. Abiel Clement EGFR-NON AF ALBANIAN 58 mL/min/1.73m2 Critically low >=60 [facility] Comment on above: Performed By: #### C MP, BNP, HSTROPN ####[facility] Rtqxtdfebm67[address] [place], [place] [address]Dr. Abiel Clement Globulin (S) [Mass/Vol] 3.7 g/dL Normal [facility] Comment on above: Performed By: #### C MP, BNP, HSTROPN ####[facility] Wdfbbhsmna38[address] [place], [place] [address]Dr. Abiel Clement Glucose [Mass/Vol] 279 mg/dL Critically high 74-106 [facility] Comment on above: Performed By: #### C MP, BNP, HSTROPN ####[facility] Ncrgvcffgp3263 [place] [address]Dr. Abiel Clement Potassium [Moles/Vol] 3.5 mmol/L Normal 3.5-5.1 [facility] Comment on above: Performed By: #### C MP, BNP, HSTROPN ####[facility] Ikrqtsvago[address] [place], [place] [address]Dr. Abiel Clement Protein [Mass/Vol] 5.9 g/dL Critically low 6.4-8.2 [facility] Comment on above: Performed By: #### C MP, BNP, HSTROPN ####[facility] Teyilpnbix6929 [place] [address]Dr. Abiel Clement Sodium [Moles/Vol] 138 mmol/L Normal 136-145 [facility] Comment on above: Performed By: #### C MP, BNP, HSTROPN ####[facility] Ssspzaoait7354 [place] [address]Dr. Abiel Clement Urea nitrogen [Mass/Vol] 23.0 mg/dL Critically high 7.0-18.0 [facility] Comment on above: Performed By: #### C MP, BNP, HSTROPN ####[facility] Zpjrdtbsig16[address] [place], [place] [address]Dr. Abiel Clement Urea nitrogen/Creatinine [Mass ratio] 23.5 mg/mg Normal [facility] Comment on above: Performed By: #### C MP, BNP, HSTROPN ####[facility] Lhmswgmpeh[address] [place], [place] [address]Dr. Abiel Clement TROPONIN, HIGH SENSITIVITYon 03-15-2022 HSTROP 9.0 pg/mL Normal 4.0-51.3 [facility] Comment on above: Result Comment: CUT- OFF POINTS HAVE BEEN ESTABLISHED BASED ON THE FOURTH UNIVERSAL DEFINITIONS OF MYOCARDIALINFARCTION. THE UPPER REFERENCE LIMIT (URL) OF TROPONIN, DEFINED THE 99TH PERCENTILE OFcTnI DISTRIBUTION IN A REFERENCE POPULATION, HAS BEEN CONFIRMED THE DECISION THRESHOLDFOR PR DIAGNOSIS. Performed By: #### C MP, BNP, HSTROPN ####[facility] Sdmpqlbqse[address] [place], [place] [address]Dr. Abiel Clement BNPon 03-14-2022 Natriuretic peptide B (Bld) [Mass/Vol] 3438.0 pg/mL Critically high <=900.0 [facility] Comment on above: Performed By: #### H STROPN, BNP, CMP ####[facility] Kelhboycfs[address] [place], [place] [address]Dr. Abiel Clement CBC AUTO DIFFon 03-14-2022 BASO # 0.0 103/ul Normal 0.0-0.1 [facility] Comment on above: Performed By: #### C BC ####[facility] Wkgyxkwdnp216[address] [place] [id number]. Abiel Clement Basophils/100 WBC (Bld) 0.4 % Normal 0.2-2.0 [facility] Comment on above: Performed By: #### C BC ####[facility] Vlbxambtek9274 [place] [id number]. Abiel Clement EO # 0.1 103/ul Normal 0.0-0.7 [facility] Comment on above: Performed By: #### C BC ####[facility] Jxqolnuicc257[address] [place], [place] [address]Dr. Abiel Clement Eosinophils/100 WBC (Bld) 0.9 % Normal 0.9-7.0 [facility] Comment on above: Performed By: #### C BC ####[facility] Bozbfybmpz4[address] [place], [place] [address]Dr. Abiel Clement Erythrocyte distribution width (RBC) [Ratio] 13.5 % Normal 11.0-15.0 [facility] Comment on above: Performed By: #### C BC ####[facility] Cmbfygrpsj6[address] [place], [place] [address]Dr. Abiel Clement Hematocrit (Bld) [Volume fraction] 29.5 % Critically low 36.0-48.0 [facility] Comment on above: Performed By: #### C BC ####[facility] Eisqcaztcx[address] [place], [place] [id number]. Abiel Clement Hemoglobin (Bld) [Mass/Vol] 9.3 g/dL Critically low 12.0-16.0 [facility] Comment on above: Performed By: #### C BC ####[facility] Hvqfupaodr[address] [place], [place] [address]Dr. Abiel Clement IG # 0.07 10e3/ul Critically high 0.00-0.03 [facility] Comment on above: Performed By: #### C BC ####[facility] Ffuttznees[address] [place], [place] [address]Dr. Abiel Clement IG % 0.7 % Critically high 0.0-0.5 [facility] Comment on above: Performed By: #### C BC ####[facility] Bdtmmrqgvp1744 [place] [id number]. Abiel Urbano LYMPH # 1.7 103/ul Normal 1.2-3.8 [facility] Comment on above: Performed By: #### C BC ####[facility] Kpmyeizvds0118 [place] [id number]. Abile Clement Lymphocytes/100 WBC (Bld) 17.0 % Critically low 20.5-60.0 [facility] Comment on above: Performed By: #### C BC ####[facility] Jrlvgrrmhq9583 [place] [id number]. Abiel Clement MANUAL DIFF REQ NO Normal [facility] Comment on above: Performed By: #### C BC ####[facility] Ukvaarjwas4044 [place] [id number]. Abiel Clement MCH (RBC) [Entitic mass] 29.2 pg Normal 26.7-34.0 [facility] Comment on above: Performed By: #### C BC ####[facility] Oxqhfbnxzv6460 [place] [id number]. Abiel Clement MCHC (RBC) [Mass/Vol] 31.5 g/dL Normal 29.9-35.2 [facility] Comment on above: Performed By: #### C BC ####[facility] Nkrenqvkqp4329 [place] [id number]. Abiel Clement MCV (RBC) [Entitic vol] 92.5 fL Normal 81.0-99.0 [facility] Comment on above: Performed By: #### C BC ####[facility] Dzcamxuuch5147 [place] [address]Dr. Abiel Clement MONO # 0.9 103/ul Critically high 0.3-0.8 [facility] Comment on above: Performed By: #### C BC ####[facility] Uwabsofyvo1156 [place] [id number]. Abiel Clement Monocytes/100 WBC (Bld) 9.1 % Normal 1.7-12.0 [facility] Comment on above: Performed By: #### C BC ####[facility] Bpqucjaucr7394 [place] [id number]. Abiel Clement NEUT # 7.3 103/ul Critically high 1.4-6.5 [facility] Comment on above: Performed By: #### C BC ####[facility] Pzlczeszwi0839 [place] [id number]. Abiel Clement Neutrophils/100 WBC (Bld) 71.9 % Normal 43.0-75.0 [facility] Comment on above: Performed By: #### C BC ####[facility] Yrcwpurjbr5783 [place] [id number]. Abiel Clement Platelet mean volume (Bld) [Entitic vol] 11.0 fL Normal 9.5-13.5 [facility] Comment on above: Performed By: #### C BC ####[facility] Lv[address]hlgwag9[address] [place] [address]Dr. Abeil Clement PLT 232 103/ul Normal 150-450 [facility] Comment on above: Performed By: #### C BC ####[facility] Jcllmukcsb6593 [place] [id number]. Abiel Clement RBC 3.19 106/ul Critically low 4.20-5.40 [facility] Comment on above: Performed By: #### C BC ####[facility] Gotwzlyaqh2032 [place] [id number]. Abiel Clement WBC 10.1 103/ul Normal 4.0-11.0 [facility] Comment on above: Performed By: #### C BC ####[facility] Pqnfaigtrj6609 [place] [id number]. Abiel Clement POINT OF CARE GLUCOSEon 03-05 0-2021 Glucose [Mass/Vol] 141 mg/dL Critically high 74-106 [facility] [place] [facility] Comment on above: Performed By: #### P OCGLUC ####[facility] Xoyczhhjdi7659 [place] [address]Dr. Abiel Clement Glucose [Mass/Vol] 182 mg/dL Critically high 74-106 [facility] [place] [facility] Comment on above: Performed By: #### P OCGLUC ####[facility] Qlnxbfkhsp8276 [place] [address]Dr. Abiel Clement Glucose [Mass/Vol] 235 mg/dL Critically high [facility]106 [facility] [place] [facility] Comment on above: Performed By: #### P OCGLUC ####[facility] Vixrbpxdjy2464 [place] [address]Dr. Abiel Clement Glucose [Mass/Vol] 246 mg/dL Critically high -106 [facility] [place] [facility] Comment on above: Performed By: #### P OCGLUC ####[facility] Pjyrruxuax1810 [place] [address]Dr. Abiel Clement Glucose [Mass/Vol] 256 mg/dL Critically high -[address] [place] [address] Comment on above: Performed By: #### P OCGLUC ####[facility] [address]ohrtmoyep[address] [place], [place] [address]Dr. Abiel Clement Glucose [Mass/Vol] 249 mg/dL Critically high [address] [place] [address] Comment on above: Performed By: #### P OCGLUC ####[facility] Qoszlvnvsg0699 [place] [address]Dr. Abiel Clement PROF 14(COMP METB)on 022 Albumin [Mass/Vol] 2.2 g/dL Critically low 3.4-5.0 [facility] Comment on above: Performed By: #### H STROPN, BNP, CMP ####[facility] Cchxyiobjc2085 [place] [address]Dr. Abiel Clement Albumin/Globulin [Mass ratio] 0.6 {ratio} Normal [facility] Comment on above: Performed By: #### H STROPN, BNP, CMP ####[facility] Rnkjckvemj9073 [place] [address]Dr. Abiel Clement ALP [Catalytic activity/Vol] 114 U/L Normal 46-116 [facility] Comment on above: Performed By: #### H STROPN, BNP, CMP ####[facility] Yveuitftpk9744 [place] [address]Dr. Abiel Clement ALT [Catalytic activity/Vol] 20 U/L Normal 14-59 [facility] Comment on above: Performed By: #### H STROPN, BNP, CMP ####[facility] Ayilfchjvx9588 [place] [address]Dr. Abiel Clement Anion gap [Moles/Vol] 9.7 mmol/L Normal [facility] Comment on above: Performed By: #### H STROPN, BNP, CMP ####[facility] Xioabycdke5283 [place] [address]Dr. Abiel Clement AST [Catalytic activity/Vol] 18 U/L Normal 15-37 [facility] Comment on above: Performed By: #### H STROPN, BNP, CMP ####[facility] Bjifaoaegx3845 [place] [address]Dr. Abiel Clement Bilirubin [Mass/Vol] 0.2 mg/dL Normal 0.2-1.0 [facility] Comment on above: Performed By: #### H STROPN, BNP, CMP ####[facility] Iwsuhjvfnx[address] [place], [place] [address]Dr. Abiel Clement Calcium [Mass/Vol] 8.4 mg/dL Critically low 8.5-10.1 [facility] Comment on above: Performed By: #### H STROPN, BNP, CMP ####[facility] Ktyvgftoez7022 [place] [address]Dr. Abiel Clement Chloride [Moles/Vol] 105 mmol/L Normal 98-107 [facility] Comment on above: Performed By: #### H STROPN, BNP, CMP ####[facility] Boppqfwxkw8778 [place] [address]Dr. Abiel Clement CO2 [Moles/Vol] 26.1 mmol/L Normal 21.0-32.0 [facility] Comment on above: Performed By: #### H STROPN, BNP, CMP ####[facility] Tnoiijwanh7969 [place] [address]Dr. Abiel Clement Creatinine [Mass/Vol] 1.01 mg/dL Normal 0.55-1.02 [facility] Comment on above: Performed By: #### H STROPN, BNP, CMP ####[facility] Pfrnygsdqp7399 [place] [address]Dr. Abiel Clement EGFR-AF ALBANIAN >60 Normal >=60 [facility] Comment on above: Performed By: #### H STROPN, BNP, CMP ####[facility] Qidndhkgtx3300 [place] [address]Dr. Abiel Clement EGFR-NON AF ALBANIAN 56 mL/min/1.73m2 Critically low >=60 [facility] Comment on above: Performed By: #### H STROPN, BNP, CMP ####[facility] Hbzituokzw4544 [place] [address]Dr. Abiel Clement Globulin (S) [Mass/Vol] 3.4 g/dL Normal [facility] Comment on above: Performed By: #### H STROPN, BNP, CMP ####[facility] Idtiduzrpv0931 [place] [address]Dr. Abiel Clement Glucose [Mass/Vol] 267 mg/dL Critically high 74-106 [facility] [place] [facility] Comment on above: Performed By: #### H STROPN, BNP, CMP ####[facility] Nhyslvsudf[address] [place], [place] [address]Dr. Abiel Clement Potassium [Moles/Vol] 3.8 mmol/L Normal 3.5-5.1 [facility] Comment on above: Performed By: #### H STROPN, BNP, CMP ####[facility] Jwxjpmpgzr9152 [place] [address]Dr. Abiel Clement Protein [Mass/Vol] 5.6 g/dL Critically low 6.4-8.2 [facility] Comment on above: Performed By: #### H STROPN, BNP, CMP ####[facility] Skfpugibck[address] [place], [place] [address]Dr. Abiel Clement Sodium [Moles/Vol] 137 mmol/L Normal 136-145 [facility] Comment on above: Performed By: #### H STROPN, BNP, CMP ####[facility] Wbncutiqoz5181 [place] [address]Dr. Abiel Clement Urea nitrogen [Mass/Vol] 28.0 mg/dL Critically high 7.0-18.0 [facility] Comment on above: Performed By: #### H STROPN, BNP, CMP ####[facility] Bctxehsczj6696 [place] [address]Dr. Abiel Clement Urea nitrogen/Creatinine [Mass ratio] 27.7 mg/mg Normal [facility] Comment on above: Performed By: #### H STROPN, BNP, CMP ####[facility] Nwhacdtnhm5102 [place] [address]Dr. Suyapaviviana Clement TROPONIN, HIGH SENSITIVITYon 03-14-2022 HSTROP 13.7 pg/mL Normal 4.0-51.3 [facility] Comment on above: Result Comment: CUT- OFF POINTS HAVE BEEN ESTABLISHED BASED ON THE FOURTH UNIVERSAL DEFINITIONS OF MYOCARDIALINFARCTION. THE UPPER REFERENCE LIMIT (URL) OF TROPONIN, DEFINED THE 99TH PERCENTILE OFcTnI DISTRIBUTION IN A REFERENCE POPULATION, HAS BEEN CONFIRMED THE DECISION THRESHOLDFOR PR DIAGNOSIS. Performed By: #### H STROPN, BNP, CMP ####[facility] [address]mmvvktgnt[address] [place], [place] [address]Dr. Abiel Clement BNPon 03-13-2022 Natriuretic peptide B (Bld) [Mass/Vol] 1791.0 pg/mL Critically high <=900.0 [facility] Comment on above: Performed By: #### C MP, BNP ####[facility] Rryjzqwadh2810 [place] [address]Dr. Abiel Clement Natriuretic peptide B (Bld) [Mass/Vol] 698.0 pg/mL Normal <=900.0 [facility] Comment on above: Performed By: #### B PAPER MAKING MACHINE OPERATOR, CMP ####[facility] Lwasalbfzt2708 [place] [address]Dr. Abiel Clement CBC AUTO DIFFon 03-13-2022 BASO # 0.0 103/ul Normal 0.0-0.1 [facility] Comment on above: Performed By: #### C BC ####[facility] Wystavdvwf9188 [place] [address]Dr. Abiel Clement Basophils/100 WBC (Bld) 0.2 % Normal 0.2-2.0 [facility] Comment on above: Performed By: #### C BC ####[facility] Rqmwpttxdz0547 [place] [address]DrKasia Clement EO # 0.0 103/ul Normal 0.0-0.7 [facility] Comment on above: Performed By: #### C BC ####[facility] Wuohlzcyor594[address] [place], [place] [address]Dr. Abiel Clement Eosinophils/100 WBC (Bld) 0.0 % Critically low 0.9-7.0 [facility] Comment on above: Performed By: #### C BC ####[facility] Oweyzxbdlo580[address] [place], [place] [address]Dr. Abiel Clement Erythrocyte distribution width (RBC) [Ratio] 13.3 % Normal 11.0-15.0 [facility] Comment on above: Performed By: #### C BC ####[facility] Joyjzwxlht6[address] [place], [place] [address]Dr. Abiel Clement Hematocrit (Bld) [Volume fraction] 33.4 % Critically low 36.0-48.0 [facility] Comment on above: Performed By: #### C BC ####[facility] Jgeixdlroh35[address] [place], [place] [address]DrKasia Clement Hemoglobin (Bld) [Mass/Vol] 10.6 g/dL Critically low 12.0-16.0 [facility] Comment on above: Performed By: #### C BC ####[facility] Uvooxykssy349[address] [place], [place] [address]DrKasia Clement IG # 0.13 10e3/ul Critically high 0.00-0.03 [facility] Comment on above: Performed By: #### C BC ####[facility] Eyrhswwevb9[address] [place], [place] [address]Dr. Abiel Clement IG % 0.8 % Critically high 0.0-0.5 [facility] Comment on above: Performed By: #### C BC ####[facility] Aebubvcmsg40[address] [place], [place] [address]DrKasia Clement LYMPH # 1.0 103/ul Critically low 1.2-3.8 [facility] Comment on above: Performed By: #### C BC ####[facility] Ugcrvkflzv5693 [place] [address]Dr. Abiel Clement Lymphocytes/100 WBC (Bld) 6.0 % Critically low 20.5-60.0 [facility] Comment on above: Performed By: #### C BC ####[facility] Qosdkfitkc814[address] [place], [place] [address]Dr. Abiel Clement MANUAL DIFF REQ NO Normal [facility] Comment on above: Performed By: #### C BC ####[facility] Lhpadvllob512[address] [place], [place] [address]Dr. Abiel Clement MCH (RBC) [Entitic mass] 30.0 pg Normal 26.7-34.0 [facility] Comment on above: Performed By: #### C BC ####[facility] Vosoexxjtn[address] [place], [place] [address]Dr. Abiel Clement MCHC (RBC) [Mass/Vol] 31.7 g/dL Normal 29.9-35.2 [facility] Comment on above: Performed By: #### C BC ####[facility] Enddrsbqne01[address] [place], [place] [address]DrKasia Clement MCV (RBC) [Entitic vol] 94.6 fL Normal 81.0-99.0 [facility] Comment on above: Performed By: #### C BC ####[facility] Sicsqvkkin225[address] [place], [place] [address]Dr. Abiel Clement MONO # 1.4 103/ul Critically high 0.3-0.8 [facility] Comment on above: Performed By: #### C BC ####[facility] Sfyhdmzvqr[address] [place], [place] [address]DrKasia Clement Monocytes/100 WBC (Bld) 8.9 % Normal 1.7-12.0 [facility] Comment on above: Performed By: #### C BC ####[facility] Fuhdnlsvej98[address] [place], [place] [address]Dr. Abiel Clemnet NEUT # 13.3 103/ul Critically high 1.4-6.5 [facility] Comment on above: Performed By: #### C BC ####[facility] Rbfjxuqrak1074 [place] [address]Dr. Abiel Clement Neutrophils/100 WBC (Bld) 84.1 % Critically high 43.0-75.0 [facility] Comment on above: Performed By: #### C BC ####[facility] Plwzqszxyb[address] [place], [place] [address]Dr. Abiel Clement Platelet mean volume (Bld) [Entitic vol] 10.8 fL Normal 9.5-13.5 [facility] Comment on above: Performed By: #### C BC ####[facility] Jbeqyebtkb16[address] [place], [place] [address]Dr. Abiel Urbano PLT 243 103/ul Normal 150-450 [facility] Comment on above: Performed By: #### C BC ####[facility] Xuocfqwwce[address] [place], [place] [address]Dr. Abiel Clement RBC 3.53 106/ul Critically low 4.20-5.40 [facility] Comment on above: Performed By: #### C BC ####[facility] Qortfqentp8420[address] [place], [place] [address]Dr. Abiel Clement WBC 15.9 103/ul Critically high 4.0-11.0 [facility] Comment on above: Performed By: #### C BC ####[facility] Ypxjtuqkwf8[address] [place], [place] [address]Dr. Abiel Urbano CBC W MANUAL DIFFon 03-13-20 22 ATYPICAL LYMPH # Normal [facility] Comment on above: Performed By: #### C BCMAN ####[facility] Jizfypxxcd48[address] [place], [place] [address]Dr. Abiel Urbano ATYPICAL LYMPH % Normal [facility] Comment on above: Performed By: #### C BCMAN ####[facility] Rtxeotdtju[address] [place], [place] [address]Dr. Abiel Clement BAND # 0.8 103/ul Critically high 0.0-0.3 [facility] Comment on above: Performed By: #### C BCMAN ####[facility] Irsyaoduzf8476 [place] [id number]. Abiel Clement BAND % 6 % Critically high 0-5 [facility] Comment on above: Performed By: #### C BCMAN ####[facility] Qljltgvjms2350 [place] [id number]. Yiviviana Clement BASOM # 0.00 103/ul Normal 0.00-0.10 [facility] Comment on above: Performed By: #### C BCMAN ####[facility] Ylbzickfoq4173 [place] [id number]. Yiviviana Clement BASOM % 0.0 % Critically low 0.2-2.0 [facility] Comment on above: Performed By: #### C BCMAN ####[facility] Xcfxysbjbd7948 [place] [address]Dr. Yiviviana Clement BLAST # Normal [facility] Comment on above: Performed By: #### C BCMAN ####[facility] Qmrhdhqtlv0212 [place] [address]Dr. Yiviviana Clement BLAST % Normal [facility] Comment on above: Performed By: #### C BCMAN ####[facility] Txurpaqalp4886 [place] [address]Dr. Abiel Clement CORRECTED WBC Normal 4.0-11.0 [facility] Comment on above: Performed By: #### C BCMAN ####[facility] Pyswmcumkj2061 [place] [address]Dr. Yiviviana Clement EOS # 0.00 103/ul Normal 0.00-0.70 [facility] Comment on above: Performed By: #### C BCMAN ####[facility] [address]wmkcxwyaz[address] [place], [place] [address]Dr. Abiel Clement EOS% 0.0 % Critically low 0.9-7.0 [facility] Comment on above: Performed By: #### C BCMAN ####[facility] Kvamzdppmf6566 [place] [address]Dr. Yiviviana Clement HCT 38.5 % Normal 36.0-48.0 [facility] Comment on above: Performed By: #### C ALVINO ####[facility] Hlwlgphawr0541 [place], [place] [address]Cm. Abiel Clement HGB 12.5 g/dl Normal 12.0-16.0 [facility] Comment on above: Performed By: #### C ALVINO ####[facility] [address]wehcemwr6943 [place], [place] [address]Ik. Abiel Clement LYMPHM # 0.13 103/ul Critically low 1.20-3.80 [facility] Comment on above: Performed By: #### C ALVINO ####[facility] Kfdnjraorj0851 [place] [id number]. Abiel Clement LYMPHM% 1.0 % Critically low 20.5-60.0 [facility] Comment on above: Performed By: #### C ALVINO ####[facility] Ytixewqvow[address] [place] [id number]. Abiel Clement MCH 29.3 pg Normal 26.7-34.0 [facility] Comment on above: Performed By: #### C ALVINO ####[facility] Kblykmghkv468[address] [place] [id number]. Abiel Clement MCHC 32.5 g/dl Normal 29.9-35.2 [facility] Comment on above: Performed By: #### C ALVINO ####[facility] Qcmowbizbp8501 [place] [id number]. Abiel Clement MCV 90.4 fL Normal 81.0-99.0 [facility] Comment on above: Performed By: #### C ALVINO ####[facility] Lfyyvcgflj[address] [place], [place] [address]Fh. Abiel Clement METAMYELOCYTE # Normal [facility] Comment on above: Performed By: #### C ALVINO ####[facility] Zevcjqtxmu6[address] [place], [place] [address]Ng. Abiel Clement METAMYELOCYTE % Normal [facility] Comment on above: Performed By: #### C ALVINO ####[facility] Fsexxaaebc0798 [place] [id number]. Abiel Clement MONOM# 0.13 103/ul Critically low 0.30-0.80 [facility] Comment on above: Performed By: #### C ALVINO ####[facility] Ucyqoashed1442 [place] [id number]. Abiel Clement MONOM% 1.0 % Critically low 1.7-12.0 [facility] Comment on above: Performed By: #### C ALVINO ####[facility] Ebdpegzlca5679 [place] [id number]. Abiel Clement MPV 10.6 fL Normal 9.5-13.5 [facility] Comment on above: Performed By: #### C ALVINO ####[facility] Nizseawfes4060 [place] [id number]. Abiel Clement MYELOCYTE # Normal [facility] Comment on above: Performed By: #### C ALVINO ####[facility] Drscoslntg2417 [place] [id number]. Abiel Clement MYELOCYTE % Normal [facility] Comment on above: Performed By: #### C ALVINO ####[facility] Enkdlynxil2415 [place] [id number]. Abiel Clement NRBC Normal [facility] Comment on above: Performed By: #### C ALVINO ####[facility] Lftswgueuf5975 [place] [id number]. Abiel Clement PLT 307 103/ul Normal 150-450 [facility] Comment on above: Result Comment: Plat elet clumps noted on diff. Automated Platelet count may be falsely decreased Performed By: #### C ALVINO ####[facility] Rrevitoiwr2759 [place] [id number]. Abiel Clement RBC 4.26 106/ul Normal 4.20-5.40 [facility] Comment on above: Performed By: #### C ALVINO ####[facility] Dqvpyobgcc5257 [place] [id number]. Abiel Clement RDW 13.3 % Normal 11.0-15.0 [facility] Comment on above: Performed By: #### C BCMAN ####[facility] Dhwdupliuk[address] [place], [place] [address]Xs. Abiel Clement SEG # 11.68 103/ul Critically high 1.40-6.50 [facility] Comment on above: Performed By: #### C BCMAN ####[facility] Ryqjgasiyu0726 [place], [place] [address]Mo. Abiel Clement SEG % 92.0 % Critically high 43.0-75.0 [facility] Comment on above: Performed By: #### C BCMAN ####[facility] Hnvwljnxrq0604 [place], [place] [address]Ri. Abiel Clement WBC 12.7 103/ul Critically high 4.0-11.0 [facility] Comment on above: Performed By: #### C BCMAN ####[facility] Acbbsrldqh9706 [place], [place] [address]Wi. Abiel Clement CTA CHEST WO W CONon 022 CTA CHEST WO W CON Normal [facility] CULTURE BLOODon 03-13-2022 Microscopic examination of blood, culture Culture Observations: NO GROWTH AT 5 DAYS. Normal [facility] Comment on above: Performed By: #### B LDCX2 ####[facility] Rrzvvfirsk1619 [place], [place] [address]Sq. Abiel Clement Microscopic examination of blood, culture Culture Observations: NO GROWTH AT 5 DAYS. Normal [facility] Comment on above: Performed By: #### B LDCX1 ####[facility] Zwudrqbktf9415 [place] [id number]. Abiel Clement Covid-19 PCR (CVDTBH)on SARS-CoV-2 (COVID-19) RNA CLARIBEL+probe Ql (Unsp spec) Not detected Normal NOT DETECTED [facility] Comment on above: Result Comment: When [...] for this test is supported by the [employer] of Health and Human Service's declaration that [...] be used). Performed By: #### C VDTBH ####[facility] Ikntcrctmp[address] [place], [place] [address]Dr. Abiel Clement D-DIMERon 03-13-2022 D-DIMER 2.68 mg/L FEU Critically high <=0.59 [facility] Comment on above: Performed By: #### D DIM ####[facility] Ecejfzyuzl[address] [place], [place] [address]Dr. Abiel Clement D-DIMER COMMENTS SEE BELOW Normal [facility] Comment on above: Result Comment: [...] generalized hospitalization. Performed By: #### D DIM ####[facility] Zbzidrqefg423[address] [place], [place] [address]Dr. Abiel Clement LACTATE/LACTIC ACIDon 2021 Lactate [Moles/Vol] 1.6 mmol/L Normal 0.4-1.9 [facility] Comment on above: Performed By: #### L ACT ####[facility] Xxyxdpmxie7438 [place] [id number]. Abiel Clement Lactate [Moles/Vol] 2.0 mmol/L Critically high 0.4-1.9 [facility] Comment on above: Performed By: #### L ACT ####[facility] Vfzcawgilr27[address] [place] [address]Dr. Abiel Urbano POINT OF CARE GLUCOSEon Glucose [Mass/Vol] 359 mg/dL Critically high 74-106 [facility] [place] [facility] Comment on above: Performed By: #### P OCGLUC ####[facility] Plrthuionc77[address] [place] [address]Dr. Abiel Clement Glucose [Mass/Vol] 428 mg/dL Critically high 74-106 [facility] [place] [facility] Comment on above: Performed By: #### P OCGLUC ####[facility] Hmnskvvqfg7795 [place] [address]Dr. Suyapaviviana Clement Glucose [Mass/Vol] 461 mg/dL Critically high 74-106 [facility] [place] [facility] Comment on above: Performed By: #### P OCGLUC ####[facility] Vqqdcchpgw[address] [place], [place] [address]Dr. Abiel Clement Glucose [Mass/Vol] 494 mg/dL Critically high 74-106 [facility] [place] [facility] Comment on above: Performed By: #### P OCGLUC ####[facility] Cxrzptiica[address] [place], [place] [address]Dr. Abiel Clement PROF 14(COMP METB)on 022 Albumin [Mass/Vol] 2.4 g/dL Critically low 3.4-5.0 [facility] Comment on above: Performed By: #### C MP, BNP ####[facility] Wksbhohxtg23[address] [place] [address]Dr. Abiel Clement Albumin/Globulin [Mass ratio] 0.6 {ratio} Normal [facility] Comment on above: Performed By: #### C MP, BNP ####[facility] Fuaqfnhsju[address] [place], [place] [address]Dr. Abiel Clement ALP [Catalytic activity/Vol] 128 U/L Critically high 46-116 [facility] Comment on above: Performed By: #### C MP, BNP ####[facility] Mrxiqqknbq770[address] [place], [place] [address]Dr. Abiel Clement ALT [Catalytic activity/Vol] 17 U/L Normal 14-59 [facility] Comment on above: Performed By: #### C MP, BNP ####[facility] Wpsuqnuztz18[address] [place], [place] [address]Dr. Abiel Clement Anion gap [Moles/Vol] 13.9 mmol/L Normal [facility] Comment on above: Performed By: #### C MP, BNP ####[facility] Ghrfkvhsce199[address] [place], [place] [address]Dr. Abiel Clement AST [Catalytic activity/Vol] 26 U/L Normal 15-37 [facility] Comment on above: Performed By: #### C MP, BNP ####[facility] Sputgqhtlc6839[address] [place], [place] [address]Dr. Abeil Clement Bilirubin [Mass/Vol] 0.5 mg/dL Normal 0.2-1.0 [facility] Comment on above: Performed By: #### C MP, BNP ####[facility] Djoszhpcmo92[address] [place], [place] [address]Dr. Abiel Clement Calcium [Mass/Vol] 8.3 mg/dL Critically low 8.5-10.1 [facility] Comment on above: Performed By: #### C MP, BNP ####[facility] Aoukgxfyrl9[address] [place], [place] [address]Dr. Abiel Clement Chloride [Moles/Vol] 99 mmol/L Normal 98-107 [facility] Comment on above: Performed By: #### C MP, BNP ####[facility] Xwyqfhcfyt[address] [place], [place] [address]Dr. Abiel Clement CO2 [Moles/Vol] 23.4 mmol/L Normal 21.0-32.0 [facility] Comment on above: Performed By: #### C MP, BNP ####[facility] Ildlswjmap[address] [place], [place] [address]Dr. Abiel Clement Creatinine [Mass/Vol] 1.19 mg/dL Critically high 0.55-1.02 [facility] Comment on above: Performed By: #### C MP, BNP ####[facility] Qdmeurgnne27[address] [place] [address]Dr. Abiel Clement EGFR-AF ALBANIAN 56 mL/min/1.73m2 Critically low >=60 [facility] Comment on above: Performed By: #### C MP, BNP ####[facility] Zvbiskwyls[address] [place], [place] [address]Dr. Abiel Clement EGFR-NON AF ALBANIAN 46 mL/min/1.73m2 Critically low >=60 [facility] Comment on above: Performed By: #### C MP, BNP ####[facility] Mtkdvxphkj19[address] [place], [place] [address]Dr. Abiel Clement Globulin (S) [Mass/Vol] 3.7 g/dL Normal [facility] Comment on above: Performed By: #### C MP, BNP ####[facility] Heuvpkerjc[address] [place], [place] [address]Dr. Abiel Clement Glucose [Mass/Vol] 447 mg/dL Critically high 74-106 [facility] Comment on above: Performed By: #### C MP, BNP ####[facility] Ftrohblzqo67[address] [place], [place] [address]Dr. Abiel Clement Potassium [Moles/Vol] 5.3 mmol/L Critically high 3.5-5.1 [facility] Comment on above: Performed By: #### C MP, BNP ####[facility] Cnbtygekbe[address] [place], [place] [address]Dr. Abiel Clement Protein [Mass/Vol] 6.1 g/dL Critically low 6.4-8.2 [facility] Comment on above: Performed By: #### C MP, BNP ####[facility] Ecgceagmzh[address] [place], [place] [address]Dr. Abiel Clement Sodium [Moles/Vol] 131 mmol/L Critically low 136-145 [facility] Comment on above: Performed By: #### C MP, BNP ####[facility] Dmafyotyru[address] [place], [place] [address]Dr. Abiel Clement Urea nitrogen [Mass/Vol] 36.0 mg/dL Critically high 7.0-18.0 [facility] Comment on above: Performed By: #### C MP, BNP ####[facility] Xokdclibgk8634 [place] [id number]. Abiel Clement Urea nitrogen/Creatinine [Mass ratio] 30.3 mg/mg Normal [facility] Comment on above: Performed By: #### C MP, BNP ####[facility] Arbgzcwpux8095 [place] [id number]. Suyapaviviana Urbano Albumin [Mass/Vol] 3.1 g/dL Critically low 3.4-5.0 [facility] Comment on above: Performed By: #### B PAPER MAKING MACHINE OPERATOR, CMP ####[facility] Pcjfciozlv8392 [place] [address]Dr. Abiel Clement Albumin/Globulin [Mass ratio] 0.7 {ratio} Normal [facility] Comment on above: Performed By: #### B PAPER MAKING MACHINE OPERATOR, CMP ####[facility] Khpdrnayzm[address] [place], [place] [address]Dr. Abiel Clement ALP [Catalytic activity/Vol] 161 U/L Critically high 46-116 [facility] Comment on above: Performed By: #### B PAPER MAKING MACHINE OPERATOR, CMP ####[facility] Clfdffodsc[address] [place], [place] [address]Dr. Abiel Urbano ALT [Catalytic activity/Vol] 22 U/L Normal 14-59 [facility] Comment on above: Performed By: #### B PAPER MAKING MACHINE OPERATOR, CMP ####[facility] Kibpfzqiqf99[address] [place] [id number]. Abiel Clement Anion gap [Moles/Vol] 13.5 mmol/L Normal [facility] Comment on above: Performed By: #### B PAPER MAKING MACHINE OPERATOR, CMP ####[facility] Zhheubjhoj5[address] [place] [id number]. Suyapaviviana Urbano AST [Catalytic activity/Vol] 41 U/L Critically high 15-37 [facility] Comment on above: Performed By: #### B PAPER MAKING MACHINE OPERATOR, CMP ####[facility] Hvdoafcxut0746 [place] [address]Dr. Abiel Clement Bilirubin [Mass/Vol] 0.5 mg/dL Normal 0.2-1.0 [facility] Comment on above: Performed By: #### B PAPER MAKING MACHINE OPERATOR, CMP ####[facility] Dauzueetaa5453 [place] [id number]. Abiel Clement Calcium [Mass/Vol] 9.4 mg/dL Normal 8.5-10.1 [facility] Comment on above: Performed By: #### B PAPER MAKING MACHINE OPERATOR, CMP ####[facility] Quskqgehxb8164 [place] [id number]. Abiel Clement Chloride [Moles/Vol] 98 mmol/L Normal 98-107 [facility] Comment on above: Performed By: #### B PAPER MAKING MACHINE OPERATOR, CMP ####[facility] Xoauerxrlx7043 [place] [id number]. Abiel Clement CO2 [Moles/Vol] 27.0 mmol/L Normal 21.0-32.0 [facility] Comment on above: Performed By: #### B PAPER MAKING MACHINE OPERATOR, CMP ####[facility] Iqpsenmhgc[address] [place], [place] [address]Dr. Abiel Clement Creatinine [Mass/Vol] 1.08 mg/dL Critically high 0.55-1.02 [facility] Comment on above: Performed By: #### B PAPER MAKING MACHINE OPERATOR, CMP ####[facility] [address]fbpyysvvs[address] [place], [place] [address]Dr. Abiel Clement EGFR-AF ALBANIAN >60 Normal >=60 [facility] Comment on above: Performed By: #### B PAPER MAKING MACHINE OPERATOR, CMP ####[facility] Ljurnjzqqg[address] [place], [place] [address]Dr. Abiel Clement EGFR-NON AF ALBANIAN 51 mL/min/1.73m2 Critically low >=60 [facility] Comment on above: Performed By: #### B PAPER MAKING MACHINE OPERATOR, CMP ####[facility] Sgftuzzgfy6780 [place] [id number]. Abiel Clement Globulin (S) [Mass/Vol] 4.2 g/dL Normal [facility] Comment on above: Performed By: #### B PAPER MAKING MACHINE OPERATOR, CMP ####[facility] Cvbivrnplt2718 [place] [address]Dr. Abiel Urbano Glucose [Mass/Vol] 173 mg/dL Critically high 74-106 [facility] [place] [facility] Comment on above: Performed By: #### B PAPER MAKING MACHINE OPERATOR, CMP ####[facility] Cfijaebcjx2086 [place] [address]Dr. Abiel Clement Potassium [Moles/Vol] 4.5 mmol/L Normal 3.5-5.1 [facility] Comment on above: Performed By: #### B PAPER MAKING MACHINE OPERATOR, CMP ####[facility] Hcpilgvmea6825 [place] [address]Dr. Abiel Clement Protein [Mass/Vol] 7.3 g/dL Normal 6.4-8.2 [facility] Comment on above: Performed By: #### B PAPER MAKING MACHINE OPERATOR, CMP ####[facility] Bhlltaavvv1682 [place] [address]Dr. Abiel Clement Sodium [Moles/Vol] 134 mmol/L Critically low 136-145 [facility] Comment on above: Performed By: #### B PAPER MAKING MACHINE OPERATOR, CMP ####[facility] Szpnojrwyt[address] [place], [place] [address]Dr. Abiel Clement Urea nitrogen [Mass/Vol] 37.0 mg/dL Critically high 7.0-18.0 [facility] Comment on above: Performed By: #### B PAPER MAKING MACHINE OPERATOR, CMP ####[facility] Vjqgokcsid99[address] [place], [place] [address]Dr. Abiel Clement Urea nitrogen/Creatinine [Mass ratio] 34.3 mg/mg Normal [facility] Comment on above: Performed By: #### B PAPER MAKING MACHINE OPERATOR, CMP ####[facility] Qfkrdvfyzo67[address] [place], [place] [address]Dr. Abiel Clement XR ANKLE RT MIN 3 VIEWSon XR ANKLE RT MIN 3 VIEWS Normal [facility] XR CHEST 1 Von 03-13-2022 XR CHEST 1 V Normal [facility] XR FOOT RT MIN 3 VIEWSon XR FOOT RT MIN 3 VIEWS Normal [facility] CBC AUTO DIFFon 03-12-2022 BASO # 0.1 103/ul Normal 0.0-0.1 [facility] Comment on above: Performed By: #### C BC ####[facility] Yhxebtckck[address] [place], [place] [address]Dr. Abiel Clement Basophils/100 WBC (Bld) 0.7 % Normal 0.2-2.0 [facility] Comment on above: Performed By: #### C BC ####[facility] Zofqszcctc[address] [place] [address]Dr. Abiel Clement EO # 0.2 103/ul Normal 0.0-0.7 [facility] Comment on above: Performed By: #### C BC ####[facility] Wrnyldhzhc[address] [place], [place] [address]Dr. Abiel Clement Eosinophils/100 WBC (Bld) 2.1 % Normal 0.9-7.0 [facility] Comment on above: Performed By: #### C BC ####[facility] Ecxsxcflel70[address] [place], [place] [address]Dr. Abiel Clement Erythrocyte distribution width (RBC) [Ratio] 13.1 % Normal 11.0-15.0 [facility] Comment on above: Performed By: #### C BC ####[facility] Jzxovlnjvr022[address] [place], [place] [address]Dr. Abiel Clement Hematocrit (Bld) [Volume fraction] 33.9 % Critically low 36.0-48.0 [facility] Comment on above: Performed By: #### C BC ####[facility] Dngmrhyxkh[address] [place], [place] [address]Dr. Abiel Clement Hemoglobin (Bld) [Mass/Vol] 11.0 g/dL Critically low 12.0-16.0 [facility] Comment on above: Performed By: #### C BC ####[facility] Rraazcuyhz[address] [place], [place] [address]Dr. Abiel Clement IG # 0.04 10e3/ul Critically high 0.00-0.03 [facility] Comment on above: Performed By: #### C BC ####[facility] [address]qouqmytk[address] [place], [place] [address]Dr. Abiel Clement IG % 0.4 % Normal 0.0-0.5 [facility] Comment on above: Performed By: #### C BC ####[facility] Qzenxcqmwn8504 [place] [id number]. Suyapaviviana Clement LYMPH # 2.0 103/ul Normal 1.2-3.8 [facility] Comment on above: Performed By: #### C BC ####[facility] Ncbkqyibmh0992 [place] [id number]. Suyapaviviana Clement Lymphocytes/100 WBC (Bld) 20.0 % Critically low 20.5-60.0 [facility] Comment on above: Performed By: #### C BC ####[facility] [address]uvtnlke[address] [place] [address]Dr. Suyapaviviana Clement MANUAL DIFF REQ NO Normal [facility] Comment on above: Performed By: #### C BC ####[facility] Qhxpgntmpq7460 [place] [address]Dr. Suyapaviviana Clement MCH (RBC) [Entitic mass] 29.5 pg Normal 26.7-34.0 [facility] Comment on above: Performed By: #### C BC ####[facility] [address]saubtcwvw[address] [place], [place] [address]Dr. Suyapaviviana Clement MCHC (RBC) [Mass/Vol] 32.4 g/dL Normal 29.9-35.2 [facility] Comment on above: Performed By: #### C BC ####[facility] Ulzgwcnflu3[address] [place] [address]Dr. Abiel Clement MCV (RBC) [Entitic vol] 90.9 fL Normal 81.0-99.0 [facility] Comment on above: Performed By: #### C BC ####[facility] Austfafwgj75[address] [place] [id number]. Abiel Clement MONO # 1.0 103/ul Critically high 0.3-0.8 [facility] Comment on above: Performed By: #### C BC ####[facility] Dxxncbqlif9[address] [place] [address]Dr. Abiel Clement Monocytes/100 WBC (Bld) 10.3 % Normal 1.7-12.0 [facility] Comment on above: Performed By: #### C BC ####[facility] Lxuhuylwyz5154 [place] [id number]. Abiel Clement NEUT # 6.5 103/ul Normal 1.4-6.5 [facility] Comment on above: Performed By: #### C BC ####[facility] Hzhyyifycu2856 [place] [id number]. Abiel Clement Neutrophils/100 WBC (Bld) 66.5 % Normal 43.0-75.0 [facility] Comment on above: Performed By: #### C BC ####[facility] Wnxiwupmcw3338 [place] [id number]. Abiel Clement Platelet mean volume (Bld) [Entitic vol] 10.8 fL Normal 9.5-13.5 [facility] Comment on above: Performed By: #### C BC ####[facility] Dwvylrrieh86[address] [place] [id number]. Abiel Urbano PLT 278 103/ul Normal 150-450 [facility] Comment on above: Performed By: #### C BC ####[facility] Rzcffevpjw5782 [place] [id number]. Abiel Clement RBC 3.73 106/ul Critically low 4.20-5.40 [facility] Comment on above: Performed By: #### C BC ####[facility] Tfodeimzwi[address] [place] [id number]. Abiel Clement WBC 9.7 103/ul Normal 4.0-11.0 [facility] Comment on above: Performed By: #### C BC ####[facility] Vhbrvqpdrw4667 [place] [id number]. Suyapaviviana lCement PROF CHEM 8 (BAS METB)on Anion gap [Moles/Vol] 11.5 mmol/L Normal [facility] Comment on above: Performed By: #### B MP ####[facility] Nafurqwxjx1271 [place] [id number]. Suyapaviviana Clement Calcium [Mass/Vol] 8.9 mg/dL Normal 8.5-10.1 [facility] Comment on above: Performed By: #### B MP ####[facility] Xlbeovrddy9669 [place] [id number]. Abiel Clement Chloride [Moles/Vol] 102 mmol/L Normal 98-107 [facility] Comment on above: Performed By: #### B MP ####[facility] Blxxokohis[address] [place] [address]Dr. Abiel Clement CO2 [Moles/Vol] 28.4 mmol/L Normal 21.0-32.0 [facility] Comment on above: Performed By: #### B MP ####[facility] Cpgldchfki9937 [place] [address]Dr. Abiel Clement Creatinine [Mass/Vol] 1.10 mg/dL Critically high 0.55-1.02 [facility] Comment on above: Performed By: #### B MP ####[facility] Ostaccasaj[address] [place] [address]Dr. Suyapaviviana Urbano EGFR-AF ALBANIAN >60 Normal >=60 [facility] Comment on above: Performed By: #### B MP ####[facility] Oxbinefwil[address] [place] [address]Dr. Abiel Urbano EGFR-NON AF ALBANIAN 50 mL/min/1.73m2 Critically low >=60 [facility] Comment on above: Performed By: #### B MP ####[facility] Hfsvopmxlx79[address] [place] [address]Dr. Abiel Clement Glucose [Mass/Vol] 106 mg/dL Normal 74-106 [facility] Comment on above: Performed By: #### B MP ####[facility] Bygxjlopah8[address] [place] [address]Dr. Abiel Clement Potassium [Moles/Vol] 3.9 mmol/L Normal 3.5-5.1 [facility] Comment on above: Performed By: #### B MP ####[facility] Twstgdcvpt7040 [place] [address]Dr. Suyapaviviana Clement Sodium [Moles/Vol] 138 mmol/L Normal 136-145 [facility] Comment on above: Performed By: #### B MP ####[facility] [address] [place], [place] [address]Dr. Abiel Clement Urea nitrogen [Mass/Vol] 38.0 mg/dL Critically high 7.0-18.0 [facility] Comment on above: Performed By: #### B MP ####[facility] Qkryclsuls2494 [place] [address]Dr. Abiel Clement Urea nitrogen/Creatinine [Mass ratio] 34.5 mg/mg Normal [facility] Comment on above: Performed By: #### B MP ####[facility] Scsnjqpoka[address] [place], [place] [address]Dr. Abiel Clement XR FOOT LT MIN 3 VIEWSon XR FOOT LT MIN 3 VIEWS Normal [facility] POINT OF CARE GLUCOSEon Glucose [Mass/Vol] 389 mg/dL Critically high 74-106 [facility] [place] [facility] Comment on above: Performed By: #### P OCGLUC ####[facility] [address]xjjvqbxbx[address] [place], [place] [address]Dr. Abiel Clement Glucose [Mass/Vol] 414 mg/dL Critically high 74-106 [facility] [place] [facility] Comment on above: Performed By: #### P OCGLUC ####[facility] Ggoljxjntq[address] [place], [place] [address]Dr. Abiel Clement Glucose [Mass/Vol] 295 mg/dL Critically high [facility]106 [facility] [place] [facility] Comment on above: Performed By: #### P OCGLUC ####[facility] [address]xunsjdhx[address] [place], [place] [address]Dr. Abiel Clement Glucose [Mass/Vol] 323 mg/dL Critically high -106 [facility] [place] [facility] Comment on above: Performed By: #### P OCGLUC ####[facility] Scvxjtrjol[address] [place], [place] [address]Dr. Abiel Clement Covid-19 PCR ([facility]on SARS-CoV-2 (COVID-19) RNA CLARIBEL+probe Ql (Unsp spec) Not detected Normal NOT DETECTED [facility] Comment on above: Result Comment: When [...] for this test is supported by the [place] of Health and Human Service's declaration that [...] longer be used). Performed By: #### [facility] ####[facility] Fzayctudcm[address] [place], [place] [address]Dr. Suyapaviviana Clement CBC AUTO DIFFon 03-01-2022 BASO # 0.1 103/ul Normal 0.0-0.1 [facility] Comment on above: Performed By: #### C BC ####[facility] Fvfkwbqwrr[address] [place], [place] [address]Dr. Suyapaviviana Clement Basophils/100 WBC (Bld) 0.7 % Normal 0.2-2.0 [facility] Comment on above: Performed By: #### C BC ####[facility] Ijxevcx[address] [place], [place] [address]Dr. Abiel Clement EO # 0.2 103/ul Normal 0.0-0.7 [facility] Comment on above: Performed By: #### C BC ####[facility] Cjpqotgasj924[address] [place], [place] [address]Dr. Abiel Clement Eosinophils/100 WBC (Bld) 2.6 % Normal 0.9-7.0 [facility] Comment on above: Performed By: #### C BC ####[facility] Qdejphhykn11[address] [place], [place] [address]Dr. Abiel Clement Erythrocyte distribution width (RBC) [Ratio] 13.2 % Normal 11.0-15.0 [facility] Comment on above: Performed By: #### C BC ####[facility] [address]yvqrxiw20[address] [place] [address]Dr. Abiel Clement Hematocrit (Bld) [Volume fraction] 42.4 % Normal 36.0-48.0 [facility] Comment on above: Performed By: #### C BC ####[facility] [address]udfacqkim[address] [place] [address]Dr. Abiel Clement Hemoglobin (Bld) [Mass/Vol] 13.9 g/dL Normal 12.0-16.0 [facility] Comment on above: Performed By: #### C BC ####[facility] Sf[address]kepmqo96[address] [place], [place] [address]Dr. Abiel Clement IG # 0.02 10e3/ul Normal 0.00-0.03 [facility] Comment on above: Performed By: #### C BC ####[facility] Gtjmnlbxfr[address] [place], [place] [address]Dr. Abiel Clement IG % 0.3 % Normal 0.0-0.5 [facility] Comment on above: Performed By: #### C BC ####[facility] Zgtnbaqpac[address] [place], [place] [address]Dr. Abiel Clement LYMPH # 1.8 103/ul Normal 1.2-3.8 [facility] Comment on above: Performed By: #### C BC ####[facility] Lronfyyadu[address] [place], [place] [address]Dr. Abiel Clement Lymphocytes/100 WBC (Bld) 24.1 % Normal 20.5-60.0 [facility] Comment on above: Performed By: #### C BC ####[facility] Niiiebsfbe[address] [place], [place] [address]Dr. Abiel Clement MANUAL DIFF REQ NO Normal [facility] Comment on above: Performed By: #### C BC ####[facility] [address]rdjvmbi[address] [place], [place] [address]Dr. Abiel Clement MCH (RBC) [Entitic mass] 29.4 pg Normal 26.7-34.0 [facility] Comment on above: Performed By: #### C BC ####[facility] [address]spcrvjy19[address] [place] [id number]. Abiel Clement MCHC (RBC) [Mass/Vol] 32.8 g/dL Normal 29.9-35.2 [facility] Comment on above: Performed By: #### C BC ####[facility] Enrbxcgmve4315 [place] [id number]. Abiel Clement MCV (RBC) [Entitic vol] 89.8 fL Normal 81.0-99.0 [facility] Comment on above: Performed By: #### C BC ####[facility] Txyvhalgij[address] [place] [id number]. Abiel Clement MONO # 0.7 103/ul Normal 0.3-0.8 [facility] Comment on above: Performed By: #### C BC ####[facility] Hxgditxoei34[address] [place] [id number]. Suyapaviviana Clement Monocytes/100 WBC (Bld) 9.2 % Normal 1.7-12.0 [facility] Comment on above: Performed By: #### C BC ####[facility] Etwzzbcinp[address] [place] [id number]. Abiel Clement NEUT # 4.6 103/ul Normal 1.4-6.5 [facility] Comment on above: Performed By: #### C BC ####[facility] Vrnjztphio3[address] [place] [id number]. Abiel Urbano Neutrophils/100 WBC (Bld) 63.1 % Normal 43.0-75.0 [facility] Comment on above: Performed By: #### C BC ####[facility] Umjuyjxdmx37[address] [place] [id number]. Abiel Clement Platelet mean volume (Bld) [Entitic vol] 11.4 fL Normal 9.5-13.5 [facility] Comment on above: Performed By: #### C BC ####[facility] [address]axusgqjl3674 [place] [id number]. Abiel Urbano PLT 309 103/ul Normal 150-450 [facility] Comment on above: Performed By: #### C BC ####[facility] [address]iwdwjde[address] [place] [id number]. Suyapaviviana Urbano RBC 4.72 106/ul Normal 4.20-5.40 [facility] Comment on above: Performed By: #### C BC ####[facility] [address]ijlwlethg[address] [place] [address]Dr. Suyapaviviana Urbano WBC 7.3 103/ul Normal 4.0-11.0 [facility] Comment on above: Performed By: #### C BC ####[facility] Lbcxibkwad[address] [place] [address]Dr. Abiel Clement PROF CHEM 8 (BAS METB)on Anion gap [Moles/Vol] 12.2 mmol/L Normal [facility] Comment on above: Performed By: #### B MP ####[facility] Latqxbbpmj4[address] [place] [address]Dr. Abiel Clement Calcium [Mass/Vol] 9.2 mg/dL Normal 8.5-10.1 [facility] Comment on above: Performed By: #### B MP ####[facility] Jdpwpymqka8543 [place] [address]Dr. Abiel Clement Chloride [Moles/Vol] 102 mmol/L Normal 98-107 [facility] Comment on above: Performed By: #### B MP ####[facility] Zbkmltrlrb4227 [place] [address]Dr. Abiel Clement CO2 [Moles/Vol] 26.9 mmol/L Normal 21.0-32.0 [facility] Comment on above: Performed By: #### B MP ####[facility] Vdcufgwrsn6[address] [place] [address]Dr. Abiel Clement Creatinine [Mass/Vol] 0.99 mg/dL Normal 0.55-1.02 [facility] Comment on above: Performed By: #### B MP ####[facility] [address]epcyivbbe49[address] [place] [address]Dr. Abiel Clement EGFR-AF ALBANIAN >=60 Normal >=60 [facility] Comment on above: Performed By: #### B MP ####[facility] Mnnhzhwdht34[address] [place] [id number]. Abiel Urbano EGFR-NON AF ALBANIAN 57 mL/min/1.73m2 Critically low >=60 [facility] Comment on above: Performed By: #### B MP ####[facility] Iepjzbvhdd0925 [place] [id number]. Suaypaviviana Urbano Glucose [Mass/Vol] 103 mg/dL Normal 74-106 [facility] Comment on above: Performed By: #### B MP ####[facility] T[address]apxoub56[address] [place] [id number]. Abiel Clement Potassium [Moles/Vol] 4.1 mmol/L Normal 3.5-5.1 [facility] Comment on above: Performed By: #### B MP ####[facility] Fnkebggqmm1834 [place] [address]Dr. Abiel Clement Sodium [Moles/Vol] 137 mmol/L Normal 136-145 [facility] Comment on above: Performed By: #### B MP ####[facility] Pjxkjhsbsa5938 [place] [id number]. Abiel Clement Urea nitrogen [Mass/Vol] 27.0 mg/dL Critically high 7.0-18.0 [facility] Comment on above: Performed By: #### B MP ####[facility] Stbzvwhmsy2473 [place] [id number]. Abiel Clement Urea nitrogen/Creatinine [Mass ratio] 27.3 mg/mg Normal [facility] Comment on above: Performed By: #### B MP ####[facility] Fvnivuafta1334 [place] [id number]. Abiel Clement PROTIMEon 03-01-2022 INR Coag (PPP) [Relative time] 0.97 {INR} Normal [facility] Comment on above: Performed By: #### P TT, PT ####[facility] Oqokjrupiv85[address] [place] [id number]. Abiel Clement INR GUIDELINES SEE BELOW Normal [facility] Comment on above: Result Comment: GELY RED INR: 2.0 - 3.0 CONDITIONS NOT LISTED BELOW 2.5 - 3.5 FOR PROSTHETIC HEART VALVE REPLACEMENT 2.5 - 3.5 RECURRENT THROMBOSIS Performed By: #### P TT, PT ####[facility] [address]yniwxmyjj[address] [place] [address]Dr. Abiel Urbano PT Coag (PPP) [Time] 10.5 s Normal 9.0-11.6 [facility] Comment on above: Performed By: #### P TT, PT ####[facility] Mgemsijswe[address] [place] [address]Dr. Abiel Clement PTTon 03-01-2022 aPTT Coag (Bld) [Time] 24.8 s Normal 22.3-36.2 [facility] Comment on above: Performed By: #### P TT, PT ####[facility] Vejgrwqtgn[address] [place], [place] [address]Dr. Abiel Clement US CAROTID ART BILon 022 US CAROTID ART VIC Normal [facility] XR FOOT VIC MIN 3 VIEWSon XR FOOT VIC MIN 3 VIEWS Normal [facility] AMYLASEon 11-03-2021 Amylase [Catalytic activity/Vol] 66 U/L Normal 31-110 [facility] Comment on above: Performed By: #### C MPBENNY LIPA ####[facility] [address]fbdjopajx[address] [place], [place] [address]Dr. Abiel Clement CBC AUTO DIFFon 11-03-2021 BASO # 0.1 103/ul Normal 0.0-0.1 [facility] Comment on above: Performed By: #### C BC ####[facility] Warsozotdd[address] [place], [place] [address]Dr. Abiel Clement Basophils/100 WBC (Bld) 1.1 % Normal 0.2-2.0 [facility] Comment on above: Performed By: #### C BC ####[facility] Iobcvfaujo[address] [place], [place] [address]Dr. Abiel Clement EO # 0.1 103/ul Normal 0.0-0.7 [facility] Comment on above: Performed By: #### C BC ####[facility] Mwzqnnacyf4946 [place] [address]Dr. Abiel Clement Eosinophils/100 WBC (Bld) 2.5 % Normal 0.9-7.0 [facility] Comment on above: Performed By: #### C BC ####[facility] Jyguxxwzpu01[address] [place], [place] [address]Dr. Abiel Clement Erythrocyte distribution width (RBC) [Ratio] 14.6 % Normal 11.0-15.0 [facility] Comment on above: Performed By: #### C BC ####[facility] Wifdjjzdrq[address] [place], [place] [address]Dr. Abiel Clement Hematocrit (Bld) [Volume fraction] 47.4 % Normal 36.0-48.0 [facility] Comment on above: Performed By: #### C BC ####[facility] Gegdjqaxub[address] [place], [place] [address]Dr. Abiel Clement Hemoglobin (Bld) [Mass/Vol] 15.4 g/dL Normal 12.0-16.0 [facility] Comment on above: Performed By: #### C BC ####[facility] Vkayuvuybo[address] [place], [place] [address]Dr. Abiel Clement IG # 0.01 10e3/ul Normal 0.00-0.03 [facility] Comment on above: Performed By: #### C BC ####[facility] Kxmtctrbvy[address] [place], [place] [address]Dr. Abiel Clement IG % 0.2 % Normal 0.0-0.5 [facility] Comment on above: Performed By: #### C BC ####[facility] Nkibbdkpon8[address] [place], [place] [address]Dr. Abiel Clement LYMPH # 1.6 103/ul Normal 1.2-3.8 [facility] Comment on above: Performed By: #### C BC ####[facility] Uhcnqeegeu29[address] [place], [place] [address]Dr. Abiel Clement Lymphocytes/100 WBC (Bld) 27.3 % Normal 20.5-60.0 [facility] Comment on above: Performed By: #### C BC ####[facility] Hbwgamnvps6868 [place] [id number]. Abiel Clement MANUAL DIFF REQ NO Normal [facility] Comment on above: Performed By: #### C BC ####[facility] Ckonryjjux9819 [place] [id number]. Abiel Clement MCH (RBC) [Entitic mass] 28.1 pg Normal 26.7-34.0 [facility] Comment on above: Performed By: #### C BC ####[facility] Zoeofgfgtw8177 [place] [address]Dr. Abiel Clement MCHC (RBC) [Mass/Vol] 32.5 g/dL Normal 29.9-35.2 [facility] Comment on above: Performed By: #### C BC ####[facility] Qsfbqczqct0539 [place] [address]Dr. Abiel Urbano MCV (RBC) [Entitic vol] 86.5 fL Normal 81.0-99.0 [facility] Comment on above: Performed By: #### C BC ####[facility] Ilmpwtxpmt[address] [place], [place] [address]Dr. Abiel Urbano MONO # 0.5 103/ul Normal 0.3-0.8 [facility] Comment on above: Performed By: #### C BC ####[facility] [address]sksqfgcgn8[address] [place], [place] [address]Dr. Suyapaviviana Clement Monocytes/100 WBC (Bld) 8.5 % Normal 1.7-12.0 [facility] Comment on above: Performed By: #### C BC ####[facility] Plfalvxhze44[address] [place], [place] [address]Dr. Abiel Clement NEUT # 3.4 103/ul Normal 1.4-6.5 [facility] Comment on above: Performed By: #### C BC ####[facility] Zdyajzpdpe[address] [place], [place] [address]Dr. Suyapaviviana Clement Neutrophils/100 WBC (Bld) 60.4 % Normal 43.0-75.0 [facility] Comment on above: Performed By: #### C BC ####[facility] Ktcgqsirtn9206 [place] [address]Dr. Abiel Clement Platelet mean volume (Bld) [Entitic vol] 11.6 fL Normal 9.5-13.5 [facility] Comment on above: Performed By: #### C BC ####[facility] Qgwpovoppq2171 [place] [address]Dr. Abiel Clement PLT 257 103/ul Normal 150-450 [facility] Comment on above: Performed By: #### C BC ####[facility] Mjlcmnefee5836 [place] [address]Dr. Abiel Clement RBC 5.48 106/ul Critically high 4.20-5.40 [facility] Comment on above: Performed By: #### C BC ####[facility] Zdpqqjyglo[address] [place], [place] [address]Dr. Abiel Urbano WBC 5.7 103/ul Normal 4.0-11.0 [facility] Comment on above: Performed By: #### C BC ####[facility] Hqaxhtwxnw[address] [place], [place] [address]Dr. Suyapaviviana Clement LIPASEon 11-03-2021 Lipase [Catalytic activity/Vol] 32.0 U/L Normal 23.0-300.0 [facility] Comment on above: Performed By: #### C BENNY PEDERSEN, LIPA ####[facility] Gijidagpjx80[address] [place] [address]Dr. Abiel Clement PROF 14(COMP METB)on 022 Albumin [Mass/Vol] 3.6 g/dL Normal 3.5-5.0 [facility] Comment on above: Performed By: #### C SLAVA BENNY, LIPA ####[facility] Nzsiiyeibs19[address] [place] [address]Dr. Abiel Clement Albumin/Globulin [Mass ratio] 0.8 {ratio} Normal [facility] Comment on above: Performed By: #### C SLAVA BENNY, LIPA ####[facility] Tzhmhuiajs0132 [place] [address]Dr. Abiel Clement ALP [Catalytic activity/Vol] 325 U/L Critically high 38-126 [facility] Comment on above: Performed By: #### C MP, BENNY, LIPA ####[facility] Lwnxdgapav0168 [place] [address]Dr. Abiel Clement ALT [Catalytic activity/Vol] 103 U/L Critically high 9-52 [facility] Comment on above: Performed By: #### C MP, BENNY, LIPA ####[facility] Cwjxlcjhac5163 [place] [address]Dr. Abiel Clement Anion gap [Moles/Vol] 13.1 mmol/L Normal [facility] Comment on above: Performed By: #### C MP, BENNY, LIPA ####[facility] Femwsbimjn2992 [place] [address]Dr. Abiel Clement AST [Catalytic activity/Vol] 78 U/L Critically high 14-36 [facility] Comment on above: Performed By: #### C MP BENNY, LIPA ####[facility] Ouspeuexgy[address] [place], [place] [address]Dr. Abiel Clement Bilirubin [Mass/Vol] 0.4 mg/dL Normal 0.2-1.3 [facility] Comment on above: Performed By: #### C MP, BENNY, LIPA ####[facility] [address]knjisvlyg[address] [place], [place] [address]Dr. Abiel Clement Calcium [Mass/Vol] 9.6 mg/dL Normal 8.4-10.2 [facility] Comment on above: Performed By: #### C MP, BENNY, LIPA ####[facility] Lsxwwvjpvo[address] [place], [place] [address]Dr. Abiel Clement Chloride [Moles/Vol] 102 mmol/L Normal 98-107 [facility] Comment on above: Performed By: #### C MP, BENNY, LIPA ####[facility] Jblabzksru[address] [place], [place] [address]Dr. Abiel Clement CO2 [Moles/Vol] 21.5 mmol/L Critically low 22.0-30.0 [facility] Comment on above: Performed By: #### C MP, BENNY, LIPA ####[facility] Xvfgpmizyx7064 [place] [address]Dr. Abiel Clement Creatinine [Mass/Vol] 1.51 mg/dL Critically high 0.52-1.04 [facility] Comment on above: Performed By: #### C MP, BENNY, LIPA ####[facility] Raqbrfskak49[address] [place] [address]Dr. Abiel Clement EGFR-AF ALBANIAN 42 mL/min/1.73m2 Critically low >=60 [facility] Comment on above: Performed By: #### C MP, BENNY, LIPA ####[facility] Drrnryjpty0609 [place] [address]Dr. Abiel Clement EGFR-NON AF ALBANIAN 35 mL/min/1.73m2 Critically low >=60 [facility] Comment on above: Performed By: #### C MP, BENNY, LIPA ####[facility] Ryqzzuqaha03[address] [place] [address]Dr. Abiel Clement Globulin (S) [Mass/Vol] 4.5 g/dL Normal [facility] Comment on above: Performed By: #### C MP, BENNY, LIPA ####[facility] Ywvudipiko[address] [place], [place] [address]Dr. Abiel Clement Glucose [Mass/Vol] 167 mg/dL Critically high 74-106 [facility] Comment on above: Performed By: #### C MP, BENNY, LIPA ####[facility] Hfumwiymzv[address] [place], [place] [address]Dr. Abiel Clement Potassium [Moles/Vol] 4.6 mmol/L Normal 3.4-5.0 [facility] Comment on above: Performed By: #### C MP, BENNY, LIPA ####[facility] Epqilivysx22[address] [place], [place] [address]Dr. Abiel Clement Protein [Mass/Vol] 8.1 g/dL Normal 6.1-8.2 [facility] Comment on above: Performed By: #### C MP, BENNY, LIPA ####[facility] Tsclbiwjxu[address] [place], [place] [address]Dr. Abiel Clement Sodium [Moles/Vol] 132 mmol/L Critically low 137-145 [facility] Comment on above: Performed By: #### C BENNY PEDERSEN LIPA ####[facility] Xbjxvyyiow8325 [place] [id number]. Abiel Clement Urea nitrogen [Mass/Vol] 35.0 mg/dL Critically high 7.0-17.0 [facility] Comment on above: Performed By: #### C BENNY PEDERSEN LIPA ####[facility] Imwmidusax9259 [place], [place] [address]Kk. Abiel Clement Urea nitrogen/Creatinine [Mass ratio] 23.2 mg/mg Normal [facility] Comment on above: Performed By: #### C BENNY PEDERSEN LIPA ####[facility] Lokcgrmeuc[address] [place] [id number]. Abiel Clement XR ABD FLAT UP_PA Tl 11-03 XR ABD FLAT UP_PA CH Normal [facility] XR FOOT LT MIN 3 VIEWSon XR FOOT LT MIN 3 VIEWS Normal [facility] COMPREHENSIVE METABOLIC PANE Neftali 09-23-2021 Albumin [Mass/Vol] 4.1 g/dL Normal 3.6-5.1 [facility] Comment on above: Performed By: #### 1 023, 2210 #### [facility] [place] [address] [employer] Supervisor: Christian Dove MD Albumin/Globulin [Mass ratio] 1.2 {ratio} Normal 1.0-2.5 [facility] Comment on above: Performed By: #### 1 023, 0 #### [facility] [address] [employer] Supervisor: Christian Dove MD ALP [Catalytic activity/Vol] 206 U/L High 37-153 [facility] Comment on above: Performed By: #### 1 023, 7600 #### [facility] [address] [employer] Supervisor: Christian Dove MD ALT [Catalytic activity/Vol] 32 U/L High 6-29 [facility] Comment on above: Result Comment: NO C OLLECTION DATE RECEIVED. WE HAVE USED THE DATE THE SPECIMEN WAS RECEIVED BY THIS LABORATORY THE COLLECTION DATE. IF THIS IS INCORRECT, PLEASE CONTACT CLIENT SERVICES. PHONE NUMBER: [phone] Performed By: #### 1 0231, 7600 #### [facility] [place] [address] [employer] Supervisor: Christian Dove MD AST [Catalytic activity/Vol] 28 U/L Normal 10-35 [facility] Comment on above: Performed By: #### 1 0231, 7600 #### [facility] [place] [address] [employer] Supervisor: Christian Dove MD Bilirubin [Mass/Vol] 0.5 mg/dL Normal 0.2-1.2 [facility] Comment on above: Performed By: #### 1 0231, 7600 #### [facility] [place] [address] [employer] Supervisor: Christian Dove MD BUN/CREATININE RATIO NOT APPLICABLE Normal 6-22 [facility] Comment on above: Performed By: #### 1 0231, 7600 #### [facility] [place] [address] [employer] Supervisor: Christian Dove MD Calcium [Mass/Vol] 9.6 mg/dL Normal 8.6-10.4 [facility] Comment on above: Performed By: #### 1 0231, 7600 #### [facility] [place] [address] [employer] Supervisor: Christian Dove MD Chloride [Moles/Vol] 101 mmol/L Normal 98-110 [facility] Comment on above: Performed By: #### 1 0231, 7600 #### [facility] [place] [address] [employer] Supervisor: Christian Dove MD CO2 [Moles/Vol] 27 mmol/L Normal 20-32 [facility] Comment on above: Performed By: #### 1 0231, 7600 #### [facility] [place] [address] [employer] Supervisor: Christian Dove MD Creatinine [Mass/Vol] 0.88 mg/dL Normal 0.50-0.[address] [facility] [address] [facility] Comment on above: Result Comment: For patients >49 years of age, the reference limit for Creatinine is approximately 13% higher for people identified as -Romanian. Performed By: #### 1 230, 7600 #### [facility] [address], [address] [place] [address] [employer] Supervisor: Christian Dove MD eGFR NON-AFR. ALBANIAN 71 mL/min/1.73m2 Normal > OR = 60 [facility] Comment on above: Performed By: #### 1 230, 7600 #### [facility] [place] [address] [employer] Supervisor: Christian Dove MD GFR/1.73 sq M.predicted among blacks MDRD (S/P/Bld) [Vol rate/Area] 82 mL/min/{1.73_m2} Normal > OR = 60 [facility] Comment on above: Performed By: #### 1 230, 0 #### [facility] [place] [address] [employer] Supervisor: Christian Dove MD Globulin (S) [Mass/Vol] 3.3 g/dL Normal 1.9-3.7 [facility] Comment on above: Performed By: #### 1 230, 7600 #### [facility] [place] [address] [employer] Supervisor: Christian Dove MD Glucose [Mass/Vol] 269 mg/dL High 65-99 [facility] Comment on above: Result Comment: Fasting reference interval For someone without known diabetes, a glucose value >125 mg/dL indicates that they may have diabetes and this should be confirmed with a follow-up test. Performed By: #### 1 230, 7600 #### [facility] [address], [address] [place] [address] [employer] Supervisor: Christian Dove MD Potassium [Moles/Vol] 4.3 mmol/L Normal 3.5-5.[address] [facility] [address] [facility] Comment on above: Performed By: #### 1 0231, 7600 #### [facility] of [address], [address] [place] [address] [employer] Supervisor: Christian Dove MD Protein [Mass/Vol] 7.4 g/dL Normal 6.1-8.1 [facility] Comment on above: Performed By: #### 1 0231, 7600 #### [facility] of [place] [address] [employer] Supervisor: Christian Dove MD Sodium [Moles/Vol] 135 mmol/L Normal 135-146 [facility] Comment on above: Performed By: #### 1 023, 7600 #### [facility] of [place] [address] [employer] Supervisor: Christian Dove MD Urea nitrogen [Mass/Vol] 18 mg/dL Normal 7-25 [facility] Comment on above: Performed By: #### 1 023, 7600 #### [facility] of [place] [address] [employer] Supervisor: Christian Dove MD LIPID PANEL, [facility] 09-05 Cholesterol [Mass/Vol] 123 mg/dL Normal <200 [facility] Comment on above: Performed By: #### 1 0231, 7600 #### [facility] of [place] [address] [employer] Supervisor: Christian Dove MD Cholesterol in HDL [Mass/Vol] 36 mg/dL Low > OR = 50 [facility] Comment on above: Performed By: #### 1 0231, 7600 #### [facility] of [place] [address] [employer] Supervisor: Christian Dove MD Cholesterol in LDL [...] Ciro PENN et al. MARIA T. 2013;310(19): 7581-5111 (http://[email or web address]/faq/[email or web address]) Performed By: #### 1 0231, 7600 #### [facility] [address], [address] [place] [address] [employer] Supervisor: Christian Dove MD Cholesterol.total/Cho lesterol in HDL [Mass ratio] 3.4 {ratio} Normal <5.0 [facility] Comment on above: Performed By: #### 1 023, 7600 #### [facility] [address], [address] [place] [address] [employer] Supervisor: Christian Dove MD NON HDL CHOLESTEROL 87 mg/dL (calc) Normal <130 [facility] Comment on above: Result Comment: For patients with diabetes plus 1 major ASCVD risk factor, treating to a non-HDL-C goal of <100 mg/dL (LDL-C of <70 mg/dL) is considered a therapeutic option. Performed By: #### 1 023, 7600 #### [facility] [address], [address] [place] [address] [employer] Supervisor: Christian Dove MD Triglyceride [Mass/Vol] 134 mg/dL Normal <150 [facility] Comment on above: Performed By: #### 1 023, 7600 #### [facility] [address], [address] [place] [address] [employer] Supervisor: Christian Dove MD COVID Quick Testingon 2020 Result Positive [employer] Other POC GLUCOSE LABon 07-14-2020 Glucose [Mass/Vol] 311 mg/dL High 70-100 [facility] Comment on above: Performed By: #### 8 0359 #### [facility] [address] [place] [address], [place] Glucose [Mass/Vol] 231 mg/dL High 70-100 [facility] Comment on above: Performed By: #### 8 [id number] #### [facility] [address] [place] [address], [place] POC GLUCOSE LABon 07-13-2020 Glucose [Mass/Vol] 173 mg/dL High 70-100 [facility] Comment on above: Performed By: #### 8 [id number] #### [facility] [address] [place] [address], [place] Glucose [Mass/Vol] 117 mg/dL High 70-100 [facility] Comment on above: Performed By: #### 3 1792 #### [facility] [address] [place] [address], [place] Glucose [Mass/Vol] 282 mg/dL High 70-100 [facility] Comment on above: Performed By: #### 8 [id number] #### [facility] [address] [place] [address], [place] Glucose [Mass/Vol] 288 mg/dL High 70-100 [facility] Comment on above: Performed By: #### 8 [id number] ####[facility] [place] [address], [place] POC GLUCOSE LABon 07-12-2020 Glucose [Mass/Vol] 281 mg/dL High 70-100 [facility] Comment on above: Performed By: #### 8 [id number] ####[facility] [place] [address], [place] Glucose [Mass/Vol] 102 mg/dL High 70-100 [facility] Comment on above: Performed By: #### 8 [id number] ####[facility] [place] [address], [place] Glucose [Mass/Vol] 213 mg/dL High 70-100 [facility] Comment on above: Performed By: #### 8 [id number] ####[facility] [place] [address], [place] Glucose [Mass/Vol] 195 mg/dL High 70-100 [facility] Comment on above: Performed By: #### 3 1792 #### [facility] [address] [place] [address], [place] POC GLUCOSE LABon 07-11-2020 Glucose [Mass/Vol] 221 mg/dL High 70-100 [facility] Comment on above: Performed By: #### 8 [id number] #### [facility] [address] [place] [address], [place] Glucose [Mass/Vol] 201 mg/dL High 70-100 [facility] Comment on above: Performed By: #### 0 0071, 24687 #### [facility] [address] [place] [address], [place] Glucose [Mass/Vol] 279 mg/dL High 70-100 [facility] Comment on above: Performed By: #### 8 [id number] ####[facility] [place] [address], [place] Glucose [Mass/Vol] 214 mg/dL High 70-100 [facility] Comment on above: Performed By: #### 3 179 #### [facility] [address] [place] [address], [place] POC GLUCOSE LABon 07-10-2020 Glucose [Mass/Vol] 207 mg/dL High 70-100 [facility] Comment on above: Performed By: #### 8 [id number] #### [facility] [address] [place] [address], [place] Glucose [Mass/Vol] 119 mg/dL High 70-100 [facility] Comment on above: Performed By: #### 8 [id number] #### [facility] [address] [place] [address], [place] Glucose [Mass/Vol] 282 mg/dL High 70-100 [facility] Comment on above: Performed By: #### 8 [id number] #### [facility] [address] [place] [address], [place] Glucose [Mass/Vol] 212 mg/dL High 70-100 [facility] Comment on above: Performed By: #### 8 [id number] #### [facility] [address] [place] [address], [place] POC GLUCOSE LABon 07-09-2020 Glucose [Mass/Vol] 134 mg/dL High 70-100 [facility] Comment on above: Performed By: #### 8 [id number] ####[facility] [place] [address], [place] Glucose [Mass/Vol] 113 mg/dL High 70-100 [facility] Comment on above: Performed By: #### 8 5499 ####[facility] [place] [address], [place] Glucose [Mass/Vol] 158 mg/dL High 70-100 [facility] Comment on above: Performed By: #### 8 [id number] ####[facility] [place] [address], [place] Glucose [Mass/Vol] 146 mg/dL High 70-100 [facility] Comment on above: Performed By: #### 3 1792 #### [facility] [address] [place] [address], [place] BASIC METABOLIC PANELon 11-0 Calcium [Mass/Vol] 9.4 mg/dL Normal 8.6-10.3 [facility] Comment on above: Order Comment: No: D o not add to previous draw Performed By: #### 0 0071, 34437 #### [facility] [address] [place] [address], [place] Chloride [Moles/Vol] 102 mmol/L Normal 98-107 The [facility] Comment on above: Order Comment: No: D o not add to previous draw Performed By: #### 0 0071, 31958 #### [facility] [address] [place] [address], [place] CO2 [Moles/Vol] 28 mmol/L Normal 21-31 [facility] Comment on above: Order Comment: No: D o not add to previous draw Performed By: #### 0 0071, 95035 #### [facility] [address] [place] [address], [place] Creatinine [Mass/Vol] 0.73 mg/dL Normal 0.60-1.20 The [facility] Comment on above: Order Comment: No: D o not add to previous draw Performed By: #### 0 0071, 95293 #### [facility] [address] [place] [address], [place] GFR/1.73 sq M predicted among blacks MDRD (S/P/Bld) [Vol rate/Area] mL/min/{1.73_m2} Normal >60 The [facility] Comment on above: Order Comment: No: D o not add to previous draw Performed By: #### 0 0071, 99276 #### [facility] [address] [place] [address], [place] GFR/1.73 sq M predicted among non-blacks MDRD (S/P/Bld) [Vol rate/Area] mL/min/{1.73_m2} Normal >60 [facility] Comment on above: Order Comment: No: D o not add to previous draw Performed By: #### 0 0071, 16983 #### [facility] [address] [place] [id number], [facility] Glucose [Mass/Vol] 162 mg/dL High 70-100 The [facility] Comment on above: Order Comment: No: D o not add to previous draw Performed By: #### 0 0071, 46438 #### [facility] [address] [place] [address], [facility] Potassium [Moles/Vol] 3.8 mmol/L Normal 3.5-5.1 The [facility] Comment on above: Order Comment: No: D o not add to previous draw Performed By: #### 0 0071, 75166 #### [facility] [address] [place] [id number], [facility] Sodium [Moles/Vol] 138 mmol/L Normal 136-145 The [facility] Comment on above: Order Comment: No: D o not add to previous draw Performed By: #### 0 0071, 86930 #### [facility] [address] [place] [id number], [facility] Urea nitrogen [Mass/Vol] 15 mg/dL Normal 7-25 The [facility] Comment on above: Order Comment: No: D o not add to previous draw Performed By: #### 0 0071, 43906 #### [facility] [address] [facility] [place] [address], [facility] CBC W/DIFFon 07-08-2020 ABS BASOPHILS 0.1 10*3/uL Normal 0.0-0.2 The [facility] Comment on above: Order Comment: No: D o not add to previous draw Performed By: #### 8 [id number] #### [facility] [address] [place] [address], [facility] ABS IMM GRANS 0.0 10*3/uL Normal 0.0-0.2 The [facility] Comment on above: Order Comment: No: D o not add to previous draw Performed By: #### 8 [id number] #### [facility] [address] [place] [address], [facility] ABS NEUTROPHILS 3.5 10*3/uL Normal 1.6-7.6 The [facility] Comment on above: Order Comment: No: D o not add to previous draw Performed By: #### 8 [id number] #### [facility] [address] [place] [address], [facility] Basophils/100 WBC (Bld) 0.9 % Normal 0.0-1.0 The [facility] Comment on above: Order Comment: No: D o not add to previous draw Performed By: #### 8 [id number] #### [facility] [address] [place] [id number], [facility] Eosinophils (Bld) [#/Vol] 0.3 10*3/uL Normal 0.0-0.5 [facility] Comment on above: Order Comment: No: D o not add to previous draw Performed By: #### 8 [id number] #### [facility] [address] [place] [address], [facility] Eosinophils/100 WBC (Bld) 3.9 % Normal 0.0-6.0 The [facility] Comment on above: Order Comment: No: D o not add to previous draw Performed By: #### 8 [id number] #### [facility] [address] [facility] [place] [address], [facility] Erythrocyte distribution width (RBC) [Ratio] 15.1 % High 11.5-15.0 The [facility] Comment on above: Order Comment: No: D o not add to previous draw Performed By: #### 8 [id number] #### [facility] [address] [place] [id number], [facility] Hematocrit (Bld) [Volume fraction] 41.0 % Normal 36.0-45.0 The [facility] Comment on above: Order Comment: No: D o not add to previous draw Performed By: #### 8 [id number] #### [facility] [address] [place] [address], [facility] Hemoglobin (Bld) [Mass/Vol] 13.0 g/dL Normal 12.0-15.0 The [facility] Comment on above: Order Comment: No: D o not add to previous draw Performed By: #### 8 [id number] #### [facility] [address] [place] [address], [facility] IMMATURE GRANS 0.5 % Normal 0.0-1.0 The [facility] Comment on above: Order Comment: No: D o not add to previous draw Performed By: #### 8 [id number] #### [facility] [address] [facility] [place] [address], [facility] Lymphocytes (Bld) [#/Vol] 1.8 10*3/uL Normal 1.2-4.0 The [facility] Comment on above: Order Comment: No: D o not add to previous draw Performed By: #### 8 [id number] #### [facility] [address] [place] [id number], [facility] Lymphocytes/100 WBC (Bld) 28.2 % Normal 20.0-45.0 The [facility] Comment on above: Order Comment: No: D o not add to previous draw Performed By: #### 8 [id number] #### [facility] [address] [facility] [place] [address], [facility] MCH (RBC) [Entitic mass] 28.6 pg Normal 27.0-33.0 The [facility] Comment on above: Order Comment: No: D o not add to previous draw Performed By: #### 8 [id number] #### [facility] [address] [place] [id number], [facility] MCHC (RBC) [Mass/Vol] 31.7 g/dL Low 32.0-35.0 The [facility] Comment on above: Order Comment: No: D o not add to previous draw Performed By: #### 8 [id number] #### [facility] [address] [place] [address], [facility] MCV (RBC) [Entitic vol] 90.3 fL Normal 82.0-98.0 The [facility] Comment on above: Order Comment: No: D o not add to previous draw Performed By: #### 8 [id number] #### [facility] [address] [place] [address], [facility] Monocytes (Bld) [#/Vol] 0.7 10*3/uL Normal 0.1-1.0 The [facility] Comment on above: Order Comment: No: D o not add to previous draw Performed By: #### 8 [id number] #### [facility] [address] [place] [id number], [facility] MONOS 11.1 % Normal 5.0-12.0 The [facility] Comment on above: Order Comment: No: D o not add to previous draw Performed By: #### 8 [id number] #### [facility] [address] [place] [address], [facility] Neutrophils/100 WBC (Bld) 55.4 % Normal 40.0-72.0 The [facility] Comment on above: Order Comment: No: D o not add to previous draw Performed By: #### 8 [id number] #### [facility] [address] [place] [address], [facility] Nucleated RBC/100 WBC (Bld) [Ratio] 0 % Normal 0-0 The [facility] Comment on above: Order Comment: No: D o not add to previous draw Performed By: #### 8 [id number] #### [facility] [address] [place] [address], [place] PLAT CNT 230 10*3/uL Normal 150-400 The [facility] Comment on above: Order Comment: No: D o not add to previous draw Performed By: #### 8 [id number] #### [facility] [address] [place] [address], [place] RBC (Bld) [#/Vol] 4.54 10*6/uL Normal 3.80-5.00 The [facility] Comment on above: Order Comment: No: D o not add to previous draw Performed By: #### 8 [id number] #### [facility] [address] [place] [address], [place] WBC (Bld) [#/Vol] 6.38 10*3/uL Normal 4.00-10.60 The [facility] Comment on above: Order Comment: No: D o not add to previous draw Performed By: #### 8 [id number] #### [facility] [address] [place] [address], [place] POC GLUCOSE LABon 07-08-2020 Glucose [Mass/Vol] 164 mg/dL High 70-100 [facility] Comment on above: Performed By: #### 8 [id number] #### [facility] [address] [place] [address], [place] Glucose [Mass/Vol] 137 mg/dL High 70-100 [facility] Comment on above: Performed By: #### 8 5499 ####[facility] [place] [address], [place] Glucose [Mass/Vol] 247 mg/dL High 70-100 [facility] Comment on above: Performed By: #### 8 [id number] ####[facility] [place] [address], [place] Glucose [Mass/Vol] 154 mg/dL High 70-100 [facility] Comment on above: Performed By: #### 8 [id number] ####[facility] [place] [address], [place] Glucose [Mass/Vol] 158 mg/dL High 70-100 [facility] Comment on above: Performed By: #### 8 [id number] #### [facility] [address] [place] [address], [place] POC GLUCOSE LABon 07-07-2020 Glucose [Mass/Vol] 144 mg/dL High 70-100 [facility] Comment on above: Performed By: #### 3 1792 #### [facility] [address] [place] [address], [place] Glucose [Mass/Vol] 184 mg/dL High 70-100 [facility] Comment on above: Performed By: #### 8 [id number] ####[facility] [place] [address], [place] Glucose [Mass/Vol] 171 mg/dL High 70-100 [facility] Comment on above: Performed By: #### 8 [id number] ####[facility] [place] [address], [place] Glucose [Mass/Vol] 98 mg/dL Normal 70-100 [facility] Comment on above: Performed By: #### 8 [id number] #### [facility] [address] [place] [address], [place] POC GLUCOSE LABon 07-06-2020 Glucose [Mass/Vol] 220 mg/dL High 70-100 [facility] Comment on above: Performed By: #### 8 [id number] ####[facility] [place] [address], [place] Glucose [Mass/Vol] 215 mg/dL High 70-100 [facility] Comment on above: Performed By: #### 8 [id number] ####[facility] [place] [address], [place] Glucose [Mass/Vol] 288 mg/dL High 70-100 [facility] Comment on above: Performed By: #### 3 1792 #### [facility] [address] [place] [address], [place] POC GLUCOSE LABon 07-05-2020 Glucose [Mass/Vol] 111 mg/dL High 70-100 The [facility] Comment on above: Performed By: #### 8 [id number] #### [facility] [address] [place] [address], [place] Glucose [Mass/Vol] 144 mg/dL High 70-100 The [facility] Comment on above: Performed By: #### 8 [id number] #### [facility] [address] [place] [address], [place] Glucose [Mass/Vol] 151 mg/dL High 70-100 The [facility] Comment on above: Performed By: #### 8 [id number] ####[facility] [place] [address], [place] Glucose [Mass/Vol] 157 mg/dL High 70-100 The [facility] Comment on above: Performed By: #### 8 5499 ####[facility] [place] [address], [place] Glucose [Mass/Vol] 154 mg/dL High 70-100 The [facility] Comment on above: Performed By: #### 8 5499 ####[facility] [place] [address], [place] BASIC METABOLIC PANELon 10-3 Calcium [Mass/Vol] 9.2 mg/dL Normal 8.6-10.3 The [facility] Comment on above: Order Comment: No: D o not add to previous draw Performed By: #### 0 0071, 36905 #### [facility] [address] [place] [address], [place] Chloride [Moles/Vol] 101 mmol/L Normal 98-107 The [facility] Comment on above: Order Comment: No: D o not add to previous draw Performed By: #### 0 0071, 93430 #### [facility] [address] [place] [address], [place] CO2 [Moles/Vol] 26 mmol/L Normal 21-31 [facility] Comment on above: Order Comment: No: D o not add to previous draw Performed By: #### 0 0071, 99059 #### [facility] [address] [place] [address], [place] Creatinine [Mass/Vol] 0.75 mg/dL Normal 0.60-1.20 The [facility] Comment on above: Order Comment: No: D o not add to previous draw Performed By: #### 0 0071, 20962 #### [facility] [address] [place] [address], [place] GFR/1.73 sq M predicted among blacks MDRD (S/P/Bld) [Vol rate/Area] mL/min/{1.73_m2} Normal >60 [facility] Comment on above: Order Comment: No: D o not add to previous draw Performed By: #### 0 0071, 51226 #### [facility] [address] [place] [address], [place] GFR/1.73 sq M predicted among non-blacks MDRD (S/P/Bld) [Vol rate/Area] mL/min/{1.73_m2} Normal >60 The [facility] Comment on above: Order Comment: No: D o not add to previous draw Performed By: #### 0 0071, 26134 #### [facility] [address] [place] [address], [place] Glucose [Mass/Vol] 343 mg/dL High 70-100 [facility] Comment on above: Order Comment: No: D o not add to previous draw Performed By: #### 0 0071, 64470 #### [facility] [address] [place] [address], [place] Potassium [Moles/Vol] 3.6 mmol/L Normal 3.5-5.1 The [facility] Comment on above: Order Comment: No: D o not add to previous draw Performed By: #### 0 0071, 87920 #### [facility] [address] [place] [address], [facility] Sodium [Moles/Vol] 137 mmol/L Normal 136-145 The [facility] Comment on above: Order Comment: No: D o not add to previous draw Performed By: #### 0 0071, 21897 #### [facility] [address] [place] [address], [facility] Urea nitrogen [Mass/Vol] 15 mg/dL Normal 7-25 The [facility] Comment on above: Order Comment: No: D o not add to previous draw Performed By: #### 0 0071, 17899 #### [facility] [address] [place] [address], [facility] CBC W/DIFFon 07-04-2020 ABS BASOPHILS 0.0 10*3/uL Normal 0.0-0.2 The [facility] Comment on above: Order Comment: No: D o not add to previous draw Performed By: #### 8 [id number] #### [facility] [address] [place] [address], [facility] ABS IMM GRANS 0.0 10*3/uL Normal 0.0-0.2 The [facility] Comment on above: Order Comment: No: D o not add to previous draw Performed By: #### 8 [id number] #### [facility] [address] [place] [address], [facility] ABS NEUTROPHILS 4.0 10*3/uL Normal 1.6-7.6 The [facility] Comment on above: Order Comment: No: D o not add to previous draw Performed By: #### 8 [id number] #### [facility] [address] [place] [id number], [facility] Basophils/100 WBC (Bld) 0.7 % Normal 0.0-1.0 The [facility] Comment on above: Order Comment: No: D o not add to previous draw Performed By: #### 8 [id number] #### [facility] [address] [place] [address], [facility] Eosinophils (Bld) [#/Vol] 0.3 10*3/uL Normal 0.0-0.5 The [facility] Comment on above: Order Comment: No: D o not add to previous draw Performed By: #### 8 [id number] #### [facility] [address] [place] [address], [facility] Eosinophils/100 WBC (Bld) 4.7 % Normal 0.0-6.0 The [facility] Comment on above: Order Comment: No: D o not add to previous draw Performed By: #### 8 [id number] #### [facility] [address] Erythrocyte distribution width (RBC) [Ratio] 15.0 % Normal 11.5-15.0 The [facility] Comment on above: Order Comment: No: D o not add to previous draw Performed By: #### 8 [id number] #### [facility] [address] [place] [place] [address], [facility] Hematocrit (Bld) [Volume fraction] 38.0 % Normal 36.0-45.0 The [facility] Comment on above: Order Comment: No: D o not add to previous draw Performed By: #### 8 [id number] #### [facility] [address] [place] [address], [facility] Hemoglobin (Bld) [Mass/Vol] 12.4 g/dL Normal 12.0-15.0 The [facility] Comment on above: Order Comment: No: D o not add to previous draw Performed By: #### 8 [id number] #### [facility] [address] [place] [address], [facility] IMMATURE GRANS 0.3 % Normal 0.0-1.0 [facility] Comment on above: Order Comment: No: D o not add to previous draw Performed By: #### 8 [id number] #### [facility] [address] [place] [address], [facility] Lymphocytes (Bld) [#/Vol] 1.1 10*3/uL Low 1.2-4.0 The [facility] Comment on above: Order Comment: No: D o not add to previous draw Performed By: #### 8 [id number] #### [facility] [address] [place] [address], [facility] Lymphocytes/100 WBC (Bld) 18.1 % Low 20.0-45.0 The [facility] Comment on above: Order Comment: No: D o not add to previous draw Performed By: #### 8 [id number] #### [facility] [address] [facility] [place] [address], [facility] MCH (RBC) [Entitic mass] 29.1 pg Normal 27.0-33.0 The [facility] Comment on above: Order Comment: No: D o not add to previous draw Performed By: #### 8 [id number] #### [facility] [address] [facility] [place] [address], [facility] MCHC (RBC) [Mass/Vol] 32.6 g/dL Normal 32.0-35.0 The [facility] Comment on above: Order Comment: No: D o not add to previous draw Performed By: #### 8 [id number] #### [facility] [address] [place] [address], [facility] MCV (RBC) [Entitic vol] 89.2 fL Normal 82.0-98.0 The [facility] Comment on above: Order Comment: No: D o not add to previous draw Performed By: #### 8 [id number] #### [facility] [address] [place] [address], [facility] Monocytes (Bld) [#/Vol] 0.6 10*3/uL Normal 0.1-1.0 [facility] Comment on above: Order Comment: No: D o not add to previous draw Performed By: #### 8 [id number] #### [facility] [address] [place] [id number], [facility] MONOS 9.6 % Normal 5.0-12.0 The [facility] Comment on above: Order Comment: No: D o not add to previous draw Performed By: #### 8 [id number] #### [facility] [address] [place] [address], [facility] Neutrophils/100 WBC (Bld) 66.6 % Normal 40.0-72.0 The [facility] Comment on above: Order Comment: No: D o not add to previous draw Performed By: #### 8 [id number] #### [facility] [address] [place] [address], [facility] Nucleated RBC/100 WBC (Bld) [Ratio] 0 % Normal 0-0 The [facility] Comment on above: Order Comment: No: D o not add to previous draw Performed By: #### 8 [id number] #### [facility] [address] [place] [id number], [facility] PLAT CNT 186 10*3/uL Normal 150-400 The [facility] Comment on above: Order Comment: No: D o not add to previous draw Performed By: #### 8 [id number] #### [facility] [address] [facility] [place] [id number], [facility] RBC (Bld) [#/Vol] 4.26 10*6/uL Normal 3.80-5.00 The [facility] Comment on above: Order Comment: No: D o not add to previous draw Performed By: #### 8 [id number] #### [facility] [address] [place] [address], [place] WBC (Bld) [#/Vol] 5.96 10*3/uL Normal 4.00-10.60 The [facility] Comment on above: Order Comment: No: D o not add to previous draw Performed By: #### 8 [id number] #### [facility] [address] [place] [address], [place] MAGNESIUM BLOODon 07-04-2020 Magnesium [Mass/Vol] 1.7 mg/dL Low 1.9-2.7 The [facility] Comment on above: Order Comment: No: D o not add to previous draw Performed By: #### 0 0071, 23214 #### [facility] [address] [place] [address], [place] POC GLUCOSE LABon 07-04-2020 Glucose [Mass/Vol] 143 mg/dL High 70-100 The [facility] Comment on above: Performed By: #### 8 [id number] #### [facility] [address] [place] [address], [place] Glucose [Mass/Vol] 226 mg/dL High 70-100 The [facility] Comment on above: Performed By: #### 3 [id number] #### [facility] [address] [place] [address], [place] Glucose [Mass/Vol] 340 mg/dL High 70-100 The [facility] Comment on above: Performed By: #### 8 [id number] #### [facility] [address] [place] [address], [place] BASIC METABOLIC PANELon 06-06 Calcium [Mass/Vol] 9.1 mg/dL Normal 8.6-10.3 The [facility] Comment on above: Order Comment: No: D o not add to previous draw Performed By: #### 0 0071, 70821 #### [facility] [address] [place] [address], [place] Chloride [Moles/Vol] 104 mmol/L Normal 98-107 The [facility] Comment on above: Order Comment: No: D o not add to previous draw Performed By: #### 0 0071, 22420 #### [facility] [address] [place] [address], [place] CO2 [Moles/Vol] 27 mmol/L Normal 21-31 [facility] Comment on above: Order Comment: No: D o not add to previous draw Performed By: #### 0 0071, 04668 #### [facility] [address] [place] [address], [place] Creatinine [Mass/Vol] 0.69 mg/dL Normal 0.60-1.20 [facility] Comment on above: Order Comment: No: D o not add to previous draw Performed By: #### 0 0071, 47913 #### [facility] [address] [place] [address], [place] GFR/1.73 sq M predicted among blacks MDRD (S/P/Bld) [Vol rate/Area] mL/min/{1.73_m2} Normal >60 [facility] Comment on above: Order Comment: No: D o not add to previous draw Performed By: #### 0 0071, 31694 #### [facility] [address] [place] [address], [place] GFR/1.73 sq M predicted among non-blacks MDRD (S/P/Bld) [Vol rate/Area] mL/min/{1.73_m2} Normal >60 [facility] Comment on above: Order Comment: No: D o not add to previous draw Performed By: #### 0 0071, 65765 #### [facility] [address] [place] [address], [place] Glucose [Mass/Vol] 192 mg/dL High 70-100 [facility] Comment on above: Order Comment: No: D o not add to previous draw Performed By: #### 0 0071, 11408 #### [facility] [address] [place] [address], [place] Potassium [Moles/Vol] 3.2 mmol/L Low 3.5-5.1 The [facility] Comment on above: Order Comment: No: D o not add to previous draw Performed By: #### 0 0071, 44972 #### [facility] [address] [place] [address], [facility] Sodium [Moles/Vol] 139 mmol/L Normal 136-145 The [facility] Comment on above: Order Comment: No: D o not add to previous draw Performed By: #### 0 0071, [id number] #### [facility] [address] [place] [address], [facility] Urea nitrogen [Mass/Vol] 13 mg/dL Normal 7-25 [facility] Comment on above: Order Comment: No: D o not add to previous draw Performed By: #### 0 0071, 45223 #### [facility] [address] [place] [address], [facility] CBC W/DIFFon 07-03-2020 ABS BASOPHILS 0.1 10*3/uL Normal 0.0-0.2 The [facility] Comment on above: Order Comment: No: D o not add to previous draw Performed By: #### 8 [id number] #### [facility] [address] [place] [address], [facility] ABS IMM GRANS 0.0 10*3/uL Normal 0.0-0.2 The [facility] Comment on above: Order Comment: No: D o not add to previous draw Performed By: #### 8 [id number] #### [facility] [address] [place] [address], [facility] ABS NEUTROPHILS 3.7 10*3/uL Normal 1.6-7.6 The [facility] Comment on above: Order Comment: No: D o not add to previous draw Performed By: #### 8 [id number] #### [facility] [address] [place] [address], [facility] Basophils/100 WBC (Bld) 0.8 % Normal 0.0-1.0 The [facility] Comment on above: Order Comment: No: D o not add to previous draw Performed By: #### 8 [id number] #### [facility] [address] [place] [address], [facility] Eosinophils (Bld) [#/Vol] 0.3 10*3/uL Normal 0.0-0.5 The [facility] Comment on above: Order Comment: No: D o not add to previous draw Performed By: #### 8 [id number] #### [facility] [address] [facility] [place] [address], [facility] Eosinophils/100 WBC (Bld) 4.4 % Normal 0.0-6.0 [facility] Comment on above: Order Comment: No: D o not add to previous draw Performed By: #### 8 [id number] #### [facility] [address] [facility] [address] Erythrocyte distribution width (RBC) [Ratio] 14.7 % Normal 11.5-15.0 [facility] Comment on above: Order Comment: No: D o not add to previous draw Performed By: #### 8 [id number] #### [facility] [address] [facility] [place] [address], [facility] Hematocrit (Bld) [Volume fraction] 38.4 % Normal 36.0-45.0 [facility] Comment on above: Order Comment: No: D o not add to previous draw Performed By: #### 8 [id number] #### [facility] [address] [facility] [place] [address], [facility] Hemoglobin (Bld) [Mass/Vol] 12.2 g/dL Normal 12.0-15.0 [facility] Comment on above: Order Comment: No: D o not add to previous draw Performed By: #### 8 [id number] #### [facility] [address] [place] [address], [facility] IMMATURE GRANS 0.5 % Normal 0.0-1.0 [facility] Comment on above: Order Comment: No: D o not add to previous draw Performed By: #### 8 [id number] #### [facility] [address] [place] [address], [facility] Lymphocytes (Bld) [#/Vol] 1.3 10*3/uL Normal 1.2-4.0 [facility] Comment on above: Order Comment: No: D o not add to previous draw Performed By: #### 8 [id number] #### [facility] [address] [place] [address], [facility] Lymphocytes/100 WBC (Bld) 22.0 % Normal 20.0-45.0 [facility] Comment on above: Order Comment: No: D o not add to previous draw Performed By: #### 8 [id number] #### [facility] [address] [facility] [place] [address], [facility] MCH (RBC) [Entitic mass] 28.6 pg Normal 27.0-33.0 [facility] Comment on above: Order Comment: No: D o not add to previous draw Performed By: #### 8 [id number] #### [facility] [address] [place] [place] [address], [facility] MCHC (RBC) [Mass/Vol] 31.8 g/dL Low 32.0-35.0 [facility] Comment on above: Order Comment: No: D o not add to previous draw Performed By: #### 8 [id number] #### [facility] [address] [place] [id number], [facility] MCV (RBC) [Entitic vol] 90.1 fL Normal 82.0-98.0 [facility] Comment on above: Order Comment: No: D o not add to previous draw Performed By: #### 8 [id number] #### [facility] [address] [place] [id number], [facility] Monocytes (Bld) [#/Vol] 0.7 10*3/uL Normal 0.1-1.0 [facility] Comment on above: Order Comment: No: D o not add to previous draw Performed By: #### 8 [id number] #### [facility] [address] [place] [address], [facility] MONOS 11.1 % Normal 5.0-12.0 [facility] Comment on above: Order Comment: No: D o not add to previous draw Performed By: #### 8 [id number] #### [facility] [address] [place] [address], [facility] Neutrophils/100 WBC (Bld) 61.2 % Normal 40.0-72.0 [facility] Comment on above: Order Comment: No: D o not add to previous draw Performed By: #### 8 [id number] #### [facility] [address] [place] [address], [facility] Nucleated RBC/100 WBC (Bld) [Ratio] 0 % Normal 0-0 [facility] Comment on above: Order Comment: No: D o not add to previous draw Performed By: #### 8 [id number] #### [facility] [address] [place] [place] [address], [facility] PLAT CNT 193 10*3/uL Normal 150-400 The [facility] Comment on above: Order Comment: No: D o not add to previous draw Performed By: #### 8 [id number] #### [facility] [address] [place] [address], [facility] RBC (Bld) [#/Vol] 4.26 10*6/uL Normal 3.80-5.00 The [facility] Comment on above: Order Comment: No: D o not add to previous draw Performed By: #### 8 [id number] #### [facility] [address] [place] [id number], [facility] WBC (Bld) [#/Vol] 5.96 10*3/uL Normal 4.00-10.60 The [facility] Comment on above: Order Comment: No: D o not add to previous draw Performed By: #### 8 [id number] #### [facility] [address] [place] [address], [facility] POC GLUCOSE LABon 07-03-2020 Glucose [Mass/Vol] 161 mg/dL High 70-100 The [facility] Comment on above: Performed By: #### 8 [id number] #### [facility] [address] [place] [address], [facility] BASIC METABOLIC PANELon 06-06 Calcium [Mass/Vol] 8.5 mg/dL Low 8.6-10.3 The [facility] Comment on above: Order Comment: No: D o not add to previous draw Performed By: #### 0 0071, 19604 #### [facility] [address] [place] [address], [place] Chloride [Moles/Vol] 103 mmol/L Normal 98-107 The [facility] Comment on above: Order Comment: No: D o not add to previous draw Performed By: #### 0 0071, 56865 #### [facility] [address] [place] [address], [place] CO2 [Moles/Vol] 24 mmol/L Normal 21-31 The [facility] Comment on above: Order Comment: No: D o not add to previous draw Performed By: #### 0 0071, 85935 #### [facility] [address] [place] [address], [place] Creatinine [Mass/Vol] 0.76 mg/dL Normal 0.60-1.20 The [facility] Comment on above: Order Comment: No: D o not add to previous draw Performed By: #### 0 0071, 79386 #### [facility] [address] [place] [address], [place] GFR/1.73 sq M predicted among blacks MDRD (S/P/Bld) [Vol rate/Area] mL/min/{1.73_m2} Normal >60 The [facility] Comment on above: Order Comment: No: D o not add to previous draw Performed By: #### 0 0071, 89412 #### [facility] [address] [place] [address], [place] GFR/1.73 sq M predicted among non-blacks MDRD (S/P/Bld) [Vol rate/Area] mL/min/{1.73_m2} Normal >60 The [facility] Comment on above: Order Comment: No: D o not add to previous draw Performed By: #### 0 0071, 15605 #### [facility] [address] [place] [address], [place] Glucose [Mass/Vol] 224 mg/dL High 70-100 The [facility] Comment on above: Order Comment: No: D o not add to previous draw Performed By: #### 0 0071, 91477 #### [facility] [address] [place] [address], [place] Potassium [Moles/Vol] 4.0 mmol/L Normal 3.5-5.1 The [facility] Comment on above: Order Comment: No: D o not add to previous draw Performed By: #### 0 0071, 21143 #### [facility] [address] [place] [address], [place] Sodium [Moles/Vol] 134 mmol/L Low 136-145 The [facility] Comment on above: Order Comment: No: D o not add to previous draw Performed By: #### 0 0071, 83543 #### [facility] [address] [place] [address], [place] Urea nitrogen [Mass/Vol] 16 mg/dL Normal 7-25 The [facility] Comment on above: Order Comment: No: D o not add to previous draw Performed By: #### 0 0071, 01055 #### [facility] [address] [place] [address], [facility] CBC W/DIFFon 07-02-2020 ABS BASOPHILS 0.1 10*3/uL Normal 0.0-0.2 The [facility] Comment on above: Order Comment: No: D o not add to previous draw Performed By: #### 0 0071, 09169 #### [facility] [address] [place] [address], [facility] ABS IMM GRANS 0.1 10*3/uL Normal 0.0-0.2 The [facility] Comment on above: Order Comment: No: D o not add to previous draw Performed By: #### 0 0071, 95544 #### [facility] [address] [place] [address], [facility] ABS NEUTROPHILS 6.5 10*3/uL Normal 1.6-7.6 The [facility] Comment on above: Order Comment: No: D o not add to previous draw Performed By: #### 0 0071, 68504 #### [facility] [address] [place] [address], [facility] Basophils/100 WBC (Bld) 0.7 % Normal 0.0-1.0 The [facility] Comment on above: Order Comment: No: D o not add to previous draw Performed By: #### 0 0071, 36086 #### [facility] [address] [place] [address], [facility] Eosinophils (Bld) [#/Vol] 0.2 10*3/uL Normal 0.0-0.5 The [facility] Comment on above: Order Comment: No: D o not add to previous draw Performed By: #### 0 0071, 81621 #### [facility] [address] [place] [address], [facility] Eosinophils/100 WBC (Bld) 2.5 % Normal 0.0-6.0 The [facility] Comment on above: Order Comment: No: D o not add to previous draw Performed By: #### 0 0071, 35315 #### [facility] [address] [place] [address], [facility] Erythrocyte distribution width (RBC) [Ratio] 14.9 % Normal 11.5-15.0 The [facility] Comment on above: Order Comment: No: D o not add to previous draw Performed By: #### 0 0071, 35438 #### [facility] [address] [place] [address], [facility] Hematocrit (Bld) [Volume fraction] 37.8 % Normal 36.0-45.0 The [facility] Comment on above: Order Comment: No: D o not add to previous draw Performed By: #### 0 0071, 09427 #### [facility] [address] [place] [address], [facility] Hemoglobin (Bld) [Mass/Vol] 12.0 g/dL Normal 12.0-15.0 The [facility] Comment on above: Order Comment: No: D o not add to previous draw Performed By: #### 0 0071, 64341 #### [facility] [address] [place] [address], [facility] IMMATURE GRANS 0.6 % Normal 0.0-1.0 The [facility] Comment on above: Order Comment: No: D o not add to previous draw Performed By: #### 0 0071, 52364 #### [facility] [address] [facility] [place] [address], [facility] Lymphocytes (Bld) [#/Vol] 1.0 10*3/uL Low 1.2-4.0 The [facility] Comment on above: Order Comment: No: D o not add to previous draw Performed By: #### 0 0071, 59225 #### [facility] [address] [place] [address], [facility] Lymphocytes/100 WBC (Bld) 11.3 % Low 20.0-45.0 The [facility] Comment on above: Order Comment: No: D o not add to previous draw Performed By: #### 0 0071, 16884 #### [facility] [address] [place] [address], [facility] MCH (RBC) [Entitic mass] 29.0 pg Normal 27.0-33.0 The [facility] Comment on above: Order Comment: No: D o not add to previous draw Performed By: #### 0 0071, 57259 #### [facility] [address] [place] [address], [facility] MCHC (RBC) [Mass/Vol] 31.7 g/dL Low 32.0-35.0 The [facility] Comment on above: Order Comment: No: D o not add to previous draw Performed By: #### 0 0071, 97920 #### [facility] [address] [place] [address], [facility] MCV (RBC) [Entitic vol] 91.3 fL Normal 82.0-98.0 The [facility] Comment on above: Order Comment: No: D o not add to previous draw Performed By: #### 0 0071, 23647 #### [facility] [address] [facility] [place] [address], [facility] Monocytes (Bld) [#/Vol] 0.9 10*3/uL Normal 0.1-1.0 The [facility] Comment on above: Order Comment: No: D o not add to previous draw Performed By: #### 0 0071, 37065 #### [facility] [address] [place] [address], [facility] MONOS 10.3 % Normal 5.0-12.0 The [facility] Comment on above: Order Comment: No: D o not add to previous draw Performed By: #### 0 0071, 30035 #### [facility] [address] [place] [id number], [facility] Neutrophils/100 WBC (Bld) 74.6 % High 40.0-72.0 The [facility] Comment on above: Order Comment: No: D o not add to previous draw Performed By: #### 0 0071, 16793 #### [facility] [address] [place] [address], [facility] Nucleated RBC/100 WBC (Bld) [Ratio] 0 % Normal 0-0 The [facility] Comment on above: Order Comment: No: D o not add to previous draw Performed By: #### 0 0071, [id number] #### [facility] [address] [place] [address], [facility] PLAT CNT 229 10*3/uL Normal 150-400 The [facility] Comment on above: Order Comment: No: D o not add to previous draw Performed By: #### 0 0071, 95984 #### [facility] [address] [place] [address], [facility] RBC (Bld) [#/Vol] 4.14 10*6/uL Normal 3.80-5.00 The [facility] Comment on above: Order Comment: No: D o not add to previous draw Performed By: #### 0 0071, 62476 #### [facility] [address] [place] [address], [facility] WBC (Bld) [#/Vol] 8.65 10*3/uL Normal 4.00-10.60 The [facility] Comment on above: Order Comment: No: D o not add to previous draw Performed By: #### 0 0071, 46703 #### [facility] [address] [place] [address], [facility] MAGNESIUM BLOODon 07-02-2020 Magnesium [Mass/Vol] 1.8 mg/dL Low 1.9-2.7 The [facility] Comment on above: Order Comment: No: D o not add to previous draw Performed By: #### 0 0071, [id number] #### [facility] [address] [place], [place] [id number] [place] [address] POC GLUCOSE LABon 07-02-2020 Glucose [Mass/Vol] 157 mg/dL High 70-100 The [facility] Comment on above: Performed By: #### 8 5499 #### [address] *MRSA/MSSA CULTUREon 020 *MRSA/MSSA CULTURE Clinical [...] No previously released data found. Normal The [facility] Comment on above: Performed By: #### 3 1302 #### [address] LUMBAR SPINE 2 OR 3 [facility] LUMBAR SPINE [address] [facility] Department of Radiology [address] [place] [id number] Patient Name: MONICA ACOSTA : 1960 Sex: F Age: Race: White Pt. Location: [id number] Patient Status: I Ordered Date: 07/01/2020 7:00:00 [...] reports Electronically signed: Richard Clarke. Transcribed by: [email or web address], User Resident: BOGDAN SOTELO Electronically Signed by: RICHARD CLARKE @ 07/01/2020 08:54 PM I personally read this/these film(s) with this resident Normal The [facility] Comment on above: Order Comment: No: D o not add to previous draw Operative Reporton 0 Operative Report MR#: [id number] I [facility] Pt. Name: Monica Acosta Room #: [id number] Discharge Date: Birthdate: 1960 OPERATIVE REPORT DATE OF SURGERY: 07/01/2020 SURGEON: Chilango Martinez M.D. DREDGE MECHANIC: Ant Jolley M.D. PREOPERATIVE DIAGNOSIS: L1 vertebral compression fracture secondary to osteoporosis (ICD-10 M80.08XA). ANESTHESIA: General endotracheal. POSITION: Prone position on the Chris table in reverse Trendelenburg position. OPERATION: 1. L1 vertebroplasty (20769). 2. Use of intraoperative fluoroscopy (93416). POSTOPERATIVE DIAGNOSIS: [id number] compression fracture secondary to osteoporosis (ICD-10 M80.08XA). [...] lateral, the cement from [employer] was mixed. Cement was injected under live [...] Martinez M.D. Date Trans: 07/01/2020 12:25 P/ [id number] Normal The [facility] POC GLUCOSE LABon 07-01-2020 Glucose [Mass/Vol] 142 mg/dL High 70-100 The [facility] Comment on above: Performed By: #### 8 [id number] ####[facility] [place] [address], [facility] Glucose [Mass/Vol] 156 mg/dL High 70-100 The [facility] Comment on above: Performed By: #### 3 1792 #### [facility] [address] [place] [id number], [facility] Glucose [Mass/Vol] 187 mg/dL High 70-100 The [facility] Comment on above: Performed By: #### 3 1792 #### [facility] [address] [facility] [place] [address], [facility] *SARS-CoV-2 COVID-19on 06-30 [id number] Not Detected Normal Not Detected The [facility] Comment on above: Order Comment: The A ptima SARS-CoV-2 assay is a nucleic acid amplification test intended for the qualitative detection of RNA from SARS-CoV-2 isolated and purified from nasopharyngeal (PAPER MAKING MACHINE OPERATOR),oropharyngeal (OP), nasal swab, sputum, and bronchoalveolar lavage (BAL) specimens from patients with signs and symptoms of infection who are suspected of COVID-19. Results are for the identification of SARS-CoV-2 RNA. The SARS-CoV-2 RNA is generally detectable during the acute phase of infection. The Aptima SARS-CoV-2 Assay on the [employer] system is intended for use by laboratory personnel specifically instructed and trained in the operation of the [place] [employer] system. The Aptima SARS-CoV-2 assay is [...] information. Performed By: #### 3 1792 #### [facility] [address] APTTon 06-30-2020 aPTT Coag (Bld) [Time] 22.4 s Low 25.0-35.0 [facility] Comment on above: Result Comment: ALL [...] PURPOSE. Performed By: #### 8 [id number] #### [facility] [address] [facility]. [address] BASIC METABOLIC PANELon 10-2 Calcium [Mass/Vol] 9.5 mg/dL Normal 8.6-10.3 [facility] Comment on above: Performed By: #### 8 5499 #### [facility] [address] [facility] [place] [address], [facility] Chloride [Moles/Vol] 95 mmol/L Low 98-107 The [facility] Comment on above: Performed By: #### 8 [id number] #### [facility] [address] [facility] [place] [place] [address], [facility] CO2 [Moles/Vol] 21 mmol/L Normal 21-31 The [facility] Comment on above: Performed By: #### 8 [id number] #### [facility] [address] [place] [address], [place] Creatinine [Mass/Vol] 1.00 mg/dL Normal 0.60-1.20 The [facility] Comment on above: Performed By: #### 8 5499 #### [facility] [address] [place] [address], [place] GFR/1.73 sq M predicted among blacks MDRD (S/P/Bld) [Vol rate/Area] mL/min/{1.73_m2} Normal >60 The [facility] Comment on above: Performed By: #### 8 5499 #### [facility] [address] [place] [address], [place] GFR/1.73 sq M predicted among non-blacks MDRD (S/P/Bld) [Vol rate/Area] 56 ml/min/1.73sq m Abnormal >60 The [facility] Comment on above: Performed By: #### 8 5499 #### [facility] [address] [place] [address], [place] Glucose [Mass/Vol] 395 mg/dL High 70-100 The [facility] Comment on above: Performed By: #### 8 5499 #### [facility] [address] [place] [address], [place] Potassium [Moles/Vol] 4.4 mmol/L Normal 3.5-5.1 The [facility] Comment on above: Performed By: #### 8 5499 #### [facility] [address] [place] [address], [place] Sodium [Moles/Vol] 134 mmol/L Low 136-145 The [facility] Comment on above: Performed By: #### 8 5499 #### [facility] [address] [place] [address], [place] Urea nitrogen [Mass/Vol] 24 mg/dL Normal 7-25 The [facility] Comment on above: Performed By: #### 8 5499 #### [facility] [address] BNP (B-TYPE NATRIURETIC PEPT PADMAJA)on 06-30-2020 Natriuretic peptide B (Bld) [Mass/Vol] 27 pg/mL Normal 0-100 The [facility] Comment on above: Order Comment: No: D o not add to previous draw Result Comment: Give n the appropriate clinical setting a BNP result of >100 pg/mL indicates congestive heart failure. Performed By: #### 0 0071, 34400 #### [facility] [address] CBC W/DIFFon 06-30-2020 ABS BASOPHILS 0.1 10*3/uL Normal 0.0-0.2 The [facility] Comment on above: Performed By: #### 8 5499 #### [facility] [address] ABS IMM GRANS 0.1 10*3/uL Normal 0.0-0.2 The [facility] Comment on above: Performed By: #### 8 5499 #### [facility] [address] ABS NEUTROPHILS 10.3 10*3/uL High 1.6-7.6 The [facility] Comment on above: Performed By: #### 8 5499 #### [facility] [address] Basophils/100 WBC (Bld) 0.7 % Normal 0.0-1.0 The [facility] Comment on above: Performed By: #### 8 5499 #### [facility] [address] [place] [address], [facility] Eosinophils (Bld) [#/Vol] 0.2 10*3/uL Normal 0.0-0.5 The [facility] Comment on above: Performed By: #### 8 [id number] #### [facility] [address] [place] [address], [facility] Eosinophils/100 WBC (Bld) 1.4 % Normal 0.0-6.0 The [facility] Comment on above: Performed By: #### 8 5499 #### [facility] [address] [place] [address], [facility] Erythrocyte distribution width (RBC) [Ratio] 14.7 % Normal 11.5-15.0 The [facility] Comment on above: Performed By: #### 8 5499 #### [facility] [address] [facility] [place] [address], [facility] Hematocrit (Bld) [Volume fraction] 47.7 % High 36.0-45.0 The [facility] Comment on above: Performed By: #### 8 [id number] #### [facility] [address] [facility] [place] [address], [facility] Hemoglobin (Bld) [Mass/Vol] 15.3 g/dL High 12.0-15.0 The [facility] Comment on above: Performed By: #### 8 5499 #### [facility] [address] [facility] [place] [address], [facility] IMMATURE GRANS 0.6 % Normal 0.0-1.0 The [facility] Comment on above: Performed By: #### 8 [id number] #### [facility] [address] [facility] [place] [place] [address], [facility] Lymphocytes (Bld) [#/Vol] 1.4 10*3/uL Normal 1.2-4.0 The [facility] Comment on above: Performed By: #### 8 [id number] #### [facility] [address] [place] [id number], [facility] Lymphocytes/100 WBC (Bld) 11.0 % Low 20.0-45.0 The [facility] Comment on above: Performed By: #### 8 5499 #### [facility] [address] [facility] [place] [address], [facility] MCH (RBC) [Entitic mass] 28.7 pg Normal 27.0-33.0 The [facility] Comment on above: Performed By: #### 8 5499 #### [facility] [address] [facility] MCHC (RBC) [Mass/Vol] 32.1 g/dL Normal 32.0-35.0 The [facility] Comment on above: Performed By: #### 8 5499 #### [facility] [address] [facility]. [address] MCV (RBC) [Entitic vol] 89.3 fL Normal 82.0-98.0 The [facility] Comment on above: Performed By: #### 8 5499 #### [facility] [address] [facility]. [address] Monocytes (Bld) [#/Vol] 1.0 10*3/uL Normal 0.1-1.0 The [facility] Comment on above: Performed By: #### 8 5499 #### [facility] [address] [facility]. [address] MONOS 7.4 % Normal 5.0-12.0 The [facility] Comment on above: Performed By: #### 8 5499 #### [facility] [address] [facility]. [address] Neutrophils/100 WBC (Bld) 78.9 % High 40.0-72.0 The [facility] Comment on above: Performed By: #### 8 5499 #### [facility] [address] Nucleated RBC/100 WBC (Bld) [Ratio] 0 % Normal 0-0 [facility] Comment on above: Performed By: #### 8 5499 #### [facility] PLAT CNT 315 10*3/uL Normal 150-400 The [facility] Comment on above: Performed By: #### 8 5499 #### [place] [address], [facility] RBC (Bld) [#/Vol] 5.34 10*6/uL High 3.80-5.00 [facility] Comment on above: Performed By: #### 8 5499 #### [facility] [address] [place] [address], [facility] WBC (Bld) [#/Vol] 13.03 10*3/uL High 4.00-10.60 [facility] Comment on above: Performed By: #### 8 5499 #### [address] BRAIN WO CONTRASTon 06-30 CT BRAIN WO CONTRAST [facility] Department of Radiology [address] [place], [place] [phone] Patient Name: MONICA ACOSTA : 1960 Sex: F Age: Race: White Pt. Location: [facility] Patient Status: E Ordered Date: 06/30/2020 [...] achievable Electronically signed: Enio Miles. Transcribed by: [email or web address], User Resident: Electronically Signed by: ENIO MILES @ 06/30/2020 07:52 AM Normal The [facility] Comment on above: Order Comment: Bleed CT CERVICAL SPINE WITHOUT CO NTRASTon 06-30-2020 CT CERVICAL SPINE WITHOUT CONTRAST [facility] Department of Radiology [address] [place] [phone] Patient Name: MONICA ACOSTA : 1960 Sex: F Age: Race: White Pt. Location: [facility] Patient Status: Krystle Ordered Date: 06/30/2020 6:35:00 [...] malalignment. Electronically signed: Enio Miles. Transcribed by: [email or web address], User Resident: Electronically Signed by: ENIO MILES @ 06/30/2020 07:54 AM Normal The [facility] Comment on above: Order Comment: No: D o not add to previous draw CT LUMBAR SPINE WO CONTRASTo n 06-30-2020 CT LUMBAR SPINE WO CONTRAST [facility] Department of Radiology [address] [place] [phone] Patient Name: MONICA ACOSTA : 1960 Sex: F Age: Race: White Pt. Location: [facility] Patient Status: E Ordered Date: 06/30/2020 [...] injury. Electronically signed: Enio Miles. Transcribed by: [email or web address], User Resident: Electronically Signed by: ENIO MILES @ 06/30/2020 07:59 AM Normal The [facility] Comment on above: Order Comment: No: D o not add to previous draw CTA CHESTon 06-30-2020 CTA CHEST [facility] Department of Radiology [address] [place] [phone] Patient Name: MONICA ACOSTA : 1960 Sex: F Age: Race: White Pt. Location: [id number] Patient Status: I Ordered Date: 06/30/2020 3:25:00 PM Completed Date: 06/30/2020 08:04 PM Requesting Provider: NIKKI BELA Attending Provider: ALEXANDER MORILLO Report Copy To: [...] atelectasis. Electronically signed: Richard Clarke. Transcribed by: [email or web address], User Resident: Electronically Signed by: RICHARD CLARKE @ 06/30/2020 08:13 PM Normal The [facility] Comment on above: Order Comment: No: D o not add to previous draw D DIMER TESTon 06-30-2020 D-DIMER TEST 1.78 mcg/mL FEU High 0.27-0.49 [facility] Comment on above: Order Comment: No: D o not add to previous draw Result Comment: D-Di pema values of less than 0.50 ug/ml (FEU) are considered to be a negative predictor of thrombosis. However, the D-Dimer result should be used in conjunction with pretest probability and should not be used alone to diagnose a thrombotic event. Performed By: #### 0 0071, 47946 #### [facility] [address] [place] [address], [facility] HEMOGLOBIN A1Con 06-30-2020 HbA1c (Bld) [Mass fraction] 200 mmol/L Normal [facility] Comment on above: Order Comment: No: D o not add to previous draw Performed By: #### 0 0071, 20472 #### [facility] [address] [place] [address], [facility] HbA1c (Bld) [Mass fraction] 8.6 % High 4.0-6.0 [facility] Comment on above: Order Comment: No: D o not add to previous draw Performed By: #### 0 0071, 77348 #### [facility] [address] [place] [address], [facility] LACTATE BLOODon 06-30-2020 Lactate [Moles/Vol] 1.5 mmol/L Normal 0.5-2.2 [facility] Comment on above: Order Comment: No: D o not add to previous draw Performed By: #### 0 0071, 12149 #### [facility] [address] [place] [address], [facility] MAGNESIUM BLOODon 06-30-2020 Magnesium [Mass/Vol] 1.9 mg/dL Normal 1.9-2.7 The [facility] Comment on above: Order Comment: No: D o not add to previous draw Performed By: #### 0 0071, 86373 #### [facility] [address] [place] [address], [facility] MRI LUMBAR SPINE W WO CONTRA STon 06-30-2020 MRI LUMBAR SPINE W WO CONTRAST [facility] Department of Radiology [address] [place] [id number] Patient Name: MONICA ACOSTA : 1960 Sex: F Age: Race: White Pt. Location: [facility] Patient Status: I Ordered Date: 06/30/2020 [...] changes. Electronically signed: Dom Carbajal. Transcribed by: [email or web address], User Resident: Electronically Signed by: DOM CARBAJAL @ 06/30/2020 11:09 AM Normal The [facility] Comment on above: Order Comment: No: D o not add to previous draw POC GLUCOSE EDon 06-30-2020 Glucose [Mass/Vol] 388 mg/dL High 70-100 The [facility] Comment on above: Performed By: #### 8 5499 #### [facility] [address] [place] [address], [facility] POC GLUCOSE LABon 06-30-2020 Glucose [Mass/Vol] 430 mg/dL High 70-100 [facility] Comment on above: Performed By: #### 8 5499 ####[facility] [place] [address], [place] Glucose [Mass/Vol] 308 mg/dL High 70-100 [facility] Comment on above: Performed By: #### 3 1792 #### [facility] [address] [place] [address], [place] Glucose [Mass/Vol] 348 mg/dL High 70-100 [facility] Comment on above: Performed By: #### 8 5499 #### [facility] [address] [place] [address], [place] PROCALCITONINon 06-30-2020 PROCALCITONIN 0.11 ng/mL High 0.00-0.10 The [facility] Comment on above: Order Comment: No: [...] initial PCT<0.5ng/mL Performed By: #### 0 0071, 16445 #### [facility] [address] [facility] PROTHROMBIN TIMEon 0 INR Coag (PPP) [Relative time] 0.89 {INR} Low 0.91-1.16 [facility] Comment on above: Result Comment: [...] 1995;[id number]. Performed By: #### 8 5499 #### [facility] [address] PT Coag (PPP) [Time] 12.0 s Low 12.3-14.8 [facility] Comment on above: Result Comment: ALL RESULTS MUST BE INTERPRETED WITH RESPECT TO BLOOD DRAWING ARTIFACT OR DILUTION ERROR OF ANTICOAGULANT AT THE TIME OF SAMPLING. Performed By: #### 8 5499 #### [facility] [address] [facility] [place] [address], [facility] TPO ANTIBODY [id number] TPO ANTIBODY 0.8 IU/mL Normal 0.0-9.0 The [facility] Comment on above: Result Comment: Perf ormed By: [employer] [address] [place] [address] Group Captain: Emilia Arrieta MD TROPONIN-Ion 06-30-2020 Troponin I.cardiac [Mass/Vol] 0.01 ng/mL Normal 0.00-0.04 [facility] Comment on above: Order Comment: No: D o not add to previous draw Result Comment: REFE RENCE RANGES: 0.00 - 0.04 ng/ml NORMAL 0.05 - 0.50 ng/ml INDETERMINATE > 0.50 ng/ml CONSISTENT WITH AN M.I. Performed By: #### 0 0071, 92581 #### [facility] [address] [place] [address], [facility] Performed By: #### 8 5499 #### [facility] [address] [place] [address], [facility] TYPE AND SCREENon 06-30-2020 ABO INTERPRETATION A Normal [facility] Comment on above: Performed By: #### 8 5499 #### [facility] [address] [place] [address], [facility] RH INTERPRETATION Positive Normal [facility] Comment on above: Performed By: #### 8 5499 #### [facility] [address] [facility] [place] [place] [address], [facility] LUMBAR SPINE 2 OR 3 VWSon LUMBAR SPINE 2 OR 3 VWS [facility] Department of Radiology [address] [place], [place] [phone] Patient Name: MONICA ACOSTA : 1960 Sex: F Age: Race: White Pt. Location: 84 Patient Status: D Ordered Date: 06/25/2020 3:00:00 [...] reports Electronically signed: Jamie Elizondo. Transcribed by: [email or web address], User Resident: BOGDAN SOTELO Electronically Signed by: JAMIE ELIZONDO @ 06/26/2020 11:06 AM I personally read this/these film(s) with this resident Normal The [facility] Comment on above: Order Comment: No: D o not add to previous draw Vital Signs Date Time Vital Sign Value Performing Clinician Facility 03-14-2025 13:27-0400 Body height 170.2 cm Rudolph Hurt MD Work Phone: [facility] 03-14-2025 13:27-0400 Body mass index (BMI) [Ratio] 28.66 kg/m2 Rudolph Hurt MD Work Phone: [facility] 03-14-2025 13:27-0400 Body temperature 97.11 [degF] Rudolph Hurt MD Work Phone: [facility] 03-14-2025 13:27-0400 Body weight 83.01 kg Rudolph Hurt MD Work Phone: [facility] 03-14-2025 13:27-0400 Diastolic blood pressure 58 mm[Hg] Rudolph Hurt MD Work Phone: [facility] 03-14-2025 13:27-0400 Heart rate 89 /min Rudolph Hurt MD Work Phone: [facility] 03-14-2025 13:27-0400 Respiratory rate 20 /min Rudolph Hurt MD Work Phone: [facility] 03-14-2025 13:27-0400 SaO2% (BldA) [Mass fraction] 95 % Rudolph Hurt MD Work Phone: [facility] 03-14-2025 13:27-0400 Systolic blood pressure 118 mm[Hg] Rudolph Hurt MD Work Phone: [facility] 03-11-2025 12:59-0400 Body height 170.18 cm Rudolph Hurt MD Work Phone: [facility] 03-11-2025 12:59-0400 Body mass index (BMI) [Ratio] 28.5 kg/m2 Rudolph Hurt MD Work Phone: [facility] 03-11-2025 12:59-0400 Body temperature 98.6 [degF] Rudolph Hurt MD Work Phone: [facility] 03-11-2025 12:59-0400 Body weight 82.78 kg Rudolph Hurt MD Work Phone: [facility] 03-11-2025 12:59-0400 Diastolic blood pressure 70 mm[Hg] Rudolph Hurt MD Work Phone: [facility] 03-11-2025 12:59-0400 Heart rate 83 /min Rudolph Hurt MD Work Phone: [facility] 03-11-2025 12:59-0400 Respiratory rate 18 /min Rudolph Hurt MD Work Phone: [facility] 03-11-2025 12:59-0400 SaO2% (BldA) [Mass fraction] 97 % Rudolph Hurt MD Work Phone: [facility] 03-11-2025 12:59-0400 Systolic blood pressure 117 mm[Hg] Rudolph Hurt MD Work Phone: [facility] 01-15-2025 12:06-0400 Body height 170.2 cm Rudolph Hurt MD Work Phone: [facility] 01-15-2025 12:06-0400 Body mass index (BMI) [Ratio] 29.29 kg/m2 Rudolph Hurt MD Work Phone: [facility] 01-15-2025 12:06-0400 Body temperature 96.21 [degF] Rudolph Hurt MD Work Phone: [facility] 01-15-2025 12:06-0400 Body weight 84.82 kg Rudolph Hurt MD Work Phone: [facility] 01-15-2025 12:06-0400 Diastolic blood pressure 70 mm[Hg] Rudolph Hurt MD Work Phone: [facility] 01-15-2025 12:06-0400 Heart rate 88 /min Rudolph Hurt MD Work Phone: [facility] 01-15-2025 12:06-0400 Respiratory rate 20 /min Rudolph Hurt MD Work Phone: [facility] 01-15-2025 12:06-0400 SaO2% (BldA) [Mass fraction] 97 % Rudolph Hurt MD Work Phone: [facility] 01-15-2025 12:06-0400 Systolic blood pressure 140 mm[Hg] Rudolph Hurt MD Work Phone: [facility] 12-31-2024 13:52-0400 Body height 170.2 cm Zeyad Tate MD Work Phone: [facility] 12-31-2024 13:52-0400 Body mass index (BMI) [Ratio] 29.91 kg/m2 Zeyad Tate MD Work Phone: [facility] 12-31-2024 13:52-0400 Body weight 86.64 kg Zeyad Tate MD Work Phone: [facility] 12-31-2024 13:52-0400 Diastolic blood pressure 60 mm[Hg] Zeyad Tate MD Work Phone: [facility] 12-31-2024 13:52-0400 Heart rate 82 /min Zeyad Tate MD Work Phone: [facility] 12-31-2024 13:52-0400 Respiratory rate 18 /min Zeyad Tate MD Work Phone: [facility] 12-31-2024 13:52-0400 SaO2% (BldA) [Mass fraction] 97 % Zeyad Tate MD Work Phone: [facility] 12-31-2024 13:52-0400 Systolic blood pressure 110 mm[Hg] Zeyad Tate MD Work Phone: [facility] 12-10-2024 14:18-0400 Body height 170.2 cm Rudolph Hurt MD Work Phone: [facility] 12-10-2024 14:18-0400 Body mass index (BMI) [Ratio] 29.29 kg/m2 Rudolph Hurt MD Work Phone: [facility] 12-10-2024 14:18-0400 Body temperature 97.11 [degF] Rudolph Hurt MD Work Phone: [facility] 12-10-2024 14:18-0400 Body weight 84.82 kg Rudolph Hurt MD Work Phone: [facility] 12-10-2024 14:18-0400 Diastolic blood pressure 76 mm[Hg] Rudolph Hurt MD Work Phone: [facility] 12-10-2024 14:18-0400 Heart rate 87 /min Rudolph Hurt MD Work Phone: [facility] 12-10-2024 14:18-0400 Respiratory rate 22 /min Rudolph Hurt MD Work Phone: [facility] 12-10-2024 14:18-0400 SaO2% (BldA) [Mass fraction] 95 % Rudolph Hurt MD Work Phone: [facility] 12-10-2024 14:18-0400 Systolic blood pressure 114 mm[Hg] Rudolph Hurt MD Work Phone: [facility] 11-19-2024 13:38-0400 Body height 170.2 cm Collin Saba MD Work Phone: [facility] 11-19-2024 13:38-0400 Body mass index (BMI) [Ratio] 29.12 kg/m2 Collin Saba MD Work Phone: [facility] 11-19-2024 13:38-0400 Body weight 84.37 kg Collin Saba MD Work Phone: [facility] 11-19-2024 13:38-0400 Diastolic blood pressure 64 mm[Hg] Collin Saba MD Work Phone: [facility] 11-19-2024 13:38-0400 Respiratory rate 18 /min Collin Saba MD Work Phone: [facility] 11-19-2024 13:38-0400 Systolic blood pressure 114 mm[Hg] Collin Saba MD Work Phone: [facility] 09-19-2024 11:19-0500 Body height 170.2 cm Rudolph Hurt MD Work Phone: [facility] 09-19-2024 11:19-0500 Body mass index (BMI) [Ratio] 29.76 kg/m2 Rudolph Hurt MD Work Phone: [facility] 09-19-2024 11:19-0500 Body temperature 96.21 [degF] Rudolph Hurt MD Work Phone: [facility] 09-19-2024 11:19-0500 Body weight 86.18 kg Rudolph Hurt MD Work Phone: [facility] 09-19-2024 11:19-0500 Diastolic blood pressure 66 mm[Hg] Rudolph Hurt MD Work Phone: [facility] 09-19-2024 11:19-0500 Heart rate 102 /min Rudolph uHrt MD Work Phone: [facility] 09-19-2024 11:19-0500 Respiratory rate 22 /min Rudolph Hurt MD Work Phone: [facility] 09-19-2024 11:19-0500 SaO2% (BldA) [Mass fraction] 91 % Rudolph Hurt MD Work Phone: [facility] 09-19-2024 11:19-0500 Systolic blood pressure 124 mm[Hg] Rudolph Hurt MD Work Phone: [facility] 08-21-2024 13:37-0500 Body height 170.2 cm Zeyad Tate MD Work Phone: [facility] 08-21-2024 13:37-0500 Body mass index (BMI) [Ratio] 30.7 kg/m2 Zeyad Tate MD Work Phone: [facility] 08-21-2024 13:37-0500 Body weight 88.91 kg Zeyad Tate MD Work Phone: [facility] 08-21-2024 13:37-0500 Diastolic blood pressure 66 mm[Hg] Zeyad Tate MD Work Phone: [facility] 08-21-2024 13:37-0500 Heart rate 83 /min Zeyad Tate MD Work Phone: [facility] 08-21-2024 13:37-0500 Respiratory rate 18 /min Zeyad Tate MD Work Phone: [facility] 08-21-2024 13:37-0500 Systolic blood pressure 100 mm[Hg] Zeyad Tate MD Work Phone: [facility] 04-13-2024 11:43-0400 Body height 170.2 cm Zenemanuel Cornejothao DO Work Phone: [facility] 04-13-2024 11:43-0400 Body mass index (BMI) [Ratio] 28.66 kg/m2 Zen Furlong DO Work Phone: [facility] 04-13-2024 11:43-0400 Body temperature 98.01 [degF] Zen Chantallong DO Work Phone: [facility] 04-13-2024 11:43-0400 Body weight 83.01 kg Zen Furlong DO Work Phone: [facility] 04-13-2024 11:43-0400 Diastolic blood pressure 60 mm[Hg] Zen Furlong DO Work Phone: [facility] 04-13-2024 11:43-0400 Heart rate 88 /min Zen Furlong DO Work Phone: [facility] 04-13-2024 11:43-0400 SaO2% (BldA) [Mass fraction] 97 % Zen Furlong DO Work Phone: [facility] 04-13-2024 11:43-0400 Systolic blood pressure 100 mm[Hg] Zen Furlong DO Work Phone: [facility] 03-26-2024 13:20-0400 Body height 170.2 cm Zen Furlong DO Work Phone: [facility] 03-26-2024 13:20-0400 Body mass index (BMI) [Ratio] 28.72 kg/m2 Zen Furlong DO Work Phone: [facility] 03-26-2024 13:20-0400 Body temperature 97.9 [degF] Zen Furlong DO Work Phone: [facility] 03-26-2024 13:20-0400 Body weight 83.19 kg Zen Furlong DO Work Phone: [facility] 03-26-2024 13:20-0400 Diastolic blood pressure 60 mm[Hg] Zen Furlong DO Work Phone: [facility] 03-26-2024 13:20-0400 Heart rate 81 /min Zen Furlong DO Work Phone: [facility] 03-26-2024 13:20-0400 SaO2% (BldA) [Mass fraction] 97 % Zen Furlong DO Work Phone: [facility] 03-26-2024 13:20-0400 Systolic blood pressure 110 mm[Hg] Zen Furlong DO Work Phone: [facility] 02-09-2024 16:28-0400 Body height 170.2 cm Zen Furlong DO Work Phone: [facility] 02-09-2024 16:28-0400 Body mass index (BMI) [Ratio] 28.33 kg/m2 Zen Furlong DO Work Phone: [facility] 02-09-2024 16:28-0400 Body temperature 98.2 [degF] Zen Furlong DO Work Phone: [facility] 02-09-2024 16:28-0400 Body weight 82.06 kg Zen Furlong DO Work Phone: [facility] 02-09-2024 16:28-0400 Diastolic blood pressure 60 mm[Hg] Zen Furlong DO Work Phone: [facility] 02-09-2024 16:28-0400 Heart rate 84 /min Zen Furlong DO Work Phone: [facility] 02-09-2024 16:28-0400 Respiratory rate 18 /min Zen Furlong DO Work Phone: [facility] 02-09-2024 16:28-0400 SaO2% (BldA) [Mass fraction] 95 % Zen Furlong DO Work Phone: [facility] 02-09-2024 16:28-0400 Systolic blood pressure 110 mm[Hg] Zen Furlong DO Work Phone: [facility] 12-05-2023 12:52-0400 Body height 170.2 cm Demetra Porter BECAC Work Phone: [facility] 12-05-2023 12:52-0400 Body mass index (BMI) [Ratio] 28.16 kg/m2 Demetra DUMONTASPHALT TAMPER [facility] 12-05-2023 12:52-0400 Body temperature 97.59 [degF] Demetra DUMONTASPHALT TAMPER Work Phone: [facility] 12-05-2023 12:52-0400 Body weight 81.56 kg Demetra DUMONTASPHALT TAMPER [facility] 12-05-2023 12:52-0400 Diastolic blood pressure 58 mm[Hg] Demetra DUMONTASPHALT TAMPER Work [facility]: [facility] 12-05-2023 12:52-0400 Heart rate 84 /min Demetra DUMONTASPHALT TAMPER [facility] 12-05-2023 12:52-0400 Respiratory rate 18 /min Demetra DUMONTASPHALT TAMPER Work [facility] 12-05-2023 12:52-0400 SaO2% (BldA) [Mass fraction] 98 % Demetra DUMONTASPHALT TAMPER Work [facility] 12-05-2023 12:52-0400 Systolic blood pressure 96 mm[Hg] Demetra DUMONTASPHALT TAMPER Work Phone: [employer] 07-27-2021 12:15-0500 Body height 170.18 cm Veronica Ginty Other [employer] Other 07-27-2021 12:15-0500 Body mass index (BMI) [Ratio] 27.88 kg/m2 Veronica Ginty Other [employer] Other 07-27-2021 12:15-0500 Body temperature 96 [degF] Veronica Ginty Other [employer] Other 07-27-2021 12:15-0500 Body weight 80.74 kg Veronica Mcneill Other [employer] Other 07-27-2021 12:15-0500 SaO2% (BldA) [Mass fraction] 96 % Veronica Mcneill Other [employer] Other Encounters Encounter Date Encounter Type Care Provider Facility Start: 05-08-2025 End: 05-08-2025 ambulatory [facility] Start: 03-14-2025 End: 03-14-2025 Og Hurt MD Work Phone: [facility] Start: 03-14-2025 End: 03-14-2025 Og Hurt MD Work Phone: [facility] Start: 03-14-2025 End: 03-14-2025 Office outpatient visit 25 minutes Rudolph Hurt MD Work Phone: [facility] Comment on above: MDD (major depressiv e disorder), recurrent episode, moderate (HCC) (Primary Dx); Type I diabetes mellitus with polyneuropathy (HCC); Rheumatoid arthritis involving multiple sites with positive rheumatoid factor (HCC); Type 1 diabetes mellitus with hyperglycemia (HCC); POTS (postural orthostatic tachycardia syndrome); 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 Start: 03-14-2025 End: 03-14-2025 ambulatory RUDOLPH HURT Not Available Start: 03-11-2025 End: 03-11-2025 ambulatory Rudolph Hurt MD Work Phone: [facility] Work Phone: Start: 03-11-2025 End: 03-11-2025 Patient encounter procedure Silvia Blank [employer] [facility] Work Phone: Start: 02-25-2025 End: 02-26-2025 Refill Rudolph Hurt MD Work Phone: [facility] Comment on above: Coronary artery dise ase involving holy cross coronary artery of holy cross heart without angina pectoris (Primary Dx); Rheumatoid arthritis involving multiple sites with positive rheumatoid factor (HCC) Start: 01-26-2025 End: 01-29-2025 Refill Rudolph Hurt MD Work Phone: [facility] Comment on above: POTS (postural ortho static [...] 25 minutes Rudolph Hurt MD Work Phone: [facility] Comment on above: Chest pain at rest ( Primary Dx); SOB (shortness of breath) on exertion; 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 (CMS/HCC); Hypersomnia Start: 01-15-2025 End: 01-15-2025 ambulatory RUDOLPH HURT Not Available Start: 12-31-2024 End: 12-31-2024 Office outpatient visit 40 minutes Zeyad Tate MD Work Phone: [facility] Comment on above: Type 1 diabetes ciara itus with hyperglycemia (HCC) (CMS/HCC) (Primary Dx); Essential (primary) hypertension (CMS/HCC); Vitamin D deficiency, unspecified; Dietary counseling and surveillance; Mixed hyperlipidemia (CMS/HCC); Presence of insulin pump (external) (internal); residential (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 (CMS/HCC); Encounter for fitting or adjustment of insulin pump Start: 12-31-2024 End: 12-31-2024 Bamboo flowsheet Zeyad Tate MD Work Phone: [facility] Start: 12-31-2024 End: 12-31-2024 Bamboo flowsaneta Tate MD Work Phone: [facility] Start: 12-31-2024 End: 12-31-2024 ambulatory ZEYAD TATE Not Available Start: 12-27-2024 End: 12-27-2024 Aubreyill Rudolph Hurt MD Work Phone: [facility] Comment on above: Rheumatoid arthritis involving multiple sites with positive rheumatoid factor (CMS/HCC) Start: 12-10-2024 End: 12-10-2024 Office outpatient visit 25 minutes Rudolph Hurt MD Work Phone: [facility] Comment on above: Type I diabetes ciara itus with polyneuropathy (CMS/HCC) (Primary Dx); Type 1 diabetes mellitus with hyperglycemia (HCC) (CMS/HCC); POTS (postural orthostatic tachycardia syndrome); Rheumatoid arthritis involving multiple sites with positive rheumatoid factor (CMS/HCC); 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 Work Phone: Start: 12-06-2024 End: 12-06-2024 Departed Referred Zen Flores DO Work Phone: [facility] Start: 12-05-2024 End: 12-06-2024 Clinisync Result [...] Refill Rudolph Hurt MD Work Phone: [facility] Comment on above: Rheumatoid arthritis involving multiple sites with positive rheumatoid factor (CMS/HCC) Start: 11-30-2024 End: 11-30-2024 Clinisync Result Encounter Generic External Data Provider [facility] External Department Unsolicited Start: 11-30-2024 End: 11-30-2024 Clinisync Result Encounter Generic External Data Provider [facility] External Department Unsolicited Start: 11-30-2024 End: 11-30-2024 ambulatory [facility] Start: 11-30-2024 End: 11-30-2024 Encounter for preprocedural cardiovascular examination [facility] Start: 11-19-2024 End: 11-19-2024 ambulatory [facility] Start: 11-19-2024 End: 11-19-2024 Office consultation new/estab patient 80 min Collin Saba MD Work Phone: [facility] Comment on above: Rheumatoid arthritis involving multiple sites, unspecified whether rheumatoid factor present ([facility]) (Primary Dx); Long-term use of Plaquenil; Long-term use of leflunomide therapy Start: 11-19-2024 End: 11-19-2024 ambulatory COLLINKATLYN SULLIVANAFA [facility] Start: 11-12-2024 End: 11-12-2024 Refill Rudolph Hurt MD Work Phone: [facility] Comment on above: Rheumatoid arthritis involving multiple sites with positive rheumatoid factor (CMS/HCC) Start: 10-19-2024 End: 10-19-2024 Refill Rudolph Hurt MD Work Phone: [facility] Comment on above: Rheumatoid arthritis involving multiple sites with positive rheumatoid factor (CMS/HCC) Start: 10-15-2024 End: 10-15-2024 ambulatory [facility] Start: 09-19-2024 End: 09-19-2024 Bamboo flowsheet [...] with polyneuropathy (CMS/HCC); 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 (CMS/HCC); PAD (peripheral artery disease) (CMS/HCC); POTS (postural orthostatic tachycardia syndrome); Type 1 diabetes mellitus with other circulatory complications (CMS/HCC); Type 1 diabetes mellitus with hyperglycemia (HCC) (CMS/HCC); Encounter for long-term (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 medications; Dyslipidemia (CMS/HCC); residential (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 (CMS/HCC) Start: 09-19-2024 End: 09-19-2024 ambulatory RUDLOPH HURT Not Available Start: 08-21-2024 End: 08-21-2024 Bamboo flowsheet Zeyad Tate MD Work Phone: [facility] Start: 08-21-2024 End: 08-21-2024 Bamboo flowsheet Zeyad Tate MD Work Phone: [facility] Start: 08-21-2024 End: 08-21-2024 Office outpatient new 60 minutes Zeyad Tate MD Work Phone: [facility] Comment on above: Type 1 diabetes ciara itus with hyperglycemia (HCC) (CMS/HCC) (Primary Dx); Essential (primary) hypertension (CMS/HCC); Vitamin D deficiency, unspecified; Dietary counseling and surveillance; Mixed hyperlipidemia (CMS/HCC); Presence of insulin pump (external) (internal); residential (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 (CMS/HCC); Encounter for fitting or adjustment of insulin pump Start: 08-21-2024 End: 08-21-2024 ambulatory ZEYAD TATE Not Available Start: 08-13-2024 End: 08-13-2024 ambulatory [facility] Start: 07-09-2024 End: 07-09-2024 ambulatory [facility] Start: 06-11-2024 End: 06-11-2024 ambulatory [facility] Start: 05-14-2024 End: 05-14-2024 ambulatory [facility] Start: 04-30-2024 End: 05-02-2024 Telephone encounter [facility] Start: 04-16-2024 End: 04-16-2024 Orders Only Zen Flores DO Work Phone: [facility] Start: 04-13-2024 End: 04-13-2024 ambulatory ZEN FLORES [facility] Start: 04-13-2024 End: 04-13-2024 Office outpatient visit 25 minutes Zen Flores DO Work Phone: [facility] Comment on above: Stage 2 chronic kidn ey disease due to type 1 diabetes mellitus ([facility]) (Primary Dx); Rheumatoid arthritis involving multiple sites, unspecified whether rheumatoid factor present ([facility] 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 ([facility]); Diabetic polyneuropathy associated with type 1 diabetes mellitus ([facility]); Hyperkalemia; Compression fracture of L1 vertebra, sequela Start: 04-13-2024 End: 04-13-2024 ambulatory [facility] Start: 04-03-2024 End: 04-03-2024 Orders Only Zen Borden DO Work Phone: [facility] Comment on above: Medication monitorin g encounter (Primary Dx); Compression fracture of L1 vertebra, sequela; Rheumatoid arthritis involving multiple sites, unspecified whether rheumatoid factor present ([facility]) Start: 04-03-2024 End: 04-03-2024 Refill Radha Ohara [employer] Work Phone: [facility] Start: 03-30-2024 End: 04-02-2024 Telephone encounter Ana Edwards CMA [facility] Start: 03-29-2024 End: 03-29-2024 Telephone encounter Zen Borden DO Work Phone: [facility] Start: 03-27-2024 End: 03-27-2024 ambulatory [facility] Start: 03-27-2024 End: 03-29-2024 ambulatory [facility] Comment on above: Rheumatoid arthritis involving multiple sites, unspecified whether rheumatoid factor present ([facility]) Start: 03-26-2024 End: 03-26-2024 ambulatory [facility] Start: 03-26-2024 End: 03-26-2024 Office outpatient visit 25 minutes Zen Flores DO Work Phone: [facility] Comment on above: Compression fracture of L1 vertebra, sequela (Primary Dx); Rheumatoid arthritis involving multiple sites, unspecified whether rheumatoid factor present ([facility]); Other fatigue; Medication monitoring encounter; Primary hypertension; Type 1 diabetes mellitus with diabetic polyneuropathy ([facility]); Overweight Start: 03-26-[address] [facility] Start: 03-20-2024 End: 03-20-2024 Refill Zen Bordenng DO Work Phone: [facility] Start: 02-27-2024 End: 02-27-2024 [...] initial encounter Start: 02-09-2024 End: 02-09-2024 ambulatory [facility] Start: 02-07-2024 End: 02-09-2024 Telephone encounter Demetra aMcario [place] Work Phone: [facility] Start: 01-27-2024 End: 01-27-2024 Orders Only Zen Bordenng DO Work Phone: [facility] Start: 01-26-2024 End: 01-27-2024 Refill Demetra Macario [place]-ASPHALT TAMPER Work Phone: [facility] Comment on above: Rheumatoid arthritis involving multiple sites, unspecified whether rheumatoid factor present ([facility]) Start: 12-26-2023 End: 12-27-2023 Refill Zen Bordenng DO Work Phone: [facility] Start: 12-08-2023 Refill Dario Cai Sarahallanchar Barker Work [facility]: [facility] Start: 12-05-2023 End: 12-05-2023 ambulatory [facility] Thea PORTER [facility] Start: 12-05-2023 End: 12-05-2023 Office outpatient visit 25 minutes Demetra Porter [employer] Work Phone: [facility] Comment on above: Rheumatoid arthritis involving multiple sites, unspecified whether rheumatoid factor present ([facility]) (Primary Dx); Status post partial amputation of left foot ([facility] Diabetic polyneuropathy associated with type 2 diabetes mellitus ([facility]); Severe depression ([facility]); PAD (peripheral artery disease) ([facility]); Compression fracture of L1 vertebra with routine healing, subsequent encounter; Mixed hyperlipidemia Start: 12-05-2023 End: 12-05-2023 ambulatory RICH [facility] Start: 11-29-2023 Orders Only Demetra Porter [employer] Work Phone: [facility] Start: 11-15-2023 Orders Only Demetra Porter [employer] Work Phone: [facility] Start: 11-14-2023 Refill Zen Kemar Furlo ng DO Work Phone: [facility] Comment on above: Compression fracture of L1 vertebra with routine healing, subsequent encounter Start: 10-31-2023 Refill Zen G Furlo ng DO Work Phone: [facility]oj[facility] Cai Troup [facility] Comment on above: Compression fracture of L1 vertebra with routine healing, subsequent encounter Start: 10-16-2023 Refill Zen G Furlo ng DO Work Phone: [facility] Comment on above: Compression fracture of L1 vertebra with routine healing, subsequent encounter Start: 10-04-2023 Refill Zen G Furlo ng DO Work Phone: Yojana Cai Troup [facility] - Medical Oncology Comment on above: Compression fracture of L1 vertebra with routine healing, subsequent encounter Start: 09-12-2023 Refill Zen Kemar Michi burns DO Work Phone: Yojana Cai Troup [facility] - Medical Oncology Comment on above: Compression fracture of L1 vertebra with routine healing, subsequent encounter Start: 08-30-2023 Orders Only Zen burns DO Work Phone: [facility] Comment on above: Compression fracture of L1 vertebra with routine healing, subsequent encounter Start: 10-17-2022 End: 10-17-[address] ZEN FLORES Facility:H1 Start: 08-17-2022 ambulatory FARIBA CARRERA Facilit y:H1 Start: 08-04-2022 End: 08-05-[address] ZEN FLORES Facility:[facility]1 Start: 06-15-2022 End: 06-16-2022 ambulatory FARIBA CARRERA Facility:H1 Start: 05-31-2022 Encounter for preprocedural cardiovascular examination [facility] Jero BRANNON [facility] Start: 05-31-2022 Encounter for preprocedural laboratory examination [facility] Jero [facility] Start: 05-31-2022 End: 06-03-2022 ambulatory [...] Facility:H1 Start: 04-16-2022 End: 04-17-2022 ambulatory RADHA FELIXCHRISTINA Facility:H1 Start: 04-09-2022 End: 04-10-2022 ambulatory RADHA BRANNON Facility:[facility]1 Start: 04-01-2022 End: 04-02-2022 ambulatory RADHA FELIXCHRISTINA Facility:[facility]1 Start: 03-25-2022 End: 03-26-2022 ambulatory RADHA FELIXCHRISTINA Facility:[facility]1 Start: 03-18-2022 End: 03-19-2022 ambulatory RADHA FELIXCHRISTINA Facility:[facility]1 Start: 03-14-2022 Encounter for preprocedural laboratory examination RADHA BRANNON [facility] Start: 03-13-2022 End: 03-15-2022 Evaluation and management [...] 07-27-2021 End: 07-27-2021 ambulatory Veronica Mcneill Other [employer] Other Start: 07-27-2021 Office outpatient vi sit 15 minutes Veronica Ginty [facility] Start: 07-17-2020 End: 08-01-2020 Patient encounter procedure REFERRED SELF Facility:[facility] Start: 06-30-2020 End: 07-14-2020 Evaluation and management of inpatient REFERRED SELF Facility:[facility] Procedures Date Procedure Procedure Detail [...] W/O COUM Generic External Data Provider Start: 11-19-2024 Cyclic citrullinated peptide antibody DEMETRA PORTER Comment on above: Result Comment: Interpretation-------- <3 Negative >=3 Positive Performed By: #### 2 [id number], [id number] #### [facility] ([id number]) [address] [place] [address] Start: 08-21-2024 Gluc bld gluc mntr d ev cleared fda spec home use Zeyad Tate MD Work Phone: Start: 04-13-2024 Adult depression screening assessment Zenemanuel Cornejothao DO Work Phone: Start: 03-26-2024 Adult depression screening assessment Zenemanuel Cornejothao DO Work Phone: Start: 02-09-2024 Follow-up visit Follow-up ZEN FLORES Start: 02-09-2024 Adult depression screening assessment Demetra HUDSON Work Phone: Start: 12-05-2023 Adult depression screening assessment Demetra HUDSON Work Phone: Start: 07-12-2023 Adult depression screening [...] of cholecystectomy History of cholecystectomy Zen Flores [employer] Work Phone: Start: 05-21-2022 History of coronary artery bypass grafting History of coronary artery bypass surgery Zen Flores [employer] Work Phone: Start: 05-21-2022 History of placement of stent for coronary artery disease History of coronary artery stent placement Zen Flores [employer] Work Phone: Start: 05-05-2022 Microscopic examinat ion of blood, culture RADHA BRANNON Comment on above: Performed By: #### B [id number] ####[facility] [id number] [id number] Clement Start: 03-11-2022 Detachment at Left F [...] WITH SYNTH SUB, PERC APPROACH CHILANGO Carvajal RAGHAV Start: 06-30-2020 Antibody screen REFERRE D SELF Comment on above: Performed By: #### [id number] #### [facility] [address] Plan of Treatment Date Care Activity Detail Author Start: 09-17-2029 DTaP,Tdap and Td Vaccines (2 - Td or Tdap) DTaP,Tdap and Td Vaccines (2 - Td or Tdap) [facility] Start: 11-19-2025 Adult BMI Screening Adult BMI Screening [facility] Start: 09-19-2025 Screening for malignant neoplasm of breast Mammogram [facility] Comment on above: Postponed from 1999 (Patient Refus ed) Start: 09-19-2025 Screening for malignant neoplasm of colon Colorectal Cancer Screening [facility] Comment on above: Postponed from 1959 (Patient Refus ed) Start: 09-16-2025 End: 09-16-2025 Patient encounter procedure 09/16/2025 1:15 PM EST Office Visit [facility] [address] [place] [address] Rudolph Hurt MD [address] [place] [address] [facility] Start: 07-02-2025 Hemoglobin A1c measurement Diabetes: Hemoglobin A1C [facility] Start: 06-11-2025 Pneumococcal Vaccine: 65+ Years (3 of 3 - PCV20 or PCV21) Pneumococcal Vaccine: 65+ Years (3 of 3 - PCV20 or PCV21) [facility] Start: 05-06-2025 Influenza vaccination [facility] Start: 04-13-2025 Adult BMI Screening Adult BMI Screening [facility] Start: 04-13-2025 Depression Screening Depression Screening [facility] Start: 04-13-2025 Tobacco Screening Tobacco Screening [facility] Start: 04-01-2025 End: 04-01-2025 Patient encounter procedure 04/01/2025 2:10 PM EDT [facility] [address] [place] [id number] Zeyad Tate MD [address] [place] [address] LOCATED WITHIN [facility] Start: 03-27-2025 Urine screening for protein Diabetes: Urine Protein Screening [facility] Start: 03-26-2025 Adult BMI Screening Adult BMI Screening [facility] Start: 03-26-2025 Depression Screening Depression Screening [facility] Start: 03-26-2025 Tobacco Screening Tobacco Screening [facility] Start: 03-14-2025 End: 03-14-2025 Patient encounter procedure [facility] Comment on above: Arrived Start: 02-19-2025 Hemoglobin A1c measurement Diabetes: Hemoglobin A1C [facility] Start: 02-09-2025 Screening for malignant neoplasm of colon Colonoscopy [facility] Comment on above: Postponed from 11/19/2022 (Patient Refus ed) Start: 02-09-2025 Tobacco Screening Tobacco Screening [facility] Start: 02-08-2025 Adult BMI Screening Adult BMI Screening [facility] Start: 02-08-2025 Depression Screening Depression Screening [facility] Start: 02-08-2025 Tobacco Screening Tobacco Screening [facility] Start: 01-15-2025 End: 01-15-2027 NM Heart Perfusion W single state of exercise Stress test with myocardial perfusion Cardiac Nuclear Medicine Routine Chest pain at rest 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 ([facility]/HCC) Expected: 01/15/2025 (Approximate), Expires: 01/15/2027 [facility] Comment on above: Expected: 01/15/2025 (Approximate), Expi res: 01/15/2027 Start: 12-31-2024 End: 12-31-2024 Patient encounter procedure LOCATED WITHIN [facility] Comment on above: Type 1 diabetes mellitus with hyperglyce matias (HCC) (CMS/HCC) Start: 12-20-2024 End: 11-19-2025 CBC W Auto Differential panel - Blood CBC auto differential Lab Routine Rheumatoid arthritis involving multiple sites, unspecified whether rheumatoid factor present ([facility]) Long-term use of leflunomide therapy Expected: 12/20/2024 (Approximate), Expires: 11/19/2025 [facility] Comment on above: Expected: 12/20/2024 (Approximate), Expi res: 11/19/2025 Start: 12-20-2024 End: 11-19-2025 Comprehensive metabolic 2000 panel - Serum or Plasma Comprehensive metabolic panel Lab Routine Rheumatoid arthritis involving multiple sites, unspecified whether rheumatoid factor present ([facility]) Long-term use of leflunomide therapy Expected: 12/20/2024 (Approximate), Expires: 11/19/2025 [facility] Comment on above: Expected: 12/20/2024 (Approximate), Expi res: 11/19/2025 Start: 12-19-2024 End: 12-19-2024 Patient encounter procedure 12/19/2024 3:00 PM EDT Office Visit [facility], A Department of [facility] [address] [address] Collin Saba MD [address] [address] [facility] Department of [facility] Start: 12-11-2024 End: 12-11-2024 Patient encounter procedure 12/11/2024 1:50 PM EDT Office Visit [facility] [address] [place] [address] Zeyad Tate MD [address] [place] [address] LOCATED WITHIN [facility] Start: 12-10-2024 End: 12-10-2024 Patient encounter procedure [facility] Comment on above: Arrived Start: 12-04-2024 Adult BMI Screening Adult BMI Screening [facility] Start: 12-04-2024 Depression Screening Depression Screening [facility] Start: 12-04-2024 Tobacco Screening Tobacco Screening [facility] Start: 12-03-2024 End: 11-19-2025 CBC W Auto Differential panel - Blood CBC auto differential Lab Routine Rheumatoid arthritis involving multiple sites, unspecified whether rheumatoid factor present ([facility]) Long-term use of leflunomide therapy Expected: 12/03/2024 (Approximate), Expires: 11/19/2025 [facility] Comment on above: Expected: 12/03/2024 (Approximate), Expi res: 11/19/2025 Start: 12-03-2024 End: 11-19-2025 Comprehensive metabolic 2000 panel - Serum or Plasma Comprehensive metabolic panel Lab Routine Rheumatoid arthritis involving multiple sites, unspecified whether rheumatoid factor present ([facility]) Long-term use of leflunomide therapy Expected: 12/03/2024 (Approximate), Expires: 11/19/2025 [facility] Comment on above: Expected: 12/03/2024 (Approximate), Expi res: 11/19/2025 Start: 11-27-2024 End: 11-27-2024 Patient encounter procedure 11/27/2024 1:40 PM EDT [facility] [address] [place] [address] Zeyad Tate MD [address] [place] [address] [facility] Start: 11-19-2024 End: 11-19-2025 C-reactive protein C-reactive protein Lab Routine Rheumatoid arthritis involving multiple sites, unspecified whether rheumatoid factor present ([facility]) Expected: 11/19/2024 (Approximate), Expires: 11/19/2025 [facility] Comment on above: Expected: 11/19/2024 (Approximate), Expi res: 11/19/2025 Start: 11-19-2024 End: 11-19-2025 CBC W Auto Differential panel - Blood [facility] Comment on above: Expected: 11/19/2024 (Approximate), Expi res: 11/19/2025 Start: 11-19-2024 End: 11-19-2025 Comprehensive metabolic 2000 panel - Serum or Plasma [facility] Comment on above: Expected: 11/19/2024 (Approximate), Expi res: 11/19/2025 Start: 11-19-2024 End: 11-19-2025 Cyanocobalamin vitamin b-12 Vitamin B12 Lab Routine Rheumatoid arthritis involving multiple sites, unspecified whether rheumatoid factor present ([facility]) Expected: 11/19/2024, Expires: 11/19/2025 [facility] Comment on above: Expected: 11/19/2024, Expires: Start: 11-19-2024 End: 11-19-2025 Erythrocyte sedimentation rate Erythrocyte Sedimentation Rate (ESR) Lab Routine Rheumatoid arthritis involving multiple sites, unspecified whether rheumatoid factor present ([facility]) Expected: 11/19/2024 (Approximate), Expires: 11/19/2025 [facility] Comment on above: Expected: 11/19/2024 (Approximate), Expi res: 11/19/2025 Start: 11-19-2024 Hemoglobin A1c measurement Diabetes: Hemoglobin A1C [facility] Start: 11-19-2024 End: 11-19-2025 Thyrotropin [Units/volume] in Serum or Plasma [facility] Comment on above: Expected: 11/19/2024, Expires: Start: 11-19-2024 End: 11-19-2025 Vitamin D 25 hydroxy Vitamin D 25 hydroxy Lab Routine Rheumatoid arthritis involving multiple sites, unspecified whether rheumatoid factor present ([facility]) Expected: 11/19/2024, Expires: 11/19/2025 [employer] Work Phone: Comment on above: Expected: 11/19/2024, Expires: Start: 11-19-2024 End: 11-19-2025 XR Bones Limited Survey Views [facility] Comment on above: Expected: 11/19/2024, Expires: Start: 11-19-2024 End: 11-19-2025 XR Chest PA and Lateral [facility] Comment on above: Expected: 11/19/2024, Expires: Start: 09-19-2024 End: 09-19-2025 Basic metabolic 1998 panel - Serum or Plasma Basic metabolic panel Lab Routine Encounter for long-term (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 medications Expected: 09/19/2024 (Approximate), Expires: 09/19/2025 [facility] Comment on above: Expected: 09/19/2024 (Approximate), Expi res: 09/19/2025 Start: 09-19-2024 End: 09-19-2025 CBC W Auto Differential panel - Blood CBC and differential Lab Routine Encounter for long-term (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 medications Expected: 09/19/2024 (Approximate), Expires: 09/19/2025 [facility] Comment on above: Expected: 09/19/2024 (Approximate), Expi res: 09/19/2025 Start: 09-19-2024 End: 09-19-2025 Erythrocyte sedimentation rate Sedimentation rate, automated Lab Routine Rheumatoid arthritis involving multiple sites with positive rheumatoid factor (CMS/HCC) Expected: 09/19/2024 (Approximate), Expires: 09/19/2025 [facility] Comment on above: Expected: 09/19/2024 (Approximate), Expi res: 09/19/2025 Start: 09-19-2024 End: 09-19-2025 Hepatic function 2000 panel - Serum or Plasma Hepatic function panel Lab Routine Encounter for long-term (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 medications Expected: 09/19/2024 (Approximate), Expires: 09/19/2025 [facility] Comment on above: Expected: 09/19/2024 (Approximate), Expi res: 09/19/2025 Start: 09-19-2024 End: 09-19-2025 Lipid 1996 panel - Serum or Plasma Lipid panel Lab Routine Dyslipidemia (CMS/HCC) Expected: 09/19/2024 (Approximate), Expires: 09/19/2025 [facility] Comment on above: Expected: 09/19/2024 (Approximate), Expi res: 09/19/2025 Start: 09-19-2024 End: 09-19-2025 Rheumatoid factor [Units/volume] in Serum or Plasma Rheumatoid factor Lab Routine Rheumatoid arthritis involving multiple sites with positive rheumatoid factor (CMS/HCC) Expected: 09/19/2024 (Approximate), Expires: 09/19/2025 [facility] Work Phone: Comment on above: Expected: 09/19/2024 (Approximate), Expi res: 09/19/2025 Start: 09-19-2024 End: 09-19-2024 Patient encounter procedure 09/19/2024 11:30 AM EST Office Visit [facility] [address] [place] [address] Rudolph Hurt MD [address] [place] [id number] Arrived [facility] Comment on above: Arrived Start: 08-21-2024 End: 08-21-2024 Patient encounter procedure 08/21/2024 1:20 PM EST Office Visit LOCATED [facility]IN [facility] [address] [place] [address] Zeyad Tate MD [address] [place] [address] Arrived LOCATED [facility] Comment on above: Arrived Start: 07-12-2024 Adult BMI Screening Adult BMI Screening [facility] Start: 07-12-2024 Depression Screening Depression Screening [facility] Start: 07-12-2024 Medicare Annual Wellness (AWV) Medicare Annual Wellness (AWV) [facility] Start: 07-12-2024 Tobacco Screening Tobacco Screening [facility] Start: 06-30-2024 Glaucoma screening Diabetic Ophthalmology Exam [facility] Start: 05-06-2024 Influenza vaccination [facility] Start: 04-17-2024 End: 04-17-2024 Patient encounter procedure 04/17/2024 11:45 AM EDT Office Visit [facility] [address] [id number] Collin Saba MD [address] [address] [facility] Start: 04-13-2024 End: 04-13-2024 Patient encounter procedure 04/13/2024 11:30 AM EDT [facility] [address] [place] [address] Zen Flores, DO [address] [place] [address] [facility] Start: 03-26-2024 End: 03-26-2024 Patient encounter procedure 03/26/2024 1:30 PM EDT [facility] [address] [place] [address] Zen Flores, DO [address] [place] [address] [facility] Start: 03-19-2024 End: 03-19-2024 Patient encounter procedure 03/19/2024 2:15 PM EDT [facility] [address] [place] [address] Zen Flores, DO [address] [place] [address] [facility] Start: 11-20-2023 Screening for malignant neoplasm of breast Mammogram [facility] Comment on above: Postponed from 11/19/2022 (Patient Refus ed) Start: 11-20-2023 Screening for malignant neoplasm of colon Colonoscopy [facility] Comment on above: Postponed from 11/19/2022 (Patient Refus ed) Start: 11-10-2023 End: 11-10-2023 Patient encounter procedure 11/10/2023 1:50 PM EST Office Visit [facility] [address] [place] [address] Zen Flores, DO [address], [facility] [place] [address] [facility] Start: 09-13-2023 Diabetic foot examination Diabetic Foot Exam [facility] Start: 11-19-2022 Screening for malignant neoplasm of breast Mammogram [facility] Start: 11-19-2022 Screening for malignant neoplasm of colon Colonoscopy [facility] Start: 09-30-2020 Hemoglobin A1c measurement Diabetes: Hemoglobin A1C [facility] Start: 12-20-2009 Administration of varicella zoster vaccine Zoster (Shingles) Vaccine (1 of 2) [facility] Start: 1999 Screening for malignant neoplasm of breast Mammogram [facility] Start: 12-20-1989 Screening for malignant neoplasm of cervix [facility] Start: 12-20-1980 Screening for malignant neoplasm of cervix Pap Smear [facility] Start: 12-20-1977 Adult BMI Follow Up Plan Adult BMI Follow Up Plan [facility] Start: 12-20-1969 Glaucoma screening Diabetes: Retinopathy Screening [facility] Start: 1959 Screening for malignant neoplasm of colon [facility] End: 04-13-2025 Basic metabolic 2000 panel - Serum or Plasma Basic Metabolic Panel Lab Routine 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 ([facility]) 1 Occurrences starting 04/13/2024 until 04/13/2025 [facility] Work Phone: Comment on above: 1 Occurrences starting 04/13/2024 until 04/13/2025 C reactive protein [Mass/volume] in Serum or Plasma C-reactive protein Lab Routine Rheumatoid arthritis involving multiple sites, unspecified whether rheumatoid factor present ([facility]) 11/19/2024 2:38 PM EDT [facility] End: 03-26-2025 CBC panel - Blood by Automated count CBC Lab Routine Other fatigue 1 Occurrences starting 03/26/2024 until 03/26/2025 [facility] Comment on above: 1 Occurrences starting 03/26/2024 until 03/26/2025 End: 11-19-2025 CCP Ab CCP Ab Lab Routine Rheumatoid arthritis involving multiple sites, unspecified whether rheumatoid factor present ([facility]) 1 Occurrences starting 11/19/2024 until 11/19/2025 [facility] Comment on above: 1 Occurrences starting 11/19/2024 until 11/19/2025 Cobalamin (Vitamin B 12) [Mass/volume] in Serum or Plasma Vitamin B12 Lab Routine Rheumatoid arthritis involving multiple sites, unspecified whether rheumatoid factor present ([facility]) 11/19/2024 2:38 PM EDT [facility] End: 03-26-2025 Comprehensive metabolic 2000 panel - Serum or Plasma Comprehensive metabolic panel Lab Routine Primary hypertension 1 Occurrences starting 03/26/2024 until 03/26/2025 [facility] Comment on above: 1 Occurrences starting 03/26/2024 until 03/26/2025 Cyclic citrullinated peptide IgG Ab [Units/volume] in Serum or Plasma CCP Ab Lab Routine Rheumatoid arthritis involving multiple sites, unspecified whether rheumatoid factor present ([facility]) 11/19/2024 2:38 PM EDT [facility] End: 03-26-2025 Drug Screen, Urine Drug Screen, Urine Lab Routine Medication monitoring encounter 1 Occurrences starting 03/26/2024 until 03/26/2025 [employer] Work Phone: Comment on above: 1 Occurrences starting 03/26/2024 until 03/26/2025 End: 04-03-2025 Drug Screen, Urine Drug Screen, Urine Lab Routine Medication monitoring encounter Rheumatoid arthritis involving multiple sites, unspecified whether rheumatoid factor present ([facility]) 1 Occurrences starting 04/03/2024 until 04/03/2025 [employer] Work Phone: Comment on above: 1 Occurrences starting 04/03/2024 until 04/03/2025 Erythrocyte sedimentation rate by Photometric method Erythrocyte Sedimentation Rate (ESR) Lab Routine Rheumatoid arthritis involving multiple sites, unspecified whether rheumatoid factor present ([facility]) 11/19/2024 2:38 PM EDT [facility] End: 03-26-2025 Microalbumin - Albumin: Creatinine Urine Ratio Microalbumin - Albumin: Creatinine Urine Ratio Lab Routine Type 1 diabetes mellitus with diabetic polyneuropathy ([facility]) 1 Occurrences starting 03/26/2024 until 03/26/2025 [facility] Comment on above: 1 Occurrences starting 03/26/2024 until 03/26/2025 Pulmonary function report Pulmonary Function Test Imaging Routine SOB (shortness of breath) on exertion Ordered: 01/15/2025 [facility] Work Phone: Comment on above: Ordered: 01/15/2025 End: 11-19-2025 Rheumatoid factor Rheumatoid factor Lab Routine Rheumatoid arthritis involving multiple sites, unspecified whether rheumatoid factor present ([facility]) 1 Occurrences starting 11/19/2024 until 11/19/2025 [facility] Comment on above: 1 Occurrences starting 11/19/2024 until 11/19/2025 Rheumatoid factor [Units/volume] in Serum by Nephelometry Rheumatoid factor Lab Routine Rheumatoid arthritis involving multiple sites, unspecified whether rheumatoid factor present ([facility]) 11/19/2024 2:38 PM EDT [facility] Vitamin D+Metabolite s [Mass/volume] in Serum or Plasma Vitamin D 25 hydroxy Lab Routine Rheumatoid arthritis involving multiple sites, unspecified whether rheumatoid factor present ([facility]) 11/19/2024 2:38 PM EDT [facility] Immunizations Immunization Date Immunization Notes Care Provider [facility] 07-12-2023 influenza, injectabl e, quadrivalent, preservative free Zen Furlong DO Work Phone: [facility] 07-12-2023 influenza virus vacc ine, unspecified formulation Zen Furlong DO Work Phone: [facility] 08-05-2022 influenza, injectabl e, quadrivalent, preservative free Zen Furlong DO Work Phone: [facility] 09-01-2021 Pfizer Purple Cap SARS-CoV-2 Vaccination Zeyad Tate MD Work Phone: [facility] 05-21-2021 influenza, injectabl e, quadrivalent, preservative free Zen Furlong DO Work Phone: [facility] 11-27-2020 Pfizer Purple Cap SARS-CoV-2 Vaccination Zeyad Tate MD Work Phone: [facility] 11-06-2020 COVID-19, mRNA, LNP- S, PF, 30mcg/0.3mL Dose Zen Furlong DO Work Phone: [facility] 11-03-2020 SARS-COV-2 (COVID-19 ) Vaccine, Unspecified Zen Furlong DO Work Phone: [facility] 06-11-2020 pneumococcal conjuga te vaccine, 13 valent Zen Furlong DO Work Phone: [facility] 06-05-2020 influenza virus vacc ine, unspecified formulation Zen Furlong DO Work Phone: [facility] 06-05-2020 pneumococcal vaccine , unspecified formulation Zen Furlong DO Work Phone: [facility] 05-20-2020 influenza, injectabl e, quadrivalent, preservative free Zen Furlong DO Work Phone: [facility] 05-20-2020 pneumococcal polysaccharide vaccine, 23 valent Zen Furlong DO Work Phone: [facility] 09-17-2019 tetanus toxoid, redu timmy diphtheria toxoid, and acellular pertussis vaccine, adsorbed Zen Furlong DO Work Phone: [facility] 06-08-2019 influenza, injectabl e, quadrivalent, preservative free Zen Furlong DO Work Phone: [facility] 06-04-2019 influenza, seasonal, injectable Zeyad Tate MD Work Phone: [facility] 11-28-2012 tetanus toxoid, unspecified formulation Zen Furlong DO Work Phone: [facility] Payers Date Payer Category Payer Medicaid [id number] 2022 Medicaid [id number] 2021 Medicare AETNA MEDICARE A ETNA MEDICARE PLAN (O) [id number] 2021-Present [phone] [address] [place] [address] [id number] 2021 Medicare HMO AETNA MEDICARE [id number] 1959 Unknown [id number] 2.16.840.1.641471.3.579.2. 647 1959 Unknown [id number] 2.16.840.1.788043.3.579.2. 647 1959 Unknown [id number] 2.16.840.1.458037.3.579.2. 593 1959 Unknown [id number] 2.16.840.1.740118.3.579.2. 593 1959 Unknown [id number] 2.16.840.1.785051.3.579.2. 593 1959 Unknown [id number] 2.16.840.1.064554.3.579.2. 593 1959 Unknown [id number] 2.16.840.1.899174.3.579.2. 593 1959 Unknown [id number] 2.16.840.1.174967.3.579.2. 593 1959 Unknown [id number] 2.16.840.1.965168.3.579.2. 593 1959 Unknown [id number] 2.16.840.1.724358.3.579.2. 593 1959 Unknown [id number] 2.16.840.1.771476.3.579.2. 593 1959 Unknown [id number] 2.16.840.1.793585.3.579.2. 593 1959 Unknown [id number] 2.16.840.1.921979.3.579.2. 593 1959 Unknown [id number] 2.16.840.1.033383.3.579.2. 593 1959 Unknown [id number] 2.16.840.1.039790.3.579.2. 593 1959 Unknown [id number] 2.840.1.680294.3.579.2. 59 1959 Unknown [id number] 2.16.840.1.893857.3.579.2. 593 1959 Unknown [id number] 2.16.840.1.284267.3.579.2. 59 1959 Unknown [id number] 2..840.1.756396.3.579.2. 593 1959 Unknown [id number] 2.16.840.1.021139.3.579.2. 593 1959 Unknown [id number] 2.16.840.1.488421.3.579.2. 593 1959 Unknown [id number] 2.16.840.1.853435.3.579.2. 593 1959 Unknown [id number] 2.16.840.1.599831.3.579.2. 593 1959 Unknown [id number] 2.16.840.1.322789.3.579.2. 593 1959 Unknown [id number] 2.16.840.1.489907.3.579.2. 593 1959 Unknown [id number] 2.16.840.1.605981.3.579.2. 593 1959 Unknown [id number] 2.16.840.1.474974.3.579.2. 593 1959 Unknown [id number] 2.16.840.1.001745.3.579.2. 593 1959 Unknown [id number] 2.16.840.1.660105.3.579.2. 593 1959 Unknown [id number] 2.16.840.1.225667.3.579.2. 593 1959 Unknown [id number] 2.16.840.1.024066.3.579.2. 1285 1959 Unknown [id number] 2.16.840.1.548101.3.579.2. 1285 1959 Unknown [id number] 2.16.840.1.274872.3.579.2. 1285 1959 Unknown [id number] 2.16.840.1.169690.3.579.2. 1285 1959 Unknown [id number] 2.16.840.1.755714.3.579.2. 1285 1959 Unknown [id number] 2.16.840.1.370696.3.579.2. 1285 1959 Unknown [id number] 2.16.840.1.454821.3.579.2. 1285 1959 Unknown [id number] 2.16.840.1.008389.3.579.2. 1285 1959 Unknown [id number] 2.16.840.1.836653.3.579.2. 1285 1959 Unknown [id number] 2.16.840.1.817139.3.579.2. 1285 1959 Unknown [id number] 2.16.840.1.011271.3.579.2. 1285 1959 Unknown [id number] 2.16.840.1.244412.3.579.2. 1285 1959 Unknown [id number] 2.16.840.1.498648.3.579.2. 1285 1959 Unknown [id number] 2.16840.1.348878.3.579.2. 1258 1959 Unknown [id number] 2.16.840.1.521842.3.579.2. 1258 1959 Unknown [id number] 2.840.1.135152.3.579.2. 1258 1959 Unknown [id number] 2.840.1.301984.3.579.2. 1258 1959 Unknown [id number] 2.840.1.678640.3.579.2. 1258 1959 Unknown [id number] 2.840.1.094538.3.579.2. 1258 1959 Unknown [id number] 2.16840.1.381085.3.579.2. 9 1959 Medicare [id number] 1960 Self-pay Private Health Insurance OHB [id number] Unknown [id number] Unknown [id number] 2.840.1.625201.3.579.2. 531 Social History Date Type Detail Facility Start: 07-01-2024 End: 09-12-2024 Sex Assigned At [facility] Start: 07-27-2022 End: 07-01-2024 Tobacco smoking status WYIS Ex-smoker [facility] Start: 09-05-1975 End: 06-06-1997 History of tobacco use Current smoker [facility] Start: 09-05-1975 End: 06-06-1997 History of tobacco use Cigarette Smoker [facility] Start: 07-27-2022 End: 07-01-2024 Tobacco use and exposure Smokeless tobacco non-user [facility] Start: 08-14-2024 End: 03-14-2025 Alcoholic beverage intake Ex-drinker (finding) [facility] Start: 07-01-2024 End: 09-12-2024 History [...] to any clubs or organizations such as JoinMe@ groups, [employer], [employer] or athleNumerify groups, or school groups? No [facility] Are you now , , , , never or living with a partner? [facility] How often to you hav e a drink containing alcohol? Never [facility] How hard is it for y ou to pay for the very basics like food, housing, medical care, and heating Not very hard [facility] Do you feel stress - tense, restless, nervous, or anxious, or unable to sleep at night because your mind is troubled all the time - these days [OSQ] To some extent [facility] (I/We) worried wheth er (my/our) food would run out before (I/we) got money to buy more. Sometimes true [facility] The food that (I/we) bought just didn't last, and (I/we) didn't have money to get more. Never true [facility] Do you belong to any clubs or organizations such as JoinMe@ groups, [employer], [employer] or athleNumerify groups, or school groups? Yes [facility] Start: 1960 Sex Assigned At Female [facility] Start: 09-15-2022 Gender identity Identifies as female gender (finding) [facility] How hard is it for y ou to pay for the very basics like food, housing, medical care, and heating Somewhat hard [facility] Start: 09-18-2019 End: 12-08-2024 Sex Female (finding) [facility] Tobacco smoking stat [facility] Unknown if ever smoked [facility] Work Phone: Medical Equipment Procedure Code Equipment Code Equipment Origin al Text Equipment Identifier Dates End: 09-19-2024 Clinical Notes 07-27-2021 to 05-08-2025 Rudolph Hurt MD - 03/14/2025 2:04 PM Jon Hurt MD - 03/14/2025 2:04 PM Jon Hurt MD - 03/14/2025 2:04 PM Jon Hurt MD - 03/14/2025 2:04 PM EDT Note Date & Type Note Facility 05-08-2025 Note Orthopedic Surgery Subjective Chief complaint: Chief Complaint Patient presents with Right Lower Leg - Follow-up, Pain Left Lower Leg - Follow-up, Pain 05/08/2025 Patient presents for follow-up evaluation status post IMN bilateral tibial shaft fractures, DOS: 04/22/2024. In the interim, she states that the lower extremity pain has improved since last visit. She continues to endorse a small 1 x 1 cm wound to the anterior medial aspect of the right [place]. This will occasionally drain clear fluid. Patient states that she has been following with wound care for this wound. She states that recently the deeper tissues and underlying bone was debrided by retail beauty specialist. Patient is not currently on any antibiotics. Patient denies any fevers, chills.denies any purulent drainage or discharge from the wound. 10/15/2024 63 female presents for follow-up s/p closed reduction and IM nail insertion of bilateral tibia/fibula fractures, DOS: 04/22/2024. In the interim, patient has been doing overall well. She has been weightbearing as tolerated to the bilateral lower extremities. She is using a rolling walker for assistance with ambulation. Patient is not currently in physical therapy. Endorses a small area of superficial ulceration at the medial aspect of the right ankle. Otherwise, denies any problems with the surgical site. Denies any drainage. Denies any fevers or chills. Patient states she has quit smoking almost 3 to 4 years ago. No active drainage noted from the previous grade 1 open fracture although she has a small blister at the site of the comminution of the fracture. Patient denies any fever, chills or rigors or any breathlessness. She has been ambulating full weightbearing with occasional use of cane for long distance walking. Endorses history of diabetes. Most recent A1c reported to be 7.4. 08/13/24 Patient is a 63-year-old female who presents 3 months status post bilateral tibia/fibula fractures treated with intramedullary nailing. Patient has been weightbearing as tolerated with the assistance of a walker since her last visit. She reports an improvement with physical therapy. She denies any numbness/tingling in the bilateral lower extremities. Continues to take calcium and vitamin D3. She does report some left ankle pain since twisting it approximately 2 weeks ago and reports will gradual worsening pain and swelling. 07/09/2024 Mrs. Acosta is a 63-year-old female who returns to see me today for her bilateral tibial fractures that were treated with intramedullary nailing on 22 April 2024. Patient is 10 weeks following her bilateral intramedullary nailing of her tibiae. She has been nonweightbearing at this point in time. She says she does stand up momentarily at home without any major pain issues. She was able to take few steps in the office today. Patient denies any knee pain at this point in time or extreme pain. Her blood sugars are well-controlled. Denies any fever, chills or rigors and breathlessness. She does have occasional swelling in the lower extremities with pitting edema. She wants to see if she can progress to weightbearing as possible. She does take a calcium and vitamin D3 as well. 06/11/24 Monica is a 63-year-old female returns to clinic today for evaluation of bilateral tibial fibular fractures status post bilateral tibial IMNs (DOS 04/22/2024). Patient now almost 7 weeks following her fracture and patient reports doing well. Pain has been well-controlled with Tylenol as needed. She has remained nonweightbearing to the bilateral lower extremities but has been working on knee and ankle range of motion. She is on Lovenox for DVT prophylaxis and is also taking calcium and vitamin D supplementation. Denies fever, chills, numbness, tingling, or drainage from the incisions. She is still living at a nursing facility. Denies any new concerns today. 05/14/24 Monica Acosta is a 64 y.o. year old female presenting for evaluation of bilateral tibia-fibula fracture status post suprapatellar bilateral intramedullary nailing of tibia fibula along with interlocking. Patient underwent fall at standing height following which she had severe comminuted fracture of her bilateral tibia-fibula with grade 1 open fractures on both sides along with severe subcutaneous bleeding and laceration with fragile skin. Patient underwent intramedullary nailing using the suprapatellar approach on 22 April 2024. Following the surgery patient was kept nonweightbearing over the bilateral lower extremities in a wheelchair. She has been using calcium and vitamin D3 for her osteoporosis. Patient denies any calf swelling or tenderness. Denies any fever, chills or rigors or breathlessness. She has been happy with her pain control. She is here for her first postoperative follow-up visit for removal of her sutures and further evaluation. She is happy with her outcome at this point in ti (more content not included)... [facility] 03-14-2025 History of Present illness Narrative Associated [...] daily. Associated Problem(s): 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 Follow with cardiology. [...] Addressed This Visit 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 Follow with cardiology. Rheumatoid arthritis involving multiple sites with positive rheumatoid factor (HCC) Continued pain and deformity. Follow with rheum. Relevant Medications celecoxib (CeleBREX) 200 MG capsule HYDROcodone-acetaminophen ([place]) 5-325 MG tablet Type 1 diabetes mellitus [...] MG DR capsule documented in this encounter [facility] 01-15-2025 History of Present illness Narrative Associated Problem(s): SOB (shortness of breath) on exertion Continued SOB and former smoker. Check PFTs and start albuterol PRN. Associated Problem(s): Hypersomnia Signs of MARA and check sleep study. Associated Problem(s): 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 (CMS/HCC) Check stress [...] Addressed This Visit 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 (CMS/HCC) Check stress [...] with myocardial perfusion documented in this encounter [facility] 12-31-2024 History of Present illness Narrative Monica [...] 44% , avg 196, TDD 39. CGM 70-29 avg 196. IM: 12/2023 follow up 12/20/2023 [...] the office 7.8. had back surgery in [place] IM: 03/2020 follow up from type 1 [...] saw her today with tele medicine with [employer]. HPI: 09/24 New patient sent from Dr. [...] capsule 1 capsule, 3 times daily HYDROcodone-acetaminophen ([place]) 5-325 MG tablet 1 tablet, Oral, 4 [...] (BMI) 31.0-31.9, adult CAD (coronary artery disease) ([facility]) Current use of insulin ([facility] Diabetes ([facility]) Dietary counseling and surveillance Encounter for fitting and adjustment of insulin pump Essential (primary) hypertension ([facility]) Fracture of right hand Heart problem High cholesterol ([facility]) History of open heart surgery HTN (hypertension) ([facility] Hypertension ([facility]) residential (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 ([facility]) Mixed hyperlipidemia ([facility]) Obesity, unspecified PAD (peripheral artery disease) ([facility]) Personal history of other medical treatment Triple Bypass POTS (postural orthostatic tachycardia syndrome) Presence of insulin pump (external) (internal) Rheumatoid arthritis ([facility]) Type 1 diabetes mellitus with other [...] Type 1 diabetes mellitus with hyperglycemia (HCC) ([facility]) - POCT glucose manually resulted - POCT glycosylated hemoglobin (Hb A1C) docked device Essential (primary) hypertension (CMS/HCC) Vitamin D deficiency, unspecified Dietary counseling and surveillance Mixed hyperlipidemia (CMS/HCC) Presence of insulin pump (external) (internal) residential (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 ([facility]) Encounter for fitting or adjustment of [...] visit: No Eye exam current: Yes 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 Associated Problem(s): 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 ([facility]) Feels worse and follow up with cardiology. [...] Addressed This Visit 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 (CMS/HCC) Feels worse [...] check sleep study. documented in this encounter [facility] 11-30-2024 Note [place] Cardiology - [facility] Subjective: New patient here to reestablish care, and surgery clearance for Dr. Brannon Scheduled for December 06. Patient Active Problem List Diagnosis Type I or II open fracture of right tibia and fibula Fracture of shaft of tibia and fibula, closed, left, initial encounter Compression fracture of lumbar vertebra (CMS/HCC) Coronary arteriosclerosis Diabetic polyneuropathy associated with type 1 diabetes mellitus (CMS/HCC) Gastroesophageal reflux disease History of cholecystectomy History of coronary artery bypass surgery Hypertension Hypertriglyceridemia Localized, primary osteoarthritis of hand Migraine Overweight PAD (peripheral artery disease) Panic attack Pneumonia Postural orthostatic tachycardia syndrome Primary fibromyalgia syndrome Rheumatoid arthritis (CMS/HCC) Sarcoidosis Severe depression (CMS/HCC) Status post partial amputation of left foot (CMS/HCC) Urge incontinence of urine Fall Type I or II open fracture of right tibia and fibula, initial encounter History of coronary artery stent placement Dyslipidemia 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 (CMS/HCC) Presence of insulin pump (external) (internal) Type 1 diabetes mellitus with other circulatory complications ([facility]) Type 1 diabetes mellitus with hyperglycemia ([facility]) Vitamin D deficiency, unspecified Family History Problem Relation Name Age of Onset Anesthesia problems Mother Nina Einhipplaurel Broken bones Mother Nina Phillips[place]laurel Osteoporosis Mother Nina [place] Broken bones Father Ilana Marquez Stroke Father Ilana Marquez Coronary artery disease Father Ilana Marquez Social History Tobacco Use Smoking status: Former Current packs/day: 1.50 Average packs/day: 1.5 packs/day for 15.0 years (22.5 ttl pk-yrs) Types: Cigarettes Smokeless tobacco: Never Vaping Use Vaping status: Never Used Substance Use Topics Alcohol use: Never Drug use: Never HPI She is seen as a new patient to reestablish care and for preoperative evaluation for leg surgery. She has history of diabetes for 61 years currently on insulin, history of coronary artery disease status post stenting procedures in the past followed by triple-vessel coronary artery bypass graft surgery in 2014 performed in [place] [no report available]. She has POTS postural orthostatic tachycardia syndrome diagnosed in 2019. She was seen by Dr. Dmitry Ibarra in 2019 and 2020 for that purpose. Her last syncopal episode was in April 2024 at that time she sustained leg fractures. She currently denies chest pain. She has shortness of breath on exertion NYHA class II-III symptoms. She has no leg edema. She does not feel palpitations except with her POTS episodes. Review of Systems Cardiovascular: Positive for dyspnea on exertion and syncope (POTS). Respiratory: Positive for snoring. Musculoskeletal: Positive for arthritis (RA) and joint pain. Neurological: Positive for dizziness (positional). All other systems reviewed and are negative. Objective Visit Vitals BP 108/68 (BP Location: Right arm, Patient Position: Sitting) Pulse 83 Ht 1.702 m (5' 7 ) Wt 77.1 kg (170 lb) SpO2 95% BMI 26.63 kg/m??? OB Status Postmenopausal Smoking Status Former BSA 1.91 m??? Physical Exam Constitutional: Appearance: She is well-developed. She is not ill-appearing. HENT: Head: Normocephalic and atraumatic. Nose: Nose normal. Eyes: General: No scleral icterus. Pupils: Pupils are equal, round, and reactive to light. Neck: Thyroid: No thyromegaly. Vascular: No JVD. Cardiovascular: Rate and Rhythm: Normal rate and regular rhythm. Pulses: Radial pulses are 2+ on the right side and 2+ on the left side. Heart sounds: Normal heart sounds. No murmur heard. No friction rub. No gallop. Pulmonary: Effort: Pulmonary effort is normal. No respiratory distress. Breath sounds: Normal breath sounds. No wheezing or rales. Chest: Chest wall: No tenderness. Abdominal: General: Bowel sounds are normal. There is no distension. Palpations: Abdomen is soft. Tenderness: There is no abdominal tenderness. Musculoskeletal: General: No swelling. Cervical back: Neck supple. Comments: Uses a walker to assist with ambulation Skin: General: Skin is warm and dry. Neurological: General: No focal deficit present. Mental Status: She is alert and oriented to person, place, and time. Psychiatric: Mood and Affect: Mood normal. Behavior: Behavior is cooperative. Judgment: Judgment normal. Allergies Allergies Allergen Reactions Adhesive Other BLISTERS (IF ON FOR TOO LONG) Bee Venom Protein (Honey Bee) Shortness of breath Other reaction(s): TROUBLE BREATHING Other reaction(s): TROUBLE BREATHING Bee Pollen Other Cilostazol Unknown Codeine Other Other Reaction(s): GETS HYPERACTIVE Icosapent Ethyl Dizziness Morphine Other Other Reaction(s): (more content not included)... [facility] 11-19-2024 History of Present illness Narrative Images from the original note were not included. [id number] [id number] Date of Service: 11/19/2024 Subjective: Monica Acosta [...] chest pain 25 tablet 1 blood-glucose meter (ONETOUCH VERIO REFLECT METER) misc use as [...] total) before bedtime. 60 tablet 2 lancets (CrowdStreetTOUCH DELICA PLUS LANCET) 33 gauge misc TEST [...] multiple sites, unspecified whether rheumatoid factor present ([facility]) - Vitamin D 25 hydroxy; Future - [...] or corrected. Thank you for your understanding. [facility] Rheumat[facility] Dr. Collin Saba MD [address] [place] [address], [address] [place] [address] Office: [phone] documented in this encounter [facility] 10-15-2024 Note Orthopedic Surgery Subjective Chief complaint: Chief Complaint Patient presents with Right Lower Leg - Follow-up, Pain Left Lower Leg - Follow-up, Pain 10/15/2024 63 female presents for follow-up s/p closed reduction and IM nail insertion of bilateral tibia/fibula fractures, DOS: 04/22/2024. In the interim, patient has been doing overall well. She has been weightbearing as tolerated to the bilateral lower extremities. She is using a rolling walker for assistance with ambulation. Patient is not currently in physical therapy. Endorses a small area of superficial ulceration at the medial aspect of the right ankle. Otherwise, denies any problems with the surgical site. Denies any drainage. Denies any fevers or chills. Patient states she has quit smoking almost 3 to 4 years ago. No active drainage noted from the previous grade 1 open fracture although she has a small blister at the site of the comminution of the fracture. Patient denies any fever, chills or rigors or any breathlessness. She has been ambulating full weightbearing with occasional use of cane for long distance walking. 08/13/24 Patient is a 63-year-old female who presents 3 months status post bilateral tibia/fibula fractures treated with intramedullary nailing. Patient has been weightbearing as tolerated with the assistance of a walker since her last visit. She reports an improvement with physical therapy. She denies any numbness/tingling in the bilateral lower extremities. Continues to take calcium and vitamin D3. She does report some left ankle pain since twisting it approximately 2 weeks ago and reports will gradual worsening pain and swelling. 07/09/2024 Mrs. Acosta is a 63-year-old female who returns to see me today for her bilateral tibial fractures that were treated with intramedullary nailing on 22 April 2024. Patient is 10 weeks following her bilateral intramedullary nailing of her tibiae. She has been nonweightbearing at this point in time. She says she does stand up momentarily at home without any major pain issues. She was able to take few steps in the office today. Patient denies any knee pain at this point in time or extreme pain. Her blood sugars are well-controlled. Denies any fever, chills or rigors and breathlessness. She does have occasional swelling in the lower extremities with pitting edema. She wants to see if she can progress to weightbearing as possible. She does take a calcium and vitamin D3 as well. 06/11/24 Monica is a 63-year-old female returns to clinic today for evaluation of bilateral tibial fibular fractures status post bilateral tibial IMNs (DOS 04/22/2024). Patient now almost 7 weeks following her fracture and patient reports doing well. Pain has been well-controlled with Tylenol as needed. She has remained nonweightbearing to the bilateral lower extremities but has been working on knee and ankle range of motion. She is on Lovenox for DVT prophylaxis and is also taking calcium and vitamin D supplementation. Denies fever, chills, numbness, tingling, or drainage from the incisions. She is still living at a nursing facility. Denies any new concerns today. 05/14/24 Monica Acosta is a 63 y.o. year old female presenting for evaluation of bilateral tibia-fibula fracture status post suprapatellar bilateral intramedullary nailing of tibia fibula along with interlocking. Patient underwent fall at standing height following which she had severe comminuted fracture of her bilateral tibia-fibula with grade 1 open fractures on both sides along with severe subcutaneous bleeding and laceration with fragile skin. Patient underwent intramedullary nailing using the suprapatellar approach on 22 April 2024. Following the surgery patient was kept nonweightbearing over the bilateral lower extremities in a wheelchair. She has been using calcium and vitamin D3 for her osteoporosis. Patient denies any calf swelling or tenderness. Denies any fever, chills or rigors or breathlessness. She has been happy with her pain control. She is here for her first postoperative follow-up visit for removal of her sutures and further evaluation. She is happy with her outcome at this point in time. History Past Surgical History: Procedure Laterality Date CORONARY ARTERY BYPASS GRAFT CTA CHEST W IV CONTRAST 06/30/2020 CT CHEST ANGIOGRAM W AND/OR WO IV CONTRAST FLORENTINO CONVERSION Past Medical History: Diagnosis Date Acute coronary syndrome ([facility]) 05/21/2022 Arthritis CKD (chronic kidney disease), stage II Coronary artery disease 12/26/2009 Deep vein thrombosis (DVT) ([facility]) 08/16/2019 Diabetes mellitus ([facility]) Heart disease [id number] Hypertension 01/08/1996 Hypotension POTS (postural orthostatic tachycardia syndrome) Spinal stenosis 2023 Objective General: Body mass index is 29.44 kg/m???. No acute distress, comfortable Respiratory: Unlabored breathing with normal rate, no cough (more content not included)... [facility] 09-19-2024 History of Present illness [...] vascular. Associated Problem(s): 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 (CMS/HCC) No pain [...] circulatory complications (CMS/HCC) Follow with vascular. Dyslipidemia ([facility]) Relevant Orders Lipid panel PAD (peripheral artery disease) (CMS/HCC) Not lightheaded and monitor. Return to vascular. 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 (CMS/HCC) No pain [...] MG tablet methotrexate 2.5 MG tablet HYDROcodone-acetaminophen ([place]) 5-325 MG tablet Other Relevant Orders Rheumatoid [...] Hepatic function panel documented in this encounter [facility] 08-21-2024 History of Present illness Narrative Monica [...] 60%, bolus 40% , avg 231, CGM 2 IM:: 06/2021 follow up from type 1 [...] the office 7.8. had back surgery in [place] IM: 03/2020 follow up from type 1 [...] saw her today with tele medicine with [employer]. HPI: 09/24 New patient sent from Dr. [...] Outpatient Medications Medication Instructions Accu-Chek FastClix [place]ets [facility] [place] not apply aspirin 81 mg, Daily atenolol (TENORMIN) 50 mg, Daily atorvastatin (LIPITOR) 80 mg, Daily Blood Glucose Monitoring Suppl ([place] Verio Reflect) w/Device kit Does not apply Cariprazine HCl (Vraylar) 1.5 MG capsule Oral celecoxib (CELEBREX) 200 mg, 2 times daily cholecalciferol (VITAMIN D-3) 1,000 Units, Oral, Daily Continuous Glucose Scientist/Engineer (FreeStyle Tru 14 Day [place]) device Does not apply Continuous Glucose Sensor (FreeStyle Tru 14 Day Sensor) [facility] [place] not apply dilTIAZem CD (CARDIZEM CD) [...] Other, As needed, Use as instructed HYDROcodone-acetaminophen ([place]) 5-325 MG tablet No dose, route, or [...] MG tablet Oral OneTouch Delica Lancets 33G [facility] [place] Does not apply pantoprazole (PROTONIX) 40 mg, [...] (BMI) 31.0-31.9, adult CAD (coronary artery disease) ([facility]) Current use of insulin ([facility]) Diabetes ([facility]) Dietary counseling and surveillance Encounter for fitting and adjustment of insulin pump Essential (primary) hypertension (CMS/HCC) Fracture of right hand Heart problem High cholesterol (CMS/HCC) History of open heart surgery HTN (hypertension) (CMS/HCC) Hypertension (CMS/HCC) 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 (CMS/HCC) Mixed hyperlipidemia (CMS/HCC) Obesity, unspecified PAD (peripheral artery disease) (CMS/HCC) Personal history of other medical treatment Triple Bypass POTS (postural orthostatic tachycardia syndrome) Presence of insulin pump (external) (internal) Rheumatoid arthritis (CMS/HCC) Type 1 diabetes mellitus with other circulatory complications (CMS/HCC) Vitamin D deficiency, unspecified Past Surgical History: [...] Type 1 diabetes mellitus with hyperglycemia (HCC) ([facility]) - POCT glucose manually resulted - POCT glycosylated hemoglobin (Hb A1C) docked device - Insulin Aspart (NovoLOG) 100 UNIT/ML solution; Inject 50 Units as directed Daily We will continue the same settings. Essential (primary) hypertension ([facility]) Vitamin D deficiency, unspecified Dietary counseling and surveillance Diet and exercise reviewed with the patient Mixed hyperlipidemia (CMS/HCC) Presence of insulin pump (external) (internal) residential (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 (CMS/[facility]) Encounter for fitting or adjustment of insulin pump Follow up in about 3 months (around 11/19/2024). documented in this encounter [facility] 08-13-2024 Note Orthopedic Surgery Subjective Chief complaint: Chief Complaint Patient presents with Right Lower Leg - Follow-up, Pain Left Lower Leg - Follow-up, Pain 08/13/24 Patient is a 63-year-old female who presents 3 months status post bilateral tibia/fibula fractures treated with intramedullary nailing. Patient has been weightbearing as tolerated with the assistance of a walker since her last visit. She reports an improvement with physical therapy. She denies any numbness/tingling in the bilateral lower extremities. Continues to take calcium and vitamin D3. She does report some left ankle pain since twisting it approximately 2 weeks ago and reports will gradual worsening pain and swelling. 07/09/2024 Mrs. Acosta is a 63-year-old female who returns to see me today for her bilateral tibial fractures that were treated with intramedullary nailing on 22 April 2024. Patient is 10 weeks following her bilateral intramedullary nailing of her tibiae. She has been nonweightbearing at this point in time. She says she does stand up momentarily at home without any major pain issues. She was able to take few steps in the office today. Patient denies any knee pain at this point in time or extreme pain. Her blood sugars are well-controlled. Denies any fever, chills or rigors and breathlessness. She does have occasional swelling in the lower extremities with pitting edema. She wants to see if she can progress to weightbearing as possible. She does take a calcium and vitamin D3 as well. 06/11/24 Monica is a 63-year-old female returns to clinic today for evaluation of bilateral tibial fibular fractures status post bilateral tibial IMNs (DOS 04/22/2024). Patient now almost 7 weeks following her fracture and patient reports doing well. Pain has been well-controlled with Tylenol as needed. She has remained nonweightbearing to the bilateral lower extremities but has been working on knee and ankle range of motion. She is on Lovenox for DVT prophylaxis and is also taking calcium and vitamin D supplementation. Denies fever, chills, numbness, tingling, or drainage from the incisions. She is still living at a nursing facility. Denies any new concerns today. 05/14/24 Monica Acosta is a 63 y.o. year old female presenting for evaluation of bilateral tibia-fibula fracture status post suprapatellar bilateral intramedullary nailing of tibia fibula along with interlocking. Patient underwent fall at standing height following which she had severe comminuted fracture of her bilateral tibia-fibula with grade 1 open fractures on both sides along with severe subcutaneous bleeding and laceration with fragile skin. Patient underwent intramedullary nailing using the suprapatellar approach on 22 April 2024. Following the surgery patient was kept nonweightbearing over the bilateral lower extremities in a wheelchair. She has been using calcium and vitamin D3 for her osteoporosis. Patient denies any calf swelling or tenderness. Denies any fever, chills or rigors or breathlessness. She has been happy with her pain control. She is here for her first postoperative follow-up visit for removal of her sutures and further evaluation. She is happy with her outcome at this point in time. History Past Surgical History: Procedure Laterality Date CORONARY ARTERY BYPASS GRAFT CTA CHEST W IV CONTRAST 06/30/2020 CT CHEST ANGIOGRAM W AND/OR WO IV CONTRAST FLORENTINO CONVERSION Past Medical History: Diagnosis Date Acute coronary syndrome ([facility]) 05/21/2022 Arthritis CKD (chronic kidney disease), stage II Coronary artery disease 12/26/2009 Deep vein thrombosis (DVT) ([facility]) 08/16/2019 Diabetes mellitus ([facility]) Heart disease [id number] Hypertension 01/08/1996 Hypotension POTS (postural orthostatic tachycardia syndrome) Spinal stenosis 2022 Objective General: Body mass index is 29.44 kg/m???. No acute distress, comfortable Respiratory: Unlabored breathing with normal rate, no cough Cardiovascular: Warm well perfused extremities Psych: Appropriate mood behavior Focused examination of bilateral knees: Central obesity noted. -Incisions to bilateral lower legs are healing well. No notable scabbing, erythema, ecchymosis, or swelling. No drainage from the incisions. -Nontender to palpation throughout the bilateral knees. No effusion -Calves soft and nontender bilaterally -Demonstrates active knee flexion/extension from 0 to about 110 degrees. Demonstrates good ankle plantarflexion dorsiflexion without discomfort. -Sensation intact light touch in DP, SP, and tibial nerve prescriptions -Warm and well-perfused distally Left ankle: - Tender to palpation over the medial malleolus and posterior malleolus with minimal swelling Imaging personally reviewed: X-rays of bilateral tibia-fibula multiple views were repeated today to be compared with the previous x-rays, were personally reviewed, demonstrating stable a (more content not included)... [facility] 07-09-2024 Note Orthopedic Surgery Subjective Chief complaint: Chief Complaint Patient presents with Right Lower Leg - Post-op Left Lower Leg - Post-op 07/09/2024 Mrs. Acosta is a 63-year-old female who returns to see me today for her bilateral tibial fractures that were treated with intramedullary nailing on 22 April 2024. Patient is 10 weeks following her bilateral intramedullary nailing of her tibiae. She has been nonweightbearing at this point in time. She says she does stand up momentarily at home without any major pain issues. She was able to take few steps in the office today. Patient denies any knee pain at this point in time or extreme pain. Her blood sugars are well-controlled. Denies any fever, chills or rigors and breathlessness. She does have occasional swelling in the lower extremities with pitting edema. She wants to see if she can progress to weightbearing as possible. She does take a calcium and vitamin D3 as well. 06/11/24 Monica is a 63-year-old female returns to clinic today for evaluation of bilateral tibial fibular fractures status post bilateral tibial IMNs (DOS 04/22/2024). Patient now almost 7 weeks following her fracture and patient reports doing well. Pain has been well-controlled with Tylenol as needed. She has remained nonweightbearing to the bilateral lower extremities but has been working on knee and ankle range of motion. She is on Lovenox for DVT prophylaxis and is also taking calcium and vitamin D supplementation. Denies fever, chills, numbness, tingling, or drainage from the incisions. She is still living at a nursing facility. Denies any new concerns today. 05/14/24 Monica Acosta is a 63 y.o. year old female presenting for evaluation of bilateral tibia-fibula fracture status post suprapatellar bilateral intramedullary nailing of tibia fibula along with interlocking. Patient underwent fall at standing height following which she had severe comminuted fracture of her bilateral tibia-fibula with grade 1 open fractures on both sides along with severe subcutaneous bleeding and laceration with fragile skin. Patient underwent intramedullary nailing using the suprapatellar approach on 22 April 2024. Following the surgery patient was kept nonweightbearing over the bilateral lower extremities in a wheelchair. She has been using calcium and vitamin D3 for her osteoporosis. Patient denies any calf swelling or tenderness. Denies any fever, chills or rigors or breathlessness. She has been happy with her pain control. She is here for her first postoperative follow-up visit for removal of her sutures and further evaluation. She is happy with her outcome at this point in time. Patient History Past Surgical History: Procedure Laterality Date CORONARY ARTERY BYPASS GRAFT CTA CHEST W IV CONTRAST 06/30/2020 CT CHEST ANGIOGRAM W AND/OR WO IV CONTRAST FLORENTINO CONVERSION Past Medical History: Diagnosis Date Acute coronary syndrome ([facility]) 05/21/2022 Arthritis CKD (chronic kidney disease), stage II Coronary artery disease 12/26/2009 Deep vein thrombosis (DVT) ([facility]) 08/16/2019 Diabetes mellitus ([facility]) Heart disease [id number] Hypertension 01/08/1996 Hypotension POTS (postural orthostatic tachycardia syndrome) Spinal stenosis 2022 Objective General: There is no height or weight on file to calculate BMI. No acute distress, comfortable Respiratory: Unlabored breathing with normal rate, no cough Cardiovascular: Warm well perfused extremities Psych: Appropriate mood behavior Focused examination of bilateral knees: Central obesity noted. -Incisions to bilateral lower legs are healing well. No notable scabbing, erythema, ecchymosis, or swelling. No drainage from the incisions. -Nontender to palpation throughout the bilateral knees. No effusion -Calves soft and nontender bilaterally -Demonstrates active knee flexion/extension from 0 to about 110 degrees. Demonstrates good ankle plantarflexion dorsiflexion without discomfort. -Sensation intact light touch in DP, SP, and tibial nerve prescriptions -Warm and well-perfused distally Imaging personally reviewed: X-rays of bilateral tibia-fibula multiple views were repeated today to be compared with the previous x-rays, were personally reviewed, demonstrating stable alignment of bilateral intramedullary nails with interval callus formation at the bilateral distal tib/fib fractures. Again very minimal callus formation noted. Overall fracture is well aligned and stable at this point in time. No evidence of hardware loosening or breakage. I have explained to the patient that there is very minimal callus formation and she would benefit with gradually increasing her weightbearing to enable stimulation of callus formation. Assessment/Plan Monica Acosta is a 63 y.o. year old female with Tibia/fibula fracture, right, open type I or II, initial encounter Tibia/fibula fracture, left, closed, init (more content not included)... [facility] 06-11-2024 Note Orthopedic Surgery Subjective Chief complaint: Chief Complaint Patient presents with Right Lower Leg - Post-op, Pain Left Lower Leg - Post-op, Pain 06/11/24 Monica is a 63-year-old female returns to clinic today for evaluation of bilateral tibial fibular fractures status post bilateral tibial IMNs (DOS 04/22/2024). Patient now almost 7 weeks following her fracture and patient reports doing well. Pain has been well-controlled with Tylenol as needed. She has remained nonweightbearing to the bilateral lower extremities but has been working on knee and ankle range of motion. She is on Lovenox for DVT prophylaxis and is also taking calcium and vitamin D supplementation. Denies fever, chills, numbness, tingling, or drainage from the incisions. She is still living at a nursing facility. Denies any new concerns today. 05/14/24 Monica Acosta is a 63 y.o. year old female presenting for evaluation of bilateral tibia-fibula fracture status post suprapatellar bilateral intramedullary nailing of tibia fibula along with interlocking. Patient underwent fall at standing height following which she had severe comminuted fracture of her bilateral tibia-fibula with grade 1 open fractures on both sides along with severe subcutaneous bleeding and laceration with fragile skin. Patient underwent intramedullary nailing using the suprapatellar approach on 22 April 2024. Following the surgery patient was kept nonweightbearing over the bilateral lower extremities in a wheelchair. She has been using calcium and vitamin D3 for her osteoporosis. Patient denies any calf swelling or tenderness. Denies any fever, chills or rigors or breathlessness. She has been happy with her pain control. She is here for her first postoperative follow-up visit for removal of her sutures and further evaluation. She is happy with her outcome at this point in time. Patient History Past Surgical History: Procedure Laterality Date CORONARY ARTERY BYPASS GRAFT CTA CHEST W IV CONTRAST 06/30/2020 CT CHEST ANGIOGRAM W AND/OR WO IV CONTRAST FLORENTINO CONVERSION Past Medical History: Diagnosis Date Acute coronary syndrome ([facility]) 05/21/2022 Arthritis CKD (chronic kidney disease), stage II Coronary artery disease 12/26/2009 Deep vein thrombosis (DVT) ([facility]) 08/16/2019 Diabetes mellitus ([facility]) Heart disease [id number] Hypertension 01/08/1996 Hypotension POTS (postural orthostatic tachycardia syndrome) Spinal stenosis 2022 Objective General: Body mass index is 29.44 kg/m???. No acute distress, comfortable Respiratory: Unlabored breathing with normal rate, no cough Cardiovascular: Warm well perfused extremities Psych: Appropriate mood behavior Focused examination of bilateral knees: -Incisions to bilateral lower legs are healing well. No notable scabbing, erythema, ecchymosis, or swelling. No drainage from the incisions. -Nontender to palpation throughout the bilateral knees. No effusion -Calves soft and nontender bilaterally -Demonstrates active knee flexion/extension from 0 to about 110 degrees. Demonstrates good ankle plantarflexion dorsiflexion without discomfort. -Sensation intact light touch in DP, SP, and tibial nerve prescriptions -Warm and well-perfused distally Imaging personally reviewed: X-rays of bilateral tibia-fibula obtained today were personally reviewed, demonstrating stable alignment of bilateral intramedullary nails with interval callus formation at the bilateral distal tib/fib fractures. Very minimal callus formation noted. No evidence of hardware loosening or breakage. Assessment/Plan Monica Acosta is a 63 y.o. year old female with Tibia/fibula fracture, right, open type I or II, initial encounter Tibia/fibula fracture, left, closed, initial encounter -Patient is now about 6 weeks out from bilateral tibial IMN for bilateral distal tib-fib shaft fractures. Clinically, she is doing well. X-rays obtained today show stable alignment of the fractures with some interval callus formation. -At this time, we will transition the patient to toe-touch weightbearing to bilateral lower extremities -She may try standing with support or using the stationary bike as tolerated. We discussed that, if she has significant pain, she should back off from while weightbearing. Patient will be cautious due to her severe osteoporosis with her risk for hardware failure. Patient will be on strict falls precautions. -Continue working on active knee and ankle range of motion -Continue vitamin D and calcium supplementation -Continue DVT prophylaxis as prescribed -Follow-up in clinic in 4 weeks. We will obtain repeat x-rays of the bilateral tib-fib's at that time. If she continues to heal well, we will consider advancing to weightbearing as tolerated. All questions answered today. Patient is happy with the plan. Leidy Skelton MD Orthopaedic Surgery Resident, PGY-4 06/11/24 By using the atte (more content not included)... [facility] 05-14-2024 Note Orthopedic Surgery Subjective Chief complaint: Chief Complaint Patient presents with Left Lower Leg - Post-op, Pain Right Lower Leg - Post-op, Pain 05/14/24 Monica Acosta is a 63 y.o. year old female presenting for evaluation of bilateral tibia-fibula fracture status post suprapatellar bilateral intramedullary nailing of tibia fibula along with interlocking. Patient underwent fall at standing height following which she had severe comminuted fracture of her bilateral tibia-fibula with grade 1 open fractures on both sides along with severe subcutaneous bleeding and laceration with fragile skin. Patient underwent intramedullary nailing using the suprapatellar approach on 22 April 2024. Following the surgery patient was kept nonweightbearing over the bilateral lower extremities in a wheelchair. She has been using calcium and vitamin D3 for her osteoporosis. Patient denies any calf swelling or tenderness. Denies any fever, chills or rigors or breathlessness. She has been happy with her pain control. She is here for her first postoperative follow-up visit for removal of her sutures and further evaluation. She is happy with her outcome at this point in time. Patient History Past Surgical History: Procedure Laterality Date CORONARY ARTERY BYPASS GRAFT CTA CHEST W IV CONTRAST 06/30/2020 CT CHEST ANGIOGRAM W AND/OR WO IV CONTRAST FLORENTINO CONVERSION Past Medical History: Diagnosis Date Acute coronary syndrome ([facility]) 05/21/2022 Arthritis CKD (chronic kidney disease), stage II Coronary artery disease 12/26/2009 Deep vein thrombosis (DVT) ([facility]) 08/16/2019 Diabetes mellitus ([facility]) Heart disease [id number] Hypertension 01/08/1996 Hypotension POTS (postural orthostatic tachycardia syndrome) Spinal stenosis 2022 Objective General: Body mass index is 28.51 kg/m???. No acute distress, comfortable Respiratory: Unlabored breathing with normal rate, no cough Cardiovascular: Warm well perfused extremities Psych: Appropriate mood behavior Bilateral knee joints and the lower extremities were examined and compared: Patient has sutures in situ these were removed today without any complications. Patient has good active extension of the knee joints and flexion to about 110 degrees. Patient has small scab over the right tibia fibular fracture region which had grade 1 fracture as well as a scab that came off on the left knee joint with some minor superficial abrasion. This measures about 1.5 cm x 1.5 cm on the left side. Patient has good ankle plantarflexion dorsiflexion without any ankle pain. She has good alignment of the lower extremity without any limiting discrepancy. Patient has no rotational malalignment. Patient has no calf swelling or tenderness. Ankle and toe range of motion are equal on both sides with signs of degenerative changes in the ankles. No signs of new neurological deficit seen. No redness noted. No signs of compartment syndrome seen. Distal neurovascular status is well-maintained intact. Imaging personally reviewed: X-rays of bilateral tibia-fibula were seen by myself and interpreted independently show the patient has bilateral tibia-fibula comminuted minimally displaced fracture along with intramedullary nail and screw fixation. These were shown and explained to the patient and the family. Assessment/Plan oMnica Acosta is a 63 y.o. year old female with Tibia/fibula fracture, right, open type I or II, initial encounter Tibia/fibula fracture, left, closed, initial encounter Age-related osteoporosis without current pathological fracture X-rays of bilateral knee joints were seen by myself and interpreted independently which were shown and explained to the patient. Advised to the patient that she has nails which are holding well with the fracture. Since she does not have knee pain she may start and continue with her range of motion of the knee joint as well as the ankle. I reapplied a new dressing to the left [place] superficial wound with sterile dressings. She may continue with the similar dressings and Arun wrap was applied. Patient was advised to leave the wound open to air once this and dries off and forms a scab. Patient will continue with strict nonweightbearing for at least 5-6 more weeks. He will regroup in about 5 to 6 weeks for repeat x-rays of bilateral tibia-fibula and to post lateral and oblique views. Patient will continue with ankle and to prevent deep vein thrombosis. She will also continue the calcium and vitamin D3 and will follow-up with her PCP in future for her metabolic bone disease. Patient will also contact us if she develops any fever chills or rigors or any discharge. She may complete her course of antibiotics and stop these. She may continue with her anticoagulation as advised. All questions were answered today. Patient is happy with the plan. Paperwork was completed. Dr. Octaviano Shipman MD MRCSEd Associate Pr (more content not included)... [facility] 04-30-2024 Miscellaneous Notes Patient is at [facility] she fell and broke both legs and will be transferring to the [facility] for rehab documented in this encounter [facility] 04-30-2024 Telephone encounter Note Patient is at [facility] she fell and broke both legs and will be transferring to the [facility] for rehab [facility] 04-13-2024 History of Present illness Narrative [...] rheumatoid arthritis pain. She was seeing a house principal in [place] prior to coming to [place] and was referred to Rheumatology here but [...] Exam Vitals reviewed. Exam conducted with a supervisor print line present. Constitutional: General: She is not in [...] multiple sites, unspecified whether rheumatoid factor present ([facility]) - [facility] - [place], [place]; Future Refer back to Rheumatology. Importance of modifying disease progression discussed. Stay on Celebrex for now since she has stage 2 chronic kidney disease. 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 She has stage 2 chronic kidney disease with microalbuminuria Diabetic polyneuropathy associated with type 1 diabetes mellitus ([facility]) - gabapentin (NEURONTIN) 100 mg capsule; Take [...] in the morning. [facility]30[facility] Miscellaneous Notes Patient is very upset and would like to ask you some questions like what stage her kidneys are in. She stated if you can call her when you are done with patients today that would be great. [facility] 03-30-[facility]24 Telephone encounter Note Patient is very upset and would like to ask you some questions like what stage her kidneys are in. She stated if you can call her when you are done with patients today that would be great. [facility] 03-29-2024 Miscellaneous Notes Patient called and she is complaining about her drug screen and norco, she said she takes it every day and now she is out. I dont know what you would like to do I sent in few more and then we need to discuss different treatment options Notified and appointment scheduled documented in this encounter [facility] 03-29-2024 Telephone encounter Note Patient called and she is complaining about her drug screen and norco, she said she takes it every day and now she is out. I dont know what you would like to do [facility] 03-29-2024 Telephone encounter Note I sent in few more and then we need to discuss different treatment options [facility] 03-29-2024 Telephone encounter Note Notified and appointment scheduled [facility] 03-27-2024 History of Present illness Narrative Urine specimen obtained for drug screen documented in this encounter [facility] 03-26-2024 History of Present illness Narrative [...] witnessed apnea or headaches. She sees the senior officer as week for type 1 diabetes. The [...] multiple sites, unspecified whether rheumatoid factor present ([facility]) As above. Other fatigue - CBC; Future Check CBC. [place] sleep scale showed normal risk. She was moderate risk with STOPBANG scale. May need further workup Medication monitoring encounter - Drug Screen, Urine; Future Check urine for drugs of abuse. Primary hypertension - Comprehensive metabolic panel; Future Check CMP. Blood pressure at goal. Type 1 diabetes mellitus with diabetic polyneuropathy ([facility]) - Microalbumin - Albumin: Creatinine Urine Ratio; Future Check ACR. Overweight She is overweight. She would benefit from weight loss. Diet exercise and weight loss discussed. Not really able to exercise much due to rheumatoid arthritis documented in this encounter [facility] 02-09-2024 History of Present illness Narrative Images from the original note were not included. Subjective Patient ID: Monica Acsota is a 63 y.o. female. She was at [employer] watching [employer] play [place] and her son put down [...] spasms. Strain of right shoulder, initial encounter [id number] exercises given. Risk of frozen shoulder discussed. She defers physical therapy. Medications as above. Overweight She is overweight. It is contributing to diabetes. She would benefit from weight loss Contusion of left knee, initial encounter Resolved documented in this encounter [facility] 02-07-2024 Miscellaneous Notes ----- Message from BECCA Cordero sent at 12/05/2023 1:22 PM EDT ----- Regarding: controlled substance Due late February, early March for RA Sent myceliat msg documented in this encounter [facility] 02-07-2024 Telephone encounter Note ----- Message from BECCA Cordero sent at 12/05/2023 1:22 PM EDT ----- Regarding: controlled substance Due late February, early March for RA [facility] 02-07-2024 Telephone encounter Note Sent mychart msg [facility] 01-27-2024 History of Present illness Narrative The OARRS/MAPPS database was reviewed today and found to be appropriate. No indication of medication diversion, or non compliance. documented in this encounter [facility] 12-05-2023 History of Present illness Narrative .Subjective Patient ID: Monica Acosta is a 62 y.o. female. She has been taking the hydrocodone for rheumatoid arthritis more so than her low back pain although her low back still gives her pain Her rheumatoid arthritis makes her ache in multiple joints She does not see a house principal for this She has been taking it [...] multiple sites, unspecified whether rheumatoid factor present ([facility]) - HYDROcodone-acetaminophen (NORCO) 7.5-325 mg per tablet; Take 1 tablet by mouth 2 (two) times a day as needed for pain. Status post partial amputation of left foot ([facility]) Diabetic polyneuropathy associated with type 2 diabetes mellitus ([facility]) - TSH; Future Severe depression ([facility]) PAD (peripheral artery disease) ([facility]) Compression fracture of L1 vertebra with routine [...] months for her controlled substance review The OARRS/DrivyS database was reviewed today and found to be appropriate. No indication of medication diversion, or non compliance. BECCA Cordero 12/05/23 1329 documented in this encounter [facility] 11-29-2023 History of Present illness Narrative The OARRS/MAPPS database was reviewed today and found to be appropriate. No indication of medication diversion, or non compliance. BECCA Cordero 11/29/23 0700 documented in this encounter [facility] 11-15-2023 History of Present illness Narrative The OARRS/MAPPS database was reviewed today and found to be appropriate. No indication of medication diversion, or non compliance. Demetra Macario [place], [employer] 11/15/23 0759 documented in this encounter [facility] 10-16-2023 Miscellaneous Notes She has requesting a refill of her controlled substance but she is overdue for an appointment. She needs to set 1 up as soon as possible documented in this encounter [facility] 10-16-2023 Telephone encounter Note She has requesting a refill of her controlled substance but she is overdue for an appointment. She needs to set 1 up as soon as possible [facility] 10-04-2023 Miscellaneous Notes Rx sent in. She is due for a controlled substance recheck next week documented in this encounter [facility] 10-04-2023 Telephone encounter Note Rx sent in. She is due for a controlled substance recheck next week [facility] 07-27-2021 Evaluation note Encounter Date Diagnosis [...] Patient care instructions given in writting by [facility] Home document [employer] Other Evaluation note* Diagnosis Type 1 diabetes mellitus with hyperglycemia (HCC) ([facility])- Primary Essential (primary) hypertension ([facility]) Unspecified essential hypertension Vitamin D deficiency, unspecified Dietary counseling and surveillance Mixed hyperlipidemia ([facility]) Mixed hyperlipidemia Presence of insulin pump (external) (internal) residential (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 ([facility]) Encounter for fitting or adjustment of insulin pump Fitting and adjustment of insulin pump [facility] Diagnosis Rheumatoid arthritis involving multiple sites with positive rheumatoid factor ([facility])- Primary Type I diabetes mellitus with polyneuropathy ([facility]) 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 ([facility]) PAD (peripheral artery disease) ([facility]) Unspecified peripheral vascular disease POTS (postural orthostatic tachycardia syndrome) Unspecified tachycardia Type 1 diabetes mellitus with other circulatory complications ([facility]) Type 1 diabetes mellitus with hyperglycemia (HCC) ([facility]) Encounter for long-term (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 medications Encounter for long-term (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 other medications Dyslipidemia ([facility]) Other 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 hyperlipidemia 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 ([facility]) [facility] Diagnosis Compression fracture of L1 vertebra with routine healing, subsequent encounter [facility] Diagnosis Rheumatoid arthritis involving multiple sites with positive rheumatoid factor ([facility])- Primary Type I diabetes mellitus with polyneuropathy ([facility] 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 ([facility]) PAD (peripheral artery disease) ([facility]) Unspecified peripheral vascular disease POTS (postural orthostatic tachycardia syndrome) Unspecified tachycardia Type 1 diabetes mellitus with other circulatory complications ([facility]) Type 1 diabetes mellitus with hyperglycemia ([facility]) ([facility]) Encounter for long-term (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 medications Encounter for long-term (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 other medications Dyslipidemia ([facility]) Other 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 hyperlipidemia 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 ([facility]) Rheumatoid arthritis involving multiple sites with positive rheumatoid factor ([facility]) documented in this encounter [facility]* Diagnosis Concussion without loss of consciousness, initial encounter- Primary Strain of neck muscle, initial encounter Strain of right shoulder, initial encounter Overweight Contusion of left knee, initial encounter [facility] Diagnosis Rheumatoid arthritis involving multiple sites, unspecified whether rheumatoid factor present ([facility]) [facility] Diagnosis Compression fracture of L1 vertebra with routine healing, subsequent encounter [facility] Diagnosis Compression fracture of L1 vertebra with routine healing, subsequent encounter [facility] Diagnosis Compression fracture of L1 vertebra, sequela- Primary Rheumatoid arthritis involving multiple sites, unspecified whether rheumatoid factor present ([facility]) Other fatigue Medication monitoring encounter Encounter for therapeutic drug monitoring Primary hypertension Unspecified essential hypertension Type 1 diabetes mellitus with diabetic polyneuropathy ([facility]) Overweight [facility] Diagnosis Rheumatoid arthritis involving multiple sites, unspecified whether rheumatoid factor present ([facility]) [facility] Diagnosis Medication monitoring encounter- Primary Encounter for therapeutic drug monitoring Compression fracture of L1 vertebra, sequela Rheumatoid arthritis involving multiple sites, unspecified whether rheumatoid factor present ([facility]) [facility] Diagnosis Rheumatoid arthritis involving multiple sites, unspecified whether rheumatoid factor present ([facility])- Primary Status post partial amputation of left foot ([facility]) Diabetic polyneuropathy associated with type 2 diabetes mellitus ([facility]) Severe depression ([facility]) Depressive disorder, not elsewhere classified PAD (peripheral artery disease) ([facility]) Unspecified peripheral vascular disease Compression fracture of L1 vertebra with routine healing, subsequent encounter Mixed hyperlipidemia documented [facility]* Diagnosis Stage 2 chronic kidney disease due to type 1 diabetes mellitus ([facility])- Primary Rheumatoid arthritis involving multiple sites, unspecified whether rheumatoid factor present ([facility]) 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 ([facility]) Diabetic polyneuropathy associated with type 1 diabetes mellitus ([facility]) Hyperkalemia Hyperpotassemia Compression fracture of L1 vertebra, sequela documented in this encounter [facility]* Diagnosis Rheumatoid arthritis involving multiple sites with positive rheumatoid factor ([facility])- Primary Type I diabetes mellitus with polyneuropathy ([facility]) 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 ([facility]) PAD (peripheral artery disease) ([facility]) Unspecified peripheral vascular disease POTS (postural orthostatic tachycardia syndrome) Unspecified tachycardia Type 1 diabetes mellitus with other circulatory complications ([facility]) Type 1 diabetes mellitus with hyperglycemia ([facility]) ([facility]) Encounter for long-term (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 medications Encounter for long-term (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 other medications Dyslipidemia ([facility]) Other 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 hyperlipidemia 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 ([facility]) Rheumatoid arthritis involving multiple sites with positive rheumatoid factor ([facility]) documented in this encounter [facility]* Diagnosis Rheumatoid arthritis involving multiple sites, unspecified whether rheumatoid factor present ([facility])- Primary Long-term use of Plaquenil Long-term use of leflunomide therapy documented [facility] encounter [facility] Diagnosis Rheumatoid arthritis involving multiple sites with positive rheumatoid factor ([facility])- Primary Type I diabetes mellitus with polyneuropathy ([facility]) 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 ([facility]) PAD (peripheral artery disease) (CMS/HCC) Unspecified peripheral vascular disease POTS (postural orthostatic tachycardia syndrome) Unspecified tachycardia Type 1 diabetes mellitus with other circulatory complications Type 1 diabetes mellitus with hyperglycemia (HCC) ([facility]) Encounter for long-term (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 medications Encounter for long-term (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 other medications Dyslipidemia (CMS/HCC) Other 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 hyperlipidemia residential (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 (CMS/HCC) Rheumatoid arthritis involving multiple sites with positive rheumatoid factor (CMS/HCC) documented in this encounter [facility] note[facility] assessment [facility] Work Phone: Evaluation note* Diagnosis Rheumatoid arthritis involving multiple sites with positive rheumatoid factor (CMS/HCC)- Primary Type I diabetes mellitus with polyneuropathy (CMS/HCC) 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 (CMS/HCC) PAD (peripheral artery disease) ([facility]/HCC) Unspecified peripheral vascular disease POTS (postural orthostatic tachycardia syndrome) Unspecified tachycardia Type 1 diabetes mellitus with other circulatory complications Type 1 diabetes mellitus with hyperglycemia (HCC) ([facility]) Encounter for long-term (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 medications Encounter for long-term (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 other medications Dyslipidemia (CMS/HCC) Other 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 hyperlipidemia residential (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 (CMS/HCC) Type I diabetes mellitus with polyneuropathy (CMS/HCC)- Primary Type 1 diabetes mellitus with hyperglycemia (HCC) ([facility]/HCC) POTS (postural orthostatic tachycardia syndrome) Unspecified tachycardia Rheumatoid arthritis involving multiple sites with positive rheumatoid factor (CMS/HCC) 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 ([facility]/HCC) Hypersomnia Hypersomnia, unspecified documented in this encounter [facility] HealthcareEvaluation [facility]* Diagnosis Rheumatoid arthritis involving multiple sites with positive rheumatoid factor (CMS/HCC)- Primary Type I diabetes mellitus with polyneuropathy (CMS/HCC) 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 (CMS/HCC) PAD (peripheral artery disease) (CMS/HCC) Unspecified peripheral vascular disease POTS (postural orthostatic tachycardia syndrome) Unspecified tachycardia Type 1 diabetes mellitus with other circulatory complications Type 1 diabetes mellitus with hyperglycemia (HCC) ([facility]) Encounter for long-term (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 medications Encounter for long-term (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 other medications Dyslipidemia (CMS/HCC) Other 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 hyperlipidemia residential (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 ([facility]) Type I diabetes mellitus with polyneuropathy ([facility]/HCC)- Primary Type 1 diabetes mellitus with hyperglycemia (HCC) ([facility]) POTS (postural orthostatic tachycardia syndrome) Unspecified tachycardia Rheumatoid arthritis involving multiple sites with positive rheumatoid factor ([facility]) 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 ([facility]) Hypersomnia Hypersomnia, unspecified Rheumatoid arthritis involving multiple sites with positive rheumatoid factor ([facility]) documented in this encounter [facility] HealthcareEvaluation note* Diagnosis Rheumatoid arthritis involving multiple sites with positive rheumatoid factor ([facility])- Primary Type I diabetes mellitus with polyneuropathy ([facility]) 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 ([facility]) PAD (peripheral artery disease) ([facility]) Unspecified peripheral vascular disease POTS (postural orthostatic tachycardia syndrome) Unspecified tachycardia Type 1 diabetes mellitus with other circulatory complications Type 1 diabetes mellitus with hyperglycemia (HCC) ([facility]) Encounter for long-term (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 medications Encounter for long-term (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 other medications Dyslipidemia ([facility]) Other 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 hyperlipidemia 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 ([facility]) Type I diabetes mellitus with polyneuropathy ([facility]/HCC)- Primary Type 1 diabetes mellitus with hyperglycemia (HCC) ([facility]) POTS (postural orthostatic tachycardia syndrome) Unspecified tachycardia Rheumatoid arthritis involving multiple sites with positive rheumatoid factor ([facility]) 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 ([facility]) Hypersomnia Hypersomnia, unspecified Type 1 diabetes mellitus with hyperglycemia (HCC) ([facility])- Primary Essential (primary) hypertension ([facility]) Unspecified essential hypertension Vitamin D deficiency, unspecified Dietary counseling and surveillance Mixed hyperlipidemia ([facility]) Mixed hyperlipidemia Presence of insulin pump (external) (internal) residential (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 ([facility]) Encounter for fitting or adjustment of insulin pump Fitting and adjustment of insulin pump documented in this encounter [facility] HealthcareEvaluation note* Diagnosis Rheumatoid arthritis involving multiple sites with positive rheumatoid factor ([facility])- Primary Type I diabetes mellitus with polyneuropathy ([facility]/HCC) 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 ([facility]) PAD (peripheral artery disease) ([facility]) Unspecified peripheral vascular disease POTS (postural orthostatic tachycardia syndrome) Unspecified tachycardia Type 1 diabetes mellitus with other circulatory complications Type 1 diabetes mellitus with hyperglycemia (HCC) ([facility]) Encounter for long-term (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 medications Encounter for long-term (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 other medications Dyslipidemia ([facility]/HCC) Other 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 hyperlipidemia residential (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 ([facility]) Type I diabetes mellitus with polyneuropathy ([facility])- Primary Type 1 diabetes mellitus with hyperglycemia (HCC) ([facility]) POTS (postural orthostatic tachycardia syndrome) Unspecified tachycardia Rheumatoid arthritis involving multiple sites with positive rheumatoid factor ([facility]) 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 ([facility]) Hypersomnia Hypersomnia, unspecified Chest pain at rest- Primary Unspecified chest pain SOB (shortness of breath) on exertion Shortness of breath 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 ([facility]) Hypersomnia Hypersomnia, unspecified documented in this encounter [facility] HealthcareEvaluation note* Diagnosis Rheumatoid arthritis involving multiple sites with positive rheumatoid factor ([facility])- Primary Type I diabetes mellitus with polyneuropathy ([facility]) 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 ([facility]) PAD (peripheral artery disease) ([facility]) Unspecified peripheral vascular disease POTS (postural orthostatic tachycardia syndrome) Unspecified tachycardia Type 1 diabetes mellitus with other circulatory complications Type 1 diabetes mellitus with hyperglycemia (HCC) ([facility]) Encounter for long-term (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 medications Encounter for long-term (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 other medications Dyslipidemia ([facility]/HCC) Other 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 hyperlipidemia 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 ([facility]) Type I diabetes mellitus with polyneuropathy ([facility]/HCC)- Primary Type 1 diabetes mellitus with hyperglycemia (HCC) ([facility]) POTS (postural orthostatic tachycardia syndrome) Unspecified tachycardia Rheumatoid arthritis involving multiple sites with positive rheumatoid factor ([facility]) 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 ([facility]) Hypersomnia Hypersomnia, unspecified Chest pain at rest- Primary Unspecified chest pain SOB (shortness of breath) on exertion Shortness of breath 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 (CMS/HCC) Hypersomnia Hypersomnia, unspecified POTS (postural orthostatic tachycardia syndrome) Unspecified tachycardia POTS (postural orthostatic tachycardia syndrome)- Primary Unspecified tachycardia Rheumatoid arthritis involving multiple sites with positive rheumatoid factor (CMS/HCC) documented in this encounter [facility] HealthcareEvaluation note* Diagnosis Rheumatoid arthritis involving multiple sites with positive rheumatoid factor (HCC)- Primary Type I diabetes mellitus with polyneuropathy (HCC) 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 PAD (peripheral artery disease) Unspecified peripheral vascular disease POTS (postural orthostatic tachycardia syndrome) Unspecified tachycardia Type 1 diabetes mellitus with other circulatory complications (HCC) Type 1 diabetes mellitus with hyperglycemia (HCC) Encounter for long-term (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 medications Encounter for long-term (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 other medications Dyslipidemia Other 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 hyperlipidemia residential (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 (HCC) Type I diabetes mellitus with polyneuropathy (HCC)- Primary Type 1 diabetes mellitus with hyperglycemia (HCC) POTS (postural orthostatic tachycardia syndrome) Unspecified tachycardia Rheumatoid arthritis involving multiple sites with positive rheumatoid factor (HCC) 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 Hypersomnia Hypersomnia, unspecified Chest pain at rest- Primary Unspecified chest pain SOB (shortness of breath) on exertion Shortness of breath 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 Hypersomnia Hypersomnia, unspecified POTS (postural orthostatic tachycardia syndrome) Unspecified tachycardia 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- Primary Rheumatoid arthritis involving multiple sites with positive rheumatoid factor (HCC) documented in this encounter [facility] HealthcareEvaluation note* Diagnosis Rheumatoid arthritis involving multiple sites with positive rheumatoid factor (HCC)- Primary Type I diabetes mellitus with polyneuropathy (HCC) 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 PAD (peripheral artery disease) Unspecified peripheral vascular disease POTS (postural orthostatic tachycardia syndrome) Unspecified tachycardia Type 1 diabetes mellitus with other circulatory complications (HCC) Type 1 diabetes mellitus with hyperglycemia (HCC) Encounter for long-term (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 medications Encounter for long-term (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 other medications Dyslipidemia Other 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 hyperlipidemia residential (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 (HCC) Type I diabetes mellitus with polyneuropathy (HCC)- Primary Type 1 diabetes mellitus with hyperglycemia (HCC) POTS (postural orthostatic tachycardia syndrome) Unspecified tachycardia Rheumatoid arthritis involving multiple sites with positive rheumatoid factor (HCC) 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 Hypersomnia Hypersomnia, unspecified Chest pain at rest- Primary Unspecified chest pain SOB (shortness of breath) on exertion Shortness of breath 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 Hypersomnia Hypersomnia, unspecified POTS (postural orthostatic tachycardia syndrome) Unspecified tachycardia MDD (major depressive disorder), recurrent episode, moderate (HCC)- Primary Type I diabetes mellitus with polyneuropathy (HCC) Rheumatoid arthritis involving multiple sites with positive rheumatoid factor (HCC) Type 1 diabetes mellitus with hyperglycemia (HCC) POTS (postural orthostatic tachycardia syndrome) Unspecified tachycardia 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 documented [facility] encounter [facility] Narrative - Reported* Type Description Date Medical History diabetes mallitus Medical History chronic depression Medical History high blood pressure Medical History high cholesterol Medical History rheumatoid arthritis Surgical History open heart surgery [employer] ([employer]) Other InstructionsNot on filedocumented in this encounter [...] multiple sites, unspecified whether rheumatoid factor present ([facility]) Zen Flores, DO [address] [facility] [place] [address] Collin Saba MD [address] [address] Referral ID Status Reason Start Date Expiration Date Visits Requested Visits Authorized [id number] Authorized Specialty Services Required 04/13/2024 04/13/2025 1 1 [facility]No reason for referral information [facility] Work Phone: Reason for visit Narrative* Consultation (Routine) - Pending Review Specialty Diagnoses / Procedures Referred By Narendra t Referred To Contact Rheumatology Diagnoses Rheumatoid arthritis involving multiple sites with positive rheumatoid factor ([facility]-HCC) Procedures [place] OFFICE OUTPATIENT VISIT 60-74 MINS HIGH MDM [id number] (SNOMED CT) - AMB REFERRAL TO RHEUMATOLOGY Rudolph Hurt MD [address] [place] [address] Phone: tel: fax: Collin Saba MD [address] [address] Phone: tel: fax: Referral ID Status Reason Start Date Expiration Date V isits Requested Visits Authorized [id number] Pending Review 09/19/2024 03/18/2025 1 1 [facility] Summary Purpose Family History No Family History Records FoundNo Family History Records FoundNo Family History Records FoundNo Family History Records FoundNo Family History Records FoundNo Family History Records FoundNo Family History Records FoundNo Family History Records Found Advance Directives No Advanced Directives Records Found Advance Directive Response Recorded Date/ Time Advance Directives No March 03 2:25pm Hospital Course Note MR#: [id number] [facility] Pt. Name: Monica Acosta Admitted: 06/30/2020 [...] regimen and follow up with the primary senior officer. HOSPITAL COURSE: The patient is a 59-year-old [...] and content) DATE CREATED AUTHOR 10/15/2020 [facility] DATE CREATED AUTHOR AUTHOR'S ORGANIZ ATION 09/23/2021 [facility] DATE CREATED AUTHOR AUTHOR'S ORGANIZ ATION 10/19/2022 [facility] DATE CREATED AUTHOR AUTHOR'S ORGANIZ ATION 04/16/2024 [facility] DATE CREATED AUTHOR AUTHOR'S ORGANIZ ATION 11/21/2024 [facility] DATE CREATED AUTHOR AUTHOR'S ORGANIZ ATION 12/14/2024 [facility] DATE CREATED AUTHOR AUTHOR'S ORGANIZ ATION 03/18/2025 [facility] EPIC DATE CREATED AUTHOR AUTHOR'S ORGANIZ ATION 05/13/2025 [facility] REASON FOR VISIT (unrecogniz ed section [...] Care Teams (unrecognized sec tion and content) Neuroscientist Relationship Specialty Start Date End Date Zen Flores MD [address] [place] [address] PCP - General Family Medicine 08/14/24 Neuroscientist Relationship Specialty Start Date End Date Zen Flores MD [address] [place] [address] PCP - General Family Medicine 08/14/24 Neuroscientist Relationship Specialty Start Date End Date Rudolph Hurt MD [address] [place] [address] PCP - General Family Medicine 09/19/24 Neuroscientist Relationship Specialty Start Date End Date Zen Flores MD [address] [place] [address] PCP - General Family Medicine 08/14/24 Neuroscientist Relationship Specialty Start Date End Date Zen Flores DO [address] [place] [address] PCP - General Family Medicine 09/18/19 Neuroscientist Relationship Specialty Start Date End Date Zen Flores DO [address] [place] [address] PCP - General Family Medicine 09/18/19 Neuroscientist Relationship Specialty Start Date End Date Rudolph Hurt MD [address] [place] [address] PCP - General Family Medicine 09/19/24 Neuroscientist Relationship Specialty Start Date End Date SandraZen DO [address] [place] [address] PCP - General Family Medicine 09/18/19 Neuroscientist Relationship Specialty Start Date End Date SandraZen [address], [place] [address] PCP - General Family Medicine 09/18/19 Neuroscientist Relationship Specialty Start Date End Date MichiZen burns DO [address], [place] [address] PCP - General Family Medicine 09/18/19 Neuroscientist Relationship Specialty Start Date End Date SandraZen DO [address] [place] [address] PCP - General Family Medicine 09/18/19 Neuroscientist Relationship Specialty Start Date End Date SandraZen [address] [place] [address] PCP - General Family Medicine 09/18/19 Neuroscientist Relationship Specialty Start Date End Date Zen Flores DO [address], [place] [address] PCP - General Family Medicine 09/18/19 Neuroscientist Relationship Specialty Start Date End Date ChantaljazzyZen burns DO [address], [place] [address] PCP - General Family Medicine 09/18/19 Neuroscientist Relationship Specialty Start Date End Date Rudolph Hurt MD [address] [place] [id number] PCP - General Family Medicine 09/19/24 Neuroscientist Relationship Specialty Start Date End Date Rudolph Hurt MD [address] [place] [address] PCP - General Family Medicine 09/21/24 Neuroscientist Relationship Specialty Start Date End Date Rudolph Hurt MD [address] [place] [address] PCP - General Family Medicine 09/19/24 Neuroscientist Relationship Specialty Start Date End Date Rudolph Hurt MD [address] [place] [address] PCP - General Family Medicine 09/19/24 Team Status: Active Member Role Status Dates Zen Flores DO Primary Care Provider Active Team Status: Inactive Member Role Status Dates Zen Flores DO Primary Care Provider Active Start: December 06, 2024 End: December 06, 2024 Radha Brannon DPM MS Attending Provider Active Start: December 06, 2024 End: December 06, 2024 Neuroscientist Relationship Specialty Start Date End Date Rudolph Hurt MD [address] [place] [address] PCP - General Family Medicine 09/19/24 Neuroscientist Relationship Specialty Start Date End Date Rudolph Hurt MD [address] [place] [address] PCP - General Family Medicine 09/19/24 Neuroscientist Relationship Specialty Start Date End Date Rudolph Hurt MD [address] [place] [address] PCP - General Family Medicine 09/19/24 Neuroscientist Relationship Specialty Start Date End Date Rudolph Hurt MD [address] [place] [address] PCP - General Family Medicine 09/19/24 Neuroscientist Relationship Specialty Start Date End Date Rudolph Hurt MD [address] [place] [address] PCP - General Family Medicine 09/19/24 Neuroscientist Relationship Specialty Start Date End Date Rudolph Hurt MD [address] [place] [address] PCP - General Family Medicine 09/19/24 Neuroscientist Relationship Specialty Start Date End Date Rudolph Hurt MD [address] [place] [address] PCP - General Family Medicine 09/19/24 Neuroscientist Relationship Specialty Start Date End Date Rudolph Hurt MD [address] [place] [address] PCP - General Family Medicine 09/19/24 Team Status: Active Member Role Status Dates Rudolph Hurt MD Primary Care Provider Active Team Status: Inactive Member Role Status Dates Silvia Blank APRN Attending Provider Active Start: March 11, 2025 End: March 11, 2025 Rudolph Hurt MD Primary Care Provider Active S tart: March 11, 2025 End: March 11, 2025 Neuroscientist Relationship Specialty Start Date End Date Rudolph Hurt MD [address] [place] [address] PCP - General Family Medicine 09/19/24 Neuroscientist Relationship Specialty Start Date End Date Rudolph Hurt MD [address] [place] [address] PCP - General Family Medicine 09/19/24 Goals [...] BE BASED ON THE PRIMARY CLINICAL RECORDS. [facility] [employer] [facility]. provides no warranty or guarantee of the accuracy or completeness of information in this document.
== END 2025-05-29 09:48 | disposition home or self-care (01) ==
LOC: WC 09:48
PROVIDERS: PCP Family Medicine; Visit Provider Podiatrist Foot & Ankle Surgery
DX: L97.814 Non-pressure chronic ulcer of other part of right lower leg with necrosis of bone (principal)
CPT/HCPCS: G0463

== ENCOUNTER 2025-06-19 09:09 | Outpatient (OUT) | payer MEDICARE, MEDICAID, SELFPAY ==
--- OUTSIDE RECORDS SUMMARY | 2025-06-19 09:11 | XMS_ITS | Encounter Summary ---
Author Organization [facility] Address [id number] [place] [address] Care Team Providers Care Intervention Specialist Name Role Phone Rudolph Peter MD Primary Care Provider [phone] Reason for Visit * Reason Comments Med Refill Encounter Details Date Type Department Care Team (Late st Contact Info) Description 04/10/2023 Refill [facility] - Family Medicine [address] [place] [address] Radha Ohara, MAIL MESSENGER CONTRACTOR-BOTTLE SELECTOR [address] [place] [address] Social History Tobacco Use Types Packs/Day Years Used Date Smoking Tobacco: Former Cigarettes 2.5 24 1 976 - 06/06/1997 Smokeless Tobacco: Never Alcohol Use Standard Drinks/Week Comments Not Currently 0 (1 standard drink = 0.6 oz pur e alcohol) Social Connection and Isolation Panel Answer Date Recorded In a typical week, how many times do you talk on the phone with family, friends, or neighbors? More than three times a week 11/19/2022 How often do you get togethe r with friends or relatives? More than three times a week 11/19/2022 How often do you attend chur ch or pentecostalism services? More than 4 times per year 11/19/2022 Do you belong to any clubs o r organizations such as alevism groups, unions, fraternal or athletic groups, or [...] Answer Date Recorded Total Score 16 04/01/2023 [facility] of Occupat ional Health - Occupational [...] Recorded Do you need help finding a [facility] and/or a training [...] Noted Time PHQ-9 Depression Total Score: 16 04/01/ 023 10:13 AM EDT documented as of this encounter Care Teams Intervention Specialist Relationship Specialty Start Date End Date Rudolph Peter MD PCP - General Family Medicine 09/21/24 documented as of this encounter
--- OUTSIDE RECORDS SUMMARY | 2025-06-19 09:11 | XMS_ITS | Clinical Summary ---
Author Organization [facility] Address [address] [place] [address] Care Team Providers Care Saw Boss Name Role Phone Rudolph Peter MD Primary Care Provider Allergies Active Allergy Reactions Criticality Noted Date Comments Bee Venom 06/03/2021 Other reaction(s): TROUBLE BREATHING Hydromorphone 07/01/2024 Lisinopril Other 01/30/2020 Other Reaction(s): LOW BLOOD PRESSURE Wound Dressing Adhesive High 06/03/2021 BLISTERS (IF ON FOR TOO LONG) Medications aspirin 81 MG EC tablet Take 81 mg by mouth Daily Active nitroglycerin (Nitrostat) 0.[address] 0.4 mg under the tongue every 5 (five) minutes if needed for chest pain Active Insulin Aspart (NovoLOG) 100 UNIT/ML solutionIndicatio ns:Type 1 diabetes mellitus with hyperglycemia (HCC) Inject 50 Units as directed Daily 60 mL 1 08/21/20 24 Active insulin aspart (NovoLOG, Fiasp) 100 UNIT/ML patient supplied pump Inject under the skin continuously Active levothyroxine (Synthroid, Levoxyl) 75 MCG tabletIndications :Dyslipidemia Take 1 tablet (75 mcg) by mouth in the morning. Take before meals. 90 tablet 3 09/24/19 25 Active methocarbamol (Robaxin) 500 MG tabletIndications :Rheumatoid arthritis involving multiple sites with positive rheumatoid factor (HCC) Take 1 tablet (500 mg) by mouth every 8 (eight) hours if needed for muscle spasms 90 tablet 09/24/19 25 Active DULoxetine (Cymbalta) [address] capsuleIndication s:Generalized anxiety disorder Take 1 capsule (60 mg) by mouth Daily Do not crush or chew. 30 capsule 5 10/04/19 25 026 Active leflunomide (Arava) 10 MG tablet Take 10 mg by mouth Daily Active albuterol HFA 90 mcg/act inhalerIndication s:SOB (shortness of breath) on exertion Inhale 2 puffs every 4 (four) hours if needed for shortness of breath or wheezing 18 g 2 01/16/20 25 Active atenolol (Tenormin) 50 MG tabletIndications :POTS (postural orthostatic tachycardia syndrome) TAKE 1 TABLET BY MOUTH IN THE MORNING 90 tablet 3 01/30/20 25 Active atorvastatin (Lipitor) 80 MG tabletIndications :Coronary artery disease involving te-moak coronary artery of te-moak heart without angina pectoris Take 1 tablet (80 mg) by mouth Daily 90 tablet 3 02/27/20 25 Active DULoxetine (Cymbalta) [address] capsuleIndication s:MDD (major depressive disorder), recurrent episode, moderate (HCC) Take 1 capsule (30 mg) by mouth Daily Do not crush or chew. 30 capsule 5 03/14/20 25 Active celecoxib (CeleBREX) 200 MG capsuleIndication s:Rheumatoid arthritis involving multiple sites with positive rheumatoid factor (HCC) Take 1 capsule (200 mg) by mouth in the morning and 1 capsule (200 mg) before bedtime. 180 capsule 3 03/14/20 25 Active insulin aspart (NovoLOG) 100 UNIT/ML penIndications:Ty pe 1 diabetes mellitus with hyperglycemia (HCC) USE 80 TOTAL UNITS DAILY CONTINUOUSLY WITH INSULIN PUMP. 80 mL 3 05/07/20 25 Active Active Problems Problem Noted Date Diagnosed Date MDD (major depressive disord er), recurrent episode, moderate 03/14/2025 Assessment & Plan (03/14/2025 2:04 PM EDT): Symptoms worse and increase cymbalta to 90 mg daily. Rheumatoid arthritis with rh eumatoid factor of multiple sites without organ or systems involvement 01/24/2025 Unsteadiness on feet 01/24/2025 SOB (shortness of breath) on exertion 01/15/2025 Assessment & Plan (01/15/2025 12:34 PM EDT): Continued SOB and former smoker. Check PFTs and start albuterol PRN. Hypersomnia 12/10/2024 Assessment & Plan (01/15/2025 12:34 PM EDT): Signs of MARA and check sleep study. Assessment & Plan (12/10/2024 2:53 PM EDT): Signs of MARA and check sleep study. PAD (peripheral artery disease) 09/19/2024 Assessment & Plan (09/19/2024 12:07 PM EST): Not lightheaded and monitor. Return to vascular. Coronary artery disease invo lving te-moak coronary artery of te-moak heart without angina pectoris 09/19/2024 Assessment & Plan (03/14/2025 2:03 PM EDT): Follow with cardiology. Assessment & Plan (01/15/2025 12:34 PM EDT): Check stress test and follow with cardiology. Assessment & Plan (12/10/2024 2:53 PM EDT): Feels worse and follow up with cardiology. Assessment & Plan (09/19/2024 12:07 PM EST): No pain and continue medication. Recommend return to cardiology. Rheumatoid arthritis involvi ng multiple sites with positive rheumatoid factor 09/19/2024 Assessment & Plan (03/14/2025 2:04 PM EDT): Continued pain and deformity. Follow with rheum. Assessment & Plan (12/10/2024 2:54 PM EDT): Continued pain and deformity. Follow with rheum. Assessment & Plan (09/19/2024 12:14 PM EST): Continued pain and deformity. Check labs and refer to rheumatology. Resume methotrexate and folic acid. Resume norco. Discussed risks and benefits of opiate therapy. Warned medication is narcotic and risk of addiction. OARRS reviewed. Type 1 diabetes mellitus with hyperglycemia 09/05 Assessment & Plan (03/14/2025 2:04 PM EDT): BS stable and follow with endo. Assessment & Plan (12/10/2024 2:54 PM EDT): BS stable and follow with endo. Assessment & Plan (09/19/2024 12:14 PM EST): BS stable and follow with endo. Type I diabetes mellitus with polyneuropathy Assessment & Plan (03/14/2025 2:04 PM EDT): Symptoms stable and use norco PRN. Assessment & Plan (12/10/2024 2:54 PM EDT): Symptoms stable and continue neurontin. Assessment & Plan (09/19/2024 12:14 PM EST): Symptoms stable and continue neurontin. POTS (postural orthostatic tachycardia syndrome) 09/19/2024 Assessment & Plan (03/14/2025 2:04 PM EDT): Symptoms stable and increase fluids. Follow with cardiology. 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 Check lexiscan cardiolyte stress test. Follow with cardiology. Essential (primary) hypertension 07/18/2024 09/19/2024 Dietary counseling and surveillance 07/18/2024 09/19/2024 Encounters Date Type Department Care Team Description 05/28/2025 Travel 05/07/2025 Telephone [facility] [address] [place] [address] Zeyad Tate MD Med Refill 04/15/2025 Travel from Last 3 Months Immunizations Immunization [...] or pharmacy? Never 09/12/2024 Social Connection and Isolation Panel Answer Date Recorded In a typical week, how many times do you talk on the phone with family, friends, or neighbors? More than three times a week 09/12/2024 How often do you get togethe r with friends or relatives? More than three times a week 09/12/2024 How often do you attend chur or sikh services? More than 4 times [...] care, and heating? Not very hard 09/12/2024 [facility] - [facility] Questionnaire Answer Date Recorded [...] time in the past 12 m [facility], were you homeless or living in a long term (including now)? No 09/12/2024 Comments Unknown Sex and Gender Information Value Date Recorded Sex Assigned at Not on file Legal Sex Female 11:21 PM EDT Gender Identity Not on file Sexual Orientation Straight 05/04/2023 9: 27 AM EDT Last Filed Vital Signs Vital Sign Reading Time Taken Comments Blood Pressure 118/58 03/14/2025 1:27 PM EDT Pulse 89 03/14/2025 1:27 PM EDT Temperature 36.2 C (97.1 F) 03/14/2025 1:27 PM EDT Respiratory Rate 20 03/14/2025 1:27 PM EDT Oxygen Saturation 95% 03/14/2025 1:27 PM EDT Inhaled Oxygen Concentration - - Weight 83 kg (183 lb) 03/14/2025 1:27 PM EDT Height 170.2 cm (5' 7 ) 03/14/2025 1:27 PM EDT Body Mass Index 28.66 03/14/2025 1:27 PM EDT Plan of Treatment Not on file Insurance [employer] MEDICARE ADVANTAGE MEDICAID [place] Care Teams Saw Boss Relationship Specialty Start Date End Date Rudolph Peter MD PCP - General Family Medicine 09/19/24
--- OUTSIDE RECORDS SUMMARY | 2025-06-19 09:11 | XMS_ITS | Encounter Summary ---
Author Organization [facility] Address [id number] [address] [place] [address] Care Team Providers Care Settlement Technician Name Role Phone Rudolph Peter MD Primary Care Provider [phone] Encounter Details Date Type Department Care Team (Late st Contact Info) Description 03/29/2024 Orders Only [facility] - Family Medicine [address] [place] [address] Zen Viera, DO [address], [place] [address] Social History Tobacco Use Types Packs/Day Years [...] often do you attend chur ch or buddhist services? More than 4 times per year 11/19/2022 Do you belong to any clubs o r organizations such as taoist groups, unions, fraternal or athletic groups, or [...] Answer Date Recorded Total Score 17 03/26/2024 [facility] of Occupat ional Health - Occupational Stress [...] a purpose and direction in my life. Rocíoith er Agree nor Disagree 11/19/2022 Comments No [...] documented as of this encounter Care Teams Settlement Technician Relationship Specialty Start Date End Date Rudolph Peter MD PCP - General Family Medicine 09/21/24 documented as of this encounter
--- OUTSIDE RECORDS SUMMARY | 2025-06-19 09:11 | XMS_ITS | Encounter Summary ---
Author Organization [facility] Address [id number] [address] [place] [address] Care Team Providers Care Supervisor Garment Manufacturing Name Role Phone Rudolph Peter MD Primary Care Provider [phone] Reason for Visit * Reason Onset Date Comments Med Refill 08/24/2022 Encounter Details Date Type Department Care Team (Late st Contact Info) Description 08/24/2022 Refill [facility] - Family Medicine [address] [place] [address] Zen Viera, DO [address] [facility], [place] [address] Compression fracture of L1 vertebra with routine [...] documented as of this encounter Care Teams Supervisor Garment Manufacturing Relationship Specialty Start Date End Date Rudolph Peter MD PCP - General Family Medicine 09/21/24 documented as of this encounter
--- OUTSIDE RECORDS SUMMARY | 2025-06-19 09:11 | XMS_ITS | Encounter Summary ---
Author Organization [facility] Address [id number] [address] [place] [address] Care Team Providers Care Investment Counselor Name Role Phone Rudolph Peter MD Primary Care Provider [phone] Encounter Details Date Type Department Care Team (Late st Contact Info) Description 02/08/2024 Orders Only [facility] - Family Medicine [address] [place] [address] External, Scanning Provider Social History Tobacco Use [...] any clubs o r organizations such as caodaism groups, unions, fraternal or athletic groups, or [...] Answer Date Recorded Total Score 12 02/09/2024 [facility] of Occupat ional Health - Occupational [...] Recorded Do you need help finding a [facility] career [facility] and/or a training [...] documented as of this encounter Care Teams Investment Counselor Relationship Specialty Start Date End Date Rudolph Peter MD PCP - General Family Medicine 09/21/24 documented as of this encounter
--- OUTSIDE RECORDS SUMMARY | 2025-06-19 09:11 | XMS_ITS | Encounter Summary ---
Author Organization [facility] Address [address] [place] [address] Care Team Providers Care Well Shooter Name Role Phone Rudolph Peter MD Primary Care Provider [phone] Encounter Details Date Type Department Care Team (Late st Contact Info) Description 01/01/[address] [facility] [address] [place] [address] Rudolph Peter MD [address] [place] [address] Social History Tobacco Use Types Packs/Day Years [...] How often do you attend chur or shinto services? More than 4 times [...] care, and heating? Not very hard 09/12/2024 [facility] of Occupat ional Health - Occupational Stress [...] any time in the past [address] [facility], were you homeless or living in a nursing home (including now)? No 09/12/2024 Comments Unknown Sex [...] on filedocumented in this encounter Care Teams Well Shooter Relationship Specialty Start Date End Date Rudolph Peter MD PCP - General Family Medicine 09/19/24 documented as of this encounter
--- OUTSIDE RECORDS SUMMARY | 2025-06-19 09:11 | XMS_ITS | Encounter Summary ---
Author Organization [facility] Address [id number] [address] [place] [address] Care Team Providers Care Sock Knitting Machine Operator Name Role Phone Rudolph Peter MD Primary Care Provider [phone] Encounter Details Date Type Department Care Team (Late st Contact Info) Description 09/13/2022 Telephone [facility] [address] [place] [id number] Katelynn Jean CMA Social History Tobacco Use [...] documented as of this encounter Care Teams Sock Knitting Machine Operator Relationship Specialty Start Date End Date Rudolph Peter MD PCP - General Family Medicine 09/21/24 documented as of this encounter
--- OUTSIDE RECORDS SUMMARY | 2025-06-19 09:11 | XMS_ITS | Encounter Summary ---
Author Organization [facility] Address [address] [place] [address] Care Team Providers Care Watch Repairer Name Role Phone Rudolph Peter MD Primary Care Provider Encounter Details Date Type Department Care Team (Late st Contact Info) Description 12/17/[address] [facility] [address] [place] [address] Rudolph Peter MD [address] [place] [address] Social History Tobacco Use Types Packs/Day Years [...] How often do you attend chur or taoist services? More than 4 times per year [...] care, and heating? Not very hard 09/12/2024 [facility] of Occupat ional Health - Occupational Stress [...] any time in the past 12 m [facility], were you homeless or living in a longterm (including now)? No 09/12/2024 Comments Unknown Sex [...] on filedocumented in this encounter Care Teams Watch Repairer Relationship Specialty Start Date End Date Rudolph Peter MD PCP - General Family Medicine 09/19/24 documented as of this encounter
--- OUTSIDE RECORDS SUMMARY | 2025-06-19 09:11 | XMS_ITS | Encounter Summary ---
Author Organization [facility] Address [id number] [address] [place] [address] Care Team Providers Care Pearl Digger Name Role Phone Rudolph Peter MD Primary Care Provider [phone] Encounter Details Date Type Department Care Team (Late st Contact Info) Description 03/31/2023 Orders Only [facility] - Family Medicine [address] [place] [address] External, Scanning Provider Social History Tobacco Use [...] any clubs o r organizations such as faith groups, unions, fraternal or athletic groups, or [...] Answer Date Recorded Total Score 16 04/01/2023 [facility] of Occupat ional Health - Occupational [...] Do you need help finding a [facility] career center and/or a training program? No [...] documented as of this encounter Care Teams Pearl Digger Relationship Specialty Start Date End Date Rudolph Peter MD PCP - General Family Medicine 09/21/24 documented as of this encounter
--- OUTSIDE RECORDS SUMMARY | 2025-06-19 09:11 | XMS_ITS | Encounter Summary ---
Author Organization [facility] Address [id number] [address] [place] [address] Care Team Providers Care Machine Greaser Name Role Phone Rudolph Peter MD Primary Care Provider [phone] Encounter Details Date Type Department Care Team (Late st Contact Info) Description 02/07/2023 Orders Only [facility] - Family Medicine [address] [place] [address] External, Scanning Provider Social History Tobacco Use [...] often do you attend chur ch or confucianist services? More than 4 times per year 11/19/2022 Do you belong to any clubs o r organizations such as jew groups, unions, fraternal or athletic groups, or [...] Answer Date Recorded Total Score 10 12/27/2022 [facility] of Occupat ional Health - [...] Noted Time PHQ-9 Depression Total Score: 10 12/27/ 023 10:54 AM EDT documented as of this encounter Care Teams Machine Greaser Relationship Specialty Start Date End Date Rudolph Peter MD PCP - General Family Medicine 09/21/24 documented as of this encounter
--- OUTSIDE RECORDS SUMMARY | 2025-06-19 09:11 | XMS_ITS | Encounter Summary ---
Author Organization [facility] tem Address [id number] [address] [place] [address] Care Team Providers Care Training Systems Officer Name Role Phone Rudolph Peter MD Primary Care Provider [phone] Encounter Details Date Type Department Care Team (Late st Contact Info) Description 08/09/2022 Orders Only [facility] - Family Medicine [address] [place] [address] Zen Viera, DO [address] [place] [address] Social History Tobacco Use Types Packs/Day Years [...] on filedocumented in this encounter Care Teams Training Systems Officer Relationship Specialty Start Date End Date Rudolph Peter MD PCP - General Family Medicine 09/21/24 documented as of this encounter
--- OUTSIDE RECORDS SUMMARY | 2025-06-19 09:11 | XMS_ITS | Encounter Summary ---
Author Organization [facility] Address [id number] [address] [place] [address] Care Team Providers Care Waitangi Tribunal Member Name Role Phone Rudolph Peter MD Primary Care Provider [phone] Encounter Details Date Type Department Care Team (Late st Contact Info) Description 04/05/2023 Orders Only [facility] - Family Medicine [address] [place] [address] Dario Love, DO [address] [place] [address] Social History Tobacco Use Types Packs/Day Years [...] any clubs o r organizations such as amish groups, unions, fraternal or athletic groups, or [...] Answer Date Recorded Total Score 16 04/01/2023 [facility] of Occupat ional Health - Occupational Stress [...] documented as of this encounter Care Teams Waitangi Tribunal Member Relationship Specialty Start Date End Date Rudolph Peter MD PCP - General Family Medicine 09/21/24 documented as of this encounter
--- OUTSIDE RECORDS SUMMARY | 2025-06-19 09:11 | XMS_ITS | Encounter Summary ---
Author Organization [employer] [facility] Address [id number] [address] [place] [address] Care Team Providers Care Best Second Jobs Name Role Phone Rudolph Peter MD Primary Care Provider [phone] Encounter Details Date Type Department Care Team (Late st Contact Info) Description 08/25/2022 Telephone [facility] [address] [address] Katelynn Jean CMA Social History Tobacco Use [...] documented as of this encounter Care Teams Best Second Jobs Relationship Specialty Start Date End Date Rudolph Peter MD PCP - General Family Medicine 09/21/24 documented as of this encounter
--- OUTSIDE RECORDS SUMMARY | 2025-06-19 09:11 | XMS_ITS | Encounter Summary ---
Author Organization [employer] [facility] Address [id number] [address] [place] [address] Care Team Providers Care Field Advisor Name Role Phone Rudolph Peter MD Primary Care Provider Encounter Details Date Type Department Care Team (Late st Contact Info) Description 03/31/2023 [facility]phone [facility] [address] [place] [address] Mariya Nascimento CMA Social History Tobacco Use [...] Answer Date Recorded Total Score 16 04/01/2023 [facility] of Occupat ional Health - Occupational Stress [...] Recorded Do you need help finding a [facility] career [facility] and/or a training program? [...] a purpose and direction in my life. Alith er Agree nor Disagree 11/19/2022 Comments No [...] from ER, looks like she was at [facility] on March 29. I called Med [...] documented as of this encounter Care Teams Field Advisor Relationship Specialty Start Date End Date Rudolph Peter MD PCP - General Family Medicine 09/21/24 documented as of this encounter
--- OUTSIDE RECORDS SUMMARY | 2025-06-19 09:11 | XMS_ITS | Encounter Summary ---
Author Organization [facility] Address [address] [place] [address] Care Team Providers Care Certified Medicine Aide Name Role Phone Rudolph Peter MD Primary Care Provider [phone] Encounter Details Date Type Department Care Team (Late st Contact Info) Description 01/01/[address] [facility] [address] [place] [address] Rudolph Peter MD [address] [place] [address] Social History Tobacco Use Types Packs/Day Years [...] How often do you attend chur or sikhism services? More than 4 times per year [...] care, and heating? Not very hard 09/12/2024 [facility] of Occupat ional Health - Occupational Stress [...] any time in the past 12 m [facility], were you homeless or living in a fpc (including now)? No 09/12/2024 Comments Unknown Sex [...] on filedocumented in this encounter Care Teams Certified Medicine Aide Relationship Specialty Start Date End Date Rudolph Peter MD PCP - General Family Medicine 09/19/24 documented as of this encounter
--- OUTSIDE RECORDS SUMMARY | 2025-06-19 09:11 | XMS_ITS | Encounter Summary ---
Author Organization [facility] Sys tem Address [facility] [id number] [address] [place] [address] Care Team Providers Care Facility Service Manager Name Role Phone Rudolph Peter MD Primary Care Provider [phone] Encounter Details Date Type Department Care Team (Late st Contact Info) Description 03/03/2023 Orders Only [facility] Internal Medicine - Family Medicine [address] [place] [address] Zen Viera, DO [address], [place] [address] Social History Tobacco Use Types Packs/Day Years [...] often do you attend chur ch or hindu services? More than 4 times per year [...] Answer Date Recorded Total Score 10 12/27/2022 [facility] [place] of Occupat ional Health - Occupational Stress [...] Do you need help finding a l al career center and/or a training program? No [...] documented as of this encounter Care Teams Facility Service Manager Relationship Specialty Start Date End Date Rudolph Peter MD PCP - General Family Medicine 09/21/24 documented as of this encounter
--- OUTSIDE RECORDS SUMMARY | 2025-06-19 09:11 | XMS_ITS | Encounter Summary ---
Author Organization [facility] Sys tem Address [facility] [place][id number] [address] [place] [address] Care Team Providers Care Blankbook Forwarder Name Role Phone Rudolph Peter MD Primary Care Provider [phone] Encounter Details Date Type Department Care Team (Late st Contact Info) Description 07/12/2022 Orders Only [facility] Family Medicine [address] [place] [address] Ref Prov, [place] [address] Social History Tobacco Use Types Packs/Day Years [...] on filedocumented in this encounter Care Teams Blankbook Forwarder Relationship Specialty Start Date End Date Rudolph Peter MD PCP - General Family Medicine 09/21/24 documented as of this encounter
--- OUTSIDE RECORDS SUMMARY | 2025-06-19 09:12 | XMS_ITS | Encounter Summary ---
Author Organization [facility] Sys tem Address [facility] [id number] [address] [place] [address] Care Team Providers Care Game Author Name Role Phone Rudolph Peter MD Primary Care Provider [phone] Reason for Visit * Reason Comments Med Refill Encounter Details Date Type Department Care Team (Late st Contact Info) Description 06/01/2022 Refill [facility] Internal Medicine - Family Medicine [address] [place] [address] Zen Viera, DO [address] [facility], [place] [address] Social History Tobacco Use Types Packs/Day Years [...] on filedocumented in this encounter Care Teams Game Author Relationship Specialty Start Date End Date Rudolph Peter MD PCP - General Family Medicine 09/21/24 documented as of this encounter
--- OUTSIDE RECORDS SUMMARY | 2025-06-19 09:12 | XMS_ITS | Encounter Summary ---
Author Organization [employer] Sys tem Address [facility] [place][id number] [address] [place] [address] Care Team Providers Care Literacy Coordinator Name Role Phone Rudolph Peter MD Primary Care Provider [phone] Reason for Visit * Reason Comments Med Refill Encounter Details Date Type Department Care Team (Late st Contact Info) Description 06/03/2025 Refill [facility] Rhe[facility]ology [address] [facility] [address] [place] [id number] Belgica Saba MD [address] [facility] [address] [place] [address] Rheumatoid arthritis involving multiple sites, unspecified whether rheumatoid factor present ([facility]) Social History Tobacco Use Types Packs/Day Years [...] How often do you attend chur or oriental orthodox services? More than 4 times per year 11/19/2022 Do you belong to any clubs o r organizations such as rastafarian groups, unions, fraternal or athletic groups, or [...] Answer Date Recorded Total Score 16 04/13/2024 [facility] [place] of Occupat ional Health - Occupational Stress [...] as of this encounter Visit Diagnoses Diagnosis Rheumatoid arthritis involving multiple sites, unspecified whether rheumatoid factor present ([facility]) documented in this encounter Additional Health Concerns Assessment Noted Time PHQ-9 Depression Total Score: 16 024 11:42 AM EDT documented as of this encounter Care Teams Literacy Coordinator Relationship Specialty Start Date End Date Rudolph Peter MD PCP - General Family Medicine 09/21/24 documented as of this encounter
--- OUTSIDE RECORDS SUMMARY | 2025-06-19 09:12 | XMS_ITS | Encounter Summary ---
Author Organization [employer] Sys tem Address [facility] [place]-[id number] [address] [place] [address] Care Team Providers Care Telehealth Coordinator Name Role Phone Rudolph Peter MD Primary Care Provider [phone] Encounter Details Date Type Department Care Team (Late st Contact Info) Description 04/16/2024 [facility] [address] [place] [address] Humza Celeste CMA Social History Tobacco Use [...] often do you attend chur ch or quaker services? More than 4 times per year [...] Answer Date Recorded Total Score 16 04/13/2024 [facility] of Occupat ional Health - Occupational [...] Recorded Do you need help finding a [facility] career [facility] and/or a training [...] is now ok. I will send in [employer] if she still agrees. Her GFR is stable at 70 which is stage 2 chronic kidney disease. I called pt and read result note. Pt verbally states she understands. She is agreeable to [facility] and pharmacy is [facility] documented in this encounter Plan of Treatment Not on file documented as of this encounter Visit Diagnoses Not on filedocumented in this encounter Additional Health Concerns Assessment Noted Time PHQ-9 Depression Total Score: 16 024 11:42 AM EDT documented as of this encounter Care Teams Telehealth Coordinator Relationship Specialty Start Date End Date Rudolph Peter MD PCP - General Family Medicine 09/21/24 documented as of this encounter
--- OUTSIDE RECORDS SUMMARY | 2025-06-19 09:12 | XMS_ITS | Encounter Summary ---
Author Organization [employer] Address [facility] [place][id number] [address] [place] [address] Care Team Providers Care Flash Ranging Crewmember Name Role Phone Rudolph Peter MD Primary Care Provider Reason for Visit * Reason Comments Med Refill Encounter Details Date Type Department Care Team (Late st Contact Info) Description 10/27/2022 Refill [facility] - Medical Oncology [address] [place] [address] Zen Viera, DO [address] [facility], [place] [address] Social History Tobacco Use Types Packs/Day Years [...] documented as of this encounter Care Teams Flash Ranging Crewmember Relationship Specialty Start Date End Date Rudolph Peter MD PCP - General Family Medicine 09/21/24 documented as of this encounter
--- OUTSIDE RECORDS SUMMARY | 2025-06-19 09:12 | XMS_ITS | Clinical Summary ---
Author Organization [facility] Address [address] [place] [address] Care Team Providers Care Healthcare Administration Internship Name Role Phone Rudolph Peter MD Primary Care Provider [phone] Allergies Active Allergy Reactions Criticality Noted Date [...] once a week 5 Active HYDROcodone-ac etaminophen ([place]) 5-325 mg tablet Take 1 tablet by mouth every 4 (four) hours if needed for severe pain (8-10 pain score). Active aspirin 81 mg EC tablet Take 81 mg by mouth in the morning. Active cetirizine (ZyrTEC) 10 mg tablet Take 10 mg by mouth in the morning. Active Active Problems Problem Noted Date Diagnosed Date Type 1 diabetes mellitus with hyperglycemia 09/05 Dyslipidemia 07/18/2024 snf (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 07/18/2024 Presence of [...] Encounters Date Type Department Care Team Description 05/08/2025 2:45 PM EDT Follow-Up [facility] Orthopa[facility]ics [address] [place] [address] [place] [address] Christian Shipman MD Chronic osteomyelitis with draining sinus, right tibia and fibula ([facility]) (Primary Dx); Tibia/fibula fracture, right, open type I or II, initial encounter; Tibia/fibula fracture, left, closed, initial encounter; Age-related osteoporosis without current pathological fracture; Diabetic polyneuropathy associated with type 1 diabetes mellitus ([facility]) 05/08/2025 1:32 PM EDT - 05/08/2025 11:59 PM EDT Hospital Encounter [facility] X-Ray Imaging [address] [place] [address] [place] [id number] Tibia/fibula fracture, right, open type I or II, initial encounter; Tibia/fibula fracture, left, closed, initial encounter Discharge Disposition: Home or Self Care (01) from Last 3 Months Immunizations Immunization Administration [...] drink = 0.6 oz pur e alcohol) [facility] Utilities Answer Date Recorded In the past 12 months has [facility] [employer] gas, oil, or water [employer] threatened to shut off services in your [...] Date Recorded Patient Health Questionnaire-2 Score 0 05/08/2025 Transportation Answer Date Recorded In the past [...] place to sleep or slept in a long-term (including now)? No 05/14/2024 Hunger Vital Sign [...] - - Weight 83 kg (183 lb) 05/08/2025 1:55 PM EDT Height 170.2 cm (5' 7 ) 05/08/2025 1:55 PM EDT Body Mass Index 28.66 05/08/2025 1:55 PM EDT Plan of Treatment Upcoming Encounters Date Type Department Care Team (Late st Contact Info) Description 08/07/2025 3:00 PM EST Follow-Up [facility] [address] [place] [address] [place] [phone] Christian Shipman MD [address] [place] [address] [place] [address] Health Maintenance Due Date Last Done Comments CT Colonography 1959 Colonoscopy 1959 Colorectal Cancer Screening 1959 FIT-DNA 1959 FIT 1959 FOBT 1959 Medicare Annual Wellness (AWV) 1959 Medicare Initial Physical (IPPE) 1959 Sigmoidoscopy 1959 Diabetes: Retinopathy Screening 12/20/1969 Pap Smear 12/20/1980 Cervical Cancer Screening 12/20/1989 HPV/Cotest 12/20/1989 Mammogram 1999 Zoster Vaccines (1 of 2) 12/20/2009 Diabetes: Hemoglobin A1C 09/30/2020 06/30/2020 Diabetes: Urine Protein Screening 03/27/2025 03/27/2024 COVID-19 Vaccine ( season) 2025 09/01/2021, 11/27/2020, 11/06/2020, Additional history exists Influenza Vaccine (#1) 2025 , 08/05/2022, 05/21/2021, Additional history exists Pneumococcal Vaccine: 50+ Years (3 of 3 - PCV20 or PCV21) 06/11/2025 06/11/2020, 06/05/2020, 05/20/2020 Depression Screening 05/08/2026 05/08/2025 Fall Risk Screening 05/08/2026 05/08/2025 Adult Tetanus 09/17/2029 09/17/2019 HIB Vaccines Aged [...] this topic Medical Devices Implanted Type Area Quality Control Lead Device Identifier Shelf Expiration Date Model / Serial / Lot T2 Alpha Tibia Implanted:Qty: 1 on 04/22/2024 by Christian Shipman MD at [facility] Nail Right: Tibia [employer] [id number] 09/04/2033 [id number] S / / [id number] T2 Alpha Nail Implanted:Qty: 1 on 04/22/2024 by Christian Shipman MD at [facility] Nail Left: Tibia [employer] [id number] 12/03/2032 8893-0578 S / / [id number] Imn Screws Advanced Locking Screw Implanted:Qty: 1 on 04/22/2024 by Christian Shipman MD at [facility] Screw Right: Tibia [employer] [id number] 07/05/2032 5968-0647 S / / [id number] Imn Screws Advanced Locking Screw Implanted:Qty: 1 on 04/22/2024 by Christian Shipman MD at [facility] Screw Left: Tibia [employer] [id number] 12/03/2032 8228-9762 S / / [id number] Imn Screws Advanced Locking Screw Implanted:Qty: 1 on 04/22/2024 by Christian Shipman MD at [facility] Screw Right: Tibia [employer] [id number] 02/02/2034 9476-1174 S / / [id number] Imn Screws Advanced Locking Screw Implanted:Qty: 1 on 04/22/2024 by Christian Shipman MD at [facility] Screw Right: Tibia [employer] [id number] 03/04/2033 9470-8931 S / / [id number] Imn Screws Advanced Locking Screw Implanted:Qty: 1 on 04/22/2024 by Christian Shipman MD at [facility] Screw Left: Tibia [employer] [id number] 11/02/2032 0853-3716 S / / [id number] Imn Screws Advanced Locking Screw Implanted:Qty: 1 on 04/22/2024 by Christian Shipman MD at [facility] Screw Right: Tibia [employer] [id number] 11/02/2032 6073-2467 S / / [id number] Imn Screws Advanced Locking Screw Implanted:Qty: 1 on 04/22/2024 by Christian Shipman MD at [facility] Screw Left: Tibia [employer] [id number] 10/05/2032 1116-7626 S / / [id number] Imn Screws Advanced Locking Screw Implanted:Qty: 1 on 04/22/2024 by Christian Shipman MD at [facility] Screw Right: Tibia [employer] [id number] 01/02/2033 4387-2091 S / / [id number] Imn Screws Advanced Locking Screw Implanted:Qty: 1 on 04/22/2024 by Christian Shipman MD at [facility] Screw Right: Tibia [employer] [id number] 07/05/2032 4007-3422 S / / [id number] Alpha Tibial System End Cap Tibia Implanted:Qty: 1 on 04/22/2024 by Christian Shipman MD at [facility] Right: Tibia [employer] [id number] 08/04/2032 4610-2700 S / / [id number] T2 Alpha Tibia End Cap Tibia Implanted:Qty: 1 on 04/22/2024 by Christian Shipman MD at [facility] Left: Tibia [employer] [id number] 02/02/2033 9894-1097 S / / [id number] Procedures Procedure Name Priority Date/Time Associated Diagnosis Comments XR TIBIA FIBULA 2 VIEWS LEFT Routine 05/08/2025 1:52 PM EDT Tibia/fibula fracture, left, closed, initial encounter XR TIBIA FIBULA 2 VIEWS RIGHT Routine 05/08/2025 1:52 PM EDT Tibia/fibula fracture, right, open type I or II, initial encounter HEMOGLOBIN A1C Routine 06/30/2020 11:36 AM EDT from Last 3 Months or Most Recently Relevant to Health Maintenance Results * XR tibia fibula 2 views right (05/08/2025 1:52 PM EDT) Anatomical Region Laterality Modality Lower Extremities, Lower Leg Right Com puted Radiography 05/09/2025 2:38 PM EDT Impressions 05/09/2025 2:39 PM EDT FINDINGS/IMPRESSION: * Continued healing changes of the distal tibial fracture. Chronic deformity of the distal fibula. * No evidence of complication related to the tibial hardware. * No evidence of fracture or malalignment. Diffuse bone demineralization. * Vascular calcification. Electronically signed: MANUEL PINEDA MD. Narrative 05/09/2025 2:39 PM EDT EXAM: XR TIBIA FIBULA 2 VIEWS RIGHT CLINICAL INDICATIONS: Ortho follow-up, prior fracture, surgery Procedure Note Manuel Pineda MD - 05/09/2025 EXAM: XR TIBIA FIBULA 2 VIEWS RIGHT CLINICAL INDICATIONS: Ortho follow-up, prior fracture, surgery IMPRESSION: FINDINGS/IMPRESSION: *Continued healing changes of the distal tibial fracture. Chronicdeformity of the distal fibula. *No evidence of complication related to the tibial hardware. *No evidence of fracture or malalignment. Diffuse bonedemineralization. *Vascular calcification. Electronically signed: MANUEL PINEDA MD. us Christian Shipman MD IMG XR PROCEDURES Final Result * XR tibia fibula 2 views left (05/08/2025 1:52 PM EDT) Anatomical Region Laterality Modality Lower Extremities, Lower Leg Left Com puted Radiography 05/09/2025 2:41 PM EDT Impressions 05/09/2025 2:42 PM EDT FINDINGS/IMPRESSION: * Chronic deformity, healing changes of the distal tibia, fibula, similar to prior. * No evidence of complication related to the tibial hardware. * Bone demineralization. Electronically signed: MANUEL PINEDA MD. Narrative 05/09/2025 2:42 PM EDT EXAM: XR TIBIA FIBULA 2 VIEWS LEFT CLINICAL INDICATIONS: Prior surgery, orbital follow-up Procedure Note Manuel Pineda MD - 05/09/2025 EXAM: XR TIBIA FIBULA 2 VIEWS LEFT CLINICAL INDICATIONS: Prior surgery, orbital follow-up IMPRESSION: FINDINGS/IMPRESSION: *Chronic deformity, healing changes of the distal tibia, fibula, similarto prior. *No evidence of complication related to the tibial hardware. *Bone demineralization. Electronically signed: MANUEL PINEDA MD. Christian Shipman MD IMG XR PROCEDURES Final Result * (ABNORMAL) Hemoglobin A1c (06/30/2020 [...] Recently Relevant to Health Maintenance Insurance MEDICAID [place] [employer] MEDICARE ADVANTAGE Advance Directives * Full Code (Latest Code Status on File) Date Activated Date Inactivated Comments 04/22/2024 3:26 AM 05/01/2024 5:35 PM Care Teams Healthcare Administration Internship Relationship Specialty Start Date End Date Rudolph Peter MD [address] [place] [address] PCP - General Family Medicine 11/23/24
--- OUTSIDE RECORDS SUMMARY | 2025-06-19 09:12 | XMS_ITS | Encounter Summary ---
Author Organization [facility] Address [facility] [place]-[id number] [address] [place] [address] Care Team Providers Care Dipping Machine Operator Name Role Phone Rudolph Peter MD Primary Care Provider [phone] Reason for Visit * Reason Onset Date Comments Med Refill 11/29/2022 Encounter Details Date Type Department Care Team (Late st Contact Info) Description 11/29/2022 Refill [facility] Internal Medicine - Family Medicine [address] [place] [address] Zen Viera, DO [address] [facility], [place] [address] Compression fracture of L1 vertebra with routine [...] often do you attend chur ch or rastafari services? More than 4 times per year 11/19/2022 Do you belong to any clubs o r organizations such as yazidism groups, unions, fraternal or athletic groups, or [...] Answer Date Recorded Total Score 9 11/19/2022 [facility] of Occupat ional Health - [...] Do you need help finding a [facility] career center and/or a training program? [...] documented as of this encounter Care Teams Dipping Machine Operator Relationship Specialty Start Date End Date Rudolph Peter MD PCP - General Family Medicine 09/21/24 documented as of this encounter
--- OUTSIDE RECORDS SUMMARY | 2025-06-19 09:12 | XMS_ITS | Encounter Summary ---
Author Organization [facility] Sys tem Address [facility][id number] [address] [place] [address] Care Team Providers Care Alignment Mechanic Name Role Phone Rudolph Peter MD Primary Care Provider [phone] Encounter Details Date Type Department Care Team (Late st Contact Info) Description 08/08/2023 Orders Only [facility] Internal Medicine - Family Medicine [address] [place] [address] Zen Viera, DO [address], [place] [address] Social History Tobacco Use Types Packs/Day Years [...] often do you attend chur ch or caodaism services? More than 4 times per year 11/19/2022 Do you belong to any clubs o r organizations such as voodoo groups, unions, fraternal or athletic groups, or [...] Answer Date Recorded Total Score 0 07/12/2023 [facility] [place] of Occupat ional Health - Occupational Stress [...] documented as of this encounter Care Teams Alignment Mechanic Relationship Specialty Start Date End Date Rudolph Peter MD PCP - General Family Medicine 09/21/24 documented as of this encounter
--- OUTSIDE RECORDS SUMMARY | 2025-06-19 09:12 | XMS_ITS | Encounter Summary ---
Author Organization [facility] Sys [facility] Address [facility] [place]-[id number] [address] [place] [address] Care Team Providers Care Plastic Sheeting Cutter Name Role Phone Rudolph Peter MD Primary Care Provider [phone] Reason for Visit * Reason Comments Med Refill Encounter Details Date Type Department Care Team (Late st Contact Info) Description 07/22/2022 Refill [facility] Internal Medicine - Family Medicine [address] [place] [address] Zen Viera, DO [address] [facility], [place] [address] Compression fracture of L1 vertebra with routine [...] encounter documented in this encounter Care Teams Plastic Sheeting Cutter Relationship Specialty Start Date End Date Rudolph Peter MD PCP - General Family Medicine 09/21/24 documented as of this encounter
--- OUTSIDE RECORDS SUMMARY | 2025-06-19 09:12 | XMS_ITS | Encounter Summary ---
Author Organization [facility] Address [facility] [place][id number] [address] [place] [address] Care Team Providers Care Immigration Patrol Inspector Name Role Phone Rudolph Peter MD Primary Care Provider [phone] Encounter Details Date Type Department Care Team (Late st Contact Info) Description 11/29/2023 Telephone [facility] - Family Medicine [address] [place] [address] Demetra Yin, [employer] ENGINEER-[employer] [address] [place] [address] Social History Tobacco Use Types Packs/Day Years [...] often do you attend chur ch or gnosticism services? More than 4 times per year 11/19/2022 Do you belong to any clubs o r organizations such as congregation groups, unions, fraternal or athletic groups, or [...] Answer Date Recorded Total Score 0 07/12/2023 [facility] [place] of Occupat ional Health - Occupational Stress [...] documented as of this encounter Care Teams Immigration Patrol Inspector Relationship Specialty Start Date End Date Rudolph Peter MD PCP - General Family Medicine 09/21/24 documented as of this encounter
--- OUTSIDE RECORDS SUMMARY | 2025-06-19 09:12 | XMS_ITS | Encounter Summary ---
Author Organization [facility] Sys tem Address [facility][id number] [address] [place] [address] Care Team Providers Care Trailer Chief Name Role Phone Rudolph Peter MD Primary Care Provider [phone] Encounter Details Date Type Department Care Team (Late st Contact Info) Description 05/17/2022 Orders Only [facility] Internal Medicine - Family Medicine [address] [place] [address] External, Scanning Provider Social History Tobacco Use [...] on filedocumented in this encounter Care Teams Trailer Chief Relationship Specialty Start Date End Date Rudolph Peter MD PCP - General Family Medicine 09/21/24 documented as of this encounter
--- OUTSIDE RECORDS SUMMARY | 2025-06-19 09:12 | XMS_ITS | Encounter Summary ---
Author Organization [facility] Sys [facility] Address [facility] [place][id number] [address] [place] [address] Care Team Providers Care Warehouse Sorter Name Role Phone Rudolph Peter MD Primary Care Provider Reason for Visit * Reason Comments Med Refill Encounter Details Date Type Department Care Team (Late st Contact Info) Description 07/27/2022 Refill [facility] Internal Medicine - Family Medicine [address] [place] [address] Zen Viera, DO [address] [facility], [place] [address] Social History Tobacco Use Types Packs/Day Years [...] on filedocumented in this encounter Care Teams Warehouse Sorter Relationship Specialty Start Date End Date Rudolph Peter MD PCP - General Family Medicine 09/21/24 documented as of this encounter
--- OUTSIDE RECORDS SUMMARY | 2025-06-19 09:12 | XMS_ITS | Clinical Summary ---
Author Organization [facility] s tem Address [id number] [address] [place] [address] Care Team Providers Care Installer Interior Assemblies Name Role Phone Rudolph Peter MD Primary Care Provider [phone] Allergies Active Allergy Reactions Criticality Noted Date [...] BEDTIME 60 capsule 2 024 Active lancets (Row Sham BowTOUCH DELICA PLUS LANCET) 33 gauge misc TEST DIRECTED 5 TIMES A DAY Active ONETOUCH VERIO TEST STRIPS strip TEST DIRECTED 5 TIMES A DAY Active blood-glucose meter (Row Sham BowTOUCH VERIO REFLECT METER) misc use as directed Active HYDROcodone-acetami nophen (NORCO) 7.5-325 mg per tabletIndications:R heumatoid arthritis involving multiple sites, unspecified whether rheumatoid factor present ([facility]) Take 1 tablet by mouth in the morning. Max Daily Amount: 1 tablet. 21 tablet 024 Active DULoxetine (CYMBALTA) 30 mg capsule take 1 capsule by mouth every morning 30 capsule 024 Active gabapentin (NEURONTIN) 100 mg capsuleIndications: Diabetic polyneuropathy associated with type 1 diabetes mellitus ([facility]) Take 1 capsule (100 mg total) by mouth 3 (three) times a day. 90 capsule 2 024 Active finerenone (KERENDIA) 10 mg tablet Take 10 mg by mouth in the morning. 30 tablet 5 024 Active hydroxychloroquine (PLAQUENIL) 200 mg tabletIndications:R heumatoid arthritis involving multiple sites, unspecified whether rheumatoid factor present ([facility]) Take 1 tablet (200 mg total) by mouth in the morning and 1 tablet (200 mg total) before bedtime. 60 tablet 2 025 Active leflunomide (ARAVA) 20 mg tabletIndications:R heumatoid arthritis involving multiple sites, unspecified whether rheumatoid factor present ([facility]) Take 1 tablet (20 mg total) by [...] Encounters Date Type Department Care Team Description 06/03/2025 Refill [facility] [address] [facility] [address] [place] [address] Belgica Saba MD Rheumatoid arthritis involving multiple sites, unspecified whether rheumatoid factor present ([facility]) from Last 3 Months Immunizations Immunization Administration [...] often do you attend chur ch or zoroastrian services? More than 4 times per year [...] Answer Date Recorded Total Score 16 04/13/2024 [facility] of Occupat pending sale to [facility] - Occupational Stress Questionnaire Answer Date Recorded [...] Recorded Do you need help finding a [facility] career center and/or a training program? No [...] Health Maintenance Due Date Last Done Comments Statin Use: Cardiovascular 1959 Statin Use: Diabetic 1959 Adult BMI Follow Up Plan 12/20/1977 Zoster [...] Diagnosis Comments DIABETES EYE EXAM Routine 07/12/2022 from Last 3 Months or Most Recently Relevant to Health Maintenance Results * DIABETES EYE EXAM (07/12/2022) us Not In System Ref Prov HEALTH MAINTENANCE Final Result MANUALLY TRANSCRIBED RESULTS from Last 3 Months or Most Recently Relevant to Health Maintenance Insurance [employer] MEDICARE MEDICAID [place] Care Teams Installer Interior Assemblies Relationship Specialty Start Date End Date Rudolph Peter MD PCP - General Family Medicine 09/21/24
--- OUTSIDE RECORDS SUMMARY | 2025-06-19 09:12 | XMS_ITS | Encounter Summary ---
Author Organization [employer] Address [facility] [id number] [address] [place] [address] Care Team Providers Care Tensile Tester Name Role Phone Rudolph Peter MD Primary Care Provider [phone] Reason for Visit * Reason Comments Med Refill Encounter Details Date Type Department Care Team (Late st Contact Info) Description 11/11/2022 Refill [facility]ojana C[facility] - Medical Oncology [address] [place] [address] Zen Viera, DO [address] [facility] [address] [place] [address] Social History Tobacco Use Types Packs/Day Years [...] documented as of this encounter Care Teams Tensile Tester Relationship Specialty Start Date End Date Rudolph Peter MD PCP - General Family Medicine 09/21/24 documented as of this encounter
--- OUTSIDE RECORDS SUMMARY | 2025-06-19 09:12 | XMS_ITS | Encounter Summary ---
Author Organization [employer] Sys tem Address [facility][id number] [address] [place] [address] Care Team Providers Care Dietary Cook Name Role Phone Rudolph Peter MD Primary Care Provider [phone] Encounter Details Date Type Department Care Team (Late st Contact Info) Description 07/18/2024 [facility]phone [facility] [address] [place] [address] Faiza Lange, EHR TRAINER Social History Tobacco Use Types Packs/Day Years [...] often do you attend chur ch or denominational services? More than 4 times per year 11/19/2022 Do you belong to any clubs o r organizations such as anabaptist groups, unions, fraternal or athletic groups, or [...] Answer Date Recorded Total Score 16 04/13/2024 [facility] of Occupat ional [...] Recorded Do you need help finding a [facility] and/or a training [...] 07/18/2024 10:30 AM EST Stephanie from [facility] called to see if you would follow this pt for [facility]? * Telephone Encounter - Zen Viera DO - 07/18/2024 10:30 AM EST sure documented in this encounter Plan of Treatment Not on file documented as of this encounter Visit Diagnoses Not on filedocumented in this encounter Additional Health Concerns Assessment Noted Time PHQ-9 Depression Total Score: 16 024 11:42 AM EDT documented as of this encounter Care Teams Dietary Cook Relationship Specialty Start Date End Date Rudolph Peter MD PCP - General Family Medicine 09/21/24 documented as of this encounter
--- OUTSIDE RECORDS SUMMARY | 2025-06-19 09:12 | XMS_ITS | Encounter Summary ---
Author Organization [facility] Address [address] [facility] [place] [address] Care Team Providers Care Secretary To The Vice President Name Role Phone Zeyad Tate MD Primary Care Provider [phone] Zen Viera MD Primary Care Provider [phone] Rudolph Peter MD Primary Care Provider [phone] Encounter Details Date Type Department Care Team (Late st Contact Info) Description 08/16/2023 [facility] [address] [place] [address] Panchito Pardo DPM [address] [place], [place] [id number] Social History Tobacco Use Types Packs/Day Years [...] on filedocumented in this encounter Care Teams Secretary To The Vice President Relationship Specialty Start Date End Date Zeyad Tate MD [address] [place] [address] PCP - General Endocrinology 06/06/23 08/13/24 Zen Viera MD [address] [place] [address] PCP - General Family Medicine 08/14/24 09/18/24 Rudolph Peter MD [address] [place] [address] PCP - General Family Medicine 09/19/24 documented as of this encounter
--- OUTSIDE RECORDS SUMMARY | 2025-06-19 09:12 | XMS_ITS | Encounter Summary ---
Author Organization [employer] [facility] Address [id number] [address] [place] [address] Care Team Providers Care Wire Splicer Name Role Phone Rudolph Peter MD Primary Care Provider [phone] Reason for Visit * Reason Onset Date Comments Med Refill 11/28/2023 Encounter Details Date Type Department Care Team (Late st Contact Info) Description 11/28/2023 Refill Yojana Cai [facility] Cancer Center - Medical Oncology [address] [place] [address] Demetra Yin, INSTALLER METAL FLOORING-PRINTING SPECIALIST [address] [place], [place] [id number] Compression fracture of L1 vertebra with routine [...] How often do you attend chur or synagogue services? More than 4 times per year [...] Answer Date Recorded Total Score 0 07/12/2023 [facility] of Occupat ional Health - Occupational Stress [...] a purpose and direction in my life. Rcoíoith er Agree nor Disagree 11/19/2022 Comments No [...] documented as of this encounter Care Teams Wire Splicer Relationship Specialty Start Date End Date Rudolph Peter MD PCP - General Family Medicine 09/21/24 documented as of this encounter
--- OUTSIDE RECORDS SUMMARY | 2025-06-19 09:12 | XMS_ITS | Encounter Summary ---
Author Organization [facility] Sys tem Address [id number] [address] [place] [address] Care Team Providers Care Trouble Shooting Mechanic Name Role Phone Rudolph Peter MD Primary Care Provider [phone] Encounter Details Date Type Department Care Team (Late st Contact Info) Description 11/27/2024 [facility]phone [facility] [address] [place] [address] Kailee Mays CMA Social History Tobacco Use [...] Answer Date Recorded Total Score 16 04/13/2024 [facility] of Occupat ional Health - Occupational Stress [...] Recorded Do you need help finding a [employer] [facility] career center and/or a training program? No [...] documented as of this encounter Care Teams Trouble Shooting Mechanic Relationship Specialty Start Date End Date Rudolph Peter MD PCP - General Family Medicine 09/21/24 documented as of this encounter
--- OUTSIDE RECORDS SUMMARY | 2025-06-19 09:12 | XMS_ITS | Encounter Summary ---
Author Organization [facility] Sys tem Address [facility][id number] [address] [place] [address] Care Team Providers Care Principal Security Architect Name Role Phone Rudolph Peter MD Primary Care Provider [phone] Encounter Details Date Type Department Care Team (Late st Contact Info) Description 08/18/2023 Orders Only [facility] Internal Medicine - Family Medicine [address] [address] Zen Viera, DO [address], [place] [address] Social History Tobacco Use Types Packs/Day Years [...] any clubs o r organizations such as synagogue groups, unions, fraternal or athletic groups, or [...] Answer Date Recorded Total Score 0 07/12/2023 [facility] of Occupat ional Health - Occupational Stress [...] documented as of this encounter Care Teams Principal Security Architect Relationship Specialty Start Date End Date Rudolph ePter MD PCP - General Family Medicine 09/21/24 documented as of this encounter
--- OUTSIDE RECORDS SUMMARY | 2025-06-19 09:12 | XMS_ITS | Encounter Summary ---
Author Organization [facility] Address [address] [place] [address] Care Team Providers Care Cob Sawyer Name Role Phone Zeyad Tate MD Primary Care Provider [phone] Zen Viera MD Primary Care Provider [phone] Rudolph Peter MD Primary Care Provider [phone] Encounter Details Date Type Department Care Team (Late st Contact Info) Description 07/17/2024 Abstract [facility] [address] [place] [address] Zeyad Tate MD [address] [place] [address] Social History Tobacco Use Types [...] on filedocumented in this encounter Care Teams Cob Sawyer Relationship Specialty Start Date End Date Zeyad Tate MD [address] [place] [address] PCP - General Endocrinology 06/06/23 08/13/24 Zen Viera MD [address] [place] [address] PCP - General Family Medicine 08/14/24 09/18/24 Rudolph Peter MD [address] [place] [address] PCP - General Family Medicine 09/19/24 documented as of this encounter
--- OUTSIDE RECORDS SUMMARY | 2025-06-19 09:12 | XMS_ITS | Encounter Summary ---
Author Organization [facility] Address [id number] [address] [place] [address] Care Team Providers Care Lighting Director Name Role Phone Rudolph Peter MD Primary Care Provider [phone] Encounter Details Date Type Department Care Team (Late st Contact Info) Description 05/31/2023 [facility]phone [facility] Family Medicine [address] [place] [address] Zen Viera, DO [address], [place] [address] Social History Tobacco Use Types Packs/Day Years [...] Answer Date Recorded Total Score 8 05/02/2023 [facility] [place] of Occupat ional Health - Occupational Stress [...] purpose and direction in my life. Rocíoith mihaela Agree nor Disagree 11/19/2022 Comments No Sex [...] documented as of this encounter Care Teams Lighting Director Relationship Specialty Start Date End Date Rudolph Peter MD PCP - General Family Medicine 09/21/24 documented as of this encounter
--- OUTSIDE RECORDS SUMMARY | 2025-06-19 09:12 | XMS_ITS | Encounter Summary ---
Author Organization [facility] Address [facility][id number] [address] [place] [address] Care Team Providers Care Sole Filler Name Role Phone Rudolph Peter MD Primary Care Provider Reason for Visit * Reason Onset Date Comments Med Refill 04/25/2023 Encounter Details Date Type Department Care Team (Late st Contact Info) Description 04/25/2023 Refill [facility] Internal Medicine - Family Medicine [address] [place] [address] Zen Viera, DO [address] [facility], [place] [address] Compression fracture of L1 vertebra with routine [...] often do you attend chur ch or catholic services? More than 4 times per year [...] Answer Date Recorded Total Score 16 04/01/2023 [facility] of Occupat ional Health - [...] documented as of this encounter Care Teams Sole Filler Relationship Specialty Start Date End Date Rudolph Peter MD PCP - General Family Medicine 09/21/24 documented as of this encounter
--- OUTSIDE RECORDS SUMMARY | 2025-06-19 09:12 | XMS_ITS | Encounter Summary ---
Author Organization [employer] [employer] Sys tem Address [facility][id number] [address] [place] [address] Care Team Providers Care Nurseryman Assistant Name Role Phone Rudolph Peter MD Primary Care Provider [phone] Reason for Visit * Reason Comments Med Refill Encounter Details Date Type Department Care Team (Late st Contact Info) Description 05/16/2023 Refill [facility] Internal Medicine - Family Medicine [address] [place] [address] Zen Viera, DO [address] [facility], [place] [address] Compression fracture of L1 vertebra with routine [...] How often do you attend chur or orthodoxy services? More than 4 times [...] Answer Date Recorded Total Score 8 05/02/2023 [facility] of Occupat ional Health - [...] documented as of this encounter Care Teams Nurseryman Assistant Relationship Specialty Start Date End Date Rudolph Peter MD PCP - General Family Medicine 09/21/24 documented as of this encounter
--- OUTSIDE RECORDS SUMMARY | 2025-06-19 09:12 | XMS_ITS | Encounter Summary ---
Author Organization [facility] Sys tem Address [facility][id number] [address] [place] [address] Care Team Providers Care Fire Lieutenant Marine Name Role Phone Rudolph Peter MD Primary Care Provider [phone] Encounter Details Date Type Department Care Team (Late st Contact Info) Description 05/27/2023 Orders Only [facility] Internal Medicine - Family Medicine [address] [place] [address] Zen Viera, DO [address], [place] [address] Social History Tobacco Use Types Packs/Day Years [...] often do you attend chur ch or restorationism services? More than 4 times per year 11/19/2022 Do you belong to any clubs o r organizations such as adventism groups, unions, fraternal or athletic groups, or [...] Answer Date Recorded Total Score 8 05/02/2023 [facility] [place] of Occupat ional Health - Occupational Stress [...] documented as of this encounter Care Teams Fire Lieutenant Marine Relationship Specialty Start Date End Date Rudolph Peter MD PCP - General Family Medicine 09/21/24 documented as of this encounter
--- OUTSIDE RECORDS SUMMARY | 2025-06-19 09:12 | XMS_ITS | Encounter Summary ---
Author Organization [facility] Address [id number] [address] [place] [address] Care Team Providers Care Chief Procurement Officer Name Role Phone Rudolph Peter MD Primary Care Provider [phone] Encounter Details Date Type Department Care Team (Late st Contact Info) Description 01/28/2022 Orders Only [facility] [address] [place] [address] Ref Prov, [place] [address] Social History Tobacco Use Types Packs/Day Years [...] on filedocumented in this encounter Care Teams Chief Procurement Officer Relationship Specialty Start Date End Date Rudolph Peter MD PCP - General Family Medicine 09/21/24 documented as of this encounter
--- OUTSIDE RECORDS SUMMARY | 2025-06-19 09:12 | XMS_ITS | Encounter Summary ---
Author Organization [facility] Sys [facility] Address [facility]-[id number] [address] [place] [address] Care Team Providers Care Pulmonary Function Technologist Name Role Phone Rudolph Peter MD Primary Care Provider [phone] Reason for Visit * Reason Comments Med Refill Encounter Details Date Type Department Care Team (Late st Contact Info) Description 05/29/2022 Refill [facility] Internal Medicine - Family Medicine [address] [place] [address] Zen Viera, DO [address] [facility], [place] [address] Compression fracture of L1 vertebra with routine [...] 1:36 AM EST Sexual Orientation Straight 09/15/2022 1 :36 AM EST documented as of this encounter Plan of Treatment Not on file documented as of this encounter Visit Diagnoses Diagnosis Compression fracture of L1 vertebra with routine healing, subsequent encounter documented in this encounter Care Teams Pulmonary Function Technologist Relationship Specialty Start Date End Date Rudolph Peter MD PCP - General Family Medicine 09/21/24 documented as of this encounter
--- OUTSIDE RECORDS SUMMARY | 2025-06-19 09:12 | XMS_ITS | Encounter Summary ---
Author Organization [facility] Sys tem Address [facility] [id number] [address] [place] [address] Care Team Providers Care Engineer Systems Name Role Phone Rudolph Peter MD Primary Care Provider [phone] Encounter Details Date Type Department Care Team (Late st Contact Info) Description 11/01/2023 Orders Only [facility] Internal Medicine - Family Medicine [address] [place] [address] Zen Viera, DO [address], [place] [address] Social History Tobacco Use Types Packs/Day Years [...] often do you attend chur ch or yarsani services? More than 4 times per year [...] Answer Date Recorded Total Score 0 07/12/2023 [facility] of Occupat ional Health - Occupational Stress [...] documented as of this encounter Care Teams Engineer Systems Relationship Specialty Start Date End Date Rudolph Peter MD PCP - General Family Medicine 09/21/24 documented as of this encounter
--- OUTSIDE RECORDS SUMMARY | 2025-06-19 09:12 | XMS_ITS | Encounter Summary ---
Author Organization [facility] Address [address] [place] [address] Care Team Providers Care Voice Intercept Technician Name Role Phone Rudolph Peter MD Primary Care Provider [phone] Encounter Details Date Type Department Care Team (Late st Contact Info) Description 11/20/[address] [facility] [address] [place] [address] Rudolph Peter MD [address] [place] [address] Social History Tobacco Use Types Packs/Day Years [...] often do you attend chur ch or sabianism services? More than 4 times per year 09/12/2024 Do you belong to any clubs o r organizations such as gnosticist groups, unions, fraternal or athletic groups, or [...] care, and heating? Not very hard 09/12/2024 [facility] [place] of Occupat ional Health - Occupational Stress [...] any time in the past 12 m [facility], were you homeless or living in a retirement (including now)? No 09/12/2024 Comments Unknown Sex [...] Radiographic Caro ging us Rudolph Peter MD [facility] XR PROCEDURES Final Result documented in this encounter Visit Diagnoses Not on filedocumented in this encounter Care Teams Voice Intercept Technician Relationship Specialty Start Date End Date Rudolph Peter MD PCP - General Family Medicine 09/19/24 documented as of this encounter
--- OUTSIDE RECORDS SUMMARY | 2025-06-19 09:12 | XMS_ITS | Encounter Summary ---
Author Organization [facility] Address [facility][id number] [address] [place] [address] Care Team Providers Care High School Academic Coach Name Role Phone Rudolph Peter MD Primary Care Provider [phone] Encounter Details Date Type Department Care Team (Late st Contact Info) Description 11/15/2023 Telephone [facility] Internal Medicine - Family Medicine [address] [place] [address] Demetra Yin, WATCH REPAIR TECHNICIAN-SEWING MACHINE OPERATOR SEMIAUTOMATIC [address] [address] Social History Tobacco Use Types Packs/Day Years [...] often do you attend chur ch or mu-ism services? More than 4 times per year [...] Answer Date Recorded Total Score 0 07/12/2023 [facility] [place] of Occupat ional Health - Occupational Stress [...] 11/15/2023 10:32 AM EDT ----- Message from BECCA Cordero sent at 11/15/2023 8:00 AM EDT ----- [...] documented as of this encounter Care Teams High School Academic Coach Relationship Specialty Start Date End Date Rudolph Peter MD PCP - General Family Medicine 09/21/24 documented as of this encounter
--- OUTSIDE RECORDS SUMMARY | 2025-06-19 09:12 | XMS_ITS | Encounter Summary ---
Author Organization [employer] Sys tem Address [id number] [address] [place] [address] Care Team Providers Care Transition Rn Name Role Phone Rudolph Peter MD Primary Care Provider [phone] Reason for Visit * Reason Onset Date Comments Med Refill 08/03/2022 Encounter Details Date Type Department Care Team (Late st Contact Info) Description 08/03/2022 Refill [facility] Internal Medicine - Family Medicine [address] [place] [address] Zen Viera, DO [address] [facility], [place] [address] Compression fracture of L1 vertebra with routine [...] encounter documented in this encounter Care Teams Transition Rn Relationship Specialty Start Date End Date Rudolph Peter MD PCP - General Family Medicine 09/21/24 documented as of this encounter
--- OUTSIDE RECORDS SUMMARY | 2025-06-19 09:12 | XMS_ITS | Encounter Summary ---
Author Organization [facility] Sys tem Address [facility] [id number] [address] [place] [address] Care Team Providers Care Exchange Engineer Name Role Phone Rudolph Peter MD Primary Care Provider [phone] Encounter Details Date Type Department Care Team (Late st Contact Info) Description 07/06/2023 Orders Only [facility] - Family Medicine [address] [place] [address] External, Scanning Provider Social History Tobacco Use [...] often do you attend chur ch or religion services? More than 4 times per year 11/19/2022 Do you belong to any clubs o r organizations such as episcopalian groups, unions, fraternal or athletic groups, or [...] Answer Date Recorded Total Score 8 05/02/2023 [facility] of Occupat ional [...] documented as of this encounter Care Teams Exchange Engineer Relationship Specialty Start Date End Date Rudolph Peter MD PCP - General Family Medicine 09/21/24 documented as of this encounter
--- OUTSIDE RECORDS SUMMARY | 2025-06-19 09:12 | XMS_ITS | Encounter Summary ---
Author Organization [facility] Sys tem Address [facility] [id number] [address] [place] [address] Care Team Providers Care Stage Director Name Role Phone Rudolph Peter MD Primary Care Provider [phone] Encounter Details Date Type Department Care Team (Late st Contact Info) Description 04/24/2024 Orders Only [facility] Internal [facility] - Family Medicine [address] [place] [address] Ref Prov, [place] [address] Social History Tobacco Use Types Packs/Day Years [...] Answer Date Recorded Total Score 16 04/13/2024 [facility] of Occupat ional Health - Occupational [...] Recorded Do you need help finding a [facility] career center and/or a training program? [...] documented as of this encounter Care Teams Stage Director Relationship Specialty Start Date End Date Rudolph Peter MD PCP - General Family Medicine 09/21/24 documented as of this encounter
--- OUTSIDE RECORDS SUMMARY | 2025-06-19 09:12 | XMS_ITS | Encounter Summary ---
Author Organization [facility] Address [facility] [id number] [address] [place] [address] Care Team Providers Care Beater Out Leveling Machine Name Role Phone Rudolph Peter MD Primary Care Provider [phone] Encounter Details Date Type Department Care Team (Late st Contact Info) Description 06/01/2023 Orders Only [facility] - Family Medicine [address] [place] [address] Miranda Nash CMA Type 1 diabetes mellitus with diabetic polyneuropathy ([facility]) Social History Tobacco Use Types Packs/Day Years [...] any clubs o r organizations such as episcopal groups, unions, fraternal or athletic groups, or [...] Answer Date Recorded Total Score 8 05/02/2023 [facility] of Occupat ional Health - Occupational Stress [...] Recorded Do you need help finding a [facility] career center and/or a training program? [...] documented as of this encounter Care Teams Beater Out Leveling Machine Relationship Specialty Start Date End Date Rudolph Peter MD PCP - General Family Medicine 09/21/24 documented as of this encounter
--- OUTSIDE RECORDS SUMMARY | 2025-06-19 09:12 | XMS_ITS | Encounter Summary ---
Author Organization [facility] Sys tem Address [facility] [id number] [address] [place] [address] Care Team Providers Care Protein Chemist Name Role Phone Rudolph Peter MD Primary Care Provider [phone] Encounter Details Date Type Department Care Team (Late st Contact Info) Description 03/27/2024 [facility] [address] [place] [address] Faiza Lange, STATISTICAL PROGRAMMER Social History Tobacco Use Types Packs/Day Years [...] often do you attend chur ch or mormonism services? More than 4 times per year [...] Answer Date Recorded Total Score 17 03/26/2024 [facility] of Occupat ional Health - Occupational [...] Recorded Do you need help finding a [facility] and/or a training [...] documented as of this encounter Care Teams Protein Chemist Relationship Specialty Start Date End Date Rudolph Peter MD PCP - General Family Medicine 09/21/24 documented as of this encounter
--- OUTSIDE RECORDS SUMMARY | 2025-06-19 09:13 | XMS_ITS | Encounter Summary ---
Author Organization [facility] Address [facility] [id number] [address] [place] [address] Care Team Providers Care Manufacturers Representative Name Role Phone Rudolph Peter MD Primary Care Provider [phone] Reason for Visit * Reason Onset Date Comments Med Refill 05/16/2023 Encounter Details Date Type Department Care Team (Late st Contact Info) Description 05/16/2023 Refill [facility] Center - Medical Oncology [address] [place] [id number] Zen Viera, DO [address] [facility], [address] [place] [address] Compression fracture of L1 vertebra with routine [...] often do you attend chur ch or samaritan services? More than 4 times per year [...] Answer Date Recorded Total Score 8 05/02/2023 [facility] of Occupat ional Health [...] Recorded Do you need help finding a [facility] career center and/or a training program? No [...] documented as of this encounter Care Teams Manufacturers Representative Relationship Specialty Start Date End Date Rudolph Peter MD PCP - General Family Medicine 09/21/24 documented as of this encounter
--- OUTSIDE RECORDS SUMMARY | 2025-06-19 09:15 | XMS_ITS | CCD ---
Author Organization [facility] Care Team Providers Care Sewer Head Name Role Phone SELF, REFERRED Referring Unavailable YISEL, ALEXANDER Admitting Unavailable SERENA MARTINEZSEIN Alena Surgeon Unavailable DIONNE HYATT Attending Unavailable NC Procedure Practitioner Unavailab le UNKNOWN, PHYSICIAN Primary [...] RADHA BRANNON Attending Unavailable SANDRA, DR ZEN Renioso Primary Care Unavailable HIGHLRADHA VASQUEZ Consulting Unavailable [...] FURLONG, DR ZEN Reinoso Primary Care Unavailable PUEBLO, DR ANN García Consulting Unavailable HIGHLANDER, RADHA [...] ALESSANDRO, DR HENRY Consulting Unavailable JEROMY, DR NAOIME Dalton Admitting Unavailable PINZON, DR NAOMIE Dalton [...] Care Unavailable DEMETRA PORTER Attending Unavailable FURLOZEN BURNS Referring Unavailable [...] Unavailable Furlong Zen SHAVER Primary Care Provider [phone] Rudolph Hurt MD Primary Care Provider [phone] Furlong DO, Zen Kemar Primary Care Provider [phone] Rudolph Hurt MD Primary Care Provider [phone] DEMETRA PORTER Referring Unavailable FURLONG, ZEN G [...] Care Unavailable Silvia Blank APRN Attending Provider Rudolph Hurt MD Primary Care Provider RUDOLPH HURT Attending Unavailable SRIRAM, AHMAD F [...] Adhesive Tape Drug allergy (disorder) 0 The [facility] Repository (7 sources) Amino Acids; Translations: [LISINOPRIL] Drug Allergy 0 The [facility] Repository (1 source) Bee/Wasp/Ant venom; Translations: [Bee/Wasp Stings] Propensity to adverse reactions (disorder) 0 The [facility] Repository (6 sources) Codeine; Translations: [CODEINE] Drug Allergy 0 The [facility] Repository (6 sources) Morphine; Translations: [MORPHINE] Drug Allergy 0 The [facility] Repository (2 sources) bee venom Drug allergy (disorder) The [facility] Repository (4 sources) cilostazol; Translations: [CILOSTAZOL] Drug Allergy 0 The [facility] Repository (2 sources) Desonide Drug Allergy The [facility] Repository (4 sources) HYDROmorphone; Translations: [HYDROMORPHONE] Drug Allergy 0 The [facility] Repository (1 source) icosapent ethyl Drug Allergy The [facility] Repository (20 sources) Adhesive agent; [...] (20 sources) Codeine Drug Allergy [address] [facility] (20 sources) Honey bee venom Propensity to adverse reactions 1 [facility] (20 sources) HYDROmorphone Drug Allergy 0 [facility] (20 sources) Lisinopril Allergy to substance 0 Other [facility] (20 sources) Morphine Drug Allergy 0 Other [facility] (20 sources) Wound Dressing Adhesive Drug Intolerance 1 [facility] (20 sources) cilostazol Drug Allergy 0 [facility] (20 sources) Lisinopril Drug Allergy 0 Rash [facility] Medications Current Medications Medication Drug Class(es) Dates Sig (Normalized) Sig (Original) acetaminophen 325 mg / HYDROcodone bitartrate 5 mg oral tablet (20 sources) Opioid Agonist Start: 03-14-2025 End: 03-29-2025 take 1 tablet by mouth four times daily as needed for pain HYDROcodone-aceta minophen ([place]) 5-325 MG tablet Indications: Rheumatoid arthritis involving multiple sites with positive rheumatoid factor (HCC) Take 1 tablet by mouth 4 (four) times a day as needed for severe pain for up to 15 days 60 tablet 03/14/2025 03/29/2025 Active Start: 12-27-2024 End: 03-05-2025 take 1 tablet by mouth four times daily as needed for pain HYDROcodone-acetaminophen ([place]) 5-325 MG tablet Indications: Rheumatoid arthritis involving multiple sites with positive rheumatoid factor (HCC) Take 1 tablet by mouth 4 (four) times a day as needed for severe pain for up to 7 days 28 tablet 02/26/2025 03/05/2025 Active Start: 12-03-2024 End: 12-10-2024 take 1 tablet by mouth four times daily as needed for pain HYDROcodone-acetaminophen ([place]) 5-325 MG tablet Indications: Rheumatoid arthritis involving multiple sites with positive rheumatoid factor (CMS/HCC) Take 1 tablet by mouth 4 (four) times a day as needed for severe pain for up to 7 days 28 tablet 12/03/2024 12/10/2024 Active Start: 11-12-2024 End: 11-19-2024 take 1 tablet by mouth four times daily as needed for pain HYDROcodone-acetaminophen ([place]) 5-325 MG tablet Indications: Rheumatoid arthritis involving multiple sites with positive rheumatoid factor (CMS/HCC) Take 1 tablet by mouth 4 (four) times a day as needed for severe pain for up to 7 days 28 tablet 11/12/2024 11/19/2024 Active Start: 10-19-2024 End: 10-26-2024 take 1 tablet by mouth four times daily as needed for pain HYDROcodone-acetaminophen ([place]) 5-325 MG tablet Indications: Rheumatoid arthritis involving multiple sites with positive rheumatoid factor (CMS/HCC) Take 1 tablet by mouth 4 (four) times a day as needed for severe pain for up to 7 days 28 tablet 10/19/2024 10/26/2024 Active Start: 09-19-2024 End: 09-26-2024 take 1 tablet by mouth four times daily as needed for pain HYDROcodone-acetaminophen ([place]) 5-325 MG tablet Indications: Rheumatoid arthritis involving [...] MG tablet 09/19/2024 Discontinued HYDROcodone-Acet aminophen Active [id number] 200 actuat albuterol 0.09 mg/actuat metered dose [...] MG tablet Indications: Coronary artery disease involving [place] coronary artery of [place] heart without angina pectoris Take 1 tablet [...] (5,000 unit) tablet 0 Active Continuous Glucose Rn Iv Therapy (FreeStyle Tru 14 Day [place]) device (6 sources) End: 09-19-2024 Continuous Glucose Rn Iv Therapy (FreeStyle Tru 14 Day [place]) device 09/19/2024 Discontinued Continuous Gluco se Rn Iv Therapy (FreeStyle Tru 14 Day [place]) device Active Continuous Glucose Sensor (FreeStyle Tru [...] multiple sites, unspecified whether rheumatoid factor present ([facility]) Take 1 tablet (200 mg total) by [...] multiple sites, unspecified whether rheumatoid factor present ([facility]) Take 1 tablet (20 mg [...] disease (20 sources) Atherosclerotic heart disease of [place] coronary artery without angina pectoris; Translations: [Coronary [...] Onset: 03-22-2022 Chronic Other aftercare (1 source) [facility] (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; Translations: [TIN POT OPERATOR 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 INSULIN] Onset: 10-19-2022 Episodic Other aftercare (2 sources) Other rat exterminator (current) drug therapy; Translations: [OTH TIN POT OPERATOR CURRENT DRUG THERAPY] Onset: 10-19-2022 Episodic Other aftercare (1 source) 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 aspirin; Translations: [TIN POT OPERATOR 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 ASPIRIN] Onset: 08-18-2022 Episodic Other aftercare (1 source) Drug therapy finding; Translations: [Other rat exterminator (current) drug therapy] 11-19-2024 Episodic Other aftercare (2 sources) Long-term current use of leflunomide; Translations: [Other rat exterminator (current) drug therapy] Onset: 11-19-2024 11-19-2024 Episodic [...] procedures, not elsewhere classified, initial encounter; Translations: [[facility] COMPLICATIONS PROC NEC INITIAL] Onset: 03-18-2022 Episodic [...] sources) Long-term current use of insulin; Translations: [[facility] (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] Onset: 07-18-2024 07-18-2024 Episodic Other aftercare (20 sources) Long-term current use of drug therapy; Translations: [Other alf (current) drug therapy] Onset: 09-19-2024 09-19-2024 Episodic [...] Interpretation Reference Range Facility Follow-Upon 05-08-2025 Follow-Up [id number] Monica Acosta 1960 F Date Provider Department Center 05/08/2025 OCTAVIANO LOZOYA [facility]THO Family History Problem Relation Age of Onset Anesthesia problems Mother Broken bones Mother Osteoporosis Mother Broken bones Father Stroke Father Coronary artery disease Father Family Status - Relation Status Age at Mother Father Level of Service:18036 [place] OFFICE/OUTPATIENT ESTABLISHED LOW MDM 20 MIN (GC) Reason for Visit and Comments: Follow-up [367181] Pain [136] Follow-up [353105] Pain [136] Normal [facility] Glucose (Bld) [Mass/Vol]Orde red By: Meenakshi Heck on 12-31-2024 Glucose Blood, POC 166 mg/dL [facility] - Hematology and Cell countson 12-31-2024 HbA1c (Bld) [Mass fraction] 7.5 % [facility] No Panel InformationOrdered By: Meenakshi Heck on 12-31-2024 [facility] Health[facility] ALL CBC WITH AUTO DIFFon BASOPHILS ABSOLUTE AUTO 0.1 [facility] Basophils/100 WBC (Bld) 0.8 % 0.2 - 2.0 % [facility] Eosinophils/100 WBC (Bld) 3.4 % 0.9 - 7.0 % [facility] Erythrocyte distribution width (RBC) [Ratio] 16.8 % High 11.0 - 15.0 % [facility] Hematocrit (Bld) [Volume fraction] 47.2 % 36.0 - 48.0 % [facility] Hemoglobin (Bld) [Mass/Vol] 15.2 g/dL 12.0 - 16.0 g/dL [facility] IMMATURE GRANULOCYTES ABS AUTO 0.04 High [facility] Immature granulocytes/100 WBC (Bld) 0.4 % 0.0 - 0.5 % [facility] Interpretation and review of laboratory results Abnormal [facility] LYMPHOCYTES ABSOLUTE AUTO 1.5 [facility] Lymphocytes/100 WBC (Bld) 14.5 % Low 20.5 - 60.0 % [facility] MCH (RBC) [Entitic mass] 29.4 pg 26.7 - 34.0 pg [facility] MCHC (RBC) [Mass/Vol] 32.2 g/dL 29.9 - 35.2 g/dL [facility] MCV (RBC) [Entitic vol] 91.3 fL 81.0 - 99.0 fL [facility] MONOCYTES ABSOLUTE AUTO 0.6 [facility] Monocytes/100 WBC (Bld) 5.3 % 1.7 - 12.0 % [facility] NEUTROPHILS ABSOLUTE AUTO 7.8 High [facility] Neutrophils/100 WBC (Bld) 75.6 % High 43.0 - 75.0 % [facility] Platelet mean volume (Bld) [Entitic vol] 11.7 fL 9.5 - 13.5 fL [facility] TBH EO # 0.4 [facility] PLT 292 [facility] RBC 5.17 [facility] WBC 10.3 [facility] Neftali 12-06-2024 L - -------- Specimen: [id number] Received: 12/07/24 Status: MARLEE Escobar Num: [id number] Spec Type: Surgical Subm Dr: Radha Brannon,DPM, MS Tissues: A Bone Fragments - Other than Path Fracture (RIGHT TIBIA) Procedures: HE, Gross/Micro L3, Decalcification -------- Age/ Patient Sex Location Account Attending Physician -------- Monica Acosta 63/F LABELL [id number] Radha Brannon DPM, MS -------- SPEC NUM: [id number] RECD: 12/07/24 STATUS: MARLEE ESCOBAR NUM: [id number] GLENROY: 12/06/24 [facility] DR: Radha Brannon DPM, MS ENTERED: 12/07/[address]: Solo,Lab SPEC TYPE: Surgical DEPT: AYAN COLINDRES ENTERED BY: [id number] RECV BY: [id number] ORDERED: HE, Gross/Micro L3, Decalcification ORDERED: HE, Gross/Micro L3, Decalcification Pathological Diagnosis Right tibia, biopsy: Soft tissue and bone with reactive changes. Clinical Information Osteomyelitis and ulcer right anterior lower leg Gross Description Part A is received in formalin labeled with the patients name, date of , and right tibia are lopez-doll, granular bone fragments, 2.8 x 1.4 x 0.8 cm in aggregate. Drying Room Supervisor sections are submitted in a single cassette after decalcification in rapid Cali immuno. (1, , OB02-183 A) CPT Codes 51770 -------- -------- Specimen: [id number] Received: 12/07/24 Status: MARLEE Alexisrica Num: [id number] Spec Type: Surgical Subm Dr: Radha Brannon,WALTER, MS Tissues: A Bone Fragments - Other than Path Fracture (RIGHT TIBIA) Procedures: ADY, Gross/Micro L3, Decalcification -------- Patient: Monica Acosta [id number] (Continued) -------- Signed (signature on file) Keyla Lewis MD 12/12/24 6454 Normal [facility] XR Tibia and Fibula - right 2 Viewson 12-06-[address] [address] XRay Report Signed Patient: DAVEMONICA MR#: [id number] : 1960 Acct:[id number] Age/Sex: 63 / F ADM Date: 12/06/24 Loc: SURGOUT Attending Dr: Radha Brannon D.P.M. Ordering Physician: Radha Brannon D.P.M. Date of Service: 12/06/24 Procedure(s): XR tibia fibula RT 2V Accession Number(s): [id number] cc: Radha Brannon D.P.M.; Rudolph Hurt M.D. The [place] [id number] Patient Name: MONICA ACOSTA MRN: [facility]:[id number] date: 1960 Sex: F Assigned Patient Location: SURGOUT Current Patient Location: [facility] Accession/Order Number: [id number] Exam Date: 12/06/2024 14:30 Report Date: 12/06/2024 [...] Solo Hill M.D.12/06/2024 2:32 PM Dictation Location: [place] [address] Electronically authenticated by: [id number] Y Date: 12/06/2024 14:32 Dictated By: Solo Hill D.O. Signed By: 12/06/241434 DD/ 31 TD/TT: Back Order Clerk: [facility] Radiology, Radiologist, MD - 12/06/2024 [place] [address] XRay Report Signed Patient: MONICA ACOSTA MR#: [id number] : 1960 Acct:[id number] Age/Sex: 63 / F ADM Date: 12/06/24 Loc: SURGOUT Attending Dr: Radha Brannon D.P.M. Ordering Physician: Radha Brannon D.P.M. Date of Service: 12/06/24 Procedure(s): XR tibia fibula RT 2V Accession Number(s): [id number] cc: Radha Brannon D.P.M.; Rudolph Hurt M.D. [place] [address] Patient Name: MONICA ACOSTA MRN: [id number]:[id number] date: 1960 Sex: F Assigned Patient Location: [facility] Current Patient Location: [facility] Accession/Order Number: [id number] Exam Date: 12/06/2024 14:30 Report Date: 12/06/2024 [...] Solo Hill M.D.12/06/2024 2:32 PM Dictation Location: [place] [address] Electronically authenticated by: [id number] Y Date: 12/06/2024 14:32 Dictated By: Solo Hill D.O. Signed By: 12/06/241434 DD/ 31 TD/TT: Back Order Clerk: [facility] Radiology Study observation (narrative) [facility] XR Tibia and Fibula - right 2 ViewsOrdered By: Radiologist Radiology on 12-06-2024 [facility] [employer] Work Phone: CT Lower extremity - right W O contraston 12-05-[address] [address] [address] Scan Report Signed Patient: MONICA ACOSTA MR#: [id number] : 1960 Acct:[id number] Age/Sex: 63 / F ADM Date: 12/05/24 Loc: CT Attending Dr: Radha Brannon D.P.M. Ordering Physician: Radha Brannon D.P.M. Date of Service: 12/05/24 Procedure(s): CT lower leg RT wo con Accession Number(s): [id number] cc: Rudolph Hurt M.D. The [address] [address] Patient Name: MONICA ACOSTA MRN: [id number] date: 1960 Sex: F Assigned Patient Location: CT Current Patient Location: [facility] Accession/Order Number: [id number] Exam Date: 12/05/2024 14:10 Report Date: 12/05/2024 [...] Solo Hill M.D.12/05/2024 2:22 PM Dictation Location: [place] [address] Electronically authenticated by: [id number] Y Date: 12/05/2024 14:22 Dictated By: Solo Hill D.O. Signed By: 12/05/24 1424 DD/ 1422 TD/TT: Back Order Clerk: [facility] Radiology, Radiologist, MD - 12/06/2024 [place] [address] CT Scan Report Signed Patient: MONICA ACOSTA MR#: [id number] : 1960 Acct:[id number] Age/Sex: 63 / F ADM Date: 12/05/24 Loc: CT Attending Dr: Radha Brannon D.P.M. Ordering Physician: Radha Brannon D.P.M. Date of Service: 12/05/24 Procedure(s): CT lower leg RT wo con Accession Number(s): [id number] cc: Rudolph Hurt M.D. The [place] [address] Patient Name: MONICA ACOSTA MRN: [facility]:[id number] date: 1960 Sex: F Assigned Patient Location: CT Current Patient Location: [facility] Accession/Order Number: [id number] Exam Date: 12/05/2024 14:10 Report Date: 12/05/2024 [...] Solo Hill M.D.12/05/2024 2:22 PM Dictation Location: [place] [address] Electronically authenticated by: [id number] Y Date: 12/05/2024 14:22 Dictated By: Solo Hill D.O. Signed By: 12/05/24 1424 DD/ 21 TD/TT: Back Order Clerk: [facility] Radiology Study observation (narrative) [facility] CT Lower extremity - right W O contrastOrdered By: Radiologist Radiology on 12-05-2024 [facility] [employer] Work Phone: [place] ECHO DOPPLER COMPLETEon 0 12-03-2024 [place] [address] Cardiology Report Signed Patient: MONICA ACOSTA MR#: [id number] : 1960 Acct:[id number] Age/Sex: 63 / F ADM Date: 12/03/24 Loc: CARD Attending Dr: TY CARTER Ordering Physician: TY CARTER Date of Service: 12/03/24 Procedure(s): CA echo doppler complete Accession Number(s): [id number] cc: TY CARTER; Rudolph Hurt M.D. Patient Name: MONICA ACOSTA MR#: [id number] : 1960 Exam Date: 12/03/2024 Ordering Doctor: [...] Signed By: 12/03/241951 (more content not included)... [facility] Radiology, Radiologist, MD - 12/03/2024 The [place] [id number] Cardiology Report Signed Patient: MONICA ACOSTA MR#: [id number] : 1960 Acct:[id number] Age/Sex: 63 / F ADM Date: 12/03/24 Loc: CARD Attending Dr: TY CARTER Ordering Physician: TY CARTER Date of Service: 12/03/24 Procedure(s): CA echo doppler complete Accession Number(s): [id number] cc: TY CARTER; Rudolph Hurt M.D. Patient Name: MONICA ACOSTA MR#: [id number] : 1960 Exam Date: 12/03/2024 Ordering Doctor: [...] CARTER Signed By: 12/03/241951 DD/ 50 TD/TT: Back Order Clerk: [facility] Radiology Study observation (narrative) [facility] CA ECHO DOPPLER COMPLETEOrde red By: Radiologist Radiology on 12-03-2024 [facility] [employer] Work Phone: [facility] APTTon 11-30-2024 aPTT Coag (Bld) [Time] 25.1 s [facility] No Panel Informationon 11-30 [facility] Office Visiton 11-30-2024 Follow-up visit [id number] Monica Acosta 1960 F Date Provider Department Center 11/30/2024 Maia-TY CARTER CARD [facility] Family History Problem Relation Age of Onset Anesthesia problems Mother Broken bones Mother Osteoporosis Mother Broken bones Father Stroke Father Coronary artery disease Father Family Status - Relation Status Age at Mother Father Level of Service:01520 NC OFFICE/OUTPATIENT NEW MODERATE MDM 45 MINUTES Normal [facility] SRMCOH PROTHROMBIN TIME INR W/O COUMon 11-30-2024 PT Coag (PPP) [Time] 10.8 s [facility] [place] TB INR 1.02 [facility] Comment on above: DESIRED INR: 2.0-3.0 CONDITIONS NOT LISTED BELOW 2.5-3.5 FOR PROSTHETIC HEART VALVE REPLACEMENT 2.5-3.5 RECURRENT THROMBOSIS XR OSSEOUS SURVEY LIMITEDon 11-20-2024 XR OSSEOUS SURVEY LIMITED XR OSSEOUS SURVEY LIMITED XR OSSEOUS SURVEY LIMITED Rheumatoid arthritis involving multiple sites, unspecified whether rheumatoid factor present ([facility]) Findings: There is grossly no [...] Ames MD on 11/20/2024 7:53 AM Normal [facility] CBC AND AUTO DIFFon 11-20-19 ABSOLUTE BASOPHIL 0.1 X10E9/L Normal 0.0-0.2 [facility] Comment on above: Performed By: #### 2 4331-1, 3016-3 #### [facility] ([id number]) [address], [address] [place] [address] ABSOLUTE NEUTROPHIL 5.8 X10E9/L Normal 1.5-6.6 [facility] Comment on above: Performed By: #### 2 4331-1, 3015-3 #### [facility] ([id number]) [address], [address] [place] [address] Basophils/100 WBC (Bld) 1.5 % Normal [facility] Comment on above: Performed By: #### 2 4331-1, 3015-3 #### [facility] ([id number]) [address], [address] [place] [address] Eosinophils (Bld) [#/Vol] 0.3 10*3/uL Normal 0.0-0.4 [facility] Comment on above: Performed By: #### 2 4331-1, 3015-3 #### [facility] ([id number]) [address], [address] [place] [address] Eosinophils/100 WBC (Bld) 3.6 % Normal [facility] Comment on above: Performed By: #### 2 433-1, 3015-3 #### [facility] ([id number]) [address], [address] [place] [address] Erythrocyte distribution width (RBC) [Ratio] 19.0 % High 11.5-15.0 [facility] Comment on above: Performed By: #### 2 4331-1, 3015-3 #### [facility] ([id number]) [address], [address] [place] [address] Hematocrit (Bld) [Volume fraction] 43.6 % Normal 35-47 [facility] Comment on above: Performed By: #### 2 4331-1, 3015-3 #### [facility] ([id number]) [address], [address] [place] [address] Hemoglobin (Bld) [Mass/Vol] 14.6 g/dL Normal 11.7-15.5 [facility] Comment on above: Performed By: #### 2 4331-1, 3015-3 #### [facility] ([id number]) [address], [address] [place] [address] Lymphocytes (Bld) [#/Vol] 1.1 10*3/uL Normal 1.0-3.5 [facility] Comment on above: Performed By: #### 2 4331-1, 3015-3 #### [facility] ([id number]) [address], [address] [place] [address] Lymphocytes/100 WBC (Bld) 14.2 % Normal [facility] Comment on above: Performed By: #### 2 4331-1, 3015- #### [facility] ([id number]) [address], [facility] [address] [place] [address] MCH (RBC) [Entitic mass] 29.8 pg Normal 27-34 [facility] Comment on above: Performed By: #### 2 4331-1, 3015- #### [facility] ([id number]) [address], [address] [place] [address] MCHC (RBC) [Mass/Vol] 33.5 g/dL Normal 32-36 [facility] Comment on above: Performed By: #### 2 4331-1, 3015- #### [facility] ([id number]) [address], [facility] [address] [place] [address] MCV (RBC) [Entitic vol] 89 fL Normal 80-100 [facility] Comment on above: Performed By: #### 2 4331-1, 3015-3 #### [facility] ([id number]) [address], [facility] [address] [place] [address] Monocytes (Bld) [#/Vol] 0.5 10*3/uL Normal 0-0.9 [facility] Comment on above: Performed By: #### 2 4331-1, 3015-3 #### [facility] ([id number]) [address], [address] [place] [address] Monocytes/100 WBC (Bld) 6.2 % Normal [facility] Comment on above: Performed By: #### 2 4331-1, 6-3 #### [facility] ([id number]) [address], [address] [place] [address] Neutrophils/100 WBC (Bld) 74.5 % Normal [facility] Comment on above: Performed By: #### 2 4331-1, 6-3 #### [facility] ([id number]) [address], [address] [place] [address] Platelet mean volume (Bld) [Entitic vol] 9.6 fL Normal 7-12 [facility] Comment on above: Performed By: #### 2 4331-1, 3015-3 #### [facility] ([id number]) [address], [address] [place] [address] Platelets (Bld) [#/Vol] 262 10*3/uL Normal 150-450 [facility] Comment on above: Performed By: #### 2 4331-1, 6-3 #### [facility] ([id number]) [address], [address] [place] [address] RBC COUNT 4.89 X10E12/L Normal 3.80-5.20 [facility] Comment on above: Performed By: #### 2 4331-1, 6-3 #### [facility] ([id number]) [address], [address] [place] [address] WBC (Bld) [#/Vol] 7.8 10*3/uL Normal 4.0-11.0 [facility] Comment on above: Performed By: #### 2 4331-1, 6-3 #### [facility] ([id number]) [address] [address] [place] [address] COMPREHENSIVE METABOLIC PANE Neftali 11-19-2024 Albumin [Mass/Vol] 4.1 g/dL Normal 3.2-5.3 [facility] Comment on above: Performed By: #### 1 5205-8, 3016-3, CMP, 1988-01, CBCA, 2131-9, 94898-4, 39414-6, 02164-6 #### [facility] ([id number]) [address], [address] [place] [address] ALP [Catalytic activity/Vol] 154 U/L High 39-130 [facility] Comment on above: Performed By: #### 1 5-8, 6-3, CMP, 1988-01, CBCA, 2132-05, 05136-3, 20951-9, 46579-0 #### [facility] ([id number]) [address], [address] [place] [address] ALT [Catalytic activity/Vol] 19 U/L Normal 0-31 [facility] Comment on above: Performed By: #### 1 5-8, 6-3, CMP, 1988-01, CBCA, 2132-05, 59589-4, 04860-1, 17624-5 #### [facility] ([id number]) [address], [address] [place] [address] Anion gap [Moles/Vol] 12 mmol/L Normal 5-15 [facility] Comment on above: Performed By: #### 1 5205-8, 3016-3, CMP, 1988-01, CBCA, 2132-05, 16738-5, 79145-4, 29073-4 #### [facility] ([id number]) [address], [address] [place] [address] AST [Catalytic activity/Vol] 28 U/L Normal 0-41 [facility] Comment on above: Performed By: #### 1 5-8, 3016-3, CMP, 1988-01, CBCA, 2131-9, 46522-3, 70559-8, 06701-6 #### [facility] ([id number]) [address], [address] [place] [address] Bilirubin [Mass/Vol] 0.4 mg/dL Normal 0.3-1.2 [facility] Comment on above: Performed By: #### 1 5204-8, 3015-3, CMP, 1988-01, CBCA, 2132-05, 61824-3, 66270-1, 75962-8 #### [facility] ([id number]) [address], [address] [place] [address] Calcium [Mass/Vol] 10.1 mg/dL Normal 8.5-10.5 [facility] Comment on above: Performed By: #### 1 8, 3, CMP, 1988-01, CBCA, 2132-05, 02454-7, 24344-5, 03618-5 #### [facility] ([id number]) [address], [address] [place] [address] Chloride [Moles/Vol] 99 mmol/L Normal 98-109 [facility] Comment on above: Performed By: #### 1 5204-8, 3015-3, CMP, 1988-01, CBCA, 2132-05, 73872-7, 20158-6, 84526-8 #### [facility] ([id number]) [address], [address] [place] [address] CO2 [Moles/Vol] 24 mmol/L Normal 22-32 [facility] Comment on above: Performed By: #### 1 5204-8, 3015-3, CMP, 1988-01, CBCA, 9, 53094-6, 08857-1, 99550-9 #### [facility] ([id number]) [address], [address] [place] [address] Creatinine [Mass/Vol] 1.24 mg/dL High 0.40-1.00 [facility] Comment on above: Result Comment: METH OD TRACEABLE TO IDMS STANDARD Performed By: #### 1 5-8, 3016-3, CMP, 1988-01, CBCA, 2132-05, 32559-9, 84997-6, 75443-3 #### [facility] ([id number]) [address], [address] [place] [address] GFR/1.73 sq M.predicted among non-blacks MDRD (S/P/Bld) [Vol rate/Area] 49 mL/min/{1.73_m2} Low >59 [facility] Comment on above: Result Comment: Reported eGFR is based on the CKD-EPI 2020 equation that does not use a race coefficient. Performed By: #### 1 5204-8, 3015-3, CMP, 1988-01, CBCA, 2132-05, 49529-3, 41419-3, 47864-5 #### [facility] ([id number]) [address], [address] [place] [address] Glucose [Mass/Vol] 189 mg/dL High 65-99 [facility] Comment on above: Performed By: #### 1 5-8, 3015-3, CMP, 1988-01, CBCA, 2132-05, 52326-1, 32795-7, 95455-7 #### [facility] ([id number]) [address], [address] [place] [address] Potassium [Moles/Vol] 5.0 mmol/L Normal 3.5-5.0 [facility] Comment on above: Performed By: #### 1 5-8, 6-3, CMP, 1988-01, CBCA, 2132-05, 04622-0, 91497-3, 60560-4 #### [facility] ([id number]) [address], [address] [place] [address] Protein [Mass/Vol] 7.9 g/dL Normal 6.0-8.0 [facility] Comment on above: Performed By: #### 1 5205-8, 3016-3, CMP, 1988-01, CBCA, 2132-05, 00675-8, 79393-1, 11402-0 #### [facility] ([id number]) [address], [address] [place] [address] Sodium [Moles/Vol] 135 mmol/L Normal 134-146 [facility] Comment on above: Performed By: #### 1 5-8, 6-3, CMP, 1988-01, CBCA, 2132-05, 16881-3, 49115-7, 40469-6 #### [facility] ([id number]) [address], [address] [place] [address] Urea nitrogen [Mass/Vol] 25 mg/dL Normal 5-27 [facility] Comment on above: Performed By: #### 1 5-8, 6-3, CMP, 1988-01, CBCA, 2132-05, 14600-0, 44370-0, 54095-4 #### [facility] ([id number]) [address], [address] [place] [address] CRP [Mass/Vol]on 11-19-2024 C REACTIVE PROTEIN 0.5 mg/dL Normal 0.000-0.744 [facility] Comment on above: Performed By: #### 2 4331-1, 3015-3 #### [facility] ([id number]) [address], [address] [place] [address] ESR Photometric method (Bld) [Velocity]on 11-19-2024 ESR, ERYTHROCYTE SEDIMENTATION RATE 29 mm/h Normal 0-30 [facility] Comment on above: Performed By: #### 2 4331-1, 3015-3 #### [facility] ([id number]) [address], [address] [place] [address] Rheumatoid factor Nephelomet ry Qn (S)on 11-19-2024 RHEUMATOID FACTOR 54 IU/mL High <20 [facility] Comment on above: Performed By: #### 1 5205-8, 3016-3, CMP, 1988-01, CBCA, 2132-05, 26497-1, 12755-1, 04175-4 #### [facility] ([id number]) [address] [place] [address] TSH Qnon 11-19-2024 TSH 3.01 uIU/mL Normal 0.49-4.67 [facility] Comment on above: Performed By: #### 1 5205-8, 3016-3, CMP, 1988-01, CBCA, 2132-05, 34062-0, 87738-5, 21096-6 #### [facility] ([id number]) [address] [place] [address] VITAMIN B12on 11-19-2024 Cobalamin (Vitamin B12) [Mass/Vol] 279 pg/mL Normal 180-914 [facility] Comment on above: Performed By: #### 2 4331-1, 3016-3 #### [facility] ([id number]) [address] [place] [address] Vitamin D+Metabolites [Mass/ Vol]on 11-19-2024 VITAMIN D 25 HYD TOT 55.1 ng/mL Normal 30-100 [facility] Comment on above: Result Comment: Vitamin D status 25 [place] Vitamin D Deficiency <20 ng/mL Insufficiency 20-29 ng/mL Sufficiency 30-100 ng/mL Toxicity >100 ng/mL NOTE: A pediatric reference range has not been established by the goat herder of this kit. The [place] [employer] recommends a Vitamin D level of = or >20ng/mL in infants and children. Performed By: #### 2 4331-1, 3016-3 #### [facility] ([id number]) [address] [place] [address] XR CHEST 2 VWSon 11-19-2024 XR CHEST 2 VWS XR CHEST 2 VWS EXAM: XR CHEST 2 VWS CLINICAL INFORMATION: Rheumatoid arthritis involving multiple sites, unspecified whether rheumatoid factor present ([facility]). COMPARISON: None. FINDINGS: There are low lung [...] Brenner MD on 11/19/2024 6:46 PM Normal [facility] Follow-Upon 10-15-2024 Follow-Up [id number] Monica Acosta 1960 F Date Provider Department Center 10/15/2024 OCT[facility]O LOZOYA MP ORTHO MPORTHO Family History Problem Relation Age of Onset Anesthesia problems Mother Broken bones Mother Osteoporosis Mother Broken bones Father Family Status - Relation Status Age at Mother Father Level of Service:84915 [place] OFFICE/OUTPATIENT ESTABLISHED LOW MDM 20 MIN (GC) Reason for Visit and Comments: Follow-up [878556] Pain [136] Follow-up [506549] Pain [136] Normal [facility] Glucose (Bld) [Mass/Vol]Orde red By: Meenakshi Heck on 08-21-2024 Glucose Blood, POC 100 mg/dL [facility] - Hematology and Cell countson 08-21-2024 HbA1c (Bld) [Mass fraction] 7.5 % [facility] No Panel InformationOrdered By: Meenakshi Heck on 08-21-2024 [facility] Follow-Upon 08-13-2024 Follow-Up [id number] Monica Acosta 1960 F Date Provider Department Center 08/13/2024 OCTAVIANO LOZOYA MP ORTHO MPORTHO Family History Problem Relation Age of Onset Anesthesia problems Mother Broken bones Mother Osteoporosis Mother Broken bones Father Family Status - Relation Status Age at Mother Father Level of Service:84215 [place] OFFICE/OUTPATIENT ESTABLISHED LOW MDM 20 MIN (GC) Reason for Visit and Comments: Follow-up [433854] Pain [136] Follow-up [547639] Pain [136] [facility] Office Visiton 07-09-2024 Follow-up visit [id number] Monica Acosta 1960 Date Provider Department Center 07/09/2024 OCTAVIANO LOZOYA MP ORTHO MPORTHO Family History Problem Relation Age of Onset Anesthesia problems Mother Broken bones Mother Osteoporosis Mother Broken bones Father Family Status - Relation Status Age at Mother Father Level of Service:22165 [place] POSTOP FOLLOW UP VISIT RELATED TO ORIGINAL PX (GC) Reason for Visit and Comments: Post-op [483] Post-op [483] [facility] Office Visiton 06-11-2024 Follow-up visit [id number] Oswald 1960 Provider Department Center 06/11/2024 OCTAVIANO LOZOYA MP ORTHO MPORTHO Family History Problem Relation Age of Onset Anesthesia problems Mother Broken bones Mother Osteoporosis Mother Broken bones Father Family Status - Relation Status Age at Mother Father Level of Service:12836 [place] POSTOP FOLLOW UP VISIT RELATED TO ORIGINAL PX (GC) Reason for Visit and Comments: Post-op [483] Pain [136] Post-op [483] Pain [136] [facility] 36on 05-15-2024 36 Looks like patient told Dr Shipman was already taking these medications. Dr shipman did not prescribe patient anything. She will need to contact pcp office. [facility] 36 Kady from [facility] called for clarification on calcium and vit D3 order from , [facility] does not currently have an order for calcium and vit D3 for patient, please fax clarification to Fax:[phone] [facility] Office Visiton 05-14-2024 Follow-up visit [id number] Oswald 1960 Date Provider Department Center 05/14/2024 OCTAVIANO LOZOYA MP MPORTHO Family History Problem Relation Age of Onset Anesthesia problems Mother Broken bones Mother Osteoporosis Mother Broken bones Father Family Status - Relation Status Age at Mother Father Level of Service:67331 [place] POSTOP FOLLOW UP VISIT RELATED TO ORIGINAL PX Reason for Visit and Comments: Post-op [483] Pain [136] Post-op [483] Pain [136] Normal [facility] BASIC METABOLIC PANLon 04-13 Anion gap [Moles/Vol] 10 mmol/L Normal 5-15 [facility] Comment on above: Performed By: #### B MP #### [facility] ([id number]) [address] [place] [address] Calcium [Mass/Vol] 9.9 mg/dL Normal 8.5-10.5 [facility] Comment on above: Performed By: #### B MP #### [facility] ([id number]) [address] [place] [address] Chloride [Moles/Vol] 100 mmol/L Normal 98-109 [facility] Comment on above: Performed By: #### B MP #### [facility] ([id number]) [address] [place] [address] CO2 [Moles/Vol] 27 mmol/L Normal 22-32 [facility] Comment on above: Performed By: #### B MP #### [facility] ([id number]) [address] [place] [address] Creatinine [Mass/Vol] 0.92 mg/dL Normal 0.40-1.00 [facility] Comment on above: Result Comment: METH OD TRACEABLE TO IDMS STANDARD Performed By: #### B MP #### [facility] ([id number]) [address], [address] [place] [address] GFR/1.73 sq M.predicted among non-blacks MDRD (S/P/Bld) [Vol rate/Area] 70 mL/min/{1.73_m2} Normal >59 [facility] Comment on above: Result Comment: Reported eGFR is based on the CKD-EPI 2020 equation that does not use a race coefficient. Performed By: #### B MP #### [facility] ([id number]) [address], [address] [place] [address] Glucose [Mass/Vol] 151 mg/dL High 65-99 [facility] Comment on above: Performed By: #### B MP #### [facility] ([id number]) [address], [address] [place] [address] Potassium [Moles/Vol] 4.5 mmol/L Normal 3.5-5.0 [facility] Comment on above: Performed By: #### B MP #### [facility] ([id number]) [address], [address] [place] [address] Sodium [Moles/Vol] 137 mmol/L Normal 134-146 [facility] Comment on above: Performed By: #### B MP #### [facility] ([id number]) [address], [address] [place] [address] Urea nitrogen [Mass/Vol] 28 mg/dL High 5-27 [facility] Comment on above: Performed By: #### B MP #### [facility] ([id number]) [address], [address] [place] [address] DRUG SCREEN, URINEon 024 AMPHETAMINE/METHAMP Negative Normal NEG [facility] Comment on above: Result Comment: AMPH /METH screening cut off = 1000 ng/mL Performed By: #### D SELENA DECKER #### [facility] ([id number]) [address], [address] [place] [address] BARBITURATES Negative Normal NEG [facility] Comment on above: Result Comment: Juana iturates screening cut off value = 200 ng/mL Performed By: #### Jero DECKER SELENA #### [facility] ([id number]) [address], [address] [place] [address] BENZODIAZEPINES Negative Normal [facility] Comment on above: Result Comment: Wade odiazepines screening cut off value = 200 ng/mL Performed By: #### Jero DECKER, SELENA #### [facility] ([id number]) [address] [place] [address] CANNABINOIDS Negative Normal NEG [facility] Comment on above: Result Comment: Venus abinoids/THC screening cut off value = 50 ng/mL Performed By: #### Jero DECKER FINESSEDRAGAN #### [facility] ([id number]) [address] [place] [address] COCAINE METABOLITE Negative Normal NEG [facility] Comment on above: Result Comment: Coca ine screening cut off value = 300 ng/mL Performed By: #### Jero DECKER FINESSEDRAGAN #### [facility] ([id number]) [address] [place] [address] ECSTASY Negative Normal [facility] Comment on above: Result Comment: Ecst asy screening cut off value = 500 ng/mL This report is intended for use in clinical monitoring or management of patients. Performed By: #### Jero DECKER FINESSEDRAGAN #### [facility] ([id number]) [address] [place] [address] METHADONE Negative Normal [facility] Comment on above: Result Comment: Meth adone screening cut off value = 300 ng/mL. Performed By: #### Jero DECKER FINESSEDRAGAN #### [facility] ([id number]) [address] [place] [address] OPIATES Negative Normal NEG [facility] Comment on above: Result Comment: Opia rafal screening cut off value = 300 ng/mL NOTE: This test is used for the detection of codeine, hydrocodone (>1000 ng/mL), morphine and hydromorphone (>900 ng/mL) in urine. Performed By: #### SELENA STINSON #### [facility] ([id number]) [address] [place] [address] OXYCODONE Negative Normal NEG [facility] Comment on above: Result Comment: Oxyc odone screening cut off value = 300 ng/mL NOTE: This test is used for the detection of oxycodone and oxymorphone in urine. Performed By: #### SELENA STINSON #### [facility] ([id number]) [address] [place] [address] PHENCYCLIDINE Negative Normal NEG [facility] Comment on above: Result Comment: Phen cyclidine screening cut off value = 25 ng/mL Performed By: #### SELENA STINSON #### [facility] ([id number]) [address] [place] [address] MICROALBUMIN - ALBUMIN:CREAT ININE URINE RATIOon 03-27-2024 ALB/CREAT RATIO 37.7 mg/g creat High 0.0-30.0 [facility] Comment on above: Performed By: #### SELENA STINSON #### [facility] ([id number]) [address] [address] Albumin DL <= 20 mg/L (U) [Mass/Vol] 2.0 mg/dL High 0.0-1.9 [facility] Comment on above: Performed By: #### Jero DECKER FINESSEDRAGAN #### [facility] ([id number]) [address], [address] [place] [address] URINE CREAT 53.06 mg/dL Normal [facility] Comment on above: Performed By: #### SELENA STINSON #### [facility] ([id number]) [address] [place] [address] COMPLETE BLOOD COUNTon 03-26 Erythrocyte distribution width (RBC) [Ratio] 14.4 % Normal 11.5-15.0 [facility] Comment on above: Performed By: #### C SHEEBA, CMP #### [facility] ([id number]) [address] [place] [address] Hematocrit (Bld) [Volume fraction] 40.1 % Normal 35-47 [facility] Comment on above: Performed By: #### C SHEEBA, CMP #### [facility] ([id number]) [address], [address] [place] [address] Hemoglobin (Bld) [Mass/Vol] 13.5 g/dL Normal 11.7-15.5 [facility] Comment on above: Performed By: #### C SHEEBA, CMP #### [facility] ([id number]) [address], [address] [place] [address] MCH (RBC) [Entitic mass] 30.8 pg Normal 27-34 [facility] Comment on above: Performed By: #### C SHEEBA, CMP #### [facility] ([id number]) [address] [place] [address] MCHC (RBC) [Mass/Vol] 33.7 g/dL Normal 32-36 [facility] Comment on above: Performed By: #### C SHEEBA, CMP #### [facility] ([id number]) [address] [place] [address] MCV (RBC) [Entitic vol] 91 fL Normal 80-100 [facility] Comment on above: Performed By: #### C SHEEBA, CMP #### [facility] ([id number]) [address] [place] [address] Platelet mean volume (Bld) [Entitic vol] 9.8 fL Normal 7-12 [facility] Comment on above: Performed By: #### C BC, CMP #### [facility] ([id number]) [address] [place] [address] Platelets (Bld) [#/Vol] 308 10*3/uL Normal 150-450 [facility] Comment on above: Performed By: #### C BC, CMP #### [facility] ([id number]) [address] [place] [address] RBC COUNT 4.39 X10E12/L Normal 3.80-5.20 [facility] Comment on above: Performed By: #### C BC, CMP #### [facility] ([id number]) [address] [place] [address] WBC (Bld) [#/Vol] 10.1 10*3/uL Normal 4.0-11.0 [facility] Comment on above: Performed By: #### C SHEEBA, CMP #### [facility] ([id number]) [address], [address] [place] [address] COMPREHENSIVE METABOLIC PANE Neftali 03-26-2024 Albumin [Mass/Vol] 3.8 g/dL Normal 3.2-5.3 [facility] Comment on above: Performed By: #### C BC, CMP #### [facility] ([id number]) [address] [place] [address] ALP [Catalytic activity/Vol] 133 U/L High 39-130 [facility] Comment on above: Performed By: #### C BC, CMP #### [facility] ([id number]) [address] [place] [address] ALT [Catalytic activity/Vol] 22 U/L Normal 0-31 [facility] Comment on above: Performed By: #### C BC, CMP #### [facility] ([id number]) [address] [place] [address] Anion gap [Moles/Vol] 7 mmol/L Normal 5-15 [facility] Comment on above: Performed By: #### C SHEEBA, CMP #### [facility] ([id number]) [address] [place] [address] AST [Catalytic activity/Vol] 24 U/L Normal 0-41 [facility] Comment on above: Performed By: #### C SHEEBA, CMP #### [facility] ([id number]) [address] [place] [address] Bilirubin [Mass/Vol] 0.4 mg/dL Normal 0.3-1.2 [facility] Comment on above: Performed By: #### C SHEEBA, CMP #### [facility] ([id number]) [address] [place] [address] Calcium [Mass/Vol] 9.6 mg/dL Normal 8.5-10.5 [facility] Comment on above: Performed By: #### C SHEEBA, CMP #### [facility] ([id number]) [address] [place] [address] Chloride [Moles/Vol] 102 mmol/L Normal 98-109 [facility] Comment on above: Performed By: #### Sheila ALY, CMP #### [facility] ([id number]) [address] [place] [address] CO2 [Moles/Vol] 28 mmol/L Normal 22-32 [facility] Comment on above: Performed By: #### C SHEEBA, CMP #### [facility] ([id number]) [address] [place] [address] Creatinine [Mass/Vol] 0.96 mg/dL Normal 0.40-1.00 [facility] Comment on above: Result Comment: METH OD TRACEABLE TO IDMS STANDARD Performed By: #### C SHEEBA, CMP #### [facility] ([id number]) [address] [place] [address] GFR/1.73 sq M.predicted among non-blacks MDRD (S/P/Bld) [Vol rate/Area] 66 mL/min/{1.73_m2} Normal >59 [facility] Comment on above: Result Comment: Reported eGFR is based on the CKD-EPI 2020 equation that does not use a race coefficient. Performed By: #### C BC, CMP #### [facility] ([id number]) [address] [place] [address] Glucose [Mass/Vol] 179 mg/dL High 65-99 [facility] Comment on above: Performed By: #### C BC, CMP #### [facility] ([id number]) [address] [address] [place] [address] Potassium [Moles/Vol] 5.1 mmol/L High 3.5-5.0 [facility] Comment on above: Performed By: #### C BC, CMP #### [facility] ([id number]) [address] [address] [place] [address] Protein [Mass/Vol] 7.2 g/dL Normal 6.0-8.0 [facility] Comment on above: Performed By: #### C BC, CMP #### [facility] ([id number]) [address] [place] [address] Sodium [Moles/Vol] 137 mmol/L Normal 134-146 [facility] Comment on above: Performed By: #### C BC, CMP #### [facility] ([id number]) [address] [address] [place] [address] Urea nitrogen [Mass/Vol] 23 mg/dL Normal 5-27 [facility] Comment on above: Performed By: #### C BC, CMP #### [facility] ([id number]) [address] [place] [address] Lipid 1996 panelon 4 Cholesterol [Mass/Vol] 106 mg/dL Low 150 - 200 mg/dL [facility] Cholesterol in HDL [Mass/Vol] 46 mg/dL 39 - PINF mg/dL [facility] Comment on above: HDL <40 mg/dL - High Risk HDL > or = 40mg/dL- Desirable HDL >60 mg/dL - Negative Risk Cholesterol in LDL [Mass/Vol] 38 mg/dL NINF - 130 mg/dL [facility] Comment on above: LDL <100 mg/dL - Desirable LDL >160 mg/dL - High Risk Cholesterol in VLDL [Mass/Vol] 22 mg/dL 0 - 30 mg/dL [facility] Cholesterol.total/Cho lesterol in HDL [Mass ratio] 2.3 {ratio} 1.0 - 5.0 [facility] Interpretation and review of laboratory results Abnormal [facility] Triglyceride [Mass/Vol] 110 mg/dL 27 - 150 mg/dL [facility] Cholesterol [Mass/Vol] 106 mg/dL Low 150-200 [facility] Comment on above: Performed By: #### 2 4331-1, 3016-3 #### [facility] ([id number]) [address], [address] [place] [address] Cholesterol in HDL [Mass/Vol] 46 mg/dL Normal >39 [facility] Comment on above: Result Comment: HDL <40 mg/dL - High Risk HDL > or = 40mg/dL- Desirable HDL >60 mg/dL - Negative Risk Performed By: #### 2 4331-1, 3015-3 #### [facility] ([id number]) [address], [address] [place] [address] Cholesterol in LDL [Mass/Vol] 38 mg/dL Normal <130 [facility] Comment on above: Result Comment: LDL <100 mg/dL - Desirable LDL >160 mg/dL - High Risk Performed By: #### 2 4331-1, 3015-3 #### [facility] ([id number]) [address], [address] [place] [address] Cholesterol in VLDL [Mass/Vol] 22 mg/dL Normal 0-30 [facility] Comment on above: Performed By: #### 2 4331-1, 3015-3 #### [facility] ([id number]) [address], [address] [place] [address] CHOLESTEROL:HDL 2.3 Normal 1.0-5.0 [facility] Comment on above: Performed By: #### 2 4331-1, 3015-3 #### [facility] ([id number]) [address], [address] [place] [address] Triglyceride [Mass/Vol] 110 mg/dL Normal 27-150 [facility] Comment on above: Performed By: #### 2 4331-1, 6-3 #### [facility] ([id number]) [address], [address] [place] [address] TSHon 12-05-2023 TSH Qn 3.00 m[IU]/L [facility] TSH Qnon 12-05-2023 [facility] TSH 3.00 uIU/mL Normal 0.49-4.67 [facility] Comment on above: Performed By: #### 2 4331-1, 6-3 #### [facility] ([id number]) [address], [address] [place] [address] POINT OF CARE GLUCOSEon 10-06 Glucose [Mass/Vol] 252 mg/dL Critically high 74-106 [facility] Comment on above: Performed By: #### P OCGLUC ####[facility] Hqdxlklive[address] [place] [address]Dr. Abiel Clement PROF CHEM 8 (BAS METB)on Anion gap [Moles/Vol] 11.5 mmol/L Normal [facility] Comment on above: Performed By: #### B MP ####[facility] Uodxcflaye[address] [place], [place] [address]Dr. Abiel Clement Calcium [Mass/Vol] 9.6 mg/dL Normal 8.5-10.1 [facility] Comment on above: Performed By: #### B MP ####[facility] Vjqsltpbai[address] [place], [place] [address]Dr. Abiel Clement Chloride [Moles/Vol] 102 mmol/L Normal 98-107 [facility] Comment on above: Performed By: #### B MP ####[facility] Cxfilwdblk8040[address] [place], [place] [address]Dr. Abiel Clement CO2 [Moles/Vol] 30.8 mmol/L Normal 21.0-32.0 [facility] Comment on above: Performed By: #### B MP ####[facility] Cudapzyfja58[address] [place], [place] [address]Dr. Abiel Clement Creatinine [Mass/Vol] 0.72 mg/dL Normal 0.55-1.02 [facility] Comment on above: Performed By: #### B MP ####[facility] Yhzobgywdc9[address] [place], [place] [address]Dr. Abiel Clement EGFR-AF DANISH >60 Normal >=60 [facility] Comment on above: Performed By: #### B MP ####[facility] Zgeecpvson69[address] [place], [place] [address]Dr. Abiel Clement EGFR-NON AF DANISH >60 Normal >=60 [facility] Comment on above: Performed By: #### B MP ####[facility] Ubgjqalget25[address] [place] [address]Dr. Abiel Clement Glucose [Mass/Vol] 127 mg/dL Critically high 74-106 [facility] Comment on above: Performed By: #### B MP ####[facility] Byxbmgbltw0921 [place] [address]Dr. Abiel Clement Potassium [Moles/Vol] 4.3 mmol/L Normal 3.5-5.1 [facility] Comment on above: Performed By: #### B MP ####[facility] Otjzuknmwp9[address] [place], [place] [address]Dr. Abiel Clement Sodium [Moles/Vol] 140 mmol/L Normal 136-145 [facility] Comment on above: Performed By: #### B MP ####[facility] Uchjocujvn9433[address] [place], [place] [address]Dr. Abiel Clement Urea nitrogen [Mass/Vol] 17.0 mg/dL Normal 7.0-18.0 [facility] Comment on above: Performed By: #### B MP ####[facility] Tlcczagyaf3156[address] [place], [place] [address]Dr. Abiel Clement Urea nitrogen/Creatinine [Mass ratio] 23.6 mg/mg Normal [facility] Comment on above: Performed By: #### B MP ####[facility] Lyrhxnbsoi5[address] [place], [place] [address]Dr. Abiel Clement CULTURE URINEon 08-07-2022 CULTURE URINE Normal [facility] Comment on above: Performed By: #### U RCX ####[facility] Mvrwrxftuv67[address] [place] [id number]. Abiel Clement CBC W MANUAL DIFFon 08-05-20 ANISOCYTOSIS SLIGHT Normal [facility] Comment on above: Performed By: #### C ALVINO ####[facility] Jkhbptivvh8170 [place] [address]Dr. Abiel Clement ATYPICAL LYMPH # Normal [facility] Comment on above: Performed By: #### C BCALLY ####[facility] Szmbsgoyzi2746 [place] [phone]. Abiel Clement ATYPICAL LYMPH % Normal [facility] Comment on above: Performed By: #### C BCMAN ####[facility] Wamviydlqq7156 [place] [id number]. Abiel Clement BAND # 0.6 103/ul Critically high 0.0-0.3 [facility] Comment on above: Performed By: #### C BCALLY ####[facility] Hkuxzxdcrd4684 [place] [address]Dr. Yilan Clement BAND % 3 % Normal 0-5 [facility] Comment on above: Performed By: #### C BCALLY ####[facility] Pwoyvgprbb659[address] [place], [place] [address]Dr. Abiel Clement BASOM # 0.00 103/ul Normal 0.00-0.10 [facility] Comment on above: Performed By: #### C BCALLY ####[facility] Sbvyukyxvk260[address] [place], [place] [address]Dr. Abiel Clement BASOM % 0.0 % Critically low 0.2-2.0 [facility] Comment on above: Performed By: #### C BCALLY ####[facility] Tqgtjvufqb70[address] [place], [place] [address]Dr. Abiel Clement BLAST # Normal [facility] Comment on above: Performed By: #### C ALVINO ####[facility] Aypdmzbssm8124 [place] [address]Dr. Yilan Clement BLAST % Normal [facility] Comment on above: Performed By: #### C ALVINO ####[facility] Zybwmspkyo3984 [place] [address]Dr. Abiel Clement CORRECTED WBC Normal 4.0-11.0 The [facility] Comment on above: Performed By: #### C BCALLY ####[facility] Vqlfpgykcd7327 [place] [address]Dr. Abiel Clement EOS # 0.00 103/ul Normal 0.00-0.70 [facility] Comment on above: Performed By: #### C BCALLY ####[facility] Jrpoygpmkj6639 [place], [place] [address]Bm. Abiel Clement EOS% 0.0 % Critically low 0.9-7.0 [facility] Comment on above: Performed By: #### C ALVINO ####[facility] Ujwtstmeni9105 [place], [place] [address]Fk. Abiel Clement HCT 34.0 % Critically low 36.0-48.0 [facility] Comment on above: Performed By: #### C ALVINO ####[facility] Qjrbxtqjxd4578 [place], [place] [address]Va. Abiel Clement HGB 10.8 g/dl Critically low 12.0-16.0 [facility] Comment on above: Performed By: #### C ALVINO ####[facility] Nqzemfuocj4398 [place], [place] [address]Zz. Abiel Clement LYMPHM # 0.61 103/ul Critically low 1.20-3.80 [facility] Comment on above: Performed By: #### C ALVINO ####[facility] Gragkcavnc7857 [place], [place] [address]Yd. Abiel Clement LYMPHM% 3.0 % Critically low 20.5-60.0 [facility] Comment on above: Performed By: #### C ALVINO ####[facility] Fsprhorxom6435 [place], [place] [address]Ws. Abiel Clement MCH 27.3 pg Normal 26.7-34.0 [facility] Comment on above: Performed By: #### C ALVINO ####[facility] Rudhjrmesv1414 [place], [place] [address]Eb. Abiel Clement MCHC 31.8 g/dl Normal 29.9-35.2 [facility] Comment on above: Performed By: #### C ALVINO ####[facility] Fpkfrccckf6703 [place], [place] [address]Jh. Abiel Clement MCV 85.9 fL Normal 81.0-99.0 [facility] Comment on above: Performed By: #### C ALVINO ####[facility] Akqptxgoav2276 [place] [phone]. Abiel Clement METAMYELOCYTE # Normal [facility] Comment on above: Performed By: #### C ALVINO ####[facility] Obdkvcaapg9057 [place] [phone]. Abiel Clement METAMYELOCYTE % Normal [facility] Comment on above: Performed By: #### C ALVINO ####[facility] Kukmlxusbp0671 [place] [phone]. Abiel Clement MONOM# 1.01 103/ul Critically high 0.30-0.80 [facility] Comment on above: Performed By: #### C ALVINO ####[facility] Vldwzprbzs2928 [place] [phone]. Abiel Clement MONOM% 5.0 % Normal 1.7-12.0 [facility] Comment on above: Performed By: #### C ALVINO ####[facility] Fdibbvhnnm8[address] [place], [place] [address]Dr. Abiel Urbano MPV 11.1 fL Normal 9.5-13.5 [facility] Comment on above: Performed By: #### C ALVINO ####[facility] Vtdfcljann88[address] [place], [place] [address]Dr. Abiel Clement MYELOCYTE # Normal [facility] Comment on above: Performed By: #### C ALVINO ####[facility] Ommcldxyix0962[address] [place], [place] [address]Dr. Abiel Urbano MYELOCYTE % Normal [facility] Comment on above: Performed By: #### C ALVINO ####[facility] Cbpomazqwb9177[address] [place], [place] [address]Dr. Abiel Urbano NRBC Normal [facility] Comment on above: Performed By: #### C ALVINO ####[facility] Ctlgvduqpm[address]15[address] [place], [place] [address]Dr. Suyapaviviana Urbano PLT 283 103/ul Normal 150-450 [facility] Comment on above: Performed By: #### C ALVINO ####[facility] Mpolexpudr3452[address] [place], [place] [address]Dr. Abiel Urbano RBC 3.96 106/ul Critically low 4.20-5.40 [facility] Comment on above: Performed By: #### C ALVINO ####[facility] Qldjdqlqdc1668 [place] [address]Dr. Abiel Clement RDW 15.4 % Critically high 11.0-15.0 [facility] Comment on above: Performed By: #### C ALVINO ####[facility] Kkugokhwrd5409 [place] [address]Dr. Abiel Clement SEG # 18.07 103/ul Critically high 1.40-6.[address] [facility] Comment on above: Performed By: #### C ALVINO ####[facility] Wefwdwxtma9869[address] [place], [place] [address]Dr. Abiel Clement SEG % 89.0 % Critically high 43.0-75.0 [facility] Comment on above: Performed By: #### C ALVINO ####[facility] Fladcckety34[address] [place], [place] [address]Dr. Abiel Urbano WBC 20.3 103/ul Critically high 4.0-11.0 [facility] Comment on above: Performed By: #### Sheila DE OLIVEIRA ####[facility] Anwujdqisr8923[address] [place], [place] [address]DrKasia Abiel Urbano LACTATE/LACTIC ACIDon 2021 Lactate [Moles/Vol] 2.5 mmol/L Critically high 0.4-1.9 [facility] Comment on above: Performed By: #### L ACT ####[facility] Mxfjdsklqe2728 [place] [address]Dr. Abiel Urbano POINT OF CARE GLUCOSEon Glucose [Mass/Vol] 238 mg/dL Critically high 74-106 [facility] Comment on above: Performed By: #### P OCGLUC ####[facility] Vaajtuvfmk2461 [place] [address]DrKasia Suyapaviviana Clement PROF CHEM 8 (BAS METB)on Anion gap [Moles/Vol] 10.8 mmol/L Normal [facility] Comment on above: Performed By: #### B MP ####[facility] Qygsrragee1145 [place] [address]Dr. Abiel Clement Calcium [Mass/Vol] 8.4 mg/dL Critically low 8.5-10.1 Th e [facility] Comment on above: Performed By: #### B MP ####[facility] Wpeqteebvz6456 [place] [address]Dr. Abiel Clement Chloride [Moles/Vol] 103 mmol/L Normal 98-107 [facility] Comment on above: Performed By: #### B MP ####[facility] Uxkzhhxfvr9468 [place] [address]Dr. Abiel Clement CO2 [Moles/Vol] 27.0 mmol/L Normal 21.0-32.0 [facility] Comment on above: Performed By: #### B MP ####[facility] Fspwlvjarb0425[address] [place], [place] [address]Dr. Abiel Clement Creatinine [Mass/Vol] 1.02 mg/dL Normal 0.55-1.02 [facility] Comment on above: Performed By: #### B MP ####[facility] Wbgwmykhlt0849[address] [place], [place] [address]Dr. Abiel Clement EGFR-AF DANISH >60 Normal >=60 [facility] Comment on above: Performed By: #### B MP ####[facility] Irjlcajfmn9550[address] [place], [place] [address]Dr. Abiel Urbano EGFR-NON AF DANISH 55 mL/min/1.73m2 Critically low >=60 [facility] Comment on above: Performed By: #### B MP ####[facility] Ckirvbohkh69[address] [place], [place] [address]Dr. Abiel Clement Glucose [Mass/Vol] 199 mg/dL Critically high 74-106 [facility] Comment on above: Performed By: #### B MP ####[facility] Wlehtvbnwd3480[address] [place], [place] [address]Dr. Abiel Clement Potassium [Moles/Vol] 3.8 mmol/L Normal 3.5-5.1 [facility] Comment on above: Performed By: #### B MP ####[facility] Qyqltjhsue5421 [place] [phone]. Abiel Clement Sodium [Moles/Vol] 137 mmol/L Normal 136-145 [facility] Comment on above: Performed By: #### B MP ####[facility] Tnboidmsod0756 [place] [phone]. Abiel Clement Urea nitrogen [Mass/Vol] 21.0 mg/dL Critically high 7.0-18.0 [facility] Comment on above: Performed By: #### B MP ####[facility] Jipavsbtbl9884[address] [place], [place] [address]Dr. Abiel Urbano Urea nitrogen/Creatinine [Mass ratio] 20.6 mg/mg Normal [facility] Comment on above: Performed By: #### B MP ####[facility] Cbimscokdt0538[address] [place], [place] [address]Dr. Abiel Urbano ACETONE SERUMon 08-04-2022 ACETONE Negative Normal NEGATIVE [facility] Comment on above: Performed By: #### A CETON ####[facility] Ksysmudetu7316[address] [place], [place] [address]Dr. Abiel Urbano AMMONIAon 08-04-2022 Ammonia (P) [Moles/Vol] 24 umol/L Normal 11-32 [facility] Comment on above: Performed By: #### A MM ####[facility] Dvnwyvicrm622[address] [place], [place] [address]Dr. Abiel Urbano CBC AUTO DIFFon 08-04-2022 BASO # 0.0 103/ul Normal 0.0-0.1 [facility] Comment on above: Performed By: #### C BC ####[facility] Xbnetzdvqq1154[address] [place], [place] [address]Dr. Suyapaviviana Clement Basophils/100 WBC (Bld) 0.3 % Normal 0.2-2.0 [facility] Comment on above: Performed By: #### C BC ####[facility] Wxgzzfjffl4024[address] [place], [place] [address]Dr. Abiel Clement EO # 0.0 103/ul Normal 0.0-0.7 [facility] Comment on above: Performed By: #### C BC ####[facility] Hazqlrbccs5873 [place] [address]Dr. Abiel Clement Eosinophils/100 WBC (Bld) 0.4 % Critically low 0.9-7.0 [facility] Comment on above: Performed By: #### C BC ####[facility] Qydrgmfpoi2950[address] [place], [place] [address]Dr. Abiel Clement Erythrocyte distribution width (RBC) [Ratio] 15.1 % Critically high 11.0-15.0 [facility] Comment on above: Performed By: #### C BC ####[facility] Eenrdjwouf5147[address] [place], [place] [address]Dr. Abiel Clement Hematocrit (Bld) [Volume fraction] 37.7 % Normal 36.0-48.0 [facility] Comment on above: Performed By: #### C BC ####[facility] Lnjxhaagot2610[address] [place], [place] [address]Dr. Abiel Clement Hemoglobin (Bld) [Mass/Vol] 12.4 g/dL Normal 12.0-16.0 [facility] Comment on above: Performed By: #### C BC ####[facility] Aylfsjqhny8934[address] [place], [place] [address]Dr. Abiel Clement IG # 0.02 10e3/ul Normal 0.00-0.03 [facility] Comment on above: Performed By: #### C BC ####[facility] Mtmelligsy9198[address] [place], [place] [address]Dr. Abiel Clement IG % 0.2 % Normal 0.0-0.5 [facility] Comment on above: Performed By: #### C BC ####[facility] Kydgiyqnxo8130[address] [place], [place] [address]Dr. Abiel Clement LYMPH # 0.6 103/ul Critically low 1.2-3.8 The [facility] Comment on above: Performed By: #### C BC ####[facility] Srmbeladdx6435[address] [place], [place] [address]Dr. Abiel Clement Lymphocytes/100 WBC (Bld) 6.8 % Critically low 20.5-60.0 [facility] Comment on above: Performed By: #### C BC ####[facility] Dpjgpkrajw9830 [place] [address]Dr. Abiel Clement MANUAL DIFF REQ NO Normal [facility] Comment on above: Performed By: #### C BC ####[facility] Ybtlosypuw7510 [place] [phone]. Abiel Clement MCH (RBC) [Entitic mass] 27.7 pg Normal 26.7-34.0 [facility] Comment on above: Performed By: #### C BC ####[facility] Atgvtzlmfw9512 [place] [address]Dr. Abiel Clement MCHC (RBC) [Mass/Vol] 32.9 g/dL Normal 29.9-35.2 [facility] Comment on above: Performed By: #### C BC ####[facility] Ggdtjcjiee144[address] [place], [place] [address]Dr. Abiel Clement MCV (RBC) [Entitic vol] 84.2 fL Normal 81.0-99.0 [facility] Comment on above: Performed By: #### C BC ####[facility] Zhyypcjope1920[address] [place], [place] [address]Dr. Abiel Clement MONO # 0.4 103/ul Normal 0.3-0.8 [facility] Comment on above: Performed By: #### C BC ####[facility] Lprsedrxhs9829 [place] [address]Dr. Abiel Clement Monocytes/100 WBC (Bld) 4.7 % Normal 1.7-12.0 [facility] Comment on above: Performed By: #### C BC ####[facility] Blmrmhqelc4[address] [place], [place] [address]DrKasia Clement NEUT # 8.1 103/ul Critically high 1.4-6.5 [facility] Comment on above: Performed By: #### C BC ####[facility] Luvcnjskwp3432 [place] [address]Dr. Abiel Clement Neutrophils/100 WBC (Bld) 87.6 % Critically high 43.0-75.0 The [facility] Comment on above: Performed By: #### C BC ####[facility] Xvohotqozt0627 [place] [phone]. Abiel Clement Platelet mean volume (Bld) [Entitic vol] 10.5 fL Normal 9.5-13.5 [facility] Comment on above: Performed By: #### C BC ####[facility] Onaddioqhi9187 [place] [phone]. Abiel Clement PLT 286 103/ul Normal 150-450 [facility] Comment on above: Performed By: #### C BC ####[facility] Mwqidgrewr1247 [place] [phone]. Abiel Clement RBC 4.48 106/ul Normal 4.20-5.40 [facility] Comment on above: Performed By: #### C BC ####[facility] Cnnafanwis1108 [place] [phone]. Abiel Clement WBC 9.2 103/ul Normal 4.0-11.0 [facility] Comment on above: Performed By: #### C BC ####[facility] Wahwejomxt8064 [place] [phone]. Abiel Clement CT ABD/PELV W CONon 08-04-20 CT ABD/PELV W CON Normal [facility] CT HEAD WO CONon 08-04-2022 CT HEAD WO CON Normal [facility] CULTURE BLOODon 08-04-2022 Microscopic examination of blood, culture Culture Observations: NO GROWTH AT 5 DAYS. Normal [facility] Comment on above: Performed By: #### B LDCX1 ####[facility] Iyvtughbrh7742 [place] [address]Dr. Abiel Clement Performed By: #### B LDCX2 ####[facility] Gvoxfupmyc6754 [place] [address]Dr. Abiel Clement Covid-19 PCR (CVDTB)on 07-08 SARS-CoV-2 (COVID-19) RNA CLARIBEL+probe Ql (Unsp spec) Not detected Normal NOT DETECTED [facility] Comment on above: Result Comment: [...] for this test is supported by the [place] of Health and Human Service's declaration that [...] be used). Performed By: #### C VDTBH ####[facility] Crgsjtespr8168[address] [place], [place] [address]Dr. Abiel Clement DRUG SCREEN RAPID (URINE)on 08-04-2022 AMP Negative Normal NEGATIVE [facility] Comment on above: Performed By: #### D RUGRPD ####[facility] Vnsrrjfyoa25[address] [place], [place] [address]Dr. Abiel Clement BAR Negative Normal NEGATIVE [facility] Comment on above: Performed By: #### D RUGRPD ####[facility] Eydnywtnkt5990 [place] [phone]. Abiel Clement BUP Negative Normal NEGATIVE [facility] Comment on above: Performed By: #### D RUGRPD ####[facility] Fjreptvhmw8900 [place] [phone]. Abiel Clement BZO Negative Normal NEGATIVE [facility] Comment on above: Performed By: #### D RUGRPD ####[facility] Skghhwcdeb0187 [place] [phone]. Abiel Clement CAROLINE Negative Normal NEGATIVE [facility] Comment on above: Performed By: #### D RUGRPD ####[facility] Pidanihirs4[address] [place], [place] [address]Dr. Abiel Clement CUT-OFFS SEE BELOW Normal [facility] Comment on above: Result Comment: [...] 300 ng/mL Performed By: #### D RUGRPD ####[facility] Hnyztipwww28[address] [place], [place] [address]Dr. viviana [facility] DRUG CUT HEADER DRUG CLASS TEST SYSTEM CUT-OFF CONCENTRATIONS ARE FOLLOWS: Normal [facility] Comment on above: Performed By: #### D RUGRPD ####[facility] Skuuweouwm5989[address] [place], [place] [address]Dr. Abiel Clement mAMP Negative Normal NEGATIVE [facility] Comment on above: Performed By: #### D RUGRPD ####[facility] Legssxilms8858[address] [place], [place] [address]Dr. Abiel Clement MTD Negative Normal NEGATIVE [facility] Comment on above: Performed By: #### D RUGRPD ####[facility] Hyslpshcxn2497[address] [place], [place] [address]Dr. Abiel Clement OPI Positive Abnormal NEGATIVE [facility] Comment on above: Performed By: #### D RUGRPD ####[facility] Lyovivoack3357[address] [place], [place] [address]Dr. Abiel Clement OXY Negative Normal NEGATIVE [facility] Comment on above: Performed By: #### D RUGRPD ####[facility] Eksefvewxx3697[address] [place], [place] [address]Dr. Abiel Clement PCP Negative Normal NEGATIVE [facility] Comment on above: Performed By: #### D RUGRPD ####[facility] Kpzuusnfgn0488[address] [place], [place] [address]Dr. Abiel Clement PPX Negative Normal NEGATIVE [facility] Comment on above: Performed By: #### D RUGRPD ####[facility] Msragyzbnd0931 [place] [address]Dr. Abiel Urbano TCA Negative Normal NEGATIVE [facility] Comment on above: Performed By: #### D RUGRPD ####[facility] Attsbtvvma7703 [place] [address]Dr. Abiel Urbano THC Negative Normal NEGATIVE [facility] Comment on above: Performed By: #### D RUGRPD ####[facility] Bypisveacs5048[address] [place], [place] [address]Dr. Abiel Clement ER URINE PROFILEon 2 Bilirubin Ql (U) Negative Normal NEGATIVE The [facility] Comment on above: Performed By: #### CARLOS ACERO ####[facility] Nlxppiqxcu8978[address] [place], [place] [address]Dr. Abiel Clement Clarity (U) CLEAR Normal CLEAR [facility] Comment on above: Performed By: #### CARLOS ACERO ####[facility] Qnzjhqpxnz658[address] [place], [place] [address]Dr. Abiel Clement Color (U) LT. YELLOW Normal YELLOW [facility] Comment on above: Performed By: #### CARLOS ACERO ####[facility] Nljreikgzh664[address] [place], [place] [address]Dr. Abiel Clement ERUAHD A micrscopic examination will be performed if indicated. Normal [facility] Comment on above: Performed By: #### CARLOS ACERO ####[facility] Mizeinqkza7555[address] [place], [place] [address]Dr. Abiel Clement Glucose Ql (U) Negative Normal NEGATIVE The [facility] Comment on above: Performed By: #### CARLOS ACERO ####[facility] Eucsxewcaz3998[address] [place], [place] [address]Dr. Abiel Clement Hemoglobin Ql (U) SMALL Abnormal NEGATIVE The [facility] Comment on above: Performed By: #### CARLOS ACERO ####[facility] Nqadtiiyij3840 [place] [address]Dr. Abiel Clement Ketones Ql (U) Negative Normal NEGATIVE The [facility] Comment on above: Performed By: #### NESSA ACE ####[facility] Lfeshywfbo0948 [place] [address]Dr. Abiel Clement LEUKOCYTES LARGE Abnormal NEGATIVE [facility] Comment on above: Performed By: #### NESSA ACE ####[facility] Lgsfnhptkv47[address] [place], [place] [address]Dr. Abiel Clement Nitrite Ql (U) Negative Normal NEGATIVE [facility] Comment on above: Performed By: #### NESSA ACE ####[facility] Zzihxjnnoj33[address] [place], [place] [address]Dr. Abiel Clement pH (U) 5.0 [pH] Normal 5-9 [facility] Comment on above: Performed By: #### NESSA ACE ####[facility] Etdmyrzsic[address] [place], [place] [address]Dr. Abiel Clement SPEC GRAVITY 1.020 Normal 1.005-<=1.02 5 [facility] Comment on above: Performed By: #### NESSA ACE ####[facility] Qvdcaaldaq35[address] [place], [place] [address]Dr. Abiel Clement UA PROTEIN Negative Normal NEGATIVE/ TRACE [facility] Comment on above: Performed By: #### NESSA ACE ####[facility] Wngrecliul9859[address] [place], [place] [address]DrKasia Clement UR MICRO IND INDICATED Normal [facility] Comment on above: Performed By: #### NESSA ACE ####[facility] Fcaojvqyjw40[address] [place], [place] [address]Dr. Abiel Clement Urobilinogen Qn (U) 0.2 {Keegan'U}/dL Normal 0.2 - 1. 0 [facility] Comment on above: Performed By: #### NESSA ACE ####[facility] Nilteqsbna0428[address] [place], [place] [address]Dr. Abiel Clement ETHANOL (BLD ALC)on 08-04-20 22 ALC NOTE NOTE: 80 mg/dl is th e legal limit for a blood alcohol level Normal [facility] Comment on above: Performed By: #### E TH ####[facility] Jqsaumuotd504[address] [place], [place] [address]Dr. Abiel Clement Ethanol [Mass/Vol] mg/dL Normal [facility] Comment on above: Performed By: #### E TH ####[facility] Ympaxuxake4[address] [place], [place] [address]Dr. Abiel Clement INFLUENZA A AND B AGon 08-04 INFLUANEGH SEE BELOW Normal [facility] Comment on above: Result Comment: Nega tive for Flu A protein angiten. Infection due to Flu A cannot be ruled out. Flu A angiten in the sample may be below the detection limit of the test. Performed By: #### I NFLUAB ####[facility] Etymmjhloy8[address] [place], [place] [address]Dr. Abiel Clement INFLUBNEGH SEE BELOW Normal [facility] Comment on above: Result Comment: Nega tive for Flu B protein antigen. Infection due to Flu B cannot be ruled out. Flu B antigen in the sample may be below the detection limit of the test. Performed By: #### I NFLUAB ####[facility] Xzjifzspms[address] [place], [place] [address]Dr. Abiel Clement INFLUENZA A AG Negative Normal NEGATIVE SEE COMMENT [facility] Comment on above: Performed By: #### I NFLUAB ####[facility] Veujwtcxlc7224[address] [place], [place] [address]Dr. Abiel Urbano INFLUENZA B AG Negative Normal NEGATIVE SEE COMMENT [facility] Comment on above: Performed By: #### I NFLUAB ####[facility] Rvnqrvzsfx6[address] [place], [place] [address]Dr. Suyapaviviana Clement INTERNAL CONTROLS Within Normal Limits Normal Wi thin Normal Limits [facility] Comment on above: Performed By: #### I NFLUAB ####[facility] Kgztvzvgcv17[address] [place], [place] [address]Dr. Abiel Clement LACTATE/LACTIC ACIDon 2021 Lactate [Moles/Vol] 2.0 mmol/L Critically high 0.4-1.9 [facility] Comment on above: Performed By: #### L ACT ####[facility] Argjtttyiq[address] [place] [address]Dr. Suyapaviviana Urbano LIPASEon 08-04-2022 Lipase [Catalytic activity/Vol] 28.0 U/L Critically low 73.0-393.0 [facility] Comment on above: Performed By: #### L IPA, CMP, HSTROPN, TSH ####[facility] Whufdflnwb[address] [place] [address]Dr. Abiel Clement PH VENOUS BLOODon 08-04-2022 PCO2 VENOUS 30.0 mmHg Critically low 40.0-52.0 [facility] Comment on above: Performed By: #### P HVEN ####[facility] Gcrwegjnnn4[address] [place] [address]Dr. Abiel Clement pH VENOUS 7.509 Critically high 7.330-7.430 [facility] Comment on above: Performed By: #### P HVEN ####[facility] Rlpvevgzhu0756 [place] [address]Dr. Abiel Clement POINT OF CARE GLUCOSEon 07-08 Glucose [Mass/Vol] 230 mg/dL Critically high 74-106 [facility] Comment on above: Performed By: #### P OCGLUC ####[facility] Euimzdahco4[address] [place] [address]Dr. Abeil Clement PROF 14(COMP METB)on 022 Albumin [Mass/Vol] 3.0 g/dL Critically low 3.4-5.0 [facility] Comment on above: Performed By: #### L IPA, CMP, HSTROPN, TSH ####[facility] Uainsgwetw9407 [place] [address]Dr. Abiel Clement Albumin/Globulin [Mass ratio] 0.7 {ratio} Normal [facility] Comment on above: Performed By: #### L IPA, CMP, HSTROPN, TSH ####[facility] Miefeqtvep56[address] [place] [address]Dr. Abiel Clement ALP [Catalytic activity/Vol] 196 U/L Critically high 46-116 [facility] Comment on above: Performed By: #### L IPA, CMP, HSTROPN, TSH ####[facility] Bxqkprqndp6874 [place] [address]Dr. Abiel Clement ALT [Catalytic activity/Vol] 21 U/L Normal 14-59 [facility] Comment on above: Performed By: #### L IPA, CMP, HSTROPN, TSH ####[facility] Ubegfntnul3778 [place] [address]Dr. Abiel Clement Anion gap [Moles/Vol] 12.1 mmol/L Normal [facility] Comment on above: Performed By: #### L IPA, CMP, HSTROPN, TSH ####[facility] Vqxywcqiwy[address] [place], [place] [address]Dr. Abiel Clement AST [Catalytic activity/Vol] 29 U/L Normal 15-37 [facility] Comment on above: Performed By: #### L IPA, CMP, HSTROPN, TSH ####[facility] Ffjrsqrpqq0185 [place] [address]Dr. Abiel Clement Bilirubin [Mass/Vol] 0.3 mg/dL Normal 0.2-1.0 [facility] Comment on above: Performed By: #### L IPA, CMP, HSTROPN, TSH ####[facility] Vguntubyvt[address] [place], [place] [address]Dr. Abiel Clement Calcium [Mass/Vol] 8.9 mg/dL Normal 8.5-10.1 [facility] Comment on above: Performed By: #### L IPA, CMP, HSTROPN, TSH ####[facility] Yeobqtywpn[address] [place], [place] [address]Dr. Abiel Clement Chloride [Moles/Vol] 102 mmol/L Normal 98-107 [facility] Comment on above: Performed By: #### L IPA, CMP, HSTROPN, TSH ####[facility] Xjeuaalins3658 [place] [address]Dr. Abiel Clement CO2 [Moles/Vol] 27.1 mmol/L Normal 21.0-32.0 [facility] Comment on above: Performed By: #### L IPA, CMP, HSTROPN, TSH ####[facility] Jwqrrcsfbr2351 [place] [address]Dr. Abiel Clement Creatinine [Mass/Vol] 0.83 mg/dL Normal 0.55-1.02 [facility] Comment on above: Performed By: #### L IPA, CMP, HSTROPN, TSH ####[facility] Kvwqtrocri3730 [place] [address]Dr. Abiel Clement EGFR-AF DANISH >60 Normal >=60 [facility] Comment on above: Performed By: #### L IPA, CMP, HSTROPN, TSH ####[facility] Eezfhqjtww3733 [place] [address]Dr. Abiel Clement EGFR-NON AF DANISH >60 Normal >=60 [facility] Comment on above: Performed By: #### L IPA, CMP, HSTROPN, TSH ####[facility] Gatccsqgam8789 [place] [address]Dr. Abiel Clement Globulin (S) [Mass/Vol] 4.2 g/dL Normal [facility] Comment on above: Performed By: #### L IPA, CMP, HSTROPN, TSH ####[facility] Dekgttydab4514 [place] [address]Dr. Abiel Clement Glucose [Mass/Vol] 132 mg/dL Critically high 74-106 [facility] Comment on above: Performed By: #### L IPA, CMP, HSTROPN, TSH ####[facility] Frxtgribku5118 [place] [address]Dr. Abiel Clement Potassium [Moles/Vol] 4.2 mmol/L Normal 3.5-5.1 [facility] Comment on above: Performed By: #### L IPA, CMP, HSTROPN, TSH ####[facility] Gsgfpcbgfr8984 [place] [address]Dr. Abiel Clement Protein [Mass/Vol] 7.2 g/dL Normal 6.4-8.2 [facility] Comment on above: Performed By: #### L IPA, CMP, HSTROPN, TSH ####[facility] Rbjqriuhkm3732 [place] [address]Dr. Abiel Clement Sodium [Moles/Vol] 137 mmol/L Normal 136-145 [facility] Comment on above: Performed By: #### L IPA, CMP, HSTROPN, TSH ####[facility] Qgneolzpby7[address] [place], [place] [address]Dr. Abiel Clement Urea nitrogen [Mass/Vol] 18.0 mg/dL Normal 7.0-18.0 [facility] Comment on above: Performed By: #### L IPA, CMP, HSTROPN, TSH ####[facility] Iizuqtufmt0[address] [place], [place] [address]Dr. Abiel Clement Urea nitrogen/Creatinine [Mass ratio] 21.7 mg/mg Normal [facility] Comment on above: Performed By: #### L IPA, CMP, HSTROPN, TSH ####[facility] Calkzpbmfd[address] [place], [place] [address]Dr. Abiel Clement PROTIMEon 08-04-2022 INR Coag (PPP) [Relative time] 1.05 {INR} Normal [facility] Comment on above: Performed By: #### P TT, PT ####[facility] Wexjouycmd6[address] [place], [place] [address]Dr. Abiel Clement INR GUIDELINES SEE BELOW Normal [facility] Comment on above: Result Comment: GELY RED INR: 2.0 - 3.0 CONDITIONS NOT LISTED BELOW 2.5 - 3.5 FOR PROSTHETIC HEART VALVE REPLACEMENT 2.5 - 3.5 RECURRENT THROMBOSIS Performed By: #### P TT, PT ####[facility] Vvxrqommfs[address] [place], [place] [address]Dr. Abiel Clement PT Coag (PPP) [Time] 11.3 s Normal 9.0-11.6 [facility] Comment on above: Performed By: #### P TT, PT ####[facility] Yqjtcuunyw711[address] [place], [place] [address]Dr. Abiel Clement PTTon 08-04-2022 aPTT Coag (Bld) [Time] 25.2 s Normal 22.3-36.2 [facility] Comment on above: Performed By: #### P TT, PT ####[facility] Anatgxakzd60[address] [place] [address]Dr. Abiel Clement TROPONIN, HIGH SENSITIVITYon 08-04-2022 HSTROP 5.0 pg/mL Normal 4.0-51.3 [facility] Comment on above: Result Comment: CUT- OFF POINTS HAVE BEEN ESTABLISHED BASED ON THE FOURTH UNIVERSAL DEFINITIONS OF MYOCARDIALINFARCTION. THE UPPER REFERENCE LIMIT (URL) OF TROPONIN, DEFINED THE 99TH PERCENTILE OFcTnI DISTRIBUTION IN A REFERENCE POPULATION, HAS BEEN CONFIRMED THE DECISION THRESHOLDFOR KS DIAGNOSIS. Performed By: #### L IPA, CMP, HSTROPN, TSH ####[facility] Wlbcepygcw8110 [place] [address]Dr. Abiel Clement TSHon 08-04-2022 TSH 1.695 uIU/mL Normal 0.358-3.740 [facility] Comment on above: Performed By: #### L IPA, CMP, HSTROPN, TSH ####[facility] [address]znyxgau[address] [place] [address]Dr. Abiel Clement URINE MICROSCOPIC ONLYon BACTERIA MODERATE Abnormal NONE SEEN [facility] Comment on above: Performed By: #### Krystle GERMAN UMICRO ####[facility] Dqpxlxtztf4772 [place] [address]Dr. Abiel Clement Bacteria identified Cx Nom (U) INDICATED Normal [facility] Comment on above: Performed By: #### Krystle GERMAN UMICRO ####[facility] Yhycrkojrx0366 [place] [address]Dr. Abiel Clement CAST NONE SEEN Normal NONE SEEN [facility] Comment on above: Performed By: #### Krystle GERMAN UMICRO ####[facility] Mswehfjsvb5[address] [place], [place] [address]Dr. Abiel Clement Crystals LM Nom (Urine sed) NONE SEEN Normal NONE SEEN [facility] Comment on above: Performed By: #### NESSA ACE ####[facility] Sxrvirnpro2580 [place] [address]Dr. Abiel Clement Epithelial cells LM Ql (Urine sed) FEW Abnormal NONE SEEN /RARE [facility] Comment on above: Performed By: #### NESSA CAE ####[facility] Zfctkkluml[address] [place], [place] [address]Dr. Abiel Clement MUCOUS NONE SEEN Normal NONE SEEN [facility] Comment on above: Performed By: #### CARLOS ACERO ####[facility] Vlilmvixep[address] [place], [place] [address]Dr. Abiel Clement RBC 2-5 Abnormal 0-2 [facility] Comment on above: Performed By: #### NESSA ACE ####[facility] Dqsjfrcuny2399[address] [place], [place] [address]Dr. Abiel Clement WBC 10-20 Abnormal NONE SEEN [facility] Comment on above: Performed By: #### NESSA ACE ####[facility] Xxgqabnplw[address] [place], [place] [address]Dr. Abiel Clement XR CHEST 1 Von 08-04-2022 XR CHEST 1 V Normal [facility] XR FOOT RT MIN 3 VIEWSon XR FOOT RT MIN 3 VIEWS Normal [facility] CBC AUTO DIFFon 06-03-2022 BASO # 0.0 103/ul Normal 0.0-0.1 [facility] Comment on above: Performed By: #### C BC ####[facility] Cdlvonjvqj[address] [place], [place] [address]Dr. Abiel Clement Basophils/100 WBC (Bld) 0.5 % Normal 0.2-2.0 [facility] Comment on above: Performed By: #### C BC ####[facility] Kfbdjwevcq6[address] [place], [place] [address]Dr. Abiel Clement EO # 0.3 103/ul Normal 0.0-0.7 [facility] Comment on above: Performed By: #### C BC ####[facility] Yhhsknfejk[address] [place], [place] [address]Dr. Abiel Clement Eosinophils/100 WBC (Bld) 3.5 % Normal 0.9-7.0 [facility] Comment on above: Performed By: #### C BC ####[facility] Wabugnxdom8699 [place] [address]Dr. Abiel Clement Erythrocyte distribution width (RBC) [Ratio] 13.7 % Normal 11.0-15.0 [facility] Comment on above: Performed By: #### C BC ####[facility] Zwgswcqudq7254 [place] [address]Dr. Abiel Clement Hematocrit (Bld) [Volume fraction] 34.2 % Critically low 36.0-48.0 [facility] Comment on above: Performed By: #### C BC ####[facility] Zjmougnfvj8141 [place] [address]Dr. Abiel Clement Hemoglobin (Bld) [Mass/Vol] 10.5 g/dL Critically low 12.0-16.0 [facility] Comment on above: Performed By: #### C BC ####[facility] Ziphuxgodf4221 [place] [address]Dr. Abiel Clement IG # 0.02 10e3/ul Normal 0.00-0.03 [facility] Comment on above: Performed By: #### C BC ####[facility] Pfwoulymwe3534 [place] [address]Dr. Abiel Clement IG % 0.3 % Normal 0.0-0.5 [facility] Comment on above: Performed By: #### C BC ####[facility] Qyvbecjkqi7628 [place] [address]Dr. Abiel Clement LYMPH # 1.4 103/ul Normal 1.2-3.8 [facility] Comment on above: Performed By: #### C BC ####[facility] Cdnwyjfeex4149 [place] [address]Dr. Abiel Clement Lymphocytes/100 WBC (Bld) 18.5 % Critically low 20.5-60.0 [facility] Comment on above: Performed By: #### C BC ####[facility] Uxfsoknesv2047 [place] [id number]. Abiel Clement MANUAL DIFF REQ NO Normal [facility] Comment on above: Performed By: #### C BC ####[facility] Rfszydnmkn6378 [place] [id number]. Abiel Clement MCH (RBC) [Entitic mass] 27.8 pg Normal 26.7-34.0 [facility] Comment on above: Performed By: #### C BC ####[facility] Ubdcgfizwl5798 [place] [address]Dr. Abiel Urbano MCHC (RBC) [Mass/Vol] 30.7 g/dL Normal 29.9-35.2 [facility] Comment on above: Performed By: #### C BC ####[facility] Zxqetoeijj7768 [place] [address]Dr. Abiel Urbano MCV (RBC) [Entitic vol] 90.5 fL Normal 81.0-99.0 [facility] Comment on above: Performed By: #### C BC ####[facility] Hwepubynof9806 [place] [address]Dr. Abiel Urbano MONO # 0.7 103/ul Normal 0.3-0.8 [facility] Comment on above: Performed By: #### C BC ####[facility] Xkvbvjhjrs6175 [place] [address]Dr. Syuapaviviana Clement Monocytes/100 WBC (Bld) 8.5 % Normal 1.7-12.0 [facility] Comment on above: Performed By: #### C BC ####[facility] Kidjfemtaw1336 [place] [address]Dr. Abiel Urbano NEUT # 5.2 103/ul Normal 1.4-6.5 [facility] Comment on above: Performed By: #### C BC ####[facility] Smyouhnppr1810 [place] [address]Dr. Abiel Clement Neutrophils/100 WBC (Bld) 68.7 % Normal 43.0-75.0 [facility] Comment on above: Performed By: #### C BC ####[facility] Jneaavpmol0605 [place] [address]Dr. Abiel Clement Platelet mean volume (Bld) [Entitic vol] 11.0 fL Normal 9.5-13.5 [facility] Comment on above: Performed By: #### C BC ####[facility] Tkzckcomhb2731 [place] [id number]. Abiel Clement PLT 249 103/ul Normal 150-450 [facility] Comment on above: Performed By: #### C BC ####[facility] Xhyylabaqv2222 [place] [address]Dr. Abiel Clement RBC 3.78 106/ul Critically low 4.20-5.40 [facility] Comment on above: Performed By: #### C BC ####[facility] Gwdknjjwss2826 [place] [address]Dr. Abiel Clement WBC 7.6 103/ul Normal 4.0-11.0 [facility] Comment on above: Performed By: #### C BC ####[facility] Ylqgmvgcji6124 [place] [address]Dr. Abiel Clement POINT OF CARE GLUCOSEon 05-07 Glucose [Mass/Vol] 84 mg/dL Normal 74-106 [facility] Comment on above: Performed By: #### P OCGLUC ####[facility] Qsgcbphpci0846 [place] [address]Dr. Abiel Clement Glucose [Mass/Vol] 49 mg/dL Critically low 74-106 [facility] Comment on above: Result Comment: Will Repeat Test Performed By: #### P OCGLUC ####[facility] Lhkpxzlvbb5488 [place] [address]Dr. Abiel Clement Glucose [Mass/Vol] 182 mg/dL Critically high 74-106 [facility] Comment on above: Performed By: #### P OCGLUC ####[facility] Zqklurllwj7983 [place] [address]Dr. Abiel Clement PROF CHEM 8 (BAS METB)on Anion gap [Moles/Vol] 8.5 mmol/L Normal [facility] Comment on above: Performed By: #### B MP ####[facility] Qgqrunodna3433 [place] [address]Dr. Abiel Clement Calcium [Mass/Vol] 9.2 mg/dL Normal 8.5-10.1 [facility] Comment on above: Performed By: #### B MP ####[facility] Gvumakkaoh0985 [place] [address]Dr. Abiel Clement Chloride [Moles/Vol] 99 mmol/L Normal 98-107 [facility] Comment on above: Performed By: #### B MP ####[facility] Uvxoipozmu0489 [place] [address]Dr. Abiel Clement CO2 [Moles/Vol] 29.5 mmol/L Normal 21.0-32.0 [facility] Comment on above: Performed By: #### B MP ####[facility] Utulfmktla28[address] [place], [place] [address]Dr. Abiel Clement Creatinine [Mass/Vol] 0.97 mg/dL Normal 0.55-1.02 [facility] Comment on above: Performed By: #### B MP ####[facility] Pboxqosvhn8[address] [place], [place] [address]Dr. Abiel Clement EGFR-AF DANISH >60 Normal >=60 [facility] Comment on above: Performed By: #### B MP ####[facility] Uhxbzvwpui14[address] [place], [place] [address]Dr. Abiel Clement EGFR-NON AF DANISH 58 mL/min/1.73m2 Critically low >=60 [facility] Comment on above: Performed By: #### B MP ####[facility] Ddvbtruspu4465[address] [place], [place] [address]Dr. Abiel Clement Glucose [Mass/Vol] 193 mg/dL Critically high 74-106 [facility] Comment on above: Performed By: #### B MP ####[facility] Zgycfymvla3084[address] [place], [place] [address]Dr. Abiel Clement Potassium [Moles/Vol] 4.0 mmol/L Normal 3.5-5.1 [facility] Comment on above: Performed By: #### B MP ####[facility] Zpywpslkwt3858 [place] [phone]. Abiel Clement Sodium [Moles/Vol] 133 mmol/L Critically low 136-145 [facility] Comment on above: Performed By: #### B MP ####[facility] Atvysesuwp4776 [place] [phone]. Abiel Clement Urea nitrogen [Mass/Vol] 20.0 mg/dL Critically high 7.0-18.0 [facility] Comment on above: Performed By: #### B MP ####[facility] Vifcrxdlec8886 [place] [phone]. Abiel Clement Urea nitrogen/Creatinine [Mass ratio] 20.6 mg/mg Normal [facility] Comment on above: Performed By: #### B MP ####[facility] Cikolbwlkt4610 [place] [address]Dr. Abiel Clement POINT OF CARE GLUCOSEon 05-07 Glucose [Mass/Vol] 62 mg/dL Critically low 74-106 [facility] Comment on above: Performed By: #### P OCGLUC ####[facility] Irowdfvibl9412 [place] [address]Dr. Suyapalan Clement Glucose [Mass/Vol] 75 mg/dL Normal 74-106 [facility] Comment on above: Performed By: #### P OCGLUC ####[facility] Cbqdufudeo4522 [place] [address]Dr. Suyapalan Clement Glucose [Mass/Vol] 83 mg/dL Normal 74-106 [facility] Comment on above: Performed By: #### P OCGLUC ####[facility] Ijdvxnifte9390 [place] [address]Dr. Yilan Clement Glucose [Mass/Vol] 107 mg/dL Critically high 74-106 [facility] Comment on above: Performed By: #### P OCGLUC ####[facility] Saxjzymrgg[address] [place], [place] [address]Dr. Yilan Clement Glucose [Mass/Vol] 140 mg/dL Critically high 74-106 [facility] Comment on above: Performed By: #### P OCGLUC ####[facility] Andbkwydgl1609 [place] [phone]. Abiel Clement CBC AUTO DIFFon 06-01-2022 BASO # 0.0 103/ul Normal 0.0-0.1 [facility] Comment on above: Performed By: #### C BC ####[facility] Fakassmtmh9251 [place] [phone]. Suyapaviviana Clement Basophils/100 WBC (Bld) 0.3 % Normal 0.2-2.0 [facility] Comment on above: Performed By: #### C BC ####[facility] Bhopalyvrx1305 [place] [address]Dr. Suyapaviviana Clement EO # 0.2 103/ul Normal 0.0-0.7 [facility] Comment on above: Performed By: #### C BC ####[facility] Wbghikwwgl06[address] [place], [place] [address]Dr. Suyapaviviana Clement Eosinophils/100 WBC (Bld) 1.9 % Normal 0.9-7.0 [facility] Comment on above: Performed By: #### C BC ####[facility] Jzydudhclv[address] [place], [place] [address]Dr. Abiel Clement Erythrocyte distribution width (RBC) [Ratio] 13.8 % Normal 11.0-15.0 [facility] Comment on above: Performed By: #### C BC ####[facility] Flaxmayhip[address] [place], [place] [address]Dr. Abiel Clement Hematocrit (Bld) [Volume fraction] 37.7 % Normal 36.0-48.0 [facility] Comment on above: Performed By: #### C BC ####[facility] Zklyesuuyt[address] [place], [place] [address]Dr. Abiel Clement Hemoglobin (Bld) [Mass/Vol] 11.7 g/dL Critically low 12.0-16.0 [facility] Comment on above: Performed By: #### C BC ####[facility] Zhmjwworxc01[address] [place], [place] [address]Dr. Abiel Clement IG # 0.03 10e3/ul Normal 0.00-0.03 [facility] Comment on above: Performed By: #### C BC ####[facility] Ylfpazbina9065 [place] [phone]. Abiel Clement IG % 0.3 % Normal 0.0-0.5 [facility] Comment on above: Performed By: #### C BC ####[facility] Igtxdwrsqj3954 [place] [phone]. Abiel Clement LYMPH # 1.1 103/ul Critically low 1.2-3.8 [facility] Comment on above: Performed By: #### C BC ####[facility] Plgwgwxprt8981 [place] [phone]. Abiel Clement Lymphocytes/100 WBC (Bld) 12.0 % Critically low 20.5-60.0 [facility] Comment on above: Performed By: #### C BC ####[facility] Mxctbpkzhn0594 [place] [address]Dr. Abiel Clemnet MANUAL DIFF REQ NO Normal [facility] Comment on above: Performed By: #### C BC ####[facility] Phbfmftohz5556 [place] [phone]. Abiel Clement MCH (RBC) [Entitic mass] 27.9 pg Normal 26.7-34.0 [facility] Comment on above: Performed By: #### C BC ####[facility] Yefnnpniah2360 [place] [phone]. Abiel Clement MCHC (RBC) [Mass/Vol] 31.0 g/dL Normal 29.9-35.2 [facility] Comment on above: Performed By: #### C BC ####[facility] Mrkrgtsixy2442 [place] [phone] Clement MCV (RBC) [Entitic vol] 89.8 fL Normal 81.0-99.0 [facility] Comment on above: Performed By: #### C BC ####[facility] Gvmnfjmvps6945 [place] [address]DrKasia Clement MONO # 0.7 103/ul Normal 0.3-0.8 [facility] Comment on above: Performed By: #### C BC ####[facility] Zdjdkkowny4045 [place] [phone]. Abiel Clement Monocytes/100 WBC (Bld) 8.0 % Normal 1.7-12.0 [facility] Comment on above: Performed By: #### C BC ####[facility] Gmjvykwuwp4[address] [place] [id number]. Abiel Clement NEUT # 6.9 103/ul Critically high 1.4-6.5 [facility] Comment on above: Performed By: #### C BC ####[facility] Kpuqmawccn3133 [place] [id number]. Abiel Clement Neutrophils/100 WBC (Bld) 77.5 % Critically high 43.0-75.0 [facility] Comment on above: Performed By: #### C BC ####[facility] Hngmolytpp6287 [place] [id number]. Abiel Clement Platelet mean volume (Bld) [Entitic vol] 11.1 fL Normal 9.5-13.5 [facility] Comment on above: Performed By: #### C BC ####[facility] Shimxfbcsr1371 [place] [phone]. Abiel Clement PLT 276 103/ul Normal 150-450 [facility] Comment on above: Performed By: #### C BC ####[facility] Gxpgbvjbek0580 [place] [phone]. Abiel Clement RBC 4.20 106/ul Normal 4.20-5.40 [facility] Comment on above: Performed By: #### C BC ####[facility] Ceuohgqttz5[address] [place] [phone]. Abiel Clement WBC 8.9 103/ul Normal 4.0-11.0 [facility] Comment on above: Performed By: #### C BC ####[facility] Gdtcqzhddr2792 [place] [phone]. Abiel Clement POINT OF CARE GLUCOSEon 09-2 Glucose [Mass/Vol] 121 mg/dL Critically high 74-106 [facility] Comment on above: Performed By: #### P OCGLUC ####[facility] Xkrajjssrw[address] [place] [address]Dr. Abiel Clement Glucose [Mass/Vol] 303 mg/dL Critically high 74-106 [facility] Comment on above: Performed By: #### P OCGLUC ####[facility] Iotzatcqmd28[address] [place] [address]Dr. Abiel Clement PROF 14(COMP METB)on 022 Albumin [Mass/Vol] 2.8 g/dL Critically low 3.4-5.0 [facility] Comment on above: Performed By: #### C MP ####[facility] Hzhuvfcofh3[address] [place] [address]Dr. Abiel Clement Albumin/Globulin [Mass ratio] 0.7 {ratio} Normal [facility] Comment on above: Performed By: #### C MP ####[facility] Kenlhozrmt20[address] [place], [place] [address]Dr. Abiel Clement ALP [Catalytic activity/Vol] 174 U/L Critically high 46-116 [facility] Comment on above: Performed By: #### C MP ####[facility] Bzrxthrqts5[address] [place], [place] [address]Dr. Abiel Clement ALT [Catalytic activity/Vol] 14 U/L Normal 14-59 [facility] Comment on above: Performed By: #### C MP ####[facility] Qrydizhuqe9847 [place] [address]Dr. Abiel Clement Anion gap [Moles/Vol] 14.2 mmol/L Normal [facility] Comment on above: Performed By: #### C MP ####[facility] Yxwmfmdecz5864 [place] [address]Dr. Abiel Clement AST [Catalytic activity/Vol] 13 U/L Critically low 15-37 [facility] Comment on above: Performed By: #### C MP ####[facility] Xpbagcbvxt[address] [place], [place] [address]Dr. Abiel Clement Bilirubin [Mass/Vol] 0.1 mg/dL Critically low 0.2-1.0 [facility] Comment on above: Performed By: #### C MP ####[facility] Pbxisgfdzo9274 [place] [phone]. Abiel Clement Calcium [Mass/Vol] 8.9 mg/dL Normal 8.5-10.1 [facility] Comment on above: Performed By: #### C MP ####[facility] Wpxynhrhlu8559 [place] [phone]. Abiel Clement Chloride [Moles/Vol] 99 mmol/L Normal 98-107 [facility] Comment on above: Performed By: #### C MP ####[facility] Jczgaesmgk7699 [place] [phone]. Abiel Clement CO2 [Moles/Vol] 27.1 mmol/L Normal 21.0-32.0 [facility] Comment on above: Performed By: #### C MP ####[facility] Rtfulodfjt4[address] [place], [place] [address]Dr. Abiel Urbano Creatinine [Mass/Vol] 1.19 mg/dL Critically high 0.55-1.02 [facility] Comment on above: Performed By: #### C MP ####[facility] Ziriefslhh23[address] [place], [place] [address]Dr. Abiel Urbano EGFR-AF DANISH 56 mL/min/1.73m2 Critically low >=60 [facility] Comment on above: Performed By: #### C MP ####[facility] Ejcpeavqdo0252 [place] [address]Dr. Suyapaviviana Urbano EGFR-NON AF DANISH 46 mL/min/1.73m2 Critically low >=60 [facility] Comment on above: Performed By: #### C MP ####[facility] Ejpwfojcyu463[address] [place], [place] [address]Dr. Abiel Clement Globulin (S) [Mass/Vol] 4.0 g/dL Normal [facility] Comment on above: Performed By: #### C MP ####[facility] Dbulfjaeqk7252 [place] [phone]. Abiel Clement Glucose [Mass/Vol] 148 mg/dL Critically high 74-106 [facility] Comment on above: Performed By: #### C MP ####[facility] Wmmvohnxbk2968 [place] [address]Dr. Abiel Clement Potassium [Moles/Vol] 4.3 mmol/L Normal 3.5-5.1 [facility] Comment on above: Performed By: #### C MP ####[facility] Xnqbiqowvx3681 [place] [address]Dr. Abiel Clement Protein [Mass/Vol] 6.8 g/dL Normal 6.4-8.2 [facility] Comment on above: Performed By: #### C MP ####[facility] Dfbqfzzvpg902[address] [place], [place] [address]Dr. Abiel Clement Sodium [Moles/Vol] 136 mmol/L Normal 136-145 [facility] Comment on above: Performed By: #### C MP ####[facility] Kfsjnmsqgr537[address] [place], [place] [address]Dr. Abiel Clement Urea nitrogen [Mass/Vol] 25.0 mg/dL Critically high 7.0-18.0 [facility] Comment on above: Performed By: #### C MP ####[facility] Twytmpsmqy0649[address] [place], [place] [address]Dr. Abiel Clement Urea nitrogen/Creatinine [Mass ratio] 21.0 mg/mg Normal [facility] Comment on above: Performed By: #### C MP ####[facility] Jxaewuqcrf39[address] [place], [place] [address]Dr. Abiel Clement XR CHEST 1 Von 06-01-2022 XR CHEST 1 V Normal [facility] POINT OF CARE GLUCOSEon 05-07 Glucose [Mass/Vol] 195 mg/dL Critically high 74-106 [facility] Comment on above: Performed By: #### P OCGLUC ####[facility] Omibarpfco[address] [place], [place] [address]Dr. Abiel Clement Glucose [Mass/Vol] 236 mg/dL Critically high 74-106 [facility] Comment on above: Performed By: #### P OCGLUC ####[facility] Rpadqqgnqh8781 [place] [phone]. Abiel Clement Glucose [Mass/Vol] 169 mg/dL Critically high 74-106 [facility] Comment on above: Performed By: #### P OCGLUC ####[facility] Xznnhaghgi7575 [place] [phone]. Abiel Clement Glucose [Mass/Vol] 162 mg/dL Critically high 74-106 [facility] Comment on above: Performed By: #### P OCGLUC ####[facility] Rozmvssims8198 [place] [phone]. Abiel Clement XR FOOT RT MIN 3 VIEWSon XR FOOT RT MIN 3 VIEWS Normal [facility] Covid-19 PCR (CVDTB)on 05-07 SARS-CoV-2 (COVID-19) RNA CLARIBEL+probe Ql (Unsp spec) Not detected Normal NOT DETECTED [facility] Comment on above: Result Comment: This test is not yet approved or cleared by the [place] FDA. When there are no FDA-approved or cleared tests available, and other criteria are met, FDA can make tests available under an emergency access mechanism called an Emergency Use Authorization (EUA). The EUA for this test is supported by the [place] of Health and Human Service's (HHS's) declaration [...] with SARS-CoV-2. Performed By: #### C VDTBH ####[facility] Wkimxfdror3280 [place] [address]Dr. Abiel Clement PROF CHEM 8 (BAS METB)on Anion gap [Moles/Vol] 11.8 mmol/L Normal [facility] Comment on above: Performed By: #### B MP ####[facility] Swxkbkkksz0053 [place] [address]Dr. Abiel Clement Calcium [Mass/Vol] 9.1 mg/dL Normal 8.5-10.1 [facility] Comment on above: Performed By: #### B MP ####[facility] Zwifgvdkzc9558 [place] [address]Dr. Abiel Clement Chloride [Moles/Vol] 104 mmol/L Normal 98-107 [facility] Comment on above: Performed By: #### B MP ####[facility] Epomizreup8098 [place] [address]Dr. Abiel Clement CO2 [Moles/Vol] 27.6 mmol/L Normal 21.0-32.0 [facility] Comment on above: Performed By: #### B MP ####[facility] Czvkvplqvl[address] [place], [place] [address]Dr. Abiel Clement Creatinine [Mass/Vol] 0.89 mg/dL Normal 0.55-1.02 [facility] Comment on above: Performed By: #### B MP ####[facility] Fhpwhydioo39[address] [place], [place] [address]Dr. Abiel Clement EGFR-AF DANISH >60 Normal >=60 [facility] Comment on above: Performed By: #### B MP ####[facility] Kufdpxchyb4[address] [place], [place] [address]Dr. Abiel Clement EGFR-NON AF DANISH >60 Normal >=60 [facility] Comment on above: Performed By: #### B MP ####[facility] Nglequlgww100[address] [place], [place] [address]Dr. Abiel Clement Glucose [Mass/Vol] 83 mg/dL Normal 74-106 [facility] Comment on above: Performed By: #### B MP ####[facility] Kqtivooqhe[address] [place], [place] [address]Dr. Abiel Clement Potassium [Moles/Vol] 4.4 mmol/L Normal 3.5-5.1 [facility] Comment on above: Performed By: #### B MP ####[facility] Vjhgypgeqi8164 [place] [phone]. Abiel Clement Sodium [Moles/Vol] 139 mmol/L Normal 136-145 [facility] Comment on above: Performed By: #### B MP ####[facility] Ftmdyabhiu7979 [place], [place] [address]Bu. Abiel Clement Urea nitrogen [Mass/Vol] 18.0 mg/dL Normal 7.0-18.0 [facility] Comment on above: Performed By: #### B MP ####[facility] Xubkwwcwhq7636 [place] [phone]. Abiel Clement Urea nitrogen/Creatinine [Mass ratio] 20.2 mg/mg Normal [facility] Comment on above: Performed By: #### B MP ####[facility] Ncxwduglhj8923 [place] [phone]. Abiel Clement CT CSPINE WO CONon CT CSPINE WO CON Normal [facility] CT HEAD WO CONon 05-19-2022 CT HEAD WO CON Normal [facility] XR HIP RT 2 3V W PELVISon XR HIP RT 2 3V W PELVIS Normal [facility] CT FOOT RT WO CONon 05-13-20 CT FOOT RT WO CON Normal The [facility] BLOOD CULTURE ID PANELon A. baumannii Not detected Normal NOT DETECTED [facility] Comment on above: Performed By: #### B CID2 ####[facility] Xptivkumvd2348 [place] [phone]. Abiel Clement Bacteriodes fragilis Not detected Normal NOT DETECTED [facility] Comment on above: Performed By: #### B CID2 ####[facility] Fgvjthnqlv6661 [place] [phone]. Abiel Clement BCID CONTROLS PASSED Normal [facility] Comment on above: Performed By: #### B CID2 ####[facility] Rruabvpesr7773 [place] [phone]. Abiel Clement BCIDBTHD BLOOD CULTURE BOTTLE INFORMATION Normal [facility] Comment on above: Performed By: #### B CID2 ####[facility] Atpalgghqv1468 [place] [address]Dr. Yiviviana Clement BCIDHD1 ANTIMICROBIAL RESISTANCE GENES Normal [facility] Comment on above: Performed By: #### B CID2 ####[facility] Ndzbgusrtc5508 [place] [address]Dr. Yiviviana Clement BCIDHD2 SEE BELOW Normal [facility] Comment on above: Result Comment: Note : Antimicrobial resitance can occur via multiple mechanisms. A Not Detected result for the [employer] antomicrobial resistance gene assays does not indicate antimicrobial susceptibility. Subculturing is required for species identification and susceptibility testing of isolates. Performed By: #### B CID2 ####[facility] Qwvgvyihlu[address] [place], [place] [address]Dr. Abiel Clement BCIDHD3 Positive Normal [facility] Comment on above: Performed By: #### B CID2 ####[facility] Zjsjgbxbvl39[address] [place], [place] [address]Dr. Yiviviana Clement BCIDHD4 Negative Normal [facility] Comment on above: Performed By: #### B CID2 ####[facility] Byfdmpboem85[address] [place], [place] [address]Dr. Yiviviana Clement BCIDHD5 YEAST Normal [facility] Comment on above: Performed By: #### B CID2 ####[facility] Ufiqfsxyyv9825[address] [place], [place] [address]Dr. Yiviviana Clement Bottle Set: Set 1 Normal [facility] Comment on above: Performed By: #### B CID2 ####[facility] Aoxcxusdsx068[address] [place], [place] [address]Dr. Yilan Clement Bottle: Aerobic Normal [facility] Comment on above: Performed By: #### B CID2 ####[facility] Fhxerdpdyu89[address] [place], [place] [address]Dr. Yiviviana Clement C. neoformans/gattii Not detected Normal NOT DETECTED [facility] Comment on above: Performed By: #### B CID2 ####[facility] Bqtnzdzfxo3747[address] [place], [place] [address]Dr. Yiviviana Clement Sakshi albicans Not detected Normal NOT DETECTED [facility] Comment on above: Performed By: #### B CID2 ####[facility] Hzggoerczb9833 [place] [address]Dr. Yiviviana Clement Sakshi auris Not detected Normal NOT DETECTED The [facility] Comment on above: Performed By: #### B CID2 ####[facility] Tkqhgxvblt7033 [place] [address]Dr. Yilan Clement Sakshi glabrata Not detected Normal NOT DETECTED [facility] Comment on above: Performed By: #### B CID2 ####[facility] Kwaylkyvvh8962 [place] [address]Dr. Yiviviana Clement Sakshi Krusei Not detected Normal NOT DETECTED [facility] Comment on above: Performed By: #### B CID2 ####[facility] Fqafpcbqcj14[address] [place], [place] [address]Dr. Abiel Clement Sakshi Parapsilosis Not detected Normal NOT DETECTED [facility] Comment on above: Performed By: #### B CID2 ####[facility] Bwhqdrcjro0618[address] [place], [place] [address]Dr. Yiviviana Clement Sakshi Tropicalis Not detected Normal NOT DETECTED [facility] Comment on above: Performed By: #### B CID2 ####[facility] Gwktgvfngc4415[address] [place], [place] [address]Dr. Abiel Clement CTX-M Resistant Gene Not Applicable Normal NOT DETECTE D [facility] Comment on above: Performed By: #### B CID2 ####[facility] Spnaqyfohr208[address] [place], [place] [address]Dr. Yiviviana Clement E. Cloacae complex Not detected Normal NOT DETECTED [facility] Comment on above: Performed By: #### B CID2 ####[facility] Hjmrynjwsa0448[address] [place], [place] [address]Dr. Yilan Clement E. faecalis Not detected Normal NOT DETECTED [facility] Comment on above: Performed By: #### B CID2 ####[facility] Fdauinrbql6106[address] [place], [place] [address]Dr. Yiviviana Clement E. faecium Not detected Normal NOT DETECTED [facility] Comment on above: Performed By: #### B CID2 ####[facility] Ctphnnpxub5009[address] [place], [place] [address]Dr. Abiel Clement Enterobacteriaceae Not detected Normal NOT DETECTED [facility] Comment on above: Performed By: #### B CID2 ####[facility] Zbatsyeevj89[address] [place], [place] [address]Dr. Abiel Clement Escherichia coli Not detected Normal NOT DETECTED [facility] Comment on above: Performed By: #### B CID2 ####[facility] Yfewyfobcf6100[address] [place], [place] [address]Dr. Abiel Clement H. influenzae Not detected Normal NOT DETECTED The [facility] Comment on above: Performed By: #### B CID2 ####[facility] Gpgokybpwc9616[address] [place], [place] [address]Dr. Abiel Clement IMP Resistant Gene Not Applicable Normal NOT DETECTED [facility] Comment on above: Performed By: #### B CID2 ####[facility] Kkqxrhaizz5050[address] [place], [place] [address]Dr. Abiel Clement K. oxytoca Not detected Normal NOT DETECTED [facility] Comment on above: Performed By: #### B CID2 ####[facility] Gwknpnfdwe1404[address] [place], [place] [address]Dr. Abiel Clement K. pneumoniae Not detected Normal NOT DETECTED The [facility] Comment on above: Performed By: #### B CID2 ####[facility] Vrqvbutegm6348[address] [place], [place] [address]Dr. Abiel Clement Klebsiella aerogenes Not detected Normal NOT DETECTED [facility] Comment on above: Performed By: #### B CID2 ####[facility] Nzpxtnyqcy2699[address] [place], [place] [address]Dr. Abiel Clement KPC Resistant Gene Not detected Normal NOT DETECTED [facility] Comment on above: Performed By: #### B CID2 ####[facility] Ujtjhlxmkj3022[address] [place], [place] [address]Dr. Abiel Clement List. monocytogenes Not detected Normal NOT DETECTED [facility] Comment on above: Performed By: #### B CID2 ####[facility] Exiebxmgxo947[address] [place], [place] [address]Dr. Abiel Clement Mcr-1 Resistant Gene Not Applicable Normal NOT DETECTE D [facility] Comment on above: Performed By: #### B CID2 ####[facility] Zwikuneqln6413[address] [place], [place] [address]Dr. Abiel Urbano mecA/C Not Applicable Normal NOT DETECTED [facility] Comment on above: Performed By: #### B CID2 ####[facility] Gxlyygdazm559[address] [place], [place] [address]Dr. Abiel Clement mecA/C MREJ Not Applicable Normal NOT DETECTED The [facility] Comment on above: Performed By: #### B CID2 ####[facility] Ayddwkglsu155[address] [place], [place] [address]Dr. Abiel Clement N. meningitidis Not detected Normal NOT DETECTED [facility] Comment on above: Performed By: #### B CID2 ####[facility] Hxdpmifswx175[address] [place], [place] [address]Dr. Abiel Clement NDM Resistant Gene Not Applicable Normal NOT DETECTED [facility] Comment on above: Performed By: #### B CID2 ####[facility] Jrrorkzurd214[address] [place], [place] [address]Dr. Abiel Clement Oxa-48-like Not Applicable Normal NOT DETECTED The [facility] Comment on above: Performed By: #### B CID2 ####[facility] Hymwtvkhii9010[address] [place], [place] [address]Dr. Abiel Clement Proteus Not detected Normal NOT DETECTED [facility] Comment on above: Performed By: #### B CID2 ####[facility] Pnjnquuzaw1918[address] [place], [place] [address]Dr. Abiel Clement Pseud. aeruginosa Not detected Normal NOT DETECTED [facility] Comment on above: Performed By: #### B CID2 ####[facility] Wdqzbrgigq7166[address] [place], [place] [address]Dr. Abiel Clement S. maltophilia Not detected Normal NOT DETECTED [facility] Comment on above: Performed By: #### B CID2 ####[facility] Jqieleysok5347[address] [place], [place] [address]Dr. Abiel Clement Salmonella Not detected Normal NOT DETECTED [facility] Comment on above: Performed By: #### B CID2 ####[facility] Xqepzqtdnn6549 [place] [address]Dr. Abiel Clement Seratia marcescens Not detected Normal NOT DETECTED [facility] Comment on above: Performed By: #### B CID2 ####[facility] Lmwpjwagud[address] [place], [place] [address]Dr. Abiel Clement Site: R A/c Normal [facility] Comment on above: Performed By: #### B CID2 ####[facility] Mlfurlycnx037[address] [place], [place] [address]Dr. Abiel Clement Staph. aureus Not detected Normal NOT DETECTED The [facility] Comment on above: Performed By: #### B CID2 ####[facility] Kipzxgojrd7994[address] [place], [place] [address]Dr. Abiel Clement Staph. epidermidis Not detected Normal NOT DETECTED [facility] Comment on above: Performed By: #### B CID2 ####[facility] Fngtlcusqn200[address] [place], [place] [address]Dr. Abiel Clement Staph. lugdunensis Not detected Normal NOT DETECTED [facility] Comment on above: Performed By: #### B CID2 ####[facility] Lwzkivivcz3547[address] [place], [place] [address]Dr. Abiel Clement Staphylococcus Not detected Normal NOT DETECTED [facility] Comment on above: Performed By: #### B CID2 ####[facility] Grmiideazr045[address] [place], [place] [address]Dr. Abiel Clement Strep. agalactiae Not detected Normal NOT DETECTED [facility] Comment on above: Performed By: #### B CID2 ####[facility] Oyokhjnvgh700[address] [place], [place] [address]Dr. Suyapaviviana Clement Strep. pneumoniae Not detected Normal NOT DETECTED [facility] Comment on above: Performed By: #### B CID2 ####[facility] Jfeulxqoyi6[address] [place], [place] [address]Dr. Abiel Clement Strep. pyogenes Not detected Normal NOT DETECTED [facility] Comment on above: Performed By: #### B CID2 ####[facility] Kcxtiaicsd7[address] [place] [address]Dr. Abiel Clement Streptococcus Detected Abnormal NOT DETECTED [facility] Comment on above: Performed By: #### B CID2 ####[facility] Ckdasnnbcl2572 [place] [address]Dr. Abiel Clement Jarvis/B Resist. Gene Not detected Normal NOT DETECTED [facility] Comment on above: Performed By: #### B CID2 ####[facility] Fvpyyiwiaq8794[address] [place], [place] [address]Dr. Abiel Clement VIM Resistant Gene Not Applicable Normal NOT DETECTED [facility] Comment on above: Performed By: #### B CID2 ####[facility] Lcldtgiwmp01[address] [place], [place] [address]Dr. Abiel Clement BNPon 04-30-2022 Natriuretic peptide B (Bld) [Mass/Vol] 127.0 pg/mL Normal <=900.0 [facility] Comment on above: Performed By: #### B EDUCATION PROGRAM SPECIALIST, CMP, HSTROPN ####[facility] Cuiezhmvws013[address] [place], [place] [address]Dr. Abiel Clement CBC AUTO DIFFon 04-30-2022 BASO # 0.1 103/ul Normal 0.0-0.1 [facility] Comment on above: Performed By: #### C BC ####[facility] Etqvpcpspk69[address] [place], [place] [address]Dr. Abiel Clement Basophils/100 WBC (Bld) 0.6 % Normal 0.2-2.0 [facility] Comment on above: Performed By: #### C BC ####[facility] Ifhgjkqvuo8277[address] [place], [place] [address]Dr. Abiel Clement EO # 0.3 103/ul Normal 0.0-0.7 [facility] Comment on above: Performed By: #### C BC ####[facility] Ovfbldxych9216[address] [place], [place] [address]Dr. Abiel Clement Eosinophils/100 WBC (Bld) 2.8 % Normal 0.9-7.0 [facility] Comment on above: Performed By: #### C BC ####[facility] Epwunildcb3135 [place] [address]Dr. Abiel Clement Erythrocyte distribution width (RBC) [Ratio] 12.9 % Normal 11.0-15.0 [facility] Comment on above: Performed By: #### C BC ####[facility] Oadgrfzedj4120 [place] [address]Dr. Abiel Clement Hematocrit (Bld) [Volume fraction] 38.7 % Normal 36.0-48.0 [facility] Comment on above: Performed By: #### C BC ####[facility] Incmokxucz5636[address] [place], [place] [address]Dr. Abiel Clement Hemoglobin (Bld) [Mass/Vol] 12.5 g/dL Normal 12.0-16.0 [facility] Comment on above: Performed By: #### C BC ####[facility] Swfrsiltyp67[address] [place], [place] [address]Dr. Abiel Clement IG # 0.03 10e3/ul Normal 0.00-0.03 [facility] Comment on above: Performed By: #### C BC ####[facility] Saaotbrebn[address] [place], [place] [address]Dr. Abiel Clement IG % 0.3 % Normal 0.0-0.5 [facility] Comment on above: Performed By: #### C BC ####[facility] Dltndwzgsd80[address] [place], [place] [address]Dr. Abiel Clement LYMPH # 1.6 103/ul Normal 1.2-3.8 [facility] Comment on above: Performed By: #### C BC ####[facility] Kizdmcggyj007[address] [place], [place] [address]Dr. Abiel Clement Lymphocytes/100 WBC (Bld) 15.0 % Critically low 20.5-60.0 [facility] Comment on above: Performed By: #### C BC ####[facility] Zpryfpeqip[address] [place], [place] [address]Dr. Abiel Clement MANUAL DIFF REQ NO Normal [facility] Comment on above: Performed By: #### C BC ####[facility] Pmbqerylow1905 [place] [id number]. Abiel Clement MCH (RBC) [Entitic mass] 28.9 pg Normal 26.7-34.0 [facility] Comment on above: Performed By: #### C BC ####[facility] Ajtclwquce3035 [place] [id number]. Abiel Clement MCHC (RBC) [Mass/Vol] 32.3 g/dL Normal 29.9-35.2 [facility] Comment on above: Performed By: #### C BC ####[facility] Hopmyslqeq7546 [place] [address]Dr. Abiel Urbano MCV (RBC) [Entitic vol] 89.6 fL Normal 81.0-99.0 [facility] Comment on above: Performed By: #### C BC ####[facility] Ygmonqwocv[address] [place], [place] [address]Dr. Abiel Urbano MONO # 0.8 103/ul Normal 0.3-0.8 [facility] Comment on above: Performed By: #### C BC ####[facility] Qsgifacqxp4269 [place] [address]Dr. Suyapaviviana Clement Monocytes/100 WBC (Bld) 7.2 % Normal 1.7-12.0 [facility] Comment on above: Performed By: #### C BC ####[facility] Xbsfjhtotv5971 [place] [address]DrKasia Abiel Urbano NEUT # 7.9 103/ul Critically high 1.4-6.5 [facility] Comment on above: Performed By: #### C BC ####[facility] Gqilqftzrj6497 [place] [phone] Suyapaviviana Clement Neutrophils/100 WBC (Bld) 74.1 % Normal 43.0-75.0 [facility] Comment on above: Performed By: #### C BC ####[facility] Xhniuluzvv9963 [place] [phone] Suyapaviviana Clement Platelet mean volume (Bld) [Entitic vol] 10.9 fL Normal 9.5-13.5 [facility] Comment on above: Performed By: #### C BC ####[facility] Ejfgkbjvmf5520 [place], [place] [address]Qn. Abiel Clement PLT 308 103/ul Normal 150-450 [facility] Comment on above: Performed By: #### C BC ####[facility] Cevtefaxhg0189 [place], [place] [address]Yo. Abiel Clement RBC 4.32 106/ul Normal 4.20-5.40 [facility] Comment on above: Performed By: #### C BC ####[facility] Kdigvovsgt6033 [place], [place] [address]Ni. Abiel Clement WBC 10.6 103/ul Normal 4.0-11.0 [facility] Comment on above: Performed By: #### C BC ####[facility] Hktiafkozk3966 [place] [phone]. Abiel Clement Covid-19 PCR (CVDTB)on 04-06 SARS-CoV-2 (COVID-19) RNA CLARIBEL+probe Ql (Unsp spec) Not detected Normal NOT DETECTED [facility] Comment on above: Result Comment: [...] for this test is supported by the [place] of Health and Human Service's declaration that [...] be used). Performed By: #### C VDTBH ####[facility] Wyynrgrkyu4024 [place] [phone]. Abiel Clement LACTATE/LACTIC ACIDon 2021 Lactate [Moles/Vol] 2.3 mmol/L Critically high 0.4-1.9 [facility] Comment on above: Performed By: #### L ACT ####[facility] Trhopchmgr9501 [place] [address]Dr. Abiel Clement Lactate [Moles/Vol] 3.3 mmol/L Critically high 0.4-1.9 [facility] Comment on above: Performed By: #### L ACT ####[facility] Vjszmosuka9841 [place] [address]Dr. Abiel Clement PROF 14(COMP METB)on 022 Albumin [Mass/Vol] 3.0 g/dL Critically low 3.4-5.0 [facility] Comment on above: Performed By: #### B EDUCATION PROGRAM SPECIALIST, CMP, HSTROPN ####[facility] Uycteycrhz9913 [place] [address]Dr. Abiel Clement Albumin/Globulin [Mass ratio] 0.7 {ratio} Normal [facility] Comment on above: Performed By: #### B EDUCATION PROGRAM SPECIALIST, CMP, HSTROPN ####[facility] Dtowwytrrw6444 [place] [address]Dr. Abiel Clement ALP [Catalytic activity/Vol] 218 U/L Critically high 46-116 [facility] Comment on above: Performed By: #### B EDUCATION PROGRAM SPECIALIST, CMP, HSTROPN ####[facility] Ufjclvlzue1641 [place] [address]Dr. Abiel Clement ALT [Catalytic activity/Vol] 29 U/L Normal 14-59 [facility] Comment on above: Performed By: #### B EDUCATION PROGRAM SPECIALIST, CMP, HSTROPN ####[facility] Duldteouot5200 [place] [address]Dr. Abiel Clement Anion gap [Moles/Vol] 14.3 mmol/L Normal [facility] Comment on above: Performed By: #### B EDUCATION PROGRAM SPECIALIST, CMP, HSTROPN ####[facility] Qfkgndznne2229 [place] [address]Dr. Abiel Clement AST [Catalytic activity/Vol] 20 U/L Normal 15-37 [facility] Comment on above: Performed By: #### B EDUCATION PROGRAM SPECIALIST, CMP, HSTROPN ####[facility] Kopavutqmb0439 [place] [address]Dr. Abiel Clement Bilirubin [Mass/Vol] 0.3 mg/dL Normal 0.2-1.0 [facility] Comment on above: Performed By: #### B EDUCATION PROGRAM SPECIALIST, CMP, HSTROPN ####[facility] Gxgtkcabta85[address] [place], [place] [address]Dr. Abiel Clement Calcium [Mass/Vol] 9.2 mg/dL Normal 8.5-10.1 [facility] Comment on above: Performed By: #### B EDUCATION PROGRAM SPECIALIST, CMP, HSTROPN ####[facility] Dkdxjpcwfx289[address] [place], [place] [address]Dr. Abiel Clement Chloride [Moles/Vol] 98 mmol/L Normal 98-107 [facility] Comment on above: Performed By: #### B EDUCATION PROGRAM SPECIALIST, CMP, HSTROPN ####[facility] Uskkrprmdl[address] [place], [place] [address]Dr. Abiel Clement CO2 [Moles/Vol] 26.5 mmol/L Normal 21.0-32.0 [facility] Comment on above: Performed By: #### B EDUCATION PROGRAM SPECIALIST, CMP, HSTROPN ####[facility] Tvsrdvonps17[address] [place], [place] [address]Dr. Abiel Clement Creatinine [Mass/Vol] 1.10 mg/dL Critically high 0.55-1.02 [facility] Comment on above: Performed By: #### B EDUCATION PROGRAM SPECIALIST, CMP, HSTROPN ####[facility] Tytgrkbtlj5468 [place] [address]Dr. Abiel Clement EGFR-AF DANISH >60 Normal >=60 [facility] Comment on above: Performed By: #### B EDUCATION PROGRAM SPECIALIST, CMP, HSTROPN ####[facility] Lwazoydbis3562 [place] [address]Dr. Abiel Urbano EGFR-NON AF DANISH 50 mL/min/1.73m2 Critically low >=60 [facility] Comment on above: Performed By: #### B EDUCATION PROGRAM SPECIALIST, CMP, HSTROPN ####[facility] Ronguhshuo0661 [place] [address]Dr. Abiel Clement Globulin (S) [Mass/Vol] 4.3 g/dL Normal [facility] Comment on above: Performed By: #### B EDUCATION PROGRAM SPECIALIST, CMP, HSTROPN ####[facility] Jqllsejxaq1570 [place] [address]Dr. Abiel Clement Glucose [Mass/Vol] 338 mg/dL Critically high 74-106 [facility] Comment on above: Performed By: #### B EDUCATION PROGRAM SPECIALIST, CMP, HSTROPN ####[facility] Ozekivlfjz88[address] [place], [place] [address]Dr. Abiel Clement Potassium [Moles/Vol] 3.8 mmol/L Normal 3.5-5.1 [facility] Comment on above: Performed By: #### B EDUCATION PROGRAM SPECIALIST, CMP, HSTROPN ####[facility] Kxaorhfxkh9950[address] [place], [place] [address]Dr. Abiel Clemnet Protein [Mass/Vol] 7.3 g/dL Normal 6.4-8.2 [facility] Comment on above: Performed By: #### B EDUCATION PROGRAM SPECIALIST, CMP, HSTROPN ####[facility] Idcdcaxuxo9283 [place] [address]Dr. Abiel Clement Sodium [Moles/Vol] 135 mmol/L Critically low 136-145 [facility] Comment on above: Performed By: #### B EDUCATION PROGRAM SPECIALIST, CMP, HSTROPN ####[facility] Wwglvpmpve7404[address] [place], [place] [address]Dr. Abiel Clement Urea nitrogen [Mass/Vol] 23.0 mg/dL Critically high 7.0-18.0 [facility] Comment on above: Performed By: #### B EDUCATION PROGRAM SPECIALIST, CMP, HSTROPN ####[facility] Mecbdiuktl9531 [place] [address]Dr. Abiel Clement Urea nitrogen/Creatinine [Mass ratio] 20.9 mg/mg Normal [facility] Comment on above: Performed By: #### B EDUCATION PROGRAM SPECIALIST, CMP, HSTROPN ####[facility] Qoxbdflmsk4331 [place] [phone]. Abiel Clement TROPONIN, HIGH SENSITIVITYon 04-30-2022 HSTROP 3.8 pg/mL Critically low 4.0-51.3 [facility] Comment on above: Result Comment: CUT- OFF POINTS HAVE BEEN ESTABLISHED BASED ON THE FOURTH UNIVERSAL DEFINITIONS OF MYOCARDIALINFARCTION. THE UPPER REFERENCE LIMIT (URL) OF TROPONIN, DEFINED THE 99TH PERCENTILE OFcTnI DISTRIBUTION IN A REFERENCE POPULATION, HAS BEEN CONFIRMED THE DECISION THRESHOLDFOR [place] DIAGNOSIS. Performed By: #### H STROPN ####[facility] Woglilpsqw3[address] [place], [place] [address]Dr. Abiel Urbano HSTROP 4.0 pg/mL Normal 4.0-51.3 [facility] Comment on above: Result Comment: CUT- OFF POINTS HAVE BEEN ESTABLISHED BASED ON THE FOURTH UNIVERSAL DEFINITIONS OF MYOCARDIALINFARCTION. THE UPPER REFERENCE LIMIT (URL) OF TROPONIN, DEFINED THE 99TH PERCENTILE OFcTnI DISTRIBUTION IN A REFERENCE POPULATION, HAS BEEN CONFIRMED THE DECISION THRESHOLDFOR [place] DIAGNOSIS. Performed By: #### B EDUCATION PROGRAM SPECIALIST, CMP, HSTROPN ####[facility] Vtqbhebrae[address] [place], [place] [address]Dr. Abiel Urbano XR CHEST 1 Von 04-30-2022 XR CHEST 1 V Normal [facility] BNPon 03-15-2022 Natriuretic peptide B (Bld) [Mass/Vol] 2586.0 pg/mL Critically high <=900.0 [facility] Comment on above: Result Comment: repe ated Performed By: #### C MP, BNP, HSTROPN ####[facility] Ejdiwhyiat1376 [place] [address]Dr. Abiel Urbano CBC AUTO DIFFon 03-15-2022 BASO # 0.0 103/ul Normal 0.0-0.1 [facility] Comment on above: Performed By: #### C BC ####[facility] Byhkhhkwlh8724 [place] [address]Dr. Abiel Clement Basophils/100 WBC (Bld) 0.4 % Normal 0.2-2.0 [facility] Comment on above: Performed By: #### C BC ####[facility] Saozzhzpcf7534 [place] [address]Dr. Abiel Clement EO # 0.1 103/ul Normal 0.0-0.7 [facility] Comment on above: Performed By: #### C BC ####[facility] Iqgoyyynky9132 [place] [address]Dr. Abiel Clement Eosinophils/100 WBC (Bld) 1.8 % Normal 0.9-7.0 [facility] Comment on above: Performed By: #### C BC ####[facility] Xhwqjeoeod4168[address] [place], [place] [address]Dr. Abiel Clement Erythrocyte distribution width (RBC) [Ratio] 13.7 % Normal 11.0-15.0 [facility] Comment on above: Performed By: #### C BC ####[facility] Kzvntzwlko2374[address] [place], [place] [address]Dr. Abiel Clement Hematocrit (Bld) [Volume fraction] 29.7 % Critically low 36.0-48.0 [facility] Comment on above: Performed By: #### C BC ####[facility] Xmxcmcqkrx798[address] [place], [place] [address]Dr. Abiel Clement Hemoglobin (Bld) [Mass/Vol] 9.5 g/dL Critically low 12.0-16.0 [facility] Comment on above: Performed By: #### C BC ####[facility] Xaleayvbpv7175[address] [place], [place] [address]Dr. Abiel Clement IG # 0.02 10e3/ul Normal 0.00-0.03 [facility] Comment on above: Performed By: #### C BC ####[facility] Falnozetdx7124[address] [place], [place] [address]Dr. Abiel Clement IG % 0.3 % Normal 0.0-0.5 [facility] Comment on above: Performed By: #### C BC ####[facility] Eelximykzp1928[address] [place], [place] [address]DrKasia Clement LYMPH # 1.6 103/ul Normal 1.2-3.8 [facility] Comment on above: Performed By: #### C BC ####[facility] Tomaoazucc0414 [place] [phone]. Abiel Clement Lymphocytes/100 WBC (Bld) 20.1 % Critically low 20.5-60.0 [facility] Comment on above: Performed By: #### C BC ####[facility] Xqwltpbxso0584 [place] [phone] Clement MANUAL DIFF REQ NO Normal [facility] Comment on above: Performed By: #### C BC ####[facility] Eqnaytodyc6117 [place] [phone]. Abiel Clement MCH (RBC) [Entitic mass] 29.6 pg Normal 26.7-34.0 [facility] Comment on above: Performed By: #### C BC ####[facility] Jrgubsirsf600[address] [place], [place] [address]Dr. Abiel Clement MCHC (RBC) [Mass/Vol] 32.0 g/dL Normal 29.9-35.2 [facility] Comment on above: Performed By: #### C BC ####[facility] Hwrwzqaewo9[address] [place], [place] [id number] Clement MCV (RBC) [Entitic vol] 92.5 fL Normal 81.0-99.0 [facility] Comment on above: Performed By: #### C BC ####[facility] Fbrlgrpavn3683 [place] [address]Dr. Abiel Clement MONO # 0.6 103/ul Normal 0.3-0.8 [facility] Comment on above: Performed By: #### C BC ####[facility] Fkwsppiwml26[address] [place], [place] [id number] Clement Monocytes/100 WBC (Bld) 7.1 % Normal 1.7-12.0 [facility] Comment on above: Performed By: #### C BC ####[facility] Zpgadokgfl[address] [place], [place] [id number] Clement NEUT # 5.5 103/ul Normal 1.4-6.5 [facility] Comment on above: Performed By: #### C BC ####[facility] Xaiesgxbxv5255 [place] [address]DrKasia Clement Neutrophils/100 WBC (Bld) 70.3 % Normal 43.0-75.0 [facility] Comment on above: Performed By: #### C BC ####[facility] Bgtabeyygj0058 [place] [address]DrKasia Clement Platelet mean volume (Bld) [Entitic vol] 10.5 fL Normal 9.5-13.5 [facility] Comment on above: Performed By: #### C BC ####[facility] Rmkzjpeebm2787 [place] [address]DrKasia Clement PLT 250 103/ul Normal 150-450 [facility] Comment on above: Performed By: #### C BC ####[facility] Ufoucwecxe9308 [place] [address]DrKasia Clement RBC 3.21 106/ul Critically low 4.20-5.40 [facility] Comment on above: Performed By: #### C BC ####[facility] Lvfrkfbxwh467[address] [place], [place] [address]DrKasia Clement WBC 7.9 103/ul Normal 4.0-11.0 [facility] Comment on above: Performed By: #### C BC ####[facility] Qgtktctllg2557 [place] [address]DrKasia Clement PROF 14(COMP METB)on 022 Albumin [Mass/Vol] 2.2 g/dL Critically low 3.4-5.0 [facility] Comment on above: Performed By: #### C MP, BNP, HSTROPN ####[facility] Fsveqgjweg0445 [place] [address]DrKasia Clement Albumin/Globulin [Mass ratio] 0.6 {ratio} Normal [facility] Comment on above: Performed By: #### C MP, BNP, HSTROPN ####[facility] Dfipyclpsm1553 [place] [address]DrKasia Clement ALP [Catalytic activity/Vol] 112 U/L Normal 46-116 [facility] Comment on above: Performed By: #### C MP, BNP, HSTROPN ####[facility] Tbsavhxedd1263 [place] [address]Dr. Abiel Clement ALT [Catalytic activity/Vol] 19 U/L Normal 14-59 [facility] Comment on above: Performed By: #### C MP, BNP, HSTROPN ####[facility] Xgoogbmegf1421 [place] [address]Dr. Abiel Clement Anion gap [Moles/Vol] 12.2 mmol/L Normal Th [facility] Comment on above: Performed By: #### C MP, BNP, HSTROPN ####[facility] Ahmcvllmyw09[address] [place], [place] [address]Dr. Abiel Clement AST [Catalytic activity/Vol] 15 U/L Normal 15-37 [facility] Comment on above: Performed By: #### C MP, BNP, HSTROPN ####[facility] Vbydrdliys[address] [place], [place] [address]Dr. Abiel Clement Bilirubin [Mass/Vol] 0.3 mg/dL Normal 0.2-1.0 [facility] Comment on above: Performed By: #### C MP, BNP, HSTROPN ####[facility] Agwvxdsqix8117 [place] [address]Dr. Abiel Clement Calcium [Mass/Vol] 8.6 mg/dL Normal 8.5-10.1 [facility] Comment on above: Performed By: #### C MP, BNP, HSTROPN ####[facility] Wcduaoimpy6180 [place] [address]Dr. Abiel Clement Chloride [Moles/Vol] 104 mmol/L Normal 98-107 [facility] Comment on above: Performed By: #### C MP, BNP, HSTROPN ####[facility] Buvygffypl1421 [place] [address]Dr. Abiel Clement CO2 [Moles/Vol] 25.3 mmol/L Normal 21.0-32.0 [facility] Comment on above: Performed By: #### C MP, BNP, HSTROPN ####[facility] Eneciwteog9487 [place] [address]Dr. Abiel Clement Creatinine [Mass/Vol] 0.98 mg/dL Normal 0.55-1.02 [facility] Comment on above: Performed By: #### C MP, BNP, HSTROPN ####[facility] Xwmgwpkvjc2886 [place] [address]Dr. Abiel Clement EGFR-AF DANISH >60 Normal >=60 [facility] Comment on above: Performed By: #### C MP, BNP, HSTROPN ####[facility] Trklhvhupe85[address] [place], [place] [address]Dr. Abiel Clement EGFR-NON AF DANISH 58 mL/min/1.73m2 Critically low >=60 [facility] Comment on above: Performed By: #### C MP, BNP, HSTROPN ####[facility] Hkenxypuhv867[address] [place], [place] [address]Dr. Abiel Clement Globulin (S) [Mass/Vol] 3.7 g/dL Normal [facility] Comment on above: Performed By: #### C MP, BNP, HSTROPN ####[facility] Ofvxnxebup3499[address] [place], [place] [address]Dr. Abiel Clement Glucose [Mass/Vol] 279 mg/dL Critically high 74-106 [facility] Comment on above: Performed By: #### C MP, BNP, HSTROPN ####[facility] Tnztnoswgf0378 [place] [address]Dr. Abiel Clement Potassium [Moles/Vol] 3.5 mmol/L Normal 3.5-5.1 [facility] Comment on above: Performed By: #### C MP, BNP, HSTROPN ####[facility] Omvtxqmuuc4684[address] [place], [place] [address]Dr. Abiel Clement Protein [Mass/Vol] 5.9 g/dL Critically low 6.4-8.2 Th [facility] Comment on above: Performed By: #### C MP, BNP, HSTROPN ####[facility] Qqamhqophv3078 [place] [address]Dr. Abiel Clement Sodium [Moles/Vol] 138 mmol/L Normal 136-145 [facility] Comment on above: Performed By: #### C MP, BNP, HSTROPN ####[facility] Blwgxuomko4680 [place] [address]Dr. Abiel Clement Urea nitrogen [Mass/Vol] 23.0 mg/dL Critically high 7.0-18.0 [facility] Comment on above: Performed By: #### C MP, BNP, HSTROPN ####[facility] Wordoxhxlj647[address] [place], [place] [address]Dr. Abiel Clement Urea nitrogen/Creatinine [Mass ratio] 23.5 mg/mg Normal [facility] Comment on above: Performed By: #### C MP, BNP, HSTROPN ####[facility] Jwxbsfxcul9449[address] [place], [place] [address]Dr. Abiel Clement TROPONIN, HIGH SENSITIVITYon 03-15-2022 HSTROP 9.0 pg/mL Normal 4.0-51.3 [facility] Comment on above: Result Comment: CUT- OFF POINTS HAVE BEEN ESTABLISHED BASED ON THE FOURTH UNIVERSAL DEFINITIONS OF MYOCARDIALINFARCTION. THE UPPER REFERENCE LIMIT (URL) OF TROPONIN, DEFINED THE 99TH PERCENTILE OFcTnI DISTRIBUTION IN A REFERENCE POPULATION, HAS BEEN CONFIRMED THE DECISION THRESHOLDFOR [place] DIAGNOSIS. Performed By: #### C MP, BNP, HSTROPN ####[facility] Idvprdnozg85[address] [place], [place] [address]Dr. Abiel Clement BNPon 03-14-2022 Natriuretic peptide B (Bld) [Mass/Vol] 3438.0 pg/mL Critically high <=900.0 [facility] Comment on above: Performed By: #### H STROPN, BNP, CMP ####[facility] Brxhwnodew1888[address] [place], [place] [address]Dr. Abiel Clement CBC AUTO DIFFon 03-14-2022 BASO # 0.0 103/ul Normal 0.0-0.1 [facility] Comment on above: Performed By: #### C BC ####[facility] Baoecjmrbe0855 [place] [id number]. Abiel Clement Basophils/100 WBC (Bld) 0.4 % Normal 0.2-2.0 [facility] Comment on above: Performed By: #### C BC ####[facility] Ywkxdwjaer5167 [place] [phone]. Abiel Clement EO # 0.1 103/ul Normal 0.0-0.7 [facility] Comment on above: Performed By: #### C BC ####[facility] Kdzfdetzax6924[address] [place], [place] [address]Dr. Abiel Clement Eosinophils/100 WBC (Bld) 0.9 % Normal 0.9-7.0 [facility] Comment on above: Performed By: #### C BC ####[facility] Phfhdirqxi5200[address] [place], [place] [address]Dr. Abiel Clement Erythrocyte distribution width (RBC) [Ratio] 13.5 % Normal 11.0-15.0 [facility] Comment on above: Performed By: #### C BC ####[facility] Naomgkapli468[address] [place], [place] [address]Dr. Abiel Clement Hematocrit (Bld) [Volume fraction] 29.5 % Critically low 36.0-48.0 [facility] Comment on above: Performed By: #### C BC ####[facility] Fjfxouijqh[address] [place], [place] [address]Dr. Abiel Clement Hemoglobin (Bld) [Mass/Vol] 9.3 g/dL Critically low 12.0-16.0 [facility] Comment on above: Performed By: #### C BC ####[facility] Axfmdkexcj6255[address] [place], [place] [address]Dr. Abiel Clement IG # 0.07 10e3/ul Critically high 0.00-0.[address] [facility] Comment on above: Performed By: #### C BC ####[facility] Axzgirjtdi199[address] [place], [place] [address]Dr. Abiel Clement IG % 0.7 % Critically high 0.0-0.5 [facility] Comment on above: Performed By: #### C BC ####[facility] Gemlpcetxj8534 [place] [phone]. Abiel Urbano LYMPH # 1.7 103/ul Normal 1.2-3.8 [facility] Comment on above: Performed By: #### C BC ####[facility] Gpcnrizoke9154 [place] [phone]. Abiel Clement Lymphocytes/100 WBC (Bld) 17.0 % Critically low 20.5-60.0 [facility] Comment on above: Performed By: #### C BC ####[facility] Kqkoknbwem6916 [place] [phone]. Abiel Clement MANUAL DIFF REQ NO Normal [facility] Comment on above: Performed By: #### C BC ####[facility] Axkhabselq6185 [place] [phone]. Abiel Clement MCH (RBC) [Entitic mass] 29.2 pg Normal 26.7-34.0 [facility] Comment on above: Performed By: #### C BC ####[facility] Gicacilxhh2403 [place] [phone]. Abiel Clement MCHC (RBC) [Mass/Vol] 31.5 g/dL Normal 29.9-35.2 [facility] Comment on above: Performed By: #### C BC ####[facility] Congvuoqmv4716 [place] [phone]. Abiel Clement MCV (RBC) [Entitic vol] 92.5 fL Normal 81.0-99.0 [facility] Comment on above: Performed By: #### C BC ####[facility] Wcjniymdoz2520 [place] [address]Dr. Abiel Clement MONO # 0.9 103/ul Critically high 0.3-0.8 [facility] Comment on above: Performed By: #### C BC ####[facility] Gorsahbcuo4390 [place] [phone]. Abiel Clement Monocytes/100 WBC (Bld) 9.1 % Normal 1.7-12.0 [facility] Comment on above: Performed By: #### C BC ####[facility] Vukqgimpyv5225 [place] [phone]. Abiel Clement NEUT # 7.3 103/ul Critically high 1.4-6.5 [facility] Comment on above: Performed By: #### C BC ####[facility] Qagfvpcdwy1643 [place] [phone]. Abiel Clement Neutrophils/100 WBC (Bld) 71.9 % Normal 43.0-75.0 [facility] Comment on above: Performed By: #### C BC ####[facility] Ectozxdult1543 [place] [phone]. Abiel Clement Platelet mean volume (Bld) [Entitic vol] 11.0 fL Normal 9.5-13.5 [facility] Comment on above: Performed By: #### C BC ####[facility] Xyuqmlhwex5935 [place] [address]Dr. Abiel Clement PLT 232 103/ul Normal 150-450 [facility] Comment on above: Performed By: #### C BC ####[facility] Ttsceusfyk9385 [place] [phone]. Abiel Clement RBC 3.19 106/ul Critically low 4.20-5.40 [facility] Comment on above: Performed By: #### C BC ####[facility] Fhxplpyazx8[address] [place] [id number]. Abiel Clement WBC 10.1 103/ul Normal 4.0-11.0 [facility] Comment on above: Performed By: #### C BC ####[facility] Muyzwcxwfx6004 [place] [id number]. Abiel Clement POINT OF CARE GLUCOSEon 03-05 0-2021 Glucose [Mass/Vol] 141 mg/dL Critically high 74-106 [facility] Comment on above: Performed By: #### P OCGLUC ####[facility] Zlaziocgwk38[address] [place] [address]Dr. Abiel Clement Glucose [Mass/Vol] 182 mg/dL Critically high 74-106 [facility] Comment on above: Performed By: #### P OCGLUC ####[facility] Sycrkcndco60[address] [place] [address]Dr. Abiel Clement Glucose [Mass/Vol] 235 mg/dL Critically high [facility]106 [facility] Comment on above: Performed By: #### P OCGLUC ####[facility] Jbilexeuty6041 [place] [address]Dr. Abiel Clement Glucose [Mass/Vol] 246 mg/dL Critically high -106 [facility] Comment on above: Performed By: #### P OCGLUC ####[facility] Zmqchqavdm1650 [place] [address]Dr. Abiel Clement Glucose [Mass/Vol] 256 mg/dL Critically high -[address] [place] [address] Comment on above: Performed By: #### P OCGLUC ####[facility] Kkjaxlqwkt[address] [place], [place] [address]Dr. Abiel Clement Glucose [Mass/Vol] 249 mg/dL Critically high [address] [place] [address] Comment on above: Performed By: #### P OCGLUC ####[facility] Piqxflphuk37[address] [place] [address]Dr. Abiel Clement PROF 14(COMP METB)on 022 Albumin [Mass/Vol] 2.2 g/dL Critically low 3.4-5.0 [facility] Comment on above: Performed By: #### H STROPN, BNP, CMP ####[facility] Ilvwcxxghq1702 [place] [address]Dr. Abiel Clement Albumin/Globulin [Mass ratio] 0.6 {ratio} Normal [facility] Comment on above: Performed By: #### H STROPN, BNP, CMP ####[facility] Mmmkflncln4249 [place] [address]Dr. Abiel Clement ALP [Catalytic activity/Vol] 114 U/L Normal 46-116 [facility] Comment on above: Performed By: #### H STROPN, BNP, CMP ####[facility] Nwdvolvyjn7495 [place] [address]Dr. Abiel Clement ALT [Catalytic activity/Vol] 20 U/L Normal 14-59 [facility] Comment on above: Performed By: #### H STROPN, BNP, CMP ####[facility] Kgyuwvjnjz2671 [place] [address]Dr. Abiel Clement Anion gap [Moles/Vol] 9.7 mmol/L Normal [facility] Comment on above: Performed By: #### H STROPN, BNP, CMP ####[facility] Ugnjdklijd8359 [place] [address]Dr. Abiel Clement AST [Catalytic activity/Vol] 18 U/L Normal 15-37 [facility] Comment on above: Performed By: #### H STROPN, BNP, CMP ####[facility] Dqyabgkcac3877 [place] [address]Dr. Abiel Clement Bilirubin [Mass/Vol] 0.2 mg/dL Normal 0.2-1.0 [facility] Comment on above: Performed By: #### H STROPN, BNP, CMP ####[facility] Syvpedkodf[address] [place], [place] [address]Dr. Abiel Clement Calcium [Mass/Vol] 8.4 mg/dL Critically low 8.5-10.1 [facility] Comment on above: Performed By: #### H STROPN, BNP, CMP ####[facility] Ozlvkvehbv0354 [place] [address]Dr. Abiel Clement Chloride [Moles/Vol] 105 mmol/L Normal 98-107 [facility] Comment on above: Performed By: #### H STROPN, BNP, CMP ####[facility] Xkoqcxindr8235 [place] [address]Dr. Abiel Clement CO2 [Moles/Vol] 26.1 mmol/L Normal 21.0-32.0 [facility] Comment on above: Performed By: #### H STROPN, BNP, CMP ####[facility] Xbgbprmlur5418 [place] [address]Dr. Abiel Clement Creatinine [Mass/Vol] 1.01 mg/dL Normal 0.55-1.02 [facility] Comment on above: Performed By: #### H STROPN, BNP, CMP ####[facility] Kbryiswvre6663 [place] [address]Dr. Abiel Clement EGFR-AF DANISH >60 Normal >=60 [facility] Comment on above: Performed By: #### H STROPN, BNP, CMP ####[facility] Nnoaayfvjy0344 [place] [address]Dr. Abiel Clement EGFR-NON AF DANISH 56 mL/min/1.73m2 Critically low >=60 [facility] Comment on above: Performed By: #### H STROPN, BNP, CMP ####[facility] Oxyotwpkaf2698 [place] [address]Dr. Abiel Clement Globulin (S) [Mass/Vol] 3.4 g/dL Normal [facility] Comment on above: Performed By: #### H STROPN, BNP, CMP ####[facility] Mkduzchwac0428 [place] [address]Dr. Abiel Clement Glucose [Mass/Vol] 267 mg/dL Critically high 74-106 [facility] Comment on above: Performed By: #### H STROPN, BNP, CMP ####[facility] Prthafdvgp5[address] [place], [place] [address]Dr. Abiel Clement Potassium [Moles/Vol] 3.8 mmol/L Normal 3.5-5.1 [facility] Comment on above: Performed By: #### H STROPN, BNP, CMP ####[facility] Shrklrpwgf3270 [place] [address]Dr. Abiel Clement Protein [Mass/Vol] 5.6 g/dL Critically low 6.4-8.2 [facility] Comment on above: Performed By: #### H STROPN, BNP, CMP ####[facility] Uxqaauiskz55[address] [place], [place] [address]Dr. Abile Clement Sodium [Moles/Vol] 137 mmol/L Normal 136-145 [facility] Comment on above: Performed By: #### H STROPN, BNP, CMP ####[facility] Ewdsevdenv5440 [place] [address]Dr. Abiel Clement Urea nitrogen [Mass/Vol] 28.0 mg/dL Critically high 7.0-18.0 [facility] Comment on above: Performed By: #### H STROPN, BNP, CMP ####[facility] Tgacrvtwad7085 [place] [address]Dr. Abiel Clement Urea nitrogen/Creatinine [Mass ratio] 27.7 mg/mg Normal [facility] Comment on above: Performed By: #### H STROPN, BNP, CMP ####[facility] Tgdtiwxcfx7443 [place] [address]Dr. Suyapaviviana Clement TROPONIN, HIGH SENSITIVITYon 03-14-2022 HSTROP 13.7 pg/mL Normal 4.0-51.3 [facility] Comment on above: Result Comment: CUT- OFF POINTS HAVE BEEN ESTABLISHED BASED ON THE FOURTH UNIVERSAL DEFINITIONS OF MYOCARDIALINFARCTION. THE UPPER REFERENCE LIMIT (URL) OF TROPONIN, DEFINED THE 99TH PERCENTILE OFcTnI DISTRIBUTION IN A REFERENCE POPULATION, HAS BEEN CONFIRMED THE DECISION THRESHOLDFOR KS DIAGNOSIS. Performed By: #### H STROPN, BNP, CMP ####[facility] Uhtmndzgqu[address] [place], [place] [address]Dr. Abiel Clement BNPon 03-13-2022 Natriuretic peptide B (Bld) [Mass/Vol] 1791.0 pg/mL Critically high <=900.0 [facility] Comment on above: Performed By: #### C MP, BNP ####[facility] Jsqbyfefgq2352 [place] [address]Dr. Abiel Clement Natriuretic peptide B (Bld) [Mass/Vol] 698.0 pg/mL Normal <=900.0 [facility] Comment on above: Performed By: #### B EDUCATION PROGRAM SPECIALIST, CMP ####[facility] Jmowzozuho2828 [place] [address]Dr. Abiel Clement CBC AUTO DIFFon 03-13-2022 BASO # 0.0 103/ul Normal 0.0-0.1 [facility] Comment on above: Performed By: #### C BC ####[facility] Dbakekjfod8950 [place] [address]Dr. Abiel Clement Basophils/100 WBC (Bld) 0.2 % Normal 0.2-2.0 [facility] Comment on above: Performed By: #### C BC ####[facility] Fuzzzdwzrv3714 [place] [address]DrKasia Clement EO # 0.0 103/ul Normal 0.0-0.7 [facility] Comment on above: Performed By: #### C BC ####[facility] Hzjfwvxyad745[address] [place], [place] [address]Dr. Abiel Clement Eosinophils/100 WBC (Bld) 0.0 % Critically low 0.9-7.0 [facility] Comment on above: Performed By: #### C BC ####[facility] Vssilvvvxp764[address] [place], [place] [address]Dr. Abiel Clement Erythrocyte distribution width (RBC) [Ratio] 13.3 % Normal 11.0-15.0 [facility] Comment on above: Performed By: #### C BC ####[facility] Vkkawkstbd64[address] [place], [place] [address]Dr. Abiel Clement Hematocrit (Bld) [Volume fraction] 33.4 % Critically low 36.0-48.0 [facility] Comment on above: Performed By: #### C BC ####[facility] Iwbdzuvoqn308[address] [place], [place] [address]DrKasia Clement Hemoglobin (Bld) [Mass/Vol] 10.6 g/dL Critically low 12.0-16.0 [facility] Comment on above: Performed By: #### C BC ####[facility] Tzqgzujjjk76[address] [place], [place] [address]DrKasia Clement IG # 0.13 10e3/ul Critically high 0.00-0.[address] [facility] Comment on above: Performed By: #### C BC ####[facility] Pveymywpqt027[address] [place], [place] [address]Dr. Abiel Clement IG % 0.8 % Critically high 0.0-0.5 [facility] Comment on above: Performed By: #### C BC ####[facility] Iwmcxcmpta18[address] [place], [place] [address]DrKasia Clement LYMPH # 1.0 103/ul Critically low 1.2-3.8 [facility] Comment on above: Performed By: #### C BC ####[facility] Hbgitjrdmu8278 [place] [address]Dr. Abiel Clement Lymphocytes/100 WBC (Bld) 6.0 % Critically low 20.5-60.0 [facility] Comment on above: Performed By: #### C BC ####[facility] Sgunekhojs447[address] [place], [place] [address]Dr. Abiel Clement MANUAL DIFF REQ NO Normal [facility] Comment on above: Performed By: #### C BC ####[facility] Kpzqkpgxhz89[address] [place], [place] [address]Dr. Abiel Clement MCH (RBC) [Entitic mass] 30.0 pg Normal 26.7-34.0 [facility] Comment on above: Performed By: #### C BC ####[facility] Imogwbsdft3718[address] [place], [place] [address]Dr. Abiel Clement MCHC (RBC) [Mass/Vol] 31.7 g/dL Normal 29.9-35.2 [facility] Comment on above: Performed By: #### C BC ####[facility] Eslocusmlp4299[address] [place], [place] [address]DrKasia Clement MCV (RBC) [Entitic vol] 94.6 fL Normal 81.0-99.0 [facility] Comment on above: Performed By: #### C BC ####[facility] Irzzvygpur925[address] [place], [place] [address]Dr. Abiel Clement MONO # 1.4 103/ul Critically high 0.3-0.8 [facility] Comment on above: Performed By: #### C BC ####[facility] Ljfyzegqft9017[address] [place], [place] [address]DrKasia Clement Monocytes/100 WBC (Bld) 8.9 % Normal 1.7-12.0 [facility] Comment on above: Performed By: #### C BC ####[facility] Kjifjerafc4[address] [place], [place] [address]Dr. Abiel Clement NEUT # 13.3 103/ul Critically high 1.4-6.5 [facility] Comment on above: Performed By: #### C BC ####[facility] Gismwcgozu7715 [place] [address]Dr. Abiel Clement Neutrophils/100 WBC (Bld) 84.1 % Critically high 43.0-75.0 [facility] Comment on above: Performed By: #### C BC ####[facility] Lwiccxqdbi117[address] [place], [place] [address]Dr. Abiel Clement Platelet mean volume (Bld) [Entitic vol] 10.8 fL Normal 9.5-13.5 [facility] Comment on above: Performed By: #### C BC ####[facility] Ylvybrrwpq1733[address] [place], [place] [address]Dr. Abiel Urbano PLT 243 103/ul Normal 150-450 [facility] Comment on above: Performed By: #### C BC ####[facility] Uzyxjlrqgj299[address] [place], [place] [address]Dr. Abiel Clement RBC 3.53 106/ul Critically low 4.20-5.40 [facility] Comment on above: Performed By: #### C BC ####[facility] Ojrlpidsrz988[address] [place], [place] [address]Dr. Abiel Clement WBC 15.9 103/ul Critically high 4.0-11.0 [facility] Comment on above: Performed By: #### C BC ####[facility] Shgvclbjmi7[address] [place], [place] [address]Dr. Abiel Urbano CBC W MANUAL DIFFon 03-13-20 22 ATYPICAL LYMPH # Normal [facility] Comment on above: Performed By: #### C BCMAN ####[facility] Czdveffnjy9[address] [place], [place] [address]Dr. Abiel Urbano ATYPICAL LYMPH % Normal [facility] Comment on above: Performed By: #### C BCMAN ####[facility] Cvtvdofmvt20[address] [place], [place] [address]Dr. Abiel Clement BAND # 0.8 103/ul Critically high 0.0-0.3 [facility] Comment on above: Performed By: #### C BCMAN ####[facility] Tewayvtnzk7934 [place] [id number]. Abiel Clement BAND % 6 % Critically high 0-5 [facility] Comment on above: Performed By: #### C BCMAN ####[facility] Gnzhjzhojz1782 [place] [phone]. Yiviviana Clement BASOM # 0.00 103/ul Normal 0.00-0.10 [facility] Comment on above: Performed By: #### C BCMAN ####[facility] Clzkeaavrb7160 [place] [phone]. Yiviviana Clement BASOM % 0.0 % Critically low 0.2-2.0 [facility] Comment on above: Performed By: #### C BCMAN ####[facility] Zoockmlsth7757 [place] [address]Dr. Yiviviana Clement BLAST # Normal [facility] Comment on above: Performed By: #### C BCMAN ####[facility] Xitcascnji1287 [place] [address]Dr. Yiviviana Clement BLAST % Normal [facility] Comment on above: Performed By: #### C BCMAN ####[facility] Nwyrqytckc2977 [place] [address]Dr. Abiel Clement CORRECTED WBC Normal 4.0-11.0 The [facility] Comment on above: Performed By: #### C BCMAN ####[facility] Viddmvbxng9210 [place] [address]Dr. Yiviviana Clement EOS # 0.00 103/ul Normal 0.00-0.70 [facility] Comment on above: Performed By: #### C BCMAN ####[facility] Tdvoigmqav[address] [place], [place] [address]Dr. Abiel Clement EOS% 0.0 % Critically low 0.9-7.0 [facility] Comment on above: Performed By: #### C BCMAN ####[facility] Eyffgyukik6606 [place] [address]Dr. Yiviviana Clement HCT 38.5 % Normal 36.0-48.0 [facility] Comment on above: Performed By: #### C ALVINO ####[facility] Rezbeczhgo1631 [place], [place] [address]Xj. Abiel Clement HGB 12.5 g/dl Normal 12.0-16.0 [facility] Comment on above: Performed By: #### C ALVINO ####[facility] Hgztpmmahe6829 [place], [place] [address]Qr. Abiel Clement LYMPHM # 0.13 103/ul Critically low 1.20-3.80 [facility] Comment on above: Performed By: #### C ALVINO ####[facility] Mozbjgosgu3946 [place] [phone]. Abiel Clement LYMPHM% 1.0 % Critically low 20.5-60.0 [facility] Comment on above: Performed By: #### C ALVINO ####[facility] Jtgavbfpwt6062 [place] [phone]. Abiel Clement MCH 29.3 pg Normal 26.7-34.0 [facility] Comment on above: Performed By: #### C ALVINO ####[facility] Tbvymbftob0253 [place] [phone]. Abiel Clement MCHC 32.5 g/dl Normal 29.9-35.2 [facility] Comment on above: Performed By: #### C ALVINO ####[facility] Ehjqbrifvb2874 [place] [phone]. Abiel Clement MCV 90.4 fL Normal 81.0-99.0 [facility] Comment on above: Performed By: #### C ALVINO ####[facility] Hvuswrdipc6632 [place], [place] [address]Fw. Abiel Clement METAMYELOCYTE # Normal [facility] Comment on above: Performed By: #### C ALVINO ####[facility] Ipyzxmslur3470 [place], [place] [address]Cs. Abiel Clement METAMYELOCYTE % Normal [facility] Comment on above: Performed By: #### C ALVINO ####[facility] Wravtnyipr9238 [place] [phone]. Abiel Clement MONOM# 0.13 103/ul Critically low 0.30-0.80 [facility] Comment on above: Performed By: #### C ALVINO ####[facility] Whzjkbximt9838 [place] [phone]. Abiel Clement MONOM% 1.0 % Critically low 1.7-12.0 [facility] Comment on above: Performed By: #### C ALVINO ####[facility] Qnnctttsss0173 [place] [phone]. Abiel Clement MPV 10.6 fL Normal 9.5-13.5 [facility] Comment on above: Performed By: #### C ALVINO ####[facility] Xhpmwdmktu6505 [place] [phone]. Abiel Clement MYELOCYTE # Normal [facility] Comment on above: Performed By: #### C ALVINO ####[facility] Xklhbkpksd3193 [place] [phone]. Abiel Clement MYELOCYTE % Normal [facility] Comment on above: Performed By: #### C ALVINO ####[facility] Wemyokihgy1989 [place] [phone]. Abiel Clement NRBC Normal [facility] Comment on above: Performed By: #### C ALVINO ####[facility] Wzgxhmjyhl8309 [place] [phone]. Abiel Clement PLT 307 103/ul Normal 150-450 [facility] Comment on above: Result Comment: Plat elet clumps noted on diff. Automated Platelet count may be falsely decreased Performed By: #### C ALVINO ####[facility] Wyafzvsidp8260 [place] [phone]. Abiel Clement RBC 4.26 106/ul Normal 4.20-5.40 [facility] Comment on above: Performed By: #### C ALVINO ####[facility] Jcecraabdk2031 [place] [phone]. Abiel Clement RDW 13.3 % Normal 11.0-15.0 [facility] Comment on above: Performed By: #### C BCMAN ####[facility] Bxfaczvzun5749 [place], [place] [address]Bg. Abiel Clement SEG # 11.68 103/ul Critically high 1.40-6.[address] [facility] Comment on above: Performed By: #### C BCMAN ####[facility] Udvxwbjmay6840 [place], [place] [address]Rj. Abiel Clement SEG % 92.0 % Critically high 43.0-75.0 [facility] Comment on above: Performed By: #### C BCMAN ####[facility] Filhadbbfj2254 [place], [place] [address]Hd. Abiel Clement WBC 12.7 103/ul Critically high 4.0-11.0 [facility] Comment on above: Performed By: #### C BCMAN ####[facility] Ewlnkjbpbs6433 [place], [place] [address]Qo. Abiel Clement CTA CHEST WO W CONon 022 CTA CHEST WO W CON Normal [facility] CULTURE BLOODon 03-13-2022 Microscopic examination of blood, culture Culture Observations: NO GROWTH AT 5 DAYS. Normal [facility] Comment on above: Performed By: #### B LDCX2 ####[facility] Okbehspctx6063 [place], [place] [address]Ya. Abiel Clement Microscopic examination of blood, culture Culture Observations: NO GROWTH AT 5 DAYS. Normal [facility] Comment on above: Performed By: #### B LDCX1 ####[facility] Zadhroledo4164 [place] [id number]. Abiel Clement Covid-19 PCR (CVDTBH)on SARS-CoV-2 (COVID-19) RNA CLARIBEL+probe Ql (Unsp spec) Not detected Normal NOT DETECTED [facility] Comment on above: Result Comment: [...] for this test is supported by the [place] of Health and Human Service's declaration that [...] be used). Performed By: #### C VDTBH ####[facility] Srqxavrxbg[address] [place], [place] [address]Dr. Abiel Clement D-DIMERon 03-13-2022 D-DIMER 2.68 mg/L FEU Critically high <=0.59 [facility] Comment on above: Performed By: #### D DIM ####[facility] Buipqgumgc[address] [place], [place] [address]Dr. Abiel Clement D-DIMER COMMENTS SEE BELOW Normal [facility] Comment on above: Result Comment: Incr [...] generalized hospitalization. Performed By: #### D DIM ####[facility] Nzsjfdtrau[address] [place], [place] [address]Dr. Abiel Clement LACTATE/LACTIC ACIDon 2021 Lactate [Moles/Vol] 1.6 mmol/L Normal 0.4-1.9 [facility] Comment on above: Performed By: #### L ACT ####[facility] Hdizubfnxn0380 [place] [id number]. Abiel Clement Lactate [Moles/Vol] 2.0 mmol/L Critically high 0.4-1.9 [facility] Comment on above: Performed By: #### L ACT ####[facility] Xpebzaymsx6150 [place] [address]Dr. Abiel Urbano POINT OF CARE GLUCOSEon Glucose [Mass/Vol] 359 mg/dL Critically high 74-106 [facility] Comment on above: Performed By: #### P OCGLUC ####[facility] Evnbhtzprp0276 [place] [address]Dr. Abiel Clement Glucose [Mass/Vol] 428 mg/dL Critically high 74-106 [facility] Comment on above: Performed By: #### P OCGLUC ####[facility] Mnhgpheuue2303 [place] [address]Dr. Suyapaviviana Clement Glucose [Mass/Vol] 461 mg/dL Critically high 74-106 [facility] Comment on above: Performed By: #### P OCGLUC ####[facility] Vzacwtyatx78[address] [place], [place] [address]Dr. Abiel Clement Glucose [Mass/Vol] 494 mg/dL Critically high 74-106 [facility] Comment on above: Performed By: #### P OCGLUC ####[facility] Lnftcdckhh[address] [place], [place] [address]Dr. Abiel Clement PROF 14(COMP METB)on 022 Albumin [Mass/Vol] 2.4 g/dL Critically low 3.4-5.0 [facility] Comment on above: Performed By: #### C MP, BNP ####[facility] Hxpkpabqhg0086 [place] [address]Dr. Abiel Clement Albumin/Globulin [Mass ratio] 0.6 {ratio} Normal [facility] Comment on above: Performed By: #### C MP, BNP ####[facility] Lhdsubgtrs64[address] [place], [place] [address]Dr. Abiel Clement ALP [Catalytic activity/Vol] 128 U/L Critically high 46-116 [facility] Comment on above: Performed By: #### C MP, BNP ####[facility] Nfwaytptlg88[address] [place], [place] [address]Dr. Abiel Clement ALT [Catalytic activity/Vol] 17 U/L Normal 14-59 [facility] Comment on above: Performed By: #### C MP, BNP ####[facility] Rohfkqtkdw8180[address] [place], [place] [address]Dr. Abiel Clement Anion gap [Moles/Vol] 13.9 mmol/L Normal [facility] Comment on above: Performed By: #### C MP, BNP ####[facility] Vtxqxgcumw9[address] [place], [place] [address]Dr. Abiel Clement AST [Catalytic activity/Vol] 26 U/L Normal 15-37 [facility] Comment on above: Performed By: #### C MP, BNP ####[facility] Mjrultkxji2089[address] [place], [place] [address]Dr. Abiel Clement Bilirubin [Mass/Vol] 0.5 mg/dL Normal 0.2-1.0 [facility] Comment on above: Performed By: #### C MP, BNP ####[facility] Brvhhzziyv5899[address] [place], [place] [address]Dr. Abiel Clement Calcium [Mass/Vol] 8.3 mg/dL Critically low 8.5-10.1 [facility] Comment on above: Performed By: #### C MP, BNP ####[facility] Hsvunqfnkl[address] [place], [place] [address]Dr. Abiel Clement Chloride [Moles/Vol] 99 mmol/L Normal 98-107 [facility] Comment on above: Performed By: #### C MP, BNP ####[facility] Uavrfqzrkh7[address] [place], [place] [address]Dr. Abiel Clement CO2 [Moles/Vol] 23.4 mmol/L Normal 21.0-32.0 [facility] Comment on above: Performed By: #### C MP, BNP ####[facility] Wxslsiudwi2524[address] [place], [place] [address]Dr. Abiel Clement Creatinine [Mass/Vol] 1.19 mg/dL Critically high 0.55-1.02 [facility] Comment on above: Performed By: #### C MP, BNP ####[facility] Aooypfiqyi8025 [place] [address]Dr. Abiel Clement EGFR-AF DANISH 56 mL/min/1.73m2 Critically low >=60 [facility] Comment on above: Performed By: #### C MP, BNP ####[facility] Woohulgotd53[address] [place], [place] [address]Dr. Abiel Clement EGFR-NON AF DANISH 46 mL/min/1.73m2 Critically low >=60 [facility] Comment on above: Performed By: #### C MP, BNP ####[facility] Plxocyoaln65[address] [place], [place] [address]Dr. Abiel Clement Globulin (S) [Mass/Vol] 3.7 g/dL Normal [facility] Comment on above: Performed By: #### C MP, BNP ####[facility] Aoxkdmoofj56[address] [place], [place] [address]Dr. Abiel Clement Glucose [Mass/Vol] 447 mg/dL Critically high 74-106 [facility] Comment on above: Performed By: #### C MP, BNP ####[facility] Yxlxyxxlgu4[address] [place], [place] [address]Dr. Abiel Clement Potassium [Moles/Vol] 5.3 mmol/L Critically high 3.5-5.1 [facility] Comment on above: Performed By: #### C MP, BNP ####[facility] Gogsoawamh[address] [place], [place] [address]Dr. Abiel Clement Protein [Mass/Vol] 6.1 g/dL Critically low 6.4-8.2 [facility] Comment on above: Performed By: #### C MP, BNP ####[facility] Vhuseedzuc[address] [place], [place] [address]Dr. Abiel Clement Sodium [Moles/Vol] 131 mmol/L Critically low 136-145 [facility] Comment on above: Performed By: #### C MP, BNP ####[facility] Mukzmhevug[address] [place], [place] [address]Dr. Abiel Clement Urea nitrogen [Mass/Vol] 36.0 mg/dL Critically high 7.0-18.0 [facility] Comment on above: Performed By: #### C MP, BNP ####[facility] Ruobpseqfi2346 [place] [id number]. Abiel Clement Urea nitrogen/Creatinine [Mass ratio] 30.3 mg/mg Normal [facility] Comment on above: Performed By: #### C MP, BNP ####[facility] Ldknrgoqvg6085 [place] [phone]. Suyapaviviana Urbano Albumin [Mass/Vol] 3.1 g/dL Critically low 3.4-5.0 [facility] Comment on above: Performed By: #### B EDUCATION PROGRAM SPECIALIST, CMP ####[facility] Iecivqwkjq0897 [place] [address]Dr. Abiel Clement Albumin/Globulin [Mass ratio] 0.7 {ratio} Normal [facility] Comment on above: Performed By: #### B EDUCATION PROGRAM SPECIALIST, CMP ####[facility] Eglvuqghee7[address] [place], [place] [address]Dr. Abiel Clement ALP [Catalytic activity/Vol] 161 U/L Critically high 46-116 [facility] Comment on above: Performed By: #### B EDUCATION PROGRAM SPECIALIST, CMP ####[facility] Tvxvieeoqw[address] [place], [place] [address]Dr. Abiel Urbano ALT [Catalytic activity/Vol] 22 U/L Normal 14-59 [facility] Comment on above: Performed By: #### B EDUCATION PROGRAM SPECIALIST, CMP ####[facility] Wlsrnfwkjq9264 [place] [phone]. Abiel Clement Anion gap [Moles/Vol] 13.5 mmol/L Normal [facility] Comment on above: Performed By: #### B EDUCATION PROGRAM SPECIALIST, CMP ####[facility] Nadlqlvveh1132 [place] [phone]. Suyapaviviana Urbano AST [Catalytic activity/Vol] 41 U/L Critically high 15-37 [facility] Comment on above: Performed By: #### B EDUCATION PROGRAM SPECIALIST, CMP ####[facility] Wnsdakrtox8402 [place] [address]Dr. Abiel Clement Bilirubin [Mass/Vol] 0.5 mg/dL Normal 0.2-1.0 [facility] Comment on above: Performed By: #### B EDUCATION PROGRAM SPECIALIST, CMP ####[facility] Luslguwtax3787 [place] [phone]. Abiel Clement Calcium [Mass/Vol] 9.4 mg/dL Normal 8.5-10.1 [facility] Comment on above: Performed By: #### B EDUCATION PROGRAM SPECIALIST, CMP ####[facility] Cpklggmmmm4081 [place] [phone]. Abiel Clement Chloride [Moles/Vol] 98 mmol/L Normal 98-107 [facility] Comment on above: Performed By: #### B EDUCATION PROGRAM SPECIALIST, CMP ####[facility] Idjalesaeo5549 [place] [phone]. Abiel Clement CO2 [Moles/Vol] 27.0 mmol/L Normal 21.0-32.0 [facility] Comment on above: Performed By: #### B EDUCATION PROGRAM SPECIALIST, CMP ####[facility] Pqvnbebgjf[address] [place], [place] [address]Dr. Abiel Clement Creatinine [Mass/Vol] 1.08 mg/dL Critically high 0.55-1.02 [facility] Comment on above: Performed By: #### B EDUCATION PROGRAM SPECIALIST, CMP ####[facility] Tgfilzmxds8137[address] [place], [place] [address]Dr. Abiel Clement EGFR-AF DANISH >60 Normal >=60 [facility] Comment on above: Performed By: #### B EDUCATION PROGRAM SPECIALIST, CMP ####[facility] Vsegsrgtab8[address] [place], [place] [address]Dr. Abiel Clement EGFR-NON AF DANISH 51 mL/min/1.73m2 Critically low >=60 [facility] Comment on above: Performed By: #### B EDUCATION PROGRAM SPECIALIST, CMP ####[facility] Cmxofwnrpe8705 [place] [phone]. Abiel Clement Globulin (S) [Mass/Vol] 4.2 g/dL Normal [facility] Comment on above: Performed By: #### B EDUCATION PROGRAM SPECIALIST, CMP ####[facility] Iyjkqvimfz0035 [place] [address]Dr. Abiel Ubrano Glucose [Mass/Vol] 173 mg/dL Critically high 74-106 [facility] Comment on above: Performed By: #### B EDUCATION PROGRAM SPECIALIST, CMP ####[facility] Voysbaobfq4153 [place] [address]Dr. Abiel Clement Potassium [Moles/Vol] 4.5 mmol/L Normal 3.5-5.1 [facility] Comment on above: Performed By: #### B EDUCATION PROGRAM SPECIALIST, CMP ####[facility] Hbrjwinlgl8650 [place] [address]Dr. Abiel Clement Protein [Mass/Vol] 7.3 g/dL Normal 6.4-8.2 [facility] Comment on above: Performed By: #### B EDUCATION PROGRAM SPECIALIST, CMP ####[facility] Gooiabnlby2957 [place] [address]Dr. Abiel Clement Sodium [Moles/Vol] 134 mmol/L Critically low 136-145 [facility] Comment on above: Performed By: #### B EDUCATION PROGRAM SPECIALIST, CMP ####[facility] Khguisrldb60[address] [place], [place] [address]Dr. Abiel Clement Urea nitrogen [Mass/Vol] 37.0 mg/dL Critically high 7.0-18.0 [facility] Comment on above: Performed By: #### B EDUCATION PROGRAM SPECIALIST, CMP ####[facility] Aijzjynewt4[address] [place], [place] [address]Dr. Abiel Clement Urea nitrogen/Creatinine [Mass ratio] 34.3 mg/mg Normal [facility] Comment on above: Performed By: #### B EDUCATION PROGRAM SPECIALIST, CMP ####[facility] Vwyvydxnxu4[address] [place], [place] [address]Dr. Abiel Clement XR ANKLE RT MIN 3 VIEWSon XR ANKLE RT MIN 3 VIEWS Normal [facility] XR CHEST 1 Von 03-13-2022 XR CHEST 1 V Normal [facility] XR FOOT RT MIN 3 VIEWSon XR FOOT RT MIN 3 VIEWS Normal [facility] CBC AUTO DIFFon 03-12-2022 BASO # 0.1 103/ul Normal 0.0-0.1 [facility] Comment on above: Performed By: #### C BC ####[facility] Otccibwtir15[address] [place], [place] [address]Dr. Abiel Clement Basophils/100 WBC (Bld) 0.7 % Normal 0.2-2.0 [facility] Comment on above: Performed By: #### C BC ####[facility] Ygtsybpaoa6484 [place] [address]Dr. Abiel Clement EO # 0.2 103/ul Normal 0.0-0.7 [facility] Comment on above: Performed By: #### C BC ####[facility] Igqkhwamhr1667[address] [place], [place] [address]Dr. Abiel Clement Eosinophils/100 WBC (Bld) 2.1 % Normal 0.9-7.0 [facility] Comment on above: Performed By: #### C BC ####[facility] Ifqjydbaak7[address] [place], [place] [address]Dr. Abiel Clement Erythrocyte distribution width (RBC) [Ratio] 13.1 % Normal 11.0-15.0 [facility] Comment on above: Performed By: #### C BC ####[facility] Nkbenxxsdu3425[address] [place], [place] [address]Dr. Abiel Clement Hematocrit (Bld) [Volume fraction] 33.9 % Critically low 36.0-48.0 [facility] Comment on above: Performed By: #### C BC ####[facility] Capdpgtcby9216[address] [place], [place] [address]Dr. Abiel Clement Hemoglobin (Bld) [Mass/Vol] 11.0 g/dL Critically low 12.0-16.0 [facility] Comment on above: Performed By: #### C BC ####[facility] Usbhjljggw12[address] [place], [place] [address]Dr. Abiel Clement IG # 0.04 10e3/ul Critically high 0.00-0.03 The [facility] Comment on above: Performed By: #### C BC ####[facility] Tuazyxhhnw30[address] [place], [place] [address]Dr. Abiel Clement IG % 0.4 % Normal 0.0-0.5 [facility] Comment on above: Performed By: #### C BC ####[facility] Oeyxzntspf6014 [place] [phone]. Suyapaviviana Clement LYMPH # 2.0 103/ul Normal 1.2-3.8 [facility] Comment on above: Performed By: #### C BC ####[facility] Dllsltheti9635 [place] [phone]. Suyapaviviana Clement Lymphocytes/100 WBC (Bld) 20.0 % Critically low 20.5-60.0 [facility] Comment on above: Performed By: #### C BC ####[facility] Sbqbgojgno0325 [place] [address]Dr. Suyapaviviana Clement MANUAL DIFF REQ NO Normal [facility] Comment on above: Performed By: #### C BC ####[facility] Rqgkkbmgke8073 [place] [address]Dr. Suyapaviviana Clement MCH (RBC) [Entitic mass] 29.5 pg Normal 26.7-34.0 [facility] Comment on above: Performed By: #### C BC ####[facility] Tpbtgyodmi6[address] [place], [place] [address]Dr. Suyapaivviana Clement MCHC (RBC) [Mass/Vol] 32.4 g/dL Normal 29.9-35.2 [facility] Comment on above: Performed By: #### C BC ####[facility] Zzzghophhk0729 [place] [address]Dr. Abiel Clement MCV (RBC) [Entitic vol] 90.9 fL Normal 81.0-99.0 [facility] Comment on above: Performed By: #### C BC ####[facility] Aqbkvrrnld8818 [place] [phone]. Abiel Clement MONO # 1.0 103/ul Critically high 0.3-0.8 [facility] Comment on above: Performed By: #### C BC ####[facility] Lmhnukufqd4925 [place] [address]Dr. Abiel Clement Monocytes/100 WBC (Bld) 10.3 % Normal 1.7-12.0 [facility] Comment on above: Performed By: #### C BC ####[facility] Aukhyeacbt9786 [place] [phone]. Abiel Clement NEUT # 6.5 103/ul Normal 1.4-6.5 [facility] Comment on above: Performed By: #### C BC ####[facility] Uzxwcpjyex3061 [place] [phone]. Abiel Clement Neutrophils/100 WBC (Bld) 66.5 % Normal 43.0-75.0 [facility] Comment on above: Performed By: #### C BC ####[facility] Hnqfrxwrmm4977 [place] [phone]. Abiel Clement Platelet mean volume (Bld) [Entitic vol] 10.8 fL Normal 9.5-13.5 [facility] Comment on above: Performed By: #### C BC ####[facility] Zhrdvdiuku4808 [place] [phone]. Abiel Urbano PLT 278 103/ul Normal 150-450 [facility] Comment on above: Performed By: #### C BC ####[facility] Wofrrtentr3535 [place] [phone]. Abiel Clement RBC 3.73 106/ul Critically low 4.20-5.40 [facility] Comment on above: Performed By: #### C BC ####[facility] Oawalcvypw1370 [place] [phone]. Abiel Clement WBC 9.7 103/ul Normal 4.0-11.0 [facility] Comment on above: Performed By: #### C BC ####[facility] Qidavuqxft3632 [place] [phone]. Suyapaviviana Clement PROF CHEM 8 (BAS METB)on Anion gap [Moles/Vol] 11.5 mmol/L Normal [facility] Comment on above: Performed By: #### B MP ####[facility] Wojibjunbr3010 [place] [phone]. Suyapaviviana Clement Calcium [Mass/Vol] 8.9 mg/dL Normal 8.5-10.1 [facility] Comment on above: Performed By: #### B MP ####[facility] Oghxyzvwia4978 [place] [phone]. Abiel Clement Chloride [Moles/Vol] 102 mmol/L Normal 98-107 [facility] Comment on above: Performed By: #### B MP ####[facility] Kgbknmnqrc1489 [place] [address]Dr. Abiel Clement CO2 [Moles/Vol] 28.4 mmol/L Normal 21.0-32.0 [facility] Comment on above: Performed By: #### B MP ####[facility] Cmwtfqlivd0037 [place] [address]Dr. Abiel Clement Creatinine [Mass/Vol] 1.10 mg/dL Critically high 0.55-1.02 [facility] Comment on above: Performed By: #### B MP ####[facility] Glavxldpqr3299 [place] [address]Dr. Suyapaviviana Urbano EGFR-AF DANISH >60 Normal >=60 [facility] Comment on above: Performed By: #### B MP ####[facility] Fkpvwskgvf2955 [place] [address]Dr. Abiel Urbano EGFR-NON AF DANISH 50 mL/min/1.73m2 Critically low >=60 [facility] Comment on above: Performed By: #### B MP ####[facility] Urlpummapx4340 [place] [address]Dr. Abiel Clement Glucose [Mass/Vol] 106 mg/dL Normal 74-106 The [facility] Comment on above: Performed By: #### B MP ####[facility] Fiuddxkdos1878 [place] [address]Dr. Abiel Clement Potassium [Moles/Vol] 3.9 mmol/L Normal 3.5-5.1 [facility] Comment on above: Performed By: #### B MP ####[facility] Agcihetsfa0918 [place] [address]Dr. Suyapaviviana Clement Sodium [Moles/Vol] 138 mmol/L Normal 136-145 [facility] Comment on above: Performed By: #### B MP ####[facility] Hqyfxhvpui[address] [place], [place] [address]Dr. Abiel Clement Urea nitrogen [Mass/Vol] 38.0 mg/dL Critically high 7.0-18.0 [facility] Comment on above: Performed By: #### B MP ####[facility] Fxitniilup0073 [place] [address]Dr. Abiel Clement Urea nitrogen/Creatinine [Mass ratio] 34.5 mg/mg Normal [facility] Comment on above: Performed By: #### B MP ####[facility] Shjpwxehzp4639[address] [place], [place] [address]Dr. Abiel Clement XR FOOT LT MIN 3 VIEWSon XR FOOT LT MIN 3 VIEWS Normal [facility] POINT OF CARE GLUCOSEon Glucose [Mass/Vol] 389 mg/dL Critically high 74-106 [facility] Comment on above: Performed By: #### P OCGLUC ####[facility] Gpkrpfeppw38[address] [place], [place] [address]Dr. Abiel Clement Glucose [Mass/Vol] 414 mg/dL Critically high 74-106 [facility] Comment on above: Performed By: #### P OCGLUC ####[facility] Fmwekipxws519[address] [place], [place] [address]Dr. Abiel Clement Glucose [Mass/Vol] 295 mg/dL Critically high [facility]106 [facility] Comment on above: Performed By: #### P OCGLUC ####[facility] Dwwwwuxmgy5344[address] [place], [place] [address]Dr. Abiel Clement Glucose [Mass/Vol] 323 mg/dL Critically high -106 [facility] Comment on above: Performed By: #### P OCGLUC ####[facility] Xcukrrkzda230[address] [place], [place] [address]Dr. Abiel Clement Covid-19 PCR ([facility])on SARS-CoV-2 (COVID-19) RNA CLARIBEL+probe Ql (Unsp spec) Not detected Normal NOT DETECTED [facility] Comment on above: Result Comment: [...] for this test is supported by the [place] of Health and Human Service's declaration that [...] longer be used). Performed By: #### C [facility] ####[facility] Didouqtfgb[address] [place], [place] [address]Dr. Suyapaviviana Clement CBC AUTO DIFFon 03-01-2022 BASO # 0.1 103/ul Normal 0.0-0.1 [facility] Comment on above: Performed By: #### C BC ####[facility] Xrvslevjxu1189[address] [place], [place] [address]Dr. Suyapaviviana Clement Basophils/100 WBC (Bld) 0.7 % Normal 0.2-2.0 [facility] Comment on above: Performed By: #### C BC ####[facility] Mbafcoskqk7975[address] [place], [place] [address]Dr. Abiel Clement EO # 0.2 103/ul Normal 0.0-0.7 [facility] Comment on above: Performed By: #### C BC ####[facility] Qwxmlgwrot9040[address] [place], [place] [address]Dr. Abiel Clement Eosinophils/100 WBC (Bld) 2.6 % Normal 0.9-7.0 [facility] Comment on above: Performed By: #### C BC ####[facility] Dcsejxovmr5730[address] [place], [place] [address]Dr. Abiel Clement Erythrocyte distribution width (RBC) [Ratio] 13.2 % Normal 11.0-15.0 [facility] Comment on above: Performed By: #### C BC ####[facility] Vqzoakyesb2307 [place] [address]Dr. Abiel Clement Hematocrit (Bld) [Volume fraction] 42.4 % Normal 36.0-48.0 [facility] Comment on above: Performed By: #### C BC ####[facility] Ngwruweizd4511 [place] [address]Dr. Abiel Clement Hemoglobin (Bld) [Mass/Vol] 13.9 g/dL Normal 12.0-16.0 [facility] Comment on above: Performed By: #### C BC ####[facility] Qtwcdfdnnl8[address] [place], [place] [address]Dr. Abiel Clement IG # 0.02 10e3/ul Normal 0.00-0.03 [facility] Comment on above: Performed By: #### C BC ####[facility] Okfgljxprz6387[address] [place], [place] [address]Dr. Abiel Clement IG % 0.3 % Normal 0.0-0.5 [facility] Comment on above: Performed By: #### C BC ####[facility] Adbqmksfwp249[address] [place], [place] [address]Dr. Abiel Clement LYMPH # 1.8 103/ul Normal 1.2-3.8 [facility] Comment on above: Performed By: #### C BC ####[facility] Ikftoduxhx2968[address] [place], [place] [address]Dr. Abiel Clement Lymphocytes/100 WBC (Bld) 24.1 % Normal 20.5-60.0 [facility] Comment on above: Performed By: #### C BC ####[facility] Dkbtruysfv206[address] [place], [place] [address]Dr. Abiel Clement MANUAL DIFF REQ NO Normal [facility] Comment on above: Performed By: #### C BC ####[facility] Wvrsvtkqym[address] [place], [place] [address]Dr. Abiel Clement MCH (RBC) [Entitic mass] 29.4 pg Normal 26.7-34.0 [facility] Comment on above: Performed By: #### C BC ####[facility] Bcrjvogrbf2588 [place] [phone]. Abiel Clement MCHC (RBC) [Mass/Vol] 32.8 g/dL Normal 29.9-35.2 [facility] Comment on above: Performed By: #### C BC ####[facility] Jzxmtezyha5127 [place] [phone]. Abiel Clement MCV (RBC) [Entitic vol] 89.8 fL Normal 81.0-99.0 [facility] Comment on above: Performed By: #### C BC ####[facility] Fgwncqqxtz6014 [place] [phone]. Abiel Clement MONO # 0.7 103/ul Normal 0.3-0.8 [facility] Comment on above: Performed By: #### C BC ####[facility] Mqcdwyrjuc2037 [place] [phone]. Suyapaviviana Clement Monocytes/100 WBC (Bld) 9.2 % Normal 1.7-12.0 [facility] Comment on above: Performed By: #### C BC ####[facility] Iiuzlstdds8804 [place] [phone]. Abiel Clement NEUT # 4.6 103/ul Normal 1.4-6.5 [facility] Comment on above: Performed By: #### C BC ####[facility] Lkjyyaondi7845 [place] [phone]. Abiel Urbano Neutrophils/100 WBC (Bld) 63.1 % Normal 43.0-75.0 [facility] Comment on above: Performed By: #### C BC ####[facility] Auwqhxqzyp0981 [place] [phone]. Abiel Clement Platelet mean volume (Bld) [Entitic vol] 11.4 fL Normal 9.5-13.5 [facility] Comment on above: Performed By: #### C BC ####[facility] Ggpvyzlwuk4004 [place] [phone]. Abiel Urbano PLT 309 103/ul Normal 150-450 [facility] Comment on above: Performed By: #### C BC ####[facility] Fqelzpnryb7672 [place] [phone]. Suyapaviviana Urbano RBC 4.72 106/ul Normal 4.20-5.40 [facility] Comment on above: Performed By: #### C BC ####[facility] Urjrfrnecr8565 [place] [address]Dr. Suyapaviviana Urbano WBC 7.3 103/ul Normal 4.0-11.0 [facility] Comment on above: Performed By: #### C BC ####[facility] Cexrxdbixr6339 [place] [address]Dr. Abiel Clement PROF CHEM 8 (BAS METB)on Anion gap [Moles/Vol] 12.2 mmol/L Normal [facility] Comment on above: Performed By: #### B MP ####[facility] Lojzkhfbfg0171 [place] [address]Dr. Abiel Clement Calcium [Mass/Vol] 9.2 mg/dL Normal 8.5-10.1 [facility] Comment on above: Performed By: #### B MP ####[facility] Kdjvbpktwt9567 [place] [address]Dr. Abiel Clement Chloride [Moles/Vol] 102 mmol/L Normal 98-107 [facility] Comment on above: Performed By: #### B MP ####[facility] Qwliqebxqv9165 [place] [address]Dr. Abiel Clement CO2 [Moles/Vol] 26.9 mmol/L Normal 21.0-32.0 [facility] Comment on above: Performed By: #### B MP ####[facility] Rnrkunoiky8045 [place] [address]Dr. Abiel Clement Creatinine [Mass/Vol] 0.99 mg/dL Normal 0.55-1.02 [facility] Comment on above: Performed By: #### B MP ####[facility] Skwvtgetdg7400 [place] [address]Dr. Abiel Clement EGFR-AF DANISH >=60 Normal >=60 [facility] Comment on above: Performed By: #### B MP ####[facility] Kyshqmpsmo6550 [place] [phone]. Abiel Urbano EGFR-NON AF DANISH 57 mL/min/1.73m2 Critically low >=60 [facility] Comment on above: Performed By: #### B MP ####[facility] Uuoupwxptb9236 [place] [phone]. Suyapaviviana Urbano Glucose [Mass/Vol] 103 mg/dL Normal 74-106 [facility] Comment on above: Performed By: #### B MP ####[facility] Hxfcduiomg4324 [place] [phone]. Abiel Clement Potassium [Moles/Vol] 4.1 mmol/L Normal 3.5-5.1 [facility] Comment on above: Performed By: #### B MP ####[facility] Zuxdwdsgok5502 [place] [address]Dr. Abiel Clement Sodium [Moles/Vol] 137 mmol/L Normal 136-145 [facility] Comment on above: Performed By: #### B MP ####[facility] Rdreemmvgl4394 [place] [phone]. Abiel Clement Urea nitrogen [Mass/Vol] 27.0 mg/dL Critically high 7.0-18.0 [facility] Comment on above: Performed By: #### B MP ####[facility] Jzvzurfweo4113 [place] [phone]. Abiel Clement Urea nitrogen/Creatinine [Mass ratio] 27.3 mg/mg Normal [facility] Comment on above: Performed By: #### B MP ####[facility] Dhzyewaxus4050 [place] [phone]. Abiel Clement PROTIMEon 03-01-2022 INR Coag (PPP) [Relative time] 0.97 {INR} Normal [facility] Comment on above: Performed By: #### P TT, PT ####[facility] Ysbxfczsml2115 [place] [phone]. Abiel Clement INR GUIDELINES SEE BELOW Normal [facility] Comment on above: Result Comment: GELY RED INR: 2.0 - 3.0 CONDITIONS NOT LISTED BELOW 2.5 - 3.5 FOR PROSTHETIC HEART VALVE REPLACEMENT 2.5 - 3.5 RECURRENT THROMBOSIS Performed By: #### P TT, PT ####[facility] Pomzjixvcv2627 [place] [address]Dr. Abiel Urbano PT Coag (PPP) [Time] 10.5 s Normal 9.0-11.6 [facility] Comment on above: Performed By: #### P TT, PT ####[facility] Avkqhnwlcw5362 [place] [address]Dr. Abiel Celment PTTon 03-01-2022 aPTT Coag (Bld) [Time] 24.8 s Normal 22.3-36.2 [facility] Comment on above: Performed By: #### P TT, PT ####[facility] Xbhuashouk[address] [place], [place] [address]Dr. Abiel Clement US CAROTID ART BILon 022 US CAROTID ART VIC Normal [facility] XR FOOT VIC MIN 3 VIEWSon XR FOOT VIC MIN 3 VIEWS Normal [facility] AMYLASEon 11-03-2021 Amylase [Catalytic activity/Vol] 66 U/L Normal 31-110 [facility] Comment on above: Performed By: #### C MPBENNY LIPA ####[facility] Orvgkpemno74[address] [place], [place] [address]Dr. Abiel Clement CBC AUTO DIFFon 11-03-2021 BASO # 0.1 103/ul Normal 0.0-0.1 [facility] Comment on above: Performed By: #### C BC ####[facility] Fnotcbreii[address] [place], [place] [address]Dr. Abiel Clement Basophils/100 WBC (Bld) 1.1 % Normal 0.2-2.0 [facility] Comment on above: Performed By: #### C BC ####[facility] Fegagyyixj10[address] [place], [place] [address]Dr. Abiel Clement EO # 0.1 103/ul Normal 0.0-0.7 [facility] Comment on above: Performed By: #### C BC ####[facility] Mlxsprjimx4595 [place] [address]Dr. Abiel Clement Eosinophils/100 WBC (Bld) 2.5 % Normal 0.9-7.0 [facility] Comment on above: Performed By: #### C BC ####[facility] [address] [place], [place] [address]Dr. Abiel Clement Erythrocyte distribution width (RBC) [Ratio] 14.6 % Normal 11.0-15.0 [facility] Comment on above: Performed By: #### C BC ####[facility] Hstiwqywfr[address] [place], [place] [address]Dr. Abiel Clement Hematocrit (Bld) [Volume fraction] 47.4 % Normal 36.0-48.0 [facility] Comment on above: Performed By: #### C BC ####[facility] Wellmryrki[address] [place], [place] [address]Dr. Abiel Clement Hemoglobin (Bld) [Mass/Vol] 15.4 g/dL Normal 12.0-16.0 [facility] Comment on above: Performed By: #### C BC ####[facility] [address]ueyj[address]ac[address] [place], [place] [address]Dr. Abiel Clement IG # 0.01 10e3/ul Normal 0.00-0.03 [facility] Comment on above: Performed By: #### C BC ####[facility] Trkwvrm[address] [place], [place] [address]Dr. Abiel Clement IG % 0.2 % Normal 0.0-0.5 [facility] Comment on above: Performed By: #### C BC ####[facility] Yailbpxqff[address] [place], [place] [address]Dr. Abiel Clement LYMPH # 1.6 103/ul Normal 1.2-3.8 [facility] Comment on above: Performed By: #### C BC ####[facility] [address]pewvqhv[address] [place], [place] [address]Dr. Abiel Clement Lymphocytes/100 WBC (Bld) 27.3 % Normal 20.5-60.0 [facility] Comment on above: Performed By: #### C BC ####[facility] [address]usl[address] [place] [id number]. Abiel Clement MANUAL DIFF REQ NO Normal [facility] Comment on above: Performed By: #### C BC ####[facility] Jstjvsqrhe32[address] [place] [id number]. Abiel Clement MCH (RBC) [Entitic mass] 28.1 pg Normal 26.7-34.0 [facility] Comment on above: Performed By: #### C BC ####[facility] [address]gbra[address] [place] [address]Dr. Abiel Clement MCHC (RBC) [Mass/Vol] 32.5 g/dL Normal 29.9-35.2 [facility] Comment on above: Performed By: #### C BC ####[facility] [address]akjznbgcp[address] [place] [address]Dr. Abiel Urbano MCV (RBC) [Entitic vol] 86.5 fL Normal 81.0-99.0 [facility] Comment on above: Performed By: #### C BC ####[facility] Jejozviiyd[address] [place], [place] [address]Dr. Abiel Urbano MONO # 0.5 103/ul Normal 0.3-0.8 [facility] Comment on above: Performed By: #### C BC ####[facility] [address]zizpxwu[address] [place], [place] [address]Dr. Suyapaviviana Clement Monocytes/100 WBC (Bld) 8.5 % Normal 1.7-12.0 [facility] Comment on above: Performed By: #### C BC ####[facility] Mugxyjvcnl[address] [place], [place] [address]Dr. Abiel Clement NEUT # 3.4 103/ul Normal 1.4-6.5 [facility] Comment on above: Performed By: #### C BC ####[facility] Vjpyyjhqcd[address] [place], [place] [address]Dr. Suyapaviviana Clement Neutrophils/100 WBC (Bld) 60.4 % Normal 43.0-75.0 [facility] Comment on above: Performed By: #### C BC ####[facility] [address]yjbj[address] [place] [address]Dr. Abiel Clement Platelet mean volume (Bld) [Entitic vol] 11.6 fL Normal 9.5-13.5 [facility] Comment on above: Performed By: #### C BC ####[facility] L[address]igwp[address]ai[address] [place] [address]Dr. Abiel Clement PLT 257 103/ul Normal 150-450 [facility] Comment on above: Performed By: #### C BC ####[facility] Ldlwpybqfj[address] [place] [address]Dr. Abiel Clement RBC 5.48 106/ul Critically high 4.20-5.40 [facility] Comment on above: Performed By: #### C BC ####[facility] U[address]rs[address] [place], [place] [address]Dr. Abiel Urbano WBC 5.7 103/ul Normal 4.0-11.0 [facility] Comment on above: Performed By: #### C BC ####[facility] Bsskoolpwy[address] [place], [place] [address]Dr. Suyapaviviana Clement LIPASEon 11-03-2021 Lipase [Catalytic activity/Vol] 32.0 U/L Normal 23.0-300.0 [facility] Comment on above: Performed By: #### C BENNY PEDERSEN, LIPA ####[facility] [address]tyieitsos[address] [place] [address]Dr. Abiel Clement PROF 14(COMP METB)on 022 Albumin [Mass/Vol] 3.6 g/dL Normal 3.5-5.0 [facility] Comment on above: Performed By: #### C SLAVA BENNY, LIPA ####[facility] [address]bvp[address] [place] [address]Dr. Abiel Clement Albumin/Globulin [Mass ratio] 0.8 {ratio} Normal [facility] Comment on above: Performed By: #### C SLAVA BENNY, LIPA ####[facility] Xwibvcu[address]av[address] [place] [address]Dr. Abiel Clement ALP [Catalytic activity/Vol] 325 U/L Critically high 38-126 [facility] Comment on above: Performed By: #### C MP, BENNY, LIPA ####[facility] Tqrzdng[address] [place] [address]Dr. Abiel Clement ALT [Catalytic activity/Vol] 103 U/L Critically high 9-52 [facility] Comment on above: Performed By: #### C MP, BENNY, LIPA ####[facility] Mnbbejoani[address] [place] [address]Dr. Abiel Clement Anion gap [Moles/Vol] 13.1 mmol/L Normal [facility] Comment on above: Performed By: #### C MP, BENNY, LIPA ####[facility] Elsjjpbdwv1202 [place] [address]Dr. Abiel Clement AST [Catalytic activity/Vol] 78 U/L Critically high 14-36 [facility] Comment on above: Performed By: #### C MP BENNY, LIPA ####[facility] Ezkhiyoozs[address] [place], [place] [address]Dr. Abiel Clement Bilirubin [Mass/Vol] 0.4 mg/dL Normal 0.2-1.3 [facility] Comment on above: Performed By: #### C MP, BENNY, LIPA ####[facility] Dwqyeyseod[address] [place], [place] [address]Dr. Abiel Clement Calcium [Mass/Vol] 9.6 mg/dL Normal 8.4-10.2 [facility] Comment on above: Performed By: #### C MP, BENNY, LIPA ####[facility] Paiepce[address] [place], [place] [address]Dr. Abiel Clement Chloride [Moles/Vol] 102 mmol/L Normal 98-107 [facility] Comment on above: Performed By: #### C MP, BENNY, LIPA ####[facility] H[address]vpgqzsnq[address] [place], [place] [address]Dr. Abiel Clement CO2 [Moles/Vol] 21.5 mmol/L Critically low 22.0-30.0 [facility] Comment on above: Performed By: #### C MP, BENNY, LIPA ####[facility] [address]dod[address] [place] [address]Dr. Abiel Clement Creatinine [Mass/Vol] 1.51 mg/dL Critically high 0.52-1.04 [facility] Comment on above: Performed By: #### C MP, BENNY, LIPA ####[facility] [address]tzgdv[address] [place] [address]Dr. Abiel Clement EGFR-AF DANISH 42 mL/min/1.73m2 Critically low >=60 [facility] Comment on above: Performed By: #### C MP, BENNY, LIPA ####[facility] Seqxgrdkzv30[address] [place] [address]Dr. Abiel Clement EGFR-NON AF DANISH 35 mL/min/1.73m2 Critically low >=60 [facility] Comment on above: Performed By: #### C MP, BENNY, LIPA ####[facility] Qagzzczzwo6565 [place] [address]Dr. Abiel Clement Globulin (S) [Mass/Vol] 4.5 g/dL Normal [facility] Comment on above: Performed By: #### C MP, BENNY, LIPA ####[facility] [address]yk[address]idha[address] [place], [place] [address]Dr. Abiel Clement Glucose [Mass/Vol] 167 mg/dL Critically high 74-106 [facility] Comment on above: Performed By: #### C MP, BENNY, LIPA ####[facility] Cq[address]vue[address] [place], [place] [address]Dr. Abiel Clement Potassium [Moles/Vol] 4.6 mmol/L Normal 3.4-5.0 [facility] Comment on above: Performed By: #### C MP, BENNY, LIPA ####[facility] [address]zx[address]jb[address] [place], [place] [address]Dr. Abiel Clement Protein [Mass/Vol] 8.1 g/dL Normal 6.1-8.2 [facility] Comment on above: Performed By: #### C MP, BENNY, LIPA ####[facility] B[address] [place], [place] [address]Dr. Abiel Clement Sodium [Moles/Vol] 132 mmol/L Critically low 137-145 Th [facility] Comment on above: Performed By: #### C BENNY PEDERSEN LIPA ####[facility] [address]qzktrwz25[address] [place] [id number]. Abiel Clement Urea nitrogen [Mass/Vol] 35.0 mg/dL Critically high 7.0-17.0 [facility] Comment on above: Performed By: #### C BENNY PEDERSEN LIPA ####[facility] [address] [place], [place] [address]Nd. Abiel Clement Urea nitrogen/Creatinine [Mass ratio] 23.2 mg/mg Normal [facility] Comment on above: Performed By: #### C BENNY PEDERSEN LIPA ####[facility] Nnbo[address]ak[address] [place] [id number]. Abiel Clement XR ABD FLAT UP_PA Tl 11-03 XR ABD FLAT UP_PA CH Normal [facility] XR FOOT LT MIN 3 VIEWSon XR FOOT LT MIN 3 VIEWS Normal [facility] COMPREHENSIVE METABOLIC PANE Neftali 09-23-2021 Albumin [Mass/Vol] 4.1 g/dL Normal 3.6-5.1 [facility] Comment on above: Performed By: #### 1 023, 2270 #### [facility] [place] [address] Head Tennis Coach: Christian Dove MD Albumin/Globulin [Mass ratio] 1.2 {ratio} Normal 1.0-2.5 [facility] Comment on above: Performed By: #### 1 023, 0 #### [facility] [address] Head Tennis Coach: Christian Dove MD ALP [Catalytic activity/Vol] 206 U/L High 37-153 [facility] Comment on above: Performed By: #### 1 023, 7600 #### [facility] [address] Head Tennis Coach: Christian Dove MD ALT [Catalytic activity/Vol] 32 U/L High 6-29 [facility] Comment on above: Result Comment: NO C OLLECTION DATE RECEIVED. WE HAVE USED THE DATE THE SPECIMEN WAS RECEIVED BY THIS LABORATORY THE COLLECTION DATE. IF THIS IS INCORRECT, PLEASE CONTACT CLIENT SERVICES. PHONE NUMBER: [phone] Performed By: #### 1 0231, 7600 #### [facility] [place] [address] Head Tennis Coach: Christian Dove MD AST [Catalytic activity/Vol] 28 U/L Normal 10-35 [facility] Comment on above: Performed By: #### 1 0231, 7600 #### [facility] [place] [address] Head Tennis Coach: Christian Dove MD Bilirubin [Mass/Vol] 0.5 mg/dL Normal 0.2-1.2 [facility] Comment on above: Performed By: #### 1 0231, 7600 #### [facility] [place] [address] Head Tennis Coach: Christian Dove MD BUN/CREATININE RATIO NOT APPLICABLE Normal 6-22 [facility] Comment on above: Performed By: #### 1 0231, 7600 #### [facility] [place] [address] Head Tennis Coach: Christian Dove MD Calcium [Mass/Vol] 9.6 mg/dL Normal 8.6-10.4 [facility] Comment on above: Performed By: #### 1 0231, 7600 #### [facility] [place] [address] Head Tennis Coach: Christian Dove MD Chloride [Moles/Vol] 101 mmol/L Normal 98-110 [facility] Comment on above: Performed By: #### 1 0231, 7600 #### [facility] [place] [address] Head Tennis Coach: Christian Dove MD CO2 [Moles/Vol] 27 mmol/L Normal 20-32 [facility] Comment on above: Performed By: #### 1 0231, 7600 #### [facility] [place] [address] Head Tennis Coach: Christian Dove MD Creatinine [Mass/Vol] 0.88 mg/dL Normal 0.50-0.[address] [facility] [address] [facility] Comment on above: Result Comment: For patients >49 years of age, the reference limit for Creatinine is approximately 13% higher for people identified as -Lithuanian. Performed By: #### 1 230, 7600 #### [facility] [address], [address] [place] [address] Head Tennis Coach: Christian Dove MD eGFR NON-AFR. DANISH 71 mL/min/1.73m2 Normal > OR = 60 [facility] Comment on above: Performed By: #### 1 230, 7600 #### [facility] [place] [address] Head Tennis Coach: Christian Dove MD GFR/1.73 sq M.predicted among blacks MDRD (S/P/Bld) [Vol rate/Area] 82 mL/min/{1.73_m2} Normal > OR = 60 [facility] Comment on above: Performed By: #### 1 230, 0 #### [facility] [place] [address] Head Tennis Coach: Christian Dove MD Globulin (S) [Mass/Vol] 3.3 g/dL Normal 1.9-3.7 [facility] Comment on above: Performed By: #### 1 230, 7600 #### [facility] [place] [address] Head Tennis Coach: Christian Dove MD Glucose [Mass/Vol] 269 mg/dL High 65-99 [facility] Comment on above: Result Comment: Fasting reference interval For someone without known diabetes, a glucose value >125 mg/dL indicates that they may have diabetes and this should be confirmed with a follow-up test. Performed By: #### 1 230, 7600 #### [facility] [address], [address] [place] [address] Head Tennis Coach: Christian Dove MD Potassium [Moles/Vol] 4.3 mmol/L Normal 3.5-5.[address] [facility] [address] [facility] Comment on above: Performed By: #### 1 0231, 7600 #### [facility] of [address], [address] [place] [address] Head Tennis Coach: Christian Dove MD Protein [Mass/Vol] 7.4 g/dL Normal 6.1-8.1 [facility] Comment on above: Performed By: #### 1 0231, 7600 #### [facility] of [place] [address] Head Tennis Coach: Christian Dove MD Sodium [Moles/Vol] 135 mmol/L Normal 135-146 [facility] Comment on above: Performed By: #### 1 023, 7600 #### [facility] of [place] [address] Head Tennis Coach: Christian Dove MD Urea nitrogen [Mass/Vol] 18 mg/dL Normal 7-25 [facility] Comment on above: Performed By: #### 1 023, 7600 #### [facility] of [place] [address] Head Tennis Coach: Christian Dove MD LIPID PANEL, [facility] 09-05 Cholesterol [Mass/Vol] 123 mg/dL Normal <200 [facility] Comment on above: Performed By: #### 1 0231, 7600 #### [facility] of [place] [address] Head Tennis Coach: Christian Dove MD Cholesterol in HDL [Mass/Vol] 36 mg/dL Low > OR = 50 [facility] Comment on above: Performed By: #### 1 0231, 7600 #### [facility] of [place] [address] Head Tennis Coach: Christian Dove MD Cholesterol in LDL [Mass/Vol] [...] Ciro PENN et al. MARIA T. 2013;310(19): 5357-7407 ([email or web address]) Performed By: #### 1 0231, 7600 #### [facility] [address], [address] [place] [address] Head Tennis Coach: Christian Dove MD Cholesterol.total/Cho lesterol in HDL [Mass ratio] 3.4 {ratio} Normal <5.0 [facility] Comment on above: Performed By: #### 1 023, 7600 #### [facility] [address], [address] [place] [address] Head Tennis Coach: Christian Dove MD NON HDL CHOLESTEROL 87 mg/dL (calc) Normal <130 [facility] Comment on above: Result Comment: For patients with diabetes plus 1 major ASCVD risk factor, treating to a non-HDL-C goal of <100 mg/dL (LDL-C of <70 mg/dL) is considered a therapeutic option. Performed By: #### 1 023, 7600 #### [facility] [address], [address] [place] [address] Head Tennis Coach: Christian Dove MD Triglyceride [Mass/Vol] 134 mg/dL Normal <150 [facility] Comment on above: Performed By: #### 1 023, 7600 #### [facility] [address], [address] [place] [address] Head Tennis Coach: Christian Dove MD COVID Quick Testingon 2020 Result Positive [employer] Other POC GLUCOSE LABon 07-14-2020 Glucose [Mass/Vol] 311 mg/dL High 70-100 [facility] Comment on above: Performed By: #### 8 3889 #### [facility] [address] [place] [address], [place] Glucose [Mass/Vol] 231 mg/dL High 70-100 [facility] Comment on above: Performed By: #### 8 5499 #### [facility] [address] [place] [address], [place] POC GLUCOSE LABon 07-13-2020 Glucose [Mass/Vol] 173 mg/dL High 70-100 [facility] Comment on above: Performed By: #### 8 5499 #### [facility] [address] [place] [address], [place] Glucose [Mass/Vol] 117 mg/dL High 70-100 [facility] Comment on above: Performed By: #### 3 1792 #### [facility] [address] [place] [address], [place] Glucose [Mass/Vol] 282 mg/dL High 70-100 [facility] Comment on above: Performed By: #### 8 5499 #### [facility] [address] [place] [address], [place] Glucose [Mass/Vol] 288 mg/dL High 70-100 [facility] Comment on above: Performed By: #### 8 5499 ####[facility] [place] [address], [place] POC GLUCOSE LABon 07-12-2020 Glucose [Mass/Vol] 281 mg/dL High 70-100 [facility] Comment on above: Performed By: #### 8 5499 ####[facility] [place] [address], [place] Glucose [Mass/Vol] 102 mg/dL High 70-100 [facility] Comment on above: Performed By: #### 8 5499 ####[facility] [place] [address], [place] Glucose [Mass/Vol] 213 mg/dL High 70-100 [facility] Comment on above: Performed By: #### 8 5499 ####[facility] [place] [address], [place] Glucose [Mass/Vol] 195 mg/dL High 70-100 [facility] Comment on above: Performed By: #### 3 1792 #### [facility] [address] [place] [address], [place] POC GLUCOSE LABon 07-11-2020 Glucose [Mass/Vol] 221 mg/dL High 70-100 [facility] Comment on above: Performed By: #### 8 5499 #### [facility] [address] [place] [address], [place] Glucose [Mass/Vol] 201 mg/dL High 70-100 [facility] Comment on above: Performed By: #### 0 0071, 80514 #### [facility] [address] [place] [address], [place] Glucose [Mass/Vol] 279 mg/dL High 70-100 [facility] Comment on above: Performed By: #### 8 5499 ####[facility] [place] [address], [place] Glucose [Mass/Vol] 214 mg/dL High 70-100 [facility] Comment on above: Performed By: #### 3 179 #### [facility] [address] [place] [address], [place] POC GLUCOSE LABon 07-10-2020 Glucose [Mass/Vol] 207 mg/dL High 70-100 [facility] Comment on above: Performed By: #### 8 5499 #### [facility] [address] [place] [address], [place] Glucose [Mass/Vol] 119 mg/dL High 70-100 [facility] Comment on above: Performed By: #### 8 5499 #### [facility] [address] [place] [address], [place] Glucose [Mass/Vol] 282 mg/dL High 70-100 [facility] Comment on above: Performed By: #### 8 5499 #### [facility] [address] [place] [address], [place] Glucose [Mass/Vol] 212 mg/dL High 70-100 [facility] Comment on above: Performed By: #### 8 5499 #### [facility] [address] [place] [address], [place] POC GLUCOSE LABon 07-09-2020 Glucose [Mass/Vol] 134 mg/dL High 70-100 [facility] Comment on above: Performed By: #### 8 5499 ####[facility] [place] [address], [place] Glucose [Mass/Vol] 113 mg/dL High 70-100 [facility] Comment on above: Performed By: #### 8 5499 ####[facility] [place] [address], [place] Glucose [Mass/Vol] 158 mg/dL High 70-100 [facility] Comment on above: Performed By: #### 8 5499 ####[facility] [place] [address], [place] Glucose [Mass/Vol] 146 mg/dL High 70-100 [facility] Comment on above: Performed By: #### 3 1792 #### [facility] [address] [place] [address], [place] BASIC METABOLIC PANELon 11-0 Calcium [Mass/Vol] 9.4 mg/dL Normal 8.6-10.[address] [facility] Comment on above: Order Comment: No: D o not add to previous draw Performed By: #### 0 0071, 01835 #### [facility] [address] [place] [address], [place] Chloride [Moles/Vol] 102 mmol/L Normal 98-107 The [facility] [place] Comment on above: Order Comment: No: D o not add to previous draw Performed By: #### 0 0071, 93397 #### [facility] [address] [place] [address], [place] CO2 [Moles/Vol] 28 mmol/L Normal 21-31 [facility] Comment on above: Order Comment: No: D o not add to previous draw Performed By: #### 0 0071, 43470 #### [facility] [address] [place] [address], [place] Creatinine [Mass/Vol] 0.73 mg/dL Normal 0.60-1.20 The [facility] [place] Comment on above: Order Comment: No: D o not add to previous draw Performed By: #### 0 0071, 16773 #### [facility] [address] [place] [address], [place] GFR/1.73 sq M predicted among blacks MDRD (S/P/Bld) [Vol rate/Area] mL/min/{1.73_m2} Normal >60 The [facility] [place] Comment on above: Order Comment: No: D o not add to previous draw Performed By: #### 0 0071, 22615 #### [facility] [address] [place] [address], [place] GFR/1.73 sq M predicted among non-blacks MDRD (S/P/Bld) [Vol rate/Area] mL/min/{1.73_m2} Normal >60 The [facility] [place] Comment on above: Order Comment: No: D o not add to previous draw Performed By: #### 0 0071, 65201 #### [facility] [address] [place] [id number], [facility] Glucose [Mass/Vol] 162 mg/dL High 70-100 The [facility] Comment on above: Order Comment: No: D o not add to previous draw Performed By: #### 0 0071, 70323 #### [facility] [address] [place] [address], [facility] Potassium [Moles/Vol] 3.8 mmol/L Normal 3.5-5.1 The [facility] [place] Comment on above: Order Comment: No: D o not add to previous draw Performed By: #### 0 0071, 64393 #### [facility] [address] [place] [address], [facility] Sodium [Moles/Vol] 138 mmol/L Normal 136-145 [facility] Comment on above: Order Comment: No: D o not add to previous draw Performed By: #### 0 0071, 13565 #### [facility] [address] [place] [address], [facility] Urea nitrogen [Mass/Vol] 15 mg/dL Normal 7-25 The [facility] [place] Comment on above: Order Comment: No: D o not add to previous draw Performed By: #### 0 0071, 37423 #### [facility] [address] [address], [facility] CBC W/DIFFon 07-08-2020 ABS BASOPHILS 0.1 10*3/uL Normal 0.0-0.2 The [facility] Comment on above: Order Comment: No: D o not add to previous draw Performed By: #### 8 5499 #### [facility] [address] [place] [address], [facility] ABS IMM GRANS 0.0 10*3/uL Normal 0.0-0.2 The [facility] Comment on above: Order Comment: No: D o not add to previous draw Performed By: #### 8 5499 #### [facility] [address] [place] [address], [facility] ABS NEUTROPHILS 3.5 10*3/uL Normal 1.6-7.6 The [facility] Comment on above: Order Comment: No: D o not add to previous draw Performed By: #### 8 5499 #### [facility] [address] [place] [address], [facility] Basophils/100 WBC (Bld) 0.9 % Normal 0.0-1.0 The [facility] [place] Comment on above: Order Comment: No: D o not add to previous draw Performed By: #### 8 5499 #### [facility] [address] [place] [id number], [facility] Eosinophils (Bld) [#/Vol] 0.3 10*3/uL Normal 0.0-0.5 [facility] Comment on above: Order Comment: No: D o not add to previous draw Performed By: #### 8 5499 #### [facility] [address] [place] [address], [facility] Eosinophils/100 WBC (Bld) 3.9 % Normal 0.0-6.0 The [facility] Comment on above: Order Comment: No: D o not add to previous draw Performed By: #### 8 [id number] #### [facility] [address] [place] [address], [facility] Erythrocyte distribution width (RBC) [Ratio] 15.1 % High 11.5-15.0 The [facility] Comment on above: Order Comment: No: D o not add to previous draw Performed By: #### 8 [id number] #### [facility] [address] [place] [id number], [facility] Hematocrit (Bld) [Volume fraction] 41.0 % Normal 36.0-45.0 The [facility] Comment on above: Order Comment: No: D o not add to previous draw Performed By: #### 8 [id number] #### [facility] [address] [place] [address], [facility] Hemoglobin (Bld) [Mass/Vol] 13.0 g/dL Normal 12.0-15.0 The [facility] Comment on above: Order Comment: No: D o not add to previous draw Performed By: #### 8 [id number] #### [facility] [address] [place] [address], [facility] IMMATURE GRANS 0.5 % Normal 0.0-1.0 The [facility] Comment on above: Order Comment: No: D o not add to previous draw Performed By: #### 8 [id number] #### [facility] [address] [place] [address], [facility] Lymphocytes (Bld) [#/Vol] 1.8 10*3/uL Normal 1.2-4.0 The [facility] Comment on above: Order Comment: No: D o not add to previous draw Performed By: #### 8 [id number] #### [facility] [address] [place] [id number], [facility] Lymphocytes/100 WBC (Bld) 28.2 % Normal 20.0-45.0 The [facility] Comment on above: Order Comment: No: D o not add to previous draw Performed By: #### 8 [id number] #### [facility] [address] [place] [address], [facility] MCH (RBC) [Entitic mass] 28.6 pg Normal 27.0-33.0 The [facility] Comment on above: Order Comment: No: D o not add to previous draw Performed By: #### 8 [id number] #### [facility] [address] [place] [id number], [facility] MCHC (RBC) [Mass/Vol] 31.7 g/dL Low 32.0-35.0 The [facility] Comment on above: Order Comment: No: D o not add to previous draw Performed By: #### 8 [id number] #### [facility] [address] [place] [address], [facility] MCV (RBC) [Entitic vol] 90.3 fL Normal 82.0-98.0 The [facility] Comment on above: Order Comment: No: D o not add to previous draw Performed By: #### 8 [id number] #### [facility] [address] [place] [address], [facility] Monocytes (Bld) [#/Vol] 0.7 10*3/uL Normal 0.1-1.0 The [facility] Comment on above: Order Comment: No: D o not add to previous draw Performed By: #### 8 [id number] #### [facility] [address] [place] [id number], [facility] MONOS 11.1 % Normal 5.0-12.0 The [facility] Comment on above: Order Comment: No: D o not add to previous draw Performed By: #### 8 [id number] #### [facility] [address] [place] [address], [facility] Neutrophils/100 WBC (Bld) 55.4 % Normal 40.0-72.0 The [facility] Comment on above: Order Comment: No: D o not add to previous draw Performed By: #### 8 [id number] #### [facility] [address] [place] [address], [facility] Nucleated RBC/100 WBC (Bld) [Ratio] 0 % Normal 0-0 The [facility] Comment on above: Order Comment: No: D o not add to previous draw Performed By: #### 8 [id number] #### [facility] [address] [place] [address], [place] PLAT CNT 230 10*3/uL Normal 150-400 The [facility] Comment on above: Order Comment: No: D o not add to previous draw Performed By: #### 8 [id number] #### [facility] [address] [place] [address], [place] RBC (Bld) [#/Vol] 4.54 10*6/uL Normal 3.80-5.00 The [facility] Comment on above: Order Comment: No: D o not add to previous draw Performed By: #### 8 [id number] #### [facility] [address] [place] [address], [place] WBC (Bld) [#/Vol] 6.38 10*3/uL Normal 4.00-10.60 The [facility] Comment on above: Order Comment: No: D o not add to previous draw Performed By: #### 8 [id number] #### [facility] [address] [place] [address], [place] POC GLUCOSE LABon 07-08-2020 Glucose [Mass/Vol] 164 mg/dL High 70-100 [facility] Comment on above: Performed By: #### 8 [id number] #### [facility] [address] [place] [address], [place] Glucose [Mass/Vol] 137 mg/dL High 70-100 [facility] Comment on above: Performed By: #### 8 [id number] ####[facility] [place] [address], [place] Glucose [Mass/Vol] 247 mg/dL High 70-100 [facility] Comment on above: Performed By: #### 8 [id number] ####[facility] [place] [address], [place] Glucose [Mass/Vol] 154 mg/dL High 70-100 [facility] Comment on above: Performed By: #### 8 [id number] ####[facility] [place] [address], [place] Glucose [Mass/Vol] 158 mg/dL High 70-100 [facility] Comment on above: Performed By: #### 8 [id number] #### [facility] [address] [place] [address], [place] POC GLUCOSE LABon 07-07-2020 Glucose [Mass/Vol] 144 mg/dL High 70-100 [facility] Comment on above: Performed By: #### 3 1792 #### [facility] [address] [place] [address], [place] Glucose [Mass/Vol] 184 mg/dL High 70-100 [facility] Comment on above: Performed By: #### 8 [id number] ####[facility] [place] [address], [place] Glucose [Mass/Vol] 171 mg/dL High 70-100 [facility] Comment on above: Performed By: #### 8 [id number] ####[facility] [place] [address], [place] Glucose [Mass/Vol] 98 mg/dL Normal 70-100 [facility] Comment on above: Performed By: #### 8 [id number] #### [facility] [address] [place] [address], [place] POC GLUCOSE LABon 07-06-2020 Glucose [Mass/Vol] 220 mg/dL High 70-100 [facility] Comment on above: Performed By: #### 8 [id number] ####[facility] [place] [address], [place] Glucose [Mass/Vol] 215 mg/dL High 70-100 [facility] Comment on above: Performed By: #### 8 [id number] ####[facility] [place] [address], [place] Glucose [Mass/Vol] 288 mg/dL High 70-100 [facility] Comment on above: Performed By: #### 3 1792 #### [facility] [address] [place] [address], [place] POC GLUCOSE LABon 07-05-2020 Glucose [Mass/Vol] 111 mg/dL High 70-100 The [facility] Comment on above: Performed By: #### 8 [id number] #### [facility] [address] [place] [address], [place] Glucose [Mass/Vol] 144 mg/dL High 70-100 The [facility] Comment on above: Performed By: #### 8 [id number] #### [facility] [address] [place] [address], [place] Glucose [Mass/Vol] 151 mg/dL High 70-100 The [facility] Comment on above: Performed By: #### 8 [id number] ####[facility] [place] [address], [place] Glucose [Mass/Vol] 157 mg/dL High 70-100 The [facility] Comment on above: Performed By: #### 8 [id number] ####[facility] [place] [address], [place] Glucose [Mass/Vol] 154 mg/dL High 70-100 The [facility] Comment on above: Performed By: #### 8 [id number] ####[facility] [place] [address], [place] BASIC METABOLIC PANELon 10-3 Calcium [Mass/Vol] 9.2 mg/dL Normal 8.6-10.3 The [facility] Comment on above: Order Comment: No: D o not add to previous draw Performed By: #### 0 0071, 19834 #### [facility] [address] [place] [address], [place] Chloride [Moles/Vol] 101 mmol/L Normal 98-107 The [facility] Comment on above: Order Comment: No: D o not add to previous draw Performed By: #### 0 0071, 06028 #### [facility] [address] [place] [address], [place] CO2 [Moles/Vol] 26 mmol/L Normal 21-31 [facility] Comment on above: Order Comment: No: D o not add to previous draw Performed By: #### 0 0071, 36452 #### [facility] [address] [place] [address], [place] Creatinine [Mass/Vol] 0.75 mg/dL Normal 0.60-1.20 The [facility] Comment on above: Order Comment: No: D o not add to previous draw Performed By: #### 0 0071, 83243 #### [facility] [address] [place] [address], [place] GFR/1.73 sq M predicted among blacks MDRD (S/P/Bld) [Vol rate/Area] mL/min/{1.73_m2} Normal >60 [facility] Comment on above: Order Comment: No: D o not add to previous draw Performed By: #### 0 0071, 36148 #### [facility] [address] [place] [address], [place] GFR/1.73 sq M predicted among non-blacks MDRD (S/P/Bld) [Vol rate/Area] mL/min/{1.73_m2} Normal >60 The [facility] Comment on above: Order Comment: No: D o not add to previous draw Performed By: #### 0 0071, 51964 #### [facility] [address] [place] [address], [place] Glucose [Mass/Vol] 343 mg/dL High 70-[address] [facility] Comment on above: Order Comment: No: D o not add to previous draw Performed By: #### 0 0071, 59015 #### [facility] [address] [place] [address], [place] Potassium [Moles/Vol] 3.6 mmol/L Normal 3.5-5.1 The [facility] Comment on above: Order Comment: No: D o not add to previous draw Performed By: #### 0 0071, 84764 #### [facility] [address] [place] [address], [facility] Sodium [Moles/Vol] 137 mmol/L Normal 136-145 The [facility] Comment on above: Order Comment: No: D o not add to previous draw Performed By: #### 0 0071, 30739 #### [facility] [address] [place] [address], [facility] Urea nitrogen [Mass/Vol] 15 mg/dL Normal 7-25 The [facility] Comment on above: Order Comment: No: D o not add to previous draw Performed By: #### 0 0071, 37263 #### [facility] [address] [place] [address], [facility] CBC W/DIFFon 07-04-2020 ABS BASOPHILS 0.0 10*3/uL Normal 0.0-0.2 The [facility] Comment on above: Order Comment: No: D o not add to previous draw Performed By: #### 8 [id number] #### [facility] [address] [address], [facility] ABS IMM GRANS 0.0 10*3/uL Normal 0.0-0.2 The [facility] Comment on above: Order Comment: No: D o not add to previous draw Performed By: #### 8 5499 #### [facility] [address] [place] [address], [facility] ABS NEUTROPHILS 4.0 10*3/uL Normal 1.6-7.6 The [facility] Comment on above: Order Comment: No: D o not add to previous draw Performed By: #### 8 [id number] #### [facility] [address] [place] [id number], [facility] Basophils/100 WBC (Bld) 0.7 % Normal 0.0-1.0 The [facility] Comment on above: Order Comment: No: D o not add to previous draw Performed By: #### 8 [id number] #### [facility] [address] [place] [address], [facility] Eosinophils (Bld) [#/Vol] 0.3 10*3/uL Normal 0.0-0.5 The [facility] Comment on above: Order Comment: No: D o not add to previous draw Performed By: #### 8 [id number] #### [facility] [address] [place] [address], [facility] Eosinophils/100 WBC (Bld) 4.7 % Normal 0.0-6.0 The [facility] Comment on above: Order Comment: No: D o not add to previous draw Performed By: #### 8 [id number] #### [facility] [address] Erythrocyte distribution width (RBC) [Ratio] 15.0 % Normal 11.5-15.0 The [facility] Comment on above: Order Comment: No: D o not add to previous draw Performed By: #### 8 [id number] #### [facility] [address] [address], [facility] Hematocrit (Bld) [Volume fraction] 38.0 % Normal 36.0-45.0 The [facility] Comment on above: Order Comment: No: D o not add to previous draw Performed By: #### 8 [id number] #### [facility] [address] [place] [address], [facility] Hemoglobin (Bld) [Mass/Vol] 12.4 g/dL Normal 12.0-15.0 The [facility] Comment on above: Order Comment: No: D o not add to previous draw Performed By: #### 8 [id number] #### [facility] [address] [place] [address], [facility] IMMATURE GRANS 0.3 % Normal 0.0-1.0 [facility] Comment on above: Order Comment: No: D o not add to previous draw Performed By: #### 8 [id number] #### [facility] [address] [place] [address], [facility] Lymphocytes (Bld) [#/Vol] 1.1 10*3/uL Low 1.2-4.0 The [facility] Comment on above: Order Comment: No: D o not add to previous draw Performed By: #### 8 [id number] #### [facility] [address] [place] [address], [facility] Lymphocytes/100 WBC (Bld) 18.1 % Low 20.0-45.0 The [facility] Comment on above: Order Comment: No: D o not add to previous draw Performed By: #### 8 [id number] #### [facility] [address] [place] [address], [facility] MCH (RBC) [Entitic mass] 29.1 pg Normal 27.0-33.0 The [facility] Comment on above: Order Comment: No: D o not add to previous draw Performed By: #### 8 [id number] #### [facility] [address] [place] [address], [facility] MCHC (RBC) [Mass/Vol] 32.6 g/dL Normal 32.0-35.0 The [facility] Comment on above: Order Comment: No: D o not add to previous draw Performed By: #### 8 [id number] #### [facility] [address] [place] [address], [facility] MCV (RBC) [Entitic vol] 89.2 fL Normal 82.0-98.0 The [facility] Comment on above: Order Comment: No: D o not add to previous draw Performed By: #### 8 [id number] #### [facility] [address] [place] [address], [facility] Monocytes (Bld) [#/Vol] 0.6 10*3/uL Normal 0.1-1.0 [facility] Comment on above: Order Comment: No: D o not add to previous draw Performed By: #### 8 [id number] #### [facility] [address] [place] [id number], [facility] MONOS 9.6 % Normal 5.0-12.0 The [facility] Comment on above: Order Comment: No: D o not add to previous draw Performed By: #### 8 [id number] #### [facility] [address] [place] [address], [facility] Neutrophils/100 WBC (Bld) 66.6 % Normal 40.0-72.0 The [facility] Comment on above: Order Comment: No: D o not add to previous draw Performed By: #### 8 [id number] #### [facility] [address] [place] [address], [facility] Nucleated RBC/100 WBC (Bld) [Ratio] 0 % Normal 0-0 The [facility] Comment on above: Order Comment: No: D o not add to previous draw Performed By: #### 8 [id number] #### [facility] [address] [place] [id number], [facility] PLAT CNT 186 10*3/uL Normal 150-400 The [facility] Comment on above: Order Comment: No: D o not add to previous draw Performed By: #### 8 [id number] #### [facility] [address] [place] [id number], [facility] RBC (Bld) [#/Vol] 4.26 10*6/uL Normal 3.80-5.00 The [facility] Comment on above: Order Comment: No: D o not add to previous draw Performed By: #### 8 [id number] #### [facility] [address] [place] [address], [place] WBC (Bld) [#/Vol] 5.96 10*3/uL Normal 4.00-10.60 The [facility] Comment on above: Order Comment: No: D o not add to previous draw Performed By: #### 8 [id number] #### [facility] [address] [place] [address], [place] MAGNESIUM BLOODon 07-04-2020 Magnesium [Mass/Vol] 1.7 mg/dL Low 1.9-2.7 The [facility] Comment on above: Order Comment: No: D o not add to previous draw Performed By: #### 0 0071, 88197 #### [facility] [address] [place] [address], [place] POC GLUCOSE LABon 07-04-2020 Glucose [Mass/Vol] 143 mg/dL High 70-100 The [facility] Comment on above: Performed By: #### 8 [id number] #### [facility] [address] [place] [address], [place] Glucose [Mass/Vol] 226 mg/dL High 70-100 The [facility] Comment on above: Performed By: #### 3 1792 #### [facility] [address] [place] [address], [place] Glucose [Mass/Vol] 340 mg/dL High 70-100 The [facility] Comment on above: Performed By: #### 8 [id number] #### [facility] [address] [place] [address], [place] BASIC METABOLIC PANELon 06-06 Calcium [Mass/Vol] 9.1 mg/dL Normal 8.6-10.3 The [facility] Comment on above: Order Comment: No: D o not add to previous draw Performed By: #### 0 0071, 98845 #### [facility] [address] [place] [address], [place] Chloride [Moles/Vol] 104 mmol/L Normal 98-107 The [facility] Comment on above: Order Comment: No: D o not add to previous draw Performed By: #### 0 0071, 99576 #### [facility] [address] [place] [address], [place] CO2 [Moles/Vol] 27 mmol/L Normal 21-31 [facility] Comment on above: Order Comment: No: D o not add to previous draw Performed By: #### 0 0071, 36036 #### [facility] [address] [place] [address], [place] Creatinine [Mass/Vol] 0.69 mg/dL Normal 0.60-1.20 [facility] Comment on above: Order Comment: No: D o not add to previous draw Performed By: #### 0 0071, 82937 #### [facility] [address] [place] [address], [place] GFR/1.73 sq M predicted among blacks MDRD (S/P/Bld) [Vol rate/Area] mL/min/{1.73_m2} Normal >60 [facility] Comment on above: Order Comment: No: D o not add to previous draw Performed By: #### 0 0071, 94792 #### [facility] [address] [place] [address], [place] GFR/1.73 sq M predicted among non-blacks MDRD (S/P/Bld) [Vol rate/Area] mL/min/{1.73_m2} Normal >60 [facility] Comment on above: Order Comment: No: D o not add to previous draw Performed By: #### 0 0071, 98658 #### [facility] [address] [place] [address], [place] Glucose [Mass/Vol] 192 mg/dL High 70-[address] [facility] Comment on above: Order Comment: No: D o not add to previous draw Performed By: #### 0 0071, 79905 #### [facility] [address] [place] [address], [place] Potassium [Moles/Vol] 3.2 mmol/L Low 3.5-5.1 The [facility] Comment on above: Order Comment: No: D o not add to previous draw Performed By: #### 0 0071, 23035 #### [facility] [address] [place] [address], [facility] Sodium [Moles/Vol] 139 mmol/L Normal 136-145 The [facility] Comment on above: Order Comment: No: D o not add to previous draw Performed By: #### 0 0071, 24488 #### [facility] [address] [place] [address], [facility] Urea nitrogen [Mass/Vol] 13 mg/dL Normal 7-25 The [facility] Comment on above: Order Comment: No: D o not add to previous draw Performed By: #### 0 0071, 56897 #### [facility] [address] [address], [facility] CBC W/DIFFon 07-03-2020 ABS BASOPHILS 0.1 10*3/uL Normal 0.0-0.2 The [facility] Comment on above: Order Comment: No: D o not add to previous draw Performed By: #### 8 [id number] #### [facility] [address] [place] [address], [facility] ABS IMM GRANS 0.0 10*3/uL Normal 0.0-0.2 The [facility] Comment on above: Order Comment: No: D o not add to previous draw Performed By: #### 8 5499 #### [facility] [address] [place] [address], [facility] ABS NEUTROPHILS 3.7 10*3/uL Normal 1.6-7.6 The [facility] Comment on above: Order Comment: No: D o not add to previous draw Performed By: #### 8 [id number] #### [facility] [address] [place] [address], [facility] Basophils/100 WBC (Bld) 0.8 % Normal 0.0-1.0 The [facility] Comment on above: Order Comment: No: D o not add to previous draw Performed By: #### 8 [id number] #### [facility] [address] [place] [address], [facility] Eosinophils (Bld) [#/Vol] 0.3 10*3/uL Normal 0.0-0.5 The [facility] Comment on above: Order Comment: No: D o not add to previous draw Performed By: #### 8 5499 #### [facility] [address] [address], [facility] Eosinophils/100 WBC (Bld) 4.4 % Normal 0.0-6.0 The [facility] Comment on above: Order Comment: No: D o not add to previous draw Performed By: #### 8 5499 #### [facility] [address] Erythrocyte distribution width (RBC) [Ratio] 14.7 % Normal 11.5-15.0 The [facility] Comment on above: Order Comment: No: D o not add to previous draw Performed By: #### 8 [id number] #### [facility] [address] [address], [facility] Hematocrit (Bld) [Volume fraction] 38.4 % Normal 36.0-45.0 The [facility] Comment on above: Order Comment: No: D o not add to previous draw Performed By: #### 8 [id number] #### [facility] [address] [place] [address], [facility] Hemoglobin (Bld) [Mass/Vol] 12.2 g/dL Normal 12.0-15.0 The [facility] Comment on above: Order Comment: No: D o not add to previous draw Performed By: #### 8 [id number] #### [facility] [address] [place] [address], [facility] IMMATURE GRANS 0.5 % Normal 0.0-1.0 The [facility] Comment on above: Order Comment: No: D o not add to previous draw Performed By: #### 8 5499 #### [facility] [address] [place] [address], [facility] Lymphocytes (Bld) [#/Vol] 1.3 10*3/uL Normal 1.2-4.0 The [facility] Comment on above: Order Comment: No: D o not add to previous draw Performed By: #### 8 5499 #### [facility] [address] [place] [address], [facility] Lymphocytes/100 WBC (Bld) 22.0 % Normal 20.0-45.0 The [facility] Comment on above: Order Comment: No: D o not add to previous draw Performed By: #### 8 [id number] #### [facility] [address] [facility] [address], [facility] MCH (RBC) [Entitic mass] 28.6 pg Normal 27.0-33.0 The [facility] Comment on above: Order Comment: No: D o not add to previous draw Performed By: #### 8 [id number] #### [facility] [address] [address], [facility] MCHC (RBC) [Mass/Vol] 31.8 g/dL Low 32.0-35.0 The [facility] Comment on above: Order Comment: No: D o not add to previous draw Performed By: #### 8 [id number] #### [facility] [address] [place] [id number], [facility] MCV (RBC) [Entitic vol] 90.1 fL Normal 82.0-98.0 The [facility] Comment on above: Order Comment: No: D o not add to previous draw Performed By: #### 8 [id number] #### [facility] [address] [place] [id number], [facility] Monocytes (Bld) [#/Vol] 0.7 10*3/uL Normal 0.1-1.0 The [facility] Comment on above: Order Comment: No: D o not add to previous draw Performed By: #### 8 [id number] #### [facility] [address] [place] [address], [facility] MONOS 11.1 % Normal 5.0-12.0 The [facility] Comment on above: Order Comment: No: D o not add to previous draw Performed By: #### 8 [id number] #### [facility] [address] [place] [address], [facility] Neutrophils/100 WBC (Bld) 61.2 % Normal 40.0-72.0 The [facility] Comment on above: Order Comment: No: D o not add to previous draw Performed By: #### 8 [id number] #### [facility] [address] [place] [address], [facility] Nucleated RBC/100 WBC (Bld) [Ratio] 0 % Normal 0-0 The [facility] Comment on above: Order Comment: No: D o not add to previous draw Performed By: #### 8 [id number] #### [facility] [address] [address], [facility] PLAT CNT 193 10*3/uL Normal 150-400 The [facility] Comment on above: Order Comment: No: D o not add to previous draw Performed By: #### 8 [id number] #### [facility] [address] [facility] [address], [facility] RBC (Bld) [#/Vol] 4.26 10*6/uL Normal 3.80-5.00 The [facility] Comment on above: Order Comment: No: D o not add to previous draw Performed By: #### 8 [id number] #### [facility] [address] [place] [id number], [facility] WBC (Bld) [#/Vol] 5.96 10*3/uL Normal 4.00-10.60 The [facility] Comment on above: Order Comment: No: D o not add to previous draw Performed By: #### 8 [id number] #### [facility] [address] [place] [address], [facility] POC GLUCOSE LABon 07-03-2020 Glucose [Mass/Vol] 161 mg/dL High 70-100 The [facility] Comment on above: Performed By: #### 8 [id number] #### [facility] [address] [place] [address], [facility] BASIC METABOLIC PANELon 06-06 Calcium [Mass/Vol] 8.5 mg/dL Low 8.6-10.3 The [facility] Comment on above: Order Comment: No: D o not add to previous draw Performed By: #### 0 0071, 79102 #### [facility] [address] [place] [address], [place] Chloride [Moles/Vol] 103 mmol/L Normal 98-107 The [facility] Comment on above: Order Comment: No: D o not add to previous draw Performed By: #### 0 0071, 33786 #### [facility] [address] [place] [address], [place] CO2 [Moles/Vol] 24 mmol/L Normal 21-31 The [facility] Comment on above: Order Comment: No: D o not add to previous draw Performed By: #### 0 0071, 65750 #### [facility] [address] [place] [address], [place] Creatinine [Mass/Vol] 0.76 mg/dL Normal 0.60-1.20 The [facility] Comment on above: Order Comment: No: D o not add to previous draw Performed By: #### 0 0071, 76666 #### [facility] [address] [place] [address], [place] GFR/1.73 sq M predicted among blacks MDRD (S/P/Bld) [Vol rate/Area] mL/min/{1.73_m2} Normal >60 The [facility] Comment on above: Order Comment: No: D o not add to previous draw Performed By: #### 0 0071, 65208 #### [facility] [address] [place] [address], [place] GFR/1.73 sq M predicted among non-blacks MDRD (S/P/Bld) [Vol rate/Area] mL/min/{1.73_m2} Normal >60 The [facility] Comment on above: Order Comment: No: D o not add to previous draw Performed By: #### 0 0071, 76598 #### [facility] [address] [place] [address], [place] Glucose [Mass/Vol] 224 mg/dL High 70-100 The [facility] Comment on above: Order Comment: No: D o not add to previous draw Performed By: #### 0 0071, 08248 #### [facility] [address] [place] [address], [place] Potassium [Moles/Vol] 4.0 mmol/L Normal 3.5-5.1 The [facility] Comment on above: Order Comment: No: D o not add to previous draw Performed By: #### 0 0071, 71485 #### [facility] [address] [place] [address], [place] Sodium [Moles/Vol] 134 mmol/L Low 136-145 The [facility] Comment on above: Order Comment: No: D o not add to previous draw Performed By: #### 0 0071, 28797 #### [facility] [address] [place] [address], [place] Urea nitrogen [Mass/Vol] 16 mg/dL Normal 7-25 The [facility] Comment on above: Order Comment: No: D o not add to previous draw Performed By: #### 0 0071, 95189 #### [facility] [address] [place] [address], [facility] CBC W/DIFFon 07-02-2020 ABS BASOPHILS 0.1 10*3/uL Normal 0.0-0.2 The [facility] Comment on above: Order Comment: No: D o not add to previous draw Performed By: #### 0 0071, 96406 #### [facility] [address] [place] [address], [facility] ABS IMM GRANS 0.1 10*3/uL Normal 0.0-0.2 The [facility] Comment on above: Order Comment: No: D o not add to previous draw Performed By: #### 0 0071, 55398 #### [facility] [address] [place] [address], [facility] ABS NEUTROPHILS 6.5 10*3/uL Normal 1.6-7.6 The [facility] Comment on above: Order Comment: No: D o not add to previous draw Performed By: #### 0 0071, 63007 #### [facility] [address] [place] [address], [facility] Basophils/100 WBC (Bld) 0.7 % Normal 0.0-1.0 The [facility] Comment on above: Order Comment: No: D o not add to previous draw Performed By: #### 0 0071, 67245 #### [facility] [address] [place] [address], [facility] Eosinophils (Bld) [#/Vol] 0.2 10*3/uL Normal 0.0-0.5 The [facility] Comment on above: Order Comment: No: D o not add to previous draw Performed By: #### 0 0071, 85365 #### [facility] [address] [place] [address], [facility] Eosinophils/100 WBC (Bld) 2.5 % Normal 0.0-6.0 The [facility] Comment on above: Order Comment: No: D o not add to previous draw Performed By: #### 0 0071, 00886 #### [facility] [address] [place] [address], [facility] Erythrocyte distribution width (RBC) [Ratio] 14.9 % Normal 11.5-15.0 The [facility] Comment on above: Order Comment: No: D o not add to previous draw Performed By: #### 0 0071, 69187 #### [facility] [address] [place] [address], [facility] Hematocrit (Bld) [Volume fraction] 37.8 % Normal 36.0-45.0 The [facility] Comment on above: Order Comment: No: D o not add to previous draw Performed By: #### 0 0071, 84045 #### [facility] [address] [place] [address], [facility] Hemoglobin (Bld) [Mass/Vol] 12.0 g/dL Normal 12.0-15.0 The [facility] Comment on above: Order Comment: No: D o not add to previous draw Performed By: #### 0 0071, 42220 #### [facility] [address] [facility] [address], [facility] IMMATURE GRANS 0.6 % Normal 0.0-1.0 The [facility] Comment on above: Order Comment: No: D o not add to previous draw Performed By: #### 0 0071, 48208 #### [facility] [address] [facility] [address], [facility] Lymphocytes (Bld) [#/Vol] 1.0 10*3/uL Low 1.2-4.0 The [facility] Comment on above: Order Comment: No: D o not add to previous draw Performed By: #### 0 0071, 36639 #### [facility] [address] [place] [address], [facility] Lymphocytes/100 WBC (Bld) 11.3 % Low 20.0-45.0 The [facility] Comment on above: Order Comment: No: D o not add to previous draw Performed By: #### 0 0071, 97592 #### [facility] [address] [place] [address], [facility] MCH (RBC) [Entitic mass] 29.0 pg Normal 27.0-33.0 The [facility] Comment on above: Order Comment: No: D o not add to previous draw Performed By: #### 0 0071, 19957 #### [facility] [address] [place] [address], [facility] MCHC (RBC) [Mass/Vol] 31.7 g/dL Low 32.0-35.0 The [facility] Comment on above: Order Comment: No: D o not add to previous draw Performed By: #### 0 0071, 57843 #### [facility] [address] [place] [address], [facility] MCV (RBC) [Entitic vol] 91.3 fL Normal 82.0-98.0 The [facility] Comment on above: Order Comment: No: D o not add to previous draw Performed By: #### 0 0071, 05159 #### [facility] [address] [facility] [address], [facility] Monocytes (Bld) [#/Vol] 0.9 10*3/uL Normal 0.1-1.0 The [facility] Comment on above: Order Comment: No: D o not add to previous draw Performed By: #### 0 0071, 68142 #### [facility] [address] [address], [facility] MONOS 10.3 % Normal 5.0-12.0 The [facility] Comment on above: Order Comment: No: D o not add to previous draw Performed By: #### 0 0071, 20179 #### [facility] [address] [place] [id number], [facility] Neutrophils/100 WBC (Bld) 74.6 % High 40.0-72.0 The [facility] Comment on above: Order Comment: No: D o not add to previous draw Performed By: #### 0 0071, 31237 #### [facility] [address] [place] [address], [facility] Nucleated RBC/100 WBC (Bld) [Ratio] 0 % Normal 0-0 The [facility] Comment on above: Order Comment: No: D o not add to previous draw Performed By: #### 0 0071, 75163 #### [facility] [address] [place] [address], [facility] PLAT CNT 229 10*3/uL Normal 150-400 The [facility] Comment on above: Order Comment: No: D o not add to previous draw Performed By: #### 0 0071, 23500 #### [facility] [address] [place] [address], [facility] RBC (Bld) [#/Vol] 4.14 10*6/uL Normal 3.80-5.00 The [facility] Comment on above: Order Comment: No: D o not add to previous draw Performed By: #### 0 0071, 71658 #### [facility] [address] [facility] [address], [facility] WBC (Bld) [#/Vol] 8.65 10*3/uL Normal 4.00-10.60 The [facility] Comment on above: Order Comment: No: D o not add to previous draw Performed By: #### 0 0071, 37310 #### [facility] [address] [place] [address], [facility] MAGNESIUM BLOODon 07-02-2020 Magnesium [Mass/Vol] 1.8 mg/dL Low 1.9-2.7 The [facility] Comment on above: Order Comment: No: D o not add to previous draw Performed By: #### 0 0071, 15533 #### [facility] [address] [place], [place] [address] [place] [address] POC GLUCOSE LABon 07-02-2020 Glucose [Mass/Vol] 157 mg/dL High 70-100 The [facility] Comment on above: Performed By: #### 8 5499 #### [address] *MRSA/MSSA CULTUREon 020 *MRSA/MSSA CULTURE Clinical [...] No previously released data found. Normal The [facility] Comment on above: Performed By: #### 3 1302 #### [address] LUMBAR SPINE 2 OR 3 [facility] LUMBAR SPINE 2 OR 3 [facility] Department of Radiology [address] [place] [id number] Patient Name: MONICA ACOSTA : 1960 Sex: F Age: Race: White Pt. Location: [id number] Patient Status: I Ordered Date: 07/01/2020 7:00:00 [...] reports Electronically signed: Richard Clarke. Transcribed by: [email or web address], User Resident: BOGDAN SOTELO Electronically Signed by: RICHARD CLARKE @ 07/01/2020 08:54 PM I personally read this/these film(s) with this resident Normal The [facility] Comment on above: Order Comment: No: D o not add to previous draw Operative Reporton 0 Operative Report MR#: [id number] I [facility] Pt. Name: Monica Acosta Room #: [id number] Discharge Date: Birthdate: 1960 OPERATIVE REPORT DATE OF SURGERY: 07/01/2020 SURGEON: Chilango Martinez M.D. PIGMENT PUSHER: Ant Jolley M.D. PREOPERATIVE DIAGNOSIS: L1 vertebral compression fracture secondary to osteoporosis (ICD-10 M80.08XA). ANESTHESIA: General endotracheal. POSITION: Prone position on the Chris table in reverse Trendelenburg position. OPERATION: 1. L1 vertebroplasty (42379). 2. Use of intraoperative fluoroscopy (62314). POSTOPERATIVE DIAGNOSIS: [id number] compression fracture secondary to osteoporosis (ICD-10 M80.08XA). [...] lateral, the cement from [employer] system from [employer] was mixed. Cement was injected under live [...] Martinez M.D. Date Trans: 07/01/2020 12:25 P/ [id number] Normal The [facility] POC GLUCOSE LABon 07-01-2020 Glucose [Mass/Vol] 142 mg/dL High 70-100 The [facility] Comment on above: Performed By: #### 8 5499 ####[facility] [facility] [address], [facility] Glucose [Mass/Vol] 156 mg/dL High 70-100 The [facility] Comment on above: Performed By: #### 3 1792 #### [facility] [address] [place] [id number], [facility] Glucose [Mass/Vol] 187 mg/dL High 70-100 The [facility] Comment on above: Performed By: #### 3 1792 #### [facility] [address] [facility] [address], [facility] *SARS-CoV-2 COVID-19on 06-30 [id number] Not Detected Normal Not Detected The [facility] Comment on above: Order Comment: The A ptima SARS-CoV-2 assay is a nucleic acid amplification test intended for the qualitative detection of RNA from SARS-CoV-2 isolated and purified from nasopharyngeal (EDUCATION PROGRAM SPECIALIST),oropharyngeal (OP), nasal swab, sputum, and bronchoalveolar lavage (BAL) specimens from patients with signs and symptoms of infection who are suspected of COVID-19. Results are for the identification of SARS-CoV-2 RNA. The SARS-CoV-2 RNA is generally detectable during the acute phase of infection. The Aptima SARS-CoV-2 Assay on the stiQRd system is intended for use by laboratory personnel specifically instructed and trained in the operation of the [employer] system. The Aptima SARS-CoV-2 assay is [...] information. Performed By: #### 3 1792 #### [facility] [address] APTTon 06-30-2020 aPTT Coag (Bld) [Time] 22.4 s Low 25.0-35.0 [facility] Comment on above: Result Comment: ALL [...] PURPOSE. Performed By: #### 8 5499 #### [facility] [address] [facility]. [address] BASIC METABOLIC PANELon 10-2 Calcium [Mass/Vol] 9.5 mg/dL Normal 8.6-10.[address] [facility] Comment on above: Performed By: #### 8 5499 #### [facility] [address] [facility] [address], [facility] Chloride [Moles/Vol] 95 mmol/L Low 98-107 The [facility] Comment on above: Performed By: #### 8 5499 #### [facility] [address] [facility] [address], [facility] CO2 [Moles/Vol] 21 mmol/L Normal 21-31 The [facility] Comment on above: Performed By: #### 8 5499 #### [facility] [address] [place] [address], [place] Creatinine [Mass/Vol] 1.00 mg/dL Normal 0.60-1.20 The [facility] Comment on above: Performed By: #### 8 5499 #### [facility] [address] [place] [address], [place] GFR/1.73 sq M predicted among blacks MDRD (S/P/Bld) [Vol rate/Area] mL/min/{1.73_m2} Normal >60 The [facility] Comment on above: Performed By: #### 8 5499 #### [facility] [address] [place] [address], [place] GFR/1.73 sq M predicted among non-blacks MDRD (S/P/Bld) [Vol rate/Area] 56 ml/min/1.73sq m Abnormal >60 The [facility] Comment on above: Performed By: #### 8 5499 #### [facility] [address] [place] [address], [place] Glucose [Mass/Vol] 395 mg/dL High 70-100 The [facility] Comment on above: Performed By: #### 8 5499 #### [facility] [address] [place] [address], [place] Potassium [Moles/Vol] 4.4 mmol/L Normal 3.5-5.1 The [facility] Comment on above: Performed By: #### 8 5499 #### [facility] [address] [place] [address], [place] Sodium [Moles/Vol] 134 mmol/L Low 136-145 The [facility] Comment on above: Performed By: #### 8 5499 #### [facility] [address] [place] [address], [place] Urea nitrogen [Mass/Vol] 24 mg/dL Normal 7-25 The [facility] Comment on above: Performed By: #### 8 5499 #### [facility] [address] BNP (B-TYPE NATRIURETIC PEPT PADMAJA)on 06-30-2020 Natriuretic peptide B (Bld) [Mass/Vol] 27 pg/mL Normal 0-100 The [facility] Comment on above: Order Comment: No: D o not add to previous draw Result Comment: Give n the appropriate clinical setting a BNP result of >100 pg/mL indicates congestive heart failure. Performed By: #### 0 0071, 30383 #### [facility] [address] CBC W/DIFFon 06-30-2020 ABS BASOPHILS 0.1 10*3/uL Normal 0.0-0.2 The [facility] Comment on above: Performed By: #### 8 5499 #### [facility] [address] ABS IMM GRANS 0.1 10*3/uL Normal 0.0-0.2 The [facility] Comment on above: Performed By: #### 8 5499 #### [facility] [address] ABS NEUTROPHILS 10.3 10*3/uL High 1.6-7.6 The [facility] Comment on above: Performed By: #### 8 5499 #### [facility] [address] Basophils/100 WBC (Bld) 0.7 % Normal 0.0-1.0 The [facility] Comment on above: Performed By: #### 8 5499 #### [facility] [address] [place] [address], [facility] Eosinophils (Bld) [#/Vol] 0.2 10*3/uL Normal 0.0-0.5 The [facility] Comment on above: Performed By: #### 8 5499 #### [facility] [address] [place] [address], [facility] Eosinophils/100 WBC (Bld) 1.4 % Normal 0.0-6.0 The [facility] Comment on above: Performed By: #### 8 5499 #### [facility] [address] [place] [address], [facility] Erythrocyte distribution width (RBC) [Ratio] 14.7 % Normal 11.5-15.0 The [facility] Comment on above: Performed By: #### 8 5499 #### [facility] [address] [facility] [address], [facility] Hematocrit (Bld) [Volume fraction] 47.7 % High 36.0-45.0 The [facility] Comment on above: Performed By: #### 8 5499 #### [facility] [address] [facility] [address], [facility] Hemoglobin (Bld) [Mass/Vol] 15.3 g/dL High 12.0-15.0 The [facility] Comment on above: Performed By: #### 8 5499 #### [facility] [address] [facility] [address], [facility] IMMATURE GRANS 0.6 % Normal 0.0-1.0 The [facility] Comment on above: Performed By: #### 8 5499 #### [facility] [address] [place] [address], [facility] Lymphocytes (Bld) [#/Vol] 1.4 10*3/uL Normal 1.2-4.0 The [facility] Comment on above: Performed By: #### 8 5499 #### [facility] [address] [place] [id number], [facility] Lymphocytes/100 WBC (Bld) 11.0 % Low 20.0-45.0 The [facility] Comment on above: Performed By: #### 8 5499 #### [facility] [address] [place] [address], [facility] MCH (RBC) [Entitic mass] 28.7 pg Normal 27.0-33.0 The [facility] Comment on above: Performed By: #### 8 5499 #### [facility] [address] [facility] MCHC (RBC) [Mass/Vol] 32.1 g/dL Normal 32.0-35.0 The [facility] Comment on above: Performed By: #### 8 5499 #### [facility] [address] [facility]. [address] MCV (RBC) [Entitic vol] 89.3 fL Normal 82.0-98.0 The [facility] Comment on above: Performed By: #### 8 5499 #### [facility] [address] [facility]. [address] Monocytes (Bld) [#/Vol] 1.0 10*3/uL Normal 0.1-1.0 The [facility] Comment on above: Performed By: #### 8 5499 #### [facility] [address] [facility]. [address] MONOS 7.4 % Normal 5.0-12.0 The [facility] Comment on above: Performed By: #### 8 [id number] #### [facility] 3000 [facility]. [address] Neutrophils/100 WBC (Bld) 78.9 % High 40.0-72.0 The [facility] Comment on above: Performed By: #### 8 [id number] #### [facility] [address] Nucleated RBC/100 WBC (Bld) [Ratio] 0 % Normal 0-0 The [facility] Comment on above: Performed By: #### 8 [id number] #### [facility] PLAT CNT 315 10*3/uL Normal 150-400 The [facility] Comment on above: Performed By: #### 8 [id number] #### [place] [address], [facility] RBC (Bld) [#/Vol] 5.34 10*6/uL High 3.80-5.00 [facility] Comment on above: Performed By: #### 8 [id number] #### [facility] [address] [place] [address], [facility] WBC (Bld) [#/Vol] 13.03 10*3/uL High 4.00-10.60 [facility] Comment on above: Performed By: #### 8 [id number] #### [address] BRAIN WO CONTRASTon 06-30 CT BRAIN WO CONTRAST [facility] Department of Radiology [address] [place], [place] [id number] Patient Name: MONICA ACOSTA : 1960 Sex: F Age: Race: White Pt. Location: [facility] Patient Status: E Ordered Date: 06/30/2020 [...] achievable Electronically signed: Enio Miles. Transcribed by: [email or web address], User Resident: Electronically Signed by: ENIO MILES @ 06/30/2020 07:52 AM Normal The [facility] Comment on above: Order Comment: Bleed CT CERVICAL SPINE WITHOUT CO NTRASTon 06-30-2020 CT CERVICAL SPINE WITHOUT CONTRAST [facility] Department of Radiology [address] [place] [id number] Patient Name: MONICA ACOSTA : 1960 Sex: F Age: Race: White Pt. Location: [facility] Patient Status: Krystle Ordered Date: 06/30/2020 [...] malalignment. Electronically signed: Enio Miles. Transcribed by: [email or web address], User Resident: Electronically Signed by: ENIO MILES @ 06/30/2020 07:54 AM Normal The [facility] Comment on above: Order Comment: No: D o not add to previous draw CT LUMBAR SPINE WO CONTRASTo n 06-30-2020 CT LUMBAR SPINE WO CONTRAST [facility] Department of Radiology [address] [place] [id number] Patient Name: MONICA ACOSTA : 1960 Sex: F Age: Race: White Pt. Location: [facility] Patient Status: E Ordered Date: 06/30/2020 [...] injury. Electronically signed: Enio Miles. Transcribed by: [email or web address], User Resident: Electronically Signed by: ENIO MILES @ 06/30/2020 07:59 AM Normal The [facility] Comment on above: Order Comment: No: D o not add to previous draw CTA CHESTon 06-30-2020 CTA CHEST [facility] Department of Radiology [address] [place] [id number] Patient Name: MONICA ACOSTA : 1960 Sex: F Age: Race: White Pt. Location: [id number] Patient Status: I Ordered Date: 06/30/2020 3:25:00 [...] atelectasis. Electronically signed: Richard Clarke. Transcribed by: [email or web address], User Resident: Electronically Signed by: RICHARD LCARKE @ 06/30/2020 08:13 PM Normal The [facility] Comment on above: Order Comment: No: D o not add to previous draw D DIMER TESTon 06-30-2020 D-DIMER TEST 1.78 mcg/mL FEU High 0.27-0.49 The [facility] Comment on above: Order Comment: No: D o not add to previous draw Result Comment: D-Di pema values of less than 0.50 ug/ml (FEU) are considered to be a negative predictor of thrombosis. However, the D-Dimer result should be used in conjunction with pretest probability and should not be used alone to diagnose a thrombotic event. Performed By: #### 0 0071, [id number] #### [facility] [address] [place] [address], [facility] HEMOGLOBIN A1Con 06-30-2020 HbA1c (Bld) [Mass fraction] 200 mmol/L Normal The [facility] Comment on above: Order Comment: No: D o not add to previous draw Performed By: #### 0 0071, [id number] #### [facility] [address] [facility] [place] [address], [facility] HbA1c (Bld) [Mass fraction] 8.6 % High 4.0-6.0 The [facility] Comment on above: Order Comment: No: D o not add to previous draw Performed By: #### 0 0071, [id number] #### [facility] [address] [place] [address], [facility] LACTATE BLOODon 06-30-2020 Lactate [Moles/Vol] 1.5 mmol/L Normal 0.5-2.2 The [facility] Comment on above: Order Comment: No: D o not add to previous draw Performed By: #### 0 0071, [id number] #### [facility] [address] [facility] [place] [address], [facility] MAGNESIUM BLOODon 06-30-2020 Magnesium [Mass/Vol] 1.9 mg/dL Normal 1.9-2.7 The [facility] Comment on above: Order Comment: No: D o not add to previous draw Performed By: #### 0 0071, [id number] #### [facility] [address] [place] [address], [facility] MRI LUMBAR SPINE W WO CONTRA STon 06-30-2020 MRI LUMBAR SPINE W WO CONTRAST [facility] Department of Radiology [address] [place] [id number] Patient Name: MONICA ACOSTA : 1960 Sex: F Age: Race: White Pt. Location: [facility] Patient Status: I Ordered Date: 06/30/2020 [...] changes. Electronically signed: Dom Carbajal. Transcribed by: [email or web address], User Resident: Electronically Signed by: DOM CARBAJAL @ 06/30/2020 11:09 AM Normal The [facility] Comment on above: Order Comment: No: D o not add to previous draw POC GLUCOSE EDon 06-30-2020 Glucose [Mass/Vol] 388 mg/dL High 70-100 The [facility] Comment on above: Performed By: #### 8 [id number] #### [facility] [address] [place] [address], [facility] POC GLUCOSE LABon 06-30-2020 Glucose [Mass/Vol] 430 mg/dL High 70-100 The [facility] Comment on above: Performed By: #### 8 [id number] ####[facility] [place] [address], [place] Glucose [Mass/Vol] 308 mg/dL High 70-100 The [facility] Comment on above: Performed By: #### 3 [id number] #### [facility] [address] [place] [address], [place] Glucose [Mass/Vol] 348 mg/dL High 70-100 The [facility] Comment on above: Performed By: #### 8 [id number] #### [facility] [address] [place] [address], [place] PROCALCITONINon 06-30-2020 PROCALCITONIN 0.11 ng/mL High 0.00-0.10 The [facility] Comment on above: [...] initial PCT<0.5ng/mL Performed By: #### 0 0071, [id number] #### [facility] 3000 [facility]. [address] PROTHROMBIN TIMEon 0 INR Coag (PPP) [Relative time] 0.89 {INR} Low 0.91-1.16 The [facility] Comment on above: Result Comment: ACCC P [...] 1995;[id number]. Performed By: #### 8 [id number] #### [facility] [address] PT Coag (PPP) [Time] 12.0 s Low 12.3-14.8 [facility] Comment on above: Result Comment: ALL RESULTS MUST BE INTERPRETED WITH RESPECT TO BLOOD DRAWING ARTIFACT OR DILUTION ERROR OF ANTICOAGULANT AT THE TIME OF SAMPLING. Performed By: #### 8 [id number] #### [facility] [address] [facility] [place] [address], [facility] TPO ANTIBODY [id number] 020 TPO ANTIBODY 0.8 IU/mL Normal 0.0-9.0 The [facility] Comment on above: Result Comment: Perf ormed By: [employer] [address] [place] [address] Cancer Registrar: Emilia Arrieta MD TROPONIN-Ion 06-30-2020 Troponin I.cardiac [Mass/Vol] 0.01 ng/mL Normal 0.00-0.04 [facility] Comment on above: Order Comment: No: D o not add to previous draw Result Comment: REFE RENCE RANGES: 0.00 - 0.04 ng/ml NORMAL 0.05 - 0.50 ng/ml INDETERMINATE > 0.50 ng/ml CONSISTENT WITH AN M.I. Performed By: #### 0 0071, [id number] #### [facility] [address] [facility] [place] [address], [facility] Performed By: #### 8 [id number] #### [facility] [address] [facility] [place] [address], [facility] TYPE AND SCREENon 06-30-2020 ABO INTERPRETATION A Normal [facility] Comment on above: Performed By: #### 8 [id number] #### [facility] [address] [facility] [place] [address], [facility] RH INTERPRETATION Positive Normal [facility] Comment on above: Performed By: #### 8 [id number] #### [facility] [address] [facility] [place] [address], [facility] LUMBAR SPINE 2 OR 3 VWSon LUMBAR SPINE 2 OR 3 VWS [facility] Department of Radiology [address] [place], [place] [phone] Patient Name: MONICA ACOSTA : 1960 Sex: [...] reports Electronically signed: Jamie Elizondo. Transcribed by: [email or web address], User Resident: BOGDAN SOTELO Electronically Signed by: JAMIE ELIZONDO @ 06/26/2020 11:06 AM I personally read this/these film(s) with this resident Normal The [facility] Comment on above: Order Comment: No: D o not add to previous draw Vital Signs Date Time Vital Sign Value Performing Clinician Facility 03-14-2025 13:27-0400 Body height 170.2 cm Rudolph Hurt MD Work Phone: [facility] 03-14-2025 13:27-0400 Body mass index (BMI) [Ratio] 28.66 kg/m2 Rudolph Hurt MD Work Phone: [facility] 03-14-2025 13:27-0400 Body temperature 97.11 [degF] Rudolph Hurt MD Work Phone: [facility] 03-14-2025 13:27-0400 Body weight 83.01 kg Rudolph Hurt MD Work Phone: [facility] 03-14-2025 13:27-0400 Diastolic blood pressure 58 mm[Hg] Rudolph Hurt MD Work Phone: [facility] 03-14-2025 13:27-0400 Heart rate 89 /min Rudolph Hurt MD Work Phone: [facility] 03-14-2025 13:27-0400 Respiratory rate 20 /min Rudolph Hurt MD Work Phone: [facility] 03-14-2025 13:27-0400 SaO2% (BldA) [Mass fraction] 95 % Rudolph Hurt MD Work Phone: [facility] 03-14-2025 13:27-0400 Systolic blood pressure 118 mm[Hg] Rudolph Hurt MD Work Phone: [facility] 03-11-2025 12:59-0400 Body height 170.18 cm Rudolph Hurt MD Work Phone: [facility] 03-11-2025 12:59-0400 Body mass index (BMI) [Ratio] 28.5 kg/m2 Rudolph Hurt MD Work Phone: [facility] 03-11-2025 12:59-0400 Body temperature 98.6 [degF] Rudolph Hurt MD Work Phone: [facility] 03-11-2025 12:59-0400 Body weight 82.78 kg Rudolph Hurt MD Work Phone: [facility] 03-11-2025 12:59-0400 Diastolic blood pressure 70 mm[Hg] Rudolph Hurt MD Work Phone: [facility] 03-11-2025 12:59-0400 Heart rate 83 /min Rudolph Hurt MD Work Phone: [facility] 03-11-2025 12:59-0400 Respiratory rate 18 /min Rudolph Hurt MD Work Phone: [facility] 03-11-2025 12:59-0400 SaO2% (BldA) [Mass fraction] 97 % Rudolph Hurt MD Work Phone: [facility] 03-11-2025 12:59-0400 Systolic blood pressure 117 mm[Hg] Rudolph Hurt MD Work Phone: [facility] 01-15-2025 12:06-0400 Body height 170.2 cm Rudolph Hurt MD Work Phone: [facility] 01-15-2025 12:06-0400 Body mass index (BMI) [Ratio] 29.29 kg/m2 Rudolph Hurt MD Work Phone: [facility] 01-15-2025 12:06-0400 Body temperature 96.21 [degF] Rudolph Hurt MD Work Phone: [facility] 01-15-2025 12:06-0400 Body weight 84.82 kg Rudolph Hurt MD Work Phone: [facility] 01-15-2025 12:06-0400 Diastolic blood pressure 70 mm[Hg] Rudolph Hurt MD Work Phone: [facility] 01-15-2025 12:06-0400 Heart rate 88 /min Rudolph Hurt MD Work Phone: [facility] 01-15-2025 12:06-0400 Respiratory rate 20 /min Rudolph Hurt MD Work Phone: [facility] 01-15-2025 12:06-0400 SaO2% (BldA) [Mass fraction] 97 % Rudolph Hurt MD Work Phone: [facility] 01-15-2025 12:06-0400 Systolic blood pressure 140 mm[Hg] Rudolph Hurt MD Work Phone: [facility] 12-31-2024 13:52-0400 Body height 170.2 cm Zeyad Tate MD Work Phone: [facility] 12-31-2024 13:52-0400 Body mass index (BMI) [Ratio] 29.91 kg/m2 Zeyad Tate MD Work Phone: [facility] 12-31-2024 13:52-0400 Body weight 86.64 kg Zeyad Tate MD Work Phone: [facility] 12-31-2024 13:52-0400 Diastolic blood pressure 60 mm[Hg] Zeyad Tate MD Work Phone: [facility] 12-31-2024 13:52-0400 Heart rate 82 /min Zeyad Tate MD Work Phone: [facility] 12-31-2024 13:52-0400 Respiratory rate 18 /min Zeyad Tate MD Work Phone: [facility] 12-31-2024 13:52-0400 SaO2% (BldA) [Mass fraction] 97 % Zeyad Tate MD Work Phone: [facility] 12-31-2024 13:52-0400 Systolic blood pressure 110 mm[Hg] Zeyad Tate MD Work Phone: [facility] 12-10-2024 14:18-0400 Body height 170.2 cm Rudolph Hurt MD Work Phone: [facility] 12-10-2024 14:18-0400 Body mass index (BMI) [Ratio] 29.29 kg/m2 Rudolph Hurt MD Work Phone: [facility] 12-10-2024 14:18-0400 Body temperature 97.11 [degF] Rudolph Hurt MD Work Phone: [facility] 12-10-2024 14:18-0400 Body weight 84.82 kg Rudolph Hurt MD Work Phone: [facility] 12-10-2024 14:18-0400 Diastolic blood pressure 76 mm[Hg] Rudolph Hurt MD Work Phone: [facility] 12-10-2024 14:18-0400 Heart rate 87 /min Rudolph Hurt MD Work Phone: [facility] 12-10-2024 14:18-0400 Respiratory rate 22 /min Ruodlph Hurt MD Work Phone: [facility] 12-10-2024 14:18-0400 SaO2% (BldA) [Mass fraction] 95 % Rudolph Hurt MD Work Phone: [facility] 12-10-2024 14:18-0400 Systolic blood pressure 114 mm[Hg] Rudolph Hurt MD Work Phone: [facility] 11-19-2024 13:38-0400 Body height 170.2 cm Collin Saba MD Work Phone: [facility] 11-19-2024 13:38-0400 Body mass index (BMI) [Ratio] 29.12 kg/m2 Collin Saba MD Work Phone: [facility] 11-19-2024 13:38-0400 Body weight 84.37 kg Collin Saba MD Work Phone: [facility] 11-19-2024 13:38-0400 Diastolic blood pressure 64 mm[Hg] Collin Saba MD Work Phone: [facility] 11-19-2024 13:38-0400 Respiratory rate 18 /min Collin Saba MD Work Phone: [facility] 11-19-2024 13:38-0400 Systolic blood pressure 114 mm[Hg] Collin Saba MD Work Phone: [facility] 09-19-2024 11:19-0500 Body height 170.2 cm Rudolph Hurt MD Work Phone: [facility] 09-19-2024 11:19-0500 Body mass index (BMI) [Ratio] 29.76 kg/m2 Rudolph Hurt MD Work Phone: [facility] 09-19-2024 11:19-0500 Body temperature 96.21 [degF] Rudolph Hurt MD Work Phone: [facility] 09-19-2024 11:19-0500 Body weight 86.18 kg Rudolph Hurt MD Work Phone: [facility] 09-19-2024 11:19-0500 Diastolic blood pressure 66 mm[Hg] Rudolph uHrt MD Work Phone: [facility] 09-19-2024 11:19-0500 Heart rate 102 /min Rudolph Hurt MD Work Phone: [facility] 09-19-2024 11:19-0500 Respiratory rate 22 /min Rudolph Hurt MD Work Phone: [facility] 09-19-2024 11:19-0500 SaO2% (BldA) [Mass fraction] 91 % Rudolph Hurt MD Work Phone: [facility] 09-19-2024 11:19-0500 Systolic blood pressure 124 mm[Hg] Rudolph Hurt MD Work Phone: [facility] 08-21-2024 13:37-0500 Body height 170.2 cm Zeyad Tate MD Work Phone: [facility] 08-21-2024 13:37-0500 Body mass index (BMI) [Ratio] 30.7 kg/m2 Zeyad Tate MD Work Phone: [facility] 08-21-2024 13:37-0500 Body weight 88.91 kg Zeyad Tate MD Work Phone: [facility] 08-21-2024 13:37-0500 Diastolic blood pressure 66 mm[Hg] Zeyad Tate MD Work Phone: [facility] 08-21-2024 13:37-0500 Heart rate 83 /min Zeyad Tate MD Work Phone: [facility] 08-21-2024 13:37-0500 Respiratory rate 18 /min Zeyad Tate MD Work Phone: [facility] 08-21-2024 13:37-0500 Systolic blood pressure 100 mm[Hg] Zeyad Tate MD Work Phone: [facility] 04-13-2024 11:43-0400 Body height 170.2 cm Zenemanuel Cornejothao DO Work Phone: [facility] 04-13-2024 11:43-0400 Body mass index (BMI) [Ratio] 28.66 kg/m2 Zen Furlong DO Work Phone: [facility] 04-13-2024 11:43-0400 Body temperature 98.01 [degF] Zen Chantallong DO Work Phone: [facility] 04-13-2024 11:43-0400 Body weight 83.01 kg Zen Furlong DO Work Phone: [facility] 04-13-2024 11:43-0400 Diastolic blood pressure 60 mm[Hg] Zen Furlong DO Work Phone: [facility] 04-13-2024 11:43-0400 Heart rate 88 /min Zen Furlong DO Work Phone: [facility] 04-13-2024 11:43-0400 SaO2% (BldA) [Mass fraction] 97 % Zen Furlong DO Work Phone: [facility] 04-13-2024 11:43-0400 Systolic blood pressure 100 mm[Hg] Zen Furlong DO Work Phone: [facility] 03-26-2024 13:20-0400 Body height 170.2 cm Zen Furlong DO Work Phone: [facility] 03-26-2024 13:20-0400 Body mass index (BMI) [Ratio] 28.72 kg/m2 Zen Furlong DO Work Phone: [facility] 03-26-2024 13:20-0400 Body temperature 97.9 [degF] Zen Furlong DO Work Phone: [facility] 03-26-2024 13:20-0400 Body weight 83.19 kg Zen Furlong DO Work Phone: [facility] 03-26-2024 13:20-0400 Diastolic blood pressure 60 mm[Hg] Zen Furlong DO Work Phone: [facility] 03-26-2024 13:20-0400 Heart rate 81 /min Ezn Furlong DO Work Phone: [facility] 03-26-2024 13:20-0400 SaO2% (BldA) [Mass fraction] 97 % Zen Furlong DO Work Phone: [facility] [employer] [facility] 03-26-2024 13:20-0400 Systolic blood pressure 110 mm[Hg] Zen Furlong DO Work Phone: [facility] 02-09-2024 16:28-0400 Body height 170.2 cm Zen Furlong DO Work Phone: [facility] 02-09-2024 16:28-0400 Body mass index (BMI) [Ratio] 28.33 kg/m2 Zen Furlong DO Work Phone: [facility] [employer] [facility] 02-09-2024 16:28-0400 Body temperature 98.2 [degF] Zen Furlong DO Work Phone: [facility] 02-09-2024 16:28-0400 Body weight 82.06 kg Zen Furlong DO Work Phone: [facility] 02-09-2024 16:28-0400 Diastolic blood pressure 60 mm[Hg] Zen Furlong DO Work Phone: [facility] 02-09-2024 16:28-0400 Heart rate 84 /min Zen Furlong DO Work Phone: [facility] [employer] [facility] 02-09-2024 16:28-0400 Respiratory rate 18 /min Zen Furlong DO Work Phone: [facility] 02-09-2024 16:28-0400 SaO2% (BldA) [Mass fraction] 95 % Zen Furlong DO Work Phone: [facility] 02-09-2024 16:28-0400 Systolic blood pressure 110 mm[Hg] Zen Furlong DO Work Phone: [facility] 12-05-2023 12:52-0400 Body height 170.2 cm Demetra Porter BECCA Work Phone: [facility] 12-05-2023 12:52-0400 Body mass index (BMI) [Ratio] 28.16 kg/m2 Demetra [employer] [facility] 12-05-2023 12:52-0400 Body temperature 97.59 [degF] Demetra [employer] [facility] 12-05-2023 12:52-0400 Body weight 81.56 kg Demetra [employer] Work Phone: [facility] 12-05-2023 12:52-0400 Diastolic blood pressure 58 mm[Hg] Demetra [employer] [facility] 12-05-2023 12:52-0400 Heart rate 84 /min Demetra [employer] [facility] 12-05-2023 12:52-0400 Respiratory rate 18 /min Demetra [employer] [facility] 12-05-2023 12:52-0400 SaO2% (BldA) [Mass fraction] 98 % Demetra [employer] Work [facility] 12-05-2023 12:52-0400 Systolic blood pressure 96 mm[Hg] Demetra [employer] Work Phone: [email or web address] 07-27-2021 12:15-0500 Body height 170.18 cm Veronica Ginty Other [employer] Other 07-27-2021 12:15-0500 Body mass index (BMI) [Ratio] 27.88 kg/m2 Veronica Ginty Other [employer] Other 07-27-2021 12:15-0500 Body temperature 96 [degF] Veronica Ginty Other [employer] Other 07-27-2021 12:15-0500 Body weight 80.74 kg Veronica Mcneill Other [employer] Other 07-27-2021 12:15-0500 SaO2% (BldA) [Mass fraction] 96 % Veronica Mcneill Other [employer] Other Encounters Encounter Date Encounter Type Care Provider Facility Start: 05-08-2025 End: 05-08-[address] [facility] Start: 03-14-2025 End: 03-14-2025 Og Hurt MD Work Phone: [facility] Start: 03-14-2025 End: 03-14-2025 Og Hurt MD Work Phone: [facility] Start: 03-14-2025 End: 03-14-2025 Office outpatient visit 25 minutes Rudolph Hurt MD Work Phone: [facility] Comment on above: MDD (major depressiv e disorder), recurrent episode, moderate (HCC) (Primary Dx); Type I diabetes mellitus with polyneuropathy (HCC); Rheumatoid arthritis involving multiple sites with positive rheumatoid factor (HCC); Type 1 diabetes mellitus with hyperglycemia (HCC); POTS (postural orthostatic tachycardia syndrome); Coronary artery disease involving [place] coronary artery of [place] heart without angina pectoris Start: 03-14-2025 End: 03-14-2025 ambulatory RUDOLPH HURT Not Available Start: 03-11-2025 End: 03-11-2025 ambulatory Rudolph Hurt MD Work Phone: [facility] Work Phone: Start: 03-11-2025 End: 03-11-2025 Patient encounter procedure Silvia Blank PI/SENIOR RESEARCH ASSOCIATE [facility] Work Phone: Start: 02-25-2025 End: 02-26-2025 Refill Rudolph Hurt MD Work Phone: [facility] Comment on above: Coronary artery dise ase involving [place] coronary artery of [place] heart without angina pectoris (Primary Dx); Rheumatoid arthritis involving multiple sites with positive rheumatoid factor (HCC) Start: 01-26-2025 End: 01-29-2025 Refill Rudolph Hurt MD Work Phone: [facility] Comment on above: POTS (postural ortho [...] 25 minutes Rudolph Hurt MD Work Phone: [facility] Comment on above: Chest pain at rest ( Primary Dx); SOB (shortness of breath) on exertion; Coronary artery disease involving [place] coronary artery of [place] heart without angina pectoris (CMS/HCC); Hypersomnia Start: 01-15-2025 End: 01-15-2025 ambulatory RUDOLPH HURT Not Available Start: 12-31-2024 End: 12-31-2024 Office outpatient visit 40 minutes Zeyad Tate MD Work Phone: [facility] Comment on above: Type 1 diabetes ciara itus with hyperglycemia (HCC) (CMS/HCC) (Primary Dx); Essential (primary) hypertension (CMS/HCC); Vitamin D deficiency, unspecified; Dietary counseling and surveillance; Mixed hyperlipidemia (CMS/HCC); Presence of insulin pump (external) (internal); 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); Encounter for fitting or adjustment of insulin pump Start: 12-31-2024 End: 12-31-2024 Bamboo flowsheet Zeyad Tate MD Work Phone: [facility] Start: 12-31-2024 End: 12-31-2024 Bamboo flowsaneta Tate MD Work Phone: [facility] Start: 12-31-2024 End: 12-31-2024 ambulatory ZEYAD TATE Not Available Start: 12-27-2024 End: 12-27-2024 Aubreyill Rudolph Hurt MD Work Phone: [facility] Comment on above: Rheumatoid arthritis involving multiple sites with positive rheumatoid factor (CMS/HCC) Start: 12-10-2024 End: 12-10-2024 Office outpatient visit 25 minutes Rudolph Hurt MD Work Phone: [facility] Comment on above: Type I diabetes ciara itus with polyneuropathy (CMS/HCC) (Primary Dx); Type 1 diabetes mellitus with hyperglycemia (HCC) (CMS/HCC); POTS (postural orthostatic tachycardia syndrome); Rheumatoid arthritis involving multiple sites with positive rheumatoid factor (CMS/HCC); Coronary artery disease involving bishop [place] coronary artery of [place] heart without angina pectoris (CMS/HCC); Hypersomnia Start: [...] 12-06-2024 ambulatory Zen Flores DO Work Phone: [facility] Work Phone: Start: 12-06-2024 End: 12-06-2024 Departed Referred Zen Flores DO Work Phone: [facility] Start: 12-05-2024 [...] Refill Rudolph Hurt MD Work Phone: [facility] Comment on above: Rheumatoid arthritis involving multiple sites with positive rheumatoid factor (CMS/HCC) Start: 11-30-2024 End: 11-30-2024 Clinisync Result Encounter Generic External Data Provider [facility] External Department Unsolicited Start: 11-30-2024 End: 11-30-2024 Clinisync Result Encounter Generic External Data Provider [facility] External Department Unsolicited Start: 11-30-2024 End: 11-30-2024 ambulatory [facility] Start: 11-30-2024 End: 11-30-2024 Encounter for preprocedural cardiovascular examination [facility] Start: 11-19-2024 End: 11-19-2024 ambulatory [facility] Start: 11-19-2024 End: 11-19-2024 Office consultation new/estab patient 80 min Collin Saba MD Work Phone: [facility] Rheumatology, A Department of [facility] Comment on above: Rheumatoid arthritis involving multiple sites, unspecified whether rheumatoid factor present ([facility]) (Primary Dx); Long-term use of Plaquenil; Long-term use of leflunomide therapy Start: 11-19-2024 End: 11-19-2024 ambulatory COLLINKATLYN SULLIVANAFA [facility] Start: 11-12-2024 End: 11-12-2024 Refill Rudolph Hurt MD Work Phone: [facility] Comment on above: Rheumatoid arthritis involving multiple sites with positive rheumatoid factor (CMS/HCC) Start: 10-19-2024 End: 10-19-2024 Refill Rudolph Hurt MD Work Phone: [facility] Comment on above: Rheumatoid arthritis involving multiple sites with positive rheumatoid factor (CMS/HCC) Start: 10-15-2024 End: 10-15-[address] [facility] Start: 09-19-2024 End: 09-19-2024 Bamboo flowsheet [...] with polyneuropathy (CMS/HCC); Coronary artery disease involving [place] coronary artery of [place] heart without angina pectoris (CMS/HCC); PAD (peripheral artery disease) (CMS/HCC); POTS (postural orthostatic tachycardia syndrome); Type 1 diabetes mellitus with other circulatory complications (CMS/HCC); Type 1 diabetes mellitus with hyperglycemia (HCC) (CMS/HCC); Encounter for long-term (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 medications; Dyslipidemia (CMS/HCC); [facility] (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 (CMS/HCC) Start: 09-19-2024 End: 09-19-2024 ambulatory RUDOLPH HURT Not Available Start: 08-21-2024 End: 08-21-2024 Bamboo flowsheet Zeyad Tate MD Work Phone: [facility] Start: 08-21-2024 End: 08-21-2024 Bamboo flowsheet Zeyad Tate MD Work Phone: [facility] Start: 08-21-2024 End: 08-21-2024 Office outpatient new 60 minutes Zeyad Tate MD Work Phone: [facility] Comment on above: Type 1 diabetes ciara itus with hyperglycemia (HCC) (CMS/HCC) (Primary Dx); Essential (primary) hypertension (CMS/HCC); Vitamin D deficiency, unspecified; Dietary counseling and surveillance; Mixed hyperlipidemia (CMS/HCC); Presence of insulin pump (external) (internal); 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 Start: 07-09-2024 End: 07-09-[address] [facility] Start: 06-11-2024 End: 06-11-[address] [facility] Start: 05-14-2024 End: 05-14-[address] [facility] Start: 04-30-2024 End: 05-02-2024 Telephone encounter Ana Edwards CMA [facility] Start: 04-16-2024 End: 04-16-2024 Orders Only Zen Flores DO Work Phone: [facility] Start: 04-13-2024 End: 04-13-2024 ambulatory ZEN FLORES [facility] Start: 04-13-2024 End: 04-13-2024 Office outpatient visit 25 minutes Zen Flores DO Work Phone: [facility] Comment on above: Stage 2 chronic kidn ey disease due to type 1 diabetes mellitus ([facility]) (Primary Dx); Rheumatoid arthritis involving multiple sites, unspecified whether rheumatoid factor present ([facility]); 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 ([facility]); Diabetic polyneuropathy associated with type 1 diabetes mellitus ([facility]); Hyperkalemia; Compression fracture of L1 vertebra, sequela Start: 04-13-2024 End: 04-13-2024 ambulatory [facility] Start: 04-03-2024 End: 04-03-2024 Orders Only Zen Borden DO Work Phone: [facility] Comment on above: Medication monitorin g encounter (Primary Dx); Compression fracture of L1 vertebra, sequela; Rheumatoid arthritis involving multiple sites, unspecified whether rheumatoid factor present ([facility]) Start: 04-03-2024 End: 04-03-2024 Refill Radha Ohara PI/SENIOR RESEARCH ASSOCIATE-FINANCE ASSOCIATE Work Phone: [facility] Internal Medicine - Family Medicine Start: 03-30-2024 End: 04-02-2024 Telephone encounter Ana Edwards CMA [facility] Internal Medicine - Family Medicine Start: 03-29-2024 End: 03-29-2024 Telephone encounter Zen Borden DO Work Phone: [facility] Internal Medicine - Family Medicine Start: 03-27-2024 End: 03-27-2024 ambulatory [facility] Start: 03-27-2024 End: 03-29-2024 ambulatory [facility] Comment on above: Rheumatoid arthritis involving multiple sites, unspecified whether rheumatoid factor present ([facility]) Start: 03-26-2024 End: 03-26-2024 ambulatory [facility] Start: 03-26-2024 End: 03-26-2024 Office outpatient visit 25 minutes Zen Flores DO Work Phone: [facility] Comment on above: Compression fracture of L1 vertebra, sequela (Primary Dx); Rheumatoid arthritis involving multiple sites, unspecified whether rheumatoid factor present ([facility]); Other fatigue; Medication monitoring encounter; Primary hypertension; Type 1 diabetes mellitus with diabetic polyneuropathy ([facility]); Overweight Start: 03-26-[address] [facility] Start: 03-20-2024 End: 03-20-2024 Refill Zen Bordenng DO Work Phone: [facility] - [facility] Oncology Start: 02-27-2024 End: 02-27-2024 [...] initial encounter Start: 02-09-2024 End: 02-09-2024 ambulatory [facility] Start: 02-07-2024 End: 02-09-2024 Telephone encounter Demetra Macario [place]-MYRA Work Phone: [facility] Start: 01-27-2024 End: 01-27-2024 Orders Only Zen Bordenng DO Work Phone: [facility] Start: 01-26-2024 End: 01-27-2024 Refill Demetra Macario [place]-PROP DRAWER Work Phone: [facility] Comment on above: Rheumatoid arthritis involving multiple sites, unspecified whether rheumatoid factor present ([facility]) Start: 12-26-2023 End: 12-27-2023 Refill Zen Bordenng DO Work Phone: [facility] - [facility] Oncology Start: 12-08-2023 Refill Dario Cai Sarahallanchar Barker Work Phone: [facility] Start: 12-05-2023 End: 12-05-2023 ambulatory [facility] Thea PORTER [facility] Start: 12-05-2023 End: 12-05-2023 Office outpatient visit 25 minutes Demetra Porter PI/SENIOR RESEARCH ASSOCIATE-PROP DRAWER Work Phone: [facility] Comment on above: Rheumatoid arthritis involving multiple sites, unspecified whether rheumatoid factor present ([facility]) (Primary Dx); Status post partial amputation of left foot ([facility]); Diabetic polyneuropathy associated with type 2 diabetes mellitus ([facility] Severe depression ([facility]); PAD (peripheral artery disease) ([facility]); Compression fracture of L1 vertebra with routine healing, subsequent encounter; Mixed hyperlipidemia Start: 12-05-2023 End: 12-05-2023 ambulatory RICH [facility] Start: 11-29-2023 Orders Only Demetra Porter PI/SENIOR RESEARCH ASSOCIATE-PROP DRAWER Work Phone: [facility] Start: 11-15-2023 Orders Only Demetra Porter PI/SENIOR RESEARCH ASSOCIATE-PROP DRAWER Work Phone: [facility] Start: 11-14-2023 Refill Zen Kemar Furlo ng DO Work Phone: [facility] Comment on above: Compression fracture of L1 vertebra with routine healing, subsequent encounter Start: 10-31-2023 Refill Zen G Furlo ng DO Work Phone: [facility] C[facility] Comment on above: Compression fracture of L1 vertebra with routine healing, subsequent encounter Start: 10-16-2023 Refill Zen G Furlo ng DO Work Phone: [facility] Comment on above: Compression fracture of L1 vertebra with routine healing, subsequent encounter Start: 10-04-2023 Refill Zen G Furlo ng DO Work Phone: [facility] Comment on above: Compression fracture of L1 vertebra with routine healing, subsequent encounter Start: 09-12-2023 Refill Zen Kemar Michi burns DO Work Phone: [facility] Comment on above: [...] Start: 05-31-2022 Encounter for preprocedural cardiovascular examination [facility] Jero BRANNON [facility] Start: 05-31-2022 Encounter for preprocedural laboratory examination [facility] Jero [facility] Start: 05-31-2022 End: 06-03-[address] [...] Facility:[facility]1 Start: 03-25-2022 End: 03-26-2022 ambulatory RADHA FELIXCHRSITINA Facility:[facility] Start: 03-18-2022 End: 03-19-2022 ambulatory RADHA FELIXCHRISTINA Facility:[facility] Start: 03-14-2022 Encounter for preprocedural laboratory examination RADHA BRANNON [facility] Start: 03-13-2022 End: 03-15-2022 Evaluation and [...] 07-27-2021 End: 07-27-2021 ambulatory Veronica Mcneill Other [employer] Other Start: 07-27-2021 Office outpatient vi sit 15 minutes Veronica Ginty [facility] Start: 07-17-2020 End: 08-01-2020 Patient encounter procedure REFERRED SELF Facility:[facility] Start: 06-30-2020 End: 07-14-2020 Evaluation and management of inpatient REFERRED SELF Facility:[facility] Procedures Date Procedure Procedure Detail [...] #### 2 4331-1, [id number] #### [facility] ([id number]) [address] [place] [address] Start: 08-21-2024 Gluc bld gluc mntr d ev cleared fda spec home use Zeyad Taet MD Work Phone: Start: 04-13-2024 Adult depression [...] of cholecystectomy History of cholecystectomy [email or web address] Work Phone: Start: 05-21-2022 History of coronary artery bypass grafting History of coronary artery bypass surgery [email or web address] Work Phone: Start: 05-21-2022 History of placement of stent for coronary artery disease History of coronary artery stent placement [email or web address] Work Phone: Start: 05-05-2022 Microscopic examinat ion of blood, culture RADHA BRANNON Comment on above: Performed By: #### B [id number] ####[facility] [id number] [id number] Clement Start: 03-11-2022 Detachment at Left F [...] above: Performed By: #### [id number] #### [facility] [address] Plan of Treatment Date Care Activity Detail Author Start: 09-17-2029 DTaP,Tdap and Td Vaccines (2 - Td or Tdap) DTaP,Tdap and Td Vaccines (2 - Td or Tdap) [facility] Start: 11-19-2025 Adult BMI Screening Adult BMI Screening [facility] Start: 09-19-2025 Screening for malignant neoplasm of breast Mammogram [facility] Comment on above: Postponed from 1999 (Patient Refus ed) Start: 09-19-2025 Screening for malignant neoplasm of colon Colorectal Cancer Screening [facility] Comment on above: Postponed from 1959 (Patient Refus ed) Start: 09-16-2025 End: 09-16-2025 Patient encounter procedure 09/16/2025 1:15 PM EST Office Visit [facility] [address] [place] [address] Rudolph Hurt MD [address] [place] [address] [facility] Start: 07-02-2025 Hemoglobin A1c measurement Diabetes: Hemoglobin A1C [facility] Start: 06-11-2025 Pneumococcal Vaccine: 65+ Years (3 of 3 - PCV20 or PCV21) Pneumococcal Vaccine: 65+ Years (3 of 3 - PCV20 or PCV21) [facility] Start: 05-06-2025 Influenza vaccination [facility] Start: 04-13-2025 Adult BMI Screening Adult BMI Screening [facility] Start: 04-13-2025 Depression Screening Depression Screening [facility] Start: 04-13-2025 Tobacco Screening Tobacco Screening [facility] Start: 04-01-2025 End: 04-01-2025 Patient encounter procedure 04/01/2025 2:10 PM EDT [facility] [address] [place] [address] Zeyad Tate MD [address] [place] [address] [facility] Start: 03-27-2025 Urine screening for protein Diabetes: Urine Protein Screening [facility] Start: 03-26-2025 Adult BMI Screening Adult BMI Screening [facility] Start: 03-26-2025 Depression Screening Depression Screening [facility] Start: 03-26-2025 Tobacco Screening Tobacco Screening [facility] Start: 03-14-2025 End: 03-14-2025 Patient encounter procedure [facility] Comment on above: Arrived Start: 02-19-2025 Hemoglobin A1c measurement Diabetes: Hemoglobin A1C [facility] Start: 02-09-2025 Screening for malignant neoplasm of colon Colonoscopy [facility] Comment on above: Postponed from 11/19/2022 (Patient Refus ed) Start: 02-09-2025 Tobacco Screening Tobacco Screening [facility] Start: 02-08-2025 Adult BMI Screening Adult BMI Screening [facility] Start: 02-08-2025 Depression Screening Depression Screening [facility] Start: 02-08-2025 Tobacco Screening Tobacco Screening [facility] Start: 01-15-2025 End: 01-15-2027 NM Heart Perfusion W single state of exercise Stress test with myocardial perfusion Cardiac Nuclear Medicine Routine Chest pain at rest Coronary artery disease involving bishop paiute coronary artery of bishop [place] heart without angina pectoris ([facility]CC) Expected: 01/15/2025 (Approximate), Expires: 01/15/2027 [facility] Comment on above: Expected: 01/15/2025 (Approximate), Expi res: 01/15/2027 Start: 12-31-2024 End: 12-31-2024 Patient encounter procedure [facility] Comment on above: Type 1 diabetes mellitus with hyperglyce matias (HCC) (CMS/HCC) Start: 12-20-2024 End: 11-19-2025 CBC W Auto Differential panel - Blood CBC auto differential Lab Routine Rheumatoid arthritis involving multiple sites, unspecified whether rheumatoid factor present ([facility]) Long-term use of leflunomide therapy Expected: 12/20/2024 (Approximate), Expires: 11/19/2025 [facility] Comment on above: Expected: 12/20/2024 (Approximate), Expi res: 11/19/2025 Start: 12-20-2024 End: 11-19-2025 Comprehensive metabolic 2000 panel - Serum or Plasma Comprehensive metabolic panel Lab Routine Rheumatoid arthritis involving multiple sites, unspecified whether rheumatoid factor present ([facility]) Long-term use of leflunomide therapy Expected: 12/20/2024 (Approximate), Expires: 11/19/2025 [facility] Comment on above: Expected: 12/20/2024 (Approximate), Expi res: 11/19/2025 Start: 12-19-2024 End: 12-19-2024 Patient encounter procedure 12/19/2024 3:00 PM EDT Office Visit [facility] Rheumatology, A Department of [facility] [address] [address] Collin Saba MD [address] [facility] Rheumatology, A Department of [facility] Start: 12-11-2024 End: 12-11-2024 Patient encounter procedure 12/11/2024 1:50 PM EDT Office Visit [facility] [address] [place] [address] Zeyad Tate MD [address] [place] [address] [facility] Start: 12-10-2024 End: 12-10-2024 Patient encounter procedure [facility] Comment on above: Arrived Start: 12-04-2024 Adult BMI Screening Adult BMI Screening [facility] Start: 12-04-2024 Depression Screening Depression Screening [facility] Start: 12-04-2024 Tobacco Screening Tobacco Screening [facility] Start: 12-03-2024 End: 11-19-2025 CBC W Auto Differential panel - Blood CBC auto differential Lab Routine Rheumatoid arthritis involving multiple sites, unspecified whether rheumatoid factor present ([facility]) Long-term use of leflunomide therapy Expected: 12/03/2024 (Approximate), Expires: 11/19/2025 [facility] Comment on above: Expected: 12/03/2024 (Approximate), Expi res: 11/19/2025 Start: 12-03-2024 End: 11-19-2025 Comprehensive metabolic 2000 panel - Serum or Plasma Comprehensive metabolic panel Lab Routine Rheumatoid arthritis involving multiple sites, unspecified whether rheumatoid factor present ([facility]) Long-term use of leflunomide therapy Expected: 12/03/2024 (Approximate), Expires: 11/19/2025 [facility] Comment on above: Expected: 12/03/2024 (Approximate), Expi res: 11/19/2025 Start: 11-27-2024 End: 11-27-2024 Patient encounter procedure 11/27/2024 1:40 PM EDT [facility] [address] [place] [address] Zeyad Tate MD [address] [place] [address] [facility] Start: 11-19-2024 End: 11-19-2025 C-reactive protein C-reactive protein Lab Routine Rheumatoid arthritis involving multiple sites, unspecified whether rheumatoid factor present ([facility]) Expected: 11/19/2024 (Approximate), Expires: 11/19/2025 [facility] Comment on above: Expected: 11/19/2024 (Approximate), Expi res: 11/19/2025 Start: 11-19-2024 End: 11-19-2025 CBC W Auto Differential panel - Blood [facility] Comment on above: Expected: 11/19/2024 (Approximate), Expi res: 11/19/2025 Start: 11-19-2024 End: 11-19-2025 Comprehensive metabolic 2000 panel - Serum or Plasma [email or web address] Comment on above: Expected: 11/19/2024 (Approximate), Expi res: 11/19/2025 Start: 11-19-2024 End: 11-19-2025 Cyanocobalamin vitamin b-12 Vitamin B12 Lab Routine Rheumatoid arthritis involving multiple sites, unspecified whether rheumatoid factor present ([facility]) Expected: 11/19/2024, Expires: 11/19/2025 [email or web address] Comment on above: Expected: 11/19/2024, Expires: Start: 11-19-2024 End: 11-19-2025 Erythrocyte sedimentation rate Erythrocyte Sedimentation Rate (ESR) Lab Routine Rheumatoid arthritis involving multiple sites, unspecified whether rheumatoid factor present ([facility]) Expected: 11/19/2024 (Approximate), Expires: 11/19/2025 [email or web address] Comment on above: Expected: 11/19/2024 (Approximate), Expi res: 11/19/2025 Start: 11-19-2024 Hemoglobin A1c measurement Diabetes: Hemoglobin A1C [facility] Start: 11-19-2024 End: 11-19-2025 Thyrotropin [Units/volume] in Serum or Plasma [email or web address] Comment on above: Expected: 11/19/2024, Expires: Start: 11-19-2024 End: 11-19-2025 Vitamin D 25 hydroxy Vitamin D 25 hydroxy Lab Routine Rheumatoid arthritis involving multiple sites, unspecified whether rheumatoid factor present ([facility]) Expected: 11/19/2024, Expires: 11/19/2025 [employer] Work Phone: Comment on above: Expected: 11/19/2024, Expires: Start: 11-19-2024 End: 11-19-2025 XR Bones Limited Survey Views [email or web address] Comment on above: Expected: 11/19/2024, Expires: Start: 11-19-2024 End: 11-19-2025 XR Chest PA and Lateral [email or web address] Comment on above: Expected: 11/19/2024, Expires: Start: 09-19-2024 End: 09-19-2025 Basic metabolic 1998 panel - Serum or Plasma Basic metabolic panel Lab Routine Encounter for long-term (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 medications Expected: 09/19/2024 (Approximate), Expires: 09/19/2025 [facility] Comment on above: Expected: 09/19/2024 (Approximate), Expi res: 09/19/2025 Start: 09-19-2024 End: 09-19-2025 CBC W Auto Differential panel - Blood CBC and differential Lab Routine Encounter for long-term (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 medications Expected: 09/19/2024 (Approximate), Expires: 09/19/2025 [facility] Comment on above: Expected: 09/19/2024 (Approximate), Expi res: 09/19/2025 Start: 09-19-2024 End: 09-19-2025 Erythrocyte sedimentation rate Sedimentation rate, automated Lab Routine Rheumatoid arthritis involving multiple sites with positive rheumatoid factor (CMS/HCC) Expected: 09/19/2024 (Approximate), Expires: 09/19/2025 [facility] Comment on above: Expected: 09/19/2024 (Approximate), Expi res: 09/19/2025 Start: 09-19-2024 End: 09-19-2025 Hepatic function 2000 panel - Serum or Plasma Hepatic function panel Lab Routine Encounter for long-term (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 medications Expected: 09/19/2024 (Approximate), Expires: 09/19/2025 [facility] Comment on above: Expected: 09/19/2024 (Approximate), Expi res: 09/19/2025 Start: 09-19-2024 End: 09-19-2025 Lipid 1996 panel - Serum or Plasma Lipid panel Lab Routine Dyslipidemia (CMS/HCC) Expected: 09/19/2024 (Approximate), Expires: 09/19/2025 [facility] Comment on above: Expected: 09/19/2024 (Approximate), Expi res: 09/19/2025 Start: 09-19-2024 End: 09-19-2025 Rheumatoid factor [Units/volume] in Serum or Plasma Rheumatoid factor Lab Routine Rheumatoid arthritis involving multiple sites with positive rheumatoid factor (CMS/HCC) Expected: 09/19/2024 (Approximate), Expires: 09/19/2025 [facility] Work Phone: Comment on above: Expected: 09/19/2024 (Approximate), Expi res: 09/19/2025 Start: 09-19-2024 End: 09-19-2024 Patient encounter procedure 09/19/2024 11:30 AM EST Office Visit [facility] [address] [place] [address] Rudolph Hurt MD [address] [place] [id number] Arrived [facility] Comment on above: Arrived Start: 08-21-2024 End: 08-21-2024 Patient encounter procedure 08/21/2024 1:20 PM EST Office Visit [facility] [address] [place] [id number] Zeyad Tate MD [address] [place] [address] Arrived [facility] Comment on above: Arrived Start: 07-12-2024 Adult BMI Screening Adult BMI Screening [facility] Start: 07-12-2024 Depression Screening Depression Screening [facility] Start: 07-12-2024 Medicare Annual Wellness (AWV) Medicare Annual Wellness (AWV) [facility] Start: 07-12-2024 Tobacco Screening Tobacco Screening [facility] Start: 06-30-2024 Glaucoma screening Diabetic Ophthalmology Exam [facility] Start: 05-06-2024 Influenza vaccination [facility] Start: 04-17-2024 End: 04-17-2024 Patient encounter procedure 04/17/2024 11:45 AM EDT Office Visit [facility] [address] [id number] Collin Saba MD [address] [facility] Start: 04-13-2024 End: 04-13-2024 Patient encounter procedure 04/13/2024 11:30 AM EDT Office Visit [facility] - Family Medicine [address] [place] [address] Zen Flores, DO [address], [place] [address] [facility] - [facility] Medicine Start: 03-26-2024 End: 03-26-2024 Patient encounter procedure 03/26/2024 1:30 PM EDT Office Visit [facility] - Family Medicine [address] [place] [address] Zen Flores, DO [address], [place] [address] [facility] Internal [facility] - Family Medicine Start: 03-19-2024 End: 03-19-2024 Patient encounter procedure 03/19/2024 2:15 PM EDT Office Visit [facility] Internal [facility] - Family Medicine [address] [place] [address] Zen Flores, DO [address], [place] [address] [facility] Internal Medicine - Family Medicine Start: 11-20-2023 Screening for malignant neoplasm of breast Mammogram [facility] [facility] Comment on above: Postponed from 11/19/2022 (Patient Refus ed) Start: 11-20-2023 Screening for malignant neoplasm of colon Colonoscopy [facility] Comment on above: Postponed from 11/19/2022 (Patient Refus ed) Start: 11-10-2023 End: 11-10-2023 Patient encounter procedure 11/10/2023 1:50 PM EST Office Visit [facility] [address] [place] [address] Zen Flores, DO [address], [facility] [place] [address] [facility] - Family Medicine Start: 09-13-2023 Diabetic foot examination Diabetic Foot Exam [facility] Start: 11-19-2022 Screening for malignant neoplasm of breast Mammogram [facility] Start: 11-19-2022 Screening for malignant neoplasm of colon Colonoscopy [facility] Start: 09-30-2020 Hemoglobin A1c measurement Diabetes: Hemoglobin A1C [facility] Start: 12-20-2009 Administration of varicella zoster vaccine Zoster (Shingles) Vaccine (1 of 2) [facility] Start: 1999 Screening for malignant neoplasm of breast Mammogram [facility] Start: 12-20-1989 Screening for malignant neoplasm of cervix [facility] Start: 12-20-1980 Screening for malignant neoplasm of cervix Pap Smear [facility] Start: 12-20-1977 Adult BMI Follow Up Plan Adult BMI Follow Up Plan [facility] Start: 12-20-1969 Glaucoma screening Diabetes: Retinopathy Screening [facility] Start: 1959 Screening for malignant neoplasm of colon [facility] End: 04-13-2025 Basic metabolic 2000 panel - Serum or Plasma Basic Metabolic Panel Lab Routine 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 Work Phone: Comment on above: 1 Occurrences starting 04/13/2024 until 04/13/2025 C reactive protein [Mass/volume] in Serum or Plasma C-reactive protein Lab Routine Rheumatoid arthritis involving multiple sites, unspecified whether rheumatoid factor present ([facility]) 11/19/2024 2:38 PM EDT [facility] End: 03-26-2025 CBC panel - Blood by Automated count CBC Lab Routine Other fatigue 1 Occurrences starting 03/26/2024 until 03/26/2025 [facility] Comment on above: 1 Occurrences starting 03/26/2024 until 03/26/2025 End: 11-19-2025 CCP Ab CCP Ab Lab Routine Rheumatoid arthritis involving multiple sites, unspecified whether rheumatoid factor present ([facility]) 1 Occurrences starting 11/19/2024 until 11/19/2025 [email or web address] Comment on above: 1 Occurrences starting 11/19/2024 until 11/19/2025 Cobalamin (Vitamin B 12) [Mass/volume] in Serum or Plasma Vitamin B12 Lab Routine Rheumatoid arthritis involving multiple sites, unspecified whether rheumatoid factor present ([facility]) 11/19/2024 2:38 PM EDT [email or web address] End: 03-26-2025 Comprehensive metabolic 2000 panel - Serum or Plasma Comprehensive metabolic panel Lab Routine Primary hypertension 1 Occurrences starting 03/26/2024 until 03/26/2025 [email or web address] Comment on above: 1 Occurrences starting 03/26/2024 until 03/26/2025 Cyclic citrullinated peptide IgG Ab [Units/volume] in Serum or Plasma CCP Ab Lab Routine Rheumatoid arthritis involving multiple sites, unspecified whether rheumatoid factor present ([facility]) 11/19/2024 2:38 PM EDT [email or web address] End: 03-26-2025 Drug Screen, Urine Drug Screen, Urine Lab Routine Medication monitoring encounter 1 Occurrences starting 03/26/2024 until 03/26/2025 [employer] Work Phone: Comment on above: 1 Occurrences starting 03/26/2024 until 03/26/2025 End: 04-03-2025 Drug Screen, Urine Drug Screen, Urine Lab Routine Medication monitoring encounter Rheumatoid arthritis involving multiple sites, unspecified whether rheumatoid factor present ([facility]) 1 Occurrences starting 04/03/2024 until 04/03/2025 [employer] Work Phone: Comment on above: 1 Occurrences starting 04/03/2024 until 04/03/2025 Erythrocyte sedimentation rate by Photometric method Erythrocyte Sedimentation Rate (ESR) Lab Routine Rheumatoid arthritis involving multiple sites, unspecified whether rheumatoid factor present ([facility]) 11/19/2024 2:38 PM EDT [email or web address] End: 03-26-2025 Microalbumin - Albumin: Creatinine Urine Ratio Microalbumin - Albumin: Creatinine Urine Ratio Lab Routine Type 1 diabetes mellitus with diabetic polyneuropathy ([facility]) 1 Occurrences starting 03/26/2024 until 03/26/2025 [facility] Comment on above: 1 Occurrences starting 03/26/2024 until 03/26/2025 Pulmonary function report Pulmonary Function Test Imaging Routine SOB (shortness of breath) on exertion Ordered: 01/15/2025 [facility] Work Phone: Comment on above: Ordered: 01/15/2025 End: 11-19-2025 Rheumatoid factor Rheumatoid factor Lab Routine Rheumatoid arthritis involving multiple sites, unspecified whether rheumatoid factor present ([facility]) 1 Occurrences starting 11/19/2024 until 11/19/2025 [facility] Comment on above: 1 Occurrences starting 11/19/2024 until 11/19/2025 Rheumatoid factor [Units/volume] in Serum by Nephelometry Rheumatoid factor Lab Routine Rheumatoid arthritis involving multiple sites, unspecified whether rheumatoid factor present ([facility]) 11/19/2024 2:38 PM EDT [facility] Vitamin D+Metabolite s [Mass/volume] in Serum or Plasma Vitamin D 25 hydroxy Lab Routine Rheumatoid arthritis involving multiple sites, unspecified whether rheumatoid factor present ([facility]) 11/19/2024 2:38 PM EDT [facility] Immunizations Immunization Date Immunization Notes Care Provider Fa [facility] 07-12-2023 influenza, injectabl e, quadrivalent, preservative free Zen Furlong DO Work Phone: [facility] 07-12-2023 influenza virus vacc ine, unspecified formulation Zen Furlong DO Work Phone: [facility] 08-05-2022 influenza, injectabl e, quadrivalent, preservative free Zen Furlong DO Work Phone: [facility] 09-01-2021 Pfizer Purple Cap SARS-CoV-2 Vaccination Zeyad Tate MD Work Phone: [facility] 05-21-2021 influenza, injectabl e, quadrivalent, preservative free Zen Furlong DO Work Phone: [facility] 11-27-2020 Pfizer Purple Cap SARS-CoV-2 Vaccination Zeyad Tate MD Work Phone: [facility] 11-06-2020 COVID-19, mRNA, LNP- S, PF, 30mcg/0.3mL Dose Zen Furlong DO Work Phone: [facility] 11-03-2020 SARS-COV-2 (COVID-19 ) Vaccine, Unspecified Zen Furlong DO Work Phone: [facility] 06-11-2020 pneumococcal conjuga te vaccine, 13 valent Zen Furlong DO Work Phone: [facility] 06-05-2020 influenza virus vacc ine, unspecified formulation Zen Furlong DO Work Phone: [facility] 06-05-2020 pneumococcal vaccine , unspecified formulation Zen Furlong DO Work Phone: [facility] 05-20-2020 influenza, injectabl e, quadrivalent, preservative free Zen Furlong DO Work Phone: [facility] 05-20-2020 pneumococcal polysaccharide vaccine, 23 valent Zen Furlong DO Work Phone: [facility] 09-17-2019 tetanus toxoid, redu timmy diphtheria toxoid, and acellular pertussis vaccine, adsorbed Zen Furlong DO Work Phone: [facility] 06-08-2019 influenza, injectabl e, quadrivalent, preservative free Zen Furlong DO Work Phone: [facility] 06-04-2019 influenza, seasonal, injectable Zeyad Tate MD Work Phone: [facility] 11-28-2012 tetanus toxoid, unspecified formulation Zen Furlong DO Work Phone: [facility] Payers Date Payer Category Payer Medicaid [id number] 2022 Medicaid [id number] 2021 Medicare AETNA MEDICARE A ETNA MEDICARE PLAN (O) [id number] 2021-Present [phone] [address] [place] [address] [id number] 2021 Medicare HMO A[employer] MEDICARE [id number] 1959 Unknown [id number] 2.16.840.1.329115.3.579.2. 647 1959 Unknown [id number] 2.16.840.1.013474.3.579.2. 647 1959 Unknown [id number] 2.16.840.1.723825.3.579.2. 593 1959 Unknown [id number] 2.16.840.1.461609.3.579.2. 593 1959 Unknown [id number] 2.16.840.1.692444.3.579.2. 593 1959 Unknown [id number] 2.16.840.1.670790.3.579.2. 593 1959 Unknown [id number] 2.16.840.1.805274.3.579.2. 593 1959 Unknown [id number] 2.16.840.1.770229.3.579.2. 593 1959 Unknown [id number] 2.16.840.1.920128.3.579.2. 593 1959 Unknown [id number] 2.16.840.1.294406.3.579.2. 593 1959 Unknown [id number] 2.16.840.1.576577.3.579.2. 593 1959 Unknown [id number] 2.16.840.1.655160.3.579.2. 593 1959 Unknown [id number] 2.16.840.1.030413.3.579.2. 593 1959 Unknown [id number] 2.16.840.1.504766.3.579.2. 593 1959 Unknown [id number] 2.16.840.1.229872.3.579.2. 593 1959 Unknown [id number] 2.840.1.730113.3.579.2. 59 1959 Unknown [id number] 2.16.840.1.484000.3.579.2. 593 1959 Unknown [id number] 2.16.840.1.750988.3.579.2. 59 1959 Unknown [id number] 2..840.1.950469.3.579.2. 593 1959 Unknown [id number] 2.16.840.1.753698.3.579.2. 593 1959 Unknown [id number] 2.16.840.1.235916.3.579.2. 593 1959 Unknown [id number] 2.16.840.1.285421.3.579.2. 593 1959 Unknown [id number] 2.16.840.1.017915.3.579.2. 593 1959 Unknown [id number] 2.16.840.1.987847.3.579.2. 593 1959 Unknown [id number] 2.16.840.1.588986.3.579.2. 593 1959 Unknown [id number] 2.16.840.1.869861.3.579.2. 593 1959 Unknown [id number] 2.16.840.1.589419.3.579.2. 593 1959 Unknown [id number] 2.16.840.1.045375.3.579.2. 593 1959 Unknown [id number] 2.16.840.1.783814.3.579.2. 593 1959 Unknown [id number] 2.16.840.1.071745.3.579.2. 593 1959 Unknown [id number] 2.16.840.1.652397.3.579.2. 1285 1959 Unknown [id number] 2.16.840.1.297887.3.579.2. 1285 1959 Unknown [id number] 2.16.840.1.793554.3.579.2. 1285 1959 Unknown [id number] 2.16.840.1.547051.3.579.2. 1285 1959 Unknown [id number] 2.16.840.1.094530.3.579.2. 1285 1959 Unknown [id number] 2.16.840.1.947109.3.579.2. 1285 1959 Unknown [id number] 2.16.840.1.591861.3.579.2. 1285 1959 Unknown [id number] 2.16.840.1.907299.3.579.2. 1285 1959 Unknown [id number] 2.16.840.1.783968.3.579.2. 1285 1959 Unknown [id number] 2.16.840.1.126991.3.579.2. 1285 1959 Unknown [id number] 2.16.840.1.081540.3.579.2. 1285 1959 Unknown [id number] 2.16.840.1.498563.3.579.2. 1285 1959 Unknown [id number] 2.16.840.1.517626.3.579.2. 1285 1959 Unknown [id number] 2.16840.1.736532.3.579.2. 1258 1959 Unknown [id number] 2.16.840.1.729478.3.579.2. 1258 1959 Unknown [id number] 2.840.1.294960.3.579.2. 1258 1959 Unknown [id number] 2.840.1.393074.3.579.2. 1258 1959 Unknown [id number] 2.840.1.594796.3.579.2. 1258 1959 Unknown [id number] 2.840.1.806348.3.579.2. 1258 1959 Unknown [id number] 2.16840.1.367900.3.579.2. 9 1959 Medicare [id number] 1960 Self-pay Private Health Insurance NEB [id number] Unknown [id number] Unknown [id number] 2.840.1.318882.3.579.2. 531 Social History Date Type Detail Facility Start: 07-01-2024 End: 09-12-2024 Sex Assigned At [facility] Start: 07-27-2022 End: 07-01-2024 Tobacco smoking status CAIS Ex-smoker [facility] Start: 09-05-1975 End: 06-06-1997 History of tobacco use Current smoker [facility] Start: 09-05-1975 End: 06-06-1997 History of tobacco use Cigarette Smoker [facility] Start: 07-27-2022 End: 07-01-2024 Tobacco use and exposure Smokeless tobacco non-user [facility] Start: 08-14-2024 End: 03-14-2025 Alcoholic beverage intake Ex-drinker (finding) [facility] Start: 07-01-2024 End: 09-12-2024 History of [...] to any clubs or organizations such as [employer], [employer], [employer] or [employer] groups, or school groups? No [facility] Are you now , , , , never or living with a partner? [facility] How often to you hav e a drink containing alcohol? Never [facility] How hard is it for y ou to pay for the very basics like food, housing, medical care, and heating Not very hard [facility] Do you feel stress - tense, restless, nervous, or anxious, or unable to sleep at night because your mind is troubled all the time - these days [OSQ] To some extent [facility] (I/We) worried wheth er (my/our) food would run out before (I/we) got money to buy more. Sometimes true [facility] The food that (I/we) bought just didn't last, and (I/we) didn't have money to get more. Never true [facility] Do you belong to any clubs or organizations such as [employer] groups, [employer], [employer] or [employer] groups, or school groups? Yes [facility] Start: 1960 Sex Assigned At Female [facility] Start: 09-15-2022 Gender identity Identifies as female gender (finding) [facility] How hard is it for y ou to pay for the very basics like food, housing, medical care, and heating Somewhat hard [facility] Start: 09-18-2019 End: 12-08-2024 Sex Female (finding) [facility] Tobacco smoking stat [facility] Unknown if ever smoked [facility] Work Phone: Medical Equipment Procedure Code [...] tissues and underlying bone was debrided by photo lab specialist. Patient is not currently on any [...] point in ti (more content not included)... [facility] 03-14-2025 History of Present illness Narrative Associated [...] daily. Associated Problem(s): Coronary artery disease involving [place] coronary artery of [place] heart without angina pectoris Follow with cardiology. [...] Addressed This Visit Coronary artery disease involving [place] coronary artery of [place] heart without angina pectoris Follow with cardiology. Rheumatoid arthritis involving multiple sites with positive rheumatoid factor (HCC) Continued pain and deformity. Follow with rheum. Relevant Medications celecoxib (CeleBREX) 200 MG capsule HYDROcodone-acetaminophen ([place]) 5-325 MG tablet Type 1 diabetes mellitus [...] MG DR capsule documented in this encounter [facility] 01-15-2025 History of Present illness Narrative Associated Problem(s): SOB (shortness of breath) on exertion Continued SOB and former smoker. Check PFTs and start albuterol PRN. Associated Problem(s): Hypersomnia Signs of MARA and check sleep study. Associated Problem(s): Coronary artery disease involving [place] coronary artery of [place] heart without angina pectoris (CMS/HCC) Check stress [...] Addressed This Visit Coronary artery disease involving [place] coronary artery of [place] heart without angina pectoris (CMS/HCC) Check stress [...] with myocardial perfusion documented in this encounter [facility] 12-31-2024 History of Present illness [...] the office 7.8. had back surgery in [place] IM: 03/2020 follow up from type 1 [...] saw her today with tele medicine with [employer]. HPI: 09/24 New patient sent from Dr. [...] capsule 1 capsule, 3 times daily HYDROcodone-acetaminophen ([place]) 5-325 MG tablet 1 tablet, Oral, 4 [...] (BMI) 31.0-31.9, adult CAD (coronary artery disease) ([facility]) Current use of insulin ([facility]) Diabetes ([facility]) Dietary counseling and surveillance Encounter for fitting and adjustment of insulin pump Essential (primary) hypertension ([facility]) Fracture of right hand Heart problem High cholesterol ([facility]) History of open heart surgery HTN (hypertension) ([facility] Hypertension ([facility]) 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 ([facility]) Mixed hyperlipidemia ([facility]) Obesity, unspecified PAD (peripheral artery disease) ([facility]) Personal history of other medical treatment Triple Bypass POTS (postural orthostatic tachycardia syndrome) Presence of insulin pump (external) (internal) Rheumatoid arthritis ([facility]) Type 1 diabetes mellitus with other circulatory [...] Type 1 diabetes mellitus with hyperglycemia (HCC) ([facility]) - POCT glucose manually resulted - POCT glycosylated hemoglobin (Hb A1C) docked device Essential (primary) hypertension (CMS/HCC) Vitamin D deficiency, unspecified Dietary counseling and surveillance Mixed hyperlipidemia (CMS/HCC) Presence of insulin pump (external) (internal) [facility] (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 ([facility]) Encounter for fitting or adjustment of insulin [...] visit: No Eye exam current: Yes Sees low vision therapist: Yes documented in this encounter [facility] 12-27-2024 Telephone encounter Note [facility] 12-27-2024 Miscellaneous Notes documented in this encounter [facility] 12-10-2024 History of Present illness [...] study. Associated Problem(s): Coronary artery disease involving [place] coronary artery of [place] heart without angina pectoris ([facility]) Feels worse and follow up with cardiology. [...] Addressed This Visit Coronary artery disease involving [place] coronary artery of [place] heart without angina pectoris (CMS/HCC) Feels worse [...] check sleep study. 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 She has POTS postural [...] Other Other Reaction(s): (more content not included)... [facility] 11-19-2024 History of Present illness Narrative Images from the original note were not included. [address] [address] Date of Service: 11/19/2024 Subjective: Monica Acosta [...] total) before bedtime. 60 tablet 2 lancets ([employer] CulinaryTOUCH DELICA PLUS LANCET) 33 gauge misc TEST [...] multiple sites, unspecified whether rheumatoid factor present ([facility]) - Vitamin D 25 hydroxy; Future - [...] or corrected. Thank you for your understanding. [facility] Rhe[facility] Dr. Collin Saba MD [address] [place] [address], [address] [place] [address] Office: [phone] documented in this encounter [facility] 10-15-2024 Note Orthopedic Surgery Subjective Chief complaint: [...] Medical History: Diagnosis Date Acute coronary syndrome ([facility]) 05/21/2022 Arthritis CKD (chronic kidney disease), stage II Coronary artery disease 12/26/2009 Deep vein thrombosis (DVT) ([facility]) 08/16/2019 Diabetes mellitus ([facility]) Heart disease [id number] Hypertension 01/08/1996 Hypotension POTS (postural orthostatic tachycardia syndrome) Spinal stenosis 2023 Objective General: Body mass index is 29.44 kg/m???. No acute distress, comfortable Respiratory: Unlabored breathing with normal rate, no cough (more content not included)... [facility] 09-19-2024 History of Present illness Narrative Associated [...] vascular. Associated Problem(s): Coronary artery disease involving [place] coronary artery of [place] heart without angina pectoris (CMS/HCC) No pain [...] circulatory complications (CMS/HCC) Follow with vascular. Dyslipidemia ([facility]/HCC) Relevant Orders Lipid panel PAD (peripheral artery disease) (CMS/HCC) Not lightheaded and monitor. Return to vascular. Coronary artery disease involving [place] coronary artery of [place] heart without angina pectoris (CMS/HCC) No pain [...] MG tablet methotrexate 2.5 MG tablet HYDROcodone-acetaminophen ([place]) 5-325 MG tablet Other Relevant Orders Rheumatoid [...] Hepatic function panel documented in this encounter [facility] 08-21-2024 History of Present [...] the office 7.8. had back surgery in [place] IM: 03/2020 follow up from type 1 [...] saw her today with tele medicine with [employer]. HPI: 09/24 New patient sent from Dr. [...] Outpatient Medications Medication Instructions Accu-Chek FastClix Lancets [facility] Does not apply aspirin 81 mg, Daily atenolol (TENORMIN) 50 mg, Daily atorvastatin (LIPITOR) 80 mg, Daily Blood Glucose Monitoring Suppl (Corebook Verio Reflect) w/Device kit Does not apply Cariprazine HCl (Vraylar) 1.5 MG capsule Oral celecoxib (CELEBREX) 200 mg, 2 times daily cholecalciferol (VITAMIN D-3) 1,000 Units, Oral, Daily Continuous Glucose Rn Iv Therapy (FreeStyle Tru 14 Day [place]) device Does not apply Continuous Glucose Sensor (FreeStyle Tru 14 Day Sensor) [facility] Does not apply dilTIAZem CD (CARDIZEM CD) [...] Other, As needed, Use as instructed HYDROcodone-acetaminophen ([place]) 5-325 MG tablet No dose, route, or [...] MG tablet Oral OneTouch Delica Lancets 33G [facility] Does not apply pantoprazole (PROTONIX) 40 mg, [...] (BMI) 31.0-31.9, adult CAD (coronary artery disease) ([facility]) Current use of insulin ([facility]) Diabetes ([facility]) Dietary counseling and surveillance Encounter for fitting and adjustment of insulin pump Essential (primary) hypertension (CMS/HCC) Fracture of right hand Heart problem High cholesterol (CMS/HCC) History of open heart surgery HTN (hypertension) (CMS/HCC) Hypertension (CMS/HCC) [facility] (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 (CMS/HCC) Mixed hyperlipidemia [...] Type 1 diabetes mellitus with hyperglycemia (HCC) ([facility]) - POCT glucose manually resulted - POCT glycosylated hemoglobin (Hb A1C) docked device - Insulin Aspart (NovoLOG) 100 UNIT/ML solution; Inject 50 Units as directed Daily We will continue the same settings. 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 documented in this encounter [facility] 08-13-2024 Note Orthopedic Surgery Subjective Chief complaint: [...] Medical History: Diagnosis Date Acute coronary syndrome ([facility]) 05/21/2022 Arthritis CKD (chronic kidney disease), stage II Coronary artery disease 12/26/2009 Deep vein thrombosis (DVT) ([facility]) 08/16/2019 Diabetes mellitus ([facility]) Heart disease [id number] Hypertension 01/08/1996 Hypotension POTS (postural orthostatic tachycardia [...] demonstrating stable a (more content not included)... [facility] 07-09-2024 Note Orthopedic Surgery Subjective Chief complaint: [...] Medical History: Diagnosis Date Acute coronary syndrome ([facility]) 05/21/2022 Arthritis CKD (chronic kidney disease), stage II Coronary artery disease 12/26/2009 Deep vein thrombosis (DVT) ([facility]) 08/16/2019 Diabetes mellitus ([facility]) Heart disease [id number] Hypertension 01/08/1996 Hypotension POTS (postural orthostatic tachycardia [...] left, closed, init (more content not included)... [facility] 06-11-2024 Note Orthopedic Surgery Subjective Chief complaint: [...] Medical History: Diagnosis Date Acute coronary syndrome ([facility]) 05/21/2022 Arthritis CKD (chronic kidney disease), stage II Coronary artery disease 12/26/2009 Deep vein thrombosis (DVT) ([facility]) 08/16/2019 Diabetes mellitus ([facility]) Heart disease [id number] Hypertension 01/08/1996 Hypotension POTS (postural orthostatic tachycardia [...] using the atte (more content not included)... [facility] 05-14-2024 Note Orthopedic Surgery Subjective Chief complaint: [...] Medical History: Diagnosis Date Acute coronary syndrome ([facility]) 05/21/2022 Arthritis CKD (chronic kidney disease), stage II Coronary artery disease 12/26/2009 Deep vein thrombosis (DVT) ([facility]) 08/16/2019 Diabetes mellitus ([facility]) Heart disease [id number] Hypertension 01/08/1996 Hypotension POTS (postural orthostatic tachycardia [...] to the patient and the family. Assessment/Plan Monica Acosta is a 63 y.o. 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 [facility] 04-30-2024 Miscellaneous Notes Patient is at [facility] she fell and broke both legs and will be transferring to the [facility] for rehab documented in this encounter [facility] 04-30-2024 Telephone encounter Note Patient is at [facility] she fell and broke both legs and will be transferring to the [facility] for rehab [facility] 04-13-2024 History of Present illness Narrative Subjective [...] rheumatoid arthritis pain. She was seeing a spanish teacher in [place] prior to coming to [place] and was referred to Rheumatology here but [...] Exam Vitals reviewed. Exam conducted with a ceramic saw tender present. Constitutional: General: She is not in [...] multiple sites, unspecified whether rheumatoid factor present ([facility]) - [facility] - [place], [place]; Future Refer back to Rheumatology. Importance of modifying disease progression discussed. Stay on Celebrex for now since she has stage 2 chronic kidney disease. 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 She has stage 2 chronic kidney disease with microalbuminuria Diabetic polyneuropathy associated with type 1 diabetes mellitus ([facility]) - gabapentin (NEURONTIN) 100 mg capsule; Take [...] in the morning. [facility] Miscellaneous Notes Patient is very upset and would like to ask you some questions like what stage her kidneys are in. She stated if you can call her when you are done with patients today that would be great. [facility] 03-30-2024 Telephone encounter Note Patient is very upset and would like to ask you some questions like what stage her kidneys are in. She stated if you can call her when you are done with patients today that would be great. [facility] 03-29-2024 Miscellaneous Notes Patient called and she is complaining about her drug screen and norco, she said she takes it every day and now she is out. I dont know what you would like to do I sent in few more and then we need to discuss different treatment options Notified and appointment scheduled documented in this encounter [facility] 03-29-2024 Telephone encounter Note Patient called and she is complaining about her drug screen and norco, she said she takes it every day and now she is out. I dont know what you would like to do [facility] 03-29-2024 Telephone encounter Note I sent in few more and then we need to discuss different treatment options [facility] 03-29-2024 Telephone encounter Note Notified and appointment scheduled [facility] 03-27-2024 History of Present illness Narrative Urine specimen obtained for drug screen documented in this encounter [facility] 03-26-2024 History of Present illness Narrative Images [...] witnessed apnea or headaches. She sees the automotive service advisor as week for type 1 diabetes. The [...] multiple sites, unspecified whether rheumatoid factor present ([facility]) As above. Other fatigue - CBC; Future Check CBC. [place] sleep scale showed normal risk. She was moderate risk with STOPBANG scale. May need further workup Medication monitoring encounter - Drug Screen, Urine; Future Check urine for drugs of abuse. Primary hypertension - Comprehensive metabolic panel; Future Check CMP. Blood pressure at goal. Type 1 diabetes mellitus with diabetic polyneuropathy ([facility]) - Microalbumin - Albumin: Creatinine Urine Ratio; Future Check ACR. Overweight She is overweight. She would benefit from weight loss. Diet exercise and weight loss discussed. Not really able to exercise much due to rheumatoid arthritis documented in this encounter [email or web address] 02-09-2024 History of Present illness Narrative Images from the original note were not included. Subjective Patient ID: Monica Acosta is a 63 y.o. female. She was at [employer] watching [employer] play T-ball and her son put down [...] spasms. Strain of right shoulder, initial encounter Ditql-cr-vtymht exercises given. Risk of frozen shoulder discussed. She defers physical therapy. Medications as above. Overweight She is overweight. It is contributing to diabetes. She would benefit from weight loss Contusion of left knee, initial encounter Resolved documented in this encounter [facility] 02-07-2024 Miscellaneous Notes ----- Message from BECCA Cordero sent at 12/05/2023 1:22 PM EDT ----- Regarding: controlled substance Due late February, early March for RA Sent myceliat msg documented in this encounter [facility] 02-07-2024 Telephone encounter Note ----- Message from BECCA Cordero sent at 12/05/2023 1:22 PM EDT ----- Regarding: controlled substance Due late February, early March for RA [facility] 02-07-2024 Telephone encounter Note Sent mychart msg [facility] 01-27-2024 History of Present illness Narrative The OARRS/MAPPS database was reviewed today and found to be appropriate. No indication of medication diversion, or non compliance. documented in this encounter [facility] 12-05-2023 History of Present illness Narrative .Subjective Patient ID: Monica Acosta is a 62 y.o. female. She has been taking the hydrocodone for rheumatoid arthritis more so than her low back pain although her low back still gives her pain Her rheumatoid arthritis makes her ache in multiple joints She does not see a spanish teacher for this She has been taking it [...] multiple sites, unspecified whether rheumatoid factor present ([facility]) - HYDROcodone-acetaminophen ([place]) 7.5-325 mg per tablet; Take 1 tablet by mouth 2 (two) times a day as needed for pain. Status post partial amputation of left foot ([facility]) Diabetic polyneuropathy associated with type 2 diabetes mellitus ([facility]) - TSH; Future Severe depression ([facility]) PAD (peripheral artery disease) ([facility]) Compression fracture of L1 vertebra with routine [...] months for her controlled substance review The OARRS/BiztagS database was reviewed today and found to be appropriate. No indication of medication diversion, or non compliance. BECCA Cordero 12/05/23 1329 documented in this encounter [email or web address] 11-29-2023 History of Present illness Narrative The OARRS/MAPPS database was reviewed today and found to be appropriate. No indication of medication diversion, or non compliance. BECCA Cordero 11/29/23 0712 documented in this encounter [facility] 11-15-2023 History of Present illness Narrative The OARRS/MAPPS database was reviewed today and found to be appropriate. No indication of medication diversion, or non compliance. Demetra Macario [place], PI/SENIOR RESEARCH ASSOCIATE-PROP DRAWER 11/15/23 0759 documented in this encounter [facility] 10-16-2023 Miscellaneous Notes She has requesting a refill of her controlled substance but she is overdue for an appointment. She needs to set 1 up as soon as possible documented in this encounter [facility] 10-16-2023 Telephone encounter Note She has requesting a refill of her controlled substance but she is overdue for an appointment. She needs to set 1 up as soon as possible [facility] 10-04-2023 Miscellaneous Notes Rx sent in. She is due for a controlled substance recheck next week documented in this encounter [facility] 10-04-2023 Telephone encounter Note Rx sent in. She is due for a controlled substance recheck next week [facility] 07-27-2021 Evaluation note Encounter Date Diagnosis Assessment [...] Patient care instructions given in writting by [facility] document [employer] Other Evaluation note* Diagnosis Type 1 diabetes mellitus with hyperglycemia (HCC) ([facility])- Primary Essential (primary) hypertension ([facility]) Unspecified essential hypertension Vitamin D deficiency, unspecified Dietary counseling and surveillance Mixed hyperlipidemia ([facility]) Mixed hyperlipidemia Presence of insulin pump (external) (internal) [facility] (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 ([facility]) Encounter for fitting or adjustment of insulin pump Fitting and adjustment of insulin pump documented [facility] this encounter [facility] Diagnosis Rheumatoid arthritis involving multiple sites with positive rheumatoid factor ([facility])- Primary Type I diabetes mellitus with polyneuropathy ([facility]) Coronary artery disease involving [place] coronary artery of [place] heart without angina pectoris (CMS/[facility]) PAD (peripheral artery disease) ([facility]) Unspecified peripheral vascular disease POTS (postural orthostatic tachycardia syndrome) Unspecified tachycardia Type 1 diabetes mellitus with other circulatory complications ([facility]) Type 1 diabetes mellitus with hyperglycemia (HCC) ([facility]) Encounter for long-term (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 medications Encounter for long-term (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 other medications Dyslipidemia (CMS/[facility]) Other 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 hyperlipidemia [facility] (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 ([facility]) [facility] Diagnosis Compression fracture of L1 vertebra with routine healing, subsequent encounter [facility] Diagnosis Rheumatoid arthritis involving multiple sites with positive rheumatoid factor ([facility])- Primary Type I diabetes mellitus with polyneuropathy ([facility]) Coronary artery disease involving [place] coronary artery of [place] heart without angina pectoris ([facility]) PAD (peripheral artery disease) ([facility]) Unspecified peripheral vascular disease POTS (postural orthostatic tachycardia syndrome) Unspecified tachycardia Type 1 diabetes mellitus with other circulatory complications ([facility]) Type 1 diabetes mellitus with hyperglycemia ([facility]) ([facility]) Encounter for long-term (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 medications Encounter for long-term (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 other medications Dyslipidemia ([facility]) Other 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 hyperlipidemia 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 ([facility]) Rheumatoid arthritis involving multiple sites with positive rheumatoid factor ([facility]) documented in this encounter [facility]* Diagnosis Concussion without loss of consciousness, initial encounter- Primary Strain of neck muscle, initial encounter Strain of right shoulder, initial encounter Overweight Contusion of left knee, initial encounter [facility] Diagnosis Rheumatoid arthritis involving multiple sites, unspecified whether rheumatoid factor present ([facility]) [facility] [...] multiple sites, unspecified whether rheumatoid factor present ([facility]) Other fatigue Medication monitoring encounter Encounter for therapeutic drug monitoring Primary hypertension Unspecified essential hypertension Type 1 diabetes mellitus with diabetic polyneuropathy ([facility]) Overweight [facility] Diagnosis Rheumatoid arthritis involving multiple sites, unspecified whether rheumatoid factor present ([facility]) [facility] Diagnosis Medication monitoring encounter- Primary Encounter for therapeutic drug monitoring Compression fracture of L1 vertebra, sequela Rheumatoid arthritis involving multiple sites, unspecified whether rheumatoid factor present ([facility]) [facility] Diagnosis Rheumatoid arthritis involving multiple sites, unspecified whether rheumatoid factor present ([facility])- Primary Status post partial amputation of left foot ([facility]) Diabetic polyneuropathy associated with type 2 diabetes mellitus ([facility]) Severe depression ([facility]) Depressive disorder, not elsewhere classified PAD (peripheral artery disease) ([facility]) Unspecified peripheral vascular disease Compression fracture of L1 vertebra with routine healing, subsequent encounter Mixed hyperlipidemia documented in this [facility]* Diagnosis Stage 2 chronic kidney disease due to type 1 diabetes mellitus ([facility])- Primary Rheumatoid arthritis involving multiple sites, unspecified whether rheumatoid factor present ([facility]) 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 ([facility]) Diabetic polyneuropathy associated with type 1 diabetes mellitus ([facility]) Hyperkalemia Hyperpotassemia Compression fracture of L1 vertebra, sequela documented [facility] Diagnosis Rheumatoid arthritis involving multiple sites with positive rheumatoid factor ([facility])- Primary Type I diabetes mellitus with polyneuropathy ([facility]) Coronary artery disease involving [place] coronary artery of [place] heart without angina pectoris ([facility]) PAD (peripheral artery disease) ([facility]) Unspecified peripheral vascular disease POTS (postural orthostatic tachycardia syndrome) Unspecified tachycardia Type 1 diabetes mellitus with other circulatory complications ([facility]) Type 1 diabetes mellitus with hyperglycemia ([facility]) ([facility]) Encounter for long-term (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 medications Encounter for long-term (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 other medications Dyslipidemia ([facility]) Other 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 hyperlipidemia 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 ([facility]) Rheumatoid arthritis involving multiple sites with positive rheumatoid factor ([facility] [facility] documented in this encounter [facility] HealthcareEvaluation note* Diagnosis Rheumatoid arthritis involving multiple sites, unspecified whether rheumatoid factor present ([facility])- Primary Long-term use of [place] Long-term use of leflunomide therapy [facility] Diagnosis Rheumatoid arthritis involving multiple sites with positive rheumatoid factor ([facility]/HCC)- Primary Type I diabetes mellitus with polyneuropathy ([facility]) Coronary artery disease involving [place] coronary artery of [place] heart without angina pectoris ([facility]) PAD (peripheral artery disease) (CMS/HCC) Unspecified peripheral vascular disease POTS (postural orthostatic tachycardia syndrome) Unspecified tachycardia Type 1 diabetes mellitus with other circulatory complications Type 1 diabetes mellitus with hyperglycemia (HCC) ([facility]/HCC) Encounter for long-term (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 medications Encounter for long-term (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 other medications Dyslipidemia (CMS/HCC) Other 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 hyperlipidemia [facility] (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 (CMS/HCC) Rheumatoid arthritis involving multiple sites with positive rheumatoid factor (CMS/HCC) documented in this encounter [facility] HealthcareEvaluation noteNo assessment information [facility] Work Phone: Evaluation note* Diagnosis Rheumatoid arthritis involving multiple sites with positive rheumatoid factor (CMS/HCC)- Primary Type I diabetes mellitus with polyneuropathy (CMS/HCC) Coronary artery disease involving [place] coronary artery of [place] heart without angina pectoris (CMS/HCC) PAD (peripheral artery disease) ([facility]/HCC) Unspecified peripheral vascular disease POTS (postural orthostatic tachycardia syndrome) Unspecified tachycardia Type 1 diabetes mellitus with other circulatory complications Type 1 diabetes mellitus with hyperglycemia (HCC) ([facility]) Encounter for long-term (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 medications Encounter for long-term (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 other medications Dyslipidemia (CMS/HCC) Other 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 hyperlipidemia 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) Type I diabetes mellitus with polyneuropathy (CMS/HCC)- Primary Type 1 diabetes mellitus with hyperglycemia (HCC) ([facility]/HCC) POTS (postural orthostatic tachycardia syndrome) Unspecified tachycardia Rheumatoid arthritis involving multiple sites with positive rheumatoid factor (CMS/HCC) Coronary artery disease involving [place] coronary artery of [place] heart without angina pectoris ([facility]/HCC) Hypersomnia Hypersomnia, unspecified documented in this encounter [facility] HealthcareEvaluation note* Diagnosis Rheumatoid arthritis involving multiple sites with positive rheumatoid factor (CMS/HCC)- Primary Type I diabetes mellitus with polyneuropathy (CMS/HCC) Coronary artery disease involving [place] coronary artery of [place] heart without angina pectoris (CMS/HCC) PAD (peripheral artery disease) (CMS/HCC) Unspecified peripheral vascular disease POTS (postural orthostatic tachycardia syndrome) Unspecified tachycardia Type 1 diabetes mellitus with other circulatory complications Type 1 diabetes mellitus with hyperglycemia (HCC) ([facility]) Encounter for long-term (current) use of medications Encounter for long-term (current) use of other medications Dyslipidemia (CMS/HCC) Other 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 hyperlipidemia [facility] (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 ([facility]) Type I diabetes mellitus with polyneuropathy ([facility]/HCC)- Primary Type 1 diabetes mellitus with hyperglycemia (HCC) ([facility]) POTS (postural orthostatic tachycardia syndrome) Unspecified tachycardia Rheumatoid arthritis involving multiple sites with positive rheumatoid factor ([facility]) Coronary artery disease involving [place] coronary artery of [place] heart without angina pectoris ([facility]) Hypersomnia Hypersomnia, unspecified Rheumatoid arthritis involving multiple sites with positive rheumatoid factor ([facility]) documented in this encounter [facility] HealthcareEvaluation note* Diagnosis Rheumatoid arthritis involving multiple sites with positive rheumatoid factor ([facility])- Primary Type I diabetes mellitus with polyneuropathy ([facility]) Coronary artery disease involving [place] coronary artery of [place] heart without angina pectoris ([facility]) PAD (peripheral artery disease) ([facility]) Unspecified peripheral vascular disease POTS (postural orthostatic tachycardia syndrome) Unspecified tachycardia Type 1 diabetes mellitus with other circulatory complications Type 1 diabetes mellitus with hyperglycemia (HCC) ([facility]) Encounter for long-term (current) use of medications Encounter for long-term (current) use of other medications Dyslipidemia ([facility]) Other 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 hyperlipidemia 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 ([facility]) Type I diabetes mellitus with polyneuropathy ([facility]/HCC)- Primary Type 1 diabetes mellitus with hyperglycemia (HCC) ([facility]) POTS (postural orthostatic tachycardia syndrome) Unspecified tachycardia Rheumatoid arthritis involving multiple sites with positive rheumatoid factor ([facility]) Coronary artery disease involving [place] coronary artery of [place] heart without angina pectoris ([facility]) Hypersomnia Hypersomnia, unspecified Type 1 diabetes mellitus with hyperglycemia (HCC) ([facility])- Primary Essential (primary) hypertension ([facility]) Unspecified essential hypertension Vitamin D deficiency, unspecified Dietary counseling and surveillance Mixed hyperlipidemia ([facility]) Mixed hyperlipidemia Presence of insulin pump (external) (internal) [facility] (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 ([facility]) Encounter for fitting or adjustment of insulin pump Fitting and adjustment of insulin pump documented in this encounter [facility] HealthcareEvaluation note* Diagnosis Rheumatoid arthritis involving multiple sites with positive rheumatoid factor ([facility])- Primary Type I diabetes mellitus with polyneuropathy ([facility]/HCC) Coronary artery disease involving [place] coronary artery of [place] heart without angina pectoris ([facility]) PAD (peripheral artery disease) ([facility]) Unspecified peripheral vascular disease POTS (postural orthostatic tachycardia syndrome) Unspecified tachycardia Type 1 diabetes mellitus with other circulatory complications Type 1 diabetes mellitus with hyperglycemia (HCC) ([facility]) Encounter for long-term (current) use of medications Encounter for long-term (current) use of other medications Dyslipidemia ([facility]/HCC) Other 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 hyperlipidemia [facility] (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 ([facility] Type I diabetes mellitus with polyneuropathy ([facility])- Primary Type 1 diabetes mellitus with hyperglycemia (HCC) ([facility]) POTS (postural orthostatic tachycardia syndrome) Unspecified tachycardia Rheumatoid arthritis involving multiple sites with positive rheumatoid factor ([facility]) Coronary artery disease involving [place] coronary artery of [place] heart without angina pectoris ([facility]) Hypersomnia Hypersomnia, unspecified Chest pain at rest- Primary Unspecified chest pain SOB (shortness of breath) on exertion Shortness of breath Coronary artery disease involving [place] coronary artery of [place] heart without angina pectoris ([facility]) Hypersomnia Hypersomnia, unspecified documented in this encounter [facility] HealthcareEvaluation note* Diagnosis Rheumatoid arthritis involving multiple sites with positive rheumatoid factor ([facility])- Primary Type I diabetes mellitus with polyneuropathy ([facility]) Coronary artery disease involving [place] coronary artery of [place] heart without angina pectoris ([facility]) PAD (peripheral artery disease) ([facility]) Unspecified peripheral vascular disease POTS (postural orthostatic tachycardia syndrome) Unspecified tachycardia Type 1 diabetes mellitus with other circulatory complications Type 1 diabetes mellitus with hyperglycemia (HCC) ([facility]) Encounter for long-term (current) use of medications Encounter for long-term (current) use of other medications Dyslipidemia ([facility]/HCC) Other 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 hyperlipidemia [facility] (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 ([facility]) Type I diabetes mellitus with polyneuropathy ([facility]/HCC)- Primary Type 1 diabetes mellitus with hyperglycemia (HCC) ([facility]) POTS (postural orthostatic tachycardia syndrome) Unspecified tachycardia Rheumatoid arthritis involving multiple sites with positive rheumatoid factor ([facility]) Coronary artery disease involving [place] coronary artery of [place] heart without angina pectoris ([facility]) Hypersomnia Hypersomnia, unspecified Chest pain at rest- Primary Unspecified chest pain SOB (shortness of breath) on exertion Shortness of breath Coronary artery disease involving [place] coronary artery of [place] heart without angina pectoris (CMS/HCC) Hypersomnia Hypersomnia, unspecified POTS (postural orthostatic tachycardia syndrome) Unspecified tachycardia POTS (postural orthostatic tachycardia syndrome)- Primary Unspecified tachycardia Rheumatoid arthritis involving multiple sites with positive rheumatoid factor (CMS/HCC) documented in this encounter [facility] HealthcareEvaluation note* Diagnosis Rheumatoid arthritis involving multiple sites with positive rheumatoid factor (HCC)- Primary Type I diabetes mellitus with polyneuropathy (HCC) Coronary artery disease involving [place] coronary artery of [place] heart without angina pectoris PAD (peripheral artery disease) Unspecified peripheral vascular disease POTS (postural orthostatic tachycardia syndrome) Unspecified tachycardia Type 1 diabetes mellitus with other circulatory complications (HCC) Type 1 diabetes mellitus with hyperglycemia (HCC) Encounter for long-term (current) use of medications Encounter for long-term (current) use of other medications Dyslipidemia Other 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 hyperlipidemia 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 (HCC) Type I diabetes mellitus with polyneuropathy (HCC)- Primary Type 1 diabetes mellitus with hyperglycemia (HCC) POTS (postural orthostatic tachycardia syndrome) Unspecified tachycardia Rheumatoid arthritis involving multiple sites with positive rheumatoid factor (HCC) Coronary artery disease involving [place] coronary artery of [place] heart without angina pectoris Hypersomnia Hypersomnia, unspecified Chest pain at rest- Primary Unspecified chest pain SOB (shortness of breath) on exertion Shortness of breath Coronary artery disease involving [place] coronary artery of [place] heart without angina pectoris Hypersomnia Hypersomnia, unspecified POTS (postural orthostatic tachycardia syndrome) Unspecified tachycardia Coronary artery disease involving [place] coronary artery of [place] heart without angina pectoris- Primary Rheumatoid arthritis involving multiple sites with positive rheumatoid factor (HCC) documented in this encounter [facility] HealthcareEvaluation note* Diagnosis Rheumatoid arthritis involving multiple sites with positive rheumatoid factor (HCC)- Primary Type I diabetes mellitus with polyneuropathy (HCC) Coronary artery disease involving [place] coronary artery of [place] heart without angina pectoris PAD (peripheral artery disease) Unspecified peripheral vascular disease POTS (postural orthostatic tachycardia syndrome) Unspecified tachycardia Type 1 diabetes mellitus with other circulatory complications (HCC) Type 1 diabetes mellitus with hyperglycemia (HCC) Encounter for long-term (current) use of medications Encounter for long-term (current) use of other medications Dyslipidemia Other 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 hyperlipidemia 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 (HCC) Type I diabetes mellitus with polyneuropathy (HCC)- Primary Type 1 diabetes mellitus with hyperglycemia (HCC) POTS (postural orthostatic tachycardia syndrome) Unspecified tachycardia Rheumatoid arthritis involving multiple sites with positive rheumatoid factor (HCC) Coronary artery disease involving [place] coronary artery of [place] heart without angina pectoris Hypersomnia Hypersomnia, unspecified Chest pain at rest- Primary Unspecified chest pain SOB (shortness of breath) on exertion Shortness of breath Coronary artery disease involving [place] coronary artery of [place] heart without angina pectoris Hypersomnia Hypersomnia, unspecified POTS (postural orthostatic tachycardia syndrome) Unspecified tachycardia MDD (major depressive disorder), recurrent episode, moderate (HCC)- Primary Type I diabetes mellitus with polyneuropathy (HCC) Rheumatoid arthritis involving multiple sites with positive rheumatoid factor (HCC) Type 1 diabetes mellitus with hyperglycemia (HCC) POTS (postural orthostatic tachycardia syndrome) Unspecified tachycardia Coronary artery disease involving [place] coronary artery of [place] heart without angina pectoris documented in this encounter [facility] Narrative - Reported* Type Description Date Medical History diabetes mallitus Medical History chronic depression Medical History high blood pressure Medical History high cholesterol Medical History rheumatoid arthritis Surgical History open heart surgery [employer] Other InstructionsNot on filedocumented in this encounter [facility] filedocument[facility] in [facility]Not on filedocumented in this encounter [facility]* Attachments The following attachments cannot be sent through Care Everywhere. * Frozen Shoulder Exercises (Guinean) documented in this encounterProMedica Health SystemInstructionsNot on [...] multiple sites, unspecified whether rheumatoid factor present ([facility]) Zen Flores, DO [address] [facility] [place] [address] Collin Saba MD [address] [address] Referral ID Status Reason Start Date Expiration Date Visits Requested Visits Authorized [id number] Authorized Specialty Services Required 04/13/2024 04/13/2025 1 1 [facility] (narrative)No reason for referral information availableL[facility] Work Phone: Reason for visit Narrative* Consultation (Routine) - Pending Review Specialty Diagnoses / Procedures Referred By Narendra t Referred To Contact Rheumatology Diagnoses Rheumatoid arthritis involving multiple sites with positive rheumatoid factor ([facility]) Procedures NC OFFICE OUTPATIENT VISIT 60-74 MINS HIGH MDM [id number] (SNOMED CT) - AMB REFERRAL TO RHEUMATOLOGY Rudolph Hurt MD [address] [place] [address] Phone: tel: fax: Collin aSba MD [address] [address] Phone: tel: fax: Referral ID Status Reason Start Date Expiration Date V isits Requested Visits Authorized [id number] Pending Review 09/19/2024 03/18/2025 [address] [facility] [employer] [facility] Summary Purpose Family History No Family History Records FoundNo Family History Records FoundNo Family History Records FoundNo Family History Records FoundNo Family History Records FoundNo Family History Records FoundNo Family History Records FoundNo Family History Records Found Advance Directives No Advanced Directives Records Found Advance Directive Response Recorded Date/ Time Advance Directives No March 03 2:25pm Hospital Course Note MR#: [id number] [facility] Pt. Name: Monica Acosta Admitted: 06/30/2020 Discharged: [...] regimen and follow up with the primary automotive service advisor. HOSPITAL COURSE: The patient is a 59-year-old [...] and content) DATE CREATED AUTHOR 10/15/2020 [facility] DATE CREATED AUTHOR AUTHOR'S ORGANIZ ATION 09/23/2021 [facility] DATE CREATED AUTHOR AUTHOR'S ORGANIZ ATION 10/19/2022 [facility] DATE CREATED AUTHOR AUTHOR'S ORGANIZ ATION 04/16/2024 [facility] DATE CREATED AUTHOR AUTHOR'S ORGANIZ ATION 11/21/2024 [facility] DATE CREATED AUTHOR AUTHOR'S ORGANIZ ATION 12/14/2024 [facility] DATE CREATED AUTHOR AUTHOR'S ORGANIZ ATION 03/18/2025 [facility] DATE CREATED AUTHOR AUTHOR'S ORGANIZ ATION 05/13/2025 [facility] REASON FOR VISIT (unrecogniz ed section [...] Care Teams (unrecognized sec tion and content) Sewer Head Relationship Specialty Start Date End Date Zen Flores MD [address] [place] [address] PCP - General Family Medicine 08/14/24 Sewer Head Relationship Specialty Start Date End Date Zen Flores MD [address] [place] [address] PCP - General Family Medicine 08/14/24 Sewer Head Relationship Specialty Start Date End Date Rudolph Hurt MD [address] [place] [address] PCP - General Family Medicine 09/19/24 Sewer Head Relationship Specialty Start Date End Date Zen Flores MD [address] [place] [address] PCP - General Family Medicine 08/14/24 Sewer Head Relationship Specialty Start Date End Date Zen Flores DO [address] [place] [address] PCP - General Family Medicine 09/18/19 Sewer Head Relationship Specialty Start Date End Date Zen Flores DO [address] [place] [address] PCP - General Family Medicine 09/18/19 Sewer Head Relationship Specialty Start Date End Date Rudolph Hurt MD [address] [place] [address] PCP - General Family Medicine 09/19/24 Sewer Head Relationship Specialty Start Date End Date SandraZen DO [address] [place] [address] PCP - General Family Medicine 09/18/19 Sewer Head Relationship Specialty Start Date End Date SandraZen [address], [place] [address] PCP - General Family Medicine 09/18/19 Sewer Head Relationship Specialty Start Date End Date MichiZen burns DO [address], [place] [address] PCP - General Family Medicine 09/18/19 Sewer Head Relationship Specialty Start Date End Date SandraZen DO [address] [place] [address] PCP - General Family Medicine 09/18/19 Sewer Head Relationship Specialty Start Date End Date SandraZen [address] [place] [address] PCP - General Family Medicine 09/18/19 Sewer Head Relationship Specialty Start Date End Date Zen Flores DO [address], [place] [address] PCP - General Family Medicine 09/18/19 Sewer Head Relationship Specialty Start Date End Date ChantaljazzyZen burns DO [address], [place] [address] PCP - General Family Medicine 09/18/19 Sewer Head Relationship Specialty Start Date End Date Rudolph Hurt MD [address] [place] [id number] PCP - General Family Medicine 09/19/24 Sewer Head Relationship Specialty Start Date End Date Rudolph Hurt MD [address] [place] [address] PCP - General Family Medicine 09/21/24 Sewer Head Relationship Specialty Start Date End Date Rudolph Hurt MD [address] [place] [address] PCP - General Family Medicine 09/19/24 Sewer Head Relationship Specialty Start Date End Date Rudolph Hurt MD [address] [place] [address] PCP - General Family Medicine 09/19/24 Team Status: Active Member Role Status Dates Zen Flores DO Primary Care Provider Active Team Status: Inactive Member Role Status Dates Zen Flores DO Primary Care Provider Active Start: December 06, 2024 End: December 06, 2024 Radha Brannon DPM MS Attending Provider Active Start: December 06, 2024 End: December 06, 2024 Sewer Head Relationship Specialty Start Date End Date Rudolph Hurt MD [address] [place] [id number] PCP - General Family Medicine 09/19/24 Sewer Head Relationship Specialty Start Date End Date Rudolph Hurt MD [address] [place] [address] PCP - General Family Medicine 09/19/24 Sewer Head Relationship Specialty Start Date End Date Rudolph Hurt MD [address] [place] [address] PCP - General Family Medicine 09/19/24 Sewer Head Relationship Specialty Start Date End Date Rudolph Hurt MD [address] [place] [address] PCP - General Family Medicine 09/19/24 Sewer Head Relationship Specialty Start Date End Date Rudolph Hurt MD [address] [place] [address] PCP - General Family Medicine 09/19/24 Sewer Head Relationship Specialty Start Date End Date Rudolph Hurt MD [address] [place] [address] PCP - General Family Medicine 09/19/24 Sewer Head Relationship Specialty Start Date End Date Rudolph Hurt MD [address] [place] [address] PCP - General Family Medicine 09/19/24 Sewer Head Relationship Specialty Start Date End Date Rudolph Hurt MD [address] [place] [address] PCP - General Family Medicine 09/19/24 Team Status: Active Member Role Status Dates Rudolph Hurt MD Primary Care Provider Active Team Status: Inactive Member Role Status Dates Silvia Blank APRN Attending Provider Active Start: March 11, 2025 End: March 11, 2025 Rudolph Hurt MD Primary Care Provider Active S tart: March 11, 2025 End: March 11, 2025 Sewer Head Relationship Specialty Start Date End Date Rudolph Hurt MD [address] [place] [address] PCP - General Family Medicine 09/19/24 Sewer Head Relationship Specialty Start Date End Date Rudolph Hurt MD [address] [place] [address] PCP - General Family Medicine 09/19/24 [...] BE BASED ON THE PRIMARY CLINICAL RECORDS. [facility] [employer] [facility]. provides no warranty or guarantee of the accuracy or completeness of information in this document.
== END 2025-06-19 09:10 | disposition home or self-care (01) ==
LOC: WC 09:09
PROVIDERS: PCP Family Medicine; Visit Provider Podiatrist Foot & Ankle Surgery
DX: L97.814 Non-pressure chronic ulcer of other part of right lower leg with necrosis of bone (principal)
CPT/HCPCS: G0463

== ENCOUNTER 2025-07-01 13:07 | Outpatient (OUT) | payer MEDICARE, MEDICAID, SELFPAY ==
--- OUTSIDE RECORDS SUMMARY | 2025-06-24 06:03 | XMS_ITS | Continuity of Care Document ---
Author Organization [facility] Address [address] [place] [address] Phone Care Team Providers Care Crna Name Role Phone Rudolph Peter MD Primary Care Provider Mark Garcia DO Attending Provider Care Teams Patient Care Team Team Status: Active Member Role/Relationship Status Dates Rudolph Peter MD Primary Care Provider Active Patient Care Team Team Status: Inactive Member Role/Relationship Status Dates Rudolph Peter MD Primary Care Provider Active S tart: June 24, 2025 End: June 24, 2025Justkeyona Garcia DOAttending ProviderActiveStart: June 24, 2025 End: June 24, 2025 Chief Complaint and Reason for Visit Chief Complaint Admit Date [facility] CONSULT WOUND CARE RT LE PAIN/ULCER WITH June 24, 2025 9:01am Reason for Visit Admit Date Chronic osteomyelitis of right lower leg June 24, 2025 9:01am Right tibial fracture June 24, 2025 9:01am Allergies, Adverse Reactions, Alerts Allergen Type Severity Reaction Last Updated Verified Status bee honey Allergy Unknown Hives March 11, 2025 12:59pm No Active Social History Smoking Status Unknown if ever smoked Observation Status Observation Response Date of Response Legal Sex Female (finding) Sex [facility] 1960 Problems Active Problems Problem Diagnosis/Recorded Date Onset Date Stat us Chronic osteomyelitis of rig ht lower leg June 24, 2025 9:55am Unknown Active Right tibial fracture June 24, 2025 9:56am Unknow n Active Rheumatoid arthritis involvi ng multiple sites with positive rheumatoid factor May 16, 2025 12:38pm Unknown Active Medications Medication Status Dose Units Route Directions Qty Days Refills S tart Date Stop Date End Date Reason(s) Instructions Adherence Hydrocodone-Acetaminophen 5-325 mg tablet Discontinued 1 TAB PO Every 6 hours as needed for pain 60 15 0 May 16, 2025 May 16, 2025 1:16pmRheumatoid arthritis involving multiple sites with positive rheumatoid factorHydrocodone-Acetaminophen 5-325 mg kloatiNajhsz0OHPBH Every 6 hours as needed for rwqb39207Fslmtlmkj 11th, 2025Rheumatoid arthritis involving multiple sites with positive rheumatoid factorComplies with drug therapyDuloxetine 60 mg capsule,delayed release(DR/EC)Rzqfpr43SWBIAmfcy413 June 14, 2025 12:00amComplies with drug therapyCelecoxib 200 mg capsule ActiveMGPOJuly 2024 12:00amComplies with drug therapyAtorvastatin 80 mg tabletActiveMGPOJuly 2024 12:00amComplies with drug therapyInsulin Aspart U-100 (Novolog U-100 Insulin Aspart) 100 unit/mL solutionActiveSUBCUTJuly 2024 12:00amComplies with drug therapyGabapentin 100 mg capsuleDiscontinuedMGPO March 11, 2025 12:00amJuly 2024 12:59pmAtenolol 50 mg tabletActiveMGPOJuly 2024 12:00amComplies with drug therapyDuloxetine 30 mg capsule,delayed release(DR/EC)ActiveMGPOJuly 2024 12:00amComplies with drug therapy Finerenone (Kerendia) 10 mg tabletDiscontinuedMGPOJuly 2024 12:00amJuly 2024 12:59pmCarbamide Peroxide (Debrox) 6.5 % zrgtrDitnjs1QJHTUGYI-DMFV Rwnak8107Bnwc 7th, 2025 12:00amComplies with drug therapy Vital Signs Vital Reading Result Reference Range Collection Date/Time Height 67 [in_i] June 24, 2025 9:91veFwixvj13.00 kgOct2024 9:28amBMI (Body Mass Index)28.6 kg/s5ZqjctbuJune 24, 2025 9:28am Advance Directives Advance Directive Response Recorded Date/ Time Advance Directives No March 03 2:25pm Insurance Providers Guarantor Deirdre Kan Address [address] [facility] [address] Info.Home Phone: Coverage Status Update:March 11, 2025 Payer Group Member ID Coverage Type Subscriber Relationship to Subscriber Effective Date Expiration Date Medicaid [id number] [place] Id: [id number] [address] [facility] [address] Home Phone: Email: Shantel [facility] Id: [id number] [place] Id: [id number] [address] [facility] [address] Home Phone: Email: Gen Meade Encounter Location(s) Arrival/Admit Date Discharge/Departure Date Discharge/Departure Disposition Provider(s) Departed Physician/ Provider Office Visit -[facility] [place] June 24, 2025 9:01am June 24, 2025 10:02am Discharged to home care or self care (routine discharge) Mark Garcia DO Recent Diagnosis Onset Date Admit Date Chronic osteomyelitis of right lower leg Unknown June 24, 2025 9:01am Right tibial fracture Unknown June 242024 9:01am Assessments Diagnosis Onset Date Resolution Status Admit Date Chronic osteomyelitis of right lower leg acuteOct2024 9:01amRight tibial fractureacuteOct2024 9:01am Plan of Treatment Author Macarena SilvaFulton County Health CenterAuthoredOct2024 9:58amCT scan and infection labs Future Tests Future scheduled test information is unavailable Pending Tests Test Name Ordered Date Scheduled Date CT lower leg RT wo con June 24, 2025 9:58am Future Visits Future appointment information is unavailable Future Procedures Procedure Name Ordered Date Scheduled Date Complete Blood Count Auto Diff June 24 9:58am C-Reactive ProteinOct2024 9:58amErythrocyte Sedimentation RateOctober 2024 9:58amVitamin D 25 Hydroxy TotalOctober 2024 10:00am Future Medications Future medication information is unavailable Patient Instructions Patient instructions are unavailable
--- OUTSIDE RECORDS SUMMARY | 2025-07-01 13:11 | XMS_ITS | Clinical Summary ---
Author Organization [facility] Address [address] [place] [address] Care Team Providers Care District Service Manager Name Role Phone Rudolph Peter MD Primary Care Provider [phone] Allergies Active AllergyReactionsCriticalityNoted DateCommentsBee Venom06/03/2021 Other reaction(s): TROUBLE BREATHING Uhmlicvmnmccl37/27/4540KeerwgjdvuEyoly07/27/2020 Other Reaction(s): LOW BLOOD PRESSURE Wound Dressing FjzjnmxnQnlb36/29/2021 BLISTERS (IF ON FOR TOO LONG) Medications MedicationSigDispense QuantityRefillsLast FilledStart DateEnd DateStatus aspirin 81 MG EC tablet Take 81 mg by mouth DailyActive nitroglycerin (Nitrostat) 0.[address] 0.4 mg under the tongue every 5 (five) minutes if needed for chest pain Active Insulin Aspart (NovoLOG) 100 UNIT/ML solution Indications:Type 1 diabetes mellitus with hyperglycemia (HCC)Inject 50 Units as directed Daily 60 mL ctive insulin aspart (NovoLOG, Fiasp) 100 UNIT/ML patient supplied pump Inject under the skin continuouslyActive levothyroxine (Synthroid, Levoxyl) 75 MCG tablet Indications:DyslipidemiaTake 1 tablet (75 mcg) by mouth in the morning. Take before meals. 90 tablet 5Active methocarbamol (Robaxin) 500 MG tablet Indications:Rheumatoid arthritis involving multiple sites with positive rheumatoid factor (HCC)Take 1 tablet (500 mg) by mouth every 8 (eight) hours if needed for muscle spasms 90 tablet 5Active DULoxetine (Cymbalta) [address] capsule Indications:Generalized anxiety disorderTake 1 capsule (60 mg) by mouth Daily Do not crush or chew. 30 capsule [id number] leflunomide (Arava) 10 MG tablet Take 10 mg by mouth DailyActive albuterol HFA 90 mcg/act inhaler Indications:SOB (shortness of breath) on exertionInhale 2 puffs every 4 (four) hours if needed for shortness of breath or wheezing 18 g 5Active atenolol (Tenormin) 50 MG tablet Indications:POTS (postural orthostatic tachycardia syndrome)TAKE 1 TABLET BY MOUTH IN THE MORNING 90 tablet 5Active atorvastatin (Lipitor) 80 MG tablet Indications:Coronary artery disease involving [place] coronary artery of [place] heart without angina pectorisTake 1 tablet (80 mg) by mouth Daily 90 tablet 5Active DULoxetine (Cymbalta) [address] capsule Indications:MDD (major depressive disorder), recurrent episode, moderate (HCC) Take 1 capsule (30 mg) by mouth Daily Do not crush or chew. 30 capsule 505Active celecoxib (CeleBREX) 200 MG capsule Indications:Rheumatoid arthritis involving multiple sites with positive rheumatoid factor (HCC)Take 1 capsule (200 mg) by mouth in the morning and 1 capsule (200 mg) before bedtime. 180 capsule 5Active insulin aspart (NovoLOG) 100 UNIT/ML pen Indications:Type 1 diabetes mellitus with hyperglycemia (HCC)USE 80 TOTAL UNITS DAILY CONTINUOUSLY WITH INSULIN PUMP. 80 mL 5Active Active Problems ProblemNoted DateDiagnosed DateMDD (major depressive disorder), recurrent episode, sjoenmkp33/10/2025 Assessment & Plan (03/14/2025 2:04 PM EDT): Symptoms worse and increase cymbalta to 90 mg daily. Rheumatoid arthritis with rheumatoid factor of multiple sites without organ or systems /22/2025Unsteadiness on feet01/24/2025SOB (shortness of breath) on idmffgwd28/13/2025 Assessment & Plan (01/15/2025 12:34 PM EDT): Continued SOB and former smoker. Check PFTs and start albuterol PRN. Cnfibawhxra25/07/2025 Assessment & Plan (01/15/2025 12:34 PM EDT): Signs of MARA and check sleep study. Assessment & Plan (12/10/2024 2:53 PM EDT): Signs of MARA and check sleep study. PAD (peripheral artery disease)09/19/2024 Assessment & Plan (09/19/2024 12:07 PM EST): Not lightheaded and monitor. Return to vascular. Coronary artery disease involving [place] coronary artery of [place] heart without angina ysjbwmeh27/15/2025 Assessment & Plan (03/14/2025 2:03 PM EDT): Follow with cardiology. Assessment & Plan (01/15/2025 12:34 PM EDT): Check stress test and follow with cardiology. Assessment & Plan (12/10/2024 2:53 PM EDT): Feels worse and follow up with cardiology. Assessment & Plan (09/19/2024 12:07 PM EST): No pain and continue medication. Recommend return to cardiology. Rheumatoid arthritis involving multiple sites with positive rheumatoid factor 09/19/2024 [...] of opiate therapy. Warned medication is narcotic andrisk of addiction. OARRS reviewed. Type 1 diabetes mellitus with /15/2025 Assessment & Plan (03/14/2025 2:04 PM EDT): BS stable and follow with endo. Assessment & Plan (12/10/2024 2:54 PM EDT): BS stable and follow with endo. Assessment & Plan (09/19/2024 12:14 PM EST): BS stable and follow with endo. Type I diabetes mellitus with omcbpskihpsppw31/15/2025 Assessment & Plan (03/14/2025 2:04 PM EDT): Symptoms stable and use norco PRN. Assessment & Plan (12/10/2024 2:54 PM EDT): Symptoms stable and continue neurontin. Assessment & Plan (09/19/2024 12:14 PM EST): Symptoms stable and continue neurontin. POTS (postural orthostatic tachycardia syndrome)09/19/2024 Assessment & Plan (03/14/2025 2:04 PM EDT): [...] atenolol. Encounter for long-term (current) use of /15/2025Type 1 diabetes mellitus with other circulatory hqnjrvnzyqzvd30/13/2024 Assessment & Plan (09/19/2024 12:14 PM EST): Follow with vascular. Vitamin D deficiency, pazqxrbzehk04/13/5813Uqnwrrujjsdr07/13/2024Presence of insulin pump (external) (internal)07/18/2024Long term (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 07/18/2024 Resolved Problems ProblemNoted DateDiagnosed DateResolved DateChest pain at rest01/15/2025 03/14/2025 Assessment & Plan (01/15/2025 12:33 PM EDT): Developed pain with exertion and prior 3 vessel CABG. Check lexiscan cardiolyte stress test. Followwith cardiology. Essential (primary) zyarlcxepsxi22Dietary counseling and ubvhrihngbep06 Encounters DateTypeDepartmentCare FfqeQveamposive51/16/4888Hwliol82/23/3669Hznsiy83/02/2025 Telephone [facility] [place] [facility] [address] [place] [address] Zeyad Tate MD Med Uebbao0204/15/2025Travelfrom Last 3 Months Immunizations ImmunizationAdministration DatesNext DueInfluenza, Veyukslkpda18/01/2020 Influenza, injectable, quadrivalent, preservative free08/05/2022,05/21/2021, 05/20/2020,06/08/2019Influenza, seasonal, yaxrbonxhy27/30/2019Pfizer Purple Cap SARS-CoV-2 Zwqwwzenwdx54/28/2021,11/27/2020,1Pneumococcal Conjugate PCV 1310Pneumococcal Polysaccharide VTXI2164/Pneumococcal, Pokilgwdpmx54/01/4931MHZU-HpQ-4, Ustquefshcp51/01/0498Vofg66/13/2020Tetanus Toxoid, Bpgufyabcax73/26/2013 Family History Medical HistoryRelationNameCommentsHeart diseaseFatherRelationNameStatusComments FatherDeceasedMotherDeceasedOther2 childrenAliveSiblingDeceased2 Social History Tobacco UseTypesPacks/DayYears UsedDateSmoking Tobacco: FormerCigarettes Smokeless Tobacco: Never Tobacco Cessation:Counseling Given: Not Answered Alcohol UseStandard Drinks/WeekCommentsNot Currently0 (1 standard drink = 0.6 oz pure alcohol)B1300 Health LiteracyAnswerDate RecordedHow often do you need to have someone help you when you read instructions, pamphlets, or other written material from your doctor or pharmacy?Never09/12/2024Social Connection and Isolation PanelAnswerDate RecordedIn a typical week, how many times do you talk on the phone with family, friends, or neighbors?More than three times a week 09/12/2024How often do you get together with friends or relatives?More than three times a week09/12/2024How often do you attend orthodox or islam services?More than 4 times per year09/12/2024Do you belong to any clubs or organizations such as orthodox groups, unions, [employer] or athletic groups, or school groups?No09/12/2024How often do you attend meetings of the clubs or organizations you belong to?Patient /08/2025re you , , , , never , or living with a partner?Tvkvmya0109/12/2024 AUDIT-CAnswerDate RecordedQ1: How often do you have a drink containing alcohol? Never09/12/2024Q2: How many drinks containing alcohol do you have on a typical day when you are drinking?Patient does not drink09/12/2024Q3: How often do you have six or more drinks on one occasion?Never09/12/2024Overall Financial Resource Strain (CARDIA)AnswerDate RecordedHow hard is it for you to pay for the very basics like food, housing, medical care, and heating?Not very hard 09/12/2024[facility] [place] [facility] - Occupational Stress QuestionnaireAnswerDate RecordedDo you feel stress - tense, restless, nervous, or anxious, or unable to sleep at night because yourmind is troubled all the time - these days?To some vlmftb3709/12/2024Exercise Vital SignAnswerDate Recorded On average, how many days per week do you engage in moderate to strenuous exercise (like a brisk walk)?0 days09/12/2024On average, how many minutes do you engage in exercise at this level?0 min09/12/2024Hunger Vital SignAnswerDate RecordedWithin the past 12 months, you worried that your food would run out before you got the money to buymore.Sometimes true09/12/2024Within the past 12 months, the food you bought just didn't last and you didn't have money to get more.Never true09/12/2024PRAPARE - TransportationAnswerDate RecordedIn the past 12 months, has lack of transportation kept you from medical appointments or from getting medications?Yes09/12/2024In the past 12 months, has lack of transportation kept you from meetings, work, or from getting things needed for daily living?Yes09/12/2024Housing Stability Vital SignAnswerDate RecordedIn the last 12 months, was there a time when you were not able to pay the mortgage or rent on time?No09/12/2024In the past 12 months, how many times have you moved where you were living?t any time in the past 12 months, were you homeless or living in a fci (including now)?No09/12/2024Comments UnknownSex and Gender InformationValueDate RecordedSex Assigned at BirthNot on fileLegal MkpXjfwrk13/15/2023 11:21 PM EDTGender IdentityNot on fileSexual IipoxogbzndLlwdmgnj55/30/2023 9:27 AM EDT Last Filed Vital Signs Vital SignReadingTime TakenCommentsBlood Cutanijt366/5807 1:27 PM EDT Xegcn1231 1:27 PM OLJKkgiwyfdtbr42.2 ??C (97.1 ??F)03/14/2025 1:27 PM EDTRespiratory Otni0232 1:27 PM EDTOxygen Zuqgynclkq52%03/14/2025 1:27 PM EDTInhaled Oxygen Concentration--Kcimbl39 kg (183 lb)03/14/2025 1:27 PM EDT Annxqp244.2 cm (5' 7 )03/14/2025 1:27 PM EDTBody Mass Index28.6607 1:27 PM EDT Plan of Treatment Not on file Insurance Care Teams Team MemberRelationshipSpecialtyStart DateEnd Date Rudolph Peter MD PCP - GeneralFamily Medicine09/19/24
--- OUTSIDE RECORDS SUMMARY | 2025-07-01 13:11 | XMS_ITS | Clinical Summary ---
Author Organization [employer] s tem Address [id number] [place] [address] Care Team Providers Care Access Clinician Name Role Phone Rudolph Peter MD Primary Care Provider [phone] Allergies Active AllergyReactionsCriticalityNoted JuszFnscakusCspieymdVdpw62/29/2021 BLISTERS (IF ON FOR TOO LONG) Bee Xgbacg1901/30/2020Bee Venom Protein (Honey Bee)06/03/2021 Other reaction(s): TROUBLE BREATHING Veadovtmie79/27/2020Icosapent UvjlsSotlnfxyg20/09/2022LisinoprilRashLow 01/30/2020 Red face Medications MedicationSigDispense QuantityRefillsLast FilledStart DateEnd DateStatus BABY ASPIRIN ORAL Take 81 mg by mouth daily. Active cholecalciferol, vitamin D3, 5,000 units tablet cholecalciferol (vitamin D3) 125 mcg (5,000 unit) tabletActive insulin aspart U-100 (NovoLOG) 100 unit/mL injection Novolog U-100 Insulin aspart 100 unit/mL subcutaneous solutionActive nitroglycerin (NITROSTAT) 0.4 MG SL tablet Indications:Coronary arteriosclerosis1 sublingually Q5 minutes prn chest pain 25 tablet ctive atorvastatin (LIPITOR) 80 mg tablet Take 1 tablet (80 mg total) by mouth in the morning. 100 tablet ctive insulin asp prt-insulin aspart (NovoLOG 70/30) 100 unit/mL (70-30) injection Inject under the skin.Active DULoxetine (CYMBALTA) 60 mg capsule Take 1 capsule (60 mg total) by mouth in the morning. 90 capsule ctive cyclobenzaprine (FLEXERIL) 10 mg tablet Indications:Strain of neck muscle, initial encounterTake 1 tablet (10 mg total) by mouth 3 (three) times a day as needed for muscle spasms. 30 tablet ctive atenoloL (TENORMIN) 50 mg tablet Take 1 tablet (50 mg total) by mouth in the morning. 90 tablet ctive celecoxib (CeleBREX) 200 mg capsule take 1 capsule by mouth twice a day every morning and BEFORE BEDTIME 60 capsule 4Active lancets ([employer] DELICA PLUS LANCET) 33 gauge misc TEST DIRECTED 5 TIMES A DAYActive ONETOUCH VERIO TEST STRIPS strip TEST DIRECTED 5 TIMES A DAYActive blood-glucose meter ([employer] VERIO REFLECT METER) misc use as directedActive HYDROcodone-acetaminophen (NORCO) 7.5-325 mg per tablet Indications:Rheumatoid arthritis involving multiple sites, unspecified whether rheumatoid factor present ([facility])Take 1 tablet by mouth in the morning. Max Daily Amount: 1 tablet. 21 tablet 03/29/2024ctive DULoxetine (CYMBALTA) 30 mg capsule take 1 capsule by mouth every morning 30 capsule 04/03/2024ctive gabapentin (NEURONTIN) 100 mg capsule Indications:Diabetic polyneuropathy associated with type 1 diabetes mellitus ([facility])Take 1 capsule (100 mg total) by mouth 3 (three) times a day. 90 capsule ctive finerenone (KERENDIA) 10 mg tablet Take 10 mg by mouth in the morning. 30 tablet 504Active hydroxychloroquine (PLAQUENIL) 200 mg tablet Indications:Rheumatoid arthritis involving multiple sites, unspecified whether rheumatoid factor present ([facility])Take 1 tablet (200 mg total) by mouth in the morning and 1 tablet (200 mg total) before bedtime. 60 tablet 5Active leflunomide (ARAVA) 20 mg tablet Indications:Rheumatoid arthritis involving multiple sites, unspecified whether rheumatoid factor present ([facility])Take 1 tablet (20 mg total) by mouth in the morning. 30 tablet 5Active Active Problems ProblemNoted DateDiagnosed DateLong-term use of leflunomide kvcsshv4811/19/2024 Status post partial amputation of left foot4Diabetic polyneuropathy associated with type 1 diabetes ctoijhoc52/01/2024Urge incontinence of urine 04/01/20237894Upvjlatarq53/28/2023PAD (peripheral artery disease)3Acute coronary /16/2022History of gchypcxsacwrykx89/16/2022History of coronary artery bypass mzvwtyl3505/21/2022History of coronary artery stent /16/2022Localized, primary osteoarthritis of hand05/21/2022 Xhnssbtfvru32/16/2794Cnnxotjfqggetxizisak57/02/2021Compression fracture of lumbar dcfbleqf53/25/2021Pathological fracture due to mouuaqpseuyo76/12/2020 Postural orthostatic tachycardia scctigjm02/12/2020Senile lxzarescapoy59/14/2020 Gastroesophageal reflux lmmqzij5608/18/20196825Lpfjrkf92/12/2019Coronary gwndkqmrxjyzqalg75/12/2019Deep vein thrombosis (DVT)08/16/2019Severe depression 08/16/20194037Ejanfuucbkee51/12/0678Gdrrmtcg57/12/2019Panic ptfwfr9708/16/2019Primary fibromyalgia poynywdu62/12/2019Rheumatoid kywaaozbm72/12/2019Type 1 diabetes wynsjbgq40/05/1964 Encounters DateTypeDepartmentCare RzgbVvqtpubjgvt16/29/2025Refill [facility] [address] [facility] [address] [place] [address] Belgica Saba MD Rheumatoid arthritis involving multiple sites, unspecified whether rheumatoid factor present ([facility])from Last 3 Months Immunizations ImmunizationAdministration DatesNext DueCOVID-19, mRNA, LNP-S, PF, 30mcg/0.3mL Dose11/06/2020Influenza, Injectable, quadrivalent (PF)07/12/2023,08/05/2022, 05/21/2021,05/20/2020,06/08/2019Influenza, Xdomchejepj54/01/2020Pneumococcal Conjugate 13-Rihyrg9106/11/2020Pneumococcal Pykjzikmvwhxti19/15/2020Pneumococcal, Tzhfohmpgvm47/01/9204FVYP-CRF-9 (COVID-19) Vaccine, Xdbbkibsbqo48/01/2021Tdap 09/17/2019Tetanus Toxoid, Vyfybnbhxsl81/26/2013 Family History Medical HistoryRelationNameCommentsStrokeBrother 1blood clot went to brain after surgery for soft tissue mass on legNo Known ProblemsBrother 2motorcycle accident at age 22No Known ProblemsDaughterCerebral aneurysmFatherLeslieHypertension FatherLeslieStrokeFatherLeslieArthritisMaternal GrandmotherDorisLived with it DementiaMotherStrokePaternal GrandfatherDiabetesPaternal GrandmotherNo Known ProblemsSonRelationNameStatusCommentsBrother 1DeceasedBrother 2DeceasedDaughter AliveFatherLeslieDeceasedGranddaughterAliveGrandson 1AliveGrandson 2Alive Maternal GrandfatherDeceasedMaternal GrandmotherDorisDeceasedMotherDeceased Paternal GrandfatherDeceasedPaternal GrandmotherDeceasedSonAlive Social History Tobacco UseTypesPacks/DayYears UsedDateSmoking Tobacco: FormerCigarettes2.524 1975 - 06/06/1997Smokeless Tobacco: Never Tobacco Cessation:Counseling Given: Not Answered Alcohol UseStandard Drinks/WeekCommentsNot Currently0 (1 standard drink = 0.6 oz pure alcohol)Social Connection and Isolation PanelAnswerDate RecordedIn a typical week, how many times do you talk on the phone with family, friends, or neighbors?More than three times a week11/19/2022How often do you get together with friends or relatives?More than three times a week11/19/2022How often do you attend jewish or scientology services?More than 4 times per year3Do you belong to any clubs or organizations such as jewish groups, unions, fraternal or athletic groups, or school groups?Yes11/19/2022How often do you attend meetings of the clubs or organizations you belong to?More than 4 times per year11/19/2022 Are you , , , , never , or living with a partner?Tkqxgxy10/17/2023AUDIT-CAnswerDate RecordedQ1: How often do you have a drink containing alcohol?Never01/30/2020Average Number of DrinksNot on file 01/30/2020Frequency of Binge DrinkingNot on file01/30/2020Overall Financial Resource Strain (CARDIA)AnswerDate RecordedHow hard is it for you to pay for the very basics like food, housing, medical care, and heating?Somewhat hard 12/03/2023HQ-2AnswerDate RecordedTotal Ptqfb4725[facility] [place] of Occup[facility] - Occupational Stress QuestionnaireAnswerDate RecordedDo you feel stress - tense, restless, nervous, or anxious, or unable to sleep at night because yourmind is troubled all the time - these days?To some qpatxw1911/19/2022 Exercise Vital SignAnswerDate RecordedOn average, how many days per week do you engage in moderate to strenuous exercise (like a brisk walk)?0 days04/01/2023On average, how many minutes do you engage in exercise at this level?0 min 04/01/2023RAPARE - TransportationAnswerDate RecordedIn the past 12 months, has lack of transportation kept you from medical appointments or from getting medications?No12/03/2023In the past 12 months, has lack of transportation kept you from meetings, work, or from getting things needed for daily living?No 12/03/2023Housing InstabilityAnswerDate RecordedAre you worried or concerned that in the next two months you may not have stable housing that you own, rent or stay in as a part of a household?No12/03/2023hildcareAnswerDate RecordedDo problems getting director of child welfare services make it difficult for you to work or study?No 11/19/2022EmploymentAnswerDate RecordedDo you need help finding a local career center and/or a training program?No11/19/2022Hunger ScreeningAnswerDate Recorded Within the past 12 months we worried whether our food would run out before we got money to buy more.Never True04/13/2024Within the past 12 months the food we bought just didn't last and we didn't have money to get more.Never True 04/13/2024urpose - LifeAnswerDate RecordedI have a purpose and direction in my life.Neither Agree nor Ctgpuncn92/17/2023CommentsNoSex and Gender InformationValueDate RecordedSex Assigned at QjccnIygzsm01/11/2023 1:36 AM EST Legal YwtUmidod15/14/2020 10:27 AM ESTGender KpirbnkjBssymu38/11/2023 1:36 AM ESTSexual AtbbqidvozbVhjfmgdt30/11/2023 1:36 AM EST Last Filed Vital Signs Vital SignReadingTime TakenCommentsBlood Wqsvqvor162/64011/19/2024 1:38 PM EDT Dqzhx715804/13/2024 11:43 AM XPKLtztpbtrigb00.7 ??C (98 ??F)04/13/2024 11:43 AM EDTRespiratory Jctk880411/19/2024 1:38 PM EDTOxygen Ojsfumxwvz82%04/13/2024 11:43 AM EDTInhaled Oxygen Concentration--Tvdgid47.4 kg (186 lb)11/19/2024 1:38 PM EDT Zsdafz927.2 cm (5' 7.01 )11/19/2024 1:38 PM EDTBody Mass Index29.12011/19/2024 1:38 PM EDT Plan of Treatment Health MaintenanceDue DateLast DoneCommentsStatin Use: Shpmhbkubtomvo06/17/1960 Statin Use: Dlsqcmmf04/17/1960Adult BMI Follow Up Plan12/20/1977Zoster (Shingles) Vaccine (1 of 2)12/20/20098088Qslbtvaxfgx72/17/2262Wupltdzdt47/17/2023 Diabetic Foot Exam/iabetic Ophthalmology Exam06/30/2024 06/30/2023, 07/12/2022Medicare Annual Wellness Visit Depression Pzijtkjiv43Fall Risk Gwarggtrf23/05/2024 Influenza Qrhjowx41/03/2023, 08/05/2022, 05/21/2021, Additional history existsAdult BMI Dlgwguvub36Tobacco Pfiqiypst12/17/2026 11/19/2024DTaP,Tdap and Td Vaccines (2 - Td or Tdap)COVID-19 FhoaqfqPqwbirykhfxt54/28/2021, 11/27/2020, 11/06/2020, Additional history exists Medical Devices Not on file Procedures Procedure NamePriorityDate/TimeAssociated DiagnosisCommentsHM DIABETES EYE EXAM Xehcvuw4307/12/2022from Last 3 Months or Most Recently Relevant to Health Maintenance Results * DIABETES EYE EXAM (07/12/2022) Narrative Authorizing ProviderResult TypeResult StatusNot In System Ref ProvHEALTH MAINTENANCEFinal ResultPerforming OrganizationAddressCity/State/ZIP CodePhone Number MANUALLY TRANSCRIBED RESULTS from Last 3 Months or Most Recently Relevant to Health Maintenance Insurance Care Teams Team MemberRelationshipSpecialtyStart DateEnd Rudolph Peter MD [facility]09/21/24
--- OUTSIDE RECORDS SUMMARY | 2025-07-01 13:11 | XMS_ITS | Encounter Summary ---
Author Organization [facility] Address [address] [place] [address] Care Team Providers Care Supervisor Sewing Department Name Role Phone Rudolph Peter MD Primary Care Provider [phone] Encounter Details DateTypeDepartmentCare Team (Latest Contact Info)Kcorbzseawj49/16/2025Travel Social History Tobacco UseTypesPacks/DayYears UsedDateSmoking Tobacco: FormerCigarettes Smokeless Tobacco: NeverAlcohol UseStandard Drinks/WeekCommentsNot Currently0 (1 standard drink = 0.6 oz pure alcohol)B1300 Health LiteracyAnswerDate RecordedHow often do you need to have someone help you when you read instructions, pamphlets, or other written material from your doctor or pharmacy?Never 09/12/2024Social Connection and Isolation PanelAnswerDate RecordedIn a typical week, how many times do you talk on the phone with family, friends, or neighbors?More than three times a week09/12/2024How often do you get together with friends or relatives?More than three times a week09/12/2024How often do you attend christianity or restorationism services?More than 4 times per year09/12/2024Do you belong to any clubs or organizations such as christianity groups, unions, fraternal or athletic groups, or school groups?No09/12/2024How often do you attend meetings of the clubs or organizations you belong to?Patient caufjjvp69/08/2025re you , , , , never , or living with a partner? Ecihete1209/12/2024UDIT-CAnswerDate RecordedQ1: How often do you have a drink containing alcohol?Never09/12/2024Q2: How many drinks containing alcohol do you have on a typical day when you are drinking?Patient does not drink09/12/2024Q3: How often do you have six or more drinks on one occasion?Never09/12/2024Overall Financial Resource Strain (CARDIA)AnswerDate RecordedHow hard is it for you to pay for the very basics like food, housing, medical care, and heating?Not very hard09/12/2024[facility] [place] [facility] - Occupational Stress QuestionnaireAnswerDate RecordedDo you feel stress - tense, restless, nervous, or anxious, or unable to sleep at night because yourmind is troubled all the time - these days?To some ktsjdg3709/12/2024Exercise Vital SignAnswerDate Recorded On average, how many [...] were you homeless or living in a intermediate (including now)?No09/12/2024Comments UnknownSex and Gender InformationValueDate RecordedSex Assigned at BirthNot on fileLegal QiwVrjnwj33/15/2023 11:21 PM EDTGender IdentityNot on fileSexual BcydxyvarsvPadoyrmq88/30/2023 9:27 AM EDTdocumented as of this encounter Plan of Treatment Not on file documented as of this encounter Visit Diagnoses Not on filedocumented in this encounter Care Teams Team MemberRelationshipSpecialtyStart DateEnd Date Rudolph Peter MD PCP - GeneralFamily Medicine09/19/24documented as of this encounter
--- OUTSIDE RECORDS SUMMARY | 2025-07-01 13:11 | XMS_ITS | Clinical Summary ---
Author Organization [facility] Address [address] [place] [address] Care Team Providers Care Dry Goods Inspector Name Role Phone Rudolph Peter MD Primary Care Provider [phone] Allergies Active AllergyReactionsCriticalityNoted PbldFjnujaviMyqpskwmWufwiDdnt91/29/2021 BLISTERS (IF ON FOR TOO LONG) Bee OohvoeZuwly85/27/2020Bee Venom Protein (Honey Bee)Shortness of breathHigh 06/03/2021 Other reaction(s): TROUBLE BREATHING Other reaction(s): TROUBLE BREATHING WvaspcosbbWbwrnoe54/27/4142SdtcsbqYuzqq29/27/2020 Other Reaction(s): GETS HYPERACTIVE Icosapent QhtnlNjnpbjlug17/09/2022LisinoprilOther,EfrrMgm0801/30/2020 Other Reaction(s): LOW BLOOD PRESSURE Red face VlffbijaQgtmu82/27/2020 Other Reaction(s): PASS OUT Medications MedicationSigDispense QuantityRefillsLast FilledStart DateEnd DateStatus atenolol (Tenormin) 50 mg tablet Take 1 tablet by mouth in the morning.Active celecoxib (CeleBREX) 200 mg capsule take 1 capsule by mouth twice a day every morning and BEFORE MXKGLZM7303/20/2024 Active DULoxetine (Cymbalta) [address] capsule take 1 capsule by mouth once daily ALONG WITH A 60 MG ZAWLIK6004/03/2024ctive DULoxetine (Cymbalta) [address] capsule take 1 capsule by mouth once daily ALONG WITH 30MG XWATSAV4612/09/2023ctive nitroglycerin (Nitrostat) 0.4 mg SL tablet 1 sublingually Q5 minutes prn chest pain11/19/2022ctive atorvastatin (Lipitor) 80 mg tablet Take 1 tablet by mouth in the morning.Active methocarbamol (Robaxin) 500 mg tablet Indications:Type I or II open fracture of right tibia and fibula, initial encounter,Fracture of shaft of tibia and fibula, closed, left, initial encounter ,Fall, initial encounterTake 1 tablet (500 mg) by mouth three times daily. 90 tablet 05/01/2024ctive acetaminophen (Tylenol 8 Hour) 650 mg ER tablet Take 650 mg by mouth every 8 (eight) hours if needed for mild pain (1-3 pain score). Do not crush, chew, or split.Active vitamin D3-folic acid 2,500 unit- 1 mg tablet Take 2 capsules by mouth in the morning.Active docusate sodium (Colace) 100 mg capsule Take 100 mg by mouth two times daily.Active enoxaparin (Lovenox) 40 mg/0.4 mL syringe Inject 40 mg under the skin in the morning.Active gabapentin (Neurontin) 100 mg capsule Take 100 mg by mouth three times daily.Active ibuprofen 400 mg tablet Take 400 mg by mouth every 6 (six) hours if needed for moderate pain (4-7 pain score).Active lactulose 10 gram/15 mL solution Take 20 g by mouth three times daily.Active levothyroxine (Synthroid, Levoxyl) 75 mcg tablet Take 75 mcg by mouth before breakfast.Active lidocaine (Lidoderm) 5 % patch Apply 1 patch topically in the morning. Remove & discard patch within 12 hours or as directed by MD.Active loperamide (Imodium A-D) 2 mg tablet Take 2 mg by mouth if needed in the morning, at noon, in the evening, and at bedtime for diarrhea.Active melatonin 3 mg capsule Take by mouth.Active polyethylene glycol (Glycolax) oral powder Take 17 g by mouth in the morning.Active sennosides (Senokot) 8.6 mg tablet Take 1 tablet by mouth in the morning.Active cyclobenzaprine (Flexeril) 10 mg tablet 10 mg if needed in the morning, at noon, and at bedtime for muscle spasms. 02/09/2024ctive hydroxychloroquine (Plaquenil) 200 mg tablet Take 200 mg by mouth twice a day.11/19/2024tive NovoLOG U-100 Insulin aspart 100 unit/mL injection vial INJECT 50 UNITS SUBCUTANEOUSLY (UNDER THE SKIN) DAILYActive methotrexate 2.5 mg tablet 4 tabs PO once a week5Active HYDROcodone-acetaminophen ([place]) 5-325 mg tablet Take 1 tablet by mouth every 4 (four) hours if needed for severe pain (8-10 pain score).Active aspirin 81 mg EC tablet Take 81 mg by mouth in the morning.Active cetirizine (ZyrTEC) 10 mg tablet Take 10 mg by mouth in the morning.Active Active Problems ProblemNoted DateDiagnosed DateChronic osteomyelitis of right lower leg 06/27/2025Right tibial foneqczs62/23/2025MDD (major depressive disorder), recurrent episode, pzxnlowt32/10/2025Unsteadiness on feet01/24/2025SOB (shortness of breath) on vreoyfcq94/13/8734Oqxpzxlwdxo66/07/2025Type 1 diabetes mellitus with lyjixltgivxlb15/15/1316Cxoslvqpxovn39/13/2024Long term (current) use of lagqyfl9807/18/2024resence of insulin pump (external) (internal)07/18/2024 Type 1 diabetes mellitus with other circulatory chowtkmztdcjr64/13/2024Vitamin D deficiency, bmoippgdvho73/13/5947Lmhb86/18/2024Type I or II open fracture of right tibia and fibula, initial ogkuqnimo55/18/2024Type I or II open fracture of right tibia and srhkre3004/21/2024Fracture of shaft of tibia and fibula, closed, left, initial dgaxeslct80/17/2024iabetic polyneuropathy associated with type 1 diabetes eecpjqkv08/01/2024Status post partial amputation of left foot12/05/2023 Dhakghmbvl36/28/2023Urge incontinence of urine04/01/2023AD (peripheral artery disease)11/19/2022History of gppofkcthnmkyjx53/16/2022History of coronary artery bypass zjwcewc5405/21/2022Localized, primary osteoarthritis of hand05/21/2022 Qpcykweeyye85/16/2022History of coronary artery stent ugfionbll56/16/2022 Ncvhfwiiphaawowytasq42/02/2021Compression fracture of lumbar pgghyvfb27/25/2021 Xdlqcxdew78/31/2020Postural orthostatic tachycardia xctssijb94/12/2020 Gastroesophageal reflux xjxcwcx6608/18/2019Coronary ygubjlydgngczelz56/12/2019 Yaivaimoxufx77/12/8992Pseuakvm61/12/2019Panic wdcyzu1308/16/2019Primary fibromyalgia /12/2019Rheumatoid ozarlxiwb06/12/2019Severe depression 08/16/2019 Resolved Problems ProblemNoted DateDiagnosed DateResolved DateAcute coronary /16/2022 4Deep vein thrombosis (DVT) Encounters DateTypeDepartmentCare TygsUkosondtybs15/03/2025 2:45 PM EDTFollow-Up [facility] [address] [place] [address] [place] [address] Christian Shipman MD Chronic osteomyelitis with draining sinus, right tibia and fibula (CMS/HCC) (Primary Dx); Tibia/fibula fracture, right, open type I or II, initial encounter; Tibia/fibula fracture, left, closed, initial encounter; Age-related osteoporosis without current pathological fracture; Diabetic polyneuropathy associated with type 1 diabetes mellitus (CMS/HCC) 05/08/2025 1:32 PM EDT - 05/08/2025 11:59 PM EDTHospital Encounter [facility] [address] [place] [address] [place] [id number] Tibia/fibula fracture, right, open type I or II, initial encounter; Tibia/fibula fracture, left, closed, initial encounter Discharge Disposition: Home or Self Care (01)from Last 3 Months Immunizations ImmunizationAdministration DatesNext DueInfluenza, injectable, quadrivalent, preservative free07/12/2023,08/05/2022,05/21/2021,05/20/2020,06/08/2019 Pneumococcal Conjugate PCV 131 Family History Medical HistoryRelationNameCommentsBroken bonesFatherLeslie EinhipleCoronary artery diseaseFatherLeslie EinhipleStrokeFatherLeslie EinhipleAnesthesia problemsMotherFrances EinhippleBroken bonesMotherFrances EinhippleOsteoporosis MotherFrances EinhippleRelationNameStatusCommentsFatherLeslie EinhipleMother [facility] Social History Tobacco UseTypesPacks/DayYears UsedDateSmoking Tobacco: FormerCigarettes1.515 Smokeless Tobacco: Never Tobacco Cessation:Counseling Given: Not Answered Alcohol UseStandard Drinks/WeekCommentsNever0 (1 standard drink = 0.6 oz pure alcohol)[facility] UtilitiesAnswerDate RecordedIn the past 12 months has the [employer], gas, oil, or water [employer] threatened to shut off services in your home?No 05/14/2024Humiliation, Afraid, Rape, and Kick questionnaireAnswerDate Recorded Within the last year, have you been afraid of your partner or ex-partner?No 07/09/2024Emotionally AbusedNot on file07/09/2024hysically AbusedNot on file 07/09/2024Sexually AbusedNot on file07/09/2024Overall Financial Resource Strain (CARDIA)AnswerDate RecordedHow hard is it for you to pay for the very basics like food, housing, medical care, and heating?Not hard at all05/14/2024HQ-2 AnswerDate RecordedPatient Health Questionnaire-2 Swjor609Transportation AnswerDate RecordedIn the past 12 months, has lack of transportation kept you from medical appointments or from getting medications?No05/14/2024Lack of Transportation (Non-Medical)Not on file05/14/2024Housing Stability Vital Sign AnswerDate RecordedUnable to Pay for Housing in the Last YearNot on file 05/14/2024Number of Places Lived in the Last YearNot on file05/14/2024In the last 12 months, was there a time when you did not have a steady place to sleep or slept in ashelter (including now)?No05/14/2024Hunger Vital SignAnswerDate RecordedWithin the past 12 months, you worried that your food would run out before you got the money to buymore.Never true05/14/2024an Out of Food in the Last YearNot on file09/09/2024CommentsNoSex and Gender InformationValue Date RecordedSex Assigned at WopwqTqzepr20/09/2024 12:53 PM ESTLegal SexFemale 03/04/2022 12:29 AM EDTGender NlsaycmvPtnyou88/09/2024 12:53 PM ESTSexual OrientationHeterosexual or Fsxbbtzq66/03/2025 9:04 AM EST Last Filed Vital Signs Vital SignReadingTime TakenCommentsBlood Papalwus134/6803 8:50 AM EDT Qwwja411711/30/2024 8:50 AM FHOBuipfbaiedh45.8 ??C (98.2 ??F)05/01/2024 6:12 AM EDTRespiratory Bjia891905/01/2024 6:12 AM EDTOxygen Szyauxxcoi63%11/30/2024 8:50 AM EDTInhaled Oxygen Concentration--Wmicmv59 kg (183 lb)05/08/2025 1:55 PM EDT Kalhim364.2 cm (5' 7 )05/08/2025 1:55 PM EDTBody Mass Index28.6609 1:55 PM EDT Plan of Treatment DateTypeDepartmentCare Team (Latest Contact Info)Bydmenxueol73/27/2025 3:00 PM EDTOffice Visit [facility] [address] [place] [address] Cameron Randhawa, CREDIT UNION EXAMINER [address] [place] [address] 08/07/2025 3:00 PM ESTFollow-Up [facility] [address] [place] [address] [place] [address] Christian Shipman MD [address] [place] [phone] Health MaintenanceDue DateLast DoneCommentsCT Zvdgzvezyqtw65/17/1960Colonoscopy 1959Colorectal Cancer Fyjqqqjpr28/17/1960FIT-DNA1959FIT1959 FOBT1959Medicare Annual Wellness (AWV)1959Medicare Initial Physical (IPPE)12/21/19591540Haohmytjjjjtr79/17/1960Diabetes: Retinopathy Lvtzlzyjx04/17/1970 Pap Smear12/20/1980Cervical Cancer Mpqbiacnd29/17/1990HPV/Udmzxj8112/20/1989 Sdbmzefyw13/17/2000Zoster Vaccines (1 of 2)12/20/2009Diabetes: Hemoglobin A1C Diabetes: Urine Protein Syfgwryop04/OVID- 19 Vaccine ( season)/, 11/27/2020, 11/06/2020, Additional history existsInfluenza Vaccine (#1)/03/2023, 08/05/2022, 05/21/2021, Additional history existsPneumococcal Vaccine: 50+ Years (3 of 3 - PCV20 or PCV21), 06/05/2020, 05/20/2020Depression Screening /11/2024Fall Risk Mkixxomdt49/dult Tetanus HIB VaccinesAged OutNo longer eligible based on patient's age to complete this topicHPV VaccinesAged OutNo longer eligible based on patient's age to complete this topicIPV VaccinesAged OutNo longer eligible based on patient's age to complete this topicMeningococcal B VaccineAged OutNo longer eligible based on patient's age to complete this topicMeningococcal VaccineAged OutNo longer eligible based on patient's age to complete this topicRotavirus VaccinesAged OutNo longer eligible based on patient's age to complete this topic Medical Devices ImplantedTypeAreaManufacturerDevice IdentifierShelf Expiration DateModel / Serial / LotT2 Alpha Tibia Implanted:Qty: 1 on 04/22/2024 by [facility] [employer]iaStryker [id number] / / [id number] Alpha Nail Implanted:Qty: 1 on 04/22/2024 by [facility]: TibiaStryker [id number]/31/2033 [id number] / / [id number] Screws Advanced Locking Screw Implanted:Qty: 1 on 04/22/2024 by [facility]: [employer] [id number] / / [id number] Screws Advanced Locking Screw Implanted:Qty: 1 on 04/22/2024 by [facility]: [employer] [id number] / / [id number] Screws Advanced Locking Screw Implanted:Qty: 1 on 04/22/2024 by [facility]: [employer] [id number] / / [id number] Screws Advanced Locking Screw Implanted:Qty: 1 on 04/22/2024 by [facility]: [employer] [id number] / / [id number] Screws Advanced Locking Screw Implanted:Qty: 1 on 04/22/2024 by Christian Ship[facility]: [employer] [id number] / / [id number] Screws Advanced Locking Screw Implanted:Qty: 1 on 04/22/2024 by Christian Ship[facility]: [employer] [id number] / / [id number] Screws Advanced Locking Screw Implanted:Qty: 1 on 04/22/2024 by Christian Ship[facility]: [employer] [id number] / / [id number] Screws Advanced Locking Screw Implanted:Qty: 1 on 04/22/2024 by Christian Ship[facility]: [employer] [id number] / / [id number] Screws Advanced Locking Screw Implanted:Qty: 1 on 04/22/2024 by Christian Shipman [facility]: [employer] [id number] / / [id number] Alpha Tibial System End Cap Tibia Implanted:Qty: 1 on 04/22/2024 by [facility]Right: Tib[employer]ker [id number]/30/2032 [id number] / / [id number] Alpha Tibia End Cap Tibia Implanted:Qty: 1 on 04/22/2024 by Christian Shipman [facility]: TibiaStryker [id number]/31/2033 [id number] / / [id number] Procedures Procedure NamePriorityDate/TimeAssociated DiagnosisCommentsXR TIBIA FIBULA 2 VIEWS AVHWFcgjnbj14/03/2025 1:52 PM EDT Tibia/fibula fracture, left, closed, initial encounter XR TIBIA FIBULA 2 VIEWS RKICAZefyibv77/03/2025 1:52 PM EDT Tibia/fibula fracture, right, open type I or II, initial encounter HEMOGLOBIN O4IXtudrwl43/26/2020 11:36 AM EDT from Last 3 Months or Most Recently Relevant to Health Maintenance Results * XR tibia fibula 2 views right (05/08/2025 1:52 PM EDT)Anatomical Region LateralityModalityLower Extremities, Lower LegRightComputed Radiography Specimen (Source)Anatomical Location / LateralityCollection Method / Volume Collection TimeReceived Time05/09/2025 2:38 PM EDT Impressions 05/09/2025 2:39 PM [...] *Vascular calcification. Electronically signed: MANUEL PINEDA MD. Authorizing ProviderResult TypeResult StatusChristian Shipman MDH[facility]CREST [facility] XR PROCEDURES Final Result * XR tibia fibula 2 views left (05/08/2025 1:52 PM EDT)Anatomical Region LateralityModalityLower Extremities, Lower LegLeftComputed RadiographySpecimen (Source)Anatomical Location / LateralityCollection Method / VolumeCollection TimeReceived Time05/09/2025 2:41 PM EDT Impressions 05/09/2025 2:42 PM [...] *Bone demineralization. Electronically signed: MANUEL PINEDA MD. Authorizing ProviderResult TypeResult StatusChristian Shipman MDIMKemar XR PROCEDURES Final Result * (ABNORMAL) Hemoglobin A1c (06/30/2020 11:36 AM EDT)ComponentValueRef RangeTest MethodAnalysis TimePerformed AtPathologist SignatureHemoglobin A1C8.6(H)4.0 - 6.0 %LAB CONVERSIONSEstimated Average Xlxjwju542wckl/LLAB CONVERSIONSSpecimen (Source)Anatomical Location / LateralityCollection Method / VolumeCollection TimeReceived Time06/30/2020 11:36 AM EDT1 6:28 PM EDT Narrative LAB CONVERSIONS - 07/01/2020 10:26 AM EDT Yes: Add to Previous draw if able Authorizing ProviderResult TypeResult StatusGeneric Provider ConversionLAB BLOOD ORDERABLESFinal ResultPerforming OrganizationAddressCity/State/ZIP CodePhone Number LAB CONVERSIONS from Last 3 Months or Most Recently Relevant to Health Maintenance Insurance Advance Directives * Full Code (Latest Code Status on File) Date ActivatedDate InactivatedComments04/22/2024 3:26 AM05/01/2024 5:35 PM Care Teams Team MemberRelationshipSpecialtyStart DateEnd Date Rudolph Peter MD [address] [place] [address] PCP - GeneralFamily Medicine11/23/24
--- OUTSIDE RECORDS SUMMARY | 2025-07-01 13:16 | XMS_ITS | CCD ---
Author Organization [facility] Care Team Providers Care Clinical Psychologist Licensed Name Role Phone SELF, REFERRED Referring Unavailable YISLE, ALEXANDER Admitting Unavailable CHILANGO MARTINEZ Surgeon Unavailable DIONNE HYATT Attending Unavailable MT Procedure Practitioner Unavailab le UNKNOWN, PHYSICIAN Primary Care Unavailable SELF, REFERRED Referring Unavailable SELF, REFERRED Primary Care Unavailable CHILANGO MARTINEZ Attending Unavailable CHILANGO MARTINEZ Admitting Unavailable Veronica Mcneill Unavailable RADHA BRANNON Admitting Unavailable RADHA BRANNON Attending Unavailable FURLOKATY, DR ZEN Reinoso Primary Care Unavailable HIGHLRADHA [...] FURLONG, DR ZEN Reinoso Primary Care Unavailable SUFFOLK, DR ANN García Consulting Unavailable HIGHLANDER, RADHA [...] FURLONG, DR ZEN Reinoso Primary Care Unavailable MINAEBER, DR RICHARD Sidhu Consulting Unavailable DEBI, FARIBA Consulting Unavailable DEBI, FARIBA Admitting Unavailable DEBI, FARIBA Attending Unavailable FURLONG, DR ZEN Reinoso Primary Care Unavailable FURLONG, DR ZEN Reinoso Primary Care Unavailable REINFREYA, DR JAMES Reinoso Consulting Unavailabl e REINFREYA, DR JAMES Reinoso Admitting Unavailabl e REINECK, DR JAMES Reinoso Attending Unavailabl e FURLONG, DR ZEN Reinoso Primary Care Unavailable HAY, DR HARRELL Admitting Unavailable HAY, DR HARRELL Attending Unavailable HAY, DR HARRELL Consulting Unavailable RICHARD BRONSON Consulting Unavailable FURLONG, DR ZEN Reinoso Primary Care Unavailable HAY, DR HARRELL Admitting Unavailable HAY, DR HARRELL Attending Unavailable HAY, DR HARERLL Consulting Unavailable MARY, JANETT Consulting Unavailable AKILAJOEL Consulting Unavailable GIOVANNI KHALIL Consulting Unavailable NADEREThea, DR RUDOLPH Farnsworth Attending Unavailable LICHA, DR RUDOLPH Farnsworth Admitting Unavailable FURLONG, DR ZEN Reinoso Primary Care Unavailable JEAN-PAUL, DR CHAYITO Sidhu Consulting Unavailable ALESSANDRO, DR HENRY Consulting Unavailable NADEREThea, DR RUDOLPH Farnsworth Consulting Unavailable HIGHLCHRISTINA, RADHA Nogueira Consulting Unavailable ANDRADE DIAL Consulting Unavailable ENRRIQUE GONCALVES Consulting Unavailable HIGHLANDER, RADHA Nogueira Procedure Practitioner Unava ilable MADISON, GIN Consulting Unavailable FURLONG, DR ZEN Reinoso Primary Care Unavailable FAWWAD, CAMPBELL H Admitting Unavailable FAWWAD, CAMPBELL H Attending Unavailable SHANKAR, DR ANN García Consulting Unavailable ZIEBER, DR RICHARD Sidhu Consulting Unavailable HIGHLANDERRADHA Consulting Unavailable FAHANNAHD, H Consulting Unavailable VAZQUEZ Pedroza, GIAN LUJAN Consulting Unavailable SOLA STEVE Consulting Unavailable HERRERA NOLAN Consulting Unavailable FURLONG, DR ZEN Reinoso Primary Care Unavailable ALESSANDRO, DR HENRY Consulting Unavailable JEROMY, DR NAOMIE Dalton Admitting Unavailable PINZON, DR NAOMIE Dalton Attending Unavailable PINZON, DR NAOMIE Dalton Consulting Unavailable ZIEBER, DR RICHARD Sidhu Consulting Unavailable HIGHLANDER, RADHA Nogueira Consulting Unavailable GAYLESILVINA Anderson Consulting Unavailable AYYABRENDA WESTFALL Consulting Unavailable MCCORNARICHARD MILLER Consulting Unavailable MIKHAIL, DANNY Consulting Unavailable RADHA BRANNON Admitting Unavailable HIGHLCHRISTINA, RADHA Nogueira Attending Unavailable SANDRA, DR ZEN Reinoso Primary Care Unavailable HIGHLCHRISTINA, RADHA Nogueira Consulting Unavailable FURLONG, DR ZEN Reinoso Admitting Unavailable FURLONG, DR ZEN Reinoso Attending Unavailable FURLONG, DR ZEN eRinoso Primary Care Unavailable HIGHLCHRISTINA, RADHA Nogueira Admitting Unavailable HIGHLCHRISTINA, RADHA Nogueira Attending Unavailable [...] DEMETRA PORTER Attending Unavailable FURLONGZEN Referring Unavailable FURLONG, ZEN [...] Unavailable Furlong Zen SHAVER Primary Care Provider [phone] Rudolph Hurt MD Primary Care Provider Furlong DO, Zen G Primary Care Provider [phone] Rudolph Hurt MD Primary Care Provider DEMETRA [...] Provider Rudolph Hurt MD Primary Care Provider [phone] RUDOLPH HURT Attending Unavailable SRIRAM, AHMAD F Attending Unavailable SRIRAM, AHMAD F Referring Unavailable SRIRAM, AHMAD F Attending Unavailable SRIRAM, AHMAD F Referring Unavailable NADERER, RUDOLPH Attending Unavailable SANJEEV CHAIREZ Attending Unavailable VIVIANARRUDOLPH Referring Unavailable NADERERRUDOLPH Attending Unavailable RUDOLPH HURT Attending Unavailable SHENDGE, KARLHAL Attending Unavailable SHENDGE, VITHAL Attending Unavailable SHENDGE, VITHAL Referring Unavailable SHENDGE, VITHAL Referring Unavailable SHENDGE, VITHAL Referring Unavailable SHENDGE, VITHAL Referring Unavailable SHENDGE, VITHAL Referring Unavailable SHENDGE, VITHAL Referring Unavailable SHENYOLANDAE, VITHAL Attending Unavailable TY CARTER Attending Unavailable SHENDGE, KARLHAL Attending Unavailable SHENDGE, VITHAL Attending Unavailable ISABELLAE, KARLHAL Attending Unavailable Rudolph Hurt MD Primary Care Provider Mark Garcia DO Attending Provider [phone] Allergies Allergy ClassificationReported Allergen(s)Allergy TypeDate of OnsetReaction(s) Facility (1 source)Adhesive TapeDrug allergy (disorder)13-07-6066Zaj [facility] Repository (7 sources)Amino Acids; Translations: [LISINOPRIL]Drug Mjpixoa05-85-2996Hyv [facility] Repository (1 source)Bee/Wasp/Ant venom; Translations: [Bee/Wasp Stings]Propensity to adverse reactions (disorder)67-19-2935Xtb [facility] Repository (6 sources)Codeine; Translations: [CODEINE]Drug Iwbtqsd29-03-1221[facility] (6 sources)Morphine; Translations: [MORPHINE]Drug Qstqetv62-53-3518Nqa [facility] Repository (2 sources)bee venomDrug allergy (disorder)The [facility] Repository (4 sources)cilostazol; Translations: [CILOSTAZOL]Drug Rsgixih78-16-6280Iul [facility] Repository (2 sources)DesonideDrug AllergyThe [facility] Repository (4 sources)HYDROmorphone; Translations: [HYDROMORPHONE]Drug Qnlwjsk52-34-0374Vwk [facility] Repository (1 source)icosapent ethylDrug AllergyThe [facility] Repository (20 sources)Adhesive agent; Translations: [ADHESIVE]Propensity to adverse reactions to drug (disorder)14-61-6216KypIxfoxn Repository (20 sources)Bee pollen; Translations: [BEE POLLEN]Propensity to adverse reactions to drug (disorder)00-35-9126ApxVbstkp Repository (20 sources)icosapent ethyl; Translations: [ICOSAPENT ETHYL]Drug Allergy 37-77-3479LixjywbyxVhlHcajwn Repository (20 sources)BEE VENOM PROTEIN (HONEY BEE); Translations: [BEE VENOM PROTEIN (HONEY BEE)]Propensity to adverse reactions to drug (disorder)06-03-2021 [facility] Repository (20 sources)CodeineDrug Evzxqkx11-12-9836GqmxbZtlKikrxb [facility] (20 sources)Honey bee venomPropensity to adverse kisfqlgcz34-76-7741XKXH [facility] (20 sources)HYDROmorphoneDrug Olgdfhw68-59-2477LJXP [facility] (20 sources)LisinoprilAllergy to fmrdbabnt87-34-3983SqpggAXGR [facility] (20 sources)MorphineDrug Gpsqzqc02-26-1018UsljoTomOqzzmu Health System (20 sources)Wound Dressing AdhesiveDrug Zotmxfepidv61-85-4578[facility] (20 sources)cilostazolDrug Odfptnz82-54-3861ErmFuvyqf Health System (20 sources)LisinoprilDrug Gqoenrm97-92-9709ZlcqXrvLkdksr Health System Medications Current Medications MedicationDrug Class(es)DatesSig (Normalized)Sig (Original)acetaminophen 325 mg / HYDROcodone bitartrate 5 mg oral tablet (20 sources)Opioid AgonistStart: 05-16-2025 End: 16-35-8024ptme 1 tablet by mouth every six hours as needed for pain Hydrocodone-Acetaminophen 5-325 mg tablet Active 1 TAB PO Every 6 hours as needed for pain 60 15 0 May 16, 2025 Rheumatoid arthritis involving multiple sites with positive rheumatoid factor Complies with drug therapyStart: 03-14-2025 End: 95-79-6878dzfk 1 tablet by mouth four times daily as needed for pain HYDROcodone-acetaminophen ([place]) 5-325 MG tablet Indications: Rheumatoid arthritis involving multiple sites with positive rheumatoid factor (HCC) Take 1 tablet by mouth 4 (four) times a day as needed for severe pain for up to 15 days 60 tablet 03/14/2025 03/29/2025 ActiveStart: 12-27-2024 End: 30-84-1103dwxs 1 tablet by mouth four times daily as needed for pain HYDROcodone-acetaminophen ([place]) 5-325 MG tablet Indications: Rheumatoid arthritis involving multiple sites with positive rheumatoid factor (HCC) Take 1 tablet by mouth 4 (four) times a day as needed for severe pain for up to 7 days 28 tablet 02/26/2025 03/05/2025 ActiveStart: 12-03-2024 End: 48-40-8062rjya 1 tablet by mouth four times daily as needed for pain HYDROcodone-acetaminophen ([place]) 5-325 MG tablet Indications: Rheumatoid arthritis involving multiple sites with positive rheumatoid factor (CMS/HCC) Take 1 tablet by mouth 4 (four) times a day as needed for severe pain for up to 7 days 28 tablet 12/03/2024 12/10/2024 ActiveStart: 11-12-2024 End: 87-41-6069fmmq 1 tablet by mouth four times daily as needed for pain HYDROcodone-acetaminophen ([place]) 5-325 MG tablet Indications: Rheumatoid arthritis involving multiple sites with positive rheumatoid factor (CMS/HCC) Take 1 tablet by mouth 4 (four) times a day as needed for severe pain for up to 7 days 28 tablet 11/12/2024 11/19/2024 ActiveStart: 10-19-2024 End: 43-37-5736xuoh 1 tablet by mouth four times daily as needed for pain HYDROcodone-acetaminophen ([place]) 5-325 MG tablet Indications: Rheumatoid arthritis involving multiple sites with positive rheumatoid factor (CMS/HCC) Take 1 tablet by mouth 4 (four) times a day as needed for severe pain for up to 7 days 28 tablet 10/19/2024 10/26/2024 ActiveStart: 09-19-2024 End: 01-91-2264yvnb 1 tablet by mouth four times daily as needed for pain HYDROcodone-acetaminophen ([place]) 5-325 MG tablet Indications: Rheumatoid arthritis involving multiple sites with positive rheumatoid factor (CMS/HCC) Take 1 tablet by mouth 4 (four) times a day as needed for severe pain for up to 7 days 28 tablet 09/19/2024 09/26/2024 ActiveStart: 90-15-6308hqds 1 tablet by mouth once daily in the morningHYDROcodone-acetaminophen ([place]) 7.5-325 mg per tablet Indications: Rheumatoid arthritis involvingmultiple sites, unspecified whether rheumatoid factor present (CMS-HCC) Take 1 tablet by mouth in the morning. Max Daily Amount: 1 tablet. 21 tablet 03/29/2024 ActiveStart: 10-18-2023 End: 24-84-9581hsbd 1 tablet by mouth twice daily as needed for painHYDROcodone- acetaminophen ([place]) 7.5-325 mg per tablet Indications: Rheumatoid arthritis involvingmultiple sites, unspecified whether rheumatoid factor present (CMS-HCC) Take 1 tablet by mouth 2 (two) times a day as needed for pain. 60 tablet 0 12/05/2023 ActiveStart: 08-18-2023 End: 01-72-1162orfw 1 tablet by mouth twice daily as needed for painHYDROcodone- acetaminophen ([place]) 7.5-325 mg per tablet Indications: Compression fracture of L1 vertebra with routine healing, subsequent encounter Take 1 tablet by mouth 2 (two) times a day as needed for pain. 14 tablet 0 10/05/2023 10/16/2023 Discontinued (Reorder) End: 16-65-4019EDARYtrewev-acetaminophen ([place]) 5-325 MG tablet 09/19/2024 DiscontinuedHYDROcodone-Acetaminophen Yvcsbpusv814842 200 actuat albuterol 0.09 mg/actuat metered dose inhaler (20 sources)beta2-Adrenergic AgonistStart: 14-14-7009xigp 2 puff(s) by inhalation every four hours for wheezingalbuterol HFA 90 mcg/act inhaler Indications: SOB (shortness of breath) on exertion Inhale 2 puffs every 4 (four) hours if needed for shortness of breath or wheezing 18 g 2 01/15/2025 Active Start: 10-55-4061mibo 2 puff(s) by inhalation every four to six hours as needed Albuterol Sulfate HFA 108 (90 Base) MCG/ACT 2 puffs as needed Inhalation every 4-6 hours for 14 days Jul, Active End: 02-99-1720gvah 2 puff(s) by inhalation every six hours as neededalbuterol (PROVENTIL HFA;VENTOLIN HFA) 90 mcg/actuation inhaler Inhale 2 puffs every 6 (six) hours as needed. 03/26/2024 Discontinued (Patient Stopped On Own)aspirin 81 mg delayed release oral tablet (20 sources)Platelet Aggregation Inhibitor, Nonsteroidal Anti-inflammatory Drug take 1 tablet by mouth once dailyaspirin 81 MG EC tablet Take 81 mg by mouth Daily Activetake 81 mg by mouth once dailyBABY ASPIRIN ORAL Take 81 mg by mouth daily. Activeatenolol 50 mg oral tablet (20 sources)beta-Adrenergic BlockerStart: 59-82-0831Vjkikcdb 50 mg tablet Active MG PO March 11, 2025 12:00am Complies with drug therapyStart: 06-17-2023 End: 17-47-2349gnau 1 tablet by mouth in the morningatenolol (Tenormin) 50 MG tablet Indications: POTS (postural orthostatic tachycardia syndrome) TAKE1 TABLET BY MOUTH IN THE MORNING 90 tablet 3 01/29/2025 ActiveAtenolol Active atorvastatin 80 mg oral tablet (20 sources)HMG-CoA Reductase InhibitorStart: 62-91-2049Qazyjzvlijqj 80 mg tablet Active MG PO March 11, 2025 12:00am Complies with drug therapyStart: 05-17-2023 End: 87-87-3311xytv 1 tablet by mouth once dailyatorvastatin (Lipitor) 80 MG tablet Indications: Coronary artery disease involving [place] coronary artery of [place] heart without angina pectoris Take 1 tablet (80 mg) by mouth Daily 90 tablet 3 02/26/2025 ActiveAtorvastatin Calcium Activebenzonatate 100 mg oral capsule (1 source)Non-narcotic AntitussiveStart: 35-41-6170jivt 1 capsule by mouth every eight hoursTessalon Perles 100 MG 1 capsule as needed Orally Three times a day for 7 days Jul, ActiveBlood Glucose Monitoring Suppl (OneTouch Verio Reflect) w/Device kit (6 sources) End: 53-87-6807Klyij Glucose Monitoring Suppl (OneTouch Verio Reflect) w/Device kit 09/19/2024 DiscontinuedBlood Glucose Monitoring Suppl (OneTouch Verio Reflect) w/Device kit Activeblood-glucose meter (ONETOUCH VERIO REFLECT METER) [facility] [place] (11 sources)blood-glucose meter (ONETOUCH VERIO REFLECT METER) [facility] [place] use as directed Activecarbamide peroxide 65 mg/ml otic solution (1 source)Start: 65-56-7662Jlqrdxdtj Peroxide (Debrox) 6.5 % drops Active 5 DROPS EAR-BOTH Daily 15 4 0 March 11, 2025 12:00amComplies with drug therapy cariprazine 1.5 mg oral capsule (6 sources)Atypical Antipsychotic End: 08-51-0203Gkxoxiucacl HCl (Vraylar) 1.5 MG capsule Take by mouth 09/19/2024 Discontinuedcelecoxib 200 mg oral capsule (20 sources)Nonsteroidal Anti-inflammatory DrugStart: 09-19-2024 End: 68-87-9216Bcwogwlye 200 mg capsule Active MG PO March 11, 2025 12:00am Complies with drug therapyStart: 08-18-2023 End: 07-70-1602jfqd 1 capsule by mouth in the morningcelecoxib (CeleBREX) 200 MG capsule Indications: Rheumatoid arthritis involving multiple sites withpositive rheumatoid factor (CMS/HCC) Take 1 capsule (200 mg) by mouth in the morning and 1 capsule (200 mg) before bedtime. 60 capsule 3 09/19/2024 Activecholecalciferol 0.125 mg oral tablet (20 sources)Vitamin Dcholecalciferol, vitamin D3, 5,000 units tablet cholecalciferol (vitamin D3) 125 mcg (5,000 unit) tablet Active End: 89-55-3232dumu 1 capsule by mouth in the morningcholecalciferol (Vitamin D- 3) 25 MCG (1000 UT) capsule Take 1,000 Units by mouth in the morning. 09/19/2024 Discontinuedcholecalciferol, vitamin D3, 5,000 units tablet cholecalciferol (vitamin D3) 125 mcg (5,000 unit) tablet 0 ActiveContinuous Glucose Oracle Consultant (FreeStyle Tru 14 Day [place]) device (6 sources) End: 96-45-2997Hlizdaqqfl Glucose Oracle Consultant (FreeStyle Tru 14 Day [place]) device 09/19/2024 DiscontinuedContinuous Glucose Oracle Consultant (FreeStyle Tru 14 Day [place]) device ActiveContinuous Glucose Sensor (FreeStyle Tru 14 Day Sensor) misc (6 sources) End: 33-73-4347Blxhnfhika Glucose Sensor (FreeStyle Tru 14 Day Sensor) misc 09/19/2024 DiscontinuedContinuous Glucose Sensor (FreeStyle Tru 14 Day Sensor) [facility] [place] Activecyclobenzaprine hydrochloride 10 mg oral tablet (20 sources)Muscle RelaxantStart: 02-09-2024 End: 62-12-2837urma 1 tablet by mouth three times daily as needed for muscle spasmscyclobenzaprine (FLEXERIL) 10 mg tablet Indications: Strain of neck muscle, initial encounter Take 1 tablet (10 mg total) by mouth 3 (three) times a day as needed for muscle spasms. 30 tablet 1 02/09/2024 ActiveStart: 06-06-2023 End: 32-90-3341fcro 1 tablet by mouth every eight hourscyclobenzaprine (FLEXERIL) 10 mg tablet take 1 tablet by mouth every 8 hours if needed 90 tablet 1 06/06/2023 02/09/2024 Discontinued (Reorder)24 hr dilTIAZem hydrochloride 180 mg extended release oral capsule (6 sources)Calcium Channel Rakan End: 37-33-7655ftor 1 capsule by mouth once daily, then take 1 capsule by mouth every twenty-four hoursdilTIAZem CD (Cardizem CD) 180 MG 24 hr capsule Take 180 mg by mouth Daily 09/19/2024 DiscontinuedDULoxetine 30 mg delayed release oral capsule (20 sources)Serotonin and Norepinephrine Reuptake InhibitorStart: 08-18-2023 End: 80-21-4002Opgsraqdik 30 mg capsule,delayed release(DR/EC) Active MG PO March 11, 2025 12:00am Complies with drug therapyStart: 04-05-2023 End: 85-75-8702sdfg 1 capsule by mouth once dailyDuloxetine 60 mg capsule,delayed release(DR/EC) Active 60 MG PO Daily 01 02June 14, 2025 12:00am Complies with drug therapyDULoxetine HCl Activefinerenone (KERENDIA) 10 mg tablet (4 sources)Start: 08-97-6661jkfi 1 tablet by mouth in the morningfinerenone (KERENDIA) 10 mg tablet Take 10 mg by mouth in the morning. 30 tablet 5 04/16/2024 ActiveStart: 04-13-2024 End: 64-47-8149wrru 1 tablet by mouth in the morningfinerenone (KERENDIA) 10 mg tablet Take 10 mg by mouth in the morning. 90 tablet 1 04/13/2024 04/13/2024 Discontinued (Error)FreeStyle Tru 14 Day Sensor (1 source)FreeStyle Tru 14 Day Sensor ActiveHYDROcodone bitartrate 7.5 mg / ibuprofen 200 mg oral tablet (6 sources)Opioid Agonist, Nonsteroidal Anti-inflammatory Drug End: 28-87-6032IEXVHrldgif-ibuprofen (Vicoprofen) 7.5-200 MG tablet 09/19/2024 Discontinuedhydroxychloroquine sulfate 200 mg oral tablet (1 source)Antimalarial, Antirheumatic AgentStart: 53-66-9449pwfc 1 tablet by mouth in the morning, then take 1 tablet by mouth at bedtimehydroxychloroquine (PLAQUENIL) 200 mg tablet Indications: Rheumatoid arthritis involving multiple sites, unspecified whether rheumatoid factor present (CMS-HCC) Take 1 tablet (200 mg total) by mouth in the morning and 1 tablet (200 mg total) before bedtime. 60 tablet 2 11/19/2024 Activeinsulin aspart protamine, human 70 unt/ml / insulin aspart, human 30 unt/ml injectable suspension (20 sources)Insulin Analoginsulin asp prt-insulin aspart (NovoLOG 70/30) 100 unit/mL (70-30) injection Inject under the skin.Active End: 48-69-0076cwifiwj aspart protamine-insulin aspart (NovoLOG Mix 70-30) (70- 30) 100 UNIT/ML injection Inject under the skin 2 (two) times a day with meals. 09/19/2024 Discontinuedinsulin asp prt-insulin aspart (NovoLOG 70/30) 100 unit/mL (70-30) injection Inject under the skin.0 Activeinsulin aspart, human 100 unt/ml injectable solution (20 sources)Insulin AnalogStart: 60-16-6026Eymykmb Aspart U-100 (Novolog U-100 Insulin Aspart) 100 unit/mL solution Active SUBCUT March 11, 2025 12:00am Complies with drug therapyStart: 08-21-2024 End: 53-09-1417Iuhcdeq Aspart (NovoLOG) 100 UNIT/ML solution Indications: Type 1 diabetes mellitus with hyperglycemia (HCC) Inject 50 Units as directed Daily 60 mL 1 08/21/2024 Active End: 74-38-5545mbpnwcj aspart (NovoLOG, Fiasp) 100 UNIT/ML patient supplied pump Inject under the skin continuously Activeinsulin aspart U-100 (NovoLOG) 100 unit/mL injection Novolog U-100 Insulin aspart 100 unit/mL subcutaneous solution Activeinsulin aspart U-100 (NovoLOG) 100 unit/mL injection Novolog U-100 Insulin aspart 100 unit/mL subcutaneous solution 0 ActiveNovoLOG Activeleflunomide 20 mg oral tablet (18 sources)Antirheumatic AgentStart: 80-70-1919qtze 1 tablet by mouth in the morningleflunomide (ARAVA) 20 mg tablet Indications: Rheumatoid arthritis involving multiple sites, unspecified whether rheumatoid factor present (CMS- HCC) Take 1 tablet (20 mg total) by mouth in the morning. 30 tablet 5 11/19/2024 Activetake 1 tablet by mouth once dailyleflunomide (Arava) 10 MG tablet Take 10 mg by mouth Daily Active End: 83-85-7539evxd 1 tablet by mouth once dailyleflunomide (Arava) 20 MG tablet Take 20 mg by mouth Daily 09/19/2024 DiscontinuedLeflunomide Activelevothyroxine sodium 0.075 mg oral tablet (20 sources)l-ThyroxineStart: 40-47-1466bjrg 1 tablet by mouth before mealtime levothyroxine (Synthroid, Levoxyl) 75 MCG tablet Indications: Dyslipidemia Take 1 tablet (75 mcg) by mouth in the morning. Take before meals. 90 tablet 3 09/24/2024 Activetake 1 tablet by mouth before mealtimelevothyroxine (Synthroid, Levoxyl) 75 MCG tablet Take 75 mcg by mouth in the morning. Take before meals. Activemethocarbamol 500 mg oral tablet (20 sources)Muscle RelaxantStart: 67-55-7990utgc 1 tablet by mouth every eight hours for muscle spasmsmethocarbamol (Robaxin) 500 MG tablet Indications: Rheumatoid arthritis involving multiple sites with positive rheumatoid factor ([facility]) Take 1 tablet (500 mg) by mouth every 8 (eight) hours if needed for muscle spasms 90 tablet 09/24/2024 ActiveStart: 81-68-6640yhnxfdeifeeji (Robaxin) 500 MG tablet Take 500 mg by mouth in the morning and 500 mg at noon and 500 mg in the evening. 05/01/2024 Activemidodrine hydrochloride 10 mg oral tablet (6 sources)alpha-Adrenergic Agonist End: 57-16-3969dume 1 tablet by mouth in the morning, then take 1 tablet by mouth in the evening, then take 1 tablet by mouth at bedtimemidodrine (Proamatine) 10 MG tablet Take 10 mg by mouth in the morning and 10 mg in the evening and10 mg before bedtime. 09/19/2024 Discontinuednitroglycerin 0.4 mg sublingual tablet (20 sources)Nitrate VasodilatorStart: 02-01-2913qrvgmaabrybiy (NITROSTAT) 0.4 MG SL tablet Indications: Coronary arteriosclerosis 1 sublingually I9loektfc prn chest pain 25 tablet 1 11/19/2022 Activenitroglycerin (Nitrostat) 0.[address] 0.4 mg under the tongue every 5 (five) minutes if needed for chest pain Activeondansetron 4 mg oral tablet (6 sources)Serotonin-3 Receptor Antagonist End: 24-93-7032igefzatqgqb (Zofran) 4 MG tablet Take by mouth. 09/19/2024 Discontinuedpantoprazole 40 mg delayed release oral tablet (20 sources)Proton Pump Inhibitor End: 03-60-6299xzzw 1 tablet by mouth before mealtimepantoprazole (ProtoNix) 40 MG EC tablet Take 40 mg by mouth in the morning. Take before meals. Do not crush, chew, or split.. 09/19/2024 DiscontinuedPantoprazole Sodium Active Completed/Discontinued Medications MedicationDrug Class(es)DatesSig (Normalized)Sig (Original)Finerenone (2 sources)Start: 03-11-2025 End: 83-14-1090Fwxgyerdwx (Kerendia) 10 mg tablet Discontinued MG PO March 11, 2025 12:00am March 11, 2025 12:59pmfolic acid 1 mg oral tablet (20 sources)Start: 09-19-2024 End: 07-69-8136vggt 1 tablet by mouth once dailyfolic acid (Folvite) 1 MG tablet Indications: Rheumatoid arthritis involving multiple sites with positive rheumatoid factor (HCC) Take 1 tablet (1 mg) by mouth Daily 30 tablet 5 09/19/2024 03/14/2025DiscontinuedFolic Acid Activegabapentin 100 mg oral capsule (20 sources)Anti-epileptic AgentStart: 04-13-2024 End: 81-64-6662Hhezelpjlt 100 mg capsule Discontinued MG PO March 11, 2025 12:00am March 11, 2025 12:59pmmethotrexate 2.5 mg oral tablet (20 sources)Folate Analog Metabolic InhibitorStart: 09-19-2024 End: 60-51-5386oodg 4 tablets by mouth every weekmethotrexate 2.5 MG tablet Indications: Rheumatoid arthritis involving multiple sites with positive rheumatoid factor (HCC) 4 tabs PO once a week 16 tablet 5 09/19/2024 03/14/2025 Discontinued Problems Active Problems Problem ClassificationProblemDateDocumented DateEpisodic/ChronicAcquired foot deformities (2 sources)Other hammer toe(s) (acquired), left foot; Translations: [Hallux varus (acquired), unspecified foot]Onset: 15-04-0946NxobdgqKaiorhy disorders (20 sources)Anxiety disorder, unspecified; Translations: [Other specified anxiety disorders]Onset: 958812-55-2788EfsfrjyCnfygju dysrhythmias (20 sources)Other specified cardiac arrhythmias; Translations: [Unspecified atrial fibrillation]Onset: 026500-38-1263QcetljtQqftbsy kidney disease (1 source)Chronic kidney disease; Translations: [CHRONIC KIDNEY DISEASE STAGE 3A]Onset: 19-28-2571Hprdlcd ulcer of skin (4 sources)Non-pressure chronic ulcer of left heel and midfoot with fat layer exposed; Translations: [Non-pressure chronic ulcer of other part of left foot with fat layer exposed]Onset: 20-10-5305OwjzacoEjlxfpsv atherosclerosis and other heart disease (20 sources)Atherosclerotic heart disease of [place] coronary artery without angina pectoris; Translations: [Coronary arteriosclerosis]Onset: 08-16-2019 05-04-9224QepgyjlMegyacwp mellitus with complications (20 sources)Type 2 diabetes mellitus with hypoglycemia without coma; Translations: [Type 2 diabetes mellitus with foot ulcer]Onset: 96-51-3283Iyrejqh Diabetes mellitus without complication (20 sources)Type 2 diabetes mellitus without complications; Translations: [Patient encounter status]Onset: 137592-00-7567FecaptxUmbwwfhid of lipid metabolism (20 sources)Pure hypercholesterolemia, unspecified; Translations: [Mixed hyperlipidemia]Onset: 333587-13-0023AkzhcekJowciwonim disorders (20 sources)Gastro-esophageal reflux disease without esophagitis; Translations: [Gastroesophageal reflux disease]Onset: 417636-48-5532ArvnuqwAurdvzsj of lower limb (6 sources)Unspecified fracture of shaft of right tibia, initial encounter for open fracture type I or II; Translations: [Unspecified fracture of shaft of right fibula, initial encounter for open fracture type I or II]Onset: 04-22-2024 EpisodicGenitourinary symptoms and ill-defined conditions (20 sources)Urge incontinence of urine; Translations: [Urge incontinence]Onset: 897742-12-3086DebckpcOjhsddgb; including migraine (20 sources)Migraine; Translations: [Migraine, unspecified, not intractable, without status migrainosus]Onset: 239581-29-3451HkkhxpqXzhvnorvpnuy with complications and secondary hypertension (1 source)Hypertensive chronic kidney disease with stage 1 through stage 4 chronic kidney disease, or unspecified chronic kidney disease; Translations: [HTN CKD W/STAGE 1-4 CKD/UNS CKD]Onset: 04-60-1509VhoayxtItygzxvo disorders (20 sources)Sarcoidosis; Translations: [Sarcoidosis, unspecified]Onset: 118420-29-1929LwbspzwZfgtefdslvomm and screening for infectious disease (2 sources)Contact with and (suspected) exposure to other viral communicable diseases; Translations: [Encounter for immunization]Onset: 07-27-2021 Resolved: 14-63-6935IkujvuauGsjxblrvy arthritis and osteomyelitis (except that caused by tuberculosis or sexually transmitted disease) (3 sources)Other osteomyelitis, unspecified sites; Translations: [Other chronic osteomyelitis, right tibia andfibula]Onset: hronic Intracranial injury (2 sources)Concussion without loss of consciousness, initial encounter; Translations: [Concussion with no lossof consciousness]Onset: 02-09-2024 90-90-6321PlbnaiunMoob disorders (20 sources)Major depressive disorder, single episode, unspecified; Translations: [Major depressive disorder, single episode, severe without psychotic features]Onset: 909515-49-5564KzkzwlpAmwjyg and vomiting (1 source)Vomiting, unspecified; Translations: [VOMITING UNSPECIFIED]Onset: 59-67-1898NfnrmwtmYcpgmwdvrel chest pain (16 sources)Chest pain, unspecified; Translations: [Other chest pain]Onset: 04-30-2022 Resolved: 70-08-0763WrdxxmqhTplkbtdoyrr deficiencies (20 sources)Vitamin D deficiency; Translations: [Vitamin D deficiency, unspecified]Onset: 728277-17-6718GwyvqwoAstuuzzmmqbrnj (20 sources)Unspecified osteoarthritis, unspecified site; Translations: [Primary osteoarthritis, right ankle and foot]Onset: 37-69-4836ZbwlvzoPuqmlcocafuw (20 sources)Age-related osteoporosis without current pathological fracture; Translations: [Senile osteoporosis]Onset: 246843-80-4459PknbmhbHlokk acquired deformities (1 source)Contracture, left ankle; Translations: [CONTRACTURE LEFT ANKLE]Onset: 66-44-3334ImwpeokAihbn aftercare (1 source)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; Translations: [[employer] 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 INSULIN]Onset: 70-23-0666LdwpahghAqtzq aftercare (2 sources)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; Translations: [OTH [employer] CURRENT DRUG THERAPY]Onset: 20-45-5344KckovgwsTjyuy aftercare (1 source)half-way (current) use of aspirin; Translations: [JAIL 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 ASPIRIN]Onset: 36-63-7112TslaytahKdojw aftercare (1 source)Drug therapy finding; Translations: [Other [place] [facility] (current) drug therapy]12-77-8119WilbiwzxQxhta aftercare (2 sources)Long-term current use of leflunomide; Translations: [Other [place] [facility] (current) drug therapy]Onset: 156780-39-7251NusaddvzLmczh bone disease and musculoskeletal deformities (1 source)Acquired absence of left foot; Translations: [Acquired absence of left foot]Onset: 53-60-5019HmvirkqLdsbp bone disease and musculoskeletal deformities (20 sources)History of amputation of left foot; Translations: [Acquired absence of left foot]Onset: 353241-00-3672SlgigpiVkfti gastrointestinal disorders (1 source)Diarrhea, unspecified; Translations: [DIARRHEA UNSPECIFIED]Onset: 25-23-4374UjesibjvHsyjj lower respiratory disease (1 source)Personal history of pneumonia (recurrent); Translations: [PERSONAL HX OF PNEUMONIA RECURRENT]Onset: 09-94-4524TmhkdugwFticu lower respiratory disease (10 sources)Dyspnea on exertion; Translations: [Shortness of breath]Onset: 034786-07-8815PyrudutaMdnev nervous system disorders (5 sources)Unsteady when standing; Translations: [Unsteadiness on feet]Onset: 622071-80-9379VxhrgiodYmlqcgryzt and visceral atherosclerosis (20 sources)Peripheral vascular disease, unspecified; Translations: [Peripheral vascular disease, unspecified]Onset: 900593-54-0300AfspntpCghrsznd codes; unclassified (18 sources)Hypersomnia; Translations: [Hypersomnia, unspecified]Onset: 371793-30-0853AvyivrtGpbythrq codes; unclassified (3 sources)Transient alteration of awareness; Translations: [TRANSIENT ALTERATION OF AWARENESS]Onset: 25-02-7366FutkdtaeMmxvmwvv codes; unclassified (1 source)Acquired absence of other specified parts of digestive tract; Translations: [ACQ ABSENCE OTH PART DIGESTV TRACT]Onset: 08-73-8336Vxiphbkd Rheumatoid arthritis and related disease (20 sources)Rheumatoid arthritis, unspecified; Translations: [Rheumatoid nodule, right ankle and foot]Onset: 038435-28-4170FiokmsrGlyeqlydc and history of mental health and substance abuse codes (1 source)Personal history of nicotine dependence; Translations: [PERSONAL HISTORY OF NICOTINE DEPEND]Onset: 14-80-9089ChpimyfiGxlkutrinl (except in labor) (5 sources)Sepsis, unspecified organism; Translations: [Sepsis due to Enterococcus]Onset: 58-47-6293TwsiugssCenvazx and strains (4 sources)Strain of muscle, fascia and tendon at neck level, initial encounter; Translations: [Strain of unspecified muscle, fascia and tendon at shoulder and upper arm level, right arm, initial encounter]Onset: 013564-75-5973 EpisodicSubstance-related disorders (1 source)Other psychoactive substance dependence with withdrawal, unspecified; Translations: [OTH PSYCHOACTVDEPEND W/D UNSPEC]Onset: 16-33-3404Irwlnuc Unclassified (1 source)CONTACT W/AND (SUSP) EXPOS COVID-19; Translations: [CONTACT W/AND (SUSP) EXPOS COVID-19]Onset: 62-88-9870Kgkdxbeztzow (1 source)PERSONAL HISTORY OF COVID-19; Translations: [PERSONAL HISTORY OF COVID-19]Onset: 82-06-5265Azbfxivjfdzc (1 source)ACIDOSIS UNSPECIFIED; Translations: [ACIDOSIS UNSPECIFIED]Onset: 73-95-6880Cxpktwwyrcgq (1 source)controlled subOnset: 18-01-2302Anpcwwf tract infections (1 source)Urinary tract infection, site not specified; Translations: [UTI SITE NOT SPECIFIED]Onset: 69-03-1892Huseqrlv Past or Other Problems Problem ClassificationProblemDateDocumented DateEpisodic/ChronicAbdominal pain (4 sources)Unspecified abdominal pain; Translations: [UNSPECIFIED ABDOMINAL PAIN]Onset: 91-44-3659AnitdkkjXvofjqfb foot deformities (1 source)Other acquired deformities of left foot; Translations: [OTHER ACQUIRED DEFORMITIES LT FOOT]Onset: 90-80-8500RggsvzmbMuihklhz foot deformities (1 source)Other acquired deformities of right foot; Translations: [OTHER ACQUIRED DEFORMITIES RT FOOT]Onset: 27-07-6385OnosctbeQrspp 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 renal failure (1 source)Acute kidney failure, unspecified; Translations: [ACUTE KIDNEY FAILURE UNSPECIFIED]Onset: 01-34-0464XnhukdyaXztrccj dysrhythmias (1 source)Tachycardia, unspecified; Translations: [TACHYCARDIA UNSPECIFIED] Onset: 16-27-1299IrleugufJsbafgkezxrjb of surgical procedures or medical care (5 sources)Other complications of procedures, not elsewhere classified, initial encounter; Translations: [OTH COMPLICATIONS PROC NEC INITIAL]Onset: 03-18-2022 EpisodicCoronary atherosclerosis and other heart disease (4 sources)Presence of aortocoronary bypass graft; Translations: [Presence of coronary angioplasty implant andgraft]Onset: 77-68-1187HhsahivbDfgjdbwi mellitus without complication (20 sources)Presence of insulin pump (external) (internal); Translations: [Insulin pump present]Onset: 078960-04-5348AcogpxjfW Codes: Fall (1 source)Unspecified fall, initial encounter; Translations: [UNSPECIFIED FALL INITIAL ENCOUNTER]Onset: 69-84-0712FmcukfyoBinylfxhm hypertension (20 sources)Essential (primary) hypertension; Translations: [Essential hypertension]Onset: 08-16-2019 Resolved: 340478-16-3168VusbfsqNvkcs and electrolyte disorders (2 sources)Dehydration; Translations: [Hyperkalemia]Onset: EpisodicFracture of lower limb (4 sources)Unspecified fracture of shaft of left tibia, initial encounter for closed fracture; Translations: [Unspecified fracture of shaft of left fibula, initial encounter for closed fracture]Onset: 61-33-4889NgjwxqogCjrovvveqzrib symptoms and ill-defined conditions (3 sources)Dysuria; Translations: [Proteinuria, unspecified]Onset: 05-21-2022 EpisodicMalaise and fatigue (4 sources)Weakness; Translations: [Other fatigue]Onset: EpisodicMood disorders (20 sources)Mood disorders; Translations: [DEPRESSION UNSPECIFIED]Onset: 07-12-2023 Resolved: Open wounds of extremities (4 sources)Puncture wound without foreign body, left foot, initial encounter; Translations: [PUNCT WOUND W/O FB LT FOOT INITIAL]Onset: 66-31-5754FwlefrunJfpei aftercare (2 sources)Encounter for therapeutic drug level monitoring; Translations: [Encounter for therapeutic drug level monitoring]Onset: 93-05-7682PamcdimnKyqvm aftercare (20 sources)Patient encounter status; Translations: [Dietary counseling and surveillance]Onset: 07-18-2024 Resolved: 671695-77-7634MaxwqdmsWqfmm aftercare (20 sources)Long-term current use of insulin; Translations: [half-way (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]Onset: 971326-30-0493UbytpyglYmske aftercare (20 sources)Long-term current use of drug therapy; Translations: [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]Onset: 278381-70-5807ZjitnqhmWasas bone disease and musculoskeletal deformities (1 source)Acquired absence of other right toe(s); Translations: [ACQUIRED ABSENCE OTHER RIGHT TOES]Onset: 76-82-3189ZgsfwcklTtdfy circulatory disease (4 sources)Other specified symptoms and signs involving the circulatory and respiratory systems; Translations:[OTH SPEC SX SIGNS INVLV CIRC RS]Onset: 89-32-6935XbufepnoIpnlb circulatory disease (2 sources)Postural orthostatic tachycardia syndrome ; Translations: [Postural orthostatic tachycardia syndrome (POTS)]Onset: 60-58-2600ObaxzmtqQnium connective tissue disease (4 sources)Pain in right foot; Translations: [PAIN IN RIGHT FOOT]Onset: 85-40-0269DrpzgcvlGzstk connective tissue disease (4 sources)Other specified soft tissue disorders; Translations: [OTHER SPEC SOFT TISSUE DISORDERS]Onset: 79-82-9561WteuepccOqznz connective tissue disease (1 source)Plantar fascial fibromatosis; Translations: [PLANTAR FASCIAL FIBROMATOSIS]Onset: 56-66-1933BnsciuwoJotsp connective tissue disease (1 source)Bursopathy, unspecified; Translations: [BURSOPATHY UNSPECIFIED]Onset: 55-90-8148SatxmotxXtrdy connective tissue disease (1 source)Pain in left foot; Translations: [PAIN IN LEFT FOOT]Onset: 01-08-2022 EpisodicOther connective tissue disease (20 sources)Primary fibromyalgia syndrome; Translations: [Fibromyalgia]Onset: 278620-17-0938YhfrcxqiWvmcx fractures (1 source)Wedge compression fracture of first lumbar vertebra, sequela; Translations: [Wedge compression fracture of first lumbar vertebra, sequela] Onset: 22-17-2069AsqjcahzPodnw fractures (1 source)Wedge compression fracture of first lumbar vertebra, subsequent encounter for fracture with routinehealing; Translations: [Wedge compression fracture of first lumbar vertebra, subsequent encounter for fracture with routine healing]Onset: 43-51-0986NpbvjkfwQotle fractures (20 sources)Compression fracture of lumbar spine; Translations: [Wedge compression fracture of unspecified lumbar vertebra, initial encounter for closed fracture]Onset: 771205-15-8694UpgmeytqMnjxv gastrointestinal disorders (1 source)Constipation, unspecified; Translations: [CONSTIPATION UNSPECIFIED] Onset: 83-99-8513FxdhcnkeUvreg injuries and conditions due to external causes (4 sources)Unspecified injury of head, initial encounter; Translations: [UNSPECIFIED INJURY HEAD INITIAL ENC]Onset: 38-23-7169XhoptsetGevjb lower respiratory disease (3 sources)Shortness of breath; Translations: [SHORTNESS OF BREATH]Onset: 26-12-2910GjxcbcshImutx non-traumatic joint disorders (1 source)Osteophyte, right foot; Translations: [OSTEOPHYTE RIGHT FOOT]Onset: 68-64-2498LfhqilmeRbywc non-traumatic joint disorders (1 source)Other specified joint disorders, left ankle and foot; Translations: [OTHER SPEC JOINT D/O LT ANKLE FOOT]Onset: 67-88-6559MaplkaedRerqs nutritional; endocrine; and metabolic disorders (1 source)Overweight; Translations: [Overweight]Onset: 05-82-4112ExwzqacaRiygp nutritional; endocrine; and metabolic disorders (20 sources)Overweight; Translations: [Overweight]Onset: 451545-68-8750 EpisodicOther screening for suspected conditions (not mental disorders or infectious disease) (1 source)Other specified abnormal findings of blood chemistry; Translations: [OTH SPEC ABNORMAL FINDINGS BLDCHEM]Onset: 39-92-7636GfktwihoQkayo skin disorders (1 source)Localized swelling, mass and lump, left lower limb; Translations: [LOC SWELL MASS LUMP LT LOWER LIMB]Onset: 74-12-5938WkrsqbbaIztpnwzxaqtm fracture (20 sources)Pathological fracture due to osteoporosis; Translations: [Other osteoporosis with current pathological fracture, unspecified site, initial encounter for fracture]Onset: 315842-90-8862ZjmiohvjXhaicmjzx; thrombophlebitis and thromboembolism (20 sources)Personal history of other venous thrombosis and embolism; Translations: [Acute embolism and thrombosis of unspecified deep veins of right distal lower extremity]Onset: 920841-04-2621UztehumrCujqdqcdy (except that caused by tuberculosis or sexually transmitted disease) (3 sources)Pneumonia, unspecified organism; Translations: [PNEUMONIA UNSPECIFIED ORGANISM]Onset: 93-62-9329QtigpdogUwbxtbolazr failure; insufficiency; arrest (adult) (1 source)Acute respiratory failure with hypoxia; Translations: [ACUTE RESPIRATORY FAIL W/HYPOXIA]Onset: 75-55-4806CfyjnhheIhdjroolbix injury; contusion (2 sources)Contusion of right hip, initial encounter; Translations: [Contusion of left knee]Onset: 435306-73-5842GnrebfhsFsykn infection (1 source)COVID-19Onset: 07-27-2021 Resolved: 07-27-2021 Results Test NameValueInterpretationReference RangeFacilityFollow-Upon 05-08-2025 Follow-[id number] Monica Acosta 1960 F Date Provider Department Center 05/08/2025 OCTAVIANO LOZOYA MP ORTHO MPORTHO Family History Problem Relation Age of Onset Anesthesia problems Mother Broken bones Mother Osteoporosis Mother Broken bones Father Stroke Father Coronary artery disease Father Family Status - Relation Status Age at Mother Father Level of Service:64478 MT OFFICE/OUTPATIENT ESTABLISHED LOW MDM 20 MIN (GC) Reason for Visit and Comments: Follow-up [153545] Pain [136] Follow-up [530048] Pain [136]NormalFisher-Titus Medical CenterGlucose (Bld) [Mass/Vol] Ordered By: Meenakshi Heck on 06-46-1049Inylmry Blood, YYM676 mg/dLNOIN HealthcareLaboratory - Hematology and Cell countson 09-37-3986UaK1t (Bld) [Mass fraction]7.5 %NOMS HealthcareNo Panel InformationOrdered By: Meenakshi Heck on 62-66-9149EPBF HealthcareALL CBC WITH AUTO DIFFon 99-63-6050MLISYRXNQ ABSOLUTE AUTO0.1NOMS HealthcareBasophils/100 WBC (Bld)0.8 %0.2 - 2.0 %[facility] Eosinophils/100 WBC (Bld)3.4 %0.9 - 7.0 %NOMS HealthcareErythrocyte distribution width (RBC) [Ratio]16.8 %High11.0 - 15.0 %[facility]OMS HealthcareHematocrit (Bld) [Volume fraction]47.2 %36.0 - 48.0 %[facility] HealthcareHemoglobin (Bld) [Mass/Vol] 15.2 g/dL12.0 - 16.0 g/dLNOIN HealthcareIMMATURE GRANULOCYTES ABS AUTO0.04High N[facility] HealthcareImmature granulocytes/100 WBC (Bld)0.4 %0.0 - 0.5 %[facility] HealthcareInterpretation and review of laboratory resultsAbnormalNOMS Healthcare LYMPHOCYTES ABSOLUTE AUTO1.5NOMS HealthcareLymphocytes/100 WBC (Bld)14.5 %Low 20.5 - 60.0 %Christian HospitalMCH (RBC) [Entitic mass]29.4 pg26.7 - 34.0 pgSt. Joseph Medical CenterHC (RBC) [Mass/Vol]32.2 g/dL29.9 - 35.2 g/dLSt. Joseph Medical CenterV (RBC) [Entitic vol]91.3 fL81.0 - 99.0 fLGUNNISON VALLEY HOSPITAL HealthcareMONOCYTES ABSOLUTE AUTO0.6NOMS HealthcareMonocytes/100 WBC (Bld)5.3 %1.7 - 12.0 %[facility] HealthcareNEUTROPHILS ABSOLUTE AUTO7.8HighNOIN HealthcareNeutrophils/100 WBC (Bld)75.6 %High43.0 - 75.0 %[facility] HealthcarePlatelet mean volume (Bld) [Entitic vol]11.7 fL9.5 - 13.5 fLNOMS HealthcareTBH EO #0.4NOMS HealthcareTBH CVP713FTLIBoone Hospital CenterTB RBC5.17 [facility] WBC10.3NOIN HealthcareCLINISYNCNOMS Galion HospitalLon 12-06-2024 Specimen: [id number] Received: 12/07/24 Status: MARLEE Escobar Num: [id number] Spec Type: Surgical Subm Dr: Radha Brannon,WALTER, [place] Tissues: A Bone Fragments - Other than Path Fracture (RIGHT TIBIA) Procedures: ADY, Gross/Micro L3, Decalcification Age/ Patient Sex Location Account Attending Physician Monica Acosta 63/F LABELL [id number] Radha Brannon DPM, MS SPEC NUM: [id number] RECD: 12/07/241351 STATUS: MARLEE ESCOBAR NUM: [id number] GLENROY: 12/06/241329 [facility] DR: Radha Brannon DPM, MS ENTERED: 12/07/24-[address]: Solo,Lab SPEC TYPE: Surgical DEPT: AYAN COLINDRES ENTERED BY: [id number] RECV BY: [id number] ORDERED: HE, Gross/Micro L3, Decalcification ORDERED: HE, Gross/Micro L3, Decalcification Pathological Diagnosis Right tibia, biopsy: Soft tissue and bone with reactive changes. Clinical Information Osteomyelitis and ulcer right anterior lower leg Gross Description Part A is received in formalin labeled with the patients name, date of , and right tibia are lopez-doll, granular bone fragments, 2.8 x 1.4 x 0.8 cm in aggregate. Insulation Board Calender Operator sections are submitted in a single cassette after decalcification in rapid Cali immuno. (1, , OW48-833 A) CPT Codes 06872 Specimen: [id number] Received: 12/07/24 Status: MARLEE Maddison Num: [id number] Spec Type: Surgical Subm Dr: Radha Brannon,W[place]TER, MS Tissues: A Bone Fragments - Other than Path Fracture (RIGHT TIBIA) Procedures: ADY, Gross/Micro L3, Decalcification Patient: Monica Acosta [id number] (Continued) Signed (signature on file) Keyla Lewis MD 12/12/[address] [place] [address] Physician GroupXR Tibia and Fibula - right 2 Viewson [id number] [address] XRay Report Signed Patient: DAVEMONICA MR#: [id number] : 1960 Acct:[id number] Age/Sex: 63 / F ADM Date: 12/06/24 Loc: SURGOUT Attending Dr: Radha Brannon D.P.M. Ordering Physician: Radha Brannon D.P.M. Date of Service: 12/06/24 Procedure(s): XR tibia fibula RT 2V Accession Number(s): [id number] cc: Radha Brannon D.P.M.; Rudolph Hurt M.D. [facility] [place] [address] Patient Name: MONICA ACOSTA MRN: [id number] date: 1960 Sex: F Assigned Patient Location: [facility] Current Patient Location: [facility] Accession/Order Number: [id number] Exam Date: 12/06/2024 14:30 Report Date: 12/06/2024 [...] Solo Hill M.D.12/06/2024 2:32 PM Dictation Location: [place] [address] Electronically authenticated by: [id number] Y Date: 12/06/2024 14:32 Dictated By: Solo Hill D.O. Signed By: 12/06/241434 DD/ 31 TD/TT: Airplane Mechanic Apprentice:LESLIadiologlexy, Radiologist, - 12/06/2024 [place] [address] XRay Report Signed Patient: MONICA ACOSTA MR#: [id number] : 1960 Acct:[id number] Age/Sex: 63 / F ADM Date: 12/06/24 Loc: SURGOUT Attending Dr: Radha Brannon D.P.M. Ordering Physician: Radha Brannon D.P.M. Date of Service: 12/06/24 Procedure(s): XR tibia fibula RT 2V Accession Number(s): [id number] cc: Radha Brannon D.P.M.; Rudolph Hurt M.D. [place] [address] Patient Name: MONICA ACOSTA MRN: [id number] date: 1960 Sex: F [facility] Current [facility] Location: [facility] Accession/Order Number: [id number] Exam Date: 12/06/2024 14:30 Report Date: 12/06/2024 [...] Solo Hill M.D.12/06/2024 2:32 PM Dictation Location[facility] Electronically authenticated by: [id number] Y Date: 12/06/2024 14:32 Dictated By: Solo Hill D.O. Signed By: 12/06/241434 DD/ 31 TD/TT: Airplane Mechanic Apprentice: MCLEAN SOUTHEASTBrian HealthcareRadiology Study observation (narrative)Christian HospitalXR Tibia and Fibula - right 2 ViewsOrdered By: Radiologist Radiology on 55-68-4843KPTKChristian Hospital Work Phone: ct Lower extremity - right WO contraston [phone], [place] [address] CT Scan Report Signed Patient: MONICA ACOSTA MR#: [id number] : 1960 Acct:[id number] Age/Sex: 63 / F ADM Date: 12/05/24 Loc: CT Attending Dr: Radha Brannon D.P.M. Ordering Physician: Radha Brannon D.P.M. Date of Service: 12/05/24 Procedure(s): CT lower leg RT wo con Accession Number(s): [id number] cc: Rudolph Hurt M.D. [address] [id number] Patient Name: MONICA ACOSTA MRN: [id number] date: 1960 Sex: F Assigned Patient Location: CT Current Patient Location: [facility] Accession/Order Number: [id number] Exam Date: 12/05/2024 14:10 Report Date: 12/05/2024 [...] Solo Hill M.D.12/05/2024 2:22 PM Dictation Location: [place] [address] Electronically authenticated by: [id number] Y Date: 12/05/2024 14:22 Dictated By: Solo Hill D.O. Signed By: 12/05/24 1424 DD/ 1422 TD/TT: Airplane Mechanic Apprentice:TBHRadiology, Radiologist, MD - 12/06/2024 [place] [address] CT Scan Report Signed Patient: MONICA ACOSTA MR#: [id number] : 1960 Acct:[id number] Age/Sex: 63 / F ADM Date: 12/05/24 Loc: CT Attending Dr: Radha Brannon D.P.M. Ordering Physician: Radha Brannon D.P.M. Date of Service: 12/05/24 Procedure(s): CT lower leg RT wo con Accession Number(s): [id number] cc: Rudolph Hurt M.D. [facility] [place] [address] Patient Name: MONICA ACOSTA MRN: [id number] date: 1960 Sex: F Assigned Patient Location: CT Current Patient Location: [facility] Accession/Order Number: [id number] Exam Date: 12/05/2024 14:10 Report Date: 12/05/2024 [...] Solo Hill M.D.12/05/2024 2:22 PM Dictation Location: [place] [address] Electronically authenticated by: [id number] Y Date: 12/05/2024 14:22 Dictated By: Solo Hill D.O. Signed By: 12/05/24 1424 DD/ 142 TD/TT: Airplane Mechanic Apprentice: CAYLA HealthcareRadiology Study observation (narrative)[facility] HealthcareCT Lower extremity - right WO contrastOrdered By: Radiologist Radiology on 82-93-1314[facility] Work Phone: ca ECHO DOPPLER COMPLETEon [phone], [place] [address] Cardiology Report Signed Patient: MONICA ACOSTA MR#: [id number] : 1960 Acct:[id number] Age/Sex: 63 / F ADM Date: 12/03/24 Loc: CARD Attending Dr: TY CARTER Ordering Physician: TY CARTER Date of Service: 12/03/24 Procedure(s): CA echo doppler complete Accession Number(s): [id number] cc: TY CARTER; Rudolph Hurt M.D. Patient Name: MONICA ACOSTA MR#: [id number] : 1960 Exam Date: 12/03/2024 Ordering Doctor: [...] CARTER Signed By: 12/03/241951 (more content not included)...TBHRadiology, Radiologist, - 12/03/2024 [place] [address] Cardiology Report Signed Patient: MONICA ACOSTA MR#: [id number] : 1960 Acct:[id number] Age/Sex: 63 / F ADM Date: 12/03/24 Loc: CARD Attending Dr: TY CARTER Ordering Physician: TY CARTER Date of Service: 12/03/24 Procedure(s): CA echo doppler complete Accession Number(s): [id number] cc: TY CARTER; Rudolph Hurt M.D. Patient Name: MONICA ACOSTA MR#: [id number] : 1960 Exam Date: 12/03/2024 Ordering Doctor: [...] CARTER Signed By: 12/03/241951 DD/ 50 TD/TT: Airplane Mechanic Apprentice: CAYLA HealthcareRadiology Study observation (narrative)[facility] ECHO DOPPLER COMPLETEOrdered By: Radiologist Radiology on 27-28-3838GBDJ Healthcare Work Phone: cCF APTTon 89-50-9269lGFW Coag (Bld) [Time]25.1 [facility] HealthcareNo Panel Informationon 38-37-0618HBOYHGQXIOCXP HealthcareOffice Visit on 92-56-2989Jwushz-up [id number] Monica Acosta 1960 F Date Provider Department Center 11/30/2024 TY NATH [facility]ARD [facility] Family History Problem Relation Age of Onset Anesthesia problems Mother Broken bones Mother Osteoporosis Mother Broken bones Father Stroke Father Coronary artery disease Father Family Status - Relation Status Age at Mother Father Level of Service:94827 MT OFFICE/OUTPATIENT NEW MODERATE MDM 45 MINUTESNormal [facility] HospitalRMCOH PROTHROMBIN TIME INR W/O COUMon 76-02-4421OE Coag (PPP) [Time]10.8 [facility] Comment on above:DESIRED INR: 2.0-3.0 CONDITIONS NOT LISTED BELOW 2.5-3.5 FOR PROSTHETIC HEART VALVE REPLACEMENT 2.5-3.5 RECURRENT THROMBOSIS XR OSSEOUS SURVEY LIMITEDon 68-05-4063CT OSSEOUS SURVEY LIMITEDXR OSSEOUS SURVEY LIMITED XR OSSEOUS SURVEY LIMITED Rheumatoid arthritis involving multiple sites, unspecified whether rheumatoid factor present ([facility]) Findings: There is grossly no fracture or [...] by Pavan Ames MD on 11/20/2024 7:53 AMNormalProMedica [facility] CBC AND AUTO DIFFon 57-48-5917WFVMKOGY BASOPHIL0.1 X10E9/LNormal0.0-0.2Pro[facility]ica [facility] HospitalComment on above:Performed By: #### 60885-1, 3016-3 #### [facility] ([id number]) [address], [address] [place], [place] [address]MYQHKDIX NEUTROPHIL5.8 X10E9/LNormal1.5-6.6ProHighland District Hospital HospitalComment on above:Performed By: #### 82096-2, 3015-3 #### [facility] ([id number]) [address], [address] [place], [place] [address]Upwdfbesu/100 WBC (Bld)1.5 %NormalSelect Medical Specialty Hospital - [facility] Comment on above:Performed By: #### 41222-7, 3015-3 #### [facility] ([id number]) [address], [address] [place], [place] [address]Abzquutvkgh (Bld) [#/Vol]0.3 10*3/uLNormal0.0-0.4ProHighland District Hospital HospitalComment on above:Performed By: #### 95397-9, 3015-3 #### [facility] ([id number]) [address], [address] [place], [place] [address]Uhxrginmyxe/100 WBC (Bld)3.6 %NormalSelect Medical Specialty Hospital - [place] Comment on above:Performed By: #### 02421-3, 3015-3 #### [facility] ([id number]) [address], [address] [place], [place] [address]Utzfdfyqakt distribution width (RBC) [Ratio]19.0 %High11.5-15.0 [facility]ibaldi HospitalComment on above:Performed By: #### 13339-0, 3015-3 #### [facility] ([id number]) [address], [address] [place], [place] [address]Qkouwgpbbr (Bld) [Volume fraction]43.6 %Ejwkaq55-45LtzPkewxa [place] HospitalComment on above:Performed By: #### 53765-0, 6-3 #### [facility] ([id number]) [address], [address] [place], [place] [address]Obnkggymqh (Bld) [Mass/Vol]14.6 g/dGUwouzi49.7-15.5PKettering Health Miamisburg HospitalComment on above:Performed By: #### 92094-0, 3016-3 #### [facility] ([id number]) [address], [address] [place], [place] [address]Hgnmzekqlto (Bld) [#/Vol]1.1 10*3/uLNormal1.0-3.5ProMedMercy Health HospitalComment on above:Performed By: #### 94743-0, 6-3 #### [facility] ([id number]) [address], [address] [place], [place] [address]Tdzhbwecoiy/100 WBC (Bld)14.2 %NormalProHighland District Hospital Hospital Comment on above:Performed By: #### 52840-8, 6-3 #### [facility] ([id number]) [address], [address] [place], [place] [address]ZHL (RBC) [Entitic mass]29.8 tjWmqrek76-30FieZhgkaw [facility] HospitalComment on above:Performed By: #### 11320-2, 6-3 #### [facility] ([id number]) [address], [address] [place] [address]UKCG (RBC) [Mass/Vol]33.5 g/nTWzxfwo88-41AbiWgvpeh [facility] HospitalComment on above:Performed By: #### 43589-8, 6-3 #### [facility] ([id number]) [address], [address] [place], [place] [address]WLZ (RBC) [Entitic vol]89 uJZlevha59-062RphPgayqd [place] HospitalComment on above:Performed By: #### 50745-3, 3016-3 #### [facility] ([id number]) [address], [address] [place], [place] [address]Xcvoowpil (Bld) [#/Vol]0.5 10*3/uLNormal0-0.9ProMemorial Health System [facility] Hospitalca [facility]di HospitalComment on above:Performed By: #### 14333-2, 6-3 #### [facility] ([id number]) [address], [address] [place] [address]Larwyxgur/100 WBC (Bld)6.2 %NormalSelect Medical Specialty Hospital - [place] Comment on above:Performed By: #### 41734-5, 6-3 #### [facility] ([id number]) [address], [address] [place] [address]Vmqtcwlcbdj/100 WBC (Bld)74.5 %NormalSelect Medical Specialty Hospital - [place] Comment on above:Performed By: #### 59310-5, 6-3 #### [facility] ([id number]) [address], [address] [place], [place] [address]Tfvslrtk mean volume (Bld) [Entitic vol]9.6 fLNormal7-12 ProMgreil memorial psychiatric hospitala [facility]di HospitalComment on above:Performed By: #### 63461-5, 6-3 #### [facility] ([id number]) [address], [address] [place], [place] [address]Bunmunhjb (Bld) [#/Vol]262 10*3/tGGugvmz299-745YfoPxyvjo [place] HospitalComment on above:Performed By: #### 77100-9, 6-3 #### [facility] ([id number]) [address], [address] [place], [place] [address]QVI COUNT4.89 X10E12/LNormal3.80-5.20ProL[facility] Comment on above:Performed By: #### 71377-3, 6-3 #### [facility] ([id number]) [address], [address] [place], [place] [address]SUN (Bld) [#/Vol]7.8 10*3/uLNormal4.0-11.0ProMedica [facility] HospitalComment on above:Performed By: #### 29352-2, 6-3 #### [facility] ([id number]) [address], [address] [place] [address]FWEIDVGKWXDOF METABOLIC PANELon 93-45-3926Fickrrj [Mass/Vol]4.1 g/dLNormal3.2-5.3ProMedMercy Health HospitalComment on above:Performed By: #### 02538-7, 3016-3, CMP, 1988-01, CBCA, 2132-05, 55982-7, 19385-4, 97247-7 #### [facility] ([id number]) [address], [address] [place] [address]RZG [Catalytic activity/Vol]154 U/SQiyi69-406XnrQpxwcg [place] HospitalComment on above:Performed By: #### 67116-4, 6-3, CMP, 1988-01, CBCA, 2132-05, 21837-8, 60286-0, 32886-4 #### [facility] ([id number]) [address], [address] [place] [address]SOC [Catalytic activity/Vol]19 U/LNormal0-31ProMedMercy Health HospitalComment on above:Performed By: #### 67920-1, 6-3, CMP, 1988-01, CBCA, 2132-05, 17435-8, 02985-8, 07490-5 #### [facility] ([id number]) [address], [address] [place], [place] [address]Pxpec gap [Moles/Vol]12 mmol/LNormal5-15ProMediPark[facility] HospitalComment on above:Performed By: #### 82523-9, 3016-3, CMP, 1988-01, CBCA, 2132-05, 06241-7, 09259-7, 19300-9 #### [facility] ([id number]) [address], [address] [place], [place] [address]RSF [Catalytic activity/Vol]28 U/LNormal0-41ProHigh[facility] Hospital HospitalComment on above:Performed By: #### 52573-8, 3016-3, CMP, 1988-01, CBCA, 2132-05, 57554-3, 01752-9, 70643-6 #### [facility] ([id number]) [address], [address] [place], [place] [address]Wgyouqznu [Mass/Vol]0.4 mg/dLNormal0.3-1.2PKettering Health Miamisburg HospitalComment on above:Performed By: #### 47553-0, 3015-3, CMP, 1988-01, CBCA, 2132-05, 28816-5, 57721-3, 36360-6 #### [facility] ([id number]) [address], [address] [place], [place] [address]Gliqcsy [Mass/Vol]10.1 mg/dLNormal8.5-10.5PKettering Health Miamisburg HospitalComment on above:Performed By: #### 02428-2, 6-3, CMP, 1988-01, CBCA, 2132-05, 87492-6, 07254-5, 95476-6 #### [facility] ([id number]) [address], [address] [place], [place] [address]Nudfkbho [Moles/Vol]99 mmol/UHzsatm83-653YaoOukhrf [place] HospitalComment on above:Performed By: #### 09066-4, 3016-3, CMP, 1988-01, CBCA, 2132-05, 14944-0, 79604-4, 65906-3 #### [facility] ([id number]) [address], [address] [place], [place] [address]WA6 [Moles/Vol]24 mmol/FCghelu26-28UqvCnryes [facility] Comment on above:Performed By: #### 79527-4, 3016-3, CMP, 1988-01, CBCA, 2132-05, 81596-5, 88739-1, 38802-9 #### [facility] ([id number]) [address], [address] [place], [place] [address]Rsihfkeomp [Mass/Vol]1.24 mg/dLHigh0.40-1.00ProLancaster Municipal HospitalComment on above:Result Comment: METHOD TRACEABLE TO IDMS STANDARD Performed By: #### 21602-0, 3015-3, CMP, 1988-01, CBCA, 2132-05, 75020-4, 45399-2, 12610-8 #### [facility] ([id number]) [address] [place], [place] [address]RRC/1.73 sq M.predicted among non-blacks MDRD (S/P/Bld) [Vol rate/Area]49 mL/min/{1.73_m2}Low>59ProLancaster Municipal HospitalComment on above: Result Comment: Reported eGFR is based on the CKD-EPI 2020 equation that does not use a race coefficient.Performed By: #### 72528-7, 3015-3, CMP, 1988-01, CBCA, 2132-05, 49769-3, 95509-5, 65213-2 #### [facility] ([id number]) [address] [place], [place] [address]Jbxxvpc [Mass/Vol]189 mg/fZUkjz33-63IhwXdqlfjLancaster Municipal Hospital Comment on above:Performed By: #### 07005-8, 6-3, CMP, 1988-01, CBCA, 2132-05, 58623-0, 00513-3, 55720-7 #### [facility] ([id number]) [address] [place], [place] [address]Igtoabqdl [Moles/Vol]5.0 mmol/LNormal3.5-5.0ProLancaster Municipal HospitalComment on above:Performed By: #### 63891-1, 3016-3, CMP, 1988-01, CBCA, 2132-05, 31028-6, 61926-2, 25077-9 #### [facility] ([id number]) [address] [place] [address]Yyhxydh [Mass/Vol]7.9 g/dLNormal6.0-8.0ProHigh[facility] Hospital Hospital Comment on above:Performed By: #### 40641-4, 3015-3, CMP, 1988-01, CBCA, 2132-05, 09573-6, 45127-1, 33840-9 #### [facility] ([id number]) [address] [facility], [address] [place] [address]Uibdiy [Moles/Vol]135 mmol/RYyjypr884-506VjuXgihqt [place] HospitalComment on above:Performed By: #### 57030-2, 3015-3, CMP, 1988-01, CBCA, 2132-05, 66609-9, 81095-7, 28143-6 #### [facility] ([id number]) [address] [facility] [place] [address]Llkg nitrogen [Mass/Vol]25 mg/dLNormal5-27Pro[facility] HospitalComment on above:Performed By: #### 73163-9, 3015-3, CMP, 1988-01, CBCA, 2132-05, 45536-5, 30593-1, 59123-8 #### [facility] ([id number]) [address] [place], [place] [address]AHG [Mass/Vol]on 11-19-2024 REACTIVE PROTEIN0.5 mg/dLNormal 0.000-0.744ProMedica [facility]di HospitalComment on above:Performed By: #### 49367-1, 6-3 #### [facility] ([id number]) [address] [facility] [place], [place] [address]RZE Photometric method (Bld) [Velocity]on 84-32-2002NYA, ERYTHROCYTE SEDIMENTATION RATE29 mm/hNormal0-30ProLancaster Municipal HospitalComment on above:Performed By: #### 15848-5, 3016-3 #### [facility] ([id number]) [address] [place] [address], [address] [place] [address]Wykzgquerk factor Nephelometry Qn (S)on 06-39-9476PJXDHILYKS RQFBNH86 IU/mLHigh<20ProLancaster Municipal HospitalComment on above:Performed By: #### 83706-1, 3016-3, CMP, 1988-01, CBCA, 2132-05, 92833-7, 90832-7, 80485-7 #### [facility] ([id number]) [address] [place] [address], [address] [place], [place] [address]BFW Qnon 22-41-5946WTB7.01 uIU/mLNormal0.49-4.67ProLancaster Municipal HospitalComment on above:Performed By: #### 56748-3, 3016-3, CMP, 1988-01, CBCA, 2132-05, 65392-7, 12323-8, 61022-3 #### [facility] ([id number]) [address] [place] [address], [address] [place], [place] [address]QMWZTUS B12on 71-22-8929Qeasioazq (Vitamin B12) [Mass/Vol]279 pg/rWTjctee894-535AvwLzjxau [facility] HospitalComment on above:Performed By: #### 42322-5, 3016-3 #### [facility] ([id number]) [address] [place] [address], [address] [place], [place] [address]Vqzygod D+Metabolites [Mass/Vol]on 72-18-2272WKFIJJT D 25 HYD TOT55.1 ng/oNLfuwfv39-892TzgRshohi [place] HospitalComment on above:Result Comment: Vitamin D status 25 [place] Vitamin D Deficiency <20 ng/mL Insufficiency 20-29 ng/mL Sufficiency 30-100 ng/mL Toxicity >100 ng/mL NOTE: A pediatric reference range has not been established by the engraver hand soft metals of this kit. The [place] [employer] recommends a Vitamin D level of = or >20ng/mL in infants and children.Performed By: #### 53516-6, 3016-3 #### [facility] ([id number]) [address] [facility], [address] [place], [place] [address]TV CHEST 2 VWSon 79-62-7750SK CHEST 2 VWSXR CHEST 2 VWS EXAM: XR CHEST 2 VWS CLINICAL INFORMATION: Rheumatoid arthritis involving multiple sites, unspecified whether rheumatoidfactor present ([facility]). COMPARISON: None. FINDINGS: There are low lung [...] by Fernando Brenner MD on 11/19/2024 6:46 PMNormalProMemorial Health System Selby General Hospitalca [facility] Follow-Upon 75-61-2742Ciyxjk-[id number] Xiomara Acostara 1960 F Date Provider Department Center 10/15/2024 OCTAVIANO LOZOYA MP ORTHO MPORTHO Family History Problem Relation Age of Onset Anesthesia problems Mother Broken bones Mother Osteoporosis Mother Broken bones Father Family Status - Relation Status Age at Mother Father Level of Service:87381 MT OFFICE/OUTPATIENT ESTABLISHED LOW MDM 20 MIN (GC) Reason for Visit and Comments: Follow-up [913764] Pain [136] Follow-up [194288] Pain [136]NormalUnDoctors HospitalGlucose (Bld) [Mass/Vol] Ordered By: Meenakshi Heck on 47-80-8328Dolwvjv Blood, YVZ039 mg/dLNOMS HealthcareLaboratory - Hematology and Cell countson 97-48-5438HjE0o (Bld) [Mass fraction]7.5 %[facility] HealthcareNo Panel InformationOrdered By: Meenakshi Umang on 70-37-7236VRUU HealthcareFollow-Upon 28-01-9788Kagnuu-[id number] Monica Acosta 1960 Date Provider Department Center 08/13/2024 OCTAVIANO LOZOYA MP ORTHO MPORTDAKOTA Family History Problem Relation Age of Onset Anesthesia problems Mother Broken bones Mother Osteoporosis Mother Broken bones Father Family Status - Relation Status Age at Mother Father Level of Service:86722 MT OFFICE/OUTPATIENT ESTABLISHED LOW MDM 20 MIN (GC) Reason for Visit and Comments: Follow-up [888955] Pain [136] Follow-up [031032] Pain [136][facility] North[facility] Visiton 07-09-2024 Follow-up [id number] Monica Acosta 1960 Date Provider Department Center 07/09/2024 OCTAVIANO LOZOYA MP MPORTHO Family History Problem Relation Age of Onset Anesthesia problems Mother Broken bones Mother Osteoporosis Mother Broken bones Father Family Status - Relation Status Age at Mother Father Level of Service:41512 MT POSTOP FOLLOW UP VISIT RELATED TO ORIGINAL PX (GC) Reason for Visit and Comments: Post-op [483] Post-op [483][facility] NorthOffice Visit on 32-03-3309Rbmjeb-up [id number] Monica Acosta 1960 Date Provider Department Center 06/11/2024 OCTAVIANO LOZOYA MP ORTHO MPORTHO Family History Problem Relation Age of Onset Anesthesia problems Mother Broken bones Mother Osteoporosis Mother Broken bones Father Family Status - Relation Status Age at Mother Father Level of Service:96702 MT POSTOP FOLLOW UP VISIT RELATED TO ORIGINAL PX (GC) Reason for Visit and Comments: Post-op [483] Pain [136] Post-op [483] Pain [136][facility]36on 67-59-049888Gcxhz like patient told Dr Shipman was already taking these medications. Dr shipman did not prescribe patient anything. She will need to contact pcp office. [place] [address]Kristen from [place] called for clarification on calcium and vit D3 order from , [place] does not currently have an order for calcium and vit D3 for patient, please fax clarification to Fax:[phone] Health Urbana HospitalOffice Visiton 09-37-7838Kmesao-up [id number] Monica Acosta 1960 F Date Provider Department Center 05/14/2024 OCTAVIANO LOZOYA MP ORTHO MPORTHO Family History Problem Relation Age of Onset Anesthesia problems Mother Broken bones Mother Osteoporosis Mother Broken bones Father Family Status - Relation Status Age at Mother Father Level of Service:26893 MT POSTOP FOLLOW UP VISIT RELATED TO ORIGINAL PX Reason for Visit and Comments: Post-op [483] Pain [136] Post-op [483] Pain [136]NormalUnDoctors HospitalBASIC METABOLIC PANLon 67-08-1348Idiaz gap [Moles/Vol]10 mmol/LNormal5-15[facility] Comment on above:Performed By: #### BMP #### [facility] ([id number]) [address], [address] [place], [place] [address]Xvcrrrq [Mass/Vol]9.9 mg/dLNormal8.5-10.5PUniversity Hospitals TriPoint Medical CenterComment on above:Performed By: #### BMP #### [facility] ([id number]) [address], [address] [place], [place] [address]Ttonfdfe [Moles/Vol]100 mmol/ZBxbhwu94-704OdiTnlngx [place] HospitalComment on above:Performed By: #### BMP #### [facility] ([id number]) [address], [address] [place], [place] [address]TT5 [Moles/Vol]27 mmol/XBovwpb32-35XmvPrcrelUniversity Hospitals TriPoint Medical Center Comment on above:Performed By: #### BMP #### [facility] ([id number]) [address], [address] [place], [place] [address]Hhwovyyhdm [Mass/Vol]0.92 mg/dLNormal0.40-1.00ProHigh[facility] Hospital HospitalComment on above:Result Comment: METHOD TRACEABLE TO IDMS STANDARD Performed By: #### BMP #### [facility] ([id number]) [address], [address] [place], [place] [address]NVM/1.73 sq M.predicted among non-blacks MDRD (S/P/Bld) [Vol rate/Area]70 mL/min/{1.73_m2}Normal>59ProHighland District Hospital HospitalComment on above: Result Comment: Reported eGFR is based on the CKD-EPI 2020 equation that does not use a race coefficient.Performed By: #### BMP #### [facility] ([id number]) [address], [address] [place], [place] [address]Enwkzfk [Mass/Vol]151 mg/eIUpye60-12UekGggkzy [facility] Comment on above:Performed By: #### BMP #### [facility] ([id number]) [address] [place], [place] [address]Xjlxhtqhb [Moles/Vol]4.5 mmol/LNormal3.5-5.0ProHigh[facility] HospitalComment on above:Performed By: #### BMP #### [facility] ([id number]) [address] [place], [place] [address]Sgsugk [Moles/Vol]137 mmol/BYscrdt373-920RiqSeyotu [place] HospitalComment on above:Performed By: #### BMP #### [facility] ([id number]) [address], [address] [place], [place] [address]Qksy nitrogen [Mass/Vol]28 mg/dLHigh5-27Pro[facility] HospitalComment on above:Performed By: #### BMP #### [facility] ([id number]) [address] [place], [place] [address]ACQQ SCREEN, URINEon 83-04-7101AMHZTTKETAJ/METHAMPNegativeNormal NEGProMedica Garibaldi HospitalComment on above:Result Comment: AMPH/METH screening cut off = 1000 ng/mLPerformed By: #### ADYFINESSEDRAGAN #### [facility] ([id number]) [address], [address] [place], [place] [address]PEOFAFNRMDIEDhuwjxzzPstjhxDVSMsgVrerke [facility] HospitalComment on above:Result Comment: Barbiturates screening cut off value = 200 ng/mLPerformed By: #### ADYFINESSEDRAGAN #### [facility] ([id number]) [address], [address] [place], [place] [address]JGJXFXPIJNZDKZCKqurvsggRgvwpzKXRAqcCflbeu [facility] HospitalComment on above:Result Comment: Benzodiazepines screening cut off value = 200 ng/mL Performed By: #### ADY FINESSEDRAGAN #### [facility] ([id number]) [address] [place], [place] [address]ADCRUJPJSBOMZvklanepDtpcbiPKSItaZmlnjj [facility]di HospitalComment on above:Result Comment: Cannabinoids/THC screening cut off value = 50 ng/mL Performed By: #### ADY FINESSEDRAGAN #### [facility] ([id number]) [address] [place], [place] [address]MLMTNRA METABOLITENegativeNormalNEGProMemorial Health System [facility] Hospitalca [facility] Comment on above:Result Comment: Cocaine screening cut off value = 300 ng/mL Performed By: #### ADY FINESSEDRAGAN #### [facility] ([id number]) [address], [address] [place], [place] [address]PHPOBMTVapytlkhYpghhcSOYSxtGpkklc [facility] HospitalComment on above:Result Comment: Ecstasy screening cut off value = 500 ng/mL This report is intended for use in clinical monitoring or management of patients.Performed By: #### SELENA GARSIA #### [facility] ([id number]) [address] [place], [place] [address]JQNSOVPMZPvpqaofnQtdqgxEUTRpeYbxunk [place] HospitalComment on above:Result Comment: Methadone screening cut off value = 300 ng/mL.Performed By: #### SELENA GARSIA #### [facility] ([id number]) [address] [place], [place] [address]NWXSOCJXqpypvbbNvnqgbPMUEjpLcdvcr [facility] HospitalComment on above:Result Comment: Opiates screening cut off value = 300 ng/mL NOTE: This test is used for the detection of codeine, hydrocodone (>1000 ng/mL), morphine and hydromorphone (>900 ng/mL) in urine.Performed By: #### SELENA GARSIA #### [facility] ([id number]) [address] [facility], [address] [place] [id number]EJPpeTdaebc [facility] HospitalComment on above:Result Comment: Oxycodone screening cut off value = 300 ng/mL NOTE: This test is used for the detection of oxycodone and oxymorphone in urine.Performed By: #### SELENA GARSIA #### [facility] ([id number]) [address] [facility], [address] [place] [id number]nxqRCTBjnQfwxjf [facility] HospitalComment on above:Result Comment: Phencyclidine screening cut off value = 25 ng/mL Performed By: #### SELENA GARSIA #### [facility] ([id number]) [address] [facility], [address] [place], [place] [address]XWMEBSIZLMRY - ALBUMIN:CREATININE URINE RATIOon 03-27-2024 ALB/CREAT RATIO37.7 mg/g creatHigh0.0-30.0[facility] - ColumbusComment on above:Performed By: #### SELENA GARSIA #### [facility] ([id number]) [address] [facility], [address] [place], [place] [address]Nujlisl DL <= 20 mg/L (U) [Mass/Vol]2.0 mg/dLHigh0.0-1.9 [facility] HospitalComment on above:Performed By: #### MABELUSELENA #### [facility] ([id number]) [address], [address] [place], [place] [address]REIUV CREAT53.06 mg/dLNormalProMedica Garibaldi HospitalComment on above:Performed By: #### SELENA GARSIA #### [facility] ([id number]) [address] [place], [place] [address]PAXRXPUM BLOOD COUNTon 19-19-2683Vjvyynurhks distribution width (RBC) [Ratio]14.4 %Rfkqgf66.5-15.0Pro[facility] Hospitalca Garibaldi HospitalComment on above: Performed By: #### CBC, CMP #### [facility] ([id number]) [address], [address] [place], [place] [address]Wuhiwuxlfa (Bld) [Volume fraction]40.1 %Eufhrs49-47GndBughcn Garibaldi HospitalComment on above:Performed By: #### CBC, CMP #### [facility] ([id number]) [address], [address] [place], [place] [address]Ytqhvbgpkp (Bld) [Mass/Vol]13.5 g/gNIbkqct87.7-15.5[facility] HospitalComment on above:Performed By: #### CBC, CMP #### [facility] ([id number]) [address], [address] [place], [place] [address]WYC (RBC) [Entitic mass]30.8 ahCspitq30-28AegGcvdst Garibaldi HospitalComment on above:Performed By: #### CBC, CMP #### [facility] ([id number]) [address], [address] [place], [place] [address]TDHO (RBC) [Mass/Vol]33.7 g/aERzioeb22-35ScqHhlbfq [place] HospitalComment on above:Performed By: #### CBC, CMP #### [facility] ([id number]) [address], [address] [place], [place] [address]FMS (RBC) [Entitic vol]91 wZIdzxsm54-350TpxFegfza [place] HospitalComment on above:Performed By: #### CBC, CMP #### [facility] ([id number]) [address], [address] [place], [place] [address]Fpuloxnu mean volume (Bld) [Entitic vol]9.8 fLNormal7-12 [facility] HospitalComment on above:Performed By: #### CBC, CMP #### [facility] ([id number]) [address], [address] [place], [place] [address]Gulbnfkey (Bld) [#/Vol]308 10*3/aNKkzdic158-258RxsJuajcm [place] HospitalComment on above:Performed By: #### CBC, CMP #### [facility] ([id number]) [address], [address] [place], [place] [address]OTG COUNT4.39 X10E12/LNormal3.80-5.20[facility]ca [facility] Comment on above:Performed By: #### CBC, CMP #### [facility] ([id number]) [address], [address] [place], [place] [address]ERN (Bld) [#/Vol]10.1 10*3/uLNormal4.0-11.0Pro[facility] Hospitalca [place] HospitalComment on above:Performed By: #### CBC, CMP #### [facility] ([id number]) [address], [address] [place], [place] [address]XGABQYIHADGEX METABOLIC PANELon 87-01-1542Hhttsdp [Mass/Vol]3.8 g/dLNormal3.2-5.3[facility] HospitalComment on above:Performed By: #### CBC, CMP #### [facility] ([id number]) [address], [address] [place], [place] [address]DMQ [Catalytic activity/Vol]133 U/DOpfp30-746MhbFalhqz [place] HospitalComment on above:Performed By: #### CBC, CMP #### [facility] ([id number]) [address], [address] [place], [place] [address]HEN [Catalytic activity/Vol]22 U/LNormal0-31[facility] HospitalComment on above:Performed By: #### CBC, CMP #### [facility] ([id number]) [address], [address] [place], [place] [address]Ccvbn gap [Moles/Vol]7 mmol/LNormal5-15[facility] Comment on above:Performed By: #### CBC, CMP #### [facility] ([id number]) [address], [address] [place], [place] [address]KEK [Catalytic activity/Vol]24 U/LNormal0-41[facility] HospitalComment on above:Performed By: #### CBC, CMP #### [facility] ([id number]) [address], [address] [place], [place] [address]Piogfbpzt [Mass/Vol]0.4 mg/dLNormal0.3-1.2[facility] HospitalComment on above:Performed By: #### CBC, CMP #### [facility] ([id number]) [address], [address] [place], [place] [address]Mfojcah [Mass/Vol]9.6 mg/dLNormal8.5-10.5[facility] HospitalComment on above:Performed By: #### CBC, CMP #### [facility] ([id number]) [address], [address] [place], [place] [address]Slmzosqm [Moles/Vol]102 mmol/NWnwjxu69-628QgrBqaiqz [place] HospitalComment on above:Performed By: #### CBC, CMP #### [facility] ([id number]) [address], [address] [place], [place] [address]JT2 [Moles/Vol]28 mmol/STklotz01-95XevFozpkzUniversity Hospitals [facility] Comment on above:Performed By: #### CBC, CMP #### [facility] ([id number]) [address], [address] [place], [place] [address]Wkcfbxlbdq [Mass/Vol]0.96 mg/dLNormal0.40-1.00ProLancaster Municipal HospitalComment on above:Result Comment: METHOD TRACEABLE TO IDMS STANDARD Performed By: #### MIKAEL, CMP #### [facility] ([id number]) [address] [place], [place] [address]BCB/1.73 sq M.predicted among non-blacks MDRD (S/P/Bld) [Vol rate/Area]66 mL/min/{1.73_m2}Normal>59ProLancaster Municipal HospitalComment on above: Result Comment: Reported eGFR is based on the CKD-EPI 2020 equation that does not use a race coefficient.Performed By: #### MIKAEL, CMP #### [facility] ([id number]) [address] [place], [place] [address]Ifoivkq [Mass/Vol]179 mg/xOBmdw06-92OqvVbicvhSelect Medical Specialty [facility] Comment on above:Performed By: #### CBC, CMP #### [facility] ([id number]) [address] [address] [place], [place] [address]Oyngeqrgb [Moles/Vol]5.1 mmol/LHigh3.5-5.0ProLancaster Municipal HospitalComment on above:Performed By: #### CBC, CMP #### [facility] ([id number]) [address], [address] [place], [place] [address]Fnsxntj [Mass/Vol]7.2 g/dLNormal6.0-8.0Pro[facility] Hospitalca [facility] Comment on above:Performed By: #### CBC, CMP #### [facility] ([id number]) [address], [address] [place] [address]Ztifdb [Moles/Vol]137 mmol/XNqvlyg087-381XeePysdpg [place] HospitalComment on above:Performed By: #### CBC, CMP #### [facility] ([id number]) [address] [place] [address]Rqjv nitrogen [Mass/Vol]23 mg/dLNormal5-27ProLancaster Municipal HospitalComment on above:Performed By: #### CBC, CMP #### [facility] ([id number]) [address], [address] [address]Cpklf 1996 panelon 91-53-5254Xqbuiufqmoj [Mass/Vol]106 mg/dLLow 150 - 200 mg/dLSuburban Community Hospital & Brentwood HospitalCholesterol in HDL [Mass/Vol]46 mg/dL39 - PINF mg/dLSuburban Community Hospital & Brentwood HospitalComment on above: HDL <40 mg/dL - High Risk HDL > or = 40mg/dL- Desirable HDL >60 mg/dL - Negative Risk Cholesterol in LDL [Mass/Vol]38 mg/dLNINF - 130 mg/dLSuburban Community Hospital & [facility] Comment on above: LDL <100 mg/dL - Desirable LDL >160 mg/dL - High Risk Cholesterol in VLDL [Mass/Vol]22 mg/dL0 - 30 mg/dLSuburban Community Hospital & [facility] Cholesterol.total/Cholesterol in HDL [Mass ratio]2.3 {ratio}1.0 - 5.0[facility] & Brent[facility] HospitalInterpretation and review of laboratory resultsAbnormalSuburban Community Hospital & Brentwood HospitalTriglyceride [Mass/Vol]110 mg/dL27 - 150 mg/dLProMediJewish Maternity HospitalProWood County Hospital SystemCholesterol [Mass/Vol]106 mg/hJNgk575-937GisHmoefaLancaster Municipal HospitalComment on above:Performed By: #### 24424-5, 3016-3 #### [facility] ([id number]) [address], [address] [place], [place] [address]Uvfvwqykgzp in HDL [Mass/Vol]46 mg/dLNormal>39ProHigh[facility] District Hospital HospitalComment on above:Result Comment: HDL <40 mg/dL - High Risk HDL > or = 40mg/dL- Desirable HDL >60 mg/dL - Negative Risk Performed By: #### 08831-9, 3015-3 #### [facility] ([id number]) [address], [address] [place], [place] [address]Bhsmkvnmzai in LDL [Mass/Vol]38 mg/dLNormal<130ProLancaster Municipal HospitalComment on above:Result Comment: LDL <100 mg/dL - Desirable LDL >160 mg/dL - High Risk Performed By: #### 38906-9, 6-3 #### [facility] ([id number]) [address], [address] [place], [place] [address]Irjlixutnti in VLDL [Mass/Vol]22 mg/dLNormal0-30ProLancaster Municipal HospitalComment on above:Performed By: #### 97781-8, 6-3 #### [facility] ([id number]) [address], [address] [place], [place] [address]UVZKZYFOUKM:HDL2.3Ogzscl0.0-5.0ProHighland District Hospital HospitalComment on above:Performed By: #### 38659-8, 3016-3 #### [facility] ([id number]) [address] [place] [address], [address] [place], [place] [address]Tgkmvwdkeevc [Mass/Vol]110 mg/oKZaokst48-063YjpAefexs [place] HospitalComment on above:Performed By: #### 05124-4, 3016-3 #### [facility] ([id number]) [address] [place] [address], [address] [place], [place] [address]VZWvl 96-26-4618NQT Qn3.00 m[IU]/LProMedOhioHealth Mansfield Hospital SystemTSH Qn on 04-00-4197XjkNronjt Health SystemTSH3.00 uIU/mLNormal0.49-4.67ProHigh[facility] District Hospital HospitalComment on above:Performed By: #### 44669-8, 3016-3 #### [facility] ([id number]) [address] [place] [address], [address] [place], [place] [address]DNFHG OF CARE GLUCOSEon 73-10-5772Yicuyga [Mass/Vol]252 mg/dL Critically nnqm12-291Txh [facility] CenterComment on above:Performed By: #### POCGLUC ####[facility] [address] [address]Dr. Abiel ClementPROF CHEM 8 (BAS METB)on 92-70-2258Wojce gap [Moles/Vol]11.5 mmol/LNormalThe [facility] CenterComment on above:Performed By: #### BMP ####[facility] [address] [address]Dr. Abiel ChangCalcium [Mass/Vol]9.6 mg/dLNormal8.5-10.1The [facility] CenterComment on above:Performed By: #### BMP ####[facility] [address] [address]Dr.Suyapalan ChangChloride [Moles/Vol]102 mmol/LNormal 98-107The [facility] on above:Performed By: #### BMP ####[facility] Cnbdzoyhnp[address] [place], [place] [address]Dr.Abiel ChangCO2 [Moles/Vol]30.8 mmol/RQxzsjh60.0-32.0The [facility] CenterComment on above: Performed By: #### BMP ####[facility] Dvhmzqexay[address] [place], [place] [address]Dr.Abiel ChangCreatinine [Mass/Vol]0.72 mg/dLNormal 0.55-1.02The [facility] CenterCominsight surgical hospital on above:Performed By: #### BMP ####[facility] Iujrfojmtw[address] [place], [place] [address]Dr. Yilan ChangEGFR-AF MARSHALLESE>60Normal>=60The [facility] on above: Performed By: #### BMP ####[facility] Hyulhetkno97[address] [place], [place] [address]Dr.Yilan ChangEGFR-NON AF MARSHALLESE>60Normal>=60The [facility] on above:Performed By: #### BMP ####[facility] Nxunebrpvi911[address] [place], [place] [address]Dr.Abiel ChangGlucose [Mass/Vol]127 mg/dLCritically kxyo99-027Hju [facility] on above: Performed By: #### BMP ####[facility] Wobslrqtrr22[address] [place], [place] [address]Dr.Abiel ChangPotassium [Moles/Vol]4.3 mmol/LNormal 3.5-5.1The [facility] CenterCominsight surgical hospital on above:Performed By: #### BMP ####[facility] Vskentrksw48[address] [place], [place] [address]Dr.Abiel Clement Sodium [Moles/Vol]140 mmol/IIbhvku062-796Gqe [facility] CenterCominsight surgical hospital on above: Performed By: #### BMP ####[facility] Ivhypxaync425[address] [place], [place] [address]Dr.Abiel ChangUrea nitrogen [Mass/Vol]17.0 mg/dLNormal 7.0-18.0The [facility] CenterComment on above:Performed By: #### BMP ####[facility] Pcfunhwbsc54[address] [place], [place] [address]Dr. Abiel ChangUrea nitrogen/Creatinine [Mass ratio]23.6 mg/mgGreen Cross HospitalCominsight surgical hospital on above:Performed By: #### BMP ####[facility] Dtivczjltx[address] [place], [place] [address]Dr.Suyapaviviana ClementCULTURE URINEon 34-41-2116UVRDWPH URINEGreen Cross HospitalComment on above:Performed By: #### URCX ####[facility] Hsjuwpvfwb200[address] [place], [place] [address]Dr. Suyapaviviana UrbanoCBC W MANUAL DIFFon 90-35-4544HJMMWMXZXKNADKSGUDLdkizfAfh [facility] HospitalCominsight surgical hospital on above:Performed By: #### CBCMAN ####[facility] Sigpjpngef36[address] [place], [place] [address]Dr. Yilan Clement ATYPICAL LYMPH #NormalEast Liverpool City HospitalCominsight surgical hospital on above:Performed By: #### CBCMAN ####[facility] Qayotlvhuq77[address] [place], [place] [address]Dr. Yilan ChangATYPICAL LYMPH %NormalEast Liverpool City HospitalCominsight surgical hospital on above: Performed By: #### CBCMAN ####[facility] Xspjmdepvr717[address] [place], [place] [address]Dr. Yilan ChangBAND #0.6 103/ulCritically high0.0-0.3 The [facility] CenterCominsight surgical hospital on above:Performed By: #### CBCMAN ####[facility] Sufdikgntu38[address] [place], [place] [address]Dr. Yilan ChangBAND %3 %Normal0-5The [facility] CenterComment on above:Performed By: #### CBCMAN ####[facility] Tvztqqvoln9[address] [place], [place] [address]Dr. Suyapalan ChangBASOM #0.00 103/ulNormal0.00-0.10The [facility] CenterCominsight surgical hospital on above:Performed By: #### CBCMAN ####[facility] [address] [address]Dr. Yilan ChangBASOM %0.0 %Critically low0.2-2.0The [facility] HospitalComment on above:Performed By: #### CBCMAN ####[facility] Wdzeiarkgt7[address] [place], [place] [address]Dr. Yilan ChangBLAST #NormalThe [facility] HospitalComment on above:Performed By: #### CBCMAN ####[facility] Xynkctlmry589[address] [place], [place] [address]Dr. Yilan ChangBLAST %NormalThe [facility] HospitalComment on above:Performed By: #### CBCMAN ####[facility] Uatvjcunda957[address] [place], [place] [address]Dr. Yilan ChangCORRECTED WBCNormal4.0-11.0The [facility] CenterComment on above:Performed By: #### CBCMAN ####[facility] Ovuurhlrfs103[address] [place], [place] [address]Dr. Yilan ChangEOS #0.00 103/ulNormal0.00-0.70The [facility] CenterComment on above:Performed By: #### CBCMAN ####[facility] Rvnnkqyeyj[address] [place], [place] [address]Dr. Yilan ChangEOS% 0.0 %Critically low0.9-7.0The [facility] CenterComment on above:Performed By: #### CBCMAN ####[facility] Rmgsiclmef69[address] [place], [place] [address]Dr. Yilan ZetfmPHF47.0 %Critically low36.0-48.0The [facility] HospitalComment on above:Performed By: #### CBCMAN ####[facility] Yrgfmkmtps69[address] [place], [place] [address]Dr. Yilan QhiqyYEM80.8 g/dlCritically low 12.0-16.0The [facility] CenterComment on above:Performed By: #### CBCMAN ####[facility] Tgdltgfwta[address] [place], [place] [address]Dr. Yilan ChangLYMPHM #0.61 103/ulCritically low1.20-3.80The [facility] Comment on above:Performed By: #### CBCALLY ####[facility] [address] [place] [address]Dr. Yiviviana ClementLYMPHM%3.0 %Critically low 20.5-60.0The [facility] CenterComment on above:Performed By: #### CBCALLY ####[facility] [address] [address]Dr. Yiviviana ClementXzpgzLXF21.3 ukGhbtbp89.7-34.0The [facility] CenterComment on above: Performed By: #### CBCALLY ####[facility] [address]rfbzas[address] [address]Dr. Yilan RradzTWCM63.8 g/lbLcqtxg81.9-35.2The [facility] CenterComment on above:Performed By: #### CBCALLY ####[facility] Xomrftlxrf225[address] [place], [place] [address]Dr. Yilan UrbanoMCV 85.9 wICtiwsi49.0-99.0The [facility] CenterComment on above:Performed By: #### CBCALLY ####[facility] Xpvfqujkkw0836[address] [place], [place] [address]Dr. Yilan ChangMETAMYELOCYTE #NormalThe St. Vincent Hospitalment on above: Performed By: #### CBCALLY ####[facility] Ofdlsqrszp1830[address] [place], [place] [address]Dr. Yilan ChangMETAMYELOCYTE %NormalThe [facility] CenterComment on above:Performed By: #### CBCALLY ####[facility] [address] [address]Dr. Yilan ChangMONOM#1.01 103/ulCritically high0.30-0.80The [facility] CenterComment on above:Performed By: #### CBCALLY ####[facility] Eadujsygwp475[address] [place], [place] [address]Dr. Yilan ChangMONOM%5.0 %Normal1.7-12.0The [facility] CenterComment on above:Performed By: #### CBCALLY ####[facility] [address]vxh[address] [address]Dr. Abiel ClementMPV11.1 fLNormal9.5-13.5The [facility] CenterComment on above:Performed By: #### CBCMAN ####[facility] [address] [address]Dr. Abiel Clement MYELOCYTE #NormalMercy Health Willard Hospital HospitalComment on above:Performed By: #### CBCMAN ####[facility] Ucamnoihfa[address] [place], [place] [address]Dr. Abiel ChangMYELOCYTE %NormalThe [facility] HospitalComment on above:Performed By: #### CBCMAN ####[facility] Rhyvrdcxiy555[address] [place], [place] [address]Dr. Abiel ChangNRBCNormalThe [facility] CenterComment on above:Performed By: #### CBCALLY ####[facility] Pffuiptxor87[address] [place], [place] [address]Dr. Abiel ZeyzeCON993 103/yxBrxwen198-532Wlr [facility] CenterComment on above:Performed By: #### CBCMAN ####[facility] Zxffthnmpr834[address] [place], [place] [address]Dr. Abiel ChangRBC3.96 106/ulCritically low 4.20-5.40East [facility] City HospitalComment on above:Performed By: #### CBCMAN ####[facility] Crgcwoazbu455[address] [place], [place] [address]Dr. Abiel ClementRDW15.4 %Critically high11.0-15.0[facility] HospitalComment on above:Performed By: #### CBCMAN ####[facility] Xhdvpkumfe685[address] [place], [place] [address]Dr. Abiel ClementSEG #18.07 103/ulCritically high 1.40-6.50The [facility] CenterComment on above:Performed By: #### CBCMAN ####[facility] Hhxbabgjky144[address] [place], [place] [address]Dr. Abiel ChangSEG %89.0 %Critically high43.0-75.0The [facility] HospitalComment on above:Performed By: #### CBCMAN ####[facility] [address]rifkx[address] [address]Dr. Suyapaviviana LbfypVLZ15.3 103/ulCritically high4.0-11.0 The [facility] CenterComment on above:Performed By: #### CBCMAN ####[facility] [address]vusbf[address] [address]Dr. Abiel Clement LACTATE/LACTIC ACIDon 25-95-1473Znynqzm [Moles/Vol]2.5 mmol/LCritically high 0.4-1.9The [facility] CenterComment on above:Performed By: #### LACT ####[facility] Cnywzsqsvi430[address] [place], [place] [address]Dr. Abiel ClementPOINT OF CARE GLUCOSEon 05-57-2084Twnqwun [Mass/Vol]238 mg/dL Critically bhoc21-208Xzl [facility] CenterComment on above:Performed By: #### POCGLUC ####[facility] Qdjvlkgjsj635[address] [place], [place] [address]Dr. Abiel ClementPROF CHEM 8 (BAS METB)on 24-98-7901Gtjqp gap [Moles/Vol]10.8 mmol/LNormalThe [facility] CenterComment on above:Performed By: #### BMP ####[facility] Xzhsoirwia364[address] [place], [place] [address]Dr. Abiel ChangCalcium [Mass/Vol]8.4 mg/dLCritically low8.5-10.1The [facility] CenterComment on above:Performed By: #### BMP ####[facility] Qlvriqplvy9[address] [place], [place] [address]Dr.Abiel ChangChloride [Moles/Vol]103 mmol/WCqtwqt36-172Lxm [facility] CenterComment on above:Performed By: #### BMP ####[facility] Lesrrokhub177[address] [place], [place] [address]Dr.Abiel ChangCO2 [Moles/Vol]27.0 mmol/CErbdgg46.0-32.0The [facility] CenterComment on above:Performed By: #### BMP ####[facility] Zlzwnutfhx[address] [place], [place] [address]Dr.Yilan ChangCreatinine [Mass/Vol]1.02 mg/dLNormal0.55-1.02The [facility] CenterComment on above: Performed By: #### BMP ####[facility] Gsmiybrims[address] [place], [place] [address]Dr.Yilan ChangEGFR-AF MARSHALLESE>60Normal>=60The [facility] CenterComment on above:Performed By: #### BMP ####[facility] Pahthmionf009[address] [place], [place] [address]Dr.Yilan ChangEGFR-NON AF XOCNPXKG22 mL/min/1.27m0Sgqytjorzo low>=60The [facility] CenterComment on above: Performed By: #### BMP ####[facility] Ldkhafhwfu632[address] [place], [place] [address]Dr.Yilan ChangGlucose [Mass/Vol]199 mg/dLCritically jawy14-348Pvn [facility] CenterComment on above:Performed By: #### BMP ####[facility] Mupovwowfw5764[address] [place], [place] [address]Dr. Yilan ChangPotassium [Moles/Vol]3.8 mmol/LNormal3.5-5.1The [facility] Comment on above:Performed By: #### BMP ####[facility] Fgvyzharhr[address] [place], [place] [address]Dr.Yilan ChangSodium [Moles/Vol]137 mmol/L Zonfwt784-837Ajm [facility] CenterComment on above:Performed By: #### BMP ####[facility] Blgnttdtzw29[address] [place], [place] [address]Dr. Yilan ChangUrea nitrogen [Mass/Vol]21.0 mg/dLCritically high7.0-18.0The [facility] CenterComment on above:Performed By: #### BMP ####[facility] Onkkutbbar[address] [place], [place] [address]Dr.Yilan ChangUrea nitrogen/Creatinine [Mass ratio]20.6 mg/mgNormalThe [facility] CenterComment on above:Performed By: #### BMP ####[facility] Ezxgrgwtdf757[address] [place], [place] [address]Dr.Abiel ChangACETONE SERUMon 21-95-9059NSVHAQV NegativeNormalNEGATIVEThe [facility] CenterComment on above:Performed By: #### ACETON ####[facility] Oncnrfjtes8[address] [place], [place] [address]Dr. Abiel ChangAMMONIAon 16-68-2447Jpproaj (P) [Moles/Vol]24 umol/LNormal The [facility] HospitalComment on above:Performed By: #### AMM ####[facility] Melyzkezms37[address] [place], [place] [address]Dr.Abiel ChangCBC AUTO DIFFon 74-03-8670DCDF #0.0 103/ulNormal0.0-0.1The [facility] CenterCominsight surgical hospital on above:Performed By: #### CBC ####[facility] Wfmfylyrud7[address] [place], [place] [address]Dr.Suyapaviviana ChangBasophils/100 WBC (Bld)0.3 %Normal 0.2-2.0The [facility] on above:Performed By: #### CBC ####[facility] Jgzooguklu30[address] [place], [place] [address]Dr.Suyapalan ChangEO # 0.0 103/ulNormal0.0-0.7The [facility] on above:Performed By: #### CBC ####[facility] Czavmcvzzu65[address] [place], [place] [address]Dr. Abiel ChangEosinophils/100 WBC (Bld)0.4 %Critically low0.9-7.0The [facility] Hospitalment on above:Performed By: #### CBC ####[facility] Ldmygcxnif38[address] [place], [place] [address]Dr.Abiel ChangErythrocyte distribution width (RBC) [Ratio]15.1 %Critically high11.0-15.0The [facility] Hospitalment on above:Performed By: #### CBC ####[facility] Haikcgmkon55[address] [place], [place] [address]Dr.Abiel ChangHematocrit (Bld) [Volume fraction]37.7 %Vqpabc84.0-48.0The [facility] CenterComment on above:Performed By: #### CBC ####[facility] Psyvnlrflx410[address] [place], [place] [address]Dr.Abiel ClementHemoglobin (Bld) [Mass/Vol]12.4 g/dL Rctyma28.0-16.0The [facility] HospitalComment on above:Performed By: #### CBC ####[facility] Pzcvgbolco1970[address] [place], [place] [address]Dr. Abiel ClementIG #0.02 10e3/ulNormal0.00-0.03The [facility] CenterComment on above: Performed By: #### CBC ####[facility] Diojpokpkn201[address] [place], [place] [address]Dr.Abiel ClementIG %0.2 %Normal0.0-0.5The [facility] CenterComment on above:Performed By: #### CBC ####[facility] Ofisruqvvx3817[address] [place], [place] [address]Dr.Abiel ClementLYMPH #0.6 103/ulCritically low1.2-3.8The [facility] CenterComment on above:Performed By: #### CBC ####[facility] Usrqveucvj579996 [address] [place], [place] [address]Dr.Abiel ClementLymphocytes/100 WBC (Bld)6.8 %Critically low20.5-60.0The [facility] CenterComment on above:Performed By: #### CBC ####[facility] Fhppfejskz6317[address] [place], [place] [address]Dr.Abiel ClementMANUAL DIFF REQ NONormalThe [facility] CenterComment on above:Performed By: #### CBC ####[facility] Jkdizfoywp1355[address] [place], [place] [address]Dr. Abiel ClementST. [facility] (RBC) [Entitic mass]27.7 vpAgtzrj66.7-34.0The [facility] Comment on above:Performed By: #### CBC ####[facility] Mnluvqquos2626[address] [place], [place] [address]Dr.Abiel ClementMCHC (RBC) [Mass/Vol]32.9 g/dL Nsvcve56.9-35.2[facility] HospitalComment on above:Performed By: #### CBC ####[facility] Buplvsmwsb1028[address] [place], [place] [address]Dr. Abiel ClementMCV (RBC) [Entitic vol]84.2 aJNfqtiz07.0-99.0The [facility] Comment on above:Performed By: #### CBC ####[facility] Dzgsyevyoi3960[address] [place], [place] [address]Dr.Abiel ClementMONO #0.4 103/ulNormal0.3-0.8 The [facility] CenterComment on above:Performed By: #### CBC ####[facility] Wgocfkwccu3228[address] [place], [place] [address]Dr.Abiel Clement Monocytes/100 WBC (Bld)4.7 %Normal1.7-12.0[facility] HospitalComment on above: Performed By: #### CBC ####[facility] Nmxugoagtp706[address] [place], [place] [address]Dr.Abiel ClementNEUT #8.1 103/ulCritically high1.4-6.5 The [facility] CenterComment on above:Performed By: #### CBC ####[facility] Ryqgyzycyq6620[address] [place], [place] [address]Dr.Abiel Clement Neutrophils/100 WBC (Bld)87.6 %Critically high43.0-75.0[facility] Comment on above:Performed By: #### CBC ####[facility] Wcahyfcqkp259[address] [place], [place] [address]Dr.Abiel ClementPlatelet mean volume (Bld) [Entitic vol]10.5 fLNormal9.5-13.5The [facility] CenterComment on above: Performed By: #### CBC ####[facility] Jvisaabwjc9000[address] [place], [place] [address]Dr.Abiel HthptNLN294 103/ctVspnbv295-910Jwq [facility] CenterComment on above:Performed By: #### CBC ####[facility] Msqtzifzna[address] [place] [id number].Abiel ClementRBC4.48 106/ul Normal4.20-5.40The [facility] CenterComment on above:Performed By: #### CBC ####[facility] Iaozxrxcqp58[address] [place] [address]Dr. Abiel ClementWBC9.2 103/ulNormal4.0-11.0The [facility] CenterComment on above: Performed By: #### CBC ####[facility] Gfqoclarig33[address] [place] [address]Dr.Abiel ChangCT ABD/PELV W CONon 82-02-9987NC ABD/PELV W CONNormalMercy Health Willard Hospital HospitalCT HEAD WO CONon 20-03-9628JD HEAD WO [facility] HospitalCULTURE BLOODon 43-81-6458Vkpxtbtsxla examination of blood, cultureCulture Observations: NO GROWTH AT 5 DAYS.NormalThe [facility] CenterComment on above:Performed By: #### BLDCX1 ####[facility] Amagdzowkd58[address] [place] [address]Dr. Abiel ClementPerformed By: #### BLDCX2 ####[facility] Vsmprnafun026[address] [place] [address]Dr. Abiel ClementCovid-19 PCR (CVDTB)on 87-90-0914SODB-CoV-2 (COVID-19) RNA CLARIBEL+probe Ql (Unsp spec)Not detectedNormalNOT DETECTEDThe [facility] CenterComment on above:Result Comment: When diagnostic testing is negative, the [...] for this test is supported by the [employer] of Health and Human Service's declaration that circumstances exist to justify the emergency use of in vitro diagnostics for the detection and/or diagnosis of the virus that causes COVID-19. This EUA will remain in effect for the duration of the COVID-19declaration justifying emergency of IVDs, unless it is terminated or revoked by the FDA (after which the test may no longer be used).Performed By: #### CVDTBH ####[facility] Kyjmlgafqi4936[address] [place], [place] [address]Dr. Abiel UrbanoDRUG SCREEN RAPID (URINE)on 73-53-0441VCQClijsjxqOqzjkg NEGATIVEEast [place] HospitalComment on above:Performed By: #### DRUGRPD ####[facility] Ghuocbjtkh285[address] [place], [place] [address]Dr. Abiel ChangBARNegativeNormalNEGATIVEEast [place] [facility] HospitalComment on above: Performed By: #### DRUGRPD ####[facility] Ajyjxdhpfg044[address] [place], [place] [address]Dr. Abiel ChangBUPNegativeNormalNEGATIVEEast [place] [facility] HospitalComment on above:Performed By: #### DRUGRPD ####[facility] Ipoodzsfnh698[address] [place], [place] [address]Dr. Abiel ChangBZONegative NormalNEGATIVEEast [place] [facility] HospitalComment on above:Performed By: #### DRUGRPD ####[facility] Ydxuylvpjd9527[address] [place], [place] [address]Dr. Abiel ChangCOCNegativeNormalNEGATIVEEast [place] [facility] HospitalComment on above: Performed By: #### DRUGRPD ####[facility] Fewfailppg6847[address] [place], [place] [address]Dr. Abiel ChangCUT-OFFSSEE [facility] HospitalComment on above:Result Comment: AMP (Amphetamine): 500ng/mL, BAR (Barbituates): 200 ng/mL, BZO (Benzodiazepines): 150 ng/mL, BUP (Buprenorphine): 10 ng/mL, CAROLINE (Cocaine): 150 ng/mL, mAMP (Methamphetamine): 500 ng/mL, MTD (Methadone): 200 ng/mL, OPI (Opiates): 100 ng/mL, OXY (Oxycodone): 100 ng/mL, PCP (Phencyclidine): 25 ng/mL, PPX (Propoxyphene): 300 ng/mL, THC (Cannabinoids): 50 ng/mL, TCA (Trycyclic Antidepressants): 300 ng/mLPerformed By: #### DRUGRPD ####[facility] Adnjfjesrj2650[address] [place], [place] [address]Dr. Yilan ChangDRUG CUT HEADERDRUG CLASS TEST SYSTEM CUT-OFF CONCENTRATIONS ARE FOLLOWS:NormalThe [facility] HospitalComment on above: Performed By: #### DRUGRPD ####[facility] Rxrzjwndkp37029[address] [place], [place] [address]Dr. Yilan ChangmAMPNegativeNormalNEGATIVEMercy Health Willard Hospital HospitalComment on above:Performed By: #### DRUGRPD ####[facility] Ygbisordxk9567[address] [place], [place] [address]Dr. Yilan ChangMTDNegative NormalNEGATIVEMercy Health Willard Hospital HospitalComment on above:Performed By: #### DRUGRPD ####[facility] Jdkedebfkc674[address] [place], [place] [address]Dr. Yilan ChangOPIPositiveAbnormalNEGATIVEMercy Health Willard Hospital HospitalComment on above: Performed By: #### DRUGRPD ####[facility] Aodmhbpyeg163196 [address] [place], [place] [address]Dr. Yilan ChangOXYNegativeNormalNEGATIVEMercy Health Willard Hospital HospitalComment on above:Performed By: #### DRUGRPD ####[facility] Xsonqdmjsp5280[address] [place], [place] [address]Dr. Yilan ChangPCPNegative NormalNEGATIVEMercy Health Willard Hospital HospitalComment on above:Performed By: #### DRUGRPD ####[facility] Bioqgpxnwg9340[address] [place], [place] [address]Dr. Yilan ChangPPXNegativeNormalNEGATIVEMercy Health Willard Hospital HospitalComment on above: Performed By: #### DRUGRPD ####[facility] Jlclofnhhc5650[address] [place], [place] [address]Dr. Yilan ChangTCANegativeNormalNEGATIVEMercy Health Willard Hospital HospitalComment on above:Performed By: #### DRUGRPD ####[facility] Kgatebvhbx6627[address] [place], [place] [address]Dr. Yilan ChangTHCNegative NormalNEGATIVEEast [place] [facility] HospitalComment on above:Performed By: #### DRUGRPD ####[facility] Fukmdttatw7260[address] [place], [place] [address]Dr. Yilan ChangER URINE PROFILEon 66-32-1179Qeecitlti Ql (U)NegativeNormalNEGATIVE The [facility] CenterComment on above:Performed By: #### CARLOS IBARRARO ####[facility] Ymtldlecno446[address] [place], [place] [address]Dr. Yilan ChangClarity (U)CLEARNormalCLEAREast [place] [facility] HospitalComment on above: Performed By: #### NESSA IBARRA ####[facility] Hkyqxomrew164[address] [place], [place] [address]Dr. Yilan ChangColor (U)LT. YELLOWNormalYELLOWEast [place] City HospitalComment on above:Performed By: #### NESSA IBARRA ####[facility] Rgoiqacgkg667[address] [place], [place] [address]Dr. Yilan ChangERUAHD A micrscopic examination will be performed if indicated.NormalThe [facility] CenterComment on above:Performed By: #### NESSA IBARRA ####[facility] Cfezixpmmh55[address] [place], [place] [address]Dr. Yilan ChangGlucose Ql (U) NegativeNormalNEGATIVEEast [place] [facility] HospitalComment on above:Performed By: #### NESSA IBARRA ####[facility] Lvkliqchow433[address] [place], [place] [address]Dr. Yilan ChangHemoglobin Ql (U)SMALLAbnormalNEGATIVEEast [facility] Comment on above:Performed By: #### CARLOS IBARRARO ####[facility] Zntmxovqqb748[address] [place], [place] [address]Dr. Yilan ChangKetones Ql (U) NegativeNormalNEGATIVEEast [place] [facility] HospitalComment on above:Performed By: #### CARLOS IBARRARO ####[facility] Hgkjpnvsgt6891 [place], [place] [address]Ra. Abiel ChangLEUKOCYTESLARGEAbnormalNEGATIVEThe [facility] CenterComment on above:Performed By: #### NESSA IBARRA ####[facility] Jmqgsdjvyv0654 [place] [address]Dr. Abiel ChangNitrite Ql (U)NegativeNormal NEGATIVEThe [facility] CenterComment on above:Performed By: #### NESSA IBARRA ####[facility] Fauaiukmxl1460 [place] [address]Dr. Abiel ChangpH (U)5.0 [pH]Normal5-9The [facility] CenterComment on above: Performed By: #### NESSA IBARRA ####[facility] Jqkmafnlmk9093 [place] [address]Dr. Abiel ChangSPEC GRAVITY1.354Nzuknw0.005-<=1.025The [facility] CenterComment on above:Performed By: #### NESSA IBARRA ####[facility] Sizlpmijvt[address] [place], [place] [address]Dr. Abiel ClementUA PROTEINNegativeNormalNEGATIVE/ TRACEThe [facility] CenterComment on above: Performed By: #### NESSA IBARRA ####[facility] Zfdcizxrly35[address] [place], [place] [address]Dr. Abiel ClementUR MICRO INDINDICATEDNoSt. Vincent HospitalComment on above:Performed By: ###NESSA CHILDERS ####[facility] Lnrebevkuc9345[address] [place], [place] [id number]. Abiel ChangUrobilinogen Qn (U)0.2 {Keegan'U}/dLNormal0.2 - 1.0The [facility] CenterComment on above: Performed By: #### NESSA IBARRA ####[facility] Fozftndpfy979[address] [place], [place] [phone]. Suyapalan ChangETHANOL (BLD ALC)on 53-72-1307HTA NOTE NOTE: 80 mg/dl is the legal limit for a blood alcohol levelGreen Cross HospitalComment on above:Performed By: #### ETH ####[facility] Uthozlmiai8224[address] [place], [place] [address]Dr.Yilan ChangEthanol [Mass/Vol]mg/dLNoSt. Vincent HospitalComment on above:Performed By: #### ETH ####[facility] Urxvnmzmbf2232[address] [place], [place] [address]Dr. Suyapalan ChangINFLUENZA A AND B AGon 06-61-5519OIGQTTYYVIHDC [facility] HospitalComment on above:Result Comment: Negative for Flu A protein angiten. Infection due to Flu A cannot be ruled out. FluA angiten in the sample may be below the detection limit of the test.Performed By: #### INFLUAB ####[facility] Yeofpfxorn959[address] [place], [place] [address]Dr. Yilan ChangINFLUBNEGHSEE [facility] HospitalComment on above:Result Comment: Negative for Flu B protein antigen. Infection due to Flu B cannot be ruled out. FluB antigen in the sample may be below the detection limit of the test.Performed By: #### INFLUAB ####[facility] Vxvsmystpd1075[address] [place], [place] [address]Dr. Yilan ChangINFLUENZA A AGNegativeNormalNEGATIVE SEE COMMENTThe [facility] CenterComment on above:Performed By: #### INFLUAB ####[facility] Uptnjvnlik815[address] [place], [place] [address]Dr. Yilan ChangINFLUENZA B AGNegativeNormalNEGATIVE SEE COMMENTThe [facility] Comment on above:Performed By: #### INFLUAB ####[facility] Whtxdxolyt4026[address] [place], [place] [address]Dr. Yilan ChangINTERNAL CONTROLSWithin Normal LimitsNormalWithin Normal LimitsThe [facility] CenterComment on above: Performed By: #### INFLUAB ####[facility] Tisftrnqwy0744[address] [place], [place] [address]Dr. Yilan ChangLACTATE/LACTIC ACIDon 57-15-2569Wyqsaal [Moles/Vol]2.0 mmol/LCritically high0.4-1.9The [facility] CenterComment on above:Performed By: #### LACT ####[facility] Boxbhyiamc389[address] [place], [place] [address]Dr. Abiel ClementLIPASEon 93-94-0930Tlvmzh [Catalytic activity/Vol]28.0 U/LCritically low73.0-393.0The [facility] CenterComment on above:Performed By: #### LIPA, CMP, HSTROPN, TSH ####[facility] Zfihvavvmb433[address] [place], [place] [address]Dr. Abiel ChangPH VENOUS BLOODon 31-73-3827ILF8 ZFGSGQ62.0 mmHgCritically low40.0-52.0The [facility] CenterComment on above:Performed By: #### PHVEN ####[facility] Skxqpnoxpx7575[address] [place], [place] [address]Dr. Abiel ChangpH VENOUS7.509 Critically high7.330-7.430The [facility] CenterComment on above:Performed By: #### PHVEN ####[facility] Fklycbuuyx5747[address] [place], [place] [address]Dr. Abiel ChangPOINT OF CARE GLUCOSEon 90-78-9266Yhwpwot [Mass/Vol]230 mg/dLCritically chwd27-741Dps [facility] CenterComment on above:Performed By: #### POCGLUC ####[facility] Eveiajythd378[address] [place], [place] [address]Dr. Abiel ChangPROF 14(COMP METB)on 56-12-0456Vejzxkg [Mass/Vol]3.0 g/dL Critically low3.4-5.0The [facility] CenterComment on above:Performed By: #### LIPA, CMP, HSTROPN, TSH ####[facility] Xitpgacgqh3437[address] [place], [place] [address]Dr. Abiel ClementAlbumin/Globulin [Mass ratio]0.7 {ratio}NormalThe [facility] CenterComment on above:Performed By: #### LIPA, CMP, HSTROPN, TSH ####[facility] Iasxyvsckl676[address] [place], [place] [address]Dr. Yilan ChangALP [Catalytic activity/Vol]196 U/LCritically kuvw07-290Fwn [facility] CenterComment on above:Performed By: #### LIPA, CMP, HSTROPN, TSH ####[facility] Kdeqbothll[address] [place] [address]Dr. Yilan ChangALT [Catalytic activity/Vol]21 U/HIneqyq89-76Uhm [facility] Comment on above:Performed By: #### LIPA, CMP, HSTROPN, TSH ####[facility] Tinxhrohli[address] [place] [address]Dr. Yilan ChangAnion gap [Moles/Vol]12.1 mmol/LNormalThe [facility] CenterComment on above:Performed By: #### LIPA, CMP, HSTROPN, TSH ####[facility] Mcqdyihfdt[address] [place] [address]Dr. Yilan ChangAST [Catalytic activity/Vol]29 U/L Gdxpth26-31Brn [facility] CenterComment on above:Performed By: #### LIPA, CMP, HSTROPN, TSH ####[facility] K[address]hxvlnsc9[address] [place] [address]Dr. Yilan ChangBilirubin [Mass/Vol]0.3 mg/dLNormal0.2-1.0The [facility] CenterComment on above:Performed By: #### LIPA, CMP, HSTROPN, TSH ####[facility] Qrfrzeuhpn17[address] [place] [address]Dr. Yilan Clement Calcium [Mass/Vol]8.9 mg/dLNormal8.5-10.1The [facility] CenterComment on above: Performed By: #### LIPA, CMP, HSTROPN, TSH ####[facility] Vecgxzkvwa87[address] [place] [address]Dr. Yilan ChangChloride [Moles/Vol]102 mmol/PZaodhe73-866Uyy [facility] CenterComment on above:Performed By: #### LIPA, CMP, HSTROPN, TSH ####[facility] Ftdxbtpvdm[address] [place] [address]Dr. Yilan ChangCO2 [Moles/Vol]27.1 mmol/QWfecaz74.0-32.0The [facility] CenterComment on above:Performed By: #### LIPA, CMP, HSTROPN, TSH ####[facility] Icayqevvzg32[address] [place] [address]Dr. Yilan ChangCreatinine [Mass/Vol]0.83 mg/dLNormal0.55-1.02The [facility] Comment on above:Performed By: #### LIPA, CMP, HSTROPN, TSH ####[facility] Nzptshzqci7[address] [place] [address]Dr. Yilan ChangEGFR- AF MARSHALLESE>60Normal>=60The [facility] CenterComment on above:Performed By: #### LIPA, CMP, HSTROPN, TSH ####[facility] Qfnxxkatyw7597 [place] [address]Dr. Yilan ChangEGFR-NON AF MARSHALLESE>60Normal>=60The [facility] CenterComment on above:Performed By: #### LIPA, CMP, HSTROPN, TSH ####[facility] Ywktkckszo224[address] [place] [address]Dr. Yilan ChangGlobulin (S) [Mass/Vol]4.2 g/dLNormalThe [facility] CenterComment on above:Performed By: #### LIPA, CMP, HSTROPN, TSH ####[facility] Gykdfvgeuk4[address] [place] [address]Dr. Yilan ChangGlucose [Mass/Vol]132 mg/dLCritically lpxj88-135Zpz [facility] CenterComment on above: Performed By: #### LIPA, CMP, HSTROPN, TSH ####[facility] Aohkblylsx7[address] [place] [address]Dr. Yilan ChangPotassium [Moles/Vol]4.2 mmol/LNormal3.5-5.1The [facility] CenterComment on above:Performed By: #### LIPA, CMP, HSTROPN, TSH ####[facility] Grixpvgqam[address] [place] [address]Dr. Yilan ChangProtein [Mass/Vol]7.2 g/dLNormal6.4-8.2 The [facility] CenterComment on above:Performed By: #### LIPA, CMP, HSTROPN, TSH ####[facility] Errsdozbil30[address] [place], [place] [address]Dr. Yilan ChangSodium [Moles/Vol]137 mmol/OLvdcpe417-442Pao [facility] CenterComment on above:Performed By: #### LIPA, CMP, HSTROPN, TSH ####[facility] Unedixvypq8601[address] [place], [place] [address]Dr. Yilan ChangUrea nitrogen [Mass/Vol]18.0 mg/dLNormal7.0-18.0The [facility] CenterComment on above: Performed By: #### LIPA, CMP, HSTROPN, TSH ####[facility] Ppohxgrhon060[address] [place], [place] [address]Dr. Suyapalan ChangUrea nitrogen/Creatinine [Mass ratio]21.7 mg/mgNoSt. Vincent HospitalComment on above:Performed By: #### LIPA, CMP, HSTROPN, TSH ####[facility] Pbbylbodkn85[address] [place], [place] [address]Dr. Abiel ClementPROTIMEon 49-09-4598SHC Coag (PPP) [Relative time]1.05 {INR}NormalCommunity Regional Medical Center on above:Performed By: #### PTT, PT ####[facility] Eaxxrgtdhu01[address] [place], [place] [address]Dr. Abiel ClementINR GUIDELINESSEE [facility] Comment on above:Result Comment: DESIRED INR: 2.0 - 3.0 CONDITIONS NOT LISTED BELOW 2.5 - 3.5 FOR PROSTHETIC HEART VALVE REPLACEMENT 2.5 - 3.5 RECURRENT THROMBOSISPerformed By: #### PTT, PT ####[facility] Zhdrnqcpdb01[address] [place], [place] [address]Dr. Abiel ClementPT Coag (PPP) [Time]11.3 sNormal 9.0-11.6The [facility] CenterComment on above:Performed By: #### PTT, PT ####[facility] Zizygzwpsl024[address] [place] [address]Dr. Abiel ClementPTTon 57-70-1929dMMO Coag (Bld) [Time]25.2 hYxhrrp21.3-36.2The [facility] CenterComment on above:Performed By: #### PTT, PT ####[facility] Auztktmdcr68[address] [place], [place] [address]Dr. Abiel Clement TROPONIN, HIGH SENSITIVITYon 35-67-1831GHRBXQ8.0 pg/mLNormal4.0-51.3The [facility] CenterCominsight surgical hospital on above:Result Comment: CUT-OFF POINTS HAVE BEEN ESTABLISHED BASED ON THE FOURTH UNIVERSAL DEFINITIONS OF MYOCARDIALINFARCTION. THE UPPER REFERENCE LIMIT (URL) OF TROPONIN, DEFINED THE 99TH PERCENTILE OFcTnI DISTRIBUTION IN A REFERENCE POPULATION, HAS BEEN CONFIRMED THE DECISION THRESHOLDFOR MA DIAGNOSIS.Performed By: #### LIPA, CMP, HSTROPN, TSH ####[facility] Lxkypqdgbo[address] [place], [place] [address]Dr. Abiel ClementTSHon 94-02-3599BKI4.695 uIU/mLNormal0.358-3.740The [facility] Comment on above:Performed By: #### LIPA, CMP, HSTROPN, TSH ####[facility] Ab[address]hrpdir[address] [place] [address]Dr. Abiel ClementURINE MICROSCOPIC ONLYon 97-86-1218BSYRLXFHBNNALRSBGbzxakhtUAPT SEENEast [facility] HospitalCominsight surgical hospital on above:Performed By: #### CAROLS IBARRARO ####[facility] Anrebczvma[address] [place] [address]Dr. Abiel ClementBacteria identified Cx Nom (U)INDICATEDNoalThUpper Valley Medical CenterCominsight surgical hospital on above: Performed By: #### CARLOS IBARRARO ####[facility] Eifnzpcyno[address] [place] [address]Dr. Abiel ChangCASTNONE SEENNormalNONE SEENEast Liverpool City HospitalComment on above:Performed By: #### ERUR, UMICRO ####[facility] [address]xmtakeera[address] [place], [place]Dr. Abiel ChangCrystals LM Nom (Urine sed)NONE SEENNormalNONE SEENEast [facility] HospitalCominsight surgical hospital on above: Performed By: #### STACEY UMICRO ####[facility] Plrlkszszi67[address] [place] [phone]. Abiel ChangEpithelial cells LM Ql (Urine sed)FEW AbnormalNONE SEEN /RAREThe [facility] CenterComment on above:Performed By: #### STACEY UMICRO ####[facility] Rrfupixloy[address] [place] [address]Dr. Abiel ChangMUCOUSNONE SEENNormalNONE SEENThe [facility] CenterComment on above:Performed By: #### STACEY UMICRO ####[facility] Vkfxandyip18[address] [place] [address]Dr. Abiel CpvrnTTQ3-8Fzyorzdq7-3Qak [facility] CenterComment on above:Performed By: #### STACEY UMICRO ####The [facility] Zrhpkyawnr[address] [place], [place] [address]Dr. Abiel AarroMXB93-01 AbnormalNONE SEENThe [facility] CenterCominsight surgical hospital on above:Performed By: #### STACEY UMICRO ####[facility] [address] [place] [address]Dr. Abiel ClementXR CHEST 1 Von [id number] CHEST 1 VNormalThe [facility] CenterXR FOOT RT MIN 3 VIEWSon 13-77-5010JT FOOT RT MIN 3 VIEWSNormalThUpper Valley Medical CenterCB AUTO DIFFon 10-92-8067HIQG #0.0 103/ulNormal0.0-0.1The [facility] on above:Performed By: #### CBC ####[facility] Wmiawwrbwj[address] [place] [address]Dr.Yilan ChangBasophils/100 WBC (Bld)0.5 %Normal0.2-2.0The [facility] CenterComment on above:Performed By: #### CBC ####[facility] Gfvyzcxwox24[address] [place], [place] [address]Dr.Suyapalan ChangEO #0.3 103/ulNormal0.0-0.7The [facility] CenterComment on above:Performed By: #### CBC ####[facility] Woktlaelur58[address] [place], [place] [address]Dr.Suyapaviviana ChangEosinophils/100 WBC (Bld)3.5 %Normal 0.9-7.0The [facility] HospitalComment on above:Performed By: #### CBC ####[facility] Fixccmnicq713[address] [place], [place] [address]Dr.Abiel Clement Erythrocyte distribution width (RBC) [Ratio]13.7 %Cpgmaa29.0-15.0The [facility] CenterComment on above:Performed By: #### CBC ####[facility] Cajoctfjzy7[address] [place], [place] [address]Dr.Abiel ChangHematocrit (Bld) [Volume fraction]34.2 %Critically low36.0-48.0The [facility] CenterComment on above:Performed By: #### CBC ####[facility] Lrwvixlmed228[address] [place], [place] [address]Dr.Abiel ChangHemoglobin (Bld) [Mass/Vol]10.5 g/dL Critically low12.0-16.0The [facility] CenterComment on above:Performed By: #### CBC ####[facility] Cunhelbkwy68[address] [place], [place] [address]Dr. Suyapaviviana ChangIG #0.02 10e3/ulNormal0.00-0.03The [facility] CenterComment on above: Performed By: #### CBC ####[facility] Hjwvdhhajo686[address] [place], [place] [address]Dr.Abiel ChangIG %0.3 %Normal0.0-0.5The [facility] CenterComment on above:Performed By: #### CBC ####[facility] Kluglzvacr3850[address] [place], [place] [address]Dr.Suyapalan ChangLYMPH #1.4 103/ulNormal1.2-3.8The [facility] CenterComment on above:Performed By: #### CBC ####[facility] Auvmtglviy6580[address] [place], [place] [address]Dr. Abiel ClementLymphocytes/100 WBC (Bld)18.5 %Critically low20.5-60.0The [facility] CenterComment on above:Performed By: #### CBC ####[facility] Rmjoxcvdjq6924[address] [place], [place] [address]Dr.Suyapaviviana ClementMANUAL DIFF REQ NONormalThe [facility] CenterComment on above:Performed By: #### CBC ####[facility] Egivhlsyye4220[address] [place], [place] [address]Dr. Abiel ClementH (RBC) [Entitic mass]27.8 edWbcrqa79.7-34.0The [facility] Comment on above:Performed By: #### CBC ####[facility] Hnlpzoympy5737[address] [place], [place] [address]Dr.Abiel ClementHC (RBC) [Mass/Vol]30.7 g/dL Lhvssn68.9-35.2The [facility] CenterComment on above:Performed By: #### CBC ####[facility] Blqrhixxsc9836[address] [place], [place] [address]Dr. Suyapaviviana ClementV (RBC) [Entitic vol]90.5 wIQedckj67.0-99.0The [facility] Comment on above:Performed By: #### CBC ####[facility] Jspxjhhdju139[address] [place], [place] [address]Dr.Abiel ClementMONO #0.7 103/ulNormal0.3-0.8 The [facility] CenterComment on above:Performed By: #### CBC ####[facility] Herenzjgfb911[address] [place], [place] [address]Dr.Suyapaviviana Clement Monocytes/100 WBC (Bld)8.5 %Normal1.7-12.0The [facility] CenterComment on above: Performed By: #### CBC ####[facility] Syvpkjcwqu883[address] [place], [place] [address]Dr.Abiel ClementNEUT #5.2 103/ulNormal1.4-6.5The [facility] CenterComment on above:Performed By: #### CBC ####[facility] Uhnyjxfpet3060[address] [place], [place] [address]Dr.Abiel ClementNeutrophils/100 WBC (Bld)68.7 %Jfrywi93.0-75.0[facility] HospitalComment on above:Performed By: #### CBC ####[facility] Pkobexiueq628[address] [place], [place] [address]Dr.Abiel ClementPlatelet mean volume (Bld) [Entitic vol]11.0 fLNormal9.5-13.5 The [facility] CenterComment on above:Performed By: #### CBC ####[facility] Culyxpfjry027[address] [place], [place] [address]Dr.Abiel YhlwdHVE202 103/mvOonwqr726-871Vpx [facility] CenterComment on above:Performed By: #### CBC ####[facility] Qwmiyvqsbb000[address] [place], [place] [address]Dr. Abiel ChangRBC3.78 106/ulCritically low4.20-5.40The [facility] CenterComment on above:Performed By: #### CBC ####[facility] Wwuujupzxf484[address] [place], [place] [address]Dr.Abiel ClementWBC7.6 103/ulNormal4.0-11.0[facility] HospitalComment on above:Performed By: #### CBC ####[facility] Yyguwofznk559[address] [place], [place] [address]Dr.Abiel [facility] GLUCOSEon 05-08-8044Burvcfj [Mass/Vol]84 mg/dTCqcjrs09-734Kce [facility] Comment on above:Performed By: #### POCGLUC ####[facility] Aqmanixibl440[address] [place], [place] [address]Dr. Abiel ClementGlucose [Mass/Vol]49 mg/dL Critically vlc48-534CtpEast Liverpool City HospitalComment on above:Result Comment: Will Repeat TestPerformed By: #### POCGLUC ####[facility] Anzasairzr2045[address] [place], [place] [address]Dr. Yilan ChangGlucose [Mass/Vol]182 mg/dL Critically sozu31-725Bps [facility] CenterComment on above:Performed By: #### POCGLUC ####[facility] Cbekkwgjmp479[address] [place], [place] [address]Dr. Yilan ChangPROF CHEM 8 (BAS METB)on 10-84-7162Kcceg gap [Moles/Vol]8.5 mmol/LNormalThe [facility] CenterComment on above:Performed By: #### BMP ####[facility] Vnxlijtjjf615[address] [place], [place] [address]Dr. Yilan ChangCalcium [Mass/Vol]9.2 mg/dLNormal8.5-10.1The [facility] CenterComment on above:Performed By: #### BMP ####[facility] Xxqfxnudzh9988[address] [place], [place] [address]Dr.Yilan ChangChloride [Moles/Vol]99 mmol/LNormal 98-107The [facility] CenterComment on above:Performed By: #### BMP ####[facility] Cpgspkcucq1533[address] [place], [place] [address]Dr.Yilan ChangCO2 [Moles/Vol]29.5 mmol/FAuludp23.0-32.0The [facility] CenterComment on above: Performed By: #### BMP ####[facility] Kzspkwgams760[address] [place], [place] [address]Dr.Yilan ChangCreatinine [Mass/Vol]0.97 mg/dLNormal 0.55-1.02The [facility] CenterComment on above:Performed By: #### BMP ####[facility] Zmnkqmjlzt189[address] [place], [place] [address]Dr. Yilan ChangEGFR-AF MARSHALLESE>60Normal>=60The [facility] CenterComment on above: Performed By: #### BMP ####[facility] Gnrliyuoro977[address] [place], [place] [address]Dr.Yilan ChangEGFR-NON AF SWGLHJZU99 mL/min/1.73m2 Critically low>=60The [facility] CenterComment on above:Performed By: #### BMP ####[facility] Mdajpbewct[address] [address]Dr. Yilan ChangGlucose [Mass/Vol]193 mg/dLCritically hatl92-587AjfEast Liverpool City Hospital Comment on above:Performed By: #### BMP ####[facility] Cdqmxmdxyj5[address] [address]Dr.Yilan ChangPotassium [Moles/Vol]4.0 mmol/LNormal3.5-5.1The [facility] CenterComment on above:Performed By: #### BMP ####[facility] Cylddlwnxv4[address] [address]Dr. Yilan ChangSodium [Moles/Vol]133 mmol/LCritically qmq198-137Bkc [facility] CenterComment on above:Performed By: #### BMP ####[facility] Amzgloyfzd152[address] [place], [place] [address]Dr.Yilan ChangUrea nitrogen [Mass/Vol]20.0 mg/dLCritically high7.0-18.0The [facility] CenterComment on above:Performed By: #### BMP ####[facility] Ycyjnwdezx815[address] [place], [place] [address]Dr.Yilan ChangUrea nitrogen/Creatinine [Mass ratio] 20.6 mg/mgNoalThUpper Valley Medical CenterComment on above:Performed By: #### BMP ####[facility] Vpjqqjwoqc4733[address] [place], [place] [address]Dr. Abiel [facility] OF CARE GLUCOSEon 62-14-5192Hzjujpw [Mass/Vol]62 mg/dL Critically ytq84-271Wop [facility] CenterComment on above:Performed By: #### POCGLUC ####[facility] Gbrzzaftao115[address] [place], [place] [address]Dr. Yilan ChangGlucose [Mass/Vol]75 mg/vADbkypk23-104Wwr [facility] Comment on above:Performed By: #### POCGLUC ####[facility] Kkenqnuzdm3650[address] [place], [place] [address]Dr. Yilan ChangGlucose [Mass/Vol]83 mg/dL Wufdrr07-627Mty Solo HospitalComment on above:Performed By: #### POCGLUC ####[facility] Lhxxufgoil7917[address] [place], [place] [address]Dr. Suyapalan ChangGlucose [Mass/Vol]107 mg/dLCritically jwdb43-008Lxr [facility] Comment on above:Performed By: #### POCGLUC ####[facility] Adsmsqyofl526[address] [place], [place] [address]Dr. Suyapalan ChangGlucose [Mass/Vol]140 mg/dL Critically dtff51-365Ftz [facility] HospitalComment on above:Performed By: #### POCGLUC ####[facility] Vgtjmlbwtx3716[address] [place], [place] [address]Dr. Suyapalan UrbanoCBC AUTO DIFFon 39-36-9530SUCZ #0.0 103/ulNormal0.0-0.1The [facility] CenterComment on above:Performed By: #### CBC ####[facility] Ljsxrvbrmg3517[address] [place], [place] [address]Dr.Abiel ChangBasophils/100 WBC (Bld)0.3 %Normal0.2-2.0The [facility] CenterComment on above:Performed By: #### CBC ####[facility] Rirpdrvnpp897[address] [place], [place] [address]Dr.Yilan ChangEO #0.2 103/ulNormal0.0-0.7The [facility] CenterComment on above:Performed By: #### CBC ####[facility] Eggngxfnqe8100[address] [place], [place] [address]Dr.Abiel ChangEosinophils/100 WBC (Bld)1.9 %Normal 0.9-7.0The [facility] CenterComment on above:Performed By: #### CBC ####[facility] Xmljicadri607396 [address] [place], [place] [address]Dr.Suyapaviviana Clement Erythrocyte distribution width (RBC) [Ratio]13.8 %Uldkvz79.0-15.0The [facility] CenterComment on above:Performed By: #### CBC ####[facility] Cuxlfcibad136[address] [place], [place] [address]Dr.Yilan ChangHematocrit (Bld) [Volume fraction]37.7 %Ngtyjy60.0-48.0The [facility] CenterComment on above:Performed By: #### CBC ####[facility] Iaejrsnrps3928[address] [place], [place] [address]Dr.Abiel ClementHemoglobin (Bld) [Mass/Vol]11.7 g/dL Critically low12.0-16.0The [facility] CenterComment on above:Performed By: #### CBC ####[facility] Wcanaonngk2024[address] [place], [place] [address]Dr. Abiel ChangIG #0.03 10e3/ulNormal0.00-0.03The [facility] CenterComment on above: Performed By: #### CBC ####[facility] Brosdkyord355[address] [place], [place] [address]Dr.Abiel ChangIG %0.3 %Normal0.0-0.5The [facility] CenterComment on above:Performed By: #### CBC ####[facility] Lysugxatzg3023[address] [place], [place] [address]Dr.Abiel ChangLYMPH #1.1 103/ulCritically low1.2-3.8The [facility] CenterComment on above:Performed By: #### CBC ####[facility] Itsmmwuggo134[address] [place], [place] [address]Dr.Suyapaviviana UrbanoLymphocytes/100 WBC (Bld)12.0 %Critically low20.5-60.0The [facility] CenterComment on above:Performed By: #### CBC ####[facility] Rkgrydpsyk31999[address] [place], [place] [address]Dr.Suyapaviviana UrbanoMANUAL DIFF REQ NONormalThe [facility] CenterComment on above:Performed By: #### CBC ####[facility] Dzlxpdlwsq644[address] [place], [place] [address]Dr. Suyapaviviana ClementMCH (RBC) [Entitic mass]27.9 cmGdjysc69.7-34.0The [facility] Comment on above:Performed By: #### CBC ####[facility] Jbnjaimpxp1764[address] [place], [place] [address]Dr.Abiel ClementMCHC (RBC) [Mass/Vol]31.0 g/dL Xuiree69.9-35.2The [facility] CenterComment on above:Performed By: #### CBC ####[facility] [address]xfa[address] [address]Dr. Abiel ClementMCV (RBC) [Entitic vol]89.8 hFRhahul83.0-99.0The [facility] Comment on above:Performed By: #### CBC ####[facility] Kyopkwkndc224[address] [place], [place] [address]Dr.Abiel ClementMONO #0.7 103/ulNormal0.3-0.8 The [facility] CenterComment on above:Performed By: #### CBC ####[facility] Gzbdwauyps401[address] [place], [place] [address]Dr.Abiel Clement Monocytes/100 WBC (Bld)8.0 %Normal1.7-12.0The [facility] CenterComment on above: Performed By: #### CBC ####[facility] Sfinxekztx2490[address] [place], [place] [address]Dr.Abiel ClementNEUT #6.9 103/ulCritically high1.4-6.5 The [facility] CenterComment on above:Performed By: #### CBC ####[facility] Ejtoqvewwy449[address] [place], [place] [address]Dr.Abiel Clement Neutrophils/100 WBC (Bld)77.5 %Critically high43.0-75.0The [facility] Comment on above:Performed By: #### CBC ####[facility] Wljpasqtak890[address] [place], [place] [address]Dr.Abiel ClementPlatelet mean volume (Bld) [Entitic vol]11.1 fLNormal9.5-13.5The [facility] CenterComment on above: Performed By: #### CBC ####[facility] Ytojanvzup1547[address] [place], [place] [address]Dr.Abiel VnjodTRY174 103/qrNvbmvt484-122Jir [facility] CenterComment on above:Performed By: #### CBC ####[facility] [address]ymqltbd[address] [place] [place] [address]Dr.Suyapaviviana ChangRBC4.20 106/ul Normal4.20-5.40The [facility] CenterComment on above:Performed By: #### CBC ####[facility] Ilunavogmn[address] [place] [address]Dr. Abiel ChangWBC8.9 103/ulNormal4.0-11.0The [facility] CenterComment on above: Performed By: #### CBC ####[facility] Wfxyuocjme9937[address] [place], [place] [address]Dr.Abiel ClementPOINT OF CARE GLUCOSEon 06-01-2022 Glucose [Mass/Vol]121 mg/dLCritically jvsd72-695Dkh [facility] CenterComment on above:Performed By: #### POCGLUC ####[facility] Fusldkrlax943[address] [place], [place] [address]Dr. Abiel ClementGlucose [Mass/Vol]303 mg/dLCritically rbbq99-601Vek [facility] CenterComment on above:Performed By: #### POCGLUC ####[facility] Dtuquqssmk86[address] [place], [place] [address]Dr. Abiel ChangPROF 14(COMP METB)on 34-77-3299Zoskzkt [Mass/Vol]2.8 g/dLCritically low3.4-5.0The [facility] CenterComment on above:Performed By: #### CMP ####[facility] Uzlqeevsmy389[address] [place], [place] [address]Dr. Abiel ClementAlbumin/Globulin [Mass ratio]0.7 {ratio}NormalThe [facility] Comment on above:Performed By: #### CMP ####[facility] Leemoqozok[address] [place], [place] [address]Dr.Suyapalan ChangALP [Catalytic activity/Vol] 174 U/LCritically ssnx22-104Uzf [facility] CenterComment on above:Performed By: #### CMP ####[facility] Lcsfsueunv039[address] [place], [place] [address]Dr.Suyapalan ChangALT [Catalytic activity/Vol]14 U/PUsmibu20-82Zbv [facility] CenterComment on above:Performed By: #### CMP ####[facility] Oapmjolaxt[address] [place] [address]Dr.Yilan ChangAnion gap [Moles/Vol]14.2 mmol/LNormalThe [facility] CenterComment on above:Performed By: #### CMP ####[facility] Guyubvqrqq917[address] [place], [place] [address]Dr.Yilan ChangAST [Catalytic activity/Vol]13 U/LCritically ggz84-24Vrt [facility] CenterComment on above:Performed By: #### CMP ####[facility] Dfutylzxff129[address] [place], [place] [address]Dr.Yilan ChangBilirubin [Mass/Vol]0.1 mg/dLCritically low0.2-1.0The [facility] CenterComment on above: Performed By: #### CMP ####[facility] Ybatqywyow695[address] [place], [place] [address]Dr.Yilan ChangCalcium [Mass/Vol]8.9 mg/dLNormal 8.5-10.1The [facility] CenterComment on above:Performed By: #### CMP ####[facility] Nwlfabquth373[address] [place], [place] [address]Dr. Yilan ChangChloride [Moles/Vol]99 mmol/GWayzxh36-528Xni [facility] CenterComment on above:Performed By: #### CMP ####[facility] Hiyddxgpxy517[address] [place], [place] [address]Dr.Yilan ChangCO2 [Moles/Vol]27.1 mmol/LNormal 21.0-32.0The [facility] CenterComment on above:Performed By: #### CMP ####[facility] Cszubaqlib109[address] [place], [place] [address]Dr. Yilan ChangCreatinine [Mass/Vol]1.19 mg/dLCritically high0.55-1.02The [facility] CenterComment on above:Performed By: #### CMP ####[facility] Dogwktxkrj618[address] [place], [place] [address]Dr.Yilan ChangEGFR-AF LATIPIIQ40 mL/min/1.21t9Elolukhrtr low>=60The [facility] CenterComment on above: Performed By: #### CMP ####[facility] Grocciflvd[address] [place] [address]Dr.Yilan ChangEGFR-NON AF GAEPLAET57 mL/min/1.73m2 Critically low>=60The [facility] CenterComment on above:Performed By: #### CMP ####[facility] Axfhkvstke401[address] [place], [place] [address]Dr. Yilan ChangGlobulin (S) [Mass/Vol]4.0 g/dLNormalThe [facility] CenterComment on above:Performed By: #### CMP ####[facility] Tysclvtdgh076[address] [place], [place] [address]Dr.Yilan ChangGlucose [Mass/Vol]148 mg/dLCritically yhtd09-224Egv [facility] CenterComment on above:Performed By: #### CMP ####[facility] Dlucsgeaxa1037[address] [place], [place] [address]Dr. Yilan ChangPotassium [Moles/Vol]4.3 mmol/LNormal3.5-5.1The [facility] Comment on above:Performed By: #### CMP ####[facility] Jtgybjypcy58[address] [place], [place] [address]Dr.Yilan ChangProtein [Mass/Vol]6.8 g/dL Normal6.4-8.2The [facility] CenterComment on above:Performed By: #### CMP ####[facility] Mymxmfojoo3235[address] [place], [place] [address]Dr. Yilan ChangSodium [Moles/Vol]136 mmol/YBaftzh977-804Uth [facility] CenterComment on above:Performed By: #### CMP ####[facility] Wadalkmlwc839[address] [place], [place] [address]Dr.Yilan ChangUrea nitrogen [Mass/Vol]25.0 mg/dL Critically high7.0-18.0The [facility] CenterComment on above:Performed By: #### CMP ####[facility] Zvsgflmbgm534[address] [place], [place] [address]Dr. Yilan ChangUrea nitrogen/Creatinine [Mass ratio]21.0 mg/mgNoSt. Vincent HospitalComment on above:Performed By: #### CMP ####[facility] [address]ymdwcz[address] [place] [address]Dr.Abiel ChangXR CHEST 1 Von 30-30-0148IP CHEST 1 VNormalEast Liverpool City HospitalPOINT OF CARE GLUCOSEon 66-51-2572Zqyoiem [Mass/Vol]195 mg/dLCritically wawv80-176XwpEast [facility] City Hospital Comment on above:Performed By: #### POCGLUC ####[facility] [address]epwu[address] [place] [id number]. Yilan ChangGlucose [Mass/Vol]236 mg/dL Critically poeb66-427LhbEast Liverpool City HospitalComment on above:Performed By: #### POCGLUC ####[facility] Ogeaefubpv[address] [place] [address]Dr. Yilan ChangGlucose [Mass/Vol]169 mg/dLCritically irml56-142KqbEast Liverpool City HospitalComment on above:Performed By: #### POCGLUC ####[facility] [address]nyfnrmmvp[address] [place] [address]Dr. Yilan ChangGlucose [Mass/Vol]162 mg/dLCritically zvro52-645BimEast Liverpool City HospitalComment on above: Performed By: #### POCGLUC ####[facility] Osmfobtxen[address] [place] [address]Dr. Abiel ChangXR FOOT RT MIN 3 VIEWSon 48-67-2991JF FOOT RT MIN 3 [facility]ENTERNoSt. Vincent HospitalCovid-19 PCR (CVDTBH)on 05-27-2022 SARS-CoV-2 (COVID-19) RNA CLARIBEL+probe Ql (Unsp spec)Not detectedNormalNOT DETECTED The [facility] CenterCominsight surgical hospital on above:Result Comment: This test is not yet approved or cleared by the [place] FDA. When there are no FDA-approved or cleared tests available, and other criteria are met, FDA can make tests available under an emergency access mechanism called an Emergency Use Authorization (EUA). The EUA for this test is supported by the [place] of Health and Human Service's (HHS's) declaration [...] presence of clinical signs and symptomsconsistent with SARS-CoV-2.Performed By: #### CVDTB ####[facility] Xulikwlncc[address] [place], [place] [address]Dr. Abiel ChangPROF CHEM 8 (BAS METB)on 28-95-1747Jbapp gap [Moles/Vol]11.8 mmol/LNormalThe [facility] CenterComment on above:Performed By: #### BMP ####[facility] Wtokcfqvgo1425[address] [place], [place] [address]Dr.Yiviviana ChangCalcium [Mass/Vol]9.1 mg/dLNormal8.5-10.1The [facility] CenterComment on above:Performed By: #### BMP ####[facility] Bcpdtscaya[address] [place], [place] [address]Dr.Yilan ChangChloride [Moles/Vol]104 mmol/PYlxqwg79-689Rgb [facility] CenterComment on above:Performed By: #### BMP ####[facility] Hfjotbxdud[address] [place], [place] [address]Dr.Yilan ChangCO2 [Moles/Vol] 27.6 mmol/QCmwkvq47.0-32.0The [facility] CenterComment on above:Performed By: #### BMP ####[facility] Szmamxnpij[address] [place], [place] [address]Dr.Yilan ChangCreatinine [Mass/Vol]0.89 mg/dLNormal0.55-1.02The [facility] CenterComment on above:Performed By: #### BMP ####[facility] Vrlmodstac14[address] [place], [place] [address]Dr.Yilan ChangEGFR-AF MARSHALLESE>60Normal>=60The [facility] CenterComment on above:Performed By: #### BMP ####[facility] Rcmxvthrlb[address] [place] [address]Dr. Yilan ChangEGFR-NON AF MARSHALLESE>60Normal>=60The [facility] CenterComment on above:Performed By: #### BMP ####[facility] Juylhxpfqz58[address] [place] [address]Dr.Yilan ChangGlucose [Mass/Vol]83 mg/eGSrucum41-185 The [facility] CenterComment on above:Performed By: #### BMP ####[facility] Akzejmzzfw[address] [place], [place] [address]Dr.Yilan Clement Potassium [Moles/Vol]4.4 mmol/LNormal3.5-5.1[facility] HospitalComment on above:Performed By: #### BMP ####[facility] Qvdnjnvddp622[address] [place], [place] [address]Dr.Yilan ChangSodium [Moles/Vol]139 mmol/LNormal 136-145The [facility] CenterComment on above:Performed By: #### BMP ####[facility] Zzklmqvjar490[address] [place], [place] [address]Dr.Yilan ChangUrea nitrogen [Mass/Vol]18.0 mg/dLNormal7.0-18.0[facility] HospitalComment on above:Performed By: #### BMP ####[facility] Ibateigdvx044[address] [place], [place] [address]Dr.Yilan ChangUrea nitrogen/Creatinine [Mass ratio] 20.2 mg/mgNoSt. Vincent HospitalComment on above:Performed By: #### BMP ####[facility] Sficfazqbk59[address] [place], [place] [address]Dr. Yilan ChangCT CSPINE WO [facility]CH[facility]ATRIC CENTERon [id number] CSPINE WO [facility] HospitalCT HEAD WO CONon [id number] HEAD WO [facility] HospitalXR HIP RT 2 3V W PELVISon [id number] HIP RT 2 3V W PELVISNormMercy Health Fairfield HospitalCT FOOT RT WO CONon [id number] FOOT RT WO CONNormalThe [facility] CenterBLOOD CULTURE ID PANELon 04-30-2022. baumanniiNot detectedNormalNOT DETECTEDThe [facility] CenterComment on above:Performed By: #### BCID2 ####[facility] Iplgxlputy075[address] [place], [place] [address]Dr. Yiviviana ChangBacteriodes fragilisNot detectedNormalNOT DETECTEDEast [facility] City HospitalCominsight surgical hospital on above:Performed By: #### BCID2 ####[facility] Barvymyuus[address] [place], [place] [address]Dr. Abiel ClementBCID CONTROLS PASSEDGreen Cross HospitalComment on above:Performed By: #### BCID2 ####[facility] Gatwgdyedv867[address] [place], [place] [address]Dr. Yiviviana ClementBCIDBTHDBLOOD CULTURE BOTTLE [facility] Comment on above:Performed By: #### BCID2 ####[facility] Dnczrwkngd911[address] [place], [place] [address]Dr. Yiviviana ClementQpkatOOOWUF0DVVSUHCQEGTYU RESISTANCE GENESGreen Cross HospitalCominsight surgical hospital on above:Performed By: #### BCID2 ####[facility] Xnrywtenit165[address] [place], [place] [address]Dr. Yiviviana ClementXzmbeCHXBUY6NCW BELOWGreen Cross HospitalCominsight surgical hospital on above: Result Comment: Note: Antimicrobial resitance can occur via multiple mechanisms. A Not Detected result for the [employer] antomicrobial resistance gene assays does not indicate antimicrobial susceptibility. Subculturing is required for species identification and susceptibility testing of isolates.Performed By: #### BCID2 ####[facility] Unfrgqpuwc6844[address] [place], [place] [address]Dr. Abiel ClementTuaztQMMIVQ2DdxlnlfyVwddaoFdg Bellevue HospitalComment on above: Performed By: #### BCID2 ####[facility] Textaivznj195[address] [place], [place] [address]Dr. Yivivinaa ClementLabtbOJLKOZ4WvuaziftBxjtysMez Bellevue HospitalComment on above:Performed By: #### BCID2 ####[facility] Ozswdqgswy5[address] [place] [address]Dr. Yiviviana OdtpyLDXEWA7ZTBXP NormalThe [facility] CenterComment on above:Performed By: #### BCID2 ####[facility] Pzekpqvelv026[address] [place] [address]Dr. Abiel ChangBottle Set:Set 1NormalThe [facility] Island HospitalComment on above:Performed By: #### BCID2 ####[facility] Abfjmiglxb137996 [address] [place], [place] [address]Dr. Abiel ChangBottle:AerobicNormalThe [facility] CenterComment on above:Performed By: #### BCID2 ####[facility] Vfrfswoyfp584[address] [place], [place] [address]Dr. Abiel ClementC. neoformans/gattiiNot detectedNormal NOT DETECTEDThe [facility] CenterComment on above:Performed By: #### BCID2 ####[facility] Lbzjkokqaj733[address] [place], [place] [address]Dr. Abiel ChangCandida albicansNot detectedNormalNOT DETECTEDThe [facility] Comment on above:Performed By: #### BCID2 ####[facility] Oqbaiviesg1505[address] [place], [place] [address]Dr. Abiel ChangCandida aurisNot detected NormalNOT DETECTEDThe [facility] CenterCominsight surgical hospital on above:Performed By: #### BCID2 ####[facility] Ysjbpdbfmk6050[address] [place], [place] [address]Dr. Abiel ClementCandida glabrataNot detectedNormalNOT DETECTEDThe [facility] Comment on above:Performed By: #### BCID2 ####[facility] Inuvljjovp2917[address] [place], [place] [address]Dr. Abiel ChangCandida KruseiNot detected NormalNOT DETECTEDThe [facility] CenterComment on above:Performed By: #### BCID2 ####[facility] Iryoxhjfux387[address] [place], [place] [address]Dr. Abiel ChangCandida ParapsilosisNot detectedNormalNOT DETECTEDThe [facility] CenterComment on above:Performed By: #### BCID2 ####[facility] Rkbxarkssp8[address] [place] [address]Dr. Yilan ChangCandida TropicalisNot detectedNormalNOT DETECTEDThe [facility] CenterComment on above: Performed By: #### BCID2 ####[facility] Parmuvhqyi088[address] [place], [place] [address]Dr. Yilan ChangCTX-M Resistant GeneNot Applicable NormalNOT DETECTEDThe [facility] CenterComment on above:Performed By: #### BCID2 ####[facility] Xtcsmcjbkq512[address] [place], [place] [address]Dr. Yilan ChangE. Cloacae complexNot detectedNormalNOT DETECTEDThe [facility] Comment on above:Performed By: #### BCID2 ####[facility] Zsnrmjbsmc844[address] [place], [place] [address]Dr. Yilan ChangE. faecalisNot detectedNormal NOT DETECTEDThe [facility] CenterComment on above:Performed By: #### BCID2 ####[facility] Yvdzhawvow979[address] [place], [place] [address]Dr. Yilan ChangE. faeciumNot detectedNormalNOT DETECTEDThe [facility] CenterCominsight surgical hospital on above:Performed By: #### BCID2 ####[facility] Jkcydfdyaf814[address] [place], [place] [address]Dr. Yilan ChangEnterobacteriaceaeNot detectedNormalNOT DETECTEDThe [facility] CenterComment on above:Performed By: #### BCID2 ####[facility] Seqohmkmyx789196 [address] [place], [place] [address]Dr. Yilan ChangEscherichia coliNot detectedNormalNOT DETECTEDThe [facility] Comment on above:Performed By: #### BCID2 ####[facility] Ytbxvxxvbr1988[address] [place], [place] [address]Dr. Yilan ChangH. influenzaeNot detected NormalNOT DETECTEDThe [facility] CenterCominsight surgical hospital on above:Performed By: #### BCID2 ####[facility] Ydjlcxhbvy1764[address] [place], [place] [address]Dr. Yilan ChangIMP Resistant GeneNot ApplicableNormalNOT DETECTEDThe [facility] CenterCominsight surgical hospital on above:Performed By: #### BCID2 ####[facility] Aqftiqieim[address] [place], [place] [address]Dr. Abiel ClementK. oxytocaNot detectedNormalNOT DETECTEDThe [facility] HospitalComment on above:Performed By: #### BCID2 ####[facility] Nczobhbfta5890[address] [place], [place] [address]Dr. Abiel ClementK. pneumoniaeNot detectedNormalNOT DETECTEDThe [facility] HospitalComment on above:Performed By: #### BCID2 ####[facility] Dltwbmonhf947[address] [place], [place] [address]Dr. Abiel ClementKlebsiella aerogenesNot detectedNormalNOT DETECTEDThe [facility] HospitalComment on above: Performed By: #### BCID2 ####[facility] Shkitmrdak5810[address] [place], [place] [address]Dr. Abiel ClementKPC Resistant GeneNot detectedNormalNOT DETECTEDThe [facility] CenterComment on above:Performed By: #### BCID2 ####[facility] Basqjhuhup334[address] [place], [place] [address]Dr. Abiel ClementList. monocytogenesNot detectedNormalNOT DETECTEDThe [facility] CenterComment on above:Performed By: #### BCID2 ####[facility] Noqqmlrkrw0045[address] [place], [place] [address]Dr. Abiel ClementMcr-1 Resistant GeneNot ApplicableNormalNOT DETECTEDThe [facility] CenterCominsight surgical hospital on above:Performed By: #### BCID2 ####[facility] Yyrnlpputg6423[address] [place], [place] [address]Dr. Abiel ChangmecA/CNot ApplicableNormalNOT DETECTED The [facility] HospitalCominsight surgical hospital on above:Performed By: #### BCID2 ####[facility] Stajyhqfwe240[address] [place], [place] [address]Dr. Abiel Clement mecA/C MREJNot ApplicableNormalNOT DETECTEDThe [facility] CenterCominsight surgical hospital on above:Performed By: #### BCID2 ####[facility] Qcbtzyfrvp715[address] [place], [place] [address]Dr. Abiel ClementN. meningitidisNot detectedNormalNOT DETECTEDThe [facility] CenterCominsight surgical hospital on above:Performed By: #### BCID2 ####[facility] Nixzmvnpme[address] [place] [address]Dr. Yilan ChangNDM Resistant GeneNot ApplicableNormalNOT DETECTEDThe [facility] CenterComment on above:Performed By: #### BCID2 ####[facility] Gzgpllmkwy035[address] [place] [address]Dr. Yilan AqpgpMmj-27-zigdAng ApplicableNormalNOT DETECTEDThe [facility] CenterComment on above:Performed By: #### BCID2 ####[facility] Gmzclucwuc7[address] [place] [address]Dr. Yilan ChangProteusNot detectedNormalNOT DETECTEDThe [facility] Comment on above:Performed By: #### BCID2 ####[facility] Gmugaoopie5260[address] [place], [place] [address]Dr. Yiviviana ClementPseud. aeruginosaNot detected NormalNOT DETECTEDThe [facility] CenterComment on above:Performed By: #### BCID2 ####[facility] Wyaekhmrcb283[address] [place], [place] [address]Dr. Yiviviana ChangS. maltophiliaNot detectedNormalNOT DETECTEDThe [facility] Comment on above:Performed By: #### BCID2 ####[facility] Yanviqgeej2967[address] [place], [place] [address]Dr. Yilan ChangSalmonellaNot detectedNormal NOT DETECTEDThe [facility] CenterComment on above:Performed By: #### BCID2 ####[facility] Utagwrwhma6410[address] [place], [place] [address]Dr. Suyapalan ChangSeratia marcescensNot detectedNormalNOT DETECTEDThe [facility] Comment on above:Performed By: #### BCID2 ####[facility] Piielpsmob[address] [place], [place] [address]Dr. Yilan UrbanoSite:R A/cNormalThe [facility] CenterComment on above:Performed By: #### BCID2 ####[facility] Bulnkxjsxu285[address] [place], [place] [address]Dr. Abiel ClementStaph. aureus Not detectedNormalNOT DETECTEDThe [facility] CenterComment on above:Performed By: #### BCID2 ####[facility] Zgkhpdtfia916[address] [place], [place] [address]Dr. Yilan UrbanoStaph. epidermidisNot detectedNormalNOT DETECTEDThe [facility] CenterComment on above:Performed By: #### BCID2 ####[facility] Kfbmaqmcsz130[address] [place], [place] [address]Dr. Yilan UrbanoStaph. lugdunensisNot detectedNormalNOT DETECTEDThe [facility] CenterCominsight surgical hospital on above: Performed By: #### BCID2 ####[facility] Ffxhmufknq722[address] [place], [place] [address]Dr. Yilan ChangStaphylococcusNot detectedNormalNOT DETECTEDThe [facility] CenterCominsight surgical hospital on above:Performed By: #### BCID2 ####[facility] Ehgncnepgt8888[address] [place], [place] [address]Dr. Suyapalan UrbanoStrep. agalactiaeNot detectedNormalNOT DETECTEDThe [facility] Comment on above:Performed By: #### BCID2 ####[facility] Oyydrmyphq474[address] [place], [place] [address]Dr. Abiel ClementStrep. pneumoniaeNot detected NormalNOT DETECTEDThe [facility] CenterCominsight surgical hospital on above:Performed By: #### BCID2 ####[facility] Tmitovegrh850[address] [place], [place] [address]Dr. Yilan UrbanoStrep. pyogenesNot detectedNormalNOT DETECTEDThe [facility] Comment on above:Performed By: #### BCID2 ####[facility] Pjdfvdpact978[address] [place], [place] [address]Dr. Yilan UrbanoStreptococcusDetectedAbnormal NOT DETECTEDThe [facility] CenterComment on above:Performed By: #### BCID2 ####[facility] Mxpymmttga735[address] [place], [place] [address]Dr. Abiel ClementvanA/B Resist. GeneNot detectedNormalNOT DETECTEDThe [facility] CenterCominsight surgical hospital on above:Performed By: #### BCID2 ####[facility] Njfngfsidk2080[address] [place], [place] [address]Dr. Suyapalan ChangVIM Resistant GeneNot ApplicableNormalNOT DETECTEDThe [facility] CenterCominsight surgical hospital on above: Performed By: #### BCID2 ####[facility] Sritkvwbzn911[address] [place], [place] [address]Dr. Abiel ChangBNPon 05-08-4386Znnkbdyuwwv peptide B (Bld) [Mass/Vol]127.0 pg/mLNormal<=900.0The [facility] CenterComment on above: Performed By: #### BNP, CMP, HSTROPN ####[facility] Wxtcgmildd9[address] [place], [place] [address]Dr. Yilan ChangCBC AUTO DIFFon 19-14-3469QKBG #0.1 103/ulNormal0.0-0.1The [facility] CenterComment on above:Performed By: #### CBC ####[facility] Ljfbsdtytx925[address] [place], [place] [address]Dr. Yilan ChangBasophils/100 WBC (Bld)0.6 %Normal0.2-2.0The [facility] on above:Performed By: #### CBC ####[facility] Iixyocplon962[address] [place], [place] [address]Dr.Yilan ChangEO #0.3 103/ulNormal0.0-0.7The [facility] CenterCominsight surgical hospital on above:Performed By: #### CBC ####[facility] Eczfxwtqem4928[address] [place], [place] [address]Dr.Yilan ChangEosinophils/100 WBC (Bld)2.8 %Normal0.9-7.0The [facility] on above:Performed By: #### CBC ####[facility] Raditrttgz680[address] [place], [place] [address]Dr.Suyapalan ChangErythrocyte distribution width (RBC) [Ratio]12.9 %Normal 11.0-15.0The [facility] CenterComment on above:Performed By: #### CBC ####[facility] Weuvrmmldp1614[address] [place], [place] [address]Dr. Abiel ChangHematocrit (Bld) [Volume fraction]38.7 %Gkcrkx73.0-48.0The [facility] CenterComment on above:Performed By: #### CBC ####[facility] Fdzgcdnkvn74[address] [place] [address]Dr.Abiel ChangHemoglobin (Bld) [Mass/Vol]12.5 g/tORqnoie89.0-16.0The [facility] CenterComment on above: Performed By: #### CBC ####[facility] Pghoembbch827[address] [place], [place] [address]Dr.Abiel ChangIG #0.03 10e3/ulNormal0.00-0.03The [facility] CenterComment on above:Performed By: #### CBC ####[facility] Qirkroenwt413[address] [place], [place] [address]Dr.Abiel ChangIG %0.3 %Normal 0.0-0.5The [facility] CenterComment on above:Performed By: #### CBC ####[facility] Shkcehubeg8517[address] [place], [place] [address]Dr.Abiel ChangLYMPH #1.6 103/ulNormal1.2-3.8The [facility] CenterComment on above:Performed By: #### CBC ####[facility] Uqzjwrylqm472[address] [place], [place] [address]Dr.Abiel ClementLymphocytes/100 WBC (Bld)15.0 %Critically low20.5-60.0The [facility] CenterComment on above:Performed By: #### CBC ####[facility] Vadmbmfbco836[address] [place], [place] [address]Dr.Abiel ClementMANUAL DIFF REQ NONormalThe [facility] CenterComment on above:Performed By: #### CBC ####[facility] Jalzpmbxxp727[address] [place], [place] [address]Dr. Suyapaviviana ClementMCH (RBC) [Entitic mass]28.9 suTmvlis71.7-34.0The [facility] Comment on above:Performed By: #### CBC ####[facility] Kzmrjrcvgc0638[address] [place], [place] [address]Dr.Suyapaviviana ClementMCHC (RBC) [Mass/Vol]32.3 g/dL Jpqpvo60.9-35.2The [facility] CenterComment on above:Performed By: #### CBC ####[facility] Bqrusvdbql100[address] [place] [address]Dr. Abiel UrbanoMCV (RBC) [Entitic vol]89.6 nKLnyphf44.0-99.0The [facility] Comment on above:Performed By: #### CBC ####[facility] Phbiyqznqh0788[address] [place], [place] [address]Dr.Suyapaviviana ClementMONO #0.8 103/ulNormal0.3-0.8 The [facility] CenterComment on above:Performed By: #### CBC ####[facility] Ktjukqsbbn756[address] [place], [place] [address]Dr.Suyapaviviana Clement Monocytes/100 WBC (Bld)7.2 %Normal1.7-12.0The [facility] CenterComment on above: Performed By: #### CBC ####[facility] Zwfirfmyde599[address] [place], [place] [address]Dr.Abiel ClementNEUT #7.9 103/ulCritically high1.4-6.5 The [facility] CenterComment on above:Performed By: #### CBC ####[facility] Yjbcjxnllr807[address] [place], [place] [address]Dr.Abiel Clement Neutrophils/100 WBC (Bld)74.1 %Htxgcz81.0-75.0The [facility] CenterComment on above:Performed By: #### CBC ####[facility] Gwmhhcxvzo297[address] [place], [place] [address]Dr.Abiel ClementPlatelet mean volume (Bld) [Entitic vol] 10.9 fLNormal9.5-13.5The [facility] CenterComment on above:Performed By: #### CBC ####[facility] Wxxpdiqces6926[address] [place], [place] [address]Dr. Abiel DyxiuRDK947 103/olLnkqxp618-700Nvq [facility] CenterComment on above: Performed By: #### CBC ####[facility] Ulurrdoxso938[address] [place], [place] [address]Dr.Abiel ClementRBC4.32 106/ulNormal4.20-5.40The [facility] Hospitalment on above:Performed By: #### CBC ####[facility] X[address]bf[address]cv[address] [place] [address]Dr.Abiel JyhzaIGQ24.6 103/ul Normal4.0-11.0The [facility] on above:Performed By: #### CBC ####[facility] Oqflxobzvh2[address] [place] [address]Dr. Abiel ClementCovid-19 PCR (CVDTB)on 54-45-8149EGNX-CoV-2 (COVID-19) RNA CLARIBEL+probe Ql (Unsp spec)Not detectedNormalNOT DETECTEDThe [facility] on above:Result Comment: When diagnostic testing is negative, the [...] for this test is supported by the [employer] of Health and Human Service's declaration that circumstances exist to justify the emergency use of in vitro diagnostics for the detection and/or diagnosis of the virus that causes COVID-19. This EUA will remain in effect for the duration of the COVID-19declaration justifying emergency of IVDs, unless it is terminated or revoked by the FDA (after which the test may no longer be used).Performed By: #### CVDTBH ####[facility] [address]mwqosxjgq[address] [place] [id number]. Abiel ChangLACTATE/LACTIC ACIDon 59-62-1090Brlkxfs [Moles/Vol]2.3 mmol/LCritically high0.4-1.9The [facility] on above:Performed By: #### LACT ####[facility] Pqwlyekdpd35[address] [place] [address]Dr. Suyapalan ChangLactate [Moles/Vol]3.3 mmol/LCritically high0.4-1.9The [facility] HospitalComment on above:Performed By: #### LACT ####[facility] V[address]zwhhtkae[address] [place] [address]Dr. Yilan ChangPROF 14(COMP METB)on 24-42-7547Ibihakp [Mass/Vol]3.0 g/dLCritically low3.4-5.0The [facility] CenterComment on above:Performed By: #### BNP, CMP, HSTROPN ####[facility] W[address]qltbx[address] [place] [address]Dr. Yilan ChangAlbumin/Globulin [Mass ratio]0.7 {ratio}NormalThe [facility] CenterComment on above:Performed By: #### BNP, CMP, HSTROPN ####[facility] Edkaxfvhhm[address] [place] [address]Dr. Yilan ChangALP [Catalytic activity/Vol]218 U/LCritically zlrl26-799Ggn [facility] CenterComment on above:Performed By: #### BNP, CMP, HSTROPN ####[facility] Azoktdimgl[address] [place], [place] [address]Dr. Yilan ChangALT [Catalytic activity/Vol]29 U/MTyumzy27-66Pdd [facility] CenterComment on above:Performed By: #### BNP, CMP, HSTROPN ####[facility] Fmkvakhfcx[address] [place] [address]Dr. Yilan ChangAnion gap [Moles/Vol]14.3 mmol/LNormal The [facility] CenterComment on above:Performed By: #### BNP, CMP, HSTROPN ####[facility] Pepfrawtbe[address] [place] [address]Dr. Yilan ChangAST [Catalytic activity/Vol]20 U/MEbyagv77-57Xfu [facility] Comment on above:Performed By: #### BNP, CMP, HSTROPN ####[facility] Yoesiujaee[address] [place] [address]Dr. Yilan ChangBilirubin [Mass/Vol]0.3 mg/dLNormal0.2-1.0The [facility] CenterComment on above:Performed By: #### BNP, CMP, HSTROPN ####[facility] Oxfflkaumi[address] [place], [place] [address]Dr. Yilan ChangCalcium [Mass/Vol]9.2 mg/dLNormal 8.5-10.1The [facility] CenterComment on above:Performed By: #### BNP, CMP, HSTROPN ####[facility] Kfylxhhrnk[address] [place], [place] [address]Dr. Yilan ChangChloride [Moles/Vol]98 mmol/PRutkeu08-428Bcx [facility] CenterComment on above:Performed By: #### BNP, CMP, HSTROPN ####[facility] Xdeokwfqdj[address] [place], [place] [address]Dr. Yilan ChangCO2 [Moles/Vol]26.5 mmol/JLlcvfb66.0-32.0The [facility] CenterComment on above: Performed By: #### BNP, CMP, HSTROPN ####[facility] Uynaeblken[address] [place], [place] [address]Dr. Yilan ChangCreatinine [Mass/Vol]1.10 mg/dL Critically high0.55-1.02The [facility] CenterComins[facility] on above:Performed By: #### BNP, CMP, HSTROPN ####[facility] Lysqyprpwh[address] [place], [place] [address]Dr. Yilan ChangEGFR-AF MARSHALLESE>60Normal>=60The [facility] on above:Performed By: #### BNP, CMP, HSTROPN ####[facility] Comsifrnpv[address] [place], [place] [address]Dr. Yilan ChangEGFR-NON AF JOVNBGRX01 mL/min/1.86o0Wbhswinyyf low>=60The [facility] on above:Performed By: #### BNP, CMP, HSTROPN ####[facility] Efexpkfekl88[address] [place], [place] [address]Dr. Yilan Clement Globulin (S) [Mass/Vol]4.3 g/dLNormalThe [facility] CenterCominsight surgical hospital on above: Performed By: #### BNP, CMP, HSTROPN ####[facility] [address]cvab[address] [place] [address]Dr. Yilan ChangGlucose [Mass/Vol]338 mg/dL Critically todp93-745Azg [facility] CenterComment on above:Performed By: #### BNP, CMP, HSTROPN ####[facility] [address] [place] [address]Dr. Yilan ChangPotassium [Moles/Vol]3.8 mmol/LNormal3.5-5.1[facility] above:Performed By: #### BNP, CMP, HSTROPN ####[facility] Vpighqruef[address] [place] [address]Dr. Yilan ChangProtein [Mass/Vol]7.3 g/dLNormal6.4-8.2The [facility] CenterComment on above:Performed By: #### BNP, CMP, HSTROPN ####[facility] Twvrckfalx[address] [place] [address]Dr. Yilan ChangSodium [Moles/Vol]135 mmol/LCritically lam915-117Etk [facility] CenterComment on above: Performed By: #### BNP, CMP, HSTROPN ####[facility] Ynwmhuscsf[address] [place] [address]Dr. Yilan ChangUrea nitrogen [Mass/Vol]23.0 mg/dL Critically high7.0-18.0The [facility] CenterComment on above:Performed By: #### BNP, CMP, HSTROPN ####[facility] [address]btjpmsa[address] [place] [address]Dr. Yilan ChangUrea nitrogen/Creatinine [Mass ratio]20.9 mg/mgNormal The [facility] CenterComment on above:Performed By: #### BNP, CMP, HSTROPN ####[facility] Ehjaexaccq[address] [place], [place] [address]Dr. Yilan ChangTROPONIN, HIGH SENSITIVITYon 17-79-2713NRBRWH8.8 pg/mLCritically low 4.0-51.3The [facility] CenterComment on above:Result Comment: CUT-OFF POINTS HAVE BEEN ESTABLISHED BASED ON THE FOURTH UNIVERSAL DEFINITIONS OF MY OCARDIALINFARCTION. THE UPPER REFERENCE LIMIT (URL) OF TROPONIN, DEFINED THE 99TH PERCENTILE OFcTnI DISTRIBUTION IN A REFERENCE POPULATION, HAS BEEN CONFIRMED THE DECISION THRESHOLDFOR MA DIAGNOSIS.Performed By: #### HSTROPN ####[facility] Ksjzaqpyxf[address] [place], [place] [address]Dr. Abiel ClementHSTROP4.0 pg/mLNormal4.0-51.3The [facility] CenterComment on above: Result Comment: CUT-OFF POINTS HAVE BEEN ESTABLISHED BASED ON THE FOURTH UNIVERSAL DEFINITIONS OF MYOCARDIALINFARCTION. THE UPPER REFERENCE LIMIT (URL) OF TROPONIN, DEFINED THE 99TH PERCENTILE OFcTnI DISTRIBUTION IN A REFERENCE POPULATION, HAS BEEN CONFIRMED THE DECISION THRESHOLDFOR MA DIAGNOSIS. Performed By: #### BNP, CMP, HSTROPN ####[facility] Okvztsbord7[address] [place], [place] [address]Dr. Suyapaviviana ChangXR CHEST 1 Von 44-97-4746LC CHEST [address]East [address] [facility] [place] 40-02-6349Xzwcgmufzgr peptide B (Bld) [Mass/Vol]2586.0 pg/mLCritically high<=900.0St. [facility] Hospitalment on above:Result Comment: repeatedPerformed By: #### CMP, BNP, HSTROPN ####[facility] Pjmqjyymbx[address] [place], [place] [address]Dr. Suyapaviviana ClementCBC AUTO DIFFon 38-15-8817NHGP #0.0 103/ulNormal0.0-0.1The [facility] CenterComment on above:Performed By: #### CBC ####[facility] Yyzwehavoe[address] [place], [place] [address]Dr.Abiel ClementBasophils/100 WBC (Bld)0.4 %Normal 0.2-2.0The [facility] Hospitalment on above:Performed By: #### CBC ####[facility] Hubopmvixq623[address] [place], [place] [address]Dr.Suyapalan ChangEO # 0.1 103/ulNormal0.0-0.7The [facility] CenterComment on above:Performed By: #### CBC ####[facility] Veyrhgjeed[address] [place], [place] [address]Dr. Yilan ChangEosinophils/100 WBC (Bld)1.8 %Normal0.9-7.0The [facility] Comment on above:Performed By: #### CBC ####[facility] Tnjnxrylks[address] [place], [place] [address]Dr.Yilan ChangErythrocyte distribution width (RBC) [Ratio]13.7 %Zvmhmr53.0-15.0The [facility] CenterComment on above: Performed By: #### CBC ####[facility] Uookdkkcoj[address] [place], [place] [address]Dr.Yilan ChangHematocrit (Bld) [Volume fraction]29.7 % Critically low36.0-48.0The [facility] CenterComment on above:Performed By: #### CBC ####[facility] Ikrcddklat[address] [place], [place] [address]Dr. Abiel ChangHemoglobin (Bld) [Mass/Vol]9.5 g/dLCritically low12.0-16.0The [facility] CenterComment on above:Performed By: #### CBC ####[facility] Qzkefffbcn[address] [place], [place] [address]Dr.Yilan ChangIG #0.02 10e3/ulNormal0.00-0.03The [facility] CenterComment on above:Performed By: #### CBC ####[facility] Nqfvofvpvj005[address] [place], [place] [address]Dr. Yilan ChangIG %0.3 %Normal0.0-0.5The [facility] CenterComment on above:Performed By: #### CBC ####[facility] Kaloffpkut25[address] [place], [place] [address]Dr.Yilan ChangLYMPH #1.6 103/ulNormal1.2-3.8The [facility] Comment on above:Performed By: #### CBC ####[facility] Wblfdivbng304[address] [place], [place] [address]Dr.Yilan ChangLymphocytes/100 WBC (Bld)20.1 %Critically low20.5-60.0The [facility] CenterComment on above:Performed By: #### CBC ####[facility] Gzadaddazu390[address] [place], [place] [address]DrNarciso ClementMANUAL DIFF REQNONormalThe [facility] CenterComment on above: Performed By: #### CBC ####[facility] Hrbmlwrmne[address] [place], [place] [address]Dr.Abiel ClementH (RBC) [Entitic mass]29.6 pgNormal 26.7-34.0The [facility] HospitalComment on above:Performed By: #### CBC ####[facility] Nxfnwckcgg007[address] [place], [place] [address]Dr. Abiel ClementHC (RBC) [Mass/Vol]32.0 g/oUMmimte18.9-35.2The [facility] Comment on above:Performed By: #### CBC ####[facility] Otelmgcqpy537[address] [place], [place] [address]Dr.Abiel ClementV (RBC) [Entitic vol]92.5 fL Ozbylh43.0-99.0The [facility] CenterComment on above:Performed By: #### CBC ####[facility] Pvetdcgwln[address] [place], [place] [address]DrKasia Sanderson #0.6 103/ulNormal0.3-0.8The [facility] CenterComment on above: Performed By: #### CBC ####[facility] Hraxojhkce758[address] [place], [place] [address]DrNarciso ClementMonocytes/100 WBC (Bld)7.1 %Normal 1.7-12.0The [facility] CenterComment on above:Performed By: #### CBC ####[facility] Cyfxdkwwvv065[address] [place], [place] [address]DrKasia FieldsUT #5.5 103/ulNormal1.4-6.5The [facility] CenterComment on above: Performed By: #### CBC ####[facility] Mdzertfrkn05[address] [place], [place] [address]Dr.Yilan ChangNeutrophils/100 WBC (Bld)70.3 %Normal 43.0-75.0The [facility] CenterComment on above:Performed By: #### CBC ####[facility] [address]qord[address] [place] [address]Dr. Abiel ClementPlatelet mean volume (Bld) [Entitic vol]10.5 fLNormal9.5-13.5The [facility] CenterComment on above:Performed By: #### CBC ####[facility] [address]ys[address]zqo[address] [place] [address]Dr.Abiel ClementPLT250 103/ul Tzgobv899-168Bpb [facility] CenterComment on above:Performed By: #### CBC ####[facility] Darscsvydg64[address] [place], [place] [address]Dr. Abiel ClementRBC3.21 106/ulCritically low4.20-5.40The [facility] CenterComment on above:Performed By: #### CBC ####[facility] Mqroljsxdr11[address] [place], [place] [address]Dr.Abiel ClementWBC7.9 103/ulNormal4.0-11.0The [facility] CenterComment on above:Performed By: #### CBC ####[facility] Rcpasbgmba92[address] [place], [place] [address]Dr.Abiel ClementPROF 14(COMP METB)on 54-28-0238Hzecrhq [Mass/Vol]2.2 g/dLCritically low3.4-5.0The [facility] CenterComment on above:Performed By: #### CMP, BNP, HSTROPN ####[facility] Nkvecgpkqn29[address] [place], [place] [address]Dr. Abiel Clement Albumin/Globulin [Mass ratio]0.6 {ratio}NormalThe [facility] CenterCominsight surgical hospital on above:Performed By: #### CMP, BNP, HSTROPN ####[facility] Dzakhqkgvv7359[address] [place], [place] [address]Dr. Abiel ClementALP [Catalytic activity/Vol] 112 U/MZphajs03-042Iis [facility] CenterComment on above:Performed By: #### CMP, BNP, HSTROPN ####[facility] Kmx[address]zepwba[address] [place] [address]Dr. Yilan ChangALT [Catalytic activity/Vol]19 U/VBxqwxl75-84Kuq [facility] CenterComment on above:Performed By: #### CMP, BNP, HSTROPN ####[facility] Iemddvvbfz4[address] [place], [place] [address]Dr. Yilan ChangAnion gap [Moles/Vol]12.2 mmol/LNormalThe [facility] CenterComment on above:Performed By: #### CMP, BNP, HSTROPN ####[facility] Ljcncypuxn[address] [place], [place] [address]Dr. Yilan ChangAST [Catalytic activity/Vol]15 U/LNormal 15-37The [facility] Hospitalment on above:Performed By: #### CMP, BNP, HSTROPN ####[facility] Sckcezuird4530[address] [place], [place] [address]Dr. Yilan ChangBilirubin [Mass/Vol]0.3 mg/dLNormal0.2-1.0The [facility] Comment on above:Performed By: #### CMP, BNP, HSTROPN ####[facility] Vhwlegfwmb[address] [place], [place] [address]Dr. Yilan ChangCalcium [Mass/Vol]8.6 mg/dLNormal8.5-10.1The [facility] Hospitalment on above:Performed By: #### CMP, BNP, HSTROPN ####[facility] Jcwjacwfdu504[address] [place], [place] [address]Dr. Yilan ChangChloride [Moles/Vol]104 mmol/LNormal 98-107The [facility] Hospitalment on above:Performed By: #### CMP, BNP, HSTROPN ####[facility] Hjqarldfnw8[address] [place], [place] [address]Dr. Yilan ChangCO2 [Moles/Vol]25.3 mmol/FSxiasm92.0-32.0The [facility] CenterComment on above:Performed By: #### CMP, BNP, HSTROPN ####[facility] Exhsxzxlgy[address] [place] [address]Dr. Yilan ChangCreatinine [Mass/Vol]0.98 mg/dLNormal0.55-1.02The [facility] CenterComment on above: Performed By: #### CMP, BNP, HSTROPN ####[facility] Kw[address]wibnyd[address] [place] [address]Dr. Yilan ChangEGFR-AF MARSHALLESE>60Normal>=60The [facility] CenterComment on above:Performed By: #### CMP, BNP, HSTROPN ####[facility] Y[address]udgffago[address] [place] [address]Dr. Yilan ChangEGFR-NON AF QQKBAEYO30 mL/min/1.97y7Ydrtopiyzw low>=60The [facility] CenterComment on above:Performed By: #### CMP, BNP, HSTROPN ####[facility] Nsoejrlhfg[address] [place], [place] [address]Dr. Yilan Clement Globulin (S) [Mass/Vol]3.7 g/dLNormalThe [facility] CenterComment on above: Performed By: #### CMP, BNP, HSTROPN ####[facility] Sbmhrwcafi[address] [place], [place] [address]Dr. Yilan ChangGlucose [Mass/Vol]279 mg/dL Critically nbzi20-194Bov [facility] CenterComment on above:Performed By: #### CMP, BNP, HSTROPN ####[facility] Ukxzwutfsv[address] [place], [place] [address]Dr. Yilan ChangPotassium [Moles/Vol]3.5 mmol/LNormal3.5-5.1The [facility] CenterComment on above:Performed By: #### CMP, BNP, HSTROPN ####[facility] Sglplkvsre[address] [place], [place] [address]Dr. Yilan ChangProtein [Mass/Vol]5.9 g/dLCritically low6.4-8.2The [facility] Comment on above:Performed By: #### CMP, BNP, HSTROPN ####[facility] Ryvirnsbld[address] [place] [address]Dr. Abiel ClementSodium [Moles/Vol]138 mmol/VTizpbb038-159Xup [facility] CenterComment on above: Performed By: #### CMP, BNP, HSTROPN ####[facility] Rltuyzrhat[address] [place] [address]Dr. Abiel ChangUrea nitrogen [Mass/Vol]23.0 mg/dL Critically high7.0-18.0The [facility] CenterComment on above:Performed By: #### CMP, BNP, HSTROPN ####[facility] Orgdknjjym[address] [place] [address]Dr. Suyapalan ChangUrea nitrogen/Creatinine [Mass ratio]23.5 mg/mgNormal The [facility] CenterComment on above:Performed By: #### CMP, BNP, HSTROPN ####[facility] Dzqvhavdbe[address] [place], [place] [address]Dr. Abiel UrbanoTROPONIN, HIGH SENSITIVITYon 13-84-5588PGWPVZ2.0 pg/mLNormal4.0-51.3 The [facility] CenterComment on above:Result Comment: CUT-OFF POINTS HAVE BEEN ESTABLISHED BASED ON THE FOURTH UNIVERSAL DEFINITIONS OF MYOCARDIALINFARCTION. THE UPPER REFERENCE LIMIT (URL) OF TROPONIN, DEFINED THE 99TH PERCENTILE OFcT nI DISTRIBUTION IN A REFERENCE POPULATION, HAS BEEN CONFIRMED THE DECISION THRESHOLDFOR MA DIAGNOSIS.Performed By: #### CMP, BNP, HSTROPN ####[facility] Ikrkifnecp[address] [place], [place] [address]Dr. Abiel UrbanoBNPon 52-47-8507Agsivppqdoc peptide B (Bld) [Mass/Vol]3438.0 pg/mLCritically high <=900.0The [facility] on above:Performed By: #### HSTROPN, BNP, CMP ####[facility] Urbkpvriwx[address] [place], [place] [address]Dr. Abiel ClementCBC AUTO DIFFon 07-01-0579WMMS #0.0 103/ulNormal0.0-0.1The [facility] CenterComment on above:Performed By: #### CBC ####[facility] Zddkdvtsym[address] [place] [address]Dr.Abiel ChangBasophils/100 WBC (Bld)0.4 %Normal0.2-2.0The [facility] CenterComment on above:Performed By: #### CBC ####[facility] Lfgbwuydrf22[address] [place], [place] [address]Dr.Yilan ChangEO #0.1 103/ulNormal0.0-0.7The [facility] CenterComment on above:Performed By: #### CBC ####[facility] Icrkjeglqj504[address] [place], [place] [address]Dr.Suyapalan ChangEosinophils/100 WBC (Bld)0.9 %Normal 0.9-7.0The [facility] CenterComment on above:Performed By: #### CBC ####[facility] Gdwmqxdmiy209[address] [place], [place] [address]Dr.Abiel Clement Erythrocyte distribution width (RBC) [Ratio]13.5 %Syikei26.0-15.0The [facility] CenterComment on above:Performed By: #### CBC ####[facility] Bluznppmgr[address] [place], [place] [address]Dr.Abiel ChangHematocrit (Bld) [Volume fraction]29.5 %Critically low36.0-48.0The [facility] CenterComment on above:Performed By: #### CBC ####[facility] Akwmuxdsqm86[address] [place], [place] [address]Dr.Abiel ChangHemoglobin (Bld) [Mass/Vol]9.3 g/dL Critically low12.0-16.0The [facility] CenterComment on above:Performed By: #### CBC ####[facility] Midycvyzwp97[address] [place], [place] [address]Dr. Suyapalan ChangIG #0.07 10e3/ulCritically high0.00-0.03The [facility] CenterComment on above:Performed By: #### CBC ####[facility] Nckhsdnqem55[address] [place], [place] [address]Dr.Abiel ChangIG %0.7 %Critically high0.0-0.5The [facility] CenterComment on above:Performed By: #### CBC ####[facility] Wplhbmtnnw32[address] [place], [place] [address]Dr.Abiel ClementEKATERINAH #1.7 103/ulNormal1.2-3.8The [facility] CenterComment on above:Performed By: #### CBC ####[facility] Ulpquzkrru367[address] [place], [place] [address]Dr. Abiel ClementLymphocytes/100 WBC (Bld)17.0 %Critically low20.5-60.0The [facility] CenterComment on above:Performed By: #### CBC ####[facility] Bfuletrokv17[address] [place], [place] [address]Dr.Abiel UrbanoMANUAL DIFF REQ NONormalThe [facility] CenterComment on above:Performed By: #### CBC ####[facility] Nelobnzmkz1500[address] [place], [place] [address]Dr. Abiel ClementH (RBC) [Entitic mass]29.2 jsPrsbfv60.7-34.0The [facility] Comment on above:Performed By: #### CBC ####[facility] Gekyrwnviq007[address] [place], [place] [address]Dr.Abiel ClementHC (RBC) [Mass/Vol]31.5 g/dL Zcghkv38.9-35.2The [facility] CenterComment on above:Performed By: #### CBC ####[facility] Jmramtbodj699[address] [place], [place] [address]Dr. Abiel ClementV (RBC) [Entitic vol]92.5 kAMlcmif74.0-99.0The [facility] Comment on above:Performed By: #### CBC ####[facility] Odczzxkxmb12[address] [place], [place] [address]Dr.Abiel HuberO #0.9 103/ulCritically high0.3-0.8The [facility] CenterComment on above:Performed By: #### CBC ####[facility] Taftiibgwz177[address] [place], [place] [address]Dr. Abiel ClementMonocytes/100 WBC (Bld)9.1 %Normal1.7-12.0The [facility] Comment on above:Performed By: #### CBC ####[facility] Ikjpweneis[address] [place] [address]Dr.Abiel ClementNEUT #7.3 103/ulCritically high1.4-6.5The [facility] CenterComment on above:Performed By: #### CBC ####[facility] Roggnzldvx[address] [place], [place] [address]Dr. Abiel ChangNeutrophils/100 WBC (Bld)71.9 %Vjrout58.0-75.0The [facility] Comment on above:Performed By: #### CBC ####[facility] Agcogxmuss[address] [place], [place] [address]Dr.Abiel ClementPlatelet mean volume (Bld) [Entitic vol]11.0 fLNormal9.5-13.5The [facility] CenterComment on above: Performed By: #### CBC ####[facility] Yetwqzsxtp[address] [place], [place] [address]Dr.Abiel ZrykkDEU281 103/kxDvefhm167-710Zvl [facility] CenterComment on above:Performed By: #### CBC ####[facility] Odqmqvsmwj2214[address] [place], [place] [address]Dr.Abiel ChangRBC3.19 106/ul Critically low4.20-5.40The [facility] CenterComment on above:Performed By: #### CBC ####[facility] Psiuxgalau[address] [place], [place] [address]Dr. Abiel OqgbdQJT74.1 103/ulNormal4.0-11.0The [facility] CenterComment on above: Performed By: #### CBC ####[facility] Ocyzoxvbig[address] [place], [place] [address]Dr.Suyapaviviana [facility] GLUCOSEon 03-14-2022 Glucose [Mass/Vol]141 mg/dLCritically cbkq72-243Uum [facility] CenterComment on above:Performed By: #### POCGLUC ####[facility] Essvyxwjrs8[address] [place], [place] [address]Dr. Yilan ChangGlucose [Mass/Vol]182 mg/dLCritically yhmr21-923Woo [facility] CenterComment on above:Performed By: #### POCGLUC ####[facility] [address]qawebvw[address] [place] [address]Dr. Yilan ChangGlucose [Mass/Vol]235 mg/dLCritically tccy78-293Hdg [facility] Comment on above:Performed By: #### POCGLUC ####[facility] Qyvblhagrk[address] [place] [address]Dr. Yilan ChangGlucose [Mass/Vol]246 mg/dL Critically exhv40-067Lcm [facility] CenterComment on above:Performed By: #### POCGLUC ####[facility] Sueaytkask[address] [place] [address]Dr. Yilan ChangGlucose [Mass/Vol]256 mg/dLCritically lspp05-398Nau [facility] CenterComment on above:Performed By: #### POCGLUC ####[facility] Fkixaorgtl[address] [place], [place] [address]Dr. Yilan ChangGlucose [Mass/Vol]249 mg/dLCritically upxx24-443Aok [facility] CenterComment on above: Performed By: #### POCGLUC ####[facility] [address]rmqsleb[address] [place] [address]Dr. Yilan ChangPROF 14(COMP METB)on 86-14-4377Wqtmjgk [Mass/Vol]2.2 g/dLCritically low3.4-5.0The [facility] CenterComment on above: Performed By: #### HSTROPN, BNP, CMP ####[facility] Llpihfwdch[address] [place] [address]Dr. Yilan ChangAlbumin/Globulin [Mass ratio]0.6 {ratio}NormalThe [facility] CenterComment on above:Performed By: #### HSTROPN, BNP, CMP ####[facility] Sqdgtetuqz[address] [place] [address]Dr. Yilan ChangALP [Catalytic activity/Vol]114 U/RXeunse96-077Ule [facility] CenterComment on above:Performed By: #### HSTROPN, BNP, CMP ####[facility] Dfrlbxdmkr[address] [place] [address]Dr. Yilan ChangALT [Catalytic activity/Vol]20 U/RUrdhgf43-01Clt [facility] CenterComment on above: Performed By: #### HSTROPN, BNP, CMP ####[facility] Awocjsvgie[address] [place] [address]Dr. Yilan ChangAnion gap [Moles/Vol]9.7 mmol/L NormalThe [facility] CenterComment on above:Performed By: #### HSTROPN, BNP, CMP ####[facility] [address]ulyglni[address] [place], [place] [address]Dr. Yilan ChangAST [Catalytic activity/Vol]18 U/WRdwfpx36-89Imx [facility] Comment on above:Performed By: #### HSTROPN, BNP, CMP ####[facility] Drfkcsbrth[address] [place], [place] [address]Dr. Yilan ChangBilirubin [Mass/Vol]0.2 mg/dLNormal0.2-1.0The [facility] CenterComment on above:Performed By: #### HSTROPN, BNP, CMP ####[facility] Ilnzlmucof[address] [place], [place] [address]Dr. Yilan ChangCalcium [Mass/Vol]8.4 mg/dLCritically low8.5-10.1The [facility]ment on above:Performed By: #### HSTROPN, BNP, CMP ####[facility] Vravjoectt[address] [place], [place] [address]Dr. Yilan ChangChloride [Moles/Vol]105 mmol/BRpnczj97-372Nsw [facility] CenterComment on above:Performed By: #### HSTROPN, BNP, CMP ####[facility] Ioplpvwjlv[address] [place], [place] [address]Dr. Yilan ChangCO2 [Moles/Vol]26.1 mmol/YNibbxu54.0-32.0The [facility] CenterComment on above: Performed By: #### HSTROPN, BNP, CMP ####[facility] [address] [place] [address]Dr. Yilan ChangCreatinine [Mass/Vol]1.01 mg/dL Normal0.55-1.02The [facility] CenterComment on above:Performed By: #### HSTROPN, BNP, CMP ####[facility] Ws[address]klu[address] [place] [address]Dr. Yilan ChangEGFR-AF MARSHALLESE>60Normal>=60The [facility] CenterComment on above:Performed By: #### HSTROPN, BNP, CMP ####[facility] Owo[address]qvkhxj[address] [place] [address]Dr. Yilan ChangEGFR-NON AF VJNLSFXY15 mL/min/1.87p2Fvzjdjylww low>=60The [facility] CenterComment on above:Performed By: #### HSTROPN, BNP, CMP ####[facility] Lrlunwthtm[address] [place], [place] [address]Dr. Yilan ChangGlobulin (S) [Mass/Vol]3.4 g/dLNormalThe [facility] CenterComment on above:Performed By: #### HSTROPN, BNP, CMP ####[facility] Apxucfebdy[address] [place], [place] [address]Dr. Yilan ChangGlucose [Mass/Vol]267 mg/dLCritically puae66-832Oan [facility] Comment on above:Performed By: #### HSTROPN, BNP, CMP ####[facility] Xllklvrvrj[address] [place], [place] [address]Dr. Yilan ChangPotassium [Moles/Vol]3.8 mmol/LNormal3.5-5.1The [facility] CenterComment on above: Performed By: #### HSTROPN, BNP, CMP ####[facility] Wcguafytdo[address] [place], [place] [address]Dr. Yilan ChangProtein [Mass/Vol]5.6 g/dL Critically low6.4-8.2The [facility] CenterComment on above:Performed By: #### HSTROPN, BNP, CMP ####[facility] [address]pax[address] [place] [address]Dr. Abiel ChangSodium [Moles/Vol]137 mmol/SHpgikp618-926Hlp [facility] CenterComment on above:Performed By: #### HSTROPN, BNP, CMP ####[facility] Sognuyvhuc[address] [place] [address]Dr. Yilan ChangUrea nitrogen [Mass/Vol]28.0 mg/dLCritically high7.0-18.0The [facility] CenterComment on above:Performed By: #### HSTROPN, BNP, CMP ####[facility] Fbzfsvhomj9[address] [place], [place] [address]Dr. Yilan ChangUrea nitrogen/Creatinine [Mass ratio]27.7 mg/mgNormalThe [facility] CenterCominsight surgical hospital on above:Performed By: #### HSTROPN, BNP, CMP ####[facility] Zryhuodawb[address] [place], [place] [address]Dr. Suyapaviviana ChangTROPONIN, HIGH SENSITIVITYon 53-05-7519UMNMTX45.7 pg/mLNormal4.0-51.3The [facility] CenterComment on above: Result Comment: CUT-OFF POINTS HAVE BEEN ESTABLISHED BASED ON THE FOURTH UNIVERSAL DEFINITIONS OF MYOCARDIALINFARCTION. THE UPPER REFERENCE LIMIT (URL) OF TROPONIN, DEFINED THE 99TH PERCENTILE OFcTnI DISTRIBUTION IN A REFERENCE POPULATION, HAS BEEN CONFIRMED THE DECISION THRESHOLDFOR MA DIAGNOSIS. Performed By: #### HSTROPN, BNP, CMP ####[facility] Zvdqkrwprq[address] [place], [place] [address]Dr. Abiel ChangBNPon 63-55-5954Vbmnxnpcdjb peptide B (Bld) [Mass/Vol]1791.0 pg/mLCritically high<=900.0The [facility] on above:Performed By: #### CMP, BNP ####[facility] Xijrkvfodm[address] [place], [place] [address]Dr. Yilan ChangNatriuretic peptide B (Bld) [Mass/Vol]698.0 pg/mLNormal<=900.0The [facility] CenterCominsight surgical hospital on above: Performed By: #### BNP, CMP ####[facility] Unccgacqdd110[address] [place], [place] [address]Dr. Abiel ClementCBC AUTO DIFFon 19-48-9288RFUF #0.0 103/ulNormal0.0-0.1The [facility] CenterComment on above:Performed By: #### CBC ####[facility] Yvpjaxsqoc62[address] [place], [place] [address]Dr. Abiel ChangBasophils/100 WBC (Bld)0.2 %Normal0.2-2.0The [facility] CenterComment on above:Performed By: #### CBC ####[facility] Gxeqcyzelc79[address] [place], [place] [address]Dr.Yilan ChangEO #0.0 103/ulNormal0.0-0.7The [facility] CenterComment on above:Performed By: #### CBC ####[facility] Pvkjffnsys3201[address] [place], [place] [address]Dr.Abiel ChangEosinophils/100 WBC (Bld)0.0 %Critically low0.9-7.0The [facility] CenterComment on above: Performed By: #### CBC ####[facility] Pkmbnlypza420[address] [place], [place] [address]Dr.Abiel ChangErythrocyte distribution width (RBC) [Ratio]13.3 %Zyvhvs95.0-15.0The [facility] CenterComment on above:Performed By: #### CBC ####[facility] Eaxojdakkt9[address] [place], [place] [address]Dr.Abiel ChangHematocrit (Bld) [Volume fraction]33.4 %Critically low 36.0-48.0The [facility] CenterComment on above:Performed By: #### CBC ####[facility] Nxbbletzhf423[address] [place], [place] [address]Dr. Abiel ChangHemoglobin (Bld) [Mass/Vol]10.6 g/dLCritically low12.0-16.0[facility] HospitalComment on above:Performed By: #### CBC ####[facility] Iafvihjxjh[address] [place], [place] [address]Dr.Abiel ChangIG #0.13 10e3/ulCritically high0.00-0.03[facility] HospitalComment on above:Performed By: #### CBC ####[facility] Zvxyyncwde75[address] [place], [place] [address]DrNarciso ClementIG %0.8 %Critically high0.0-0.5The [facility] CenterComment on above:Performed By: #### CBC ####[facility] Qcelrhbrhi568[address] [place], [place] [address]Dr.Abiel ClementLYMPH #1.0 103/ulCritically low1.2-3.8 The [facility] CenterComment on above:Performed By: #### CBC ####[facility] Oauvortmzl[address] [place], [place] [address]DrNarciso Clement Lymphocytes/100 WBC (Bld)6.0 %Critically low20.5-60.0The [facility] Comment on above:Performed By: #### CBC ####[facility] Gsozmnugkd47[address] [place], [place] [address]Dr.Abiel ClementMANUAL DIFF REQNONormalThe [facility] CenterComment on above:Performed By: #### CBC ####[facility] Qfshopypod638[address] [place], [place] [address]Dr.Abiel ClementST. JOHN'[facility] (RBC) [Entitic mass]30.0 zdFkfzzz30.7-34.0The [facility] CenterComment on above: Performed By: #### CBC ####[facility] Ryvceonldy[address] [place], [place] [address]DrNarciso ClementHC (RBC) [Mass/Vol]31.7 g/dLNormal 29.9-35.2The [facility] CenterComment on above:Performed By: #### CBC ####[facility] Ngdmforjhe176[address] [place], [place] [address]DrKasia ClementV (RBC) [Entitic vol]94.6 kKShomtw65.0-99.0The [facility] Comment on above:Performed By: #### CBC ####[facility] Vlcumoapjq[address] [place], [place] [address]DrNarciso ClementMONO #1.4 103/ulCritically high0.3-0.8The [facility] CenterComment on above:Performed By: #### CBC ####[facility] Axcmjatmvw35[address] [place] [address]Dr. Abiel ChangMonocytes/100 WBC (Bld)8.9 %Normal1.7-12.0The [facility] Comment on above:Performed By: #### CBC ####[facility] Aky[address]ysfbd[address] [place] [address]Dr.Suyapalan ChangNEUT #13.3 103/ulCritically high1.4-6.5The [facility] HospitalComment on above:Performed By: #### CBC ####[facility] Nmstxxqude[address] [place], [place] [address]Dr. Suyapalan ChangNeutrophils/100 WBC (Bld)84.1 %Critically high43.0-75.0The [facility] CenterComment on above:Performed By: #### CBC ####[facility] Olrcqrkznf100[address] [place], [place] [address]Dr.Abiel ClementPlatelet mean volume (Bld) [Entitic vol]10.8 fLNormal9.5-13.5The [facility] CenterComment on above:Performed By: #### CBC ####[facility] Dtaaujmzwq7964[address] [place], [place] [address]Dr.Suyapalan VpwlpWMI893 103/ixBagghv053-846Prq [facility] CenterComment on above:Performed By: #### CBC ####[facility] Kbkvshjmfv[address] [place], [place] [address]Dr.Abiel ChangRBC3.53 106/ul Critically low4.20-5.40The [facility] CenterComment on above:Performed By: #### CBC ####[facility] Yuaifpknkd025[address] [place], [place] [address]Dr. Suyapalan JoigsZYB13.9 103/ulCritically high4.0-11.0The [facility] CenterComment on above:Performed By: #### CBC ####[facility] Xxantclzew[address] [place], [place] [address]Dr.Abiel ClementCBC W MANUAL DIFFon 22-99-5063VLNTYEOK LYMPH #NormalThe [facility] HospitalComment on above:Performed By: #### ROSA ####[facility] Ztgyylnnxz64[address] [place] [address]Dr. Yilan ChangATYPICAL LYMPH %NormalThe [facility] HospitalComment on above:Performed By: #### CBCALLY ####[facility] Mlwzjuavpx[address] [place], [place] [address]Dr. Yilan ChangBAND #0.8 103/ulCritically high0.0-0.3The [facility] HospitalComment on above:Performed By: #### ROSA ####[facility] Rcttmjvzxf360[address] [place], [place] [address]Dr. Yilan ChangBAND %6 % Critically high0-5The [facility] HospitalComment on above:Performed By: #### ROSA ####[facility] Mlblqjlclp[address] [place], [place] [address]Dr. Yilan ChangBASOM #0.00 103/ulNormal0.00-0.10The [facility] Comment on above:Performed By: #### ROSA ####[facility] Ulamlfjmhj287[address] [place], [place] [address]Dr. Yilan ChangBASOM %0.0 %Critically low 0.2-2.0The [facility] HospitalComment on above:Performed By: #### ROSA ####[facility] Tfmodkrggt[address] [place], [place] [address]Dr. Yilan ChangBLAST #NormalThe [facility] HospitalComment on above:Performed By: #### CBCALLY ####[facility] Kbmekqifqy[address] [place], [place] [address]Dr. Yilan ChangBLAST %NormalThe [facility] HospitalComment on above:Performed By: #### ROSA ####[facility] Ltiearlwge88[address] [place], [place] [address]Dr. Yilan ChangCORRECTED WBCNormal4.0-11.0The [facility] HospitalComment on above:Performed By: #### CBCALLY ####[facility] Lwzutfoypp70[address] [place] [address]Dr. Yilan ChangEOS #0.00 103/ulNormal0.00-0.70The [facility] CenterComment on above:Performed By: #### CBCALLY ####[facility] Wqhnjppeyi39[address] [place] [address]Dr. Yilan ChangEOS% 0.0 %Critically low0.9-7.0The [facility] CenterComment on above:Performed By: #### CBCALLY ####[facility] Vmmxwlhren74[address] [place] [address]Dr. Yilan SzukjSSS13.5 %Xaekkg49.0-48.0The [facility] CenterComment on above:Performed By: #### CBCALLY ####[facility] Sbsaodvezf79[address] [place] [address]Dr. Yilan LdwbnMXY59.5 g/kpDpafne36.0-16.0The [facility] CenterComment on above:Performed By: #### CBCALLY ####[facility] Avcsslshzk[address] [place], [place] [address]Dr. Yilan ChangLYMPHM #0.13 103/ulCritically low1.20-3.80The [facility] CenterComment on above:Performed By: #### CBCALLY ####[facility] Qnjjcjagyh[address] [place], [place] [address]Dr. Yilan ChangLYMPHM%1.0 %Critically low20.5-60.0The [facility] Comment on above:Performed By: #### CBCALLY ####[facility] Nhpjcsxrce95[address] [place] [address]Dr. Yilan DuqreUSJ17.3 erRqysde30.7-34.0The [facility] CenterComment on above:Performed By: #### CBCALLY ####[facility] Wpzqlffdmr[address] [place], [place] [address]Dr. Yilan ChangMCHC 32.5 g/olIynfgw12.9-35.2The [facility] CenterComment on above:Performed By: #### CBCALLY ####[facility] Zyezyqolzz[address] [place] [address]Dr. Yilan ZkxbaIPL30.4 tDKtetmp59.0-99.0The [facility] CenterComment on above:Performed By: #### CBCALLY ####[facility] Bbspdvnnws[address] [place] [address]Dr. Yilan ChangMETAMYELOCYTE #NormalMercy Health Willard Hospital HospitalComment on above:Performed By: #### CBCMAN ####[facility] Xlxqdvsfos70[address] [place] [address]Dr. Yilan ChangMETAMYELOCYTE %NormalEast [facility] City HospitalComment on above:Performed By: #### CBCALLY ####[facility] Fbdmhpvbnw87[address] [place], [place] [address]Dr. Yilan ChangMONOM#0.13 103/ulCritically low0.30-0.80The [facility] CenterComment on above:Performed By: #### CBCALLY ####[facility] Fiklqyxeas[address] [place], [place] [address]Dr. Yilan ChangMONOM%1.0 %Critically low1.7-12.0 The [facility] CenterComment on above:Performed By: #### CBCALLY ####[facility] Ebcwymfnsr[address] [place], [place] [address]Dr. Yilan ChangMPV 10.6 fLNormal9.5-13.5The [facility] CenterComment on above:Performed By: #### CBCALLY ####[facility] Jpcpgewwss50[address] [place], [place] [address]Dr. Yilan ChangMYELOCYTE #NormalEast [facility] City HospitalComment on above: Performed By: #### CBCALLY ####[facility] Xtwffunemv8480[address] [place], [place] [address]Dr. Yilan ChangMYELOCYTE %NormalThe [facility] Comment on above:Performed By: #### CBCALLY ####[facility] Wmskuuaksi3735[address] [place], [place] [address]Dr. Yilan ChangNRBCNormalThe [facility] CenterComment on above:Performed By: #### CBCMAN ####[facility] Swrclemjwk[address] [place] [address]Dr. Abiel ClementPLT307 103/ul Bjfpqd583-688Kxh [facility] CenterComment on above:Result Comment: Platelet clumps noted on diff. Automated Platelet count may be falsely decreasedPerformed By: #### CBCMAN ####[facility] Kfcahcutca[address] [place] [address]Dr. Abiel ClementRBC4.26 106/ulNormal4.20-5.40The [facility] Comment on above:Performed By: #### CBCMAN ####[facility] Yusprlfice[address] [place], [place] [address]Dr. Abiel ClementRDW13.3 %Hipgxp11.0-15.0The [facility] CenterComment on above:Performed By: #### CBCMAN ####[facility] Pivpfbcvtm06[address] [place], [place] [address]Dr. Abiel ClementSEG # 11.68 103/ulCritically high1.40-6.50The [facility] CenterComment on above: Performed By: #### CBCMAN ####[facility] Wptxetukyd28[address] [place], [place] [address]Dr. Abiel ClementSEG %92.0 %Critically high43.0-75.0The [facility] CenterComment on above:Performed By: #### CBCMAN ####[facility] Wlmuzppawf[address] [place], [place] [address]Dr. Abiel ChangWBC 12.7 103/ulCritically high4.0-11.0The [facility] CenterComment on above: Performed By: #### CBCMAN ####[facility] Gzneesnovm[address] [place], [place] [address]Dr. Abiel ClementCTA CHEST WO W CONon 95-41-6923YUX CHEST WO W CONNormalThe [facility] CenterCULTURE BLOODon 68-17-8750Xfcctkpgads examination of blood, cultureCulture Observations: NO GROWTH AT 5 DAYS.NormalThe [facility] CenterComment on above:Performed By: #### BLDCX2 ####[facility] Binscjopbx[address] [place], [place] [address]Dr. Abiel UrbanoMicroscopic examination of blood, cultureCulture Observations: NO GROWTH AT 5 DAYS.NormalEast Liverpool City HospitalComment on above:Performed By: #### BLDCX1 ####[facility] [address]hndngv[address] [place], [place] [address]Jr. Abiel UrbanoCovid-19 PCR (CVDENCOMPASS [facility])on 36-31-4993WGGC-CoV-2 (COVID-19) RNA CLARIBEL+probe Ql (Unsp spec)Not detectedNormalNOT DETECTEDThe [facility] Comment on above:Result Comment: When diagnostic testing is negative, the possibility of a false negative should be considered inthe context of a patient's recent exposures and the presence of clinical signs and sympt omsconsistent with SARS-CoV-2.This test is not yet approved or cleared by the [place] FDA. When there are no FDA-approved or cleared tests available, and other criteria are met, FDA can make tests available under an emergency access mechanism called an Emergency Use Authorization (EUA). The EUA for this test is supported by the [place] of Health and Human Service's declaration that circumstances exist to justify the emergency use of in vitro diagnostics for the detection and/or diagnosis of the virus that causes COVID-19. This EUA will remain in effect for the duration of the COVID-19declaration justifying emergency of IVDs, unless it is terminated or revoked by the FDA (after which the test may no longer be used).Performed By: #### CVDTBH ####[facility] Whzlmwjuxn[address] [place], [place] [address]Ik. Abiel ClementD-DIMERon 11-16-2523E-DIMER2.68 mg/L FEUCritically high<=0.59The [facility] CenterComment on above:Performed By: #### DDIM ####[facility] Awaltkgqkm15[address] [place], [place] [address]Vd. Abiel ChangD-DIMER COMMENTSSEE BELOWNormalThUpper Valley Medical CenterComment on above:Result Comment: Increases in D-Dimer concentration observed with thromboembolic events [...] DIC, trauma, post-surgery, diabetes, thrombolytic or anticoagulant the rapy, stress, and generalized hospitalization.Performed By: #### DDIM ####[facility] Uxrmodlrwz[address] [place], [place] [address]Dr. Suyapalan ChangLACTATE/LACTIC ACIDon 99-43-1759Xjiwpgt [Moles/Vol]1.6 mmol/LNormal 0.4-1.9The [facility] CenterComment on above:Performed By: #### LACT ####[facility] Jvgcilmdxp[address] [place], [place] [address]Dr. Yilan ChangLactate [Moles/Vol]2.0 mmol/LCritically high0.4-1.9The [facility] CenterComment on above:Performed By: #### LACT ####[facility] Ptgshiqyyt308[address] [place], [place] [address]Dr. Abiel [facility] OF CARE GLUCOSEon 61-07-3923Jnltzjh [Mass/Vol]359 mg/dLCritically zkmb04-109IftEast Liverpool City HospitalComment on above:Performed By: #### POCGLUC ####[facility] Ldpbnwylip09[address] [place], [place] [address]Dr. Abiel ChangGlucose [Mass/Vol]428 mg/dLCritically qnra63-937YnwEast Liverpool City HospitalComment on above: Performed By: #### POCGLUC ####[facility] Kodcwmfnaf[address] [place], [place] [address]Dr. Yilan ChangGlucose [Mass/Vol]461 mg/dLCritically rhij05-798LgeEast Liverpool City HospitalComment on above:Performed By: #### POCGLUC ####[facility] Bbnnvvqkwj57[address] [place], [place] [address]Dr. Yilan ChangGlucose [Mass/Vol]494 mg/dLCritically sbjd48-827GmbEast Liverpool City Hospital Comment on above:Performed By: #### POCGLUC ####[facility] Gcdscdjtic049[address] [place], [place] [address]Dr. Yilan ChangPROF 14(COMP METB)on 80-76-6113Jlkafjg [Mass/Vol]2.4 g/dLCritically low3.4-5.0The [facility] Comment on above:Performed By: #### CMP, BNP ####[facility] Vawswpoqxo[address] [place] [address]Dr. Abiel Clement Albumin/Globulin [Mass ratio]0.6 {ratio}NormalThe [facility] CenterComment on above:Performed By: #### CMP, BNP ####[facility] Uhpuulnnai65[address] [place] [address]Dr. Abiel ChangALP [Catalytic activity/Vol]128 U/L Critically xehw67-331Htw [facility] CenterComment on above:Performed By: #### CMP, BNP ####[facility] Hoqpgiyjaj46[address] [place], [place] [address]Dr. Abiel ClementALT [Catalytic activity/Vol]17 U/FZavvmh98-07Mqc [facility] CenterComment on above:Performed By: #### CMP, BNP ####[facility] Ogropdqyrh[address] [place], [place] [address]Dr. Abiel ClementAnion gap [Moles/Vol]13.9 mmol/LNormalThe [facility] CenterComment on above:Performed By: #### CMP, BNP ####[facility] Cubfeojkfv499[address] [place], [place] [address]Dr. Abiel ChangAST [Catalytic activity/Vol]26 U/VUfgtpa17-57Pcv [facility] CenterComment on above:Performed By: #### CMP, BNP ####[facility] Habibbknoc[address] [place], [place] [address]Dr. Abiel Clement Bilirubin [Mass/Vol]0.5 mg/dLNormal0.2-1.0The [facility] CenterComment on above: Performed By: #### CMP, BNP ####[facility] Uugthksxtb23[address] [place], [place] [address]Dr. Abiel ChangCalcium [Mass/Vol]8.3 mg/dLCritically low8.5-10.1The [facility] CenterComment on above:Performed By: #### CMP, BNP ####[facility] Qtzroizhei9[address] [place] [address]Dr. Yilan ChangChloride [Moles/Vol]99 mmol/QXxzomt39-210Nwi [facility] CenterComment on above:Performed By: #### CMP, BNP ####[facility] Tkazoijdpx63[address] [place], [place] [address]Dr. Yilan ChangCO2 [Moles/Vol]23.4 mmol/LNormal 21.0-32.0The [facility] CenterComment on above:Performed By: #### CMP, BNP ####[facility] Bnqqtkxsnp[address] [place], [place] [address]Dr. Yilan ChangCreatinine [Mass/Vol]1.19 mg/dLCritically high0.55-1.02The [facility] on above:Performed By: #### CMP, BNP ####[facility] Gekoiqjkju[address] [place], [place] [address]Dr. Yilan ChangEGFR-AF HFMUCIUB19 mL/min/1.48v0Gjsulifbxf low>=60The [facility] CenterComment on above: Performed By: #### CMP, BNP ####[facility] Rhsynihmpc[address] [place], [place] [address]Dr. Yilan ChangEGFR-NON AF CQMOTKNQ46 mL/min/1.73m2 Critically low>=60The [facility] on above:Performed By: #### CMP, BNP ####[facility] Ldnlxkfvtd[address] [place], [place] [address]Dr. Yilan ChangGlobulin (S) [Mass/Vol]3.7 g/dLNormalThe [facility] CenterCominsight surgical hospital on above:Performed By: #### CMP, BNP ####[facility] Snstoddjja58[address] [place], [place] [address]Dr. Yilan ChangGlucose [Mass/Vol]447 mg/dL Critically pshp73-629Epe [facility] on above:Performed By: #### CMP, BNP ####[facility] Hldsnkkftz[address] [place], [place] [address]Dr. Yilan ChangPotassium [Moles/Vol]5.3 mmol/LCritically high3.5-5.1The [facility] HospitalComment on above:Performed By: #### CMP, BNP ####[facility] [facility] Eljvdzqvcb[address] [place], [place] [address]Dr. Yilan Clement Protein [Mass/Vol]6.1 g/dLCritically low6.4-8.2The [facility] CenterComment on above:Performed By: #### CMP, BNP ####[facility] Pttsebhvxp8[address] [place], [place] [address]Dr. Yilan ChangSodium [Moles/Vol]131 mmol/LCritically oum906-173Vkq [facility] CenterComment on above:Performed By: #### CMP, BNP ####[facility] Mckhzzvmca433[address] [place], [place] [address]Dr. Yilan ChangUrea nitrogen [Mass/Vol]36.0 mg/dLCritically high7.0-18.0The [facility] CenterComment on above:Performed By: #### CMP, BNP ####[facility] Cabieggqot[address] [place], [place] [address]Dr. Yilan ChangUrea nitrogen/Creatinine [Mass ratio]30.3 mg/mgNormalThe [facility] CenterComment on above:Performed By: #### CMP, BNP ####[facility] Pzyjevlvow431[address] [place], [place] [address]Dr. Yilan ChangAlbumin [Mass/Vol]3.1 g/dLCritically low3.4-5.0The [facility] CenterComment on above:Performed By: #### BNP, CMP ####[facility] Aykayduecw0825[address] [place], [place] [address]Dr. Yilan ChangAlbumin/Globulin [Mass ratio]0.7 {ratio}NormalThe [facility] Comment on above:Performed By: #### BNP, CMP ####[facility] Jygakmzdns8723[address] [place], [place] [address]Dr. Yilan ChangALP [Catalytic activity/Vol]161 U/LCritically uqwe33-743Gov [facility] CenterComment on above: Performed By: #### BNP, CMP ####[facility] Linsnxmxgq926[address] [place], [place] [address]Dr. Yilan ChangALT [Catalytic activity/Vol]22 U/L Zqmrwh16-93Qmo [facility] CenterComment on above:Performed By: #### BNP, CMP ####[facility] Ubxtwddvae6224[address] [place], [place] [address]Dr. Yilan ChangAnion gap [Moles/Vol]13.5 mmol/LNormalThe [facility] CenterComment on above:Performed By: #### BNP, CMP ####[facility] Ceidsflvru065[address] [place], [place] [address]Dr. Yilan ChangAST [Catalytic activity/Vol]41 U/L Critically dcek45-69Kjp [facility] CenterComment on above:Performed By: #### BNP, CMP ####[facility] Nrefglrheo9622[address] [place], [place] [address]Dr. Yilan ChangBilirubin [Mass/Vol]0.5 mg/dLNormal0.2-1.0The [facility] CenterComment on above:Performed By: #### BNP, CMP ####[facility] Gldkcisbys4714[address] [place], [place] [address]Dr. Yilan ChangCalcium [Mass/Vol]9.4 mg/dLNormal8.5-10.1The [facility] CenterComment on above:Performed By: #### BNP, CMP ####[facility] Xopbseuovy5960[address] [place], [place] [address]Dr. Yilan ChangChloride [Moles/Vol]98 mmol/LNormal 98-107The [facility] CenterComment on above:Performed By: #### BNP, CMP ####[facility] Yxsqrjndyc512[address] [place], [place] [address]Dr. Yilan ChangCO2 [Moles/Vol]27.0 mmol/IHracmw90.0-32.0The [facility] CenterComment on above:Performed By: #### BNP, CMP ####[facility] Uocslaxfwj9068[address] [place], [place] [address]Dr. Yilan ChangCreatinine [Mass/Vol]1.08 mg/dL Critically high0.55-1.02The [facility] HospitalComment on above:Performed By: #### BNP, CMP ####[facility] Ivgskglrbv1165[address] [place], [place] [address]Dr. Yilan ChangEGFR-AF MARSHALLESE>60Normal>=60The [facility] CenterComment on above:Performed By: #### BNP, CMP ####[facility] Qpmgaivbmi7822[address] [place], [place] [address]Dr. Yilan ChangEGFR-NON AF FDHUCXPQ84 mL/min/1.84f3Svtwbowctc low>=60The [facility] CenterComment on above:Performed By: #### BNP, CMP ####[facility] Uxognxdyxo705[address] [place], [place] [address]Dr. Yilan ChangGlobulin (S) [Mass/Vol]4.2 g/dLNormalThe [facility] CenterCominsight surgical hospital on above:Performed By: #### BNP, CMP ####[facility] Shcfkoqlhe138[address] [place], [place] [address]Dr. Yilan ChangGlucose [Mass/Vol]173 mg/dLCritically lidw81-221Lqv [facility] CenterCominsight surgical hospital on above: Performed By: #### BNP, CMP ####[facility] Ikwwhkfzxq912[address] [place], [place] [address]Dr. Yilan ChangPotassium [Moles/Vol]4.5 mmol/LNormal 3.5-5.1The [facility] CenterCominsight surgical hospital on above:Performed By: #### BNP, CMP ####[facility] Vogriolmpe705[address] [place], [place] [address]Dr. Yilan ChangProtein [Mass/Vol]7.3 g/dLNormal6.4-8.2The [facility] CenterComment on above:Performed By: #### BNP, CMP ####[facility] Uhntssensl[address] [place], [place] [address]Dr. Yilan ChangSodium [Moles/Vol]134 mmol/L Critically eic804-934Ivo [facility] on above:Performed By: #### BNP, CMP ####[facility] Odxtkqrulf728[address] [place], [place] [address]Dr. Yilan ChangUrea nitrogen [Mass/Vol]37.0 mg/dLCritically high7.0-18.0The [facility] CenterComment on above:Performed By: #### BNP, CMP ####[facility] Ieysjgqtot1428[address] [place], [place] [address]Dr. Yilan ChangUrea nitrogen/Creatinine [Mass ratio]34.3 mg/mgNoSt. Vincent HospitalComment on above:Performed By: #### BNP, CMP ####[facility] Mslbgiqsqp5935[address] [place], [place] [address]Dr. Yilan ChangXR ANKLE RT MIN 3 VIEWSon 43-41-2030RR ANKLE RT MIN 3 VIEWSGreen Cross HospitalXR CHEST 1 Von [id number] CHEST 1 VNormalEast Liverpool City HospitalXR FOOT RT MIN 3 VIEWSon [id number] FOOT RT MIN [address] [facility] CenterCBC AUTO DIFFon 09-21-4939WOJW #0.1 103/ul Normal0.0-0.1The [facility] CenterComment on above:Performed By: #### CBC ####[facility] Ffleuxtxue694[address] [place], [place] [address]Dr. Yilan ChangBasophils/100 WBC (Bld)0.7 %Normal0.2-2.0[facility] HospitalComment on above:Performed By: #### CBC ####[facility] Cjnfrovljt4824[address] [place], [place] [address]Dr.Yilan ChangEO #0.2 103/ulNormal0.0-0.7The [facility] CenterComment on above:Performed By: #### CBC ####[facility] Drftpthnbw182496 [address] [place], [place] [address]Dr.Yilan ChangEosinophils/100 WBC (Bld)2.1 %Normal0.9-7.0The [facility] CenterComment on above:Performed By: #### CBC ####[facility] Hdvbeycavf5722[address] [place], [place] [address]Dr.Yilan ChangErythrocyte distribution width (RBC) [Ratio]13.1 %Normal 11.0-15.0The [facility] CenterComment on above:Performed By: #### CBC ####[facility] Syjcdazwce633[address] [place], [place] [address]Dr. Abiel ClementHematocrit (Bld) [Volume fraction]33.9 %Critically low36.0-48.0The [facility] CenterComment on above:Performed By: #### CBC ####[facility] Darykuowug606[address] [place], [place] [address]Dr.Abiel ChangHemoglobin (Bld) [Mass/Vol]11.0 g/dLCritically low12.0-16.0The [facility] CenterComment on above:Performed By: #### CBC ####[facility] Pvnmfvnopj4428[address] [place], [place] [address]Dr.Yilan ChangIG #0.04 10e3/ulCritically high0.00-0.03 The [facility] CenterComment on above:Performed By: #### CBC ####[facility] Vjpvxorjjp018[address] [place], [place] [address]Dr.Abiel ChangIG % 0.4 %Normal0.0-0.5The [facility] CenterComment on above:Performed By: #### CBC ####[facility] Qbbsbxhtie896396 [address] [place], [place] [address]Dr. Abiel ChangLYMPH #2.0 103/ulNormal1.2-3.8The [facility] CenterComment on above: Performed By: #### CBC ####[facility] Ttnjlczbkw8920[address] [place], [place] [address]Dr.Abiel ClementLymphocytes/100 WBC (Bld)20.0 % Critically low20.5-60.0The [facility] CenterComment on above:Performed By: #### CBC ####[facility] Hqviaxngne701[address] [place], [place] [address]Dr. Abiel ClementMANUAL DIFF REQNONormalThe [facility] CenterComment on above: Performed By: #### CBC ####[facility] Hkokndupbo184[address] [place], [place] [address]Dr.Abiel ClementMCH (RBC) [Entitic mass]29.5 pgNormal 26.7-34.0The [facility] HospitalComment on above:Performed By: #### CBC ####[facility] [address] [place] [address]Dr. Abiel UrbanoMCHC (RBC) [Mass/Vol]32.4 g/iVVnnets23.9-35.2The [facility] Comment on above:Performed By: #### CBC ####[facility] [address]ks[address]ateyy[address] [place] [address]Dr.Abiel UrbanoMCV (RBC) [Entitic vol]90.9 fL Ecncgr80.0-99.0The [facility] CenterComment on above:Performed By: #### CBC ####[facility] Tmlloooqcf1300[address] [place], [place] [address]Dr. Suyapaviviana ClementMONO #1.0 103/ulCritically high0.3-0.8The [facility] CenterComment on above:Performed By: #### CBC ####[facility] Jljcescdor929[address] [place], [place] [address]Dr.Suyapaviviana ClementMonocytes/100 WBC (Bld)10.3 %Normal 1.7-12.0The [facility] CenterComment on above:Performed By: #### CBC ####[facility] Nqkjzsgczm934[address] [place], [place] [address]Dr. Abiel ClementNEUT #6.5 103/ulNormal1.4-6.5The [facility] CenterComment on above: Performed By: #### CBC ####[facility] Wgyfhprxkp3423[address] [place], [place] [address]Dr.Abiel UrbanoNeutrophils/100 WBC (Bld)66.5 %Normal 43.0-75.0The [facility] CenterComment on above:Performed By: #### CBC ####[facility] Dqpdahwagz21979[address] [place], [place] [address]Dr. Suyapaviviana ClementPlatelet mean volume (Bld) [Entitic vol]10.8 fLNormal9.5-13.5The [facility] CenterComment on above:Performed By: #### CBC ####[facility] Swwkqucxfr2715[address] [place], [place] [address]Dr.Abiel ClementPLT278 103/ul Mbmtln629-513Lsz [facility] CenterComment on above:Performed By: #### CBC ####[facility] Ouhwepuahv1727[address] [place], [place] [address]Dr. Abiel ChangRBC3.73 106/ulCritically low4.20-5.40The [facility] CenterComment on above:Performed By: #### CBC ####[facility] Vvitmcdchs276[address] [place], [place] [address]Dr.Abiel ChangWBC9.7 103/ulNormal4.0-11.0The [facility] HospitalComment on above:Performed By: #### CBC ####[facility] Zujcqftdaz988[address] [place], [place] [address]Dr.Abiel ClementPROF CHEM 8 (BAS METB)on 49-75-3160Fzhkr gap [Moles/Vol]11.5 mmol/LNormalThe [facility] CenterComment on above:Performed By: #### BMP ####[facility] Wrnwjygjfw600[address] [place], [place] [address]Dr.Abiel ChangCalcium [Mass/Vol]8.9 mg/dLNormal8.5-10.1The [facility] CenterComment on above:Performed By: #### BMP ####[facility] Vxtabtlinm1899[address] [place], [place] [address]Dr.Abiel ChangChloride [Moles/Vol]102 mmol/NMhlwez87-334Foa [facility] CenterComment on above:Performed By: #### BMP ####[facility] Gncscgfiar4517[address] [place], [place] [address]Dr.Abiel ChangCO2 [Moles/Vol] 28.4 mmol/WDziivf86.0-32.0The [facility] CenterComment on above:Performed By: #### BMP ####[facility] Kayuypuvtu566[address] [place], [place] [address]Dr.Abiel ChangCreatinine [Mass/Vol]1.10 mg/dLCritically high0.55-1.02The [facility] CenterComment on above:Performed By: #### BMP ####[facility] Prklzmkwri509[address] [place], [place] [address]Dr.Abiel ChangEGFR-AF MARSHALLESE>60Normal>=60The [facility] CenterComment on above:Performed By: #### BMP ####[facility] Vjddmntksw9035[address] [place], [place] [address]Dr. Abiel ChangEGFR-NON AF ZUTIQKWH59 mL/min/1.58v3Vngswhahio low>=60The [facility] CenterComment on above:Performed By: #### BMP ####[facility] Pyuofxttyh200[address] [place], [place] [address]Dr.Abiel ChangGlucose [Mass/Vol]106 mg/lPGngrmq70-098Ita [facility] CenterComment on above:Performed By: #### BMP ####[facility] Cmykrbekgi455[address] [place], [place] [address]Dr.Abiel ChangPotassium [Moles/Vol]3.9 mmol/LNormal3.5-5.1The [facility] CenterComment on above:Performed By: #### BMP ####[facility] Rcfbsyaywc6787[address] [place], [place] [address]Dr.Abiel ChangSodium [Moles/Vol]138 mmol/KZqlorx395-986BpjEast Liverpool City HospitalCominsight surgical hospital on above: Performed By: #### BMP ####[facility] Wbcovcjlmf279[address] [place], [place] [address]Dr.Abiel ChangUrea nitrogen [Mass/Vol]38.0 mg/dL Critically high7.0-18.0[facility] HospitalCominsight surgical hospital on above:Performed By: #### BMP ####[facility] Oqrcerhqqt877[address] [place], [place] [address]Dr. Abiel ChangUrea nitrogen/Creatinine [Mass ratio]34.5 mg/mgGreen Cross HospitalCominsight surgical hospital on above:Performed By: #### BMP ####[facility] Dsrunyhzlx8618[address] [place], [place] [address]Dr.Abiel ChangXR FOOT LT MIN 3 VIEWSon 51-19-8826WL FOOT LT MIN [address] [facility] CenterPOINT OF CARE GLUCOSEon 84-91-3812Fczlfmd [Mass/Vol]389 mg/dLCritically rdeq82-517Yti [facility] HospitalComment on above:Performed By: #### POCGLUC ####[facility] [address]my[address] [place], [place] [address]Lr. Abiel Clement Glucose [Mass/Vol]414 mg/dLCritically jqhs01-066Uex [facility] CenterComment on above:Performed By: #### POCGLUC ####[facility] B[address]aviyjni[address] [place], [place] [address]Ka. Abiel ChangGlucose [Mass/Vol]295 mg/dLCritically jwbx80-711AekEast Liverpool City HospitalComment on above:Performed By: #### POCGLUC ####[facility] Vzofdlvfzw44[address] [place], [place] [address]Yr. Abiel ChangGlucose [Mass/Vol]323 mg/dLCritically xgix87-863BeyEast [facility] City Hospital Comment on above:Performed By: #### POCGLUC ####[facility] H[address]qfhsjlu60[address] [place], [place] [address]Wz. Abiel ClementCovid-19 PCR (CVDTBH)on 88-36-0329FPIZ-CoV-2 (COVID-19) RNA CLARIBEL+probe Ql (Unsp spec)Not detectedNormal NOT DETECTEDThe [facility] on above:Result Comment: When diagnostic testing is negative, the possibility of a false negative should be c onsidered inthe context of a patient's recent exposures [...] for this test is supported by the [place] of Health and Human Service's declaration that circumstances exist to justify the emergency use of in vitro diagnostics for the detection and/or diagnosis of the virus that causes COVID-19. This EUA will remain in effect for the duration of the COVID-19declaration justifying emergency of IVDs, unless it is terminated or revoked by the FDA (after which the test may no longer be used).Performed By: #### CVDTBH ####[facility] Bneqtavkvm5732[address] [place], [place] [address]Dr. Abiel ClementCBC AUTO DIFFon 02-14-4640GIEL #0.1 103/ulNormal0.0-0.1The [facility] CenterComment on above:Performed By: #### CBC ####[facility] Vijmjqpbcf250[address] [place], [place] [address]Dr.Abiel ChangBasophils/100 WBC (Bld)0.7 %Normal0.2-2.0The [facility] CenterComment on above:Performed By: #### CBC ####[facility] Djguarsqba7735[address] [place], [place] [address]Dr.Suyapalan ChangEO #0.2 103/ulNormal0.0-0.7The [facility] CenterComment on above:Performed By: #### CBC ####[facility] Hwxrhrxiiw108[address] [place], [place] [address]Dr.Abiel ChangEosinophils/100 WBC (Bld)2.6 %Normal 0.9-7.0The [facility] CenterComment on above:Performed By: #### CBC ####[facility] Ybjizmuthk3318[address] [place], [place] [address]Dr.Abiel Clement Erythrocyte distribution width (RBC) [Ratio]13.2 %Jcmpug78.0-15.0The [facility] CenterComment on above:Performed By: #### CBC ####[facility] Bwlmgjxhgn634[address] [place], [place] [address]Dr.Abiel ClementHematocrit (Bld) [Volume fraction]42.4 %Knaqfl77.0-48.0The [facility] CenterComment on above:Performed By: #### CBC ####[facility] Xgduykxryb1500[address] [place], [place] [address]Dr.Abiel ClementHemoglobin (Bld) [Mass/Vol]13.9 g/dL Knfywv75.0-16.0The [facility] CenterComment on above:Performed By: #### CBC ####[facility] Xlgeumzmaw794[address] [place], [place] [address]Dr. Abiel ChangIG #0.02 10e3/ulNormal0.00-0.03The [facility] HospitalComment on above: Performed By: #### CBC ####[facility] [address] [place] [address]Dr.Abiel ClementIG %0.3 %Normal0.0-0.5The [facility] CenterComment on above:Performed By: #### CBC ####[facility] Tidsanwibd500[address] [place], [place] [address]Dr.Abiel ClementLYMPH #1.8 103/ulNormal1.2-3.8The [facility] CenterComment on above:Performed By: #### CBC ####[facility] Atergfakru0116[address] [place], [place] [address]Dr. Abiel Mejíamphocytes/100 WBC (Bld)24.1 %Mudggq00.5-60.0[facility] Comment on above:Performed By: #### CBC ####[facility] Vwiwjsuglg680[address] [place], [place] [address]Dr.Abiel ClementMANUAL DIFF REQNONormalThe [facility] CenterComment on above:Performed By: #### CBC ####[facility] Cawqlgnema146[address] [place], [place] [address]Dr.Abiel ClementST. [facility] (RBC) [Entitic mass]29.4 tyGpqooe75.7-34.0[facility] HospitalComment on above: Performed By: #### CBC ####[facility] Tpiuylmqia2480[address] [place], [place] [address]Dr.Abiel ClementER[facility] (RBC) [Mass/Vol]32.8 g/dLNormal 29.9-35.2The [facility] CenterComment on above:Performed By: #### CBC ####[facility] Owmekywctr450[address] [place], [place] [address]Dr. Abiel ClementV (RBC) [Entitic vol]89.8 wNPurujq33.0-99.0[facility] Comment on above:Performed By: #### CBC ####[facility] Qezcxjbded366[address] [place], [place] [address]Dr.Abiel ClementMONO #0.7 103/ulNormal0.3-0.8 The [facility] CenterComment on above:Performed By: #### CBC ####[facility] Hlzpyyrhrc887[address] [place], [place] [address]Dr.Abiel Clement Monocytes/100 WBC (Bld)9.2 %Normal1.7-12.0The [facility] CenterComment on above: Performed By: #### CBC ####[facility] Iwenjbomow2435[address] [place], [place] [address]Dr.Abiel ClementNEUT #4.6 103/ulNormal1.4-6.5The [facility] CenterComment on above:Performed By: #### CBC ####[facility] Kyxkzcsszo260[address] [place], [place] [address]Dr.Abiel ClementNeutrophils/100 WBC (Bld)63.1 %Rpkloz10.0-75.0The [facility] CenterComment on above:Performed By: #### CBC ####[facility] Sewsrnjdhd627[address] [place], [place] [address]Dr.Abiel ClementPlatelet mean volume (Bld) [Entitic vol]11.4 fLNormal9.5-13.5 The [facility] CenterComment on above:Performed By: #### CBC ####[facility] Gqnyglwyll7550[address] [place], [place] [address]Dr.Abiel AzymcFIR376 103/etYwqdhi937-469Bwx [facility] CenterComment on above:Performed By: #### CBC ####[facility] Pafkagnlxf0626[address] [place], [place] [address]Dr. Abiel ChangRBC4.72 106/ulNormal4.20-5.40The [facility] CenterComment on above: Performed By: #### CBC ####[facility] Oxeqvkzgrb595[address] [place], [place] [address]Dr.Abiel ChangWBC7.3 103/ulNormal4.0-11.0The [facility] CenterComment on above:Performed By: #### CBC ####[facility] Qtayrlsnme211[address] [place], [place] [address]Dr.Yilan ChangPROF CHEM 8 (BAS METB)on 47-02-4141Htpxt gap [Moles/Vol]12.2 mmol/LNormalThe [facility] CenterComment on above:Performed By: #### BMP ####[facility] Mwzrrglnir448[address] [place], [place] [address]Dr.Yilan ChangCalcium [Mass/Vol]9.2 mg/dLNormal8.5-10.1The [facility] CenterComment on above:Performed By: #### BMP ####[facility] Ptklllzlov2490[address] [place], [place] [address]Dr.Yilan ChangChloride [Moles/Vol]102 mmol/MNxfdya76-530Jju [facility] CenterComment on above:Performed By: #### BMP ####[facility] Cpfjcvqltk912[address] [place], [place] [address]Dr.Yilan ChangCO2 [Moles/Vol] 26.9 mmol/WHldzjk63.0-32.0The [facility] CenterComment on above:Performed By: #### BMP ####[facility] Zkngrdwdfz114[address] [place], [place] [address]Dr.Yilan ChangCreatinine [Mass/Vol]0.99 mg/dLNormal0.55-1.02The [facility] CenterComment on above:Performed By: #### BMP ####[facility] Dfrefatgab725[address] [place], [place] [address]Dr.Yilan ChangEGFR-AF MARSHALLESE>=60Normal>=60The [facility] CenterComment on above:Performed By: #### BMP ####[facility] Wsbitfzmkj2777[address] [place], [place] [address]Dr. Yilan ChangEGFR-NON AF RSGMUKKO93 mL/min/1.58u9Pjgzdnmlrn low>=60The [facility] CenterCominsight surgical hospital on above:Performed By: #### BMP ####[facility] Zaoojycnqd676[address] [place], [place] [address]Dr.Yilan ChangGlucose [Mass/Vol]103 mg/sTTtwzun74-799Efo [facility] CenterComment on above:Performed By: #### BMP ####[facility] Namwfucoob7399[address] [place], [place] [address]Dr.Abiel ChangPotassium [Moles/Vol]4.1 mmol/LNormal3.5-5.1The [facility] CenterComment on above:Performed By: #### BMP ####[facility] Fejuigvshm[address] [place], [place] [address]Dr.Abiel ChangSodium [Moles/Vol]137 mmol/XNbjhmw381-769Tqv [facility] CenterComment on above: Performed By: #### BMP ####[facility] Cbehzzlwsk449[address] [place], [place] [address]Dr.Suyapalan ChangUrea nitrogen [Mass/Vol]27.0 mg/dL Critically high7.0-18.0The [facility] CenterComment on above:Performed By: #### BMP ####[facility] Djacjpeevi[address] [place], [place] [address]Dr. Suyapalan ChangUrea nitrogen/Creatinine [Mass ratio]27.3 mg/mgNormalThe The [facility] CenterComment on above:Performed By: #### BMP ####[facility] Iaixxzoxnm[address] [place], [place] [address]Dr.Abiel ChangPROTIMEon 10-96-8686HRQ Coag (PPP) [Relative time]0.97 {INR}NormalThe [facility] Comment on above:Performed By: #### PTT, PT ####[facility] Ytcjfxwsdy[address] [place], [place] [address]Dr. Abiel ClementINR GUIDELINESSEE BELOWNormal The [facility] CenterComment on above:Result Comment: DESIRED INR: 2.0 - 3.0 CONDITIONS NOT LISTED BELOW 2.5 - 3.5 FOR PROSTHETIC HEART VALVE REPLACEMENT 2.5 - 3.5 RECURRENT THROMBOSISPerformed By: #### PTT, PT ####[facility] Rojfutztvh9[address] [place], [place] [address]Dr. Abiel ClementPT Coag (PPP) [Time]10.5 sNormal9.0-11.6The [facility] CenterComment on above:Performed By: #### PTT, PT ####[facility] Mgldcdvtca[address] [place], [place] [address]Dr. Abiel ClementPTTon 11-93-6302hBQF Coag (Bld) [Time]24.8 tNpbdgf84.3-36.2 The [facility] CenterComment on above:Performed By: #### PTT, PT ####[facility] [address] [place] [address]Dr. Abiel ClementUS CAROTID ART BILon 70-54-2337TZ CAROTID ART BILNormMercy Health Fairfield HospitalXR FOOT VIC MIN 3 VIEWSon 50-31-8538OQ FOOT VIC MIN 3 [facility] AMYLASEon 58-83-3378Cnfhxns [Catalytic activity/Vol]66 U/ZQlzymz47-709Biz [facility] CenterComment on above:Performed By: #### CMP, BENNY, LIPA ####[facility] Himf[address]nlkbi[address] [place] [address]Dr. Suyapaviviana UrbanoCBC AUTO DIFFon 91-50-5701KIFB #0.1 103/ulNormal0.0-0.1The [facility] CenterComment on above:Performed By: #### CBC ####[facility] [address]mopdqpucp[address] [place] [address]Dr.Abiel ChangBasophils/100 WBC (Bld)1.1 %Normal 0.2-2.0The [facility] CenterComment on above:Performed By: #### CBC ####[facility] Xkrzvjfowp[address] [place] [address]Dr.Abiel ChangEO # 0.1 103/ulNormal0.0-0.7The [facility] CenterComment on above:Performed By: #### CBC ####[facility] [address]pquzb[address] [place] [address]Dr. Abiel ChangEosinophils/100 WBC (Bld)2.5 %Normal0.9-7.0The [facility] Comment on above:Performed By: #### CBC ####[facility] Goykgngqbw[address] [place], [place] [address]Dr.Abiel ChangErythrocyte distribution width (RBC) [Ratio]14.6 %Dixhck45.0-15.0The [facility] CenterComment on above: Performed By: #### CBC ####[facility] Rdxeswwsnl[address] [place], [place] [address]Dr.Abiel ClementHematocrit (Bld) [Volume fraction]47.4 % Hbuyqj50.0-48.0The [facility] HospitalComment on above:Performed By: #### CBC ####[facility] Izxloyvfbo9[address] [place], [place] [address]Dr. Abiel ClementHemoglobin (Bld) [Mass/Vol]15.4 g/wAZolyik42.0-16.0The [facility] CenterComment on above:Performed By: #### CBC ####[facility] Tgkgbmjkhx936[address] [place], [place] [address]Dr.Yilan ChangIG #0.01 10e3/ulNormal0.00-0.03The [facility] CenterComment on above:Performed By: #### CBC ####[facility] Cpnmhbuzpl529[address] [place], [place] [address]Dr. Abiel ChangIG %0.2 %Normal0.0-0.5The [facility] CenterComment on above:Performed By: #### CBC ####[facility] Uxwjsvkdvt235[address] [place], [place] [address]Dr.Abiel ChangLYMPH #1.6 103/ulNormal1.2-3.8The [facility] Comment on above:Performed By: #### CBC ####[facility] Vjqpybavqz308[address] [place], [place] [address]Dr.Abiel ClementLymphocytes/100 WBC (Bld)27.3 %Fhvxxm64.5-60.0The [facility] CenterComment on above:Performed By: #### CBC ####[facility] Pfgxjpxktf264[address] [place], [place] [address]Dr. Abiel ClementMANUAL DIFF REQNONormalThe [facility] CenterComment on above: Performed By: #### CBC ####[facility] Gsrdfrdxqj930[address] [place], [place] [address]Dr.Abiel ClementMCH (RBC) [Entitic mass]28.1 pgNormal 26.7-34.0The [facility] CenterComment on above:Performed By: #### CBC ####[facility] [address]qnu[address]mbz[address] [place] [address]Dr. Abiel ClementHC (RBC) [Mass/Vol]32.5 g/xGViioba38.9-35.2The [facility] Comment on above:Performed By: #### CBC ####[facility] Uvbkaywarv[address] [place], [place] [address]Dr.Abiel ClementMCV (RBC) [Entitic vol]86.5 fL Pjdwor43.0-99.0The [facility] HospitalComment on above:Performed By: #### CBC ####[facility] Rxpvjkrtzk809[address] [place], [place] [address]Dr. Abiel ClementMONO #0.5 103/ulNormal0.3-0.8The [facility] HospitalComment on above: Performed By: #### CBC ####[facility] Qbozawoghe58[address] [place], [place] [address]Dr.Abiel ClementMonocytes/100 WBC (Bld)8.5 %Normal 1.7-12.0The [facility] CenterComment on above:Performed By: #### CBC ####[facility] Qsopvgwsoc[address] [place], [place] [address]Dr. Abiel ClementNEUT #3.4 103/ulNormal1.4-6.5The [facility] CenterComment on above: Performed By: #### CBC ####[facility] Xsebuvhohe[address] [place], [place] [address]Dr.Abiel ClementNeutrophils/100 WBC (Bld)60.4 %Normal 43.0-75.0The [facility] CenterComment on above:Performed By: #### CBC ####[facility] Lneaujzwwo274[address] [place], [place] [address]Dr. Suyapaviviana UrbanoPlatelet mean volume (Bld) [Entitic vol]11.6 fLNormal9.5-13.5The [facility] HospitalComment on above:Performed By: #### CBC ####[facility] Jgzumipkqs214[address] [place], [place] [address]Dr.Abiel ClementPLT257 103/ul Nbzait093-728Qld [facility] CenterComment on above:Performed By: #### CBC ####[facility] [address]ncq[address]jsin[address] [place] [address]Dr. Abiel ClementRBC5.48 106/ulCritically high4.20-5.40The [facility] CenterComment on above:Performed By: #### CBC ####[facility] [address]ql[address]qieh[address] [place] [address]Dr.Abiel ClementWBC5.7 103/ulNormal4.0-11.0The [facility] CenterComment on above:Performed By: #### CBC ####[facility] Rmvmofqqmj[address] [place] [address]Dr.Abiel ClementLIPASEon 33-70-3087Rxbumk [Catalytic activity/Vol]32.0 U/ZLjjpcs60.0-300.0The [facility] CenterComment on above:Performed By: #### CMP, BENNY, LIPA ####[facility] [address]zfuj[address] [place] [address]Dr. Abiel ClementPROF 14(COMP METB)on 92-66-5061Llwztns [Mass/Vol]3.6 g/dLNormal3.5-5.0The [facility] Comment on above:Performed By: #### CMP, BENNY, LIPA ####[facility] [address]ftguslwi[address] [place] [address]Dr. Abiel Clement Albumin/Globulin [Mass ratio]0.8 {ratio}NormalThe [facility] CenterComment on above:Performed By: #### CMP, BENNY, LIPA ####[facility] Drlsgvcfor[address] [place] [address]Dr. Abiel ClementALP [Catalytic activity/Vol] 325 U/LCritically ipgb03-888Nmi [facility] CenterComment on above:Performed By: #### CMP, BENNY, LIPA ####[facility] [address]rjhtnfe[address] [place] [address]Dr. Abiel ClementALT [Catalytic activity/Vol]103 U/L Critically high9-52The [facility] CenterComment on above:Performed By: #### CMP, BENNY, LIPA ####[facility] On[address]zvcbe[address] [place] [address]Dr. Yilan ChangAnion gap [Moles/Vol]13.1 mmol/LNormalThe [facility] Comment on above:Performed By: #### CMP, BENNY, LIPA ####[facility] [address]vkf[address] [place] [address]Dr. Yilan ChangAST [Catalytic activity/Vol]78 U/LCritically jsvb55-46Rjn [facility] CenterComment on above: Performed By: #### CMP, BENNY, LIPA ####[facility] [address]ew[address]zxyslf[address] [place] [address]Dr. Yilan ChangBilirubin [Mass/Vol]0.4 mg/dLNormal 0.2-1.3The [facility] CenterComment on above:Performed By: #### CMP, BENNY, LIPA ####[facility] X[address]krvozdjh[address] [place] [address]Dr. Yilan ChangCalcium [Mass/Vol]9.6 mg/dLNormal8.4-10.2[facility] HospitalComment on above:Performed By: #### CMP, BENNY, LIPA ####[facility] Lblicjayyu[address] [place] [address]Dr. Yilan ChangChloride [Moles/Vol]102 mmol/IAvlexm28-837Mli [facility] CenterComment on above:Performed By: #### CMP, BENNY, LIPA ####[facility] [address]heuyrggpq[address] [place] [address]Dr. Yilan ChangCO2 [Moles/Vol]21.5 mmol/LCritically low22.0-30.0The [facility] CenterComment on above:Performed By: #### CMP, BENNY, LIPA ####[facility] [address]oadx[address] [place] [address]Dr. Yilan Clement Creatinine [Mass/Vol]1.51 mg/dLCritically high0.52-1.04The [facility] Comment on above:Performed By: #### CMP, BENNY, LIPA ####[facility] [address]cs[address]vops[address] [place] [address]Dr. Yilan ChangEGFR-AF LCUCITCF14 mL/min/1.27m7Gezjowcujx low>=60The [facility] CenterComment on above: Performed By: #### CMP, BENNY, LIPA ####[facility] Ykfpnjcgwm39[address] [place] [address]Dr. Yilan ChangEGFR-NON AF URGIGEMF92 mL/min/1.73m2 Critically low>=60The [facility] HospitalComment on above:Performed By: #### CMP, BENNY, LIPA ####[facility] Wwqhmcggus[address] [place] [address]Dr. Yilan ChangGlobulin (S) [Mass/Vol]4.5 g/dLNormalThe [facility] Comment on above:Performed By: #### CMP, BENNY, LIPA ####[facility] Bsdkmwmhzp[address] [place], [place] [address]Dr. Yilan ChangGlucose [Mass/Vol]167 mg/dLCritically kjnm73-212Cnc [facility] CenterComment on above: Performed By: #### CMP, BENNY, LIPA ####[facility] Wutetucgwm[address] [place], [place] [address]Dr. Yilan ChangPotassium [Moles/Vol]4.6 mmol/LNormal 3.4-5.0The [facility] CenterComment on above:Performed By: #### CMP, BENNY, LIPA ####[facility] Jjohfhlnhc[address] [place], [place] [address]Dr. Yilan ChangProtein [Mass/Vol]8.1 g/dLNormal6.1-8.2The [facility] CenterComment on above:Performed By: #### CMP, BENNY, LIPA ####[facility] Eybqoxnujf[address] [place], [place] [address]Dr. Yilan ChangSodium [Moles/Vol]132 mmol/L Critically gbg631-475Gle [facility] CenterComment on above:Performed By: #### CMP, BENNY, LIPA ####[facility] Wvcgwldikg14[address] [place], [place] [address]Dr. Yilan ChangUrea nitrogen [Mass/Vol]35.0 mg/dLCritically high 7.0-17.0[facility] HospitalComment on above:Performed By: #### BENNY GAMA LIPA ####[facility] [address] [place], [place] [address]Ae. Abiel ChangUrea nitrogen/Creatinine [Mass ratio]23.2 mg/mgGreen Cross HospitalComment on above:Performed By: #### BENNY GAMA, LIPA ####[facility] [address]dzb[address] [place], [place] [address]Jr. Yilan ChangXR ABD FLAT UP_PA Tl 64-53-8578JI ABD FLAT UP_PA [facility] HospitalXR FOOT LT MIN 3 VIEWSon 47-80-3123GY FOOT LT MIN 3 [facility] COMPREHENSIVE METABOLIC PANELon 69-82-1719Vwfeuyz [Mass/Vol]4.1 g/dLNormal 3.6-5.1Quest DiagnosticsComment on above:Performed By: #### 67542, 7600 #### [facility] [address], [address] [place] [address] Yield Clerk: Christian Dove MDAlbumin/Globulin [Mass ratio]1.2 {ratio}Normal 1.0-2.5Quest DiagnosticsComment on above:Performed By: #### 60590, 7600 #### [facility] [address], [address] [place] [address] Yield Clerk: Christian Dove MDALP [Catalytic activity/Vol]206 U/HSsuk68-595 [facility] DiagnosticsComment on above:Performed By: #### 87123, 7600 #### [facility] [place] [address] Yield Clerk: Christian Dove MDALT [Catalytic activity/Vol]32 U/LHigh6-29 [facility] DiagnosticsComment on above:Result Comment: NO COLLECTION DATE RECEIVED. WE HAVE USED THE DATE THE SPECIMEN WAS RECEIVED BY THIS LABORATORY THE COLLECTION DATE. IF THIS IS INCORRECT, PLEASE CONTACT CLIENT SERVICES. PHONE NUMBER: [phone] By: #### 01939, 7600 #### [facility] of [address], [address] [place] [address] Yield Clerk: Christian Dove MDAST [Catalytic activity/Vol]28 U/CFzlrll77-92 [facility] DiagnosticsComment on above:Performed By: #### 87243, 7600 #### [facility] of [address], [address] [place] [address] Yield Clerk: Christian Dove MDBilirubin [Mass/Vol]0.5 mg/dLNormal0.2-1.2 [facility] DiagnosticsComment on above:Performed By: #### 96225, 7600 #### [facility] of [address], [address] [place] [address] Yield Clerk: Christian Dove MDBUN/CREATININE RATIONOT APPLICABLENormal6-22 [facility] DiagnosticsComment on above:Performed By: #### 97542, 7600 #### [facility] of [address], [address] [place] [address] Yield Clerk: Christian Dove MDCalcium [Mass/Vol]9.6 mg/dLNormal8.6-10.4Quest DiagnosticsComment on above:Performed By: #### 37597, 7600 #### [facility] of [address], [address] [place] [address] Yield Clerk: Christian Dove MDChloride [Moles/Vol]101 mmol/EMgeoql19-409 [facility] DiagnosticsComment on above:Performed By: #### 87287, 7600 #### [facility] of [place] [address] Yield Clerk: Christian Dove MDCO2 [Moles/Vol]27 mmol/POxtbvk15-44Xdxrl DiagnosticsComment on above:Performed By: #### 05679, 7600 #### [facility] of [address], [address] [place] [address] Yield Clerk: Christian Dove MDCreatinine [Mass/Vol]0.88 mg/dLNormal0.50-0.99 [facility] DiagnosticsComment on above:Result Comment: For patients >49 years of age, the reference limit for Creatinine is approximately 13% higher for people identified as -Grenadian.Performed By: #### 13239, 7600 #### [facility] [address], [address] [place] [address] Yield Clerk: Christian Dove MDeGFR NON-AFR. ZLCZJLGK86 mL/min/1.63s2Afkgrf> OR = 60Quest DiagnosticsComment on above:Performed By: #### 77074, 7600 #### [facility] [place] [address] Yield Clerk: Christian Dove MDGFR/1.73 sq M.predicted among blacks MDRD (S/P/Bld) [Vol rate/Area]82 mL/min/{1.73_m2}Normal> OR = 60[facility] Comment on above:Performed By: #### 26788, 7600 #### [facility] [place] [address] Yield Clerk: Christian Dove MDGlobulin (S) [Mass/Vol]3.3 g/dLNormal1.9-3.7 [facility] DiagnosticsComment on above:Performed By: #### 28033, 7600 #### [facility] [place] [address] Yield Clerk: Christian Dove MDGlucose [Mass/Vol]269 mg/xSTkhu13-73Mowuo DiagnosticsComment on above:Result Comment: Fasting reference interval For someone without known diabetes, a glucose value >125 mg/dL indicates that they may have diabetes and this should be confirmed with a follow-up test.Performed By: #### 86001, 7600 #### [facility] [address], [address] [place] [address] Yield Clerk: Christian Dove MDPotassium [Moles/Vol]4.3 mmol/LNormal3.5-5.3 [facility] DiagnosticsComment on above:Performed By: #### 98279, 7600 #### [facility] of [place] [address] Yield Clerk: Christian Dove MDProtein [Mass/Vol]7.4 g/dLNormal6.1-8.1Quest DiagnosticsComment on above:Performed By: #### 76324, 7600 #### [facility] of [address], [address] [place] [address] Yield Clerk: Christian Dove MDSodium [Moles/Vol]135 mmol/MElzrvn058-281Fzxgr DiagnosticsComment on above:Performed By: #### 92404, 7600 #### [facility] of [place] [address] Yield Clerk: Christian Dove MDUrea nitrogen [Mass/Vol]18 mg/dLNormal7-25 [facility] DiagnosticsComment on above:Performed By: #### 14087, 7600 #### [facility] of [place] [address] Yield Clerk: Christian Dove MDLIPID PANEL, STANDARD 93-40-1891Zdbfbddrctj [Mass/Vol]123 mg/dLNormal<200Quest DiagnosticsComment on above:Performed By: #### 14315, 7600 #### [facility] of [place] [address] Yield Clerk: Christian Dove MDCholesterol in HDL [Mass/Vol]36 mg/dLLow> OR = 50Quest DiagnosticsComment on above:Performed By: #### 67893, 7600 #### [facility] of [place] [address] Yield Clerk: Christian Dove MDCholesterol in LDL [Mass/Vol]65 mg/dLNormal [facility] DiagnosticsComment on above:Result Comment: Reference range: <100 Desirable range <100 mg/dL for primary prevention; <70 mg/dL for patients with CHD or diabetic patients with > or = 2 CHD risk factors. LDL-C is now calculated using the Vita calculation, which is a validated novel method providing better accuracy than the Friedewald equation in the estimation of LDL-C. Ciro PENN et al. MARIA T. 2013;310(19): 4224-3182 (http://education.Zollo.GigOwl/faq/DRF650)Performed By: #### 94095, 7600 #### [facility] [address], [address] [place] [address] Yield Clerk: Christian RAMSAYholesterol.total/Cholesterol in HDL [Mass ratio]3.4 {ratio}Normal<5.0Quest DiagnosticsComment on above:Performed By: #### 93919, 7600 #### [facility] [address], [address] [place] [address] Yield Clerk: Christian CREWS HDL COLXXVGQELD36 mg/dL (calc)Normal<130 [facility] DiagnosticsComment on above:Result Comment: For patients with diabetes plus 1 major ASCVD risk factor, treating to a non-HDL-C goal of <100 mg/dL (LDL-C of <70 mg/dL) is considered a therapeutic option.Performed By: #### 99192, 7600 #### [facility] [address], [address] [place] [address] Yield Clerk: Christian Dove MDTriglyceride [Mass/Vol]134 mg/dLNormal<150 Quest DiagnosticsComment on above:Performed By: #### 48588, 7600 #### [facility] [address], [address] [place] [address] Yield Clerk: Christian RAMSAYOVID Quick Testingon 21-53-2309OnppqwMxbocelb Dasher Other POD GLUCOSE LABon 03-03-2086Llouwnu [Mass/Vol]311 mg/jHKvfy40-611DgkUC Medical CenterComment on above:Performed By: #### 46429 #### [facility] [address] [place] [address], USAGlucose [Mass/Vol]231 mg/tCQoyl79-168Tzk [facility] CenterComment on above:Performed By: #### 51635 #### [facility] [address] [place] [address], [place] GLUCOSE LABon 51-59-6618Qvvryzt [Mass/Vol]173 mg/dLHigh 70-100The [facility] CenterComment on above:Performed By: #### 78817 #### [facility] [address] [place] [address], USAGlucose [Mass/Vol]117 mg/vYQdgb35-615Tyh [facility] CenterComment on above:Performed By: #### 88843 #### [facility] [address] [place] [address], USAGlucose [Mass/Vol]282 mg/gRDomw27-400Qje [facility] CenterComment on above:Performed By: #### 61728 #### [facility] [address] [place] [address], USAGlucose [Mass/Vol]288 mg/sATnaw93-099Vzl [facility] CenterComment on above:Performed By: #### 57585 ####[facility] [place] [address], [place] GLUCOSE LABon 80-96-0697Snhxdha [Mass/Vol]281 mg/lQDypq23-553Sqp [facility] CenterComment on above:Performed By: #### 93642 ####[facility] [place] [address], USAGlucose [Mass/Vol]102 mg/dLHigh 70-100The [facility] CenterComment on above:Performed By: #### 66572 ####[facility] [place] [address], USAGlucose [Mass/Vol]213 mg/vUOqsx17-716Scb [facility] CenterComment on above:Performed By: #### 40930 ####[facility] [place] [address], USAGlucose [Mass/Vol]195 mg/dLHigh 70-100The [facility] CenterComment on above:Performed By: #### 80929 #### [facility] [address] [place] [place] [address], [place] GLUCOSE LABon 97-82-7831Rkygwud [Mass/Vol]221 mg/dLHigh 70-100The [facility] CenterComment on above:Performed By: #### 13750 #### [facility] [address] [place] [address], USAGlucose [Mass/Vol]201 mg/jVDmyh53-735Mpl [facility] CenterComment on above:Performed By: #### 99222, 89133 #### [facility] [address] [place] [place] [address], USAGlucose [Mass/Vol]279 mg/xZWlpd42-723Dqc [facility] CenterComment on above:Performed By: #### 19020 ####[facility] [place] [address], USAGlucose [Mass/Vol] 214 mg/iYVqqy63-093Kev [facility] CenterComment on above: Performed By: #### 36192 #### [facility] [address] [place] [address], [place] GLUCOSE LABon 06-82-3362Jqcfvkl [Mass/Vol]207 mg/dLHigh 70-100The [facility] CenterComment on above:Performed By: #### 05534 #### [facility] [address] [place] [address], USAGlucose [Mass/Vol]119 mg/iNMhuz54-974Dnf [facility] CenterComment on above:Performed By: #### 30742 #### [facility] [address] [place] [address], USAGlucose [Mass/Vol]282 mg/dVYzzm32-196Rys [facility] CenterComment on above:Performed By: #### 20166 #### [facility] [address] [place] [address], USAGlucose [Mass/Vol]212 mg/aNHvyu33-732Sit [facility] CenterComment on above:Performed By: #### 15364 #### [facility] [address] [place] [address], [place] GLUCOSE LABon 89-02-2151Npxbsls [Mass/Vol]134 mg/dLHigh 70-100The [facility] CenterComment on above:Performed By: #### 22894 ####[facility] [place] [address], USAGlucose [Mass/Vol]113 mg/aINiho65-062Mbs [facility] CenterComment on above:Performed By: #### 62324 ####[facility] [place] [address], USAGlucose [Mass/Vol]158 mg/dLHigh 70-100The [facility] CenterComment on above:Performed By: #### 28339 ####[facility] [place] [address], USAGlucose [Mass/Vol]146 mg/gBBbgy49-352Ucb [facility] CenterComment on above:Performed By: #### 65978 #### [facility] [address] [place] [address], USABASIC METABOLIC PANELon 16-69-1774Jyfcvtf [Mass/Vol]9.4 mg/dLNormal8.6-10.3The [facility] CenterComment on above:Order Comment: No: Do not add to previous drawPerformed By: #### 70493, 95244 #### [facility] [address] [place] [address], USAChloride [Moles/Vol]102 mmol/LEhrppl19-767Ulf [facility] CenterComment on above:Order Comment: No: Do not add to previous drawPerformed By: #### 63253, 60370 #### [facility] [address] [place] [address], USACO2 [Moles/Vol]28 mmol/JNqolqs22-09Bjv [facility] CenterComment on above:Order Comment: No: Do not add to previous draw Performed By: #### 08524, 84383 #### [facility] [address] [place] [address], USACreatinine [Mass/Vol]0.73 mg/dLNormal0.60-1.20The [facility] CenterComment on above:Order Comment: No: Do not add to previous drawPerformed By: #### 16168, 95467 #### [facility] [address] [place] [address], USAGFR/1.73 sq M predicted among blacks MDRD (S/P/Bld) [Vol rate/Area]mL/min/{1.73_m2}Normal>60The [facility] Comment on above:Order Comment: No: Do not add to previous drawPerformed By: #### 81854, 23113 #### [facility] [address] [place] [address], USAGFR/1.73 sq M predicted among non-blacks MDRD (S/P/Bld) [Vol rate/Area]mL/min/{1.73_m2}Normal>60The [facility] Comment on above:Order Comment: No: Do not add to previous drawPerformed By: #### 40240, [id number] #### [facility] [address] [place] [address], USAGlucose [Mass/Vol]162 mg/lFVdlf70-652Ifg [facility] CenterComment on above:Order Comment: No: Do not add to previous drawPerformed By: #### 12026, 85824 #### [facility] [address] [place] [address], USAPotassium [Moles/Vol]3.8 mmol/LNormal3.5-5.1The [facility] Medical CenterComment on above:Order Comment: No: Do not add to previous drawPerformed By: #### 78751, 86516 #### [facility] [address] [facility] [place] [address], USASodium [Moles/Vol]138 mmol/BIidepu274-328Zsq [facility] CenterComment on above:Order Comment: No: Do not add to previous drawPerformed By: #### 85865, 24833 #### [facility] [address] [facility] [place] [address], USAUrea nitrogen [Mass/Vol]15 mg/dLNormal7-25The [facility] CenterComment on above:Order Comment: No: Do not add to previous drawPerformed By: #### 30800, 79005 #### [facility] [address] [facility] [place] [address], UN[facility] PSYCHIATRIC CENTERCBC W/DIFFon [id number] BASOPHILS0.1 10*3/uLNormal 0.0-0.2The [facility] CenterComment on above:Order Comment: No: Do not add to previous drawPerformed By: #### 57203 #### [facility] [address] [facility] [place] [address], USAABS IMM GRANS0.0 10*3/uLNormal0.0-0.2The [facility] CenterComment on above:Order Comment: No: Do not add to previous drawPerformed By: #### 20665 #### [facility] [address] [facility] [place] [address], USAABS NEUTROPHILS3.5 10*3/uLNormal1.6-7.6The [facility] CenterComment on above:Order Comment: No: Do not add to previous drawPerformed By: #### 95044 #### [facility] [address] [place] [address], USABasophils/100 WBC (Bld)0.9 %Normal0.0-1.0The [facility] CenterComment on above:Order Comment: No: Do not add to previous drawPerformed By: #### 78058 #### [facility] [address] [place] [address], USAEosinophils (Bld) [#/Vol]0.3 10*3/uLNormal0.0-0.5The [facility] CenterComment on above:Order Comment: No: Do not add to previous drawPerformed By: #### 00617 #### [facility] [address] [place] [address], USAEosinophils/100 WBC (Bld)3.9 %Normal0.0-6.0The [facility] CenterComment on above:Order Comment: No: Do not add to previous drawPerformed By: #### 83759 #### [facility] [address] [place] [address], USAErythrocyte distribution width (RBC) [Ratio]15.1 %High 11.5-15.0The [facility] CenterComment on above:Order Comment: No: Do not add to previous drawPerformed By: #### 86657 #### [facility] [address] [place] [address], USAHematocrit (Bld) [Volume fraction]41.0 %Jvpxdo23.0-45.0The [facility] CenterComment on above:Order Comment: No: Do not add to previous drawPerformed By: #### 48846 #### [facility] [address] [place] [address], USAHemoglobin (Bld) [Mass/Vol]13.0 g/hRKwibsn44.0-15.0The [facility] CenterComment on above:Order Comment: No: Do not add to previous drawPerformed By: #### 20573 #### [facility] [address] [place] [address], USAIMMATURE GRANS0.5 %Normal0.0-1.0The [facility] CenterComment on above:Order Comment: No: Do not add to previous draw Performed By: #### 71732 #### [facility] [address] [place] [address], USALymphocytes (Bld) [#/Vol]1.8 10*3/uLNormal1.2-4.0The [facility] CenterComment on above:Order Comment: No: Do not add to previous drawPerformed By: #### 54257 #### [facility] [address] [place] [address], USALymphocytes/100 WBC (Bld)28.2 %Zviuli14.0-45.0The [facility] CenterComment on above:Order Comment: No: Do not add to previous drawPerformed By: #### 78981 #### [facility] [address] [place] [address], [facility] PSYCHIATRIC CENTERMCH (RBC) [Entitic mass]28.6 gyHgtixk59.0-33.0The [facility] CenterComment on above:Order Comment: No: Do not add to previous drawPerformed By: #### 56681 #### [facility] [address] [place] [address], [facility] PSYCHIATRIC CENTERMCHC (RBC) [Mass/Vol]31.7 g/dLLow32.0-35.0The [facility] CenterComment on above:Order Comment: No: Do not add to previous drawPerformed By: #### 30492 #### [facility] [address] [place] [address], USAMCV (RBC) [Entitic vol]90.3 eXYieegk19.0-98.0The [facility] CenterComment on above:Order Comment: No: Do not add to previous drawPerformed By: #### 60486 #### [facility] [address] [place] [address], USAMonocytes (Bld) [#/Vol]0.7 10*3/uLNormal0.1-1.0The [facility] CenterComment on above:Order Comment: No: Do not add to previous drawPerformed By: #### 40883 #### [facility] [address] [place] [address], WTSTBFBT19.1 %Normal5.0-12.0The [facility] CenterComment on above:Order Comment: No: Do not add to previous drawPerformed By: #### 38737 #### [facility] [address] [place] [address], USANeutrophils/100 WBC (Bld)55.4 %Fbqdgs98.0-72.0The [facility] CenterComment on above:Order Comment: No: Do not add to previous drawPerformed By: #### 47022 #### [facility] [address] [place] [address], USANucleated RBC/100 WBC (Bld) [Ratio]0 %Normal0-0The [facility] Medical CenterComment on above:Order Comment: No: Do not add to previous drawPerformed By: #### 70316 #### [facility] [address] [place] [address], USAPLAT QPM971 10*3/rAYfgjuj624-745Lzp [facility] CenterComment on above:Order Comment: No: Do not add to previous draw Performed By: #### 26211 #### [facility] [address] [place] [address], USARBC (Bld) [#/Vol]4.54 10*6/uLNormal3.80-5.00The [facility] CenterComment on above:Order Comment: No: Do not add to previous drawPerformed By: #### 37808 #### [facility] [address] [place] [address], USAWBC (Bld) [#/Vol]6.38 10*3/uLNormal4.00-10.60The [facility] Medical CenterComment on above:Order Comment: No: Do not add to previous drawPerformed By: #### 99477 #### [facility] [address] [place] [address], USAPOC GLUCOSE LABon 36-68-8645Grlythz [Mass/Vol]164 mg/dLHigh 70-100The [facility] CenterComment on above:Performed By: #### 30414 #### [facility] [address] [place] [address], USAGlucose [Mass/Vol]137 mg/pWWzcu60-388Tyy [facility] CenterComment on above:Performed By: #### 14210 ####[facility] [place] [address], USAGlucose [Mass/Vol] 247 mg/nKTypj98-908Sum [facility] CenterComment on above: Performed By: #### 99835 ####[facility] [place] [address], USAGlucose [Mass/Vol]154 mg/dCQqbm96-449Rxx [facility] CenterComment on above:Performed By: #### 17697 ####[facility] [place] [address], USAGlucose [Mass/Vol] 158 mg/nLYvcq39-812Lit [facility] CenterComment on above: Performed By: #### 17197 #### [facility] [address] [place] [address], USAPOC GLUCOSE LABon 09-61-9523Lmhoqdp [Mass/Vol]144 mg/dLHigh 70-100The [facility] CenterComment on above:Performed By: #### 49648 #### [facility] [address] [place] [address], USAGlucose [Mass/Vol]184 mg/yYNlgr11-357Nyk [facility] CenterComment on above:Performed By: #### 71983 ####[facility] [place] [address], USAGlucose [Mass/Vol] 171 mg/kKBjtc40-251Rcp [facility] CenterComment on above: Performed By: #### 93470 ####[facility] [place] [address], USAGlucose [Mass/Vol]98 mg/tDAcnobl11-819Pte [facility] CenterComment on above:Performed By: #### 29527 #### [facility] [address] [place] [address], USAPOC GLUCOSE LABon 33-60-4718Atsfler [Mass/Vol]220 mg/dLHigh 70-100The [facility] CenterComment on above:Performed By: #### 03753 ####[facility] [place] [address], USAGlucose [Mass/Vol]215 mg/dQLmfk59-522Ayr [facility] CenterComment on above:Performed By: #### 07734 ####[facility] [place] [address], USAGlucose [Mass/Vol]288 mg/dLHigh 70-100The [facility] CenterComment on above:Performed By: #### 18599 #### [facility] [address] [place] [address], USAPOC GLUCOSE LABon 67-97-6088Irkwdyp [Mass/Vol]111 mg/dLHigh 70-100The [facility] CenterComment on above:Performed By: #### 94755 #### [facility] [address] [place] [address], USAGlucose [Mass/Vol]144 mg/tZOfbx96-009Uem [facility] CenterComment on above:Performed By: #### 83717 #### [facility] [address] [place] [address], USAGlucose [Mass/Vol]151 mg/nRXigp55-392Lpj [facility] CenterComment on above:Performed By: #### 47570 ####[facility] [place] [address], USAGlucose [Mass/Vol] 157 mg/yFAwpo65-579Avu [facility] CenterComment on above: Performed By: #### 51019 ####[facility] [place] [address], USAGlucose [Mass/Vol]154 mg/dKZerl63-480Hid [facility] CenterComment on above:Performed By: #### 17157 ####[facility] [place] [address], USABASIC METABOLIC PANELon 78-09-4205Cpkndkz [Mass/Vol]9.2 mg/dLNormal8.6-10.3The [facility] CenterComment on above:Order Comment: No: Do not add to previous drawPerformed By: #### 68455, 22326 #### [facility] [address] [place] [address], USAChloride [Moles/Vol]101 mmol/XKrkkxp94-966Slw [facility] CenterComment on above:Order Comment: No: Do not add to previous drawPerformed By: #### 88228, 60662 #### [facility] [address] [place] [place] [address], USACO2 [Moles/Vol]26 mmol/RYqwhxq37-21Teh [facility] CenterComment on above:Order Comment: No: Do not add to previous draw Performed By: #### 13031, 17204 #### [facility] [address] [place] [address], USACreatinine [Mass/Vol]0.75 mg/dLNormal0.60-1.20The [facility] CenterComment on above:Order Comment: No: Do not add to previous drawPerformed By: #### 15464, 73189 #### [facility] [address] [place] [address], USAGFR/1.73 sq M predicted among blacks MDRD (S/P/Bld) [Vol rate/Area]mL/min/{1.73_m2}Normal>60The [facility] Comment on above:Order Comment: No: Do not add to previous drawPerformed By: #### 68721, 14676 #### [facility] [address] [place] [address], USAGFR/1.73 sq M predicted among non-blacks MDRD (S/P/Bld) [Vol rate/Area]mL/min/{1.73_m2}Normal>60The [facility] Comment on above:Order Comment: No: Do not add to previous drawPerformed By: #### 69299, 56772 #### [facility] [address] [place] [place] [address], USAGlucose [Mass/Vol]343 mg/dYHpjp77-977Nvx [facility] CenterComment on above:Order Comment: No: Do not add to previous drawPerformed By: #### 65538, 19327 #### [facility] [address] [place] [address], USAPotassium [Moles/Vol]3.6 mmol/LNormal3.5-5.1The [facility] CenterComment on above:Order Comment: No: Do not add to previous drawPerformed By: #### 50403, 01162 #### [facility] [address] [facility] [place] [address], USASodium [Moles/Vol]137 mmol/NNoagge495-703Alo [facility] CenterComment on above:Order Comment: No: Do not add to previous drawPerformed By: #### 78485, 89097 #### [facility] [address] [facility] [place] [address], USAUrea nitrogen [Mass/Vol]15 mg/dLNormal7-25The [facility] CenterComment on above:Order Comment: No: Do not add to previous drawPerformed By: #### 80527, 94757 #### [facility] [address] [facility] [place] [address], [facility] PSYCHIATRIC CENTERCBC W/DIFFon [id number] BASOPHILS0.0 10*3/uLNormal 0.0-0.2The [facility] CenterComment on above:Order Comment: No: Do not add to previous drawPerformed By: #### 85036 #### [facility] [address] [facility] [place] [address], UN[facility] PSYCHIATRIC CENTERABS IMM GRANS0.0 10*3/uLNormal0.0-0.2The [facility] CenterComment on above:Order Comment: No: Do not add to previous drawPerformed By: #### 23312 #### [facility] [address] [facility] [place] [address], UN[facility] PSYCHIATRIC CENTERABS NEUTROPHILS4.0 10*3/uLNormal1.6-7.6The [facility] CenterComment on above:Order Comment: No: Do not add to previous drawPerformed By: #### 51387 #### [facility] [address] [place] [address], USABasophils/100 WBC (Bld)0.7 %Normal0.0-1.0The [facility] CenterComment on above:Order Comment: No: Do not add to previous drawPerformed By: #### 41121 #### [facility] [address] [place] [address], USAEosinophils (Bld) [#/Vol]0.3 10*3/uLNormal0.0-0.5The [facility] CenterComment on above:Order Comment: No: Do not add to previous drawPerformed By: #### 53115 #### [facility] [address] [place] [address], USAEosinophils/100 WBC (Bld)4.7 %Normal0.0-6.0The [facility] CenterComment on above:Order Comment: No: Do not add to previous drawPerformed By: #### 62601 #### [facility] [address] [facility] [address], USAErythrocyte distribution width (RBC) [Ratio]15.0 %Normal 11.5-15.0The [facility] CenterComment on above:Order Comment: No: Do not add to previous drawPerformed By: #### 33398 #### [facility] [address] [place] [address], USAHematocrit (Bld) [Volume fraction]38.0 %Swxjdg80.0-45.0The [facility] CenterComment on above:Order Comment: No: Do not add to previous drawPerformed By: #### 69338 #### [facility] [address] [place] [address], USAHemoglobin (Bld) [Mass/Vol]12.4 g/oUJkzwvz52.0-15.0The [facility] CenterComment on above:Order Comment: No: Do not add to previous drawPerformed By: #### 32472 #### [facility] [address] [place] [address], USAIMMATURE GRANS0.3 %Normal0.0-1.0The [facility] CenterComment on above:Order Comment: No: Do not add to previous draw Performed By: #### 33726 #### [facility] [address] [place] [address], USALymphocytes (Bld) [#/Vol]1.1 10*3/uLLow1.2-4.0The [facility] CenterComment on above:Order Comment: No: Do not add to previous drawPerformed By: #### 23686 #### [facility] [address] [place] [address], USALymphocytes/100 WBC (Bld)18.1 %Low20.0-45.0The [facility] CenterComment on above:Order Comment: No: Do not add to previous drawPerformed By: #### 23893 #### [facility] [address] [place] [address], [facility] (RBC) [Entitic mass]29.1 cuBdvepm98.0-33.0The [facility] CenterComment on above:Order Comment: No: Do not add to previous drawPerformed By: #### 60327 #### [facility] [address] [place] [address], [facility] CITYHC (RBC) [Mass/Vol]32.6 g/zCIomhmm30.0-35.0The [facility] CenterComment on above:Order Comment: No: Do not add to previous drawPerformed By: #### 88684 #### [facility] [address] [place] [address], [facility] (RBC) [Entitic vol]89.2 fLNdbqzu18.0-98.0The [facility] CenterComment on above:Order Comment: No: Do not add to previous drawPerformed By: #### 55917 #### [facility] [address] [place] [address], USAMonocytes (Bld) [#/Vol]0.6 10*3/uLNormal0.1-1.0The [facility] CenterComment on above:Order Comment: No: Do not add to previous drawPerformed By: #### 14000 #### [facility] [address] [place] [address], USAMONOS9.6 %Normal5.0-12.0The [facility] CenterComment on above:Order Comment: No: Do not add to previous drawPerformed By: #### 74904 #### [facility] [address] [place] [address], USANeutrophils/100 WBC (Bld)66.6 %Chmanz17.0-72.0The [facility] CenterComment on above:Order Comment: No: Do not add to previous drawPerformed By: #### 36963 #### [facility] [address] [place] [address], USANucleated RBC/100 WBC (Bld) [Ratio]0 %Normal0-0The [facility] CenterComment on above:Order Comment: No: Do not add to previous drawPerformed By: #### 29189 #### [facility] [address] [place] [address], USAPLAT JME240 10*3/cRHxycrd926-411Bmr [facility] CenterComment on above:Order Comment: No: Do not add to previous draw Performed By: #### 11357 #### [facility] [address] [place] [address], USARBC (Bld) [#/Vol]4.26 10*6/uLNormal3.80-5.00The [facility] CenterComment on above:Order Comment: No: Do not add to previous drawPerformed By: #### 67911 #### [facility] [address] [place] [address], USAWBC (Bld) [#/Vol]5.96 10*3/uLNormal4.00-10.60The [facility] CenterComment on above:Order Comment: No: Do not add to previous drawPerformed By: #### 65020 #### [facility] [address] [place] [address], USAMAGNESIUM BLOODon 49-97-1646Wxlhfwvzb [Mass/Vol]1.7 mg/dL Low1.9-2.7The [facility] CenterComment on above:Order Comment: No: Do not add to previous drawPerformed By: #### 88341, 75333 #### [facility] [address] [place] [address], USAPOC GLUCOSE LABon 79-26-3141Mgxcxjf [Mass/Vol]143 mg/dLHigh 70-100The [facility] CenterComment on above:Performed By: #### 23483 #### [facility] [address] [place] [address], USAGlucose [Mass/Vol]226 mg/eUHmdo10-424Eop [facility] CenterComment on above:Performed By: #### 35309 #### [facility] [address] [place] [address], USAGlucose [Mass/Vol]340 mg/vNHtsj54-781Qcj [facility] CenterComment on above:Performed By: #### 06271 #### [facility] [address] [place] [address], USABASIC METABOLIC PANELon 67-71-5914Irlyerv [Mass/Vol]9.1 mg/dLNormal8.6-10.3The [facility] CenterComment on above:Order Comment: No: Do not add to previous drawPerformed By: #### 75812, 50851 #### [facility] [address] [place] [address], USAChloride [Moles/Vol]104 mmol/BVfkbri72-976Qow [facility] CenterComment on above:Order Comment: No: Do not add to previous drawPerformed By: #### 13078, 88124 #### [facility] [address] [place] [address], USACO2 [Moles/Vol]27 mmol/DHjvsdh55-61Dty [facility] CenterComment on above:Order Comment: No: Do not add to previous draw Performed By: #### 56217, 03155 #### [facility] [address] [place] [address], USACreatinine [Mass/Vol]0.69 mg/dLNormal0.60-1.20The [facility] CenterComment on above:Order Comment: No: Do not add to previous drawPerformed By: #### 73746, 80842 #### [facility] [address] [place] [address], USAGFR/1.73 sq M predicted among blacks MDRD (S/P/Bld) [Vol rate/Area]mL/min/{1.73_m2}Normal>60The [facility] Comment on above:Order Comment: No: Do not add to previous drawPerformed By: #### 49603, 39497 #### [facility] [address] [place] [address], USAGFR/1.73 sq M predicted among non-blacks MDRD (S/P/Bld) [Vol rate/Area]mL/min/{1.73_m2}Normal>60The [facility] Comment on above:Order Comment: No: Do not add to previous drawPerformed By: #### 49938, 38017 #### [facility] [address] [place] [address], USAGlucose [Mass/Vol]192 mg/yFOqen79-090Xcf [facility] CenterComment on above:Order Comment: No: Do not add to previous drawPerformed By: #### 05631, 59272 #### [facility] [address] [place] [address], USAPotassium [Moles/Vol]3.2 mmol/LLow3.5-5.1The [facility] CenterComment on above:Order Comment: No: Do not add to previous drawPerformed By: #### 12205, 46357 #### [facility] [address] [place] [address], USASodium [Moles/Vol]139 mmol/SFezhgq336-493Htr [facility] CenterComment on above:Order Comment: No: Do not add to previous drawPerformed By: #### 28347, 67338 #### [facility] [address] [facility] [place] [address], USAUrea nitrogen [Mass/Vol]13 mg/dLNormal7-25The [facility] CenterComment on above:Order Comment: No: Do not add to previous drawPerformed By: #### 60309, 46226 #### [facility] [address] [facility] [place] [address], [facility]AT[facility] CENTERCBC W/DIFFon [id number] BASOPHILS0.1 10*3/uLNormal 0.0-0.2The [facility] CenterComment on above:Order Comment: No: Do not add to previous drawPerformed By: #### 77992 #### [facility] [address] [facility] [address], [facility] PS[facility]ATR[facility] CENTERABS IMM GRANS0.0 10*3/uLNormal0.0-0.2The [facility] CenterComment on above:Order Comment: No: Do not add to previous drawPerformed By: #### 30322 #### [facility] [address] [facility] [address], [facility] PS[facility]ATR[facility] CENTERABS NEUTROPHILS3.7 10*3/uLNormal1.6-7.6The [facility] CenterComment on above:Order Comment: No: Do not add to previous drawPerformed By: #### 28594 #### [facility] [address] [place] [address], USABasophils/100 WBC (Bld)0.8 %Normal0.0-1.0The [facility] CenterComment on above:Order Comment: No: Do not add to previous drawPerformed By: #### 14283 #### [facility] [address] [place] [address], USAEosinophils (Bld) [#/Vol]0.3 10*3/uLNormal0.0-0.5The [facility] CenterComment on above:Order Comment: No: Do not add to previous drawPerformed By: #### 55540 #### [facility] [address] [place] [address], USAEosinophils/100 WBC (Bld)4.4 %Normal0.0-6.0The [facility] CenterComment on above:Order Comment: No: Do not add to previous drawPerformed By: #### 16664 #### [facility] [address] [place] [address], USAErythrocyte distribution width (RBC) [Ratio]14.7 %Normal 11.5-15.0The [facility] CenterComment on above:Order Comment: No: Do not add to previous drawPerformed By: #### 58609 #### [facility] [address] [place] [address], USAHematocrit (Bld) [Volume fraction]38.4 %Njgvwt65.0-45.0The [facility] CenterComment on above:Order Comment: No: Do not add to previous drawPerformed By: #### 02092 #### [facility] [address] [place] [address], USAHemoglobin (Bld) [Mass/Vol]12.2 g/qAQepqpv07.0-15.0The [facility] CenterComment on above:Order Comment: No: Do not add to previous drawPerformed By: #### 00465 #### [facility] [address] [place] [address], USAIMMATURE GRANS0.5 %Normal0.0-1.0The [facility] CenterComment on above:Order Comment: No: Do not add to previous draw Performed By: #### 90845 #### [facility] [address] [place] [address], USALymphocytes (Bld) [#/Vol]1.3 10*3/uLNormal1.2-4.0The [facility] CenterComment on above:Order Comment: No: Do not add to previous drawPerformed By: #### [id number] #### [facility] [address] [place] [address], USALymphocytes/100 WBC (Bld)22.0 %Tzwjca25.0-45.0The [facility] CenterComment on above:Order Comment: No: Do not add to previous drawPerformed By: #### [id number] #### [facility] [address] [place] [address], [facility] (RBC) [Entitic mass]28.6 lhSgrbku00.0-33.0The [facility] CenterComment on above:Order Comment: No: Do not add to previous drawPerformed By: #### [id number] #### [facility] [address] [place] [address], [facility] (RBC) [Mass/Vol]31.8 g/dLLow32.0-35.0The [facility] CenterComment on above:Order Comment: No: Do not add to previous drawPerformed By: #### [id number] #### [facility] [address] [place] [address], USAMCV (RBC) [Entitic vol]90.1 yBYmiqln78.0-98.0The [facility] CenterComment on above:Order Comment: No: Do not add to previous drawPerformed By: #### [id number] #### [facility] [address] [place] [address], USAMonocytes (Bld) [#/Vol]0.7 10*3/uLNormal0.1-1.0The [facility] Medical CenterComment on above:Order Comment: No: Do not add to previous drawPerformed By: #### 42976 #### [facility] [address] [place] [address], QCSFOVJQ89.1 %Normal5.0-12.0The [facility] Medical CenterComment on above:Order Comment: No: Do not add to previous drawPerformed By: #### 90855 #### [facility] [address] [place] [address], USANeutrophils/100 WBC (Bld)61.2 %Mnkxza82.0-72.0The [facility] Medical CenterComment on above:Order Comment: No: Do not add to previous drawPerformed By: #### 58686 #### [facility] [address] [facility] [place] [address], USANucleated RBC/100 WBC (Bld) [Ratio]0 %Normal0-0The [facility] Medical CenterComment on above:Order Comment: No: Do not add to previous drawPerformed By: #### 16650 #### [facility] [address] [facility] [place] [address], USAPLAT SZJ389 10*3/tOKmxmgb216-274Dcx [facility] CenterComment on above:Order Comment: No: Do not add to previous draw Performed By: #### 22369 #### [facility] [address] [place] [address], USARBC (Bld) [#/Vol]4.26 10*6/uLNormal3.80-5.00The [facility] CenterComment on above:Order Comment: No: Do not add to previous drawPerformed By: #### 04859 #### [facility] [address] [place] [address], USAWBC (Bld) [#/Vol]5.96 10*3/uLNormal4.00-10.60The [facility] CenterComment on above:Order Comment: No: Do not add to previous drawPerformed By: #### 79368 #### [facility] [address] [place] [address], USAPOC GLUCOSE LABon 59-42-1732Chghqhb [Mass/Vol]161 mg/dLHigh 70-100The [facility] CenterComment on above:Performed By: #### 85864 #### [facility] [address] [place] [address], USABASIC METABOLIC PANELon 21-88-6984Wxdzpov [Mass/Vol]8.5 mg/dLLow8.6-10.3The [facility] CenterComment on above:Order Comment: No: Do not add to previous drawPerformed By: #### 84200, 97570 #### [facility] [address] [place] [address], USAChloride [Moles/Vol]103 mmol/ANjhsgj05-687Tnf [facility] CenterComment on above:Order Comment: No: Do not add to previous drawPerformed By: #### 58787, 10371 #### [facility] [address] [place] [address], USACO2 [Moles/Vol]24 mmol/PMcmkhc74-97Nfj [facility] CenterComment on above:Order Comment: No: Do not add to previous draw Performed By: #### 44233, 06863 #### [facility] [address] [place] [address], USACreatinine [Mass/Vol]0.76 mg/dLNormal0.60-1.20The [facility] CenterComment on above:Order Comment: No: Do not add to previous drawPerformed By: #### 38391, 85027 #### [facility] [address] [place] [address], USAGFR/1.73 sq M predicted among blacks MDRD (S/P/Bld) [Vol rate/Area]mL/min/{1.73_m2}Normal>60The [facility] Comment on above:Order Comment: No: Do not add to previous drawPerformed By: #### 71822, 47388 #### [facility] [address] [place] [address], USAGFR/1.73 sq M predicted among non-blacks MDRD (S/P/Bld) [Vol rate/Area]mL/min/{1.73_m2}Normal>60The [facility] Comment on above:Order Comment: No: Do not add to previous drawPerformed By: #### 59913, 00322 #### [facility] [address] [place] [address], USAGlucose [Mass/Vol]224 mg/wDFgeu77-679Jmg [facility] CenterComment on above:Order Comment: No: Do not add to previous drawPerformed By: #### 08035, 36188 #### [facility] [address] [place] [address], USAPotassium [Moles/Vol]4.0 mmol/LNormal3.5-5.1The [facility] CenterComment on above:Order Comment: No: Do not add to previous drawPerformed By: #### 12054, 12669 #### [facility] [address] [place] [address], USASodium [Moles/Vol]134 mmol/CRwq988-552Mjn [facility] CenterComment on above:Order Comment: No: Do not add to previous drawPerformed By: #### 02665, 17309 #### [facility] [address] [facility] [place] [address], USAUrea nitrogen [Mass/Vol]16 mg/dLNormal7-25The [facility] CenterComment on above:Order Comment: No: Do not add to previous drawPerformed By: #### 67042, 57079 #### [facility] [address] [facility] [place] [address], USACBC W/DIFFon 87-07-2492PLP BASOPHILS0.1 10*3/uLNormal 0.0-0.2The [facility] CenterComment on above:Order Comment: No: Do not add to previous drawPerformed By: #### 73006, 32561 #### [facility] [address] [place] [address], USAABS IMM GRANS0.1 10*3/uLNormal0.0-0.2The [facility] CenterComment on above:Order Comment: No: Do not add to previous drawPerformed By: #### 52495, 91629 #### [facility] [address] [place] [address], USAABS NEUTROPHILS6.5 10*3/uLNormal1.6-7.6The [facility] CenterComment on above:Order Comment: No: Do not add to previous drawPerformed By: #### 85451, 18017 #### [facility] [address] [place] [address], USABasophils/100 WBC (Bld)0.7 %Normal0.0-1.0The [facility] Medical CenterComment on above:Order Comment: No: Do not add to previous drawPerformed By: #### 65147, 67468 #### [facility] [address] [place] [address], USAEosinophils (Bld) [#/Vol]0.2 10*3/uLNormal0.0-0.5The [facility] CenterComment on above:Order Comment: No: Do not add to previous drawPerformed By: #### 83075, 28598 #### [facility] [address] [place] [address], USAEosinophils/100 WBC (Bld)2.5 %Normal0.0-6.0The [facility] Medical CenterComment on above:Order Comment: No: Do not add to previous drawPerformed By: #### 41307, 81101 #### [facility] [address] [place] [address], USAErythrocyte distribution width (RBC) [Ratio]14.9 %Normal 11.5-15.0The [facility] Medical CenterComment on above:Order Comment: No: Do not add to previous drawPerformed By: #### 54194, 54578 #### [facility] [address] [place] [address], USAHematocrit (Bld) [Volume fraction]37.8 %Inmhfr93.0-45.0The [facility] CenterComment on above:Order Comment: No: Do not add to previous drawPerformed By: #### 82674, 31210 #### [facility] [address] [facility] [place] [address], USAHemoglobin (Bld) [Mass/Vol]12.0 g/bMKuoigv68.0-15.0The [facility] CenterComment on above:Order Comment: No: Do not add to previous drawPerformed By: #### 50401, 89406 #### [facility] [address] [place] [address], USAIMMATURE GRANS0.6 %Normal0.0-1.0The [facility] Medical CenterComment on above:Order Comment: No: Do not add to previous draw Performed By: #### 70234, 27156 #### [facility] [address] [place] [address], USALymphocytes (Bld) [#/Vol]1.0 10*3/uLLow1.2-4.0The [facility] CenterComment on above:Order Comment: No: Do not add to previous drawPerformed By: #### 84696, 86863 #### [facility] [address] [place] [address], USALymphocytes/100 WBC (Bld)11.3 %Low20.0-45.0The [facility] Medical CenterComment on above:Order Comment: No: Do not add to previous drawPerformed By: #### 50888, 14088 #### [facility] [address] [place] [address], [facility] PS[facility]ATR[facility] CENTERMCH (RBC) [Entitic mass]29.0 afIjhyen19.0-33.0The [facility] CenterComment on above:Order Comment: No: Do not add to previous drawPerformed By: #### 57049, 04614 #### [facility] [address] [place] [address], [facility] PSYCHIATRIC CENTERMCHC (RBC) [Mass/Vol]31.7 g/dLLow32.0-35.0The [facility] CenterComment on above:Order Comment: No: Do not add to previous drawPerformed By: #### 44196, 54920 #### [facility] [address] [place] [address], [facility] PSYCHIATRIC CENTERMCV (RBC) [Entitic vol]91.3 oNYazwim08.0-98.0The [facility] CenterComment on above:Order Comment: No: Do not add to previous drawPerformed By: #### 72350, 84931 #### [facility] [address] [place] [address], USAMonocytes (Bld) [#/Vol]0.9 10*3/uLNormal0.1-1.0The [facility] CenterComment on above:Order Comment: No: Do not add to previous drawPerformed By: #### 85927, 08325 #### [facility] [address] [place] [address], QZRJUTHP05.3 %Normal5.0-12.0The [facility] CenterComment on above:Order Comment: No: Do not add to previous drawPerformed By: #### 20290, 51380 #### [facility] [address] [place] [address], USANeutrophils/100 WBC (Bld)74.6 %High40.0-72.0The [facility] CenterComment on above:Order Comment: No: Do not add to previous drawPerformed By: #### 78002, 80133 #### [facility] [address] [place] [address], USANucleated RBC/100 WBC (Bld) [Ratio]0 %Normal0-0The [facility] CenterComment on above:Order Comment: No: Do not add to previous drawPerformed By: #### 74194, 11800 #### [facility] [address] [place] [address], USAPLAT KDP929 10*3/dNHvobso248-126Nfy [facility] CenterComment on above:Order Comment: No: Do not add to previous draw Performed By: #### 14414, 98376 #### [facility] [address] [place] [address], USARBC (Bld) [#/Vol]4.14 10*6/uLNormal3.80-5.00The [facility] CenterComment on above:Order Comment: No: Do not add to previous drawPerformed By: #### 07884, 27485 #### [facility] [address] [place] [address], USAWBC (Bld) [#/Vol]8.65 10*3/uLNormal4.00-10.60The [facility] CenterComment on above:Order Comment: No: Do not add to previous drawPerformed By: #### 44064, 50313 #### [facility] [address] [place] [address], USAMAGNESIUM BLOODon 07-54-4147Usywrluej [Mass/Vol]1.8 mg/dL Low1.9-2.7The [facility] CenterComment on above:Order Comment: No: Do not add to previous drawPerformed By: #### 11479, 66336 #### [facility] [address] [place] [address], USAPOC GLUCOSE LABon 99-89-9466Jdclyuu [Mass/Vol]157 mg/dLHigh 70-100The [facility] CenterComment on above:Performed By: #### 84957 #### [facility] [address] [place] [address], [facility]*MRSA/MSSA CULTUREon 07-01-2020*MRSA/MSSA CULTUREClinical Report: (D) Specimen: NASAL SWAB Collected: 07/01/2020 10:15 Status: Final Last Updated: 07/02/2020 10:18 ISO (Final) No Methicillin Sensitive Staphylococcus aureus Isolated (MSSA) ISO (Final) No Methicillin Resistant Staphylococcus aureus Isolated (MRSA) This result added by MIGUEL A on 07/02/2020 10:18. The previous result was: CULT RES (Final) No Methicillin Resistant Staphylococcus aureus Isolated (MRSA) ISO (Final) No previously released data found.NormalThe [facility] Comment on above:Performed By: #### 05244 #### [facility] [address] [facility] [address], USALUMBAR SPINE 2 OR 3 VWSon 43-69-6511IPDVWV SPINE 2 OR 3 VWS [facility] Department of Radiology [address] [place] [address] Patient Name: MONICA ACOSTA : 1960 Sex: F Age: Race: White Pt. Location: [id number] Patient Status: I Ordered Date: 07/01/2020 7:00:00 [...] reports Electronically signed: Richard Clarke. Transcribed by: [email or web address], User Resident: BOGDAN SOTELO Electronically Signed by: RICHARD CLARKE @ 07/01/2020 08:54 PM I personally read this/these film(s) with this residentDoctors HospitalComment on above:Order Comment: No: Do not add to previous drawOperative Reporton [id number] ReportMR#: [id number] I [facility] Pt. Name: Monica Acosta Room #: [id number] Discharge Date: Birthdate: 1960 OPERATIVE REPORT DATE OF SURGERY: 07/01/2020 SURGEON: Chilango Martinez M.D. NETWORK SUPPORT SPECIALIST: Ant Jolley M.D. PREOPERATIVE DIAGNOSIS: L1 vertebral compression fracture secondary to osteoporosis (ICD-10 M80.08XA). ANESTHESIA: General endotracheal. POSITION: Prone position on the Chris table in reverse Trendelenburg position. OPERATION: 1. L1 vertebroplasty (14516). 2. Use of intraoperative fluoroscopy (02862). POSTOPERATIVE DIAGNOSIS: Y4vteezkfei compression fracture secondary to osteoporosis (ICD-10 M80.08XA). [...] lateral, the cement from [employer] system from [employer] was mixed. Cement was injected under live [...] Martinez M.D. Date Trans: 07/01/2020 12:25 P/ _JN:[id number] Valley Community Hospital GLUCOSE LAB on 56-54-8769Linxlxt [Mass/Vol]142 mg/xZMrbe69-454Xzq [facility] CenterComment on above:Performed By: #### 17308 ####[facility] [facility] [place] [address], USAGlucose [Mass/Vol]156 mg/tJEymj42-962Hng [facility] CenterComment on above:Performed By: #### 93104 #### [facility] [address] [facility] [place] [address], USAGlucose [Mass/Vol]187 mg/hUVkoq79-055Nwt [facility] CenterComment on above:Performed By: #### 80567 #### [facility] [address]*SARS-CoV-2 COVID-19on 55-57-0414IVFP-COVID-19Not Detected NormalNot DetectedThe [facility] Medical CenterComment on above:Order Comment: The Aptima SARS-CoV-2 assay is a nucleic acid amplification test intended for the qualitative detection of RNA from SARS-CoV-2 isolated and purified from nasopharyngeal (SANDBLASTER STONE),oropharyngeal (OP), nasal swab, sputum, and bronchoalveolar lavage (BAL) specimens from patients with signs and symptoms of infection who are suspected of COVID-19. Results are for the identification of SARS-CoV-2 RNA. The SARS-CoV-2 RNA is generally detectable during the acute phase of infection. The Aptima SARS-CoV-2 Assay on the [employer] and [employer] Fusion system is intended for use by laboratory personnel specifically instructed and trained in the operation of the [employer] Fusion system. The Aptima SARS-CoV-2 assay is [...] with clinical observations, patient history, and epidemiological information.Performed By: #### 47111 #### [facility] [address] [facility] [place] [address], [facility] PSYCHIATRIC CENTERAPTSan Carlos Apache [facility] 84-92-7837xRPV Coag (Bld) [Time]22.4 sLow25.0-35.0 The [facility] Medical CenterComment on above:Result Comment: ALL RESULTS MUST BE INTERPRETED WITH RESPECT TO BLOOD DRAWING ARTIFACT OR DILUTION ERROR OF ANTICOAGULANT AT THE TIME OF SAMPLING. THE APTT SHOULD NOT BE USED TO MONITOR UNFRACTIONATED HEPARIN THERAPY, THIS LABORATORY NO LONGER HAS AN ESTABLISHED THERAPEUTIC RANGE BASED ON THE APTT. IT IS RECOMMENDED THAT THE UFH - HEPARIN ASSAY (ANTI-XA ACTIVITY) BE USED FOR THIS PURPOSE.Performed By: #### 21745 #### [facility] [address] [facility] [place] [address], [facility] PSYCHIATRIC CENTERBASIC METABOLIC PANELon 95-74-4559Rturboe [Mass/Vol]9.5 mg/dLNormal8.6-10.3The [facility] CenterComment on above: Performed By: #### 06537 #### [facility] [address] [place] [address], USAChloride [Moles/Vol]95 mmol/REkn57-362Xvu [facility] CenterComment on above:Performed By: #### 02863 #### [facility] [address] [place] [place] [address], USACO2 [Moles/Vol]21 mmol/DAaszyr46-01Sxr [facility] CenterComment on above:Performed By: #### 37602 #### [facility] [address] [place] [place] [address], USACreatinine [Mass/Vol]1.00 mg/dLNormal0.60-1.20The [facility] CenterComment on above:Performed By: #### 27444 #### [facility] [address] [place] [address], USAGFR/1.73 sq M predicted among blacks MDRD (S/P/Bld) [Vol rate/Area]mL/min/{1.73_m2}Normal>60The [facility] Comment on above:Performed By: #### 83775 #### [facility] [address] [place] [address], USAGFR/1.73 sq M predicted among non-blacks MDRD (S/P/Bld) [Vol rate/Area]56 ml/min/1.73sq mAbnormal>60The [facility] CenterComment on above:Performed By: #### 54571 #### [facility] [address] [place] [place] [address], USAGlucose [Mass/Vol]395 mg/vWXlhm06-924Yhk [facility] CenterComment on above:Performed By: #### 69611 #### [facility] [address] [facility] [place] [address], USAPotassium [Moles/Vol]4.4 mmol/LNormal3.5-5.1The [facility] CenterComment on above:Performed By: #### 06240 #### [facility] [address] [facility] [place] [address], USASodium [Moles/Vol]134 mmol/CQps163-243Gai [facility] CenterComment on above:Performed By: #### 22882 #### [facility] [address] [facility] [place] [address], USAUrea nitrogen [Mass/Vol]24 mg/dLNormal7-25The [facility] CenterComment on above:Performed By: #### 62455 #### [facility] [address] [facility] [place] [address], [facility] PSYCHIATRIC CENTERBNP (B-TYPE NATRIURETIC PEPTIDE)on 49-02-3242Zjyoxcfkept peptide B (Bld) [Mass/Vol]27 pg/mLNormal0-100The [facility] CenterComment on above:Order Comment: No: Do not add to previous drawResult Comment: Given the appropriate clinical setting a BNP result of >100 pg/mL indicates congestive heart failure.Performed By: #### 80606, 14211 #### [facility] [address] [facility] [place] [address], UN[facility] PSYCHIATRIC CENTERCBC W/DIFFon 20-04-6804PRR BASOPHILS0.1 10*3/uLNormal 0.0-0.2The [facility] CenterComment on above:Performed By: #### 18761 #### [facility] [address] [facility] [place] [address], UNM PSYCHIATRIC CENTERABS IMM GRANS0.1 10*3/uLNormal0.0-0.2The [facility] CenterComment on above:Performed By: #### 71771 #### [facility] [address] [facility] [address], USAABS XEFIPBOTJBE08.3 10*3/uLHigh1.6-7.6The [facility] CenterComment on above:Performed By: #### 56632 #### [facility] [address] [place] [address], USABasophils/100 WBC (Bld)0.7 %Normal0.0-1.0The [facility] CenterComment on above:Performed By: #### 83914 #### [facility] [address] [place] [address], USAEosinophils (Bld) [#/Vol]0.2 10*3/uLNormal0.0-0.5The [facility] CenterComment on above:Performed By: #### 97039 #### [facility] [address] [facility] [place] [address], USAEosinophils/100 WBC (Bld)1.4 %Normal0.0-6.0The [facility] CenterComment on above:Performed By: #### 21545 #### [facility] [address] [place] [address], USAErythrocyte distribution width (RBC) [Ratio]14.7 %Normal 11.5-15.0The [facility] Medical CenterComment on above:Performed By: #### 39253 #### [facility] [address] [place] [address], USAHematocrit (Bld) [Volume fraction]47.7 %High36.0-45.0The [facility] CenterComment on above:Performed By: #### 42069 #### [facility] [address] [place] [address], USAHemoglobin (Bld) [Mass/Vol]15.3 g/cNRlwd09.0-15.0The [facility] CenterComment on above:Performed By: #### 68103 #### [facility] [address] [facility] [place] [address], USAIMMATURE GRANS0.6 %Normal0.0-1.0The [facility] CenterComment on above:Performed By: #### 07460 #### [facility] [address] [facility] [place] [address], USALymphocytes (Bld) [#/Vol]1.4 10*3/uLNormal1.2-4.0The [facility] CenterComment on above:Performed By: #### 88544 #### [facility] [address] [facility] [place] [address], [facility] PSYCHIATRIC CENTERLymphocytes/100 WBC (Bld)11.0 %Low20.0-45.0The [facility] CenterComment on above:Performed By: #### 37804 #### [facility] [address] [facility] [place] [address], [facility] CITYH (RBC) [Entitic mass]28.7 umXtioey05.0-33.0The [facility] CenterComment on above:Performed By: #### 28227 #### [facility] [address] [place] [address], [facility] PSYCHIATRIC CENTERMCHC (RBC) [Mass/Vol]32.1 g/qCLwqbkk05.0-35.0The [facility] CenterComment on above:Performed By: #### 82903 #### [facility] [address] [place] [address], [facility] PSYCHIATRIC CENTERMCV (RBC) [Entitic vol]89.3 dKVlyjwi33.0-98.0The [facility] CenterComment on above:Performed By: #### 15531 #### [facility] [address] [place] [address], [facility] PSYCHIATRIC CENTERMonocytes (Bld) [#/Vol]1.0 10*3/uLNormal0.1-1.0The [facility] CenterComment on above:Performed By: #### 64080 #### [facility] [address] [place] [address], USAMONOS7.4 %Normal5.0-12.0The [facility] CenterComment on above:Performed By: #### 99423 #### [facility] [address] [place] [address], USANeutrophils/100 WBC (Bld)78.9 %High40.0-72.0The [facility] CenterComment on above:Performed By: #### 76028 #### [facility] [address] [place] [address], USANucleated RBC/100 WBC (Bld) [Ratio]0 %Normal0-0The [facility] CenterComment on above:Performed By: #### 33491 #### [facility] [address] [place] [address], [place]APLAT WZZ639 10*3/fLMivaoj832-437Ipp [facility] CenterComment on above:Performed By: #### 18043 #### [facility] [address] [place] [address], USARBC (Bld) [#/Vol]5.34 10*6/uLHigh3.80-5.00The [facility] CenterComment on above:Performed By: #### 67005 #### [facility] [address] [place] [address], USAWBC (Bld) [#/Vol]13.03 10*3/uLHigh4.00-10.60The [facility] CenterComment on above:Performed By: #### 43494 #### [facility] [address] [place] [address], USACT BRAIN WO CONTRASTon 70-28-3019DM BRAIN WO CONTRAST [facility] Department of Radiology [address] [place] [id number] Patient Name: MONICA ACOSTA : 1960 Sex: F Age: Race: White Pt. Location: [facility] Patient Status: E Ordered Date: 06/30/2020 6:35:00 [...] the head were obtained without IV contrast. TECHNIQUE:Multi-detector CT axial slices of the brain were [...] achievable Electronically signed: Enio Miles. Transcribed by: [email or web address], User Resident: Electronically Signed by: ENIO MILES @ 06/30/2020 07:52 AMNormalThe [facility] Medical CenterComment on above:Order Comment: BleedCT CERVICAL SPINE WITHOUT CONTRASTon 36-40-4056NE CERVICAL SPINE WITHOUT CONTRAST [facility] Department of Radiology [address] [place] [id number] Patient Name: MONICA ACOSTA : 1960 Sex: F Age: Race: White Pt. Location: [facility] Patient Status: E Ordered Date: 06/30/2020 6:35:00 [...] malalignment. Electronically signed: Enio Miles. Transcribed by: [email or web address], User Resident: Electronically Signed by: ENIO MILES @ 06/30/2020 07:54 AMNormalThe [facility] CenterComment on above:Order Comment: No: Do not add to previous drawCT LUMBAR SPINE WO CONTRASTon 28-27-6938IY LUMBAR SPINE WO CONTRASTUnDoctors Hospital Department of Radiology [address] [place] [id number] Patient Name: MONICA ACOSTA : 1960 Sex: F Age: Race: White Pt. Location: [facility] Patient Status: E Ordered Date: 06/30/2020 7:00:00 [...] injury. Electronically signed: Enio Miles. Transcribed by: [email or web address], User Resident: Electronically Signed by: ENIO MILES @ 06/30/2020 07:59 AMNormalThe [facility] CenterComment on above:Order Comment: No: Do not add to previous drawCTA CHESTon 37-33-9266MZC CHESTFisher-Titus Medical Center Department of Radiology [address] [place] [id number] Patient Name: MONICA ACOSTA : 1960 Sex: F Age: Race: White Pt. Location: [id number] Patient Status: I Ordered Date: 06/30/2020 3:25:00 [...] atelectasis. Electronically signed: Richard Clarke. Transcribed by: [email or web address], User Resident: Electronically Signed by: RICHARD CLARKE @ 06/30/2020 08:13 PMNormalThe [facility]itus Medical CenterComment on above:Order Comment: No: Do not add to previous drawD DIMER TESTon [id number]-DIMER TEST1.78 mcg/mL FEUHigh 0.27-0.49The [facility] CenterComment on above:Order Comment: No: Do not add to previous drawResult Comment: D-Dimer values of less than 0.50 ug/ml (FEU) are considered to be a negative predictor of thrombosis. However, the D-Dimer result should be used in conjunction with pretest probability and should not be used alone to diagnose a thrombotic event.Performed By: #### [id number], [id number] #### [facility] [address] [place] [address], USAHEMOGLOBIN A1Con 18-39-4635AmL9t (Bld) [Mass fraction]200 mmol/LNormalThe [facility]itus Medical CenterComment on above:Order Comment: No: Do not add to previous drawPerformed By: #### 39198, [id number] #### [facility] [address] [address], CQRWlZ3a (Bld) [Mass fraction]8.6 %High4.0-6.0The [facility] Medical CenterComment on above:Order Comment: No: Do not add to previous drawPerformed By: #### 52079, 44411 #### [facility] [address] [place] [address], USALACTATE BLOODon 08-17-0416Bbqsckw [Moles/Vol]1.5 mmol/L Normal0.5-2.2The [facility] CenterComment on above:Order Comment: No: Do not add to previous drawPerformed By: #### 31900, 69593 #### [facility] [address] [facility] [place] [address], USAMAGNESIUM BLOODon 10-68-0279Zasjpojcl [Mass/Vol]1.9 mg/dL Normal1.9-2.7The [facility] Medical CenterComment on above:Order Comment: No: Do not add to previous drawPerformed By: #### 48784, 89514 #### [facility] [address] [place] [address], USAMRI LUMBAR SPINE W WO CONTRASTon 20-35-4568LOE LUMBAR SPINE W WO CONTRASTUnDoctors Hospital Department of Radiology [address] [place] [address] Patient Name: MONICA ACOSTA : 1960 Sex: F Age: Race: White Pt. Location: [facility] Patient Status: I Ordered Date: 06/30/2020 7:50:00 [...] changes. Electronically signed: Dom Carbajal. Transcribed by: [email or web address], User Resident: Electronically Signed by: DOM CARBAJAL @ 06/30/2020 11:09 AMNormalThe [facility]-Titus Medical CenterComment on above:Order Comment: No: Do not add to previous drawPOC GLUCOSE EDon 63-27-7574Llflmpv [Mass/Vol]388 mg/dLHigh 70-100The [facility] CenterComment on above:Performed By: #### 28062 #### [facility] [address] [place] [address], USAPOC GLUCOSE LABon 82-03-6816Tjphafw [Mass/Vol]430 mg/dLHigh 70-100The [facility] Medical CenterComment on above:Performed By: #### 34552 ####[facility] [place] [address], USAGlucose [Mass/Vol]308 mg/eMCjsi52-055Dhv [facility] Medical CenterComment on above:Performed By: #### [id number] #### [facility] [address] [facility] [address], USAGlucose [Mass/Vol]348 mg/qQXbyu21-627Tzv [facility] Medical CenterComment on above:Performed By: #### 61364 #### [facility] [address] [place] [address], USAPROCALCITONINon 64-85-2867ABOVVONZVUZOM9.11 ng/mLHigh 0.00-0.10The [facility] Medical CenterComment on above:Order Comment: No: Do not add to previous drawResult Comment: Suspected Lower Respiratory Tract Infection: 0.1-0.25ng/mL- Low likelihood for bacterial infection;Antibiotics discouraged.* >0.25ng/mL- Increased likelihood bacterial infection;Antibiotics encouraged. Suspected Sepsis: Strongly consider initiating antibiotics in all unstable patients. 0.1-0.5ng/mL- Low likelihood for sepsis; Antibiotics discouraged.* >0.5ng/mL- Increased likelihood sepsis; Antibiotics encouraged. >2.0ng/mL- High risk of sepsis/septic shock; Antibiotics strongly encouraged. *Recommend retesting PCT within 6-12hours if clinically indicated and initial PCT<0.5ng/mLPerformed By: #### 45807, 39210 #### [facility] [address] [place] [address], USAPROTHROMBIN TIMEon 18-66-8013JJZ Coag (PPP) [Relative time] 0.89 {INR}Low0.91-1.16The [facility] Medical CenterComment on above: Result Comment: ACCCP RECOMMENDED INR FOR WARFARIN THERAPY ------- CONDITION INR PROPHYLAXIS OF VENOUS THROMBOSIS 2-3 (HIGH-RISK SURGERY) TREATMENT OF VENOUS THROMBOSIS 2-3 TREATMENT OF PULMONARY EMBOLISM 2-3 PREVENTION OF SYSTEMIC EMBOLISM: 2-3 ACUTE MYOCARDIAL INFARCTION TISSUE HEART VALVES VALVULAR HEART DISEASE ATRIAL FIBRILLATION RECURRENT SYSTEMIC EMBOLISM MECHANICAL HEART VALVE 2.5-3.5 FROM: ORAL ANTICOAGULANTS. MECHANISM OF ACTION, CLINICAL EFFECTIVENESS, AND OPTIMAL THERAPEUTIC RANGE. CHEST 1995;108:231S-246S.Performed By: #### [id number] #### [facility] [address] [place] [address], USAPT Coag (PPP) [Time]12.0 sLow12.3-14.8The [facility] Medical CenterComment on above:Result Comment: ALL RESULTS MUST BE INTERPRETED WITH RESPECT TO BLOOD DRAWING ARTIFACT OR DILUTION ERROR OF ANTICOAGULANT AT THE TIME OF SAMPLING.Performed By: #### 05859 #### [facility] [address] [place] [address], USATPO ANTIBODY 73671qm 22-62-0659JIY ANTIBODY0.8 IU/mLNormal 0.0-9.0The [facility] Medical CenterComment on above:Result Comment: Performed By: [employer] [address] [place] [address] Editor Managing Director: Emilia Arrieta MDTRVIVIANNIN-Ion 77-09-3805Szlgzbzy I.cardiac [Mass/Vol]0.01 ng/mLNormal0.00-0.04The [facility] Medical CenterComment on above:Order Comment: No: Do not add to previous drawResult Comment: REFERENCE RANGES: 0.00 - 0.04 ng/ml NORMAL 0.05 - 0.50 ng/ml INDETERMINATE > 0.50 ng/ml CONSISTENT WITH AN M.I.Performed By: #### 20367, 02573 #### [address] [place] [address], [facility] CENTERPerformed By: #### 04489 #### [facility] [address] [place] [address], USATYPE AND SCREENon 15-66-9172IPK INTERPRETATIONANoMarymount HospitalComment on above:Performed By: #### 24203 #### [facility] [address] [place] [address], [place] INTERPRETATIONPositiveDoctors HospitalComment on above:Performed By: #### 81999 #### [address] [place] [address], [facility]AT[facility] CENTERLUMBAR SPINE 2 OR 3 [facility] 36-07-6778ZGLZGK SPINE 2 OR 3 [facility] Department of Radiology [address] [place] [id number] Patient Name: MONICA ACOSTA : 1960 [...] reports Electronically signed: Jamie Elizondo. Transcribed by: [email or web address], User Resident: BOGDAN SOTELO Electronically Signed by: JAMIE ELIZONDO @ 06/26/2020 11:06 AM I personally read this/these film(s) with this [facility] HospitalComment on above:Order Comment: No: Do not add to previous draw Vital Signs Date TimeVital SignValuePerforming IckqiachhBsohazru71-16-2144 09:28-0400Body alixgk638.18 cmRudolph Hurt MD Work Phone: [facility]10-20-2025 09:28-0400 Body mass index (BMI) [Ratio]28.6 kg/m2Rudolph Hurt MD Work Phone: 1(419)547-[address] [place], [place] [address]10-20-2025 09:28-0400 Body ojrliv47 kgRudolhp Hurt MD Work Phone: [phone])[address]07-10-2025 13:27-0400 Body .2 cmRudolph Hurt MD Work Phone: 1(413)95832[address] [place], [place] [address]Asimcdivvv21-75-8298 13:27-0400Body mass index (BMI) [Ratio]28.66 kg/m2Rudolph Hurt MD Work Phone: 1(995)47385[address] [place], [place] [address]Dnhjibxntg41-73-2363 13:27-0400Body temperature 97.11 [degF]Rudolph Hurt MD Work Phone: 1(937)504-[address] [place], [place] [address]Whecydbfmh72-15-7389 13:27-0400Body egcfft80.01 kgRudolph Hurt MD Work Phone: 1(959)20063353 [address] [place], [place] [address]Vtenhazriq43-50-5440 13:27-0400Diastolic blood oxylwfwz14 mm[Hg]Rudolph Hurt MD Work Phone: 1(951)620-[address] [place], [place] [address]Yqehfbdnku03-44-9567 13:27-0400Heart rate89 /min Rudolph Hurt MD Work Phone: [facility] HospitalZbduurvmeh67-27-4801 13:27-0400Respiratory rate20 /minRudolph Hurt MD Work Phone: [facility] HospitalCsgmqrysrj60-38-1445 13:27-7462VqW9% (BldA) [Mass fraction]95 %Rudolph Hurt MD Work Phone: [facility] HospitalMdpjnvfufm75-02-6746 13:27-0400Systolic blood mm[Hg]Rudolph Hurt MD Work Phone: 1([phone])15901453 [address] [place], [place] [address]Ihyaogzvzp18-17-5117 12:59-0400Body .18 cmRudolph Hurt MD Work Phone: [phone])[address]07-07-2025 12:59-0400 Body mass index (BMI) [Ratio]28.5 kg/m2Rudolph Hurt MD Work Phone: 1(044)881-[address] [place], [place] [address]07-07-2025 12:59-0400 Body lysrbstfdup72.6 [degF]Rudolph Hurt MD Work Phone: 1(070)[address]07-07-2025 12:59-0400 Body bidvoc90.78 kgRudolph Hurt MD Work Phone: 1(406)[address] [place], [place] 0287807-07-2025 12:59-0400 Diastolic blood zggaqmlg08 mm[Hg]Rudolph Hurt MD Work Phone: 1(660)[address]07-07-2025 12:59-0400 Heart rate83 /minRudolph Hurt MD Work Phone: 1(507)[address] [place], [place] 0287807-07-2025 12:59-0400 Respiratory rate18 /minRudolph Hurt MD Work Phone: 1(751)[address] [place], [place] 0287807-07-2025 12:59-0400 SaO2% (BldA) [Mass fraction]97 %Rudolph Hurt MD Work Phone: 1(274)[address]07-07-2025 12:59-0400 Systolic blood mm[Hg]Rudolph Hurt MD Work Phone: 1(304)[address] [place], [place] 0287805-13-2025 12:06-0400 Body mijzck388.2 cmRudolph Hurt MD Work Phone: 1(209)[address]05-13-2025 12:06-0400Body mass index (BMI) [Ratio]29.29 kg/m2Rudolph Hurt MD Work Phone: 1(247)[address]05-13-2025 12:06-0400Body temperature 96.21 [degF]Rudolph Hurt MD Work Phone: 1(301)[address]05-13-2025 12:06-0400Body mulazc47.82 kgRudolph Hurt MD Work Phone: 1(683)[address]05-13-2025 12:06-0400Diastolic blood ufyriudl78 mm[Hg]Rudolph Hurt MD Work Phone: [facility] HospitalSskmihuhqo78-04-9035 12:06-0400Heart rate88 /min Rudolph Hurt MD Work Phone: [facility] HospitalDqtuwlundm35-26-6164 12:06-0400Respiratory rate20 /minRudolph Hurt MD Work Phone: [facility] HospitalJigtrcqxna51-67-1721 12:06-1183MuI1% (BldA) [Mass fraction]97 %Rudolph Hurt MD Work Phone: [facility] HospitalVawlqojlaw96-34-1292 12:06-0400Systolic blood zqouutpk313 mm[Hg]Rudolph Hurt MD Work Phone: [facility] HospitalWpglczjfpc12-45-9503 13:52-0400Body .2 Abhay Tate MD Work Phone: [phone])[address]04-28-2025 13:52-0400Body mass index (BMI) [Ratio]29.91 kg/o9EeiweZeyad Tate MD Work Phone: 1(689)583-[address] [place], [place] [address]Zhpvsoxokj56-19-4863 13:52-0400Body txiwcw58.64 kgZeyad Tate MD Work Phone: 1(332)018-[address] [place], [place] [address]Kzpwkaazjg52-68-2954 13:52-0400Diastolic blood vtuknllc32 mm[Hg]Zeyad Tate MD Work Phone: 1(947)532-[address] [place], [place] [address]Zzahfblnaw13-59-4752 13:52-0400Heart rate82 /min Zeyad Tate MD Work Phone: 1(278)997-[address] [place], [place] [address]Yyhtzxwhmy68-75-0471 13:52-0400Respiratory rate18 /minZeyad Tate MD Work Phone: [address] [place], [place] [address]Kssynjkhqo89-19-0092 13:52-4184PfY6% (BldA) [Mass fraction]97 %Zeyad Tate MD Work Phone: [address] [place], [place] [address]Nsnrajofww46-51-8309 13:52-0400Systolic blood yvoyzuvh332 mm[Hg]Zeyad Tate MD Work Phone: noBoone Hospital CenterOfarydhexz17-84-2498 14:18-0400Body qukfom081.2 cmRudolph Hurt MD Work Phone: noBoone Hospital CenterApflzkyejt76-15-8406 14:18-0400Body mass index (BMI) [Ratio]29.29 kg/m2Rudolph Hurt MD Work Phone: [facility] HospitalRxmgbloyid81-29-1916 14:18-0400Body temperature 97.11 [degF]Rudolph Hurt MD Work Phone: [facility] HospitalPaonuyatme72-61-2442 14:18-0400Body .82 kgRudolph Hurt MD Work Phone: [facility] HospitalWbvmzmrnqq24-82-8282 14:18-0400Diastolic blood utwvmxdu26 mm[Hg]Rudolph Hurt MD Work Phone: [facility] HospitalSldvugdvrs12-55-9402 14:18-0400Heart rate87 /min Rudolph Hurt MD Work Phone: [facility] HospitalBusvydnhxp71-86-0544 14:18-0400Respiratory rate22 /minRudolph Hurt MD Work Phone: [facility] HospitalZxvtzvwipn88-01-2431 14:18-5511OaY2% (BldA) [Mass fraction]95 %Rudolph Hurt MD Work Phone: [facility] HospitalNghnracoxf26-73-1646 14:18-0400Systolic blood tfzywckd963 mm[Hg]Rudolph Hurt MD Work Phone: [facility] HospitalSwyjklsoau22-64-0122 13:38-0400Body mtgmol896.2 cmCollin Saba MD Work Phone: [facility]03-17-2025 13:38-0400Body mass index (BMI) [Ratio]29.12 kg/e5OetigtCollin Saba MD Work Phone: [facility]03-17-2025 13:38-0400Body ssriin84.37 kgCollin Saba MD Work Phone: [facility]03-17-2025 13:38-0400Diastolic blood wuirppvv17 mm[Hg]Collin Saba MD Work Phone: [facility]03-17-2025 13:38-0400 Respiratory rate18 /minCollin Saba MD Work Phone: 1(680)052-[address] [place], [place] [address]003-17-2025 13:38-0400Systolic blood wdojwzxi168 mm[Hg]Collin Saba MD Work Phone: [facility]01-15-2025 11:19-0500Body oxitvv456.2 cmRudolph Hurt MD Work Phone: 1(931)949-[address] [place], [place] [address]Zdetwgozcq12-02-9052 11:19-0500Body mass index (BMI) [Ratio]29.76 kg/m2Rudolph Hurt MD Work Phone: [facility] HospitalIapywygqow67-31-2164 11:19-0500Body temperature 96.21 [degF]Rudolph Hurt MD Work Phone: [phone] HospitalZljxvkgqxf90-15-8852 11:19-0500Body wrkxaz56.18 kgRudolph Hurt MD Work Phone: [facility] HospitalLeeuhbmmuj19-19-8736 11:19-0500Diastolic blood pqjuajnl12 mm[Hg]Rudolph Hurt MD Work Phone: [facility] HospitalQftrsqfiso78-54-9163 11:19-0500Heart maoy047 /min Rudolph Hurt MD Work Phone: [facility] HospitalHaftdjmydv56-95-2943 11:19-0500Respiratory rate22 /minRudolph Hurt MD Work Phone: [facility] HospitalNfclxqdzsq26-03-2327 11:19-0280YjH7% (BldA) [Mass fraction]91 %Rudolph Hurt MD Work Phone: [facility] HospitalLjaohtunaa73-82-6405 11:19-0500Systolic blood mm[Hg]Rudolph Hurt MD Work Phone: [facility] HospitalYxygoiviit79-19-1028 13:37-0500Body wiejcb396.2 cmAkalpana Tate MD Work Phone: [facility] HospitalLueuywungv24-51-5647 13:37-0500Body mass index (BMI) [Ratio]30.7 kg/n9UsrcuZeyad aTte MD Work Phone: [facility] HospitalGluasieolp88-36-3437 13:37-0500Body coygyh99.91 kgZeyad Tate MD Work Phone: [facility] HospitalPwlzvjmzur62-19-4378 13:37-0500Diastolic blood mm[Hg]Zeyad Tate MD Work Phone: [facility] HospitalGhzjnbwhbv30-02-2865 13:37-0500Heart rate83 /min Zeyad Tate MD Work Phone: [facility] HospitalZasygchrnc09-04-9750 13:37-0500Respiratory rate18 /minZeyad Tate MD Work Phone: [facility] HospitalVajvszhyeo04-10-6384 13:37-0500Systolic blood adeysgly038 mm[Hg]Zeyad Tate MD Work Phone: [facility] HospitalGactqvfcvw30-40-8736 11:43-0400Body pulbpb381.2 cmDennis Furlong DO Work Phone: [facility]08-09-2024 11:43-0400Body mass index (BMI) [Ratio]28.66 kg/o0Mizatf Furlong DO Work Phone: [facility]08-09-2024 11:43-0400Body yeinpfmdjno24.01 [degF]Zen Furlong DO Work Phone: [facility]08-09-2024 11:43-0400Body eopirt94.01 kgDennis Furlong DO Work Phone: [facility] [employer] Iukrmu72-58-2519 11:43-0400Diastolic blood zjacuehw21 mm[Hg]Zen Culpng DO Work Phone: [facility] [employer] Vdbiel32-26-2114 11:43-0400Heart rate 88 /Julio Cesaris Chantallong DO Work Phone: [facility] [employer] Awldkz85-93-5081 11:43-0225ZzI1% (BldA) [Mass fraction]97 %Zen Cornejolong DO Work Phone: [facility] [employer] Dzwwrs40-77-1035 11:43-0400Systolic blood bbdmdimc279 mm[Hg]Zen Culpng DO Work Phone: [facility] [employer] Dahgae47-17-0044 13:20-0400Body jqotvj155.2 cmZen Culpng DO Work Phone: [facility] [employer] Fuzosc52-09-4000 13:20-0400Body mass index (BMI) [Ratio]28.72 kg/k3Kqaeusemanuel Culpng DO Work Phone: [facility] [employer] Upgpiw02-78-1692 13:20-0400Body tjyabcoicvb72.9 [degF]Zen Viera DO Work Phone: [facility] [employer] Ohpuup32-00-9748 13:20-0400Body .19 kgDenemanuel Culpng DO Work Phone: [facility] [employer] Druhxc76-79-2136 13:20-0400Diastolic blood ykwlsper09 mm[Hg]Zen Culpng DO Work Phone: [facility] [employer] Otifdh38-90-4927 13:20-0400Heart rate 81 /Karime Culpng DO Work Phone: [facility]07-22-2024 13:20-9178NeS8% (BldA) [Mass fraction]97 %Zen Culpng DO Work Phone: [facility] [employer] Fuygcy98-67-8757 13:20-0400Systolic blood mm[Hg]Zen Cornejolong DO Work Phone: [facility] [employer] Mssbvd63-26-2926 16:28-0400Body druhsz458.2 cmDennis Chantallong DO Work Phone: [facility] [employer] Wvferb37-05-7362 16:28-0400Body mass index (BMI) [Ratio]28.33 kg/w4Dafveh Furlong DO Work Phone: [facility] [employer] Iofnir98-58-2557 16:28-0400Body hyikqkhxipx01.2 [degF]Zen Cornejolong DO Work Phone: [facility] [employer] Lzwtek71-52-4073 16:28-0400Body yzzmpj71.06 kgDenemanuel Cornejolong DO Work Phone: [facility] [employer] Kxgszx23-07-0289 16:28-0400Diastolic blood zawdbpkv42 mm[Hg]Zen Cornejolong DO Work Phone: [facility] [employer] Kbirhf31-21-6316 16:28-0400Heart rate 84 /Karime Cornejolong DO Work Phone: [facility] [employer] Vogkrf96-29-3441 16:28-0400 Respiratory rate18 /Julio Cesaris Chantallong DO Work Phone: [facility] [employer] Regcod06-92-0192 16:28-4403YpH7% (BldA) [Mass fraction]95 %Zen Cornejolong DO Work Phone: [facility] [employer] Bfarqx55-56-3483 16:28-0400Systolic blood juucklvy059 mm[Hg]Zen Cornejolong DO Work Phone: [facility] [employer] Cmsrzn16-77-5903 12:52-0400Body hhgioc718.2 cmDemetra Porter APRN-PLASTER WHITTLER Work Phone: [facility] [employer] Nwhxfh35-30-1382 12:52-0400Body mass index (BMI) [Ratio]28.16 kg/m2Demetra DUMONTPLASTER WHITTLER Work Phone: [facility]04-01-2024 12:52-0400Body wapvcclaavl78.59 [degF]Demetra DUMONTPLASTER WHITTLER Work Phone: [facility]04-01-2024 12:52-0400Body xxnzoz89.56 kgDemetra Porter APRNDeangeloPLASTER WHITTLER Work Phone: [facility]04-01-2024 12:52-0400Diastolic blood mm[Hg]Demetra DUMONTPLASTER WHITTLER Work Phone: [facility]04-01-2024 12:52-0400Heart rate 84 /minDemetra Porter APRNDeangeloPLASTER WHITTLER Work Phone: [facility]04-01-2024 12:52-0400 Respiratory rate18 /minDemetra Porter APRNDeangeloPLASTER WHITTLER Work Phone: [facility]04-01-2024 12:52-9393UjS3% (BldA) [Mass fraction]98 %Demetar DUMONTPLASTER WHITTLER Work Phone: [facility]04-01-2024 12:52-0400Systolic blood mm[Hg]Demetra DUMONTPLASTER WHITTLER Work Phone: [facility]11-22-2021 12:15-0500Body ahcikt149.18 Sully Molexy Other [employer] Other 11-22-2021 12:15-0500Body mass index (BMI) [Ratio] 27.88 kg/z9Mqoac Karishmanty Other [employer] Other 11-22-2021 12:15-0500Body rmnpxejhbvp73 [degF]Veronica Mcneill Other [facility] [employer] Other 11-22-2021 12:15-0500Body dnxjus14.74 kgVeronica Mcneill Other [facility] [employer] Other 11-22-2021 12:15-6896UlI3% (BldA) [Mass fraction]96 % Veronica Mcneill Other [facility] [employer] Other Encounters Encounter DateEncounter TypeCare ProviderFacilityStart: 06-24-2025 End: 66-85-4950dxdixhfbqhHxab Naderer MD Work Phone: [facility]vueStart: 06-24-2025 End: 89-23-5258Bexdiov encounter procedureJustkeyona Garcia DO-[facility] [place] Work Phone: Start: 05-08-2025 End: 29-09-2534bzosasooypMCYCRK [facility] Hospitaltart: 03-14-2025 End: 09-65-8127Agawtj Rishi Hurt MD Work Phone: [facility] FMStart: 03-14-2025 End: 25-12-9602Rzstcm Rishi Hurt MD Work Phone: [facility] FMStart: 03-14-2025 End: 91-55-1334Vibfbm outpatient visit 25 minutesRudolph Hurt MD Work Phone: [facility] FMComment on above:MDD (major depressive disorder), recurrent episode, moderate (HCC) (Primary Dx); Type I diabetes mellitus with polyneuropathy (HCC); Rheumatoid arthritis involving multiple sites with positive rheumatoid factor (HCC); Type 1 diabetes mellitus with hyperglycemia (HCC); POTS (postural orthostatic tachycardia syndrome); Coronary artery disease involving timbi-sha shoshone coronary artery of timbi-sha shoshone heart without angina pectorisStart: 03-14-2025 End: 32-70-1248dcvzzxrkjgUPQR NADERERNot AvailableStart: 03-11-2025 End: 08-65-3134hwdojzshozOveh Naderer MD Work Phone: [facility] Work Phone: Start: 03-11-2025 End: 78-53-3412Wlsctzw encounter procedureSilvia IsabelDeangeloCiarra [facility] Work Phone: Start: 02-25-2025 End: 14-57-4254MtlrjpQxir Naderer MD Work Phone: noms [facility] FMComment on above:Coronary artery disease involving timbi-sha shoshone coronary artery of timbi-sha shoshone heart without angina pectoris (Pr imary Dx); Rheumatoid arthritis involving multiple sites with positive rheumatoid factor (HCC)Start: 01-26-2025 End: 11-76-1041RefluiGxsn Naderer MD Work Phone: noms [facility] FMComment on above:POTS (postural orthostatic tachycardia syndrome) (Primary Dx); Rheumatoid arthritis involving multiple sites with positive rheumatoid factor (CMS/HCC)Start: 01-24-2025 End: 58-49-6849Oycvos Ilene Chairez PT Work Phone: noms [facility] PTHStart: 01-24-2025 End: 28-29-4587Zjjmtt Ilene Chairez PT Work Phone: noms [facility] PTHStart: 01-24-2025 End: 29-30-9246ugfrxesohfHJXVS M DONALDSONNot AvailableStart: 01-15-2025 End: 46-13-6520Zcpyzu outpatient visit 25 minutesRudolph Hurt MD Work Phone: noMS CWM FMComment on above:Chest pain at rest (Primary Dx); SOB (shortness of breath) on exertion; Coronary artery disease involving timbi-sha shoshone coronary artery of timbi-sha shoshone heart without angina pectoris (CMS/HCC); HypersomniaStart: 01-15-2025 End: 01-94-1878exlvsgbcyoXRDO NADERERNot AvailableStart: 12-31-2024 End: 64-18-7016Lympka outpatient visit 40 minutesZeyad Tate MD Work Phone: noms ENDOCRINOLOGYComment on above:Type 1 diabetes mellitus with hyperglycemia (HCC) (CMS/HCC) (Primary Dx); Essential (primary) hypertension (CMS/HCC); Vitamin D deficiency, unspecified; Dietary counseling and surveillance; Mixed hyperlipidemia (CMS/HCC); Presence of insulin pump (external) (internal); 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 (CMS/HCC); Encounter for fitting or adjustment of insulin pumpStart: 12-31-2024 End: 28-38-3539Kzgqatsofia Tate MD Work Phone: noms ENDOCRINOLOGYStart: 12-31-2024 End: 96-89-0891Oeujlfsofia Tate MD Work Phone: noms ENDOCRINOLOGYStart: 12-31-2024 End: 47-29-7942nodwcdqjwuVTAAF F SABBAGHNot AvailableStart: 12-27-2024 End: 95-59-3398HquegwLqta Naderer MD Work Phone: noms CWM FMComment on above:Rheumatoid arthritis involving multiple sites with positive rheumatoid factor (CMS/HCC)Start: 12-10-2024 End: 41-50-4704Lvnsvq outpatient visit 25 minutesRudolph Hurt MD Work Phone: noms C[facility] FMComment on above:Type I diabetes mellitus with polyneuropathy (CMS/HCC) (Primary Dx); Type 1 diabetes mellitus with hyperglycemia (HCC) (CMS/HCC); POTS (postural orthostatic tachycardia syndrome); Rheumatoid arthritis involving multiple sites with positive rheumatoid factor (CMS/HCC); Coronary artery disease involving [place] coronary artery of [place] heart without angina pectoris (CMS/HCC); HypersomniaStart: 12-10-2024 End: 74-30-1417Iabiowsofai Hurt MD Work Phone: [facility] FMStart: 12-10-2024 End: 39-38-1976Tommzysofia Hurt MD Work Phone: noMS [facility] FMStart: 12-10-2024 End: 48-28-9165aosirfuuweMVHL NADERERNot AvailableStart: 12-06-2024 End: 19-17-8041Gwazeeuer Result EncounterGeneric External Data ProviderNOMS External Department UnsolicitedStart: 12-06-2024 End: 48-33-6060Ouoadxcbj Result EncounterGeneric External Data ProviderNOMS External Department UnsolicitedStart: 12-06-2024 End: 78-54-6193scrmpliwopRiywbs Furlong DO Work Phone: [facility] Work Phone: Start: 12-06-2024 End: 54-58-8625Hzajcqgi ReferredDennis Furlong DO Work Phone: [facility]Start: 12-05[facility]2024 End: 57-66-5265Vadmfcyxr Result EncounterGeneric External Data ProviderNOMS External Department UnsolicitedStart: 12-05-2024 End: 71-52-4396Hmwvkttuv Result EncounterGeneric External Data ProviderNOMS External Department UnsolicitedStart: 12-03-2024 End: 64-83-6357Pljllcfjx Result EncounterGeneric External Data ProviderNOMS External Department UnsolicitedStart: 12-03-2024 End: 49-58-9925Ypiefcjnw Result EncounterGeneric External Data ProviderNOMS External Department UnsolicitedStart: 12-03-2024 End: 79-11-5029BmcuwmIoeaRodrigo Hurt MD Work Phone: noms CWM FMComment on above:Rheumatoid arthritis involving multiple sites with positive rheumatoid factor ([facility])Start: 11-30-2024 End: 43-49-3273Fjshmsnts Result EncounterGeneric External Data ProviderNOMS External Department UnsolicitedStart: 11-30-2024 End: 82-74-2353Ndiipxlqo Result EncounterGeneric External Data ProviderNOMS External Department UnsolicitedStart: 11-30-2024 End: 74-44-1356wxgusbnximEDSMUPNorwalk Memorial Hospital Start: 11-30-2024 End: 30-42-1652Fmfvjmmsm for preprocedural cardiovascular examinationGEORGE [facility] Hospitaltart: 11-19-2024 End: 72-08-4646kobbivfoqmNFHNFG St[facility] Hospitaltart: 11-19-2024 End: 46-44-6793Rujdle consultation new/estab patient 80 Alice Saba MD Work Phone: [facility], A Department of ProMedicMercy Health Willard HospitalComment on above:Rheumatoid arthritis involving multiple sites, unspecified whether rheumatoid factor present ([facility]) (Primary Dx); Long-term use of Plaquenil; Long-term use of leflunomide therapyStart: 11-19-2024 End: 55-16-3365tjzngrumvnLLNKQG St[facility] Hospitaltart: 11-12-2024 End: 84-58-0073YmclhaTtna Naderer MD Work Phone: noms CWM FMComment on above:Rheumatoid arthritis involving multiple sites with positive rheumatoid factor ([facility]/HCC)Start: 10-19-2024 End: 87-88-9248IfqmkwIndy Naderer MD Work Phone: noms CWM FMComment on above:Rheumatoid arthritis involving multiple sites with positive rheumatoid factor ([facility]/HCC)Start: 10-15-2024 End: 01-28-1982ysxpcjxluaPKAEDY SHENDGEUniAdena Regional Medical Centertart: 09-19-2024 End: 79-69-0778Dxdbbv Rishi Hurt MD Work Phone: NOYL CWM FMStart: 09-19-2024 End: 48-50-8128Zcfhbssofia Hurt MD Work Phone: NOJC CWM FMStart: 09-19-2024 End: 50-61-6716Gmtmda outpatient new 45 Bong Hurt MD Work Phone: [facility] FMComment on above:Rheumatoid arthritis involving multiple sites with positive rheumatoid factor (CMS/HCC) (Primary Dx); Type I diabetes mellitus with polyneuropathy (CMS/HCC); Coronary artery disease involving timbi-sha shoshone coronary artery of timbi-sha shoshone heart without angina pectoris (CMS/HCC); PAD (peripheral artery disease) (CMS/HCC); POTS (postural orthostatic tachycardia syndrome); Type 1 diabetes mellitus with other circulatory complications (CMS/HCC); Type 1 diabetes mellitus with hyperglycemia (HCC) (CMS/HCC); Encounter for long-term (current) use of medications; Dyslipidemia (CMS/HCC); half-way (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 (CMS/HCC)Start: 09-19-2024 End: 87-10-5016huajiwevuhOHVV NADERERNot AvailableStart: 08-21-2024 End: 40-81-3112Jaejczsofia Tate MD Work Phone: noms ENDOCRINOLOGYStart: 08-21-2024 End: 52-60-6375Jtvgeesofia Tate MD Work Phone: noms ENDOCRINOLOGYStart: 08-21-2024 End: 14-50-0355Ybmpon outpatient new 60 Kait Tate MD Work Phone: noms ENDOCRINOLOGYComment on above:Type 1 diabetes mellitus with hyperglycemia (HCC) (CMS/HCC) (Primary Dx); Essential (primary) hypertension (CMS/HCC); Vitamin D deficiency, unspecified; Dietary counseling and surveillance; Mixed hyperlipidemia (CMS/HCC); Presence of insulin pump (external) (internal); half-way (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 (CMS/HCC); Encounter for fitting or adjustment of insulin pumpStart: 08-21-2024 End: 58-46-6400yeceueyfptNZTYQMarko Luo AvailableStart: 08-13-2024 End: 12-29-5872lqsjvshvemNAJZNJ [facility]ina Hospitaltart: 07-09-2024 End: 61-53-6485cncxefytdeLVQJNWBethesda North Hospitaltart: 06-11-2024 End: 16-64-7217kpkzzwyzmhYJYWDI SHENEUniversGrant Hospitaltart: 05-14-2024 End: 02-03-2857djicqpmjzkQKBCNXLake County Memorial Hospital - Westtart: 04-30-2024 End: 06-85-4310Bhalghtsw encounterNicjame Jerry [facility]ITALProMedica Physicians Internal Medicine - Family MedicineStart: 04-16-2024 End: 67-06-8532Hvyuia OnlyZen Viera DO Work Phone: [facility] - [facility] Braseltontart: 04-13-2024 End: 86-01-0088aykweiplgdPZVBKT G FURLONGTogus VA Medical Centertart: 04-13-2024 End: 59-05-5532Qafxcp outpatient visit 25 minutesDenemanuel Cornejolong DO Work Phone: [facility] - Family MedicineComment on above:Stage 2 chronic kidney disease due to type 1 diabetes mellitus ([facility]) (Primary Dx); Rheumatoid arthritis involving multiple sites, unspecified whether rheumatoid factor present ([facility]); 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 ([facility]); Diabetic polyneuropathy associated with type 1 diabetes mellitus ([facility]); Hyperkalemia; Compression fracture of L1 vertebra, sequelaStart: 04-13-2024 End: 99-24-0250ugsedcrbheIVELPR G FURTHAONewark Hospital Ambulatory PPGStart: 04-03-2024 End: 75-27-4292Fuoolg OnlyZen Culpng DO Work Phone: [facility] - Family MedicineComment on above:Medication monitoring encounter (Primary Dx); Compression fracture of L1 vertebra, sequela; Rheumatoid arthritis involving multiple sites, unspecified whether rheumatoid factor present ([facility]-HCC)Start: 04-03-2024 End: 97-01-8877ZpchogTddldq L Rauch [employer] [facility]-RECREATIONAL VEHICLE RESORT MANAGER Work Phone: [facility] - Family MedicineStart: 03-30-2024 End: 83-20-2201Gbauwxcjr encounterAna Edwards CAMERONProMedisterling Physicians Internal Medicine - [facility] MedicineStart: 03-29-2024 End: 43-25-5095Mfiwprhrq encounterDenemanuel Viera DO Work Phone: [facility] Phys[facility] Internal Medicine [facility] Hospitaltart: 03-27-2024 End: 81-04-1905yeupsmcfqoZXSDXOBarney Children's Medical Centertart: 03-27-2024 End: 63-95-2418miprkjrcudREFLLBMadonna Rehabilitation Hospital SystemComment on above:Rheumatoid arthritis involving multiple sites, unspecified whether rheumatoid factor present ([facility])Start: 03-26-2024 End: 42-55-0760llhusjyrivSVANUG G FURBluffton Hospitaltart: 03-26-2024 End: 91-18-9760Nybige outpatient visit 25 minutesDenemanuel Culpng DO Work Phone: [facility] Internal [facility] - [facility] MedicineComment on above:Compression fracture of L1 vertebra, sequela (Primary Dx); Rheumatoid arthritis involving multiple sites, unspecified whether rheumatoid factor present ([facility]); Other fatigue; Medication monitoring encounter; Primary hypertension; Type 1 diabetes mellitus with diabetic polyneuropathy ([facility]); OverweightStart: 38-41-2335uclfdcyuvvWPWOIYNorman Specialty Hospital – [facility] PPGStart: 03-20-2024 End: 58-55-2127RcmqmwRvnzqj G Furlong DO Work Phone: Yojana [facility]ai [facility] - Medical OncologyStart: 02-27-2024 End: 04-47-1544NvzamrFdfpey Kemar Cornejolong DO Work Phone: [facility] Physicians Internal Medicine - [facility] MedicineStart: 02-09-2024 End: 25-27-1493Hxtbjf outpatient visit 15 minutesDennis Kemar Cornejolong DO Work Phone: [facility] Phys[facility] Internal Medicine - Family MedicineComment on above:Concussion without loss of consciousness, initial encounter (Primary Dx); Strain of neck muscle, initial encounter; Strain of right shoulder, initial encounter; Overweight; Contusion of left knee, initial encounterStart: 02-09-2024 End: 26-19-2077hhenhceuuiWSUMWI G [facility] Ambulatory PPGStart: 02-07-2024 End: 05-12-7070Dquaxjlks encounterZaralexy Porter [employer] [facility]-[employer] WHITTLER Work Phone: [facility] Internal [facility] - [facility] MedicineStart: 01-27-2024 End: 28-19-1708FsktgoMorton Hospital Kemar Cornejoadair county health system DO Work Phone: [facility] Internal [facility] - [facility] MedicineStart: 01-26-2024 End: 28-17-0922VfljoxKqke Rose Kuns [employer] [facility]-PLASTER WHITTLER Work Phone: [facility] Internal Medicine - Family MedicineComment on above:Rheumatoid arthritis involving multiple sites, unspecified whether rheumatoid factor present ([facility])Start: 12-26-2023 End: 93-70-0603XzxwvhSvxtcj G Furlong DO Work Phone: Martha [facility] - Medical OncologyStart: 44-47-8831JxjptdBdol Ayala Love DO Work Phone: [facility] Internal [facility] - [facility] MedicineStart: 12-05-2023 End: 66-11-8824iodnhoxlwjDWDTTriHealth Bethesda Butler Hospitaltart: 12-05-2023 End: 18-75-8172Crgllz outpatient visit 25 minutesDemetra Porter [employer] [facility]-[employer] WHITTLER Work Phone: [facility] Internal Medicine - Family MedicineComment on above:Rheumatoid arthritis involving multiple sites, unspecified whether rheumatoid factor present ([facility]) (Primary Dx); Status post partial amputation of left foot ([facility]); Diabetic polyneuropathy associated with type 2 diabetes mellitus ([facility]-HCC); Severe depression ([facility]); PAD (peripheral artery disease) ([facility]); Compression fracture of L1 vertebra with routine healing, subsequent encounter; Mixed hyperlipidemiaStart: 12-05-2023 End: 88-21-6747liuiqjqiayYSJRCordell Memorial Hospital – [facility] PPGStart: 33-10-9489Acfrbb Traic Porter [employer] [facility]-[employer] WHITTLER Work Phone: [facility] - Family MedicineStart: 26-14-0851Ytmwak Traci Porter [employer] [facility]-[employer]ER WHITTLER Work Phone: [facility] - Family MedicineStart: 90-52-3021FscvqhEuihju G Furlong DO Work Phone: [facility] - Medical OncologyComment on above:Compression fracture of L1 vertebra with routine healing, subsequent encounterStart: 39-14-7449QvyeykBirebr G Furlong DO Work Phone: [facility] - Medical OncologyComment on above:Compression fracture of L1 vertebra with routine healing, subsequent encounterStart: 76-97-2543RlwwyhUikskp G Furlong DO Work Phone: [facility] - Medical OncologyComment on above:Compression fracture of L1 vertebra with routine healing, subsequent encounterStart: 87-10-3204WkpyhxQxwidd G Furlong DO Work Phone: [facility] - Medical OncologyComment on above:Compression fracture of L1 vertebra with routine healing, subsequent encounterStart: 75-34-8765ZabxazGddpug G Furlong DO Work Phone: [facility] - Medical OncologyComment on above:Compression fracture of L1 vertebra with routine healing, subsequent encounterStart: 72-42-5396Dhfqmg OnlyDennis G Furlong DO Work Phone: [facility] - Family MedicineComment on above:Compression fracture of L1 vertebra with routine healing, subsequent encounterStart: 10-17-2022 End: 89-90-4418ajojijbskbQC ZEN G FURLONGFacility:S7Ghdpk: 08-17-2022 ambulatoryKIMBER CULLENFacility:M6Xzhkn: 08-04-2022 End: 06-20-3678uyjuunuontAZ ZEN G FURLONGFacility:T3Nueev: 06-15-2022 End: 47-51-7809tnhcnxnejzTGZSHFGV CULLENFacility:W2Iobzf: 19-56-7994Ypmmydjpl for preprocedural cardiovascular examinationPETER D [facility] HospitalStart: 20-50-9932Kxwjuqmpa for preprocedural laboratory examinationPETER D [facility] HospitalStart: 05-31-2022 End: 21-07-5600xszcojuqlbGP ZEN G FURLONGFacility:W8Fdjeg: 05-27-2022 End: 14-42-4883krqnbuikftFUADG D HIGHLANDERFacility:J9Ysamh: 05-27-2022 End: 14-02-1637Pmxoierlx for preprocedural cardiovascular examinationPETER D [facility]PITALANDERFacility:F6Bitrk: 05-19-2022 End: 57-79-1125qvfyzqhoulNV ZEN G FURLONGFacility:U5Rwsoh: 05-18-2022 End: 56-10-3651sbbrrkwiyhHRMZK D HIGHLANDERFacility:G8Hvrcu: 05-13-2022 End: 71-98-1740unitoipehbNBRCM D HIGHLANDERFacility:J1Dvotk: 05-07-2022 End: 70-10-0619rcjqysqoyzSHHHN D HIGHLANDERFacility:A5Evxit: 04-30-2022 End: 95-03-4079udllxhmkpsNP ZEN G FURLONGFacility:S8Rlpts: 04-16-2022 End: 83-83-5956pfqcmkztiuCEDQR D HIGHLANDERFacility:A2Mwzhf: 04-09-2022 End: 54-81-9307rgyncwogwmUKHSW D HIGHLANDERFacility:G4Rshjv: 04-01-2022 End: 15-27-6427rojmprgsgcVEIFC D HIGHLANDERFacility:Z2Czzdx: 03-25-2022 End: 94-54-5311eawennzqkmYGJLD D HIGHLANDERFacility:L7Bedag: 03-18-2022 End: 66-00-8569giusjifthjZXIYZ D HIGHLANDERFacility:K4Eveik: 24-03-4870Gzjwgjmvw for preprocedural laboratory examinationPETER D [facility] Start: 03-13-2022 End: 19-80-7691Scqxpzajar and management of inpatientDR RUDOLPH HURT Facility:L6Ujalf: 03-11-2022 End: 84-92-1360sagkbaqwfmJZ ZEN Reinoso FURLONGFacility:C3Bmflh: 03-06-2022 End: 54-04-1142zjrdmoygqyHLGHE D [facility]OSPITALANDERFacility:D1Uxmap: 03-06-2022 End: 26-43-7472Zstvhqeee for preprocedural laboratory examinationPETER D [facility] CLINICSFacility:X4Ducvd: 03-01-2022 End: 11-11-0586dhogzxlonuVHDIM D [facility] CLINICSFacility:H7Zimky: 02-18-2022 End: 50-10-6016vagshxmyqsBY CAMDENJero TAPIAFacility:F1Zfytq: 02-16-2022 End: 30-21-3643tcduuaijakOYQLM D [facility]ITALANDERFacility:E3Wsnph: 01-26-2022 End: 88-30-3089uptncsquewFYTEY D [facility]ITALANDERFacility:B7Nanxs: 01-22-2022 End: 59-41-1733ugpmwbuzywMCBQL D [facility]ITALANDERFacility:U3Ueust: 12-30-2021 End: 68-61-3759uhawqbkwwvYJZNO D [facility] CLINICSFacility:M0Rntum: 11-03-2021 End: 98-35-2656rnlpxzbviiSN ZEN CULPKATYFacility:C8Gfyea: 10-27-2021 End: 65-52-8922xtfbnorliuHQ DEMETRA PORTERFacility:V2Slmow: 07-27-2021 End: 99-54-1950xdmvseujanBduiy Osito Other [facility] [employer] Other Start: 49-42-7843Vqrivi outpatient visit 15 minutes Veronica ChelyyFPG Urgent Care ClydeStart: 07-17-2020 End: 06-92-3592Bdmhgpy encounter procedureREFERRED SELFFacility:UTMCStart: 06-30-2020 End: 11-93-7418Qpmlhiegfh and management of inpatientREFERRED SELFFacility:[facility] Procedures DateProcedureProcedure DetailPerforming ClinicianStart: 12-97-0718Gdiz bld gluc mntr dev cleared fda spec home useZeyad Tate MD Work Phone: Start: 40-51-1627Kjokeqxymg examination tibia & fibula 2 viewsGeneric External Data ProviderStart: 20-24-3358QAO CBC WITH AUTO DIFF Generic External Data ProviderStart: 14-63-8639Bk lower extremity w/o contrast materialGeneric External Data ProviderStart: 55-55-4295NB ECHO DOPPLER COMPLETE Generic External Data ProviderStart: 35-39-4832USZ APTTGeneric External Data ProviderStart: 96-07-8690JDFWMD PROTHROMBIN TIME INR W/O COUMGeneric External Data ProviderStart: 82-22-1524Mwqggr citrullinated peptide antibodyDEMETRA PORTER Comment on above:Result Comment: Interpretation-------- <3 Negative >=3 Positive Performed By: #### [id number], 3016-3 #### [facility] ([id number]) [address] [place], [place] [address]Vvidu: 23-34-0414Mvhm bld gluc mntr dev cleared fda spec home useZeyad Tate MD Work Phone: Start: 74-17-6470Ozeds depression screening assessment Zen Furlong DO Work Phone: Start: 65-51-6844Huudw depression screening assessment Zen Furlong DO Work Phone: Start: 01-11-6693Swuumm-up visitFollow-Raina CULPNGStart: 17-25-8289Ctxno depression screening assessmentDemetra Porter [employer] [facility] Work Phone: Start: 03-05-7359Zcfuk depression screening assessment Demetra Porter [employer] [facility] WH[employer] Work Phone: Start: 72-26-4217Obdtt depression screening assessment Zen Viera DO Work Phone: Start: 77-57-0304Brnsyrjb retinal eye examDennis Sandra DO Work Phone: Start: 54-32-8810Ztplplin of Left Foot Muscle, Open ApproachSELECT SPECIALTY HOSPITAL - CAMP HILLStart: 36-44-6483Rzdqazag of Left Foot Subcutaneous Tissue and Fascia, Open ApproachPenn State Healthart: 08-61-1456Ogcfhktaw of Right Metatarsal, Open ApproachPenn State Healthart: 24-40-6279Hdjnzbk of cholecystectomyHistory of cholecystectomyDenemanuel CulpKAI Square DO Work Phone: Start: 59-12-1775Xllcwjs of coronary artery bypass graftingHistory of coronary artery bypass surgeryDenAble Imaging ChantalM9 Defense DO Work Phone: Start: 20-82-9927Zjwzwdf of placement of stent for coronary artery diseaseHistory of coronary artery stent placementDenAble Imaging ChantalM9 Defense DO Work Phone: Start: 67-49-9787Uytlgzcxdye examination of blood, cultureTemple University Hospital on above:Performed By: #### [id number] ####[facility] [address] [address]DrKasia Clement Start: 31-42-2355Byxggedxmu at Left Foot, Partial 4th Ray, Open ApproachSELECT SPECIALTY HOSPITAL - CAMP HILLStart: 40-54-2912Wgmjzsby of Left Foot Subcutaneous Tissue and Fascia, Percutaneous ApproachPenn State Healthart: 44-52-3645Ljjhebva of Left Lower Leg Tendon, Open ApproachPenn State Healthart: 14-60-9729UVG LT METATRSL SSMD BNE 1ST TOE OPSELECT SPECIALTY HOSPITAL - CAMP HILLStart: 51-33-1895Svkrwfksqf at Left Foot, Partial 4th Ray, Open ApproachPenn State Healthart: 91-07-5365Cdemggyi of Left Lower Leg Tendon, Open ApproachPenn State Healthart: 31-98-1907MGO LT METATRSL SSMD BNE 1ST TOE OPSELECT SPECIALTY HOSPITAL - CAMP HILLStart: 47-08-8497Kberzwfl of Left Foot Subcutaneous Tissue and Fascia, Open ApproachPEASCENSION ST. MICHAEL HOSPITALStart: 98-36-8327NYPYKVFBJH LUMBAR VERTEBRA WITH SYNTH SUB, PERC APPROACHHOSSEIN Alena MILLSGAFYStart: 06-30-2020 Antibody screenREFERRED SELFComment on above:Performed By: #### [id number] #### [facility] [address] Plan of Treatment DateCare ActivityDetailAuthorStart: 38-37-3747DDpU,Tdap and Td Vaccines (2 - Td or Tdap)DTaP,Tdap and Td Vaccines (2 - Td or Tdap)[facility] SystemStart: 04-97-7219Abtha BMI ScreeningAdult BMI ScreeningProMemorial Health System Sel[facility] General Hospitalca [facility] SystemStart: 42-70-0064Tbqfitnxs for malignant neoplasm of breastMammogramNOIN Healthcare Comment on above:Postponed from 1999 (Patient Refused)Start: 09-19-2025 Screening for malignant neoplasm of colonColorectal Cancer ScreeningNOIN HealthcareComment on above:Postponed from 1959 (Patient Refused)Start: 09-16-2025 End: 03-65-3815Llzwjph encounter ggetilqbe55/12/2026 1:15 PM EST Office Visit [facility] [address] [place] [address] Rudolph Hurt MD [address] [place] [phone] [facility] FMStart: 98-78-5370Rgtuqwvkyh A1c measurementDiabetes: Hemoglobin K0XOXLU HealthcareStart: 05-72-2641Kgcjatxzrydd Vaccine: 65+ Years (3 of 3 - PCV20 or PCV21)Pneumococcal Vaccine: 65+ Years (3 of 3 - PCV20 or PCV21)[facility] HealthcareStart: 43-08-6810Pimgjtihk vaccinationNOIN HealthcareStart: 04-13-2025 Adult BMI ScreeningAdult BMI ScreeningProMedica [facility] SystemStart: 04-13-2025 Depression ScreeningDepression ScreeningProMemorial Health System [facility] Hospitalca [facility] SystemStart: 04-13-2025 Tobacco ScreeningTobacco ScreeningDelaware County Hospitalca [facility] SystemStart: 04-01-2025 End: 69-22-2888Ffrdbsa encounter snouvegah94/28/2025 2:10 PM EDT Office Visit [facility] [address] [place] [phone] Zeyad Tate MD [address] [place] [address] [facility] ENDOCRINOLOGYStart: 58-03-7197Xqeno screening for proteinDiabetes: Urine Protein ScreeningNOIN HealthcareStart: 03-26-2025 Adult BMI ScreeningAdult BMI ScreeningSelect [facility] Specialty [facility] SystemStart: 03-26-2025 Depression ScreeningDepression ScreeningSelect Medical Specialty [facility] SystemStart: 03-26-2025 Tobacco ScreeningTobacco ScreeningSelect Medical Specialty [facility] SystemStart: 03-14-2025 End: 34-93-1889Fkcifcp encounter procedureNOMS M FMComment on above:Arrived Start: 21-77-9957Pyjnwexerh A1c measurementDiabetes: Hemoglobin R2HWZEB HealthcareStart: 50-87-4839Gcchhxqcr for malignant neoplasm of colonColonoscopy ProMNorthfield City Hospital SystemComment on above:Postponed from 11/19/2022 (Patient Refused)Start: 01-10-2625Frrijhf ScreeningTobacco ScreeningSelect Medical Specialty [facility] SystemStart: 60-20-4584Zebsy BMI ScreeningAdult BMI ScreeningSelect Medical Specialty [facility] SystemStart: 57-29-1897Gnlsuptzid ScreeningDepression ScreeningSelect [facility] Specialty [facility] SystemStart: 07-21-2592Zvxhgls ScreeningTobacco ScreeningDelaware County Hospitalca [facility] Start: 01-15-2025 End: 79-03-5496MY Heart Perfusion W single state of exerciseStress test with myocardial perfusion Cardiac Nuclear Medicine Routine Chest pain at rest Coronary artery disease involving timbi-sha shoshone coronary artery of timbi-sha shoshone heart without angina pectoris (CMS/HCC) Expected: 01/15/2025 (Approximate), Expires: 01/15/2027NOIN HealthcareComment on above:Expected: 01/15/2025 (Approximate), Expires: 01/15/2027Start: 12-31-2024 End: 77-10-7519Adrqdup encounter procedureNOCOX NORTH ENDOCRINOLOGYComment on above: Type 1 diabetes mellitus with hyperglycemia (HCC) ([facility]/HCC)Start: 12-20-2024 End: 51-49-2170HGP W Auto Differential panel - BloodCBC auto differential Lab Routine Rheumatoid arthritis involving multiple sites, unspecified whether rheumatoid factor present ([facility]) Long-term use of leflunomide therapy Expected: 12/20/2024 (Approximate), Expires: 11/19/2025ProJohn [facility] Comment on above:Expected: 12/20/2024 (Approximate), Expires: 11/19/2025Start: 12-20-2024 End: 57-00-8749Dnscibfycktph metabolic 2000 panel - Serum or PlasmaComprehensive metabolic panel Lab Routine Rheumatoid arthritis involving multiple sites, unspecified whether rheumatoid factor present ([facility]) Long-term use of leflunomide therapy Expected: 12/20/2024 (Approximate), Expires: 11/19/2025 [facility] SystemComment on above:Expected: 12/20/2024 (Approximate), Expires: 11/19/2025Start: 12-19-2024 End: 27-93-9943Yzjgwlg encounter lplwxirqf70/16/2025 3:00 PM EDT Office Visit [facility], A Department of [facility] [address] [phone] Collin Saba MD [address] [address] [facility], A Department [facility] Centertart: 12-11-2024 End: 50-08-1747Ueyhxju encounter vdyeupzgb71/08/2025 1:50 PM EDT Office Visit [facility] [address] [place] [phone] Zeyad Tate MD [address] [place] [address] [facility] ENDOCRINOLOGYStart: 12-10-2024 End: 33-79-2689Prlieer encounter procedureNOMS CWM FMComment on above:Arrived Start: 30-88-8575Jnrnr BMI ScreeningAdult BMI ScreeningSub[facility] Start: 14-05-9284Dhwsstnhhe ScreeningDepression ScreeningSuburban [facility] Start: 15-81-8446Rzbtuin ScreeningTobacco ScreeningCritical access hospitaltart: 12-03-2024 End: 53-56-0397NEB W Auto Differential panel - BloodCBC auto differential Lab Routine Rheumatoid arthritis involving multiple sites, unspecified whether rheumatoid factor present ([facility]) Long-term use of leflunomide therapy Expected: 12/03/2024 (Approximate), Expires: 11/19/2025[facility] [facility] Comment on above:Expected: 12/03/2024 (Approximate), Expires: 11/19/2025Start: 12-03-2024 End: 57-81-9955Otskpqjghveew metabolic 2000 panel - Serum or PlasmaComprehensive metabolic panel Lab Routine Rheumatoid arthritis involving multiple sites, unspecified whether rheumatoid factor present ([facility]) Long-term use of leflunomide therapy Expected: 12/03/2024 (Approximate), Expires: 11/19/2025 [facility]Expected: 12/03/2024 (Approximate), Expires: 11/19/2025Start: 11-27-2024 End: 61-72-2733Whednrw encounter oubbjhfyh69/25/2025 1:40 PM EDT [facility] [address] [place] [phone] Zeyad Tate MD [address] [place] [address] [facility]Start: 11-19-2024 End: 18-97-3295C-reactive proteinC-reactive protein Lab Routine Rheumatoid arthritis involving multiple sites, unspecified whether rheumatoid factor present ([facility]) Expected: 11/19/2024 (Approximate), Expires: 11/19/2025 [facility]Comment on above:Expected: 11/19/2024 (Approximate), Expires: 11/19/2025Start: 11-19-2024 End: 19-73-0988BQM W Auto Differential panel - [facility]Sub[facility] Comment on above:Expected: 11/19/2024 (Approximate), Expires: 11/19/2025Start: 11-19-2024 End: 20-10-1945Cgfxyxmjzaonk metabolic 2000 panel - Serum or PlasmaSuburban Community Hospital & [facility] HospitalComment on above:Expected: 11/19/2024 (Approximate), Expires: 11/19/2025Start: 11-19-2024 End: 04-76-0259Xlqnlmrndnwebc vitamin b-12Vitamin B12 Lab Routine Rheumatoid arthritis involving multiple sites, unspecified whether rheumatoid factor present ([facility]) Expected: 11/19/2024, Expires: 11/19/2025[facility] HospitalComment on above:Expected: 11/19/2024, Expires: 11/19/2025Start: 11-19-2024 End: 08-19-3426Eceqrefbcug sedimentation rateErythrocyte Sedimentation Rate (ESR) Lab Routine Rheumatoid arthritis involving multiple sites, unspecified whether rheumatoid factor present ([facility]) Expected: 11/19/2024 (Approximate), Expires: 11/19/2025[facility] HospitalComment on above:Expected: 11/19/2024 (Approximate), Expires: 11/19/2025Start: 31-87-3522Nvceomamdv A1c measurement Diabetes: Hemoglobin P0WRQCTChristian HospitalStart: 11-19-2024 End: 16-67-1174Gnovglwhprd [Units/volume] in Serum or PlasmaSuburban Community Hospital & [facility] HospitalComment on above:Expected: 11/19/2024, Expires: 11/19/2025Start: 11-19-2024 End: 84-67-5138Aselxuj D 25 hydroxyVitamin D 25 hydroxy Lab Routine Rheumatoid arthritis involving multiple sites, unspecified whetherrheumatoid factor present ([facility]) Expected: 11/19/2024, Expires: 11/19/2025[employer] Work Phone: comment on above:Expected: 11/19/2024, Expires: 11/19/2025Start: 11-19-2024 End: 20-07-1014[employer] Survey ViewsSelect Medical Specialty Hospital - Canton SystemComment on above:Expected: 11/19/2024, Expires: 11/19/2025Start: 11-19-2024 End: 63-91-8299TG Chest PA and LateralProWood County Hospital SystemComment on above: Expected: 11/19/2024, Expires: 11/19/2025Start: 09-19-2024 End: 81-38-3034Wisoq metabolic 1998 panel - Serum or PlasmaBasic metabolic panel Lab Routine Encounter for long-term (current) use of medications Expected: (Approximate), Expires: 09/19/2025NOIN HealthcareComment on above: Expected: 09/19/2024 (Approximate), Expires: 09/19/2025Start: 09-19-2024 End: 75-11-2098KIR W Auto Differential panel - BloodCBC and differential Lab Routine Encounter for long-term (current) use of medications Expected: 09/05 (Approximate), Expires: 09/19/2025NOIN HealthcareComment on above: Expected: 09/19/2024 (Approximate), Expires: 09/19/2025Start: 09-19-2024 End: 78-54-5370Boflucqcyud sedimentation rateSedimentation rate, automated Lab Routine Rheumatoid arthritis involving multiple sites with positive rheumatoid factor ([facility]) Expected: 09/19/2024 (Approximate), Expires: 09/19/2025NOIN HealthcareComment on above:Expected: 09/19/2024 (Approximate), Expires: 09/19/2025Start: 09-19-2024 End: 35-90-7689Yxtdzsw function 2000 panel - Serum or PlasmaHepatic function panel Lab Routine Encounter for long-term (current) use of medications Expected: 09/19/2024 (Approximate), Expires: 09/19/2025NOMS HealthcareComment on above: Expected: 09/19/2024 (Approximate), Expires: 09/19/2025Start: 09-19-2024 End: 55-93-8390Lbfvj 1996 panel - Serum or PlasmaLipid panel Lab Routine Dyslipidemia ([facility]) Expected: 09/19/2024 (Approximate), Expires: 09/19/2025 [facility] HealthcareComment on above:Expected: 09/19/2024 (Approximate), Expires: 09/19/2025Start: 09-19-2024 End: 64-56-2932Qhzyoifnci factor [Units/volume] in Serum or PlasmaRheumatoid factor Lab Routine Rheumatoid arthritis involving multiple sites with positive rheumatoid factor ([facility]) Expected: 09/19/2024 (Approximate), Expires: 09/19/2025[facility] Work Phone: Comment on above:Expected: 09/19/2024 (Approximate), Expires: 09/19/2025Start: 09-19-2024 End: 13-31-5727Huhtsnz encounter /15/2025 11:30 AM EST Office Visit [facility] [address] [place] [address] Rudolph Hurt MD [address] [place] [address] ArrivedNOATOKA COUNTY [facility] – ATOKA FMComment on above:ArrivedStart: 08-21-2024 End: 69-94-7214Otcpzfm encounter bdzxjwnum79/17/2024 1:20 PM EST Office Visit [facility] [address] [place] [phone] Zeyad Tate MD [address] [place] [address] ArrivedNOCOX NORTH ENDOCRINOLOGYComment on above:Arrived Start: 80-46-6172Ifvtv BMI ScreeningAdult BMI ScreeningProWood County Hospital System Start: 95-45-6086Knhzrrogsk ScreeningDepression ScreeningSelect Medical Specialty Hospital [facility] System Start: 11-07-2024Medicare Annual Wellness (AWV)Medicare Annual Wellness (AWV) [facility] HealthcareStart: 27-65-1799Plcqrjr ScreeningTobacco ScreeningSelect Medical Specialty Hospital [facility] SystemStart: 84-79-0293Mbjpalsx screeningDiabetic Ophthalmology Exam [facility] SystemStart: 53-65-0112Prlxoyxgy [facility] Start: 04-17-2024 End: 88-80-5535Ukivsml encounter /13/2024 11:45 AM EDT Office Visit [facility] [address] [phone] Collin Saba MD [address] [address] [facility] RheumatologyStart: 04-13-2024 End: 44-64-5278Taoyxgy encounter rtngewile66/09/2024 11:30 AM EDT [facility] [address] [facility] [address] Zen Viera DO [address], [facility] [place] [address] [facility] - Family MedicineStart: 03-26-2024 End: 09-41-2343Nghvuxy encounter novvegtqh16/22/2024 1:30 PM EDT Office Visit [facility] - Family Medicine [address] [place] [address] Zen Viera DO [address] [place] [address] [facility] - Family MedicineStart: 03-19-2024 End: 51-97-0470Tsrbujc encounter bgboejbvb70/15/2024 2:15 PM EDT Office Visit [facility] - Family Medicine [address] [place] [address] Zen Viera DO [address], [place] [address] [facility] Medicine [facility] MedicineStart: 74-90-7329Iyotvwgmz for malignant neoplasm of breastMammogramProMemorial Health System Selby General Hospitalca Health SystemComment on above: Postponed from 11/19/2022 (Patient Refused)Start: 89-08-5603Yyzkovyfx for malignant neoplasm of colonColonoscopyDelaware County Hospitalca [facility] SystemComment on above: Postponed from 11/19/2022 (Patient Refused)Start: 11-10-2023 End: 39-24-5533Vbryhjs encounter /07/2024 1:50 PM EST Office Visit [facility] [address] [place] [address] Zen Viera, [address], [place] [address] [facility] MedicineStart: 06-24-4170Eognjavn foot examinationDiabetic Foot ExamSelect Medical Specialty Hospital - [facility] SystemStart: 19-92-6824Kpjcskxyr for malignant neoplasm of breastMammogramProMemorial Health System Selby General Hospitalca Health SystemStart: 69-32-8765Ejrmnskow for malignant neoplasm of colonColonoscopySelect Medical Specialty Hospital [facility] SystemStart: 08-59-9660Julatkymtt A1c measurementDiabetes: Hemoglobin A9EONLF HealthcareStart: 77-66-5511Cqczfvjwssgdpw of varicella zoster vaccineZoster (Shingles) Vaccine (1 of 2)[facility] SystemStart: 45-84-8896Ijyivpaay for malignant neoplasm of breastMammogramNOMS HealthcareStart: 13-67-2332Rrbgkrarh for malignant neoplasm of cervixNOMS HealthcareStart: 04-06-7331Rilijnaga for malignant neoplasm of cervixPap SmearNOMS HealthcareStart: 29-23-0847Ftapj BMI Follow Up PlanAdult BMI Follow Up [facility] TRAKLOK Kaleida Healthtart: 12[birth year]20-1970 Glaucoma screeningDiabetes: Retinopathy ScreeningChristian HospitalStart: 34-55-8841Fmfjqxsej for malignant neoplasm of colonChristian Hospital End: 44-73-6306Okeom metabolic 1999 panel - Serum or PlasmaBasic Metabolic Panel Lab Routine 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 ([facility])1 Occurrences starting 04/13/2024 until 04/13/2025[facility] HospitalDB Networks Work Phone: Comment on above:1 Occurrences starting 04/13/2024 until 04/13/2025 reactive protein [Mass/volume] in Serum or PlasmaC-reactive protein Lab Routine Rheumatoid arthritis involving multiple sites, unspecified whether rheumatoid factor present ([facility]) 11/19/2024 2:38 PM [employer] End: 83-77-8068KLG panel - Blood by Automated countCBC Lab Routine Other fatigue 1 Occurrences starting 03/26/2024 until 03/26/2025Del[facility] County HospitalPrism [employer] [facility] Comment on above:1 Occurrences starting 03/26/2024 until 03/26/2025 End: 80-03-6921ZKC AbCCP Ab Lab Routine Rheumatoid arthritis involving multiple sites, unspecified whether rheumatoid factor present ([facility]) 1 Occurrences starting 11/19/2024 until 11/19/2025Del[facility] County HospitalPrism Sk[facility] HospitalComment on above:1 Occurrences starting 11/19/2024 until 11/19/2025obalamin (Vitamin B12) [Mass/volume] in Serum or PlasmaVitamin B12 Lab Routine Rheumatoid arthritis involving multiple sites, unspecified whether rheumatoid factor present ([facility]) 11/19/2024 2:38 PM [employer] End: 34-76-5639Pnvkwfbmkkygd metabolic 1999 panel - Serum or PlasmaComprehensive metabolic panel Lab Routine Primary hypertension 1 Occurrences starting 03/26/2024 until 03/26/2025Del[facility] County HospitalPrism Sk[employer] HospitalComment on above:1 Occurrences starting 03/26/2024 until 5CT Lower leg - right WO [facility] CampusCyclic citrullinated peptide IgG Ab [Units/volume] in Serum or PlasmaCCP Ab Lab Routine Rheumatoid arthritis involving multiple sites, unspecified whether rheumatoid factor present ([facility]) 11/19/2024 2:38 PM EDT [facility] End: 78-89-6079Rwuh Screen, UrineDrug Screen, Urine Lab Routine Medication monitoring encounter 1 Occurrences starting 03/26/2024 until 03/26/2025ProMemorial Health System [facility] General Hospitalca Work Phone: Comment on above:1 Occurrences starting 03/26/2024 until 03/26/2025 End: 49-63-8375Rcpm Screen, UrineDrug Screen, Urine Lab Routine Medication monitoring encounter Rheumatoid arthritis involving multiple sites, unspecified whether rheumatoid factor present ([facility]) 1 Occurrences starting 04/03/2024 until 04/03/2025ProMemorial Health System Selby General HospitalFloxx Work Phone: Comment on above:1 Occurrences starting 04/03/2024 until 04/03/2025Erythrocyte sedimentation rate by Photometric methodErythrocyte Sedimentation Rate (ESR) Lab Routine Rheumatoid arthritis involving multiple sites, unspecified whether rheumatoid factor present ([facility]) 11/19/2024 2:38 PM [facility]Memorial Hospital End: 16-61-4715Eaopjwjpayqs - Albumin: Creatinine Urine RatioMicroalbumin - Albumin: Creatinine Urine Ratio Lab Routine Type 1 diabetes mellitus with diabetic polyneuropathy ([facility]) 1 Occurrences starting 03/26/2024 until 03/26/2025[facility] HospitalComment on above:1 Occurrences starting 03/26/2024 until 03/26/2025Pulmonary function reportPulmonary Function Test Imaging Routine SOB (shortness of breath) on exertion Ordered: 01/15/2025[facility] Work Phone: Comment on above:Ordered: 01/15/2025 End: 66-09-3716Nvuteecwdu factorRheumatoid factor Lab Routine Rheumatoid arthritis involving multiple sites, unspecified whether rheumatoid factor present ([facility]) 1 Occurrences starting 11/19/2024 until 11/19/2025[facility] SystemComment on above:1 Occurrences starting 11/19/2024 until 11/19/2025 Rheumatoid factor [Units/volume] in Serum by NephelometryRheumatoid factor Lab Routine Rheumatoid arthritis involving multiple sites, unspecified whether rhe umatoid factor present ([facility]) 11/19/2024 2:38 PM [facility] Vitamin D+Metabolites [Mass/volume] in Serum or PlasmaVitamin D 25 hydroxy Lab Routine Rheumatoid arthritis involving multiple sites, unspecified whether rheumatoid factor present ([facility]) 11/19/2024 2:38 PM [facility] Immunizations Immunization DateImmunizationNotesCare AokyvageIfrmvxxs34-87-8682fokuavnnm, injectable, quadrivalent, preservative freeDennis Furlong DO Work Phone: [facility] HospitalLiieic31-48-9609hfwenyjgw virus vaccine, unspecified formulationDennis Furlong DO Work Phone: [facility] HospitalTxktux58-10-8237qivgdbueq, injectable, quadrivalent, preservative freeDennis Furlong DO Work Phone: [facility] HospitalCumwmzsadt11-31-2082Xqrokj Purple Cap SARS-CoV-2 VaccinationAhmargarita Tate MD Work Phone: [facility] HospitalVkasyppfaf09-40-4842izcafjldr, injectable, quadrivalent, preservative freeDennis Furlong DO Work Phone: [facility] HospitalSmjvezoyyw05-76-8954Wcnppk Purple Cap SARS-CoV-2 VaccinationAhmargarita Tate MD Work Phone: NOBoone Hospital CenterAtitnkmbio25-03-5221UAWXC-84, mRNA, LNP-S, PF, 30mcg/0.3mL DoseDennis Furlong DO Work Phone: Christian HospitalBcxqznqaor97-66-7964KNYM-PMC-2 (COVID-19) Vaccine, UnspecifiedDennis Furlong DO Work Phone: [facility] HospitalBrgslg22-52-0833nmomtmyuxqnf conjugate vaccine, 13 valentDennis Furlong DO Work Phone: [facility] HospitalDkqetj37-86-6764bkdqwttxi virus vaccine, unspecified formulationDennis Furlong DO Work Phone: [facility] HospitalSirnpj56-26-1506qlbavpillbjb vaccine, unspecified formulationDennis Furlong DO Work Phone: [facility] HospitalLxldxg43-64-0493ifbhlahbv, injectable, quadrivalent, preservative freeDennis Furlong DO Work Phone: [facility] HospitalAlkjakkfzj15-51-1942purrgoujebdk polysaccharide vaccine, 23 valentDennis Furlong DO Work Phone: [facility] HospitalQgdcrjvwvi44-49-4456vjjcdyw toxoid, reduced diphtheria toxoid, and acellular pertussis vaccine, adsorbedDennis Furlong DO Work Phone: [facility] HospitalOhewluneuc81-40-4968ckemhbbfw, injectable, quadrivalent, preservative freeDennis Furlong DO Work Phone: Christian HospitalSmgdxhhcxe43-12-0457ynbuimyvs, seasonal, Juan Tate MD Work Phone: noBoone Hospital CenterEwgqoyvpey76-09-3053yzouerb toxoid, unspecified formulationDennis Furlong DO Work Phone: [facility] Payers DatePayer CategoryPayerPolicy ID2023Medicaid [id number] [id number] 2022MedicareAETNA MEDICARE AETNA MEDICARE PLAN (HMO) [id number] 2021-Present [phone] [address] [place] [address] [id number] 2022Medicare HMOAETNA MEDICARE [id number] 2.16.840.1.062943.3.57[id number] 2.16.840.1.913903.3.57[id number] 2.16.840.1.850649.3.57[id number] 2.16.840.1.619764.3.57[id number] 2.16.840.1.103612.3.579.2.80499-40-2130Hgdhizg1356805 2.16.840.1.028877.3.579.2.59249-19-3957Wzwzqhy2440947 2.16.840.1.489080.3.579.2.01381-92-1902Gfoldks3936089 2.16.840.1.860099.3.57[id number] 2.16.840.1.373643.3.579.2.24256-80-9636Dgrdjha1591847 2.16.840.1.774708.3.579.2.88849-75-2563Moxoyjl3048594 2.16.840.1.486390.3.579.2.28395-70-1031Vqdsxuj2951986 2.16.840.1.763654.3.579.2.32344-83-1284Khhglua6083946 2.16.840.1.937609.3.579.2.64428-67-2627Rjlmkee7210357 2.16.840.1.333994.3.579.2.48325-77-8253Cfvcqct4858960 2.16.840.1.860185.3.579.2.24246-70-9149Hmklrpf1238277 2.16.840.1.834835.3.579.2.44850-54-9833Pjgszyr3117170 2.16.840.1.272321.3.579.2.02596-65-5849Paoydkz0875021 2..840.1.133788.3.579.2.66265-11-9153Pneaqgr9339923 2..840.1.983696.3.579.2.16139-36-9329Inhjqjm7784136 2.840.1.257339.3.579.2.15158-66-4412Xlzypka0683641 2..840.1.388962.3.579.2.87720-82-1074Kuguixs8921347 2..840.1.927364.3.579.2.82273-41-1846Plqlbtn7095517 2.840.1.643849.3.579.2.20656-31-1796Kmvlgmv0811551 2..840.1.611914.3.579.2.65249-76-9484Qdowgvw7405024 2.840.1.114894.3.579.2.56494-53-2138Pkhbizp0825607 2..840.1.632472.3.579.2.37855-54-7432Yhknqds8221718 2.16.840.1.908591.3.579.2.11079-73-9903Qwmivzf2537794 2.16.840.1.227558.3.579.2.28984-61-3124Cvnggtb2342705 2.840.1.401942.3.579.2.65130-10-4796Yyxxwau0271670 2..840.1.446377.3.579.2.27005-41-3046Bfvkagh22812856 2.840.1.237509.3.579.2.488109-92-8421Ecgwhmt83398547 2.840.1.948355.3.579.2.924573-64-6879Xdvpgnl12547611 2.0.1.466919.3.579.2.406501-83-5843Bdjrxpg46085569 2.840.1.770320.3.579.2.487529-35-5886Rleyrxg63362943 2.0.1.652986.3.579.2.059203-18-8695Hqkiydd209851168 2.0.1.284820.3.579.2.984302-30-4682Taucswi765278106 2.840.1.513366.3.579.2.841186-61-3162Kqocgqq051225664 2.0.1.498239.3.579.2.929657-37-5064Ujarmcj485639201 2.840.1.118745.3.579.2.863457-92-1690Offfooi33206238 2.0.1.194398.3.579.2.518189-85-5007Pvpswmm37345812 2.840.1.698954.3.579.2.431444-20-7626Rpaanlt72917028 2.840.1.069787.3.579.2.184617-05-8813Veebzzb74531882 2.16.840.1.680914.3.579.2.215650-42-1605Eqbtczl74075575 2.16.840.1.344078.3.579.2.894604-31-5527Xnqgeig7638960 2.16.840.1.038174.3.579.2.786001-59-8072Topqlbq9178359 2.16.840.1.711393.3.579.2.014664-03-8379Bynunfj4876705 2.16.840.1.716444.3.579.2.252404-16-4063Luxubnx4907153 2.16.840.1.693619.3.579.2.761708-04-1606Rmbguka1674068 2..840.1.437515.3.579.2.095138-66-0230Mufiiqm5060943 2.16.840.1.017024.3.579.2.1259 [id number] 1960Self-pay Private Health YxqfxyljwGJCH9CJOBcfrfnsDU2URO 2.16.840.1.751726.19Unknown [id number] 2.840.1.848623.3.579.2.531 Social History DateTypeDetailFacilityStart: 07-01-2024 End: 90-98-4387Hbq [facility] by [facility] HealthStart: 07-27-2022 End: 19-57-0031Tujlpcz smoking status NHISEx-smokerSelect Medical Specialty Hospital [facility] SystemStart: 09-05-1975 End: 20-73-5778Zkgttrr of tobacco useCurrent smokerCritical access hospitaltart: 09-05-1975 End: 28-67-5993Kxmjuta of tobacco useCigarette SmokerSelect Medical Specialty Hospital [facility] System Start: 07-27-2022 End: 88-82-2974Yqpapte use and exposureSmokeless tobacco non-userSelect Medical Specialty Hospital - [facility] SystemStart: 08-14-2024 End: 10-84-6930Ncunbixqe beverage intakeEx-drinker (finding)[facility] SystemStart: 07-01-2024 End: 97-57-1226Atuffli of Social functionNOIN HealthcareStart: 35-97-6959Tyg assigned at birthNot on fileGUNNISON VALLEY HOSPITAL HealthcareStart: 87-76-5403Njqunk orientation Heterosexual (finding)[facility] HealthcareHow often do you need to have someone help you when you read instructions, pamphlets, or other written material from your doctor or pharmacy [SILS]NeverNOMS HealthcareDo you belong to any clubs or organizations such as [employer] groups, [employer]ic[employer], [employer] or athleUniversity of [place] groups, or school groups?NoNOMS HealthcareAre you now , , , , never or living with a partner?MarriedProJohn Paul Jones Hospital Health System How often to you have a drink containing alcohol?NeverProJohn Paul Jones Hospital Health SystemHow hard is it for you to pay for the very basics like food, housing, medical care, and heatingNot very hardProJohn Paul Jones Hospital Health SystemDo you feel stress - tense, restless, nervous, or anxious, or unable to sleep at night because yourmind is troubled all the time - these days [OSQ]To some extentZanesville City Hospital Health System (I/We) worried whether (my/our) food would run out before (I/we) got money to buy more.Sometimes trueNOMS HealthcareThe food that (I/we) bought just didn't last, and (I/we) didn't have money to get more.Never trueNOMS HealthcareDo you belong to any clubs or organizations such as [employer] groups, [employer], [employer] or athleUniversity of [place] groups, or school groups?YesProWood County Hospital SystemStart: 1960 Sex Assigned At BirthFeButler Memorial Hospital SystemStart: 75-03-5026Egmgwr identityIdentifies as female gender (finding)[facility] Health SystemHow hard is it for you to pay for the very basics like food, housing, medical care, and heatingSomewhat hardSelect Medical Specialty Hospital [facility] SystemStart: 09-18-2019 End: 26-31-8129BszGhtsdr (finding)[facility] smoking status NHISUnknown if ever smokedCleveland Clinic E[facility] Work Phone: Medical Equipment Procedure CodeEquipment CodeEquipment Original TextEquipment IdentifierDates End: 09-19-2024 Clinical Notes 07-27-2021 to 05-08-2025 Note Date & [id number] NoteOrthopedic Surgery Subjective Chief complaint: Chief Complaint Patient [...] tissues and underlying bone was debrided by document processing specialist. Patient is not currently on any [...] this point in ti (more content not included)...[facility]07-10-2025 History of Present illness Narrative* Rudolph Hurt MD - 03/14/2025 2:04 PM EDTAssociated Problem(s): Type I diabetes mellitus with polyneuropathy (HCC) Symptoms stable and use norco PRN. * Rudolph Hurt MD - 03/14/2025 2:04 PM EDTAssociated Problem(s): Type 1 diabetes mellitus with hyperglycemia (HCC) BS stable and follow with endo. * Rudolph Hurt MD - 03/14/2025 2:04 PM EDTAssociated Problem(s): Rheumatoid arthritis involving multiple sites with positive rheumatoid factor (HCC) Continued pain and deformity. Follow with rheum. * Rudolph Hurt MD - 03/14/2025 2:04 PM EDTAssociated Problem(s): POTS (postural orthostatic tachycardia syndrome) Symptoms stable and increase fluids. Follow with cardiology. * Rudolph Hurt MD - 03/14/2025 2:04 PM EDTAssociated Problem(s): MDD (major depressive disorder), recurrent episode, moderate (HCC) Symptoms worse and increase cymbalta to 90 mg daily. * Rudolph Hurt MD - 03/14/2025 2:03 PM EDTAssociated Problem(s): Coronary artery disease involving timbi-sha shoshone coronary artery of timbi-sha shoshone heart without angina pectoris Follow with cardiology. * Rudolph Hurt MD - 03/14/2025 1:30 PM EDT Images from the original note were not included. Subjective Patient ID: Monica Acosta is a 64 y.o. female who presents for Follow-up (3m f/up/Depression worse). Follow up depression, neuropathy, DM, RA, POTS, and CAD. Depression worse over the past few weeks. Down, sad, and no motivation. Not want to be around others. Garza and irritable. Snapping at others.Previously on 90 mg cymbalta but down to 60 mg and mood worse. Neuropathy stable and mild pain and burning in feet. Taking norco PRN and helps. DM controlled and following with endo. Seen by rheumatology and medication stable. Continued pain in multiple joints. Following with cardiology for CAD andstable. POTS stable and occasional heart racing. Review [...] Addressed This Visit Coronary artery disease involving timbi-sha shoshone coronary artery of timbi-sha shoshone heart without angina pectoris Follow with cardiology. Rheumatoid arthritis involving multiple sites with positive rheumatoid factor (HCC) Continued pain and deformity. Follow with rheum. Relevant Medications celecoxib (CeleBREX) 200 MG capsule HYDROcodone-acetaminophen ([place]) 5-325 MG tablet Type 1 diabetes mellitus [...] [address] capsule documented in this encounterChristian [id number] History of Present illness Narrative* Rudolph Hurt MD - 01/15/2025 12:34 PM EDTAssociated Problem(s): SOB (shortness of breath) on exertion Continued SOB and former smoker. Check PFTs and start albuterol PRN. * Rudolph Hurt MD - 01/15/2025 12:34 PM EDTAssociated Problem(s): Hypersomnia Signs of MARA and check sleep study. * Rudolph Hurt MD - 01/15/2025 12:34 PM EDTAssociated Problem(s): Coronary artery disease involving timbi-sha shoshone coronary artery of timbi-sha shoshone heart without angina pectoris (CMS/HCC) Check stress test and follow with cardiology. * Rudolph Hurt MD - 01/15/2025 12:33 PM EDTAssociated Problem(s): Chest pain at rest Developed pain with exertion and prior 3 vessel CABG. Check lexiscan cardiolyte stress test. Followwith cardiology. * Rudolph Hurt MD - 01/15/2025 11:45 AM EDT Images from the original note were not included. Subjective Patient ID: Monica Acosta is a 64 y.o. female who presents for Follow-up (Breathing trouble atnight low pulse ox). C/o SOB and chest tightness over the past few weeks. Developed SOB with exertion and severe fatiguewith exertion. Develops chest tightness and needs to [...] Addressed This Visit Coronary artery disease involving timbi-sha shoshone coronary artery of timbi-sha shoshone heart without angina pectoris (CMS/HCC) Check stress [...] Check lexiscan cardiolyte stress test. Followwith cardiology. Relevant Orders Stress test with myocardial perfusion documented in this encounterChristian [id number] History of Present illness Narrative* Zeyad Tate MD - 12/31/2024 2:10 PM EDT Monica Acosta is a 64 y.o. female Zeyad Tate MD presents with chief complaint of Diabetes and Follow-up HPI: History of Present Illness The patient is a 64-year-old female who presents for a follow-up of type 1 diabetes. She is currently using a Medtronic insulin pump with basal rates set at 0.95 units per hour from 12AM, 1.3 units per hour from 8 AM, 1.35 units per hour from 12 PM, and 1.1 units per hour from 10 PM. Her carbohydrate ratio ranges from 5.5 to 6.5, and she is on a carb ratio for 75. The plan is to switch her to a T- slim pump as she prefers it. IM: 08/2024 follow up 08/21 with a 01/2024 from type 1 diabetes. Basal rates at 12 a.m 0.95, 8 a.m., 1.3, 12 p.m1.45, 10 pm 1.2. ICR at 12 am [...] 0.85, 8 a.m., 1.1, 12 p.m 1.15, 10pm 0.8. ICR at 12 am 7, 9 [...] office 8.5, Basal 42%, bolus 58% , [id number], TDD 33. CGM 0-70-30, IM: 10/2022 follow up from type 1 diabetes. Basal rates at 12 a.m 1, 8 a.m., 1.2, 12 p.m 1. ICR at 12 am 7, 9 am 6.5, 5 PM 7. ISS 1:65. A1c in the office 8.0, Basal 56%, bolus 46% , avg 209, TDD 35. CGM 347-50.had depression IM: 04/2022 follow up from type [...] a.m., 01.3, 12 p.m 1.15; and 11 p.m.,1.3. ICR at 12 a.m., 8; 9 a.m., 6.5; and 5 p.m., 8.5. ISS 1:45. A1c in the office 7.8. had back surgery in [place] IM: 03/2020 follow up from type 1 diabetes. Basal rates at 12 a.m. 0.7; 8 a.m., 0.9; 12 p.m., 0.875; and 11 p.m., 0.95. ICR at 12 a.m., 8; 9 a.m., 6.5; and 5 p.m., 8.5. ISS 1:55. A1c in the office 7.8 IM: 12/[address] Zen Viera for type 1 diabetes. Basal rates at 12 a.m. 0.7; 8 a.m., 0.9; 12 p.m., 0.875; and 11 p.m., 0.95. ICR at 12 a.m., 8; 9 a.m., 6.5; and 5 p.m., 8.5. ISS 1:55. we saw her today with tele medicine with [facility]. HPI: 09/24 New patient sent from Dr. Zen Viera for type 1 diabetes. A1C in the [...] capsule 1 capsule, 3 times daily HYDROcodone-acetaminophen ([place]) 5-325 MG tablet 1 tablet, Oral, 4 [...] (BMI) 31.0-31.9, adult CAD (coronary artery disease) ([facility]) Current use of insulin ([facility]) Diabetes ([facility]) Dietary counseling and surveillance Encounter for fitting and adjustment of insulin pump Essential (primary) hypertension ([facility]) Fracture of right hand Heart problem High cholesterol ([facility]) History of open heart surgery HTN (hypertension) ([facility]) Hypertension ([facility]) half-way (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 ([facility]) Mixed hyperlipidemia ([facility]) Obesity, unspecified PAD (peripheral artery disease) ([facility]) Personal history of other medical treatment Triple Bypass POTS (postural orthostatic tachycardia syndrome) Presence of insulin pump (external) (internal) Rheumatoid arthritis ([facility]) Type 1 diabetes mellitus with other circulatory [...] recent change. No heart burn, liver or gallbladderdisease; no rectal bleeding or pain : No urinary pain , frequency or odor. MUSCULOSKELETAL: No muscle pain or cramps; no extremity weakness.No joint pain, stiffness, swellingor limitation of movement NEUROLOGY: No H/O seizures, [...] (CMS/HCC) Presence of insulin pump (external) (internal) half-way (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 (CMS/HCC) Encounter for [...] visit: No Eye exam current: Yes Sees medical data analyst: Yes documented in this encounterChristian [id number] Telephone encounter Note* Telephone Encounter - Rudolph Hurt MD - 12/27/2024 4:40 PM EDT [facility] [id number] Miscellaneous Notes* Telephone Encounter - Rudolph Hurt MD - 12/27/2024 4:40 PM EDT documented in this encounterChristian [id number] History of Present illness Narrative* Rudolph Hurt MD - 12/10/2024 2:54 PM EDTAssociated Problem(s): Type I diabetes mellitus with polyneuropathy (CMS/HCC) Symptoms stable and continue neurontin. * Rudolph Hurt MD - 12/10/2024 2:54 PM EDTAssociated Problem(s): Type 1 diabetes mellitus with hyperglycemia (HCC) (CMS/HCC) BS stable and follow with endo. * Rudolph Hurt MD - 12/10/2024 2:54 PM EDTAssociated Problem(s): Rheumatoid arthritis involving multiple sites with positive rheumatoid factor (CMS/HCC) Continued pain and deformity. Follow with rheum. * Rudolph Hurt MD - 12/10/2024 2:54 PM EDTAssociated Problem(s): POTS (postural orthostatic tachycardia syndrome) Occasional symptoms and increase fluids. Continue atenolol. * Rudolph Hurt MD - 12/10/2024 2:53 PM EDTAssociated Problem(s): Hypersomnia Signs of MARA and check sleep study. * Rudolph Hurt MD - 12/10/2024 2:53 PM EDTAssociated Problem(s): Coronary artery disease involving timbi-sha shoshone coronary artery of timbi-sha shoshone heart without angina pectoris (CMS/HCC) Feels worse and follow up with cardiology. * Rudolph Hurt MD - 12/10/2024 2:15 PM EDT Images from the original note were not [...] Addressed This Visit Coronary artery disease involving timbi-sha shoshone coronary artery of timbi-sha shoshone heart without angina pectoris (CMS/HCC) Feels worse [...] and check sleep study. 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 (CMS/[facility]) Presence of insulin pump (external) (internal) Type 1 diabetes mellitus with other circulatory complications ([facility]/HCC) Type 1 diabetes mellitus with hyperglycemia ([facility]) Vitamin D deficiency, unspecified Family History Problem Relation Name Age of Onset Anesthesia problems Mother Nina Mcintyre Broken bones Mother Nina Mcintyre Osteoporosis Mother Nina Mcintyre Broken bones Father Ilana Marquez Stroke Father [...] bypass graft surgery in 2014 performed in [place] [no report available]. She has POTS postural [...] Morphine Other Other Reaction(s): (more content not included)...[facility]03-17-2025 History of Present illness Narrative* Collin Saba MD - 11/19/2024 2:15 PM EDT Images from the original note were not included. [address] [id number] Date of Service: 11/19/2024 Subjective: Monica Acosta [...] past medical history, past social history, past surgicalhistory and problem list. Review of Systems: Review [...] total) by mouth in the morning. 100 tablet3 BABY ASPIRIN ORAL Take 81 mg by [...] total) by mouth 3 (three) times a day.90 capsule 2 HYDROcodone-acetaminophen (NORCO) 7.5-325 mg per [...] chest pain 25 tablet 1 blood-glucose meter (MyEduUCH VERIO REFLECT METER) misc use as directed [...] total) before bedtime. 60 tablet 2 lancets (AcronisTOUCH DELICA PLUS LANCET) 33 gauge misc TEST [...] the homunculus. Go to the Rheumatology activity andcomplete the homunculus joint exam. BUSTILLOS-28 (CRP): -- [...] multiple sites, unspecified whether rheumatoid factor present ([facility]) - Vitamin D 25 [...] with longstanding nodule rheumatoid with deformities who hasnot been on treatment for many, she was [...] or corrected. Thank you for your understanding. [facility] Dr. Collin Saba MD [address] [place] [address], [address] [place] [address] Office: [phone] documented in this encounterSuburban Community Hospital [facility] NoteOrthopedic Surgery Subjective Chief complaint: Chief Complaint Patient [...] Medical History: Diagnosis Date Acute coronary syndrome ([facility]) 05/21/2022 Arthritis CKD (chronic kidney disease), stage II Coronary artery disease 12/26/2009 Deep vein thrombosis (DVT) ([facility]) 08/16/2019 Diabetes mellitus ([facility]) Heart disease [id number] Hypertension 01/08/1996 Hypotension POTS (postural orthostatic tachycardia syndrome) Spinal stenosis 2022 Objective General: Body mass index is 29.44 kg/m???. No acute distress, comfortable Respiratory: Unlabored breathing with normal rate, no cough (more content not included)...[facility]01-15-2025 History of Present illness Narrative* Rudolph Hurt MD - 09/19/2024 12:14 PM ESTAssociated Problem(s): Type I diabetes mellitus with polyneuropathy (CMS/HCC) Symptoms stable and continue neurontin. * Rudolph Hurt MD - 09/19/2024 12:14 PM ESTAssociated Problem(s): Type 1 diabetes mellitus with other circulatory complications (CMS/HCC) Follow with vascular. * Rudolph Hurt MD - 09/19/2024 12:14 PM ESTAssociated Problem(s): Type 1 diabetes mellitus with hyperglycemia (HCC) (CMS/HCC) BS stable and follow with endo. * Rudolph Hurt MD - 09/19/2024 12:08 PM ESTAssociated Problem(s): Rheumatoid arthritis involving multiple sites with positive rheumatoid factor (CMS/HCC) Continued pain and deformity. Check labs and refer to rheumatology. Resume methotrexate and folic acid. Resume norco. Discussed risks and benefits of opiate therapy. Warned medication is narcotic andrisk of addiction. OARRS reviewed. * Rudolph Hurt MD - 09/19/2024 12:07 PM ESTAssociated Problem(s): POTS (postural orthostatic tachycardia syndrome) Occasional symptoms and increase fluids. Continue atenolol. * Rudolph Hurt MD - 09/19/2024 12:07 PM ESTAssociated Problem(s): PAD (peripheral artery disease) (CMS/HCC) Not lightheaded and monitor. Return to vascular. * Rudolph Hurt MD - 09/19/2024 12:07 PM ESTAssociated Problem(s): Coronary artery disease involving timbi-sha shoshone coronary artery of timbi-sha shoshone heart without angina pectoris ([facility]) No pain and continue medication. Recommend return to cardiology. * Rudolph Hurt MD - 09/19/2024 11:30 AM EST Images from the original note were not [...] feet. History of PAD and seen by vascular.Monitoring carotids. Prior CAD with stents but no evaluation for several years. Taking medication daily. Previously diagnosed with POTS. Still occasional low BP and lightheaded when up and moving. Onatenolol and doesn't notice heart racing. Review of [...] Return to vascular. Coronary artery disease involving timbi-sha shoshone coronary artery of timbi-sha shoshone heart without angina pectoris (CMS/HCC) No pain and continue medication. Recommend return to cardiology. Rheumatoid arthritis involving multiple sites with positive rheumatoid factor (CMS/HCC) - Primary Continued pain and deformity. Check labs and refer to rheumatology. Resume methotrexate and folic acid. Resume norco. Discussed risks and benefits of opiate therapy. Warned medication is narcotic andrisk of addiction. OARRS reviewed. Relevant Medications folic acid (Folvite) 1 MG tablet methotrexate 2.5 MG tablet HYDROcodone-acetaminophen ([place]) 5-325 MG tablet Other Relevant Orders Rheumatoid [...] differential Hepatic function panel documented in this encounterChristian [id number] History of Present illness Narrative* Zeyad Tate MD - 08/21/2024 1:20 PM EST Monica Acosta is a 63 y.o. female Zeyad Tate MD presents with chief complaint of Diabetes Mellitus and Follow-up HPI: IM: 08/2024 follow up 08/21 with a 01/2024 from type 1 diabetes. Basal rates at 12 a.m 0.95, 8 a.m., 1.3, 12 p.m1.45, 10 pm 1.2. ICR at 12 am [...] 0.85, 8 a.m., 1.1, 12 p.m 1.15, 10pm 0.8. ICR at 12 am 7, 9 [...] office 8.5, Basal 42%, bolus 58% , [id number], TDD 33. CGM 0-70-30, IM: 10/2022 follow up from type 1 diabetes. Basal rates at 12 a.m 1, 8 a.m., 1.2, 12 p.m 1. ICR at 12 am 7, 9 am 6.5, 5 PM 7. ISS 1:65. A1c in the office 8.0, Basal 56%, bolus 46% , avg 209, TDD 35. CGM 3-47-50.had depression IM: 04/2022 follow up from type [...] a.m., 01.3, 12 p.m 1.15; and 11 p.m.,1.3. ICR at 12 a.m., 8; 9 a.m., 6.5; and 5 p.m., 8.5. ISS 1:45. A1c in the office 7.8. had back surgery in [place] IM: 03/2020 follow up from type 1 diabetes. Basal rates at 12 a.m. 0.7; 8 a.m., 0.9; 12 p.m., 0.875; and 11 p.m., 0.95. ICR at 12 a.m., 8; 9 a.m., 6.5; and 5 p.m., 8.5. ISS 1:55. A1c in the office 7.8 IM: 12/[address] Zen Viera for type 1 diabetes. Basal rates at 12 a.m. 0.7; 8 a.m., 0.9; 12 p.m., 0.875; and 11 p.m., 0.95. ICR at 12 a.m., 8; 9 a.m., 6.5; and 5 p.m., 8.5. ISS 1:55. we saw her today with tele medicine with [facility]. HPI: 09/24 New patient sent from Dr. Zen Viera for type 1 diabetes. A1C in the [...] D-3) 1,000 Units, Oral, Daily Continuous Glucose Oracle Consultant (ThingMagicStyle Tru 14 Day [place]) device Does not apply Continuous Glucose Sensor [...] Other, As needed, Use as instructed HYDROcodone-acetaminophen ([place]) 5-325 MG tablet No dose, route, or [...] (BMI) 31.0-31.9, adult CAD (coronary artery disease) ([facility]) Current use of insulin ([facility]) Diabetes ([facility]) Dietary counseling and surveillance Encounter for fitting and adjustment of insulin pump Essential (primary) hypertension ([facility]) Fracture of right hand Heart problem High cholesterol ([facility]) History of open heart surgery HTN (hypertension) ([facility]) Hypertension ([facility]) half-way (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 ([facility]) Mixed hyperlipidemia ([facility]) Obesity, unspecified PAD (peripheral artery disease) ([facility]) Personal history of other medical treatment Triple Bypass POTS (postural orthostatic tachycardia syndrome) Presence of insulin pump (external) (internal) Rheumatoid arthritis ([facility]) Type 1 diabetes mellitus with other circulatory complications ([facility]) Vitamin D deficiency, unspecified Past Surgical History: [...] recent change. No heart burn, liver or gallbladderdisease; no rectal bleeding or pain : No urinary pain , frequency or odor. 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 documented in this encounterChristian [id number] NoteOrthopedic Surgery Subjective Chief complaint: Chief Complaint Patient [...] Medical History: Diagnosis Date Acute coronary syndrome ([facility]) 05/21/2022 Arthritis CKD (chronic kidney disease), stage II Coronary artery disease 12/26/2009 Deep vein thrombosis (DVT) ([facility]) 08/16/2019 Diabetes mellitus ([facility]) Heart disease [id number] Hypertension 01/08/1996 Hypotension POTS (postural orthostatic tachycardia [...] reviewed, demonstrating stable a (more content not included)...[facility] 07-09-2024 NoteOrthopedic Surgery Subjective Chief complaint: Chief Complaint Patient [...] Medical History: Diagnosis Date Acute coronary syndrome (CMS/HCC) 05/21/2022 Arthritis CKD (chronic kidney disease), stage II Coronary artery disease 12/26/2009 Deep vein thrombosis (DVT) ([facility]) 08/16/2019 Diabetes mellitus ([facility]) Heart disease [id number] Hypertension 01/08/1996 Hypotension POTS (postural orthostatic tachycardia [...] left, closed, init (more content not included)... [facility]10-07-2024 NoteOrthopedic Surgery Subjective Chief complaint: Chief Complaint Patient [...] Medical History: Diagnosis Date Acute coronary syndrome ([facility]) 05/21/2022 Arthritis CKD (chronic kidney disease), stage II Coronary artery disease 12/26/2009 Deep vein thrombosis (DVT) ([facility]) 08/16/2019 Diabetes mellitus ([facility]) Heart disease [id number] Hypertension 01/08/1996 Hypotension POTS (postural orthostatic tachycardia [...] By using the atte (more content not included)...[facility]09-09-2024 NoteOrthopedic Surgery Subjective Chief complaint: Chief Complaint Patient [...] Medical History: Diagnosis Date Acute coronary syndrome ([facility]) 05/21/2022 Arthritis CKD (chronic kidney disease), stage II Coronary artery disease 12/26/2009 Deep vein thrombosis (DVT) ([facility]) 08/16/2019 Diabetes mellitus ([facility]) Heart disease [id number] Hypertension 01/08/1996 Hypotension POTS (postural orthostatic tachycardia [...] MD MRCSEd Associate Pr (more content not included)...[facility] 04-30-2024 Miscellaneous Notes* Telephone Encounter - Ana EdwardsCAMERON - 04/30/2024 8:59 AM EDT Patient is at [facility] she fell and broke both legs and will be transferring to the [facility] for rehab documented in this encounterSuburban [facility] Telephone encounter Note* Telephone Encounter - Ana Edwards CMA - 04/30/2024 8:59 AM EDT Patient is at [facility] she fell and broke both legs and will be transferring to the [facility] for rehab [facility] History of Present illness Narrative* Zen Viera, - 04/13/2024 11:30 AM EDT Subjective Patient ID: Monica Acosta is a [...] rheumatoid arthritis pain. She was seeing a steno pool supervisor in [place] prior to coming to [place] and was referred to Rheumatology here but [...] past medical history, past social history, past surgicalhistory, problem list, and medication reconciliation was completed including current medication andpost discharge medication. Review of Systems Constitutional: Negative. Musculoskeletal: Positive for arthralgias, back pain, joint swelling and myalgias. Neurological: Negative. Objective Physical Exam Vitals reviewed. Exam conducted with a tunneller present. Constitutional: General: She is not in [...] tenderness and deformity (Ulnar deviation of multiple fingers)present. Cervical back: Neck supple. Lymphadenopathy: Cervical: No [...] multiple sites, unspecified whether rheumatoid factor present ([facility]) - [facility] - [place], [place]; Future Refer back to Rheumatology. Importance of modifying disease progression discussed. Stay on Celebrexfor now since she has stage 2 chronic kidney disease. 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 ([facility]) - Basic Metabolic Panel; Future Recheck BMP to recheck potassium. She has stage 2 chronic kidney disease with microalbuminuria Diabetic polyneuropathy associated with type 1 diabetes mellitus ([facility]) - gabapentin (NEURONTIN) 100 [...] mouth in the morning. documented in this encounterSuburban Community Hospital [facility]07-26-2024 Miscellaneous Notes* Telephone Encounter - Ana Edwards CMA - 03/30/2024 11:48 AM EDT Patient is very upset and would like to ask you some questions like what stage her kidneys are in. She stated if you can call her when you are done with patients today that would be great. documented in this encounterSuburban Community Hospital & [facility]07-26-2024 Telephone encounter Note* Telephone Encounter - Ana Edwards CMA - 03/30/2024 11:48 AM EDT Patient is very upset and would like to ask you some questions like what stage her kidneys are in. She stated if you can call her when you are done with patients today that would be great. [facility]07-25-2024 Miscellaneous Notes* Telephone Encounter - Kaylin Fitch - 03/29/2024 11:25 AM EDT Patient called and she is complaining about her drug screen and norco, she said she takes it every day and now she is out. I dont know what you would like to do * Telephone Encounter - Zen Viera DO - 03/29/2024 11:25 AM EDT I sent in few more and then we need to discuss different treatment options * Telephone Encounter - Kaylin Fitch - 03/29/2024 11:25 AM EDT Notified and appointment scheduled documented [facility] Telephone encounter Note* Telephone Encounter - Kaylin Fitch - 03/29/2024 11:25 AM EDT Patient called and she is complaining about her drug screen and norco, she said she takes it every day and now she is out. I dont know what you would like to do [facility]07-25-2024 Telephone encounter Note* Telephone Encounter - Zen Viera DO - 03/29/2024 11:25 AM EDT I sent in few more and then we need to discuss different treatment options [facility]07-25-2024 Telephone encounter Note* Telephone Encounter - Kaylin Fitch - 03/29/2024 11:25 AM EDT Notified and appointment scheduled [facility]07-23-2024 History of Present illness Narrative* Zen Viera DO - 03/27/2024 7:30 AM EDT Urine specimen obtained for drug screen [facility] History of Present illness Narrative* Zen Viera DO - 03/26/2024 1:30 PM EDT Images from the original note were not [...] witnessed apnea or headaches. She sees the digital x ray service engineer as week for type 1 diabetes. The following portions of the patient's history were reviewed and updated as appropriate: allergies, current medications, past family history, past medical history, past social history, past surgicalhistory, problem list, and medication reconciliation was completed including current medication andpost discharge medication. Review of Systems Objective Physical [...] risk medication with benefit. Check urine for drugsof abuse and presence of medication. She will try to cut back to 1 a day on the hydrocodone since her shoulder and neck are feeling better. Rheumatoid arthritis involving multiple sites, unspecified whether rheumatoid factor present ([facility]) As above. Other fatigue - CBC; Future Check CBC. [place] sleep scale showed normal risk. She was moderate risk with STOPBANG scale. May need further workup Medication monitoring encounter - Drug Screen, Urine; Future Check urine for drugs of abuse. Primary hypertension - Comprehensive metabolic panel; Future Check CMP. Blood pressure at goal. Type 1 diabetes mellitus with diabetic polyneuropathy ([facility]) - Microalbumin - Albumin: Creatinine Urine Ratio; Future Check ACR. Overweight She is overweight. She would benefit from weight loss. Diet exercise and weight loss discussed. Notreally able to exercise much due to rheumatoid arthritis [facility] History of Present illness Narrative* Zen Viera DO - 02/09/2024 4:15 PM EDT Images from the original note were not included. Subjective Patient ID: Monica Acosta is a 63 y.o. female. She was at [employer] watching [employer] play T-ball and her son put down her chair and itwas uneven and she fell backwards in her chair. She hit her head on the ground. She has a concussion. She did not lose consciousness. She did not get up right away. She laid there and people called the squad and told her not to move since she landed on her head and neck. She is nauseated, even moredizzy than usual. The back of her head hurts. She also some how hurt her knee when she tried to doa somersault . The knee pain is gone now. She also hurt her right shoulder but it hurts now more inthe muscle by the neck and shoulder. She has trouble lifting her arm above the level of her head. She did drive herself to the office today. Follow-up Associated symptoms include arthralgias and headaches. The following portions of the patient's history were reviewed and updated as appropriate: allergies, current medications, past family history, past medical history, past social history, past surgicalhistory, problem list, and medication reconciliation was completed including current medication andpost discharge medication. Review of Systems Constitutional: Negative. [...] should avoid electronics, loud noises and excessive stimulation.Rest frequently. When he came into the room [...] spasms. Strain of right shoulder, initial encounter [id number] exercises given. Risk of frozen shoulder discussed. She defers physical therapy. Medications as above. Overweight She is overweight. It is contributing to diabetes. She would benefit from weight loss Contusion of left knee, initial encounter Resolved documented in [facility] Miscellaneous Notes* Telephone Encounter - Kaylinalfa Fitch - 02/07/2024 8:48 AM EDT ----- Message from BECCA Cordero sent at 12/05/2023 1:22 PM EDT ----- Regarding: controlled substance Due late February, early March for RA * Telephone Encounter - Kaylin Fitch - 02/07/2024 8:48 AM EDT Sent myceliat msg documented in this [facility] Telephone encounter Note* Telephone Encounter - Kaylin Fitch - 02/07/2024 8:48 AM EDT ----- Message from BECCA Cordero sent at 12/05/2023 1:22 PM EDT ----- Regarding: controlled substance Due late February, early March for RA [facility]06-04-2024 Telephone encounter Note* Telephone Encounter - Kaylin Fitch - 02/07/2024 8:48 AM EDT Sent mychart msg [facility]05-24-2024 History of Present illness Narrative* Zen Viera DO - 01/27/2024 9:57 AM EDT The OARRS/MAPPS database was reviewed today and found to be appropriate. No indication of medication diversion, or non compliance. documented in this [facility] History of Present illness Narrative* Demetra Porter, [employer] [facility]-PLASTER WHITTLER - 12/05/2023 1:00 PM EDT .Subjective Patient ID: Monica Acosta is a 62 y.o. female. 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 Review of Systems Constitutional: Positive [...] multiple sites, unspecified whether rheumatoid factor present ([facility]) - HYDROcodone-acetaminophen (NORCO) 7.5-325 mg per tablet; Take 1 tablet by mouth 2 (two) times a day as needed for pain. Status post partial amputation of left foot ([facility]) Diabetic polyneuropathy associated with type 2 diabetes mellitus ([facility]) - TSH; Future Severe depression ([facility]) PAD (peripheral artery disease) ([facility]) Compression fracture of L1 vertebra with routine healing, subsequent encounter Mixed hyperlipidemia - Lipid panel; Future The hydrocodone is reviewed, it is easing her pain and allowing her to participate in her ADLs and other activities that are limited mostly by her RA, but also by her more recent compression fracturethat still causes her some distress as well as her neuropathy and to a lesser extent her PAD- as these are chronic conditions and as using this twice daily does improve her mobility with provide her with quantity sufficient to use twice daily She is due also for her lipid check and her yearly thyroid check, the other labs she has checked Henrik [place] and she knows to reschedule her [...] of medication diversion, or non compliance. Demetra Porter, [employer] WH[employer]ER 04/01/24 1329 documented in this [facility]03-26-2024 History of Present illness Narrative* Demetra PorterJAYN-PLASTER WHITTLER - 11/29/2023 7:44 AM EDT The OARRS/MAPPS database was reviewed today and found to be appropriate. No indication of medication diversion, or non compliance. Demetra PorterJAYN-PLASTER WHITTLER 11/29/23 0745 documented in this [facility]03-12-2024 History of Present illness Narrative* Demetra PorterTWYLA-PLASTER WHITTLER - 11/15/2023 7:58 AM EDT The OARRS/MAPPS database was reviewed today and found to be appropriate. No indication of medication diversion, or non compliance. Demetra Porter, TWYLA-PLASTER WHITTLER 11/15/23 0759 documented in this [facility]02-11-2024 Miscellaneous Notes* Telephone Encounter - Zen Viera DO - 10/16/2023 1:35 PM EST She has requesting a refill of her controlled substance but she is overdue for an appointment. She needs to set 1 up as soon as possible documented in this [facility]02-11-2024 Telephone encounter Note* Telephone Encounter - Zen Viera DO - 10/16/2023 1:35 PM EST She has requesting a refill of her controlled substance but she is overdue for an appointment. She needs to set 1 up as soon as possible [facility]01-30-2024 Miscellaneous Notes* Telephone Encounter - Zen Cornejogabrielkaty - 10/04/2023 8:44 PM EST Rx sent in. She is due for a controlled substance recheck next week documented in [facility] Telephone encounter Note* Telephone Encounter - Zen Cornejothao - 10/04/2023 8:44 PM EST Rx sent in. She is due for a controlled substance recheck next week [facility]11-22-2021 Evaluation note* Encounter Date Diagnosis Assessment Notes Treatment Notes Treatment Clinical Notes Jul, Contact with and (kennedy spected) exposure to other viral communicable diseases (ICD-10 - Z20.828) Jul,OVID-19 (ICD-10 - U07.1) Rapid COVID test performed [...] treatment plan. Patient left in stable condition Jul,OtherAdditional time spent conducting pre-visit phone call, screening for symptoms, instructions on social distancing, application and removal of PPE, and cleaning of examination room, equipment and supplies was preformed. Patient education given for testing methodology and results. Patient care instructions given in writting by [facility] At Home document Das[place] Other Evaluation note* Diagnosis Type 1 diabetes mellitus with hyperglycemia (HCC) ([facility])- Primary Essential (primary) hypertension ([facility]) Unspecified essential hypertension Vitamin D deficiency, unspecified Dietary counseling and surveillance Mixed hyperlipidemia ([facility]) Mixed hyperlipidemia Presence of insulin pump (external) (internal) 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 ([facility]) Encounter for fitting or adjustment of insulin pump Fitting and adjustment of insulin pump documented in this encounter [facility] HealthcareEvaluation note* Diagnosis Rheumatoid arthritis involving multiple sites with positive rheumatoid factor ([facility])- Primary Type I diabetes mellitus with polyneuropathy ([facility]) Coronary artery disease involving [place] coronary artery of [place]one heart without angina pectoris ([facility]) PAD (peripheral artery disease) ([facility]) Unspecified peripheral vascular disease POTS (postural orthostatic tachycardia syndrome) Unspecified tachycardia Type 1 diabetes mellitus with other circulatory complications ([facility]) Type 1 diabetes mellitus with hyperglycemia (HCC) ([facility]) Encounter for long-term (current) use of medications Encounter for long-term (current) use of other medications Dyslipidemia ([facility]) Other 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 hyperlipidemia half-way (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 ([facility]) documented in this encounter [facility] HealthcareEvaluation note* Diagnosis Compression fracture of L1 vertebra with routine healing, subsequent encounter documented in this encounter [facility] System[facility]* Diagnosis Rheumatoid arthritis involving multiple sites with positive rheumatoid factor ([facility])- Primary Type I diabetes mellitus with polyneuropathy ([facility]) Coronary artery disease involving [place] coronary artery of [place] heart without angina pectoris ([facility]) PAD (peripheral artery disease) ([facility]) Unspecified peripheral vascular disease POTS (postural orthostatic tachycardia syndrome) Unspecified tachycardia Type 1 diabetes mellitus with other circulatory complications ([facility]/HCC) Type 1 diabetes mellitus with hyperglycemia (HCC) ([facility]) Encounter for long-term (current) use of medications Encounter for long-term (current) use of other medications Dyslipidemia ([facility]) Other 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 hyperlipidemia half-way (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 (CMS/HCC) Rheumatoid arthritis involving multiple sites with positive rheumatoid factor ([facility]) documented in this encounter [facility] HealthcareEvaluation note* Diagnosis Concussion without loss of consciousness, initial encounter- Primary Strain of neck muscle, initial encounter Strain of right shoulder, initial encounter Overweight Contusion of left knee, initial encounter [facility]* Diagnosis Rheumatoid arthritis involving multiple sites, unspecified whether rheumatoid factor present ([facility]) [facility]* Diagnosis Compression fracture of L1 vertebra with routine healing, subsequent encounter [facility]* Diagnosis Compression fracture of L1 vertebra with routine healing, subsequent encounter [facility]* Diagnosis Compression fracture of L1 vertebra, sequela- Primary Rheumatoid arthritis involving multiple sites, unspecified whether rheumatoid factor present ([facility]) Other fatigue Medication monitoring encounter Encounter for therapeutic drug monitoring Primary hypertension Unspecified essential hypertension Type 1 diabetes mellitus with diabetic polyneuropathy ([facility]) Overweight documented in this encounter [facility] SystemEvaluation note* Diagnosis Rheumatoid arthritis involving multiple sites, unspecified whether rheumatoid factor present ([facility]) documented in this encounter [facility] SystemEvaluation note* Diagnosis Medication monitoring encounter- Primary Encounter for therapeutic drug monitoring Compression fracture of L1 vertebra, sequela Rheumatoid arthritis involving multiple sites, unspecified whether rheumatoid factor present ([facility]) documented in this encounter [facility] SystemEvaluation note* Diagnosis Rheumatoid arthritis involving multiple sites, unspecified whether rheumatoid factor present ([facility])- Primary Status post partial amputation of left foot ([facility]) Diabetic polyneuropathy associated with type 2 diabetes mellitus ([facility]) Severe depression ([facility]) Depressive disorder, not elsewhere classified PAD (peripheral artery disease) ([facility]) Unspecified peripheral vascular disease Compression fracture of L1 vertebra with routine healing, subsequent encounter Mixed hyperlipidemia documented in this encounter [facility] SystemEvaluation note* Diagnosis Stage 2 chronic kidney disease due to type 1 diabetes mellitus ([facility])- Primary Rheumatoid arthritis involving multiple sites, unspecified whether rheumatoid factor present ([facility]) 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 ([facility]) Diabetic polyneuropathy associated with type 1 diabetes mellitus ([facility]) Hyperkalemia Hyperpotassemia Compression fracture of L1 vertebra, sequela documented in this encounter [facility] SystemEvaluation note* Diagnosis Rheumatoid arthritis involving multiple sites with positive rheumatoid factor (CMS/HCC)- Primary Type I diabetes mellitus with polyneuropathy (CMS/HCC) Coronary artery disease involving [place] coronary artery of [place] heart without angina pectoris (CMS/HCC) PAD (peripheral artery disease) (CMS/HCC) Unspecified peripheral vascular disease POTS (postural orthostatic tachycardia syndrome) Unspecified tachycardia Type 1 diabetes mellitus with other circulatory complications (CMS/HCC) Type 1 diabetes mellitus with hyperglycemia (HCC) ([facility]) Encounter for long-term (current) use of medications Encounter for long-term (current) use of other medications Dyslipidemia (CMS/HCC) Other 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 hyperlipidemia half-way (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 ([facility]) Rheumatoid arthritis involving multiple sites with positive rheumatoid factor ([facility]) documented in this encounter [facility] HealthcareEvaluation note* Diagnosis Rheumatoid arthritis involving multiple sites, unspecified whether rheumatoid factor present ([facility])- Primary Long-term use of [place] Long-term use of leflunomide therapy documented in this encounter [facility] SystemEvaluation note* Diagnosis Rheumatoid arthritis involving multiple sites with positive rheumatoid factor (CMS/HCC)- Primary Type I diabetes mellitus with polyneuropathy (CMS/HCC) Coronary artery disease involving [place] coronary artery of [place] heart without angina pectoris (CMS/HCC) PAD (peripheral artery disease) ([facility]/HCC) Unspecified peripheral vascular disease POTS (postural orthostatic tachycardia syndrome) Unspecified tachycardia Type 1 diabetes mellitus with other circulatory complications Type 1 diabetes mellitus with hyperglycemia (HCC) ([facility]) Encounter for long-term (current) use of medications Encounter for long-term (current) use of other medications Dyslipidemia (CMS/HCC) Other 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 hyperlipidemia half-way (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 ([facility]CC) Rheumatoid arthritis involving multiple sites with positive rheumatoid factor ([facility]/HCC) documented in this encounter [facility] HealthcareEvaluation noteNo assessment information availableMer[facility] Work Phone: Evaluation note* Diagnosis Rheumatoid arthritis involving multiple sites with positive rheumatoid factor (CMS/HCC)- Primary Type I diabetes mellitus with polyneuropathy (CMS/HCC) Coronary artery disease involving [place] coronary artery of [place] heart without angina pectoris (CMS/HCC) PAD (peripheral artery disease) ([facility]/HCC) Unspecified peripheral vascular disease POTS (postural orthostatic tachycardia syndrome) Unspecified tachycardia Type 1 diabetes mellitus with other circulatory complications Type 1 diabetes mellitus with hyperglycemia (HCC) ([facility]) Encounter for long-term (current) use of medications Encounter for long-term (current) use of other medications Dyslipidemia ([facility]) Other 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 hyperlipidemia 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 ([facility]) Type I diabetes mellitus with polyneuropathy ([facility])- Primary Type 1 diabetes mellitus with hyperglycemia (HCC) ([facility]) POTS (postural orthostatic tachycardia syndrome) Unspecified tachycardia Rheumatoid arthritis involving multiple sites with positive rheumatoid factor ([facility]) Coronary artery disease involving [place] coronary artery of [place] heart without angina pectoris ([facility]) Hypersomnia Hypersomnia, unspecified documented in this encounter [facility] HealthcareEvaluation note* Diagnosis Rheumatoid arthritis involving multiple sites with positive rheumatoid factor ([facility])- Primary Type I diabetes mellitus with polyneuropathy ([facility]) Coronary artery disease involving [place] coronary artery of [place] heart without angina pectoris ([facility]) PAD (peripheral artery disease) ([facility]) Unspecified peripheral vascular disease POTS (postural orthostatic tachycardia syndrome) Unspecified tachycardia Type 1 diabetes mellitus with other circulatory complications Type 1 diabetes mellitus with hyperglycemia (HCC) ([facility]) Encounter for long-term (current) use of medications Encounter for long-term (current) use of other medications Dyslipidemia [facility] [facility]) Other 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 hyperlipidemia 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 ([facility] Type I diabetes mellitus with polyneuropathy ([facility])- Primary Type 1 diabetes mellitus with hyperglycemia (HCC) ([facility]) POTS (postural orthostatic tachycardia syndrome) Unspecified tachycardia Rheumatoid arthritis involving multiple sites with positive rheumatoid factor ([facility]) Coronary artery disease involving timbi-sha shoshone coronary artery of timbi-sha shoshone heart without angina pectoris ([facility]) Hypersomnia Hypersomnia, unspecified Rheumatoid arthritis involving multiple sites with positive rheumatoid factor ([facility]) documented in this encounter [facility]* Diagnosis Rheumatoid arthritis involving multiple sites with positive rheumatoid factor ([facility])- Primary Type I diabetes mellitus with polyneuropathy ([facility]) Coronary artery disease involving timbi-sha shoshone coronary artery of tim[place]-sha shoshone heart without angina pectoris ([facility]) PAD (peripheral artery disease) ([facility]) Unspecified peripheral vascular disease POTS (postural orthostatic tachycardia syndrome) Unspecified tachycardia Type 1 diabetes mellitus with other circulatory complications Type 1 diabetes mellitus with hyperglycemia (HCC) ([facility]) Encounter for long-term (current) use of medications Encounter for long-term (current) use of other medications Dyslipidemia ([facility]/HCC) Other 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 hyperlipidemia half-way (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 ([facility]) Type I diabetes mellitus with polyneuropathy ([facility])- Primary Type 1 diabetes mellitus with hyperglycemia (HCC) ([facility]) POTS (postural orthostatic tachycardia syndrome) Unspecified tachycardia Rheumatoid arthritis involving multiple sites with positive rheumatoid factor ([facility]) Coronary artery disease involving timbi-sha shoshone coronary artery of tim[place]-sha shoshone heart without angina pectoris ([facility]) Hypersomnia Hypersomnia, unspecified Type 1 diabetes mellitus with hyperglycemia (HCC) ([facility])- Primary Essential (primary) hypertension ([facility]) Unspecified essential hypertension Vitamin D deficiency, unspecified Dietary counseling and surveillance Mixed hyperlipidemia ([facility]) Mixed hyperlipidemia Presence of insulin pump (external) (internal) 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 ([facility]) Encounter for fitting or adjustment of insulin pump Fitting and adjustment of insulin pump documented in this encounter [facility] HealthcareEvaluation note* Diagnosis Rheumatoid arthritis involving multiple sites with positive rheumatoid factor ([facility])- Primary Type I diabetes mellitus with polyneuropathy ([facility]) Coronary artery disease involving timbi-sha shoshone coronary artery of timbi-sha shoshone heart without angina pectoris ([facility]) PAD (peripheral artery disease) ([facility]) Unspecified peripheral vascular disease POTS (postural orthostatic tachycardia syndrome) Unspecified tachycardia Type 1 diabetes mellitus with other circulatory complications Type 1 diabetes mellitus with hyperglycemia (HCC) ([facility]) Encounter for long-term (current) use of medications Encounter for long-term (current) use of other medications Dyslipidemia ([facility]/HCC) Other 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 hyperlipidemia 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 ([facility]) Type I diabetes mellitus with polyneuropathy ([facility])- Primary Type 1 diabetes mellitus with hyperglycemia (HCC) ([facility]) POTS (postural orthostatic tachycardia syndrome) Unspecified tachycardia Rheumatoid arthritis involving multiple sites with positive rheumatoid factor ([facility]) Coronary artery disease involving timbi-sha shoshone coronary artery of tim[place]-sha shoshone heart without angina pectoris ([facility]) Hypersomnia Hypersomnia, unspecified Chest pain at rest- Primary Unspecified chest pain SOB (shortness of breath) on exertion Shortness of breath Coronary artery disease involving timbi-[place] shoshone coronary artery of timbi-sha shoshone heart without angina pectoris ([facility]) Hypersomnia Hypersomnia, unspecified documented in this encounter [facility] HealthcareEvaluation note* Diagnosis Rheumatoid arthritis involving multiple sites with positive rheumatoid factor ([facility])- Primary Type I diabetes mellitus with polyneuropathy ([facility]/HCC) Coronary artery disease involving timbi-sha shoshone coronary artery of tim[place]-sha shoshone heart without angina pectoris ([facility]) PAD (peripheral artery disease) ([facility]) Unspecified peripheral vascular disease POTS (postural orthostatic tachycardia syndrome) Unspecified tachycardia Type 1 diabetes mellitus with other circulatory complications Type 1 diabetes mellitus with hyperglycemia (HCC) ([facility]) Encounter for long-term (current) use of medications Encounter for long-term (current) use of other medications Dyslipidemia ([facility]) Other 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 hyperlipidemia half-way (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 ([facility]) Type I diabetes mellitus with polyneuropathy ([facility])- Primary Type 1 diabetes mellitus with hyperglycemia (HCC) ([facility]) POTS (postural orthostatic tachycardia syndrome) Unspecified tachycardia Rheumatoid arthritis involving multiple sites with positive rheumatoid factor ([facility]) Coronary artery disease involving [place] shosh[place] coronary artery of tim[place] shoshone heart without angina pectoris ([facility]) Hypersomnia Hypersomnia, unspecified Chest pain at rest- Primary Unspecified chest pain SOB (shortness of breath) on exertion Shortness of breath Coronary artery disease involving timbi-[place] shoshone coronary artery of tim[place]-sha shoshone heart without angina pectoris ([facility]) Hypersomnia Hypersomnia, unspecified POTS (postural orthostatic tachycardia syndrome) Unspecified tachycardia POTS (postural orthostatic tachycardia syndrome)- Primary Unspecified tachycardia Rheumatoid arthritis involving multiple sites with positive rheumatoid factor ([facility]) documented in this encounter [facility] HealthcareEvaluation note* Diagnosis Rheumatoid arthritis involving multiple sites with positive rheumatoid factor (HCC)- Primary Type I diabetes mellitus with polyneuropathy (HCC) Coronary artery disease involving [place] coronary artery of tim[place] shoshone heart without angina pectoris PAD (peripheral artery disease) Unspecified peripheral vascular disease POTS (postural orthostatic tachycardia syndrome) Unspecified tachycardia Type 1 diabetes mellitus with other circulatory complications (HCC) Type 1 diabetes mellitus with hyperglycemia (HCC) Encounter for long-term (current) use of medications Encounter for long-term (current) use of other medications Dyslipidemia Other 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 hyperlipidemia half-way (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 (HCC) Type I diabetes mellitus with polyneuropathy (HCC)- Primary Type 1 diabetes mellitus with hyperglycemia (HCC) POTS (postural orthostatic tachycardia syndrome) Unspecified tachycardia Rheumatoid arthritis involving multiple sites with positive rheumatoid factor (HCC) Coronary artery disease involving [place] shoshone coronary artery of tim[place]-sha shoshone heart without angina pectoris Hypersomnia Hypersomnia, unspecified Chest pain at rest- Primary Unspecified chest pain SOB (shortness of breath) on exertion Shortness of breath Coronary artery disease involving [place] shosh[place] coronary artery of tim[place] shoshone heart without angina pectoris Hypersomnia Hypersomnia, unspecified POTS (postural orthostatic tachycardia syndrome) Unspecified tachycardia Coronary artery disease involving [place]osh[place] coronary artery of tim[place] shoshone heart without angina pectoris- Primary Rheumatoid arthritis involving multiple sites with positive rheumatoid factor (HCC) documented in this encounter [facility] HealthcareEvaluation note* Diagnosis Rheumatoid arthritis involving multiple sites with positive rheumatoid factor (HCC)- Primary Type I diabetes mellitus with polyneuropathy (HCC) Coronary artery disease involving [place]osh[place] coronary artery of tim[place] shoshone heart without angina pectoris PAD (peripheral artery disease) Unspecified peripheral vascular disease POTS (postural orthostatic tachycardia syndrome) Unspecified tachycardia Type 1 diabetes mellitus with other circulatory complications (HCC) Type 1 diabetes mellitus with hyperglycemia (HCC) Encounter for long-term (current) use of medications Encounter for long-term (current) use of other medications Dyslipidemia Other 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 hyperlipidemia half-way (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 (HCC) Type I diabetes mellitus with polyneuropathy (HCC)- Primary Type 1 diabetes mellitus with hyperglycemia (HCC) POTS (postural orthostatic tachycardia syndrome) Unspecified tachycardia Rheumatoid arthritis involving multiple sites with positive rheumatoid factor (HCC) Coronary artery disease involving [place] shosh[place] coronary artery of tim[place]-sha shoshone heart without angina pectoris Hypersomnia Hypersomnia, unspecified Chest pain at rest- Primary Unspecified chest pain SOB (shortness of breath) on exertion Shortness of breath Coronary artery disease involving timbi-sha shoshone coronary artery of timbi-sha shoshone heart without angina pectoris Hypersomnia Hypersomnia, unspecified POTS (postural orthostatic tachycardia syndrome) Unspecified tachycardia MDD (major depressive disorder), recurrent episode, moderate (HCC)- Primary Type I diabetes mellitus with polyneuropathy (HCC) Rheumatoid arthritis involving multiple sites with positive rheumatoid factor (HCC) Type 1 diabetes mellitus with hyperglycemia (HCC) POTS (postural orthostatic tachycardia syndrome) Unspecified tachycardia Coronary artery disease involving timbi-[place] shosh[place] coronary artery of timbi-sha shoshone heart without angina pectoris documented in this encounter [facility] HealthcareEvaluation note* Diagnosis Onset Date Resolution Status Admit Date Chronic osteomyelitis of right lower leg acuteOctober 2024 9:01amRight tibial fractureacuteOctober 2024 9:01am [facility] Work Phone: Hisvezb general Narrative - Reported* Type Description Date Medical History diabetes mallitus Medical Historychronic depressionMedical Historyhigh blood pressureMedical Historyhigh cholesterolMedical Historyrheumatoid arthritisSurgical Historyopen heart surgery 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 * Frozen Shoulder Exercises (Lebanese) documented in this encounterProMedica Health SystemInstructionsNot on file documented in this encounterProMedica Health SystemInstructionsNot on file documented in this encounterProMedica Health SystemInstructionsNot on file documented in this encounterProMedica Health SystemInstructionsNot on file documented in this encounterProMedica Health SystemInstructionsNot on file documented in this encounterProMedica Health SystemInstructionsNot on file documented in this encounterProMedica Health SystemInstructionsNot on file documented in this encounterProMemorial Health System [facility] SystemReason for referral (narrative)* Consultation (Routine) - AuthorizedSpecialtyDiagnoses / Procedures Referred By ContactReferred To ContactRheumatology Diagnoses Rheumatoid arthritis involving multiple sites, unspecified whether rheumatoid factor present ([facility]) Zen Viera DO [address] [facility] [place] [address] Collin Saba MD [address] [address] Referral IDStatusReasonStart DateExpiration DateVisits RequestedVisits [id number] Specialty Services Required / [facility] SystemRetemi for referral (narrative)No reason for referral information availableFirelands Regional Med Center Work Phone: Reason for visit Narrative* Consultation (Routine) - Pending ReviewSpecialtyDiagnoses / ProceduresReferred By ContactReferred To ContactRheumatology Diagnoses Rheumatoid arthritis involving multiple sites with positive rheumatoid factor ([facility]) Procedures MT OFFICE OUTPATIENT VISIT 60-74 MINS [facility] [phone] (SNOMED CT) - AMB REFERRAL TO RHEUMATOLOGY Rudolph Hurt MD [address] [place] [address] Phone: tel: fax: Collin Saba MD [address] [address] Phone: tel: fax: Referral IDStatusReasonStart DateExpiration DateVisits RequestedVisits [id number] Review/ [facility] System Summary Purpose Family History No Family History Records FoundNo Family History Records FoundNo Family History Records FoundNo Family History Records FoundNo Family History Records FoundNo Family History Records FoundNo Family History Records FoundNo Family History Records Found Advance Directives Advance Directive Response Recorded Date/ Time Advance Directives No March 03 2:25pm Hospital Course Note MR#: [id number] [facility] Pt. Name: Monica Acosta Admitted: [...] regimen and follow up with the primary digital x ray service engineer. HOSPITAL COURSE: The patient is a 59-year-old [...] Reason for Visit Chief Complaint Admit Date [facility] CONSULT WOUND CARE RT LE PAIN/ULCER WITH June 24, 2025 9:01am Reason for Visit Admit Date Chronic osteomyelitis of right lower leg June 24, 2025 9:01am Right tibial fracture June 24, 2025 9:01am Chief Complaint Admit Date Ear Cleaning, plugged March 11, 2025 12: 50pm Additional Source Comments INFORMATION SOURCE (unrecogn ized section and content) DATE CREATED AUTHOR 10/15/2020 [facility] DATE CREATED AUTHOR AUTHOR'S ORGANIZ ATION 09/23/2021 [facility] DATE CREATED AUTHOR AUTHOR'S ORGANIZ ATION 10/19/2022 [facility] DATE CREATED AUTHOR AUTHOR'S ORGANIZ ATION 04/16/2024 [facility] DATE CREATED AUTHOR AUTHOR'S ORGANIZ ATION 11/21/2024 [facility] DATE CREATED AUTHOR AUTHOR'S ORGANIZ ATION 12/14/2024 [facility] DATE CREATED AUTHOR AUTHOR'S ORGANIZ ATION 03/18/2025 [facility] EP[facility] DATE CREATED AUTHOR AUTHOR'S ORGANIZ ATION 05/13/2025 [facility] REASON FOR VISIT (unrecogniz ed section and content) ReasonCommentsDiabetes XutgmdobVvewmw-wyHuunsaCputhauaQfeupl-apScf patientReason Onset DateCommentsMed Ytkpou1608/30/2023ReasonOnset DateCommentsMed Refill 12/26/2023easonOnset DateCommentsMed Hsipnk8409/12/2023easonOnset DateComments Med Sgaeor5310/19/2024ReasonCommentsFollow-upTBH/FallReasonOnset DateCommentsMed Vwhkko9801/26/2024easonOnset DateCommentsMed Grziql5510/04/2023easonOnset Date CommentsMed Wdmwle814ReasonOnset DateCommentsMed Btetlm86/24/2024Reason Onset DateCommentsMed Yoheal234ReasonCommentsMed RefillReasonOnset Date CommentsMed Dodvkj794ReasonCommentsControlled SubstanceReasonOnset Date CommentsMed Nzceaz404ReasonCommentscontrolled subReasonCommentsDiscuss Pain OptionsReasonOnset DateCommentsMed Vljpzg364ReasonCommentsFollow-up Chest tightnessNot feeling wellReasonCommentsDiabetesFollow-upReasonComments Follow-upBreathing trouble at night low pulse oxReasonCommentsFollow-up3m f/upDepression worse Care Teams (unrecognized sec tion and content) Team MemberRelationshipSpecialtyStart DateEnd Date Zen Viera MD [address] [place] [address] PCP - Generalmily Qvddermp40/10/24Team MemberRelationshipSpecialtyStart Date End Date Zen Viera MD [address], [place] [address] PCP - Generalmily Xingjhem58/10/24Team MemberRelationshipSpecialtyStart Date End Date Rudolph Hurt MD [address] [place] [address] PCP - GeneralFamily Medicine09/19/24Team MemberRelationshipSpecialtyStart DateEnd Date Zen Viera MD [address], [place] [address] PCP - Generalmily Osmtemge06/10/24Team MemberRelationshipSpecialtyStart Date End Date Zen Viera DO [address] [place] [address] [address] [place] [address] PCP - GeneralFamily Medicine09/18/19Team MemberRelationshipSpecialtyStart DateEnd Date Zen VieraDO [address], [place] [address] PCP - GeneralFamily Medicine09/18/19Team MemberRelationshipSpecialtyStart DateEnd Date Rudolph Hurt MD [address] [place] [address] PCP - GeneralFamily Medicine09/19/24Team MemberRelationshipSpecialtyStart DateEnd Date Zen Viera DO [address], [place] [address] PCP - GeneralFamily Medicine09/18/19Team MemberRelationshipSpecialtyStart DateEnd Date SandraEvelioZenemanuel Reinoso DO [address], [place] [address] PCP - GeneralFamily Medicine09/18/19Team MemberRelationshipSpecialtyStart DateEnd Date Zen Viera DO [address], [place] [address] PCP - GeneralFamily Medicine09/18/19Team MemberRelationshipSpecialtyStart DateEnd Date Zen Viera DO [address], [place] [address] PCP - GeneralFamily Medicine09/18/19Team MemberRelationshipSpecialtyStart DateEnd Date SandraEvelioZenemanuel Reinoso DO [address], [place] [address] PCP - GeneralFamily Medicine09/18/19Team MemberRelationshipSpecialtyStart DateEnd Date Zen Viera DO [address], [place] [address] PCP - GeneralFamily Medicine09/18/19Team MemberRelationshipSpecialtyStart DateEnd Date Zen Viera DO [address], [place] [address] PCP - GeneralFamily Medicine09/18/19Team MemberRelationshipSpecialtyStart DateEnd Date Rudolph Hurt MD [address] [place] [address] PCP - GeneralFamily Medicine09/19/24Team MemberRelationshipSpecialtyStart DateEnd Date Rudolph Hurt MD [address] [place] [address] PCP - GeneralFamily Medicine09/21/24Team MemberRelationshipSpecialtyStart DateEnd Date Rudolph Hurt MD [address] [place] [address] PCP - GeneralFamily Medicine09/19/24Team MemberRelationshipSpecialtyStart DateEnd Date Rudolph Hurt MD [address] [place] [address] PCP - [facility] Medicine09/19/24 Team Status: Active Member Role Status Dates Zen Viera DO Primary Care Provider Active Team Status: Inactive Member Role Status Dates Zen Viera DO Primary Care Provider Active Start: December 06, 2024 End: December 06, 2024PeCeja DPM MSAttending ProviderActiveStart: December 06, 2024 End: December 06, 2024Team MemberRelationshipSpecialtyStart DateEnd Date Rudolph Hurt MD [address] [place] [address] PCP - [facility] Medicine09/19/24Team MemberRelationshipSpecialtyStart DateEnd Date Rudolph Hurt MD [address] [place] [address] PCP - [facility] Medicine09/19/24Team MemberRelationshipSpecialtyStart DateEnd Date Rudolph Hurt MD [address] [place] [address] PCP - [facility] Medicine09/19/24Team MemberRelationshipSpecialtyStart DateEnd Date Rudolph Hurt MD [address] [place] [address] PCP - [facility] Medicine09/19/24Team MemberRelationshipSpecialtyStart DateEnd Date Rudolph Hurt MD [address] [place] [address] PCP - Generalmily Medicine09/19/24Team MemberRelationshipSpecialtyStart DateEnd Date Rudolph Hurt MD [address] [place] [address] [facility]/24Team MemberRelationshipSpecialtyStart DateEnd Date Rudolph Hurt MD [address] [place] [address] PCP - [facility] Medicine09/19/24Team MemberRelationshipSpecialtyStart DateEnd Date Rudolph Hurt MD [address] [place] [address] PCP - [facility]09/19/24 Team Status: Active Member Role Status Dates Rudolph Hurt MD Primary Care Provider Active Team Status: Inactive Member Role Status Dates Silvia Blank APRN Attending Provider Active Start: March 11, 2025 End: March 11, 2025[facility] Jacob Hurt Care ProviderActiveStart: March 11, 2025 End: March 11, 2025Team MemberRelationshipSpecialtyStart DateEnd Date Rudolph Hurt MD [address] [place] [address] PCP - [facility] Medicine09/19/24Team MemberRelationshipSpecialtyStart DateEnd Date Rudolph Hurt MD [address] [place] [address] PCP - [facility] Medicine09/19/24 Team Status: Active Member Role/Relationship Status Dates Rudolph Hurt MD Primary Care Provider Active Team Status: Inactive Member Role/Relationship Status Dates Rudolph Hurt MD Primary Care Provider Active S tart: June 24, 2025 End: June 24, 2025JustMelonie Bahending ProviderActiveStart: June 24, 2025 End: June 24, 2025 Goals (unrecognized section and content) Goals may [...] BE BASED ON THE PRIMARY CLINICAL RECORDS. [facility]. provides no warranty or guarantee of the accuracy or completeness of information in this document.
--- NOTE | 2025-07-01 13:32 | CT_ITS ---
The [address] [address] Patient Name: MONICA ACOSTA MRN: [id number] date: 1960 Sex: F Assigned Patient Location: CT Current Patient Location: Accession/Order Number: [id number] Exam Date: 07/01/2025 13:38 Report Date: 07/02/2025 08:19 At the request of: BROOKE WOODARD DO Procedure: CT lower leg RT wo con CT RIGHT LOWER EXTREMITY WITHOUT CONTRAST CLINICAL DATA: Chronic osteomyelitis COMPARISON: 12/05/2024 Spiral axial unenhanced images were obtained through the right lower leg. Sagittal, coronal and 3-D volume rendered reconstructions were reviewed. This CT exam was performed using one or more following dose reduction techniques: Automated exposure control, adjustment of the mA and/or kV according to patient size, or use of iterative reconstruction technique. There is still a tibial intramedullary dwaine with 2 proximal and 2 distal interlocking screws. The bony structures are osteopenic. There is deformity at the anteromedial aspect of the distal tibial shaft with cortical irregularity/destruction. There may be related to an old fracture, with and without associated chronic osteomyelitis. There were some superficial bone fragments/heterotopic bone in that area which are no longer seen and presumably removed surgically however correlation is recommended. There is no an overlying cleft within the skin and surrounding induration. This could relate to surgical wound or ulceration. Suspected old fracture deformity is also seen at the distal fibular shaft. No other fractures, dislocation or bony destruction are seen. There is slight lateral subluxation of the patella with narrowing of the lateral patellofemoral joint space and marginal spurring. There is also tibiofemoral joint space narrowing and minimal marginal spurring. There is a trace amount of fluid at the suprapatellar bursa. There is diffuse atherosclerotic plaque involving vessels at the lower leg. CT/CT lower leg RT wo con IMPRESSION: INTERVAL REMOVAL OF SUBCUTANEOUS BONY DENSITIES AT THE ANTEROMEDIAL RAMÍREZ, DESCRIBED. SIMILAR BONY CHANGES INVOLVING THE DISTAL SHAFTS OF THE TIBIA AND FIBULA WHICH MAY RELATE TO OLD INJURY AND/OR SUPERIMPOSED CHRONIC OSTEOMYELITIS. NEW OVERLYING SKIN WOUND/ULCER. Impression dictated by: Shona Muñoz M.D. 07/02/2025 8:19 AM Dictation Location: [facility] Electronically authenticated by: [id number] Y Date: 07/02/2025 08:19
[2025-07-01 13:53] LABS: Hematocrit 43.3 % (36.0-48.0); Hemoglobin 14.5 g/dL (12.0-16.0); Immature Granulocytes Abs Auto 0.03 10^3/uL (0.00-0.03); Immature Granulocytes Pct Auto 0.3 % (0.0-0.5); Lymphocytes Absolute Auto 1.4 10^3/uL (1.2-3.8); Mean Corpuscular HGB Conc 33.5 g/dL (29.9-35.2); Mean Corpuscular Hemoglobin 31.7 pg (26.7-34.0); Mean Corpuscular Volume 94.7 fL (81.0-99.0); Platelet Count 271 10^3/uL (150-450); Red Blood Count 4.57 10^6/uL (4.20-5.40); White Blood Count 9.8 10^3/uL (4.0-11.0)
== END 2025-07-01 13:08 | disposition home or self-care (01) ==
PROVIDERS: PCP Family Medicine; Visit Provider Orthopaedic Surgery Orthopaedic Trauma
DX: M86.661 Other chronic osteomyelitis, right tibia and fibula (principal); S82.201A Unspecified fracture of shaft of right tibia, initial encounter for closed fracture; M05.79 Rheumatoid arthritis with rheumatoid factor of multiple sites without organ or systems involvement; E55.9 Vitamin D deficiency, unspecified
CPT/HCPCS: 36415; 73700; 76376; 82306; 85025; 85652; 86140